=== PATIENT | male | born 1950 | race Caucasian/White ===

== ENCOUNTER 2017-03-07 20:05 | Inpatient (IN) | payer MEDICARE, MEDICAID ==
[~2017-03-07] VITALS: Ht 167.6 cm; Wt 90.7 kg
[~2017-03-07 20:05] MED LIST: AC325T PO; ALBU8.5H2 IH; ASP81TEC PO; BETH25TA PO; CEPH500C PO; CIPR500S2 PO; CLPD75T PO; CPR500T PO; EZET10TA5 PO; FENO145T2 PO; FLAXSEED PO; FLT11013 IH; FLUN7INH IH; FLUO20CA25 PO; HYDR-3583 PO; IBP800T PO; INSU100C4 SQ; ISM60TCR PO; LORA10TA7 PO; LORA1TAB PO; MAGN100T3 PO; MAGN250T12 PO; MTP25TSR PO; MULT-608 PO; NF-ESOM40C PO; NTR.4SL SL; ONDAN4ODT PO; ONDN4T PO; OXAP600T2 PO; OXYC-309 PO; OXYC1TAB87 PO; PGLT30T PO; PHEN200C PO; PHN100C PO; RAMI10CA PO; SIMV80TA3 PO; SULF1TAB38 PO; TML.25OP OU; TMSL.4C PO; ZOLP10TA5 PO; oxycodone PO
[2017-03-07] MEDS ORDERED: fentaNYL INJECTION 100 MCG/2 ML AMP IVP STA (20:15)
[2017-03-07 20:28] LABS: BASOPHILS % (AUTO) 0 % (0-10); EOSINOPHILS # (AUTO) 0.1 10^3/uL (0.0-0.3); EOSINOPHILS % (AUTO) 1 % (0-10); LYMPHOCYTES # (AUTO) 2.8 X 10^3 (1.0-4.0); LYMPHOCYTES % (AUTO) 28 % (12-44); MEAN CORPUSCULAR HEMOGLOBIN 30 PG (25-34); MEAN CORPUSCULAR HGB CONC 36 G/DL (32-36); MEAN CORPUSCULAR VOLUME 83 FL (80-99); MONOCYTES # (AUTO) 0.9 X 10^3 (0.0-1.0); MONOCYTES % (AUTO) 9 % (0-12); NEUTROPHILS # (AUTO) 6.1 X 10^3 (1.8-7.8); NEUTROPHILS % (AUTO) 62 % (42-75); PLATELET COUNT 331 10^3/uL (130-400); RED BLOOD COUNT 4.72 10^6/uL (4.35-5.85); RED CELL DISTRIBUTION WIDTH 13.7 % (10.0-14.5); WHITE BLOOD COUNT 9.8 10^3/uL (4.3-11.0)
[2017-03-07 20:31] LABS: INR 1.1 (0.8-1.4); PROTHROMBIN TIME PATIENT 14.1 SEC (12.2-14.7)
[2017-03-07 20:43] LABS: ALANINE AMINOTRANSFERASE 22 U/L (0-55); ALBUMIN 4.2 G/DL (3.2-4.5); ANION GAP 11 MMOL/L (5-14); ASPARTATE AMINO TRANSFERASE 35 U/L (5-34); BILIRUBIN,TOTAL 0.5 MG/DL (0.1-1.0); BLOOD UREA NITROGEN 13 MG/DL (7-18); BUN/CREATININE RATIO 15; CALCIUM 9.1 MG/DL (8.5-10.1); CARBON DIOXIDE 23 MMOL/L (21-32); CHLORIDE 97 MMOL/L (98-107); CREATININE SERUM 0.87 MG/DL (0.60-1.30); GFR ESTIMATED > 60; GLUCOSE 125 MG/DL (70-105); MAGNESIUM 1.8 MG/DL (1.8-2.4); SODIUM 131 MMOL/L (135-145); TOTAL PROTEIN 6.7 G/DL (6.4-8.2)
[2017-03-07] MEDS ORDERED: OLAN2.5T19 PO (20:46)
[2017-03-07] MEDS ORDERED: GABA-486 PO (20:46)
[2017-03-07] MEDS ORDERED: TEMA15CA PO (20:46)
[2017-03-07] MEDS ORDERED: EZET10TA5 PO (20:46)
[2017-03-07 20:51] LABS: TROPONIN I < 0.30 NG/ML (<0.30)
[2017-03-07] MEDS ORDERED: morphine INJ 10 MG/ML 1ML (SYR OR VIAL) IVP STA (21:00)
--- NOTE | 2017-03-07 21:01 | Diagnostic Imaging Report ---
INDICATION: Left-sided pain post fall TECHNIQUE: Three views of the left shoulder. CORRELATION STUDY: None FINDINGS: The glenohumeral and acromioclavicular alignment are maintained and unremarkable. There is no evidence for acute fracture or dislocation. Visualized soft tissues are unremarkable. IMPRESSION: 1. Negative for acute bony abnormality about the shoulder. Dictated by: Dictated on workstation # [id number]
--- NOTE | 2017-03-07 21:06 | Diagnostic Imaging Report ---
INDICATION: Left hip pain post fall. TECHNIQUE: AP pelvis, 9:01 p.m. CORRELATION UMBERTO None. FINDINGS: There is an impacted, angulated, left proximal femur fracture. Fractures at the lateral aspect of the femoral neck approaching the intertrochanteric region. Coxa vera alignment of approximately 90 degrees is present. Impaction at the major fracture line. Right hip is maintained. The remainder of the pelvis is intact. IMPRESSION: Impacted angulated proximal left femur fracture. Dictated by: Dictated on workstation # [id number]
--- NOTE | 2017-03-07 21:08 | Diagnostic Imaging Report ---
INDICATION: Fall with left-sided pain, hip fracture. TECHNIQUE: Single view chest, 9:00 p.m. CORRELATION STUDY: 12/23/2010. FINDINGS: Poststernotomy and coronary artery bypass changes. A long coronary artery stent is over the superior left heart border. Heart size and mediastinum are enlarged and mildly prominent. Vasculature is within normal limits. There is what appears to be likely senescent type change about the lung parenchyma, without evidence for infiltrate, effusion or pneumothorax. No displaced fracture. IMPRESSION: Poststernotomy changes. Negative for acute abnormality. Dictated by: Dictated on workstation # [id number]
--- NOTE | 2017-03-07 21:09 | Diagnostic Imaging Report ---
INDICATION: Pain post fall. TECHNIQUE: AP and lateral views left femur 9:03 PM. CORRELATION STUDY: None FINDINGS: There is impacted and angulated fracture at the left femoral neck/intertrochanteric portion of the proximal femur. Coxa vera alignment with approximately 90 degrees angulation. Impaction present. More distally, the remainder of the femur intact. Knee with mild degenerative changes, otherwise maintained. IMPRESSION: 1. Impacted angulated proximal left femur fracture. Dictated by: Dictated on workstation # [id number]
--- NOTE | 2017-03-07 22:08 | Diagnostic Imaging Report ---
PROCEDURE: CT left lower extremity without contrast. TECHNIQUE: Multiple contiguous axial images were obtained through the left lower extremity without the use of intravenous contrast. Sagittal and coronal reformations were then performed. INDICATION: Fall, hip fracture. FINDINGS: There is a comminuted fracture at the proximal left femur. Fracture is at the mid to distal aspect of the femoral neck extending into the intertrochanteric portion. This involves the greater and lesser trochanters. There is a moderate impaction. Moderate angulation of approximately 90 degrees is present. There is superior subluxation of the femoral shaft. The femoral head acetabular relationship is maintained. The pelvis is intact. There is some edema around the fracture lines. Urinary bladder appears to be mildly distended. Penile prosthesis is present. IMPRESSION: Comminuted impacted angulated proximal left femur fracture at the level of the femoral neck and intertrochanteric portion. Dictated by: Dictated on workstation # [id number]
[2017-03-07 22:12] VITALS: BP 137/75
[2017-03-07] MEDS ORDERED: LORazepam INJ 2 MG/ML (ATIVAN) VIAL IV PRN (22:45)
[2017-03-07] MEDS ORDERED: CATHETER FLUSH 10 ML SYR IV PRN (22:45)
[2017-03-07] MEDS ORDERED: morphine INJ 10 MG/ML 1ML (SYR OR VIAL) IV PRN (22:45)
[2017-03-07] MEDS: D5 1/2 NS 1000 ML IV SOLUTION 1,000 ML IV SCH (22:50)
[2017-03-08 00:28] VITALS: BP 132/70
[2017-03-08] MEDS: fentaNYL INJECTION 100 MCG/2 ML AMP IVP PRN ×9 (00:45→20:11)
[2017-03-08] MEDS: inSUlin (REGULAR) HUMAN 1 UNIT/0.01 ML (CHARGE PER UNIT) SC SCH ×4 (02:16→18:10)
--- NOTE | 2017-03-08 02:45 | ED Hip Pain/Injury ---
General Chief Complaint: Hip/Pelvic Problems Stated Complaint: L HIP FRACTURE; SEIZURE DISORDER; CAD Nursing Triage Note: LEFT HIP PAIN S/P FALL FROM STANDING POSITION AFTER SEIZURE. APPROX. 1900 Source: patient, old records History of Present Illness Time seen by provider: 20:15 Initial Comments PT ARRIVES [facility]IA [facility] FROM HOME PT HAS KNOWN SEIZURE DISORDER, AND STATES HE WAS ON HIS WAY [place] AND HAD A SEIZURE AND INJURED LEFT HIP DENIES HITTING HIS HEAD--WAS WITNESSED BY A FRIEND ALSO STATES LEFT SHOULDER IS SORE, BUT "DOESN'T REALLY HURT" EMS GAVE 150 MCG FENTANYL PRIOR TO ARRIVAL NO HEAD PAIN NO NECK OR BACK PAIN NO PARESTHESIAS OR MOTOR DEFICITS NO CHEST PAIN OR SHORTNESS OF BREATH OR PALPITATIONS NO NAUSEA/VOMITING NO RECENT ILLNESS Other PCP: LEORA HERMOSILLO [employer] INSTALLER: MERCEDES ADAMS Allergies and Home Medications Allergies Coded Allergies: codeine (Unverified Allergy, Unknown, 03/07/17) diazepam (Unverified Allergy, Unknown, 03/07/17) doxycycline (Unverified Allergy, Unknown, RASH, 03/07/17) phenobarbital (Unverified Allergy, Unknown, 03/07/17) RELAXES ME TOO MUCH piperacillin (Unverified Allergy, Unknown, RASH, 03/07/17) terazosin (Unverified Allergy, Unknown, 03/07/17) CHEST PAIN Home Medications Acetaminophen 325 Mg Tablet, 325-650 MG PO Q6H PRN, (Reported) Albuterol 8.5 Gm Hfa.aer.ad, 8.5 GM IH Q4H PRN, (Reported) 2 PUFFS Aspirin 81 Mg Tabec, 81 MG PO DAILY, (Reported) Bethanechol Chloride 25 Mg Tablet, 25 MG PO QID, (Reported) Clopidogrel 75 Mg Tablet, 1 EACH PO DAILY, (Reported) Esomeprazole Mag Trihydrate 40 Mg Capsule.dr, 40 MG PO DAILY, (Reported) Ezetimibe 10 Mg Tablet, 10 MG PO HS, (Reported) Ezetimibe 10 Mg Tablet, 1 TAB PO UD, #30 (Reported) Fenofibrate,Micronized 145 Mg Tablet, 1 EACH PO AT SUPPER, (Reported) Flunisolide 7 Gm Inh, 0 IH BID, (Reported) 2 PUFFS Fluoxetine Hcl 20 Mg Capsule, 40 MG PO WITH SUPPER, (Reported) Gabapentin 100 Mg Capsule, 1 CAP PO UD, #30 (Reported) Loratadine 10 Mg Tablet, 10 MG PO HS, (Reported) Lorazepam 1 Mg Tablet, 1 EACH PO BID, (Reported) Magnesium Oxide 250 Mg Tablet, 1 EACH PO TIDWM, (Reported) Multivitamins 1 Tab Tablet, 1 TAB PO DAILY, (Reported) Nitroglycerin 0.4 Mg Subl, 0.4 MG SL NEEDED, (Reported) Olanzapine 2.5 Mg Tablet, 1 TAB PO UD, #30 (Reported) Phenytoin Sodium 100 Mg Cap, 200 MG PO DAILY, (Reported) Phenytoin Sodium 100 Mg Cap, 100 MG PO HS, (Reported) Pioglitazone Hcl 30 Mg Tab, 30 MG PO DAILY, (Reported) Ramipril 10 Mg Capsule, 10 MG PO NOON, (Reported) Simvastatin 80 Mg Tablet, 40 MG PO HS, (Reported) Tamsulosin Hcl 0.4 Mg Cap, 0.4 MG PO DAILY@1630, (Reported) Temazepam 15 Mg Capsule, 1 CAP PO UD, #30 (Reported) Timolol 15 Ml Drops, 1 DROP OU DAILY, (Reported) Constitutional: no symptoms reported EENTM: no symptoms reported Respiratory: no symptoms reported Cardiovascular: no symptoms reported Gastrointestinal: no symptoms reported Genitourinary: no symptoms reported Musculoskeletal: see HPI, No back pain, joint pain (LEFT HIP, LEFT SHOULDER), No neck pain Skin: no symptoms reported Psychiatric/Neurological: See HPI, Denies Headache, Denies Numbness, Denies Paresthesia, Seizure, Denies Tingling Past Gflinkj-Ogwnkg-Kdvcld Hx Patient Social History Alcohol Use: Denies Use Recreational Drug Use: No Smoking Status: Current Everyday Smoker (1 PPD) Type Used: Cigarettes 2nd Hand Smoke Exposure: Yes Recent Foreign Travel: No Contact w/Someone Who Travel: No Recent Infectious Disease Expo: No Immunizations Up To Date Date of Pneumonia Vaccine: Aug 08, 2010 Date of Influenza Vaccine: Aug 08, 2012 Seasonal Allergies Seasonal Allergies: No Surgeries HX Surgeries: Yes (CABG 1999; TOTAL OF 16 STENTS--LAST ONE IN 2011, PER PT ON 02/25/17. LITHOTRIPSY; LEFT CARPAL TUNNEL AND MULTIPLE LEFT TRIGGER FINGER RELEASES 2012--DR. CLAYTON; ) Surgeries: Appendectomy, Gallbladder, Orthopedic, Penile Implant, Renal, Transurethral Resection Respiratory Hx Respiratory Disorders: Yes Respiratory Disorders: COPD Cardiovascular Hx Cardiac Disorders: Yes (CABG IN 2000; 16 CARDIAC STENTS) Cardiac Disorders: Coronary Artery Disease, High Cholesterol, Hypertension Neurological Hx Neurological Disorders: Yes Neurological Disorders: Headaches /Migraines, Seizure Disorder Reproductive System Hx Reproductive Disorders: Yes (ED--PENILE IMPLANT) Sexually Transmitted Disease: No Genitourinary Hx Genitourinary Disorders: Yes (ED; URINARY FREQUENCY) Genitourinary Disorders: Benign Prostatic Hyperpl, Kidney Stones Gastrointestinal Hx Gastrointestinal Disorders: Yes Gastrointestinal Disorders: Gastroesophageal Reflux, Ulcer Musculoskeletal Hx Musculoskeletal Disorders: Yes (MUSCLE WEAKNESS) Musculoskeletal Disorders: Arthritis Endocrine Hx Endocrine Disorders: Yes Endocrine Disorders: Diabetes, Non-Insulin dep HEENT HX ENT Disorders: Yes ([place] Palsy) HEENT Disorders: Cataract, Glaucoma Cancer Hx Cancer: No Psychosocial Hx Psychiatric Problems: Yes Behavioral Health Disorders: Anxiety, Bipolar, Depression Integumentary HX Skin/Integumentary Disorder: No Blood Transfusions Hx Blood Disorders: Yes Physical Exam Vital Signs Vital Sign - Last 12Hours 03/07/17 20:14 Temp 98.2 Pulse 78 Resp 20 B/P (MAP) 150/83 Pulse Ox 96 O2 Delivery Nasal Cannula O2 Flow Rate 2.00 Capillary Refill : Less Than 3 Seconds General Appearance: No Apparent Distress, WD/WN HEENT: Other (NO EXTERNAL EVIDENCE OF TRAUMA TO HEAD) Neck: Full Range of Motion, Normal Inspection, Non Tender, Supple Cardiovascular: Regular Rate, Rhythm, No Edema, No JVD, No Murmur, Normal Peripheral Pulses Respiratory: Normal Breath Sounds, No Accessory Muscle Use, No Respiratory Distress Peripheral Pulses: 1+ Dorsalis Pedis (R), 1+ Left Dors-Pedis (L), 1+ Radial Pulses (R), 1+ Radial Pulses (L) Gastrointestinal: Normal Bowel Sounds, No Organomegaly, No Pulsatile Mass, Non Tender, Soft Back: No CVA Tenderness, No Vertebral Tenderness Extremity: Normal Capillary Refill, No Calf Tenderness, No Pedal Edema, Other ( LEFT HIP TENDERNESS WITH SHORTNENING AND EXTERNAL ROTOATION OF LEFT LEG. MILD LEFT SHOULDER TENDERNESS WITHOUT DEFORMITY AND FULL ROM OF LEFT ARM. 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 Norm as Tested Skin: Normal Color, Warm/Dry Progress/Results/Core Measures Results/Orders Lab Results Laboratory Tests Test 03/07/17 20:05 Range/Units White Blood Count 9.8 4.3-11.0 10^3/uL Red Blood Count 4.72 4.35-5.85 10^6/uL Hemoglobin 14.0 13.3-17.7 G/DL Hematocrit 39 L 40-54 % Mean Corpuscular Volume 83 80-99 FL Mean Corpuscular Hemoglobin 30 25-34 PG Mean Corpuscular Hemoglobin Concent 36 32-36 G/DL Red Cell Distribution Width 13.7 10.0-14.5 % Platelet Count 331 130-400 10^3/uL Mean Platelet Volume 8.0 7.4-10.4 FL Neutrophils (%) (Auto) 62 42-75 % Lymphocytes (%) (Auto) 28 12-44 % Monocytes (%) (Auto) 9 0-12 % Eosinophils (%) (Auto) 1 0-10 % Basophils (%) (Auto) 0 0-10 % Neutrophils # (Auto) 6.1 1.8-7.8 X 10^3 Lymphocytes # (Auto) 2.8 1.0-4.0 X 10^3 Monocytes # (Auto) 0.9 0.0-1.0 X 10^3 Eosinophils # (Auto) 0.1 0.0-0.3 10^3/uL Basophils # (Auto) 0.0 0.0-0.1 10^3/uL Prothrombin Time 14.1 12.2-14.7 SEC INR Comment 1.1 0.8-1.4 Activated Partial Thromboplast Time 32 24-35 SEC Sodium Level 131 L 135-145 MMOL/L Potassium Level 4.0 3.6-5.0 MMOL/L Chloride Level 97 L 98-107 MMOL/L Carbon Dioxide Level 23 21-32 MMOL/L Anion Gap 11 5-14 MMOL/L Blood Urea Nitrogen 13 7-18 MG/DL Creatinine 0.87 0.60-1.30 MG/DL Estimat Glomerular Filtration Rate > 60 BUN/Creatinine Ratio 15 Glucose Level 125 H 70-105 MG/DL Calcium Level 9.1 8.5-10.1 MG/DL Magnesium Level 1.8 1.8-2.4 MG/DL Total Bilirubin 0.5 0.1-1.0 MG/DL Aspartate Amino Transf (AST/SGOT) 35 H 5-34 U/L Alanine Aminotransferase (ALT/SGPT) 22 0-55 U/L Alkaline Phosphatase 61 40-136 U/L Troponin I < 0.30 <0.30 NG/ML Total Protein 6.7 6.4-8.2 G/DL Albumin 4.2 3.2-4.5 G/DL Phenytoin (Dilantin) Level 11.8 10.0-20.0 UG/ML My Orders Orders - LAURITA MOORE DO Fentanyl Injection (Sublimaze Injection (03/07/17 20:15) Chest 1 View, Ap/Pa Only (03/07/17 20:20) Femur, Left, 2 Views (03/07/17 20:20) Pelvis (03/07/17 20:20) Hip, Left, 2 Views (03/07/17 20:20) Shoulder, Left, 3 Views (03/07/17 20:20) Saline Lock/Iv-Start (03/07/17 20:20) Cbc With Automated Diff (03/07/17 20:20) Comprehensive Metabolic Panel (03/07/17 20:20) Magnesium (03/07/17 20:20) Protime With Inr (03/07/17 20:20) Partial Thromboplastin Time (03/07/17 20:20) Troponin I (03/07/17 20:20) Vital Signs/I&O Vital Sign - Last 12Hours 03/07/17 20:14 Temp 98.2 Pulse 78 Resp 20 B/P (MAP) 150/83 Pulse Ox 96 O2 Delivery Nasal Cannula O2 Flow Rate 2.00 Blood Pressure Mean: 90 Point of Care Testing Finger Stick Blood Glucose: 194 Progress Note : Progress Note NO DETERIORATION IN PT'S CONDITION DURING ER STAY Diagnostic Imaging Comments XRAYS LEFT SHOULDER--NO ACUTE PROCESS XRAYS LEFT HIP, FEMUR AND PELVIS--FX LEFT FEMORAL NECK /INTERTROCHANTERIC AREA CXR--NO ACUTE PROCESS ALL PER RADIOLOGIST REPORTS Reviewed: Reviewed by Me Departure Communication Progress Notes 2099--SPOKE WITH DR. MCCRARY, SURGEON PASTEURIZER. ACCEPTS PT FOR ADMIT--PLAN IS TO TAKE PT TO SURGERY SOMETIME TOMORROW 2107--SPOKE WITH DR. ESCOTO FOR MEDICAL MANAGEMENT 2109--ATTEMPTING TO CONTACT DR. VARGAS FOR CARDIOLOGY CONSULT--MESSAGE LEFT ON CELL 2124--SPOKE WITH DR. VARGAS, INFORMED OF CONSULT. 2130--DR. MATUTE CALLED. DR. MCCRARY HAS CONTACTED HIM AND HE WILL BE TAKING PT TO SURGERY TOMORROW AFTERNOON. WANTS CT OF HIP DONE TONIGHT. Impression Impression: Primary Impression: Closed left hip fracture Additional Impressions: Seizure disorder CAD WITH CABG AND MULTIPLE STENTS NIDDM Disposition: ADMITTED INPATIENT Condition: Stable Decision to Admit Reason: Admit from ER (Trauma) Decision to Admit/Date: Mar 07, 2017 Time/Decision to Admit Time: 21:00 Departure-Patient Inst. Referrals: SARY GUPTA MD (PCP) Primary Care Physician LAURITA MOORE DO March 08, 2017 02:45
[2017-03-08 03:32] VITALS: BP 126/76
[2017-03-08 05:32] LABS: BASOPHILS % (AUTO) 0 % (0-10); EOSINOPHILS % (AUTO) 0 % (0-10); LYMPHOCYTES # (AUTO) 1.5 X 10^3 (1.0-4.0); LYMPHOCYTES % (AUTO) 14 % (12-44); MEAN CORPUSCULAR HEMOGLOBIN 29 PG (25-34); MEAN CORPUSCULAR HGB CONC 35 G/DL (32-36); MEAN CORPUSCULAR VOLUME 83 FL (80-99); MEAN PLATELET VOLUME 7.8 FL (7.4-10.4); MONOCYTES # (AUTO) 1.1 X 10^3 (0.0-1.0); MONOCYTES % (AUTO) 11 % (0-12); NEUTROPHILS % (AUTO) 75 % (42-75); PLATELET COUNT 298 10^3/uL (130-400); RED BLOOD COUNT 4.74 10^6/uL (4.35-5.85); RED CELL DISTRIBUTION WIDTH 13.8 % (10.0-14.5); WHITE BLOOD COUNT 10.7 10^3/uL (4.3-11.0)
[2017-03-08 05:51] LABS: ALANINE AMINOTRANSFERASE 271 U/L (0-55); ALBUMIN 3.8 G/DL (3.2-4.5); ANION GAP 9 MMOL/L (5-14); ASPARTATE AMINO TRANSFERASE 712 U/L (5-34); BILIRUBIN,TOTAL 1.7 MG/DL (0.1-1.0); BLOOD UREA NITROGEN 10 MG/DL (7-18); BUN/CREATININE RATIO 12; CALCIUM 8.4 MG/DL (8.5-10.1); CARBON DIOXIDE 23 MMOL/L (21-32); CHLORIDE 97 MMOL/L (98-107); CREATININE SERUM 0.81 MG/DL (0.60-1.30); GFR ESTIMATED > 60; GLUCOSE 181 MG/DL (70-105); SODIUM 129 MMOL/L (135-145); TOTAL PROTEIN 6.1 G/DL (6.4-8.2)
[2017-03-08] MEDS: CATHETER FLUSH 10 ML SYR IV SCH ×3 (06:08→21:22)
[2017-03-08] MEDS: D5 1/2 NS 1000 ML IV SOLUTION 1,000 ML IV SCH ×2 (07:13→16:17)
--- NOTE | 2017-03-08 08:25 | Diagnostic Imaging Report ---
2 views of the left hip. INDICATION: Injury. FINDINGS: There is an impacted angulated intertrochanteric fracture. Coxa vara alignment is seen. No subluxation or dislocation of the hip joint. IMPRESSION: Displaced and angulated intertrochanteric fracture. Dictated by: Dictated on workstation # [id number]
--- NOTE | 2017-03-08 08:50 | Consultation-Cardiology ---
HPI-Cardiology Cardiology Consultation Date of Consultation 03/08/17 Date of Admission Indication: coronary artery disease HPI 66 years old gentleman with extensive cardiac history, had history of CABG, multiple interventions in the past, hypertension and hyperlipidemia in addition to tobaccoism. Patient was getting out of a chair where he had unsteady gait and fell and injured himself. He denied any syncope, denied any seizure activity, denied any chest pain or shortness of breath. Still having pain on his side from the fall. I was called for preoperative cardiac evaluation Home Medications & Allergies Allergies: Coded Allergies: codeine (Unverified Allergy, Unknown, 03/07/17) diazepam (Unverified Allergy, Unknown, 03/07/17) doxycycline (Unverified Allergy, Unknown, RASH, 03/07/17) phenobarbital (Unverified Allergy, Unknown, 03/07/17) RELAXES ME TOO MUCH piperacillin (Unverified Allergy, Unknown, RASH, 03/07/17) terazosin (Unverified Allergy, Unknown, 03/07/17) CHEST PAIN Home Medication List Reviewed: Yes BLA-Leemom-Muxval Hx Patient Social History Marital Status: Employed/Student: retired Alcohol Use: Denies Use Recreational Drug Use: No Smoking Status: Current Everyday Smoker (1 PPD) Type Used: Cigarettes 2nd Hand Smoke Exposure: Yes Recent Foreign Travel: No Recent Infectious Disease Expo: No Recent Hopitalizations: No Physical Abuse Screen: No Sexual Abuse: No Immunizations Up To Date Date of Pneumonia Vaccine: Nov 08, 2016 Date of Influenza Vaccine: Aug 08, 2012 Past Medical History past medical history as discussed below Family Medical History Family Medical Hx noncontributory to his current condition Constitutional: see HPI, malaise, weakness EENTM: no symptoms reported, see HPI Respiratory: no symptoms reported, see HPI Cardiovascular: no symptoms reported, see HPI Gastrointestinal: no symptoms reported, see HPI Genitourinary: no symptoms reported, see HPI Musculoskeletal: see HPI, back pain, joint pain, other (left leg and hip pain) Skin: no symptoms reported, see HPI Psychiatric/Neurological: No Symptoms Reported, See HPI Reviewed Test Results Reviewed Test Results Lab Laboratory Tests Test 03/07/17 20:05 03/08/17 02:04 03/08/17 05:20 Range/Units White Blood Count 9.8 10.7 4.3-11.0 10^3/uL Red Blood Count 4.72 4.74 4.35-5.85 10^6/uL Hemoglobin 14.0 13.9 13.3-17.7 G/DL Hematocrit 39 L 39 L 40-54 % Mean Corpuscular Volume 83 83 80-99 FL Mean Corpuscular Hemoglobin 30 29 25-34 PG Mean Corpuscular Hemoglobin Concent 36 35 32-36 G/DL Red Cell Distribution Width 13.7 13.8 10.0-14.5 % Platelet Count 331 298 130-400 10^3/uL Mean Platelet Volume 8.0 7.8 7.4-10.4 FL Neutrophils (%) (Auto) 62 75 42-75 % Lymphocytes (%) (Auto) 28 14 12-44 % Monocytes (%) (Auto) 9 11 0-12 % Eosinophils (%) (Auto) 1 0 0-10 % Basophils (%) (Auto) 0 0 0-10 % Neutrophils # (Auto) 6.1 8.0 H 1.8-7.8 X 10^3 Lymphocytes # (Auto) 2.8 1.5 1.0-4.0 X 10^3 Monocytes # (Auto) 0.9 1.1 H 0.0-1.0 X 10^3 Eosinophils # (Auto) 0.1 0.0 0.0-0.3 10^3/uL Basophils # (Auto) 0.0 0.0 0.0-0.1 10^3/uL Prothrombin Time 14.1 12.2-14.7 SEC INR Comment 1.1 0.8-1.4 Activated Partial Thromboplast Time 32 24-35 SEC Sodium Level 131 L 129 L 135-145 MMOL/L Potassium Level 4.0 4.0 3.6-5.0 MMOL/L Chloride Level 97 L 97 L 98-107 MMOL/L Carbon Dioxide Level 23 23 21-32 MMOL/L Anion Gap 11 9 5-14 MMOL/L Blood Urea Nitrogen 13 10 7-18 MG/DL Creatinine 0.87 0.81 0.60-1.30 MG/DL Estimat Glomerular Filtration Rate > 60 > 60 BUN/Creatinine Ratio 15 12 Glucose Level 125 H 181 H 70-105 MG/DL Calcium Level 9.1 8.4 L 8.5-10.1 MG/DL Magnesium Level 1.8 1.8-2.4 MG/DL Total Bilirubin 0.5 1.7 H 0.1-1.0 MG/DL Aspartate Amino Transf (AST/SGOT) 35 H 712 H 5-34 U/L Alanine Aminotransferase (ALT/SGPT) 22 271 H 0-55 U/L Alkaline Phosphatase 61 111 40-136 U/L Troponin I < 0.30 <0.30 NG/ML Total Protein 6.7 6.1 L 6.4-8.2 G/DL Albumin 4.2 3.8 3.2-4.5 G/DL Phenytoin (Dilantin) Level 11.8 10.0-20.0 UG/ML Glucometer 194 H 70-110 MG/DL Physical Exam Vital Signs Vital Sign - Last 12Hours 03/07/17 20:14 Temp 98.2 Pulse 78 Resp 20 B/P (MAP) 150/83 Pulse Ox 96 O2 Delivery Nasal Cannula O2 Flow Rate 2.00 Capillary Refill : Less Than 3 SecondsLess Than 3 Seconds General Appearance: WD/WN, Mild Distress Eyes: Bilateral Eye EOMI, Bilateral Eye Normal Inspection, Bilateral Eye PERRL HEENT: PERRL/EOMI, TMs Normal, Normal ENT Inspection, Pharynx Normal Neck: Full Range of Motion, Normal Inspection, Non Tender, Supple, Carotid Bruit Respiratory: Chest Non Tender, Lungs Clear, Normal Breath Sounds, No Accessory Muscle Use, No Respiratory Distress Cardiovascular: Regular Rate, Rhythm, No Edema, No Gallop, No JVD, Normal Peripheral Pulses, Systolic Murmur Gastrointestinal: Normal Bowel Sounds, No Organomegaly, No Pulsatile Mass, Non Tender, Soft Back: Normal Inspection, No CVA Tenderness, No Vertebral Tenderness Extremity: Normal Capillary Refill, Normal Inspection, Normal Range of Motion, Non Tender, No Calf Tenderness, No Pedal Edema Neurologic/Psychiatric: Alert, Oriented x3, No Motor/Sensory Deficits, Normal Mood/Affect Skin: Normal Color, Warm/Dry Lymphatic: No Adenopathy A/P-Cardiology Admission Diagnosis coronary artery disease Hypertension Hyperlipidemia Femur fracture Assessment/Plan Coronary artery disease, history of CABG, multiple interventions, patient is reporting having a total of 16 stents in the past, no chest pain was reported at this time, I will evaluate 12-lead EKG. Continue to monitor. Hypertension, restart home medication monitor blood pressure Hyperlipidemia Left femur fracture, managed by Dr. Aleman Seizure disorder. Maintained on Dilantin. Preoperative cardiac evaluation, I will evaluate 12-leads EKG, monitor. Patient is considered at intermediate to high risk for perioperative cardiovascular complications, decision regarding the surgery, risks versus benefit is deferred to the surgeon. Clinical Quality Measures DVT/VTE Risk/Contraindication: Risk Factor Score Per Nursin RFS Level Per Nursing on Admit: 4+=Very High MANE VARGAS MD March 08, 2017 08:50
[2017-03-08 09:00] VITALS: BP 137/87
[2017-03-08] MEDS ORDERED: PHENYTOIN 100 MG/2 ML IV SCH (09:00)
[2017-03-08] MEDS ORDERED: NS IV SCH (09:23)
[2017-03-08] MEDS ORDERED: PHENYTOIN IV SCH (09:23)
[2017-03-08] MEDS ORDERED: LACTATED RINGERS 1,000 ML IV PRN (09:42)
[2017-03-08] MEDS ORDERED: TIMO5DRO5 OU (10:20)
[2017-03-08] MEDS ORDERED: IBUP-30 PO (10:20)
[2017-03-08] MEDS ORDERED: ISM60TCR PO (10:20)
[2017-03-08] MEDS ORDERED: SIMV40TA4 PO (10:20)
[2017-03-08] MEDS ORDERED: FLT11013 INH (10:20)
[2017-03-08] MEDS ORDERED: ONDANSETRON 4 MG/2 ML (SDV) Z0FRAN ONE ×2 (11:02→11:34)
[2017-03-08] MEDS ORDERED: LACTATED RINGERS 1,000 ML IV ONE (11:34)
[2017-03-08] MEDS ORDERED: LIDOCAINE PF 2% 10 ML (XYLOCAINE) AMP ONE (11:34)
[2017-03-08] MEDS ORDERED: fentaNYL INJECTION 100 MCG/2 ML AMP ONE ×2 (11:34→14:47)
[2017-03-08] MEDS ORDERED: proPOfol 200 MG/20 ML (DIPRIVAN) VIAL IV ONE (11:34)
[2017-03-08] MEDS ORDERED: ROCURONIUM 50 MG/5 ML (ZEMURON) VIAL IV ONE (11:34)
[2017-03-08] MEDS ORDERED: SUCCINYLCHOLINE INJ 100 MG/5 ML SYR ONE (11:34)
[2017-03-08] MEDS ORDERED: MIDAZOLAM 2 MG/2 ML (VERSED) VIAL ONE (11:35)
[2017-03-08] MEDS ORDERED: ceFAZolin 2 GM/50 ML NS 50 ML IV NR (11:55)
--- NOTE | 2017-03-08 11:57 | History & Physicial ---
History of Present Illness History of Present Illness Reason for visit/HPI 66 yr old WM with a displaced intertrochanteric hip fracture after he fell while getting up from a chair yesterday. He has no history of hip pathology. he does have seizure disorder. he was DEMOND by cardiology as he does have a significant health history including CABG. He understands the need and also the risk of surgical stabilization. Date of Admission Mar 07, 2017 at 21:00 I consulted on this patient on 03/08/17 11:[address] Allan Maloney DO Admitting Physician Shahram Mccallum MD Consult Allergies and Home Medications Allergies Coded Allergies: codeine (Unverified Allergy, Unknown, 03/07/17) diazepam (Unverified Allergy, Unknown, 03/07/17) doxycycline (Unverified Allergy, Unknown, RASH, 03/07/17) phenobarbital (Unverified Allergy, Unknown, 03/07/17) RELAXES ME TOO MUCH piperacillin (Unverified Allergy, Unknown, RASH, 03/07/17) terazosin (Unverified Allergy, Unknown, 03/07/17) CHEST PAIN Home Medications Albuterol 8.5 Gm Hfa.aer.ad, 2 PUFF IH Q4H PRN for SHORTNESS OF BREATH, ( Reported) Aspirin 81 Mg Tabec, 81 MG PO DAILY, (Reported) Bethanechol Chloride 25 Mg Tablet, 25 MG PO QID, (Reported) Clopidogrel 75 Mg Tablet, 75 MG PO DAILY, (Reported) Esomeprazole Mag Trihydrate 40 Mg Capsule.dr, 40 MG PO DAILY, (Reported) Ezetimibe 10 Mg Tablet, 10 MG PO HS, (Reported) Fenofibrate,Micronized 145 Mg Tablet, 145 MG PO 1700, (Reported) Fluoxetine Hcl 20 Mg Capsule, 40 MG PO DAILY, (Reported) TAKES 2 (20MG) CAPSULES Fluticasone Propionate 1 Ea Aero, 1 PUFF INH BID, (Reported) Gabapentin 100 Mg Capsule, 100 MG PO HS, (Reported) Ibuprofen 200 Mg Tablet, 400 MG PO DAILY, (Reported) TAKES 2 (200MG) TABLETS Isosorbide Mononitrate 60 Mg Tab, 60 MG PO BID, (Reported) Loratadine 10 Mg Tablet, 10 MG PO HS, (Reported) Lorazepam 1 Mg Tablet, 1 MG PO BID, (Reported) Magnesium Oxide 250 Mg Tablet, 250 MG PO TID, (Reported) Multivitamins 1 Tab Tablet, 1 TAB PO DAILY, (Reported) Nitroglycerin 0.4 Mg Subl, 0.4 MG SL UD PRN for CHEST PAIN, (Reported) Olanzapine 2.5 Mg Tablet, 2.5 MG PO HS, (Reported) Phenytoin Sodium 100 Mg Cap, 200 MG PO BID, (Reported) Pioglitazone Hcl 30 Mg Tab, 30 MG PO DAILY, (Reported) Ramipril 10 Mg Capsule, 10 MG PO 1200, (Reported) Simvastatin 40 Mg Tablet, 40 MG PO HS, (Reported) Tamsulosin Hcl 0.4 Mg Cap, 0.4 MG PO 1730, (Reported) Temazepam 15 Mg Capsule, 15 MG PO HS, (Reported) Timolol Maleate 5 Ml Drops, 1 DROP OU BID, (Reported) Past Mxzgvfo-Ethemh-Bbqxmt Hx Patient Social History Marrital Status: Employed/Student: retired Alcohol Use: Denies Use Recreational Drug Use: No Smoking Status: Current Everyday Smoker (1 PPD) Type Used: Cigarettes 2nd Hand Smoke Exposure: Yes Physical Abuse Screen: No Sexual Abuse: No Recent Foreign Travel: No Contact w/other who traveled: No Recent Hopitalizations: No Recent Infectious Disease Expo: No Immunizations Up To Date Date of Pneumonia Vaccine: Nov 08, 2016 Date of Influenza Vaccine: Aug 08, 2012 Seasonal Allergies Seasonal Allergies: No Surgeries HX Surgeries: Yes Surgeries: Appendectomy, Gallbladder, Orthopedic, Penile Implant, Renal, Transurethral Resection Respiratory Hx Respiratory Disorders: Yes Cardiovascular Hx Cardiovascular Disorders: Yes (CABG IN 1999; 16 CARDIAC STENTS) Cardiac Disorders: Coronary Artery Disease, High Cholesterol, Hypertension Neurological Hx Neurological Disorders: Yes Neurological Disorders: Headaches /Migraines, Seizure Disorder Reproductive System Hx Reproductive Disorders: Yes (ED--PENILE IMPLANT) Sexually Transmitted Disease: No HIV/AIDS: No Genitourinary Hx Genitourinary Disorders: Yes (ED; URINARY FREQUENCY) Genitourinary Disorders: Benign Prostatic Hyperpl, Kidney Stones Gastrointestinal Hx Gastrointestinal Disorders: Yes Gastrointestinal Disorders: Gastroesophageal Reflux, Ulcer Musculoskeletal Hx Musculoskeletal Disorders: Yes (MUSCLE WEAKNESS) Musculoskeletal Disorders: Arthritis Endocrine Hx Endocrine Disorders: Yes Endocrine Disorders: Diabetes, Non-Insulin dep HEENT HX ENT Disorders: Yes ([place] Palsy) HEENT Disorders: Cataract, Glaucoma Loss of Vision: Denies Hearing Impairment: Hard of Hearing Cancer Hx Cancer: No Psychosocial Hx Psychiatric Problems: Yes Behavioral Health Disorders: Anxiety, Bipolar, Depression Integumentary HX Skin/Integumentary Disorder: No Blood Transfusions Hx Blood Disorders: Yes Adverse Reaction to a Blood Tr: No Constitutional: no symptoms reported Physical Exam Vital Signs Vital Sign - Last 12Hours 03/07/17 20:14 Temp 98.2 Pulse 78 Resp 20 B/P (MAP) 150/83 Pulse Ox 96 O2 Delivery Nasal Cannula O2 Flow Rate 2.00 Capillary Refill : Less Than 3 SecondsLess Than 3 Seconds Extremity: Other (LLE short and externally rotated, 5/5 dorsiflexion, SILT all dermatomes, 2/4 DP, PT) Assessment/Plan Admission Diagnosis ASSESSMENT: L hip intertrochanteric hip fracture PLAN: L hip intramedullary nailing plan for WBAT LLE post op post op DVT prophylaxis Clinical Quality Measures DVT/VTE Risk/Contraindication: Risk Factor Score Per Nursin RFS Level Per Nursing on Admit: 4+=Very High ALLAN MALONEY DO March 08, 2017 11:57
--- NOTE | 2017-03-08 11:57 | Progress Note-Pre Operative ---
Pre-Operative Progress Note H&P Reviewed The H&P was reviewed, patient examined and no changes noted. Date H&P Reviewed: March 08, 2017 Time H&P Reviewed: 11:57 Pre-Operative Diagnosis: displaced hip fracture ALLAN MATUTE DO March 08, 2017 11:57
[2017-03-08 12:00] VITALS: BP 137/87
[2017-03-08] MEDS ORDERED: morphine INJ 10 MG/ML 1ML (SYR OR VIAL) ONE (13:02)
[2017-03-08] MEDS ORDERED: SEVOFLURANE (ULTANE) 15 ML INHAL SOLN ONE ×2 (13:29→13:51)
[2017-03-08] MEDS ORDERED: BUP/EPI 0.5% 1:200,000 (SENSORCAINE) 30 ML VIAL ONE (13:51)
--- NOTE | 2017-03-08 14:21 | Diagnostic Imaging Report ---
Intraoperative views of the left hip. INDICATION: Left hip pinning. FINDINGS: There is interlocked intramedullary fixation with nail through the femoral neck associated with good reduction of the previously seen displaced intertrochanteric fracture on presentation. Fluoroscopy time utilized is 2 minutes and 52 seconds. IMPRESSION: Open reduction internal fixation of left femoral neck fracture in good alignment. Dictated by: Dictated on workstation # [id number]
[2017-03-08] MEDS ORDERED: morphine INJ 4 MG/ML 1 ML (VIAL/SYRINGE) ONE (14:54)
[2017-03-08] MEDS ORDERED: morphine INJ 4 MG/ML 1 ML (VIAL/SYRINGE) IVP PRN (14:58)
--- NOTE | 2017-03-08 15:31 | OPERATIVE REPORT ---
DATE OF SERVICE: 03/08/2017 SURGEON: Con Maloney DO EMBOSSER OPERATOR: ROLAND Aguilar This is a medically necessary procedure. Assistance is necessary for retraction of vital neurovascular structures, without assistance, the procedure would not be possible. PREOPERATIVE DIAGNOSIS: Displaced intratrochanteric left femur fracture. COMPLICATIONS: None. SPECIMENS SENT: None. ESTIMATED BLOOD LOSS: Minimal. ANESTHESIA: General endotracheal intubated anesthesia with local anesthetic. HISTORY OF PRESENT ILLNESS: The patient is a very pleasant 66-year-old gentleman who has a history of multiple seizures. He does take medications for this. Yesterday, he was standing up from a chair, felt a pop and fell to the floor. Denies syncope. He had severe hip pain that led him to the ER where imaging demonstrated a displaced basicervical/intertrochanteric hip fracture. CT scan did confirm this fracture orientation and therefore I concluded that an intramedullary nail would be the most prudent stabilization device. He understood the risks and benefits. Please note the patient did have significant medical history, including CABG, he was cleared by cardiology, another factor that led to my decision to do the nail versus a hemiarthroplasty was then nail is significantly quicker with less blood loss. OPERATION: The patient was identified by name on wristband in the preoperative holding area. His operative site was signed, consent was signed, SCDs were placed, antibiotics were started. He was taken to the operating room theater, placed under general endotracheal tube anesthesia and placed on the fracture table in the supine position. All bony prominences were well padded. His unaffected right lower extremity was flexed at the hip, externally rotates, so as to be out of the way. The ipsilateral left lower extremity was placed in traction, internal rotated, and we manipulated this lower extremity until the fracture was reduced on AP and lateral x-ray. At this point, we prepped and draped the patient in the usual sterile fashion. A formal timeout was conducted. At this point, I made an incision just proximal to the greater trochanter on the left side. I advanced a wire to the piriformis fossa and into the femur. I then reamed the lateral cortex. I then obtained a bald tipped reaming tanvir and I passed this ball tipped tanvir through the fracture site, down to just above the supracondylar line. I measure the appropriate length of my nail and at this point, I reamed up to an 11.5 in diameter. I then chose the nail, placed it on the dentist private practice and carefully packed it longitudinally down the femur until it was seated in the appropriate position. I then, with the aiming device, made an incision over the lateral thigh and passed another guidewire through the medial and lateral cortex of the femur to an area just short of subchondral bone in the femoral head. I obsessed the AP lateral x-ray and the trajectory was appropriate. I measured the length of the helical blade and then obtained this blade. I reamed the lateral cortex and I seated the helical blade into the proximal femur. At this point, I compressed across the fracture site. I did achieve good compression with a very good reduction. I then removed the aiming arm off of the nail and turned my attention to the distal lock. I did place a static lock and I did this using perfect algaaciq fluoroscopy technique. Once the screw was in place, final imaging demonstrated appropriate position of all hardware. I at this point I irrigated the wounds and I closed them in my usual layered fashion and closed the skin with dominic. I applied dressings and took the patient to the supine position. He tolerated the procedure well. The plan at this time is to admit the patient to the hospital where he will be given appropriate medical care by the medicine team. He will be weightbear as tolerated. He will have DVT prophylaxis per medicine. Job ID: [id number] DocumentID: [id number] Dictated Date: 03/08/2017 13:56:36 Tree Climber Date: 03/08/2017 15:30:17 Dictated By: CON MALONEY DO
[2017-03-08 16:27] VITALS: BP 143/74
[2017-03-08] MEDS ORDERED: NITROGLYCERIN SUBLINGUAL 0.4 MG TAB (NITROSTAT) SL PRN (17:45)
[2017-03-08] MEDS ORDERED: BISACODYL 5 MG (DULCOLAX) TABLET PO PRN (17:45)
[2017-03-08] MEDS ORDERED: RT-ALBUTEROL SULF 2.5 MG/3 ML PRE-MIX VIAL IH PRN (18:00)
[2017-03-08] MEDS: ceFAZolin 2 GM/50 ML NS 50 ML IV SCH (18:11)
[2017-03-08] MEDS: ISOSORBIDE MONONITRATE 60 MG (IMDUR) TAB PO SCH (18:12)
[2017-03-08] MEDS: BETHANECHOL 25 MG (URECHOLINE) TAB PO SCH ×2 (18:12→21:22)
[2017-03-08] MEDS: ALFUZOSIN HCL 10 MG TAB (UROXATRAL) PO SCH (18:12)
[2017-03-08] MEDS ORDERED: ONDANSETRON 4 MG/2 ML (SDV) Z0FRAN IVP PRN (19:45)
[2017-03-08 20:20] VITALS: BP 124/73
[2017-03-08] MEDS: OLANZapine 2.5 MG (ZyPREXA) TAB PO SCH (21:20)
[2017-03-08] MEDS: eZETimibe 10 MG (ZETIA) TABLET PO SCH (21:20)
[2017-03-08] MEDS: LORATADINE (CLARITIN) 10 MG TAB PO SCH (21:20)
[2017-03-08] MEDS: PHENYTOIN 100 MG (DILANTIN) CAP PO SCH (21:20)
[2017-03-08] MEDS: TEMAZEPAM 15 MG (RESTORIL) CAP PO SCH (21:20)
[2017-03-08] MEDS: GABAPENTIN 100 MG (NEURONTIN) CAP PO SCH (21:20)
[2017-03-08] MEDS: SIMvastatin 40 MG (ZOCOR) TAB PO SCH (21:20)
[2017-03-08] MEDS: LORazepam 1 MG (ATIVAN) TAB PO SCH (21:20)
[2017-03-08] MEDS: TIMOLOL MALEATE 0.5% 5 ML (TIMOPTIC) BTL OU SCH (21:23)
[2017-03-08] MEDS: RT-FLUTICASONE 110 MCG (FLOVENT) PER PUFF INH SCH (21:23)
[2017-03-09] VITALS: BP 103/58
[2017-03-09] MEDS: inSUlin (REGULAR) HUMAN 1 UNIT/0.01 ML (CHARGE PER UNIT) SC SCH ×2 (00:11→06:23)
[2017-03-09] MEDS: ceFAZolin 2 GM/50 ML NS 50 ML IV SCH ×3 (02:46→18:28)
[2017-03-09] MEDS: fentaNYL INJECTION 100 MCG/2 ML AMP IVP PRN ×4 (02:50→21:38)
[2017-03-09 04:00] VITALS: BP 100/62
[2017-03-09] MEDS: ISOSORBIDE MONONITRATE 60 MG (IMDUR) TAB PO SCH ×2 (06:00→17:15)
[2017-03-09] MEDS: BETHANECHOL 25 MG (URECHOLINE) TAB PO SCH ×4 (06:00→20:44)
[2017-03-09] MEDS: PANTOPRAZOLE 40 MG (PROTONIX) TAB PO SCH (06:00)
[2017-03-09] MEDS: CATHETER FLUSH 10 ML SYR IV SCH ×3 (06:01→20:45)
[2017-03-09 06:03] LABS: MEAN PLATELET VOLUME 8.4 FL (7.4-10.4); RED BLOOD COUNT 3.48 10^6/uL (4.35-5.85); RED CELL DISTRIBUTION WIDTH 13.5 % (10.0-14.5)
--- NOTE | 2017-03-09 06:18 | Progress Note (SOAP) ---
Subjective Subjective/Events-last exam Feels ok, pain controlled, no concerns Objective Exam Vital Signs Date Time Temp Pulse Resp B/P (MAP) Pulse Ox O2 Delivery O2 Flow Rate FiO2 03/09/17 04:00 97.5 92 20 100/62 96 Nasal Cannula 2.00 03/09/17 00:00 96.6 88 16 103/58 98 Nasal Cannula 2.00 03/08/17 21:24 96 3.00 03/08/17 20:20 96.4 94 20 124/73 95 Nasal Cannula 2.00 03/08/17 20:00 3.00 03/08/17 16:27 96.6 91 20 143/74 96 Nasal Cannula 2.00 03/08/17 12:00 97.1 82 20 137/87 97 Nasal Cannula 2.00 03/08/17 10:03 2.50 03/08/17 09:00 97.1 82 20 137/87 97 Nasal Cannula 2.00 I & O 03/09/17 07:00 Intake Total 820 ml Output Total 2220 ml Balance -1400 ml Capillary Refill : Less Than 3 SecondsLess Than 3 Seconds General Appearance: No Apparent Distress Respiratory: No Accessory Muscle Use, No Respiratory Distress Cardiovascular: Regular Rate, Rhythm, Normal Peripheral Pulses Gastrointestinal: soft Extremity: Non Tender, No Calf Tenderness, Swelling, Other (Dressing dry, good motor) Results Lab Laboratory Tests 03/08/17 15:04: Glucometer 170H 03/08/17 18:09: Glucometer 195H 03/09/17 00:10: Glucometer 198H 03/09/17 05:30: White Blood Count 9.0, Red Blood Count 3.48L, Hemoglobin 10.3#L, Hematocrit 29L , Mean Corpuscular Volume 85, Mean Corpuscular Hemoglobin 30, Mean Corpuscular Hemoglobin Concent 35, Red Cell Distribution Width 13.5, Platelet Count 271, Mean Platelet Volume 8.4 Assessment/Plan Assessment/Plan Assess & Plan/Chief Complaint Left Base femoral neck/IT fracture Plan: up with PT today Clinical Quality Measures DVT/VTE Risk/Contraindication: Risk Factor Score Per Nursin RFS Level Per Nursing on Admit: 4+=Very High ASHTYN RICHARDSON MD March 09, 2017 6:18 am
[2017-03-09 06:20] LABS: ALANINE AMINOTRANSFERASE 259 U/L (0-55); ALBUMIN 3.4 G/DL (3.2-4.5); ANION GAP 10 MMOL/L (5-14); ASPARTATE AMINO TRANSFERASE 288 U/L (5-34); BILIRUBIN,TOTAL 0.8 MG/DL (0.1-1.0); BLOOD UREA NITROGEN 10 MG/DL (7-18); BUN/CREATININE RATIO 9; CALCIUM 8.1 MG/DL (8.5-10.1); CARBON DIOXIDE 22 MMOL/L (21-32); CHLORIDE 97 MMOL/L (98-107); CREATININE SERUM 1.09 MG/DL (0.60-1.30); GFR ESTIMATED > 60; GLUCOSE 154 MG/DL (70-105); POTASSIUM 4.1 MMOL/L (3.6-5.0); SODIUM 129 MMOL/L (135-145); TOTAL PROTEIN 5.3 G/DL (6.4-8.2)
[2017-03-09 08:00] VITALS: BP 110/59
--- NOTE | 2017-03-09 08:33 | Cardiology Progress Note ---
Subjective Subjective/Events-last exam Patient in bed, complaining of left leg pain, denies any CP or dyspnea. Review of Systems General: No Night Sweats, No Fatigue, No Malaise HEENT: No Visual Changes, No Dysphasia, No Sore Throat Pulmonary: No Dyspnea, No Cough Cardiovascular: No: Chest Pain, Orthopnea, Palpitations Gastrointestinal: No: Abdominal Pain, Nausea, Vomiting Genitourinary: No Dysuria, No Frequency Musculoskeletal: leg pain (left hip/leg), No: back pain, neck pain Neurological: Weakness, No: Change in speech, Confusion, Numbness Objective-Cardiology Exam Last Set of Vital Signs Vital Signs 03/09/17 04:00 Temp 97.5 Pulse 92 Resp 20 B/P (MAP) 100/62 Pulse Ox 96 O2 Delivery Nasal Cannula O2 Flow Rate 2.00 Capillary Refill : Less Than 3 SecondsLess Than 3 Seconds I&O Intake and Output 03/09/17 00:00 Intake Total 520 ml Output Total 2370 ml Balance -1850 ml Intake Oral 420 ml IV Total 100 ml Output Urine Total 1470 ml Estimated Blood Loss 600 ml Other 300 ml General: Alert, Oriented X3, Cooperative HEENT: Atraumatic, PERRLA Neck: Supple, No JVD, No Thyromegaly Lungs: Clear to Auscultation, Normal Air Movement Heart: Regular Rate, Normal S1, Normal S2, No Murmurs Abdomen: Normal Bowel Sounds, Soft, No Tenderness, No Hepatosplenomegaly, No Masses Extremities: No Clubbing, No Cyanosis, No Edema, Normal Pulses, No Tenderness/ Swelling Skin: No Rashes, No Breakdown, No Significant Lesion Neuro: Normal Gait, Normal Speech, Strength at 5/5 X4 Ext, Normal Tone, Sensation Intact Psych/Mental Status: Mental Status NL, Mood NL Results Lab Laboratory Tests 03/09/17 05:30 A/P-Cardiology Admission Diagnosis coronary artery disease Hypertension Hyperlipidemia Femur fracture Assessment/Plan Coronary artery disease, history of CABG, multiple interventions, patient is reporting having a total of 16 stents in the past, no chest pain was reported at this time,follows with Dr. Oconnor. I will try to obtain a copy for further review. Hypertension, controlled. Continue to monitor BP/HR Hyperlipidemia-continue to monitor. Left femur fracture, managed by Dr. Aleman Seizure disorder. Maintained on Dilantin. Clinical Quality Measures DVT/VTE Risk/Contraindication: Risk Factor Score Per Nursin RFS Level Per Nursing on Admit: 4+=Very High JATIN MARTÍNEZ March 09, 2017 08:33
--- NOTE | 2017-03-09 09:18 | Physical Therapy Evaluation ---
PT Evaluation-General Medical Diagnosis Admission Date Mar 07, 2017 at 21:00 Medical Diagnosis: L intertrochanteric fx Onset Date: April 06, 2017 Therapy Diagnosis Therapy Diagnosis: weakness; abn gait Height/Weight Height (Feet): 5 Height (Inches): 6.00 Weight (Pounds): 200 Weight (Ounces): 0.0 Precautions Precautions/Isolations: Fall Prevention, Standard Precautions Weight Bear Status Weight Bearing Restriction: Weight Bearing/Tolerated Location Restriction: L LE Referral Physician: Nils Jauregui Reason for Referral: Evaluation/Treatment Medical History Pertinent Medical History: CABG, DM, GERD Additional Medical History anxiety, bipolar Current History Had a seizure as he was standing up; fell and sustained above noted fracture Reviewed History: Yes Social History Home: Single Level Current Living Status: Spouse Entry Into Home: Ramp Prior/Core FIM Prior Level of Function Functional [place] Measure 0=Not Assessed/NA 4=Minimal Assistance 1=Total Assistance 5=Supervision or Setup 2=Maximal Assistance 6=Modified [place] 3=Moderate Assistance 7=Complete [place] Bed Mobility: 7 Transfers (B,C,W/C) (FIM): 7 Gait: 7 Pt is indep at [facility]. Still drives PT Evaluation-Current Subjective Agreeable to get out of bed. Pain Numeric Pain Scale: 9 Location: Left Location Body Site: Hip Pain Description: Ache, Dull Pt/Family Goals "I don't want to go to a 'home'". Objective Patient Orientation: Person, Place, Time, Situation Problem Solving: Fair Attachments: Oxygen (in situ post treatment) ROM/Strength ROM Lower Extremities WFL Strenght Lower Extremities Right LE grossly 5/5; L LE grossly 3/5 and primarily limited by pain. Integumentary/Posture Integumentary intact Bowel Incontinence: No Bladder Incontinence: No Posture normal and symmetrical Neuromuscular (Tone, Coordination, Reflexes) WFL Sensory Vision: Functional Hearing: Impaired ([place]AND) Hand Dominance: Right Sensation Right Lower Extremit: Intact Sensation Left Lower Extremity: Intact Transfers Functional [place] Measure 0=Not Assessed/NA 4=Minimal Assistance 1=Total Assistance 5=Supervision or Setup 2=Maximal Assistance 6=Modified [place] 3=Moderate Assistance 7=Complete [place] Transfers (B, C, W/C) (FIM): 3 Rollin Supine to/from Sit: 3 Sit to/from Stand: 4 Pt took 4-5 steps with FWW to transfer bed to chair; controlled descent with min assit. Gait Mode of Locomotion: Walk Anticipated Mode of Locomotion: Walk Gait Assistive Device: FWW Balance Sitting Static: Good Sitting Dynamic: Good Standing Static: Fair Standing Dynamic: Fair Treatment Sat EOB and worked on deep breathing activity and upright posture; transfer bed to chair with min assist. Pt up in chair post treatment to order breakfast. Assessment/Needs Post fall with sustained fracture that has been repaired. He will benefit from skilleed PT intervention to work on functional transfers and gait progression to allow him to return home as before. Co morbidities that may impact treatment: seizures, anxiety, CABG; Affected body systems: pain, LE weakness; impaired functional transfers/gait; presents as a changing characteristic due to recent surgery and fracture. Eval of moderate complexity. Rehab Potential: Good PT Fdc Goals Fdc Goals PT Fdc Goals Time Frame: March 12, 2017 Transfers (B,C,W/C) (FIM): 4 Gait (FIM): 2 Gait Assistive Device: FWW PT Plan Problem List Problem List: Activity Tolerance, Functional Strength, Safety, Balance, Gait, Transfer, Bed Mobility Treatment/Plan Treatment Plan: Continue Plan of Care Treatment Plan: Bed Mobility, Education, Functional Activity Daniel, Functional Strength, Gait, Safety, Therapeutic Exercise, Transfers Treatment Duration: March 12, 2017 # of days/week 5-6 Visits Per Week: 11 Pt/Family Agrees w/Plan: Yes Safety Risks/Education Patient Education: Transfer Techniques, Reviewed Precautions, Safety Issues Teaching Recipient: Patient Teaching Methods: Demonstration, Discussion Response to Teaching: Reinforcement Needed Time/GCodes Time In: 840 Time Out: 907 Total Billed Treatment Time: 27 Total Billed Treatment visit EVM 15 FA 12 KARAN GAYLE PT March 09, 2017 09:18
[2017-03-09] MEDS: TIMOLOL MALEATE 0.5% 5 ML (TIMOPTIC) BTL OU SCH ×2 (09:22→20:46)
[2017-03-09] MEDS: PHENYTOIN 100 MG (DILANTIN) CAP PO SCH ×2 (09:22→20:44)
[2017-03-09] MEDS: CLOPIDOGREL 75 MG (PLAVIX) TABLET PO SCH (09:23)
[2017-03-09] MEDS: PIOGLITAZONE 30MG (ACTOS) TAB PO SCH (09:23)
[2017-03-09] MEDS: ASPIRIN E.C. 81 MG (ECOTRIN) TAB PO SCH (09:23)
[2017-03-09] MEDS: LORazepam 1 MG (ATIVAN) TAB PO SCH ×2 (09:23→20:44)
[2017-03-09] MEDS: IBUPROFEN TABLET 200 MG TAB PO SCH (09:23)
[2017-03-09] MEDS: FLUoxetine HCL 20 MG (PROzac) CAP PO SCH (09:23)
[2017-03-09] MEDS ORDERED: LACTULOSE SYRUP 10GM/15ML (ENULOSE) 30ML UDC PO PRN (10:00)
[2017-03-09] MEDS ORDERED: RT-ALBUTEROL/IPRATROPIUM 3 ML (DUONEB) VIAL INH SCH (10:00)
--- NOTE | 2017-03-09 10:05 | Consultation-Hospitalist ---
HPI History of Present Illness: HPI/Chief Complaint CC: Medical management for s/p hip fracture repair POD # 1 HPI: This is a 66-year-old white male patient of Dr. Murdock of [place] that suffered a seizure which she has chronic epilepsy and resulted in a fall and resultant hip fracture that was repaired in an uncomplicated manner yesterday. He is doing well has some very mild postop anemia but denied any type of seizure activity and has yet to urinate since the Ulloa catheter has just been discontinued. Overall his pain is moderate to severe in nature I did patient financial counselor him on smoking cessation because he continues to smoke even though he has had bypass surgery in 16 stents placed. At this current time patient is wheezing on exam I do ordered nebulizer treatments and I review all of his home medication labs and vital signs. He has not had a bowel movement so I have started a bowel movement regimen. Source: patient Exam Limitations: no limitations Date Seen 03/09/17 Attending Physician Shahram Aleman Robert R MD Referring Physician Date of Admission Mar 07, 2017 at 21:00 Home Medications & Allergies Home Medications Reviewed patient Home Medication Reconciliation Form Allergies Allergies Coded Allergies codeine (Unverified Allergy, Unknown, 03/07/17) diazepam (Unverified Allergy, Unknown, 03/07/17) doxycycline (Unverified Allergy, Unknown, RASH, 03/07/17) phenobarbital (Unverified Allergy, Unknown, 03/07/17) RELAXES ME TOO MUCH piperacillin (Unverified Allergy, Unknown, RASH, PT HAS RECEIVED CEFAZOLIN IN THE PAST W/O ISSUE, 03/08/17) terazosin (Unverified Allergy, Unknown, 03/07/17) CHEST PAIN Past Qerrgms-Kruipj-Vhkdjz Hx Patient Social History Marrital Status: Employed/Student: retired Alcohol Use: Denies Use Recreational Drug Use: No Smoking Status: Current Everyday Smoker (1 PPD) Type Used: Cigarettes 2nd Hand Smoke Exposure: Yes Physical Abuse Screen: No Sexual Abuse: No Recent Foreign Travel: No Contact w/other who traveled: No Recent Hopitalizations: No Recent Infectious Disease Expo: No Immunizations Up To Date Date of Pneumonia Vaccine: Nov 08, 2016 Date of Influenza Vaccine: Aug 08, 2012 Seasonal Allergies Seasonal Allergies: No Surgeries HX Surgeries: Yes Surgeries: Appendectomy, Gallbladder, Orthopedic, Penile Implant, Renal, Transurethral Resection Respiratory Hx Respiratory Disorders: Yes Respiratory Disorders: COPD Cardiovascular Hx Cardiovascular Disorders: Yes (CABG IN 1999; 16 CARDIAC STENTS) Cardiac Disorders: Coronary Artery Disease, High Cholesterol, Hypertension Neurological Hx Neurological Disorders: Yes Neurological Disorders: Headaches /Migraines, Seizure Disorder Reproductive System Hx Reproductive Disorders: Yes (ED--PENILE IMPLANT) Sexually Transmitted Disease: No HIV/AIDS: No Genitourinary Hx Genitourinary Disorders: Yes (ED; URINARY FREQUENCY) Genitourinary Disorders: Benign Prostatic Hyperpl, Kidney Stones Gastrointestinal Hx Gastrointestinal Disorders: Yes Gastrointestinal Disorders: Gastroesophageal Reflux, Ulcer Musculoskeletal Hx Musculoskeletal Disorders: Yes (MUSCLE WEAKNESS) Musculoskeletal Disorders: Arthritis Endocrine Hx Endocrine Disorders: Yes Endocrine Disorders: Diabetes, Non-Insulin dep HEENT HX ENT Disorders: Yes (Revere Palsy) HEENT Disorders: Cataract, Glaucoma Loss of Vision: Denies Hearing Impairment: Hard of Hearing Cancer Hx Cancer: No Psychosocial Hx Psychiatric Problems: Yes Behavioral Health Disorders: Anxiety, Bipolar, Depression Integumentary HX Skin/Integumentary Disorder: No Blood Transfusions Hx Blood Disorders: Yes Adverse Reaction to a Blood Tr: No Review of Systems Constitutional: see HPI, weakness EENTM: no symptoms reported Respiratory: short of breath, wheezing Cardiovascular: no symptoms reported Gastrointestinal: no symptoms reported Genitourinary: decreased output Musculoskeletal: joint pain Skin: no symptoms reported Psychiatric/Neurological: No Symptoms Reported All Other Systems Reviewed Negative Unless Noted: Yes Physical Exam Physical Exam Vital Signs Vital Sign - Last 12Hours 03/07/17 20:14 Temp 98.2 Pulse 78 Resp 20 B/P (MAP) 150/83 Pulse Ox 96 O2 Delivery Nasal Cannula O2 Flow Rate 2.00 Capillary Refill : Less Than 3 SecondsLess Than 3 Seconds General Appearance: No Apparent Distress, WD/WN, Chronically ill, Obese Eyes: Bilateral Eye Normal Inspection, Bilateral Eye PERRL HEENT: PERRL/EOMI, Normal ENT Inspection, Pharynx Normal Neck: Full Range of Motion, Normal Inspection, Non Tender, Supple, Carotid Bruit Respiratory: Chest Non Tender, No Accessory Muscle Use, No Respiratory Distress , Decreased Breath Sounds, Wheezing Cardiovascular: Regular Rate, Rhythm, No Edema, No Gallop, No JVD, No Murmur, Normal Peripheral Pulses Gastrointestinal: Normal Bowel Sounds, No Organomegaly, No Pulsatile Mass, Non Tender, Soft Back: Normal Inspection, No CVA Tenderness, No Vertebral Tenderness Extremity: Normal Capillary Refill, Normal Inspection, Normal Range of Motion, Non Tender, No Calf Tenderness, No Pedal Edema Neurologic/Psychiatric: Alert, Oriented x3, No Motor/Sensory Deficits, Normal Mood/Affect Skin: Normal Color, Warm/Dry Lymphatic: No Adenopathy Results Results/Procedures Lab Laboratory Tests 03/07/17 20:05 03/08/17 05:20 03/09/17 05:30 Assessment/Plan Admission Diagnosis Assessment: Hip fracture following fall after a seizure Severe coronary artery disease previous bypass surgery 16 stents placed in the past Current smoker COPD Acute wheezing on exam today ordered nebulizer treatments Mild postop anemia History of BPH just discontinued catheter so will monitor for urinary retention Assessment and Plan Plan: Monitor labs Smoking cessation needed nebulizers Monitor blood pressure Appreciate cardiology evaluation due to the extensiveness of the coronary artery disease Clinical Quality Measures DVT/VTE Risk/Contraindication: Risk Factor Score Per Nursin RFS Level Per Nursing on Admit: 4+=Very High CARLOS ESCOTO DO March 09, 2017 10:05
[2017-03-09] MEDS: SENNA W/DOCUSATE (SENOKOT S) TABLET PO SCH ×2 (10:31→20:44)
[2017-03-09] MEDS: oxyCODONE/APAP 7.5-325 MG (PERCOCET 7.5) TABLET PO PRN ×3 (10:47→19:26)
[2017-03-09] MEDS: RT-ALBUTEROL/IPRATROPIUM 3 ML (DUONEB) VIAL INH SCH ×3 (10:47→18:58)
[2017-03-09] MEDS: RT-FLUTICASONE 110 MCG (FLOVENT) PER PUFF INH SCH ×2 (10:49→19:05)
--- NOTE | 2017-03-09 11:20 | Occupational Therapy Eval ---
OT Evaluation-General/PLF Medical Diagnosis Admission Date Mar 07, 2017 at 21:00 Medical Diagnosis: L intertrochanteric fx Onset Date: April 06, 2017 Therapy Diagnosis Therapy Diagnosis: Weakness, decreased ADL skills Height/Weight Height (Feet): 5 Height (Inches): 6.00 Weight (Pounds): 200 Weight (Ounces): 0.0 Precautions Precautions/Isolations: Fall Prevention, Standard Precautions Safety Interventions: None Weight Bear Status Weight Bearing Restriction: Weight Bearing/Tolerated Location Restriction: [place] MANDEL Referral Physician: Nils Jauregui Referral Reason: Activity Tolerance, Self Care, Evaluation/Treatment, Strengthening/ROM Medical History Pertinent Medical History: Arthritis, CABG, DM, GERD, HTN Additional Medical History Bipolar, seizure disorder Current History Pt. fell at home getting out of chair. Friend was there at the time. Reviewed History: Yes Social History Home: Single Level Entry Into Home: Ramp ADL-Prior Level of Function ADL PLOF Comments Pt. states that he receives 5 hours of skilled caregiving per day, 7 days per week. Friend in room and confirms this. He states that they do his laundry, clean his house, do his shopping, and help him bathe and dress. DME/Equipment: Bath Chair, Bedside Commode, Tub/Shower DME/Equipment Comments Pt. has a walker and wheelchair. Drive Self: Yes (Drives "a little." But states that he hasn't since his "medication is messed up.") OT Current Status Subjective Pt. reports 10/10 pain while up in chair, in left hip. Nursing notified. Appearance Pt. is up in chair. Friend is in the room. Pt. keeps his eyes closed during treatment. Continually states, "it hurts!" Agrees to get back into bed. Mental Status/Objective Patient Orientation: Unable to Assess Current Hand Dominance: Right Upper Extremity ROM Pt. demonstrates approximately 80 degrees bilateral shoulder flexion. States that he has arthritis. Upper Extremity Coordination Unable to participate due to pain in coordination testing. Will determine needs at later time. Upper Extremity Strength Pt. demonstrates approximately 2+/5 proximal strength, and 3/5 distally. ADL-Treatment Functional [place] Measure 0=Not Assessed/NA 4=Minimal Assistance 1=Total Assistance 5=Supervision or Setup 2=Maximal Assistance 6=Modified [place] 3=Moderate Assistance 7=Complete IndependenceIRFPAI Quality Coding Scale 6 Independent with activity with or without an assistive device 5 Patient requires set up or clean up by helper. Patient completes activity by themselves 4 Supervision or touching assist (CGA). [place] provide cues , steadying assist 3 The helper provides less than half the effort to complete the activity 2 The helper provides more than half the effort to complete the activity 1 Dependent. The helper does all the effort to complete an activity 7 Patient refused to complete or attempt activity 9 The patient did not perform the activity before the current illness or injury 88 Not attempted due to Medical conditions or safety concerns Lower Body Dressing (FIM): 2 (Pt. is unable to reach bilateral feet to doff or don socks. Is able to hold feet up though for OT to do this.) Transfers (B, C, W/C) (FIM): 3 (Pt. is able to stand up out of chair with min assist needed. Requires increased time and cues, as he is scared to stand. Is able to start taking steps but states that he is hurting too much, and bends knees. OT gets him to bed. Required mod assist to lay back down.) Other Treatments Pt. reporting significant pain during treatment this date. Has difficulty attending to tasks, as he states that he is in so much pain. All needs are met back in bed. Education OT Patient Education: Correct positioning, Modified ADL techniques, Progress toward Goal/Update tx plan, Purpose of tx/functional activities, Reviewed precautions, Rehab process, Transfer techniques Teaching Recipient: Patient, Friend Teaching Methods: Demonstration, Discussion Response to Teaching: Verbalize Understanding, Return Demonstration OT Short Term Goals Short Term Goals Time Frame: March 16, 2017 Eating(FIM): 5 Grooming(FIM): 5 Bathing(FIM): 4 Upper Body Dressing(FIM): 4 Lower Body Dressing(FIM): 4 Toileting(FIM): 4 Transfers (B,C,W/C) (FIM): 5 Toilet/Commode Transfer(FIM): 5 Shower Transfer(FIM): 4 Additional Short Term Goals: 1-Demonstrate ADL Tasks, 2-Verbalize Understanding , 3-ImproveStrength/Daniel 1=Demonstrate adherence to instructed precautions during ADL tasks. 2=Patient will verbalize/demonstrate understanding of assistive devices/ modifications for ADL. 3=Patient will improve strength/tolerance for activity to enable patient to perform ADL's. OT Assisted Goals Assisted Goals Time Frame: March 23, 2017 Eating (FIM): 6 Grooming(FIM): 6 Bathing(FIM): 5 Upper Body Dressing(FIM): 5 Lower Body Dressing(FIM): 5 Toileting(FIM): 5 Transfers (B,C,W/C) (FIM): 6 Toilet/Commode Transfer(FIM): 6 Shower Transfer(FIM): 5 Additional Goals: 1-Demonstrate ADL Tasks, 2-Verbalize Understanding, 3- ImproveStrength/Daniel 1=Demonstrate adherence to instructed precautions during ADL tasks. 2=Patient will verbalize/demonstrate understanding of assistive devices/ modifications for ADL. 3=Patient will improve strength/tolerance for activity to enable patient to perform ADL's. OT Education/Plan Problem List/Assessment Assessment: Decreased Activ Tolerance, Decreased UE Strength, Dependent Transfers, Impaired Bed Mobility, Impaired Funct Balance, Impaired I ADL's, Impaired Self-Care Skills, Restricted Funct UE ROM Discharge Recommendations Plan/Recommendations: Continue POC Therapy D/C Recommendations: Acute Rehab Equpiment Recommendations-D/C: Hip Kit Barriers to Progress Pain management Target Placement Pt. would benefit from acute rehab placement. Treatment Plan/Plan of Care Treatment,Training & Education: Yes Patient would benefit from OT for education, treatment and training to promote independence in ADL's, mobility, safety and/or upper extremity function for ADL' s. Plan of Care: ADL Retraining, Caregiver Training, Functional Mobility, UE Funct Exercise/Act Treatment Duration: March 23, 2017 Visits Per Week: 5-6 Agreement: Yes Rehab Potential: Fair Time/GCodes Start Time: 10:00 Stop Time: 10:25 Total Time Billed (hr/min): 25 Billed Treatment Time 1, EVhigh x 10minutes, FA x 15minutes TONIA VERA OT March 09, 2017 11:20
[2017-03-09] MEDS: inSUlin ASPART (NovoLOG) 1 UNIT/0.01 ML (CHARGE PER UNIT) SC SCH ×3 (11:29→20:45)
--- NOTE | 2017-03-09 12:00 | Anesthesia-General Post-Op ---
General Patient Condition Mental Status/LOC: Same as Preop Cardiovascular: Satisfactory Nausea/Vomiting: Absent Respiratory: Satisfactory Pain: Controlled Complications: Absent Post Op Complications Complications None Follow Up Care/Instructions Patient Instructions None needed. Anesthesia/Patient Condition Patient Condition Patient is doing well, no complaints, stable vital signs, no apparent adverse anesthesia problems. No complications reported per nursing. ANGELINE SIMPSON CRNA March 09, 2017 12:00
[2017-03-09] MEDS: RAMIPRIL 5 MG (ALTACE) CAP PO SCH (12:36)
--- NOTE | 2017-03-09 13:35 | Physical Therapy Daily Note ---
PT Daily Note-Current Subjective Patient agrees to PT. Pain Numeric Pain Scale: 5-Moderate Pain Location: Left Location Body Site: Hip Pain Description: Acute Mental Status Patient Orientation: Person, Time, Situation Attachments: Oxygen Transfers Functional [place] Measure 0=Not Assessed/NA 4=Minimal Assistance 1=Total Assistance 5=Supervision or Setup 2=Maximal Assistance 6=Modified [place] 3=Moderate Assistance 7=Complete IndependenceIRFPAI Quality Coding Scale 6 Independent with activity with or without an assistive device 5 Patient requires set up or clean up by helper. Patient completes activity by themselves 4 Supervision or touching assist (CGA). [place] provide cues , steadying assist 3 The helper provides less than half the effort to complete the activity 2 The helper provides more than half the effort to complete the activity 1 Dependent. The helper does all the effort to complete an activity 7 Patient refused to complete or attempt activity 9 The patient did not perform the activity before the current illness or injury 88 Not attempted due to Medical conditions or safety concerns Transfers (B, C, W/C) (FIM): 4 Scootin Rollin Supine to/from Sit: 4 Sit to/from Stand: 5 SBA with sit to stand transfer to FWW Weight Bearing Weight Bearing Restriction: Weight Bearing/Tolerated Location Restriction: L LE Gait Training Gait (FIM): 1 Distance (FIM): 1=up to 49 ft Distance: 5' Gait Level of Assist: 4 Gait Persons Needed: 1 Gait Assistive Device: FWW antalgic Exercises Supine Ex: Ankle pumps, Heel Slides, Straight leg raise Supine Reps: 10 Seated Therapy Exercises: Long arc quads Seated Reps: 10 Assessment Patient progressing with treatment plan. PT to increase activity as tolerated by patient. PT Short Term Goals Short Term Goals Transfers (B,C,W/C) (FIM): 5 PT Lehr Attendant Goals Lehr Attendant Goals PT Senior Living Goals Time Frame: March 12, 2017 Transfers (B,C,W/C) (FIM): 4 Gait (FIM): 2 Gait Assistive Device: FWW PT Plan Treatment/Plan Treatment Plan: Continue Plan of Care Treatment Plan: Bed Mobility, Education, Functional Activity Daniel, Functional Strength, Gait, Safety, Therapeutic Exercise, Transfers Treatment Duration: March 12, 2017 Visits Per Week: 11 Time/GCodes Time In: 1300 Time Out: 1323 Total Billed Treatment Time: 23 Total Billed Treatment 1 visit FA 15 min EX 8 min PAT,MINERVA PT March 09, 2017 13:35
[2017-03-09 15:30] VITALS: BP 101/55
--- NOTE | 2017-03-09 15:36 | Cardiology Progress Note ---
Subjective Subjective/Events-last exam patient is in bed, feeling better, still having pain in his hip. Review of Systems General: No Chills, No Night Sweats, No Fatigue, No Malaise, No Appetite, No Other HEENT: No Head Aches, No Visual Changes, No Eye Pain, No Ear Pain, No Dysphasia , No Sinus Congestion, No Post Nasal Drip, No Sore Throat, No Other Pulmonary: No Dyspnea, No Cough, No Pleuritic Chest Pain, No Other Cardiovascular: No: Chest Pain, Edema, Lt Headedness, Orthopnea, Other, Palpitations, Paroxysmal Noc. Dyspnea Objective-Cardiology Exam Last Set of Vital Signs Vital Signs 03/09/17 03/09/17 08:00 14:52 Temp 97.6 Pulse 99 Resp 20 B/P (MAP) 110/59 Pulse Ox 96 O2 Delivery Nasal Cannula O2 Flow Rate 3.00 Capillary Refill : Less Than 3 SecondsLess Than 3 Seconds I&O Intake and Output 03/09/17 00:00 Intake Total 520 ml Output Total 2370 ml Balance -1850 ml Intake Oral 420 ml IV Total 100 ml Output Urine Total 1470 ml Estimated Blood Loss 600 ml Other 300 ml General: Alert, Oriented X3, Cooperative HEENT: Atraumatic, PERRLA Neck: Supple, No JVD, No Thyromegaly Lungs: Clear to Auscultation, Normal Air Movement Heart: Regular Rate, Normal S1, Normal S2, No Murmurs Abdomen: Normal Bowel Sounds, Soft, No Tenderness, No Hepatosplenomegaly, No Masses Extremities: No Clubbing, No Cyanosis, No Edema, Normal Pulses, No Tenderness/ Swelling Skin: No Rashes, No Breakdown, No Significant Lesion Neuro: Normal Gait, Normal Speech, Strength at 5/5 X4 Ext, Normal Tone, Sensation Intact Psych/Mental Status: Mental Status NL, Mood NL Results Lab Laboratory Tests 03/09/17 05:30 A/P-Cardiology Admission Diagnosis coronary artery disease Hypertension Hyperlipidemia Femur fracture Assessment/Plan Left femur fracture, status post surgical repair surgery done on March 08, [address] Maloney, recovering slowly. Coronary artery disease, history of CABG, multiple interventions, patient is reporting having a total of 16 stents in the past, no chest pain was reported at this time,follows with Dr. Oconnor. I still did not receive the records. Hypertension, controlled. Continue to monitor BP/HR Hyperlipidemia-continue to monitor. Seizure disorder. Maintained on Dilantin. Clinical Quality Measures DVT/VTE Risk/Contraindication: Risk Factor Score Per Nursin RFS Level Per Nursing on Admit: 4+=Very High MANE VARGAS MD March 09, 2017 15:36
[2017-03-09] MEDS: ALFUZOSIN HCL 10 MG TAB (UROXATRAL) PO SCH (17:19)
[2017-03-09] MEDS: TEMAZEPAM 15 MG (RESTORIL) CAP PO SCH (20:44)
[2017-03-09] MEDS: OLANZapine 2.5 MG (ZyPREXA) TAB PO SCH (20:44)
[2017-03-09] MEDS: SIMvastatin 40 MG (ZOCOR) TAB PO SCH (20:44)
[2017-03-09] MEDS: GABAPENTIN 100 MG (NEURONTIN) CAP PO SCH (20:44)
[2017-03-09] MEDS: LORATADINE (CLARITIN) 10 MG TAB PO SCH (20:45)
[2017-03-09] MEDS: eZETimibe 10 MG (ZETIA) TABLET PO SCH (20:45)
[2017-03-10] VITALS: BP 100/58
[2017-03-10] MEDS: oxyCODONE/APAP 7.5-325 MG (PERCOCET 7.5) TABLET PO PRN ×5 (01:32→19:59)
[2017-03-10] MEDS: fentaNYL INJECTION 100 MCG/2 ML AMP IVP PRN (04:25)
[2017-03-10] MEDS: inSUlin ASPART (NovoLOG) 1 UNIT/0.01 ML (CHARGE PER UNIT) SC SCH ×4 (05:55→21:34)
[2017-03-10] MEDS: ISOSORBIDE MONONITRATE 60 MG (IMDUR) TAB PO SCH ×2 (06:02→17:10)
[2017-03-10] MEDS: PANTOPRAZOLE 40 MG (PROTONIX) TAB PO SCH (06:03)
[2017-03-10] MEDS: BETHANECHOL 25 MG (URECHOLINE) TAB PO SCH ×4 (06:03→21:33)
[2017-03-10] MEDS: CATHETER FLUSH 10 ML SYR IV SCH ×3 (06:25→21:34)
[2017-03-10 06:43] LABS: MEAN PLATELET VOLUME 8.2 FL (7.4-10.4); RED BLOOD COUNT 3.06 10^6/uL (4.35-5.85); RED CELL DISTRIBUTION WIDTH 13.4 % (10.0-14.5); WHITE BLOOD COUNT 8.4 10^3/uL (4.3-11.0)
[2017-03-10 07:02] LABS: ALANINE AMINOTRANSFERASE 109 U/L (0-55); ALBUMIN 3.5 G/DL (3.2-4.5); ANION GAP 11 MMOL/L (5-14); ASPARTATE AMINO TRANSFERASE 76 U/L (5-34); BILIRUBIN,TOTAL 0.8 MG/DL (0.1-1.0); BLOOD UREA NITROGEN 13 MG/DL (7-18); BUN/CREATININE RATIO 15; CALCIUM 8.5 MG/DL (8.5-10.1); CARBON DIOXIDE 22 MMOL/L (21-32); CHLORIDE 96 MMOL/L (98-107); CREATININE SERUM 0.88 MG/DL (0.60-1.30); GFR ESTIMATED > 60; GLUCOSE 180 MG/DL (70-105); POTASSIUM 3.9 MMOL/L (3.6-5.0); SODIUM 129 MMOL/L (135-145); TOTAL PROTEIN 5.7 G/DL (6.4-8.2)
[2017-03-10] MEDS: RT-ALBUTEROL/IPRATROPIUM 3 ML (DUONEB) VIAL INH SCH ×4 (07:49→18:32)
[2017-03-10] MEDS: RT-FLUTICASONE 110 MCG (FLOVENT) PER PUFF INH SCH ×2 (07:49→18:32)
[2017-03-10] MEDS ORDERED: LIDOCAINE UROJET 2% GEL 10 ML PKG ONE (08:07)
[2017-03-10 08:28] VITALS: BP 115/44
--- NOTE | 2017-03-10 08:48 | Progress Note-Post Operative ---
Post-Operative Progess Note Surgeon (s)/Career Technical Supervisor (s) Surgeon ALBERT KNOTT MD Career Technical Supervisor: n/a Pre-Operative Diagnosis URINE RTENTION Post-Operative Diagnosis SAME Post-Op Procedure Note Date of Procedure: March 10, 2017 Name of Procedure Performed: CYSTOSCOPY Description of the Procedure: PER DICTATION Findings of the Procedure SAME Anesthesia Type LOCAL Estimated blood loss (mL): N/A Specimen(s) collected/removed N/A ALBERT KNOTT MD March 10, 2017 8:48 am
[2017-03-10] MEDS ORDERED: BISACODYL 10 MG SUPP (DULCOLAX) PR NR (09:45)
[2017-03-10] MEDS: ASPIRIN E.C. 81 MG (ECOTRIN) TAB PO SCH (09:46)
[2017-03-10] MEDS: IBUPROFEN TABLET 200 MG TAB PO SCH (09:46)
[2017-03-10] MEDS: PIOGLITAZONE 30MG (ACTOS) TAB PO SCH (09:47)
[2017-03-10] MEDS: FLUoxetine HCL 20 MG (PROzac) CAP PO SCH (09:47)
[2017-03-10] MEDS: LORazepam 1 MG (ATIVAN) TAB PO SCH ×2 (09:47→21:34)
[2017-03-10] MEDS: SENNA W/DOCUSATE (SENOKOT S) TABLET PO SCH ×2 (09:47→21:32)
[2017-03-10] MEDS: CLOPIDOGREL 75 MG (PLAVIX) TABLET PO SCH (09:47)
[2017-03-10] MEDS: TIMOLOL MALEATE 0.5% 5 ML (TIMOPTIC) BTL OU SCH ×2 (09:47→21:34)
[2017-03-10] MEDS: PHENYTOIN 100 MG (DILANTIN) CAP PO SCH ×2 (09:47→21:32)
--- NOTE | 2017-03-10 09:52 | OPERATIVE REPORT ---
DATE OF SERVICE: 03/10/2017 PREOPERATIVE DIAGNOSIS: Urinary retention. POSTOPERATIVE DIAGNOSIS: Urinary retention. OPERATION PERFORMED: Cystoscopy. SURGEON: Dr. Jamey Knott ANESTHESIA: Local. COMPLICATIONS: None. PROCEDURE: With the patient supine in his bed, the genitalia were prepped and draped in the usual sterile fashion. The urethra was infiltrated with lidocaine jelly. Penile clamp was applied; this was then removed and a flexible cystoscope was introduced under vision. Anterior urethra was normal. The prostate was well resected. The bladder neck was opened. The bladder revealed some trabeculations, no foreign body, bladder tumor or stone visualized. Ureteric orifices normal in shape, size, configuration with clear efflux. Cystoscopy was confirmed in antegrade fashion and the cystoscope was removed. The patient tolerated the procedure and anesthesia. He remained in his bed in stable condition. Physical examination revealed a circumcised phallus with adequate meatus and penile implant in good place, testes down the scrotum. Rectal exam hardly any prostate felt. PLAN: Since he is tolerating the Urecholine for quite a while we will increase it to 50 mg q.i.d. We will keep him on the Flomax. If he is unable to void, we will reinsert the catheter, leave it for 24 hours or so and try voiding again. Job ID: [id number] DocumentID: [id number] Dictated Date: 03/10/2017 08:48:20 Manager Business Continuity Date: 03/10/2017 09:52:12 Dictated By: JAMEY KNOTT MD
--- NOTE | 2017-03-10 10:14 | CONSULTATION REPORT ---
DATE OF SERVICE: 03/10/2017 ATTENDING PHYSICIAN: Dr. Hartman and Dr. Aleman. SUMMARY: The patient is a 66-year-old white man known to me from before who underwent left hip surgery for fracture and then had urinary retention postoperatively. After removing the Ulloa catheter he had to be catheterized twice as he was not able to void. The patient denies similar episodes at home; however, he is on Flomax and Bethanechol 25 mg 4 times a day. He tolerated it well. He previously had a TURP. He could not remember if it was me or Dr. Gastelum who did that. PHYSICAL EXAMINATION: Deferred for the cystoscopy. IMPRESSION: Urinary retention, obstruction versus neurogenic versus both. PLAN: Flexible cystoscopy at bedside this morning and manage accordingly. Job ID: [id number] DocumentID: [id number] Dictated Date: 03/10/2017 08:15:35 Wool Carder Date: 03/10/2017 10:13:06 Dictated By: ALBERT KNOTT MD
--- NOTE | 2017-03-10 10:36 | Progress Note-Hospitalist ---
Progress Note HPI/CC on Admission CC: Medical management for s/p hip fracture repair POD # 1 HPI: This is a 66-year-old white male patient of Dr. Murdock of [place] that suffered a seizure which she has chronic epilepsy and resulted in a fall and resultant hip fracture that was repaired in an uncomplicated manner yesterday. He is doing well has some very mild postop anemia but denied any type of seizure activity and has yet to urinate since the Ulloa catheter has just been discontinued. Overall his pain is moderate to severe in nature I did cancer genetic counselor him on smoking cessation because he continues to smoke even though he has had bypass surgery in 16 stents placed. At this current time patient is wheezing on exam I do ordered nebulizer treatments and I review all of his home medication labs and vital signs. He has not had a bowel movement so I have started a bowel movement regimen. Progress Notes/Assess & Plan Date Seen 03/10/17 Admission Dx/Process Assessment: Hip fracture following fall after a seizure Severe coronary artery disease previous bypass surgery 16 stents placed in the past Current smoker COPD Acute wheezing on exam today ordered nebulizer treatments Mild postop anemia History of BPH just discontinued catheter so will monitor for urinary retention Diagonsis/Assessment & Plan Chart Review: Max fever of 99.5 BP stable at 115/44 I spoke to [facility] Dr. Couch yesterday in depth Pt is having urinary retention consulted so I consulted Dr. Pena WBC 8.4 Hgb 9.1 Na+ 129 on fluid restriction Glucose 180 Patient Interview: Pt admits to having some bladder issues and that Dr. Pena saw the pt. Physical exam stable. Lungs sound better today. Pt has been receiving breathing treatments. Pt has been flatulent but has not had any BMs Pt's is concerned about his fluid restriction. Dr. Escoto discussed that the pt is on fluid restriction because of his Na+ level No fever, vital signs stable, pleasant, chronically ill, appears older than stated age, at bedside Regular rate and rhythm, clear to auscultation bilaterally but diminished breath sounds in the bases no wheezing noted that is resolved No edema Laboratory Tests 03/10/17 06:10 Assessment: Hip fracture following fall after a seizure POD # 2 Severe coronary artery disease previous bypass surgery 16 stents placed in the past Cardiology following Current smoker COPD Acute wheezing on exam yesterday ordered nebulizer treatments which has improved lung exam Mild postop anemia History of BPH and now has urinary retention since DC cath so consulted Urology Post-op constipation 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 Escoto. CARLOS ESCOTO DO March 10, 2017 10:36
--- NOTE | 2017-03-10 10:57 | Occupational Ther Daily Note ---
OT Current Status-Daily Note Subjective Pt in bed, agrees to treatment. Pt reports pain in left LE. Mental Status/Objective Functional Baxter Measure 0=Not Assessed/NA 4=Minimal Assistance 1=Total Assistance 5=Supervision or Setup 2=Maximal Assistance 6=Modified Baxter 3=Moderate Assistance 7=Complete Baxter ADL-Treatment Pt supine to sit with assist for left LE. Pt moves slowly and requires increased time for mobility. Pt instructed in use of adaptive equipment for LE dressing. Pt donned socks with minimal assistance using sock aid. Doffed socks with verbal cues using dressing stick. Pt sit to stand with minimal assistance and cues for hand placement. Sidesteps to HOB with increased time, assist for walker use. Pt sit to supine with moderate assistance. Pt in bed with needs met after session, visitors present. OT Short Term Goals Short Term Goals Time Frame: March 16, 2017 Eating(FIM): 5 Grooming(FIM): 5 Bathing(FIM): 4 Upper Body Dressing(FIM): 4 Lower Body Dressing(FIM): 4 Toileting(FIM): 4 Transfers (B,C,W/C) (FIM): 5 Toilet/Commode Transfer(FIM): 5 Shower Transfer(FIM): 4 Additional Short Term Goals: 1-Demonstrate ADL Tasks, 2-Verbalize Understanding , 3-ImproveStrength/Daniel 1=Demonstrate adherence to instructed precautions during ADL tasks. 2=Patient will verbalize/demonstrate understanding of assistive devices/ modifications for ADL. 3=Patient will improve strength/tolerance for activity to enable patient to perform ADL's. OT Long-Term Goals Ventilating Engineer Goals Time Frame: March 23, 2017 Eating (FIM): 6 Grooming(FIM): 6 Bathing(FIM): 5 Upper Body Dressing(FIM): 5 Lower Body Dressing(FIM): 5 Toileting(FIM): 5 Transfers (B,C,W/C) (FIM): 6 Toilet/Commode Transfer(FIM): 6 Shower Transfer(FIM): 5 Additional Goals: 1-Demonstrate ADL Tasks, 2-Verbalize Understanding, 3- ImproveStrength/Daniel 1=Demonstrate adherence to instructed precautions during ADL tasks. 2=Patient will verbalize/demonstrate understanding of assistive devices/ modifications for ADL. 3=Patient will improve strength/tolerance for activity to enable patient to perform ADL's. OT Education/Plan Discharge Recommendations Plan/Recommendations: Continue POC Treatment Plan/Plan of Care Patient would benefit from OT for education, treatment and training to promote independence in ADL's, mobility, safety and/or upper extremity function for ADL' s. Plan of Care: ADL Retraining, Caregiver Training, Functional Mobility, UE Funct Exercise/Act Treatment Duration: March 23, 2017 Visits Per Week: 5-6 Agreement: Yes Rehab Potential: Fair Time/GCodes Start Time: 10:17 Stop Time: 10:37 Total Time Billed (hr/min): 20 Billed Treatment Time 1 visit, ADL(20minutes) LAINE JOHANSEN OT March 10, 2017 10:57
--- NOTE | 2017-03-10 11:11 | Cardiology Progress Note ---
Subjective Subjective/Events-last exam Patient in bed. No new complaints, continues to complain of left leg pain. Denies any CP or dyspnea. Review of Systems General: No Night Sweats, No Fatigue, No Malaise HEENT: No Visual Changes, No Dysphasia, No Sore Throat Pulmonary: No Dyspnea, No Cough, No Pleuritic Chest Pain Cardiovascular: No: Chest Pain, Edema, Palpitations, Paroxysmal Noc. Dyspnea Gastrointestinal: No: Abdominal Pain, Constipation, Diarrhea, Nausea, Vomiting Genitourinary: No Dysuria, No Frequency Musculoskeletal: leg pain (left leg), No: back pain, neck pain Neurological: No: Change in speech, Confusion, Numbness, Weakness Objective-Cardiology Exam Last Set of Vital Signs Vital Signs 03/10/17 03/10/17 08:28 10:51 Temp 99.1 Pulse 107 Resp 20 B/P (MAP) 115/44 Pulse Ox 95 O2 Delivery Nasal Cannula O2 Flow Rate 2.00 Capillary Refill : Less Than 3 SecondsLess Than 3 Seconds I&O Intake and Output 03/09/17 23:59 Intake Total 1200 ml Output Total 850 ml Balance 350 ml Intake Oral 1200 ml Output Urine Total 850 ml General: Alert, Oriented X3, Cooperative HEENT: Atraumatic, PERRLA Neck: Supple, No JVD, No Thyromegaly Lungs: Clear to Auscultation, Normal Air Movement Heart: Regular Rate, Normal S1, Normal S2, No Murmurs Abdomen: Normal Bowel Sounds, Soft, No Tenderness, No Hepatosplenomegaly, No Masses Extremities: No Clubbing, No Cyanosis, No Edema, Normal Pulses, No Tenderness/ Swelling Skin: No Rashes, No Breakdown, No Significant Lesion Neuro: Normal Gait, Normal Speech, Strength at 5/5 X4 Ext, Normal Tone, Sensation Intact Psych/Mental Status: Mental Status NL, Mood NL Results Lab Laboratory Tests 03/10/17 06:10 A/P-Cardiology Admission Diagnosis coronary artery disease Hypertension Hyperlipidemia Femur fracture Assessment/Plan Left femur fracture, status post surgical repair surgery done on March 08, [address] Maloney, recovering slowly. Coronary artery disease, history of CABG, multiple interventions, patient is reporting having a total of 16 stents in the past, no chest pain was reported at this time,follows with Dr. Oconnor. Will continue to monitor. Hypertension, controlled. Continue to monitor BP/HR Hyperlipidemia-continue to monitor. Seizure disorder. Maintained on Dilantin. Clinical Quality Measures DVT/VTE Risk/Contraindication: Risk Factor Score Per Nursin RFS Level Per Nursing on Admit: 4+=Very High JATIN MARTÍNEZ March 10, 2017 11:11
--- NOTE | 2017-03-10 11:43 | Physical Therapy Daily Note ---
PT Daily Note-Current Subjective Pt. in bed and states "you are the 3rd person here today to walk me and such". This LEARNING DESIGN SPECIALIST then confirmed that pt. had had OT only this morning. Pt. agrees then to PT RX and states that he just had a suppository and after on his feet becomes very anxious and says he needs to "poop" Pain Numeric Pain Scale: 9 (9.5 per pt.) Location: Left Location Body Site: Hip Pain Description: Throbbing Appearance groggy, poor control, thrashing about a little while sitting EOB, unsafe movements and attempts to stand without FWW etc. it was noted that dressing to left hip is saturated with blood. this was reported to nursing Mental Status Patient Orientation: Person Transfers Functional [place] Measure 0=Not Assessed/NA 4=Minimal Assistance 1=Total Assistance 5=Supervision or Setup 2=Maximal Assistance 6=Modified [place] 3=Moderate Assistance 7=Complete IndependenceIRFPAI Quality Coding Scale 6 Independent with activity with or without an assistive device 5 Patient requires set up or clean up by helper. Patient completes activity by themselves 4 Supervision or touching assist (CGA). [place] provide cues , steadying assist 3 The helper provides less than half the effort to complete the activity 2 The helper provides more than half the effort to complete the activity 1 Dependent. The helper does all the effort to complete an activity 7 Patient refused to complete or attempt activity 9 The patient did not perform the activity before the current illness or injury 88 Not attempted due to Medical conditions or safety concerns Transfers (B, C, W/C) (FIM): 2 Scootin Rollin Supine to/from Sit: 3 Sit to/from Stand: 2 Bed to/from Chair: 2 much difficulty maintaining sitting. Max assist 1-2 bed to BSC and BSC to bed. Pt. nearly collapsing a couple times when attempting to wt bear on LLE. Pt. with difficulty comprehending wt bearing onto UEs to lessen wt bearing on LLE Weight Bearing Weight Bearing Restriction: Weight Bearing/Tolerated Gait Training Gait (FIM): 1 Distance (FIM): 1=up to 49 ft (5ftx2) Gait Level of Assist: 2 Gait Persons Needed: 2 Gait Assistive Device: FWW see description above Exercises Supine Ex: Ankle pumps, Quad Set, Rolling, Glut sets, Heel Slides (ssist), Short Arc Quads (ssist), Scooting (ssist), Straight leg raise (ssist), Hip abd/ add (ssist) Treatments medium BM on BSC,max assist to clean etc Assessment Current Status: Fair Progress max assist for all mobility PT Short Term Goals Short Term Goals Transfers (B,C,W/C) (FIM): 5 PT Fiberglasser Goals Skilled Nursing Goals PT Fiberglasser Goals Time Frame: March 12, 2017 Transfers (B,C,W/C) (FIM): 4 Gait (FIM): 2 Gait Assistive Device: FWW PT Plan Treatment/Plan Treatment Plan: Continue Plan of Care Treatment Plan: Bed Mobility, Education, Functional Activity Daniel, Functional Strength, Gait, Safety, Therapeutic Exercise, Transfers Treatment Duration: March 12, 2017 Visits Per Week: 11 Safety Risks/Education Patient Education: Gait Training, Transfer Techniques Teaching Recipient: Patient Teaching Methods: Demonstration, Discussion Response to Teaching: Verbalize Understanding, Unable to Return Demonstration, Unable to Comprehend, Reinforcement Needed Time/GCodes Time In: 1100 Time Out: 1130 Total Billed Treatment Time: 30 Total Billed Treatment 1,FA20m,EX10m G Codes Necessary: TOM Morton LEARNING DESIGN SPECIALIST March 10, 2017 11:43
[2017-03-10] MEDS: RAMIPRIL 5 MG (ALTACE) CAP PO SCH (11:46)
--- NOTE | 2017-03-10 14:59 | Physical Therapy Daily Note ---
PT Daily Note-Current Subjective Pt. states he still feel so miserable and has had this dizzy feeling for quite some time and uncoordinated movement "because of all the pills they have me on" . After rx c/o pain in left hip at "12/10" Pain Numeric Pain Scale: 10-Worst Possible Pain (12) Location: Left Location Body Site: Hip Pain Description: Heavy Mental Status Patient Orientation: Person, Place, Situation Attachments: Ulloa Catheter Transfers Functional Nolan Measure 0=Not Assessed/NA 4=Minimal Assistance 1=Total Assistance 5=Supervision or Setup 2=Maximal Assistance 6=Modified Nolan 3=Moderate Assistance 7=Complete IndependenceIRFPAI Quality Coding Scale 6 Independent with activity with or without an assistive device 5 Patient requires set up or clean up by helper. Patient completes activity by themselves 4 Supervision or touching assist (CGA). [place] provide cues , steadying assist 3 The helper provides less than half the effort to complete the activity 2 The helper provides more than half the effort to complete the activity 1 Dependent. The helper does all the effort to complete an activity 7 Patient refused to complete or attempt activity 9 The patient did not perform the activity before the current illness or injury 88 Not attempted due to Medical conditions or safety concerns min to mod assist sup to sit and sit to stand , very retropulsive and thrashes backwards several times Gait Training Gait Assistive Device: FWW 5ft sideways x 2 along bedside as pts. coordination and balance very unpredictable Exercises Supine Ex: Ankle pumps, Quad Set, Rolling, Glut sets, Heel Slides, Scooting, Hip abd/add Supine Reps: 12 Assessment Current Status: Fair Progress pain limits pts participation this PM, balance and coordination influence mobility PT Short Term Goals Short Term Goals Transfers (B,C,W/C) (FIM): 5 PT Jail Goals Jail Goals PT Jail Goals Time Frame: March 12, 2017 Transfers (B,C,W/C) (FIM): 4 Gait (FIM): 2 Gait Assistive Device: FWW PT Plan Treatment/Plan Treatment Plan: Continue Plan of Care Treatment Plan: Bed Mobility, Education, Functional Activity Danile, Functional Strength, Gait, Safety, Therapeutic Exercise, Transfers Treatment Duration: March 12, 2017 Visits Per Week: 11 Safety Risks/Education Patient Education: Gait Training, Transfer Techniques Teaching Recipient: Patient Time/GCodes Time In: 1435 Time Out: 1505 Total Billed Treatment Time: 30 Total Billed Treatment 1,FA15,EX15 G Codes Necessary: TOM Morton MANAGER ROOM March 10, 2017 14:59
[2017-03-10 16:10] VITALS: BP 103/56
[2017-03-10] MEDS: ALFUZOSIN HCL 10 MG TAB (UROXATRAL) PO SCH (17:11)
[2017-03-10] MEDS: SIMvastatin 40 MG (ZOCOR) TAB PO SCH (21:32)
[2017-03-10] MEDS: LORATADINE (CLARITIN) 10 MG TAB PO SCH (21:32)
[2017-03-10] MEDS: OLANZapine 2.5 MG (ZyPREXA) TAB PO SCH (21:32)
[2017-03-10] MEDS: GABAPENTIN 100 MG (NEURONTIN) CAP PO SCH (21:32)
[2017-03-10] MEDS: TEMAZEPAM 15 MG (RESTORIL) CAP PO SCH (21:32)
[2017-03-10] MEDS: eZETimibe 10 MG (ZETIA) TABLET PO SCH (21:34)
[2017-03-11] VITALS: BP 114/63
--- NOTE | 2017-03-11 | Progress Note (SOAP) ---
Subjective Subjective/Events-last exam Mr Dalton is POD #2 s/p left hip TFN, laying in bed this Am with c/o left hip pain , at bedside. They state he is being evaluated for IPR. He denies CP or SOB. He is being followed by Dr Hartman and Dr Goodman. Review of Systems General: No Chills, No Night Sweats HEENT: No Head Aches, No Visual Changes Pulmonary: No Dyspnea, No Cough Cardiovascular: No: Chest Pain, Palpitations Gastrointestinal: No: Nausea, Vomiting Musculoskeletal: leg pain Neurological: No: Numbness, Weakness Objective Exam Vital Signs Date Time Temp Pulse Resp B/P (MAP) Pulse Ox O2 Delivery O2 Flow Rate FiO2 03/10/17 18:32 97 03/10/17 16:10 98.4 95 22 103/56 96 Room Air 03/10/17 14:16 93 03/10/17 10:51 95 03/10/17 08:28 99.1 107 20 115/44 95 Nasal Cannula 2.00 03/10/17 07:50 94 03/10/17 00:00 99.5 100 20 100/58 98 Nasal Cannula 2.00 I & O 03/10/17 07:00 Intake Total 900 ml Output Total 1450 ml Balance -550 ml Capillary Refill : Less Than 3 SecondsLess Than 3 Seconds General Appearance: No Apparent Distress, WD/WN Neck: Normal Inspection Respiratory: No Accessory Muscle Use, No Respiratory Distress Cardiovascular: Normal Peripheral Pulses Peripheral Pulses: 2+ Dorsalis Pedis (R), 2+ Left Dors-Pedis (L) Gastrointestinal: non tender, soft Extremity: Normal Capillary Refill, Non Tender, No Calf Tenderness, No Pedal Edema Neurologic/Psychiatric: Alert, Oriented x3 Skin: Normal Color Results Lab Laboratory Tests 03/10/17 05:54: Glucometer 190H 03/10/17 06:10: White Blood Count 8.4, Red Blood Count 3.06L, Hemoglobin 9.1L, Hematocrit 25L, Mean Corpuscular Volume 83, Mean Corpuscular Hemoglobin 30, Mean Corpuscular Hemoglobin Concent 36, Red Cell Distribution Width 13.4, Platelet Count 261, Mean Platelet Volume 8.2, Sodium Level 129L, Potassium Level 3.9, Chloride Level 96L, Carbon Dioxide Level 22, Anion Gap 11, Blood Urea Nitrogen 13, Creatinine 0.88, Estimat Glomerular Filtration Rate > 60, BUN/Creatinine Ratio 15, Glucose Level 180H, Calcium Level 8.5, Total Bilirubin 0.8, Aspartate Amino Transf (AST/SGOT) 76H, Alanine Aminotransferase (ALT/SGPT) 109H, Alkaline Phosphatase 123, Total Protein 5.7L, Albumin 3.5 03/10/17 10:47: Glucometer 214H 03/10/17 16:11: Glucometer 176H 03/10/17 20:40: Glucometer 227H Microbiology 03/08/17 MRSA Screen - Final, Complete MRSA not isolated Assessment/Plan Assessment/Plan Assess & Plan/Chief Complaint POD #2 s/p left TFN Plan: OOB as tolerated calf scd, on aspirin and plavix follow up with Dr Maloney in 2 weeks Clinical Quality Measures DVT/VTE Risk/Contraindication: Risk Factor Score Per Nursin RFS Level Per Nursing on Admit: 4+=Very High JESE ROQUE March 10, 2017 23:59
[2017-03-11] MEDS: oxyCODONE/APAP 7.5-325 MG (PERCOCET 7.5) TABLET PO PRN (00:43)
[2017-03-11 04:48] LABS: BASOPHILS % (AUTO) 0 % (0-10); EOSINOPHILS # (AUTO) 0.1 10^3/uL (0.0-0.3); EOSINOPHILS % (AUTO) 1 % (0-10); LYMPHOCYTES # (AUTO) 1.6 X 10^3 (1.0-4.0); LYMPHOCYTES % (AUTO) 17 % (12-44); MEAN CORPUSCULAR HEMOGLOBIN 30 PG (25-34); MEAN CORPUSCULAR HGB CONC 36 G/DL (32-36); MEAN CORPUSCULAR VOLUME 83 FL (80-99); MEAN PLATELET VOLUME 8.3 FL (7.4-10.4); MONOCYTES # (AUTO) 1.4 X 10^3 (0.0-1.0); MONOCYTES % (AUTO) 15 % (0-12); NEUTROPHILS # (AUTO) 6.2 X 10^3 (1.8-7.8); NEUTROPHILS % (AUTO) 66 % (42-75); PLATELET COUNT 333 10^3/uL (130-400); RED BLOOD COUNT 2.96 10^6/uL (4.35-5.85); RED CELL DISTRIBUTION WIDTH 13.2 % (10.0-14.5); WHITE BLOOD COUNT 9.4 10^3/uL (4.3-11.0)
[2017-03-11] MEDS ORDERED: oxyCODONE/APAP 10/325MG (PERCOCET 10) TABLET PO PRN (05:00)
--- NOTE | 2017-03-11 05:00 | Progress Note (SOAP) ---
Subjective Subjective/Events-last exam POD #3, s/p Left TFN Complains of pain at this time No acute distress Review of Systems Pulmonary: No Cough Cardiovascular: No: Chest Pain Genitourinary: Retention Musculoskeletal: leg pain Neurological: No: Weakness Objective Exam Vital Signs Date Time Temp Pulse Resp B/P (MAP) Pulse Ox O2 Delivery O2 Flow Rate FiO2 03/11/17 00:00 99.8 104 20 114/63 92 Room Air 03/10/17 18:32 97 03/10/17 16:10 98.4 95 22 103/56 96 Room Air 03/10/17 14:16 93 03/10/17 10:51 95 03/10/17 08:28 99.1 107 20 115/44 95 Nasal Cannula 2.00 03/10/17 07:50 94 I & O 03/11/17 07:00 Intake Total 1040 ml Output Total 1950 ml Balance -910 ml Capillary Refill : Less Than 3 SecondsLess Than 3 Seconds General Appearance: No Apparent Distress, WD/WN Gastrointestinal: non tender, soft Extremity: Normal Capillary Refill, No Calf Tenderness Neurologic/Psychiatric: Alert, Oriented x3, No Motor/Sensory Deficits, Normal Mood/Affect, metalizing machine operator automatic II-XII Norm as Tested Skin: Other (Dressing CDI) Results Lab Laboratory Tests 03/10/17 05:54: Glucometer 190H 03/10/17 06:10: White Blood Count 8.4, Red Blood Count 3.06L, Hemoglobin 9.1L, Hematocrit 25L, Mean Corpuscular Volume 83, Mean Corpuscular Hemoglobin 30, Mean Corpuscular Hemoglobin Concent 36, Red Cell Distribution Width 13.4, Platelet Count 261, Mean Platelet Volume 8.2, Sodium Level 129L, Potassium Level 3.9, Chloride Level 96L, Carbon Dioxide Level 22, Anion Gap 11, Blood Urea Nitrogen 13, Creatinine 0.88, Estimat Glomerular Filtration Rate > 60, BUN/Creatinine Ratio 15, Glucose Level 180H, Calcium Level 8.5, Total Bilirubin 0.8, Aspartate Amino Transf (AST/SGOT) 76H, Alanine Aminotransferase (ALT/SGPT) 109H, Alkaline Phosphatase 123, Total Protein 5.7L, Albumin 3.5 03/10/17 10:47: Glucometer 214H 03/10/17 16:11: Glucometer 176H 03/10/17 20:40: Glucometer 227H 03/11/17 04:35: Microbiology 03/08/17 MRSA Screen - Final, Complete MRSA not isolated Assessment/Plan Assessment/Plan Assess & Plan/Chief Complaint Left femur fracture, s/p left TFN Urinary retention Plan for transfer to Inpatient Rehab today Clinical Quality Measures DVT/VTE Risk/Contraindication: Risk Factor Score Per Nursin RFS Level Per Nursing on Admit: 4+=Very High DENITA SAUCEDO March 11, 2017 05:00
[2017-03-11 05:14] LABS: ALANINE AMINOTRANSFERASE 66 U/L (0-55); ALBUMIN 3.5 G/DL (3.2-4.5); ANION GAP 11 MMOL/L (5-14); ASPARTATE AMINO TRANSFERASE 31 U/L (5-34); BILIRUBIN,TOTAL 0.6 MG/DL (0.1-1.0); BLOOD UREA NITROGEN 11 MG/DL (7-18); BUN/CREATININE RATIO 14; CALCIUM 8.6 MG/DL (8.5-10.1); CARBON DIOXIDE 21 MMOL/L (21-32); CHLORIDE 99 MMOL/L (98-107); CREATININE SERUM 0.81 MG/DL (0.60-1.30); GFR ESTIMATED > 60; GLUCOSE 211 MG/DL (70-105); POTASSIUM 3.8 MMOL/L (3.6-5.0); SODIUM 131 MMOL/L (135-145); TOTAL PROTEIN 5.8 G/DL (6.4-8.2)
[2017-03-11] MEDS: ISOSORBIDE MONONITRATE 60 MG (IMDUR) TAB PO SCH (06:16)
[2017-03-11] MEDS: PANTOPRAZOLE 40 MG (PROTONIX) TAB PO SCH (06:16)
[2017-03-11] MEDS: inSUlin ASPART (NovoLOG) 1 UNIT/0.01 ML (CHARGE PER UNIT) SC SCH (06:16)
[2017-03-11] MEDS: BETHANECHOL 25 MG (URECHOLINE) TAB PO SCH (06:16)
[2017-03-11] MEDS: CATHETER FLUSH 10 ML SYR IV SCH (06:17)
[2017-03-11] MEDS ORDERED: ENOXAPARIN 30 MG/0.3 ML (LOVENOX) SYR SC SCH (07:00)
[2017-03-11] MEDS: RT-ALBUTEROL/IPRATROPIUM 3 ML (DUONEB) VIAL INH SCH (07:29)
[2017-03-11 08:00] VITALS: BP 102/55
[2017-03-11] MEDS: PIOGLITAZONE 30MG (ACTOS) TAB PO SCH (08:42)
[2017-03-11] MEDS: SENNA W/DOCUSATE (SENOKOT S) TABLET PO SCH (08:43)
[2017-03-11] MEDS: PHENYTOIN 100 MG (DILANTIN) CAP PO SCH (08:43)
[2017-03-11] MEDS: ASPIRIN E.C. 81 MG (ECOTRIN) TAB PO SCH (08:43)
[2017-03-11] MEDS: CLOPIDOGREL 75 MG (PLAVIX) TABLET PO SCH (08:43)
[2017-03-11] MEDS: IBUPROFEN TABLET 200 MG TAB PO SCH (08:43)
[2017-03-11] MEDS: FLUoxetine HCL 20 MG (PROzac) CAP PO SCH (08:43)
[2017-03-11] MEDS: LORazepam 1 MG (ATIVAN) TAB PO SCH (08:43)
[2017-03-11] MEDS: TIMOLOL MALEATE 0.5% 5 ML (TIMOPTIC) BTL OU SCH (08:46)
[2017-03-11] MEDS ORDERED: OXYC-465 PO (08:59)
[2017-03-11] MEDS ORDERED: ALFU10TA11 PO (08:59)
[2017-03-11] MEDS ORDERED: IPRA3AMP INH (08:59)
[2017-03-11] MEDS ORDERED: ENOX30DI4 SC (08:59)
[2017-03-11] MEDS ORDERED: BETH25TA PO (08:59)
[2017-03-11] MEDS ORDERED: LACT20SO2 PO (08:59)
[2017-03-11] MEDS ORDERED: INSU100V16 SC (08:59)
[2017-03-11] MEDS ORDERED: RT-ALBUTEROL/IPRATROPIUM 3 ML (DUONEB) VIAL ONE (10:36)
[2017-03-12] MEDS ORDERED: TAMS0.4C98 PO (10:23)
[2017-03-12] MEDS ORDERED: BETH25TA PO (10:23)
== END 2017-03-11 09:43 | DRG 481 ==
LOC: EDUNIT# 20:05 → ER 20:07 → 4TH 21:00
PROVIDERS: ADMIT Orthopaedic Surgery; ATTEND Orthopaedic Surgery
PROC: 0QS706Z Reposition Left Upper Femur with Intramedullary Internal Fixation Device, Open Approach (ICD-10-PCS; principal; 2017-03-08 12:01)
PROC: 0TJB8ZZ Inspection of Bladder, Via Natural or Artificial Opening Endoscopic (ICD-10-PCS; 2017-03-10)
DX: S72.142A Displaced intertrochanteric fracture of left femur, initial encounter for closed fracture (principal); M25.512 Pain in left shoulder; E87.1 Hypo-osmolality and hyponatremia; I25.10 Atherosclerotic heart disease of native coronary artery without angina pectoris; J44.9 Chronic obstructive pulmonary disease, unspecified; I10 Essential (primary) hypertension; E78.00 Pure hypercholesterolemia, unspecified; G40.909 Epilepsy, unspecified, not intractable, without status epilepticus; E11.9 Type 2 diabetes mellitus without complications; G43.909 Migraine, unspecified, not intractable, without status migrainosus; M19.91 Primary osteoarthritis, unspecified site; H40.9 Unspecified glaucoma; F41.9 Anxiety disorder, unspecified; G51.0 Bell's palsy; F31.9 Bipolar disorder, unspecified; K21.9 Gastro-esophageal reflux disease without esophagitis; R35.0 Frequency of micturition; F17.210 Nicotine dependence, cigarettes, uncomplicated; N52.9 Male erectile dysfunction, unspecified; D64.9 Anemia, unspecified; N40.1 Benign prostatic hyperplasia with lower urinary tract symptoms; R33.8 Other retention of urine; K59.00 Constipation, unspecified; Z95.1 Presence of aortocoronary bypass graft; Z95.5 Presence of coronary angioplasty implant and graft; Z87.11 Personal history of peptic ulcer disease; Z96.0 Presence of urogenital implants; W18.39XA Other fall on same level, initial encounter; Y92.099 Unspecified place in other non-institutional residence as the place of occurrence of the external cause; Y99.8 Other external cause status
CPT/HCPCS: 36415; 71010; 72170; 73030; 73502; 73552; 73700; 80053; 80185; 82962; 83735; 84484; 85025; 85027; 85610; 85730; 87081; 93005; 94640; 94664; 94760; 96374; 96375

== ENCOUNTER 2017-03-11 09:34 | Inpatient (IN) | payer MEDICARE, MEDICAID ==
[~2017-03-11] VITALS: Ht 167.6 cm; Wt 87.5 kg
[~2017-03-11 09:34] MED LIST changes: +ALFU10TA11 PO; +ENOX30DI4 SC; +FLT11013 INH; +GABA-486 PO; +IBUP-30 PO; +INSU100V16 SC; +IPRA3AMP INH; +LACT20SO2 PO; +OLAN2.5T19 PO; +OXYC-465 PO; +SIMV40TA4 PO; +TEMA15CA PO; +TIMO5DRO5 OU
--- NOTE | 2017-03-11 11:06 | Physical Therapy Evaluation ---
PT Evaluation-General Medical Diagnosis Admission Date March 11, 2017 at 09:51 Medical Diagnosis: left intertrochanteric fx; post repair Onset Date: Mar 07, 2017 Therapy Diagnosis Therapy Diagnosis: weakness; abn gait Height/Weight Height (Feet): 5 Height (Inches): 6.00 Weight (Pounds): 200 Weight (Ounces): 0.0 Precautions Precautions/Isolations: Standard Precautions Weight Bear Status Weight Bearing Restriction: Weight Bearing/Tolerated Location Restriction: L LE Referral Physician: Ovidio Reason for Referral: Evaluation/Treatment Medical History Pertinent Medical History: Arthritis, CABG, DM, GERD, HTN Additional Medical History Bipolar and seizure disorder Current History Pt was standing up and apparently had a seizure and fell sustaining above noted fracture. Post repair. Reviewed History: Yes Social History Home: Single Level Current Living Status: Alone Entry Into Home: Ramp Pt has a caregiver 36 hrs/wk Prior/Core FIM Prior Level of Function Functional [place] Measure 0=Not Assessed/NA 4=Minimal Assistance 1=Total Assistance 5=Supervision or Setup 2=Maximal Assistance 6=Modified [place] 3=Moderate Assistance 7=Complete [place] Bed Mobility: 7 Transfers (B,C,W/C) (FIM): 7 Gait: 6 (cane at times) PT Evaluation-Current Subjective Pt agreeable to PT. Reports he feels like he can just get up and walk but can't Pain Numeric Pain Scale: 8 Location: Left Location Body Site: Hip Pain Description: Stabbing Pt/Family Goals Return home as before. He reports he would like to leave by next Wednesday (March 19 ) Objective Patient Orientation: Person, Place, Time, Situation Problem Solving: Fair ROM/Strength ROM Lower Extremities wFL Strenght Lower Extremities Right LE is grossly 5/5; left LE is hip flexion 2/5, quads 3/5, hamstrings 3/5, DF 4/5, abduction 2/5 Integumentary/Posture Integumentary Intact Bowel Incontinence: No Bladder Incontinence: Ulloa Cath Posture Able to attain neutral but tends to lean to the right in standing. Neuromuscular (Tone, Coordination, Reflexes) Decreased functional coordination left LE wtih intentional movemeht. Sensory Vision: Wears Glasses Hearing: Functional Hand Dominance: Right Sensation Right Lower Extremit: Intact Sensation Left Lower Extremity: Intact Transfers Functional [place] Measure 0=Not Assessed/NA 4=Minimal Assistance 1=Total Assistance 5=Supervision or Setup 2=Maximal Assistance 6=Modified [place] 3=Moderate Assistance 7=Complete IndependenceIRFPAI Quality Coding Scale 6 Independent with activity with or without an assistive device 5 Patient requires set up or clean up by helper. Patient completes activity by themselves 4 Supervision or touching assist (CGA). Mary D provide cues , steadying assist 3 The helper provides less than half the effort to complete the activity 2 The helper provides more than half the effort to complete the activity 1 Dependent. The helper does all the effort to complete an activity 7 Patient refused to complete or attempt activity 9 The patient did not perform the activity before the current illness or injury 88 Not attempted due to Medical conditions or safety concerns Transfers (B, C, W/C) (FIM): 2 Scootin Roll Left to Right (QC): 3 Supine to/from Sit: 2 Sit to/from Stand: 3 Sit to Lying (QC): 3 Lying to Sitting/Side of Bed(Q: 2 (assist with both legs and trunk) Sit to Stand (QC): 3 (mod assist and cues to sequence) Chair/[id number]-[id number] Xfer(QC): 2 (max assist dance style) Car Transfer (QC): 88 Gait Does the Patient Walk?: Yes Mode of Locomotion: Walk Anticipated Mode of Locomotion: Walk Gait (FIM): 2 Distance (FIM): 1=up to 49 ft Walk 10 feet (QC): 88 (unable) Walk 50 ft with 2 Turns(QC): 88 Walk 150 ft (QC): 88 Walking 10ft/uneven surface-QC: 88 Distance: 5' in // bars Gait Level of Assist: 4 (assist to advance left LE and cues to sequence) Comments/Gait Description Uncoordinated movement of left LE with taking a step and needs cues to sequence and weight shift. Wheelchair Training Does the Pt Use a Wheelchair?: No Stairs Stairs (FIM): 0 (unable to attempt) 1 Step (curb) (QC): 88 4 Steps (QC): 88 12 Steps (QC): 88 Balance Sitting Static: Good Sitting Dynamic: Fair Standing Static: Fair Standing Dynamic: Fair Picking up an Object (QC): 88 Treatment gait in // bars 5' x 3 reps with min assist to advance left LE; assist to weight shift and skilled cues to sequence. Supine B LE ther ex x 10 AP, QS, HS, SAQ, hip abduct with min assist on the left for all exercises; exercises performed to enhance functional strength for transfers and gait. Assessment/Needs Post fall with intertrochanteric fracture that has been repaired. He is significantly limited in his ability to transfer or mobilize with noted L LE weakness. He has good potential to make functional gains and with skilled intervention should progress well. Rehab Potential: Good PT Short Term Goals Short Term Goals Time Frame: March 18, 2017 Transfers (B,C,W/C) (FIM): 4 Gait (FIM): 4 Distance (FIM): 3=150 ft Gait Assistive Device: FWW PT Salesperson Corsets Goals Skilled Nursing Goals PT Skilled Nursing Goals Time Frame: March 26, 2017 Transfers (B,C,W/C) (FIM): 7 Sit to Lying (QC): 6 Lying-Sitting on Side/Bed(QC): 6 Sit to Stand (QC): 6 Roll Left to Right (QC): 6 Chair/[id number] Xfer(QC): 6 Car Transfer (QC): 6 Does the Patient Walk: Yes Gait (FIM): 6 Gait distance (FIM): 3=150 ft Walk 10 feet (QC): 6 Walk 10ft-Uneven Surface(QC): 6 Walk 50ft with 2 Turns (QC): 6 Walk 150 ft (QC): 6 Gait Assistive Device: FWW Does the Pt use WC or Scooter?: No Stairs (FIM): 5 # of Steps: 8 1 Step (curb) (QC): 6 4 Steps (QC): 6 12 Steps (QC): 88 Picking up an Object (QC): 88 PT Plan Problem List Problem List: Activity Tolerance, Functional Strength, Safety, Balance, Gait, Transfer, Bed Mobility Treatment/Plan Treatment Plan: Continue Plan of Care Treatment Plan: Bed Mobility, Education, Functional Activity Daniel, Functional Strength, Group Therapy, Gait, Safety, Therapeutic Exercise, Transfers Treatment Duration: March 26, 2017 # of days/week 5-6 Visits Per Week: 10-15 Pt/Family Agrees w/Plan: Yes Safety Risks/Education Patient Education: Transfer Techniques, Safety Issues Teaching Recipient: Patient Teaching Methods: Demonstration, Discussion Discharge Recommendations Therapy D/C Recommendations: Physical Therapy Home Care Time/GCodes Time In: 930 Time Out: 1045 Total Billed Treatment Time: 75 Total Billed Treatment visit EVM 20 FA 55 KARAN GAYLE PT March 11, 2017 11:06
--- NOTE | 2017-03-11 11:14 | ST Cognitive Linguistic Eval ---
Speech Evaluation-General Medical Diagnosis Interochanteric Hip Fracture Onset Date: Mar 07, 2017 Therapy Diagnosis Therapy Diagnosis: Baseline Cognitive Impairment Referral Referring Physician: Dr. Corey Smith Reason for Referral: Evaluation/Treatment Cognitive Evaluation Medical History Pertinent Medical History: Arthritis, CABG, CAD, DM, GERD, HTN, Smoking Seizure disorder Reviewed History: Yes Speech PLF-Current Status Prior Level of Function The patient stated he was currently at his baseline cognitive function. Due to questionable confusion, the patient's accuracy was discussed with present family member (patient's cousin). Per cousin, the patient is currently functioning as he was prior to hospitalization with the exception of "a little shorter temperment, a short fuse." Subjective The patient was recently admitted to [facility] following repair of a intertrochanteric hip fracture. The patient greeted the clinician appropriately and was agreeable to participation in the cognitive evaluation. The patient's cousin was present at bedside. Language Eval: Auditory Comprehends Simple Yes/No Ques: Functional Indent/Objects Multiple [place]: Functional Ident/Pics in Multiple [place]: Functional Follows 1-Step Commands: Functional (With repetition for increased accuracy.) Follows Complex Directions: Moderate (Frequent repetition required.) Follows General Conversations: Mild (Redirection was required for continued topic maintenance.) Language Eval: Verbal Language Completes Spontaneous Greeting: Functional Produces Auto, Serial Info: Functional Imitates Simple Words/Phrases: Mild Word Finding: Functional Requests Basic Needs: Functional States Basic Personal Info: Functional Expresses Complex Ideas: Moderate Cognitive Patient Orientation The patient was oriented to date, location, date of , and name. The patient required mild verbal cueing for accuracy with month and year. Objective Cognitive Domain Attention: Moderate (Frequent redirection was required for continued topic maintenance.) Memory: Moderate Problem Solving: Moderate Objective Oral Motor/Speech Production The patient demonstrates a right facial droop secondary to a past medical history significant for [place] Palsy (per cousin). Mildly imprecise articulation was noted, as well as, hypernasality. The patient remained 100% intelligible in known and unknown contexts. Impression The patient demonstrated mild to moderate cognitive impairments, however, the cognitive impairments appear longstanding and were present at baseline (per patient, chart review, and cousin). Limited, if any, cognitive improvement would be achieved with skilled speech therapy throughout his inpatient rehabilitation stay. If patient's cognitive worsens, please reconsult speech pathology for skilled treatment. Communication/Social Cognition Comprehension: 3 Expression: 4 Social Interaction: 4 Problem Solvin Memory: 3 Speech Patient Assess Expression of Ideas/Wants: Exhibits (3) Understanding V[place]al Content: Sometimes Understands(2) Brief Interview-Mental Status: Yes Repetition of Three Words: Three (3) Temporal Orientation: Year: Missed by more than 5 yrs (0) Temporal Orientation: Month: Accurate within 5 days(2) Temporal Orientation: Day: Correct (1) (f) Recall : Wear to say "Sock": No, could not recall (0) Recall : Color: Yes, no cue required (2) Recall : Bed: No, could not recall (0) Speech-Plan Treatment Plan Speech Therapy Treatment Plan: Discontinue ST Evaluation, only. Please reconsult speech pathology if cognitive worsens throughout rehabilitation stay. Rehab Potential: Guarded Safety Risks/Education Teaching Recipient: Patient, Family Teaching Methods: Discussion Response to Teaching: Verbalize Understanding, Reinforcement Needed Education Topics Provided: Results, Recommendations, Plan of Care Time Speech Therapy Time In: 10:45 Speech Therapy Time Out: 11:00 Total Billed Time: 15 Billed Treatment Time 1, SHERIDAN GUARDADO March 11, 2017 11:14
[2017-03-11 11:19] VITALS: BP 144/65
--- NOTE | 2017-03-11 11:25 | Progress Note-Urology ---
Progress Note-Urology Progress Notes/Assess & Plan Progress/Assessment & Plan UNABLE TO VOID YESTERDAY, LARA BACK IN 1,200CC, TOLERATED INCREASE URECHOLINE, PLAN TOV TOMORROW Final Diagnosis URINE RETENTION WITH NEUROGENIC BLADDER ALBERT KNOTT MD March 11, 2017 11:25 am
--- NOTE | 2017-03-11 11:51 | History & Physical-Hospitalist ---
HPI History of Present Illness: HPI/Chief Complaint CC: Left Hip Fracture recovery in need of in-pt rehab HPI: This is 66yoWM who presents with left hip fracture repair and in need of recovery. He has a hx of seizure disorder and CAD. Patient Interview: Physical exam stable Pt was in PT during visit. Pt was verbal but did not seem concerned with discussing his care. he is more interested in talking to the nurses around him. Pt rates his pain as 10/10 which does not seem possible since it so many days out of repair No seizures reported Reviewed all meds and continued for inpatient rehabilitation Scribed by Sarah Montana under the direct supervision of Dr. Escoto. Source: patient Date Seen 03/11/17 Attending Physician Christian Nolan MD PCP Shahram Mccallum MD Referring Physician Date of Admission March 11, 2017 at 09:51 Home Medications & Allergies Home Medications Reviewed patient Home Medication Reconciliation Form Allergies Allergies Coded Allergies diazepam (Unverified Allergy, Unknown, 03/07/17) doxycycline (Unverified Allergy, Unknown, RASH, 03/07/17) phenobarbital (Unverified Allergy, Unknown, 03/07/17) RELAXES ME TOO MUCH piperacillin (Unverified Allergy, Unknown, RASH, PT HAS RECEIVED CEFAZOLIN IN THE PAST W/O ISSUE, 03/08/17) terazosin (Unverified Allergy, Unknown, 03/07/17) CHEST PAIN Past Yuresnx-Txdvyv-Tnxvwe Hx Patient Social History Marrital Status: Employed/Student: unemployed Type Used: Cigarettes 2nd Hand Smoke Exposure: Yes Recent Foreign Travel: No Contact w/other who traveled: No Recent Hopitalizations: No Immunizations Up To Date Date of Pneumonia Vaccine: Nov 08, 2016 Date of Influenza Vaccine: Aug 08, 2012 Seasonal Allergies Seasonal Allergies: No Surgeries HX Surgeries: Yes Surgeries: Appendectomy, Gallbladder, Orthopedic, Penile Implant, Renal, Transurethral Resection Respiratory Hx Respiratory Disorders: Yes Respiratory Disorders: COPD Cardiovascular Hx Cardiovascular Disorders: Yes (CABG IN 1999; 16 CARDIAC STENTS) Cardiac Disorders: Coronary Artery Disease, High Cholesterol, Hypertension Neurological Hx Neurological Disorders: Yes Neurological Disorders: Headaches /Migraines, Seizure Disorder Reproductive System Hx Reproductive Disorders: Yes (ED--PENILE IMPLANT) Sexually Transmitted Disease: No HIV/AIDS: No Genitourinary Hx Genitourinary Disorders: Yes (ED; URINARY FREQUENCY) Genitourinary Disorders: Benign Prostatic Hyperpl, Kidney Stones Gastrointestinal Hx Gastrointestinal Disorders: Yes Gastrointestinal Disorders: Gastroesophageal Reflux, Ulcer Musculoskeletal Hx Musculoskeletal Disorders: Yes (MUSCLE WEAKNESS) Musculoskeletal Disorders: Arthritis Endocrine Hx Endocrine Disorders: Yes Endocrine Disorders: Diabetes, Non-Insulin dep HEENT HX ENT Disorders: Yes ([place] Palsy) HEENT Disorders: Cataract, Glaucoma Loss of Vision: Denies Hearing Impairment: Hard of Hearing Cancer Hx Cancer: No Psychosocial Hx Psychiatric Problems: Yes Behavioral Health Disorders: Anxiety, Bipolar, Depression Integumentary HX Skin/Integumentary Disorder: No Blood Transfusions Hx Blood Disorders: Yes Adverse Reaction to a Blood Tr: No Review of Systems Constitutional: see HPI EENTM: no symptoms reported Respiratory: no symptoms reported Cardiovascular: no symptoms reported Gastrointestinal: no symptoms reported Genitourinary: decreased output, dysuria, frequency, hematuria, hesitancy Musculoskeletal: no symptoms reported Skin: no symptoms reported Psychiatric/Neurological: No Symptoms Reported All Other Systems Reviewed Negative Unless Noted: Yes Physical Exam Physical Exam Vital Signs Vital Sign - Last 12Hours 03/11/17 11:19 Temp 99.4 Pulse 92 Resp 20 B/P (MAP) 144/65 Pulse Ox 96 O2 Delivery Room Air Capillary Refill : General Appearance: No Apparent Distress, WD/WN, Chronically ill, Obese Eyes: Bilateral Eye Normal Inspection, Bilateral Eye PERRL HEENT: PERRL/EOMI, Normal ENT Inspection, Pharynx Normal Neck: Full Range of Motion, Normal Inspection, Non Tender, Supple, Carotid Bruit Respiratory: Chest Non Tender, Lungs Clear, No Accessory Muscle Use, No Respiratory Distress, Decreased Breath Sounds Cardiovascular: Regular Rate, Rhythm, No Edema, No Gallop, No JVD, No Murmur, Normal Peripheral Pulses Gastrointestinal: Normal Bowel Sounds, No Organomegaly, No Pulsatile Mass, Non Tender, Soft Back: Normal Inspection, No CVA Tenderness, No Vertebral Tenderness Extremity: Normal Capillary Refill, Normal Inspection, Normal Range of Motion, Non Tender, No Calf Tenderness, No Pedal Edema Neurologic/Psychiatric: Alert, Oriented x3, No Motor/Sensory Deficits, Normal Mood/Affect Skin: Normal Color, Warm/Dry Lymphatic: No Adenopathy Assessment/Plan Admission Diagnosis Assessment: Status post left hip fracture repair in need of inpatient rehabilitation Severe urinary retention acute on chronic requiring Ulloa catheter administration and urology consultation Postop anemia mild did not require transfusion Severe COPD Current smoker Severe and end-stage coronary artery disease Hypertension Vascular dementia Assessment and Plan Plan: Continue PT In-pt rehab Seizure precautions but on all home meds Monitor urinary retention CARLOS ESCOTO DO March 11, 2017 11:51
--- NOTE | 2017-03-11 12:41 | Occupational Therapy Eval ---
OT Evaluation-General/PLF Medical Diagnosis Admission Date March 11, 2017 at 09:51 Medical Diagnosis: Interochanteric Hip Fracture Onset Date: Mar 07, 2017 Therapy Diagnosis Therapy Diagnosis: decreased self care skills Height/Weight Height (Feet): 5 Height (Inches): 6.00 Weight (Pounds): 200 Weight (Ounces): 0.0 Referral Physician: Ovidio Medical History Pertinent Medical History: Arthritis, CABG, CAD, DM, GERD, HTN, Smoking Additional Medical History Bipolar, seizure disorder Reviewed History: Yes Social History Home: Single Level Entry Into Home: Ramp ADL-Prior Level of Function ADL PLOF Comments Pt lives alone, states he has caregivers 36 hours/week. Pt states he is normally able to dress himself, but has assist if needed. Pt has assist for bathing to wash back and hair. Caregivers do the cooking and housework. DME/Equipment: Bath Chair, Grab Bars, Tub/Shower, Toilet/Riser OT Current Status Subjective Pt in bed, agrees to therapy. Pt reports 8/10 pain in left LE. Mental Status/Objective Patient Orientation: Person, Place Attachments: Ulloa Catheter Current Glasses/Contacts: Yes Dentures/Partials: Yes Hand Dominance: Right Upper Extremity Strength Fair ADL-Treatment ADL-Current Pt supine to sit with assist for left LE and trunk; cues for technique. Pt completed sponge bath while seated EOB. Pt able to wash bilateral UE, chest, abdomen, serina area, and bilateral upper legs. Assist required for other areas. Don pullover shirt with CGA for sitting balance during task. Pt requires maximal assistance to don shorts. Stood with mod assist for balance during pant hike using FWW for balance. Pt is unable to reach feet to don socks, total assist required for task completion. Pt combed hair with set up. Pt requires increased time for ADLs and occasional cues for task completion. Pt returned to supine with assist for bilateral LE. Pt able to scoot up in bed with assistance. Pt in bed with needs met and friend present after session. Functional [place] Measure 0=Not Assessed/NA 4=Minimal Assistance 1=Total Assistance 5=Supervision or Setup 2=Maximal Assistance 6=Modified [place] 3=Moderate Assistance 7=Complete IndependenceIRFPAI Quality Coding Scale 6 Independent with activity with or without an assistive device 5 Patient requires set up or clean up by helper. Patient completes activity by themselves 4 Supervision or touching assist (CGA). [place] provide cues , steadying assist 3 The helper provides less than half the effort to complete the activity 2 The helper provides more than half the effort to complete the activity 1 Dependent. The helper does all the effort to complete an activity 7 Patient refused to complete or attempt activity 9 The patient did not perform the activity before the current illness or injury 88 Not attempted due to Medical conditions or safety concerns Grooming (FIM): 5 Bathing (FIM): 3 Bathing Location: L Arm, R Arm, L Upper Leg, R Upper Leg, Chest, Abdomen, Perineal Area Shower/Bathe Self (QC): 3 Upper Body Dressing (FIM): 4 Upper Body Dressing (QC): 4 Lower Body Dressing (FIM): 2 Lower Body Dressing (QC): 2 On/Off Footwear (QC): 1 Education OT Patient Education: Rehab process Teaching Recipient: Patient Teaching Methods: Discussion Response to Teaching: Verbalize Understanding, Reinforcement Needed OT Short Term Goals Short Term Goals Time Frame: March 18, 2017 Bathing(FIM): 4 Lower Body Dressing(FIM): 3 Toileting(FIM): 3 Toilet/Commode Transfer(FIM): 4 1=Demonstrate adherence to instructed precautions during ADL tasks. 2=Patient will verbalize/demonstrate understanding of assistive devices/ modifications for ADL. 3=Patient will improve strength/tolerance for activity to enable patient to perform ADL's. OT Body Design Checker Goals Nursing Home Goals Time Frame: April 01, 2017 Eating (FIM): 6 Eating (QC): 6 Groomin Oral Hygiene (QC): 6 Bathing(FIM): 5 Shower/Bathe Self (QC): 4 Upper Body Dressing(FIM): 5 Upper Body Dressing (QC): 4 Lower Body Dressing(FIM): 5 Lower Body Dressing (QC): 4 On/Off Footwear (QC): 5 Toileting(FIM): 6 Toileting Hygiene (QC): 6 Toilet/Commode Transfer(FIM): 6 Toilet/Commode Transfer (QC): 6 Shower Transfer(FIM): 5 Additional Goals: 1-Demonstrate ADL Tasks, 2-Verbalize Understanding, 3- ImproveStrength/Daniel 1=Demonstrate adherence to instructed precautions during ADL tasks. 2=Patient will verbalize/demonstrate understanding of assistive devices/ modifications for ADL. 3=Patient will improve strength/tolerance for activity to enable patient to perform ADL's. Goals established to maximize level of independence and allow safe return home. OT Education/Plan Problem List/Assessment Assessment: Decreased Activ Tolerance, Decreased UE Strength, Dependent Transfers, Impaired Self-Care Skills Pt to benefit from skilled OT intervention for ADL training, transfers, strengthening, adaptive equipment training, and home safety education to increase level of independence and allow safe return home. Discharge Recommendations Plan/Recommendations: Continue POC Treatment Plan/Plan of Care Treatment,Training & Education: Yes Patient would benefit from OT for education, treatment and training to promote independence in ADL's, mobility, safety and/or upper extremity function for ADL' s. Plan of Care: ADL Retraining, Functional Mobility, Group Exercise/Act as Ind, UE Funct Exercise/Act Treatment Duration: April 01, 2017 # of days/week 5-6 Visits Per Week: 10-12 Minutes/Day (M-F): 60-90 Minutes/Day (Sat/Meredith): PRN Agreement: Yes Rehab Potential: Fair Time/GCodes Start Time: 11:00 Stop Time: 12:00 Total Time Billed (hr/min): 60 Billed Treatment Time 1 visit, EVM(15minutes), ADLx3(45minutes) LAINE JOHANSEN OT March 11, 2017 12:41
--- NOTE | 2017-03-11 14:27 | Occupational Ther Daily Note ---
OT Current Status-Daily Note Subjective Pt in bed, agrees to treatment. Pt reports pain in left LE, requests pain pill; RN notified Mental Status/Objective Functional [place] Measure 0=Not Assessed/NA 4=Minimal Assistance 1=Total Assistance 5=Supervision or Setup 2=Maximal Assistance 6=Modified [place] 3=Moderate Assistance 7=Complete [place] ADL-Treatment Pt supine to sit with mod assist, cues for technique. Pt sit to stand with moderate assistance. Transfer to w/c using FWW. Pt has difficulty sequencing walker use for transfer, requires multiple cues for technique and safety. Pt requests to shave. To restroom via w/c. Pt shaved while seated at sink after set up. Pt rinsed mouth while seated at sink. Reviewed use of adaptive equipment for LE dressing. Pt doffed socks with SBA using dressing stick. Donned socks with SBA and increased time using sock aid. Pt returned to bed, resting with needs met and friend present after session. Functional [place] Measure 0=Not Assessed/NA 4=Minimal Assistance 1=Total Assistance 5=Supervision or Setup 2=Maximal Assistance 6=Modified [place] 3=Moderate Assistance 7=Complete IndependenceIRFPAI Quality Coding Scale 6 Independent with activity with or without an assistive device 5 Patient requires set up or clean up by helper. Patient completes activity by themselves 4 Supervision or touching assist (CGA). [place] provide cues , steadying assist 3 The helper provides less than half the effort to complete the activity 2 The helper provides more than half the effort to complete the activity 1 Dependent. The helper does all the effort to complete an activity 7 Patient refused to complete or attempt activity 9 The patient did not perform the activity before the current illness or injury 88 Not attempted due to Medical conditions or safety concerns Grooming (FIM): 5 Oral Hygiene (QC): 5 Education OT Patient Education: Modified ADL techniques Teaching Recipient: Patient Teaching Methods: Demonstration, Discussion Response to Teaching: Verbalize Understanding, Reinforcement Needed OT Short Term Goals Short Term Goals Time Frame: March 18, 2017 Bathing(FIM): 4 Lower Body Dressing(FIM): 3 Toileting(FIM): 3 Toilet/Commode Transfer(FIM): 4 1=Demonstrate adherence to instructed precautions during ADL tasks. 2=Patient will verbalize/demonstrate understanding of assistive devices/ modifications for ADL. 3=Patient will improve strength/tolerance for activity to enable patient to perform ADL's. OT Jail Goals It Account Manager Goals Time Frame: April 01, 2017 Eating (FIM): 6 Eating (QC): 6 Groomin Oral Hygiene (QC): 6 Bathing(FIM): 5 Shower/Bathe Self (QC): 4 Upper Body Dressing(FIM): 5 Upper Body Dressing (QC): 4 Lower Body Dressing(FIM): 5 Lower Body Dressing (QC): 4 On/Off Footwear (QC): 5 Toileting(FIM): 6 Toileting Hygiene (QC): 6 Toilet/Commode Transfer(FIM): 6 Toilet/Commode Transfer (QC): 6 Shower Transfer(FIM): 5 Additional Goals: 1-Demonstrate ADL Tasks, 2-Verbalize Understanding, 3- ImproveStrength/Daniel 1=Demonstrate adherence to instructed precautions during ADL tasks. 2=Patient will verbalize/demonstrate understanding of assistive devices/ modifications for ADL. 3=Patient will improve strength/tolerance for activity to enable patient to perform ADL's. OT Education/Plan Problem List/Assessment Pt to benefit from skilled OT intervention for ADL training, transfers, strengthening, adaptive equipment training, and home safety education to increase level of independence and allow safe return home. Discharge Recommendations Plan/Recommendations: Continue POC Treatment Plan/Plan of Care Patient would benefit from OT for education, treatment and training to promote independence in ADL's, mobility, safety and/or upper extremity function for ADL' s. Plan of Care: ADL Retraining, Functional Mobility, Group Exercise/Act as Ind, UE Funct Exercise/Act Treatment Duration: April 01, 2017 Visits Per Week: 10-12 Minutes/Day (M-F): 60-90 Minutes/Day (Sat/Meredith): PRN Agreement: Yes Rehab Potential: Fair Time/GCodes Start Time: 13:30 Stop Time: 14:00 Total Time Billed (hr/min): 30 Billed Treatment Time 1 visit, ADLx2(30minutes) LAINE JOHANSEN OT March 11, 2017 14:27
[2017-03-11] MEDS ORDERED: RT-ALBUTEROL SULF 2.5 MG/3 ML PRE-MIX VIAL IH PRN (14:30)
[2017-03-11] MEDS ORDERED: NITROGLYCERIN SUBLINGUAL 0.4 MG TAB (NITROSTAT) SL PRN (14:30)
[2017-03-11] MEDS ORDERED: LACTULOSE SYRUP 10GM/15ML (ENULOSE) 30ML UDC PO PRN (14:30)
[2017-03-11] MEDS ORDERED: LORazepam INJ 2 MG/ML (ATIVAN) VIAL IV PRN (14:30)
[2017-03-11] MEDS ORDERED: ONDANSETRON 4 MG/2 ML (SDV) Z0FRAN IVP PRN (14:30)
[2017-03-11] MEDS: RT-ALBUTEROL/IPRATROPIUM 3 ML (DUONEB) VIAL INH SCH ×2 (14:48→19:14)
--- NOTE | 2017-03-11 14:57 | Physical Therapy Daily Note ---
PT Daily Note-Current Subjective "I'm tired, I've been up and down all day." Agrees to bed exercises. Transfers Functional [place] Measure 0=Not Assessed/NA 4=Minimal Assistance 1=Total Assistance 5=Supervision or Setup 2=Maximal Assistance 6=Modified [place] 3=Moderate Assistance 7=Complete IndependenceIRFPAI Quality Coding Scale 6 Independent with activity with or without an assistive device 5 Patient requires set up or clean up by helper. Patient completes activity by themselves 4 Supervision or touching assist (CGA). [place] provide cues , steadying assist 3 The helper provides less than half the effort to complete the activity 2 The helper provides more than half the effort to complete the activity 1 Dependent. The helper does all the effort to complete an activity 7 Patient refused to complete or attempt activity 9 The patient did not perform the activity before the current illness or injury 88 Not attempted due to Medical conditions or safety concerns Exercises Supine Ex: Bridging, Ankle pumps, Quad Set, Glut sets, Heel Slides, Short Arc Quads, Straight leg raise (mod assist left), Hip abd/add Supine Reps: 15 (min assist on the left for all exercises except SLR) Treatments Ther ex completed to promote ability to move legs for bed mobility and functional transfers. Assessment Pt tolerated well. Improved ability to complete LE ther ex this visit. PT Short Term Goals Short Term Goals Time Frame: March 18, 2017 Transfers (B,C,W/C) (FIM): 4 Gait (FIM): 4 Distance (FIM): 3=150 ft Gait Assistive Device: FWW PT Advisory Services Associate Goals Advisory Services Associate Goals PT Long-Term Goals Time Frame: March 26, 2017 Transfers (B,C,W/C) (FIM): 7 Sit to Lying (QC): 6 Lying-Sitting on Side/Bed(QC): 6 Sit to Stand (QC): 6 Roll Left to Right (QC): 6 Chair/Fje-dp-Zacva Xfer(QC): 6 Car Transfer (QC): 6 Does the Patient Walk: Yes Gait (FIM): 6 Gait distance (FIM): 3=150 ft Walk 10 feet (QC): 6 Walk 10ft-Uneven Surface(QC): 6 Walk 50ft with 2 Turns (QC): 6 Walk 150 ft (QC): 6 Gait Assistive Device: FWW Does the Pt use WC or Scooter?: No Stairs (FIM): 5 # of Steps: 8 1 Step (curb) (QC): 6 4 Steps (QC): 6 12 Steps (QC): 88 Picking up an Object (QC): 88 PT Plan Problem List Problem List: Activity Tolerance, Functional Strength, Safety, Gait, Transfer, Bed Mobility Treatment/Plan Treatment Plan: Continue Plan of Care Treatment Plan: Bed Mobility, Education, Functional Activity Daniel, Functional Strength, Group Therapy, Gait, Safety, Therapeutic Exercise, Transfers Treatment Duration: March 26, 2017 Visits Per Week: 10-15 Time/GCodes Time In: 1405 Time Out: 1420 Total Billed Treatment Time: 15 Total Billed Treatment visit EX 15 KARAN GAYLE PT March 11, 2017 14:57
[2017-03-11] MEDS: inSUlin ASPART (NovoLOG) 1 UNIT/0.01 ML (CHARGE PER UNIT) SC SCH ×2 (17:20→20:52)
[2017-03-11] MEDS: ALFUZOSIN HCL 10 MG TAB (UROXATRAL) PO SCH (17:33)
[2017-03-11] MEDS: ISOSORBIDE MONONITRATE 60 MG (IMDUR) TAB PO SCH (17:33)
[2017-03-11] MEDS: BETHANECHOL 25 MG (URECHOLINE) TAB PO SCH ×2 (17:34→20:53)
[2017-03-11] MEDS: oxyCODONE/APAP 10/325MG (PERCOCET 10) TABLET PO PRN (17:34)
[2017-03-11] MEDS: ENOXAPARIN 30 MG/0.3 ML (LOVENOX) SYR SC SCH (17:42)
[2017-03-11 18:19] VITALS: BP 111/68
[2017-03-11] MEDS: RT-FLUTICASONE 110 MCG (FLOVENT) PER PUFF INH SCH (19:14)
[2017-03-11] MEDS: GABAPENTIN 100 MG (NEURONTIN) CAP PO SCH (20:52)
[2017-03-11] MEDS: TEMAZEPAM 15 MG (RESTORIL) CAP PO SCH (20:52)
[2017-03-11] MEDS: PHENYTOIN 100 MG (DILANTIN) CAP PO SCH (20:52)
[2017-03-11] MEDS: SIMvastatin 40 MG (ZOCOR) TAB PO SCH (20:52)
[2017-03-11] MEDS: eZETimibe 10 MG (ZETIA) TABLET PO SCH (20:53)
[2017-03-11] MEDS: LORATADINE (CLARITIN) 10 MG TAB PO SCH (20:53)
[2017-03-11] MEDS: LORazepam 1 MG (ATIVAN) TAB PO SCH (20:53)
[2017-03-11] MEDS: OLANZapine 2.5 MG (ZyPREXA) TAB PO SCH (20:53)
[2017-03-11] MEDS: SENNA W/DOCUSATE (SENOKOT S) TABLET PO SCH (20:53)
[2017-03-11] MEDS: TIMOLOL MALEATE 0.5% 5 ML (TIMOPTIC) BTL OU SCH (21:00)
[2017-03-12 05:00] VITALS: BP 136/74
[2017-03-12] MEDS: CATHETER FLUSH 10 ML SYR IV PRN (05:09)
[2017-03-12] MEDS: oxyCODONE/APAP 10/325MG (PERCOCET 10) TABLET PO PRN ×4 (05:09→23:19)
[2017-03-12] MEDS: inSUlin ASPART (NovoLOG) 1 UNIT/0.01 ML (CHARGE PER UNIT) SC SCH ×4 (06:07→20:16)
[2017-03-12] MEDS: PANTOPRAZOLE 40 MG (PROTONIX) TAB PO SCH (06:07)
[2017-03-12] MEDS: BETHANECHOL 25 MG (URECHOLINE) TAB PO SCH ×4 (06:07→20:18)
[2017-03-12] MEDS: ISOSORBIDE MONONITRATE 60 MG (IMDUR) TAB PO SCH ×2 (06:08→17:04)
[2017-03-12] MEDS: ENOXAPARIN 30 MG/0.3 ML (LOVENOX) SYR SC SCH ×2 (06:09→17:05)
[2017-03-12] MEDS: RT-ALBUTEROL/IPRATROPIUM 3 ML (DUONEB) VIAL INH SCH ×4 (06:47→18:32)
[2017-03-12] MEDS: RT-FLUTICASONE 110 MCG (FLOVENT) PER PUFF INH SCH ×2 (06:48→18:33)
[2017-03-12] MEDS: NICOTINE 21 MG (NICODERM) PATCH TD SCH (08:56)
[2017-03-12] MEDS: LORazepam 1 MG (ATIVAN) TAB PO SCH ×2 (08:57→20:18)
[2017-03-12] MEDS: FLUoxetine HCL 20 MG (PROzac) CAP PO SCH (08:57)
[2017-03-12] MEDS: CLOPIDOGREL 75 MG (PLAVIX) TABLET PO SCH (08:58)
[2017-03-12] MEDS: ASPIRIN E.C. 81 MG (ECOTRIN) TAB PO SCH (08:58)
[2017-03-12] MEDS: PHENYTOIN 100 MG (DILANTIN) CAP PO SCH ×2 (08:58→20:18)
[2017-03-12] MEDS: IBUPROFEN TABLET 200 MG TAB PO SCH (08:58)
[2017-03-12] MEDS: PIOGLITAZONE 30MG (ACTOS) TAB PO SCH (08:58)
[2017-03-12] MEDS: NICOTINE PATCH REMOVAL TP SCH (08:59)
[2017-03-12] MEDS: SENNA W/DOCUSATE (SENOKOT S) TABLET PO SCH ×2 (08:59→20:17)
--- NOTE | 2017-03-12 09:44 | Physical Therapy Daily Note ---
PT Daily Note-Current Subjective Pt. agrees to Rx but states he has had pain and did not sleep well last night. rates pain at "20/10" Pain Numeric Pain Scale: 10-Worst Possible Pain Location: Left Location Body Site: Hip Pain Description: Ache Mental Status Patient Orientation: Person, Place, Situation Transfers Functional [place] Measure 0=Not Assessed/NA 4=Minimal Assistance 1=Total Assistance 5=Supervision or Setup 2=Maximal Assistance 6=Modified [place] 3=Moderate Assistance 7=Complete IndependenceIRFPAI Quality Coding Scale 6 Independent with activity with or without an assistive device 5 Patient requires set up or clean up by helper. Patient completes activity by themselves 4 Supervision or touching assist (CGA). [place] provide cues , steadying assist 3 The helper provides less than half the effort to complete the activity 2 The helper provides more than half the effort to complete the activity 1 Dependent. The helper does all the effort to complete an activity 7 Patient refused to complete or attempt activity 9 The patient did not perform the activity before the current illness or injury 88 Not attempted due to Medical conditions or safety concerns Transfers (B, C, W/C) (FIM): 3 Scootin Rollin Supine to/from Sit: 3 Sit to/from Stand: 4 Bed to/from Chair: 4 Weight Bearing Weight Bearing Restriction: Weight Bearing/Tolerated Gait Training Does the Patient Walk?: Yes Gait (FIM): 1 Distance (FIM): 1=up to 49 ft (8ftx4) Gait Level of Assist: 3 Gait Persons Needed: 1 Gait Assistive Device: FWW needs cues to wt bear on hands and abduct left LE Exercises Supine Ex: Ankle pumps, Quad Set, Rolling, Glut sets, Heel Slides, Short Arc Quads, Scooting, Straight leg raise (assist), Hip abd/add Supine Reps: 12 Seated Therapy Exercises: Sit to stand, Long arc quads Seated Reps: 10 Assessment Current Status: Good Progress increased functional mob and gait skills PT Short Term Goals Short Term Goals Time Frame: March 18, 2017 Transfers (B,C,W/C) (FIM): 4 Gait (FIM): 4 Distance (FIM): 3=150 ft Gait Assistive Device: FWW PT Care Home Goals Care Home Goals PT Care Home Goals Time Frame: March 26, 2017 Transfers (B,C,W/C) (FIM): 7 Sit to Lying (QC): 6 Lying-Sitting on Side/Bed(QC): 6 Sit to Stand (QC): 6 Roll Left to Right (QC): 6 Chair/Egx-ga-Iidwk Xfer(QC): 6 Car Transfer (QC): 6 Does the Patient Walk: Yes Gait (FIM): 6 Gait distance (FIM): 3=150 ft Walk 10 feet (QC): 6 Walk 10ft-Uneven Surface(QC): 6 Walk 50ft with 2 Turns (QC): 6 Walk 150 ft (QC): 6 Gait Assistive Device: FWW Does the Pt use WC or Scooter?: No Stairs (FIM): 5 # of Steps: 8 1 Step (curb) (QC): 6 4 Steps (QC): 6 12 Steps (QC): 88 Picking up an Object (QC): 88 PT Plan Treatment/Plan Treatment Plan: Continue Plan of Care Treatment Plan: Bed Mobility, Education, Functional Activity Daniel, Functional Strength, Group Therapy, Gait, Safety, Therapeutic Exercise, Transfers Treatment Duration: March 26, 2017 Visits Per Week: 10-15 Safety Risks/Education Patient Education: Gait Training, Transfer Techniques Teaching Recipient: Patient Teaching Methods: Demonstration, Discussion Response to Teaching: Verbalize Understanding, Return Demonstration, Reinforcement Needed Time/GCodes Time In: 810 Time Out: 900 Total Billed Treatment Time: 50 Total Billed Treatment 1,GT30,EX20 G Codes Necessary: TOM Morton INDUSTRIAL ROOFER HELPER March 12, 2017 09:44
--- NOTE | 2017-03-12 09:46 | Progress Note-Urology ---
Progress Note-Urology Progress Notes/Assess & Plan Progress/Assessment & Plan TOV TODAY Final Diagnosis URINE RETENTION ALBERT KNOTT MD March 12, 2017 9:46 am
[2017-03-12] MEDS ORDERED: BETH25TA PO (10:23)
[2017-03-12] MEDS ORDERED: TAMS0.4C98 PO (10:23)
--- NOTE | 2017-03-12 11:10 | Occupational Ther Daily Note ---
OT Current Status-Daily Note Subjective Pt lying in bed with visitors present. Pt agreed to therapy. Stated that the pain meds he had taken took away his pain. Mental Status/Objective Patient Orientation: Person, Place, Time, Situation Functional [place] Measure 0=Not Assessed/NA 4=Minimal Assistance 1=Total Assistance 5=Supervision or Setup 2=Maximal Assistance 6=Modified [place] 3=Moderate Assistance 7=Complete [place] Attachments: [place] Catheter, IV ADL-Treatment Min A to go from supine to sitting, assist with L LE. Mod A for stand pivot transfer with FWW from EOB to w/c. Min A to transfer from w/c to shower using shower bench and grabbars. Pt able to bathe self after set up and mod A to stand and cleanse buttocks. Pt did not attempt to bathe L LE at this time. Pt was able to dry self without assistance. After set up, pt was able to don/doff shirt by self. Using dressing stick pt doffed socks then using sock aide donned socks with min A. CGA in standing for balance while pt doffed pants. Pt used dressing stick with min A to don pants then min A in standing to hike pants over L hip. Pt sat at sink and complete oral care with oral swab due to no teeth and combed own hair. Pt then transferred from w/c to bed with min A and was able to swing B LE's into bed without assistance. Pt tends to vocalize loudly when completing ADLs. After therapy, pt lying in bed with call light/ phone in reach. Dressing changed while lying in bed. All needs met in room. Functional [place] Measure 0=Not Assessed/NA 4=Minimal Assistance 1=Total Assistance 5=Supervision or Setup 2=Maximal Assistance 6=Modified [place] 3=Moderate Assistance 7=Complete IndependenceIRFPAI Quality Coding Scale 6 Independent with activity with or without an assistive device 5 Patient requires set up or clean up by helper. Patient completes activity by themselves 4 Supervision or touching assist (CGA). [place] provide cues , steadying assist 3 The helper provides less than half the effort to complete the activity 2 The helper provides more than half the effort to complete the activity 1 Dependent. The helper does all the effort to complete an activity 7 Patient refused to complete or attempt activity 9 The patient did not perform the activity before the current illness or injury 88 Not attempted due to Medical conditions or safety concerns Grooming (FIM): 6 Oral Hygiene (QC): 6 Bathing (FIM): 3 Bathing Location: L Arm, R Arm, L Upper Leg, R Upper Leg, R Lower Leg ( including foot), Chest, Abdomen, Perineal Area Shower/Bathe Self (QC): 3 Upper Body (FIM): 5 Upper Body Dressing (QC): 5 Lower Body Dressing (FIM): 4 Lower Body Dressing (QC): 3 On/Off Footwear (QC): 3 Transfers (B, C, W/C) (FIM): 3 Shower Transfer(FIM): 4 OT Short Term Goals Short Term Goals Time Frame: March 18, 2017 Bathing(FIM): 4 Lower Body Dressing(FIM): 3 Toileting(FIM): 3 Transfers (B,C,W/C) (FIM): 4 Toilet/Commode Transfer(FIM): 4 1=Demonstrate adherence to instructed precautions during ADL tasks. 2=Patient will verbalize/demonstrate understanding of assistive devices/ modifications for ADL. 3=Patient will improve strength/tolerance for activity to enable patient to perform ADL's. OT Talent Analyst Goals Talent Analyst Goals Time Frame: April 01, 2017 Eating (FIM): 5 Eating (QC): 6 Groomin Oral Hygiene (QC): 6 Bathing(FIM): 5 Shower/Bathe Self (QC): 4 Upper Body Dressing(FIM): 5 Upper Body Dressing (QC): 4 Lower Body Dressing(FIM): 5 Lower Body Dressing (QC): 4 On/Off Footwear (QC): 5 Toileting(FIM): 4 Toileting Hygiene (QC): 6 Toilet/Commode Transfer(FIM): 6 Toilet/Commode Transfer (QC): 6 Shower Transfer(FIM): 5 Comprehension(FIM): 5 Expression (FIM): 5 Social Interaction(FIM): 4 Problem Solving(FIM): 4 Additional Goals: 1-Demonstrate ADL Tasks, 2-Verbalize Understanding, 3- ImproveStrength/Daniel 1=Demonstrate adherence to instructed precautions during ADL tasks. 2=Patient will verbalize/demonstrate understanding of assistive devices/ modifications for ADL. 3=Patient will improve strength/tolerance for activity to enable patient to perform ADL's. OT Education/Plan Problem List/Assessment Pt to benefit from skilled OT intervention for ADL training, transfers, strengthening, adaptive equipment training, and home safety education to increase level of independence and allow safe return home. Discharge Recommendations Plan/Recommendations: Continue POC Treatment Plan/Plan of Care Patient would benefit from OT for education, treatment and training to promote independence in ADL's, mobility, safety and/or upper extremity function for ADL' s. Plan of Care: ADL Retraining, Functional Mobility, Group Exercise/Act as Ind, UE Funct Exercise/Act Treatment Duration: April 01, 2017 Visits Per Week: 10-12 Minutes/Day (M-F): 60-90 Minutes/Day (Sat/[place]): PRN Agreement: Yes Rehab Potential: Good Time/GCodes Start Time: 09:30 Stop Time: 11:00 Total Time Billed (hr/min): 90 Billed Treatment Time 1 visit-ADL 6 (90 min) KARAN BILLS March 12, 2017 11:10
--- NOTE | 2017-03-12 11:33 | Physical Therapy Daily Note ---
PT Daily Note-Current Subjective Pt. states he is feeling a little better, ready to get up for a walk and lunch Pain Numeric Pain Scale: 0-No Pain Transfers Functional [place] Measure 0=Not Assessed/NA 4=Minimal Assistance 1=Total Assistance 5=Supervision or Setup 2=Maximal Assistance 6=Modified [place] 3=Moderate Assistance 7=Complete IndependenceIRFPAI Quality Coding Scale 6 Independent with activity with or without an assistive device 5 Patient requires set up or clean up by helper. Patient completes activity by themselves 4 Supervision or touching assist (CGA). [place] provide cues , steadying assist 3 The helper provides less than half the effort to complete the activity 2 The helper provides more than half the effort to complete the activity 1 Dependent. The helper does all the effort to complete an activity 7 Patient refused to complete or attempt activity 9 The patient did not perform the activity before the current illness or injury 88 Not attempted due to Medical conditions or safety concerns sup to sit min to CGA with HOB up slightly Weight Bearing Weight Bearing Restriction: Weight Bearing/Tolerated Gait Training Does the Patient Walk?: Yes Gait Assistive Device: FWW 25-30ftx3 Exercises Supine Ex: Ankle pumps, Quad Set, Heel Slides, Short Arc Quads, Straight leg raise (with assist), Hip abd/add Seated Therapy Exercises: Ankle pumps, Long arc quads Seated Reps: 10 Treatments up in recliner after Rx, call patel at hand Assessment Current Status: Good Progress progressing well, less c/o pain PT Short Term Goals Short Term Goals Time Frame: March 18, 2017 Transfers (B,C,W/C) (FIM): 4 Gait (FIM): 4 Distance (FIM): 3=150 ft Gait Assistive Device: FWW PT Aquaculture And Fisheries Professor Goals Alf Goals PT Aquaculture And Fisheries Professor Goals Time Frame: March 26, 2017 Transfers (B,C,W/C) (FIM): 7 Sit to Lying (QC): 6 Lying-Sitting on Side/Bed(QC): 6 Sit to Stand (QC): 6 Rollin Roll Left to Right (QC): 6 Chair/Tyq-aq-Avpzc Xfer(QC): 6 Car Transfer (QC): 6 Does the Patient Walk: Yes Gait (FIM): 6 Gait distance (FIM): 3=150 ft Walk 10 feet (QC): 6 Walk 10ft-Uneven Surface(QC): 6 Walk 50ft with 2 Turns (QC): 6 Walk 150 ft (QC): 6 Gait Assistive Device: FWW Does the Pt use WC or Scooter?: No Stairs (FIM): 5 # of Steps: 8 1 Step (curb) (QC): 6 4 Steps (QC): 6 12 Steps (QC): 88 Picking up an Object (QC): 88 PT Plan Treatment/Plan Treatment Plan: Bed Mobility, Education, Functional Activity Daniel, Functional Strength, Group Therapy, Gait, Safety, Therapeutic Exercise, Transfers Treatment Duration: March 26, 2017 Visits Per Week: 10-15 Safety Risks/Education Patient Education: Gait Training, Transfer Techniques Teaching Recipient: Patient Teaching Methods: Demonstration, Discussion Response to Teaching: Verbalize Understanding, Return Demonstration, Reinforcement Needed Time/GCodes Time In: 1100 Time Out: 1145 Total Billed Treatment Time: 45 Total Billed Treatment 1,GT20m,FA10m,EX15m G Codes Necessary: TOM Morton ROLL WEIGHER March 12, 2017 11:33
[2017-03-12] MEDS: RAMIPRIL 5 MG (ALTACE) CAP PO SCH (12:12)
[2017-03-12] MEDS: TIMOLOL MALEATE 0.5% 5 ML (TIMOPTIC) BTL OU SCH ×2 (16:41→20:17)
[2017-03-12] MEDS: ALFUZOSIN HCL 10 MG TAB (UROXATRAL) PO SCH (17:04)
[2017-03-12 18:56] VITALS: BP 122/64
--- NOTE | 2017-03-12 19:35 | PM&R Post Admission Assessment ---
Post Admission Physician Asses The preadmission screen agrees with the post admission assessment that the patient is a good candidate for inpatient rehabilitation. The patient will have a comprehensive program of inpatient rehabilitation with a goal of maximizing level of functional independence prior to discharge home with [family]. The patient will have PT/OT ninety minutes per day, each discipline, five days a week for gait strengthening, conditioning, balance, ADLs , any patient/family/caregiver training necessary. Speech therapy to do cognitive assessment and treat as indicted. Rehabilitation nursing to assist with bowel, bladder, skin, wound care, medication administration, pain management. Echo Technologist to assist with discharge planning, community reentry. SCD's for DVT prophylaxis. He appears to be well motivated to participate in three hours of therapy a day. He should be able to tolerate three hours of therapy a day from a medical standpoint. He should benefit from the three hours of therapy a day. He has a reasonable discharge plan, reasonable discharge rehabilitation goals and a supportive family. He has various comorbidities that need to be closely monitored with medications and treatments adjusted on a daily basis as needed. These include: DVT prophylaxis Seizures GERD Coronary Artery D Barriers to discharge for this patient who had been independent prior to this are for him to be modified independent to supervision for ADLs and mobility skills prior to discharge home with family, so as to lessen the burden of the caregivers. Risks for this patient include: 1. Fall 2. Fracture 3. DVT 4. Pulmonary embolism 5. Wound infection 6. Skin breakdown 7. Contractures 8. Poorly controlled pain 9. Urinary retention 10. UTI 11. Respiratory infection 12. Aspiration 13. Angina Estimated Length of Stay: 14 days Prognosis: Rehab prognosis appears good for goal of discharge home with family modified independent to supervision for ADLs and mobility skills. RON KINNEY MD March 12, 2017 19:34
[2017-03-12] MEDS: LORATADINE (CLARITIN) 10 MG TAB PO SCH (20:17)
[2017-03-12] MEDS: SIMvastatin 40 MG (ZOCOR) TAB PO SCH (20:17)
[2017-03-12] MEDS: OLANZapine 2.5 MG (ZyPREXA) TAB PO SCH (20:18)
[2017-03-12] MEDS: TEMAZEPAM 15 MG (RESTORIL) CAP PO SCH (20:18)
[2017-03-12] MEDS: eZETimibe 10 MG (ZETIA) TABLET PO SCH (20:18)
[2017-03-12] MEDS: GABAPENTIN 100 MG (NEURONTIN) CAP PO SCH (20:18)
[2017-03-13] MEDS: oxyCODONE/APAP 10/325MG (PERCOCET 10) TABLET PO PRN ×5 (03:03→21:47)
[2017-03-13 05:00] VITALS: BP 135/76
[2017-03-13] MEDS: BETHANECHOL 25 MG (URECHOLINE) TAB PO SCH ×4 (06:00→20:31)
[2017-03-13] MEDS: PANTOPRAZOLE 40 MG (PROTONIX) TAB PO SCH (06:00)
[2017-03-13] MEDS: inSUlin ASPART (NovoLOG) 1 UNIT/0.01 ML (CHARGE PER UNIT) SC SCH ×4 (06:00→20:32)
[2017-03-13] MEDS: ISOSORBIDE MONONITRATE 60 MG (IMDUR) TAB PO SCH ×2 (06:00→16:38)
[2017-03-13] MEDS: ENOXAPARIN 30 MG/0.3 ML (LOVENOX) SYR SC SCH ×2 (06:01→18:02)
[2017-03-13] MEDS: RT-FLUTICASONE 110 MCG (FLOVENT) PER PUFF INH SCH ×2 (06:58→19:29)
[2017-03-13] MEDS: RT-ALBUTEROL/IPRATROPIUM 3 ML (DUONEB) VIAL INH SCH ×4 (06:58→19:29)
[2017-03-13] MEDS: ASPIRIN E.C. 81 MG (ECOTRIN) TAB PO SCH (08:07)
[2017-03-13] MEDS: NICOTINE 21 MG (NICODERM) PATCH TD SCH (08:07)
[2017-03-13] MEDS: NICOTINE PATCH REMOVAL TP SCH (08:07)
[2017-03-13] MEDS: PIOGLITAZONE 30MG (ACTOS) TAB PO SCH (08:08)
[2017-03-13] MEDS: PHENYTOIN 100 MG (DILANTIN) CAP PO SCH ×2 (08:08→20:31)
[2017-03-13] MEDS: FLUoxetine HCL 20 MG (PROzac) CAP PO SCH (08:08)
[2017-03-13] MEDS: LORazepam 1 MG (ATIVAN) TAB PO SCH ×2 (08:08→20:31)
[2017-03-13] MEDS: CLOPIDOGREL 75 MG (PLAVIX) TABLET PO SCH (08:08)
[2017-03-13] MEDS: IBUPROFEN TABLET 200 MG TAB PO SCH (08:09)
[2017-03-13] MEDS: SENNA W/DOCUSATE (SENOKOT S) TABLET PO SCH ×2 (08:09→20:31)
[2017-03-13] MEDS: TIMOLOL MALEATE 0.5% 5 ML (TIMOPTIC) BTL OU SCH ×2 (08:12→20:31)
[2017-03-13] MEDS: RAMIPRIL 5 MG (ALTACE) CAP PO SCH (11:23)
--- NOTE | 2017-03-13 12:13 | Physical Therapy Daily Note ---
PT Daily Note-Current Subjective Pt. states he is feeling better and is agreeable to get up for gait and ther ex Pain Numeric Pain Scale: 3 Location: Left Location Body Site: Hip Pain Description: Ache Mental Status Patient Orientation: Person, Place, Time, Situation Transfers Functional [place] Measure 0=Not Assessed/NA 4=Minimal Assistance 1=Total Assistance 5=Supervision or Setup 2=Maximal Assistance 6=Modified [place] 3=Moderate Assistance 7=Complete IndependenceIRFPAI Quality Coding Scale 6 Independent with activity with or without an assistive device 5 Patient requires set up or clean up by helper. Patient completes activity by themselves 4 Supervision or touching assist (CGA). [place] provide cues , steadying assist 3 The helper provides less than half the effort to complete the activity 2 The helper provides more than half the effort to complete the activity 1 Dependent. The helper does all the effort to complete an activity 7 Patient refused to complete or attempt activity 9 The patient did not perform the activity before the current illness or injury 88 Not attempted due to Medical conditions or safety concerns Transfers (B, C, W/C) (FIM): 4 Scootin Rollin Supine to/from Sit: 4 Sit to/from Stand: 4 Bed to/from Chair: 4 much time concentrating on sup to sit with bed flat using rails. Pt. stating he could not but did this with step by step skilled verbal instruction Weight Bearing Weight Bearing Restriction: Weight Bearing/Tolerated Location Restriction: L LE Gait Training Does the Patient Walk?: Yes Gait (FIM): 3 Distance (FIM): 3=150 ft (x2) Gait Level of Assist: 4 Gait Persons Needed: 1 Gait Assistive Device: FWW gait from room to commons area with shoes on this date demonstrating better balance and foot/leg control Exercises Supine Ex: Ankle pumps, Quad Set, Rolling, Glut sets, Heel Slides, Short Arc Quads, Scooting, Straight leg raise, Hip abd/add Supine Reps: 15 Assessment Current Status: Good Progress gait improved, TRFs improved, increased indep and funct mob PT Short Term Goals Short Term Goals Time Frame: March 18, 2017 Transfers (B,C,W/C) (FIM): 4 Gait (FIM): 4 Distance (FIM): 3=150 ft Gait Assistive Device: FWW PT Laborer Electroplating Goals Laborer Electroplating Goals PT Laborer Electroplating Goals Time Frame: March 26, 2017 Transfers (B,C,W/C) (FIM): 7 Sit to Lying (QC): 6 Lying-Sitting on Side/Bed(QC): 6 Sit to Stand (QC): 6 Rollin Roll Left to Right (QC): 6 Chair/Lmp-rj-Vswtv Xfer(QC): 6 Car Transfer (QC): 6 Does the Patient Walk: Yes Gait (FIM): 6 Gait distance (FIM): 3=150 ft Walk 10 feet (QC): 6 Walk 10ft-Uneven Surface(QC): 6 Walk 50ft with 2 Turns (QC): 6 Walk 150 ft (QC): 6 Gait Assistive Device: FWW Does the Pt use WC or Scooter?: No Stairs (FIM): 5 # of Steps: 8 1 Step (curb) (QC): 6 4 Steps (QC): 6 12 Steps (QC): 88 Picking up an Object (QC): 88 PT Plan Treatment/Plan Treatment Plan: Continue Plan of Care Treatment Plan: Bed Mobility, Education, Functional Activity Daniel, Functional Strength, Group Therapy, Gait, Safety, Therapeutic Exercise, Transfers Treatment Duration: March 26, 2017 Visits Per Week: 10-15 Safety Risks/Education Patient Education: Gait Training, Transfer Techniques, Correct Positioning, Safety Issues Teaching Recipient: Patient Teaching Methods: Demonstration, Discussion Response to Teaching: Verbalize Understanding, Return Demonstration, Reinforcement Needed Time/GCodes Time In: 900 Time Out: 920 Total Billed Treatment Time: 20 Total Billed Treatment 1,FA20m G Codes Necessary: TOM Morton PROTOTYPE ENGINEER March 13, 2017 12:13
[2017-03-13] MEDS: ALFUZOSIN HCL 10 MG TAB (UROXATRAL) PO SCH (16:39)
[2017-03-13 18:00] VITALS: BP 110/64
[2017-03-13] MEDS: GABAPENTIN 100 MG (NEURONTIN) CAP PO SCH (20:31)
[2017-03-13] MEDS: eZETimibe 10 MG (ZETIA) TABLET PO SCH (20:31)
[2017-03-13] MEDS: LORATADINE (CLARITIN) 10 MG TAB PO SCH (20:31)
[2017-03-13] MEDS: SIMvastatin 40 MG (ZOCOR) TAB PO SCH (20:31)
[2017-03-13] MEDS: OLANZapine 2.5 MG (ZyPREXA) TAB PO SCH (20:31)
[2017-03-13] MEDS: TEMAZEPAM 15 MG (RESTORIL) CAP PO SCH (20:31)
[2017-03-14] MEDS: oxyCODONE/APAP 10/325MG (PERCOCET 10) TABLET PO PRN ×4 (06:13→20:15)
[2017-03-14] MEDS: BETHANECHOL 25 MG (URECHOLINE) TAB PO SCH ×4 (06:13→20:15)
[2017-03-14] MEDS: ISOSORBIDE MONONITRATE 60 MG (IMDUR) TAB PO SCH ×2 (06:13→17:00)
[2017-03-14] MEDS: PANTOPRAZOLE 40 MG (PROTONIX) TAB PO SCH (06:13)
[2017-03-14] MEDS: inSUlin ASPART (NovoLOG) 1 UNIT/0.01 ML (CHARGE PER UNIT) SC SCH ×5 (06:14→21:37)
[2017-03-14] MEDS: ENOXAPARIN 30 MG/0.3 ML (LOVENOX) SYR SC SCH ×2 (06:23→20:17)
[2017-03-14 06:28] VITALS: BP 153/72
[2017-03-14] MEDS: RT-ALBUTEROL/IPRATROPIUM 3 ML (DUONEB) VIAL INH SCH ×4 (07:23→18:50)
[2017-03-14] MEDS: RT-FLUTICASONE 110 MCG (FLOVENT) PER PUFF INH SCH ×2 (07:24→18:51)
[2017-03-14] MEDS: NICOTINE 21 MG (NICODERM) PATCH TD SCH (07:35)
[2017-03-14] MEDS: NICOTINE PATCH REMOVAL TP SCH (07:35)
[2017-03-14] MEDS: TIMOLOL MALEATE 0.5% 5 ML (TIMOPTIC) BTL OU SCH ×2 (07:35→20:17)
[2017-03-14] MEDS: ASPIRIN E.C. 81 MG (ECOTRIN) TAB PO SCH (07:36)
[2017-03-14] MEDS: SENNA W/DOCUSATE (SENOKOT S) TABLET PO SCH ×2 (07:36→20:15)
[2017-03-14] MEDS: IBUPROFEN TABLET 200 MG TAB PO SCH (07:36)
[2017-03-14] MEDS: FLUoxetine HCL 20 MG (PROzac) CAP PO SCH (07:36)
[2017-03-14] MEDS: PIOGLITAZONE 30MG (ACTOS) TAB PO SCH (07:36)
[2017-03-14] MEDS: LORazepam 1 MG (ATIVAN) TAB PO SCH ×2 (07:36→20:15)
[2017-03-14] MEDS: PHENYTOIN 100 MG (DILANTIN) CAP PO SCH ×2 (07:36→20:15)
[2017-03-14] MEDS: CLOPIDOGREL 75 MG (PLAVIX) TABLET PO SCH (07:38)
[2017-03-14] MEDS: RAMIPRIL 5 MG (ALTACE) CAP PO SCH (11:23)
[2017-03-14] MEDS: ALFUZOSIN HCL 10 MG TAB (UROXATRAL) PO SCH (17:00)
[2017-03-14 17:40] VITALS: BP 111/68
[2017-03-14] MEDS: LORATADINE (CLARITIN) 10 MG TAB PO SCH (20:15)
[2017-03-14] MEDS: TEMAZEPAM 15 MG (RESTORIL) CAP PO SCH (20:15)
[2017-03-14] MEDS: OLANZapine 2.5 MG (ZyPREXA) TAB PO SCH (20:15)
[2017-03-14] MEDS: SIMvastatin 40 MG (ZOCOR) TAB PO SCH (20:15)
[2017-03-14] MEDS: GABAPENTIN 100 MG (NEURONTIN) CAP PO SCH (20:15)
[2017-03-14] MEDS: eZETimibe 10 MG (ZETIA) TABLET PO SCH (20:15)
[2017-03-15] MEDS: oxyCODONE/APAP 10/325MG (PERCOCET 10) TABLET PO PRN ×4 (04:33→21:06)
[2017-03-15 05:05] VITALS: BP_SYST 125; BP_SYST 153; BP_DIAS 72; BP_DIAS 83
[2017-03-15] MEDS: ISOSORBIDE MONONITRATE 60 MG (IMDUR) TAB PO SCH ×2 (05:33→16:46)
[2017-03-15] MEDS: BETHANECHOL 25 MG (URECHOLINE) TAB PO SCH ×4 (05:33→20:58)
[2017-03-15] MEDS: PANTOPRAZOLE 40 MG (PROTONIX) TAB PO SCH (05:33)
[2017-03-15] MEDS: inSUlin ASPART (NovoLOG) 1 UNIT/0.01 ML (CHARGE PER UNIT) SC SCH ×4 (05:34→20:58)
[2017-03-15] MEDS: ENOXAPARIN 30 MG/0.3 ML (LOVENOX) SYR SC SCH ×2 (06:07→17:41)
[2017-03-15] MEDS: RT-ALBUTEROL/IPRATROPIUM 3 ML (DUONEB) VIAL INH SCH ×4 (07:15→20:01)
[2017-03-15] MEDS: RT-FLUTICASONE 110 MCG (FLOVENT) PER PUFF INH SCH ×2 (07:15→20:01)
[2017-03-15] MEDS: CLOPIDOGREL 75 MG (PLAVIX) TABLET PO SCH (07:28)
[2017-03-15] MEDS: NICOTINE 21 MG (NICODERM) PATCH TD SCH (07:28)
[2017-03-15] MEDS: TIMOLOL MALEATE 0.5% 5 ML (TIMOPTIC) BTL OU SCH ×2 (07:28→20:56)
[2017-03-15] MEDS: NICOTINE PATCH REMOVAL TP SCH (07:28)
[2017-03-15] MEDS: LORazepam 1 MG (ATIVAN) TAB PO SCH ×2 (07:28→20:58)
[2017-03-15] MEDS: SENNA W/DOCUSATE (SENOKOT S) TABLET PO SCH ×2 (07:29→20:58)
[2017-03-15] MEDS: PIOGLITAZONE 30MG (ACTOS) TAB PO SCH (07:29)
[2017-03-15] MEDS: PHENYTOIN 100 MG (DILANTIN) CAP PO SCH ×2 (07:29→20:58)
[2017-03-15] MEDS: FLUoxetine HCL 20 MG (PROzac) CAP PO SCH (07:29)
[2017-03-15] MEDS: IBUPROFEN TABLET 200 MG TAB PO SCH (07:29)
[2017-03-15] MEDS: ASPIRIN E.C. 81 MG (ECOTRIN) TAB PO SCH (07:29)
--- NOTE | 2017-03-15 08:59 | Physical Therapy Daily Note ---
PT Daily Note-Current Subjective Pt. agrees to rx but c/o he has pain in his left hip at 9/10 and "wants a shot for it" but also states he is ready to go home Pain Numeric Pain Scale: 9 Location: Left Location Body Site: Hip Pain Description: Pressure Mental Status Patient Orientation: Normal For Age Transfers Functional [place] Measure 0=Not Assessed/NA 4=Minimal Assistance 1=Total Assistance 5=Supervision or Setup 2=Maximal Assistance 6=Modified [place] 3=Moderate Assistance 7=Complete IndependenceIRFPAI Quality Coding Scale 6 Independent with activity with or without an assistive device 5 Patient requires set up or clean up by helper. Patient completes activity by themselves 4 Supervision or touching assist (CGA). [place] provide cues , steadying assist 3 The helper provides less than half the effort to complete the activity 2 The helper provides more than half the effort to complete the activity 1 Dependent. The helper does all the effort to complete an activity 7 Patient refused to complete or attempt activity 9 The patient did not perform the activity before the current illness or injury 88 Not attempted due to Medical conditions or safety concerns Transfers (B, C, W/C) (FIM): 5 Scootin Rollin Supine to/from Sit: 5 Sit to/from Stand: 5 Gait Training Does the Patient Walk?: Yes Gait (FIM): 4 Distance (FIM): 3=150 ft (150,75x2) Gait Level of Assist: 4 Gait Persons Needed: 1 Gait Assistive Device: FWW skilled verbal instruction for more equal step length and sequence Exercises Seated Therapy Exercises: Ankle pumps, Sit to stand, Long arc quads, Hip abd/ add Seated Reps: 15 NuStep Minutes: 10 NuStep Workload: 2 Assessment Current Status: Good Progress more alert, increased indep PT Short Term Goals Short Term Goals Time Frame: March 18, 2017 Transfers (B,C,W/C) (FIM): 4 Gait (FIM): 4 Distance (FIM): 3=150 ft Gait Assistive Device: FWW PT Account Consultant Goals Shelter Goals PT Shelter Goals Time Frame: March 26, 2017 Transfers (B,C,W/C) (FIM): 7 Sit to Lying (QC): 6 Lying-Sitting on Side/Bed(QC): 6 Sit to Stand (QC): 6 Rollin Roll Left to Right (QC): 6 Chair/Sdf-ec-Yujgq Xfer(QC): 6 Car Transfer (QC): 6 Does the Patient Walk: Yes Gait (FIM): 6 Gait distance (FIM): 3=150 ft Walk 10 feet (QC): 6 Walk 10ft-Uneven Surface(QC): 6 Walk 50ft with 2 Turns (QC): 6 Walk 150 ft (QC): 6 Gait Assistive Device: FWW Does the Pt use WC or Scooter?: No Stairs (FIM): 5 # of Steps: 8 1 Step (curb) (QC): 6 4 Steps (QC): 6 12 Steps (QC): 88 Picking up an Object (QC): 88 PT Plan Treatment/Plan Treatment Plan: Continue Plan of Care Treatment Plan: Bed Mobility, Education, Functional Activity Daniel, Functional Strength, Group Therapy, Gait, Safety, Therapeutic Exercise, Transfers Treatment Duration: March 26, 2017 Visits Per Week: 10-15 Safety Risks/Education Patient Education: Gait Training, Transfer Techniques, Correct Positioning, Safety Issues Teaching Recipient: Patient Teaching Methods: Demonstration, Discussion Response to Teaching: Verbalize Understanding, Return Demonstration, Reinforcement Needed Time/GCodes Time In: 805 Time Out: 905 Total Billed Treatment Time: 60 Total Billed Treatment 1,GT30,EX30 G Codes Necessary: No TOM CASTILLO USABILITY SPECIALIST March 15, 2017 08:59
--- NOTE | 2017-03-15 10:07 | Occupational Ther Daily Note ---
OT Current Status-Daily Note Subjective Pt alert, sitting in recliner. Pt agreed to therapy. No c/o pain. Mental Status/Objective Patient Orientation: Person, Place, Time, Situation Functional [place] Measure 0=Not Assessed/NA 4=Minimal Assistance 1=Total Assistance 5=Supervision or Setup 2=Maximal Assistance 6=Modified [place] 3=Moderate Assistance 7=Complete [place] Attachments: IV ADL-Treatment Pt used FWW with SBA to retrieve clothing out of closet. Pt took 1 step backwards then LOB and caught himself. Pt then transported clothing from closet to bathroom. Transferred to shower using shower bench, FWW and grabbars with CGA. Using shower bench, grabbar and hand held shower pt is able to complete bathing by self, when standing to cleanse required SBA. Pt then sat in w/c to complete dressing. Pt used AE for lower body dressing, with SBA. While pt hiked pants up 1x LOB. Pt was able to complete grooming sitting at sink. Pt then transferred into bed with min A for LE's. Pt required CGA for stand pivot transfer. Min A to lay down in bed assisting LE into bed. After therapy, pt lying in bed with call light/phone in room. All needs met in room. Functional [place] Measure 0=Not Assessed/NA 4=Minimal Assistance 1=Total Assistance 5=Supervision or Setup 2=Maximal Assistance 6=Modified [place] 3=Moderate Assistance 7=Complete IndependenceIRFPAI Quality Coding Scale 6 Independent with activity with or without an assistive device 5 Patient requires set up or clean up by helper. Patient completes activity by themselves 4 Supervision or touching assist (CGA). [place] provide cues , steadying assist 3 The helper provides less than half the effort to complete the activity 2 The helper provides more than half the effort to complete the activity 1 Dependent. The helper does all the effort to complete an activity 7 Patient refused to complete or attempt activity 9 The patient did not perform the activity before the current illness or injury 88 Not attempted due to Medical conditions or safety concerns Grooming (FIM): 6 Bathing (FIM): 4 Upper Body (FIM): 5 Lower Body Dressing (FIM): 4 Transfers (B, C, W/C) (FIM): 4 Shower Transfer(FIM): 5 OT Short Term Goals Short Term Goals Time Frame: March 18, 2017 Bathing(FIM): 4 Lower Body Dressing(FIM): 3 Toileting(FIM): 3 Transfers (B,C,W/C) (FIM): 4 Toilet/Commode Transfer(FIM): 4 1=Demonstrate adherence to instructed precautions during ADL tasks. 2=Patient will verbalize/demonstrate understanding of assistive devices/ modifications for ADL. 3=Patient will improve strength/tolerance for activity to enable patient to perform ADL's. OT Store Group Manager Goals Group Home Goals Time Frame: April 01, 2017 Eating (FIM): 5 Eating (QC): 6 Groomin Oral Hygiene (QC): 6 Bathing(FIM): 5 Shower/Bathe Self (QC): 4 Upper Body Dressing(FIM): 5 Upper Body Dressing (QC): 4 Lower Body Dressing(FIM): 5 Lower Body Dressing (QC): 4 On/Off Footwear (QC): 5 Toileting(FIM): 4 Toileting Hygiene (QC): 6 Toilet/Commode Transfer(FIM): 6 Toilet/Commode Transfer (QC): 6 Shower Transfer(FIM): 5 Comprehension(FIM): 5 Expression (FIM): 5 Social Interaction(FIM): 4 Problem Solving(FIM): 4 Additional Goals: 1-Demonstrate ADL Tasks, 2-Verbalize Understanding, 3- ImproveStrength/Daniel 1=Demonstrate adherence to instructed precautions during ADL tasks. 2=Patient will verbalize/demonstrate understanding of assistive devices/ modifications for ADL. 3=Patient will improve strength/tolerance for activity to enable patient to perform ADL's. OT Education/Plan Problem List/Assessment Pt to benefit from skilled OT intervention for ADL training, transfers, strengthening, adaptive equipment training, and home safety education to increase level of independence and allow safe return home. Discharge Recommendations Plan/Recommendations: Continue POC Treatment Plan/Plan of Care Patient would benefit from OT for education, treatment and training to promote independence in ADL's, mobility, safety and/or upper extremity function for ADL' s. Plan of Care: ADL Retraining, Functional Mobility, Group Exercise/Act as Ind, UE Funct Exercise/Act Treatment Duration: April 01, 2017 Visits Per Week: 10-12 Minutes/Day (M-F): 60-90 Minutes/Day (Sat/Meredith): PRN Agreement: Yes Rehab Potential: Good Time/GCodes Start Time: 09:00 Stop Time: 10:00 Total Time Billed (hr/min): 60 Billed Treatment Time 1 visit- ADL 4 (60 min) KARAN BILLS March 15, 2017 10:07
--- NOTE | 2017-03-15 11:31 | Occupational Ther Daily Note ---
OT Current Status-Daily Note Subjective Pt alert, lying in bed. Nrsg present in room. Pt agreed to therapy. No c/o pain at this time. Mental Status/Objective Patient Orientation: Person, Place, Time, Situation Functional [place] Measure 0=Not Assessed/NA 4=Minimal Assistance 1=Total Assistance 5=Supervision or Setup 2=Maximal Assistance 6=Modified [place] 3=Moderate Assistance 7=Complete [place] Attachments: IV ADL-Treatment Functional [place] Measure 0=Not Assessed/NA 4=Minimal Assistance 1=Total Assistance 5=Supervision or Setup 2=Maximal Assistance 6=Modified [place] 3=Moderate Assistance 7=Complete IndependenceIRFPAI Quality Coding Scale 6 Independent with activity with or without an assistive device 5 Patient requires set up or clean up by helper. Patient completes activity by themselves 4 Supervision or touching assist (CGA). [place] provide cues , steadying assist 3 The helper provides less than half the effort to complete the activity 2 The helper provides more than half the effort to complete the activity 1 Dependent. The helper does all the effort to complete an activity 7 Patient refused to complete or attempt activity 9 The patient did not perform the activity before the current illness or injury 88 Not attempted due to Medical conditions or safety concerns Eating (FIM): 6 Eating (QC): 6 Tub Transfer(FIM): 4 Other Treatment Pt was able to go from supine to sitting EOB with HOB elevated by self. Pt stand pivot transfer with CGA for safety. Pt maneuvered w/c out of room to large shower room by self. Pt was educated on tub transfer bench due to having tub/shower at home and only a tub seat with back at home. Pt demonstrated understanding of transfer by completing with CGA for safety. Pt stated that he has 2 grabbars in his tub/shower at home. Pt then was transported back to room via w/c to work on feeding skills. Pt was able to set own self up, opening packages/containers and using regular utensils to feed self. After therapy, pt sitting in w/c eating lunch with call light/phone in reach. All needs met in room. Education OT Patient Education: Transfer techniques, Use of adapted equipment Teaching Recipient: Patient Teaching Methods: Demonstration, Discussion Response to Teaching: Verbalize Understanding, Return Demonstration OT Short Term Goals Short Term Goals Time Frame: March 18, 2017 Bathing(FIM): 4 Lower Body Dressing(FIM): 3 Toileting(FIM): 3 Transfers (B,C,W/C) (FIM): 4 Toilet/Commode Transfer(FIM): 4 1=Demonstrate adherence to instructed precautions during ADL tasks. 2=Patient will verbalize/demonstrate understanding of assistive devices/ modifications for ADL. 3=Patient will improve strength/tolerance for activity to enable patient to perform ADL's. OT Detention Goals Investigation Lieutenant Goals Time Frame: April 01, 2017 Eating (FIM): 5 Eating (QC): 6 Groomin Oral Hygiene (QC): 6 Bathing(FIM): 5 Shower/Bathe Self (QC): 4 Upper Body Dressing(FIM): 5 Upper Body Dressing (QC): 4 Lower Body Dressing(FIM): 5 Lower Body Dressing (QC): 4 On/Off Footwear (QC): 5 Toileting(FIM): 4 Toileting Hygiene (QC): 6 Toilet/Commode Transfer(FIM): 6 Toilet/Commode Transfer (QC): 6 Shower Transfer(FIM): 5 Comprehension(FIM): 5 Expression (FIM): 5 Social Interaction(FIM): 4 Problem Solving(FIM): 4 Additional Goals: 1-Demonstrate ADL Tasks, 2-Verbalize Understanding, 3- ImproveStrength/Daniel 1=Demonstrate adherence to instructed precautions during ADL tasks. 2=Patient will verbalize/demonstrate understanding of assistive devices/ modifications for ADL. 3=Patient will improve strength/tolerance for activity to enable patient to perform ADL's. OT Education/Plan Problem List/Assessment Pt to benefit from skilled OT intervention for ADL training, transfers, strengthening, adaptive equipment training, and home safety education to increase level of independence and allow safe return home. Discharge Recommendations Plan/Recommendations: Continue POC Treatment Plan/Plan of Care Patient would benefit from OT for education, treatment and training to promote independence in ADL's, mobility, safety and/or upper extremity function for ADL' s. Plan of Care: ADL Retraining, Functional Mobility, Group Exercise/Act as Ind, UE Funct Exercise/Act Treatment Duration: April 01, 2017 Visits Per Week: 10-12 Minutes/Day (M-F): 60-90 Minutes/Day (Sat/Meredith): PRN Agreement: Yes Rehab Potential: Good Time/GCodes Start Time: 11:00 Stop Time: 11:30 Total Time Billed (hr/min): 30 Billed Treatment Time 1 visit-FA 2 (30 min) KARAN BILLS March 15, 2017 11:31
[2017-03-15] MEDS: RAMIPRIL 5 MG (ALTACE) CAP PO SCH (12:25)
--- NOTE | 2017-03-15 13:36 | Physical Therapy Daily Note ---
PT Daily Note-Current Subjective Pt. relieved of 1400cc urine per nurse. Pt. now c/o he is very fatigued, but will exercise. Pain Numeric Pain Scale: 0-No Pain Mental Status Patient Orientation: Normal For Age Transfers Functional [place] Measure 0=Not Assessed/NA 4=Minimal Assistance 1=Total Assistance 5=Supervision or Setup 2=Maximal Assistance 6=Modified [place] 3=Moderate Assistance 7=Complete IndependenceIRFPAI Quality Coding Scale 6 Independent with activity with or without an assistive device 5 Patient requires set up or clean up by helper. Patient completes activity by themselves 4 Supervision or touching assist (CGA). [place] provide cues , steadying assist 3 The helper provides less than half the effort to complete the activity 2 The helper provides more than half the effort to complete the activity 1 Dependent. The helper does all the effort to complete an activity 7 Patient refused to complete or attempt activity 9 The patient did not perform the activity before the current illness or injury 88 Not attempted due to Medical conditions or safety concerns sup to sit to sup all Mod I Exercises Supine Ex: Bridging, Ankle pumps, Quad Set, Rolling, Glut sets, Heel Slides, Short Arc Quads, Scooting, Straight leg raise, Hip abd/add Supine Reps: 20 Seated Therapy Exercises: Ankle pumps, Long arc quads, Hip abd/add Seated Reps: 10 Assessment Current Status: Good Progress fatigued this PM PT Short Term Goals Short Term Goals Time Frame: March 18, 2017 Transfers (B,C,W/C) (FIM): 4 Gait (FIM): 4 Distance (FIM): 3=150 ft Gait Assistive Device: FWW PT Long-Term Goals Product Sales Engineer Goals PT Product Sales Engineer Goals Time Frame: March 26, 2017 Transfers (B,C,W/C) (FIM): 7 Sit to Lying (QC): 6 Lying-Sitting on Side/Bed(QC): 6 Sit to Stand (QC): 6 Rollin Roll Left to Right (QC): 6 Chair/Igr-dx-Noojs Xfer(QC): 6 Car Transfer (QC): 6 Does the Patient Walk: Yes Gait (FIM): 6 Gait distance (FIM): 3=150 ft Walk 10 feet (QC): 6 Walk 10ft-Uneven Surface(QC): 6 Walk 50ft with 2 Turns (QC): 6 Walk 150 ft (QC): 6 Gait Assistive Device: FWW Does the Pt use WC or Scooter?: No Stairs (FIM): 5 # of Steps: 8 1 Step (curb) (QC): 6 4 Steps (QC): 6 12 Steps (QC): 88 Picking up an Object (QC): 88 PT Plan Treatment/Plan Treatment Plan: Continue Plan of Care Treatment Plan: Bed Mobility, Education, Functional Activity Daniel, Functional Strength, Group Therapy, Gait, Safety, Therapeutic Exercise, Transfers Treatment Duration: March 26, 2017 Visits Per Week: 10-15 Safety Risks/Education Patient Education: Transfer Techniques (rolling, scooting up in bed) Time/GCodes Time In: 1300 Time Out: 1330 Total Billed Treatment Time: 30 Total Billed Treatment 1,FA10,EX20 G Codes Necessary: TOM Morton JOB PLACEMENT SPECIALIST March 15, 2017 13:36
[2017-03-15] MEDS: ALFUZOSIN HCL 10 MG TAB (UROXATRAL) PO SCH (17:41)
[2017-03-15 18:00] VITALS: BP 101/61
[2017-03-15] MEDS: eZETimibe 10 MG (ZETIA) TABLET PO SCH (20:57)
[2017-03-15] MEDS: GABAPENTIN 100 MG (NEURONTIN) CAP PO SCH (20:57)
[2017-03-15] MEDS: LORATADINE (CLARITIN) 10 MG TAB PO SCH (20:57)
[2017-03-15] MEDS: OLANZapine 2.5 MG (ZyPREXA) TAB PO SCH (20:57)
[2017-03-15] MEDS: TEMAZEPAM 15 MG (RESTORIL) CAP PO SCH (20:58)
[2017-03-15] MEDS: SIMvastatin 40 MG (ZOCOR) TAB PO SCH (20:58)
--- NOTE | 2017-03-15 21:55 | Individualized Plan of Care ---
Individualized Plan of Care Rehab Nursing IPOC Order Admission Date March 11, 2017 at 09:51 Current Orders Orders Patient Visit (03/15/17 ) Gait Training, Ea 15 Min (03/15/17 ) Exercise Therap, Ea 15 Min (03/15/17 ) Functional Activities, Ea 15 (03/15/17 ) Toilet every (bladder): (hrs): 2 hours while awake prn PT IPOC Problem List: Activity Tolerance, Functional Strength, Safety, Gait, Transfer, Bed Mobility Treatment Plan: Continue Plan of Care Bed Mobility, Education, Functional Activity Daniel, Functional Strength, Group Therapy, Gait, Safety, Therapeutic Exercise, Transfers Treatment Duration: March 26, 2017 Visits Per Week: 10-15 Minutes/Day (M-F): 60-90 Minutes/Day (Sat/Meredith): prn OT IPOC Problems: Decreased Activ Tolerance, Decreased UE Strength, Dependent Transfers , Impaired Self-Care Skills OT Problems Pt to benefit from skilled OT intervention for ADL training, transfers, strengthening, adaptive equipment training, and home safety education to increase level of independence and allow safe return home. Plan of Care: ADL Retraining, Functional Mobility, Group Exercise/Act as Ind, UE Funct Exercise/Act Treatment Duration: April 01, 2017 Visits Per Week: 10-12 Minutes/Day (M-F): 60-90 Minutes/Day (Sat/Meredith): PRN ST IPOC Speech Therapy Treatment Plan: Discontinue ST Physician IPOC Medical Issues being managed closely and that require the 24 hour availability of a physician:DM anemia Brief Synthesis of Preadmission Screen, Post-Admission Evaluation, and Therapy Evaluations:66 yo male s/p hip frx repair s/p fall with hx of seizures AND dm WHO HAD BEEN mODIFIED iNDEPENDENT PRIOR TO THIS Medical Prognosis: GOOD Anticipated Length of Stay: 04-01-17 Rehab Goals mODIDIED iNDEPENDENT TO SUPERVISION FOR ADLSand mobility skills Anticipated discharge destinat: Home with family and [facility] RON KINNEY MD March 15, 2017 21:55
[2017-03-16] MEDS: BETHANECHOL 25 MG (URECHOLINE) TAB PO SCH ×4 (06:51→20:41)
[2017-03-16] MEDS: PANTOPRAZOLE 40 MG (PROTONIX) TAB PO SCH (06:51)
[2017-03-16] MEDS: ISOSORBIDE MONONITRATE 60 MG (IMDUR) TAB PO SCH ×2 (06:51→16:39)
[2017-03-16] MEDS: ENOXAPARIN 30 MG/0.3 ML (LOVENOX) SYR SC SCH ×2 (06:51→18:25)
[2017-03-16] MEDS: inSUlin ASPART (NovoLOG) 1 UNIT/0.01 ML (CHARGE PER UNIT) SC SCH ×4 (06:54→20:43)
[2017-03-16 07:00] VITALS: BP 145/73
[2017-03-16] MEDS: RT-FLUTICASONE 110 MCG (FLOVENT) PER PUFF INH SCH ×2 (07:38→19:10)
[2017-03-16] MEDS: RT-ALBUTEROL/IPRATROPIUM 3 ML (DUONEB) VIAL INH SCH ×4 (07:38→19:10)
[2017-03-16] MEDS: ASPIRIN E.C. 81 MG (ECOTRIN) TAB PO SCH (08:31)
[2017-03-16] MEDS: CLOPIDOGREL 75 MG (PLAVIX) TABLET PO SCH (08:31)
[2017-03-16] MEDS: FLUoxetine HCL 20 MG (PROzac) CAP PO SCH (08:31)
[2017-03-16] MEDS: SENNA W/DOCUSATE (SENOKOT S) TABLET PO SCH ×2 (08:31→20:44)
[2017-03-16] MEDS: PHENYTOIN 100 MG (DILANTIN) CAP PO SCH ×2 (08:31→20:40)
[2017-03-16] MEDS: IBUPROFEN TABLET 200 MG TAB PO SCH (08:32)
[2017-03-16] MEDS: PIOGLITAZONE 30MG (ACTOS) TAB PO SCH (08:32)
[2017-03-16] MEDS: LORazepam 1 MG (ATIVAN) TAB PO SCH ×2 (08:32→20:43)
[2017-03-16] MEDS: oxyCODONE/APAP 10/325MG (PERCOCET 10) TABLET PO PRN ×2 (08:32→12:46)
[2017-03-16] MEDS: TIMOLOL MALEATE 0.5% 5 ML (TIMOPTIC) BTL OU SCH ×2 (09:00→20:40)
[2017-03-16] MEDS: NICOTINE PATCH REMOVAL TP SCH (11:00)
--- NOTE | 2017-03-16 11:03 | Occupational Ther Daily Note ---
OT Current Status-Daily Note Subjective Pt alert, sitting in recliner. Pt agreed to therapy. No c/o pain. Pt stated that he needs to get out of here because his help is quitting and his brother is trying to take his lawnmower. Mental Status/Objective Patient Orientation: Person, Place, Time, Situation Functional [place] Measure 0=Not Assessed/NA 4=Minimal Assistance 1=Total Assistance 5=Supervision or Setup 2=Maximal Assistance 6=Modified [place] 3=Moderate Assistance 7=Complete [place] Attachments: IV ADL-Treatment Pt declined to complete any bathing or dressing today, stating that he has done much to get dirty. Pt did ambulate to laundry room with CGA using FWW. Pt required cues to walk with feet apart for balance and stability. Pt demonstrates slight LOB throughout treatment. Standing in front of washer with FWW, pt was able to reach in and pull out clean clothes and place in dryer ( JENSEN held dryer door open). Pt requires CGA to min A for sit to stand and transfers for safety. Min A for maneuvering LE into bed. After therapy, pt lying in bed with call light/phone in reach. All needs met in room. Functional [place] Measure 0=Not Assessed/NA 4=Minimal Assistance 1=Total Assistance 5=Supervision or Setup 2=Maximal Assistance 6=Modified [place] 3=Moderate Assistance 7=Complete IndependenceIRFPAI Quality Coding Scale 6 Independent with activity with or without an assistive device 5 Patient requires set up or clean up by helper. Patient completes activity by themselves 4 Supervision or touching assist (CGA). [place] provide cues , steadying assist 3 The helper provides less than half the effort to complete the activity 2 The helper provides more than half the effort to complete the activity 1 Dependent. The helper does all the effort to complete an activity 7 Patient refused to complete or attempt activity 9 The patient did not perform the activity before the current illness or injury 88 Not attempted due to Medical conditions or safety concerns Other Treatment Pt ambulated with CGA to therapy gym. Completed UE dowel tanvir exercises with 2# wt attached. Pt then completed resistive grasp exercises 30x's. Arm bike duration 15 min at 15 whitehead resistance to increase strength and endurance for daily functional tasks. Pt was able to actively attend and reach out to choose preferred items against gravity. OT Short Term Goals Short Term Goals Time Frame: March 18, 2017 Bathing(FIM): 4 Lower Body Dressing(FIM): 3 Toileting(FIM): 3 Transfers (B,C,W/C) (FIM): 4 Toilet/Commode Transfer(FIM): 4 1=Demonstrate adherence to instructed precautions during ADL tasks. 2=Patient will verbalize/demonstrate understanding of assistive devices/ modifications for ADL. 3=Patient will improve strength/tolerance for activity to enable patient to perform ADL's. OT Spool Fixer Goals Nursing Home Goals Time Frame: April 01, 2017 Eating (FIM): 5 Eating (QC): 6 Groomin Oral Hygiene (QC): 6 Bathing(FIM): 5 Shower/Bathe Self (QC): 4 Upper Body Dressing(FIM): 5 Upper Body Dressing (QC): 4 Lower Body Dressing(FIM): 5 Lower Body Dressing (QC): 4 On/Off Footwear (QC): 5 Toileting(FIM): 4 Toileting Hygiene (QC): 6 Toilet/Commode Transfer(FIM): 6 Toilet/Commode Transfer (QC): 6 Shower Transfer(FIM): 5 Comprehension(FIM): 5 Expression (FIM): 5 Social Interaction(FIM): 4 Problem Solving(FIM): 4 Additional Goals: 1-Demonstrate ADL Tasks, 2-Verbalize Understanding, 3- ImproveStrength/Daniel 1=Demonstrate adherence to instructed precautions during ADL tasks. 2=Patient will verbalize/demonstrate understanding of assistive devices/ modifications for ADL. 3=Patient will improve strength/tolerance for activity to enable patient to perform ADL's. OT Education/Plan Problem List/Assessment Pt to benefit from skilled OT intervention for ADL training, transfers, strengthening, adaptive equipment training, and home safety education to increase level of independence and allow safe return home. Discharge Recommendations Plan/Recommendations: Continue POC Treatment Plan/Plan of Care Patient would benefit from OT for education, treatment and training to promote independence in ADL's, mobility, safety and/or upper extremity function for ADL' s. Plan of Care: ADL Retraining, Functional Mobility, Group Exercise/Act as Ind, UE Funct Exercise/Act Treatment Duration: April 01, 2017 Visits Per Week: 10-12 Minutes/Day (M-F): 60-90 Minutes/Day (Sat/Meredith): PRN Agreement: Yes Rehab Potential: Good Time/GCodes Start Time: 09:30 Stop Time: 11:00 Total Time Billed (hr/min): 90 Billed Treatment Time 1 visit-FA 3 (45 min) EX 3 (45 min) KARAN BILLS March 16, 2017 11:03
[2017-03-16] MEDS: NICOTINE 21 MG (NICODERM) PATCH TD SCH (11:22)
[2017-03-16] MEDS: RAMIPRIL 5 MG (ALTACE) CAP PO SCH (11:23)
--- NOTE | 2017-03-16 11:28 | Physical Therapy Daily Note ---
PT Daily Note-Current Subjective Pt supine in bed upon arrival. Pt reports pain of 10/10 in L hip today. Nurse gives morning meds. at start of tx. Pt agrees to PT. Pain Numeric Pain Scale: 10-Worst Possible Pain Location: Left Location Body Site: Hip Pain Description: Stabbing, Sharp Mental Status Patient Orientation: Person, Place, Situation Transfers Functional [place] Measure 0=Not Assessed/NA 4=Minimal Assistance 1=Total Assistance 5=Supervision or Setup 2=Maximal Assistance 6=Modified [place] 3=Moderate Assistance 7=Complete IndependenceIRFPAI Quality Coding Scale 6 Independent with activity with or without an assistive device 5 Patient requires set up or clean up by helper. Patient completes activity by themselves 4 Supervision or touching assist (CGA). [place] provide cues , steadying assist 3 The helper provides less than half the effort to complete the activity 2 The helper provides more than half the effort to complete the activity 1 Dependent. The helper does all the effort to complete an activity 7 Patient refused to complete or attempt activity 9 The patient did not perform the activity before the current illness or injury 88 Not attempted due to Medical conditions or safety concerns Transfers (B, C, W/C) (FIM): 4 Scootin Roll Left to Right (QC): 4 Supine to/from Sit: 4 Sit to/from Stand: 4 Sit to Stand (QC): 4 Chair/Ukr-ds-Ghpfy Xfer(QC): 4 Bed to/from Chair: 4 Weight Bearing Weight Bearing Restriction: Full Weight Bearing Location Restriction: LE Bilateral Gait Training Does the Patient Walk?: Yes Distance (FIM): 3=150 ft Distance: 200' Walk 10 feet (QC): 4 Walk 50 ft with 2 Turns(QC): 4 Walk 150 ft (QC): 4 Gait Level of Assist: 4 Gait Persons Needed: 1 Gait Assistive Device: FWW Pt 's amish is slow but steady, with no LOB. Pt walks with antalgic gait pattern due to pain in L hip. Exercises Seated Therapy Exercises: Ankle pumps, Long arc quads, Hip flexion, Kicking activity Seated Reps: 15 NuStep Minutes: 10 NuStep Workload: 2 Treatments Pt transfers from supine to EOB at Min A and then EOB to standing at CGA using FWW. Pt ambulates using FWW at CGA. Pt uses NuStep and completes Seated EX to increase strength and endurance. Pt then walks in Therapy Commons before returning to room to rest in recliner. Pt transfers to recliner at [facility]. Pt is left with all needs met at end of tx. Assessment Current Status: Fair Progress Pt reports tightness on L side which gets better during tx. Pt pain is the same at end of tx. Pt is wanting to visit with Legal Technician about Home Health for after discharge. PT Short Term Goals Short Term Goals Time Frame: March 18, 2017 Transfers (B,C,W/C) (FIM): 4 Gait (FIM): 4 Distance (FIM): 3=150 ft Gait Assistive Device: FWW PT Longterm Goals Longterm Goals PT Longterm Goals Time Frame: March 26, 2017 Transfers (B,C,W/C) (FIM): 7 Sit to Lying (QC): 6 Lying-Sitting on Side/Bed(QC): 6 Sit to Stand (QC): 6 Rollin Roll Left to Right (QC): 6 Chair/Kvb-cp-Hneza Xfer(QC): 6 Car Transfer (QC): 6 Does the Patient Walk: Yes Gait (FIM): 6 Gait distance (FIM): 3=150 ft Walk 10 feet (QC): 6 Walk 10ft-Uneven Surface(QC): 6 Walk 50ft with 2 Turns (QC): 6 Walk 150 ft (QC): 6 Gait Assistive Device: FWW Does the Pt use WC or Scooter?: No Stairs (FIM): 5 # of Steps: 8 1 Step (curb) (QC): 6 4 Steps (QC): 6 12 Steps (QC): 88 Picking up an Object (QC): 88 PT Plan Problem List Problem List: Activity Tolerance, Functional Strength, Safety, Balance, Gait, Transfer, Bed Mobility Treatment/Plan Treatment Plan: Continue Plan of Care Treatment Plan: Bed Mobility, Education, Functional Activity Daniel, Functional Strength, Group Therapy, Gait, Safety, Therapeutic Exercise, Transfers Treatment Duration: March 26, 2017 Visits Per Week: 10-15 Minutes/Day (M-F): 60-90 Minutes/Day (Sat/Meredith): prn Safety Risks/Education Patient Education: Gait Training, Transfer Techniques, Correct Positioning, Safety Issues Teaching Recipient: Patient Teaching Methods: Discussion Response to Teaching: Verbalize Understanding Time/GCodes Time In: 815 Time Out: 915 Total Billed Treatment Time: 60 Total Billed Treatment visit, GT (15m), FA (15m) & EX X2 (30m) RASHMI OLIVER CARBON FURNACE OPERATOR HELPER March 16, 2017 11:28
--- NOTE | 2017-03-16 13:37 | Physical Therapy Daily Note ---
PT Daily Note-Current Subjective Pt laying supine in bed upon arrival. Pt reports pain in L hip of 8/10. Pt agrees to PT. Pain Numeric Pain Scale: 8 Location: Left Location Body Site: Hip Pain Description: Ache, Tightness Mental Status Patient Orientation: Person, Place, Situation Transfers Functional [place] Measure 0=Not Assessed/NA 4=Minimal Assistance 1=Total Assistance 5=Supervision or Setup 2=Maximal Assistance 6=Modified [place] 3=Moderate Assistance 7=Complete IndependenceIRFPAI Quality Coding Scale 6 Independent with activity with or without an assistive device 5 Patient requires set up or clean up by helper. Patient completes activity by themselves 4 Supervision or touching assist (CGA). [place] provide cues , steadying assist 3 The helper provides less than half the effort to complete the activity 2 The helper provides more than half the effort to complete the activity 1 Dependent. The helper does all the effort to complete an activity 7 Patient refused to complete or attempt activity 9 The patient did not perform the activity before the current illness or injury 88 Not attempted due to Medical conditions or safety concerns Scootin Rollin Roll Left to Right (QC): 4 Supine to/from Sit: 4 Sit to/from Stand: 4 Sit to Lying (QC): 4 Sit to Stand (QC): 4 Chair/Wke-ut-Cdcua Xfer(QC): 4 Bed to/from Chair: 4 Weight Bearing Weight Bearing Restriction: Full Weight Bearing Location Restriction: LE Bilateral Gait Training Does the Patient Walk?: Yes Distance (FIM): 3=150 ft Distance: 300' Walk 10 feet (QC): 4 Walk 50 ft with 2 Turns(QC): 4 Walk 150 ft (QC): 4 Gait Level of Assist: 4 Gait Persons Needed: 1 Gait Assistive Device: FWW Pt's amish is slow but steady. Pt walks with antalgic gait pattern. Treatments Pt transferred from Supine to EOB at [facility] then EOB to Standing using FWW at [facility]. Pt ambulated in Therapy Commons and took rest break before ambulating to Laundry Room on Therapy Unit to steel pickler laundry before returning to room to rest. Pt transferred from Standing to EOB at [facility] then EOB to Supine at A. Pt was able to lock RLE under LLE and lifted it himself into bed. Pt was left with all needs met at end of tx. Assessment Current Status: Fair Progress Pt continues to have pain during tx and doesn't improve during tx. Pt fatigues easier this afternoon. PT Short Term Goals Short Term Goals Time Frame: March 18, 2017 Transfers (B,C,W/C) (FIM): 4 Gait (FIM): 4 Distance (FIM): 3=150 ft Gait Assistive Device: FWW PT Meeting/Event Planner Goals Meeting/Event Planner Goals PT Meeting/Event Planner Goals Time Frame: March 26, 2017 Transfers (B,C,W/C) (FIM): 7 Sit to Lying (QC): 6 Lying-Sitting on Side/Bed(QC): 6 Sit to Stand (QC): 6 Rollin Roll Left to Right (QC): 6 Chair/Vvx-qo-Wmkdd Xfer(QC): 6 Car Transfer (QC): 6 Does the Patient Walk: Yes Gait (FIM): 6 Gait distance (FIM): 3=150 ft Walk 10 feet (QC): 6 Walk 10ft-Uneven Surface(QC): 6 Walk 50ft with 2 Turns (QC): 6 Walk 150 ft (QC): 6 Gait Assistive Device: FWW Does the Pt use WC or Scooter?: No Stairs (FIM): 5 # of Steps: 8 1 Step (curb) (QC): 6 4 Steps (QC): 6 12 Steps (QC): 88 Picking up an Object (QC): 88 PT Plan Problem List Problem List: Activity Tolerance, Functional Strength, Safety, Balance, Gait, Transfer Treatment/Plan Treatment Plan: Continue Plan of Care Treatment Plan: Bed Mobility, Education, Functional Activity Daniel, Functional Strength, Group Therapy, Gait, Safety, Therapeutic Exercise, Transfers Treatment Duration: March 26, 2017 Visits Per Week: 10-15 Minutes/Day (M-F): 60-90 Minutes/Day (Sat/Meredith): prn Safety Risks/Education Patient Education: Gait Training, Transfer Techniques, Correct Positioning, Safety Issues Teaching Recipient: Patient Teaching Methods: Discussion Response to Teaching: Verbalize Understanding Time/GCodes Time In: 1250 Time Out: 1320 Total Billed Treatment Time: 30 Total Billed Treatment visit, GT (20m) & FA (10m) RASHMI OLIVER PTA March 16, 2017 13:37
[2017-03-16 15:04] LABS: ALANINE AMINOTRANSFERASE 44 U/L (0-55); ALBUMIN 3.9 G/DL (3.2-4.5); ANION GAP 11 MMOL/L (5-14); ASPARTATE AMINO TRANSFERASE 36 U/L (5-34); BILIRUBIN,TOTAL 0.7 MG/DL (0.1-1.0); BLOOD UREA NITROGEN 19 MG/DL (7-18); BUN/CREATININE RATIO 18; CALCIUM 9.6 MG/DL (8.5-10.1); CARBON DIOXIDE 25 MMOL/L (21-32); CHLORIDE 104 MMOL/L (98-107); CREATININE SERUM 1.03 MG/DL (0.60-1.30); GFR ESTIMATED > 60; GLUCOSE 151 MG/DL (70-105); POTASSIUM 4.3 MMOL/L (3.6-5.0); SODIUM 140 MMOL/L (135-145); TOTAL PROTEIN 6.7 G/DL (6.4-8.2)
[2017-03-16] MEDS: CATHETER FLUSH 10 ML SYR IV PRN (15:54)
[2017-03-16] MEDS: ALFUZOSIN HCL 10 MG TAB (UROXATRAL) PO SCH (16:39)
[2017-03-16 19:14] VITALS: BP 110/58
[2017-03-16] MEDS: TEMAZEPAM 15 MG (RESTORIL) CAP PO SCH (20:40)
[2017-03-16] MEDS: OLANZapine 2.5 MG (ZyPREXA) TAB PO SCH (20:40)
[2017-03-16] MEDS: GABAPENTIN 100 MG (NEURONTIN) CAP PO SCH (20:41)
[2017-03-16] MEDS: LORATADINE (CLARITIN) 10 MG TAB PO SCH (20:41)
[2017-03-16] MEDS: eZETimibe 10 MG (ZETIA) TABLET PO SCH (20:41)
[2017-03-16] MEDS: SIMvastatin 40 MG (ZOCOR) TAB PO SCH (20:43)
[2017-03-17] MEDS: oxyCODONE/APAP 10/325MG (PERCOCET 10) TABLET PO PRN ×4 (02:36→20:58)
[2017-03-17] MEDS: inSUlin ASPART (NovoLOG) 1 UNIT/0.01 ML (CHARGE PER UNIT) SC SCH ×4 (05:11→20:55)
[2017-03-17 05:21] VITALS: BP 129/71
[2017-03-17] MEDS: ISOSORBIDE MONONITRATE 60 MG (IMDUR) TAB PO SCH ×2 (06:06→16:42)
[2017-03-17] MEDS: PANTOPRAZOLE 40 MG (PROTONIX) TAB PO SCH (06:06)
[2017-03-17] MEDS: ENOXAPARIN 30 MG/0.3 ML (LOVENOX) SYR SC SCH ×2 (06:06→18:48)
[2017-03-17] MEDS: CATHETER FLUSH 10 ML SYR IV PRN (06:07)
--- NOTE | 2017-03-17 07:43 | Progress Note-Urology ---
Progress Note-Urology Progress Notes/Assess & Plan Progress/Assessment & Plan VOIDED SOME THIS AM PLAN CHECK BLADDER SCAN PVR Final Diagnosis URINE RETENTION ALBERT KNOTT MD March 17, 2017 7:43 am
[2017-03-17] MEDS: RT-ALBUTEROL/IPRATROPIUM 3 ML (DUONEB) VIAL INH SCH ×4 (07:44→19:21)
[2017-03-17] MEDS: RT-FLUTICASONE 110 MCG (FLOVENT) PER PUFF INH SCH ×2 (07:50→19:21)
[2017-03-17] MEDS: PIOGLITAZONE 30MG (ACTOS) TAB PO SCH (08:33)
[2017-03-17] MEDS: CLOPIDOGREL 75 MG (PLAVIX) TABLET PO SCH (08:33)
[2017-03-17] MEDS: ASPIRIN E.C. 81 MG (ECOTRIN) TAB PO SCH (08:33)
[2017-03-17] MEDS: LORazepam 1 MG (ATIVAN) TAB PO SCH ×2 (08:33→20:54)
[2017-03-17] MEDS: FLUoxetine HCL 20 MG (PROzac) CAP PO SCH (08:34)
[2017-03-17] MEDS: IBUPROFEN TABLET 200 MG TAB PO SCH (08:35)
[2017-03-17] MEDS: PHENYTOIN 100 MG (DILANTIN) CAP PO SCH ×2 (08:35→20:54)
[2017-03-17] MEDS: SENNA W/DOCUSATE (SENOKOT S) TABLET PO SCH ×2 (08:36→20:55)
[2017-03-17] MEDS: NICOTINE 21 MG (NICODERM) PATCH TD SCH (09:27)
[2017-03-17] MEDS: NICOTINE PATCH REMOVAL TP SCH (09:27)
[2017-03-17] MEDS: TIMOLOL MALEATE 0.5% 5 ML (TIMOPTIC) BTL OU SCH ×2 (09:29→20:53)
[2017-03-17] MEDS: BETHANECHOL 25 MG (URECHOLINE) TAB PO SCH ×4 (09:31→20:54)
[2017-03-17] MEDS: RAMIPRIL 5 MG (ALTACE) CAP PO SCH (11:57)
--- NOTE | 2017-03-17 13:00 | Occupational Ther Daily Note ---
OT Current Status-Daily Note Subjective Pt alert, sitting in recliner. Pt agreed to therapy. No c/o pain, hip feeling stiff. Mental Status/Objective Patient Orientation: Person, Place, Time, Situation Functional [place] Measure 0=Not Assessed/NA 4=Minimal Assistance 1=Total Assistance 5=Supervision or Setup 2=Maximal Assistance 6=Modified [place] 3=Moderate Assistance 7=Complete [place] Attachments: IV ADL-Treatment Pt ambulated into bathroom with CGA and transferred into shower using FWW, grabbars and shower bench with SBA. Using shower bench, hand held shower and grabbars pt is able to complete bathing with SBA. After set up, pt was able to complete dressing with SBA. Close SBA when pt stands to hike pants over hips for safety, decreased balance. Pt utilizes AE for donning/doffing lower body clothing. Pt is able to complete stand pivot transfer from w/c to bed by self. Functional [place] Measure 0=Not Assessed/NA 4=Minimal Assistance 1=Total Assistance 5=Supervision or Setup 2=Maximal Assistance 6=Modified [place] 3=Moderate Assistance 7=Complete IndependenceIRFPAI Quality Coding Scale 6 Independent with activity with or without an assistive device 5 Patient requires set up or clean up by helper. Patient completes activity by themselves 4 Supervision or touching assist (CGA). [place] provide cues , steadying assist 3 The helper provides less than half the effort to complete the activity 2 The helper provides more than half the effort to complete the activity 1 Dependent. The helper does all the effort to complete an activity 7 Patient refused to complete or attempt activity 9 The patient did not perform the activity before the current illness or injury 88 Not attempted due to Medical conditions or safety concerns Eating (FIM): 6 Eating (QC): 6 Grooming (FIM): 6 Oral Hygiene (QC): 6 Bathing (FIM): 5 Bathing Location: L Arm, R Arm, L Upper Leg, R Upper Leg, L Lower Leg ( including foot), R Lower Leg (including foot), Chest, Abdomen, Buttocks, Perineal Area Shower/Bathe Self (QC): 5 Upper Body (FIM): 5 Upper Body Dressing (QC): 5 Lower Body Dressing (FIM): 5 Lower Body Dressing (QC): 4 On/Off Footwear (QC): 5 Transfers (B, C, W/C) (FIM): 5 Shower Transfer(FIM): 5 Other Treatment Pt ambulated to therapy gym with CGA for safety with FWW. Pt's R LE tends to give out. Pt then completed arm bike duration 15 min at 15 [place]head resistance with 2 breaks to increase strength and activity tolerance for daily functional tasks. After therapy, pt lying in bed with call light/phone in reach. All needs met in room. OT Short Term Goals Short Term Goals Time Frame: March 18, 2017 Bathing(FIM): 4 Lower Body Dressing(FIM): 3 Toileting(FIM): 3 Transfers (B,C,W/C) (FIM): 4 Toilet/Commode Transfer(FIM): 4 1=Demonstrate adherence to instructed precautions during ADL tasks. 2=Patient will verbalize/demonstrate understanding of assistive devices/ modifications for ADL. 3=Patient will improve strength/tolerance for activity to enable patient to perform ADL's. OT Skilled Nursing Goals Fire Protection Inspector Goals Time Frame: April 01, 2017 Eating (FIM): 5 Eating (QC): 6 Groomin Oral Hygiene (QC): 6 Bathing(FIM): 5 Shower/Bathe Self (QC): 4 Upper Body Dressing(FIM): 5 Upper Body Dressing (QC): 4 Lower Body Dressing(FIM): 5 Lower Body Dressing (QC): 4 On/Off Footwear (QC): 5 Toileting(FIM): 4 Toileting Hygiene (QC): 6 Toilet/Commode Transfer(FIM): 6 Toilet/Commode Transfer (QC): 6 Shower Transfer(FIM): 5 Comprehension(FIM): 5 Expression (FIM): 5 Social Interaction(FIM): 4 Problem Solving(FIM): 4 Additional Goals: 1-Demonstrate ADL Tasks, 2-Verbalize Understanding, 3- ImproveStrength/Daniel 1=Demonstrate adherence to instructed precautions during ADL tasks. 2=Patient will verbalize/demonstrate understanding of assistive devices/ modifications for ADL. 3=Patient will improve strength/tolerance for activity to enable patient to perform ADL's. OT Education/Plan Problem List/Assessment Pt to benefit from skilled OT intervention for ADL training, transfers, strengthening, adaptive equipment training, and home safety education to increase level of independence and allow safe return home. Discharge Recommendations Plan/Recommendations: Continue POC Treatment Plan/Plan of Care Patient would benefit from OT for education, treatment and training to promote independence in ADL's, mobility, safety and/or upper extremity function for ADL' s. Plan of Care: ADL Retraining, Functional Mobility, Group Exercise/Act as Ind, UE Funct Exercise/Act Treatment Duration: April 01, 2017 Visits Per Week: 10-12 Minutes/Day (M-F): 60-90 Minutes/Day (Sat/Meredith): PRN Agreement: Yes Rehab Potential: Good Time/GCodes Start Time: 09:30 Stop Time: 11:00 Total Time Billed (hr/min): 90 Billed Treatment Time 1 visit-EX 2 (30 min) ADL 4 (60 min) KARAN BILLS March 17, 2017 13:00
--- NOTE | 2017-03-17 14:23 | Physical Therapy Daily Note ---
PT Daily Note-Current Subjective Pt laying Supine in bed upon arrival. Pt reports still having pain at 8/10 in L hip and radiates down L thigh. Pt agrees to PT to help work on strength and workout tightness on LLE. Pain Numeric Pain Scale: 8 Location: Left Location Body Site: Hip Pain Description: Ache, Tightness Mental Status Patient Orientation: Person, Place, Situation Transfers Functional [place] Measure 0=Not Assessed/NA 4=Minimal Assistance 1=Total Assistance 5=Supervision or Setup 2=Maximal Assistance 6=Modified [place] 3=Moderate Assistance 7=Complete IndependenceIRFPAI Quality Coding Scale 6 Independent with activity with or without an assistive device 5 Patient requires set up or clean up by helper. Patient completes activity by themselves 4 Supervision or touching assist (CGA). [place] provide cues , steadying assist 3 The helper provides less than half the effort to complete the activity 2 The helper provides more than half the effort to complete the activity 1 Dependent. The helper does all the effort to complete an activity 7 Patient refused to complete or attempt activity 9 The patient did not perform the activity before the current illness or injury 88 Not attempted due to Medical conditions or safety concerns Scootin Rollin Roll Left to Right (QC): 5 Supine to/from Sit: 4 Sit to/from Stand: 4 Sit to Lying (QC): 4 Sit to Stand (QC): 4 Weight Bearing Weight Bearing Restriction: Full Weight Bearing Location Restriction: LE Bilateral Gait Training Does the Patient Walk?: Yes Distance (FIM): 3=150 ft Distance: 250' Walk 10 feet (QC): 4 Walk 50 ft with 2 Turns(QC): 4 Walk 150 ft (QC): 4 Gait Level of Assist: 4 Gait Persons Needed: 1 Gait Assistive Device: FWW Pt walks with slow and tight LLE. Pt walks with slight antalgic gait pattern. Wheelchair Training Does the Pt Use a Wheelchair?: No Exercises Seated Therapy Exercises: Ankle pumps, Long arc quads, Hip flexion, Kicking activity Seated Reps: 15 NuStep Minutes: 14 NuStep Workload: 2 Treatments Pt transfers at CGA-Min A using FWW. Pt ambulates using FWW at [facility] in Therapy Commons. Pt uses NuStep and Seated Ex to increase strength and activity tolerance in aid with balance and endurance during upright tasks. Pt returns to room to rest in bed at end of tx with all needs met. Assessment Current Status: Fair Progress Pt continues to fatigues and need rest breaks. Pt needs reminders to stay on task while talking with PT. PT Short Term Goals Short Term Goals Time Frame: March 18, 2017 Transfers (B,C,W/C) (FIM): 4 Gait (FIM): 4 Distance (FIM): 3=150 ft Gait Assistive Device: FWW PT Care Home Goals Care Home Goals PT Care Home Goals Time Frame: March 26, 2017 Transfers (B,C,W/C) (FIM): 7 Sit to Lying (QC): 6 Lying-Sitting on Side/Bed(QC): 6 Sit to Stand (QC): 6 Rollin Roll Left to Right (QC): 6 Chair/Hfh-hn-Rdiuw Xfer(QC): 6 Car Transfer (QC): 6 Does the Patient Walk: Yes Gait (FIM): 6 Gait distance (FIM): 3=150 ft Walk 10 feet (QC): 6 Walk 10ft-Uneven Surface(QC): 6 Walk 50ft with 2 Turns (QC): 6 Walk 150 ft (QC): 6 Gait Assistive Device: FWW Does the Pt use WC or Scooter?: No Stairs (FIM): 5 # of Steps: 8 1 Step (curb) (QC): 6 4 Steps (QC): 6 12 Steps (QC): 88 Picking up an Object (QC): 88 PT Plan Problem List Problem List: Activity Tolerance, Functional Strength, Balance, Gait, Transfer Treatment/Plan Treatment Plan: Continue Plan of Care Treatment Plan: Bed Mobility, Education, Functional Activity Daniel, Functional Strength, Group Therapy, Gait, Safety, Therapeutic Exercise, Transfers Treatment Duration: March 26, 2017 Visits Per Week: 10-15 Minutes/Day (M-F): 60-90 Minutes/Day (Sat/Meredith): prn Safety Risks/Education Patient Education: Gait Training, Transfer Techniques, Correct Positioning, Safety Issues Teaching Recipient: Patient Teaching Methods: Discussion Response to Teaching: Verbalize Understanding Time/GCodes Time In: 810 Time Out: 910 Total Billed Treatment Time: 60 Total Billed Treatment visit, GT X 2 (30m) , EX (15m) & FA (15m) RASHMI OLIVER EVENT PLANNER March 17, 2017 14:23
--- NOTE | 2017-03-17 15:48 | Physical Therapy Daily Note ---
PT Daily Note-Current Subjective Pt is laying Supine in bed upon arrival. Pt agrees to PT. Pain Numeric Pain Scale: 8 Location: Left Location Body Site: Hip Pain Description: Ache, Tightness Mental Status Patient Orientation: Person, Place, Situation Transfers Functional [place] Measure 0=Not Assessed/NA 4=Minimal Assistance 1=Total Assistance 5=Supervision or Setup 2=Maximal Assistance 6=Modified [place] 3=Moderate Assistance 7=Complete IndependenceIRFPAI Quality Coding Scale 6 Independent with activity with or without an assistive device 5 Patient requires set up or clean up by helper. Patient completes activity by themselves 4 Supervision or touching assist ([facility]). [place] provide cues , steadying assist 3 The helper provides less than half the effort to complete the activity 2 The helper provides more than half the effort to complete the activity 1 Dependent. The helper does all the effort to complete an activity 7 Patient refused to complete or attempt activity 9 The patient did not perform the activity before the current illness or injury 88 Not attempted due to Medical conditions or safety concerns Scootin Rollin Roll Left to Right (QC): 5 Supine to/from Sit: 4 Sit to/from Stand: 4 Sit to Lying (QC): 4 Sit to Stand (QC): 4 Weight Bearing Weight Bearing Restriction: Full Weight Bearing Location Restriction: LE Bilateral Gait Training Does the Patient Walk?: Yes Distance (FIM): 3=150 ft Distance: 300' Walk 10 feet (QC): 4 Walk 50 ft with 2 Turns(QC): 4 Walk 150 ft (QC): 4 Gait Level of Assist: 4 Gait Persons Needed: 1 Gait Assistive Device: FWW Pt walks with slow and antalgic gait pattern. Wheelchair Training Does the Pt Use a Wheelchair?: No Treatments Pt transfers using FWW at [facility]. PT assists pt getting socks and shoes on before ambulating for tx. Pt ambulates in Therapy Commons using FWW at [facility]. Pt returns to room and rests at EOB to work on Word Search puzzles. Pt is left with all needs met at end of tx. Assessment Current Status: Fair Progress Pt has improved activity tolerance. Pt still needs rest break during ambulation. PT Short Term Goals Short Term Goals Time Frame: March 18, 2017 Transfers (B,C,W/C) (FIM): 4 Gait (FIM): 4 Distance (FIM): 3=150 ft Gait Assistive Device: FWW PT Automobile Mechanic Motor Goals Residential Goals PT Automobile Mechanic Motor Goals Time Frame: March 26, 2017 Transfers (B,C,W/C) (FIM): 7 Sit to Lying (QC): 6 Lying-Sitting on Side/Bed(QC): 6 Sit to Stand (QC): 6 Rollin Roll Left to Right (QC): 6 Chair/Dja-ru-Dmoyx Xfer(QC): 6 Car Transfer (QC): 6 Does the Patient Walk: Yes Gait (FIM): 6 Gait distance (FIM): 3=150 ft Walk 10 feet (QC): 6 Walk 10ft-Uneven Surface(QC): 6 Walk 50ft with 2 Turns (QC): 6 Walk 150 ft (QC): 6 Gait Assistive Device: FWW Does the Pt use WC or Scooter?: No Stairs (FIM): 5 # of Steps: 8 1 Step (curb) (QC): 6 4 Steps (QC): 6 12 Steps (QC): 88 Picking up an Object (QC): 88 PT Plan Problem List Problem List: Activity Tolerance, Functional Strength, Safety, Balance, Gait, Transfer Treatment/Plan Treatment Plan: Continue Plan of Care Treatment Plan: Bed Mobility, Education, Functional Activity Daniel, Functional Strength, Group Therapy, Gait, Safety, Therapeutic Exercise, Transfers Treatment Duration: March 26, 2017 Visits Per Week: 10-15 Minutes/Day (M-F): 60-90 Minutes/Day (Sat/Meredith): prn Safety Risks/Education Patient Education: Gait Training, Transfer Techniques, Correct Positioning, Safety Issues Teaching Recipient: Patient Teaching Methods: Discussion Response to Teaching: Verbalize Understanding Time/GCodes Time In: 1300 Time Out: 1330 Total Billed Treatment Time: 30 Total Billed Treatment visit, GT (20m) & FA (10m) RASHMI OLIVER PTA March 17, 2017 15:48
[2017-03-17] MEDS: ALFUZOSIN HCL 10 MG TAB (UROXATRAL) PO SCH (17:45)
[2017-03-17 18:55] VITALS: BP 113/51
[2017-03-17] MEDS: SIMvastatin 40 MG (ZOCOR) TAB PO SCH (20:54)
[2017-03-17] MEDS: GABAPENTIN 100 MG (NEURONTIN) CAP PO SCH (20:54)
[2017-03-17] MEDS: OLANZapine 2.5 MG (ZyPREXA) TAB PO SCH (20:54)
[2017-03-17] MEDS: TEMAZEPAM 15 MG (RESTORIL) CAP PO SCH (20:54)
[2017-03-17] MEDS: LORATADINE (CLARITIN) 10 MG TAB PO SCH (20:54)
[2017-03-17] MEDS: eZETimibe 10 MG (ZETIA) TABLET PO SCH (20:54)
[2017-03-18] MEDS: oxyCODONE/APAP 10/325MG (PERCOCET 10) TABLET PO PRN ×5 (01:55→21:05)
[2017-03-18 05:00] VITALS: BP 120/71
[2017-03-18] MEDS: BETHANECHOL 25 MG (URECHOLINE) TAB PO SCH ×4 (06:47→21:03)
[2017-03-18] MEDS: PANTOPRAZOLE 40 MG (PROTONIX) TAB PO SCH (06:47)
[2017-03-18] MEDS: ISOSORBIDE MONONITRATE 60 MG (IMDUR) TAB PO SCH ×2 (06:47→17:00)
[2017-03-18] MEDS: ENOXAPARIN 30 MG/0.3 ML (LOVENOX) SYR SC SCH ×2 (06:47→18:36)
[2017-03-18] MEDS: RT-ALBUTEROL/IPRATROPIUM 3 ML (DUONEB) VIAL INH SCH ×3 (07:11→21:57)
[2017-03-18] MEDS: RT-FLUTICASONE 110 MCG (FLOVENT) PER PUFF INH SCH ×2 (07:11→21:57)
[2017-03-18] MEDS: inSUlin ASPART (NovoLOG) 1 UNIT/0.01 ML (CHARGE PER UNIT) SC SCH ×4 (07:39→21:05)
--- NOTE | 2017-03-18 09:02 | Physical Therapy Daily Note ---
PT Daily Note-Current Subjective Patient is asleep and easily wakes to participate with PT. Pain Numeric Pain Scale: 5-Moderate Pain Location: Left Location Body Site: Hip Pain Description: Ache Mental Status Patient Orientation: Normal For Age Transfers Functional [place] Measure 0=Not Assessed/NA 4=Minimal Assistance 1=Total Assistance 5=Supervision or Setup 2=Maximal Assistance 6=Modified [place] 3=Moderate Assistance 7=Complete IndependenceIRFPAI Quality Coding Scale 6 Independent with activity with or without an assistive device 5 Patient requires set up or clean up by helper. Patient completes activity by themselves 4 Supervision or touching assist (CGA). [place] provide cues , steadying assist 3 The helper provides less than half the effort to complete the activity 2 The helper provides more than half the effort to complete the activity 1 Dependent. The helper does all the effort to complete an activity 7 Patient refused to complete or attempt activity 9 The patient did not perform the activity before the current illness or injury 88 Not attempted due to Medical conditions or safety concerns Transfers (B, C, W/C) (FIM): 5 Scootin Rollin Roll Left to Right (QC): 5 Supine to/from Sit: 6 Sit to/from Stand: 5 Sit to Lying (QC): 5 Sit to Stand (QC): 5 Chair/Vya-wr-Gujhl Xfer(QC): 5 Bed to/from Chair: 5 Car Transfer (QC): 5 Weight Bearing Weight Bearing Restriction: Weight Bearing/Tolerated Location Restriction: L LE Gait Training Does the Patient Walk?: Yes Gait (FIM): 4 Distance (FIM): 3=150 ft Distance: 300' x 2; 200' x 2 Walk 10 feet (QC): 4 Walk 50 ft with 2 Turns(QC): 4 Walk 150 ft (QC): 4 Walking 10ft/uneven surface-QC: 4 Gait Level of Assist: 4 Gait Persons Needed: 1 Gait Assistive Device: FWW antalgic with multiple episodes of left knee "buckling" requiring CGA for safety with gait belt Exercises Supine Ex: Ankle pumps, Quad Set, Heel Slides, Hip abd/add Supine Reps: 20 Seated Therapy Exercises: Ankle pumps, Long arc quads Seated Reps: 20 Standing: Hip Abduction, Hamstring curls, Heel/toe raises, Marching, Mini squats Standing Reps: 20 x 2 sets Assessment Patient progressing with treatment plan. Patient c/o of left LE pain and a "shifting" sensation in thigh. PT consulted physician and RN resulting in an x- ray of left hip. PT Short Term Goals Short Term Goals Time Frame: March 18, 2017 Transfers (B,C,W/C) (FIM): 4 (met 03/18/17) Gait (FIM): 4 (met 03/18/17) Distance (FIM): 3=150 ft Gait Assistive Device: FWW PT Senior Living Goals Editor In Chief Goals PT Editor In Chief Goals Time Frame: March 26, 2017 Transfers (B,C,W/C) (FIM): 7 Sit to Lying (QC): 6 Lying-Sitting on Side/Bed(QC): 6 Sit to Stand (QC): 6 Rollin Roll Left to Right (QC): 6 Chair/Qfp-qn-Divqi Xfer(QC): 6 Car Transfer (QC): 6 Does the Patient Walk: Yes Gait (FIM): 6 Gait distance (FIM): 3=150 ft Walk 10 feet (QC): 6 Walk 10ft-Uneven Surface(QC): 6 Walk 50ft with 2 Turns (QC): 6 Walk 150 ft (QC): 6 Gait Assistive Device: FWW Does the Pt use WC or Scooter?: No Stairs (FIM): 5 # of Steps: 8 1 Step (curb) (QC): 6 4 Steps (QC): 6 12 Steps (QC): 88 Picking up an Object (QC): 88 PT Plan Treatment/Plan Treatment Plan: Continue Plan of Care Treatment Plan: Bed Mobility, Education, Functional Activity Daniel, Functional Strength, Group Therapy, Gait, Safety, Therapeutic Exercise, Transfers Treatment Duration: March 26, 2017 Visits Per Week: 10-15 Minutes/Day (M-F): 60-90 Minutes/Day (Sat/Meredith): prn Time/GCodes Time In: 800 Time Out: 900 Total Billed Treatment Time: 60 Total Billed Treatment 1 visit GT x 2 30 min EX x 2 30 min MINERVA STEWART PT March 18, 2017 09:02
[2017-03-18] MEDS: PIOGLITAZONE 30MG (ACTOS) TAB PO SCH (09:26)
[2017-03-18] MEDS: SENNA W/DOCUSATE (SENOKOT S) TABLET PO SCH ×2 (09:26→21:03)
[2017-03-18] MEDS: IBUPROFEN TABLET 200 MG TAB PO SCH (09:27)
[2017-03-18] MEDS: FLUoxetine HCL 20 MG (PROzac) CAP PO SCH (09:27)
[2017-03-18] MEDS: PHENYTOIN 100 MG (DILANTIN) CAP PO SCH ×2 (09:27→21:03)
[2017-03-18] MEDS: ASPIRIN E.C. 81 MG (ECOTRIN) TAB PO SCH (09:27)
[2017-03-18] MEDS: CLOPIDOGREL 75 MG (PLAVIX) TABLET PO SCH (09:27)
[2017-03-18] MEDS: LORazepam 1 MG (ATIVAN) TAB PO SCH ×2 (09:27→21:03)
[2017-03-18] MEDS: NICOTINE PATCH REMOVAL TP SCH (09:34)
[2017-03-18] MEDS: NICOTINE 21 MG (NICODERM) PATCH TD SCH (09:34)
[2017-03-18] MEDS: TIMOLOL MALEATE 0.5% 5 ML (TIMOPTIC) BTL OU SCH ×2 (09:35→21:10)
--- NOTE | 2017-03-18 10:21 | Occupational Ther Daily Note ---
OT Current Status-Daily Note Subjective Pt alert, sitting in recliner. Pt agreed to therapy. Pt c/o pain in L hip and thigh, nrsg stated he was due for next pain meds in 1 1/2 hrs. Pt completed therapy in room. Mental Status/Objective Patient Orientation: Person, Place, Time, Situation Functional [place] Measure 0=Not Assessed/NA 4=Minimal Assistance 1=Total Assistance 5=Supervision or Setup 2=Maximal Assistance 6=Modified [place] 3=Moderate Assistance 7=Complete [place] Attachments: IV ADL-Treatment Functional [place] Measure 0=Not Assessed/NA 4=Minimal Assistance 1=Total Assistance 5=Supervision or Setup 2=Maximal Assistance 6=Modified [place] 3=Moderate Assistance 7=Complete IndependenceIRFPAI Quality Coding Scale 6 Independent with activity with or without an assistive device 5 Patient requires set up or clean up by helper. Patient completes activity by themselves 4 Supervision or touching assist (CGA). [place] provide cues , steadying assist 3 The helper provides less than half the effort to complete the activity 2 The helper provides more than half the effort to complete the activity 1 Dependent. The helper does all the effort to complete an activity 7 Patient refused to complete or attempt activity 9 The patient did not perform the activity before the current illness or injury 88 Not attempted due to Medical conditions or safety concerns Other Treatment Pt completed UE exercises with medium resistance theraband and 3 # wt's, 3 sets 10 reps each. Pt then completed resistive fine motor exercises with resistive clothespins and resistive pegs. Exercises completed to increase strength and activity tolerance for daily functional tasks. Pt was educated on appropriate body form with exercises and completing breathing to coincide with exercising. Pt was able to go from sit to stand and ambulate to w/c with SBA using FWW. After therapy, pt in care of x-ray techs. OT Short Term Goals Short Term Goals Time Frame: March 18, 2017 Bathing(FIM): 4 Lower Body Dressing(FIM): 3 Toileting(FIM): 3 Transfers (B,C,W/C) (FIM): 4 (met 03/18/17) Toilet/Commode Transfer(FIM): 4 1=Demonstrate adherence to instructed precautions during ADL tasks. 2=Patient will verbalize/demonstrate understanding of assistive devices/ modifications for ADL. 3=Patient will improve strength/tolerance for activity to enable patient to perform ADL's. OT Detention Goals Technical Solutions Consultant Goals Time Frame: April 01, 2017 Eating (FIM): 5 Eating (QC): 6 Groomin Oral Hygiene (QC): 6 Bathing(FIM): 5 Shower/Bathe Self (QC): 4 Upper Body Dressing(FIM): 5 Upper Body Dressing (QC): 4 Lower Body Dressing(FIM): 5 Lower Body Dressing (QC): 4 On/Off Footwear (QC): 5 Toileting(FIM): 4 Toileting Hygiene (QC): 6 Toilet/Commode Transfer(FIM): 6 Toilet/Commode Transfer (QC): 6 Shower Transfer(FIM): 5 Comprehension(FIM): 5 Expression (FIM): 5 Social Interaction(FIM): 4 Problem Solving(FIM): 4 Additional Goals: 1-Demonstrate ADL Tasks, 2-Verbalize Understanding, 3- ImproveStrength/Daniel 1=Demonstrate adherence to instructed precautions during ADL tasks. 2=Patient will verbalize/demonstrate understanding of assistive devices/ modifications for ADL. 3=Patient will improve strength/tolerance for activity to enable patient to perform ADL's. OT Education/Plan Problem List/Assessment Pt to benefit from skilled OT intervention for ADL training, transfers, strengthening, adaptive equipment training, and home safety education to increase level of independence and allow safe return home. Discharge Recommendations Plan/Recommendations: Continue POC Treatment Plan/Plan of Care Patient would benefit from OT for education, treatment and training to promote independence in ADL's, mobility, safety and/or upper extremity function for ADL' s. Plan of Care: ADL Retraining, Functional Mobility, Group Exercise/Act as Ind, UE Funct Exercise/Act Treatment Duration: April 01, 2017 Visits Per Week: 10-12 Minutes/Day (M-F): 60-90 Minutes/Day (Sat/Meredith): PRN Agreement: Yes Rehab Potential: Good Time/GCodes Start Time: 09:00 Stop Time: 10:00 Total Time Billed (hr/min): 60 Billed Treatment Time 1 visit-EX 4 (60 min) KARAN BILLS March 18, 2017 10:21
--- NOTE | 2017-03-18 10:33 | Diagnostic Imaging Report ---
EXAMINATION: Two views of the left hip. INDICATION: Increased left hip pain. FINDINGS: Comparison is made with intraoperative views dated 03/08/2017 with no definite change in the intertrochanteric fracture internal fixation hardware seen. There is interval displacement of the lesser trochanter. There is question of slight decreased angulation between the femoral neck and the femoral shaft. The joint demonstrates normal alignment with no subluxation or dislocation. No new fracture is seen. IMPRESSION: Intertrochanteric fracture status post internal fixation with an intramedullary tanvir and locking screw through the femoral neck. There is interval medial displacement of the lesser trochanter and question of slight decreased angle between the femoral neck and femoral shaft. Orthopedic evaluation is recommended. Dictated by: Dictated on workstation # [id number]
--- NOTE | 2017-03-18 11:43 | Progress Note-Hospitalist ---
Progress Note HPI/CC on Admission CC: Left Hip Fracture recovery in need of in-pt rehab HPI: This is 66yoWM who presents with left hip fracture repair and in need of recovery. He has a hx of seizure disorder and CAD. Patient Interview: Physical exam stable Pt was in PT during visit. Pt was verbal but did not seem concerned with discussing his care. he is more interested in talking to the nurses around him. Pt rates his pain as 10/10 which does not seem possible since it so many days out of repair No seizures reported Reviewed all meds and continued for inpatient rehabilitation Scribed by Sarah Montana under the direct supervision of Dr. Hartman. Progress Notes/Assess & Plan Date Seen 03/18/17 Admission Dx/Process Assessment: Status post left hip fracture repair in need of inpatient rehabilitation Severe urinary retention acute on chronic requiring [place] catheter administration and urology consultation Postop anemia mild did not require transfusion Severe COPD Current smoker Severe and end-stage coronary artery disease Hypertension Vascular dementia Diagonsis/Assessment & Plan Chart Review: No fever Vitals stable Blood sugars satisfactory express clerk: Pt complained about hip popping so pt had an X-ray performed. Pt has been okay otherwise. Orthopedic Surgery will be informed about recent X-ray. Patient Interview: Pt is still experiencing hip pain. Pt confirms receiving breathing treatments. Pt seems agitated with the frequency of the treatments and would like to have less of them. Physical exam stable. Pt confirms having BMs No fever, vital signs stable, pleasant, oriented 3, chronically debilitated Regular rate rhythm, clear to auscultation bilaterally diminished in the bases No edema Assessment: Status post hip fracture sustained in fall after seizure Chronic seizure disorder none since admission Severe coronary artery disease status post 16 stents total Chronic COPD with smoking status active Neurogenic bladder managed by urology likely will need suprapubic catheter Status post severe constipation resolution Plan: Continue PT In-pt rehab Seizure precautions but on all home meds Monitor urinary retention Reduce breathing treatments to BID Scribed by Sarah Montana under the direct supervision of Dr. Hartman. CARLOS HARTMAN DO March 18, 2017 11:43
[2017-03-18] MEDS: RAMIPRIL 5 MG (ALTACE) CAP PO SCH (11:48)
--- NOTE | 2017-03-18 15:23 | Therapy Group Daily Note ---
Therapy Daily Group Note Exercises LE Seated Exercise, Sit to/from Stand, UE Exercise Other/Notes Pt ambulated to OT/PT group with CGA using FWW, one LOB. Group consisted of introductions, socialization, group discussions and working together, 'Family Feud" style activity, UE/LE seated exercises and inspirational words for other pt's. Pt contributed to discussions, had pertinent answers to questions. Pt was able to completed seat LE/UE exercises and fine motor skills, tolerated well. Pt ambulated with CGA using FWW to room. After therapy, lying in bed with call light/phone in reach. All needs met in room. Start Time: 13:00 Stop Time: 14:15 Total Billed Treatment Time: 75 Total Billed Treatment 1-GRP KARAN BILLS March 18, 2017 15:23
[2017-03-18] MEDS: ALFUZOSIN HCL 10 MG TAB (UROXATRAL) PO SCH (17:00)
[2017-03-18 17:52] VITALS: BP 108/71
[2017-03-18] MEDS: OLANZapine 2.5 MG (ZyPREXA) TAB PO SCH (21:03)
[2017-03-18] MEDS: SIMvastatin 40 MG (ZOCOR) TAB PO SCH (21:03)
[2017-03-18] MEDS: eZETimibe 10 MG (ZETIA) TABLET PO SCH (21:03)
[2017-03-18] MEDS: TEMAZEPAM 15 MG (RESTORIL) CAP PO SCH (21:03)
[2017-03-18] MEDS: LORATADINE (CLARITIN) 10 MG TAB PO SCH (21:03)
[2017-03-18] MEDS: GABAPENTIN 100 MG (NEURONTIN) CAP PO SCH (21:03)
[2017-03-19 05:00] VITALS: BP 130/66
[2017-03-19] MEDS: inSUlin ASPART (NovoLOG) 1 UNIT/0.01 ML (CHARGE PER UNIT) SC SCH ×4 (06:03→21:05)
[2017-03-19] MEDS: BETHANECHOL 25 MG (URECHOLINE) TAB PO SCH ×4 (06:07→21:05)
[2017-03-19] MEDS: ISOSORBIDE MONONITRATE 60 MG (IMDUR) TAB PO SCH ×2 (06:07→16:58)
[2017-03-19] MEDS: PANTOPRAZOLE 40 MG (PROTONIX) TAB PO SCH (06:07)
[2017-03-19] MEDS: ENOXAPARIN 30 MG/0.3 ML (LOVENOX) SYR SC SCH ×2 (06:07→18:06)
[2017-03-19 07:23] LABS: ALANINE AMINOTRANSFERASE 32 U/L (0-55); ALBUMIN 3.6 G/DL (3.2-4.5); ANION GAP 10 MMOL/L (5-14); ASPARTATE AMINO TRANSFERASE 23 U/L (5-34); BILIRUBIN,TOTAL 0.5 MG/DL (0.1-1.0); BLOOD UREA NITROGEN 16 MG/DL (7-18); BUN/CREATININE RATIO 21; CALCIUM 9.1 MG/DL (8.5-10.1); CARBON DIOXIDE 24 MMOL/L (21-32); CHLORIDE 105 MMOL/L (98-107); CREATININE SERUM 0.78 MG/DL (0.60-1.30); GFR ESTIMATED > 60; GLUCOSE 157 MG/DL (70-105); POTASSIUM 3.7 MMOL/L (3.6-5.0); SODIUM 139 MMOL/L (135-145); TOTAL PROTEIN 6.2 G/DL (6.4-8.2)
[2017-03-19] MEDS: RT-FLUTICASONE 110 MCG (FLOVENT) PER PUFF INH SCH ×2 (07:56→20:04)
[2017-03-19] MEDS: RT-ALBUTEROL/IPRATROPIUM 3 ML (DUONEB) VIAL INH SCH ×2 (07:56→20:04)
[2017-03-19] MEDS: ASPIRIN E.C. 81 MG (ECOTRIN) TAB PO SCH (08:31)
[2017-03-19] MEDS: SENNA W/DOCUSATE (SENOKOT S) TABLET PO SCH ×2 (08:31→21:04)
[2017-03-19] MEDS: CLOPIDOGREL 75 MG (PLAVIX) TABLET PO SCH (08:31)
[2017-03-19] MEDS: IBUPROFEN TABLET 200 MG TAB PO SCH (08:31)
[2017-03-19] MEDS: FLUoxetine HCL 20 MG (PROzac) CAP PO SCH (08:31)
[2017-03-19] MEDS: PIOGLITAZONE 30MG (ACTOS) TAB PO SCH (08:31)
[2017-03-19] MEDS: PHENYTOIN 100 MG (DILANTIN) CAP PO SCH ×2 (08:31→21:05)
[2017-03-19] MEDS: NICOTINE 21 MG (NICODERM) PATCH TD SCH (08:32)
[2017-03-19] MEDS: LORazepam 1 MG (ATIVAN) TAB PO SCH ×2 (08:32→21:05)
[2017-03-19] MEDS: NICOTINE PATCH REMOVAL TP SCH (08:32)
[2017-03-19] MEDS: oxyCODONE/APAP 10/325MG (PERCOCET 10) TABLET PO PRN ×3 (08:35→21:05)
[2017-03-19] MEDS: TIMOLOL MALEATE 0.5% 5 ML (TIMOPTIC) BTL OU SCH ×2 (08:36→21:08)
--- NOTE | 2017-03-19 09:53 | Occupational Ther Daily Note ---
OT Current Status-Daily Note Subjective Pt alert, lying in bed. Pt agreed to therapy. Pt stated that they are changing times on his pain meds and he is happy about it. Mental Status/Objective Patient Orientation: Person, Place, Time, Situation Functional [place] Measure 0=Not Assessed/NA 4=Minimal Assistance 1=Total Assistance 5=Supervision or Setup 2=Maximal Assistance 6=Modified [place] 3=Moderate Assistance 7=Complete [place] ADL-Treatment Functional [place] Measure 0=Not Assessed/NA 4=Minimal Assistance 1=Total Assistance 5=Supervision or Setup 2=Maximal Assistance 6=Modified [place] 3=Moderate Assistance 7=Complete IndependenceIRFPAI Quality Coding Scale 6 Independent with activity with or without an assistive device 5 Patient requires set up or clean up by helper. Patient completes activity by themselves 4 Supervision or touching assist (CGA). [place] provide cues , steadying assist 3 The helper provides less than half the effort to complete the activity 2 The helper provides more than half the effort to complete the activity 1 Dependent. The helper does all the effort to complete an activity 7 Patient refused to complete or attempt activity 9 The patient did not perform the activity before the current illness or injury 88 Not attempted due to Medical conditions or safety concerns Grooming (FIM): 6 (Sitting at sink in w/c, pt is able to complete grooming skills.) Bathing (FIM): 5 (Using shower bench, hand held shower and grabbars pt is able to complete bathing with SBA when standing to cleanse buttocks.) Bathing Location: L Arm, R Arm, L Upper Leg, R Upper Leg, L Lower Leg ( including foot), R Lower Leg (including foot), Chest, Abdomen, Buttocks, Perineal Area Upper Body (FIM): 5 (Pt is able to complete upper body dressing after setup.) Lower Body Dressing (FIM): 5 (Using AE, pt is able to complete lower body dressing with SBA when hiking pants over hips for safety, decreased balance.) Toileting (FIM): 5 (SBA when standing to manipulate clothing, cleanses by self. ) Transfers (B, C, W/C) (FIM): 5 (SBA using FWW.) Toilet/Commode Transfer (FIM): 5 (SBA using grabbars and BSC) Shower Transfer(FIM): 5 (Using FWW, shower bench and grabbars pt is able to complete with SBA.) Pt is able to complete ADLs with supervision. Pt has demonstrated LOB with completing standing dynamic tasks. After therapy, pt lying in bed with call light/phone in reach. All needs met in room. OT Short Term Goals Short Term Goals Time Frame: March 18, 2017 Bathing(FIM): 4 Lower Body Dressing(FIM): 3 Toileting(FIM): 3 Transfers (B,C,W/C) (FIM): 4 (met 03/18/17) Toilet/Commode Transfer(FIM): 4 1=Demonstrate adherence to instructed precautions during ADL tasks. 2=Patient will verbalize/demonstrate understanding of assistive devices/ modifications for ADL. 3=Patient will improve strength/tolerance for activity to enable patient to perform ADL's. OT Air Analyst Goals Air Analyst Goals Time Frame: April 01, 2017 Eating (FIM): 5 Eating (QC): 6 Groomin Oral Hygiene (QC): 6 Bathing(FIM): 5 Shower/Bathe Self (QC): 4 Upper Body Dressing(FIM): 5 Upper Body Dressing (QC): 4 Lower Body Dressing(FIM): 5 Lower Body Dressing (QC): 4 On/Off Footwear (QC): 5 Toileting(FIM): 4 Toileting Hygiene (QC): 6 Toilet/Commode Transfer(FIM): 6 Toilet/Commode Transfer (QC): 6 Shower Transfer(FIM): 5 Comprehension(FIM): 5 Expression (FIM): 5 Social Interaction(FIM): 4 Problem Solving(FIM): 4 Additional Goals: 1-Demonstrate ADL Tasks, 2-Verbalize Understanding, 3- ImproveStrength/Daniel 1=Demonstrate adherence to instructed precautions during ADL tasks. 2=Patient will verbalize/demonstrate understanding of assistive devices/ modifications for ADL. 3=Patient will improve strength/tolerance for activity to enable patient to perform ADL's. OT Education/Plan Problem List/Assessment Pt to benefit from skilled OT intervention for ADL training, transfers, strengthening, adaptive equipment training, and home safety education to increase level of independence and allow safe return home. Discharge Recommendations Plan/Recommendations: Continue POC Treatment Plan/Plan of Care Patient would benefit from OT for education, treatment and training to promote independence in ADL's, mobility, safety and/or upper extremity function for ADL' s. Plan of Care: ADL Retraining, Functional Mobility, Group Exercise/Act as Ind, UE Funct Exercise/Act Treatment Duration: April 01, 2017 Visits Per Week: 10-12 Minutes/Day (M-F): 60-90 Minutes/Day (Sat/Meredith): PRN Agreement: Yes Rehab Potential: Good Time/GCodes Start Time: 08:50 Stop Time: 09:50 Total Time Billed (hr/min): 60 Billed Treatment Time 1 visit-ADL 4 (60 min) KARAN BILLS March 19, 2017 09:53
--- NOTE | 2017-03-19 11:03 | Physical Therapy Daily Note ---
PT Daily Note-Current Subjective Agreeable to PT. Reports he feels he will be ready for discharge next week. Pain Numeric Pain Scale: 8 Location: Left Location Body Site: Hip Pain Description: Ache Comment: took pain meds prior to therapy Mental Status Patient Orientation: Person, Place, Time, Situation Transfers Functional [place] Measure 0=Not Assessed/NA 4=Minimal Assistance 1=Total Assistance 5=Supervision or Setup 2=Maximal Assistance 6=Modified [place] 3=Moderate Assistance 7=Complete IndependenceIRFPAI Quality Coding Scale 6 Independent with activity with or without an assistive device 5 Patient requires set up or clean up by helper. Patient completes activity by themselves 4 Supervision or touching assist (CGA). [place] provide cues , steadying assist 3 The helper provides less than half the effort to complete the activity 2 The helper provides more than half the effort to complete the activity 1 Dependent. The helper does all the effort to complete an activity 7 Patient refused to complete or attempt activity 9 The patient did not perform the activity before the current illness or injury 88 Not attempted due to Medical conditions or safety concerns Transfers (B, C, W/C) (FIM): 5 Supine to/from Sit: 5 Sit to/from Stand: 5 Practiced sit to from stand transfers 2 sets of 5. Toilet transfer with SBA. Weight Bearing Weight Bearing Restriction: Weight Bearing/Tolerated Location Restriction: L LE Gait Training Does the Patient Walk?: Yes Gait (FIM): 4 (CGA at times. SBA at times. ) Distance (FIM): 3=150 ft Distance: 200 ft, 150 ft x 2 Gait Assistive Device: FWW Slightly unsteady gait and requires CGA at times for safety. no michael LOB episodes. Stair Training Stair Training: Handrails/: 2 handrails Stairs (FIM): 2 #of Steps: 8 Stairs: Pattern: Step to Level of Assist: 4 (CGA) Skilled cues and education on sequencing on stairs. Exercises NuStep Minutes: 15 (to promote LE strength and functional activity tolerance for improved indep level of transfers and gait.) Assessment Current Status: Good Progress Pt is making functional progress towards goals. PT Short Term Goals Short Term Goals Time Frame: March 18, 2017 Transfers (B,C,W/C) (FIM): 4 (met 03/18/17) Gait (FIM): 4 (met 03/18/17) Distance (FIM): 3=150 ft Gait Assistive Device: FWW PT Residential Goals Residential Goals PT Residential Goals Time Frame: March 26, 2017 Transfers (B,C,W/C) (FIM): 7 Sit to Lying (QC): 6 Lying-Sitting on Side/Bed(QC): 6 Sit to Stand (QC): 6 Rollin Roll Left to Right (QC): 6 Chair/Noi-nw-Bttvg Xfer(QC): 6 Car Transfer (QC): 6 Does the Patient Walk: Yes Gait (FIM): 6 Gait distance (FIM): 3=150 ft Walk 10 feet (QC): 6 Walk 10ft-Uneven Surface(QC): 6 Walk 50ft with 2 Turns (QC): 6 Walk 150 ft (QC): 6 Gait Assistive Device: FWW Does the Pt use WC or Scooter?: No Stairs (FIM): 5 # of Steps: 8 1 Step (curb) (QC): 6 4 Steps (QC): 6 12 Steps (QC): 88 Picking up an Object (QC): 88 PT Plan Problem List Problem List: Activity Tolerance, Functional Strength, Safety, Balance, Gait, Transfer, Bed Mobility Treatment/Plan Treatment Plan: Continue Plan of Care Treatment Plan: Bed Mobility, Education, Functional Activity Daniel, Functional Strength, Group Therapy, Gait, Safety, Therapeutic Exercise, Transfers Treatment Duration: March 26, 2017 Visits Per Week: 10-15 Minutes/Day (M-F): 60-90 Minutes/Day (Sat/Meredith): prn Safety Risks/Education Patient Education: Steps Teaching Recipient: Patient Teaching Methods: Demonstration, Discussion Response to Teaching: Reinforcement Needed Discharge Recommendations Therapy D/C Recommendations: Physical Therapy Home Care Time/GCodes Time In: 1000 Time Out: 1100 Total Billed Treatment Time: 60 Total Billed Treatment visit GT 40 EX 20 KARAN GAYLE PT March 19, 2017 11:03
[2017-03-19] MEDS: RAMIPRIL 5 MG (ALTACE) CAP PO SCH (11:48)
--- NOTE | 2017-03-19 13:42 | PM & R (SOAP) Progress Note ---
Subjective Subjective/Events-last exam Patient was seen in his room this AM Patient c/o breakthrough pain Discussed with RN Will increase dose of Oxycodone-see orders Patient SBA for transfers Appreciate DR boo note Review of Systems Musculoskeletal: leg pain Objective Exam Last Set of Vital Signs Vital Signs Date Time Temp Pulse Resp B/P (MAP) Pulse Ox O2 Delivery O2 Flow Rate FiO2 03/19/17 07:56 92 03/19/17 05:00 98.4 85 20 130/66 03/18/17 05:00 Room Air Capillary Refill : Less Than 3 Seconds I&O Intake and Output 03/19/17 00:00 Intake Total 1410 ml Output Total 1450 ml Balance -40 ml Intake Oral 1410 ml Output Urine Total 1450 ml Bladder Scan Volume Amount 576 ml 536 ml 248 ml 288 ml 450 ml General: Alert, Oriented X3, Cooperative, No Acute Distress HEENT: Atraumatic, PERRLA, EOMI, Mucous Memb Moist/[place] Neck: Supple, No JVD Lungs: Clear to Auscultation Heart: Regular Rate Abdomen: Normal Bowel Sounds, Soft, No Tenderness Extremities: Other (trace edema left ankle Hip dressing in place) Neuro: Other (strength limited left leg s/p frx) Results Lab Laboratory Tests 03/16/17 14:25: Sodium Level 140, Potassium Level 4.3, Chloride Level 104, Carbon Dioxide Level 25, Anion Gap 11, Blood Urea Nitrogen 19H, Creatinine 1.03, Estimat Glomerular Filtration Rate > 60, BUN/Creatinine Ratio 18, Glucose Level 151H, Calcium Level 9.6, Total Bilirubin 0.7, Aspartate Amino Transf (AST/SGOT) 36H, Alanine Aminotransferase (ALT/SGPT) 44, Alkaline Phosphatase 185H, Total Protein 6.7, Albumin 3.9 03/16/17 15:57: Glucometer 163H 03/16/17 20:41: Glucometer 189H 03/17/17 05:03: Glucometer 179H 03/17/17 10:47: Glucometer 171H 03/17/17 15:59: Glucometer 145H 03/17/17 20:50: Glucometer 154H 03/18/17 06:35: Glucometer 176H 03/18/17 11:10: Glucometer 181H 03/18/17 16:28: Glucometer 184H 03/18/17 20:45: Glucometer 148H 03/19/17 05:43: Glucometer 161H 03/19/17 05:44: Sodium Level 139, Potassium Level 3.7, Chloride Level 105, Carbon Dioxide Level 24, Anion Gap 10, Blood Urea Nitrogen 16, Creatinine 0.78, Estimat Glomerular Filtration Rate > 60, BUN/Creatinine Ratio 21, Glucose Level 157H, Calcium Level 9.1, Total Bilirubin 0.5, Aspartate Amino Transf (AST/SGOT) 23, Alanine Aminotransferase (ALT/SGPT) 32, Alkaline Phosphatase 162H, Total Protein 6.2L, Albumin 3.6 03/19/17 11:06: Glucometer 154H Assessment/Plan Assessment s/p left hip repair COPD Tobaccoism HTN Vascular dementia Plan Continue PT/OT/Pain management See orders F/U with DR Hartman et al RON HERNANDEZ MD March 19, 2017 13:42
--- NOTE | 2017-03-19 14:04 | Therapy Group Daily Note ---
Therapy Daily Group Note Other/Notes Pt. attended group PT OT lunch session. Pt. ambulated to/from with FWW SBA to CGA. This pt. was very social and initiated much conversation mostly about family history and local legends and rogelio. This greatly interested almost every person at the lunch group and created lots of fun, laughs and involvement. 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 Pt. required SBA to room and then got on toilet. call button at hand Start Time: 12:00 Stop Time: 13:15 Total Billed Treatment Time: 75 Total Billed Treatment 1,GRP TOM CASTILLO CLERICAL SECRETARY March 19, 2017 14:04
[2017-03-19] MEDS: ALFUZOSIN HCL 10 MG TAB (UROXATRAL) PO SCH (16:58)
[2017-03-19 18:25] VITALS: BP 124/69
[2017-03-19] MEDS: LORATADINE (CLARITIN) 10 MG TAB PO SCH (21:04)
[2017-03-19] MEDS: OLANZapine 2.5 MG (ZyPREXA) TAB PO SCH (21:04)
[2017-03-19] MEDS: GABAPENTIN 100 MG (NEURONTIN) CAP PO SCH (21:04)
[2017-03-19] MEDS: eZETimibe 10 MG (ZETIA) TABLET PO SCH (21:04)
[2017-03-19] MEDS: TEMAZEPAM 15 MG (RESTORIL) CAP PO SCH (21:05)
[2017-03-19] MEDS: SIMvastatin 40 MG (ZOCOR) TAB PO SCH (21:05)
[2017-03-20] MEDS: oxyCODONE/APAP 10/325MG (PERCOCET 10) TABLET PO PRN ×3 (04:41→21:12)
[2017-03-20 06:00] VITALS: BP 125/72
[2017-03-20] MEDS: ENOXAPARIN 30 MG/0.3 ML (LOVENOX) SYR SC SCH ×2 (06:05→18:58)
[2017-03-20] MEDS: PANTOPRAZOLE 40 MG (PROTONIX) TAB PO SCH (06:05)
[2017-03-20] MEDS: inSUlin ASPART (NovoLOG) 1 UNIT/0.01 ML (CHARGE PER UNIT) SC SCH ×4 (06:05→20:49)
[2017-03-20] MEDS: ISOSORBIDE MONONITRATE 60 MG (IMDUR) TAB PO SCH ×2 (06:05→17:03)
[2017-03-20] MEDS: BETHANECHOL 25 MG (URECHOLINE) TAB PO SCH ×4 (06:05→21:04)
[2017-03-20] MEDS: RT-ALBUTEROL/IPRATROPIUM 3 ML (DUONEB) VIAL INH SCH ×2 (08:01→19:20)
[2017-03-20] MEDS: RT-FLUTICASONE 110 MCG (FLOVENT) PER PUFF INH SCH ×2 (08:08→19:20)
[2017-03-20] MEDS: FLUoxetine HCL 20 MG (PROzac) CAP PO SCH (08:23)
[2017-03-20] MEDS: PHENYTOIN 100 MG (DILANTIN) CAP PO SCH ×2 (08:23→21:04)
[2017-03-20] MEDS: IBUPROFEN TABLET 200 MG TAB PO SCH (08:23)
[2017-03-20] MEDS: SENNA W/DOCUSATE (SENOKOT S) TABLET PO SCH ×2 (08:23→21:04)
[2017-03-20] MEDS: NICOTINE 21 MG (NICODERM) PATCH TD SCH (08:23)
[2017-03-20] MEDS: PIOGLITAZONE 30MG (ACTOS) TAB PO SCH (08:23)
[2017-03-20] MEDS: LORazepam 1 MG (ATIVAN) TAB PO SCH ×2 (08:24→21:04)
[2017-03-20] MEDS: ASPIRIN E.C. 81 MG (ECOTRIN) TAB PO SCH (08:24)
[2017-03-20] MEDS: CLOPIDOGREL 75 MG (PLAVIX) TABLET PO SCH (08:24)
[2017-03-20] MEDS: NICOTINE PATCH REMOVAL TP SCH (08:24)
[2017-03-20] MEDS: TIMOLOL MALEATE 0.5% 5 ML (TIMOPTIC) BTL OU SCH ×2 (08:49→21:02)
--- NOTE | 2017-03-20 09:25 | Physical Therapy Daily Note ---
PT Daily Note-Current Subjective Pt laying Supine in bed upon arrival. Pt reports being in pain and didn't sleep well. Nurse had already given pain med. Pt reports med. was starting to help decrease pain. Pt agreed to PT. Pain Numeric Pain Scale: 8 Location: Left Location Body Site: Hip Pain Description: Ache Mental Status Patient Orientation: Person, Place, Time, Situation Transfers Functional [place] Measure 0=Not Assessed/NA 4=Minimal Assistance 1=Total Assistance 5=Supervision or Setup 2=Maximal Assistance 6=Modified [place] 3=Moderate Assistance 7=Complete IndependenceIRFPAI Quality Coding Scale 6 Independent with activity with or without an assistive device 5 Patient requires set up or clean up by helper. Patient completes activity by themselves 4 Supervision or touching assist (CGA). [place] provide cues , steadying assist 3 The helper provides less than half the effort to complete the activity 2 The helper provides more than half the effort to complete the activity 1 Dependent. The helper does all the effort to complete an activity 7 Patient refused to complete or attempt activity 9 The patient did not perform the activity before the current illness or injury 88 Not attempted due to Medical conditions or safety concerns Exercises Supine Ex: Ankle pumps, Quad Set, Glut sets, Heel Slides, Straight leg raise, Hip abd/add Supine Reps: 15 Treatments Pt completed Supine Ex in bed with several short rest breaks. Pt and PT went over pt ed. items and pt advised PT what equipment has been helpful and would like to get before discharging next week. Pt wants sock aid and indicated easier to get on toilet with riser than w/o one. Pt is left with all needs met at end of tx. Assessment Current Status: Fair Progress Pt reports not feeling as well due to pain and fatigue from not sleeping well the night before. Pt has improved with strength and activity tolerance although pt reports pain not improving. PT Short Term Goals Short Term Goals Time Frame: March 18, 2017 Transfers (B,C,W/C) (FIM): 4 (met 03/18/17) Gait (FIM): 4 (met 03/18/17) Distance (FIM): 3=150 ft Gait Assistive Device: FWW PT Drier And Evaporator Operator Goals Mcfp Goals PT Mcfp Goals Time Frame: March 26, 2017 Transfers (B,C,W/C) (FIM): 7 Sit to Lying (QC): 6 Lying-Sitting on Side/Bed(QC): 6 Sit to Stand (QC): 6 Rollin Roll Left to Right (QC): 6 Chair/Kkg-ma-Zzhlu Xfer(QC): 6 Car Transfer (QC): 6 Does the Patient Walk: Yes Gait (FIM): 6 Gait distance (FIM): 3=150 ft Walk 10 feet (QC): 6 Walk 10ft-Uneven Surface(QC): 6 Walk 50ft with 2 Turns (QC): 6 Walk 150 ft (QC): 6 Gait Assistive Device: FWW Does the Pt use WC or Scooter?: No Stairs (FIM): 5 # of Steps: 8 1 Step (curb) (QC): 6 4 Steps (QC): 6 12 Steps (QC): 88 Picking up an Object (QC): 88 PT Plan Problem List Problem List: Activity Tolerance, Functional Strength, Safety, Balance, Gait, Transfer Treatment/Plan Treatment Plan: Continue Plan of Care Treatment Plan: Bed Mobility, Education, Functional Activity Daniel, Functional Strength, Group Therapy, Gait, Safety, Therapeutic Exercise, Transfers Treatment Duration: March 26, 2017 Visits Per Week: 10-15 Minutes/Day (M-F): 60-90 Minutes/Day (Sat/Meredith): prn Safety Risks/Education Patient Education: Transfer Techniques, Correct Positioning, Safety Issues Teaching Recipient: Patient Teaching Methods: Discussion Response to Teaching: Verbalize Understanding Time/GCodes Time In: 810 Time Out: 835 Total Billed Treatment Time: 25 Total Billed Treatment visit, EX (15m) & FA (10m) RASHMI OLIVER PTA March 20, 2017 09:25
[2017-03-20] MEDS: RAMIPRIL 5 MG (ALTACE) CAP PO SCH (11:38)
[2017-03-20] MEDS: ALFUZOSIN HCL 10 MG TAB (UROXATRAL) PO SCH (17:03)
[2017-03-20 19:01] VITALS: BP 103/61
[2017-03-20] MEDS: GABAPENTIN 100 MG (NEURONTIN) CAP PO SCH (21:04)
[2017-03-20] MEDS: eZETimibe 10 MG (ZETIA) TABLET PO SCH (21:04)
[2017-03-20] MEDS: TEMAZEPAM 15 MG (RESTORIL) CAP PO SCH (21:04)
[2017-03-20] MEDS: OLANZapine 2.5 MG (ZyPREXA) TAB PO SCH (21:04)
[2017-03-20] MEDS: LORATADINE (CLARITIN) 10 MG TAB PO SCH (21:04)
[2017-03-20] MEDS: SIMvastatin 40 MG (ZOCOR) TAB PO SCH (21:07)
--- NOTE | 2017-03-20 21:27 | PM & R (SOAP) Progress Note ---
Subjective Subjective/Events-last exam Patient was seen in his room this AM Patient SBA for transfers Pain control improved with adjustment of med yesterday Objective Exam Last Set of Vital Signs Vital Signs Date Time Temp Pulse Resp B/P (MAP) Pulse Ox O2 Delivery O2 Flow Rate FiO2 03/20/17 19:26 94 03/20/17 06:00 97.5 77 18 125/72 03/18/17 05:00 Room Air Capillary Refill : Less Than 3 Seconds I&O Intake and Output 03/20/17 00:00 Intake Total 1810 ml Output Total 1400 ml Balance 410 ml Intake Oral 1810 ml Output Urine Total 1400 ml Bladder Scan Volume Amount 720 ml 233 ml 485 ml # Voids 1 # Bowel Movements 2 General: Alert, Oriented X3, Cooperative, No Acute Distress HEENT: Atraumatic, PERRLA, EOMI, Mucous Memb Moist/[place] Neck: Supple, No JVD Lungs: Clear to Auscultation Heart: Regular Rate Abdomen: Normal Bowel Sounds, Soft, No Tenderness Extremities: Other (trace edema left ankle Hip dressing in place) Neuro: Other (strength limited left leg s/p frx) Results Lab Laboratory Tests 03/18/17 06:35: Glucometer 176H 03/18/17 11:10: Glucometer 181H 03/18/17 16:28: Glucometer 184H 03/18/17 20:45: Glucometer 148H 03/19/17 05:43: Glucometer 161H 03/19/17 05:44: Sodium Level 139, Potassium Level 3.7, Chloride Level 105, Carbon Dioxide Level 24, Anion Gap 10, Blood Urea Nitrogen 16, Creatinine 0.78, Estimat Glomerular Filtration Rate > 60, BUN/Creatinine Ratio 21, Glucose Level 157H, Calcium Level 9.1, Total Bilirubin 0.5, Aspartate Amino Transf (AST/SGOT) 23, Alanine Aminotransferase (ALT/SGPT) 32, Alkaline Phosphatase 162H, Total Protein 6.2L, Albumin 3.6 03/19/17 11:06: Glucometer 154H 03/19/17 15:45: Glucometer 125H 03/19/17 20:45: Glucometer 171H 03/20/17 05:23: Glucometer 140H 03/20/17 11:06: Glucometer 162H 03/20/17 16:13: Glucometer 123H 03/20/17 20:33: Glucometer 158H Assessment/Plan Assessment s/p left hip repair COPD Tobaccoism HTN Vascular dementia Plan Continue PT/OT/Pain management F/U with ortho and DR Hartman et al PRN Team Conference this coming week on 03/24/17 RON KINNEY MD March 20, 2017 21:27
[2017-03-21 05:49] VITALS: BP 146/78
[2017-03-21] MEDS: inSUlin ASPART (NovoLOG) 1 UNIT/0.01 ML (CHARGE PER UNIT) SC SCH ×4 (07:05→22:07)
[2017-03-21] MEDS: ENOXAPARIN 30 MG/0.3 ML (LOVENOX) SYR SC SCH ×2 (07:06→17:18)
[2017-03-21] MEDS: oxyCODONE/APAP 10/325MG (PERCOCET 10) TABLET PO PRN ×3 (07:06→21:21)
[2017-03-21] MEDS: BETHANECHOL 25 MG (URECHOLINE) TAB PO SCH ×4 (07:06→20:58)
[2017-03-21] MEDS: PANTOPRAZOLE 40 MG (PROTONIX) TAB PO SCH (07:06)
[2017-03-21] MEDS: ISOSORBIDE MONONITRATE 60 MG (IMDUR) TAB PO SCH ×2 (07:06→17:18)
[2017-03-21] MEDS: RT-ALBUTEROL/IPRATROPIUM 3 ML (DUONEB) VIAL INH SCH ×2 (07:45→19:56)
[2017-03-21] MEDS: RT-FLUTICASONE 110 MCG (FLOVENT) PER PUFF INH SCH ×2 (07:45→19:57)
[2017-03-21] MEDS: LORazepam 1 MG (ATIVAN) TAB PO SCH ×2 (08:07→20:58)
[2017-03-21] MEDS: PHENYTOIN 100 MG (DILANTIN) CAP PO SCH ×2 (08:07→20:58)
[2017-03-21] MEDS: FLUoxetine HCL 20 MG (PROzac) CAP PO SCH (08:07)
[2017-03-21] MEDS: NICOTINE PATCH REMOVAL TP SCH (08:07)
[2017-03-21] MEDS: IBUPROFEN TABLET 200 MG TAB PO SCH (08:07)
[2017-03-21] MEDS: NICOTINE 21 MG (NICODERM) PATCH TD SCH (08:07)
[2017-03-21] MEDS: PIOGLITAZONE 30MG (ACTOS) TAB PO SCH (08:07)
[2017-03-21] MEDS: ASPIRIN E.C. 81 MG (ECOTRIN) TAB PO SCH (08:08)
[2017-03-21] MEDS: SENNA W/DOCUSATE (SENOKOT S) TABLET PO SCH ×2 (08:08→20:58)
[2017-03-21] MEDS: CLOPIDOGREL 75 MG (PLAVIX) TABLET PO SCH (08:08)
[2017-03-21] MEDS: TIMOLOL MALEATE 0.5% 5 ML (TIMOPTIC) BTL OU SCH ×2 (08:08→21:02)
[2017-03-21] MEDS: RAMIPRIL 5 MG (ALTACE) CAP PO SCH (12:16)
[2017-03-21] MEDS: ALFUZOSIN HCL 10 MG TAB (UROXATRAL) PO SCH (17:18)
[2017-03-21 18:23] VITALS: BP 111/67
[2017-03-21] MEDS: LORATADINE (CLARITIN) 10 MG TAB PO SCH (20:58)
[2017-03-21] MEDS: TEMAZEPAM 15 MG (RESTORIL) CAP PO SCH (20:58)
[2017-03-21] MEDS: eZETimibe 10 MG (ZETIA) TABLET PO SCH (20:58)
[2017-03-21] MEDS: OLANZapine 2.5 MG (ZyPREXA) TAB PO SCH (20:58)
[2017-03-21] MEDS: SIMvastatin 40 MG (ZOCOR) TAB PO SCH (20:58)
[2017-03-21] MEDS: GABAPENTIN 100 MG (NEURONTIN) CAP PO SCH (20:58)
[2017-03-22 05:39] VITALS: BP 128/64
[2017-03-22] MEDS: inSUlin ASPART (NovoLOG) 1 UNIT/0.01 ML (CHARGE PER UNIT) SC SCH ×4 (06:29→21:16)
[2017-03-22] MEDS: ISOSORBIDE MONONITRATE 60 MG (IMDUR) TAB PO SCH ×2 (06:32→17:10)
[2017-03-22] MEDS: BETHANECHOL 25 MG (URECHOLINE) TAB PO SCH ×4 (06:32→20:46)
[2017-03-22] MEDS: ENOXAPARIN 30 MG/0.3 ML (LOVENOX) SYR SC SCH ×2 (06:33→17:09)
[2017-03-22] MEDS: PANTOPRAZOLE 40 MG (PROTONIX) TAB PO SCH (06:33)
[2017-03-22] MEDS: oxyCODONE/APAP 10/325MG (PERCOCET 10) TABLET PO PRN ×4 (06:33→21:17)
[2017-03-22] MEDS: RT-ALBUTEROL/IPRATROPIUM 3 ML (DUONEB) VIAL INH SCH ×2 (06:54→19:13)
[2017-03-22] MEDS: RT-FLUTICASONE 110 MCG (FLOVENT) PER PUFF INH SCH ×2 (06:55→19:13)
[2017-03-22] MEDS: PIOGLITAZONE 30MG (ACTOS) TAB PO SCH (07:39)
[2017-03-22] MEDS: FLUoxetine HCL 20 MG (PROzac) CAP PO SCH (07:40)
[2017-03-22] MEDS: PHENYTOIN 100 MG (DILANTIN) CAP PO SCH ×2 (07:40→20:46)
[2017-03-22] MEDS: IBUPROFEN TABLET 200 MG TAB PO SCH (07:40)
[2017-03-22] MEDS: SENNA W/DOCUSATE (SENOKOT S) TABLET PO SCH ×2 (07:40→20:46)
[2017-03-22] MEDS: ASPIRIN E.C. 81 MG (ECOTRIN) TAB PO SCH (07:40)
[2017-03-22] MEDS: CLOPIDOGREL 75 MG (PLAVIX) TABLET PO SCH (07:40)
[2017-03-22] MEDS: LORazepam 1 MG (ATIVAN) TAB PO SCH ×2 (07:40→20:43)
[2017-03-22] MEDS: NICOTINE 21 MG (NICODERM) PATCH TD SCH (07:44)
[2017-03-22] MEDS: NICOTINE PATCH REMOVAL TP SCH (07:45)
[2017-03-22] MEDS: TIMOLOL MALEATE 0.5% 5 ML (TIMOPTIC) BTL OU SCH ×2 (07:45→20:43)
--- NOTE | 2017-03-22 09:21 | Occupational Ther Daily Note ---
OT Current Status-Daily Note Subjective Pt alert, lying in bed. Pt agreed to therapy. No c/o pain at this time. Mental Status/Objective Patient Orientation: Person, Place, Time, Situation Functional [place] Measure 0=Not Assessed/NA 4=Minimal Assistance 1=Total Assistance 5=Supervision or Setup 2=Maximal Assistance 6=Modified [place] 3=Moderate Assistance 7=Complete [place] Attachments: IV ADL-Treatment Pt agreed to take sponge bathe sitting EOB. Pt was able to go from supine to sitting EOB with mod I, using bedrails. Using AE pt was able to complete bathing. Pt requires SBA when standing to cleanse self and hike pants over hips , 1x LOB. Pt able to don/doff socks and shoes with AE. Pt maneuvered w/c into bathroom and completed grooming sitting at sink. Functional [place] Measure 0=Not Assessed/NA 4=Minimal Assistance 1=Total Assistance 5=Supervision or Setup 2=Maximal Assistance 6=Modified [place] 3=Moderate Assistance 7=Complete IndependenceIRFPAI Quality Coding Scale 6 Independent with activity with or without an assistive device 5 Patient requires set up or clean up by helper. Patient completes activity by themselves 4 Supervision or touching assist (CGA). [place] provide cues , steadying assist 3 The helper provides less than half the effort to complete the activity 2 The helper provides more than half the effort to complete the activity 1 Dependent. The helper does all the effort to complete an activity 7 Patient refused to complete or attempt activity 9 The patient did not perform the activity before the current illness or injury 88 Not attempted due to Medical conditions or safety concerns Grooming (FIM): 6 Oral Hygiene (QC): 6 Bathing (FIM): 5 Shower/Bathe Self (QC): 4 Upper Body (FIM): 5 Upper Body Dressing (QC): 5 Lower Body Dressing (FIM): 4 Lower Body Dressing (QC): 4 On/Off Footwear (QC): 6 Transfers (B, C, W/C) (FIM): 5 Other Treatment Pt maneuvered w/c to therapy gym. Arm bike completed duration 15 min at 20 [place] resistance without breaks to increase strength and activity tolerance for daily functional tasks. Pt then maneuvered w/c to large bathroom to work on transferring with tub transfer bench and tub bench. Pt was able to use grabbars to step R foot into tub then sit down on tub transfer bench and tub bench with CGA. Pt worked on UE strengthening and endurance with w/c mobility throughout hospital by maneuvering around corners and table then up long ramp. Pt tolerated well. After therapy, pt sitting in w/c and sitting in [facility] commons area completing word searches. All needs met in room. OT Short Term Goals Short Term Goals Time Frame: March 18, 2017 Bathing(FIM): 4 Lower Body Dressing(FIM): 3 Toileting(FIM): 3 Transfers (B,C,W/C) (FIM): 4 (met 03/18/17) Toilet/Commode Transfer(FIM): 4 1=Demonstrate adherence to instructed precautions during ADL tasks. 2=Patient will verbalize/demonstrate understanding of assistive devices/ modifications for ADL. 3=Patient will improve strength/tolerance for activity to enable patient to perform ADL's. OT Bed Manager Goals Mcfp Goals Time Frame: April 01, 2017 Eating (FIM): 5 Eating (QC): 6 Groomin Oral Hygiene (QC): 6 Bathing(FIM): 5 Shower/Bathe Self (QC): 4 Upper Body Dressing(FIM): 5 Upper Body Dressing (QC): 4 Lower Body Dressing(FIM): 5 Lower Body Dressing (QC): 4 On/Off Footwear (QC): 5 Toileting(FIM): 4 Toileting Hygiene (QC): 6 Toilet/Commode Transfer(FIM): 6 Toilet/Commode Transfer (QC): 6 Shower Transfer(FIM): 5 Comprehension(FIM): 5 Expression (FIM): 5 Social Interaction(FIM): 4 Problem Solving(FIM): 4 Additional Goals: 1-Demonstrate ADL Tasks, 2-Verbalize Understanding, 3- ImproveStrength/Daniel 1=Demonstrate adherence to instructed precautions during ADL tasks. 2=Patient will verbalize/demonstrate understanding of assistive devices/ modifications for ADL. 3=Patient will improve strength/tolerance for activity to enable patient to perform ADL's. OT Education/Plan Problem List/Assessment Pt to benefit from skilled OT intervention for ADL training, transfers, strengthening, adaptive equipment training, and home safety education to increase level of independence and allow safe return home. Discharge Recommendations Plan/Recommendations: Continue POC Treatment Plan/Plan of Care Patient would benefit from OT for education, treatment and training to promote independence in ADL's, mobility, safety and/or upper extremity function for ADL' s. Plan of Care: ADL Retraining, Functional Mobility, Group Exercise/Act as Ind, UE Funct Exercise/Act Treatment Duration: April 01, 2017 Visits Per Week: 10-12 Minutes/Day (M-F): 60-90 Minutes/Day (Sat/Meredith): PRN Agreement: Yes Rehab Potential: Good Time/GCodes Start Time: 08:30 Stop Time: 10:00 Total Time Billed (hr/min): 90 Billed Treatment Time 1 visit-ADL 3 (15 min) FA 2 (30 min) EX 1 (15 min) KARAN BILLS March 22, 2017 09:21
--- NOTE | 2017-03-22 10:42 | Progress Note-Urology ---
Progress Note-Urology Progress Notes/Assess & Plan Progress/Assessment & Plan still needing isc every shift with about 700-800cc. discussed with him options with pros and cons of each from best to least good 1. Teach him and /or family member ISC 2. SP tube 3. [place] He will think and discuss ith family and let us know Final Diagnosis Urine Retention ALBERT KNOTT MD March 22, 2017 10:42 am
[2017-03-22] MEDS: RAMIPRIL 5 MG (ALTACE) CAP PO SCH (11:20)
--- NOTE | 2017-03-22 11:53 | Physical Therapy Daily Note ---
PT Daily Note-Current Subjective Pt. in bed and states he has pain at 9/10 and cant walk at this time. Pt. requested pain meds , nurse gave them but pain only subsided to 8/10 level. Pt. c/o his pain in is mostly in his left knee and he doesnt understand this. Pt. states he has begun to realize that going home may be more difficult than he thought and he would consider another plan if he goes home and it does not work out. Pain Numeric Pain Scale: 9 Location: Left Location Body Site: Hip Pain Description: Ache Mental Status Patient Orientation: Normal For Age Transfers Functional [place] Measure 0=Not Assessed/NA 4=Minimal Assistance 1=Total Assistance 5=Supervision or Setup 2=Maximal Assistance 6=Modified [place] 3=Moderate Assistance 7=Complete IndependenceIRFPAI Quality Coding Scale 6 Independent with activity with or without an assistive device 5 Patient requires set up or clean up by helper. Patient completes activity by themselves 4 Supervision or touching assist (CGA). [place] provide cues , steadying assist 3 The helper provides less than half the effort to complete the activity 2 The helper provides more than half the effort to complete the activity 1 Dependent. The helper does all the effort to complete an activity 7 Patient refused to complete or attempt activity 9 The patient did not perform the activity before the current illness or injury 88 Not attempted due to Medical conditions or safety concerns Transfers (B, C, W/C) (FIM): 6 Scootin Rollin Supine to/from Sit: 6 Sit to/from Stand: 6 pt. declined walking but did scoot up in bed x3 indep as well as in out bed sup to sit x3 also indep Gait Training side stepping only left and right at bedside with c/o that left knee pain increases Exercises Supine Ex: Ankle pumps, Quad Set, Rolling, Glut sets, Heel Slides, Short Arc Quads, Scooting, Straight leg raise (right only), Hip abd/add Supine Reps: 15 Seated Therapy Exercises: Ankle pumps, Sit to stand, Long arc quads Seated Reps: 8 Assessment Current Status: Good Progress pain level limits participation this date PT Short Term Goals Short Term Goals Time Frame: March 18, 2017 Transfers (B,C,W/C) (FIM): 4 (met 03/18/17) Gait (FIM): 4 (met 03/18/17) Distance (FIM): 3=150 ft Gait Assistive Device: FWW PT Chcf Goals Clinical Study Manager Goals PT Clinical Study Manager Goals Time Frame: March 26, 2017 Transfers (B,C,W/C) (FIM): 7 Sit to Lying (QC): 6 Lying-Sitting on Side/Bed(QC): 6 Sit to Stand (QC): 6 Rollin Roll Left to Right (QC): 6 Chair/Tft-eh-Dtpsc Xfer(QC): 6 Car Transfer (QC): 6 Does the Patient Walk: Yes Gait (FIM): 6 Gait distance (FIM): 3=150 ft Walk 10 feet (QC): 6 Walk 10ft-Uneven Surface(QC): 6 Walk 50ft with 2 Turns (QC): 6 Walk 150 ft (QC): 6 Gait Assistive Device: FWW Does the Pt use WC or Scooter?: No Stairs (FIM): 5 # of Steps: 8 1 Step (curb) (QC): 6 4 Steps (QC): 6 12 Steps (QC): 88 Picking up an Object (QC): 88 PT Plan Treatment/Plan Treatment Plan: Continue Plan of Care Treatment Plan: Bed Mobility, Education, Functional Activity Daniel, Functional Strength, Group Therapy, Gait, Safety, Therapeutic Exercise, Transfers Treatment Duration: March 26, 2017 Visits Per Week: 10-15 Minutes/Day (M-F): 60-90 Minutes/Day (Sat/Meredith): prn Safety Risks/Education Patient Education: Transfer Techniques Teaching Recipient: Patient Teaching Methods: Demonstration, Discussion Response to Teaching: Verbalize Understanding, Return Demonstration, Reinforcement Needed much discussion RE: DC and options if he does not manage well at home Time/GCodes Time In: 1100 Time Out: 1200 Total Billed Treatment Time: 60 Total Billed Treatment 1,EX35m,FA25m G Codes Necessary: No TOM CASTILLO BULK SUGAR HANDLER March 22, 2017 11:53
--- NOTE | 2017-03-22 15:13 | Physical Therapy Daily Note ---
PT Daily Note-Current Subjective Pt. agrees to Rx and is ready to get back home. Pain Numeric Pain Scale: 3 Mental Status Patient Orientation: Normal For Age Transfers Functional [place] Measure 0=Not Assessed/NA 4=Minimal Assistance 1=Total Assistance 5=Supervision or Setup 2=Maximal Assistance 6=Modified [place] 3=Moderate Assistance 7=Complete IndependenceIRFPAI Quality Coding Scale 6 Independent with activity with or without an assistive device 5 Patient requires set up or clean up by helper. Patient completes activity by themselves 4 Supervision or touching assist (CGA). [place] provide cues , steadying assist 3 The helper provides less than half the effort to complete the activity 2 The helper provides more than half the effort to complete the activity 1 Dependent. The helper does all the effort to complete an activity 7 Patient refused to complete or attempt activity 9 The patient did not perform the activity before the current illness or injury 88 Not attempted due to Medical conditions or safety concerns all bed and chair TRFs SBA , pt. needed cues and education this date RE: using arms on chair to lower and raise, states "oh yeah, I forget that sometimes" Gait Training Does the Patient Walk?: Yes Gait (FIM): 5 Distance (FIM): 3=150 ft (x3) Gait Level of Assist: 5 Gait Persons Needed: 1 Gait Assistive Device: FWW 2 episodes of RLE giving suddenly with pt. recovering indep, "not sure what happened" Stair Training Stair Training: Handrails/: 2 handrails Stairs (FIM): 2 #of Steps: 4 Stairs: Pattern: Step to Level of Assist: 4 Exercises Supine Ex: Ankle pumps, Quad Set, Heel Slides, Hip abd/add Supine Reps: 15 Assessment Current Status: Good Progress PT Short Term Goals Short Term Goals Time Frame: March 18, 2017 Transfers (B,C,W/C) (FIM): 4 (met 03/18/17) Gait (FIM): 4 (met 03/18/17) Distance (FIM): 3=150 ft Gait Assistive Device: FWW PT Fdc Goals Medieval English Literature Professor Goals PT Fdc Goals Time Frame: March 26, 2017 Transfers (B,C,W/C) (FIM): 7 Sit to Lying (QC): 6 Lying-Sitting on Side/Bed(QC): 6 Sit to Stand (QC): 6 Rollin Roll Left to Right (QC): 6 Chair/Erl-cb-Uowcc Xfer(QC): 6 Car Transfer (QC): 6 Does the Patient Walk: Yes Gait (FIM): 6 Gait distance (FIM): 3=150 ft Walk 10 feet (QC): 6 Walk 10ft-Uneven Surface(QC): 6 Walk 50ft with 2 Turns (QC): 6 Walk 150 ft (QC): 6 Gait Assistive Device: FWW Does the Pt use WC or Scooter?: No Stairs (FIM): 5 # of Steps: 8 1 Step (curb) (QC): 6 4 Steps (QC): 6 12 Steps (QC): 88 Picking up an Object (QC): 88 PT Plan Treatment/Plan Treatment Plan: Continue Plan of Care Treatment Plan: Bed Mobility, Education, Functional Activity Daniel, Functional Strength, Group Therapy, Gait, Safety, Therapeutic Exercise, Transfers Treatment Duration: March 26, 2017 Visits Per Week: 10-15 Minutes/Day (M-F): 60-90 Minutes/Day (Sat/Meredith): prn Safety Risks/Education Patient Education: Gait Training, Transfer Techniques, Steps Teaching Recipient: Patient Teaching Methods: Demonstration, Discussion Response to Teaching: Verbalize Understanding, Return Demonstration, Reinforcement Needed Time/GCodes Time In: 1440 Time Out: 1510 Total Billed Treatment Time: 30 Total Billed Treatment 1,FA15m,GT15m G Codes Necessary: TOM Morton INTEL RECRUITER March 22, 2017 15:13
[2017-03-22] MEDS: ALFUZOSIN HCL 10 MG TAB (UROXATRAL) PO SCH (17:09)
[2017-03-22 18:03] VITALS: BP 111/63
--- NOTE | 2017-03-22 19:53 | PM & R (SOAP) Progress Note ---
Subjective Subjective/Events-last exam Patient was seen in his room this evening Still with Urinary retention ICP being utilized Appreciate Dr Lynch note -He is managing.Patient requests further change in pain meds See orders.Patient SBA for transfers and gait with walker Objective Exam Last Set of Vital Signs Vital Signs Date Time Temp Pulse Resp B/P (MAP) Pulse Ox O2 Delivery O2 Flow Rate FiO2 03/22/17 19:19 95 03/22/17 18:03 97.7 70 16 111/63 03/18/17 05:00 Room Air Capillary Refill : Less Than 3 Seconds I&O Intake and Output 03/22/17 00:00 Intake Total 2210 ml Output Total 3100 ml Balance -890 ml Intake Oral 2210 ml Output Urine Total 3100 ml Bladder Scan Volume Amount 700 ml 396 ml 580 ml # Voids 3 # Bowel Movements 1 General: Alert, Oriented X3, Cooperative, No Acute Distress HEENT: Atraumatic, PERRLA, EOMI, Mucous Memb Moist/[place] Neck: Supple, No JVD Lungs: Clear to Auscultation Heart: Regular Rate Abdomen: Normal Bowel Sounds, Soft, No Tenderness Extremities: Other (trace edema left ankle Hip dressing in place) Neuro: Other (strength limited left leg s/p frx) Results Lab Laboratory Tests 03/19/17 20:45: Glucometer 171H 03/20/17 05:23: Glucometer 140H 03/20/17 11:06: Glucometer 162H 03/20/17 16:13: Glucometer 123H 03/20/17 20:33: Glucometer 158H 03/21/17 06:54: Glucometer 159H 03/21/17 11:12: Glucometer 268H 03/21/17 15:58: Glucometer 163H 03/21/17 21:20: Glucometer 121H 03/22/17 06:18: Glucometer 152H 03/22/17 11:13: Glucometer 146H 03/22/17 16:49: Glucometer 105 Assessment/Plan Assessment s/p left hip repair COPD Tobaccoism HTN Vascular dementia Urinary retention Plan Continue PT/OT/Pain management F/U with ortho,DR Pena and DR Hartman et al PRN Team Conference this coming week on 03/24/17-with possible discharge that day Add low dose tramadol see orders RON KINNEY MD March 22, 2017 19:53
[2017-03-22] MEDS: OLANZapine 2.5 MG (ZyPREXA) TAB PO SCH (20:44)
[2017-03-22] MEDS: SIMvastatin 40 MG (ZOCOR) TAB PO SCH (20:44)
[2017-03-22] MEDS: GABAPENTIN 100 MG (NEURONTIN) CAP PO SCH (20:44)
[2017-03-22] MEDS: LORATADINE (CLARITIN) 10 MG TAB PO SCH (20:44)
[2017-03-22] MEDS: eZETimibe 10 MG (ZETIA) TABLET PO SCH (20:46)
[2017-03-22] MEDS: TEMAZEPAM 15 MG (RESTORIL) CAP PO SCH (20:46)
[2017-03-22] MEDS: CATHETER FLUSH 10 ML SYR IV PRN (20:50)
[2017-03-23] MEDS: oxyCODONE/APAP 10/325MG (PERCOCET 10) TABLET PO PRN ×5 (03:49→22:17)
[2017-03-23 05:07] VITALS: BP 104/61
[2017-03-23] MEDS: inSUlin ASPART (NovoLOG) 1 UNIT/0.01 ML (CHARGE PER UNIT) SC SCH ×4 (06:00→20:41)
[2017-03-23] MEDS: ISOSORBIDE MONONITRATE 60 MG (IMDUR) TAB PO SCH ×2 (06:08→16:39)
[2017-03-23] MEDS: PANTOPRAZOLE 40 MG (PROTONIX) TAB PO SCH (06:08)
[2017-03-23] MEDS: ENOXAPARIN 30 MG/0.3 ML (LOVENOX) SYR SC SCH ×2 (06:09→18:12)
[2017-03-23] MEDS: BETHANECHOL 25 MG (URECHOLINE) TAB PO SCH ×4 (06:09→20:39)
[2017-03-23] MEDS: RT-ALBUTEROL/IPRATROPIUM 3 ML (DUONEB) VIAL INH SCH ×2 (07:53→18:27)
[2017-03-23] MEDS: RT-FLUTICASONE 110 MCG (FLOVENT) PER PUFF INH SCH ×2 (07:53→18:27)
[2017-03-23] MEDS: LORazepam 1 MG (ATIVAN) TAB PO SCH ×2 (08:08→20:39)
[2017-03-23] MEDS: IBUPROFEN TABLET 200 MG TAB PO SCH (08:08)
[2017-03-23] MEDS: PIOGLITAZONE 30MG (ACTOS) TAB PO SCH (08:08)
[2017-03-23] MEDS: CLOPIDOGREL 75 MG (PLAVIX) TABLET PO SCH (08:08)
[2017-03-23] MEDS: PHENYTOIN 100 MG (DILANTIN) CAP PO SCH ×2 (08:08→20:39)
[2017-03-23] MEDS: FLUoxetine HCL 20 MG (PROzac) CAP PO SCH (08:08)
[2017-03-23] MEDS: SENNA W/DOCUSATE (SENOKOT S) TABLET PO SCH ×2 (08:08→20:39)
[2017-03-23] MEDS: ASPIRIN E.C. 81 MG (ECOTRIN) TAB PO SCH (08:08)
[2017-03-23] MEDS: NICOTINE 21 MG (NICODERM) PATCH TD SCH (08:10)
[2017-03-23] MEDS: NICOTINE PATCH REMOVAL TP SCH (08:11)
[2017-03-23] MEDS: TIMOLOL MALEATE 0.5% 5 ML (TIMOPTIC) BTL OU SCH ×2 (08:15→20:41)
--- NOTE | 2017-03-23 08:55 | Occupational Ther Daily Note ---
OT Current Status-Daily Note Subjective Pt alert, lying in bed. Nrsg present in room. Pt agreed to therapy. No c/o pain. Mental Status/Objective Patient Orientation: Person, Place, Time, Situation Functional [place] Measure 0=Not Assessed/NA 4=Minimal Assistance 1=Total Assistance 5=Supervision or Setup 2=Maximal Assistance 6=Modified [place] 3=Moderate Assistance 7=Complete [place] Attachments: IV ADL-Treatment Functional [place] Measure 0=Not Assessed/NA 4=Minimal Assistance 1=Total Assistance 5=Supervision or Setup 2=Maximal Assistance 6=Modified [place] 3=Moderate Assistance 7=Complete IndependenceIRFPAI Quality Coding Scale 6 Independent with activity with or without an assistive device 5 Patient requires set up or clean up by helper. Patient completes activity by themselves 4 Supervision or touching assist (CGA). [place] provide cues , steadying assist 3 The helper provides less than half the effort to complete the activity 2 The helper provides more than half the effort to complete the activity 1 Dependent. The helper does all the effort to complete an activity 7 Patient refused to complete or attempt activity 9 The patient did not perform the activity before the current illness or injury 88 Not attempted due to Medical conditions or safety concerns Eating (FIM): 6 ([employer]. Pt is able to open containers/packages and use regular utensils to feed self.) Eating (QC): 6 ([place]. Pt is able to open containers/packages and use regular utensils to feed self.) Grooming (FIM): 6 (Sitting at sink, pt is able to complete grooming by self.) Oral Hygiene (QC): 6 (Sitting at sink, pt is able to complete oral care by self.) Bathing (FIM): 6 (Safety concerns. Using shower bench, grabbars, hand held shower and long handle sponge pt is able to to complete own bathing. ) Bathing Location: L Arm, R Arm, L Upper Leg, R Upper Leg, L Lower Leg ( including foot), R Lower Leg (including foot), Chest, Abdomen, Buttocks, Perineal Area Shower/Bathe Self (QC): 6 (Safety concerns. Using shower bench, grabbars, hand held shower and long handle sponge pt is able to to complete own bathing. ) Upper Body (FIM): 6 (Pt retrieved clothes with FWW then transported them to bathroom. Pt able to don/doff clothing by self.) Upper Body Dressing (QC): 6 (Pt retrieved clothes with FWW then transported them to bathroom. Pt able to don/doff clothing by self.) Lower Body Dressing (FIM): 6 (Pt retrieved clothes with FWW then transported them to bathroom. Pt able to don/doff clothing by self using AE to adhere to precautions. Safety concerns.) Lower Body Dressing (QC): 6 (Pt retrieved clothes with FWW then transported them to bathroom. Pt able to don/doff clothing by self using AE to adhere to precautions. Safety concerns.) On/Off Footwear (QC): 6 (Using AE pt is able to complete.) Toileting (FIM): 6 (Using BSC, pt is able to manipulate clothing and cleanse self.) Toileting Hygiene (QC): 6 (Using BSC, pt is able to manipulate clothing and cleanse self.) Transfers (B, C, W/C) (FIM): 6 (Using FWW, pt is able to complete stand pivot transfer. Safety concerns.) Toilet/Commode Transfer (FIM): 6 (Using BSC, pt is able to complete transfer.) Toilet Transfer (QC): 6 (Using BSC, pt is able to complete.) Shower Transfer(FIM): 6 (Using FWW, shower bench and grabbars pt is able to complete.) Safety concerns due to pt's inability to catch self when LOB occurs. Pt has demonstrated understanding of safety during transfers and uses them. After therapy, pt lying in bed with call light/phone in reach. All needs met in room. OT Short Term Goals Short Term Goals Time Frame: March 18, 2017 Bathing(FIM): 4 Lower Body Dressing(FIM): 3 Toileting(FIM): 3 Transfers (B,C,W/C) (FIM): 4 (met 03/18/17) Toilet/Commode Transfer(FIM): 4 1=Demonstrate adherence to instructed precautions during ADL tasks. 2=Patient will verbalize/demonstrate understanding of assistive devices/ modifications for ADL. 3=Patient will improve strength/tolerance for activity to enable patient to perform ADL's. OT Secondary School Teacher Librarian Goals Secondary School Teacher Librarian Goals Time Frame: April 01, 2017 Eating (FIM): 5 (met-03/23/2017) Eating (QC): 6 (03/23/2017) Groomin (03/23/2017) Oral Hygiene (QC): 6 (03/23/2017) Bathing(FIM): 5 (03/23/2017) Shower/Bathe Self (QC): 4 (03/23/2017) Upper Body Dressing(FIM): 5 (03/23/2017) Upper Body Dressing (QC): 4 (03/23/2017) Lower Body Dressing(FIM): 5 (03/23/2017) Lower Body Dressing (QC): 4 (03/23/2017) On/Off Footwear (QC): 5 (03/23/2017) Toileting(FIM): 4 (03/23/2017) Toileting Hygiene (QC): 6 (03/23/2017) Toilet/Commode Transfer(FIM): 6 (03/23/2017) Toilet/Commode Transfer (QC): 6 (met03/23/2017) Shower Transfer(FIM): 5 (03/23/2017) Comprehension(FIM): 5 (03/23/2017) Expression (FIM): 5 (03/23/2017) Social Interaction(FIM): 4 (03/23/2017) Problem Solving(FIM): 4 (03/23/2017) Additional Goals: 1-Demonstrate ADL Tasks, 2-Verbalize Understanding, 3- ImproveStrength/Daniel 1=Demonstrate adherence to instructed precautions during ADL tasks. 2=Patient will verbalize/demonstrate understanding of assistive devices/ modifications for ADL. 3=Patient will improve strength/tolerance for activity to enable patient to perform ADL's. OT Education/Plan Problem List/Assessment Pt to benefit from skilled OT intervention for ADL training, transfers, strengthening, adaptive equipment training, and home safety education to increase level of independence and allow safe return home. Discharge Recommendations Plan/Recommendations: Continue POC Treatment Plan/Plan of Care Patient would benefit from OT for education, treatment and training to promote independence in ADL's, mobility, safety and/or upper extremity function for ADL' s. Plan of Care: ADL Retraining, Functional Mobility, Group Exercise/Act as Ind, UE Funct Exercise/Act Treatment Duration: April 01, 2017 Visits Per Week: 10-12 Minutes/Day (M-F): 60-90 Minutes/Day (Sat/Meredith): PRN Agreement: Yes Rehab Potential: Good Time/GCodes Start Time: 08:15 Stop Time: 09:15 Total Time Billed (hr/min): 60 Billed Treatment Time 1 visit-ADL 4 (60 min) KARAN BILLS March 23, 2017 08:55
--- NOTE | 2017-03-23 09:06 | PM & R (SOAP) Progress Note ---
Subjective Subjective/Events-last exam Patient was seen in his room this AM Patient sba for transfers Pain control better with adjustment in meds Objective Exam Last Set of Vital Signs Vital Signs Date Time Temp Pulse Resp B/P (MAP) Pulse Ox O2 Delivery O2 Flow Rate FiO2 03/23/17 07:54 96 03/23/17 05:07 97.4 67 16 104/61 03/18/17 05:00 Room Air Capillary Refill : Less Than 3 Seconds I&O Intake and Output 03/23/17 00:00 Intake Total 800 ml Output Total 1000 ml Balance -200 ml Intake Oral 800 ml Output Urine Total 1000 ml Bladder Scan Volume Amount 373 ml 776 ml 776 ml 111 ml 273 ml # Bowel Movements 1 General: Alert, Oriented X3, Cooperative, No Acute Distress HEENT: Atraumatic, PERRLA, EOMI, Mucous Memb Moist/[place] Neck: Supple, No JVD Lungs: Clear to Auscultation Heart: Regular Rate Abdomen: Normal Bowel Sounds, Soft, No Tenderness Extremities: Other (trace edema left ankle Hip dressing in place) Neuro: Other (strength limited left leg s/p frx) Results Lab Laboratory Tests 03/20/17 11:06: Glucometer 162H 03/20/17 16:13: Glucometer 123H 03/20/17 20:33: Glucometer 158H 03/21/17 06:54: Glucometer 159H 03/21/17 11:12: Glucometer 268H 03/21/17 15:58: Glucometer 163H 03/21/17 21:20: Glucometer 121H 03/22/17 06:18: Glucometer 152H 03/22/17 11:13: Glucometer 146H 03/22/17 16:49: Glucometer 105 03/22/17 21:15: Glucometer 176H 03/23/17 04:09: Glucometer 137H Assessment/Plan Assessment s/p left hip repair COPD Tobaccoism HTN Vascular dementia Urinary retention being managed with ICP Plan Continue PT/OT/Pain management F/U with ortho,DR Pena and DR Hartman et al PRN Added low dose tramadol see orders Team Conference tomorrow with possible discharge that same day as well Will f/u with SW re details RON KINNEY MD March 23, 2017 09:05
--- NOTE | 2017-03-23 10:55 | Progress Note-Hospitalist ---
Subjective HPI/CC On Admission CC: Left Hip Fracture recovery in need of in-pt rehab HPI: This is 66yoWM who presents with left hip fracture repair and in need of recovery. He has a hx of seizure disorder and CAD. Patient Interview: Physical exam stable Pt was in PT during visit. Pt was verbal but did not seem concerned with discussing his care. he is more interested in talking to the nurses around him. Pt rates his pain as 10/10 which does not seem possible since it so many days out of repair No seizures reported Reviewed all meds and continued for inpatient rehabilitation Scribed by Sarah [place] under the direct supervision of Dr. Hartman. Date Seen 03/23/17 Subjective/Events-last exam Mr. Dalton reports improved pain levels. He is doing well with physical therapy from his standpoint in hopes to be discharged tomorrow. He is still unable to void without straight catheterization. He denies any pressure or pelvic discomfort. He reports previous problems with urinary retention with past hospitalizations and as a distant past history of transurethral resection of prostate. Exam findings per Dr. Pena are most compatible with neurogenic bladder and not obstruction. Objective Exam Vital Signs Vital Sign - Last 12Hours 03/17/17 05:21 Temp 98.9 Pulse 82 Resp 16 B/P (MAP) 129/71 Pulse Ox 95 O2 Delivery Room Air Capillary Refill : Less Than 3 Seconds General Appearance: No Apparent Distress Respiratory: Chest Non Tender, Lungs Clear, Normal Breath Sounds, No Accessory Muscle Use, No Respiratory Distress Cardiovascular: Regular Rate, Rhythm, No Edema, No Gallop, No JVD, No Murmur Gastrointestinal: Normal Bowel Sounds, No Organomegaly, No Pulsatile Mass, Non Tender, Soft Assessment/Plan Assessment and Plan Assess & Plan/Chief Complaint 1. Status post left hip replacement for intertrochanteric fracture with good progress. 2. Apparent neurogenic bladder with secondary urinary retention requiring straight catheterization. Discussed the fact that the patient would either have to be taught to straight catheter himself at home which she prefers or discharge the [place] catheter. Nursing staff will begin training the patient. Patient prefers this option and believes that he will be able to comply. Neck continue to follow with Dr. Pena. Will DC antihistamine and continue nasal steroid for seasonal allergies just in case it is having a negative impact. Thus that narcotics may be having a negative impact as well discussing the importance of deccreasing use. 3. History of reported seizure disorder no seizures during this hospital stay will repeat Dilantin level before discharge. 4. Reported history of coronary artery disease clinically stable no evidence for bleeding on current antiplatelet therapy. GIANFRANCO HERNANDEZ MD March 23, 2017 10:55
[2017-03-23] MEDS: RAMIPRIL 5 MG (ALTACE) CAP PO SCH (11:08)
--- NOTE | 2017-03-23 11:42 | Occupational Ther Daily Note ---
OT Current Status-Daily Note Subjective Pt alert, lying in bed. Pt agreed to therapy. No c/o pain at this time. Mental Status/Objective Patient Orientation: Person, Place, Time, Situation Functional [place] Measure 0=Not Assessed/NA 4=Minimal Assistance 1=Total Assistance 5=Supervision or Setup 2=Maximal Assistance 6=Modified [place] 3=Moderate Assistance 7=Complete [place] Attachments: IV ADL-Treatment Functional [place] Measure 0=Not Assessed/NA 4=Minimal Assistance 1=Total Assistance 5=Supervision or Setup 2=Maximal Assistance 6=Modified [place] 3=Moderate Assistance 7=Complete IndependenceIRFPAI Quality Coding Scale 6 Independent with activity with or without an assistive device 5 Patient requires set up or clean up by helper. Patient completes activity by themselves 4 Supervision or touching assist (CGA). [place] provide cues , steadying assist 3 The helper provides less than half the effort to complete the activity 2 The helper provides more than half the effort to complete the activity 1 Dependent. The helper does all the effort to complete an activity 7 Patient refused to complete or attempt activity 9 The patient did not perform the activity before the current illness or injury 88 Not attempted due to Medical conditions or safety concerns Other Treatment Bed mobility mod I using bed rails. Pt able to don/doff shoes using AE to adhere to precautions. Pt then ambulated to therapy gym with SBA using FWW. Pt 's L LE will buckle so close SBA is needed for safety. Arm bike completed duration 15 min at 25 [place]head resistance without breaks to increase strength and activity tolerance for daily functional tasks. Pt ambulated back to room. After therapy, pt lying in bed with nrsg present to complete bladder scan. Call light/phone in reach. All needs met in room. OT Short Term Goals Short Term Goals Time Frame: March 18, 2017 Bathing(FIM): 4 Lower Body Dressing(FIM): 3 Toileting(FIM): 3 Transfers (B,C,W/C) (FIM): 4 (met 03/18/17) Toilet/Commode Transfer(FIM): 4 1=Demonstrate adherence to instructed precautions during ADL tasks. 2=Patient will verbalize/demonstrate understanding of assistive devices/ modifications for ADL. 3=Patient will improve strength/tolerance for activity to enable patient to perform ADL's. OT Assisted Goals Assisted Goals Time Frame: April 01, 2017 Eating (FIM): 5 (met-03/23/2017) Eating (QC): 6 (03/23/2017) Groomin (03/23/2017) Oral Hygiene (QC): 6 (03/23/2017) Bathing(FIM): 5 (03/23/2017) Shower/Bathe Self (QC): 4 (03/23/2017) Upper Body Dressing(FIM): 5 (03/23/2017) Upper Body Dressing (QC): 4 (03/23/2017) Lower Body Dressing(FIM): 5 (03/23/2017) Lower Body Dressing (QC): 4 (03/23/2017) On/Off Footwear (QC): 5 (03/23/2017) Toileting(FIM): 4 (03/23/2017) Toileting Hygiene (QC): 6 (03/23/2017) Toilet/Commode Transfer(FIM): 6 (03/23/2017) Toilet/Commode Transfer (QC): 6 (met03/23/2017) Shower Transfer(FIM): 5 (03/23/2017) Comprehension(FIM): 5 (03/23/2017) Expression (FIM): 5 (03/23/2017) Social Interaction(FIM): 4 (03/23/2017) Problem Solving(FIM): 4 (03/23/2017) Additional Goals: 1-Demonstrate ADL Tasks, 2-Verbalize Understanding, 3- ImproveStrength/Daniel 1=Demonstrate adherence to instructed precautions during ADL tasks. 2=Patient will verbalize/demonstrate understanding of assistive devices/ modifications for ADL. 3=Patient will improve strength/tolerance for activity to enable patient to perform ADL's. OT Education/Plan Problem List/Assessment Pt to benefit from skilled OT intervention for ADL training, transfers, strengthening, adaptive equipment training, and home safety education to increase level of independence and allow safe return home. Discharge Recommendations Plan/Recommendations: Continue POC Treatment Plan/Plan of Care Patient would benefit from OT for education, treatment and training to promote independence in ADL's, mobility, safety and/or upper extremity function for ADL' s. Plan of Care: ADL Retraining, Functional Mobility, Group Exercise/Act as Ind, UE Funct Exercise/Act Treatment Duration: April 01, 2017 Visits Per Week: 10-12 Minutes/Day (M-F): 60-90 Minutes/Day (Sat/Meredith): PRN Agreement: Yes Rehab Potential: Good Time/GCodes Start Time: 11:30 Stop Time: 12:00 Total Time Billed (hr/min): 30 Billed Treatment Time 1 visit-FA 1 (15 min) EX 1 (15 min) KARAN BILLS March 23, 2017 11:42
--- NOTE | 2017-03-23 12:06 | Physical Therapy Daily Note ---
PT Daily Note-Current Subjective Pt laying Supine in bed upon arrival. Pt is visiting with Dr Hammond upon arrival. Pt agrees to PT. Pain Numeric Pain Scale: 6 Location: Left Location Body Site: Hip Pain Description: Ache Mental Status Patient Orientation: Person, Place, Situation Transfers Functional [place] Measure 0=Not Assessed/NA 4=Minimal Assistance 1=Total Assistance 5=Supervision or Setup 2=Maximal Assistance 6=Modified [place] 3=Moderate Assistance 7=Complete IndependenceIRFPAI Quality Coding Scale 6 Independent with activity with or without an assistive device 5 Patient requires set up or clean up by helper. Patient completes activity by themselves 4 Supervision or touching assist (CGA). [place] provide cues , steadying assist 3 The helper provides less than half the effort to complete the activity 2 The helper provides more than half the effort to complete the activity 1 Dependent. The helper does all the effort to complete an activity 7 Patient refused to complete or attempt activity 9 The patient did not perform the activity before the current illness or injury 88 Not attempted due to Medical conditions or safety concerns Scootin Rollin Roll Left to Right (QC): 5 Supine to/from Sit: 5 Sit to/from Stand: 5 Sit to Lying (QC): 5 Sit to Stand (QC): 5 Weight Bearing Weight Bearing Restriction: Full Weight Bearing Location Restriction: LE Bilateral Gait Training Does the Patient Walk?: Yes Distance (FIM): 3=150 ft Distance: 175' Walk 10 feet (QC): 5 Walk 50 ft with 2 Turns(QC): 5 Walk 150 ft (QC): 5 Gait Level of Assist: 5 Gait Persons Needed: 1 Gait Assistive Device: FWW Pt walks with slow and steady amish but stiff. Pt has no LOB. Pt fatigues easy. Wheelchair Training Does the Pt Use a Wheelchair?: No Exercises Seated Therapy Exercises: Ankle pumps, Long arc quads, Hip flexion, Kicking activity Seated Reps: 15 Treatments Pt was visiting with Dr Hammond upon arrival. Pt, Dr & PT visited about bladder /catheter needs for going home as well as discharging tomorrow and what pt might need. Pt transferred from Supine to EOB to Standing using FWW at A. Pt ambulated in Therapy Commons using FWW at SBA. Pt completed Seated Ex in chair in Therapy Gym. Pt returned to room to rest and talk to pt regarding any needs for discharge planned tomorrow. Pt is left at EOB with all needs met at end of tx. Assessment Current Status: Fair Progress Pt fatigues easy and still has weakness especially in LLE due to dx. PT Short Term Goals Short Term Goals Time Frame: March 18, 2017 Transfers (B,C,W/C) (FIM): 4 (met 03/18/17) Gait (FIM): 4 (met 03/18/17) Distance (FIM): 3=150 ft Gait Assistive Device: FWW PT Cardiovascular Disease Specialist Goals Cardiovascular Disease Specialist Goals PT Cardiovascular Disease Specialist Goals Time Frame: March 26, 2017 Transfers (B,C,W/C) (FIM): 7 Sit to Lying (QC): 6 Lying-Sitting on Side/Bed(QC): 6 Sit to Stand (QC): 6 Rollin Roll Left to Right (QC): 6 Chair/Chs-dz-Hpxcw Xfer(QC): 6 Car Transfer (QC): 6 Does the Patient Walk: Yes Gait (FIM): 6 Gait distance (FIM): 3=150 ft Walk 10 feet (QC): 6 Walk 10ft-Uneven Surface(QC): 6 Walk 50ft with 2 Turns (QC): 6 Walk 150 ft (QC): 6 Gait Assistive Device: FWW Does the Pt use WC or Scooter?: No Stairs (FIM): 5 # of Steps: 8 1 Step (curb) (QC): 6 4 Steps (QC): 6 12 Steps (QC): 88 Picking up an Object (QC): 88 PT Plan Problem List Problem List: Activity Tolerance, Functional Strength, Safety, Balance, Gait Treatment/Plan Treatment Plan: Continue Plan of Care Treatment Plan: Bed Mobility, Education, Functional Activity Daniel, Functional Strength, Group Therapy, Gait, Safety, Therapeutic Exercise, Transfers Treatment Duration: March 26, 2017 Visits Per Week: 10-15 Minutes/Day (M-F): 60-90 Minutes/Day (Sat/Meredith): prn Safety Risks/Education Patient Education: Gait Training, Correct Positioning, Disease Process, Safety Issues Teaching Recipient: Patient Teaching Methods: Discussion Response to Teaching: Verbalize Understanding Time/GCodes Time In: 1000 Time Out: 1100 Total Billed Treatment Time: 60 Total Billed Treatment visit, EX (15m), FA X2 (30m) & GT (15m) RASHMI OLIVER PTA March 23, 2017 12:06
--- NOTE | 2017-03-23 16:06 | Physical Therapy Daily Note ---
PT Daily Note-Current Subjective Pt is laying Supine in bed upon arrival. Pt agrees to PT. Mental Status Patient Orientation: Person, Place, Situation Transfers Functional [place] Measure 0=Not Assessed/NA 4=Minimal Assistance 1=Total Assistance 5=Supervision or Setup 2=Maximal Assistance 6=Modified [place] 3=Moderate Assistance 7=Complete IndependenceIRFPAI Quality Coding Scale 6 Independent with activity with or without an assistive device 5 Patient requires set up or clean up by helper. Patient completes activity by themselves 4 Supervision or touching assist (CGA). [place] provide cues , steadying assist 3 The helper provides less than half the effort to complete the activity 2 The helper provides more than half the effort to complete the activity 1 Dependent. The helper does all the effort to complete an activity 7 Patient refused to complete or attempt activity 9 The patient did not perform the activity before the current illness or injury 88 Not attempted due to Medical conditions or safety concerns Treatments PT and pt discussed items such as Adaptative Equipment pt would need at home for discharge, HEP for pt and pain management to assist with pain control. PT also discussed with Equal Opportunity Counselor to make sure pt's discharge needs would be ready for tomorrow. Assessment Current Status: Fair Progress Pt is ready for discharge tomorrow and had no additional questions for PT. PT Short Term Goals Short Term Goals Time Frame: March 18, 2017 Transfers (B,C,W/C) (FIM): 4 (met 03/18/17) Gait (FIM): 4 (met 03/18/17) Distance (FIM): 3=150 ft Gait Assistive Device: FWW PT Shelter Goals Shelter Goals PT Coater Operator Goals Time Frame: March 26, 2017 Transfers (B,C,W/C) (FIM): 7 Sit to Lying (QC): 6 Lying-Sitting on Side/Bed(QC): 6 Sit to Stand (QC): 6 Rollin Roll Left to Right (QC): 6 Chair/Naw-we-Rcpzw Xfer(QC): 6 Car Transfer (QC): 6 Does the Patient Walk: Yes Gait (FIM): 6 Gait distance (FIM): 3=150 ft Walk 10 feet (QC): 6 Walk 10ft-Uneven Surface(QC): 6 Walk 50ft with 2 Turns (QC): 6 Walk 150 ft (QC): 6 Gait Assistive Device: FWW Does the Pt use WC or Scooter?: No Stairs (FIM): 5 # of Steps: 8 1 Step (curb) (QC): 6 4 Steps (QC): 6 12 Steps (QC): 88 Picking up an Object (QC): 88 PT Plan Problem List Problem List: Activity Tolerance, Functional Strength, Gait Treatment/Plan Treatment Plan: Continue Plan of Care Treatment Plan: Bed Mobility, Education, Functional Activity Daniel, Functional Strength, Group Therapy, Gait, Safety, Therapeutic Exercise, Transfers Treatment Duration: March 26, 2017 Visits Per Week: 10-15 Minutes/Day (M-F): 60-90 Minutes/Day (Sat/[place]eredith): prn Safety Risks/Education Patient Education: Transfer Techniques, Reviewed Use of Ice, Correct Positioning, Safety Issues Teaching Recipient: Patient Teaching Methods: Discussion Response to Teaching: Verbalize Understanding Time/GCodes Time In: 1400 Time Out: 1430 Total Billed Treatment Time: 30 Total Billed Treatment visit, FA X2 (30m) RASHMI OLIVER PTA March 23, 2017 16:06
[2017-03-23] MEDS: ALFUZOSIN HCL 10 MG TAB (UROXATRAL) PO SCH (16:39)
[2017-03-23 18:34] VITALS: BP 114/62
[2017-03-23] MEDS: TEMAZEPAM 15 MG (RESTORIL) CAP PO SCH (20:38)
[2017-03-23] MEDS: GABAPENTIN 100 MG (NEURONTIN) CAP PO SCH (20:38)
[2017-03-23] MEDS: SIMvastatin 40 MG (ZOCOR) TAB PO SCH (20:38)
[2017-03-23] MEDS: OLANZapine 2.5 MG (ZyPREXA) TAB PO SCH (20:39)
[2017-03-23] MEDS: eZETimibe 10 MG (ZETIA) TABLET PO SCH (20:39)
[2017-03-24] MEDS: inSUlin ASPART (NovoLOG) 1 UNIT/0.01 ML (CHARGE PER UNIT) SC SCH (05:23)
[2017-03-24 05:24] VITALS: BP_SYST 127; BP_SYST 159; BP_DIAS 69; BP_DIAS 86
[2017-03-24] MEDS: PANTOPRAZOLE 40 MG (PROTONIX) TAB PO SCH (05:56)
[2017-03-24] MEDS: oxyCODONE/APAP 10/325MG (PERCOCET 10) TABLET PO PRN (05:56)
[2017-03-24] MEDS: BETHANECHOL 25 MG (URECHOLINE) TAB PO SCH (05:57)
[2017-03-24] MEDS: ISOSORBIDE MONONITRATE 60 MG (IMDUR) TAB PO SCH (06:00)
[2017-03-24] MEDS: ENOXAPARIN 30 MG/0.3 ML (LOVENOX) SYR SC SCH (06:00)
[2017-03-24] MEDS: RT-ALBUTEROL/IPRATROPIUM 3 ML (DUONEB) VIAL INH SCH (07:50)
[2017-03-24] MEDS: RT-FLUTICASONE 110 MCG (FLOVENT) PER PUFF INH SCH (07:50)
[2017-03-24] MEDS ORDERED: OXYC-465 PO (08:33)
[2017-03-24] MEDS ORDERED: NCT14P TD (08:33)
[2017-03-24] MEDS ORDERED: SENN-20 PO (08:33)
[2017-03-24] MEDS ORDERED: LORA1TAB PO (08:33)
--- NOTE | 2017-03-24 08:36 | PM & R (SOAP) Progress Note ---
Subjective Subjective/Events-last exam Patient was seen in his room this AM Discussed case with PRIYA Alcantar d/jamari Current labs and therapy notes reviewed,Current meds reviewed. RX for Pain med and nicotine patch and lorazepam provided Objective Exam Last Set of Vital Signs Vital Signs Date Time Temp Pulse Resp B/P (MAP) Pulse Ox O2 Delivery O2 Flow Rate FiO2 03/24/17 07:50 94 03/24/17 05:24 97.2 75 16 159/86 03/18/17 05:00 Room Air Capillary Refill : Less Than 3 Seconds I&O Intake and Output 03/24/17 00:00 Intake Total 1780 ml Output Total 2100 ml Balance -320 ml Intake Oral 1780 ml Output Urine Total 2100 ml Bladder Scan Volume Amount 662 ml 999 ml 459 ml 238 ml 560 ml General: Alert, Oriented X3, Cooperative, No Acute Distress HEENT: Atraumatic, PERRLA, EOMI, Mucous Memb Moist/[place] Neck: Supple, No JVD Lungs: Clear to Auscultation Heart: Regular Rate Abdomen: Normal Bowel Sounds, Soft, No Tenderness Extremities: Other (trace edema left ankle Hip dressing in place) Neuro: Other (strength limited left leg s/p frx) Results Lab Laboratory Tests 03/21/17 11:12: Glucometer 268H 03/21/17 15:58: Glucometer 163H 03/21/17 21:20: Glucometer 121H 03/22/17 06:18: Glucometer 152H 03/22/17 11:13: Glucometer 146H 03/22/17 16:49: Glucometer 105 03/22/17 21:15: Glucometer 176H 03/23/17 04:09: Glucometer 137H 03/23/17 11:11: Glucometer 138H 03/23/17 16:18: Glucometer 120H 03/23/17 20:41: Glucometer 126H 03/24/17 04:46: Glucometer 143H Assessment/Plan Assessment s/p left hip repair COPD Tobaccoism HTN Vascular dementia Urinary retention being managed with ICP Plan Discharge today to home with [facility] Family and patient has been instructed in ICP F/U with PCP DR Manning and Dr Pena and Orthopedics See orders RON KINNEY MD March 24, 2017 08:36
[2017-03-24] MEDS ORDERED: NICOTINE 14 MG (NICODERM) PATCH TD SCH (09:00)
[2017-03-24] MEDS: NICOTINE PATCH REMOVAL TP SCH (09:06)
[2017-03-24] MEDS: SENNA W/DOCUSATE (SENOKOT S) TABLET PO SCH (09:06)
--- NOTE | 2017-03-24 09:07 | Therapy Team Discharge Summary ---
Therapy Discharge Summary Discharge Recommendations Date of Discharge Therapy D/C Recommendations: Physical Therapy Home Care Occupational Therapy Pt admitted to ARU following left hip fracture. On admission pt required max assist for LE dressing, mod assist for bathing, and min assist for UE dressing. Skilled OT intervention focused on ADL training, transfers, strengthening, adaptive equipment training, and safety education. Pt made good progress with therapy and by discharge is completing ADLs and transfers with modified independence. Pt has met all OT LTG. Pt to discharge home this date. D/C ARU OT at this time. PT Mcc Goals Mcc Goals PT Filling Station Laborer Goals Time Frame: March 26, 2017 Transfers (B,C,W/C) (FIM): 7 Roll Left to Right (QC): 6 Sit to Lying (QC): 6 Lying-Sitting on Side/Bed(QC): 6 Sit to Stand (QC): 6 Chair/Pzu-bq-Vlkly Xfer(QC): 6 Car Transfer (QC): 6 Does the Patient Walk: Yes Gait (FIM): 6 Gait distance (FIM): 3=150 ft Walk 10 feet (QC): 6 Walk 10ft-Uneven Surface(QC): 6 Walk 50ft with 2 Turns (QC): 6 Walk 150 ft (QC): 6 Gait Assistive Device: FWW Does the Pt use WC or Scooter?: No Stairs (FIM): 5 # of Steps: 8 1 Step (curb) (QC): 6 4 Steps (QC): 6 12 Steps (QC): 88 Picking up an Object (QC): 88 OT Mcc Goals Mcc Goals Time Frame: April 01, 2017 Eating (FIM): 5 (met-03/23/2017) Eating (QC): 6 (met-03/23/2017) Oral Hygiene (QC): 6 (met-03/23/2017) Grooming(FIM): 6 (met-03/23/2017) Bathing(FIM): 5 (met-03/23/2017) Shower/Bathe Self (QC): 4 (met-03/23/2017) Upper Body Dressing(FIM): 5 (met-03/23/2017) Upper Body Dressing (QC): 4 (met-03/23/2017) Lower Body Dressing(FIM): 5 (met-03/23/2017) Lower Body Dressing (QC): 4 (met-03/23/2017) On/Off Footwear (QC): 5 (03/23/2017) Toileting(FIM): 4 (03/23/2017) Toileting Hygiene (QC): 6 (03/23/2017) Toilet/Commode Transfer(FIM): 6 (03/23/2017) Toilet/Commode Transfer (QC): 6 (03/23/2017) Shower Transfer(FIM): 5 (03/23/2017) Comprehension(FIM): 5 (03/23/2017) Expression (FIM): 5 (03/23/2017) Social Interaction(FIM): 4 (03/23/2017) Problem Solving(FIM): 4 (03/23/2017) Additional Goals: 1-Demonstrate ADL Tasks, 2-Verbalize Understanding, 3- ImproveStrength/Daniel 1=Demonstrate adherence to instructed precautions during ADL tasks. 2=Patient will verbalize/demonstrate understanding of assistive devices/ modifications for ADL. 3=Patient will improve strength/tolerance for activity to enable patient to perform ADL's. Speech Mcc Goals Filling Station Laborer Goals Comprehension: 5 (03/23/2017) Expression: 5 (03/23/2017) Social Interaction: 4 (03/23/2017) Problem Solvin (03/23/2017) LAINE JOHANSEN OT March 24, 2017 09:07
[2017-03-24] MEDS: LORazepam 1 MG (ATIVAN) TAB PO SCH (09:13)
[2017-03-24] MEDS: FLUoxetine HCL 20 MG (PROzac) CAP PO SCH (09:13)
[2017-03-24] MEDS: CLOPIDOGREL 75 MG (PLAVIX) TABLET PO SCH (09:13)
[2017-03-24] MEDS: IBUPROFEN TABLET 200 MG TAB PO SCH (09:13)
[2017-03-24] MEDS: ASPIRIN E.C. 81 MG (ECOTRIN) TAB PO SCH (09:13)
[2017-03-24] MEDS: PIOGLITAZONE 30MG (ACTOS) TAB PO SCH (09:13)
[2017-03-24] MEDS: PHENYTOIN 100 MG (DILANTIN) CAP PO SCH (09:14)
[2017-03-24] MEDS: TIMOLOL MALEATE 0.5% 5 ML (TIMOPTIC) BTL OU SCH (09:14)
--- NOTE | 2017-03-24 09:45 | Progress Note-Urology ---
Progress Note-Urology Progress Notes/Assess & Plan Progress/Assessment & Plan patient voices,to me yesterday his decision and willingness to do ISC. Nurses to start teaching yesterday Final Diagnosis urine retention ALBERT KNOTT MD March 24, 2017 9:45 am
--- NOTE | 2017-03-24 10:11 | Therapy Team Discharge Summary ---
Therapy Discharge Summary Discharge Recommendations Date of Discharge Therapy D/C Recommendations: Physical Therapy Home Care Physical Therapy This patient has been seen by skilled PT post fall sustaining a left hip fracture. Upon admission, he required max assist with transfers and his gait FIM was a 2; he was unable to attempt stairs at evaluation. Treatment consisted of bed mobility training, transfer training, functional gait progression and functional strengthening/activity tolerance. He did make good progress and at sd, he was mod indep with transfers, SBA with gait and able to go up/down 4 steps with CGA. He did not fully meet PT goals and is to discharge home with follow up [facility] PT. PT Sorter Packer Goals Penitentiary Goals PT Sorter Packer Goals Time Frame: March 26, 2017 Transfers (B,C,W/C) (FIM): 7 (unmet, scored a 6) Roll Left to Right (QC): 6 Sit to Lying (QC): 6 Lying-Sitting on Side/Bed(QC): 6 Sit to Stand (QC): 6 Chair/Ypt-hm-Jxmgl Xfer(QC): 6 Car Transfer (QC): 6 Does the Patient Walk: Yes Gait (FIM): 6 (unmet, scored a 5) Gait distance (FIM): 3=150 ft Walk 10 feet (QC): 6 Walk 10ft-Uneven Surface(QC): 6 Walk 50ft with 2 Turns (QC): 6 Walk 150 ft (QC): 6 Gait Assistive Device: FWW Does the Pt use WC or Scooter?: No Stairs (FIM): 5 (unmet scored a 2) # of Steps: 8 1 Step (curb) (QC): 6 4 Steps (QC): 6 12 Steps (QC): 88 Picking up an Object (QC): 88 OT Sorter Packer Goals Penitentiary Goals Time Frame: April 01, 2017 Eating (FIM): 5 (met-03/23/2017) Eating (QC): 6 (met-03/23/2017) Oral Hygiene (QC): 6 (met-03/23/2017) Grooming(FIM): 6 (met-03/23/2017) Bathing(FIM): 5 (met-03/23/2017) Shower/Bathe Self (QC): 4 (met-03/23/2017) Upper Body Dressing(FIM): 5 (met-03/23/2017) Upper Body Dressing (QC): 4 (met-03/23/2017) Lower Body Dressing(FIM): 5 (03/23/2017) Lower Body Dressing (QC): 4 (03/23/2017) On/Off Footwear (QC): 5 (03/23/2017) Toileting(FIM): 4 (03/23/2017) Toileting Hygiene (QC): 6 (03/23/2017) Toilet/Commode Transfer(FIM): 6 (03/23/2017) Toilet/Commode Transfer (QC): 6 (03/23/2017) Shower Transfer(FIM): 5 (03/23/2017) Comprehension(FIM): 5 (03/23/2017) Expression (FIM): 5 (03/23/2017) Social Interaction(FIM): 4 (03/23/2017) Problem Solving(FIM): 4 (03/23/2017) Additional Goals: 1-Demonstrate ADL Tasks, 2-Verbalize Understanding, 3- ImproveStrength/Daniel 1=Demonstrate adherence to instructed precautions during ADL tasks. 2=Patient will verbalize/demonstrate understanding of assistive devices/ modifications for ADL. 3=Patient will improve strength/tolerance for activity to enable patient to perform ADL's. Speech Penitentiary Goals Penitentiary Goals Comprehension: 5 (03/23/2017) Expression: 5 (03/23/2017) Social Interaction: 4 (03/23/2017) Problem Solvin (03/23/2017) KARAN GAYLE PT March 24, 2017 10:11
== END 2017-03-24 10:10 | disposition home health service (06) | DRG 561 ==
LOC: ENPENDDIS 03-24 11:00
PROVIDERS: ADMIT Internal Medicine; ATTEND Physical Medicine & Rehabilitation
DX: S72.142D Displaced intertrochanteric fracture of left femur, subsequent encounter for closed fracture with routine healing (principal); N40.1 Benign prostatic hyperplasia with lower urinary tract symptoms; N31.9 Neuromuscular dysfunction of bladder, unspecified; R33.9 Retention of urine, unspecified; G40.909 Epilepsy, unspecified, not intractable, without status epilepticus; I25.10 Atherosclerotic heart disease of native coronary artery without angina pectoris; F17.210 Nicotine dependence, cigarettes, uncomplicated; J44.9 Chronic obstructive pulmonary disease, unspecified; I10 Essential (primary) hypertension; E11.9 Type 2 diabetes mellitus without complications; F01.50 Vascular dementia, unspecified severity, without behavioral disturbance, psychotic disturbance, mood disturbance, and anxiety; Z95.1 Presence of aortocoronary bypass graft; Z95.5 Presence of coronary angioplasty implant and graft
CPT/HCPCS: 36415; 73502; 80053; 82962; 94640; 94760

== ENCOUNTER 2017-07-23 05:14 | Inpatient (IN) | payer MEDICARE, MEDICAID ==
[~2017-07-23] VITALS: Ht 167.6 cm; Wt 71.7 kg
[~2017-07-23 05:14] MED LIST changes: +CIPR-225 PO; +ESOM10SU PO; +FLUO40CA12 PO; +FLUT16SP22 NS; +IBUP-1779 PO; +MAGN250T35 PO; +MULT1CAP27 PO; +NICO-587 TD; +NYST1000 PO; -OLAN2.5T19 PO; +OLAN2.5T27 PO; +OXYC10TA85 PO; +PANT40TA2 PO; +POLY17PO6 PO; +SENN-20 PO; +SENN8.6T68 PO; +TAMS0.4C98 PO; +TIMO5DRO27 OU; +TRAZ-28 PO
[2017-07-23 06:20] VITALS: BP 108/59
--- OUTSIDE RECORDS SUMMARY | 2017-07-23 06:37 | XMS REPORT | Clinical Summary ---
Author Author [facility] Organization [facility] Address Unknown Phone Unavailable Care Team Providers Care Director Of Manufacturing Name Role Phone PCP Unavailable Source Comments Some departments are not documenting in the electronic medical record. If you do not see the information that you expected, contact Release of Information in the Health Information Management department at [phone] for further assistance in locating additional records.[facility] Allergies Active Allergy Reactions Severity Noted Date Comments Penicillins HIVES High 04/09/2008 Diazepam ANAPHYLAXIS, SEE COMMENTS High 07/15/2005 Allergy recorded in SMS: Valium~Reactions: STOPS BREATHING Terazosin UNKNOWN 04/09/2008 Pt states he has allergy, but can't recall reaction. Current Medications Prescription Sig. Disp. Refills Start End Date Status Date aspirin 81 mg chew tablet Take 1 Tab by mouth Every Active Morning. zolpidem (AMBIEN) 10 mg Take 1 Tab by mouth At Active tablet Bedtime Daily. bethanechol (URECHOLINE) Take 1 Tab by mouth Four Active 25 mg tablet Times Daily. clopidogrel (PLAVIX) 75 Take 1 Tab by mouth Every Active mg Tab Morning. tamsulosin (FLOMAX) 0.4 Take 1 Cap by mouth daily Active mg capsule with dinner. fluoxetine (PROZAC) 20 mg Take 1 Tab by mouth Active tablet daily. loratadine (CLARITIN) 10 Take 1 Tab by mouth Every Active mg tablet Morning. vitamins, multiple Cap Take 1 Cap by mouth Active Daily. simvastatin (ZOCOR) 80 mg Take 40 mg by mouth at Active tablet bedtime daily. fenofibrate Take 1 Tab by mouth Active nanocrystallized (TRICOR) Daily. 145 mg tablet ezetimibe (ZETIA) 10 mg Take 1 Tab by mouth At Active tablet Bedtime Daily. ramipril (ALTACE) 10 mg Take 1 Cap by mouth Active capsule Daily. NITROQUICK 0.4 mg tablet Take 1 Tab by mouth Every Active 5 Min as needed for Chest Pain. albuterol (PROVENTIL; Inhale 2 Puffs by mouth Active VENTOLIN) 90 As Needed. mcg/Actuation inhaler timolol (BETIMOL) 0.5 % Apply 1 Drop to both eyes Active ophthalmic solution Twice Daily. use in affected eye(s) isosorbide mononitrate SR Take 60 mg by mouth Twice Active (IMDUR) 60 mg tablet Daily. OLANZapine (ZYPREXA) 2.5 Take 2.5 mg by mouth at Active mg tablet bedtime daily. Magnesium 250 mg Tab Take 1 Tab by mouth three Active times daily. pioglitazone (ACTOS) 30 Take 30 mg by mouth every Active mg tablet morning. phenytoin SR (DILANTIN) Take 100 mg by mouth at Active 100 mg capsule bedtime daily. esomeprazole DR(+) Take 40 mg by mouth every Active (NEXIUM) 40 mg capsule morning. LORazepam (ATIVAN) 1 mg Take 1 mg by mouth every Active tablet morning. naproxen (NAPROSYN) 250 Take 250 mg by mouth Active mg tablet every morning. fluticasone (FLOVENT HFA) Inhale 1 Puff by mouth Active 110 mcg/actuation inhaler twice daily. 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 (L) URS w/ Laser Lithotripsy -- 07/14/2103; Dr. Santizo -- pending. L ast Assessment & Plan: (L) Ureteroscopy w/ Laser Lithotripsy -- 07/14/2013; Dr. Santizo Possible risks & complications of surgery including but not limited to bleeding, infection, allergic reactions, heart and blood pressure problems, ureteral injury, inability to fragment stone, residual stone fragments, need for further procedures, stent irritation, injury to contiguous structures, and anesthesia complications including, but not limited to deep venous thrombosis, heart attack, stroke, pulmonary embolism, respiratory arrest, and . Pt demonstrates an understanding & wishes to proceed. Surgical consent signed in clinic today. Hold ASA, anticoagulants, blood thinners, NSAIDs, fish oil, & herbal supplements, etc. x 1 wk prior to surgery, unless otherwise directed. Pre-op abx, Levaquin 500 mg IV, on-call to OR day of surgery. Labs: reviewed in O2 EMR. Imaging: [facility] PACS. Consults: Cardiology: Walter Oconnor MD ([place], [place]) -- Scanned to Cardiology Referral in EMR. Pulmonary: -- pending All questions answered to his satisfaction. Family History Medical History Relation Name Comments Cancer Brother Diabetes Mother Relation Name Status Comments Brother Mother Social History Tobacco Use Types Packs/Day Years Used Date Former Smoker Cigarettes 2 30 Quit: 03/23/1994 Smokeless Tobacco: Never Used Alcohol Use Drinks/Week oz/Week Comments No Sex Assigned at Date Recorded Not on file Last Filed Vital Signs Vital Sign Reading Time Taken Blood Pressure 134/76 07/31/2013 2:04 PM CDT Pulse 70 07/31/2013 2:04 PM CDT Temperature 36.9 C (98.4 F) 07/13/2013 2:30 PM CDT Respiratory Rate - - Oxygen Saturation 95% 07/13/2013 2:30 PM CDT Inhaled Oxygen - - Concentration Weight 88 kg (194 lb) 04/07/2016 1:25 PM CDT Height 167.6 cm (5' 6") 04/07/2016 1:25 PM CDT Body Mass Index 31.31 04/07/2016 1:25 PM CDT Plan of Treatment Health Maintenance Due Date Last Done Comments HEPATITIS C SCREENING 1949 PHYSICAL (COMPREHENSIVE) 1956 EXAM PERTUSSIS VACCINE 1960 TETANUS VACCINE 1966 COLORECTAL CANCER 1999 SCREENING SHINGLES VACCINE 2009 ABDOMINAL AORTIC ANEURYSM 2014 SCREENING PREVNAR/PNEUMOVAX (#1) 2014 INFLUENZA VACCINE 07/09/2017 Results Not on filefrom Last 3 Months
[2017-07-23] MEDS: NS IV 1000 ML 1,000 ML IV SCH ×2 (07:44→23:30)
[2017-07-23] MEDS: fentaNYL INJECTION 100 MCG/2 ML AMP IVP PRN ×3 (07:44→19:30)
[2017-07-23 08:00] VITALS: BP 101/61
[2017-07-23] MEDS ORDERED: RAMI10CA PO (09:14)
[2017-07-23] MEDS ORDERED: FENO145T20 PO (09:14)
[2017-07-23] MEDS ORDERED: PHEN100C11 PO (09:14)
[2017-07-23] MEDS ORDERED: RANI150T11 PO (09:14)
[2017-07-23] MEDS ORDERED: CLOP75TA28 PO (09:14)
[2017-07-23] MEDS ORDERED: PIOG30TA26 PO (09:14)
[2017-07-23] MEDS ORDERED: TEMA7.5C PO (09:14)
[2017-07-23] MEDS ORDERED: FLUO20CA25 PO (09:14)
[2017-07-23] MEDS ORDERED: EZET10TA27 PO (09:14)
[2017-07-23] MEDS ORDERED: OXYC-465 PO (09:14)
[2017-07-23] MEDS ORDERED: ASPI-983 PO (09:14)
[2017-07-23] MEDS ORDERED: NITR0.4T39 SL (09:14)
[2017-07-23] MEDS ORDERED: GABA-488 PO (09:14)
[2017-07-23] MEDS ORDERED: OXYC20TA54 PO (09:14)
[2017-07-23] MEDS ORDERED: RT-ALBUINH INH (11:34)
--- NOTE | 2017-07-23 11:35 | History & Physical-Hospitalist ---
HPI History of Present Illness: HPI/Chief Complaint CC: Right hip fracture HPI: This is a 66 yoWM pt known to me from previous hospitalization after left hip fracture repair. He fell this morning and began to have right hip pain so brought to [facility] ER and questionable fracture on CT scan. body engineer: Surgery is waiting on CT images SW Review: Surgery risks were discussed with the pt and he claims to understand Patient Interview: Pt denies pain if he is not moving. Pt states he has right hip pain Pt states he was not at a nursing facility, he was at home Physical exam stable Pt denies having O2 at home. Pt states that he is still smoking and he states that he has tried to quit with no avail Pain meds discussed Plan: Palliative care consult? Scribed by Sarah Montana under the direct supervision of Dr. Escoto. Source: patient, RN/MD Exam Limitations: clinical condition Date Seen 07/23/17 Time Seen by Provider: 11:00 Attending Physician Kelly Escoto Pankaj K MD Referring Physician Date of Admission Jul 23, 2017 at 06:25 Home Medications & Allergies Home Medications Reviewed patient Home Medication Reconciliation Form Allergies Allergies Coded Allergies Penicillins (Verified Allergy, Unknown, 04/22/17) diazepam (Unverified Allergy, Unknown, 03/07/17) doxycycline (Unverified Allergy, Unknown, RASH, 03/07/17) phenobarbital (Unverified Allergy, Unknown, 03/07/17) RELAXES ME TOO MUCH piperacillin (Unverified Allergy, Unknown, RASH, PT HAS RECEIVED CEFAZOLIN IN THE PAST W/O ISSUE, 03/08/17) sulfamethoxazole (Verified Allergy, Unknown, 04/22/17) terazosin (Unverified Allergy, Unknown, 03/07/17) CHEST PAIN Past Nvrgozm-Czstwp-Aogtlx Hx Patient Social History Marrital Status: Employed/Student: retired Smoking Status: Current Everyday Smoker Type Used: Cigarettes 2nd Hand Smoke Exposure: Yes Recent Foreign Travel: No Contact w/other who traveled: No Recent Hopitalizations: Yes Recent Infectious Disease Expo: No Immunizations Up To Date Date of Pneumonia Vaccine: Nov 08, 2016 Date of Influenza Vaccine: Aug 08, 2012 Seasonal Allergies Seasonal Allergies: No Surgeries Yes Appendectomy, Gallbladder, Orthopedic, Penile Implant, Renal, Transurethral Resection Respiratory Yes COPD Currently Using CPAP: No Currently Using BIPAP: No Cardiovascular Yes (CABG IN 1999; 16 CARDIAC STENTS) Coronary Artery Disease, High Cholesterol, Hypertension Neurological Yes Headaches /Migraines, Seizure Disorder Reproductive System Hx Reproductive Disorders: Yes (ED--PENILE IMPLANT) Sexually Transmitted Disease: No HIV/AIDS: No Genitourinary Yes Benign Prostatic Hyperpl, Kidney Stones Gastrointestinal Yes Gastroesophageal Reflux, Ulcer Musculoskeletal No Arthritis Endocrine History of Endocrine Disorders: Yes Endocrine Disorders: Diabetes, Non-Insulin dep HEENT History of HEENT Disorders: Yes HEENT Disorders: Cataract, Glaucoma Loss of Vision: Denies Hearing Impairment: Hard of Hearing Cancer No Psychosocial History of Psychiatric Problem: Yes Behavioral Health Disorders: Anxiety, Bipolar, Depression Integumentary History of Skin or Integumenta: No Blood Transfusions History of Blood Disorders: No Adverse Reaction to a Blood Tr: No Family Medical History Family Hx: Patient reports no known family medical history. Review of Systems Constitutional: see HPI, dizziness EENTM: no symptoms reported Respiratory: no symptoms reported Cardiovascular: no symptoms reported Gastrointestinal: no symptoms reported Genitourinary: no symptoms reported Musculoskeletal: joint pain Psychiatric/Neurological: No Symptoms Reported All Other Systems Reviewed Negative Unless Noted: Yes Physical Exam Physical Exam Vital Signs Vital Sign - Last 12Hours 07/23/17 06:20 Temp 97.8 Pulse 100 Resp 18 B/P (MAP) 108/59 Pulse Ox 96 O2 Delivery Room Air Capillary Refill : General Appearance: No Apparent Distress, WD/WN, Chronically ill, Other ( extreme end-stage status appearance) Eyes: Bilateral Eye Normal Inspection, Bilateral Eye PERRL HEENT: PERRL/EOMI, Normal ENT Inspection, Pharynx Normal Neck: Full Range of Motion, Normal Inspection, Non Tender, Supple, Carotid Bruit Respiratory: Chest Non Tender, Lungs Clear, No Accessory Muscle Use, No Respiratory Distress, Decreased Breath Sounds Cardiovascular: Regular Rate, Rhythm, No Edema, No Gallop, No JVD, No Murmur, Normal Peripheral Pulses Gastrointestinal: Normal Bowel Sounds, No Organomegaly, No Pulsatile Mass, Non Tender, Soft Back: Normal Inspection, No CVA Tenderness, No Vertebral Tenderness Extremity: Normal Capillary Refill, Normal Inspection, Normal Range of Motion ( except right leg due to pain), Non Tender, No Calf Tenderness, No Pedal Edema Neurologic/Psychiatric: Alert, Oriented x3, No Motor/Sensory Deficits, Depressed Affect, Other (poor recall not recognize me) Skin: Normal Color, Warm/Dry Lymphatic: No Adenopathy Assessment/Plan Admission Diagnosis Assessment: Suspicion for right hip fracture after fall this morning at home h/o resistant UTI with severe urinary retention requiring Ulloa catheter indwelling placement in the past Chronic anemia usual 8.5 hgb 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 Peña Reconcile all home meds Pain control Very poor prognosis Palliative care consult KELLY ESCOTO DO Jul 23, 2017 11:35
[2017-07-23] MEDS: RT-ALBUTEROL/IPRATROPIUM 3 ML (DUONEB) VIAL INH SCH ×3 (11:38→20:54)
[2017-07-23 12:00] VITALS: BP 130/69
[2017-07-23] MEDS ORDERED: TEMAZEPAM 7.5 MG CAP (RESTORIL) PO PRN (12:00)
[2017-07-23] MEDS ORDERED: NITROGLYCERIN 0.4 MG SL TABS BTL 25'S SL PRN (12:00)
[2017-07-23] MEDS ORDERED: RT-ALBUTEROL HFA (VENTOLIN) PER PUFF IH PRN (12:00)
--- NOTE | 2017-07-23 12:27 | Consultation-Cardiology ---
HPI-Cardiology Cardiology Consultation: Date of Consultation 07/23/17 Time Seen by Provider: 08:30 Date of Admission Attending Physician Kelly Hartman DO Admitting Physician Claus Couch MD Consulting Physician CODY HOPPER MD, MA. FACP, FACC, FSCAI, CCDS Physician requesting consult: Dr Hartman HPI: Chief Complaint: Reason for consultation: Preop cardiac eval HPI: 66 yo man admitted with R hip fracture after he lost balance at home and fell. Denies loss of consciousness. Does not report any recent cp or palp or shortness of breath. Lives at home by self. Activity is limited on account of back and hip pain. Received help for activities of daily life from home care providers Review of Systems-Cardiology Review of Systems Constitutional: malaise, tiredness, No weight loss Eyes: No vision change Ears/Nose/Throat: No ear discharge, No nasal drainage, No recent hearing loss Respiratory: As described under HPI Cardiovascular: As described under HPI Gastrointestinal: No constipation, No diarrhea, No difficulty swallowing, No vomiting Genitourinary: No hematuria, No urine frequency changes Musculoskeletal: back pain (chronic), joint pain (chronic) Skin: No rash, No ulcerations Psychiatric/Neurological: No seizure, No focal weakness, No syncope Hematologic: No bleeding abnormalities All Other Systems Reviewed Negative Unless Noted: Yes KZA-Yqilvt-Kkkibl Hx Patient Social History Marrital Status: Employed/Student: retired Smoking Status: Current Everyday Smoker Type Used: Cigarettes 2nd Hand Smoke Exposure: Yes Recent Foreign Travel: No Recent Infectious Disease Expo: No Immunizations Up To Date Date of Pneumonia Vaccine: Nov 08, 2016 Date of Influenza Vaccine: Aug 08, 2012 Past Medical History PMH As described under Assessment. Family Medical History Family Medical History: He does not report fam h/o early CAD Family History: Patient reports no known family medical history. Allergies and Home Medications Allergies Coded Allergies: Penicillins (Verified Allergy, Unknown, 04/22/17) diazepam (Unverified Allergy, Unknown, 03/07/17) doxycycline (Unverified Allergy, Unknown, RASH, 03/07/17) phenobarbital (Unverified Allergy, Unknown, 03/07/17) RELAXES ME TOO MUCH piperacillin (Unverified Allergy, Unknown, RASH, PT HAS RECEIVED CEFAZOLIN IN THE PAST W/O ISSUE, 03/08/17) sulfamethoxazole (Verified Allergy, Unknown, 04/22/17) terazosin (Unverified Allergy, Unknown, 03/07/17) CHEST PAIN Home Medications Albuterol Sulfate 1 Puff Puff, 2 PUFF INH Q4H PRN for SHORTNESS OF BREATH, ( Reported) Aspirin 81 Mg Tablet.dr, 81 MG PO DAILY, (Reported) Bethanechol Chloride 25 Mg Tablet, 25 MG PO QID, (Reported) Clopidogrel Bisulfate 75 Mg Tablet, 75 MG PO DAILY, (Reported) Ezetimibe 10 Mg Tablet, 10 MG PO HS, (Reported) Fenofibrate Nanocrystallized 145 Mg Tablet, 145 MG PO DAILY, (Reported) Fluoxetine HCl 20 Mg Capsule, 40 MG PO DAILY, (Reported) TAKES 2 (20MG) CAPSULES Fluticasone Propionate 1 Ea Aero, 1 PUFF INH BID, (Reported) Fluticasone Propionate 16 Gm [place].susp, 2 SPRAYS NS DAILY, (Reported) Gabapentin 300 Mg Capsule, 300 MG PO HS, (Reported) Isosorbide Mononitrate 60 Mg Tab, 60 MG PO BID, (Reported) Lorazepam 1 Mg Tablet, 1 MG PO BID, (Reported) Multivitamin 1 Each Capsule, 1 CAP PO DAILY, (Reported) Nitroglycerin 0.4 Mg Tab.subl, 0.4 MG SL UD PRN for CHEST PAIN, (Reported) Olanzapine 2.5 Mg Tablet, 2.5 MG PO HS, (Reported) Oxycodone HCl 20 Mg Tab.er.12h, 20 MG PO BID, (Reported) Oxycodone HCl/Acetaminophen 1 Each Tablet, 1 TAB PO Q4H PRN for BREAKTHROUGH PAIN, (Reported) Phenytoin Sodium Extended 100 Mg Capsule, 200 MG PO BID, (Reported) TAKES 2 (100MG) CAPSULES Pioglitazone HCl 30 Mg Tablet, 30 MG PO DAILY, (Reported) Ramipril 10 Mg Capsule, 10 MG PO DAILY, (Reported) Ranitidine HCl 150 Mg Tablet, 150 MG PO HS, (Reported) Simvastatin 40 Mg Tablet, 40 MG PO 1800, (Reported) Tamsulosin HCl 0.4 Mg Cap, 0.4 MG PO HS, (Reported) Temazepam 7.5 Mg Capsule, 7.5 MG PO HS PRN for INSOMNIA, (Reported) Timolol 5 Ml Drops, 1 DROP OU BID, (Reported) 0.5% Trazodone HCl 50 Mg Tablet, 50 MG PO HS, (Reported) Physical Exam-Cardiology Physical Exam Vital Signs/I&O Vital Sign - Last 12Hours 07/23/17 07/23/17 06:20 08:00 Temp 97.8 98.9 Pulse 100 100 Resp 18 12 B/P (MAP) 108/59 101/61 Pulse Ox 96 93 O2 Delivery Room Air Room Air Capillary Refill : Constitutional: AAO x 3, well-developed, well-nourished HEENT: PERRL, other (edentulous jaws), EOMI Neck: carotid pulses are 2 + bilaterally, with good upstrokes Respiratory: No accessory muscle use, other (good bilat air entry) Cardiovascular: regular rate-rhythm, S1 and S2, systolic murmur (faint STEVE at cardiac base) Gastrointestinal: No tender, soft, No guarding, No rebound, audible bowel sounds Extremities: No clubbing, No cyanosis, No significant edema Neurologic/Psychiatric: grossly intact (power appears symmetric on both sides. We did not attempt any motion at the hip joints) Skin: No rash on exposed areas, No ulcerations on exposed areas ECG Impression ECG Comment ECG on 07/23/17: NSR, no evidence of acute ischemia A/P-Cardiology Assessment/Admission Diagnosis CAD: H/o CABG in 2004 at [facility] with several stents post CABG most recently in 2011 per pt report (he reports [address]) Dr. Oconnor is his primary material manager LVEF 55-60% and mild MR on echo of 07/23/17 HLP - statin tx HTN COPD Tobaccoism - chronic DM II Joint and back pain Non-syncopal falls [place]' Palsy Discussion and Recomendations * Cardiac risk for noncardiac surgery is estimated to be intermediate. I discussed his cardiac risk with him. He understands and wishes to proceed * We advised him to quit smoking * Continue aspirin, if ok with the surgical service * Monitor labs CODY HOPPER MD FACP [facility] CCDS Jul 23, 2017 12:27
--- NOTE | 2017-07-23 13:13 | Diagnostic Imaging Report ---
PROCEDURE: CT right lower extremity without contrast. TECHNIQUE: Axially acquired CT was obtained through the right lower extremity without intravenous contrast. Coronal and sagittal reformations were also performed. INDICATION: Fall. Right hip pain. FINDINGS: There is an acute fracture with no significant displacement seen through the posterior aspect of the greater trochanter. The fracture line does not the appear to extend through the femoral neck itself. There is the no fracture in the acetabulum. No subluxation or dislocation. Mild degenerative change at the SI joint is seen on the right side. Note is made of penile prosthesis in place. IMPRESSION: There is a fracture through the posterior aspect of the greater trochanter, with minimal extension into the femoral neck. There is no evidence of a complete fracture through the intertrochanteric line or the femoral neck. MRI evaluation can help further in assessment of the exact extension of the fracture. Report faxed to [facility] for delivery to floor at 1:10 p.m. 07/23/2017/cb Dictated by: Dictated on workstation # [id number]
[2017-07-23] MEDS: BETHANECHOL 25 MG (URECHOLINE) TAB PO SCH ×3 (13:29→20:33)
[2017-07-23] MEDS ORDERED: RT-ALBUTEROL SULF 2.5 MG/3 ML PRE-MIX VIAL IH PRN (13:30)
[2017-07-23] MEDS: oxyCODONE/APAP 10/325MG (PERCOCET 10) TABLET PO PRN ×2 (13:30→17:43)
[2017-07-23 16:00] VITALS: BP 119/65
--- NOTE | 2017-07-23 16:52 | Occ Therapy Progress Note ---
Therapy Progress Note 1605 OT orders received per protocol for recent change in care level. Nursing recommending holding OT evaluation until decisions are made regarding management of hip fx. Pt will be NPO after midnight in case he goes to surgery tomorrow. ALMA DELIA LOVE OT Jul 23, 2017 16:52
[2017-07-23] MEDS: ALFUZOSIN HCL 10 MG TAB (UROXATRAL) PO SCH (17:43)
[2017-07-23] MEDS: SIMvastatin 40 MG (ZOCOR) TAB PO SCH (17:43)
[2017-07-23 20:20] VITALS: BP 119/74
[2017-07-23] MEDS: TIMOLOL MALEATE 0.5% 5 ML (TIMOPTIC) BTL OU SCH (20:30)
[2017-07-23] MEDS: PHENYTOIN 100 MG (DILANTIN) CAP PO SCH (20:31)
[2017-07-23] MEDS: OLANZapine 2.5 MG (ZyPREXA) TAB PO SCH (20:31)
[2017-07-23] MEDS: LORazepam 1 MG (ATIVAN) TAB PO SCH (20:31)
[2017-07-23] MEDS: GABAPENTIN 300 MG (NEURONTIN) CAP PO SCH (20:31)
[2017-07-23] MEDS: traZODone 50 MG (DESYREL) TAB PO SCH (20:32)
[2017-07-23] MEDS: ISOSORBIDE MONONITRATE 60 MG (IMDUR) TAB PO SCH (20:33)
[2017-07-23] MEDS: eZETimibe 10 MG (ZETIA) TABLET PO SCH (20:33)
[2017-07-23] MEDS: FAMOTIDINE 20 MG (PEPCID) TABLET PO SCH (20:33)
[2017-07-23] MEDS: oxyCODONE ER 20 MG (OxyCONTIN CR) TAB PO SCH (20:33)
[2017-07-23] MEDS: RT-FLUTICASONE 110 MCG (FLOVENT) PER PUFF INH SCH (20:54)
[2017-07-23] MEDS ORDERED: OXYCODONE HCL 20 MG PO SCH (21:00)
[2017-07-23] MEDS ORDERED: NON-FORMULARY MEDICATION 1 EA EA (Tamsulosin HCl (Flomax) 0.4 MG) PO SCH (21:00)
[2017-07-23] MEDS ORDERED: raNItidine (ZANTAC) 150 MG TAB NON-FORMULARY PO SCH (21:00)
[2017-07-23] MEDS ORDERED: TIMOLOL OU SCH (21:00)
[2017-07-24] VITALS: BP 128/59
[2017-07-24 04:00] VITALS: BP 135/73
[2017-07-24 06:03] LABS: BASOPHILS % (AUTO) 0 % (0-10); EOSINOPHILS % (AUTO) 1 % (0-10); LYMPHOCYTES # (AUTO) 1.6 X 10^3 (1.0-4.0); LYMPHOCYTES % (AUTO) 22 % (12-44); MEAN CORPUSCULAR HEMOGLOBIN 25 PG (25-34); MEAN CORPUSCULAR HGB CONC 31 G/DL (32-36); MEAN CORPUSCULAR VOLUME 80 FL (80-99); MEAN PLATELET VOLUME 7.5 FL (7.4-10.4); MONOCYTES # (AUTO) 0.7 X 10^3 (0.0-1.0); MONOCYTES % (AUTO) 9 % (0-12); NEUTROPHILS # (AUTO) 5.1 X 10^3 (1.8-7.8); NEUTROPHILS % (AUTO) 68 % (42-75); PLATELET COUNT 630 10^3/uL (130-400); RED CELL DISTRIBUTION WIDTH 16.3 % (10.0-14.5); WHITE BLOOD COUNT 7.5 10^3/uL (4.3-11.0)
[2017-07-24 06:25] LABS: ALANINE AMINOTRANSFERASE 24 U/L (0-55); ALBUMIN 2.8 GM/DL (3.2-4.5); ANION GAP 8 MMOL/L (5-14); ASPARTATE AMINO TRANSFERASE 33 U/L (5-34); BILIRUBIN,TOTAL 0.2 MG/DL (0.1-1.0); BLOOD UREA NITROGEN 10 MG/DL (7-18); BUN/CREATININE RATIO 16; CALCIUM 8.6 MG/DL (8.5-10.1); CARBON DIOXIDE 24 MMOL/L (21-32); CHLORIDE 104 MMOL/L (98-107); CREATININE SERUM 0.64 MG/DL (0.60-1.30); GFR ESTIMATED > 60; GLUCOSE 169 MG/DL (70-105); POTASSIUM 3.9 MMOL/L (3.6-5.0); SODIUM 136 MMOL/L (135-145); TOTAL PROTEIN 5.9 GM/DL (6.4-8.2)
[2017-07-24] MEDS: MULTIVIT W/MINERALS TAB (THERAGRAN M) PO SCH (06:25)
[2017-07-24] MEDS: LORazepam 1 MG (ATIVAN) TAB PO SCH ×2 (07:28→20:15)
[2017-07-24] MEDS: NON-FORMULARY MEDICATION 1 EA EA (Fenofibrate Nanocrystallized (Fenofibrate) 145 MG) PO SCH (07:28)
[2017-07-24] MEDS: PIOGLITAZONE 30MG (ACTOS) TAB PO SCH (07:28)
[2017-07-24] MEDS: RAMIPRIL 5 MG (ALTACE) CAP PO SCH (07:28)
[2017-07-24] MEDS: oxyCODONE ER 20 MG (OxyCONTIN CR) TAB PO SCH ×2 (07:29→20:15)
[2017-07-24] MEDS: BETHANECHOL 25 MG (URECHOLINE) TAB PO SCH ×4 (07:29→20:15)
[2017-07-24] MEDS: PHENYTOIN 100 MG (DILANTIN) CAP PO SCH ×2 (07:29→20:15)
[2017-07-24] MEDS: ISOSORBIDE MONONITRATE 60 MG (IMDUR) TAB PO SCH ×2 (07:29→20:16)
[2017-07-24] MEDS: FLUoxetine HCL 20 MG (PROzac) CAP PO SCH (07:29)
[2017-07-24 08:00] VITALS: BP 127/72
[2017-07-24] MEDS: RT-ALBUTEROL/IPRATROPIUM 3 ML (DUONEB) VIAL INH SCH ×3 (08:05→19:48)
[2017-07-24] MEDS: RT-FLUTICASONE 110 MCG (FLOVENT) PER PUFF INH SCH ×2 (08:05→19:48)
[2017-07-24] MEDS: fentaNYL INJECTION 100 MCG/2 ML AMP IVP PRN ×2 (08:36→22:36)
[2017-07-24] MEDS: TIMOLOL MALEATE 0.5% 5 ML (TIMOPTIC) BTL OU SCH ×2 (08:36→20:15)
[2017-07-24] MEDS: FLUTICASONE NASAL SPRAY (FLONASE) 16 GM BTL NS SCH (08:36)
[2017-07-24] MEDS ORDERED: NON-FORMULARY MEDICATION 1 EA EA (Ramipril 10 MG) PO SCH (09:00)
[2017-07-24] MEDS ORDERED: MULTIVITAMIN PO SCH (09:00)
--- NOTE | 2017-07-24 11:13 | Progress Note-Hospitalist ---
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 He was admitted here in February after falling at home and fracturing his left hip. Following his acute hospital stay he went to the inpatient rehabilitation facility and was sufficiently immobilized. He then was discharged to his home and did reasonably well for a period of time. His family member present in the room states that he then suffered a fall at home and went to a [place] assisted for additional physical therapy. He then returned home on July 07 seemed to be doing satisfactorily and walking with a walker. He suffered another fall on the date of admission and was found to have a nondisplaced fracture in the area of the greater trochanter. He reports that he was able to land his back and straight leg lift but then had to have help 2 drop the leg back to the bed and only with great pain. Physical exam: The patient is comfortable and alert in bed. Lungs are clear to auscultation. CV is regular without murmur. Abdomen is soft to palpation. A Ulloa catheter is in place. Impression: Nondisplaced fracture left hip. 2.previous history fracture right hip. 3.gait disturbance. Plan: Await further assessment from orthopedics. It is not clear whether he will require operative fixation. Labs Laboratory Tests 07/24/17 05:45 ABBE ESPITIA MD Jul 24, 2017 11:13
[2017-07-24] MEDS: NS IV 1000 ML 1,000 ML IV SCH ×2 (11:24→13:06)
[2017-07-24 12:00] VITALS: BP_SYST 123; BP_SYST 129; BP_DIAS 75; BP_DIAS 79
--- NOTE | 2017-07-24 12:45 | Consultation ---
History of Present Illness History of Present Illness Patient Consulted On(heena/time) 07/24/17 12:36 Time Seen by Provider: 12:40 History of Present Illness CC: Right hip fracture HPI: This is a 66 yo pt that was previously hospitalized after left hip fracture ORIF. He fell yesterday morning and began to have right hip pain so brought to [facility] ER and subsequently [facility] [place] with a questionable fracture on CT scan. Pt denies pain unless he is moving. Pt states he has right hip pain with ROM and ambulation. Pt states he was at home when hell fell. Stable on exam. Patient is a current smoker. Pain management discussed. Treatment plan discussed. Allergies and Home Medications Allergies Coded Allergies: Penicillins (Verified Allergy, Unknown, 04/22/17) diazepam (Unverified Allergy, Unknown, 03/07/17) doxycycline (Unverified Allergy, Unknown, RASH, 03/07/17) phenobarbital (Unverified Allergy, Unknown, 03/07/17) RELAXES ME TOO MUCH piperacillin (Unverified Allergy, Unknown, RASH, PT HAS RECEIVED CEFAZOLIN IN THE PAST W/O ISSUE, 03/08/17) sulfamethoxazole (Verified Allergy, Unknown, 04/22/17) terazosin (Unverified Allergy, Unknown, 03/07/17) CHEST PAIN Home Medications Albuterol Sulfate 1 Puff Puff, 2 PUFF INH Q4H PRN for SHORTNESS OF BREATH, ( Reported) Aspirin 81 Mg Tablet.dr, 81 MG PO DAILY, (Reported) Bethanechol Chloride 25 Mg Tablet, 25 MG PO QID, (Reported) Clopidogrel Bisulfate 75 Mg Tablet, 75 MG PO DAILY, (Reported) Ezetimibe 10 Mg Tablet, 10 MG PO HS, (Reported) Fenofibrate Nanocrystallized 145 Mg Tablet, 145 MG PO DAILY, (Reported) Fluoxetine HCl 20 Mg Capsule, 40 MG PO DAILY, (Reported) TAKES 2 (20MG) CAPSULES Fluticasone Propionate 1 Ea Aero, 1 PUFF INH BID, (Reported) Fluticasone Propionate 16 Gm [place].susp, 2 SPRAYS NS DAILY, (Reported) Gabapentin 300 Mg Capsule, 300 MG PO HS, (Reported) Isosorbide Mononitrate 60 Mg Tab, 60 MG PO BID, (Reported) Lorazepam 1 Mg Tablet, 1 MG PO BID, (Reported) Multivitamin 1 Each Capsule, 1 CAP PO DAILY, (Reported) Nitroglycerin 0.4 Mg Tab.subl, 0.4 MG SL UD PRN for CHEST PAIN, (Reported) Olanzapine 2.5 Mg Tablet, 2.5 MG PO HS, (Reported) Oxycodone HCl 20 Mg Tab.er.12h, 20 MG PO BID, (Reported) Oxycodone HCl/Acetaminophen 1 Each Tablet, 1 TAB PO Q4H PRN for BREAKTHROUGH PAIN, (Reported) Phenytoin Sodium Extended 100 Mg Capsule, 200 MG PO BID, (Reported) TAKES 2 (100MG) CAPSULES Pioglitazone HCl 30 Mg Tablet, 30 MG PO DAILY, (Reported) Ramipril 10 Mg Capsule, 10 MG PO DAILY, (Reported) Ranitidine HCl 150 Mg Tablet, 150 MG PO HS, (Reported) Simvastatin 40 Mg Tablet, 40 MG PO 1800, (Reported) Tamsulosin HCl 0.4 Mg Cap, 0.4 MG PO HS, (Reported) Temazepam 7.5 Mg Capsule, 7.5 MG PO HS PRN for INSOMNIA, (Reported) Timolol 5 Ml Drops, 1 DROP OU BID, (Reported) 0.5% Trazodone HCl 50 Mg Tablet, 50 MG PO HS, (Reported) Past Crfmcmy-[id number]-Bvbbzg Hx Patient Social History Alcohol Use: Denies Use Recreational Drug Use: No Smoking Status: Current Everyday Smoker Type Used: Cigarettes 2nd Hand Smoke Exposure: Yes Recent Foreign Travel: No Contact w/Someone Who Travel: No Recent Infectious Disease Expo: No Recent Hopitalizations: Yes Immunizations Up To Date Date of Pneumonia Vaccine: Nov 08, 2016 Date of Influenza Vaccine: Aug 08, 2012 Seasonal Allergies Seasonal Allergies: No Surgeries History of Surgeries: Yes Surgeries: Appendectomy, Gallbladder, Orthopedic, Penile Implant, Renal, Transurethral Resection Respiratory History of Respiratory Disorde: Yes Respiratory Disorders: Asthma, COPD, Emphysema Currently Using CPAP: No Currently Using BIPAP: No Cardiovascular History of Cardiac Disorders: Yes (CABG IN 1999; 16 CARDIAC STENTS) Cardiac Disorders: Coronary Artery Disease, High Cholesterol, Hypertension Neurological History of Neurological Disord: Yes Neurological Disorders: Headaches /Migraines, Seizure Disorder Reproductive System Hx Reproductive Disorders: Yes (ED--PENILE IMPLANT) Sexually Transmitted Disease: No HIV/AIDS: No Genitourinary History of Genitourinary Disor: Yes Genitourinary Disorders: Benign Prostatic Hyperpl, Kidney Stones Gastrointestinal History of Gastrointestinal Di: Yes Gastrointestinal Disorders: Gastroesophageal Reflux, Ulcer Musculoskeletal History of Musculoskeletal Dis: Yes Musculoskeletal Disorders: Arthritis Endocrine History of Endocrine Disorders: Yes Endocrine Disorders: Diabetes, Non-Insulin dep HEENT History of HEENT Disorders: Yes HEENT Disorders: Cataract, Glaucoma Loss of Vision: Denies Hearing Impairment: Hard of Hearing Cancer History of Cancer: No Psychosocial History of Psychiatric Problem: Yes Behavioral Health Disorders: Anxiety, Bipolar, Depression Integumentary History of Skin or Integumenta: No Blood Transfusions History of Blood Disorders: No Adverse Reaction to a Blood Tr: No Family Medical History Family Medial History: Patient reports no known family medical history. Review of Systems-General All Other Systems Reviewed Negative Unless Noted: Yes Physical Exam-General Problems Physical Exam Vital Signs Vital Sign - Last 12Hours 07/23/17 06:20 Temp 97.8 Pulse 100 Resp 18 B/P (MAP) 108/59 Pulse Ox 96 O2 Delivery Room Air Capillary Refill : Less Than 3 Seconds Assessment/Plan Assessment/Plan Admission Diagnosis/Plan Dx: Acute right hip greater trochanter fracture with no displacement through the posterior aspect. Plan: Patient is a poor surgical candidate, but this is a non-surgical fracture. We will treat conservatively. Tx with walker and touchdown weight bearing or wheel chair. Follow in office with repeat x-rays in 2 weeks. Clinical Quality Measures DVT/VTE Risk/Contraindication: Risk Factor Score Per Nursin RFS Level Per Nursing on Admit: 4+=Very High DONNA FOOTE APRN Jul 24, 2017 12:45
[2017-07-24] MEDS: oxyCODONE/APAP 10/325MG (PERCOCET 10) TABLET PO PRN ×2 (13:09→16:49)
[2017-07-24 16:13] VITALS: BP 120/72
--- NOTE | 2017-07-24 16:26 | Progress Note-Cardiology ---
Cardiology SOAP Progress Note Subjective: No cp or palp or syncope or shortness of breath Objective: I&O/Vital Signs Vital Sign - Last 12Hours 07/24/17 07/24/17 07/24/17 07/24/17 08:00 08:05 08:39 12:00 Temp 98.2 98.4 Pulse 92 87 Resp 24 24 B/P (MAP) 127/72 129/75 Pulse Ox 97 97 96 98 O2 Delivery Room Air Room Air Room Air Room Air O2 Flow Rate 07/24/17 14:58 Pulse Ox 96 O2 Delivery Room Air Intake and Output 07/25/17 00:00 Intake Total 1820 ml Output Total 500 ml Balance 1320 ml Weight (Pounds): 157 Weight (Ounces): 15.4 Weight (Calculated Kilograms): 71.995732 Constitutional: AAO x 3, well-developed, well-nourished Respiratory: No accessory muscle use, other (good bilat air entry) Cardiovascular: regular rate-rhythm, S1 and S2, systolic murmur (faint STEVE at cardiac base) Gastrointestional: No tender, soft, No guarding, No rebound, audible bowel sounds Extremities: No clubbing, No cyanosis, No significant edema Neurologic/Psychiatric: grossly intact (power appears symmetric on both sides. We did not attempt any motion at the hip joints) Skin: No rash on exposed areas, No ulcerations on exposed areas Results/Procedures: Labs Laboratory Tests 07/24/17 05:45: White Blood Count 7.5, Red Blood Count 3.00L, Hemoglobin 7.4L, Hematocrit 24L, Mean Corpuscular Volume 80, Mean Corpuscular Hemoglobin 25, Mean Corpuscular Hemoglobin Concent 31L, Red Cell Distribution Width 16.3H, Platelet Count 630H, Mean Platelet Volume 7.5, Neutrophils (%) (Auto) 68, Lymphocytes (%) (Auto) 22, Monocytes (%) (Auto) 9, Eosinophils (%) (Auto) 1, Basophils (%) (Auto) 0, Neutrophils # (Auto) 5.1, Lymphocytes # (Auto) 1.6, Monocytes # (Auto) 0.7, Eosinophils # (Auto) 0.0, Basophils # (Auto) 0.0, Sodium Level 136, Potassium Level 3.9, Chloride Level 104, Carbon Dioxide Level 24, Anion Gap 8, Blood Urea Nitrogen 10, Creatinine 0.64, Estimat Glomerular Filtration Rate > 60, BUN/ Creatinine Ratio 16, Glucose Level 169H, Calcium Level 8.6, Total Bilirubin 0.2 , Aspartate Amino Transf (AST/SGOT) 33, Alanine Aminotransferase (ALT/SGPT) 24, Alkaline Phosphatase 249H, Total Protein 5.9L, Albumin 2.8L Laboratory Tests 07/24/17 05:45 A/P: Assessment: CAD: H/o CABG in 2004 at [facility] with several stents post CABG most recently in 2011 per pt report (he reports 17 st[address]) 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
[2017-07-24] MEDS ORDERED: ASPIRIN 81 MG CHEW (CHILDREN'S ASA) PO NR (16:42)
[2017-07-24] MEDS: SIMvastatin 40 MG (ZOCOR) TAB PO SCH (16:48)
[2017-07-24] MEDS: ALFUZOSIN HCL 10 MG TAB (UROXATRAL) PO SCH (16:49)
[2017-07-24 19:25] VITALS: BP 104/64
[2017-07-24] MEDS: FAMOTIDINE 20 MG (PEPCID) TABLET PO SCH (20:15)
[2017-07-24] MEDS: GABAPENTIN 300 MG (NEURONTIN) CAP PO SCH (20:15)
[2017-07-24] MEDS: OLANZapine 2.5 MG (ZyPREXA) TAB PO SCH (20:15)
[2017-07-24] MEDS: eZETimibe 10 MG (ZETIA) TABLET PO SCH (20:15)
[2017-07-24] MEDS: traZODone 50 MG (DESYREL) TAB PO SCH (20:15)
[2017-07-25] VITALS: BP 135/68
[2017-07-25] MEDS: NS IV 1000 ML 1,000 ML IV SCH ×2 (03:55→18:10)
[2017-07-25 04:00] VITALS: BP 135/68
[2017-07-25] MEDS: MULTIVIT W/MINERALS TAB (THERAGRAN M) PO SCH (06:20)
[2017-07-25] MEDS: fentaNYL INJECTION 100 MCG/2 ML AMP IVP PRN ×4 (06:20→22:19)
[2017-07-25] MEDS: RT-ALBUTEROL/IPRATROPIUM 3 ML (DUONEB) VIAL INH SCH ×3 (07:38→19:58)
[2017-07-25] MEDS: RT-FLUTICASONE 110 MCG (FLOVENT) PER PUFF INH SCH ×2 (07:42→19:58)
[2017-07-25] MEDS: PIOGLITAZONE 30MG (ACTOS) TAB PO SCH (07:48)
[2017-07-25] MEDS: RAMIPRIL 5 MG (ALTACE) CAP PO SCH (07:48)
[2017-07-25] MEDS: PHENYTOIN 100 MG (DILANTIN) CAP PO SCH ×2 (07:49→22:14)
[2017-07-25] MEDS: LORazepam 1 MG (ATIVAN) TAB PO SCH ×2 (07:49→22:14)
[2017-07-25] MEDS: oxyCODONE/APAP 10/325MG (PERCOCET 10) TABLET PO PRN ×3 (07:49→17:25)
[2017-07-25] MEDS: oxyCODONE ER 20 MG (OxyCONTIN CR) TAB PO SCH ×2 (07:49→22:14)
[2017-07-25] MEDS: ISOSORBIDE MONONITRATE 60 MG (IMDUR) TAB PO SCH ×2 (07:49→22:14)
[2017-07-25] MEDS: BETHANECHOL 25 MG (URECHOLINE) TAB PO SCH ×4 (07:49→22:13)
[2017-07-25] MEDS: ASPIRIN 81 MG CHEW (CHILDREN'S ASA) PO SCH (07:49)
[2017-07-25] MEDS: FLUTICASONE NASAL SPRAY (FLONASE) 16 GM BTL NS SCH (07:50)
[2017-07-25] MEDS: NON-FORMULARY MEDICATION 1 EA EA (Fenofibrate Nanocrystallized (Fenofibrate) 145 MG) PO SCH (07:50)
[2017-07-25] MEDS: FLUoxetine HCL 20 MG (PROzac) CAP PO SCH (07:50)
[2017-07-25] MEDS: TIMOLOL MALEATE 0.5% 5 ML (TIMOPTIC) BTL OU SCH ×2 (07:50→22:13)
[2017-07-25 08:00] VITALS: BP 88/48
--- NOTE | 2017-07-25 13:32 | Progress Note-Hospitalist ---
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 He believes he was told that there was no fracture and no need for surgery. The ortho consult details fracture at the greater trochanter but no surgical repair required. Future plans are detailed in the consult. The patient reports that he has considerable pain still. Physical exam: Lungs are clear to auscultation. CV is regular without murmur. Extremities show no external rotation or deformity. Impression: Nondisplaced fracture right greater trochanter. 2.fracture left hip earlier this year requiring operative repair. 3.gait instability. Plan: Social service consult for placement in a.m. Labs Laboratory Tests 07/24/17 05:45 ABBE ESPITIA MD Jul 25, 2017 13:32
[2017-07-25 16:00] VITALS: BP 126/67
--- NOTE | 2017-07-25 16:14 | Progress Note-Cardiology ---
Cardiology SOAP Progress Note Subjective: No new symptoms. Resting comfortably Objective: I&O/Vital Signs Vital Sign - Last 12Hours 07/25/17 07/25/17 07/25/17 07/25/17 07:38 08:00 08:12 15:02 Temp 99.1 Pulse 91 Resp 20 B/P (MAP) 88/48 Pulse Ox 92 95 92 O2 Delivery Room Air Room Air Room Air Room Air Intake and Output 07/26/17 00:00 Intake Total 760 ml Output Total 550 ml Balance 210 ml Weight (Pounds): 157 Weight (Ounces): 15.4 Weight (Calculated Kilograms): 71.156261 Constitutional: AAO x 3, well-developed, well-nourished Respiratory: No accessory muscle use, other (good bilat air entry) Cardiovascular: regular rate-rhythm, S1 and S2, systolic murmur (faint STEVE at cardiac base) Gastrointestional: No tender, soft, No guarding, No rebound, audible bowel sounds Extremities: No clubbing, No cyanosis, No significant edema Neurologic/Psychiatric: grossly intact (power appears symmetric on both sides. 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
[2017-07-25] MEDS: SIMvastatin 40 MG (ZOCOR) TAB PO SCH (17:25)
[2017-07-25] MEDS: ALFUZOSIN HCL 10 MG TAB (UROXATRAL) PO SCH (17:25)
[2017-07-25] MEDS: GABAPENTIN 300 MG (NEURONTIN) CAP PO SCH (22:13)
[2017-07-25] MEDS: FAMOTIDINE 20 MG (PEPCID) TABLET PO SCH (22:13)
[2017-07-25] MEDS: traZODone 50 MG (DESYREL) TAB PO SCH (22:13)
[2017-07-25] MEDS: eZETimibe 10 MG (ZETIA) TABLET PO SCH (22:14)
[2017-07-25] MEDS: OLANZapine 2.5 MG (ZyPREXA) TAB PO SCH (22:14)
[2017-07-26 00:53] VITALS: BP 117/66
[2017-07-26] MEDS: MULTIVIT W/MINERALS TAB (THERAGRAN M) PO SCH (06:35)
[2017-07-26] MEDS: RT-ALBUTEROL/IPRATROPIUM 3 ML (DUONEB) VIAL INH SCH (07:30)
[2017-07-26] MEDS: RT-FLUTICASONE 110 MCG (FLOVENT) PER PUFF INH SCH (07:32)
[2017-07-26] MEDS: NS IV 1000 ML 1,000 ML IV SCH (07:45)
[2017-07-26] MEDS: ASPIRIN 81 MG CHEW (CHILDREN'S ASA) PO SCH (07:46)
[2017-07-26] MEDS: PIOGLITAZONE 30MG (ACTOS) TAB PO SCH (07:46)
[2017-07-26] MEDS: oxyCODONE/APAP 10/325MG (PERCOCET 10) TABLET PO PRN ×2 (07:46→14:00)
[2017-07-26] MEDS: FLUoxetine HCL 20 MG (PROzac) CAP PO SCH (07:46)
[2017-07-26] MEDS: LORazepam 1 MG (ATIVAN) TAB PO SCH (07:46)
[2017-07-26] MEDS: RAMIPRIL 5 MG (ALTACE) CAP PO SCH (07:46)
[2017-07-26] MEDS: ISOSORBIDE MONONITRATE 60 MG (IMDUR) TAB PO SCH (07:47)
[2017-07-26] MEDS: oxyCODONE ER 20 MG (OxyCONTIN CR) TAB PO SCH (07:47)
[2017-07-26] MEDS: PHENYTOIN 100 MG (DILANTIN) CAP PO SCH (07:47)
[2017-07-26] MEDS: FLUTICASONE NASAL SPRAY (FLONASE) 16 GM BTL NS SCH (07:48)
[2017-07-26] MEDS: TIMOLOL MALEATE 0.5% 5 ML (TIMOPTIC) BTL OU SCH (07:48)
[2017-07-26] MEDS: BETHANECHOL 25 MG (URECHOLINE) TAB PO SCH ×2 (07:48→14:00)
[2017-07-26 07:59] VITALS: BP 134/76
[2017-07-26] MEDS: fentaNYL INJECTION 100 MCG/2 ML AMP IVP PRN (08:16)
[2017-07-26] MEDS ORDERED: fentaNYL INJECTION 100 MCG/2 ML AMP IVP PRN (09:00)
[2017-07-26] MEDS ORDERED: fentaNYL PATCH 50 MCG (DURAGESIC) TD SCH (09:00)
[2017-07-26] MEDS ORDERED: IRON SUCROSE INJECTION 200 MG in NS (IVPB) 100 ML IV SCH (09:00)
--- NOTE | 2017-07-26 09:12 | Cardiology Progress Note ---
Subjective Date Seen by Provider: Jul 26, 2017 Time Seen by Provider: 09:06 Subjective/Events-last exam patient is laying down in bed, lethargic, still having pain in his leg, received pain medicine and feeling drowsy. Denied any chest pain or shortness of breath. Review of Systems General: No Chills, No Night Sweats, Fatigue, Malaise, No Appetite, No Other HEENT: No Head Aches, No Visual Changes, No Eye Pain, No Ear Pain, No Dysphasia , No Sinus Congestion, No Post Nasal Drip, No Sore Throat, No Other Pulmonary: No Dyspnea, No Cough, No Pleuritic Chest Pain, No Other Cardiovascular: No: Chest Pain, Palpitations, Orthopnea, Paroxysmal Noc. Dyspnea, Edema, Lt Headedness, Other Objective-Cardiology Exam Last Set of Vital Signs Vital Signs 07/26/17 07:59 Temp 97.8 Pulse 99 Resp 24 B/P (MAP) 134/76 Pulse Ox 96 O2 Delivery Room Air Capillary Refill : Less Than 3 Seconds General: Alert, Oriented X3, Cooperative, Moderate Distress HEENT: Atraumatic, PERRLA Neck: Supple, No JVD, No Thyromegaly Lungs: Clear to Auscultation, Normal Air Movement Heart: Regular Rate, Normal S1, Normal S2, No Murmurs Abdomen: Normal Bowel Sounds, Soft, No Tenderness, No Hepatosplenomegaly, No Masses Extremities: No Clubbing, No Cyanosis, No Edema, Normal Pulses, No Tenderness/ Swelling Skin: No Rashes, No Breakdown, No Significant Lesion Neuro: Normal Speech, Sensation Intact Psych/Mental Status: Mental Status NL, Mood NL A/P-Cardiology Admission Diagnosis Femur fracture Coronary artery disease Hypertension Hyperlipidemia Assessment/Plan Femur fracture, fracture line of the posterior aspect of the greater trochanter , orthopnea consult with, managed by primary care physician Anemia, significant drop in H&H. Followed and managed by primary care physician , repeat CBC today. 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 LVEF 55-60% and mild MR on echo of 07/23/17, continue to monitor. Hyperlipidemia, maintained on statin. Continue to monitor lipids Hypertension, continue on current medication monitor blood pressure Tobaccoism, educated on smoking cessation. COPD, managed by primary care physician Diabetes mellitus, followed and managed by primary care physician Clinical Quality Measures DVT/VTE Risk/Contraindication: Risk Factor Score Per Nursin RFS Level Per Nursing on Admit: 4+=Very High MANE VARGAS MD Jul 26, 2017 09:12
--- NOTE | 2017-07-26 09:19 | Progress Note-Hospitalist ---
Progress Note HPI/CC on Admission CC: Right hip fracture HPI: This is a 66 yoWM pt known to me from previous hospitalization after left hip fracture repair. He fell this morning and began to have right hip pain so brought to [facility] ER and questionable fracture on CT scan. 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 Pt states he has right hip pain Pt states he was not at a nursing facility, he was at home Physical exam stable Pt denies having O2 at home. Pt states that he is still smoking and he states that he has tried to quit with no avail Pain meds discussed Plan: Palliative care consult? Scribed by Sarah Montana under the direct supervision of Dr. Escoto. 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 Peña Reconcile all home meds Pain control Very poor prognosis Palliative care consult CARLOS ESCOTO DO Jul 26, 2017 09:19
[2017-07-26 09:28] LABS: MEAN PLATELET VOLUME 7.6 FL (7.4-10.4); RED BLOOD COUNT 3.16 10^6/uL (4.35-5.85); RED CELL DISTRIBUTION WIDTH 15.9 % (10.0-14.5)
[2017-07-26] MEDS ORDERED: LACTULOSE SYRUP 10GM/15ML (ENULOSE) 30ML UDC PO SCH (09:30)
[2017-07-26] MEDS ORDERED: SENNA W/DOCUSATE (SENOKOT S) TABLET PO SCH (09:30)
[2017-07-26] MEDS ORDERED: OXYC-465 PO (09:46)
[2017-07-26] MEDS ORDERED: FERR-74 PO (09:46)
[2017-07-26] MEDS ORDERED: OXYC20TA54 PO (09:46)
[2017-07-26] MEDS ORDERED: FENT1PAT9 TD (09:46)
[2017-07-26] MEDS ORDERED: SENN-20 PO (09:47)
[2017-07-26] MEDS ORDERED: LACT20SO2 PO (09:47)
[2017-07-26 09:49] LABS: ALANINE AMINOTRANSFERASE 33 U/L (0-55); ALBUMIN 2.9 GM/DL (3.2-4.5); ANION GAP 8 MMOL/L (5-14); ASPARTATE AMINO TRANSFERASE 56 U/L (5-34); BILIRUBIN,TOTAL 0.3 MG/DL (0.1-1.0); BLOOD UREA NITROGEN 7 MG/DL (7-18); BUN/CREATININE RATIO 11; CALCIUM 8.6 MG/DL (8.5-10.1); CARBON DIOXIDE 24 MMOL/L (21-32); CHLORIDE 103 MMOL/L (98-107); CREATININE SERUM 0.61 MG/DL (0.60-1.30); GFR ESTIMATED > 60; GLUCOSE 182 MG/DL (70-105); SODIUM 135 MMOL/L (135-145); TOTAL PROTEIN 5.9 GM/DL (6.4-8.2)
--- NOTE | 2017-07-26 09:50 | Discharge Summary-Hospitalist ---
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 Severe CAD 26 prior stents Cardiology consulted COPD with continued smoking Chronic pain on chronic narcotics Acute on chronic constipation Hyperlipidemia Seizure disorder Hip fracture left 03/24 Severe debility required senior living placement and overall decline noted and likely will be a Hospice candidate Polyarthralgia Falls Thrombocytosis c/w multiple med issues and chronic inflammation Discharge Diagnosis Assessment: Right hip pain without fracture on CT scan managed conservatively by Dr Peña h/o resistant UTI with severe urinary retention requiring Ulloa catheter indwelling placement in the past Chronic anemia usual 8.5 hgb DC with 7.7 placed on iron supp along with 1 Venofer infusion 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 Severe CAD 26 prior stents Cardiology consulted COPD with continued smoking Chronic pain on chronic narcotics Acute on chronic constipation Hyperlipidemia Seizure disorder Hip fracture left 03/24 Severe debility required senior living placement and overall decline noted and likely will be a Hospice candidate Polyarthralgia Falls Thrombocytosis c/w multiple med issues and chronic inflammation Discharge Summary Discharge Physical Examination Allergies: Coded Allergies: Penicillins (Verified Allergy, Unknown, 04/22/17) diazepam (Unverified Allergy, Unknown, 03/07/17) doxycycline (Unverified Allergy, Unknown, RASH, 03/07/17) phenobarbital (Unverified Allergy, Unknown, 03/07/17) RELAXES ME TOO MUCH piperacillin (Unverified Allergy, Unknown, RASH, PT HAS RECEIVED CEFAZOLIN IN THE PAST W/O ISSUE, 03/08/17) sulfamethoxazole (Verified Allergy, Unknown, 04/22/17) terazosin (Unverified Allergy, Unknown, 03/07/17) CHEST PAIN Vitals & I&Os Vital Signs Date Time Temp Pulse Resp B/P (MAP) Pulse Ox O2 Delivery O2 Flow Rate FiO2 07/26/17 14:15 88 22 128/88 96 Room Air 07/26/17 07:59 97.8 07/24/17 12:00 Hospital Course Hospital course: Patient had an uneventful hospital course he was admitted for presumed right hip fracture after a fall at home after he was discharged from the nursing facility. CT scan was unreliable there was obtained sore repeat one was obtained by Dr. Peña which resulted in no evidence of a hip fracture that resulted in a surgical plan. Overall his prognosis was is so extremely poor he was deemed a hospice candidate 2 admissions ago and he was managed on IV pain medications switched to fentanyl patch along with oxycodone because of chronic narcotic dependency. Smoking cessation was counseled and he refused to go back to a nursing facility he had 24 7 nursing care at home along with his and he was deemed stable for discharge after iron infusion and oral supplement of iron was given due to hemoglobin is 7.7 with his usual hemoglobin of 8.5. Overall his prognosis was extremely poor but unable to modify any factors to improve that and he was discharged to home at his request. Labs (last 24 hrs) Pending Labs Discharge Home Medications: Active Scripts Active Senna-Time S Tablet (Sennosides/Docusate Sodium) 1 Each Tablet 1 Ea PO BID Lactulose 20 Gm/30 Ml Solution 10 Gm PO BID Ferrous Sulfate 325 Mg Tablet 325 Mg PO DAILY Fentanyl Patch 50 MCG (Fentanyl) 1 Each Patch.td72 50 Mcg TD Q72H Oxycontin (Oxycodone HCl) 20 Mg Tab.er.12h 20 Mg PO BID Oxycodone-Acetaminophen 10-325 (Oxycodone HCl/Acetaminophen) 1 Each Tablet 1 Tab PO Q4H PRN Reported Proair Hfa (Albuterol Sulfate) 1 Puff Puff 2 Puff INH Q4H PRN Fenofibrate (Fenofibrate Nanocrystallized) 145 Mg Tablet 145 Mg PO DAILY Ranitidine HCl 150 Mg Tablet 150 Mg PO HS Pioglitazone HCl 30 Mg Tablet 30 Mg PO DAILY Ramipril 10 Mg Capsule 10 Mg PO DAILY Nitroglycerin 0.4 Mg Tab.subl 0.4 Mg SL UD PRN Ezetimibe 10 Mg Tablet 10 Mg PO HS Clopidogrel (Clopidogrel Bisulfate) 75 Mg Tablet 75 Mg PO DAILY Phenytoin Sodium Extended 100 Mg Capsule 200 Mg PO BID TAKES 2 (100MG) CAPSULES Fluoxetine HCl 20 Mg Capsule 40 Mg PO DAILY TAKES 2 (20MG) CAPSULES Gabapentin 300 Mg Capsule 300 Mg PO HS Temazepam 7.5 Mg Capsule 7.5 Mg PO HS PRN Aspirin EC (Aspirin) 81 Mg Tablet.dr 81 Mg PO DAILY Trazodone HCl 50 Mg Tablet 50 Mg PO HS Lorazepam 1 Mg Tablet 1 Mg PO BID Fluticasone Propionate 16 Gm [place].susp 2 Sprays NS DAILY Betimol (Timolol) 5 Ml Drops 1 Drop OU BID 0.5% Multivitamins (Multivitamin) 1 Each Capsule 1 Cap PO DAILY Bethanechol Chloride 25 Mg Tablet 25 Mg PO QID Flomax (Tamsulosin HCl) 0.4 Mg Cap 0.4 Mg PO HS Simvastatin 40 Mg Tablet 40 Mg PO 1800 Flovent Hfa 110 mcg (Fluticasone Propionate) 1 Ea Aero 1 Puff INH BID Isosorbide Mononitrate ER (Isosorbide Mononitrate) 60 Mg Tab 60 Mg PO BID Olanzapine 2.5 Mg Tablet 2.5 Mg PO HS Instructions to patient/family Please see electronic discharge instructions given to patient. Clinical Quality Measures DVT/VTE Risk/Contraindication: Risk Factor Score Per Nursin RFS Level Per Nursing on Admit: 4+=Very High CARLOS ESCOTO DO Jul 26, 2017 09:50
--- NOTE | 2017-07-26 09:52 | D/C HH Face to Face Order ---
D/C Face to Face Orders Instructions for Patient Patient Instructions/FollowUp: Maintain plan for f/u with Dr Couch Physician to follow Patient: Dr Couch Discharge Diet for Home: ADA Diet, Cardiac Diet Patient Problems: Right hip pain from fall but no fracture that required surgery COPD Smoker End stage CAD Patient Data-Allergies,Ht & Wt Patient Allergies: Coded Allergies: Penicillins (Verified Allergy, Unknown, 04/22/17) diazepam (Unverified Allergy, Unknown, 03/07/17) doxycycline (Unverified Allergy, Unknown, RASH, 03/07/17) phenobarbital (Unverified Allergy, Unknown, 03/07/17) RELAXES ME TOO MUCH piperacillin (Unverified Allergy, Unknown, RASH, PT HAS RECEIVED CEFAZOLIN IN THE PAST W/O ISSUE, 03/08/17) sulfamethoxazole (Verified Allergy, Unknown, 04/22/17) terazosin (Unverified Allergy, Unknown, 03/07/17) CHEST PAIN Height (Feet): 5 Height (Inches): 6.00 Weight (Pounds): 157 Weight (Ounces): 15.4 Home Health Need/Face to Face Date of Face to Face: Jul 26, 2017 Clinical Findings: Generalized weakness and fatigue, Muscle weakness, Non or partial weight bearing, Pain with ambulation, Unsteady gait I have seen Pt [id number]: Yes Discharged To: Home Diagnosis/Conditions: Right hip pain Severe debility chronic anemia usual hgb 8.0 Problems/Diagnosis/Condition: Patient is Homebound due to: Stella fall risk due to instabilty, Pain w/ ambulation, Shortness of breath/distress Homebound Status Due to the above stated illness, injury or surgical procedure (medical condition or diagnosis) and associated clinical findings, the patient is homebound because of his/her inability to leave home except with aid of a supportive device and/or person AND leaving the home requires a considerable and taxing effort or is medically contraindicated. Pt req the following assistanc: Walker Home Health Infusion Therapy Line Type: Peripheral IV Site Location: Hand Certify Stmt I certify that this patient is under my care and that I, a nurse practitioner or a physician; a golf player assistant working with me, had a face to face encounter that - meets the physician face to face encounter requirements with this patient as dated. CARLOS ESCOTO DO Jul 26, 2017 09:52
--- NOTE | 2017-07-26 10:02 | Physical Therapy Evaluation ---
PT Evaluation-General Medical Diagnosis Admission Date Jul 23, 2017 at 06:25 Medical Diagnosis: possible right hip fracture Onset Date: Jul 23, 2017 Therapy Diagnosis Therapy Diagnosis: weakness/debility Height/Weight Height (Feet): 5 Height (Inches): 6.00 Weight (Pounds): 157 Weight (Ounces): 15.4 Precautions Precautions/Isolations: Seizure, Fall Prevention, Standard Precautions Weight Bear Status Weight Bearing Restriction: Weight Bearing/Tolerated Location Restriction: R LE TTWB Referral Physician: Ruben Reason for Referral: Evaluation/Treatment Medical History Pertinent Medical History: Arthritis, CABG, CAD, DM, GERD, HTN, Smoking Additional Medical History multiple hospital admits Current History s/p fall at home with caregivers patient is w/c with minimal ambulation PLOF Reviewed History: Yes Social History Home: Single Level Current Living Status: Other Family Entry Into Home: Ramp Prior/Core FIM Prior Level of Function Functional [place] Measure 0=Not Assessed/NA 4=Minimal Assistance 1=Total Assistance 5=Supervision or Setup 2=Maximal Assistance 6=Modified [place] 3=Moderate Assistance 7=Complete [place] Bed Mobility: 3 Transfers (B,C,W/C) (FIM): 3 Gait: 1 Locomotion: 1 Wheelchair Mobility: 1 per family, patient able to take 2-3 steps PT Evaluation-Current Subjective Patient initially declined PT, however, after much encouragement, patient agrees. Family present. Dr. Hartman in to assess patient and states his right hip is not fractured, only bruised. Pain Numeric Pain Scale: 10-Worst Possible Pain Location: Right Location Body Site: Hip Pain Description: Ache, Acute Objective Patient Orientation: Person, Time, Situation Problem Solving: Fair Attachments: [place] Catheter, IV ROM/Strength ROM Lower Extremities bilateral LE WNL; increase c/o pain with right hip ROM Strenght Lower Extremities left knee flexion/extension 3-/5; hip flexion NT; ankle dorsi/plantarflexion 3-/ 5 right LE (patient would not allow to test.) Integumentary/Posture Integumentary refer to nursing notes Bowel Incontinence: Yes Bladder Incontinence: [place] Cath Posture limited with erect posture in sit and stand Neuromuscular (Tone, Coordination, Reflexes) severely diminished coordination due to inactivity PLOF Sensory Vision: Functional Hearing: Impaired Sensation Right Lower Extremit: Intact Sensation Left Lower Extremity: Intact Transfers Functional [place] Measure 0=Not Assessed/NA 4=Minimal Assistance 1=Total Assistance 5=Supervision or Setup 2=Maximal Assistance 6=Modified [place] 3=Moderate Assistance 7=Complete [place] Transfers (B, C, W/C) (FIM): 1 Scootin Rollin Supine to/from Sit: 1 Sit to/from Stand: 1 Patient unable to assist with sit to stand due to weakness and debility PLOF Gait Mode of Locomotion: Wheelchair Anticipated Mode of Locomotion: Wheelchair Balance Sitting Static: Fair Sitting Dynamic: Fair Standing Static: Poor Standing Dynamic: Poor Assessment/Needs 66 y.o. male, will benefit from skilled PT to address functional strength and mobility to improve current LOF and to safely return to home at maximum LOF with caregivers 31/05. Rehab Potential: Poor PT Short Term Goals Short Term Goals Time Frame: Jul 30, 2017 Transfers (B,C,W/C) (FIM): 2 Gait (FIM): 1 Distance (FIM): 1=up to 49 ft Gait Distance Comment: 5' Gait Level of Assist: 2 Gait Assistive Device: FWW PT Plan Problem List Problem List: Activity Tolerance, Functional Strength, Safety, Balance, Gait, Transfer, Bed Mobility, ROM Treatment/Plan Treatment Plan: Continue Plan of Care Treatment Plan: Bed Mobility, Education, Functional Activity Daniel, Functional Strength, Gait, Safety, Therapeutic Exercise, Transfers Treatment Duration: Jul 30, 2017 Frequency: 5 times per week Estimated Hrs Per Day: .25 hour per day Patient and/or Family Agrees t: Yes Safety Risks/Education Patient Education: Safety Issues Time/GCodes Time In: 855 Time Out: 915 Total Billed Treatment Time: 20 [facility] Codes Necessary: MINERVA Ashley PT Jul 26, 2017 10:02
[2017-07-26 14:15] VITALS: BP 128/88
[2017-07-26] MEDS ORDERED: POLYETHYLENE GLYCOL 17 GM (MIRALAX) PACK PO SCH (21:00)
[2017-07-26] MEDS ORDERED: FENOFIBRATE 134 MG (LOFIBRA) CAPSULE PO SCH (21:00)
[2017-07-29] MEDS ORDERED: FENTANYL PATCH REMOVAL TP SCH (08:59)
== END 2017-07-26 14:15 | disposition home health service (06) | DRG 556 ==
LOC: 4TH 06:25
PROVIDERS: ADMIT Internal Medicine; ATTEND Internal Medicine
DX: M25.551 Pain in right hip (principal); D64.9 Anemia, unspecified; J44.9 Chronic obstructive pulmonary disease, unspecified; I25.10 Atherosclerotic heart disease of native coronary artery without angina pectoris; E11.9 Type 2 diabetes mellitus without complications; E78.5 Hyperlipidemia, unspecified; I10 Essential (primary) hypertension; G40.909 Epilepsy, unspecified, not intractable, without status epilepticus; Z66 Do not resuscitate; K59.00 Constipation, unspecified; M25.50 Pain in unspecified joint; D47.3 Essential (hemorrhagic) thrombocythemia; K21.9 Gastro-esophageal reflux disease without esophagitis; I34.0 Nonrheumatic mitral (valve) insufficiency; N40.0 Benign prostatic hyperplasia without lower urinary tract symptoms; F17.210 Nicotine dependence, cigarettes, uncomplicated; Z95.1 Presence of aortocoronary bypass graft; Z95.5 Presence of coronary angioplasty implant and graft; W19.XXXA Unspecified fall, initial encounter; Y92.009 Unspecified place in unspecified non-institutional (private) residence as the place of occurrence of the external cause
CPT/HCPCS: 36415; 73700; 80053; 83540; 85025; 85027; 93005; 93306; 94640; 94760

== ENCOUNTER 2019-01-29 12:41 | Emergency (ER) | payer MEDICARE, MEDICAID ==
[~2019-01-29] VITALS: Ht 165.1 cm; Wt 72.6 kg
[~2019-01-29 12:41] MED LIST changes: +ASPI-983 PO; +CLOP75TA28 PO; +EZET10TA27 PO; +FENO145T37 PO; +FENT1PAT9 TD; +FERR325T18 PO; +GABA-488 PO; -IPRA3AMP INH; +IPRA3AMP31 INH; +NITR0.4T39 SL; +OXYC20TA54 PO; +PHEN100C11 PO; +PIOG30TA71 PO; +RAMI10CA69 PO; +RANI150T11 PO; +RT-ALBUINH INH; +TEMA7.5C PO; +TRAZ-189 PO; -TRAZ-28 PO
[2019-01-29] MEDS ORDERED: KETOROLAC 30 MG/ML VIAL IVP STA (12:54)
--- NOTE | 2019-01-29 12:54 | ED Chest Pain ---
General Stated Complaint: CHEST PAIN History of Present Illness Date Seen by Provider: Jan 29, 2019 Time Seen by Provider: 12:45 Initial Comments 68-year-old male presents of left lateral chest wall pain. Pain started prior to arrival. Started when he was pushing his easy chair. Pain is worse with movement. Does not have any nausea, vomiting, shortness of breath. Patient tried 3 nitroglycerin with no relief. He was given 100 of fentanyl by EMS in route. Allergies and Home Medications Allergies Coded Allergies: Penicillins (Verified Allergy, Unknown, 04/22/17) diazepam (Unverified Allergy, Unknown, 03/07/17) doxycycline (Unverified Allergy, Unknown, RASH, 03/07/17) phenobarbital (Unverified Allergy, Unknown, 03/07/17) RELAXES ME TOO MUCH piperacillin (Unverified Allergy, Unknown, RASH, PT HAS RECEIVED CEFAZOLIN IN THE PAST W/O ISSUE, 03/08/17) sulfamethoxazole (Verified Allergy, Unknown, 04/22/17) terazosin (Unverified Allergy, Unknown, 03/07/17) CHEST PAIN Home Medications Albuterol Sulfate 1 Puff Puff, 2 PUFF INH Q4H PRN for SHORTNESS OF BREATH, ( Reported) Aspirin 81 Mg Tablet.dr, 81 MG PO DAILY, (Reported) Bethanechol Chloride 25 Mg Tablet, 25 MG PO QID, (Reported) Clopidogrel Bisulfate 75 Mg Tablet, 75 MG PO DAILY, (Reported) Ezetimibe 10 Mg Tablet, 10 MG PO HS, (Reported) Fenofibrate Nanocrystallized 145 Mg Tablet, 145 MG PO DAILY, (Reported) Fentanyl 1 Each Patch.td72, 50 MCG TD Q72H Prescribed by: CARLOS ESCOTO on 07/26/17945 Ferrous Sulfate 325 Mg Tablet, 325 MG PO DAILY Prescribed by: CARLOS ESCOTO on 07/26/17 09 Fluoxetine HCl 20 Mg Capsule, 40 MG PO DAILY, (Reported) TAKES 2 (20MG) CAPSULES Fluticasone Propionate 1 Ea Aero, 1 PUFF INH BID, (Reported) Fluticasone Propionate 16 Gm [place].susp, 2 SPRAYS NS DAILY, (Reported) Gabapentin 300 Mg Capsule, 300 MG PO HS, (Reported) Isosorbide Mononitrate 60 Mg Tab, 60 MG PO BID, (Reported) Lactulose 20 Gm/30 Ml Solution, 10 GM PO BID Prescribed by: CARLOS ESCOTO on 07/26/17 0947 Lorazepam 1 Mg Tablet, 1 MG PO BID, (Reported) Multivitamin 1 Each Capsule, 1 CAP PO DAILY, (Reported) Nitroglycerin 0.4 Mg Tab.subl, 0.4 MG SL UD PRN for CHEST PAIN, (Reported) Olanzapine 2.5 Mg Tablet, 2.5 MG PO HS, (Reported) Oxycodone HCl 20 Mg Tab.er.12h, 20 MG PO BID Prescribed by: CARLOS ESCOTO on 07/26/17 0946 Oxycodone HCl/Acetaminophen 1 Each Tablet, 1 TAB PO Q4H PRN for BREAKTHROUGH PAIN Prescribed by: CARLOS ESCOTO on 07/26/17 0946 Phenytoin Sodium Extended 100 Mg Capsule, 200 MG PO BID, (Reported) TAKES 2 (100MG) CAPSULES Pioglitazone HCl 30 Mg Tablet, 30 MG PO DAILY, (Reported) Ramipril 10 Mg Capsule, 10 MG PO DAILY, (Reported) Ranitidine HCl 150 Mg Tablet, 150 MG PO HS, (Reported) Sennosides/Docusate Sodium 1 Each Tablet, 1 EA PO BID Prescribed by: CARLOS ESCOTO on 07/26/17 0947 Simvastatin 40 Mg Tablet, 40 MG PO 1800, (Reported) Tamsulosin HCl 0.4 Mg Cap, 0.4 MG PO HS, (Reported) Temazepam 7.5 Mg Capsule, 7.5 MG PO HS PRN for INSOMNIA, (Reported) Timolol 5 Ml Drops, 1 DROP OU BID, (Reported) 0.5% Trazodone HCl 50 Mg Tablet, 50 MG PO HS, (Reported) Patient Home Medication List Home Medication List Reviewed: Yes Review of Systems Review of Systems Constitutional: No chills, No fever EENTM: No Symptoms Reported Respiratory: Denies Cough, Denies Shortness of Air Cardiovascular: See HPI, Chest Pain Gastrointestinal: No Symptoms Reported Genitourinary: No Symptoms Reported Musculoskeletal: see HPI Skin: no symptoms reported Past Lcumzlb-Saxkrn-Rtfuyc Hx Past Med/Social Hx: Reviewed Nursing Past Med/Soc Hx Patient Social History Type Used: Cigarettes 2nd Hand Smoke Exposure: Yes Recent Foreign Travel: No (N) Contact w/Someone Who Travel: No (N) Recent Hopitalizations: Yes Immunizations Up To Date Date of Pneumonia Vaccine: Nov 08, 2016 Date of Influenza Vaccine: Aug 08, 2012 Seasonal Allergies Seasonal Allergies: No Past Medical History Surgeries: Yes Appendectomy, Gallbladder, Orthopedic, Penile Implant, Renal, Transurethral Resection Respiratory: Yes Asthma, COPD, Emphysema Currently Using CPAP: No Currently Using BIPAP: No Cardiac: Yes (CABG IN 1999; 16 CARDIAC STENTS) Coronary Artery Disease, High Cholesterol, Hypertension Neurological: Yes Headaches /Migraines, Seizure Disorder Reproductive Disorders: Yes (ED--PENILE IMPLANT) Sexually Transmitted Disease: No HIV/AIDS: No Genitourinary: Yes Benign Prostatic Hyperpl, Kidney Stones Gastrointestinal: Yes Gastroesophageal Reflux, Ulcer Musculoskeletal: Yes Arthritis Endocrine: Yes Diabetes, Non-Insulin dep HEENT: Yes Cataract, Glaucoma Loss of Vision: Denies Hearing Impairment: Hard of Hearing Cancer: No Psychosocial: Yes Anxiety, Bipolar, Depression Integumentary: No Blood Disorders: No Adverse Reaction/Blood Tranf: No Family Medical History Patient reports no known family medical history. Physical Exam Vital Signs Vital Signs - First Documented 01/29/19 12:45 Temp 98.5 Pulse 66 Resp 16 B/P (MAP) 115/85 (95) Pulse Ox 98 O2 Delivery Nasal Cannula Capillary Refill : Height, Weight, BMI Height: 5'6.00" Weight: 157lbs. 15.4oz. 71.160366tv; 25.5 BMI Method:Stated General Appearance: No Apparent Distress HEENT: PERRL/EOMI Neck: Full Range of Motion, Normal Inspection Respiratory: Lungs Clear, Normal Breath Sounds, Other (Mild tenderness to palpation and with movement to left lateral chest wall) Cardiovascular: Regular Rate, Rhythm, Normal Peripheral Pulses Gastrointestinal: Non Tender, Soft Extremity: Normal Capillary Refill Neurologic/Psychiatric: Alert, Oriented x3 Skin: Normal Color, Warm/Dry, Other (Mild abrasions and scratches on his left arm from "bedbugs") Progress/Results/Core Measures Results/Orders Lab Results Laboratory Tests Test 01/29/19 13:00 Range/Units White Blood Count 11.5 H 4.3-11.0 10^3/uL Red Blood Count 4.21 L 4.35-5.85 10^6/uL Hemoglobin 11.4 L 13.3-17.7 G/DL Hematocrit 35 L 40-54 % Mean Corpuscular Volume 83 80-99 FL Mean Corpuscular Hemoglobin 27 25-34 PG Mean Corpuscular Hemoglobin Concent 33 32-36 G/DL Red Cell Distribution Width 15.7 H 10.0-14.5 % Platelet Count 444 H 130-400 10^3/uL Mean Platelet Volume 8.0 7.4-10.4 FL Neutrophils (%) (Auto) 69 42-75 % Lymphocytes (%) (Auto) 20 12-44 % Monocytes (%) (Auto) 9 0-12 % Eosinophils (%) (Auto) 1 0-10 % Basophils (%) (Auto) 0 0-10 % Neutrophils # (Auto) 7.9 H 1.8-7.8 X 10^3 Lymphocytes # (Auto) 2.3 1.0-4.0 X 10^3 Monocytes # (Auto) 1.0 0.0-1.0 X 10^3 Eosinophils # (Auto) 0.1 0.0-0.3 10^3/uL Basophils # (Auto) 0.0 0.0-0.1 10^3/uL Sodium Level 131 L 135-145 MMOL/L Potassium Level 4.3 3.6-5.0 MMOL/L Chloride Level 94 L 98-107 MMOL/L Carbon Dioxide Level 21 21-32 MMOL/L Anion Gap 16 H 5-14 MMOL/L Blood Urea Nitrogen 14 7-18 MG/DL Creatinine 0.69 0.60-1.30 MG/DL Estimat Glomerular Filtration Rate > 60 BUN/Creatinine Ratio 20 Glucose Level 139 H 70-105 MG/DL Calcium Level 9.1 8.5-10.1 MG/DL Corrected Calcium 9.2 8.5-10.1 MG/DL Total Bilirubin 0.3 0.1-1.0 MG/DL Aspartate Amino Transf (AST/SGOT) 15 5-34 U/L Alanine Aminotransferase (ALT/SGPT) 10 0-55 U/L Alkaline Phosphatase 72 40-136 U/L Troponin T 37 H <=15 NG/L Total Protein 7.1 6.4-8.2 GM/DL Albumin 3.9 3.2-4.5 GM/DL Micro Results Microbiology 01/29/19 Influenza Types A,B Antigen (MAURI) - Final, Complete My Orders Orders - SYL THEODORE DO Cbc With Automated Diff (01/29/19 12:48) Comprehensive Metabolic Panel (01/29/19 12:48) Influenza A And B Antigens (01/29/19 12:48) Troponin T (01/29/19 12:48) Ekg Tracing (01/29/19 12:48) Chest Pa/Lat (2 View) (01/29/19 12:48) Ketorolac Injection (Toradol Injection) (01/29/19 12:54) Heparin Injection (Heparin Injection) (01/29/19 14:15) Fentanyl Injection (Sublimaze Injection (01/29/19 14:15) Medications Given in ED Current Medications Medications Dose Ordered Sig/Brenna Route Start Time Stop Time Status Last Admin Dose Admin Fentanyl Citrate 50 mcg ONCE ONCE IVP 01/29/19 14:15 01/29/19 14:16 DC 01/29/19 14:17 50 MCG Heparin Sodium (Porcine) 4,000 units ONCE ONCE IV 01/29/19 14:15 01/29/19 14:16 DC 01/29/19 14:16 4,000 UNITS Vital Signs/I&O 01/29/19 12:45 Temp 98.5 Pulse 66 Resp 16 B/P (MAP) 115/85 (95) Pulse Ox 98 O2 Delivery Nasal Cannula Progress Progress Note : Progress Note All then discussed with hospitalist at [facility]. They would like the patient to be transferred ER to ER. Called and discussed with Dr. Garcia who accepts patient. Patient to be transferred in stable condition by EMS. Initial ECG Impression Date: Jan 29, 2019 Initial ECG Impression Time: 12:48 Initial ECG Rate: 80 Initial ECG Rhythm: Normal Sinus, PAC Initial ECG Impression: Nonspecific Changes Departure Impression Primary Impression: Chest pain Qualified Codes: R07.9 - Chest pain, unspecified Additional Impression: Elevated troponin Disposition: 02 XFER SHT-TRM HOSP Condition: Stable Transfer Time Spoke to Accepting Phy: 14:25 Transfer Facility: [facility] Method of Transfer: EMS Departure-Patient Inst. Referrals: LOUANN COREY MD (PCP/Family) Primary Care Physician Patient Instructions: Chest Pain (DC) SYL THEODORE DO Jan 29, 2019 12:54
[2019-01-29 13:24] LABS: BASOPHILS % (AUTO) 0 % (0-10); EOSINOPHILS % (AUTO) 1 % (0-10); HEMATOCRIT 35 % (40-54); HEMOGLOBIN 11.4 G/DL (13.3-17.7); LYMPHOCYTES % (AUTO) 20 % (12-44); MEAN CORPUSCULAR HEMOGLOBIN 27 PG (25-34); MEAN CORPUSCULAR HGB CONC 33 G/DL (32-36); MEAN CORPUSCULAR VOLUME 83 FL (80-99); MONOCYTES % (AUTO) 9 % (0-12); NEUTROPHILS % (AUTO) 69 % (42-75); PLATELET COUNT 444 10^3/uL (130-400); RED CELL DISTRIBUTION WIDTH 15.7 % (10.0-14.5); WHITE BLOOD COUNT 11.5 10^3/uL (4.3-11.0)
[2019-01-29 13:25] LABS: EOSINOPHILS # (AUTO) 0.1 10^3/uL (0.0-0.3); LYMPHOCYTES # (AUTO) 2.3 X 10^3 (1.0-4.0); NEUTROPHILS # (AUTO) 7.9 X 10^3 (1.8-7.8)
[2019-01-29 13:54] LABS: BILIRUBIN,TOTAL 0.3 MG/DL (0.1-1.0); BUN/CREATININE RATIO 20; CALCIUM 9.1 MG/DL (8.5-10.1); CARBON DIOXIDE 21 MMOL/L (21-32); CHLORIDE 94 MMOL/L (98-107); CREATININE SERUM 0.69 MG/DL (0.60-1.30); GFR ESTIMATED > 60; GLUCOSE 139 MG/DL (70-105); POTASSIUM 4.3 MMOL/L (3.6-5.0); SODIUM 131 MMOL/L (135-145)
[2019-01-29 13:55] LABS: ALANINE AMINOTRANSFERASE 10 U/L (0-55); ALBUMIN 3.9 GM/DL (3.2-4.5); ALKALINE PHOSPHATASE 72 U/L (40-136); TOTAL PROTEIN 7.1 GM/DL (6.4-8.2)
--- NOTE | 2019-01-29 14:01 | Diagnostic Imaging Report ---
Indication: Chest pain 02/08/2017 Findings: Frontal and lateral views of the chest demonstrate stable cardiac enlargement. Lungs are clear. There is no pneumothorax. Sternal wires midline. Osseous structures stable. Impression: Stable cardiac enlargement without pulmonary edema or infiltrate. Dictated by: Dictated on workstation # [id number]
[2019-01-29] MEDS ORDERED: fentaNYL INJECTION 100 MCG/2 ML AMP IVP ONE ×2 (14:15→17:15)
--- NOTE | 2019-01-29 14:42 | NUR ---
[facility] unavailable for transport at this time, [facility] called for transfer request. They will call back if they have a crew available.
[2019-01-29] MEDS ORDERED: ASPIRIN 81 MG CHEW (CHILDREN'S ASA) PO ONE (14:45)
--- NOTE | 2019-01-29 15:00 | NUR ---
[facility] called for transfer request, they do not have a crew available.
--- NOTE | 2019-01-29 16:30 | NUR ---
Received call from [facility] that they would accept the transfer to [facility]. Called [facility] dispatch with information at this time.
[2019-01-29 17:15] VITALS: BP 130/47
== END 2019-01-29 17:15 | disposition short-term general hospital (02) ==
LOC: EDUNIT# 12:41 → ER FS 12:42
DX: R07.89 Other chest pain (principal); R79.89 Other specified abnormal findings of blood chemistry; J43.9 Emphysema, unspecified; I25.10 Atherosclerotic heart disease of native coronary artery without angina pectoris; E78.00 Pure hypercholesterolemia, unspecified; I10 Essential (primary) hypertension; G43.909 Migraine, unspecified, not intractable, without status migrainosus; K21.9 Gastro-esophageal reflux disease without esophagitis; G40.909 Epilepsy, unspecified, not intractable, without status epilepticus; E11.9 Type 2 diabetes mellitus without complications; F41.9 Anxiety disorder, unspecified; F31.9 Bipolar disorder, unspecified; Z95.1 Presence of aortocoronary bypass graft; Z87.448 Personal history of other diseases of urinary system; Z87.442 Personal history of urinary calculi; Z87.19 Personal history of other diseases of the digestive system; Z95.5 Presence of coronary angioplasty implant and graft; Z88.0 Allergy status to penicillin; Z88.1 Allergy status to other antibiotic agents; Z88.8 Allergy status to other drugs, medicaments and biological substances; Z88.2 Allergy status to sulfonamides; Z79.51 Long term (current) use of inhaled steroids; Z79.02 Long term (current) use of antithrombotics/antiplatelets; Z79.82 Long term (current) use of aspirin; Z77.22 Contact with and (suspected) exposure to environmental tobacco smoke (acute) (chronic); Z90.49 Acquired absence of other specified parts of digestive tract; Z98.890 Other specified postprocedural states; Z96.0 Presence of urogenital implants; Z90.79 Acquired absence of other genital organ(s)
CPT/HCPCS: 36415; 71046; 80053; 84484; 85025; 87804; 93005; 96374; 96375; 96376

== ENCOUNTER 2019-06-05 17:53 | Emergency (ER) | payer MEDICARE, MEDICAID ==
[~2019-06-05] VITALS: Ht 165.1 cm; Wt 73.0 kg
[~2019-06-05 17:53] MED LIST changes: -EZET10TA27 PO; +EZET10TA49 PO; -TRAZ-189 PO; +TRAZ-222 PO
--- NOTE | 2019-06-05 18:13 | ED Lower Extremity ---
General Chief Complaint: Trauma-Non Activation Stated Complaint: PT FELL AT HOME Nursing Triage Note: Patient reports he fell out of his recliner about 1735. Patient c/o L hip pain. Patient reports he was reaching for a purse and started to slide out of the chair. patient denies hitting head or other injury Nursing Sepsis Screen: No Definite Risk Source: patient, EMS, RN notes reviewed Exam Limitations: no limitations History of Present Illness Date Seen by Provider: Jun 05, 2019 Time Seen by Provider: 18:07 Initial Comments Patient presents c/ c/o left hip pain p/ falling out of a recliner this afternoon just [employer]. States he didn't hit his head. Initially denied any other injuries but then later began to c/o some neck and buttock pain. States he was reaching for something and caused him to slid out of his chair. Onset: just prior to arrival Severity: moderate (8/10) Pain/Injury Location: left hip Method of Injury: fell Modifying Factors: Worse With Movement; Improves With Rest Allergies and Home Medications Allergies Coded Allergies: Penicillins (Verified Allergy, Unknown, 04/22/17) diazepam (Unverified Allergy, Unknown, 03/07/17) doxycycline (Unverified Allergy, Unknown, RASH, 03/07/17) phenobarbital (Unverified Allergy, Unknown, 03/07/17) RELAXES ME TOO MUCH piperacillin (Unverified Allergy, Unknown, RASH, PT HAS RECEIVED CEFAZOLIN IN THE PAST W/O ISSUE, 03/08/17) sulfamethoxazole (Verified Allergy, Unknown, 04/22/17) terazosin (Unverified Allergy, Unknown, 03/07/17) CHEST PAIN Home Medications Albuterol Sulfate 1 Puff Puff, 2 PUFF INH Q4H PRN for SHORTNESS OF BREATH, (Reported) Aspirin 81 Mg Tablet.dr, 81 MG PO DAILY, (Reported) Bethanechol Chloride 25 Mg Tablet, 25 MG PO QID, (Reported) Clopidogrel Bisulfate 75 Mg Tablet, 75 MG PO DAILY, (Reported) Ezetimibe 10 Mg Tablet, 10 MG PO HS, (Reported) Fenofibrate Nanocrystallized 145 Mg Tablet, 145 MG PO DAILY, (Reported) Fentanyl 1 Each Patch.td72, 50 MCG TD Q72H Prescribed by: CARLOS ESCOTO on 07/26/17 0946 Ferrous Sulfate 325 Mg Tablet, 325 MG PO DAILY Prescribed by: CARLOS ESCOTO on 07/26/17945 Fluoxetine HCl 20 Mg Capsule, 40 MG PO DAILY, (Reported) TAKES 2 (20MG) CAPSULES Fluticasone Propionate 1 Ea Aero, 1 PUFF INH BID, (Reported) Fluticasone Propionate 16 Gm [place].susp, 2 SPRAYS NS DAILY, (Reported) Gabapentin 300 Mg Capsule, 300 MG PO HS, (Reported) Isosorbide Mononitrate 60 Mg Tab, 60 MG PO BID, (Reported) Lactulose 20 Gm/30 Ml Solution, 10 GM PO BID Prescribed by: CARLOS ESCOTO on 07/26/17946 Lorazepam 1 Mg Tablet, 1 MG PO BID, (Reported) Multivitamin 1 Each Capsule, 1 CAP PO DAILY, (Reported) Nitroglycerin 0.4 Mg Tab.subl, 0.4 MG SL UD PRN for CHEST PAIN, (Reported) Olanzapine 2.5 Mg Tablet, 2.5 MG PO HS, (Reported) Oxycodone HCl 20 Mg Tab.er.12h, 20 MG PO BID Prescribed by: CARLOS ESCOTO on 07/26/17945 Oxycodone HCl/Acetaminophen 1 Each Tablet, 1 TAB PO Q4H PRN for BREAKTHROUGH PAIN Prescribed by: CARLOS ESCOTO on 07/26/17945 Phenytoin Sodium Extended 100 Mg Capsule, 200 MG PO BID, (Reported) TAKES 2 (100MG) CAPSULES Pioglitazone HCl 30 Mg Tablet, 30 MG PO DAILY, (Reported) Ramipril 10 Mg Capsule, 10 MG PO DAILY, (Reported) Ranitidine HCl 150 Mg Tablet, 150 MG PO HS, (Reported) Sennosides/Docusate Sodium 1 Each Tablet, 1 EA PO BID Prescribed by: CARLOS ESCOTO on 07/26/17946 Simvastatin 40 Mg Tablet, 40 MG PO 1800, (Reported) Tamsulosin HCl 0.4 Mg Cap, 0.4 MG PO HS, (Reported) Temazepam 7.5 Mg Capsule, 7.5 MG PO HS PRN for INSOMNIA, (Reported) Timolol 5 Ml Drops, 1 DROP OU BID, (Reported) 0.5% Trazodone HCl 50 Mg Tablet, 50 MG PO HS, (Reported) Patient Home Medication List Home Medication List Reviewed: Yes Review of Systems Constitutional: see HPI Musculoskeletal: see HPI, other (neck, buttock, and left hip pain.) All Other Systems Reviewed Negative Unless Noted: Yes (Negative excepted noted.) Past Ouusrpe-Rpijeg-Fattie Hx Patient Social History Alcohol Use: Denies Use Recreational Drug Use: No Type Used: Cigarettes 2nd Hand Smoke Exposure: Yes Recent Foreign Travel: No Contact w/Someone Who Travel: No Recent Infectious Disease Expo: No Recent Hopitalizations: No Immunizations Up To Date Date of Pneumonia Vaccine: Nov 08, 2016 Date of Influenza Vaccine: Aug 08, 2012 Seasonal Allergies Seasonal Allergies: No Past Medical History Surgeries: Yes Appendectomy, Cardiac, CABG, Coronary Stent, Gallbladder, Orthopedic, Penile Implant, Renal, Transurethral Resection Respiratory: Yes Asthma, COPD, Emphysema Currently Using CPAP: No Currently Using BIPAP: No Cardiac: Yes (CABG [place] 1999; 16 CARDIAC STENTS) Coronary Artery Disease, High Cholesterol, Hypertension Neurological: Yes Headaches /Migraines, Seizure Disorder Reproductive Disorders: Yes (ED--PENILE IMPLANT) Sexually Transmitted Disease: No HIV/AIDS: No Genitourinary: Yes Benign Prostatic Hyperpl, Kidney Stones Gastrointestinal: Yes Gastroesophageal Reflux, Ulcer Musculoskeletal: Yes Arthritis Endocrine: Yes Diabetes, Non-Insulin dep HEENT: Yes Cataract, Glaucoma Loss of Vision: Denies Hearing Impairment: Hard of Hearing Cancer: No Psychosocial: Yes Anxiety, Bipolar, Depression Integumentary: No Blood Disorders: No Adverse Reaction/Blood Tranf: No Family Medical History Patient reports no known family medical history. Physical Exam Vital Signs Vital Signs - First Documented 06/05/19 17:59 Temp 99.2 Pulse 84 Resp 18 B/P (MAP) 125/68 (87) Pulse Ox 95 O2 Delivery Nasal Cannula O2 Flow Rate 2.00 Capillary Refill : Less Than 3 Seconds Height, Weight, BMI Height: 5'5.00" Weight: 160lbs. 15.4oz. [id number]; 25.5 BMI Method:Estimated General Appearance: WD/WN, no apparent distress HEENT: normal ENT inspection Neck: tender lateral (mild B/L) Cardiovascular: regular rate, rhythm Respiratory: no respiratory distress Back: no vertebral tenderness Hips: left hip limited range of motion, left hip pain Neurologic/Psychiatric: no motor/sensory deficits, alert, normal mood/affect, oriented x 3 Skin: warm/dry Progress/Results/Core Measures Results/Orders My Orders Orders - CHICHI CARDENAS DO Pelvis With Left Hip 2-3 View (06/05/19 18:03) Ct Head/Cervical Spine Wo (06/05/19 18:13) Ketorolac Injection (Toradol Injection) (06/05/19 19:00) Dexamethasone Injection (Decadron Inject (06/05/19 19:00) Ketorolac Injection (Toradol Injection) (06/05/19 19:20) Dexamethasone Injection (Decadron Inject (06/05/19 19:20) Medications Given in ED Current Medications Medications Dose Ordered Sig/Brenna Route Start Time Stop Time Status Last Admin Dose Admin Dexamethasone Sodium Phosphate 10 mg ONCE ONCE IV 06/05/19 19:00 06/05/19 19:39 DC 06/05/19 19:31 10 MG Ketorolac Tromethamine 15 mg ONCE ONCE IVP 06/05/19 19:00 06/05/19 19:39 DC 06/05/19 19:30 15 MG Ketorolac Tromethamine 15 mg STK-MED ONCE .ROUTE 06/05/19 19:20 06/05/19 19:27 DC 06/05/19 19:31 15 MG Vital Signs/I&O 06/05/19 06/05/19 17:59 19:38 Temp 99.2 Pulse 84 81 Resp 18 16 B/P (MAP) 125/68 (87) 126/62 (83) Pulse Ox 95 95 O2 Delivery Nasal Cannula Room Air O2 Flow Rate 2.00 Blood Pressure Mean: 87 Diagnostic Imaging Diagonstic Imaging: Xray, CT Plain Films/CT/US/NM/MRI: c-spine (nothing acute), pelvis (negative), hip (left-negative), head (nothing acute) Departure Impression Primary Impression: Fall Additional Impressions: Contusion of left hip Contusion, buttock Sprain of neck/back Disposition: 01 HOME, SELF-CARE Condition: Stable Departure-Patient Inst. Decision time for Depature: 19:03 Referrals: LOUANN COREY MD (PCP/Family) Primary Care Physician Patient Instructions: Neck Sprain (DC), Contusion (DC) Add. Discharge Instructions: CONTINUE ALL YOUR CURRENT MEDS. ICE THE AREAS OF INJURY FOR THE NEXT 48 HOURS. FOLLOW UP WITH YOUR PCP IF ANY FURTHER PROBLEMS. All discharge instructions reviewed with patient and/or family. Voiced understanding. CHICHI CARDENAS DO Jun 05, 2019 18:13
--- NOTE | 2019-06-05 18:31 | Diagnostic Imaging Report ---
INDICATION: Fall from chair. Left hip pain. FINDINGS: 3 views. Gamma nail fixation of old healed intertrochanteric fracture is noted. No evidence of hardware complication. No finding to indicate acute fractures. Femoral heads are in normal articulation bilaterally. Bony pelvis is intact. IMPRESSION: Finding consistent with bilateral healed femoral fractures with no acute abnormalities demonstrated. Dictated by: Dictated on workstation # [id number]
--- NOTE | 2019-06-05 18:54 | Diagnostic Imaging Report ---
PROCEDURE: CT head and CT cervical spine without contrast. TECHNIQUE: Multiple contiguous axial images were obtained through the brain and cervical spine without the use of intravenous contrast. Sagittal and coronal reformations through the cervical spine were then performed. Auto Exposure Controls were utilized during the CT exam to meet ALARA standards for radiation dose reduction. INDICATION: Fall, neck pain, patient is on blood thinners. COMPARISON: No priors. FINDINGS: Head: There is no intracranial hemorrhage and there is no acute extra-axial fluid collection. Some mild prominence of subarachnoid CSF spaces along the frontal convexities, likely a mild degree of atrophy. No michael hydrocephalus. No sulcal effacement. No focal or generalized cerebral edema. There is no evidence for an elevation of the intracerebral pressures. No calvarial fracture deformity or hemo-sinus identified. There is membrane thickening in the left maxillary. CT cervical spine: Some chronic-appearing stature loss at C7 with well-corticated sclerotic endplates. No acute endplate irregularity. No dislocation. There are degenerative changes to the discs, endplates, facets, and uncovertebral joints throughout the cervical spine. No evidence for paravertebral hemorrhage. There are vascular calcifications on an atherosclerotic basis in the left greater than right carotids. The thoracic inlet and visualized pulmonary apices were nonacute. IMPRESSION: 1. CT head: Some mild atrophic changes but no hemorrhage, fracture, or acute-appearing abnormality. 2. CT cervical spine: Degenerative changes with no acute-appearing fracture. Chronic old stature loss to the lower cervical spine, most notably at C7 noted. Dictated by: Dictated on workstation # [id number]
[2019-06-05] MEDS ORDERED: DEXAMETHASONE 10 MG/ML (DECADRON) 1 ML VIAL IV ONE (19:00)
[2019-06-05] MEDS ORDERED: KETOROLAC 30 MG/ML VIAL IVP ONE (19:00)
[2019-06-05] MEDS ORDERED: DEXAMETHASONE 10 MG/ML (DECADRON) 1 ML VIAL ONE (19:20)
[2019-06-05] MEDS ORDERED: KETOROLAC 15 MG/ML VIAL ONE (19:20)
[2019-06-05 19:38] VITALS: BP 126/62
== END 2019-06-05 19:39 | disposition home or self-care (01) ==
LOC: EDUNIT# 17:53 → ER FS 17:54
DX: S13.9XXA Sprain of joints and ligaments of unspecified parts of neck, initial encounter (principal); S33.5XXA Sprain of ligaments of lumbar spine, initial encounter; S70.02XA Contusion of left hip, initial encounter; S30.0XXA Contusion of lower back and pelvis, initial encounter; I10 Essential (primary) hypertension; E11.9 Type 2 diabetes mellitus without complications; F41.9 Anxiety disorder, unspecified; F31.9 Bipolar disorder, unspecified; I25.10 Atherosclerotic heart disease of native coronary artery without angina pectoris; J43.9 Emphysema, unspecified; G43.909 Migraine, unspecified, not intractable, without status migrainosus; G40.909 Epilepsy, unspecified, not intractable, without status epilepticus; E78.00 Pure hypercholesterolemia, unspecified; K21.9 Gastro-esophageal reflux disease without esophagitis; Z95.1 Presence of aortocoronary bypass graft; Z95.5 Presence of coronary angioplasty implant and graft; Z79.82 Long term (current) use of aspirin; Z79.02 Long term (current) use of antithrombotics/antiplatelets; Z79.51 Long term (current) use of inhaled steroids; Z88.1 Allergy status to other antibiotic agents; Z88.2 Allergy status to sulfonamides; Z88.8 Allergy status to other drugs, medicaments and biological substances; Z88.0 Allergy status to penicillin; Z87.442 Personal history of urinary calculi; W07.XXXA Fall from chair, initial encounter; Y92.009 Unspecified place in unspecified non-institutional (private) residence as the place of occurrence of the external cause
CPT/HCPCS: 70450; 72125; 73502

== ENCOUNTER → 2019-06-08 | Outpatient (CLI) | payer MEDICARE, MEDICAID ==
[2019-06-08 09:24] LABS: BACTERIA,URINE FEW /HPF; BILIRUBIN,URINE NEGATIVE (NEGATIVE); CLARITY,URINE CLEAR; COLOR,URINE YELLOW; GLUCOSE, URINE (UA) NEGATIVE (NEGATIVE); KETONES,URINE NEGATIVE (NEGATIVE); LEUKOCYTE ESTERASE ,URINE TRACE (NEGATIVE); NITRITE,URINE NEGATIVE (NEGATIVE); PROTEIN,URINE NEGATIVE (NEGATIVE); UROBILINOGEN,URINE 0.2 MG/DL (NORMAL)
[2019-06-08 09:36] LABS: BUN/CREATININE RATIO 21; CARBON DIOXIDE 24 MMOL/L (21-32); CHLORIDE 96 MMOL/L (98-107); GFR ESTIMATED > 60; POTASSIUM 4.3 MMOL/L (3.6-5.0); SODIUM 135 MMOL/L (135-145)
[2019-06-08 09:37] LABS: CALCIUM 9.3 MG/DL (8.5-10.1); GLUCOSE 147 MG/DL (70-105)
== END ==
LOC: LAB FS 08:50
PROVIDERS: ATTEND Urology
DX: N40.1 Benign prostatic hyperplasia with lower urinary tract symptoms (principal)
CPT/HCPCS: 36415; 80048; 81000; 84153; 87088

== ENCOUNTER → 2019-12-18 | Outpatient (CLI) | payer MEDICARE, MEDICAID ==
[~2019-12-18] MED LIST changes: -ALFU10TA11 PO; +ALFU10TA12 PO; +EZET10TA17 PO; +FLUO20CA45 PO; +SIMV40TA25 PO; -SIMV40TA4 PO; -TAMS0.4C98 PO; -TRAZ-222 PO; +TRZ50T PO
[2019-12-18 14:02] LABS: CLARITY,URINE CLOUDY; COLOR,URINE YELLOW; GLUCOSE, URINE (UA) NEGATIVE (NEGATIVE); PROTEIN,URINE NEGATIVE (NEGATIVE)
[2019-12-18 14:03] LABS: BACTERIA,URINE MODERATE /HPF; BILIRUBIN,URINE NEGATIVE (NEGATIVE); KETONES,URINE NEGATIVE (NEGATIVE); LEUKOCYTE ESTERASE ,URINE 3+ (NEGATIVE); NITRITE,URINE NEGATIVE (NEGATIVE); RBC,URINE RARE /HPF; SQUAMOUS EPITHELIAL CELL,UR RARE /HPF; WBC,URINE >100 /HPF
[2019-12-18 14:06] LABS: BUN/CREATININE RATIO 24; CARBON DIOXIDE 24 MMOL/L (21-32); CHLORIDE 93 MMOL/L (98-107); CREATININE SERUM 0.72 MG/DL (0.60-1.30); GFR ESTIMATED > 60; POTASSIUM 4.1 MMOL/L (3.6-5.0); SODIUM 132 MMOL/L (135-145)
[2019-12-18 14:07] LABS: ALANINE AMINOTRANSFERASE 7 U/L (0-55); ALKALINE PHOSPHATASE 70 U/L (40-136); BILIRUBIN,TOTAL 0.3 MG/DL (0.1-1.0); CALCIUM 9.3 MG/DL (8.5-10.1); GLUCOSE 103 MG/DL (70-105); TOTAL PROTEIN 7.1 GM/DL (6.4-8.2)
== END ==
LOC: IHC 12:30
PROVIDERS: ATTEND Family Medicine
DX: Z01.89 Encounter for other specified special examinations (principal); Z79.899 Other long term (current) drug therapy
CPT/HCPCS: 36415; 80053; 80185; 81000; 83735; 87088

== ENCOUNTER 2020-01-26 19:24 | Emergency (ER) | payer MEDICARE, MEDICAID ==
[~2020-01-26] VITALS: Ht 167.7 cm; Wt 80.0 kg
[~2020-01-26 19:24] MED LIST changes: +FENO145T26 PO; -FENO145T37 PO; -FLUO20CA45 PO; +FLUO20CA46 PO
--- NOTE | 2020-01-26 20:01 | ED Neurological Problem ---
General Chief Complaint: Neurological Problems Stated Complaint: SEIZURE Nursing Triage Note: pt states he had a seizure at home, remembers entire seizure, states "full blown" initially but slowed down afterwards to hand tremors Nursing Sepsis Screen: No Definite Risk History of Present Illness Date Seen by Provider: Jan 26, 2020 Time Seen by Provider: 19:30 Initial Comments Patient is here a seizure evidently was fairly protracted he was conscious during at which he describes at that cell usually is was taken to her recliner by his caregiver. His nose she's had more seizures lately was at one time on for Dilantin a day and has been back down to 3 because his levels were high don't know what his last level was or exactly when it was spent a long time since he had any evaluation beyond what he has now has had significant cardiac history is not felt ill lately and has not noted any saying different than his day to day Severity: moderate Associated Symptoms: confusion; No loss of consciousness; seizures, trouble walking, weakness Allergies and Home Medications Allergies Coded Allergies: Penicillins (Verified Allergy, Unknown, 04/22/17) diazepam (Unverified Allergy, Unknown, 03/07/17) doxycycline (Unverified Allergy, Unknown, RASH, 03/07/17) phenobarbital (Unverified Allergy, Unknown, 03/07/17) RELAXES ME TOO MUCH piperacillin (Unverified Allergy, Unknown, RASH, PT HAS RECEIVED CEFAZOLIN IN THE PAST W/O ISSUE, 03/08/17) sulfamethoxazole (Verified Allergy, Unknown, 04/22/17) terazosin (Unverified Allergy, Unknown, 03/07/17) CHEST PAIN Home Medications Albuterol Sulfate 1 Puff Puff, 2 PUFF INH Q4H PRN for SHORTNESS OF BREATH, (Reported) Aspirin 81 Mg Tablet.dr, 81 MG PO DAILY, (Reported) Bethanechol Chloride 25 Mg Tablet, 25 MG PO QID, (Reported) Clopidogrel Bisulfate 75 Mg Tablet, 75 MG PO DAILY, (Reported) Ezetimibe 10 Mg Tablet, 10 MG PO HS, (Reported) Fenofibrate Nanocrystallized 145 Mg Tablet, 145 MG PO DAILY, (Reported) Fentanyl 1 Each Patch.td72, 50 MCG TD Q72H Prescribed by: CARLOS ESCOTO on 07/26/17 0946 Ferrous Sulfate 325 Mg Tablet, 325 MG PO DAILY Prescribed by: CARLOS ESCOTO on 07/26/17945 Fluoxetine HCl 20 Mg Capsule, 40 MG PO DAILY, (Reported) TAKES 2 (20MG) CAPSULES Fluticasone Propionate 1 Ea Aero, 1 PUFF INH BID, (Reported) Fluticasone Propionate 16 Gm [place].susp, 2 SPRAYS NS DAILY, (Reported) Gabapentin 300 Mg Capsule, 300 MG PO HS, (Reported) Isosorbide Mononitrate 60 Mg Tab, 60 MG PO BID, (Reported) Lactulose 20 Gm/30 Ml Solution, 10 GM PO BID Prescribed by: CARLOS ESCOTO on 07/26/17946 Lorazepam 1 Mg Tablet, 1 MG PO BID, (Reported) Multivitamin 1 Each Capsule, 1 CAP PO DAILY, (Reported) Nitroglycerin 0.4 Mg Tab.subl, 0.4 MG SL UD PRN for CHEST PAIN, (Reported) Olanzapine 2.5 Mg Tablet, 2.5 MG PO HS, (Reported) Oxycodone HCl 20 Mg Tab.er.12h, 20 MG PO BID Prescribed by: CARLOS ESCOTO on 07/26/17945 Oxycodone HCl/Acetaminophen 1 Each Tablet, 1 TAB PO Q4H PRN for BREAKTHROUGH PAIN Prescribed by: CARLOS ESCOTO on 07/26/17945 Phenytoin Sodium Extended 100 Mg Capsule, 200 MG PO BID, (Reported) TAKES 2 (100MG) CAPSULES Pioglitazone HCl 30 Mg Tablet, 30 MG PO DAILY, (Reported) Ramipril 10 Mg Capsule, 10 MG PO DAILY, (Reported) Ranitidine HCl 150 Mg Tablet, 150 MG PO HS, (Reported) Sennosides/Docusate Sodium 1 Each Tablet, 1 EA PO BID Prescribed by: CARLOS ESCOTO on 07/26/17946 Simvastatin 40 Mg Tablet, 40 MG PO 1800, (Reported) Tamsulosin HCl 0.4 Mg Cap, 0.4 MG PO HS, (Reported) Temazepam 7.5 Mg Capsule, 7.5 MG PO HS PRN for INSOMNIA, (Reported) Timolol 5 Ml Drops, 1 DROP OU BID, (Reported) 0.5% Trazodone HCl 50 Mg Tablet, 50 MG PO HS, (Reported) Patient Home Medication List Home Medication List Reviewed: Yes Review of Systems Review of Systems Constitutional: No chills, No fever, No malaise Eyes: Denies Blurred Vision, Denies Vision Changes Ears, Nose, Mouth, Throat: denies nose discharge, denies throat swelling Respiratory: No cough, No short of breath, No wheezing Cardiovascular: No chest pain, No edema, No palpitations Gastrointestinal: No abdominal pain, No constipation, No nausea, No vomiting Genitourinary: No dysuria, No frequency, No incontinence Musculoskeletal: No joint swelling, No muscle stiffness Skin: No lesions, No rash Psychiatric/Neurological: Denies Headache, Denies Numbness, Denies Tingling Past Ieyrmkw-Xvtqkp-Xchgfs Hx Past Med/Social Hx: Reviewed Nursing Past Med/Soc Hx Patient Social History Alcohol Use: Denies Use Recreational Drug Use: No Smoking Status: Current Everyday Smoker Type Used: Cigarettes 2nd Hand Smoke Exposure: Yes Recent Foreign Travel: No Contact w/Someone Who Travel: No Recent Infectious Disease Expo: No Recent Hopitalizations: No Physical Abuse: No Sexual Abuse: No Mistreated: No Fear: No Immunizations Up To Date Date of Pneumonia Vaccine: Nov 08, 2016 Date of Influenza Vaccine: Aug 08, 2012 Seasonal Allergies Seasonal Allergies: No Past Medical History Surgeries: Yes Appendectomy, Cardiac, CABG, Coronary Stent, Gallbladder, Orthopedic, Penile Im plant, Renal, Transurethral Resection Respiratory: Yes Asthma, COPD, Emphysema Currently Using CPAP: No Currently Using BIPAP: No Cardiac: Yes (CABG IN 1999; 16 CARDIAC STENTS) Coronary Artery Disease, High Cholesterol, Hypertension Neurological: Yes Headaches /Migraines, Seizure Disorder Reproductive Disorders: Yes (ED--PENILE IMPLANT) Sexually Transmitted Disease: No HIV/AIDS: No Genitourinary: Yes Benign Prostatic Hyperpl, Kidney Stones Gastrointestinal: Yes Gastroesophageal Reflux, Ulcer Musculoskeletal: Yes Arthritis Endocrine: Yes Diabetes, Non-Insulin dep HEENT: Yes Cataract, Glaucoma Loss of Vision: Denies Hearing Impairment: Hard of Hearing Cancer: No Psychosocial: Yes Anxiety, Bipolar, Depression Integumentary: No Blood Disorders: No Adverse Reaction/Blood Tranf: No Family Medical History Patient reports no known family medical history. Physical Exam Vital Signs Vital Signs - First Documented 01/26/20 19:34 Temp 36.3 Pulse 71 Resp 18 B/P (MAP) 132/65 (87) Pulse Ox 97 O2 Delivery Room Air Capillary Refill : Less Than 3 Seconds Height, Weight, BMI Height: 5'5.00" Weight: 160lbs. 15.4oz. 73.536985rt; 28.00 BMI Method:Estimated General Appearance: WD/WN, no apparent distress HEENT: PERRL/EOMI, TMs normal, pharynx normal, other (ectropion noted in both eyes) Neck: supple, normal inspection Respiratory: lungs clear, normal breath sounds Cardiovascular: regular rate, rhythm, other (soft S1 and S2) Gastrointestinal: non tender, no organomegaly Extremities: normal range of motion, no pedal edema Neurologic/Psychiatric: no motor/sensory deficits, normal mood/affect, oriented x 3, other (back to baseline although he states he does have mild confusion as opposed to his usual state) Progress/Results/Core Measures Results/Orders Lab Results Laboratory Tests Test 01/26/20 20:20 01/26/20 20:27 Range/Units Urine Color YELLOW Urine Clarity CLEAR Urine pH 7.0 5-9 Urine Specific Omro <=1.005 1.016-1.022 Urine Protein NEGATIVE NEGATIVE Urine Glucose (UA) NEGATIVE NEGATIVE Urine Ketones NEGATIVE NEGATIVE Urine Nitrite NEGATIVE NEGATIVE Urine Bilirubin NEGATIVE NEGATIVE Urine Urobilinogen 0.2 < = 1.0 MG/DL Urine Leukocyte Esterase TRACE H NEGATIVE Urine RBC (Auto) NEGATIVE NEGATIVE Urine RBC NONE /HPF Urine WBC 5-10 H /HPF Urine Squamous Epithelial Cells NONE /HPF Urine Crystals NONE /LPF Urine Bacteria MODERATE H /HPF Urine Casts NONE /LPF Urine Mucus NONE /LPF Urine Culture Indicated YES White Blood Count 7.3 4.3-11.0 10^3/uL Red Blood Count 4.12 L 4.35-5.85 10^6/uL Hemoglobin 11.3 L 13.3-17.7 G/DL Hematocrit 34 L 40-54 % Mean Corpuscular Volume 83 80-99 FL Mean Corpuscular Hemoglobin 27 25-34 PG Mean Corpuscular Hemoglobin Concent 33 32-36 G/DL Red Cell Distribution Width 16.1 H 10.0-14.5 % Platelet Count 359 130-400 10^3/uL Mean Platelet Volume 7.7 7.4-10.4 FL Neutrophils (%) (Auto) 64 42-75 % Lymphocytes (%) (Auto) 26 12-44 % Monocytes (%) (Auto) 1 0-12 % Eosinophils (%) (Auto) 0 0-10 % Basophils (%) (Auto) 0 0-10 % Neutrophils # (Auto) 4.7 1.8-7.8 X 10^3 Lymphocytes # (Auto) 1.9 1.0-4.0 X 10^3 Monocytes # (Auto) 0.6 0.0-1.0 X 10^3 Eosinophils # (Auto) 0.1 0.0-0.3 10^3/uL Basophils # (Auto) 0.0 0.0-0.1 10^3/uL Sodium Level 129 L 135-145 MMOL/L Potassium Level 4.3 3.6-5.0 MMOL/L Chloride Level 95 L 98-107 MMOL/L Carbon Dioxide Level 21 21-32 MMOL/L Anion Gap 13 5-14 MMOL/L Blood Urea Nitrogen 13 7-18 MG/DL Creatinine 0.65 0.60-1.30 MG/DL Estimat Glomerular Filtration Rate > 60 BUN/Creatinine Ratio 20 Glucose Level 95 70-105 MG/DL Calcium Level 9.1 8.5-10.1 MG/DL Corrected Calcium 9.1 8.5-10.1 MG/DL Total Bilirubin 0.3 0.1-1.0 MG/DL Aspartate Amino Transf (AST/SGOT) 12 5-34 U/L Alanine Aminotransferase (ALT/SGPT) 6 0-55 U/L Alkaline Phosphatase 64 40-136 U/L Total Protein 6.9 6.4-8.2 GM/DL Albumin 4.0 3.2-4.5 GM/DL My Orders Orders - ISABELLA DEAL JR, MD Cbc With Automated Diff (01/26/20 19:56) Comprehensive Metabolic Panel (01/26/20 19:56) Dilantin (Phenytoin) (01/26/20 19:56) Creatine Kinase (01/26/20 19:56) Urinalysis (01/26/20 19:56) Urine Culture (01/26/20 20:20) Vital Signs/I&O 01/26/20 19:34 Temp 36.3 Pulse 71 Resp 18 B/P (MAP) 132/65 (87) Pulse Ox 97 O2 Delivery Room Air Blood Pressure Mean: 87 Progress Progress Note : Time: 22:00 Progress Note Discussed with Dr. Hammond about potentially admitting for hyponatremia on the seizure I do feel like this is somewhat of borderline discussion for admission at this time concerned about the Gabe Rhodes at the hospital and would rather work this jaxon as an outpatient if possible discusses with the patient he does have caregivers coming in regularly will go to fluid restriction for Dilantin a day 200 twice a day recheck with his physician on Wednesday Keflex for his UTI follow-up here if any problems whatsoever. Departure Impression Primary Impression: Hyponatremia Additional Impression: Urinary tract infection, acute Disposition: HOME, SELF-CARE Condition: Stable Departure-Patient Inst. Referrals: LOUANN COREY MD (PCP/Family) Primary Care Physician Patient Instructions: Hyponatremia, Urinary Tract Infection, Adult (DC) Scripts Cephalexin (Keflex) 500 Mg Capsule 500 MG PO QID, #40 CAP Prov: ISABELLA DEAL JR, MD 01/26/20 ISABELLA DEAL JR, MD Jan 26, 2020 20:01
[2020-01-26 20:43] LABS: HEMATOCRIT 34 % (40-54); HEMOGLOBIN 11.3 G/DL (13.3-17.7); MEAN CORPUSCULAR HEMOGLOBIN 27 PG (25-34); WHITE BLOOD COUNT 7.3 10^3/uL (4.3-11.0)
[2020-01-26 20:44] LABS: BASOPHILS % (AUTO) 0 % (0-10); EOSINOPHILS # (AUTO) 0.1 10^3/uL (0.0-0.3); EOSINOPHILS % (AUTO) 0 % (0-10); LYMPHOCYTES # (AUTO) 1.9 X 10^3 (1.0-4.0); LYMPHOCYTES % (AUTO) 26 % (12-44); MEAN CORPUSCULAR HGB CONC 33 G/DL (32-36); MEAN CORPUSCULAR VOLUME 83 FL (80-99); MEAN PLATELET VOLUME 7.7 FL (7.4-10.4); MONOCYTES # (AUTO) 0.6 X 10^3 (0.0-1.0); MONOCYTES % (AUTO) 1 % (0-12); NEUTROPHILS # (AUTO) 4.7 X 10^3 (1.8-7.8); NEUTROPHILS % (AUTO) 64 % (42-75); PLATELET COUNT 359 10^3/uL (130-400); RED CELL DISTRIBUTION WIDTH 16.1 % (10.0-14.5)
[2020-01-26 21:11] LABS: BUN/CREATININE RATIO 20; CARBON DIOXIDE 21 MMOL/L (21-32); CHLORIDE 95 MMOL/L (98-107); CREATININE SERUM 0.65 MG/DL (0.60-1.30); GFR ESTIMATED > 60; POTASSIUM 4.3 MMOL/L (3.6-5.0); SODIUM 129 MMOL/L (135-145)
[2020-01-26 21:12] LABS: ALANINE AMINOTRANSFERASE 6 U/L (0-55); ALKALINE PHOSPHATASE 64 U/L (40-136); BILIRUBIN,TOTAL 0.3 MG/DL (0.1-1.0); CALCIUM 9.1 MG/DL (8.5-10.1); GLUCOSE 95 MG/DL (70-105); TOTAL PROTEIN 6.9 GM/DL (6.4-8.2)
[2020-01-26 21:16] LABS: BILIRUBIN,URINE NEGATIVE (NEGATIVE); CLARITY,URINE CLEAR; COLOR,URINE YELLOW; GLUCOSE, URINE (UA) NEGATIVE (NEGATIVE); KETONES,URINE NEGATIVE (NEGATIVE); LEUKOCYTE ESTERASE ,URINE TRACE (NEGATIVE); NITRITE,URINE NEGATIVE (NEGATIVE); PROTEIN,URINE NEGATIVE (NEGATIVE)
[2020-01-26 21:17] LABS: BACTERIA,URINE MODERATE /HPF
--- NOTE | 2020-01-26 21:45 | NUR ---
caregiver called update given on pt status
--- NOTE | 2020-01-26 22:00 | NUR ---
sister called update given, she will come out to visit pt.
[2020-01-26] MEDS ORDERED: CEPH-507 PO (22:02)
[2020-01-26] MEDS ORDERED: CEPHALEXIN 250 MG (KEFLEX) CAP PO ONE (22:15)
[2020-01-26 22:16] VITALS: BP 123/55
[2020-01-27 15:03] LABS: CREATINE KINASE 24 U/L (30-200)
== END 2020-01-26 22:16 | disposition home or self-care (01) ==
LOC: EDUNIT# 19:24 → ER FS 19:25
DX: E87.1 Hypo-osmolality and hyponatremia (principal); N39.0 Urinary tract infection, site not specified; J43.9 Emphysema, unspecified; J45.909 Unspecified asthma, uncomplicated; I10 Essential (primary) hypertension; E78.00 Pure hypercholesterolemia, unspecified; I25.10 Atherosclerotic heart disease of native coronary artery without angina pectoris; G40.909 Epilepsy, unspecified, not intractable, without status epilepticus; G43.909 Migraine, unspecified, not intractable, without status migrainosus; K21.9 Gastro-esophageal reflux disease without esophagitis; E11.9 Type 2 diabetes mellitus without complications; F41.9 Anxiety disorder, unspecified; F31.9 Bipolar disorder, unspecified; F17.210 Nicotine dependence, cigarettes, uncomplicated; Z79.02 Long term (current) use of antithrombotics/antiplatelets; Z88.0 Allergy status to penicillin; Z88.8 Allergy status to other drugs, medicaments and biological substances; Z88.1 Allergy status to other antibiotic agents; Z88.2 Allergy status to sulfonamides; Z95.1 Presence of aortocoronary bypass graft
CPT/HCPCS: 36415; 80053; 80185; 81000; 82550; 85025; 87088; 99283

== ENCOUNTER 2020-02-16 11:23 | Emergency (ER) | payer MEDICARE, MEDICAID ==
[~2020-02-16] VITALS: Ht 157 cm; Wt 77.0 kg
[~2020-02-16 11:23] MED LIST changes: +CEPH-507 PO
--- OUTSIDE RECORDS SUMMARY | 2020-02-16 11:35 | XMS REPORT | Clinical Summary ---
Author Author [facility] Organization [facility] Address Unknown Phone Unavailable Care Team Providers Care Housing Counselor Name Role Phone Tiesha Werner MD Unavailable Unavailable Kentrell Santizo MD Unavailable Doug Maravilla PA-C Unavailable Shahram Mccallum MD PCP Unavailable Ivon Hancock RN Unavailable Unavailable Chip Bowers MD Unavailable Unavailable Source Comments Some departments are not documenting in the electronic medical record. If you d o not see the information that you expected, contact Release of Information in [facility] Health Information Management department at [phone] for further assistan ce in locating additional records.[facility] Allergies Comments Active Allergy Reactions Severity Noted Date Penicillins HIVES High 04/09/2008 Pt states he has allergy, but can't recall reaction. Terazosin UNKNOWN 04/09/2008 Allergy recorded in SMS: Valium~Reactions: STOPS BREATHING Diazepam ANAPHYLAXIS, High 07/15/2005 SEE COMMENTS Medications End Date Status Medication Sig Dispensed Refills Start Date Active aspirin 81 mg chew tablet Take 1 Tab by 0 mouth Every Morning. Active zolpidem (AMBIEN) 10 mg Take 1 Tab by 0 tablet mouth At Bedtime Daily. Active bethanechol (URECHOLINE) Take 1 Tab by 0 25 mg tablet mouth Four Times Daily. Active clopidogrel (PLAVIX) 75 Take 1 Tab by 0 mg Tab mouth Every Morning. Active tamsulosin (FLOMAX) 0.4 Take 1 Cap by 0 mg capsule mouth daily with dinner. Active fluoxetine (PROZAC) 20 mg Take 1 Tab by 0 tablet mouth daily. Active loratadine (CLARITIN) 10 Take 1 Tab by 0 mg tablet mouth Every Morning. Active vitamins, multiple Cap Take 1 Cap by 0 mouth Daily. Active simvastatin (ZOCOR) 80 mg Take 40 mg by 0 tablet mouth at bedtime daily. Active fenofibrate Take 1 Tab by 0 nanocrystallized (TRICOR) mouth Daily. 145 mg tablet Active ezetimibe (ZETIA) 10 mg Take 1 Tab by 0 tablet mouth At Bedtime Daily. Active ramipril (ALTACE) 10 mg Take 1 Cap by 0 capsule mouth Daily. Active NITROQUICK 0.4 mg tablet Take 1 Tab by 0 mouth Every 5 Min as needed for Chest Pain. Active albuterol (PROVENTIL; Inhale 2 0 VENTOLIN) 90 Puffs by mcg/Actuation inhaler mouth As Needed. Active timolol (BETIMOL) 0.5 % Apply 1 Drop 0 ophthalmic solution to both eyes Twice Daily. use in affected eye(s) Active isosorbide mononitrate SR Take 60 mg by 0 (IMDUR) 60 mg tablet mouth Twice Daily. Active OLANZapine (ZYPREXA) 2.5 Take 2.5 mg 0 mg tablet by mouth at bedtime daily. Active Magnesium 250 mg Tab Take 1 Tab by 0 mouth three times daily. Active pioglitazone (ACTOS) 30 Take 30 mg by 0 mg tablet mouth every morning. Active phenytoin SR (DILANTIN) Take 100 mg 0 100 mg capsule by mouth at bedtime daily. Active esomeprazole DR(+) Take 40 mg by 0 (NEXIUM) 40 mg capsule mouth every morning. Active LORazepam (ATIVAN) 1 mg Take 1 mg by 0 tablet mouth every morning. Active naproxen (NAPROSYN) 250 Take 250 mg 0 mg tablet by mouth every morning. Active fluticasone (FLOVENT HFA) Inhale 1 Puff 0 110 mcg/actuation inhaler by mouth twice daily. 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 Santizo -- pending. L ast Assessment & Plan: (L) Ureteroscopy w/ Laser Lithotrips y -- 07/14/2013; Dr. Santizo Possible risks & complications of valero rgery including but not limited to bleeding, infection, allergic reactions , heart and blood pressure problems, ureteral injury, inability to fragment stone, residual stone fragments, need for further procedures, stent irri tation, injury to contiguous structures, and anesthesia complication s including, but not limited to deep venous thrombosis, heart attack, stroke , pulmonary embolism, respiratory arrest, and . Pt demonstrates an understanding & wishes to proceed. Surgical consent signed in clinic to day. Hold ASA, anticoagulants, blood thin ners, NSAIDs, fish oil, & herbal supplements, etc. x 1 wk prior to surge ry, unless otherwise directed. Pre-op abx, Levaquin 500 mg IV, on-c all to OR day of surgery. Labs: reviewed in [facility] EMR. Imaging: [facility] P[facility]. Consults: Cardiology: Walter Oconnor MD ([place], [place]) -- Scanned to Cardiology Referral in EMR. Pulmonary: -- pending All questions answered to his satisf action. Family History Medical History Relation Name Comments Cancer Brother Diabetes Mother Relation Name Status Comments Brother Mother Social History Date Tobacco Use Types Packs/Day Years Used Quit: 03/23/1994 Former Smoker Cigarettes 2 30 Smokeless Tobacco: Never Used Drinks/Week oz/Week Comments Alcohol Use No Sex Assigned at Date Recorded Not on file Industry Job Start Date Occupation Not on file Not on file Not on file Travel End Travel History Travel Start No recent travel history available. Last Filed Vital Signs Reading Time Taken Comments Vital Sign 134/76 07/31/2013 2:04 PM CDT Blood Pressure 70 07/31/2013 2:04 PM CDT Pulse 36.9 C (98.4 F) 07/13/2013 2:30 PM CDT Temperature - - Respiratory Rate 95% 07/13/2013 2:30 PM CDT Oxygen Saturation - - Inhaled Oxygen Concentration 88 kg (194 lb) 04/07/2016 1:25 PM CDT Weight 167.6 cm (5' 6") 04/07/2016 1:25 PM CDT Height 31.31 04/07/2016 1:25 PM CDT Body Mass Index Plan of Treatment Health Maintenance Due Date Last Done Comments HEPATITIS C SCREENING 1950 MEDICARE ANNUAL WELLNESS 1950 VISIT DTAP/TDAP VACCINES (1 - 1960 Tdap) PHYSICAL (COMPREHENSIVE) 1967 EXAM COLORECTAL CANCER 1999 SCREENING SHINGLES RECOMBINANT 1999 VACCINE (1 of 2) ABDOMINAL AORTIC ANEURYSM 2014 SCREENING PNEUMONIA (PCV13/PPSV23) 2014 VACCINES (1 of 2 - PCV13) INFLUENZA VACCINE 06/08/2020 Results Not on filefrom Last 3 Months Insurance Type Payer Benefit Subscriber ID Effective Phone Address Plan / Dates Group Medicare MEDICARE MEDICARE xxxxxxxxxx 2000- PART A AND Present B Medicaid UHC MEDICAID [place] UHC xxxxxxxxxxx 2012- [facility] Present PLAN [phone] 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
--- OUTSIDE RECORDS SUMMARY | 2020-02-16 11:36 | XMS REPORT ---
Author Author Oliverio COREY Organization [facility] Address [address] [place] [address] Care Team Providers Care Dispatcher Clerk Name Role Phone LOUANN COREY Unavailable PROBLEMS Type Condition ICD9-CM Code COR37-WQ Code Onset Dates Condition S tatus SNOMED Code Problem Type 2 diabetes mellitus E11.9 Activ e 88177542 Problem Neurogenic bladder N31.9 Active 3 52007174 Problem Seizures R56.9 Active 75186925 Problem Hypertension I10 Active 5874025 3 Problem Bipolar disorder F31.9 Active 137 66171 Problem Hyperlipemia E78.5 Active 7404216 4 Problem Chronic obstructive airway disease J44.9 Active 38154590 Problem Coronary artery disease I25.10 Active 01515695 ALLERGIES Substance Reaction Event Type Date Status Penicillin G Potassium Unknown Drug Allergy Dec, Activ e Doxycycline Hyclate Unknown Drug Allergy Dec, Active Codeine-Guaifenesin Unknown Drug Allergy Dec, Active Terazosin HCl Unknown Drug Allergy Dec, Active Septra Unknown Drug Allergy Dec, Active Piperacillin Sod-Tazobactam So Unknown Drug Allergy Dec, Active Phenobarbital Sodium Unknown Drug Allergy Dec, Active Valium Unknown Drug Allergy Dec, Active ENCOUNTERS Encounter Location Date Diagnosis [facility] [address] [facility] [id number] [place] [address] Dec, [facility] [address] [place] [address] Dec, Itching L29.9 ; Bilious vomiting with na usea R11.14 ; Hypertension I10 ; Neurogenic bladder N31.9 ; Bipolar disorder F31.9 ; Hyperlipemia E78.5 ; Type 2 diabetes mellitus E11.9 and Coronary artery disease I25.10 IMMUNIZATIONS No Known Immunizations SOCIAL HISTORY Never Assessed REASON FOR VISIT F/U PLAN OF CARE Activity Details Follow Up 3 Months Reason:prn with fas ting labs VITAL SIGNS Height 5ft 2in in 2018-12-22 Weight 170lb lbs 2018-12-22 BMI 31.09 kg/m2 2018-12-22 Blood pressure systolic 136 mmHg 2018-12-22 Blood pressure diastolic 70 mmHg 2018-12-22 MEDICATIONS Medication Instructions Dosage Frequency Start Date End Date Duration S tatus Tricor 145 MG Orally Once a day 1 tablet with food 24h Active Zyprexa 2.5 MG Orally Once a day 1 tablet 24h Active Urecholine 25 MG Orally Three times a day 1 tablet after meals 8h 30 day(s) Active Zantac 150 MG Orally Once a day 1 tablet at bedtime 24h 30 day(s) Active Albuterol Sulfate HFA 108 (90 Base) MCG/ACT Inhalation every 6 hrs 2 puffs as needed 6h Active Restoril 7.5 MG Orally Once a day 1 capsule at bedtime as needed 24h Active Bagdad 5-325 MG Orally every 6 hrs 1 tablet as needed 6h Active Magnesium 250 MG Orally Once a day 1 tablet with a meal 24h 30 day(s) Active Nitrostat 0.4 MG as directed Act humberto Plavix 75 MG Orally Once a day 1 tablet 24h Active Zofran ODT Active Nicoderm CQ 21 MG/24HR Transdermal Once a day 1 patch to skin 24h 30 day(s) Active Isosorbide Mononitrate ER 60 MG Orally Once a day 1 tablet in the mor mariana 24h 30 day(s) Active Altace 5 MG Orally Once a day 1 capsule 24h Active Ondansetron 4 MG Orally every 4-6 hours as needed 1 table t on the tongue and allow to dissolve as needed Dec, 30 day(s) Active Trazodone HCl 50 MG Orally Once a day 1 tablet at bedtime as needed 24h Active Flovent HFA 110 MCG/ACT Inhalation Twice a day 1 puff 12h Active Multivitamin - as directed Activ e OxyContin 20 MG Orally every 12 hrs 1 tablet 12h Active Neurontin 300 MG Orally Once a day 1 capsule 24h 30 day(s) Active Zetia 10 MG Orally Once a day 1 tablet 24h A ctive Claritin 10 MG Orally Once a day 1 tablet 24h 30 day (s) Active Dilantin 100 MG Orally Three times a day 1 capsule 8h 30 day(s) Active Ativan 1 MG Orally Once a day 1 tablet at bedtime as needed 24h Active PredniSONE 10 MG Orally Once a day 1 tablet 24h 14 Dec, 2018 6 days Active Flomax 0.4 MG Orally Once a day 1 capsule 24h Active Zocor 40 MG Orally Once a day 1 tablet in the evening 24h 30 day(s) Active Prozac 20 MG Orally Once a day 1 capsule 24h 30 day( s) Active MiraLax - as directed Active Actos 30 MG Orally Once a day 1 tablet 24h A ctive RESULTS No Results PROCEDURES Procedure Date Ordered Result Body Site [facility] VISIT NEW PATIENT Dec 22, 2018 INSTRUCTIONS MEDICATIONS ADMINISTERED No Known Medications MEDICAL (GENERAL) HISTORY Type Description Date Medical History Hypertension Medical History Seizures Medical History Neurogenic bladder Medical History Bipolar disorder Medical History Hyperlipemia Medical History Tubular adenoma Medical History Bradycardia Medical History Osteoarthritis Medical History Type 2 diabetes mellitus Medical History Coronary artery disease Medical History Chronic obstructive airway disease Medical History Depression (emotion) Surgical History Colonoscopy Surgical History Hernia Repair Surgical History Hip Repair Surgical History appendectomy Hospitalization History surgeries Hospitalization History COPD
--- OUTSIDE RECORDS SUMMARY | 2020-02-16 11:36 | XMS REPORT ---
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 Role Phone LOUANN COREY Unavailable PROBLEMS Type Condition ICD9-CM Code [id number] Code Onset Dates Condition S tatus SNOMED Code Problem Hypertrophy of prostate with out urinary obstruction and other lower urinary tract symptoms (LUTS) N40.0 Active 007402828 Problem Osteoarthritis of right knee M17.11 Oct, 201 2 Active 886218472 Problem Unspecified glaucoma(365.9) H40.9 Ac tive 84870767 Problem Cigarette nicotine dependence, uncomplicated F1 7.210 Aug, Active 248979769 Problem Acute cystitis without hematuria N30.00 Apr, Active 48553129 Problem Essential hypertension I10 Active 06932767 Problem Stable angina I20.8 Dec, Active 233 873539 Problem Hyperlipidemia E78.5 Nov, Active 55 574734 Problem Back pain M54.9 Oct, Active 4821323 05 Problem Major depression F32.9 Dec, Active 089801080 Problem Hyponatremia E87.1 Apr, Active 8962 7008 Problem CAD (coronary artery disease) I25.10 Apr, 13 Active 77953721 Problem COPD (chronic obstructive pulmonary disease) J4 4.9 Apr, Active 61549394 Problem Tubular adenoma D36.9 Jan, Active 1 7614215 Problem Right lateral epicondylitis M77.11 May, Active 307584242673568 Problem Renal stone N20.0 Oct, Active 89200 007 Problem Type 2 diabetes mellitus wit h other specified complication, without long-term current use of insulin E11.69 Active 59193033 Problem Umbilical hernia without mention of obstruction or hanna grene K42.9 May, Active 108823283 Problem Bipolar 1 disorder, depressed F31.9 Active 54071987 Problem Status post colonoscopy Z98.890 05 Jan, 2014 Act humberto 728531511616 Problem LFT elevation R94.5 06 Oct, 2012 Active 672 45961 Problem Seizure disorder G40.909 18 Apr, 2013 Active 621400339 Problem Carpal tunnel syndrome G56.00 23 Nov, 2012 Acti ve 25592112 Problem Gastroesophageal reflux disease without esophagitis K21.9 Active 760567211 Problem Neurogenic bladder N31.9 Active 3 69252164 ALLERGIES No Information ENCOUNTERS Encounter Location Date Diagnosis [address] [place] [address] 13 Feb, [address] [place] [address] Nov, [address] [place] [address] 15 Nov, 2019 Encounter for Medicare [facility] wellness exam Z00.00 ; Hypertension I10 ; COPD (chronic obstructive pulmonary disease) J44.9 ; Type 2 diabetes mellitus with other specified complication, without long-term current use of insulin E11.69 and Hyperlipemia E78.5 [facility] [address] [id number] [place] [address] 14 Nov, [address] [place] [address] 09 Nov, 2019 [facility] [address] [id number] [place] [address] 07 Nov, 2019 Gastroesophageal reflux disease without esophagitis K21.9 [address] [place] [address] 07 Nov, [address] [place] [address] Oct, High risk medications (not a nticoagulants) long-term use Z79.899 [address] [place] [address] Oct, [address] [place] [address] Oct, High risk medications (not a nticoagulants) long-term use Z79.899 [address] [place] [address] Oct, [address] [place] [address] Oct, Hypertension I10 ; Type 2 di abetes mellitus with other specified complication, without long-term current use of insulin E11.69 ; Bipolar 1 disorder, depressed F31.9 and Neurogenic bladder N31.9 [address] [place] [address] Oct, [address] [place] [address] Sep, High risk medications (not a nticoagulants) long-term use Z79.899 [address] [place] [address] Sep, [address] [place] [address] Sep, High risk medications (not a nticoagulants) long-term use Z79.899 [address] [place] [address] Aug, [address] [place] [address] Aug, Encounter for immunization Z 23 ; Impacted cerumen of both ears H61.23 and Type 2 diabetes mellitus with other specified complication, without long-term current use of insulin E11.69 [address] [place] [address] Aug, COPD (chronic obstructive pu lmonary disease) J44.9 [employer] [address] [place] [address] [id number] 10 Aug COPD (chronic obstructive pulmonary disease) J44.9 and Muscle cramps R25.2 [address] [address] [place] [address] Aug, [facility] [address] [place] [address] Aug, [facility] [address] [id number] [place] [address] Jul, [address] [place] [address] 16 Jul, 2019 High risk medications (not a nticoagulants) long-term use Z79.899 [facility] [address] [place] [address] Jul, [address] [place] [address] Jul, Hypertension I10 [address] [place] [address] Jul, High risk medications (not a nticoagulants) long-term use Z79.899 ; Coronary artery disease I25.10 ; Hyperlipemia E78.5 ; Bipolar 1 disorder, depressed F31.9 ; Bipolar disorder F31.9 and Type 2 diabetes mellitus E11.9 [facility] [address] [place] [address] Jul, [address] [place] [address] 11 Jul, 2019 Seizure disorder G40.909 ; H igh risk medications (not anticoagulants) long-term use Z79.899 ; Type 2 diabetes mellitus with other specified complication, without long-term current use of insulin E11.69 ; Bipolar 1 disorder, depressed F31.9 and Chronic obstructive airway disease J44.[address] [place] [address] Jul, [facility] [address] [id number] [place] [address] Jun, [address] [place] [address] Jun, Rash R21 ; Bipolar 1 disorde r, depressed F31.9 ; Type 2 diabetes mellitus E11.9 ; Hypertension I10 ; Lesion of left shoulder M75.92 ; Bipolar disorder F31.9 ; Coronary artery disease I25.10 and Hyperlipemia E78.5 [facility] [address] [place] [address] May, Bipolar 1 disorder, depresse d F31.9 [facility] [address] [place] [address] May, [facility] [address] [place] [address] May, Rash R21 [facility] [address] [place] [address] May, [facility] [address] [place] [address] Apr, [facility] [address] [place] [address] Apr, Bipolar 1 disorder, depresse d F31.9 ; Rash R21 and Type 2 diabetes mellitus with other specified complication, without long-term current use of insulin E11.69 [facility] [address] [place] [address] Apr, [facility] [address] [place] [address] Apr, [facility] [address] [place] [address] March, [facility] [address] [place] [address] March, [facility] [address] [place] [address] March, [facility] [address] [place] [address] March, Cellulitis of other specifie d site L03.818 and Lesion of left shoulder M75.92 [facility] [address] [id number] [place] [address] March, [facility] [address] [place] [address] Feb, [facility] [address] [place] [address] Feb, [facility] [address] [place] [address] Feb, [facility] [address] [place] [address] Feb, [facility] [address] [place] [address] Feb, [facility] [address] [place] [address] Feb, Open wound of right upper ar m, subsequent encounter S41.101D ; CAD (coronary artery disease) 414.00 ; Hypertension I10 ; COPD (chronic obstructive pulmonary disease) J44.9 and CAD (coronary artery disease) I25.10 [facility] [address] [place] [address] Jan, Abrasion of arm, right S40.8 11A [facility] [address] [place] [address] Jan, [facility] [address] [id number] [place] [address] Jan, Bilious vomiting with nausea R11.14 [facility] [address] [place] [address] Jan, [facility] [address] [place] [address] Dec, [facility] [address] [id number] [place] [address] Dec, [facility] [address] [id number] [place] [address] 15 Dec, 2018 [facility] [address] [place] [address] 14 Dec, 2018 Itching L29.9 ; Bilious vomi ting with nausea R11.14 ; Hypertension I10 ; Neurogenic bladder N31.9 ; Bipolar disorder F31.9 ; Hyperlipemia E78.5 ; Type 2 diabetes mellitus E11.9 and Coronary artery disease I25.10 [place] [address] [id number] [place] [address] 06 Dec, 2018 [address] [place] [address] 04 Dec, 2018 Gastroesophageal reflux dise ase without esophagitis K21.9 [place] [address] [address] 17 Nov, 2018 [place] [address] [address] Oct, [place] [address] [address] Oct, [place] [address] [address] Sep, [place] [address] [address] Aug, IMMUNIZATIONS No Known Immunizations SOCIAL HISTORY Never Assessed REASON FOR VISIT Controlled Med Refill 02/01 PLAN OF CARE VITAL SIGNS MEDICATIONS Medication Instructions Dosage Frequency Start Date End Date Duration S tatus Ativan 1 MG Orally 2 times a day 1 tablet 12h 28 day s Active RESULTS No Results PROCEDURES No Known procedures INSTRUCTIONS MEDICATIONS ADMINISTERED No Known Medications MEDICAL (GENERAL) HISTORY Type Description Date Medical History Hypertension Medical History Seizures Medical History Neurogenic bladder Medical History Bipolar disorder Medical History Hyperlipemia Medical History Tubular adenoma Medical History Bradycardia Medical History Osteoarthritis Medical History Type 2 diabetes mellitus Medical History Coronary artery disease Medical History Chronic obstructive airway disease Medical History Depression (emotion) Medical History Gastro-esophageal reflux disease without esophagitis Surgical History Colonoscopy Surgical History Hernia Repair Surgical History Hip Repair Surgical History appendectomy Surgical History Stent Placement 01/2019 Hospitalization History surgeries Hospitalization History COPD Hospitalization History Stent Placement 01/2019
--- OUTSIDE RECORDS SUMMARY | 2020-02-16 11:36 | XMS REPORT ---
Author Author Oliverio DAI Organization [facility] Address [address] [place] [address] Care Team Providers Care Genetic Physician Name Role Phone ABIMAEL DAI Unavailable PROBLEMS Type Condition ICD9-CM Code COF92-AI Code Onset Dates Condition S tatus SNOMED Code Problem Unspecified glaucoma(365.9) H40.9 Ac tive 65878287 Problem Hypertrophy of prostate with out urinary obstruction and other lower urinary tract symptoms (LUTS) N40.0 Active 733798816 Problem Status post colonoscopy Z98.890 05 Jan, 2014 Act humberto 258785001424 Problem Osteoarthritis of right knee M17.11 Oct, 201 2 Active 440565410 Problem Tubular adenoma D36.9 Jan, Active 1 5994235 Problem Cigarette nicotine dependence, uncomplicated F1 7.210 Aug, Active 799563860 Problem Back pain M54.9 Oct, Active 1231039 05 Problem Essential hypertension I10 Active 99896399 Problem Hyponatremia E87.1 Apr, Active 8962 7008 Problem Hyperlipidemia E78.5 Nov, Active 55 269467 Problem COPD (chronic obstructive pulmonary disease) J4 4.9 Apr, Active 54906941 Problem Major depression F32.9 Dec, Active 054465547 Problem Acute cystitis without hematuria N30.00 Apr, Active 28525609 Problem CAD (coronary artery disease) I25.10 18 Apr, 20 13 Active 22008010 Problem Right lateral epicondylitis M77.11 May, Active [id number] Problem Renal stone N20.0 Oct, Active 43367 007 Problem Seizure disorder G40.909 Apr, Active 721481049 Problem Bipolar 1 disorder, depressed F31.9 Active 10018035 Problem LFT elevation R94.5 Oct, Active 672 66148 Problem Hypomagnesemia E83.42 Active 64189 5004 Problem Umbilical hernia without mention of obstruction or hanna grene K42.9 May, Active 433797650 Problem Stable angina I20.8 Dec, Active 233 884345 Problem Carpal tunnel syndrome G56.00 Nov, Acti ve 05503051 Problem Gastroesophageal reflux disease without esophagitis K21.9 Active 357579730 Problem Neurogenic bladder N31.9 Active 3 47770596 Problem Type 2 diabetes mellitus wit h other specified complication, without long-term current use of insulin E11.69 Active 83769907 ALLERGIES Substance Reaction Event Type Date Status Penicillin G Potassium Unknown Drug Allergy Jan, Activ e Doxycycline Hyclate Unknown Drug Allergy Jan, Active Codeine-Guaifenesin Unknown Drug Allergy Jan, Active Terazosin HCl Unknown Drug Allergy Jan, Active Septra Unknown Drug Allergy Jan, Active Piperacillin Sod-Tazobactam So Unknown Drug Allergy Jan, Active Phenobarbital Sodium Unknown Drug Allergy Jan, Active Valium Unknown Drug Allergy Jan, Active ENCOUNTERS Encounter Location Date Diagnosis [address] [id number] [place] [address] Feb, [address] [id number] [place] [address] Feb, [facility] [address] [facility] [id number] [address] [place] [address] Feb, [facility] [address] [facility] [id number] [place] [address] Jan, [address] [id number] [address] Jan, High risk medications (not a nticoagulants) long-term use Z79.899 ; Hypomagnesemia E83.42 ; Seizure disorder G40.909 ; Frequency of urination R35.0 ; Neurogenic bladder N31.9 ; Type 2 diabetes mellitus with other specified complication, without long-term current use of insulin E11.69 ; Gastroesophageal reflux disease without esophagitis K21.9 ; Hypertension I10 ; COPD (chronic obstructive pulmonary disease) J44.9 ; Bipolar 1 disorder, depressed F31.9 ; CAD (coronary artery disease) I25.10 ; Back pain M54.9 ; Hyponatremia E87.1 ; Major depression F32.9 ; Hyperlipidemia E78.5 ; Hypertrophy of prostate without urinary obstruction and other lower urinary tract symptoms (LUTS) N40.0 and Bilious vomiting with nausea R11.[address] [id number] [address] Jan, Seizure disorder G40.[address] [id number] [address] Jan, [address] [id number][place] [address] Jan, Gastroesophageal reflux dise ase without esophagitis K21.[address] 340 [id number] [address] Jan, [address] [id number] [address] Dec, [address] [id number], [place] [address] Dec, [address] [id number] [address] Dec, [address] [id number], [place] [address] Dec, [address] [id number][place] [address] Dec, [facility] [address] [facility] [id number] [address] [place] [address] Dec, [address] [id number], [place] [address] Dec, [address] [id number][place] [address] Dec, Seizure disorder G40.909 and Hypomagnesemia E83.[address] [id number] [place] [address] 10 Dec, 2019 Neurogenic bladder N31.9 and Frequency of urination R35.0 [facility] [address] [id number] [address] 05 Dec, 2019 Cigarette nicotine dependenc e, uncomplicated F17.[address] [id number], [place] [address] 28 Nov, 2019 Gastroesophageal reflux dise ase without esophagitis K21.9 [facility] [address] [id number], [place] [address] 15 Nov, [address] [id number][place] [address] 15 Nov, 2019 Encounter for Medicare annua l wellness exam Z00.00 ; Hypertension I10 ; COPD (chronic obstructive pulmonary disease) J44.9 ; Type 2 diabetes mellitus with other specified complication, without long-term current use of insulin E11.69 and Hyperlipemia E78.5 [place] [address] [facility] [id number] [place] [address] 14 Nov, [address] [id number][place] [address] Nov, [place] [address] [facility] [id number] [address] [place] [address] 07 Nov, 2019 Gastroesophageal reflux dise ase without esophagitis K21.[address] [id number], [place] [address] Nov, [address] [id number][place] [address] Oct, High risk medications (not a nticoagulants) long-term use Z79.899 [facility] [address] [id number], [place] [address] Oct, [address] [id number] [address] Oct, High risk medications (not a nticoagulants) long-term use Z79.[address] [id number] [place] [address] Oct, [address] [id number] [place] [address] Oct, Hypertension I10 ; Type 2 di abetes mellitus with other specified complication, without long-term current use of insulin E11.69 ; Bipolar 1 disorder, depressed F31.9 and Neurogenic bladder N31.[address] [id number] [place] [address] Oct, [address] 340 [id number][place] [address] Sep, High risk medications (not a nticoagulants) long-term use Z79.[address] [id number][place] [address] Sep, [address] [id number] [place] [address] Sep, High risk medications (not a nticoagulants) long-term use Z79.[address] [id number] [place] [address] Aug, [address] [id number] [place] [address] Aug, Encounter for immunization Z 23 ; Impacted cerumen of both ears H61.23 and Type 2 diabetes mellitus with other specified complication, without long-term current use of insulin E11.[address] 340 [id number] [place] [address] 15 Aug, 2019 COPD (chronic obstructive pu lmonary disease) J44.[address] [facility] [address] [place] [address] [id number] 10 Aug COPD (chronic obstructive pulmonary disease) J44.9 and Muscle cramps R25.2 [facility] [address] [id number] [place] [address] Aug, [address] [id number] [place] [address] Aug, [facility] [address] [facility] [id number] 100[place] [address] Jul, [address] [id number] [place] [address] 16 Jul, 2019 High risk medications (not a nticoagulants) long-term use Z79.[address] [id number], [place] [address] 13 Jul, [address] [id number], [place] [address] 13 Jul, 2019 Hypertension I10 [address] 340 [id number], [place] [address] Jul, High risk medications (not a nticoagulants) long-term use Z79.899 ; Coronary artery disease I25.10 ; Hyperlipemia E78.5 ; Bipolar 1 disorder, depressed F31.9 ; Bipolar disorder F31.9 and Type 2 diabetes mellitus E11.[address] [id number] [place] [address] 12 Jul, [address] [id number], [place] [address] Jul, Seizure disorder G40.909 ; H igh risk medications (not anticoagulants) long-term use Z79.899 ; Type 2 diabetes mellitus with other specified complication, without long-term current use of insulin E11.69 ; Bipolar 1 disorder, depressed F31.9 and Chronic obstructive airway disease J44.[address] [id number], [place] [address] 05 Jul, 2019 [facility] [address] [facility] [id number] 100[place] [address] Jun, [address] [id number] [place] [address] Jun, Rash R21 ; Bipolar 1 disorde r, depressed F31.9 ; Type 2 diabetes mellitus E11.9 ; Hypertension I10 ; Lesion of left shoulder M75.92 ; Bipolar disorder F31.9 ; Coronary artery disease I25.10 and Hyperlipemia E78.5 [facility] [address] [id number] [place] [address] May, Bipolar 1 disorder, depresse d F31.9 [facility] [address] [id number] [place] [address] May, [facility] [address] [id number] [place] [address] May, Rash R21 [facility] [address] [id number] [place] [address] May, [facility] [address] [id number] [place] [address] Apr, [facility] [address] [id number] [place] [address] Apr, Bipolar 1 disorder, depresse d F31.9 ; Rash R21 and Type 2 diabetes mellitus with other specified complication, without long-term current use of insulin E11.69 [facility] [address] [id number] [place] [address] Apr, [facility] [address] [id number] [place] [address] Apr, [facility] [address] [id number] [place] [address] March, [facility] [address] [id number] [place] [address] March, [facility] [address] [id number] [place] [address] March, [facility] [address] [id number] [address] March, Cellulitis of other specifie d site L03.818 and Lesion of left shoulder M75.92 [facility] [address] [facility] [id number] [address] [place] [address] March, [facility] [address] [id number] [place] [address] Feb, [facility] [address] [id number], [place] [address] Feb, [facility] [address] [id number], [place] [address] Feb, [facility] [address] [id number], [place] [address] Feb, [facility] [address] [id number] [place] [address] Feb, [facility] [address] [id number], [place] [address] Feb, Open wound of right upper ar m, subsequent encounter S41.101D ; CAD (coronary artery disease) 414.00 ; Hypertension I10 ; COPD (chronic obstructive pulmonary disease) J44.9 and CAD (coronary artery disease) I25.10 [facility] [address] [id number] [place] [address] Jan, Abrasion of arm, right S40.8 11A [facility] [address] [id number], [place] [address] Jan, [facility] [address] [facility] [id number] [address] [place] [address] Jan, Bilious vomiting with nausea R11.14 [facility] [address] [id number], [place] [address] Jan, [facility] [address] [id number] [address] Dec, [place] [address] [facility] [id number] [address] [place] [address] 22 Dec, 2018 [place] [address] [facility] [id number] [address] [place] [address] 15 Dec, [address] [id number], [place] [address] 14 Dec, 2018 Itching L29.9 ; Bilious vomi ting with nausea R11.14 ; Hypertension I10 ; Neurogenic bladder N31.9 ; Bipolar disorder F31.9 ; Hyperlipemia E78.5 ; Type 2 diabetes mellitus E11.9 and Coronary artery disease I25.10 [place] [address] [facility] [id number] [address] [place] [address] 06 Dec, [address] [id number], [place] [address] 04 Dec, 2018 Gastroesophageal reflux dise ase without esophagitis K21.9 [place] [address] [facility] [id number] [address] [place] [address] Nov, [place] [address] [facility] [id number] [address] [place] [address] Oct, [place] [address] [facility] [id number] [address] [place] [address] Oct, [place] [address] [facility] [id number] [address] [place] [address] Sep, [place] [address] [facility] [id number] [address] [place] [address] Aug, IMMUNIZATIONS No Known Immunizations SOCIAL HISTORY Never Assessed REASON FOR VISIT place on right elbow that won't stop bleeding. x1 week..alondra/ahmet, family doing dsg changes at home PLAN OF CARE Activity Details Follow Up if not improving with PCP or reg follow up Reason: VITAL SIGNS Height 62 in 2019-02-05 Weight 170 lbs 2019-02-05 Temperature 98.7 degrees Fahrenheit 2019-02-05 Heart Rate 90 bpm 2019-02-05 Respiratory Rate 20 2019-02-05 Oximetry 99 % 2019-02-05 BMI 31.09 kg/m2 2019-02-05 Blood pressure systolic 130 mmHg 2019-02-05 Blood pressure diastolic 70 mmHg 2019-02-05 MEDICATIONS Medication Instructions Dosage Frequency Start Date End Date Duration S kamille Trazodone HCl 50 MG Orally Once a day 1 tablet at bedtime as needed 24h Active Tricor 145 MG Orally Once a day 1 tablet with food 24h Active Dilantin 100 MG Orally Three times a day 1 capsule 8h 30 day(s) Active Zocor 40 MG Orally Once a day 1 tablet in the evening 24h 30 day(s) Active Albuterol Sulfate HFA 108 (90 Base) MCG/ACT Inhalation every 6 hrs 2 puffs as needed 6h Active PredniSONE 10 MG Orally Once a day 1 tablet 24h 14 Dec, 2018 6 days Active Neurontin 300 MG Orally Once a day 1 capsule 24h 30 day(s) Active Nicoderm CQ 21 MG/24HR Transdermal Once a day 1 patch to skin 24h 30 day(s) Active Isosorbide Mononitrate ER 60 MG Orally Once a day 1 tablet in the mor mariana 24h 30 day(s) Active Altace 5 MG Orally Once a day 1 capsule 24h Active Zofran ODT Active Zantac 150 MG Orally Once a day 1 tablet at bedtime 24h 30 day(s) Active Flovent HFA 110 MCG/ACT Inhalation Twice a day 1 puff 12h Active Plavix 75 MG Orally Once a day 1 tablet 24h Active Ativan 1 MG Orally 2 times a day 1 tablet 12h 28 day s Active Urecholine 25 MG Orally Three times a day 1 tablet after meals 8h 30 day(s) Active OxyContin 20 MG Orally 2 times a day 1 tablet 12h 27 Dec, 2018 28 days Active Claritin 10 MG Orally Once a day 1 tablet 24h 30 day (s) Active Magnesium 250 MG Orally Once a day 1 tablet with a meal 24h 30 day(s) Active [place] 5-325 MG Orally every 6 hrs 1 tablet as needed 6h Active Flomax 0.4 MG Orally Once a day 1 capsule 24h Active Ondansetron 4 MG Orally every 4-6 hours as needed 1 table t on the tongue and allow to dissolve as needed Dec, 30 day(s) Active Nitrostat 0.4 MG as directed Act humberto Actos 30 MG Orally Once a day 1 tablet 24h A ctive Restoril 7.5 MG Orally Once a day 1 capsule at bedtime as needed 24h Active Zyprexa 2.5 MG Orally Once a day 1 tablet 24h Active Prozac 20 MG Orally Once a day 1 capsule 24h 30 day( s) Active Multivitamin - as directed Activ e MiraLax - as directed Active Zetia 10 MG Orally Once a day 1 tablet 24h A ctive RESULTS No Results PROCEDURES No Known procedures [...]
--- OUTSIDE RECORDS SUMMARY | 2020-02-16 11:38 | XMS REPORT | Continuity of Care Document ---
Author Organization Unknown Address Unknown Phone Unavailable Allergies Active Description Code Type Severity Reaction Onset Reported/Identified Relationship to Patient Clinical Status Yes codeine [id number] Drug Allergy Unknown N/A 03/07/2017 Yes diazepam [id number] Drug Allergy Unknown N/A 03/07/2017 Yes doxycycline [id number] Drug Aller gy Unknown RASH 03/07/2017 Yes phenobarbital [id number] Erich g Allergy Unknown N/A 03/07/2017 Yes piperacillin [id number] Drug Allergy Unknown RASH 03/07/2017 Yes terazosin [id number] Drug Allergy Unknown N/A 03/07/2017 Yes piperacillin [id number] Drug Allergy Unknown RASH, PT HAS RE 03/08/2017 Yes codeine [id number] Drug Allergy Mild N/A 03/09/2017 Yes Penicillins [id number] Drug Aller gy Unknown N/A 04/22/2017 Yes sulfamethoxazole [id number] Drug Allergy Unknown N/A 04/22/2017 Medications There is no data. Problems Date Dx Coded Attending Type Code Diagnosis Diagnosed By 09/22/2012 Ot 250.00 MADHU B BRANDI WO COMPL, TYPE II OR UNSPEC TY 09/22/2012 Ot 272.4 HYPE RLIPIDEMIA NEC/NOS 09/22/2012 Ot 296.80 BIP OLAR DISORDER, UNSPECIFIED 09/22/2012 Ot 397.0 TRIC USPID VALVE DISEASE 09/22/2012 Ot 401.9 HYPE RTENSION NOS 09/22/2012 Ot 414.00 COR ON ATHEROSCLER NOS TYPE VESSEL, NATIV 09/22/2012 Ot 424.0 MITR AL VALVE DISORDER 09/22/2012 Ot 592.0 CALC ULUS OF KIDNEY 09/22/2012 Ot 600.00 HYP ERTROPHY (BENIGN) OF PROSTATE W/O URI 09/22/2012 Ot 780.39 OTH ER CONVULSIONS 09/22/[address] PAIN NOS 09/22/2012 Ot V45.81 AOR TOCORONARY BYPASS 09/22/2012 Ot V58.63 OMAR G- TERM(CURRENT)USE OF ANTIPLATELET/AN 09/22/2012 Ot V58.66 OMAR G-TERM (CURRENT) USE OF ASPIRIN 09/22/2012 Ot V58.69 OT MED,LT,CURRENT USE 03/09/2017 SARY MCCRARY DO, Ot E11.9 TYPE 2 DIABETES MELLITUS WITHOUT COMPLIC 03/09/2017 SARY MCCRARY DO Ot E78.00 PURE HYPERCHOLESTEROLEMIA, UNSPECIFIED 03/09/2017 SARY MCCRARY DO Ot F17.210 NICOTINE DEPENDENCE, CIGARETTES, UNCOMPL 03/09/2017 SARY MCCRARY DO Ot F31.9 BIPOLAR DISORDER, UNSPECIFIED 03/09/2017 SARY MCCRARY DO Ot F41.9 ANXIETY DISORDER, UNSPECIFIED 03/09/2017 SARY MCCRARY DO, Ot G40.909 EPILEPSY, UNSP, NOT INTRACTABLE, WITHOUT 03/09/2017 SARY MCCRARY DO, Ot G43.909 MIGRAINE, UNSP, NOT INTRACTABLE, WITHOUT 03/09/2017 SARY MCCRARY DO Ot G51.0 MENA'S PALSY 03/09/2017 SARY MCCRARY DO Ot H40.9 UNSPECIFIED GLAUCOMA 03/09/2017 SARY MCCRARY DO Ot I 10 ESSENTIAL (PRIMARY) HYPERTENSION 03/09/2017 SARY MCCRARY DO Ot I25.10 ATHSCL HEART DISEASE OF [place] CORONARY 03/09/2017 SARY MCCRARY DO, Ot J44.9 CHRONIC OBSTRUCTIVE PULMONARY DISEASE, U 03/09/2017 SARY MCCRARY DO Ot K21.9 GASTRO-ESOPHAGEAL REFLUX DISEASE WITHOUT 03/09/2017 SARY MCCRARY DO Ot M19.91 PRIMARY OSTEOARTHRITIS, UNSPECIFIED SITE 03/09/2017 SARY MCCRARY DO, Ot M25.512 PAIN IN LEFT SHOULDER 03/09/2017 SARY MCCRARY DO Ot N52.9 MALE ERECTILE DYSFUNCTION, UNSPECIFIED 03/09/2017 SARY MCCRARY DO Ot R35.0 FREQUENCY OF MICTURITION 03/09/2017 SARY MCCRARY DO Ot S72.142A DISPLACED INTERTROCHANTERIC FRACTURE OF 03/09/2017 SARY MCCRARY DO Ot W18.39XA OTHER FALL ON SAME LEVEL, INITIAL ENCOUN 03/09/2017 SARY MCCRARY DO Ot Y92.[address] IN [facility] NON-INSTITUTIONAL RESI 03/09/2017 SARY MCCRARY DO Ot Z87.11 PERSONAL HISTORY OF PEPTIC ULCER DISEASE 03/09/2017 SARY MCCRARY DO Ot Z95.1 PRESENCE OF AORTOCORONARY BYPASS GRAFT 03/09/2017 SARY MCCRARY DO Ot Z95.5 PRESENCE OF CORONARY ANGIOPLASTY IMPLANT 03/09/2017 SARY MCCRARY DO Ot Z96.0 PRESENCE OF UROGENITAL IMPLANTS 03/10/2017 SARY MCCRARY DO Ot E11.9 TYPE 2 DIABETES MELLITUS WITHOUT COMPLIC 03/10/2017 SARY MCCRARY DO Ot E78.00 PURE HYPERCHOLESTEROLEMIA, UNSPECIFIED 03/10/2017 HERMANN MCMILLAN, SARY Thrasher Ot F17.210 NICOTINE DEPENDENCE, CIGARETTES, UNCOMPL 03/10/2017 SARY MCCRARY DO Ot F31.9 BIPOLAR DISORDER, UNSPECIFIED 03/10/2017 HERMANN SARY MCMILLAN Ot F41.9 ANXIETY DISORDER, UNSPECIFIED 03/10/2017 SARY MCCRARY DO Ot G40.909 EPILEPSY, UNSP, NOT INTRACTABLE, WITHOUT 03/10/2017 HERMANN DOSARY Ot G43.909 MIGRAINE, UNSP, NOT INTRACTABLE, WITHOUT 03/10/2017 HERMANN SARY MCMILLAN Ot G51.0 MENA'S PALSY 03/10/2017 SARY MCCRARY DO Ot H40.9 UNSPECIFIED GLAUCOMA 03/10/2017 SARY MCCRARY DO Ot I 10 ESSENTIAL (PRIMARY) HYPERTENSION 03/10/2017 ASRY MCCRARY DO Ot I25.10 ATHSCL HEART DISEASE OF [place] CORONARY 03/10/2017 SARY MCCRARY DO Ot J44.9 CHRONIC OBSTRUCTIVE PULMONARY DISEASE, U 03/10/2017 SARY MCCRARY DO Ot K21.9 GASTRO-ESOPHAGEAL REFLUX DISEASE WITHOUT 03/10/2017 HERMANNSARY JEFFREY DO Ot M19.91 PRIMARY OSTEOARTHRITIS, UNSPECIFIED SITE 03/10/2017 SARY MCCRARY DO Ot M25.512 PAIN IN LEFT SHOULDER 03/10/2017 SARY MCCRARY DO Ot N52.9 MALE ERECTILE DYSFUNCTION, UNSPECIFIED 03/10/2017 SARY MCCRARY DO Ot R35.0 FREQUENCY OF MICTURITION 03/10/2017 SARY MCCRARY DO Ot S72.142A DISPLACED INTERTROCHANTERIC FRACTURE OF 03/10/2017 SARY MCCRARY DO Ot W18.39XA OTHER FALL ON SAME LEVEL, INITIAL ENCOUN 03/10/2017 HERMANNSARY JEFFREY DO Ot Y92.[address] IN OT NON-INSTITUTIONAL RESI 03/10/2017 SARY MCCRARY DO, Ot Z87.11 PERSONAL HISTORY OF PEPTIC ULCER DISEASE 03/10/2017 SARY MCCRARY DO Ot Z95.1 PRESENCE OF AORTOCORONARY BYPASS GRAFT 03/10/2017 SARY MCCRARY DO Ot Z95.5 PRESENCE OF CORONARY ANGIOPLASTY IMPLANT 03/10/2017 SARY MCCRARY DO Ot Z96.0 PRESENCE OF UROGENITAL IMPLANTS 03/10/2017 SARY MCCRARY DO Ot E11.9 TYPE 2 DIABETES MELLITUS WITHOUT COMPLIC 03/10/2017 SARY MCCRARY DO Ot E78.00 PURE HYPERCHOLESTEROLEMIA, UNSPECIFIED 03/10/2017 SARY MCCRARY DO Ot F17.210 NICOTINE DEPENDENCE, CIGARETTES, UNCOMPL 03/10/2017 SARY MCCRARY DO Ot F31.9 BIPOLAR DISORDER, UNSPECIFIED 03/10/2017 SARY MCCRARY DO Ot F41.9 ANXIETY DISORDER, UNSPECIFIED 03/10/2017 SARY MCCRARY DO Ot G40.909 EPILEPSY, UNSP, NOT INTRACTABLE, WITHOUT 03/10/2017 HERMANN SARY MCMILLAN Ot G43.909 MIGRAINE, UNSP, NOT INTRACTABLE, WITHOUT 03/10/2017 SARY MCCRARY DO Ot G51.0 MENA'S PALSY 03/10/2017 SARY MCCRARY DO Ot H40.9 UNSPECIFIED GLAUCOMA 03/10/2017 SARY MCCRARY DO Ot I 10 ESSENTIAL (PRIMARY) HYPERTENSION 03/10/2017 SARY MCCRARY DO Ot I25.10 ATHSCL HEART DISEASE OF [place] CORONARY 03/10/2017 SARY MCCRARY DO Ot J44.9 CHRONIC OBSTRUCTIVE PULMONARY DISEASE, U 03/10/2017 SARY MCCRARY DO Ot K21.9 GASTRO-ESOPHAGEAL REFLUX DISEASE WITHOUT 03/10/2017 SARY MCCRARY DO Ot M19.91 PRIMARY OSTEOARTHRITIS, UNSPECIFIED SITE 03/10/2017 SARY MCCRARY DO Ot M25.512 PAIN IN LEFT SHOULDER 03/10/2017 SARY MCCRARY DO Ot N52.9 MALE ERECTILE DYSFUNCTION, UNSPECIFIED 03/10/2017 SARY MCCRARY DO Ot R35.0 FREQUENCY OF MICTURITION 03/10/2017 SARY MCCRARY DO Ot S72.142A DISPLACED INTERTROCHANTERIC FRACTURE OF 03/10/2017 SARY MCCRARY DO Ot W18.39XA OTHER FALL ON SAME LEVEL, INITIAL ENCOUN 03/10/2017 SARY MCCRARY DO, Ot Y92.[address] IN OT NON-INSTITUTIONAL RESI 03/10/2017 SARY MCCRARY DO, Ot Z87.11 PERSONAL HISTORY OF PEPTIC ULCER DISEASE 03/10/2017 SARY MCCRARY DO Ot Z95.1 PRESENCE OF AORTOCORONARY BYPASS GRAFT 03/10/2017 SARY MCCRARY DO Ot Z95.5 PRESENCE OF CORONARY ANGIOPLASTY IMPLANT 03/10/2017 SARY MCCRARY DO, Ot Z96.0 PRESENCE OF UROGENITAL IMPLANTS 03/11/2017 SARY MCCRARY DO, Ot D64.9 ANEMIA, UNSPECIFIED 03/11/2017 SARY MCCRARY DO Ot E11.9 TYPE 2 DIABETES MELLITUS WITHOUT COMPLIC 03/11/2017 SARY MCCRARY DO Ot E78.00 PURE HYPERCHOLESTEROLEMIA, UNSPECIFIED 03/11/2017 SARY MCCRARY DO Ot E87.1 HYPO-OSMOLALITY AND HYPONATREMIA 03/11/2017 SARY MCCRARY DO Ot F17.210 NICOTINE DEPENDENCE, CIGARETTES, UNCOMPL 03/11/2017 SARY MCCRARY DO Ot F31.9 BIPOLAR DISORDER, UNSPECIFIED 03/11/2017 SARY MCCRARY DO Ot F41.9 ANXIETY DISORDER, UNSPECIFIED 03/11/2017 SARY MCCRARY DO Ot G40.909 EPILEPSY, UNSP, NOT INTRACTABLE, WITHOUT 03/11/2017 HERMANN SARY MCMILLAN Ot G43.909 MIGRAINE, UNSP, NOT INTRACTABLE, WITHOUT 03/11/2017 HERMANN SARY MCMILLAN Ot G51.0 MENA'S PALSY 03/11/2017 SARY MCCRARY DO Ot H40.9 UNSPECIFIED GLAUCOMA 03/11/2017 SARY MCCRARY DO Ot I 10 ESSENTIAL (PRIMARY) HYPERTENSION 03/11/2017 SARY MCCRARY DO Ot I25.10 ATHSCL HEART DISEASE OF [place] CORONARY 03/11/2017 SARY MCCRARY DO Ot J44.9 CHRONIC OBSTRUCTIVE PULMONARY DISEASE, U 03/11/2017 SARY MCCRARY DO Ot K21.9 GASTRO-ESOPHAGEAL REFLUX DISEASE WITHOUT 03/11/2017 SARY MCCRARY DO Ot K59.00 CONSTIPATION, UNSPECIFIED 03/11/2017 SARY MCCRARY DO Ot M19.91 PRIMARY OSTEOARTHRITIS, UNSPECIFIED SITE 03/11/2017 SARY MCCRARY DO Ot M25.512 PAIN IN LEFT SHOULDER 03/11/2017 SARY MCCRARY DO Ot N40.1 BENIGN PROSTATIC HYPERPLASIA WITH LOWER 03/11/2017 SARY MCCRARY DO Ot N52.9 MALE ERECTILE DYSFUNCTION, UNSPECIFIED 03/11/2017 SARY MCCRARY DO Ot R33.8 OTHER RETENTION OF URINE 03/11/2017 SARY MCCRARY DO Ot R35.0 FREQUENCY OF MICTURITION 03/11/2017 SARY MCCRARY DO Ot S72.142A DISPLACED INTERTROCHANTERIC FRACTURE OF 03/11/2017 SARY MCCRARY DO Ot W18.39XA OTHER FALL ON SAME LEVEL, INITIAL ENCOUN 03/11/2017 SARY MCCRARY DO Ot Y92.[address] IN OT NON-INSTITUTIONAL RESI 03/11/2017 HERMANN MCMILLAN SARY Thrasher Ot Y99.8 OTHER EXTERNAL CAUSE STATUS 03/11/2017 SARY MCCRARY DO Ot Z87.11 PERSONAL HISTORY OF PEPTIC ULCER DISEASE 03/11/2017 HERMANN MCMILLAN SARY Thrasher Ot Z95.1 PRESENCE OF AORTOCORONARY BYPASS GRAFT 03/11/2017 HERMANN MCMILLAN SARY Thrasher Ot Z95.5 PRESENCE OF CORONARY ANGIOPLASTY IMPLANT 03/11/2017 HERMANN MCMILLAN SARY Thrasher Ot Z96.0 PRESENCE OF UROGENITAL IMPLANTS 03/24/2017 RON KINNEY MD Ot E11.9 TYPE 2 DIABETES MELLITUS WITHOUT COMPLIC 03/24/2017 RON KINNEY MD Ot F01.5 0 VASCULAR DEMENTIA WITHOUT BEHAVIORAL DIS 03/24/2017 RON KINNEY MD, Ot F17.2 10 NICOTINE DEPENDENCE, CIGARETTES, UNCOMPL 03/24/2017 RON KINNEY MD Ot G40.9 09 EPILEPSY, UNSP, NOT INTRACTABLE, WITHOUT 03/24/2017 RON KINNEY MD Ot I10 ESSENTIAL (PRIMARY) HYPERTENSION 03/24/2017 RON KINNEY MD, Ot I25.1 0 ATHSCL HEART DISEASE OF [place] CORONARY 03/24/2017 RON KINNEY MD, Ot J44.9 CHRONIC OBSTRUCTIVE PULMONARY DISEASE, U 03/24/2017 KINNEY MD, RON E Ot N31.9 NEUROMUSCULAR DYSFUNCTION OF [place], UN 03/24/2017 RON KINNEY MD Ot N40.1 BENIGN PROSTATIC HYPERPLASIA WITH LOWER 03/24/2017 RON KINNEY MD Ot R33.9 RETENTION OF URINE, UNSPECIFIED 03/24/2017 RON KINNEY MD Ot S72.142D DISPL INTERTROCH FX L FEMUR, SUBS FOR CL 03/24/2017 RON KINNEY MD Ot Z95.1 PRESENCE OF AORTOCORONARY BYPASS GRAFT 03/24/2017 RON KINNEY MD Ot Z95.5 PRESENCE OF CORONARY ANGIOPLASTY IMPLANT 04/07/2017 Ot 592.0 CALC ULUS OF KIDNEY 04/07/2017 Ot V72.84 EXA M PRE- OPERATIVE NOS 04/07/2017 Ot V74.8 SCRE EN-BACTERIAL DIS NEC 04/07/2017 Ot 250.00 MADHU B BRANDI WO COMPL, TYPE II OR UNSPEC TY 04/07/2017 Ot 354.0 CARP AL TUNNEL SYNDROME 04/07/2017 Ot 354.2 ULNA R NERVE LESION 04/07/2017 Ot 401.9 HYPE RTENSION NOS 04/07/2017 Ot 727.03 TRI GGER FINGER 04/07/2017 Ot 780.39 OTH ER CONVULSIONS 04/07/2017 Ot V45.81 AOR TOCORONARY BYPASS 04/07/2017 Ot V58.69 OTH MED,LT,CURRENT USE 04/07/2017 Ot 354.0 CARP AL TUNNEL SYNDROME 04/07/2017 Ot 727.03 TRI GGER FINGER 04/07/2017 Ot V72.84 EXA M PRE- OPERATIVE NOS 04/07/2017 Ot V74.8 SCRE EN-BACTERIAL DIS NEC 04/23/2017 Ot 592.0 CALC ULUS OF KIDNEY 04/23/2017 Ot V72.84 EXA M PRE- OPERATIVE NOS 04/23/2017 Ot V74.8 SCRE EN-BACTERIAL DIS NEC 04/23/2017 Ot 250.00 MADHU B BRANDI WO COMPL, TYPE II OR UNSPEC TY 04/23/2017 Ot 354.0 CARP AL TUNNEL SYNDROME 04/23/2017 Ot 354.2 ULNA R NERVE LESION 04/23/2017 Ot 401.9 HYPE RTENSION NOS 04/23/2017 Ot 727.03 TRI GGER FINGER 04/23/2017 Ot 780.39 OTH ER CONVULSIONS 04/23/2017 Ot V45.81 AOR TOCORONARY BYPASS 04/23/2017 Ot V58.69 OTH MED,LT,CURRENT USE 04/23/2017 Ot 354.0 CARP AL TUNNEL SYNDROME 04/23/2017 Ot 727.03 TRI GGER FINGER 04/23/2017 Ot V72.84 EXA M PRE- OPERATIVE NOS 04/23/2017 Ot V74.8 SCRE EN-BACTERIAL DIS NEC 04/26/2017 CARLOS ESCOTO DO Ot D47.3 ESSENTIAL (HEMORRHAGIC) THROMBOCYTHEMIA 04/26/2017 MATT ESCOTO DOI Ot E11.9 TYPE 2 DIABETES MELLITUS WITHOUT COMPLIC 04/26/2017 JEVON MCMILLAN CARLOS Ot E22.2 SYNDROME OF INAPPROPRIATE SECRETION OF A 04/26/2017 MATT ESCOTO DOI Ot E78.00 PURE HYPERCHOLESTEROLEMIA, UNSPECIFIED 04/26/2017 JEVON MCMILLAN CARLOS Ot F17.21 0 NICOTINE DEPENDENCE, CIGARETTES, UNCOMPL 04/26/2017 JEVON MCMILLAN CARLOS Ot F31.9 BIPOLAR DISORDER, UNSPECIFIED 04/26/2017 MATT ESCOTO DOI Ot F41.9 ANXIETY DISORDER, UNSPECIFIED 04/26/2017 JEVON MCMILLAN CARLOS Ot G40.90 9 EPILEPSY, UNSP, NOT INTRACTABLE, WITHOUT 04/26/2017 JEVON MCMILLAN CARLOS Ot G51.0 MENA'S PALSY 04/26/2017 JEVON MCMILLAN CARLOS Ot H40.9 UNSPECIFIED GLAUCOMA 04/26/2017 JEVON MCMILLAN CARLOS Ot I10 ESSENTIAL (PRIMARY) HYPERTENSION 04/26/2017 JEVON MCMILLAN CARLOS Ot I25.10 ATHSCL HEART DISEASE OF [place] CORONARY 04/26/2017 JEVON MCMILLAN CARLOS Ot J44.9 CHRONIC OBSTRUCTIVE PULMONARY DISEASE, U 04/26/2017 JEVON MCMILLAN CARLOS Ot K21.9 GASTRO-ESOPHAGEAL REFLUX DISEASE WITHOUT 04/26/2017 JEVON MCMILLAN CARLOS Ot K59.09 OTHER CONSTIPATION 04/26/2017 JEVON MCMILLAN CARLOS Ot M19.91 PRIMARY OSTEOARTHRITIS, UNSPECIFIED SITE 04/26/2017 JEVON MCMILLAN CARLOS Ot M25.56 1 PAIN IN RIGHT KNEE 04/26/2017 JEVON MCMILLAN CARLOS Ot M54.6 PAIN IN THORACIC SPINE 04/26/2017 MATT ESCOTO DOI Ot M62.81 MUSCLE WEAKNESS (GENERALIZED) 04/26/2017 ESCOTO DO, CARLOS Ot N31.9 NEUROMUSCULAR DYSFUNCTION OF [place], UN 04/26/2017 JEVON MCMILLAN CARLOS Ot N39.0 URINARY TRACT INFECTION, SITE NOT SPECIF 04/26/2017 JEVON MCMILLAN CARLOS Ot R33.9 RETENTION OF URINE, UNSPECIFIED 04/26/2017 JEVON MCMILLAN CARLOS Ot Z79.84 STEAM TURBINE OPERATOR (CURRENT) USE OF ORAL HYPOGLYC 04/26/2017 JEVON MCMILLAN CARLOS Ot Z79.89 1 FCI (CURRENT) USE OF OPIATE ANALGE 04/26/2017 JEVON MCMILLAN CARLOS Ot Z91.81 HISTORY OF FALLING 04/26/2017 JEVON MCMILLAN CARLOS Ot Z95.1 PRESENCE OF AORTOCORONARY BYPASS GRAFT 04/26/2017 JEVON MCMILLAN CARLOS Ot Z95.5 PRESENCE OF CORONARY ANGIOPLASTY IMPLANT 04/26/2017 JEVON MCMILLAN CARLOS Ot D47.3 ESSENTIAL (HEMORRHAGIC) THROMBOCYTHEMIA 04/26/2017 JEVON MCMILLAN CARLOS Ot E11.9 TYPE 2 DIABETES MELLITUS WITHOUT COMPLIC 04/26/2017 JEVON MCMILLAN CARLOS Ot E22.2 SYNDROME OF INAPPROPRIATE SECRETION OF A 04/26/2017 JEOVN MCMILLAN CARLOS Ot E78.00 PURE HYPERCHOLESTEROLEMIA, UNSPECIFIED 04/26/2017 JEVON MCMILLAN CARLOS Ot F17.21 0 NICOTINE DEPENDENCE, CIGARETTES, UNCOMPL 04/26/2017 JEVON MCMILLAN CARLOS Ot F31.9 BIPOLAR DISORDER, UNSPECIFIED 04/26/2017 JEVON MCMILLAN CARLOS Ot F41.9 ANXIETY DISORDER, UNSPECIFIED 04/26/2017 JEVON MCMILLAN CARLOS Ot G40.90 9 EPILEPSY, UNSP, NOT INTRACTABLE, WITHOUT 04/26/2017 JEVON MCMILLAN CARLOS Ot G51.0 MENA'S PALSY 04/26/2017 JEVON MCMILLAN CARLOS Ot H40.9 UNSPECIFIED GLAUCOMA 04/26/2017 JEVON MCMILLAN CARLOS Ot I10 ESSENTIAL (PRIMARY) HYPERTENSION 04/26/2017 JEVON MCMILLAN CARLOS Ot I25.10 ATHSCL HEART DISEASE OF [place] CORONARY 04/26/2017 JEVON MCMILLAN CARLOS Ot J44.9 CHRONIC OBSTRUCTIVE PULMONARY DISEASE, U 04/26/2017 JEVON MCMILLAN CARLOS Ot K21.9 GASTRO-ESOPHAGEAL REFLUX DISEASE WITHOUT 04/26/2017 JEVON MCMILLAN CARLOS Ot K59.09 OTHER CONSTIPATION 04/26/2017 JEVON MCMILLAN CARLOS Ot M19.91 PRIMARY OSTEOARTHRITIS, UNSPECIFIED SITE 04/26/2017 JEVON MCMILLAN CARLOS Ot M25.56 1 PAIN IN RIGHT KNEE 04/26/2017 JEVON MCMILLAN CARLOS Ot M54.6 PAIN IN THORACIC SPINE 04/26/2017 JEVON MCMILLAN CARLOS Ot M62.81 MUSCLE WEAKNESS (GENERALIZED) 04/26/2017 JEVON MCMILLAN CARLOS Ot N31.9 NEUROMUSCULAR DYSFUNCTION OF [place]ADDER, UN 04/26/2017 JEVON MCMILLAN CARLOS Ot N39.0 URINARY TRACT INFECTION, SITE NOT SPECIF 04/26/2017 JEVON MCMILLAN CARLOS Ot R33.9 RETENTION OF URINE, UNSPECIFIED 04/26/2017 JEVON MCMILLAN CARLOS Ot Z79.84 STEAM TURBINE OPERATOR (CURRENT) USE OF ORAL HYPOGLYC 04/26/2017 JEVON MCMILLAN CARLOS Ot Z79.89 1 STEAM TURBINE OPERATOR (CURRENT) USE OF OPIATE ANALGE 04/26/2017 JEVON MCMILLAN CARLOS Ot Z91.81 HISTORY OF FALLING 04/26/2017 JEVON MCMILLAN CARLOS Ot Z95.1 PRESENCE OF AORTOCORONARY BYPASS GRAFT 04/26/2017 JEVON MCMILLAN CARLOS Ot Z95.5 PRESENCE OF CORONARY ANGIOPLASTY IMPLANT 04/26/2017 JEVON MCMILLAN CARLOS Ot D47.3 ESSENTIAL (HEMORRHAGIC) THROMBOCYTHEMIA 04/26/2017 JEVON MCMILLAN CARLOS Ot E11.9 TYPE 2 DIABETES MELLITUS WITHOUT COMPLIC 04/26/2017 JEVON MCMILLAN CARLOS Ot E22.2 SYNDROME OF INAPPROPRIATE SECRETION OF A 04/26/2017 JEVON MCMILLAN CARLOS Ot E78.00 PURE HYPERCHOLESTEROLEMIA, UNSPECIFIED 04/26/2017 JEVON MCMILLAN CARLOS Ot F17.21 0 NICOTINE DEPENDENCE, CIGARETTES, UNCOMPL 04/26/2017 JEVON MCMILLAN CARLOS Ot F31.9 BIPOLAR DISORDER, UNSPECIFIED 04/26/2017 JEVON MCMILLAN CARLOS Ot F41.9 ANXIETY DISORDER, UNSPECIFIED 04/26/2017 JEVON MCMILLAN CARLOS Ot G40.90 9 EPILEPSY, UNSP, NOT INTRACTABLE, WITHOUT 04/26/2017 JEVON MCMILLAN CARLOS Ot G51.0 MENA'S PALSY 04/26/2017 JEVON MCMILLAN CARLOS Ot H40.9 UNSPECIFIED GLAUCOMA 04/26/2017 JEVON MCMILLAN CARLOS Ot I10 ESSENTIAL (PRIMARY) HYPERTENSION 04/26/2017 CARLOS ESCOTO DO Ot I25.10 ATHSCL HEART DISEASE OF [place] CORONARY 04/26/2017 CARLOS ESCOTO DO Ot J44.9 CHRONIC OBSTRUCTIVE PULMONARY DISEASE, U 04/26/2017 CARLOS ESCOTO DO Ot K21.9 GASTRO-ESOPHAGEAL REFLUX DISEASE WITHOUT 04/26/2017 CARLOS ESCOTO DO Ot K59.09 OTHER CONSTIPATION 04/26/2017 CARLOS ESCOTO DO Ot M19.91 PRIMARY OSTEOARTHRITIS, UNSPECIFIED SITE 04/26/2017 CARLOS ESCOTO DO Ot M25.56 1 PAIN IN RIGHT KNEE 04/26/2017 CARLOS ESCOTO DO Ot M54.6 PAIN IN THORACIC SPINE 04/26/2017 CARLOS ESCOTO DO Ot M62.81 MUSCLE WEAKNESS (GENERALIZED) 04/26/2017 CARLOS ESCOTO DO Ot N31.9 NEUROMUSCULAR DYSFUNCTION OF BLADDER, UN 04/26/2017 CARLOS ESCOTO DO Ot N39.0 URINARY TRACT INFECTION, SITE NOT SPECIF 04/26/2017 CARLOS ESCOTO DO Ot R33.9 RETENTION OF URINE, UNSPECIFIED 04/26/2017 CARLOS ESCOTO DO Ot Z79.84 FCI (CURRENT) USE OF ORAL HYPOGLYC 04/26/2017 CARLOS ESCOTO DO Ot Z79.89 1 FCI (CURRENT) USE OF OPIATE ANALGE 04/26/2017 CARLOS ESCOTO DO Ot Z91.81 HISTORY OF FALLING 04/26/2017 CARLOS ESCOTO DO Ot Z95.1 PRESENCE OF AORTOCORONARY BYPASS GRAFT 04/26/2017 CARLOS ESCOTO DO Ot Z95.5 PRESENCE OF CORONARY ANGIOPLASTY IMPLANT 07/23/2017 Ot 592.0 CALC ULUS OF KIDNEY 07/23/2017 Ot V72.84 EXA M PRE- OPERATIVE NOS 07/23/2017 Ot V74.8 SCRE EN-BACTERIAL DIS NEC 07/23/2017 Ot 250.00 MADHU B BRANDI WO COMPL, TYPE II OR UNSPEC TY 07/23/2017 Ot 354.0 CARP AL TUNNEL SYNDROME 07/23/2017 Ot 354.2 ULNA R NERVE LESION 07/23/2017 Ot 401.9 HYPE RTENSION NOS 07/23/2017 Ot 727.03 TRI GGER FINGER 07/23/2017 Ot 780.39 OTH ER CONVULSIONS 07/23/2017 Ot V45.81 AOR TOCORONARY BYPASS 07/23/2017 Ot V58.69 OTH MED,LT,CURRENT USE 07/23/2017 Ot 354.0 CARP AL TUNNEL SYNDROME 07/23/2017 Ot 727.03 TRI GGER FINGER 07/23/2017 Ot V72.84 EXA M PRE- OPERATIVE NOS 07/23/2017 Ot V74.8 SCRE EN-BACTERIAL DIS NEC 07/26/2017 CARLOS ESCOTO DO Ot D47.3 ESSENTIAL (HEMORRHAGIC) THROMBOCYTHEMIA 07/26/2017 CARLOS ESCOTO DO Ot D64.9 ANEMIA, UNSPECIFIED 07/26/2017 CARLOS ESCOTO DO Ot E11.9 TYPE 2 DIABETES MELLITUS WITHOUT COMPLIC 07/26/2017 CARLOS ESCOTO DO Ot E78.5 HYPERLIPIDEMIA, UNSPECIFIED 07/26/2017 CARLOS ESCOTO DO Ot F17.21 0 NICOTINE DEPENDENCE, CIGARETTES, UNCOMPL 07/26/2017 CARLOS ESCOTO DO Ot G40.90 9 EPILEPSY, UNSP, NOT INTRACTABLE, WITHOUT 07/26/2017 CARLOS ESCOTO DO Ot I10 ESSENTIAL (PRIMARY) HYPERTENSION 07/26/2017 CARLOS ESCOTO DO Ot I25.10 ATHSCL HEART DISEASE OF [place] CORONARY 07/26/2017 CARLOS ESCOTO DO Ot I34.0 NONRHEUMATIC MITRAL (VALVE) INSUFFICIENC 07/26/2017 CARLOS ESCOTO DO Ot J44.9 CHRONIC OBSTRUCTIVE PULMONARY DISEASE, U 07/26/2017 CARLOS ESCOTO DO Ot K21.9 GASTRO-ESOPHAGEAL REFLUX DISEASE WITHOUT 07/26/2017 CARLOS ESCOTO DO Ot K59.00 CONSTIPATION, UNSPECIFIED 07/26/2017 CARLOS ESCOTO DO Ot M25.50 PAIN IN UNSPECIFIED JOINT 07/26/2017 CARLOS ESCOTO DO Ot M25.55 1 PAIN IN RIGHT HIP 07/26/2017 CARLOS ESCOTO DO Ot N40.0 BENIGN PROSTATIC HYPERPLASIA WITHOUT LOW 07/26/2017 CARLOS ESCOTO DO Ot S72.11 4A NONDISP FX OF GREATER TROCHANTER OF [place] 07/26/2017 CARLOS ESCOTO DO Ot W19.XX XA UNSPECIFIED FALL, INITIAL ENCOUNTER 07/26/2017 CARLOS ESCOTO DO Ot Y92.[address] IN [facility] NON-INSTITUT (PRIVATE 07/26/2017 JEVON MCMILLAN CARLOS Ot Z66 DO NOT RESUSCITATE 07/26/2017 MATT ESCOTO DOI Ot Z95.1 PRESENCE OF AORTOCORONARY BYPASS GRAFT 07/26/2017 MATT ESCOTO DOI Ot Z95.5 PRESENCE OF CORONARY ANGIOPLASTY IMPLANT 01/29/2019 THEODORE DO, SYL L Ot E11.9 TYPE 2 DIABETES MELLITUS WITHOUT COMPLIC 01/29/2019 THEODORE DO, SYL L Ot E78.0 0 PURE HYPERCHOLESTEROLEMIA, UNSPECIFIED 01/29/2019 THEODORE DO, SYL L Ot F31.9 BIPOLAR DISORDER, UNSPECIFIED 01/29/2019 THEODORE DO, SYL L Ot F41.9 ANXIETY DISORDER, UNSPECIFIED 01/29/2019 THEODORE DO, SYL L Ot G40.9 09 EPILEPSY, UNSP, NOT INTRACTABLE, WITHOUT 01/29/2019 THEODORE DO, SYL L Ot G43.9 09 MIGRAINE, UNSP, NOT INTRACTABLE, WITHOUT 01/29/2019 THEODORE DO, SYL L Ot I10 ESSENTIAL (PRIMARY) HYPERTENSION 01/29/2019 THEODORE DO, SYL L Ot I25.1 0 ATHSCL HEART DISEASE OF [place] CORONARY 01/29/2019 THEODORE DO, SYL L Ot J43.9 EMPHYSEMA, UNSPECIFIED 01/29/2019 THEODORE DO, SYL L Ot K21.9 GASTRO-ESOPHAGEAL REFLUX DISEASE WITHOUT 01/29/2019 THEODORE DO, SYL L Ot R07.8 9 OTHER CHEST PAIN 01/29/2019 THEODORE DO, SYL L Ot R79.8 9 OTHER SPECIFIED ABNORMAL FINDINGS OF BLO 01/29/2019 THEODORE DO, SYL L Ot Z77.2 2 CNTCT W AND EXPSR TO ENVIRON TOBACCO SMO 01/29/2019 THEODORE DO, SYL L Ot Z79.0 2 [facility] (CURRENT) USE OF ANTITHROMBOTI 01/29/2019 THEODORE DO, SYL L Ot Z79.5 1 [facility] (CURRENT) USE OF INHALED STERO 01/29/2019 THEODORE DO, SYL L Ot 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 01/29/2019 THEODORE DO, SYL L Ot Z87.1 9 PERSONAL HISTORY OF OTHER DISEASES OF TH 01/29/2019 THEODORE DO, SYL L Ot Z87.4 42 PERSONAL HISTORY OF URINARY CALCULI 01/29/2019 THEODORE DO, SYL L Ot Z87.4 48 PERSONAL HISTORY OF OTHER DISEASES OF UR 01/29/2019 THEODORE DO, SYL L Ot Z88.0 ALLERGY STATUS TO PENICILLIN 01/29/2019 THEODORE DO, SYL L Ot Z88.1 ALLERGY STATUS TO OTHER ANTIBIOTIC AGENT 01/29/2019 THEODORE DO, SYL L Ot Z88.2 ALLERGY STATUS TO SULFONAMIDES STATUS 01/29/2019 THEODORE DO, SYL L Ot Z88.8 ALLERGY STATUS TO OTH DRUG/MEDS/BIOL SUB 01/29/2019 THEODORE DO, SYL L Ot Z90.4 9 ACQUIRED ABSENCE OF OTHER SPECIFIED PART 01/29/2019 THEODORE DO, SYL L Ot Z90.7 9 ACQUIRED ABSENCE OF OTHER GENITAL ORGAN( 01/29/2019 THEODORE DO, SYL L Ot Z95.1 PRESENCE OF AORTOCORONARY BYPASS GRAFT 01/29/2019 THEODORE DO, SYL L Ot Z95.5 PRESENCE OF CORONARY ANGIOPLASTY IMPLANT 01/29/2019 THEODORE DO, SYL L Ot Z96.0 PRESENCE OF UROGENITAL IMPLANTS 01/29/2019 THEODORE DO, SYL L Ot Z98.8 90 OTHER SPECIFIED POSTPROCEDURAL STATES 01/31/2019 THEODORE DO, SYL L Ot E11.9 TYPE 2 DIABETES MELLITUS WITHOUT COMPLIC 01/31/2019 THEODORE DO, SYL L Ot E78.0 0 PURE HYPERCHOLESTEROLEMIA, UNSPECIFIED 01/31/2019 THEODORE DO, SYL L Ot F31.9 BIPOLAR DISORDER, UNSPECIFIED 01/31/2019 THEODORE DO, SYL L Ot F41.9 ANXIETY DISORDER, UNSPECIFIED 01/31/2019 THEODORE DO, SYL L Ot G40.9 09 EPILEPSY, UNSP, NOT INTRACTABLE, WITHOUT 01/31/2019 THEODORE DO, SYL L Ot G43.9 09 MIGRAINE, UNSP, NOT INTRACTABLE, WITHOUT 01/31/2019 THEODORE DO, SYL L Ot I10 ESSENTIAL (PRIMARY) HYPERTENSION 01/31/2019 THEODORE DO, SYL L Ot I25.1 0 ATHSCL HEART DISEASE OF [place] CORONARY 01/31/2019 THEODORE DO, SYL L Ot J43.9 EMPHYSEMA, UNSPECIFIED 01/31/2019 THEODORE DO, SYL L Ot K21.9 GASTRO-ESOPHAGEAL REFLUX DISEASE WITHOUT 01/31/2019 THEODORE DO, SYL L Ot R07.8 9 OTHER CHEST PAIN 01/31/2019 THEODORE DO, SYL L Ot R79.8 9 OTHER SPECIFIED ABNORMAL FINDINGS OF BLO 01/31/2019 THEODORE DO, SYL L Ot Z77.2 2 CNTCT W AND EXPSR TO ENVIRON TOBACCO SMO 01/31/2019 THEODORE DO, SYL L Ot Z79.0 2 [facility] (CURRENT) USE OF ANTITHROMBOTI 01/31/2019 THEODORE DO, SYL L Ot Z79.5 1 [facility] (CURRENT) USE OF INHALED STERO 01/31/2019 THEODORE DO, SYL L Ot 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 01/31/2019 THEODORE DO, SYL L Ot Z87.1 9 PERSONAL HISTORY OF OTHER DISEASES OF TH 01/31/2019 THEODORE DO, SYL L Ot Z87.4 42 PERSONAL HISTORY OF URINARY CALCULI 01/31/2019 THEODORE DO, SYL L Ot Z87.4 48 PERSONAL HISTORY OF OTHER DISEASES OF UR 01/31/2019 THEODORE DO, SYL L Ot Z88.0 ALLERGY STATUS TO PENICILLIN 01/31/2019 THEODORE DO, SYL L Ot Z88.1 ALLERGY STATUS TO OTHER ANTIBIOTIC AGENT 01/31/2019 THEODORE DO, SYL L Ot Z88.2 ALLERGY STATUS TO SULFONAMIDES STATUS 01/31/2019 THEODORE DO, SYL L Ot Z88.8 ALLERGY STATUS TO OTH DRUG/MEDS/BIOL SUB 01/31/2019 THEODORE DO, SYL L Ot Z90.4 9 ACQUIRED ABSENCE OF OTHER SPECIFIED PART 01/31/2019 THEODORE DO, SYL L Ot Z90.7 9 ACQUIRED ABSENCE OF OTHER GENITAL ORGAN( 01/31/2019 THEODORE DO, SYL L Ot Z95.1 PRESENCE OF AORTOCORONARY BYPASS GRAFT 01/31/2019 THEODORE DO, SYL L Ot Z95.5 PRESENCE OF CORONARY ANGIOPLASTY IMPLANT 01/31/2019 THEODORE DO, SYL L Ot Z96.0 PRESENCE OF UROGENITAL IMPLANTS 01/31/2019 THEODORE DO, SYL L Ot Z98.8 90 OTHER SPECIFIED POSTPROCEDURAL STATES 06/05/2019 CHICHI CARDENAS DO Ot E11.9 TYPE 2 DIABETES MELLITUS WITHOUT COMPLIC 06/05/2019 CHICHI CARDENAS DO, Ot E78.00 PURE HYPERCHOLESTEROLEMIA, UNSPECIFIED 06/05/2019 CHICHI CARDENAS DO, Ot F31.9 BIPOLAR DISORDER, UNSPECIFIED 06/05/2019 CHICHI CARDENAS DO, Ot F41.9 ANXIETY DISORDER, UNSPECIFIED 06/05/2019 CHICHI CARDENAS DO, Ot G40.909 EPILEPSY, UNSP, NOT INTRACTABLE, WITHOUT 06/05/2019 CHICHI CARDENAS DO, Ot G43.909 MIGRAINE, UNSP, NOT INTRACTABLE, WITHOUT 06/05/2019 CHICHI CARDENAS DO, Ot I1 0 ESSENTIAL (PRIMARY) HYPERTENSION 06/05/2019 CHICHI CARDENAS DO, Ot I25.10 ATHSCL HEART DISEASE OF [place] CORONARY 06/05/2019 CHICHI CARDENAS DO, Ot J43.9 EMPHYSEMA, UNSPECIFIED 06/05/2019 CHICHI CARDENAS DO, Ot K21.9 GASTRO-ESOPHAGEAL REFLUX DISEASE WITHOUT 06/05/2019 CHICHI CARDENAS DO, Ot M54.2 CERVICALGIA 06/05/2019 CHICHI CARDENAS DO, Ot S13.9XXA SPRAIN OF JOINTS AND LIGAMENTS OF UNSP P 06/05/2019 CHICHI CARDENAS DO, Ot S30.0XXA CONTUSION OF LOWER BACK AND PELVIS, INIT 06/05/2019 CHICHI CARDENAS DO, Ot S33.5XXA SPRAIN OF LIGAMENTS OF LUMBAR SPINE, INI 06/05/2019 CHICHI CARDENAS DO, Ot S70.02XA CONTUSION OF LEFT HIP, INITIAL ENCOUNTER 06/05/2019 CHICHI CARDENAS DO, Ot W07.XXXA FALL FROM CHAIR, INITIAL ENCOUNTER 06/05/2019 CHICHI CARDENAS DO, Ot Y92.[address] [facility] NON-INSTITUT (PRIVATE 06/05/2019 CHICHI CARDENAS DO, Ot Z79.02 STEAM TURBINE OPERATOR (CURRENT) USE OF ANTITHROMBOTI 06/05/2019 CHICHI CAREDNAS DO, Ot Z79.51 STEAM TURBINE OPERATOR (CURRENT) USE OF INHALED STERO 06/05/2019 CHICHI CARDENAS DO, Ot Z79.82 [facility] (CURRENT) USE OF ASPIRIN 06/05/2019 CHICHI CARDENAS DO, Ot Z87.442 PERSONAL HISTORY OF URINARY CALCULI 06/05/2019 CHICHI CARDENAS DO, Ot Z88.0 ALLERGY STATUS TO PENICILLIN 06/05/2019 CHICHI CARDENAS DO, Ot Z88.1 ALLERGY STATUS TO OTHER ANTIBIOTIC AGENT 06/05/2019 CHICHI CARDENAS DO, Ot Z88.2 ALLERGY STATUS TO SULFONAMIDES STATUS 06/05/2019 CHICHI CARDENAS DO, Ot Z88.8 ALLERGY STATUS TO OTH DRUG/MEDS/BIOL SUB 06/05/2019 CHICHI CARDENAS DO, Ot Z95.1 PRESENCE OF AORTOCORONARY BYPASS GRAFT 06/05/2019 CHICHI CARDENAS DO, Ot Z95.5 PRESENCE OF CORONARY ANGIOPLASTY IMPLANT 06/07/2019 CHICHI CARDENAS DO, Ot E11.9 TYPE 2 DIABETES MELLITUS WITHOUT COMPLIC 06/07/2019 CHICHI CARDENAS DO, Ot E78.00 PURE HYPERCHOLESTEROLEMIA, UNSPECIFIED 06/07/2019 CHICHI CARDENAS DO, Ot F31.9 BIPOLAR DISORDER, UNSPECIFIED 06/07/2019 CHICHI CARDENAS DO, Ot F41.9 ANXIETY DISORDER, UNSPECIFIED 06/07/2019 CHICHI CARDENAS DO, Ot G40.909 EPILEPSY, UNSP, NOT INTRACTABLE, WITHOUT 06/07/2019 CHICHI CARDENAS DO, Ot G43.909 MIGRAINE, UNSP, NOT INTRACTABLE, WITHOUT 06/07/2019 CHICHI CARDENAS DO, Ot I1 0 ESSENTIAL (PRIMARY) HYPERTENSION 06/07/2019 CHICHI CARDENAS DO, Ot I25.10 ATHSCL HEART DISEASE OF [place] CORONARY 06/07/2019 CHICHI CARDENAS DO, Ot J43.9 EMPHYSEMA, UNSPECIFIED 06/07/2019 CHICHI CARDENAS DO, Ot K21.9 GASTRO-ESOPHAGEAL REFLUX DISEASE WITHOUT 06/07/2019 CHICHI CARDENAS DO, Ot M54.2 CERVICALGIA 06/07/2019 CHICHI CARDENAS DO, Ot S13.9XXA SPRAIN OF JOINTS AND LIGAMENTS OF UNSP P 06/07/2019 CHICHI CARDENAS DO, Ot S30.0XXA CONTUSION OF LOWER BACK AND PELVIS, INIT 06/07/2019 CHICHI CARDENAS DO, Ot S33.5XXA SPRAIN OF LIGAMENTS OF LUMBAR SPINE, INI 06/07/2019 CHICHI CARDENAS DO, Ot S70.02XA CONTUSION OF LEFT HIP, INITIAL ENCOUNTER 06/07/2019 CHICHI CARDENAS DO, Ot W07.XXXA FALL FROM CHAIR, INITIAL ENCOUNTER 06/07/2019 CHICHI CARDENAS DO, Ot Y92.[address] [facility] [address] IN [facility] NON-INSTITUT (PRIVATE 06/07/2019 CHICHI CARDENAS DO, Ot Z79.02 STEAM TURBINE OPERATOR (CURRENT) USE OF ANTITHROMBOTI 06/07/2019 CHICHI CARDENAS DO, Ot Z79.51 [facility] (CURRENT) USE OF INHALED STERO 06/07/2019 CHICHI CARDENAS DO, Ot Z79.82 STEAM TURBINE OPERATOR (CURRENT) USE OF ASPIRIN 06/07/2019 CHICHI CARDENAS DO, Ot Z87.442 PERSONAL HISTORY OF URINARY CALCULI 06/07/2019 CHICHI CARDENAS DO, Ot Z88.0 ALLERGY STATUS TO PENICILLIN 06/07/2019 CHICHI CARDENAS DO, Ot Z88.1 ALLERGY STATUS TO OTHER ANTIBIOTIC AGENT 06/07/2019 CHICHI CARDENAS DO, Ot Z88.2 ALLERGY STATUS TO SULFONAMIDES STATUS 06/07/2019 CHICHI CARDENAS DO Ot Z88.8 ALLERGY STATUS TO OTH DRUG/MEDS/BIOL SUB 06/07/2019 CHICHI CARDENAS DO Ot Z95.1 PRESENCE OF AORTOCORONARY BYPASS GRAFT 06/07/2019 CHICHI CARDENAS DO Ot Z95.5 PRESENCE OF CORONARY ANGIOPLASTY IMPLANT 06/12/2019 ALBERT KNOTT MD Ot N40.1 BENIGN PROSTATIC HYPERPLASIA WITH LOWER 12/18/2019 ALBERT KNOTT MD Ot N40.1 BENIGN PROSTATIC HYPERPLASIA WITH LOWER 12/18/2019 ALBERT KNOTT MD Ot N40.1 BENIGN PROSTATIC HYPERPLASIA WITH LOWER 12/19/2019 LOUANN COREY MD Ot Z01.89 ENCOUNTER FOR OTHER SPECIFIED SPECIAL EX 12/19/2019 LOUANN COREY MD Ot Z79.899 OTHER [facility] (CURRENT) DRUG THERAPY 12/20/2019 ALBERT KNOTT MD Ot N40.1 BENIGN PROSTATIC HYPERPLASIA WITH LOWER 12/20/2019 LOUANN COREY MD Ot Z01.89 ENCOUNTER FOR OTHER SPECIFIED SPECIAL EX 12/20/2019 LOUANN COREY MD Ot Z79.899 OTHER [facility] (CURRENT) DRUG THERAPY 12/24/2019 LOUANN COREY MD Ot Z01.89 ENCOUNTER FOR OTHER SPECIFIED SPECIAL EX 12/24/2019 LOUANN COREY MD Ot Z79.899 OTHER STEAM TURBINE OPERATOR (CURRENT) DRUG THERAPY 01/26/2020 ALBERT KNOTT MD Ot N40.1 BENIGN PROSTATIC HYPERPLASIA WITH LOWER 01/26/2020 LOUANN COREY MD Ot Z01.89 ENCOUNTER FOR OTHER SPECIFIED SPECIAL EX 01/26/2020 LOUANN COREY MD Ot Z79.899 OTHER [facility] (CURRENT) DRUG THERAPY 01/26/2020 ALBERT KNOTT MD Ot N40.1 BENIGN PROSTATIC HYPERPLASIA WITH LOWER 01/26/2020 LOUANN COREY MD Ot Z01.89 ENCOUNTER FOR OTHER SPECIFIED SPECIAL EX 01/26/2020 LOUANN COREY MD Ot Z79.899 OTHER [facility] (CURRENT) DRUG THERAPY 01/26/2020 ALBERT KNOTT MD Ot N40.1 BENIGN PROSTATIC HYPERPLASIA WITH LOWER 01/26/2020 LOUANN COREY MD Ot Z01.89 ENCOUNTER FOR OTHER SPECIFIED SPECIAL EX 01/26/2020 LOUANN COREY MD Ot Z79.899 OTHER STEAM TURBINE OPERATOR (CURRENT) DRUG THERAPY 01/31/2020 ISABELLA DEAL MD Ot E11.9 TYPE 2 DIABETES MELLITUS WITHOUT COMPLIC 01/31/2020 ISABELLA DEAL MD Ot E78.00 PURE HYPERCHOLESTEROLEMIA, UNSPECIFIED 01/31/2020 ISABELLA DEAL MD Ot E87.1 HYPO-OSMOLALITY AND HYPONATREMIA 01/31/2020 ISABELLA DEAL MD Ot F17.210 NICOTINE DEPENDENCE, CIGARETTES, UNCOMPL 01/31/2020 ISABELLA DEAL MD Ot F31.9 BIPOLAR DISORDER, UNSPECIFIED 01/31/2020 ISABELLA DEAL MD Ot F41.9 ANXIETY DISORDER, UNSPECIFIED 01/31/2020 ISABELLA DEAL MD Ot G40.909 EPILEPSY, UNSP, NOT INTRACTABLE, WITHOUT 01/31/2020 ISABELLA DEAL MD Ot G43.909 MIGRAINE, UNSP, NOT INTRACTABLE, WITHOUT 01/31/2020 ISABELLA DEAL MD Ot I1 0 ESSENTIAL (PRIMARY) HYPERTENSION 01/31/2020 ISABELLA DEAL MD Ot I25.10 ATHSCL HEART DISEASE OF [place] CORONARY 01/31/2020 ISABELLA DEAL MD Ot J43.9 EMPHYSEMA, UNSPECIFIED 01/31/2020 ISABELLA DEAL MD Ot J45.909 UNSPECIFIED ASTHMA, UNCOMPLICATED 01/31/2020 ISABELLA DEAL MD Ot K21.9 GASTRO-ESOPHAGEAL REFLUX DISEASE WITHOUT 01/31/2020 ISABELLA DEAL MD, Ot N39.0 URINARY TRACT INFECTION, SITE NOT SPECIF 01/31/2020 ISABELLA DEAL MD, Ot R56.9 UNSPECIFIED CONVULSIONS 01/31/2020 ISABELLA DEAL MD, Ot Z79.02 [facility] (CURRENT) USE OF ANTITHROMBOTI 01/31/2020 ISABELLA DEAL MD, Ot Z88.0 ALLERGY STATUS TO PENICILLIN 01/31/2020 ISABELLA DEAL MD, Ot Z88.1 ALLERGY STATUS TO OTHER ANTIBIOTIC AGENT 01/31/2020 ISABELLA DEAL MD, Ot Z88.2 ALLERGY STATUS TO SULFONAMIDES STATUS 01/31/2020 ISABELLA DEAL MD, Ot Z88.8 ALLERGY STATUS TO OTH DRUG/MEDS/BIOL SUB 01/31/2020 ISABELLA DEAL MD, Ot Z95.1 PRESENCE OF AORTOCORONARY BYPASS GRAFT Procedures Code Description Performed By Per tad On [id number] RE POSITION LEFT UPPER FEMUR WITH INTRAME 03/08/2017 [id number] IN SPECTION OF BLADDER, ENDO 03/10/2017 Results Test Result Range Complete blood count (CBC) with automate d white blood cell (WBC) differential - 03/07/17 20:05 Blood leukocytes automated count (number/volume) 9.8 10*3/uL 4.3-11.0 Blood erythrocytes automated count (number/volume) 4.72 10*6/uL 4.35-5.85 Venous blood hemoglobin measurement (mass/volume) 14.0 g/dL 13.3-17.7 Blood hematocrit (volume fraction) 39 % 40-54 Automated erythrocyte mean corpuscular volume 83 [ foz_us] 80-99 Automated erythrocyte mean corpuscular h emoglobin (mass per erythrocyte) 30 pg 25-34 Automated erythrocyte mean corpuscular h emoglobin concentration measurement (mass/volume) 36 g/dL 32-36 Automated erythrocyte distribution width ratio 13. 7 % 10.0- 14.5 Automated blood platelet count (count/volume) 331 10*3/uL 130-400 Automated blood platelet mean volume measurement 8.0 [foz_us] 7.4-10.4 Automated blood neutrophils/100 leukocytes 62 % 42-75 Automated blood lymphocytes/100 leukocytes 28 % 12-44 Blood monocytes/100 leukocytes 9 % 0-12 Automated blood eosinophils/100 leukocytes 1 % 0-10 Automated blood basophils/100 leukocytes 0 % 0-10 Blood neutrophils automated count (number/volume) 6.1 10*3 1.8-7.8 Blood lymphocytes automated count (number/volume) 2.8 10*3 1.0-4.0 Blood monocytes automated count (number/volume) 0. 9 10*3 0.0-1.0 Automated eosinophil count 0.1 10*3/uL 0 .0-0.3 Automated blood basophil count (count/volume) 0.0 10*3/uL 0.0-0.1 PT panel in platelet poor plasma by coag ulation assay - 03/07/17 20:05 Prothrombin time (PT) in platelet poor plasma by coagu lation assay 14.1 s 12.2-14.7 INR in platelet poor plasma or blood by coagulation as say 1.1 0.8-1.4 Activated partial thromboplastin time (a PTT) in platelet poor plasma bycoagulation assay - 03/07/17 20:05 Activated partial thromboplastin time (a PTT) in platelet poor plasma bycoagulation assay 32 s 24-35 Comprehensive metabolic panel - 03/07/17 20:05 Serum or plasma sodium measurement (moles/volume) 131 mmol/L 135-145 Serum or plasma potassium measurement (moles/volume) 4.0 mmol/L 3.6-5.0 Serum or plasma chloride measurement (moles/volume) 97 mmol/L 98-107 Carbon dioxide 23 mmol/L 21-32 Serum or plasma anion gap determination (moles/volume) 11 mmol/L 5-14 Serum or plasma urea nitrogen measurement (mass/volume ) 13 mg/dL 7-18 Serum or plasma creatinine measurement (mass/volume) 0.87 mg/dL 0.60-1.30 Serum or plasma urea nitrogen/creatinine mass ratio 15 NRG Serum or plasma creatinine measurement w ith calculation of estimated glomerular filtration rate > NRG Serum or plasma glucose measurement (mass/volume) 125 mg/dL 70-105 Serum or plasma calcium measurement (mass/volume) 9.1 mg/dL 8.5-10.1 Serum or plasma total bilirubin measurement (mass/volu me) 0.5 mg/dL 0.1-1.0 Serum or plasma alkaline phosphatase delmi surement (enzymatic activity/volume) 61 U/L 40-136 Serum or plasma aspartate aminotransfera se measurement (enzymatic activity/volume) 35 U/L 5-34 Serum or plasma alanine aminotransferase measurement (enzymatic activity/volume) 22 U/L 0-55 Serum or plasma protein measurement (mass/volume) 6.7 g/dL 6.4-8.2 Serum or plasma albumin measurement (mass/volume) 4.2 g/dL 3.2-4.5 Magnesium - 03/07/17 20:05 Magnesium 1.8 mg/dL 1.8-2.4 Serum or plasma troponin i.cardiac measu rement (mass/volume) - 03/07/17 20:05 Serum or plasma troponin i.cardiac measurement (mass/v olume) < ng/mL <0.30 Serum or plasma phenytoin measurement (m ass/volume) - 03/07/17 20:05 Serum or plasma phenytoin measurement (mass/volume) 11.8 ug/mL 10.0-20.0 Capillary blood glucose measurement by g lucometer (mass/volume) - 03/08/17 02:04 Capillary blood glucose measurement by glucometer (mas s/volume) 194 mg/dL 70-110 Methicillin resistant Staphylococcus aur eus (MRSA) screening culture - 03/08/17 02:20 Methicillin resistant Staphylococcus aureus (MRSA) scr eening culture NEG NRG Complete blood count (CBC) with automate d white blood cell (WBC) differential - 03/08/17 05:20 Blood leukocytes automated count (number/volume) 10.7 10*3/uL 4.3-11.0 Blood erythrocytes automated count (number/volume) 4.74 10*6/uL 4.35-5.85 Venous blood hemoglobin measurement (mass/volume) 13.9 g/dL 13.3-17.7 Blood hematocrit (volume fraction) 39 % 40-54 Automated erythrocyte mean corpuscular volume 83 [ foz_us] 80-99 Automated erythrocyte mean corpuscular h emoglobin (mass per erythrocyte) 29 pg 25-34 Automated erythrocyte mean corpuscular h emoglobin concentration measurement (mass/volume) 35 g/dL 32-36 Automated erythrocyte distribution width ratio 13. 8 % 10.0- 14.5 Automated blood platelet count (count/volume) 298 10*3/uL 130-400 Automated blood platelet mean volume measurement 7.8 [foz_us] 7.4-10.4 Automated blood neutrophils/100 leukocytes 75 % 42-75 Automated blood lymphocytes/100 leukocytes 14 % 12-44 Blood monocytes/100 leukocytes 11 % 0-12 Automated blood eosinophils/100 leukocytes 0 % 0-10 Automated blood basophils/100 leukocytes 0 % 0-10 Blood neutrophils automated count (number/volume) 8.0 10*3 1.8-7.8 Blood lymphocytes automated count (number/volume) 1.5 10*3 1.0-4.0 Blood monocytes automated count (number/volume) 1. 1 10*3 0.0-1.0 Automated eosinophil count 0.0 10*3/uL 0 .0-0.3 Automated blood basophil count (count/volume) 0.0 10*3/uL 0.0-0.1 Comprehensive metabolic panel - 03/08/17 05:20 Serum or plasma sodium measurement (moles/volume) 129 mmol/L 135-145 Serum or plasma potassium measurement (moles/volume) 4.0 mmol/L 3.6-5.0 Serum or plasma chloride measurement (moles/volume) 97 mmol/L 98-107 Carbon dioxide 23 mmol/L 21-32 Serum or plasma anion gap determination (moles/volume) 9 mmol/L 5-14 Serum or plasma urea nitrogen measurement (mass/volume ) 10 mg/dL 7-18 Serum or plasma creatinine measurement (mass/volume) 0.81 mg/dL 0.60-1.30 Serum or plasma urea nitrogen/creatinine mass ratio 12 NRG Serum or plasma creatinine measurement w ith calculation of estimated glomerular filtration rate > NRG Serum or plasma glucose measurement (mass/volume) 181 mg/dL 70-105 Serum or plasma calcium measurement (mass/volume) 8.4 mg/dL 8.5-10.1 Serum or plasma total bilirubin measurement (mass/volu me) 1.7 mg/dL 0.1-1.0 Serum or plasma alkaline phosphatase delmi surement (enzymatic activity/volume) 111 U/L 40-136 Serum or plasma aspartate aminotransfera se measurement (enzymatic activity/volume) 712 U/L 5-34 Serum or plasma alanine aminotransferase measurement (enzymatic activity/volume) 271 U/L 0-55 Serum or plasma protein measurement (mass/volume) 6.1 g/dL 6.4-8.2 Serum or plasma albumin measurement (mass/volume) 3.8 g/dL 3.2-4.5 Capillary blood glucose measurement by g lucometer (mass/volume) - 03/08/17 15:04 Capillary blood glucose measurement by glucometer (mas s/volume) 170 mg/dL 70-110 Capillary blood glucose measurement by g lucometer (mass/volume) - 03/08/17 18:09 Capillary blood glucose measurement by glucometer (mas s/volume) 195 mg/dL 70-110 Capillary blood glucose measurement by g lucometer (mass/volume) - 03/09/17 00:10 Capillary blood glucose measurement by glucometer (mas s/volume) 198 mg/dL 70-110 Automated blood complete blood count (he mogram) panel - 03/09/17 05:30 Blood leukocytes automated count (number/volume) 9.0 10*3/uL 4.3-11.0 Blood erythrocytes automated count (number/volume) 3.48 10*6/uL 4.35-5.85 Venous blood hemoglobin measurement (mass/volume) 10.3 g/dL 13.3-17.7 Blood hematocrit (volume fraction) 29 % 40-54 Automated erythrocyte mean corpuscular volume 85 [ foz_us] 80-99 Automated erythrocyte mean corpuscular h emoglobin (mass per erythrocyte) 30 pg 25-34 Automated erythrocyte mean corpuscular h emoglobin concentration measurement (mass/volume) 35 g/dL 32-36 Automated erythrocyte distribution width ratio 13. 5 % 10.0- 14.5 Automated blood platelet count (count/volume) 271 10*3/uL 130-400 Automated blood platelet mean volume measurement 8.4 [foz_us] 7.4-10.4 Comprehensive metabolic panel - 03/09/17 05:30 Serum or plasma sodium measurement (moles/volume) 129 mmol/L 135-145 Serum or plasma potassium measurement (moles/volume) 4.1 mmol/L 3.6-5.0 Serum or plasma chloride measurement (moles/volume) 97 mmol/L 98-107 Carbon dioxide 22 mmol/L 21-32 Serum or plasma anion gap determination (moles/volume) 10 mmol/L 5-14 Serum or plasma urea nitrogen measurement (mass/volume ) 10 mg/dL 7-18 Serum or plasma creatinine measurement (mass/volume) 1.09 mg/dL 0.60-1.30 Serum or plasma urea nitrogen/creatinine mass ratio 9 NRG Serum or plasma creatinine measurement w ith calculation of estimated glomerular filtration rate > NRG Serum or plasma glucose measurement (mass/volume) 154 mg/dL 70-105 Serum or plasma calcium measurement (mass/volume) 8.1 mg/dL 8.5-10.1 Serum or plasma total bilirubin measurement (mass/volu me) 0.8 mg/dL 0.1-1.0 Serum or plasma alkaline phosphatase delmi surement (enzymatic activity/volume) 134 U/L 40-136 Serum or plasma aspartate aminotransfera se measurement (enzymatic activity/volume) 288 U/L 5-34 Serum or plasma alanine aminotransferase measurement (enzymatic activity/volume) 259 U/L 0-55 Serum or plasma protein measurement (mass/volume) 5.3 g/dL 6.4-8.2 Serum or plasma albumin measurement (mass/volume) 3.4 g/dL 3.2-4.5 Capillary blood glucose measurement by g lucometer (mass/volume) - 03/09/17 11:10 Capillary blood glucose measurement by glucometer (mas s/volume) 195 mg/dL 70-110 Capillary blood glucose measurement by g lucometer (mass/volume) - 03/09/17 16:15 Capillary blood glucose measurement by glucometer (mas s/volume) 148 mg/dL 70-110 Capillary blood glucose measurement by g lucometer (mass/volume) - 03/09/17 20:30 Capillary blood glucose measurement by glucometer (mas s/volume) 193 mg/dL 70-110 Capillary blood glucose measurement by g lucometer (mass/volume) - 03/10/17 05:54 Capillary blood glucose measurement by glucometer (mas s/volume) 190 mg/dL 70-110 Automated blood complete blood count (he mogram) panel - 03/10/17 06:10 Blood leukocytes automated count (number/volume) 8.4 10*3/uL 4.3-11.0 Blood erythrocytes automated count (number/volume) 3.06 10*6/uL 4.35-5.85 Venous blood hemoglobin measurement (mass/volume) 9.1 g/dL 13.3-17.7 Blood hematocrit (volume fraction) 25 % 40-54 Automated erythrocyte mean corpuscular volume 83 [ foz_us] 80-99 Automated erythrocyte mean corpuscular h emoglobin (mass per erythrocyte) 30 pg 25-34 Automated erythrocyte mean corpuscular h emoglobin concentration measurement (mass/volume) 36 g/dL 32-36 Automated erythrocyte distribution width ratio 13. 4 % 10.0- 14.5 Automated blood platelet count (count/volume) 261 10*3/uL 130-400 Automated blood platelet mean volume measurement 8.2 [foz_us] 7.4-10.4 Comprehensive metabolic panel - 03/10/17 06:10 Serum or plasma sodium measurement (moles/volume) 129 mmol/L 135-145 Serum or plasma potassium measurement (moles/volume) 3.9 mmol/L 3.6-5.0 Serum or plasma chloride measurement (moles/volume) 96 mmol/L 98-107 Carbon dioxide 22 mmol/L 21-32 Serum or plasma anion gap determination (moles/volume) 11 mmol/L 5-14 Serum or plasma urea nitrogen measurement (mass/volume ) 13 mg/dL 7-18 Serum or plasma creatinine measurement (mass/volume) 0.88 mg/dL 0.60-1.30 Serum or plasma urea nitrogen/creatinine mass ratio 15 NRG Serum or plasma creatinine measurement w ith calculation of estimated glomerular filtration rate > NRG Serum or plasma glucose measurement (mass/volume) 180 mg/dL 70-105 Serum or plasma calcium measurement (mass/volume) 8.5 mg/dL 8.5-10.1 Serum or plasma total bilirubin measurement (mass/volu me) 0.8 mg/dL 0.1-1.0 Serum or plasma alkaline phosphatase delmi surement (enzymatic activity/volume) 123 U/L 40-136 Serum or plasma aspartate aminotransfera se measurement (enzymatic activity/volume) 76 U/L 5-34 Serum or plasma alanine aminotransferase measurement (enzymatic activity/volume) 109 U/L 0-55 Serum or plasma protein measurement (mass/volume) 5.7 g/dL 6.4-8.2 Serum or plasma albumin measurement (mass/volume) 3.5 g/dL 3.2-4.5 Capillary blood glucose measurement by g lucometer (mass/volume) - 03/10/17 10:47 Capillary blood glucose measurement by glucometer (mas s/volume) 214 mg/dL 70-110 Capillary blood glucose measurement by g lucometer (mass/volume) - 03/10/17 16:11 Capillary blood glucose measurement by glucometer (mas s/volume) 176 mg/dL 70-110 Capillary blood glucose measurement by g lucometer (mass/volume) - 03/10/17 20:40 Capillary blood glucose measurement by glucometer (mas s/volume) 227 mg/dL 70-110 Complete blood count (CBC) with automate d white blood cell (WBC) differential - 03/11/17 04:35 Blood leukocytes automated count (number/volume) 9.4 10*3/uL 4.3-11.0 Blood erythrocytes automated count (number/volume) 2.96 10*6/uL 4.35-5.85 Venous blood hemoglobin measurement (mass/volume) 8.8 g/dL 13.3-17.7 Blood hematocrit (volume fraction) 25 % 40-54 Automated erythrocyte mean corpuscular volume 83 [ foz_us] 80-99 Automated erythrocyte mean corpuscular h emoglobin (mass per erythrocyte) 30 pg 25-34 Automated erythrocyte mean corpuscular h emoglobin concentration measurement (mass/volume) 36 g/dL 32-36 Automated erythrocyte distribution width ratio 13. 2 % 10.0- 14.5 Automated blood platelet count (count/volume) 333 10*3/uL 130-400 Automated blood platelet mean volume measurement 8.3 [foz_us] 7.4-10.4 Automated blood neutrophils/100 leukocytes 66 % 42-75 Automated blood lymphocytes/100 leukocytes 17 % 12-44 Blood monocytes/100 leukocytes 15 % 0-12 Automated blood eosinophils/100 leukocytes 1 % 0-10 Automated blood basophils/100 leukocytes 0 % 0-10 Blood neutrophils automated count (number/volume) 6.2 10*3 1.8-7.8 Blood lymphocytes automated count (number/volume) 1.6 10*3 1.0-4.0 Blood monocytes automated count (number/volume) 1. 4 10*3 0.0-1.0 Automated eosinophil count 0.1 10*3/uL 0 .0-0.3 Automated blood basophil count (count/volume) 0.0 10*3/uL 0.0-0.1 Comprehensive metabolic panel - 03/11/17 04:35 Serum or plasma sodium measurement (moles/volume) 131 mmol/L 135-145 Serum or plasma potassium measurement (moles/volume) 3.8 mmol/L 3.6-5.0 Serum or plasma chloride measurement (moles/volume) 99 mmol/L 98-107 Carbon dioxide 21 mmol/L 21-32 Serum or plasma anion gap determination (moles/volume) 11 mmol/L 5-14 Serum or plasma urea nitrogen measurement (mass/volume ) 11 mg/dL 7-18 Serum or plasma creatinine measurement (mass/volume) 0.81 mg/dL 0.60-1.30 Serum or plasma urea nitrogen/creatinine mass ratio 14 NRG Serum or plasma creatinine measurement w ith calculation of estimated glomerular filtration rate > NRG Serum or plasma glucose measurement (mass/volume) 211 mg/dL 70-105 Serum or plasma calcium measurement (mass/volume) 8.6 mg/dL 8.5-10.1 Serum or plasma total bilirubin measurement (mass/volu me) 0.6 mg/dL 0.1-1.0 Serum or plasma alkaline phosphatase delmi surement (enzymatic activity/volume) 126 U/L 40-136 Serum or plasma aspartate aminotransfera se measurement (enzymatic activity/volume) 31 U/L 5-34 Serum or plasma alanine aminotransferase measurement (enzymatic activity/volume) 66 U/L 0-55 Serum or plasma protein measurement (mass/volume) 5.8 g/dL 6.4-8.2 Serum or plasma albumin measurement (mass/volume) 3.5 g/dL 3.2-4.5 Capillary blood glucose measurement by g lucometer (mass/volume) - 03/11/17 11:04 Capillary blood glucose measurement by glucometer (mas s/volume) 209 mg/dL 70-110 Capillary blood glucose measurement by g lucometer (mass/volume) - 03/11/17 16:00 Capillary blood glucose measurement by glucometer (mas s/volume) 208 mg/dL 70-110 Capillary blood glucose measurement by g lucometer (mass/volume) - 03/11/17 20:20 Capillary blood glucose measurement by glucometer (mas s/volume) 254 mg/dL 70-110 Capillary blood glucose measurement by g lucometer (mass/volume) - 03/12/17 02:21 Capillary blood glucose measurement by glucometer (mas s/volume) 195 mg/dL 70-110 Capillary blood glucose measurement by g lucometer (mass/volume) - 03/12/17 06:02 Capillary blood glucose measurement by glucometer (mas s/volume) 215 mg/dL 70-110 Capillary blood glucose measurement by g lucometer (mass/volume) - 03/12/17 11:03 Capillary blood glucose measurement by glucometer (mas s/volume) 218 mg/dL 70-110 Capillary blood glucose measurement by g lucometer (mass/volume) - 03/12/17 16:06 Capillary blood glucose measurement by glucometer (mas s/volume) 187 mg/dL 70-110 Capillary blood glucose measurement by g lucometer (mass/volume) - 03/12/17 20:15 Capillary blood glucose measurement by glucometer (mas s/volume) 171 mg/dL 70-110 Capillary blood glucose measurement by g lucometer (mass/volume) - 03/13/17 05:54 Capillary blood glucose measurement by glucometer (mas s/volume) 246 mg/dL 70-110 Capillary blood glucose measurement by g lucometer (mass/volume) - 03/13/17 10:43 Capillary blood glucose measurement by glucometer (mas s/volume) 193 mg/dL 70-110 Capillary blood glucose measurement by g lucometer (mass/volume) - 03/13/17 15:58 Capillary blood glucose measurement by glucometer (mas s/volume) 174 mg/dL 70-110 Capillary blood glucose measurement by g lucometer (mass/volume) - 03/13/17 20:12 Capillary blood glucose measurement by glucometer (mas s/volume) 217 mg/dL 70-110 Capillary blood glucose measurement by g lucometer (mass/volume) - 03/14/17 06:08 Capillary blood glucose measurement by glucometer (mas s/volume) 270 mg/dL 70-110 Capillary blood glucose measurement by g lucometer (mass/volume) - 03/14/17 11:27 Capillary blood glucose measurement by glucometer (mas s/volume) 259 mg/dL 70-110 Capillary blood glucose measurement by g lucometer (mass/volume) - 03/14/17 16:07 Capillary blood glucose measurement by glucometer (mas s/volume) 198 mg/dL 70-110 Capillary blood glucose measurement by g lucometer (mass/volume) - 03/14/17 21:29 Capillary blood glucose measurement by glucometer (mas s/volume) 183 mg/dL 70-110 Capillary blood glucose measurement by g lucometer (mass/volume) - 03/15/17 05:18 Capillary blood glucose measurement by glucometer (mas s/volume) 239 mg/dL 70-110 Capillary blood glucose measurement by g lucometer (mass/volume) - 03/15/17 10:54 Capillary blood glucose measurement by glucometer (mas s/volume) 180 mg/dL 70-110 Capillary blood glucose measurement by g lucometer (mass/volume) - 03/15/17 16:07 Capillary blood glucose measurement by glucometer (mas s/volume) 183 mg/dL 70-110 Capillary blood glucose measurement by g lucometer (mass/volume) - 03/15/17 20:49 Capillary blood glucose measurement by glucometer (mas s/volume) 187 mg/dL 70-110 Capillary blood glucose measurement by g lucometer (mass/volume) - 03/16/17 06:49 Capillary blood glucose measurement by glucometer (mas s/volume) 213 mg/dL 70-110 Capillary blood glucose measurement by g lucometer (mass/volume) - 03/16/17 11:03 Capillary blood glucose measurement by glucometer (mas s/volume) 165 mg/dL 70-110 Comprehensive metabolic panel - 03/16/17 14:25 Serum or plasma sodium measurement (moles/volume) 140 mmol/L 135-145 Serum or plasma potassium measurement (moles/volume) 4.3 mmol/L 3.6-5.0 Serum or plasma chloride measurement (moles/volume) 104 mmol/L 98-107 Carbon dioxide 25 mmol/L 21-32 Serum or plasma anion gap determination (moles/volume) 11 mmol/L 5-14 Serum or plasma urea nitrogen measurement (mass/volume ) 19 mg/dL 7-18 Serum or plasma creatinine measurement (mass/volume) 1.03 mg/dL 0.60-1.30 Serum or plasma urea nitrogen/creatinine mass ratio 18 NRG Serum or plasma creatinine measurement w ith calculation of estimated glomerular filtration rate > NRG Serum or plasma glucose measurement (mass/volume) 151 mg/dL 70-105 Serum or plasma calcium measurement (mass/volume) 9.6 mg/dL 8.5-10.1 Serum or plasma total bilirubin measurement (mass/volu me) 0.7 mg/dL 0.1-1.0 Serum or plasma alkaline phosphatase delmi surement (enzymatic activity/volume) 185 U/L 40-136 Serum or plasma aspartate aminotransfera se measurement (enzymatic activity/volume) 36 U/L 5-34 Serum or plasma alanine aminotransferase measurement (enzymatic activity/volume) 44 U/L 0-55 Serum or plasma protein measurement (mass/volume) 6.7 g/dL 6.4-8.2 Serum or plasma albumin measurement (mass/volume) 3.9 g/dL 3.2-4.5 Capillary blood glucose measurement by g lucometer (mass/volume) - 03/16/17 15:57 Capillary blood glucose measurement by glucometer (mas s/volume) 163 mg/dL 70-110 Capillary blood glucose measurement by g lucometer (mass/volume) - 03/16/17 20:41 Capillary blood glucose measurement by glucometer (mas s/volume) 189 mg/dL 70-110 Capillary blood glucose measurement by g lucometer (mass/volume) - 03/17/17 05:03 Capillary blood glucose measurement by glucometer (mas s/volume) 179 mg/dL 70-110 Capillary blood glucose measurement by g lucometer (mass/volume) - 03/17/17 10:47 Capillary blood glucose measurement by glucometer (mas s/volume) 171 mg/dL 70-110 Capillary blood glucose measurement by g lucometer (mass/volume) - 03/17/17 15:59 Capillary blood glucose measurement by glucometer (mas s/volume) 145 mg/dL 70-110 Capillary blood glucose measurement by g lucometer (mass/volume) - 03/17/17 20:50 Capillary blood glucose measurement by glucometer (mas s/volume) 154 mg/dL 70-110 Capillary blood glucose measurement by g lucometer (mass/volume) - 03/18/17 06:35 Capillary blood glucose measurement by glucometer (mas s/volume) 176 mg/dL 70-110 Capillary blood glucose measurement by g lucometer (mass/volume) - 03/18/17 11:10 Capillary blood glucose measurement by glucometer (mas s/volume) 181 mg/dL 70-110 Capillary blood glucose measurement by g lucometer (mass/volume) - 03/18/17 16:28 Capillary blood glucose measurement by glucometer (mas s/volume) 184 mg/dL 70-110 Capillary blood glucose measurement by g lucometer (mass/volume) - 03/18/17 20:45 Capillary blood glucose measurement by glucometer (mas s/volume) 148 mg/dL 70-110 Capillary blood glucose measurement by g lucometer (mass/volume) - 03/19/17 05:43 Capillary blood glucose measurement by glucometer (mas s/volume) 161 mg/dL 70-110 Comprehensive metabolic panel - 03/19/17 05:44 Serum or plasma sodium measurement (moles/volume) 139 mmol/L 135-145 Serum or plasma potassium measurement (moles/volume) 3.7 mmol/L 3.6-5.0 Serum or plasma chloride measurement (moles/volume) 105 mmol/L 98-107 Carbon dioxide 24 mmol/L 21-32 Serum or plasma anion gap determination (moles/volume) 10 mmol/L 5-14 Serum or plasma urea nitrogen measurement (mass/volume ) 16 mg/dL 7-18 Serum or plasma creatinine measurement (mass/volume) 0.78 mg/dL 0.60-1.30 Serum or plasma urea nitrogen/creatinine mass ratio 21 NRG Serum or plasma creatinine measurement w ith calculation of estimated glomerular filtration rate > NRG Serum or plasma glucose measurement (mass/volume) 157 mg/dL 70-105 Serum or plasma calcium measurement (mass/volume) 9.1 mg/dL 8.5-10.1 Serum or plasma total bilirubin measurement (mass/volu me) 0.5 mg/dL 0.1-1.0 Serum or plasma alkaline phosphatase delmi surement (enzymatic activity/volume) 162 U/L 40-136 Serum or plasma aspartate aminotransfera se measurement (enzymatic activity/volume) 23 U/L 5-34 Serum or plasma alanine aminotransferase measurement (enzymatic activity/volume) 32 U/L 0-55 Serum or plasma protein measurement (mass/volume) 6.2 g/dL 6.4-8.2 Serum or plasma albumin measurement (mass/volume) 3.6 g/dL 3.2-4.5 Capillary blood glucose measurement by g lucometer (mass/volume) - 03/19/17 11:06 Capillary blood glucose measurement by glucometer (mas s/volume) 154 mg/dL 70-110 Capillary blood glucose measurement by g lucometer (mass/volume) - 03/19/17 15:45 Capillary blood glucose measurement by glucometer (mas s/volume) 125 mg/dL 70-110 Capillary blood glucose measurement by g lucometer (mass/volume) - 03/19/17 20:45 Capillary blood glucose measurement by glucometer (mas s/volume) 171 mg/dL 70-110 Capillary blood glucose measurement by g lucometer (mass/volume) - 03/20/17 05:23 Capillary blood glucose measurement by glucometer (mas s/volume) 140 mg/dL 70-110 Capillary blood glucose measurement by g lucometer (mass/volume) - 03/20/17 11:06 Capillary blood glucose measurement by glucometer (mas s/volume) 162 mg/dL 70-110 Capillary blood glucose measurement by g lucometer (mass/volume) - 03/20/17 16:13 Capillary blood glucose measurement by glucometer (mas s/volume) 123 mg/dL 70-110 Capillary blood glucose measurement by g lucometer (mass/volume) - 03/20/17 20:33 Capillary blood glucose measurement by glucometer (mas s/volume) 158 mg/dL 70-110 Capillary blood glucose measurement by g lucometer (mass/volume) - 03/21/17 06:54 Capillary blood glucose measurement by glucometer (mas s/volume) 159 mg/dL 70-110 Capillary blood glucose measurement by g lucometer (mass/volume) - 03/21/17 11:12 Capillary blood glucose measurement by glucometer (mas s/volume) 268 mg/dL 70-110 Capillary blood glucose measurement by g lucometer (mass/volume) - 03/21/17 15:58 Capillary blood glucose measurement by glucometer (mas s/volume) 163 mg/dL 70-110 Capillary blood glucose measurement by g lucometer (mass/volume) - 03/22/17 11:13 Capillary blood glucose measurement by glucometer (mas s/volume) 146 mg/dL 70-110 Capillary blood glucose measurement by g lucometer (mass/volume) - 03/22/17 16:49 Capillary blood glucose measurement by glucometer (mas s/volume) 105 mg/dL 70-110 Capillary blood glucose measurement by g lucometer (mass/volume) - 03/22/17 21:15 Capillary blood glucose measurement by glucometer (mas s/volume) 176 mg/dL 70-110 Capillary blood glucose measurement by g lucometer (mass/volume) - 03/23/17 04:09 Capillary blood glucose measurement by glucometer (mas s/volume) 137 mg/dL 70-110 Capillary blood glucose measurement by g lucometer (mass/volume) - 03/23/17 11:11 Capillary blood glucose measurement by glucometer (mas s/volume) 138 mg/dL 70-110 Capillary blood glucose measurement by g lucometer (mass/volume) - 03/23/17 16:18 Capillary blood glucose measurement by glucometer (mas s/volume) 120 mg/dL 70-110 Capillary blood glucose measurement by g lucometer (mass/volume) - 03/23/17 20:41 Capillary blood glucose measurement by glucometer (mas s/volume) 126 mg/dL 70-110 Capillary blood glucose measurement by g lucometer (mass/volume) - 03/24/17 04:46 Capillary blood glucose measurement by glucometer (mas s/volume) 143 mg/dL 70-110 Complete blood count (CBC) with automate d white blood cell (WBC) differential - 04/22/17 15:20 Blood leukocytes automated count (number/volume) 8.3 10*3/uL 4.3-11.0 Blood erythrocytes automated count (number/volume) 5.35 10*6/uL 4.35-5.85 Venous blood hemoglobin measurement (mass/volume) 15.0 g/dL 13.3-17.7 Blood hematocrit (volume fraction) 44 % 40-54 Automated erythrocyte mean corpuscular volume 83 [ foz_us] 80-99 Automated erythrocyte mean corpuscular h emoglobin (mass per erythrocyte) 28 pg 25-34 Automated erythrocyte mean corpuscular h emoglobin concentration measurement (mass/volume) 34 g/dL 32-36 Automated erythrocyte distribution width ratio 14. 0 % 10.0- 14.5 Automated blood platelet count (count/volume) 478 10*3/uL 130-400 Automated blood platelet mean volume measurement 7.7 [foz_us] 7.4-10.4 Automated blood neutrophils/100 leukocytes 71 % 42-75 Automated blood lymphocytes/100 leukocytes 16 % 12-44 Blood monocytes/100 leukocytes 13 % 0-12 Automated blood eosinophils/100 leukocytes 0 % 0-10 Automated blood basophils/100 leukocytes 0 % 0-10 Blood neutrophils automated count (number/volume) 5.9 10*3 1.8-7.8 Blood lymphocytes automated count (number/volume) 1.3 10*3 1.0-4.0 Blood monocytes automated count (number/volume) 1. 1 10*3 0.0-1.0 Automated eosinophil count 0.0 10*3/uL 0 .0-0.3 Automated blood basophil count (count/volume) 0.0 10*3/uL 0.0-0.1 Blood lactic acid measurement (moles/vol ume) - 04/22/17 15:20 Blood lactic acid measurement (moles/volume) 0.75 mmol/L 0.50-2.00 Comprehensive metabolic panel - 04/22/17 15:20 Serum or plasma sodium measurement (moles/volume) 132 mmol/L 135-145 Serum or plasma potassium measurement (moles/volume) 4.2 mmol/L 3.6-5.0 Serum or plasma chloride measurement (moles/volume) 96 mmol/L 98-107 Carbon dioxide 23 mmol/L 21-32 Serum or plasma anion gap determination (moles/volume) 13 mmol/L 5-14 Serum or plasma urea nitrogen measurement (mass/volume ) 15 mg/dL 7-18 Serum or plasma creatinine measurement (mass/volume) 0.82 mg/dL 0.60-1.30 Serum or plasma urea nitrogen/creatinine mass ratio 18 0-20 Serum or plasma creatinine measurement w ith calculation of estimated glomerular filtration rate > NRG Serum or plasma glucose measurement (mass/volume) 172 mg/dL 70-105 Serum or plasma calcium measurement (mass/volume) 9.7 mg/dL 8.5-10.1 Serum or plasma total bilirubin measurement (mass/volu me) 0.5 mg/dL 0.1-1.0 Serum or plasma alkaline phosphatase delmi surement (enzymatic activity/volume) 138 U/L 40-136 Serum or plasma aspartate aminotransfera se measurement (enzymatic activity/volume) 35 U/L 5-34 Serum or plasma alanine aminotransferase measurement (enzymatic activity/volume) 26 U/L 0-55 Serum or plasma protein measurement (mass/volume) 6.5 g/dL 6.4-8.2 Serum or plasma albumin measurement (mass/volume) 3.5 g/dL 3.2-4.5 Serum or plasma troponin i.cardiac measu rement (mass/volume) - 04/22/17 15:20 Serum or plasma troponin i.cardiac measurement (mass/v olume) < ng/mL <0.30 Serum or plasma lithium measurement (mol es/volume) - 04/22/17 15:20 BNP level 105.6 pg/mL <100.0 Bacterial blood culture - 04/22/17 15:20 Bacterial blood culture NG NRG Bacterial blood culture - 04/22/17 15:33 Bacterial blood culture NG NRG Complete urinalysis with reflex to cultu re - 04/22/17 16:30 Urine color determination YELLOW NRG Urine clarity determination VERY CLOUDY NRG Urine pH measurement by test strip 6 5-9 Specific gravity of urine by test strip 1.015 1.016-1.022 Urine protein assay by test strip, semi-quantitative 3+ NEGATIVE Urine glucose detection by automated test strip NE GATIVE NEGATIVE Erythrocytes detection in urine sediment by light micr oscopy 4+ NEGATIVE Urine ketones detection by automated test strip NE GATIVE NEGATIVE Urine nitrite detection by test strip NEGATIVE NEGATIVE Urine total bilirubin detection by test strip NEGA TIVE NEGATIVE Urine urobilinogen measurement by automated test strip (mass/volume) 1 mg/dL NORMAL Urine leukocyte esterase detection by dipstick 3+ NEGATIVE Automated urine sediment erythrocyte cou nt by microscopy (number/high power field) NONE NRG Automated urine sediment leukocyte count by microscopy (number/high power field) TNTC NRG Bacteria detection in urine sediment by light microsco py FEW NRG Crystals detection in urine sediment by light microsco py NONE NRG Casts detection in urine sediment by light microscopy NONE NRG Mucus detection in urine sediment by light microscopy NEGATIVE NRG Complete urinalysis with reflex to culture YES NRG Bacterial urine culture - 04/22/17 16:30 Bacterial urine culture NG NRG Complete blood count (CBC) with automate d white blood cell (WBC) differential - 04/23/17 06:34 Blood leukocytes automated count (number/volume) 9.8 10*3/uL 4.3-11.0 Blood erythrocytes automated count (number/volume) 3.57 10*6/uL 4.35-5.85 Venous blood hemoglobin measurement (mass/volume) 10.1 g/dL 13.3-17.7 Blood hematocrit (volume fraction) 30 % 40-54 Automated erythrocyte mean corpuscular volume 85 [ foz_us] 80-99 Automated erythrocyte mean corpuscular h emoglobin (mass per erythrocyte) 28 pg 25-34 Automated erythrocyte mean corpuscular h emoglobin concentration measurement (mass/volume) 33 g/dL 32-36 Automated erythrocyte distribution width ratio 13. 7 % 10.0- 14.5 Automated blood platelet count (count/volume) 622 10*3/uL 130-400 Automated blood platelet mean volume measurement 7.8 [foz_us] 7.4-10.4 Automated blood neutrophils/100 leukocytes 76 % 42-75 Automated blood lymphocytes/100 leukocytes 13 % 12-44 Blood monocytes/100 leukocytes 11 % 0-12 Automated blood eosinophils/100 leukocytes 0 % 0-10 Automated blood basophils/100 leukocytes 0 % 0-10 Blood neutrophils automated count (number/volume) 7.4 10*3 1.8-7.8 Blood lymphocytes automated count (number/volume) 1.2 10*3 1.0-4.0 Blood monocytes automated count (number/volume) 1. 1 10*3 0.0-1.0 Automated eosinophil count 0.0 10*3/uL 0 .0-0.3 Automated blood basophil count (count/volume) 0.0 10*3/uL 0.0-0.1 Comprehensive metabolic panel - 04/23/17 06:34 Serum or plasma sodium measurement (moles/volume) 136 mmol/L 135-145 Serum or plasma potassium measurement (moles/volume) 4.3 mmol/L 3.6-5.0 Serum or plasma chloride measurement (moles/volume) 102 mmol/L 98-107 Carbon dioxide 23 mmol/L 21-32 Serum or plasma anion gap determination (moles/volume) 11 mmol/L 5-14 Serum or plasma urea nitrogen measurement (mass/volume ) 16 mg/dL 7-18 Serum or plasma creatinine measurement (mass/volume) 0.74 mg/dL 0.60-1.30 Serum or plasma urea nitrogen/creatinine mass ratio 22 0-20 Serum or plasma creatinine measurement w ith calculation of estimated glomerular filtration rate > NRG Serum or plasma glucose measurement (mass/volume) 237 mg/dL 70-105 Serum or plasma calcium measurement (mass/volume) 9.3 mg/dL 8.5-10.1 Serum or plasma total bilirubin measurement (mass/volu me) 0.3 mg/dL 0.1-1.0 Serum or plasma alkaline phosphatase delmi surement (enzymatic activity/volume) 118 U/L 40-136 Serum or plasma aspartate aminotransfera se measurement (enzymatic activity/volume) 30 U/L 5-34 Serum or plasma alanine aminotransferase measurement (enzymatic activity/volume) 23 U/L 0-55 Serum or plasma protein measurement (mass/volume) 6.6 g/dL 6.4-8.2 Serum or plasma albumin measurement (mass/volume) 3.0 g/dL 3.2-4.5 Capillary blood glucose measurement by g lucometer (mass/volume) - 04/23/17 11:18 Capillary blood glucose measurement by glucometer (mas s/volume) 284 mg/dL 70-110 Capillary blood glucose measurement by g lucometer (mass/volume) - 04/23/17 16:54 Capillary blood glucose measurement by glucometer (mas s/volume) 134 mg/dL 70-110 Capillary blood glucose measurement by g lucometer (mass/volume) - 04/23/17 20:38 Capillary blood glucose measurement by glucometer (mas s/volume) 224 mg/dL 70-110 Complete blood count (CBC) with automate d white blood cell (WBC) differential - 04/24/17 04:38 Blood leukocytes automated count (number/volume) 9.7 10*3/uL 4.3-11.0 Blood erythrocytes automated count (number/volume) 3.35 10*6/uL 4.35-5.85 Venous blood hemoglobin measurement (mass/volume) 9.3 g/dL 13.3-17.7 Blood hematocrit (volume fraction) 29 % 40-54 Automated erythrocyte mean corpuscular volume 85 [ foz_us] 80-99 Automated erythrocyte mean corpuscular h emoglobin (mass per erythrocyte) 28 pg 25-34 Automated erythrocyte mean corpuscular h emoglobin concentration measurement (mass/volume) 33 g/dL 32-36 Automated erythrocyte distribution width ratio 13. 5 % 10.0- 14.5 Automated blood platelet count (count/volume) 550 10*3/uL 130-400 Automated blood platelet mean volume measurement 7.9 [foz_us] 7.4-10.4 Automated blood neutrophils/100 leukocytes 77 % 42-75 Automated blood lymphocytes/100 leukocytes 12 % 12-44 Blood monocytes/100 leukocytes 11 % 0-12 Automated blood eosinophils/100 leukocytes 1 % 0-10 Automated blood basophils/100 leukocytes 0 % 0-10 Blood neutrophils automated count (number/volume) 7.5 10*3 1.8-7.8 Blood lymphocytes automated count (number/volume) 1.1 10*3 1.0-4.0 Blood monocytes automated count (number/volume) 1. 0 10*3 0.0-1.0 Automated eosinophil count 0.1 10*3/uL 0 .0-0.3 Automated blood basophil count (count/volume) 0.0 10*3/uL 0.0-0.1 Comprehensive metabolic panel - 04/24/17 04:38 Serum or plasma sodium measurement (moles/volume) 136 mmol/L 135-145 Serum or plasma potassium measurement (moles/volume) 4.0 mmol/L 3.6-5.0 Serum or plasma chloride measurement (moles/volume) 104 mmol/L 98-107 Carbon dioxide 21 mmol/L 21-32 Serum or plasma anion gap determination (moles/volume) 11 mmol/L 5-14 Serum or plasma urea nitrogen measurement (mass/volume ) 14 mg/dL 7-18 Serum or plasma creatinine measurement (mass/volume) 0.71 mg/dL 0.60-1.30 Serum or plasma urea nitrogen/creatinine mass ratio 20 0-20 Serum or plasma creatinine measurement w ith calculation of estimated glomerular filtration rate > NRG Serum or plasma glucose measurement (mass/volume) 192 mg/dL 70-105 Serum or plasma calcium measurement (mass/volume) 8.7 mg/dL 8.5-10.1 Serum or plasma total bilirubin measurement (mass/volu me) 0.4 mg/dL 0.1-1.0 Serum or plasma alkaline phosphatase delmi surement (enzymatic activity/volume) 129 U/L 40-136 Serum or plasma aspartate aminotransfera se measurement (enzymatic activity/volume) 34 U/L 5-34 Serum or plasma alanine aminotransferase measurement (enzymatic activity/volume) 26 U/L 0-55 Serum or plasma protein measurement (mass/volume) 5.9 g/dL 6.4-8.2 Serum or plasma albumin measurement (mass/volume) 2.9 g/dL 3.2-4.5 Capillary blood glucose measurement by g lucometer (mass/volume) - 04/24/17 11:16 Capillary blood glucose measurement by glucometer (mas s/volume) 286 mg/dL 70-110 Vancomycin trough - 04/24/17 14:12 Vancomycin trough 12.2 ug/mL 10.0-20.0 Capillary blood glucose measurement by g lucometer (mass/volume) - 04/24/17 16:24 Capillary blood glucose measurement by glucometer (mas s/volume) 159 mg/dL 70-110 Capillary blood glucose measurement by g lucometer (mass/volume) - 04/24/17 20:36 Capillary blood glucose measurement by glucometer (mas s/volume) 269 mg/dL 70-110 Complete blood count (CBC) with automate d white blood cell (WBC) differential - 04/25/17 04:30 Blood leukocytes automated count (number/volume) 9.1 10*3/uL 4.3-11.0 Blood erythrocytes automated count (number/volume) 3.22 10*6/uL 4.35-5.85 Venous blood hemoglobin measurement (mass/volume) 9.2 g/dL 13.3-17.7 Blood hematocrit (volume fraction) 27 % 40-54 Automated erythrocyte mean corpuscular volume 85 [ foz_us] 80-99 Automated erythrocyte mean corpuscular h emoglobin (mass per erythrocyte) 29 pg 25-34 Automated erythrocyte mean corpuscular h emoglobin concentration measurement (mass/volume) 34 g/dL 32-36 Automated erythrocyte distribution width ratio 13. 5 % 10.0- 14.5 Automated blood platelet count (count/volume) 564 10*3/uL 130-400 Automated blood platelet mean volume measurement 7.8 [foz_us] 7.4-10.4 Automated blood neutrophils/100 leukocytes 71 % 42-75 Automated blood lymphocytes/100 leukocytes 17 % 12-44 Blood monocytes/100 leukocytes 12 % 0-12 Automated blood eosinophils/100 leukocytes 1 % 0-10 Automated blood basophils/100 leukocytes 0 % 0-10 Blood neutrophils automated count (number/volume) 6.4 10*3 1.8-7.8 Blood lymphocytes automated count (number/volume) 1.6 10*3 1.0-4.0 Blood monocytes automated count (number/volume) 1. 1 10*3 0.0-1.0 Automated eosinophil count 0.1 10*3/uL 0 .0-0.3 Automated blood basophil count (count/volume) 0.0 10*3/uL 0.0-0.1 Comprehensive metabolic panel - 04/25/17 04:30 Serum or plasma sodium measurement (moles/volume) 136 mmol/L 135-145 Serum or plasma potassium measurement (moles/volume) 4.0 mmol/L 3.6-5.0 Serum or plasma chloride measurement (moles/volume) 103 mmol/L 98-107 Carbon dioxide 22 mmol/L 21-32 Serum or plasma anion gap determination (moles/volume) 11 mmol/L 5-14 Serum or plasma urea nitrogen measurement (mass/volume ) 10 mg/dL 7-18 Serum or plasma creatinine measurement (mass/volume) 0.74 mg/dL 0.60-1.30 Serum or plasma urea nitrogen/creatinine mass ratio 14 0-20 Serum or plasma creatinine measurement w ith calculation of estimated glomerular filtration rate > NRG Serum or plasma glucose measurement (mass/volume) 180 mg/dL 70-105 Serum or plasma calcium measurement (mass/volume) 8.9 mg/dL 8.5-10.1 Serum or plasma total bilirubin measurement (mass/volu me) 0.3 mg/dL 0.1-1.0 Serum or plasma alkaline phosphatase delmi surement (enzymatic activity/volume) 127 U/L 40-136 Serum or plasma aspartate aminotransfera se measurement (enzymatic activity/volume) 24 U/L 5-34 Serum or plasma alanine aminotransferase measurement (enzymatic activity/volume) 20 U/L 0-55 Serum or plasma protein measurement (mass/volume) 6.1 g/dL 6.4-8.2 Serum or plasma albumin measurement (mass/volume) 2.8 g/dL 3.2-4.5 Capillary blood glucose measurement by g lucometer (mass/volume) - 04/25/17 11:15 Capillary blood glucose measurement by glucometer (mas s/volume) 258 mg/dL 70-110 Capillary blood glucose measurement by g lucometer (mass/volume) - 04/25/17 16:16 Capillary blood glucose measurement by glucometer (mas s/volume) 242 mg/dL 70-110 Capillary blood glucose measurement by g lucometer (mass/volume) - 04/25/17 20:32 Capillary blood glucose measurement by glucometer (mas s/volume) 134 mg/dL 70-110 Complete blood count (CBC) with automate d white blood cell (WBC) differential - 04/26/17 04:21 Blood leukocytes automated count (number/volume) 9.2 10*3/uL 4.3-11.0 Blood erythrocytes automated count (number/volume) 3.43 10*6/uL 4.35-5.85 Venous blood hemoglobin measurement (mass/volume) 9.7 g/dL 13.3-17.7 Blood hematocrit (volume fraction) 29 % 40-54 Automated erythrocyte mean corpuscular volume 85 [ foz_us] 80-99 Automated erythrocyte mean corpuscular h emoglobin (mass per erythrocyte) 28 pg 25-34 Automated erythrocyte mean corpuscular h emoglobin concentration measurement (mass/volume) 33 g/dL 32-36 Automated erythrocyte distribution width ratio 13. 5 % 10.0- 14.5 Automated blood platelet count (count/volume) 606 10*3/uL 130-400 Automated blood platelet mean volume measurement 8.0 [foz_us] 7.4-10.4 Automated blood neutrophils/100 leukocytes 73 % 42-75 Automated blood lymphocytes/100 leukocytes 15 % 12-44 Blood monocytes/100 leukocytes 12 % 0-12 Automated blood eosinophils/100 leukocytes 1 % 0-10 Automated blood basophils/100 leukocytes 0 % 0-10 Blood neutrophils automated count (number/volume) 6.7 10*3 1.8-7.8 Blood lymphocytes automated count (number/volume) 1.4 10*3 1.0-4.0 Blood monocytes automated count (number/volume) 1. 1 10*3 0.0-1.0 Automated eosinophil count 0.1 10*3/uL 0 .0-0.3 Automated blood basophil count (count/volume) 0.0 10*3/uL 0.0-0.1 Comprehensive metabolic panel - 04/26/17 04:21 Serum or plasma sodium measurement (moles/volume) 138 mmol/L 135-145 Serum or plasma potassium measurement (moles/volume) 3.7 mmol/L 3.6-5.0 Serum or plasma chloride measurement (moles/volume) 103 mmol/L 98-107 Carbon dioxide 24 mmol/L 21-32 Serum or plasma anion gap determination (moles/volume) 11 mmol/L 5-14 Serum or plasma urea nitrogen measurement (mass/volume ) 9 mg/dL 7-18 Serum or plasma creatinine measurement (mass/volume) 0.79 mg/dL 0.60-1.30 Serum or plasma urea nitrogen/creatinine mass ratio 11 0-20 Serum or plasma creatinine measurement w ith calculation of estimated glomerular filtration rate > NRG Serum or plasma glucose measurement (mass/volume) 237 mg/dL 70-105 Serum or plasma calcium measurement (mass/volume) 8.8 mg/dL 8.5-10.1 Serum or plasma total bilirubin measurement (mass/volu me) 0.3 mg/dL 0.1-1.0 Serum or plasma alkaline phosphatase delmi surement (enzymatic activity/volume) 133 U/L 40-136 Serum or plasma aspartate aminotransfera se measurement (enzymatic activity/volume) 18 U/L 5-34 Serum or plasma alanine aminotransferase measurement (enzymatic activity/volume) 21 U/L 0-55 Serum or plasma protein measurement (mass/volume) 6.1 g/dL 6.4-8.2 Serum or plasma albumin measurement (mass/volume) 2.9 g/dL 3.2-4.5 Capillary blood glucose measurement by g lucometer (mass/volume) - 04/26/17 10:50 Capillary blood glucose measurement by glucometer (mas s/volume) 234 mg/dL 70-110 Complete blood count (CBC) with automate d white blood cell (WBC) differential - 07/24/17 05:45 Blood leukocytes automated count (number/volume) 7.5 10*3/uL 4.3-11.0 Blood erythrocytes automated count (number/volume) 3.00 10*6/uL 4.35-5.85 Venous blood hemoglobin measurement (mass/volume) 7.4 g/dL 13.3-17.7 Blood hematocrit (volume fraction) 24 % 40-54 Automated erythrocyte mean corpuscular volume 80 [ foz_us] 80-99 Automated erythrocyte mean corpuscular h emoglobin (mass per erythrocyte) 25 pg 25-34 Automated erythrocyte mean corpuscular h emoglobin concentration measurement (mass/volume) 31 g/dL 32-36 Automated erythrocyte distribution width ratio 16. 3 % 10.0- 14.5 Automated blood platelet count (count/volume) 630 10*3/uL 130-400 Automated blood platelet mean volume measurement 7.5 [foz_us] 7.4-10.4 Automated blood neutrophils/100 leukocytes 68 % 42-75 Automated blood lymphocytes/100 leukocytes 22 % 12-44 Blood monocytes/100 leukocytes 9 % 0-12 Automated blood eosinophils/100 leukocytes 1 % 0-10 Automated blood basophils/100 leukocytes 0 % 0-10 Blood neutrophils automated count (number/volume) 5.1 10*3 1.8-7.8 Blood lymphocytes automated count (number/volume) 1.6 10*3 1.0-4.0 Blood monocytes automated count (number/volume) 0. 7 10*3 0.0-1.0 Automated eosinophil count 0.0 10*3/uL 0 .0-0.3 Automated blood basophil count (count/volume) 0.0 10*3/uL 0.0-0.1 Comprehensive metabolic panel - 07/24/17 05:45 Serum or plasma sodium measurement (moles/volume) 136 mmol/L 135-145 Serum or plasma potassium measurement (moles/volume) 3.9 mmol/L 3.6-5.0 Serum or plasma chloride measurement (moles/volume) 104 mmol/L 98-107 Carbon dioxide 24 mmol/L 21-32 Serum or plasma anion gap determination (moles/volume) 8 mmol/L 5-14 Serum or plasma urea nitrogen measurement (mass/volume ) 10 mg/dL 7-18 Serum or plasma creatinine measurement (mass/volume) 0.64 mg/dL 0.60-1.30 Serum or plasma urea nitrogen/creatinine mass ratio 16 NRG Serum or plasma creatinine measurement w ith calculation of estimated glomerular filtration rate > NRG Serum or plasma glucose measurement (mass/volume) 169 mg/dL 70-105 Serum or plasma calcium measurement (mass/volume) 8.6 mg/dL 8.5-10.1 Serum or plasma total bilirubin measurement (mass/volu me) 0.2 mg/dL 0.1-1.0 Serum or plasma alkaline phosphatase delmi surement (enzymatic activity/volume) 249 U/L 40-136 Serum or plasma aspartate aminotransfera se measurement (enzymatic activity/volume) 33 U/L 5-34 Serum or plasma alanine aminotransferase measurement (enzymatic activity/volume) 24 U/L 0-55 Serum or plasma protein measurement (mass/volume) 5.9 g/dL 6.4-8.2 Serum or plasma albumin measurement (mass/volume) 2.8 g/dL 3.2-4.5 Automated blood complete blood count (he mogram) panel - 07/26/17 09:15 Blood leukocytes automated count (number/volume) 8.0 10*3/uL 4.3-11.0 Blood erythrocytes automated count (number/volume) 3.16 10*6/uL 4.35-5.85 Venous blood hemoglobin measurement (mass/volume) 7.7 g/dL 13.3-17.7 Blood hematocrit (volume fraction) 25 % 40-54 Automated erythrocyte mean corpuscular volume 79 [ foz_us] 80-99 Automated erythrocyte mean corpuscular h emoglobin (mass per erythrocyte) 24 pg 25-34 Automated erythrocyte mean corpuscular h emoglobin concentration measurement (mass/volume) 31 g/dL 32-36 Automated erythrocyte distribution width ratio 15. 9 % 10.0- 14.5 Automated blood platelet count (count/volume) 613 10*3/uL 130-400 Automated blood platelet mean volume measurement 7.6 [foz_us] 7.4-10.4 Comprehensive metabolic panel - 07/26/17 09:15 Serum or plasma sodium measurement (moles/volume) 135 mmol/L 135-145 Serum or plasma potassium measurement (moles/volume) 4.0 mmol/L 3.6-5.0 Serum or plasma chloride measurement (moles/volume) 103 mmol/L 98-107 Carbon dioxide 24 mmol/L 21-32 Serum or plasma anion gap determination (moles/volume) 8 mmol/L 5-14 Serum or plasma urea nitrogen measurement (mass/volume ) 7 mg/dL 7-18 Serum or plasma creatinine measurement (mass/volume) 0.61 mg/dL 0.60-1.30 Serum or plasma urea nitrogen/creatinine mass ratio 11 NRG Serum or plasma creatinine measurement w ith calculation of estimated glomerular filtration rate > NRG Serum or plasma glucose measurement (mass/volume) 182 mg/dL 70-105 Serum or plasma calcium measurement (mass/volume) 8.6 mg/dL 8.5-10.1 Serum or plasma total bilirubin measurement (mass/volu me) 0.3 mg/dL 0.1-1.0 Serum or plasma alkaline phosphatase delmi surement (enzymatic activity/volume) 217 U/L 40-136 Serum or plasma aspartate aminotransfera se measurement (enzymatic activity/volume) 56 U/L 5-34 Serum or plasma alanine aminotransferase measurement (enzymatic activity/volume) 33 U/L 0-55 Serum or plasma protein measurement (mass/volume) 5.9 g/dL 6.4-8.2 Serum or plasma albumin measurement (mass/volume) 2.9 g/dL 3.2-4.5 IRON TEST - 07/26/17 09:15 Serum or plasma iron measurement (mass/volume) 23 % 40-180 Complete blood count (CBC) with automate d white blood cell (WBC) differential - 01/29/19 13:00 Blood leukocytes automated count (number/volume) 11.5 10*3/uL 4.3-11.0 Blood erythrocytes automated count (number/volume) 4.21 10*6/uL 4.35-5.85 Venous blood hemoglobin measurement (mass/volume) 11.4 g/dL 13.3-17.7 Blood hematocrit (volume fraction) 35 % 40-54 Automated erythrocyte mean corpuscular volume 83 [ foz_us] 80-99 Automated erythrocyte mean corpuscular h emoglobin (mass per erythrocyte) 27 pg 25-34 Automated erythrocyte mean corpuscular h emoglobin concentration measurement (mass/volume) 33 g/dL 32-36 Automated erythrocyte distribution width ratio 15. 7 % 10.0- 14.5 Automated blood platelet count (count/volume) 444 10*3/uL 130-400 Automated blood platelet mean volume measurement 8.0 [foz_us] 7.4-10.4 Automated blood neutrophils/100 leukocytes 69 % 42-75 Automated blood lymphocytes/100 leukocytes 20 % 12-44 Blood monocytes/100 leukocytes 9 % 0-12 Automated blood eosinophils/100 leukocytes 1 % 0-10 Automated blood basophils/100 leukocytes 0 % 0-10 Blood neutrophils automated count (number/volume) 7.9 10*3 1.8-7.8 Blood lymphocytes automated count (number/volume) 2.3 10*3 1.0-4.0 Blood monocytes automated count (number/volume) 1. 0 10*3 0.0-1.0 Automated eosinophil count 0.1 10*3/uL 0 .0-0.3 Automated blood basophil count (count/volume) 0.0 10*3/uL 0.0-0.1 Influenza virus A and B antigen detectio n - 01/29/19 13:00 FLU RESULT NEGATIVE FOR INFLUENZA A AND B ANTIGENS BY IA [facility] Comprehensive metabolic panel - 01/29/19 13:00 Serum or plasma sodium measurement (moles/volume) 131 mmol/L 135-145 Serum or plasma potassium measurement (moles/volume) 4.3 mmol/L 3.6-5.0 Serum or plasma chloride measurement (moles/volume) 94 mmol/L 98-107 Carbon dioxide 21 mmol/L 21-32 Serum or plasma anion gap determination (moles/volume) 16 mmol/L 5-14 Serum or plasma urea nitrogen measurement (mass/volume ) 14 mg/dL 7-18 Serum or plasma creatinine measurement (mass/volume) 0.69 mg/dL 0.60-1.30 Serum or plasma urea nitrogen/creatinine mass ratio 20 NRG Serum or plasma creatinine measurement w ith calculation of estimated glomerular filtration rate > NRG Serum or plasma glucose measurement (mass/volume) 139 mg/dL 70-105 Serum or plasma calcium measurement (mass/volume) 9.1 mg/dL 8.5-10.1 Serum or plasma total bilirubin measurement (mass/volu me) 0.3 mg/dL 0.1-1.0 Serum or plasma alkaline phosphatase delmi surement (enzymatic activity/volume) 72 U/L 40-136 Serum or plasma aspartate aminotransfera se measurement (enzymatic activity/volume) 15 U/L 5-34 Serum or plasma alanine aminotransferase measurement (enzymatic activity/volume) 10 U/L 0-55 Serum or plasma protein measurement (mass/volume) 7.1 g/dL 6.4-8.2 Serum or plasma albumin measurement (mass/volume) 3.9 g/dL 3.2-4.5 CALCIUM CORRECTED 9.2 mg/dL 8.5-10.1 TROPONIN T - 01/29/19 13:00 TROPONIN T 37 % <=15 Complete urinalysis with reflex to cultu re - 06/08/19 08:50 Urine color determination YELLOW NRG Urine clarity determination CLEAR NR G Urine pH measurement by test strip 7.0 5-9 Specific gravity of urine by test strip < 1.016-1.022 Urine protein assay by test strip, semi-quantitative NEGATIVE NEGATIVE Urine glucose detection by automated test strip NE GATIVE NEGATIVE Erythrocytes detection in urine sediment by light micr oscopy NEGATIVE NEGATIVE Urine ketones detection by automated test strip NE GATIVE NEGATIVE Urine nitrite detection by test strip NEGATIVE NEGATIVE Urine total bilirubin detection by test strip NEGA TIVE NEGATIVE Urine urobilinogen measurement by automated test strip (mass/volume) 0.2 mg/dL NORMAL Urine leukocyte esterase detection by dipstick TRA CE NEGATIVE Automated urine sediment erythrocyte cou nt by microscopy (number/high power field) NONE NRG Automated urine sediment leukocyte count by microscopy (number/high power field) [HPF] NRG Bacteria detection in urine sediment by light microsco py FEW NRG Crystals detection in urine sediment by light microsco py NONE NRG Casts detection in urine sediment by light microscopy NONE NRG Mucus detection in urine sediment by light microscopy NEGATIVE NRG Complete urinalysis with reflex to culture YES NRG Bacterial urine culture - 06/08/19 08:50 Bacterial urine culture [id number] NRG COLONY COUNT >100,000/ML NRG FTX;REPORTABLE UNKNOWN CLINICAL SIGNIFICANCE NRG FREE TEXT ENTRY 2 NO SUSCEPTIBILITY PERFORMED NRG Whole blood basic metabolic panel - 11/26 09:07 Serum or plasma sodium measurement (moles/volume) 135 mmol/L 135-145 Serum or plasma potassium measurement (moles/volume) 4.3 mmol/L 3.6-5.0 Serum or plasma chloride measurement (moles/volume) 96 mmol/L 98-107 Carbon dioxide 24 mmol/L 21-32 Serum or plasma anion gap determination (moles/volume) 15 mmol/L 5-14 Serum or plasma urea nitrogen measurement (mass/volume ) 15 mg/dL 7-18 Serum or plasma creatinine measurement (mass/volume) 0.70 mg/dL 0.60-1.30 Serum or plasma urea nitrogen/creatinine mass ratio 21 NRG Serum or plasma creatinine measurement w ith calculation of estimated glomerular filtration rate > NRG Serum or plasma glucose measurement (mass/volume) 147 mg/dL 70-105 Serum or plasma calcium measurement (mass/volume) 9.3 mg/dL 8.5-10.1 Prostate specific ag [mass/volume] in se rum or plasma - 06/08/19 09:07 PSA EQUIMOLAR (AMELIA) 1.20 % 0.00-4.0 0 PATIENT ID APPROVAL TIQ DOCUMENTATION - 07/19/19 11:00 COMMENT NRG CONTACT LOAUNN COREY MD NRG TESTS AFFECTED MICROALBUMIN NRG LIPID PANEL - 10/18/19 09:12 CHOLESTEROL, TOTAL 123 mg/dL <200 HDL CHOLESTEROL 58 mg/dL >40 TRIGLYCERIDES 66 mg/dL <150 LDL-CHOLESTEROL 50 mg/dL (calc) NRG CHOL/HDLC RATIO 2.1 (calc) <5.0 NON HDL CHOLESTEROL 65 mg/dL (calc) <130 CMP - 10/18/19 09:12 GLUCOSE 136 mg/dL 65-99 UREA NITROGEN (BUN) 15 mg/dL 7-25 CREATININE 0.74 mg/dL 0.70-1.18 eGFR NON-AFR. [place] 93 mL/min/1.73m2 > OR = 60 eGFR 108 mL/min/1.73m2 > OR = 60 BUN/CREATININE RATIO NOT APPLICABLE (calc) 6-22 SODIUM 133 mmol/L 135-146 POTASSIUM 4.5 mmol/L 3.5-5.3 CHLORIDE 102 mmol/L 98-110 CARBON DIOXIDE 23 mmol/L 20-32 CALCIUM 8.9 mg/dL 8.6-10.3 PROTEIN, TOTAL 6.5 g/dL 6.1-8.1 ALBUMIN 3.9 g/dL 3.6-5.1 GLOBULIN 2.6 g/dL (calc) 1.9-3.7 ALBUMIN/GLOBULIN RATIO 1.5 (calc) 1.0-2. 5 BILIRUBIN, TOTAL 0.3 mg/dL 0.2-1.2 ALKALINE PHOSPHATASE 105 U/L 40-115 AST 10 U/L 10-35 ALT 12 U/L 9-46 CBC w/MANUAL DIFF - 10/18/19 09:12 WHITE BLOOD CELL COUNT 8.9 Thousand/uL 3 .8-10.8 RED BLOOD CELL COUNT 4.28 Million/uL 4.2 0-5.80 HEMOGLOBIN 11.8 g/dL 13.2-17.1 HEMATOCRIT 34.4 % 38.5-50.0 MCV 80.4 fL 80.0-100.0 MCH 27.6 pg 27.0-33.0 MCHC 34.3 g/dL 32.0-36.0 RDW 14.3 % 11.0-15.0 PLATELET COUNT 428 Thousand/uL 140-400 MPV 8.3 fL 7.5-12.5 ABSOLUTE NEUTROPHILS 6230 cells/uL 1500- 7800 ABSOLUTE MONOCYTES 712 cells/uL 200-950 ABSOLUTE EOSINOPHILS 0 cells/uL 15-500 ABSOLUTE BASOPHILS 89 cells/uL 0-200 NEUTROPHILS 70.0 % NRG LYMPHOCYTES 21.0 % NRG MONOCYTES 8.0 % NRG EOSINOPHILS 0 % NRG BASOPHILS 1.0 % NRG ABSOLUTE LYMPHOCYTES 1869 cells/uL 850-3 900 PLATELET ESTIMATION INCREASED ADEQUATE COMMENT(S) NRG Complete urinalysis with reflex to cultu re - 12/18/19 12:00 Urine color determination YELLOW NRG Urine clarity determination CLOUDY NR G Urine pH measurement by test strip 7.0 5-9 Specific gravity of urine by test strip 1.010 1.016-1.022 Urine protein assay by test strip, semi-quantitative NEGATIVE NEGATIVE Urine glucose detection by automated test strip NE GATIVE NEGATIVE Erythrocytes detection in urine sediment by light micr oscopy TRACE NEGATIVE Urine ketones detection by automated test strip NE GATIVE NEGATIVE Urine nitrite detection by test strip NEGATIVE NEGATIVE Urine total bilirubin detection by test strip NEGA TIVE NEGATIVE Urine urobilinogen measurement by automated test strip (mass/volume) 0.2 mg/dL < = 1.0 Urine leukocyte esterase detection by dipstick 3+ NEGATIVE Automated urine sediment erythrocyte cou nt by microscopy (number/high power field) RARE NRG Automated urine sediment leukocyte count by microscopy (number/high power field) > [HPF] NRG Bacteria detection in urine sediment by light microsco py MODERATE NRG Squamous epithelial cells detection in u rine sediment by light microscopy RARE NRG Crystals detection in urine sediment by light microsco py NONE NRG Casts detection in urine sediment by light microscopy NONE NRG Mucus detection in urine sediment by light microscopy NONE NRG Complete urinalysis with reflex to culture YES NRG Comprehensive metabolic panel - 12/18/19 12:00 Serum or plasma sodium measurement (moles/volume) 132 mmol/L 135-145 Serum or plasma potassium measurement (moles/volume) 4.1 mmol/L 3.6-5.0 Serum or plasma chloride measurement (moles/volume) 93 mmol/L 98-107 Carbon dioxide 24 mmol/L 21-32 Serum or plasma anion gap determination (moles/volume) 15 mmol/L 5-14 Serum or plasma urea nitrogen measurement (mass/volume ) 17 mg/dL 7-18 Serum or plasma creatinine measurement (mass/volume) 0.72 mg/dL 0.60-1.30 Serum or plasma urea nitrogen/creatinine mass ratio 24 NRG Serum or plasma creatinine measurement w ith calculation of estimated glomerular filtration rate > NRG Serum or plasma glucose measurement (mass/volume) 103 mg/dL 70-105 Serum or plasma calcium measurement (mass/volume) 9.3 mg/dL 8.5-10.1 Serum or plasma total bilirubin measurement (mass/volu me) 0.3 mg/dL 0.1-1.0 Serum or plasma alkaline phosphatase delmi surement (enzymatic activity/volume) 70 U/L 40-136 Serum or plasma aspartate aminotransfera se measurement (enzymatic activity/volume) 14 U/L 5-34 Serum or plasma alanine aminotransferase measurement (enzymatic activity/volume) 7 U/L 0-55 Serum or plasma protein measurement (mass/volume) 7.1 g/dL 6.4-8.2 Serum or plasma albumin measurement (mass/volume) 4.0 g/dL 3.2-4.5 CALCIUM CORRECTED 9.3 mg/dL 8.5-10.1 Magnesium - 12/18/19 12:00 Magnesium 1.7 mg/dL 1.6-2.4 DILANTIN (PHENYTOIN) - 12/18/19 12:00 DILANTIN PHEN 32.5 % 10.0-20.0 Bacterial urine culture - 12/18/19 12:00 Bacterial urine culture [id number] NRG COLONY COUNT >100,000/ML NRG FTX;REPORTABLE SEE COMMENT NRG Complete urinalysis with reflex to cultu re - 01/26/20 20:20 Urine color determination YELLOW NRG Urine clarity determination CLEAR NR G Urine pH measurement by test strip 7.0 5-9 Specific gravity of urine by test strip <= 1.016-1.022 Urine protein assay by test strip, semi-quantitative NEGATIVE NEGATIVE Urine glucose detection by automated test strip NE GATIVE NEGATIVE Erythrocytes detection in urine sediment by light micr oscopy NEGATIVE NEGATIVE Urine ketones detection by automated test strip NE GATIVE NEGATIVE Urine nitrite detection by test strip NEGATIVE NEGATIVE Urine total bilirubin detection by test strip NEGA TIVE NEGATIVE Urine urobilinogen measurement by automated test strip (mass/volume) 0.2 mg/dL < = 1.0 Urine leukocyte esterase detection by dipstick TRA CE NEGATIVE Automated urine sediment erythrocyte cou nt by microscopy (number/high power field) NONE NRG Automated urine sediment leukocyte count by microscopy (number/high power field) [HPF] NRG Bacteria detection in urine sediment by light microsco py MODERATE NRG Squamous epithelial cells detection in u rine sediment by light microscopy NONE NRG Crystals detection in urine sediment by light microsco py NONE NRG Casts detection in urine sediment by light microscopy NONE NRG Mucus detection in urine sediment by light microscopy NONE NRG Complete urinalysis with reflex to culture YES NRG Bacterial urine culture - 01/26/20 20:20 Bacterial urine culture [id number] NRG COLONY COUNT >100,000/ML NRG SUSCEPTIBILITY NOT CORYNEBACTERIUM UREALYTICUM NRG MRSA SCREEN SEE COMMENT [facility] Complete blood count (CBC) with automate d white blood cell (WBC) differential - 01/26/20 20:27 Blood leukocytes automated count (number/volume) 7.3 10*3/uL 4.3-11.0 Blood erythrocytes automated count (number/volume) 4.12 10*6/uL 4.35-5.85 Venous blood hemoglobin measurement (mass/volume) 11.3 g/dL 13.3-17.7 Blood hematocrit (volume fraction) 34 % 40-54 Automated erythrocyte mean corpuscular volume 83 [ foz_us] 80-99 Automated erythrocyte mean corpuscular h emoglobin (mass per erythrocyte) 27 pg 25-34 Automated erythrocyte mean corpuscular h emoglobin concentration measurement (mass/volume) 33 g/dL 32-36 Automated erythrocyte distribution width ratio 16. 1 % 10.0- 14.5 Automated blood platelet count (count/volume) 359 10*3/uL 130-400 Automated blood platelet mean volume measurement 7.7 [foz_us] 7.4-10.4 Automated blood neutrophils/100 leukocytes 64 % 42-75 Automated blood lymphocytes/100 leukocytes 26 % 12-44 Blood monocytes/100 leukocytes 1 % 0-12 Automated blood eosinophils/100 leukocytes 0 % 0-10 Automated blood basophils/100 leukocytes 0 % 0-10 Blood neutrophils automated count (number/volume) 4.7 10*3 1.8-7.8 Blood lymphocytes automated count (number/volume) 1.9 10*3 1.0-4.0 Blood monocytes automated count (number/volume) 0. 6 10*3 0.0-1.0 Automated eosinophil count 0.1 10*3/uL 0 .0-0.3 Automated blood basophil count (count/volume) 0.0 10*3/uL 0.0-0.1 Comprehensive metabolic panel - 01/26/20 20:27 Serum or plasma sodium measurement (moles/volume) 129 mmol/L 135-145 Serum or plasma potassium measurement (moles/volume) 4.3 mmol/L 3.6-5.0 Serum or plasma chloride measurement (moles/volume) 95 mmol/L 98-107 Carbon dioxide 21 mmol/L 21-32 Serum or plasma anion gap determination (moles/volume) 13 mmol/L 5-14 Serum or plasma urea nitrogen measurement (mass/volume ) 13 mg/dL 7-18 Serum or plasma creatinine measurement (mass/volume) 0.65 mg/dL 0.60-1.30 Serum or plasma urea nitrogen/creatinine mass ratio 20 NRG Serum or plasma creatinine measurement w ith calculation of estimated glomerular filtration rate > NRG Serum or plasma glucose measurement (mass/volume) 95 mg/dL 70-105 Serum or plasma calcium measurement (mass/volume) 9.1 mg/dL 8.5-10.1 Serum or plasma total bilirubin measurement (mass/volu me) 0.3 mg/dL 0.1-1.0 Serum or plasma alkaline phosphatase delmi surement (enzymatic activity/volume) 64 U/L 40-136 Serum or plasma aspartate aminotransfera se measurement (enzymatic activity/volume) 12 U/L 5-34 Serum or plasma alanine aminotransferase measurement (enzymatic activity/volume) 6 U/L 0-55 Serum or plasma protein measurement (mass/volume) 6.9 g/dL 6.4-8.2 Serum or plasma albumin measurement (mass/volume) 4.0 g/dL 3.2-4.5 CALCIUM CORRECTED 9.1 mg/dL 8.5-10.1 Serum or plasma creatine kinase measurem ent (enzymatic activity/volume) - 01/26/20 20:27 Serum or plasma creatine kinase measurem ent (enzymatic activity/volume) 24 U/L 30-200 DILANTIN (PHENYTOIN) - 01/26/20 20:27 DILANTIN PHEN 15.5 % 10.0-20.0 Encounters ACCT No. Visit Date/Time Discharge Status Pt. Type Provider Facility Loc./Unit Complaint [id number] 10/18/2019 10:45:00 10/18/2019 23:59: 59 CLS Outpatient [facility] [id number] 10/18/2019 10:45:00 Document Registration [id number] 07/19/2019 10:15:00 Document Registration [id number] 01/26/2020 19:25:00 22:16:00 DIS Outpatient SAY TINSLEY, ISABELLA [facility] ER FS SEIZURE [id number] 12/18/2019 12:30:00 23:59:59 CLS Outpatient LOUANN COREY MD [facility] IHC CMP UA [id number] 06/08/2019 08:50:00 23:59:59 CLS Outpatient NIKOS TINSLEY, ALBERT Alvarez [facility] LAB FS N40.1 [id number] 06/05/2019 17:54:00 19:39:00 DIS Emergency CHICHI CARDENAS DO [facility] ER FS PT FELL AT HOME [id number] 01/29/2019 12:42:00 019 17:15:00 DIS Emergency EWELINA SYL Palak [facility] ER FS CHEST PAIN [id number] 07/23/2017 06:25:00 017 14:15:00 DIS Inpatient JEVON MCMILLAN CARLOS [facility] 4TH HIP FRACTURE [id number] 04/22/2017 14:30:00 017 14:40:00 DIS Inpatient CARLOS ESCOTO DO, V [facility] 4TH HYPONATREMIA COMPLICATE D UTI [id number] 03/11/2017 09:51:00 017 10:10:00 DIS Inpatient GREGORIA TINSLEY, RON Paulson [facility] IRF DISPLACED INTERTROCHANT RON FX LEFT FEMUR [id number] 03/07/2017 21:00:00 017 09:43:00 DIS Inpatient SARY MCCRARY DO F [facility] 4TH L HIP FRACTURE; SEIZUR E DISORDER; CAD [id number] 01/12/2013 10:45:00 Document Registration [id number] 12/28/2012 12:32:00 Document Registration [id number] 09/21/2012 12:42:00 Document Registration [id number] 09/15/2012 11:36:00 Document Registration
--- NOTE | 2020-02-16 11:57 | ED GU-Male ---
General Stated Complaint: HEMATURIA History of Present Illness Date Seen by Provider: Feb 16, 2020 Time Seen by Provider: 11:52 Initial Comments Patient presenting to emergency department for evaluation of hematuria that was first noted this morning. He has urologic history that sounds as if he has a neurogenic bladder as he is able to urinate some during the day but he self catheterizes every evening. He says yesterday he had more difficulty getting a sample as he inserted his catheter and got some urine but then it stopped and then he inserted more deeply and felt some discomfort but then was able to get more urine out. He noted dark red blood when he urinated today but no clots. Looking at his medication list appears that he is on Plavix. He was unsure why he is on Plavix. He denies any abdominal pain back pain fevers chills nausea vomiting. He is in no obvious distress with normal vital signs. Allergies and Home Medications Allergies Coded Allergies: Penicillins (Verified Allergy, Unknown, 04/22/17) diazepam (Unverified Allergy, Unknown, 03/07/17) doxycycline (Unverified Allergy, Unknown, RASH, 03/07/17) phenobarbital (Unverified Allergy, Unknown, 03/07/17) RELAXES ME TOO MUCH piperacillin (Unverified Allergy, Unknown, RASH, PT HAS RECEIVED CEFAZOLIN IN THE PAST W/O ISSUE, 03/08/17) sulfamethoxazole (Verified Allergy, Unknown, 04/22/17) terazosin (Unverified Allergy, Unknown, 03/07/17) CHEST PAIN Home Medications Albuterol Sulfate 1 Puff Puff, 2 PUFF INH Q4H PRN for SHORTNESS OF BREATH, (Reported) Aspirin 81 Mg Tablet.dr, 81 MG PO DAILY, (Reported) Bethanechol Chloride 25 Mg Tablet, 25 MG PO QID, (Reported) Cephalexin 500 Mg Capsule, 500 MG PO QID Prescribed by: ISABELLA DEAL on 01/26/202201 Clopidogrel Bisulfate 75 Mg Tablet, 75 MG PO DAILY, (Reported) Ezetimibe 10 Mg Tablet, 10 MG PO HS, (Reported) Fenofibrate Nanocrystallized 145 Mg Tablet, 145 MG PO DAILY, (Reported) Fentanyl 1 Each Patch.td72, 50 MCG TD Q72H Prescribed by: CARLOS ESCOTO on 07/26/17 0946 Ferrous Sulfate 325 Mg Tablet, 325 MG PO DAILY Prescribed by: CARLOS ESCOTO on 07/26/17945 Fluoxetine HCl 20 Mg Capsule, 40 MG PO DAILY, (Reported) TAKES 2 (20MG) CAPSULES Fluticasone Propionate 1 Ea Aero, 1 PUFF INH BID, (Reported) Fluticasone Propionate 16 Gm [place].susp, 2 SPRAYS NS DAILY, (Reported) Gabapentin 300 Mg Capsule, 300 MG PO HS, (Reported) Isosorbide Mononitrate 60 Mg Tab, 60 MG PO BID, (Reported) Lactulose 20 Gm/30 Ml Solution, 10 GM PO BID Prescribed by: CARLOS ESCOTO on 07/26/17946 Lorazepam 1 Mg Tablet, 1 MG PO BID, (Reported) Multivitamin 1 Each Capsule, 1 CAP PO DAILY, (Reported) Nitroglycerin 0.4 Mg Tab.subl, 0.4 MG SL UD PRN for CHEST PAIN, (Reported) Olanzapine 2.5 Mg Tablet, 2.5 MG PO HS, (Reported) Oxycodone HCl 20 Mg Tab.er.12h, 20 MG PO BID Prescribed by: CARLOS ESCOTO on 07/26/17945 Oxycodone HCl/Acetaminophen 1 Each Tablet, 1 TAB PO Q4H PRN for BREAKTHROUGH PAIN Prescribed by: CARLOS ESCOTO on 07/26/17945 Phenytoin Sodium Extended 100 Mg Capsule, 200 MG PO BID, (Reported) TAKES 2 (100MG) CAPSULES Pioglitazone HCl 30 Mg Tablet, 30 MG PO DAILY, (Reported) Ramipril 10 Mg Capsule, 10 MG PO DAILY, (Reported) Ranitidine HCl 150 Mg Tablet, 150 MG PO HS, (Reported) Sennosides/Docusate Sodium 1 Each Tablet, 1 EA PO BID Prescribed by: CARLOS ESCOTO on 07/26/17946 Simvastatin 40 Mg Tablet, 40 MG PO 1800, (Reported) Tamsulosin HCl 0.4 Mg Cap, 0.4 MG PO HS, (Reported) Temazepam 7.5 Mg Capsule, 7.5 MG PO HS PRN for INSOMNIA, (Reported) Timolol 5 Ml Drops, 1 DROP OU BID, (Reported) 0.5% Trazodone HCl 50 Mg Tablet, 50 MG PO HS, (Reported) Patient Home Medication List Home Medication List Reviewed: Yes Review of Systems Review of Systems Constitutional: no symptoms reported EENTM: no symptoms reported Respiratory: no symptoms reported Cardiovascular: no symptoms reported Gastrointestinal: no symptoms reported Genitourinary: hematuria Musculoskeletal: no symptoms reported Skin: no symptoms reported All Other Systemes Reviewed Negative Unless Noted: Yes Past [id number]-[id number] Hx Patient Social History Type Used: Cigarettes 2nd Hand Smoke Exposure: Yes Recent Foreign Travel: Yes Recent Hopitalizations: No Immunizations Up To Date Date of Pneumonia Vaccine: Nov 08, 2016 Date of Influenza Vaccine: Aug 08, 2012 Seasonal Allergies Seasonal Allergies: No Past Medical History Surgeries: Yes Appendectomy, Cardiac, CABG, Coronary Stent, Gallbladder, Orthopedic, Penile Implant, Renal, Transurethral Resection Respiratory: Yes Asthma, COPD, Emphysema Currently Using CPAP: No Currently Using BIPAP: No Cardiac: Yes (CABG [place] 1999; 16 CARDIAC STENTS) Coronary Artery Disease, High Cholesterol, Hypertension Neurological: Yes Headaches /Migraines, Seizure Disorder Reproductive Disorders: Yes (ED--PENILE IMPLANT) Sexually Transmitted Disease: No HIV/AIDS: No Genitourinary: Yes Benign Prostatic Hyperpl, Kidney Stones Gastrointestinal: Yes Gastroesophageal Reflux, Ulcer Musculoskeletal: Yes Arthritis Endocrine: Yes Diabetes, Non-Insulin dep HEENT: Yes Cataract, Glaucoma Loss of Vision: Denies Hearing Impairment: Hard of Hearing Cancer: No Psychosocial: Yes Anxiety, Bipolar, Depression Integumentary: No Blood Disorders: No Adverse Reaction/Blood Tranf: No Family Medical History Patient reports no known family medical history. Physical Exam Vital Signs Vital Signs - First Documented 02/16/20 12:00 Pulse 79 Resp 20 B/P (MAP) 134/67 (89) Pulse Ox 97 O2 Delivery Room Air Capillary Refill : Height, Weight, BMI Height: 5'5.00" Weight: 160lbs. 15.4oz. 73.500930yd; 28.00 BMI Method:Estimated General Appearance: no apparent distress Cardiovascular: regular rate, rhythm Respiratory: no respiratory distress Gastrointestinal: non tender Male: other (penile implant. BRB after sanchez insertion) Neurologic/Psychiatric: alert, oriented x 3 Progress/Results/Core Measures Suspected Sepsis SIRS Temperature: Pulse: Respiratory Rate: Laboratory Tests 02/16/20 11:45: White Blood Count 13.0H Blood Pressure / Mean: Laboratory Tests 02/16/20 11:45: Creatinine 0.68, INR Comment 1.1, Platelet Count 382, Total Bilirubin 0.3 Results/Orders Lab Results Laboratory Tests Test 02/16/20 11:45 02/16/20 12:51 Range/Units White Blood Count 13.0 H 4.3-11.0 10^3/uL Red Blood Count 4.04 L 4.35-5.85 10^6/uL Hemoglobin 11.3 L 13.3-17.7 G/DL Hematocrit 33 L 40-54 % Mean Corpuscular Volume 83 80-99 FL Mean Corpuscular Hemoglobin 28 25-34 PG Mean Corpuscular Hemoglobin Concent 34 32-36 G/DL Red Cell Distribution Width 15.9 H 10.0-14.5 % Platelet Count 382 130-400 10^3/uL Mean Platelet Volume 7.9 7.4-10.4 FL Neutrophils (%) (Auto) 82 H 42-75 % Lymphocytes (%) (Auto) 10 L 12-44 % Monocytes (%) (Auto) 7 0-12 % Eosinophils (%) (Auto) 0 0-10 % Basophils (%) (Auto) 0 0-10 % Neutrophils # (Auto) 10.7 H 1.8-7.8 X 10^3 Lymphocytes # (Auto) 1.3 1.0-4.0 X 10^3 Monocytes # (Auto) 0.9 0.0-1.0 X 10^3 Eosinophils # (Auto) 0.0 0.0-0.3 10^3/uL Basophils # (Auto) 0.0 0.0-0.1 10^3/uL Prothrombin Time 14.8 H 12.2-14.7 SEC INR Comment 1.1 0.8-1.4 Activated Partial Thromboplast Time 41 H 24-35 SEC Sodium Level 129 L 135-145 MMOL/L Potassium Level 4.5 3.6-5.0 MMOL/L Chloride Level 96 L 98-107 MMOL/L Carbon Dioxide Level 22 21-32 MMOL/L Anion Gap 11 5-14 MMOL/L Blood Urea Nitrogen 17 7-18 MG/DL Creatinine 0.68 0.60-1.30 MG/DL Estimat Glomerular Filtration Rate > 60 BUN/Creatinine Ratio 25 Glucose Level 123 H 70-105 MG/DL Calcium Level 8.8 8.5-10.1 MG/DL Corrected Calcium 8.9 8.5-10.1 MG/DL Total Bilirubin 0.3 0.1-1.0 MG/DL Aspartate Amino Transf (AST/SGOT) 14 5-34 U/L Alanine Aminotransferase (ALT/SGPT) 7 0-55 U/L Alkaline Phosphatase 59 40-136 U/L Total Protein 6.4 6.4-8.2 GM/DL Albumin 3.9 3.2-4.5 GM/DL My Orders Orders - SIRIA PAIGE DO Cbc With Automated Diff (02/16/20 11:39) Comprehensive Metabolic Panel (02/16/20 11:39) Partial Thromboplastin Time (02/16/20 11:39) Protime With Inr (02/16/20 11:39) Ua Culture If Indicated (02/16/20 11:39) Vital Signs/I&O 02/16/20 12:00 Pulse 79 Resp 20 B/P (MAP) 134/67 (89) Pulse Ox 97 O2 Delivery Room Air Capillary Refill : Progress Note : Progress Note Three-way catheter inserted and we will start by irrigating 3 L of saline and see if it clears and then I will try and speak to his urologist Dr. Pena. Urine completely cleared and he has no further hematuria after bladder irrigation. I was able to get a hold of Dr. Pena and told him about his presentation and workup and labs and he recommended leaving the Sanchez catheter in today and then tomorrow afternoon if he still has no hematuria patient can remove the Sanchez catheter himself. I told patient these instructions and Dr. Baum also recomm ended he hold his Plavix tomorrow as he already took his plavix today. I told patient to leave the catheter in if he sees hematuria tomorrow and to hold his Plavix until his urine is completely clear and to leave the catheter in until he is cleared as well. I told him if he cannot figure out how to remove the Sanchez catheter despite her instructions he would need to return to the emergency department or be had worsening pain fevers or other concerns to return to the emergency department. Patient aware and agreeable with plan for discharge and verbalized understanding of the need for short-term follow-up and strict ED return precautions discussed as above. Departure Impression Primary Impression: Hematuria Qualified Codes: R31.0 - Gross hematuria Disposition: 01 HOME, SELF-CARE Condition: Stable Departure-Patient Inst. Referrals: LOUANN COREY MD (PCP/Family) Primary Care Physician Patient Instructions: Blood in the Urine (Hematuria), Adult (DC) Add. Discharge Instructions: Take sanchez cat out tomorrow if urine stays clear. If still bloody leave it in. Hold your plavix until your urine is no longer bloody. Do not take it tomorrow for sure. Follow with Dr. Pena, call his clinic for follow up. SIRIA PAIGE DO Feb 16, 2020 11:57
[2020-02-16 11:58] LABS: BASOPHILS % (AUTO) 0 % (0-10); EOSINOPHILS % (AUTO) 0 % (0-10); HEMATOCRIT 33 % (40-54); HEMOGLOBIN 11.3 G/DL (13.3-17.7); LYMPHOCYTES # (AUTO) 1.3 X 10^3 (1.0-4.0); LYMPHOCYTES % (AUTO) 10 % (12-44); MEAN CORPUSCULAR HEMOGLOBIN 28 PG (25-34); MEAN CORPUSCULAR HGB CONC 34 G/DL (32-36); MEAN CORPUSCULAR VOLUME 83 FL (80-99); MEAN PLATELET VOLUME 7.9 FL (7.4-10.4); MONOCYTES # (AUTO) 0.9 X 10^3 (0.0-1.0); MONOCYTES % (AUTO) 7 % (0-12); NEUTROPHILS # (AUTO) 10.7 X 10^3 (1.8-7.8); NEUTROPHILS % (AUTO) 82 % (42-75); PLATELET COUNT 382 10^3/uL (130-400); RED CELL DISTRIBUTION WIDTH 15.9 % (10.0-14.5)
[2020-02-16 12:11] LABS: INR 1.1 (0.8-1.4); PROTHROMBIN TIME PATIENT 14.8 SEC (12.2-14.7)
[2020-02-16 12:12] LABS: ALANINE AMINOTRANSFERASE 7 U/L (0-55); ALBUMIN 3.9 GM/DL (3.2-4.5); ALKALINE PHOSPHATASE 59 U/L (40-136); BILIRUBIN,TOTAL 0.3 MG/DL (0.1-1.0); BUN/CREATININE RATIO 25; CALCIUM 8.8 MG/DL (8.5-10.1); CARBON DIOXIDE 22 MMOL/L (21-32); CHLORIDE 96 MMOL/L (98-107); CREATININE SERUM 0.68 MG/DL (0.60-1.30); GFR ESTIMATED > 60; GLUCOSE 123 MG/DL (70-105); POTASSIUM 4.5 MMOL/L (3.6-5.0); SODIUM 129 MMOL/L (135-145); TOTAL PROTEIN 6.4 GM/DL (6.4-8.2)
[2020-02-16 13:01] LABS: GLUCOSE, URINE (UA) NEGATIVE (NEGATIVE); PH,URINE 6.5 (5-9); PROTEIN,URINE 2+ (NEGATIVE)
[2020-02-16 13:02] LABS: BILIRUBIN,URINE NEGATIVE (NEGATIVE); CLARITY,URINE CLOUDY; COLOR,URINE RED; KETONES,URINE NEGATIVE (NEGATIVE); LEUKOCYTE ESTERASE ,URINE 2+ (NEGATIVE); NITRITE,URINE NEGATIVE (NEGATIVE); RBC,URINE >100 /HPF; WBC,URINE 25-50 /HPF
[2020-02-16 13:03] LABS: BACTERIA,URINE TRACE /HPF
[2020-02-16] MEDS ORDERED: CEPH-507 PO (13:08)
[2020-02-16 13:14] VITALS: BP 122/76
== END 2020-02-16 13:14 | disposition home or self-care (01) ==
LOC: EDUNIT# 11:23 → ER FS 11:29
DX: R31.9 Hematuria, unspecified (principal); J43.9 Emphysema, unspecified; I10 Essential (primary) hypertension; E11.9 Type 2 diabetes mellitus without complications; I25.10 Atherosclerotic heart disease of native coronary artery without angina pectoris; E78.00 Pure hypercholesterolemia, unspecified; G40.909 Epilepsy, unspecified, not intractable, without status epilepticus; K21.9 Gastro-esophageal reflux disease without esophagitis; F41.9 Anxiety disorder, unspecified; F31.9 Bipolar disorder, unspecified; Z95.5 Presence of coronary angioplasty implant and graft; Z95.1 Presence of aortocoronary bypass graft; Z88.0 Allergy status to penicillin; Z88.1 Allergy status to other antibiotic agents; Z88.2 Allergy status to sulfonamides; Z79.82 Long term (current) use of aspirin; Z79.02 Long term (current) use of antithrombotics/antiplatelets; Z79.51 Long term (current) use of inhaled steroids; Z77.22 Contact with and (suspected) exposure to environmental tobacco smoke (acute) (chronic)
CPT/HCPCS: 36415; 51702; 80053; 81000; 85025; 85610; 85730; 87088

== ENCOUNTER 2020-02-17 09:04 | Emergency (ER) | payer MEDICARE, MEDICAID ==
[~2020-02-17] VITALS: Ht 157.4 cm; Wt 77.0 kg
[2020-02-17] MEDS ORDERED: NS IV 500 ML 500 ML IV ONE (09:11)
[2020-02-17] MEDS ORDERED: fentaNYL INJECTION 100 MCG/2 ML AMP IVP ONE (09:15)
--- NOTE | 2020-02-17 09:26 | ED Fall/Injury ---
General Stated Complaint: FALL Source: patient, EMS Exam Limitations: no limitations History of Present Illness Date Seen by Provider: Feb 17, 2020 Time Seen by Provider: 09:08 Initial Comments Patient arrives by EMS from home with chief complaint that about an hour prior to arrival he was getting up from bed and trying to bend over to drain his urine bag when he lost his balance and fell forward striking his right shoulder and right hip. He denies loss of consciousness. He denies striking his head. He denies use of blood thinners. He had Ull[place] catheter placed yesterday secondary to some urinary retention and bleeding after a prostate biopsy. He is complaining of pain in his low right back and right hip about a 9 out of 10. He has not taken anything or was given anything en route. He has no prior history of fracture. He said it took about an hour to crawl from the bedroom to get his life alert dependent. He does use Plavix. Allergies and Home Medications Allergies Coded Allergies: Penicillins (Verified Allergy, Unknown, 04/22/17) diazepam (Unverified Allergy, Unknown, 03/07/17) doxycycline (Unverified Allergy, Unknown, RASH, 03/07/17) phenobarbital (Unverified Allergy, Unknown, 03/07/17) RELAXES ME TOO MUCH piperacillin (Unverified Allergy, Unknown, RASH, PT HAS RECEIVED CEFAZOLIN IN THE PAST W/O ISSUE, 03/08/17) sulfamethoxazole (Verified Allergy, Unknown, 04/22/17) terazosin (Unverified Allergy, Unknown, 03/07/17) CHEST PAIN Home Medications Albuterol Sulfate 1 Puff Puff, 2 PUFF INH Q4H PRN for SHORTNESS OF BREATH, (Reported) Aspirin 81 Mg Tablet.dr, 81 MG PO DAILY, (Reported) Bethanechol Chloride 25 Mg Tablet, 25 MG PO QID, (Reported) Cephalexin 500 Mg Capsule, 500 MG PO QID Prescribed by: ISABELLA DEAL on 01/26/202201 Cephalexin 500 Mg Capsule, 500 MG PO BID Prescribed by: SIRIA PAIGE on 02/16/20 1308 Clopidogrel Bisulfate 75 Mg Tablet, 75 MG PO DAILY, (Reported) Ezetimibe 10 Mg Tablet, 10 MG PO HS, (Reported) Fenofibrate Nanocrystallized 145 Mg Tablet, 145 MG PO DAILY, (Reported) Fentanyl 1 Each Patch.td72, 50 MCG TD Q72H Prescribed by: CARLOS ESCOTO on 07/26/17945 Ferrous Sulfate 325 Mg Tablet, 325 MG PO DAILY Prescribed by: CARLOS ESCOTO on 07/26/17945 Fluoxetine HCl 20 Mg Capsule, 40 MG PO DAILY, (Reported) TAKES 2 (20MG) CAPSULES Fluticasone Propionate 1 Ea Aero, 1 PUFF INH BID, (Reported) Fluticasone Propionate 16 Gm [place].susp, 2 SPRAYS NS DAILY, (Reported) Gabapentin 300 Mg Capsule, 300 MG PO HS, (Reported) Isosorbide Mononitrate 60 Mg Tab, 60 MG PO BID, (Reported) Lactulose 20 Gm/30 Ml Solution, 10 GM PO BID Prescribed by: CARLOS ESCOTO on 07/26/17946 Lorazepam 1 Mg Tablet, 1 MG PO BID, (Reported) Multivitamin 1 Each Capsule, 1 CAP PO DAILY, (Reported) Nitroglycerin 0.4 Mg Tab.subl, 0.4 MG SL UD PRN for CHEST PAIN, (Reported) Olanzapine 2.5 Mg Tablet, 2.5 MG PO HS, (Reported) Oxycodone HCl 20 Mg Tab.er.12h, 20 MG PO BID Prescribed by: CARLOS ESCOTO on 07/26/17945 Oxycodone HCl/Acetaminophen 1 Each Tablet, 1 TAB PO Q4H PRN for BREAKTHROUGH PAIN Prescribed by: CARLOS ESCOTO on 07/26/17945 Phenytoin Sodium Extended 100 Mg Capsule, 200 MG PO BID, (Reported) TAKES 2 (100MG) CAPSULES Pioglitazone HCl 30 Mg Tablet, 30 MG PO DAILY, (Reported) Ramipril 10 Mg Capsule, 10 MG PO DAILY, (Reported) Ranitidine HCl 150 Mg Tablet, 150 MG PO HS, (Reported) Sennosides/Docusate Sodium 1 Each Tablet, 1 EA PO BID Prescribed by: CARLOS ESCOTO on 07/26/17946 Simvastatin 40 Mg Tablet, 40 MG PO 1800, (Reported) Tamsulosin HCl 0.4 Mg Cap, 0.4 MG PO HS, (Reported) Temazepam 7.5 Mg Capsule, 7.5 MG PO HS PRN for INSOMNIA, (Reported) Timolol 5 Ml Drops, 1 DROP OU BID, (Reported) 0.5% Trazodone HCl 50 Mg Tablet, 50 MG PO HS, (Reported) Patient Home Medication List Home Medication List Reviewed: Yes Review of Systems Review of Systems Constitutional: No chills, No fever Eyes: Denies Blindness, Denies Drainage Ears, Nose, Mouth, Throat: denies ear pain, denies ear discharge Respiratory: No cough, No short of breath Cardiovascular: No chest pain, No edema Gastrointestinal: No abdominal pain, No constipation, No diarrhea, No nausea Genitourinary: see HPI; No discharge, No dysuria Musculoskeletal: see HPI, back pain, joint pain Skin: see HPI All Other Systems Reviewed Negative Unless Noted: Yes Past Jfqjyul-Cnbjug-Xweuvf Hx Patient Social History Alcohol Use: Denies Use Recreational Drug Use: No Smoking Status: Current Everyday Smoker Type Used: Cigarettes 2nd Hand Smoke Exposure: Yes Recent Hopitalizations: No Immunizations Up To Date Date of Pneumonia Vaccine: Nov 08, 2016 Date of Influenza Vaccine: Aug 08, 2012 Seasonal Allergies Seasonal Allergies: No Past Medical History Surgeries: Yes Appendectomy, Cardiac, CABG, Coronary Stent, Gallbladder, Orthopedic, Penile Implant, Renal, Transurethral Resection Respiratory: Yes Asthma, COPD, Emphysema Currently Using CPAP: No Currently Using BIPAP: No Cardiac: Yes (CABG IN 1999; 16 CARDIAC STENTS) Coronary Artery Disease, High Cholesterol, Hypertension Neurological: Yes Headaches /Migraines, Seizure Disorder Reproductive Disorders: Yes (ED--PENILE IMPLANT) Sexually Transmitted Disease: No HIV/AIDS: No Genitourinary: Yes Benign Prostatic Hyperpl, Kidney Stones Gastrointestinal: Yes Gastroesophageal Reflux, Ulcer Musculoskeletal: Yes Arthritis Endocrine: Yes Diabetes, Non-Insulin dep HEENT: Yes Cataract, Glaucoma Loss of Vision: Denies Hearing Impairment: Hard of Hearing Cancer: No Psychosocial: Yes Anxiety, Bipolar, Depression Integumentary: No Blood Disorders: No Adverse Reaction/Blood Tranf: No Family Medical History Patient reports no known family medical history. Physical Exam Vital Signs Vital Signs - First Documented Capillary Refill : Height, Weight, BMI Height: 5'5.00" Weight: 160lbs. 15.4oz. [id number]; 31.00 BMI Method:Estimated General Appearance: WD/WN, mild distress HEENT: PERRL/EOMI, TMs normal; No pharynx normal (oropharynx is dry); other (and atraumatic head) Neck: non-tender, full range of motion, supple, normal inspection Cardiovascular: normal peripheral pulses, regular rate, rhythm Respiratory: lungs clear, normal breath sounds, no respiratory distress, no accessory muscle use Peripheral Pulses: 2+ Radial Pulses (R), 2+ Radial Pulses (L) Gastrointestinal: normal bowel sounds, non tender, soft Back: normal inspection, vertebral tenderness (lumbar spine midline and right paravertebral tenderness to palpation) Extremities: normal inspection, no pedal edema, no calf tenderness, normal capillary refill, other (tenderness over the head of the right hip laterally as well as some tenderness over her lumbar spine midline and right side.) Neurologic/Psychiatric: no motor/sensory deficits, alert, normal mood/affect, oriented x 3 Skin: normal color, warm/dry, other (minor superficial abrasion approximately 1 x 3 cm over the right bicep) Tanesha Coma Score Best Eye Response: (4) Open Spontaneously Best Verbal Response: (5) Oriented Best Motor Response: (6) Obeys Commands [place] Total: 15 Progress/Results/Core Measures Results/Orders Lab Results Laboratory Tests Test 02/17/20 09:15 Range/Units White Blood Count 8.9 4.3-11.0 10^3/uL Red Blood Count 4.33 L 4.35-5.85 10^6/uL Hemoglobin 11.9 L 13.3-17.7 G/DL Hematocrit 35 L 40-54 % Mean Corpuscular Volume 82 80-99 FL Mean Corpuscular Hemoglobin 27 25-34 PG Mean Corpuscular Hemoglobin Concent 34 32-36 G/DL Red Cell Distribution Width 15.6 H 10.0-14.5 % Platelet Count 371 130-400 10^3/uL Mean Platelet Volume 7.7 7.4-10.4 FL Neutrophils (%) (Auto) 81 H 42-75 % Lymphocytes (%) (Auto) 11 L 12-44 % Monocytes (%) (Auto) 7 0-12 % Eosinophils (%) (Auto) 1 0-10 % Basophils (%) (Auto) 0 0-10 % Neutrophils # (Auto) 7.2 1.8-7.8 X 10^3 Lymphocytes # (Auto) 1.0 1.0-4.0 X 10^3 Monocytes # (Auto) 0.6 0.0-1.0 X 10^3 Eosinophils # (Auto) 0.1 0.0-0.3 10^3/uL Basophils # (Auto) 0.0 0.0-0.1 10^3/uL Sodium Level 132 L 135-145 MMOL/L Potassium Level 4.4 3.6-5.0 MMOL/L Chloride Level 96 L 98-107 MMOL/L Carbon Dioxide Level 25 21-32 MMOL/L Anion Gap 11 5-14 MMOL/L Blood Urea Nitrogen 18 7-18 MG/DL Creatinine 0.76 0.60-1.30 MG/DL Estimat Glomerular Filtration Rate > 60 BUN/Creatinine Ratio 24 Glucose Level 182 H 70-105 MG/DL Calcium Level 9.3 8.5-10.1 MG/DL Corrected Calcium 9.3 8.5-10.1 MG/DL Total Bilirubin 0.2 0.1-1.0 MG/DL Aspartate Amino Transf (AST/SGOT) 12 5-34 U/L Alanine Aminotransferase (ALT/SGPT) 7 0-55 U/L Alkaline Phosphatase 60 40-136 U/L Total Protein 6.7 6.4-8.2 GM/DL Albumin 4.0 3.2-4.5 GM/DL My Orders Orders - LOTUS FREIRE Ct Head/Cervical Spine Wo (02/17/20 09:11) Ct Thoracic/Lumbar Spine Wo (02/17/20 09:11) Chest 1 View Ap/Pa Only (02/17/20 09:11) Knee 3 View Right (02/17/20 09:11) Pelvis With Right Hip 2-3 View (02/17/20 09:11) Cbc With Automated Diff (02/17/20 09:11) Comprehensive Metabolic Panel (02/17/20 09:11) Creatine Kinase (02/17/20 09:11) Ed Iv/Invasive Line Start (02/17/20 09:11) Ns Iv 500 Ml (Sodium Chloride 0.9%) (02/17/20 09:11) Fentanyl Injection (Sublimaze Injection (02/17/20 09:15) Ketorolac Injection (Toradol Injection) (02/17/20 10:00) Ketorolac Injection (Toradol Injection) (02/17/20 09:55) Oxycodone/Apap 5/325mg Tablet (Percocet (02/17/20 11:00) Medications Given in ED Current Medications Medications Dose Ordered Sig/Brenna Route Start Time Stop Time Status Last Admin Dose Admin Fentanyl Citrate 50 mcg ONCE ONCE IVP 02/17/20 09:15 02/17/20 09:16 DC 02/17/20 09:25 50 MCG Ketorolac Tromethamine 30 mg ONCE ONCE IVP 02/17/20 10:00 02/17/20 10:01 DC 02/17/20 10:05 30 MG Oxycodone/ Acetaminophen 2 tab ONCE ONCE PO 02/17/20 11:00 02/17/20 11:01 DC 02/17/20 11:01 2 TAB Sodium Chloride 500 ml @ 0 mls/hr Q0M ONCE IV 02/17/20 09:11 02/17/20 09:16 DC 02/17/20 09:25 999 MLS/HR Vital Signs/I&O 02/17/20 02/17/20 09:05 09:05 Temp 36.6 36.6 Pulse 78 78 Resp 16 16 B/P (MAP) 131/68 (89) 131/68 (89) Pulse Ox 97 97 O2 Delivery Room Air Room Air Progress Progress Note #1: Time: 09:26 Progress Note Plan to image head and neck as well as thoracolumbar spine with CT. Chest x-ray, pelvis and right hip x-ray. Right knee x-ray. Fentanyl 50 g for pain. Labs and urinalysis. CPK. Progress Note #2: Time: 09:58 Progress Note Patient's urine culture from yesterday shows no growth. He is already on Keflex coverage so we discontinued the urinalysis today. Progress Note #3: Time: 11:12 Progress Note Patient does not feel significant pain control from the fentanyl and Toradol. He is on oxycodone and OxyContin as well as gabapentin. He has not taken his morning meds today. Give him 2x 5 mg tablets of Percocet. Diagnostic Imaging Diagonstic Imaging: CT (without IV contrast) Plain Films/CT/US/NM/MRI: c-spine, head Comments NAME: JONATHON TINSLEY MED REC#: [id number] PT STATUS: REG ER : 1950 PHYSICIAN: LOTUS FREIRE MD ADMIT DATE: 02/17/20/ER FS Draft Date of Exam:02/17/20 CT HEAD/CERVICAL SPINE WO PROCEDURE: CT head and CT cervical spine without contrast. TECHNIQUE: Multiple contiguous axial images were obtained through the brain and cervical spine without the use of intravenous contrast. Sagittal and coronal reformations through the cervical spine were then performed. Auto Exposure Controls were utilized during the CT exam to meet ALARA standards for radiation dose reduction. INDICATION: Fall. Disorientation. CORRELATION made with the prior study from June 05, 2019. FINDINGS: The CT of the head demonstrates age-related global volume loss. There are no CT findings of an acute intracranial abnormality. There is no evidence of intracranial hemorrhage. There is no mass effect or shift. There is no hydrocephalus. No abnormal extra-axial fluid collection Garcia and white matter differentiation appear maintained. There is no abnormal low density evident within the basal ganglia within the prashant. The posterior fossa demonstrates no acute process. The mastoid air cells are clear. There is minimal mucosal thickening in the left maxillary sinus and within the anterior ethmoids. Orbital contents unremarkable. There is no calvarial fracture. The cervical spine demonstrates background features of cervical degenerative disc disease and facet arthropathy. There is straightening of the cervical lordosis. Alignment is within normal limits. There is normal alignment of the craniocervical junction. There are normal relationships of the lateral masses of C1 and C2. Facets normally aligned. There is no facet joint or disc space widening. There are multilevel endplate changes most advanced at C3-C4 and C7-T1 with some chronic wedging of the C7 vertebral body. No acute cervical spine fracture is demonstrated. 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 By CT imaging there are no findings to suggest high-grade central canal stenosis. Most advanced canal stenosis appears [id number] at C3-C4. There is however moderate foraminal stenosis bilaterally at C3-C4 and C4-C5 due to facet arthropathy and uncovertebral spurring. Lung apices demonstrate centrilobular emphysema. Soft tissues of the neck demonstrate carotid calcifications. IMPRESSION: 1. Age-related global volume loss without CT evidence of an acute intracranial abnormality. 2. Background features of cervical degenerative disc disease and facet arthropathy without CT findings of an acute cervical spine fracture or traumatic malalignment. 3. Pulmonary emphysema. 4. Atherosclerosis. Dictated on workstation # [id number] Dict: 02/17/20 1116 Trans: 02/17/20 1125 [facility] [id number] Interpreted by: TERRA GAONA MD Electronically signed by: Reviewed: Reviewed by Tx Diagonstic Imaging: Xray Plain Films/CT/US/NM/MRI: chest (1v) Comments NAME: JONATHON TINSLEY [facility] REC#: [id number] PT STATUS: REG ER : 1950 PHYSICIAN: LOTUS FREIRE MD ADMIT DATE: 02/17/20/ER FS Draft Date of Exam:02/17/20 CHEST 1 VIEW AP/PA ONLY INDICATION: Fall with chest pain. COMPARISON: 01/29/2019. DISCUSSION: Single portable supine view of the chest was obtained. Stable normal heart size. Median sternotomy is stable. No new consolidation, pleural fluid, or pneumothorax. Mild interstitial thickening appears chronic, likely due to chronic lung disease. No osseous abnormality. IMPRESSION: 1. Stable negative chest. Dictated on workstation # [id number] Dict: 02/17/20 1100 Trans: 02/17/20 1104 [id number] Interpreted by: SIRIA SONI MD Electronically signed by: Reviewed: Reviewed by Tx Diagonstic Imaging: Xray Plain Films/CT/US/NM/MRI: pelvis, hip (r) Comments [facility] [place] NAME: JONATHON TINSLEY [facility] REC#: [id number] PT STATUS: REG ER : 1950 PHYSICIAN: LOTUS FREIRE MD ADMIT DATE: 02/17/20/ER FS Draft Date of Exam:02/17/20 PELVIS WITH RIGHT HIP 2-3 VIEW INDICATION: Fall with right hip pain. COMPARISON: 06/05/2019. DISCUSSION: AP view of the pelvis and two views of the right hip were obtained. Previous postoperative changes of the bilateral hips with additional penile implant is again noted. No hardware complications. No acute fracture or dislocation. Soft tissues are unremarkable. IMPRESSION: 1. Stable chronic changes of the pelvis. No acute fracture. Dictated on workstation # [id number] Dict: 02/17/20 1101 Trans: 02/17/20 1105 [place] [id number] Interpreted by: SIRIA SONI MD Electronically signed by: Reviewed: Reviewed by Tx Diagonstic Imaging: Xray Plain Films/CT/US/NM/MRI: knee (r) Comments [facility] [place] NAME: JONATHON TINSLEY [facility] REC#: [id number] PT STATUS: REG ER : 1950 PHYSICIAN: LOTUS FREIRE MD ADMIT DATE: 02/17/20/ER FS Draft Date of Exam:02/17/20 KNEE 3 VIEW RIGHT Right knee series. INDICATION: Knee pain. Fall. FINDINGS: The bones appear of low bone mineral density. This limits sensitivity of examination. There are, however no findings of cortical disruption to suggest an acute fracture. Lateral positioning is limited but no large joint effusion is evident. There are multiple surgical clips within the the medial soft tissues likely relating to prior vein harvest. IMPRESSION: 1. Normal knee alignment. Low bone mineral density without evidence of acute fracture. No findings to suggest large joint effusion. Dictated on workstation # [id number] Dict: 02/17/20 1100 Trans: 02/17/20 1107 [id number] Interpreted by: TERRA GAONA MD Electronically signed by: Reviewed: Reviewed by Tx Diagonstic Imaging: CT Plain Films/CT/US/NM/MRI: other (thoracolumbar spine) Comments [facility] [place] NAME: JONATHON TINSLEY [facility] REC#: [id number] PT STATUS: REG ER : 1950 PHYSICIAN: LOTUS FREIRE MD ADMIT DATE: 02/17/20/ER FS Draft Date of Exam:02/17/20 CT THORACIC/LUMBAR SPINE WO PROCEDURE: CT thoracic and lumbar spine without contrast. TECHNIQUE: Multiple contiguous axial images were obtained through the thoracic and lumbar spine without the use of intravenous contrast. Sagittal and coronal reformations were then performed. All CT scans use one or more of the following dose optimizing techniques: automated exposure control, MA and/or KvP adjustment based on a patient size and exam type, or iterative reconstruction. INDICATION: Fall. FINDINGS: Alignment of the thoracic and lumbar spine appear within normal limits. There are mild multilevel degenerative endplate changes present throughout the thoracic and lumbar spine. There is chronic appearing inferior endplate irregularity of L1. There are no CT findings to suggest an acute thoracic or lumbar fracture. The facets are normally aligned. There is no pars defect. There are no findings of facet joint or disc space widening. There is no suspicious marrow replacing lesion. By CT imaging, there are no findings to suggest high-grade thoracic or lumbar canal stenosis. There is mild lower lumbar facet arthropathy. There appears to be mild narrowing of the neural foramen bilaterally at L5-S1. Paraspinal soft tissues are unremarkable. There are advanced atherosclerotic calcifications present within the aorta. There is no retroperitoneal adenopathy. The kidneys appear nonobstructed. The lungs demonstrate background features of centrilobular emphysema. The patient is status post prior sternotomy. There has been previous coronary artery bypass grafting. The visualized posterior ribs demonstrate no evidence of fracture. IMPRESSION: 1. Mild background degenerative endplate changes and lower lumbar facet arthropathy. Alignment of the thoracic and lumbar spine appears appropriate without CT findings of an acute fracture or a suspicious marrow replacing lesion. There is no facet joint or disc space widening. There are no CT findings to suggest high-grade thoracic or lumbar canal stenosis. Dictated on workstation # [id number] Dict: 02/17/20 1119 Trans: 02/17/20 1140 [facility] [id number] Interpreted by: TERRA GAONA MD Electronically signed by: Reviewed: Reviewed by Me Departure Impression Primary Impression: Fall from bed, initial encounter Additional Impressions: Acute right hip pain Acute low back pain Qualified Codes: M54.5 - Low back pain Abrasion Disposition: 01 HOME, SELF-CARE Condition: Stable Departure-Patient Inst. Decision time for Depature: 11:46 Referrals: LOUANN COREY MD (PCP/Family) Primary Care Physician Patient Instructions: Hip Pain in Older People, Low Back Pain (DC) Add. Discharge Instructions: Use heating pads, Tylenol and ibuprofen as necessary. Use your breakthrough pain medicines in addition to your chronic pain medicines that you have not taken yet today when you get home. Plan to follow up with your primary care doctor if you're having uncontrolled pain or difficulty getting around and you suspect that physical therapy might be of benefit. Wearing a back brace can be helpful in the short-term for chronic back pain. Topical creams such as icy hot or Biofreeze are also recommended. LOTUS FREIRE J Feb 17, 2020 09:26
[2020-02-17 09:28] LABS: BASOPHILS % (AUTO) 0 % (0-10); EOSINOPHILS % (AUTO) 1 % (0-10); HEMATOCRIT 35 % (40-54); HEMOGLOBIN 11.9 G/DL (13.3-17.7); LYMPHOCYTES % (AUTO) 11 % (12-44); MEAN CORPUSCULAR HEMOGLOBIN 27 PG (25-34); MEAN CORPUSCULAR HGB CONC 34 G/DL (32-36); MEAN CORPUSCULAR VOLUME 82 FL (80-99); MEAN PLATELET VOLUME 7.7 FL (7.4-10.4); MONOCYTES % (AUTO) 7 % (0-12); NEUTROPHILS % (AUTO) 81 % (42-75); PLATELET COUNT 371 10^3/uL (130-400); RED CELL DISTRIBUTION WIDTH 15.6 % (10.0-14.5); WHITE BLOOD COUNT 8.9 10^3/uL (4.3-11.0)
[2020-02-17 09:29] LABS: EOSINOPHILS # (AUTO) 0.1 10^3/uL (0.0-0.3); MONOCYTES # (AUTO) 0.6 X 10^3 (0.0-1.0); NEUTROPHILS # (AUTO) 7.2 X 10^3 (1.8-7.8)
[2020-02-17 09:48] LABS: ALKALINE PHOSPHATASE 60 U/L (40-136); BILIRUBIN,TOTAL 0.2 MG/DL (0.1-1.0); BUN/CREATININE RATIO 24; CALCIUM 9.3 MG/DL (8.5-10.1); CARBON DIOXIDE 25 MMOL/L (21-32); CHLORIDE 96 MMOL/L (98-107); CREATININE SERUM 0.76 MG/DL (0.60-1.30); GFR ESTIMATED > 60; GLUCOSE 182 MG/DL (70-105); POTASSIUM 4.4 MMOL/L (3.6-5.0); SODIUM 132 MMOL/L (135-145)
[2020-02-17 09:49] LABS: ALANINE AMINOTRANSFERASE 7 U/L (0-55); TOTAL PROTEIN 6.7 GM/DL (6.4-8.2)
[2020-02-17] MEDS ORDERED: KETOROLAC 30 MG/ML VIAL ONE (09:55)
[2020-02-17] MEDS ORDERED: KETOROLAC 30 MG/ML VIAL IVP ONE (10:00)
[2020-02-17] MEDS ORDERED: oxyCODONE/APAP 5/325MG (PERCOCET 5) TABLET PO ONE (11:00)
--- NOTE | 2020-02-17 11:05 | Diagnostic Imaging Report ---
INDICATION: Fall with chest pain. COMPARISON: 01/29/2019. DISCUSSION: Single portable supine view of the chest was obtained. Stable normal heart size. Median sternotomy is stable. No new consolidation, pleural fluid, or pneumothorax. Mild interstitial thickening appears chronic, likely due to chronic lung disease. No osseous abnormality. IMPRESSION: 1. Stable negative chest. Dictated by: Dictated on workstation # [id number]
--- NOTE | 2020-02-17 11:06 | Diagnostic Imaging Report ---
INDICATION: Fall with right hip pain. COMPARISON: 06/05/2019. DISCUSSION: AP view of the pelvis and two views of the right hip were obtained. Previous postoperative changes of the bilateral hips with additional penile implant is again noted. No hardware complications. No acute fracture or dislocation. Soft tissues are unremarkable. IMPRESSION: 1. Stable chronic changes of the pelvis. No acute fracture. Dictated by: Dictated on workstation # [id number]
--- NOTE | 2020-02-17 11:07 | Diagnostic Imaging Report ---
Right knee series. INDICATION: Knee pain. Fall. FINDINGS: The bones appear of low bone mineral density. This limits sensitivity of examination. There are, however no findings of cortical disruption to suggest an acute fracture. Lateral positioning is limited but no large joint effusion is evident. There are multiple surgical clips within the the medial soft tissues likely relating to prior vein harvest. IMPRESSION: 1. Normal knee alignment. Low bone mineral density without evidence of acute fracture. No findings to suggest large joint effusion. Dictated by: Dictated on workstation # [id number]
--- NOTE | 2020-02-17 11:27 | Diagnostic Imaging Report ---
PROCEDURE: CT head and CT cervical spine without contrast. TECHNIQUE: Multiple contiguous axial images were obtained through the brain and cervical spine without the use of intravenous contrast. Sagittal and coronal reformations through the cervical spine were then performed. Auto Exposure Controls were utilized during the CT exam to meet ALARA standards for radiation dose reduction. INDICATION: Fall. Disorientation. CORRELATION made with the prior study from June 05, 2019. FINDINGS: The CT of the head demonstrates age-related global volume loss. There are no CT findings of an acute intracranial abnormality. There is no evidence of intracranial hemorrhage. There is no mass effect or shift. There is no hydrocephalus. No abnormal extra-axial fluid collection Garcia and white matter differentiation appear maintained. There is no abnormal low density evident within the basal ganglia within the prashant. The posterior fossa demonstrates no acute process. The mastoid air cells are clear. There is minimal mucosal thickening in the left maxillary sinus and within the anterior ethmoids. Orbital contents unremarkable. There is no calvarial fracture. The cervical spine demonstrates background features of cervical degenerative disc disease and facet arthropathy. There is straightening of the cervical lordosis. Alignment is within normal limits. There is normal alignment of the craniocervical junction. There are normal relationships of the lateral masses of C1 and C2. Facets normally aligned. There is no facet joint or disc space widening. There are multilevel endplate changes most advanced at C3-C4 and C7-T1 with some chronic wedging of the C7 vertebral body. No acute cervical spine fracture is demonstrated. 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 By CT imaging there are no findings to suggest high-grade central canal stenosis. Most advanced canal stenosis appears [id number] at C3-C4. There is however moderate foraminal stenosis bilaterally at C3-C4 and C4-C5 due to facet arthropathy and uncovertebral spurring. Lung apices demonstrate centrilobular emphysema. Soft tissues of the neck demonstrate carotid calcifications. IMPRESSION: 1. Age-related global volume loss without CT evidence of an acute intracranial abnormality. 2. Background features of cervical degenerative disc disease and facet arthropathy without CT findings of an acute cervical spine fracture or traumatic malalignment. 3. Pulmonary emphysema. 4. Atherosclerosis. Dictated by: Dictated on workstation # [id number]
--- NOTE | 2020-02-17 11:41 | Diagnostic Imaging Report ---
PROCEDURE: CT thoracic and lumbar spine without contrast. TECHNIQUE: Multiple contiguous axial images were obtained through the thoracic and lumbar spine without the use of intravenous contrast. Sagittal and coronal reformations were then performed. All CT scans use one or more of the following dose optimizing techniques: automated exposure control, MA and/or KvP adjustment based on a patient size and exam type, or iterative reconstruction. INDICATION: Fall. FINDINGS: Alignment of the thoracic and lumbar spine appear within normal limits. There are mild multilevel degenerative endplate changes present throughout the thoracic and lumbar spine. There is chronic appearing inferior endplate irregularity of L1. There are no CT findings to suggest an acute thoracic or lumbar fracture. The facets are normally aligned. There is no pars defect. There are no findings of facet joint or disc space widening. There is no suspicious marrow replacing lesion. By CT imaging, there are no findings to suggest high-grade thoracic or lumbar canal stenosis. There is mild lower lumbar facet arthropathy. There appears to be mild narrowing of the neural foramen bilaterally at L5-S1. Paraspinal soft tissues are unremarkable. There are advanced atherosclerotic calcifications present within the aorta. There is no retroperitoneal adenopathy. The kidneys appear nonobstructed. The lungs demonstrate background features of centrilobular emphysema. The patient is status post prior sternotomy. There has been previous coronary artery bypass grafting. The visualized posterior ribs demonstrate no evidence of fracture. IMPRESSION: 1. Mild background degenerative endplate changes and lower lumbar facet arthropathy. Alignment of the thoracic and lumbar spine appears appropriate without CT findings of an acute fracture or a suspicious marrow replacing lesion. There is no facet joint or disc space widening. There are no CT findings to suggest high-grade thoracic or lumbar canal stenosis. Dictated by: Dictated on workstation # [id number]
[2020-02-17 12:05] VITALS: BP 116/54
[2020-02-17 16:50] LABS: CREATINE KINASE 30 U/L (30-200)
== END 2020-02-17 12:05 | disposition home or self-care (01) ==
LOC: EDUNIT# 09:04 → ER FS 09:05
DX: M25.551 Pain in right hip (principal); M54.5 Low back pain; S40.811A Abrasion of right upper arm, initial encounter; R33.9 Retention of urine, unspecified; F17.210 Nicotine dependence, cigarettes, uncomplicated; I25.10 Atherosclerotic heart disease of native coronary artery without angina pectoris; E78.00 Pure hypercholesterolemia, unspecified; I10 Essential (primary) hypertension; G40.909 Epilepsy, unspecified, not intractable, without status epilepticus; N40.1 Benign prostatic hyperplasia with lower urinary tract symptoms; K21.9 Gastro-esophageal reflux disease without esophagitis; E11.9 Type 2 diabetes mellitus without complications; M19.91 Primary osteoarthritis, unspecified site; F41.9 Anxiety disorder, unspecified; F31.9 Bipolar disorder, unspecified; W06.XXXA Fall from bed, initial encounter; Z88.0 Allergy status to penicillin; Z88.8 Allergy status to other drugs, medicaments and biological substances; Z88.2 Allergy status to sulfonamides; Z79.02 Long term (current) use of antithrombotics/antiplatelets; Z79.82 Long term (current) use of aspirin; Z79.899 Other long term (current) drug therapy; Z95.1 Presence of aortocoronary bypass graft; Z95.5 Presence of coronary angioplasty implant and graft
CPT/HCPCS: 36415; 70450; 71045; 72125; 72128; 72131; 73502; 73562; 80053; 82550; 85025

== ENCOUNTER 2020-03-24 13:24 | Inpatient (IN) | payer MEDICARE, MEDICAID ==
[~2020-03-24] VITALS: Ht 175.3 cm; Wt 74.2 kg
[~2020-03-24 13:24] MED LIST changes: +NALOXONE 0.4 MG/ML 1 ML (NARCAN) VIAL ONE
[2020-03-24] MEDS ORDERED: NS IV 500 ML 500 ML IV STA (13:30)
[2020-03-24] MEDS ORDERED: NALOXONE 0.4 MG/ML 1 ML (NARCAN) VIAL IV ONE (13:30)
--- OUTSIDE RECORDS SUMMARY | 2020-03-24 13:33 | XMS REPORT | Clinical Summary ---
Author Author [facility] Organization [facility] Address Unknown Phone Unavailable Care Team Providers Care Academic Affairs Director Name Role Phone Tiesha Werner MD Unavailable Unavailable Kentrell Santizo MD Unavailable Doug Maravilla PA-C Unavailable Shahram Mccallum MD PCP Unavailable Ivon Hancock RN Unavailable Unavailable Chip Bowers MD Unavailable Unavailable Source Comments Some departments are not documenting in the electronic medical record. If you d o not see the information that you expected, contact Release of Information in [facility] Information Management department at [phone] for further assistan ce in locating additional records.[facility] Allergies Comments Active Allergy Reactions Severity Noted [...] [facility] PACS. Consults: Cardiology: Walter Oconnor MD ([place], [place]) -- Scanned to Cardiology Referral in [...] Health Maintenance Due Date Last Done Comments MEDICARE ANNUAL WELLNESS 1950 VISIT DTAP/TDAP VACCINES (1 - 1967 Tdap) HEPATITIS C SCREENING 1967 PHYSICAL (COMPREHENSIVE) 1967 EXAM COLORECTAL CANCER 1999 SCREENING SHINGLES RECOMBINANT 1999 VACCINE (1 of 2) ABDOMINAL AORTIC ANEURYSM 2014 SCREENING PNEUMONIA (PPSV23) 2014 VACCINE (1 of 1 - PPSV23) INFLUENZA VACCINE 08/08/2020 Results Not on filefrom Last 3 Months Insurance Type Payer Benefit Subscriber ID Effective Phone Address Plan / Dates Group Medicare MEDICARE MEDICARE xxxxxxxxxx 2000- PART A AND Present B Medicaid UHC MEDICAID [place] UHC xxxxxxxxxxx 2012- [facility] [place] [phone] 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
--- OUTSIDE RECORDS SUMMARY | 2020-03-24 13:35 | XMS REPORT | Clinical Summary ---
Author Author [facility], [place], [place], [place], [facility] Organization [facility] [place], [place], [place], [facility] Address Unknown Phone Unavailable Care Team Providers Care Environmental Scientists Name Role Phone Claus Couch MD PCP Allergies Comments Active Allergy Reactions Severity Noted Date Codeine Unknown 09/02/2012 Doxycycline Rash 09/02/2012 Penicillins Hives High 04/09/2008 "relaxes me too much" Phenobarbital Weakness 09/02/2012 Breaks out Piperacillin-Tazobactam Hives, Rash 09/02/2012 Sulfamethoxazole-Trimetho Nausea and 07/04/2015 prim Vomiting Chest heaviness, chest pain Terazosin Other (See 09/02/2012 Comments) "stops breathing, no pulse" Unresponsiveness "stops breathing, no pulse" "stops breathing, no pulse" Unresponsiveness Diazepam Other (See 09/02/2012 Comments) Medications End Date Status Medication Sig Dispensed Refills Start Date Active pioglitazone (ACTOS) 30 Take 30 mg by 0 mg Oral tablet mouth daily with breakfast. Active bethanechol (URECHOLINE) Take 25 mg by 0 25 mg Oral tablet mouth 4 times daily. Active clopidogrel (PLAVIX) 75 Take 75 mg by 0 mg Oral Tab mouth daily. Active tamsulosin (FLOMAX) 0.4 Take 0.4 mg 0 mg Oral capsule by mouth daily with supper. Active FLUoxetine (PROZAC) 20 mg Take 40 mg by 0 Oral tablet mouth daily. Active loratadine (CLARITIN) 10 Take 10 mg by 0 mg Oral tablet mouth daily. Active magnesium oxide 250 mg Take 250 mg 0 Oral Tab by mouth 3 times daily with meals. Active phenytoin (DILANTIN) 200 Take 200 mg 0 mg Oral Cap by mouth 2 times daily. Active esomeprazole (NEXIUM) 20 Take 20 mg by 0 mg Oral CpDR mouth daily before breakfast. Active multivitamin (DAILY-DAVID) Take 1 Tab by 0 Oral tablet mouth daily after lunch. Active fenofibrate Take 145 mg 0 nanocrystallized (TRICOR) by mouth 145 mg Oral tablet daily. Active ezetimibe (ZETIA) 10 mg Take 10 mg by 0 Oral tablet mouth daily at bedtime. Active simvastatin (ZOCOR) 40 mg Take 40 mg by 0 Oral tablet mouth daily at bedtime. Active fluticasone (FLOVENT HFA) Take 1 Puff 12 Gram 1 110 mcg/actuation by inhalation 2 Inhalation Aero 2 times daily. Active albuterol (PROAIR HFA) 90 Take 2 Puffs 6.7 Gram 1 mcg/Actuation Inhalation by inhalation 2 HFAA inhaler every 4 hours as needed for Shortness of Breath or Wheezing. Active OLANZapine (ZYPREXA) 2.5 Take 2.5 mg 0 mg tablet by mouth daily at bedtime. Active LORazepam (ATIVAN) 1 mg Take 1 mg by 0 tablet mouth every 12 hours. Active traZODone (DESYREL) 50 mg Take 50 mg by 0 tablet mouth daily at bedtime. Active nitroglycerin (NITROSTAT) Place 0.4 mg 0 0.4 mg Tablet, Sublingual under tongue every 5 minutes as needed for Chest Pain. Active prochlorperazine maleate Take 10 mg by 0 (COMPAZINE) 10 mg tablet mouth every 6 hours as needed for Nausea/Emesis . Active belladonna Insert 1 10 0 alkaloids-opium (B&O 15A) Suppository Suppository 7 16.2-30 mg Suppository by rectum every 6 hours as needed (bladder spasms). Max Daily Amount: 4 Suppositories Active ramipril (ALTACE) 5 mg Take 1 30 Capsule 0 capsule Capsule (5 7 mg) by mouth daily with lunch. Active oxyCODONE-acetaminophen Take 1 Tablet 40 Tablet 0 (PERCOCET) 10-325 mg by mouth 8 Tablet every 6 hours as needed for Pain, Severe. Max Daily Amount: 4 Tablets Active aspirin (ECOTRIN EC) 81 Take 1 Tablet 30 Tablet 0 mg Tablet, Delayed (81 mg) by 9 Release (E.C.) mouth daily. Active gabapentin (NEURONTIN) Take 300 mg 0 300 mg capsule by mouth daily. Active Problems Problem Noted Date Epilepsy 07/05/2018 Type 2 diabetes mellitus with ophthalmic complication , with long-term 07/04/2018 current use of insulin Tobacco dependence 06/20/2018 Bursitis of right elbow 01/24/2018 COPD (chronic obstructive pulmonary disease) 015 Coronary artery disease involving [place] coronary art len of [place] heart 09/02/2012 without angina pectoris Peripheral arterial disease 09/02/2012 Dyspnea, chronic 09/02/2012 Essential hypertension Hyperlipidemia with target LDL less modesto n 70 Depression Resolved Problems Problem Noted Date Resolved Date Acute cystitis without hematuria (POA) 01/31/2019 02/24/2019 Abnormal cardiovascular stress test 01/30/2019 Chest pain 01/29/2019 02/24/2019 Closed fracture of head of right femur 07/04/2018 02/24/2019 Elevated troponin 07/04/2018 02/24/2019 Greater trochanter fracture 09/04/2017 02/24/2019 Acute blood loss anemia 2017 02/24/2019 Hematuria 2017 05/15/2019 COPD with acute exacerbation 09/02/2012 5 Chest pain, chronic 09/02/2012 05/15/2019 Leg edema, left 09/02/2012 02/24/2019 Gross hematuria 05/15/2019 Hemorrhagic cystitis 05/15/2019 Encounters Care Team Description Date Type Specialty Walter Oconnor MD Coronary artery disease involving [place] coronary artery of [place] heart without angina pectoris (Primary Dx); Hyperlipidemia with target LDL less than 70; Essential hypertension; Tobacco dependence 02/15/2020 Video Visit Cardiology 02/08/2020 Travel from Last 3 Months Immunizations Name Administration Dates Next Due Influenza Vaccine 08/20/2017 Pneumococcal 13-valent 06/02/2012 Conjugate Vaccine Family History Medical History Relation Name Comments Hypertension Father Stroke Father Heart Failure Mother Hypertension Mother Relation Name Status Comments Father Mother Social History Date Tobacco Use Types Packs/Day Years Used Current Every Day Smoker 2 4 Smokeless Tobacco: Never Used Tobacco Cessation: Ready to Quit: No; Co unseling Given: Yes Comments: stopped for 10 to 15 years and restarted Drinks/Week oz/Week Comments Alcohol Use No Sex Assigned at Date Recorded Not on file Industry Job Start Date Occupation Not on file Not on file Not on file Travel End Travel History Travel Start No recent travel history available. Last Filed Vital Signs Reading Time Taken Comments Vital Sign 152/84 02/15/2020 10:52 AM CDT Blood Pressure 72 02/15/2020 10:52 AM CDT Pulse 36.5 C (97.7 F) 02/01/2019 12:09 PM CDT Temperature 18 02/15/2020 10:52 AM CDT Respiratory Rate 96% 05/15/2019 9:24 AM CDT Oxygen Saturation - - Inhaled Oxygen Concentration 75.8 kg (167 lb) 02/24/2019 10:48 AM CDT Weight 167.6 cm (5' 6") 02/15/2020 10:52 AM CDT Height 26.95 02/24/2019 10:48 AM CDT Body Mass Index Plan of Treatment Health Maintenance Due Date Last Done Comments DIABETES ANNUAL FOOT EXAM 1967 DIABETES ANNUAL RETINAL 1967 EXAM DIABETES MICROALBUMIN 1967 ANNUAL SCREEN COLORECTAL SCREENING 1999 ZOSTER VACCINE (1 of 2) 1999 PNEUMOCOCCAL VACCINE 65+ 2014 06/02/2012 YEARS (2 of 2 - PPSV23) DIABETES HBA1C Q 6 MONTHS 08/02/2019 01/30/2019 LDL CHOLESTEROL ANNUAL 01/31/2020 01/30/2019 INFLUENZA VACCINE Completed 09/05/2019, 018, 09/23/2018, Additional history exists Implants Device Identifier Shelf Expiration Date Model / Serial / L ot Implanted Type Area Manufactur er 209.875 / / Screw Gen 7.3x75mm Thrd 32mm Screw Right: Hip SYNTHES 209.875 - [id number] [employer]AT[employer] Implanted: Qty: 1 on 07/05/2018 by Zachary Verduzco, DO at [facility] JOIN 209.890 / / Screw Gen 7.3x90mm Thrd 32mm Screw Right: Hip SYNTHES 209.890 - [id number] [employer] Implanted: Qty: 1 on 07/05/2018 by Zachary Verduzco, DO at [facility] 209.880 / / Screw Gen 7.3x80mm Screw Right: Hip SYNTHES Implanted: Qty: 1 on 07/05/2018 by [employer] Zachary Verduzco, DO at [facility] 01/14/2020 / / [id number] Promus Premier 2.5mm X 8mm Stent [employer] Om-01/31/2019 INC Implanted: 01/31/2019 by Walter Oconnor MD (Quantity not on file) 12/27/2019 / / [id number] Promus Premier Circ 3.5mm X Stent [employer] 32mm-01/31/2019 INC Implanted: 01/31/2019 by Walter Oconnor MD (Quantity not on file) Results Not on filefrom Last 3 Months Insurance Type Payer Benefit Subscriber ID Effective Phone Address Plan / Dates Group Medicaid Managed Care [facility] [id number] 2017 STATE -Present HEALTH PLAN [facility] 1 Oliverio Dalton Personal/F Self 1950 [address] ([address]) [place] [address] 1 Advance Directives For more information, please contact: [phone] 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
--- OUTSIDE RECORDS SUMMARY | 2020-03-24 13:35 | XMS REPORT | Encounter Summary ---
Author Author [facility] [place], [place], [place], [facility] Organization [facility] [place], [place], [place], [facility] Address Unknown Phone Unavailable Care Team Providers Care Pile Header Name Role Phone Claus Couch MD PCP Encounter Details Care Team Description Date Type Department 02/08/2020 Travel Social History Date Tobacco Use Types Packs/Day Years Used Current Every Day Smoker 2 4 Smokeless Tobacco: Never Used Comments: stopped for 10 to 15 years and restarted Drinks/Week oz/Week Comments Alcohol Use No Sex Assigned at Date Recorded Not on file Industry Job Start Date Occupation Not on file Not on file Not on file Travel End Travel History Travel Start No recent travel history available. Date Recorded COVID-19 Exposure Response 02/08/2020 10:59 AM CDT In the last month, have you been in contact with Shaina ble to assess someone who was confirmed or suspected to have Coronavirus / COVID-19? documented as of this encounter Plan of Treatment Not on filedocumented as of this encounter Visit Diagnoses Not on filedocumented in this encounter
--- OUTSIDE RECORDS SUMMARY | 2020-03-24 13:35 | XMS REPORT | Encounter Summary ---
Author Author [facility] [place], [place], [facility] Organization [facility] [place], [place], [place] Address Unknown Phone Unavailable Care Team Providers Care Soap Boiler Name Role Phone Claus Couch MD PCP Reason for Visit * Reason Comments Follow Up Encounter Details Care Team Description Date Type Department Walter Oconnor MD [address] [place] [id number] Coronary artery disease involving [place] coronary artery of [place] heart without angina pectoris (Primary Dx); Hyperlipidemia with target LDL less than 70; Essential hypertension; Tobacco dependence 02/15/2020 Video Visit [facility] [place] [address] [place] [id number] Social History Date Tobacco Use Types Packs/Day [...] / COVID-19? documented as of this encounter Last Filed Vital Signs Reading Time Taken Comments Vital Sign 152/84 02/15/2020 10:52 AM CDT Blood Pressure 72 02/15/2020 10:52 AM CDT Pulse - - Temperature 18 02/15/2020 10:52 AM CDT Respiratory Rate - - Oxygen Saturation - - Inhaled Oxygen Concentration - - Weight 167.6 cm (5' 6") 02/15/2020 10:52 AM CDT Height - - Body Mass Index documented in this encounter Progress Notes * Walter Oconnor MD - 02/15/2020 10:59 AM CDT HISTORY OF PRESENT ILLNESS Oliverio Dalton, a 69 y.o. male. Subjective HPI This encounter was completed via two-way synchronous audio and video communicati on. Patient expressed understanding that using technology outside of "[facility]" has higher potential to introduce privacy risks: Yes Patient's identity confirmed yes Patient gave verbal consent to have these services billed to their insurance and expressed understanding that co-insurance and deductible may apply - yes Patient has a hx of CAD/HTN/HLD/PVD- denies cardiac complaints. REVIEW OF SYSTEMS Review of Systems Constitutional: Negative for activity change, fatigue and fever. HENT: Negative for congestion and trouble swallowing. Eyes: Positive for visual disturbance. Respiratory: Negative for apnea, cough, chest tightness, shortness of breath and wheezing. Cardiovascular: Negative for chest pain, palpitations and leg swelling. Gastrointestinal: Negative for abdominal pain, blood in stool, constipation, michael rrhea, nausea and vomiting. Genitourinary: Negative for dysuria, frequency, hematuria and urgency. Musculoskeletal: Positive for gait problem. Negative for back pain and joint swe lling. Skin: Negative for color change, pallor and rash. Neurological: Negative for dizziness, syncope, facial asymmetry, speech difficul ty, weakness, light-headedness and headaches. Hematological: Does not bruise/bleed easily. Psychiatric/Behavioral: Negative for behavioral problems, confusion and suicidal ideas. Objective Physical Exam Physical Exam: BP (!) 152/84 (BP Location: Left arm, Patient Position (BP): Sitting, BP Cuff Si ze: Large Adult) | Pulse 72 | Resp 18 | Ht 5' 6" (1.676 m) | BMI 26.95 kg/m General: appears well nourished, not in acute distress HEENT: normal sclera, EOMI, mucus membranes moist, neck midline Cardio: No increased JVD Pulmonary: No increase work of breathing. No stridor. Ext: No visible edema Psych: Normal mood and affect, good judgment and insight Lab Results Component Value Date/Time WBC 6.7 01/30/2019 01:10 AM HEMOGLOBIN 10.7 (L) 02/01/2019 12:22 AM POC HEMOGLOBIN 12.2 (L) 09/02/2012 04:41 PM HEMATOCRIT 34.7 (L) 02/01/2019 12:22 AM POC HEMATOCRIT 36.0 (L) 09/02/2012 04:41 PM PLATELETS 277 01/30/2019 01:10 AM MCV 86.1 01/30/2019 01:10 AM CHOLESTEROL 121 01/30/2019 03:26 AM HDL 42 01/30/2019 03:26 AM LDL CALCULATED 46 01/30/2019 03:26 AM TRIGLYCERIDE 163 (H) 01/30/2019 03:26 AM ALT 51 (H) 01/30/2019 01:10 AM AST 219 (H) 01/30/2019 01:10 AM SODIUM 136 02/01/2019 12:22 AM POTASSIUM 4.4 02/01/2019 12:22 AM POC POTASSIUM 4.8 09/02/2012 04:41 PM CHLORIDE 101 02/01/2019 12:22 AM CO2 24 02/01/2019 12:22 AM CREATININE 0.85 02/01/2019 12:22 AM BUN 18 02/01/2019 12:22 AM TSH 1.06 01/30/2019 01:10 AM INR 1.2 01/30/2019 01:10 AM GLUCOSE 112 (H) 02/01/2019 12:22 AM HEMOGLOBIN A1C 6.1 (H) 01/30/2019 01:10 AM The ASCVD Risk score (Cromwell GEE Jr., et al., 2013) failed to calculate for the fol lowing reasons: The valid total cholesterol range is 130 to 320 mg/dL Assessment ASSESSMENT and PLAN: Encounter Diagnoses Name Primary? Coronary artery disease involving [place] coronary artery of [place] heart wit hout angina pectoris Yes Hyperlipidemia with target LDL less than 70 Essential hypertension Tobacco dependence No orders of the defined types were placed in this encounter. DISCUSSION: 1. Same meds; no refills needed 2. Lab per primary 3. No non invasive studies needed at this time 11 minutes [id number] with over 50% spent on counseling and coordinating their care on diagnosis, effects of medication, diagnostic testing, and treatment int erventions Start Time:1122 End Time:1133 He denies any questions. He voiced understanding and agreement with the treatme nt plan. He understands the importance of taking his medications and keeping al l follow-up appointments. All questions were answered. [id number] gary l be provided to patient upon check-out. TOBACCO COUNSELING He was counseled to discontinue tobacco use. Body mass index is 26.95 kg/m. Data Unavailable Walter Oconnor MD documented in this encounter Plan of Treatment Not on filedocumented as of this encounter Visit Diagnoses Diagnosis Coronary artery disease involving nativ e coronary artery of [place] heart without angina pectoris - Primary Hyperlipidemia with target LDL less modesto n 70 Other and unspecified hyperlipidemia Essential hypertension Unspecified essential hypertension Tobacco dependence Tobacco use disorder documented in this encounter
--- OUTSIDE RECORDS SUMMARY | 2020-03-24 13:35 | XMS REPORT | Encounter Summary ---
Author Author [facility] [place], [place], [facility] Organization [facility] Zhanna Anderson, Jose Cruz, [facility] Address Unknown Phone Unavailable Care Team Providers Care Aircraft Quality Control Inspector Name Role Phone Claus Couch MD PCP Reason for Visit * Reason Comments Follow Up No cardiac symptoms or new issues per patient. Encounter Details Care Team Description Date Type Department Osiris Ibarra, COUNSELOR/ART THERAPIST 100 [facility] [address] [place] [id number] Coronary artery disease involving [place] coronary artery of [place] heart with angina pectoris (Primary Dx); Essential hypertension; Hyperlipidemia with target LDL less than 70; Type 2 diabetes mellitus with complication, without long-term current use of insulin; Other emphysema; Tobacco dependence 05/15/2019 Office Visit [address] [place] [address] [place] [address] Social History Date Tobacco Use Types Packs/Day [...] Travel Start No recent travel history available. documented as of this encounter Last Filed Vital Signs Reading Time Taken Comments Vital Sign 124/60 05/15/2019 9:24 AM CDT Blood Pressure 88 05/15/2019 9:24 AM CDT Pulse - - Temperature - - Respiratory Rate 96% 05/15/2019 9:24 AM CDT Oxygen Saturation - - Inhaled Oxygen Concentration - - Weight 167.6 cm (5' 6") 05/15/2019 9:24 AM CDT Height - - Body Mass Index documented in this encounter Progress Notes * Walter Oconnor MD - 05/15/2019 10:18 AM CDT agree * Osiris Ibarra FNP - 05/15/2019 9:21 AM CDT ROUTINE CARDIOLOGY VISIT Patient Name: Oliverio Dalton Visit Date: 05/15/19 Age/Sex: 68 y.o. male : 1950 Referring provider: Walter Oconnor MD Reason for consult: Chief Complaint Patient presents with Follow Up No cardiac symptoms or new issues per patient. HISTORY OF PRESENT ILLNESS Mr. Dalton is a 68-year-old gentleman here today for a cardiovascular follow-up. He last saw Dr. Ocnonor in June 2018 for CAD s/p PCI 01/2019, HTN, HDL, COPD, checo otine addiction and epilepsy. He is here today with family. He denies any ches t pain, pressure, heaviness or tightness. He does have shortness of breath that is unchanged since his last visit. Activity level is chronically decreased due to arthritic pains and discomforts. Uses a walker and wheelchair to get around. Denies any falls. Chronic lower extremity edema by the end of the day that d oes improve with elevation and medications. Denies any orthopnea or PND. Gener ally does not sleep well due to arthritic pains. He continues to smoke 1 pack o f cigarettes daily but reports he is going to try to quit as he cannot afford hi s cigarettes. Reports he only has 2 packs left and will try patches at that donis e. He takes his medications daily as ordered and does try to follow a heart [facility] diabetic diet [facility] 01/2019 SUMMARY: 1. Multi vessel coronary artery disease with multiple site chronic total occlus ions of the LAD as described above. There are severe serial lesions in the mid left circumflex and severe in-stent re-stenosis in the second obtuse marginal br anch of the left circumflex. The right coronary artery is non dominant and supp lies a right to left collateral to the apical LAD. 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 3. Patent saphenous vein graft to second diagonal branch of LAD. 4. Left internal mammary artery angiography revealing this vessel was not used for bypass graft. 5. Regional wall motion abnormalities of the left ventricle with estimated ejec tion fraction of 45%. 6. Successful although complex percutaneous vascularization of severe multi sit e disease in the left circumflex vessel using combined approach of pre dilatatio n and drug-eluting stent placement in the mid left circumflex as well as pre dil atation and drug-eluting stent placement for severe in-stent re-stenosis in the second obtuse marginal branch with good angiographic results. 7. Successful percutaneous closure of right femoral artery access site. ECHO 03/2019 IMPRESSION: 1. Left ventricular hypertrophy with diastolic dysfunction. 2. Preserved LV systolic function with overall ejection fraction estimated to be 60%. A small focal area of apical wall hypokinesis cannot be excluded. 3. Mild mitral regurgitation with left atrial enlargement. 4. Aortic valve sclerosis with mild aortic insufficiency. There is no signifi cant aortic stenosis. 5. Trivial to mild pulmonic insufficiency. Current Outpatient Medications on File Prior to Visit Medication Sig Dispense Refill aspirin (ECOTRIN EC) 81 mg Tablet, Delayed Release (E.C.) Take 1 Tablet (81 mg) by mouth daily. 30 Tablet 0 oxyCODONE-acetaminophen (PERCOCET) 10-325 mg Tablet Take 1 Tablet by mouth e very 6 hours as needed for Pain, Severe. Max Daily Amount: 4 Tablets 40 Tablet 0 belladonna alkaloids-opium (B&O 15A) 16.2-30 mg Suppository Insert 1 Suppository by rectum every 6 hours as needed (bladder spasms). Max Daily Amount: 4 Suppositories 10 Suppository 0 ramipril (ALTACE) 5 mg capsule Take 1 Capsule (5 mg) by mouth daily with regla ch. 30 Capsule 0 OLANZapine (ZYPREXA) 2.5 mg tablet Take 2.5 mg by mouth daily at bedtime. LORazepam (ATIVAN) 1 mg tablet Take 1 mg by mouth every 12 hours. traZODone (DESYREL) 50 mg tablet Take 50 mg by mouth daily at bedtime. nitroglycerin (NITROSTAT) 0.4 mg Tablet, Sublingual Place 0.4 mg under tongu e every 5 minutes as needed for Chest Pain. prochlorperazine maleate (COMPAZINE) 10 mg tablet Take 10 mg by mouth every 6 hours as needed for Nausea/Emesis. fluticasone (FLOVENT HFA) 110 mcg/actuation Inhalation Aero Take 1 Puff by i nhalation 2 times daily. 12 Gram 1 albuterol (PROAIR HFA) 90 mcg/Actuation Inhalation HFAA inhaler Take 2 Puffs by inhalation every 4 hours as needed for Shortness of Breath or Wheezing. 6.7 Gram 1 pioglitazone (ACTOS) 30 mg Oral tablet Take 30 mg by mouth daily with breakf ast. bethanechol (URECHOLINE) 25 mg Oral tablet Take 25 mg by mouth 4 times daily . clopidogrel (PLAVIX) 75 mg Oral Tab Take 75 mg by mouth daily. tamsulosin (FLOMAX) 0.4 mg Oral capsule Take 0.4 mg by mouth daily with supp er. FLUoxetine (PROZAC) 20 mg Oral tablet Take 40 mg by mouth daily. loratadine (CLARITIN) 10 mg Oral tablet Take 10 mg by mouth daily. magnesium oxide 250 mg Oral Tab Take 250 mg by mouth 3 times daily with meal s. phenytoin (DILANTIN) 200 mg Oral Cap Take 200 mg by mouth 2 times daily. esomeprazole (NEXIUM) 20 mg Oral CpDR Take 20 mg by mouth daily before break fast. multivitamin (DAILY-DAVID) Oral tablet Take 1 Tab by mouth daily after lunch. fenofibrate nanocrystallized (TRICOR) 145 mg Oral tablet Take 145 mg by mout h daily. ezetimibe (ZETIA) 10 mg Oral tablet Take 10 mg by mouth daily at bedtime. metoprolol succinate ER 24 hour (TOPROL-XL) 25 mg Oral tablet Take 12.5 mg b y mouth daily. simvastatin (ZOCOR) 40 mg Oral tablet Take 40 mg by mouth daily at bedtime. No current facility-administered medications on file prior to visit. PMHx The following portions of the patient's history were reviewed and updated as francis ropriate: Vitals, allergies, current medications, past medical history, problem list and social history. REVIEW OF SYSTEMS Review of Systems Constitutional: Negative for activity change, appetite change and fatigue. HENT: Negative for nosebleeds. Respiratory: Positive for cough (productive in am generally) and shortness of br eath (chronic, no changes). 1 pack cig daily Cardiovascular: Negative for chest pain, palpitations and leg swelling. Gastrointestinal: Negative for blood in stool. Musculoskeletal: Positive for arthralgias, back pain and gait problem (uses walk er and wheelchair routinely). Negative for myalgias. Neurological: Negative for seizures and light-headedness. Hematological: Bruises/bleeds easily. Psychiatric/Behavioral: Negative for sleep disturbance (does not sleep good at n ight, denies orthopnea/PND wears oxygen at 2L/NC). PHYSICAL EXAM BP 124/60 | Pulse 88 | Ht 5' 6" (1.676 m) | SpO2 96% | BMI 26.95 kg/m Physical Exam Constitutional: He is oriented to person, place, and time. Vital signs are anish l. He appears well-developed and well-nourished. HENT: Head: Normocephalic and atraumatic. Neck: No JVD present. Carotid bruit is not present. Cardiovascular: Normal rate and regular rhythm. Exam reveals no distant heart so unds. No murmur heard. Pulses: Radial pulses are 2+ on the right side, and 2+ on the left side. Posterior tibial pulses are 2+ on the right side, and 2+ on the left side. Pulmonary/Chest: Effort normal. He has no decreased breath sounds. He has no whe ezes. He has no rhonchi. He has no rales. Abdominal: Normal appearance. He exhibits no distension (soft). There is no tend erness. Musculoskeletal: He exhibits no edema. Right ankle: He exhibits no swelling. Left ankle: He exhibits no swelling. Neurological: He is alert and oriented to person, place, and time. In wheelchair, did not observe walking today Skin: Skin is warm and dry. Psychiatric: He has a normal mood and affect. His speech is normal and behavior is normal. Vitals reviewed. CARDIOVASCULAR TESTING EJECTION FRACTION Date Value Ref Range Status 03/27/2019 60 50 - 65 % Final I have reviewed his prior cardiovascular testing, labs and studies as pertinent to this visit and reviewed these findings with him. The ASCVD Risk score (Brandeelauren FLYNN Jr., et al., 2013) failed to calculate for the fol lowing reasons: The valid total cholesterol range is 130 to 320 mg/dL ASSESSMENT and PLAN: Encounter Diagnoses Name Primary? Coronary artery disease involving [place] coronary artery of [place] heart wit h angina pectoris Yes Essential hypertension Hyperlipidemia with target LDL less than 70 Type 2 diabetes mellitus with complication, without long-term current use of insulin Other emphysema Tobacco dependence No orders of the defined types were placed in this encounter. DISCUSSION 1. Diet recommendations: low sodium diet less than 2000 mg daily. AHA/DASH/ADA diet discussed. 2. Lab per PCP 3. No changes in medications at this time 4. Recommend routine follow-up as scheduled with PCP or sooner if indicated. He denies any questions. He voiced understanding and agreement with the treatme nt plan. He understands the importance of taking his medications and keeping al l follow-up appointments. All questions were answered. Exgbz-Ootrs-Iummrnx gary pierre be provided to patient upon check-out. TOBACCO COUNSELING He was counseled to discontinue tobacco use. Return in about 9 months (around 02/14/2020), or if symptoms worsen or fail to imp rove, for Dr. Oconnor or sooner if indicated. REBECCA Palmer NOTE: Portions of the above were dictated and transcribed using [employer] dictation. Although every attempt is made for accuracy, occasionally errors are made. Overt mistakes are usually fixed, but small typos may be missed. Plea se disregard these - please inform me of any overtly incorrect portions, and I w ill correct documented in this encounter Miscellaneous Notes * Patient Instructions - Osiris Ibarra FNP - 05/15/2019 9:55 AM CDT Oliverio Dalton Please monitor and record blood pressure (BP) and heart rate (HR) daily - altern ating times of day between morning, afternoon, and evening. Call if BP consisten tly greater than 140 (top number) and/or 90 (bottom number). Also monitor BP and HR if you have any signs or symptoms such as dizziness, weakness, "different" f eeling - take your blood pressure and record and write the symptoms you were fee ling at that time. Please send me a copy of your blood pressure readings in 2-4 weeks for review. The goal for diabetes is less than 130 on the top and 85 on the bottom. This is a good goal for everyone. Bring your blood pressure readings to your doctor appointments, so they can be r eviewed. Call me if you have any questions. No changes in medications at this time Oliverio Dalton 1950 Date/Time BP HR documented in this encounter Plan of Treatment Not on filedocumented as of this encounter Visit Diagnoses Diagnosis Coronary artery disease involving nativ e coronary artery of [place] heart with angina pectoris - Primary Essential hypertension Unspecified essential hypertension Hyperlipidemia with target LDL less modesto n 70 Other and unspecified hyperlipidemia Type 2 diabetes mellitus with complicat ion, without long-term current use of insulin Other emphysema Tobacco dependence Tobacco use disorder documented in this encounter
--- OUTSIDE RECORDS SUMMARY | 2020-03-24 13:35 | XMS REPORT | Encounter Summary ---
Author Author [facility] [place], [place], [place] Organization [facility] Amos Go, Zhanna, Jose Cruz, [place] Address Unknown Phone Unavailable Care Team Providers Care Systems Support Engineer Name Role Phone Claus Couch MD PCP Reason for Visit * Reason Comments Results Encounter Details Care Team Description Date Type Department Walter Oconnor MD [address] [facility] [address] [place] [phone] Results 03/28/2019 Telephone [facility] [place] [address] [facility] [address] [place] [phone] [...] history available. documented as of this encounter Miscellaneous Notes * Telephone Encounter - Beverley Marsh RN - 03/28/2019 11:49 AM CDT Spoke with patient and advised of echo results, patient voiced understanding and was appreciative of call. Denies further questions or concerns, return number galen may and encouraged to call should any arise. Voiced understanding. * Telephone Encounter - Beverley Marsh RN - 03/28/2019 11:48 AM CDT ----- Message from Walter Oconnor MD sent at 03/28/2019 11:02 AM CDT ----- Cont the same documented in this encounter Plan of Treatment Not on filedocumented as of this encounter Visit Diagnoses Not on filedocumented in this encounter
--- OUTSIDE RECORDS SUMMARY | 2020-03-24 13:36 | XMS REPORT | Encounter Summary ---
Author Author [facility], [place], [place], [facility] Organization [facility] Amos Go, [place], Jose Cruz, [facility] Address Unknown Phone Unavailable Care Team Providers Care Sole Buffer Name Role Phone Claus Couch MD PCP Reason for Visit * Reason Comments Chest Pain * Auth/Cert Referred By Contact Referred To Contact Status Reason Specialty Diagnoses / Procedures [facility] 3 Medical Surgical [address] [place] [address] [place] [id number] Multi Specialty Encounter Details Care Team Description Date Type Department Stanford Brown MD [address] [place] [address] [place] [address] Ernie Caruso MD [address] [place] [address] [place] [address] Althea Gilliland DO [address] [place] [address] [place] [address] Chest pain 01/29/2019 Emergency [facility] in 3rd - Floor Medical Surgical 02/01/[address] [place] [address] [place] [address] Social History Date Tobacco Use Types [...] Signs Reading Time Taken Comments Vital Sign 116/58 02/01/2019 12:09 PM CDT Blood Pressure 66 02/01/2019 12:09 PM CDT Pulse 36.5 C (97.7 F) 02/01/2019 12:09 PM CDT Temperature 20 02/01/2019 12:09 PM CDT Respiratory Rate 99% 02/01/2019 12:09 PM CDT Oxygen Saturation - - Inhaled Oxygen Concentration 73.9 kg (162 lb 14.7 oz) 02/01/2019 3:40 AM CDT Weight 165.1 cm (5' 5") 01/30/2019 12:53 AM CDT Height 27.11 01/30/2019 12:53 AM CDT Body Mass Index documented in this encounter Discharge Summaries * Althea Gilliland DO - 02/01/2019 9:08 AM CDT Physician Discharge Summary Patient: Oliverio Tinsley / 68 y.o. / male : 1950 Admit date: 01/29/2019 Admitting Diagnoses: chest pain possible ACS, UTI Discharge Diagnoses: chest pain d/t unstable angina and CAD, UTI Attending Physician: Hospitalist Consults: cardiology. 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 Hospital Course: Patient was admitted to [facility] d/t his CAD risk and elevated sens itive troponin. His troponin delta remained flat but his stress test was signifi cantly abnormal. He went for cardiac cath at which time he received 2 stents to his LCx/OM. He has been chest pain free since that time. He was found to have > 100 WBC's in his urine. His culture grew multiple organisms. Discharge date: 02/01/2019 Discharging Physician: Althea Gilliland DO Discharge Exam: BP 137/62 (BP Location: Left arm, Patient Position (BP): Supine) | Pulse 76 | Temp 98.3 F (36.8 C) (Oral) | Resp 20 | Ht 5' 5" (1.651 m) | Wt 73.9 kg ( 162 lb 14.7 oz) | SpO2 99% | BMI 27.11 kg/m Lungs: clear to auscultation bilaterally, normal respiratory effort Heart: normal rate, regular rhythm, normal S1, S2, no murmurs, rubs, clicks or g allops Abdomen: Soft, non-tender. Bowel sounds normal. No masses, no organomegaly. Discharge Condition: stable. Disposition: home. MEDICATIONS Prior to admission: Prescriptions Prior to Admission Medication Sig Dispense Refill Last Dose oxyCODONE-acetaminophen (PERCOCET) 10-325 mg Tablet Take 1 Tablet by mouth e very 6 hours as needed for Pain, Severe. Max Daily Amount: 4 Tablets 40 Tablet 0 01/29/2019 at Unknown time ramipril (ALTACE) 5 mg capsule Take 1 Capsule (5 mg) by mouth daily with regla ch. 30 Capsule 0 01/29/2019 at Unknown time OLANZapine (ZYPREXA) 2.5 mg tablet Take 2.5 mg by mouth daily at bedtime. 01/29/2019 at Unknown time traZODone (DESYREL) 50 mg tablet Take 50 mg by mouth daily at bedtime. 01/07 at Unknown time nitroglycerin (NITROSTAT) 0.4 mg Tablet, Sublingual Place 0.4 mg under tongu e every 5 minutes as needed for Chest Pain. Past Month at Unknown time fluticasone (FLOVENT HFA) 110 mcg/actuation Inhalation Aero Take 1 Puff by i nhalation 2 times daily. 12 Gram 1 01/29/2019 at Unknown time albuterol (PROAIR HFA) 90 mcg/Actuation Inhalation HFAA inhaler Take 2 Puffs by inhalation every 4 hours as needed for Shortness of Breath or Wheezing. 6.7 Gram 1 01/29/2019 at Unknown time bethanechol (URECHOLINE) 25 mg Oral tablet Take 25 mg by mouth 4 times daily . 01/29/2019 at Unknown time clopidogrel (PLAVIX) 75 mg Oral Tab Take 75 mg by mouth daily. 01/29/2019 at Unknown time tamsulosin (FLOMAX) 0.4 mg Oral capsule Take 0.4 mg by mouth daily with supp er. 01/29/2019 at Unknown time FLUoxetine (PROZAC) 20 mg Oral tablet Take 40 mg by mouth daily. 01/30/20 19 at Unknown time magnesium oxide 250 mg Oral Tab Take 250 mg by mouth 3 times daily with meal s. 01/29/2019 at Unknown time esomeprazole (NEXIUM) 20 mg Oral CpDR Take 20 mg by mouth daily before break fast. 01/29/2019 at Unknown time multivitamin (DAILY-DAVID) Oral tablet Take 1 Tab by mouth daily after lunch. 01/29/2019 at Unknown time fenofibrate nanocrystallized (TRICOR) 145 mg Oral tablet Take 145 mg by mout h daily. 01/29/2019 at Unknown time ezetimibe (ZETIA) 10 mg Oral tablet Take 10 mg by mouth daily at bedtime. 01/29/2019 at Unknown time metoprolol succinate ER 24 hour (TOPROL-XL) 25 mg Oral tablet Take 12.5 mg b y mouth daily. 01/29/2019 at Unknown time simvastatin (ZOCOR) 40 mg Oral tablet Take 40 mg by mouth daily at bedtime. 01/29/2019 at Unknown time belladonna alkaloids-opium (B&O 15A) 16.2-30 mg Suppository Insert 1 Suppository by rectum every 6 hours as needed (bladder spasms). Max Daily Amount: 4 Suppositories 10 Suppository 0 Unknown at Unknown time LORazepam (ATIVAN) 1 mg tablet Take 1 mg by mouth every 12 hours. 8 at Unknown time prochlorperazine maleate (COMPAZINE) 10 mg tablet Take 10 mg by mouth every 6 hours as needed for Nausea/Emesis. 07/04/2018 at Unknown time pioglitazone (ACTOS) 30 mg Oral tablet Take 30 mg by mouth daily with breakf ast. 07/04/2018 at Unknown time loratadine (CLARITIN) 10 mg Oral tablet Take 10 mg by mouth daily. 2017 at Unknown time phenytoin (DILANTIN) 200 mg Oral Cap Take 200 mg by mouth 2 times daily. 07/04/2018 at Unknown time Discharge medications and new prescriptions: Medication List START taking these medications aspirin 81 mg Tablet, Delayed Release (E.C.) Commonly known as: ECOTRIN EC Take 1 Tablet (81 mg) by mouth daily. Signed by: Althea Gilliland DO Quantity: 30 Tablet Refills: 0 cefdinir 300 mg capsule Commonly known as: OMNICEF Take 1 Capsule (300 mg) by mouth every 12 hours for 7 days. Signed by: Althea Gilliland DO Quantity: 14 Capsule Refills: 0 CONTINUE taking these medications albuterol sulfate 90 mcg/Actuation inhaler Commonly known as: PROAIR HFA Take 2 Puffs by inhalation every 4 hours as needed for Shortness of Breath or Wh eezing. Signed by: Junior Duque DO Quantity: 6.7 Gram Refills: 1 belladonna alkaloids-opium 16.2-30 mg Suppository Commonly known as: B&O 15A Insert 1 Suppository by rectum every 6 hours as needed (bladder spasms). Max Consuelo ly Amount: 4 Suppositories Signed by: Yoshi Abraham MD Quantity: 10 Suppository Refills: 0 bethanechol 25 mg tablet Commonly known as: URECHOLINE Take 25 mg by mouth 4 times daily. Refills: 0 CLARITIN 10 mg tablet Take 10 mg by mouth daily. Refills: 0 Generic drug: loratadine clopidogrel 75 mg Tablet Commonly known as: PLAVIX Take 75 mg by mouth daily. Refills: 0 esomeprazole 20 mg Capsule, Delayed Release(E.C.) Commonly known as: NexIUM Take 20 mg by mouth daily before breakfast. Refills: 0 ezetimibe 10 mg tablet Commonly known as: ZETIA Take 10 mg by mouth daily at bedtime. Refills: 0 fenofibrate nanocrystallized 145 mg tablet Commonly known as: TRICOR Take 145 mg by mouth daily. Refills: 0 FLOMAX 0.4 mg capsule Take 0.4 mg by mouth daily with supper. Refills: 0 Generic drug: tamsulosin FLUoxetine 20 mg tablet Commonly known as: PROzac Take 40 mg by mouth daily. Refills: 0 fluticasone 110 mcg/actuation HFA Aerosol Inhaler Commonly known as: FLOVENT HFA Take 1 Puff by inhalation 2 times daily. Signed by: Junior Duque DO Quantity: 12 Gram Refills: 1 LORazepam 1 mg tablet Commonly known as: ATIVAN Take 1 mg by mouth every 12 hours. Refills: 0 magnesium oxide 250 mg magnesium Tablet Take 250 mg by mouth 3 times daily with meals. Refills: 0 metoprolol succinate 25 mg Extended Release 24 hour tablet Commonly known as: TOPROL XL Take 12.5 mg by mouth daily. Refills: 0 multivitamin tablet Commonly known as: DAILY-DAVID Take 1 Tab by mouth daily after lunch. Refills: 0 nitroglycerin 0.4 mg Tablet, Sublingual Commonly known as: NITROSTAT Place 0.4 mg under tongue every 5 minutes as needed for Chest Pain. Refills: 0 OLANZapine 2.5 mg tablet Commonly known as: ZyPREXA Take 2.5 mg by mouth daily at bedtime. Refills: 0 oxyCODONE-acetaminophen 10-325 mg Tablet Commonly known as: PERCOCET Take 1 Tablet by mouth every 6 hours as needed for Pain, Severe. Max Daily Amoun t: 4 Tablets Signed by: Blayne Foss MD Quantity: 40 Tablet Refills: 0 phenytoin 200 mg Capsule Commonly known as: DILANTIN Take 200 mg by mouth 2 times daily. Refills: 0 pioglitazone 30 mg tablet Commonly known as: ACTOS Take 30 mg by mouth daily with breakfast. Refills: 0 prochlorperazine maleate 10 mg tablet Commonly known as: COMPAZINE Take 10 mg by mouth every 6 hours as needed for Nausea/Emesis. Refills: 0 ramipril 5 mg capsule Commonly known as: ALTACE Take 1 Capsule (5 mg) by mouth daily with lunch. Signed by: Yoshi Abraham MD Quantity: 30 Capsule Refills: 0 simvastatin 40 mg tablet Commonly known as: ZOCOR Take 40 mg by mouth daily at bedtime. Refills: 0 traZODone 50 mg tablet Commonly known as: DESYREL Take 50 mg by mouth daily at bedtime. Refills: 0 Where to Get Your Medications These medications were sent to [facility] [address] [place] [address], [place] - [address] [facility] [address] [facility] [address] aspirin 81 mg Tablet, Delayed Release (E.C.) cefdinir 300 mg capsule Patient instructions: Activity: activity as tolerated. Diet: Cardiac Diet. Follow-up with Claus Couch MD in one week. Follow up with Dr. Oconnor's office in 2-4 weeks w/nurse practitioner [facility], WE CAN NOT REFILL PRESCRIPTIONS OR PRESCRIBE NEW MED ICATIONS AFTER DISCHARGE. PLEASE CONTACT ONE OF YOUR OUTPATIENT PHYSICIANS IF Y OU NEED MEDICATION IN THE FUTURE. This discharge took > 30 minutes. Signed: Althea Gilliland DO 02/01/2019, 9:08 AM Cc: Claus Couch MD documented in this encounter Discharge Instructions * Instructions* Althea Gilliland DO - 02/01/2019 Activity: activity as tolerated. Diet: Cardiac Diet. Follow-up with Claus Couch MD in one week. Follow up with Dr. Oconnor's office in 2-4 weeks w/nurse practitioner [facility], WE CAN NOT REFILL PRESCRIPTIONS OR PRESCRIBE NEW MED ICATIONS AFTER DISCHARGE. PLEASE CONTACT ONE OF YOUR OUTPATIENT PHYSICIANS IF Y OU NEED MEDICATION IN THE FUTURE. * Attachments The following attachments cannot be sent through Care Everywhere.* cefdinir (Faroese) * Chest Pain (Faroese) documented in this encounter Medications at Time of Discharge Start Date End Date Medication Sig Dispensed Refills 02/01/2019 aspirin (ECOTRIN EC) 81 Take 1 Tablet 30 Tablet 0 mg Tablet, Delayed (81 mg) by Release (E.C.) mouth daily. 07/20/2018 oxyCODONE-acetaminophen Take 1 Tablet 40 Tablet 0 (PERCOCET) 10-325 mg by mouth Tablet every 6 hours as needed for Pain, Severe. Max Daily Amount: 4 Tablets 09/06/2017 belladonna Insert 1 10 0 alkaloids-opium (B&O 15A) Suppository Suppository 16.2-30 mg Suppository by rectum every 6 hours as needed (bladder spasms). Max Daily Amount: 4 Suppositories 09/06/2017 ramipril (ALTACE) 5 mg Take 1 30 Capsule 0 capsule Capsule (5 mg) by mouth daily with lunch. OLANZapine (ZYPREXA) 2.5 Take 2.5 mg 0 mg tablet by mouth daily at bedtime. LORazepam (ATIVAN) 1 mg Take 1 mg by 0 tablet mouth every 12 hours. traZODone (DESYREL) 50 mg Take 50 mg by 0 tablet mouth daily at bedtime. prochlorperazine maleate Take 10 mg by 0 (COMPAZINE) 10 mg tablet mouth every 6 hours as needed for Nausea/Emesis . pioglitazone (ACTOS) 30 Take 30 mg by 0 mg Oral tablet mouth daily with breakfast. bethanechol (URECHOLINE) Take 25 mg by 0 25 mg Oral tablet mouth 4 times daily. clopidogrel (PLAVIX) 75 Take 75 mg by 0 mg Oral Tab mouth daily. tamsulosin (FLOMAX) 0.4 Take 0.4 mg 0 mg Oral capsule by mouth daily with supper. FLUoxetine (PROZAC) 20 mg Take 40 mg by 0 Oral tablet mouth daily. loratadine (CLARITIN) 10 Take 10 mg by 0 mg Oral tablet mouth daily. magnesium oxide 250 mg Take 250 mg 0 Oral Tab by mouth 3 times daily with meals. phenytoin (DILANTIN) 200 Take 200 mg 0 mg Oral Cap by mouth 2 times daily. esomeprazole (NEXIUM) 20 Take 20 mg by 0 mg Oral CpDR mouth daily before breakfast. multivitamin (DAILY-DAVID) Take 1 Tab by 0 Oral tablet mouth daily after lunch. fenofibrate Take 145 mg 0 nanocrystallized (TRICOR) by mouth 145 mg Oral tablet daily. ezetimibe (ZETIA) 10 mg Take 10 mg by 0 Oral tablet mouth daily at bedtime. simvastatin (ZOCOR) 40 mg Take 40 mg by 0 Oral tablet mouth daily at bedtime. nitroglycerin (NITROSTAT) Place 0.4 mg 0 0.4 mg Tablet, Sublingual under tongue every 5 minutes as needed for Chest Pain. 2012 fluticasone (FLOVENT HFA) Take 1 Puff 12 Gram 1 110 mcg/actuation by inhalation Inhalation Aero 2 times daily. 2012 albuterol (PROAIR HFA) 90 Take 2 Puffs 6.7 Gram 1 mcg/Actuation Inhalation by inhalation HFAA inhaler every 4 hours as needed for Shortness of Breath or Wheezing. 02/01/2019 02/08/2019 cefdinir (OMNICEF) 300 mg Take 1 14 Capsule 0 capsule Capsule (300 mg) by mouth every 12 hours for 7 days. documented as of this encounter Progress Notes * Ade Kwon RN - 02/01/2019 2:49 PM CDT Patient Alert and oriented x4. VSS and afebrile. IV removed and pressure dressin g applied; patient tolerated well. Discharge instructions and medication educati on provided to patient and patient verbalizes understanding. Discharge papers an d message from medicare signed. Medications sent to [facility] in [facility] to be p icked up by patient. Patient wheeled down to ride with all belongings. * Dai Sarmiento RN - 02/01/2019 2:20 PM CDT Pt discharged home with family. Discharge instructions and education provided. Prescriptions called to [facility] in [place], [place] * Walter Oconnor MD - 02/01/2019 8:47 AM CDT SUBJECTIVE: Mr. Tinsley feels improved. Mr. Tinsley does not have cardiac sounding chest pain. Karena Tinsley does not have shortness of breath. Overall, his cardiac status has sign ificantly improved. OBJECTIVE: Blood pressure 137/62, pulse 76, temperature 98.3 F (36.8 C), temperature so urce Oral, resp. rate 20, height 5' 5" (1.651 m), weight 73.9 kg (162 lb 14.7 oz ), SpO2 99 %. Intake/Output Summary (Last 24 hours) at 02/01/19 0847 Last data filed at 02/01/19 0100 Gross per 24 hour Intake 240 ml Output 1950 ml Net -1710 ml General appearance: alert, in no distress Lungs: clear to auscultation bilaterally, normal respiratory effort Heart: normal rate, regular rhythm, normal S1, S2, no murmurs, rubs, clicks or g allops Extremities: extremities normal, atraumatic, no cyanosis or edema, groin site ok Neurologic: Grossly normal TEST RESULTS: Telemetry: SR CBC: Lab Results Component Value Date/Time WBC 6.7 01/30/2019 01:10 AM RBC 4.24 (L) 01/30/2019 01:10 AM HGB 10.7 (L) 02/01/2019 12:22 AM HCT 34.7 (L) 02/01/2019 12:22 AM PLT 277 01/30/2019 01:10 AM BMP: Lab Results Component Value Date/Time NA 136 02/01/2019 12:22 AM K 4.4 02/01/2019 12:22 AM CL 101 02/01/2019 12:22 AM CO2 24 02/01/2019 12:22 AM CA 8.8 02/01/2019 12:22 AM BUN 18 02/01/2019 12:22 AM CREAT 0.85 02/01/2019 12:22 AM GLUCOSE 112 (H) 02/01/2019 12:22 AM ANIONGAP 11 02/01/2019 12:22 AM LFTS: Lab Results Component Value Date/Time TOTALPROTEIN 6.8 01/30/2019 01:10 AM ALBUMIN 3.8 (L) 01/30/2019 01:10 AM BILITOTAL 0.3 01/30/2019 01:10 AM ALKPHOS 138 (H) 01/30/2019 01:10 AM AST 219 (H) 01/30/2019 01:10 AM ALT 51 (H) 01/30/2019 01:10 AM Coagulation: Lab Results Component Value Date/Time PT 15.3 (H) 01/30/2019 01:10 AM INR 1.2 01/30/2019 01:10 AM APTT 32.9 09/02/2012 03:25 PM Cardiac markers: Lab Results Component Value Date/Time CKMB 2.1 2012 04:23 AM TROPONIN I <0.06 2012 04:23 AM I personally have or will review the following today: labs, radiologic tests, as available. 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 Continue risk factor modification. Ok to discharge Plavix [employer] return 2-4 weeks Walter Oconnor MD 02/01/2019 8:47 AM * Althea Gilliland DO - 01/31/2019 1:18 PM CDT Admit Date: 01/29/2019 Subjective: CC: chest pain Patient is w/o complaints. He has had no further chest pain. Medications and orders reviewed. Objective: Patient Vitals for the past 8 hrs: BP Temp Temp src Pulse Resp SpO2 01/31/19 1145 (!) 141/66 - - 73 18 - 01/31/19 1046 128/74 98.6 F (37 C) Oral 72 18 99 % Intake/Output Summary (Last 24 hours) at 01/31/19 1318 Last data filed at 01/31/19 1144 Gross per 24 hour Intake 790 ml Output 1120 ml Net -330 ml BP (!) 141/66 (BP Location: Left arm, Patient Position (BP): Supine) | Pulse 73 | Temp 98.6 F (37 C) (Oral) | Resp 18 | Ht 5' 5" (1.651 m) | Wt 74.8 kg (165 lb) | SpO2 99% | BMI 27.46 kg/m POC GLUCOSE Date Value Ref Range Status 01/31/2019 147 (H) 74 - 99 mg/dL Final 01/31/2019 96 74 - 99 mg/dL Final 01/30/2019 75 74 - 99 mg/dL Final General appearance: alert, in no distress Head: atraumatic, Normocephalic, without obvious abnormality Eyes: sclera clear Throat: mucous membranes moist Lungs: clear to auscultation bilaterally, normal respiratory effort Heart: normal rate, regular rhythm, normal S1, S2, no murmurs, rubs, clicks or g allops Abdomen: Soft, non-tender. Bowel sounds normal. No masses, no organomegaly. Extremities: extremities normal, atraumatic, no cyanosis or edema Neurologic: Grossly normal DATA Review Results for orders placed or performed during the hospital encounter of 01/29/19 (from the past 24 hour(s)) URINALYSIS WITH REFLEX CULTURE Result Value Ref Range COLOR UA Yellow Pale to dark yellow CLARITY UA Slightly Cloudy (A) Clear SPECIFIC GRAVITY UA 1.008 1.003 - 1.035 PH UA 6.0 5.0 - 8.0 LEUKOCYTE ESTERASE UA 3+ (A) Negative NITRITE UA Positive (A) Negative PROTEIN UA Negative Negative GLUCOSE UA Negative Negative KETONES UA Trace (A) Negative UROBILINOGEN UA <2.0 <2.0 mg/dL BILIRUBIN UA Negative Negative BLOOD UA 2+ (A) Negative WBC UA >100 (A) 0 - 2 /hpf RBC UA 6-10 (A) 0 - 2 /hpf BACTERIA UA 2+ (A) Negative /hpf EPITHELIAL CELLS, URINE 0-5 0 - 5 /hpf HYALINE CAST 0-2 None Seen, 0-2 /lpf AMORPHOUS CRYSTAL Present (A) Absent WBC CLUMPS Present (A) Absent URINE CULTURE Result Value Ref Range CULTURE Culture in progress POC GLUCOSE Result Value Ref Range POC GLUCOSE 207 (H) 74 - 99 mg/dL OPTICAL GLASS ETCHER NAME Mary Braga POC GLUCOSE Result Value Ref Range POC GLUCOSE 75 74 - 99 mg/dL OPTICAL GLASS ETCHER NAME ranjana espinoza POC GLUCOSE Result Value Ref Range POC GLUCOSE 96 74 - 99 mg/dL OPTICAL GLASS ETCHER NAME Fransisca Jerez CL LT HEART CATHETERIZATION Result Value Ref Range EJECTION FRACTION 45 50 - 65 % POC GLUCOSE Result Value Ref Range POC GLUCOSE 147 (H) 74 - 99 mg/dL OPTICAL GLASS ETCHER NAME Mary Braga Assessment: Principal Problem: Chest pain Active Problems: Coronary artery disease involving alutiiq coronary 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 RN at bedside upon arrival. G mckenna site checked, no oozing, no hematoma. * Althea Gilliland DO - 01/30/2019 1:27 PM CDT Admit Date: 01/29/2019 Subjective: CC: chest pain Chart reviewed and patient examined. Check out received from Dr. Leonard. Patient has not had any further chest pain. Medications and orders reviewed. Objective: Patient Vitals for the past 8 hrs: BP Pulse Resp SpO2 01/30/19 1025 (!) 143/64 95 - 99 % 01/30/19 1024 (!) 140/61 97 - 98 % 01/30/19 1023 138/68 - - 100 % 01/30/19 1022 132/68 98 - 99 % 01/30/19 1021 (!) 157/67 98 - 100 % 01/30/19 0953 (!) 164/85 87 - 98 % 01/30/19 0745 (!) 148/72 89 18 99 % Intake/Output Summary (Last 24 hours) at 01/30/19 1328 Last data filed at 01/30/19 0727 Gross per 24 hour Intake 0 ml Output 650 ml Net -650 ml BP (!) 143/64 | Pulse 95 | Temp 98 F (36.7 C) (Oral) | Resp 18 | Ht 5' 5 " (1.651 m) | Wt 79.1 kg (174 lb 6.4 oz) | SpO2 99% | BMI 29.02 kg/m POC GLUCOSE Date Value Ref Range Status 01/30/2019 133 (H) 74 - 99 mg/dL Final 01/30/2019 124 (H) 74 - 99 mg/dL Final 07/09/2018 172 (H) 74 - 99 mg/dL Final General appearance: alert, in no distress Head: atraumatic, Normocephalic, without obvious abnormality Eyes: sclera clear Throat: mucous membranes moist Lungs: clear to auscultation bilaterally, normal respiratory effort Heart: normal rate, regular rhythm, normal S1, S2, no murmurs, rubs, clicks or g allops Abdomen: Soft, non-tender. Bowel sounds normal. No masses, no organomegaly. Extremities: extremities normal, atraumatic, no cyanosis or edema Neurologic: Grossly normal DATA Review Results for orders placed or performed during the hospital encounter of 01/29/19 (from the past 24 hour(s)) TROPONIN 2 HR, 5TH GEN Result Value Ref Range TROPONIN T, 2 HR 5TH GEN 38 (H) <=15 ng/L HEMOGLOBIN A1C Result Value Ref Range HEMOGLOBIN A1C 6.1 (H) 4.8 - 5.9 % EST. AVG GLUCOSE, A1C 128 mg/dL TSH Result Value Ref Range TSH 1.06 0.27 - 4.20 uIU/mL CBC WITH DIFFERENTIAL Result Value Ref Range WBC 6.7 4.0 - 11.0 K/uL RBC 4.24 (L) 4.70 - 6.00 M/uL HEMOGLOBIN 11.3 (L) 13.5 - 18.0 g/dL HEMATOCRIT 36.5 (L) 42.0 - 52.0 % MCV 86.1 78.0 - 100.0 fL MCH 26.7 (L) 27.0 - 34.0 pg MCHC 31.0 31.0 - 37.0 g/dL RDW 15.7 (H) 12.0 - 15.0 % RDW-STDEV 48.9 (H) 37.1 - 48.7 fL PLATELETS 277 150 - 450 K/uL MPV 8.2 (L) 9.3 - 12.4 fL NEUTROPHILS 61 31 - 76 % LYMPHOCYTES 27 24 - 44 % MONOCYTES 10 2 - 11 % EOSINOPHILS 2 0 - 6 % BASOPHILS 0 0 - 2 % IMMATURE GRANULOCYTES 1 0 - 2 % NEUTROPHIL ABSOLUTE 4.05 1.80 - 7.70 K/uL LYMPHOCYTE ABSOLUTE 1.81 1.00 - 4.80 K/uL MONOCYTE ABSOLUTE 0.64 0.10 - 1.30 K/uL EOSINOPHIL ABSOLUTE 0.13 0.00 - 0.70 K/uL BASOPHILS ABSOLUTE 0.01 0.00 - 0.20 K/uL IMMATURE GRANULOCYTES ABSOLUTE 0.04 0.00 - 0.10 K/uL PROTIME-INR Result Value Ref Range PROTIME 15.3 (H) 11.8 - 14.6 Seconds INR 1.2 0.9 - 1.2 COMPREHENSIVE METABOLIC PANEL Result Value Ref Range SODIUM 135 (L) 136 - 145 mmol/L POTASSIUM 4.4 3.5 - 5.1 mmol/L CHLORIDE 100 98 - 107 mmol/L CO2 22 22 - 29 mmol/L CALCIUM 9.0 8.8 - 10.2 mg/dL BUN 19 8 - 23 mg/dL CREATININE 0.90 0.67 - 1.17 mg/dL GLUCOSE 135 (H) 74 - 99 mg/dL TOTAL PROTEIN 6.8 6.4 - 8.3 g/dL ALBUMIN 3.8 (L) 4.0 - 4.9 g/dL BILIRUBIN TOTAL 0.3 <=1.2 mg/dL ALKALINE PHOSPHATASE 138 (H) 40 - 129 U/L AST 219 (H) 0 - 40 U/L ALT 51 (H) 0 - 41 U/L GFR >60 >=60 mL/min/1.73 sq meter GFR, >60 >=60 mL/min/1.73 sq meter ANION GAP 13 4 - 13 mmol/L TROPONIN 6 HR, 5TH GEN Result Value Ref Range TROPONIN T, 6 HR 5TH GEN 37 (H) <=15 ng/L POC GLUCOSE Result Value Ref Range POC GLUCOSE 124 (H) 74 - 99 mg/dL OPTICAL GLASS ETCHER NAME dora cardoso LIPID PANEL Result Value Ref Range CHOLESTEROL 121 <200 mg/dL TRIGLYCERIDE 163 (H) <150 mg/dL HDL 42 40 - 59 mg/dL LDL CALCULATED 46 <100 mg/dL NON-HDL CHOLESTEROL 79 <130 mg/dL POC GLUCOSE Result Value Ref Range POC GLUCOSE 133 (H) 74 - 99 mg/dL OPTICAL GLASS ETCHER NAME Mary Braga MYOCARD PERF IMAG SPECT MULT Result Value Ref Range EJECTION FRACTION 57 50 - 65 % Stress test: 1. Small reversible defect, anteroseptal wall towards apex. 2. Small fixed defect, apex. 3. Moderate to large reversible defect inferior wall with considerable improvement compared to prior imaging. 4. Normal left ventricle ejection fraction of 57%. Assessment: Principal Problem: Chest pain Active Problems: Coronary artery disease involving alutiiq coronary artery of alutiiq heart wi th angina pectoris COPD (chronic obstructive pulmonary disease) Type 2 diabetes mellitus Elevated troponin Epilepsy Plan: Consult cardiology Continue accu checks/SSI See orders * Shanti Hartman PA - 01/30/2019 1:09 PM CDT REMOTE ENDOCRINE/GLYCEMIC ROUNDING TEAM NOTE: Glucose accordion reviewed. Decrease Humalog correction to medium ac, hs and 02 00 to prevent hypoglycemia. ROLAND [facility] Endocrin[facility] * Justine Lucas, RN - 01/30/2019 11:00 AM CDT Pt's nausea returned. Dr. Santillan consulted, pt administered 4 mg of IV Zofran as o rdered by Dr. Santillan. * Justine Lucas, RN - 01/30/2019 10:00 AM CDT Pt nausea and dry heaving prior to pharm stress test. Administered 4 mg Zofran O DT. 1028 pt denies nausea post stress test. documented in this encounter H&P Notes * Ernie Caruso MD - 01/29/2019 11:21 PM CDT Hospitalist Admission History and Physical PATIENT: Oliverio Tinsley AGE: 68 y.o. CSN: [id number] : 1950 PCP: Claus Couch MD HPI: Oliverio Tinsley is a 68 y.o. White male a patient of Claus Couch MD with a past medical history significant for coronary artery disease/CABG, CHF, COPD, HLD, diabetes mellitus, hypertension, peripheral vascular disease, seizure diso rder who is being admitted through the emergency room with chief complaint of meredith bsternal pressure-like chest pain 8 out of 10 intensity nonradiating. Patient d enies fever, chills, shortness of breath, nausea, dizziness. Will proceed for a dmission with a primary diagnosis of a chest pain. Allergies: Allergies Allergen Reactions Penicillins Hives Codeine Unknown Doxycycline Rash Phenobarbital Weakness "relaxes me too much" Piperacillin-Tazobactam Hives and Rash Breaks out Sulfamethoxazole-Trimethoprim Nausea and Vomiting Terazosin Other (See Comments) Chest heaviness, chest pain Valium [Diazepam] Other (See Comments) "stops breathing, no pulse" Unresponsiveness "stops breathing, no pulse" "stops breathing, no pulse" Unresponsiveness PMHx: Past Medical History: Diagnosis Date Anxiety Arthritis CAD S/P percutaneous coronary angioplasty CHF (congestive heart failure) COPD (chronic obstructive pulmonary disease) Depression Epilepsy 07/05/2018 GERD (gastroesophageal reflux disease) Hyperlipidemia LDL goal < 70 Hypertension Peripheral vascular disease PSHx: Past Surgical History: Procedure Laterality Date HX APPENDECTOMY HX CHOLECYSTECTOMY HX CORONARY ARTERY BYPASS GRAFT HX HAMMER TOE REPAIR HX HERNIA INCISIONAL REPAIR HX HERNIA INGUINAL REPAIR HX HIP FRACTURE TX Right 07/05/2018 RIGHT TROCHANTERIC FIXATION NAILING performed by Zachary Verduzco DO at [facility] OR [facility] [place] CYSTOURETHROSCOPY N/A 09/04/2017 CYSTOSCOPY WITH CLOT EVACUATION BLADDER performed by Walter Tinsley MD at [facility] OR [place] UROLOGY SURGERY PROCEDURE UNLISTED N/A 09/04/2017 BLADDER BIOPSY performed by Walter Tinsley MD at [facility] MAIN OR [place] UROLOGY SURGERY PROCEDURE UNLISTED Bilateral 09/04/2017 PYELOGRAM RETROGRADE BILATERAL performed by Walter Tinsley MD at [facility] N OR Home Medications: (Not in a hospital admission) Social Hx: Social History Substance Use Topics Smoking status: Current Every Day Smoker Packs/day: 2.00 Years: 4.00 Smokeless tobacco: Never Used Comment: stopped for 10 to 15 years and restarted Alcohol use No Family Hx: Family History Problem Relation Age of Onset Heart Failure Mother Hypertension Mother Hypertension Father Stroke Father Review of Systems Constitutional- no fever, sweats, night sweats, change in fatigue level EYE- no blurred vision, double vision ENT-, no difficulty swallowing, no symptoms of oral candidiasis Lungs- no complaint of respiratory distress, no wheezing CV- chest pain, no palpitation GI- no nausea, vomiting, diarrhea, no abdominal pain - no difficulty voiding, no flank pain MS- no significant edema 10 system review is otherwise negative except as discussed above. Physical: Vitals Patient Vitals for the past 8 hrs: BP Temp Temp src Pulse Resp SpO2 Height Weight 01/29/19 2300 126/60 - - (!) 59 20 98 % - - 01/29/19 2230 122/60 - - 61 18 97 % - - 01/29/19 2200 125/61 - - 65 21 98 % - - 01/29/19 2130 117/57 - - 68 19 97 % - - 01/29/19 2100 (!) 159/67 - - 66 16 98 % - - 01/29/192029 135/63 - - 60 17 99 % - - 01/29/191999 137/69 - - (!) 58 16 99 % - - 01/29/19 1930 129/63 - - (!) 59 17 99 % - - 01/29/19 1900 (!) 147/66 - - 60 16 100 % - - 01/29/19 1845 137/68 97.6 F (36.4 C) Oral - 18 100 % 5' 5" (1.651 m) 77.1 kg (170 lb) Physical Exam General appearance - alert, well appearing, and in no distress Mental status - alert, oriented to person, place, and time, normal mood. Eyes - pupils equal and reactive, extraocular eye movements intact, sclera anict ziola Neck - supple, no significant adenopathy. Chest - clear to auscultation, no wheezes, rales or rhonchi, symmetric air entry Heart - normal rate, regular rhythm, normal S1, S2, no murmur, rubs, clicks or gallops Abdomen - soft, nontender, nondistended. Extremities - peripheral pulses normal, no pedal edema, no clubbing or cyanosis Skin - normal coloration and turgor, no rashes, no suspicious skin lesions noted Data Review: Results for orders placed or performed during the hospital encounter of 01/29/19 (from the past 24 hour(s)) TROPONIN 2 HR, 5TH GEN Result Value Ref Range TROPONIN T, 2 HR 5TH GEN 38 (H) <=15 ng/L EKG: SINUS RHYTHM WITH 1ST DEGREE AV BLOCK. LEFT AXIS DEVIATION. LOW VOLTAGE QRS . XRAY: Xr Chest Pa Or Ap 1 Vw Result Date: 01/29/2019 Exam: XR CHEST PA OR AP 1 VW Date/Time of Exam: 01/29/2019 7:45 PM Reason for Jose dy: Chest Pain CLINICAL INDICATION: See Reason for Exam COMPARISON: Chest x-ray 2017 FINDINGS: The heart size is within normal limits Negative for consolidative infiltrate Negative for significant pulmonary vascular congestion Negative for significant pleural effusion Negative for pneumothorax Mediastinal, hilar contours within normal limits IMPRESSION: Negative for acute infiltrate Past records available through [facility] Case Reviewed with ER Provider, Dr. Brown Assessment: Principal Problem: Chest pain Active Problems: Coronary artery disease involving alutiiq coronary artery of alutiiq heart wi th angina pectoris COPD (chronic obstructive pulmonary disease) Type 2 diabetes mellitus Elevated troponin Epilepsy Plan: 1. Patient admitted with a primary diagnosis of chest pain. 2. Mild elevated cardiac enzymes, serial cardiac enzymes to follow. 3. Cardiac telemetry 4. Management 5. Stress test in a.m. 6. N.p.o. after midnight 7. Resume home medications 8. Sliding scale insulin 9. DVT prophylaxis The patient was seen by me on 01/29/19 at about 2300. Ernie Freedman MD, 01/29/2019 11:21 PM Claus Contreras MD [address] [place] [address] / [facility] [id number] documented in this encounter Procedure Notes * Walter Oconnor MD - 01/31/2019 10:07 AM CDT Indication for possible coronary stent is:acute coronary syndrome (e.g. acute my ocardial infarction, unstable angina), a history of significant obstructive athe rosclerotic disease, restenosis of a coronary artery previously treated with int racoronary stent or other revascularization procedure and chronic angina refract ory to optimal medical management. The objective evidence of ischemia is docume nted bystress testing with SPECT MPI. * Wlater Oconnor MD - 01/31/2019 10:06 AM CDT Brief Post-Procedure Note Patient: Oliverio Tinsley [id number] Pre-operative Diagnosis: CAD, [place] Post-operative Diagnosis: Same Procedure: LHC, cors, grafts, CONSTANTINE, PTCA/Stent x 2 LCx/OM, Angioseal Anesthesia: MAC / local Surgeons/Assistants: Walter Oconnor MD Findings: See report Specimens Removed: None Estimated Blood Loss: less than 100 Total Supervised Conscious Sedation Time: 60 min Complications: none Walter Oconnor MD 01/31/2019 10:06 AM documented in this encounter Consult Notes * Nuris Cheatham RN - 01/31/2019 3:30 PM CDT Associated Order(s): IP CONSULT TO CARDIAC REHAB Cardiac rehab consult and education session held with Mr Tinsley. Heart disease bhatti klet reviewed with and was given to Mr Tinsley for educational reference. We identi fied risk factors and discussed modifications. Mr Tinsley reports a history of CABG and now claims he has had 20 stents placed. He said he is compliant with his ca dications. He declined my offer of outpatient cardiac rehab at either the [place] or [place] locations. He said he would not have transportation to go that far from his home in [facility]. I encouraged him to be active and talked about exerc ising at home. He denied questions or needs at this time. Thank you for the refe rral. * Walter Oconnor MD - 01/30/2019 2:46 PM CDT CARDIOLOGY CONSULT NOTE Patient: Oliverio Tinsley 1950 [id number] Requesting Physician: Dr. Rios Primary Care Provider: Claus Couch MD Reason for Consultation: CAD, CP, abnormal stress test History: Oliverio Tinsley is a 68 y.o. male well known to me from prior evaluati ons. He has a long history of CAD, PVD, HTN, DL. He has not had an invasive eval uation in several years. He had a low risk stress test 01/23 in [facility]. Yester day he was sent here from the ER in [facility] with recurrent CP at rest. Troponin was minimally elevated but flat. Stress test today is abnormal with significant inferior and distal anterior ischemia. Past Medical History: Diagnosis Date Anxiety Arthritis CAD S/P percutaneous coronary angioplasty CHF (congestive heart failure) COPD (chronic obstructive pulmonary disease) Depression Epilepsy 07/05/2018 GERD (gastroesophageal reflux disease) Hyperlipidemia LDL goal < 70 Hypertension Peripheral vascular disease I've reviewed the home and current hospital medications. Prescriptions Prior to Admission Medication Sig Dispense Refill Last Dose oxyCODONE-acetaminophen (PERCOCET) 10-325 mg Tablet Take 1 Tablet by mouth e very 6 hours as needed for Pain, Severe. Max Daily Amount: 4 Tablets 40 Tablet 0 01/29/2019 at Unknown time ramipril (ALTACE) 5 mg capsule Take 1 Capsule (5 mg) by mouth daily with regla ch. 30 Capsule 0 01/29/2019 at Unknown time OLANZapine (ZYPREXA) 2.5 mg tablet Take 2.5 mg by mouth daily at bedtime. 01/29/2019 at Unknown time traZODone (DESYREL) 50 mg tablet Take 50 mg by mouth daily at bedtime. 01/07 at Unknown time nitroglycerin (NITROSTAT) 0.4 mg Tablet, Sublingual Place 0.4 mg under tongu e every 5 minutes as needed for Chest Pain. Past Month at Unknown time fluticasone (FLOVENT HFA) 110 mcg/actuation Inhalation Aero Take 1 Puff by i nhalation 2 times daily. 12 Gram 1 01/29/2019 at Unknown time albuterol (PROAIR HFA) 90 mcg/Actuation Inhalation HFAA inhaler Take 2 Puffs by inhalation every 4 hours as needed for Shortness of Breath or Wheezing. 6.7 Gram 1 01/29/2019 at Unknown time bethanechol (URECHOLINE) 25 mg Oral tablet Take 25 mg by mouth 4 times daily . 01/29/2019 at Unknown time clopidogrel (PLAVIX) 75 mg Oral Tab Take 75 mg by mouth daily. 01/29/2019 at Unknown time tamsulosin (FLOMAX) 0.4 mg Oral capsule Take 0.4 mg by mouth daily with supp er. 01/29/2019 at Unknown time FLUoxetine (PROZAC) 20 mg Oral tablet Take 40 mg by mouth daily. 01/30/20 19 at Unknown time magnesium oxide 250 mg Oral Tab Take 250 mg by mouth 3 times daily with meal s. 01/29/2019 at Unknown time esomeprazole (NEXIUM) 20 mg Oral CpDR Take 20 mg by mouth daily before break fast. 01/29/2019 at Unknown time multivitamin (DAILY-DAVID) Oral tablet Take 1 Tab by mouth daily after lunch. 01/29/2019 at Unknown time fenofibrate nanocrystallized (TRICOR) 145 mg Oral tablet Take 145 mg by mout h daily. 01/29/2019 at Unknown time ezetimibe (ZETIA) 10 mg Oral tablet Take 10 mg by mouth daily at bedtime. 01/29/2019 at Unknown time metoprolol succinate ER 24 hour (TOPROL-XL) 25 mg Oral tablet Take 12.5 mg b y mouth daily. 01/29/2019 at Unknown time simvastatin (ZOCOR) 40 mg Oral tablet Take 40 mg by mouth daily at bedtime. 01/29/2019 at Unknown time belladonna alkaloids-opium (B&O 15A) 16.2-30 mg Suppository Insert 1 Suppository by rectum every 6 hours as needed (bladder spasms). Max Daily Amount: 4 Suppositories 10 Suppository 0 Unknown at Unknown time LORazepam (ATIVAN) 1 mg tablet Take 1 mg by mouth every 12 hours. 8 at Unknown time prochlorperazine maleate (COMPAZINE) 10 mg tablet Take 10 mg by mouth every 6 hours as needed for Nausea/Emesis. 07/04/2018 at Unknown time pioglitazone (ACTOS) 30 mg Oral tablet Take 30 mg by mouth daily with breakf ast. 07/04/2018 at Unknown time loratadine (CLARITIN) 10 mg Oral tablet Take 10 mg by mouth daily. 2017 at Unknown time phenytoin (DILANTIN) 200 mg Oral Cap Take 200 mg by mouth 2 times daily. 07/04/2018 at Unknown time Allergies Allergen Reactions Penicillins Hives Codeine Unknown Doxycycline Rash Phenobarbital Weakness "relaxes me too much" Piperacillin-Tazobactam Hives and Rash Breaks out Sulfamethoxazole-Trimethoprim Nausea and Vomiting Terazosin Other (See Comments) Chest heaviness, chest pain Valium [Diazepam] Other (See Comments) "stops breathing, no pulse" Unresponsiveness "stops breathing, no pulse" "stops breathing, no pulse" Unresponsiveness Family History Problem Relation Age of Onset Heart Failure Mother Hypertension Mother Hypertension Father Stroke Father Social History Social History Marital status: Spouse name: N/A Number of children: N/A Years of education: N/A Occupational History Not on file. Social History Main Topics Smoking status: Current Every Day Smoker Packs/day: 2.00 Years: 4.00 Smokeless tobacco: Never Used Comment: stopped for 10 to 15 years and restarted Alcohol use No Drug use: No Sexual activity: No Other Topics Concern Service No Blood Transfusions Yes Caffeine Concern No Occupational Exposure No Hobby Hazards No Sleep Concern No Stress Concern Yes Weight Concern Yes Special Diet Yes Back Care No Exercise No Bike Helmet No Seat Belt Yes Self-Exams No Social History Narrative Lives alone with his dog. 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 Does not drive REVIEW OF SYSTEMS: Review of Systems - History obtained from chart review and the patient General ROS: negative for weight changes, fever positive for - fatigue Psychological ROS: positive for - depression Allergy and Immunology ROS: negative for itchy eyes, nasal congestion, sneezing, lymphadenopathy Hematological and Lymphatic ROS: negative for swollen glands or abnormal bleedin g Endocrine ROS: negative for polyuria/polydipsia or new changes in weight Respiratory ROS: positive for - cough, dyspnea on exertion and shortness of jess th negative for - hemoptysis or sputum changes Cardiovascular ROS: positive for - chest pain, dyspnea on exertion and shortness of breath negative for - palpitations or syncope Gastrointestinal ROS: negative for reflux, abdominal pain, change in bowel habit s, or black or bloody stools Genito-Urinary ROS: negative for dysuria, trouble voiding, or hematuria Musculoskeletal ROS: negative for back pain, neck pain or joint pain or swelling Neurological ROS: negative for TIA or stroke symptoms Other systems negative PHYSICAL EXAM: BP (!) 143/64 | Pulse 95 | Temp 98 F (36.7 C) (Oral) | Resp 18 | Ht 5' 5 " (1.651 m) | Wt 79.1 kg (174 lb 6.4 oz) | SpO2 99% | BMI 29.02 kg/m General appearance: alert, in no distress, appears older than stated age Head: Normocephalic, without obvious abnormality Ears: normal external ear canals AU Throat: Lips, mucosa (moist), and tongue normal. Teeth and gums normal Neck: no carotid bruit and no JVD Lungs: diminished breath sounds diffuse, normal respiratory effort Heart: normal rate and regular rhythm, S1 and S2 normal, distant tones Abdomen: Soft, non-tender. Bowel sounds normal. No masses, no organomegaly. Extremities: extremities normal, atraumatic, no cyanosis or edema, no edema, red ness or tenderness in the calves or thighs, normal strength, normal tone Pulses: 2+ and symmetric Skin: Skin color, texture, turgor normal. No rashes or lesions Neurologic: Grossly normal LAB: I have reviewed the available labs. Results for orders placed or performed during the hospital encounter of 01/29/19 (from the past 24 hour(s)) TROPONIN 2 HR, 5TH GEN Result Value Ref Range TROPONIN T, 2 HR 5TH GEN 38 (H) <=15 ng/L HEMOGLOBIN A1C Result Value Ref Range HEMOGLOBIN A1C 6.1 (H) 4.8 - 5.9 % EST. AVG GLUCOSE, A1C 128 mg/dL TSH Result Value Ref Range TSH 1.06 0.27 - 4.20 uIU/mL CBC WITH DIFFERENTIAL Result Value Ref Range WBC 6.7 4.0 - 11.0 K/uL RBC 4.24 (L) 4.70 - 6.00 M/uL HEMOGLOBIN 11.3 (L) 13.5 - 18.0 g/dL HEMATOCRIT 36.5 (L) 42.0 - 52.0 % MCV 86.1 78.0 - 100.0 fL MCH 26.7 (L) 27.0 - 34.0 pg MCHC 31.0 31.0 - 37.0 g/dL RDW 15.7 (H) 12.0 - 15.0 % RDW-STDEV 48.9 (H) 37.1 - 48.7 fL PLATELETS 277 150 - 450 K/uL MPV 8.2 (L) 9.3 - 12.4 fL NEUTROPHILS 61 31 - 76 % LYMPHOCYTES 27 24 - 44 % MONOCYTES 10 2 - 11 % EOSINOPHILS 2 0 - 6 % BASOPHILS 0 0 - 2 % IMMATURE GRANULOCYTES 1 0 - 2 % NEUTROPHIL ABSOLUTE 4.05 1.80 - 7.70 K/uL LYMPHOCYTE ABSOLUTE 1.81 1.00 - 4.80 K/uL MONOCYTE ABSOLUTE 0.64 0.10 - 1.30 K/uL EOSINOPHIL ABSOLUTE 0.13 0.00 - 0.70 K/uL BASOPHILS ABSOLUTE 0.01 0.00 - 0.20 K/uL IMMATURE GRANULOCYTES ABSOLUTE 0.04 0.00 - 0.10 K/uL PROTIME-INR Result Value Ref Range PROTIME 15.3 (H) 11.8 - 14.6 Seconds INR 1.2 0.9 - 1.2 COMPREHENSIVE METABOLIC PANEL Result Value Ref Range SODIUM 135 (L) 136 - 145 mmol/L POTASSIUM 4.4 3.5 - 5.1 mmol/L CHLORIDE 100 98 - 107 mmol/L CO2 22 22 - 29 mmol/L CALCIUM 9.0 8.8 - 10.2 mg/dL BUN 19 8 - 23 mg/dL CREATININE 0.90 0.67 - 1.17 mg/dL GLUCOSE 135 (H) 74 - 99 mg/dL TOTAL PROTEIN 6.8 6.4 - 8.3 g/dL ALBUMIN 3.8 (L) 4.0 - 4.9 g/dL BILIRUBIN TOTAL 0.3 <=1.2 mg/dL ALKALINE PHOSPHATASE 138 (H) 40 - 129 U/L AST 219 (H) 0 - 40 U/L ALT 51 (H) 0 - 41 U/L GFR >60 >=60 mL/min/1.73 sq meter GFR, >60 >=60 mL/min/1.73 sq meter ANION GAP 13 4 - 13 mmol/L TROPONIN 6 HR, 5TH GEN Result Value Ref Range TROPONIN T, 6 HR 5TH GEN 37 (H) <=15 ng/L POC GLUCOSE Result Value Ref Range POC GLUCOSE 124 (H) 74 - 99 mg/dL OPTICAL GLASS ETCHER NAME dora cardoso LIPID PANEL Result Value Ref Range CHOLESTEROL 121 <200 mg/dL TRIGLYCERIDE 163 (H) <150 mg/dL HDL 42 40 - 59 mg/dL LDL CALCULATED 46 <100 mg/dL NON-HDL CHOLESTEROL 79 <130 mg/dL POC GLUCOSE Result Value Ref Range POC GLUCOSE 133 (H) 74 - 99 mg/dL OPTICAL GLASS ETCHER NAME Mary Braga MYOCARD PERF IMAG SPECT MULT Result Value Ref Range EJECTION FRACTION 57 50 - 65 % POC GLUCOSE Result Value Ref Range POC GLUCOSE 143 (H) 74 - 99 mg/dL OPTICAL GLASS ETCHER NAME cecil feng EKG: SR, 1st degree AV block, LAD, NST changes CHEST X-RAY: Results for orders placed or performed during the hospital encounter of 01/29/19 XR CHEST PA OR AP 1 VW Narrative Exam: XR CHEST PA OR AP 1 VW Date/Time of Exam: 01/29/2019 7:45 PM Reason for Study: Chest Pain CLINICAL INDICATION: See Reason for Exam COMPARISON: Chest x-ray 2017 FINDINGS: The heart size is within normal limits Negative for consolidative infiltrate Negative for significant pulmonary vascular congestion Negative for significant pleural effusion Negative for pneumothorax Mediastinal, hilar contours within normal limits Impression IMPRESSION: Negative for acute infiltrate Results for orders placed or performed during the hospital encounter of 09/02/12 XR CHEST PA AND LATERAL Narrative PA and lateral chest x-ray with two views after chest pain shortness of breath 61-year-old male. Findings: CABG with cardiac enlargement with coronary artery stent suggesting LAD stent graft and circumflex with chronic changes lungs without pneumonia pneumothorax or failure. No segmental atelectasis or pleural effusion. Cholecystectomy clips. No comparison studies are available at this time. No displaced rib fractures. Impression Impression: No acute thoracic disease. Coronary artery stents. CABG. Contact number for further clinical information, imaging correlation/consultation, comments, follow-up information or questions, ([facility] , [place], [place]): OFFICE: [phone] / personal office voice mailbox. OFFICE reading station: [phone]. Additional / secondary back up #s: [address] [facility] reading room, and [phone], or [phone]. [facility] page band ripsaw operator for paging system use: [phone]. IMPRESSIONS: Principal Problem: Chest pain Active Problems: COPD (chronic obstructive pulmonary disease) Abnormal cardiovascular stress test Coronary artery disease involving alutiiq coronary artery of alutiiq heart with angina pectoris Type 2 diabetes mellitus Elevated troponin Epilepsy RECOMMENDATIONS: The stress test is clearly abnormal and he has known CAD and sxs c/w angina desp ite meds. I have rec cardiac cath and intervention if appropriate. The procedure, risks and benefits were reviewed with him. He is familiar due to his history and agrees to proceed. NPO after MN Walter Oconnor MD 01/30/2019 2:46 PM documented in this encounter ED Notes * Mario Alberto Mireles - 01/30/2019 12:50 AM CDT Pt transported to room 3009 via ed stretcher with no injury noted. 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 Pt transported on two liters of O2 per N/C. Pt transported with famil y member and family had personal belongings. Pt arrived to room with nursing sta ff awaiting pt arrival at bedside. Pt transferred to hospital bed with nursing s taff. Pt settled into hospital bed with call light placed in reach. Nursing staf f at bedside currently taking vitals. * Maura Butler RN - 01/29/2019 11:55 PM CDT Tele box #[id number] called to telemetry * Maura Bulter RN - 01/29/2019 11:28 PM CDT Report called to PRIYA Olea. * Maura Butler RN - 01/29/2019 6:42 PM CDT Pt arrived via EMS from [facility] with chief complaint of chest pain onset this morning. Pt has a heart history with 17 stents. Pt c/o chest pain on set 1130 this morning with pain radiating to left arm rated 9/10. Pt was given A SA and 4000 units of Heparin at [facility]. Patent 20G IV to Right arm . Pt states he only wears oxygen at home at night. Pt was given 50mcg of Fentany l before leaving [facility] and 50 mcg of Fentanyl in route to [facility]. Pt currently rates pain 8/10. Denies shortness of breath. EMS Vital signs 113/60, heart rate 60, oxygen saturation 99% on 2L nasal cannula . Pt to room, gown on, monitor applied. Call light within reach. Will continue to monitor. EKG done. * Dora Crum RN - 01/29/2019 6:38 PM CDT Bed: ED 17 Expected date: Expected time: Means of arrival: Comments: Chest Pain Luigi Ruggiero * Stanford Brown MD - 01/29/2019 6:38 PM CDT HISTORY OF PRESENT ILLNESS Oliverio Tinsley, a 68 y.o. male presents to the ED with a Chief Complaint of Ch est Pain Subjective H&P PERFORMED AT: 1926 68 Y.O. MALE PRESENTS TO THE ED FROM [place] C/OSHARP, SUBSTERNAL CHEST PAIN, THAT RADIATES DOWN HIS LEFT ARM, WHICH BEGAN SUDDENLY 1130. THE PT WAS GIVEN A, 50 MCG FENTANYL, AND 4000 UNITS OF HEPARIN. PT REPORTS THAT HE HAD NO MODIFIC ATION WITH 3 NITROGLYCERIN. THE PT DENIES SOB, LEG SWELLING, PALPITATIONS, CHIL LS, CONGESTION, FEVER, AND ANY OTHER ACUTE ASSOCIATED MEDICAL SYMPTOMS AT THIS T PRAVEEN. THE PT DENIES RECEIVING FLUIDS AT [place]. PT PLACED ON 2 LITERS NC. ALLERGIES: PENICILLINS, CODEINE, DOXYXYCLINE, PHENOBARBITAL, PIPERACILLINTAZOBAC LOPEZ, VALIUM, SULFAMETHOXAZOLETRIMETHOPRIM, AND TERAZOSIN. PMHx: CAD, COPD, HLD, CHF, GERD, ANXIETY, AND EPILEPSY. PSHx: APPY, CHOLECYSTECTOMY, HEART STENT x17, CABG x4, HERNIORRHAPHY, AND UROLOG Y SURGERY. SHx: CURRENT SMOKER, 2 PPD. NO ALCOHOL USE. History provided by: The patient and medical records rollway worker used: No Arrived by: Private vehicle Arrived from: An outside facility REVIEW OF SYSTEMS Review of Systems Constitutional: Negative. Negative for chills, fatigue and fever. HENT: Negative. Negative for congestion, rhinorrhea, sinus pain, sinus pressure and sore throat. Eyes: Negative. Negative for visual disturbance. Respiratory: Negative. Negative for cough and shortness of breath. Cardiovascular: Positive for chest pain. Gastrointestinal: Negative. Negative for abdominal pain, diarrhea, nausea and v omiting. Endocrine: Negative. Genitourinary: Negative. Negative for dysuria. Musculoskeletal: Negative. Negative for myalgias. Skin: Negative. Negative for rash. Neurological: Negative. Negative for dizziness, light-headedness and headaches. Hematological: Negative. Psychiatric/Behavioral: Negative. PAST MEDICAL HISTORY REVIEWED MEDICAL: Patient has a past medical history of Anxiety; Arthritis; CAD S/P percutaneous coronary angioplasty; CHF (congestive heart failure); COPD (chronic obstructive pulmonary disease); Depression; Epilepsy (07/05/2018); GERD (gastroesophageal ref lux disease); Hyperlipidemia LDL goal < 70; Hypertension; and Peripheral vascular disease. SURGICAL: Patient has a past surgical history that includes hx appendectomy; hx cholecyst ectomy; hx coronary artery bypass graft; hx ptca; hx hernia incisional repair; h x hernia inguinal repair; hx hammer toe repair; pr urology surgery procedure unl isted (N/A, 09/04/2017); pr cystourethroscopy (N/A, 09/04/2017); pr urology surg len procedure unlisted (Bilateral, 09/04/2017); and hx hip fracture tx (Right, ). FAMILY: Patient's family history includes Heart Failure in his mother; Hypertension in h is father and mother; Stroke in his father. SOCIAL: reports that he has been smoking. He has a 8.00 pack-year smoking history. He has never used smokeless tobacco. He reports that he does not drink alcohol, use drugs, or engage in sexual activity. No history on file. Social History Other Topics Concern Service No Blood Transfusions Yes Caffeine Concern No Occupational Exposure No Hobby Hazards No Sleep Concern No Stress Concern Yes Weight Concern Yes Special Diet Yes Back Care No Exercise No Bike Helmet No Seat Belt Yes Self-Exams No PROBLEM LIST: Patient has Chest pain, chronic; Coronary artery disease involving alutiiq shah ry artery of alutiiq heart with angina pectoris; Peripheral arterial disease; Leg edema, left; Dyspnea, chronic; COPD (chronic obstructive pulmonary disease); Hy pertension; Hyperlipidemia with target LDL less than 70; Depression; Acute blood loss anemia; Hematuria; Greater trochanter fracture; Gross hematuria; Hemorrhag ic cystitis; Bursitis of right elbow; Tobacco dependence; Type 2 diabetes [facility]; Closed fracture of head of right femur; Elevated troponin; Epilepsy; Chest p ain; Abnormal cardiovascular stress test; and Acute cystitis without hematuria ( POA) on his problem list. ALLERGIES Penicillins; Codeine; Doxycycline; Phenobarbital; Piperacillin-tazobactam; Sulfa methoxazole-trimethoprim; Terazosin; and Valium [diazepam] HOME MEDICATIONS Discharge Medication List as of 02/01/2019 1:54 PM START taking these medications Details aspirin (ECOTRIN EC) 81 mg Tablet, Delayed Release (E.C.) Take 1 Tablet (81 mg) by mouth daily., Disp-30 Tablet, R-0 cefdinir (OMNICEF) 300 mg capsule Take 1 Capsule (300 mg) by mouth every 12 hour s for 7 days., Disp-14 Capsule, R-0 CONTINUE these medications which have NOT CHANGED Details oxyCODONE-acetaminophen (PERCOCET) 10-325 mg Tablet Take 1 Tablet by mouth every 6 hours as needed for Pain, Severe. Max Daily Amount: 4 Tablets, Disp-40 Tablet , R-0 belladonna alkaloids-opium (B&O 15A) 16.2-30 mg Suppository Insert 1 Suppository by rectum every 6 hours as needed (bladder spasms). Max Daily Amount: 4 Suppositories, Disp-10 Suppository, R-0 ramipril (ALTACE) 5 mg capsule Take 1 Capsule (5 mg) by mouth daily with lunch., Disp-30 Capsule, R-0 OLANZapine (ZYPREXA) 2.5 mg tablet Take 2.5 mg by mouth daily at bedtime. LORazepam (ATIVAN) 1 mg tablet Take 1 mg by mouth every 12 hours. traZODone (DESYREL) 50 mg tablet Take 50 mg by mouth daily at bedtime. nitroglycerin (NITROSTAT) 0.4 mg Tablet, Sublingual Place 0.4 mg under tongue ev len 5 minutes as needed for Chest Pain. prochlorperazine maleate (COMPAZINE) 10 mg tablet Take 10 mg by mouth every 6 ho urs as needed for Nausea/Emesis. fluticasone (FLOVENT HFA) 110 mcg/actuation Inhalation Aero Take 1 Puff by inhal ation 2 times daily., Disp-12 Gram, R-1 albuterol (PROAIR HFA) 90 mcg/Actuation Inhalation HFAA inhaler Take 2 Puffs by inhalation every 4 hours as needed for Shortness of Breath or Wheezing., Disp-6. 7 Gram, R-1 pioglitazone (ACTOS) 30 mg Oral tablet Take 30 mg by mouth daily with breakfast. bethanechol (URECHOLINE) 25 mg Oral tablet Take 25 mg by mouth 4 times daily. clopidogrel (PLAVIX) 75 mg Oral Tab Take 75 mg by mouth daily. tamsulosin (FLOMAX) 0.4 mg Oral capsule Take 0.4 mg by mouth daily with supper. FLUoxetine (PROZAC) 20 mg Oral tablet Take 40 mg by mouth daily. loratadine (CLARITIN) 10 mg Oral tablet Take 10 mg by mouth daily. magnesium oxide 250 mg Oral Tab Take 250 mg by mouth 3 times daily with meals. phenytoin (DILANTIN) 200 mg Oral Cap Take 200 mg by mouth 2 times daily. esomeprazole (NEXIUM) 20 mg Oral CpDR Take 20 mg by mouth daily before breakfast . multivitamin (DAILY-DAVID) Oral tablet Take 1 Tab by mouth daily after lunch. fenofibrate nanocrystallized (TRICOR) 145 mg Oral tablet Take 145 mg by mouth da maribel. ezetimibe (ZETIA) 10 mg Oral tablet Take 10 mg by mouth daily at bedtime. metoprolol succinate ER 24 hour (TOPROL-XL) 25 mg Oral tablet Take 12.5 mg by mo uth daily. simvastatin (ZOCOR) 40 mg Oral tablet Take 40 mg by mouth daily at bedtime. Objective PHYSICAL EXAM INITIAL VS BP: 137/68 (01/29/191844), Heart Rate: 56 bpm (01/29/191844), Resp: 18 (1844), Pulse: 60 (01/29/19 1900), Temp: 97.6 F (36.4 C) (01/29/191844), Temp src: Oral (01/29/191844), SpO2: 100 % (01/29/191844), Height: 5' 5" (165. 1 cm) (01/29/191844), Weight: 77.1 kg (170 lb) (01/29/191844), BMI (Calculated ): 28.29 (01/29/191844) No LMP for male patient. Physical Exam Constitutional: He is oriented to person, place, and time. He appears well-devel oped and well-nourished. No distress. PT DOES NOT APPEAR TO BE IN ANY ACUTE DISTRESS. PT HAS NO SICKLY OR SEPTIC APPEA CONRAD. HENT: Head: Normocephalic and atraumatic. Nose: Nose normal. Eyes: Pupils are equal, round, and reactive to light. Conjunctivae and EOM are n ormal. Neck: Normal range of motion. Neck supple. No JVD present. Cardiovascular: Normal rate, regular rhythm, normal heart sounds and intact dist al pulses. Pulmonary/Chest: Effort normal and breath sounds normal. No respiratory distress . He has no wheezes. He has no rales. He exhibits no tenderness. RESPIRATIONS ARE EVEN AND UNLABORED IN ALL LUNG AJ. Abdominal: Soft. Bowel sounds are normal. He exhibits no distension. There is no tenderness. There is no guarding. Musculoskeletal: Normal range of motion. He exhibits no tenderness or deformity. Neurological: He is alert and oriented to person, place, and time. No cranial ne rve deficit or sensory deficit. He exhibits normal muscle tone. Coordination nor mal. Skin: Skin is warm and dry. Capillary refill takes less than 2 seconds. No rash noted. He is not diaphoretic. SKIN IS PINK, WARM, AND DRY. Psychiatric: He has a normal mood and affect. His behavior is normal. Nursing note and vitals reviewed. DIAGNOSTICS LAB: TROPONIN 2 HR, 5TH GEN - Abnormal Result Value TROPONIN T, 2 HR 5TH GEN 38 (*) POC GLUCOSE POC GLUCOSE POC GLUCOSE POC GLUCOSE RADIOLOGY: XR HIP 2 OR 3 VIEWS LT XR CHEST PA OR AP 1 VW XR CHEST PA OR AP 1 VW Radiologist Impression IMPRESSION: Negative for acute infiltrate EKG: FIRST ED EKG Signed and interpreted by the Emergency Physician. Time Performed: 1838 Time Interpreted: 1839 Rate: 60 BPM MI Interval: 230 ms QRS Duration: 74 ms QT/QTc: 414/414 ms Interpretation: SINUS RHYTHM WITH 1ST DEGREE AV BLOCK. LEFT AXIS DEVIATION. LOW VOLTAGE QRS. PROCEDURES Procedures MEDICAL DECISION MAKING AND PLAN OF CARE [facility] 1933: DISCUSSED PLAN TO OBTAIN 2 HOUR TROPONIN AND ANSWERED ALL QUESTIONS. DISCU SSED PLAN TO ADMIT THE PT OVERNIGHT FOR CARDIAC OBSERVATION THE PT HAD AN MASOOD VATED TROPONIN AND RISK FACTORS. THE PT VERBALIZES UNDERSTANDING AND AGREEMENT W ITH THE PLAN OF CARE. PT IS STABLE FOR ADMITTANCE. BP 147/66. HR 60 BPM. SPONTO2 : 100%. Medications Administered During the ED Stay from 01/29/2019 1838 to 01/30/2019 0 053 Date/Time Order Dose Route Action 01/29/2019 193 nitroglycerin (NITRO-BID) 2 % topical ointment 1 Inch 1 Inch T opical Applied 01/29/20192008 sodium chloride 0.9% bolus solution 500 mL 0 mL IV Stopped 01/29/20191938 sodium chloride 0.9% bolus solution 500 mL 500 mL IV New Bag 01/29/20192119 enoxaparin (LOVENOX) injection 80 mg 80 mg subCUT Given 01/29/20192042 phenytoin sodium (DILANTIN) extended release capsule 400 mg 40 0 mg Oral Given 01/29/20192329 LORazepam (ATIVAN) tablet 1 mg 1 mg Oral Not Given 01/29/20192314 phenytoin sodium (DILANTIN) extended release capsule 200 mg 20 0 mg Oral Not Given 01/29/20192314 simvastatin (ZOCOR) tablet 40 mg 40 mg Oral Not Given 01/29/20192314 OLANZapine (ZyPREXA) tablet 2.5 mg 2.5 mg Oral Not Given 01/29/20192314 fluticasone (FLOVENT HFA) 110 mcg/actuation inhaler 1 Puff 1 P uff Inhalation Not Given 01/29/20192314 ezetimibe (ZETIA) tablet 10 mg 10 mg Oral Not Given 01/29/20192314 traZODone (DESYREL) tablet 50 mg 50 mg Oral Not Given 01/29/20192314 insulin lispro (HumaLOG) variable dose injection subCUT [facility] eled Entry 2303: DISCUSSED PT'S CASE WITH DR. MORGAN LEONARD, HOSPITALIST. HE WILL ACCEPT E PT AT THIS TIME. Discharge Medication List as of 02/01/2019 1:54 PM START taking these medications Details aspirin (ECOTRIN EC) 81 mg Tablet, Delayed Release (E.C.) Take 1 Tablet (81 mg) by mouth daily., Disp-30 Tablet, R-0 cefdinir (OMNICEF) 300 mg capsule Take 1 Capsule (300 mg) by mouth every 12 hour s for 7 days., Disp-14 Capsule, R-0 CONTINUE these medications which have NOT CHANGED Details oxyCODONE-acetaminophen (PERCOCET) 10-325 mg Tablet Take 1 Tablet by mouth every 6 hours as needed for Pain, Severe. Max Daily Amount: 4 Tablets, Disp-40 Tablet , R-0 belladonna alkaloids-opium (B&O 15A) 16.2-30 mg Suppository Insert 1 Suppository by rectum every 6 hours as needed (bladder spasms). Max Daily Amount: 4 Suppositories, Disp-10 Suppository, R-0 ramipril (ALTACE) 5 mg capsule Take 1 Capsule (5 mg) by mouth daily with lunch., Disp-30 Capsule, R-0 OLANZapine (ZYPREXA) 2.5 mg tablet Take 2.5 mg by mouth daily at bedtime. LORazepam (ATIVAN) 1 mg tablet Take 1 mg by mouth every 12 hours. traZODone (DESYREL) 50 mg tablet Take 50 mg by mouth daily at bedtime. nitroglycerin (NITROSTAT) 0.4 mg Tablet, Sublingual Place 0.4 mg under tongue ev len 5 minutes as needed for Chest Pain. prochlorperazine maleate (COMPAZINE) 10 mg tablet Take 10 mg by mouth every 6 ho urs as needed for Nausea/Emesis. fluticasone (FLOVENT HFA) 110 mcg/actuation Inhalation Aero Take 1 Puff by inhal ation 2 times daily., Disp-12 Gram, R-1 albuterol (PROAIR HFA) 90 mcg/Actuation Inhalation HFAA inhaler Take 2 Puffs by inhalation every 4 hours as needed for Shortness of Breath or Wheezing., Disp-6. 7 Gram, R-1 pioglitazone (ACTOS) 30 mg Oral tablet Take 30 mg by mouth daily with breakfast. bethanechol (URECHOLINE) 25 mg Oral tablet Take 25 mg by mouth 4 times daily. clopidogrel (PLAVIX) 75 mg Oral Tab Take 75 mg by mouth daily. tamsulosin (FLOMAX) 0.4 mg Oral capsule Take 0.4 mg by mouth daily with supper. FLUoxetine (PROZAC) 20 mg Oral tablet Take 40 mg by mouth daily. loratadine (CLARITIN) 10 mg Oral tablet Take 10 mg by mouth daily. magnesium oxide 250 mg Oral Tab Take 250 mg by mouth 3 times daily with meals. phenytoin (DILANTIN) 200 mg Oral Cap Take 200 mg by mouth 2 times daily. esomeprazole (NEXIUM) 20 mg Oral CpDR Take 20 mg by mouth daily before breakfast . multivitamin (DAILY-DAVID) Oral tablet Take 1 Tab by mouth daily after lunch. fenofibrate nanocrystallized (TRICOR) 145 mg Oral tablet Take 145 mg by mouth da maribel. ezetimibe (ZETIA) 10 mg Oral tablet Take 10 mg by mouth daily at bedtime. metoprolol succinate ER 24 hour (TOPROL-XL) 25 mg Oral tablet Take 12.5 mg by mo uth daily. simvastatin (ZOCOR) 40 mg Oral tablet Take 40 mg by mouth daily at bedtime. LAST VS BP: 116/58 (02/01/19 1209), Heart Rate: 59 bpm (01/29/19 2300), Resp: 20 ( 1209), Pulse: 66 (02/01/19 1209), Temp: 97.7 F (36.5 C) (02/01/19 1209), Temp src: Oral (02/01/19 1209), SpO2: 99 % (02/01/19 1209) CLINICAL IMPRESSION Final diagnoses: [R07.9] Chest pain, unspecified type (Primary) [R74.8] Elevated troponin DISPOSITION, EDUCATION AND MEDICATION RECONCILIATION Medications reconciled. See after visit summary for patient education on discha rged patients. ED Disposition ED Disposition Condition User Date/Time Comment Admit Stable Stanford Brown MD Bryant Jan 29, 2019 11:03 PM ATTESTATION STATEMENTS By signing my name below, IEnma, attest that this documentation has been pr epared under the direction and in the presence of Stanford Brown MD. Electronically signed: Christiano Piper. ATTESTATIONS The scribe's documentation has been prepared under my direction and personally r eviewed by me in its entirety. I confirm that the note above accurately reflects all work, treatment, procedures, and medical decision making performed by me. A riri Brown MD documented in this encounter Miscellaneous Notes * Care Plan - Zachary Sumner RN - 02/01/2019 5:06 AM CDT Patient able to rest during the night. Patient had no complaints. IV is patent. VSS. Will continue to monitor the patient. * Care Plan - Dai Sarmiento RN - 01/31/2019 5:09 PM CDT Pt AO x 4 with VSS and afebrile. Pt had R groin HC today. Pressure dressing in place. No hematoma present. Family at bedside today. Pt free from falls/inju dianna this shift. Will continue to monitor. * Care Plan - Fransisca Jerez RN - 01/31/2019 5:05 AM CDT VSS, afebrile, no falls/injuries this shift. IVF infusing per eMar. Pt up to B SC this shift. Pt slept well throughout the noc. Pt NPO after MN for heart cat h later today, consent signed and in front of chart. Will continue to monitor. Call light in reach. * Care Plan - Cecil Feng RN - 01/30/2019 7:36 PM CDT Patient remains awake and alert this shift; cooperative with all therapy. Patien t to stress test today; Dr. Oconnor consult and expected cardiac cath tomorrow. Co nsent for cardiac cath signed. Fluids infusing at 30 mL/hour per eMAR. Patient r emains sinus rhythm at a controlled rate on tele. Patient remains on 2L NC. Valeri l signs stable; patient has no other c/o at this time. INTERDIS PW: CHEST PAIN Pathway Day 1 Discharge Planning: Patient/Delegate verbalizes the importance of risk fac tor modification for Heart Attack prevention, warning signs and symptoms of a He art Attack, activation of EMS, post-hospital discharge appointment with provider , and medication compliance. Not Met INTERDIS PW: HYPERGLYCEMIA, ADULT Pathway Day 1 Metabolic: Maintain glucose between 110-180 mg/dL when receiving subcutane ous insulin and between 110-160 mg/dL when receiving IV insulin. Not Met SERUM GLUCOSE GREATER THAN GOAL - 207 serum glucose Cardiovascular Achieve optimal cardiovascular function by discharge or maintain baseline fu nction Variance Discharge Planning Identify discharge needs upon admission and through discharge Variance Nutrition/Endocrine Achieve optimal nutrition and fluid status to meet metabolic needs throughou t hospitalization Variance Pain, Potential/Actual Verbalizes/displays acceptable comfort level or baseline comfort level Varia nce * Care Plan - Pamela Calero RN - 01/30/2019 5:12 PM CDT Problem: Discharge Planning Goal: Identify discharge needs upon admission and through discharge Initial Discharge Planning Assessment completed. Care Management visited with patient, and discussed Care Management role and dis charge planning. Prior to admission, patient's functional level was Assisted with In home Care . Prior to admission, patient resided at Home. Next of kin/contact verified as Hellen Veloz sister, contact number , Sister Ameena Rodriguez [phone] Couch. Patient's insurance verified as [employer] P[employer]/[facility] and [facility] lt Plan NILES Patient has prescription coverage: yes Preferred Pharmacy: [facility] Equipment in home of: Walker, wheelchair and shower chair. Discussed discharge goals and possible discharge needs. Transportation on discharge : The people at [facility] or possibly a sister Comments: Stated he has In Home services by ([facility]) out of [facility] they come daily for 9 hours cooking, house keeping and errands then a man comes from 2200 till 0400 for 7 days a week. Declined any need for HHC or Skilled Nadine sing. Patient has recent bedbug out break at home. His recliner and love seat we re destroyed. He was treated by family at home. Scabs noted on bilat arms and ch est. No live bed bugs seen. Care Management will continue to follow and assist as needed. Stacia Calero RN IP [employer]queezer Operator 1933 documented in this encounter Plan of Treatment Not on filedocumented as of this encounter Procedures Comments Procedure Name Priority Date/Time Associated Diag nosis TELEMETRY REPORT 02/05/2019 2:23 PM CDT TELEMETRY REPORT 02/02/2019 2:23 PM CDT XR HIP 2 OR 3 VIEWS LT Pending 02/01/2019 Discharge 12:38 PM CDT POC GLUCOSE Routine 02/01/2019 12:04 PM CDT POC GLUCOSE Routine 02/01/2019 8:41 AM CDT POC GLUCOSE Routine 02/01/2019 2:10 AM CDT HEMOGLOBIN AND HEMATOCRIT Routine 02/01/2019 12:22 AM CDT BASIC METABOLIC PANEL Routine 02/01/2019 12:22 AM CDT POC GLUCOSE Routine 01/31/2019 8:26 PM CDT POC GLUCOSE Routine 01/31/2019 5:47 PM CDT POC GLUCOSE Routine 01/31/2019 10:55 AM CDT MI ELECTROCARDIOGRAM, Routine 01/31/2019 COMPLETE 10:20 AM CDT CL LT HEART Routine 01/31/2019 CATHETERIZATION 9:56 AM CDT POC GLUCOSE Routine 01/31/2019 3:01 AM CDT POC GLUCOSE Routine 01/30/2019 9:20 PM CDT POC GLUCOSE Routine 01/30/2019 5:28 PM CDT URINALYSIS WITH REFLEX Stat 01/30/2019 CULTURE 3:10 PM CDT URINE CULTURE Routine 01/30/2019 3:10 PM CDT POC GLUCOSE Routine 01/30/2019 1:05 PM CDT NM MYOCARD PERF IMAG Stat 01/30/2019 SPECT MULT 12:22 PM CDT NM PHARMACOLOGICAL STRESS Stat 01/30/2019 TEST 10:29 AM CDT POC GLUCOSE Routine 01/30/2019 7:50 AM CDT LIPID PANEL Stat 01/30/2019 3:26 AM CDT POC GLUCOSE Routine 01/30/2019 1:33 AM CDT TROPONIN 6 HR, 5TH GEN Timed 01/30/2019 Study 1:10 AM CDT CBC WITH DIFFERENTIAL Stat 01/30/2019 1:10 AM CDT PROTIME-INR Stat 01/30/2019 1:10 AM CDT TSH Stat 01/30/2019 1:10 AM CDT HEMOGLOBIN A1C Stat 01/30/2019 1:10 AM CDT COMPREHENSIVE METABOLIC Stat 01/30/2019 PANEL 1:10 AM CDT XR CHEST PA OR AP 1 VW Stat 01/29/2019 7:45 PM CDT MI ELECTROCARDIOGRAM, Stat 01/29/2019 COMPLETE 7:30 PM CDT TROPONIN 2 HR, 5TH GEN Timed 01/29/2019 Study 7:25 PM CDT documented in this encounter Results * TELEMETRY REPORT (02/05/2019 2:23 PM CDT) Narrative Performed At This result has an attachment that is n ot available. * TELEMETRY REPORT (02/02/2019 2:23 PM CDT) Narrative Performed At This result has an attachment that is n ot available. * XR HIP 2 OR 3 VIEWS LT (02/01/2019 12:38 PM CDT) Specimen Impressions Performed At IMPRESSION: Postop changes both proximal femurs wi th longstem INTERFACE SYSTEM intramedullary nail with proximal dista l interlocking material left femur. Healing left intertrochanteric fracture . No acute osseous findings. Contact interpreting radiologist number for further physician/mid-level inquiry clinical in formation, imaging correlation/consultation, comments, fol low-up information or questions, ([place], [place]) : OFFICE: [phone] / personal offic e voice mailbox. OFFICE reading station: [phone]. Additional / secondary back up #s: [phone] (lead x-ray tech office). If you are a patient reading this on [facility] and have questions, please contact your medical provider. Narrative Performed At LEFT HIP X-RAY STUDY: INTERFACE SYSTEM XR HIP 2 OR 3 VIEWS LT HISTORY: 68 years Male with Chest pain, unspecified type; Elevated troponin; Coronary artery disease involving nativ e coronary artery of alutiiq heart with angina pectoris; Abnormal ca rdiovascular stress test FINDINGS: No acute fracture or dislocat ion. Intramedullary tanvir left femur with angl ed interlocking medullary lag screw. Distal interlocking cortical scr ew. Healing or healed left intertrochanteri c fracture. Penile prosthesis. Triple cannulated countersunk medullary lag screws right proximal femur. Soft tissue calcification right lower q uadrant. Surgical clip right thigh medially. Bowel gas obscures sacrum, limiting constantine ging of the osseous structures of the sacrum and limiting visualizatio n of possible fractures or additional abnormalities. No acute osseous or acute soft tissue f indings. Procedure Note Interface, [facility] Incoming Radiology Results - 02/01/2019 1:11 PM CDT LEFT HIP X-RAY STUDY: XR HIP 2 OR 3 VIEWS LT HISTORY: 68 years Male with Chest pain, unspecified type; Elevated troponin; Coronary artery disease involving alutiiq coronary artery of alutiiq heart with angina pectoris; Abnormal cardiovascular stress test FINDINGS: No acute fracture or dislocation. Intramedullary tanvir left femur with angled interlocking medullary lag screw. Distal interlocking cortical screw. Healing or healed left intertrochanteric fracture. Penile prosthesis. Triple cannulated countersunk medullary lag screws right proximal femur. Soft tissue calcification right lower quadrant. Surgical clip right thigh medially. Bowel gas obscures sacrum, limiting imaging of the osseous structures of the sacrum and limiting visualization of possible fractures or additional abnormalities. No acute osseous or acute soft tissue findings. IMPRESSION: Postop changes both proximal femurs with longstem intramedullary nail with proximal distal interlocking material left femur. Healing left intertrochanteric fracture. No acute osseous findings. Contact interpreting radiologist number for further physician/mid-level inquiry clinical information, imaging correlation/consultation, comments, follow-up information or questions, ([place], [place]): OFFICE: [phone] / personal office voice mailbox. OFFICE reading station: [phone]. Additional / secondary back up #s: [phone] (lead x-ray tech office). If you are a patient reading this on [facility] and have questions, please contact your medical provider. Performing Organization Address [facility] Number INTERFACE SYSTEM INTERFACE SYSTEM Refer to clinic/hospital department * POC GLUCOSE (02/01/2019 12:04 PM CDT) POC GLUCOSE 153 (H) 74 - 99 mg/dL [facility] [place] [employer] NAME Anni Bourgeois [facility] [place] Specimen Whole blood sample (specimen) Performing Organization Address [facility] CLIA # [id number] [place] [address] - [place] [address] [facility] CLIA # [id number] [place], [place] [address] - [place] 100 [facility] D[facility] * POC GLUCOSE (02/01/2019 8:41 AM CDT) POC GLUCOSE 161 (H) 74 - 99 mg/dL [facility] [place] [employer] NAME Anni Bourgeois [facility] [place] Specimen Whole blood sample (specimen) Performing Organization Address [facility] CLIA # [id number] [place] [address] - [place] 100 [facility] CLIA # [id number] [place], [place] [address] - [place] 100 [facility] * POC GLUCOSE (02/01/2019 2:10 AM CDT) POC GLUCOSE 172 (H) 74 - 99 mg/dL [facility] - [place] OPTICAL GLASS ETCHER NAME ranjana espinoza [facility] [place] Specimen Whole blood sample (specimen) Performing Organization Address [facility] CLIA # [id number] [place] [address] - [place] 100 [facility] CLIA # [id number] [place], [place] [address] - [place] 100 [facility] * BASIC METABOLIC PANEL (02/01/2019 12:22 AM CDT) SODIUM 136 136 - 145 mmol/L [facility] - [place] POTASSIUM 4.4 3.5 - 5.1 mmol/L [facility] [place] CHLORIDE 101 98 - 107 mmol/L [facility] - [place] CO2 24 22 - 29 mmol/L [facility] [place] CALCIUM 8.8 8.8 - 10.2 mg/dL [facility] - [place] BUN 18 8 - 23 mg/dL [facility] [place] CREATININE 0.85 0.67 - 1.17 mg/dL [facility] - [place] GLUCOSE 112 (H) 74 - 99 mg/dL [facility] - [place] GFR >60 >=60 mL/min/1.73 sq [facility] Comment: meter LABORATORY eGFR has not been validated SERVICES - for use in the elderly (> 70 [place] years of age), women, patients with serious co-morbid conditions, or persons with extremes of body size or muscle mass and should also be interpreted with caution in patients with acute kidney failure, dialysis dependent patients, patients reporting exceptional dietary intake (e.g. vegetarian diet, high protein diets, creatine supplementation), and patients with severe liver disease. Based on National Kidney Disease Education Program If patient is , please refer to the GFR result. GFR, >60 >=60 mL/min/1.73 sq [facility] KOSOVAN [facility] LABORATORY SERVICES - [place] ANION GAP 11 4 - 13 mmol/L [facility] - [place] Specimen Blood Performing Organization Address City/State/[facility] Ph one Number [facility] LAB[facility] SERVICES CLIA # [id number] [place] [address] - [place] 100 [facility] LABORATORY SERVICES CLIA # [id number] [place] [address] - [place] 100 [facility] * HEMOGLOBIN AND HEMATOCRIT (02/01/2019 12:22 AM CDT) HEMOGLOBIN 10.7 (L) 13.5 - 18.0 g/dL [facility] - [place] HEMATOCRIT 34.7 (L) 42.0 - 52.0 % [facility] - [place] Specimen Blood Performing Organization Address [facility] [place] one [facility] LABORATORY SERVICES CLIA # [id number] [place] [address] - [place] 100 [facility] LABORATORY SERVICES CLIA # [id number] [place], [place] [address] - [place] [address] [facility] [facility] [address] * POC GLUCOSE (01/31/2019 8:26 PM CDT) POC GLUCOSE 154 (H) 74 - 99 mg/dL [facility] - [place] OPTICAL GLASS ETCHER NAME Zachary Sumner [facility] - [place] Specimen Whole blood sample (specimen) Performing Organization Address [facility] [place] one [facility] LABORATORY SERVICES CLIA # [id number] [place] [address] - [place] 100 [facility] LABORATORY SERVICES CLIA # [id number] [place], [place] [address] - [place] 100 [facility] * POC GLUCOSE (01/31/2019 5:47 PM CDT) POC GLUCOSE 114 (H) 74 - 99 mg/dL [facility] - [place] OPTICAL GLASS ETCHER NAME Mary Braga [facility] SERVICES - [place] Specimen Whole blood sample (specimen) Performing Organization Address [facility] [place] one [facility] LABORATORY SERVICES CLIA # [id number] [place] [address] - [place] 100 [facility] LABORATORY SERVICES CLIA # [id number] [place], [place] [address] - [place] 100 [facility] * POC GLUCOSE (01/31/2019 10:55 AM CDT) POC GLUCOSE 147 (H) 74 - 99 mg/dL [facility] - [place] OPTICAL GLASS ETCHER NAME Mary Braga [facility] - [place] Specimen Whole blood sample (specimen) Performing Organization Address [facility] [place] one [facility] LABORATORY SERVICES CLIA # [id number] [place] [address] - [place] 100 [facility] LABORATORY SERVICES CLIA # [id number] [place], [place] [address] - [address] * EKG 12-LEAD (01/31/2019 10:20 AM CDT) Specimen Narrative Performed At Stationary ECG Study INTERFACE SYSTEM [address] [address] Test Date: 01/31/2019 11:01 AM Pat Name: OLIVERIO TINSLEY Department: 30 Room: [address] [place] [address] Gender: Male River Guide: [id number] : 1950 Requested By: Order Number: [id number] Reading MD: Juan Manuel Richey MD Severity: Abnormal ECG Measurements Intervals [place] Rate: 66 P: 32 MI: 212 QRS: -35 QRSD: 84 T: 80 QT: 420 QTc: 440 Interpretive Statements S inus rhythm with 1st degree AV block Left axis deviation Low voltage QRS Nonspecific T wave abnormality Abnormal ECG Electronically Signed On 01-31-2019 23:1 5:11 EDT by Juan Manuel Richey MD Procedure Note Interface, [facility] Incoming Radiology Results - 01/31/2019 10:15 PM CDT Stationary ECG Study [address] [address] Test Date: 01/31/2019 11:01 AM Pat Name: OLIVERIO TINSLEY Department: 30 Room: [address] [place] [address] Gender: Male River Guide: [id number] : 1950 Requested By: Order Number: [id number] Reading MD: Juan Manuel Richey MD Severity: Abnormal ECG Measurements Intervals [place] Rate: 66 P: 32 MI: 212 QRS: -35 QRSD: 84 T: 80 QT: 420 QTc: 440 Interpretive Statements Sinus rhythm with 1st degree AV block Left axis deviation Low voltage QRS Nonspecific T wave abnormality Abnormal ECG Electronically Signed On 01-31-2019 23:15:11 EDT by Juan Manuel Richey MD Performing Organization Address City/State/Zipcode Ph one Number INTERFACE SYSTEM INTERFACE SYSTEM Refer to clinic/hospital department * CL LT HEART CATHETERIZATION (01/31/2019 9:56 AM CDT) EJECTION 45 50 - 65 % [facility] CADIOLOGY Specimen Narrative Performed At [facility] CARDIAC CATHETERIZATION REPORT CADIOLOGY DATE OF THE PROCEDURE: 01/31/19 CLINICAL HISTORY: A 68-year-old white male with known coronary artery disease including prior surgical and pe rcutaneous vascularization procedures. The patient was admitted to the hospital with symptoms suggestive of accelerated/unstable winston na. A stress test was positive for ischemia. PROCEDURE: 1. Left heart catheterization. 2. Selective coronary arteriography. 3. Saphenous vein graft angiography. 4. Left internal mammary artery arter iography. 5. Left ventriculography. 6. Percutaneous vascularization of se ricardo in-stent re-stenosis in second obtuse marginal branch of left circumfl ex. 7. Percutaneous vascularization of lo ng severe disease in the mid left circumflex. 8. Percutaneous closure of right femo ral artery access site. ACCESS SITE: Right femoral artery. APPROACH: Percutaneous. SHEATH: 6-Tunisian. HEMODYNAMICS: Please see attached michael gram. There was no systolic gradient across the aortic valve. Lef t ventricular end diastolic pressure was normal. CORONARY ANGIOGRAPHY: LEFT CORONARY: The left main was winston ographically normal. Left anterior descending artery was totally occluded in the proximal segment just after a moderate size first diagonal branch b ut before the first septal branch. The left circumflex had mild proximal d isease. There was a very tiny first obtuse marginal branch. After t hat there was an eccentric 70% followed by 80% serial lesions in the m id left circumflex. Then, there was a moderate size second obtuse nika nal branch that appeared to have a stent in the proximal segment with 90% in-stent re-stenosis. The circumflex was dominant with a moderate size PDA branch off the distal circumflex that appeared to be angiogra phically normal. RIGHT CORONARY ARTERY: The non domina nt right coronary artery was small but angiographically normal. The vess el did supply a right to left collateral from an RV marginal branch t o the apical LAD. SAPHENOUS VEIN GRAFT ANGIOGRAPHY: The superior graft marker was first cannulated and found to represent a tot ally occluded vein graft. The inferior graft marker was then cannulat ed and found to represent a patent vein graft to the second diagonal branc h of the LAD. This graft did have stents in place with no significant in- stent re-stenosis. The anastomosis was normal. The alutiiq vessel after g raft anastomosis was normal. There was retrograde filling back into the mi d LAD and into a fairly large septal branch. The LAD was then again totally occluded in the mid/distal segment. LEFT INTERNAL MAMMARY ARTERY AORTOGRAPH Y: The left internal mammary artery was then cannulated and found to be widely patent but not used as a bypass graft. LEFT VENTRICULOGRAM: Left ventriculog lokesh performed in the REYES projection revealed mild anterolateral and diaphragmatic wall hypokinesis with a focal area of apical akinesis. The LV score is 6, ejection fraction 45%. There is no significant mitral regurgitation. PERCUTANEOUS VASCULARIZATION: At the conclusion of the procedure we elected to proceed on with percutaneous vascularization of severe multi site disease and the dominant left circ umflex appeared to be responsible for the finding of inferior wall ischem ia. After an IV heparin bolus a 6-Tunisian JL -4 guiding catheter was selected and advanced over a J-Tip wire back int o the ascending aorta. The guide was then intubated to the origin of the left main. A 0.014 ChoICE Extra Support guidewire was then selected and advanced into the guide down the left circumflex and across the mid dise ase with mild difficulty. The wire was then advanced fairly easily and manny prisingly through the subtotal in-stent disease in the second obtuse m arginal branch. A second 0.014 ChoICE PT Support wire w as then selected and advanced into the guide, down the circumflex across t he mid disease and out into the PDA branch. PTCA was then performed inside the benjie re in-stent disease in the second obtuse marginal branch with a 2.5 mm Em erge balloon. Repeat inflations at high pressure were performed. There a ppeared to be full balloon expansion but severe lesion recoil with haziness at the ostium of the vessel. Therefore, we felt the need to proceed on with secondary stenting. Before that, the mid circumflex was pre dilated with a 3.0 x 30 mm Emerge balloon. We had some difficulty advan cing the balloon past the origin of the second OM branch because there appe ared to be some stent struts extending into the lumen of the mid cir cumflex. After pre dilatation was performed a 2.5 x 8 mm Promus drug-elut ing stent was selected and advanced over the wire in the second OM branch. Unfortunately, we were unable to advance a stent into the origin of the second OM branch. We initially felt this was because the wire was poss ibly under a stent strut. Therefore, we withdrew the wire from th e second OM branch and re advanced it back into the second OM branch. De spite multiple repositionings of the wire, the stent would not advance. Th erefore, the stent was removed intact. Additional PTCA was performed with a 2.5 mm Emerge balloon. We then directed attention back to the mid circumflex. A 3.5 x 32 mm Promus drug-eluting stent was then selected and advanced over the guidewire in the true circumfl ex. Unfortunately, this stent would not advance past the struts protr uding out into the lumen of the mid left circumflex. Therefore, additiona l pre dilatations were first performed with a 3.5 mm Emerge balloon followed by a 3.5 mm Quantum balloon at high pressure. Ultimately, we were able to successfully advance the 3.5 mm x 32 mm Promus stent into the mid left circumflex where the stent was deployed at nominal and t hen maximum pressure. Under fluoroscopy there was complete stent ex pansion. Of note, this stent did place the first and second obtuse nika nal branches in stent senior living. Repeat angiography following that showed a mejia y good angiographic result in this mid segment with no residual stenosis, brisk FARSHAD 3 flow and no dissection. The diagonal branches rem ained patent. Unfortunately, there remained severe disease at the origin o f the second OM branch due to severe lesion recoil. Therefore, we o pted to withdraw the PT support wire from the distal circumflex back into th e mid left circumflex and advance the wire through the side struts of the long Promus stent that was just placed. The wire was then advanced th rough the stent at the origin of the second OM branch, again with ease. Th is wire was advanced out into the distal portion of the second OM branch. Then, a new 2 mm Emerge balloon was selected and advanced back into the origin of the second OM branch where high pressure inflations were per formed. As a last ditch attempt we again selected the 2.5 mm x 8 mm Promus stent and this time with significant difficulty the stent did ev entually advance through the side struts of the stent in the mid circumfl ex into the second OM branch where it was deployed at maximum and then hig h pressure. Repeat angiography following that showed excellent angiogr aphic results and no residual stenosis in the OM branch with brisk TI IA 3 flow and no dissection. There appeared to be some slight plaque prola pse or a strut prolapse into the true circumflex but no change in flow a nd no significant obstruction. PERCUTANEOUS ACCESS SITE CLOSURE: At the conclusion of the procedure the right femoral artery access site was cl osed percutaneously with an Angio-Seal device. This resulted in g ood hemostasis. PROCEDURAL COMPLICATIONS: None. ESTIMATED BLOOD LOSS: Approximately 1 00 ml. SUMMARY: 1. Multi vessel coronary artery disea se with multiple site chronic total occlusions of the LAD as described abov e. There are severe serial lesions in the mid left circumflex and severe i n-stent re-stenosis in the second obtuse marginal branch of the left circ umflex. The right coronary artery is non dominant and supplies a right to left collateral to the apical LAD. 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 3. Patent saphenous vein graft to sec ond diagonal branch of LAD. 4. Left internal mammary artery angio graphy revealing this vessel was not used for bypass graft. 5. Regional wall motion abnormalities of the left ventricle with estimated ejection fraction of 45%. 6. Successful although complex percut aneous vascularization of severe multi site disease in the left circumfl ex vessel using combined approach of pre dilatation and drug-eluting sten t placement in the mid left circumflex as well as pre dilatation an d drug-eluting stent placement for severe in-stent re-stenosis in the seco nd obtuse marginal branch with good angiographic results. 7. Successful percutaneous closure of right femoral artery access site. WC/grb - Transcribed in Epic - Procedure Note Walter Oconnor MD - 02/01/2019 10:36 AM CDT CARDIAC CATHETERIZATION REPORT DATE OF THE PROCEDURE: 01/31/19 CLINICAL HISTORY: A 68-year-old white male with known coronary artery disease including prior surgical and percutaneous vascularization procedures. The patient was admitted to the hospital with symptoms suggestive of accelerated/unstable angina. A stress test was positive for ischemia. PROCEDURE: 1. Left heart catheterization. 2. Selective coronary arteriography. 3. Saphenous vein graft angiography. 4. Left internal mammary artery arterio graphy. 5. Left ventriculography. 6. Percutaneous vascularization of benjie re in-stent re-stenosis in second obtuse marginal branch of left circumflex. 7. Percutaneous vascularization of long severe disease in the mid left circumflex. 8. Percutaneous closure of right femora l artery access site. ACCESS SITE: Right femoral artery. APPROACH: Percutaneous. SHEATH: 6-Tunisian. HEMODYNAMICS: Please see attached diagram. There was no systolic gradient across the aortic valve. Left ventricular end diastolic pressure was normal. CORONARY ANGIOGRAPHY: LEFT CORONARY: The left main was angiographically normal. Left anterior descending artery was totally occluded in the proximal segment just after a moderate size first diagonal branch but before the first septal branch. The left circumflex had mild proximal disease. There was a very tiny first obtuse marginal branch. After that there was an eccentric 70% followed by 80% serial lesions in the mid left circumflex. Then, there was a moderate size second obtuse marginal branch that appeared to have a stent in the proximal segment with 90% in-stent re-stenosis. The circumflex was dominant with a moderate size PDA branch off the distal circumflex that appeared to be angiographically normal. RIGHT CORONARY ARTERY: The non dominant right coronary artery was small but angiographically normal. The vessel did supply a right to left collateral from an RV marginal branch to the apical LAD. SAPHENOUS VEIN GRAFT ANGIOGRAPHY: The superior graft marker was first cannulated and found to represent a totally occluded vein graft. The inferior graft marker was then cannulated and found to represent a patent vein graft to the second diagonal branch of the LAD. This graft did have stents in place with no significant in-stent re-stenosis. The anastomosis was normal. The alutiiq vessel after graft anastomosis was normal. There was retrograde filling back into the mid LAD and into a fairly large septal branch. The LAD was then again totally occluded in the mid/distal segment. LEFT INTERNAL MAMMARY ARTERY AORTOGRAPHY: The left internal mammary artery was then cannulated and found to be widely patent but not used as a bypass graft. LEFT VENTRICULOGRAM: Left ventriculography performed in the REYES projection revealed mild anterolateral and diaphragmatic wall hypokinesis with a focal area of apical akinesis. The LV score is 6, ejection fraction 45%. There is no significant mitral regurgitation. PERCUTANEOUS VASCULARIZATION: At the conclusion of the procedure we elected to proceed on with percutaneous vascularization of severe multi site disease and the dominant left circumflex appeared to be responsible for the finding of inferior wall ischemia. After an IV heparin bolus a 6-Tunisian JL-4 guiding catheter was selected and advanced over a J-Tip wire back into the ascending aorta. The guide was then intubated to the origin of the left main. A 0.014 ChoICE Extra Support guidewire was then selected and advanced into the guide down the left circumflex and across the mid disease with mild difficulty. The wire was then advanced fairly easily and surprisingly through the subtotal in-stent disease in the second obtuse marginal branch. A second 0.014 ChoICE PT Support wire was then selected and advanced into the guide, down the circumflex across the mid disease and out into the PDA branch. PTCA was then performed inside the severe in-stent disease in the second obtuse marginal branch with a 2.5 mm Emerge balloon. Repeat inflations at high pressure were performed. There appeared to be full balloon expansion but severe lesion recoil with haziness at the ostium of the vessel. Therefore, we felt the need to proceed on with secondary stenting. Before that, the mid circumflex was pre dilated with a 3.0 x 30 mm Emerge balloon. We had some difficulty advancing the balloon past the origin of the second OM branch because there appeared to be some stent struts extending into the lumen of the mid circumflex. After pre dilatation was performed a 2.5 x 8 mm Promus drug-eluting stent was selected and advanced over the wire in the second OM branch. Unfortunately, we were unable to advance a stent into the origin of the second OM branch. We initially felt this was because the wire was possibly under a stent strut. Therefore, we withdrew the wire from the second OM branch and re advanced it back into the second OM branch. Despite multiple repositionings of the wire, the stent would not advance. Therefore, the stent was removed intact. Additional PTCA was performed with a 2.5 mm Emerge balloon. We then directed attention back to the mid circumflex. A 3.5 x 32 mm Promus drug-eluting stent was then selected and advanced over the guidewire in the true circumflex. Unfortunately, this stent would not advance past the struts protruding out into the lumen of the mid left circumflex. Therefore, additional pre dilatations were first performed with a 3.5 mm Emerge balloon followed by a 3.5 mm Quantum balloon at high pressure. Ultimately, we were able to successfully advance the 3.5 mm x 32 mm Promus stent into the mid left circumflex where the stent was deployed at nominal and then maximum pressure. Under fluoroscopy there was complete stent expansion. Of note, this stent did place the first and second obtuse marginal branches in stent senior living. Repeat angiography following that showed a very good angiographic result in this mid segment with no residual stenosis, brisk FARSHAD 3 flow and no dissection. The diagonal branches remained patent. Unfortunately, there remained severe disease at the origin of the second OM branch due to severe lesion recoil. Therefore, we opted to withdraw the PT support wire from the distal circumflex back into the mid left circumflex and advance the wire through the side struts of the long Promus stent that was just placed. The wire was then advanced through the stent at the origin of the second OM branch, again with ease. This wire was advanced out into the distal portion of the second OM branch. Then, a new 2 mm Emerge balloon was selected and advanced back into the origin of the s econd OM branch where high pressure inflations were performed. As a last ditch attempt we again selected the 2.5 mm x 8 mm Promus stent and this time with significant difficulty the stent did eventually advance through the side struts of the stent in the mid circumflex into the second OM branch where it was deployed at maximum and then high pressure. Repeat angiography following that showed excellent angiographic results and no residual stenosis in the OM branch with brisk FARSHAD 3 flow and no dissection. There appeared to be some slight plaque prolapse or a strut prolapse into the true circumflex but no change in flow and no significant obstruction. PERCUTANEOUS ACCESS SITE CLOSURE: At the conclusion of the procedure the right femoral artery access site was closed percutaneously with an Angio-Seal device. This resulted in good hemostasis. PROCEDURAL COMPLICATIONS: None. ESTIMATED BLOOD LOSS: Approximately 100 ml. SUMMARY: 1. Multi vessel coronary artery disease with multiple site chronic total occlusions of the LAD as described above. There are severe serial lesions in the mid left circumflex and severe in-stent re-stenosis in the second obtuse marginal branch of the left circumflex. The right coronary artery is non dominant and supplies a right to left collateral to the apical LAD. 2 Chronic total occlusion of one of tw o vein grafts. 3. Patent saphenous vein graft to secon d diagonal branch of LAD. 4. Left internal mammary artery angiogr aphy revealing this vessel was not used for bypass graft. 5. Regional wall motion abnormalities o f the left ventricle with estimated ejection fraction of 45%. 6. Successful although complex percutan eous vascularization of severe multi site disease in the left circumflex vessel using combined approach of pre dilatation and drug-eluting stent placement in the mid left circumflex as well as pre dilatation and drug-eluting stent placement for severe in-stent re- stenosis in the second obtuse marginal branch with good angiographic results. 7. Successful percutaneous closure of r ight femoral artery access site. WC/grb - Transcribed in Epic - Performing Organization Address [facility] [place] one [facility] [place] CLIA # [id number] [place] [address] [address] * POC GLUCOSE (01/31/2019 3:01 AM CDT) POC GLUCOSE 96 74 - 99 mg/dL [facility] - [place] OPTICAL GLASS ETCHER NAME Fransisca Jerez [facility] - [place] Specimen Whole blood sample (specimen) Performing Organization Address [facility] LABORATORY SERVICES CLIA # [id number] [place] [address] - [place] 100 [facility] LABORATORY SERVICES CLIA # [id number] [place] [address] - [place] [address] * POC GLUCOSE (01/30/2019 9:20 PM CDT) POC GLUCOSE 75 74 - 99 mg/dL [facility] - [place] OPTICAL GLASS ETCHER NAME ranjana espinoza [facility] - [place] Specimen Whole blood sample (specimen) Performing Organization Address [facility] [place] one [facility] LABORATORY SERVICES CLIA # [id number] [place] [address] - [place] 100 [facility] LABORATORY SERVICES CLIA # [id number] [place], [place] [address] - [place] [address] * POC GLUCOSE (01/30/2019 5:28 PM CDT) POC GLUCOSE 207 (H) 74 - 99 mg/dL [facility] - [place] OPTICAL GLASS ETCHER NAME Mary Braga [facility] - [place] Specimen Whole blood sample (specimen) Performing Organization Address [facility] LABORATORY SERVICES CLIA # [id number] [place] [address] - [place] 100 [facility] LABORATORY SERVICES CLIA # [id number] [place], [place] [address] - [place] 100 [facility] * URINE CULTURE (01/30/2019 3:10 PM CDT) CULTURE Polymicrobial growth [facility] consistent with normal LABORATORY urethral radha and/or SERVICES - colonizing bacteria [place] Specimen Urine - Urine specimen obtained by clean catch procedure (specimen) Performing Organization Address City/State/Zipcode Ph one Number [facility] LABOR[facility]ORY SERVICES CLIA # [id number] [place] [address] - [place] 100 [facility] LABORATORY SERVICES CLIA # [id number] [place], [place] [address] - [place] 100 [facility] * URINALYSIS WITH REFLEX CULTURE (01/30/2019 3:10 PM CDT) COLOR UA Yellow Pale to dark yellow [facility] - [place] CLARITY UA Slightly Cloudy (A) Clear [facility] - [place] SPECIFIC 1.008 1.003 - 1.035 [facility] - [place] PH UA 6.0 5.0 - 8.0 [facility] - [place] LEUKOCYTE 3+ (A) Negative [facility] ESTERASE [facility] LAB[facility] SERVICES - [place] NITRITE UA Positive (A) Negative [facility] [place] PROTEIN UA Negative Negative [facility] [place] GLUCOSE UA Negative Negative [facility] - [place] KETONES UA Trace (A) Negative [facility] - [place] UROBILINOGEN UA <2.0 <2.0 mg/dL [facility] - [place] BILIRUBIN UA Negative Negative [facility] [place] BLOOD UA 2+ (A) Negative [facility] - [place] WBC UA >100 (A) 0 - 2 /hpf [facility] - [place] RBC UA 6-10 (A) 0 - 2 /hpf [facility] [place] BACTERIA UA 2+ (A) Negative /hpf [facility] - [place] EPITHELIAL 0-5 0 - 5 /hpf [facility] CELLS, URINE LABORATORY SERVICES - [place] HYALINE CAST 0-2 None Seen, 0-2 /lpf [facility] - [place] AMORPHOUS Present (A) Absent [facility] LABORATORY SERVICES - [place] WBC CLUMPS Present (A)Comment: Few Absent [facility] - [place] Specimen Urine - Urine specimen obtained by clean catch procedure (specimen) Narrative Performed At Based on results, a urine culture has been reflexed. [facility] - [place] Performing Organization Address [facility] Ph one Number [facility] LABORATORY SERVICES CLIA # [id number] [place] [address] - [place] 100 [facility] LABORATORY SERVICES CLIA # [id number] [place], [place] [address] - [place] 100 [facility] * POC GLUCOSE (01/30/2019 1:05 PM CDT) POC GLUCOSE 143 (H) 74 - 99 mg/dL [facility] - [place] OPTICAL GLASS ETCHER NAME cecil feng [facility] - [place] Specimen Whole blood sample (specimen) Performing Organization Address [facility] Ph one Number [facility] LABORATORY SERVICES CLIA # [id number] [place] [address] - [place] 100 [facility] LABORATORY SERVICES CLIA # [id number] [place], [place] [address] - [place] [address] [facility] * NM MYOCARD PERF IMAG SPECT MULT (01/30/2019 12:22 PM CDT) EJECTION 57 50 - 65 % INTERFACE FRACTION SYSTEM Specimen Impressions Performed At Impression: INTERFACE SYSTEM 1. Small reversible defect, anterosepta l wall towards apex. 2. Small fixed defect, apex. 3. Moderate to large reversible defect inferior wall with considerable improvement compared to prior imaging. 4. Normal left ventricle ejection fract ion of 57%. [facility] protocol normal values: Left ventricular ejection fraction: Males >= 50%. Females >=43%. Left ventricular volumes: Males EDV 119 ml, ESV 55 ml. Females EDV 91 ml, ESV 40 ml. Narrative Performed At Myocardial Scan, Stress and Rest, SPECT. INTERFAC E SYSTEM History: Chest pain, chronic, high prob of CAD; . Comparison: 09/15/2005. Stress protocol: Lexiscan. SPECT rest and stress perfusion images of the myocardium were obtained following the intravenous injection of 10 mCi and 30 mCi of technetium 99m sestamibi. Subsequent gated stress functional images of the left ventricle and myocardium acquired. Images show a previous fixed defect wit hin the anteroseptal wall near the apex is now completely reversible, LAD territory. Small fixed defect at the apex is unchanged. Additi onally, there is a moderate to large defect within the inferior wall w hich is most reversible, considerably improved from previous constantine ging. Normal physiologic distribution of activity throughout the remaining left ventricular myocardium. Left ventricular chamber size is normal . End diastolic volume is 115 ml. End systolic volume of 50 ml. Gat ed images show a normal left ventricular ejection fraction of 57%. S troke volume of 65 ml. TID ratio of 1.08 is normal. Wall motion within normal limits. Procedure Note Interface, [facility] Incoming Radiology Results - 01/30/2019 12:52 PM CDT Myocardial Scan, Stress and Rest, SPECT. History: Chest pain, chronic, high prob of CAD; . Comparison: 09/15/2005. Stress protocol: Lexiscan. SPECT rest and stress perfusion images of the myocardium were obtained following the intravenous injection of 10 mCi and 30 mCi of technetium 99m sestamibi. Subsequent gated stress f unctional images of the left ventricle and myocardium acquired. Images show a previous fixed defect within the anteroseptal wall near the apex is now completely reversible, LAD territory. Small fixed defect at the apex is unchanged. Additionally, there is a moderate to large defect within the inferior wall which is most reversible, considerably improved from previous imaging. Normal physiologic distribution of activity throughout the remaining left ventricular myocardium. Left ventricular chamber size is normal. End diastolic volume is 115 ml. End systolic volume of 50 ml. Gated images show a normal left ventricular ejection fraction of 57%. Stroke volume of 65 ml. TID ratio of 1.08 is normal. Wall motion within normal limits. Impression: 1. Small reversible defect, anteroseptal wall towards apex. 2. Small fixed defect, apex. 3. Moderate to large reversible defect i nferior wall with considerable improvement compared to prior imaging. 4. Normal left ventricle ejection fracti on of 57%. [facility] protocol normal values: Left ventricular ejection fraction: Males >= 50%. Females >=43%. Left ventricular volumes: Males EDV 119 ml, ESV 55 ml. Females EDV 91 ml, ESV 40 ml. Performing Organization Address [facility] one Number INTERFACE SYSTEM INTERFACE SYSTEM Refer to clinic/hospital department * NM PHARMACOLOGICAL STRESS TEST (01/30/2019 10:29 AM CDT) Specimen Narrative [facility]formed At [facility] Cardiology - [place] CADIOLOGY STRESS REPORT Name: Oliverio Tinsley : 1950 Sex: male Date: 01/30/2019 Referring Provider: Kyle Caruso MD 100 [facility] [place] [address] PCP: Claus Couch MD Exhibit Designer: NONE Ordering Physician: Carlita Caruso Family Physician: Claus Couch MD History/Indications: Chest Pain Intervention: Lexiscan 0.4mg IV over 10 seconds Baseline ECG: Abnormal: Normal sinus rh ythm with first-degree AV block and poor progression in a pattern where ant eroseptal infarct age cannot be ruled out Symptoms: Dyspnea, nausea and coughing ECG changes: None and no dysrhythmias e xcept for occasionally asymptomatic PVCs Baseline blood pressure: 164/85 Response to intervention: Normal Heart rate response: Normal Supervising Provider: Dr Corey Santillan Performing Organization Address [facility] [place] one Number [facility] CLIA # [id number] [place] [address] CADIOLOGY 100 [facility] * POC GLUCOSE (01/30/2019 7:50 AM CDT) POC GLUCOSE 133 (H) 74 - 99 mg/dL [facility] - [place] OPT[employer] GLASS ETCHER NAME Mary Braga [facility] [place] Specimen Whole blood sample (specimen) Performing Organization Address [facility] [place] one [facility] LABORATORY SERVICES CLIA # [id number] [place] [address] [facility] 100 [facility] LABORATORY SERVICES CLIA # [id number] [place] [address] - [address] * LIPID PANEL (01/30/2019 3:26 AM CDT) CHOLESTEROL 121 <200 mg/dL [facility] [place] TRIGLYCERIDE 163 (H) <150 mg/dL [facility] SERVICES - [place] HDL 42 40 - 59 mg/dL [facility] SERVICES - [place] LDL CALCULATED 46 <100 mg/dL [facility] - [place] NON-HDL 79 <130 mg/dL [facility] CHOLESTEROL LABORATORY SERVICES - [place] Specimen Blood Narrative Performed At TOTAL CHOLESTEROL mg/dL [facility] LABORATORY Desirable <200 SERVICES - [place] Borderline high 200-239 High >=240 TRIGLYCERIDES mg/dL Normal <150 Borderline high 150-199 High 200-499 Very high >=500 HDL CHOLESTEROL mg/dL Low <40 Normal 40-59 Desirable >=60 NON HDL CHOLESTEROL mg/dL Optimal <130 Near Optimal 130-159 Borderline High 160-189 Very High >=190 Calculated LDL mg/dL Optimal <100 Near Optimal 100-129 Borderline High 130-159 High 160-189 Very High >=190 ATPIII Guidelines Reference Ranges for Lipid Panels (NCEP/AMA) Performing Organization Address [facility] Ph one [facility] SERVICES CLIA # [id number] [place] [address] - [place] 100 [facility] SERVICES CLIA # [id number] [place], [place] [address] - [place] 100 [facility] * POC GLUCOSE (01/30/2019 1:33 AM CDT) POC GLUCOSE 124 (H) 74 - 99 mg/dL [facility] [place] OPT[employer] ETCHER NAME walker dora [facility] [place] Specimen Whole blood sample (specimen) Performing Organization Address [facility] Ph one [facility] CLIA # [id number] [place] [address] - [place] 100 [facility] [employer] SERVICES CLIA # [id number] [place], [place] [address] - [place] 100 [facility] * TROPONIN 6 HR, 5TH GEN (01/30/2019 1:10 AM CDT) TROPONIN T, 6 37 (H) <=15 ng/L [facility] HR 5TH GEN LABORATORY SERVICES - [place] Specimen Blood Narrative Performed At Troponin elevated. [facility] LABORATORY Unable to calculate delta. SERVICES - [place] Performing Organization Address City/State/Zipcode Ph one Number [facility] LABORATORY SERVICES CLIA # [id number] [place] [address] - [place] 100 [facility] LABORATORY SERVICES CLIA # [id number] [place] [address] - [place] 100 [facility] * COMPREHENSIVE METABOLIC PANEL (01/30/2019 1:10 AM CDT) SODIUM 135 (L) 136 - 145 mmol/L [facility] - [place] POTASSIUM 4.4 3.5 - 5.1 mmol/L [facility] SERVICES - [place] CHLORIDE 100 98 - 107 mmol/L [facility] SERVICES - [place] CO2 22 22 - 29 mmol/L [facility] SERVICES - [place] CALCIUM 9.0 8.8 - 10.2 mg/dL [facility] SERVICES - [place] BUN 19 8 - 23 mg/dL [facility] SERVICES - [place] CREATININE 0.90 0.67 - 1.17 mg/dL [facility] - [place] GLUCOSE 135 (H) 74 - 99 mg/dL [facility] - [place] TOTAL PROTEIN 6.8 6.4 - 8.3 g/dL [facility] LAB[facility]AT[facility] SERVICES - [place] ALBUMIN 3.8 (L) 4.0 - 4.9 g/dL [facility] - [place] BILIRUBIN TOTAL 0.3 <=1.2 mg/dL [facility] SERVICES - [place] ALKALINE 138 (H) 40 - 129 U/L [facility] LABORATORY SERVICES - [place] AST 219 (H) 0 - 40 U/L [facility] - [place] ALT 51 (H) 0 - 41 U/L [facility] - [place] GFR >60 >=60 mL/min/1.73 sq [facility] Comment: meter LABORATORY eGFR has not been validated SERVICES - for use in the elderly (> 70 [place] years of age), women, patients with serious co-morbid conditions, or persons with extremes of body size or muscle mass and should also be interpreted with caution in patients with acute kidney failure, dialysis dependent patients, patients reporting exceptional dietary intake (e.g. vegetarian diet, high protein diets, creatine supplementation), and patients with severe liver disease. Based on National Kidney Disease Education Program If patient is , please refer to the GFR result. GFR, >60 >=60 mL/min/1.73 sq [facility] LABORATORY SERVICES - [place] ANION GAP 13 4 - 13 mmol/L [facility] LAB[facility]ORY SERVICES - [place] Specimen Blood Performing Organization Address [facility] [place] one [facility] LABORATORY SERVICES CLIA # [id number] [place] [address] - [place] 100 [facility] LABORATORY SERVICES CLIA # [id number] [place] [address] [place] 100 [facility] * PROTIME-INR (01/30/2019 1:10 AM CDT) PROTIME 15.3 (H) 11.8 - 14.6 Seconds [facility] SERVICES - [place] INR 1.2 0.9 - 1.2 [facility] LAB[facility] SERVICES - [place] Specimen Blood Narrative Performed At Therapeutic range: 2.0 - 3.5 [facility] - [place] Performing Organization Address [facility] [place] one Number [facility] LABORATORY SERVICES CLIA # [id number] [place] [address] - [place] 100 [facility] LABORATORY SERVICES CLIA # [id number] [place] [address] - [place] 100 [facility] * CBC WITH DIFFERENTIAL (01/30/2019 1:10 AM CDT) WBC 6.7 4.0 - 11.0 K/uL [facility] - [place] RBC 4.24 (L) 4.70 - 6.00 M/uL [facility] SERVICES - [place] HEMOGLOBIN 11.3 (L) 13.5 - 18.0 g/dL [employer] LABORATORY SERVICES - [place] HEMATOCRIT 36.5 (L) 42.0 - 52.0 % [facility] LAB[facility]ATORY SERVICES - [place] MCV 86.1 78.0 - 100.0 fL [facility] SERVICES - [place] MCH 26.7 (L) 27.0 - 34.0 pg [facility] - [place] MCHC 31.0 31.0 - 37.0 g/dL [facility] - [place] RDW 15.7 (H) 12.0 - 15.0 % [facility] - [place] RDW-STDEV 48.9 (H) 37.1 - 48.7 fL [facility] - [place] PLATELETS 277 150 - 450 K/uL [facility] - [place] MPV 8.2 (L) 9.3 - 12.4 fL [facility] - [place] NEUTROPHILS 61 31 - 76 % [facility] [place] LYMPHOCYTES 27 24 - 44 % [facility] [place] MONOCYTES 10 2 - 11 % [facility] - [place] EOSINOPHILS 2 0 - 6 % [facility] [place] BASOPHILS 0 0 - 2 % [facility] - [place] IMMATURE 1 0 - 2 % [facility] GRANULOCYTES LAB[facility]ORY SERVICES - [place] NEUTROPHIL 4.05 1.80 - 7.70 K/uL [facility] ABSOLUTE LAB[facility] SERVICES - [place] LYMPHOCYTE 1.81 1.00 - 4.80 K/uL [facility] - [place] MONOCYTE 0.64 0.10 - 1.30 K/uL [facility]OLUTE [facility] - [place] EOSINOPHIL 0.13 0.00 - 0.70 K/uL [facility]OLUTE [facility] - [place] BASOPHILS 0.01 0.00 - 0.20 K/uL [facility] SERVICES - [place] IMMATURE 0.04 0.00 - 0.10 K/uL [facility] GRANULOCYTES LABORATORY ABSOLUTE SERVICES - [place] Specimen Blood Performing Organization Address City/[facility] Ph one Number [facility] LABORATORY SERVICES CLIA # [id number] [place] [address] - [place] 100 [facility] LABORATORY SERVICES CLIA # [id number] [place] [address] - [place] 100 [facility] * TSH (01/30/2019 1:10 AM CDT) TSH 1.06 0.27 - 4.20 uIU/mL [facility] LABORATORY SERVICES - [place] Specimen Blood Performing Organization Address City/[facility] Ph one Number [facility] LABORATORY SERVICES CLIA # [id number] [place] [address] - [place] 100 [facility] LABORATORY SERVICES CLIA # [id number] [place] [address] - [place] 100 [facility] * HEMOGLOBIN A1C (01/30/2019 1:10 AM CDT) HEMOGLOBIN A1C 6.1 (H) 4.8 - 5.9 % [facility] [place] EST. AVG 128 mg/dL [facility] GLUCOSE, A1C LABORATORY SERVICES - [place] Specimen Blood Narrative Performed At HGB A1C INTERPRETATION [facility] LABORATORY NORMAL: <5.7% SERVICES - [place] PRE-DIABETES: 5.7 - 6.4% DIABETES: 6.5% OR GREATER Performing Organization Address City/[facility] [place] one Number [facility] LABORATORY SERVICES CLIA # [id number] [place] [address] - [place] 100 [facility] [place] [facility] LAB[facility]ATORY SERVICES CLIA # [id number] [place] [address] - [place] 100 [facility] [place] * XR CHEST PA OR AP 1 VW (01/29/2019 7:45 PM CDT) Specimen Impressions Performed At IMPRESSION: INTERFACE SYSTEM Negative for acute infiltrate Narrative Performed At Exam: XR CHEST PA OR AP 1 VW INTERFACE SYSTEM Date/Time of Exam: 01/29/2019 7:45 PM Reason for Study: Chest Pain CLINICAL INDICATION: See Reason for Exam COMPARISON: Chest x-ray 2017 FINDINGS: The heart size is within normal limits Negative for consolidative infiltrate Negative for significant pulmonary vasc ular congestion Negative for significant pleural effusi on Negative for pneumothorax Mediastinal, hilar contours within norm al limits Procedure Note Interface, [facility] Incoming Radiology Results - 01/29/2019 8:16 PM CDT Exam: XR CHEST PA OR AP 1 VW Date/Time of Exam: 01/29/2019 7:45 PM Reason for Study: Chest Pain CLINICAL INDICATION: See Reason for Exam COMPARISON: Chest x-ray 2017 FINDINGS: The heart size is within normal limits Negative for consolidative infiltrate Negative for significant pulmonary vascular congestion Negative for significant pleural effusion Negative for pneumothorax Mediastinal, hilar contours within normal limits IMPRESSION: Negative for acute infiltrate Performing Organization Address City/State/[facility] Ph one Number INTERFACE SYSTEM INTERFACE SYSTEM Refer to clinic/hospital department * EKG 12-LEAD (01/29/2019 7:30 PM CDT) Specimen Narrative Performed At Stationary ECG Study INTERFACE SYSTEM [address] [address] Test Date: 01/29/2019 6:39 PM Pat Name: OLIVERIO TINSLEY Department: 30 Room: ED 17 ED 17 Gender: Male River Guide: JANET : 1950 Requested By: Order Number: [id number] Reading MD: Juan Manuel Richey MD Severity: Abnormal ECG Measurements Intervals Skipwith Rate: 60 P: 35 MI: 230 QRS: -32 QRSD: 74 T: 106 QT: 414 QTc: 414 Interpretive Statements S inus rhythm with 1st degree AV block Left axis deviation Low voltage QRS Nonspecific T wave abnormality Abnormal ECG Electronically Signed On 01-30-2019 7:39 :18 EDT by Juan Manuel Richey MD Procedure Note Interface, [facility] Incoming Radiology Results - 01/30/2019 6:39 AM CDT Stationary ECG Study [address] [address] Test Date: 01/29/2019 6:39 PM Pat Name: OLIVERIO TINSLEY Department: 30 Room: ED 17 ED 17 Gender: Male River Guide: JANET : 1950 Requested By: Order Number: [id number] Reading MD: Juan Manuel Richey MD Severity: Abnormal ECG Measurements Intervals [place] Rate: 60 P: 35 MI: 230 QRS: -32 QRSD: 74 T: 106 QT: 414 QTc: 414 Interpretive Statements Sinus rhythm with 1st degree AV block Left axis deviation Low voltage QRS Nonspecific T wave abnormality Abnormal ECG Electronically Signed On 01-30-2019 7:39:18 EDT by Juan Manuel Richey MD Performing Organization Address City/[facility] Ph one Number INTERFACE SYSTEM INTERFACE SYSTEM Refer to clinic/hospital department * TROPONIN 2 HR, 5TH GEN (01/29/2019 7:25 PM CDT) TROPONIN T, 2 38 (H) <=15 ng/L [facility] 5TH GEN LABORATORY SERVICES - [place] Specimen Blood Narrative Performed At Troponin elevated. [facility] LABORATORY Unable to calculate delta. 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 Abnormal cardiovascular stress test Other nonspecific abnormal cardiovascul ar system function study Coronary artery disease involving nativ e coronary artery of alutiiq heart without angina pectoris COPD (chronic obstructive pulmonary dis ease) Chronic airway obstruction, not elsewhe re classified Epilepsy Unspecified epilepsy without mention of intractable epilepsy 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, with long-term current use of insulin Acute cystitis without hematuria (POA) Acute cystitis documented in this encounter Administered Medications Action Date Dose Rate Site Medication Order MAR Action 02/01/2019 9:47 AM CDT 81 mg aspirin (ECOTRIN EC) tablet 81 mg Given 81 mg, Oral, DAILY, First dose on Wed01/31/19 at 1030, Until Discontinued, Routine, Post-Procedure (Invasive Cardiology) 81 mg Given 01/31/2019 11:15 AM CDT 02/01/2019 12:05 PM CDT 25 mg bethanechol (URECHOLINE) tablet 25 mg Given 25 mg, Oral, FOUR TIMES DAILY, First dose on Wed01/30/19 at 0600, Until Discontinued, Routine 25 mg Given 02/01/2019 5:56 AM CDT 25 mg Given 01/31/2019 8:20 PM CDT 02/01/2019 10:17 AM CDT 2,000 mg 100 mL/hr cefTRIAXone (ROCEPHIN) 2,000 mg in New Bag sodium chloride 0.9% 50 mL IVPB (MBP) 2,000 mg, IV, EVERY 24 HOURS (DAILY), First dose on Wed01/31/19 at 0900, Unti l Discontinued, Routine, Antibiotic Indication: Urinary Tract Infection(UTI ) / Infection 2,000 mg 100 mL/hr New Bag 01/31/2019 11:17 AM CDT 02/01/2019 9:47 AM CDT 10 mg cetirizine (ZyrTEC) tablet 10 mg Given 10 mg, Oral, DAILY, First dose on Wed01/30/19 at 0900, Until Discontinued, Routine 10 mg Given 01/31/2019 11:14 AM CDT 10 mg Given 01/30/2019 12:49 PM CDT 02/01/2019 9:46 AM CDT 75 mg clopidogrel (PLAVIX) tablet 75 mg Given 75 mg, Oral, DAILY, First dose on Wed01/30/19 at 0900, Until Discontinued, Routine 75 mg Given 01/31/2019 10:08 AM CDT 75 mg Given 01/30/2019 12:49 PM CDT 01/29/2019 9:20 PM CDT 80 mg Abdomen, Left Upper Quadrant enoxaparin (LOVENOX) injection 80 mg Given 80 mg (rounded from 77.1 mg = 1 mg/kg 77.1 kg), subCUT, ONE TIME ONLY, 1 dose , Bryant 01/29/19 at 2015, Routine, Indication: ACS/NSTEMI/STEMI 01/31/2019 8:22 PM CDT 10 mg ezetimibe (ZETIA) tablet 10 mg Given 10 mg, Oral, DAILY AT BEDTIME, First dose on Bryant 01/29/19 at 2315, Until Discontinued, Routine 10 mg Given 01/30/2019 10:01 PM CDT 02/01/2019 9:46 AM CDT 145 mg fenofibrate nanocrystallized (TRICOR) Given tablet 145 mg 145 mg, Oral, DAILY, First dose on Wed01/30/19 at 0900, Until Discontinued, Routine 145 mg Given 01/31/2019 11:13 AM CDT 145 mg Given 01/30/2019 12:49 PM CDT 02/01/2019 9:46 AM CDT 40 mg FLUoxetine (PROzac) capsule 40 mg Given 40 mg, Oral, DAILY, First dose on Wed01/30/19 at 0900, Until Discontinued, Routine 40 mg Given 01/31/2019 11:30 AM CDT 40 mg Given 01/30/2019 12:49 PM CDT 02/01/2019 12:07 PM CDT 1 Puff fluticasone furoate (ARNUITY) 100 Given mcg/actuation inhaler 1 Puff 1 Puff (100 mcg), Inhalation, DAILY RESPIRATORY, First dose on [facility] 01/30/19 at 0800, Until Discontinued, Routine 1 Puff Given 01/31/2019 11:20 AM CDT 1 Puff Given 01/30/2019 12:57 PM CDT 02/01/2019 12:01 PM CDT 5,000 Units Abdomina l Tissue heparin injection 5,000 Units Given 5,000 Units, subCUT, EVERY 8 HOURS, First dose on Wed01/30/19 at 2100, Unti l Discontinued, Routine 5,000 Units Abdomen, Left Upper Quadrant Given 02/01/2019 5:57 AM CDT 5,000 Units Abdomen, Left Lower Quadrant Given 01/31/2019 8:19 PM CDT 01/31/2019 11:20 AM CDT 1 Units Arm, Lef t Upper insulin lispro (HumaLOG) variable dose Given injection subCUT, THREE TIMES DAILY WITH MEALS, First dose on Wed01/30/19 at 0915, Unti l Discontinued, Routine 3 Units Abdomen, Right Lower Quadrant Given 01/30/2019 6:02 PM CDT insulin lispro (HumaLOG) variable dose injection subCUT, DAILY AT BEDTIME, First dose on Wed01/30/19 at 2100, Until Discontinued , Routine insulin lispro (HumaLOG) variable dose injection subCUT, DAILY 0200, First dose on Wed01/31/19 at 0200, Until Discontinued, Routine 01/31/2019 9:58 AM CDT 200 mL iopamidol (ISOVUE-300) 61 % injection Contrast 200 mL Given 200 mL, IV, INTRA-PROCEDURE ONCE, 1 dose, Starting Wed01/31/19 at 0832, Until Wed01/31/19 at 0958, Routine 01/31/2019 9:58 AM CDT 25 mL iopamidol (ISOVUE-300) 61 % injection Contrast 200 mL Given 200 mL, IV, INTRA-PROCEDURE ONCE, 1 dose, Starting Wed01/31/19 at 0958, Until Wed01/31/19 at 0958, Routine 02/01/2019 9:46 AM CDT 1 mg LORazepam (ATIVAN) tablet 1 mg Given 1 mg, Oral, TWO TIMES DAILY, First dose on Wed01/29/19 at 2330, Until Discontinued, Routine 1 mg Given 01/31/2019 8:22 PM CDT 1 mg Given 01/31/2019 11:14 AM CDT 02/01/2019 12:04 PM CDT 200 mg magnesium oxide (MAG-OX) tablet 200 mg Given 200 mg, Oral, THREE TIMES DAILY WITH MEALS, First dose on Wed01/30/19 at 0800, Until Discontinued, Routine 200 mg Given 02/01/2019 9:46 AM CDT 200 mg Given 01/31/2019 5:51 PM CDT 02/01/2019 9:47 AM CDT 12.5 mg metoprolol succinate (TOPROL XL) SR 24 Given hour tablet 12.5 mg 12.5 mg, Oral, DAILY, First dose on Wed01/30/19 at 0900, Until Discontinued, Routine 12.5 mg Given 01/31/2019 11:15 AM CDT 12.5 mg Given 01/30/2019 12:54 PM CDT 02/01/2019 12:04 PM CDT 1 Tablet multivitamin with folic acid 400 mcg Given tablet 1 Tablet 1 Tablet, Oral, DAILY AFTER LUNCH, Firs t dose on Wed01/30/19 at 1300, Until Discontinued, Routine 1 Tablet Given 01/31/2019 12:51 PM CDT 1 Tablet Given 01/30/2019 1:06 PM CDT 01/29/2019 7:38 PM CDT 1 Inch Chest, L eft nitroglycerin (NITRO-BID) 2 % topical Applied ointment 1 Inch 1 Inch, Topical, ONE TIME ONLY, 1 dose, Bryant 01/29/19 at 1945, Routine 01/31/2019 8:24 PM CDT 2.5 mg OLANZapine (ZyPREXA) tablet 2.5 mg Given 2.5 mg, Oral, DAILY AT BEDTIME, First dose on Wed01/29/19 at 2315, Until Discontinued, Routine 2.5 mg Given 01/30/2019 10:01 PM CDT 02/01/2019 10:16 AM CDT 4 mg ondansetron (ZOFRAN ODT) tablet 4 mg Given 4 mg, Oral, EVERY 6 HOURS PRN, Starting 01/29/19 at 2311, Until Wed02/01/19 at 1652, Nausea/Emesis, Routine 4 mg Given 01/31/2019 7:36 PM CDT 4 mg Given 01/31/2019 12:51 PM CDT 01/30/2019 10:57 AM CDT 4 mg ondansetron (ZOFRAN) 4 mg/2 mL injection Given 4 mg 4 mg, IV, ONE TIME ONLY, 1 dose, Wed01/30/19 at 1100, Routine 01/31/2019 9:09 PM CDT 1 Tablet oxyCODONE-acetaminophen (PERCOCET) Given 10-325 mg per tablet 1 Tablet 1 Tablet, Oral, EVERY 6 HOURS PRN, Starting Wed01/29/19 at 2311, Until Wed02/01/19 at 1652, Pain, Severe, Routine 02/01/2019 5:56 AM CDT 40 mg pantoprazole (PROTONIX) tablet 40 mg Given 40 mg, Oral, DAILY BEFORE BREAKFAST, First dose on Wed01/30/19 at 0600, Unti l Discontinued, Routine 02/01/2019 9:46 AM CDT 200 mg phenytoin sodium (DILANTIN) extended Given release capsule 200 mg 200 mg, Oral, TWO TIMES DAILY, First dose on Wed01/29/19 at 2315, Until Discontinued, Routine 200 mg Given 01/31/2019 8:23 PM CDT 200 mg Given 01/31/2019 11:14 AM CDT 01/29/2019 8:43 PM CDT 400 mg phenytoin sodium (DILANTIN) extended Given release capsule 400 mg 400 mg, Oral, ONE TIME ONLY, 1 dose, Meredith n 01/29/19 at 2015, Routine 02/01/2019 12:03 PM CDT 5 mg ramipril (ALTACE) capsule 5 mg Given 5 mg, Oral, DAILY WITH LUNCH, First dos e on Wed01/30/19 at 1200, Until Discontinued, Routine 5 mg Given 01/31/2019 11:16 AM CDT 5 mg Given 01/30/2019 12:56 PM CDT 01/30/2019 10:21 AM CDT 0.4 mg regadenoson (LEXISCAN) 0.4 mg/5 mL Given injection 0.4 mg, IV, INTRA-PROCEDURE ONCE, 1 dose, Starting Wed01/30/19 at 0814, Until Wed01/30/19 at 1021, Routine 01/31/2019 8:23 PM CDT 40 mg simvastatin (ZOCOR) tablet 40 mg Given 40 mg, Oral, DAILY AT BEDTIME, First dose on Wed01/29/19 at 2315, Until Discontinued, Routine 40 mg Given 01/30/2019 10:01 PM CDT 01/29/2019 7:39 PM CDT 500 mL 999 mL/hr sodium chloride 0.9% bolus solution 500 New Bag mL 500 mL, IV, ONE TIME ONLY, 1 dose, 01/29/19 at 1945, at 999 mL/hr, Administer over 30 Minutes, Routine 01/30/2019 5:51 PM CDT 30 mL/hr sodium chloride 0.9% infusion New Bag IV, at 30 mL/hr, PRE-PROCEDURE CONTINUOUS, Starting Wed01/30/19 at 1500, Until Wed02/01/19 at 1652, Routin e 01/31/2019 11:19 AM CDT 100 mL/hr sodium chloride 0.9% infusion New Bag IV, at 100 mL/hr, CONTINUOUS, Starting Wed01/31/19 at 1030, Until Wed01/31/19 at 1629, Routine, Post-Procedure (Invasive Cardiology) 01/30/2019 10:22 AM CDT 10 mL sodium chloride flush injection 10 mL Given 10 mL, IV, INTRA-PROCEDURE ONCE, 3 doses, Starting Wed01/30/19 at 0814, Until Wed01/30/19 at 1022, Routine 10 mL Given 01/30/2019 10:21 AM CDT 10 mL Given 01/30/2019 8:10 AM CDT 01/31/2019 5:51 PM CDT 0.4 mg tamsulosin (FLOMAX) SR 24 hour capsule Given 0.4 mg 0.4 mg, Oral, DAILY WITH SUPPER, First dose on Wed01/30/19 at 1700, Until Discontinued, Routine 0.4 mg Given 01/30/2019 5:50 PM CDT 01/31/2019 8:22 PM CDT 50 mg traZODone (DESYREL) tablet 50 mg Given 50 mg, Oral, DAILY AT BEDTIME, First dose on Wed01/29/19 at 2315, Until Discontinued, Routine 50 mg Given 01/30/2019 10:01 PM CDT documented in this encounter
--- OUTSIDE RECORDS SUMMARY | 2020-03-24 13:36 | XMS REPORT | Encounter Summary ---
Author Author [facility], [place], [place], [facility] Organization [facility] S[place] Anderson, [place], [facility] Address Unknown Phone Unavailable Care Team Providers Care Biological Aide Name Role Phone Claus Couch MD PCP Reason for Visit * Outpatient Services (Routine) Referred By Contact Referred To Contact Status Reason Specialty Diagnoses / Procedures Walter Oconnor MD [address] [place] [address] [address] [place] [address] [facility] [address] [place] [address] [place] [address] Closed [facility] CTS to Radiology Diagnoses Schedule Essential hypertension Coronary artery disease involving [place] coronary artery of [place] heart with angina pectoris P rocedures ECHO COMPLETE Encounter Details Care Team Description Date Type Department Walter Oconnor MD [address] [place] [address] [address] [place] [address] Canceled (Patient Requested) 03/20/2019 [facility] dical Encounter Building [address] [place] [address] Social History Date Tobacco Use Types [...] history available. documented as of this encounter Medications at Time of Discharge [...] needed for Shortness of Breath or Wheezing. documented as of this encounter Plan of Treatment Not on filedocumented as of this encounter Procedures Comments Procedure Name Priority Date/Time Associated Diag nosis ECHO COMPLETE Routine 03/27/2019 Essential hyper tension 11:20 AM CDT Coronary artery disease involving [place] coronary artery of [place] heart with angina pectoris documented in this encounter Results * ECHO COMPLETE (03/27/2019 11:20 AM CDT) EJECTION 60 50 - 65 % [facility] CADIOLOGY Specimen Impressions Performed At : [facility] 1. Left ventricular hypertrophy with diastolic dys function. CADIOLOGY 2. Preserved LV systolic function wi th overall ejection fraction estimated to be 60%. A small focal ar ea of apical wall hypokinesis cannot be excluded. 3. Mild mitral regurgitation with le ft atrial enlargement. 4. Aortic valve sclerosis with mild aortic insufficiency. There is no significant aortic stenosis. 5. Trivial to mild pulmonic insuffic iency. WC/grb - Transcribed in Epic - Narrative Performed At [facility] ECHOCARDIOGRAM REPORT: CADIOLOGY DATE OF ECHO: 03/27/19. REQUESTING: Dr. Oconnor CLINICAL HISTORY: A 68-year-old with coronary artery disease, hypertension and hyperlipidemia. TWO-DIMENSIONAL IMAGES: The study is technically adequate for review. On M-Mode assessment the left atrium is mo derately enlarged at 4.9 cm. There is mild left ventricular hypertrophy pr esent. LV chamber size is normal. LV systolic function appears to be pres erved. The overall ejection fraction is estimated to be normal at 6 0%. No severe regional wall motion abnormalities are identified. In some views there may be mild focal apical wall hypokinesis. The aortic v alve is mildly sclerotic. There is mild mitral annular calcification prese nt. Right heart valves appear anatomically normal. There is no serina cardial effusion. No intracardiac thrombi appreciated. The aortic root is normal in diameter at 3.6 cm. DOPPLER EXAMINATION: On color flow ex am there is mild mitral regurgitation, mild tricuspid regurgita tion and trivial to mild pulmonic insufficiency. The RV systolic pressu re cannot be accurately calculated. Flow velocities across the mitral valve do show E/A ratio reversal consistent with diastolic dysfunction. Flow velocities across the aortic valve are normal. Performing Organization Address City/State/Zipcode Ph one Number [facility] [place] # [id number] [place] Chao [phone] [place] [address] documented in this encounter Visit Diagnoses Not on filedocumented in this encounter
--- OUTSIDE RECORDS SUMMARY | 2020-03-24 13:36 | XMS REPORT | Encounter Summary ---
Author [facility] [place], [place], [facility] Organization [facility] Zhanna Anderson, Jose [place], [facility] Address Unknown Phone Unavailable Care Team Providers Care Dry Color Mixer Name Role Phone Claus Couch MD PCP Reason for Visit * Reason Comments Follow Up 2-4 wk post hospital denies cp sob edema , c/o sob with walking Encounter Details Care Team Description Date Type Department Kendall Mace APRN [address] [facility] [address] [place] [id number] Essential hypertension (Primary Dx); 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; Hyperlipidemia with target LDL less than 70; Tobacco dependence; Overweight (BMI 25.0-29.9); Hospital discharge follow-up 02/24/2019 Office Visit [facility] [place] [address] [facility] [address] [place] [id number] Social History Date Tobacco Use Types [...] Signs Reading Time Taken Comments Vital Sign 107/67 02/24/2019 10:48 AM CDT Blood Pressure 82 02/24/2019 10:48 AM CDT Pulse - - Temperature - - Respiratory Rate 97% 02/24/2019 10:48 AM CDT Oxygen Saturation - - Inhaled Oxygen Concentration 75.8 kg (167 lb) 02/24/2019 10:48 AM CDT Weight 167.6 cm (5' 6") 02/24/2019 10:48 AM CDT Height 26.95 02/24/2019 10:48 AM CDT Body Mass Index documented in this encounter Progress Notes * Walter Oconnor MD - 02/27/2019 12:04 PM CDT agree * Kendall Mace APRN - 02/24/2019 10:41 AM CDT Office Visit Patient Name: Oliverio Dalton : 1950 Age/Sex: 68 y.o. CSN: [id number] Visit Date: 02/24/19 Subjective: Oliverio Dalton is a 68 y.o. male who presents for Follow Up (2-4 wk po [facility] denies cp sob edema , c/o sob with walking) Primary Provider: Claus Couch MD Primary Casino Floorperson: Dr Oconnor The following statements must be viewed in reference to an outpatient office vis it situation and as presented on an electronic medical record. Although I revie wed the available and applicable records, I do not state that I reviewed all por tions of every entry into the medical record. I reviewed the portions of his nai ilable records that I believed were pertinent to his cardiac management, as appl icable and available. I believe that I reviewed pertinent information in regards to his cardiac situation, but I do not state unequivocally that I reviewed all information. HISTORY Patient denies any difficulty with his prescribed medications. Oliverio is a 68 yo male who presents to the clinic today for a hospital follow u p visit. He is sitting in a wheelchair and is accompanied by his sister who assi sts with providing information. He has known hypertension, hyperlipidemia, CAD, PAD, COPD and epilepsy. LAST HOSPITAL/OFFICE VISIT HISTORY: Oliverio was transferred to [facility] ED on 01/29/2019 from [facility] with complain ts of sharp, substernal chest pain that radiated down his left arm and started s uddenly at 1130. He received ASA, 50 mcg of Fentanyl and 4000 units of Heparin along with 3 NTG SL without relief of symptoms. He denied shortness of breath, leg swelling, palpitation, chills, congestion and fever. Cardiology was asked t o consult and Oliverio underwent stress test which showed significant inferior an d distal anterior ischemia. He was subsequently taken to the cardiac catheteriza tion suite with Dr Oconnor on 01/31/2019 and noted to have multi-vessel coronary ar alpa disease with multiple site chronic total occlusions of the LAD. He was fou nd to have several serial lesions in the mid left circumflex and severe in-stent re-stenosis in the second obtuse marginal branch of the left circumflex. The R CA was found to be non dominant and supplies a right to left collateral to the a pical LAD. He had chronic total occlusion of one of two vein grafts, a patent s aphenous vein graft to the second diagonal branch of the LAD. POWELL angiography was not used for bypass grafting. He had regional wall motion abnormalities of the LV with an estimated EF of 45%. Dr Oconnor was able to perform successful [facility] complex percutaneous vascularization of severe multi site disease in the le ft circumflex vessel using combined approach of pre dilatation and drug-eluting stent placement in the mid left circumflex as well as pre dilatation and drug-el uting stent placement for severe in-stent re-stenosis in the second obtuse nika nal branch with good angiographic results. Today Oliveroi reports that he has not had any further episodes of chest pain, pr essure or tightness. He denies dull chest ache and heaviness. He reports chronic mild shortness of breath and dyspnea on exertion and this is not any worse than usual. He denies PND and orthopnea. He does use a walker fo r ambulation and needs to have some assistance when walking due to frequent fall s. Oliverio denies dizziness, lightheadedness, denies near syncope and syncope. He does try to follow a heart healthy diet and is not very active but he does try t o stay busy. He reports that he is still smoking about one pack per day. He has been smoking off and on over the last 50 years. He has been battling bed bugs and recently had his home sprayed for them. The history is provided by the patient and a relative. No cable dispatcher w as used. Patient Active Problem List Diagnosis Date Noted Overweight (BMI 25.0-29.9) 02/24/2019 Priority: High Abnormal cardiovascular stress test 01/30/2019 Priority: Low Epilepsy 07/05/2018 Priority: Low Type 2 diabetes mellitus 07/04/2018 Priority: Low Tobacco dependence 06/20/2018 Priority: Low Bursitis of right elbow 01/24/2018 Priority: Low Gross hematuria Priority: Low Hemorrhagic cystitis Priority: Low Hematuria 2017 Priority: Low COPD (chronic obstructive pulmonary disease) 05/20/2015 Priority: Low Hypertension Priority: Low Hyperlipidemia with target LDL less than 70 Priority: Low Depression Priority: Low Chest pain, chronic 09/02/2012 Priority: Low Class: Acute Coronary artery disease involving hopland coronary artery of hopland heart wit h angina pectoris 09/02/2012 Priority: Low Class: Chronic Peripheral arterial disease 09/02/2012 Priority: Low Class: Chronic Dyspnea, chronic 09/02/2012 Priority: Low Class: Acute Current Outpatient Medications on File Prior to [...] facility-administered medications on file prior to visit. Allergies Allergen Reactions Penicillins Hives Codeine Unknown Doxycycline Rash Phenobarbital Weakness "relaxes me too much" Piperacillin-Tazobactam Hives and Rash Breaks out Sulfamethoxazole-Trimethoprim Nausea and Vomiting Terazosin Other (See Comments) Chest heaviness, chest pain Valium [Diazepam] Other (See Comments) "stops breathing, no pulse" Unresponsiveness "stops breathing, no pulse" "stops breathing, no pulse" Unresponsiveness ALLERGIES: Allergy list was reviewed with patient at the time of office visit a nd updated as necessary. MEDICATIONS; I reviewed the medication list with the patient and updated as needed based on i nformation provided to my nurse and to myself, by the patient (or their responsi ble constitution party where applicable). If there are inaccuracies, I am not aware of them at the time of this note. If made aware of any discrepancies, I will addend my note and update medication list. Patient's (and/or the responsible constitution party acting on their behalf) are responsible for maintaining an accurate list of current me dications, their doses and frequency of administration, as responsible participa nts in their healthcare. Past Medical History: Diagnosis Date Anxiety Arthritis CAD S/P percutaneous coronary angioplasty CHF (congestive heart failure) COPD (chronic obstructive pulmonary disease) Depression Epilepsy 07/05/2018 GERD (gastroesophageal reflux disease) Hyperlipidemia LDL goal < 70 Hypertension Peripheral vascular disease SUBJECTIVE Review of Systems Constitutional: Negative for activity change, appetite change, chills, diaphores is, fatigue, fever and unexpected weight change. HENT: Negative for hearing loss and nosebleeds. Eyes: Negative for visual disturbance. Respiratory: Negative for apnea, cough, choking, chest tightness, shortness of b reath and wheezing. Known COPD Cardiovascular: Negative for chest pain, palpitations and leg swelling. Known hypertension, hyperlipidemia, CAD, PAD Gastrointestinal: Negative for abdominal distention, abdominal pain, blood in st ool, constipation, diarrhea and nausea. Endocrine: Negative. Known diabetes Genitourinary: Negative. Musculoskeletal: Positive for back pain (chronic) and gait problem (uses walker- unsteady gait). Skin: Positive for wound (healing sores from bed bugs). Currently with sores in various stages of healing from beg bugs- house was sprayed two weeks ago Neurological: Negative for dizziness, syncope, speech difficulty, weakness and l ight-headedness. Hematological: Bruises/bleeds easily. Psychiatric/Behavioral: Negative for sleep disturbance. OBJECTIVE Objective Objective: BP 107/67 (BP Location: Left arm, Patient Position (BP): Sitting, BP Cuff Size: Adult) | Pulse 82 | Ht 5' 6" (1.676 m) | Wt 75.8 kg (167 lb) | SpO2 97% | B NV 26.95 kg/m BP Last Three Encounters 02/24/19 08/17/18 07/20/18 BP 107/67 137/77 132/76 Pulse 82 79 72 Temp -- 97 F (36.1 C) 96.7 F (35.9 C) Temp src -- Temporal Temporal SpO2 97 % -- -- Weight 75.8 kg (167 lb) 59 kg (130 lb) 59 kg (130 lb) Height 5' 6" (1.676 m) 5' 6" (1.676 m) 5' 6" (1.676 m Physical Exam Constitutional: He is oriented to person, place, and time. Vital signs are anish l. He appears well-developed and well-nourished. HENT: Head: Normocephalic and atraumatic. Eyes: Pupils are equal, round, and reactive to light. EOM are normal. Neck: Neck supple. No JVD present. Carotid bruit is not present. No thyromegaly present. Cardiovascular: Normal rate, regular rhythm, S1 normal, S2 normal, normal heart sounds and intact distal pulses. Exam reveals no gallop, no S3, no S4, no distan t heart sounds and no friction rub. No murmur heard. Pulses: Radial pulses are 2+ on the right side, and 2+ on the left side. Dorsalis pedis pulses are 2+ on the right side, and 2+ on the left side. Posterior tibial pulses are 2+ on the right side, and 2+ on the left side. Pulmonary/Chest: Effort normal and breath sounds normal. Abdominal: Soft. Normal appearance and bowel sounds are normal. Musculoskeletal: Normal range of motion. He exhibits no edema. Neurological: He is alert and oriented to person, place, and time. Skin: Skin is warm, dry and intact. Bed bug sores in various stages of healing noted Psychiatric: He has a normal mood and affect. His speech is normal and behavior is normal. Judgment and thought content normal. Cognition and memory are normal. Cardiac Catheterization: 01/31/2019 CARDIAC CATHETERIZATION REPORT DATE OF THE PROCEDURE: 01/31/19 CLINICAL HISTORY: A 68-year-old white male with known coronary artery disease i ncluding prior surgical and percutaneous vascularization procedures. The patien t was admitted to the hospital with symptoms suggestive of accelerated/unstable angina. A stress test was positive for ischemia. PROCEDURE: 1. Left heart catheterization. 2. Selective coronary arteriography. 3. Saphenous vein graft angiography. 4. Left internal mammary artery arteriography. 5. Left ventriculography. 6. Percutaneous vascularization of severe in-stent re-stenosis in second obtuse marginal branch of left circumflex. 7. Percutaneous vascularization of long severe disease in the mid left circumfl ex. 8. Percutaneous closure of right femoral artery access site. ACCESS SITE: Right femoral artery. APPROACH: Percutaneous. SHEATH: 6-Italian. HEMODYNAMICS: Please see attached diagram. There was no systolic gradient acro ss the aortic valve. Left ventricular end diastolic pressure was normal. CORONARY ANGIOGRAPHY: LEFT CORONARY: The left main was angiographically normal. Left anterior descen ding artery was totally occluded in the proximal segment just after a moderate s ize first diagonal branch but before the first septal branch. The left circumfl ex had mild proximal disease. There was a very tiny first obtuse marginal branc h. After that there was an eccentric 70% followed by 80% serial lesions in the mid left circumflex. Then, there was a moderate size second obtuse marginal bra nch that appeared to have a stent in the proximal segment with 90% in-stent re-s tenosis. The circumflex was dominant with a moderate size PDA branch off the di stal circumflex that appeared to be angiographically normal. RIGHT CORONARY ARTERY: The non dominant right coronary artery was small but ang iographically normal. The vessel did supply a right to left collateral from an RV marginal branch to the apical LAD. SAPHENOUS VEIN GRAFT ANGIOGRAPHY: The superior graft marker was first cannulate d and found to represent a totally occluded vein graft. The inferior graft jose er was then cannulated and found to represent a patent vein graft to the second diagonal branch of the LAD. This graft did have stents in place with no signifi cant in-stent re-stenosis. The anastomosis was normal. The hopland vessel after graft anastomosis was normal. There was retrograde filling back into the mid L AD and into a fairly large septal branch. The LAD was then again totally occlud ed in the mid/distal segment. LEFT INTERNAL MAMMARY ARTERY AORTOGRAPHY: The left internal mammary artery was then cannulated and found to be widely patent but not used as a bypass graft. LEFT VENTRICULOGRAM: Left ventriculography performed in the REYES projection reve aled mild anterolateral and diaphragmatic wall hypokinesis with a focal area of apical akinesis. The LV score is 6, ejection fraction 45%. There is no signifi cant mitral regurgitation. PERCUTANEOUS VASCULARIZATION: At the conclusion of the procedure we elected to proceed on with percutaneous vascularization of severe multi site disease and th e dominant left circumflex appeared to be responsible for the finding of inferio r wall ischemia. After an IV heparin bolus a 6-Italian JL-4 guiding catheter was selected and adva nced over a J-Tip wire back into the ascending aorta. The guide was then intuba roma to the origin of the left main. A 0.014 ChoICE Extra Support guidewire was then selected and advanced into the guide down the left circumflex and across th e mid disease with mild difficulty. The wire was then advanced fairly easily an d surprisingly through the subtotal in-stent disease in the second obtuse margin al branch. A second 0.014 ChoICE PT Support wire was then selected and advanced into the gu miller, down the circumflex across the mid disease and out into the PDA branch. PTCA was then performed inside the severe in-stent disease in the second obtuse marginal branch with a 2.5 mm Emerge balloon. Repeat inflations at high pressur e were performed. There appeared to be full balloon expansion but severe lesion recoil with haziness at the ostium of the vessel. Therefore, we felt the need to proceed on with secondary stenting. Before that, the mid circumflex was pre dilated with a 3.0 x 30 mm Emerge balloo n. We had some difficulty advancing the balloon past the origin of the second O M branch because there appeared to be some stent struts extending into the lumen of the mid circumflex. After pre dilatation was performed a 2.5 x 8 mm Promus drug-eluting stent was selected and advanced over the wire in the second OM bran ch. Unfortunately, we were unable to advance a stent into the origin of the sec ond OM branch. We initially felt this was [...] circumflex. Unfortunately, this stent would not advance p ast the struts protruding out into the lumen of the mid left circumflex. Theref ore, additional pre dilatations were first performed with a 3.5 mm Emerge balloo n followed by a 3.5 mm Quantum balloon at high pressure. Ultimately, we were ab le to successfully advance the 3.5 mm x 32 mm Promus stent into the mid left cir cumflex where the stent was deployed at nominal and then maximum pressure. Unde r fluoroscopy there was complete stent expansion. Of note, this stent did place the first and second obtuse marginal branches in stent senior living. Repeat angiograph y following that showed a very good angiographic result in this mid segment with no residual stenosis, brisk FARSHAD 3 flow and no dissection. The diagonal branch es remained patent. Unfortunately, there remained severe disease at the origin of the second OM branch due to severe lesion recoil. Therefore, we opted to wit hdraw the PT support wire from the distal circumflex back into the mid left circ umflex and advance the wire through the side struts of the long Promus stent modesto t was just placed. The wire was then advanced through the stent at the origin o f the second OM branch, again with ease. This wire was advanced out into the di stal portion of the second OM branch. Then, a new 2 mm Emerge balloon was selec roma and advanced back into the origin of the second OM branch where high pressur e inflations were performed. As a last ditch attempt we again selected the 2.5 mm x 8 mm Promus stent and this time with significant difficulty the stent did e ventually advance through the side struts of the stent in the mid circumflex int o the second OM branch where it was deployed at maximum and then high pressure. Repeat angiography following that showed excellent angiographic results and no residual stenosis in the OM branch with brisk FARSHAD 3 flow and no dissection. Th ere appeared to be some slight plaque prolapse [...] of right femoral artery access site. WC/grb EKG findings Results for orders placed or performed during the hospital encounter of 01/29/19 EKG 12-LEAD Narrative Stationary ECG Study [address] [address] Test Date: 01/31/2019 11:01 AM Pat Name: OLIVERIO DALTON Department: 30 Room: [facility] Gender: Male Flow Coordinator: [id number] : 1950 Requested By: Order Number: [id number] Reading MD: Juan Manuel Richey MD Severity: Abnormal ECG Measurements Intervals [place] Rate: 66 P: 32 DC: 212 QRS: -35 QRSD: 84 T: 80 QT: 420 QTc: 440 Interpretive Statements Sinus rhythm with 1st degree AV block Left axis deviation Low voltage QRS Nonspecific T wave abnormality Abnormal ECG Electronically Signed On 01-31-2019 23:15:11 EDT by Juan Manuel Richey MD HAS-BLED High Risk 3 Total Score 1 Hypertension Hx 1 Age 1 Labile PT Hx [id number] Moderate-High Risk 4 Total Score 1 Hypertension Hx 1 Vascular Disease Hx 1 Diabetes Hx 1 Age Lab Review Lab Results Component Value Date/Time WBC 6.7 [...] HEMOGLOBIN A1C 6.1 (H) 01/30/2019 01:10 AM Lab Results Component Value Date/Time BRAIN NATRIURETIC PEPTIDE 169 (H) 09/02/2012 03:25 PM Assessment: Oliverio was seen today for follow up. Diagnoses and all orders for this visit: Essential hypertension Coronary artery disease involving hopland coronary artery of hopland heart with an ari pectoris Hyperlipidemia with target LDL less than 70 Tobacco dependence Overweight (BMI 25.0-29.9) Hospital discharge follow-up Plan: It was a pleasure providing your medical services today and we trust that your e xpectations were met. Our goal is to achieve excellent rankings as we appreciate you, the patient. 1. HTN --continue Altace 2. CAD ---continue bASA, Clopidogrel --maintain an active lifestyle 3. Hyperlipidemia --continue Simvastatin, fenofibrate, Zetia ---maintain a heart healthy diet low fat/ low salt 4. Tobacco Abuse ---I recommend that you stop smoking for your overall health Follow up with Cardiology in March with Dr Oconnor as already scheduled Please assist patient and sister with changing his appointment for his Echo. TOBACCO COUNSELING He was counseled to discontinue tobacco use. Normal BMI Range: 18 & older: > or = 18.5 and < 25 Body mass index is 26.95 kg/m. Abnormal high BMI: Patient counseled on lifestyle modifications including weight loss and daily exercise. Return in about 1 month (around 03/24/2019), or if symptoms worsen or fail to imp rove. Kendall Mace APRN 02/24/2019 documented in this encounter Miscellaneous Notes * Patient Instructions - Kendall Mace APRN - 02/24/2019 11:08 AM CDT It was a pleasure providing your medical services today and we trust that your e xpectations were met. Our goal is to achieve excellent rankings as we appreciate you, the patient. 1. No change in medication today 2. Maintain a heart healthy diet low fat / low salt 3. Maintain activity as tolerated 4. I recommend that you stop smoking for your overall healthy 5. Follow up with Cardiology in March with Dr Oconnor as already scheduled 6. Please assist patient and sister with changing his appointment for his Echo. documented in this encounter Plan of Treatment Not on filedocumented as of this encounter Visit Diagnoses Diagnosis Essential hypertension - Primary Unspecified essential hypertension Coronary artery disease involving nativ e coronary artery of hopland heart with angina pectoris Hyperlipidemia with target LDL less modesto n 70 Other and unspecified hyperlipidemia Tobacco dependence Tobacco use disorder Overweight (BMI 25.0-29.9) Overweight Hospital discharge follow-up Other follow-up examination documented in this encounter
--- OUTSIDE RECORDS SUMMARY | 2020-03-24 13:36 | XMS REPORT | Encounter Summary ---
Author Author [facility], [place], [place], [place], [facility] Organization [facility], [place], [place], [facility] Address Unknown Phone Unavailable Care Team Providers Care Fryer Operator Name Role Phone Claus Couch MD PCP Reason for Visit * Reason Comments TRANSITION CARE MANAGEMENT Encounter Details Care Team Description Date Type Department Anais Delatorre RN TRANSITION CARE MANAGEMENT 02/03/2019 Patient [facility] re Outreach Management [address] [address] Social History Date Tobacco Use Types Packs/Day [...] history available. documented as of this encounter Progress Notes * Anais Delatorre RN - 02/03/2019 11:08 AM CDT Transition of Care Management: OUTBOUND CALL Name: Oliverio Dalton : 1950 DISCHARGE DATE:02/01/19 READMISSION RISK SCORE: HIGH READMISSION RISK 10 Total Score 3 COPD 4 Hip Fracture 3 Coronary Artery Disease REASON FOR THE ADMISSION: Chest Pain FACILITY TYPE: Inpatient FACILITY NAME: [facility] PCP: Claus Couch MD Performed by: Anais Delatorre RN on 02/03/2019. Spoke with: patient. CURRENT SYMPTOMS AND STATUS 1. Is patient feeling as well as they expected to feel at this point? yes 2. What problems has patient had since coming home? None 3. The following symptoms to report were discussed with patient: Chest pain, SO B, N/V/D, neck pain, jaw pain, shoulder pain, rapid/irregular heart beat, return of or worsening of the symptoms that brought you to the hospital. REVIEW DISCHARGE AND FOLLOW-UP PLAN 1. Follow-Up Appointment Scheduled: Yes FOR: February 06, PROVIDER: Dr. Couch . Appointment within 7 days Appointment within 7 days after discharge: Yes. . 2. Is there anything that will keep the patient from making it to this appointm ent? No 3. Was the patient set up with any home health, medical equipment, or other ser vices upon discharge? no Services patient is supposed to receive: Patient has home care serv ices through [facility]. @02/12 caregivers. What agency is delivering these services? [facility]. 4. Identify any tests patient feels have been recommended, but not yet completed : Not Applicable. 5. Did the patient decide to quit smoking in the hospital no. Does the patient h ave cessation resources yes SUPPORT/CAREGIVER ASSESSMENT 1. Patient's current living arrangement: lives alone. Has 31/05 caregiver servic es. 2. Who is currently acting as patient's caregiver since discharge? Self, caregi vers. 3. Is there anything patient is having difficulty with in terms of taking care of basic needs at home (ADL's)? Yes Caregivers assist as needed. . FALL RISK He has had no falls in the past year. Stressed importance of fall prevention and safety. Provided education FOOD INSECURITY SCREENING 1. Within the past 12 months have you worried whether your food would run out or did it run out before you were able to afford to buy more? No MEDICATION RECONCILIATION A. Reconcile medications patient is actually taking against the EMR List: Current and discharge medications reviewed and reconciled: Yes 1. Does the patient have a current updated list? yes 2. Was patient told to stop any existing medications or start any new ones? Ye s Medications reviewed with patient. Patient verbalized understanding of all dis charge medications and dosages. 3. Patient has access to the updated/new medications? yes 4. Patient/caregiver understands medication changes that were made during hospi talization or ED Visit? yes 5. Patient/caregiver understands medication purpose(s) and dosing? yes 6. Do discrepancies exist? No B. Overall Medication Adherence: The patient reports adherence to this regimen Requested patient/caregiver to bring actual medicine bottles for all medicines t patiy are taking to the follow up appointment. Educated patient on how to reach th eir provider or access appropriate medical assistance after hours or if office i s closed. Informed of Nurse configuration management administrator service and how to access. Do you have an email address? Yes In [facility] Would you like for me to email or mail you some information about your condition ? no EMMIs sent: no Materials sent via postal mail:No At this time, do you have any emotional or spiritual concerns? No Ambulatory Pastoral Care (REF [id number]) referral made:no Staff: The following issues/concerns will be escalated to the primary care provider: n one Referrals made secondary to concerns: none How much time did it take to make this call: 42 minutes, including call prep, ch art review, documentation, interventions, and follow up. documented in this encounter Plan of Treatment Not on filedocumented as of this encounter Visit Diagnoses Not on filedocumented in this encounter
--- OUTSIDE RECORDS SUMMARY | 2020-03-24 13:36 | XMS REPORT | Encounter Summary ---
Author Author [facility], [place], [place], [place], [facility] Organization [facility], [place], [place], [facility] Address Unknown Phone Unavailable Care Team Providers Care Steel Tier Name Role Phone Claus Couch MD PCP Reason for Referral * Outpatient Services (Routine) Referred By Contact Referred To Contact Status Reason Specialty Diagnoses / Procedures Walter Oconnor MD [address] [place] [address] [address] [place] [address] [facility] Cardiology [address] [address] Closed [facility] CTS to Radiology Diagnoses Schedule Essential hypertension 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 P rocedures ECHO COMPLETE Reason for Visit * Outpatient Services (Routine) Referred By Contact Referred To Contact Status Reason Specialty Diagnoses / Procedures Walter Oconnor MD [address] [place] [address] [address] [place] [address] [facility] Cardiology [address] [address] Closed [facility] CTS to Radiology Diagnoses Schedule Essential hypertension 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 P rocedures ECHO COMPLETE Encounter Details Care Team Description Date Type Department Walter Oconnor MD [address] [place] [address] [address] [place] [address] 03/27/2019 [facility] Cardiology Ga dical Encounter Building [place] Boateng [id number] Social History Date Tobacco Use Types Packs/Day [...] 11:20 AM CDT 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 Left ventricular hypertrophy with diastolic dys function. CADIOLOGY 2. Preserved LV systolic function wi overall ejection fraction estimated to be 60%. A small focal ar ea of apical wall hypokinesis cannot be excluded. 3. Mild mitral regurgitation with le ft atrial enlargement. 4. Aortic valve sclerosis with mild aortic insufficiency. There is no significant aortic stenosis. 5. Trivial to mild pulmonic insuffic iency. WC/grb - Transcribed in Epic - Narrative Performed At [facility] SIDDHARTH ECHOCARDIOGRAM REPORT: CADIOLOGY DATE OF ECHO: 03/27/19. [...] Performing Organization Address City/State/Zipcode Ph one Number [facility] [place] [facility] # [id number] [place] Chao [id number] CADIOLOGY 100 [facility] documented in this encounter Visit Diagnoses Diagnosis Essential hypertension Unspecified essential hypertension Coronary artery disease involving nativ e coronary artery of aniak heart with angina pectoris documented in this encounter
--- OUTSIDE RECORDS SUMMARY | 2020-03-24 13:37 | XMS REPORT | Encounter Summary ---
Author Author [facility], [place], [place], [facility] Organization [facility], [place], [place], [facility] Address Unknown Phone Unavailable Care Team Providers Care Sculpture Instructor Name Role Phone Claus Couch MD PCP Reason for Visit * Reason Comments Wound Check see note Encounter Details Care Team Description Date Type Department Blayne Foss MD 100 [facility] [address] [place] [address] Wound Check (see note) 07/19/2018 Telephone [facility] Team H [facility] Orthopedics 100 [facility] [address] [place] [address] Social History Date Tobacco Use Types Packs/Day Years Used Never Assessed Sex Assigned at Date Recorded Not on file Industry Job Start Date Occupation Not on file Not on file Not on file Travel End Travel History Travel Start No recent travel history available. documented as of this encounter Miscellaneous Notes * Telephone Encounter - Sandi oL - 07/19/2018 1:35 PM CDT PRIYA Baldwin w/HH called. Advised OT relayed msg to her that pt told her "his wound was draining so much that it wet the bed so he removed the Silverlon dressing b ut kept the brendon bandage on the wound site. Nicolasa is going to check the wound. PRIYA Baldwin returned call 07-19-18 stating the wound does not have excessive draina ge, appears to be healing well, no signs of infection present upon exam. Nicolasa re-dressed wound with silver foam covered in tegaderm as her facility does not s tock Silverlon. documented in this encounter Plan of Treatment Not on filedocumented as of this encounter Visit Diagnoses Not on filedocumented in this encounter
--- OUTSIDE RECORDS SUMMARY | 2020-03-24 13:37 | XMS REPORT | Encounter Summary ---
Author Author [facility] [place], [place], [place], [facility] Organization [facility] [place], [place], [place], [facility] Address Unknown Phone Unavailable Care Team Providers Care Wad Compressor Operator Adjuster Name Role Phone Claus Couch MD PCP Encounter Details Care Team Description Date Type Department Blayne Foss MD 100 [facility] [address] [place] [address] 07/20/2018 Orders Only [facility] Team H [facility] Orthopedics 100 [facility] [address] [place] [address] Social History Date Tobacco Use Types Packs/Day Years Used Never Assessed Sex Assigned at Date Recorded Not on file Industry Job Start Date Occupation Not on file Not on file Not on file Travel End Travel History Travel Start No recent travel history available. documented as of this encounter Plan of Treatment Not on filedocumented as of this encounter Visit Diagnoses Not on filedocumented in this encounter
--- OUTSIDE RECORDS SUMMARY | 2020-03-24 13:37 | XMS REPORT | Encounter Summary ---
Author [facility] [place], [place], [facility] Organization [facility] [place], [place], [place], [facility] Address Unknown Phone Unavailable Care Team Providers Care Community Director Name Role Phone Claus Couch MD PCP Reason for Visit * Reason Comments Fracture Follow Up Encounter Details Care Team Description Date Type Department Closed subcapital fracture o f femur, right, with routine healing, subsequent encounter (Primary Dx) 08/17/2018 Office Visit [facility] Team H [facility] Orthopedics [address] [address] Social History Date Tobacco Use Types [...] Signs Reading Time Taken Comments Vital Sign 137/77 08/17/2018 8:15 AM CDT Blood Pressure 79 08/17/2018 8:15 AM CDT Pulse 36.1 C (97 F) 08/17/2018 8:15 AM CDT Temperature - - Respiratory Rate - - Oxygen Saturation - - Inhaled Oxygen Concentration 59 kg (130 lb) 08/17/2018 8:15 AM CDT Weight 167.6 cm (5' 6") 08/17/2018 8:15 AM CDT Height 20.98 08/17/2018 8:15 AM CDT Body Mass Index documented in this encounter Progress Notes * Con Torres MD - 08/17/2018 8:17 AM CDT CLINIC FOLLOW UP PATIENT: Oliverio Dalton AGE: 67 y.o. : 1950 CSN: [id number] PCP: Claus Couch MD Subjective Subjective: No chief complaint on file. History of Present Illness: Oliverio is a 67 y.o. male who presents to the clin ic today for follow up of 6wk PO right subcap femur fx s/p CRPP. His pain level is a 4/10 today but says it goes up to a 10/10 frequently. Objective Objective: General appearance: alert, no distress Head: Normocephalic, without obvious abnormality, atraumatic Eyes: conjunctivae/corneas clear. Lungs: Normal respiratory effort Skin: Skin color, texture, turgor normal. No rashes or lesions Neurologic: Grossly normal Musculoskeletal: This patient is now 6 weeks status post right hip repair with 3 cannulated screws for a subcapital hip fracture. He has no pain he is feeling significantly better he is ambulating with the aid of physical therapy he is at home he lives by himself he is in a wheelchair today. On exam he is in acceptable range of motion his wound is well-healed he has no c fci swelling leg lengths are equal. Neurovascular exam is intact. Xr Hip 2 Or 3 Views Rt Result Date: 08/17/2018 AP x-rays of the pelvis and the lateral of the right hip show 3 cannulated screw s holding his subcapital fracture in acceptable position. Patient also has a tr ochanteric femoral nail from last year in his left hip which is also good positi on. Assessment Assessment and Plan Encounter Diagnoses Code Name Primary? S72.011D Closed subcapital fracture of femur, right, with routine healing, s ubsequent encounter Yes No orders of the defined types were placed in this encounter. Healing right subcapital hip fracture with 3 cannulated screws doing fairly well . Follow him up on as-needed basis he can weight-bear as tolerated. Return if symptoms worsen or fail to improve. Con Torres MD 08/17/2018 documented in this encounter Plan of Treatment Not on filedocumented as of this encounter Visit Diagnoses Diagnosis Closed subcapital fracture of femur, ri ght, with routine healing, subsequent encounter - Primary documented in this encounter
--- OUTSIDE RECORDS SUMMARY | 2020-03-24 13:37 | XMS REPORT | Encounter Summary ---
Author Author [facility], [place], [place], [facility] Organization [facility], [place], [place], [facility] Address Unknown Phone Unavailable Care Team Providers Care Mail Deliverer Name Role Phone Claus Couch MD PCP Reason for Visit * Reason Comments TRANSITION CARE MANAGEMENT Encounter Details Care Team Description Date Type Department Jeri Loco, HIRED HAND CARE MANAGEMENT 07/12/2018 Patient [facility] re Outreach Management [address] [address] Social History Date Tobacco Use Types Packs/Day Years Used Never Assessed Sex Assigned at Date Recorded Not on file Industry Job Start Date Occupation Not on file Not on file Not on file Travel End Travel History Travel Start No recent travel history available. documented as of this encounter Progress Notes * Jeri Loco, RN - 07/13/2018 1:25 PM CDT Transition of Care Management: OUTBOUND CALL Name: Oliverio Dalton : 1950 DISCHARGE DATE:07/09/18 READMISSION RISK SCORE: 10 HIGH READMISSION RISK 10 Total Score 3 COPD 4 Hip Fracture 3 Coronary Artery Disease REASON FOR THE ADMISSION: Closed Fracture of Head of R Femur FACILITY TYPE: Inpatient FACILITY NAME: [facility] PCP: Claus Couch MD Performed by: Nicolasa Loco RN on 07/13/2018. Spoke with: Caregiver from [address] CURRENT SYMPTOMS AND STATUS 1. Is patient feeling as well as they expected to feel at this point? no is st ill having a lot of pain - has gone through all his pain meds 2. What problems has patient had since coming home? Continues to have pain in R hip and caregiver reports that he has taken his last pain pill - discussed that they would need to contact Dr. Couch about a refill on pain meds 3. The following symptoms to report were discussed with patient: Changes in col or and temperature of R leg, redness, swelling or drainage from incision site, e levated temp of > 100.5 REVIEW DISCHARGE AND FOLLOW-UP PLAN 1. Follow-Up Appointment Scheduled: No Pt prefers to self schedule. Orthopedic F/U with Dr. Verduzco on 07/20 2. Is there anything that will keep the patient from making it to this appointm ent? Not applicable 3. Was the patient set up with any home health, medical equipment, or other ser vices upon discharge? yes Services patient is supposed to receive: long term. PT/OT What agency is delivering these services? [facility] 4. Identify any tests patient feels have been recommended, but not yet completed : None at this time. 5. Did the patient decide to quit smoking in the hospital no. Does the patient h ave cessation resources no no desire to quit SUPPORT/CAREGIVER ASSESSMENT 1. Patient's current living arrangement: lives alone with 24 hr caregivers 2. Who is currently acting as patient's caregiver since discharge? [facility] 3. Is there anything patient is having difficulty with in terms of taking care of basic needs at home (ADL's)? Yes requires assistance with bathing and dressin g. FALL RISK He has had a fall with injury in the past year. Stressed importance of fall prevention and safety. Provided education - uses whe elchair most of the time and does have a wheeled walker FOOD INSECURITY SCREENING 1. Within the past 12 months have you worried whether your food would run out or did it run out before you were able to afford to buy more? No MEDICATION RECONCILIATION A. Reconcile medications patient is actually taking against the EMR List: Current and discharge medications reviewed and reconciled: No: meds come in a pa ck from the pharmacy divided into morning, noon, supper, and bedtime - Meds have been reconciled by [facility] Nurse on admission 07/11/18. 1. Does the patient have a current updated list? yes 2. Was patient told to stop any existing medications or start any new ones? Ye s Oxycodone 7.5 mg and stop Ambien and Oxycodone 5 mg, and cont all other meds a s before 3. Patient has access to the updated/new medications? yes 4. Patient/caregiver understands medication changes that were made during hospi talization or ED Visit? yes 5. Patient/caregiver understands medication purpose(s) and dosing? yes 6. Do discrepancies exist? No B. Overall Medication Adherence: The patient/caregiver reports adherence to thi s regimen Requested patient/caregiver to bring actual medicine bottles for all medicines t hey are taking to the follow up appointment. Educated patient on how to reach th eir provider or access appropriate medical assistance after hours or if office i s closed. Informed of Nurse fashion consultant sales service and how to access. Do you have an email address? No Would you like for me to email or mail you some information about your condition ? no EMMIs sent: no Materials sent via postal mail:No At this time, do you have any emotional or spiritual concerns? No Ambulatory Pastoral Care (REF [id number]) referral made:no Staff: The following issues/concerns will be escalated to the primary care provider: Dylan esparza has used his 12 tabs of Oxycodone from his discharge and is requesting mo re - informed caregiver that they would need to contact PCP Referrals made secondary to concerns: none How much time did it take to make this call: 40 minutes, including call prep, ch art review, documentation, interventions, and follow up. MARC Dukes RN Technician Assistant II documented in this encounter Plan of Treatment Not on filedocumented as of this encounter Visit Diagnoses Not on filedocumented in this encounter
--- OUTSIDE RECORDS SUMMARY | 2020-03-24 13:37 | XMS REPORT | Encounter Summary ---
Author Author [facility], [place], [address] [address], [place], [facility] Organization [facility] [place], [address], [place], [facility] Address Unknown Phone Unavailable Care Team Providers Care Saddle And Harness Maker Name Role Phone Claus Couch MD PCP Encounter Details Care Team Description Date Type Department Zachary Verduzco, 100 [facility] Jerzy [address] [place] [address] 07/12/2018 Orders Only [facility] Team H [facility] Orthopedics 100 [facility] [address] [place] [address] Social History Date Tobacco Use [...]
--- OUTSIDE RECORDS SUMMARY | 2020-03-24 13:37 | XMS REPORT | Encounter Summary ---
Author Author [facility], [place], [place], [place], [place] Organization [facility], [place], [place], [place], [place] Address Unknown Phone Unavailable Care Team Providers Care Payroll And Benefits Analyst Name Role Phone Claus Couch MD PCP Encounter Details Care Team Description Date Type Department Blayne Foss MD 100 [facility] [address] [place] [address] Closed subcapital fracture of femur, rig ht, initial encounter 07/20/2018 [facility] Procedure Orthopedics [place] 100 [facility] [address] [place] [address] Social History Date Tobacco Use [...] Procedure Name Priority Date/Time Associated Diag nosis XR HIP 2 OR 3 VIEWS RT Routine 07/20/2018 Closed subcapital 12:08 PM CDT fracture of femur, right, initial encounter documented in this encounter Results * XR HIP 2 OR 3 VIEWS RT (07/20/2018 12:08 PM CDT) Specimen Narrative Performed At This result has an attachment that is n ot available. Xrays 2 views right hip today shows the right femoral neck fracture is healing well in good alignment s/p scre w fixation documented in this encounter Visit Diagnoses Diagnosis Closed subcapital fracture of femur, ri ght, initial encounter documented in this encounter
--- OUTSIDE RECORDS SUMMARY | 2020-03-24 13:37 | XMS REPORT | Encounter Summary ---
Author Author [facility], [place], [place], [place], [facility] Organization [facility] [place], [place], [place], [facility] Address Unknown Phone Unavailable Care Team Providers Care Safety Inspector Name Role Phone Claus Couch MD PCP Encounter Details Care Team Description Date Type Department Blayne Foss MD 100 [facility] [address] [place] [address] Closed subcapital fracture of femur, rig ht, initial encounter (Primary Dx) 07/19/2018 Orders Only [facility] Team H [facility] Orthopedics 100 [facility] [address] [place] [address] Social History Date Tobacco Use Types Packs/Day Years Used Never Assessed Sex Assigned at Date Recorded Not on file Industry Job Start Date Occupation Not on file Not on file Not on file Travel End Travel History Travel Start No recent travel history available. documented as of this encounter Plan of Treatment Not on filedocumented as of this encounter Results * XR HIP 2 [...] fracture of femur, ri ght, initial encounter - Primary documented in this encounter
--- OUTSIDE RECORDS SUMMARY | 2020-03-24 13:37 | XMS REPORT | Encounter Summary ---
Author Author [facility], [place], [place], [facility] Organization [facility] Zhanna Anderson, [place], [facility] Address Unknown Phone Unavailable Care Team Providers Care Crossword Puzzle Maker Name Role Phone Claus Couch MD PCP Reason for Visit * Reason Comments Post-op Visit po 2 wk R subcap femur fx s /p CRPP Encounter Details Care Team Description Date Type Department Pain of right hip joint (Farhana sigrid Dx) 07/20/2018 Office Visit [facility] [place] Team H [facility] Orthopedics [address] [address] Social History Date Tobacco Use [...] Signs Reading Time Taken Comments Vital Sign 132/76 07/20/2018 11:56 AM CDT Blood Pressure 72 07/20/2018 11:56 AM CDT Pulse 35.9 C (96.7 F) 07/20/2018 11:56 AM CDT Temperature - - Respiratory Rate - - Oxygen Saturation - - Inhaled Oxygen Concentration 59 kg (130 lb) 07/20/2018 11:56 AM CDT Weight 167.6 cm (5' 6") 07/20/2018 11:56 AM CDT Height 20.98 07/20/2018 11:56 AM CDT Body Mass Index documented in this encounter Progress Notes * Blayne Foss MD - 07/20/2018 12:18 PM CDT Subjective: The patient is 67 y.o. and is now 2 weeks post right CRPP hip. Pain is controlle d with current analgesics. Medication(s) being used: narcotic analgesics includ ing percocet. The patient denies fever, wound drainage, increasing redness, pus , increasing pain, increasing swelling. Post op problems reported: none He is a mbulating WBAT. Objective: General : alert, in no distress Gait: Antalgic. Sutures: Sutures out. Incision: healing well, no significant drainage, no dehiscence, no significant erythema Tenderness: none Flexion ROM: full range with pain Extension ROM: full range with pain Abduction ROM: full range with pain DVT Evaluation: No evidence of DVT seen on physical exam. Imaging Xrays 2 views right hip today shows the right femoral neck fracture is healing w ell in good alignment s/p screw fixation Assessment: Status post right hip screw fixation. Doing well postoperatively. Plan: Full weight bearing. Follow up: 4 weeks with xrays. documented in this encounter Plan of Treatment Not on filedocumented as of this encounter Visit Diagnoses Diagnosis Pain of right hip joint - Primary documented in this encounter
--- OUTSIDE RECORDS SUMMARY | 2020-03-24 13:37 | XMS REPORT | Encounter Summary ---
Author Author [facility], [place], [place], [place], [facility] Organization [facility] [place], [place], [place], [facility] Address Unknown Phone Unavailable Care Team Providers Care Tourist Agent Name Role Phone Claus Couch MD PCP Reason for Visit * Reason Comments TRANSITION CARE NOC TCM APT MANAGEMENT Encounter Details Care Team Description Date Type Department Nuris Markham 01/30/2019 Nurse Triage [facility] Nurse alterations tailor [address] [address] Social History Date Tobacco Use Types Packs/Day [...] encounter Miscellaneous Notes * Telephone Encounter - Nuris Markham - 01/30/2019 1:24 PM CDT Reason for Disposition Documentation only? Protocols used: RUPAL NOC P ANSWERING SERVICE documented in this encounter Plan of Treatment Not on filedocumented as of this encounter Visit Diagnoses Not on filedocumented in this encounter
--- OUTSIDE RECORDS SUMMARY | 2020-03-24 13:37 | XMS REPORT | Encounter Summary ---
Author Author [facility] [place], [place], [facility] Organization [facility] [place], [place], [place] Cruz, [facility] Address Unknown Phone Unavailable Care Team Providers Care Gun Barrel Finisher Name Role Phone Claus Couch MD PCP Encounter Details Care Team Description Date Type Department Con Torres MD [address] [facility] [address] [place] [address] Closed subcapital fracture of femur, rig ht, with routine healing, subsequent encounter 08/17/2018 Ancillary [facility] Imagin g Procedure Orthopedics [place] [address] [facility] [address] [place] [address] Social History Date Tobacco Use [...] HIP 2 OR 3 VIEWS RT Routine 08/17/2018 Closed subcapital 8:24 AM CDT fracture of femur, right, with routine healing, subsequent encounter documented in this encounter Results * XR HIP 2 OR 3 VIEWS RT (08/17/2018 8:24 AM CDT) Specimen Narrative Performed At [facility] x-rays of the pelvis and the lateral of the right hip show 3 cannulated CLINIC screws holding his subcapital fracture in acceptable position. Patient also has a trochanteric femoral nail fr om last year in his left hip which is also good position. Performing Organization Address City/State/Zipcode Ph one Number [facility] documented in this encounter Visit Diagnoses Diagnosis Closed subcapital fracture of femur, ri ght, with routine healing, subsequent encounter documented in this encounter
--- OUTSIDE RECORDS SUMMARY | 2020-03-24 13:37 | XMS REPORT | Encounter Summary ---
Author Author [facility] [place], [place], [place], [facility] Organization [facility], [place], [facility] Address Unknown Phone Unavailable Care Team Providers Care Dish Washer Name Role Phone Claus Couch MD PCP Encounter Details Care Team Description Date Type Department N/A 01/29/2019 [facility] [address] [place] [address] Social History Date Tobacco Use Types Packs/Day [...]
--- OUTSIDE RECORDS SUMMARY | 2020-03-24 13:37 | XMS REPORT | Encounter Summary ---
Author Author [facility], [place], [place], [facility] Organization [facility], [place], [place], [facility] Address Unknown Phone Unavailable Care Team Providers Care Sales And Distribution Clerk Name Role Phone Claus Couch MD PCP Encounter Details Care Team Description Date Type Department Con Torres MD [address] [facility] [address] [place] [address] Closed subcapital fracture of femur, rig ht, with routine healing, subsequent encounter (Primary Dx) 08/16/2018 Orders Only [facility] Orthop edics [place] [address] [facility] [address] [place] [address] Social History Date Tobacco Use [...]
--- OUTSIDE RECORDS SUMMARY | 2020-03-24 13:38 | XMS REPORT | Encounter Summary ---
Author Author [facility] Organization [facility] [place], Jose Cruz, [facility] Address Unknown Phone Unavailable Care Team Providers Care Intertype Operator Name Role Phone Claus Couch MD PCP Reason for Visit * Reason Comments Fall Hip Pain * Auth/Cert Referred By Contact Referred To Contact Status Reason Specialty Diagnoses / Procedures [facility] 3 Medical Surgical [address] [place] [address] Multi Specialty Diagnoses Femur fracture, right Femur fracture, right [S72.91XA] P rocedures FEMUR INTRAMEDULLARY NAILING Encounter Details Care Team Description Date Type Department Kentrell Go, [address] [place] [address] Adam Busch, DO [address] [place] [address] Bahman Davis (Do Not UseMD Kaz NO ADDRESS ON FILE Venu Silva MD [address] [place] [address] Ariana Galaviz MD [address] [place] [address] Closed fracture of head of right femur 07/04/2018 [facility] in 3rd - Encounter Floor Medical Surgi donvoan 07/09/2018 [address] [address] Social History Date Tobacco Use Types Packs/Day [...] Signs Reading Time Taken Comments Vital Sign 132/60 07/09/2018 1:01 PM CDT Blood Pressure 70 07/09/2018 1:01 PM CDT Pulse 37.1 C (98.7 F) 07/09/2018 1:01 PM CDT Temperature 20 07/09/2018 1:01 PM CDT Respiratory Rate 98% 07/09/2018 1:01 PM CDT Oxygen Saturation - - Inhaled Oxygen Concentration 94 kg (207 lb 4.8 oz) 07/09/2018 3:00 AM CDT Weight 167.6 cm (5' 6") 07/04/2018 8:07 PM CDT Height 33.46 07/04/2018 8:07 PM CDT Body Mass Index documented in this encounter Discharge Summaries * Ariana Galaviz MD - 07/09/2018 3:10 PM CDT Hospitalist Discharge Summary PATIENT: Oliverio Dalton AGE: 67 y.o. CSN: [id number] SEX: male Date of : 1950 Admit date: 07/04/2018 Reason for Hospitalization: Right femoral neck fracture s/p fall Discharge date: 07/09/2018 Discharge Dx Principal Problem: Closed fracture of head of right femur Active Problems: Coronary artery disease involving [place] coronary artery of [place] heart with angina pectoris COPD (chronic obstructive pulmonary disease) Hypertension Hyperlipidemia with target LDL less than 70 Tobacco dependence Diabetes Elevated troponin Epilepsy Significant procedures performed: none Xr Hip 2 Or 3 Views Rt Result Date: 07/05/2018 EXAMINATION: XR HIP 2 OR 3 VIEWS RT HISTORY: Male, 67 years old. Closed right hi p fracture; Elevated troponin Post OP Hip COMPARISON: Right hip radiographs 06/09 0911 hours FINDINGS: AP and crosstable lateral views of the right hip are performed. Postoperative changes of right subcapital femoral neck fracture perc utaneous pinning noted. Alignment is near-anatomic. Partially visualized is nail ed left proximal femoral fracture. Penile prosthesis noted. IMPRESSION: Postoperative changes of percutaneous pinning for right subcapital f emoral neck fracture. Xr Hip 2 Or 3 Views Rt Result Date: 07/05/2018 EXAMINATION: XR HIP 2 OR 3 VIEWS RT HISTORY: Male, 67 years old. Closed right hi p fracture; Elevated troponin Fracture COMPARISON: Right hip radiographs 018 0911 hours FINDINGS: Two intraoperative fluoroscopic views of the right hip are performed. There is ongoing percutaneous screw placement for a right subcapi henrik femoral neck fracture. Penile prosthesis is noted obscuring the femoral neck on one view. IMPRESSION: Intraoperative fluoroscopic images demonstrating percutaneous screw placement for right subcapital femoral neck fracture. Xr Hip 2 Or 3 Views Rt Result Date: 07/05/2018 AP pelvis and lateral radiographs of the right hip 07/05/2018 9:26 AM HISTORY: 67 years Male presents with closed hip fracture COMPARISON: Radiographs and CT one day previous. FINDINGS: The crosstable lateral is underpenetrated. The nondisp laced subcapital right femoral head fracture is not delineated on these radiogra phs. The pelvis is intact. There is no dislocation. Partial visualization of le ft hip hardware with healed left femoral neck fracture. IMPRESSION: Subcapital right femoral neck fractures not delineated on today's im aging Xr Fluoro Greater Than 1 Hour Result Date: 07/05/2018 Order information only. Exam was auto-finalized. Labs: CBC: Recent Labs 07/07/18 0400 07/08/18 0407 WBC 8.1 8.2 HGB 8.4* 8.6* HCT 25.7* 26.1* PLT 344 391 MCV 83.2 82.6 BMP: Recent Labs 07/07/18 0400 NA 136 K 4.1 CL 98 CO2 26 ANIONGAP 12 CA 8.6* GLUCOSE 162* BUN 10 CREAT 0.56* AccuCheks: Recent Labs 07/08/18 0734 07/08/18 1156 07/08/18 2101 07/09/18 0826 GLUCPOC 182* 164* 163* 172* Consults: orthopedic surgery Hospital Course: Oliverio Dalton is a 67 y.o., male who presented with right hip pain status post fall. Patient denied any other complains before and after the f all. Patients take Benzo and also sleep medications as home. Orthopedic was cons ulted and he underwent percutaneous pinning of the right nondisplaced femoral ne ck fracture. Patient did well status post surgery. PT was consulted and in pat ient rehab was recommended but patient insurance refused to approve inpatient re hab. assisted facility was then planned which was discussed with patient and his sister and both of them refused for patient to go to SNF. Patient pain is currently controlled with pain medication. I also discussed with patient an d sister to see if there would look into short term rehab since inpatient rehab was not an option but again patient insisted out would rather go home instead. Patient and sister stated that they have all the equipment that he needs at home and that patient has a 24 hours caregiver who patient pays. DVT prophylaxis discussed with orthopedic and stated that Plavix 75 mg daily gary l be enough for prophylaxis. Patient discharged in improved condition. Disposition: home Activity: as tolerated Diet: heart healthy Medication List START taking these medications oxyCODONE-acetaminophen 7.5-325 mg Tablet Commonly known as: PERCOCET Take 1 Tablet by mouth every 4 hours as needed for Pain, Moderate. Max Daily Darrick unt: 6 Tablets Signed by: Ariana Galaviz MD Quantity: 12 Tablet Refills: 0 Replaces: oxyCODONE-acetaminophen 5-325 mg tablet CONTINUE taking these medications albuterol sulfate 90 [...] hours. Refills: 0 magnesium oxide 250 mg Tablet Take 250 mg by mouth 3 [...] by mouth daily at bedtime. Refills: 0 phenytoin 200 mg Capsule Commonly [...] by mouth daily at bedtime. Refills: 0 STOP taking these medications AMBIEN 10 mg tablet Generic drug: zolpidem oxyCODONE-acetaminophen 5-325 mg tablet Commonly known as: PERCOCET Replaced by: oxyCODONE-acetaminophen 7.5-325 mg Tablet Where to Get Your Medications Information about where to get these medications is not yet available Ask your nurse or doctor about these medications oxyCODONE-acetaminophen 7.5-325 mg Tablet Discharge Condition: Improved Discharge review/exam- BP 132/60 (BP Location: Left arm, Patient Position (BP): Supine) | Pulse 70 | Temp 98.7 F (37.1 C) (Oral) | Resp 20 | Ht 5' 6" (1 .676 m) | Wt 94 kg (207 lb 4.8 oz) | SpO2 98% | BMI 33.46 kg/m General-NAD Lungs- CTABL Heart- NSR Follow up: with Claus Couch MD in 1 weeks Important notification concerning prescription medicine During your hospital stay, your care for by by physicians in the [facility] program. At the time of your discharge we will supply prescriptions for any m edications that are new or changed during your hospital stay. As Hospitalist our practice is restricted to patients in the hospital. As a result, we cannot refi ll medications after your discharge from the hospital. As a result, it is very i mportant that you contact your usual physician for any issues related to refill a medication or changing current medications. Also, at the time of discharge we will be giving you recommendations concerning followup care with your physician. Other patient instructions/education materials see separate discharge instructio n sheet. More than 30 minutes were spent in the care of this patient today; this may incl ude family conference, nursing conference and discussion with any consultants; o f this time significant time was also spent counseling the patient and/or family on the following: further management. The following statements must be viewed in reference to a hospital care situatio n and as presented on an electronic/paper medical record. Although I reviewed th e available and applicable records, I do not state that I reviewed all portions of every entry into the medical record. Signed: Ariana Galaviz MD 07/09/2018, 3:10 PM CC: documented in this encounter Discharge Instructions * Instructions* Ariana Galaviz MD - 07/08/2018 [facility] [place] tel- [phone] has been notified to follow up with Nurse assessment visits and home PT/OT visits. Take your medications as prescribed Follow up with PCP and orthopedic as scheduled * Attachments The following attachments cannot be sent through Care Everywhere.* Hip Fracture: Surgery: General Info (Honduran) * acetaminophen and oxycodone (Honduran) documented in this encounter Medications at Time of Discharge Start Date End Date Medication Sig Dispensed Refills 09/06/2017 belladonna Insert 1 10 0 alkaloids-opium [...] or Wheezing. documented as of this encounter Progress Notes * Viri Singh - 07/12/2018 11:12 AM CDT Unable to make PCP appointment within 7 days of discharge: Patient Prefers to s elf-schedule. I spoke to the pt regarding both his PCP appt with Dr. Iza alvarez f/u with Ortho from his hip surgery. He says he wants his sister to call fo r those appts because she'll be his transportation & need to make it convenient for her. * Nikky Tavares RN - 07/09/2018 5:25 PM CDT Discharge instructions/paperwork given to patient/sister. Sister is DPOA and si gned Important Message from Medicare paper and for discharge paperwork. Signed hard script for narcotic pain medication included with paperwork as well. All q uestions/concerns addressed during discharge instructions. Patient/sister deny any additional concerns at time of discharge. Patient left floor in wheelchair with belongings and paperwork with staff at 1720. Patient discharged home with home health and previous 24/7 care and left facility with sister via private veh icle. * Pamela Calero RN - 07/09/2018 4:13 PM CDT CM: [facility] [place] ([phone]) notified of discharge to home. Stacia Calero RN IP Care Management (ext:[phone]) * Frances Appiah RN - 07/08/2018 4:37 PM CDT [facility] CONSULT NOTE re [facility] orders entered for Skilled Nurse Visits and home PT/OT. Per [facility] choice done by Edson POWERSslot manager, I have processed the orders and info to [facility] [place], [place] to follow up at home. BUFFY POWERS [facility] liaison * Venu Silva MD - 07/08/2018 4:28 PM CDT Pt wanted to go to IP rehab and PT also advised it. Referral were send and his i nsurance denied it. Did peer to peer for approval for Inpatient rehab and spoke with Dr suárez, medical claims specialist from [facility]. Had discussion regarding his angie e and still has been denied by insurance. He will get approved for SNF but Pt an d family does not want to go to SNF. Wants to go home and had long discussion regarding this. SW/CM has been informed regarding outcome of peer to peer They are arranging Home health and possible discharge tomorrow if it has been ar ranged and family can take him. He has 24 hour support at home which he pays. * Alexandra Go RN - 07/08/2018 4:25 PM CDT [facility] liaison setting up [facility]. Notified Hellen, patient sister and she will be transport tomorrow home. Alexandra Go RN, BSN,CCM, Money [employer] [phone] (ext. [phone]) * Venu Silva MD - 07/08/2018 1:34 PM CDT Hospitalist Progress Note Subject: Feeling better. Pain over right hip has improved. Pain is more tolerabl e and able to move his hip better. Walked few feet today. No other complaints. N o other events as per Nursing staff. Physical Examination: Vitals: BP 124/58 | Pulse 76 | Temp 98.4 F (36.9 C) | Resp 18 | Ht 5' 6" (1.676 m) | Wt 66.3 kg (146 lb 3.2 oz) | SpO2 96% | BMI 23.60 kg/m General: In no acute distress Eyes: PERRLA, EOMI, no ictrus, no nystagmus HENT: NC/AT, mucous membrane moist, poor dentition Neck: supple, no JVD, no LAD, no mass Chest: moving bilateral and symmetrical CVS: normal S1 S2, no murmur Lung: coarse breath sound Abdomen: normal BS, non tender, soft, no HSM Neurologic: alert, oriented X3, no focal deficit, generalized weakness Extremities: Trace to 1+edema,clubbingpresent, no cyanosis Skin: no new rash Muscloskeletal: Right hip tenderness has improved, restricted ROM of hip LABS: Results for orders placed or performed during the hospital encounter of 07/04/18 (from the past 24 hour(s)) POC GLUCOSE Result Value Ref Range POC GLUCOSE 218 (H) 74 - 99 mg/dL MANAGER FITNESS NAME sara harris POC GLUCOSE Result Value Ref Range POC GLUCOSE 172 (H) 74 - 99 mg/dL MANAGER FITNESS NAME napoleon galvin CBC WITH DIFFERENTIAL Result Value Ref Range WBC 8.2 4.0 - 11.0 K/uL RBC 3.16 (L) 4.70 - 6.00 M/uL HEMOGLOBIN 8.6 (L) 13.5 - 18.0 g/dL HEMATOCRIT 26.1 (L) 42.0 - 52.0 % MCV 82.6 78.0 - 100.0 fL MCH 27.2 27.0 - 34.0 pg MCHC 33.0 31.0 - 37.0 g/dL RDW 14.3 12.0 - 15.0 % RDW-STDEV 42.4 37.1 - 48.7 fL PLATELETS 391 150 - 450 K/uL MPV 8.2 (L) 9.3 - 12.4 fL NEUTROPHILS 67 31 - 76 % LYMPHOCYTES 21 (L) 24 - 44 % MONOCYTES 10 2 - 11 % EOSINOPHILS 1 0 - 6 % BASOPHILS 0 0 - 2 % IMMATURE GRANULOCYTES 1 0 - 2 % NEUTROPHIL ABSOLUTE 5.51 1.80 - 7.70 K/uL LYMPHOCYTE ABSOLUTE 1.73 1.00 - 4.80 K/uL MONOCYTE ABSOLUTE 0.84 0.10 - 1.30 K/uL EOSINOPHIL ABSOLUTE 0.04 0.00 - 0.70 K/uL BASOPHILS ABSOLUTE 0.02 0.00 - 0.20 K/uL IMMATURE GRANULOCYTES ABSOLUTE 0.04 0.00 - 0.10 K/uL POC GLUCOSE Result Value Ref Range POC GLUCOSE 182 (H) 74 - 99 mg/dL MANAGER FITNESS NAME Flori Teresa POC GLUCOSE Result Value Ref Range POC GLUCOSE 164 (H) 74 - 99 mg/dL MANAGER FITNESS NAME Flori Teresa Telemetry: Personally reviewed. NSR Microbiology: Urine culture: no growth till date ASSESSMENT: Patient Active Problem List Diagnosis Code Chest pain, chronic R07.9 Coronary artery disease involving [place] coronary artery of [place] heart wit h angina pectoris I25.119 Peripheral arterial disease I73.9 Leg edema, left R60.0 Dyspnea, chronic R06.00 COPD (chronic obstructive pulmonary disease) J44.9 Hypertension I10 Hyperlipidemia with target LDL less than 70 E78.5 Depression F32.9 Acute blood loss anemia D62 Hematuria R31.9 Greater trochanter fracture S72.113A Gross hematuria R31.0 Hemorrhagic cystitis N30.91 Bursitis of right elbow M70.31 Tobacco dependence F17.200 Diabetes E11.9 Closed fracture of head of right femur S72.051A Elevated troponin R74.8 Epilepsy G40.909 Assessment and Plan: Closed fracture of head of right femur POA S/P ORIF PT/OT to continue as tolerated SW consulted for discharge planning. Referral send to inpatient rehab as per Pt' s choice If does not get approved for IP rehab then Pt and sister wants to go back home w [facility] home health. If does not get approval today then possible discharge tomorrow to home with home health Pain management with oral [facility] and IV morphine depending on pain level COPD Stable Oxygen supplement as needed Bronchodilator therapy as needed Supportive management CAD Stable Continue with medical management Hypertension Continue with present regime and monitor vitals closely Epilepsy Seizure precautions Continue with his home medications T2DM Resume his home medications Monitor blood sugar and cover with lispro as per sliding scale Nicotine dependence, active Smoking cessation counseling given. Nicotine patch if he agrees DVT and GI prophylaxis ordered. Rest of medical management will depend on clinical progression * Emmie Butler LCSW - 07/08/2018 11:19 AM CDT Spoke with patients sister Hellen to discuss discharge planning for today. Frances sarmiento asking about patient going to [facility]. Discussed patient s reluctance for placement. She states they are not willing to consider skilled care. Sister plans to speak with her brother. Patient has [employer] insurance and will need authorized. Met with patient in room to discuss referral to [facility]. Patient is ag reeable to sending a referral. He states if not accepted for rehab he will re turn home with [facility] for therapy and continue in home services. Referral sent to [facility]. Spoke with Cora. She will review and call back. Received message from Patti Peña with [employer] insurance ([place] medicaid pr ogram). Patti assists with setting up resources for patient. Called Patti @ [phone]. Message left on voice mail to return call. 2:02 Received call from February/[facility]. [employer] insurance has denied acute r ehab. Number for peer to peer if physician wants to appeal decision is . Pending . Notified Dr. Silva. 2:[address] Silva. He called number for peer to peer and left a message for return call. If patient is not approved will plan for home tomorrow with [facility] to continue therapy. Patient not agreeable to skilled. Called patients sister Winifred parra. Message left on voice mail. Emmie Butler, [phone] Stripping Shovel Operator/Care Managment * Emmie Butler LCSW - 07/07/2018 1:55 PM CDT Physician recommending short term skilled placement. Met with patient to discuss . Patient states he was previously in a facility and prefers to go home. He has in home services set up in the home through [address] Contacted patients sister/ DPOA. Message left to return call to discuss discharge planning needs. SW spoke with patients sister on admission and she refused placement for patient stating they will only be open to [facility] for therapy only. Physician planning to discharge patient tomorrow. 4:43 Received message from Hellen aguiar/POAntonio. Returned call ( [phone]) to up date on discharge. No answer will try again later. Emmie Butler, [phone] Stripping Shovel Operator/Care Management * Venu Silva MD - 07/07/2018 12:49 PM CDT Hospitalist Progress Note Subject: Feeling better as pain over right hip has slightly improved. No chest p ain or SOB. Appetite has been stable. No other events as per Nursing staff. Physical Examination: Vitals: BP 124/79 (BP Location: Left arm, Patient Position (BP): Supine) | Puls e 90 | Temp 98.7 F (37.1 C) (Oral) | Resp 18 | Ht 5' 6" (1.676 m) | Wt 6 6.8 kg (147 lb 3.2 oz) | SpO2 94% | BMI 23.76 kg/m General: In no acute distress Eyes: PERRLA, EOMI, no ictrus, no nystagmus HENT: NC/AT, mucous membrane moist, poor dentition Neck: supple, no JVD, no LAD, no mass Chest: moving bilateral and symmetrical CVS: normal S1 S2, no murmur Lung: coarse breath sound Abdomen: normal BS, non tender, soft, no HSM Neurologic: alert, oriented X3, no focal deficit, generalized weakness Extremities: Trace to 1+ edema, clubbing present, no cyanosis Skin: no new rash Muscloskeletal: Right hip tender barbara at surgical site, restricted ROM of hip LABS: Results for orders placed or performed during the hospital encounter of 07/04/18 (from the past 24 hour(s)) POC GLUCOSE Result Value Ref Range POC GLUCOSE 128 (H) 74 - 99 mg/dL MANAGER FITNESS NAME terry miles POC GLUCOSE Result Value Ref Range POC GLUCOSE 152 (H) 74 - 99 mg/dL MANAGER FITNESS NAME terry miles POC GLUCOSE Result Value Ref Range POC GLUCOSE 120 (H) 74 - 99 mg/dL MANAGER FITNESS NAME kristin clifton CBC WITH DIFFERENTIAL Result Value Ref Range WBC 8.1 4.0 - 11.0 K/uL RBC 3.09 (L) 4.70 - 6.00 M/uL HEMOGLOBIN 8.4 (L) 13.5 - 18.0 g/dL HEMATOCRIT 25.7 (L) 42.0 - 52.0 % MCV 83.2 78.0 - 100.0 fL MCH 27.2 27.0 - 34.0 pg MCHC 32.7 31.0 - 37.0 g/dL RDW 14.2 12.0 - 15.0 % RDW-STDEV 42.6 37.1 - 48.7 fL PLATELETS 344 150 - 450 K/uL MPV 7.9 (L) 9.3 - 12.4 fL NEUTROPHILS 69 31 - 76 % LYMPHOCYTES 19 (L) 24 - 44 % MONOCYTES 11 2 - 11 % EOSINOPHILS 1 0 - 6 % BASOPHILS 0 0 - 2 % IMMATURE GRANULOCYTES 1 0 - 2 % NEUTROPHIL ABSOLUTE 5.56 1.80 - 7.70 K/uL LYMPHOCYTE ABSOLUTE 1.51 1.00 - 4.80 K/uL MONOCYTE ABSOLUTE 0.89 0.10 - 1.30 K/uL EOSINOPHIL ABSOLUTE 0.04 0.00 - 0.70 K/uL BASOPHILS ABSOLUTE 0.01 0.00 - 0.20 K/uL IMMATURE GRANULOCYTES ABSOLUTE 0.04 0.00 - 0.10 K/uL BASIC METABOLIC PANEL Result Value Ref Range SODIUM 136 136 - 145 mmol/L POTASSIUM 4.1 3.5 - 5.1 mmol/L CHLORIDE 98 98 - 107 mmol/L CO2 26 22 - 29 mmol/L CALCIUM 8.6 (L) 8.8 - 10.2 mg/dL BUN 10 8 - 23 mg/dL CREATININE 0.56 (L) 0.67 - 1.17 mg/dL GLUCOSE 162 (H) 74 - 99 mg/dL GFR >60 >=60 mL/min/1.73 sq meter GFR, >60 >=60 mL/min/1.73 sq meter ANION GAP 12 4 - 13 mmol/L POC GLUCOSE Result Value Ref Range POC GLUCOSE 161 (H) 74 - 99 mg/dL MANAGER FITNESS NAME sara harris POC GLUCOSE Result Value Ref Range POC GLUCOSE 157 (H) 74 - 99 mg/dL MANAGER FITNESS NAME sara harris Telemetry: Personally reviewed. NSR Microbiology: Urine culture: no growth till date ASSESSMENT: Patient Active Problem List Diagnosis Code Chest pain, chronic R07.9 Coronary artery disease involving [place] coronary artery of [place] heart wit h angina pectoris I25.119 Peripheral arterial disease I73.9 Leg edema, left R60.0 Dyspnea, chronic R06.00 COPD (chronic obstructive pulmonary disease) J44.9 Hypertension I10 Hyperlipidemia with target LDL less than 70 E78.5 Depression F32.9 Acute blood loss anemia D62 Hematuria R31.9 Greater trochanter fracture S72.113A Gross hematuria R31.0 Hemorrhagic cystitis N30.91 Bursitis of right elbow M70.31 Tobacco dependence F17.200 Diabetes E11.9 Closed fracture of head of right femur S72.051A Elevated troponin R74.8 Epilepsy G40.909 Case discussed with: Dr Hansen, ortho Assessment and Plan: Closed fracture of head of right femur POA S/P ORIF DC antibiotics PT/OT to continue as tolerated SW consulted for discharge planning Pain management with oral [place] and IV morphine depending on pain level Discharge once has placement COPD Stable Oxygen supplement as needed Bronchodilator therapy as needed Supportive management CAD Stable Continue with medical management Hypertension Continue with present regime and monitor vitals closely Epilepsy Seizure precautions Continue with his home medications T2DM Resume his home medications Monitor blood sugar and cover with lispro as per sliding scale Nicotine dependence, active Smoking cessation counseling given. Nicotine patch if he agrees DVT and GI prophylaxis ordered. Rest of medical management will depend on clinical progression * Leeanna Kellogg PA - 07/07/2018 8:30 AM CDT ORTHOPEDIC ATTENDING PROGRESS NOTE PATIENT: Oliverio Dalton AGE: 67 y.o. : 1950 CSN: [id number] PCP: Claus Couch MD Admit Date: 07/04/2018 4:17 PM Admit Day: Hospital Day: 4 Date of Service: 07/07/2018 Admission Diagnosis: Femur fracture, right [S72.91XA] Subjective Subjective: Oliverio Dalton is a 67 y.o. male s/p 2 Days Post-Op Procedure(s): RIGHT TROCHANTERIC FIXATION NAILING, DAYA BED Pain: Moderate, slightly improved from yesterday Patient resting comfortably in bed. He was able to work with therapy yesterday a nd even take a couple steps. Objective Objective: Inpatient Scheduled Meds: ketorolac 15 mg ONCE sennosides-docusate sodium 1 Tablet BID cefTRIAXone 1,000 mg q 24 hour (daily) heparin 5,000 Units q 8 hour LORazepam 1 mg q 12 hour phenytoin 200 mg BID simvastatin 40 mg Daily BEDTIME ramipril 5 mg Daily LUNCH OLANZapine 2.5 mg Daily BEDTIME tamsulosin 0.4 mg Daily SUPPER metoprolol succinate 12.5 mg Daily ezetimibe 10 mg Daily BEDTIME fenofibrate nanocrystallized 145 mg Daily bethanechol 25 mg QID clopidogrel 75 mg Daily pantoprazole 40 mg AC Daily Breakfast FLUoxetine 40 mg Daily traZODone 50 mg Daily BEDTIME dextrose 5% See Admin Notes dextrose 12.5 Gram See Admin Notes dextrose 25 Gram See Admin Notes glucagon (human recombinant) 1 mg See Admin Notes naloxone 0.1 mg See Admin Notes insulin lispro TID Meals insulin lispro Daily BEDTIME Lab Results: Recent Labs 07/04/18 1748 07/05/18 0345 07/06/18 0217 07/07/18 0400 WBC 10.8 7.8 8.6 8.1 HGB 9.3* 10.6* 9.2* 8.4* PLT 386 446 382 344 , Recent Labs 07/06/18 0217 07/07/18 0400 NA 134* 136 K 4.1 4.1 CL 98 98 CO2 23 26 BUN 7* 10 GENERAL EXAM: Vitals: Blood pressure 113/58, pulse 92, temperature 99 F (37.2 C), tempera ture source Oral, resp. rate 18, height 5' 6" (1.676 m), weight 66.8 kg (147 lb 3.2 oz), SpO2 94 %. Temp Max: Temp (24hrs), Av.7 F (37.1 C), Min:98.3 F (36.8 C), Max:99 F (37.2 C) I & O: Intake/Output Summary (Last 24 hours) at 07/07/18 0830 Last data filed at 07/07/18 0822 Gross per 24 hour Intake 2006 ml Output 2825 ml Net -819 ml Date 07/07/18 0700 - 07/08/18 0659 Shift 9988-3175 8352-7466 0312-5326 24 Hour Total I N T A K E Shift Total O U T P U T Urine 275 275 Shift Total 275 275 General: NAD, A&O x 3 Respiratory: Normal Respiratory pattern, no distress Cardiac: RRR Musculoskeletal: Right hip incision covered with dressing and BRENDON clean, dry, an d intact. ROM limited due to pain, able to move foot up and down, and unable to SLR. NV intact. Assessment Assessment and Plan: Oliverio is a 67 y.o. male with right subcapital femur fracture s/p CRPP done 06/09 06/25, POD #2. 1. Doing well postoperatively. 2. DVT prophylaxsis with Plavix, taking [employer] 3. Weight Bearing Status: 50% PWB RLE 4. PT/OT for mobility, ROM, gait training and ADLs. Please advise home vs SNF vs Inpatient rehab. 5. Pain control with oxycodone, morphine, and Tylenol. 6. Follow up with [facility] in orthopedic clinic in 2 weeks for evaluation, x -rays, and staple removal. [facility] 07/07/2018 * Venu Silva MD - 07/06/2018 2:21 PM CDT Hospitalist Progress Note Subject: Feeling better. Pain over right hip has improved. No chest pain. No malinda rtness of breath than usual. No fever. NO other events as per Nursing staff. Physical Examination: Vitals: BP 130/62 | Pulse 77 | Temp 98.5 F (36.9 C) (Oral) | Resp 19 | H t 5' 6" (1.676 m) | Wt 67 kg (147 lb 11.2 oz) | SpO2 98% | BMI 23.84 kg/m General: In no acute distress Eyes: PERRLA, EOMI, no ictrus, no nystagmus HENT: NC/AT, mucous membrane moist, rest of ENT exam normal Neck: supple, no JVD, no LAD, no mass Chest: moving bilateral and symmetrical, normal on percussion and palpation CVS: normal S1 S2, no murmur Lung: coarse breath sound Abdomen: normal BS, non tender, soft, no HSM Neurologic: alert, oriented X3, no focal deficit in detail exam Extremities: Trace to 1+ edema, clubbing present, no cyanosis Skin: no new rash : ulloa cath in place, no hernia Muscloskeletal: Right hip tender barbara at surgical site, restricted ROM of hip LABS: Results for orders placed or performed during the hospital encounter of 07/04/18 (from the past 24 hour(s)) POC GLUCOSE Result Value Ref Range POC GLUCOSE 135 (H) 74 - 99 mg/dL MANAGER FITNESS NAME sara harris POC GLUCOSE Result Value Ref Range POC GLUCOSE 132 (H) 74 - 99 mg/dL MANAGER FITNESS NAME katlin amaya CBC WITH DIFFERENTIAL Result Value Ref Range WBC 8.6 4.0 - 11.0 K/uL RBC 3.38 (L) 4.70 - 6.00 M/uL HEMOGLOBIN 9.2 (L) 13.5 - 18.0 g/dL HEMATOCRIT 28.0 (L) 42.0 - 52.0 % MCV 82.8 78.0 - 100.0 fL MCH 27.2 27.0 - 34.0 pg MCHC 32.9 31.0 - 37.0 g/dL RDW 14.3 12.0 - 15.0 % RDW-STDEV 43.2 37.1 - 48.7 fL PLATELETS 382 150 - 450 K/uL MPV 7.8 (L) 9.3 - 12.4 fL NEUTROPHILS 76 31 - 76 % LYMPHOCYTES 14 (L) 24 - 44 % MONOCYTES 9 2 - 11 % EOSINOPHILS 0 0 - 6 % BASOPHILS 0 0 - 2 % IMMATURE GRANULOCYTES 1 0 - 2 % NEUTROPHIL ABSOLUTE 6.56 1.80 - 7.70 K/uL LYMPHOCYTE ABSOLUTE 1.23 1.00 - 4.80 K/uL MONOCYTE ABSOLUTE 0.74 0.10 - 1.30 K/uL EOSINOPHIL ABSOLUTE 0.02 0.00 - 0.70 K/uL BASOPHILS ABSOLUTE 0.01 0.00 - 0.20 K/uL IMMATURE GRANULOCYTES ABSOLUTE 0.05 0.00 - 0.10 K/uL BASIC METABOLIC PANEL Result Value Ref Range SODIUM 134 (L) 136 - 145 mmol/L POTASSIUM 4.1 3.5 - 5.1 mmol/L CHLORIDE 98 98 - 107 mmol/L CO2 23 22 - 29 mmol/L CALCIUM 8.6 (L) 8.8 - 10.2 mg/dL BUN 7 (L) 8 - 23 mg/dL CREATININE 0.54 (L) 0.67 - 1.17 mg/dL GLUCOSE 121 (H) 74 - 99 mg/dL GFR >60 >=60 mL/min/1.73 sq meter GFR, >60 >=60 mL/min/1.73 sq meter ANION GAP 13 4 - 13 mmol/L POC GLUCOSE Result Value Ref Range POC GLUCOSE 141 (H) 74 - 99 mg/dL MANAGER FITNESS NAME terry miles POC GLUCOSE Result Value Ref Range POC GLUCOSE 128 (H) 74 - 99 mg/dL MANAGER FITNESS NAME terry miles Telemetry: Personally reviewed. NSR Microbiology: Urine culture: no growth till date ASSESSMENT: Patient Active Problem List Diagnosis Code Chest pain, chronic R07.9 Coronary artery disease involving [place] coronary artery of [place] heart wit h angina pectoris I25.119 Peripheral arterial disease I73.9 Leg edema, left R60.0 Dyspnea, chronic R06.00 COPD (chronic obstructive pulmonary disease) J44.9 Hypertension I10 Hyperlipidemia with target LDL less than 70 E78.5 Depression F32.9 Acute blood loss anemia D62 Hematuria R31.9 Greater trochanter fracture S72.113A Gross hematuria R31.0 Hemorrhagic cystitis N30.91 Bursitis of right elbow M70.31 Tobacco dependence F17.200 Diabetes E11.9 Closed fracture of head of right femur S72.051A Elevated troponin R74.8 Epilepsy G40.909 Case discussed with: Dr Hansen, ortho Assessment and PLAN: Closed fracture of head of right femur POA S/P ORIF Continue with post op antibiotics PT/OT to start working and evaluating him SW consulted for discharge planning Pain management with oral [place] and IV morphine depending on pain level DC IV fluids DC Indwelling catheter COPD Stable Oxygen supplement as needed Bronchodilator therapy as needed Supportive management CAD Stable Continue with medical management Hypertension Continue with present regime and monitor vitals closely Epilepsy Seizure precautions Continue with his home medications T2DM Resume his home medications Monitor blood sugar and cover with lispro as per sliding scale Nicotine dependence, active Smoking cessation counseling given. Nicotine patch if he agrees DVT and GI prophylaxis ordered. Rest of medical management will depend on clinical progression * Leeanna Kellogg PA - 07/06/2018 8:09 AM CDT ORTHOPEDIC ATTENDING PROGRESS NOTE PATIENT: Oliverio Dalton AGE: 67 y.o. : 1950 CSN: [id number] PCP: Claus Couch MD Admit Date: 07/04/2018 4:17 PM Admit Day: Hospital Day: 3 Date of Service: 07/06/2018 Admission Diagnosis: Femur fracture, right [S72.91XA] Subjective Subjective: Oliverio Dalton is a 67 y.o. male s/p 1 Day Post-Op Procedure(s): RIGHT TROCHANTERIC FIXATION NAILING, DAYA BED Pain: Moderate, patient rates pain 10/10. Patient resting comfortably in bed with right heel elevated on pillow. He states he has asked for pain meds but has not received any. Objective Objective: Inpatient Scheduled Meds: ketorolac 15 mg ONCE sennosides-docusate sodium 1 Tablet BID cefTRIAXone 1,000 mg q 24 hour (daily) heparin 5,000 Units q 8 hour LORazepam 1 mg q 12 hour phenytoin 200 mg BID simvastatin 40 mg Daily BEDTIME ramipril 5 mg Daily LUNCH OLANZapine 2.5 mg Daily BEDTIME tamsulosin 0.4 mg Daily SUPPER metoprolol succinate 12.5 mg Daily ezetimibe 10 mg Daily BEDTIME fenofibrate nanocrystallized 145 mg Daily bethanechol 25 mg QID clopidogrel 75 mg Daily pantoprazole 40 mg AC Daily Breakfast FLUoxetine 40 mg Daily traZODone 50 mg Daily BEDTIME dextrose 5% See Admin Notes dextrose 12.5 Gram See Admin Notes dextrose 25 Gram See Admin Notes glucagon (human recombinant) 1 mg See Admin Notes naloxone 0.1 mg See Admin Notes insulin lispro TID Meals insulin lispro Daily BEDTIME Lab Results: Recent Labs 07/04/18 1748 07/05/18 0345 07/06/18 0217 WBC 10.8 7.8 8.6 HGB 9.3* 10.6* 9.2* PLT 386 446 382 , Recent Labs 07/05/18 0345 07/06/18 0217 NA 136 134* K 4.2 4.1 CL 101 98 CO2 23 23 BUN 10 7* GENERAL EXAM: Vitals: Blood pressure 133/66, pulse 93, temperature 98.2 F (36.8 C), resp. rate 19, height 5' 6" (1.676 m), weight 67 kg (147 lb 11.2 oz), SpO2 98 %. Temp Max: Temp (24hrs), Av.2 F (36.8 C), Min:98 F (36.7 C), Max:98.6 F (37 C) I & O: Intake/Output Summary (Last 24 hours) at 07/06/18 0809 Last data filed at 07/05/18 1800 Gross per 24 hour Intake 500 ml Output 2175 ml Net -1675 ml General: NAD, A&O x 3 Respiratory: Normal Respiratory pattern, no distress Cardiac: RRR Musculoskeletal: Right hip incision covered with dressing and BRENDON clean, dry, an d intact. BRENDON bandage appears too tight, loosened. ROM limited due to pain, able to move foot up and down, and unable to SLR. NV intact. Assessment Assessment and Plan: Oliverio is a 67 y.o. male with right subcapital femur fracture s/p CRPP done 06/09 06/25, POD #1. 1. Doing well postoperatively. 2. DVT prophylaxsis with Plavix, taking [employer] 3. Weight Bearing Status: 50% PWB RLE 4. PT/OT for mobility, ROM, gait training and ADLs. Please advise home vs SNF vs Inpatient rehab. 5. Pain control with oxycodone, morphine, and Tylenol. [facility] 07/06/2018 * Hector Wild, RN - 07/05/2018 6:26 PM CDT Pt had repair of L femur today. VSS. Patient is on 1L O2 by NC. Family at bedsid e. Pt drowsy since return from surgery but arouses to verbal stimuli, IV antibio tic per emar. Call light within reach. * Cherie Amaya RN - 07/05/2018 3:30 PM CDT Wound Care Consult: Pressure injury location: bilateral coccyx stage 1 Pressure injury shape/base:irregular/closed, red Periwound area/wound edges: non-blanching erythema/attached Measurement: 7x5x0 cm Tunneling/undermining: Drainage Appearance/amount:none Dressing placed:mepilex sacral, waffle overlay ordered All POA. Right heel with slow blanching noted, offloading boot ordered. Pt encouraged to turn. Family at bedside states pt has had bedsores before. Pt cachetic. D/w att ending RN and [employer]. [phone] * Hector Wild RN - 07/05/2018 2:37 PM CDT Pt received from PACU. Patient is on 2L NC. Patient placed on continuous pulse o x. O2 saturation 98%. VSS. Pt is drowsy but arouses easily to verbal stimuli. 2 of patients sisters at the bedside. Pedal pulses 2+ bilaterally. Bilateral lower extremities warm to touch. Right hip not able to visualize due to brendon wrap. No additional swelling noted. Ulloa patent and draining. Will continue to monitor p atient. * Bahman Davis MD - 07/05/2018 8:31 AM CDT Admit Date: 07/04/2018 Hospital LOS: 1 day Subjective: Patient With likely right hip fracture, CT right hip images at [place] showian ng "Cortical irregularity along the superior margin of the junction of the righ t femoral head and neck. Nondisplaced fracture cannot be excluded. Right hip abdullahi nt effusion, potentially representing hemarthrosis." He reports that pain persists in right hip despite analgesia. Denies pain outsi de of the hip. Plan for OR this morning. No chest pain or shortness of breath. He currently is n.p.o. No fevers reported. ROS as noted above Current Facility-Administered Medications Medication Dose Route Frequency Provider Last Rate Last Dose [COMPLETED] SODIUM CHLORIDE 0.9 % INJECTION SYRINGE (CABINET OVERRIDE) 10 mL at 07/05/18 0218 [COMPLETED] sodium chloride 0.9% bolus solution 1,000 mL 1,000 mL IV ONCE S Kentrell lorenzo, Stopped at 07/04/18 1759 [COMPLETED] sodium chloride 0.9% bolus solution 1,000 mL 1,000 mL IV ONCE D Adam epps DO 1,000 mL/hr at 07/04/18 1730 1,000 mL at 07/04/18 1730 LORazepam (ATIVAN) tablet 1 mg 1 mg Oral q 12 hour Omar Mcnulty DNP 1 mg at 07/05/18 08 phenytoin sodium (DILANTIN) extended release capsule 200 mg 200 mg Oral BID Omar Mcnulty DNP 200 mg at 07/05/18 0820 simvastatin (ZOCOR) tablet 40 mg 40 mg Oral Daily BEDTIME Omar Mcnulty D [employer] 40 mg at 07/04/18 224 ramipril (ALTACE) capsule 5 mg 5 mg Oral Daily LUNCH Omar Mcnulty DNP OLANZapine (ZyPREXA) tablet 2.5 mg 2.5 mg Oral Daily BEDTIME Omar Mcnulty DNP 2.5 mg at 07/04/182247 tamsulosin (FLOMAX) SR 24 hour capsule 0.4 mg 0.4 mg Oral Daily SUPPER Omar Garcia DNP 0.4 mg at 07/04/182246 albuterol sulfate 90 mcg/Actuation inhaler 2 Puff 2 Puff Inhalation Resp q 4 h PRN Omar Mcnulty DNP metoprolol succinate (TOPROL XL) SR 24 hour tablet 12.5 mg 12.5 mg Oral Consuelo ly Omar Mcnulty DNP 12.5 mg at 07/05/18 08 ezetimibe (ZETIA) tablet 10 mg 10 mg Oral Daily BEDTIME Omar Mcnulty DNP 10 mg at 07/04/18 224 fenofibrate nanocrystallized (TRICOR) tablet 145 mg 145 mg Oral Daily Omar Patel DNP bethanechol (URECHOLINE) tablet 25 mg 25 mg Oral QID Omar Mcnulty DNP 25 mg at 07/05/18 0822 clopidogrel (PLAVIX) tablet 75 mg 75 mg Oral Daily Omar Mcnulty DNP pantoprazole (PROTONIX) tablet 40 mg 40 mg Oral AC Daily Breakfast Omar Mcnulty DNP 40 mg at 07/05/18 0540 zolpidem (AMBIEN) tablet 10 mg 10 mg Oral HS PRN Omar Mcnulty DNP FLUoxetine (PROzac) capsule 40 mg 40 mg Oral Daily Omar Mcnulty DNP traZODone (DESYREL) tablet 50 mg 50 mg Oral Daily BEDTIME Omar Mcnulty D [employer] 50 mg at 07/05/18 0004 dextrose 5% infusion IV See Admin Notes Omar Mcnulty DNP dextrose 50% (D50) syringe 12.5 Gram 12.5 Gram IV See Admin Notes Omar Mcnulty DNP dextrose 50% (D50) syringe 25 Gram 25 Gram IV See Admin Notes Luann Mcnulty DNP glucagon HCl 1 mg injection 1 mg 1 mg IM See Admin Notes Omar Mcnulty DN P naloxone (NARCAN) 0.4 mg/mL injection 0.1 mg 0.1 mg IV See Admin Notes Omar Garcia DNP magnesium hydroxide (MILK OF MAGNESIA) oral suspension 30 mL 30 mL Oral Consuelo ly PRN Omar Mcnulty DNP ondansetron (ZOFRAN ODT) tablet 4 mg 4 mg Oral q 6 hour PRN Omar Mcnulty DNP ondansetron (ZOFRAN) 4 mg/2 mL injection 4 mg 4 mg IV q 6 hour PRN Omar Mcnulty DNP acetaminophen (TYLENOL) tablet 650 mg 650 mg Oral q 6 hour PRN Hossein Mcnulty DNP sodium chloride 0.9% infusion IV Continuous Omar Mcnulty DNP 75 mL/hr a t 07/04/18 2244 insulin lispro (HumaLOG) variable dose injection subCUT TID Meals Omar Mcnulty DNP insulin lispro (HumaLOG) variable dose injection subCUT Daily BEDTIME Mjg Omar hoff DNP oxyCODONE-acetaminophen (PERCOCET) 7.5-325 mg per tablet 1 Tablet 1 Tablet Oral q 4 hour PRN Omar Mcnulty DNP morphine 4 mg/mL injection 4 mg 4 mg IV q 2 hour PRN Adam Busch, DO 4 mg at 07/05/18 0815 [COMPLETED] SODIUM CHLORIDE 0.9 % INJECTION SYRINGE (CABINET OVERRIDE) 10 mL at 07/04/18 2019 [COMPLETED] SODIUM CHLORIDE 0.9 % INJECTION SYRINGE (CABINET OVERRIDE) 10 mL at 07/04/18 2242 Objective: Patient Vitals for the past 8 hrs: BP Temp Temp src Pulse Resp SpO2 07/05/18 0801 139/68 98.3 F (36.8 C) Oral 88 18 97 % 07/05/18 0401 109/57 98.2 F (36.8 C) Oral 80 16 94 % Intake/Output Summary (Last 24 hours) at 07/05/18 0831 Last data filed at 07/05/18 0630 Gross per 24 hour Intake 1429 ml Output 300 ml Net 1129 ml Hospital Encounter on 07/04/18 (from the past 24 hour(s)) EKG 12-LEAD Collection Time: 07/04/18 4:30 PM Narrative Stationary ECG Study [address] [address] Test Date: 07/04/2018 4:26 PM Pat Name: OLIVERIO DALTON Department: 30 Room: TRAUMA5 Gender: 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 CBC WITH DIFFERENTIAL Collection Time: 07/04/18 5:48 PM Result Value Ref Range WBC 10.8 4.0 - 11.0 K/uL RBC 3.42 (L) 4.70 - 6.00 M/uL HEMOGLOBIN 9.3 (L) 13.5 - 18.0 g/dL HEMATOCRIT 28.2 (L) 42.0 - 52.0 % MCV 82.5 78.0 - 100.0 fL MCH 27.2 27.0 - 34.0 pg MCHC 33.0 31.0 - 37.0 g/dL RDW 14.1 12.0 - 15.0 % RDW-STDEV 42.1 37.1 - 48.7 fL PLATELETS 386 150 - 450 K/uL MPV 7.8 (L) 9.3 - 12.4 fL NEUTROPHILS 73 31 - 76 % LYMPHOCYTES 16 (L) 24 - 44 % MONOCYTES 10 2 - 11 % EOSINOPHILS 0 0 - 6 % BASOPHILS 0 0 - 2 % IMMATURE GRANULOCYTES 1 0 - 2 % NEUTROPHIL ABSOLUTE 7.88 (H) 1.80 - 7.70 K/uL LYMPHOCYTE ABSOLUTE 1.71 1.00 - 4.80 K/uL MONOCYTE ABSOLUTE 1.13 0.10 - 1.30 K/uL EOSINOPHIL ABSOLUTE 0.03 0.00 - 0.70 K/uL BASOPHILS ABSOLUTE 0.01 0.00 - 0.20 K/uL IMMATURE GRANULOCYTES ABSOLUTE 0.07 0.00 - 0.10 K/uL BASIC METABOLIC PANEL Collection Time: 07/04/18 5:48 PM Result Value Ref Range SODIUM 132 (L) 136 - 145 mmol/L POTASSIUM 4.3 3.5 - 5.1 mmol/L CHLORIDE 97 (L) 98 - 107 mmol/L CO2 22 22 - 29 mmol/L CALCIUM 8.3 (L) 8.8 - 10.2 mg/dL BUN 13 8 - 23 mg/dL CREATININE 0.63 (L) 0.67 - 1.17 mg/dL GLUCOSE 133 (H) 74 - 99 mg/dL GFR >60 >=60 mL/min/1.73 sq meter GFR, >60 >=60 mL/min/1.73 sq meter ANION GAP 13 4 - 13 mmol/L TROPONIN 2 HR, 5TH GEN Collection Time: 07/04/18 9:25 PM Result Value Ref Range TROPONIN T, 2 HR 5TH GEN 37 (H) <=15 ng/L DELTA 2HR TROPONIN T 2 <4 Narrative Troponin elevated. Delta not changing. POC GLUCOSE Collection Time: 07/04/18 9:44 PM Result Value Ref Range POC GLUCOSE 162 (H) 74 - 99 mg/dL MANAGER FITNESS NAME katlin amaya TROPONIN 6 HR, 5TH GEN Collection Time: 07/04/18 10:57 PM Result Value Ref Range TROPONIN T, 6 HR 5TH GEN 40 (H) <=15 ng/L DELTA 6HR TROPONIN T 5 <12 Narrative Troponin elevated. Delta indeterminate. POC GLUCOSE Collection Time: 07/04/18 10:57 PM Result Value Ref Range POC GLUCOSE 136 (H) 74 - 99 mg/dL MANAGER FITNESS NAME shola batista CBC WITH DIFFERENTIAL Collection Time: 07/05/18 3:45 AM Result Value Ref Range WBC 7.8 4.0 - 11.0 K/uL RBC 3.89 (L) 4.70 - 6.00 M/uL HEMOGLOBIN 10.6 (L) 13.5 - 18.0 g/dL HEMATOCRIT 32.8 (L) 42.0 - 52.0 % MCV 84.3 78.0 - 100.0 fL MCH 27.2 27.0 - 34.0 pg MCHC 32.3 31.0 - 37.0 g/dL RDW 14.4 12.0 - 15.0 % RDW-STDEV 43.9 37.1 - 48.7 fL PLATELETS 446 150 - 450 K/uL MPV 7.8 (L) 9.3 - 12.4 fL NEUTROPHILS 68 31 - 76 % LYMPHOCYTES 19 (L) 24 - 44 % MONOCYTES 12 (H) 2 - 11 % EOSINOPHILS 0 0 - 6 % BASOPHILS 0 0 - 2 % IMMATURE GRANULOCYTES 1 0 - 2 % NEUTROPHIL ABSOLUTE 5.34 1.80 - 7.70 K/uL LYMPHOCYTE ABSOLUTE 1.45 1.00 - 4.80 K/uL MONOCYTE ABSOLUTE 0.94 0.10 - 1.30 K/uL EOSINOPHIL ABSOLUTE 0.03 0.00 - 0.70 K/uL BASOPHILS ABSOLUTE 0.02 0.00 - 0.20 K/uL IMMATURE GRANULOCYTES ABSOLUTE 0.04 0.00 - 0.10 K/uL BASIC METABOLIC PANEL Collection Time: 07/05/18 3:45 AM Result Value Ref Range SODIUM 136 136 - 145 mmol/L POTASSIUM 4.2 3.5 - 5.1 mmol/L CHLORIDE 101 98 - 107 mmol/L CO2 23 22 - 29 mmol/L CALCIUM 8.7 (L) 8.8 - 10.2 mg/dL BUN 10 8 - 23 mg/dL CREATININE 0.66 (L) 0.67 - 1.17 mg/dL GLUCOSE 142 (H) 74 - 99 mg/dL GFR >60 >=60 mL/min/1.73 sq meter GFR, >60 >=60 mL/min/1.73 sq meter ANION GAP 12 4 - 13 mmol/L POC GLUCOSE Collection Time: 07/05/18 7:27 AM Result Value Ref Range POC GLUCOSE 148 (H) 74 - 99 mg/dL MANAGER FITNESS NAME sara harris Physical Exam: Constitutional: See Vitals above. no acute distress. HEENT: No scleral icterus or conjunctival injection Cardiovascular:RRR without murmur, no edema Respiratory: no respiratory distress. Auscultation: CTAB Gastrointensitnal: Abdomen Soft, Non-tender, Non-distended Musculoskeletal: Right anterior hip with tenderness. No obvious leg shortening. Right DP pulses palpable Neurologic: No focal deficit noted Psychiatric: Alert and Oriented x 3. Normal judgement Assessment: Principal Problem: Closed fracture of head of right femur Active Problems: Coronary artery disease involving [place] coronary artery of [place] heart with angina pectoris COPD (chronic obstructive pulmonary disease) Hypertension Hyperlipidemia with target LDL less than 70 Tobacco dependence Diabetes Elevated troponin Epilepsy Plan: See orders. Principal Problem: Closed fracture of head of right femur -Appreciate orthopedics, Dr. Hansen. Plan OR today for repair Active Problems: Coronary artery disease involving [place] coronary artery of [place] heart with angina pectoris -Stable without acute concerns. Continue Plavix. -History of coronary artery bypass grafting he reports about 15 years ago. Has had multiple stents, most recently 4-5 years ago. -EKG with only mild T-wave abnormality. No chest pain. -High sens- Troponin delta negative, reassuring. COPD (chronic obstructive pulmonary disease) -Stable, not requiring oxygen at this time. He reports that he plans to quit sm oking tobacco. -As needed albuterol Hypertension -Blood pressure stable at this time. Continuing on low-dose metoprolol and rami pril Hyperlipidemia with target LDL less than 70 -Zocor Tobacco dependence -As needed nicotine patch. He reports that he plans to quit smoking. Diabetes -On sliding scale, blood sugar under reasonable control. Epilepsy -No recent seizure activity -Continue Dilantin DVT Prophylaxis: We will need to start Lovenox or heparin postoperative Code Status: FULL Disposition: Pending clinical course and operative repair of hip. Likely will r [facility] senior living facility placement. Signed: Bahman Davis MD 07/05/2018, 8:31 AM documented in this encounter H&P Notes * Omar McnultyNAYELY - 07/04/2018 5:31 PM CDT Hospitalist Admission History and Physical PATIENT: Oliverio Dalton AGE: 67 y.o. CSN: [id number] : 1950 PCP: Claus Couch MD HPI: Oliverio Dalton is a 67 y.o. White male a patient of Claus Couch MD who is being admitted through the emergency room with chief complaint of fall right hi p fx. Pt presented to [place] for right hip pain secondary to a fall. Pt sta mann he was reaching for something in the bathroom, and fell landing on his right side. He states he previously broke his left hip. He denies LOC, CP, SOB, nec k pain, or other acute injuries. Pt states he has low blood pressure which is n ormal for him. Pt had troponin of 43 before transferring to [facility] for Or tho consult. Pt again states no chest pain. Pt will be admitted for monitoring troponin and Ortho consult for hip fx. Allergies: Allergies Allergen Reactions Penicillins Hives Codeine [...] failure) COPD (chronic obstructive pulmonary disease) Depression GERD (gastroesophageal reflux disease) Hyperlipidemia LDL goal < 70 Hypertension Peripheral vascular disease PSHx: Past Surgical History: Procedure Laterality Date HX APPENDECTOMY HX CHOLECYSTECTOMY HX CORONARY ARTERY BYPASS GRAFT HX HAMMER TOE REPAIR HX HERNIA INCISIONAL REPAIR HX HERNIA INGUINAL REPAIR HX PTCA PA CYSTOURETHROSCOPY N/A 09/04/2017 CYSTOSCOPY WITH CLOT EVACUATION BLADDER performed by Walter Dalton MD at [facility] OR PA UROLOGY SURGERY PROCEDURE UNLISTED N/A 09/04/2017 BLADDER BIOPSY performed by Walter Dalton MD at [facility] OR PA UROLOGY SURGERY PROCEDURE UNLISTED Bilateral 09/04/2017 PYELOGRAM RETROGRADE BILATERAL performed by Walter Dalton MD at [facility] OR Home Medications: (Not in a hospital admission) Social Hx: Social History Substance Use Topics Smoking status: Never Smoker Smokeless tobacco: Never Used Alcohol use No Family Hx: Family History Problem Relation Age of Onset Heart Failure Mother Hypertension Mother Hypertension Father Stroke Father Review of Systems Constitutional- no fever, sweats, night sweats, change in fatigue level EYE- no blurred vision, double vision ENT-, no difficulty swallowing, no symptoms of oral candidiasis Lungs- no complaint of respiratory distress, no wheezing CV- no chest pain, palpitation GI- no nausea, vomiting, diarrhea, no abdominal pain - no difficulty voiding, no flank pain MS- no significant edema, right hip pain 10 system review is otherwise negative except as discussed above. Physical: Vitals Patient Vitals for the past 8 hrs: BP Temp Temp src Pulse Resp SpO2 Height Weight 07/04/18 1715 (!) 93/52 - - 80 16 98 % - - 07/04/18 1700 96/54 - - 79 19 97 % - - 07/04/18 1650 (!) 94/56 - - 81 23 98 % - - 07/04/18 1645 (!) 93/54 - - 78 17 95 % - - 07/04/18 1630 (!) 85/54 - - 81 14 96 % - - 07/04/18 1628 (!) 92/51 97.5 F (36.4 C) Oral - 16 96 % 6' (1.829 m) 63.5 kg (140 lb) 07/04/18 1625 (!) 92/51 - - 81 20 97 % - - Physical Exam General appearance - alert, well appearing, and in no distress Mental status - alert, oriented to person, place, and time, normal mood, behavio r, speech, dress, motor activity, and thought processes Eyes - pupils equal and reactive, extraocular eye movements intact, sclera anict zoila, chronic right droopy eye Neck - supple, no significant adenopathy Lymphatics - no palpable cervical lymphadenopathy Chest - clear to auscultation, no wheezes, rales or rhonchi, symmetric air entry Heart - normal rate, regular rhythm, normal S1, S2, no murmur, rubs, clicks or gallops Abdomen - soft, nontender, nondistended Neurological - neck supple without rigidity, cranial nerves II through XII intac t, motor and sensory grossly normal bilaterally, normal muscle tone, no tremors, strength 5/5 Extremities - peripheral pulses normal, no pedal edema, no clubbing or cyanosis Skin - normal coloration and turgor, no rashes, no suspicious skin lesions noted Data Review: No results found for this visit on 07/04/18 (from the past 24 hour(s)). EKG: ER provider reported no ST changes- EKG pending XRAY: No results found. Past records available through [facility] Case Reviewed with ER Provider, Dr. Go Assessment: Principal Problem: Closed fracture of head of right femur Active Problems: Coronary artery disease involving [place] coronary artery of [place] heart with angina pectoris COPD (chronic obstructive pulmonary disease) Hypertension Hyperlipidemia with target LDL less than 70 Tobacco dependence Diabetes Elevated troponin Plan: Right hip fracture Ortho consulted NPO after Midnight- possible repair tomorrow Pain control Labs pending Elevated troponin Baseline 43- 6 hr and 2hr pending Denies CP EKG reported as no changes EKG pending Telemetry Labs pending CAD/HLD/HTN Continue Plavix and other home meds COPD Continue home meds Oxygen as needed DM Hold actos SS correctional insulin QID Hyperglycemia pathway DVT px- SCD's for now Labs in am Resume home meds Omar Mcnulty DNP, 07/04/2018 5:34 PM CC. Claus Couch MD [address] [place] [phone] documented in this encounter Consult Notes * Zachary Hansen DO - 07/05/2018 11:03 AM CDT Associated Order(s): IP CONSULT TO ORTHOPEDIC SURGERY IN PATIENT H&P/CONSULT PATIENT: Oliverio Dalton AGE: 67 y.o. : 1950 CSN: [id number] PCP: Claus Couch MD Admit Date: 07/04/2018 4:17 PM Subjective: Closed fracture of head of right femur HISTORY OF PRESENT ILLNESS: Oliverio Dalton is a 67 y.o. male being seen today for a right nondisplaced femor al neck fracture that was seen on CT scan obtained at [place]. He states shruti t his right hip bothers him substantially and he recently fell on it. He states he is unable to bear weight on his right hip due to the pain. He states he was getting around without any assistive devices prior to the fall.. Allergies Allergen Reactions Penicillins Hives Codeine Unknown Doxycycline Rash Phenobarbital Weakness "relaxes me too much" Piperacillin-Tazobactam Hives and Rash Breaks out Sulfamethoxazole-Trimethoprim Nausea and Vomiting Terazosin Other (See Comments) Chest heaviness, chest pain Valium [Diazepam] Other (See Comments) "stops breathing, no pulse" Unresponsiveness "stops breathing, no pulse" "stops breathing, no pulse" Unresponsiveness Prescriptions Prior to Admission Medication Sig Dispense Refill Last Dose ramipril (ALTACE) 5 mg capsule Take 1 Capsule (5 mg) by mouth daily with regla ch. 30 Capsule 0 07/04/2018 at Unknown time OLANZapine (ZYPREXA) 2.5 mg tablet Take 2.5 mg by mouth daily at bedtime. 07/03/2018 at Unknown time LORazepam (ATIVAN) 1 mg tablet Take 1 mg by mouth every 12 hours. 8 at Unknown time traZODone (DESYREL) 50 mg tablet Take 50 mg by mouth daily at bedtime. 06/09 at Unknown time prochlorperazine maleate (COMPAZINE) 10 mg tablet Take 10 mg by mouth every 6 hours as needed for Nausea/Emesis. 07/04/2018 at Unknown time oxyCODONE-acetaminophen (PERCOCET) 5-325 mg tablet Take 1 Tab by mouth every 6 hours as needed for Pain, Moderate. 07/04/2018 at Unknown time fluticasone (FLOVENT HFA) 110 mcg/actuation Inhalation Aero Take 1 Puff by i nhalation 2 times daily. 12 Gram 1 07/04/2018 at Unknown time albuterol (PROAIR HFA) 90 mcg/Actuation Inhalation HFAA inhaler Take 2 Puffs by inhalation every 4 hours as needed for Shortness of Breath or Wheezing. 6.7 Gram 1 07/03/2018 at Unknown time zolpidem (AMBIEN) 10 mg Oral tablet Take 10 mg by mouth nightly as needed. 07/03/2018 at Unknown time pioglitazone (ACTOS) 30 mg Oral tablet Take 30 mg by mouth daily with breakf ast. 07/04/2018 at Unknown time bethanechol (URECHOLINE) 25 mg Oral tablet Take 25 mg by mouth 4 times daily . 07/04/2018 at Unknown time clopidogrel (PLAVIX) 75 mg Oral Tab Take 75 mg by mouth daily. 07/04/2018 at Unknown time tamsulosin (FLOMAX) 0.4 mg Oral capsule Take 0.4 mg by mouth daily with supp er. 07/03/2018 at Unknown time FLUoxetine (PROZAC) 20 mg Oral tablet Take 40 mg by mouth daily. 07/04/20 18 at Unknown time loratadine (CLARITIN) 10 mg Oral tablet Take 10 mg by mouth daily. 2017 at Unknown time magnesium oxide 250 mg Oral Tab Take 250 mg by mouth 3 times daily with meal s. 07/04/2018 at Unknown time phenytoin (DILANTIN) 200 mg Oral Cap Take 200 mg by mouth 2 times daily. 07/04/2018 at Unknown time esomeprazole (NEXIUM) 20 mg Oral CpDR Take 20 mg by mouth daily before break fast. 07/04/2018 at Unknown time multivitamin (DAILY-DAVID) Oral tablet Take 1 Tab by mouth daily after lunch. 07/04/2018 at Unknown time fenofibrate nanocrystallized (TRICOR) 145 mg Oral tablet Take 145 mg by mout h daily. 07/04/2018 at Unknown time ezetimibe (ZETIA) 10 mg Oral tablet Take 10 mg by mouth daily at bedtime. 07/03/2018 at Unknown time metoprolol succinate ER 24 hour (TOPROL-XL) 25 mg Oral tablet Take 12.5 mg b y mouth daily. 07/04/2018 at Unknown time simvastatin (ZOCOR) 40 mg Oral tablet Take 40 mg by mouth daily at bedtime. 07/03/2018 at Unknown time belladonna alkaloids-opium (B&O 15A) 16.2-30 mg Suppository Insert 1 Suppository by rectum every 6 hours as needed (bladder spasms). Max Daily Amount: 4 Suppositories 10 Suppository 0 > Month at Unknown time nitroglycerin (NITROSTAT) 0.4 mg Tablet, Sublingual Place 0.4 mg under tongu e every 5 minutes as needed for Chest Pain. Unknown at Unknown time Patient Active Problem List Diagnosis Code Chest pain, chronic R07.9 Coronary artery disease involving [place] coronary artery of [place] heart wit h angina pectoris I25.119 Peripheral arterial disease I73.9 Leg edema, left R60.0 Dyspnea, chronic R06.00 COPD (chronic obstructive pulmonary disease) J44.9 Hypertension I10 Hyperlipidemia with target LDL less than 70 E78.5 Depression F32.9 Acute blood loss anemia D62 Hematuria R31.9 Greater trochanter fracture S72.113A Gross hematuria R31.0 Hemorrhagic cystitis N30.91 Bursitis of right elbow M70.31 Tobacco dependence F17.200 Diabetes E11.9 Closed fracture of head of right femur S72.051A Elevated troponin R74.8 Epilepsy G40.909 Past Medical History: Diagnosis Date Anxiety Arthritis CAD S/P percutaneous coronary angioplasty CHF (congestive heart failure) COPD (chronic obstructive pulmonary disease) Depression Epilepsy 07/05/2018 GERD (gastroesophageal reflux disease) Hyperlipidemia LDL goal < 70 Hypertension Peripheral vascular disease Past Surgical History: Procedure Laterality Date HX APPENDECTOMY HX CHOLECYSTECTOMY HX CORONARY ARTERY BYPASS GRAFT HX HAMMER TOE REPAIR HX HERNIA INCISIONAL REPAIR HX HERNIA INGUINAL REPAIR HX PTCA PA CYSTOURETHROSCOPY N/A 09/04/2017 CYSTOSCOPY WITH CLOT EVACUATION BLADDER performed by Walter Dalton MD at [facility] OR PA UROLOGY SURGERY PROCEDURE UNLISTED N/A 09/04/2017 BLADDER BIOPSY performed by Walter Dalton MD at [facility] UROLOGY SURGERY PROCEDURE UNLISTED Bilateral 09/04/2017 PYELOGRAM RETROGRADE BILATERAL performed by Walter Dalton MD at [facility] OR Family History Problem Relation Age of Onset Heart Failure Mother Hypertension Mother Hypertension Father Stroke Father Social History Social History Marital status: Spouse name: N/A Number of children: N/A Years of education: N/A Occupational History Not Employed Social History Main Topics Smoking status: Current [...] Lives alone with his dog. 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 GI: Patient denies the presence of any abdominal pain, heartburn, constipation, or blood in stool. NEURO: Patient denies the presence of any heat or cold intolerance, or recent ch anges in motor or speech coordination Objective: Inpatient Scheduled Meds: clindamycin 900 mg Pre-Proc Once ketorolac 15 mg ONCE LORazepam 1 mg q 12 hour phenytoin 200 mg BID simvastatin 40 mg Daily BEDTIME ramipril 5 mg Daily LUNCH OLANZapine 2.5 mg Daily BEDTIME tamsulosin 0.4 mg Daily SUPPER metoprolol succinate 12.5 mg Daily ezetimibe 10 mg Daily BEDTIME fenofibrate nanocrystallized 145 mg Daily bethanechol 25 mg QID clopidogrel 75 mg Daily pantoprazole 40 mg AC Daily Breakfast FLUoxetine 40 mg Daily traZODone 50 mg Daily BEDTIME dextrose 5% See Admin Notes dextrose 12.5 Gram See Admin Notes dextrose 25 Gram See Admin Notes glucagon (human recombinant) 1 mg See Admin Notes naloxone 0.1 mg See Admin Notes insulin lispro TID Meals insulin lispro Daily BEDTIME Recent Labs 07/04/18 1748 07/05/18 0345 WBC 10.8 7.8 HGB 9.3* 10.6* PLT 386 446 , Recent Labs 07/04/18 1748 07/05/18 0345 NA 132* 136 K 4.3 4.2 CL 97* 101 CO2 22 23 BUN 13 10 GENERAL EXAM: Vitals: Blood pressure 123/59, pulse 82, temperature 98.5 F (36.9 C), tempe rature source Temporal, resp. rate 18, height 5' 6" (1.676 m), weight 67 kg (147 lb 11.2 oz), SpO2 97 %. Temp (24hrs), Av.2 F (36.8 C), Min:97.5 F (36.4 C), Max:98.5 F (36 .9 C) General: Alert and oriented to person place and events; polite and cooperative; in no acute distress and without respiratory distress. -- Age appropriate respon ses. HEENT: Normocephalic and atraumatic, Extraocular movements intact, OP has intact , moist mucous membranes NECK: Supple with functional range of motion, and without lymphadenopathy. CV: distal pulses are palpable and equal bilaterally. CHEST: equal rise and fall of chest wall with respirations that are non-labored. ABD: non-distended, non-tender MSK: RUE: Full ROM without pain, No Tenderness to palpation from shoulder to finger s. Intact sensation C5-T1, including M/U/R distribution Palpable Radial Pulse with good capillary refill. Motor intact in Deltoid, Biceps, Triceps, Wrist Flexion, Wrist Extension, and G rip LUE: Full ROM without pain, No Tenderness to palpation from shoulder to finger s. Intact sensation C5-T1, including M/U/R distribution Palpable Radial Pulse with good capillary refill. Motor intact in Deltoid, Biceps, Triceps, Wrist Flexion, Wrist Extension, and G rip RLE: On examination of his right hip he has pain with range of motion of the h ip. He has intact sensation L2 S1. There is no pain with palpation of the femu r or tibia and ankle. There is no significant swelling of the right lower extre mity. Intact sensation L2-S1 Intact Motor of Iliopsoas, Quadriceps, Hamstrings, Tibialis Anterior and Gastro c/Soleus. Palpable DP and PT Pulse with good capillary refill. Normal Skin turgor and coloration, no vascular symptoms. LLE: Full ROM of the Hip, Knee and Ankle without pain, No Tenderness to palpat ion Intact sensation L2-S1 Intact Motor of Iliopsoas, Quadriceps, Hamstrings, Tibialis Anterior and Gastro c/Soleus. Palpable DP and PT Pulse with good capillary refill. Normal Skin turgor and coloration, no vascular symptoms. Xr Hip 2 Or 3 Views Rt Result Date: 07/05/2018 AP pelvis and lateral radiographs of the right hip 07/05/2018 9:26 AM HISTORY: 67 years Male presents with closed hip fracture COMPARISON: Radiographs and CT one day previous. FINDINGS: The crosstable lateral is underpenetrated. The nondisp laced subcapital right femoral head fracture is not delineated on these radiogra phs. The pelvis is intact. There is no dislocation. Partial visualization of le ft hip hardware with healed left femoral neck fracture. IMPRESSION: Subcapital right femoral neck fractures not delineated on today's im aging Assessment and Plan: Principal Problem: Closed fracture of head of right femur Active Problems: Coronary artery disease involving [place] coronary artery of [place] heart with angina pectoris COPD (chronic obstructive pulmonary disease) Hypertension Hyperlipidemia with target LDL less than 70 Tobacco dependence Diabetes Elevated troponin Epilepsy 1. Nondisplaced femoral neck fracture: We will proceed with percutaneous fixat ion of the nondisplaced femoral neck fracture today. He is on Plavix and theref ore if it displaces in the meantime he will need to wait a couple days prior to proceeding with a hemiarthroplasty. Postoperatively he will be toe-touch weight bearing on the right lower extremity 2. DVT prophylaxsis with Plavix postop 3. Pain control with oral and IV narcotics with plan to transition to just oral narcotics prior to discharge. 4. NPO now 5. Physical therapy to start on POD #1 for mobility, ROM and gait training. 6. Weight Bearing Status: Toe-touch weightbearing right lower extremity postop Zachary Hansen DO Orthopaedic Trauma Surgeon 07/05/2018 documented in this encounter OR Notes * Operative Report - Zachary Hansen DO - 07/05/2018 1:32 PM CDT [facility] [place] [id number] NAME: OLIVERIO DALTON CSN: [id number] : 1950 ADMISSION DATE: 07/04/2018 OPERATIVE REPORT DATE: 07/05/2018 SURGEON: Zachary Hansen DO PREOPERATIVE DIAGNOSIS: Right nondisplaced femoral neck fracture. POSTOPERATIVE DIAGNOSIS: Right nondisplaced femoral neck fracture. PROCEDURE: Percutaneous pinning of right nondisplaced femoral neck fracture. PEOPLESOFT PROGRAMMER: None. INDICATION FOR PROCEDURE: Oliveroi is a 67-year-old man, who proceeded to fall o nto his right hip and sustained a nondisplaced femoral neck fracture that was se en on a CT. He subsequently was transferred from [place] to [place] for treat ment of his right femoral neck fracture. The risks and benefits of procedure we re discussed in great detail with him and we wished to proceed. He ultimately h ad some elevated troponin that were monitored closely, but he was still cleared for surgical intervention. DESCRIPTION OF PROCEDURE: Oliverio was met in the preop holding area where his r ight lower extremity was marked. H and P was reviewed. Consent was also review ed. He was taken back to the operating room and placed in supine position on th e operating table where general anesthesia was then obtained. Next, we proceede d to prep and drape his right hip in a sterile fashion. I obtained some C-arm f luoroscopy images to make sure that the femoral neck fracture did not displace i n the course of the last day and half. At that point, we then proceeded to prep and drape his hip in a sterile fashion. Time-out procedure was done. 900 mg o f clindamycin was administered. Next, we then made a small incision over the la teral aspect of the hip. I dissected through the subcutaneous tissue. I split the IT band. I then inserted a guidepin there to go up along the inferior femor al neck centered in the femoral neck on the lateral view. I inserted this guide pin and checked on AP and lateral views and was happy with this position. I mad e sure that the starting point was superior to the lesser trochanter. At that p oint, I then used the parallel guide to attempt to place 2 screws parallel to th is up in the proximal portion. Due to the angle of the inferior screw, I was no t able to accomplish this, and therefore, then I did freehand 2 more screws in t he superior head, 1 anterior and 1 posterior. Once we had this position, we the n measured them, drilled the outer cortex, and inserted screws. I used a 90 mm on the inferior screw, 80 mm on the superior, and 75 mm on the posterosuperior s crew. Once all this was complete, I irrigated out the hip, following fluoroscop y images to make sure that none of the screws penetrated the joint. I then clos ed the subcutaneous tissue with 2-0 Vicryl sutures followed by dominic. A steri le Silverlon dressing was then applied to the right hip. He was awakened from a nesthesia and transferred to PACU in stable condition. POSTOPERATIVE COURSE: He will be partial weightbearing on his right lower extre mity of about 50%. If he has increased pain with weightbearing on his right hip , then we will decrease him down to toe-touch weightbearing on the right lower e xtremity until he has resolution of his hip pain. At that point, then he can ad khan his weightbearing again. We will see him in clinic at 10-14 days postoper atively for wound evaluation and staple removal. We will obtain x-rays of his p devon and right hip to make sure that he has no displacement of the femoral neck fracture. I will then continue follow him closely every 4-6 weeks until he has complete healing of the right hip. He will go home back on his Plavix today an d continue this for his overall DVT prophylaxis. Zachary Hansen DO RS/medq VOICE JOB ID: [id number] DOCUMENT ID: [id number] cc: Zachary Hansen DO * Brief Op Note - Zachary Hansen DO - 07/05/2018 12:42 PM CDT Brief Postoperative Note Oliverio Cid Sha [id number] Pre-operative Diagnosis: Femur fracture, right Post-Op Diagnosis: Post-Op Diagnosis Codes: * Femur fracture, right [S72.91XA] Procedure(s) and Anesthesia Type: * RIGHT TROCHANTERIC FIXATION NAILING, DAYA BED - General Surgeon(s) and Role: * Zachary Hansen DO - Primary Additional CPT Codes: *No additional CPT codes listed in log* Procedure Start: 1200 Procedure End: 1230 Findings: See dictation Specimens: * No specimens in log * Implants: Implant Name Type Inv. Item Serial No. Shirt Folder Lot No. LRB No. Used Action SCREW ALEXA 7.3X75MM THRD 32MM 209.875 - [id number] Screw SCREW ALEXA 7.3X75MM THR D 32MM 209.875 [employer] Right 1 Implanted SCREW ALEXA 7.3X85MM THRD 32MM 209.885 - [id number] Screw SCREW ALEXA 7.3X85MM THR D 32MM 209.885 [employer] Right 1 Implanted Estimated Blood Loss: 100 mL Zachary Hansen DO documented in this encounter ED Notes * Danelle Robledo RN - 07/04/2018 6:39 PM CDT Report called to PRIYA Garcia. * Danelle Robledo RN - 07/04/2018 5:05 PM CDT Warm blankets provided for comfort. Patient updated family via phone. Patient de nies other needs at this time call light in reach. * Danelle Robledo RN - 07/04/2018 4:26 PM CDT Patient to ER via [facility] from [facility] for c/o left hip pain after fa lling in bathroom today. Patient is AAO x 4 on arrival to ER. Patient received F entanyl 100 mcg and Zofran 4 mg IV [employer] by [facility]. Patient changed into gown pl aced on cardiac and pulse ox monitor. EKG completed. Patient currently denies ch est pain. Patient oriented to room with call light in reach. * Love Maldonado RN - 07/04/2018 4:18 PM CDT Bed: T5 Expected date: 07/04/18 Expected time: 4:09 PM Means of arrival: [facility] IV Comments: [facility] Transfer * Kentrell Go DO - 07/04/2018 4:17 PM CDT HISTORY OF PRESENT ILLNESS Oliverio Dalton, a 67 y.o. male presents to the ED with a Chief Complaint of Fall and Hip Pain Subjective H&P PERFORMED AT: 1648 67 YO MALE PRESENTS TO ED VIA EMS FROM [facility] FOR LEFT HIP PAIN SEC ONDARY TO FALL. PT REPORTS HE FELL EARLIER THIS MORNING WHILE REACHING FOR SOMET ABBY IN THE BATHROOM, LANDING ON HIS LEFT SIDE. HE HAS PAIN IN HIS LEFT HIP SHRUTI T IS WORSE WITH MOVEMENT. HE DENIES LOC, OLIVIA, BACK PAIN, NECK PAIN, OR ANY OTHER ACUTE INJURIES. PT NOTES HE HAS HX OF HTN AND THAT HIS BLOOD PRESSURE USUALLY RU NS AROUND 116 SYSTOLIC. PMHX: CAD, COPD, PERIPHERAL VASCULAR DISEASE, HLD, CHF ALLERGIES: PENICILLINS, CODEINE, DOXYCYCLINE, PHENOBARBITAL, PIPERACILLIN-TAZOBA CTAM, SULFA, TERAZOSIN, VALIUM History provided by: The patient and a healthcare provider batch unloader used: No Arrived by: Private vehicle Arrived from: Home REVIEW OF SYSTEMS Review of Systems Constitutional: Negative for chills and fever. HENT: Negative for congestion and sore throat. Respiratory: Negative for cough and shortness of breath. Cardiovascular: Negative for chest pain, palpitations and leg swelling. Gastrointestinal: Negative for abdominal pain, diarrhea, nausea and vomiting. Genitourinary: Negative for dysuria and frequency. Musculoskeletal: Positive for arthralgias. Negative for back pain, myalgias and neck pain. LEFT HIP PAIN. Skin: Negative for rash. Neurological: Negative for dizziness, syncope and headaches. All other systems reviewed and are negative. PAST MEDICAL HISTORY REVIEWED MEDICAL: Patient has a past medical history of Anxiety; Arthritis; CAD S/P percutaneous coronary angioplasty; CHF (congestive heart failure); COPD (chronic obstructive pulmonary disease); Depression; GERD (gastroesophageal reflux disease); Hyperlip idemia LDL goal < 70; Hypertension; and Peripheral vascular disease. SURGICAL: Patient has a past surgical history that includes hx appendectomy; hx cholecyst ectomy; hx coronary artery bypass graft; hx ptca; hx hernia incisional repair; h x hernia inguinal repair; hx hammer toe repair; pr urology surgery procedure unl isted (N/A, 09/04/2017); pr cystourethroscopy (N/A, 09/04/2017); and pr urology surgery procedure unlisted (Bilateral, 09/04/2017). FAMILY: Patient's family history includes Heart Failure in his mother; Hypertension in h is father and mother; Stroke in his father. SOCIAL: reports that he has never smoked. He has never used smokeless tobacco. He repor ts that he does not drink alcohol, use [...] Chest pain, chronic; Coronary artery disease involving [place] artery of [place] heart with angina pectoris; Peripheral arterial disease; Leg edema, left; Dyspnea, chronic; COPD (chronic obstructive pulmonary disease); Hy pertension; Hyperlipidemia with target LDL less than 70; Depression; Acute blood loss anemia; Hematuria; Greater trochanter fracture; Gross hematuria; Hemorrhag ic cystitis; Bursitis of right elbow; Tobacco dependence; Diabetes; Closed fract ure of head of right femur; and Elevated troponin on his problem list. ALLERGIES Penicillins; Codeine; Doxycycline; Phenobarbital; Piperacillin-tazobactam; Sulfa methoxazole-trimethoprim; Terazosin; and Valium [diazepam] HOME MEDICATIONS Patient's Home Medications Current Home Medications ALBUTEROL (PROAIR HFA) 90 MCG/ACTUATION INHALATION HFAA INHALER [place] ALKALOIDS-OPIUM (B&O 15A) 16.2-30 MG SUPPOSITORY BETHANECHOL (URECHOLINE) 25 MG ORAL TABLET CLOPIDOGREL (PLAVIX) 75 MG ORAL TAB ESOMEPRAZOLE (NEXIUM) 20 MG ORAL CPDR EZETIMIBE (ZETIA) 10 MG ORAL TABLET FENOFIBRATE NANOCRYSTALLIZED (TRICOR) 145 MG ORAL TABLET FLUOXETINE (PROZAC) 20 MG ORAL TABLET FLUTICASONE (FLOVENT HFA) 110 MCG/ACTUATION INHALATION AERO LORATADINE (CLARITIN) 10 MG ORAL TABLET LORAZEPAM (ATIVAN) 1 MG TABLET MAGNESIUM OXIDE 250 MG ORAL TAB METOPROLOL SUCCINATE ER 24 HOUR (TOPROL-XL) 25 MG ORAL TABLET MULTIVITAMIN (DAILY-DAVID) ORAL TABLET NITROGLYCERIN (NITROSTAT) 0.4 MG TABLET, SUBLINGUAL OLANZAPINE (ZYPREXA) 2.5 MG TABLET OXYCODONE-ACETAMINOPHEN (PERCOCET) 5-325 MG TABLET PHENYTOIN (DILANTIN) 200 MG ORAL CAP PIOGLITAZONE (ACTOS) 30 MG ORAL TABLET PROCHLORPERAZINE MALEATE (COMPAZINE) 10 MG TABLET RAMIPRIL (ALTACE) 5 MG CAPSULE SIMVASTATIN (ZOCOR) 40 MG ORAL TABLET TAMSULOSIN (FLOMAX) 0.4 MG ORAL CAPSULE TRAZODONE (DESYREL) 50 MG TABLET ZOLPIDEM (AMBIEN) 10 MG ORAL TABLET Medications Modified during this Encounter Medications Discontinued during this Encounter Objective PHYSICAL EXAM INITIAL VS BP: (!) 92/51 (07/04/181624), Heart Rate: 81 bpm (07/04/181624), Resp: 20 (1624), Temp: 97.5 F (36.4 C) (07/04/181627), Temp src: Oral (07/04/181627), SpO2: 97 % (07/04/181624), Height: 6' (182.9 cm) (07/04/181627), Weigh t: 63.5 kg (140 lb) (07/04/181627), BMI (Calculated): 18.98 (07/04/181627) No LMP for male patient. Physical Exam Constitutional: He is oriented to person, place, and time. He appears well-devel oped and well-nourished. No distress. PT IS IN NAD. HENT: Head: Normocephalic and atraumatic. Mouth/Throat: Oropharynx is clear and moist. Eyes: Pupils are equal, round, and reactive to light. Conjunctivae and EOM are n ormal. Right eye exhibits no discharge. Left eye exhibits no discharge. PT HAS A DROOPY EYE ON THE RIGHT SIDE, WHICH HE REPORTS IS CHRONIC. Neck: Normal range of motion. Neck supple. Cardiovascular: Normal rate, regular rhythm, normal heart sounds and intact dist al pulses. Exam reveals no gallop and no friction rub. No murmur heard. REGULAR RATE AND RHYTHM. Pulmonary/Chest: Effort normal and breath sounds normal. No respiratory distress . He has no wheezes. He has no rales. LUNGS CLEAR. Abdominal: Soft. Bowel sounds are normal. He exhibits no distension. There is no tenderness. There is no rebound and no guarding. ABDOMEN SOFT AND NON TENDER. Musculoskeletal: He exhibits tenderness. He exhibits no edema or deformity. LEFT HIP TENDERNESS, WITH PAINFUL ROM. DISTAL PULSES INTACT. SENSATION INTACT. N EUROVASCULARLY INTACT. Lymphadenopathy: He has no cervical adenopathy. Neurological: He is alert and oriented to person, place, and time. Skin: Skin is warm and dry. Capillary refill takes less than 2 seconds. No rash noted. He is not diaphoretic. No erythema. No pallor. Psychiatric: His behavior is normal. Thought content normal. Nursing note and vitals reviewed. DIAGNOSTICS LAB: No data to display RADIOLOGY: No orders to display No orders to display EKG: PROCEDURES Procedures MEDICAL DECISION MAKING AND PLAN OF CARE DDX: FRACTURE, DISLOCATION, CONTUSION, SPRAIN, ETC. REVIEWED CHART, LABS, AND RADIOLOGY STUDIES FROM [facility]. MDM PT WAS SEEN AND EVALUATED AT [facility] AND HAD XRAYS THAT REVEALED LEF T HIP FX. 1700: PT HAS BEEN DOWNGRADED TO A LEVEL 3 TRAUMA. 1705: DISCUSSED CASE WITH OMAR MCNULTY, APC, WHO WILL ACCEPT ADMISSION OF PT ON BEHALF OF DR. BUSCH, HOSPITALIST. Medications Administered During the ED Stay from 07/04/2018 1617 to 07/04/2018 1 747 Date/Time Order Dose Route Action 07/04/2018 1659 sodium chloride 0.9% bolus solution 1,000 mL 1,000 mL IV New B ag 1719: DISCUSSED CASE WITH DR. HANSEN, [employer] TEACHER, WHO WILL ACCEPT ADMI SSION OF PT. 1735: OMAR MCNULTY IN ED TO SEE AND ADMIT. PT HAS NO C/O EXCEPT HIP PAIN. . New Prescriptions for this Encounter LAST VS BP: (!) 93/52 (07/04/181714), Heart Rate: 79 bpm (07/04/181714), Resp: 16 (1714), Temp: 97.5 F (36.4 C) (07/04/181627), Temp src: Oral (07/04/181627), SpO2: 98 % (07/04/181714) CLINICAL IMPRESSION Final diagnoses: [S72.001A] Closed right hip fracture (Primary) [R74.8] Elevated troponin DISPOSITION, EDUCATION AND MEDICATION RECONCILIATION Medications reconciled. See after visit summary for patient education on discha rged patients. ED Disposition ED Disposition Condition User Date/Time Comment Admit Kentrell Burroughs DO Mon Jul 04, 2018 4:[address] GO REVIEWED LABS, RADIOLOGY STUDIES, VITAL SIGNS, NURSING NOTES, AND DISC USSED WITH PT. I AGREE WITH NURSING NOTES UNLESS NOTED IN BODY OF THIS RECORD. ATTESTATION STATEMENTS By signing my name below, I, SARA, attest that this documentation has been prep ared under the direction and in the presence of Dr. AUSTEN GO DO. Electronically Signed: SARA Christiano BRADY. 07/04/2018 4:49 PM ATTESTATIONS The scribe's documentation has been prepared under my direction and personally r eviewed by me in its entirety. I confirm that the note above accurately reflects all work, treatment, procedures, and medical decision making performed by me. Mg Go DO Portions of this documentation may have been created by an [employer] software. Effort has been done to assure accuracy of card tender. Any obvi ous errors or omissions should be clarified with the author of the document. documented in this encounter Miscellaneous Notes * Care Plan - Le Lockhart Manager Planning - 07/09/2018 1:36 PM CDT Problem: Physical Mobility, Impaired Goal: Mobility goal: Improve ambulation by discharge 1. Pt will demonstrate ability to ambulate 50ft with step to gait while maintain ing weight bearing precautions with use of rolling walker, no greater than min A x1 to facilitate ability to ambulate to and from the bathroom with nursing staff and decrease risk for falls 2. Pt will demonstrate grossly 4+/5 throughout LLE to facilitate improved abilit y to maintain weight bearing precautions and decrease risk for falls. Outcome: Progressing [facility] Main: Acute: Acute Physical Therapy Treatment 07/09/2018 Room: [address] [place] [address] Name: Oliverio Dalton Age: 67 y.o. Date of : 1950 Insurance: Payor: [employer] / Plan: [employer] PPO MCR / Product Type: Medicare Capitation / Confirmed patient's identification of name and date of : on name band, by patient report Consent to treatment given by patient and nurse with results as follows: PT Treatment Minutes Therapy Start Time: 934 (07/09/18934) Therapy Stop Time: 1000 (07/09/18934) Total Timed Treatment (min): 25 (07/09/18934) Total Treatment Time (min): 25 (07/09/18934) Minute breakdown: Individual (07/08/18 1050) Subjective Information Provided by: patient. Pt reports mobility easier after WWR lowered Pain: Refer to Doc. Flowsheet for documented pain levels. R thigh, not rated Treatment: Functional Mobility: 7 = Ind, 6 = Mod Ind, 5 = Sup, 4 = Min assist, 3 = Mod assist, 2 = Max as sist, 1 = Total assist, 0 = N/A Level of Assist (see cedeno above) Bed Mobility: Lying down to sitting on EOB (supine<>sit) Comments: HOB elevated, R side of bed, increased time 5 Transfers: Bed to Chair (Including sit to/from stand) Comments: verbal cues for technique 5 Gait: Ambulation on level surfaces with rolling walker x 15 feet with supervis ion Comments/Deviations: Patient presents with decreased base of support, poor envi ronmental awareness, decreased amish, decreased step height, decreased step le ngth, absent heel strike, absent toe off, decreased stance time on R LE during g ait 5 Walking Distance: 15 (x2 to attmtpes) feet Stairs: NA Comments: Gait training x2 with seated rest between gait. WWR height adjusted, p t with improved WB compliance 2 (see cedeno below) 7= 201+ ft, 6= 151-200ft, 5= 101-150ft, 4= 51-100ft, 3= 31-50ft, 2= 11-30ft, 1= 1-10ft Patient required verbal instruction and education for use of equipment, for b ilateral UE push-up for sit to stand, for assistive device placement with regard s to feet/trunk, for proper techniques to maintain WB status, to increase knee f lexion during swing phase and for proper posture. Additional Treatment Balance Training/Exercise: Fair, improving to fair + with improved WWR fit Vitals: Patient on room air Assessment and Plan Patient is progressing towards care plan goals and does continue to require s killed PT. Skilled intervention today provided as is needed for pt to improve l evel of independence with functional tasks and progress toward achievement of go als established for Oliverio Dalton's individualized care. Pt demonstrates increased activity tolerance this treatment. Will continue with plan of care to progress toward previously established goa ls, unless discharged from the acute care facilty.. Focus for subsequent session: balance training, equipment training, function al transfer training, gait training, home safety instruction and strengthening e xercises. Discharge Recommendation Anticipated discharge disposition: Inpatient Rehabilitation Facility as carlos nt has the potential to make progress toward goals, to participate in one hour o f Physical Therapy, and is actively engaged in therapy Equipment needed at discharge: unknown at this time Precautions Patient precautions: DVT and fall precautions, IV Weight Bearin% PWB R LE Activity Order: No restriction to activity ordered Education/Training Provided Method: demonstration and verbal Provided to: patient Regarding Gait Training, Transfer Training, Discharge Plan, safety awareness Response to learning: will need further training in formal therapy sessions a nd verbalizes understanding Disposition Before treatment session: Patient found lying in bed. After treatment session: Patient left lying in bed with call light and phone within reach and RN present in room. Patient was none. Prior to PT session a thorough chart review was completed, including prior [facility] notes, as applicable. Further treatment notes and therapeutic goals can be found in Care Plan Notes . Thank you for this referral, Le Lockhart, Manager Planning X [phone] Electronically signed by eL Lockhart Manager Planning at 2017 1:36 PM CDT * Care Plan - Nikky Tavares RN - 07/08/2018 5:08 PM CDT Patient cleared for discharge per physician but waiting for placement. Possible discharge tomorrow. Patient has c/o pain to right hip rated 9/10 at time of as sessment. PRN pain medication administered several times this shift. Encourage d patient to take oral pain medication only but required IV medication for break through pain. Dressing to right lateral thigh dry and intact and BRENDON bandage re wrapped d/t loosening after therapy. Patient currently resting quietly in bed a t this time without any questions or concerns. Will continue to monitor. * Care Plan - Con Lopes, Conche Operator - 07/08/2018 1:04 PM CDT Problem: Self-Care Deficit Goal: Self care goal: Improve ability to perform self care activities by dischar ge Patient will complete stand pivot transfer to [facility] with supervision using FWW. Outcome: Progressing Goal: Self care goal: Improve ability to perform self care activities by dischar ge Patient will complete grooming activity while seated EOB with supervision. Outcome: Progressing Goal: Self care goal: Improve ability to perform self care activities by dischar ge Patient will improve gross B UE strength to 4-/5. Outcome: Progressing [facility] [address] [facility] [place] [address] Acute Occupational Therapy Treatment Session 07/08/2018 Room: [address] [place] [address] Confirmed patient's identification of name and date of : on name band, by patient report Time: 3948-6024 Reviewed prior therapy treatment notes, as applicable. Consent to treatment given by patient and nurse with results as follows: Patient precautions: DVT, fall precautions and oxygen precautions Weight Bearing: partial weight bearing 50% on R LE Other pertinent findings: IV Subjective Pain: Refer to Doc Flowsheet for documented pain levels. Pt stating pain in RLE this date. Pt stating he does not have a home health aide at this time. He states he has had one recently but not at this time. Objective Mobility: Pt performs bed mobility supine to sit with SBA for safety with balanc e. Pt performs sit to stand from EOB with Min A for stabilization and maintainin g PWB 50% on RLE. Pt performs functional mobility to ambulate to recliner approx imately 5 feet with Min A and RW for stabilization and maintaining PWB 50% on RL E. Pt performs stand to sit with Min A for slow controlled lowering. ADLs: Pt performs functional mobility to recliner and various transfers in prepa ration for toileting transfer and to increase overall functional ADL endurance. Pt receiving instruction in LB dressing AE as pt stating he has a sock aide and gear inspector at home. Exercise:BUE strengthening HEP with orange theraband. Patient performed 1 set/s of 15-20 repetitions of the following exercises to imp rove functional activities and functional ADL endurance. shoulder flexion shoulder extension shoulder horizontal abduction shoulder horizontal adduction elbow flexion elbow extension forward punches Exercises performed active with supervisionfor recall and proper execution. Impressions: Pt demonstrating increased independence with ADLs, transfers, functional mobilit y and BUE strengthening HEP. Pt was in good spirits and motivated for session. P t demonstrating increased functional activity tolerance this date. Pt presenting with decreased pain per pt report, thus increasing functional independence. Pt would benefit from continued skilled OT services for increasing overall function al independence and activity tolerance. Plan Plan for Subsequent Sessions: Continue with POC as written. Education: Method: demonstration and verbal Provided to: patient Regarding ADLs, transfers, functional mobility and BUE strengthening HEP. Response to learning: demonstrated understanding, will need further training in formal therapy sessions and verbalizes understanding Anticipated discharge disposition:Home with 24-hour assistance and home health o ccupational therapy Equipment recommended for discharge: to be determined Disposition at End of Treatment Session: nursing has been notified of patient's disposition and seated in chair with call light within reach Thank you, Nabeel JENSEN/Palak Electronically signed by Con Lopes, Conche Operator at 06/10 1:04 PM CDT * Care Plan - Mel Sutton, Manager Planning - 07/08/2018 11:53 AM CDT Problem: Physical Mobility, Impaired Goal: Mobility goal: Improve transfer ability by discharge 1. Pt will demonstrate ability to perform all bed mobility with supervision assi st to facilitate increased independence and return to PLOF. 2. Pt will demonstrate ability to perform supine-sit maintaining weight bearing precautions with CGAx1 for safety to facilitate improved functional mobility and safety with upright activities Outcome: Progressing Goal: Mobility goal: Improve ambulation by discharge 1. Pt will demonstrate ability to ambulate 50ft with step to gait while maintain ing weight bearing precautions with use of rolling walker, no greater than min A x1 to facilitate ability to ambulate to and from the bathroom with nursing staff and decrease risk for falls 2. Pt will demonstrate grossly 4+/5 throughout LLE to facilitate improved abilit y to maintain weight bearing precautions and decrease risk for falls. Outcome: Progressing [facility] [place] [facility] Main: Acute: Acute Physical Therapy Treatment 07/08/2018 Room: [address] [place] [address] Name: Oliverio Dalton Age: 67 y.o. Date of : 1950 Insurance: Payor: [employer] / Plan: [employer] [facility] [place] MCR / Product Type: Medicare Capitation / Confirmed patient's identification of name and date of : on name band, by patient report Consent to treatment given by patient and nurse with results as follows: PT Treatment Minutes Therapy Start Time: 1050 (07/08/18 1050) Therapy Stop Time: 1144 (07/08/18 1050) Total Timed Treatment (min): 54 (07/08/18 1050) Total Treatment Time (min): 54 (07/08/18 1050) Minute breakdown: Individual (07/08/18 1050) Subjective Information Provided by: patient. Patient notes some pain in his hip from sitting in the chair. Patient states he will do what it takes to get to rehab Pain: Refer to Doc. Flowsheet for documented pain levels. Treatment: Functional Mobility: 7 = Ind, 6 = Mod Ind, 5 = Sup, 4 = Min assist, 3 = Mod assist, 2 = Max as sist, 1 = Total assist, 0 = N/A Level of Assist (see cedeno above) Bed Mobility: Lying down to sitting on EOB (supine<>sit) Comments: sit to supine-for LEs 4 Transfers: Bed to Chair (Including sit to/from stand) Comments: pushes from chair arm rests 4 Gait: Ambulation on level surfaces with rolling walker x 15 feet with minimal assistance Comments/Deviations: Patient presents with flexed posture, decreased amish, d ecreased step height, decreased step length, absent heel strike, absent toe off, decreased stance time on R LE during gait 4 Walking Distance: 15 feet Stairs: Comments: 50% partial WB on R LE 2 (see cedeno below) 7= 201+ ft, 6= 151-200ft, 5= 101-150ft, 4= 51-100ft, 3= 31-50ft, 2= 11-30ft, 1= 1-10ft Patient required verbal instruction and education for use of equipment, for b ilateral UE push-up for sit to stand, for proper techniques to maintain WB statu s, for proper posture, to decrease reliance on assistive device, for energy cons ervation and to use safe techniques and posture during ADLS and functional trans fers. Additional Treatment Therapeutic exercises: Patient performed 1 set/s of 10 repetitions of the fol lowing exercises with minimal assistance to improve circulation, functional mobi lity, & strength: supine: ankle pumps, gluteal sets, heel slides, hip abduction and hip adduct ion sitting: ankle pumps, hip flexion, hip abduction, hip adduction and long arc quads Balance Training/Exercise: Good sitting, fair standing with RW Vitals: Patient on room air At Rest: HR: O2 Sat: % During/After: HR: activity O2 Sat: % Assessment and Plan Patient is progressing towards care plan goals and does continue to require s killed PT. Skilled intervention today provided as is needed for pt to improve l evel of independence with functional tasks and progress toward achievement of go als established for Oliverio Dalton's individualized care. Patient sitting in chair when therapist arrives. Patient agrees to therapy. P atient completes LE exercises in sitting with instructions for technique and slo w controlled lowering on LAQ. Patient completes transfers with min assist. Carlos wilhelm educated on gait training and WB status. Patient requires min assist for hermann nce and instructions to maintain WB. Patient completes LE exercises in supine. P atient left with call light in reach. At this time, due to patient's increased a ctivity tolerance, patient would benefit from therapy at an inpatient rehab befo re returning home. Will discuss with supervising therapist and change patient's discharge recomm nedation Focus for subsequent session: balance training, equipment training, function al transfer training, gait training and strengthening exercises. Discharge Recommendation Anticipated discharge disposition: Inpatient Rehabilitation Facility as carlos wilhelm has the potential to make progress toward goals, to participate in one hour o f Physical Therapy, and is actively engaged in therapy Equipment needed at discharge: to be evaluated for/provided by next level of care facility Precautions Patient precautions: DVT and fall precautions, IV Weight Bearing: PWB 50% RLE Education/Training Provided Method: demonstration and verbal Provided to: patient Regarding HEP/Therapeutic Exercises, PT Plan of care, Gait Training, Transfe r Training, Discharge Plan, safety awareness, pursed lip breathing and energy co nservation Response to learning: will need further training in formal therapy sessions Disposition Before treatment session: Patient found sitting in chair. After treatment session: Patient left lying in bed with call light within sue ch. Prior to PT session a thorough chart review was completed, including prior erapy notes, as applicable. Further treatment notes and therapeutic goals can be found in Care Plan Notes . Thank you for this referral, Mel Sutton, Manager Planning X [phone] * Care Plan - Winnie Hendricks RN - 07/08/2018 5:03 AM CDT INTERDIS PW: HIP FRACTURE/HIP REPLACEMENT-ADULT Pathway Pre-Op Hemodynamic: Temp less than 100.4F(38C) and greater than 96.8F(36C), HR le ss than 90/min, Resp less than 20/min, Systolic BP greater than 90 mmhg and less than 150 mmhg, WBC less than 12K and greater than 4K or bands less than 10%. Me t Neurovascular: Affected extremity pulse continues to be palpable/doppled a nd surrounding skin sensation intact. (No numbness, tingling, coolness, mottling ). Met Fluid Management: The patient will maintain proper hydration as evidence b y a urine output of a minimum of 240 ml/ 8 hours. Met INTERDIS PW: SKIN/PRESSURE INJURY PREVENTION Pathway Day 1 Skin Integrity/Integumentary: Interventions initiated to maintain intact s kin. Patient maintains intact skin with Giorgi Score maintained or improved. Met Nutrition Management: Patient/health care delegate understands importance of adequate protein and fluid intake. Met Bladder & Bowel Movement: Moisture management for incontinence initiated and maintained or patient is continent of urine/stool. Met Activity/Rehab: Patient/health care delegate understands repositioning/off loading techniques or patient moves independently. Met Maple Pathway: Adult and Obstetrics Day 1 Patient, family, or healthcare designee is participating in individual car e plan process Met Patient, family, or healthcare designee understands side effects of medica tions Met Infection Risk/Actual Infection Risk/Actual: Infection prevention, control, or resolution by disch arge Progressing Pain, Potential/Actual Verbalizes/displays acceptable comfort level or baseline comfort level Progr essing Safety/Fall Safety/Fall: Absence of fall, injury, harm during hospitalization Progressin g Patient resting comfortably. Denies needs, pain or discomfort. Call light in sue ch. Dressing to right hip remains dry and intact. * Therapy Evaluation - René Nicolas, Physical Therapist - 07/07/2018 9:05 AM CDT [facility] Main: Acute: For questions regarding this patient's status or care, please call [phone]. Acute Physical Therapy Evaluation 07/07/2018 Room: [address] [place] [address] Name: Oliverio Dalton Age: 67 y.o. Date of : 1950 Insurance: Payor: [employer] / Plan: [employer] [facility] MCR / Product Type: Medicare Capitation / Patient Class: Inpatient Confirmed patient's identification of name and date of : on name band, by patient report Consent to treatment given by patient and nurse with results as follows: Onset of illness/injury or date of surgery: 07/04/2018 PT Evaluation Time PT Evaluation Start Time: 09 (07/07/18 0900) PT Evaluation Stop Time: 09 (07/07/18 0900) PT Evaluation Total Minutes: 40 (07/07/18 0900) Physical Therapy Assessment Therapeutic Diagnosis: Oliverio Dalton is a 67 y.o. male referred for physica l therapy. Patient presents with balance deficits, decreased activity tolerance , decreased range of motion, decreased strength, gait disturbance, limited motiv ation, limited safety awareness, medical complexity, pain and risk for falls whi ch limits his independence with ADLs, transfers, functional mobility, and gait/a mbulation. PT provided increased time for education regarding rehabilitation pro cess and for educating pt in gait training, use of FWW, transfer technique, and cuing for 50% weight bearing status, and educating pt that if pain is provoked t oo much that he may reduce amount of pressure into leg. Pt has good response wit h pre ambulatory training with biofeedback for PT and pt with for weight shiftin g to ensure pt has no greater than 50% weight bearing. Pt demonstrates gross str ength deficits, is guarded, and requires constant verbal cuing for each process for 5 ft ambulation from bed to chair. Pt reports exacerbation of pain, but is d ecreased following seated rest break while positioning for comfort and nursing s taff notified of pt's reports of pain. PT informed nursing staff regarding clini donovan findings of recommendation for two person assist for ensuring weight bearing compliance and for improving patient safety. 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 Skilled Physical Therapy is recommended to address: ADL training, balance tra ining, equipment training, functional transfer training, gait training, home saf ety instruction, neuromuscular re-education, patient/family education, strengthe mariana exercises and ROM Rehabilitation Potential: Fair Participation level: Good See Care Plan for goals established during initial evaluation, to be met by mg snell from acute care facility. Mobility Precautions Patient precautions: DVT, fall precautions and 50% weight bearing precaution s Weight Bearing: PWB 50% per Dr. Hansen's note on 07/04 and per Valdez gibson on 07/07 Prior Level of Function Prior level of function: maximal assistance Patient does have a history of falls. Assist available at home: Pt has around the clock care per subjective repor t and chart review Home environment: 1-Story home, Ramped and Tub-Shower Pt reports he was able to walk around in his home, and walk to and from his sancho barboza, sometimes. Recommendations Discharge Recommendation: Unable to discern at this time, secondary to pt's d ecreased activity tolerance secondary to pain exacerbation. Pt does have good po tential for progression towards goals and is willing to participate despite anti cipation of pain exacerbation Equipment recommended at discharge: unknown at this time. At this time, patient requires additional training. Plan of Care Therapy Frequency: Will follow 6 times per week, daily Discussed PT plan of care with the patient, who is in agreement, and also wit h their RN Subjective Information Provided by: patient and medical chart Pain: Refer to Doc Flowsheet for documented pain levels. PT notified nursing regarding pain reports Patient/Family Goals Statement: Go home Comments: Pt reports the PLOF and previous function section, and states that he was not aware that he is only allowed to put 50% of his weight through his le g, and thinks he might have been putting more on it before. Pt reports increased pain with any movement, and that he has someone at home to help him all the donis e. Cognition Level of alertness: oriented Orientation: Person, Place, Date and Situation Ability to follow commands: Fair Ability to Learn: Fair Safety Awareness: fair and slowed processessing speed Objective Information Upper Extremity Function: Defer to OT Lower Extremity Function: Left: ROM: normal Strength: Grossly 4-/5 Right: ROM: mildly impaired secondary to pain provocation with movement Strength: moderately impaired for ankle, and knee/hip strength NT secondary t o pt's already exacerbated pain levels Neuro Status: Muscle Tone: normal Coordination: mildly impaired Sensation: normal Cranial nerve examination reveals R sided ptosis, facial droop on R, rightward d eviated tongue, but no apparent UE strength differences upon assessment. Babinski negative bilaterally Hoffmans negative bilaterally Clonus negative bilaterally Gait/Stairs Ambulation distance of 5 feet with rolling walker with moderate assistance x1 with increased verbal and tactile cues, as well as physical assistance for gonzalo gement of AD, and for ensuring weight bearing compliance, with pt markedly leani ng towards the L side, with pt ambulating with step to gait per PT instruction Vitals Pre Treat 123/64mmHg/////Post treat 132/68mmHg HR 80/88 BPM, and O2 >95% for all assessments Balance Sitting Static:independent Sitting Dynamic: independent Standing Static: supervision Standing Dynamic: minimal assistance for ensuring weight bearing precautions and for CGAx1 for safety Functional Mobility Rolling: supervision Scooting: supervision Supine to sit: minimal assistance for UE pull going to the R Sit to supine: did not perform Sit to stand: minimal assistance Bed to chair: moderate assistance Education Method: demonstration and verbal Provided to: patient Regarding weight bearing precautions, prevention of DVT, positional managemen t for pain, gait training for step to gait with pt able to teach back process, . Response to learning: needs reinforcement, will need further training in form al therapy sessions and verbalizes understanding Disposition Before treatment session: Patient found lying in bed. After treatment session: Patient left body alarm in place and sitting in mitchell r with call light and phone within reach Current Diagnoses Patient Active Problem List Diagnosis Code Chest pain, chronic R07.9 Coronary artery disease involving [place] coronary artery of [place] heart wit h angina pectoris I25.119 Peripheral arterial disease I73.9 Leg edema, left R60.0 Dyspnea, chronic R06.00 COPD (chronic obstructive pulmonary disease) J44.9 Hypertension I10 Hyperlipidemia with target LDL less than 70 E78.5 Depression F32.9 Acute blood loss anemia D62 Hematuria R31.9 Greater trochanter fracture S72.113A Gross hematuria R31.0 Hemorrhagic cystitis N30.91 Bursitis of right elbow M70.31 Tobacco dependence F17.200 Diabetes E11.9 Closed fracture of head of right femur S72.051A Elevated troponin R74.8 Epilepsy G40.909 Past Medical History has a past medical history of Anxiety; Arthritis; CAD S/P percutaneous coronary angioplasty; CHF (congestive heart failure); COPD (chronic obstructive pulmonar y disease); Depression; Epilepsy (07/05/2018); GERD (gastroesophageal reflux dise ase); Hyperlipidemia LDL goal < 70; Hypertension; and Peripheral vascular disease. Prior to PT session a thorough chart review was completed including prior PT notes as applicable. Further treatment notes and therapeutic goals can be found in Care Plan Notes . Thank you for this referral, René Nicolas Physical Therapist G-Codes: Initial Status: G8978 - Mobility current status: Mobility: Walking and moving around functional limitation, current status, at therapy outset and at reportin g intervals CL: At least 60% but less than 80% impaired, limited or restricted Goal Status: G8979 - Mobility goal status: Mobility: Walking and moving aroun d functional limitation, projected goal status, at therapy outset and at reporti ng intervals, and at discharge or to end reporting CJ: At least 20% but less shruti n 40% impaired, limited, or restricted * Care Plan - Kristin Clifton RN - 07/07/2018 4:09 AM CDT Patient R leg dressing dry and intact. PRN IV and PO pain medication given this shift. No fluids running. Patient on room air. Patient self cathed this shift, p atient self cath at home BID. VSS. Call light within reach, will continue to mon itor for changes. * Care Plan - Hector Wild RN - 07/06/2018 6:06 PM CDT Pt worked with PT/OT this shift. Pt sat in chair for some of shift. Patient was able to transfer with moderate assist back to bed. RA, VSS. Patient pain control led with PRN pain medication. No other complaints at this time. Call light withi n reach. Will continue to monitor. * Therapy Evaluation - Carina Keith, Occupational Therapist - 07/06/2018 7:42 AM CDT [facility] [address] [place] [id number] Occupational Therapy Evaluation Name:Oliverio Dalton Age: 67 y.o. : 1950 Eval Date: 07/06/2018 Diagnosis: The primary encounter diagnosis was Closed right hip fracture. A diag nosis of Elevated troponin was also pertinent to this visit. Patient location: [facility] Time: 1020 - 1052 (32 minutes) CHART REVIEW: Onset of illness/injury or date of surgery: 07/04/2018 Referring physician: Zachary Hansen DO Pertinent history of current problem: Pt admitted with R femoral neck fx after s ustaining a fall. Pt reports he was reaching for something in the bathroom when he fell landing on his R side. Pt with h/o L hip fx. Pt states he has low blood pressure which is normal for him. Pt had troponin levels of 43 before transferri to [facility] for Ortho consult. Pt denies SOB or CP. Pt underwent R hip pi nning on 07/05/18. Pertinent past medical history: has a past medical history of Anxiety; Arthriti s; CAD S/P percutaneous coronary angioplasty; CHF (congestive heart failure); CO PD (chronic obstructive pulmonary disease); Depression; Epilepsy (07/05/2018); GE RD (gastroesophageal reflux disease); Hyperlipidemia LDL goal < 70; Hypertension; and Peripheral vascular disease. Patient precautions: DVT, fall precautions and oxygen precautions Weight Bearing: partial weight bearing 50% on R LE Other pertinent findings:ulloa catheter, IV and 1 L O2 SUBJECTIVE: Subjective information provided by:chart review and the patient Patient comments: Pt reports he received therapy in [place] following his L hi p surgery. Pt reports he was able to walk 4-5 steps by himself using a walker pr ior to admission. Prior level of function: Pt requires assistance with ADLs and IADLs at baseline. Pt typically uses a w/c for mobility, but has a caregiver who assists him with ambulating with a walker. Assist available at home: lives alone - Pt has caretakers through [address] They come 9 hours during the day and 5-6 hours at night. They as sist with cooking, cleaning, bathing, dressing, and transferring as needed. Home environment:1-Story home DME already in home: wheelchair, walker, lift chair, shower chair, O2 at night Patient Goal Statement: Return home. Pain Rating: See Doc Flowsheet for details. OBJECTIVE: Level of alertness: lethargic Orientation: Oriented to Person, Place, Date and Situation Ability to Learn: Good Attention: Able to sustain Safety Awareness: Good STM:intact LTM: intact Vision: intact with lenses Hearing:intact UE Function: Hand dominance:right handed Left UE: ROM: within normal limits Strength: adequate ROM, decreased strength Right UE: ROM: within normal limits Strength: adequate ROM, decreased strength Sensation: Right:intact Left:intact Muscle Tone:Right normal Left normal Coordination:Right: intact Left :intact Functional Mobility: Sitting Balance: Good. Sits EOB independently. Standing Balance: Fair - Stand pivots with FWW and min A. Supine-sit:minimal assistance to lift trunk and maneuver R leg to EOB. Sit-stand: minimal assistance x 2 Bed-chair transfer: minimal assistance to stand pivot from bed to chair using FW W. Pt experienced 1 posterior LOB which was corrected with mod A using gait belt . Toilet Transfer: did not perform ADL: Feeding:did not perform Grooming: supervision to wash face while seated EOB. Bathing:did not perform UE Dressing:did not perform LE Dressing:total assistance Toileting:did not perform ASSESSMENT: Impressions: Pt admitted S/P R hip pinning after sustaining a R femoral fx. Pt i s now 50% PWB with R LE. Pt requires assistance with ADLs at baseline and report s he only ambulates 4-5 steps on a daily basis with assistance. Pt able to compl ete stand pivot transfer with min to mod A using FWW this date with one posterio r LOB noted. Pt would benefit from continued skilled OT services in the acute ca re setting to address difficulty with ADLs/bathroom safety, decreased upper extr emity strength/ROM limiting function, need for energy conservation instruction, self care deficits, mobility deficits and decreased activity tolerance. G-Codes: Initial Status: G8987 - Self care current status: Self care functional limtia tion, current status, at therapyepisode outset and at reporting intervals CL: At least 60% but less than 80% impaired, limited or restricted Goal Status: G8988 - Self care goal status: Self care functional limitation, projected goal status, at therapy episode outset, at reporting intervals, and at discharge or to end reporting CK: At least 40% but less than 60% impaired, limi roma or restricted Rehabilitation Potential: Fair PLAN: Therapy Frequency: Will follow 5 days per week. Interventions: ADL training, balance training, equipment training, functional t ransfer training, home safety instruction, patient/family education, strengtheni ng exercises and ROM Anticipated discharge disposition:Home with 24-hour assistance and home health o ccupational therapy - Pt is open to therapy options only. Equipment recommended for discharge: Pt has all recommended equipment. Goals: See Care Plan section of chart for goals OT plan of care discussed with:patient Patient's disposition at conclusion of evaluation:sitting in chair, call light a nd phone left within patient's reach, bed/body alarm placed on patient, nursing has been notified of patient's disposition Thank you for this referral, Carina Keith, Occupational Therapist * Care Plan - Hector Wild RN - 07/05/2018 6:28 PM CDT VSS. Free from fall and injury. IV antibiotics given per emar. Call light within reach. Will continue to monitor. * Care Plan - Vinny Marika Alvarez, CASE THERAPIST - 07/04/2018 8:56 PM CDT Problem: Discharge Planning Goal: Identify discharge needs upon admission and through discharge Discharge plan is Home with HH Initial Discharge Planning Assessment completed. call worker visited with patient and three sisters in ED room, and discussed C are Management role and discharge planning. Cultural needs identified/ language barriers: none Prior to admission, patient received moderate assistance at home. Pt receives as sistance with ADL's. 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 Has 9 hours during day and 5-6 hours dur ing night. Caretakers assist with cooking, cleaning, transfers as needed, and valero pervise bathing and dressing. Patient's regular day time arc and gas welder has been on m edical leave but will be returning soon and regularly helps patient to walk with walker. Patient normally wc bound with independent transfers. Next of kin/contact verified as Hellen Veloz, sister/DPOA . They can be r eached at [phone]. PCP verified as Dr. Claus Couch. Patient's insurance verified as [email or web address] and [employer] Patient does have prescription coverage. Preferred Pharmacy is [facility] pharmacy DME: Wheelchair, walker, lift chair, shower chair, o2 at night serviced through [address] DME Transportation will be provided by: Pt's sisters pending clinical course Comments/Discharge Needs: Spoke with pt's sisters regarding possible SNF/SB for rehab upon dc. Patient's sister/DPOA adamantly refuses. States patient broke hi p last March and was discharged to [facility] where he did not receive adequat e care and then to [facility] for three months. Pt is in pain and unab le to communicate at the time of this conversation but sister/DPOA refuses at th is time. States they will be open to HH therapy only. Care [facility] [employer] services contacted regarding admission- notified Ashtyn. Care Management will continue to follow and assist as needed. Marika Casillas LMSW phone: [phone] documented in this encounter Plan of Treatment Not on filedocumented as of this encounter Procedures Comments Procedure Name Priority Date/Time Associated Diag nosis TELEMETRY REPORT 07/13/2018 1:44 PM CDT TELEMETRY REPORT 07/13/2018 11:39 AM CDT POC GLUCOSE Routine 07/09/2018 8:26 AM CDT POC GLUCOSE Routine 07/08/2018 9:01 PM CDT POC GLUCOSE Routine 07/08/2018 11:56 AM CDT POC GLUCOSE Routine 07/08/2018 7:34 AM CDT CBC WITH DIFFERENTIAL Routine 07/08/2018 4:07 AM CDT POC GLUCOSE Routine 07/07/2018 9:17 PM CDT POC GLUCOSE Routine 07/07/2018 5:13 PM CDT POC GLUCOSE Routine 07/07/2018 12:35 PM CDT POC GLUCOSE Routine 07/07/2018 8:15 AM CDT CBC WITH DIFFERENTIAL Routine 07/07/2018 4:00 AM CDT BASIC METABOLIC PANEL Routine 07/07/2018 4:00 AM CDT POC GLUCOSE Routine 07/06/2018 10:05 PM CDT POC GLUCOSE Routine 07/06/2018 5:49 PM CDT POC GLUCOSE Routine 07/06/2018 1:12 PM CDT POC GLUCOSE Routine 07/06/2018 8:05 AM CDT CBC WITH DIFFERENTIAL Routine 07/06/2018 2:17 AM CDT BASIC METABOLIC PANEL Routine 07/06/2018 2:17 AM CDT POC GLUCOSE Routine 07/05/2018 8:57 PM CDT POC GLUCOSE Routine 07/05/2018 5:59 PM CDT XR HIP 2 OR 3 VIEWS RT Routine 07/05/2018 1:45 PM CDT URINALYSIS WITH REFLEX Stat 07/05/2018 CULTURE 1:28 PM CDT URINE CULTURE Routine 07/05/2018 1:28 PM CDT POC GLUCOSE Routine 07/05/2018 12:51 PM CDT XR FLUORO GREATER THAN 1 Routine 07/05/2018 HOUR 12:37 PM CDT XR HIP 2 OR 3 VIEWS RT Routine 07/05/2018 12:34 PM CDT HIP PINNING 07/05/2018 Femur fracture, rig ht 11:21 AM CDT XR HIP 2 OR 3 VIEWS RT Stat 07/05/2018 9:26 AM CDT POC GLUCOSE Routine 07/05/2018 7:27 AM CDT CBC WITH DIFFERENTIAL Routine 07/05/2018 3:45 AM CDT BASIC METABOLIC PANEL Routine 07/05/2018 3:45 AM CDT POC GLUCOSE Routine 07/04/2018 10:57 PM CDT TROPONIN 6 HR, 5TH GEN Timed 07/04/2018 Study 10:57 PM CDT POC GLUCOSE Routine 07/04/2018 9:44 PM CDT TROPONIN 2 HR, 5TH GEN Timed 07/04/2018 Study 9:25 PM CDT CBC WITH DIFFERENTIAL Stat 07/04/2018 5:48 PM CDT BASIC METABOLIC PANEL Stat 07/04/2018 5:48 PM CDT TROPONIN BASELINE, 5TH Stat 07/04/2018 GEN 4:59 PM CDT PA ELECTROCARDIOGRAM, Stat 07/04/2018 COMPLETE 4:30 PM CDT documented in this encounter Results * TELEMETRY REPORT (07/13/2018 1:44 PM CDT) Narrative Performed At This result has an attachment that is n ot available. * TELEMETRY REPORT (07/13/2018 11:39 AM CDT) Narrative Performed At This result has an attachment that is n ot available. * POC GLUCOSE (07/09/2018 8:26 AM CDT) POC GLUCOSE 172 (H) 74 - 99 mg/dL [facility] [place] MANAGER FITNESS NAME Flori Teresa [facility] [place] Specimen Whole blood sample (specimen) Performing Organization Address [facility] CLIA # [id number] [place] [address] - [place] [address] [facility] LAB[facility]ORY [facility] CLIA # [id number] [place], [place] [address] - [place] [address] * POC GLUCOSE (07/08/2018 9:01 PM CDT) POC GLUCOSE 163 (H) 74 - 99 mg/dL [employer] LABORATORY SERVICES - [place] MANAGER FITNESS NAME liu thorpe [facility] - [place] Specimen Whole blood sample (specimen) Performing Organization Address [facility] CLIA # [id number] [place] [address] - [place] 100 [facility] LABORATORY SERVICES CLIA # [id number] [place] [address] - [place] [address] [facility] [address] * POC GLUCOSE (07/08/2018 11:56 AM CDT) POC GLUCOSE 164 (H) 74 - 99 mg/dL [facility] [place] MANAGER FITNESS NAME Flori Teresa [facility] [place] Specimen Whole blood sample (specimen) Performing Organization Address City/State/Zipcode Ph one Number [facility] CLIA # [id number] [place] [phone] - [place] 100 [facility] LABORATORY SERVICES CLIA # [id number] [place] [address] - [place] 100 [facility] * POC GLUCOSE (07/08/2018 7:34 AM CDT) [facility] POC GLUCOSE 182 (H) 74 - 99 mg/dL [facility] [place] MANAGER FITNESS NAME Flori Teresa [facility] [place] Specimen Whole blood sample (specimen) Performing Organization Address City/State/Zipcode Ph one Number [facility] CLIA # [id number] [place] [address] - [place] 100 [facility] LABORATORY [facility] CLIA # [id number] [place] [address] - [place] 100 [facility] * CBC WITH DIFFERENTIAL (07/08/2018 4:07 AM CDT) [facility] WBC 8.2 4.0 - 11.0 K/uL [facility] [place] RBC 3.16 (L) 4.70 - 6.00 M/uL [facility] [place] HEMOGLOBIN 8.6 (L) 13.5 - 18.0 g/dL [facility] [place] HEMATOCRIT 26.1 (L) 42.0 - 52.0 % [facility] [place] MCV 82.6 78.0 - 100.0 fL [facility] [place] MCH 27.2 27.0 - 34.0 pg [facility] [place] MCHC 33.0 31.0 - 37.0 g/dL [facility] [place] RDW 14.3 12.0 - 15.0 % [facility] [place] RDW-STDEV 42.4 37.1 - 48.7 Critical access hospital LABORATORY [facility] [place] PLATELETS 391 150 - 450 K/uL [facility] [place] MPV 8.2 (L) 9.3 - 12.4 Critical access hospital LABORATORY SERVICES - [place] NEUTROPHILS 67 31 - 76 % [facility] [place] LYMPHOCYTES 21 (L) 24 - 44 % [facility] [place] MONOCYTES 10 2 - 11 % [facility] [place] EOSINOPHILS 1 0 - 6 % [facility] [place] BASOPHILS 0 0 - 2 % [facility] [place] IMMATURE 1 0 - 2 % [facility] [place] NEUTROPHIL 5.51 1.80 - 7.70 K/uL [facility] [place] LYMPHOCYTE 1.73 1.00 - 4.80 K/uL [facility] [place] MONOCYTE 0.84 0.10 - 1.30 K/uL [facility] [place] EOSINOPHIL 0.04 0.00 - 0.70 K/uL [facility] [place] BASOPHILS 0.02 0.00 - 0.20 K/uL [facility] [place] IMMATURE 0.04 0.00 - 0.10 K/uL [facility] ABS[facility] - [place] Specimen Blood Performing Organization Address [facility] one [facility] [employer] LABORATORY SERVICES CLIA # [id number] [place] [address] - [place] 100 [employer] LABORATORY SERVICES CLIA # [id number] [place] [address] - [place] 100 [employer] * POC GLUCOSE (07/07/2018 9:17 PM CDT) POC GLUCOSE 172 (H) 74 - 99 mg/dL [employer] LABORATORY SERVICES - [place] MANAGER FITNESS NAME napoleon galvin [employer] LABORATORY SERVICES - [place] Specimen Whole blood sample (specimen) Performing Organization Address [facility] Ph one Number [employer] LABORATORY SERVICES CLIA # [id number] [place] [address] - [place] [address] [employer] LABORATORY SERVICES CLIA # [id number] [place] [address] - [place] 100 [facility] [employer] * POC GLUCOSE (07/07/2018 5:13 PM CDT) POC GLUCOSE 218 (H) 74 - 99 mg/dL [employer] LABORATORY SERVICES - [place] MANAGER FITNESS NAME sara harris [employer] LABORATORY SERVICES - [place] Specimen Whole blood sample (specimen) Performing Organization Address [facility] Ph one Number [facility] CLIA # [id number] [place] [address] - [place] 100 [facility] LABORATORY SERVICES CLIA # [id number] [place] [address] - [place] 100 [facility] [employer] * POC GLUCOSE (07/07/2018 12:35 PM CDT) POC GLUCOSE 157 (H) 74 - 99 mg/dL [facility] - [place] MANAGER FITNESS NAME kimberly sara [facility] - [place] Specimen Whole blood sample (specimen) Performing Organization Address [facility] one [employer] [facility] CLIA # [id number] [place] [phone] - [place] 100 [facility] LABORATORY SERVICES CLIA # [id number] [place] [address] - [place] 100 [facility] * POC GLUCOSE (07/07/2018 8:15 AM CDT) POC GLUCOSE 161 (H) 74 - 99 mg/dL [facility] - [place] MANAGER FITNESS NAME sara harris [facility] - [place] Specimen Whole blood sample (specimen) Performing Organization Address [facility] one [employer] [facility] CLIA # [id number] [place] [address] - [place] 100 [facility] LABORATORY SERVICES CLIA # [id number] [place] [address] - [place] 100 [facility] [employer] * BASIC METABOLIC PANEL (07/07/2018 4:00 AM CDT) SODIUM 136 136 - 145 mmol/L [facility] [place] POTASSIUM 4.1 3.5 - 5.1 mmol/L [facility] [place] CHLORIDE 98 98 - 107 mmol/L [facility] [place] CO2 26 22 - 29 mmol/L [facility] [place] CALCIUM 8.6 (L) 8.8 - 10.2 mg/dL [facility] [place] BUN 10 8 - 23 mg/dL [facility] [place] CREATININE 0.56 (L) 0.67 - 1.17 mg/dL [facility] 162 (H) 74 - 99 mg/dL [facility] [place] GFR >60 >=60 mL/min/1.73 sq [facility] Comment: meter LABORATORY eGFR has not been [...] GFR result. GFR, >60 >=60 mL/min/1.73 sq [facility] [facility] - [facility] ANION GAP 12 4 - 13 mmol/L [facility] - [place] Specimen Blood Performing Organization Address City/State/[facility] Ph one Number [facility] LAB[facility] CLIA # [id number] [place] [address] - [place] 100 [facility] LABORATORY SERVICES CLIA # [id number] DONNA Chao [address] - [address] * CBC WITH DIFFERENTIAL (07/07/2018 4:00 AM CDT) WBC 8.1 4.0 - 11.0 K/uL [facility] - [facility] RBC 3.09 (L) 4.70 - 6.00 M/uL [facility] - [place] HEMOGLOBIN 8.4 (L) 13.5 - 18.0 g/dL [facility] - [place] HEMATOCRIT 25.7 (L) 42.0 - 52.0 % [facility] - [facility] MCV 83.2 78.0 - 100.0 fL [facility] - [place] MCH 27.2 27.0 - 34.0 pg [facility] - [place] MCHC 32.7 31.0 - 37.0 g/dL [facility] - [facility] RDW 14.2 12.0 - 15.0 % [facility] - [place] RDW-STDEV 42.6 37.1 - 48.7 Critical access hospital LABORATORY SERVICES - [place] PLATELETS 344 150 - 450 K/uL [facility] [place] MPV 7.9 (L) 9.3 - 12.4 fL [facility] [place] NEUTROPHILS 69 31 - 76 % [facility] - [place] LYMPHOCYTES 19 (L) 24 - 44 % [facility] - [place] MONOCYTES 11 2 - 11 % [facility] - [place] EOSINOPHILS 1 0 - 6 % [facility] - [place] BASOPHILS 0 0 - 2 % [facility] - [place] IMMATURE 1 0 - 2 % [facility] GRANULOCYTES LABORATORY SERVICES - [place] NEUTROPHIL 5.56 1.80 - 7.70 K/uL [facility] - [place] LYMPHOCYTE 1.51 1.00 - 4.80 K/uL [facility] - [place] MONOCYTE 0.89 0.10 - 1.30 K/uL [facility] ABSOLUTE LABORATORY SERVICES - [place] EOSINOPHIL 0.04 0.00 - 0.70 K/uL [facility] - [place] BASOPHILS 0.01 0.00 - 0.20 K/uL [facility] - [place] IMMATURE 0.04 0.00 - 0.10 K/uL [facility] GRANULOCYTES LABORATORY ABSOLUTE SERVICES - [place] Specimen Blood Performing Organization Address City/[facility] Ph one [facility] LABORATORY SERVICES CLIA # [id number] DON[place] Chao [address] - [place] 100 [facility] LABORATORY SERVICES CLIA # [id number] DONNA Chao [address] - [place] 100 [facility] * POC GLUCOSE (07/06/2018 10:05 PM CDT) POC GLUCOSE 120 (H) 74 - 99 mg/dL [facility] LABOR[facility] - [place] MANAGER FITNESS NAME kristin clifton [facility] LABORAT[facility] - [place] Specimen Whole blood sample (specimen) Performing Organization Address City/[facility] Ph one Number [facility] LABORATORY SERVICES CLIA # [id number] [place] Chao [phone] - [place] 100 [facility] LABORATORY SERVICES CLIA # [id number] DONNA Chao [address] - [place] 100 [facility] [employer] * POC GLUCOSE (07/06/2018 5:49 PM CDT) POC GLUCOSE 152 (H) 74 - 99 mg/dL [facility] LABORATORY SERVICES - [place] MANAGER FITNESS NAME terry miles [employer] LABORATORY SERVICES - [place] Specimen Whole blood sample (specimen) Performing Organization Address [facility] LABORATORY SERVICES CLIA # [id number] [place] [address] - [place] 100 [facility] LABORATORY SERVICES CLIA # [id number] [place], [place] [address] - [place] 100 [facility] [employer] * POC GLUCOSE (07/06/2018 1:12 PM CDT) POC GLUCOSE 128 (H) 74 - 99 mg/dL [facility] LABORAT[facility] SERVICES - [place] MANAGER FITNESS NAME terry miles [facility] - [place] Specimen Whole blood sample (specimen) Performing Organization Address [facility] LABORATORY SERVICES CLIA # [id number] [place] [address] - [place] 100 [facility] LABORATORY SERVICES CLIA # [id number] [place] [address] - [place] 100 [facility] [employer] * POC GLUCOSE (07/06/2018 8:05 AM CDT) POC GLUCOSE 141 (H) 74 - 99 mg/dL [facility] LABORATORY SERVICES - [place] MANAGER FITNESS NAME terry miles [facility] - [place] Specimen Whole blood sample (specimen) Performing Organization Address [facility] [employer] SERVICES CLIA # [id number] [place] [address] - [place] 100 [facility] LABORATORY SERVICES CLIA # [id number] [place] [address] - [place] 100 [facility] [employer] * BASIC METABOLIC PANEL (07/06/2018 2:17 AM CDT) SODIUM 134 (L) 136 - 145 mmol/L [facility] LABORATORY SERVICES - [place] POTASSIUM 4.1 3.5 - 5.1 mmol/L [facility] - [place] CHLORIDE 98 98 - 107 mmol/L [facility] - [place] CO2 23 22 - 29 mmol/L [facility] - [place] CALCIUM 8.6 (L) 8.8 - 10.2 mg/dL [facility] - [place] BUN 7 (L) 8 - 23 mg/dL [facility] - [place] CREATININE 0.54 (L) 0.67 - 1.17 mg/dL [facility] - [place] GLUCOSE 121 (H) 74 - 99 mg/dL [facility] - [place] GFR >60 >=60 mL/min/1.73 sq [facility] Comment: meter LABORATORY eGFR has not been [...] GFR result. GFR, >60 >=60 mL/min/1.73 sq [facility] FARO[facility] meter LABORATORY SERVICES - [place] ANION GAP 13 4 - 13 mmol/L [facility] LABORATORY SERVICES - [place] Specimen Blood Performing Organization Address City/State/Zipcode Ph one Number [facility] LABORATORY SERVICES CLIA # [id number] [place] [address] - [place] 100 [facility] CLIA # [id number] [place] [address] - [place] 100 [facility] * CBC WITH DIFFERENTIAL (07/06/2018 2:17 AM CDT) WBC 8.6 4.0 - 11.0 K/uL [facility] - [place] RBC 3.38 (L) 4.70 - 6.00 M/uL [facility] - [place] HEMOGLOBIN 9.2 (L) 13.5 - 18.0 g/dL [facility] - [place] HEMATOCRIT 28.0 (L) 42.0 - 52.0 % [facility] - [place] MCV 82.8 78.0 - 100.0 fL [facility] LABORATORY SERVICES - [place] MCH 27.2 27.0 - 34.0 pg [facility] - [place] MCHC 32.9 31.0 - 37.0 g/dL [facility] LABORATORY SERVICES - [place] RDW 14.3 12.0 - 15.0 % [facility] - [place] RDW-STDEV 43.2 37.1 - 48.7 fL [facility] LABORATORY SERVICES - [place] PLATELETS 382 150 - 450 K/uL [facility] LABORATORY SERVICES - [place] MPV 7.8 (L) 9.3 - 12.4 fL [facility] LABORATORY SERVICES - [place] NEUTROPHILS 76 31 - 76 % [facility] LABORATORY SERVICES - [place] LYMPHOCYTES 14 (L) 24 - 44 % [facility] LABORATORY SERVICES - [place] MONOCYTES 9 2 - 11 % [facility] - [place] EOSINOPHILS 0 0 - 6 % [facility] - [place] BASOPHILS 0 0 - 2 % [facility] - [place] IMMATURE 1 0 - 2 % [facility]AN[facility] LABORATORY SERVICES - [place] NEUTROPHIL 6.56 1.80 - 7.70 K/uL [facility] - [place] LYMPHOCYTE 1.23 1.00 - 4.80 K/uL [facility] ABSOLUTE LABORATORY SERVICES - [place] MONOCYTE 0.74 0.10 - 1.30 K/uL [facility] - [place] EOSINOPHIL 0.02 0.00 - 0.70 K/uL [facility] - [place] BASOPHILS 0.01 0.00 - 0.20 K/uL [facility] ABSOLUTE LABORATORY SERVICES - [place] IMMATURE 0.05 0.00 - 0.10 K/uL [employer] LABORATORY ABSOLUTE SERVICES - [place] Specimen Blood Performing Organization Address City/State/Zipcode Ph one Number [facility] LABORATORY SERVICES CLIA # [id number] DON[place] Chao [phone] - [place] 100 [facility] LABORATORY SERVICES CLIA # [id number] DONNA Chao [phone] - [place] 100 [facility] * POC GLUCOSE (07/05/2018 8:57 PM CDT) POC GLUCOSE 132 (H) 74 - 99 mg/dL [facility] LABORATORY SERVICES - [place] MANAGER FITNESS NAME katlin amaya [facility] LABORAT[facility] - [place] Specimen Whole blood sample (specimen) Performing Organization Address City/[facility] Ph one Raza [facility] LABORATORY SERVICES CLIA # [id number] [place] [address] - [place] 100 [facility] LABORATORY SERVICES CLIA # [id number] [place] [address] - [place] 100 [facility] [employer] * POC GLUCOSE (07/05/2018 5:59 PM CDT) POC GLUCOSE 135 (H) 74 - 99 mg/dL [employer] LABORATORY SERVICES - [place] MANAGER FITNESS NAME sara harris [facility] LABORATORY SERVICES - [place] Specimen Whole blood sample (specimen) Performing Organization Address [facility] one Raza [facility] LABORATORY SERVICES CLIA # [id number] [place] [address] - [place] 100 [facility] LABORATORY SERVICES CLIA # [id number] [place] [address] - [place] 100 [facility] [employer] * XR HIP 2 OR 3 VIEWS RT (07/05/2018 1:45 PM CDT) Specimen Impressions Performed At IMPRESSION: Postoperative changes of percutaneous pin mariana for right INTERFACE SYSTEM subcapital femoral neck fracture. Narrative Performed At EXAMINATION: XR HIP 2 OR 3 VIEWS RT INTERFACE SYSTEM HISTORY: Male, 67 years old. Closed rig ht hip fracture; Elevated troponin Post OP Hip COMPARISON: Right hip radiographs 2017 0911 hours FINDINGS: AP and crosstable lateral vie ws of the right hip are performed. Postoperative changes of rig ht subcapital femoral neck fracture percutaneous pinning noted. Al ignment is near-anatomic. Partially visualized is nailed left pro ximal femoral fracture. Penile prosthesis noted. Procedure Note Interface, Bong Sgf Incoming Radiology Results - 07/05/2018 3:20 PM CDT EXAMINATION: XR HIP 2 OR 3 VIEWS RT HISTORY: Male, 67 years old. Closed right hip fracture; Elevated troponin Post OP Hip COMPARISON: Right hip radiographs 07/05/2018 0911 hours FINDINGS: AP and crosstable lateral views of the right hip are performed. Postoperative changes of right subcapital femoral neck fracture percutaneous pinning noted. Alignment is near-anatomic. Partially visualized is nailed left proximal femoral fracture. Penile prosthesis noted. IMPRESSION: Postoperative changes of percutaneous pinning for right subcapital femoral neck fracture. Performing Organization Address [facility] one Number INTERFACE SYSTEM INTERFACE SYSTEM Refer to clinic/hospital department * URINE CULTURE (07/05/2018 1:28 PM CDT) CULTURE Polymicrobial growth [facility] consistent with normal LABORATORY urethral radha and/or SERVICES - colonizing bacteria [place] Specimen Urine - Urine, indwelling (Ulloa) catheter Performing Organization Address [facility] one Number [facility] LABORATORY SERVICES CLIA # [id number] [place] [address] - [place] 100 [facility] LABORATORY SERVICES CLIA # [id number] [place] [address] - [place] [address] [facility] [address] * URINALYSIS WITH REFLEX CULTURE (07/05/2018 1:28 PM CDT) COLOR UA Dark Yellow Pale to dark yellow [facility] - [place] CLARITY UA Turbid (A) Clear [facility] - [place] SPECIFIC 1.009 1.003 - 1.035 [facility] GRAVITY UA LABORATORY SERVICES - [place] PH UA 5.0 5.0 - 8.0 [facility] - [place] LEUKOCYTE 3+ (A) Negative [facility] ESTERASE UA LABORATORY SERVICES - [place] NITRITE UA Negative Negative [facility] - [place] PROTEIN UA Negative Negative [facility] - [place] GLUCOSE UA Negative Negative [facility] - [place] KETONES UA Negative Negative [facility] - [place] UROBILINOGEN UA 2.0 (A) <2.0 mg/dL [facility] - [place] BILIRUBIN UA Negative Negative [facility] - [place] BLOOD UA 1+ (A) Negative [facility] - [place] WBC UA >100 (A) 0 - 2 /hpf [facility] - [place] RBC UA 11-25 (A) 0 - 2 /hpf [facility] - [place] BACTERIA UA 2+ (A) Negative /hpf [facility] - [place] EPITHELIAL 0-5 0 - 5 /hpf [facility] CELLS, URINE LABORATORY SERVICES - [place] HYALINE CAST 6-10 (A) None Seen, 0-2 /lpf [facility] LABORATORY SERVICES - [place] AMORPHOUS Present (A)Comment: Present Absent [facility] LABORATORY SERVICES - [place] WBC CLUMPS Present (A)Comment: Many Absent [facility] LABORATORY SERVICES - [place] Specimen Urine - Urine, indwelling (U[place]) catheter Narrative Performed At Based on results, a urine culture has been reflexed. [facility] - [place] Performing Organization Address City/[facility] Ph one Number [facility] CLIA # [id number] [place] [address] - [place] 100 [facility] LABORATORY SERVICES CLIA # [id number] [place] [address] - [place] [address] [facility] [address] * POC GLUCOSE (07/05/2018 12:51 PM CDT) POC GLUCOSE 174 (H) 74 - 99 mg/dL [facility] - [place] MANAGER FITNESS NAME flynn pimentel [facility] [employer] SERVICES - [place] Specimen Whole blood sample (specimen) Performing Organization Address City/[facility] Ph one Number [facility] LABORATORY SERVICES CLIA # [id number] [place] [address] - [place] 100 [facility] LABORATORY SERVICES CLIA # [id number] [place] [address] - [place] [address] [facility] [address] * XR FLUORO GREATER THAN 1 HOUR (07/05/2018 12:37 PM CDT) Specimen Narrative Performed At Order information only. Exam was auto -finalized. * XR HIP 2 OR 3 VIEWS RT (07/05/2018 12:34 PM CDT) Specimen Impressions Performed At IMPRESSION: Intraoperative fluoroscopic images demons trating INTERFACE SYSTEM percutaneous screw placement for right subcapital femoral neck fracture. Narrative Performed At EXAMINATION: XR HIP 2 OR 3 VIEWS RT INTERFACE SYSTEM HISTORY: Male, 67 years old. Closed rig ht hip fracture; Elevated troponin Fracture COMPARISON: Right hip radiographs 2017 0911 hours FINDINGS: Two intraoperative fluoroscop ic views of the right hip are performed. There is ongoing percutaneou s screw placement for a right subcapital femoral neck fracture. Penil e prosthesis is noted obscuring the femoral neck on one view. Procedure Note Interface, Bong Sgf Incoming Radiology Results - 07/05/2018 3:20 PM CDT EXAMINATION: XR HIP 2 OR 3 VIEWS RT HISTORY: Male, 67 years old. Closed right hip fracture; Elevated troponin Fracture COMPARISON: Right hip radiographs 07/05/2018 0911 hours FINDINGS: Two intraoperative fluoroscopic views of the right hip are performed. There is ongoing percutaneous screw placement for a right subcapital femoral neck fracture. Penile prosthesis is noted obscuring the femoral neck on one view. IMPRESSION: Intraoperative fluoroscopic images demonstrating percutaneous screw placement for right subcapital femoral neck fracture. Performing Organization Address [facility] one Number INTERFACE SYSTEM INTERFACE SYSTEM Refer to clinic/hospital department * XR HIP 2 OR 3 VIEWS RT (07/05/2018 9:26 AM CDT) Specimen Impressions Performed At IMPRESSION: INTERFACE SYSTEM Subcapital right femoral neck fractures not delineated on today's imaging Narrative Performed At AP pelvis and lateral radiographs of the right hip 9:26 AM INTERFACE SYSTEM HISTORY: 67 years Male presents with cl osed hip fracture COMPARISON: Radiographs and CT one day previous. FINDINGS: The crosstable lateral is underpenetrat ed. The nondisplaced subcapital right femoral head fracture is not delineated on these radiographs. The pelvis is intact. Ther e is no dislocation. Partial visualization of left hip hardware with healed left femoral neck fracture. Procedure Note Sienna [facility] Incoming Radiology Results - 07/05/2018 9:47 AM CDT AP pelvis and lateral radiographs of the right hip 07/05/2018 9:26 AM HISTORY: 67 years Male presents with closed hip fracture COMPARISON: Radiographs and CT one day previous. FINDINGS: The crosstable lateral is underpenetrated. The nondisplaced subcapital right femoral head fracture is not delineated on these radiographs. The pelvis is intact. There is no dislocation. Partial visualization of left hip hardware with healed left femoral neck fracture. IMPRESSION: Subcapital right femoral neck fractures not delineated on today's imaging Performing Organization Address [facility] one Number INTERFACE SYSTEM INTERFACE SYSTEM Refer to clinic/hospital department * POC GLUCOSE (07/05/2018 7:27 AM CDT) POC GLUCOSE 148 (H) 74 - 99 mg/dL [employer] LABORATORY SERVICES - [place] MANAGER FITNESS NAME sara harris [facility] - [place] Specimen Whole blood sample (specimen) Performing Organization Address City/[facility] Ph one Number [facility] LABORATORY SERVICES CLIA # [id number] [place] [address] - [place] 100 [facility] CLIA # [id number] DONNA Chao [address] - [place] 100 [facility] * BASIC METABOLIC PANEL (07/05/2018 3:45 AM CDT) [facility] SODIUM 136 136 - 145 mmol/L [facility] - [place] POTASSIUM 4.2 3.5 - 5.1 mmol/L [facility] - [place] CHLORIDE 101 98 - 107 mmol/L [facility] - [place] CO2 23 22 - 29 mmol/L [facility] - [place] CALCIUM 8.7 (L) 8.8 - 10.2 mg/dL [facility] - [place] BUN 10 8 - 23 mg/dL [facility] - [place] CREATININE 0.66 (L) 0.67 - 1.17 mg/dL [facility] - [place] GLUCOSE 142 (H) 74 - 99 mg/dL [facility] - [place] GFR >60 >=60 mL/min/1.73 sq [facility] Comment: meter LABORATORY eGFR has not been [...] GFR result. GFR, >60 >=60 mL/min/1.73 sq [facility] FAROESE meter LABORATORY SERVICES - [place] ANION GAP 12 4 - 13 mmol/L [employer] LABORATORY SERVICES - [place] Specimen Blood Performing Organization Address City/[facility] Ph one Number [employer] LABORATORY SERVICES CLIA # [id number] [place] [address] - [place] 100 [facility] CLIA # [id number] DONNA Chao [address] - [place] [address] * CBC WITH DIFFERENTIAL (07/05/2018 3:45 AM CDT) [facility] WBC 7.8 4.0 - 11.0 K/uL [facility] - [place] RBC 3.89 (L) 4.70 - 6.00 M/uL [facility] - [place] HEMOGLOBIN 10.6 (L) 13.5 - 18.0 g/dL [facility] - [place] HEMATOCRIT 32.8 (L) 42.0 - 52.0 % [facility] - [place] MCV 84.3 78.0 - 100.0 fL [facility] - [place] MCH 27.2 27.0 - 34.0 pg [facility] - [place] MCHC 32.3 31.0 - 37.0 g/dL [facility] - [place] RDW 14.4 12.0 - 15.0 % [facility] - [place] RDW-STDEV 43.9 37.1 - 48.7 fL [facility] - [place] PLATELETS 446 150 - 450 K/uL [facility] - [place] MPV 7.8 (L) 9.3 - 12.4 fL [facility] - [place] NEUTROPHILS 68 31 - 76 % [facility] - [place] LYMPHOCYTES 19 (L) 24 - 44 % [facility] - [place] MONOCYTES 12 (H) 2 - 11 % [facility] - [place] EOSINOPHILS 0 0 - 6 % [facility] - [place] BASOPHILS 0 0 - 2 % [facility] - [place] IMMATURE 1 0 - 2 % [facility]AN[facility] LABORATORY SERVICES - [place] NEUTROPHIL 5.34 1.80 - 7.70 K/uL [facility] ABSOLUTE LABORATORY SERVICES - [place] LYMPHOCYTE 1.45 1.00 - 4.80 K/uL [facility] ABSOLUTE LAB[facility]ATORY SERVICES - [place] MONOCYTE 0.94 0.10 - 1.30 K/uL [facility] ABSOLUTE LAB[facility]ATORY SERVICES - [place] EOSINOPHIL 0.03 0.00 - 0.70 K/uL [facility] ABSOLUTE LAB[facility]ATORY SERVICES - [place] BASOPHILS 0.02 0.00 - 0.20 K/uL [facility] ABSOLUTE LABORATORY SERVICES - [place] IMMATURE 0.04 0.00 - 0.10 K/uL [facility] LABORATORY ABSOLUTE SERVICES - [place] Specimen Blood Performing Organization Address [facility] Ph one [facility] LABORATORY SERVICES CLIA # [id number] [place] [address] - [place] 100 [facility] LABORATORY SERVICES CLIA # [id number] [place], [place] [address] - [place] 100 [facility] * POC GLUCOSE (07/04/2018 10:57 PM CDT) POC GLUCOSE 136 (H) 74 - 99 mg/dL [facility] LABORATORY SERVICES - [place] MANAGER FITNESS NAME shola batista [facility] LABORATORY SERVICES - [place] Specimen Whole blood sample (specimen) Performing Organization Address [facility] one [facility] LABORATORY SERVICES CLIA # [id number] [place] [address] - [place] 100 [facility] LABORATORY SERVICES CLIA # [id number] [place] [address] - [place] 100 [facility] * TROPONIN 6 HR, 5TH GEN (07/04/2018 10:57 PM CDT) TROPONIN T, 6 40 (H) <=15 ng/L [facility] HR 5TH GEN LABORATORY SERVICES - [place] DELTA 6HR 5 <12 [facility] TROPONIN T LABORATORY SERVICES - [place] Specimen Blood Narrative Performed At Troponin elevated. [facility] LABORATORY [place] indeterminate. SERVICES - [place] Performing Organization Address [facility] one [facility] LABORATORY SERVICES CLIA # [id number] [place] [address] - [place] 100 [facility] LABORATORY SERVICES CLIA # [id number] [place] [address] - [place] 100 [facility] * POC GLUCOSE (07/04/2018 9:44 PM CDT) POC GLUCOSE 162 (H) 74 - 99 mg/dL [facility] LABORATORY SERVICES - [place] MANAGER FITNESS NAME katlin amaya [facility] LABORATORY SERVICES - [place] Specimen Whole blood sample (specimen) Performing Organization Address [facility] one [facility] LABORATORY SERVICES CLIA # [id number] [place] [address] - [place] 100 [facility] LABORATORY SERVICES CLIA # [id number] DONNA Chao [address] - [place] 100 [facility] * TROPONIN 2 HR, 5TH GEN (07/04/2018 9:25 PM CDT) TROPONIN T, 2 37 (H) <=15 ng/L [facility] HR 5TH GEN LABORATORY SERVICES - [place] DELTA 2HR 2 <4 [facility] TROPONIN T LABORATORY SERVICES - [place] Specimen Blood Narrative Performed At Troponin elevated. [facility] LABORATORY Delta not changing. SERVICES - [place] Performing Organization Address City/State/Zipcode Ph one Number [facility] LABORATORY SERVICES CLIA # [id number] [place] [phone] - [place] 100 [facility] LABORATORY SERVICES CLIA # [id number] DONNA Chao [address] - [place] 100 [facility] * BASIC METABOLIC PANEL (07/04/2018 5:48 PM CDT) SODIUM 132 (L) 136 - 145 mmol/L [facility] LABORATORY SERVICES - [place] POTASSIUM 4.3 3.5 - 5.1 mmol/L [facility] [facility] [place] CHLORIDE 97 (L) 98 - 107 mmol/L [facility] [place] CO2 22 22 - 29 mmol/L [facility] [place] CALCIUM 8.3 (L) 8.8 - 10.2 mg/dL [facility] [place] BUN 13 8 - 23 mg/dL [facility] [place] CREATININE 0.63 (L) 0.67 - 1.17 mg/dL [facility] [place] GLUCOSE 133 (H) 74 - 99 mg/dL [facility] [place] GFR >60 >=60 mL/min/1.73 sq [facility] Comment: meter LABORATORY eGFR has not been [...] GFR result. GFR, >60 >=60 mL/min/1.73 sq [facility] [place] ANION GAP 13 4 - 13 mmol/L [facility] [place] Specimen Blood Performing Organization Address City/State/Zipcode Ph one Number [facility] CLIA # [id number] DONNA Chao [id number] - [place] [address] [facility] CLIA # [id number] DONNA Chao [phone] - [place] [address] [facility] * CBC WITH DIFFERENTIAL (07/04/2018 5:48 PM CDT) WBC 10.8 4.0 - 11.0 K/uL [facility] [place] RBC 3.42 (L) 4.70 - 6.00 M/uL [facility] [place] HEMOGLOBIN 9.3 (L) 13.5 - 18.0 g/dL [facility] [place] HEMATOCRIT 28.2 (L) 42.0 - 52.0 % [facility] [place] MCV 82.5 78.0 - 100.0 fL [facility] [place] MCH 27.2 27.0 - 34.0 pg [facility] [place] MCHC 33.0 31.0 - 37.0 g/dL [facility] [place] RDW 14.1 12.0 - 15.0 % [facility] [place] RDW-STDEV 42.1 37.1 - 48.7 fL [employer] [facility] [place] PLATELETS 386 150 - 450 K/uL [facility] [place] MPV 7.8 (L) 9.3 - 12.4 fL [facility] [place] NEUTROPHILS 73 31 - 76 % [facility] [place] LYMPHOCYTES 16 (L) 24 - 44 % [facility] [place] MONOCYTES 10 2 - 11 % [facility] [place] EOSINOPHILS 0 0 - 6 % [facility] [place] BASOPHILS 0 0 - 2 % [facility] [place] IMMATURE 1 0 - 2 % [facility] [place] NEUTROPHIL 7.88 (H) 1.80 - 7.70 K/uL [facility] [place] LYMPHOCYTE 1.71 1.00 - 4.80 K/uL [facility] [place] MONOCYTE 1.13 0.10 - 1.30 K/uL [facility] [place] EOSINOPHIL 0.03 0.00 - 0.70 K/uL [facility] [place] BASOPHILS 0.01 0.00 - 0.20 K/uL [facility] [place] IMMATURE 0.07 0.00 - 0.10 K/uL [facility]AT[facility] ABSOLUTE SERVICES - [place] Specimen Blood Performing Organization Address City/[facility] Ph one [facility] LAB[facility] SERVICES CLIA # [id number] [place] [address] - [address] LABORATORY SERVICES CLIA # [id number] [place], [place] [address] - [address] * TROPONIN BASELINE, 5TH GEN (07/04/2018 4:59 PM CDT) TROPONIN T, 35 (H) <=15 ng/L [facility] LABORATORY GEN [facility] [place] Specimen Blood Narrative Performed At Troponin elevated. [facility] [place] Performing Organization Address City/[facility] Ph one [facility] LABORATORY SERVICES CLIA # [id number] [place] [address] - [address] LABORATORY SERVICES CLIA # [id number] [place], [place] [address] - [address] * EKG 12-LEAD (07/04/2018 4:30 PM CDT) Specimen Narrative Performed At Stationary ECG Study INTERFACE SYSTEM [address] [place] [address] Test Date: 07/04/2018 4:26 PM Pat Name: OLIVERIO DALTON Department: 30 Room: [place] [address] Gender: Male 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1950 Requested By: Order Number: [id number] Eliel MD: Noel Rob Severity: Abnormal ECG Measurements Intervals [place] Rate: 83 P: 38 PA: 222 QRS: 4 QRSD: 80 T: 88 QT: 376 QTc: 441 Interpretive Statements S inus rhythm with 1st degree AV block Low voltage QRS Nonspecific T wave abnormality Abnormal ECG Electronically Signed On 07-05-2018 9:00 :51 CDT by Noel Rob Procedure Note Interface, [facility] Incoming Radiology Results - 07/05/2018 9:00 AM CDT Stationary ECG Study [address] [address] Test Date: 07/04/2018 4:26 PM Pat Name: OLIVERIO DALTON Department: 30 Room: [place] [address] Gender: Male 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1950 Requested By: Order Number: [id number] Reading MD: Noel Rob Severity: Abnormal ECG Measurements Intervals [place] Rate: 83 P: 38 PA: 222 QRS: 4 QRSD: 80 T: 88 QT: 376 QTc: 441 Interpretive Statements Sinus rhythm with 1st degree AV block Low voltage QRS Nonspecific T wave abnormality Abnormal ECG Electronically Signed On 07-05-2018 9:00:51 CDT by Noel Rob Performing Organization Address City/State/Zipcode Ph one Number INTERFACE SYSTEM INTERFACE SYSTEM Refer to clinic/hospital department documented in this encounter Visit Diagnoses Diagnosis Closed fracture of head of right femur - Primary Other closed transcervical fracture of femur Closed right hip fracture Closed fracture of unspecified part of neck of femur Elevated troponin Other abnormal blood chemistry COPD (chronic obstructive pulmonary dis ease) Chronic airway obstruction, not elsewhe re classified Coronary artery disease involving nativ e coronary artery of [place] heart without angina pectoris Hyperlipidemia with target LDL less shrtui n 70 Other and unspecified hyperlipidemia Essential hypertension Unspecified essential hypertension Tobacco dependence Tobacco use disorder 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, with long-term current use of insulin Epilepsy Unspecified epilepsy without mention of intractable epilepsy documented in this encounter Administered Medications Action Date Dose Rate Site Medication Order MAR Action 07/05/2018 11:40 AM CDT 3 Puffs albuterol sulfate 90 mcg/Actuation Given inhaler 2 Puff 2 Puff, Inhalation, EVERY 4 HOURS PRN RESPIRATORY, Starting 07/04/18 at 1725, Until 07/09/18 at 1932, Shortness of Breath, Wheezing, Routine 07/09/2018 2:12 PM CDT 25 mg bethanechol (URECHOLINE) tablet 25 mg Given 25 mg, Oral, FOUR TIMES DAILY, First dose on Wed07/04/18 at 1800, Until Discontinued, Routine 25 mg Given 07/09/2018 9:49 AM CDT 25 mg Given 07/08/2018 8:41 PM CDT 07/06/2018 4:22 PM CDT 1,000 mg 100 mL/hr cefTRIAXone (ROCEPHIN) 1,000 mg in New Bag sodium chloride 0.9% 50 mL IVPB (MBP) 1,000 mg, IV, EVERY 24 HOURS (DAILY), First dose on Wed07/05/18 at 1630, Unti l Discontinued, Routine, Antibiotic Indication: Urinary Tract Infection(UTI ) / Infection 1,000 mg 100 mL/hr New Bag 07/05/2018 4:40 PM CDT 07/06/2018 5:18 AM CDT 600 mg 100 mL/hr clindamycin (CLEOCIN) 600 mg in dextrose New Bag 5% 50 mL IVPB 600 mg, IV, POST-PROCEDURE Q 8 HOURS, 2 doses, First dose on Wed07/05/18 at 1930, Last dose on Wed07/06/18 at 0330, Routine, Post-op - Floor, Antibiotic Indication: Surgical prophylaxis 600 mg 100 mL/hr New Bag 07/05/2018 8:32 PM CDT 07/09/2018 9:50 AM CDT 75 mg clopidogrel (PLAVIX) tablet 75 mg Given 75 mg, Oral, DAILY, First dose on Wed07/05/18 at 0900, Until Discontinued, Routine 75 mg Given 07/08/2018 9:11 AM CDT 75 mg Given 07/07/2018 10:05 AM CDT 07/08/2018 8:42 PM CDT 10 mg ezetimibe (ZETIA) tablet 10 mg Given 10 mg, Oral, DAILY AT BEDTIME, First dose on Wed07/04/18 at 2100, Until Discontinued, Routine 10 mg Given 07/07/2018 9:21 PM CDT 10 mg Given 07/06/2018 8:45 PM CDT 07/09/2018 9:49 AM CDT 145 mg fenofibrate nanocrystallized (TRICOR) Given tablet 145 mg 145 mg, Oral, DAILY, First dose on 8/28/18 at 0900, Until Discontinued, Routine 145 mg Given 07/08/2018 9:11 AM CDT 145 mg Given 07/07/2018 10:05 AM CDT 07/05/2018 1:33 PM CDT 25 mcg fentaNYL PF (SUBLIMAZE) 50 mcg/mL Given injection 25 mcg 25 mcg, IV, POST-PROCEDURE Q 3 MINUTES PRN, Starting 07/05/18 at 1049, Unti l e 07/05/18 at 1437, Pain, Mild, For pain scale 1-3, Routine, PACU 07/09/2018 9:50 AM CDT 40 mg FLUoxetine (PROzac) capsule 40 mg Given 40 mg, Oral, DAILY, First dose on Wed07/05/18 at 0900, Until Discontinued, Routine 40 mg Given 07/08/2018 9:11 AM CDT 40 mg Given 07/07/2018 10:05 AM CDT 07/09/2018 2:15 PM CDT 5,000 Units Abdomina l Tissue heparin injection 5,000 Units Given 5,000 Units, subCUT, EVERY 8 HOURS, First dose on Wed07/06/18 at 1300, Unti l Discontinued, Routine 5,000 Units Abdomen, Right Lower Quadrant Given 07/09/2018 5:44 AM CDT 5,000 Units Abdomen, Left Lower Quadrant Given 07/08/2018 8:42 PM CDT 07/07/2018 5:39 PM CDT 2 Units Abdomina l Tissue insulin lispro (HumaLOG) variable dose Given injection subCUT, THREE TIMES DAILY WITH MEALS, First dose on Wed07/05/18 at 0800, Unti l Discontinued, Routine 1 Units Abdomen, Left Lower Quadrant Given 07/07/2018 12:58 PM CDT 1 Units Abdomen, Left Lower Quadrant Given 07/07/2018 10:06 AM CDT 07/07/2018 9:22 PM CDT 1 Units Abdomina l Tissue insulin lispro (HumaLOG) variable dose Given injection subCUT, DAILY AT BEDTIME, First dose on Wed07/04/18 at 2100, Until Discontinued , Routine 07/05/2018 11:34 AM CDT lactated Ringers solution Continue IV, at 40 mL/hr, CONTINUOUS, Starting from Pre-Op 07/05/18 at 0945, Until Nancy 07/07/18 at 1251, Stat 40 mL/hr New Bag 07/05/2018 9:52 AM CDT 07/05/2018 3:37 PM CDT 125 mL/hr lactated Ringers solution New Bag IV, at 125 mL/hr, POST-PROCEDURE CONTINUOUS, Starting Wed07/05/18 at 1100, Until Nancy 07/07/18 at 1251, Routine, PACU 07/09/2018 9:49 AM CDT 1 mg LORazepam (ATIVAN) tablet 1 mg Given 1 mg, Oral, EVERY 12 HOURS, First dose on Wed07/04/18 at 2100, Until Discontinued, Routine 1 mg Given 07/08/2018 8:42 PM CDT 1 mg Given 07/08/2018 9:11 AM CDT 07/09/2018 9:50 AM CDT 12.5 mg metoprolol succinate (TOPROL XL) SR 24 Given hour tablet 12.5 mg 12.5 mg, Oral, DAILY, First dose on Wed07/05/18 at 0900, Until Discontinued, Routine 12.5 mg Given 07/08/2018 9:11 AM CDT 12.5 mg Given 07/07/2018 10:10 AM CDT 07/05/2018 8:15 AM CDT 4 mg morphine 4 mg/mL injection 4 mg Given 4 mg, IV, EVERY 2 HOURS PRN, Starting Wed07/04/18 at 1956, Until Wed07/05/18 at 0905, Pain (See admin instructions), Routine 4 mg Given 07/05/2018 5:39 AM CDT 4 mg Given 07/05/2018 2:17 AM CDT 07/08/2018 4:26 PM CDT 4 mg morphine 4 mg/mL injection 4 mg Given 4 mg, IV, EVERY 1 HOUR PRN, Starting 07/05/18 at 0915, Until 07/09/18 at 1932, Pain (See admin instructions), Routine 4 mg Given 07/08/2018 11:24 AM CDT 4 mg Given 07/07/2018 5:10 AM CDT nicotine (NICODERM CQ) 14 mg/24 hr transdermal patch 1 Patch 1 Patch, Transdermal, DAILY PRN, Starting Wed07/05/18 at 0834, Until 07/09/18 at 1932, nicotine withdrawal, Routine 07/08/2018 8:42 PM CDT 2.5 mg OLANZapine (ZyPREXA) tablet 2.5 mg Given 2.5 mg, Oral, DAILY AT BEDTIME, First dose on Wed07/04/18 at 2100, Until Discontinued, Routine 2.5 mg Given 07/07/2018 9:20 PM CDT 2.5 mg Given 07/06/2018 8:45 PM CDT 07/05/2018 11:34 AM CDT 4 mg ondansetron (ZOFRAN) 4 mg/2 mL injection Given 4 mg 4 mg, IV, EVERY 6 HOURS PRN, Starting Wed07/04/18 at 1726, Until 07/09/18 a t 1932, Nausea/Emesis, Routine 07/05/2018 12:53 PM CDT 4 mg ondansetron (ZOFRAN) 4 mg/2 mL injection Given 4 mg 4 mg, IV, POST-PROCEDURE ONCE PRN, 1 dose, Starting Wed07/05/18 at 1049, Until Wed07/05/18 at 1253, Nausea/Emesis, Routine, PACU 07/09/2018 2:16 PM CDT 1 Tablet oxyCODONE-acetaminophen (PERCOCET) Given 10-325 mg per tablet 1 Tablet 1 Tablet, Oral, EVERY 6 HOURS PRN, Starting 07/09/18 at 0742, Until 07/09/18 at 1932, Pain (See admin instructions), Routine 1 Tablet Given 07/09/2018 9:49 AM CDT 07/08/2018 11:38 PM CDT 1 Tablet oxyCODONE-acetaminophen (PERCOCET) Given 7.5-325 mg per tablet 1 Tablet 1 Tablet, Oral, EVERY 4 HOURS PRN, Starting Wed07/04/18 at 1730, Until 07/09/18 at 0742, Pain (See admin instructions), Routine 1 Tablet Given 07/08/2018 2:04 PM CDT 1 Tablet Given 07/08/2018 9:25 AM CDT 07/09/2018 5:44 AM CDT 40 mg pantoprazole (PROTONIX) tablet 40 mg Given 40 mg, Oral, DAILY BEFORE BREAKFAST, First dose on Wed07/05/18 at 0600, Unti l Discontinued, Routine 40 mg Given 07/08/2018 5:39 AM CDT 40 mg Given 07/07/2018 5:06 AM CDT 07/09/2018 9:49 AM CDT 200 mg phenytoin sodium (DILANTIN) extended Given release capsule 200 mg 200 mg, Oral, TWO TIMES DAILY, First dose on Wed07/04/18 at 2100, Until Discontinued, Routine 200 mg Given 07/08/2018 8:42 PM CDT 200 mg Given 07/08/2018 9:11 AM CDT promethazine (PHENERGAN) injection 6.25 mg 6.25 mg, IV, EVERY 6 HOURS PRN, Startin g Wed07/05/18 at 1304, Until 07/09/18 a t 1932, Nausea/Emesis, Routine, PACU 07/05/2018 1:02 PM CDT 6.25 mg promethazine (PHENERGAN) injection 6.25 Given mg 6.25 mg, IV, ONE TIME ONLY, 1 dose, Wed07/05/18 at 1300, Stat PROMETHAZINE 25 MG/ML INJECTION SOLUTIO N (CABINET OVERRIDE) 1 dose, Starting Wed07/05/18 at 1302, Until Wed07/05/18 at 1302, Jed OMNICELL: cabinet override, 07/09/2018 2:14 PM CDT 5 mg ramipril (ALTACE) capsule 5 mg Given 5 mg, Oral, DAILY WITH LUNCH, First dos e on Wed07/05/18 at 1200, Until Discontinued, Routine 5 mg Given 07/08/2018 1:37 PM CDT 5 mg Given 07/07/2018 12:56 PM CDT 07/08/2018 8:42 PM CDT 1 Tablet sennosides-docusate sodium (SENNA-S) Given 8.6-50 mg per tablet 1 Tablet 1 Tablet, Oral, TWO TIMES DAILY, First dose on Wed07/05/18 at 1445, Until Discontinued, Routine, Post-op - Floor 1 Tablet Given 07/07/2018 10:06 AM CDT 1 Tablet Given 07/06/2018 8:45 PM CDT 07/08/2018 8:42 PM CDT 40 mg simvastatin (ZOCOR) tablet 40 mg Given 40 mg, Oral, DAILY AT BEDTIME, First dose on Wed07/04/18 at 2100, Until Discontinued, Routine 40 mg Given 07/07/2018 9:20 PM CDT 40 mg Given 07/06/2018 8:45 PM CDT 07/04/2018 8:19 PM CDT 10 mL SODIUM CHLORIDE 0.9 % INJECTION SYRINGE Given (CABINET OVERRIDE) 1 dose, Starting Wed07/04/18 at 2014, Until Wed07/04/18 at 2019, Andre BARAHONALL: cabinet override, 07/04/2018 10:42 PM CDT 10 mL SODIUM CHLORIDE 0.9 % INJECTION SYRINGE Given (CABINET OVERRIDE) 1 dose, Starting Wed07/04/18 at 2236, Until Wed07/04/18 at 2242, Andre BARAHONALL: cabinet override, 07/05/2018 2:18 AM CDT 10 mL SODIUM CHLORIDE 0.9 % INJECTION SYRINGE Given (CABINET OVERRIDE) 1 dose, Starting Wed07/05/18 at 0216, Until Wed07/05/18 at 0218, Andre SOSA: cabinet override, 07/04/2018 4:59 PM CDT 1,000 mL 1000 mL/hr sodium chloride 0.9% bolus solution New Bag 1,000 mL 1,000 mL, IV, ONE TIME ONLY, 1 dose, Mo n 07/04/18 at 1645, at 1,000 mL/hr, Administer over 60 Minutes, Routine 07/04/2018 5:30 PM CDT 1,000 mL 1000 mL/hr sodium chloride 0.9% bolus solution Started by 1,000 mL Another 1,000 mL, IV, ONE TIME ONLY, 1 dose, [facility] 07/04/18 at 1730, at 1,000 mL/hr, Administer over 60 Minutes, Routine 07/04/2018 10:44 PM CDT 75 mL/hr sodium chloride 0.9% infusion New Bag IV, at 75 mL/hr, CONTINUOUS, Starting Wed07/04/18 at 1730, Until Wed07/06/18 at 1122, Routine 07/08/2018 4:27 PM CDT 0.4 mg tamsulosin (FLOMAX) SR 24 hour capsule Given 0.4 mg 0.4 mg, Oral, DAILY WITH SUPPER, First dose on Wed07/04/18 at 2000, Until Discontinued, Routine 0.4 mg Given 07/07/2018 4:23 PM CDT 0.4 mg Given 07/06/2018 4:54 PM CDT 07/08/2018 8:42 PM CDT 50 mg traZODone (DESYREL) tablet 50 mg Given 50 mg, Oral, DAILY AT BEDTIME, First dose on Wed07/04/18 at 2100, Until Discontinued, Routine 50 mg Given 07/07/2018 9:20 PM CDT 50 mg Given 07/06/2018 8:45 PM CDT 07/06/2018 11:31 PM CDT 10 mg zolpidem (AMBIEN) tablet 10 mg Given 10 mg, Oral, NIGHTLY PRN, Starting 07/04/18 at 1725, Until 07/09/18 at 1932, Insomnia, Routine documented in this encounter
--- NOTE | 2020-03-24 13:39 | ED General ---
General Chief Complaint: Altered Mental Status Source of Information: Patient, EMS, EMS Notes Reviewed, RN/MD, RN Notes Reviewed Exam Limitations: No Limitations History of Present Illness Date Seen by Provider: March 24, 2020 Time Seen by Provider: 13:35 Initial Comments This patient is a 69-year-old male that presents to the emergency department via EMS for lethargic issues and weakness. Patient has a long history of cardiac disease and diabetes. Patient was recently seen at [facility] for just checkup and they deny violation with an eye doctor. Patient does have 24-hour care at home doing to his cardiac issues. Patient is awake and speaking states that he just feels tired. Review patient's medical history and medication list shows the patient takes numerous medications including lorazepam and MS Contin 20 mg. We'll do medical evaluation treatment is needed. Glucose checked by EMS was 171. Timing/Duration: 1 Hour Severity: Moderate Associated Systoms: Malaise Allergies and Home Medications Allergies Coded Allergies: Penicillins (Verified Allergy, Unknown, 04/22/17) diazepam (Unverified Allergy, Unknown, 03/07/17) doxycycline (Unverified Allergy, Unknown, RASH, 03/07/17) phenobarbital (Unverified Allergy, Unknown, 03/07/17) RELAXES ME TOO MUCH piperacillin (Unverified Allergy, Unknown, RASH, PT HAS RECEIVED CEFAZOLIN IN THE PAST W/O ISSUE, 03/08/17) sulfamethoxazole (Verified Allergy, Unknown, 04/22/17) terazosin (Unverified Allergy, Unknown, 03/07/17) CHEST PAIN Home Medications Albuterol Sulfate 1 Puff Puff, 2 PUFF INH Q4H PRN for SHORTNESS OF BREATH, (Reported) Aspirin 81 Mg Tablet.dr, 81 MG PO DAILY, (Reported) Bethanechol Chloride 25 Mg Tablet, 25 MG PO QID, (Reported) Cephalexin 500 Mg Capsule, 500 MG PO QID Prescribed by: ISABELLA DEAL on 01/26/202201 Cephalexin 500 Mg Capsule, 500 MG PO BID Prescribed by: SIRIA PAIGE on 02/16/20 1308 Clopidogrel Bisulfate 75 Mg Tablet, 75 MG PO DAILY, (Reported) Ezetimibe 10 Mg Tablet, 10 MG PO HS, (Reported) Fenofibrate Nanocrystallized 145 Mg Tablet, 145 MG PO DAILY, (Reported) Fentanyl 1 Each Patch.td72, 50 MCG TD Q72H Prescribed by: CARLOS ESCOTO on 07/26/17945 Ferrous Sulfate 325 Mg Tablet, 325 MG PO DAILY Prescribed by: CARLOS ESCOTO on 07/26/17945 Fluoxetine HCl 20 Mg Capsule, 40 MG PO DAILY, (Reported) TAKES 2 (20MG) CAPSULES Fluticasone Propionate 1 Ea Aero, 1 PUFF INH BID, (Reported) Fluticasone Propionate 16 Gm [place].susp, 2 SPRAYS NS DAILY, (Reported) Gabapentin 300 Mg Capsule, 300 MG PO HS, (Reported) Isosorbide Mononitrate 60 Mg Tab, 60 MG PO BID, (Reported) Lactulose 20 Gm/30 Ml Solution, 10 GM PO BID Prescribed by: CARLOS ESCOTO on 07/26/17946 Lorazepam 1 Mg Tablet, 1 MG PO BID, (Reported) Multivitamin 1 Each Capsule, 1 CAP PO DAILY, (Reported) Nitroglycerin 0.4 Mg Tab.subl, 0.4 MG SL UD PRN for CHEST PAIN, (Reported) Olanzapine 2.5 Mg Tablet, 2.5 MG PO HS, (Reported) Oxycodone HCl 20 Mg Tab.er.12h, 20 MG PO BID Prescribed by: CARLOS ESCOTO on 07/26/17945 Oxycodone HCl/Acetaminophen 1 Each Tablet, 1 TAB PO Q4H PRN for BREAKTHROUGH PAIN Prescribed by: CARLOS ESCOTO on 07/26/17945 Phenytoin Sodium Extended 100 Mg Capsule, 200 MG PO BID, (Reported) TAKES 2 (100MG) CAPSULES Pioglitazone HCl 30 Mg Tablet, 30 MG PO DAILY, (Reported) Ramipril 10 Mg Capsule, 10 MG PO DAILY, (Reported) Ranitidine HCl 150 Mg Tablet, 150 MG PO HS, (Reported) Sennosides/Docusate Sodium 1 Each Tablet, 1 EA PO BID Prescribed by: CARLOS ESCOTO on 07/26/17946 Simvastatin 40 Mg Tablet, 40 MG PO 1800, (Reported) Tamsulosin HCl 0.4 Mg Cap, 0.4 MG PO HS, (Reported) Temazepam 7.5 Mg Capsule, 7.5 MG PO HS PRN for INSOMNIA, (Reported) Timolol 5 Ml Drops, 1 DROP OU BID, (Reported) 0.5% Trazodone HCl 50 Mg Tablet, 50 MG PO HS, (Reported) Patient Home Medication List Home Medication List Reviewed: Yes Review of Systems Review of Systems Constitutional: see HPI, malaise EENTM: No see HPI, No no symptoms reported, No ear discharge, No hearing loss, No ear pain, No blurred vision, No double vision, No eye pain, No tearing, No vision loss, No dental problems, No hoarseness, No mouth pain, No mouth swelling, No epistaxis, No nose congestion, No nose pain, No throat pain, No throat swelling, No other Respiratory: No no symptoms reported, No see HPI, No cough, No dyspnea on exertion, No hemoptysis, No orthopnea, No phlegm, No short of breath, No stridor, No wheezing, No other Cardiovascular: No no symptoms reported, No see HPI, No chest pain, No edema, No Hx of Intervention, No palpitations, No syncope, No vascular heart diseas, No other Gastrointestinal: No RUQ, No LUQ, No RLQ, No LLQ, No no symptoms reported, No see HPI, No abdominal pain, No constipation, No diarrhea, No dysphagia, No hematemesis, No heartburn, No jaundice, No loss of appetite, No melena, No nausea, No vomiting, No other Musculoskeletal: No no symptoms reported, No see HPI, No back pain, No gout, No joint pain, No joint swelling, No muscle pain, No muscle stiffness, No muscle cramps, No muscle twitching, No muscle weakness, No neck pain, No other Skin: No no symptoms reported, No see HPI, No change in color, No change in hair/nails, No dryness, No hx of skin cancer, No lesions, No lumps, No pruritus, No rash, No other Psychiatric/Neurological: Denies No Symptoms Reported; See HPI; Denies Anxiety, Denies Depressed, Denies Emotional Problems, Denies Headache, Denies Numbness, Denies Paresthesia, Denies Pre-Existing Deficit, Denies Seizure, Denies Tingling, Denies Tremors; Weakness; Denies Other All Other Systems Reviewed Negative Unless Noted: Yes Past Iwzjask-[id number]-Bwqhrd Hx Patient Social History Type Used: Cigarettes 2nd Hand Smoke Exposure: Yes Recent Hopitalizations: No Immunizations Up To Date Date of Pneumonia Vaccine: Nov 08, 2016 Date of Influenza Vaccine: Aug 08, 2012 Seasonal Allergies Seasonal Allergies: No Past Medical History Surgeries: Yes Appendectomy, Cardiac, CABG, Coronary Stent, Gallbladder, Orthopedic, Penile Implant, Renal, Transurethral Resection Respiratory: Yes Asthma, COPD, Emphysema Currently Using CPAP: No Currently Using BIPAP: No Cardiac: Yes (CABG IN 1999; 16 CARDIAC STENTS) Coronary Artery Disease, High Cholesterol, Hypertension Neurological: Yes Headaches /Migraines, Seizure Disorder Reproductive Disorders: Yes (ED--PENILE IMPLANT) Sexually Transmitted Disease: No HIV/AIDS: No Genitourinary: Yes Benign Prostatic Hyperpl, Kidney Stones Gastrointestinal: Yes Gastroesophageal Reflux, Ulcer Musculoskeletal: Yes Arthritis Endocrine: Yes Diabetes, Non-Insulin dep HEENT: Yes Cataract, Glaucoma Loss of Vision: Denies Hearing Impairment: Hard of Hearing Cancer: No Psychosocial: Yes Anxiety, Bipolar, Depression Integumentary: No Blood Disorders: No Adverse Reaction/Blood Tranf: No Family Medical History Patient reports no known family medical history. Physical Exam Vital Signs Vital Signs - First Documented 03/24/20 13:25 Temp 36.6 Pulse 63 Resp 16 B/P (MAP) 98/53 (68) Pulse Ox 94 Capillary Refill : Height, Weight, BMI Height: 5'5.00" Weight: 160lbs. 15.4oz. [id number]; 31.00 BMI Method:Estimated General Appearance: No Apparent Distress, WD/WN HEENT: PERRL/EOMI, TMs Normal, Normal ENT Inspection, Pharynx Normal Neck: Full Range of Motion, Normal Inspection, Non Tender, Supple, Carotid Bruit Respiratory: Chest Non Tender, Lungs Clear, Normal Breath Sounds, No Accessory Muscle Use, No Respiratory Distress Cardiovascular: Regular Rate, Rhythm, No Edema, No Gallop, No JVD, No Murmur, Normal Peripheral Pulses Gastrointestinal: Normal Bowel Sounds, No Organomegaly, No Pulsatile Mass, Non Tender, Soft Back: Normal Inspection, No CVA Tenderness, No Vertebral Tenderness Extremity: Normal Capillary Refill, Normal Inspection, Normal Range of Motion, Non Tender, No Calf Tenderness, No Pedal Edema Neurologic/Psychiatric: Alert, Oriented x3, No Motor/Sensory Deficits, Normal Mood/Affect Skin: Normal Color, Warm/Dry Focused Exam Lactate Level 03/24/20 13:30: Lactic Acid Level 0.84 Lactic Acid Level Laboratory Tests Test 03/24/20 13:30 Lactic Acid Level 0.84 MMOL/L (0.50-2.00) Progress/Results/Core Measures Suspected Sepsis SIRS Temperature: Pulse: Respiratory Rate: Laboratory Tests 03/24/20 13:30: White Blood Count 8.5 Blood Pressure / Mean: 03/24/20 13:30: Lactic Acid Level 0.84 Laboratory Tests 03/24/20 13:30: Creatinine 0.82, INR Comment 1.1, Platelet Count 366, Total Bilirubin 0.3 Results/Orders Lab Results Laboratory Tests Test 03/24/20 13:30 03/24/20 14:00 Range/Units White Blood Count 8.5 4.3-11.0 10^3/uL Red Blood Count 4.09 L 4.35-5.85 10^6/uL Hemoglobin 11.5 L 13.3-17.7 G/DL Hematocrit 33 L 40-54 % Mean Corpuscular Volume 81 80-99 FL Mean Corpuscular Hemoglobin 28 25-34 PG Mean Corpuscular Hemoglobin Concent 35 32-36 G/DL Red Cell Distribution Width 15.3 H 10.0-14.5 % Platelet Count 366 130-400 10^3/uL Mean Platelet Volume 7.0 L 7.4-10.4 FL Neutrophils (%) (Auto) 69 42-75 % Lymphocytes (%) (Auto) 22 12-44 % Monocytes (%) (Auto) 8 0-12 % Eosinophils (%) (Auto) 1 0-10 % Basophils (%) (Auto) 0 0-10 % Neutrophils # (Auto) 5.9 1.8-7.8 X 10^3 Lymphocytes # (Auto) 1.8 1.0-4.0 X 10^3 Monocytes # (Auto) 0.7 0.0-1.0 X 10^3 Eosinophils # (Auto) 0.1 0.0-0.3 10^3/uL Basophils # (Auto) 0.0 0.0-0.1 10^3/uL Prothrombin Time 15.1 H 12.2-14.7 SEC INR Comment 1.1 0.8-1.4 Sodium Level 130 L 135-145 MMOL/L Potassium Level 4.3 3.6-5.0 MMOL/L Chloride Level 93 L 98-107 MMOL/L Carbon Dioxide Level 23 21-32 MMOL/L Anion Gap 14 5-14 MMOL/L Blood Urea Nitrogen 22 H 7-18 MG/DL Creatinine 0.82 0.60-1.30 MG/DL Estimat Glomerular Filtration Rate > 60 BUN/Creatinine Ratio 27 Glucose Level 138 H 70-105 MG/DL Lactic Acid Level 0.84 0.50-2.00 MMOL/L Calcium Level 8.9 8.5-10.1 MG/DL Corrected Calcium 9.0 8.5-10.1 MG/DL Total Bilirubin 0.3 0.1-1.0 MG/DL Aspartate Amino Transf (AST/SGOT) 13 5-34 U/L Alanine Aminotransferase (ALT/SGPT) 8 0-55 U/L Alkaline Phosphatase 62 40-136 U/L Troponin I < 0.30 <0.30 NG/ML Total Protein 6.4 6.4-8.2 GM/DL Albumin 3.9 3.2-4.5 GM/DL Salicylates Level < 0.3 L 5.0-20.0 MG/DL Acetaminophen Level < 10 L 10-30 UG/ML Serum Alcohol < 10 <10 MG/DL Urine Color PALE YELLOW Urine Clarity SLT CLOUDY Urine pH 7.0 5-9 Urine Specific [place] 1.010 L 1.016-1.022 Urine Protein NEGATIVE NEGATIVE Urine Glucose (UA) NEGATIVE NEGATIVE Urine Ketones NEGATIVE NEGATIVE Urine Nitrite NEGATIVE NEGATIVE Urine Bilirubin NEGATIVE NEGATIVE Urine Urobilinogen 0.2 < = 1.0 MG/DL Urine Leukocyte Esterase 3+ H NEGATIVE Urine RBC (Auto) 1+ H NEGATIVE Urine RBC RARE /HPF Urine WBC 50-100 H /HPF Urine Squamous Epithelial Cells RARE /HPF Urine Crystals NONE /LPF Urine Bacteria TRACE /HPF Urine Casts NONE /LPF Urine Mucus NONE /LPF Urine Culture Indicated YES Urine Opiates Screen NEGATIVE NEGATIVE Urine Oxycodone Screen NEGATIVE NEGATIVE Urine Methadone Screen NEGATIVE NEGATIVE Urine Propoxyphene Screen NEGATIVE NEGATIVE Urine Barbiturates Screen POSITIVE H NEGATIVE Ur Tricyclic Antidepressants Screen NEGATIVE NEGATIVE Urine Phencyclidine Screen NEGATIVE NEGATIVE Urine Amphetamines Screen NEGATIVE NEGATIVE Urine Methamphetamines Screen NEGATIVE NEGATIVE Urine Benzodiazepines Screen POSITIVE H NEGATIVE Urine Cocaine Screen NEGATIVE NEGATIVE Urine Cannabinoids Screen NEGATIVE NEGATIVE My Orders Orders - ASHTYN GATES MD Acetaminophen (03/24/20 13:30) Ct Head Wo (03/24/20 13:30) Alcohol (03/24/20 13:30) Cbc With Automated Diff (03/24/20 13:30) Comprehensive Metabolic Panel (03/24/20 13:30) Drug Screen Stat (Urine) (03/24/20 13:30) Salicylate (03/24/20 13:30) Urinalysis (03/24/20 13:30) Troponin I Fs (03/24/20 13:30) Protime With Inr (03/24/20 13:30) Chest 1 View Ap/Pa Only (03/24/20 13:30) Ekg Tracing (03/24/20 13:30) Naloxone Injection (Narcan Injection) (03/24/20 13:30) Ns Iv 500 Ml (Sodium Chloride 0.9%) (03/24/20 13:30) Naloxone Injection (Narcan Injection) (03/24/20 13:23) Lactic Acid Analyzer (03/24/20 13:32) Urine Culture (03/24/20 14:00) Ceftriaxone For Iv Use (Rocephin For I (03/24/20 14:45) Medications Given in ED Current Medications Medications Dose Ordered Sig/Brenna Route Start Time Stop Time Status Last Admin Dose Admin Naloxone HCl 0.4 mg ONCE ONCE IV 03/24/20 13:30 03/24/20 13:32 DC 03/24/20 13:35 0.4 MG Vital Signs/I&O 03/24/20 13:25 Temp 36.6 Pulse 63 Resp 16 B/P (MAP) 98/53 (68) Pulse Ox 94 Capillary Refill : Progress Note : Time: 14:44 Progress Note I discussed at length with Dr. Escoto. [facility]. We discussed patient's labs and imaging. In mental status. She is accepted this patient for transfer to the hospital floor. Patient has received Rocephin in the emergency department. Dr. Escoto states that she will write any additional orders needed for admission. ECG Initial ECG Impression Date: March 24, 2020 Initial ECG Impression Time: 13:30 Initial ECG Rate: 63 Initial ECG Rhythm: Normal Sinus Initial ECG Intervals: WI Initial ECG Impression: Nonspecific Changes, Sinus Bradycardia Comment Initial EKG shows sinus rhythm with a prolonged WI interval with heart rate of 63. However on the set key driver does show the patient becomes bradycardic with a heart rate in the 40s. We will do medical evaluation treatment is needed. Departure Impression Primary Impression: Change in mental status Additional Impressions: UTI (urinary tract infection) Hyponatremia Bradycardia Disposition: 09 ADMITTED INPATIENT Condition: Stable Admissions Decision to Admit Reason: Admit from ER (General) Decision to Admit/Date: March 24, 2020 Time/Decision to Admit Time: 14:45 Transfer Transfer Reason: Exceeds level of care Time Spoke to Accepting Phy: 14:45 Transfer Progress Notes I discussed at length with Dr. Escoto. [facility]. We discussed patient's labs and imaging. In mental status. She is accepted this patient for transfer to the hospital floor. Patient has received Rocephin in the emergency department. Dr. Escoto states that she will write any additional orders needed for admission. Transfer Time: 14:45 Transfer Facility: [facility] Method of Transfer: EMS Departure-Patient Inst. Referrals: LOUANN COREY MD (PCP/Family) Primary Care Physician ASHTYN GATES MD March 24, 2020 13:39
--- OUTSIDE RECORDS SUMMARY | 2020-03-24 13:39 | XMS REPORT | Encounter Summary ---
Author Author [facility] [place], [place], 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 07/09/2018 oxyCODONE-acetaminophen Take 1 Tab by 0 (PERCOCET) 5-325 mg mouth every 6 tablet hours as needed for Pain, Moderate. 07/09/2018 zolpidem (AMBIEN) 10 mg Take 10 mg by 0 Oral tablet mouth nightly as needed. documented as of this encounter Plan of Treatment Not on filedocumented as of this encounter Visit Diagnoses Not on filedocumented in this encounter
--- OUTSIDE RECORDS SUMMARY | 2020-03-24 13:39 | XMS REPORT | Encounter Summary ---
Author Author [facility] [place], [place], [place] Organization [facility] [place], [place], [place] Address Unknown Phone Unavailable Care Team Providers Care Director Of Outreach Name Role Phone Claus Couch MD PCP Reason for Visit * Reason Comments Follow Up Encounter Details Care Team Description Date Type Department Karen Weiner DNP [address] [facility] [address] [place] [phone] Follow Up 02/14/2018 Telephone [facility] [place] [address] [facility] [address] [place] [phone] Social History Date Tobacco Use Types Packs/Day Years Used Never Assessed Sex Assigned at Date Recorded Not on file Industry Job Start Date Occupation Not on file Not on file Not on file Travel End Travel History Travel Start No recent travel history available. documented as of this encounter Miscellaneous Notes * Telephone Encounter - Lora Good RN - 02/14/2018 9:09 AM CDT Karen Weiner DNP 22 minutes ago (8:46 AM) You Walter Oconnor MD 3 days ago Is it OK for him to be off the Plavix for 5 days prior to surgery? BC (Routing comment) Walter Oconnor MD You 46 minutes ago (7:59 AM) yes (Routing comment) It is OK for patient to hold Plavix 5 days prior to surgery with Dr. Alberts I left message for Crystal to return my call.Lora Good RN I notified pt he was cleared for surgery and I faxed clearance to [phone].A yunior Good RN documented in this encounter Plan of Treatment Not on filedocumented as of this encounter Visit Diagnoses Not on filedocumented in this encounter
--- OUTSIDE RECORDS SUMMARY | 2020-03-24 13:39 | XMS REPORT | Encounter Summary ---
Author [facility] [place], [place], [facility] Organization [facility], [place], [place], [facility] Address Unknown Phone Unavailable Care Team Providers Care Synthetic Staple Extruder Name Role Phone Claus Couch MD PCP Reason for Visit * Auth/Cert Referred By Contact Referred To Contact Status Reason Specialty Diagnoses / Procedures [facility] 3 Medical Surgical [address] [place] [address] Multi Specialty Diagnoses Femur fracture, right Femur fracture, right [S72.91XA] P rocedures FEMUR INTRAMEDULLARY NAILING Encounter Details Care Team Description Date Type Department Chacho Echols MD [address] [place] [address] 07/05/2018 Anesthesia [facility] in Event Operating Room [address] [place] [address] Anesthesia Record Responsible Anesthesiologist Anesthesia Start Time Anesthesi a Stop Time Procedure Name Chacho Echols MD 07/05/18 1132 07/05/18 1307 RIGHT TROCHANTERIC FIXATION NAILING (Right Hip) Date Time Event Comment 1016 AN Equip Check Anesthesia equi pment and materials checked in accordance with local policy. 2017 1049 Intended Opioids 1106 1132 An Start 1134 An Start Data 1136 Pre-Induction Immediate pre-induc tion anesthetic assessment performed. Vital signs as noted on graphic. 1136 An Induction PT ID, MONITORING A PPLIED, PRE O2, ORAL ASSESSMENT, SMOOTH IV INDUCTION 1137 An Intubation AIRWAY ASSESSMENT,P RE O2 ,ASSESSMENT OF AIRWAY, SMOOTH IV INDUCTION,EASY MASK VENTILATION, INTUBATION AND VISUAL IZE CHORD, DENT IN TACT TO OR,BBS, ET SECURE, TAPE OU, ESOPH STETH OR NASAL TEMP PROBE, TAPE OU, ARMS OUT <90 DEGREES ON FOAM WITH TIE, OR TU CKED WITH FOAM, SOFT ROLL, HEAD IN NEUTRAL , SAFETY STRAP ON PT 1155 Anesthesia Ready 1241 An Extubation Emergence uneventfu l Awake, spontaneous respirations. Adequate muscle strength demonstrated Adequate tidal vo lume. Orapharynx suctioned. Extubated with positive pressure ventil ation. O2 mask 10 L, hob up 1242 an stop data 1242 Quick Note 1243 Quick Note O2 MASK AT 10 L , T RANSFER TO OPD OR PACU AWAKE AND ALERT, VSS, SPONTANIOUS RESP, VSS 1247 Quick Note Emesis in PACU X1 s uction 1252 Quick Note Blood Glucose 174 1307 An Stop 854 Follow-up 2018 Complete Meds Name Total propofol (DIPRIVAN) injection 100 mg rocuronium (ZEMURON) 10mg/mL injection 30 mg dexamethasone (DECADRON) 4 mg/mL 4 mg injection ondansetron (ZOFRAN) 4 mg/2 mL injection 4 mg 4 mg fentaNYL (SUBLIMAZE) PF 50mcg/mL 250 mcg injection ePHEDrine 50 mg/mL injection 30 mg phenylephrine 100 mcg/mL injection 250 mcg clindamycin (CLEOCIN) 900 mg in dextrose 900 mg 5% 50 mL IVPB albuterol sulfate 90 mcg/Actuation 3 Puff inhaler 2 Puff glycopyrrolate (ROBINUL) 0.2 mg/mL 0.2 mg injection neostigmine (BLOXIVERZ) 1 mg/mL 1 mg injection lactated Ringers solution 400 mL * Name Desflurane % Desflurane O2 N2O Inspired N2O O2 * No blood administrations on file. Removal Type Details Placement Pressure 07/04/18; 1951; Yes; 1; coccyx; Stage 1 07/04/181951 by Kumar Powell RN 07/07/181822 by Agustina Gamez RN Pressure 09/04/17; 0750; Yes; 1; Left:; coccyx; 09/04/17 0750 by Kumar Villalba Stage 2; 07/07/18; 1822 Isha Alvarez RN 07/07/18 1823 by Agustina Gamez, PRIYA Pressure 09/04/17; 0750; Yes; 2; midline; 09/04 0750 by Deejay, Injury gluteal; Stage 2; 07/07/18; 1823 Isha Alvarez RN 07/07/18 1823 by Agustina Gamez, PRIYA Pressure 09/04/17; 0750; Yes; 3; Right:; coccyx; 09/04/17 0750 by Deejay, Injury Stage 2; 07/07/18; 1823 Isha Alvarez RN 07/09/18 1643 by Nikky Tavares RN Peripheral Pre-Hospital Start: Yes; Orientation: 07/04/18 0000 by KRISHNA Robledo Left; Location: ; Device: Angiocath; PRIYA Mcclendon Gauge: 20 gauge; Needle Length: 1 in length; Insertion Attempts: 1; Patient Tolerance: tolerated well 07/05/18 1242 by Nuris Cruz CRNA Endotrache Type: ETT, Oral; Cuff Pressure: minimal 07/05/18 1137 by fred Tillman Airway leak technique, minimal occluding Percy Alvarez CRNA volume, cuff inflated; Size: 8; Site: mouth; Attempts: 1; FOV: I; cm: 20; Device: Straight Blade; Blade: 2; Secured: secured with tape; Verification: Auscultated bilateral breath sounds, Equal chest movement, Continuous waveform capnography 07/10/18 0532 by PROVIDER, DISCHARGE PAT IENT Incision 07/05/18; 1244; surgical incision; 1244 by Right Troy; hip; 07/10/18; 0532 PRIYA John 07/06/18 1755 by Buffy Brand, [employer] Indwelling 07/05/18; 1309; Indwelling double lumen 07/05/18 1309 by Amauri Urethral catheter; 16 Fr; inserted; 1; 07/06/18; PRIYA Rodriguez Catheter 1755 documented in this encounter Social History Date Tobacco Use Types Packs/Day Years Used Never Assessed Sex Assigned at Date Recorded Not on file Industry Job Start Date Occupation Not on file Not on file Not on file Travel End Travel History Travel Start No recent travel history available. documented as of this encounter OR Notes * Anesthesia Post-Op Follow-up Note - Junior Miramontes CRNA - 07/06/2018 8:55 AM CDT Post Anesthesia Evaluation Sign Out Vitals: BP 133/66 | Pulse 93 | Temp 36.8 C | Resp 19 | Ht 5' 6" (1.676 m) | Wt 67 kg (147 lb 11.2 oz) | SpO2 98% | BMI 23.84 kg/m Pain Rating: Pain Rating: Rest: 9 (07/06/18 0813) Pain Rating: Activity: 10 (07/06/18 0813) Nausea/Vomiting: no nausea and no vomiting Post-Op hydration: well hydrated Respiratory function: no respiratory symptoms Airway patency: normal Cardiovascular function: Normal - Regular rate and rhythm Mental status, LOC: 0=alert; keenly responsive Junior Miramontes CRNA 07/06/2018; 8:55 AM * Anesthesia Postprocedure Evaluation - Chacho Echols MD - 07/05/2018 2:16 PM CDT Post Anesthesia Evaluation Vitals: BP 125/58 | Pulse 91 | Temp 36.7 C (Temporal) | Resp 14 | Ht 5' 6 " (1.676 m) | Wt 67 kg (147 lb 11.2 oz) | SpO2 100% | BMI 23.84 kg/m Pain Rating: Pain Rating: Rest: 10 (07/05/18 1333) Pain Rating: Activity: 5 (07/05/18 0938) Multimodal analgesia pain management approach: No Nausea/Vomiting: no nausea and no vomiting Post-Op hydration: well hydrated Respiratory function: no respiratory symptoms Airway patency: normal Cardiovascular function: Normal - Regular rate and rhythm Mental status, LOC: 0=alert; keenly responsive Patient participated in evaluation: yes Unanticipated Events: no Chacho Echols MD * Anesthesia Handoff - Peryc Tillman CRNA - 07/05/2018 1:07 PM CDT Post-Anesthetic transfer of care report elements to appropriate post-anesthesia recovery environment completed in accordance with procedure. I completed my handoff to the receiving nurse during which we: 1. Identified the patient 2. Identified the responsible provider 3. Reviewed the pertinent medical history 4. Discussed the surgical course 5. Reviewed intra-op anesthesia management and issues during anesthesia 6. Set expectations for post-procedure period 7. Allowed opportunity for questions and acknowledgement of understanding. Vital Signs: BP: 197/98 (07/05/2018 12:48 PM) Pulse: 82 (07/05/2018 9:38 AM) Heart Rate: 93 bpm (07/05/2018 12:48 PM) Temp: 36.9 C (07/05/2018 9:38 AM) Resp: 18 (07/05/2018 9:38 AM) SpO2: 100 % (07/05/2018 12:48 PM) 1:07 PM Percy Tillman CRNA * Anesthesia Preprocedure Evaluation - Chacho Echols MD - 07/05/2018 10:50 AM CDT Relevant Problems (+) COPD (chronic obstructive pulmonary disease) (+) Coronary artery disease involving [place] coronary artery of [place] heart wit h angina pectoris (+) Diabetes (+) Dyspnea, chronic (+) Hypertension Anesthesia Evaluation Patient summary reviewed and Nursing notes reviewed Airway Mallampati: I TM distance: >3 FB Neck ROM: full Dental Comment: edentulous Pulmonary breath sounds clear to auscultation (+) COPD moderate, decreased breath sounds, (-) pneumonia, asthma, shortness of breath, recent URI, sleep apnea ROS comment: Smoker 2 ppd Home O2 qhs Cardiovascular Exercise tolerance: poor (+) hypertension, past PR, CAD, CABG/stent (CABG-"4" bypass grafts 1999 and "17 stents"), angina, CHF, MCDERMOTT (chronic ), (-) pacemaker, valvular problems/murmurs, dysrhythmias, orthopnea, PND ECG reviewed Rhythm: regular Rate: normal ROS comment: EKG 07/04/2018 Rate: 83 Sinus rhythm with 1st degree AV block Low voltage QRS Nonspecific T wave abnormality Abnormal ECG ECHO 01/21/2018 SUMMARY: Normal left ventricular systolic function. EF of 60 to 65% with no evidence of r egional wall motion abnormality with grade I diastolic dysfunction, elevated beatriz ling pressures. Mild mitral valve regurgitation. Mild left atrial enlargement. B icuspid aortic valve with aortic sclerosis, no evidence of stenosis. Trivial aor tic insufficiency. Mildly dilated aortic root. Normal right ventricular function . No evidence of pericardial disease. Neuro/Psych (+) seizures, psychiatric history (depression) (-) neuromuscular disease, TIA, CVA, headaches GI/Hepatic/Renal (+) GERD well controlled, (-) hiatal hernia, PUD, hepatitis, liver disease, renal disease, bowel prep Endo/Other (+) diabetes mellitus type 2, arthritis (-) hypothyroidism, hyperthyroidism, blood dyscrasia Abdominal - normal exam Anesthesia History No history of anesthetic complications, no history of difficult intubation, no h istory of malignant hyperthermia, no history of PONV and no pseudocholinesterase deficiency. Other findings: Results for OLIVERIO TINSLEY ( ) as of 07/05/2018 11 :00 07/05/2018 03:45 WBC: 7.8 RBC: 3.89 (L) HEMOGLOBIN: 10.6 (L) HEMATOCRIT: 32.8 (L) MCV: 84.3 MCH: 27.2 MCHC: 32.3 PLATELETS: 446 MPV: 7.8 (L) RDW: 14.4 RDW-STDEV: 43.9 NEUTROPHILS: 68 LYMPHOCYTES: 19 (L) MONOCYTES: 12 (H) EOSINOPHILS: 0 BASOPHILS: 0 IMMATURE GRANULOCYTES: 1 NEUTROPHIL ABSOLUTE: 5.34 LYMPHOCYTE ABSOLUTE: 1.45 MONOCYTE ABSOLUTE: 0.94 EOSINOPHIL ABSOLUTE: 0.03 BASOPHILS ABSOLUTE: 0.02 IMMATURE GRANULOCYTES ABSOLUTE: 0.04 SODIUM: 136 POTASSIUM: 4.2 CHLORIDE: 101 CO2: 23 CALCIUM: 8.7 (L) BUN: 10 CREATININE: 0.66 (L) GFR: >60 GFR, : >60 GLUCOSE: 142 (H) 07/05/2018 07:27 Anesthesia Plan ASA 4 General Intravenous induction Supraglottic airway maintenance NPO status > 8 hours Anesthetic plan and risks discussed with Patient. Plan discussed with Nurse Boatbuilder Supervisor. Post-op Pain Control Plan to use Per surgeon and IV or IM medication for post-op pain control. Plan for postoperative opioid use Smoking Compliance Patient did not smoke on day of surgery documented in this encounter Miscellaneous Notes * Addendum Note - Junior Miramontes CRNA - 07/06/2018 8:55 AM CDT Addendum created 07/06/18854 by Junior Miramontes CRNA Anesthesia Event edited, Sign clinical note documented in this encounter Plan of Treatment Not on filedocumented as of this encounter Visit Diagnoses Not on filedocumented in this encounter Administered Medications Action Date Dose Rate Site Medication Order MAR Action 07/05/2018 11:40 AM CDT 3 Puffs albuterol sulfate 90 mcg/Actuation Given inhaler 2 Puff 2 Puff, Inhalation, EVERY 4 HOURS PRN RESPIRATORY, Starting 07/04/18 at 1725, Until 07/09/18 at 1932, Shortness of Breath, Wheezing, Routine 07/05/2018 11:31 AM CDT 900 mg clindamycin (CLEOCIN) 900 mg in dextrose Given 5% 50 mL IVPB 900 mg, IV, PRE-PROCEDURE ONCE, 1 dose, Starting Wed07/05/18 at 1038, Until Wed07/05/18 at 1131, Routine, Pre-op, Antibiotic Indication: Surgical prophylaxis 07/05/2018 11:42 AM CDT 4 mg dexamethasone (DECADRON) injection Given INTRA-PROCEDURE PRN, Starting Wed07/05/18 at 1142, Until Wed07/05/18 at 1307, Routine, Anesthesia Intra-op 07/05/2018 12:23 PM CDT 10 mg ePHEDrine injection Given INTRA-PROCEDURE PRN, Starting Wed07/05/18 at 1142, Until Wed07/05/18 at 1307, Routine, Anesthesia Intra-op 10 mg Given 07/05/2018 11:50 AM CDT 10 mg Given 07/05/2018 11:42 AM CDT 07/05/2018 1:05 PM CDT 50 mcg fentaNYL PF (SUBLIMAZE) 50 mcg/mL Given injection INTRA-PROCEDURE PRN, Starting Wed07/05/18 at 1134, Until Wed07/05/18 at 1307, Pain (See admin instructions), Routine, Anesthesia Intra-op 50 mcg Given 07/05/2018 12:52 PM CDT 50 mcg Given 07/05/2018 12:43 PM CDT 07/05/2018 12:39 PM CDT 0.2 mg glycopyrrolate (ROBINUL) injection Given INTRA-PROCEDURE PRN, Starting Wed07/05/18 at 1239, Until Wed07/05/18 at 1307, Routine, Anesthesia Intra-op 07/05/2018 11:34 AM CDT lactated Ringers solution Continue IV, at 40 mL/hr, CONTINUOUS, Starting from Pre-Op 07/05/18 at 0945, Until Nancy 07/07/18 at 1251, Stat 40 mL/hr New Bag 07/05/2018 9:52 AM CDT 07/05/2018 12:39 PM CDT 1 mg neostigmine (BLOXIVERZ) 1 mg/mL Given injection INTRA-PROCEDURE PRN, Starting Wed07/05/18 at 1239, Until Wed07/05/18 at 1307, Routine, Anesthesia Intra-op 07/05/2018 11:34 AM CDT 4 mg ondansetron (ZOFRAN) 4 mg/2 mL injection Given 4 mg 4 mg, IV, EVERY 6 HOURS PRN, Starting 07/04/18 at 1726, Until 07/09/18 a t 1932, Nausea/Emesis, Routine 07/05/2018 12:23 PM CDT 100 mcg phenylephrine 1 mg/10 mL (100 mcg/mL) Given injection INTRA-PROCEDURE PRN, Starting Wed07/05/18 at 1150, Until Wed07/05/18 at 1307, Routine, Anesthesia Intra-op 50 mcg Given 07/05/2018 12:13 PM CDT 100 mcg Given 07/05/2018 11:50 AM CDT 07/05/2018 11:36 AM CDT 100 mg propofol (DIPRIVAN) injection Given INTRA-PROCEDURE PRN, Starting Wed07/05/18 at 1136, Until Wed07/05/18 at 1307, Anesthesia Intra-op 07/05/2018 11:36 AM CDT 30 mg rocuronium (ZEMURON) injection Given INTRA-PROCEDURE PRN, Starting Wed07/05/18 at 1136, Until Wed07/05/18 at 1307, Routine, Anesthesia Intra-op documented in this encounter
--- OUTSIDE RECORDS SUMMARY | 2020-03-24 13:39 | XMS REPORT | Encounter Summary ---
Author Author [facility] [place], [place], [facility] Organization [facility] [place], [place], [facility] Address Unknown Phone Unavailable Care Team Providers Care Video Game Engineer Name Role Phone Claus Couch MD PCP Reason for Visit * Reason Comments Fall Hip Pain * Auth/Cert Referred By Contact Referred To Contact Status Reason Specialty Diagnoses / Procedures [facility] 3 Medical Surgical [address] [facility] [place] [address] Multi Specialty Diagnoses Femur fracture, right Femur fracture, right [S72.91XA] P rocedures FEMUR INTRAMEDULLARY NAILING Encounter Details Care Team Description Date Type Department Zachary Hansen, DO [address] [address] [place] [address] RIGHT TROCHANTERIC FIXATION NAILING 07/05/2018 Surgery [facility] in Operating Room [address] [facility] [place] [address] Social History Date Tobacco Use [...] PM CDT Hospitalist Discharge Summary PATIENT: Oliverio Tinsley AGE: 67 y.o. CSN: [id number] SEX: male Date of : 1950 Admit date: 07/04/2018 Reason for Hospitalization: Right femoral neck fracture s/p fall Discharge date: 07/09/2018 Discharge Dx Principal Problem: Closed fracture of head of right femur Active Problems: Coronary artery disease involving alutiiq [...] 172* Consults: orthopedic surgery Hospital Course: Oliverio Tinsley is a 67 y.o., male who presented [...] insurance refused to approve inpatient re hab. nursing home facility was then planned which was discussed [...] as needed for Pain, Moderate. Max Daily [place] unt: 6 Tablets Signed by: Ariana Galaviz [...] care for by by physicians in the [facility] program. At the time of your discharge [...] * Instructions* Ariana Galaviz MD - 07/08/2018 [facility] of [place], [place] tel- [phone] has been notified to follow up with Nurse assessment visits and home PT/OT visits. Take your medications as prescribed Follow up with PCP and orthopedic as scheduled * Attachments The following attachments cannot be sent through Care Everywhere.* Hip Fracture: Surgery: General Info (Palestinian) * acetaminophen and oxycodone (Palestinian) documented in this encounter Medications at Time [...] both his PCP appt with Dr. Iza pena d a f/u with Ortho from his hip surgery. [...] discharged home with home health and previous 31/05 care and left facility with sister via private veh icle. * Pamela Calero RN - 07/09/2018 4:13 PM CDT CM: Natasha [facility] of [place] ([phone]) notified of discharge to home. Stacia Calero RN IP Care Management (ext:[phone]) * Frances Appiah RN - 07/08/2018 4:37 PM CDT HHC CONSULT NOTE re HHC orders entered for Skilled Nurse Visits and home PT/OT. Per [facility] choice done by Edson POWERSproducer assistant, I have processed the orders and info to [facility] of [place], [place] to follow up at home. BUFFY POWERS [facility] liaison * Venu Silva MD - 07/08/2018 4:28 PM CDT Pt wanted to go to IP rehab and PT also advised it. Referral were send and his i nsurance denied it. Did peer to peer for approval for Inpatient rehab and spoke with Dr suárez, medical collections from [facility]. Had discussion regarding his angie [...] Go RN - 07/08/2018 4:25 PM CDT [facility] liaison setting up [facility]. Notified Hellen, patient sister and she will be transport tomorrow home. Alexandra Go RN, BSN,CCM, Calculus Professor [phone] (ext. [phone]) * Venu Silva MD - 07/08/2018 1:34 [...] GLUCOSE 218 (H) 74 - 99 mg/dL [employer]IND [employer]ARM OPERATIONS MANAGER NAME sara harris POC GLUCOSE Result Value Ref Range POC GLUCOSE 172 (H) 74 - 99 mg/dL [employer]ARM OPERATIONS MANAGER NAME napoleon galvin CBC WITH DIFFERENTIAL Result [...] GLUCOSE 182 (H) 74 - 99 mg/dL [employer]IND [employer]ARM OPERATIONS MANAGER NAME Flori Teresa POC GLUCOSE Result Value Ref Range POC GLUCOSE 164 (H) 74 - 99 mg/dL [employer]ARM OPERATIONS MANAGER NAME Flori Teresa Telemetry: Personally reviewed. NSR Microbiology: Urine culture: no growth till date ASSESSMENT: Patient Active Problem List Diagnosis Code Chest pain, chronic R07.9 Coronary artery disease involving alutiiq coronary artery of alutiiq heart wit h angina pectoris I25.119 Peripheral [...] sister wants to go back home w [facility]. If does not get approval today then possible discharge tomorrow to home with home health Pain management with oral North English and IV morphine depending on pain level [...] Hellen to discuss discharge planning for today. Si torsten asking about patient going to [facility]. Discussed patient s reluctance for placement. She states they are not willing to consider skilled care. Sister plans to speak with her brother. Patient has [employer] insurance and will need authorized. Met with patient in room to discuss referral to [facility]. Patient is ag reeable to sending a referral. He states if not accepted for rehab he will re turn home with [facility] for therapy and continue in home services. Referral sent to [facility]. Spoke with Cora. She will review and call back. Received message from Patti Peña with [employer] insurance ([place] medicaid pr ogram). Patti assists with setting up resources for patient. Called Patti @ [phone]. Message left on voice mail to return call. 2:02 Received call from February/[facility]. [employer] insurance has denied acute r ehab. Number for peer to peer if physician wants to appeal decision is . Pending . Notified Dr. Silva. 2:[address] Silva. He called number for peer to peer and left a message for return call. If patient is not approved will plan for home tomorrow with [facility] to continue therapy. Patient not agreeable to skilled. Called patients sister Winifred hooverjanice. Message left on voice mail. Emmie Butler, [phone] Tinning Equipment Tender/Care Managment * Emmie Butler LCSW - 07/07/2018 1:55 PM CDT Physician recommending short term skilled placement. Met with patient to discuss . Patient states he was previously in a facility and prefers to go home. He has in home services set up in the home through [facility]. Contacted patients sister/ DPROSALES. Message left to return call to discuss discharge planning needs. SW spoke with patients sister on admission and she refused placement for patient stating they will only be open to [facility] for therapy only. Physician planning to discharge patient tomorrow. 4:43 Received message from Hellen aguiar/MARYAN. Returned call ( [phone]) to up date on discharge. No answer will try again later. Emmie Butler, [phone] Tinning Equipment Tender/Care Management * Venu Silva MD - 07/07/2018 [...] GLUCOSE 128 (H) 74 - 99 mg/dL W[employer] FARM OPERATIONS MANAGER NAME terry miles POC GLUCOSE Result Value Ref Range POC GLUCOSE 152 (H) 74 - 99 mg/dL [employer] OPERATIONS MANAGER NAME terry miles POC GLUCOSE Result Value Ref Range POC GLUCOSE 120 (H) 74 - 99 mg/dL [employer]ARM OPERATIONS MANAGER NAME kristin seals CBC WITH DIFFERENTIAL Result Value Ref Range [...] GLUCOSE 161 (H) 74 - 99 mg/dL [employer] OPERATIONS MANAGER NAME harrishopTo POC GLUCOSE Result Value Ref Range POC GLUCOSE 157 (H) 74 - 99 mg/dL [employer] FARM OPERATIONS MANAGER NAME kimberly sara Telemetry: Personally reviewed. NSR Microbiology: Urine culture: no growth till date ASSESSMENT: Patient Active Problem List Diagnosis Code Chest pain, chronic R07.9 Coronary artery disease involving alutiiq coronary artery of alutiiq heart wit h angina pectoris I25.119 Peripheral [...] for discharge planning Pain management with oral North English and IV morphine depending on pain level [...] CDT ORTHOPEDIC ATTENDING PROGRESS NOTE PATIENT: Oliverio Tinsley AGE: 67 y.o. : 1950 CSN: [id number] PCP: Claus Couch MD Admit Date: 07/04/2018 4:17 PM Admit Day: Hospital Day: 4 Date of Service: 07/07/2018 Admission Diagnosis: Femur fracture, right [S72.91XA] Subjective Subjective: Oliverio Tinsley is a 67 y.o. male s/p 2 [...] Date 07/07/18 0700 - 07/08/18 0659 Shift [id number] 24 Hour Total I N T A [...] postoperatively. 2. DVT prophylaxsis with Plavix, taking PILOT CAN ROUTER 3. Weight Bearing Status: 50% PWB RLE [...] no cyanosis Skin: no new rash : sanchez cath in place, no hernia Muscloskeletal: Right hip tender barbara at surgical site, restricted ROM of hip LABS: Results for orders placed or performed during the hospital encounter of 07/04/18 (from the past 24 hour(s)) POC GLUCOSE Result Value Ref Range POC GLUCOSE 135 (H) 74 - 99 mg/dL [employer]IND [employer]ARM OPERATIONS MANAGER NAME sara harris POC GLUCOSE Result Value Ref Range POC GLUCOSE 132 (H) 74 - 99 mg/dL [employer]IND FARM OPERATIONS MANAGER NAME katlin barrientos CBC WITH DIFFERENTIAL Result Value Ref Range [...] GLUCOSE 141 (H) 74 - 99 mg/dL WIND FARM OPERATIONS MANAGER NAME terry miles POC GLUCOSE Result Value Ref Range POC GLUCOSE 128 (H) 74 - 99 mg/dL W[employer] FARM OPERATIONS MANAGER NAME terry miles Telemetry: Personally reviewed. NSR Microbiology: Urine culture: no growth till date ASSESSMENT: Patient Active Problem List Diagnosis Code Chest pain, chronic R07.9 Coronary artery disease involving alutiiq coronary artery of alutiiq heart wit h angina pectoris I25.119 Peripheral [...] for discharge planning Pain management with oral North English and IV morphine depending on pain level [...] CDT ORTHOPEDIC ATTENDING PROGRESS NOTE PATIENT: Oliverio Tinsley AGE: 67 y.o. : 1950 CSN: [id number] PCP: Claus Couch MD Admit Date: 07/04/2018 4:17 PM Admit Day: Hospital Day: 3 Date of Service: 07/06/2018 Admission Diagnosis: Femur fracture, right [S72.91XA] Subjective Subjective: Oliverio Tinsley is a 67 y.o. male s/p 1 [...] Intake/Output Summary (Last 24 hours) at 07/06/18 08 Last data filed at 07/05/18 1800 Gross [...] postoperatively. 2. DVT prophylaxsis with Plavix, taking PILOT CAN ROUTER 3. Weight Bearing Status: 50% PWB RLE 4. PT/OT for mobility, ROM, gait training and ADLs. Please advise home vs SNF vs Inpatient rehab. 5. Pain control with oxycodone, morphine, and Tylenol. ROLAND [facility] 07/06/2018 * Hector Wild RN - 07/05/2018 6:26 PM CDT Pt had repair of L femur today. VSS. Patient is on 1L O2 by GA. Family at bedsid e. Pt drowsy since return from surgery but arouses to verbal stimuli, IV antibio tic per emar. Call light within reach. * Cherie Barrientos RN - 07/05/2018 3:30 PM CDT Wound [...] Pt cachetic. D/w att ending RN and CLOTH SHRINKING SUPERVISOR. [phone] * Hector Wild RN - 07/05/2018 [...] to brendon wrap. No additional swelling noted. Sanchez patent and draining. Will continue to monitor p atient. * Bahman Davis MD - 07/05/2018 8:31 AM CDT Admit Date: 07/04/2018 Hospital LOS: 1 day Subjective: Patient With likely right hip fracture, CT right hip images at [place] showi ng "Cortical irregularity along the superior margin [...] Omar Mcnulty DNP 1 mg at 07/05/18 0821 phenytoin sodium (DILANTIN) extended release capsule 200 mg 200 mg Oral BID Omar Mcnulty DNP 200 mg at 07/05/18 0820 simvastatin (ZOCOR) tablet 40 mg 40 mg Oral Daily BEDTIME Omar Mcnulty D [employer] DRIVER 40 mg at 07/04/18 2247 ramipril (ALTACE) capsule 5 mg 5 mg Oral Daily LUNCH Omar Mcnulty DNP OLANZapine (ZyPREXA) tablet 2.5 mg 2.5 mg Oral Daily BEDTIME Omar Mcnulty DNP 2.5 mg at 07/04/18 2248 tamsulosin (FLOMAX) SR 24 hour capsule 0.4 mg 0.4 mg Oral Daily SUPPER Omar Garcia DNP 0.4 mg at 07/04/18 2247 albuterol sulfate 90 mcg/Actuation inhaler 2 Puff 2 Puff Inhalation Resp q 4 h PRN Omar Mcnulty DNP metoprolol succinate (TOPROL XL) SR 24 hour tablet 12.5 mg 12.5 mg Oral Consuelo ly Omar Mcnulty DNP 12.5 mg at 07/05/18 0821 ezetimibe (ZETIA) tablet 10 mg 10 mg Oral Daily BEDTIME Omar Mcnulty DNP 10 mg at 07/04/18 2247 fenofibrate nanocrystallized (TRICOR) tablet 145 mg 145 [...] mg Oral Daily BEDTIME Omar Mcnulty D [employer] DRIVER 50 mg at 07/05/18 0004 dextrose 5% [...] (HumaLOG) variable dose injection subCUT Daily BEDTIME Omar Garcia DNP oxyCODONE-acetaminophen (PERCOCET) 7.5-325 mg per tablet 1 Tablet 1 Tablet Oral q 4 hour PRN Omar Mcnulty DNP morphine 4 mg/mL injection 4 mg 4 mg IV q 2 hour PRN Adam Busch DO 4 mg at 07/05/18 0815 [COMPLETED] [...] 07/04/18 4:30 PM Narrative Stationary ECG Study [address] [address] Test Date: 07/04/2018 4:26 PM Pat Name: OLIVERIO TINSLEY Department: 30 Room: [facility] Gender: Male Cotton Broker: RIVER : 1950 Requested By: Order Number: [id number] Reading MD: Severity: Abnormal ECG Measurements Intervals Reading Rate: 83 P: 38 NH: 222 QRS: 4 QRSD: 80 T: 88 [...] GLUCOSE 162 (H) 74 - 99 mg/dL W[employer] FARM OPERATIONS MANAGER NAME katlin barrientos TROPONIN 6 HR, 5TH GEN Collection Time: 07/04/18 10:57 PM Result Value Ref Range TROPONIN T, 6 HR 5TH GEN 40 (H) <=15 ng/L DELTA 6HR TROPONIN T 5 <12 Narrative Troponin elevated. Delta indeterminate. POC GLUCOSE Collection Time: 07/04/18 10:57 PM Result Value Ref Range POC GLUCOSE 136 (H) 74 - 99 mg/dL WIND FARM OPERATIONS MANAGER NAME shola batista CBC WITH DIFFERENTIAL Collection [...] GLUCOSE 148 (H) 74 - 99 mg/dL W[employer] FARM OPERATIONS MANAGER NAME sara harris Physical Exam: Constitutional: See [...] femur Active Problems: Coronary artery disease involving alutiiq coronary artery of alutiiq heart with angina pectoris COPD (chronic obstructive pulmonary disease) Hypertension Hyperlipidemia with target LDL less than 70 Tobacco dependence Diabetes Elevated troponin Epilepsy Plan: See orders. Principal Problem: Closed fracture of head of right femur -Appreciate orthopedics, Dr. Hansen. Plan OR today for repair Active Problems: Coronary artery disease involving alutiiq coronary artery of alutiiq heart with angina pectoris -Stable without acute [...] repair of hip. [facility]. Signed: Bahman Davis MD 07/05/2018, 8:31 AM documented in this encounter H&P Notes * Omar Mcnulty DNP - 07/04/2018 5:31 PM CDT Hospitalist Admission History and Physical PATIENT: Oliverio Tinsley AGE: 67 y.o. CSN: [id number] : 1950 PCP: Claus Couch MD HPI: Oliverio Tinsley is a 67 y.o. White male a patient of Claus Couch MD who is being admitted through the emergency room with chief complaint of fall right hi p fx. [facility] right hip pain secondary to a [...] had troponin of 43 before transferring to [facility] for Or tho consult. Pt again states [...] REPAIR HX HERNIA INGUINAL REPAIR HX PTCA [place] CYSTOURETHROSCOPY N/A 09/04/2017 CYSTOSCOPY WITH CLOT EVACUATION BLADDER performed by Walter Tinsley MD at [facility] UROLOGY SURGERY PROCEDURE UNLISTED N/A 09/04/2017 BLADDER BIOPSY performed by Walter Tinsley MD at [facility] UROLOGY SURGERY PROCEDURE UNLISTED Bilateral 09/04/2017 PYELOGRAM RETROGRADE BILATERAL performed by Walter Tinsley MD at [facility] N OR Home Medications: (Not in a [...] 96 % - - 07/04/18 1628 (!) 97.5 F (36.4 C) Oral - 16 96 % 6' (1.829 m) 63.5 kg (140 lb) 07/04/18 1625 (!) - - 81 20 97 % - [...] No results found. Past records available through [facility] Case Reviewed with ER Provider, Dr. Go Assessment: Principal Problem: Closed fracture of head of right femur Active Problems: Coronary artery disease involving alutiiq [...] 07/04/2018 5:34 PM CC. Claus Couch MD [address] [place] [id number] documented in this encounter Consult Notes * Zachary Hansen DO - 07/05/2018 11:03 AM CDT Associated Order(s): IP CONSULT TO ORTHOPEDIC SURGERY IN PATIENT H&P/CONSULT PATIENT: Oliverio Tinsley AGE: 67 y.o. : 1950 CSN: [id number] PCP: Claus Couch MD Admit Date: 07/04/2018 4:17 PM Subjective: Closed fracture of head of right femur HISTORY OF PRESENT ILLNESS: Oliverio Tinsley is a 67 y.o. male being seen today for a right nondisplaced femor al neck fracture that was seen on CT scan obtained at [place]. He states shruti t his right hip [...] pain, chronic R07.9 Coronary artery disease involving alutiiq coronary artery of alutiiq heart wit h angina pectoris I25.119 Peripheral [...] REPAIR HX HERNIA INGUINAL REPAIR HX PTCA [place] CYSTOURETHROSCOPY N/A 09/04/2017 CYSTOSCOPY WITH CLOT EVACUATION BLADDER performed by Walter Tinsley MD at [facility] OR [place] UROLOGY SURGERY PROCEDURE UNLISTED N/A 09/04/2017 BLADDER BIOPSY performed by Walter Tinsley MD at [facility] UROLOGY SURGERY PROCEDURE UNLISTED Bilateral 09/04/2017 PYELOGRAM RETROGRADE BILATERAL performed by Walter Tinsley MD at [facility] OR Family History Problem Relation Age of [...] Lives alone with his dog. 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 POSTOPERATIVE DIAGNOSIS: Right nondisplaced femoral neck fracture. PROCEDURE: Percutaneous pinning of right nondisplaced femoral neck fracture. LARRY OPERATOR: None. INDICATION FOR PROCEDURE: Oliverio is a 67-year-old man, who proceeded to fall o nto his right hip and sustained a nondisplaced femoral neck fracture that was se en on a CT. He subsequently was transferred from [place] to [place] for treat ment of his right femoral [...] [facility] We [...] Zachary Hansen DO RS/medq VOICE JOB ID: [id number] DOCUMENT ID: [id number] cc: Zachary Hansen DO * Brief Op Note - Zachary Hansen DO - 07/05/2018 12:42 PM CDT Brief Postoperative Note Oliverio Tinsley [id number] Pre-operative Diagnosis: Femur fracture, right Post-Op Diagnosis: [...] Implant Name Type Inv. Item Serial No. Supervisor Toy Assembly Lot No. LRB No. Used Action SCREW ALEXA 7.3X75MM THRD 32MM 209.875 - [id number] Screw SCREW ALEXA 7.3X75MM THR D 32MM 209.875 [employer] Right 1 Implanted SCREW ALEXA 7.3X85MM THRD 32MM 209.885 - [id number] Screw SCREW ALEXA 7.3X85MM THR D 32MM [...] 4:26 PM CDT Patient to ER via [facility] from [facility] for c/o left hip pain after fa lling in bathroom today. Patient is AAO x 4 on arrival to ER. Patient received F entanyl 100 mcg and Zofran 4 mg IV PILOT CAN ROUTER by [facility]. Patient changed into gown pl aced on cardiac and pulse ox monitor. EKG completed. Patient currently denies ch est pain. Patient oriented to room with call light in reach. * Love Maldonado RN - 07/04/2018 4:18 PM CDT Bed: T5 Expected date: 07/04/18 Expected time: 4:09 PM Means of arrival: [facility] IV Comments: [facility] Transfer * Kentrell Go DO - 07/04/2018 4:17 PM CDT HISTORY OF PRESENT ILLNESS Oliverio Tinsley, a 67 y.o. male presents to the ED with a Chief Complaint of Fall and Hip Pain Subjective H&P PERFORMED AT: 1648 67 YO MALE PRESENTS TO ED VIA EMS FROM [facility] FOR LEFT HIP PAIN SEC ONDARY TO [...] by: The patient and a healthcare provider belt picker used: No Arrived by: Private vehicle Arrived [...] Temp src: Oral (07/04/181627), SpO2: 97 % (07/04/18 1625), Height: 6' (182.9 cm) (07/04/181627), Weigh t: [...] REVIEWED CHART, LABS, AND RADIOLOGY STUDIES FROM [facility]. MDM PT WAS SEEN AND EVALUATED AT [facility] AND HAD XRAYS THAT REVEALED LEF T [...] ag 1719: DISCUSSED CASE WITH DR. HANSEN, IT GENERALIST, WHO WILL ACCEPT ADMI SSION OF PT. [...] User Date/Time Comment Admit Kentrell Burroughs DO WedJul 04, 2018 4:[address] GO REVIEWED LABS, RADIOLOGY STUDIES, VITAL SIGNS, NURSING NOTES, AND DISC USSED WITH PT. I AGREE WITH NURSING NOTES UNLESS NOTED IN BODY OF THIS RECORD. ATTESTATION STATEMENTS By signing my name below, I, SARA, attest that this documentation has been prep ared under the direction and in the presence of Dr. AUSTEN GO DO. Electronically Signed: Christiano ABREU. 07/04/2018 4:49 PM ATTESTATIONS The scribe's documentation has been prepared under my direction and personally r eviewed by me in its entirety. I confirm that the note above accurately reflects all work, treatment, procedures, and medical decision making performed by me. Mg Go DO Portions of this documentation may have been created by an artificial transcript ion software. Effort has been done to assure accuracy of transportation broker. Any obvi ous errors or omissions should be clarified with the author of the document. documented in this encounter Miscellaneous Notes * Care Plan - Le Lockhart, Sack Sorter - 07/09/2018 1:36 PM CDT Problem: Physical [...] precautions and decrease risk for falls. Outcome: [facility] Acute Therapy Services Main: Acute: Acute Physical Therapy Treatment 07/09/2018 Room: [address] [place] [address] Name: Oliverio Tinsley Age: 67 y.o. Date of : 1950 Insurance: Payor: Mad Mimi / Plan: [facility] MCR / Product Type: Medicare Capitation / Confirmed patient's identification of name and date of : on name band, by patient report Consent to treatment given by patient and nurse with results as follows: PT Treatment Minutes Therapy Start Time: 0935 (07/09/18934) Therapy Stop Time: 1000 (07/09/18934) Total [...] achievement of go als established for Oliverio Tinsley's individualized care. Pt demonstrates increased activity tolerance this treatment. Will continue with plan of care to progress toward previously established goa ls, unless discharged from the acute care facilty.. Focus for subsequent session: balance training, equipment training, function al transfer training, gait training, home safety instruction and strengthening e xercises. Discharge Recommendation Anticipated discharge disposition: Inpatient Rehabilitation Facility as eugenee nt has the potential to make progress [...] thorough chart review was completed, including prior era notes, as applicable. Further treatment notes and therapeutic goals can be found in Care Plan Notes . Thank you for this referral, Le Lockhart, Sack Sorter X [phone] Electronically signed by Le Lockhart, Sack Sorter at 2017 1:36 PM CDT * Care [...] monitor. * Care Plan - Con Lopes, Patient Appointment Coordinator - 07/08/2018 1:04 PM CDT Problem: Self-Care Deficit Goal: Self care goal: Improve ability to perform self care activities by dischar Patient will complete stand pivot transfer to [facility] with supervision using FWW. Outcome: Progressing Goal: Self care goal: Improve ability to perform self care activities by dischar Patient will complete grooming activity while seated EOB with supervision. Outcome: Progressing Goal: Self care goal: Improve ability to perform self care activities by dischar Patient will improve gross B UE strength to 4-/5. Outcome: Progressing [facility] -Therapy Services [address] [facility] [address] Acute Occupational Therapy Treatment Session 07/08/2018 Room: [address] [place] [address] Confirmed patient's identification of name and date of : on name band, by patient report Time: 1350-5155 Reviewed prior therapy treatment notes, as applicable. [...] stating he has a sock aide and steel rule die maker at home. Exercise:BUE strengthening HEP with orange [...] Nabeel JENSEN/Palak Electronically signed by Con Lopes, Patient Appointment Coordinator at 06/10 1:04 PM CDT * Care Plan - Mel Sutton Sack Sorter - 07/08/2018 11:53 AM CDT Problem: Physical [...] and decrease risk for falls. Outcome: Progressing [facility] Acute Therapy Services Main: Acute: Acute Physical Therapy Treatment 07/08/2018 Room: [address] [place] [address] Name: Oliverio Tinsley Age: 67 y.o. Date of : 1950 Insurance: Payor: PATRICK / Plan: PATRICK [facility] MCR / Product Type: Medicare Capitation [...] achievement of go als established for Oliverio Tinsley's individualized care. Patient sitting in chair when therapist arrives. Patient agrees to therapy. P atient completes LE exercises in sitting with instructions for technique and slo w controlled lowering on LAQ. Patient completes transfers with min assist. Carlos nt educated on gait training and WB status. [...] Thank you for this referral, Mel Sutton, Sack Sorter X [phone] * Care Plan - Winnie Hendricks RN [...] loading techniques or patient moves independently. Met Orient Pathway: Adult and Obstetrics Day 1 Patient, [...] Physical Therapist - 07/07/2018 9:05 AM CDT [facility] Acute Therapy Services Main: Acute: For questions regarding this patient's status or care, please call [phone]. Acute Physical Therapy Evaluation 07/07/2018 Room: [facility]/ Name: Oliverio Tinsley Age: 67 y.o. Date of : 1950 Insurance: Payor: Mad Mimi / Plan: [employer] PPO MCR / Product Type: Medicare Capitation / Patient Class: Inpatient Confirmed patient's identification of name and date of : on name band, by patient report Consent to treatment given by patient and nurse with results as follows: Onset of illness/injury or date of surgery: 07/04/2018 PT Evaluation Time PT Evaluation Start Time: 904 (07/07/18899) PT Evaluation Stop Time: 944 (07/07/18899) PT Evaluation Total Minutes: 40 (07/07/18899) Physical Therapy Assessment Therapeutic Diagnosis: Oliverio Tinsley is a 67 y.o. male referred for [...] during initial evaluation, to be met by d channing from acute care facility. 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 : 1950 Eval Date: 07/06/2018 Diagnosis: The primary encounter diagnosis was Closed right hip fracture. A diag nosis of Elevated troponin was also pertinent to this visit. Patient location: Time: 1020 - 1052 (32 minutes) CHART [...] had troponin levels of 43 before transferri ng to [facility] for Ortho consult. Pt denies SOB or [...] bearing 50% on R LE Other pertinent findings:sanchez catheter, IV and 1 L O2 SUBJECTIVE: Subjective information provided by:chart review and the patient Patient comments: Pt reports he received therapy in [place] following his L hi p surgery. Pt [...] lives alone - Pt has caretakers through [address] They come 9 hours during the [...] continue to monitor. * Care Plan - Marika Casillas MSW - 07/04/2018 8:56 PM CDT Problem: Discharge Planning Goal: Identify discharge needs upon admission and through discharge Discharge plan is Home with Initial Discharge Planning Assessment completed. chemical worker visited with patient and three sisters in ED room, and discussed C are Management role and discharge planning. Cultural needs identified/ language barriers: none Prior to admission, patient received moderate assistance at home. Pt receives as sistance with ADL's. Prior to admission, patient resided at home alone Patient has in home superintendent marine s through [employer] out of [facility]. Has 9 hours during day and 5-6 hours dur ing night. Caretakers assist with cooking, cleaning, transfers as needed, and valero pervise bathing and dressing. Patient's regular day time superintendent marine has been on m edical leave but will be returning soon and regularly helps patient to walk with walker. Patient normally wc bound with independent transfers. Next of kin/contact verified as Hellen Veloz, sister/DPOA . They can be r eached at [phone]. PCP verified as Dr. Claus Couch. Patient's insurance verified as [employer] and [employer] Patient does have prescription coverage. Preferred Pharmacy is [facility] pharmacy DME: Wheelchair, walker, lift chair, shower chair, o2 at night serviced through [address] DME Transportation will be provided by: Pt's sisters pending clinical course Comments/Discharge Needs: Spoke with pt's sisters regarding possible SNF/SB for rehab upon dc. Patient's sister/DPOA adamantly refuses. States patient broke hi p last March and was discharged to [facility] where he did not receive adequat e care and then to [facility] for three months. Pt is in pain and unab le to communicate at the time of this conversation but sister/DPOA refuses at th is time. States they will be open to HH therapy only. [address] Homemaking services contacted regarding admission- notified Ashtyn. Care Management will continue to follow and assist as needed. Marika Casillas LMSW phone: [phone] documented in this encounter Plan of Treatment [...] 5TH Stat 07/04/2018 GEN 4:59 PM CDT [place] ELECTROCARDIOGRAM, Stat 07/04/2018 COMPLETE 4:30 PM CDT [...] GLUCOSE 172 (H) 74 - 99 mg/dL [facility] - [place] [employer] OPERATIONS MANAGER NAME Flori Teresa [facility] - [place] Specimen Whole blood sample (specimen) Performing Organization Address [facility] LABORATORY SERVICES CLIA # [id number] [place] [address] - [place] 100 [facility] LABORATORY SERVICES CLIA # [id number] [place], [place] [address] - [place] [address] * POC GLUCOSE (07/08/2018 9:01 PM CDT) POC GLUCOSE 163 (H) 74 - 99 mg/dL [facility] - [place] W[employer] OPERATIONS MANAGER NAME liu thorpe [facility] - [place] Specimen Whole blood sample (specimen) Performing Organization Address [facility] LABORATORY SERVICES CLIA # [id number] [place] [address] - [place] 100 [facility] LABORATORY SERVICES CLIA # [id number] [place], [place] [address] - [place] [address] * POC GLUCOSE (07/08/2018 11:56 AM CDT) POC GLUCOSE 164 (H) 74 - 99 mg/dL [facility] - [place] W[employer] OPERATIONS MANAGER NAME Flori Teresa [facility] - [place] Specimen Whole blood sample (specimen) Performing Organization Address [facility] LABORATORY SERVICES CLIA # [id number] [place] [address] - [place] 100 [facility] LABORATORY SERVICES CLIA # [id number] [place], [place] [address] - [place] [address] * POC GLUCOSE (07/08/2018 7:34 AM CDT) POC GLUCOSE 182 (H) 74 - 99 mg/dL [facility] - [place] W[employer] OPERATIONS MANAGER NAME Flori Teresa [facility] - [place] Specimen Whole blood sample (specimen) Performing Organization Address [facility] LABORATORY SERVICES CLIA # [id number] [place] [address] - [place] 100 [facility] LABORATORY SERVICES CLIA # [id number] DONNA Chao [address] - [place] 100 [facility] * CBC WITH DIFFERENTIAL (07/08/2018 4:07 AM CDT) WBC 8.2 4.0 - 11.0 K/uL [facility] - [place] RBC 3.16 (L) 4.70 - 6.00 M/uL [facility] - [place] HEMOGLOBIN 8.6 (L) 13.5 - 18.0 g/dL [facility] - [place] HEMATOCRIT 26.1 (L) 42.0 - 52.0 % [facility] - [place] MCV 82.6 78.0 - 100.0 fL [facility] - [place] MCH 27.2 27.0 - 34.0 pg [facility] - [place] MCHC 33.0 31.0 - 37.0 g/dL [facility] - [place] RDW 14.3 12.0 - 15.0 % [facility] - [place] RDW-STDEV 42.4 37.1 - 48.7 fL [facility] - [place] PLATELETS 391 150 - 450 K/uL [facility] - [place] MPV 8.2 (L) 9.3 - 12.4 fL [facility] - [place] NEUTROPHILS 67 31 - 76 % [facility] - [place] LYMPHOCYTES 21 (L) 24 - 44 % [facility] - [place] MONOCYTES 10 2 - 11 % [facility] [place] EOSINOPHILS 1 0 - 6 % [facility] - [place] BASOPHILS 0 0 - 2 % [facility] [place] IMMATURE 1 0 - 2 % [facility] - [place] NEUTROPHIL 5.51 1.80 - 7.70 K/uL [facility] ABSOLUTE LABORATORY SERVICES - [place] LYMPHOCYTE 1.73 1.00 - 4.80 K/uL [facility] ABSOLUTE LABORATORY SERVICES - [place] MONOCYTE 0.84 0.10 - 1.30 K/uL [facility] - [place] EOSINOPHIL 0.04 0.00 - 0.70 K/uL [facility] - [place] BASOPHILS 0.02 0.00 - 0.20 K/uL [facility] ABSOLUTE LABORATORY SERVICES - [place] IMMATURE 0.04 0.00 - 0.10 K/uL [facility] GRANULOCYTES LABORATORY ABSOLUTE SERVICES - [place] Specimen Blood Performing Organization Address [facility] LABORATORY SERVICES CLIA # [id number] [place] [address] - [place] 100 [facility] LABORATORY SERVICES CLIA # [id number] [place], [place] [address] - [place] [address] * POC GLUCOSE (07/07/2018 9:17 PM CDT) POC GLUCOSE 172 (H) 74 - 99 mg/dL [facility] - [place] W[employer]PER[employer] MANAGER NAME napoleon galvin [facility] - [place] Specimen Whole blood sample (specimen) Performing Organization Address [facility] LABORATORY SERVICES CLIA # [id number] [place] [address] - [place] 100 [facility] LABORATORY SERVICES CLIA # [id number] [place], [place] [address] - [place] 100 [facility] * POC GLUCOSE (07/07/2018 5:13 PM CDT) POC GLUCOSE 218 (H) 74 - 99 mg/dL [facility] - [place] W[employer] OPERATIONS MANAGER NAME sara harris [facility] - [place] Specimen Whole blood sample (specimen) Performing Organization Address [facility] one Replaced by [facility] LABORATORY SERVICES CLIA # [id number] [place] [address] - [place] 100 [facility] LABORATORY SERVICES CLIA # [id number] [place], [place] [address] - [place] [address] * POC GLUCOSE (07/07/2018 12:35 PM CDT) POC GLUCOSE 157 (H) 74 - 99 mg/dL [facility] - [place] W[employer] OPERATIONS MANAGER NAME sara harris [facility] - [place] Specimen Whole blood sample (specimen) Performing Organization Address [facility] LABORATORY SERVICES CLIA # [id number] [place] [address] - [place] 100 [facility] LABORATORY SERVICES CLIA # [id number] [place] Chao [address] - [place] 100 [facility] * POC GLUCOSE (07/07/2018 8:15 AM CDT) POC GLUCOSE 161 (H) 74 - 99 mg/dL [facility]ATORY SERVICES - [place] W[employer] OPERATIONS MANAGER NAME sara harris [facility] - [place] Specimen Whole blood sample (specimen) Performing Organization Address City/State/Zipcode Ph one Raza [facility] LAB[facility]ATORY SERVICES CLIA # [id number] [place] [address] - [place] 100 [facility] LABORATORY SERVICES CLIA # [id number] [place] [address] - [place] 100 [facility] * BASIC METABOLIC PANEL (07/07/2018 4:00 AM CDT) SODIUM 136 136 - 145 mmol/L [facility] LABORATORY SERVICES - [place] POTASSIUM 4.1 3.5 - 5.1 mmol/L [facility]ORATORY SERVICES - [place] CHLORIDE 98 98 - 107 mmol/L [facility] LABORATORY SERVICES - [place] CO2 26 22 - 29 mmol/L [facility] LABORATORY SERVICES - [place] CALCIUM 8.6 (L) 8.8 - 10.2 mg/dL [facility] - [place] BUN 10 8 - 23 mg/dL [facility] - [place] CREATININE 0.56 (L) 0.67 - 1.17 mg/dL [facility] - [place] GLUCOSE 162 (H) 74 - 99 mg/dL [facility] LABORATORY SERVICES - [place] GFR >60 >=60 mL/min/1.73 sq [facility] Comment: meter LABORATORY eGFR has not been [...] GFR result. GFR, >60 >=60 mL/min/1.73 sq [facility] LABORATORY SERVICES - [place] ANION GAP 12 4 - 13 mmol/L [facility] - [place] Specimen Blood Performing Organization Address City/State/Zipcode Ph one Number [facility]ORY SERVICES CLIA # [id number] [place] [address] - [place] [address] [facility] CLIA # [id number] [place] Chao [address] - [place] [address] * CBC WITH DIFFERENTIAL (07/07/2018 4:00 AM CDT) WBC 8.1 4.0 - 11.0 K/uL [facility] - [place] RBC 3.09 (L) 4.70 - 6.00 M/uL [facility] - [place] HEMOGLOBIN 8.4 (L) 13.5 - 18.0 g/dL [facility] - [place] HEMATOCRIT 25.7 (L) 42.0 - 52.0 % [facility] - [place] MCV 83.2 78.0 - 100.0 fL [facility] - [place] MCH 27.2 27.0 - 34.0 pg [facility] - [place] MCHC 32.7 31.0 - 37.0 g/dL [facility] - [place] RDW 14.2 12.0 - 15.0 % [facility] - [place] RDW-STDEV 42.6 37.1 - 48.7 fL [facility] LAB[facility]ATORY SERVICES - [place] PLATELETS 344 150 - 450 K/uL [facility] - [place] MPV 7.9 (L) 9.3 - 12.4 fL [facility] - [place] NEUTROPHILS 69 31 [...] [place] NEUTROPHIL 5.56 1.80 - 7.70 K/uL [facility] ABSOLUTE LABORATORY SERVICES - [place] LYMPHOCYTE 1.51 1.00 - 4.80 K/uL [facility] ABSOLUTE LABORATORY SERVICES - [place] MONOCYTE 0.89 0.10 - 1.30 K/uL [facility] ABSOLUTE LABORATORY SERVICES - [place] EOSINOPHIL 0.04 0.00 - 0.70 K/uL [facility] ABSOLUTE LABORATORY SERVICES - [place] BASOPHILS 0.01 0.00 - 0.20 K/uL [facility] ABSOLUTE LABORATORY SERVICES - [place] IMMATURE 0.04 0.00 - 0.10 K/uL [facility] GRANULOCYTES LABORATORY ABSOLUTE SERVICES - [place] Specimen Blood Performing Organization Address [facility] one Replaced by [facility] LABORATORY SERVICES CLIA # [id number] [place] [address] - [place] 100 [facility] LABORATORY SERVICES CLIA # [id number] [place] [address] - [place] 100 [facility] * POC GLUCOSE (07/06/2018 10:05 PM CDT) POC GLUCOSE 120 (H) 74 - 99 mg/dL [facility]ORATORY SERVICES - [place] W[employer] OPERATIONS MANAGER NAME kristin seals [facility] - [place] Specimen Whole blood sample (specimen) Performing Organization Address [facility] one Replaced by [facility] LABORATORY SERVICES CLIA # [id number] [place] [address] - [place] 100 [facility] LABORATORY SERVICES CLIA # [id number] [place] [address] - [place] 100 [facility] * POC GLUCOSE (07/06/2018 5:49 PM CDT) POC GLUCOSE 152 (H) 74 - 99 mg/dL [facility]ATORY SERVICES - [place] W[employer]ARM OPERATIONS MANAGER NAME terry miles [facility] [place] Specimen Whole blood sample (specimen) Performing Organization Address [facility] one Replaced by [facility] LABORATORY SERVICES CLIA # [id number] [place] [address] - [place] 100 [facility] LABORATORY SERVICES CLIA # [id number] [place] Chao [address] - [place] 100 [facility] * POC GLUCOSE (07/06/2018 1:12 PM CDT) POC GLUCOSE 128 (H) 74 - 99 mg/dL [facility] [place] W[employer]ARM OPERATIONS MANAGER NAME terry miles [facility] [place] Specimen Whole blood sample (specimen) Performing Organization Address [facility] LABORATORY SERVICES CLIA # [id number] [place] [address] - [place] 100 [facility] LABORATORY SERVICES CLIA # [id number] [place] [address] - [place] 100 [facility] * POC GLUCOSE (07/06/2018 8:05 AM CDT) POC GLUCOSE 141 (H) 74 - 99 mg/dL [facility] - [place] W[employer]ARM OPERATIONS MANAGER NAME terry miles [facility] - [place] Specimen Whole blood sample (specimen) Performing Organization Address [facility] LABORATORY SERVICES CLIA # [id number] [place] [address] - [place] 100 [facility] LABORATORY SERVICES CLIA # [id number] DONNA Chao [address] - [place] 100 [facility] * BASIC METABOLIC PANEL (07/06/2018 2:17 AM CDT) SODIUM 134 (L) 136 - 145 mmol/L [facility]ORY [facility] - [place] POTASSIUM 4.1 3.5 - 5.1 mmol/L [facility]ORY SERVICES - [place] CHLORIDE 98 98 - 107 mmol/L [facility] - [place] CO2 23 22 - 29 mmol/L [facility] - [place] CALCIUM 8.6 (L) 8.8 - 10.2 mg/dL [facility]ORY SERVICES - [place] BUN 7 (L) 8 - 23 mg/dL [facility]ORY [facility] - [place] CREATININE 0.54 (L) 0.67 - 1.17 mg/dL [facility]ATORY SERVICES - [place] GLUCOSE 121 (H) 74 - 99 mg/dL [facility]ATORY SERVICES - [place] GFR >60 >=60 [...] result. GFR, >60 >=60 mL/min/1.73 sq [facility] - [place] ANION GAP 13 4 - 13 mmol/L [facility] Specimen Blood Performing Organization Address City/State/[facility] Cent[facility]ode Ph one Number [facility] LABORATORY SERVICES CLIA # [id number] [place] [address] - [facility] 100 [facility] LABORATORY SERVICES CLIA # [id number] DONNA Chao [address] - [facility] 100 [facility] * CBC WITH DIFFERENTIAL (07/06/2018 2:17 AM CDT) [facility] WBC 8.6 4.0 - 11.0 K/uL [facility] LABORATORY SERVICES - [place] RBC 3.38 (L) 4.70 - 6.00 M/uL [facility] LABORATORY SERVICES - [place] HEMOGLOBIN 9.2 (L) 13.5 - 18.0 g/dL [facility] HEMATOCRIT 28.0 (L) 42.0 - 52.0 % [facility] LAB[facility]ATORY SERVICES - [place] MCV 82.8 78.0 - 100.0 fL [facility] LABORATORY SERVICES - [place] MCH 27.2 27.0 - 34.0 pg [facility] LAB[facility]ATORY SERVICES - [place] MCHC 32.9 31.0 - 37.0 g/dL [facility] LABORATORY SERVICES - [place] RDW 14.3 12.0 - 15.0 % [facility] LAB[facility]ATORY SERVICES - [place] RDW-STDEV 43.2 37.1 - 48.7 fL [facility] LABORATORY SERVICES - [place] PLATELETS 382 150 - 450 K/uL [facility] LABORATORY SERVICES - [place] MPV 7.8 (L) 9.3 - 12.4 fL [facility] - [place] NEUTROPHILS 76 31 - 76 % [facility] - [place] LYMPHOCYTES 14 (L) 24 - 44 % [facility] - [place] MONOCYTES 9 2 - 11 % [facility] - [place] EOSINOPHILS 0 0 - 6 % [facility] - [place] BASOPHILS 0 0 - 2 % [facility] - [place] IMMATURE 1 0 - 2 % [facility] - [place] NEUTROPHIL 6.56 1.80 - 7.70 K/uL [facility] - [place] LYMPHOCYTE 1.23 1.00 - 4.80 K/uL [facility] - [place] MONOCYTE 0.74 0.10 - 1.30 K/uL [facility] ABSOLUTE LABORATORY SERVICES - [place] EOSINOPHIL 0.02 0.00 - 0.70 K/uL [facility] - [place] BASOPHILS 0.01 0.00 - 0.20 K/uL [facility] - [place] IMMATURE 0.05 0.00 - 0.10 K/uL [facility] LAB[facility] ABSOLUTE SERVICES - [place] Specimen Blood Performing Organization Address [facility] Ph one Replaced by [facility] LABORATORY SERVICES CLIA # [id number] [place] [address] - [place] 100 [facility] LABORATORY SERVICES CLIA # [id number] [place] [address] - [place] 100 [facility] * POC GLUCOSE (07/05/2018 8:57 PM CDT) POC GLUCOSE 132 (H) 74 - 99 mg/dL [facility] LABORATORY SERVICES - [place] W[employer]PERATIONS MANAGER NAME katlin barrientos [facility] LABORATORY SERVICES - [place] Specimen Whole blood sample (specimen) Performing Organization Address [facility] Ph one Number [facility] LABORATORY SERVICES CLIA # [id number] [place] [address] - [place] 100 [facility] LABORATORY SERVICES CLIA # [id number] [place], [place] [address] - [place] 100 [facility] * POC GLUCOSE (07/05/2018 5:59 PM CDT) POC GLUCOSE 135 (H) 74 - 99 mg/dL [facility] LABORATORY SERVICES - [place] W[employer] OPERATIONS MANAGER NAME sara harris [facility] LAB[facility]ATORY SERVICES - [place] Specimen Whole blood sample (specimen) Performing Organization Address [facility] Ph one Number [facility] LABORATORY SERVICES CLIA # [id number] [place] [address] - [place] 100 [facility] LABORATORY SERVICES CLIA # [id number] [place] [address] - [place] 100 [facility] * XR HIP 2 OR 3 VIEWS [...] subcapital femoral neck fracture. Performing Organization Address [facility] Centercode Ph one Number INTERFACE SYSTEM INTERFACE SYSTEM Refer to clinic/hospital department * URINE CULTURE (07/05/2018 1:28 PM CDT) CULTURE Polymicrobial growth [facility] consistent with normal LABORATORY urethral radha and/or SERVICES - colonizing bacteria [place] Specimen Urine - Urine, indwelling (Sanchez) catheter Performing Organization Address City/[facility]/Zipcode Ph one Number [facility] LABORATORY SERVICES CLIA # [id number] [place] [address] - [place] 100 [facility] LABORATORY SERVICES CLIA # [id number] [place] [address] - [place] 100 [facility] * URINALYSIS WITH REFLEX CULTURE (07/05/2018 1:28 PM CDT) COLOR UA Dark Yellow Pale to dark yellow [facility] - [place] CLARITY UA Turbid (A) Clear [facility] [place] SPECIFIC 1.009 1.003 - 1.035 [facility] - [place] PH UA 5.0 5.0 - 8.0 [facility] LABORATORY SERVICES - [place] LEUKOCYTE 3+ (A) Negative [facility] - [place] NITRITE UA Negative Negative [facility] [place] PROTEIN UA Negative Negative [facility] [place] GLUCOSE UA Negative Negative [facility] LAB[facility]ATORY SERVICES - [place] UA Negative Negative [facility] [place] UROBILINOGEN UA 2.0 (A) <2.0 mg/dL [facility] [place] BILIRUBIN UA Negative Negative [facility] [place] BLOOD UA 1+ (A) Negative [facility] [place] WBC UA >100 (A) 0 - 2 /hpf [facility] [place] RBC UA 11-25 (A) 0 - 2 /hpf [facility] [place] BACTERIA UA 2+ (A) Negative /hpf [facility] [place] EPITHELIAL 0-5 0 - 5 /hpf [facility] CELLS, URINE LABORATORY SERVICES - [place] HYALINE CAST 6-10 (A) None Seen, 0-2 /lpf [facility] [place] AMORPHOUS Present (A)Comment: Present Absent [facility] [place] WBC CLUMPS Present (A)Comment: Many Absent [facility] [place] Specimen Urine - Urine, indwelling (Sanchez) catheter Narrative Performed At Based on results, a urine culture has been reflexed. [facility] [place] Performing Organization Address City/State/Zipcode Ph one Number [facility] CLIA # [id number] DONNA Chao [phone] - [place] 100 [facility] LABORATORY SERVICES CLIA # [id number] DONNA Chao [phone] - [place] [facility] * POC GLUCOSE (07/05/2018 12:51 PM CDT) POC GLUCOSE 174 (H) 74 - 99 mg/dL [facility] - [place] [employer] MANAGER NAME flynn pimentel [facility] - [place] Specimen Whole blood sample (specimen) Performing Organization Address City/State/Zipcode Ph one Number [facility] CLIA # [id number] DON[place] Chao [phone] - [place] 100 [facility] LABORATORY SERVICES CLIA # [id number] DONNA Chao [phone] - [place] 100 [facility] * XR FLUORO GREATER THAN 1 HOUR [...] neck on one view. Procedure Note Interface, [facility] Incoming Radiology Results - 07/05/2018 3:20 PM [...] subcapital femoral neck fracture. Performing Organization Address City/State/Zipcode Ph one Number [...] healed left femoral neck fracture. Procedure Note Interface, [facility] Incoming Radiology Results - 07/05/2018 9:47 AM [...] delineated on today's imaging Performing Organization Address City/State/[facility] Ph one Number INTERFACE SYSTEM INTERFACE SYSTEM Refer to clinic/hospital department * POC GLUCOSE (07/05/2018 7:27 AM CDT) POC GLUCOSE 148 (H) 74 - 99 mg/dL [facility]AT[facility] - [place] [employer] MANAGER NAME sara harris [facility]ATORY SERVICES - [place] Specimen Whole blood sample (specimen) Performing Organization Address City/State/[facility] Ph one Number [facility] CLIA # [id number] [place] Chao [address] - [place] [address] [facility] [address] [facility] CLIA # [id number] DONNA Chao [phone] - [place] 100 [facility] * BASIC METABOLIC PANEL (07/05/2018 3:45 AM CDT) SODIUM 136 136 - 145 mmol/L [facility] - [place] POTASSIUM 4.2 3.5 - 5.1 mmol/L [facility] - [place] CHLORIDE 101 98 - 107 mmol/L [facility] - [place] CO2 23 22 - 29 mmol/L [facility] [place] CALCIUM 8.7 (L) 8.8 - 10.2 mg/dL [facility] [place] BUN 10 8 - 23 mg/dL [facility] [place] CREATININE 0.66 (L) 0.67 - 1.17 mg/dL [facility] [place] GLUCOSE 142 (H) 74 - 99 mg/dL [facility] [place] GFR >60 >=60 mL/min/1.73 sq [facility] Comment: meter LABORATORY eGFR has not been [...] GFR result. GFR, >60 >=60 mL/min/1.73 sq [facility] GABONESE meter LABORATORY SERVICES - [place] ANION GAP 12 4 - 13 mmol/L [facility] Spec[facility] Blood Performing Organization Address City/State/[facility] Ph one Number [facility] CLIA # [id number] DON[place] Chao [phone] - [place] 100 [facility] LABORATORY SERVICES CLIA # [id number] DONNA Chao 6 [phone] - [facility] 100 [facility] * CBC WITH DIFFERENTIAL (07/05/2018 3:45 AM CDT) WBC 7.8 4.0 - 11.0 K/uL [facility] - [place] RBC 3.89 (L) 4.70 - 6.00 M/uL [facility] - [place] HEMOGLOBIN 10.6 (L) 13.5 - 18.0 g/dL [facility] - [place] HEMATOCRIT 32.8 (L) 42.0 - 52.0 % [facility] [place] MCV 84.3 78.0 - 100.0 fL [facility] [place] MCH 27.2 27.0 - 34.0 pg [facility] - [place] MCHC 32.3 31.0 - 37.0 g/dL [facility] - [place] RDW 14.4 12.0 - 15.0 % [facility] - [place] RDW-STDEV 43.9 37.1 - 48.7 [facility] - [place] PLATELETS 446 150 - 450 K/uL [facility] - [place] MPV 7.8 (L) 9.3 - 12.4 [facility] - [place] NEUTROPHILS 68 31 - 76 % [facility] - [place] LYMPHOCYTES 19 (L) 24 - 44 % [facility] - [place] MONOCYTES 12 (H) 2 - 11 % [facility] - [place] EOSINOPHILS 0 0 - 6 % [facility] - [place] BASOPHILS 0 0 - 2 % [facility] - [place] IMMATURE 1 0 - 2 % [facility] GRANULOCYTES LABORATORY SERVICES - [place] NEUTROPHIL 5.34 1.80 - 7.70 K/uL [facility] ABSOLUTE LABORATORY SERVICES - [place] LYMPHOCYTE 1.45 1.00 - 4.80 K/uL [facility] ABSOLUTE LABORATORY SERVICES - [place] MONOCYTE 0.94 0.10 - 1.30 K/uL [facility] ABSOLUTE LABORATORY SERVICES - [place] EOSINOPHIL 0.03 0.00 - 0.70 K/uL [facility] ABSOLUTE LABORATORY SERVICES - [place] BASOPHILS 0.02 0.00 - 0.20 K/uL [facility] ABSOLUTE LABORATORY SERVICES - [place] IMMATURE 0.04 0.00 - 0.10 K/uL [facility] GRANULOCYTES LABORATORY ABSOLUTE SERVICES - [place] Specimen Blood Performing Organization Address City/State/Zipcode Ph one Number [facility] SERVICES CLIA # [id number] DON[place] Chao [phone] - [place] 100 [facility] LABORATORY SERVICES CLIA # [id number] DONNA Chao [phone] - [place] 100 [facility] * POC GLUCOSE (07/04/2018 10:57 PM CDT) POC GLUCOSE 136 (H) 74 - 99 mg/dL [facility] - [place] W[employer] MANAGER NAME shola batista [facility] - [place] Specimen Whole blood sample (specimen) Performing Organization Address [facility] LABORATORY SERVICES CLIA # [id number] [place] [address] - [place] 100 [facility] LABORATORY SERVICES CLIA # [id number] [place], [place] [address] - [place] 100 [facility] * TROPONIN 6 HR, 5TH GEN (07/04/2018 10:57 PM CDT) TROPONIN T, 6 40 (H) <=15 ng/L [facility] HR 5TH GEN [facility] - [place] DELTA 6HR 5 <12 [facility] TROPONIN T LABORATORY SERVICES - [place] Specimen Blood Narrative Performed At Troponin elevated. [facility] LABORATORY [place] indeterminate. SERVICES - [place] Performing Organization Address [facility] LABORATORY SERVICES CLIA # [id number] [place] [address] - [place] 100 [facility] LABORATORY SERVICES CLIA # [id number] [place], [place] [address] - [place] 100 [facility] * POC GLUCOSE (07/04/2018 9:44 PM CDT) POC GLUCOSE 162 (H) 74 - 99 mg/dL [facility] SERVICES - [place] W[employer]PER[employer] MANAGER NAME katlin barrientos [facility] - [place] Specimen Whole blood sample (specimen) Performing Organization Address [facility] LABORATORY SERVICES CLIA # [id number] [place] [address] - [place] 100 [facility] LABORATORY SERVICES CLIA # [id number] [place], [place] [address] - [place] 100 [facility] * TROPONIN 2 HR, 5TH GEN (07/04/2018 9:25 PM CDT) TROPONIN T, 2 37 (H) <=15 ng/L [facility] HR 5TH GEN [facility] - [place] DELTA 2HR 2 <4 [facility] TR[facility] [place] Specimen Blood Narrative Performed At Troponin elevated. [facility] LABORATORY [place] not changing. [place] - [place] Performing Organization Address [facility]/State/Zipcode Ph one Number [facility] LAB[facility]ORY SERVICES CLIA # [id number] DON[place] Chao [address] - [place] 100 [facility] LABORATORY SERVICES CLIA # [id number] [place] [address] - [place] 100 [facility] * BASIC METABOLIC PANEL (07/04/2018 5:48 PM CDT) [facility] SODIUM 132 (L) 136 - 145 mmol/L [facility] [place] POTASSIUM 4.3 3.5 - 5.1 mmol/L [facility] [place] CHLORIDE 97 (L) 98 - 107 mmol/L [facility] [place] CO2 22 22 - 29 mmol/L [facility] [place] CALCIUM 8.3 (L) 8.8 - 10.2 mg/dL [facility] [place] BUN 13 8 - 23 mg/dL [facility] [place] CREATININE 0.63 (L) 0.67 - 1.17 mg/dL [facility] [place] GLUCOSE 133 (H) 74 - 99 mg/dL [facility] LABORATORY [...] result. GFR, >60 >=60 mL/min/1.73 sq [facility] GABONESE meter LABORATORY SERVICES - [place] ANION GAP 13 4 - 13 mmol/L [facility] - [place] Specimen Blood Performing Organization Address City/State/[facility] Ph one Number [facility]ORY SERVICES CLIA # [id number] DON[place] Chao [phone] - [place] 100 [facility] LABORATORY SERVICES CLIA # [id number] DONNA Chao [address] - [place] [address] * CBC WITH DIFFERENTIAL (07/04/2018 5:48 PM CDT) [facility] WBC 10.8 4.0 - 11.0 K/uL [facility] [place] RBC 3.42 (L) 4.70 - 6.00 M/uL [facility] [place] HEMOGLOBIN 9.3 (L) 13.5 - 18.0 g/dL [facility] [place] HEMATOCRIT 28.2 (L) [...] [place] RDW-STDEV 42.1 37.1 - 48.7 fL [facility] - [place] PLATELETS 386 150 [...] [facility] GRANULOCYTES [facility] - [place] NEUTROPHIL 7.88 (H) 1.80 - 7.70 K/uL [facility] ABSOLUTE [facility] - [place] LYMPHOCYTE 1.71 1.00 - 4.80 K/uL [facility] ABSOLUTE [facility] - [place] MONOCYTE 1.13 0.10 - 1.30 K/uL [facility] ABSOLUTE [facility] - [place] EOSINOPHIL 0.03 0.00 - 0.70 K/uL [facility] ABSOLUTE [facility] - [place] BASOPHILS 0.01 0.00 - 0.20 K/uL [facility] ABSOLUTE [facility] - [place] IMMATURE 0.07 0.00 - 0.10 K/uL [facility] GRANULOCYTES LABORATORY ABSOLUTE SERVICES - [place] Specimen Blood Performing Organization Address City/State/Zipcode Ph one Number [facility] LAB[facility]ATORY SERVICES CLIA # [id number] [place] [address] - [place] 100 [facility] LABORATORY SERVICES CLIA # [id number] [place], [place] [address] - [facility] 100 [facility] * TROPONIN BASELINE, 5TH GEN (07/04/2018 4:59 PM CDT) TROPONIN T, 35 (H) <=15 ng/L [facility] BASELINE 5TH LABORATORY GEN SERVICES - [place] Specimen Blood Narrative Performed At Troponin elevated. [facility] - [place] Performing Organization Address City/[facility] Ph one Number [facility] LAB[facility]ATORY SERVICES CLIA # [id number] [place] [address] - [place] 100 [facility] LABORATORY SERVICES CLIA # [id number] [place], [place] [address] - [place] 100 [facility] * EKG 12-LEAD (07/04/2018 4:30 PM CDT) Specimen Narrative Performed At Stationary ECG Study INTERFACE SYSTEM [address] [address] Test Date: 07/04/2018 4:26 PM Pat Name: OLIVERIO TINSLEY Department: 30 Room: TRAUMA5 T5 Gender: Male Cotton 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: RIVER : 1950 Requested By: Order Number: [id number] Reading MD: Noel Rob Severity: Abnormal ECG Measurements Intervals Reading Rate: 83 P: 38 NH: 222 QRS: 4 QRSD: 80 T: 88 QT: 376 QTc: 441 Interpretive Statements S inus rhythm with 1st degree AV block Low voltage QRS Nonspecific T wave abnormality Abnormal ECG Electronically Signed On 07-05-2018 9:00 :51 CDT by Noel Rob Procedure Note Interface, [facility] Incoming Radiology Results - 07/05/2018 9:00 AM CDT Stationary ECG Study [address] [address] Test Date: 07/04/2018 4:26 PM Pat Name: OLIVERIO [place] Department: 30 Room: TRAUMA5 T5 Gender: Male Cotton Broker: RIVER : 1950 Requested By: Order Number: [id number] Reading MD: Noel Rob Severity: Abnormal ECG Measurements Intervals Reading Rate: 83 P: 38 NH: 222 QRS: 4 QRSD: 80 T: 88 QT: 376 QTc: 441 Interpretive Statements Sinus rhythm with 1st degree AV block Low voltage QRS Nonspecific T wave abnormality Abnormal ECG Electronically Signed On 07-05-2018 9:00:51 CDT by Noel Rob Performing Organization Address City/State/Zipcode Ph one Number INTERFACE SYSTEM INTERFACE SYSTEM Refer to clinic/hospital department documented in this encounter Visit Diagnoses Diagnosis Femur fracture, right Closed fracture of unspecified part of femur documented in this encounter Administered Medications Action Date Dose Rate Site Medication Order MAR Action 07/05/2018 11:40 AM CDT 3 Puffs albuterol sulfate 90 mcg/Actuation Given inhaler 2 Puff 2 Puff, Inhalation, EVERY 4 HOURS PRN RESPIRATORY, Starting Wed07/04/18 at 1725, Until 07/09/18 at 1932, Shortness of Breath, Wheezing, Routine 07/09/2018 2:12 PM CDT 25 mg bethanechol (URECHOLINE) tablet 25 mg Given 25 mg, Oral, FOUR TIMES DAILY, First dose on Wed07/04/18 at 1800, Until Discontinued, Routine 25 mg Given 07/09/2018 9:49 AM CDT 25 mg Given 07/08/2018 8:41 PM CDT 07/09/2018 9:50 AM CDT 75 [...] 145 mg, Oral, DAILY, First dose on Wed07/05/18 at 0900, Until Discontinued, Routine 145 mg Given 07/08/2018 9:11 AM CDT 145 mg Given 07/07/2018 10:05 AM CDT 07/09/2018 9:50 AM CDT 40 mg FLUoxetine [...] Wed07/04/18 at 2100, Until Discontinued , Routine 07/09/2018 9:49 AM CDT 1 mg LORazepam [...] 12.5 mg Given 07/07/2018 10:10 AM CDT 07/08/2018 4:26 PM CDT 4 [...] Until 07/09/18 a t 1932, Nausea/Emesis, Routine 07/09/2018 2:16 PM CDT 1 Tablet oxyCODONE-acetaminophen (PERCOCET) Given 10-325 mg per tablet 1 Tablet 1 Tablet, Oral, EVERY 6 HOURS PRN, Starting 07/09/18 at 0742, Until 07/09/18 at 1932, Pain (See admin instructions), Routine 1 Tablet Given 07/09/2018 9:49 AM CDT 07/09/2018 5:44 AM CDT 40 [...] 07/09/18 a t 1932, Nausea/Emesis, Routine, PACU 07/09/2018 2:14 PM CDT 5 mg ramipril [...] 40 mg Given 07/06/2018 8:45 PM CDT 07/08/2018 4:27 PM CDT 0.4 mg tamsulosin [...]
--- OUTSIDE RECORDS SUMMARY | 2020-03-24 13:39 | XMS REPORT | Encounter Summary ---
Author Author [facility] [place], [place], [facility] Organization [facility] [place], [place], [place], [facility] Address Unknown Phone Unavailable Care Team Providers Care Communications Consultant Name Role Phone Claus Couch MD PCP Reason for Referral * Outpatient Services (Routine) Referred By Contact Referred To Contact Status Reason Specialty Diagnoses / Procedures Walter Oconnor MD [address] [place] [address] 320/[address] [place] [phone] 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 P rocedures ECHO COMPLETE Reason for Visit * Reason Comments Follow Up Encounter Details Care Team Description Date Type Department Walter Oconnor MD [address] [place] [address] 320[address] [place] Ch[place] [phone] Essential hypertension (Primary Dx); Hyperlipidemia with target LDL less than 70; Other chest pain; Coronary artery disease involving chipewwa coronary artery of [place] heart with angina pectoris; Tobacco dependence 06/20/2018 Office Visit [address] [place] [address] Social History Date Tobacco Use Types Packs/Day Years Used Never Smoker Smokeless Tobacco: Never Used Drinks/Week oz/Week Comments Alcohol Use No Sex Assigned at Date Recorded Not on file Industry Job Start Date Occupation Not on file Not on file Not on file Travel End Travel History Travel Start No recent travel history available. documented as of this encounter Last Filed Vital Signs Reading Time Taken Comments Vital Sign 126/62 06/20/2018 10:44 AM CDT Blood Pressure 70 06/20/2018 10:44 AM CDT Pulse - - Temperature 18 06/20/2018 10:44 AM CDT Respiratory Rate - - Oxygen Saturation - - Inhaled Oxygen Concentration 63.5 kg (140 lb) 06/20/2018 10:44 AM CDT Weight 167.6 cm (5' 6") 06/20/2018 10:44 AM CDT Height 22.6 06/20/2018 10:44 AM CDT Body Mass Index documented in this encounter Progress Notes * Walter Oconnor MD - 06/20/2018 10:47 AM CDT HISTORY OF PRESENT ILLNESS Oliverio Dalton, a 67 y.o. male presents with a Chief Complaint of Follow Up Subjective HPI The medical record reflects the History of Present Illness as obtained by myself in discussion with the patient. The patient presents for follow-up of CAD/HTN/HLD. Since the last visit he has not had chest pain, shortness of breath or any other new cardiac symptoms. His medications and most recent lab have been reviewed. He had an echo and stress te st 01/23 for preop; they were ok. His only complaint is arthritis pain. The patient's past medical, social and family history have been reviewed. Current Outpatient Prescriptions on File Prior to Visit Medication Sig Dispense Refill belladonna alkaloids-opium (B&O 15A) 16.2-30 mg Suppository [...] every 6 hours as needed for Nausea/Emesis. oxyCODONE-acetaminophen (PERCOCET) 5-325 mg tablet Take 1 Tab by mouth every 6 hours as needed for Pain, Moderate. fluticasone (FLOVENT HFA) 110 mcg/actuation Inhalation Aero Take 1 Puff by i nhalation 2 times daily. 12 Gram 1 albuterol (PROAIR HFA) 90 mcg/Actuation Inhalation HFAA inhaler Take 2 Puffs by inhalation every 4 hours as needed for Shortness of Breath or Wheezing. 6.7 Gram 1 zolpidem (AMBIEN) 10 mg Oral tablet Take 10 mg by mouth nightly as needed. pioglitazone (ACTOS) 30 mg Oral tablet Take [...] facility-administered medications on file prior to visit. REVIEW OF SYSTEMS Review of Systems Constitutional: Negative for activity change, fatigue and fever. HENT: Negative for congestion and trouble swallowing. Eyes: Negative for visual disturbance. Respiratory: Negative for apnea, cough, chest tightness, shortness of breath and wheezing. Cardiovascular: Negative for chest pain, palpitations and leg swelling. Gastrointestinal: Negative for abdominal pain, blood in stool, constipation, michael rrhea, nausea and vomiting. Genitourinary: Negative for dysuria, frequency, hematuria and urgency. Musculoskeletal: Positive for arthralgias, back pain and gait problem. Negative for joint swelling. Skin: Negative for color change, pallor and rash. Neurological: Negative for dizziness, syncope, facial asymmetry, speech difficul ty, weakness, light-headedness and headaches. Hematological: Does not bruise/bleed easily. Psychiatric/Behavioral: Negative for behavioral problems, confusion and suicidal ideas. Objective PHYSICAL EXAM BP 126/62 (BP Location: Left arm, Patient Position (BP): Sitting, BP Cuff Size: Large Adult) | Pulse 70 | Resp 18 | Ht 5' 6" (1.676 m) | Wt 63.5 kg (140 lb) | BMI 22.60 kg/m Physical Exam Constitutional: He is oriented to person, place, and time. Vital signs are anish l. He appears well-developed and well-nourished. HENT: Head: Normocephalic and atraumatic. Right Ear: Hearing normal. Left Ear: Hearing normal. Nose: Nose normal. Mouth/Throat: Oropharynx is clear and moist and mucous membranes are normal. Eyes: Pupils are equal, round, and reactive to light. Neck: Normal range of motion. No hepatojugular reflux and no JVD present. Caroti d bruit is not present. No thyroid mass and no thyromegaly present. Cardiovascular: Normal rate, regular rhythm, S1 normal, S2 normal, intact distal pulses and normal pulses. PMI is not displaced. Exam reveals distant heart so unds. Exam reveals no gallop and no friction rub. Murmur heard. Systolic murmur is present with a grade of 1/6 Pulmonary/Chest: Effort normal. No respiratory distress. He has decreased breath sounds. He has no wheezes. He has no rhonchi. He has no rales. He exhibits no t enderness. Abdominal: Soft. Normal appearance and bowel sounds are normal. He exhibits no d istension. There is no tenderness. Musculoskeletal: Normal range of motion. He exhibits no edema or tenderness. Neurological: He is alert and oriented to person, place, and time. He has normal strength. No cranial nerve deficit. Skin: Skin is warm and dry. No rash noted. No erythema. Psychiatric: He has a normal mood and affect. Judgment normal. Procedures Assessment ASSESSMENT and PLAN: ICD-10-CM ICD-9-CM 1. Essential hypertension I10 401.9 ECHO COMPLETE 2. Hyperlipidemia with target LDL less than 70 E78.5 272.4 3. Other chest pain R07.89 786.59 4. 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 Tobacco dependence F17.200 305.1 Echo next visit Same meds Lab per primary 9 month return documented in this encounter Plan of Treatment Not on filedocumented as of this encounter Results * ECHO COMPLETE (03/27/2019 11:20 AM CDT) EJECTION 60 50 - 65 % [facility] FRACTION [place] CADIOLOGY Specimen Impressions Performed At : [facility] 1. Left ventricular hypertrophy with diastolic [...] Transcribed in Epic - Narrative Performed At [facility] ECHOCARDIOGRAM REPORT: CADIOLOGY DATE OF ECHO: [...] Performing Organization Address City/State/Zipcode Ph one Number [facility] SIDDHARTH MARTINEZ # [id number] [place] [address] CADIOLOGY 100 [facility] documented in this encounter Visit Diagnoses Diagnosis Essential hypertension - Primary Unspecified essential hypertension Hyperlipidemia with target LDL less modesto n 70 Other and unspecified hyperlipidemia Other chest pain Coronary artery disease involving nativ e coronary artery of chipewwa heart with angina pectoris Tobacco dependence Tobacco use disorder documented in this encounter
--- OUTSIDE RECORDS SUMMARY | 2020-03-24 13:39 | XMS REPORT | Encounter Summary ---
Author Author [facility], [place], [place], [place], [place] Organization [facility] [place], [place], [place] Address Unknown Phone Unavailable Care Team Providers Care Hydrometeorology Teacher Name Role Phone Claus Couch MD PCP Encounter Details Care Team Description Date Type Department Karen Weiner DNP 100 [facility] [address] [place] [phone] 02/14/2018 Chart Note [facility] [place] [address] [place] [address] Social History Date Tobacco Use Types Packs/Day Years Used Never Assessed Sex Assigned at Date Recorded Not on file Industry Job Start Date Occupation Not on file Not on file Not on file Travel End Travel History Travel Start No recent travel history available. documented as of this encounter Progress Notes * Karen Weiner DNP - 02/14/2018 8:46 AM CDT You Walter Oconnor MD 3 days ago Is it OK for him to be off the Plavix for 5 days prior to surgery? BC (Routing comment) Walter Oconnor MD You 46 minutes ago (7:59 AM) yes (Routing comment) It is OK for patient to hold Plavix 5 days prior to surgery with Dr. Alberts documented in this encounter Plan of Treatment Not on filedocumented as of this encounter Visit Diagnoses Not on filedocumented in this encounter
--- OUTSIDE RECORDS SUMMARY | 2020-03-24 13:40 | XMS REPORT | Encounter Summary ---
Author Author [facility] [place], [place], [facility] Organization [facility], [place], [place], [facility] Address Unknown Phone Unavailable Care Team Providers Care Aoc Airspace Control Officer Name Role Phone Claus Couch MD PCP Reason for Visit * Reason Comments Hospital F/U Declined Encounter Details Care Team Description Date Type Department Zachary Verduzco, 100 [facility] [address] [place] [phone] Hospital F/U Declined 09/07/2017 Telephone [facility] Clinic Team [facility] Orthopedics 100 [facility] [address] [place] [phone] Social History Date Tobacco Use Types Packs/Day Years Used Never Assessed Sex Assigned at Date Recorded Not on file Industry Job Start Date Occupation Not on file Not on file Not on file Travel End Travel History Travel Start No recent travel history available. documented as of this encounter Miscellaneous Notes * Telephone Encounter - Nadia Lin - 09/07/2017 11:09 AM CDT I called and spoke with the pt's family about scheduling a 2 week hospital follo w up. She declined stating the the pt sees [facility] and this is an old fx that the pt has been released from. She will have the pt follow up at [facility] if she deems necessary. I told her I understood and to call us if she needs anything from [facility]. documented in this encounter Plan of Treatment Not on filedocumented as of this encounter Visit Diagnoses Not on filedocumented in this encounter
--- OUTSIDE RECORDS SUMMARY | 2020-03-24 13:40 | XMS REPORT | Encounter Summary ---
Author Author [facility] [place], [place], [place], [facility] Organization [facility] [place], [place], [facility] Address Unknown Phone Unavailable Care Team Providers Care Stage Set Up Worker Name Role Phone Claus Couch MD PCP Encounter Details Care Team Description Date Type Department Provider, Abstract Spg 02/10/2018 Abstract [facility] Heart Care [place] 100 [facility] [address] [place] [phone] Social History Date Tobacco Use Types Packs/Day [...]
--- OUTSIDE RECORDS SUMMARY | 2020-03-24 13:40 | XMS REPORT | Encounter Summary ---
Author Author [facility] [place], [place], [place] Organization [facility], [place], [place], [place] Address Unknown Phone Unavailable Care Team Providers Care Assistant Education Director Name Role Phone Claus Couch MD PCP Reason for Visit * Reason Comments Follow Up Encounter Details Care Team Description Date Type Department Karen Weiner DNP 100 [facility] [address] [place] [phone] Follow Up 01/24/2018 Telephone [facility] [place] 100 [facility] [address] [place] [phone] [...] Telephone Encounter - Lora Good RN - 01/24/2018 2:11 PM CDT Karen Weiner DNP 45 minutes ago (1:24 PM) Received a message from Ana at Dr. Fry's office. He is the orthopedic s urgeon that we'll be doing the surgery on the patient's right elbow. Phone marek rivera [phone]. The patient most likely will be given general anesthesia he just may not be intubated. Please let patient know based on this that he will need a nuclear pharmacological stress test and I have ordered it on the fourth [facility] s miller. I called both Crystal at Dr Fry's office and pt to inform them that a nucle ar stress test will need done in order for pt to get cardiac clearance. They bot h verbalized understanding.Lora Good, RN documented in this encounter Plan of Treatment Not on filedocumented as of this encounter Visit Diagnoses Not on filedocumented in this encounter
--- OUTSIDE RECORDS SUMMARY | 2020-03-24 13:40 | XMS REPORT | Encounter Summary ---
Author Author [facility], [place], [place], [place] Organization [facility] [place], [place], [place] Address Unknown Phone Unavailable Care Team Providers Care Etl Software Engineer Name Role Phone Claus Couch MD PCP Reason for Visit * Reason Comments Follow Up Encounter Details Care Team Description Date Type Department Karen Weiner DNP 100 [facility] [address] [place] [phone] Follow Up 01/26/2018 Telephone [facility] [place] 100 [facility] [address] [place] [phone] [...] Telephone Encounter - Lora Good RN - 01/26/2018 9:56 AM CDT ----- Message from Karen Weiner DNP sent at 01/26/2018 4:46 AM CDT ----- Heart Function is normal/preserved (Normal EF). There are no significant valvul ar abnormalities that are inhibiting proper function of the heart, or hindering proper flow of blood in or out of the heart. Based on this recent ECHO patient should remain on the same medications and continue to keep all previously schedu led follow ups. Recommend ECHO be rechecked in one year. Please send copy to Dr. Couch I will ask my nurse to notify patient. I have left times of availability on her desk I will ask my nurse Lora to notify patient of these findings and recommendations. I will send letter with Echo results. I routed these results to PCP.Lora Good RN documented in this encounter Plan of Treatment Not on filedocumented as of this encounter Visit Diagnoses Not on filedocumented in this encounter
--- OUTSIDE RECORDS SUMMARY | 2020-03-24 13:40 | XMS REPORT | Encounter Summary ---
Author Author [facility], [place], [place], [place], [place] Organization [facility] [place], [place], [place], [place] Address Unknown Phone Unavailable Care Team Providers Care Traveling Missionary Name Role Phone Claus Couch MD PCP Encounter Details Care Team Description Date Type Department Karen Weiner DNP 100 [facility] [address] [place] [phone] 01/24/2018 Chart Note [facility] [place] 100 [facility] [address] [place] [address] Social History Date Tobacco Use Types Packs/Day Years Used Never Assessed Sex Assigned at Date Recorded Not on file Industry Job Start Date Occupation Not on file Not on file Not on file Travel End Travel History Travel Start No recent travel history available. documented as of this encounter Progress Notes * Karen Weiner DNP - 01/24/2018 1:24 PM CDT Received a message from Ana at Dr. Fry's office. He is the orthopedic s urgeon that we'll be doing the surgery on the patient's right elbow. [phone]. The patient most likely will be given general anesthesia he just may not be intubated. Please let patient know based on this that he will need a nuclear pharmacological stress test and I have ordered it on the [facility] miller. documented in this encounter Plan of Treatment Not on filedocumented as of this encounter Visit Diagnoses Not on filedocumented in this encounter
--- OUTSIDE RECORDS SUMMARY | 2020-03-24 13:40 | XMS REPORT | Encounter Summary ---
Author Author [facility] [place], [place], [employer] [place] Organization [facility], [place], [place], [employer] [place] Address Unknown Phone Unavailable Care Team Providers Care Customer Relations Advisor Name Role Phone Claus Couch MD PCP Reason for Visit * Reason Comments Follow Up Encounter Details Care Team Description Date Type Department Karen Weiner DNP 100 [facility] [address] [place] [phone] Follow Up 02/10/[address] [facility] [place] [address] [facility] [address] [place] [phone] [...] Telephone Encounter - Lora Good RN - 02/10/2018 9:43 AM CDT Karen Weiner DNP You 14 hours ago (6:58 PM) Please check with Dr. Alberts's office ([email or web address]) and make sure he got the la st OV note I sent that has the clearance at the bottom. Thank you, BC (Routing comment) Walter Oconnor MD Cupp, Brenda M, DNP 23 hours ago (10:18 AM) Low risk stress test but patient has known multi vessel CAD by remote cath and h as some LV dysfunction. He low-moderate risk for CV complications I called Dr Alberts's office and spoke to Ana, , and she stated she needs clarification. She stated the clearance note does not mention if pt ca n be off Plavix or 5 days before surgery.Lora Good RN documented in this encounter Plan of Treatment Not on filedocumented as of this encounter Visit Diagnoses Not on filedocumented in this encounter
--- OUTSIDE RECORDS SUMMARY | 2020-03-24 13:40 | XMS REPORT | Encounter Summary ---
Author Author [facility], [place], [place], [place], [facility] Organization [facility], [place], [place], [facility] Address Unknown Phone Unavailable Care Team Providers Care Career Center Director Name Role Phone Claus Couch MD PCP Reason for Referral * Outpatient Services (Routine) Referred By Contact Referred To Contact Status Reason Specialty Diagnoses / Procedures Karen Weiner DNP [address] [place] [address] [address] [place] [phone] Closed Diagnoses Coronary artery disease involving [place] coronary artery of [place] heart without angina pectoris Pre-op examination Peripheral arterial disease P rocedures ECHO COMPLETE Reason for Visit * Outpatient Services (Routine) Referred By Contact Referred To Contact Status Reason Specialty Diagnoses / Procedures Karen Weiner DNP [address] [place] [address] [address] [place] [phone] Closed Diagnoses Coronary artery disease involving [place] coronary artery of [place] heart without angina pectoris Pre-op examination Peripheral arterial disease P rocedures ECHO COMPLETE Encounter Details Care Team Description Date Type Department Karen Weiner DNP [address] [place] [address] [address] [place] [phone] 01/21/2018 [facility] Cardiology Sc dicwy Encounter Building [address] [place] [phone] Social History Date Tobacco [...] as needed. documented as of this encounter Progress Notes * Karen Weiner DNP - 01/26/2018 4:46 AM CDT Heart Function is normal/preserved (Normal EF). There [...] notify patient of these findings and recommendations. documented in this encounter Plan of Treatment Not on filedocumented as of this encounter Procedures Comments Procedure Name Priority Date/Time Associated Diag nosis ECHO COMPLETE Routine 01/21/2018 Coronary artery disease 1:11 PM CDT involving [place] coronary artery of [place] heart without angina pectoris Pre-op examination Peripheral arterial disease documented in this encounter Results * ECHO COMPLETE (01/21/2018 1:11 PM CDT) EJECTION 60 50 - [address] [facility] CADIOLOGY Specimen [facility]OCARDIO[facility]: CADIOLOGY DATE OF PROCEDURE: 01/21/2018. INDICATIONS FOR THE PROCEDURE: [place] ry artery disease, preoperative examination, peripheral vascular diseas e. TECHNICAL ASPECTS: Adequate. FINDINGS: M-MODE: The following are in centimeter s: Left ventricular end diastolic of 5.4, left ventricular end systolic o f 3.6, interventricular septal width of 1.1, left ventricular posterio r width of 1.2, aortic root is 3.5, left atrium of 4.9. 2D AND DOPPLER: Left ventricle: The left ventricle is o f normal size, normal appearance. Ejection fraction is preserved at 60 to 65% with no evidence of regional wall motion abnormality, grade I diasto lic dysfunction, and elevated filling pressures by E/e' of 26.08. Mitral valve: The mitral valve with no evidence of prolapse, no evidence of stenosis. Mild mitral valve regurgit ation. Left atrium: Left atrium is mildly dila roma. Aortic valve: Aortic valve appears to b e bicuspid in nature with evidence of mild aortic sclerosis, no evidence o f stenosis, and only trivial aortic insufficiency. Aortic root: The aortic root is mildly dilatated with no evidence of coarctation. Right ventricle: The right ventricle is of normal size, normal appearance, normal function. Tricuspid valve: The tricuspid valve is of normal appearance with evidence of mild tricuspid regurgitation, too sm all for estimations of pulmonary pressures. Right atrium: The right atrium is of no rmal size. Pericardium: No evidence of pericardial effusion. Inferior vena cava: Inferior vena cava appears of normal size. SUMMARY: Normal left ventricular systolic functi on. EF of 60 to 65% with no evidence of regional wall motion abnorm ality with grade I diastolic dysfunction, elevated filling pressures . Mild mitral valve regurgitation. Mild left atrial enlargement. Bicuspid aortic valve with aortic sclerosis, no evidence of stenosis. Trivial aortic insufficiency. Mildly dilated aortic root. Normal right ventricular f unction. No evidence of pericardial disease. KEVON/fortino - transcribed in [facility] Organization Address City/State/Zipcode Ph one Number [facility] [place] CLIA # [id number] [place] [id number] CADIOLOGY 100 [facility] [place] CLIA # [id number] [place] [phone] documented in this encounter Visit Diagnoses Diagnosis Coronary artery disease involving nativ e coronary artery of [place] heart without angina pectoris Pre-op examination Preoperative examination, unspecified Peripheral arterial disease Unspecified disorders of arteries and a rterioles documented in this encounter
--- OUTSIDE RECORDS SUMMARY | 2020-03-24 13:40 | XMS REPORT | Encounter Summary ---
Author Author [facility] [place], [place], [facility] Organization [facility] Zhanna Anderson, Jose Cruz, [facility] Address Unknown Phone Unavailable Care Team Providers Care Bar Gauger And Lubricator Tender Name Role Phone Claus Couch MD PCP Reason for Referral * Outpatient Services (Routine) Referred By Contact Referred To Contact Status Reason Specialty Diagnoses / Procedures Karen Weiner DNP 100 [facility] [address] [place] [id number] Closed Diagnoses Coronary artery disease involving [place] coronary artery of [place] heart without angina pectoris Pre-op examination Peripheral arterial disease P rocedures ECHO COMPLETE Reason for Visit * Reason Comments Follow Up needing clearance for surge ry on right elbow with Dr. Maloney at [address]. Denies any new cardiac symptoms . Encounter Details Care Team Description Date Type Department Karen Weiner DNP 100 [facility] [address] [place] [id number] Coronary artery disease involving [place] coronary artery of [place] heart without angina pectoris (Primary Dx); Pre-op examination; Peripheral arterial disease; Hyperlipidemia with target LDL less than 70; Bursitis of right elbow, unspecified bursa 01/21/2018 Office Visit [facility] [address] [place] [id number] [...] Signs Reading Time Taken Comments Vital Sign 100/50 01/21/2018 10:58 AM CDT Blood Pressure 71 01/21/2018 10:58 AM CDT Pulse - - Temperature - - Respiratory Rate 96% 01/21/2018 10:58 AM CDT RA Oxygen Saturation - - Inhaled Oxygen Concentration 69.9 kg (154 lb) 01/21/2018 10:58 AM CDT Weight 167.6 cm (5' 6") 01/21/2018 10:58 AM CDT Height 24.86 01/21/2018 10:58 AM CDT Body Mass Index documented in this encounter Progress Notes * Walter Oconnor MD - 01/25/2018 9:17 AM CDT agree * Karen Weiner DNP - 01/21/2018 11:34 AM CDT ROUTINE FOLLOW UP NOTE ([facility]) Primary Provider: Claus Couch MD Primary Ordnance Handler: Dr. Oconnor The following statements must be viewed [...] state unequivocally that I reviewed all information. Patient Name: Oliverio Daltno Visit Date: 01/21/18 Age/Sex: 67 y.o. male : 1950 Chief Complaint: Chief Complaint Patient presents with Follow Up needing clearance for surgery on right elbow with Dr. Maloney at [address] . Denies any new cardiac symptoms. HISTORY OF PRESENT ILLNESS HPI This is a 67 y.o. male is here today for surgical clearance. CV histo ry includes CAD, peripheral arterial disease and hyperlipidemia. Mr. Dalton has chronic bursitis that has been unsuccessfully drained and now it is recommended that he have an open surgery for removal of the bursitis sack. 1. Can he hold Plavix 5 days 2. Surgical Clearance SUBJECTIVE: No CV complaints LAST HOSPITAL/OFFICE VISIT HISTORY: Last OV note from 02/19/[address] Oconnor reviewed. REVIEW OF SYSTEMS Review of Systems Constitutional: Positive for fatigue. Negative for diaphoresis, fever and unexpe cted weight change. HENT: Negative for nosebleeds. Hearing loss Yes Eyes: Corrective lenses Yes Respiratory: Negative for apnea, cough ("once in awhile". Recently treated for exacerbation of his asthma), chest tightness, shortness of breath ("No more than usual" He states he doesn't breathe very deep routinely) and wheezing. Cardiovascular: Negative for chest pain, palpitations and leg swelling. Chest pressure? No Chest tightness? No Chest heaviness? No Fast heart beats? No Gastrointestinal: Negative for abdominal distention, abdominal pain and blood in stool. Endocrine: Negative for cold intolerance and heat intolerance. Genitourinary: Negative for hematuria. Musculoskeletal: Positive for back pain. Negative for arthralgias. Right elbow bursitis Skin: Negative for rash. Neurological: Negative for dizziness, syncope, weakness, light-headedness, numbn ess and headaches. Hematological: Bruises/bleeds easily. Psychiatric/Behavioral: Negative for agitation, confusion and sleep disturbance. The patient is not nervous/anxious. Depression? Yes, but no suicidal ideation Functional Capacity: Patient is not Impaired, but has limitations. He needs a walker to ambulate. He has [facility] and has "helpers" to assist him with ADL's. Luz augustin does live independently in own home. He has not driven since he broke his hip and leg last year. OBJECTIVE: PHYSICAL EXAM BP 100/50 (BP Location: Left arm, Patient Position (BP): Sitting, BP Cuff Size: Adult) | Pulse 71 | Ht 5' 6" (1.676 m) | Wt 69.9 kg (154 lb) | SpO2 96% Comm ent: RA | BMI 24.86 kg/m Physical Exam Constitutional: He is oriented to person, place, and time. He appears well-devel oped and well-nourished. HENT: No vertical ear creases. Hearting aides Yes in the right ear Eyes: EOM are normal. Corrective eyewear Yes Xanthelasma No Neck: No JVD present. No carotid bruit noted with auscultation (bilaterally) Cardiovascular: Normal rate, regular rhythm, S1 normal and S2 normal. Exam reve als no gallop, no distant heart sounds and no friction rub. No murmur (1/6 grade murmur) heard. Pulmonary/Chest: Effort normal and breath sounds normal. No respiratory distress . He has no wheezes. He has no rales. On room air. One PPD of cigarettes Abdominal: Musculoskeletal: Normal range of motion. He exhibits no edema. Right elbow bursitis with dressing Neurological: He is alert and oriented to person, place, and time. Skin: Skin is warm and dry. No rash noted. Psychiatric: He has a normal mood and affect. His behavior is normal. Thought co ntent normal. Nursing note and vitals reviewed. Estimated body mass index is 24.86 kg/m as calculated from the following: Height as of this encounter: 5' 6" (1.676 m). Weight as of this encounter: 69.9 kg (154 lb). The ASCVD Risk score (Brandeelauren FLYNN Jr., et al., 2013) failed to calculate for the fol lowing reasons: Cannot find a previous HDL lab Cannot find a previous total cholesterol lab HAS-BLED High Risk 3 Total Score 1 Hypertension Hx 1 Age 1 Anemia/Bleeding Predisposition/Major Bleeding Hx [id number] Moderate-High Risk 3 Total Score 1 Hypertension Hx 1 Vascular Disease Hx 1 Age BP 100/50 (BP Location: Left arm, Patient Position (BP): Sitting, BP Cuff Size: Adult) | Pulse 71 | Ht 5' 6" (1.676 m) | Wt 69.9 kg (154 lb) | SpO2 96% Comm ent: RA | BMI 24.86 kg/m . Last documented weight: Weight: 69.9 kg (154 lb) (01/21/18 1058) Patient states that he is compliant with medications. Does patient follow a special diet: No. Patient appears hemodynamically stable and free of overt evidence of CHF. In addition, he denies any subjective symptoms suggestive of angina. LABS: Lab Results Component Value Date/Time WBC 7.3 09/06/2017 05:41 AM HEMOGLOBIN 7.4 (L) 09/06/2017 05:41 AM POC HEMOGLOBIN 12.2 (L) 09/02/2012 04:41 PM HEMATOCRIT 24.0 (L) 09/06/2017 05:41 AM POC HEMATOCRIT 36.0 (L) 09/02/2012 04:41 PM PLATELETS 433 09/06/2017 05:41 AM MCV 86.3 09/06/2017 05:41 AM ALT 17 2017 07:53 PM AST 48 (H) 2017 07:53 PM SODIUM 136 09/06/2017 05:41 AM POTASSIUM 3.7 09/06/2017 05:41 AM POC POTASSIUM 4.8 09/02/2012 04:41 PM CHLORIDE 99 09/06/2017 05:41 AM CO2 23 09/06/2017 05:41 AM CREATININE 0.44 (L) 09/06/2017 05:41 AM BUN 4 (L) 09/06/2017 05:41 AM INR 1.4 (H) 09/04/2017 05:26 AM GLUCOSE 143 (H) 09/06/2017 05:41 AM Lab Results Component Value Date/Time BRAIN NATRIURETIC PEPTIDE 169 (H) 09/02/2012 03:25 PM ALLERGIES: Allergy list was reviewed with patient at the time of office visit a nd updated as necessary. Penicillins; Doxycycline; Phenobarbital; Piperacillin-tazobactam; Sulfamethoxazo le-trimethoprim; Terazosin; and Valium [diazepam] MEDICATIONS; I reviewed the medication list with the patient and updated as needed based on i nformation provided to my nurse and to myself, by the patient (or their responsi ble green party where applicable). If there are inaccuracies, I am not aware of them at the time of this note. If made aware of any discrepancies, I will addend my note and update medication list. Patient's (and/or the responsible green party acting on their behalf) are responsible for maintaining an accurate list of current me dications, their doses and frequency of administration, as responsible participa nts in their healthcare. Current Outpatient Prescriptions Medication Sig Dispense Refill ramipril (ALTACE) 5 mg capsule Take 1 Capsule (5 mg) by mouth daily with regla ch. 30 Capsule 0 OLANZapine (ZYPREXA) 2.5 mg tablet Take 2.5 mg by mouth daily at bedtime. LORazepam (ATIVAN) 1 mg tablet Take 1 mg by mouth every 12 hours. traZODone (DESYREL) 50 mg tablet Take 50 mg by mouth daily at bedtime. albuterol (PROAIR HFA) 90 mcg/Actuation Inhalation HFAA inhaler Take 2 Puffs by inhalation every 4 hours as needed for Shortness of Breath or Wheezing. 6.7 Gram 1 bethanechol (URECHOLINE) 25 mg Oral tablet Take 25 mg by mouth 4 times daily . clopidogrel (PLAVIX) 75 mg Oral Tab Take 75 mg by mouth daily. tamsulosin (FLOMAX) 0.4 mg Oral capsule Take 0.4 mg by mouth daily with supp er. FLUoxetine (PROZAC) 20 mg Oral tablet Take 40 mg by mouth daily. magnesium oxide 250 mg Oral Tab Take 250 mg by mouth 3 times daily with meal s. phenytoin (DILANTIN) 200 mg Oral Cap Take 200 mg by mouth 2 times daily. fenofibrate nanocrystallized (TRICOR) 145 mg Oral tablet Take 145 mg by mout h daily. ezetimibe (ZETIA) 10 mg Oral tablet Take 10 mg by mouth daily at bedtime. simvastatin (ZOCOR) 40 mg Oral tablet Take 40 mg by mouth daily at bedtime. belladonna alkaloids-opium (B&O 15A) 16.2-30 mg Suppository Insert 1 Suppository by rectum every 6 hours as needed (bladder spasms). Max Daily Amount: 4 Suppositories 10 Suppository 0 nitroglycerin (NITROSTAT) 0.4 mg Tablet, Sublingual Place [...] nhalation 2 times daily. 12 Gram 1 zolpidem (AMBIEN) 10 mg Oral tablet Take 10 mg by mouth nightly as needed. pioglitazone (ACTOS) 30 mg Oral tablet Take 30 mg by mouth daily with breakf ast. loratadine (CLARITIN) 10 mg Oral tablet Take 10 mg by mouth daily. esomeprazole (NEXIUM) 20 mg Oral CpDR Take 20 mg by mouth daily before break fast. multivitamin (DAILY-DAVID) Oral tablet Take 1 Tab by mouth daily after lunch. metoprolol succinate ER 24 hour (TOPROL-XL) 25 mg Oral tablet Take 12.5 mg b y mouth daily. No current facility-administered medications for this visit. ASSESSMENT: ASSESSMENT/DIAGNOSIS: 1. Coronary artery disease involving [place] coronary artery of [place] heart with out angina pectoris - RAMIPRIL 5 MG ONE DAILY - PLAVIX 75 MG ONE TAB DAILY - SIMVASTATIN 40 MG ONE TAB DAILY - METOPROLOL ER 12.5 MG ONE TAB DAILY - ECHO COMPLETE; Future 2. Pre-op examination - ECHO COMPLETE; Future - [facility]-Future and scheduled in [place] 3. Peripheral arterial disease 4. Hyperlipidemia with target LDL less than 70 - SIMVASTATIN 40 MG ONE TAB DAILY 5. Bursitis of right elbow - Proposed surgery by Dr. Yeung PLAN: PLAN OF CARE: 1. I have reviewed the patient's prior cardiovascular testing, labs and studies as pertinent to this visit and reviewed these findings with the patient. The franchesca martinez denies any questions. Reviewed last encounters in [facility] and available test s with patient today. 2. Ischemic workup 3. Accountable Care Organization documentation: BLOOD PRESSURE BP: 100/50 (01/21/18 1058) BP is normal defined as systolic reading < and = 119 and diastolic reading is < or = 79.. 4. Blood Pressure trends: BP Readings from Last 3 Encounters: 01/21/18 100/50 09/06/17 113/59 02/19/16 118/62 Wt Readings from Last 3 Encounters: 01/21/18 69.9 kg (154 lb) 09/05/17 68.4 kg (150 lb 12.7 oz) 02/19/16 89.4 kg (197 lb) 5. 6. PCP manages lipids 7. Current CV medications were reviewed and remain appropriate at this time. 8. Non cardiac issues were deferred to the trusting care of the Primary Care Pro vider and reinforcement made on how important follow up with their PCP is in rel ation to the patient's overall health and continuity of care. I will keep the P CP updated if changes are made from a CV perspective by me, or tests are generat ed based on my evaluation of the patient. 9. A copy of this office visit note is being sent to the primary care provider, Claus Couch MD (if they are not in our [facility] system) for their records. 10. An After Visit Summary was printed and given to the patient. The Patient and I reviewed his current medications, vital signs and current prob edwige list. We discussed modifications as needed. I reviewed the past medical his tory, family and social history. The current record reflects needed alterations and updates (if any) and was performed with the patient input (to the best of t he patient's knowledge). The problem list on record may not be all inclusive. I recommend the reader to review patient's record for needed information not in cluded in this note. I appreciate the privilege of participating in this patient's care. I am availa ble if I can be of any further assistance. Sincerely, Karen Weiner, NAYELY, RN-BC, ROTARY SCREEN PRINTING MACHINE OPERATOR, CERTIFIED ENERGY MANAGER-BC Advance Practice Registered Nurse [facility] Data Unavailable No future appointments. Medication List Accurate as of 01/21/18 11:35 AM. If you have any questions, ask your nurse or do ctor. CONTINUE taking these medications albuterol sulfate 90 mcg/Actuation inhaler Commonly known as: PROAIR HFA Take 2 Puffs by inhalation every 4 hours as needed for Shortness of Breath or Wh eezing. Signed by: Junior Duque DO Quantity: 6.7 Gram Refills: 1 AMBIEN 10 mg tablet Take 10 mg by mouth nightly as needed. Refills: 0 Generic drug: zolpidem belladonna alkaloids-opium 16.2-30 mg Suppository Commonly known [...] mouth daily at bedtime. Refills: 0 oxyCODONE-acetaminophen 5-325 mg tablet Commonly known as: PERCOCET Take 1 Tab by mouth every 6 hours as needed for Pain, Moderate. Refills: 0 phenytoin 200 mg Capsule Commonly [...] by mouth daily at bedtime. Refills: 0 ADDENDUM: REGARDING SURGERY: Nuclear myocardial perfusion imaging test from [facility] performed on Jan was reviewed. There is a small fixed defect in the inferior wall. Ot herwise normal myocardial scan with no reversible myocardial ischemia. This was performed due to patient's history of known coronary artery disease, hypertensio n, diabetes and being a preop evaluation. Per : Low risk stress test but patient has known multi vessel CAD by re mote cath and has some LV dysfunction. He low-moderate risk for CV complications documented in this encounter Plan of Treatment Not on filedocumented as of this encounter Results * ECHO COMPLETE (01/21/2018 1:11 PM CDT) EJECTION 60 50 - 65 percent [facility] [place] [facility] Specimen Narrative Performed At [facility] [place] TRANSTHORACIC ECHOCARDIOGRAM: CADIOLOGY DATE OF PROCEDURE: 01/21/2018. [...] of pericardial disease. KEVON/fortino - transcribed in Epic - [facility] Organization Address City/State/Zipcode Ph one Number [facility] CLIA # [id number] [place] [address] CADIOLOGY 100 [facility] [place] CLIA # [id number] [place] [address] CADIOLOGY 100 [facility] documented in this encounter Visit Diagnoses Diagnosis Coronary artery disease involving nativ e coronary artery of [place] heart without angina pectoris - Primary Pre-op examination Preoperative examination, unspecified Peripheral arterial disease Unspecified disorders of arteries and a rterioles Hyperlipidemia with target LDL less modesto n 70 Other and unspecified hyperlipidemia Bursitis of right elbow, unspecified bu rsa documented in this encounter
--- OUTSIDE RECORDS SUMMARY | 2020-03-24 13:40 | XMS REPORT | Encounter Summary ---
Author Author [facility] [place], [place], [place] Organization [facility] Zhanna Go, [place], [place] Address Unknown Phone Unavailable Care Team Providers Care Internist Medical Doctor Md Name Role Phone Claus Couch MD PCP Reason for Visit * Reason Comments Results [facility] stress test Encounter Details Care Team Description Date Type Department Karen Weiner DNP 100 [facility] [address] [place] [phone] Results ([facility] stress test) 02/08/2018 Chart Note [facility] [place] [address] [facility] [address] [place] [phone] Social History Date Tobacco Use Types Packs/Day Years Used Never Assessed Sex Assigned at Date Recorded Not on file Industry Job Start Date Occupation Not on file Not on file Not on file Travel End Travel History Travel Start No recent travel history available. documented as of this encounter Progress Notes * Walter Oconnor MD - 02/09/2018 10:17 AM CDT Low risk stress test but patient has known multi vessel CAD by remote cath and h as some LV dysfunction. He low-moderate risk for CV complications * Karen Weiner DNP - 02/08/2018 8:51 AM CDT Nuclear myocardial perfusion imaging test from [facility] performed on Jan was reviewed. There is a small fixed defect in the inferior wall. Ot herwise normal myocardial scan with no reversible myocardial ischemia. This was performed due to patient's history of known coronary artery disease, hypertensio n, diabetes and being a preop evaluation. I will confer with Dr. Oconnor regarding: Mr. Dalton has chronic bursitis that has been unsuccessfully drained and now it is recommended that he have an open surgery for removal of the bursitis sack. 1. Can he hold Plavix 5 days 2. Surgical Clearance documented in this encounter Plan of Treatment Not on filedocumented as of this encounter Visit Diagnoses Not on filedocumented in this encounter
--- OUTSIDE RECORDS SUMMARY | 2020-03-24 13:40 | XMS REPORT | Encounter Summary ---
Author Author [facility], [place], [place], [place], [place] Organization [facility] [place], [place], [place], [place] Address Unknown Phone Unavailable Care Team Providers Care Breast Splitter Name Role Phone Claus Couch MD PCP Encounter Details Care Team Description Date Type Department Karen Weiner, DNP 100 [facility] [address] [place] [phone] 01/26/2018 Chart Note [facility] [place] [address] [facility] [address] [place] [phone] Social History Date Tobacco Use Types Packs/Day Years Used Never Assessed Sex Assigned at Date Recorded Not on file Industry Job Start Date Occupation Not on file Not on file Not on file Travel End Travel History Travel Start No recent travel history available. documented as of this encounter Progress Notes * Lora Good, RN - 01/26/2018 2:28 PM CDT I spoke with centralized scheduling at [facility] and notified them PA done for Nuclear. They notified pt and caregiver of appointment date and donis e.Lora Good RN documented in this encounter Plan of Treatment Not on filedocumented as of this encounter Visit Diagnoses Not on filedocumented in this encounter
--- OUTSIDE RECORDS SUMMARY | 2020-03-24 13:40 | XMS REPORT | Encounter Summary ---
Author Author [facility], [place], [place], [place] Organization [facility] Zhanna Anderson, [place], [facility] Address Unknown Phone Unavailable Care Team Providers Care Coater Hand Name Role Phone Claus Couch MD PCP Reason for Visit * Reason Comments Follow Up Encounter Details Care Team Description Date Type Department Karen Weiner DNP 100 [facility] [address] [place] [id number] Follow Up 02/08/2018 Telephone [facility] [place] 100 [facility] [address] [place] [...] Telephone Encounter - Lora Good RN - 02/08/2018 10:30 AM CDT Karen Weiner DNP 1 hour ago (8:51 AM) Nuclear myocardial perfusion imaging test from [facility] performed on Jan was reviewed. There [...] hold Plavix 5 days 2. Surgical Clearance I gave update of above to pt and care provider and told them we would notify the m once clearance approval and approval to hold plavix Was received from Dr Natan Good, RN documented in this encounter Plan of Treatment Not on filedocumented as of this encounter Visit Diagnoses Not on filedocumented in this encounter
--- OUTSIDE RECORDS SUMMARY | 2020-03-24 13:41 | XMS REPORT | Encounter Summary ---
Author Author [facility] [place] [place] [place], [facility] Address Unknown Phone Unavailable Care Team Providers Care Fabrication Mig Welder Name Role Phone Claus Couch MD PCP Reason for Visit * Auth/Cert Referred By Contact Referred To Contact Status Reason Specialty Diagnoses / Procedures Jo 4 Intensive Care Unit [address] [facility] [place] [address] Critical Care Diagnoses Medicine Blood clot in bladder Hypotension anemia Hematuria Blood clot in bladder P rocedures CYSTOSCOPY Encounter Details Care Team Description Date Type Department Adrien Singh MD [address] [place] [address] [place] [address] Timo Jacques MD [address] [place] [address] [place] [address] Althea Gilliland DO [address] [facility] [place] [address] Yoshi Abraham MD [address] [place] [address] [place] [address] Acute blood loss anemia 2017 [facility] in 6th - Encounter Floor Surgical 09/06/[address] [place] [address] [place] [address] Social History Date Tobacco Use Types [...] Signs Reading Time Taken Comments Vital Sign 113/59 09/06/2017 12:58 PM CDT Blood Pressure 91 09/06/2017 12:58 PM CDT Pulse 36.7 C (98.1 F) 09/06/2017 12:58 PM CDT Temperature 18 09/06/2017 12:58 PM CDT Respiratory Rate 98% 09/06/2017 12:58 PM CDT Oxygen Saturation - - Inhaled Oxygen Concentration 68.4 kg (150 lb 12.7 oz) 09/05/2017 4:59 AM CDT Weight 165.1 cm (5' 5") 2017 3:00 PM CDT Height 25.09 2017 3:00 PM CDT Body Mass Index documented in this encounter Discharge Summaries * Yoshi Abraham MD - 09/06/2017 6:[address] [facility] Medical Discharge Summary Oliverio Tinsley 67 y.o. male 1950 CSN: [id number] Date of Admission: 2017 Date of Discharge: 09/06/2017 Discharging Physician: Yoshi Abraham MD PCP: Claus Couch MD LOS: 3 days Code Status at Discharge: Full Code Dispo: Home Labs and studies from this hospitalization needing follow up: H&H in 1 week Follow-up: You must follow up with Claus Couch MD in 1 week Urology f/u in 1 week Discharge Diagnoses and Relevant Hospital Course: Acute blood loss anemia Hematuria 2/2 UTI and hemorrhagic cystitis UTI cystitis Hypotension/shock Oliverio Tinsley is a 67 y.o. male who was admitted to [facility] on for acute blood anemia and hemorrhagic shock. Pt was initially admitted to the ICU and was started on levophed and IVF bolus. Pt noted to have hematuria and was being treated with Levaquin for UTI. His asa and plavix was held along with other BP medications. Urology was consulted and patient was started on CBI. Pt underwent cystoscopy and clot was removed and hematuria was considered due to UTI and hemorrhagic cystitis. Pt was weaned off from CBI and was given voiding trails which he tolerated. No further blood was noted. Pt was discharged on plavix and his asa was held. Pt was told to f/u with urology in 1-2 weeks. Pt wa s told to get H&H next week. He was also told to return if bleeding occurs again. Pts bp medication was also adjusted before discharge. He was also given prescription of levaquin for UTI even though urine cx was negative it was considered that patient had UTI. Culture could be negative cause of patient being on abx. Discharge medications and new prescriptions: Medication List START taking these medications belladonna alkaloids-opium 16.2-30 mg Suppository Commonly known as: B&O 15A Insert 1 Suppository by rectum every 6 hours as needed (bladder spasms). Max Consuelo ly Amount: 4 Suppositories Signed by: Yoshi Abraham MD Quantity: 10 Suppository Refills: 0 CHANGE how you take these medications ramipril 5 mg capsule Commonly known as: ALTACE What changed: medication strength how much to take Take 1 Capsule (5 mg) by mouth daily with lunch. Signed by: Yoshi Abraham MD Quantity: 30 Capsule Refills: 0 CONTINUE taking these medications albuterol sulfate 90 mcg/Actuation inhaler Commonly known as: PROAIR HFA Take 2 Puffs by inhalation every 4 hours as needed for Shortness of Breath or Wh eezing. Signed by: Junior Duque DO Quantity: 6.7 Gram Refills: 1 AMBIEN 10 mg tablet Take 10 mg by mouth nightly as needed. Refills: 0 Generic drug: zolpidem bethanechol 25 mg tablet Commonly known as: [...] Duque DO Quantity: 12 Gram Refills: 1 levoFLOXacin 500 mg tablet Commonly known as: LEVAQUIN Take 1 Tablet (500 mg) by mouth daily at bedtime for 7 days. Signed by: Yoshi Abraham MD Quantity: 6 Tablet Refills: 0 LORazepam 1 mg tablet Commonly known as: [...] hours as needed for Nausea/Emesis. Refills: 0 simvastatin 40 mg tablet Commonly known as: ZOCOR Take 40 mg by mouth daily at bedtime. Refills: 0 traZODone 50 mg tablet Commonly known as: DESYREL Take 50 mg by mouth daily at bedtime. Refills: 0 STOP taking these medications aspirin 81 mg Tablet Commonly known as: AMELIA isosorbide mononitrate 60 mg Extended Release 24 hour tablet Commonly known as: IMDUR Where to Get Your Medications Information about where to get these medications is not yet available Ask your nurse or doctor about these medications belladonna alkaloids-opium 16.2-30 mg Suppository levoFLOXacin 500 mg tablet Consultants: IP CONSULT TO CASE MANAGEMENT Procedures performed: Procedure(s) (LRB): CYSTOSCOPY WITH CLOT EVACUATION BLADDER (N/A) PYELOGRAM RETROGRADE BILATERAL (Bilateral) BLADDER BIOPSY (N/A) Discharge Lab Data: (Please note date of lab as some may have preceeded admissio n) Recent Labs 09/03/17 19509/04/17 0054 09/04/17 0449 09/04/17 0526 09/04/17 1202 09/04/17202609/05/17 0027 09/05/17 0404 09/05/17 1209 09/05/17 1851 09/06/17 0027 09/06/17 0541 WBC 9.4 -- 8.2 -- -- -- -- 7.7 -- -- -- 7.3 HGB 6.6* 7.9* 8.0* -- 7.9* 8.5* 8.2* 8.1* 8.1* 7.5* 7.3* 7.4* HCT 21.4* 25.0* 24.5* -- 24.7* 26.2* 25.7* 24.8* 25.8* 24.1* 23.1* 24.0* PLT 613* -- 428 -- -- -- -- 399 -- -- -- 433 NA 133* -- 137 -- -- -- -- 136 -- -- -- 136 K 4.5 -- 4.1 -- -- -- -- 3.9 -- -- -- 3.7 CL 101 -- 102 -- -- -- -- 102 -- -- -- 99 CO2 22 -- 22 -- -- -- -- 20* -- -- -- 23 BUN 14 -- 11 -- -- -- -- 8 -- -- -- 4* CREAT 0.52* -- 0.53* -- -- -- -- 0.47* -- -- -- 0.44 * GLUCOSE 171* -- 171* -- -- -- -- 125* -- -- -- 143* ALT 17 -- -- -- -- -- -- -- -- -- -- -- AST 48* -- -- -- -- -- -- -- -- -- -- -- INR 1.4* -- -- 1.4* -- -- -- -- -- -- -- -- Estimated Creatinine Clearance: 61.5 mL/min (by C-G formula based on SCr of 1 mg /dL). Please refer to hospital course above. Discharge Exam: BP 113/59 (BP Location: Left arm, Patient Position (BP): Supine) | Pulse 91 | Temp 98.1 F (36.7 C) (Oral) | Resp 18 | Ht 5' 5" (1.651 m) | Wt 68.4 kg ( 150 lb 12.7 oz) | SpO2 98% | BMI 25.09 kg/m Last documented weight: Weight: 68.4 kg (150 lb 12.7 oz) (09/05/17 0464) Physical Exam: General Alert, oriented, no acute distress Lungs clear to auscultation bilaterally Heart regular rate and rhythm, S1, S2 normal, no murmur, click, rub or gallop Abdomen soft, non-tender, without masses or organomegaly Extremities Normal, no edema Neuro alert, oriented x3, affect appropriate, no focal neurological deficits Discharge Condition: improved to baseline. Activity: activity as tolerated. Diet: DIET CLEAR LIQUID Wound Care: As directed Primary Emergency Contact: HELLEN VELOZ, Signed: Yoshi Abraham MD This discharge took greater than 30 minutes of time to prepare and over half of this time was spent in counseling and coordination of care documented in this encounter Medications at Time [...] needed for Shortness of Breath or Wheezing. 09/06/2017 09/13/2017 levoFLOXacin (LEVAQUIN) Take 1 Tablet 6 Tablet 0 500 mg tablet (500 mg) by mouth daily at bedtime for 7 days. 07/09/2018 oxyCODONE-acetaminophen Take 1 Tab by 0 (PERCOCET) 5-325 mg mouth every 6 tablet hours as needed for Pain, Moderate. 07/09/2018 zolpidem (AMBIEN) 10 mg Take 10 mg by 0 Oral tablet mouth nightly as needed. documented as of this encounter Progress Notes * Audrey Witt, PRIYA - 09/06/2017 3:09 PM CDT Cm notes: informed that pt is going home today. I talked with pt about going alessandro e, he states that his sister in law is coming to get him. I have called her: Ferny Tinsley [phone], and she is on her way here. She states that he has in h ome care from "[facility]" Has an aid that comes from 9 to 1 and then from 3- 9 and then comes back at 10 P.M. Til 4 A.M. Lauren states that she also stays with him when needed. She denies any home needs and has no concerns about him go ing home today. Audrey Witt child welfare director [phone] * Shahram Michel MD - 09/06/2017 2:05 PM CDT SUBJECTIVE: No new complaints. Urine clear. Vitals: BP 113/59 (BP Location: Left arm, Patient Position (BP): Supine) | Pulse 91 | Temp 98.1 F (36.7 C) (Oral) | Resp 18 | Ht 5' 5" (1.651 m) | Wt 68.4 kg ( 150 lb 12.7 oz) | SpO2 98% | BMI 25.09 kg/m Intake/Output Summary (Last 24 hours) at 09/06/17 1405 Last data filed at 09/06/17 1300 Gross per 24 hour Intake 1200 ml Output 3225 ml Net -202 ml OBJECTIVE: General Appearance: Resting comfortably and no apparent distress. Chest: Grossly clear, unlabored breathings. Heart: Perfial pulses symmetrical. Abdomen: Soft, non-tender, no CVAT. Extremities: No cyanosis or edema. Data Review: CBC: Lab Results Component Value Date/Time WBC 7.3 09/06/2017 05:41 AM HEMOGLOBIN 7.4 (L) 09/06/2017 05:41 AM POC HEMOGLOBIN 12.2 (L) 09/02/2012 04:41 PM HEMATOCRIT 24.0 (L) 09/06/2017 05:41 AM POC HEMATOCRIT 36.0 (L) 09/02/2012 04:41 PM PLATELETS 433 09/06/2017 05:41 AM MCV 86.3 09/06/2017 05:41 AM BMP: Lab Results Component Value Date/Time SODIUM 136 09/06/2017 05:41 AM POTASSIUM 3.7 09/06/2017 05:41 AM CHLORIDE 99 09/06/2017 05:41 AM CO2 23 09/06/2017 05:41 AM CALCIUM 8.1 (L) 09/06/2017 05:41 AM BUN 4 (L) 09/06/2017 05:41 AM CREATININE 0.44 (L) 09/06/2017 05:41 AM GLUCOSE 143 (H) 09/06/2017 05:41 AM ANION GAP 14 (H) 09/06/2017 05:41 AM ASSESSMENT/PLAN: Post clot evacuation due to anticoagulants and BPH and bilatera l retrogrades. Urine is clear. We will give him a voiding trial today. Resume hi s anticoagulants cautiously and at the lowest effective dose. Patient Active Problem List Diagnosis Code Chest pain, chronic R07.9 CAD (coronary artery disease) I25.10 Peripheral arterial disease I73.9 Leg edema, left R60.0 Dyspnea, chronic R06.00 COPD (chronic obstructive pulmonary disease) J44.9 Hypertension I10 Hyperlipidemia with target LDL less than 70 E78.5 Depression F32.9 Acute blood loss anemia D62 Hematuria R31.9 Greater trochanter fracture S72.113A Shahram Michel MD * Walter Tinsley MD - 09/05/2017 2:45 PM CDT He reports feeling much better. No further complaints of bladder spasms or lower abdominal discomfort. Vital signs stable. No further episodes of hypotension. Off pressors. Abdomen soft, nontender, nondistended. Ulloa catheter in place with clear/galindo color urine with very slow CBI. Extremities without edema. Hemoglobin 8.1. Serum creatinine 0.47 P OD #1 status post cystoscopy with clot evacuation and bilateral retrograde beltran lograms. Gross hematuria has resolved. Bladder spasms resolved following evacuation of la rge volume of old clot. Etiology of his episode remains unclear. No obvious sour ce identified yesterday. Bladder biopsies pending but will likely reveal only in flammation. The most likely scenario is urinary tract infection with hemorrhagic cystitis in the setting of Plavix. Recommend titrating his CBI to off as long as his urine stays clear. Should be okay to transfer floor. If his urine remains clear with CBI off, possible voiding trial in a.m. Indication for chronic anticoagulation should be reviewed. If necessary, he shou ld be able to restart any time. * Tammy Hernandez DNP - 09/05/2017 12:53 PM CDT Hospitalist Note: Assuming Medical Management Note date: 09/05/2017 ADMIT DATE 2017 Hospital LOS: 2 days Primary admission Dx- Acute blood loss anemia Chief Complaint- Acute blood loss anemia HPI- Oliverio Tinsley is a 67 y.o. male who was admitted on 09/03/17 for hematuria and syncope. Pt presented to [facility] after passing out at wound clini c. He reports hematuria and has been taking antibiotic for UTI. Pt was in shock with hemoglobin of 5.6 at OSH. Received fluid bolus and transferred to [facility] ICU for further care. He was transfused PRBC's. Levophed started for hyp otension. Urology consulted. 09/04/[address] Tinsley. Pt on continuous bladder irrigation, off vasopressors with stable H/H today. Ok to transfer to floor per typewriter assembler under hospitalist service. ROS - Constitutional- No fever EYE- no vision changes Lungs- no SOB, wheezing, cough CV- no chest pain, palpitation GI- no nausea, vomiting, diarrhea, no abdominal pain - bladder irrigation MS- no significant edema Remainder of 10 point review of system is negative as reviewed with the patient Prior to Admission Medications Prescriptions Last Dose Informant Patient Reported? Taking? FLUoxetine (PROZAC) 20 mg Oral tablet Yes No Sig: Take 40 mg by mouth daily. LORazepam (ATIVAN) 1 mg tablet Yes No Sig: Take 1 mg by mouth every 12 hours. OLANZapine (ZYPREXA) 2.5 mg tablet Yes No Sig: Take 2.5 mg by mouth daily at bedtime. albuterol (PROAIR HFA) 90 mcg/Actuation Inhalation HFAA inhaler No No Sig: Take 2 Puffs by inhalation every 4 hours as needed for Shortness of Breath or Wheezing. aspirin (AMELIA) 81 mg Oral Tab Yes No Sig: Take 81 mg by mouth daily with breakfast. bethanechol (URECHOLINE) 25 mg Oral tablet Yes No Sig: Take 25 mg by mouth 4 times daily. clopidogrel (PLAVIX) 75 mg Oral Tab Yes No Sig: Take 75 mg by mouth daily. esomeprazole (NEXIUM) 20 mg Oral CpDR Yes No Sig: Take 20 mg by mouth daily before breakfast. ezetimibe (ZETIA) 10 mg Oral tablet Yes No Sig: Take 10 mg by mouth daily at bedtime. fenofibrate nanocrystallized (TRICOR) 145 mg Oral tablet Yes No Sig: Take 145 mg by mouth daily. fluticasone (FLOVENT HFA) 110 mcg/actuation Inhalation Aero No No Sig: Take 1 Puff by inhalation 2 times daily. isosorbide mononitrate SR 24 hour (IMDUR) 60 mg Oral tablet Yes No Sig: Take 60 mg by mouth daily rn transfer. levofloxacin (LEVAQUIN) 500 mg Oral tablet No No Sig: Take 1 Tab by mouth daily at bedtime. loratadine (CLARITIN) 10 mg Oral tablet Yes No Sig: Take 10 mg by mouth daily. magnesium oxide 250 mg Oral Tab Yes No Sig: Take 250 mg by mouth 3 times daily with meals. metoprolol succinate ER 24 hour (TOPROL-XL) 25 mg Oral tablet Yes No Sig: Take 12.5 mg by mouth daily. multivitamin (DAILY-DAVID) Oral tablet Yes No Sig: Take 1 Tab by mouth daily after lunch. nitroglycerin (NITROSTAT) 0.4 mg Tablet, Sublingual Yes No Sig: Place 0.4 mg under tongue every 5 minutes as needed for Chest Pain. oxyCODONE-acetaminophen (PERCOCET) 5-325 mg tablet Yes No Sig: Take 1 Tab by mouth every 6 hours as needed for Pain, Moderate. phenytoin (DILANTIN) 200 mg Oral Cap Yes No Sig: Take 200 mg by mouth 2 times daily. pioglitazone (ACTOS) 30 mg Oral tablet Yes No Sig: Take 30 mg by mouth daily with breakfast. prochlorperazine maleate (COMPAZINE) 10 mg tablet Yes No Sig: Take 10 mg by mouth every 6 hours as needed for Nausea/Emesis. ramipril (ALTACE) 10 mg Oral capsule Yes No Sig: Take 10 mg by mouth daily with lunch. simvastatin (ZOCOR) 40 mg Oral tablet Yes No Sig: Take 40 mg by mouth daily at bedtime. tamsulosin (FLOMAX) 0.4 mg Oral capsule Yes No Sig: Take 0.4 mg by mouth daily with supper. traZODone (DESYREL) 50 mg tablet Yes No Sig: Take 50 mg by mouth daily at bedtime. zolpidem (AMBIEN) 10 mg Oral tablet Yes No Sig: Take 10 mg by mouth nightly as needed. Facility-Administered Medications: None Allergies Allergies Allergen Reactions Doxycycline Rash Phenobarbital Weakness "relaxes me too much" Piperacillin-Tazobactam Hives and Rash Breaks out Terazosin Other (See Comments) Chest heaviness, chest pain Valium [Diazepam] Other (See Comments) "stops breathing, no pulse" Unresponsiveness Past Medical History: Diagnosis Date Anxiety Arthritis [...] REPAIR HX HERNIA INGUINAL REPAIR HX PTCA Family History Problem Relation Age of Onset Heart Failure Mother Hypertension Mother Hypertension Father Stroke Father Social History Social History Marital status: Spouse name: N/A Number of children: N/A Years of education: N/A Occupational History Not Employed Social History Main Topics Smoking status: Never Smoker Smokeless tobacco: Never Used Alcohol use No Drug use: No Sexual activity: No Other Topics Concern Service No Blood Transfusions Yes Caffeine Concern No Occupational Exposure No Hobby Hazards No Sleep Concern No Stress Concern Yes Weight Concern Yes Special Diet Yes Back Care No Exercise No Bike Helmet No Seat Belt Yes Self-Exams No Social History Narrative Lives alone with his dog. Has daily chha Does not drive Objective BP 127/67 | Pulse 95 | Temp 97.9 F (36.6 C) (Oral) | Resp 17 | Ht 5' 5" (1.651 m) | Wt 68.4 kg (150 lb 12.7 oz) | SpO2 99% | BMI 25.09 kg/m Lab Results Component Value Date/Time NA 136 09/05/2017 04:04 AM K 3.9 09/05/2017 04:04 AM CL 102 09/05/2017 04:04 AM CO2 20 (L) 09/05/2017 04:04 AM CA 8.0 (L) 09/05/2017 04:04 AM BUN 8 09/05/2017 04:04 AM CREAT 0.47 (L) 09/05/2017 04:04 AM GLUCOSE 125 (H) 09/05/2017 04:04 AM ANIONGAP 14 (H) 09/05/2017 04:04 AM Lab Results Component Value Date/Time WBC 7.7 09/05/2017 04:04 AM HGB 8.1 (L) 09/05/2017 12:09 PM HGBPOC 12.2 (L) 09/02/2012 04:41 PM HCT 25.8 (L) 09/05/2017 12:09 PM HCTPOC 36.0 (L) 09/02/2012 04:41 PM PLT 399 09/05/2017 04:04 AM MCV 86.1 09/05/2017 04:04 AM Xr Fluoro Less Than 1 Hour Result Date: 09/04/2017 Order information only. Exam was auto-finalized. AccuCheks: Recent Labs 09/04/17 2356 09/05/17 0412 09/05/17 0819 09/05/17 1132 GLUCPOC 154* 129* 133* 162* Physical Exam Gen- Awake, alert, NAD HEENT- EOMI, no rhinorrhea, right IJ central line Heart- RRR Lung- CTA Abd- Soft, +BS, no TTP - bladder irrigation Ext- No edema, 2+ radial and pedal pulses. Neuro- CN 2-12 intact. Sensation intact. Skin- no rashes Impression Principle problem Acute blood loss anemia Current Active Hospital Problem List Active Hospital Problems Diagnosis Greater trochanter fracture Acute blood loss anemia Hematuria Resolved Hospital Problems Diagnosis Date Resolved Shock circulatory 09/05/2017 Discussion/Plan Acute blood loss anemia Hypotension 2 to anemia- resolved- off Vasopressors Transfused PRBC on admission Hgb 8.1 Pt was having hematuria Hematuria Urology consulted- Dr. Tinsley performed Cystoscopy Pt on continuous bladder irrigation Clear liquids Zofran prn for dry heaves Holding Plavix Continue Levaquin Urine cx shows no growht DVT px- SCD's Labs in am Some of home meds resumed- can be re-examined at discharge Tammy Hernandez DNP, 09/05/2017 12:53 PM Associated attestation - Althea Gilliland DO - 09/05/2017 2:57 PM CDT Chart reviewed. Patient seen and examined. Case d/w Tammy Coronado DNP. Agree wit h plan. Cystoscopy was unremarkable. * Timo Jacques MD - 09/05/2017 10:47 AM CDT Pulmonary/CC/Data Processing Auditor Progress Note Admit Date: 2017 24hr summary: The patient examined in ICU. Chart, labs, reviewed On levophed infusion Had some dry heaves earlier Objective: BP 127/67 | Pulse 95 | Temp 98.1 F (36.7 C) (Oral) | Resp 17 | Ht 5' 5" (1.651 m) | Wt 68.4 kg (150 lb 12.7 oz) | SpO2 99% | BMI 25.09 kg/m Temp (24hrs), Av.1 F (36.7 C), Min:97.8 F (36.6 C), Max:98.8 F (37 .1 C) Intake/Output Summary (Last 24 hours) at 09/05/17 1047 Last data filed at 09/05/17 0948 Gross per 24 hour Intake 3494.3 ml Output 2950 ml Net 544.3 ml Exam: HEENT: atraumatic, normocephalic, GRZEGORZ, conjunctivae pink, sclerae anicteric edentulous Neck: supple. No thyromegaly, RIJ central line Chest: is symmetrical, equal air entry, no wheezes or crackles. CVS: Regular rate and rhythm. Normal S1 and S2, no murmurs, gallops or rubs. Abdomen: soft, no tenderness or apparent masses. Extremities: no clubbing, cyanosis or edema. Neurological exam: as above Skin: no rash. Labs and radiology: CBC: Recent Labs 09/03/17 1508 09/03/17195209/04/17 0054 09/04/17 0449 09/04/17 1202 09/04/177 09/05/17 0027 09/05/17 0404 WBC 10.9 9.4 -- 8.2 -- -- -- 7.7 HGB 6.4* 6.6* 7.9* 8.0* 7.9* 8.5* 8.2* 8.1* HCT 20.6* 21.4* 25.0* 24.5* 24.7* 26.2* 25.7* 24.8* PLT 561* 613* -- 428 -- -- -- 399 MCV 83.4 84.6 -- 83.6 -- -- -- 86.1 BMP: Recent Labs 09/03/17 1508 09/03/17195209/04/17 0449 09/05/17 0404 GLUCOSE 214* 171* 171* 125* BUN 18 14 11 8 CREAT 0.61* 0.52* 0.53* 0.47* NA 135* 133* 137 136 K 4.7 4.5 4.1 3.9 CL 100 101 102 102 CO2 23 22 22 20* ANIONGAP 12 10 13 14* CA 8.1* 7.9* 8.4* 8.0* LFTs: Recent Labs 09/03/17 1508 09/03/171952 ALKPHOS 117 116 ALT 15 17 AST 20 48* BILITOTAL 0.3 0.3 ALBUMIN 2.9* 2.7* Coagulation: Recent Labs 09/03/17195209/04/17 0526 PT 16.8* 17.3* INR 1.4* 1.4* CIE: Lab Results Component Value Date/Time CKMB 2.1 2012 04:23 AM CKMB 2.0 09/02/2012 11:20 PM CKMB 2.8 09/02/2012 03:25 PM TROPONIN I <0.06 2012 04:23 AM TROPONIN I <0.06 09/02/2012 11:20 PM TROPONIN I <0.06 09/02/2012 03:25 PM ABGs: Recent Labs 09/03/17 1721 PHARTERIAL 7.40 [id number] 36 PO2ART 102 JBO8ACR 22 BASEEXCESS -2.4* Glucose: Recent Labs 09/04/17 1609 09/04/17 2003 09/04/17 2027 09/04/17 2356 09/05/17 0412 09/05/17 0819 GLUCPOC 142* 160* 165* 154* 129* 133* Urine culture negative so far chest X-ray reviewed: none today Prophylaxis: sequential compression devices proton pump inhibitor Medications, nutrition, physical therapy, eye care: reviewed Assessment: Patient Active Problem List Diagnosis Code CAD (coronary artery disease) I25.10 Peripheral arterial disease I73.9 Dyspnea, chronic R06.00 COPD (chronic obstructive pulmonary disease) J44.9 Hypertension I10 Hyperlipidemia with target LDL less than 70 E78.5 Depression F32.9 Acute blood loss anemia D62 Hematuria R31.9 Greater trochanter fracture S72.113A Plan: zofran prn Clear liquids He is on continuous bladder irrigation. Off vasopressors with stable H/H Will transfer to floor to hospitalist service. Discussed with them Selected home medications restarted. Rest can be assessed at the time of dischar ge Appreciate urology help About 30 min spent on evaluation and coordination of care Timo Jacques MD * David Bay MD - 09/05/2017 3:[address] [facility] Cross Cover Call Discussed with nurse by telephone. Ativan 1 mg intravenously was ordered for the management of an impending panic a ttack. David Bay MD, [facility] * Walter Tinsley MD - 09/04/2017 3:11 PM CDT Overall feeling well. Some bladder spasms last night and resolved. Vital signs stable and hypotension resolved. Abdomen soft, nontender and nondistended. Ulloa catheter in place with bloody ur ine without clots. Etiology of his gross hematuria remains unclear. He has a large amount of clot i n his bladder. I discussed the situation with him and his family again today. I recommend proceeding to the operating room for cystoscopy with clot evacuation and bilateral retrograde pyelograms later today. Details of the procedure discu ssed as well as risks and possible complications. * Nayely Lane RD - 09/04/2017 10:30 AM CDT Clinical Nutrition Diagnostic Initial Intervention Nutrition Assessment: Admitting Diagnosis/Age/Gender: Shock 67 y/o male PMH: Past Medical History: Diagnosis Date Anxiety Arthritis CAD S/P percutaneous coronary angioplasty CHF (congestive heart failure) COPD (chronic obstructive pulmonary disease) Depression GERD (gastroesophageal reflux disease) Hyperlipidemia LDL goal < 70 Hypertension Peripheral vascular disease Current Labs: Lab Results Component Value Date/Time NA 137 09/04/2017 04:49 AM K 4.1 09/04/2017 04:49 AM CL 102 09/04/2017 04:49 AM CO2 22 09/04/2017 04:49 AM CA 8.4 (L) 09/04/2017 04:49 AM BUN 11 09/04/2017 04:49 AM CREAT 0.53 (L) 09/04/2017 04:49 AM GLUCOSE 171 (H) 09/04/2017 04:49 AM TOTALPROTEIN 5.0 (L) 2017 07:53 PM ALBUMIN 2.7 (L) 2017 07:53 PM BILITOTAL 0.3 2017 07:53 PM ALKPHOS 116 2017 07:53 PM AST 48 (H) 2017 07:53 PM ALT 17 2017 07:53 PM ANIONGAP 13 09/04/2017 04:49 AM Intake/Output Summary (Last 24 hours) at 09/04/17 1030 Last data filed at 09/04/17 0729 Gross per 24 hour Intake 2529.2 ml Output 4000 ml Net -1470.8 ml Significant Meds: Current Facility-Administered Medications Ordered in Epic Medication Dose Route Frequency Provider Last Rate Last Dose levoFLOXacin (LEVAQUIN) 750 mg/150 mL in D5W IVPB 750 mg 750 mg IV q 24 karly r Timo Jacques MD 100 mL/hr at 09/04/17 0914 750 mg at 09/04/17 0914 naloxone (NARCAN) 0.4 mg/mL injection 0.1 mg 0.1 mg IV See Admin Notes Timo Epstein MD docusate sodium (COLACE) capsule 100 mg 100 mg Oral BID Timo Jacques MD 100 mg at 09/04/17 0903 magnesium hydroxide (MILK OF MAGNESIA) oral suspension 30 mL 30 mL Oral Consuelo ly PRN Timo Jacques MD sodium chloride 0.9% infusion IV Continuous Timo Jacques MD 30 mL/hr at 09/03/17 1716 pantoprazole (PROTONIX) injection 40 mg 40 mg IV Daily Timo Jacques MD 40 mg at 09/04/17 0903 sodium chloride 0.9 % flush injection 10 mL 10 mL IV q 12 hour PRN Kyung Jacques MD 10 mL at 09/04/17 0903 norepinephrine (LEVOPHED) 4 mg in dextrose 5% 250 mL infusion 0.05 mcg/kg/m in IV Titrate Timo Jacques MD 2.6 mL/hr at 09/04/17 1005 0.01 mcg/kg/min at 1005 morphine 4 mg/mL injection 2 mg 2 mg IV q 3 hour PRN Timo Jacques MD 2 mg at 09/04/17 0909 belladonna alkaloids-opium (B&O 15A) 16.2-30 mg rectal suppository 1 Suppository 1 Suppository Rectal q 6 hour PRN Walter Tinsley MD 1 Suppository at 09/04/17724 Anthropometrics: Height: 5' 5" (165.1 cm) (09/03/171499) Admit Weight: 70.3 kg (154 lb 15.7 oz) (09/03/171499) Current Weight: 70.3 k g (154 lb 15.7 oz) (09/03/171499) IBW 136# 61.8kg IBW% 114 % ABW BMI (Calculated): 25.79 (09/03/171499) Weight Changes Energy Kcals 1758 kcal ( 25 Kcals/kg ) Fluids 1758 ( 25 mL/Kg ) Protein 70-84 grams (1-1.2 gm/kg ) Current Giorgi Score Giorgi Score: 14 (09/04/17728) Last Bowel Movement: Bowel Sounds: All Quadrants: hypoactive (09/04/17728) Bowel Sounds: Bowel Sounds: All Quadrants: hypoactive (09/04/17728) Pressure Ulcer: Pressure Injury 09/04/17749 1 Left: coccyx Stage 2-Pressure In jury Wound Base: moist;pink (09/04/17749) Pressure Injury 09/04/17 0750 2 midline gluteal Stage 2-Pressure Injury Wound Ba se: moist;pink (09/04/17749) Pressure Injury 09/04/17 0750 3 Right: coccyx Stage 2-Pressure Injury Wound Base : moist;pink (09/04/17749) Current Diet RX: DIET NPO Strict % Intake Nutrition Diagnostic: Nutrition Dx: Inadequate protein energy intake Is related to no MNT order, increased needs for wound healing As evidenced by signs and symptoms of NPO Nutrition Prescription: Increase protein energy intake with start of MNT next 24 -48hr Nutrition Intervention: Chart and labs reviewed: BP alert received for Stage II pressure ulcer Midline Gluteal and Right Coccyx area, pt currently NPO for Cysto scopy r/t blood loss and clots, 2 units PRBC's given last 24 hr + 4 units FFP, D rips Levophed, Levaquin at this time, Labs Ca+ 8.4 (L), Glucose 171 (H), Albumi n 2.7 (L), AST 48 (H) pt reports he's hungry, plan advance diet as medically abl e next 24/48hr Nutrition Monitoring/ Evaluation: F/U 2-4 days to recheck med plan and MNT julia garland Pager #: [phone] * Timo Jacques MD - 09/04/2017 8:09 AM CDT Pulmonary/CC/Data Processing Auditor Progress Note Admit Date: 2017 24hr summary: The patient examined in ICU. Chart, labs, CXR reviewed On levophed infusion Cystoscopy planned later toda Objective: BP 129/62 | Pulse 90 | Temp 98.8 F (37.1 C) (Oral) | Resp 14 | Ht 5' 5" (1.651 m) | Wt 70.3 kg (154 lb 15.7 oz) | SpO2 98% | BMI 25.79 kg/m Temp (24hrs), Av F (36.7 C), Min:97.6 F (36.4 C), Max:99.1 F (37.3 C) Intake/Output Summary (Last 24 hours) at 09/04/17 0809 Last data filed at 09/04/17 0729 Gross per 24 hour Intake 2529.2 ml Output 4000 ml Net -1470.8 ml Exam: HEENT: atraumatic, normocephalic, GRZEGORZ, conjunctivae pink, sclerae anicteric Neck: supple. No thyromegaly, JVD or carotid bruits. Chest: is symmetrical, equal air entry, no wheezes or crackles. CVS: Regular rate and rhythm. Normal S1 and S2, no murmurs, gallops or rubs. Abdomen: soft, no tenderness or apparent masses. Extremities: no clubbing, cyanosis or edema. Neurological exam: as above Skin: no rash. Labs and radiology: CBC: Recent Labs 09/03/17 1508 09/03/17 1953 09/04/17 0054 09/04/17 0449 WBC 10.9 9.4 -- 8.2 HGB 6.4* 6.6* 7.9* 8.0* HCT 20.6* 21.4* 25.0* 24.5* PLT 561* 613* -- 428 MCV 83.4 84.6 -- 83.6 BMP: Recent Labs 09/03/17 1508 09/03/17195209/04/17 0449 GLUCOSE 214* 171* 171* BUN 18 14 11 CREAT 0.61* 0.52* 0.53* NA 135* 133* 137 K 4.7 4.5 4.1 CL 100 101 102 CO2 23 22 22 ANIONGAP 12 10 13 CA 8.1* 7.9* 8.4* LFTs: Recent Labs 09/03/17 1508 09/03/171952 ALKPHOS 117 116 ALT 15 17 AST 20 48* BILITOTAL 0.3 0.3 ALBUMIN 2.9* 2.7* Coagulation: Recent Labs 09/03/17195209/04/17 0526 PT 16.8* 17.3* INR 1.4* 1.4* CIE: Lab Results Component Value Date/Time CKMB 2.1 2012 04:23 AM CKMB 2.0 09/02/2012 11:20 PM CKMB 2.8 09/02/2012 03:25 PM TROPONIN I <0.06 2012 04:23 AM TROPONIN I <0.06 09/02/2012 11:20 PM TROPONIN I <0.06 09/02/2012 03:25 PM ABGs: Recent Labs 09/03/17 1721 PHARTERIAL 7.40 PII9OPL 36 PO2ART 102 KPV6KKK 22 BASEEXCESS -2.4* Glucose: Recent Labs 09/03/17195109/04/17 0742 GLUCPOC 181* 199* chest X-ray reviewed: none today Prophylaxis: sequential compression devices proton pump inhibitor Medications, nutrition, physical therapy, eye care: reviewed Assessment: Diagnosis Code CAD (coronary artery disease) I25.10 Peripheral arterial disease I73.9 Leg edema, left R60.0 Dyspnea, chronic R06.00 COPD (chronic obstructive pulmonary disease) J44.9 Hyperlipidemia with target LDL less than 70 E78.5 Depression F32.9 Shock circulatory R57.9 Acute blood loss anemia D62 Hematuria R31.9 Greater trochanter fracture S72.113A Plan: 1. NS bolus 2. Cystoscopy planned for this afternoon 3. Incidental finding of acute R greater trochanter fracture discussed with Dr Laxmi goff Family Communication: no family here yet Critical Care Time: 30 min Timo A. Ahmed, MD * Isha Villalba RN - 09/04/2017 7:50 AM CDT Three POA stage 2 pressure injuries to coccyx, see flow sheet for measurements. Bilateral heels intact, slow to raymundo, bordered mepilex placed. Orders entered into [facility]. Amara ext# [phone] * David Bay MD - 2017 9:31 PM CDT Discussed with nurse by telephone. Lab Results Component Value Date/Time WBC 9.4 2017 07:53 PM HGB 6.6 (LL) 2017 07:53 PM HGBPOC 12.2 (L) 09/02/2012 04:41 PM HCT 21.4 (L) 2017 07:53 PM HCTPOC 36.0 (L) 09/02/2012 04:41 PM PLT 613 (H) 2017 07:53 PM MCV 84.6 2017 07:53 PM He is still actively bleeding. Consent for blood is still in the chart. The patient has no known jewish prohibitions against blood transfusions. One unit of packed red blood cells was ordered. David Bay MD, [facility] [employer] 10:10 PM [facility] Cover Call Discussed with nurse by telephone. He has worsening abdominal pain and tendern ess and ongoing gross hematuria. The in house physician and urologist will be n otified. David Bay MD, [facility] [employer] documented in this encounter H&P Notes * Timo Jacques MD - 2017 3:41 PM CDT Chief Complaint: syncope, hemeturia History of Present Illness: Oliverio Tinsley is a 67 y.o. male with PMH CAD, HTN, COPD Home medications include plavix Presented to [facility] after passing out at wound clinic Has been having hemeturia Was being treated with out patient antibiotics for UTI Was in shock with hemoglobin of 5.6 at OSH INR was 1.2 Received fluid bolus Transferred to [facility] for further care Prior to Admission medications Medication Sig Start Date End Date Taking? Authorizing Provider OLANZapine (ZYPREXA) 2.5 mg tablet Take 2.5 mg by mouth daily at bedtime. Pro vider, Historical LORazepam (ATIVAN) 1 mg tablet Take 1 mg by mouth every 12 hours. Provider, H istorical traZODone (DESYREL) 50 mg tablet Take 50 mg by mouth daily at bedtime. Provid er, Historical nitroglycerin (NITROSTAT) 0.4 mg Tablet, Sublingual Place 0.4 mg under tongue ev len 5 minutes as needed for Chest Pain. Provider, Historical prochlorperazine maleate (COMPAZINE) 10 mg tablet Take 10 mg by mouth every 6 ho urs as needed for Nausea/Emesis. Provider, Historical oxyCODONE-acetaminophen (PERCOCET) 5-325 mg tablet Take 1 Tab by mouth every 6 h ours as needed for Pain, Moderate. Provider, Historical fluticasone (FLOVENT HFA) 110 mcg/actuation Inhalation Aero Take 1 Puff by inhal ation 2 times daily. 09/03/12 Junior Duque, DO levofloxacin (LEVAQUIN) 500 mg Oral tablet Take 1 Tab by mouth daily at bedtime. 09/03/12 Junior Duque, DO albuterol (PROAIR HFA) 90 mcg/Actuation Inhalation HFAA inhaler Take 2 Puffs by inhalation every 4 hours as needed for Shortness of Breath or Wheezing. 09/03/12 Junior Duque, DO aspirin (AMELIA) 81 mg Oral Tab Take 81 mg by mouth daily with breakfast. Pr ovider, Historical zolpidem (AMBIEN) 10 mg Oral tablet Take 10 mg by mouth nightly as needed. Provider, Historical pioglitazone (ACTOS) 30 mg Oral tablet Take 30 mg by mouth daily with breakfast. Provider, Historical bethanechol (URECHOLINE) 25 mg Oral tablet Take 25 mg by mouth 4 times daily. Provider, Historical clopidogrel (PLAVIX) 75 mg Oral Tab Take 75 mg by mouth daily. Provider, Hi storical tamsulosin (FLOMAX) 0.4 mg Oral capsule Take 0.4 mg by mouth daily with supper. Provider, Historical FLUoxetine (PROZAC) 20 mg Oral tablet Take 40 mg by mouth daily. Provider, Historical isosorbide mononitrate SR 24 hour (IMDUR) 60 mg Oral tablet Take 60 mg by mouth daily rn transfer. Provider, Historical loratadine (CLARITIN) 10 mg Oral tablet Take 10 mg by mouth daily. Provider , Historical magnesium oxide 250 mg Oral Tab Take 250 mg by mouth 3 times daily with meals. Provider, Historical phenytoin (DILANTIN) 200 mg Oral Cap Take 200 mg by mouth 2 times daily. Pr ovider, Historical esomeprazole (NEXIUM) 20 mg Oral CpDR Take 20 mg by mouth daily before breakfast . Provider, Historical multivitamin (DAILY-DAVID) Oral tablet Take 1 Tab by mouth daily after lunch. Provider, Historical fenofibrate nanocrystallized (TRICOR) 145 mg Oral tablet Take 145 mg by mouth da maribel. Provider, Historical ezetimibe (ZETIA) 10 mg Oral tablet Take 10 mg by mouth daily at bedtime. P ana laurader, Historical metoprolol succinate ER 24 hour (TOPROL-XL) 25 mg Oral tablet Take 12.5 mg by mo uth daily. Provider, Historical ramipril (ALTACE) 10 mg Oral capsule Take 10 mg by mouth daily with lunch. Provider, Historical simvastatin (ZOCOR) 40 mg Oral tablet Take 40 mg by mouth daily at bedtime. Provider, Historical Past Medical History: Past Medical History: Diagnosis Date Anxiety Arthritis CAD S/P percutaneous coronary angioplasty CHF (congestive heart failure) COPD (chronic obstructive pulmonary disease) Depression GERD (gastroesophageal reflux disease) Hyperlipidemia LDL goal < 70 Hypertension Peripheral vascular disease Surgical History: Past Surgical History: Procedure Laterality Date HX APPENDECTOMY HX CHOLECYSTECTOMY HX CORONARY ARTERY BYPASS GRAFT HX HAMMER TOE REPAIR HX HERNIA INCISIONAL REPAIR HX HERNIA INGUINAL REPAIR HX PTCA Social History: Social History Social History Marital status: Spouse name: N/A Number of children: N/A Years of education: N/A Occupational History Not Employed Social History Main Topics Smoking status: Never Smoker Smokeless tobacco: Not on file Alcohol use No Drug use: No Sexual activity: No Other Topics Concern Service No Blood Transfusions Yes Caffeine Concern No Occupational Exposure No Hobby Hazards No Sleep Concern No Stress Concern Yes Weight Concern Yes Special Diet Yes Back Care No Exercise No Bike Helmet No Seat Belt Yes Self-Exams No Social History Narrative Lives alone with his dog. Has daily chha Does not drive Family History: Family History Problem Relation Age of Onset Heart Failure Mother Hypertension Mother Hypertension Father Stroke Father Review of Systems: As per HPI and PMH Physical Exam: BP 102/54 | Pulse 95 | Temp 97.8 F (36.6 C) (Oral) | Resp 17 | Ht 5' 5" (1.651 m) | Wt 70.3 kg (154 lb 15.7 oz) | SpO2 100% | BMI 25.79 kg/m Weight: 70.3 kg (154 lb 15.7 oz) (09/03/17 1500) No intake or output data in the 24 hours ending 09/03/17 1541 HEENT: atraumatic, normocephalic, PERRL, conjunctivae pale, sclerae nonicteric edentulous Neck: supple. No thyromegaly, JVD or carotid bruits. Chest: is symmetrical, equal air entry, no wheezes or crackles. CVS: Regular rate and rhythm. Normal S1 and S2, no murmurs, gallops or rubs. Abdomen: soft, no tenderness or apparent masses. Extremities: no clubbing, cyanosis. Positive LE edema. Neurological exam: as above Skin is normal without suspicious lesions. Lab results: CBC: Recent Labs 09/03/17 1508 WBC 10.9 HGB 6.4* HCT 20.6* PLT 561* MCV 83.4 Lab Results Component Value Date/Time NA 135 (L) 2017 03:08 PM K 4.7 2017 03:08 PM CL 100 2017 03:08 PM CO2 23 2017 03:08 PM CA 8.1 (L) 2017 03:08 PM BUN 18 2017 03:08 PM CREAT 0.61 (L) 2017 03:08 PM GLUCOSE 214 (H) 2017 03:08 PM TOTALPROTEIN 5.5 (L) 2017 03:08 PM ALBUMIN 2.9 (L) 2017 03:08 PM BILITOTAL 0.3 2017 03:08 PM ALKPHOS 117 2017 03:08 PM AST 20 2017 03:08 PM ALT 15 2017 03:08 PM ANIONGAP 12 2017 03:08 PM Coagulation: No results for input(s): PT, INR, APTT in the last 72 hours. CIE: Lab Results Component Value Date/Time CKMB 2.1 2012 04:23 AM CKMB 2.0 09/02/2012 11:20 PM CKMB 2.8 09/02/2012 03:25 PM TROPONIN I <0.06 2012 04:23 AM TROPONIN I <0.06 09/02/2012 11:20 PM TROPONIN I <0.06 09/02/2012 03:25 PM ABGs: No results for input(s): PHARTERIAL, CZG2LPA, PO2ART, RHW5TDY, BASEEXCESS, SO2, PUNCSITE in the last 72 hours. Most recent radiology results: Out side EKG reviewed IMPRESSION & RECOMMENDATIONS: Patient Active Problem List Diagnosis Code CAD (coronary artery disease) I25.10 Peripheral arterial disease I73.9 Leg edema, left R60.0 Dyspnea, chronic R06.00 COPD (chronic obstructive pulmonary disease) J44.9 Hyperlipidemia with target LDL less than 70 E78.5 Depression F32.9 Shock circulatory R57.9 Acute blood loss anemia D62 Hematuria R31.9 decub ulcer rule out GI bleed PLAN NS bolus Transfuse PRBC Needs central line as on levophed through peripheral line GI and DVT prophylaxis Urine culture Stool hemoccult CT urogram Urology consult. discussed with Dr Tinsley Wound consult discussed with family. He is full code CC time 60 min excluding procedure Timo Jacques MD, [facility] documented in this encounter Consult Notes * Reggie Baumann DO - 09/04/2017 10:22 AM CDT ORTHOPAEDIC CONSULT CONSULTING PHYSICIAN: Reggie Baumann DO PRIMARY CARE PROVIDER: Shahram Mccallum MD (Inactive) NAME: Oliverio Tinsley : 1950 DATE: 09/04/2017 CHIEF COMPLAINT: Syncope at wound care clinic Date of Injury 09/03/17 HPI: Oliverio Tinsley is a 67 y.o. year old male Seen for evaluation of right hi p fracture. Pt has a h/o PMH CAD, HTN, COPD, and presented [facility] out at [facility] clinic. He did not fall. Hgb was 5.6, most recent is 8 .0. Still hypotensive on Levophed. He has been on Plavix and has recently been h aving large hematuria. He had a CT urography, which incidentally showed a greate r troch fracture. We are asked to evaluate. He is scheduled for cystoscopy today . He is not c/o hip pain currently. States that he fell a while ago, but is unsu re of the timeframe. States that he "chipped" the hip and has been allowed to be ar weight without difficulty. FAMILY HISTORY: Family History Problem Relation Age of Onset Heart Failure Mother Hypertension Mother Hypertension Father Stroke Father SURGICAL HISTORY: Past Surgical History: Procedure Laterality Date HX APPENDECTOMY HX CHOLECYSTECTOMY HX CORONARY ARTERY BYPASS GRAFT HX HAMMER TOE REPAIR HX HERNIA INCISIONAL REPAIR HX HERNIA INGUINAL REPAIR HX PTCA SOCIAL HISTORY: Social History Substance Use Topics Smoking status: Never Smoker Smokeless tobacco: Not on file Alcohol use No CURRENT MEDICATIONS: No current facility-administered medications on file prior to encounter. Current Outpatient Prescriptions on File Prior to Encounter Medication Sig Dispense Refill OLANZapine (ZYPREXA) 2.5 mg tablet Take 2.5 [...] nhalation 2 times daily. 12 Gram 1 levofloxacin (LEVAQUIN) 500 mg Oral tablet Take 1 Tab by mouth daily at bedt melvina. 6 Tab 0 albuterol (PROAIR HFA) 90 mcg/Actuation Inhalation HFAA inhaler Take 2 Puffs by inhalation every 4 hours as needed for Shortness of Breath or Wheezing. 6.7 Gram 1 aspirin (AMELIA) 81 mg Oral Tab Take 81 mg by mouth daily with breakfast. zolpidem (AMBIEN) 10 mg Oral tablet Take [...] tablet Take 40 mg by mouth daily. isosorbide mononitrate SR 24 hour (IMDUR) 60 mg Oral tablet Take 60 mg by mo uth daily rn transfer. loratadine (CLARITIN) 10 mg Oral tablet Take [...] Take 12.5 mg b y mouth daily. ramipril (ALTACE) 10 mg Oral capsule Take 10 mg by mouth daily with lunch. simvastatin (ZOCOR) 40 mg Oral tablet Take 40 mg by mouth daily at bedtime. ADVERSE REACTIONS: Allergies Allergen Reactions Doxycycline Rash Phenobarbital Weakness "relaxes me too much" Piperacillin-Tazobactam Hives and Rash Breaks out Terazosin Other (See Comments) Chest heaviness, chest pain Valium [Diazepam] Other (See Comments) "stops breathing, no pulse" Unresponsiveness REVIEW OF SYSTEMS: Pertinent items are noted in HPI. A comprehensive review of systems was negative. CONSTITUTIONAL: Negative. MUSCULOSKELETAL: No hip pain. No pain with weight bearing. No hip pain with ROM . No other bone/joint pain NEURO: Denies hx of stroke, seizure or neuropathy. ENDOCRINE: Denies hx of thyroid disease RESPIRATORY: Denies hx recent pneumonia CARDIOVASCULAR: Denies hx of heart murmur, dysrhythmia GASTROINTESTINAL: Denies hx of frequent heartburn. HEENT: Negative. SKIN: clear no rashes noted IMMUNOLOGICAL: denies recent acute or chronic infections PHYSICAL EXAMINATION: VITAL SIGNS: BP 115/55 | Pulse 93 | Temp 98.8 F (37.1 C) (Oral) | Resp 1 5 | Ht 5' 5" (1.651 m) | Wt 70.3 kg (154 lb 15.7 oz) | SpO2 100% | BMI 25.79 kg/m CONSTITUTIONAL: The patient is a normal appearing male in no apparent distress. Well developed. GENERAL: WNWD, of stated age and in no acute distress. HEENT: Normocephalic, atraumatic with normal facial symmetry. Pupils equal, ro und, extraocular muscles intact bilaterally. Mucosa pink and moist. NECK: No JVD. No goiter. Trachea midline. CARDIAC: Distal pulses intact. No cyanosis, clubbing or edema. CHEST: Regular rate. No accessory muscle usage. No retractions. On ventimask O2 . SKIN: Clear, warm and intact. No rashes. PSYCH: The patient is alert and oriented to person, place and time. Normal affe ct. NEURO: Cranial nerves II-XII grossly intact. Sensation grossly intact. EXTREMITIES: RLE no gross deformity, erythema, warmth, ecchymosis, swelling or e ffusion. No tenderness. No pain with active ROM of hip. Able to do straight leg raise. Sens grossly intact. CR <2s. DP 2/4. RADIOLOGY STUDIES: Ct Urography Result Date: 2017 CT UROGRAPHY HISTORY: Male, 67 years old. Hematuria TECHNIQUE: Computed tomog lokesh of the abdomen and pelvis was performed prior to and following the unevent ful administration of intravenous contrast according a urographic protocol with postcontrast images obtained during nephrographic and excretory phases of enhanc ement. Three dimensional postprocessing was performed by a radiologist on a [employer] 3D workstation. CONTRAST: IOPAMIDOL 61 % INTRAVENOUS SOLUTION Given:100 m L COMPARISON: Chest CTA 2012 Right Kidney: The right kidney measures 11.8 cm pole to pole. There is one renal artery and one renal vein. There are no foca l lesions. No calculi are seen. There is no hydronephrosis. The ureter is norm al. The urothelium appears normal. Left Kidney: The left kidney measures 12.6 c m pole to pole. There is one renal artery and one renal vein. There are no focal lesions. There is a 4 mm calculus in the lower pole (series 2, image 70). There is moderate hydronephrosis and an extrarenal pelvis. On delayed series, there i s filling of the extrarenal pelvis, however there is no opacification of the lef t ureter beyond the ureteropelvic junction. Bladder: The bladder contains a Fo shahida catheter. There are multiple large masses within the bladder measuring up to 7.6 cm in size. There is gas within the urinary bladder. NON-UROGRAPHIC FIND INGS: Mild right lower lobe atelectasis. No pleural or pericardial effusion. The liver appears normal. Mild intrahepatic biliary ductal dilatation, likely relat ed to postcholecystectomy state. Large and small bowel are normal in caliber. No free intraperitoneal fluid. There is a fat-containing left inguinal hernia. A p enile prosthesis is present. There is mild wedging of the L1 inferior endplate. There is an instrumented left proximal femoral fracture. There is a fracture of the right femur greater trochanter. IMPRESSION: 1. Moderate left hydroureteronephrosis extending to the left uretero pelvic junction with nonopacification of the left ureter. Differential considera tions include left ureteropelvic junction obstruction secondary to kink, hematom a or occult urothelial lesion. 2. Large bladder masses, likely hematomas, which could obscure a bladder neoplasm. Recommend repeating examination after resoluti on of acute hemorrhage. 3. Acute fracture of the right femur greater trochanter. Mild wedging of the L1 inferior endplate. 4. Penile prosthesis. 5. Small fat-co ntaining left inguinal hernia. PERTINENT LABORATORY FINDINGS: Results for orders placed or performed during the hospital encounter of 09/03/17 (from the past 24 hour(s)) CBC WITH DIFFERENTIAL Result Value Ref Range WBC 10.9 4.0 - 11.0 K/uL RBC 2.47 (L) 4.70 - 6.00 M/uL HEMOGLOBIN 6.4 (LL) 13.5 - 18.0 g/dL HEMATOCRIT 20.6 (L) 42.0 - 52.0 % MCV 83.4 78.0 - 100.0 fL MCH 25.9 (L) 27.0 - 34.0 pg MCHC 31.1 31.0 - 37.0 g/dL RDW 15.9 (H) 12.0 - 15.0 % RDW-STDEV 48.8 (H) 37.1 - 48.7 fL PLATELETS 561 (H) 150 - 450 K/uL MPV 8.1 (L) 9.3 - 12.4 fL NEUTROPHILS 77 (H) 31 - 76 % LYMPHOCYTES 16 (L) 24 - 44 % MONOCYTES 6 2 - 11 % EOSINOPHILS 0 0 - 6 % BASOPHILS 0 0 - 2 % IMMATURE GRANULOCYTES 1 0 - 2 % NEUTROPHIL ABSOLUTE 8.39 (H) 1.80 - 7.70 K/uL LYMPHOCYTE ABSOLUTE 1.76 1.00 - 4.80 K/uL MONOCYTE ABSOLUTE 0.62 0.10 - 1.30 K/uL EOSINOPHIL ABSOLUTE 0.03 0.00 - 0.70 K/uL BASOPHILS ABSOLUTE 0.01 0.00 - 0.20 K/uL IMMATURE GRANULOCYTES ABSOLUTE 0.09 0.00 - 0.10 K/uL COMPREHENSIVE METABOLIC PANEL Result Value Ref Range SODIUM 135 (L) 136 - 145 mmol/L POTASSIUM 4.7 3.5 - 5.1 mmol/L CHLORIDE 100 98 - 107 mmol/L CO2 23 22 - 29 mmol/L CALCIUM 8.1 (L) 8.8 - 10.2 mg/dL BUN 18 8 - 23 mg/dL CREATININE 0.61 (L) 0.67 - 1.17 mg/dL GLUCOSE 214 (H) 74 - 105 mg/dL TOTAL PROTEIN 5.5 (L) 6.4 - 8.3 g/dL ALBUMIN 2.9 (L) 4.0 - 4.9 g/dL BILIRUBIN TOTAL 0.3 <=1.2 mg/dL ALKALINE PHOSPHATASE 117 40 - 129 U/L AST 20 0 - 40 U/L ALT 15 0 - 41 U/L GFR >60 >=60 mL/min/1.73 sq meter GFR, >60 >=60 mL/min/1.73 sq meter ANION GAP 12 4 - 13 mmol/L LACTIC ACID Result Value Ref Range LACTIC ACID 1.1 0.7 - 2.1 mmol/L PREPARE RED BLOOD CELLS Result Value Ref Range COMPONENT TYPE X2295R17 COMPONENT IDENTIFICATION [id number] UNIT ABO A UNIT RH POS COMPONENT STATUS Transfused COMPONENT EXPIRATION DATE/TIME [id number] COMPONENT CODING SYSTEM 6200 TYPE AND SCREEN Result Value Ref Range ABO GROUP A RH (D) TYPE Positive ANTIBODY SCREEN Negative BLOOD GAS ARTERIAL Result Value Ref Range PH ARTERIAL 7.40 7.38 - 7.46 PCO2 ARTERIAL 36 32 - 46 mm Hg PO2 ARTERIAL 102 74 - 108 mm Hg HCO3 ARTERIAL 22 21 - 29 mmol/L BASE EXCESS ABG -2.4 (L) -2.0 - 2.0 mmol/L HEMOGLOBIN ABG 5.7 (LL) 13.5 - 18.0 g/dL O2 SAT EST ARTERIAL 99 (H) 92 - 98 % OXYGEN MODE Nasal Cannula LITER FLOW 2.0 L/min POC GLUCOSE Result Value Ref Range POC GLUCOSE 181 (H) 70 - 105 mg/dL JEWELRY DESIGNER NAME michael gannon CBC WITH DIFFERENTIAL Result Value Ref Range WBC 9.4 4.0 - 11.0 K/uL RBC 2.53 (L) 4.70 - 6.00 M/uL HEMOGLOBIN 6.6 (LL) 13.5 - 18.0 g/dL HEMATOCRIT 21.4 (L) 42.0 - 52.0 % MCV 84.6 78.0 - 100.0 fL MCH 26.1 (L) 27.0 - 34.0 pg MCHC 30.8 (L) 31.0 - 37.0 g/dL RDW 16.1 (H) 12.0 - 15.0 % RDW-STDEV 49.2 (H) 37.1 - 48.7 fL PLATELETS 613 (H) 150 - 450 K/uL MPV 8.2 (L) 9.3 - 12.4 fL NEUTROPHILS 64 31 - 76 % LYMPHOCYTES 26 24 - 44 % MONOCYTES 9 2 - 11 % EOSINOPHILS 1 0 - 6 % BASOPHILS 0 0 - 2 % IMMATURE GRANULOCYTES 1 0 - 2 % NEUTROPHIL ABSOLUTE 6.02 1.80 - 7.70 K/uL LYMPHOCYTE ABSOLUTE 2.43 1.00 - 4.80 K/uL MONOCYTE ABSOLUTE 0.82 0.10 - 1.30 K/uL EOSINOPHIL ABSOLUTE 0.06 0.00 - 0.70 K/uL BASOPHILS ABSOLUTE 0.01 0.00 - 0.20 K/uL IMMATURE GRANULOCYTES ABSOLUTE 0.06 0.00 - 0.10 K/uL PROTIME-INR Result Value Ref Range PROTIME 16.8 (H) 11.8 - 14.6 Seconds INR 1.4 (H) 0.9 - 1.2 COMPREHENSIVE METABOLIC PANEL Result Value Ref Range SODIUM 133 (L) 136 - 145 mmol/L POTASSIUM 4.5 3.5 - 5.1 mmol/L CHLORIDE 101 98 - 107 mmol/L CO2 22 22 - 29 mmol/L CALCIUM 7.9 (L) 8.8 - 10.2 mg/dL BUN 14 8 - 23 mg/dL CREATININE 0.52 (L) 0.67 - 1.17 mg/dL GLUCOSE 171 (H) 74 - 105 mg/dL TOTAL PROTEIN 5.0 (L) 6.4 - 8.3 g/dL ALBUMIN 2.7 (L) 4.0 - 4.9 g/dL BILIRUBIN TOTAL 0.3 <=1.2 mg/dL ALKALINE PHOSPHATASE 116 40 - 129 U/L AST 48 (H) 0 - 40 U/L ALT 17 0 - 41 U/L GFR >60 >=60 mL/min/1.73 sq meter GFR, >60 >=60 mL/min/1.73 sq meter ANION GAP 10 4 - 13 mmol/L PREPARE RED BLOOD CELLS Result Value Ref Range COMPONENT TYPE X6572S16 COMPONENT IDENTIFICATION [id number] UNIT ABO A UNIT RH POS COMPONENT STATUS Transfused COMPONENT EXPIRATION DATE/TIME COMPONENT CODING SYSTEM 4110 PREPARE FRESH FROZEN PLASMA Result Value Ref Range COMPONENT TYPE [id number] COMPONENT IDENTIFICATION [id number] UNIT ABO A UNIT RH POS COMPONENT STATUS Transfused COMPONENT EXPIRATION DATE/TIME COMPONENT CODING SYSTEM 6200 PREPARE FRESH FROZEN PLASMA Result Value Ref Range COMPONENT TYPE U1652R01 COMPONENT IDENTIFICATION [id number] UNIT ABO A UNIT RH POS COMPONENT STATUS Transfused COMPONENT EXPIRATION DATE/TIME COMPONENT CODING SYSTEM 1082 HEMOGLOBIN AND HEMATOCRIT Result Value Ref Range HEMOGLOBIN 7.9 (L) 13.5 - 18.0 g/dL HEMATOCRIT 25.0 (L) 42.0 - 52.0 % CBC WITH DIFFERENTIAL Result Value Ref Range WBC 8.2 4.0 - 11.0 K/uL RBC 2.93 (L) 4.70 - 6.00 M/uL HEMOGLOBIN 8.0 (L) 13.5 - 18.0 g/dL HEMATOCRIT 24.5 (L) 42.0 - 52.0 % MCV 83.6 78.0 - 100.0 fL MCH 27.3 27.0 - 34.0 pg MCHC 32.7 31.0 - 37.0 g/dL RDW 15.5 (H) 12.0 - 15.0 % RDW-STDEV 47.3 37.1 - 48.7 fL PLATELETS 428 150 - 450 K/uL MPV 7.9 (L) 9.3 - 12.4 fL NEUTROPHILS 71 31 - 76 % LYMPHOCYTES 18 (L) 24 - 44 % MONOCYTES 9 2 - 11 % EOSINOPHILS 1 0 - 6 % BASOPHILS 0 0 - 2 % IMMATURE GRANULOCYTES 1 0 - 2 % NEUTROPHIL ABSOLUTE 5.85 1.80 - 7.70 K/uL LYMPHOCYTE ABSOLUTE 1.49 1.00 - 4.80 K/uL MONOCYTE ABSOLUTE 0.73 0.10 - 1.30 K/uL EOSINOPHIL ABSOLUTE 0.07 0.00 - 0.70 K/uL BASOPHILS ABSOLUTE 0.02 0.00 - 0.20 K/uL IMMATURE GRANULOCYTES ABSOLUTE 0.05 0.00 - 0.10 K/uL BASIC METABOLIC PANEL Result Value Ref Range SODIUM 137 136 - 145 mmol/L POTASSIUM 4.1 3.5 - 5.1 mmol/L CHLORIDE 102 98 - 107 mmol/L CO2 22 22 - 29 mmol/L CALCIUM 8.4 (L) 8.8 - 10.2 mg/dL BUN 11 8 - 23 mg/dL CREATININE 0.53 (L) 0.67 - 1.17 mg/dL GLUCOSE 171 (H) 74 - 105 mg/dL GFR >60 >=60 mL/min/1.73 sq meter GFR, >60 >=60 mL/min/1.73 sq meter ANION GAP 13 4 - 13 mmol/L PROTIME-INR Result Value Ref Range PROTIME 17.3 (H) 11.8 - 14.6 Seconds INR 1.4 (H) 0.9 - 1.2 POC GLUCOSE Result Value Ref Range POC GLUCOSE 199 (H) 70 - 105 mg/dL JEWELRY DESIGNER NAME luiza cook URINALYSIS WITH REFLEX CULTURE Result Value Ref Range COLOR UA Red (A) Pale to dark yellow CLARITY UA Cloudy (A) Clear SPECIFIC GRAVITY UA 1.020 1.003 - 1.035 PH UA 8.0 5.0 - 8.0 LEUKOCYTE ESTERASE UA 1+ (A) Negative NITRITE UA Negative Negative PROTEIN UA 2+ (A) Negative GLUCOSE UA Negative Negative KETONES UA Negative Negative, Invalid Result UROBILINOGEN UA 0.2 <2.0 mg/dL BILIRUBIN UA Negative Negative BLOOD UA 3+ (A) Negative WBC UA >100 (A) 0 - 2 /hpf RBC UA >100 (A) 0 - 2 /hpf BACTERIA UA 2+ (A) Negative /hpf IMPRESSION: Right hip greater trochanter fracture, subacute No hip pain with WB/ambulation Old left hip fracture s/p intremedullary hip screw PLAN: Nonop treatment Continue WBAT Continue PT as tolerated Reggie Baumann DO * Walter Tinsley MD - 2017 9:43 PM CDT [facility] [place] [address] NAME: OLIVERIO TINSLEY CSN: [id number] : 1950 PHYSICIAN: Pawan Tinsley MD ADMISSION DATE: 2017 CONSULTATION DATE: 2017 REFERRING PHYSICIAN: Timo Jacques MD, [facility] CHIEF COMPLAINT: Gross hematuria. HISTORY OF PRESENT ILLNESS: Mr. Tinsley is a 67-year-old gentleman who has a histo ry of brain injury and is a poor historian. However, he is alert and oriented, and he reports 4 days of gross hematuria. He is unable to find any other signif icant history. He has a history of chronic anticoagulation and was recently michael gnosed with a urinary tract infection. He has a sacral decubitus and [facility] where [facility]. He was noted to be in shock with a hemoglob in of 5.6, INR 1.2. He received a fluid bolus and was transferred to [facility]. He has been admitted to ICU for further evaluation. He denies any previous similar episodes. He denies any history of prostate canc er. He has a history of penile prosthesis. PAST MEDICAL HISTORY: Anxiety, arthritis, coronary artery disease, congestive h eart failure, COPD, depression, gastroesophageal reflux disease, hyperlipidemia, hypertension, and peripheral vascular disease. PREVIOUS SURGERIES: Include penile prosthesis, also appendectomy, cholecystecto my, coronary artery bypass grafting, hernia incision repair, and PTCA. SOCIAL HISTORY: He is . His sister assists in his medical care. No his tory of smoking at any point. No recreational drug use. He is retired. He talib es alone with his dog. He has a daily chha and does not drive. FAMILY HISTORY: Otherwise noncontributory. Please see Dr. Jacques's H and P from 2017. REVIEW OF SYSTEMS: Otherwise, noncontributory and please see the H and P and transfer evaluation no mann from [place]. PHYSICAL EXAMINATION: VITAL SIGNS: Blood pressure 102/54, pulse 95, temp 97.7, and respirations 17. Weight 70.3 kg. Height 5 feet 5 inches. GENERAL: He is alert and oriented to person, time, place, and circumstance. He seems somewhat confused when asking about his history. Otherwise, he cleared r apidly. HEENT: Ears, nose without masses, rashes, or lesions. Normal-appearing sclerae . Normal-appearing conjunctiva. Moist oral mucosa. Normal-appearing lips and gums. He is edentulous. NECK: Without cervical lymphadenopathy. Trachea is midline. CHEST: Without dullness to percussion. No use of accessory muscles for respira tion. No dullness to percussion. Normal-appearing skin about his abdomen, back , and extremities. ABDOMEN: Soft, nontender, nondistended. No suprapubic tenderness or distention . No ecchymosis or discoloration. No rebound or guarding. : Normal-appearing phallus with normal meatus and normal-appearing scrotum. Palpably normal testes, epididymis, and vas deferens bilaterally. There is a se mirigid penile prosthesis present in the penis. EXTREMITIES: Good range of motion in the upper extremities. Gait is not assess ed. PSYCH: He has appropriate mood and affect. SKIN: Normal-appearing skin of his abdomen, back, and extremities. Sacral decu bitus wound dressing is over his sacrum. RECTAL: Digital rectal exam completed. Normal-appearing perineum and anus with good sphincter tone. No rectal masses detected. Stool guaiac is not indicated . Seminal vesicles not palpable. Prostate is approximately 20 g roughly. Ortiz mejia, the fossa is generally flat. No induration or fluctuance. No bogginess or tenderness. : 16-Irish silastic Ulloa catheter with reddish colored urine that seems to b e draining well. LABORATORY STUDIES: Serum white count 10.9 thousand, hemoglobin is 6.4, platele ts 561,000, hematocrit 20.6, serum creatinine 0.61, protein 5.5, albumin 2.9, so dium 135. CT scan is reviewed. There is moderate pelviectasis and no evidence of ureterec tasis, a nonobstructing left renal stone, and a very large bladder with evidence of a mass consistent with hematoma versus neoplasm. OVERALL IMPRESSION: 1. Gross hematuria. 2. Hypotension and anemia. It appears it would be suspicious for blood loss sec ondary to gross hematuria and clot in his bladder. 3. Chronic anticoagulation, indications unclear. 4. Possible recent urinary tract infection. 5. Nonobstructing renal stone. 6. Hydronephrosis mentioned without hydroureter. This could possibly represent ureteropelvic junction obstruction. There is nonfilling in the proximal ureter, noted to be suspicious for possible neoplasm. However, there is no evidence of any filling defect or substantial mass effect within the ureter. 7. Coronary artery disease. 8. Dyspnea, chronic obstructive pulmonary disease, hypertension. 9. Erectile dysfunction managed with penile prosthesis. RECOMMENDATIONS: 1. He is currently in no distress and continues to have significant improved hyp otension and improved anemia following transfusion. 2. As long as urine is draining well, no alternative intervention should be unde rtaken. However, if he goes into clot retention overnight, he should have his F oley catheter replaced with a 24-Irish Ulloa, manually irrigate until clear if possible, and initiate slow CBI. 3. Recommend proceeding to the operating room for cystoscopy, clot evacuation, a nd bilateral retrograde pyelograms. This should also be helpful in identifying any potential etiologies. It is possible he could have had a hemorrhagic cystit is in the setting of chronic anticoagulation with Plavix, and this could have le d to his substantial hematuria. 4. We discussed the details of the procedure, as well as risks, possible complic ations, and alternatives. With a history of penile prosthesis, he has an increa sed risk of injury to his penile prosthesis and possible development of infection or erosion. 5. No intervention indicated for his renal calculus. Pawan Tinsley MD PRIMITIVO/medq VOICE JOB ID: [id number] DOCUMENT ID: [id number] cc: MD Pawan Doyle MD * Walter Tinsley MD - 2017 7:45 PM CDT Patient seen and examined. Chart and films reviewed. Full note dictated. Gross hematuria x 4 days with large volume clot retention.Etiology unclear. He i s on Plavix and has a UTI treated a few days ago. He has substantial anemia any hypotension. His Ulloa is draining well at this point and large volume of clot i n his bladder. Recommend proceeding to OR for cystoscopy, clot evacuation and bilateral retrogr barbara pyelograms in AM. Details of the planned procedure discussed as well as risk s, possible complications and alternatives. documented in this encounter OR Notes * Brief Op Note - Walter Tinsley MD - 09/04/2017 6:48 PM CDT Brief Postoperative Note Oliverio Cid Sha [id number] Pre-operative Diagnosis: Blood clot in bladder Post-Op Diagnosis: * No post-op diagnosis entered * Procedure(s) and Anesthesia Type: * CYSTOSCOPY WITH CLOT EVACUATION BLADDER - General * PYELOGRAM RETROGRADE BILATERAL - General Surgeon(s) and Role: * Walter Tinsley MD - Primary Additional CPT Codes: *No additional CPT codes listed in log* Procedure Start: 1699 Procedure End: 1811 Findings: 400+mL mature clot in his bladder. No definite source of bleeding miller ntified. Bilateral retrogrades without significant pathology identified. Bladde r biopsy taken. Specimens: ID Type Source Tests Collected by Time Destination A : BLADDER LORAINE Tissue Bladder PATHOLOGY Walter Tinsley MD 09/04/2017 18 24 Implants: * No implants in log * Estimated Blood Loss: No blood loss documented. Walter Tinsley MD * Operative Report - Walter Tinsley MD - 09/04/2017 6:43 PM CDT [facility] [place] [address] NAME: OLIVERIO TINSLEY CSN: [id number] : 1950 ADMISSION DATE: 2017 OPERATIVE REPORT DATE: 09/04/2017 SURGEON: Pawan Tinsley MD PREOPERATIVE DIAGNOSIS: Gross hematuria with clot retention. POSTOPERATIVE DIAGNOSIS: Gross hematuria with clot retention. OPERATIVE PROCEDURE: Cystourethroscopy with clot evacuation, bladder biopsy, an d bilateral retrograde pyelograms. ANESTHETIC: General. INDICATIONS FOR PROCEDURE: Mr. Tinsley is a gentleman who presented with gross hem aturia and clot retention. CT scan revealed large bladder full of material, nathan pect may be clot. After reviewing the options for management, he now presents f or clot evacuation, further evaluation, and bilateral retrograde pyelograms. De tails of procedure were discussed as well as risks, possible complications, and alternatives. DESCRIPTION OF PROCEDURE: After obtaining informed consent, he was [facility], placed on the operative table in supine position. After esta blishing adequate anesthesia, he was replaced in the dorsal lithotomy position. His perineum and genitalia were prepped and draped in the usual sterile fashion . Cystourethroscopy was undertaken. Normal-appearing distal and proximal ureth ra. Upon entering his prostatic urethra he had evidence of prostate that appear ed to be more wide open than usual with changes consistent with old prostate tra nsurethral resection. No definite evidence of bleeding. Upon entering his blad fatuma, it was completely obscured initially by a large volume of clot. With a com bination of the Ellik general office clerk and piston syringe and dogged effort, I was able to slowly but eventually successfully completely clear the bladder of all clots . There was approximately 400-500 mL of clot. Old dark gelatinous clot was miller ntified and retrieved. This took nearly an hour of our work on this portion zelda ne. At the conclusion, his bladder was completely cleared. The bladder was ins pected. Moderate trabeculation noted. No stones, tumors, foreign bodies, or di verticula noted. There was some erythema and slight bleeding at the bladder nec k, consistent with the location of the scope. Given the circumstances, I took 2 cold cup biopsies from the bladder floor and bladder neck area where the bleedi ng occurred with some inflammation. Electrocautery utilized with a Bugbee elect rode to provide hemostasis. At the conclusion of the procedure, there was excel lent hemostasis. A 24-Irish Ulloa catheter was placed and started with trickle of continuous bladder irrigation that is clear upon leaving the operating room. I used a 5-Irish open-tipped ureteral catheter and performed bilateral retrogra de pyelograms. On the right side, slightly lateral appearance to the distal ure ter and some distortion of the pelvis. However, the remainder of the ureter had an overall normal appearance and normal dermatotically appearing pelvis and donovan ices. The left side generally is normal with multiple areas of narrowing. Ortiz mejia, given the appearance, it appeared to be somewhat more torturous ureter and the narrowing with slight kinks at the areas of turns, with no filling defects. No masses appreciated. When the ureteral catheter was removed, the ureter drai tessy promptly and renal pelvis eventually drained fairly quickly as well. Given the circumstances, stenting was not indicated. SPECIMEN: Two bladder biopsies sent for routine analysis. COMPLICATIONS: None. ESTIMATED BLOOD LOSS: For the procedure none specifically, but old clot retriev ed and its between 400 and 500 mL. Pawan Tinsley MD PRIMITIVO/medq VOICE JOB ID: [id number] DOCUMENT ID: [id number] cc: Pawan Tinsley MD * Operative Report - Timo Jacques MD - 2017 5:06 PM CDT Oliverio Cid Sha 67 y.o. male [id number] PROCEDURE: Central Line Placement INDICATION: Shock/ Respiratory Failure DESCRIPTION OF PROCEDURE: The right side of the neck and chest was sterile prepa red and draped in the usual fashion. 1% lidocaine was used to anaesthesize skin and subcutaneous tissue. The patient was placed in the Trendelenburg position. T he real time ultrasound guidance was used to locate the right internal jugular v ein. It collapsed with the pressure of the probe. Under the real time ultrasound guidance the vein was cannulated. The guide wire was passed. After giving a small incision with the scalpel, the dilator was passed over the guide wire. Finally the triple lumen catheter was passed over the guide wire. Th e guide wire was removed. The free flow of the venous return was confirmed from all the ports which were flushed with normal saline. The triple lumen catheter w as sutured in place and covered with sterile dressing. The patient tolerated the procedure well, without any complications. Post procedure CXR will be checked. SURGEON: Timo Jacques MD 2017 5:06 PM documented in this encounter Miscellaneous Notes * Care Plan - Dilan Schaeffer, Community Education Specialist - 09/06/2017 11:15 AM CDT Problem: Physical Mobility, Impaired Goal: Mobility goal: Improve transfer ability by discharge Patient will transfer supine <> sit with modified independence. Outcome: Deactivate Date Met: 09/06/17 Goal: Mobility goal: Improve transfer ability by discharge Patient will transfer bed to/from chair with modified independence. Outcome: Progressing Goal: Mobility goal: Improve ambulation by discharge Patient will ambulate 150 feet on level surface, using rolling walker assistive device, with supervision so patient can navigate discharge environment. Outcome: Progressing [facility] Acute Therapy Services Main: Acute: For questions regarding this patient's status or care, please call [phone]. Acute Physical Therapy Treatment 09/06/2017 Room: [facility] Name: Oliverio Tinsley Age: 67 y.o. Date of : 1950 Insurance: Payor: [employer] / Plan: [employer] [facility] MCR / Product Type: Medicare Capitation / PT Treatment Minutes Therapy Start Time: 0839 (09/06/17838) Therapy Stop Time: 0902 (09/06/17838) Total Timed Treatment (min): 23 (09/06/17838) Total Treatment Time (min): 23 (09/06/17838) Confirmed patient's identification of name and date of : on name band, by patient report Consent to treatment given by patient and nurse with results as follows: Physical Therapy Assessment Patient is progressing towards care plan goals. Patients functional mobility continues to be limited by decreased activity tolerance, decreased strength, gait disturbance and risk for falls. Continue with plan of care as patient does require skilled PT to address fun ctional deficits. Plan for subsequent sessions includes functional transfer training and gait training Therapy Frequency: Will follow 6 times per week, daily Pt moves supine to sit with supervision, VCs for sequence. Pt gait trains with F WW, mod A for walker management, VCs for posture, walker proximity. Pt instructe d in safe sit < > stands from bed, WC, using UEs for support, also backing to seated surface prior to sitting. Pt left in WC for transport by nurse. Precautions Patient precautions: DVT and fall precautions Weight Bearing: no restriction Other pertinent findings: IV Recommendations Discharge Recommendation: Home with 24-hour assistance and home health physic al therapy pending medical course and based on patient's safety with His current level of functional mobility. Equipment recommended at discharge: rolling walker At this time, patient requires additional training. Subjective Information Provided by: patient. Cooperative, motivated. Pain: Refer to Doc Flowsheet for documented pain levels. Mobility Training Functional Mobility ( Therapeutic Activity 39926) Rolling: independent Scooting: independent Supine to sit: independent Sit to supine: did not perform Sit to stand: supervision Bed to chair: minimal assistance Gait Trainin 60 feet with rolling walker, with minimal assistance f or walker management. Patient required verbal cues for bilateral UE push-up for sit to stand, for a ssistive device placement with regards to feet/trunk, for proper posture and to use safe techniques and posture during ADLS and functional transfers. Balance/Safety: Therapeutic Activity 92456 : Safe sit < > stands/ UE support. Vitals: Patient on room air Education Method: demonstration and verbal Provided to: patient Regarding safe sit < > stands from various seats. Response to learning: will need further training in formal therapy sessions a nd verbalizes understanding Disposition Before treatment session: Patient found lying in bed. After treatment session: Patient left In WC for transport. Prior to PT session a thorough chart review was completed, including prior erapy notes, as applicable. Further treatment notes and therapeutic goals can be found in Care Plan Notes . Thank you for this referral, Dilan Schaeffer Community Education Specialist Problem: Impaired Motor Skills Goal: Motor skills goal: Improve motor skills by discharge Patient will display increased strength as evidenced by increased reps, resistan ce, or manual muscle test scores. Outcome: Progressing Electronically signed by Dilan Schaeffer, Community Education Specialist at 1 11:15 AM CDT * Care Plan - Kale Pinedo RN - 09/06/2017 3:33 AM CDT INTERDIS PW: SKIN/PRESSURE INJURY PREVENTION Pathway Day [...] loading techniques or patient moves independently. Met [facility] Pathway: Adult and Obstetrics Day 1 Patient, family, or healthcare designee is participating in individual car e plan process Met Patient, family, or healthcare designee understands side effects of medica tions Met Cardiovascular Achieve optimal cardiovascular function by discharge or maintain baseline fu nction Progressing Cognitive/Perceptual/Neuro Achieve optimal cognitive/perceptual/neurological function by discharge or m aintain baseline function Progressing Coping (Adult) Demonstrates effective coping mechanisms and psychosocial functioning throug hout hospitalization Progressing Discharge Planning Identify discharge needs upon admission and through discharge Progressing Gastrointestinal Achieve optimal gastrointestinal function by discharge or maintain baseline function Progressing Genitourinary/Renal Achieve optimal genitourinary and renal function by discharge or maintain ba seline function Progressing Impaired Motor Skills Motor skills goal: Improve motor skills by discharge Progressing Infection Risk/Actual Infection Risk/Actual: Infection prevention, control, or resolution by disch arge Progressing Musculoskeletal Achieve optimal musculoskeletal function by discharge or maintain baseline f unction Progressing Nutrition/Endocrine Achieve optimal nutrition and fluid status to meet metabolic needs throughou t hospitalization Progressing Pain, Potential/Actual Verbalizes/displays acceptable comfort level or baseline comfort level Progr essing Peripheral Neurovascular Achieve optimal peripheral neurovascular function by discharge or maintain b aseline function Progressing Physical Mobility, Impaired Mobility goal: Improve transfer ability by discharge Progressing Mobility goal: Improve transfer ability by discharge Progressing Mobility goal: Improve ambulation by discharge Progressing Respiratory Achieve optimal respiratory function by discharge and/or maintain baseline f unction Progressing Safety/Fall Safety/Fall: Absence of fall, injury, harm during hospitalization Omar aaron Skin Maintain skin integrity and/or promote wound healing by discharge Omar aaron * Therapy Evaluation - Allegra Barnard, Physical Therapist - 09/05/2017 10:26 AM CDT [facility] Acute Therapy Services Main: Acute: Acute Physical Therapy Evaluation 09/05/2017 (Evaluation CPT Code--44256) Room: [facility] Name: Oliverio Tinsley Age: 67 y.o. Date of : 1950 Insurance: Payor: MEDICARE / Plan: MEDICARE PART A AND B / Product Type: Medicare / Patient Class: Inpatient Confirmed patient's identification of name and date of : on name band, by patient report Consent to treatment given by patient and nurse with results as follows: Onset of illness/injury or date of surgery: 2017 PT Evaluation Time PT Evaluation Start Time: 1000 (09/05/17 1000) PT Evaluation Stop Time: 1025 (09/05/17 1000) PT Evaluation Total Minutes: 25 (09/05/17 1000) Subjective Information Provided by: patient. Pt pleasant and willing to participate stating he hasn' t been out of bed since admission. Pt states he usually sleeps in a recliner or couch and reported feeling better after evaluation completed. Patient/Family Goals Statement: Return home; doesn't want to go to a SNF/NH Prior level of function was modified independent with rolling walker assistiv e device. Patient has caregiver who is able to assist in home environment 24-hr s. Pt states he is rarely left alone. He has home health 7 days/week. Patient does have a history of falls. Home environment: [facility]Story home and Ramped. Pain: Refer to Doc Flowsheet for documented pain levels. Denies pain Objective Upper Extremity Function: Defer to OT. Lower Extremity Function: Left: ROM: WFL Strength: mildly decreased, 4/5 Right: ROM: WFL Strength: mildly decreased, 4/5 Muscle Tone: normal Coordination: mildly impaired Sensation: WNL Vitals: Patient on room air At Rest: HR: 92 bpm O2 Sat: 99% BP: 118/64 mmHg During/After: HR: 112 bpm activity O2 Sat: 99% BP: 139/73 mmHg [facility] PT Acute Care Functional Outcomes Tool 7 = Ind, 6 = Mod I, 5 = Sup, 4 = Min A, 3 = Mod A, 2 = Max A, 1 = Total A, 0 = N/A Level of Assist (see cedeno above) 1. Bed Mobility: Lying down to sitting on EOB Comments: Assist with trunk and HOB elevated 4 2. Transfers: Bed to Chair (Including sit to/from stand) Comments: cues for hand placement and pushing up from surface 5 3. Gait: Walking on Level Surfaces Comments/Deviations: rolling walker, shortened step length yefri and decreased eli p height, increased shakiness, CGA for safety, narrow ERNESTINA 4 4. Walking Distance: 50 feet Comments: increased fatigue Stair: 0 Comments: n/a 3 7= 201+ ft, 6= 151-200ft, 5= 101-150ft, 4= 51-100ft, 3= 31-50ft, 2= 11-30ft, 1= 1-10ft Patient required cues and education for use of equipment, for bilateral UE pu sh-up for sit to stand, to get COG over ERNESTINA, for assistive device placement with regards to feet/trunk, for proper posture and to use safe techniques and postur e during ADLS and functional transfers. Safety Awareness Patient is oriented to Person, Place and Situation and demonstrates Good abil ity to follow commands. Safety Awareness: good Balance Sitting :supervision Standing: minimal assistance / CGA using rolling walker Assessment Therapeutic Diagnosis: Oliverio Tinsley is a 67 y.o. male referred for physica l therapy. Patient presents with and would benefit from skilled physical therap y to address balance deficits, decreased activity tolerance, decreased strength, gait disturbance, history of frequent falls at home, medical complexity, pain a nd risk for falls. Rehabilitation Potential: Good Participation level: Good Pt admitted with blood clot in bladder s/p cystoscopy with clot evacuation . Pt presents with decreased activity tolerance and generalized weakness re quiring increased assistance for transfers and gait using rolling walker. Pt lana guzman has 24-hour care/assistance and home and very motivated to return as he h as had bad experiences at previous SNF. Pt would benefit from continued skilled PT services to improve overall activity tolerance and strength in order to maxim ize his independence and safety. Discharge Recommendation Anticipated discharge disposition: Home with 24-hour assistance and home heal th physical therapy Equipment needed at discharge: rolling walker Recommendations for referral to another service: onsite case manager/care coordinato r and occupational therapy Precautions Weight Bearing: no restriction Patient precautions: fall precautions Plan Of Care Therapy Frequency: Will follow 6 times per week, Daily Plan will include but is not limited to balance training, equipment training, functional transfer training, gait training, home safety instruction, patient/f amily education and strengthening exercises Discussed PT plan of care with the patient, who is in agreement, and also wit h their RN Education Method: verbal Provided to: patient Regarding: PT Plan of care. Response to learning: will need further training in formal therapy sessions a nd verbalizes understanding Disposition Before treatment session: Patient found: lying in bed. After treatment session: Patient left: seated in chair with call light within reach; chair alarm in place Current Diagnoses Patient Active Problem List Diagnosis Code Chest pain, chronic R07.9 CAD (coronary artery disease) I25.10 Peripheral arterial disease I73.9 Leg edema, left R60.0 Dyspnea, chronic R06.00 COPD (chronic obstructive pulmonary disease) J44.9 Hypertension I10 Hyperlipidemia with target LDL less than 70 E78.5 Depression F32.9 Acute blood loss anemia D62 Hematuria R31.9 Greater trochanter fracture S72.113A Past Medical History has a past medical history of Anxiety; Arthritis; CAD S/P percutaneous coronary angioplasty; CHF (congestive heart failure); COPD (chronic obstructive pulmonar y disease); Depression; GERD (gastroesophageal reflux disease); Hyperlipidemia L DL goal < 70; Hypertension; and Peripheral vascular disease. Prior to PT session a thorough chart review was completed including prior PT notes as applicable. Further treatment notes and therapeutic goals can be found in Care Plan Notes . Thank you for this referral, Allegra Barnard, Physical Therapist [phone] 4: 50 PM CDT * Care Plan - Michael Gannon RN - 09/05/2017 5:27 AM CDT Vitals continually monitored, pain controlled. Bladder irrigation continued and color achieved. * Care Plan - Emily Amaral RN - 09/04/2017 5:44 PM CDT Patient remains stable and progressing this shift. Family updated to patient sta tus. All questions answered. Bed alarm active. Call light in reach. * Care Plan - Alexandra Go RN - 09/04/2017 3:21 PM CDT Problem: Discharge Planning Goal: Identify discharge needs upon admission and through discharge Outcome: Progressing Initial Discharge Planning Assessment completed. Care Management visited with patient, and discussed Care Management role and dis charge planning. Prior to admission, patient's functional level was independent . Prior to admission, patient resided at home alone. Next of kin/contact verified as sister, Hellen Balderrama, contact number . PCP verified as Claus Couch, Urologist: Dr. Baum, Cardiology-Dr. Oocnnor. Patient's insurance verified as Medicare/[place] medicaid. Patient has prescription coverage: yes Equipment in home of: walker, wheelchair, cane. Discussed discharge goals and possible discharge needs. Transportation on discharge : one of his sisters. Comments: Plans to return home on discharge and resume [facility] in [place], [place]. Care Management will continue to follow and assist as needed. Alexandra Go RN, BSN,[facility], [place] [phone] (ext. [phone]) * Therapy Evaluation - Hayley Mandujano, Physical Therapist - 09/04/2017 9:05 AM CDT Per nurse patient is finally resting and had a bad night and morning. Pt is on h old at this time and will check back on 09/05. Recent right hip fracture found a nd will need ortho consult as well before PT is able to get patient out of bed. Hayley Mandujano, PT A M CDT * Care Plan - Michael Gannon RN - 09/04/2017 7:26 AM CDT Vitals continually monitored, paying close attention to BP. After an episode of potential "bladder spasm" causing the pt to be in excruciating pain, vitals stab ilized once second unit of RBC and 2 units of FP were administered. Pt to have p rocedure to clear out blood clots in bladder today. * Care Plan - Emily Amaral RN - 2017 6:24 PM CDT Patient remains stable and progressing this shift. Continued hematuria. 5L ns re ceived. [address] abd/pelvis with/without contrast. Family at bedside, updated to patient status. All questions answered. Bed alarm active. Call light in reach. documented in this encounter Plan of Treatment Not on filedocumented as of this encounter Procedures Comments Procedure Name Priority Date/Time Associated Diag nosis PROCEDURE PHOTOGRAPHS 09/24/2017 10:20 AM DIAL SCREW ASSEMBLER TELEMETRY REPORT 09/08/2017 3:12 PM CDT CBC WITH DIFFERENTIAL Routine 09/06/2017 5:41 AM CDT BASIC METABOLIC PANEL Routine 09/06/2017 5:41 AM CDT HEMOGLOBIN AND HEMATOCRIT Routine 09/06/2017 12:27 AM CDT HEMOGLOBIN AND HEMATOCRIT Routine 09/05/2017 6:51 PM CDT POC GLUCOSE Routine 09/05/2017 4:23 PM CDT HEMOGLOBIN AND HEMATOCRIT Routine 09/05/2017 12:09 PM CDT POC GLUCOSE Routine 09/05/2017 11:32 AM CDT POC GLUCOSE Routine 09/05/2017 8:19 AM CDT POC GLUCOSE Routine 09/05/2017 4:12 AM CDT CBC WITH DIFFERENTIAL Routine 09/05/2017 4:04 AM CDT BASIC METABOLIC PANEL Routine 09/05/2017 4:04 AM CDT HEMOGLOBIN AND HEMATOCRIT Routine 09/05/2017 12:27 AM CDT POC GLUCOSE Routine 09/04/2017 11:56 PM CDT POC GLUCOSE Routine 09/04/2017 8:27 PM CDT HEMOGLOBIN AND HEMATOCRIT Routine 09/04/2017 8:27 PM CDT POC GLUCOSE Routine 09/04/2017 8:03 PM CDT XR FLUORO LESS THAN 1 Routine 09/04/2017 HOUR 6:36 PM CDT PATHOLOGY Pathology 09/04/2017 Blood clot in b ladder 6:24 PM CDT BLADDER BIOPSY 09/04/2017 Blood clot in bladd er 4:26 PM CDT PYELOGRAM RETROGRADE 09/04/2017 Blood clot in bl adder 4:26 PM CDT CYSTOSCOPY 09/04/2017 Blood clot in bladd er 4:26 PM CDT POC GLUCOSE Routine 09/04/2017 4:09 PM CDT HEMOGLOBIN AND HEMATOCRIT Routine 09/04/2017 12:02 PM CDT POC GLUCOSE Routine 09/04/2017 12:00 PM CDT URINALYSIS WITH REFLEX Routine 09/04/2017 CULTURE 9:08 AM CDT URINE CULTURE Routine 09/04/2017 9:08 AM CDT POC GLUCOSE Routine 09/04/2017 7:42 AM CDT MA ELECTROCARDIOGRAM, Routine 09/04/2017 COMPLETE 7:25 AM CDT PROTIME-INR Stat 09/04/2017 5:26 AM CDT CBC WITH DIFFERENTIAL Routine 09/04/2017 4:49 AM CDT BASIC METABOLIC PANEL Routine 09/04/2017 4:49 AM CDT TRANSFUSE FROZEN PLASMA Stat 09/04/2017 1:58 AM CDT TRANSFUSE FROZEN PLASMA Stat 09/04/2017 1:28 AM CDT HEMOGLOBIN AND HEMATOCRIT Routine 09/04/2017 12:54 AM CDT PREPARE FRESH FROZEN Routine 2017 PLASMA 11:36 PM CDT PREPARE FRESH FROZEN Stat 2017 PLASMA 11:36 PM CDT PREPARE RED BLOOD CELLS Routine 2017 9:31 PM CDT CBC WITH DIFFERENTIAL Routine 2017 7:53 PM CDT PROTIME-INR Routine 2017 7:53 PM CDT COMPREHENSIVE METABOLIC Routine 2017 PANEL 7:53 PM CDT POC GLUCOSE Routine 2017 7:[address] UROGRAPHY Routine 2017 6:31 PM CDT BLOOD GAS ARTERIAL Routine 2017 5:21 PM CDT XR CHEST PA OR AP 1 VW Stat 2017 5:11 PM CDT TYPE AND SCREEN Routine 2017 4:34 PM CDT PREPARE RED BLOOD CELLS Routine 2017 4:19 PM CDT LACTIC ACID Stat 2017 3:08 PM CDT CBC WITH DIFFERENTIAL Routine 2017 3:08 PM CDT COMPREHENSIVE METABOLIC Routine 2017 PANEL 3:08 PM CDT documented in this encounter Results * TELEMETRY REPORT (09/08/2017 3:12 PM CDT) Narrative Performed At This result has an attachment that is n ot available. * BASIC METABOLIC PANEL (09/06/2017 5:41 AM CDT) SODIUM 136 136 - 145 mmol/L [facility] [place] POTASSIUM 3.7 3.5 - 5.1 mmol/L [facility] [place] CHLORIDE 99 98 - 107 mmol/L [facility] [place] CO2 23 22 - 29 mmol/L [facility] [place] CALCIUM 8.1 (L) 8.8 - 10.2 mg/dL [facility] [place] BUN 4 (L) 8 - 23 mg/dL [facility] [place] CREATININE 0.44 (L) 0.67 - 1.17 mg/dL [facility] [place] GLUCOSE 143 (H) 74 - 105 mg/dL [facility] [place] GFR [...] result. GFR, >60 >=60 mL/min/1.73 sq [facility] [place] ANION GAP 14 (H) 4 - 13 mmol/L [facility] [place] Specimen Blood Performing Organization Address City/State/Zipcode Ph one Number [facility] CLIA # [id number] [place] [phone] - [place] [address] [facility] CLIA # [id number] [place] [address] - [place] [address] [facility] * CBC WITH DIFFERENTIAL (09/06/2017 5:41 AM CDT) WBC 7.3 4.0 - 11.0 K/uL [facility] [place] RBC 2.78 (L) 4.70 - 6.00 M/uL [facility] [place] HEMOGLOBIN 7.4 (L) 13.5 - 18.0 g/dL [facility] [place] HEMATOCRIT 24.0 (L) 42.0 - 52.0 % [facility] [place] MCV 86.3 78.0 - 100.0 fL [facility] [place] MCH 26.6 (L) 27.0 - 34.0 pg [facility] [place] MCHC 30.8 (L) 31.0 - 37.0 g/dL [facility] [place] RDW 16.7 (H) 12.0 - 15.0 % [facility] [place] RDW-STDEV 52.2 (H) 37.1 - 48.7 fL [facility] [place] PLATELETS 433 150 - 450 K/uL [facility] [place] MPV 8.1 (L) 9.3 - 12.4 fL [facility] [place] NEUTROPHILS 71 31 - 76 % [facility] [place] LYMPHOCYTES 18 (L) 24 - 44 % [facility] [place] MONOCYTES 10 2 - 11 % [facility] [place] EOSINOPHILS 0 0 - 6 % [facility] [place] BASOPHILS 0 0 - 2 % [facility] [place] IMMATURE 1 0 - 2 % [facility] [place] NEUTROPHIL 5.16 1.80 - 7.70 K/uL [facility] [place] LYMPHOCYTE 1.30 1.00 - 4.80 K/uL [facility] [place] MONOCYTE 0.72 0.10 - 1.30 K/uL [facility] [place] EOSINOPHIL 0.02 0.00 - 0.70 K/uL [facility] [place] BASOPHILS 0.01 0.00 - 0.20 K/uL [facility] [place] IMMATURE 0.04 0.00 - 0.10 K/uL [facility] [place] Specimen Blood Performing Organization Address City/State/Zipcode Ph one Number [facility] CLIA # [id number] [place] [id number] - [place] [address] [facility] CLIA # [id number] [place] [address] - [place] [address] [facility] [employer] * HEMOGLOBIN AND HEMATOCRIT (09/06/2017 12:27 AM CDT) HEMOGLOBIN 7.3 (L) 13.5 - 18.0 g/dL [facility] [employer] [facility] [place] HEMATOCRIT 23.1 (L) 42.0 - 52.0 % [facility] [place] Specimen Blood Performing Organization Address [facility] LAB[facility]ATORY SERVICES CLIA # [id number] [place] [address] - [place] 100 [facility] CLIA # [id number] [place], [place] [address] - [place] [address] [facility] [employer] * HEMOGLOBIN AND HEMATOCRIT (09/05/2017 6:51 PM CDT) HEMOGLOBIN 7.5 (L) 13.5 - 18.0 g/dL [facility] [employer] [facility] - [place] HEMATOCRIT 24.1 (L) 42.0 - 52.0 % [facility] [employer] [facility] - [place] Specimen Blood Performing Organization Address [facility] [employer] [facility] CLIA # [id number] [place] [address] - [place] [address] [facility] SERVICES CLIA # [id number] [place], [place] [address] - [place] [address] [facility] [employer] * POC GLUCOSE (09/05/2017 4:23 PM CDT) Pathologist [facility] POC GLUCOSE 162 (H) 70 - 105 mg/dL [facility] [employer] [facility] [place] JEWELRY DESIGNER NAME beti douglas [facility] [employer] [facility] - [place] Specimen Whole blood sample (specimen) Performing Organization Address [facility] [employer] SERVICES CLIA # [id number] [place] [address] - [place] [address] [facility] SERVICES CLIA # [id number] [place], [place] [address] - [place] [address] [facility] [employer] * HEMOGLOBIN AND HEMATOCRIT (09/05/2017 12:09 PM CDT) HEMOGLOBIN 8.1 (L) 13.5 - 18.0 g/dL [facility] [place] HEMATOCRIT 25.8 (L) 42.0 - 52.0 % [facility] [place] Specimen Blood Performing Organization Address [facility] SERVICES CLIA # [id number] [place] [address] - [place] [address] [facility] SERVICES CLIA # [id number] [place], [place] [address] - [place] [address] * POC GLUCOSE (09/05/2017 11:32 AM CDT) POC GLUCOSE 162 (H) 70 - 105 mg/dL [facility] [place] JEWELRY DESIGNER NAME beti douglas [facility] [employer] [facility] - [place] Specimen Whole blood sample (specimen) Performing Organization Address [facility] [employer] SERVICES CLIA # [id number] [place] [address] - [place] [address] [facility] LAB[facility] SERVICES CLIA # [id number] [place], [place] [address] - [place] [address] [facility] * POC GLUCOSE (09/05/2017 8:19 AM CDT) POC GLUCOSE 133 (H) 70 - 105 mg/dL [facility] [place] JEWELRY DESIGNER NAME beti douglas [facility] [employer] [facility] [place] Specimen Whole blood sample (specimen) Performing Organization Address [facility] SERVICES CLIA # [id number] [place] [address] - [place] [address] [facility] SERVICES CLIA # [id number] [place], [place] [address] - [place] [address] * POC GLUCOSE (09/05/2017 4:12 AM CDT) POC GLUCOSE 129 (H) 70 - 105 mg/dL [facility] [place] JEWELRY DESIGNER NAME michael gannon [facility] [place] Specimen Whole blood sample (specimen) Performing Organization Address [facility] SERVICES CLIA # [id number] [place] [address] - [place] [address] [facility] SERVICES CLIA # [id number] [place] [address] - [place] [address] [facility] * BASIC METABOLIC PANEL (09/05/2017 4:04 AM CDT) [facility] SODIUM 136 136 - 145 mmol/L [facility] [place] POTASSIUM 3.9 3.5 - 5.1 mmol/L [facility] [place] CHLORIDE 102 98 - 107 mmol/L [facility] [place] CO2 20 (L) 22 - 29 mmol/L [facility] [place] CALCIUM 8.0 (L) 8.8 - 10.2 mg/dL [facility] [place] BUN 8 8 - 23 mg/dL [facility] [place] CREATININE 0.47 (L) 0.67 - 1.17 mg/dL [facility] [place] GLUCOSE 125 (H) 74 - 105 mg/dL [facility] [place] GFR >60 >=60 mL/min/1.73 sq [facility] Comment: meter LABORATORY eGFR has not [...] GFR result. GFR, >60 >=60 mL/min/1.73 sq [facility] [place] ANION GAP 14 (H) 4 - 13 mmol/L [facility] [place] Specimen Blood Performing Organization Address City/State/Zipcode Ph one Number [facility] CLIA # [id number] [place] [phone] - [place] 100 [facility] SERVICES CLIA # [id number] [place] [address] - [place] [address] [facility] * CBC WITH DIFFERENTIAL (09/05/2017 4:04 AM CDT) [facility] WBC 7.7 4.0 - 11.0 K/uL [facility] [place] RBC 2.88 (L) 4.70 - 6.00 M/uL [facility] [place] HEMOGLOBIN 8.1 (L) 13.5 - 18.0 g/dL [facility] [place] HEMATOCRIT 24.8 (L) 42.0 - 52.0 % [facility] [place] MCV 86.1 78.0 - 100.0 fL [facility] [place] MCH 28.1 27.0 - 34.0 pg [facility] [place] MCHC 32.7 31.0 - 37.0 g/dL [facility] [place] RDW 15.9 (H) 12.0 - 15.0 % [facility] [place] RDW-STDEV 49.7 (H) 37.1 - 48.7 fL [facility] [place] PLATELETS 399 150 - 450 K/uL [facility] [place] MPV 8.0 (L) 9.3 - 12.4 fL [facility] [place] NEUTROPHILS 71 31 - 76 % [facility] [place] LYMPHOCYTES 21 (L) 24 - 44 % [facility] [place] MONOCYTES 7 2 - 11 % [facility] [place] EOSINOPHILS 0 0 - 6 % [facility] [place] BASOPHILS 0 0 - 2 % [facility] [place] IMMATURE 1 0 - 2 % [facility] [place] NEUTROPHIL 5.48 1.80 - 7.70 K/uL [facility] [place] LYMPHOCYTE 1.60 1.00 - 4.80 K/uL [facility] [place] MONOCYTE 0.55 0.10 - 1.30 K/uL [facility] [place] EOSINOPHIL 0.02 0.00 - 0.70 K/uL [facility] [place] BASOPHILS 0.01 0.00 - 0.20 K/uL [facility] [place] IMMATURE 0.05 0.00 - 0.10 K/uL [facility] [place] Specimen Blood Performing Organization Address City/State/Zipcode Ph one Number [facility] CLIA # [id number] [place] [address] - [place] [address] [facility] LAB[facility] SERVICES CLIA # [id number] [place], [place] [address] - [place] [address] * HEMOGLOBIN AND HEMATOCRIT (09/05/2017 12:27 AM CDT) HEMOGLOBIN 8.2 (L) 13.5 - 18.0 g/dL [facility] [place] HEMATOCRIT 25.7 (L) 42.0 - 52.0 % [facility] - [place] Specimen Blood Performing Organization Address [facility] LABORATORY SERVICES CLIA # [id number] [place] [address] - [place] [address] [facility] LAB[facility]ORY SERVICES CLIA # [id number] [place], [place] [address] - [place] [address] [facility] [employer] * POC GLUCOSE (09/04/2017 11:56 PM CDT) POC GLUCOSE 154 (H) 70 - 105 mg/dL [facility] [place] JEWELRY DESIGNER NAME michael gannon [facility] [place] Specimen Whole blood sample (specimen) Performing Organization Address [facility] LABORATORY SERVICES CLIA # [id number] [place] [address] - [place] [address] [facility] LAB[facility]ORY SERVICES CLIA # [id number] [place], [place] [address] - [place] [address] [facility] [employer] * POC GLUCOSE (09/04/2017 8:27 PM CDT) POC GLUCOSE 165 (H) 70 - 105 mg/dL [facility] - [place] JEWELRY DESIGNER NAME michael gannon [facility] - [place] Specimen Whole blood sample (specimen) Performing Organization Address [facility] LABORATORY SERVICES CLIA # [id number] [place] [address] - [place] [address] [facility] LAB[facility]ORY SERVICES CLIA # [id number] [place], [place] [address] - [place] 100 [facility] * HEMOGLOBIN AND HEMATOCRIT (09/04/2017 8:27 PM CDT) HEMOGLOBIN 8.5 (L) 13.5 - 18.0 g/dL [facility] [place] HEMATOCRIT 26.2 (L) 42.0 - 52.0 % [facility] Specimen Blood Performing Organization Address [facility] CLIA # [id number] [place] [address] - [place] 100 [facility] LABORATORY SERVICES CLIA # [id number] [place], [place] [address] - [place] 100 [facility] * POC GLUCOSE (09/04/2017 8:03 PM CDT) POC GLUCOSE 160 (H) 70 - 105 mg/dL [facility] JEWELRY DESIGNER NAME jaime chou [facility] Specimen Whole blood sample (specimen) Performing Organization Address [facility] CLIA # [id number] [place] [address] - [place] 100 [facility] CLIA # [id number] [place], [place] [address] - [place] 100 [facility] * XR FLUORO LESS THAN 1 HOUR (09/04/2017 6:36 PM CDT) Specimen Narrative Performed At This result has an attachment that is n ot available. Order information only. Exam was auto -finalized. * PATHOLOGY (09/04/2017 6:24 PM CDT) CASE REPORT Surgical Pathology Report [facility] Case: [id number] [facility] Authorizing Provider: Walter Tinsley MD Collected: 09/04/2017 1824 Ordering Location: [facility] Received: 09/06/2017 0753 Operating Room Pathologist: Keshia Menendez MD Specimen: Bladder, BLADDER LORAINE FINAL DIAGNOSIS Bladder biopsy: [facility] Electronical ly 1. Negative for malignancy. LABORATORY signed by Shon, 2. Ulcerated mucosa with SERVICES - Keshia Vidal MD on reactive/regenerative atypia. [place] 017 at 3:47 3. Moderate chronic cystitis PM with vascular congestion and non-specific hemorrhage. CPT Code: 29124 OPERATIVE Cystoscopy with clot [facility] PROCEDURE evacuation bladder LABORATORY SERVICES - [place] CLINICAL Blood clot in bladder [facility] INFORMATION LABORATORY SERVICES - [place] GROSS The two erythematous light [facility] DES[facility] parsons mucosal biopsies each LABORATORY measures 0.4 cm. The specimen SERVICES - is wrapped and submitted in a [place] single cassette. SOP/na MICROSCOPIC The bladder biopsy is [facility] DESCRIPTION represented in multiple levels AGUSTO PONCE on six H&E stained slides. SERVICES - There is extensive ulceration [place] of the mucosa with re-epithelialization by reactive/regenerative cells. There is marked edema of the submucosa which is expanded by a moderate chronic inflammatory infiltrate composed mainly of lymphocytes. Vascular congestion and non-specific hemorrhage are identified. SOP/scs Specimen Tissue - Urinary bladder structure (body structure) Narrative Performed At This result has an attachment that is n ot available. Performing Organization Address [facility] Ph one [facility] LABORATORY SERVICES CLIA # [id number] [place] [address] - [place] 100 [facility] LABORATORY SERVICES CLIA # [id number] [place], [place] [address] - [address] * POC GLUCOSE (09/04/2017 4:09 PM CDT) POC GLUCOSE 142 (H) 70 - 105 mg/dL [facility] [employer] SERVICES - [place] JEWELRY DESIGNER NAME luiza cook [facility] LABORATORY SERVICES - [place] Specimen Whole blood sample (specimen) Performing Organization Address City/[facility] Ph one [facility] [employer] SERVICES CLIA # [id number] [place] [address] - [place] 100 [facility] LABORATORY SERVICES CLIA # [id number] [place], [place] [address] - [address] * HEMOGLOBIN AND HEMATOCRIT (09/04/2017 12:02 PM CDT) HEMOGLOBIN 7.9 (L) 13.5 - 18.0 g/dL [facility] [employer] SERVICES - [place] HEMATOCRIT 24.7 (L) 42.0 - 52.0 % [facility] LABORATORY SERVICES - [place] Specimen Blood Performing Organization Address [facility] Ph one Number [facility] LABORATORY SERVICES CLIA # [id number] [place] [address] - [place] 100 [facility] LABORATORY SERVICES CLIA # [id number] [place], [place] [address] - [place] [address] * POC GLUCOSE (09/04/2017 12:00 PM CDT) POC GLUCOSE 176 (H) 70 - 105 mg/dL [facility] LABORATORY SERVICES - [place] JEWELRY DESIGNER NAME luiaz cook [facility] LABORATORY SERVICES - [place] Specimen Whole blood sample (specimen) Performing Organization Address [facility] one Number [facility] LABORATORY SERVICES CLIA # [id number] [place] [address] - [place] 100 [facility] LABORATORY SERVICES CLIA # [id number] [place] [address] - [place] 100 [facility] * URINE CULTURE (09/04/2017 9:08 AM CDT) CULTURE No growth [facility] LABORATORY SERVICES - [place] Specimen Urine - Urine, indwelling ([place]) catheter Performing Organization Address [facility] one Number [facility] LABORATORY SERVICES CLIA # [id number] [place] [address] - [place] 100 [facility] LABORATORY SERVICES CLIA # [id number] [place] [address] - [place] 100 [facility] * URINALYSIS WITH REFLEX CULTURE (09/04/2017 9:08 AM CDT) COLOR UA Red (A) Pale to dark yellow [facility] - [place] CLARITY UA Cloudy (A) Clear [facility] LABORATORY SERVICES - [place] SPECIFIC 1.020 1.003 - 1.035 [facility] LABORATORY SERVICES - [place] PH UA 8.0 5.0 - 8.0 [facility] LABORATORY SERVICES - [place] LEUKOCYTE 1+ (A) Negative [facility] LABORATORY SERVICES - [place] NITRITE UA Negative Negative [facility] LABORATORY SERVICES - [place] PROTEIN UA 2+ (A) Negative [facility] - [place] GLUCOSE UA Negative Negative [facility] LABORATORY SERVICES - [place] KETONES UA Negative Negative, Invalid [facility] Result LABORATORY SERVICES - [place] UROBILINOGEN UA 0.2 <2.0 mg/dL [facility] LABORATORY SERVICES - [place] BILIRUBIN UA Negative Negative [facility] LABORATORY SERVICES - [place] BLOOD UA 3+ (A) Negative [facility] LABORATORY SERVICES - [place] WBC UA >100 (A) 0 - 2 /hpf [facility] LABORATORY SERVICES - [place] RBC UA >100 (A) 0 - 2 /hpf [facility] LABORATORY SERVICES - [place] BACTERIA UA 2+ (A) Negative /hpf [facility] LABORATORY SERVICES - [place] Specimen Urine - Urine, indwelling ([place]) catheter Narrative Performed At Based on results, a urine culture has been reflexed. [facility] LABORATORY SERVICES - [place] Performing Organization Address [facility] CLIA # [id number] [place] [address] - [address] CLIA # [id number] [place] [address] - [address] * POC GLUCOSE (09/04/2017 7:42 AM CDT) POC GLUCOSE 199 (H) 70 - 105 mg/dL [facility] [employer] [facility] - [place] JEWELRY DESIGNER NAME luiza cook [facility] LABORATORY SERVICES - [place] Specimen Whole blood sample (specimen) Performing Organization Address [facility] one [facility] [employer] [facility] CLIA # [id number] [place] [address] - [address] LABORATORY SERVICES CLIA # [id number] [place] [address] - [address] * EKG 12-LEAD (09/04/2017 7:25 AM CDT) Specimen Narrative Performed At Stationary ECG Study INTERFACE SYSTEM [address] [place] [address] Test Date: 09/04/2017 7:52 AM Pat Name: OLIVERIO TINSLEY Department: 30 Room: [address] [place] [address] Gender: Male Benefits Consulting Analyst: [id number] : 1950 Requested By: Order Number: [id number] Reading MD: Juan Manuel Richey MD Severity: Abnormal ECG Measurements Intervals [place] Rate: 89 P: 48 MA: 218 QRS: 28 QRSD: 84 T: 73 QT: 364 QTc: 442 Interpretive Statements S inus rhythm with 1st degree AV block Low voltage QRS Nonspecific T wave abnormality Abnormal ECG Electronically Signed On 09-05-2017 21: 44:48 CDT by Juan Manuel Richey MD Procedure Note Interface, [facility] Incoming Radiology Results - 09/05/2017 9:44 PM CDT Stationary ECG Study [address] [place] [address] Test Date: 09/04/2017 7:52 AM Pat Name: OLIVERIO TINSLEY Department: 30 Room: [address] [place] [address] Gender: Male Benefits Consulting Analyst: [id number] : 1950 Requested By: Order Number: [id number] Reading MD: Juan Manuel Richey MD Severity: Abnormal ECG Measurements Intervals [place] Rate: 89 P: 48 MA: 218 QRS: 28 QRSD: 84 T: 73 QT: 364 QTc: 442 Interpretive Statements Sinus rhythm with 1st degree AV block Low voltage QRS Nonspecific T wave abnormality Abnormal ECG Electronically Signed On 09-05-2017 21:44:48 CDT by Juan Manuel Richey MD Performing Organization Address [facility] Ph one Number INTERFACE SYSTEM INTERFACE SYSTEM Refer to clinic/hospital department * PROTIME-INR (09/04/2017 5:26 AM CDT) Pathologist [facility] PROTIME 17.3 (H) 11.8 - 14.6 Seconds [facility] LABORATORY [facility] - [place] INR 1.4 (H) 0.9 - 1.2 [facility] LABORATORY SERVICES - [place] Specimen Blood Narrative Performed At Therapeutic range: 2.0 - 3.5 [facility] LABORATORY [facility] - [place] Performing Organization Address City/[facility] one Number [facility] LABORATORY SERVICES CLIA # [id number] [place] [address] - [address] LABORATORY SERVICES CLIA # [id number] [place] [address] - [address] * BASIC METABOLIC PANEL (09/04/2017 4:49 AM CDT) SODIUM 137 136 - 145 mmol/L [facility] - [place] POTASSIUM 4.1 3.5 - 5.1 mmol/L [facility] - [place] CHLORIDE 102 98 - 107 mmol/L [facility] - [place] CO2 22 22 - 29 mmol/L [facility] - [place] CALCIUM 8.4 (L) 8.8 - 10.2 mg/dL [facility] - [place] BUN 11 8 - 23 mg/dL [facility] - [place] CREATININE 0.53 (L) 0.67 - 1.17 mg/dL [facility] - [place] GLUCOSE 171 (H) 74 - 105 mg/dL [facility] - [place] GFR [...] result. GFR, >60 >=60 mL/min/1.73 sq [facility] meter LABORATORY SERVICES - [place] ANION GAP 13 4 - 13 mmol/L [facility] - [place] Specimen Blood Performing Organization Address City/State/Zipcode Ph one Number [facility] LABORATORY SERVICES CLIA # [id number] [place] [address] - [place] [address] [employer] LABORATORY SERVICES CLIA # [id number] [place] [address] - [place] 100 [facility] * CBC WITH DIFFERENTIAL (09/04/2017 4:49 AM CDT) WBC 8.2 4.0 - 11.0 K/uL [facility] - [place] RBC 2.93 (L) 4.70 - 6.00 M/uL [facility] - [place] HEMOGLOBIN 8.0 (L) 13.5 - 18.0 g/dL [facility] - [place] HEMATOCRIT 24.5 (L) 42.0 - 52.0 % [facility] LABORATORY SERVICES - [place] MCV 83.6 78.0 - 100.0 fL [facility] LABORATORY SERVICES - [place] MCH 27.3 27.0 - 34.0 pg [facility] LABORATORY SERVICES - [place] MCHC 32.7 31.0 - 37.0 g/dL [facility] LABORATORY SERVICES - [place] RDW 15.5 (H) 12.0 - 15.0 % [facility] LABORATORY SERVICES - [place] RDW-STDEV 47.3 37.1 - 48.7 fL [facility] LABORATORY SERVICES - [place] PLATELETS 428 150 - 450 K/uL [facility] LABORATORY SERVICES - [place] MPV 7.9 (L) 9.3 - 12.4 fL [facility] LABORATORY SERVICES - [place] NEUTROPHILS 71 31 - 76 % [facility] - [place] LYMPHOCYTES 18 (L) 24 - 44 % [facility] - [place] MONOCYTES 9 2 - 11 % [facility] - [place] EOSINOPHILS 1 0 - 6 % [facility] - [place] BASOPHILS 0 0 - 2 % [facility] - [place] IMMATURE 1 0 - 2 % [facility] GRANULOCY[facility] LABORATORY SERVICES - [place] NEUTROPHIL 5.85 1.80 - 7.70 K/uL [facility] LABORATORY SERVICES - [place] LYMPHOCYTE 1.49 1.00 - 4.80 K/uL [facility] LABORATORY SERVICES - [place] MONOCYTE 0.73 0.10 - 1.30 K/uL [facility] LAB[facility] SERVICES - [place] EOSINOPHIL 0.07 0.00 - 0.70 K/uL [facility] LABORATORY SERVICES - [place] BASOPHILS 0.02 0.00 - 0.20 K/uL [facility] LABORATORY SERVICES - [place] IMMATURE 0.05 0.00 - 0.10 K/uL [facility] LABORATORY ABSOLUTE SERVICES - [place] Specimen Blood Performing Organization Address City/State/Zipcode Ph one Number [facility] LABORATORY SERVICES CLIA # [id number] [place] [address] - [place] 100 [facility] LABORATORY SERVICES CLIA # [id number] [place] [address] - [place] 100 [facility] * HEMOGLOBIN AND HEMATOCRIT (09/04/2017 12:54 AM CDT) HEMOGLOBIN 7.9 (L) 13.5 - 18.0 g/dL [facility] - [place] HEMATOCRIT 25.0 (L) 42.0 - 52.0 % [facility] - [place] Specimen Blood Performing Organization Address City/[facility] one Number [facility] LABORATORY SERVICES CLIA # [id number] [place] [address] - [place] 100 [facility] LABORATORY SERVICES CLIA # [id number] [place], [place] [address] - [place] [address] * PREPARE FRESH FROZEN PLASMA (2017 11:36 PM CDT) COMPONENT TYPE [id number] [facility] -- [place] COMPONENT [id number] [employer] LABORATORY SERVICES -- [place] UNIT ABO A [employer] LABORATORY SERVICES -- [place] UNIT RH POS [employer] LABORATORY SERVICES -- [place] COMPONENT Transfused [facility] LABORATORY SERVICES -- [place] COMPONENT [id number] [facility]ATION LABORATORY DATE/TIME SERVICES -- [place] COMPONENT [id number] [employer] SYSTEM LABORATORY SERVICES -- [place] Specimen Performing Organization Address [facility] [employer] LABORATORY SERVICES CLIA # [id number] [place] [address] -- [place] 100 [facility] LABORATORY SERVICES CLIA # [id number] [place], [place] [address] -- [place] [address] * PREPARE FRESH FROZEN PLASMA (2017 11:36 PM CDT) COMPONENT TYPE [id number] [employer] LABORATORY SERVICES -- [place] COMPONENT [id number] [employer] LABORATORY SERVICES -- [place] UNIT ABO A [facility] -- [place] UNIT RH POS [facility] SERVICES -- [place] COMPONENT Transfused [facility] LABORATORY SERVICES -- [place] COMPONENT [id number] [facility]PIRATION LABORATORY DATE/TIME SERVICES -- [place] COMPONENT [employer] [employer] SYSTEM LABORATORY SERVICES -- [place] Specimen Other, specify Performing Organization Address City/[facility]/Zipcode Ph one Number [facility] LABORATORY SERVICES CLIA # [id number] [place] [address] -- [place] 100 [facility] LABORATORY SERVICES CLIA # [id number] [place], [place] [address] -- [place] [address] * PREPARE RED BLOOD CELLS (2017 9:31 PM CDT) COMPONENT TYPE [id number] [facility] LABORATORY SERVICES -- [place] COMPONENT [id number] [facility] IDENTIFICATION LABORATORY SERVICES -- [place] UNIT ABO A [facility] LABORATORY SERVICES -- [place] UNIT RH POS [facility] -- [place] COMPONENT Transfused [facility] STATUS LABORATORY SERVICES -- [place] COMPONENT [id number] [facility] EXPIRATION LABORATORY DATE/TIME SERVICES -- [place] COMPONENT 6200 [facility] CODING SYSTEM LABORATORY SERVICES -- [place] Specimen Other, specify Performing Organization Address City/State/Zipcode Ph one Number [facility] LABORATORY SERVICES CLIA # [id number] [place] [address] -- [place] 100 [facility] LABORATORY SERVICES CLIA # [id number] [place], [place] [address] -- [place] 100 [facility] * COMPREHENSIVE METABOLIC PANEL (2017 7:53 PM CDT) SODIUM 133 (L) 136 - 145 mmol/L [facility] LABORATORY SERVICES - [place] POTASSIUM 4.5 3.5 - 5.1 mmol/L [facility] LABORATORY SERVICES - [place] CHLORIDE 101 98 - 107 mmol/L [facility] LABORATORY SERVICES - [place] CO2 22 22 - 29 mmol/L [facility] LABORATORY SERVICES - [place] CALCIUM 7.9 (L) 8.8 - 10.2 mg/dL [facility] LABORATORY SERVICES - [place] BUN 14 8 - 23 mg/dL [facility] LABORATORY SERVICES - [place] CREATININE 0.52 (L) 0.67 - 1.17 mg/dL [facility] LABORATORY SERVICES - [place] GLUCOSE 171 (H) 74 - 105 mg/dL [facility] LABORATORY SERVICES - [place] TOTAL PROTEIN 5.0 (L) 6.4 - 8.3 g/dL [facility] LABORATORY SERVICES - [place] ALBUMIN 2.7 (L) 4.0 - 4.9 g/dL [employer] LABORATORY SERVICES - [place] BILIRUBIN TOTAL 0.3 <=1.2 mg/dL [facility] - [place] ALKALINE 116 40 - 129 U/L [facility] PHOSPHATASE LABORATORY SERVICES - [place] AST 48 (H) 0 - 40 U/L [facility] - [place] ALT 17 0 - 41 U/L [employer] LABORATORY SERVICES - [place] GFR >60 >=60 mL/min/1.73 sq [facility] Comment: meter LABORATORY eGFR has not [...] GFR result. GFR, >60 >=60 mL/min/1.73 sq [facility] [employer] [employer] meter LABORATORY SERVICES - [place] ANION GAP 10 4 - 13 mmol/L [employer] LABORATORY SERVICES - [place] Specimen Blood Performing Organization Address [facility] Ph one [facility] LABORATORY SERVICES CLIA # [id number] [place] [address] - [place] 100 [facility] LABORATORY SERVICES CLIA # [id number] [place] [address] - [place] 100 [facility] * PROTIME-INR (2017 7:53 PM CDT) PROTIME 16.8 (H) 11.8 - 14.6 Seconds [employer] LABORATORY SERVICES - [place] INR 1.4 (H) 0.9 - 1.2 [employer] LABORATORY SERVICES - [place] Specimen Blood Narrative Performed At Therapeutic range: 2.0 - 3.5 [facility] LABORATORY SERVICES - [place] Performing Organization Address City/[facility] Ph one Number [employer] LABORATORY SERVICES CLIA # [id number] [place] [address] - [place] 100 [facility] LABORATORY SERVICES CLIA # [id number] [place] [address] - [place] [address] * CBC WITH DIFFERENTIAL (2017 7:53 PM CDT) WBC 9.4 4.0 - 11.0 K/uL [facility] - [place] RBC 2.53 (L) 4.70 - 6.00 M/uL [facility] - [place] HEMOGLOBIN 6.6 (LL) 13.5 - 18.0 g/dL [facility] - [place] HEMATOCRIT 21.4 (L) 42.0 - 52.0 % [facility] - [place] MCV 84.6 78.0 - 100.0 fL [facility] - [place] MCH 26.1 (L) 27.0 - 34.0 pg [facility] - [place] MCHC 30.8 (L) 31.0 - 37.0 g/dL [employer] LABORATORY SERVICES - [place] RDW 16.1 (H) 12.0 - 15.0 % [facility] - [place] RDW-STDEV 49.2 (H) 37.1 - 48.7 fL [employer] LABORATORY SERVICES - [place] PLATELETS 613 (H) 150 - 450 K/uL [facility] - [place] MPV 8.2 (L) 9.3 - 12.4 fL [facility] - [place] NEUTROPHILS 64 31 - 76 % [facility] - [place] LYMPHOCYTES 26 24 - 44 % [facility] - [place] MONOCYTES 9 2 - 11 % [facility] - [place] EOSINOPHILS 1 0 - 6 % [facility] - [place] BASOPHILS 0 0 - 2 % [facility] - [place] IMMATURE 1 0 - 2 % [facility] GRANULOCYTES LABORATORY SERVICES - [place] NEUTROPHIL 6.02 1.80 - 7.70 K/uL [facility]OLUTE LABORATORY SERVICES - [place] LYMPHOCYTE 2.43 1.00 - 4.80 K/uL [facility] LAB[facility]AT[facility] SERVICES - [place] MONOCYTE 0.82 0.10 - 1.30 K/uL [facility] LAB[facility]AT[facility] SERVICES - [place] EOSINOPHIL 0.06 0.00 - 0.70 K/uL [facility] LAB[facility]AT[facility] SERVICES - [place] BASOPHILS 0.01 0.00 - 0.20 K/uL [facility] LAB[facility]AT[facility] SERVICES - [place] IMMATURE 0.06 0.00 - 0.10 K/uL [facility] [employer]AN[employer] LABORATORY ABSOLUTE SERVICES - [place] Specimen Blood Performing Organization Address [facility] Ph one [place] [facility] LABORATORY SERVICES CLIA # [id number] [place] [address] - [place] 100 [facility] LABORATORY SERVICES CLIA # [id number] [place], [place] [address] - [place] 100 [facility] * POC GLUCOSE (2017 7:52 PM CDT) POC GLUCOSE 181 (H) 70 - 105 mg/dL [facility] LABORATORY SERVICES - [place] JEWELRY DESIGNER NAME michael gannon [facility] LAB[place]ATORY SERVICES - [place] Specimen Whole blood sample (specimen) Performing Organization Address [facility] one [place] [facility] LABORATORY SERVICES CLIA # [id number] [place] [address] - [place] 100 [facility] LABORATORY SERVICES CLIA # [id number] [place], [place] [address] - [place] 100 [facility] * CT UROGRAPHY (2017 6:31 PM CDT) Specimen Impressions Performed At IMPRESSION: INTERFACE SYSTEM 1. Moderate left hydroureteronephrosis extending to the left ureteropelvic junction with nonopacific ation of the left ureter. Differential considerations include lef t ureteropelvic junction obstruction secondary to kink, hematoma or occult urothelial lesion. 2. Large bladder masses, likely hematom as, which could obscure a bladder neoplasm. Recommend repeating e xamination after resolution of acute hemorrhage. 3. Acute fracture of the right femur gr eater trochanter. Mild wedging of the L1 inferior endplate. 4. Penile prosthesis. 5. Small fat-containing left inguinal h ernia. Narrative Performed At CT UROGRAPHY INTERFACE SYSTEM HISTORY: Male, 67 years old. Hematuria TECHNIQUE: Computed tomography of the a bdomen and pelvis was performed prior to and following the uneventful a dministration of intravenous contrast according a urographic protoco l with postcontrast images obtained during nephrographic and excre tory phases of enhancement. Three dimensional postprocessing was pe rformed by a radiologist on a dedicated 3D workstation. CONTRAST: IOPAMIDOL 61 % INTRAVENOUS SO LUTION Given:100 mL COMPARISON: Chest CTA 2012 Right Kidney: The right kidney measures 11.8 cm pole to pole. There is one renal artery and one renal vein. Th ere are no focal lesions. No calculi are seen. There is no hydrone phrosis. The ureter is normal. The urothelium appears normal. Left Kidney: The left kidney measures 12.6 cm pole to pole. There is one renal artery and one renal vein. Th ere are no focal lesions. There is a 4 mm calculus in the lower p ole (series 2, image 70). There is moderate hydronephrosis and an extra renal pelvis. On delayed series, there is filling of the extrare nal pelvis, however there is no opacification of the left ureter beyond the ureteropelvic junction. Bladder: The bladder contains a Ulloa c atheter. There are multiple large masses within the bladder measuri ng up to 7.6 cm in size. There is gas within the urinary bladder. NON-UROGRAPHIC FINDINGS: Mild right lower lobe atelectasis. No p leural or pericardial effusion. The liver appears normal. Mild intrahep atic biliary ductal dilatation, likely related to postcholecystectomy s whitt. Large and small bowel are normal in caliber. No free intraperiton eal fluid. There is a fat-containing left inguinal hernia. A penile prosthesis is present. There is mild wedging of the L1 inferio r endplate. There is an instrumented left proximal femoral frac ture. There is a fracture of the right femur greater trochanter. Procedure Note Interface, Bong Sgf Incoming Radiology Results - 2017 6:[address] UROGRAPHY HISTORY: Male, 67 years old. Hematuria TECHNIQUE: Computed tomography of the abdomen and pelvis was performed prior to and following the uneventful administration of intravenous contrast according a urographic protocol with postcontrast images obtained during nephrographic and excretory phases of enhancement. Three dimensional postprocessing was performed by a radiologist on a dedicated 3D workstation. CONTRAST: IOPAMIDOL 61 % INTRAVENOUS SOLUTION Given:100 mL COMPARISON: Chest CTA 2012 Right Kidney: The right kidney measures 11.8 cm pole to pole. There is one renal artery and one renal vein. There are no focal lesions. No calculi are seen. There is no hydronephrosis. The ureter is normal. The urothelium appears normal. Left Kidney: The left kidney measures 12.6 cm pole to pole. There is one renal artery and one renal vein. There are no focal lesions. There is a 4 mm calculus in the lower pole (series 2, image 70). There is moderate hydronephrosis and an extrarenal pelvis. On delayed series, there is filling of the extrarenal pelvis, however there is no opacification of the left ureter beyond the ureteropelvic junction. Bladder: The bladder contains a Ulloa catheter. There are multiple large masses within the bladder measuring up to 7.6 cm in size. There is gas within the urinary bladder. NON-UROGRAPHIC FINDINGS: Mild right lower lobe atelectasis. No pleural or pericardial effusion. The liver appears normal. Mild intrahepatic biliary ductal dilatation, likely related to postcholecystectomy state. Large and small bowel are normal in caliber. No free intraperitoneal fluid. There is a fat-containing left inguinal hernia. A penile prosthesis is present. There is mild wedging of the L1 inferior endplate. There is an instrumented left proximal femoral fracture. There is a fracture of the right femur greater trochanter. IMPRESSION: 1. Moderate left hydroureteronephrosis e xtending to the left ureteropelvic junction with nonopacification of the left ureter. Differential considerations include left ureteropelvic junction obstruction secondary to kink, hematoma or occult urothelial lesion. 2. Large bladder masses, likely hematoma s, which could obscure a bladder neoplasm. Recommend repeating examination after resolution of acute hemorrhage. 3. Acute fracture of the right femur gre ater trochanter. Mild wedging of the L1 inferior endplate. 4. Penile prosthesis. 5. Small fat-containing left inguinal he rnia. Performing Organization Address City/State/Zipcode Ph one Number INTERFACE SYSTEM INTERFACE SYSTEM Refer to clinic/hospital department * BLOOD GAS ARTERIAL (2017 5:21 PM CDT) PH ARTERIAL 7.40 7.38 - 7.46 [facility] [place] PCO2 ARTERIAL 36 32 - 46 mm Hg [facility] [place] PO2 ARTERIAL 102 74 - 108 mm Hg [facility] [place] HCO3 ARTERIAL 22 21 - 29 mmol/L [facility] [place] BASE EXCESS ABG -2.4 (L) -2.0 - 2.0 mmol/L [facility] [place] HEMOGLOBIN ABG 5.7 (LL) 13.5 - 18.0 g/dL [facility] [place] O2 SAT EST 99 (H) 92 - 98 % [facility] ARTERIAL [facility] [place] OXYGEN MODE Nasal Cannula [facility] [place] LITER FLOW 2.0 L/min [facility] [place] Specimen Blood, arterial Performing Organization Address [facility] one Number [facility] CLIA # [id number] [place] [address] - [place] 100 [facility] LAB[facility]ORY SERVICES CLIA # [id number] [place] [address] - [place] 100 [facility] * XR CHEST PA OR AP (2017 5:11 PM CDT) Specimen Impressions Performed At Impression: INTERFACE SYSTEM 1. Satisfactory placement of right IJ c entral venous catheter. Narrative Performed At Chest, single view. Comparison 09/02/2012. INTERFACE SYSTEM History: Line Placement Findings: Right IJ central venous yen ter with tip present mid SVC. Suboptimal inspiration. No evident pneu mothorax. Low lung volume bilaterally. Heart size is stable. Procedure Note [place] [facility] [place] Radiology Results - 2017 5:31 PM CDT Chest, single view. Comparison 09/02/2012. History: Line Placement Findings: Right IJ central venous catheter with tip present mid SVC. Suboptimal inspiration. No evident pneumothorax. Low lung volume bilaterally. Heart size is stable. Impression: 1. Satisfactory placement of right IJ ce ntral venous catheter. Performing Organization Address [facility] one Number INTERFACE SYSTEM INTERFACE SYSTEM Refer to clinic/hospital department * TYPE AND SCREEN (2017 4:34 PM CDT) ABO GROUP A [facility] [place] RH (D) TYPE Positive [facility] [place] ANTIBODY SCREEN Negative [facility] [place] Specimen Blood Performing Organization Address [facility] one Number [facility] CLIA # [id number] [place] [address] -- [place] 100 [facility] LAB[facility]ORY SERVICES CLIA # [id number] [place], [place] [address] -- [place] 100 [facility] * PREPARE RED BLOOD CELLS (2017 4:19 PM CDT) COMPONENT TYPE [id number] [facility] [place] COMPONENT [id number] [facility] IDENTIFICATION [facility] [place] UNIT ABO A [facility] [place] UNIT RH POS [facility] [place] COMPONENT Transfused [facility] STATUS LAB[facility] -- [place] COMPONENT [id number] [facility] EXPIRATION LABORATORY DATE/TIME SERVICES -- [place] COMPONENT [id number] [facility] [employer] [facility] -- [place] Specimen Other, specify Performing Organization Address City/State/[facility] one Number [facility] CLIA # [id number] [place] [address] -- [place] 100 [facility] LAB[facility]ORY SERVICES CLIA # [id number] [place] [address] -- [place] 100 [facility] * LACTIC ACID (2017 3:08 PM CDT) LACTIC ACID 1.1 0.7 - 2.1 mmol/L [facility] [place] Specimen Blood Performing Organization Address [facility] Ph one Number [facility] CLIA # [id number] [place] [address] - [place] 100 [facility]ORY SERVICES CLIA # [id number] [place] [address] - [place] 100 [facility] * COMPREHENSIVE METABOLIC PANEL (2017 3:08 PM CDT) SODIUM 135 (L) 136 - 145 mmol/L [facility] [place] POTASSIUM 4.7 3.5 - 5.1 mmol/L [facility] [place] CHLORIDE 100 98 - 107 mmol/L [facility] [place] CO2 23 22 - 29 mmol/L [facility] [place] CALCIUM 8.1 (L) 8.8 - 10.2 mg/dL [facility] [place] BUN 18 8 - 23 mg/dL [facility] [place] CREATININE 0.61 (L) 0.67 - 1.17 mg/dL [facility] [place] GLUCOSE 214 (H) 74 - 105 mg/dL [facility] [place] TOTAL PROTEIN 5.5 (L) 6.4 - 8.3 g/dL [facility] [place] ALBUMIN 2.9 (L) 4.0 - 4.9 g/dL [facility] [place] BILIRUBIN TOTAL 0.3 <=1.2 mg/dL [facility] [place] ALKALINE 117 40 - 129 U/L [facility] [place] AST 20 0 - 40 U/L [facility] [place] ALT 15 0 - 41 U/L [facility] [place] GFR >60 [...] result. GFR, >60 >=60 mL/min/1.73 sq [facility] [place] ANION GAP 12 4 - 13 mmol/L [facility] [place] Specimen Blood Performing Organization Address City/State/Zipcode Ph one Number [facility] CLIA # [id number] [place] [address] - [place] [address] [facility] CLIA # [id number] [place] [address] - [place] 100 [facility] * CBC WITH DIFFERENTIAL (2017 3:08 PM CDT) WBC 10.9 4.0 - 11.0 K/uL [facility] [place] RBC 2.47 (L) 4.70 - 6.00 M/uL [facility] [place] HEMOGLOBIN 6.4 (LL) 13.5 - 18.0 g/dL [facility] [place] HEMATOCRIT 20.6 (L) 42.0 - 52.0 % [facility] [place] MCV 83.4 78.0 - 100.0 fL [facility] [place] MCH 25.9 (L) 27.0 - 34.0 pg [facility] [place] MCHC 31.1 31.0 - 37.0 g/dL [facility] [place] RDW 15.9 (H) 12.0 - 15.0 % [facility] [place] RDW-STDEV 48.8 (H) 37.1 - 48.7 fL [facility] [place] PLATELETS 561 (H) 150 - 450 K/uL [facility] [place] MPV 8.1 (L) 9.3 - 12.4 fL [facility] [place] NEUTROPHILS 77 (H) 31 - 76 % [facility] [place] LYMPHOCYTES 16 (L) 24 - 44 % [facility] [place] MONOCYTES 6 2 - 11 % [facility] [place] EOSINOPHILS 0 0 - 6 % [facility] [place] BASOPHILS 0 0 - 2 % [facility] [place] IMMATURE 1 0 - 2 % [facility] [place] NEUTROPHIL 8.39 (H) 1.80 - 7.70 K/uL [facility] [place] LYMPHOCYTE 1.76 1.00 - 4.80 K/uL [facility] [place] MONOCYTE 0.62 0.10 - 1.30 K/uL [facility] [place] EOSINOPHIL 0.03 0.00 - 0.70 K/uL [facility] [place] BASOPHILS 0.01 0.00 - 0.20 K/uL [facility] [place] IMMATURE 0.09 0.00 - 0.10 K/uL [facility] ABSOLUTE [facility] - [place] Specimen Blood Performing Organization Address City/State/Zipcode Ph one Number [facility] CLIA # [id number] [place] [address] - [place] [facility] CLIA # [id number] [place] [address] - [place] 100 Natasha Boggs documented in this encounter Visit Diagnoses Diagnosis Acute blood loss anemia - Primary Acute posthemorrhagic anemia Blood clot in bladder Hemorrhage into bladder wall Hematuria, unspecified type Greater trochanter fracture Closed fracture of unspecified trochant zoila section of femur Gross hematuria Hemorrhagic cystitis Cystitis, unspecified documented in this encounter Administered Medications Action Date Dose Rate Site Medication Order MAR Action 09/05/2017 9:14 PM CDT 20 mg atorvastatin (LIPITOR) tablet 20 mg Given 20 mg, Oral, DAILY AT BEDTIME, First dose on 09/05/17 at 2100, Until Discontinued, Routine 09/04/2017 7:25 AM CDT 1 Suppository belladonna alkaloids-opium (B&O 15A) Given 16.2-30 mg rectal suppository 1 Suppository 1 Suppository, Rectal, EVERY 6 HOURS PRN, Starting Wed09/03/17 at 2252, Until Wed09/06/17 at 2038, bladder spasms, Routine 09/06/2017 3:22 PM CDT 25 mg bethanechol (URECHOLINE) tablet 25 mg Given 25 mg, Oral, FOUR TIMES DAILY, First dose on 09/05/17 at 1300, Until Discontinued, Routine 25 mg Given 09/06/2017 8:09 AM CDT 25 mg Given 09/05/2017 9:14 PM CDT 09/06/2017 8:08 AM CDT 10 mg cetirizine (ZyrTEC) tablet 10 mg Given 10 mg, Oral, DAILY, First dose on Wed09/05/17 at 1145, Until Discontinued, Routine 10 mg Given 09/05/2017 12:08 PM CDT 09/06/2017 8:09 AM CDT 100 mg docusate sodium (COLACE) capsule 100 mg Given 100 mg, Oral, TWO TIMES DAILY, First dose on Wed09/03/17 at 2100, Until Discontinued, Routine 100 mg Given 09/05/2017 9:14 PM CDT 100 mg Given 09/05/2017 8:18 AM CDT 09/05/2017 9:14 PM CDT 10 mg ezetimibe (ZETIA) tablet 10 mg Given 10 mg, Oral, DAILY AT BEDTIME, First dose on 09/05/17 at 2100, Until Discontinued, Routine 09/06/2017 8:08 AM CDT 145 mg fenofibrate nanocrystallized (TRICOR) Given tablet 145 mg 145 mg, Oral, DAILY, First dose on 09/05/17 at 1145, Until Discontinued, Routine 145 mg Given 09/05/2017 12:07 PM CDT 2017 6:15 PM CDT 100 mL iopamidol (ISOVUE-300) 61 % injection Contrast 500 mL Given 500 mL, IV, INTRA-PROCEDURE ONCE, 1 dose, Starting Wed09/03/17 at 1735, Until Wed09/03/17 at 1815, Routine 09/06/2017 5:25 AM CDT 60 mg isosorbide mononitrate (IMDUR) SR 24 Given hour tablet 60 mg 60 mg, Oral, DAILY EARLY, First dose on 09/05/17 at 1145, Until Discontinued, Routine 60 mg Given 09/05/2017 12:07 PM CDT 09/06/2017 8:08 AM CDT 750 mg 100 mL/hr levoFLOXacin (LEVAQUIN) 750 mg/150 mL in New Bag D5W IVPB 750 mg 750 mg, IV, EVERY 24 HOURS, First dose on 09/04/17 at 0845, Until Discontinued, Routine, Antibiotic Indication: Urinary Tract Infection(UTI ) / Infection 750 mg 100 mL/hr New Bag 09/05/2017 8:17 AM CDT 750 mg 100 mL/hr New Bag 09/04/2017 9:14 AM CDT 09/05/2017 3:34 AM CDT 1 mg LORazepam (ATIVAN) 2 mg/mL injection 1 Given mg 1 mg, IV, ONE TIME ONLY, 1 dose, 09/05/17 at 0330, Routine 09/06/2017 1:44 PM CDT 1 mg LORazepam (ATIVAN) tablet 1 mg Given 1 mg, Oral, EVERY 12 HOURS, First dose on 09/05/17 at 1145, Until Discontinued, Routine 1 mg Given 09/05/2017 10:58 PM CDT 1 mg Given 09/05/2017 11:41 AM CDT 09/06/2017 1:45 PM CDT 30 mL magnesium hydroxide (MILK OF MAGNESIA) Given oral suspension 30 mL 30 mL, Oral, DAILY PRN, Starting Wed09/03/17 at 1617, Until Wed09/06/17 at 2038, Constipation, Routine 09/06/2017 3:22 PM CDT 400 mg magnesium oxide (MAG-OX) tablet 400 mg Given 400 mg, Oral, THREE TIMES DAILY WITH MEALS, First dose on Wed09/05/17 at 1200, Until Discontinued, Routine 400 mg Given 09/06/2017 8:08 AM CDT 400 mg Given 09/05/2017 4:36 PM CDT 09/06/2017 8:09 AM CDT 12.5 mg metoprolol succinate (TOPROL XL) SR 24 Given hour tablet 12.5 mg 12.5 mg, Oral, DAILY, First dose on Wed09/05/17 at 1145, Until Discontinued, Routine 12.5 mg Given 09/05/2017 12:08 PM CDT 2017 5:14 PM CDT 2 mg morphine 4 mg/mL injection 2 mg Given 2 mg, IV, ONE TIME ONLY, 1 dose, Wed09/03/17 at 1700, Stat 09/06/2017 8:10 AM CDT 2 mg morphine 4 mg/mL injection 2 mg Given 2 mg, IV, EVERY 3 HOURS PRN, Starting Wed09/03/17 at 1916, Until Mon 7 at 2037, Pain (See admin instructions), Routine 2 mg Given 09/06/2017 5:25 AM CDT 2 mg Given 09/06/2017 2:15 AM CDT naloxone (NARCAN) 0.4 mg/mL injection 0.1 mg 0.1 mg, IV, SEE ADMIN INSTRUCTIONS, Starting Wed09/03/17 at 1617, Until Mo n 09/06/17 at 2037, Routine 09/04/2017 10:05 AM CDT 0.01 mcg/kg/min 2.6 mL/hr norepinephrine (LEVOPHED) 4 mg in Rate Change dextrose 5% 250 mL infusion 0.05 mcg/kg/min 70.3 kg (13.1813 mL/hr, rounded to 13.2 mL/hr), IV, at 13.2 mL/hr, TITRATE, Starting Wed09/03/17 at 1700, Until Meredith n 09/05/17 at 1127, Should this infusion be titrated? Yes, Is this a CABG patient? No, Titration Dose Increment? 0.05 mcg/kg/min, Titration Interval? 10 minutes, Goal Type? SBP Goal, MAP Goal, SBP Goal? Greater than 90, MAP Goal? Greater than 65, First Provider Notification? 1 mcg/kg/min, Second Provider Notification? 2 mcg/kg/min 0.03 mcg/kg/min 7.9 mL/hr Rate Change 2017 9:39 PM CDT 0.02 mcg/kg/min 5.3 mL/hr Rate Change 2017 6:48 PM CDT 09/04/2017 6:24 PM CDT 4 mg ondansetron (ZOFRAN) 4 mg/2 mL injection Given 4 mg 4 mg, IV, POST-PROCEDURE ONCE PRN, 1 dose, Starting 09/04/17 at 1726, Until 09/04/17 at 1824, Nausea/Emesis, Routine, PACU ondansetron (ZOFRAN) 4 mg/2 mL injectio n 4 mg 4 mg, IV, EVERY 6 HOURS PRN, Starting 09/05/17 at 1052, Until Mon 7 at 2038, Nausea/Emesis, Routine 09/06/2017 8:08 AM CDT 40 mg pantoprazole (PROTONIX) injection 40 mg Given 40 mg, IV, DAILY, First dose on 09/04/17 at 0900, Until Discontinued, Routine 40 mg Given 09/05/2017 8:18 AM CDT 40 mg Given 09/04/2017 9:03 AM CDT 09/06/2017 8:08 AM CDT 200 mg phenytoin sodium (DILANTIN) extended Given release capsule 200 mg 200 mg, Oral, TWO TIMES DAILY, First dose on 09/05/17 at 1145, Until Discontinued, Routine 200 mg Given 09/05/2017 9:14 PM CDT 200 mg Given 09/05/2017 12:08 PM CDT 09/04/2017 6:37 PM CDT 6.25 mg promethazine (PHENERGAN) injection 6.25 Given mg 6.25 mg, IV, ONE TIME ONLY, 1 dose, 09/04/17 at 1845, Stat PROMETHAZINE 25 MG/ML INJECTION SOLUTIO N (CABINET OVERRIDE) 1 dose, Starting 09/04/17 at 1830, Until 09/04/17 at 1837, Mitchel SOSA: cabinet override, 09/05/2017 4:13 AM CDT 10 mL sodium chloride 0.9 % flush injection 10 Given mL 10 mL, IV, EVERY 12 HOURS PRN, Starting Wed09/03/17 at 1623, Until Wed 7 at 2037, Other (See Comment), as needed , Routine 10 mL Given 09/05/2017 3:35 AM CDT 10 mL Given 09/05/2017 12:31 AM CDT 09/04/2017 9:08 AM CDT 1,000 mL 2000 mL/hr sodium chloride 0.9% bolus solution New Bag 1,000 mL 1,000 mL, IV, ONE TIME ONLY, 1 dose, Sa t 09/04/17 at 0845, at 2,000 mL/hr, Administer over 30 Minutes, Routine 2017 5:53 PM CDT 100 mL 6000 mL/hr sodium chloride 0.9% bolus solution 100 New Bag mL 100 mL, IV, ONE TIME ONLY, 1 dose, Wed09/03/17 at 1745, at 6,000 mL/hr, Administer over 1 Minutes, Routine 09/04/2017 6:33 PM CDT 30 mL/hr sodium chloride 0.9% infusion New Bag IV, at 30 mL/hr, CONTINUOUS, Starting Wed09/03/17 at 1630, Until Wed 7 at 2037, Routine 30 mL/hr New Bag 2017 5:16 PM CDT 09/05/2017 5:00 PM CDT 0.4 mg tamsulosin (FLOMAX) SR 24 hour capsule Given 0.4 mg 0.4 mg, Oral, DAILY WITH SUPPER, First dose on 09/05/17 at 1700, Until Discontinued, Routine 09/06/2017 1:45 PM CDT 1 Tablet therapeutic multivitamin (THERA TAB) Given tablet 1 Tablet 1 Tablet, Oral, DAILY AFTER LUNCH, Firs t dose on 09/05/17 at 1300, Until Discontinued, Routine 1 Tablet Given 09/05/2017 12:08 PM CDT 09/05/2017 10:58 PM CDT 5 mg zolpidem (AMBIEN) tablet 5 mg Given 5 mg, Oral, NIGHTLY PRN, Starting Wed09/05/17 at 1137, Until Wed09/06/17 at 2037, Insomnia, Routine documented in this encounter
--- OUTSIDE RECORDS SUMMARY | 2020-03-24 13:42 | XMS REPORT | Encounter Summary ---
Author Author [facility] [place], [place], [facility] Organization [facility] [place], Jose Cruz, [facility] Address Unknown Phone Unavailable Care Team Providers Care French Binder Name Role Phone Shahram Mccallum MD PCP Reason for Visit * Reason Comments Follow Up Encounter Details Care Team Description Date Type Department Walter Oconnor MD 100 [facility] [address] [place] [phone] COPD (chronic obstructive pulmonary dise ase) (Primary Dx); Coronary artery disease involving [place] coronary artery without angina pectoris; Peripheral arterial disease; Essential hypertension; Hyperlipidemia LDL goal < 70; Depression; Dyspnea 05/20/2015 Office Visit [facility] [address] [place] [phone] Social History Date Tobacco Use Types Packs/Day Years Used Never Smoker Drinks/Week oz/Week Comments Alcohol Use No Sex Assigned at Date Recorded Not on file Industry Job Start Date Occupation Not on file Not on file Not on file Travel End Travel History Travel Start No recent travel history available. documented as of this encounter Last Filed Vital Signs Reading Time Taken Comments Vital Sign 112/60 05/20/2015 9:18 AM CDT Blood Pressure 80 05/20/2015 9:18 AM CDT regular Pulse - - Temperature 18 05/20/2015 9:18 AM CDT Respiratory Rate - - Oxygen Saturation - - Inhaled Oxygen Concentration 86.6 kg (191 lb) 05/20/2015 9:18 AM CDT Weight 167.6 cm (5' 6") 05/20/2015 9:18 AM CDT Height 30.83 05/20/2015 9:18 AM CDT Body Mass Index documented in this encounter Progress Notes * Walter Oconnor MD - 05/20/2015 9:31 AM CDT HISTORY OF PRESENT ILLNESS Oliverio Dalton, a 64 y.o. male. Subjective HPI The medical record reflects the History of Present Illness as obtained by myself in discussion with the patient. The patient presents for follow-up of coronary artery disease. Since the last vi sit he has not had chest pain; he is chronically short of breath. He denies any other new cardiac symptoms. His medications and most recent lab have been revi ewed. He is scheduled for repeat lab work 06/22. He is under a lot of stress righ t now due to his best friend being critically ill. The patient's past medical, social and family history have been reviewed. 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 loratadine (CLARITIN) 10 mg Oral tablet Take 10 mg by mouth daily. phenytoin (DILANTIN) 200 mg Oral Cap Take 200 mg by mouth 2 times daily. fenofibrate nanocrystallized (TRICOR) 145 mg Oral tablet Take 145 mg by mout h daily. ezetimibe (ZETIA) 10 mg Oral tablet Take 10 mg by mouth daily at bedtime. ramipril (ALTACE) 10 mg Oral capsule Take 10 mg by mouth daily with lunch. simvastatin (ZOCOR) 40 mg Oral tablet Take 40 mg by mouth daily at bedtime. fluticasone (FLOVENT HFA) 110 mcg/actuation Inhalation Aero [...] 81 mg by mouth daily with breakfast. magnesium oxide 250 mg Oral Tab Take 250 mg by mouth 3 times daily with meal s. esomeprazole (NEXIUM) 20 mg Oral CpDR Take 20 mg by mouth daily before break fast. multivitamin (DAILY-DAVID) Oral tablet Take 1 Tab by mouth daily after lunch. metoprolol succinate ER 24 hour (TOPROL-XL) 25 mg Oral tablet Take 12.5 mg b y mouth daily. No current facility-administered medications on file prior to visit. REVIEW OF SYSTEMS Review of Systems Constitutional: Negative for fever, activity change and fatigue. HENT: Negative for congestion and trouble swallowing. Eyes: Negative for visual disturbance. Respiratory: Negative for apnea, cough, chest tightness, shortness of breath and wheezing. Cardiovascular: Negative for chest pain, palpitations and leg swelling. Gastrointestinal: Negative for nausea, vomiting, abdominal pain, diarrhea, const ipation and blood in stool. Genitourinary: Negative for dysuria, urgency, frequency and hematuria. Musculoskeletal: Positive for arthralgias and gait problem. Negative for back pa in and joint swelling. Skin: Negative for color change, pallor and rash. Neurological: Negative for dizziness, syncope, facial asymmetry, speech difficul ty, weakness, light-headedness and headaches. Hematological: Does not bruise/bleed easily. Psychiatric/Behavioral: Negative for suicidal ideas, behavioral problems and con fusion. Objective PHYSICAL EXAM BP 112/60 mmHg | Pulse 80 | Resp 18 | Ht 5' 6" (1.676 m) | Wt 191 lb (86.637 kg) | BMI 30.84 kg/m2 Physical Exam Constitutional: He is oriented to [...] and no friction rub. No murmur heard. Pulmonary/Chest: Effort normal. No respiratory distress. He [...] has normal strength. No cranial nerve deficit. Gait abnormal. cane Skin: Skin is warm and dry. No rash noted. No erythema. Psychiatric: He has a normal mood and affect. Judgment normal. Assessment ASSESSMENT and PLAN: ICD-9-CM ICD-10-CM 1. COPD (chronic obstructive pulmonary disease) 496 J44.9 2. Coronary artery disease involving [place] coronary artery without angina pecto ris 414.01 I25.10 3. Peripheral arterial disease 443.9 I73.9 4. Essential hypertension 401.9 I10 5. Hyperlipidemia LDL goal < 70 272.4 E78.5 6. Depression 311 F32.9 7. Dyspnea 786.09 R06.00 Same meds Lab reviewed No refills needed 9 month return documented in this encounter Plan of Treatment Not on filedocumented as of this encounter Visit Diagnoses Diagnosis COPD (chronic obstructive pulmonary dis ease) - Primary Chronic airway obstruction, not elsewhe re classified Coronary artery disease involving nativ e coronary artery without angina pectoris Peripheral arterial disease Unspecified disorders of arteries and a rterioles Essential hypertension Unspecified essential hypertension Hyperlipidemia LDL goal < 70 Other and unspecified hyperlipidemia Depression Depressive disorder, not elsewhere clas sified Dyspnea Other dyspnea and respiratory abnormali ty documented in this encounter
--- OUTSIDE RECORDS SUMMARY | 2020-03-24 13:42 | XMS REPORT | Encounter Summary ---
Author Author [facility], [place], [place], [place], [facility] Organization [facility], [place], [place], [place], [facility] Address Unknown Phone Unavailable Care Team Providers Care Kitchen Chef Name Role Phone Shahram Mccallum MD PCP Reason for Visit * Reason Comments Medication Review Encounter Details Care Team Description Date Type Department Kaushik Marsh RN Medication Review 01/02/2013 Telephone [facility]-Medical [facility] [address] [facility] [place] [phone] Social History Date Tobacco Use Types Packs/Day Years Used Never Assessed Sex Assigned at Date Recorded Not on file Industry Job Start Date Occupation Not on file Not on file Not on file Travel End Travel History Travel Start No recent travel history available. 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
--- OUTSIDE RECORDS SUMMARY | 2020-03-24 13:42 | XMS REPORT | Encounter Summary ---
Author Author [facility] [place], [place], [place], [facility] Organization [facility] [place], [place], [facility] Address Unknown Phone Unavailable Care Team Providers Care Ambulatory Care Coordinator Name Role Phone Shahram Mccallum MD PCP Encounter Details Care Team Description Date Type Department Provider, Abstract Spg 09/15/2012 Abstract [facility] Care-Medical Bldg [address] [facility] [place] [id number] Social History Date Tobacco Use Types Packs/Day [...]
--- OUTSIDE RECORDS SUMMARY | 2020-03-24 13:42 | XMS REPORT | Encounter Summary ---
Author Author [facility], [place], Jose Cruz, [facility] Organization [facility] [place], Jose Cruz, Mary D Shayne Address Unknown Phone Unavailable Care Team Providers Care Family Readiness Support Assistant Name Role Phone Shahram Mccallum MD PCP Reason for Visit * Reason Comments Follow Up Encounter Details Care Team Description Date Type Department Walter Oconnor MD 100 [facility] [address] [place] [phone] Peripheral arterial disease (Primary Dx) ; Other emphysema; Coronary artery disease involving [place] coronary artery of [place] heart without angina pectoris; Hyperlipidemia with target LDL less than 70; Essential hypertension 02/19/2016 Office Visit [facility] [address] [place] [phone] [...] Signs Reading Time Taken Comments Vital Sign 118/62 02/19/2016 10:19 AM CDT Blood Pressure 60 02/19/2016 10:19 AM CDT Pulse - - Temperature 20 02/19/2016 10:19 AM CDT Respiratory Rate - - Oxygen Saturation - - Inhaled Oxygen Concentration 89.4 kg (197 lb) 02/19/2016 10:19 AM CDT Weight 167.6 cm (5' 6") 02/19/2016 10:19 AM CDT Height 31.8 02/19/2016 10:19 AM CDT Body Mass Index documented in this encounter Progress Notes * Walter Oconnor MD - 02/19/2016 10:23 AM CDT HISTORY OF PRESENT ILLNESS Oliverio Dalton, a 65 y.o. male presents with a Chief Complaint of Follow Up Subjective HPI The medical record reflects the History of Present Illness as obtained by myself in discussion with the patient. The patient presents for follow-up of PAD/CAD/HTN/HLD/Chronic chest pain. Since the last visit he has had noncardiac chest pain; he has mild chronic shortness of breath that is unchanged. He denies any other new cardiac symptoms. His medi cations and most recent lab have been reviewed. Lab is done in [facility]. Edilberto ortiz on to [facility] and reviewed them. The lipids are managed by his primary. The patient's past medical, social and family history have been reviewed. Current Outpatient Prescriptions on File Prior to Visit Medication Sig Dispense Refill OLANZapine (ZYPREXA) 2.5 mg tablet Take 2.5 mg by mouth daily at bedtime. LORazepam (ATIVAN) 1 mg tablet Take 1 mg by mouth every 12 hours. traZODone (DESYREL) 50 mg tablet Take 50 mg by mouth daily at bedtime. 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 loratadine (CLARITIN) 10 mg Oral tablet Take [...] 40 mg by mouth daily at bedtime. nitroglycerin (NITROSTAT) 0.4 mg Tablet, Sublingual Place 0.4 mg under tongu e every 5 minutes as needed for Chest Pain. No current facility-administered medications on file prior [...] urgency, frequency and hematuria. Musculoskeletal: Positive for back pain and gait problem. Negative for joint swe lling and arthralgias. Skin: Negative for color change, pallor and rash. Neurological: Negative for dizziness, syncope, facial asymmetry, speech difficul ty, weakness, light-headedness and headaches. Hematological: Does not bruise/bleed easily. Psychiatric/Behavioral: Negative for suicidal ideas, behavioral problems and con fusion. Objective PHYSICAL EXAM BP 118/62 mmHg | Pulse 60 | Resp 20 | Ht 5' 6" (1.676 m) | Wt 89.359 kg (197 lb) | BMI 31.81 kg/m2 Physical Exam Constitutional: He is oriented [...] Assessment ASSESSMENT and PLAN: ICD-9-CM ICD-10-CM 1. Peripheral arterial disease 443.9 I73.9 2. Other emphysema 492.8 J43.8 3. Coronary artery disease involving [place] coronary artery of [place] heart with out angina pectoris 414.01 I25.10 4. Hyperlipidemia with target LDL less than 70 272.4 E78.5 5. Essential hypertension 401.9 I10 Same meds Lab per primary Echo in [place] Discuss alternative lipid treatment; he will discuss with his primary at the nex t visit 1 year return for now pending echo result documented in this encounter Plan of Treatment Not on filedocumented as of this encounter Visit Diagnoses Diagnosis Peripheral arterial disease - Primary Unspecified disorders of arteries and a rterioles Other emphysema Coronary artery disease involving nativ e coronary artery of [place] heart without angina pectoris Hyperlipidemia with target LDL less modesto n 70 Other and unspecified hyperlipidemia Essential hypertension Unspecified essential hypertension documented in this encounter
--- OUTSIDE RECORDS SUMMARY | 2020-03-24 13:42 | XMS REPORT | Encounter Summary ---
Author Author [facility], [place], [place], [facility] Organization [facility], [place], [place] Shayne Address Unknown Phone Unavailable Care Team Providers Care Medical Practice Assistant Name Role Phone Shahram Mccallum MD PCP Encounter Details Care Team Description Date Type Department Ambulance, [place] 2017 [facility] León ramsay Encounter 100 [place] [phone] Social History Date Tobacco Use Types Packs/Day [...] tablet hours as needed for Pain, Moderate. 2012 09/06/2017 levofloxacin (LEVAQUIN) Take 1 Tab by 6 Tab 0 500 mg Oral tablet mouth daily at bedtime. 09/06/2017 aspirin (AMELIA) 81 mg Take 81 mg by 0 Oral Tab mouth daily with breakfast. 07/09/2018 zolpidem (AMBIEN) 10 mg Take 10 mg by 0 Oral tablet mouth nightly as needed. 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 09/06/2017 ramipril (ALTACE) 10 mg Take 10 mg by 0 Oral capsule mouth daily with lunch. documented as of this encounter Plan of Treatment Not on filedocumented as of this encounter Visit Diagnoses Not on filedocumented in this encounter
--- OUTSIDE RECORDS SUMMARY | 2020-03-24 13:42 | XMS REPORT | Encounter Summary ---
Author Author [facility] [place], [facility] Organization [facility] [place], Jose Cruz, [facility][Note 3] Address Unknown Phone Unavailable Care Team Providers Care Apron Operator Name Role Phone Claus Couch MD PCP Reason for Visit * Auth/Cert Referred By Contact Referred To Contact Status Reason Specialty Diagnoses / Procedures Jo 4 Intensive Care Unit 100 [facility] [place] [address] Critical Care Diagnoses Medicine Blood clot in bladder Hypotension anemia Hematuria Blood clot in bladder P rocedures CYSTOSCOPY Encounter Details Care Team Description Date Type Department Seth Jane, PRODUCTION WEIGHER 100 [facility] [place] [address] Chu Mascorro, DO 100 [facility] [place] [address] 09/04/2017 Anesthesia [facility] in Event Operating Room 100 [place] [address] Anesthesia Record Responsible Anesthesiologist Anesthesia Start Time Anesthesi a Stop Time Procedure Name Seth Jane, PRODUCTION WEIGHER 09/04/17 1636 09/04/17 1828 CYSTOSCOPY WITH CLOT EVACUATION BLADDER (N/A Bladder) Date Time Event Comment 1452 Quick Note Fentanyl 100 mcg IV 1636 AN Equip Check Anesthesia equipmen t and materials checked in accordance with local policy. 1636 An Start 1636 An Start Data 1636 Pre-Induction Immediate pre-induc tion anesthetic assessment performed. Vital signs as noted on graphic. 1640 An Induction 1641 An LMA 1649 Anesthesia Ready 182 Supraglottic Spontaneous respira tions. LMA discontinued without difficulty. Oropharynx Removed suctioned as indicated. 182 an stop data 1828 An Stop 1407 Follow-up 2017 Complete Meds Name Total EPINEPHrine (ADRENALIN) 1mg/mL 0.02 mg injection ondansetron (ZOFRAN) 4mg/2 mL 4 mg injection dexamethasone (DECADRON) 4 mg/mL 4 mg injection * Name Sevoflurane % Sevoflurane O2 N2O Inspired N2O O2 * No blood administrations on file. Removal Type Details Placement 09/06/17 162 by Anais Pearson RN Peripheral Pre-Hospital Start: No; Orientation: 1 0000 by KRISHNA Amaral Left; Location: Arm; Device: Angiocath; PRIYA Diaz Gauge: 18 gauge; Insertion Attempts: 1 09/06/17 162 by Anais Pearson RN Peripheral Pre-Hospital Start: No; Orientation: 1 0000 by KRISHNA Amaral Right; Location: Arm; Device: Angiocath ; PRIYA Diaz Gauge: 18 gauge; Insertion Attempts: 1; Patient Tolerance: tolerated well 09/06/17 162 by Anais Pearson RN CVC-Triple Present on Admission: No; Orientation: 09/03/17 1657 by Justo Amaral Right:; Location: subclavian vein; Amparo abel RN Insertion Attempts: 1; Patient Tolerance: tolerated well 07/07/18 182 by Agustina Gamez RN Pressure 09/04/17; 0750; Yes; 1; Left:; coccyx; 09/04/17 0750 by Deejay, Kumar Stage 2; 07/07/18; 182 Isha Alvarez RN 07/07/18 182 by Agustina Gamez RN Pressure 09/04/17; 0750; Yes; 2; midline; 09/04 0750 by Deejay, Kumar gluteal; Stage 2; 07/07/18; 182 Isha Alvarez RN 07/07/18 1823 by Agustina Gamez RN Pressure 09/04/17; 0750; Yes; 3; Right:; coccyx; 09/04/17 0750 by Deejay, Injury Stage 2; 07/07/18; 1823 Isha Alvarez RN 09/04/17 1821 by Seth Jane CRNA Supraglott Type: LMA; Confirmation: satisfactory 09/04/17 1622 by volodymyr Jane Airway chest rise, SAO2, end tidal CO2 Seth Holliday CRNA 09/04/17 1821 by Seth Jane CRNA Supraglott Mask Donald: mask ventilation not 7 1641 by volodymyr Jane Airway attempted; Size: 5; Attempts: 1; Tim Holliday CRNA Confirmation: satisfactory chest rise, SAO2, end tidal CO2 09/06/17 0900 by Rosina Durán, PRIYA Retired 09/04/17; 1740; No; Indwelling triple 09/04/17 1740 by Aaron Urethral lumen catheter; 100% silicone; 24 Fr; PRIYA Lujan Catheter inserted; 1; 30; 09/06/17; 0900 documented in this encounter Social History Date Tobacco Use Types Packs/Day Years Used Never Assessed Sex Assigned at Date Recorded Not on file Industry Job Start Date Occupation Not on file Not on file Not on file Travel End Travel History Travel Start No recent travel history available. documented as of this encounter OR Notes * Anesthesia Post-Op Follow-up Note - Kishan Ro MD - 09/05/2017 2:08 PM CDT Anesthesia Post - Op Evaluation: Vitals: 09/05/17 1300 BP: 114/57 Pulse: Resp: 19 Temp: SpO2: 99% Respiratory Function: normal Cardiac Function: stable Mental Status: awake and alert; oriented to person, place, and time Pain: controlled Nausea/ Vomiting: none Post Procedure Hydration:adequate No anesthesia complications noted. Satisfactory post anesthesia course. Kishan Ro MD * Anesthesia Postprocedure Evaluation - Chu Mascorro DO - 09/04/2017 8:51 PM CDT Post Anesthesia Evaluation Vitals: BP 124/58 | Pulse 85 | Temp 36.6 C (Oral) | Resp 16 | Ht 5' 5" (1 .651 m) | Wt 70.3 kg (154 lb 15.7 oz) | SpO2 97% | BMI 25.79 kg/m Pain Rating: Pain Rating: Rest: 0 (09/04/17 1600) Pain Rating: Activity: 0 (09/04/17 1600) Post op pt reports minimal pain. Awake and alert answering questions appropriate ly in OR bed. Nausea/Vomiting: no nausea and no vomiting Post-Op hydration: well hydrated Respiratory function: no respiratory symptoms Airway patency: normal Cardiovascular function: Normal - Regular rate and rhythm Mental status, LOC: 0=alert; keenly responsive Patient participated in evaluation: yes Unanticipated Events: no Chu Mascorro DO * Anesthesia Preprocedure Evaluation - Kishan Ro MD - 2017 9:33 PM CDT Relevant Problems (+) CAD (coronary artery disease) (+) COPD (chronic obstructive pulmonary disease) (+) Dyspnea, chronic (+) Hypertension Anesthesia Evaluation Patient summary reviewed Airway Mallampati: III TM distance: >3 FB Neck ROM: limited Dental (+) upper dentures and lower dentures Pulmonary - normal exam breath sounds clear to auscultation (+) COPD moderate, shortness of breath, (-) rhonchi Cardiovascular Exercise tolerance: poor (+) hypertension, past AK, CAD, CABG/stent (4 vessel bypass. 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 Anesthesia Plan ASA 4 General (Consented for General with LMA Multiple drug allergies/sensitivities) Intravenous induction Supraglottic airway maintenance NPO status > 8 hours Anesthetic plan and risks discussed with Patient. Plan discussed with Nurse Cloud Infrastructure Architect. Post-op Pain Control Plan to use IV or IM medication and Per surgeon for post-op pain control. Plan for postoperative opioid use Smoking Compliance Patient did not smoke on day of surgery Discussed potential complications, as well as those of worsening TMJ and injury to teeth/gums/lips. The patient was in agreement. documented in this encounter Miscellaneous Notes * Addendum Note - Seth Jane CRNA - 09/07/2017 10:03 AM CDT Addendum created 09/07/17 1003 by Seth Jane CRNA Anesthesia Event edited * Addendum Note - Kishan Ro MD - 09/05/2017 2:08 PM CDT Addendum created 09/05/17 1408 by Kishan Ro MD Anesthesia Event edited, Sign clinical note documented in this encounter Plan of Treatment Not on filedocumented as of this encounter Visit Diagnoses Not on filedocumented in this encounter Administered Medications Action Date Dose Rate Site Medication Order MAR Action 09/04/2017 6:14 PM CDT 4 mg dexamethasone (DECADRON) injection Given INTRA-PROCEDURE PRN, Starting 09/04/17 at 1814, Until 09/04/17 at 2051, Routine, Anesthesia Intra-op 09/04/2017 5:15 PM CDT 0.01 mg EPINEPHrine (ADRENALINE) 1 mg/mL (1 mL) Given injection INTRA-PROCEDURE PRN, Starting 09/04/17 at 1656, Until 09/04/17 at 2051, Routine, Anesthesia Intra-op 0.01 mg Given 09/04/2017 4:56 PM CDT 09/04/2017 6:14 PM CDT 4 mg ondansetron (ZOFRAN) 4 mg/2 mL injection Given INTRA-PROCEDURE PRN, Starting 09/04/17 at 1814, Until 09/04/17 at 2051, Nausea/Emesis, Routine, Anesthesi a Intra-op documented in this encounter
--- OUTSIDE RECORDS SUMMARY | 2020-03-24 13:42 | XMS REPORT | Encounter Summary ---
Author Author [facility], [place], [place], [place], [facility] Organization [facility] [place], [place], [place], [facility] Address Unknown Phone Unavailable Care Team Providers Care Benzol Still Operator Name Role Phone Shahram Mccallum MD PCP Reason for Visit * Reason Comments Surgical Clearance Encounter Details Care Team Description Date Type Department Kaushik Marsh RN Surgical Clearance 01/03/[address] [facility] Heart Care-Medical Bl [address] [facility] [place] [phone] Social History Date Tobacco Use Types Packs/Day Years Used Never Assessed Sex Assigned at Date Recorded Not on file Industry Job Start Date Occupation Not on file Not on file Not on file Travel End Travel History Travel Start No recent travel history available. documented as of this encounter Miscellaneous Notes * Telephone Encounter - Kaushik Kan RN - 01/03/2013 3:03 PM [employer] Spoke with Ning from [facility] about MR. Dalton's surgical clearance she st ated she never received the fax. I told her I had faxed it yesterday and again t yessica. She went and checked her fax machine and found both copies. [employer] * Telephone Encounter - Kaushik Kan RN - 01/03/2013 3:03 PM [employer] Message copied by KAUSHIK KAN on WedJan 03, 2013 3:03 PM ------ Message from: JULIENNE WAGNER Created: WedJan 03, 2013 12:57 PM Contact: Dr AndersonHlbbzum-[phone] fax [phone] Was given a verbal yesterday for Cardiac Clearance but needs it in writing today please. Pt is scheduled for surgery and they need it in writing before she calls the pt. Thanks! [employer] documented in this encounter Plan of Treatment Not on filedocumented as of this encounter Visit Diagnoses Not on filedocumented in this encounter
--- OUTSIDE RECORDS SUMMARY | 2020-03-24 13:42 | XMS REPORT | Encounter Summary ---
Author Author [facility], [place], [place], [place], [facility] Organization [facility] [place], [place], [place], [facility] Address Unknown Phone Unavailable Care Team Providers Care Ux Architect Name Role Phone Shahram Mccallum MD PCP Reason for Visit * Reason Comments Medication Review Encounter Details Care Team Description Date Type Department Kaushik Marsh RN Medication Review 01/02/2013 Telephone [facility] Heart Care-Medical Bl [address] [facility] [place] [phone] Social History Date Tobacco Use Types Packs/Day Years Used Never Assessed Sex Assigned at Date Recorded Not on file Industry Job Start Date Occupation Not on file Not on file Not on file Travel End Travel History Travel Start No recent travel history available. documented as of this encounter Miscellaneous Notes * Telephone Encounter - Kaushik Kan RN - 01/02/2013 10:24 AM [facility] Ning at [address] called to ask if Mr. Dalton needed to hold his plavix bef ore his surgery. I instructed her that he would need to hold it 3 days prior to surgery. [facility] * Telephone Encounter - Kaushik Kan RN - 01/02/2013 10:24 AM [facility] [employer] Message copied by KAUSHIK KAN on WedJan 02, 2013 10:24 AM ------ Message from: ANTONIETA RAPHAEL Created: WedJan 02, 2013 8:30 AM Contact: ning/ [phone] Pt having carpal tunnel surgery Wednesday needs to know if he is to be off his Plavix if so for how long. RAN[facility] documented in this encounter Plan of Treatment Not on filedocumented as of this encounter Visit Diagnoses Not on filedocumented in this encounter
--- OUTSIDE RECORDS SUMMARY | 2020-03-24 13:42 | XMS REPORT | Encounter Summary ---
Author Author [facility] [place], [place], [facility] Organization [facility] [place], [place], [facility] Address Unknown Phone Unavailable Care Team Providers Care Restaurant Bartender Name Role Phone Shahram Mccallum MD PCP Encounter Details Care Team Description Date Type Department Walter Oconnor MD [address] [facility] [phone] [place] [phone] 12/28/2012 Abstract [facility] Heart Care-Medical Bldg [address] [facility] [place] [phone] Social History Date Tobacco Use Types Packs/Day [...]
--- OUTSIDE RECORDS SUMMARY | 2020-03-24 13:42 | XMS REPORT | Encounter Summary ---
Author Author [facility] [place], Jose Cruz, [facility] Satellite Organization [facility] [place], Jose Cruz, [place] Address Unknown Phone Unavailable Care Team Providers Care Business Services Vice President Name Role Phone Claus Couch MD PCP Reason for Visit * Auth/Cert Referred By Contact Referred To Contact Status Reason Specialty Diagnoses / Procedures Jo 4 Intensive Care Unit [address] [place] [address] Critical Care Diagnoses Medicine Blood clot in bladder Hypotension anemia Hematuria Blood clot in bladder P rocedures CYSTOSCOPY Encounter Details Care Team Description Date Type Department Walter Tinsley MD 100 [facility] [address] [place] [address] CYSTOSCOPY WITH CLOT EVACUATION BLADDER 09/04/2017 Surgery [facility] in Operating Room [address] [place] [address] Social History Date Tobacco Use Types [...] Abraham MD - 09/06/2017 6:33 PM CDT [facility] Medical Discharge Summary Oliverio Tinsley 67 y.o. male 1950 CSN: [id number] Date of Admission: 2017 Date of Discharge: [...] 67 y.o. male who was admitted to [facility] on for acute blood anemia and hemorrhagic [...] may have preceeded admissio n) Recent Labs 09/03/17195209/04/17 0054 09/04/17 0449 09/04/17 0526 09/04/17 1202 [...] 68.4 kg (150 lb 12.7 oz) (09/05/17 0459) Physical Exam: General Alert, oriented, no acute [...] As directed Primary Emergency Contact: HELLEN VELOZ, [place] Signed: Yoshi Abraham MD This discharge took [...] him. I have called her: Ferny Tinsley [phone], and she is on her way here. [...] him go ing home today. Audrey Witt senior media planner [phone] * Shahram Michel MD - 09/06/2017 2:05 [...] Intake 1200 ml Output 3225 ml Net -2025 ml OBJECTIVE: General Appearance: Resting comfortably and [...] for hematuria and syncope. Pt presented to [facility] after passing out at wound clini c. He reports hematuria and has been taking antibiotic for UTI. Pt was in shock with hemoglobin of 5.6 at OSH. Received fluid bolus and transferred to [facility] ICU for further care. He was transfused PRBC's. Levophed started for hyp otension. Urology consulted. 09/04/[address] Tinsley. Pt on continuous bladder irrigation, off vasopressors with stable H/H today. Ok to transfer to floor per vacuum drum drier operator under hospitalist service. ROS - Constitutional- No [...] Sig: Take 60 mg by mouth daily armature winder repairer. levofloxacin (LEVAQUIN) 500 mg Oral tablet No [...] Lives alone with his dog. Has daily quick technician Does not drive Objective BP 127/67 | [...] Jacques MD - 09/05/2017 10:47 AM CDT Pulmonary/CC/Apartment Maintenance Technician Progress Note Admit Date: 2017 24hr summary: [...] 1508 09/03/17195209/04/17 0054 09/04/17 0449 09/04/17 1202 09/04/17202609/05/17 0027 09/05/17 0404 WBC 10.9 9.4 -- 8.2 -- -- -- 7.7 HGB 6.4* 6.6* 7.9* 8.0* 7.9* 8.5* 8.2* 8.1* HCT 20.6* 21.4* 25.0* 24.5* 24.7* 26.2* 25.7* 24.8* PLT 561* 613* -- 428 -- -- -- 399 MCV 83.4 84.6 -- 83.6 -- -- -- 86.1 BMP: Recent Labs 09/03/17 1508 09/03/17195209/04/179 09/05/17 0404 GLUCOSE 214* 171* 171* 125* [...] ALBUMIN 2.9* 2.7* Coagulation: Recent Labs 09/03/17195209/04/17 05 PT 16.8* 17.3* INR 1.4* 1.4* CIE: Lab Results Component Value Date/Time CKMB 2.1 2012 04:23 AM CKMB 2.0 09/02/2012 11:20 PM CKMB 2.8 09/02/2012 03:25 PM TROPONIN I <0.06 2012 04:23 AM TROPONIN I <0.06 09/02/2012 11:20 PM TROPONIN I <0.06 09/02/2012 03:25 PM ABGs: Recent Labs 09/03/17 1721 PHARTERIAL 7.40 RXC2GRG 36 PO2ART 102 ZZY2HMO 22 BASEEXCESS -2.4* Glucose: Recent Labs 09/04/17 [...] Bay MD - 09/05/2017 3:44 AM CDT [employer] Cross Cover Call Discussed with nurse by telephone. Ativan 1 mg intravenously was ordered for the management of an impending panic a ttack. David Bay MD, [facility] [employer] * Walter Tinsley MD - 09/04/2017 3:11 [...] well as risks and possible complications. * DomingoNayely, RD - 09/04/2017 10:30 AM CDT Clinical [...] 750 mg 750 mg IV q 24 Timo Dexter MD 100 mL/hr at 09/04/17 0914 750 [...] PRN Walter Tinsley MD 1 Suppository at 09/04/17 0725 Anthropometrics: Height: 5' 5" (165.1 cm) (09/03/17 1500) Admit Weight: 70.3 kg (154 lb 15.7 oz) (09/03/17 1500) Current Weight: 70.3 k g (154 lb 15.7 oz) (09/03/17 1500) IBW 136# 61.8kg IBW% 114 % ABW [...] jury Wound Base: moist;pink (09/04/17749) Pressure Injury 09/04/17749 2 midline gluteal Stage 2-Pressure Injury Wound Ba se: moist;pink (09/04/17749) Pressure Injury 09/04/17749 3 Right: coccyx Stage 2-Pressure Injury Wound [...] to recheck med plan and MNT julia ance Pager #: [phone] * Timo Jacques MD - 09/04/2017 8:09 AM CDT Pulmonary/CC/Apartment Maintenance Technician Progress Note Admit Date: 2017 24hr summary: [...] Intake/Output Summary (Last 24 hours) at 09/04/17 08 Last data filed at 09/04/17 0729 Gross [...] Labs 09/03/17 1508 09/03/17195209/04/17 0054 09/04/17 0449 WBC 10.9 9.4 -- 8.2 HGB 6.4* 6.6* 7.9* 8.0* HCT 20.6* 21.4* 25.0* 24.5* PLT 561* 613* -- 428 MCV 83.4 84.6 -- 83.6 BMP: Recent Labs 09/03/17 1508 09/03/17195209/04/179 GLUCOSE 214* 171* 171* BUN 18 14 [...] ABGs: Recent Labs 09/03/17 1721 PHARTERIAL 7.40 CIQ8GEP 36 PO2ART 102 EYR4EZT 22 BASEEXCESS -2.4* Glucose: Recent Labs 09/03/17195109/04/17 [...] yet Critical Care Time: 30 min Timo Jacques MD * Isha Villalba RN - 09/04/2017 7:50 AM CDT Three POA stage 2 pressure injuries to coccyx, see flow sheet for measurements. Bilateral heels intact, slow to raymundo, bordered mepilex placed. Orders entered into [facility]. [facility] ext# [phone] * David Bay MD - [...] the chart. The patient has no known islam prohibitions against blood transfusions. One unit of packed red blood cells was ordered. David Bay MD, [facility] [employer] 10:10 PM [facility] Cross Cover Call Discussed with nurse by telephone. He has worsening abdominal pain and tendern ess and ongoing gross hematuria. The in house physician and urologist will be n otified. David aBy MD, [facility] documented in this encounter H&P Notes * Timo Jacques MD - 2017 3:41 PM CDT Chief Complaint: syncope, hemeturia History of Present Illness: Oliverio Tinsley is a 67 y.o. male with PMH CAD, HTN, COPD Home medications include plavix Presented to [facility] after passing out at wound clinic Has been having hemeturia Was being treated with out patient antibiotics for UTI Was in shock with hemoglobin of 5.6 at OSH INR was 1.2 Received fluid bolus Transferred to [facility] for further care Prior to [...] tablet Take 60 mg by mouth daily armature winder repairer. Provider, Historical loratadine (CLARITIN) 10 mg Oral [...] Lives alone with his dog. Has daily quick technician Does not drive Family History: Family History [...] PM ABGs: No results for input(s): PHARTERIAL, QWR5XXJ, PO2ART, FNF8XEC, BASEEXCESS, SO2, PUNCSITE in the last 72 [...] 60 min excluding procedure Timo Jacques MD, FCCP documented in this encounter Consult Notes * [...] PMH CAD, HTN, COPD, [facility] at [facility] clinic. He did [...] Take 60 mg by mo uth daily armature winder repairer. loratadine (CLARITIN) 10 mg Oral tablet Take [...] was performed by a radiologist on a [employer] 3D workstation. CONTRAST: IOPAMIDOL 61 % INTRAVENOUS [...] CELLS Result Value Ref Range COMPONENT TYPE Y4234K96 COMPONENT IDENTIFICATION [id number] UNIT ABO A UNIT RH POS COMPONENT STATUS Transfused COMPONENT EXPIRATION DATE/TIME [id number] COMPONENT CODING SYSTEM 6200 TYPE AND SCREEN [...] GLUCOSE 181 (H) 70 - 105 mg/dL PREMIUM NOTE INTEREST CALCULATOR CLERK NAME michael gannon CBC WITH DIFFERENTIAL Result [...] CELLS Result Value Ref Range COMPONENT TYPE I8987C99 COMPONENT IDENTIFICATION [id number] UNIT ABO A UNIT RH POS COMPONENT STATUS Transfused COMPONENT EXPIRATION DATE/TIME COMPONENT CODING SYSTEM 6200 PREPARE FRESH FROZEN PLASMA Result Value Ref Range COMPONENT TYPE S1564T90 COMPONENT IDENTIFICATION [id number] UNIT ABO A UNIT RH POS COMPONENT STATUS Transfused COMPONENT EXPIRATION DATE/TIME COMPONENT CODING SYSTEM 6200 PREPARE FRESH FROZEN PLASMA Result Value Ref Range COMPONENT TYPE A1375W43 COMPONENT IDENTIFICATION [id number] UNIT ABO A UNIT RH POS COMPONENT STATUS Transfused COMPONENT EXPIRATION DATE/TIME COMPONENT CODING SYSTEM 6200 HEMOGLOBIN AND HEMATOCRIT Result Value Ref Range [...] GLUCOSE 199 (H) 70 - 105 mg/dL PREMIUM NOTE INTEREST CALCULATOR CLERK NAME luiza cook URINALYSIS WITH REFLEX CULTURE [...] Tinsley MD - 2017 9:43 PM CDT [facility] [place] [address] NAME: OLIVERIO TINSLEY CSN: [id number] : 1950 PHYSICIAN: Pawan Tinsley MD ADMISSION DATE: 2017 CONSULTATION DATE: 2017 REFERRING PHYSICIAN: Timo Jacques MD, [facility] CHIEF COMPLAINT: Gross hematuria. HISTORY OF [...] a fluid bolus and was transferred to [facility]. He has been admitted to ICU [...] with his dog. He has a daily quick technician and does not drive. FAMILY HISTORY: Otherwise noncontributory. Please see Dr. Jacques's H and P from 2017. REVIEW OF SYSTEMS: Otherwise, noncontributory and please see the H and P and transfer evaluation no mann from [place]. PHYSICAL EXAMINATION: VITAL SIGNS: Blood pressure 102/54, [...] or fluctuance. No bogginess or tenderness. : 16-Beninese silastic Ulloa catheter with reddish colored urine [...] his F oley catheter replaced with a 24-Beninese Ulloa, manually irrigate until clear if possible, [...] No intervention indicated for his renal calculus. MD PRIMITIVO Doyle/sharmila VOICE JOB ID: [id number] DOCUMENT ID: [id number] cc: MD Pawan Doyle MD * Walter [...] 6:48 PM CDT Brief Postoperative Note Oliverio Tinsley [id number] Pre-operative Diagnosis: Blood clot in bladder Post-Op Diagnosis: * No post-op diagnosis entered * Procedure(s) and Anesthesia Type: * CYSTOSCOPY WITH CLOT EVACUATION BLADDER - General * PYELOGRAM RETROGRADE BILATERAL - General Surgeon(s) and Role: * Walter Tinsley MD - Primary Additional CPT Codes: *No additional CPT codes listed in log* Procedure Start: 1700 Procedure End: 1811 Findings: 400+mL mature clot [...] Tinsley MD - 09/04/2017 6:43 PM CDT [facility] [place] [address] NAME: OLIVERIO TINSLEY CSN: [id number] : 1950 ADMISSION DATE: 2017 OPERATIVE REPORT [...] obtaining informed consent, he was brought to [facility] operating room, placed on the operative [...] With a com bination of the Ellik chief of planning and piston syringe and dogged effort, I [...] procedure, there was excel lent hemostasis. A 24-Beninese Ulloa catheter was placed and started with trickle of continuous bladder irrigation that is clear upon leaving the operating room. I used a 5-Beninese open-tipped ureteral catheter and performed bilateral retrogra [...] Pawan Tinsley MD PRIMITIVO/medq VOICE JOB ID: [id number] DOCUMENT ID: [id number] cc: Pawan Tinsley MD * Operative Report - Timo Jacques MD - 2017 5:06 PM CDT Oliverio Cid Sha 67 y.o. male [id number] PROCEDURE: Central Line Placement INDICATION: Shock/ Respiratory [...] Notes * Care Plan - Dilan Schaeffer, Patient Access Coordinator - 09/06/2017 11:15 AM CDT Problem: Physical [...] patient can navigate discharge environment. Outcome: Progressing [facility] Acute Therapy Services Main: Acute: For questions regarding this patient's status or care, please call [phone]. Acute Physical Therapy Treatment 09/06/2017 Room: [address] [place] [address] Name: Oliverio Tinsley Age: 67 y.o. Date of : 1950 Insurance: Payor: [employer] / Plan: [employer] / Product Type: Medicare Capitation / PT Treatment Minutes Therapy Start Time: 0839 (09/06/17 0839) Therapy Stop Time: 0902 (09/06/17 0839) Total Timed Treatment (min): 23 (09/06/17 0839) Total Treatment Time (min): 23 (09/06/17 0839) Confirmed patient's identification of name and date [...] Mobility Training Functional Mobility ( Therapeutic Activity 14407) Rolling: independent Scooting: independent Supine to sit: [...] ADLS and functional transfers. Balance/Safety: Therapeutic Activity 48571 : Safe sit < > stands/ UE [...] thorough chart review was completed, including prior [facility] notes, as applicable. Further treatment notes and therapeutic goals can be found in Care Plan Notes . Thank you for this referral, Dilan Schaeffer Patient Access Coordinator Problem: Impaired Motor Skills Goal: Motor skills goal: Improve motor skills by discharge Patient will display increased strength as evidenced by increased reps, resistan ce, or manual muscle test scores. Outcome: Progressing Electronically signed by Dilan Schaeffer, Patient Access Coordinator at 1 11:15 AM CDT * Care [...] loading techniques or patient moves independently. Met [place] Pathway: Adult and Obstetrics Day 1 Patient, [...] Absence of fall, injury, harm during hospitalization Progressemma aaron Skin Maintain skin integrity and/or promote wound healing by discharge Omar araon * Therapy Evaluation - Allegra Barnard, Physical Therapist - 09/05/2017 10:26 AM CDT [facility] Therapy Services Main: Acute: Acute Physical Therapy Evaluation 09/05/2017 (Evaluation CPT Code--09554) Room: [facility]/ Name: Oliverio Tinsley Age: 67 y.o. [...] activity O2 Sat: 99% BP: 139/73 mmHg [facility] PT Acute Care Functional Outcomes Tool 7 [...] walker Recommendations for referral to another service: outsole caser/care coordinato r and occupational therapy Precautions Weight [...] Next of kin/contact verified as sister, Hellen Baldrerama, contact number . PCP verified as Claus Couch, Urologist: Dr. Baum, Cardiology-Dr. Oconnor. Patient's insurance verified as Medicare/VA medicaid. Patient has prescription coverage: yes Equipment in home of: walker, wheelchair, cane. Discussed discharge goals and possible discharge needs. Transportation on discharge : one of his sisters. Comments: Plans to return home on discharge and resume [facility] in [place], [place]. Care Management will continue to follow and assist as needed. Alexandra Go RN, BSN,CCM, Airport Manager [phone] (ext. [phone]) * Therapy Evaluation - Hayley Mandujano, Physical [...] Diag nosis PROCEDURE PHOTOGRAPHS 09/24/2017 10:20 AM DELINQUENT ACCOUNT CLERK TELEMETRY REPORT 09/08/2017 3:12 PM CDT CBC [...] POC GLUCOSE Routine 09/04/2017 7:42 AM CDT [place] ELECTROCARDIOGRAM, Routine 09/04/2017 COMPLETE 7:25 AM CDT [...] - 1.17 mg/dL [facility] GLUCOSE 143 (H) 74 - 105 mg/dL [facility] LABOR[facility]ORY [facility] - [place] GFR >60 >=60 mL/min/1.73 sq [facility] Comment: meter LABORATORY eGFR has not [...] GFR result. GFR, >60 >=60 mL/min/1.73 sq [facility] IRAQI meter LABORATORY SERVICES - [place] ANION GAP 14 (H) 4 - 13 mmol/L [facility]ORATORY SERVICES - [place] Specimen Blood Performing Organization Address City/State/Zipcode Ph one Number [facility] LABORATORY SERVICES CLIA # [id number] [place] [phone] - [facility] 100 [facility] LABORATORY SERVICES CLIA # [id number] [place] [phone] - [facility] [address] [place] [address] * CBC WITH DIFFERENTIAL (09/06/2017 5:41 AM CDT) [facility] WBC 7.3 4.0 - 11.0 K/uL [facility]ORY [facility] - [facility] RBC 2.78 (L) 4.70 - 6.00 M/uL [facility] LABORATORY SERVICES - [place] HEMOGLOBIN 7.4 (L) 13.5 - 18.0 g/dL [facility] LABORATORY SERVICES - [place] HEMATOCRIT 24.0 (L) 42.0 - 52.0 % [facility] MCV 86.3 78.0 - 100.0 fL [facility] [place] MCH 26.6 (L) 27.0 - 34.0 pg [facility] LABORATORY SERVICES - [place] MCHC 30.8 (L) 31.0 - 37.0 g/dL [facility] LABORATORY SERVICES - [place] RDW 16.7 (H) 12.0 - 15.0 % [facility] [place] RDW-STDEV 52.2 (H) 37.1 - 48.7 fL [facility] - [place] PLATELETS 433 150 - 450 K/uL [facility] - [place] MPV 8.1 (L) 9.3 - 12.4 fL [facility] [place] NEUTROPHILS 71 31 [...] [place] LYMPHOCYTE 1.30 1.00 - 4.80 K/uL [facility] ABSOLUTE LABORATORY SERVICES - [place] MONOCYTE 0.72 0.10 - 1.30 K/uL [facility]UTE [facility] - [place] EOSINOPHIL 0.02 0.00 - 0.70 K/uL [facility] [place] BASOPHILS 0.01 0.00 - 0.20 K/uL [facility] [place] IMMATURE 0.04 0.00 - 0.10 K/uL [facility] GRANUL[facility] ABSOLUTE SERVICES - [place] Specimen Blood Performing Organization Address City/[facility] Ph one [facility] LABORATORY SERVICES CLIA # [id number] [place] [address] - [place] 100 [facility] LABORATORY SERVICES CLIA # [id number] [place] [phone] - [place] 100 [facility] * HEMOGLOBIN AND HEMATOCRIT (09/06/2017 12:27 AM CDT) HEMOGLOBIN 7.3 (L) 13.5 - 18.0 g/dL [facility] LABORATORY SERVICES - [place] HEMATOCRIT 23.1 (L) 42.0 - 52.0 % [facility] LABORATORY SERVICES - [place] Specimen Blood Performing Organization Address City/State/[facility] Ph one Number [employer] LABORATORY SERVICES CLIA # [id number] [place] [address] - [place] 100 [facility] LABORATORY SERVICES CLIA # [id number] [place], [place] [address] - [place] 100 [facility] * HEMOGLOBIN AND HEMATOCRIT (09/05/2017 6:51 PM CDT) [facility] HEMOGLOBIN 7.5 (L) 13.5 - 18.0 g/dL [facility] [place] HEMATOCRIT 24.1 (L) 42.0 - 52.0 % [facility] LABORATORY SERVICES - [place] Specimen Blood Performing Organization Address [facility] one [facility] [employer] [employer] SERVICES CLIA # [id number] [place] [address] - [place] 100 [facility] [place] [employer] SERVICES CLIA # [id number] [place], [place] [address] - [place] 100 [facility] * POC GLUCOSE (09/05/2017 4:23 PM CDT) [facility] POC GLUCOSE 162 (H) 70 - 105 mg/dL [facility] [employer] [employer] [facility] [place] PREMIUM NOTE INTEREST CALCULATOR CLERK NAME beti douglas [facility] [place] [employer] [facility] [place] Specimen Whole blood sample (specimen) Performing Organization Address [facility] [place] [employer] [facility] CLIA # [id number] [place] [address] - [place] 100 [facility] [employer] [employer] SERVICES CLIA # [id number] [place], [place] [address] - [place] 100 [facility] * HEMOGLOBIN AND HEMATOCRIT (09/05/2017 12:09 PM CDT) [facility] HEMOGLOBIN 8.1 (L) 13.5 - 18.0 g/dL [facility] LABORATORY [facility] [place] HEMATOCRIT 25.8 (L) 42.0 - 52.0 % [facility] [employer] [employer] [facility] [place] Specimen Blood Performing Organization Address [facility] one [facility] [employer] [employer] SERVICES CLIA # [id number] [place] [address] - [place] 100 [facility] LABORATORY SERVICES CLIA # [id number] [place], [place] [address] - [place] 100 [facility] * POC GLUCOSE (09/05/2017 11:32 AM CDT) POC GLUCOSE 162 (H) 70 - 105 mg/dL [facility]ORATORY SERVICES - [place] PREMIUM NOTE INTEREST CALCULATOR CLERK NAME beti douglas [facility] LAB[facility]ATORY SERVICES - [place] Specimen Whole blood sample (specimen) Performing Organization Address [facility] LABORATORY SERVICES CLIA # [id number] [place] [address] - [place] 100 [facility] LABORATORY SERVICES CLIA # [id number] [place], [place] [address] - [place] 100 [facility] [employer] * POC GLUCOSE (09/05/2017 8:19 AM CDT) Pathologist [facility] POC GLUCOSE 133 (H) 70 - 105 mg/dL [facility] LABORATORY SERVICES - [place] PREMIUM NOTE INTEREST CALCULATOR CLERK NAME beti douglas [facility] LABORATORY SERVICES - [place] Specimen Whole blood sample (specimen) Performing Organization Address [facility] LABORATORY SERVICES CLIA # [id number] [place] [address] - [place] 100 [facility] LABORATORY SERVICES CLIA # [id number] [place], [place] [address] - [place] 100 [facility] * POC GLUCOSE (09/05/2017 4:12 AM CDT) Pathologist [facility] POC GLUCOSE 129 (H) 70 - 105 mg/dL [facility] LABORATORY SERVICES - [place] PREMIUM NOTE INTEREST CALCULATOR CLERK NAME michael gannon [facility] LABORATORY SERVICES - [place] Specimen Whole blood sample (specimen) Performing Organization Address [facility] LABORATORY SERVICES CLIA # [id number] [place] [address] - [place] 100 [facility] LABORATORY SERVICES CLIA # [id number] [place], [place] [address] - [place] 100 [facility] [employer] * BASIC METABOLIC PANEL (09/05/2017 4:04 AM CDT) Pathologist [facility] SODIUM 136 136 - 145 mmol/L [facility]ATORY SERVICES - [place] POTASSIUM 3.9 3.5 - 5.1 mmol/L [facility] LABORATORY SERVICES - [place] CHLORIDE 102 98 - 107 mmol/L [facility]ATORY SERVICES - [place] CO2 20 (L) 22 - 29 mmol/L [facility]ATORY SERVICES - [place] CALCIUM 8.0 (L) 8.8 - 10.2 mg/dL [facility] [place] BUN 8 8 - 23 mg/dL [facility] [place] CREATININE 0.47 (L) 0.67 - 1.17 mg/dL [facility] [place] GLUCOSE 125 (H) 74 - 105 mg/dL [facility] LABORATORY SERVICES - [place] GFR >60 >=60 mL/min/1.73 sq [facility] Comment: meter LABORATORY eGFR has not [...] GFR result. GFR, >60 >=60 mL/min/1.73 sq [facility] [place] meter LABORATORY SERVICES - [place] ANION GAP 14 (H) 4 - 13 mmol/L [facility] Specimen Blood Performing Organization Address City/State/[facility] Ph one Number [facility] LABORATORY SERVICES CLIA # [id number] [place] [address] - [place] 100 [facility] LABORATORY SERVICES CLIA # [id number] [place] [address] - [facility] 100 [facility] * CBC WITH DIFFERENTIAL (09/05/2017 4:04 AM CDT) WBC 7.7 4.0 - 11.0 K/uL [facility] LABORATORY SERVICES - [place] RBC 2.88 (L) 4.70 - 6.00 M/uL [facility] LABORATORY SERVICES - [place] HEMOGLOBIN 8.1 (L) 13.5 - 18.0 g/dL [facility] LABORATORY SERVICES - [place] HEMATOCRIT 24.8 (L) 42.0 - 52.0 % [facility] [place] MCV 86.1 78.0 - 100.0 fL [facility] - [place] MCH 28.1 27.0 - 34.0 pg [facility] LAB[facility]ATORY SERVICES - [place] MCHC 32.7 31.0 - 37.0 g/dL [facility] [facility] LAB[facility]ATORY [facility] - [place] RDW 15.9 (H) 12.0 - 15.0 % [facility] LABORATORY SERVICES - [place] RDW-STDEV 49.7 (H) 37.1 - 48.7 fL [facility]OR[facility]ORY SERVICES - [place] PLATELETS 399 150 - 450 K/uL [facility] LABORATORY SERVICES - [place] MPV 8.0 (L) 9.3 - 12.4 fL [facility] LABORATORY SERVICES - [place] NEUTROPHILS 71 [...] [facility] LABORATORY SERVICES - [place] NEUTROPHIL 5.48 [...] [place] IMMATURE 0.05 0.00 - 0.10 K/uL [facility] GRANUL[facility]YTES LABORATORY ABSOLUTE SERVICES - [place] Specimen Blood Performing Organization Address City/State/Zipcode Ph one Number [facility] LABORATORY SERVICES CLIA # [id number] [place] [address] - [place] 100 [facility] LABORATORY SERVICES CLIA # [id number] DON[place] Chao [address] - [place] 100 [facility] * HEMOGLOBIN AND HEMATOCRIT (09/05/2017 12:27 AM CDT) HEMOGLOBIN 8.2 (L) 13.5 - 18.0 g/dL [facility] - [place] HEMATOCRIT 25.7 (L) 42.0 - 52.0 % [facility] - [place] Specimen Blood Performing Organization Address [facility] LABORATORY SERVICES CLIA # [id number] [place] [address] - [place] 100 [facility] LABORATORY SERVICES CLIA # [id number] [place], [place] [address] - [place] [address] [facility] [address] * POC GLUCOSE (09/04/2017 11:56 PM CDT) POC GLUCOSE 154 (H) 70 - 105 mg/dL [facility] LABORATORY SERVICES - [place] PREMIUM NOTE INTEREST CALCULATOR CLERK NAME michael gannon [facility]ATORY SERVICES - [place] Specimen Whole blood sample (specimen) Performing Organization Address [facility] [employer] SERVICES CLIA # [id number] [place] [address] - [place] 100 [facility] LABORATORY SERVICES CLIA # [id number] [place], [place] [address] - [place] 100 [facility] * POC GLUCOSE (09/04/2017 8:27 PM CDT) POC GLUCOSE 165 (H) 70 - 105 mg/dL [facility] LABORATORY SERVICES - [place] PREMIUM NOTE INTEREST CALCULATOR CLERK NAME michael gannon [facility] [employer] SERVICES - [place] Specimen Whole blood sample (specimen) Performing Organization Address [facility] LABORATORY SERVICES CLIA # [id number] [place] [address] - [place] 100 [facility] LABORATORY SERVICES CLIA # [id number] [place], [place] [address] - [place] [address] [facility] [address] * HEMOGLOBIN AND HEMATOCRIT (09/04/2017 8:27 PM CDT) HEMOGLOBIN 8.5 (L) 13.5 - 18.0 g/dL [facility] SERVICES - [place] HEMATOCRIT 26.2 (L) 42.0 - 52.0 % [facility]ORY SERVICES - [place] Specimen Blood Performing Organization Address [facility] LABORATORY SERVICES CLIA # [id number] [place] [address] - [place] 100 [facility] LABORATORY SERVICES CLIA # [id number] DONNA Chao [address] - [place] 100 [facility] * POC GLUCOSE (09/04/2017 8:03 PM CDT) POC GLUCOSE 160 (H) 70 - 105 mg/dL [facility] LABORATORY SERVICES - [place] PREMIUM NOTE INTEREST CALCULATOR CLERK NAME jaime chou [facility] LAB[facility]ATORY SERVICES - [place] Specimen Whole blood sample (specimen) Performing Organization Address City/State/Zipcode Ph one Number [facility] LABORATORY SERVICES CLIA # [id number] [place] [address] - [place] 100 [facility] LABORATORY SERVICES CLIA # [id number] DONNA Chao [address] - [facility] 100 [facility] * XR FLUORO LESS THAN 1 HOUR (09/04/2017 6:36 PM CDT) Specimen Narrative Performed At This result has an attachment that is n ot available. Order information only. Exam was auto -finalized. * PATHOLOGY (09/04/2017 6:24 PM CDT) CASE REPORT Surgical Pathology Report [facility] Case: [id number] SERVICES - [place] Authorizing Provider: Walter Tinsley MD Collected: 09/04/2017 1824 Ordering Location: [facility] Received: 09/06/2017 0753 Operating Room Pathologist: Keshia Menendez MD Specimen: Bladder, BLADDER LORAINE FINAL DIAGNOSIS Bladder biopsy: [facility] Electronical ly 1. Negative for malignancy. LABORATORY signed by Shon, 2. Ulcerated mucosa with SERVICES - Keshia Vidal MD on reactive/regenerative atypia. [place] 017 at 3:47 3. Moderate chronic cystitis PM with vascular congestion and non-specific hemorrhage. CPT Code: 06490 OPERATIVE Cystoscopy with clot [facility] PROCEDURE evacuation bladder LABORATORY SERVICES - [place] CLINICAL Blood clot in bladder [facility] LABORATORY SERVICES - [place] GROSS The two erythematous light [facility] DESCRIPTION parsons mucosal biopsies each LABORATORY measures 0.4 cm. The specimen SERVICES - is wrapped and submitted in a [place] single cassette. SOP/na MICROSCOPIC The bladder biopsy is [facility] DESCRIPTION represented in multiple levels LABORA TORY on six H&E stained slides. SERVICES - [...] is n ot available. Performing Organization Address [facility] LABORATORY SERVICES CLIA # [id number] [place] [address] - [place] 100 [facility] LABORATORY SERVICES CLIA # [id number] [place], [place] [address] - [place] 100 [facility] [employer] * POC GLUCOSE (09/04/2017 4:09 PM CDT) POC GLUCOSE 142 (H) 70 - 105 mg/dL [facility] [employer] SERVICES - [place] PREMIUM NOTE INTEREST CALCULATOR CLERK NAME luiza cook [facility] [employer] [facility] - [place] [facility] Specimen Whole blood sample (specimen) Performing Organization Address [facility] [employer] [facility] CLIA # [id number] [place] [address] - [place] 100 [facility] LABORATORY SERVICES CLIA # [id number] [place], [place] [address] - [place] 100 [facility] [employer] * HEMOGLOBIN AND HEMATOCRIT (09/04/2017 12:02 PM CDT) HEMOGLOBIN 7.9 (L) 13.5 - 18.0 g/dL [facility] [employer] [facility] HEMATOCRIT 24.7 (L) 42.0 - 52.0 % [facility] [employer] SERVICES - [place] Specimen Blood Performing Organization Address [facility] [employer] [facility] CLIA # [id number] [place] [address] - [place] 100 [facility] LABORATORY SERVICES CLIA # [id number] [place], [place] [address] - [place] 100 [facility] [employer] * POC GLUCOSE (09/04/2017 12:00 PM CDT) POC GLUCOSE 176 (H) 70 - 105 mg/dL [facility] [employer] SERVICES - [place] PREMIUM NOTE INTEREST CALCULATOR CLERK NAME luiza cook [facility] LABORATORY SERVICES - [place] Specimen Whole blood sample (specimen) Performing Organization Address City/State/Zipcode Ph one Number [facility] LABORATORY SERVICES CLIA # [id number] [place] [address] - [place] 100 [facility] LABORATORY SERVICES CLIA # [id number] [place] Chao [address] - [place] 100 [facility] * URINE CULTURE (09/04/2017 9:08 AM CDT) CULTURE No growth [facility] LABORATORY SERVICES - [place] Specimen Urine - Urine, indwelling ([place]) catheter Performing Organization Address City/[facility] Ph one Number [facility] LABORATORY SERVICES CLIA # [id number] [place] [address] - [place] 100 [facility] LABORATORY SERVICES CLIA # [id number] [place] Chao 6 [address] - [place] 100 [facility] * URINALYSIS WITH REFLEX CULTURE (09/04/2017 9:08 AM CDT) COLOR UA Red (A) Pale to dark yellow [facility]ORY SERVICES - [place] CLARITY UA Cloudy (A) Clear [facility] LABORATORY SERVICES - [place] SPECIFIC 1.020 1.003 - 1.035 [facility] GRAVITY UA LABORATORY SERVICES - [place] PH UA 8.0 5.0 - 8.0 [facility] LABORATORY SERVICES - [place] LEUKOCYTE 1+ (A) Negative [facility] - [place] NITRITE UA Negative Negative [facility] LABORATORY SERVICES - [place] PROTEIN UA 2+ (A) Negative [facility] LABORATORY SERVICES - [place] GLUCOSE UA Negative Negative [facility] LABORATORY SERVICES - [place] KETONES UA Negative Negative, Invalid [facility] Result LABORATORY SERVICES - [place] UROBILINOGEN UA 0.2 <2.0 mg/dL [facility] LABORATORY SERVICES - [place] BILIRUBIN UA Negative Negative [facility] LABORATORY SERVICES - [place] BLOOD UA 3+ (A) Negative [facility] LABORATORY SERVICES - [place] WBC UA >100 (A) 0 - 2 /hpf [facility] - [place] RBC UA >100 (A) 0 - 2 /hpf [facility] LABORATORY SERVICES - [place] BACTERIA UA 2+ (A) Negative /hpf [facility] LABORATORY SERVICES - [place] Specimen Urine - Urine, indwelling ([place]) catheter Narrative Performed At Based on results, a urine culture has been reflexed. [facility]ATORY SERVICES - [place] Performing Organization Address [facility] LABORATORY SERVICES CLIA # [id number] [place] [address] - [place] 100 [facility] LABORATORY SERVICES CLIA # [id number] [place] [address] - [address] * POC GLUCOSE (09/04/2017 7:42 AM CDT) POC GLUCOSE 199 (H) 70 - 105 mg/dL [facility] LABORATORY SERVICES - [place] PREMIUM NOTE INTEREST CALCULATOR CLERK NAME luiza cook [facility] LABORATORY SERVICES - [place] Specimen Whole blood sample (specimen) Performing Organization Address [facility] one Number [facility] [employer] [facility] CLIA # [id number] [place] [address] - [place] 100 [facility] LABORATORY SERVICES CLIA # [id number] [place] [address] - [place] 100 [facility] * EKG 12-LEAD (09/04/2017 7:25 AM CDT) Specimen Narrative Performed At Stationary ECG Study INTERFACE SYSTEM [address] [address] Test Date: 09/04/2017 7:52 AM Pat Name: OLIVERIO TINSLEY Department: 30 Room: [address] [place] [address] Gender: Male Composition Tile Layer: [id number] : 1950 Requested By: Order Number: [id number] Reading MD: Juan Manuel Richey MD Severity: Abnormal ECG Measurements Intervals [place] Rate: 89 P: 48 AK: 218 QRS: 28 QRSD: 84 T: 73 QT: 364 QTc: 442 Interpretive Statements S inus rhythm with 1st degree AV block Low voltage QRS Nonspecific T wave abnormality Abnormal ECG Electronically Signed On 09-05-2017 21: 44:48 CDT by Juan Manuel Richey MD Procedure Note Interface, [facility] Incoming Radiology Results - 09/05/2017 9:44 PM CDT Stationary ECG Study [address] [address] Test Date: 09/04/2017 7:52 AM Pat Name: OLIVERIO TINSLEY Department: 30 Room: [facility] 01 Gender: Male Composition Tile Layer: [id number] : 1950 Requested By: Order Number: [id number] Reading MD: Juan Manuel Richey MD Severity: Abnormal ECG Measurements Intervals [place] Rate: 89 P: 48 AK: 218 QRS: 28 QRSD: 84 T: 73 QT: 364 QTc: 442 Interpretive Statements Sinus rhythm with 1st degree AV block Low voltage QRS Nonspecific T wave abnormality Abnormal ECG Electronically Signed On 09-05-2017 21:44:48 CDT by Juan Manuel Richey MD Performing Organization Address City/State/Zipcode Ph one Number INTERFACE SYSTEM INTERFACE SYSTEM Refer to clinic/hospital department * PROTIME-INR (09/04/2017 5:26 AM CDT) PROTIME 17.3 (H) 11.8 - 14.6 Seconds [facility] LABORATORY SERVICES - [place] INR 1.4 (H) 0.9 - 1.2 [facility] - [place] Specimen Blood Narrative Performed At Therapeutic range: 2.0 - 3.5 [facility] - [place] Performing Organization Address City/[facility] Ph one Number [facility] LABORATORY SERVICES CLIA # [id number] [place] [address] - [place] [address] [facility] CLIA # [id number] [place] Chao [address] - [place] [address] * BASIC METABOLIC PANEL (09/04/2017 4:49 AM CDT) SODIUM 137 136 - 145 mmol/L [facility] LABORATORY SERVICES - [place] POTASSIUM 4.1 3.5 - 5.1 mmol/L [facility] LABORATORY SERVICES - [place] CHLORIDE 102 98 - 107 mmol/L [facility] LAB[facility]ATORY SERVICES - [place] CO2 22 22 - 29 mmol/L [facility] LAB[facility]AT[facility] SERVICES - [place] CALCIUM 8.4 (L) 8.8 - 10.2 mg/dL [facility] LABORATORY SERVICES - [place] BUN 11 8 - 23 mg/dL [facility] - [place] CREATININE 0.53 (L) 0.67 - 1.17 mg/dL [facility] SERVICES - [place] GLUCOSE 171 (H) 74 - 105 mg/dL [facility] LABORATORY SERVICES - [place] GFR >60 >=60 mL/min/1.73 sq [facility] Comment: meter LABORATORY eGFR has not [...] GFR result. GFR, >60 >=60 mL/min/1.73 sq [facility] IRAQI meter LABORATORY SERVICES - [place] ANION GAP 13 4 - 13 mmol/L [facility] LABORATORY SERVICES - [place] Specimen Blood Performing Organization Address City/State/Zipcode Ph one Number [facility] LABORATORY SERVICES CLIA # [id number] [place] [address] - [place] 100 [facility] LABORATORY SERVICES CLIA # [id number] DON[place] Chao [address] - [place] 100 [facility] * CBC WITH DIFFERENTIAL (09/04/2017 4:49 AM CDT) [facility] WBC 8.2 4.0 - 11.0 K/uL [facility] LAB[facility]ATORY SERVICES - [facility] RBC 2.93 (L) 4.70 - 6.00 M/uL [facility] LABORATORY SERVICES - [place] HEMOGLOBIN 8.0 (L) 13.5 - 18.0 g/dL [facility] LABORATORY SERVICES - [place] HEMATOCRIT 24.5 (L) 42.0 - 52.0 % [facility] LABORATORY SERVICES - [place] MCV 83.6 78.0 - 100.0 fL [facility] LABORATORY SERVICES - [place] MCH 27.3 27.0 - 34.0 pg [facility] LABORATORY SERVICES - [place] MCHC 32.7 31.0 - 37.0 g/dL [facility] LABORATORY SERVICES - [place] RDW 15.5 (H) 12.0 - 15.0 % [facility] LAB[facility]ATORY SERVICES - [place] RDW-STDEV 47.3 37.1 - 48.7 fL [facility] - [place] PLATELETS 428 150 - 450 K/uL [facility] LABORATORY SERVICES - [place] MPV 7.9 (L) 9.3 - 12.4 fL [facility] LABORATORY SERVICES - [place] NEUTROPHILS 71 31 - 76 % [facility] LABORATORY SERVICES - [place] LYMPHOCYTES 18 (L) 24 - 44 % [facility] LABORATORY SERVICES - [place] MONOCYTES 9 2 - 11 % [facility] - [place] EOSINOPHILS 1 0 - 6 % [facility] - [place] BASOPHILS 0 0 - 2 % [facility] - [place] IMMATURE 1 0 - 2 % [facility] LABORATORY SERVICES - [place] NEUTROPHIL 5.85 1.80 - 7.70 K/uL [facility] ABSOLUTE LABORATORY SERVICES - [place] LYMPHOCYTE 1.49 1.00 - 4.80 K/uL [facility] ABSOLUTE LABORATORY SERVICES - [place] MONOCYTE 0.73 0.10 - 1.30 K/uL [facility] ABSOLUTE LABORATORY SERVICES - [place] EOSINOPHIL 0.07 0.00 - 0.70 K/uL [facility] ABSOLUTE LABORATORY SERVICES - [place] BASOPHILS 0.02 0.00 - 0.20 K/uL [facility] ABSOLUTE LABORATORY SERVICES - [place] IMMATURE 0.05 0.00 - 0.10 K/uL [facility] GRANULOCYTES LABORATORY ABSOLUTE SERVICES - [place] Specimen Blood Performing Organization Address City/State/[facility] Ph one Number [facility] LABORATORY SERVICES CLIA # [id number] [place] [address] - [place] 100 [facility] LABORATORY SERVICES CLIA # [id number] DON[place] Chao 6 [address] - [place] [address] [place] [address] * HEMOGLOBIN AND HEMATOCRIT (09/04/2017 12:54 AM CDT) [facility] HEMOGLOBIN 7.9 (L) 13.5 - 18.0 g/dL [facility] LABORATORY SERVICES - [place] HEMATOCRIT 25.0 (L) 42.0 - 52.0 % [facility] LABORATORY SERVICES - [place] Specimen Blood Performing Organization Address City/State/[facility] Ph one Number [facility] LABORATORY SERVICES CLIA # [id number] [place] [address] - [place] 100 [facility] LABORATORY SERVICES CLIA # [id number] DON[place] Chao [address] - [place] [address] [facility] [address] * PREPARE FRESH FROZEN PLASMA (2017 11:36 PM CDT) COMPONENT TYPE [id number] [facility] LABORATORY SERVICES -- [place] COMPONENT [id number] [facility] IDENTIFICATION LABORATORY SERVICES -- [place] UNIT ABO A [facility] -- [place] UNIT RH POS [facility] -- [place] COMPONENT Transfused [facility]US LABORATORY SERVICES -- [place] COMPONENT [id number] [facility] EXPIRATION LABORATORY DATE/TIME SERVICES -- [place] COMPONENT [id number] [employer] LABORATORY SERVICES -- [place] Specimen Performing Organization Address City/State/[facility] Ph one Number [facility] LABORATORY SERVICES CLIA # [id number] [place] [address] -- [place] 100 [facility] LABORATORY SERVICES CLIA # [id number] [place], [place] [address] -- [place] [address] * PREPARE FRESH FROZEN PLASMA (2017 11:36 PM CDT) COMPONENT TYPE [id number] [facility] LABORATORY SERVICES -- [place] COMPONENT [id number] [facility] IDENTIFICATION LABORATORY SERVICES -- [place] UNIT ABO A [facility] LABORATORY SERVICES -- [place] UNIT RH POS [facility] LABORATORY SERVICES -- [place] COMPONENT Transfused [facility] STATUS LABORATORY SERVICES -- [place] COMPONENT [id number] [facility] EXPIRATION LABORATORY DATE/TIME SERVICES -- [place] COMPONENT [address] [employer] LABORATORY SERVICES -- [place] Specimen Other, specify Performing Organization Address City/State/[facility] Ph one Number [facility] LABORATORY SERVICES CLIA # [id number] [place] [address] -- [place] 100 [facility] LABORATORY SERVICES CLIA # [id number] [place], [place] [address] -- [place] [address] * PREPARE RED BLOOD CELLS (2017 9:31 PM CDT) COMPONENT TYPE [id number] [facility] LABORATORY SERVICES -- [place] COMPONENT [id number] [facility] IDENTIFICATION LABORATORY SERVICES -- [place] UNIT ABO A [facility] SERVICES -- [place] UNIT RH POS [facility] LABORATORY SERVICES -- [place] COMPONENT Transfused [facility] STATUS LABORATORY SERVICES -- [place] COMPONENT [id number] [facility] EXPIRATION LABORATORY DATE/TIME SERVICES -- [place] COMPONENT 6199 [facility] [employer] SYSTEM LABORATORY SERVICES -- [place] Specimen Other, specify Performing Organization Address City/State/Zipcode Ph one Number [facility] LABORATORY SERVICES CLIA # [id number] [place] [address] -- [place] 100 [facility] LABORATORY SERVICES CLIA # [id number] [place] [address] -- [place] 100 [facility] * COMPREHENSIVE METABOLIC PANEL (2017 7:53 PM CDT) [facility] Signature SODIUM 133 (L) 136 - 145 mmol/L [facility] LABORATORY SERVICES - [place] POTASSIUM 4.5 3.5 - 5.1 mmol/L [facility] LABORATORY SERVICES - [place] CHLORIDE 101 98 - 107 mmol/L [facility] LABORATORY SERVICES - [place] CO2 22 22 - 29 mmol/L [facility] LABORATORY SERVICES - [place] CALCIUM 7.9 (L) 8.8 - 10.2 mg/dL [facility] LABORATORY SERVICES - [place] BUN 14 8 - 23 mg/dL [facility] LABORATORY SERVICES - [place] CREATININE 0.52 (L) 0.67 - 1.17 mg/dL [facility] - [place] GLUCOSE 171 (H) 74 - 105 mg/dL [facility] LABORATORY SERVICES - [place] TOTAL PROTEIN 5.0 (L) 6.4 - 8.3 g/dL [facility] LABORATORY SERVICES - [place] ALBUMIN 2.7 (L) 4.0 - 4.9 g/dL [facility] LABORATORY SERVICES - [place] BILIRUBIN TOTAL 0.3 <=1.2 mg/dL [facility] LABORATORY SERVICES - [place] ALKALINE 116 40 - 129 U/L [facility] PHOSPHATASE LABORATORY SERVICES - [place] AST 48 (H) 0 - 40 U/L [facility] LABORATORY SERVICES - [place] ALT 17 0 - 41 U/L [facility] - [place] GFR >60 >=60 mL/min/1.73 sq [facility] Comment: meter LABORATORY eGFR has not [...] GFR result. GFR, >60 >=60 mL/min/1.[address] [facility] LABORATORY SERVICES - [place] ANION GAP 10 4 - 13 mmol/L [facility] LABORATORY SERVICES - [place] Specimen Blood Performing Organization Address [facility] LABORATORY SERVICES CLIA # [id number] [place] [address] - [place] 100 [facility] LABORATORY SERVICES CLIA # [id number] [place], [place] [address] - [facility] 100 [facility] [employer] * PROTIME-INR (2017 7:53 PM CDT) PROTIME 16.8 (H) 11.8 - 14.6 Seconds [facility] LABORATORY SERVICES - [place] INR 1.4 (H) 0.9 - 1.2 [facility] LABORATORY SERVICES - [place] Specimen Blood Narrative Performed At Therapeutic range: 2.0 - 3.5 [facility] LABORATORY SERVICES - [place] Performing Organization Address [facility] LABORATORY SERVICES CLIA # [id number] [place] [address] - [place] 100 [facility] LABORATORY SERVICES CLIA # [id number] [place], [place] [address] - [place] 100 [facility] [employer] * CBC WITH DIFFERENTIAL (2017 7:53 PM CDT) WBC 9.4 4.0 - 11.0 K/uL [facility] LABORATORY SERVICES - [place] RBC 2.53 (L) 4.70 - 6.00 M/uL [facility] LABORATORY SERVICES - [place] HEMOGLOBIN 6.6 (LL) 13.5 - 18.0 g/dL [facility] LABORATORY SERVICES - [place] HEMATOCRIT 21.4 (L) 42.0 - 52.0 % [facility] LABORATORY SERVICES - [place] MCV 84.6 78.0 - 100.0 fL [facility] LABORATORY SERVICES - [place] MCH 26.1 (L) 27.0 - 34.0 pg [facility] - [place] MCHC 30.8 (L) 31.0 - 37.0 g/dL [facility] - [place] RDW 16.1 (H) 12.0 - 15.0 % [facility] - [place] RDW-STDEV 49.2 (H) 37.1 - 48.7 fL [facility] LABORATORY SERVICES - [place] PLATELETS 613 (H) 150 - 450 K/uL [facility] LABORATORY SERVICES - [place] MPV 8.2 (L) 9.3 - 12.4 fL [facility] LABORATORY SERVICES - [place] NEUTROPHILS 64 31 [...] [place] IMMATURE 0.06 0.00 - 0.10 K/uL [facility] LABORATORY ABSOLUTE SERVICES - [place] Specimen Blood Performing Organization Address City/State/Zipcode Ph one Number [facility] LABORATORY SERVICES CLIA # [id number] [place] [address] - [place] 100 [facility] LABORATORY SERVICES CLIA # [id number] DONNA Chao 6 [address] - [place] 100 [facility] * POC GLUCOSE (2017 7:52 PM CDT) POC GLUCOSE 181 (H) 70 - 105 mg/dL [facility] LABORATORY SERVICES - [place] PREMIUM NOTE INTEREST CALCULATOR CLERK NAME michael gannon [facility] LABORATORY SERVICES - [place] Specimen Whole blood sample (specimen) Performing Organization Address City/State/Zipcode Ph one Number [facility] CLIA # [id number] [place] [phone] - [place] 100 [facility] CLIA # [id number] DON[place] Chao [phone] - [place] 100 [facility] * CT UROGRAPHY (2017 6:31 PM [...] left inguinal he rnia. Performing Organization Address [facility] Ph one Number INTERFACE SYSTEM INTERFACE SYSTEM Refer to clinic/hospital department * BLOOD GAS ARTERIAL (2017 5:21 PM CDT) PH ARTERIAL 7.40 7.38 - 7.46 [facility] [place] PCO2 ARTERIAL 36 32 - 46 mm Hg [facility] [place] PO2 ARTERIAL 102 74 - 108 mm Hg [facility] [place] HCO3 ARTERIAL 22 21 - 29 mmol/L [facility] [place] BASE EXCESS ABG -2.4 (L) -2.0 - 2.0 mmol/L [facility] [place] HEMOGLOBIN ABG 5.7 (LL) 13.5 - 18.0 g/dL [facility] [place] O2 SAT EST 99 (H) 92 - 98 % [facility] [place] OXYGEN MODE Nasal Cannula [facility] [place] LITER FLOW 2.0 L/min [facility] - [place] Specimen Blood, arterial Performing Organization Address City/[facility] Ph one Number [facility] CLIA # [id number] [place] Chao [phone] - [place] 100 [facility] LABORATORY SERVICES CLIA # [id number] [place], [place] [address] - [place] [address] * XR CHEST PA OR AP (2017 [...] stable. Procedure Note Interface, [facility] Sgf Incoming Radiology Results - 2017 5:31 PM CDT Chest, single view. Comparison 09/02/2012. History: Line Placement Findings: Right IJ central venous catheter with tip present mid SVC. Suboptimal inspiration. No evident pneumothorax. Low lung volume bilaterally. Heart size is stable. Impression: 1. Satisfactory placement of right IJ ce ntral venous catheter. Performing Organization Address City/[facility] one Number INTERFACE SYSTEM INTERFACE SYSTEM Refer to clinic/hospital department * TYPE AND SCREEN (2017 4:34 PM CDT) ABO GROUP A [facility] [place] RH (D) TYPE Positive [facility] [place] ANTIBODY SCREEN Negative [facility] [place] Specimen Blood Performing Organization Address [facility] Ph one Number [facility] CLIA # [id number] [place] [address] -- [place] [address] [facility] [address] [facility] CLIA # [id number] [place], [place] [address] -- [place] [address] * PREPARE RED BLOOD CELLS (2017 4:19 PM CDT) COMPONENT TYPE [id number] [facility] [place] COMPONENT [id number] [facility]ENT[facility] [place] UNIT ABO A [facility] [place] UNIT RH POS [facility] [place] COMPONENT Transfused [facility] -- [place] COMPONENT [phone] [facility] DATE/TIME SERVICES -- [place] COMPONENT [phone] [facility] [employer] [facility] -- [place] Specimen Other, specify Performing Organization Address [facility] Ph one Number [facility] CLIA # [id number] [place] [phone] -- [place] 100 [facility]ORY SERVICES CLIA # [id number] [place] [address] -- [place] 100 [facility] * LACTIC ACID (2017 3:08 PM CDT) LACTIC ACID 1.1 0.7 - 2.1 mmol/L [facility] - [place] Specimen Blood Performing Organization Address [facility] one Number [facility] CLIA # [id number] [place]ao [phone] - [place] 100 [facility] LAB[facility]ATORY SERVICES CLIA # [id number] [place] [address] - [place] 100 [facility] * COMPREHENSIVE METABOLIC PANEL (2017 3:08 PM CDT) SODIUM 135 (L) 136 - 145 mmol/L [facility] - [place] POTASSIUM 4.7 3.5 - 5.1 mmol/L [facility] - [place] CHLORIDE 100 98 - 107 mmol/L [facility] [place] CO2 23 22 - 29 mmol/L [facility] [place] CALCIUM 8.1 (L) 8.8 - 10.2 mg/dL [facility] [place] BUN 18 8 - 23 mg/dL [facility] [place] CREATININE 0.61 (L) 0.67 - 1.17 mg/dL [facility] [place] GLUCOSE 214 (H) 74 - 105 mg/dL [facility] [place] TOTAL PROTEIN 5.5 (L) 6.4 - 8.3 g/dL [facility] [place] ALBUMIN 2.9 (L) 4.0 - 4.9 g/dL [facility] [place] BILIRUBIN TOTAL 0.3 <=1.2 mg/dL [facility] - [place] ALKALINE 117 40 - 129 U/L [facility] PHOSPHATASE LABORATORY SERVICES - [place] AST 20 0 - 40 U/L [facility] [place] ALT 15 0 - 41 U/L [facility] [place] GFR >60 >=60 [...] GFR result. GFR, >60 >=60 mL/min/1.73 sq [facility] IRAQI meter LABORATORY SERVICES - [place] ANION GAP 12 4 - 13 mmol/L [facility] Spec[facility] Blood Performing Organization Address City/State/Zipcode Ph one Number [facility] CLIA # [id number] [place]ao [phone] - [place] 100 [facility] LAB[facility]ATORY SERVICES CLIA # [id number] DONNA Chao [phone] - [facility] 100 [facility] * CBC WITH DIFFERENTIAL (2017 3:08 PM CDT) [facility] WBC 10.9 4.0 - 11.0 K/uL [facility] RBC 2.47 (L) 4.70 - 6.00 M/uL [facility] - [place] HEMOGLOBIN 6.4 (LL) 13.5 - 18.0 g/dL [facility] - [place] HEMATOCRIT 20.6 (L) 42.0 - 52.0 % [facility] [place] MCV 83.4 78.0 - 100.0 fL [facility] [place] MCH 25.9 (L) 27.0 - 34.0 pg [facility] - [place] MCHC 31.1 31.0 - 37.0 g/dL [facility] - [place] RDW 15.9 (H) 12.0 - 15.0 % [facility] [place] RDW-STDEV 48.8 (H) 37.1 - 48.7 fL [facility] - [place] PLATELETS 561 (H) 150 - 450 K/uL [facility] - [place] MPV 8.1 (L) 9.3 - 12.4 fL [facility] - [place] NEUTROPHILS 77 (H) 31 - 76 % [facility] [place] LYMPHOCYTES 16 (L) 24 - 44 % [facility] - [place] MONOCYTES 6 2 - 11 % [facility] [place] EOSINOPHILS 0 0 - 6 % [facility] [place] BASOPHILS 0 0 - 2 % [facility] [place] IMMATURE 1 0 - 2 % [facility] - [place] NEUTROPHIL 8.39 (H) 1.80 - 7.70 K/uL [facility]AT[facility] - [place] LYMPHOCYTE 1.76 1.00 - 4.80 K/uL [facility]OLUTE LAB[facility] - [place] MONOCYTE 0.62 0.10 - 1.30 K/uL [facility] [place] EOSINOPHIL 0.03 0.00 - 0.70 K/uL [facility] [place] BASOPHILS 0.01 0.00 - 0.20 K/uL [facility] [place] IMMATURE 0.09 0.00 - 0.10 K/uL [facility] GRANUL[facility] ABSOLUTE [facility] - [place] Specimen Blood Performing Organization Address City/State/Zipcode Ph one Number [facility] CLIA # [id number] [place] [address] - [place] 100 [facility] LABORATORY SERVICES CLIA # [id number] [place] [address] - [place] 100 [facility] [employer] documented in this encounter Visit Diagnoses Diagnosis Blood clot in bladder Hemorrhage into bladder wall documented in this encounter Administered Medications Action [...] 145 mg Given 09/05/2017 12:07 PM CDT 09/04/2017 6:23 PM CDT 50 mL Operativ e Site iopamidol (ISOVUE-300) 61 % injection Given INTRA-PROCEDURE PRN, Starting 09/04/17 at 1823, Until 09/04/17 at 1824, Routine, Intra-op 09/06/2017 5:25 AM CDT 60 mg isosorbide [...] mL/hr New Bag 09/04/2017 9:14 AM CDT 09/06/2017 1:44 PM CDT 1 mg LORazepam [...] Starting Wed09/03/17 at 1617, Until Wed09/06/17 at 2037, Constipation, Routine 09/06/2017 3:22 PM CDT 400 mg magnesium oxide (MAG-OX) tablet 400 mg Given 400 mg, Oral, THREE TIMES DAILY WITH MEALS, First dose on 09/05/17 at 1200, Until Discontinued, Routine 400 mg Given 09/06/2017 8:08 AM CDT 400 mg Given 09/05/2017 4:36 PM CDT 09/06/2017 8:09 AM CDT 12.5 mg metoprolol succinate (TOPROL XL) SR 24 Given hour tablet 12.5 mg 12.5 mg, Oral, DAILY, First dose on 09/05/17 at 1145, Until Discontinued, Routine 12.5 mg Given 09/05/2017 12:08 PM CDT 09/06/2017 8:10 AM CDT 2 mg morphine 4 mg/mL injection 2 mg Given 2 mg, IV, EVERY 3 HOURS PRN, Starting Wed09/03/17 at 1916, Until Wed 7 at 2037, Pain (See admin instructions), Routine 2 mg Given 09/06/2017 5:25 AM CDT 2 mg Given 09/06/2017 2:15 AM CDT naloxone (NARCAN) 0.4 mg/mL injection 0.1 mg 0.1 mg, IV, SEE ADMIN INSTRUCTIONS, Starting Wed09/03/17 at 1617, Until Mo n 09/06/17 at 2037, Routine ondansetron (ZOFRAN) 4 mg/2 mL injectio n 4 mg 4 mg, IV, EVERY 6 HOURS PRN, Starting 09/05/17 at 1052, Until Wed 7 at 2037, Nausea/Emesis, Routine 09/06/2017 8:08 AM CDT 40 [...] 200 mg Given 09/05/2017 12:08 PM CDT 09/05/2017 4:13 AM CDT 10 mL sodium chloride 0.9 % flush injection 10 Given mL 10 mL, IV, EVERY 12 HOURS PRN, Starting Wed09/03/17 at 1623, Until Mon 7 at 2037, Other (See Comment), as needed , Routine 10 mL Given 09/05/2017 3:35 AM CDT 10 mL Given 09/05/2017 12:31 AM CDT 09/04/2017 5:42 PM CDT 3,000 mL Operativ e Site sodium chloride 0.9 % irrigation Given solution INTRA-PROCEDURE PRN, Starting 09/04/17 at 1742, Until 09/04/17 at 1824 09/04/2017 6:33 PM CDT 30 mL/hr sodium chloride 0.9% infusion New Bag IV, at 30 mL/hr, CONTINUOUS, Starting Wed09/03/17 at 1630, Until Mon 7 at 2037, Routine 30 mL/hr New [...] Given 5 mg, Oral, NIGHTLY PRN, Starting 09/05/17 at 1137, Until 09/06/17 at 2037, Insomnia, Routine documented in this encounter
--- OUTSIDE RECORDS SUMMARY | 2020-03-24 13:43 | XMS REPORT | Encounter Summary ---
Author Author [facility] [place], [place], [place], [facility] Organization [facility] [place], [place], [place], [facility] Address Unknown Phone Unavailable Care Team Providers Care Carbider Name Role Phone Claus Couch MD PCP Encounter Details Care Team Description Date Type Department Walter Oconnor MD 100 [facility] [address] [place] [id number] Coronary atherosclerosis of grand [place] tribes coron [place] artery (Primary Dx) 02/05/2011 Outpatient [facility] Conversion Historical [address] [facility] [place] [address] Social History Date Tobacco Use Types Packs/Day Years Used Never Assessed Sex Assigned at Date Recorded Not on file Industry Job Start Date Occupation Not on file Not on file Not on file Travel End Travel History Travel Start No recent travel history available. documented as of this encounter Plan of Treatment Not on filedocumented as of this encounter Visit Diagnoses Diagnosis Coronary atherosclerosis of grand ronde tribes thom nary artery - Primary documented in this encounter
--- OUTSIDE RECORDS SUMMARY | 2020-03-24 13:43 | XMS REPORT | Encounter Summary ---
Author Author [facility] [place], [place], [facility] Organization [facility] [place], [place], [facility] Address Unknown Phone Unavailable Care Team Providers Care Airport Traffic Controller Name Role Phone Claus Couch MD PCP Encounter Details Care Team Description Date Type Department Walter Oconnor MD 100 [facility] [address] [place] [phone] CORON ATHEROSCL [place] CORON VESSEL (Farhana sigrid Dx) 10/21/2004 Inpatient [facility] CORONARY CARE UNIT [address] [facility] [place] [phone] Social History Date Tobacco Use Types Packs/Day [...] encounter Visit Diagnoses Diagnosis Coronary atherosclerosis of poarch thom nary artery - Primary documented in this encounter
--- OUTSIDE RECORDS SUMMARY | 2020-03-24 13:43 | XMS REPORT | Encounter Summary ---
Author Author [facility] Am[place] Go [place], [place], [facility][Note 3] Organization [facility] [place] GoSanjan[place], [place], [facility][Note 3] Address Unknown Phone Unavailable Care Team Providers Care Clinical Abstractor Name Role Phone Shahram Mccallum MD PCP Reason for Visit * Reason Comments Erroneous encounter-disregard Encounter Details Care Team Description Date Type Department Walter Oconnor MD 100 [facility] [address] [place] [phone] Erroneous encounter-disregard 07/06/[address] [facility] Heart Care-Medical Bldg [address] [facility] [place] [phone] Social History Date Tobacco [...]
--- OUTSIDE RECORDS SUMMARY | 2020-03-24 13:43 | XMS REPORT | Encounter Summary ---
Author Author [facility], [place], [place], [place], [facility] Organization [facility] [place], [place], [place], [facility] Address Unknown Phone Unavailable Care Team Providers Care Jute Bag Cutting Machine Operator Name Role Phone Claus Couch MD PCP Encounter Details Care Team Description Date Type Department Walter Oconnor MD 100 [facility] [address] [place] [phone] CORON ATHEROSCL [place] CORON VESSEL (Farhana sigrid Dx) 08/27/2004 Inpatient [facility] [place] [facility] 7E Historical MEDICAL CARDIAC [address] [place] [phone] Social History Date Tobacco [...] encounter Visit Diagnoses Diagnosis Coronary atherosclerosis of aniak thom nary artery - Primary documented in this encounter
--- OUTSIDE RECORDS SUMMARY | 2020-03-24 13:43 | XMS REPORT | Encounter Summary ---
Author Author [facility], [place], [place], [facility] Organization [facility] PageZ[place] Go, [place], [facility] Address Unknown Phone Unavailable Care Team Providers Care Cardroom Manager Name Role Phone Claus Couch MD PCP Encounter Details Care Team Description Date Type Department Corey Santillan MD 100 [facility] [address] [place] [phone] Nonspecific abnormal electrocardiogram ( ECG) (EKG) (Primary Dx); Cor athrscl-uns vessel 02/05/2011 Outpatient [facility] Conversion Historical [address] [facility] [place] [phone] Social History Date Tobacco Use Types Packs/Day Years Used Never Assessed Sex Assigned at Date Recorded Not on file Industry Job Start Date Occupation Not on file Not on file Not on file Travel End Travel History Travel Start No recent travel history available. documented as of this encounter Plan of Treatment Not on filedocumented as of this encounter Visit Diagnoses Diagnosis Nonspecific abnormal electrocardiogram (ECG) (EKG) - Primary Coronary atherosclerosis of unspecified type of vessel, ass[place]ibo[place] and [place] tribes or graft documented in this encounter
--- OUTSIDE RECORDS SUMMARY | 2020-03-24 13:43 | XMS REPORT | Encounter Summary ---
Author Author [facility], [place], [place], [facility] Organization [facility] [place], [place], [facility] Address Unknown Phone Unavailable Care Team Providers Care Security Lead Name Role Phone Claus Couch MD PCP Encounter Details Care Team Description Date Type Department Walter Oconnor MD [address] [place] [address] [address] [place] [phone] Corey Santillan MD [address] [place] [address] [address] [place] [phone] Other Chest Pain (Primary Dx) 03/01/[address] [facility]E Historical MEDICAL CARDIAC [address] [facility] [place] [phone] Social History Date Tobacco [...] as of this encounter Visit Diagnoses Diagnosis Other chest pain - Primary documented in this encounter
--- OUTSIDE RECORDS SUMMARY | 2020-03-24 13:43 | XMS REPORT | Encounter Summary ---
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 documented as of this encounter Plan of Treatment Not on filedocumented as of this encounter Visit Diagnoses Diagnosis First degree atrioventricular block - P rimary Congenital malposition of heart and car diac apex documented in this encounter
--- OUTSIDE RECORDS SUMMARY | 2020-03-24 13:43 | XMS REPORT | Encounter Summary ---
Author Author [facility] [place], [place], [facility] Organization [facility] Amos Go, [place], [place], [facility] Address Unknown Phone Unavailable Care Team Providers Care Trial Manager Name Role Phone Shahram Mccallum MD PCP Reason for Visit * Reason Comments Chest Pain Shortness of Breath * Auth/Cert Referred By Contact Referred To Contact Status Reason Specialty Diagnoses / Procedures [facility] [address] [place] [address] Encounter Details Care Team Description Date Type Department Cooper Ge DO NO ADDRESS ON FILE Junior Duque, [address] [place] [address] COPD with acute exacerbation 09/02/2012 [facility] in - Encounter Medical Surgical D [address] [place] [address] [place] [address] Social History Date Tobacco Use Types Packs/Day [...] Signs Reading Time Taken Comments Vital Sign 124/68 2012 12:00 PM CDT Blood Pressure 68 2012 12:00 PM CDT Pulse 36 C (96.8 F) 2012 12:00 PM CDT Temperature 18 2012 12:00 PM CDT Respiratory Rate 94% 2012 12:00 PM CDT Oxygen Saturation - - Inhaled Oxygen Concentration 97.8 kg (215 lb 9.6 oz) 09/02/2012 9:00 PM CDT Weight 167.6 cm (5' 6") 09/02/2012 9:00 PM CDT Height 34.8 09/02/2012 9:00 PM CDT Body Mass Index documented in this encounter Discharge Summaries * Junior Duque MD - 2012 1:37 PM CDT Physician Discharge Summary PATIENT: Oliverio Dalton / 62 y.o. / male : 1950 ADMIT DATE: 09/02/2012 DISCHARGE DATE: 2012 SERVICE: Hospitalist ADMITTING DIAGNOSES: 1. Chest Pain 2. Right Lower Extremity Swelling 3. Weakness 4. Acute COPD Exacerbation 5. CAD DISCHARGE DIAGNOSES: 1. Acute COPD Exacerbation 2. General Debility 3. CAD 4. HTN 5. OA 6. Chronic Venous Insufficiency 7. Peripheral Vascular Disease HOSPITAL COURSE: This 62 yo male was admitted with a presentation of intermitten t epigastric fullness and dyspnea that had been occuring for 2 weeks prior to ad mission. On the day of admission, the patient was walking into his usual health clinic and started having Left chest pain that lasted until he had oxygen applie d in the ambulance on the way to the Emergency Dept. In the ED, the patient manifested stable vital signs, no hypoxemia, and a negati ve EKG for ischemic findings. Subsequent cardiac rule out was negative and his c linical presentation did not give us concern for further ischemic workup acutely . The patient underwent CTA of chest without evidence of PE. He further had a R DV T scan due to his persistent swelling in that leg and it was negative for DVT. Upon restarting the patient's usual COPD inhalers, he started to feel better and at discharge felt he was breathing better and able to be up without problems. He was having slight recurrences of his index symptoms at discharge. Notably, the patient had self-discontinued his respiratory inhalers about 2 months before is admission. CONSULTS: none. PROCEDURES (SIGNIFICANT): CTA chest, US RLE DISCHARGING PHYSICIAN: Junior Duque MD EXAMINATION AT DISCHARGE: BP 124/68 | Pulse 68 | Temp(Src) 96.8 F (36 C) (Oral) | Resp 18 | Ht 5' 6" ( 1.676 m) | Wt 215 lb 9.6 oz (97.796 kg) | BMI 34.80 kg/m2 | SpO2 94% General appearance: alert, in no distress Head: atraumatic, Normocephalic, without obvious abnormality Eyes: conjunctivae/corneas clear. PERRL, EOM's intact. Throat: Lips, mucosa (moist), and tongue normal. Teeth and gums normal Neck: supple, symmetrical, trachea midline, no adenopathy, no carotid bruit and no JVD Lungs: clear to auscultation bilaterally, diminished breath sounds diffuse, norm al respiratory effort Heart: normal rate, regular rhythm, normal S1, S2, no murmurs, rubs, clicks or g allops, systolic murmur 2/6 at 2nd left intercostal space Abdomen: Soft, non-tender. Bowel sounds normal. No masses, no organomegaly. Extremities: extremities normal, atraumatic, no cyanosis or edema, normal streng th, normal tone Skin: Skin color, texture, turgor normal. No rashes or lesions Neurologic: Grossly normal Musculoskeletal: no joint tenderness, deformity or swelling CONDITION AT DISCHARGE: stable. DISPOSITION: home. MEDICATIONS PRIOR TO ADMISSION: Prescriptions prior to admission Medication Sig Dispense Refill aspirin (AMELIA) 81 mg Oral Tab Take [...] Take 60 mg by mo uth daily systems security consultant. loratadine (CLARITIN) 10 mg Oral tablet Take [...] 40 mg by mouth daily at bedtime. DISCONTD: flaxseed Oil 1,000 mg Oral Cap Take 1,000 mg by mouth 3 times jono y with meals. DISCONTD: diclofenac sodium (VOLTAREN) 50 mg Oral TbEC Take 50 mg by mouth 2 times daily with meals. Breakfast and Dinner DISCONTD: fluticasone (FLOVENT HFA) 110 mcg/actuation Inhalation Aero Take 1 Puff by inhalation 2 times daily. DISCONTD: albuterol (PROAIR HFA) 90 mcg/Actuation Inhalation HFAA inhaler Ta ke 2 Puffs by inhalation 2 times daily as needed. DISCONTD: isosorbide mononitrate SR 24 hour (IMDUR) 60 mg Oral tablet Take 6 0 mg by mouth every 12 hours. DISCHARGE MEDICATION LIST: Current Discharge Medication List START taking these medications Details levofloxacin (LEVAQUIN) 500 mg Oral tablet Take 1 Tab by mouth daily at bedtime. Qty: 6 Tab, Refills: 0 CONTINUE these medications which have CHANGED Details fluticasone (FLOVENT HFA) 110 mcg/actuation Inhalation Aero Take 1 Puff by inhal ation 2 times daily. Qty: 12 Gram, Refills: 1 albuterol (PROAIR HFA) 90 mcg/Actuation Inhalation HFAA inhaler Take 2 Puffs by inhalation every 4 hours as needed for Shortness of Breath or Wheezing. Qty: 6.7 Gram, Refills: 1 CONTINUE these medications which have NOT CHANGED Details aspirin (AMELIA) 81 mg Oral Tab Take [...] tablet Take 60 mg by mouth daily systems security consultant. loratadine (CLARITIN) 10 mg Oral tablet Take [...] Take 12.5 mg by mo uth daily. ramipril (ALTACE) 10 mg Oral capsule Take 10 mg by mouth daily with lunch. simvastatin (ZOCOR) 40 mg Oral tablet Take 40 mg by mouth daily at bedtime. STOP taking these medications flaxseed Oil 1,000 mg Oral Cap Comments: Reason for Stopping: diclofenac sodium (VOLTAREN) 50 mg Oral TbEC Comments: Reason for Stopping: PATIENT DISCHARGE INSTRUCTIONS: Activity: activity as tolerated. Diet: Low fat, Low cholesterol and Low sodium. Wound Care: na . FOLLOW-UP with Shahram Mccallum MD in 2 week(s). INSPECTOR BALANCE TRUING FOLLOW UP: DR. Oconnor as scheduled in September. This discharge took greater than 30 minutes with discussion of plan, instruction s, and coordination of care. Signed: Junior Duque MD 2012, 1:37 PM Cc: Shahram Mccallum MD documented in this encounter Discharge Instructions * Instructions* Junior Duque MD - 2012 You should call for an appointment with your PCP in 2 weeks. Your activity should be as tolerated Your diet should be as tolerated with general restrictions for low sodium, lo w fat Call your PCP, or return to the Emergency Room if you are not improving or yo ur illness starts to worsen. Please take a list of all your medications to your next physician visit. Keep your appointment with Dr Oconnor as scheduled in September Chronic Obstructive Pulmonary Disease (COPD) Your physician has diagnosed you as having chronic obstructive pulmonary disease (COPD). This is a process in which the air flow is restricted from leaving the lungs. It is also an end stage process of previous damage with the most common c ause being smoking. It is essentially irreversible and treatment is mainly suppo rtive. The lungs can never return to normal, but there are measures you can take which will improve them and make you feel better. HOME CARE INSTRUCTIONS If you smoke, STOP SMOKING. The carbon monoxide build-up in the blood robs yo u of your already short oxygen supply. If antibiotics were prescribed, take as directed. Avoid antihistamines and cough syrups. (They dry your system up and slow down the elimination of secretions. This decreases respiratory capacity and may lead to infections.) Drink 8 large glasses of fluids per day. (This loosens secretions.) Use humidifiers in home and at bedside if they do not make breathing difficul t. Receive all protective vaccines your caregiver suggests, especially pneumococ donovan and influenza. Use home oxygen as suggested once started. CALL YOUR CAREGIVER OR THIS LOCATION IF: Sputum becomes purulent (infected looking). An oral temperature that lasts 2 or more days above 102 F (38.9 C) or as your caregiver suggests, and is not controlled by medication. Breathing is more labored or exercise tolerance is decreasing. seek immediate medical care if: You have rapid heart rate, agitation, confusion or stupor (family members may ne ed to observe this), or tremors. ExitCare Patient Information 2006 [employer]. documented in this encounter Medications at Time of Discharge Start Date End Date Medication Sig Dispensed Refills pioglitazone (ACTOS) 30 Take 30 mg by [...] 0 Oral tablet mouth daily at bedtime. 2012 fluticasone (FLOVENT HFA) Take 1 Puff 12 Gram 1 110 mcg/actuation by inhalation Inhalation Aero 2 times daily. 2012 albuterol (PROAIR HFA) 90 Take 2 Puffs 6.7 Gram 1 mcg/Actuation Inhalation by inhalation HFAA inhaler every 4 hours as needed for Shortness of Breath or Wheezing. 2012 09/06/2017 levofloxacin (LEVAQUIN) Take 1 Tab [...] (IMDUR) 60 mg mouth daily Oral tablet systems security consultant. 09/06/2017 ramipril (ALTACE) 10 mg Take 10 mg by 0 Oral capsule mouth daily with lunch. documented as of this encounter Progress Notes * Sgf Scanning, [facility] - 10/25/2012 8:09 AM RINK RAT Electronically signed by [facility] Transcriptions Incoming at 2 8:09 AM RINK RAT * Omaira Merino, Physical Therapist - 2012 12:37 PM CDT Physical Therapy [facility]--PT [place] Ph. Ph. For questions regarding this patient's status or care, please call [phone]. Acute Physical Th erapy Evaluation Prior to session completed thorough chart review. Discussed plan of care with Carmen garcia. Reviewed prior therapy treatment notes, if applicable. Evaluation CPT Code 71633 Assessment: Patient seen for physical therapy evaluation as requested by physician. Patient modified independent for all functional transfers and mobility with use of WWR. Patient participated in gait training 700 feet with WWR and guidance only within the halls. Discussed treatment options at this time of skilled therapy vs ambu latory aid services. Both agreed that ambulatory aide services would benefit th e patient more vs skilled therapy. Therapeutic diagnosis: Decreased activity tolerance Rehabilitation Potential: Good Plan Therapy Frequency: Will follow 1 time/s per day, 6 times per week. Plan of care: Gait training, Transfer training and Home safety instruction Recommended/planned discharge disposition:Home with assistance. Equipment already in home: cane Equipment needed at discharge: unknown at this time. Recommendations for referral to another service: manager social work and case manag ement/account executive healthcare PT plan of care discussed with patient, who is in agreement. Chart Review Name: Oliverio Dalton Age: 62 y.o. : 1950 ROOM: [place] [address] Insurance: Payor: MEDICARE Plan: MEDICARE PART A AND B Product Type: Medica re Physician: No ref. provider found Evaluation Date: 2012 Diagnosis: Diagnoses of Chest pain, Other dyspnea and respiratory abnormality , COPD (chronic obstructive pulmonary disease), Non compliance with medical alexis tment, Leg pain, Leg swelling, and SOB (shortness of breath) were pertinent to t his visit. History of Primary Problem: COPD Past Medical History: has a past medical history of CAD S/P percutaneous coron rolando angioplasty; Hypertension; COPD (chronic obstructive pulmonary disease); Per ipheral vascular disease; Depression; Anxiety; Hyperlipidemia LDL goal < 70; Arthritis; CHF (congestive heart failure); and GERD (gastroesophageal reflux disease). Patient precautions: Fall Risk, Weight Bearing: No restriction Other pertinent findings: IV Confirmed patient's identification of name and date of on name band. and b y patient report. Subjective Patient and Nurse consented to evaluation. Subjective information: provided by patient and provided by nurse Pain: Refer to Doc Flowsheet for documented pain levels. 12/18 Patient/Family Goals Statement: To return home as independent as possible. Prior level of function: Modified independent within the home. Does have home health services throughout the week. Falls: It is unknown whether patient has a history of falls. Assist available at home: Home health. Home environment: One story home. 3 steps to enter house without rails available. 0 steps inside house Objective Level of alertness: alert Orientation: Person, Place, Date and Situation Ability to Learn: Good Safety Awareness: Good Ability to follow commands: Good Upper Extremity Function: Left UE: Strength/ROM: adequate ROM, adequate strength Right UE: Strength/ROM: adequate ROM, adequate strength Lower Extremity Function: Left LE: Strength/ROM: adequate ROM, adequate strength Right LE: Strength/ROM: adequate ROM, adequate strength Muscle Tone: normal Coordination: WNL Sensation: WNL Functional Mobility: Rolling: Modified independent ] Scooting: Modified independent Supine to sit: Modified independent Sit to supine: Modified independent Sit to stand: Modified independent Bed to chair: Modified independent Gait: Gait Trainin feet with rolling walker Level of assistance: Supervision Deviations noted: widened base of support, kept arms/walker extended Balance: Sitting Static: Good Sitting Dynamic: Good Standing Static: Good Standing Dynamic: Good = Vitals: Patient on room air Education Verbal Instructions has been provided to patient regarding Physical therapy p brianna of care, transferring services to ambulatory aide, and increasing safety whi le in the hospital. Patient verbalized understanding. Disposition: Patient left lying in bed with Call light and phone left within pa gabrielant's reach Assessment: See top of this note. Plan: See top of this note. Further treatment notes and short term goals can be found in Care Plan Notes. Thank you for this referral, Omaira Merino, MPT * Alexandra Go RN - 2012 11:03 AM CDT Patient plans to return home with home health services thru [facility]. He has a cane he uses prn. Off oxygen checking sats. Patient doesn't have home oxygen so assessing for an y need. Will follow. documented in this encounter H&P Notes * Junior Duque MD - 09/02/2012 6:52 PM CDT ADMISSION NOTE [facility]IST[facility] Junior Duque MD 09/02/2012 6:52 PM Subjective: Patient is a 61 y.o. male presents with shortness of breath and chest pain as their chief complaint. HISTORY OF PRESENT ILLNESS: This 61 yo male with a hx sig for CAD s/p CABG and multiple stents with diabetes , PAD, COPD presents with the above complaint. He states this has been ongoing for approximately 2 months and has been to so ma ms doctors he doesn't have enough fingers to count them. The patient sx of RLE swelling and pain intermittently over the last month or tw o. He has started having symptoms of shortness of breath, midepigastric heaviness a ccompanied by clamminess and increased sob. He states that his analysis intern has taken his pulse and it is often in the 40's wit h these episodes. He feels these "chest" sx have been ongoing at least 3 weeks. The patient has had intermittent OLIVIA, dizziness, and weakness. His weakness has b een progressive over the last several weeks. The patient came from [facility] today after going to see a LUMP ROOM SUPERVISOR for his problems . He didn't even make it to the front end java developer to check in without having chest pain in left chest. Patient Active Problem List Diagnoses Date Noted COPD with acute exacerbation 09/02/2012 Priority: High Class: Acute Peripheral arterial disease 09/02/2012 Priority: High Class: Chronic Leg edema, left 09/02/2012 Priority: High Class: Acute Dyspnea 09/02/2012 Priority: High Class: Acute Chest pain 09/02/2012 Class: Acute CAD (coronary artery disease) 09/02/2012 Class: Chronic Past Medical History Diagnosis Date CAD S/P percutaneous coronary angioplasty Hypertension COPD (chronic obstructive pulmonary disease) Peripheral vascular disease Depression Anxiety Hyperlipidemia LDL goal < 70 Arthritis CHF (congestive heart failure) GERD (gastroesophageal reflux disease) Past Surgical History Procedure Date Hx appendectomy Hx cholecystectomy Hx coronary artery bypass graft Hx ptca Hx hernia incisional repair Hx hernia inguinal repair Hx hammer toe repair History Substance Use Topics Smoking status: Never Smoker Smokeless tobacco: Not on file Alcohol Use: No Family History Problem Relation Age of Onset Heart Failure Mother Hypertension Mother Hypertension Father Stroke Father No current facility-administered medications on file prior to encounter. No current outpatient prescriptions on file prior to encounter. Allergies Allergen Reactions Codeine Unknown Doxycycline Rash Phenobarbital Weakness "relaxes me too much" Piperacillin-Tazobactam Hives and Rash Breaks out Terazosin Other (See Comments) Chest heaviness, chest pain Valium (Diazepam) Other (See Comments) "stops breathing, no pulse" Unresponsiveness REVIEW OF SYSTEMS: Pertinent items are noted in HPI. A comprehensive review of systems was negative except for: Genitourinary: positi ve for dysuria, hesitancy, hematuria and states that two days ago he could not p ee so had a straight cath with 800ml out. He had bloody urine then and again yes terday. His urination today has been adequate amount with no evidence of blood. Musculoskeletal: positive for muscle weakness Neurological: positive for headaches, coordination problems, gait problems and w eakness Behvioral/Psych: positive for anxiety and depression Objective: Results for orders placed during the hospital encounter of 09/02/12 (from the [facility] 24 hour(s)) CBC WITH DIFFERENTIAL Component Value Range WBC 6.7 4.0-11.0 K/uL RBC 4.52 (*) 4.70-6.00 M/uL HEMOGLOBIN 13.3 (*) 13.5-18.0 g/dL HEMATOCRIT 38.0 (*) 42.0-52.0 % MCV 84.1 78.0-100.0 fL MCH 29.4 27.0-34.0 pg MCHC 35.0 31.0-37.0 g/dL RDW 14.5 12.0-15.0 % RDW-STDEV 43.8 37.1-48.7 fL PLATELETS 264 150-450 K/uL MPV 8.4 (*) 9.3-12.4 fL NEUTROPHILS 63 31-76 % LYMPHOCYTES 26 24-44 % MONOCYTES 8 2-11 % EOSINOPHILS 2 0-6 % BASOPHILS 0 0-2 % NEUTROPHIL ABSOLUTE 4.26 1.80-7.70 K/uL LYMPHOCYTE ABSOLUTE 1.77 1.00-4.80 K/uL MONOCYTE ABSOLUTE 0.55 0.10-1.30 K/uL EOSINOPHIL ABSOLUTE 0.14 0.00-0.70 K/uL BASOPHILS ABSOLUTE 0.01 0.00-0.20 K/uL IMMATURE GRANULOCYTES 0 <=2 % IMMATURE GRANULOCYTES ABSOLUTE 0.02 <=8.00 K/uL COMPREHENSIVE METABOLIC PANEL Component Value Range SODIUM 135 (*) 136-145 mmol/L POTASSIUM 4.8 3.5-5.1 mmol/L CHLORIDE 104 98-111 mmol/L CO2 23 22-31 mmol/L CALCIUM 9.0 8.3-10.3 mg/dL BUN 25 (*) 7-21 mg/dL CREATININE 1.15 0.61-1.24 mg/dL GLUCOSE 206 (*) 70-105 mg/dL TOTAL PROTEIN 7.1 5.6-8.0 g/dL ALBUMIN 4.4 3.3-4.8 g/dL BILIRUBIN TOTAL 0.3 0.2-1.3 mg/dL ALKALINE PHOSPHATASE 40 38-126 U/L AST 25 15-46 U/L ALT 19 11-66 U/L GFR 64 >=60 mL/min/1.73 sq meter GFR, 78 >=60 mL/min/1.73 sq meter CARDIAC ENZYMES Component Value Range TROPONIN I <0.06 0.00-0.40 ng/mL CKMB 2.8 0.6-6.3 ng/mL PROTIME-INR Component Value Range PROTIME 14.1 11.8-14.6 Seconds INR 1.1 0.9-1.2 PTT Component Value Range PTT 32.9 25.0-35.0 seconds BRAIN NATRIURETIC PEPTIDE, BNP OR PROBNP Component Value Range BRAIN NATRIURETIC PEPTIDE 169 (*) 0-100 pg/mL PHENYTOIN LEVEL, TOTAL Component Value Range PHENYTOIN TOTAL 25.3 (*) 10.0-20.0 ug/mL D-DIMER Component Value Range D-DIMER QUANT 0.36 0.00-0.46 ug/mL FEU POC, BLOOD GASES Component Value Range PH BLOOD POC 7.38 7.38-7.46 PCO2 POC 41 32-46 mm Hg POC PO2 79 74-108 mm Hg HCO3 (CALC) POC 24 21-29 mmol/L POC HEMOGLOBIN 12.2 (*) 13.5-18.0 g/dL BASE EXCESS POC -1 -2-2 mmol/L POC O2 SAT 95 92-98 % TOTAL CO2 POC 25 22-31 mmol/L POC SODIUM 137 136-145 meq/L POC POTASSIUM 4.8 3.5-5.1 meq/L POC HEMATOCRIT 36.0 (*) 37.0-47.0 % POC IONIZED CALCIUM 1.25 1.12-1.30 mg/dL POC GLUCOSE 258 (*) 65-99 mg/dL SPECIMEN SOURCE, GASES ART COMMENT, GASES POC Right Cj's Test Passed ECG: Sinus rhythm and poor R wave progression, reviewed myself RADIOLOGY: CXR- was negative for infiltrate, effusion, pneumothorax, or wide med iastinum, obvious cardiomegaly, flattened diaphragms- reviewed myself PHYSICAL EXAMINATION: BP 138/100 | Pulse 66 | Resp 20 | Ht 5' 8" (1.727 m) | Wt 218 lb (98.884 kg) | B NM 33.15 kg/m2 | SpO2 99% General appearance: alert, in no distress, cooperative Head: atraumatic, Normocephalic, without obvious abnormality Eyes: conjunctivae/corneas clear. PERRL, EOM's intact. Throat: Lips, mucosa (moist), and tongue normal. Teeth and gums normal Neck: supple, symmetrical, trachea midline, no adenopathy, thyroid: not enlarged , symmetric, no tenderness/mass/nodules, no carotid bruit and no JVD Lungs: clear to auscultation bilaterally, diminished breath sounds R base, anish l respiratory effort, rales R base Heart: normal rate and regular rhythm, systolic murmur 2/6 at 2nd left intercost al space Abdomen: Soft, non-tender. Bowel sounds normal. No masses, no organomegaly. Extremities: extremities normal, atraumatic, no cyanosis or edema, no edema, red ness or tenderness in the calves or thighs, strength and movt appropriate, anish l rom for developmental age. Distal pulse with 1+ bilateral dorsalis pedis, less er so with bilateral posterior sites. Skin: Skin color, texture, turgor normal. No rashes or lesions Neurologic: Grossly normal Musculoskeletal: no joint tenderness, deformity or swelling Assessment: Impression/Discussion: 61 y.o. presents with sob and cp with a prolonged period of dyspnea. Sx all occur at rest as he is sedentary most of the time. Has starte d to note extensive sx intensity over past few weeks with exertion. Complex of RLE swelling and cp syndrome with dyspnea concerning for acute VTE-> PE/DVT. COPD most probable No evidence on exam of CHF Certainly cardiac ischemia needs to be considered, but with his extensive hx, ad v disease, and sx complex, I am less likely to think of this has a primary cardi ac manifestation. Principal Problem: *COPD with acute exacerbation Active Problems: Peripheral arterial disease Leg edema, left Dyspnea Chest pain CAD (coronary artery disease) PLAN AND RECOMMENDATIONS: Admit disposition: admitted to the hospital Rationale for admission with details and management plans discussed with eugene ent. Invoke Pathway/Protocol: COPD exacerbation, serial r/o for cardiac event. Procedures: CTA chest with RLE DVT scan. Will initiate lovenox at 1mg/kg pres ently and change later if possible. Consultations: consider cardiology Discharge Planning: anticipate 3-5 days, Tentative disposition will most lik kelvin be SNF Follow clinical course to determine management changes as necessary. documented in this encounter Procedure Notes * Sgf Scanning, [facility] - 09/06/2012 8:47 PM CDT Associated Order(s): EKG 12-LEAD Electronically signed by Interface, [facility] [place] Sgf Transcriptions Incoming at 2 8:47 PM CDT * Sgf Scanning, [facility] - 09/05/2012 9:07 AM CDT Associated Order(s): TELEMETRY REPORT Electronically signed by Interface, [facility] [place] Sgf Transcriptions Incoming at 2 9:07 AM CDT documented in this encounter ED Notes * Cooper Ge DO - 09/02/2012 3:28 PM CDT HISTORY OF PRESENT ILLNESS Oliverio Dalton, a 61 y.o. male presents to the ED with a Chief Complaint of Ches t Pain and Shortness of Breath HPI Comments: THIS NOTE IS PREPARED BY EVELYN WALKER ACTING A SCRIBE FOR Leonides GE DO. H&P PERFORMED AT: 1530 PT IS A POOR HISTORIAN. PT IS A 61 Y/O MALE C/O CP AND SOB. NOTES NAUSEA. PCP DR MCCALLUM. PT HAS APPT WI TH DR ISSA NEXT MONTH. PT DENIES CP CURRENTLY. PT'S LAST HEART CATH WAS 3 YEARS AGO, DONE IN [place]. PT HAD STENTS PUT IN AND HAS HX OF 4 BYPASS'S. PT QUIT [facility] 20 YEARS AGO. PT HAS HX OF BLOOD CLOTS IN HEART. PT IS ON ASA AND PLAVIX. P T NOTES HIS O2 IS HELPING HIS SOB. PT HAS HX OF HIATAL HERNIA AND REFLUX. PT USE S HIS INHALER EVERYDAY. PT NOTES HIS CP IS WORSE WHEN STANDING. PT GETS MED REFI LLS AT [facility]. CAREGIVER STATES HE IS MORE CONFUSED THAN NORMAL AND TH AT HIS HEARTRATE DROPS INTO THE 40'S WHEN HE IS HAVING THE CHEST PAIN. HIS METOP ROLOL WAS JUST CHANGED 2 DAYS AGO TO 12.5 MG DAILY. HIS CAREGIVER ALSO FEELS HE SHOULD BE ON HOME OXYGEN FOR HIS SHORTNESS OF BREATH. PER RELATIVE- PT HAS HAD SOB, LEG EDEMA IN RIGHT LEG Patient is a 61 y.o. male presenting with chest pain. The history is provided by the patient, medical records, the EMS personnel and a caregiver. No language in terpreter was used. Chest Pain The chest pain began more than 1 month ago. Chest pain occurs intermittently. T he chest pain is gradually worsening. Associated with: UNKNOWN. The pain is curr ently at 1/10. The severity of the pain is moderate. The quality of the pain is described as heavy. The pain does not radiate. Exacerbated by: STANDING OR SITTI NG. Primary symptoms include a fever, shortness of breath and nausea. Pertinent negatives for primary symptoms include no cough and no vomiting. Pertinent negatives for associated symptoms include no diaphoresis. He tried not griselda for the symptoms. His past medical history is significant for COPD. Procedure history is negative for stress thallium. Risk factor(s) for DVT/PE do not include hemoptysis. Risk factor(s) for ischemic heart disease include male gender. REVIEW OF SYSTEMS Review of Systems Constitutional: Positive for fever. Negative for chills and diaphoresis. HENT: Negative for neck pain and neck stiffness. Eyes: Negative. Respiratory: Positive for shortness of breath. Negative for cough. Cardiovascular: Positive for chest pain. Gastrointestinal: Positive for nausea. Negative for vomiting and diarrhea. Genitourinary: Negative for dysuria and frequency. Musculoskeletal: Negative for back pain. Skin: Negative for rash. Neurological: Negative for headaches. Psychiatric/Behavioral: Negative for confusion and agitation. All other systems reviewed and are negative. PAST MEDICAL HISTORY REVIEWED No past medical history on file. No past surgical history on file. No family history on file. Social History Other Topics Concern Not on file History Social History Main Topics Smoking status: Not on file Smokeless tobacco: Not on file Alcohol Use: Not on file Drug Use: Not on file Sexually Active: Not on file There are no active problems to display for this patient. ALLERGIES Codeine; Doxycycline; Phenobarbital; Piperacillin-tazobactam; Terazosin; and Flores ium HOME MEDICATIONS Patient's Home Medications New Prescriptions for this Encounter Current Home Medications ALBUTEROL (PROAIR HFA) 90 MCG/ACTUATION INHALATION HFAA INHALER Take 2 Puffs by inhalation 2 times daily as needed. ASPIRIN (AMELIA) 81 MG ORAL TAB Take 81 mg by mouth daily with breakfast. BETHANECHOL (URECHOLINE) 25 MG ORAL TABLET Take 25 mg by mouth 4 times daily . CLOPIDOGREL (PLAVIX) 75 MG ORAL TAB Take 75 mg by mouth daily. DICLOFENAC SODIUM (VOLTAREN) 50 MG ORAL TBEC Take 50 mg by mouth 2 times conor ly with meals. Breakfast and Dinner ESOMEPRAZOLE (NEXIUM) 20 MG ORAL CPDR Take 20 mg by mouth daily before break fast. EZETIMIBE (ZETIA) 10 MG ORAL TABLET Take 10 mg by mouth daily at bedtime. FENOFIBRATE NANOCRYSTALLIZED (TRICOR) 145 MG ORAL TABLET Take 145 mg by mout h daily. FLAXSEED OIL 1,000 MG ORAL CAP Take 1,000 mg by mouth 3 times daily with delmi ls. FLUOXETINE (PROZAC) 20 MG ORAL TABLET Take 40 mg by mouth daily. FLUTICASONE (FLOVENT HFA) 110 MCG/ACTUATION INHALATION AERO Take 1 Puff by i nhalation 2 times daily. 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 LORATADINE (CLARITIN) 10 MG ORAL TABLET Take 10 mg by mouth daily. MAGNESIUM OXIDE 250 MG ORAL TAB Take 250 mg by mouth 3 times daily with meal s. METOPROLOL SUCCINATE ER 24 HOUR (TOPROL-XL) 25 MG ORAL TABLET Take 12.5 mg b y mouth daily. MULTIVITAMIN (DAILY-DAVID) ORAL TABLET Take 1 Tab by mouth daily after lunch. PHENYTOIN (DILANTIN) 200 MG ORAL CAP Take 200 mg by mouth 2 times daily. PIOGLITAZONE (ACTOS) 30 MG ORAL TABLET Take 30 mg by mouth daily with breakf ast. RAMIPRIL (ALTACE) 10 MG ORAL CAPSULE Take 10 mg by mouth daily with lunch. TAMSULOSIN (FLOMAX) 0.4 MG ORAL CAPSULE Take 0.4 mg by mouth daily with supp er. ZOLPIDEM (AMBIEN) 10 MG ORAL TABLET Take 10 mg by mouth nightly as needed. Medications Modified during this Encounter Medications Discontinued during this Encounter PHYSICAL EXAM Initial Vitals BP -- Pulse -- Resp -- Temp -- Temp src -- SpO2 -- Physical Exam Nursing note and vitals reviewed. Constitutional: He is oriented to person, place, and time. He appears well-devel oped and well-nourished. HENT: Head: Normocephalic and atraumatic. Mouth/Throat: Oropharynx is clear and moist. Eyes: EOM are normal. Pupils are equal, round, and reactive to light. Neck: Normal range of motion. Neck supple. Cardiovascular: Normal rate, regular rhythm and normal heart sounds. Exam revea ls no gallop and no friction rub. No murmur heard. Pulmonary/Chest: Effort normal and breath sounds normal. He has no wheezes. He h as no rales. Abdominal: Soft. There is no tenderness. OBESE Musculoskeletal: Normal range of motion. Neurological: He is alert and oriented to person, place, and time. Skin: Skin is warm and dry. Psychiatric: He has a normal mood and affect. His behavior is normal. DIAGNOSTICS LAB: Results for orders placed during the hospital encounter of 09/02/12 (from the [facility] 24 hour(s)) CBC WITH DIFFERENTIAL Component Value Range WBC 6.7 4.0-11.0 K/uL RBC 4.52 (*) 4.70-6.00 M/uL HEMOGLOBIN 13.3 (*) 13.5-18.0 g/dL HEMATOCRIT 38.0 (*) 42.0-52.0 % MCV 84.1 78.0-100.0 fL MCH 29.4 27.0-34.0 pg MCHC 35.0 31.0-37.0 g/dL RDW 14.5 12.0-15.0 % RDW-STDEV 43.8 37.1-48.7 fL PLATELETS 264 150-450 K/uL MPV 8.4 (*) 9.3-12.4 fL NEUTROPHILS 63 31-76 % LYMPHOCYTES 26 24-44 % MONOCYTES 8 2-11 % EOSINOPHILS 2 0-6 % BASOPHILS 0 0-2 % NEUTROPHIL ABSOLUTE 4.26 1.80-7.70 K/uL LYMPHOCYTE ABSOLUTE 1.77 1.00-4.80 K/uL MONOCYTE ABSOLUTE 0.55 0.10-1.30 K/uL EOSINOPHIL ABSOLUTE 0.14 0.00-0.70 K/uL BASOPHILS ABSOLUTE 0.01 0.00-0.20 K/uL IMMATURE GRANULOCYTES 0 <=2 % IMMATURE GRANULOCYTES ABSOLUTE 0.02 <=8.00 K/uL COMPREHENSIVE METABOLIC PANEL Component Value Range SODIUM 135 (*) 136-145 mmol/L POTASSIUM 4.8 3.5-5.1 mmol/L CHLORIDE 104 98-111 mmol/L CO2 23 22-31 mmol/L CALCIUM 9.0 8.3-10.3 mg/dL BUN 25 (*) 7-21 mg/dL CREATININE 1.15 0.61-1.24 mg/dL GLUCOSE 206 (*) 70-105 mg/dL TOTAL PROTEIN 7.1 5.6-8.0 g/dL ALBUMIN 4.4 3.3-4.8 g/dL BILIRUBIN TOTAL 0.3 0.2-1.3 mg/dL ALKALINE PHOSPHATASE 40 38-126 U/L AST 25 15-46 U/L ALT 19 11-66 U/L GFR 64 >=60 mL/min/1.73 sq meter GFR, 78 >=60 mL/min/1.73 sq meter CARDIAC ENZYMES Component Value Range TROPONIN I <0.06 0.00-0.40 ng/mL CKMB 2.8 0.6-6.3 ng/mL PROTIME-INR Component Value Range PROTIME 14.1 11.8-14.6 Seconds INR 1.1 0.9-1.2 PTT Component Value Range PTT 32.9 25.0-35.0 seconds BRAIN NATRIURETIC PEPTIDE, BNP OR PROBNP Component Value Range BRAIN NATRIURETIC PEPTIDE 169 (*) 0-100 pg/mL PHENYTOIN LEVEL, TOTAL Component Value Range PHENYTOIN TOTAL 25.3 (*) 10.0-20.0 ug/mL D-DIMER Component Value Range D-DIMER QUANT 0.36 0.00-0.46 ug/mL FEU POC, BLOOD GASES Component Value Range PH BLOOD POC 7.38 7.38-7.46 PCO2 POC 41 32-46 mm Hg POC PO2 79 74-108 mm Hg HCO3 (CALC) POC 24 21-29 mmol/L POC HEMOGLOBIN 12.2 (*) 13.5-18.0 g/dL BASE EXCESS POC -1 -2-2 mmol/L POC O2 SAT 95 92-98 % TOTAL CO2 POC 25 22-31 mmol/L POC SODIUM 137 136-145 meq/L POC POTASSIUM 4.8 3.5-5.1 meq/L POC HEMATOCRIT 36.0 (*) 37.0-47.0 % POC IONIZED CALCIUM 1.25 1.12-1.30 mg/dL POC GLUCOSE 258 (*) 65-99 mg/dL SPECIMEN SOURCE, GASES ART COMMENT, GASES POC Right Cj's Test Passed RADIOLOGY: XR CHEST PA AND LATERAL Radiologist Impression: Impression: No acute thoracic disease. Coronary artery stents. CABG. Contact number for further clinical information, imaging correlation/consultation, comments, follow-up information or questions, ([place], [place]): OFFICE: [phone] / personal office voice mailbox. OFFICE reading station: [phone]. Additional / secondary back up #s: [address] [facility] reading room, and [phone], or [phone]. [facility] page travelift operator for [employer] system use: [phone]. CT HEAD WO CONTRAST (Results Pending) EKG: FIRST ED EKG Signed and interpreted by the Emergency Physician. Time Performed: 1512 Time Interpreted: 1600 Rate: 66 BPM Interpretation: NSR, LOW VOLTAGE QRS, Q WAVES IN LEAD 3, T WAVE INVERSION IN AVL WITH DIFFUSE T WAVE FLATTENING PROCEDURES Procedures REEVALUATION 1700. Discussed labs, likely diagnosis, treatment plan, admission for cardiac ru le out and treatment of COPD. Discussed need to be compliant with medical treatm ents as he has not re-filled his inhalers for 2 months. Caregiver is pressing th at he needs home O2, however when the O2 is turned off, his O2 sats remain above 94%. He denies any chest pain currently. MEDICAL DECISION MAKING AND PLAN OF CARE . New Prescriptions for this Encounter Last vitals BP 138/100 | Pulse 66 | Resp 20 | SpO2 99% Coding Medications Administered During the ED Stay from 09/02/2012 1502 to 09/02/2012 1 739 Date/Time Order Dose Route Action 09/02/2012 1625 ipratropium-albuterol (DUONEB) 0.5 mg-3 mg(2.5 mg base)/3 mL in halation solution 3 mL 3 mL Inhalation Given CLINICAL IMPRESSION Encounter Diagnoses Name Primary? Chest pain Other dyspnea and respiratory abnormality COPD (chronic obstructive pulmonary disease) Non compliance with medical treatment CASE DISCUSSED Dr Duque at 1720 for admission. PATIENT COUNSELING Diagnostics reviewed and questions answered. Diagnosis, treatment options and p brianna of care discussed with understanding verbalized. DISPOSITION, EDUCATION AND MEDICATION RECONCILIATION Medications reconciled. See after visit summary for patient education on discha rged patients. The scribe's documentation has been prepared under my direction and personally r eviewed by me in its entirety. I confirm that the note above accurately reflects all work, treatment, procedures, and medical decision making performed by me. documented in this encounter Miscellaneous Notes * Scanned Form - Sgf Scanning, [facility] - 09/06/2012 7:50 PM CDT Electronically signed by Interface, [facility] [place] Sgf Transcriptions Incoming at 2 7:50 PM CDT * Scanned Form - Sgf Scanning, [facility] - 09/05/2012 9:07 AM CDT Electronically signed by Interface, [facility] [place] Sgf Transcriptions Incoming at 2 9:07 AM CDT * Scanned Form - Sgf Scanning, [facility] - 09/05/2012 9:07 AM CDT Electronically signed by Interface, [facility] [place] Sgf Transcriptions Incoming at 2 9:07 AM CDT * Patient Instructions - Sgf Scanning, Him - 09/05/2012 9:07 AM CDT Electronically signed by Interface, [facility] [place] Sgf Transcriptions Incoming at 2 9:07 AM CDT * Scanned Form - Sgf Scanning, Him - 2012 8:29 PM CDT Electronically signed by Interface, [facility] [place] Sgf Transcriptions Incoming at 2 8:29 PM CDT * Care Plan - Alexandra Go RN - 2012 11:01 AM CDT Problem: General Plan of Care (Adult, Obstetrics) Goal: Identify Discharge Needs Provide a safe discharge plan and seamless transition from hospital to [facility] of care. Outcome: Progressing See top case assembler progress notes documented in this encounter Plan of Treatment Not on filedocumented as of this encounter Procedures Comments Procedure Name Priority Date/Time Associated Diag nosis TX ELECTROCARDIOGRAM, Stat 09/06/2012 COMPLETE 8:47 PM CDT TELEMETRY REPORT 09/05/2012 9:07 AM CDT POC GLUCOSE Routine 2012 12:14 PM CDT US VENOUS DOPPLER LEG Stat 2012 Leg pain RIGHT 9:40 AM CDT Leg swelling Chest pain SOB (shortness of breath) CTA CHEST W WO CONTRAST Stat 2012 8:43 AM CDT POC GLUCOSE Routine 2012 6:41 AM CDT CARDIAC ENZYMES Routine 2012 4:23 AM CDT CBC WITH DIFFERENTIAL Routine 2012 4:23 AM CDT BASIC METABOLIC PANEL Routine 2012 4:23 AM CDT CARDIAC ENZYMES Routine 09/02/2012 11:20 PM CDT POC GLUCOSE Routine 09/02/2012 8:[address] HEAD WO CONTRAST Stat 09/02/2012 5:50 PM CDT POC, BLOOD GASES Stat 09/02/2012 4:41 PM CDT XR CHEST PA AND LATERAL 2 Stat 09/02/2012 VW 4:04 PM CDT CARDIAC ENZYMES Stat 09/02/2012 3:25 PM CDT CBC WITH DIFFERENTIAL Stat 09/02/2012 3:25 PM CDT PTT Add on 09/02/2012 3:25 PM CDT PROTIME-INR Add on 09/02/2012 3:25 PM CDT D-DIMER Stat 09/02/2012 3:25 PM CDT BRAIN NATRIURETIC Add on 09/02/2012 PEPTIDE, BNP OR PROBNP 3:25 PM CDT PHENYTOIN LEVEL, TOTAL Add on 09/02/2012 3:25 PM CDT COMPREHENSIVE METABOLIC Stat 09/02/2012 PANEL 3:25 PM CDT documented in this encounter Results * EKG 12-LEAD (09/06/2012 8:47 PM CDT) Narrative Performed At This result has an attachment that is n ot available. Transcriptions 09/06/2012 8:47 PM CDT * TELEMETRY REPORT (09/05/2012 9:07 AM CDT) Narrative Performed At This result has an attachment that is n ot available. Transcriptions 09/05/2012 9:07 AM CDT * POC GLUCOSE (2012 12:14 PM CDT) POC GLUCOSE 135 (H) 65 - 99 mg/dL [facility] [place] Specimen Capillary blood specimen (specimen) Performing Organization Address City/State/Zipcode Ph one Number [facility] CLIA # [id number] [place] [phone] - [place] 100 [facility] LABORATORY SERVICES CLIA # [id number] [place], [place] [address] - [place] [address] [facility] * US VENOUS DOPPLER LEG RIGHT (2012 9:40 AM CDT) Specimen Narrative Performed At [facility] Prior Exam: - Flow 1. Phasic, spontaneous w/response 2. Flow present w/augmentation 3. Continuous flow 4. No flow visualized 5. Unable to visualize vein 6. Reduced flow Image A. Compressible lumen B. Non compressible lumen C. Partially compressible lumen D. Unable to visualize vein Reflex (+) or (-) + = Present - = Absent Right Flow Image Reflux Deep Venous System External Iliac Commo n Femoral 1 A - Deep Femoral 1 A - Superficial Femoral 1 A - Popliteal 1 A - Anterior Tibial 2 A - Posterior Tibial 2 A - Peroneal 2 A - Superficial Venous System Proximal Saph enous H H H Distal Saphenous 2 A - Left Flow Image Reflux Deep Venous System External Iliac Commo n Femoral 1 A - Deep Femoral Superficial Femoral Popliteal Anterior Tibial Posterior Tibial Peroneal Superficial Venous System Proximal Saph enous Distal Saphenous Impression: Right: There is no evidence of deep o r superficial venous thrombosis. Left: There is no evidence of deep v enous thrombosis to the common femoral vein. Tech: RT Machine: 12-T Disc: 181 Image Quality: Good Fair Poor Reason: - Procedure Note Christoph Field MD - 09/04/2012 9:27 AM CDT [] [place] [] [facility] [] [place] [] [place] [] [place] [] [place] Prior Exam: - Flow 1. Phasic, spontaneous w/response 2. Flow present w/augmentation 3. Continuous flow 4. No flow visualized 5. Unable to visualize vein 6. Reduced flow Image A. Compressible lumen B. Non compressible lumen C. Partially compressible lumen D. Unable to visualize vein Reflex (+) or (-) + = Present - = Absent Right Flow Image Reflux Deep Venous System External Iliac Common Femoral 1 A - Deep Femoral 1 A - Superficial Femoral 1 A - Popliteal 1 A - Anterior Tibial 2 A - Posterior Tibial 2 A - Peroneal 2 A - Superficial Venous System Proximal Saphenous H H H Distal Saphenous 2 A - Left Flow Image Reflux Deep Venous System External Iliac Common Femoral 1 A - Deep Femoral Superficial Femoral Popliteal Anterior Tibial Posterior Tibial Peroneal Superficial Venous System Proximal Saphenous Distal Saphenous Impression: Right: There is no evidence of deep or superficial venous thrombosis. Left: There is no evidence of deep venous thrombosis to the common femoral vein. Tech: RT Machine: 12-T Disc: 181 Image Quality: [x] Good [] Fair [] Poor Reason: - * CTA CHEST W WO CONTRAST (2012 8:43 AM CDT) Specimen Impressions Performed At Impression: INTERFACE SYSTEM 1. No visualized large or central pulmo nary emboli, with limitation in evaluation of distal branches as discus sed. 2. No evidence of thoracic aortic aneur ysm or dissection. 3. Coronary artery calcification with e vidence of CABG surgery. 4. Cholecystectomy and 1.3 cm diameter nonobstructing left renal calculus. . Narrative Performed At CTA chest. INTERFACE SYSTEM History: Other - Please see comments . Dyspnea. Comparison: None available. Spiral images were obtained through the pulmonary arteries and aorta during intravenous injection of 86 mL o f Isovue 370. Subsequent spiral images obtained from the lung ap ices to the upper abdomen. The data was processed in the axial plane w ith coronal and three-dimensional maximum intensity pro jection images. Pulmonary arteries are suboptimally opa cified, with no visualized large or central pulmonary emboli. Ev aluation of distal segmental and subsegmental branches is limited. . A ortic atherosclerotic changes with ectasia. No aneurysm or evidence of dissection. Coronary artery calcification, with evidence of CABG valero rgery. Normal pericardium. No lymphadenopathy. No significant pulm onary parenchymal abnormalities. No significant pleural f luid collections. Evidence of cholecystectomy. 1.3 cm nonobstructin g calculus in the left renal pelvis. Normal osseous structures for a ge. . Procedure Note Interface, [facility] [place] Sgf Incoming Radiology Results - 2012 9:14 AM CDT CTA chest. History: Other - Please see comments . Dyspnea. Comparison: None available. Spiral images were obtained through the pulmonary arteries and aorta during intravenous injection of 86 mL of Isovue 370. Subsequent spiral images obtained from the lung apices to the upper abdomen. The data was processed in the axial plane with coronal and three-dimensional maximum intensity projection images. Pulmonary arteries are suboptimally opacified, with no visualized large or central pulmonary emboli. Evaluation of distal segmental and subsegmental branches is limited. . Aortic atherosclerotic changes with ectasia. No aneurysm or evidence of dissection. Coronary artery calcification, with evidence of CABG surgery. Normal pericardium. No lymphadenopathy. No significant pulmonary parenchymal abnormalities. No significant pleural fluid collections. Evidence of cholecystectomy. 1.3 cm nonobstructing calculus in the left renal pelvis. Normal osseous structures for age. . IMPRESSION Impression: 1. No visualized large or central pulmon [place] emboli, with limitation in evaluation of distal branches as discussed. 2. No evidence of thoracic aortic aneury sm or dissection. 3. Coronary artery calcification with ev idence of CABG surgery. 4. Cholecystectomy and 1.3 cm diameter n onobstructing left renal calculus. . Performing Organization Address [facility] one Number INTERFACE SYSTEM INTERFACE SYSTEM Refer to clinic/hospital department * POC GLUCOSE (2012 6:41 AM CDT) POC GLUCOSE 142 (H) 65 - 99 mg/dL [facility] [place] Specimen Capillary blood specimen (specimen) Performing Organization Address City/[facility] [place] Ph one Number [facility]ORY SERVICES CLIA # [id number] [place] [address] - [place] 100 [facility] LABORATORY SERVICES CLIA # [id number] [place] [address] - [place] [address] [facility] * BASIC METABOLIC PANEL (2012 4:23 AM CDT) SODIUM 137 136 - 145 mmol/L [facility] [place] POTASSIUM 4.6 3.5 - 5.1 mmol/L [facility] [place] CHLORIDE 105 98 - 111 mmol/L [facility] [place] CO2 26 22 - 31 mmol/L [facility] [place] CALCIUM 9.0 8.3 - 10.3 mg/dL [facility] - [place] BUN 20 7 - 21 mg/dL [facility] [place] CREATININE 0.98 0.61 - 1.24 mg/dL [facility] [place] GLUCOSE 138 (H) 70 - 105 mg/dL [facility] [place] GFR 77 >=60 mL/min/1.73 sq [facility] [place] GFR, 94 >=60 mL/min/1.73 sq [facility] - [place] Specimen Blood specimen (specimen) Narrative Performed At eGFR has not been validated for use in the elderly (> 70 years of age), [facility] women, patients with serious co-morbid conditions, or persons with extremes of SERVICES - [place] body size or muscle mass and should als o be interpreted with caution in patients with acute kidney failure, dialysis dep endant patients, patients reporting exceptional dietary intake (e.g. vegeta staci diet, high protein diets, creatine supplementation), and patients with sev ere liver disease. Based on National Kidney Disease Educat ion Program Performing Organization Address City/State/[facility] Ph one Number [facility] CLIA # [id number] [place] [phone] - [place] 100 [facility] LABORATORY SERVICES CLIA # [id number] [place] [phone] - [place] [address] [facility] * CBC WITH DIFFERENTIAL (2012 4:23 AM CDT) WBC 5.9 4.0 - 11.0 K/uL [facility] [place] RBC 4.40 (L) 4.70 - 6.00 M/uL [facility] [place] HEMOGLOBIN 12.9 (L) 13.5 - 18.0 g/dL [facility] HEM[facility]IT 37.1 (L) 42.0 - 52.0 % [facility] [place] MCV 84.3 78.0 - 100.0 fL [facility] [place] MCH 29.3 27.0 - 34.0 pg [facility] [place] MCHC 34.8 31.0 - 37.0 g/dL [facility] [place] RDW 14.5 12.0 - 15.0 % [facility] [place] RDW-STDEV 43.7 37.1 - 48.7 fL [facility] [place] 211 150 - 450 K/uL [facility] [place] MPV 8.6 (L) 9.3 - 12.4 fL [facility] [place] NEUTROPHILS 65 31 - 76 % [facility] [place] LYMPHOCYTES 24 24 - 44 % [facility] [place] MONOCYTES 8 2 - 11 % [facility] [place] EOSINOPHILS 2 0 - 6 % [facility] [place] BASOPHILS 0 0 - 2 % [facility] [place] NEUTROPHIL 3.82 1.80 - 7.70 K/uL [facility] [place] LYMPHOCYTE 1.43 1.00 - 4.80 K/uL [facility] [place] MONOCYTE 0.49 0.10 - 1.30 K/uL [facility] [place] EOSINOPHIL 0.11 0.00 - 0.70 K/uL [facility] [place] BASOPHILS 0.01 0.00 - 0.20 K/uL [facility] [place] IMMATURE 0 <=2 % [facility] - [place] IMMATURE 0.01 <=8.00 K/uL [facility] ABSOL[facility] - [place] Specimen Blood specimen (specimen) Performing Organization Address City/[facility] [place] [facility] Ph one [facility] SERVICES CLIA # [id number] [place] [address] - [place] 100 [facility] LABORATORY SERVICES CLIA # [id number] [place], [place] [address] - [place] [address] [facility] * CARDIAC ENZYMES (2012 4:23 AM CDT) TROPONIN I <0.06 0.00 - 0.40 ng/mL [facility] [place] CKMB 2.1 0.6 - 6.3 ng/mL [facility] [place] Specimen Blood specimen (specimen) Performing Organization Address City/[facility] [place] [place] Ph one Number [employer] LABORATORY SERVICES CLIA # [id number] [place] [address] - [place] 100 [facility] LABORATORY SERVICES CLIA # [id number] [place], [place] [address] - [place] 2817 [facility] * CARDIAC ENZYMES (09/02/2012 11:20 PM CDT) Pathologist [facility] TROPONIN I <0.06 0.00 - 0.40 ng/mL [facility] [place] CKMB 2.0 0.6 - 6.3 ng/mL [facility] [place] Specimen Blood specimen (specimen) Performing Organization Address [facility] [place] LAB[facility]ATORY [facility] CLIA # [id number] [place] [address] - [place] 100 [facility] LABORATORY SERVICES CLIA # [id number] [place], [place] [address] - [place] 2817 [facility] * POC GLUCOSE (09/02/2012 8:53 PM CDT) Pathologist [facility] POC GLUCOSE 194 (H) 65 - 99 mg/dL [facility] [place] Specimen Capillary blood specimen (specimen) Performing Organization Address [facility] LABORATORY SERVICES CLIA # [id number] [place] [address] - [place] 100 [facility] LABORATORY SERVICES CLIA # [id number] [place], [place] [address] - [place] 2817 [facility] * CT HEAD WO CONTRAST (09/02/2012 5:50 PM CDT) Specimen Narrative Performed At History: Confusion. [facility] CT head without contrast: No comparison studies. No evidence of acute intracranial hemorrhage, mass effect, o r midline shift. No visualized edema or loss of parsons matter/white massimo er differentiation. Mild generalized involutional changes, prima rily involving the frontal lobes. Ventricles within normal limit s of size. Cavum septum pellucida, normal variant. Normal donovan varium. Small retention cyst or polyp anteriorly in the left frontal si nus. Hypoplastic mastoid air cells bilaterally. Conclusion: No evidence of an acute int racranial process, with chronic findings as described above. Procedure Note [facility] Incoming Radiology Results - 09/02/2012 5:55 PM CDT History: Confusion. CT head without contrast: No comparison studies. No evidence of acute intracranial hemorrhage, mass effect, or midline shift. No visualized edema or loss of parsons matter/white matter differentiation. Mild generalized involutional changes, primarily involving the frontal lobes. Ventricles within normal limits of size. Cavum septum pellucida, normal variant. Normal calvarium. Small retention cyst or polyp anteriorly in the left frontal sinus. Hypoplastic mastoid air cells bilaterally. Conclusion: No evidence of an acute intracranial process, with chronic findings as described above. Performing Organization Address [facility] [place] [place] Ph one Number INTERFACE SYSTEM INTERFACE SYSTEM Refer to clinic/hospital department * POC, BLOOD GASES (09/02/2012 4:41 PM CDT) PH BLOOD POC 7.38 7.38 - 7.46 [facility] [place] PCO2 POC 41 32 - 46 mm Hg [facility] [place] POC PO2 79 74 - 108 mm Hg [facility] [place] HCO3 (CALC) POC 24 21 - 29 mmol/L [facility] [place] POC HEMOGLOBIN 12.2 (L) 13.5 - 18.0 g/dL [facility] [place] BASE EXCESS POC -1 -2 - 2 mmol/L [facility] [place] POC O2 SAT 95 92 - 98 % [facility] [place] TOTAL CO2 POC 25 22 - 31 mmol/L [facility] [place] POC SODIUM 137 136 - 145 meq/L [facility] [place] POC POTASSIUM 4.8 3.5 - 5.1 meq/L [facility] [place] POC HEMATOCRIT 36.0 (L) 37.0 - 47.0 % [facility] [place] POC IONIZED 1.25 1.12 - 1.30 mg/dL [facility] [place] POC GLUCOSE 258 (H) 65 - 99 mg/dL [facility] [place] SPECIMEN ART [facility] - [place] COMMENT, GASES Right Cj's Test Passed [facility] - [place] Specimen Blood specimen (specimen) Narrative Performed At References ranges displayed is for Blood Gas Arterial [facility] [place] Performing Organization Address [facility] [place] [place] Ph one Number [facility] LABORATORY SERVICES CLIA # [id number] [place] [address] - [place] 100 [facility] CLIA # [id number] [place] [address] - [address] [place] * XR CHEST PA AND LATERAL (09/02/2012 4:04 PM CDT) Specimen Impressions Performed At Impression: No acute thoracic disease. Coronary art len stents. CABG. INTERFACE SYSTEM Contact number for further clinical inf ormation, imaging correlation/consultation, comments, fol low-up information or questions, ([place], [place] ): OFFICE: [phone] / personal offic e voice mailbox. OFFICE reading station: [phone]. Additional / secondary back up #s: [address] [facility] reading room, and , or [phone]. [facility] page travelift operator for [employer] use: [phone]. Narrative Performed At PA and lateral chest x-ray with two views after chest pain shortness INTERFACE SYSTEM of breath 61-year-old male. Findings: CABG with cardiac enlargement with coronary artery stent suggesting LAD stent graft and circumfl ex with chronic changes lungs without pneumonia pneumothorax or failu re. No segmental atelectasis or pleural effusion. Cholecystectomy clips. No comparison studies are available at this time. No displaced rib fractures. Procedure Note Interface, [facility] Incoming Radiology Results - 09/02/2012 4:12 PM CDT PA and lateral chest x-ray with two views after chest pain shortness of breath 61-year-old male. Findings: CABG with cardiac enlargement with coronary artery stent suggesting LAD stent graft and circumflex with chronic changes lungs without pneumonia pneumothorax or failure. No segmental atelectasis or pleural effusion. Cholecystectomy clips. No comparison studies are available at this time. No displaced rib fractures. IMPRESSION Impression: No acute thoracic disease. Coronary artery stents. CABG. Contact number for further clinical information, imaging correlation/consultation, comments, follow-up information or questions, ([place], [place]): OFFICE: [phone] / personal office voice mailbox. OFFICE reading station: [phone]. Additional / secondary back up #s: [address] [facility] reading room, and [phone], or [phone]. [facility] page travelift operator for paging system use: [phone]. Performing Organization Address City/State/Zipcode Ph one Number INTERFACE SYSTEM INTERFACE SYSTEM Refer to clinic/hospital department * D-DIMER (09/02/2012 3:25 PM CDT) D-DIMER QUANT 0.36 0.00 - 0.46 ug/mL [facility] LABORATORY SERVICES - [place] Specimen Blood specimen (specimen) Narrative Performed At [facility] may lead to an underestimation of the d-Dimer level. [facility] [place] Performing Organization Address [facility] [place] LABORATORY SERVICES CLIA # [id number] [place] [address] - [place] 100 [facility] LABORATORY SERVICES CLIA # [id number] [place], [place] [address] - [place] 2817 [facility] * PHENYTOIN LEVEL, TOTAL (09/02/2012 3:25 PM CDT) [facility] PHENYTOIN TOTAL 25.3 (H) 10.0 - 20.0 ug/mL [facility] [place] Specimen Blood specimen (specimen) Performing Organization Address [facility] LABORATORY SERVICES CLIA # [id number] [place] [address] - [place] 100 [facility] LABORATORY SERVICES CLIA # [id number] [place], [place] [address] - [place] 2817 [facility] * BRAIN NATRIURETIC PEPTIDE, BNP OR PROBNP (09/02/2012 3:25 PM CDT) [facility] BRAIN 169 (H) 0 - 100 pg/mL [facility]AT[facility] PEPTIDE [facility] - [place] Specimen Blood specimen (specimen) Performing Organization Address [facility] Number [facility] LABORATORY SERVICES CLIA # [id number] [place] [address] - [place] 100 [facility] LABORATORY SERVICES CLIA # [id number] [place], [place] [address] - [place] 2817 [facility] * PTT (09/02/2012 3:25 PM CDT) Pathologist [facility] PTT 32.9 25.0 - 35.0 seconds [facility] [place] Specimen Blood specimen (specimen) Narrative Performed At PTT Therapeutic range 68 - 103 sec [facility] [place] Performing Organization Address [facility] LABORATORY SERVICES CLIA # [id number] [place] [address] - [place] 100 [facility] LABORATORY SERVICES CLIA # [id number] [place], [place] [address] - [place] 2817 [facility] * PROTIME-INR (09/02/2012 3:25 PM CDT) PROTIME 14.1 11.8 - 14.6 Seconds [facility] [place] INR 1.1 0.9 - 1.2 [facility] [place] Specimen Blood specimen (specimen) Narrative Performed At Therapeutic range: 2.0 - 3.5 [facility] [place] Performing Organization Address [facility] [place] LABORATORY SERVICES CLIA # [id number] [place] [address] - [place] 100 [facility] LABORATORY SERVICES CLIA # [id number] [place], [place] [address] - [place] 2817 [facility] * CARDIAC ENZYMES (09/02/2012 3:25 PM CDT) Pathologist [facility] TROPONIN I <0.06 0.00 - 0.40 ng/mL [facility] [place] CKMB 2.8 0.6 - 6.3 ng/mL [facility] [place] Specimen Blood specimen (specimen) Performing Organization Address [facility] [place] Number [facility] LABORATORY SERVICES CLIA # [id number] [place] [address] - [place] 100 [facility] LABORATORY SERVICES CLIA # [id number] [place], [place] [address] - [place] 2817 [facility] * COMPREHENSIVE METABOLIC PANEL (09/02/2012 3:25 PM CDT) SODIUM 135 (L) 136 - 145 mmol/L [facility] [place] POTASSIUM 4.8 3.5 - 5.1 mmol/L [facility] [place] CHLORIDE 104 98 - 111 mmol/L [facility] [place] CO2 23 22 - 31 mmol/L [facility] LABORATORY SERVICES - [place] CALCIUM 9.0 8.3 - 10.3 mg/dL [facility] [place] BUN 25 (H) 7 - 21 mg/dL [facility] [place] CREATININE 1.15 0.61 - 1.24 mg/dL [facility] [place] GLUCOSE 206 (H) 70 - 105 mg/dL [facility] - [place] TOTAL PROTEIN 7.1 5.6 - 8.0 g/dL [facility] - [place] ALBUMIN 4.4 3.3 - 4.8 g/dL [facility] - [place] BILIRUBIN TOTAL 0.3 0.2 - 1.3 mg/dL [facility] [place] ALKALINE 40 38 - 126 U/L [employer] [facility]OSPHAT[facility] LAB[facility]ATORY [facility] - [place] AST 25 15 - 46 U/L [facility] [place] ALT 19 11 - 66 U/L [facility] [place] GFR 64 >=60 mL/min/1.73 sq [facility] [place] GFR, 78 >=60 mL/min/1.73 sq [facility] - [place] Specimen Blood specimen (specimen) Narrative Performed At eGFR has not been validated for use in the elderly (> 70 years of age), [facility] women, patients with serious co-morbid conditions, or persons with extremes of SERVICES - [place] body size or muscle mass and should als o be interpreted with caution in patients with acute kidney failure, dialysis dep endant patients, patients reporting exceptional dietary intake (e.g. vegeta staci diet, high protein diets, creatine supplementation), and patients with sev ere liver disease. Based on National Kidney Disease Educat ion Program Performing Organization Address City/State/[facility] Ph one Number [facility]OR[facility] SERVICES CLIA # [id number] [place] [address] - [place] 100 [facility] LABORATORY SERVICES CLIA # [id number] [place] [address] - [place] 2817 [facility] * CBC WITH DIFFERENTIAL (09/02/2012 3:25 PM CDT) WBC 6.7 4.0 - 11.0 K/uL [facility] [place] RBC 4.52 (L) 4.70 - 6.00 M/uL [facility] [place] HEMOGLOBIN 13.3 (L) 13.5 - 18.0 g/dL [facility] [place] HEMATOCRIT 38.0 (L) 42.0 - 52.0 % [facility] [place] MCV 84.1 78.0 - 100.0 fL [facility] - [place] MCH 29.4 27.0 - 34.0 pg [facility] [place] MCHC 35.0 31.0 - 37.0 g/dL [facility] - [place] RDW 14.5 12.0 - 15.0 % [facility] [place] RDW-STDEV 43.8 37.1 - 48.7 fL [facility] - [place] PLATELETS 264 150 - 450 K/uL [facility] [place] MPV 8.4 (L) 9.3 - 12.4 fL [facility] - [place] NEUTROPHILS 63 31 - 76 % [facility] [place] LYMPHOCYTES 26 24 - 44 % [facility] [place] MONOCYTES 8 2 - 11 % [facility] [place] EOSINOPHILS 2 0 - 6 % [facility] [place] BASOPHILS 0 0 - 2 % [facility] [place] NEUTROPHIL 4.26 1.80 - 7.70 K/uL [facility] - [place] LYMPHOCYTE 1.77 1.00 - 4.80 K/uL [facility] [place] MONOCYTE 0.55 0.10 - 1.30 K/uL [facility] [place] EOSINOPHIL 0.14 0.00 - 0.70 K/uL [facility] [place] BASOPHILS 0.01 0.00 - 0.20 K/uL [facility] [place] IMMATURE 0 <=2 % [facility] - [place] IMMATURE 0.02 <=8.00 K/uL [facility]AT[facility] ABSOLUTE SERVICES - [place] Specimen Blood specimen (specimen) Performing Organization Address City/State/Zipcode Ph one Number [facility]ORATORY SERVICES CLIA # [id number] [place] [address] - [place] 100 [facility] LABORATORY SERVICES CLIA # [id number] [place] [address] - [place] 5[address] [facility] documented in this encounter Visit Diagnoses Diagnosis COPD with acute exacerbation - Primary Obstructive chronic bronchitis with exa cerbation Chest pain, chronic Chest pain, unspecified Other dyspnea and respiratory abnormali ty COPD (chronic obstructive pulmonary dis ease) Chronic airway obstruction, not elsewhe re classified Non compliance with medical treatment Personal history of noncompliance with medical treatment, presenting hazards to health Leg pain Pain in limb Leg swelling Swelling of limb SOB (shortness of breath) Shortness of breath 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 Peripheral arterial disease Unspecified disorders of arteries and a rterioles Dyspnea, chronic Other dyspnea and respiratory abnormali ty documented in this encounter Administered Medications Action Date Dose Rate Site Medication Order MAR Action 2012 9:04 AM CDT 81 mg aspirin (AMELIA CHEWABLE) chew tablet 81 Given mg 81 mg, Oral, DAILY WITH BREAKFAST, Firs t dose on 09/03/12 at 0800, Until Discontinued, Routine 2012 1:02 PM CDT 25 mg bethanechol (URECHOLINE) tablet 25 mg Given 25 mg, Oral, FOUR TIMES DAILY, First dose on Wed09/02/12 at 2230, Until Discontinued, Routine 25 mg Given 2012 9:02 AM CDT 25 mg Given 09/02/2012 11:35 PM CDT 2012 9:03 AM CDT 10 mg cetirizine (ZYRTEC) tablet 10 mg Given 10 mg, Oral, DAILY, First dose on 09/03/12 at 0900, Until Discontinued, Routine 2012 9:03 AM CDT 75 mg clopidogrel (PLAVIX) tablet 75 mg Given 75 mg, Oral, DAILY, First dose on Wed09/03/12 at 0900, Until Discontinued, Routine 2012 9:02 AM CDT 100 mg docusate sodium (COLACE) capsule 100 mg Given 100 mg, Oral, TWO TIMES DAILY, First dose on Wed09/02/12 at 2230, Until Discontinued, Routine 100 mg Given 09/02/2012 11:35 PM CDT 09/02/2012 10:17 PM CDT 100 mg Abdomen, Right Lower Quadrant enoxaparin (LOVENOX) injection 100 mg Given 100 mg (1 mg/kg 98.9 kg), subCUT, EVERY 12 HOURS, First dose on Wed09/02/12 at 2015, Until Discontinued, Routine 2012 9:03 AM CDT 100 mg Abdomina l Tissue enoxaparin (LOVENOX) injection 100 mg Given 100 mg (1 mg/kg 100 kg Order-specific weight), subCUT, EVERY 12 HOURS, First dose on Wed09/03/12 at 0900, Until Discontinued, Routine 09/02/2012 11:34 PM CDT 10 mg ezetimibe (ZETIA) tablet 10 mg Given 10 mg, Oral, DAILY AT BEDTIME, First dose on Wed09/02/12 at 2230, Until Discontinued, Routine 2012 9:03 AM CDT 160 mg fenofibrate tablet 160 mg Given 160 mg, Oral, DAILY, First dose on Wed09/03/12 at 0900, Until Discontinued, Routine 2012 9:03 AM CDT 40 mg FLUoxetine (PROZAC) capsule 40 mg Given 40 mg, Oral, DAILY, First dose on Wed09/03/12 at 0900, Until Discontinued, Routine 2012 9:03 AM CDT 1 Puff fluticasone (FLOVENT HFA) 110 Given mcg/actuation inhaler 1 Puff 1 Puff, Inhalation, TWICE DAILY RESPIRATORY, First dose on Wed09/02/12 at 2230, Until Discontinued, Routine 1 Puff Given 09/02/2012 11:35 PM CDT 2012 1:02 AM CDT 1 Tablet HYDROcodone-acetaminophen (NORCO) 5-325 Given mg per tablet 1 Tab 1 Tablet, Oral, EVERY 4 HOURS PRN, Starting 09/03/12 at 0054, Until Sa t 09/03/12 at 1716, Pain, Moderate, Routine 2012 8:25 AM CDT 86 mL iopamidol (ISOVUE 370) 76 % injection Given 100 mL 100 mL, IV, INTRA-PROCEDURE ONCE, 1 dose, Starting 09/03/12 at 0854, Until 09/03/12 at 0825, Routine 09/02/2012 4:24 PM CDT 3 mL ipratropium-albuterol (DUONEB) 0.5 mg-3 Given mg(2.5 mg base)/3 mL inhalation solutio n 3 mL 3 mL, Inhalation, ONE TIME ONLY RESPIRATORY, 1 dose, Wed09/02/12 at 1615, Routine 2012 7:46 AM CDT 3 mL ipratropium-albuterol (DUONEB) 0.5 mg-3 Given mg(2.5 mg base)/3 mL inhalation solutio n 3 mL 3 mL, Inhalation, EVERY 6 HOURS RESPIRATORY, First dose on 09/03/12 at 0100, Until Discontinued, Routine 3 mL Given 2012 1:19 AM CDT 2012 6:27 AM CDT 60 mg isosorbide mononitrate SR 24 hour Given (IMDUR) tablet 60 mg 60 mg, Oral, DAILY EARLY, First dose on Wed09/03/12 at 0600, Until Discontinued, Routine 09/02/2012 11:34 PM CDT 500 mg levofloxacin (LEVAQUIN) tablet 500 mg Given 500 mg, Oral, DAILY AT BEDTIME, First dose on Wed09/02/12 at 2300, Until Discontinued, Routine 2012 1:02 PM CDT 200 mg magnesium oxide (MAG-OX) tablet 200 mg Given 200 mg, Oral, THREE TIMES DAILY WITH MEALS, First dose on Wed09/03/12 at 0800, Until Discontinued, Routine 200 mg Given 2012 9:02 AM CDT 2012 2:40 AM CDT 3 mg morphine 4 mg/mL injection 3 mg Given 3 mg, IV, EVERY 3 HOURS PRN, Starting Wed09/03/12 at 0218, Until Wed 2 at 1716, for severe pain, Routine 2012 1:02 PM CDT 1 Tablet multivitamin (DAILY-DAVID) tablet 1 Tab Given 1 Tablet, Oral, DAILY AFTER LUNCH, Firs t dose on Wed09/03/12 at 1300, Until Discontinued, Routine 2012 8:49 AM CDT 4 mg ondansetron (ZOFRAN) 4 mg/2 mL injection Given 4 mg 4 mg, IV, EVERY 5 MINUTES PRN, 2 doses, Starting Wed09/02/12 at 2220, Until Sa t 09/03/12 at 1716, Nausea/Emesis, Routin e 2012 9:02 AM CDT 40 mg pantoprazole (PROTONIX) tablet 40 mg Given 40 mg, Oral, DAILY BEFORE BREAKFAST, First dose on 09/03/12 at 0730, Until Discontinued, Routine 2012 9:02 AM CDT 200 mg phenytoin sodium extended release Given (DILANTIN) capsule 200 mg 200 mg, Oral, TWO TIMES DAILY, First dose on Wed09/02/12 at 2230, Until Discontinued, Routine 200 mg Given 09/02/2012 11:34 PM CDT 2012 1:03 PM CDT 10 mg ramipril (ALTACE) capsule 10 mg Given 10 mg, Oral, DAILY WITH LUNCH, First dose on 09/03/12 at 1200, Until Discontinued, Routine 2012 6:00 AM CDT 30 mL/hr sodium chloride 0.45 % infusion Rate Verify IV, at 30 mL/hr, CONTINUOUS, Starting Wed09/02/12 at 2230, Until Sat 2 at 1119, Routine 30 mL/hr New Bag 09/02/2012 11:35 PM CDT 2012 8:21 AM CDT 10 mL sodium chloride 0.9 % flush injection 10 Given mL 10 mL, IV, ONE TIME ONLY, 1 dose, 09/03/12 at 0900, Routine 09/02/2012 11:31 PM CDT 3 mL sodium chloride 0.9 % flush injection 3 Given mL 3 mL, IV, TWO TIMES DAILY, First dose o n Wed09/02/12 at 2230, Until Discontinued, Routine 2012 12:32 AM CDT 10 mg zolpidem (AMBIEN) tablet 10 mg Given 10 mg, Oral, NIGHTLY PRN, Starting Wed09/02/12 at 2220, Until 09/03/12 at 1716, Insomnia, Routine documented in this encounter
--- OUTSIDE RECORDS SUMMARY | 2020-03-24 13:43 | XMS REPORT | Encounter Summary ---
Author Author [facility], [place], [place], [place], [facility] Organization [facility] [place], [place], [place], [facility] Address Unknown Phone Unavailable Care Team Providers Care Mail Handlers Supervisor Name Role Phone Claus Couch MD PCP Encounter Details Care Team Description Date Type Department Walter Oconnor MD 100 [facility] [address] [place] [id number] CORON ATHEROSCL [place] CORON VESSEL (Farhana sigrid Dx) 01/15/2004 Inpatient [facility]E Historical MEDICAL CARDIAC [...] encounter Visit Diagnoses Diagnosis Coronary atherosclerosis of [place] thom nary artery - Primary documented in this encounter
--- OUTSIDE RECORDS SUMMARY | 2020-03-24 13:43 | XMS REPORT | Encounter Summary ---
Author Author [facility] [place], [place], [place], [facility] Organization [facility] [place], [place], [facility] Address Unknown Phone Unavailable Care Team Providers Care Quality Improvement Coordinator (Rn) Name Role Phone Claus Couch MD PCP Encounter Details Care Team Description Date Type Department Patel, Ran Cid DO Pre-operative respiratory examination (P rimary Dx); Cor athrscl-uns vessel 02/05/2011 Outpatient [place] Conversion Historical [address] [place] [id number] Social History Date Tobacco Use Types Packs/Day Years Used Never Assessed Sex Assigned at Date Recorded Not on file Industry Job Start Date Occupation Not on file Not on file Not on file Travel End Travel History Travel Start No recent travel history available. documented as of this encounter Plan of Treatment Not on filedocumented as of this encounter Visit Diagnoses Diagnosis Pre-operative respiratory examination - Primary Coronary atherosclerosis of unspecified type of vessel, [place] or graft documented in this encounter
--- OUTSIDE RECORDS SUMMARY | 2020-03-24 13:43 | XMS REPORT | Encounter Summary ---
Author Author [facility], [place], [place], [place], [facility] Organization [facility] [place], [place], [place], [facility] Address Unknown Phone Unavailable Care Team Providers Care Apartment Maintenance Technician Name Role Phone Claus Couch MD PCP Encounter Details Care Team Description Date Type Department Walter Oconnor MD 100 [facility] [address] [place] [id number] Coronary atherosclerosis of [place] coron [place] artery (Primary Dx); DM w/o complication type II 09/08/2010 Outpatient [place] Conversion Historical [address] [facility] [place] [id number] Social History Date Tobacco Use Types Packs/Day [...] encounter Visit Diagnoses Diagnosis Coronary atherosclerosis of [place] thom nary artery - Primary Type II or unspecified type diabetes me llitus without mention of complication, not stated as uncontrolled documented in this encounter
--- OUTSIDE RECORDS SUMMARY | 2020-03-24 13:43 | XMS REPORT | Encounter Summary ---
Author [facility] [place], [place], [facility] Organization [facility] Zhanna Anderson, [place], [facility] Address Unknown Phone Unavailable Care Team Providers Care Transit Planning Director Name Role Phone Claus Couch MD PCP Encounter Details Care Team Description Date Type Department Walter Oconnor MD 100 [facility] [address] [place] [phone] Coronary Atherosclerosis of [place] Coron rolando Artery (Primary Dx) 10/05/2006 Inpatient [facility]W Historical CARDIAC TELEMETRY 100 [facility] [place] [phone] Social History Date Tobacco Use Types [...] encounter Visit Diagnoses Diagnosis Coronary atherosclerosis of [place] thom nary artery - Primary documented in this encounter
--- OUTSIDE RECORDS SUMMARY | 2020-03-24 13:43 | XMS REPORT | Encounter Summary ---
Author Author [facility], [place], [place], [facility] Organization [facility] [place], [facility] Address Unknown Phone Unavailable Care Team Providers Care Animal Rides Manager Name Role Phone Claus Couch MD PCP Encounter Details Care Team Description Date Type Department Walter Oconnor MD 100 [facility] [address] [place] [phone] CORON ATHEROSCL VEIN BYPASS GRFT (Primar y Dx) 10/06/2005 Inpatient [facility] 7E Historical MEDICAL CARDIAC [address] [facility] [place] [phone] Social History Date [...] encounter Visit Diagnoses Diagnosis 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
--- OUTSIDE RECORDS SUMMARY | 2020-03-24 13:43 | XMS REPORT | Encounter Summary ---
Author Author [facility] [place], [place], [place], [facility] Organization [facility] [place], [place], [facility] Address Unknown Phone Unavailable Care Team Providers Care Director Of Cloud Services Name Role Phone Claus Couch MD PCP Encounter Details Care Team Description Date Type Department Jese Tinajero MD NO ADDRESS ON FILE Coronary atherosclerosis of [place] coron rolando artery (Primary Dx); Other and unspecified angina pectoris 02/06/2011 Outpatient [facility] [address] [place] [address] Social History Date Tobacco Use Types Packs/Day [...] encounter Visit Diagnoses Diagnosis Coronary atherosclerosis of [place] thom nary artery - Primary Other and unspecified angina pectoris documented in this encounter
--- OUTSIDE RECORDS SUMMARY | 2020-03-24 13:43 | XMS REPORT | Encounter Summary ---
Author Author [facility], [place], [place], [place], [facility] Organization [facility] [place], [place], [place], [facility] Address Unknown Phone Unavailable Care Team Providers Care Banking Paralegal Name Role Phone Claus Couch MD PCP Encounter Details Care Team Description Date Type Department Corey Santillan MD 100 [facility] [address] [place] [phone] Walter Oconnor MD 100 [facility] [address] [place] [phone] SUBENDO FIRST EPISODE CARE (Primary Dx) 04/30/2005 Inpatient [facility] 7E Historical MEDICAL CARDIAC [address] [facility] [place] [phone] Social History [...] as of this encounter Visit Diagnoses Diagnosis Acute myocardial infarction, subendocar dial infarction, initial episode of care - Primary documented in this encounter
--- OUTSIDE RECORDS SUMMARY | 2020-03-24 13:43 | XMS REPORT | Encounter Summary ---
Author Author [facility], [place], [place], [place], [facility] Organization [facility] [place], [place], [place], [facility] Address Unknown Phone Unavailable Care Team Providers Care Cableway Operator Name Role Phone Claus Couch MD PCP Encounter Details Care Team Description Date Type Department Walter Oconnor MD 100 [facility] [address] [place] [phone] Shahram Wiggins MD [address] [facility] [address] [place], [place] [address] CORON ATHEROSCL [place] CORON VESSEL (Farhana sigrid Dx) 09/14/2005 Inpatient [facility] 7E Historical MEDICAL CARDIAC [address] [place] [phone] Social History Date Tobacco Use Types Packs/Day [...] encounter Visit Diagnoses Diagnosis Coronary atherosclerosis of [place] thom nary artery - Primary documented in this encounter
--- OUTSIDE RECORDS SUMMARY | 2020-03-24 13:43 | XMS REPORT | Encounter Summary ---
Author Author [facility], [place], [facility] Organization [facility] Zhanna Go, [place], [facility] Address Unknown Phone Unavailable Care Team Providers Care Bankruptcy Processor Name Role Phone Claus Couch MD PCP Encounter Details Care Team Description Date Type Department Walter Oconnor MD 100 [facility] [address] [place] [phone] Coronary atherosclerosis of [place] coron rolando artery (Primary Dx) 02/05/2011 Inpatient [facility] 7E Historical MEDICAL CARDIAC 2727 [facility] [place] [phone] Social History Date [...] encounter Visit Diagnoses Diagnosis Coronary atherosclerosis of [place] thom nary artery - Primary documented in this encounter
--- OUTSIDE RECORDS SUMMARY | 2020-03-24 13:43 | XMS REPORT | Encounter Summary ---
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
--- OUTSIDE RECORDS SUMMARY | 2020-03-24 13:43 | XMS REPORT | Encounter Summary ---
Author Author [facility] [place], [place], [place], [place] Organization [facility] [place], [place], [place], [place] Address Unknown Phone Unavailable Care Team Providers Care Civil Engineering Technician Name Role Phone Claus Couch MD PCP Encounter Details Care Team Description Date Type Department Walter Oconnor MD 100 [facility] [address] [place] [phone] Coronary atherosclerosis of [place] coron rolando artery (Primary Dx) 02/05/2011 Outpatient [facility] Conversion Historical [address] [facility] [place] [address] Social History Date Tobacco Use Types Packs/Day [...] encounter Visit Diagnoses Diagnosis Coronary atherosclerosis of [place] thom nary artery - Primary documented in this encounter
--- OUTSIDE RECORDS SUMMARY | 2020-03-24 13:44 | XMS REPORT | Encounter Summary ---
Author Author [facility] Organization [facility] Address Unknown Phone Unavailable Care Team Providers Care Operations Recruiter Name Role Phone Claus Couch MD PCP Encounter Details Care Team Description Date Type Department Claus Couch MD [address] [place] [address] 11/17/2018 [facility] [address] [place] [address] Social History Date Tobacco Use Types Packs/Day Years Used Quit: 03/08/1995 Current Every Day Smoker Cigarettes 2 40 Smokeless Tobacco: Never Used Comments: Restarted smoking cigarettes 1 pack every two weeks since 05/2013. Drinks/Week oz/Week Comments Alcohol Use No Sex Assigned at Date Recorded Not on file Industry Job Start Date Occupation Not on file Not on file Not on file Travel End Travel History Travel Start No recent travel history available. documented as of this encounter Plan of Treatment Not on filedocumented as of this encounter Visit Diagnoses Not on filedocumented in this encounter Additional Health Concerns Assessment Noted Time A Hypertension Plan of Care has been documented for jeremias krueger patient 02/12/2017 12:54 PM CDT A Depression follow-up plan has been documented for jeremias krueger patient 03/14/2018 11:52 AM CDT documented as of this encounter
--- OUTSIDE RECORDS SUMMARY | 2020-03-24 13:44 | XMS REPORT | Encounter Summary ---
Author Author [facility], [place], [facility] Organization [facility] Zhanna [place], [place], [facility] Address Unknown Phone Unavailable Care Team Providers Care Labels Molder Name Role Phone Claus Couch MD PCP Encounter Details Care Team Description Date Type Department Walter Oconnor MD 100 [facility] [address] [place] [phone] ESOPHAGEAL REFLUX (Primary Dx) 03/21/2003 Inpatient [facility] [place] [facility] 7E Historical MEDICAL CARDIAC [address] [facility] [place] [phone] Social History Date [...] as of this encounter Visit Diagnoses Diagnosis Esophageal reflux - Primary documented in this encounter
--- OUTSIDE RECORDS SUMMARY | 2020-03-24 13:44 | XMS REPORT | Encounter Summary ---
Author Author [facility], [place], [place], [facility] Organization [facility], [place], [facility] Address Unknown Phone Unavailable Care Team Providers Care Porter Luggage Name Role Phone Claus Couch MD PCP Encounter Details Care Team Description Date Type Department Walter Oconnor MD 100 [facility] [address] [place] [phone] CORON ATHEROSCL VEIN BYPASS GRFT (Primar y Dx) 04/10/[address] [facility] 7E Historical MEDICAL CARDIAC 27[address] [facility] [place] [phone] Social History [...]
--- OUTSIDE RECORDS SUMMARY | 2020-03-24 13:44 | XMS REPORT | Encounter Summary ---
Author Author [facility] Organization [facility] Address Unknown Phone Unavailable Care Team Providers Care Turret Press Operator Name Role Phone Claus Couch MD PCP Encounter Details Care Team Description Date Type Department Claus Couch MD [address] [place] [phone] 11/24/2018 [facility] rvices Encounter [address] [phone] Social History Date Tobacco Use Types Packs/Day [...] Date End Date Medication Sig Dispensed Refills 11/17/2018 nicotine (NICODERM CQ) 21 APPLY 1 PATCH 30 Patch 3 mg/24 hr patch TO SKIN DIRECTED EVERY 24 HOURS. 11/04/2018 Magnesium 250 mg Tablet Take 1 Tablet 60 Tablet 5 by mouth every 12 hours. 11/03/2018 temazepam (RESTORIL) 7.5 TAKE 1 30 Capsule 2 mg capsule CAPSULE BY MOUTH NIGHTLY NEEDED FOR INSOMNIA 11/03/2018 LORazepam (ATIVAN) 1 mg TAKE ONE 60 Tablet 2 tablet TABLET BY MOUTH TWICE DAILY 11/03/2018 THERAPY M 9 mg iron-400 TAKE 1 TABLET 30 Tablet mcg Tablet BY MOUTH ONCE DAILY 11/03/2018 raNITIdine (ZANTAC) 150 TAKE 1 TABLET 30 Tablet mg tablet BY MOUTH NIGHTLY AT BEDTIME. 11/03/2018 ramipril (ALTACE) 5 mg TAKE 1 30 Capsule capsule CAPSULE BY MOUTH DAILY 11/03/2018 clopidogrel (PLAVIX) 75 TAKE 1 TABLET 30 Tablet mg Tablet BY MOUTH ONCE DAILY 11/03/2018 pioglitazone (ACTOS) 30 TAKE 1 TABLET 30 Tablet mg tablet BY MOUTH ONCE DAILY 11/03/2018 ezetimibe (ZETIA) 10 mg TAKE 1 TABLET 30 Tablet tablet BY MOUTH DAILY AT BEDTIME. 11/03/2018 fenofibrate TAKE 1 TABLET 30 Tablet nanocrystallized (TRICOR) BY MOUTH ONCE 145 mg tablet DAILY WITH SUPPER 11/03/2018 OLANZapine (ZyPREXA) 2.5 TAKE 1 TABLET 30 Tablet mg tablet BY MOUTH NIGHTLY AT BEDTIME 11/03/2018 tamsulosin (FLOMAX) 0.4 TAKE 1 30 Capsule mg capsule CAPSULE BY MOUTH DAILY 30 MINUTES AFTER SUPPER 11/03/2018 traZODone (DESYREL) 50 mg TAKE 1 TABLET 30 Tablet tablet BY MOUTH NIGHTLY AT BEDTIME 11/03/2018 simvastatin (ZOCOR) 40 mg TAKE ONE 30 Tablet tablet TABLET (40MG) BY MOUTH EVERY DAY IN THE EVENING 11/03/2018 bethanechol (URECHOLINE) TAKE 1 TABLET 120 Tablet 25 mg tablet (25 MG) BY MOUTH 4 TIMES DAILY. 11/03/2018 phenytoin sodium TAKE 2 120 Capsule (DILANTIN) 100 mg CAPSULES (200 extended release capsule MG) BY MOUTH 2 TIMES DAILY. 11/03/2018 FLUoxetine (PROzac) 20 mg TAKE 2 30 Capsule capsule CAPSULES (40 MG) BY MOUTH DAILY 10/11/2018 ondansetron (ZOFRAN ODT) DISSOLVE 1 30 Tablet 0 4 mg Tablet, Rapid TABLET (4 MG) Dissolve ON TOP OF TONGUE EVERY 8 HOURS NEEDED FOR NAUSEA/VOMITI NG. 04/27/2018 multivitamin (DAILY-DAVID) Take 1 Tablet 30 Tablet 5 tablet by mouth daily with lunch. 04/27/2018 nitroglycerin (NITROSTAT) DISSOLVE 1 25 Tablet 0.4 mg Tablet, Sublingual TABLET UNDER TONGUE EVERY 5 MINUTES NEEDED FOR CHEST KULDEEP N. DO NOT EXCEED 3 DOSES.. 04/27/2018 nystatin (NYSTOP) 100,000 Apply to 60 Gram unit/gram powder affected area 2 times daily. 03/10/2018 HYDROcodone-acetaminophen Take 1-2 60 Tablet 0 (NORCO) 5-325 mg tablet Tablets by mouth every 4 hours as needed for Pain. Max Daily Amount: 12 Tablets 01/05/2018 albuterol HFA 90 mcg Take 2 Puffs 8.5 Gram 11 inhaler by inhalation every 4 hours as needed for Shortness of Br eath.. 08/04/2017 sennosides-docusate [The details 30 Tablet 5 sodium (SENOKOT-S) 8.6-50 of the mg tablet medication are not available because there are pending changes by a home health clinician.] 07/21/2017 gabapentin (NEURONTIN) Take 1 30 Capsule 5 300 mg capsule Capsule (300 mg) by mouth daily at bedtime. 03/25/2017 isosorbide mononitrate TAKE ONE 60 Tablet 5 (IMDUR) 60 mg Extended TABLET BY Release 24 hour tablet MOUTH 2 TIMES A DAY 03/01/2017 loratadine (CLARITIN) 10 Take 1 Tab by 30 Tablet 5 mg tablet mouth daily. 09/04/2016 fluticasone (FLOVENT HFA) Take 1 Puff 12 Gram 5 110 mcg/actuation HFA by inhalation Aerosol Inhaler 2 times daily.. 03/08/2015 polyethylene glycol 3350 Take 1 SCOOP 527 Gram 0 (MIRALAX) 17 gram/dose (17 Gram) by Powder mouth daily Dissolve in 8 ounces of fluid and drink entire liquid. 08/30/2012 blood sugar diagnostic In the am & 1 Package 0 (ACCU-CHEK ACTIVE TEST) pm prn Misc Strp 12/29/2007 BETIMOL 0.5 % OP Drop Administer 1 0 Drop in both eyes 2 times daily. 11/03/2018 12/06/2018 oxyCODONE (OxyCONTIN) 20 TAKE 1 TABLET 60 Tablet 0 mg Controlled Release 12 BY MOUTH hour crush resistant EVERY 12 tablet HOURS MAX OF 2 TABLETS PER DAY documented as of this encounter Plan of Treatment Not on filedocumented as of this encounter Procedures Comments Procedure Name Priority Date/Time Associated Diag nosis XR HAND 3+ VW RIGHT Routine 11/24/2018 Hand pain, right 10:42 AM DRYING TUMBLER OPERATOR documented in this encounter Results * XR HAND 3+ VW RIGHT (11/24/2018 10:42 AM DRYING TUMBLER OPERATOR) Specimen Impressions Performed At Impression: INTERFACE SYSTEM 1. Osteoporosis. 2. Old healed fracture deformity of the distal fourth and fifth metacarpals. 3. Healed fracture of the base of the f ifth metacarpal. 4. No acute fracture or dislocation. Narrative Performed At Right hand, three views. INTERFACE SYSTEM History: Pain. Comparison: 03/26/2015 The soft tissues are normal. Bones are osteoporotic. Other old healed fractures of the distal fourth and fift h metacarpals with volar angulation and foreshortening. Previous ly demonstrated nondisplaced fracture of the base of the fifth metac arpal has completely healed. Joint spaces are fairly well-preserved. No evidence of acute fracture, dislocation or other signific ant skeletal abnormality. Procedure Note Bong El Incoming Radiology Results - 11/24/2018 11:34 AM DRYING TUMBLER OPERATOR Right hand, three views. History: Pain. Comparison: 03/26/2015 The soft tissues are normal. Bones are osteoporotic. Other old healed fractures of the distal fourth and fifth metacarpals with volar angulation and foreshortening. Previously demonstrated nondisplaced fracture of the base of the fifth metacarpal has completely healed. Joint spaces are fairly well-preserved. No evidence of acute fracture, dislocation or other significant skeletal abnormality. Impression: 1. Osteoporosis. 2. Old healed fracture deformity of the distal fourth and fifth metacarpals. 3. Healed fracture of the base of the fi fth metacarpal. 4. No acute fracture or dislocation. Performing Organization Address City/State/Zipcode Ph one Number INTERFACE SYSTEM INTERFACE SYSTEM Refer to clinic/hospital department documented in this encounter Visit Diagnoses Diagnosis Hand pain, right Pain in limb documented in this encounter Additional Health Concerns Assessment Noted Time A Hypertension Plan of Care has been documented for t he patient 02/12/2017 12:54 PM CDT A Depression follow-up plan has been documented for t he patient 03/14/2018 11:52 AM CDT documented as of this encounter
--- OUTSIDE RECORDS SUMMARY | 2020-03-24 13:44 | XMS REPORT | Encounter Summary ---
Author Author [facility] [place], [facility] Organization [facility] Zhanna Go, [place], [facility] Address Unknown Phone Unavailable Care Team Providers Care Radar Engineer Name Role Phone Claus Couch MD PCP Encounter Details Care Team Description Date Type Department Walter Oconnor MD 100 [facility] [address] [place] [phone] Coronary atherosclerosis of [place] coron [place]lando artery (Primary Dx) 05/04/2000 Inpatient [facility] 7E Historical MEDICAL CARDIAC [address] [facility] [place] [phone] Social History [...] encounter Visit Diagnoses Diagnosis Coronary atherosclerosis of [place] thom nary artery - Primary documented in this encounter
--- OUTSIDE RECORDS SUMMARY | 2020-03-24 13:44 | XMS REPORT | Encounter Summary ---
Author Author [facility] Address Unknown Phone Unavailable Care Team Providers Care Hydrodynamics Professor Name Role Phone Claus Couch MD PCP Reason for Visit * Reason Comments Medication Refill Encounter Details Care Team Description Date Type Department Claus Couch MD [address] [place] [address] 12/07/2018 Refill [facility] Primar y Care [place] [address] [place] [address] Social History Date Tobacco Use [...]
--- OUTSIDE RECORDS SUMMARY | 2020-03-24 13:44 | XMS REPORT | Encounter Summary ---
Author Author [facility] Organization [facility] Address Unknown Phone Unavailable Care Team Providers Care Jde Developer Name Role Phone Claus Couch MD PCP Reason for Visit * Reason Comments Medication Refill Encounter Details Care Team Description Date Type Department Claus Couch MD [address] [place] [address] 11/17/2018 Refill [facility] Primar y Care [place] [address] [place] [address] Social History Date Tobacco Use [...]
--- OUTSIDE RECORDS SUMMARY | 2020-03-24 13:44 | XMS REPORT | Encounter Summary ---
Author Author [facility] [place], [facility] Organization [facility] [place], [place], [facility] Address Unknown Phone Unavailable Care Team Providers Care Etl Informatica Developer Name Role Phone Claus Couch MD PCP Encounter Details Care Team Description Date Type Department Walter Oconnor MD 100 [facility] [address] [place] [phone] AFTERCARE REVENUE RESEARCH ANALYST ANTICOAG USE (Primar y Dx) 04/18/2003 Inpatient [facility] [place] [phone] Social History Date Tobacco Use Types Packs/Day Years Used Never Assessed Sex Assigned at Date Recorded Not on file Industry Job Start Date Occupation Not on file Not on file Not on file Travel End Travel History Travel Start No recent travel history available. documented as of this encounter Plan of Treatment Not on filedocumented as of this encounter Visit Diagnoses Diagnosis half-way (current) use of anticoagulan ts - Primary Long-term (current) use of anticoagulan ts documented in this encounter
--- OUTSIDE RECORDS SUMMARY | 2020-03-24 13:44 | XMS REPORT | Encounter Summary ---
Author Author [facility] Organization [facility] Address Unknown Phone Unavailable Care Team Providers Care Product Lead Name Role Phone Claus Couch MD PCP Reason for Visit * Reason Comments Medication Refill Encounter Details Care Team Description Date Type Department Claus Couch MD [address] [place] [address] 11/04/2018 Refill [facility] Primar y Care [place] [address] [place] [address] Social History Date Tobacco Use [...]
--- OUTSIDE RECORDS SUMMARY | 2020-03-24 13:44 | XMS REPORT | Clinical Summary ---
Author Author [facility] Organization [facility] Address Unknown Phone Unavailable Care Team Providers Care Research Instrumentation Technician Name Role Phone Claus Couch MD PCP Allergies Comments Active Allergy Reactions Severity Noted Date Codeine Unknown Doxycycline Rash 04/26/2012 Penicillins Hives High 04/09/2008 "relaxes me too much" "relaxes me too much" Phenobarbital Weakness 09/02/2012 Breaks out Breaks out Piperacillin-Tazobactam Hives, Rash 09/02/2012 Sulfamethoxazole-Trimetho Nausea and 07/04/2015 prim Vomiting Pt states he has allergy, but can't recall reaction. Pt states he has allergy, but can't recall reaction. Chest heaviness, chest pain Chest heaviness, chest pain Terazosin Other (See 04/09/2008 Comments), Unknown Allergy recorded in SMS: Valium~Reactions: STOPS BREATHING "stops breathing, no pulse" Unresponsiveness "stops breathing, no pulse" "stops breathing, no pulse" Unresponsiveness "stops breathing, no pulse" Unresponsiveness "stops breathing, no pulse" Diazepam Other (See High 07/15/2005 Comments), Anaphylaxis Medications End Date Status Medication Sig Dispensed Refills Start Date Active BETIMOL 0.5 % OP Drop Administer 1 0 12/29/19 0 Drop in both 8 eyes 2 times daily. Active blood sugar diagnostic In the am & 1 Package 0 (ACCU-CHEK ACTIVE TEST) pm prn 2 Misc Strp Active polyethylene glycol 3350 Take 1 SCOOP 527 Gram 0 (MIRALAX) 17 gram/dose (17 Gram) by 5 Powder mouth daily Dissolve in 8 ounces of fluid and drink entire liquid. Active fluticasone (FLOVENT HFA) Take 1 Puff 12 Gram 5 110 mcg/actuation HFA by inhalation 6 Aerosol Inhaler 2 times daily.. Active loratadine (CLARITIN) 10 Take 1 Tab by 30 Tablet 5 mg tablet mouth daily. 7 Active isosorbide mononitrate TAKE ONE 60 Tablet 5 (IMDUR) 60 mg Extended TABLET BY 7 Release 24 hour tablet MOUTH 2 TIMES A DAY Active gabapentin (NEURONTIN) Take 1 30 Capsule 300 mg capsule Capsule (300 7 mg) by mouth daily at bedtime. Active sennosides-docusate [The details 30 Tablet 08/04 sodium (SENOKOT-S) 8.6-50 of the 7 mg tablet medication are not available because there are pending changes by a home health clinician.] Additional Information Patient taking differently: 1 Tablet Oral DAILY PRN, Constipation, Reason: Other (Comments) (diarrhea if takes daily), Informant: Caregiver, Reported on 04/02/2018 5:59 AM Active albuterol HFA 90 mcg Take 2 Puffs 8.5 Gram 12/10 inhaler by inhalation 8 every 4 hours as needed for Shortness of Br eath.. Active HYDROcodone-acetaminophen Take 1-2 60 Tablet 0 (NORCO) 5-325 mg tablet Tablets by 8 mouth every 4 hours as needed for Pain. Max Daily Amount: 12 Tablets Active multivitamin (DAILY-DAVID) Take 1 Tablet 30 Tablet tablet by mouth 8 daily with lunch. Active nitroglycerin (NITROSTAT) DISSOLVE 1 25 Tablet 04/09 0.4 mg Tablet, Sublingual TABLET UNDER 8 TONGUE EVERY 5 MINUTES NEEDED FOR CHEST KULDEEP N. DO NOT EXCEED 3 DOSES.. Active nystatin (NYSTOP) 100,000 Apply to 60 Gram 04/09 unit/gram powder affected area 8 2 times daily. Active ondansetron (ZOFRAN ODT) DISSOLVE 1 30 Tablet 0 1 4 mg Tablet, Rapid TABLET (4 MG) 8 Dissolve ON TOP OF TONGUE EVERY 8 HOURS NEEDED FOR NAUSEA/VOMITI NG. Active temazepam (RESTORIL) 7.5 TAKE 1 30 Capsule 2 1 mg capsule CAPSULE BY 8 MOUTH NIGHTLY NEEDED FOR INSOMNIA Active LORazepam (ATIVAN) 1 mg TAKE ONE 60 Tablet 2 tablet TABLET BY 8 MOUTH TWICE DAILY Active THERAPY M 9 mg iron-400 TAKE 1 TABLET 30 Tablet mcg Tablet BY MOUTH ONCE 8 DAILY Active raNITIdine (ZANTAC) 150 TAKE 1 TABLET 30 Tablet mg tablet BY MOUTH 8 NIGHTLY AT BEDTIME. Active ramipril (ALTACE) 5 mg TAKE 1 30 Capsule 01 capsule CAPSULE BY 8 MOUTH DAILY Active clopidogrel (PLAVIX) 75 TAKE 1 TABLET 30 Tablet mg Tablet BY MOUTH ONCE 8 DAILY Active pioglitazone (ACTOS) 30 TAKE 1 TABLET 30 Tablet mg tablet BY MOUTH ONCE 8 DAILY Active ezetimibe (ZETIA) 10 mg TAKE 1 TABLET 30 Tablet tablet BY MOUTH 8 DAILY AT BEDTIME. Active fenofibrate TAKE 1 TABLET 30 Tablet nanocrystallized (TRICOR) BY MOUTH ONCE 8 145 mg tablet DAILY WITH SUPPER Active OLANZapine (ZyPREXA) 2.5 TAKE 1 TABLET 30 Tablet 11/03 mg tablet BY MOUTH 8 NIGHTLY AT BEDTIME Active tamsulosin (FLOMAX) 0.4 TAKE 1 30 Capsule mg capsule CAPSULE BY 8 MOUTH DAILY 30 MINUTES AFTER SUPPER Active traZODone (DESYREL) 50 mg TAKE 1 TABLET 30 Tablet 10/09 tablet BY MOUTH 8 NIGHTLY AT BEDTIME Active simvastatin (ZOCOR) 40 mg TAKE ONE 30 Tablet 10/09 tablet TABLET (40MG) 8 BY MOUTH EVERY DAY IN THE EVENING Active bethanechol (URECHOLINE) TAKE 1 TABLET 120 Tablet 11/03 25 mg tablet (25 MG) BY 8 MOUTH 4 TIMES DAILY. Active phenytoin sodium TAKE 2 120 Capsule (DILANTIN) 100 mg CAPSULES (200 8 extended release capsule MG) BY MOUTH 2 TIMES DAILY. Active FLUoxetine (PROzac) 20 mg TAKE 2 30 Capsule 10/09 capsule CAPSULES (40 8 MG) BY MOUTH DAILY Active Magnesium 250 mg Tablet Take 1 Tablet 60 Tablet 5 by mouth 8 every 12 hours. Active nicotine (NICODERM CQ) 21 APPLY 1 PATCH 30 Patch 3 mg/24 hr patch TO SKIN 9 DIRECTED EVERY 24 HOURS. Active oxyCODONE (OxyCONTIN) 20 Take 1 Tablet 56 Tablet 0 mg Controlled Release 12 (20 mg) by 9 hour crush resistant mouth every tablet 12 hours. Max Daily Amount: 40 mg Status Hospital, Clinic, or Ordered Dose Route Frequency Start End Date Other Facility Date Administered Medication Active betamethasone acetate & 12 mg Intra-arTICu ONE TIME ONLY 06/30/20 [facility] (CELESTONE 17 SOLUSPAN) 6 mg/mL injection 12 mgIndications: Rotator cuff tear arthropathy of both shoulders Active betamethasone acetate & 12 mg Intra-arTICu ONE TIME ONLY 06/30/20 sod phos (CELESTONE 17 SOLUSPAN) 6 mg/mL injection 12 mgIndications: Rotator cuff tear arthropathy of both shoulders Active betamethasone acetate & 6 mg Intra-arTICu ONE TIME ONLY 09/29/20 sod phos (CELESTONE 17 SOLUSPAN) 6 mg/mL injection 6 mgIndications: Olecranon bursitis, left elbow Active betamethasone acetate & 12 mg Intra-arTICu ONE TIME ONLY 10/20/20 sod phos (CELESTONE 17 SOLUSPAN) 6 mg/mL injection 12 mgIndications: Olecranon bursitis, right elbow Active betamethasone acetate & 6 mg Intra-arTICu ONE TIME ONLY 10/20/20 sod phos (CELESTONE 17 SOLUSPAN) 6 mg/mL injection 6 mgIndications: Olecranon bursitis, right elbow Active betamethasone acetate & 12 mg Intra-arTICu ONE TIME ONLY 11/30/19 sod phos (CELESTONE 18 SOLUSPAN) 6 mg/mL injection 12 mgIndications: Primary osteoarthritis of left knee Active betamethasone acetate & 12 mg Intra-arTICu ONE TIME ONLY 11/30/19 sod phos (CELESTONE 18 SOLUSPAN) 6 mg/mL injection 12 mgIndications: Primary osteoarthritis of right knee Active betamethasone acetate & 12 mg Intra-arTICu ONE TIME ONLY 04/28/20 sod phos (CELESTONE 18 SOLUSPAN) 6 mg/mL injection 12 mgIndications: Complete tear of right rotator cuff, Right rotator cuff tendonitis Active betamethasone acetate & 9 mg Intra-arTICu ONE TIME ONLY 05/18/20 sod phos (CELESTONE 18 SOLUSPAN) 6 mg/mL injection 9 mgIndications: Right lateral epicondylitis Active betamethasone acetate & 12 mg Intra-arTICu ONE TIME ONLY 05/25/20 sod phos (CELESTONE 18 SOLUSPAN) 6 mg/mL injection 12 mgIndications: Primary osteoarthritis of left knee Active Problems Problem Noted Date Closed fracture of right hip 07/04/2018 Acute MN, subendocardial 07/04/2018 Fall from standing 07/04/2018 Anemia, chronic disease 07/04/2018 Right lateral epicondylitis 05/18/2018 Stable angina 01/05/2018 Major depression 01/05/2018 Hyponatremia 04/17/2017 Oral thrush 04/17/2017 Left hip pain 04/16/2017 Hyponatremia 04/16/2017 Frequent falls 04/16/2017 Acute cystitis without hematuria 04/16/2017 Closed displaced fracture of middle phalanx of right little finger 07/02/2016 Cigarette dependence 08/26/2015 Ulcers of both lower legs, limited to breakdown of sk in 07/15/2015 Status post right inguinal hernia repair 03/14/2015 Status post colonoscopy 01/10/2014 Diabetes mellitus 04/25/2013 CAD (coronary artery disease) 04/25/2013 COPD (chronic obstructive pulmonary disease) 013 Seizure disorder 04/25/2013 Depression 04/25/2013 Suicidal behavior 04/25/2013 Carpal tunnel syndrome 11/30/2012 Osteoarthritis of right knee 10/24/2012 LFT elevation 10/13/2012 Renal stone 10/12/2012 Back pain 10/12/2012 Bradycardia 09/05/2012 Status post laparoscopic appendectomy 05/28/2012 Umbilical hernia without mention of obstruction or ga ngrene 05/28/2012 Tubular adenoma 02/05/2009 Hyperlipidemia 11/12/2008 Essential hypertension Seizure Hypertrophy of prostate without urinary obstruction and other lower urinary tract symptoms (LUTS) Neurogenic bladder Unspecified glaucoma(365.9) Bipolar disorder Pressure ulcer of coccygeal region, sta ge 3 Decubitus ulcer of left buttock, stage 3 Decubitus ulcer of right buttock, stage 3 Resolved Problems Problem Noted Date Resolved Date Fracture of phalanx of finger 06/10/2016 07/01/20 16 Right inguinal hernia 03/04/2015 07/01/2016 Ulnar nerve entrapment at wrist 11/30/20122012 Renal stone 10/12/2012 05/16/2013 Abdominal pain, suprapubic 09/05/2012 10/28/2014 Urinary retention 09/05/2012 05/16/2013 Tendonitis of foot 07/14/2012 05/16/2013 Acute appendicitis 05/28/2012 09/05/2012 MRSA (methicillin resistant staph aureus) culture positive 09/12/2010 07/01/2016 Cellulitis 09/10/2010 09/05/2012 Personal history of colonic polyps 02/06/200907/2013 Coronary atherosclerosis of unspecified type of vesse l, [place] or graft 05/16/2013 Chronic airway obstruction, not elsewhere classified 05/16/2013 Immunizations Name Administration Dates Next Due Dexamethasone Sodium 01/27/2012 Phosphate 4 Mg/mL Injection Influenza Vaccine 08/12/2012, 01/30/2009, Influenza Vaccine High 09/23/2018, 08/13/2017, Dose 65+ Yrs IM Influenza Vaccine Split 08/26/2015, 10/25/2014, 3+ Yrs IM Influenza Vaccine Split 12/28/2013, 08/10/2012 3+ Yrs PF IM Ketorolac 30 Mg/ml 09/01/2011 Injection Methylprednisolone 01/27/2012 Acetate 80 Mg/mL Injection Pneumococcal 13-valent 08/26/2015, 06/02/2012 Conjugate Vaccine Pneumococcal 11/27/2016 Polysaccharide Vaccine 23-Valent IM Pneumococcal Vaccine 08/29/2006 TDAP Vaccine > 7 YO IM 11/30/2015 Family History Medical History Relation Name Comments Lung Cancer Brother Seizures Brother Healthy Daughter Healthy Daughter Healthy Daughter Other Father "brain anuerysm" Asthma Mother Diabetes Mother Other Mother Blood pressure Respiratory Disease Mother Asthma Sister Diabetes Sister Heart Disease Sister Other Sister Blood pressure Respiratory Disease Sister Heart Disease Son Han Healthy Son Healthy Son Healthy Son Healthy Son Relation Name Status Comments Brother Brother Alive Brother Alive Daughter Alive Daughter Alive Daughter Alive Father Mother Sister Alive Sister Alive Sister Alive Son Han Alive Son Alive Son Alive Son Alive Son Alive Social History Date Tobacco Use Types Packs/Day Years Used Quit: 03/08/1995 Current Every Day Smoker Cigarettes 2 40 Smokeless Tobacco: Never Used Tobacco Cessation: Ready to Quit: No Comments: Restarted smoking cigarettes 1 pack every two weeks since 05/2013. Drinks/Week oz/Week Comments Alcohol Use No Sex Assigned at Date Recorded Not on file Industry Job Start Date Occupation Not on file Not on file Not on file Travel End Travel History Travel Start No recent travel history available. Last Filed Vital Signs Reading Time Taken Comments Vital Sign 102/62 11/24/2018 10:17 AM [employer] Blood Pressure 92 08/30/2018 11:15 AM CDT Pulse 36.6 C (97.8 F) 11/24/2018 10:17 AM LEADITE HEATER Temperature 18 08/30/2018 11:15 AM CDT Respiratory Rate 97% 08/24/2018 3:35 PM CDT Oxygen Saturation - - Inhaled Oxygen Concentration 65.3 kg (144 lb) 11/24/2018 10:17 AM LEADITE HEATER Weight 167.6 cm (5' 6") 11/24/2018 10:17 AM LEADITE HEATER Height 23.24 11/24/2018 10:17 AM LEADITE HEATER Body Mass Index Plan of Treatment Health Maintenance Due Date Last Done Comments ZOSTER VACCINE (1 of 2) 1999 DIABETES MICROALBUMIN 01/05/2019 01/05/2018, 04/0 05/2017, 08/15/2012, ANNUAL SCREEN Additional history exists DIABETES ANNUAL FOOT EXAM 03/14/2019 03/14/2018, 03/14/2018, 02/12/2017, Additional history exists DIABETES HBA1C Q 6 MONTHS 03/23/2019 09/23/2018, 06/22/2018, 01/05/2018, Additional history exists DIABETES ANNUAL RETINAL 03/29/2019 03/29/2018 EXAM INFLUENZA VACCINE 06/08/2019 09/23/2018, 017, 08/13/2017, Additional history exists LDL CHOLESTEROL ANNUAL 09/23/2019 09/23/2018, , 09/24/2017, Additional history exists COLORECTAL SCREENING 12/28/2023 12/28/2013, 02/01, 02/22/2008, Additional history exists PNEUMOCOCCAL VACCINE 65+ Completed 11/27/2016, 1 , 06/02/2012 YEARS Implants Device Identifier Shelf Expiration Date Model / Serial / L ot Implanted Type Area Manufactur er 09/08/2019 [id number] / / [id number] Mesh 3d Max Med Rt [id number] - Mesh Right: Inguinal CR BARD- [id number] [email or web address] Implanted: Qty: 1 on 03/08/2015 by Mary Zhou MD at [facility] Results Not on filefrom Last 3 Months Insurance Type Payer Benefit Subscriber ID Effective Phone Address Plan / Dates Group Medicare Managed Care MC GENERIC [place] MC GENERIC [id number] 2016-P C[place]ENTRY resent [facility] Medicare Managed Care [place]TRA [place] ADVANTRA [id number] 2016-P [phone] [address] resent [address] [place] [address] Medicaid Managed [facility] [id number] 2013- [facility] Present HEALTH PLAN [facility] RX Medicare Part D RX AETNA RX MEDD [id number] Effective [phone] AETNA PDP for all AND [place] dates PLANS RX Medicare Part D RX AETNA RX MEDD [id number] Effective [phone] AETNA PDP for all AND [place] dates PLANS [phone] Oliverio Dalton Personal/F Self [address] amily (Home) [place] [id number] Oliverio Dalton Personal/F Self [address] [place] (Home) [place] [phone] Oliverio Dalton Personal/F Self 1950 [address] am[place] (Home) [place] [phone] Advance Directives For more information, please contact: [phone] 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 Explanation Type Date Recorded Advance Directive POA Advance Directive 10/22/2009 1:10 PM POA Advance Directive POA Advance Directive 07/13/2012 2:33 PM POA Advance Directive 09/15/2010 11:20 AM POA Advance Directive POA Advance Directive 04/02/2017 10:05 AM POA Advance Directive 04/02/2017 10:05 AM POA Advance Directive 02/08/2013 3:18 PM Living Will Date Inactivated Comments Code Status Date Activated 04/21/2017 2:11 PM Full Code 04/19/2017 1:49 PM 04/19/2017 1:48 PM Full Code 04/16/2017 12:30 PM 11/27/2016 3:04 PM Full Code 11/26/2016 3:35 PM 03/09/2015 2:05 AM Full Code 03/08/2015 9:46 AM 12/28/2013 1:50 PM Full Code 12/28/2013 7:55 AM
--- OUTSIDE RECORDS SUMMARY | 2020-03-24 13:44 | XMS REPORT | Encounter Summary ---
Author Author [facility], [place], [place], [place], [facility] Organization [facility] [place], [place], [place], [facility] Address Unknown Phone Unavailable Care Team Providers Care Agricultural Education Instructor Name Role Phone Claus Couch MD PCP Encounter Details Care Team Description Date Type Department Ulices Castrejon MD [address] [place] [phone] Walter Oconnor MD [address] [facility] [address] [place] [phone] Coronary atherosclerosis of [place] coron rolando artery (Primary Dx) 06/02/2000 Inpatient [facility] ELIDA LARRY [address] Historical CARDIAC SURGERY [facility] [place] [phone] Social History Date Tobacco Use Types Packs/Day [...] encounter Visit Diagnoses Diagnosis Coronary atherosclerosis of [place] thom nary artery - Primary documented in this encounter
--- OUTSIDE RECORDS SUMMARY | 2020-03-24 13:44 | XMS REPORT | Encounter Summary ---
Author Author [facility] Organization [facility] Address Unknown Phone Unavailable Care Team Providers Care Campus Monitor Name Role Phone Claus Couch MD PCP Encounter Details Care Team Description Date Type Department Claus Couch MD [address] [place] [address] Ftsc, Outpt Lab 11/24/2018 [facility] Outpatient Encounter Laboratory [address] [address] Social History Date Tobacco Use [...] Procedure Name Priority Date/Time Associated Diag nosis URIC ACID Routine 11/24/2018 Hand pain, righ t 10:37 AM NURSE ADVISOR documented in this encounter Results * URIC ACID (11/24/2018 10:37 AM NURSE ADVISOR) URIC ACID 3.6 3.4 - 7.0 mg/dL [facility] [employer] [facility] [place] Specimen Blood Performing Organization Address City/State/[facility] Ph one Number [facility] CLIA# [id number] [place], [place] [address] - [place] [address] documented in this encounter Visit Diagnoses Diagnosis [...]
--- OUTSIDE RECORDS SUMMARY | 2020-03-24 13:44 | XMS REPORT | Encounter Summary ---
Author Author [facility] Organization [facility] Address Unknown Phone Unavailable Care Team Providers Care Elementary Classroom Teacher Name Role Phone Claus Couch MD PCP Reason for Visit * Reason Comments Medication Refill Encounter Details Care Team Description Date Type Department Claus Couch MD [address] [place] [address] 12/06/2018 Refill [facility] Primar y Care [place] [address] [place] [address] Social History Date Tobacco Use [...]
--- OUTSIDE RECORDS SUMMARY | 2020-03-24 13:44 | XMS REPORT | Encounter Summary ---
[facility] [place] [place], [facility] Organization [facility] [place], [place], [facility] Address Unknown Phone Unavailable Care Team Providers Care Shop Service Technician Name Role Phone Claus Couch MD PCP Encounter Details Care Team Description Date Type Department Walter Oconnro MD [address] [facility] [address] [place] [phone] Other chest pain (Primary Dx) 05/02/2001 Inpatient [facility] ELIDA LARRY [address] Historical MEDICAL CARDIAC [address] [facility] [place] [phone] Social History Date Tobacco [...]
--- OUTSIDE RECORDS SUMMARY | 2020-03-24 13:44 | XMS REPORT | Encounter Summary ---
Author Author [facility] Organization [facility] Address Unknown Phone Unavailable Care Team Providers Care Saxophone Teacher Name Role Phone Claus Couch MD PCP Reason for Visit * Reason Comments Medication Refill Encounter Details Care Team Description Date Type Department Claus Couch MD [address] [place] [address] 11/03/2018 Refill [facility] Primar y Care [place] [address] [place] [address] Social History Date Tobacco Use [...]
--- OUTSIDE RECORDS SUMMARY | 2020-03-24 13:44 | XMS REPORT | Encounter Summary ---
Author Author [facility] Organization [facility] Address Unknown Phone Unavailable Care Team Providers Care Channeler Runner Name Role Phone Claus Couch MD PCP Reason for Visit * Reason Comments Finger Injury right middle finger and 3rd and 4th finger and into hand pain no known injury Encounter Details Care Team Description Date Type Department Claus Couhc MD [address] [place] [address] Hand pain, right (Primary Dx); Seizure; Bipolar affective disorder, remission status unspecified; Stable angina 11/24/2018 Office Visit [facility] [address] [place] [address] Social History Date Tobacco Use [...] Comments Vital Sign 102/62 11/24/2018 10:17 AM CHANGE BOOTH ATTENDANT Blood Pressure - - Pulse 36.6 C (97.8 F) 11/24/2018 10:17 AM CHANGE BOOTH ATTENDANT Temperature - - Respiratory Rate - - Oxygen Saturation - - Inhaled Oxygen Concentration 65.3 kg (144 lb) 11/24/2018 10:17 AM CHANGE BOOTH ATTENDANT Weight 167.6 cm (5' 6") 11/24/2018 10:17 AM CHANGE BOOTH ATTENDANT Height 23.24 11/24/2018 10:17 AM CHANGE BOOTH ATTENDANT Body Mass Index documented in this encounter Progress Notes * Claus Couch MD - 11/25/2018 11:47 AM CHANGE BOOTH ATTENDANT Oliverio Dalton is a 68 y.o. male History of Present Illness HPI Chief Complaint Patient presents with Finger Injury right middle finger and 3rd and 4th finger and into hand pain no known injury Patient states this is been going on for the last 2-3 days patient does have a h istory of fracture on the fifth finger but now he is getting to the point where he cannot bend the middle finger without significant amount of pain and difficul ties Review of Systems Review of Systems Constitutional: Negative for activity change, appetite change, chills, fatigue a nd fever. HENT: Negative for congestion, facial swelling, hearing loss, rhinorrhea and sne ezing. Eyes: Negative for discharge and itching. Respiratory: Negative for apnea, choking and chest tightness. Cardiovascular: Negative for chest pain and leg swelling. Gastrointestinal: Negative for abdominal distention, abdominal pain, diarrhea an d vomiting. Genitourinary: Negative for difficulty urinating, flank pain and hematuria. Musculoskeletal: Positive for joint swelling. Negative for back pain. Skin: Negative for color change. Neurological: Negative for dizziness, syncope, facial asymmetry and numbness. Psychiatric/Behavioral: Negative for agitation and behavioral problems. Physical Exam Blood pressure 102/62, temperature 97.8 F (36.6 C), temperature source Tymp anic, height 5' 6" (1.676 m), weight 65.3 kg (144 lb). Physical Exam Constitutional: He appears well-developed and well-nourished. HENT: Head: Normocephalic and atraumatic. Eyes: Pupils are equal, round, and reactive to light. Conjunctivae and EOM are n ormal. Neck: Normal range of motion. Neck supple. Cardiovascular: Normal rate, regular rhythm and normal heart sounds. Pulmonary/Chest: Effort normal and breath sounds normal. Abdominal: Soft. Bowel sounds are normal. Musculoskeletal: Right hand: He exhibits decreased range of motion, tenderness and swelling. Hands: Skin: Skin is warm and dry. ASSESSMENT: Encounter Diagnoses Name Primary? Hand pain, right Yes Seizure Bipolar affective disorder, remission status unspecified Stable angina PLAN: Orders Placed This Encounter XR HAND 3+ VW RIGHT URIC ACID methylPREDNISolone acetate (DEPO-Medrol) injection 80 mg dexamethasone (DECADRON) injection 4 mg Trial of steroids will get an x-ray today GE BOOTH ATTENDANT documented in this encounter Plan of Treatment Not on filedocumented as of this encounter Results * XR HAND 3+ VW RIGHT (11/24/2018 10:42 AM CHANGE BOOTH ATTENDANT) Specimen Impressions Performed At Impression: INTERFACE SYSTEM [...] other signific ant skeletal abnormality. Procedure Note Sienna, Bong Aguilera Incoming Radiology Results - 11/24/2018 11:34 AM CHANGE BOOTH ATTENDANT Right hand, three views. History: Pain. Comparison: [...] INTERFACE SYSTEM Refer to clinic/hospital department * URIC ACID (11/24/2018 10:37 AM CHANGE BOOTH ATTENDANT) URIC ACID 3.6 3.4 - 7.0 mg/dL [facility] [place] Specimen Blood Performing Organization Address City/State/Zipcode Ph one Number [facility] CLIA# [id number] [place] [address] - [place] [address] [facility] documented in this encounter Visit Diagnoses Diagnosis Hand pain, right - Primary Pain in limb Seizure Other convulsions Bipolar affective disorder, remission s tatus unspecified Stable angina Other and unspecified angina pectoris documented in this encounter Administered Medications Action Date Dose Rate Site Medication Order MAR Action 11/24/2018 10:34 AM CHANGE BOOTH ATTENDANT 4 mg Right Up per Outer Quadrant dexamethasone (DECADRON) injection 4 mg Given 4 mg, IM, ONE TIME ONLY, 1 dose, Nancy 11/24/18 at 1030, Routine 11/24/2018 10:35 AM CHANGE BOOTH ATTENDANT 80 mg Right Up per Outer Quadrant methylPREDNISolone acetate (DEPO-Medrol) Given injection 80 mg 80 mg, IM, ONE TIME ONLY, 1 dose, Nancy 11/24/18 at 1030, Routine documented in this encounter Additional Health Concerns Assessment Noted Time A Hypertension Plan of Care has been documented for jeremias krueger patient 02/12/2017 12:54 PM CDT A Depression follow-up plan has been documented for jeremias krueger patient 03/14/2018 11:52 AM CDT documented as of this encounter
--- OUTSIDE RECORDS SUMMARY | 2020-03-24 13:45 | XMS REPORT | Encounter Summary ---
Author Author [facility] Organization [facility] Address Unknown Phone Unavailable Care Team Providers Care Regional Retail Sales Manager Name Role Phone Claus Couch MD PCP Reason for Visit * Reason Comments Medication Refill Encounter Details Care Team Description Date Type Department Claus Couch MD [address] [place] [address] 10/11/2018 Refill [facility] Primar y Care [place] [address] [place] [address] Social History Date Tobacco Use [...]
--- OUTSIDE RECORDS SUMMARY | 2020-03-24 13:45 | XMS REPORT | Encounter Summary ---
Author Author [facility] Organization [facility] Address Unknown Phone Unavailable Care Team Providers Care Javascript Ui Developer Name Role Phone Claus Couch MD PCP Reason for Visit * Reason Comments Medication Refill Encounter Details Care Team Description Date Type Department Claus Couch MD [address] [place] [address] 10/28/2018 Refill [facility] Primar y Care [place] [address] [place] [address] Social History Date Tobacco Use [...]
--- OUTSIDE RECORDS SUMMARY | 2020-03-24 13:45 | XMS REPORT | Encounter Summary ---
Author Author [facility] Organization [facility] Address Unknown Phone Unavailable Care Team Providers Care Arcade Attendant Name Role Phone Claus Couch MD PCP Reason for Visit * Reason Comments Medication Refill Encounter Details Care Team Description Date Type Department Claus Couch MD [address] [place] [address] 10/28/2018 Refill [facility] Primar y Care [place] [address] [place] [address] Social History Date Tobacco Use [...]
--- OUTSIDE RECORDS SUMMARY | 2020-03-24 13:45 | XMS REPORT | Encounter Summary ---
Author Author [facility] Organization [facility] Address Unknown Phone Unavailable Care Team Providers Care Lyric Writer Name Role Phone Claus Couch MD PCP Reason for Visit * Auth/Cert Referred By Contact Referred To Contact Status Reason Specialty Diagnoses / Procedures [facility] [place] [id number] [place] [address] Home Health Encounter Details Care Team Description Date Type Department Odell Casillas, Physical Therapist PT - DISCIPLINE DISCHARGE 09/06/2018 [facility] [address] [place] [address] Social History Date Tobacco Use Types Packs/Day [...] AM CDT documented as of this encounter Home Health Visit - Care Plan Visit Type - PT - DISCIPLINE DISCHARGE Discipline - Physical Therapy Status Goals Interventions Problem Descriptio Start Date n Active - 1 problem intervention scheduled/documented in this visit Home Safety Home 07/12/2018 Disciplines: safety Physical Therapy Active - 1 problem intervention scheduled/documented in this visit PT Establish or Upgrade Home 07/12/2018 Home Program exercise Disciplines: program Physical Therapy Active - 1 problem intervention scheduled/documented in this visit PT Gait Training Gait 07/12/2018 Disciplines: evaluation Physical Therapy and training in appropriat e use of assistive devices. Variance Visit Notes Intervention Associated Status Problem/Go al Patient's has full awareness when there is potential environmental hazards and was instructed to continue to monitor for fall reduction,avoid leaning/reaching forward. Instruct home safety Problem: Completed Description: Home Instruct Patient and Safety Caregiver as needed in home and fall safety precautions through the Fall Prevention Program. Patient is now able to recall his HEP in supine and standing with walker support.Patient performed exercises:hip abduction,heel slides,SLR,quad,ham and gluteal sets.Standing exercises with walker support:Heel raises,partial squats,hip abduction,hip flexion,hip extension and forward leg kick x20 reps. PT establish or upgrade Problem: Completed home program PT Description: Establish Home exercise program for or Upgrade Ability to perform HEP, Home Increase in strength and Program endurance. Patient is now Mod indep with his walker ambulation at household distance,SBA/supervision to ambulate outdoor,to exit home. Pt gait training Problem: Completed Description: PT Gait Evaluate and instruct Training Patient and Caregiver in safe gait training on all surfaces including step training as needed in home or to exit home, full weight bearing and using walker. documented in this encounter
--- OUTSIDE RECORDS SUMMARY | 2020-03-24 13:45 | XMS REPORT | Encounter Summary ---
Author Author [facility] Organization [facility] Address Unknown Phone Unavailable Care Team Providers Care Supervisor Agency Appointments Name Role Phone Claus Couch MD PCP Reason for Visit * Reason Comments Medication Refill Encounter Details Care Team Description Date Type Department Claus Couch MD [address] [place] [address] 08/26/2018 Refill [facility] Primar y Care [place] [address] [place] [address] Social History Date Tobacco Use [...]
--- OUTSIDE RECORDS SUMMARY | 2020-03-24 13:45 | XMS REPORT | Encounter Summary ---
Author Author [facility] Organization [facility] Address Unknown Phone Unavailable Care Team Providers Care Supervisor Soldering Name Role Phone Claus Couch MD PCP Encounter Details Care Team Description Date Type Department Claus Couch MD [address] [place] [address] F[facility], Outpt Lab 09/23/2018 [facility] Outpatient Encounter Laboratory [address] [address] Social History Date Tobacco Use [...] Date End Date Medication Sig Dispensed Refills 04/27/2018 multivitamin (DAILY-DAVID) Take 1 Tablet 30 [...] Drop in both eyes 2 times daily. 09/23/2018 10/28/2018 nicotine (NICODERM CQ) 21 Apply 1 Patch 30 Patch 0 mg/24 hr patch to skin as directed every 24 hours. 09/07/2018 10/11/2018 ondansetron (ZOFRAN ODT) DISSOLVE 1 30 Tablet 0 4 mg Tablet, Rapid TABLET (4 MG) Dissolve ON TOP OF TONGUE EVERY 8 HOURS NEEDED FOR NAUSEA/VOMITI NG. 09/07/2018 10/06/2018 oxyCODONE (OxyCONTIN) 20 Take 1 Tablet 60 Tablet 0 mg Controlled Release 12 (20 mg) by hour crush resistant mouth every tablet 12 hours. Max Daily Amount: 40 mg 08/11/2018 11/02/2018 temazepam (RESTORIL) 7.5 Take 1 30 Capsule 2 mg capsule Capsule (7.5 mg) by mouth nightly as needed for Insomnia. 08/11/2018 11/02/2018 LORazepam (ATIVAN) 1 mg Take 1 Tablet 60 Tablet 2 tablet (1 mg) by mouth 2 times daily. 04/29/2018 11/03/2018 simvastatin (ZOCOR) 40 mg TAKE ONE 90 Tablet 1 tablet TABLET (40MG) BY MOUTH EVERY DAY IN THE EVENING 04/29/2018 11/03/2018 bethanechol (URECHOLINE) Take 1 Tablet 120 Tablet 3 25 mg tablet (25 mg) by mouth 4 times daily. 04/27/2018 11/03/2018 ezetimibe (ZETIA) 10 mg Take 1 Tab by 30 Tablet 5 tablet mouth daily at bedtime. 04/27/2018 11/04/2018 Magnesium 250 mg Tablet Take 1 Tablet 60 Tablet 5 by mouth every 12 hours. 04/27/2018 11/03/2018 phenytoin sodium Take 2 120 Capsule 2 (DILANTIN) 100 mg Capsules (200 extended release capsule mg) by mouth 2 times daily. 03/30/2018 11/03/2018 OLANZapine (ZyPREXA) 2.5 Take 1 Tablet 30 Tablet 5 mg tablet (2.5 mg) by mouth daily at bedtime. 03/30/2018 11/03/2018 ramipril (ALTACE) 5 mg Take 1 30 Capsule 5 capsule Capsule (5 mg) by mouth daily. 03/30/2018 11/03/2018 FLUoxetine (PROzac) 20 mg Take 2 180 Capsule 1 capsule Capsules (40 mg) by mouth daily. 03/14/2018 11/03/2018 raNITIdine (ZANTAC) 150 Take 1 Tablet 60 Tablet 5 mg tablet (150 mg) by mouth 2 times daily. 01/19/2018 11/03/2018 traZODone (DESYREL) 50 mg Take 1 Tab by 30 Tablet 5 tablet mouth daily at bedtime. 01/18/2018 11/03/2018 pioglitazone (ACTOS) 30 Take 1 Tab by 90 Tablet 1 mg tablet mouth daily. 11/24/2017 11/03/2018 clopidogrel (PLAVIX) 75 Take 1 Tab by 30 Tablet 5 mg Tablet mouth daily. 12/22/2017 11/03/2018 fenofibrate Take 1 Tablet 30 Tablet 11 nanocrystallized (TRICOR) (145 mg) by 145 mg tablet mouth daily WITH SUPPER 12/22/2017 11/03/2018 tamsulosin (FLOMAX) 0.4 Take 1 30 Capsule 11 mg capsule Capsule (0.4 mg) by mouth daily 30 MINUTES AFTER SUPPER. documented as of this encounter Plan of Treatment Order Schedule Name Type Priority Associated Diag noses Added to HDF configuration to grandgiacomo bethea will have ORD item [id number] populate with time. for 1 Occurrences starting 09/23/2018 until 09/23/2018 MICROALBUMIN/CREATININE Lab Stat Type 2 diabetes mellitus RATIO, RANDOM UR with diabetic neuropathy, without long-term current use of insulin documented as of this encounter Procedures Comments Procedure Name Priority Date/Time Associated Diag nosis CBC WITH DIFFERENTIAL Stat 09/23/2018 Type 2 d iabetes mellitus 7:41 AM BROADCAST CHECKER with diabetic neuropathy, without long-term current use of insulin HEMOGLOBIN A1C Stat 09/23/2018 Type 2 diabetes mellitus 7:41 AM BROADCAST CHECKER with diabetic neuropathy, without long-term current use of insulin LIPID PANEL Stat 09/23/2018 Type 2 diabetes mellitus 7:41 AM BROADCAST CHECKER with diabetic neuropathy, without long-term current use of insulin COMPREHENSIVE METABOLIC Stat 09/23/2018 Type 2 diabetes mellitus PANEL 7:41 AM BROADCAST CHECKER with diabetic neuro wesley, without long-term current use of insulin documented in this encounter Results * HEMOGLOBIN A1C (09/23/2018 7:41 AM BROADCAST CHECKER) HEMOGLOBIN A1C 5.7 4.8 - 5.9 % [facility] [place] EST. AVG 117 mg/dL [facility] A[facility] - [place] Specimen Blood Narrative Performed At HGB A1C INTERPRETATION [facility] NORMAL: <5.7% SERVICES [place] PRE-DIABETES: 5.7 - 6.4% [place] DIABETES: 6.5% OR GREATER Performing Organization Address City/State/Zipcode Ph one Number [facility] CLIA# [id number] [place] [address] [place] [address] [facility] * COMPREHENSIVE METABOLIC PANEL (09/23/2018 7:41 AM BROADCAST CHECKER) SODIUM 138 136 - 145 mmol/L [facility] [place] POTASSIUM 4.2 3.5 - 5.1 mmol/L [facility] [place] CHLORIDE 101 98 - 107 mmol/L [facility] [place] CO2 23 22 - 29 mmol/L [facility] [place] CALCIUM 9.2 8.8 - 10.2 mg/dL [facility] [place] BUN 14 8 - 23 mg/dL [facility] [place] CREATININE 0.53 (L) 0.67 - 1.17 mg/dL [facility] [place] GLUCOSE 165 (H) 74 - 99 mg/dL [facility] [place] TOTAL PROTEIN 6.9 6.6 - 8.7 g/dL [facility] [place] ALBUMIN 3.7 3.5 - 5.2 g/dL [facility] [place] BILIRUBIN TOTAL <0.1 <=1.2 mg/dL [facility] [place] ALKALINE 87 40 - 129 U/L [facility] PHOSPHATASE [facility] [place] AST 16 <=41 U/L [facility] [place] ALT 12 10 - 50 U/L [facility] [place] GFR >60 >=60 mL/min/1.73 sq [facility] Comment: meter LABORATORY eGFR has not been validated [facility] for use in the elderly (> 70 [place] years of age), women, patients with serious [...] result. GFR, >60 >=60 mL/min/1.73 sq [facility] [place] meter [facility] - [place] ANION GAP 14 4 - 20 mmol/L [facility] [place] Specimen Blood Performing Organization Address City/State/[facility] Ph one Number [facility] CLIA# [id number] [place] [address] - [place] [facility] * LIPID PANEL (09/23/2018 7:41 AM BROADCAST CHECKER) CHOLESTEROL 122 <200 mg/dL [facility] [place] TRIGLYCERIDE 51 <150 mg/dL [facility] [place] HDL 58 40 - 59 mg/dL [facility] [place] LDL CALCULATED 54 <100 mg/dL [facility] [place] NON-HDL 64 <130 mg/dL [facility] CHOLESTEROL [facility] - [place] Specimen Blood Narrative Performed At TOTAL CHOLESTEROL mg/dL [facility] Desirable <200 SERVICES - [facility] Borderline high 200-239 [place] High >=240 TRIGLYCERIDES mg/dL Normal <150 Borderline [...] for Lipid Panels (NCEP/AMA) Performing Organization Address City/State/Zipcode Ph one Number [facility] CLIA# [id number] [place] [address] - [place] [address] [place] [address] BLVD * CBC WITH DIFFERENTIAL (09/23/2018 7:41 AM BROADCAST CHECKER) WBC 11.2 (H) 3.6 - 11.1 K/uL [facility] [place] RBC 4.09 (L) 4.49 - 5.52 M/uL [facility] [place] HEMOGLOBIN 10.8 (L) 13.3 - 16.5 g/dL [facility] [place] HEMATOCRIT 33.2 (L) 40.7 - 48.9 % [facility] [place] MCV 81.2 (L) 82.7 - 97.1 fL [facility] [place] MCH 26.4 (L) 27.1 - 32.3 pg [facility] [place] MCHC 32.5 31.3 - 34.9 g/dL [facility] [place] RDW 14.6 11.5 - 14.7 % [facility] [place] RDW-STDEV 42.8 37.2 - 47.6 fL [facility] [place] PLATELETS 402 (H) 136 - 352 K/uL [facility] [place] MPV 7.9 (L) 8.6 - 11.8 fL [facility] [place] NEUTROPHILS 75 (H) 44 - 74 % [facility] [place] LYMPHOCYTES 16 16 - 44 % [facility] [place] MONOCYTES 8 4 - 11 % [facility] [place] EOSINOPHILS 1 0 - 6 % [facility] [place] BASOPHILS 0 0 - 1 % [facility] [place] IMMATURE 0 0 - 1 % [facility] GRANULOCY[facility] [place] NEUTROPHIL 8.41 (H) 1.54 - 7.18 K/uL [facility]UTE [facility] [place] LYMPHOCYTE 1.75 0.69 - 3.61 K/uL [facility] [place] MONOCYTE 0.92 0.19 - 0.95 K/uL [facility] [place] EOSINOPHIL 0.07 0.00 - 0.44 K/uL [facility] [place] BASOPHILS 0.02 0.00 - 0.10 K/uL [facility] [place] IMMATURE 0.05 0.00 - 0.09 K/uL [facility] GRANULOCYTES [facility] ABSOLUTE [facility] - [place] Specimen Blood Performing Organization Address City/State/Zipcode Ph one Number [facility] CLIA# [id number] [place] [address] - [place] [address] [place] [address] documented in this encounter Visit Diagnoses Diagnosis Type 2 diabetes mellitus with diabetic neuropathy, without long-term current use of insulin documented in this encounter Additional Health Concerns Assessment Noted Time A Hypertension Plan of Care has been documented for jeremias krueger patient 02/12/2017 12:54 PM CDT A Depression follow-up plan has been documented for jeremias krueger patient 03/14/2018 11:52 AM CDT documented as of this encounter
--- OUTSIDE RECORDS SUMMARY | 2020-03-24 13:45 | XMS REPORT | Encounter Summary ---
Author Author [facility] Organization [facility] Address Unknown Phone Unavailable Care Team Providers Care Rotary Adjuster Name Role Phone Claus Couch MD PCP Encounter Details Care Team Description Date Type Department Claus Couch MD [address] [place] [address] 10/25/2018 Abstract [facility] [address] [place] [address] Social History Date Tobacco Use [...]
--- OUTSIDE RECORDS SUMMARY | 2020-03-24 13:45 | XMS REPORT | Encounter Summary ---
Author Author [facility] Organization [facility] Address Unknown Phone Unavailable Care Team Providers Care Bass Singer Name Role Phone Claus Couch MD PCP Reason for Visit * Reason Comments Weakness * Auth/Cert Referred By Contact Referred To Contact Status Reason Specialty Diagnoses / Procedures [facility] [place] [id number] [place] [address] [facility] Encounter Details Care Team Description Date Type Department Walter Arroyo, Physical Therapist PT - HOME VISIT 08/30/2018 [facility] [address] [place] [address] Social History Date Tobacco Use [...] Signs Reading Time Taken Comments Vital Sign 112/65 08/30/2018 11:15 AM CDT Blood Pressure 92 08/30/2018 11:15 AM CDT Pulse - - Temperature 18 08/30/2018 11:15 AM CDT Respiratory Rate - - Oxygen Saturation - - Inhaled Oxygen Concentration - - Weight - - Height - - Body Mass Index documented in this encounter Plan of Treatment [...] Care Plan Visit Type - PT - HOME VISIT Discipline - Physical Therapy Status Goals Interventions [...] Visit Notes Intervention Associated Status Problem/Go al Floors clear of clutter and all paths have wide berth. Instruct home safety Problem: Scheduled Description: Home Instruct Patient and Safety Caregiver as needed in home and fall safety precautions through the Fall Prevention Program. Seated on recliner , hip ABD/ADD , SLR, HS, Glut sets, and Quad sets all 20 reps with cues for slow controlled movement. Sit to stands x 5 from recliner SBA Seated bilat rows 20reps with red therapy tubing. Seated bilat punches with red t tube x 15 Standing heel raises x 20 PT establish or upgrade Problem: Scheduled home program PT Description: Establish Home exercise program for or Upgrade Ability to perform HEP, Home Increase in strength and Program endurance. Patient gait training done with 2 WW. SBA for cues to stay closer to walker and not use UE as much for weight bearing. Distance 490ft. Pt gait training Problem: Scheduled Description: PT Gait Evaluate and instruct Training Patient and Caregiver in safe gait training on all surfaces including step training as needed in home or to exit home, full weight bearing and using walker. documented in this encounter Home Health Visit - Actions and Narratives AROM to RROM UE and LE therapeutic exer cise Gait training with 2ww . Patient appears to be gaining strength and endurance with 4- to 4/5 LE strength. His gait distance was 490ft. today SBA to Mod I documented in this encounter
--- OUTSIDE RECORDS SUMMARY | 2020-03-24 13:45 | XMS REPORT | Encounter Summary ---
Author Author [facility] Organization [facility] Address Unknown Phone Unavailable Care Team Providers Care Cooker Casing Name Role Phone Claus Couch MD PCP Reason for Visit * Reason Comments Medication Refill Encounter Details Care Team Description Date Type Department Cluas Couch MD [address] [place] [address] 09/07/2018 Refill [facility] [place] [address] [place] [address] Social History Date Tobacco Use [...]
--- OUTSIDE RECORDS SUMMARY | 2020-03-24 13:45 | XMS REPORT | Encounter Summary ---
Author Author [facility] Organization [facility] Address Unknown Phone Unavailable Care Team Providers Care Order Administrator Name Role Phone Claus Couch MD PCP Encounter Details Care Team Description Date Type Department Shahram Dyson, Physical Therapist CASE COMMUNICATION 09/26/2018 Home [facility] [address] [place] [address] Social History Date Tobacco Use [...]
--- OUTSIDE RECORDS SUMMARY | 2020-03-24 13:45 | XMS REPORT | Encounter Summary ---
Author Author [facility] Organization [facility] Address Unknown Phone Unavailable Care Team Providers Care Well Drill Operator Rotary Drill Name Role Phone Claus Couch MD PCP Reason for Visit * Auth/Cert Referred By Contact Referred To Contact Status Reason Specialty Diagnoses / Procedures [facility] [address] [place] [address] Home Health Encounter Details Care Team Description Date Type Department Odell Casillas, Physical Therapist PT - HOME VISIT 09/01/2018 [facility] [address] [place] [address] Social History Date Tobacco Use [...] Visit Notes Intervention Associated Status Problem/Go al Instruct home safety Problem: Completed Description: Home Instruct Patient and Safety Caregiver as needed in home and fall safety precautions through the Fall Prevention Program. Patient performed supine exercises:hip abduction,heel slides,SLR,quad,ham and gluteal sets.Standing exercises with kitchen counter support:Heel raises,partial squats,hip abduction,hip flexion,hip extension and forward leg kick x20 reps. PT establish or upgrade Problem: Completed home program PT Description: Establish Home exercise program for or Upgrade Ability to perform HEP, Home Increase in strength and Program endurance. Patient is Mod indep with his walker at household/functional distance and SBA/CGA on unlevel surfaces or to exit home. Pt gait training Problem: Completed Description: PT Gait Evaluate and instruct Training Patient and Caregiver in safe gait training on all surfaces including step training as needed in home or to exit home, full weight bearing and using walker. documented in this encounter Home Health Visit - Actions and Narratives Patient demonstrates potential for cont inued gains towards a greater level of functional independence and will benefit from cont inued Physical Therapy Services to address deficit areas impacting his function. documented in this encounter
--- OUTSIDE RECORDS SUMMARY | 2020-03-24 13:45 | XMS REPORT | Encounter Summary ---
Author Author [facility] Organization [facility] Address Unknown Phone Unavailable Care Team Providers Care Optimization Manager Name Role Phone Claus Couch MD PCP Reason for Visit * Reason Comments Medication Refill Encounter Details Care Team Description Date Type Department Claus Couch MD [address] [place] [address] 11/02/2018 Refill [facility] [place] [address] [place] [address] Social History Date Tobacco Use [...]
--- OUTSIDE RECORDS SUMMARY | 2020-03-24 13:45 | XMS REPORT | Encounter Summary ---
Author Author [facility] Organization [facility] Address Unknown Phone Unavailable Care Team Providers Care Social Service Worker Name Role Phone Claus Couch MD PCP Reason for Visit * Reason Comments Medication Refill Encounter Details Care Team Description Date Type Department Claus Couch MD [address] [place] [address] 11/03/2018 Refill [facility] [place] [address] [place] [address] Social History Date Tobacco Use [...]
--- OUTSIDE RECORDS SUMMARY | 2020-03-24 13:45 | XMS REPORT | Encounter Summary ---
Author Author [facility] Organization [facility] Address Unknown Phone Unavailable Care Team Providers Care Dividing Machine Operator Name Role Phone Claus Couch MD PCP Reason for Visit * Auth/Cert Referred By Contact Referred To Contact Status Reason Specialty Diagnoses / Procedures [facility] [place] [id number] [place] [address] Home Health Encounter Details Care Team Description Date Type Department Marissa Pitts RN SN - OASIS DISCHARGE 09/07/2018 [facility] [address] [place] [address] Social History Date Tobacco Use [...] Visit - Care Plan Visit Type - SN - OASIS DISCHARGE Discipline - Usp Status Goals Interventions Problem Descriptio Start Date n Resolved on 09/07/2018 problem intervention scheduled/documented in this visit Depression Depression 07/11/2018 Disciplines: Usp Resolved on 09/07/2018 - problem interventions scheduled/documented in this visit Home Safety Home 07/11/2018 Disciplines: safety Usp Resolved on 09/07/2018 problem intervention scheduled/documented in this visit Knowledge deficit on Infection 07/11/2018 preventing infection with prevention therapies . Disciplines: Usp Resolved on 09/07/2018 problem intervention scheduled/documented in this visit Nutritional concerns Nutritiona 07/11/2018 Disciplines: l intake Usp concerns Resolved on 09/07/2018 problem intervention scheduled/documented in this visit Physical Discomfort Alteration 07/11/2018 Disciplines: in comfort Usp Resolved on 09/07/2018 problem intervention scheduled/documented in this visit Pulse Oximetry Skilled 07/11/2018 Disciplines: assessment Usp and monitoring of O2 saturation s. Resolved on 09/07/2018 problem intervention scheduled/documented in this visit Skilled Observation and Skilled 07/11/2018 Assessment nursing Disciplines: observatio Usp n and assessment . Resolved on 09/07/2018 problem intervention scheduled/documented in this visit Teaching and Training Skilled 07/11/2018 Disciplines: nursing Usp teaching and training. Variance Visit Notes Intervention Associated Status Problem/Go al Assess Depression Problem: Scheduled Description: Depression Assess for signs and symptoms of depression. Report worsening symptoms to MD, evaluate need for social service referral. HH Abuse/Neglect Problem: Scheduled Description: Home Initiate abuse/neglect Safety reporting mechanism per agency policy and regulatory requirements. Instruct home safety Problem: Scheduled Description: Home Instruct on safe use of Safety equipment, transfer techniques, and home modifications. Skilled assessment risk Problem: Scheduled for injury Home Description: Safety Assess patient's sensory perception, ability for ambulation and movement, disorientation or changes in mentation. Assess the home environment for potential hazards. Monitor ongoing for changes to patient Fall Risk Assessment. Skilled assessment risk Problem: Scheduled for infection Knowledge Description: deficit on Assess for s/s of preventing infection. Assess Patient infection for knowledge related to with infection prevention, how therapies to recognize s/s of infection, and when to notify HH and/or physician. Skilled assessment Problem: Scheduled nutrition Nutritiona Description: l concerns Assess patient's current nutritional status, factors that affect the patient's ability to purchase and prepare meals, current eating practices, and current knowledge of intake requirements. Skilled assessment pain Problem: Scheduled Description: Physical Assess and document: the Discomfort cause, location, intensity, quality, frequency and duration of pain; alleviating and aggravating factors; current medication regimen and treatments; effects of pain on patient's sleep, appetite, physical or emotional energy, concentration, personal relationships, emotions, or ability or desire to perform physical activity. Assess patient's pain utilizing an appropriate pain scale for age and cognition. Evaluate the effectiveness of the current pain treatment regimen and notify physician for the need for changes in the plan of care. Sn to obtain pulse ox Problem: Scheduled reading Pulse Description: Oximetry Monitor and record O2 saturation when at rest. Evaluate the effectiveness of current therapy, and notify physician of the need for modifications to the treatment plan. Skilled observation and Problem: Scheduled assessment Skilled Description: Observatio Skilled observation and n and assessment due to recent Assessment hospitalization, alteration in patient's medical condition, alteration in patient's plan of treatment, recent surgery and recent injury. Teaching and training as Problem: Scheduled specified Teaching Description: and SN to visit for teaching Training and training related to CHF, COPD, diabetes, signs and symptoms of infection, infection prevention, dietary restrictions, mobility restrictions, home safety, medications and possible complications and prevention of complications. documented in this encounter
--- OUTSIDE RECORDS SUMMARY | 2020-03-24 13:45 | XMS REPORT | Encounter Summary ---
Author Author [facility] Organization [facility] Address Unknown Phone Unavailable Care Team Providers Care Recycling Assistant Name Role Phone Claus Couch MD PCP Encounter Details Care Team Description Date Type Department Claus Couch MD [address] [place] [address] 09/23/2018 [facility] Encounter [address] [address] Social History Date Tobacco Use [...] Name Priority Date/Time Associated Diag nosis XR RIBS UNILATERAL RIGHT Routine 09/23/2018 Rib p ain on right side W PA CHEST 9:05 AM BLUEPRINT CLERK documented in this encounter Results * XR RIBS UNILATERAL RIGHT W PA CHEST (09/23/2018 9:05 AM BLUEPRINT CLERK) Specimen Impressions Performed At Impression: No evidence for right rib fracture . INT ERFACE SYSTEM Narrative Performed At 3 VIEWS RIGHT RIBS and PA chest INTERFACE SYSTEM History: See Diagnosis Rib pain on righ t side Comparison: 07/04/2018 Findings: Old deformity right upper rib s. No acute fracture or dislocation noted. Median sternotomy.. No effusions or infiltrates . No pneumothorax . Procedure Note Interface, [facility] Incoming Radiology Results - 09/23/2018 10:07 AM BLUEPRINT CLERK 3 VIEWS RIGHT RIBS and PA chest History: See Diagnosis Rib pain on right side Comparison: 07/04/2018 Findings: Old deformity right upper ribs. No acute fracture or dislocation noted. Median sternotomy.. No effusions or infiltrates . No pneumothorax . Impression: No evidence for right rib fracture . Performing Organization Address City/State/Zipcode Ph one Number INTERFACE SYSTEM INTERFACE SYSTEM Refer to clinic/hospital department documented in this encounter Visit Diagnoses Diagnosis Rib pain on right side Chest pain, unspecified documented in this encounter Additional Health Concerns Assessment Noted Time A Hypertension Plan of Care has been documented for t he patient 02/12/2017 12:54 PM CDT A Depression follow-up plan has been documented for t he patient 03/14/2018 11:52 AM CDT documented as of this encounter
--- OUTSIDE RECORDS SUMMARY | 2020-03-24 13:45 | XMS REPORT | Encounter Summary ---
Author Author [facility] Organization [facility] Address Unknown Phone Unavailable Care Team Providers Care Quarter Section Ironer Name Role Phone Claus Couch MD PCP Reason for Visit * Reason Comments Medication Refill Encounter Details Care Team Description Date Type Department Claus Couch MD [address] [place] [address] 10/06/2018 Refill [facility] [place] [address] [place] [address] Social History Date Tobacco Use [...]
--- OUTSIDE RECORDS SUMMARY | 2020-03-24 13:45 | XMS REPORT | Encounter Summary ---
Author Author [facility] Organization [facility] Address Unknown Phone Unavailable Care Team Providers Care Seafood Harvester Name Role Phone Claus Couch MD PCP Reason for Visit * Reason Comments Medication Refill Encounter Details Care Team Description Date Type Department Claus Couch MD [address] [place] [address] 08/26/2018 Refill [facility] [place] [address] [place] [address] Social History Date Tobacco Use [...]
--- OUTSIDE RECORDS SUMMARY | 2020-03-24 13:45 | XMS REPORT | Encounter Summary ---
Author Author [facility] Organization [facility] Address Unknown Phone Unavailable Care Team Providers Care Chenille Machine Operator Name Role Phone Claus Couch MD PCP Reason for Referral * Home Health (Routine) Referred By Contact Referred To Contact Status Reason Specialty Diagnoses / Procedures Claus Couch MD [address] [place] [address] [facility] Health [facility] [address] [place] [address] Closed Home Health Diagnoses Gait abnormality Reason for Visit * Reason Comments E&M Of Chronic Disease(s) 3 months,labs needs a comp lete physical done Side Pain right side pain Encounter Details Care Team Description Date Type Department Claus Couch MD [address] [place] [address] Rib pain on right side (Primary Dx); Seizure; Bipolar affective disorder, remission status unspecified; Stable angina; Moderate episode of recurrent major depressive disorder; Essential hypertension; Mixed hyperlipidemia; Type 2 diabetes mellitus with diabetic neuropathy, without long-term current use of insulin; Continuous dependence on cigarette smoking; Gait abnormality 09/23/2018 Office Visit [facility] [address] [place] [address] Social History Date Tobacco Use [...] Signs Reading Time Taken Comments Vital Sign 120/78 09/23/2018 8:26 AM MANAGER DATA Blood Pressure - - Pulse 36.6 C (97.8 F) 09/23/2018 8:26 AM MANAGER DATA Temperature - - Respiratory Rate - - Oxygen Saturation - - Inhaled Oxygen Concentration 65.3 kg (144 lb) 09/23/2018 8:26 AM MANAGER DATA Weight 167.6 cm (5' 6") 09/23/2018 8:26 AM MANAGER DATA Height 23.24 09/23/2018 8:26 AM MANAGER DATA Body Mass Index documented in this encounter Patient Instructions * Patient Instructions* Claus Couch MD - 09/23/2018 8:36 AM MANAGER DATA Hospital Encounter on 09/23/18 (from the past 168 hour(s)) CBC WITH DIFFERENTIAL Collection Time: 09/23/18 7:41 AM Result Value Ref Range WBC 11.2 (H) 3.6 - 11.1 K/uL RBC 4.09 (L) 4.49 - 5.52 M/uL HEMOGLOBIN 10.8 (L) 13.3 - 16.5 g/dL HEMATOCRIT 33.2 (L) 40.7 - 48.9 % MCV 81.2 (L) 82.7 - 97.1 fL MCH 26.4 (L) 27.1 - 32.3 pg MCHC 32.5 31.3 - 34.9 g/dL RDW 14.6 11.5 - 14.7 % RDW-STDEV 42.8 37.2 - 47.6 fL PLATELETS 402 (H) 136 - 352 K/uL MPV 7.9 (L) 8.6 - 11.8 fL NEUTROPHILS 75 (H) 44 - 74 % LYMPHOCYTES 16 16 - 44 % MONOCYTES 8 4 - 11 % EOSINOPHILS 1 0 - 6 % BASOPHILS 0 0 - 1 % IMMATURE GRANULOCYTES 0 0 - 1 % NEUTROPHIL ABSOLUTE 8.41 (H) 1.54 - 7.18 K/uL LYMPHOCYTE ABSOLUTE 1.75 0.69 - 3.61 K/uL MONOCYTE ABSOLUTE 0.92 0.19 - 0.95 K/uL EOSINOPHIL ABSOLUTE 0.07 0.00 - 0.44 K/uL BASOPHILS ABSOLUTE 0.02 0.00 - 0.10 K/uL IMMATURE GRANULOCYTES ABSOLUTE 0.05 0.00 - 0.09 K/uL LIPID PANEL Collection Time: 09/23/18 7:41 AM Result Value Ref Range CHOLESTEROL 122 <200 mg/dL TRIGLYCERIDE 51 <150 mg/dL HDL 58 40 - 59 mg/dL LDL CALCULATED 54 <100 mg/dL NON-HDL CHOLESTEROL 64 <130 mg/dL Narrative TOTAL CHOLESTEROL mg/dL Desirable <200 Borderline high 200-239 High >=240 TRIGLYCERIDES mg/dL [...] Guidelines Reference Ranges for Lipid Panels (NCEP/AMA) COMPREHENSIVE METABOLIC PANEL Collection Time: 09/23/18 7:41 AM Result Value Ref Range SODIUM 138 136 - 145 mmol/L POTASSIUM 4.2 3.5 - 5.1 mmol/L CHLORIDE 101 98 - 107 mmol/L CO2 23 22 - 29 mmol/L CALCIUM 9.2 8.8 - 10.2 mg/dL BUN 14 8 - 23 mg/dL CREATININE 0.53 (L) 0.67 - 1.17 mg/dL GLUCOSE 165 (H) 74 - 99 mg/dL TOTAL PROTEIN 6.9 6.6 - 8.7 g/dL ALBUMIN 3.7 3.5 - 5.2 g/dL BILIRUBIN TOTAL <0.1 <=1.2 mg/dL ALKALINE PHOSPHATASE 87 40 - 129 U/L AST 16 <=41 U/L ALT 12 10 - 50 U/L GFR >60 >=60 mL/min/1.73 sq meter GFR, >60 >=60 mL/min/1.73 sq meter ANION GAP 14 4 - 20 mmol/L HEMOGLOBIN A1C Collection Time: 09/23/18 7:41 AM Result Value Ref Range HEMOGLOBIN A1C 5.7 4.8 - 5.9 % EST. AVG GLUCOSE, A1C 117 mg/dL Narrative HGB A1C INTERPRETATION NORMAL: <5.7% PRE-DIABETES: 5.7 - 6.4% DIABETES: 6.5% OR GREATER *Note: Due to a large number of results and/or encounters for the requested time period, some results have not been displayed. A complete set of results can be found in Results Review. GER DATA documented in this encounter Progress Notes * Claus Couch MD - 09/23/2018 8:41 AM MANAGER DATA Oliverio Dalton is a 68 y.o. male comes in today for a follow up on hyperlipide michi, hypertension and diabetes taking medications as instructed, no medication s miller effects noted, no TIAs, no chest pain on exertion, no dyspnea on exertion, n o swelling of anklesno polyuria or polydipsia, no numbness, tingling or pain in extremities has LDL goal is under 70 denies any other difficulties overall feels good has been having pain in the right ribs no fall Has been havign balance issues as well . I have reviewed the patient's medical family and surgical history in detail and updated the computerized patient record. ROS neg except for the above mentioned Physical Exam: BP 120/78 | Temp 97.8 F (36.6 C) (Tympanic) | Ht 5' 6" (1.676 m) | Wt 65. 3 kg (144 lb) | BMI 23.24 kg/m General appearance: alert, in no distress Lungs: clear to auscultation bilaterally, normal respiratory effort Heart: normal rate, regular rhythm, normal S1, S2, no murmurs, rubs, clicks or g allops Abdomen: Soft, non-tender. Bowel sounds normal. No masses, no organomegaly. Extremities: extremities normal, atraumatic, no cyanosis or edema, intact distal pulses, moves all extremities equally, no edema, redness or tenderness in the c rios or thighs, normal strength, normal tone Tenderness over the sixth rib on the right side Lab Results Component Value Date/Time SODIUM 138 09/23/2018 07:41 AM POTASSIUM 4.2 09/23/2018 07:41 AM CHLORIDE 101 09/23/2018 07:41 AM CO2 23 09/23/2018 07:41 AM CALCIUM 9.2 09/23/2018 07:41 AM BUN 14 09/23/2018 07:41 AM CREATININE 0.53 (L) 09/23/2018 07:41 AM GLUCOSE 165 (H) 09/23/2018 07:41 AM TOTAL PROTEIN 6.9 09/23/2018 07:41 AM ALBUMIN 3.7 09/23/2018 07:41 AM BILIRUBIN TOTAL <0.1 09/23/2018 07:41 AM ALKALINE PHOSPHATASE 87 09/23/2018 07:41 AM AST 16 09/23/2018 07:41 AM ALT 12 09/23/2018 07:41 AM ANION GAP 14 09/23/2018 07:41 AM BUN/CREAT RATIO 19.8 12/02/2012 09:43 PM CHOLESTEROL 122 09/23/2018 07:41 AM HDL 58 09/23/2018 07:41 AM LDL CALCULATED 54 09/23/2018 07:41 AM LDL CHOLESTEROL, DIRECT 125 12/10/2011 09:05 AM TRIGLYCERIDE 51 09/23/2018 07:41 AM HEMOGLOBIN A1C 5.7 09/23/2018 07:41 AM TSH 1.69 10/01/2006 05:40 AM ASSESSMENT: Encounter Diagnoses Name Primary? Rib pain on right side Yes Seizure Bipolar affective disorder, remission status unspecified Stable angina Moderate episode of recurrent major depressive disorder Essential hypertension Mixed hyperlipidemia Type 2 diabetes mellitus with diabetic neuropathy, without long-term current use of insulin Continuous dependence on cigarette smoking Gait abnormality PLAN: Orders Placed This Encounter XR RIBS UNILATERAL RIGHT W PA CHEST INFLUENZA VACCINE HIGH DOSE 65+ YRS IM CBC WITH DIFFERENTIAL (4 MONTHS X 1) LIPID PANEL (4 MONTHS X 1) CMP (4 MONTHS X 1) HEMOGOLBIN A1C (4 MONTHS X1) MICROALBUMIN/CREATININE RATIO, RANDOM UR (4 MONTHS X 1) *AMB REFERRAL TO HOME HEALTH PA MCKINNEY nicotine (NICODERM CQ) 21 mg/24 hr patch follow up in 3 months the following changes to treatment plan are made: Lab today with his difficultie s with balance and gait instability we will have him see home health physical th jose enrique reviewed medications and side effects in detail cardiovascular risk and specific lipid/LDL goals reviewed. GER DATA documented in this encounter Plan of Treatment Order Schedule Name Type Priority Associated Diag noses Ordered: 09/23/2018 AMB REFERRAL TO HOME CARE Outpatient Routine Gait abnormality Referral documented as of this encounter Results * XR RIBS UNILATERAL RIGHT W PA CHEST (09/23/2018 9:05 AM MANAGER DATA) Specimen Impressions Performed At Impression: No evidence [...] . No pneumothorax . Procedure Note Interface, [facility] Incoming Radiology Results - 09/23/2018 10:07 AM MANAGER DATA 3 VIEWS RIGHT RIBS and PA chest [...] Diagnoses Diagnosis Rib pain on right side - Primary Chest pain, unspecified Seizure Other convulsions Bipolar affective disorder, remission s tatus unspecified Stable angina Other and unspecified angina pectoris Moderate episode of recurrent major dep ressive disorder Essential hypertension Unspecified essential hypertension Mixed hyperlipidemia Type 2 diabetes mellitus with diabetic neuropathy, without long-term current use of insulin Continuous dependence on cigarette smok ing Gait abnormality Abnormality of gait documented in this encounter Additional Health Concerns Assessment Noted Time A Hypertension Plan of Care has been documented for jeremias krueger patient 02/12/2017 12:54 PM CDT A Depression follow-up plan has been documented for jeremias krueger patient 03/14/2018 11:52 AM CDT documented as of this encounter
--- OUTSIDE RECORDS SUMMARY | 2020-03-24 13:46 | XMS REPORT | Encounter Summary ---
Author Author [facility] Organization [facility] Address Unknown Phone Unavailable Care Team Providers Care Yoga Instructor Name Role Phone Claus Couch MD PCP Reason for Visit * Auth/Cert Referred By Contact Referred To Contact Status Reason Specialty Diagnoses / Procedures [facility] [place] [place] [address] Home Health Encounter Details Care Team Description Date Type Department Odell Casillas, Physical Therapist PT - HOME VISIT 08/09/2018 [facility] [address] [place] [address] Social History Date Tobacco Use [...] Prevention Program. Patient performed supine exercises:hip abduction,heel slides,bridging,SLR,quad,ham and gluteal sets.Standing exercises with kitchen counter support:Heel raises,partial squats,hip abduction,hip flexion,hip extension and forward leg kick x20 reps. PT establish or upgrade Problem: Completed home program PT Description: Establish Home exercise program for or Upgrade Ability to perform HEP, Home Increase in strength and Program endurance. Gait training to normalize gait pattern,training in correct sequencing of gait with AD to increase safety,weight shift during mobility and gait training w/emphasis on stride length.Patient amb x100' with SBA on level surfaces at household distance. Pt gait training Problem: Completed Description: PT [...]
--- OUTSIDE RECORDS SUMMARY | 2020-03-24 13:46 | XMS REPORT | Encounter Summary ---
Author Author [facility] Organization [facility] Address Unknown Phone Unavailable Care Team Providers Care Process Validation Engineer Name Role Phone Claus Couch MD PCP Reason for Visit * Auth/Cert Referred By Contact Referred To Contact Status Reason Specialty Diagnoses / Procedures [facility] [place] [id number] [place] [address] Home Health Encounter Details Care Team Description Date Type Department Odell Casillas, Physical Therapist PT - HOME VISIT 08/04/2018 [facility] [address] [place] [address] Social History Date Tobacco Use [...] abduction,hip flexion,hip extension and forward leg kick x15 reps. PT establish or upgrade Problem: Completed home program PT Description: Establish Home exercise program for or Upgrade Ability to perform HEP, Home Increase in strength and Program endurance. Patient is able to ambulate approximately 60-80' with FWW and CGA to SBA with step through gait pattern at household distance and VC for safety during turning. Pt gait training Problem: Completed Description: PT [...]
--- OUTSIDE RECORDS SUMMARY | 2020-03-24 13:46 | XMS REPORT | Encounter Summary ---
Author Author [facility] Organization [facility] Address Unknown Phone Unavailable Care Team Providers Care Value Stream Coach Name Role Phone Claus Couch MD PCP Reason for Visit * Reason Comments Medication Refill Encounter Details Care Team Description Date Type Department Claus Couch MD [address] [place] [address] 08/12/2018 Refill [facility] Primar y Care [place] [address] [place] [address] Social History Date Tobacco Use [...]
--- OUTSIDE RECORDS SUMMARY | 2020-03-24 13:46 | XMS REPORT | Encounter Summary ---
Author Author [facility] Organization [facility] Address Unknown Phone Unavailable Care Team Providers Care Hand Packer Name Role Phone Claus Couch MD PCP Reason for Visit * Auth/Cert Referred By Contact Referred To Contact Status Reason Specialty Diagnoses / Procedures [facility] [place] [address] [place] [address] Home Health Encounter Details Care Team Description Date Type Department Mel Miranda RN SN - HOME VISIT 07/29/2018 Home Care Visit [facility] [address] [place] [address] Social History Date Tobacco Use [...] Signs Reading Time Taken Comments Vital Sign 108/50 07/29/2018 10:53 AM CDT Blood Pressure 88 07/29/2018 10:53 AM CDT Pulse 36.9 C (98.4 F) 07/29/2018 10:53 AM CDT Temperature 18 07/29/2018 10:53 AM CDT Respiratory Rate 98% 07/29/2018 10:53 AM CDT Oxygen Saturation - - Inhaled [...] Care Plan Visit Type - SN - HOME VISIT Discipline - Long-Term Status Goals Interventions Problem Descriptio Start Date n Active - 1 problem intervention scheduled/documented in this visit Depression Depression 07/11/2018 Disciplines: Long-Term Active - 3 problem interventions scheduled/documented in this visit Home Safety Home 07/11/2018 Disciplines: safety Long-Term Active - 1 problem intervention scheduled/documented in this visit Knowledge deficit on Infection 07/11/2018 preventing infection with prevention therapies . Disciplines: Long-Term Active - 1 problem intervention scheduled/documented in this visit Medications Management 07/11/2018 Disciplines: of home Long-Term medication s Active - 1 problem intervention scheduled/documented in this visit Nutritional concerns Nutritiona 07/11/2018 Disciplines: l intake Long-Term concerns Active - 1 problem intervention scheduled/documented in this visit Physical Discomfort Alteration 07/11/2018 Disciplines: in comfort Long-Term Active - 1 problem intervention scheduled/documented in this visit Pulse Oximetry Skilled 07/11/2018 Disciplines: assessment Long-Term and monitoring of O2 saturation s. Active - 1 problem intervention scheduled/documented in this visit Skilled Observation and Skilled 07/11/2018 Assessment nursing Disciplines: observatio Long-Term n and assessment . Active - 1 problem intervention scheduled/documented in this visit Teaching and Training Skilled 07/11/2018 Disciplines: nursing Long-Term teaching and training. Variance Visit Notes Intervention Associated Status Problem/Go al Patient scored a [address] Couch notified. And patient aware of dr being notified. Assess Depression Problem: Completed Description: Depression Assess for signs and symptoms of depression. Report worsening symptoms to MD, evaluate need for social service referral. HH Abuse/Neglect Problem: Completed Description: Home Initiate abuse/neglect Safety reporting mechanism per agency policy and regulatory requirements. Instruct home safety Problem: Completed Description: Home Instruct on safe use of Safety equipment, transfer techniques, and home modifications. Skilled assessment risk Problem: Completed for injury Home Description: Safety Assess patient's sensory perception, ability for ambulation and movement, disorientation or changes in mentation. Assess the home environment for potential hazards. Monitor ongoing for changes to patient Fall Risk Assessment. Skilled assessment risk Problem: Completed for infection Knowledge Description: deficit on Assess for s/s of preventing infection. Assess Patient infection for knowledge related to with infection prevention, how therapies to recognize s/s of infection, and when to notify HH and/or physician. Patient reports no medication changes and reports Eugenie the RN at [address] manages medications. Skilled assessment Problem: Completed medications Medication Description: s Perform medication reconciliation. Review and identify any unnecessary therapeutic duplication. Assess patient/caregiver ability to manage medications. Assess patient/caregiver knowledge of drug allergies, dose/route/frequency, new or changed medications, classification, reason for taking, effectiveness, drug interactions, food interactions, side effects/adverse reactions, contraindications, duplicative therapy, lab tests required, and ability to use pill box and/or medication list. Assess ability to obtain medications (access/financial). Evaluate the effectiveness of the current treatment regimen and notify physician for the need for changes in the plan of care. Skilled assessment Problem: Completed nutrition Nutritiona Description: l concerns Assess patient's current nutritional status, factors that affect the patient's ability to purchase and prepare meals, current eating practices, and current knowledge of intake requirements. Skilled assessment pain Problem: Completed Description: Physical Assess and document: the Discomfort [...] care. Sn to obtain pulse ox Problem: Completed reading Pulse Description: Oximetry Monitor and record O2 saturation when at rest. Evaluate the effectiveness of current therapy, and notify physician of the need for modifications to the treatment plan. Skilled observation and Problem: Completed assessment Skilled Description: Observatio Skilled observation and n and assessment due to recent Assessment hospitalization, alteration in patient's medical condition, alteration in patient's plan of treatment, recent surgery and recent injury. Education provided on infection prevention and signs of infection and who and when to notify. Patient verbalizes understanding. Teaching and training as Problem: Completed specified Teaching Description: and SN to visit for teaching Training and training related to CHF, COPD, diabetes, signs and symptoms of infection, infection prevention, dietary restrictions, mobility restrictions, home safety, medications and possible complications and prevention of complications. documented in this encounter Home Health Visit - Actions and Narratives Called and left VM for Dr. Iza bill patient's depression screening. Patient is currently taking Prozac 40 mg daily. documented in this encounter
--- OUTSIDE RECORDS SUMMARY | 2020-03-24 13:46 | XMS REPORT | Encounter Summary ---
Author Author [facility] Address Unknown Phone Unavailable Care Team Providers Care Patient Service Technician Pst Name Role Phone Claus Couch MD PCP Reason for Visit * Auth/Cert Referred By Contact Referred To Contact Status Reason Specialty Diagnoses / Procedures [facility] Health [address] [place] [address] Home Health Encounter Details Care Team Description Date Type Department Marissa Pitts RN SN - HOME VISIT 08/08/2018 Home Care Visit [facility]alt [facility] [address] [place] [address] Social History Date Tobacco Use [...] Signs Reading Time Taken Comments Vital Sign - - Blood Pressure 62 08/08/2018 2:05 PM CDT Pulse - - Temperature 20 08/08/2018 2:05 PM CDT Respiratory Rate 94% 08/08/2018 2:05 PM CDT Oxygen Saturation - - Inhaled [...] - SN - HOME VISIT Discipline - Group Home Status Goals Interventions Problem Descriptio Start Date n Active - 1 problem intervention scheduled/documented in this visit Depression Depression 07/11/2018 Disciplines: Group Home Active - 3 problem interventions scheduled/documented in this visit Home Safety Home 07/11/2018 Disciplines: safety Group Home Active - 1 problem intervention scheduled/documented in this visit Knowledge deficit on Infection 07/11/2018 preventing infection with prevention therapies . Disciplines: Group Home Active - 1 problem intervention scheduled/documented in this visit Medications Management 07/11/2018 Disciplines: of home Group Home medication s Active - 1 problem intervention scheduled/documented in this visit Nutritional concerns Nutritiona 07/11/2018 Disciplines: l intake Group Home concerns Active - 1 problem intervention scheduled/documented in this visit Physical Discomfort Alteration 07/11/2018 Disciplines: in comfort Group Home Active - 1 problem intervention scheduled/documented in this visit Pulse Oximetry Skilled 07/11/2018 Disciplines: assessment Group Home and monitoring of O2 saturation s. Active - 1 problem intervention scheduled/documented in this visit Skilled Observation and Skilled 07/11/2018 Assessment nursing Disciplines: observatio Group Home n and assessment . Active - 1 problem intervention scheduled/documented in this visit Teaching and Training Skilled 07/11/2018 Disciplines: nursing Group Home teaching and training. Variance Visit Notes Intervention Associated Status Problem/Go al Assess Depression Problem: Scheduled Description: Depression Assess for signs and symptoms of depression. Report worsening symptoms to MD, evaluate need for social service referral. Instruct home safety Problem: Completed Description: Home Instruct on safe use of Safety equipment, transfer techniques, and home modifications. Skilled assessment risk Problem: Completed for injury Home Description: Safety Assess patient's sensory perception, ability for ambulation and movement, disorientation or changes in mentation. Assess the home environment for potential hazards. Monitor ongoing for changes to patient Fall Risk Assessment. HH Abuse/Neglect Problem: Scheduled Description: Home Initiate abuse/neglect Safety reporting mechanism per agency policy and regulatory requirements. Skilled assessment risk Problem: Completed for infection Knowledge Description: deficit on Assess for s/s of preventing infection. Assess Patient infection for knowledge related to with infection prevention, how therapies to recognize s/s of infection, and when to notify HH and/or physician. Skilled assessment Problem: Completed medications Medication Description: [...] recent injury. Teaching and training as Problem: Completed specified Teaching Description: and SN to visit for teaching Training and training related to CHF, COPD, diabetes, signs and symptoms of infection, infection prevention, dietary restrictions, mobility restrictions, home safety, medications and possible complications and prevention of complications. documented in this encounter
--- OUTSIDE RECORDS SUMMARY | 2020-03-24 13:46 | XMS REPORT | Encounter Summary ---
Author Author [facility] Organization [facility] Address Unknown Phone Unavailable Care Team Providers Care Pot Fluxer Name Role Phone Claus Couch MD PCP Reason for Visit * Reason Comments Medication Refill Encounter Details Care Team Description Date Type Department Claus Couch MD [address] [place] [address] 08/12/2018 Refill [facility] Primar y Care [place] [address] [place] [address] Social History Date Tobacco Use [...]
--- OUTSIDE RECORDS SUMMARY | 2020-03-24 13:46 | XMS REPORT | Encounter Summary ---
Author Author [facility] Organization [facility] Address Unknown Phone Unavailable Care Team Providers Care Neckties Painter Name Role Phone Claus Couch MD PCP Reason for Visit * Auth/Cert Referred By Contact Referred To Contact Status Reason Specialty Diagnoses / Procedures [facility] [place] [address] [place] [address] Home Health Encounter Details Care Team Description Date Type Department Walter Arroyo Physical Therapist PT - HOME VISIT 08/23/2018 [facility] [address] [place] [address] Social History Date Tobacco Use [...] Signs Reading Time Taken Comments Vital Sign 115/60 08/23/2018 11:17 AM CDT Blood Pressure 87 08/23/2018 11:17 AM CDT Pulse - - Temperature 18 08/23/2018 11:17 AM CDT Respiratory Rate 98% 08/23/2018 11:17 AM CDT Oxygen Saturation - - Inhaled [...] Visit Notes Intervention Associated Status Problem/Go al Education on not smoking with oxygen use. Patient has O2 off and goes to seperate room to smoke. Instruct home safety Problem: Scheduled Description: Home Instruct Patient and Safety Caregiver as needed in home and fall safety precautions through the Fall Prevention Program. Supine glut sets, hip ABD/ADD, and Aps x 20 2 sets SLR x 20 reps each . Sit to stands x 10 SBA to CGA. LAQs x 20 in sitting Ham pulls with yellow T band sitting.each leg x 20 . Sitting hip ABD with yellow T band x 20' Seated bilateral punches and rows with red T tube x 20 each. PT establish or upgrade Problem: Scheduled home program PT Description: Establish Home exercise program for or Upgrade Ability to perform HEP, Home Increase in strength and Program endurance. Gait 140 ft. x 2 stopping due to SOB and weakness. worked on proper walker placement and backing to sit keeping walker close Pt gait training Problem: Scheduled Description: PT Gait Evaluate and instruct Training Patient and Caregiver in safe gait training on all surfaces including step training as needed in home or to exit home, full weight bearing and using walker. documented in this encounter Home Health Visit - Actions and Narratives Seated and standing AROM and RROM UE an d LE exercise for strength Education on oxygen safety Gait training 2x 140 ft. Oxygen saturations stayed high even whe n he was winded and short of breath. He was very motivated to do his exercise. documented in this encounter
--- OUTSIDE RECORDS SUMMARY | 2020-03-24 13:46 | XMS REPORT | Encounter Summary ---
Author Author [facility] Organization [facility] Address Unknown Phone Unavailable Care Team Providers Care Access Lead Name Role Phone Claus Couch MD PCP Reason for Visit * Auth/Cert Referred By Contact Referred To Contact Status Reason Specialty Diagnoses / Procedures [facility] [place] [address] [place] [address] Home Health Encounter Details Care Team Description Date Type Department Harley Holland, Occupational Therapist OT - DISCIPLINE DISCHARGE 08/04/2018 [facility] [address] [place] [address] Social History Date Tobacco Use [...] Signs Reading Time Taken Comments Vital Sign 112/66 08/04/2018 11:27 AM CDT Blood Pressure - - Pulse - - Temperature - - Respiratory Rate - - Oxygen Saturation - - Inhaled Oxygen Concentration - - Weight - - Height - - Body Mass Index documented in this encounter Plan of Treatment Not on filedocumented as of this encounter Visit Diagnoses Not on filedocumented in this encounter Additional Health Concerns Assessment Noted Time A Hypertension Plan of Care has been documented for t pati patient 02/12/2017 12:54 PM CDT A Depression follow-up plan has been documented for t pati patient 03/14/2018 11:52 AM CDT documented as of this encounter Home Health Visit - Care Plan Visit Type - OT - DISCIPLINE DISCHARGE Discipline - Occupational Therapy Status Goals Interventions Problem Descriptio Start Date n Active - 1 problem intervention scheduled/documented in this visit OT Evaluation Evaluation 07/12/2018 Disciplines: of the Occupational Therapy home environmen t to determine OT needs related to physical and psychosoci al testing, identifica tion of accessibil ity and safety concerns. Establish plan of care, rehabilita tion goals and potential, and recommenda tions for home modificati Active - 1 problem intervention scheduled/documented in this visit OT IADL/ADL Training IADL/ADL 07/12/2018 Disciplines: training Occupational Therapy Variance Visit Notes Intervention Associated Status Problem/Go al Patient's activity tolerance have improved sufficiently for patient to safely complete toileting/toilet transfers with walker without physical assistance. However, patient did fall recently and continues to be a high fall risk due to limited dynamic standing balance. Therefore, patient does not appear capable meeting OT goals involving completion of toileting/toilet transfer without supervision. Patient's caregiver acknowledged that patient's overall level of function appears similar to prior level and acknowledged that caregivers plan to provide necessary level of assistance and supervision. No further OT treatment indicated at this time. DC from OT. OT evaluation Problem: Completed Description: OT Occupational therapy for Evaluation evaluation of the patient's condition. Treat as indicated related to occupational therapy and rehabilitation potential. Patient completed [id number] from wheelchair and ambulated with walker from living room to bathroom, urinated while standing, and ambulated back to wheelchair with SBA. After resting, patient completed 2x5 reps of [id number] with walker. OT reviewed HEP recommendations, encouraging patient to walk with walker and caregiver supervision every 2 hours during daytime. Patient declined further exercise, reporting that he needs o rest before HH PT arrives. OT IADL/ADL training Problem: Completed Description: OT Occupational Therapist to IADL/ADL visit for assessment, Training planning, teaching/training, and evaluation of the POC related to patient's ability to perform IADLs/ADLs due to weakness. documented in this encounter
--- OUTSIDE RECORDS SUMMARY | 2020-03-24 13:46 | XMS REPORT | Encounter Summary ---
Author Author [facility] Organization [facility] Address Unknown Phone Unavailable Care Team Providers Care Sustainability Consultant Name Role Phone Claus Couch MD PCP Reason for Visit * Reason Comments Medication Refill Encounter Details Care Team Description Date Type Department Claus Couch MD [address] [place] [address] 08/11/2018 Refill [facility] Primar y Care [place] [address] [place] [address] Social History Date Tobacco Use [...]
--- OUTSIDE RECORDS SUMMARY | 2020-03-24 13:46 | XMS REPORT | Encounter Summary ---
Author Author [facility] Organization [facility] Address Unknown Phone Unavailable Care Team Providers Care Fluorescent Lamp Replacer Name Role Phone Claus Couch MD PCP Reason for Visit * Reason Comments Medication Refill Encounter Details Care Team Description Date Type Department Claus Couch MD [address] [place] [address] 08/10/2018 Refill [facility] Primar y Care [place] [address] [place] [address] Social History Date Tobacco Use [...]
--- OUTSIDE RECORDS SUMMARY | 2020-03-24 13:46 | XMS REPORT | Encounter Summary ---
Author Author [facility] Organization [facility] Address Unknown Phone Unavailable Care Team Providers Care Forest Ecologist Name Role Phone Claus Couch MD PCP Reason for Visit * Auth/Cert Referred By Contact Referred To Contact Status Reason Specialty Diagnoses / Procedures [facility] [address] [place] [address] Home Health Encounter Details Care Team Description Date Type Department Odell Casillas, Physical Therapist PT - HOME VISIT 08[facility]16[facility] [address] [place] [address] Social History Date Tobacco Use [...] endurance. Patient is able to ambulate approximately 120' with FWW and CGA to SBA with [...]
--- OUTSIDE RECORDS SUMMARY | 2020-03-24 13:46 | XMS REPORT | Encounter Summary ---
Author Author [facility] Organization [facility] Address Unknown Phone Unavailable Care Team Providers Care Rubber Goods Tester Name Role Phone Claus Couch MD PCP Reason for Visit * Auth/Cert Referred By Contact Referred To Contact Status Reason Specialty Diagnoses / Procedures [facility] [place] [id number] [place] [address] Home Health Encounter Details Care Team Description Date Type Department Marissa Pitts RN SN - DISCIPLINE DISCHARGE 08/24/2018 Home Care Visit [facility] [address] [place] [address] Social History Date Tobacco Use [...] Signs Reading Time Taken Comments Vital Sign 118/60 08/24/2018 3:35 PM CDT Blood Pressure 80 08/24/2018 3:35 PM CDT Pulse - - Temperature 20 08/24/2018 3:35 PM CDT Respiratory Rate 97% 08/24/2018 3:35 PM [...] Care Plan Visit Type - SN - DISCIPLINE DISCHARGE Discipline - Senior Living Status Goals Interventions Problem Descriptio Start Date n Active - 1 problem intervention scheduled/documented in this visit Depression Depression 07/11/2018 Disciplines: Senior Living Active - 3 problem interventions scheduled/documented in this visit Home Safety Home 07/11/2018 Disciplines: safety Senior Living Active - 1 problem intervention scheduled/documented in this visit Knowledge deficit on Infection 07/11/2018 preventing infection with prevention therapies . Disciplines: Senior Living Active - 1 problem intervention scheduled/documented in this visit Nutritional concerns Nutritiona 07/11/2018 Disciplines: l intake Senior Living concerns Active - 1 problem intervention scheduled/documented in this visit Physical Discomfort Alteration 07/11/2018 Disciplines: in comfort Senior Living Active - 1 problem intervention scheduled/documented in this visit Pulse Oximetry Skilled 07/11/2018 Disciplines: assessment Senior Living and monitoring of O2 saturation s. Active - 1 problem intervention scheduled/documented in this visit Skilled Observation and Skilled 07/11/2018 Assessment nursing Disciplines: observatio Senior Living n and assessment . Active - 1 problem intervention scheduled/documented in this visit Teaching and Training Skilled 07/11/2018 Disciplines: nursing Senior Living teaching and training. Variance Visit Notes Intervention Associated Status Problem/Go al Assess Depression Problem: Completed Description: Depression Assess [...] HH and/or physician. Skilled assessment Problem: Completed nutrition Nutritiona Description: [...]
--- OUTSIDE RECORDS SUMMARY | 2020-03-24 13:46 | XMS REPORT | Encounter Summary ---
Author Author [facility] Organization [facility] Address Unknown Phone Unavailable Care Team Providers Care Plumbing Assembler Installer Name Role Phone Claus Couch MD PCP Reason for Visit * Auth/Cert Referred By Contact Referred To Contact Status Reason Specialty Diagnoses / Procedures [facility] [id number] [place] [address] Home Health Encounter Details Care Team Description Date Type Department Marissa Pitts RN SN - HOME VISIT 08/02/2018 Home Care Visit [facility] [address] [place] [address] Social History Date Tobacco Use [...] Comments Vital Sign - - Blood Pressure 80 08/02/2018 10:00 AM CDT Pulse - - Temperature 20 08/02/2018 10:00 AM CDT Respiratory Rate 96% 08/02/2018 10:00 AM CDT Oxygen Saturation - - Inhaled [...] - SN - HOME VISIT Discipline - Chcf Status Goals Interventions Problem Descriptio Start Date n Active - 1 problem intervention scheduled/documented in this visit Depression Depression 07/11/2018 Disciplines: Chcf Active - 3 problem interventions scheduled/documented in this visit Home Safety Home 07/11/2018 Disciplines: safety [facility] Active - 1 problem intervention scheduled/documented in this visit Knowledge deficit on Infection 07/11/2018 preventing infection with prevention therapies . Disciplines: [facility] Active - 1 problem intervention scheduled/documented in this visit Medications Management 07/11/2018 Disciplines: of home [facility] medication s Active - 1 problem intervention scheduled/documented in this visit Nutritional concerns Nutritiona 07/11/2018 Disciplines: l intake [facility] concerns Active - 1 problem intervention scheduled/documented in this visit Physical Discomfort Alteration 07/11/2018 Disciplines: in comfort [facility] Active - 1 problem intervention scheduled/documented in this visit Pulse Oximetry Skilled 07/11/2018 Disciplines: assessment [facility] and monitoring of O2 saturation s. Active - 1 problem intervention scheduled/documented in this visit Skilled Observation and Skilled 07/11/2018 Assessment nursing Disciplines: observatio Chcf n and assessment . Active - 1 problem intervention scheduled/documented in this visit Teaching and Training Skilled 07/11/2018 Disciplines: nursing Chcf teaching and training. Variance Visit Notes Intervention [...]
--- OUTSIDE RECORDS SUMMARY | 2020-03-24 13:46 | XMS REPORT | Encounter Summary ---
Author Author [facility] Organization [facility] Address Unknown Phone Unavailable Care Team Providers Care Filler Sifter Machine Name Role Phone Claus Couch MD PCP Reason for Visit * Auth/Cert Referred By Contact Referred To Contact Status Reason Specialty Diagnoses / Procedures [facility] [id number] [place] [address] Home Health Encounter Details Care Team Description Date Type Department Odell Casillas, Physical Therapist PT - HOME VISIT 08/02/2018 Home Care Visit [facility] [address] [place] [address] Social History Date Tobacco Use [...] in strength and Program endurance. Gait training with walker and VC to normalize gait pattern and correct sequencing to increase safety,weight shift during mobility with emphasis on stride length,step width,posture,turning and increase ERNESTINA for balance,patient amb x80' with SBA. Pt gait training Problem: Completed Description: PT [...]
--- OUTSIDE RECORDS SUMMARY | 2020-03-24 13:46 | XMS REPORT | Encounter Summary ---
Author Author [facility] Organization [facility] Address Unknown Phone Unavailable Care Team Providers Care Stove Mechanic Name Role Phone Claus Couch MD PCP Reason for Visit * Auth/Cert Referred By Contact Referred To Contact Status Reason Specialty Diagnoses / Procedures [facility] [id number] [place] [address] Home Health Encounter Details Care Team Description Date Type Department Odell Casillas, Physical Therapist PT - HOME VISIT 08/25/2018 [facility] [address] [place] [address] Social History Date Tobacco Use [...] Notes Intervention Associated Status Problem/Go al Patient was instructed to continue with his right hip precautions and avoid bending down. Instruct home safety Problem: Completed Description: Home [...] Increase in strength and Program endurance. Patient continue to ambulate x150' with FWW and CGA to SBA with [...]
--- OUTSIDE RECORDS SUMMARY | 2020-03-24 13:46 | XMS REPORT | Encounter Summary ---
Author Author [facility] Organization [facility] Address Unknown Phone Unavailable Care Team Providers Care Jewel Bearing Maker Name Role Phone Claus Couch MD PCP Reason for Visit * Reason Comments Medication Refill Encounter Details Care Team Description Date Type Department Claus Couch MD [address] [place] [address] 08/09/2018 Refill [facility] Primar y Care Batchelor [address] [place] [address] Social History Date Tobacco Use [...]
--- OUTSIDE RECORDS SUMMARY | 2020-03-24 13:46 | XMS REPORT | Encounter Summary ---
Author Author [facility] Organization [facility] Address Unknown Phone Unavailable Care Team Providers Care Workers Compensation Claims Assistant Name Role Phone Claus Couch MD PCP Reason for Visit * Auth/Cert Referred By Contact Referred To Contact Status Reason Specialty Diagnoses / Procedures [facility] [id number] [place] [address] Home Health Encounter Details Care Team Description Date Type Department Karishma Ge, General Office Worker OT - HOME VISIT 08/01/2018 Home Care Visit [facility] [address] [place] [address] Social History Date Tobacco Use [...] Signs Reading Time Taken Comments Vital Sign 110/60 08/01/2018 1:25 PM CDT Blood Pressure 83 08/01/2018 1:25 PM CDT Pulse - - Temperature - - Respiratory Rate 98% 08/01/2018 1:25 PM CDT Oxygen Saturation - - Inhaled [...] Care Plan Visit Type - OT - HOME VISIT Discipline - Occupational Therapy Status Goals Interventions Problem Descriptio Start Date n Active - 1 problem intervention scheduled/documented in this visit OT IADL/ADL Training IADL/ADL 07/12/2018 Disciplines: training Occupational Therapy Variance Visit Notes Intervention Associated Status Problem/Go al Patient seated in recliner on arrival. ARISTEO obtained answers for Post Fall Assessment from patient. Patient performed sit to stand from chair to 2WW with CGA and stood x2 minutes, shifting weight. Patient transferred back into chair. Patient performed 5x15 reps seated UE theraband exercises. Patient requested to be finished this date to rest. Patient left seated in recliner with caregiver present. Patient demonstrated increased pain upon standing on R knee. RENTAL CLERK noted swelling in R knee, patient's caregiver reported patient getting injection for inflammation. Patient unable to perform added standing or ambulation this date due to pain in R knee from fall. OT IADL/ADL training Problem: Completed Description: OT Occupational Therapist to IADL/ADL visit for assessment, Training planning, teaching/training, and evaluation of the POC related to patient's ability to perform IADLs/ADLs due to weakness. documented in this encounter Home Health Visit - Actions and Narratives Patient and caregiver report patient fa lling this morning and going to the ER for xrays. Xrays showed no new fractures and patient was given injection in R knee to reduce inflammation. documented in this encounter
--- OUTSIDE RECORDS SUMMARY | 2020-03-24 13:46 | XMS REPORT | Encounter Summary ---
Author Author [facility] Address Unknown Phone Unavailable Care Team Providers Care Landfill Grader Name Role Phone Claus Couch MD PCP Reason for Visit * Reason Comments Hip Pain right hip pain after fallin g while trying to get his pants on. Reports falling on hardwood floor. Knee Pain right knee pain from fall Encounter Details Care Team Description Date Type Department Deirdre Go MD [address] [place] [address] Fall from standing, initial encounter (P rimary Dx); Right hip pain; Acute pain of right knee 08/01/2018 Emergency [facility] Emergency Department [address] [address] Social History Date Tobacco [...] Signs Reading Time Taken Comments Vital Sign 101/73 08/01/2018 11:39 AM CDT Blood Pressure - - Pulse 36.3 C (97.4 F) 08/01/2018 11:39 AM CDT Temperature 18 08/01/2018 11:39 AM CDT Respiratory Rate 97% 08/01/2018 11:39 AM CDT Oxygen Saturation - - Inhaled Oxygen Concentration - - Weight - - Height - - Body Mass Index documented in this encounter Discharge Instructions * Instructions* Deirdre Go MD - 08/01/2018 No change to medications. This is the second time I have seen you in 1 month due to a fall and the prior time you broke your right hip. I recommend that you live in a [place] [facility] [place], as even with care attendants, you continue to have injuries and limitations and you need more assistance. No fractures this time. See your provider later this week in follow up. documented in this encounter Medications at Time [...] Drop in both eyes 2 times daily. 07/25/2018 08/26/2018 oxyCODONE (OxyCONTIN) 20 TAKE 1 TABLET 20 Tablet 0 mg Controlled Release 12 BY MOUTH hour crush resistant EVERY 12 tablet HOURS 07/13/2018 08/12/2018 ondansetron (ZOFRAN ODT) DISSOLVE 1 30 Tablet 0 4 mg Tablet, Rapid TABLET ON Dissolve TONGUE EVERY 8 HOURS NEEDED FOR NAUSEA/EMESIS 04/29/2018 11/03/2018 simvastatin (ZOCOR) 40 mg TAKE ONE 90 Tablet 1 tablet TABLET (40MG) BY MOUTH EVERY DAY IN THE EVENING 04/29/2018 11/03/2018 bethanechol (URECHOLINE) Take 1 Tablet 120 Tablet 3 25 mg tablet (25 mg) by mouth 4 times daily. 04/27/2018 11/03/2018 ezetimibe (ZETIA) 10 mg Take 1 Tab by 30 Tablet 5 tablet mouth daily at bedtime. 04/27/2018 08/10/2018 LORazepam (ATIVAN) 1 mg Take 1 Tablet 60 Tablet 2 tablet (1 mg) by mouth 2 times daily. 04/27/2018 11/04/2018 Magnesium 250 mg Tablet Take 1 Tablet 60 Tablet 5 by mouth every 12 hours. 04/27/2018 11/03/2018 phenytoin sodium Take 2 120 Capsule 2 (DILANTIN) 100 mg Capsules (200 extended release capsule mg) by mouth 2 times daily. 04/27/2018 08/10/2018 temazepam (RESTORIL) 7.5 Take 1 30 Capsule 2 mg capsule Capsule (7.5 mg) by mouth nightly as needed for Insomnia. 03/30/2018 11/03/2018 OLANZapine (ZyPREXA) 2.5 Take 1 [...] AFTER SUPPER. documented as of this encounter ED Notes * Deirdre Go MD - 08/01/2018 11:13 AM CDT HISTORY OF PRESENT ILLNESS Oliverio Dalton, a 67 y.o. male presents to the ED with a Chief Complaint of Hi p Pain and Knee Pain Subjective The pt was seen by this provider on 07/04/18 with a fxd rt hip. He had it repaire d and has returned home with a ocular care aide. The pt tried to put his pants on, and lost his balance falling and landing on his rt hip and knee. He is here via EMS with complaints of pain. REVIEW OF SYSTEMS Review of Systems Musculoskeletal: Positive for arthralgias and gait problem. Neurological: Negative for seizures, weakness and numbness. All other systems reviewed and are negative. PAST MEDICAL HISTORY REVIEWED MEDICAL: Patient has a past medical history of Anxiety; Asthma; Cataract; Chronic ischem ic heart disease, unspecified; Contusion, back (08/16/03); COPD (chronic obstruct humberto pulmonary disease); Coronary artery disease; Diabetes; Glaucoma; Hip fractur e, left; Seizure disorder; Unspecified disease of respiratory system; Unspecifie d disorder of lipoid metabolism; Unspecified essential hypertension; and Wrist s prain (08/10). SURGICAL: Patient has a past surgical history that includes hx surgical other (05/2001); h x cataract removal (2000); hx surgical other (2001); hx surgical other (1999); h x surgical other (11/2001); hx turp (08/2003); hx surgical other (04/12); hx surgi donovan other (09/12); hx surgical other (08/14); psa (09/13); hx surgical other (); pr colonoscopy flx dx w/collj spec when pfrmd (02/01/2009); hx hernia repair (1988); hx lap cholecystectomy (05/17/07); hx coronary artery bypass graft; hx h eart catheterization (04/10); pr lap,appendectomy (05/28/2012); pr repair umbilica l colleen,5+y/o,reduc (05/28/2012); pr colonoscopy flx dx w/collj spec when pfrmd (); hx hernia inguinal repair (Right, 03/08/2015); and hx hip surgery (Left , 03/07/2017). FAMILY: Patient's family history includes Asthma in his mother and sister; Diabetes in h is mother and sister; Healthy in his daughter, daughter, daughter, son, son, son , and son; Heart Disease in his sister and son; Lung Cancer in his brother; Othe r in his father, mother, and sister; Respiratory Disease in his mother and siste r; Seizures in his brother. SOCIAL: reports that he has been smoking Cigarettes. He has a 80.00 pack-year smoking history. He has never used smokeless tobacco. He reports that he currently engag es in sexual activity and has had female partners. He reports that he does not d rink alcohol or use drugs. No history on file. Social History Other Topics Concern Not on file PROBLEM LIST: Patient has Renal stone; Essential hypertension; Seizure; Hypertrophy of prostat e without urinary obstruction and other lower urinary tract symptoms (LUTS); Magdalena rogenic bladder; Unspecified glaucoma(365.9); Bipolar disorder; Hyperlipidemia; Tubular adenoma; Status post laparoscopic appendectomy; Umbilical hernia without mention of obstruction or gangrene; Bradycardia; Back pain; LFT elevation; Oste oarthritis of right knee; Carpal tunnel syndrome; Diabetes mellitus; CAD (shah ry artery disease); COPD (chronic obstructive pulmonary disease); Seizure disord er; Depression; Suicidal behavior; Status post colonoscopy; Status post right in guinal hernia repair; Ulcers of both lower legs, limited to breakdown of skin; C igarette dependence; Closed displaced fracture of middle phalanx of right little finger; Left hip pain; Hyponatremia; Frequent falls; Acute cystitis without hem aturia; Hyponatremia; Oral thrush; Pressure ulcer of coccygeal region, stage 3; Decubitus ulcer of left buttock, stage 3; Decubitus ulcer of right buttock, stag e 3; Stable angina; Major depression; Right lateral epicondylitis; Closed fractu re of right hip; Acute WA, subendocardial; Fall from standing; and Anemia, chron ic disease on his problem list. ALLERGIES Penicillins; Codeine; Doxycycline; Phenobarbital; Piperacillin-tazobactam; Septr a [sulfamethoxazole-trimethoprim]; Terazosin; and Valium [diazepam] HOME MEDICATIONS Patient's Home Medications Current Home Medications ALBUTEROL HFA 90 MCG INHALER BETHANECHOL (URECHOLINE) 25 MG TABLET BETIMOL 0.5 % OP DROP BLOOD SUGAR DIAGNOSTIC (ACCU-CHEK ACTIVE TEST) MISC STRP CLOPIDOGREL (PLAVIX) 75 MG TABLET EZETIMIBE (ZETIA) 10 MG TABLET FENOFIBRATE NANOCRYSTALLIZED (TRICOR) 145 MG TABLET FLUOXETINE (PROZAC) 20 MG CAPSULE FLUTICASONE (FLOVENT HFA) 110 MCG/ACTUATION HFA AEROSOL INHALER GABAPENTIN (NEURONTIN) 300 MG CAPSULE HYDROCODONE-ACETAMINOPHEN (NORCO) 5-325 MG TABLET ISOSORBIDE MONONITRATE (IMDUR) 60 MG EXTENDED RELEASE 24 HOUR TABLET LORATADINE (CLARITIN) 10 MG TABLET LORAZEPAM (ATIVAN) 1 MG TABLET MAGNESIUM 250 MG TABLET MULTIVITAMIN (DAILY-DAVID) TABLET NITROGLYCERIN (NITROSTAT) 0.4 MG TABLET, SUBLINGUAL NYSTATIN (NYSTOP) 100,000 UNIT/GRAM POWDER OLANZAPINE (ZYPREXA) 2.5 MG TABLET ONDANSETRON (ZOFRAN ODT) 4 MG TABLET, RAPID DISSOLVE OXYCODONE (OXYCONTIN) 20 MG CONTROLLED RELEASE 12 HOUR CRUSH RESISTANT TABLET PHENYTOIN SODIUM (DILANTIN) 100 MG EXTENDED RELEASE CAPSULE PIOGLITAZONE (ACTOS) 30 MG TABLET POLYETHYLENE GLYCOL 3350 (MIRALAX) 17 GRAM/DOSE POWDER RAMIPRIL (ALTACE) 5 MG CAPSULE RANITIDINE (ZANTAC) 150 MG TABLET SENNOSIDES-DOCUSATE SODIUM (SENOKOT-S) 8.6-50 MG TABLET SIMVASTATIN (ZOCOR) 40 MG TABLET TAMSULOSIN (FLOMAX) 0.4 MG CAPSULE TEMAZEPAM (RESTORIL) 7.5 MG CAPSULE TRAZODONE (DESYREL) 50 MG TABLET Medications Modified during this Encounter Medications Discontinued during this Encounter Objective PHYSICAL EXAM INITIAL VS BP: 101/73 (08/01/18 1139), Heart Rate: 83 bpm (08/01/18 1139), Resp: 18 ( 1139), Temp: 97.4 F (36.3 C) (08/01/18 1139), Temp src: Temporal ( 8 1139), SpO2: 97 % (08/01/18 1139), Height: (not recorded), Weight: (not record ed), BMI (Calculated): (not recorded) No LMP for male patient. Physical Exam Constitutional: He appears well-developed and well-nourished. He appears distres sed. Pt appears in pain and does not want to move his rt hip or leg HENT: Head: Atraumatic. Mouth/Throat: Oropharynx is clear and moist. Eyes: EOM are normal. Neck: Neck supple. Cardiovascular: Normal rate, regular rhythm and intact distal pulses. Murmur heard. Pulmonary/Chest: Effort normal and breath sounds normal. Abdominal: Soft. Bowel sounds are normal. Musculoskeletal: He exhibits tenderness. He exhibits no edema. To the rt greater trochanter and rt knee. The pt splints with exam. Nothing america sly appears nml. The rt leg is ap 1.5 inches longer than the lft, pt reports thi s is chronic after a lft hip fx repair. Neurological: He is alert. Skin: Skin is warm. Capillary refill takes less than 2 seconds. He is not diapho retic. Rt hip incision has healed well with no evidence of infection Psychiatric: He has a normal mood and affect. Nursing note and vitals reviewed. DIAGNOSTICS LAB: No data to display RADIOLOGY: XR KNEE 3 VW RIGHT ED Interpretation Prelim, no acute fractures XR PELVIS 1 OR 2 VW XR KNEE 3 VW RIGHT ED Interpretation Prelim, no acute fractures XR PELVIS 1 OR 2 VW Radiologist Impression IMPRESSION: No new acute osseous abnormality EKG: PROCEDURES Procedures MEDICAL DECISION MAKING AND PLAN OF CARE MDM I have reviewed previous: notes and labs I have reviewed current: imaging I have reviewed nursing notes related to past medical history, social history, a nd review of systems and agree, unless otherwise noted. Medications Administered During the ED Stay from 08/01/2018 1113 to 08/01/2018 1 214 Date/Time Order Dose Route Action 08/01/2018 1129 ketorolac (TORADOL) injection 30 mg 30 mg IM Given . New Prescriptions for this Encounter LAST VS BP: 101/73 (08/01/18 113), Heart Rate: 83 bpm (08/01/181138), Resp: 18 ( 113), Temp: 97.4 F (36.3 C) (08/01/18 113), Temp src: Temporal ( 8 113), SpO2: 97 % (08/01/181138) CLINICAL IMPRESSION Final diagnoses: [W19.XXXA] Fall from standing, initial encounter (Primary) [M25.551] Right hip pain [M25.561] Acute pain of right knee DISPOSITION, EDUCATION AND MEDICATION RECONCILIATION Medications reconciled. See after visit summary for patient education on discha rged patients. ED Disposition ED Disposition Condition User Date/Time Comment Discharge Stable Deirdre Go MD WedAug 01, 2018 12:11 PM ATTESTATION STATEMENTS documented in this encounter Plan of Treatment Not on filedocumented as of this encounter Procedures Comments Procedure Name Priority Date/Time Associated Diag nosis XR KNEE 3 VW RIGHT Stat 08/01/2018 11:49 AM CDT XR PELVIS 1 OR 2 VW Stat 08/01/2018 11:49 AM CDT documented in this encounter Results * XR KNEE 3 VW RIGHT (08/01/2018 11:49 AM CDT) Specimen Impressions Performed At IMPRESSION: Osteopenia. Minimal edema Hoffa's fat pad. Minimal edema INTERFACE SYSTEM medial soft tissues. No acute osseous o r acute soft tissue findings. Patellofemoral joint and medial and lat eral compartmental cartilage loss, symmetric. No fracture or dislocation. No signific ant interval change since the prior study 2017. Contact interpreting radiologist number for further physician/mid-level inquiry clinical in formation, imaging correlation/consultation, comments, fol low-up information or questions, ([place], [place]) : OFFICE: [phone] / personal offic e voice mailbox. OFFICE reading station: [phone]. Additional / secondary back up #s: [phone] (lead x-ray tech office). If you are a patient reading this on [email or web address] and have questions, please contact your medical provider. Narrative Performed At RIGHT KNEE X-RAY STUDY: XR KNEE 3 VW RIGHT INTERFACE SYSTEM HISTORY: 67 years Male with f all, pain. TECHNIQUE: VIEWS RIGHT KNEE : 3 FINDINGS: No acute fracture or dislocat ion. Osteopenia/osteoporosis. Postop changes soft tissues medially. Mild patellofemoral joint narrowing. Minimal edema Hoffa's fat pad. No lipohemarthrosis. No acute osseous o r acute soft tissue findings. Minimal medial soft tissue subcutaneous edema. Procedure Note Sienna, Bong Aoaldair Incoming Radiology Results - 08/01/2018 12:28 PM CDT RIGHT KNEE X-RAY STUDY: XR KNEE 3 VW RIGHT HISTORY: 67 years Male with fall, pain. TECHNIQUE: VIEWS RIGHT KNEE : 3 FINDINGS: No acute fracture or dislocation. Osteopenia/osteoporosis. Postop changes soft tissues medially. Mild patellofemoral joint narrowing. Minimal edema Hoffa's fat pad. No lipohemarthrosis. No acute osseous or acute soft tissue findings. Minimal medial soft tissue subcutaneous edema. IMPRESSION: Osteopenia. Minimal edema Hoffa's fat pad. Minimal edema medial soft tissues. No acute osseous or acute soft tissue findings. Patellofemoral joint and medial and lateral compartmental cartilage loss, symmetric. No fracture or dislocation. No significant interval change since the prior study 2017. Contact interpreting radiologist number for further physician/mid-level inquiry clinical information, imaging correlation/consultation, comments, follow-up information or questions, ([facility], [place], [place]): OFFICE: [phone] / personal office voice mailbox. OFFICE reading station: [phone]. Additional / secondary back up #s: [phone] (lead x-ray tech office). If you are a patient reading this on [facility] and have questions, please contact your medical provider. Performing Organization Address City/State/Zipcode Ph one Number INTERFACE SYSTEM INTERFACE SYSTEM Refer to clinic/hospital department * XR PELVIS 1 OR 2 VW (08/01/2018 11:49 AM CDT) Specimen Impressions Performed At IMPRESSION: INTERFACE SYSTEM No new acute osseous abnormality Narrative Performed At AP pelvis 08/01/2018 11:49 AM INTERFACE SYSTEM HISTORY: 67 years Male presents with fa ll, pain COMPARISON: 10/11/2012, 11/30/2017, 2017 FINDINGS: Left gamma nail and right hip pins are now in position. The tip of the left intramedullary now was not seen. T here is healed left intertrochanteric fracture. No new frac ture or dislocation there degenerative changes in the sacroiliac joints. Soft tissues are unchanged. There are surgical clips in the right lower abdomen. Procedure Note Bong El Incoming Radiology Results - 08/01/2018 11:58 AM CDT AP pelvis 08/01/2018 11:49 AM HISTORY: 67 years Male presents with fall, pain COMPARISON: 10/11/2012, 11/30/2017, 07/04/2018 FINDINGS: Left gamma nail and right hip pins are now in position. The tip of the left intramedullary now was not seen. There is healed left intertrochanteric fracture. No new fracture or dislocation there degenerative changes in the sacroiliac joints. Soft tissues are unchanged. There are surgical clips in the right lower abdomen. IMPRESSION: No new acute osseous abnormality Performing Organization Address City/State/Zipcode Ph one Number INTERFACE SYSTEM INTERFACE SYSTEM Refer to clinic/hospital department documented in this encounter Visit Diagnoses Diagnosis Fall from standing, initial encounter - Primary Right hip pain Pain in joint, pelvic region and thigh Acute pain of right knee documented in this encounter Administered Medications Action Date Dose Rate Site Medication Order MAR Action 08/01/2018 11:29 AM CDT 30 mg Arm, Rig ht Upper ketorolac (TORADOL) injection 30 mg Given 30 mg, IM, ONE TIME ONLY, 1 dose, 08/01/18 at 1130, Stat documented in this encounter Additional Health Concerns Assessment Noted Time A Hypertension Plan of Care has been documented for jeremias krueger patient 02/12/2017 12:54 PM CDT A Depression follow-up plan has been documented for jeremias krueger patient 03/14/2018 11:52 AM CDT documented as of this encounter
--- OUTSIDE RECORDS SUMMARY | 2020-03-24 13:46 | XMS REPORT | Encounter Summary ---
Author Author [facility] Organization [facility] Address Unknown Phone Unavailable Care Team Providers Care Fire Ranger Name Role Phone Claus Couch MD PCP Reason for Visit * Auth/Cert Referred By Contact Referred To Contact Status Reason Specialty Diagnoses / Procedures [facility] [place] [address] [place] [address] Home Health Encounter Details Care Team Description Date Type Department Odell Casillas, Physical Therapist PT - REASSESSMENT 08/11/[facility] [address] [place] [address] Social History Date Tobacco Use [...] Care Plan Visit Type - PT - REASSESSMENT Discipline - Physical Therapy Status Goals Interventions [...] Visit Notes Intervention Associated Status Problem/Go al . Instruct home safety Problem: Completed Description: Home [...] with emphasis on stride length,step width,posture,turning and ERNESTINA for balance.Patient amb x80' and SBA. Pt gait training Problem: Completed Description: PT Gait Evaluate and instruct Training Patient and Caregiver in safe gait training on all surfaces including step training as needed in home or to exit home, full weight bearing and using walker. documented in this encounter Home Health Visit - Actions and Narratives Patient continue to requires skilled HH PT services to facilitate [place] with all functional mobility,increase functional activity t olerance and improve balance in order to enhance patient's quality of life by improving ability to safely return to prior level of function,decrease level of assistance from caregivers and perform gait and transfers w/increased safety. documented in this encounter
--- OUTSIDE RECORDS SUMMARY | 2020-03-24 13:46 | XMS REPORT | Encounter Summary ---
Author Author [facility] Organization [facility] Address Unknown Phone Unavailable Care Team Providers Care Public Accountant Name Role Phone Claus Couch MD PCP Reason for Visit * Auth/Cert Referred By Contact Referred To Contact Status Reason Specialty Diagnoses / Procedures [facility] [place] [address] [place] [address] Home Health Encounter Details Care Team Description Date Type Department Odell Casillas, Physical Therapist PT - HOME VISIT 08/18/[address] [facility] [address] [place] [address] Social History Date Tobacco Use [...]
--- OUTSIDE RECORDS SUMMARY | 2020-03-24 13:47 | XMS REPORT | Encounter Summary ---
Author Author [facility] Organization [facility] Address Unknown Phone Unavailable Care Team Providers Care Presser And Shaper Knitted Goods Name Role Phone Claus Couch MD PCP Encounter Details Care Team Description Date Type Department Claus Couch MD [address] [place] [address] 07/25/2018 Abstract [facility] [place] [address] [place] [address] Social History Date Tobacco Use [...]
--- OUTSIDE RECORDS SUMMARY | 2020-03-24 13:47 | XMS REPORT | Encounter Summary ---
Author Author [facility] Organization [facility] Address Unknown Phone Unavailable Care Team Providers Care Environmental Health Technologist Name Role Phone Claus Couch MD PCP Reason for Visit * Auth/Cert Referred By Contact Referred To Contact Status Reason Specialty Diagnoses / Procedures [facility] [place] [place] [address] Home Health Encounter Details Care Team Description Date Type Department Odell Casillas Physical Therapist PT - INITIAL DISCIPLINE VISIT 07/12/2018 [facility] [address] [place] [address] Social History Date Tobacco Use [...] Care Plan Visit Type - PT - INITIAL DISCIPLINE V ISIT Discipline - Physical Therapy Status Goals Interventions Problem Descriptio Start Date n Active - 1 problem intervention scheduled/documented in this visit Home Safety 07/12/2018 Disciplines: Physical Therapy Active - 1 problem intervention scheduled/documented in this visit PT Establish or Upgrade 07/12/2018 Home Program Disciplines: Physical Therapy Active - 1 problem intervention scheduled/documented in this visit PT Evaluation 07/12/2018 Disciplines: Physical Therapy Active - 1 problem intervention scheduled/documented in this visit PT Gait Training 07/12/2018 Disciplines: Physical Therapy Variance Visit Notes Intervention Associated Status Problem/Go al Patient was instructed about maintaining his balance with support during ADL's,with AD in walking activities and all exercises must be performed close to his recliner or use countertop or next to someone.Only perform those exercises as instructed by the Therapist.If instructions are not clearly understood,wait for clarification by therapist before attempting to perform. Instruct home safety Problem: Completed Home Safety Patient performed supine exercises:SAQ,hip abduction,heel slides,quad,ham and gluteal sets.Standing exercises with kitchen counter support:Heel raises,partial squats,hip abduction,hip flexion,hip extension and forward leg kick x10 reps. PT establish or upgrade Problem: Completed home program PT Establish or Upgrade Home Program PT evaluation Problem: Completed PT Evaluation Patient is able to ambulate approximately 40' with FWW and CGA to SBA with step through gait pattern at household distance and VC for safety during turning. Pt gait training Problem: Completed PT Gait Training documented in this encounter Home Health Visit - Actions and Narratives Patient requires skilled HHPT services to facilitate [place] with all functional mobility,increase functional activity t olerance and improve balance in order to enhance patient's quality of life by improving ability to safely return to prior level of function,decrease level of assistance from caregivers and perform gait and transfers w/increased safety. documented in this encounter
--- OUTSIDE RECORDS SUMMARY | 2020-03-24 13:47 | XMS REPORT | Encounter Summary ---
Author Author [facility] Organization [facility] Address Unknown Phone Unavailable Care Team Providers Care Gasoline Attendant Name Role Phone Claus Couch MD PCP Reason for Visit * Auth/Cert Referred By Contact Referred To Contact Status Reason Specialty Diagnoses / Procedures [facility] Home Health [id number] [place] [address] Home Health Encounter Details Care Team Description Date Type Department Karen Up (Student), Outpatient Scheduler PT - HOME VISIT 07/27/2018 [facility] [address] [place] [address] Social History Date Tobacco Use [...] Signs Reading Time Taken Comments Vital Sign 104/58 07/27/2018 10:39 AM CDT Blood Pressure 74 07/27/2018 10:39 AM CDT Pulse - - Temperature - - Respiratory Rate 96% 07/27/2018 10:39 AM CDT Oxygen Saturation - - Inhaled [...] Visit Notes Intervention Associated Status Problem/Go al Not walking without a caregiver present. Instruct home safety Problem: Completed Description: Home Instruct Patient and Safety Caregiver as needed in home and fall safety precautions through the Fall Prevention Program. Standing exercises with walker - heel raises, marching, hip abduction, and mini squats x15 BLE PT establish or upgrade Problem: Completed home program PT Description: Establish Home exercise program for or Upgrade Ability to perform HEP, Home Increase in strength and Program endurance. AMb in the home with FWW. One instance of LOB (unsteady) was able to correct without assistance. CGA for safety. amb 200ft x2 Pt gait training Problem: Completed Description: PT Gait Evaluate and instruct Training Patient and Caregiver in safe gait training on all surfaces including step training as needed in home or to exit home, full weight bearing and using walker. documented in this encounter Home Health Visit - Actions and Narratives Completed toileting today. SBA. Patient was able to tolerate standing at the sick while washing his hands for a short period of time. Goals : "I am going to stand here one of these days to shave my face." documented in this encounter
--- OUTSIDE RECORDS SUMMARY | 2020-03-24 13:47 | XMS REPORT | Encounter Summary ---
Author Author [facility] Organization [facility] Address Unknown Phone Unavailable Care Team Providers Care Metal Machinist Name Role Phone Claus Couch MD PCP Reason for Visit * Auth/Cert Referred By Contact Referred To Contact Status Reason Specialty Diagnoses / Procedures [facility] Home Health [address] [place] [address] Home Health Encounter Details Care Team Description Date Type Department Marissa Pitts RN SN - HOME VISIT 07/13/2018 Home Care Visit [facility] [address] [place] [address] Social History Date Tobacco Use [...] Comments Vital Sign - - Blood Pressure 68 07/13/2018 1:45 PM CDT Pulse - - Temperature 20 07/13/2018 1:45 PM CDT Respiratory Rate 97% 07/13/2018 1:45 PM CDT Oxygen Saturation - - Inhaled [...] - SN - HOME VISIT Discipline - Shelter Status Goals Interventions Problem Descriptio Start Date n Active - 1 problem intervention scheduled/documented in this visit Depression Depression 07/11/2018 Disciplines: Shelter Active - 3 problem interventions scheduled/documented in this visit Home Safety Home 07/11/2018 Disciplines: safety Shelter Active - 2 problem interventions scheduled/documented in this visit Knowledge deficit on Infection 07/11/2018 preventing infection with prevention therapies . Disciplines: Shelter Active - 2 problem interventions scheduled/documented in this visit Nutritional concerns Nutritiona 07/11/2018 Disciplines: l intake Shelter concerns Active - 1 problem intervention scheduled/documented in this visit Physical Discomfort Alteration 07/11/2018 Disciplines: in comfort Shelter Active - 1 problem intervention scheduled/documented in this visit Pulse Oximetry Skilled 07/11/2018 Disciplines: assessment Shelter and monitoring of O2 saturation s. Active - 1 problem intervention scheduled/documented in this visit Skilled Observation and Skilled 07/11/2018 Assessment nursing Disciplines: observatio Shelter n and assessment . Active - 1 problem intervention scheduled/documented in this visit Teaching and Training Skilled 07/11/2018 Disciplines: nursing Shelter teaching and training. Variance Visit Notes Intervention [...] and when to notify HH and/or physician. Instruct infection Problem: Completed prevention Knowledge Description: deficit on Instruct Patient in preventing strategies to prevent infection infection:frequent/proper with hand-washing techniques, therapies Standard precautions, avoid crowds and persons with known infections, staying current with immunizations, s/s of infection, use of incentive spirometer, use of antibiotics and encourage adequate diet and fluid intake. Skilled assessment Problem: Completed nutrition Nutritiona Description: l concerns Assess patient's current nutritional status, factors that affect the patient's ability to purchase and prepare meals, current eating practices, and current knowledge of intake requirements. Teach nutrition Problem: Completed Description: Nutritiona Assist with meal planning l concerns and instruct on nutritional requirements. Instruct / reinforce ordered diet: low salt and diabetic. Instruct on how to keep a daily log of intake of food, carbohydrates, weekly weight, and incidence of changes in diet. Skilled assessment pain Problem: Completed Description: Physical [...] Home Health Visit - Actions and Narratives Pt. aware of ortho appointment and that dressing is to be left on until that appointment for staple removal. documented in this encounter
--- OUTSIDE RECORDS SUMMARY | 2020-03-24 13:47 | XMS REPORT | Encounter Summary ---
Author Author [facility] Organization [facility] Address Unknown Phone Unavailable Care Team Providers Care Seismograph Supervisor Name Role Phone Claus Couch MD PCP Encounter Details Care Team Description Date Type Department Claus Couch MD [address] [place] [address] 07/21/2018 [facility] [address] [place] [address] Social History Date Tobacco Use [...]
--- OUTSIDE RECORDS SUMMARY | 2020-03-24 13:47 | XMS REPORT | Encounter Summary ---
Author Author [facility] Organization [facility] Address Unknown Phone Unavailable Care Team Providers Care Iron Miner Name Role Phone Claus Couch MD PCP Reason for Visit * Auth/Cert Referred By Contact Referred To Contact Status Reason Specialty Diagnoses / Procedures [facility] [address] [place] [address] Home Health Encounter Details Care Team Description Date Type Department Karishma Ge, Pelletizer Operator OT - HOME VISIT 07/26/2018 [facility] [address] [place] [address] Social History Date Tobacco Use [...] Signs Reading Time Taken Comments Vital Sign 135/70 07/26/2018 2:05 PM CDT Blood Pressure 77 07/26/2018 2:05 PM CDT Pulse - - Temperature - - Respiratory Rate 98% 07/26/2018 2:05 PM CDT Oxygen Saturation - - [...] Intervention Associated Status Problem/Go al Patient seated on recliner on arrival. Patient performed sit to stand to 2WW and ambulated to bathroom, urinated while standing, performed hand washing while standing, and transferred into and out of shower with tub transfer bench. Patient ambulated to bedroom, transferred to supine in bed, performed 4x15 reps LE exercises while supine, and patient performed side to side x3 reps. Patient transferred to EOB and ambulated to and transferred into recliner. Patient instructed to continue walking for 5 minutes ever 2 hours throughout the day and performed x40 sit to stands--patient verbalied understanding. Patient left seated on recliner with caregiver present. Patient's activity tolerance appears to be increasing slowly, but patient demonstrated poor activity tolerance this date due to signficant pain. Patient performed all ambulation and standing activities and required CGA due to poor standing balance. Patient demonstrated signicant increase in pain and discomfort during all activities and ambulation this visit. OT IADL/ADL training Problem: Completed Description: OT Occupational Therapist to IADL/ADL visit for assessment, Training planning, teaching/training, and evaluation of the POC related to patient's ability to perform IADLs/ADLs due to weakness. documented in this encounter Home Health Visit - Actions and Narratives Patient's caregiver reported patient's pain was probably due to pain medication wearing off-- patient was due for another pain pill a n hour from when ARISTEO saw patient. documented in this encounter
--- OUTSIDE RECORDS SUMMARY | 2020-03-24 13:47 | XMS REPORT | Encounter Summary ---
Author Author [facility] Organization [facility] Address Unknown Phone Unavailable Care Team Providers Care Computer Assistant Name Role Phone Claus Couch MD PCP Reason for Visit * Reason Comments Medication Refill Encounter Details Care Team Description Date Type Department Claus Couch MD [address] [place] [address] 07/25/2018 Refill [facility] Primar y Care [place] [address] [place] [address] Social History Date Tobacco Use [...]
--- OUTSIDE RECORDS SUMMARY | 2020-03-24 13:47 | XMS REPORT | Encounter Summary ---
Author Author [facility] Address Unknown Phone Unavailable Care Team Providers Care Human Resource Internship Name Role Phone Claus Couch MD PCP Reason for Visit * Auth/Cert Referred By Contact Referred To Contact Status Reason Specialty Diagnoses / Procedures [facility] Health [address] [place] [address] Home Health Encounter Details Care Team Description Date Type Department Harley Holland, Occupational Therapist OT - INITIAL DISCIPLINE VISIT 07/12/2018 [facility] [address] [place] [address] Social History Date Tobacco Use [...] Signs Reading Time Taken Comments Vital Sign 138/74 07/12/2018 9:30 AM CDT Blood Pressure - - Pulse [...] Care Plan Visit Type - OT - INITIAL DISCIPLINE V ISIT Discipline - Occupational Therapy Status Goals Interventions [...] Notes Intervention Associated Status Problem/Go al Patient is a 67 yo male that has returned home S/P ORIF of R femur. Patient lives alone in a one-story home with ramp to enter. Home has clear pathways. Bathroom has tub transfer bench in tub/shower and 3-in-1 commode over toilet. Patient has a lift chair, wheelchair, rolling walker, rollator, and second 3-in-1 commode in living room. Prior to R femur fracture, patient ambulated throughout home with rolling walker but did require physical assistance with bathing/dressing routine. Patient has a hired caregiver for approx 16 hours/day. Caregiver assists with all household and community IADLs. Patient is alert/oriented. Attention/memory are WFL. BUE ROM is WFL. BUE strength is 3/5. Static/dynamic standing balance is poor. Activity tolerance is poor, requiring wheelchair to return to living room after ambulating to bathroom with walker. Patient requires physical assistance with toileting, bathing, and dressing. Patient requires SBA to complete chair and toilet transfers with rolling walker. Patient has not attempted tub transfer since return home. Patient demonstrated a significant level of debility, leading to increased need for physical assistance and supervision during ADL routine and transfers. OT treatment may help to restore function and compensate for limitation but rehab potential is limited by history of dependence on caregiver assistance. OT evaluation Problem: Completed Description: OT Occupational therapy for Evaluation evaluation of the patient's condition. Treat as indicated related to occupational therapy and rehabilitation potential. OT provided HEP education, instructing patient to ambulated with walker with caregiver supervision for 5 minuted every 2 hours during daytime. Patient demonstrated understanding. OT IADL/ADL training Problem: Completed Description: OT Occupational Therapist to IADL/ADL visit for assessment, Training planning, teaching/training, and evaluation of the POC related to patient's ability to perform IADLs/ADLs due to weakness. documented in this encounter
--- OUTSIDE RECORDS SUMMARY | 2020-03-24 13:47 | XMS REPORT | Encounter Summary ---
Author Author [facility] Organization [facility] Address Unknown Phone Unavailable Care Team Providers Care Light Industrial Name Role Phone Claus Couch MD PCP Reason for Visit * Auth/Cert Referred By Contact Referred To Contact Status Reason Specialty Diagnoses / Procedures [facility] [id number] [place] [address] Home Health Encounter Details Care Team Description Date Type Department Karen Up (Student), Asp Web Developer PT - MISSED VISIT WITH TRAVEL 07/20/2018 [facility] [place] [address] [place] [address] Social History Date Tobacco Use [...] Care Plan Visit Type - PT - MISSED VISIT Discipline - Physical Therapy Status Goals [...] Status Problem/Go al Instruct home safety Problem: Scheduled Description: Home Instruct Patient and Safety Caregiver as needed in home and fall safety precautions through the Fall Prevention Program. PT establish or upgrade Problem: Scheduled home program PT Description: Establish Home exercise program for or Upgrade Ability to perform HEP, Home Increase in strength and Program endurance. Pt gait training Problem: Scheduled Description: PT Gait Evaluate and instruct Training Patient and Caregiver in safe gait training on all surfaces including step training as needed in home or to exit home, full weight bearing and using walker. documented in this encounter
--- OUTSIDE RECORDS SUMMARY | 2020-03-24 13:47 | XMS REPORT | Encounter Summary ---
Author Author [facility] Organization [facility] Address Unknown Phone Unavailable Care Team Providers Care Medical Administrative Assistant Name Role Phone Claus Couch MD PCP Reason for Visit * Reason Comments Medication Refill Encounter Details Care Team Description Date Type Department Claus Couch MD [address] [place] [address] 07/12/2018 Refill [facility] Primar y Care [place] [address] [place] [address] Social History Date Tobacco Use [...]
--- OUTSIDE RECORDS SUMMARY | 2020-03-24 13:47 | XMS REPORT | Encounter Summary ---
Author Author [facility] Organization [facility] Address Unknown Phone Unavailable Care Team Providers Care Manpower Development Advisor Name Role Phone Claus Couch MD PCP Encounter Details Care Team Description Date Type Department Claus Couch MD [address] [place] [address] 07/27/2018 Abstract [facility] [address] [place] [address] Social History Date Tobacco Use [...]
--- OUTSIDE RECORDS SUMMARY | 2020-03-24 13:47 | XMS REPORT | Encounter Summary ---
Author Author [facility] Organization [facility] Address Unknown Phone Unavailable Care Team Providers Care Business Administration Instructor Name Role Phone Claus Couch MD PCP Reason for Visit * Auth/Cert Referred By Contact Referred To Contact Status Reason Specialty Diagnoses / Procedures [facility] Health [address] [place] [address] Home Health Encounter Details Care Team Description Date Type Department Karishma Ge, Splitting Machine Operator OT - HOME VISIT 07/18/2018 [facility] [address] [place] [address] Social History Date Tobacco Use [...] Signs Reading Time Taken Comments Vital Sign 140/65 07/18/2018 10:36 AM CDT Blood Pressure 71 07/18/2018 10:36 AM CDT Pulse - - Temperature - - Respiratory Rate 96% 07/18/2018 10:36 AM CDT Oxygen Saturation - - Inhaled [...] Associated Status Problem/Go al Patient seated in lift chair on arrival. Patient performed x5 reps sit to stands with SBA-CGA. Patient ambulated throughout home with 2WW x approximately 60 feet and transferred onto closed commode in bedroom. Patient rested at commode x3 minutes and performed sit to stand with MIN A. Patient ambulated x 40 feet and transferred back into lift chair. Patient instructed to perform x40 sit to stands everyday and x5 minutes walking every hour-- patient and caregiver verbalized understanding. Patient left seated in lift chair to eat breakfast wtih PT on his way. Patient demonstrated increased activity tolerance this visit, but still remains poor and patient is unable to ambulate moderate distances safely without supervision. Patient reported increased pain this visit, but ambulated well with CGA and no LOB. Patient's RN called at beginning of visit due to patient concern about incision site dressing. Patient continues to rely on caregivers for most tasks throughout the day. OT IADL/ADL training Problem: Completed Description: OT Occupational Therapist to IADL/ADL visit for assessment, Training planning, teaching/training, and evaluation of the POC related to patient's ability to perform IADLs/ADLs due to weakness. documented in this encounter Home Health Visit - Actions and Narratives Patient reported he woke up and his inc ision site dressing and surrounding was wet-- MANAGER SUPPLY called patient's RN Pao and informed her and she said she would be there as soon as she could to check it over. Patient reported his sister is st ill trying to get patient a Dr. cosme to obtain more pain medication. documented in this encounter
--- OUTSIDE RECORDS SUMMARY | 2020-03-24 13:47 | XMS REPORT | Encounter Summary ---
Author Author [facility] Organization [facility] Address Unknown Phone Unavailable Care Team Providers Care Registered Nurse Fetal Name Role Phone Claus Couch MD PCP Reason for Visit * Auth/Cert Referred By Contact Referred To Contact Status Reason Specialty Diagnoses / Procedures [facility] Home Health [address] [place] [address] Home Health Encounter Details Care Team Description Date Type Department Marissa Ptits RN SN - HOME VISIT 07/25/2018 [facility] [address] [place] [address] Social History Date Tobacco Use [...] - SN - HOME VISIT Discipline - Mcc Status Goals Interventions Problem Descriptio Start Date n Active - 1 problem intervention scheduled/documented in this visit Depression Depression 07/11/2018 Disciplines: Mcc Active - 3 problem interventions scheduled/documented in this visit Home Safety Home 07/11/2018 Disciplines: safety Mcc Active - 2 problem interventions scheduled/documented in this visit Knowledge deficit on Infection 07/11/2018 preventing infection with prevention therapies . Disciplines: Mcc Active - 1 problem intervention scheduled/documented in this visit Nutritional concerns Nutritiona 07/11/2018 Disciplines: l intake Mcc concerns Active - 1 problem intervention scheduled/documented in this visit Physical Discomfort Alteration 07/11/2018 Disciplines: in comfort Mcc Active - 1 problem intervention scheduled/documented in this visit Pulse Oximetry Skilled 07/11/2018 Disciplines: assessment Mcc and monitoring of O2 saturation s. Active - 1 problem intervention scheduled/documented in this visit Skilled Observation and Skilled 07/11/2018 Assessment nursing Disciplines: observatio Mcc n and assessment . Active - 1 problem intervention scheduled/documented in this visit Teaching and Training Skilled 07/11/2018 Disciplines: nursing Mcc teaching and training. Variance Visit Notes Intervention [...]
--- OUTSIDE RECORDS SUMMARY | 2020-03-24 13:47 | XMS REPORT | Encounter Summary ---
Author Author [facility] Address Unknown Phone Unavailable Care Team Providers Care Platform Worker Name Role Phone Claus Couch MD PCP Reason for Visit * Auth/Cert Referred By Contact Referred To Contact Status Reason Specialty Diagnoses / Procedures [facility] [address] [place] [address] Home Health Encounter Details Care Team Description Date Type Department Karishma Ge, Regional Commercial Sales Manager OT - HOME VISIT 07/27/2018 [facility] [address] [place] [address] Social History Date Tobacco Use [...] Signs Reading Time Taken Comments Vital Sign 115/70 07/27/2018 2:45 PM CDT Blood Pressure 83 07/27/2018 2:45 PM CDT Pulse - - Temperature - - Respiratory Rate 98% 07/27/2018 2:45 PM CDT Oxygen Saturation - - Inhaled [...] Patient seated on recliner on arrival. Patient dons shoes with MIN A. Patient performed sit to stand from recliner to 2WW with 2 attempts and MIN A. Patient's caregiver gave patient pain medication. Patient ambulated and performed static standing x 5.5 minutes. Patient transferred back into recliner and performed 7x10 reps UE theraband exercises. Patient requested to be finished this date due to pain. Patient left seated in recliner with caregiver present. Patient demonstrated fair activity tolerance this date, ambulating and standing for 5.5 minutes without rest break. Patient unable to perform additional ambulation, standing, or transfers due to signficant increase in pain this visit. Patient tolerated all UE exercises well. Patient reported highest pain at 9/10 following ambulation/standing. OT IADL/ADL training Problem: Completed Description: OT Occupational Therapist to IADL/ADL visit for assessment, Training planning, teaching/training, and evaluation of the POC related to patient's ability to perform IADLs/ADLs due to weakness. documented in this encounter Home Health Visit - Actions and Narratives Patient reported he was feeling increas ed fatigue and pain due to having PT earlier this date. documented in this encounter
--- OUTSIDE RECORDS SUMMARY | 2020-03-24 13:47 | XMS REPORT | Encounter Summary ---
Author Author [facility] Organization [facility] Address Unknown Phone Unavailable Care Team Providers Care Machine Helper Name Role Phone Claus Couch MD PCP Reason for Visit * Auth/Cert Referred By Contact Referred To Contact Status Reason Specialty Diagnoses / Procedures [facility] [place] [address] [place] [address] Home Health Encounter Details Care Team Description Date Type Department Odell Casillas, Physical Therapist PT - HOME VISIT 07/14/2018 [facility] [address] [place] [address] Social History Date Tobacco Use [...] intervention scheduled/documented in this visit PT Evaluation Evaluation 07/12/2018 Disciplines: of the Physical Therapy patient's condition, plans related to physical therapy, and rehabilita tion potential. Evaluation of the home environmen t to eliminate structural barriers and to improve safety & increase functional independen ce. Active - 1 problem intervention scheduled/documented in this visit PT Gait Training Gait 07/12/2018 Disciplines: evaluation Physical Therapy and training in appropriat e use of assistive devices. Variance Visit Notes Intervention Associated Status Problem/Go al Instruct home safety Problem: Completed Description: Home Instruct Patient and Safety Caregiver as needed in home and fall safety precautions through the Fall Prevention Program. Patient performed supine(recliner) exercises:SAQ,hip abduction,heel slides,SLR,quad,ham and gluteal sets.Standing exercises with kitchen counter support:Heel raises,partial squats,hip abduction,hip flexion,hip extension and forward leg kick x10 reps. PT establish or upgrade Problem: Completed home program PT Description: Establish Home exercise program for or Upgrade Ability to perform HEP, Home Increase in strength and Program endurance. PT evaluation Problem: Completed Description: PT Physical therapy to visit Evaluation for evaluation of the patient's condition, home environment to eliminate structural barriers and to improve safety, increase functional independence through the use of ramps, adaptive wheelchair, bathroom aides, etc.. Treat as indicated related to physical therapy, and rehabilitation potential. Patient is able to ambulate approximately 60' with FWW and CGA to SBA with [...]
--- OUTSIDE RECORDS SUMMARY | 2020-03-24 13:47 | XMS REPORT | Encounter Summary ---
Author Author [facility] Organization [facility] Address Unknown Phone Unavailable Care Team Providers Care Mid Teacher Name Role Phone Claus Couch MD PCP Encounter Details Care Team Description Date Type Department Claus Couch MD [address] [place] [address] 07/15/2018 [facility] [address] [place] [address] Social History Date Tobacco Use [...]
--- OUTSIDE RECORDS SUMMARY | 2020-03-24 13:47 | XMS REPORT | Encounter Summary ---
Author Author [facility] Organization [facility] Address Unknown Phone Unavailable Care Team Providers Care Placer Miner Name Role Phone Claus Couch MD PCP Reason for Visit * Auth/Cert Referred By Contact Referred To Contact Status Reason Specialty Diagnoses / Procedures [facility] [place] [address] [place] [address] Home Health Encounter Details Care Team Description Date Type Department Odell Casillas, Physical Therapist PT - HOME VISIT 07/25/[facility] [address] [place] [address] Social History Date Tobacco Use [...] Notes Intervention Associated Status Problem/Go al Patient's home was assessed for environmental hazards and he has full awareness when there is potential hazards and was instructed to continue to monitor for fall reduction. Instruct home safety Problem: Completed Description: Home Instruct Patient and Safety Caregiver as needed in home and fall safety precautions through the Fall Prevention Program. Patient performed supine exercises:SAQ,hip abduction,heel slides,bridging,SLR,quad,ham and gluteal sets.Standing exercises with [...] width,posture,turning and increase ERNESTINA for balance,patient amb x90' with SBA. Pt gait training Problem: Completed [...]
--- OUTSIDE RECORDS SUMMARY | 2020-03-24 13:47 | XMS REPORT | Encounter Summary ---
Author Author [facility] Organization [facility] Address Unknown Phone Unavailable Care Team Providers Care Ore Crusher Name Role Phone Claus Couch MD PCP Encounter Details Care Team Description Date Type Department Claus Couch MD [address] [place] [address] 07/21/2018 Abstract [facility] Prim[facility] y Care [place] [address] [place] [address] Social History Date Tobacco Use [...]
--- OUTSIDE RECORDS SUMMARY | 2020-03-24 13:47 | XMS REPORT | Encounter Summary ---
Author Author [facility] Organization [facility] Address Unknown Phone Unavailable Care Team Providers Care Broomcorn Sorter Name Role Phone Claus Couch MD PCP Reason for Visit * Auth/Cert Referred By Contact Referred To Contact Status Reason Specialty Diagnoses / Procedures [facility] [place] [address] [place] [address] Home Health Encounter Details Care Team Description Date Type Department Karishma Ge, Rehabilitation Counsellor OT - HOME VISIT 07/15/2018 Home Care Visit [facility] [address] [place] [address] Social History Date Tobacco Use [...] Signs Reading Time Taken Comments Vital Sign 130/70 07/15/2018 1:49 AM CDT Blood Pressure 82 07/15/2018 1:49 AM CDT Pulse - - Temperature - - Respiratory Rate 98% 07/15/2018 1:49 AM CDT Oxygen Saturation - - Inhaled [...] on arrival. Patient performed sit to stand from recliner to 2WW with MIN A and ambulated x approximately 50 feet to kitchen and back to bedroom with CGA. Patient transferred to EOB. Patient experienced bladder incontinence while ambulating and required a change of clothes. Patient unable to bend past 90 due to hip precautions. ARISTEO doffed patient's shoes and socks with MAX A. Patient performed sit to stand and pulled shorts down to knees and sat to kick them to the floor for ARISTEO to pull around feet. DIRECTOR INVESTMENT BANKING donned patiens brief and shorts to his knees and patient performed sit to stand to 2WW to finish donning brief and pants with CGA. Patient ambulated back to recliner in living room and transferred into it. Patient requested to be finished due to significant pain. Patient left seated on recliner with caregiver present. Patient demonstarted poor activity tolerance while ambulating, showing visible fatigue and pain. Patient is unable to doff/don LE clothing while standing without assistance due to increased LOB and hip precautions. Patient's pain interfered with all ambulation, sit to stands, and activites this visit-- patient reported he is out of pain medication and has to see his DrKarlos before they will prescribe more. OT IADL/ADL training Problem: Completed Description: OT Occupational Therapist to IADL/ADL visit for assessment, Training planning, teaching/training, and evaluation of the POC related to patient's ability to perform IADLs/ADLs due to weakness. documented in this encounter Home Health Visit - Actions and Narratives Patient reported he is out of pain medi cation and his sister has been trying to make an appointment for him yesterday and today with no alice k. Patient's caregiver reported patient has an appointment on 07/20/18 and will be leaving at 9:45am. documented in this encounter
--- OUTSIDE RECORDS SUMMARY | 2020-03-24 13:47 | XMS REPORT | Encounter Summary ---
Author Author [facility] Organization [facility] Address Unknown Phone Unavailable Care Team Providers Care Cushion Assembler Name Role Phone Claus Couch MD PCP Reason for Visit * Auth/Cert Referred By Contact Referred To Contact Status Reason Specialty Diagnoses / Procedures [facility] [place] [place] [address] Home Health Encounter Details Care Team Description Date Type Department Odell Casillas, Physical Therapist PT - HOME VISIT 07/18/2018 [facility] [address] [place] [address] Social History Date Tobacco Use [...] Home Program exercise Disciplines: program Physical Therapy Resolved on 07/18/2018 - 1 problem intervention scheduled/documented in this [...] must be performed close to his recliner and next to someone.Only perform those exercises as instructed by the Therapist.If instructions are not clearly understood,wait for clarification by therapist before attempting to perform. Instruct home safety Problem: Completed Description: Home Instruct Patient and Safety Caregiver as needed in home and fall safety precautions through the Fall Prevention Program. Patient performed supine exercises to RLE:SAQ,hip abduction,heel slides,quad,ham and gluteal sets.Standing exercises with walker support:Heel [...] related to physical therapy, and rehabilitation potential. Gait training with walker and VC to normalize gait pattern and correct sequencing to increase safety,weight shift during mobility with emphasis on stride length,step width,posture,turning and increase ERNESTINA for balance,patient amb x40' with SBA. Pt gait training Problem: Completed [...]
--- OUTSIDE RECORDS SUMMARY | 2020-03-24 13:47 | XMS REPORT | Encounter Summary ---
Author Author [facility] Organization [facility] Address Unknown Phone Unavailable Care Team Providers Care Director Of Operations Home Health Name Role Phone Claus oCuch MD PCP Reason for Visit * Auth/Cert Referred By Contact Referred To Contact Status Reason Specialty Diagnoses / Procedures [facility] [place] [address] [place] [address] Home Health Encounter Details Care Team Description Date Type Department Marissa Pitts RN SN - HOME VISIT 07/18/2018 Home Care Visit [facility] [address] [place] [address] Social History Date Tobacco Use [...] Vital Sign - - Blood Pressure 62 07/18/2018 1:15 PM CDT Pulse - - Temperature 16 07/18/2018 1:15 PM CDT Respiratory Rate 96% 07/18/2018 1:15 PM CDT Oxygen Saturation - - Inhaled [...] - SN - HOME VISIT Discipline - Long Term Status Goals Interventions Problem Descriptio Start Date n Active - 1 problem intervention scheduled/documented in this visit Depression Depression 07/11/2018 Disciplines: Long Term Active - 3 problem interventions scheduled/documented in this visit Home Safety Home 07/11/2018 Disciplines: safety Long Term Active - 1 problem intervention scheduled/documented in this visit Knowledge deficit on Infection 07/11/2018 preventing infection with prevention therapies . Disciplines: Long Term Active - 2 problem interventions scheduled/documented in this visit Nutritional concerns Nutritiona 07/11/2018 Disciplines: l intake Long Term concerns Active - 1 problem intervention scheduled/documented in this visit Physical Discomfort Alteration 07/11/2018 Disciplines: in comfort Long Term Active - 1 problem intervention scheduled/documented in this visit Pulse Oximetry Skilled 07/11/2018 Disciplines: assessment Long Term and monitoring of O2 saturation s. Active - 1 problem intervention scheduled/documented in this visit Skilled Observation and Skilled 07/11/2018 Assessment nursing Disciplines: observatio Long Term n and assessment . Active - 1 problem intervention scheduled/documented in this visit Teaching and Training Skilled 07/11/2018 Disciplines: nursing Long Term teaching and training. Variance Visit Notes Intervention [...] and regulatory requirements. Skilled assessment risk Problem: Scheduled for infection [...] practices, and current knowledge of intake requirements. Teaching provided regarding diet for wound healing-encouraged pt. to increase protein and vitamin C in diet with sources cited. Teach nutrition Problem: Completed Description: Nutritiona Assist [...] Health Visit - Actions and Narratives Called to pt. home as JENSEN reported pt. states his dressing has been wet. Notified surgeon's office and order recieved to remove Silverlon dressing to observe and report wound status. Dressing removed and noted a slightly firm area running below entire suture line which appears fluid filled. No redness or maceration of actual incisin line. Attempted to gently express fluid as wound cleansed with alcohol and noted one staple leaki ng a small amunt of clear fluid. Silver foam and Tegaderm dressing applied. documented in this encounter
--- OUTSIDE RECORDS SUMMARY | 2020-03-24 13:47 | XMS REPORT | Encounter Summary ---
Author Author [facility] Organization [facility] Address Unknown Phone Unavailable Care Team Providers Care Physician Gynecologist Name Role Phone Claus Couch MD PCP Reason for Visit * Auth/Cert Referred By Contact Referred To Contact Status Reason Specialty Diagnoses / Procedures [facility] [place] [address] [place] [address] Home Health Encounter Details Care Team Description Date Type Department Karishma Ge, Human Service Worker OT - HOME VISIT 07/22/2018 [facility] [address] [place] [address] Social History Date Tobacco Use [...] Signs Reading Time Taken Comments Vital Sign 140/70 07/22/2018 10:20 AM CDT Blood Pressure 83 07/22/2018 10:20 AM CDT Pulse - - Temperature - - Respiratory Rate 97% 07/22/2018 10:20 AM CDT Oxygen Saturation - - Inhaled [...] in lift chair on arrival. Patient performed sit to stand from chair to 2WW with SBA, ambulated to bathroom with CGA, performed x5 reps sit to stands from raised toilet with arm rests, and performed transfer in/out of shower with CGA/verbal cues using tub transfer bench. Patient ambulated to bedroom and transferred to EOB with SBA, performed bed mobility to supine, and performed 4x10 reps LE supine exercises. Patient performed bed mobility to EOB, performed sit to stand, ambulated x 70 feet with 2WW and CGA, and performed x5 reps sit to stands from living room chair. Patient left seated in chair with phone in reach and no requests. Patient demonstrated increased activity tolerance this date with decreased fatigue during ambulationg throughout home. Patient tolerated increased task demand with added shower transfers and LE exercises this visit. Patient continues to report high levels of pain in LLE and B knees, but ambulated stead maribel without visible sign of significant pain. Patient continues to demonstrate decreased balance, strength, endurance, and safety awareness throughout visit. OT IADL/ADL training Problem: Completed Description: OT Occupational Therapist to IADL/ADL visit for assessment, Training planning, teaching/training, and evaluation of the POC related to patient's ability to perform IADLs/ADLs due to weakness. documented in this encounter
--- OUTSIDE RECORDS SUMMARY | 2020-03-24 13:48 | XMS REPORT | Encounter Summary ---
Author Author [facility] Organization [facility] Address Unknown Phone Unavailable Care Team Providers Care Rice Drier Name Role Phone Claus Couch MD PCP Reason for Visit * Reason Comments Medication Refill Encounter Details Care Team Description Date Type Department Claus Couch MD [address] [place] [address] 06/13/2018 Refill [facility] Prim[facility] [place] [address] [place] [address] Social History Date Tobacco Use [...]
--- OUTSIDE RECORDS SUMMARY | 2020-03-24 13:48 | XMS REPORT | Encounter Summary ---
Author Author [facility] Organization [facility] Address Unknown Phone Unavailable Care Team Providers Care Undercover Cop Name Role Phone Claus Couch MD PCP Reason for Visit * Reason Comments Knee Pain Lt Knee Pain-Celestone Inj Encounter Details Care Team Description Date Type Department Jona Doran APRN [address] [place] [address] Primary osteoarthritis of left knee (Farhana sigrid Dx) 05/25/2018 Office Visit [facility] [place] [address] [place] [address] Social History Date Tobacco Use [...] as of this encounter Progress Notes * Jona Doran APRN - 05/25/2018 11:04 AM CDT After informed consent was provided, the patient was placed sitting upright on t he exam table. The anterior aspect of the left knee was prepped with Betadine a nd alcohol. A 22-gauge needle was inserted into the knee and 4 cc of 0.25 Cass ine and 2 cc/12 mg of Celestone. The needle was withdrawn and the puncture site sealed with a Band-Aid. The patient tolerated the procedure well. documented in this encounter Plan of Treatment Not on filedocumented as of this encounter Visit Diagnoses Diagnosis Primary osteoarthritis of left knee - P rimary Primary localized osteoarthrosis, lower leg documented in this encounter Additional Health Concerns Assessment Noted Time A Hypertension Plan of Care has been documented for jeremias krueger patient 02/12/2017 12:54 PM CDT A Depression follow-up plan has been documented for jeremias krueger patient 03/14/2018 11:52 AM CDT documented as of this encounter
--- OUTSIDE RECORDS SUMMARY | 2020-03-24 13:48 | XMS REPORT | Encounter Summary ---
Author Author [facility] Organization [facility] Address Unknown Phone Unavailable Care Team Providers Care Proof Technician Name Role Phone Claus Couch MD PCP Reason for Visit * Reason Comments E&M Of Chronic Disease(s) 3 months,labs Smoking Cessation needing something to help q uit smoking patches don't work Encounter Details Care Team Description Date Type Department Claus Couch MD [address] [place] [address] Seizure (Primary Dx); Stable angina; Essential hypertension; Mixed hyperlipidemia; Type 2 diabetes mellitus with diabetic neuropathy, without long-term current use of insulin 06/22/2018 Office Visit [facility] [address] [place] [address] Social History Date Tobacco Use [...] Signs Reading Time Taken Comments Vital Sign 118/72 06/22/2018 8:29 AM CDT Blood Pressure - - Pulse 36.6 C (97.8 F) 06/22/2018 8:29 AM CDT Temperature - - Respiratory Rate - - Oxygen Saturation - - Inhaled Oxygen Concentration 63 kg (139 lb) 06/22/2018 8:29 AM CDT Weight 167.6 cm (5' 6") 06/22/2018 8:29 AM CDT Height 22.44 06/22/2018 8:29 AM CDT Body Mass Index documented in this encounter Patient Instructions * Patient Instructions* Claus Couch MD - 06/22/2018 8:42 AM CDT Hospital Encounter on 06/22/18 (from the past 168 hour(s)) CBC WITH DIFFERENTIAL Collection Time: 06/22/18 7:38 AM Result Value Ref Range WBC 11.9 (H) 3.6 - 11.1 K/uL RBC 4.10 (L) 4.49 - 5.52 M/uL HEMOGLOBIN 11.1 (L) 13.3 - 16.5 g/dL HEMATOCRIT 33.8 (L) 40.7 - 48.9 % MCV 82.4 (L) 82.7 - 97.1 fL MCH 27.1 27.1 - 32.3 pg MCHC 32.8 31.3 - 34.9 g/dL RDW 14.4 11.5 - 14.7 % RDW-STDEV 43.4 37.2 - 47.6 fL PLATELETS 484 (H) 136 - 352 K/uL MPV 7.7 (L) 8.6 - 11.8 fL NEUTROPHILS 77 (H) 44 - 74 % LYMPHOCYTES 15 (L) 16 - 44 % MONOCYTES 8 4 - 11 % EOSINOPHILS 0 0 - 6 % BASOPHILS 0 0 - 1 % IMMATURE GRANULOCYTES 0 0 - 1 % NEUTROPHIL ABSOLUTE 9.14 (H) 1.54 - 7.18 K/uL LYMPHOCYTE ABSOLUTE 1.73 0.69 - 3.61 K/uL MONOCYTE ABSOLUTE 0.95 0.19 - 0.95 K/uL EOSINOPHIL ABSOLUTE 0.03 0.00 - 0.44 K/uL BASOPHILS ABSOLUTE 0.02 0.00 - 0.10 K/uL IMMATURE GRANULOCYTES ABSOLUTE 0.05 0.00 - 0.09 K/uL LIPID PANEL Collection Time: 06/22/18 7:38 AM Result Value Ref Range CHOLESTEROL 121 <200 mg/dL TRIGLYCERIDE 82 <150 mg/dL HDL 51 40 - 59 mg/dL LDL CALCULATED 54 <100 mg/dL NON-HDL CHOLESTEROL 70 <130 mg/dL Narrative TOTAL CHOLESTEROL mg/dL Desirable [...] Panels (NCEP/AMA) COMPREHENSIVE METABOLIC PANEL Collection Time: 06/22/18 7:38 AM Result Value Ref Range SODIUM 134 (L) 136 - 145 mmol/L POTASSIUM 4.4 3.5 - 5.1 mmol/L CHLORIDE 96 (L) 98 - 107 mmol/L CO2 25 22 - 29 mmol/L CALCIUM 9.4 8.8 - 10.2 mg/dL BUN 12 8 - 23 mg/dL CREATININE 0.66 (L) 0.67 - 1.17 mg/dL GLUCOSE 185 (H) 74 - 99 mg/dL TOTAL PROTEIN 7.1 6.6 - 8.7 g/dL ALBUMIN 3.7 3.5 - 5.2 g/dL BILIRUBIN TOTAL 0.2 <=1.2 mg/dL ALKALINE PHOSPHATASE 93 40 - 129 U/L AST 17 <=41 U/L ALT 10 10 - 50 U/L GFR >60 >=60 mL/min/1.73 sq meter GFR, >60 >=60 mL/min/1.73 sq meter ANION GAP 13 4 - 20 mmol/L HEMOGLOBIN A1C Collection Time: 06/22/18 7:38 AM Result Value Ref Range HEMOGLOBIN A1C 6.3 (H) 4.8 - 5.9 % EST. AVG GLUCOSE, A1C 134 mg/dL Narrative HGB A1C INTERPRETATION NORMAL: <5.7% PRE-DIABETES: 5.7 - 6.4% DIABETES: 6.5% OR GREATER *Note: Due to a large number of results and/or encounters for the requested time period, some results have not been displayed. A complete set of results can be found in Results Review. documented in this encounter Progress Notes * Claus Couch MD - 06/22/2018 8:04 AM CDT Oliverio Dalton is a 67 y.o. male comes in today for a [...] denies any other difficulties overall feels good . I have reviewed the patient's medical family and surgical history in detail and updated the computerized patient record. ROS neg except for the above mentioned OBJECTIVE: Physical Exam: BP 118/72 | Temp 97.8 F (36.6 C) (Tympanic) | Ht 5' 6" (1.676 m) | Wt 63 kg (139 lb) | BMI 22.44 kg/m General appearance: alert, in no distress [...] rios or thighs, normal strength, normal tone Lab Results Component Value Date/Time SODIUM 134 (L) 06/22/2018 07:38 AM POTASSIUM 4.4 06/22/2018 07:38 AM CHLORIDE 96 (L) 06/22/2018 07:38 AM CO2 25 06/22/2018 07:38 AM CALCIUM 9.4 06/22/2018 07:38 AM BUN 12 06/22/2018 07:38 AM CREATININE 0.66 (L) 06/22/2018 07:38 AM GLUCOSE 185 (H) 06/22/2018 07:38 AM TOTAL PROTEIN 7.1 06/22/2018 07:38 AM ALBUMIN 3.7 06/22/2018 07:38 AM BILIRUBIN TOTAL 0.2 06/22/2018 07:38 AM ALKALINE PHOSPHATASE 93 06/22/2018 07:38 AM AST 17 06/22/2018 07:38 AM ALT 10 06/22/2018 07:38 AM ANION GAP 13 06/22/2018 07:38 AM BUN/CREAT RATIO 19.8 12/02/2012 09:43 PM CHOLESTEROL 121 06/22/2018 07:38 AM HDL 51 06/22/2018 07:38 AM LDL CALCULATED 54 06/22/2018 07:38 AM LDL CHOLESTEROL, DIRECT 125 12/10/2011 09:05 AM TRIGLYCERIDE 82 06/22/2018 07:38 AM HEMOGLOBIN A1C 6.3 (H) 06/22/2018 07:38 AM TSH 1.69 10/01/2006 05:40 AM ASSESSMENT: Encounter Diagnoses Name Primary? Seizure Yes Stable angina Essential hypertension Mixed hyperlipidemia Type 2 diabetes mellitus with diabetic neuropathy, without long-term current use of insulin PLAN: Orders Placed This Encounter CBC WITH DIFFERENTIAL (3 MONTHS X 1) LIPID PANEL (3 MONTHS X 1) CMP (3 MONTHS X 1) HEMOGLOBIN A1C (3 MONTHS X 1) MICROALBUMIN/CREATININE RATIO, RANDOM UR (3 MONTHS X 1) follow up in 3 months current treatment plan is effective, no change in therapy reviewed medications and side effects in detail test results reviewed with patient and repeat labs ordered prior to next appoint ment reviewed diet, exercise and weight control cardiovascular risk and specific lipid/LDL goals reviewed. documented in this encounter Plan of Treatment Order Schedule Name Type Priority Associated Diag noses Expected: 09/20/2018, Expires: 9 MICROALBUMIN/CREATININE Lab Stat Type 2 diabetes mellitus RATIO, RANDOM UR with diabetic neuropathy, without long-term current use of insulin documented as of this encounter Results * HEMOGLOBIN A1C (09/23/2018 7:41 AM GETTERER) HEMOGLOBIN A1C 5.7 4.8 - 5.9 % [facility] [place] EST. AVG 117 mg/dL [facility] GLUCOSE, A1C LABORATORY SERVICES - [place] Specimen Blood Narrative Performed At B A1C INTERPRETATION [facility] NORMAL: <5.7% SERVICES - [place] PRE-DIABETES: 5.7 - 6.4% [place] DIABETES: 6.5% OR GREATER Performing Organization Address City/State/Zipcode Ph one Number [facility] CLIA# [id number] [place] [address] [place] [address] [place] [address] * COMPREHENSIVE METABOLIC PANEL (09/23/2018 7:41 AM GETTERER) [facility] SODIUM 138 136 - 145 mmol/L [facility] [place] POTASSIUM 4.2 3.5 - 5.1 mmol/L [facility] [place] CHLORIDE 101 98 - 107 mmol/L [facility] [place] CO2 23 22 - 29 mmol/L [facility] [place] CALCIUM 9.2 8.8 - 10.2 mg/dL [facility] - [facility] [place] BUN 14 8 - 23 mg/dL [facility] LABORAT[facility] SERVICES - [facility] [place] CREATININE 0.53 (L) 0.67 - 1.17 mg/dL [facility] [place] GLUCOSE 165 (H) 74 - 99 mg/dL [facility] - [facility] [place] TOTAL PROTEIN 6.9 6.6 - 8.7 g/dL [facility] [place] ALBUMIN 3.7 3.5 - 5.2 g/dL [facility] [place] BILIRUBIN TOTAL <0.1 <=1.2 mg/dL [facility] [place] ALKALINE 87 40 - 129 U/L [facility] PHOSPHATASE [facility] [place] AST 16 <=41 U/L [facility] - [facility] [place] ALT 12 10 - 50 U/L [facility] [place] GFR >60 >=60 mL/min/1.73 sq [facility] Comment: meter LABORATORY eGFR has not been validated [facility] for use in the elderly (> [...] result. GFR, >60 >=60 mL/min/1.73 sq [facility] URUG[facility]AYAN meter [facility]ATORY SERVICES - [place] ANION GAP 14 4 - 20 mmol/L [facility] [place] Specimen Blood Performing Organization Address City/State/Zipcode Ph one Number [facility] CLIA# [id number] [place] [address] - [place] [address] * LIPID PANEL (09/23/2018 7:41 AM GETTERER) CHOLESTEROL 122 <200 mg/dL [facility] [place] TRIGLYCERIDE 51 <150 mg/dL [facility] HDL 58 40 - 59 mg/dL [facility] - [place] LDL CALCULATED 54 <100 mg/dL [facility] - [place] NON-HDL 64 <130 mg/dL [facility] CHOLESTEROL [facility]ORY [facility] - [place] Specimen Blood Narrative Performed At TOTAL CHOLESTEROL mg/dL [facility] Desirable <200 SERVICES - [facility] [...] for Lipid Panels (NCEP/AMA) Performing Organization Address City/State/[facility] Ph one Number [facility] CLIA# [id number] [place] [address] - [place] [address] * CBC WITH DIFFERENTIAL (09/23/2018 7:41 AM GETTERER) WBC 11.2 (H) 3.6 - 11.1 K/uL [facility] [place] RBC 4.09 (L) 4.49 - 5.52 M/uL [facility] [place] HEMOGLOBIN 10.8 (L) 13.3 - 16.5 g/dL [facility] - [place] HEMATOCRIT 33.2 (L) 40.7 - 48.9 % [facility] [place] MCV 81.2 (L) 82.7 - 97.1 fL [facility] [place] MCH 26.4 (L) 27.1 - 32.3 pg [facility] [place] MCHC 32.5 31.3 - 34.9 g/dL [facility] [place] RDW 14.6 11.5 - 14.7 % [facility] [place] RDW-STDEV 42.8 37.2 - 47.6 fL [facility] [place] PLATELETS 402 (H) 136 - 352 K/uL [facility] [place] MPV 7.9 (L) 8.6 - [...] Performing Organization Address City/State/Zipcode Ph one Number [facility] CLIA# [id number] [place] [address] [place] [address] [place], [place] [address]VD documented in this encounter Visit Diagnoses Diagnosis Seizure - Primary Other convulsions Stable angina Other and unspecified angina pectoris Essential hypertension Unspecified essential hypertension Mixed hyperlipidemia [...]
--- OUTSIDE RECORDS SUMMARY | 2020-03-24 13:48 | XMS REPORT | Encounter Summary ---
Author Author [facility] Organization [facility] Address Unknown Phone Unavailable Care Team Providers Care Dough Catcher Name Role Phone Claus Couch MD PCP Reason for Visit * Reason Comments Medication Refill Encounter Details Care Team Description Date Type Department Claus Couch MD [address] [place] [address] 07/04/2018 Refill [facility] [place] [address] [place] [address] Social History Date Tobacco Use [...]
--- OUTSIDE RECORDS SUMMARY | 2020-03-24 13:48 | XMS REPORT | Encounter Summary ---
Author Author [facility] Organization [facility] Address Unknown Phone Unavailable Care Team Providers Care Home Health Care Social Worker Name Role Phone Claus Couch MD PCP Reason for Visit * Auth/Cert Referred By Contact Referred To Contact Status Reason Specialty Diagnoses / Procedures [facility] [place] [address] [place] [address] Home Health Encounter Details Care Team Description Date Type Department Sofia Bass RN CASE COMMUNICATION 07/11/2018 [facility] [address] [place] [address] Social History Date Tobacco Use [...]
--- OUTSIDE RECORDS SUMMARY | 2020-03-24 13:48 | XMS REPORT | Encounter Summary ---
Author Author [facility] Organization [facility] Address Unknown Phone Unavailable Care Team Providers Care Cat Breeder Name Role Phone Claus Couch MD PCP Encounter Details Care Team Description Date Type Department Claus Couch MD [address] [place] [address] 07/02/2018 Abstract [facility] Prim[facility] [place] [address] [place] [address] Social History Date Tobacco Use [...]
--- OUTSIDE RECORDS SUMMARY | 2020-03-24 13:48 | XMS REPORT | Encounter Summary ---
Author Author [facility] Organization [facility] Address Unknown Phone Unavailable Care Team Providers Care Chief Clerk Shelter Name Role Phone Claus Couch MD PCP Encounter Details Care Team Description Date Type Department Claus Couch MD [address] [place] [address] 06/16/2018 Abstract [facility] Prim[facility] Care [place] [address] [place] [address] Social History Date Tobacco Use [...]
--- OUTSIDE RECORDS SUMMARY | 2020-03-24 13:48 | XMS REPORT | Encounter Summary ---
Author Author [facility] Address Unknown Phone Unavailable Care Team Providers Care Parts Control Clerk Name Role Phone Claus Couch MD PCP Reason for Visit * Auth/Cert Referred By Contact Referred To Contact Status Reason Specialty Diagnoses / Procedures [facility] [place] [address] [place] [address] Home Health Encounter Details Care Team Description Date Type Department Sofia Bass RN SN - [facility] START OF CARE 07/11/2018 [facility] [address] [place] [address] Social History Date Tobacco Use [...] Signs Reading Time Taken Comments Vital Sign 138/62 07/11/2018 2:20 PM CDT Blood Pressure 72 07/11/2018 2:20 PM CDT Pulse 36.7 C (98 F) 07/11/2018 2:20 PM CDT Temperature - - Respiratory Rate 95% 07/11/2018 2:20 PM CDT Oxygen Saturation - - Inhaled [...] Plan Visit Type - SN - OASIS START OF CARE Discipline - Alf Status Goals Interventions Problem Descriptio Start Date n Active - 1 problem intervention scheduled/documented in this visit Depression Depression 07/11/2018 Disciplines: Alf Active - 3 problem interventions scheduled/documented in this visit Home Safety Home 07/11/2018 Disciplines: safety Alf Active - 1 problem intervention scheduled/documented in this visit Knowledge deficit on Infection 07/11/2018 preventing infection with prevention therapies . Disciplines: Alf Active - 1 problem intervention scheduled/documented in this visit Medications Management 07/11/2018 Disciplines: of home Alf medication s Active - 1 problem intervention scheduled/documented in this visit Nutritional concerns Nutritiona 07/11/2018 Disciplines: l intake Alf concerns Active - 1 problem intervention scheduled/documented in this visit Physical Discomfort Alteration 07/11/2018 Disciplines: in comfort Alf Active - 1 problem intervention scheduled/documented in this visit Pulse Oximetry Skilled 07/11/2018 Disciplines: assessment Alf and monitoring of O2 saturation s. Active - 1 problem intervention scheduled/documented in this visit Skilled Observation and Skilled 07/11/2018 Assessment nursing Disciplines: observatio Alf n and assessment . Active - 1 problem intervention scheduled/documented in this visit Teaching and Training Skilled 07/11/2018 Disciplines: nursing Alf teaching and training. Variance Visit Notes Intervention [...] and when to notify HH and/or physician. Medications reconciled with hospital discharge list and pt home medications completed. No discrepancies found. Caregiver able to administer all medications without complications. Caregiver able to reorder medications without complications. High Risk Medication teaching completed on alprazolam, oxycodone with patient . All medications check for expiration, no concerns noted. Severe Medication Interactions, chart audit completed and severe medication interactions cleared by physician. Skilled assessment Problem: Completed medications Medication [...] Home Health Visit - Actions and Narratives plavix 75mg am ramipril 5mg am pioglitazone 30 am thera multivitamin am fenofibrate 145 supper simvastatin 40 evening tamsulosin 0.4 supper ranitadine 150 hs olanzapine 2.5 hs temazepam 7.5 hs trazadone 50 hs ezetimibe 10 hs phenytoin 100 bid lorazepam1 bid magnesium 250 q 12 bethanecol 254 times daily oxycodone 20mg er take 1 q 12hrs senexon-s tabn1 tab daily ferrous sulfate 1 gra stool softner 100mg documented in this encounter
--- OUTSIDE RECORDS SUMMARY | 2020-03-24 13:48 | XMS REPORT | Encounter Summary ---
Author Author [facility] Organization [facility] Address Unknown Phone Unavailable Care Team Providers Care Configuration Management Analyst Name Role Phone Claus Couch MD PCP Encounter Details Care Team Description Date Type Department Claus Couch MD [address] [place] [address] [place], Outpt Lab 06/22/2018 [facility] Outpatient Encounter Laboratory [address] [address] Social History Date Tobacco Use [...] Package 0 (ACCU-CHEK ACTIVE TEST) pm prn [facility] 12/29/2007 BETIMOL 0.5 % OP Drop Administer 1 0 Drop in both eyes 2 times daily. 06/13/2018 07/12/2018 ondansetron (ZOFRAN ODT) DISSOLVE 1 30 Tablet 0 4 mg Tablet, Rapid TABLET ON Dissolve TONGUE EVERY 8 HOURS NEEDED FOR NAUSEA/EMESIS 06/08/2018 07/04/2018 oxyCODONE (OxyCONTIN) 20 Take 1 Tablet 60 Tablet 0 mg Controlled Release 12 (20 mg) by hour crush resistant mouth every tablet 12 hours. 04/29/2018 11/03/2018 simvastatin (ZOCOR) 40 mg TAKE [...] Associated Diag nosis CBC WITH DIFFERENTIAL Stat 06/22/2018 Type 2 d iabetes mellitus 7:38 AM CDT with diabetic neuropathy, without long-term current use of insulin HEMOGLOBIN A1C Stat 06/22/2018 Type 2 diabetes mellitus 7:38 AM CDT with diabetic neuropathy, without long-term current use of insulin LIPID PANEL Stat 06/22/2018 Type 2 diabetes mellitus 7:38 AM CDT with diabetic neuropathy, without long-term current use of insulin COMPREHENSIVE METABOLIC Stat 06/22/2018 Type 2 diabetes mellitus PANEL 7:38 AM CDT with diabetic neuro wesley, without long-term current use of insulin documented in this encounter Results * HEMOGLOBIN A1C (06/22/2018 7:38 AM CDT) HEMOGLOBIN A1C 6.3 (H) 4.8 - 5.9 % [facility] [place] EST. AVG 134 mg/dL [facility] GLUCOSE, A1C LAB[facility]ATORY SERVICES - [place] Specimen Blood Narrative Performed At HGB A1C INTERPRETATION [facility] LAB[facility]AT[facility] NORMAL: <5.7% SERVICES - [place] PRE-DIABETES: 5.7 - 6.4% [place] DIABETES: 6.5% OR GREATER Performing Organization Address City/State/Zipcode Ph one Number [facility] CLIA# [id number] [place] [address] [place] [address] [facility] * COMPREHENSIVE METABOLIC PANEL (06/22/2018 7:38 AM CDT) SODIUM 134 (L) 136 - 145 mmol/L [facility] [place] POTASSIUM 4.4 3.5 - 5.1 mmol/L [facility] [place] CHLORIDE 96 (L) 98 - 107 mmol/L [facility] [place] CO2 25 22 - 29 mmol/L [facility] [place] CALCIUM 9.4 8.8 - 10.2 mg/dL [facility] [place] BUN 12 8 - 23 mg/dL [facility]ATORY SERVICES - [facility] [place] CREATININE 0.66 (L) 0.67 - 1.17 mg/dL [facility] [place] GLUCOSE 185 (H) 74 - 99 mg/dL [facility] [place] TOTAL PROTEIN 7.1 6.6 - 8.7 g/dL [facility] [place] ALBUMIN 3.7 3.5 - 5.2 g/dL [facility] [place] BILIRUBIN TOTAL 0.2 <=1.2 mg/dL [facility] [place] ALKALINE 93 40 - 129 U/L [facility] PHOSPHATASE [facility]ORY SERVICES - [place] AST 17 <=41 U/L [facility] [place] ALT 10 10 - 50 U/L [facility] [place] GFR >60 >=60 mL/min/1.73 sq [facility] Comment: meter LABORATORY eGFR has not been validated [facility] for use in the elderly (> 70 [...] result. GFR, >60 >=60 mL/min/1.73 sq [facility] [place]AN meter [facility]ATORY SERVICES - [place] ANION GAP 13 4 - 20 mmol/L [facility] - [place] Specimen Blood Performing Organization Address City/State/[facility] Ph one Number [facility] CLIA# [id number] [place] [address] [place] [address] [facility] * LIPID PANEL (06/22/2018 7:38 AM CDT) CHOLESTEROL 121 <200 mg/dL [facility] [place] TRIGLYCERIDE 82 <150 mg/dL [facility] [place] HDL 51 40 - 59 mg/dL [facility] [place] LDL CALCULATED 54 <100 mg/dL [facility] [place] NON-HDL 70 <130 mg/dL [facility] CHOLESTEROL LAB[facility]ATORY SERVICES - [place] Specimen Blood Narrative Performed At TOTAL CHOLESTEROL mg/dL [facility] Desirable <200 SERVICES - [place] Borderline high 200-239 [place] High >=240 TRIGLYCERIDES [...] for Lipid Panels (NCEP/AMA) Performing Organization Address City/State/[facility] Ph one Number [facility] CLIA# [id number] [place] [address] - [place] [address] * CBC WITH DIFFERENTIAL (06/22/2018 7:38 AM CDT) WBC 11.9 (H) 3.6 - 11.1 K/uL [facility] [place] RBC 4.10 (L) 4.49 - 5.52 M/uL [facility] [place] HEMOGLOBIN 11.1 (L) 13.3 - 16.5 g/dL [facility] [place] HEMATOCRIT 33.8 (L) 40.7 - 48.9 % [facility] [place] MCV 82.4 (L) 82.7 - 97.1 fL [facility] [place] MCH 27.1 27.1 - 32.3 pg [facility] [place] MCHC 32.8 31.3 - 34.9 g/dL [facility] [place] RDW 14.4 11.5 - 14.7 % [facility] [place] RDW-STDEV 43.4 37.2 - 47.6 fL [facility] [place] PLATELETS 484 (H) 136 - 352 K/uL [facility] [place] MPV 7.7 (L) 8.6 - 11.8 fL [facility] [place] NEUTROPHILS 77 (H) 44 - 74 % [facility] [place] LYMPHOCYTES 15 (L) 16 - 44 % [facility] [place] MONOCYTES 8 4 - 11 % [facility] [place] EOSINOPHILS 0 0 - 6 % [facility] [place] BASOPHILS 0 0 - 1 % [facility] [place] IMMATURE 0 0 - 1 % [facility] GRANULOCYTES [facility] - [place] NEUTROPHIL 9.14 (H) 1.54 - 7.18 K/uL [facility] ABSOLUTE LABORATORY SERVICES - [place] LYMPHOCYTE 1.73 0.69 - 3.61 K/uL [facility] ABSOLUTE [facility] - [place] MONOCYTE 0.95 0.19 - 0.95 K/uL [facility] ABSOLUTE [facility] - [place] EOSINOPHIL 0.03 0.00 - 0.44 K/uL [facility] ABSOLUTE [facility] - [place] BASOPHILS 0.02 0.00 - 0.10 K/uL [facility] ABSOLUTE LABORATORY SERVICES - [place] IMMATURE 0.05 0.00 - 0.09 K/uL [facility] GRANULOCYTES LABORATORY ABSOLUTE SERVICES - [place] Specimen Blood Performing Organization Address City/State/Zipcode Ph one Number [facility] CLIA# [id number] [place] [address] [place] [address] [place] [address] BLVD documented in this encounter Visit Diagnoses [...]
--- OUTSIDE RECORDS SUMMARY | 2020-03-24 13:48 | XMS REPORT | Encounter Summary ---
Author Author [facility] Organization [facility] Address Unknown Phone Unavailable Care Team Providers Care Dry Roaster Name Role Phone Claus Couch MD PCP Reason for Visit * Reason Comments Medication Refill Encounter Details Care Team Description Date Type Department Claus Couch MD [address] [place] [address] 06/08/2018 Refill [facility] Primar y Care [place] [address] [place] [address] Social History Date Tobacco Use [...]
--- OUTSIDE RECORDS SUMMARY | 2020-03-24 13:48 | XMS REPORT | Encounter Summary ---
Author Author [facility] Organization [facility] Address Unknown Phone Unavailable Care Team Providers Care Clerk Guide Name Role Phone Claus Couch MD PCP Reason for Visit * Reason Comments Joint Or Tendon Injection Celestone Inj Knee Pain RIght knee Encounter Details Care Team Description Date Type Department Jona Doran, JONNATHAN [address] [place] [address] Primary osteoarthritis of right knee (Pr imary Dx) 06/08/2018 Office Visit [facility] [place] [address] [place] [address] Social History Date Tobacco Use [...] Progress Notes * Jona Doran APRN - 06/08/2018 10:11 AM CDT After informed consent was provided, the patient was placed sitting upright on t he exam table. The anterior aspect of the right knee was prepped with Betadine and alcohol. A 22-gauge needle was inserted into the knee and 4 cc of 0.25 Zeke dejon and 2 cc/12 mg of Celestone. The needle was withdrawn and the puncture sit e sealed with a Band-Aid. The patient tolerated the procedure well. documented in this encounter Plan of Treatment Not on filedocumented as of this encounter Visit Diagnoses Diagnosis Primary osteoarthritis of right knee - Primary Primary localized osteoarthrosis, lower leg documented in this encounter Additional Health Concerns Assessment Noted Time A Hypertension Plan of Care has been documented for jeremias krueger patient 02/12/2017 12:54 PM CDT A Depression follow-up plan has been documented for jeremias krueger patient 03/14/2018 11:52 AM CDT documented as of this encounter
--- OUTSIDE RECORDS SUMMARY | 2020-03-24 13:48 | XMS REPORT | Encounter Summary ---
Author Author [facility] Organization [facility] Address Unknown Phone Unavailable Care Team Providers Care Wash Barrel Leader Name Role Phone Claus Couch MD PCP Encounter Details Care Team Description Date Type Department Neyda Redmond MD [address] [place] [id number] 05/26/2018 Abstract [facility] Primar y Care [place] [address] [place] [address] Social History Date Tobacco Use [...]
--- OUTSIDE RECORDS SUMMARY | 2020-03-24 13:48 | XMS REPORT | Encounter Summary ---
Author Author [facility] Organization [facility] Address Unknown Phone Unavailable Care Team Providers Care [employer] Processor Name Role Phone Claus Couch MD PCP Reason for Visit * Reason Comments Fall Pt fell and his right shou lder, hip, and knee are sore. Reports he was up going to the restroom while Home Hea lth was at this home and he tripped and fell. * Auth/Cert Referred By Contact Referred To Contact Status Reason Specialty Diagnoses / Procedures [facility] Emergency [address] [place] [address] Emergency Medicine Encounter Details Care Team Description Date Type Department Deirdre Go MD [address] [place] [address] Closed fracture of right hip, initial en counter (Primary Dx); Acute SD, subendocardial; Fall from standing, initial encounter; Hyponatremia; Anemia, chronic disease 07/04/2018 Emergency [facility] Emergency Department [address] [address] Social History Date Tobacco Use [...] Signs Reading Time Taken Comments Vital Sign 113/63 07/04/2018 3:13 PM CDT Blood Pressure 88 07/04/2018 2:45 PM CDT Pulse 36.4 C (97.5 F) 07/04/2018 3:13 PM CDT Temperature 17 07/04/2018 3:13 PM CDT Respiratory Rate 100% 07/04/2018 3:13 PM CDT Oxygen Saturation - - Inhaled Oxygen Concentration 61.7 kg (136 lb) 07/04/2018 11:42 AM CDT Weight - - Height 21.95 06/22/2018 8:29 AM CDT Body Mass Index documented in this encounter Medications at Time [...] Drop in both eyes 2 times daily. 07/04/2018 07/25/2018 oxyCODONE (OxyCONTIN) 20 TAKE 1 TABLET 20 Tablet 0 mg Controlled Release 12 BY MOUTH hour crush resistant EVERY 12 tablet HOURS 06/13/2018 07/12/2018 ondansetron (ZOFRAN ODT) DISSOLVE 1 [...] AFTER SUPPER. documented as of this encounter Procedure Notes * David Ferrer MD - 07/05/2018 10:08 AM CDT Associated Order(s): EKG 12-LEAD [address] [place] [address] Patient Name: OLIVERIO DALTON CSN: [id number] : 1950 Provider: David Bernard M.D. Admitted: 07/04/2018 ELECTROCARDIOGRAM DATE OF SERVICE: 07/04/2018 07/04/2018 at 1411. The rhythm is regular, sinus in origin with a rate of 84 beat s per minute. CT interval is prolonged. Limb leads show low voltage. T waves are flattened across the lateral limb and chest leads. Minimal R waves are seen in V2 and V3. Compared with previous tracing dated May 22 2018, there are no jolie or differences. CT interval is longer on the current tracing. DIAGNOSIS: 1) Sinu s rhythm, rate 84 beats per minute. 2) 1st degree AV block. 3) Low voltage limb leads. 4) Slow R wave progression, septal chest leads, possibly due to lead plac ement. 5) Nonspecific T wave flattening. Dictated by: David Bernard M.D./MEDQ D: [id number] V: [id number] cc: Destiny Guillen documented in this encounter ED Notes * Trinh Hinojosa RN - 07/04/2018 3:24 PM CDT [facility] and report given by Dr. Go to flight crew. * Aly Nance RN - 07/04/2018 2:34 PM CDT [facility] has been contacted a stand by helicopter. [facility] being pl aced on stand by. ER will call back as soon as has an accepting hospital. * Deirdre Go MD - 07/04/2018 11:37 AM CDT HISTORY OF PRESENT ILLNESS Oliverio Dalton, a 67 y.o. male presents to the ED with a Chief Complaint of Fa ll Subjective The pt receives home health due to his numerous issues. He had his home health n zay present this am, he had taken all his extensive meds which are sedating, an d when going to the bathroom had a witnessed fall as he tripped over the rug. He landed on his rt hip and the nurse called EMS. No head injury nor neck pain. In itially he had some rt shoulder discomfort, but that resolved at the time of pre sentation. He was sign somnolent due to his numerous medications, and has come a round and been awnery since. His sister reports he is in his normal mental basel ine health. The pt complains only of rt hip pain, no chest pain or SOZ. REVIEW OF SYSTEMS Review of Systems Constitutional: Negative for activity change, appetite change, chills, diaphores is, fatigue and fever. HENT: Negative. Eyes: Negative. Respiratory: Negative. Cardiovascular: Negative. Gastrointestinal: Negative. Endocrine: Negative. Genitourinary: Negative. Musculoskeletal: Positive for arthralgias and gait problem. Skin: Negative. Neurological: Positive for weakness. Negative for dizziness, seizures, syncope, numbness and headaches. Hematological: Negative. Psychiatric/Behavioral: Negative. PAST [...] Closed fractu re of right hip; Acute SD, subendocardial; Fall from standing; and Anemia, chron [...] Encounter Objective PHYSICAL EXAM INITIAL VS BP: 97/52 (07/04/18 1142), Heart Rate: 78 bpm (07/04/18 1142), Resp: 18 ( 8 1142), Temp: 97.8 F (36.6 C) (07/04/18 1142), Temp src: Temporal (07/04/18 1142), SpO2: 97 % (07/04/18 1142), Height: (not recorded), Weight: 61.7 kg (136 lb) (07/04/18 1142), BMI (Calculated): (not recorded) No LMP for male patient. Physical Exam Constitutional: He appears well-developed and well-nourished. No distress. Somewhat dirty and unbathed HENT: Head: Normocephalic and atraumatic. Right Ear: External ear normal. Left Ear: External ear normal. Slightly dry oromucosa Eyes: Pupils are equal, round, and reactive to light. EOM are normal. Neck: Normal range of motion. Neck supple. No JVD present. Cardiovascular: Normal rate, regular rhythm and intact distal pulses. Murmur heard. Pulmonary/Chest: Effort normal and breath sounds normal. Abdominal: Soft. Bowel sounds are normal. There is no tenderness. Musculoskeletal: He exhibits tenderness. He exhibits no edema or deformity. To the rt pelvis with pressure and palpation, as well as the rt superior hip. Li mited exam with rt internal and external hip rotation. Lymphadenopathy: He has no cervical adenopathy. Neurological: He is alert. Baseline per sister Skin: Skin is warm. He is not diaphoretic. Psychiatric: He has a normal mood and affect. Nursing note and vitals reviewed. DIAGNOSTICS LAB: CBC WITH DIFFERENTIAL - Abnormal Result Value WBC 12.2 (*) RBC 3.91 (*) HEMOGLOBIN 10.8 (*) HEMATOCRIT 31.6 (*) MCV 80.8 (*) MCH 27.6 MCHC 34.2 RDW 13.9 RDW-STDEV 41.0 PLATELETS 467 (*) MPV 7.8 (*) NEUTROPHILS 80 (*) LYMPHOCYTES 12 (*) MONOCYTES 8 EOSINOPHILS 0 BASOPHILS 0 IMMATURE GRANULOCYTES 1 NEUTROPHIL ABSOLUTE 9.74 (*) LYMPHOCYTE ABSOLUTE 1.41 MONOCYTE ABSOLUTE 0.96 (*) EOSINOPHIL ABSOLUTE 0.02 BASOPHILS ABSOLUTE 0.03 IMMATURE GRANULOCYTES ABSOLUTE 0.07 PROTIME-INR - Abnormal PROTIME 12.6 (*) INR 1.2 (*) PTT - Abnormal PTT 37.9 (*) COMPREHENSIVE METABOLIC PANEL - Abnormal SODIUM 125 (*) POTASSIUM 4.1 CHLORIDE 89 (*) CO2 24 CALCIUM 8.9 BUN 13 CREATININE 0.65 (*) GLUCOSE 170 (*) TOTAL PROTEIN 6.5 (*) ALBUMIN 3.4 (*) BILIRUBIN TOTAL 0.3 ALKALINE PHOSPHATASE 90 AST 19 ALT 13 GFR >60 GFR, >60 ANION GAP 12 TROPONIN BASELINE, 5TH GEN - Abnormal TROPONIN T, BASELINE 5TH GEN 43 (*) URINALYSIS WITH REFLEX MICROSCOPIC RADIOLOGY: XR CHEST PA OR AP [address] HIP WO CONTRAST RIGHT XR HIP 2 OR 3 VIEWS RT XR CHEST PA OR AP 1 VW Radiologist Impression Impression: 1. Linear atelectasis right midlung. CT HIP WO CONTRAST RIGHT Radiologist Impression IMPRESSION: Cortical irregularity along the superior margin of the junction of the right femoral head and neck. Nondisplaced fracture cannot be excluded. Right hip joint effusion, potentially representing hemarthrosis XR HIP 2 OR 3 VIEWS RT Radiologist Impression IMPRESSION: Mild cortical irregularity at the base of the lateral right femoral head, given history of fall, this may represent a nondisplaced subcapital fracture EKG: PROCEDURES Procedures MEDICAL DECISION MAKING AND PLAN OF CARE ED Course as of Jul 04 1454 Mon Jul 04, [address] Go, Natasha Chao ER physician, no change in care rec and he gladly accepted the pt to the ER for evaluation for admission. He is going t o the ER first due to his fall and protocol. [KS] 1453 EKG was NSR with 1st AV block and rate 84. Poor anteroseptal R wave progres moira with nonspecific flat T waves [KS] ED Course User Index [KS] Deirdre Go MD [facility] Summary Statement: Pt has no chest pain. He had taken his plavix and isosorbide dinitrate this am. Lab and EKG wsa done pre operatively for the hip fx, and the troponin was noted incidentally. He was given MS for hip pain and ASA and O2. I have reviewed current: labs, ECG and imaging I have reviewed nursing notes related to past medical history, social history, a nd review of systems and agree, unless otherwise noted. Medications Administered During the ED Stay from 07/04/2018 1137 to 07/04/2018 1 454 Date/Time Order Dose Route Action 07/04/2018 1418 ASPIRIN 81 MG CHEWABLE TABLET (CABINET OVERRIDE) 324 mg Given 07/04/2018 1444 morphine 4 mg/mL injection 2 mg 2 mg IV Push 07/04/2018 1445 sodium chloride 0.9% infusion IV New Bag . New Prescriptions for this Encounter LAST VS BP: 118/55 (07/04/181428), Heart Rate: 85 bpm (07/04/181428), Resp: 17 (1428), Temp: 98 F (36.7 C) (07/04/181428), Temp src: Temporal (07/04/181428), SpO2: 95 % (07/04/18 1429) CLINICAL IMPRESSION Final diagnoses: [S72.001A] Closed fracture of right hip, initial encounter (Primary) [I21.4] Acute SD, subendocardial [W19.XXXA] Fall from standing, initial encounter [E87.1] Hyponatremia [D63.8] Anemia, chronic disease DISPOSITION, EDUCATION AND MEDICATION RECONCILIATION Medications reconciled. See after visit summary for patient education on discha rged patients. ED Disposition ED Disposition Condition User Date/Time Comment Transfer Serious Deirdre Go MD Mon Jul 04, 2018 2:52 PM ATTESTATION STATEMENTS documented in this encounter Plan of Treatment Not on filedocumented as of this encounter Procedures Comments Procedure Name Priority Date/Time Associated Diag nosis EKG 12-LEAD Stat 07/05/2018 1:56 PM CDT OXYGEN, NASAL CANNULA Stat 07/04/2018 2:49 PM CDT XR CHEST PA OR AP 1 VW Stat 07/04/2018 1:38 PM CDT TROPONIN BASELINE, 5TH Stat 07/04/2018 GEN 1:29 PM CDT CBC WITH DIFFERENTIAL Stat 07/04/2018 1:29 PM CDT PTT Stat 07/04/2018 1:29 PM CDT PROTIME-INR Stat 07/04/2018 1:29 PM CDT COMPREHENSIVE METABOLIC Stat 07/04/2018 PANEL 1:[address] HIP WO CONTRAST RIGHT Stat 07/04/2018 12:49 PM CDT XR HIP 2 OR 3 VIEWS RT Stat 07/04/2018 12:09 PM CDT documented in this encounter Results * EKG 12-LEAD (07/05/2018 1:56 PM CDT) Narrative Performed At This result has an attachment that is n ot available. Procedure Note David Bernard MD - 07/05/2018 10:08 AM CDT [facility] [place] [address] [facility]. [place] [address] Patient Name: OLIVERIO DALTON CSN: [id number] : 1950 Provider: David Bernard M.D. Admitted: 07/04/2018 ELECTROCARDIOGRAM DATE OF SERVICE: 07/04/2018 07/04/2018 at 1411. The rhythm is regular , sinus in origin with a rate of [address] interval is prolonged. Limb leads show low voltage. T waves are flattened across the lateral limb and chest leads. Minimal R waves are seen in V2 and V3. Compared with previous tracing dated May 22 2018, there are no major differences. CT interval is longer on the current tracing. DIAGNOSIS: 1) Sinus rhythm, rate 84 beats per minute. 2) 1st degree AV block. 3) Low voltage limb leads. 4) Slow R wave progression, septal chest leads, possibly due to lead placement. 5) Nonspecific T wave flattening. Dictated by: David Bernard M.D./MEDQ D: [id number] V: [id number] cc: Destiny Guillen * XR CHEST PA OR AP 1 VW (07/04/2018 1:38 PM CDT) Specimen Impressions Performed At Impression: INTERFACE SYSTEM 1. Linear atelectasis right midlung. Narrative Performed At Chest, single view. Comparison 05/22/2018. INTERFACE SYSTEM History: Trauma See Reason for Exam Findings: Linear atelectasis right midl cyndi. No effusions. No infiltrations. Heart size is within normal limits. Med deshaun sternotomy. Procedure Note Interface, [facility] Incoming Radiology Results - 07/04/2018 1:43 PM CDT Chest, single view. Comparison 05/22/2018. History: Trauma See Reason for Exam Findings: Linear atelectasis right midlung. No effusions. No infiltrations. Heart size is within normal limits. Median sternotomy. Impression: 1. Linear atelectasis right midlung. Performing Organization Address City/State/Zipcode Ph one Number INTERFACE SYSTEM INTERFACE SYSTEM Refer to clinic/hospital department * TROPONIN BASELINE, 5TH GEN (07/04/2018 1:29 PM CDT) TROPONIN T, 43 (H) <=15 ng/L [facility] BASELINE 5TH LABORATORY GEN SERVICES - [place] Specimen Blood Narrative Performed At Troponin elevated. [facility] [place] Performing Organization Address City/State/Zipcode Ph one Number [facility] CLIA# [id number] [place], [place] [address] [place] [address] [facility] * COMPREHENSIVE METABOLIC PANEL (07/04/2018 1:29 PM CDT) SODIUM 125 (L) 136 - 145 mmol/L [facility] [place] POTASSIUM 4.1 3.5 - 5.1 mmol/L [facility] [place] CHLORIDE 89 (L) 98 - 107 mmol/L [facility] [place] CO2 24 22 - 29 mmol/L [facility] [place] CALCIUM 8.9 8.8 - 10.2 mg/dL [facility] [place] BUN 13 8 - 23 mg/dL [facility] SERVICES - [facility] [place] CREATININE 0.65 (L) 0.67 - 1.17 mg/dL [facility] [place] GLUCOSE 170 (H) 74 - 99 mg/dL [facility] SERVICES - [facility] [place] TOTAL PROTEIN 6.5 (L) 6.6 - 8.7 g/dL [facility] [place] ALBUMIN 3.4 (L) 3.5 - 5.2 g/dL [facility] [place] BILIRUBIN TOTAL 0.3 <=1.2 mg/dL [facility] [place] ALKALINE 90 40 - 129 U/L [facility] PHOSPHATASE [facility]ATORY SERVICES - [place] AST 19 <=41 U/L [facility] [place] ALT 13 10 - 50 U/L [facility] [place] GFR >60 >=60 mL/min/1.73 sq [facility] Comment: meter LABORATORY eGFR has not been validated SERVICES [facility] for use in the elderly (> 70 [...] [facility] LABORATORY SERVICES - [place] ANION GAP 12 4 - 20 mmol/L [facility] - [place] Specimen Blood Performing Organization Address [facility] one [facility]ORY [facility] CLIA# [id number] [place] [address] [place] [address] [place] [address] * PTT (07/04/2018 1:29 PM CDT) PTT 37.9 (H) 23.0 - 31.0 seconds [facility] - [place] Specimen Blood Performing Organization Address [facility] one [facility] LABORATORY SERVICES CLIA# [id number] [place] [address] [facility] [address] [place] [address] * PROTIME-INR (07/04/2018 1:29 PM CDT) PROTIME 12.6 (H) 9.6 - 11.1 Seconds [facility] [place] INR 1.2 (L) 2.0 - 3.0 [facility] - [place] Specimen Blood Performing Organization Address [facility] one [facility] LABORATORY [facility] CLIA# [id number] [place] [address] - [facility] [place] [address] [place] [address] * CBC WITH DIFFERENTIAL (07/04/2018 1:29 PM CDT) WBC 12.2 (H) 3.6 - 11.1 K/uL [facility] [place] RBC 3.91 (L) 4.49 - 5.52 M/uL [facility] - [place] HEMOGLOBIN 10.8 (L) 13.3 - 16.5 g/dL [facility] [place] HEMATOCRIT 31.6 (L) 40.7 - 48.9 % [facility] [place] MCV 80.8 (L) 82.7 - 97.1 fL [facility] [place] MCH 27.6 27.1 - 32.3 pg [facility] [place] MCHC 34.2 31.3 - 34.9 g/dL [facility] [place] RDW 13.9 11.5 - 14.7 % [facility] [place] RDW-STDEV 41.0 37.2 - 47.6 fL [facility] - [place] PLATELETS 467 (H) 136 - 352 K/uL [facility] [place] MPV 7.8 (L) 8.6 - 11.8 fL [facility] - [place] NEUTROPHILS 80 (H) 44 - 74 % [facility] [place] LYMPHOCYTES 12 (L) 16 - 44 % [facility] [place] MONOCYTES 8 4 - 11 % [facility] [place] EOSINOPHILS 0 0 - 6 % [facility] [place] BASOPHILS 0 0 - 1 % [facility] [place] IMMATURE 1 0 - 1 % [facility] GRANULOCYTES [facility] [place] NEUTROPHIL 9.74 (H) 1.54 - 7.18 K/uL [facility] [place] LYMPHOCYTE 1.41 0.69 - 3.61 K/uL [facility] [place] MONOCYTE 0.96 (H) 0.19 - 0.95 K/uL [facility] [place] EOSINOPHIL 0.02 0.00 - 0.44 K/uL [facility] [place] BASOPHILS 0.03 0.00 - 0.10 K/uL [facility] [place] IMMATURE 0.07 0.00 - 0.09 K/uL [facility] GRANULOCYTES [facility]AT[facility] ABSOLUTE [facility] - [place] Specimen Blood Performing Organization Address City/State/[facility] Ph one Number [facility] CLIA# [id number] [place] [address] - [place] [address] [place] [address] * CT HIP WO CONTRAST RIGHT (07/04/2018 12:49 PM CDT) Specimen Impressions Performed At IMPRESSION: INTERFACE SYSTEM Cortical irregularity along the superio r margin of the junction of the right femoral head and neck. Nondisplac ed fracture cannot be excluded. Right hip joint effusion, potentially r epresenting hemarthrosis Narrative Performed At Exam: CT HIP WO CONTRAST RIGHT INTERFACE SYSTEM Date/Time of Exam: 07/04/2018 12:49 PM Reason for Study: Hip trauma, fx known or suspected, xray insufficient; CLINICAL INDICATION: See Reason for Exam TECHNIQUE: Axial scans without IV contrast COMPARISON: X-ray from July 04, 2018 FINDINGS: Focal cortical irregularity along the s uperior aspect of the femur, at the junction of the femoral head and ne ck, is demonstrated, and a nondisplaced subcapital fracture cannot be entirely excluded There is a moderate right hip joint eff usion, which could represent hemarthrosis Right hip arthritis appears mild to mod erate Vacuum phenomenon is demonstrated at th e right sacroiliac joint, consistent with chronic degenerative ch betzaida Procedure Note Interface, [facility] Incoming Radiology Results - 07/04/2018 1:05 PM CDT Exam: CT HIP WO CONTRAST RIGHT Date/Time of Exam: 07/04/2018 12:49 PM Reason for Study: Hip trauma, fx known or suspected, xray insufficient; CLINICAL INDICATION: See Reason for Exam TECHNIQUE: Axial scans without IV contrast COMPARISON: X-ray from July 04, 2018 FINDINGS: Focal cortical irregularity along the superior aspect of the femur, at the junction of the femoral head and neck, is demonstrated, and a nondisplaced subcapital fracture cannot be entirely excluded There is a moderate right hip joint effusion, which could represent hemarthrosis Right hip arthritis appears mild to moderate Vacuum phenomenon is demonstrated at the right sacroiliac joint, consistent with chronic degenerative change IMPRESSION: Cortical irregularity along the superior margin of the junction of the right femoral head and neck. Nondisplaced fracture cannot be excluded. Right hip joint effusion, potentially representing hemarthrosis Performing Organization Address City/State/Zipcode Ph one Number INTERFACE SYSTEM INTERFACE SYSTEM Refer to clinic/hospital department * XR HIP 2 OR 3 VIEWS RT (07/04/2018 12:09 PM CDT) Specimen Impressions Performed At IMPRESSION: INTERFACE SYSTEM Mild cortical irregularity at the base of the lateral right femoral head, given history of fall, this may r epresent a nondisplaced subcapital fracture Narrative Performed At AP pelvis, AP and lateral radiographs of the right hi p 07/04/2018 12:09 INTERFACE SYSTEM PM HISTORY: 67 years Male presents with fa ll COMPARISON: 11/30/2017 FINDINGS: There is now mild cortical regularity a t the base of the lateral right femoral head. Partial visualization o f the left gamma nail. There is mild arthrosis of both hips. Incidental note of a penile implant. There are surgical clips in the right l ower abdomen. Procedure Note Interface, [facility] Incoming Radiology Results - 07/04/2018 12:16 PM CDT AP pelvis, AP and lateral radiographs of the right hip 07/04/2018 12:09 PM HISTORY: 67 years Male presents with fall COMPARISON: 11/30/2017 FINDINGS: There is now mild cortical regularity at the base of the lateral right femoral head. Partial visualization of the left gamma nail. There is mild arthrosis of both hips. Incidental note of a penile implant. There are surgical clips in the right lower abdomen. IMPRESSION: Mild cortical irregularity at the base of the lateral right femoral head, given history of fall, this may represent a nondisplaced subcapital fracture Performing Organization Address City/State/Zipcode Ph one Number INTERFACE SYSTEM INTERFACE SYSTEM Refer to clinic/hospital department documented in this encounter Visit Diagnoses Diagnosis Closed fracture of right hip, initial e ncounter - Primary Acute SD, subendocardial Acute myocardial infarction, subendocar dial infarction, episode of care unspecified Fall from standing, initial encounter Hyponatremia Hyposmolality and/or hyponatremia Anemia, chronic disease Anemia of other chronic disease documented in this encounter Administered Medications Action Date Dose Rate Site Medication Order MAR Action 07/04/2018 2:18 PM CDT 324 mg ASPIRIN 81 MG CHEWABLE TABLET (CABINET Given OVERRIDE) 1 dose, Starting Wed07/04/18 at 1416, Until Wed07/04/18 at 1418, Null OMNICELL: cabinet override, 07/04/2018 2:44 PM CDT 2 mg morphine 4 mg/mL injection 2 mg Push 2 mg, IV, ONE TIME ONLY, 1 dose, Wed07/04/18 at 1445, Stat 07/04/2018 2:45 PM CDT 150 mL/hr sodium chloride 0.9% infusion New Bag IV, at 150 mL/hr, CONTINUOUS, Starting Wed07/04/18 at 1445, Until Wed07/04/18 at 1752, Stat documented in this encounter Additional Health Concerns Assessment Noted Time A Hypertension Plan of Care has been documented for t he patient 02/12/2017 12:54 PM CDT A Depression follow-up plan has been documented for t he patient 03/14/2018 11:52 AM CDT documented as of this encounter
--- OUTSIDE RECORDS SUMMARY | 2020-03-24 13:49 | XMS REPORT | Encounter Summary ---
Author Author [facility] Organization [facility] Address Unknown Phone Unavailable Care Team Providers Care Newscast Director Name Role Phone Claus Couch MD PCP Encounter Details Care Team Description Date Type Department Claus Couch MD [address] [place] [address] 05/10/2018 Abstract [facility] Primar y Care [place] [address] [place] [address] Social History Date Tobacco Use [...]
--- OUTSIDE RECORDS SUMMARY | 2020-03-24 13:49 | XMS REPORT | Encounter Summary ---
Author Author [facility] Organization [facility] Address Unknown Phone Unavailable Care Team Providers Care Lead Consultant Name Role Phone Claus Couch MD PCP Reason for Visit * Reason Comments general weakness Saw Dr Tavarez on wednesday and was diagnosed with a UTI. Has gotten weaker since that time and is using assistance to transfer. Cough Has had increased coughing in the last two days and states his chest hurts when he coughs * Auth/Cert Referred By Contact Referred To Contact Status Reason Specialty Diagnoses / Procedures [facility] Emergency [address] [place] [address] Emergency Medicine Encounter Details Care Team Description Date Type Department Niko Antonio MD [address] [place] [id number] Acute cystitis without hematuria (Primar y Dx) 05/22/2018 Emergency [facility] Emergency Department [address] [phone] Social History Date Tobacco Use [...] Signs Reading Time Taken Comments Vital Sign 103/66 05/22/2018 7:00 PM CDT Blood Pressure 86 05/22/2018 6:00 PM CDT Pulse 36.7 C (98.1 F) 05/22/2018 6:00 PM CDT Temperature 22 05/22/2018 7:00 PM CDT Respiratory Rate 93% 05/22/2018 6:00 PM CDT Oxygen Saturation - - Inhaled Oxygen Concentration - - Weight - - Height - - Body Mass Index documented in this encounter Discharge Instructions * Attachments The following attachments cannot be sent through Care Everywhere.* UTI (Urinary Tract Infection): Male (Hungarian) documented in this encounter Medications at Time [...] Drop in both eyes 2 times daily. 05/22/2018 05/29/2018 nitrofurantoin (MACROBID) Take 1 14 Capsule 0 100 mg capsule Capsule (100 mg) by mouth 2 times daily for 7 days. 05/13/2018 06/08/2018 oxyCODONE (OxyCONTIN) 20 Take 1 Tablet 60 [...] capsule Capsules (40 mg) by mouth daily. 03/28/2018 06/13/2018 ondansetron (ZOFRAN ODT) Place 1 30 Tablet 2 4 mg Tablet, Rapid Tablet (4 mg) Dissolve under tongue every 8 hours as needed for Nausea/Emesis . 03/14/2018 11/03/2018 raNITIdine (ZANTAC) 150 Take 1 [...] Procedure Notes * David Ferrer MD - 05/23/2018 10:50 AM CDT Associated Order(s): EKG 12 LEAD UNIT PERFORMED [address] [place] [address] Patient Name: OLIVERIO DALTON CSN: [id number] : 1950 Provider: David Bernard M.D. Admitted: 05/22/2018 ELECTROCARDIOGRAM DATE OF SERVICE: 05/22/2018 05/22/2018 at 1819. The rhythm is regular, sinus in origin with a rate of 89 beat s per minute. Limb leads show low voltage. NY interval is borderline prolonged. Minimal R waves are seen in V2. T waves are flattened across the limb leads and lateral chest leads. Compared with previous tracing dated 2017, QT interval is not prolonged currently. R waves are slightly better seen in V2 prev iously. DIAGNOSIS: 1) Sinus rhythm, rate 89 beats per minute. 2) Low voltage cox b leads. 3) Nonspecific T wave flattening. 4) Borderline prolonged NY interval. 5) Abnormal R wave progression, septal chest leads, possibly due to lead placeme nt. Septal wall myocardial infarct of undetermined age cannot be completely rule d out. Dictated by: David Bernard M.D./MEDQ D: [id number] V: [id number] cc: NIKO Couch M.D. documented in this encounter ED Notes * Niko Antonio MD - 05/22/2018 5:06 PM CDT HISTORY OF PRESENT ILLNESS Oliverio Dalton, a 67 y.o. male presents to the ED with a Chief Complaint of ge neral weakness and Cough Subjective Saw dr tavarez Wednesday for weakness and uti Started on cipro Worsened over the weekend Now coughing, hurts to take deep breaths History provided by: The patient and a caregiver Arrived by: Private vehicle Arrived from: Home general weakness Associated symptoms: chest pain (with deep breaths), cough, dysuria, nausea and urgency Associated symptoms: no abdominal pain and no vomiting Cough Associated symptoms: chest pain (with deep breaths) and chills REVIEW OF SYSTEMS Review of Systems Constitutional: Positive for activity change, appetite change, chills and fatigu e. HENT: Positive for congestion. Respiratory: Positive for cough. Cardiovascular: Positive for chest pain (with deep breaths). Negative for leg sw elling. Gastrointestinal: Positive for nausea. Negative for abdominal pain and vomiting. Genitourinary: Positive for difficulty urinating, dysuria and urgency. Neurological: Positive for weakness (generalized, no focal). PAST MEDICAL HISTORY REVIEWED MEDICAL: Patient has [...] stag e 3; Stable angina; Major depression; and Right lateral epicondylitis on his pro blem list. ALLERGIES Penicillins; Codeine; Doxycycline; Phenobarbital; Piperacillin-tazobactam; Septr a [sulfamethoxazole-trimethoprim]; Terazosin; and Valium [diazepam] HOME MEDICATIONS Discharge Medication List as of 05/22/2018 9:46 PM START taking these medications Details nitrofurantoin (MACROBID) 100 mg capsule Take 1 Capsule (100 mg) by mouth 2 time s daily for 7 days., Disp-14 Capsule, R-None CONTINUE these medications which have NOT CHANGED Details oxyCODONE (OxyCONTIN) 20 mg Controlled Release 12 hour crush resistant tablet Ta ke 1 Tablet (20 mg) by mouth every 12 hours., Disp-60 Tablet, R-0 simvastatin (ZOCOR) 40 mg tablet TAKE ONE TABLET (40MG) BY MOUTH EVERY DAY IN TH E EVENING, Disp-90 Tablet, R-1 bethanechol (URECHOLINE) 25 mg tablet Take 1 Tablet (25 mg) by mouth 4 times conor ly., Disp-120 Tablet, R-3 ezetimibe (ZETIA) 10 mg tablet Take 1 Tab by mouth daily at bedtime., Disp-30 Ta blet, R-5 LORazepam (ATIVAN) 1 mg tablet Take 1 Tablet (1 mg) by mouth 2 times daily., Dis p-60 Tablet, R-2 Magnesium 250 mg Tablet Take 1 Tablet by mouth every 12 hours., Disp-60 Tablet, R-5 multivitamin (DAILY-DAVID) tablet Take 1 Tablet by mouth daily with lunch., Disp- 30 Tablet, R-5 nystatin (NYSTOP) 100,000 unit/gram powder Apply to affected area 2 times daily. , Disp-60 Gram, R-PRN phenytoin sodium (DILANTIN) 100 mg extended release capsule Take 2 Capsules (200 mg) by mouth 2 times daily., Disp-120 Capsule, R-2 temazepam (RESTORIL) 7.5 mg capsule Take 1 Capsule (7.5 mg) by mouth nightly as needed for Insomnia., Disp-30 Capsule, R-2 OLANZapine (ZyPREXA) 2.5 mg tablet Take 1 Tablet (2.5 mg) by mouth daily at bedt melvina., Disp-30 Tablet, R-5 ramipril (ALTACE) 5 mg capsule Take 1 Capsule (5 mg) by mouth daily., Disp-30 Ca psule, R-5 FLUoxetine (PROzac) 20 mg capsule Take 2 Capsules (40 mg) by mouth daily., Disp- 180 Capsule, R-1 ondansetron (ZOFRAN ODT) 4 mg Tablet, Rapid Dissolve Place 1 Tablet (4 mg) under tongue every 8 hours as needed for Nausea/Emesis., Disp-30 Tablet, R-2 raNITIdine (ZANTAC) 150 mg tablet Take 1 Tablet (150 mg) by mouth 2 times daily. , Disp-60 Tablet, R-5 traZODone (DESYREL) 50 mg tablet Take 1 Tab by mouth daily at bedtime., Disp-30 Tablet, R-5 pioglitazone (ACTOS) 30 mg tablet Take 1 Tab by mouth daily., Disp-90 Tablet, R- 1 albuterol HFA 90 mcg inhaler Take 2 Puffs by inhalation every 4 hours as needed for Shortness of Br eath.., Disp-8.5 Gram, R-11 clopidogrel (PLAVIX) 75 mg Tablet Take 1 Tab by mouth daily., Disp-30 Tablet, R- 5 fenofibrate nanocrystallized (TRICOR) 145 mg tablet Take 1 Tablet (145 mg) by mo uth daily WITH SUPPER, Disp-30 Tablet, R-11 tamsulosin (FLOMAX) 0.4 mg capsule Take 1 Capsule (0.4 mg) by mouth daily 30 MIN UTES AFTER SUPPER., Disp-30 Capsule, R-11 fluticasone (FLOVENT HFA) 110 mcg/actuation HFA Aerosol Inhaler Take 1 Puff by i nhalation 2 times daily.., Disp-12 Gram, R-5 polyethylene glycol 3350 (MIRALAX) 17 gram/dose Powder Take 1 SCOOP (17 Gram) by mouth daily Dissolve in 8 ounces of fluid and drink entire liquid., Disp-527 Gr am, R-0 blood sugar diagnostic (ACCU-CHEK ACTIVE TEST) Misc Strp In the am & pm prn, Disp-1 Package, R-0 BETIMOL 0.5 % OP Drop Administer 1 Drop in both eyes 2 times daily. nitroglycerin (NITROSTAT) 0.4 mg Tablet, Sublingual DISSOLVE 1 TABLET UNDER TONG UE EVERY 5 MINUTES NEEDED FOR CHEST KULDEEP N. DO NOT EXCEED 3 DOSES.., Disp-25 T ablet, R-PRN HYDROcodone-acetaminophen (NORCO) 5-325 mg tablet Take 1-2 Tablets by mouth ever y 4 hours as needed for Pain. Max Daily Amount: 12 TabletsPe discharge list from [facility]: Marquise fontenotyDisp-60 Tablet, R-0 sennosides-docusate sodium (SENOKOT-S) 8.6-50 mg tablet Take 1 Tablet by mouth d aily., Disp-30 Tablet, R-5 gabapentin (NEURONTIN) 300 mg capsule Take 1 Capsule (300 mg) by mouth daily at bedtime., Disp-30 Capsule, R-5 isosorbide mononitrate (IMDUR) 60 mg Extended Release 24 hour tablet TAKE ONE TA BLET BY MOUTH 2 TIMES A DAY, Disp-60 Tablet, R-5 loratadine (CLARITIN) 10 mg tablet Take 1 Tab by mouth daily., Disp-30 Tablet, R -5 Objective PHYSICAL EXAM INITIAL VS BP: 118/81 (05/22/18 1800), Heart Rate: 86 bpm (05/22/18 1800), Resp: 18 ( 1800), Temp: 98.1 F (36.7 C) (05/22/18 1800), Temp src: Oral (05/22/18 00), SpO2: 93 % (07/15/18 1800), Height: (not recorded), Weight: (not recorded), BMI (Calculated): (not recorded) No LMP for male patient. Physical Exam Constitutional: He is oriented to person, place, and time. Vital signs are anish l. He appears cachectic. He has a sickly appearance. Chronically ill HENT: Head: Normocephalic and atraumatic. Neck: Normal range of motion. Neck supple. Cardiovascular: Normal rate and regular rhythm. Murmur heard. Pulmonary/Chest: Tachypnea noted. He has decreased breath sounds. He has wheezes . He has rales. Musculoskeletal: Normal range of motion. Neurological: He is alert and oriented to person, place, and time. Skin: Skin is warm. Capillary refill takes less than 2 seconds. Psychiatric: He has a normal mood and affect. His behavior is normal. DIAGNOSTICS LAB: CBC WITH DIFFERENTIAL - Abnormal Result Value WBC 11.8 (*) RBC 4.13 (*) HEMOGLOBIN 11.4 (*) HEMATOCRIT 33.8 (*) MCV 81.8 (*) MCH 27.6 MCHC 33.7 RDW 14.3 RDW-STDEV 42.3 PLATELETS 417 (*) MPV 7.6 (*) NEUTROPHILS 71 LYMPHOCYTES 18 MONOCYTES 9 EOSINOPHILS 1 BASOPHILS 0 IMMATURE GRANULOCYTES 1 NEUTROPHIL ABSOLUTE 8.46 (*) LYMPHOCYTE ABSOLUTE 2.11 MONOCYTE ABSOLUTE 1.11 (*) EOSINOPHIL ABSOLUTE 0.06 BASOPHILS ABSOLUTE 0.02 IMMATURE GRANULOCYTES ABSOLUTE 0.08 COMPREHENSIVE METABOLIC PANEL - Abnormal SODIUM 136 POTASSIUM 4.1 CHLORIDE 101 CO2 27 CALCIUM 9.4 BUN 12 CREATININE 0.66 (*) GLUCOSE 141 (*) TOTAL PROTEIN 6.8 ALBUMIN 3.8 BILIRUBIN TOTAL 0.2 ALKALINE PHOSPHATASE 89 AST 17 ALT 12 GFR >60 GFR, >60 ANION GAP 8 URINALYSIS WITH REFLEX CULTURE - Abnormal COLOR UA Colorless (*) CLARITY UA Cloudy (*) SPECIFIC GRAVITY UA 1.003 PH UA 7.0 LEUKOCYTE ESTERASE UA 3+ (*) NITRITE UA Negative PROTEIN UA Negative GLUCOSE UA Negative KETONES UA Negative UROBILINOGEN UA <2.0 BILIRUBIN UA Negative BLOOD UA Trace (*) WBC UA >100 (*) RBC UA 11-25 (*) BACTERIA UA Negative EPITHELIAL CELLS, URINE 0-5 TRANSITIONAL EPI 0-2 AMORPHOUS CRYSTAL Present (*) WBC CLUMPS Present (*) TROPONIN - Normal TROPONIN T <0.01 BLOOD CULTURE BLOOD CULTURE URINE CULTURE RADIOLOGY: XR CHEST PA OR AP 1 VW Radiologist Impression IMPRESSION: Negative for acute infiltrate Given the reported significant smoking history, chest CT is recommended at some clinically appropriate point in time. If patient meets criteria, this could be performed using low-dose lung cancer screening CT protocol on an elective, outpatient basis Comment: Low-dose lung cancer CT screening is recommended for patients between the ages of 55 and 77, asymptomatic for signs or symptoms of lung cancer, smoking history of at least 30 pack-years, and who is a current smoker or has quit smoking within the last 15 years. EKG: PROCEDURES Procedures MEDICAL DECISION MAKING AND PLAN OF CARE Patient transitioned to Dr. Antonio at 1900 for further care. Patient labs noted to have continued UTI but otherwise labs appeared well. On my initial exam, patient no longer had wheezing, tachypnea, or rales but did have decreased breath sounds. Patient was given an RX for Macrobid as UTI treatment (given allergies and known prelim UCx results from previous assessment in clinic) and encouraged to transi tion antibiotics for appropriate coverage of organism. Return precautions provided prior to discharge. MDM Medications Administered During the ED Stay from 05/22/2018 1706 to 05/23/2018 0 223 Date/Time Order Dose Route Action 05/22/2018 1836 ketorolac (TORADOL) injection 15 mg 15 mg IV Given 05/22/2018 1830 cefTRIAXone (ROCEPHIN) 1,000 mg in sodium chloride 0.9% 50 mL IVPB 0 mg IV Stopped 05/22/2018 1800 cefTRIAXone (ROCEPHIN) 1,000 mg in sodium chloride 0.9% 50 mL IVPB 1,000 mg IV New Bag 05/22/2018 183 albuterol (PROVENTIL,VENTOLIN) 2.5 mg /3 mL (0.083 %) inhalati on solution 2.5 mg 2.5 mg Inhalation Given 05/22/2018 1934 sodium chloride 0.9% bolus solution 500 mL 0 mL IV Stopped 05/22/2018 183 sodium chloride 0.9% bolus solution 500 mL 500 mL IV New Bag 05/22/2018 1948 acetaminophen (TYLENOL) tablet 975 mg 975 mg Oral Given Discharge Medication List as of 05/22/2018 9:46 PM START taking these medications Details nitrofurantoin (MACROBID) 100 mg capsule Take 1 Capsule (100 mg) by mouth 2 time s daily for 7 days., Disp-14 Capsule, R-None CONTINUE these medications which have NOT CHANGED Details oxyCODONE (OxyCONTIN) 20 mg Controlled Release 12 hour crush resistant tablet Ta ke 1 Tablet (20 mg) by mouth every 12 hours., Disp-60 Tablet, R-0 simvastatin (ZOCOR) 40 mg tablet TAKE ONE TABLET (40MG) BY MOUTH EVERY DAY IN TH E EVENING, Disp-90 Tablet, R-1 bethanechol (URECHOLINE) 25 mg tablet Take 1 Tablet (25 mg) by mouth 4 times conor ly., Disp-120 Tablet, R-3 ezetimibe (ZETIA) 10 mg tablet Take 1 Tab by mouth daily at bedtime., Disp-30 Ta blet, R-5 LORazepam (ATIVAN) 1 mg tablet Take 1 Tablet (1 mg) by mouth 2 times daily., Dis p-60 Tablet, R-2 Magnesium 250 mg Tablet Take 1 Tablet by mouth every 12 hours., Disp-60 Tablet, R-5 multivitamin (DAILY-DAVID) tablet Take 1 Tablet by mouth daily with lunch., Disp- 30 Tablet, R-5 nystatin (NYSTOP) 100,000 unit/gram powder Apply to affected area 2 times daily. , Disp-60 Gram, R-PRN phenytoin sodium (DILANTIN) 100 mg extended release capsule Take 2 Capsules (200 mg) by mouth 2 times daily., Disp-120 Capsule, R-2 temazepam (RESTORIL) 7.5 mg capsule Take 1 Capsule (7.5 mg) by mouth nightly as needed for Insomnia., Disp-30 Capsule, R-2 OLANZapine (ZyPREXA) 2.5 mg tablet Take 1 Tablet (2.5 mg) by mouth daily at bedt melvina., Disp-30 Tablet, R-5 ramipril (ALTACE) 5 mg capsule Take 1 Capsule (5 mg) by mouth daily., Disp-30 Ca psule, R-5 FLUoxetine (PROzac) 20 mg capsule Take 2 Capsules (40 mg) by mouth daily., Disp- 180 Capsule, R-1 ondansetron (ZOFRAN ODT) 4 mg Tablet, Rapid Dissolve Place 1 Tablet (4 mg) under tongue every 8 hours as needed for Nausea/Emesis., Disp-30 Tablet, R-2 raNITIdine (ZANTAC) 150 mg tablet Take 1 Tablet (150 mg) by mouth 2 times daily. , Disp-60 Tablet, R-5 traZODone (DESYREL) 50 mg tablet Take 1 Tab by mouth daily at bedtime., Disp-30 Tablet, R-5 pioglitazone (ACTOS) 30 mg tablet Take 1 Tab by mouth daily., Disp-90 Tablet, R- 1 albuterol HFA 90 mcg inhaler Take 2 Puffs by inhalation every 4 hours as needed for Shortness of Br eath.., Disp-8.5 Gram, R-11 clopidogrel (PLAVIX) 75 mg Tablet Take 1 Tab by mouth daily., Disp-30 Tablet, R- 5 fenofibrate nanocrystallized (TRICOR) 145 mg tablet Take 1 Tablet (145 mg) by mo uth daily WITH SUPPER, Disp-30 Tablet, R-11 tamsulosin (FLOMAX) 0.4 mg capsule Take 1 Capsule (0.4 mg) by mouth daily 30 MIN UTES AFTER SUPPER., Disp-30 Capsule, R-11 fluticasone (FLOVENT HFA) 110 mcg/actuation HFA Aerosol Inhaler Take 1 Puff by i nhalation 2 times daily.., Disp-12 Gram, R-5 polyethylene glycol 3350 (MIRALAX) 17 gram/dose Powder Take 1 SCOOP (17 Gram) by mouth daily Dissolve in 8 ounces of fluid and drink entire liquid., Disp-527 Gr am, R-0 blood sugar diagnostic (ACCU-CHEK ACTIVE TEST) Misc Strp In the am & pm prn, Disp-1 Package, R-0 BETIMOL 0.5 % OP Drop Administer 1 Drop in both eyes 2 times daily. nitroglycerin (NITROSTAT) 0.4 mg Tablet, Sublingual DISSOLVE 1 TABLET UNDER TONG UE EVERY 5 MINUTES NEEDED FOR CHEST KULDEEP N. DO NOT EXCEED 3 DOSES.., Disp-25 T ablet, R-PRN HYDROcodone-acetaminophen (NORCO) 5-325 mg tablet Take 1-2 Tablets by mouth ever y 4 hours as needed for Pain. Max Daily Amount: 12 TabletsPe discharge list from [facility]: Michell fontenot-60 Tablet, R-0 sennosides-docusate sodium (SENOKOT-S) 8.6-50 mg tablet Take 1 Tablet by mouth d aily., Disp-30 Tablet, R-5 gabapentin (NEURONTIN) 300 mg capsule Take 1 Capsule (300 mg) by mouth daily at bedtime., Disp-30 Capsule, R-5 isosorbide mononitrate (IMDUR) 60 mg Extended Release 24 hour tablet TAKE ONE TA BLET BY MOUTH 2 TIMES A DAY, Disp-60 Tablet, R-5 loratadine (CLARITIN) 10 mg tablet Take 1 Tab by mouth daily., Disp-30 Tablet, R -5 LAST VS BP: 111/54 (05/22/182223), Heart Rate: 69 bpm (05/22/182223), Resp: 16 (2223), Temp: 97.9 F (36.6 C) (05/22/182223), Temp src: Oral (05/22/18), SpO2: 96 % (05/22/182223) CLINICAL IMPRESSION Final diagnoses: [N30.00] Acute cystitis without hematuria (Primary) DISPOSITION, EDUCATION AND MEDICATION RECONCILIATION Medications reconciled. See after visit summary for patient education on discha rged patients. ED Disposition ED Disposition Condition User Date/Time Comment Discharge Stable Niko Antonio MD Sun May 22, 2018 9:17 PM documented in this encounter Plan of Treatment Not on filedocumented as of this encounter Procedures Comments Procedure Name Priority Date/Time Associated Diag nosis EKG 12 LEAD UNIT Stat 05/31/2018 PERFORMED 1:09 PM CDT URINALYSIS WITH REFLEX Stat 05/22/2018 CULTURE 8:05 PM CDT URINE CULTURE Stat 05/22/2018 8:05 PM CDT BLOOD CULTURE Stat 05/22/2018 6:54 PM CDT CBC WITH DIFFERENTIAL Stat 05/22/2018 6:32 PM CDT BLOOD CULTURE Stat 05/22/2018 6:32 PM CDT TROPONIN Stat 05/22/2018 6:32 PM CDT COMPREHENSIVE METABOLIC Stat 05/22/2018 PANEL 6:32 PM CDT XR CHEST PA OR AP 1 VW Stat 05/22/2018 6:15 PM CDT documented in this encounter Results * EKG 12 LEAD UNIT PERFORMED (05/31/2018 1:09 PM CDT) Narrative Performed At This result has an attachment that is n ot available. Procedure Note David Bernard MD - 05/23/2018 10:50 AM CDT [address] [place] [address] Patient Name: OLIVERIO DALTON CSN: [id number] : 1950 Provider: David Bernard M.D. Admitted: 05/22/2018 ELECTROCARDIOGRAM DATE OF SERVICE: 05/22/2018 05/22/2018 at 1819. The rhythm is regular , sinus in origin with a rate of 89 beats per minute. Limb leads show low voltage. NY interval is borderline prolonged. Minimal R waves are seen in V2. T waves are flattened across the limb leads and lateral chest leads. Compared with previous tracing dated 2017, QT interval is not prolonged currently. R waves are slightly better seen in V2 previously. DIAGNOSIS: 1) Sinus rhythm, rate 89 beats per minute. 2) Low voltage limb leads. 3) Nonspecific T wave flattening. 4) Borderline prolonged NY interval. 5) Abnormal R wave progression, septal chest leads, possibly due to lead placement. Septal wall myocardial infarct of undetermined age cannot be completely ruled out. Dictated by: David Bernard M.D./MEDQ D: [id number] V: [id number] cc: NIKO Couch M.D. * URINE CULTURE (05/22/2018 8:05 PM CDT) CULTURE No growth [facility] Specimen Urine - Urine specimen obtained by clean catch procedure (specimen) Narrative Performed At REFERENCE LAB ACC #: [id number] [facility] Performing Organization Address City/State/Zipcode Ph one Number [facility] CLIA # [id number] [place] [address] [phone] [facility] [facility] CLIA # [id number] [place] [address] [facility] [address] [place] [address] * URINALYSIS WITH REFLEX CULTURE (05/22/2018 8:05 PM CDT) COLOR UA Colorless (A) Pale to dark yellow [facility] [place] CLARITY UA Cloudy (A) Clear [facility] [place] SPECIFIC 1.003 1.003 - 1.035 [facility] GRAVITY [facility] LABORATORY SERVICES - [place] PH UA 7.0 5.0 - 8.0 [facility] [place] LEUKOCYTE 3+ (A) Negative [facility] ESTERASE [facility] LABORATORY SERVICES - [place] NITRITE UA Negative Negative [facility] [place] PROTEIN UA Negative Negative [facility] [place] GLUCOSE UA Negative Negative [facility] [place] KETONES UA Negative Negative [facility] SERVICES - [facility] [place] UROBILINOGEN UA <2.0 <2.0 mg/dL [facility] [place] BILIRUBIN UA Negative Negative [facility] SERVICES - [facility] [place] BLOOD UA Trace (A) Negative [facility] Comment: LABORATORY For patients with [facility] 'trace' results, vane [place] ordering a culture and sensitivity if clinically indicated. WBC UA >100 (A) 0 - 2 /hpf [facility] [place] RBC UA 11-25 (A) 0 - 2 /hpf [facility] [place] BACTERIA UA Negative Negative /hpf [facility] [place] EPITHELIAL 0-5 0 - 5 /hpf [facility] CELLS, URINE LABORATORY SERVICES - [place] TRANSITIONAL 0-2 0 - 2 /hpf [facility] EPI [facility]ATORY SERVICES - [place] AMORPHOUS Present (A)Comment: 1+ Absent [facility] CRYSTAL LABORATORY SERVICES - [place] WBC CLUMPS Present (A)Comment: 0-5/lpf Absent [facility] - [place] Specimen Urine - Urine specimen obtained by clean catch procedure (specimen) Narrative Performed At Based on results, a urine culture has been reflexed. [facility] [place] Performing Organization Address City/State/[facility] Ph one Number [facility] CLIA# [id number] GAB [place] [phone] - [place] [address] [place] [address] * BLOOD CULTURE (05/22/2018 6:54 PM CDT) CULTURE No growth at 5 days [facility] Specimen Blood Narrative Performed At Specimen processed with suboptimal blood volume colle cted. [facility] REFERENCE LAB ACC #: [id number] [facility] Performing Organization Address City/State/Zipcode Ph one Number [facility] CLIA # [id number] [place] [address] [phone] [facility] 100 [facility] LAB[facility]ATORY CLIA # [id number] [place] [address] [facility] [address] [facility] * BLOOD CULTURE (05/22/2018 6:32 PM CDT) CULTURE No growth at 5 days [facility] Specimen Blood - Peripheral Narrative Performed At REFERENCE LAB ACC #: [id number] [facility] Performing Organization Address City/[facility] one Number [facility] CLIA # [id number] [place] [address] [facility] 100 [facility] CLIA # [id number] [place] [address] [facility] [address] [facility] * TROPONIN (05/22/2018 6:32 PM CDT) TROPONIN T <0.01 <0.01 ng/mL [facility] - [place] Specimen Blood Performing Organization Address City/[facility] one Number [facility] Senior Living SERVICES CLIA# [id number] [place] [place] [phone] - [place] [address] [place] [address] * COMPREHENSIVE METABOLIC PANEL (05/22/2018 6:32 PM CDT) SODIUM 136 136 - 145 mmol/L [facility] [facility] - [place] POTASSIUM 4.1 3.5 - 5.1 mmol/L [facility] - [facility] CHLORIDE 101 98 - 107 mmol/L [facility] - [place] CO2 27 22 - 29 mmol/L [facility] LABORATORY SERVICES - [facility] CALCIUM 9.4 8.8 - 10.2 mg/dL [facility] LABORATORY SERVICES - [facility] BUN 12 8 - 23 mg/dL [facility] LABORATORY SERVICES - [place] CREATININE 0.66 (L) 0.67 - 1.17 mg/dL [facility] LABORATORY SERVICES - [facility] GLUCOSE 141 (H) 74 - 99 mg/dL [facility] LABORATORY SERVICES - [facility] TOTAL PROTEIN 6.8 6.6 - 8.7 g/dL [facility] LABORATORY SERVICES - [place] ALBUMIN 3.8 3.5 - 5.2 g/dL [facility] LABORATORY SERVICES - [facility] BILIRUBIN TOTAL 0.2 <=1.2 mg/dL [facility]ORY SERVICES - [place] ALKALINE 89 40 - 129 U/L [facility] PHOSPHATASE LABORATORY SERVICES - [place] AST 17 <=41 U/L [facility] - [place] ALT 12 10 - 50 U/L [facility] - [place] GFR >60 >=60 mL/min/1.73 sq [facility] Comment: meter LABORATORY eGFR has not been validated [facility] for use in the elderly (> [...] result. GFR, >60 >=60 mL/min/1.73 sq [facility]ENINESE meter LABORATORY SERVICES - [place] ANION GAP 8 4 - 20 mmol/L [facility] LABORATORY SERVICES - [facility] Specimen Blood Performing Organization Address City/State/[facility] Cent[facility] Ph one Number [facility] LAB[facility]ORY SERVICES CLIA# [id number] [place] [address] - [place] [address] [facility] [facility] * CBC WITH DIFFERENTIAL (05/22/2018 6:32 PM CDT) WBC 11.8 (H) 3.6 - 11.1 K/uL [facility] - [place] RBC 4.13 (L) 4.49 - 5.52 M/uL [facility] - [place] HEMOGLOBIN 11.4 (L) 13.3 - 16.5 g/dL [facility] - [place] HEMATOCRIT 33.8 (L) 40.7 - 48.9 % [facility] [place] MCV 81.8 (L) 82.7 - 97.1 fL [facility] - [place] MCH 27.6 27.1 - 32.3 pg [facility] - [place] MCHC 33.7 31.3 - 34.9 g/dL [facility] - [place] RDW 14.3 11.5 - 14.7 % [facility] - [place] RDW-STDEV 42.3 37.2 - 47.6 fL [facility] - [place] PLATELETS 417 (H) 136 - 352 K/uL [facility] - [place] MPV 7.6 (L) 8.6 - 11.8 fL [facility] - [place] NEUTROPHILS 71 44 - 74 % [facility] - [place] LYMPHOCYTES 18 16 - 44 % [facility] [place] MONOCYTES 9 4 - 11 % [facility] [place] EOSINOPHILS 1 0 - 6 % [facility] - [place] BASOPHILS 0 0 - 1 % [facility] [place] IMMATURE 1 0 - 1 % [facility] GRANULOCYTES LAB[facility]ATORY SERVICES - [place] NEUTROPHIL 8.46 (H) 1.54 - 7.18 K/uL [facility] ABSOLUTE LAB[facility]AT[facility] - [place] LYMPHOCYTE 2.11 0.69 - 3.61 K/uL [facility]UTE [facility] - [place] MONOCYTE 1.11 (H) 0.19 - 0.95 K/uL [facility]UTE [facility] - [place] EOSINOPHIL 0.06 0.00 - 0.44 K/uL [facility] - [place] BASOPHILS 0.02 0.00 - 0.10 K/uL [facility]UTE [facility] - [place] IMMATURE 0.08 0.00 - 0.09 K/uL [facility] GRANULOCYTES LABORATORY ABSOLUTE SERVICES - [place] Specimen Blood Performing Organization Address City/State/Zipcode Ph one Number [facility] LABORATORY SERVICES CLIA# [id number] [place] [address] - [place] [address] * XR CHEST PA OR AP 1 VW (05/22/2018 6:15 PM CDT) Specimen Impressions Performed At IMPRESSION: INTERFACE SYSTEM Negative for acute infiltrate Given the reported significant smoking history, chest CT is recommended at some clinically appropri ate point in time. If patient meets criteria, this could be performed using low-dose lung cancer screening CT protocol on an elective, o utpatient basis Comment: Low-dose lung cancer CT screening is re commended for patients between the ages of 55 and 77, asymptomatic for signs or symptoms of lung cancer, smoking history of at least 30 pack-years, and who is a current smoker or has quit smoking with in the last 15 years. Narrative Performed At Exam: XR CHEST PA OR AP 1 VW INTERFACE SYSTEM Date/Time of Exam: 05/22/2018 6:15 PM Reason For Exam: Chronic Cough. COMPARISON: Chest x-ray October 26, 2017 FINDINGS: Single view The heart size is normal Negative for consolidative infiltrate Negative for significant pulmonary vasc ular congestion Negative for significant pleural effusi on Negative for pneumothorax Mediastinal, hilar contours within norm al limits Procedure Note Interface, [facility] Incoming Radiology Results - 05/22/2018 6:23 PM CDT Exam: XR CHEST PA OR AP 1 VW Date/Time of Exam: 05/22/2018 6:15 PM Reason For Exam: Chronic Cough. COMPARISON: Chest x-ray October 26, 2017 FINDINGS: Single view The heart size is normal Negative for consolidative infiltrate Negative for significant pulmonary vascular congestion Negative for significant pleural effusion Negative for pneumothorax Mediastinal, hilar contours within normal limits IMPRESSION: Negative for acute infiltrate Given the reported significant smoking history, chest CT is recommended at some clinically appropriate point in time. If patient meets criteria, this could be performed using low-dose lung cancer screening CT protocol on an elective, outpatient basis Comment: Low-dose lung cancer CT screening is recommended for patients between the ages of 55 and 77, asymptomatic for signs or symptoms of lung cancer, smoking history of at least 30 pack-years, and who is a current smoker or has quit smoking within the last 15 years. Performing Organization Address City/State/Zipcode Ph one Number INTERFACE SYSTEM INTERFACE SYSTEM Refer to clinic/hospital department documented in this encounter Visit Diagnoses Diagnosis Acute cystitis without hematuria - Prim rolando Acute cystitis documented in this encounter Administered Medications Action Date Dose Rate Site Medication Order MAR Action 05/22/2018 7:48 PM CDT 975 mg acetaminophen (TYLENOL) tablet 975 mg Given 975 mg, Oral, ONE TIME ONLY, 1 dose, Meredith n 05/22/18 at 1945, Routine 05/22/2018 6:39 PM CDT 2.5 mg albuterol (PROVENTIL,VENTOLIN) 2.5 mg /3 Given mL (0.083 %) inhalation solution 2.5 mg 2.5 mg, Inhalation, ONE TIME ONLY RESPIRATORY, 1 dose, 05/22/18 at 1800, Routine 05/22/2018 6:00 PM CDT 1,000 mg 100 mL/hr cefTRIAXone (ROCEPHIN) 1,000 mg in New Bag sodium chloride 0.9% 50 mL IVPB 1,000 mg, IV, ONE TIME ONLY, 1 dose, Meredith n 05/22/18 at 1800, Routine, Antibiotic Indication: Urinary Tract Infection(UTI ) / Infection 05/22/2018 6:36 PM CDT 15 mg ketorolac (TORADOL) injection 15 mg Given 15 mg, IV, ONE TIME ONLY, 1 dose, 05/22/18 at 1800, Stat 05/22/2018 6:37 PM CDT 500 mL 500 mL/hr sodium chloride 0.9% bolus solution 500 New Bag mL 500 mL, IV, ONE TIME ONLY, 1 dose, 05/22/18 at 1800, at 500 mL/hr, Administer over 60 Minutes, Stat sodium chloride flush injection 10 mL 10 mL, IV, SEE ADMIN INSTRUCTIONS, Starting [place] 05/22/18 at 1753, Until 05/23/18 at 0003, Routine documented in this encounter Additional Health Concerns Assessment Noted Time A Hypertension Plan of Care has been documented for t he patient 02/12/2017 12:54 PM CDT A Depression follow-up plan has been documented for t he patient 03/14/2018 11:52 AM CDT documented as of this encounter
--- OUTSIDE RECORDS SUMMARY | 2020-03-24 13:49 | XMS REPORT | Encounter Summary ---
Author Author [facility] Organization [facility] Address Unknown Phone Unavailable Care Team Providers Care Wire Sawyer Name Role Phone Claus Couch MD PCP Reason for Visit * Reason Comments Discharge Encounter Details Care Team Description Date Type Department Claus Couch MD [address] [place] [address] Discharge 05/04/2018 Telephone [facility] Primar y Care [place] [address] [place] [address] Social History Date Tobacco Use [...] encounter Miscellaneous Notes * Telephone Encounter - Maciej Perez - 05/04/2018 10:29 AM CDT Pao POWERS with called stating they are going to GEE Duron from due to him getting pill packs at [facility]. documented in this encounter Plan of Treatment [...]
--- OUTSIDE RECORDS SUMMARY | 2020-03-24 13:49 | XMS REPORT | Encounter Summary ---
Author Author [facility] Organization [facility] Address Unknown Phone Unavailable Care Team Providers Care Librarian Specialist Name Role Phone Claus Couch MD PCP Reason for Visit * Auth/Cert Referred By Contact Referred To Contact Status Reason Specialty Diagnoses / Procedures [facility] [place] [id number] [place] [address] Home Health Encounter Details Care Team Description Date Type Department Marissa Pitts RN SN - OASIS DISCHARGE 05/04/2018 [facility] [address] [place] [address] Social History Date Tobacco Use [...] - SN - OASIS DISCHARGE Discipline - Group Home Status Goals Interventions Problem Descriptio Start Date n Resolved on 05/04/2018 - 1 problem intervention scheduled/documented in this visit Medications Management 09/08/2017 Disciplines: of home Group Home medication s Resolved on 05/04/2018 - problem intervention scheduled/documented in this visit Physical Discomfort Alteration 09/08/2017 Disciplines: in comfort Group Home Resolved on 05/04/2018 - 1 problem intervention scheduled/documented in this visit Skilled Observation and Skilled 09/08/2017 Assessment nursing Disciplines: observatio Group Home n and assessment . Variance Visit Notes Intervention Associated Status Problem/Go al Medication box Problem: Scheduled Description: Medication SN to fill medication box s every Wednesday. SN to instruct Caregiver and monitor for proper administration. Skilled assessment pain Problem: Scheduled Description: Physical [...] changes in the plan of care. Skilled observation and Problem: Scheduled assessment general Skilled assessment Observatio Description: n and SN to perform general Assessment assessment to include vital signs and temperature. General assessment of systems: pulmonary, cardiovascular, neurologic, gastrointestinal, endocrine, musculoskeletal, renal/urinary, integumentary and report any abnormalities or concerns to the physician. documented in this encounter
--- OUTSIDE RECORDS SUMMARY | 2020-03-24 13:49 | XMS REPORT | Encounter Summary ---
Author Author [facility] Organization [facility] Address Unknown Phone Unavailable Care Team Providers Care Fur Vault Attendant Name Role Phone Claus Couch MD PCP Reason for Visit * Reason Comments Urinary Frequency 4-5 days. hospitalized rece nty for severe UTI. Taken to niki Altered mental status Encounter Details Care Team Description Date Type Department Jada Fernandez MD NO ADDRESS ON FILE Acute cystitis without hematuria (Primar y Dx) 05/20/2018 Office Visit [facility] Primar y Care [address] [id number] Social History Date Tobacco Use Types Packs/Day Years Used Quit: 03/08/1995 Current Every Day Smoker Cigarettes 2 40 Smokeless Tobacco: Never Used Tobacco Cessation: Ready to Quit: Yes Comments: Restarted smoking cigarettes 1 pack every [...] Reading Time Taken Comments Vital Sign 118/60 05/20/2018 11:19 AM CDT Blood Pressure - - Pulse 36.7 C (98 F) 05/20/2018 11:19 AM CDT Temperature - - Respiratory Rate - - Oxygen Saturation - - Inhaled Oxygen Concentration 68 kg (150 lb) 05/20/2018 11:19 AM CDT Weight 167.6 cm (5' 6") 05/20/2018 11:19 AM CDT Height 24.21 05/20/2018 11:19 AM CDT Body Mass Index documented in this encounter Progress Notes * Jada Fernandez MD - 05/22/2018 10:47 AM CDT SUBJECTIVE: Oliverio Dalton is a 67 y.o. male who complains of urinary frequenc y, urgency and dysuria x 2 days, without flank pain, fever, chills, or abnormal vaginal discharge or bleeding. Past Medical History: Diagnosis Date Anxiety Asthma Cataract Chronic ischemic heart disease, unspecified Contusion, back 08/16/03 Fall COPD (chronic obstructive pulmonary disease) Coronary artery disease Diabetes Glaucoma Hip fracture, left Seizure disorder last seizure 2010 Unspecified disease of respiratory system Unspecified disorder of lipoid metabolism Unspecified essential hypertension Wrist sprain 08/10 Rt. Past Surgical History: Procedure Laterality Date HX CATARACT REMOVAL 2000 HX CORONARY ARTERY BYPASS GRAFT HX HEART CATHETERIZATION 04/10 With angioplasty, 2 stents HX HERNIA INGUINAL REPAIR Right 03/08/2015 HERNIA INGUINAL REPAIR performed by Beulah Zhou MD at [facility] OR HX HERNIA REPAIR 1988 And age 4 HX HIP SURGERY Left 03/07/2017 HX LAP CHOLECYSTECTOMY 05/17/07 HX SURGICAL OTHER 05/2001 4 bypass HX SURGICAL OTHER 2001 Eyelids shortened HX SURGICAL OTHER 1999 Toenails removed HX SURGICAL OTHER 11/2001 PEA with IOL, OU HX SURGICAL OTHER 04/12 Heart stent HX SURGICAL OTHER 09/12 Stents X5 HX SURGICAL OTHER 08/14 Stents HX SURGICAL OTHER 07/11 Colonoscopy HX TURP 08/2003 LA COLONOSCOPY FLX DX W/COLLJ SPEC WHEN PFRMD 02/01/2009 COLONOSCOPY performed by BEULAH ZHOU at [facility] OR LA COLONOSCOPY FLX DX W/COLLJ SPEC WHEN PFRMD 12/28/2013 COLONOSCOPY performed by Beulah Zhou MD at [facility] OR LA LAP,APPENDECTOMY 05/28/2012 APPENDECTOMY LAPAROSCOPIC performed by Beulah Zhou MD at [facility] OR LA REPAIR UMBILICAL JOSE,5+Y/O,REDUC 05/28/2012 HERNIA UMBILICAL REPAIR performed by Beulah Zhou MD at [facility] OR PSA 09/13 OBJECTIVE: Appears well, in no apparent distress. Vital signs are normal. The a bdomen is soft without tenderness, guarding, mass, rebound or organomegaly. No C VA tenderness or inguinal adenopathy noted. Urine dipstick shows positive for WB C's. Micro exam: Lab Results Component Value Date/Time PHUA 6.5 05/20/2018 10:28 AM SGUR 1.004 05/20/2018 10:28 AM URINELEUKOC 3+ (A) 05/20/2018 10:28 AM NITRITEUA Negative 05/20/2018 10:28 AM KETONEURINE Negative 05/20/2018 10:28 AM PROTEINUA 2+ (A) 05/20/2018 10:28 AM GLUUA Negative 05/20/2018 10:28 AM BLOODUA 1+ (A) 05/20/2018 10:28 AM Lab Results Component Value Date/Time NA 134 (L) 01/05/2018 02:25 PM K 4.1 01/05/2018 02:25 PM CL 94 (L) 01/05/2018 02:25 PM CO2 25 01/05/2018 02:25 PM CA 9.3 01/05/2018 02:25 PM BUN 14 01/05/2018 02:25 PM CREAT 0.62 (L) 01/05/2018 02:25 PM GLUCOSE 207 (H) 01/05/2018 02:25 PM TOTALPROTEIN 7.0 01/05/2018 02:25 PM ALBUMIN 4.0 01/05/2018 02:25 PM BILITOTAL 0.2 01/05/2018 02:25 PM ALKPHOS 100 01/05/2018 02:25 PM AST 15 01/05/2018 02:25 PM ALT 10 01/05/2018 02:25 PM ANIONGAP 15 01/05/2018 02:25 PM BCRATIO 19.8 12/02/2012 09:43 PM . ASSESSMENT: UTI uncomplicated without evidence of pyelonephritis PLAN: Treatment per orders - also push fluids, may use Pyridium OTC prn. Call or return to clinic prn if these symptoms worsen or fail to improve as anticipated. documented in this encounter Plan of Treatment Not on filedocumented as of this encounter Visit Diagnoses Diagnosis Acute cystitis without hematuria - Prim rolando Acute cystitis documented in this encounter Additional Health Concerns Assessment Noted Time A Hypertension Plan of Care has been documented for t pati patient 02/12/2017 12:54 PM CDT A Depression follow-up plan has been documented for jeremias krueger patient 03/14/2018 11:52 AM CDT documented as of this encounter
--- OUTSIDE RECORDS SUMMARY | 2020-03-24 13:49 | XMS REPORT | Encounter Summary ---
Author Author [facility] Organization [facility] Address Unknown Phone Unavailable Care Team Providers Care Adjunct Instructor Of Women'S Studies Name Role Phone Claus Couch MD PCP Encounter Details Care Team Description Date Type Department Claus Couch MD [address] [place] [address] 05/06/2018 Abstract [facility] Primar y Care [place] [address] [place] [address] Social History Date Tobacco Use [...]
--- OUTSIDE RECORDS SUMMARY | 2020-03-24 13:49 | XMS REPORT | Encounter Summary ---
Author Author [facility] Organization [facility] Address Unknown Phone Unavailable Care Team Providers Care Quality Compliance Coordinator Name Role Phone Claus Couch MD PCP Reason for Visit * Reason Comments Medication Refill Encounter Details Care Team Description Date Type Department Claus Couch MD [address] [place] [address] 04/26/2018 Refill [facility] Primar y Care [place] [address] [place] [address] Social History Date Tobacco Use [...]
--- OUTSIDE RECORDS SUMMARY | 2020-03-24 13:49 | XMS REPORT | Encounter Summary ---
Author Author [facility] Organization [facility] Address Unknown Phone Unavailable Care Team Providers Care Monogram Operator Name Role Phone Claus Couch MD PCP Reason for Visit * Reason Comments Medication Refill Encounter Details Care Team Description Date Type Department Claus Couch MD [address] [place] [address] 05/13/2018 Refill [facility] Primar y Care [place] [address] [place] [address] Social History Date Tobacco Use [...]
--- OUTSIDE RECORDS SUMMARY | 2020-03-24 13:49 | XMS REPORT | Encounter Summary ---
Author Author [facility] Organization [facility] Address Unknown Phone Unavailable Care Team Providers Care Sanforizer Name Role Phone Claus Couch MD PCP Reason for Visit * Reason Comments Elbow Pain Rt Elbow Pain-Celestone Inj Encounter Details Care Team Description Date Type Department Jona Doran, BODY FITTER [address] [place] [address] Right lateral epicondylitis (Primary Dx) 05/18/2018 Office Visit [facility] [address] [address] Social History Date Tobacco Use Types [...] Comments Vital Sign - - Blood Pressure - - Pulse - - Temperature - - Respiratory Rate - - Oxygen Saturation - - Inhaled Oxygen Concentration 68 kg (150 lb) 05/18/2018 11:04 AM CDT Weight 167.6 cm (5' 6") 05/18/2018 11:04 AM CDT Height 24.21 05/18/2018 11:04 AM CDT Body Mass Index documented in this encounter Progress Notes * Jona Doran, JONNATHAN - 05/18/2018 12:56 PM CDT Right lateral elbow pain no new injury He has had no radiating pain no neck problems He points to the lateral epicondyle Pain is reproduced with palpation of the lateral epicondyle and extension of the right wrist does reproduce his lateral epicondyle pain no swelling warmth eryth lian or ecchymosis Assessment right lateral epicondylitis Plan the right lateral epicondyle injected sterile technique and tolerated well aerosolized ethyl chloride used prior 9 mg of Celestone 1.5 cc quarter percent M arcaine sterile technique observed tolerated well we will plan to recheck him ba ck as needed documented in this encounter Plan of Treatment Not on filedocumented as of this encounter Visit Diagnoses Diagnosis Right lateral epicondylitis - Primary Lateral epicondylitis of elbow documented in this encounter Additional Health Concerns Assessment Noted Time A Hypertension Plan of Care has been documented for t he patient 02/12/2017 12:54 PM CDT A Depression follow-up plan has been documented for t he patient 03/14/2018 11:52 AM CDT documented as of this encounter
--- OUTSIDE RECORDS SUMMARY | 2020-03-24 13:49 | XMS REPORT | Encounter Summary ---
Author Author [facility] Organization [facility] Address Unknown Phone Unavailable Care Team Providers Care Research Neuropsychologist Name Role Phone Claus Couch MD PCP Encounter Details Care Team Description Date Type Department Jada Fernandez MD NO ADDRESS ON FILE Ftsc, Outpt Lab 05/20/2018 [facility] Outpatient Encounter Laboratory [address] [address] Social History Date Tobacco Use [...] Drop in both eyes 2 times daily. 05/13/2018 06/08/2018 oxyCODONE (OxyCONTIN) 20 Take 1 [...] Procedure Name Priority Date/Time Associated Diag nosis URINALYSIS WITH REFLEX Routine 05/20/2018 Urinary frequency CULTURE 10:28 AM CDT URINE CULTURE Routine 05/20/2018 Urinary frequen cy 10:28 AM CDT documented in this encounter Results * URINE CULTURE (05/20/2018 10:28 AM CDT) CULTURE Streptococcus group B (A) [facility] Comment: LABORATORY >= 100,000 cfu/mL [facility] Streptococcus group B Beta-Strep from lower UTI recommended empiric therapies: Penicillin or Ampicillin. Alternatively: Nitrofurantoin. Beta Streptococcus groups A, B, C, and G are predictably susceptible to ampicillin, penicillin, and cefazolin, but may be resistant to erythromycin and/or clindamycin. Specimen Urine Narrative Performed At REFERENCE LAB ACC #: [id number] [facility] LABORATOR Y [facility] Performing Organization Address City/State/Zipcode Ph one Number [facility] CLIA # [id number] DONNA Chao [id number] [facility] [address] [facility] LABORATORY CLIA # [id number] DON[place] hCao [address] [place] [address] [place] [address] * URINALYSIS WITH REFLEX CULTURE (05/20/2018 10:28 AM CDT) COLOR UA Yellow Pale to dark yellow [facility]ORATORY SERVICES - [place] CLARITY UA Cloudy (A) Clear [facility] [place] SPECIFIC 1.004 1.003 - 1.035 [facility] GRAVITY [facility] LABORATORY SERVICES - [place] PH UA 6.5 5.0 - 8.0 [facility] - [place] LEUKOCYTE 3+ (A) Negative [facility] ESTERASE [facility] LAB[facility]ATORY [facility] - [place] NITRITE UA Negative Negative [facility] [place] PROTEIN UA 2+ (A) Negative [facility] [place] GLUCOSE UA Negative Negative [facility] [place] KETONES UA Negative Negative [facility] [place] UROBILINOGEN UA <2.0 <2.0 mg/dL [facility] [place] BILIRUBIN UA Negative Negative [facility] [place] BLOOD UA 1+ (A) Negative [facility] [place] WBC UA >100 (A) 0 - 2 /hpf [facility]ORATORY [facility] [place] RBC UA 11-25 (A) 0 - 2 /hpf [facility] LABORATORY SERVICES - [place] BACTERIA UA 4+ (A) Negative /hpf [facility] - [place] WBC CLUMPS Present (A)Comment: 10/lpf Absent [facility] [place]helle [place] Specimen Urine Narrative Performed At Based on results, a urine culture has been reflexed. [facility] [employer] [facility] [place] Performing Organization Address City/State/[facility] Ph one Number [facility] LABORATORY SERVICES CLIA# [id number] [place] [address] - [place] [address] [facility] documented in this encounter Visit Diagnoses Diagnosis Urinary frequency documented in this encounter Additional Health Concerns Assessment Noted Time A Hypertension Plan of Care has been documented for jeremias krueger patient 02/12/2017 12:54 PM CDT A Depression follow-up plan has been documented for jeremias krueger patient 03/14/2018 11:52 AM CDT documented as of this encounter
--- OUTSIDE RECORDS SUMMARY | 2020-03-24 13:49 | XMS REPORT | Encounter Summary ---
Author Author [facility] Organization [facility] Address Unknown Phone Unavailable Care Team Providers Care Teaching Pastor Name Role Phone Claus Couch MD PCP Reason for Visit * Reason Comments Shoulder Pain Rt Shoulder Pain/Ref Dr.Gug fairchild for Celestone Inj Encounter Details Care Team Description Date Type Department Jona Doran APRN [address] [place] [address] Complete tear of right rotator cuff (Farhana sigrid Dx); Right rotator cuff tendonitis 04/28/2018 Office Visit [facility] [address] [address] Social History Date Tobacco Use [...] Inhaled Oxygen Concentration 68 kg (150 lb) 04/28/2018 12:58 PM CDT Weight 167.6 cm (5' 6") 04/28/2018 12:58 PM CDT Height 24.21 04/28/2018 12:58 PM CDT Body Mass Index documented in this encounter Progress Notes * Jona Doran APRN - 04/28/2018 4:07 PM CDT Follow-up right shoulder pain recurrence is here for an injection no new injury He has known rotator cuff tear right upper extremity radiologically humeral head acromial articulation Using posterior sterile technique the right glenohumeral joint injected 12 mg of Celestone 2 cc quarter percent Marcaine tolerated well we will plan to recheck him back he would like right elbow and knee injections he is diabetic we will do one at a time documented in this encounter Plan of Treatment Not on filedocumented as of this encounter Visit Diagnoses Diagnosis Complete tear of right rotator cuff - P rimary Right rotator cuff tendonitis documented in this encounter Additional Health Concerns Assessment Noted Time A Hypertension Plan of Care has been documented for jeremias krueger patient 02/12/2017 12:54 PM CDT A Depression follow-up plan has been documented for jeremias krueger patient 03/14/2018 11:52 AM CDT documented as of this encounter
--- OUTSIDE RECORDS SUMMARY | 2020-03-24 13:49 | XMS REPORT | Encounter Summary ---
Author Author [facility] Organization [facility] Address Unknown Phone Unavailable Care Team Providers Care Automotive Tire Worker Name Role Phone Claus Couch MD PCP Reason for Visit * Auth/Cert Referred By Contact Referred To Contact Status Reason Specialty Diagnoses / Procedures [facility] [place] [address] [place] [address] Home Health Encounter Details Care Team Description Date Type Department Marissa Pitts RN SN - HOME VISIT 04/26/2018 Home Care Visit [facility] [address] [place] [address] Social History Date Tobacco Use [...] Reading Time Taken Comments Vital Sign 112/60 04/26/2018 3:50 PM CDT Blood Pressure 68 04/26/2018 3:50 PM CDT Pulse - - Temperature 16 04/26/2018 3:50 PM CDT Respiratory Rate 96% 04/26/2018 3:50 PM CDT Oxygen Saturation - - Inhaled [...] - SN - HOME VISIT Discipline - Assisted Status Goals Interventions Problem Descriptio Start Date n Active - 1 problem intervention scheduled/documented in this visit Medications Management 09/08/2017 Disciplines: of home Assisted medication s Active - 1 problem intervention scheduled/documented in this visit Nutritional concerns Nutritiona 09/08/2017 Disciplines: l intake Assisted concerns Active - 1 problem intervention scheduled/documented in this visit Physical Discomfort Alteration 09/08/2017 Disciplines: in comfort Assisted Active - 1 problem intervention scheduled/documented in this visit Pulse Oximetry Skilled 09/08/2017 Disciplines: assessment Assisted and monitoring of O2 saturation s. Active - 1 problem intervention scheduled/documented in this visit Skilled Observation and Skilled 09/08/2017 Assessment nursing Disciplines: observatio Assisted n and assessment . Variance Visit Notes Intervention Associated Status Problem/Go al Medication box Problem: Completed Description: Medication SN to fill medication box s every Wednesday. SN to instruct Caregiver and monitor for proper administration. Skilled assessment Problem: Completed nutrition Nutritiona Description: [...] Oximetry Monitor and record O2 saturation when sitting and at rest. Report satruations below 90. Evaluate the effectiveness of current therapy, and notify physician of the need for modifications to the treatment plan. Skilled observation and Problem: Completed assessment general Skilled assessment Observatio Description: n and SN to perform general Assessment assessment to include vital signs and temperature. General assessment of systems: pulmonary, cardiovascular, neurologic, gastrointestinal, endocrine, musculoskeletal, renal/urinary, integumentary and report any abnormalities or concerns to the physician. documented in this encounter Home Health Visit - Actions and Narratives Working with sister Baldev, Dr. Marina león's office, and [facility] to switch pt. to a pill pack system per sister's request. documented in this encounter
--- OUTSIDE RECORDS SUMMARY | 2020-03-24 13:49 | XMS REPORT | Encounter Summary ---
Author Author [facility] Organization [facility] Address Unknown Phone Unavailable Care Team Providers Care Circuit Manager Name Role Phone Claus Couch MD PCP Reason for Visit * Reason Comments Medication Refill Encounter Details Care Team Description Date Type Department Claus Couch MD [address] [place] [address] 04/29/2018 Refill [facility] Primar y Care [place] [address] [place] [address] Social History Date Tobacco Use [...]
--- OUTSIDE RECORDS SUMMARY | 2020-03-24 13:49 | XMS REPORT | Encounter Summary ---
Author Author [facility] Organization [facility] Address Unknown Phone Unavailable Care Team Providers Care Manager Manufacturing Name Role Phone Claus Couch MD PCP Encounter Details Care Team Description Date Type Department Jada Fernandez MD NO ADDRESS ON FILE Urinary frequency (Primary Dx) 05/20/2018 Orders Only [facility] Primar y Care [place] [address] [place] [address] Social History Date Tobacco Use [...] filedocumented as of this encounter Results * URINALYSIS WITH REFLEX CULTURE (05/20/2018 10:28 AM CDT) COLOR UA Yellow Pale to dark yellow [facility] [place] CLARITY UA Cloudy (A) Clear [facility] [place] SPECIFIC 1.004 1.003 - 1.035 [facility] [place] PH UA 6.5 5.0 - 8.0 [facility] [place] LEUKOCYTE 3+ (A) Negative [facility] [place] NITRITE UA Negative Negative [facility] [place] PROTEIN UA 2+ (A) Negative [facility] [place] GLUCOSE UA Negative Negative [facility] [place] KETONES UA Negative Negative [facility] [place] UROBILINOGEN UA <2.0 <2.0 mg/dL [facility] [place] BILIRUBIN UA Negative Negative [facility] [place] BLOOD UA 1+ (A) Negative [facility] [place] WBC UA >100 (A) 0 - 2 /hpf [facility] [place] RBC UA 11-25 (A) 0 - 2 /hpf [facility] [place] BACTERIA UA 4+ (A) Negative /hpf [facility] [place] WBC CLUMPS Present (A)Comment: 09-01/lpf Absent [facility] [place] Specimen Urine Narrative Performed At Based on results, a urine culture has been reflexed. [facility] [place] Performing Organization Address City/State/[facility] Ph one Number [facility] CLIA# [id number] [place] [address] - [place] [address] documented in this encounter Visit Diagnoses Diagnosis Urinary frequency - Primary documented in this encounter Additional Health Concerns Assessment Noted Time A Hypertension Plan of Care has been documented for jeremias krueger patient 02/12/2017 12:54 PM CDT A Depression follow-up plan has been documented for jeremias krueger patient 03/14/2018 11:52 AM CDT documented as of this encounter
--- OUTSIDE RECORDS SUMMARY | 2020-03-24 13:49 | XMS REPORT | Encounter Summary ---
Author Author [facility] Organization [facility] Address Unknown Phone Unavailable Care Team Providers Care Appliance Line Assembler Name Role Phone Claus Couch MD PCP Encounter Details Care Team Description Date Type Department Tej Carpenter, OD [address] [place], [place] [address] 04/28/2018 Orders Only [facility] Primar y Care [place] [address] [place] [address] Social History Date Tobacco Use [...] Procedure Name Priority Date/Time Associated Diag nosis HM DIABETES EYE EXAM Routine 03/29/2018 documented in this encounter Visit Diagnoses Not on filedocumented in this encounter Additional Health Concerns Assessment Noted Time A Hypertension Plan of Care has been documented for jeremias krueger patient 02/12/2017 12:54 PM CDT A Depression follow-up plan has been documented for jeremias kureger patient 03/14/2018 11:52 AM CDT documented as of this encounter
--- OUTSIDE RECORDS SUMMARY | 2020-03-24 13:50 | XMS REPORT | Encounter Summary ---
Author Author [facility] Address Unknown Phone Unavailable Care Team Providers Care Insurance Broker Name Role Phone Claus Couch MD PCP Reason for Visit * Auth/Cert Referred By Contact Referred To Contact Status Reason Specialty Diagnoses / Procedures [facility] [address] [place] [address] Home Health Encounter Details Care Team Description Date Type Department Marissa Pitts RN SN - HOME VISIT 04/12/2018 Home Care Visit [facility] [address] [place] [address] Social History Date Tobacco Use [...] Vital Sign - - Blood Pressure 68 04/12/2018 2:45 PM CDT Pulse - - Temperature 20 04/12/2018 2:45 PM CDT Respiratory Rate 96% 04/12/2018 2:45 PM CDT Oxygen Saturation - - [...] - SN - HOME VISIT Discipline - Prison Status Goals Interventions Problem Descriptio Start Date n Active - 2 problem interventions scheduled/documented in this visit Medications Management 09/08/2017 Disciplines: of home Prison medication s Active - 1 problem intervention scheduled/documented in this visit Nutritional concerns Nutritiona 09/08/2017 Disciplines: l intake Prison concerns Active - 1 problem intervention scheduled/documented in this visit Physical Discomfort Alteration 09/08/2017 Disciplines: in comfort Prison Active - 1 problem intervention scheduled/documented in this visit Skilled Observation and Skilled 09/08/2017 Assessment nursing Disciplines: observatio Prison n and assessment . Variance Visit Notes Intervention Associated Status Problem/Go al Medication box Problem: Completed Description: Medication SN to fill medication box s every Wednesday. SN to instruct Caregiver and monitor for proper administration. Skilled assessment Problem: Completed medications Medication Description: [...] plan of care. Skilled observation and Problem: Completed assessment general Skilled assessment Observatio Description: n and SN to perform general Assessment assessment to include vital signs and temperature. General assessment of systems: pulmonary, cardiovascular, neurologic, gastrointestinal, endocrine, musculoskeletal, renal/urinary, integumentary and report any abnormalities or concerns to the physician. documented in this encounter
--- OUTSIDE RECORDS SUMMARY | 2020-03-24 13:50 | XMS REPORT | Encounter Summary ---
Author Author [facility] Organization [facility] Address Unknown Phone Unavailable Care Team Providers Care Drafter Geological Name Role Phone Claus Couch MD PCP Reason for Visit * Reason Comments Medication Refill Encounter Details Care Team Description Date Type Department Claus Couch MD [address] [place] [address] 03/30/2018 Refill [facility] Primar y Care [place] [address] [place] [address] Social History Date Tobacco Use [...]
--- OUTSIDE RECORDS SUMMARY | 2020-03-24 13:50 | XMS REPORT | Encounter Summary ---
Author Author [facility] Organization [facility] Address Unknown Phone Unavailable Care Team Providers Care Engineering Technologist Name Role Phone Claus Couch MD PCP Reason for Visit * Reason Comments Medication Refill Encounter Details Care Team Description Date Type Department Claus Couch MD [address] [place] [address] 03/28/2018 Refill [facility] Primar y Care [place] [address] [place] [address] Social History Date Tobacco Use [...]
--- OUTSIDE RECORDS SUMMARY | 2020-03-24 13:50 | XMS REPORT | Encounter Summary ---
Author Author [facility] Organization [facility] Address Unknown Phone Unavailable Care Team Providers Care Network Designer Name Role Phone Claus Couch MD PCP Encounter Details Care Team Description Date Type Department Claus Couch MD [address] [place] [address] 04/20/2018 [facility] Encounter [address] [address] Social History Date Tobacco Use [...] Date End Date Medication Sig Dispensed Refills 03/10/2018 HYDROcodone-acetaminophen Take 1-2 60 Tablet 0 [...] Drop in both eyes 2 times daily. 04/13/2018 05/13/2018 oxyCODONE (OxyCONTIN) 20 Take 1 Tablet 60 Tablet 0 mg Controlled Release 12 (20 mg) by hour crush resistant mouth every tablet 12 hours. 03/30/2018 11/03/2018 OLANZapine (ZyPREXA) 2.5 Take 1 Tablet 30 Tablet 5 mg tablet (2.5 mg) by mouth daily at bedtime. 03/30/2018 11/03/2018 ramipril (ALTACE) 5 mg Take 1 30 Capsule 5 capsule Capsule (5 mg) by mouth daily. 03/30/2018 11/03/2018 FLUoxetine (PROzac) 20 mg Take 2 180 Capsule 1 capsule Capsules (40 mg) by mouth daily. 03/30/2018 04/26/2018 nystatin (NYSTOP) 100,000 Apply to 60 Gram 0 unit/gram powder affected area 2 times daily. 03/28/2018 06/13/2018 ondansetron (ZOFRAN ODT) Place 1 30 Tablet 2 4 mg Tablet, Rapid Tablet (4 mg) Dissolve under tongue every 8 hours as needed for Nausea/Emesis . 03/14/2018 11/03/2018 raNITIdine (ZANTAC) 150 Take 1 Tablet 60 Tablet 5 mg tablet (150 mg) by mouth 2 times daily. 02/23/2018 04/26/2018 phenytoin sodium Take 2 120 Capsule 2 (DILANTIN) 100 mg Capsules (200 extended release capsule mg) by mouth 2 times daily. 02/02/2018 04/26/2018 LORazepam (ATIVAN) 1 mg Take 1 Tablet 60 Tablet 2 tablet (1 mg) by mouth 2 times daily. 01/19/2018 11/03/2018 traZODone (DESYREL) 50 mg Take 1 Tab by 30 Tablet 5 tablet mouth daily at bedtime. 01/19/2018 04/29/2018 bethanechol (URECHOLINE) Take 1 Tablet 120 Tablet 3 25 mg tablet (25 mg) by mouth 4 times daily. 01/18/2018 11/03/2018 pioglitazone (ACTOS) 30 Take 1 Tab by 90 Tablet 1 mg tablet mouth daily. 01/10/2018 04/26/2018 temazepam (RESTORIL) 7.5 Take 1 30 Capsule 2 mg capsule Capsule (7.5 mg) by mouth nightly as needed for Insomnia. 10/20/2017 04/26/2018 ezetimibe (ZETIA) 10 mg Take 1 Tab by 30 Tablet 5 tablet mouth daily at bedtime. 11/24/2017 11/03/2018 clopidogrel (PLAVIX) 75 Take 1 Tab by 30 Tablet 5 mg Tablet mouth daily. 12/22/2017 11/03/2018 fenofibrate Take 1 Tablet 30 Tablet 11 nanocrystallized (TRICOR) (145 mg) by 145 mg tablet mouth daily WITH SUPPER 12/22/2017 11/03/2018 tamsulosin (FLOMAX) 0.4 Take 1 30 Capsule 11 mg capsule Capsule (0.4 mg) by mouth daily 30 MINUTES AFTER SUPPER. 11/09/2017 04/26/2018 Magnesium 250 mg Tablet Take 1 Tablet 0 by mouth every 12 hours. 10/20/2017 04/29/2018 simvastatin (ZOCOR) 40 mg TAKE ONE 90 Tablet 1 tablet TABLET (40MG) BY MOUTH EVERY DAY IN THE EVENING 07/15/2017 04/26/2018 nitroglycerin (NITROSTAT) DISSOLVE 1 25 Tablet 0.4 mg Tablet, Sublingual TABLET UNDER TONGUE EVERY 5 MINUTES NEEDED FOR CHEST KULDEEP N. DO NOT EXCEED 3 DOSES. 09/10/2010 04/26/2018 MULTIVITAMIN PO Take 1 Tab by 0 mouth daily with lunch. documented as of this encounter Plan of Treatment Not on filedocumented as of this encounter Procedures Comments Procedure Name Priority Date/Time Associated Diag nosis XR FOOT 3+ VW LEFT Routine 04/20/2018 Left foot p ain 3:32 PM CDT documented in this encounter Results * XR FOOT 3+ VW LEFT (04/20/2018 3:32 PM CDT) Specimen Impressions Performed At IMPRESSION: INTERFACE SYSTEM Negative for x-ray evidence to suggest osteomyelitis Narrative Performed At Exam: XR FOOT 3+ VW LEFT INTERFACE SYSTEM Date/Time of Exam: 04/20/2018 3:32 PM Reason For Exam: Left foot pain. COMPARISON: X-ray series November 19, 2016 FINDINGS: Three views There is generalized osseous deminerali zation, limiting visualization of the bone detail The previously demonstrated second digi t proximal phalanx fracture now appears healed No definite recent fracture is identifi ed. No definite orthopedic dislocation is i dentified. No definite retained radiopaque foreign body is identified. No abnormal periosteal reaction is appr eciated No focal lytic or blastic cortical bone destruction is shown Procedure Note Interface, Bong Aok Incoming Radiology Results - 04/20/2018 4:18 PM CDT Exam: XR FOOT 3+ VW LEFT Date/Time of Exam: 04/20/2018 3:32 PM Reason For Exam: Left foot pain. COMPARISON: X-ray series November 19, 2016 FINDINGS: Three views There is generalized osseous demineralization, limiting visualization of the bone detail The previously demonstrated second digit proximal phalanx fracture now appears healed No definite recent fracture is identified. No definite orthopedic dislocation is identified. No definite retained radiopaque foreign body is identified. No abnormal periosteal reaction is appreciated No focal lytic or blastic cortical bone destruction is shown IMPRESSION: Negative for x-ray evidence to suggest osteomyelitis Performing Organization Address City/State/Zipcode Ph one Number INTERFACE SYSTEM INTERFACE SYSTEM Refer to clinic/hospital department documented in this encounter Visit Diagnoses Diagnosis Left foot pain Pain in limb documented in this encounter Additional Health Concerns Assessment Noted Time A Hypertension Plan of Care has been documented for jeremias krueger patient 02/12/2017 12:54 PM CDT A Depression follow-up plan has been documented for jeremias krueger patient 03/14/2018 11:52 AM CDT documented as of this encounter
--- OUTSIDE RECORDS SUMMARY | 2020-03-24 13:50 | XMS REPORT | Encounter Summary ---
Author Author [facility] Organization [facility] Address Unknown Phone Unavailable Care Team Providers Care Multi Purpose Machine Operator Name Role Phone Claus Couch MD PCP Reason for Visit * Auth/Cert Referred By Contact Referred To Contact Status Reason Specialty Diagnoses / Procedures [facility] [place] [address] [place] [address] Home Health Encounter Details Care Team Description Date Type Department Marissa Pitts RN SN - HOME VISIT 03/14/2018 Home Care Visit [facility] [address] [place] [address] Social History Date Tobacco Use [...] Comments Vital Sign - - Blood Pressure 76 03/15/2018 5:55 AM CDT Pulse - - Temperature 20 03/15/2018 5:55 AM CDT Respiratory Rate - - Oxygen [...] - SN - HOME VISIT Discipline - Residential Status Goals Interventions Problem Descriptio Start Date n Active - 1 problem intervention scheduled/documented in this visit Home Safety Home 09/08/2017 Disciplines: safety Residential Active - 2 problem interventions scheduled/documented in this visit Medications Management 09/08/2017 Disciplines: of home Residential medication s Active - 1 problem intervention scheduled/documented in this visit Nutritional concerns Nutritiona 09/08/2017 Disciplines: l intake Residential concerns Active - 1 problem intervention scheduled/documented in this visit Physical Discomfort Alteration 09/08/2017 Disciplines: in comfort Residential Active - 1 problem intervention scheduled/documented in this visit Skilled Observation and Skilled 09/08/2017 Assessment nursing Disciplines: observatio Residential n and assessment . Variance Visit Notes Intervention Associated Status Problem/Go al Skilled assessment risk Problem: Completed for injury Home Description: Safety Assess patient's sensory perception, ability for ambulation and movement, disorientation or changes in mentation. Assess the home environment for potential hazards. Monitor ongoing for changes to patient Fall Risk Assessment. Medication box Problem: Completed Description: Medication SN [...]
--- OUTSIDE RECORDS SUMMARY | 2020-03-24 13:50 | XMS REPORT | Encounter Summary ---
Author Author [facility] Organization [facility] Address Unknown Phone Unavailable Care Team Providers Care Public Policy Mediator Name Role Phone Claus Couch MD PCP Reason for Visit * Auth/Cert Referred By Contact Referred To Contact Status Reason Specialty Diagnoses / Procedures [facility] Health [place] [address] [place] [address] Home Health Encounter Details Care Team Description Date Type Department Marissa Pitts RN SN - HOME VISIT 03/08/2018 Home Care Visit [facility] [address] [place] [address] Social History Date Tobacco Use [...] Reading Time Taken Comments Vital Sign 118/60 03/08/2018 11:15 AM CDT Blood Pressure 68 03/08/2018 11:15 AM CDT Pulse - - Temperature 22 03/08/2018 11:15 AM CDT Respiratory Rate 96% 03/08/2018 11:15 AM CDT Oxygen Saturation - - Inhaled [...] t pati patient 02/12/2017 12:54 PM CDT documented as of this encounter Home Health Visit - Care Plan Visit Type - SN - HOME VISIT Discipline - Senior Care Status Goals Interventions Problem Descriptio Start Date n Active - 2 problem interventions scheduled/documented in this visit Home Safety Home 09/08/2017 Disciplines: safety Senior Care Active - 1 problem intervention scheduled/documented in this visit Knowledge deficit on Infection 09/08/2017 preventing infection with prevention therapies . Disciplines: Senior Care Active - 2 problem interventions scheduled/documented in this visit Medications Management 09/08/2017 Disciplines: of home Senior Care medication s Active - 1 problem intervention scheduled/documented in this visit Nutritional concerns Nutritiona 09/08/2017 Disciplines: l intake Senior Care concerns Active - 1 problem intervention scheduled/documented in this visit Physical Discomfort Alteration 09/08/2017 Disciplines: in comfort Senior Care Active - 1 problem intervention scheduled/documented in this visit Pulse Oximetry Skilled 09/08/2017 Disciplines: assessment Senior Care and monitoring of O2 saturation s. Active - 1 problem intervention scheduled/documented in this visit Skilled Observation and Skilled 09/08/2017 Assessment nursing Disciplines: observatio Senior Care n and assessment . Variance Visit Notes [...] s/s of preventing infection. Assess Patient infection and Caregiver for with knowledge related to therapies infection prevention, how to recognize s/s of infection, and when to notify HH and/or physician. Medication box Problem: Completed Description: Medication SN [...]
--- OUTSIDE RECORDS SUMMARY | 2020-03-24 13:50 | XMS REPORT | Encounter Summary ---
Author Author [facility] Organization [facility] Address Unknown Phone Unavailable Care Team Providers Care Executive Producer Promos Name Role Phone Claus Couch MD PCP Reason for Visit * Reason Comments Medication Refill Encounter Details Care Team Description Date Type Department Claus Couch MD [address] [place] [address] 04/12/2018 Refill [facility] Primar y Care [place] [address] [place] [address] Social History Date Tobacco Use [...]
--- OUTSIDE RECORDS SUMMARY | 2020-03-24 13:50 | XMS REPORT | Encounter Summary ---
Author Author [facility] Organization [facility] Address Unknown Phone Unavailable Care Team Providers Care Hr Payroll Coordinator Name Role Phone Claus Couch MD PCP Reason for Visit * Reason Comments Medication Refill Encounter Details Care Team Description Date Type Department Claus Couch MD [address] [place] [address] 03/10/2018 Refill [facility] Primar y Care [place] [address] [place] [address] Social History Date Tobacco Use [...]
--- OUTSIDE RECORDS SUMMARY | 2020-03-24 13:50 | XMS REPORT | Encounter Summary ---
Author Author [facility] Organization [facility] Address Unknown Phone Unavailable Care Team Providers Care Bow Tacker Name Role Phone Claus Couch MD PCP Reason for Visit * Reason Comments Medication Refill Encounter Details Care Team Description Date Type Department Claus Cuoch MD [address] [place] [address] 03/18/2018 Refill [facility] Primar y Care [place] [address] [place] [address] Social History Date Tobacco Use [...]
--- OUTSIDE RECORDS SUMMARY | 2020-03-24 13:50 | XMS REPORT | Encounter Summary ---
Author Author [facility] Organization [facility] Address Unknown Phone Unavailable Care Team Providers Care Oyster Bed Worker Name Role Phone Claus Couch MD PCP Reason for Visit * Reason Comments Medication Refill Encounter Details Care Team Description Date Type Department Claus Couch MD [address] [place] [address] 03/28/2018 Refill [facility] Primar y Care [place] [address] [place] [address] Social History Date Tobacco Use [...]
--- OUTSIDE RECORDS SUMMARY | 2020-03-24 13:50 | XMS REPORT | Encounter Summary ---
Author Author [facility] Organization [facility] Address Unknown Phone Unavailable Care Team Providers Care Sod Cutter Name Role Phone Claus Couch MD PCP Encounter Details Care Team Description Date Type Department Claus Couch MD [address] [place] [address] 04/14/2018 Abstract [facility] Primar y Care [place] [address] [place] [address] Social History Date Tobacco Use [...]
--- OUTSIDE RECORDS SUMMARY | 2020-03-24 13:50 | XMS REPORT | Encounter Summary ---
Author Author [facility] Organization [facility] Address Unknown Phone Unavailable Care Team Providers Care Change Lead Name Role Phone Claus Couch MD PCP Reason for Referral * Eval and Treat (Routine) Referred By Contact Referred To Contact Status Reason Specialty Diagnoses / Procedures Claus Couch MD [address] [place] [address] Jona Doran, ENVIRONMENTAL MANAGER [address] [place] [address] Closed Orthopedic Diagnoses Surgery Acute pain of right shoulder Reason for Visit * Reason Comments Toe Pain Left Great Toe, Recent Toen ail Removal Shoulder Pain Right Shoulder Pain Encounter Details Care Team Description Date Type Department Claus Couch MD [address] [place] [address] Left foot pain (Primary Dx); Acute pain of right shoulder; Type 2 diabetes mellitus with diabetic neuropathy, without long-term current use of insulin 04/20/2018 Office Visit [facility] Primar Care [place] [address] [place] [address] Social History Date Tobacco Use [...] Reading Time Taken Comments Vital Sign 116/58 04/20/2018 3:07 PM CDT Blood Pressure - - Pulse - - Temperature - - Respiratory Rate - - Oxygen Saturation - - Inhaled Oxygen Concentration 68 kg (150 lb) 04/20/2018 3:07 PM CDT Weight 167.6 cm (5' 6") 04/20/2018 3:07 PM CDT Height 24.21 04/20/2018 3:07 PM CDT Body Mass Index documented in this encounter Progress Notes * Claus Couch MD - 04/21/2018 9:18 AM CDT Oliverio Dalton is a 67 y.o. male History of Present Illness Patient presents with: Toe Pain: Left Great Toe, Recent Toenail Removal patient had his toenail removed approximately 9 years ago has been having difficulties since that time in addit ion patient has broken the second toe as well as fractured the proximal part of his big toe all of this has been in the last 2 years Shoulder Pain: Right Shoulder Pain has been having pain in the right shoulder th is is been going on for some time patient does have a history of degenerative ch anges has not seen orthopedics in some time The history is provided by the patient. The medical record reflects the History of Present Illness as obtained by myself in discussion with the patient. Shoulder Pain Associated symptoms: no back pain, no fatigue and no fever Review of Systems Review of Systems Constitutional: [...] flank pain and hematuria. Musculoskeletal: Positive for gait problem and joint swelling. Negative for back pain. Skin: Negative for color change. Neurological: Negative for dizziness, syncope, facial asymmetry and numbness. Psychiatric/Behavioral: Negative for agitation and behavioral problems. Physical Exam Blood pressure 116/58, height 5' 6" (1.676 m), weight 68 kg (150 lb). Physical Exam Constitutional: He appears well-developed and well-nourished. HENT: Head: Normocephalic and atraumatic. Cardiovascular: Normal rate, regular rhythm, normal heart sounds and intact dist al pulses. Pulmonary/Chest: Effort normal and breath sounds normal. Abdominal: Soft. Bowel sounds are normal. Musculoskeletal: Right shoulder: He exhibits decreased range of motion and tenderness. Feet: ASSESSMENT: Encounter Diagnoses Name Primary? Left foot pain Yes Acute pain of right shoulder Type 2 diabetes mellitus with diabetic neuropathy, without long-term current use of insulin PLAN: Orders Placed This Encounter XR FOOT 3+ VW LEFT Solomon Doran We will have him see Solomon for possible injection in the shoulder X-ray of the foot today documented in this encounter Plan of Treatment Order Schedule Name Type Priority Associated Diag noses Ordered: 04/20/2018 AMB REFERRAL TO Outpatient Routine Acute pain of right ORTHOPEDIC SURGERY Referral shoulder documented as of this encounter Results * XR FOOT 3+ [...] encounter Visit Diagnoses Diagnosis Left foot pain - Primary Pain in limb Acute pain of right shoulder Type 2 diabetes mellitus with diabetic neuropathy, [...]
--- OUTSIDE RECORDS SUMMARY | 2020-03-24 13:50 | XMS REPORT | Encounter Summary ---
Author Author [facility] Organization [facility] Address Unknown Phone Unavailable Care Team Providers Care Felt Dyeing Machine Tender Name Role Phone Claus Couch MD PCP Reason for Visit * Reason Comments Medication Refill Encounter Details Care Team Description Date Type Department Claus Couch MD [address] [place] [address] 03/30/2018 Refill [facility] Primar y Care [place] [address] [place] [address] Social History Date Tobacco Use [...] encounter Miscellaneous Notes * Telephone Encounter - Ashtyn Thomas RN - 03/30/2018 2:56 PM CDT Per Nicolasa with [facility], the patient has a red, raised, macular rash to his scrotal, buttock, and thigh areas. Per Dr. Couch, nystatin powder. Rx s ent to [facility] pharmacy. documented in this encounter Plan of Treatment [...]
--- OUTSIDE RECORDS SUMMARY | 2020-03-24 13:50 | XMS REPORT | Encounter Summary ---
Author Author [facility] Organization [facility] Address Unknown Phone Unavailable Care Team Providers Care Splash Line Operator Name Role Phone Claus Couch MD PCP Encounter Details Care Team Description Date Type Department Claus Couch MD [address] [place] [address] 03/21/2018 Abstract [facility] Primar y Care [place] [address] [place] [address] Social History Date Tobacco Use [...]
--- OUTSIDE RECORDS SUMMARY | 2020-03-24 13:50 | XMS REPORT | Encounter Summary ---
Author Author [facility] Organization [facility] Address Unknown Phone Unavailable Care Team Providers Care Environmental Engineering Intern Name Role Phone Claus Couch MD PCP Reason for Visit * Auth/Cert Referred By Contact Referred To Contact Status Reason Specialty Diagnoses / Procedures [facility] [id number] [place] [address] Home Health Encounter Details Care Team Description Date Type Department Marissa Pitts RN SN - HOME VISIT 04/22/2018 Home Care Visit [facility] [address] [place] [address] Social History Date Tobacco Use [...] Vital Sign - - Blood Pressure 68 04/22/2018 3:00 PM CDT Pulse - - Temperature 20 04/22/2018 3:00 PM CDT Respiratory Rate 96% 04/22/2018 3:00 PM CDT Oxygen Saturation - - Inhaled [...] - SN - HOME VISIT Discipline - Snf Status Goals Interventions Problem Descriptio Start Date n Active - 2 problem interventions scheduled/documented in this visit Medications Management 09/08/2017 Disciplines: of home Snf medication s Active - 2 problem interventions scheduled/documented in this visit Nutritional concerns Nutritiona 09/08/2017 Disciplines: l intake Snf concerns Active - 1 problem intervention scheduled/documented in this visit Physical Discomfort Alteration 09/08/2017 Disciplines: in comfort Snf Active - 1 problem intervention scheduled/documented in this visit Pulse Oximetry Skilled 09/08/2017 Disciplines: assessment Snf and monitoring of O2 saturation s. Active - 1 problem intervention scheduled/documented in this visit Skilled Observation and Skilled 09/08/2017 Assessment nursing Disciplines: observatio Snf n and assessment . Variance Visit Notes [...] nutritional requirements. Instruct / reinforce ordered diet: Heart healthy. Skilled assessment pain Problem: Completed Description: Physical [...]
--- OUTSIDE RECORDS SUMMARY | 2020-03-24 13:50 | XMS REPORT | Encounter Summary ---
Author Author [facility] Organization [facility] Address Unknown Phone Unavailable Care Team Providers Care It Infrastructure Manager Name Role Phone Claus Couch MD PCP Reason for Visit * Auth/Cert Referred By Contact Referred To Contact Status Reason Specialty Diagnoses / Procedures [facility] [address] [place] [address] Home Health Encounter Details Care Team Description Date Type Department Marissa Pitts RN SN - HOME VISIT 03/29/2018 Home Care Visit [facility] [address] [place] [address] Social History Date Tobacco Use [...] Comments Vital Sign - - Blood Pressure 88 03/29/2018 2:30 PM CDT Pulse - - Temperature 20 03/29/2018 2:30 PM CDT Respiratory Rate 95% 03/29/2018 2:30 PM CDT Oxygen Saturation - - [...] - SN - HOME VISIT Discipline - Care Home Status Goals Interventions Problem Descriptio Start Date n Active - 2 problem interventions scheduled/documented in this visit Home Safety Home 09/08/2017 Disciplines: safety Care Home Active - 2 problem interventions scheduled/documented in this visit Knowledge deficit on Infection 09/08/2017 preventing infection with prevention therapies . Disciplines: Care Home Active - 1 problem intervention scheduled/documented in this visit Learning/Teaching Needs - Learning/t 09/08/2017 Pressure Ulcer eaching Disciplines: needs re: Care Home prevention and care of pressure ulcer Active - 2 problem interventions scheduled/documented in this visit Medications Management 09/08/2017 Disciplines: of home Care Home medication s Active - 1 problem intervention scheduled/documented in this visit Physical Discomfort Alteration 09/08/2017 Disciplines: in comfort Care Home Active - 1 problem intervention scheduled/documented in this visit Pulse Oximetry Skilled 09/08/2017 Disciplines: assessment Care Home and monitoring of O2 saturation s. Active - 1 problem intervention scheduled/documented in this visit Skilled Observation and Skilled 09/08/2017 Assessment nursing Disciplines: observatio Care Home n and assessment . Variance Visit [...] for changes to patient Fall Risk Assessment. Instruct infection Problem: Completed prevention Knowledge Description: deficit on Instruct Patient and preventing Caregiver in strategies infection to prevent with infection:Tenmile therapies precautions, avoid crowds and persons with known infections, staying current with immunizations, use of incentive spirometer, use of antibiotics, safe disposal of supplies, safe use and cleaning of equipment and encourage adequate diet and fluid intake. Skilled assessment risk Problem: Completed for infection Knowledge Description: deficit on Assess for s/s of preventing infection. Assess Patient infection and Caregiver for with knowledge related to therapies infection prevention, how to recognize s/s of infection, and when to notify HH and/or physician. Instruct prevention of Problem: Completed pressure ulcers Learning/T Description: eaching Teach patient/caregiver Needs - in methods to prevent Pressure pressure ulcers related Ulcer to mobility, positioning, hygiene, skin care. Teach characteristics of beginning stage (Stage 1). Instruct Patient and Caregiver in the use of pressure relieving devices/strategies: moisture barrier. Medication box Problem: Completed Description: Medication SN [...] in the plan of care. Skilled assessment pain Problem: Completed Description: Physical [...]
--- OUTSIDE RECORDS SUMMARY | 2020-03-24 13:50 | XMS REPORT | Encounter Summary ---
Author Author [facility] Organization [facility] Address Unknown Phone Unavailable Care Team Providers Care Ornamental Metal Erector Apprentice Name Role Phone Claus Couch MD PCP Reason for Visit * Reason Comments Medication Refill Encounter Details Care Team Description Date Type Department Claus Couch MD [address] [place] [address] 03/07/2018 Refill [facility] Primar y Care [place] [address] [place] [address] Social History Date Tobacco Use [...]
--- OUTSIDE RECORDS SUMMARY | 2020-03-24 13:50 | XMS REPORT | Encounter Summary ---
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 Role Phone Claus Couch MD PCP Reason for Visit * Reason Comments Durable Medical Equipment face to face for diabetic shoes with platform Encounter Details Care Team Description Date Type Department Claus Couch MD [address] [place] [address] Medicare annual wellness visit, subseque nt (Primary Dx); Seizure; Bipolar affective disorder, remission status unspecified; Type 2 diabetes mellitus with diabetic neuropathy, without long-term current use of insulin; Stable angina; Moderate episode of recurrent major depressive disorder; Essential hypertension; Mixed hyperlipidemia 03/14/2018 Office Visit [facility] [address] [place] [address] Social History Date Tobacco Use [...] Signs Reading Time Taken Comments Vital Sign 118/66 03/14/2018 9:49 AM CDT Blood Pressure - - Pulse - - Temperature - - Respiratory Rate - - Oxygen Saturation - - Inhaled Oxygen Concentration 69.4 kg (153 lb) 03/14/2018 9:49 AM CDT Weight 167.6 cm (5' 6") 03/14/2018 9:49 AM CDT Height 24.69 03/14/2018 9:49 AM CDT Body Mass Index documented in this encounter Progress Notes * Claus Couch MD - 03/14/2018 11:50 AM CDT MEDICARE ANNUAL WELLNESS Oliverio Dalton is a 67 y.o. male here today for his Durable Medical Equipment (face to face for diabetic shoes with platform) HEALTH RISK ASSESSMENT He has completed his Health Risk Assessment. I have reviewed this with the eugene ent. See scanned copy in chart. Areas of self-identified risk are addressed bel ow. In general, the patient feels they are in fair physical health. MEDICAL RECORD UPDATE Past Medical History: Diagnosis Date Anxiety Asthma [...] REPAIR performed by Beulah Zhou MD [place] [facility] [place]X HERNIA REPAIR 1988 And age [...] SURGICAL OTHER 07/11 Colonoscopy HX TURP 08/2003 CA COLONOSCOPY FLX DX W/COLLJ SPEC WHEN PFRMD 02/01/2009 COLONOSCOPY performed by BEULAH ZHOU at [facility] OR CA COLONOSCOPY FLX DX W/COLLJ SPEC WHEN PFRMD 12/28/2013 COLONOSCOPY performed by Beulah Zhou MD at [facility] [place] CA LAP,APPENDECTOMY 05/28/2012 APPENDECTOMY LAPAROSCOPIC performed by Beulah Zhou MD at [facility] [place] CA REPAIR UMBILICAL JOSE,5+Y/O,REDUC 05/28/2012 HERNIA UMBILICAL REPAIR performed by Beulah Zhou MD at [facility] [place] PSA 09/13 Family History Problem Relation Age of Onset Other Mother Blood pressure Diabetes Mother Respiratory Disease Mother Asthma Mother Other Sister Blood pressure Diabetes Sister Respiratory Disease Sister Heart Disease Sister Asthma Sister Lung Cancer Brother Seizures Brother Other Father "brain anuerysm" Healthy Daughter Heart Disease Son Healthy Daughter Healthy Daughter Healthy Son Healthy Son Healthy Son Healthy Son Current medications and allergies were reviewed and updated in computerized eugene ent record. [facility] [place] [facility] [place], [place] - [address] [id number] - [facility] [place], [place] - [address] [facility] [address] Care Providers: Patient Care Team: Claus Couch MD as PCP - General (Family Practice) No Patient Care Coordination Note on file. DEMENTIA SCREENING patient does not report concerns regarding cognitive or behavioral issues. Cogn itive ability was also observed and assessed throughout the exam and a MMS was n ot felt to be indicated. Mini-Mental Status Exam DEPRESSION SCREENING (QM) PHQ2: Positive: PHQ-2 score > 2 or PHQ-9 score > 9 PHQ-2 Total: 6 (03/14/18899) His antidepressant medication was reviewed EXAMINATION BP 118/66 | Ht 5' 6" (1.676 m) | Wt 69.4 kg (153 lb) | BMI 24.69 kg/m Blood Pressure BP Readings from Last 3 Encounters: 03/14/18 118/66 03/08/18 118/60 03/03/18 108/60 BMI POC Body mass index is 24.69 kg/m. Normal BMI range: 18 & older: > or = 18.5 and < 25 BMI within normal limits Visual Acuity Corrected: L 20/25 R 20/500 Nursing Visual Acuity Documentation: R Eye: (unable to read chard) (03/14/18899) L Eye: 20/25 (03/14/18899) Corrected or Uncorrected?: Corrected (03/14/18899) Hearing screen Degree of hearing loss: normal FUNCTIONAL ABILITY AND SAFETY Pain Assessment Are you having pain right now? Yes Rate your pain on a scale of 1 - 10: 7 Location of pain: everywhere Frequency of pain? persistent Character of pain? aching and stabbing Abuse screen/ and home safety evaluation Negative Fall Risk(QM) He has had two or more falls in the past year. Social Support/[place]: Patient resides with alone in independent living. Activities of Daily Living: Requires assistance with ambulation, bathing and hygiene, feeding, continence, g rooming, toileting and dressing Adult Nutritional Screen No nutritional concerns Tobacco Use(QM) reports that he has been smoking Cigarettes. He has a 80.00 pack-year smoking history. He has never used smokeless tobacco. He was counseled to discontinue tobacco use. Alcohol Use reports that he does not drink alcohol. Exercise/Other Exercise: three times a week END OF LIFE PLANNING Patient's End of life planning was discussed and questions answered. He has no advanced directive, not interested in further information. Current doc uments reviewed / provided as applicable. I have no objection to the patient's s tated End of Life planning. PREVENTIVE CARE GUIDELINES Written Screening Schedule for the next 5-10 years developed and provided to sebastian augustin. Preventive Care Recommendations for AVERAGE Risk Adult Males Recommended Measure Frequency Strength Annual Exam / Wellness Yearly Abdominal Aortic Aneurysm All males 65-75 with ANY smoking history B Lipid Screening All males >35 with additional cardiovascular risk factor / frequently suggested as every 5 years A Colon Cancer screening Colonoscopy every 10 years or Fecal Occult Blood testing yearly A Immunizations Influenza yearly Pneumococcal once after 65 Zostavax once after age 60 B Diabetes screening Screening recommended adults with BP >135/80 frequency is indeterminate B Blood Pressure screening Yearly A Health Maintenance Due Topic Date Due DIABETES ANNUAL RETINAL EXAM 1967 DIABETES ANNUAL FOOT EXAM 02/12/2018 ORDERS / REFERRALS / COUNSELING AND FOLLOW-UP Based upon these findings and review of any previous Wellness Visit recommendati ons the following treatment plan was recommended and discussed with the patient. No previously unaddressed health risks were detected. Recommended continuing cu rrent level of support, with repeat assessment in 1 year or sooner as needed. Orders Placed This Encounter CBC WITH DIFFERENTIAL (3 MONTHS X 1) LIPID PANEL (3 MONTHS X 1) CMP (3 MONTHS X 1) HEMOGLOBIN A1C (3 MONTHS X 1) MICROALBUMIN/CREATININE RATIO, RANDOM UR (3 MONTHS X 1) PHENYTOIN TOTAL metoclopramide HCl (REGLAN) 10 mg tablet raNITIdine (ZANTAC) 150 mg tablet diabetic shoes with inserts Education and counseling provided: Age appropriate based on today's review and evaluation Mr. Dalton voiced understanding and agreement with the treatment plan. He understa nds the importance of taking his medications and keeping follow-up appointments. All questions were answered. Fksko-Clixu-Upuhojp will be provided to patient upon check-out. ACUTE AND/OR CHRONIC ISSUES REQUIRING EVALUATION AND MANAGEMENT OUTSIDE THE [facility] VISIT Yes: Per E&M documentation: Oliverio Dalton is a 67 y.o. male [...] the above mentioned OBJECTIVE: Physical Exam: BP 118/66 | Ht 5' 6" (1.676 m) | Wt 69.4 kg (153 lb) | BMI 24.69 kg/m General appearance: alert, in no distress [...] rios or thighs, normal strength, normal tone Diabetic foot exam: Visual: no ulceration and callous balls bilateral Sensory:abnormal monofilament testing diffuse Pulses: normal bilaterally Lab Results Component Value Date/Time SODIUM 134 (L) 01/05/2018 02:25 PM POTASSIUM 4.1 01/05/2018 02:25 PM CHLORIDE 94 (L) 01/05/2018 02:25 PM CO2 25 01/05/2018 02:25 PM CALCIUM 9.3 01/05/2018 02:25 PM BUN 14 01/05/2018 02:25 PM CREATININE 0.62 (L) 01/05/2018 02:25 PM GLUCOSE 207 (H) 01/05/2018 02:25 PM TOTAL PROTEIN 7.0 01/05/2018 02:25 PM ALBUMIN 4.0 01/05/2018 02:25 PM BILIRUBIN TOTAL 0.2 01/05/2018 02:25 PM ALKALINE PHOSPHATASE 100 01/05/2018 02:25 PM AST 15 01/05/2018 02:25 PM ALT 10 01/05/2018 02:25 PM ANION GAP 15 01/05/2018 02:25 PM BUN/CREAT RATIO 19.8 12/02/2012 09:43 PM CHOLESTEROL 139 09/24/2017 08:56 AM HDL 49 09/24/2017 08:56 AM LDL CALCULATED 58 09/24/2017 08:56 AM LDL CHOLESTEROL, DIRECT 125 12/10/2011 09:05 AM TRIGLYCERIDE 159 (H) 09/24/2017 08:56 AM HEMOGLOBIN A1C 6.3 (H) 01/05/2018 02:25 PM TSH 1.69 10/01/2006 05:40 AM ASSESSMENT: Encounter Diagnoses Name Primary? Seizure Bipolar affective disorder, remission status unspecified Type 2 diabetes mellitus with diabetic neuropathy, without long-term current use of insulin Stable angina Moderate episode of recurrent major depressive disorder Essential hypertension Mixed hyperlipidemia PLAN: Orders Placed This Encounter CBC WITH DIFFERENTIAL (3 MONTHS X 1) LIPID PANEL (3 MONTHS X 1) CMP (3 MONTHS X 1) HEMOGLOBIN A1C (3 MONTHS X 1) MICROALBUMIN/CREATININE RATIO, RANDOM UR (3 MONTHS X 1) PHENYTOIN TOTAL metoclopramide HCl (REGLAN) 10 mg tablet raNITIdine (ZANTAC) 150 mg tablet diabetic shoes with inserts follow up in 3 months current treatment plan is effective, no change in therapy reviewed medications and side effects in detail test results reviewed with patient and repeat labs ordered prior to next appoint ment reviewed diet, exercise and weight control cardiovascular risk and specific lipid/LDL goals reviewed recommended sodium restriction. documented in this encounter Plan of Treatment Not on filedocumented as of this encounter Results * HEMOGLOBIN A1C (06/22/2018 7:38 AM CDT) HEMOGLOBIN A1C 6.3 (H) 4.8 - 5.9 % [facility] [place] EST. AVG 134 mg/dL [facility] GLUCOSE, A1C [facility] [place] Specimen Blood Narrative Performed At B A1C INTERPRETATION [facility] NORMAL: <5.7% [facility] PRE-DIABETES: 5.7 - 6.4% [place] DIABETES: 6.5% OR GREATER Performing Organization Address City/State/Zipcode Ph one Number [facility] CLIA# [id number] [place] [address] - [place] [address] [facility] * COMPREHENSIVE METABOLIC PANEL (06/22/2018 7:38 AM CDT) [facility] SODIUM 134 (L) 136 - 145 mmol/L [facility] [place] POTASSIUM 4.4 3.5 - 5.1 mmol/L [facility] [place] CHLORIDE 96 (L) 98 - 107 mmol/L [facility] CO2 25 22 - 29 mmol/L [facility] CALCIUM 9.4 8.8 - 10.2 mg/dL [facility] BUN 12 8 - 23 mg/dL [facility] [place] CREATININE 0.66 (L) 0.67 - 1.17 mg/dL [facility] [place] GLUCOSE 185 (H) 74 - 99 mg/dL [facility] [place] TOTAL PROTEIN 7.1 6.6 - 8.7 g/dL [facility] [place] ALBUMIN 3.7 3.5 - 5.2 g/dL [facility] [place] BILIRUBIN TOTAL 0.2 <=1.2 mg/dL [facility] [place] ALKALINE 93 40 - 129 U/L [facility] PHOSPHATASE [facility] [place] AST 17 <=41 U/L [facility] [place] ALT 10 10 - 50 U/L [facility] [place] GFR >60 >=60 mL/min/1.73 sq [facility] Comment: meter LABORATORY eGFR has not been validated [facility] for use in the elderly (> [...] result. GFR, >60 >=60 mL/min/1.73 sq [facility] [place] [facility] [place] ANION GAP 13 4 - 20 mmol/L [facility] [place] Specimen Blood Performing Organization Address [facility] [place] Ph one Raza [facility] CLIA# [id number] [place] [address] [address] [place] [address] [place] [address] BLVD * LIPID PANEL (06/22/2018 7:38 AM CDT) CHOLESTEROL 121 <200 mg/dL [facility] [place] TRIGLYCERIDE 82 <150 mg/dL [facility] [place] HDL 51 40 - 59 mg/dL [facility] [place] LDL CALCULATED 54 <100 mg/dL [facility] [place] NON-HDL 70 <130 mg/dL [facility] CHOLESTEROL [facility] [place] Specimen Blood Narrative Performed At TOTAL CHOLESTEROL mg/dL [facility] Desirable <200 SERVICES - [facility] Borderline high 200-239 [place] High >=240 TRIGLYCERIDES [...] for Lipid Panels (NCEP/AMA) Performing Organization Address City/[facility] Ph one Raza [facility] CLIA# [id number] [place] [address] [address] * CBC WITH DIFFERENTIAL (06/22/2018 7:38 AM CDT) WBC 11.9 (H) 3.6 - 11.1 K/uL [facility] [place] RBC 4.10 (L) 4.49 - 5.52 M/uL [facility] [place] HEMOGLOBIN 11.1 (L) 13.3 - 16.5 g/dL [facility] [place] HEMATOCRIT 33.8 (L) 40.7 - 48.9 % [facility] [place] MCV 82.4 (L) 82.7 - 97.1 fL [facility] [place] MCH 27.1 [...] NEUTROPHIL 9.14 (H) 1.54 - 7.18 K/uL [facility] [place] LYMPHOCYTE 1.73 0.69 - 3.61 K/uL [facility] [place] MONOCYTE 0.95 0.19 - 0.95 K/uL [facility] [place] EOSINOPHIL 0.03 0.00 - 0.44 K/uL [facility] [place] BASOPHILS 0.02 0.00 - 0.10 K/uL [facility] [place] IMMATURE 0.05 0.00 - 0.09 K/uL [facility] GRANULOCYTES [facility] [place] Specimen Blood Performing Organization Address City/State/Zipcode Ph one Number [facility] CLIA# [id number] [place] [address] [place] [address] [place] [address] BLVD documented in this encounter Visit Diagnoses Diagnosis Medicare annual wellness visit, subsequ ent - Primary Routine general medical examination at a health care facility Seizure Other convulsions Bipolar affective disorder, remission s tatus unspecified Type 2 diabetes mellitus with diabetic neuropathy, without long-term current use of insulin Stable angina Other and unspecified angina pectoris Moderate episode of recurrent major dep ressive disorder Essential hypertension Unspecified essential hypertension Mixed hyperlipidemia documented in this encounter Additional Health Concerns Assessment Noted Time A Hypertension Plan of Care has been documented for t pati patient 02/12/2017 12:54 PM CDT A Depression follow-up plan has been documented for jeremias krueger patient 03/14/2018 11:52 AM CDT documented as of this encounter
--- OUTSIDE RECORDS SUMMARY | 2020-03-24 13:51 | XMS REPORT | Encounter Summary ---
Author Author [facility] Organization [facility] Address Unknown Phone Unavailable Care Team Providers Care Machine Paint Mixer Name Role Phone Claus Couch MD PCP Reason for Referral * Outpatient Services (Routine) Referred By Contact Referred To Contact Status Reason Specialty Diagnoses / Procedures Karen Weiner DNP [address] [place], [place] [address]iPractice Group [facility] 201/056 [place]ao [phone] Closed Diagnoses Coronary artery disease involving [place] coronary artery of yurok heart without angina pectoris Essential hypertension Type 2 diabetes mellitus with diabetic neuropathy, without long-term current use of insulin Pre-op examination P rocedures NM PHARMACOLOGICAL STRESS TEST Reason for Visit * Outpatient Services (Routine) Referred By Contact Referred To Contact Status Reason Specialty Diagnoses / Procedures [facility] D[facility] [phone]/798 [place] [phone] Closed Diagnoses Coronary artery disease involving [place] coronary artery of [place] heart without angina pectoris Essential hypertension Type 2 diabetes mellitus with diabetic neuropathy, without long-term current use of insulin Pre-op examination P rocedures NM PHARMACOLOGICAL STRESS TEST Encounter Details Care Team Description Date Type Department Karen Weiner DNP [facility] 795/386 [place] [phone] 02/03/2018 [facility] F ort Encounter [facility] [address] [place] [phone] Social History Date Tobacco Use Types [...] Date End Date Medication Sig Dispensed Refills 01/05/2018 albuterol HFA 90 mcg Take 2 [...] Drop in both eyes 2 times daily. 02/02/2018 04/26/2018 LORazepam (ATIVAN) 1 mg Take 1 Tablet 60 Tablet 2 tablet (1 mg) by mouth 2 times daily. 01/19/2018 02/15/2018 ondansetron (ZOFRAN ODT) Place 1 30 Tablet 0 4 mg Tablet, Rapid Tablet (4 mg) Dissolve under tongue every 8 hours as needed for Nausea/Emesis . 01/19/2018 11/03/2018 traZODone (DESYREL) 50 mg Take 1 Tab by 30 Tablet 5 tablet mouth daily at bedtime. 01/19/2018 04/29/2018 bethanechol (URECHOLINE) Take 1 Tablet 120 Tablet 3 25 mg tablet (25 mg) by mouth 4 times daily. 01/19/2018 03/14/2018 raNITIdine (ZANTAC) 150 Take 1 Tablet 30 Tablet 5 mg tablet (150 mg) by mouth daily at bedtime. 01/18/2018 11/03/2018 pioglitazone (ACTOS) 30 Take 1 Tab by 90 Tablet 1 mg tablet mouth daily. 01/10/2018 04/26/2018 temazepam (RESTORIL) 7.5 Take 1 30 Capsule 2 mg capsule Capsule (7.5 mg) by mouth nightly as needed for Insomnia. 01/06/2018 02/22/2018 phenytoin sodium Take 2 120 Capsule 2 (DILANTIN) 100 mg Capsules (200 extended release capsule mg) by mouth 2 times daily. 01/05/2018 02/15/2018 oxyCODONE (OxyCONTIN) 20 Take 1 Tablet 60 Tablet 0 mg Controlled Release 12 (20 mg) by hour crush resistant mouth every tablet 12 hours. 10/05/2017 03/30/2018 OLANZapine (ZyPREXA) 2.5 Take 1 Tablet 30 Tablet 5 mg tablet (2.5 mg) by mouth daily at bedtime. 01/05/2018 03/30/2018 ramipril (ALTACE) 5 mg Take 1 30 Capsule 5 capsule Capsule (5 mg) by mouth daily. 01/05/2018 03/30/2018 FLUoxetine (PROzac) 20 mg TAKE 2 180 Capsule 1 capsule CAPSULES BY MOUTH EVERY DAY.. 10/20/2017 04/26/2018 ezetimibe (ZETIA) 10 mg Take [...] by mouth daily 30 MINUTES AFTER SUPPER. 11/24/2017 03/02/2018 clopidogrel (PLAVIX) 75 Take 1 Tab by 30 Tablet 5 mg Tablet mouth daily. 11/09/2017 04/26/2018 Magnesium 250 mg Tablet Take 1 Tablet 0 by mouth every 12 hours. 10/20/2017 04/29/2018 simvastatin (ZOCOR) 40 mg TAKE ONE 90 Tablet 1 tablet TABLET (40MG) BY MOUTH EVERY DAY IN THE EVENING 10/20/2017 03/02/2018 ezetimibe (ZETIA) 10 mg Take 1 Tab by 30 Tablet 5 tablet mouth daily at bedtime. 10/05/2017 03/02/2018 ramipril (ALTACE) 5 mg Take 1 30 Capsule 5 capsule Capsule (5 mg) by mouth daily. 10/05/2017 03/02/2018 OLANZapine (ZyPREXA) 2.5 Take 1 Tab by 30 Tablet 5 mg tablet mouth daily at bedtime. 07/15/2017 04/26/2018 nitroglycerin (NITROSTAT) DISSOLVE 1 25 Tablet 0.4 mg Tablet, Sublingual TABLET UNDER TONGUE EVERY 5 MINUTES NEEDED FOR CHEST KULDEEP N. DO NOT EXCEED 3 DOSES. 07/07/2017 03/14/2018 fluticasone (FLONASE) 50 Administer 2 16 Gram mcg/spray [place], Sprays in Suspension each nostril daily. 07/07/2017 03/02/2018 tamsulosin (FLOMAX) 0.4 TAKE ONE 30 Capsule 11 mg capsule CAPSULE BY MOUTH EVERY DAY 30 MINUTES AFTER SUPPER 07/07/2017 03/02/2018 fenofibrate Take 1 Tab by 30 Tablet 11 nanocrystallized (TRICOR) mouth daily 145 mg tablet with supper. 09/10/2010 04/26/2018 MULTIVITAMIN PO Take 1 Tab by 0 mouth daily with lunch. documented as of this encounter Progress Notes * Dewayne Null RN - 02/03/2018 9:16 AM CDT Patient received lexiscan with dr bernard at bedside. Patient felt short of air, chest pressure, and a "funny feeling" Resolved at end of test. Resting hr: 68 Resting b /p: 126/56 Target hr: 129 Max hr; 97 Max b/ p: 126/56 documented in this encounter Plan of Treatment Not on filedocumented as of this encounter Procedures Comments Procedure Name Priority Date/Time Associated Diag nosis NM PHARMACOLOGICAL STRESS Routine 02/03/2018 Fer nary artery disease TEST 9:13 AM CDT involving [place] co ronary artery of yurok heart without angina pectoris Essential hypertension Type 2 diabetes mellitus with diabetic neuropathy, without long-term current use of insulin Pre-op examination documented in this encounter Results * NM PHARMACOLOGICAL STRESS TEST (02/03/2018 9:13 AM CDT) Specimen Narrative Performed At [facility] LEXISCAN STRESS TEST: POCT Date of test: 02/03/2018 : 1950 The patient is a 67 beat old male prese nting today for Lexiscan stress test with Myoview cardiac imaging. The patient is having this test as part of evaluation in anticipation of surger y on his elbow. The patient denies any recent chest pain. He does have a h istory of coronary artery disease. The average of the last two lipid profi les in the electronic medical record shows a total cholesterol of 149 mg/dL, HDL cholesterol 57 mg/dL. The patient does smoke. Systolic blood pressure in the clinic on January 05, 2018 is 120 mmHg. The patient has the following medications listed in the electronic medical record: Ativa n, Zofran, Desyrel, Urecholine, Zantac, Actos, Restoril, Dilantin, Albu terol, OxyCONTIN, Altace, Prozac, Tri-cor, Flomax, Betamethasone, Plavix, magnesium, Zetia, Zocor, Zyprexa, Nitrostat, Flovent, Claritin, Imdur, Mi ralax, multivitamin and Betimol. Today, prior to Lexiscan injection, res ting heart rate is 72 beats per minute and resting blood pressure is 12 6/56 mmHg. Resting pretest EKG shows sinus rhythm, nonspecific T wave flattening in lateral limb and chest leads. Lexiscan was injected, fol lowed by Myoview imaging isotope. Heart rate increased after Lexiscan inj ection, reaching a maximum heart rate of 97 beats per minute. Blood pres sure decreased with a blood pressure of 107/52 mmHg at 5 minutes in to recovery phase. Heart rate at the end of recovery is 85 beats per min diamond with a blood pressure of 108/52 mmHg. The patient developed shortness o f breath immediately following Lexiscan injection, a weird feeling at 30 seconds into recovery. He noted pressure in his chest at 5.5 minutes in to recovery and after 7 minutes of recovery he also admitted to a headache . The weird feeling and shortness of breath had improved but persisted th rough recovery phase. Minimally sagging ST segments are seen in V6 duri ng recovery phase. Occasional premature ventricular contractions are identified during recovery phase. Abnormal ischemic type ST segment depre ssion of -1 mm or more is not identified on the tracings. SUMMARY: This 67 year old male patient is having Lexiscan stress test with Myoview cardiac imaging as part of evaluation i n anticipation of possible surgery on his elbow. Patient has a past medica l history of coronary artery disease and denies recent problems with chest pain. Today, resting heart rate is 72 beats p er minute and resting blood pressure is 126/56 mmHg. Resting pretest EKG shows sinus rhythm, nonspecific T wave changes. After Lexiscan injection, heart rate in creased to 97 beats per minute. Blood pressure decreased to 107/52 mmHg at 5 minutes into recovery. Heart rate at the end of recovery is 85 beats per minute with a blood pressure of 108/52 mmHg. The patient developed shortness of jess th, a weird feeling early in recovery phase, pressure in his chest t owards the end of recovery phase and a headache after ending the recover y phase monitoring. Symptoms of shortness of breath and the weird feeli ng had improved but persisted at the end of recovery. Occasional premature ventricular contra ctions are seen during recovery phase. EKG's are negative for abnormal ischemi c type ST segment depression of -1 mm or more. Results of Myoview imaging studies will be reported separately. Procedure Note David Bernard MD - 02/03/2018 10:33 AM CDT LEXISCAN STRESS TEST: Date of test: 02/03/2018 : 1950 The patient is a 67 beat old male presenting today for Lexiscan stress test with Myoview cardiac imaging. The patient is having this test as part of evaluation in anticipation of surgery on his elbow. The patient denies any recent chest pain. He does have a history of coronary artery disease. The average of the last two lipid profiles in the electronic medical record shows a total cholesterol of 149 mg/dL, HDL cholesterol 57 mg/dL. The patient does smoke. Systolic blood pressure in the clinic on January 05, 2018 is 120 mmHg. The patient has the following medications listed in the electronic medical record: Ativan, Zofran, Desyrel, Urecholine, Zantac, Actos, Restoril, Dilantin, Albuterol, OxyCONTIN, Altace, Prozac, Tri-cor, Flomax, Betamethasone, Plavix, magnesium, Zetia, Zocor, Zyprexa, Nitrostat, Flovent, Claritin, Imdur, Miralax, multivitamin and Betimol. Today, prior to Lexiscan injection, resting heart rate is 72 beats per minute and resting blood pressure is 126/56 mmHg. Resting pretest EKG shows sinus rhythm, nonspecific T wave flattening in lateral limb and chest leads. Lexiscan was injected, followed by Myoview imaging isotope. Heart rate increased after Lexiscan injection, reaching a maximum heart rate of 97 beats per minute. Blood pressure decreased with a blood pressure of 107/52 mmHg at 5 minutes into recovery phase. Heart rate at the end of recovery is 85 beats per minute with a blood pressure of 108/52 mmHg. The patient developed shortness of breath immed iately following Lexiscan injection, a weird feeling at 30 seconds into recovery. He noted pressure in his chest at 5.5 minutes into recovery and after 7 minutes of recovery he also admitted to a headache. The weird feeling and shortness of breath had improved but persisted through recovery phase. Minimally sagging ST segments are seen in V6 during recovery phase. Occasional premature ventricular contractions are identified during recovery phase. Abnormal ischemic type ST segment depression of -1 mm or more is not identified on the tracings. SUMMARY: This 67 year old male patient is having Lexiscan stress test with Myoview cardiac imaging as part of evaluation in anticipation of possible surgery on his elbow. Patient has a past medical history of coronary artery disease and denies recent problems with chest pain. Today, resting heart rate is 72 beats per minute and resting blood pressure is 126/56 mmHg. Resting pretest EKG shows sinus rhythm, nonspecific T wave changes. After Lexiscan injection, heart rate increased to 97 beats per minute. Blood pressure decreased to 107/52 mmHg at 5 minutes into recovery. Heart rate at the end of recovery is 85 beats per minute with a blood pressure of 108/52 mmHg. The patient developed shortness of breath, a weird feeling early in recovery phase, pressure in his chest towards the end of recovery phase and a headache after ending the recovery phase monitoring. Symptoms of shortness of breath and the weird feeling had improved but persisted at the end of recovery. Occasional premature ventricular contractions are seen during recovery phase. EKG's are negative for abnormal ischemic type ST segment depression of -1 mm or more. Results of Myoview imaging studies will be reported separately. Performing Organization Address City/State/Zipcode Ph one Number [facility] PO[place] #[id number] [place] [address] [place] [address] documented in this encounter Visit Diagnoses Diagnosis Coronary artery disease involving nativ e coronary artery of yurok heart without angina pectoris Essential hypertension Unspecified essential hypertension Type 2 diabetes mellitus with diabetic neuropathy, without long-term current use of insulin Pre-op examination Preoperative examination, unspecified documented in this encounter Administered Medications Action Date Dose Rate Site Medication Order MAR Action 02/03/2018 9:13 AM CDT 0.4 mg regadenoson (LEXISCAN) 0.4 mg/5 mL Given injection 0.4 mg, IV, INTRA-PROCEDURE ONCE, 1 dose, Starting Nancy 02/03/18 at 0810, Until Nancy 02/03/18 at 0913, Routine 02/03/2018 9:12 AM CDT 10 mL sodium chloride flush injection 10 mL Given 10 mL, IV, SEE ADMIN INSTRUCTIONS, Starting Nancy 02/03/18 at 0810, Until Wed02/04/18 at 0210, Routine documented in this encounter Additional Health Concerns Assessment Noted Time A Hypertension Plan of Care has been documented for t pati patient 02/12/2017 12:54 PM CDT documented as of this encounter
--- OUTSIDE RECORDS SUMMARY | 2020-03-24 13:51 | XMS REPORT | Encounter Summary ---
Author Author [facility] Organization [facility] Address Unknown Phone Unavailable Care Team Providers Care Security Tech Name Role Phone Claus Couch MD PCP Encounter Details Care Team Description Date Type Department Karen Weiner, DNP 100 [facility] [address] [place] [phone] 02/03/2018 [facility] F ort Encounter [facility] [address] [place] [address] Social History Date Tobacco Use Types [...] (FLONASE) 50 Administer 2 16 Gram mcg/spray [place], Sprays in Suspension each nostril daily. 07/07/2017 [...] Name Priority Date/Time Associated Diag nosis NM MYOCARD PERF IMAG Routine 02/03/2018 Coronary artery disease SPECT MULT 9:42 AM CDT involving [place] co ronary artery of [place] heart without angina pectoris Essential hypertension Type 2 diabetes mellitus with diabetic neuropathy, without long-term current use of insulin Pre-op examination documented in this encounter Results * NM MYOCARD PERF IMAG SPECT MULT (02/03/2018 9:42 AM CDT) Specimen Impressions Performed At Impression: INTERFACE SYSTEM 1. Small fixed defect, inferior wall. 2. Otherwise normal myocardial scan, SP ECT. No reversible myocardial ischemia demonstrated. 3. Mildly enlarged left ventricular dionicio mber with normal ejection fraction of 51%. [facility] protocol normal values: Left ventricular ejection fraction: Males >= 50%. Females >=43%. Left ventricular volumes: Males EDV 119 ml, ESV 55 ml. Females EDV 91 ml, ESV 40 ml. Narrative Performed At Myocardial Scan, Stress and Rest, SPECT. INTERFACE S YSTEM History: Coronary artery disease involv ing [place] coronary artery of [place] heart without angina pectoris, E ssential hypertension, Type 2 diabetes mellitus with diabetic neuropa thy, without long-term current use of insulin, Pre-op examination. Comparison: None available. Stress protocol: Lexiscan. SPECT rest and stress perfusion images of the myocardium were obtained following the intravenous injection of 13.6 mCi and 42.8 mCi of technetium 99m sestamibi. Subsequent ga roma stress functional images of the left ventricle and myocardium acqui red. Images show a small fixed defect within the inferior wall. There is a normal physiologic distribution of acti vity throughout the remaining left ventricular myocardium without oth er areas of significant reversibility or fixed defects. Left ventricular chamber size is mildly enlarged. End diastolic volume is 121 ml. End systolic volume of 59 ml. Gated images show a normal left ventricular ejection fracti on of 51%. Stroke volume of 62 ml. TID ratio unavailable. Procedure Note Interface, [facility] Incoming Radiology Results - 02/03/2018 10:27 AM CDT Myocardial Scan, Stress and Rest, SPECT. History: Coronary artery disease involving [place] coronary artery of [place] heart without angina pectoris, Essential hypertension, Type 2 diabetes mellitus with diabetic neuropathy, without long-term current use of insulin, Pre-op examination. Comparison: None available. Stress protocol: Lexiscan. SPECT rest and stress perfusion images of the myocardium were obtained following the intravenous injection of 13.6 mCi and 42.8 mCi of technetium 99m sestamibi. Subsequent gated stress functional images of the left ventricle and myocardium acquired. Images show a small fixed defect within the inferior wall. There is a normal physiologic distribution of activity throughout the remaining left ventricular myocardium without other areas of significant reversibility or fixed defects. Left ventricular chamber size is mildly enlarged. End diastolic volume is 121 ml. End systolic volume of 59 ml. Gated images show a normal left ventricular ejection fraction of 51%. Stroke volume of 62 ml. TID ratio unavailable. Impression: 1. Small fixed defect, inferior wall. 2. Otherwise normal myocardial scan, SPE CT. No reversible myocardial ischemia demonstrated. 3. Mildly enlarged left ventricular willie marisa with normal ejection fraction of 51%. [facility] protocol normal values: Left ventricular ejection fraction: Males >= 50%. Females >=43%. Left ventricular volumes: Males EDV 119 ml, ESV 55 ml. Females EDV 91 ml, ESV 40 ml. Performing Organization Address City/State/Zipcode Ph one Number INTERFACE SYSTEM INTERFACE SYSTEM Refer to clinic/hospital department documented in this encounter Visit Diagnoses Not on filedocumented in this encounter Additional Health Concerns Assessment Noted Time A Hypertension Plan of Care has been documented for t pati patient 02/12/2017 12:54 PM CDT documented as of this encounter
--- OUTSIDE RECORDS SUMMARY | 2020-03-24 13:51 | XMS REPORT | Encounter Summary ---
Author Author [facility] Organization [facility] Address Unknown Phone Unavailable Care Team Providers Care Warehouse Record Clerk Name Role Phone Claus Couch MD PCP Reason for Visit * Auth/Cert Referred By Contact Referred To Contact Status Reason Specialty Diagnoses / Procedures [facility] [address] [id number] [place] [address] Home Health Encounter Details Care Team Description Date Type Department Mel Miranda RN SN - HOME VISIT 02/25/2018 Home Care Visit [facility] [address] [place] [address] Social History Date Tobacco Use [...] Signs Reading Time Taken Comments Vital Sign 102/60 02/25/2018 1:26 PM CDT Blood Pressure 72 02/25/2018 1:26 PM CDT Pulse 36.2 C (97.2 F) 02/25/2018 1:26 PM CDT Temperature 18 02/25/2018 1:26 PM CDT Respiratory Rate 98% 02/25/2018 1:26 PM CDT Oxygen Saturation - - Inhaled [...] jeremias krueger patient 02/12/2017 12:54 PM CDT documented as of this encounter Home Health Visit - Care Plan Visit Type - SN - HOME VISIT Discipline - Mcc Status Goals Interventions Problem Descriptio Start Date n Active - 3 problem interventions scheduled/documented in this visit Medications Management 09/08/2017 Disciplines: of home Mcc medication s Active - 1 problem intervention scheduled/documented in this visit Physical Discomfort Alteration 09/08/2017 Disciplines: in comfort Mcc Active - 1 problem intervention scheduled/documented in this visit Pulse Oximetry Skilled 09/08/2017 Disciplines: assessment Mcc and monitoring of O2 saturation s. Active - 1 problem intervention scheduled/documented in this visit Skilled Observation and Skilled 09/08/2017 Assessment nursing Disciplines: observatio Mcc n and assessment . Variance Visit Notes Intervention Associated Status Problem/Go al Medication box Problem: Completed Description: Medication SN to fill medication box s every Wednesday. SN to instruct Caregiver and monitor for proper administration. Instruct medications Problem: Completed Description: Medication Instruct Caregiver in s medication administration, purpose, dosages, preparation, scheduling, side effects, food/drug interactions, and potential complications. Review medications each visit and update patient's copy of medication list as needed. Skilled assessment Problem: Completed medications Medication Description: [...] Home Health Visit - Actions and Narratives This RN received a phone call from care technician regarding patient's medications in the pill sales planner she verbalzies that she forgot to tell, Pao, the patient's primary nurse the orders she had received regarding patient's medication s before surgery. She asked that this Rn come look at pill planne. Patient's surgery is February h and he is suppose to stop taking plavix, multivitamins and other supplements 5 days before surgery . Patient is to stop taking oral diabetic medications 48 hours before surgery and is only to hav e his blood preesure pill and Dilantin the day of surgery. This RN looked through medication plann er and it appears the medications he is suppose to stop taking have already been removed. This RN took out all medications from the morning of surgery except his blood pressure pill and Dila ntin. Everything else was correct in medication sales planner. documented in this encounter
--- OUTSIDE RECORDS SUMMARY | 2020-03-24 13:51 | XMS REPORT | Encounter Summary ---
Author Author [facility] Organization [facility] Address Unknown Phone Unavailable Care Team Providers Care Certified Medicine Aide Name Role Phone Claus Couch MD PCP Reason for Visit * Auth/Cert Referred By Contact Referred To Contact Status Reason Specialty Diagnoses / Procedures [facility] Home Health [id number] [place] [address] Home Health Encounter Details Care Team Description Date Type Department Mel Miranda RN SN - OASIS RECERTIFICATION 03/02/2018 [facility] [address] [place] [address] Social History Date Tobacco Use [...] Signs Reading Time Taken Comments Vital Sign 100/54 03/02/2018 12:22 PM CDT Blood Pressure 68 03/02/2018 12:22 PM CDT Pulse 36.4 C (97.6 F) 03/02/2018 12:22 PM CDT Temperature 18 03/02/2018 12:22 PM CDT Respiratory Rate 95% 03/02/2018 12:22 PM CDT Oxygen Saturation - - Inhaled [...] t he patient 02/12/2017 12:54 PM CDT documented as of this encounter Home Health Visit - Care Plan Visit Type - SN - OASIS RECERT Discipline - Fdc Status Goals Interventions Problem Descriptio Start Date n Active - 2 problem interventions scheduled/documented in this visit Home Safety Home 09/08/2017 Disciplines: safety Fdc Active - 1 problem intervention scheduled/documented in this visit Learning/Teaching Needs - Learning/t 09/08/2017 Pressure Ulcer eaching Disciplines: needs re: Fdc prevention and care of pressure ulcer Active - 2 problem interventions scheduled/documented in this visit Medications Management 09/08/2017 Disciplines: of home Fdc medication s Active - 1 problem intervention scheduled/documented in this visit Physical Discomfort Alteration 09/08/2017 Disciplines: in comfort Fdc Active - 1 problem intervention scheduled/documented in this visit Pulse Oximetry Skilled 09/08/2017 Disciplines: assessment Fdc and monitoring of O2 saturation s. Active - 1 problem intervention scheduled/documented in this visit Skilled Observation and Skilled 09/08/2017 Assessment nursing Disciplines: observatio Fdc n and assessment . Variance Visit Notes Intervention Associated Status Problem/Go al Instructed patient on fire risks and oxygen safety Instruct home safety Problem: Completed Description: Home Instruct on safe use of Safety equipment, transfer techniques, and home modifications. Skilled assessment risk Problem: Completed for injury Home Description: Safety Assess patient's sensory perception, ability for ambulation and movement, disorientation or changes in mentation. Assess the home environment for potential hazards. Monitor ongoing for changes to patient Fall Risk Assessment. Instruct prevention of Problem: Completed pressure ulcers Learning/T Description: eaching Teach patient/caregiver Needs - in methods to prevent Pressure pressure ulcers related Ulcer to mobility, positioning, hygiene, skin care. Teach characteristics of beginning stage (Stage 1). Instruct Patient and Caregiver in the use of pressure relieving devices/strategies: moisture barrier. Medications reconciled with list and pt home medications completed.No discrepancies found (Pt able to take or Caregiver able to administer all medications without complications. Caregiver able to reorder medications without complications. High Risk Medication teaching completed on oxycodone with patient. All medications check for expiration no concerns noted Severe Medication Interactions concenrs noted and chart audit completed and severe medication interactions [...] for changes in the plan of care. Medication box Problem: Scheduled Description: Medication SN to fill medication box s every Wednesday. SN to instruct Caregiver and monitor for proper administration. Skilled assessment pain Problem: Completed Description: Physical [...] Home Health Visit - Actions and Narratives Oxygen safety teaching done including: Care must be taken when oxygen is used in the home to prevent fires. Oxygen causes flammable materials to ignite more easily and burn rapidly. Fires with oxygen present can quickly grow out of control. Do not smoke while wearing oxygen equipment. Do not allow others to smoke in your house. If you do smoke, turn your oxygen off for 10 minutes to allow high oxygen concentrations to leave you r hair and clothing, and then go outside in the open air to smoke. Do not use extension cords with concentrators. Store your back-up oxygen tanks in an upright position in a well-ventilated area. Jesse id fabrics that cause static and avoid petroleum products. Avoid cooking while wearing oxygen. Oxy gen teaching sheet given. Instructions given to patient and careg iver with verbalization of understanding. Oxygen Safety Observation Tank Storage in Rack or Lying on Side? Yes. "No Smoking" Sign Posted? Yes. Working Smoke Alarm? No., Intervention/ Education: given Fire Extinguisher Present? No., Interve ntion/Education: given Oxygen Flow Rate per Rx? Yes. Smoker Resides in Home? Yes., Intervent ion/Education: given Potential for Open Flame? Yes education given documented in this encounter
--- OUTSIDE RECORDS SUMMARY | 2020-03-24 13:51 | XMS REPORT | Encounter Summary ---
Author Author [facility] Organization [facility] Address Unknown Phone Unavailable Care Team Providers Care Novelty Printing Machine Operator Name Role Phone Claus Couch MD PCP Reason for Visit * Reason Comments Medication Refill Encounter Details Care Team Description Date Type Department Claus Couch MD [address] [place] [address] 02/15/2018 Refill [facility] Primar y Care [place] [address] [place] [address] Social History Date Tobacco Use [...]
--- OUTSIDE RECORDS SUMMARY | 2020-03-24 13:51 | XMS REPORT | Encounter Summary ---
Author Author [facility] Address Unknown Phone Unavailable Care Team Providers Care Safety Director Name Role Phone Claus Couch MD PCP Reason for Visit * Auth/Cert Referred By Contact Referred To Contact Status Reason Specialty Diagnoses / Procedures [facility] Home Health [place] [address] [place] [address] Home Health Encounter Details Care Team Description Date Type Department Marissa Pitts RN SN - HOME VISIT 02/22/2018 Home Care Visit [facility] Healt h [facility] [address] [place] [address] Social History Date Tobacco Use [...] Vital Sign - - Blood Pressure 80 02/22/2018 4:00 PM CDT Pulse - - Temperature 20 02/22/2018 4:00 PM CDT Respiratory Rate 96% 02/22/2018 4:00 PM CDT Oxygen Saturation - - Inhaled [...] - SN - HOME VISIT Discipline - Intermediate Status Goals Interventions Problem Descriptio Start Date n Active - 2 problem interventions scheduled/documented in this visit Home Safety Home 09/08/2017 Disciplines: safety Intermediate Active - 2 problem interventions scheduled/documented in this visit Knowledge deficit on Infection 09/08/2017 preventing infection with prevention therapies . Disciplines: Intermediate Active - 2 problem interventions scheduled/documented in this visit Medications Management 09/08/2017 Disciplines: of home Intermediate medication s Active - 2 problem interventions scheduled/documented in this visit Nutritional concerns Nutritiona 09/08/2017 Disciplines: l intake Intermediate concerns Active - 1 problem intervention scheduled/documented in this visit Physical Discomfort Alteration 09/08/2017 Disciplines: in comfort Intermediate Active - 1 problem intervention scheduled/documented in this visit Pulse Oximetry Skilled 09/08/2017 Disciplines: assessment Intermediate and monitoring of O2 saturation s. Active - 1 problem intervention scheduled/documented in this visit Skilled Observation and Skilled 09/08/2017 Assessment nursing Disciplines: observatio Intermediate n and assessment . Variance Visit Notes [...] Caregiver in strategies infection to prevent with infection:[place] therapies precautions, avoid crowds and persons with [...]
--- OUTSIDE RECORDS SUMMARY | 2020-03-24 13:51 | XMS REPORT | Encounter Summary ---
Author Author [facility] Organization [facility] Address Unknown Phone Unavailable Care Team Providers Care Head Loader Name Role Phone Clasu Couch MD PCP Reason for Visit * Reason Comments Medication Refill Encounter Details Care Team Description Date Type Department Claus Couch MD [address] [place] [address] 02/22/2018 Refill [facility] Primar y Care [place] [address] [place] [address] Social History Date Tobacco Use [...]
--- OUTSIDE RECORDS SUMMARY | 2020-03-24 13:51 | XMS REPORT | Encounter Summary ---
Author Author [facility] Organization [facility] Address Unknown Phone Unavailable Care Team Providers Care Furniture Mover Helper Name Role Phone Claus Couch MD PCP Reason for Visit * Auth/Cert Referred By Contact Referred To Contact Status Reason Specialty Diagnoses / Procedures [facility] Health [place] [address] [place] [address] Home Health Encounter Details Care Team Description Date Type Department Mel Miranda RN SN - HOME VISIT 03/03/2018 Home Care Visit [facility]alt [facility] [address] [place] [address] Social History Date Tobacco Use [...] Signs Reading Time Taken Comments Vital Sign 108/60 03/03/2018 1:09 PM CDT Blood Pressure 62 03/03/2018 1:09 PM CDT Pulse 36.6 C (97.9 F) 03/03/2018 1:09 PM CDT Temperature 18 03/03/2018 1:09 PM CDT Respiratory Rate 97% 03/03/2018 1:09 PM CDT Oxygen Saturation - - Inhaled [...] - SN - HOME VISIT Discipline - Correction Status Goals Interventions Problem Descriptio Start Date n Active - 2 problem interventions scheduled/documented in this visit Knowledge deficit on Infection 09/08/2017 preventing infection with prevention therapies . Disciplines: Correction Active - 3 problem interventions scheduled/documented in this visit Medications Management 09/08/2017 Disciplines: of home Correction medication s Active - 1 problem intervention scheduled/documented in this visit Physical Discomfort Alteration 09/08/2017 Disciplines: in comfort Correction Active - 1 problem intervention scheduled/documented in this visit Pulse Oximetry Skilled 09/08/2017 Disciplines: assessment Correction and monitoring of O2 saturation s. Active - 1 problem intervention scheduled/documented in this visit Skilled Observation and Skilled 09/08/2017 Assessment nursing Disciplines: observatio Correction n and assessment . Variance Visit Notes Intervention Associated Status Problem/Go al Instruct infection Problem: Completed prevention Knowledge Description: deficit on Instruct Patient and preventing Caregiver in strategies infection to prevent with infection:[place] therapies precautions, avoid crowds and persons with [...] and when to notify HH and/or physician. Filled new antibiotic in medication kit planner Medication box Problem: Completed Description: Medication SN to fill medication box s every Wednesday. SN to instruct Caregiver and monitor for proper administration. Instructed patient to finish full course of antibiotics. Instruct medications Problem: Completed Description: Medication Instruct [...]
--- OUTSIDE RECORDS SUMMARY | 2020-03-24 13:51 | XMS REPORT | Encounter Summary ---
Author Author [facility] Organization [facility] Address Unknown Phone Unavailable Care Team Providers Care Fox Farmer Name Role Phone Claus Couch MD PCP Reason for Visit * Reason Comments Constipation Encounter Details Care Team Description Date Type Department Claus Couch MD [address] [place] [address] Constipation 02/09/2018 Telephone [facility] Primar y Care [place] [address] [place] [address] Social History Date Tobacco Use [...] Miscellaneous Notes * Telephone Encounter - Nuris Miramontes - 02/09/2018 10:57 AM CDT Pao Pitts RN calls stating this patient is having a problem with consti pation. Family states DSS 1-2 times per day and [place] 3 times per week has bee n effective for him in the past and they would like an order for this for Jorge moralez Per Dr. Couch order given to Pao Pitts RN for DSS 1-2 times per da y and [place] 3 times weekly. documented in this encounter Plan of Treatment Not on filedocumented as of this encounter Visit Diagnoses Not on filedocumented in this encounter Additional Health Concerns Assessment Noted Time A Hypertension Plan of Care has been documented for t he patient 02/12/2017 12:54 PM CDT documented as of this encounter
--- OUTSIDE RECORDS SUMMARY | 2020-03-24 13:51 | XMS REPORT | Encounter Summary ---
Author Author [facility] Organization [facility] Address Unknown Phone Unavailable Care Team Providers Care Fishing Vessel Captain Name Role Phone Claus Couch MD PCP Encounter Details Care Team Description Date Type Department Karen Weiner, DNP [address] [facility] [address] [place] [address] 02/03/2018 [facility] F ort Encounter [facility] [address] [place] [address] Social History Date Tobacco Use [...] (FLONASE) 50 Administer 2 16 Gram mcg/spray [place], Sprays in Suspension each nostril daily. 07/07/2017 [...] disease SPECT MULT 9:42 AM CDT involving [place] co ronary artery of [place] heart without angina pectoris Essential hypertension Type [...] mber with normal ejection fraction of 51%. [facility] protocol normal values: Left ventricular ejection fraction: Males >= 50%. Females >=43%. Left ventricular volumes: Males EDV 119 ml, ESV 55 ml. Females EDV 91 ml, ESV 40 ml. Narrative Performed At Myocardial Scan, Stress and Rest, SPECT. INTERFACE S YSTEM History: Coronary artery disease involv ing [place] coronary artery of [place] heart without angina pectoris, E ssential hypertension, [...] ml. TID ratio unavailable. Procedure Note Interface, [facility] Incoming Radiology Results - 02/03/2018 10:27 AM CDT Myocardial Scan, Stress and Rest, SPECT. History: Coronary artery disease involving [place] coronary artery of [place] heart without angina pectoris, Essential hypertension, Type [...] marisa with normal ejection fraction of 51%. [facility] protocol normal values: Left ventricular ejection fraction: [...]
--- OUTSIDE RECORDS SUMMARY | 2020-03-24 13:51 | XMS REPORT | Encounter Summary ---
Author Author [facility] Organization [facility] Address Unknown Phone Unavailable Care Team Providers Care Radio Personality Name Role Phone Claus Couch MD PCP Reason for Visit * Reason Comments Medication Review Encounter Details Care Team Description Date Type Department Claus Couch MD [address] [place] [address] Medication Review 03/02/2018 Telephone [facility] Primar y Care [place] [address] [place] [address] Social History Date Tobacco Use [...] encounter Miscellaneous Notes * Telephone Encounter - Karine Jim - 03/02/2018 4:24 PM CDT Home health called request if the duplicate medications could be cleared up documented in this encounter Plan of Treatment Not on filedocumented as of this encounter Visit Diagnoses Not on filedocumented in this encounter Additional Health Concerns Assessment Noted Time A Hypertension Plan of Care has been documented for t he patient 02/12/2017 12:54 PM CDT documented as of this encounter
--- OUTSIDE RECORDS SUMMARY | 2020-03-24 13:51 | XMS REPORT | Encounter Summary ---
Author Author [facility] Organization [facility] Address Unknown Phone Unavailable Care Team Providers Care Hand Model Name Role Phone Claus Couch MD PCP Reason for Visit * Auth/Cert Referred By Contact Referred To Contact Status Reason Specialty Diagnoses / Procedures [facility] Home Health [address] [place] [address] Home Health Encounter Details Care Team Description Date Type Department Mel Miranda, RN CASE COMMUNICATION 03/02/2018 [facility] [address] [place] [address] Social History Date Tobacco Use [...]
--- OUTSIDE RECORDS SUMMARY | 2020-03-24 13:51 | XMS REPORT | Encounter Summary ---
Author [facility] Address Unknown Phone Unavailable Care Team Providers Care Deck Officer Name Role Phone Claus Couch MD PCP Reason for Visit * Auth/Cert Referred By Contact Referred To Contact Status Reason Specialty Diagnoses / Procedures [facility] Home Health [place] [address] [place] [address] Home Health Encounter Details Care Team Description Date Type Department Marissa Pitts RN SN - HOME VISIT 02/08/2018 Home Care Visit [facility]alt [facility] [address] [place] [address] Social History Date Tobacco Use [...] Vital Sign - - Blood Pressure 68 02/08/2018 3:15 PM CDT Pulse - - Temperature 20 02/08/2018 3:15 PM CDT Respiratory Rate 96% 02/08/2018 3:15 PM CDT Oxygen Saturation - - Inhaled [...] visit Home Safety Home 09/08/2017 Disciplines: safety Snf Active - 2 problem interventions scheduled/documented in this visit Knowledge deficit on Infection 09/08/2017 preventing infection with prevention therapies . Disciplines: Snf Active - 1 problem intervention scheduled/documented in this visit Learning/Teaching Needs - Learning/t 09/08/2017 Pressure Ulcer eaching Disciplines: needs re: Snf prevention and care of pressure ulcer Active - 2 problem interventions scheduled/documented in this visit Medications Management 09/08/2017 Disciplines: of home Snf medication s Active - 1 problem intervention [...] Caregiver in strategies infection to prevent with infection:[place] [facility] therapies precautions, avoid crowds and persons with [...]
--- OUTSIDE RECORDS SUMMARY | 2020-03-24 13:51 | XMS REPORT | Encounter Summary ---
Author Author [facility] Organization [facility] Address Unknown Phone Unavailable Care Team Providers Care Biofuels Processing Technician Name Role Phone Claus Couch MD PCP Encounter Details Care Team Description Date Type Department Claus Couch MD [address] [place] [address] 02/23/2018 Abstract [facility] Primar y Care [place] [address] [place] [address] Social History Date Tobacco Use [...]
--- OUTSIDE RECORDS SUMMARY | 2020-03-24 13:51 | XMS REPORT | Encounter Summary ---
Author [email or web address] Organization [email or web address] Address Unknown Phone Unavailable Care Team Providers Care Testing Analyst Name Role Phone Claus Couch MD PCP Reason for Visit * Auth/Cert Referred By Contact Referred To Contact Status Reason Specialty Diagnoses / Procedures [facility] Home Health [place] [address] [place] [address] Home Health Encounter Details Care Team Description Date Type Department Marissa Pitts RN SN - HOME VISIT 02/15/2018 Home Care Visit [facility] Healt h [facility] [address] [place] [address] Social History Date Tobacco Use [...] Comments Vital Sign - - Blood Pressure 60 02/15/2018 4:05 PM CDT Pulse - - Temperature 20 02/15/2018 4:05 PM CDT Respiratory Rate 95% 02/15/2018 4:05 PM CDT Oxygen Saturation - - Inhaled [...] - SN - HOME VISIT Discipline - Fdc Status Goals Interventions Problem Descriptio Start Date n Active - 2 problem interventions scheduled/documented in this visit Home Safety Home 09/08/2017 Disciplines: safety Fdc Active - 2 problem interventions scheduled/documented in this visit Knowledge deficit on Infection 09/08/2017 preventing infection with prevention therapies . Disciplines: Fdc Active - 1 problem intervention scheduled/documented in this visit Learning/Teaching Needs - Learning/t 09/08/2017 Pressure Ulcer eaching Disciplines: needs re: Fdc prevention and care of pressure ulcer Active - 2 problem interventions scheduled/documented in this visit Medications Management 09/08/2017 Disciplines: of home Fdc medication s Active - 2 problem interventions scheduled/documented in this visit Nutritional concerns Nutritiona 09/08/2017 Disciplines: l intake Fdc concerns Active - 1 problem intervention scheduled/documented [...] Caregiver in strategies infection to prevent with infection:[place] therapies precautions, avoid crowds and persons with [...] Home Health Visit - Actions and Narratives Orders recieved for ortho. procedure sc heduled for 4-24-18 for medication changes prior to procedure. documented in this encounter
--- OUTSIDE RECORDS SUMMARY | 2020-03-24 13:51 | XMS REPORT | Encounter Summary ---
Author Author [facility] Organization [facility] Address Unknown Phone Unavailable Care Team Providers Care Show Host Name Role Phone Claus Couch MD PCP Encounter Details Care Team Description Date Type Department Claus Couch MD [address] [place] [address] 02/25/2018 Abstract [facility] Primar y Care [place] [address] [place] [address] Social History Date Tobacco Use [...]
--- OUTSIDE RECORDS SUMMARY | 2020-03-24 13:52 | XMS REPORT | Encounter Summary ---
Author Author [facility] Organization [facility] Address Unknown Phone Unavailable Care Team Providers Care Manager Of Internal Name Role Phone Claus Couch MD PCP Reason for Visit * Reason Comments Medication Refill Encounter Details Care Team Description Date Type Department Claus Couch MD [address] [place] [address] 02/02/[address] [facility] Primar y Care [place] [address] [place] [address] Social History Date Tobacco Use [...]
--- OUTSIDE RECORDS SUMMARY | 2020-03-24 13:52 | XMS REPORT | Encounter Summary ---
Author Author [facility] Organization [facility] Address Unknown Phone Unavailable Care Team Providers Care Messenger Floorperson Name Role Phone Claus Couch MD PCP Reason for Visit * Reason Comments Medication Refill Encounter Details Care Team Description Date Type Department Claus Couch MD [address] [place] [address] 01/18/2018 Refill [facility] Primar y Care [place] [address] [place] [address] Social History Date [...]
--- OUTSIDE RECORDS SUMMARY | 2020-03-24 13:52 | XMS REPORT | Encounter Summary ---
Author Author [facility] Organization [facility] Address Unknown Phone Unavailable Care Team Providers Care Queen Producer Name Role Phone Claus Couch MD PCP Reason for Visit * Reason Comments Medication Refill Encounter Details Care Team Description Date Type Department Claus Couch MD [address] [place] [address] 01/08/2018 Refill [facility] Primar y Care [place] [address] [place] [address] Social History Date Tobacco Use [...]
--- OUTSIDE RECORDS SUMMARY | 2020-03-24 13:52 | XMS REPORT | Encounter Summary ---
Author Author [facility] Organization [facility] Address Unknown Phone Unavailable Care Team Providers Care Ornamental Brick Installer Name Role Phone Claus Couch MD PCP Reason for Visit * Reason Comments Medication Refill Encounter Details Care Team Description Date Type Department Claus Couch MD [address] [place] [address] 01/05/2018 Refill [facility] Primar y Care [place] [address] [place] [address] Social History Date Tobacco Use [...]
--- OUTSIDE RECORDS SUMMARY | 2020-03-24 13:52 | XMS REPORT | Encounter Summary ---
Author Author [facility] Organization [facility] Address Unknown Phone Unavailable Care Team Providers Care Music Theory Teacher Name Role Phone Claus Couch MD PCP Reason for Visit * Auth/Cert Referred By Contact Referred To Contact Status Reason Specialty Diagnoses / Procedures [facility] [id number] [place] [address] Home Health Encounter Details Care Team Description Date Type Department Marissa Pitts RN SN - HOME VISIT 01/31/2018 Home Care Visit [facility] [address] [place] [address] Social History Date Tobacco Use [...] Reading Time Taken Comments Vital Sign 112/60 01/31/2018 3:00 PM CDT Blood Pressure 68 01/31/2018 3:00 PM CDT Pulse - - Temperature 20 01/31/2018 3:00 PM CDT Respiratory Rate 96% 01/31/2018 3:00 PM CDT Oxygen Saturation - - [...] visit Home Safety Home 09/08/2017 Disciplines: safety Long-Term Active - 1 problem intervention scheduled/documented in this visit Learning/Teaching Needs - Learning/t 09/08/2017 Pressure Ulcer eaching Disciplines: needs re: Long-Term prevention and care of pressure ulcer Active - 2 problem interventions scheduled/documented in this visit Medications Management 09/08/2017 Disciplines: of home Long-Term medication s Active - 1 problem intervention scheduled/documented in this visit Nutritional concerns Nutritiona 09/08/2017 Disciplines: l intake Long-Term concerns Active - 1 problem intervention scheduled/documented in this visit Physical Discomfort Alteration 09/08/2017 Disciplines: in comfort Long-Term Active - 1 problem intervention scheduled/documented in this visit Pulse Oximetry Skilled 09/08/2017 Disciplines: assessment Long-Term and monitoring of O2 saturation s. Active - 1 problem intervention scheduled/documented in this visit Skilled Observation and Skilled 09/08/2017 Assessment nursing Disciplines: observatio Long-Term n and assessment . Variance Visit Notes [...] for changes to patient Fall Risk Assessment. Pt. reluctant to turn side to side. Further teaching provided regarding pressure points. Instruct prevention of Problem: Completed pressure ulcers [...] O2 saturation when sitting and at rest. Evaluate the effectiveness of current [...]
--- OUTSIDE RECORDS SUMMARY | 2020-03-24 13:52 | XMS REPORT | Encounter Summary ---
Author Author [facility] Organization [facility] Address Unknown Phone Unavailable Care Team Providers Care Veterinary Practice Manager Name Role Phone Claus Couch MD PCP Reason for Visit * Reason Comments Medication Refill Encounter Details Care Team Description Date Type Department Claus Couch MD [address] [place] [address] 01/06/2018 Refill [facility] Primar y Care [place] [address] [place] [address] Social History Date Tobacco Use [...]
--- OUTSIDE RECORDS SUMMARY | 2020-03-24 13:52 | XMS REPORT | Encounter Summary ---
Author Author [facility] Organization [facility] Address Unknown Phone Unavailable Care Team Providers Care Able Seaman Name Role Phone Claus Couch MD PCP Reason for Visit * Reason Comments Medication Refill Encounter Details Care Team Description Date Type Department Neyda Redmond MD [address] [place] [address] 01/05/2018 Refill [facility] Primar y Care [address] [address] Social History Date Tobacco Use [...]
--- OUTSIDE RECORDS SUMMARY | 2020-03-24 13:52 | XMS REPORT | Encounter Summary ---
Author Author [facility] Organization [facility] Address Unknown Phone Unavailable Care Team Providers Care Journey Lineman Name Role Phone Claus Couch MD PCP Encounter Details Care Team Description Date Type Department Claus Couch MD [address] [place] [address] 01/25/2018 Abstract [facility] Primar y Care [place] [address] [place] [address] Social History Date Tobacco Use [...]
--- OUTSIDE RECORDS SUMMARY | 2020-03-24 13:52 | XMS REPORT | Encounter Summary ---
Author Author [facility] Organization [facility] Address Unknown Phone Unavailable Care Team Providers Care Workday Manager Name Role Phone Claus Couch MD PCP Reason for Visit * Auth/Cert Referred By Contact Referred To Contact Status Reason Specialty Diagnoses / Procedures [facility] [place] [address] [place] [address] Home Health Encounter Details Care Team Description Date Type Department Marissa Pitts RN SN - HOME VISIT 01/18/2018 Home Care Visit [facility]alt [facility] [address] [place] [address] Social History Date Tobacco Use [...] Vital Sign - - Blood Pressure 80 01/18/2018 1:50 PM CDT Pulse - - Temperature 20 01/18/2018 1:50 PM CDT Respiratory Rate 96% 01/18/2018 1:50 PM CDT Oxygen Saturation - - Inhaled [...] - SN - HOME VISIT Discipline - [facility] Status Goals Interventions Problem Descriptio Start Date n Active - 2 problem interventions scheduled/documented in this visit Home Safety Home 09/08/2017 Disciplines: safety [facility] Active - 2 problem interventions scheduled/documented in this visit Knowledge deficit on Infection 09/08/2017 preventing infection with prevention therapies . Disciplines: [facility] Active - 1 problem intervention scheduled/documented in this visit Learning/Teaching Needs - Learning/t 09/08/2017 Pressure Ulcer eaching Disciplines: needs re: [facility] prevention and care of pressure ulcer Active - 2 problem interventions scheduled/documented in this visit Medications Management 09/08/2017 Disciplines: of home [facility] medication s Active - 2 problem interventions scheduled/documented in this visit Nutritional concerns Nutritiona 09/08/2017 Disciplines: l intake [facility] concerns Active - 1 problem intervention scheduled/documented in this visit Physical Discomfort Alteration 09/08/2017 Disciplines: in comfort [facility] Active - 1 problem intervention scheduled/documented in this visit Pulse Oximetry Skilled 09/08/2017 Disciplines: assessment [facility] and monitoring of O2 saturation s. Active - 1 problem intervention scheduled/documented in this visit Skilled Observation and Skilled 09/08/2017 Assessment nursing Disciplines: observatio [facility] n and assessment . Variance Visit Notes [...] Caregiver in strategies infection to prevent with infection:[place]ole therapies precautions, avoid crowds and persons with [...]
--- OUTSIDE RECORDS SUMMARY | 2020-03-24 13:52 | XMS REPORT | Encounter Summary ---
Author Author [facility] Organization [facility] Address Unknown Phone Unavailable Care Team Providers Care Estate Planning Counselor Name Role Phone Claus Couch MD PCP Encounter Details Care Team Description Date Type Department Karen Weiner, DNP [address] [facility] [phone] [place] [phone] 01/26/2018 Orders Only [facility] Primar y Care [place] [address] [place] [address] Social History Date Tobacco Use [...] Associated Diag nosis ECHO COMPLETE Routine 01/21/2018 documented in this encounter Results * ECHO COMPLETE (01/21/2018) Narrative Performed At This result has an attachment that is n ot available. Performing Organization Address City/State/Zipcode Ph one Number [facility] CLIA# [id number] [place], [place] [address] [address] [facility] documented in this encounter Visit Diagnoses Not on filedocumented in this encounter Additional Health Concerns Assessment Noted Time A Hypertension Plan of Care has been documented for t he patient 02/12/2017 12:54 PM CDT documented as of this encounter
--- OUTSIDE RECORDS SUMMARY | 2020-03-24 13:52 | XMS REPORT | Encounter Summary ---
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 Essential hypertension Type 2 diabetes mellitus with diabetic neuropathy, without long-term current use of insulin Pre-op examination P rocedures NM PHARMACOLOGICAL STRESS TEST * Outpatient Services (Routine) Referred By Contact Referred To Contact Status Reason Specialty Diagnoses / Procedures Karen Weiner DNP [address] [place] [address] [facility] [phone] [place] [phone] Closed Diagnoses 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 Essential hypertension Type 2 diabetes mellitus with diabetic neuropathy, without long-term current use of insulin Pre-op examination P rocedures NM MYOCARD PERF IMAG SPECT MULT Encounter Details Care Team Description Date Type Department Karen Weiner DNP [address] [place] [address] [phone] [place] [phone] 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 Small fixed defect, inferior wall. 2. Otherwise normal myocardial scan, SP ECT. No reversible myocardial ischemia demonstrated. 3. Mildly enlarged left ventricular dionicio mber with normal ejection fraction of 51%. [facility] protocol normal values: Left ventricular ejection fraction: Males >= 50%. Females >=43%. Left ventricular volumes: Males EDV 119 ml, ESV 55 ml. Females EDV 91 ml, ESV 40 ml. Narrative Performed At Myocardial Scan, Stress and Rest, SPECT. INTERFACE S TE History: Coronary artery disease involv ing grayling coronary artery of grayling heart without angina pectoris, E ssential hypertension, [...] ml. TID ratio unavailable. Procedure Note Interface, [facility] Incoming Radiology Results - 02/03/2018 10:27 AM CDT Myocardial Scan, Stress and Rest, SPECT. 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 [facility] protocol normal values: Left ventricular ejection fraction: Males >= 50%. Females >=43%. Left ventricular volumes: Males EDV 119 ml, ESV 55 ml. Females EDV 91 ml, ESV 40 ml. Performing Organization Address City/State/[facility] Ph one Number INTERFACE SYSTEM INTERFACE SYSTEM Refer to clinic/hospital department * NM PHARMACOLOGICAL STRESS TEST (02/03/2018 9:13 AM CDT) Specimen Narrative Performed At [facility] [place] STRESS TEST: POCT Date [...] Performing Organization Address City/State/Zipcode Ph one Number [facility] CLIA #[id number] [place] [address] [place] [address] documented in this encounter Visit Diagnoses Diagnosis Coronary artery disease involving nativ e coronary artery of grayling heart without angina pectoris - Primary Essential hypertension Unspecified essential hypertension Type 2 diabetes mellitus with diabetic neuropathy, without long-term current use of insulin Pre-op examination Preoperative examination, unspecified documented in this encounter Additional Health Concerns Assessment Noted Time A Hypertension Plan of Care has been documented for t pati patient 02/12/2017 12:54 PM CDT documented as of this encounter
--- OUTSIDE RECORDS SUMMARY | 2020-03-24 13:52 | XMS REPORT | Encounter Summary ---
Author Author [facility] Organization [facility] Address Unknown Phone Unavailable Care Team Providers Care Highway Patrol Officer Name Role Phone Claus Couch MD PCP Encounter Details Care Team Description Date Type Department Claus Couch MD [address] [place] [address] 01/14/2018 Abstract [facility] Primar y Care [place] [address] [place] [address] Social History Date Tobacco Use [...]
--- OUTSIDE RECORDS SUMMARY | 2020-03-24 13:52 | XMS REPORT | Encounter Summary ---
Author Author [facility] Organization [facility] Address Unknown Phone Unavailable Care Team Providers Care Outbound Sales Representative Name Role Phone Claus Couch MD PCP Reason for Visit * Reason Comments Medication Refill Encounter Details Care Team Description Date Type Department Claus Couch MD [address] [place] [address] 01/05/2018 Refill [facility] Primar y Care [place] [address] [place] [address] Social History Date Tobacco Use [...]
--- OUTSIDE RECORDS SUMMARY | 2020-03-24 13:52 | XMS REPORT | Encounter Summary ---
Author Author [facility] Organization [facility] Address Unknown Phone Unavailable Care Team Providers Care Wastewater Treatment Operator Name Role Phone Claus Couch MD PCP Reason for Visit * Reason Comments Medication Refill Encounter Details Care Team Description Date Type Department Claus Couch MD [address] [place] [address] 01/18/2018 Refill [facility] Primar y Care [place] [address] [place] [address] Social History Date Tobacco Use [...]
--- OUTSIDE RECORDS SUMMARY | 2020-03-24 13:52 | XMS REPORT | Encounter Summary ---
Author Author [facility] Organization [facility] Address Unknown Phone Unavailable Care Team Providers Care Cotton Broker Name Role Phone Claus Couch MD PCP Reason for Visit * Reason Comments Medication Refill Encounter Details Care Team Description Date Type Department Claus Couch MD [address] [place] [address] 01/19/2018 Refill [facility] Primar y Care [place] [address] [place] [address] Social History Date Tobacco Use [...]
--- OUTSIDE RECORDS SUMMARY | 2020-03-24 13:52 | XMS REPORT | Encounter Summary ---
Author Author [facility] Organization [facility] Address Unknown Phone Unavailable Care Team Providers Care Lamination Machine Operator Name Role Phone Claus Couch MD PCP Reason for Referral * Outpatient Services (Routine) Referred By Contact Referred To Contact Status Reason Specialty Diagnoses / Procedures Karen Weiner DNP [address] [place] [address] [phone] [place] [phone] Closed Diagnoses Coronary artery disease involving [place] coronary artery of [place] heart without angina pectoris Essential hypertension Type 2 diabetes mellitus with diabetic neuropathy, without long-term current use of insulin Pre-op examination P rocedures NM MYOCARD PERF IMAG SPECT MULT Reason for Visit * Outpatient Services (Routine) Referred By Contact Referred To Contact Status Reason Specialty Diagnoses / Procedures Karen Weiner DNP [address] [place] [address] Gift Card Combo [facility] [phone] [place] [phone] Closed Diagnoses Coronary artery disease involving [place] coronary artery of [place] heart without angina pectoris Essential hypertension Type 2 diabetes mellitus with diabetic neuropathy, without long-term current use of insulin Pre-op examination P rocedures NM MYOCARD PERF IMAG SPECT MULT Encounter Details Care Team Description Date Type Department Karen Weiner DNP [address] [place] [address] [phone] [place] [phone] 02/03/2018 [facility] F ort Encounter [facility] [address] [place] [address] Social History Date Tobacco Use Types [...] (FLONASE) 50 Administer 2 16 Gram mcg/spray [place], Sprays in Suspension each nostril daily. 07/07/2017 [...] disease SPECT MULT 9:42 AM CDT involving [place] co ronary artery of [place] heart without angina pectoris Essential hypertension Type [...] mber with normal ejection fraction of 51%. [facility] protocol normal values: Left ventricular ejection fraction: Males >= 50%. Females >=43%. Left ventricular volumes: Males EDV 119 ml, ESV 55 ml. Females EDV 91 ml, ESV 40 ml. Narrative Performed At Myocardial Scan, Stress and Rest, SPECT. INTERFACE S TE History: Coronary artery disease involv ing [place] coronary artery of [place] heart without angina pectoris, E ssential hypertension, [...] ml. TID ratio unavailable. Procedure Note Interface, [facility] Incoming Radiology Results - 02/03/2018 10:27 AM CDT Myocardial Scan, Stress and Rest, SPECT. History: Coronary artery disease involving [place] coronary artery of [place] heart without angina pectoris, Essential hypertension, Type [...] marisa with normal ejection fraction of 51%. [facility] protocol normal values: Left ventricular ejection fraction: Males >= 50%. Females >=43%. Left ventricular volumes: Males EDV 119 ml, ESV 55 ml. Females EDV 91 ml, ESV 40 ml. Performing Organization Address City/State/Zipcode Ph one Number INTERFACE SYSTEM INTERFACE SYSTEM Refer to clinic/hospital department documented in this encounter Visit Diagnoses Diagnosis Coronary artery disease involving nativ e coronary artery of [place] heart without angina pectoris Essential hypertension Unspecified [...]
[2020-03-24 13:53] LABS: HEMATOCRIT 33 % (40-54); HEMOGLOBIN 11.5 G/DL (13.3-17.7); MEAN CORPUSCULAR HEMOGLOBIN 28 PG (25-34); MEAN CORPUSCULAR HGB CONC 35 G/DL (32-36); MEAN CORPUSCULAR VOLUME 81 FL (80-99); PLATELET COUNT 366 10^3/uL (130-400); RED CELL DISTRIBUTION WIDTH 15.3 % (10.0-14.5); WHITE BLOOD COUNT 8.5 10^3/uL (4.3-11.0)
--- OUTSIDE RECORDS SUMMARY | 2020-03-24 13:53 | XMS REPORT | Encounter Summary ---
Author Author [facility] Organization [facility] Address Unknown Phone Unavailable Care Team Providers Care Chemical Operations And Training Name Role Phone Claus Couch MD PCP Reason for Visit * Auth/Cert Referred By Contact Referred To Contact Status Reason Specialty Diagnoses / Procedures [facility] Home Health [facility] [address] [place] [address] Home Health Encounter Details Care Team Description Date Type Department Marissa Pitts, RN CASE COMMUNICATION 01/04/2018 [facility] Visit [facility] [address] [place] [address] Social History Date Tobacco Use [...]
--- OUTSIDE RECORDS SUMMARY | 2020-03-24 13:53 | XMS REPORT | Encounter Summary ---
Author Author [facility] Organization [facility] Address Unknown Phone Unavailable Care Team Providers Care Pet Care Worker Name Role Phone Claus Couch MD PCP Encounter Details Care Team Description Date Type Department Claus Couch MD [address] [place] [address] [facility]2018 [facility] Outpatient Encounter Laboratory [address] [address] Social History Date Tobacco Use [...] Drop in both eyes 2 times daily. 01/05/2018 01/16/2018 metoclopramide HCl Take 1 Tablet 40 Tablet 0 (REGLAN) 10 mg tablet (10 mg) by mouth 4 times daily before meals and at bedtime for 10 days. 01/05/2018 01/18/2018 ondansetron (ZOFRAN ODT) Place 1 30 Tablet 0 4 mg Tablet, Rapid Tablet (4 mg) Dissolve under tongue every 8 hours as needed for Nausea/Emesis . 01/05/2018 02/15/2018 oxyCODONE (OxyCONTIN) 20 Take 1 [...] capsule Capsule (5 mg) by mouth daily. 07/21/2017 01/19/2018 FLUoxetine (PROzac) 20 mg TAKE 2 60 Capsule 5 capsule CAPSULES BY MOUTH EVERY DAY. 01/05/2018 03/30/2018 FLUoxetine (PROzac) 20 mg TAKE 2 180 Capsule 1 capsule CAPSULES BY MOUTH EVERY DAY.. 12/27/2017 02/02/2018 LORazepam (ATIVAN) 1 mg Take 1 Tablet 60 Tablet 2 tablet (1 mg) by mouth 2 times daily. 10/20/2017 04/26/2018 ezetimibe (ZETIA) 10 mg Take 1 Tab by 30 Tablet 5 tablet mouth daily at bedtime. 07/21/2017 01/18/2018 traZODone (DESYREL) 50 mg Take 1 Tab by 30 Tablet 5 tablet mouth daily at bedtime. 11/24/2017 11/03/2018 clopidogrel (PLAVIX) 75 Take 1 Tab by 30 Tablet 5 mg Tablet mouth daily. 12/22/2017 11/03/2018 fenofibrate Take 1 Tablet 30 Tablet 11 nanocrystallized (TRICOR) (145 mg) by 145 mg tablet mouth daily WITH SUPPER 12/22/2017 01/06/2018 phenytoin sodium Take 2 120 Capsule 2 (DILANTIN) 100 mg Capsules (200 extended release capsule mg) by mouth 2 times daily. 12/22/2017 01/19/2018 bethanechol (URECHOLINE) Take 1 Tablet 120 Tablet 3 25 mg tablet (25 mg) by mouth 4 times daily. 12/22/2017 11/03/2018 tamsulosin (FLOMAX) 0.4 Take 1 30 Capsule 11 mg capsule Capsule (0.4 mg) by mouth daily 30 MINUTES AFTER SUPPER. 12/22/2017 01/19/2018 raNITIdine (ZANTAC) 150 Take 1 Tablet 30 Tablet 5 mg tablet (150 mg) by mouth daily at bedtime. 11/24/2017 01/19/2018 bethanechol (URECHOLINE) TAKE ONE 120 Tablet 3 25 mg tablet TABLET BY MOUTH FOUR TIMES A DAY 11/24/2017 03/02/2018 clopidogrel (PLAVIX) 75 Take 1 [...] Tablet 5 tablet mouth daily at bedtime. 10/20/2017 02/02/2018 LORazepam (ATIVAN) 1 mg TAKE ONE 60 Tablet 2 tablet TABLET BY MOUTH 2 TIMES A DAY.. 10/05/2017 03/02/2018 ramipril (ALTACE) 5 mg Take 1 30 Capsule 5 capsule Capsule (5 mg) by mouth daily. 10/05/2017 03/02/2018 OLANZapine (ZyPREXA) 2.5 Take 1 Tab by 30 Tablet 5 mg tablet mouth daily at bedtime. 09/29/2017 01/06/2018 phenytoin sodium Take 2 120 Capsule 2 (DILANTIN) 100 mg Capsules (200 extended release capsule mg) by mouth 2 times daily. 09/24/2017 01/19/2018 raNITIdine (ZANTAC) 150 Take 1 Tablet 30 Tablet 5 mg tablet (150 mg) by mouth daily at bedtime. 07/21/2017 01/19/2018 traZODone (DESYREL) 50 mg Take 1 Tab by 30 Tablet 5 tablet mouth daily at bedtime.. 07/21/2017 01/08/2018 temazepam (RESTORIL) 7.5 Take 1 30 Capsule 2 mg capsule Capsule (7.5 mg) by mouth nightly as needed for Insomnia. 07/15/2017 04/26/2018 nitroglycerin (NITROSTAT) DISSOLVE 1 25 Tablet 0.4 mg Tablet, Sublingual TABLET UNDER TONGUE EVERY 5 MINUTES NEEDED FOR CHEST KULDEEP N. DO NOT EXCEED 3 DOSES. 07/07/2017 03/14/2018 fluticasone (FLONASE) 50 Administer 2 16 Gram mcg/spray [place], Sprays in Suspension each nostril daily. 07/07/2017 01/18/2018 pioglitazone (ACTOS) 30 Take 1 Tab by 90 Tablet 1 mg tablet mouth daily. 07/07/2017 03/02/2018 tamsulosin (FLOMAX) 0.4 TAKE [...] Associated Diag nosis URINALYSIS WITH REFLEX Routine 01/05/2018 Abdomin al pain, CULTURE 2:25 PM ASSAYER unspecified abdomin al location MICROALBUMIN/CREATININE Routine 01/05/2018 Type 2 diabetes mellitus RATIO, RANDOM UR 2:25 PM ASSAYER without complicatio n, without long-term current use of insulin CBC WITH DIFFERENTIAL Routine 01/05/2018 Abdomina l pain, 2:25 PM ASSAYER unspecified abdominal location LIPASE Routine 01/05/2018 Abdominal pain, 2:25 PM ASSAYER unspecified abdominal location HEMOGLOBIN A1C Routine 01/05/2018 Type 2 diabetes mellitus 2:25 PM ASSAYER without complication, without long-term current use of insulin AMYLASE Routine 01/05/2018 Abdominal pain, 2:25 PM ASSAYER unspecified abdominal location COMPREHENSIVE METABOLIC Routine 01/05/2018 Abdomi nal pain, PANEL 2:25 PM ASSAYER unspecified abdomin al location documented in this encounter Results * HEMOGLOBIN A1C (01/05/2018 2:25 PM ASSAYER) HEMOGLOBIN A1C 6.3 (H) 4.8 - 5.9 % [facility] - [place] EST. AVG 134 mg/dL [facility] GLUCOSE, A1C LABORATORY SERVICES - [place] Specimen Blood Performing Organization Address City[place]State[place] [place] one [place] [facility] CLIA# [id number] [place] [address] - [place] [address] [facility] * MICROALBUMIN/CREATININE RATIO, RANDOM UR (01/05/2018 2:25 PM ASSAYER) MICROALBUMIN, <1.2 No Reference Range [facility] URINE mg/dL LABORATORY SERVICES - [place] CREATININE, 25.2 (L) 40.0 - 278.0 mg/dL [facility] URINE Comment: LABORATORY Reference Range varies with [facility] fluid intake and diet. [place] Specimen Urine - Urine specimen obtained by clean catch procedure (specimen) Narrative Performed At Condition Microalbumin/Creat ratio [facility] LABORATORY S ERVICES - [place] Normal Males <17 [place] Normal Females <25 Microalbuminuria Males 17-299 Microalbuminuria Females 25-299 Overt proteinuria >=300 Unable to calculate urine microalbumin/ creatinine ratio because urine microalbumin result is outside of repor table range. Performing Organization Address [facility] CLIA# [id number] [place] [address] - [place] [address] [place] [address] * URINALYSIS WITH REFLEX CULTURE (01/05/2018 2:25 PM ASSAYER) COLOR UA Pale Yellow Pale to dark yellow [facility] [place] CLARITY UA Clear Clear [facility] [place] SPECIFIC 1.004 1.003 - 1.035 [facility] GRAVITY [facility] - [place] PH UA 6.5 5.0 - 8.0 [facility] [place] LEUKOCYTE Negative Negative [facility] ESTERASE [facility] - [place] NITRITE UA Negative Negative [facility] [place] PROTEIN UA Negative Negative [facility] [place] GLUCOSE UA Negative Negative [facility] [place] KETONES UA Negative Negative [facility] [place] UROBILINOGEN UA <2.0 <2.0 mg/dL [facility] [place] BILIRUBIN UA Negative Negative [facility] [place] BLOOD UA Negative Negative [facility] [place] WBC UA 0-2 0 - 2 /hpf [facility] [place] RBC UA 0-2 0 - 2 /hpf [facility] [place] BACTERIA UA Negative Negative /hpf [facility] [place] EPITHELIAL 0-5 0 - 5 /hpf [facility] CELLS, URINE LAB[facility]ATORY SERVICES - [place] Specimen Urine Performing Organization Address [facility] one [place] [facility] CLIA# [id number] [place] [address] - [place] [address] [place], [place] [address] * AMYLASE (01/05/2018 2:25 PM ASSAYER) AMYLASE 76 28 - 100 U/L [facility] [place] Specimen Blood Performing Organization Address [facility] CLIA# [id number] [place] [address] - [place] [address] [place] [address] * LIPASE (01/05/2018 2:25 PM ASSAYER) LIPASE 57 13 - 60 U/L [facility] - [place] Specimen Blood Performing Organization Address City/State/[facility] Ph one Number [facility] CLIA# [id number] [place] [address] - [place] [address] [facility] * COMPREHENSIVE METABOLIC PANEL (01/05/2018 2:25 PM ASSAYER) SODIUM 134 (L) 136 - 145 mmol/L [facility] [place] POTASSIUM 4.1 3.5 - 5.1 mmol/L [facility] [place] CHLORIDE 94 (L) 98 - 107 mmol/L [facility] [place] CO2 25 22 - 29 mmol/L [facility] [place] CALCIUM 9.3 8.8 - 10.2 mg/dL [facility] [place] BUN 14 8 - 23 mg/dL [facility] [place] CREATININE 0.62 (L) 0.67 - 1.17 mg/dL [facility] [place] GLUCOSE 207 (H) 70 - 100 mg/dL [facility] [place] TOTAL PROTEIN 7.0 6.6 - 8.7 g/dL [facility] [place] ALBUMIN 4.0 3.5 - 5.2 g/dL [facility] [place] BILIRUBIN TOTAL 0.2 <=1.2 mg/dL [facility] [place] ALKALINE 100 40 - 129 U/L [facility] PHOSPHATASE [facility] - [place] AST 15 <=41 U/L [facility] [place] ALT 10 10 - 50 U/L [facility] [place] GFR >60 >=60 mL/min/1.73 sq [facility] Comment: meter LABORATORY eGFR has not been validated [facility] for use in the elderly (> [...] GFR result. GFR, >60 >=60 mL/min/1.73 sq [facility] meter [facility] - [place] ANION GAP 15 4 - 20 mmol/L [facility] - [place] Specimen Blood Performing Organization Address City/State/Zipcode Ph one Number [facility] CLIA# [id number] [place] [address] - [place] [address] * CBC WITH DIFFERENTIAL (01/05/2018 2:25 PM ASSAYER) WBC 10.0 3.6 - 11.1 K/uL [facility] [place] RBC 4.72 4.49 - 5.52 M/uL [facility] [place] HEMOGLOBIN 11.9 (L) 13.3 - 16.5 g/dL [facility] - [place] HEMATOCRIT 36.3 (L) 40.7 - 48.9 % [facility] [place] MCV 76.9 (L) 82.7 - 97.1 fL [facility] [place] MCH 25.2 (L) 27.1 - 32.3 pg [facility] [place] MCHC 32.8 31.3 - 34.9 g/dL [facility] [place] RDW 16.9 (H) 11.5 - 14.7 % [facility] [place] RDW-STDEV 46.5 37.2 - 47.6 fL [facility] [place] PLATELETS 438 (H) 136 - 352 K/uL [facility] [place] MPV 8.0 (L) 8.6 - 11.8 fL [facility] - [place] NEUTROPHILS 69 44 - 74 % [facility] [place] LYMPHOCYTES 23 16 - 44 % [facility] [place] MONOCYTES 8 4 - 11 % [facility] [place] EOSINOPHILS 1 0 - 6 % [facility] [place] BASOPHILS 0 0 - 1 % [facility] [place] IMMATURE 0 0 - 1 % [facility] GRANULOCYTES [facility] - [place] NEUTROPHIL 6.83 1.54 - 7.18 K/uL [facility] ABSOLUTE [facility] [place] LYMPHOCYTE 2.25 0.69 - 3.61 K/uL [facility] ABSOLUTE [facility] [place] MONOCYTE 0.76 0.19 - 0.95 K/uL [facility]OLUTE [facility] [place] EOSINOPHIL 0.06 0.00 - 0.44 K/uL [facility] ABSOLUTE LABORATORY [facility] - [place] BASOPHILS 0.02 0.00 - 0.10 K/uL [facility] ABSOLUTE LABORATORY SERVICES - [place] IMMATURE 0.04 0.00 - 0.09 K/uL [facility] GRANULOCYTES LABORATORY ABSOLUTE SERVICES - [place] Specimen Blood Performing Organization Address City/State/Zipcode Ph one Number [facility] CLIA# [id number] [place] [address] - [place] [address] [place] [address] BLVD documented in this encounter Visit Diagnoses Diagnosis Abdominal pain, unspecified abdominal l ocation Type 2 diabetes mellitus without compli cation, without long-term current use of insulin documented in this encounter Additional Health Concerns Assessment Noted Time A Hypertension Plan of Care has been documented for t pati patient 02/12/2017 12:54 PM CDT documented as of this encounter
--- OUTSIDE RECORDS SUMMARY | 2020-03-24 13:53 | XMS REPORT | Encounter Summary ---
Author Author [facility] Organization [facility] Address Unknown Phone Unavailable Care Team Providers Care Windows Application Developer Name Role Phone Claus Couch MD PCP Reason for Visit * Auth/Cert Referred By Contact Referred To Contact Status Reason Specialty Diagnoses / Procedures [facility] [address] [id number] [place] [address] Home Health Encounter Details Care Team Description Date Type Department Sofia Bass RN SN - HOME VISIT 12/07/2017 Home Care Visit [facility] [address] [place] [address] Social History Date Tobacco Use [...] Signs Reading Time Taken Comments Vital Sign 122/68 12/07/2017 10:02 AM DERRICK BOAT OPERATOR Blood Pressure 90 12/07/2017 10:02 AM DERRICK BOAT OPERATOR Pulse 37.7 C (99.8 F) 12/07/2017 10:02 AM DERRICK BOAT OPERATOR Temperature 20 12/07/2017 10:02 AM DERRICK BOAT OPERATOR Respiratory Rate 98% 12/07/2017 10:02 AM DERRICK BOAT OPERATOR Oxygen Saturation - - Inhaled Oxygen Concentration [...] visit Medications Management 09/08/2017 Disciplines: of home Long Term medication s Active - 1 problem intervention scheduled/documented in this visit Physical Discomfort Alteration 09/08/2017 Disciplines: in comfort Long Term Active - 1 problem intervention scheduled/documented in this visit Pulse Oximetry Skilled 09/08/2017 Disciplines: assessment Long Term and monitoring of O2 saturation s. Active - 1 problem intervention scheduled/documented in this visit Skilled Observation and Skilled 09/08/2017 Assessment nursing Disciplines: observatio Long Term n and assessment . Variance Visit Notes [...] Home Health Visit - Actions and Narratives med office workforce planner filled x2 weeks documented in this encounter
--- OUTSIDE RECORDS SUMMARY | 2020-03-24 13:53 | XMS REPORT | Encounter Summary ---
Author Author [facility] Organization [facility] Address Unknown Phone Unavailable Care Team Providers Care Occupational Therapist Rehab Manager Name Role Phone Claus Couch MD PCP Encounter Details Care Team Description Date Type Department Claus Couch MD [address] [place] [address] 01/05/2018 [facility] Encounter [address] [address] Social History Date Tobacco Use [...] (FLONASE) 50 Administer 2 16 Gram mcg/spray [place], Sprays in Suspension each nostril daily. 07/07/2017 [...] Name Priority Date/Time Associated Diag nosis XR ABDOMEN ACUTE SERIES W Routine 01/05/2018 Abdo mary pain, CXR 2:26 PM LEAD ATG DEVELOPER unspecified abdomin al location documented in this encounter Results * XR ABDOMEN ACUTE SERIES W CXR (01/05/2018 2:26 PM LEAD ATG DEVELOPER) Specimen Impressions Performed At IMPRESSION: Nondilated gas containing colonic loops a nd INTERFACE SYSTEM fluid-containing small bowel loops with out evidence of obstruction. Narrative Performed At EXAMINATION: XR ABDOMEN ACUTE SERIES W CXR INTERFACE SYSTEM HISTORY: Male, 67 years old. Abdominal pain, unspecified abdominal location. COMPARISON: Chest radiographs 7 FINDINGS: Supine and upright AP views o f the abdomen and upright PA view of the chest are performed. Median sternotomy and coronary arterial bypass graft postoperative dionicio nges. No consolidation, pleural effusion or pneumothorax. Cardiac silho uette is normal in size. There are nondilated gas containing colonic l oops. Nondilated fluid-containing small bowel loops. No free intraperitoneal gas. Gas in the rectum. Calcifications in the re gion of the left kidney, inferior pole, possibly bowel contents. Surgical clips in the right hemiabdomen. Partially visualized pain on prosthesis and instrumented left proximal femoral fracture. Procedure Note Interface, [facility] [place] [facility] Incoming Radiology Results - 01/05/2018 2:32 PM LEAD ATG DEVELOPER EXAMINATION: XR ABDOMEN ACUTE SERIES W CXR HISTORY: Male, 67 years old. Abdominal pain, unspecified abdominal location. COMPARISON: Chest radiographs 10/26/2017 FINDINGS: Supine and upright AP views of the abdomen and upright PA view of the chest are performed. Median sternotomy and coronary arterial bypass graft postoperative changes. No consolidation, pleural effusion or pneumothorax. Cardiac silhouette is normal in size. There are nondilated gas containing colonic loops. Nondilated fluid-containing small bowel loops. No free intraperitoneal gas. Gas in the rectum. Calcifications in the region of the left kidney, inferior pole, possibly bowel contents. Surgical clips in the right hemiabdomen. Partially visualized pain on prosthesis and instrumented left proximal femoral fracture. IMPRESSION: Nondilated gas containing colonic loops and fluid-containing small bowel loops without evidence of obstruction. Performing Organization Address City/State/Zipcode Ph one Number INTERFACE SYSTEM INTERFACE SYSTEM Refer to clinic/hospital department documented in this encounter Visit Diagnoses Diagnosis Abdominal pain, unspecified abdominal l ocation documented in this encounter Additional Health Concerns Assessment Noted Time A Hypertension Plan of Care has been documented for t he patient 02/12/2017 12:54 PM CDT documented as of this encounter
--- OUTSIDE RECORDS SUMMARY | 2020-03-24 13:53 | XMS REPORT | Encounter Summary ---
Author Author [facility] Organization [facility] Address Unknown Phone Unavailable Care Team Providers Care Boatswain Mate Name Role Phone Claus Couch MD PCP Reason for Visit * Reason Comments Medication Refill Encounter Details Care Team Description Date Type Department Neyda Redmond MD [address] [place] [address] 12/23/2017 Refill [facility] [address] [address] Social History Date Tobacco Use [...]
--- OUTSIDE RECORDS SUMMARY | 2020-03-24 13:53 | XMS REPORT | Encounter Summary ---
Author Author [facility] Organization [facility] Address Unknown Phone Unavailable Care Team Providers Care Inflated Pad Buffer Name Role Phone Claus Couch MD PCP Encounter Details Care Team Description Date Type Department Jona Doran, MANAGER PHP [address] [place] [address] 11/30/2017 [facility] Se rv[facility] Encounter [place] [address] [place] [address] Social History Date Tobacco Use [...] Date End Date Medication Sig Dispensed Refills 08/04/2017 sennosides-docusate [The details 30 Tablet 5 [...] Drop in both eyes 2 times daily. 10/05/2017 03/30/2018 OLANZapine (ZyPREXA) 2.5 Take 1 Tablet 30 Tablet 5 mg tablet (2.5 mg) by mouth daily at bedtime. 07/21/2017 01/19/2018 FLUoxetine (PROzac) 20 mg TAKE 2 60 Capsule 5 capsule CAPSULES BY MOUTH EVERY DAY. 10/20/2017 04/26/2018 ezetimibe (ZETIA) 10 mg Take 1 Tab by 30 Tablet 5 tablet mouth daily at bedtime. 07/21/2017 01/18/2018 traZODone (DESYREL) 50 mg Take 1 Tab by 30 Tablet 5 tablet mouth daily at bedtime. 11/24/2017 11/03/2018 clopidogrel (PLAVIX) 75 Take 1 Tab by 30 Tablet 5 mg Tablet mouth daily. 11/24/2017 01/19/2018 bethanechol (URECHOLINE) TAKE ONE 120 Tablet 3 25 mg tablet TABLET BY MOUTH FOUR TIMES A DAY 11/24/2017 03/02/2018 clopidogrel (PLAVIX) 75 Take 1 Tab by 30 Tablet 5 mg Tablet mouth daily. 11/15/2017 12/21/2017 oxyCODONE (OxyCONTIN) 20 Take 1 Tablet 60 Tablet 0 mg Controlled Release 12 (20 mg) by hour crush resistant mouth every tablet 12 hours. 11/09/2017 04/26/2018 Magnesium 250 mg Tablet Take [...] by mouth nightly as needed for Insomnia. 07/21/2017 01/05/2018 FLUoxetine (PROzac) 20 mg TAKE 2 60 Capsule 5 capsule CAPSULES BY MOUTH EVERY DAY.. 07/15/2017 04/26/2018 nitroglycerin (NITROSTAT) DISSOLVE 1 25 Tablet 0.4 mg Tablet, Sublingual TABLET UNDER TONGUE EVERY 5 MINUTES NEEDED FOR CHEST KULDEEP N. DO NOT EXCEED 3 DOSES. 07/07/2017 03/14/2018 fluticasone (FLONASE) 50 Administer 2 16 Gram mcg/spray [place], Sprays in Suspension each nostril daily. 07/07/2017 01/18/2018 pioglitazone (ACTOS) 30 Take 1 Tab by 90 Tablet 1 mg tablet mouth daily. 07/07/2017 01/05/2018 PROAIR HFA 90 Take 2 Puffs 8.5 Gram 11 mcg/actuation inhaler by inhalation every 4 hours as needed for Shortness of Br eath. 07/07/2017 03/02/2018 tamsulosin (FLOMAX) 0.4 TAKE ONE [...] nosis XR HIP 2 OR 3 VIEWS LT Routine 11/30/2017 Leg paxton gth discrepancy 10:04 AM CROWN IRONER Left hip pain documented in this encounter Results * XR HIP 2 OR 3 VIEWS LT (11/30/2017 10:04 AM CROWN IRONER) Specimen Impressions Performed At Impression: Fraction of the base of the left femoral INTERFACE SYSTEM neck/intertrochanteric segment, interna lly fixed. Satisfactory alignment and position with interval he aling. Narrative Performed At Left hip, AP pelvis and lateral hip views. INTERFACE SYSTEM History: Leg length discrepancy. Leg pa in. Comparison: 07/23/2017, 04/16/2017. Fracture of the base of the left femora l neck/intertrochanteric segment internally fixed with long femo ral intramedullary tanvir and femoral neck screw. The alignment and p osition appears satisfactory. There is interval healing. Joint spac es preserved. No evidence of new fracture, dislocation or other sign ificant skeletal abnormality. Incidental, penile implant. Procedure Note [place], [facility] [place] Rad[place] Results - 11/30/2017 10:18 AM CROWN IRONER Left hip, AP pelvis and lateral hip views. History: Leg length discrepancy. Leg pain. Comparison: 07/23/2017, 04/16/2017. Fracture of the base of the left femoral neck/intertrochanteric segment internally fixed with long femoral intramedullary tanvir and femoral neck screw. The alignment and position appears satisfactory. There is interval healing. Joint spaces preserved. No evidence of new fracture, dislocation or other significant skeletal abnormality. Incidental, penile implant. Impression: Fraction of the base of the left femoral neck/intertrochanteric segment, internally fixed. Satisfactory alignment and position with interval healing. Performing Organization Address City/State/Zipcode Ph one Number INTERFACE SYSTEM INTERFACE SYSTEM Refer to clinic/hospital department documented in this encounter Visit Diagnoses Diagnosis Leg length discrepancy Unequal leg length (acquired) Left hip pain Pain in joint, pelvic region and thigh documented in this encounter Additional Health Concerns Assessment Noted Time A Hypertension Plan of Care has been documented for t pati patient 02/12/2017 12:54 PM CDT documented as of this encounter
--- OUTSIDE RECORDS SUMMARY | 2020-03-24 13:53 | XMS REPORT | Encounter Summary ---
Author Author [facility] Organization [facility] Address Unknown Phone Unavailable Care Team Providers Care Homicide Squad Captain Name Role Phone Claus Couch MD PCP Reason for Visit * Auth/Cert Referred By Contact Referred To Contact Status Reason Specialty Diagnoses / Procedures [facility] [id number] [place] [address] Home Health Encounter Details Care Team Description Date Type Department Marissa Pitts RN SN - OASIS RECERTIFICATION 01/04/2018 [facility] [address] [place] [address] Social History Date Tobacco Use [...] Signs Reading Time Taken Comments Vital Sign 138/80 01/04/2018 2:45 PM PRICER BAGGER Blood Pressure 76 01/04/2018 2:45 PM PRICER BAGGER Pulse - - Temperature 20 01/04/2018 2:45 PM PRICER BAGGER Respiratory Rate 96% 01/04/2018 2:45 PM PRICER BAGGER Oxygen Saturation - - Inhaled Oxygen Concentration [...] and care of pressure ulcer Active - 3 problem interventions scheduled/documented in this visit Medications Management 09/08/2017 Disciplines: of home Fdc medication s Active - 2 problem interventions scheduled/documented in this visit Nutritional concerns Nutritiona 09/08/2017 Disciplines: l intake Fdc concerns Active - 2 problem interventions scheduled/documented in this visit Physical Discomfort Alteration [...] Caregiver in strategies infection to prevent with infection:[place] therapies precautions, avoid crowds and persons with [...] for changes in the plan of care. HH Instruct Pain Relief Problem: Completed Techniques Physical Description: Discomfort Instruct Patient and Caregiver on medications and alternative strategies to relieve pain. Teach regarding medication usage, pain characteristics, exacerbating factors, and pain rating (before and after medication administration). Sn to obtain pulse ox Problem: Completed [...]
--- OUTSIDE RECORDS SUMMARY | 2020-03-24 13:53 | XMS REPORT | Encounter Summary ---
Author Author [facility] Organization [facility] Address Unknown Phone Unavailable Care Team Providers Care Forge Heater Name Role Phone Claus Couch MD PCP Reason for Visit * Reason Comments Medication Refill Encounter Details Care Team Description Date Type Department Claus Couch MD [address] [place] [address] 12/21/[address] [facility] [place] [address] [place] [address] Social History Date Tobacco Use [...]
--- OUTSIDE RECORDS SUMMARY | 2020-03-24 13:53 | XMS REPORT | Encounter Summary ---
Author Author [facility] Organization [facility] Address Unknown Phone Unavailable Care Team Providers Care Pill Coater Name Role Phone Claus Couch MD PCP Reason for Visit * Reason Comments Vomiting vomiting every day Encounter Details Care Team Description Date Type Department Claus Couch MD [address] [place] [address] Chronic bronchitis, unspecified chronic bronchitis type (Primary Dx); Stable angina; Moderate episode of recurrent major depressive disorder; Type 2 diabetes mellitus without complication, without long-term current use of insulin; Abdominal pain, unspecified abdominal location; Seizure disorder; Bipolar affective disorder, remission status unspecified 01/05/[address] [facility] [address] [place] [address] Social History Date Tobacco Use [...] Signs Reading Time Taken Comments Vital Sign 120/62 01/05/2018 1:57 PM INFORMATION SYSTEMS SECURITY DEVELOPER Blood Pressure - - Pulse 36.6 C (97.8 F) 01/05/2018 1:57 PM INFORMATION SYSTEMS SECURITY DEVELOPER Temperature - - Respiratory Rate - - Oxygen Saturation - - Inhaled Oxygen Concentration 66.7 kg (147 lb) 01/05/2018 1:57 PM INFORMATION SYSTEMS SECURITY DEVELOPER Weight 167.6 cm (5' 6") 01/05/2018 1:57 PM INFORMATION SYSTEMS SECURITY DEVELOPER Height 23.73 01/05/2018 1:57 PM INFORMATION SYSTEMS SECURITY DEVELOPER Body Mass Index documented in this encounter Progress Notes * Claus Couch MD - 01/06/2018 12:56 PM INFORMATION SYSTEMS SECURITY DEVELOPER Oliverio Dalton is a 67 y.o. male History of Present Illness HPI Chief Complaint Patient presents with Vomiting vomiting every day This has been for the last several week has been having increased pain in the st omach as well Review of Systems Review of Systems Constitutional: Negative for activity change, appetite change, chills, fatigue a nd fever. HENT: Negative for congestion, facial swelling, hearing loss, rhinorrhea and sne ezing. Eyes: Negative for discharge and itching. Respiratory: Negative for apnea, choking and chest tightness. Cardiovascular: Negative for chest pain and leg swelling. Gastrointestinal: Positive for abdominal pain and nausea. Negative for abdominal distention, diarrhea and vomiting. Genitourinary: Negative for difficulty urinating, flank pain and hematuria. Musculoskeletal: Negative for back pain. Skin: Negative for color change. Neurological: Negative for dizziness, syncope, facial asymmetry and numbness. Psychiatric/Behavioral: Negative for agitation and behavioral problems. Physical Exam Blood pressure 120/62, temperature 97.8 F (36.6 C), temperature source Tymp anic, height 5' 6" (1.676 m), weight 66.7 kg (147 lb). Physical Exam Constitutional: He appears well-developed and well-nourished. HENT: Head: Normocephalic and atraumatic. Cardiovascular: Normal rate, regular rhythm, normal heart sounds and intact dist al pulses. Pulmonary/Chest: Effort normal and breath sounds normal. Abdominal: Soft. Bowel sounds are normal. There is tenderness. ASSESSMENT: Encounter Diagnoses Name Primary? Stable angina Moderate episode of recurrent major depressive disorder Chronic bronchitis, unspecified chronic bronchitis type Yes Type 2 diabetes mellitus without complication, without long-term current use of insulin Abdominal pain, unspecified abdominal location Seizure disorder Bipolar affective disorder, remission status unspecified PLAN: Orders Placed This Encounter XR ABDOMEN ACUTE SERIES W CXR CBC WITH DIFFERENTIAL COMPREHENSIVE METABOLIC PANEL LIPASE AMYLASE URINALYSIS WITH REFLEX CULTURE MICROALBUMIN/CREATININE RATIO, RANDOM UR HEMOGLOBIN A1C (4 MONTHS X 1) ondansetron (ZOFRAN ODT) 4 mg Tablet, Rapid Dissolve albuterol HFA 90 mcg inhaler oxyCODONE (OxyCONTIN) 20 mg Controlled Release 12 hour crush resistant table t metoclopramide HCl (REGLAN) 10 mg tablet xr with ileus will get labs today continue to monitor the patient is on o2 at night and he will need to continue this as it has been h elping RMATION SYSTEMS SECURITY DEVELOPER documented in this encounter Plan of Treatment Not on filedocumented as of this encounter Results * XR ABDOMEN ACUTE SERIES W CXR (01/05/2018 2:26 PM INFORMATION SYSTEMS SECURITY DEVELOPER) Specimen Impressions Performed At IMPRESSION: Nondilated gas containing colonic loops a nd INTERFACE SYSTEM fluid-containing small bowel loops with out evidence of obstruction. Narrative Performed At EXAMINATION: XR ABDOMEN ACUTE SERIES W CXR INTERFACE SYSTEM HISTORY: Male, 67 years old. Abdominal pain, unspecified abdominal location. COMPARISON: Chest radiographs FINDINGS: Supine and upright AP views o [...] left proximal femoral fracture. Procedure Note Interface, [facility] Incoming Radiology Results - 01/05/2018 2:32 PM INFORMATION SYSTEMS SECURITY DEVELOPER EXAMINATION: XR ABDOMEN ACUTE SERIES W [...] without evidence of obstruction. Performing Organization Address [facility] INTERFACE SYSTEM INTERFACE SYSTEM Refer to clinic/hospital department * HEMOGLOBIN A1C (01/05/2018 2:25 PM INFORMATION SYSTEMS SECURITY DEVELOPER) Pathologist [facility] HEMOGLOBIN A1C 6.3 (H) 4.8 - 5.9 % [facility] [place] EST. AVG 134 mg/dL [facility] GLUCOSE, A1C [facility] [place] Specimen Blood Performing Organization Address [facility] CLIA# [id number] [place] [address] [address] * MICROALBUMIN/CREATININE RATIO, RANDOM UR (01/05/2018 2:25 PM INFORMATION SYSTEMS SECURITY DEVELOPER) [facility] MICROALBUMIN, <1.2 No Reference Range [facility] URINE mg/dL [facility] [place] CREATININE, 25.2 (L) 40.0 - 278.0 mg/dL [facility] URINE Comment: LABORATORY Reference Range varies with [facility] fluid intake and diet. FAYE Specimen Urine - Urine specimen obtained by clean catch procedure (specimen) Narrative Performed At [facility] Microalbumin/Creat ratio [facility] [place] Normal Males <17 [place] Normal Females <25 Microalbuminuria Males 17-299 Microalbuminuria Females 25-299 Overt proteinuria >=300 Unable to calculate urine microalbumin/ creatinine ratio because urine microalbumin result is outside of repor table range. Performing Organization Address [facility] CLIA# [id number] [place] [address] [address] * URINALYSIS WITH REFLEX CULTURE (01/05/2018 2:25 PM INFORMATION SYSTEMS SECURITY DEVELOPER) Pathologist [facility] COLOR UA Pale Yellow Pale to dark yellow [facility] CLARITY UA Clear Clear [facility] [place] SPECIFIC 1.004 1.003 - 1.035 [facility] GRAVITY UA [facility] - [place] PH UA 6.5 5.0 - 8.0 [facility] [...] [place] EPITHELIAL 0-5 0 - 5 /hpf [facility] CELLS, URINE [facility] - [place] Specimen Urine Performing Organization Address [facility] LABORATORY SERVICES CLIA# [id number] [place] [address] [address] * AMYLASE (01/05/2018 2:25 PM INFORMATION SYSTEMS SECURITY DEVELOPER) AMYLASE 76 28 - 100 U/L [facility] - [place] Specimen Blood Performing Organization Address [facility] LABORATORY SERVICES CLIA# [id number] [place] [address] [address] * LIPASE (01/05/2018 2:25 PM INFORMATION SYSTEMS SECURITY DEVELOPER) LIPASE 57 13 - 60 U/L [facility]ATORY [facility] - [place] Specimen Blood Performing Organization Address [facility] LABORATORY SERVICES CLIA# [id number] [place] [address] [address] * COMPREHENSIVE METABOLIC PANEL (01/05/2018 2:25 PM INFORMATION SYSTEMS SECURITY DEVELOPER) SODIUM 134 (L) 136 - 145 mmol/L [facility] [place] POTASSIUM 4.1 3.5 - 5.1 mmol/L [facility] [place] CHLORIDE 94 (L) 98 - 107 mmol/L [facility] [place] CO2 25 22 - 29 mmol/L [facility] [place] CALCIUM 9.3 8.8 - 10.2 mg/dL [facility] [place] BUN 14 8 - 23 mg/dL [facility] [place] CREATININE 0.62 (L) 0.67 - 1.17 mg/dL [facility] [place] GLUCOSE 207 (H) 70 - 100 mg/dL [facility] FAYE TOTAL PROTEIN 7.0 6.6 - 8.7 g/dL [facility] [place] ALBUMIN 4.0 3.5 - 5.2 g/dL [facility] [place] BILIRUBIN TOTAL 0.2 <=1.2 mg/dL [facility] [place] ALKALINE 100 40 - 129 U/L [facility] PHOSPHATASE [facility] [place] AST 15 <=41 U/L [facility] [place] ALT 10 10 - 50 U/L [facility] [place] GFR >60 >=60 mL/min/1.73 sq [facility] Comment: meter LABORATORY eGFR has not been validated [facility] for use in the elderly (> [...] result. GFR, >60 >=60 mL/min/1.73 sq [facility] SERBIAN meter [facility] - [place] ANION GAP 15 4 - 20 mmol/L [facility] LAB[facility]ATORY SERVICES - [facility] FAYE Specimen Blood Performing Organization Address City/State/Zipcode Ph one Number [facility] LABORATORY SERVICES CLIA# [id number] [place] [address] [place] [address] [facility] * CBC WITH DIFFERENTIAL (01/05/2018 2:25 PM INFORMATION SYSTEMS SECURITY DEVELOPER) WBC 10.0 3.6 - 11.1 K/uL [facility] - [place] RBC 4.72 4.49 - 5.52 M/uL [facility] [place] HEMOGLOBIN 11.9 (L) 13.3 - 16.5 g/dL [facility] [place] HEMATOCRIT 36.3 (L) 40.7 - 48.9 % [facility] [place] MCV 76.9 (L) 82.7 - 97.1 fL [facility] [place] MCH 25.2 (L) 27.1 - 32.3 pg [facility] [place] MCHC 32.8 31.3 - 34.9 g/dL [facility] [place] RDW 16.9 (H) 11.5 - 14.7 % [facility] [place] RDW-STDEV 46.5 37.2 - 47.6 fL [facility] [place] PLATELETS 438 (H) 136 - 352 K/uL [facility] [place] MPV 8.0 (L) 8.6 - 11.8 fL [facility] [place] NEUTROPHILS 69 [...] IMMATURE 0.04 0.00 - 0.09 K/uL [facility] GRANULOCYTES [facility] ABSOLUTE SERVICES - [place] Specimen Blood Performing Organization Address City/State/Zipcode Ph one Number [facility] LABORATORY SERVICES CLIA# [id number] [place] [address] - [place] [address] documented in this encounter Visit Diagnoses Diagnosis Chronic bronchitis, unspecified chronic bronchitis type - Primary Stable angina Other and unspecified angina pectoris Moderate episode of recurrent major dep ressive disorder Type 2 diabetes mellitus without compli cation, without long-term current use of insulin Abdominal pain, unspecified abdominal l ocation Seizure disorder Unspecified epilepsy without mention of intractable epilepsy Bipolar affective disorder, remission s tatus unspecified documented in this encounter Additional Health Concerns Assessment Noted Time A Hypertension Plan of Care has been documented for t pati patient 02/12/2017 12:54 PM CDT documented as of this encounter
--- OUTSIDE RECORDS SUMMARY | 2020-03-24 13:53 | XMS REPORT | Encounter Summary ---
Author Author [facility] Organization [facility] Address Unknown Phone Unavailable Care Team Providers Care Hairspring Vibrator Name Role Phone Claus Couch MD PCP Reason for Visit * Auth/Cert Referred By Contact Referred To Contact Status Reason Specialty Diagnoses / Procedures [facility] [place] [address] [place] [address] Home Health Encounter Details Care Team Description Date Type Department Karen Booker RN SN - HOME VISIT 12/21/2017 Home [facility] Visit [facility] [address] [place] [address] Social History Date Tobacco Use [...] Signs Reading Time Taken Comments Vital Sign 110/74 12/21/2017 1:45 PM TRUST MANAGER ASSISTANT Blood Pressure 72 12/21/2017 1:45 PM TRUST MANAGER ASSISTANT Pulse 36.8 C (98.3 F) 12/21/2017 1:45 PM TRUST MANAGER ASSISTANT Temperature 20 12/21/2017 1:45 PM TRUST MANAGER ASSISTANT Respiratory Rate 97% 12/21/2017 1:45 PM TRUST MANAGER ASSISTANT Oxygen Saturation - - Inhaled Oxygen Concentration [...] - SN - HOME VISIT Discipline - Penitentiary Status Goals Interventions Problem Descriptio Start Date n Active - 2 problem interventions scheduled/documented in this visit Home Safety Home 09/08/2017 Disciplines: safety Penitentiary Active - 2 problem interventions scheduled/documented in this visit Medications Management 09/08/2017 Disciplines: of home Penitentiary medication s Active - 2 problem interventions scheduled/documented in this visit Physical Discomfort Alteration 09/08/2017 Disciplines: in comfort Penitentiary Active - 1 problem intervention scheduled/documented in this visit Pulse Oximetry Skilled 09/08/2017 Disciplines: assessment Penitentiary and monitoring of O2 saturation s. Active - 1 problem intervention scheduled/documented in this visit Skilled Observation and Skilled 09/08/2017 Assessment nursing Disciplines: observatio Penitentiary n and assessment . Active - 1 problem intervention scheduled/documented in this visit Teach Diabetic Care Teaching 09/08/2017 Disciplines: and Penitentiary training related to diabetic care. Variance Visit Notes Intervention Associated Status Problem/Go [...] instruct Caregiver and monitor for proper administration. Medication reconciliation done with drs office med list and patients medications in the home. No discrepancies found. Skilled assessment Problem: Completed medications Medication Description: [...] any abnormalities or concerns to the physician. Patient reports that he doesn't check his blood sugars. He relies on the Hgb A1C tests. I asked if he had a glucose monitor in the home and he denies. Teach diabetes Problem: Completed Description: Teach SN to teach Diabetic patient/caregiver re: Care management of diabetes diet, skin care, foot care, signs and symptoms of hyper/hypoglycemia and management of hyper/hypoglycemia and when to notify HH, physician, or EMS. Evaluate the effectiveness of the current treatment regimen and notify physician for the need for changes in the plan of care. documented in this encounter
--- OUTSIDE RECORDS SUMMARY | 2020-03-24 13:53 | XMS REPORT | Encounter Summary ---
Author Author [facility] Organization [facility] Address Unknown Phone Unavailable Care Team Providers Care Manager Shop Name Role Phone Claus Couch MD PCP Reason for Referral * Consult, Test & Treat (Routine) Referred By Contact Referred To Contact Status Reason Specialty Diagnoses / Procedures Jona Doran, JONNATHAN [address] [place] [address] Blayne Alberts, DO [address] [address] Closed Orthopedic Diagnoses Surgery Olecranon bursitis, right elbow Reason for Visit * Reason Comments Elbow Pain Cont.Elbow Pain Hip Pain Lt Hip Pain (xray prior to appt) Encounter Details Care Team Description Date Type Department Jona Doran APRN [address] [place] [address] Olecranon bursitis, right elbow (Primary Dx); Primary osteoarthritis of left knee; Primary osteoarthritis of right knee 11/30/2017 Office Visit [facility] [address] [address] Social History Date Tobacco Use [...] Oxygen Saturation - - Inhaled Oxygen Concentration 68.9 kg (152 lb) 11/30/2017 10:30 AM SERVICE ORDER CLERK Weight 167.6 cm (5' 6") 11/30/2017 10:30 AM SERVICE ORDER CLERK Height 24.53 11/30/2017 10:30 AM SERVICE ORDER CLERK Body Mass Index documented in this encounter Progress Notes * Jona Doran, SUPERVISOR PATCHING - 11/30/2017 10:54 AM SERVICE ORDER CLERK This patient returns right elbow olecranon bursitis. I had aspirated his olecra non bursa right elbow and injected it with cortisone, October 20. He only had one cortisone injection. There were 2 separate occasions, both the end of Dece and on or about 15 November that the right olecranon bursa was aspirated. Aga in, no cortisone used at that time. He is been using olecranon pads. He's had a recurrence of fluctuance. Soreness right olecranon. No injury. Additionally, he is having bilateral knee pain today. No injury, bilateral knee s. He's had no surgery, bilateral knees. He is status post open reduction internal fixation basilar cervical fracture, le ft femur, long TFN. His procedure was in [place], [place], left hip around the middle of March 2017. I had seen him in consultation about one month postop for some hip pain. I was asked to see him during an inpatient hospitalization about one month postoperatively. It was noted at that time he had a little bit of v arus alignment of his hip. It was also noted that his left hip was incompletely healed of course at that time. He was to follow-up with his surgeon regarding the left hip. His left hip has improved over the last several months. I did gi ve him a heel lift to build up his left leg due to leg length discrepancy, left being shorter than right due to the loss of some length from varus alignment lef t hip. He is able to ambulate. He states primarily. He has problems now due t o bilateral knee pain. On examination, there is no warmth, no erythema, no effusion either knee. There is no laxity or instability. Overall deconditioned state. He has a recurrence of a fluctuant right olecranon bursa. I would estimate prob ably around 15 cc, maybe even a little bit more of fluid which is reaccumulated in his right olecranon bursa. There is no warmth, no erythema. Review of x-rays right elbow show osteopenic, probably osteoporotic changes. So me early degenerative changes, right elbow. No acute osseous abnormality. X-rays right hip show progressive healing of the basilar cervical femoral neck f racture left hip with retained hardware. The fracture has progressively healed since I last saw films. There remains a little bit of a lucency laterally. Cli nically, this seems insignificant. In addition to his history, which she's havi ng more knee pain with walking that he is hip pain. Assessment bilateral knee osteoarthritis. Status post left hip ORIF, long TFN f or basilar cervical fracture; varus alignment and slight leg shortening, left hi p sequela from fracture and surgery. Right elbow olecranon bursitis refractory to conservative treatment. Plan: the natural history of the problem was reviewed at length with the patien t and options in treatment were discussed. questions and concerns answered. I have recommended against recurrent aspiration. I think if we continue to aspi rate his right elbow. We run the risk of introducing infection. I've given him the option of continued nonsurgical management of this avoiding repetitive move ments, padding the elbow, keeping pressure off of the elbow and maybe in a coupl e of months aspirating and reinjecting cortisone, right elbow. This in addition to the option of surgical referral, which she is interested in. We will make s urgical referral for bursectomy, right elbow. Each knee is injected, sterile technique and tolerated well. 12 mg Celestone 4 cc quarter percent Marcaine. We will plan to recheck him back when necessary. I appreciate the help with th is patient. This note has been dictated by myself into and transcribed by the "[employer]" MD Lingo scription system. There sometimes are words misinterpreted and/or mispelled by this phonographic system. ICE ORDER CLERK documented in this encounter Plan of Treatment Order Schedule Name Type Priority Associated Diag noses Ordered: 11/30/2017 AMB REFERRAL TO Outpatient Routine Olecranon burs itis, right ORTHOPEDIC SURGERY Referral elbow documented as of this encounter Visit Diagnoses Diagnosis Olecranon bursitis, right elbow - Prima ry Primary osteoarthritis of left knee Primary localized osteoarthrosis, lower leg Primary osteoarthritis of right knee Primary localized osteoarthrosis, lower leg documented in this encounter Additional Health Concerns Assessment Noted Time A Hypertension Plan of Care has been documented for t he patient 02/12/2017 12:54 PM CDT documented as of this encounter
--- OUTSIDE RECORDS SUMMARY | 2020-03-24 13:53 | XMS REPORT | Encounter Summary ---
Author Author [facility] Organization [facility] Address Unknown Phone Unavailable Care Team Providers Care Culture Manager Name Role Phone Claus Couch MD PCP Encounter Details Care Team Description Date Type Department Claus Couch MD [address] [place] [address] 11/24/2017 Abstract [facility] Primar y Care [place] [address] [place] [address] Social History Date Tobacco [...]
--- OUTSIDE RECORDS SUMMARY | 2020-03-24 13:53 | XMS REPORT | Encounter Summary ---
Author Author [facility] Organization [facility] Address Unknown Phone Unavailable Care Team Providers Care Handle And Vent Machine Operator Name Role Phone Claus Couch MD PCP Encounter Details Care Team Description Date Type Department Jona Doran, EDGE BONDER [address] [place] [address] 11/30/2017 [facility] Imaging Se rvices Encounter [place] [address] [place] [address] Social History Date Tobacco Use [...] (FLONASE) 50 Administer 2 16 Gram mcg/spray Pollok, Sprays in Suspension each nostril daily. 07/07/2017 [...] Name Priority Date/Time Associated Diag nosis XR ELBOW 3+ VW RIGHT Routine 11/30/2017 Olecranon bursitis of 10:04 AM SOLID WASTE FACILITY OPERATOR right elbow documented in this encounter Results * XR ELBOW 3+ VW RIGHT (11/30/2017 10:04 AM SOLID WASTE FACILITY OPERATOR) Specimen Impressions Performed At Impression: Fluid-filled olecranon bursa. INTERFACE SYSTEM Narrative Performed At Right elbow, three views. INTERFACE SYSTEM History: Pain. Comparison: None available. The olecranon bursa is fluid-filled. No joint effusion. Joint spaces preserved. No evidence of acute fract ure, dislocation or other significant skeletal abnormality. Procedure Note Interface, [facility] Incoming Radiology Results - 11/30/2017 10:12 AM SOLID WASTE FACILITY OPERATOR Right elbow, three views. History: Pain. Comparison: None available. The olecranon bursa is fluid-filled. No joint effusion. Joint spaces preserved. No evidence of acute fracture, dislocation or other significant skeletal abnormality. Impression: Fluid-filled olecranon bursa. Performing Organization Address City/State/Zipcode Ph one Number INTERFACE SYSTEM INTERFACE SYSTEM Refer to clinic/hospital department documented in this encounter Visit Diagnoses Diagnosis Olecranon bursitis of right elbow Olecranon bursitis documented in this encounter Additional Health Concerns Assessment Noted Time A Hypertension Plan of Care has been documented for t pati patient 02/12/2017 12:54 PM CDT documented as of this encounter
--- OUTSIDE RECORDS SUMMARY | 2020-03-24 13:53 | XMS REPORT | Encounter Summary ---
Author Author [facility] Organization [facility] Address Unknown Phone Unavailable Care Team Providers Care Rn International Name Role Phone Claus Couch MD PCP Reason for Visit * Reason Comments Medication Refill Encounter Details Care Team Description Date Type Department Neyda Redmond MD [address] [place] [address] 12/22/2017 Refill [facility] Primar y Care [address] [address] Social History Date Tobacco Use [...]
[2020-03-24 13:54] LABS: BASOPHILS % (AUTO) 0 % (0-10); EOSINOPHILS # (AUTO) 0.1 10^3/uL (0.0-0.3); EOSINOPHILS % (AUTO) 1 % (0-10); LYMPHOCYTES # (AUTO) 1.8 X 10^3 (1.0-4.0); LYMPHOCYTES % (AUTO) 22 % (12-44); MONOCYTES # (AUTO) 0.7 X 10^3 (0.0-1.0); MONOCYTES % (AUTO) 8 % (0-12); NEUTROPHILS # (AUTO) 5.9 X 10^3 (1.8-7.8); NEUTROPHILS % (AUTO) 69 % (42-75)
--- OUTSIDE RECORDS SUMMARY | 2020-03-24 13:54 | XMS REPORT | Encounter Summary ---
Author Author [facility] Organization [facility] Address Unknown Phone Unavailable Care Team Providers Care Lead Maintenance Technician Name Role Phone Claus Couch MD PCP Encounter Details Care Team Description Date Type Department Claus Couch MD [address] [place] [address] 11/11/2017 Abstract [facility] Primar y Care [place] [address] [place] [address] Social History Date Tobacco Use [...]
--- OUTSIDE RECORDS SUMMARY | 2020-03-24 13:54 | XMS REPORT | Encounter Summary ---
Author Author [facility] Organization [facility] Address Unknown Phone Unavailable Care Team Providers Care Head Greenskeeper Name Role Phone Claus Couch MD PCP Reason for Visit * Reason Comments Medication Refill Encounter Details Care Team Description Date Type Department Claus Couch MD [address] [place] [address] 11/23/2017 Refill [facility] Primar y Care [place] [address] [place] [address] Social History Date Tobacco Use [...]
--- OUTSIDE RECORDS SUMMARY | 2020-03-24 13:54 | XMS REPORT | Encounter Summary ---
Author Author [facility] Organization [facility] Address Unknown Phone Unavailable Care Team Providers Care Wet Pour Mixer Name Role Phone Claus Couch MD PCP Reason for Visit * Reason Comments Medication Refill Encounter Details Care Team Description Date Type Department Claus Couch MD [address] [place] [address] 10/20/2017 Refill [facility] Primar y Care [place] [address] [place] [address] Social History Date Tobacco Use [...]
--- OUTSIDE RECORDS SUMMARY | 2020-03-24 13:54 | XMS REPORT | Encounter Summary ---
Author Author [facility] Organization [facility] Address Unknown Phone Unavailable Care Team Providers Care Corporate Safety Director Name Role Phone Claus Couch MD PCP Encounter Details Care Team Description Date Type Department Jona Doran APRN [address] [place] [address] Olecranon bursitis of right elbow (Prima ry Dx) 11/17/2017 Orders Only [facility] Orthop edics [address] [address] Social History Date Tobacco Use [...] Progress Notes * Jona Doran APRN - 11/17/2017 1:18 PM HEEL SEAT LASTER recurrence of fluctuant bursitis right elbow. plan xrays and recheck. hip films as well as he wanted to do this the other day. SEAT LASTER documented in this encounter Plan of Treatment Not on filedocumented as of this encounter Results * XR ELBOW 3+ VW RIGHT (11/30/2017 10:04 AM HEEL SEAT LASTER) Specimen Impressions Performed At Impression: Fluid-filled olecranon bursa. INTERFACE SYSTEM Narrative Performed At Right elbow, three views. INTERFACE SYSTEM History: Pain. Comparison: None available. The olecranon bursa is fluid-filled. No joint effusion. Joint spaces preserved. No evidence of acute fract ure, dislocation or other significant skeletal abnormality. Procedure Note [place] Incoming Radiology Results - 11/30/2017 10:12 AM HEEL SEAT LASTER Right elbow, three views. History: Pain. Comparison: None available. The olecranon bursa is fluid-filled. No joint effusion. Joint spaces preserved. No evidence of acute fracture, dislocation or other significant skeletal abnormality. Impression: Fluid-filled olecranon bursa. Performing Organization Address City/State/Zipcode Ph one Number INTERFACE SYSTEM INTERFACE SYSTEM Refer to clinic/hospital department documented in this encounter Visit Diagnoses Diagnosis Olecranon bursitis of right elbow - Farhana matta Olecranon bursitis documented in this encounter Additional Health Concerns Assessment Noted Time A Hypertension Plan of Care has been documented for t pati patient 02/12/2017 12:54 PM CDT documented as of this encounter
--- OUTSIDE RECORDS SUMMARY | 2020-03-24 13:54 | XMS REPORT | Encounter Summary ---
Author Author [facility] Organization [facility] Address Unknown Phone Unavailable Care Team Providers Care Tool Filer Hand Name Role Phone Claus Couch MD PCP Reason for Visit * Reason Comments Medication Refill Encounter Details Care Team Description Date Type Department Claus Couch MD [address] [place] [address] 11/15/2017 Refill [facility] Primar y Care [place] [address] [place] [address] Social History Date Tobacco Use [...]
--- OUTSIDE RECORDS SUMMARY | 2020-03-24 13:54 | XMS REPORT | Encounter Summary ---
Author Author [facility] Organization [facility] Address Unknown Phone Unavailable Care Team Providers Care Manganese Wheeler Name Role Phone Claus Couch MD PCP Reason for Visit * Auth/Cert Referred By Contact Referred To Contact Status Reason Specialty Diagnoses / Procedures [facility] [address] [place] [address] Home Health Encounter Details Care Team Description Date Type Department Marissa Pitts, RN CASE COMMUNICATION 11/06/2017 [facility] [address] [place] [address] Social History Date Tobacco Use [...]
--- OUTSIDE RECORDS SUMMARY | 2020-03-24 13:54 | XMS REPORT | Encounter Summary ---
Author Author [facility] Organization [facility] Address Unknown Phone Unavailable Care Team Providers Care Application Assistant Name Role Phone Claus Couch MD PCP Reason for Visit * Reason Comments Medication Refill Encounter Details Care Team Description Date Type Department Claus Couch MD [address] [place] [address] 10/20/2017 Refill [facility] Primar y Care [place] [address] [place] [address] Social History Date Tobacco Use [...]
--- OUTSIDE RECORDS SUMMARY | 2020-03-24 13:54 | XMS REPORT | Encounter Summary ---
Author Author [facility] Address Unknown Phone Unavailable Care Team Providers Care Pig Breeder Name Role Phone Claus Couch MD PCP Reason for Visit * Auth/Cert Referred By Contact Referred To Contact Status Reason Specialty Diagnoses / Procedures [facility] [place] [address] [place] [address] Home Health Encounter Details Care Team Description Date Type Department Marissa Pitts RN SN - HOME VISIT 10/29/2017 Home Care Visit [facility] Healt h [facility] [address] [place] [address] Social History Date Tobacco Use [...] Comments Vital Sign - - Blood Pressure 96 10/29/2017 11:10 AM CHINESE MEDICINE PRACTITIONER Pulse - - Temperature 20 10/29/2017 11:10 AM CHINESE MEDICINE PRACTITIONER Respiratory Rate 96% 10/29/2017 11:10 AM CHINESE MEDICINE PRACTITIONER Oxygen Saturation - - Inhaled Oxygen Concentration [...] - SN - HOME VISIT Discipline - Fpc Status Goals Interventions Problem Descriptio Start Date n Active - 1 problem intervention scheduled/documented in this visit Medications Management 09/08/2017 Disciplines: of home Fpc medication s Active - 1 problem intervention scheduled/documented in this visit Physical Discomfort Alteration 09/08/2017 Disciplines: in comfort Fpc Active - 1 problem intervention scheduled/documented in this visit Skilled Observation and Skilled 09/08/2017 Assessment nursing Disciplines: observatio Fpc n and assessment . Variance Visit Notes [...] Home Health Visit - Actions and Narratives Additional medications added to medicat ion telecommunications network planner due to unavailability of medications at previous nursing visit this week. documented in this encounter
--- OUTSIDE RECORDS SUMMARY | 2020-03-24 13:54 | XMS REPORT | Encounter Summary ---
Author Author [facility] Organization [facility] Address Unknown Phone Unavailable Care Team Providers Care Brass Wind Instrument Maker Name Role Phone Claus Couch MD PCP Reason for Visit * Reason Comments Follow Up F/U Elbow & Shoulder Pain Encounter Details Care Team Description Date Type Department Jona Doran, HYDROGEN CELL TENDER [address] [place] [address] Olecranon bursitis, right elbow (Primary Dx) 10/20/2017 Office Visit [facility] Orthop edics [address] [address] Social History Date Tobacco Use [...] Inhaled Oxygen Concentration 68.9 kg (152 lb) 10/20/2017 10:17 AM ICE BAG ASSEMBLER Weight 167.6 cm (5' 6") 10/20/2017 10:17 AM ICE BAG ASSEMBLER Height 24.53 10/20/2017 10:17 AM ICE BAG ASSEMBLER Body Mass Index documented in this encounter Progress Notes * Jona Doran, JONNATHAN - 10/20/2017 10:36 AM ICE BAG ASSEMBLER left elbow doing well right elbow now is swollen over the olecranon bursa. no injury. he would like it drained. on exam he has an obvious fluctuan olecranon bursitis with no warmth or erythema . good motion of his elbow, n-v intact intact A: right olecranon bursitis P: the natural history of the problem was reviewed at length with the patient a nd options in treatment were discussed. questions and concerns answered. the elbow aspirated 10 cc of heme, injected with 12 mg celestone and tolerated w ell. olecranon pads (set) given recheck prn at his request. keep pressure off of the elbow. BAG ASSEMBLER documented in this encounter Plan of Treatment Not on filedocumented as of this encounter Visit Diagnoses Diagnosis Olecranon bursitis, right elbow - Prima ry documented in this encounter Additional Health Concerns Assessment Noted Time A Hypertension Plan of Care has been documented for t he patient 02/12/2017 12:54 PM CDT documented as of this encounter
--- OUTSIDE RECORDS SUMMARY | 2020-03-24 13:54 | XMS REPORT | Encounter Summary ---
Author Author [facility] Organization [facility] Address Unknown Phone Unavailable Care Team Providers Care Software Testing Specialist Name Role Phone Claus Couch MD PCP Reason for Visit * Auth/Cert Referred By Contact Referred To Contact Status Reason Specialty Diagnoses / Procedures [facility] [place] [address] [place] [address] Home Health Encounter Details Care Team Description Date Type Department Marissa Pitts RN SN - HOME VISIT 11/23/2017 Home Care Visit [facility] Healt [facility] [address] [place] [address] Social History Date Tobacco Use [...] Comments Vital Sign - - Blood Pressure 90 11/23/2017 11:15 AM CORNER BLOCK CUTTER Pulse - - Temperature 20 11/23/2017 11:15 AM CORNER BLOCK CUTTER Respiratory Rate 97% 11/23/2017 11:15 AM CORNER BLOCK CUTTER Oxygen Saturation - - Inhaled Oxygen Concentration [...] visit Home Safety Home 09/08/2017 Disciplines: safety Group Home Active - 1 problem intervention scheduled/documented in this visit Knowledge deficit on Infection 09/08/2017 preventing infection with prevention therapies . Disciplines: Group Home Active - 1 problem intervention scheduled/documented in this visit Learning/Teaching Needs - Learning/t 09/08/2017 Pressure Ulcer eaching Disciplines: needs re: Group Home prevention and care of pressure ulcer Active - 2 problem interventions scheduled/documented in this visit Medications Management 09/08/2017 Disciplines: of home Group Home medication s Active - 1 problem intervention scheduled/documented in this visit Nutritional concerns Nutritiona 09/08/2017 Disciplines: l intake Group Home concerns Active - 1 problem intervention scheduled/documented in this visit Physical Discomfort Alteration 09/08/2017 Disciplines: in comfort Group Home Active - [...]
--- OUTSIDE RECORDS SUMMARY | 2020-03-24 13:54 | XMS REPORT | Encounter Summary ---
Author Author [facility] Organization [facility] Address Unknown Phone Unavailable Care Team Providers Care Sr. Manager Name Role Phone Claus Couch MD PCP Encounter Details Care Team Description Date Type Department Claus Couch MD [address] [place] [address] 11/11/2017 Abstract [facility] Primar y Care [place] [address] [place] [address] Social History Date Tobacco Use [...]
--- OUTSIDE RECORDS SUMMARY | 2020-03-24 13:54 | XMS REPORT | Encounter Summary ---
Author Author [facility] Organization [facility] Address Unknown Phone Unavailable Care Team Providers Care Director Of Business Systems Name Role Phone Claus Couch MD PCP Reason for Visit * Auth/Cert Referred By Contact Referred To Contact Status Reason Specialty Diagnoses / Procedures [facility] [place] [address] [place] [address] Home Health Encounter Details Care Team Description Date Type Department Janell Marie RN SN - HOME VISIT 10/26/2017 Home Care Visit [facility] Healt h [facility] [address] [place] [address] Social History Date Tobacco Use [...] Signs Reading Time Taken Comments Vital Sign 120/60 10/26/2017 2:00 PM LEG ASSEMBLER Blood Pressure 70 10/26/2017 2:00 PM LEG ASSEMBLER Pulse 36.4 C (97.6 F) 10/26/2017 2:00 PM LEG ASSEMBLER Temperature 24 10/26/2017 2:00 PM LEG ASSEMBLER Respiratory Rate 99% 10/26/2017 2:00 PM LEG ASSEMBLER Oxygen Saturation - - Inhaled Oxygen Concentration [...] visit Medications Management 09/08/2017 Disciplines: of home Chcf medication s Active - 1 problem intervention scheduled/documented in this visit Physical Discomfort Alteration 09/08/2017 Disciplines: in comfort [facility]cf Active - 1 problem intervention scheduled/documented in this visit Pulse Oximetry Skilled 09/08/2017 Disciplines: assessment Chcf and monitoring of O2 saturation s. Active - 1 problem intervention scheduled/documented in this visit Skilled Observation and Skilled 09/08/2017 Assessment nursing Disciplines: observatio Chcf n and assessment . Variance Visit Notes Intervention Associated Status Problem/Go al medication box filled per written list and computer list, Started on Zithromax 250 mg daily x 4 days, Seen in ER this am for bronchitis Medication box Problem: Completed Description: Medication SN to fill medication box s every Wednesday. SN to instruct Caregiver and monitor for proper administration. Medications reconcilation, Antibiotic not in home yet, Need refills on Ezetimibe and Lorazepam. Skilled assessment Problem: Completed medications Medication Description: [...] for changes in the plan of care. Patient asleep the entive SNV. Pain med placed daily in med mission planner, Skilled assessment pain Problem: Completed Description: Physical [...] for changes in the plan of care. 99% Sn to obtain pulse ox Problem: Completed reading Pulse Description: Oximetry Monitor and record O2 saturation when sitting and at rest. Evaluate the effectiveness of current therapy, and notify physician of the need for modifications to the treatment plan. Vital signs stable, no temperature, scattered expiratory wheezes to all lung flelds, instructed caregiver to make sure he gets all inhalers as ordered. voice understanding Skilled observation and Problem: Completed assessment general Skilled assessment Observatio Description: n and SN to perform general Assessment assessment to include vital signs and temperature. General assessment of systems: pulmonary, cardiovascular, neurologic, gastrointestinal, endocrine, musculoskeletal, renal/urinary, integumentary and report any abnormalities or concerns to the physician. documented in this encounter Home Health Visit - Actions and Narratives Patient seen in ER during night due to c/o chest pain, dx Bronchitis and started on Zithromax 250 mg daily x 4 days. Caregiver will picker and sorter load and unload today. patient asleep entire SNV. med mission planner filled x 2 weeks, Instruced caregiver on new antib iotic, bronchitis , signs to report and medical f/u . voices understanding. Update to Pao barry RN documented in this encounter
--- OUTSIDE RECORDS SUMMARY | 2020-03-24 13:54 | XMS REPORT | Encounter Summary ---
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 Name Role Phone Claus Couch MD PCP Reason for Visit * Reason Comments Chest Pain Shortness of Breath Encounter Details Care Team Description Date Type Department Anterior chest wall pain (Pr imary Dx); Acute bronchitis, unspecified organism 10/26/2017 Emergency [facility] Emergency Department [address] [id number] Social History Date Tobacco Use [...] Signs Reading Time Taken Comments Vital Sign 103/59 10/26/2017 3:20 AM [employer] Blood Pressure - - Pulse 36.7 C (98 F) 10/26/2017 3:20 AM [employer] Temperature 20 10/26/2017 3:20 AM [employer] Respiratory Rate 96% 10/26/2017 3:20 AM [employer] Oxygen Saturation - - Inhaled Oxygen Concentration 68.9 kg (152 lb) 10/26/2017 3:20 AM [employer] Weight - - Height 24.53 10/20/2017 10:17 AM [employer] Body Mass Index documented in this encounter Discharge Instructions * Attachments The following attachments cannot be sent through Care Everywhere.* Chest Pain: Musculoskeletal (Turkish) documented in this encounter Medications at Time [...] Tablet 5 tablet mouth daily at bedtime. 10/26/2017 10/30/2017 azithromycin (ZITHROMAX) Take 1 Tablet 4 Tablet 0 250 mg tablet (250 mg) by mouth daily for 4 days. 10/20/2017 11/15/2017 oxyCODONE (OxyCONTIN) 20 Take 1 Tablet 60 Tablet 0 mg Controlled Release 12 (20 mg) by hour crush resistant mouth every tablet 12 hours. 10/20/2017 04/29/2018 simvastatin (ZOCOR) 40 [...] N. DO NOT EXCEED 3 DOSES. 07/07/2017 11/23/2017 bethanechol (URECHOLINE) [The details 120 Tablet 3 25 mg tablet of the medication are not available because there are pending changes by a home health clinician.] 07/07/2017 03/14/2018 fluticasone (FLONASE) 50 Administer 2 16 Gram mcg/spray [place], Sprays in Suspension each nostril daily. 07/07/2017 [...] mouth daily 145 mg tablet with supper. 02/01/2017 11/23/2017 clopidogrel (PLAVIX) 75 Take 1 Tab by 30 Tablet 5 mg Tablet mouth daily. 09/10/2010 04/26/2018 MULTIVITAMIN PO Take 1 Tab by 0 mouth daily with lunch. documented as of this encounter Procedure Notes * David Ferrer MD - 10/27/2017 9:20 AM [employer] Associated Order(s): EKG 12 LEAD UNIT PERFORMED [address] [place] [address] Patient Name: OLIVERIO DALTON CSN: [id number] : 1950 Provider: David Bernard M.D. Admitted: 10/26/2017 ELECTROCARDIOGRAM DATE OF SERVICE: 10/26/2017 10/26/2017 at 0307. The rhythm is regular, sinus in origin with a rate of 98 geneva ts per minute. Slow R wave progression is seen across the anteroseptal chest meggan ds. Limb leads show low voltage. Compared with previous tracing dated September 032016, R waves are better seen in V2 and V3 previously. DIAGNOSIS: 1) Sinus rh ythm, rate 98 beats per minute. 2) Low voltage limb leads. 3) Slow R wave progre ssion, anteroseptal chest leads, possibly due to lead placement. Dictated by: David Bernard M.D./MEDQ D: [id number] V: [id number] cc: Claus Couch M.D. [employer] documented in this encounter ED Notes * Sybil Henry, JONNATHAN - 10/26/2017 3:06 AM [employer] HISTORY OF PRESENT ILLNESS Oliverio Dalton, a 67 y.o. male presents to the ED with a Chief Complaint of Ch est Pain and Shortness of Breath Subjective Chest pain 1h onset prior to arrival Pain with deep breaths Coughing the last few days REVIEW OF SYSTEMS Review of Systems Constitutional: Negative for chills and fever. HENT: Positive for congestion. Negative for rhinorrhea. Respiratory: Positive for cough and shortness of breath (chronic). Cardiovascular: Positive for chest pain. Gastrointestinal: Negative for abdominal pain, nausea and vomiting. PAST MEDICAL HISTORY REVIEWED MEDICAL: Patient has [...] (LUTS); Magdalena rogenic bladder; Unspecified glaucoma(365.9); Bipolar disorder, unspecified; Hyp erlipidemia; Tubular adenoma; Status post laparoscopic appendectomy; Umbilical h ernia without mention of obstruction or gangrene; Bradycardia; Back pain; LFT el evation; Osteoarthritis of right knee; Carpal tunnel syndrome; Diabetes mellitus ; CAD (coronary artery disease); COPD (chronic obstructive pulmonary disease); S eizure disorder; Depression; Suicidal behavior; Status post colonoscopy; Status post right inguinal hernia repair; Ulcers of both lower legs, limited to breakdo wn of skin; Cigarette dependence; Closed displaced fracture of middle phalanx of right little finger; Left hip pain; Hyponatremia; Frequent falls; Acute cystitis without hematuria; Hyponatremia; Oral thrush; Pressure ulcer of coccygeal roselyn on, stage 3; Decubitus ulcer of left buttock, stage 3; and Decubitus ulcer of ri ght buttock, stage 3 on his problem list. ALLERGIES Codeine; Doxycycline; Penicillins; Phenobarbital; Piperacillin-tazobactam; Septr a [sulfamethoxazole-trimethoprim]; Terazosin; and Valium [diazepam] HOME MEDICATIONS Discharge Medication List as of 10/26/2017 6:55 AM START taking these medications Details azithromycin (ZITHROMAX) 250 mg tablet Take 1 Tablet (250 mg) by mouth daily for 4 days., Disp-4 Tablet, R-0 CONTINUE these medications which have NOT CHANGED Details oxyCODONE (OxyCONTIN) 20 mg Controlled Release 12 hour crush resistant tablet Ta ke 1 Tablet (20 mg) by mouth every 12 hours., Disp-60 Tablet, R-0 simvastatin (ZOCOR) 40 mg tablet TAKE ONE TABLET (40MG) BY MOUTH EVERY DAY IN E EVENING, Disp-90 Tablet, R-1 ezetimibe (ZETIA) 10 mg tablet Take 1 Tab by mouth daily at bedtime., Disp-30 Ta blet, R-5 LORazepam (ATIVAN) 1 mg tablet TAKE ONE TABLET BY MOUTH 2 TIMES A DAY.., Disp-60 Tablet, R-2 ramipril (ALTACE) 5 mg capsule Take 1 Capsule (5 mg) by mouth daily., Disp-30 Ca psule, R-5 OLANZapine (ZyPREXA) 2.5 mg tablet Take 1 Tab by mouth daily at bedtime., Disp-3 0 Tablet, R-5 phenytoin sodium (DILANTIN) 100 mg extended release capsule Take 2 Capsules (200 mg) by mouth 2 times daily., Disp-120 Capsule, R-2 raNITIdine (ZANTAC) 150 mg tablet Take 1 Tablet (150 mg) by mouth daily at bedti me., Disp-30 Tablet, R-5 oxyCODONE-acetaminophen (PERCOCET) 10-325 mg Tablet TAKE 2 TABLETS EVERY 4 HOURS NEEDED FOR BREAKTHRU PAIN., Disp-30 Tablet, R-0 sennosides-docusate sodium (SENOKOT-S) 8.6-50 mg tablet Take 1 Tablet by mouth d aily., Disp-30 Tablet, R-5 traZODone (DESYREL) 50 mg tablet Take 1 Tab by mouth daily at bedtime.., Disp-30 Tablet, R-5 temazepam (RESTORIL) 7.5 mg capsule Take 1 Capsule (7.5 mg) by mouth nightly as needed for Insomnia., Disp-30 Capsule, R-2 gabapentin (NEURONTIN) 300 mg capsule Take 1 Capsule (300 mg) by mouth daily at bedtime., Disp-30 Capsule, R-5 FLUoxetine (PROzac) 20 mg capsule TAKE 2 CAPSULES BY MOUTH EVERY DAY.., Disp-60 Capsule, R-5 nitroglycerin (NITROSTAT) 0.4 mg Tablet, Sublingual DISSOLVE 1 TABLET UNDER TONG UE EVERY 5 MINUTES NEEDED FOR CHEST KULDEEP N. DO NOT EXCEED 3 DOSES., Disp-25 Ta blet, R-PRN bethanechol (URECHOLINE) 25 mg tablet TAKE ONE TABLET BY MOUTH FOUR TIMES A DAY, Disp-120 Tablet, R-3 fluticasone (FLONASE) 50 mcg/spray [place], Suspension Administer 2 Sprays in each nostril daily., Disp-16 Gram, R-PRN pioglitazone (ACTOS) 30 mg tablet Take 1 Tab by mouth daily., Disp-90 Tablet, R- 1 PROAIR HFA 90 mcg/actuation inhaler Take 2 Puffs by inhalation every 4 hours as needed for Shortness of Br eath., Disp-8.5 Gram, R-11 tamsulosin (FLOMAX) 0.4 mg capsule TAKE ONE CAPSULE BY MOUTH EVERY DAY 30 MINUTE S AFTER SUPPER, Disp-30 Capsule, R-11 fenofibrate nanocrystallized (TRICOR) 145 mg tablet Take 1 Tab by mouth daily wi th supper., Disp-30 Tablet, R-11 isosorbide mononitrate (IMDUR) 60 mg Extended Release 24 hour tablet TAKE ONE TA BLET BY MOUTH 2 TIMES A DAY, Disp-60 Tablet, R-5 loratadine (CLARITIN) 10 mg tablet Take 1 Tab by mouth daily., Disp-30 Tablet, R -5 clopidogrel (PLAVIX) 75 mg Tablet Take 1 Tab by mouth daily., Disp-30 Tablet, R- 5 fluticasone (FLOVENT HFA) 110 mcg/actuation HFA Aerosol [...] am & pm prn, Disp-1 Package, R-0 MULTIVITAMIN PO Take 1 Tab by mouth daily with lunch. BETIMOL 0.5 % OP Drop Administer 1 Drop in both eyes 2 times daily. Objective PHYSICAL EXAM INITIAL VS BP: 103/59 (10/26/17319), Heart Rate: 98 bpm (10/26/17319), Resp: 20 (319), Temp: 98 F (36.7 C) (10/26/17319), Temp src: Temporal (10/26/17319), SpO2: 96 % (10/26/17319), Height: (not recorded), Weight: 68.9 kg (152 lb) (10/26/17319), BMI (Calculated): (not recorded) No LMP for male patient. Physical Exam Constitutional: He is oriented to person, place, and time. He appears well-devel oped and well-nourished. HENT: Mouth/Throat: Oropharynx is clear and moist. Cardiovascular: Normal rate and regular rhythm. Pulmonary/Chest: Effort normal and breath sounds normal. He exhibits tenderness. Abdominal: Soft. There is no tenderness. Neurological: He is alert and oriented to person, place, and time. Skin: There is pallor. DIAGNOSTICS LAB: CBC WITH DIFFERENTIAL - Abnormal Result Value RBC 4.32 (*) HEMOGLOBIN 10.7 (*) HEMATOCRIT 32.9 (*) MCV 76.2 (*) MCH 24.8 (*) RDW 14.8 (*) PLATELETS 511 (*) MPV 8.1 (*) NEUTROPHIL ABSOLUTE 7.20 (*) MONOCYTE ABSOLUTE 0.96 (*) WBC 10.4 MCHC 32.5 RDW-STDEV 41.2 NEUTROPHILS 69 LYMPHOCYTES 20 MONOCYTES 9 EOSINOPHILS 1 BASOPHILS 0 IMMATURE GRANULOCYTES 0 LYMPHOCYTE ABSOLUTE 2.05 EOSINOPHIL ABSOLUTE 0.10 BASOPHILS ABSOLUTE 0.03 IMMATURE GRANULOCYTES ABSOLUTE 0.02 COMPREHENSIVE METABOLIC PANEL - Abnormal SODIUM 135 (*) CHLORIDE 96 (*) CREATININE 0.56 (*) GLUCOSE 150 (*) ALBUMIN 3.4 (*) POTASSIUM 4.4 CO2 25 CALCIUM 9.0 BUN 19 TOTAL PROTEIN 6.6 BILIRUBIN TOTAL 0.2 ALKALINE PHOSPHATASE 100 AST 19 ALT 13 GFR >60 GFR, >60 ANION GAP 14 TROPONIN - Abnormal TROPONIN T 0.01 (*) TROPONIN - Abnormal TROPONIN T 0.01 (*) RADIOLOGY: XR CHEST PA OR AP Radiologist Impression Impression: 1. Bibasilar atelectasis. EKG: NSR, no changes 98 PROCEDURES Procedures MEDICAL DECISION MAKING AND PLAN OF CARE cwp likely from URI Labs, ekg and cxr reviewed With copd hx will give dec/depo here and cover with zctk ED Course MDM Medications Administered During the ED Stay from 10/26/2017 0306 to 10/27/2017 0 254 Date/Time Order Dose Route Action 10/26/2017316 LORazepam (ATIVAN) 2 mg/mL injection 0.5 mg 0.5 mg IV Given 10/26/2017316 ketorolac (TORADOL) injection 15 mg 15 mg IV Given 10/26/2017316 sodium chloride 0.9 % flush injection 10 mL 10 mL IV Given 10/26/2017 0659 dexamethasone (DECADRON) injection 4 mg 4 mg IM Given 10/26/201759 methylPREDNISolone acetate (DEPO-Medrol) 40 mg/mL injection 40 mg 40 mg IM Given 10/26/2017 0657 azithromycin (ZITHROMAX) tablet 500 mg 500 mg Oral Given Discharge Medication List as of 10/26/2017 6:55 AM START taking these medications Details azithromycin (ZITHROMAX) 250 mg tablet Take 1 Tablet (250 mg) by mouth daily for 4 days., Disp-4 Tablet, R-0 CONTINUE these medications which have NOT CHANGED Details oxyCODONE (OxyCONTIN) 20 mg Controlled Release 12 hour crush resistant tablet Ta ke 1 Tablet (20 mg) by mouth every 12 hours., Disp-60 Tablet, R-0 simvastatin (ZOCOR) 40 mg tablet TAKE ONE TABLET (40MG) BY MOUTH EVERY DAY IN TH E EVENING, Disp-90 Tablet, R-1 ezetimibe (ZETIA) 10 mg tablet Take 1 Tab by mouth daily at bedtime., Disp-30 Ta blet, R-5 LORazepam (ATIVAN) 1 mg tablet TAKE ONE TABLET BY MOUTH 2 TIMES A DAY.., Disp-60 Tablet, R-2 ramipril (ALTACE) 5 mg capsule Take 1 Capsule (5 mg) by mouth daily., Disp-30 Ca psule, R-5 OLANZapine (ZyPREXA) 2.5 mg tablet Take 1 Tab by mouth daily at bedtime., Disp-3 0 Tablet, R-5 phenytoin sodium (DILANTIN) 100 mg extended release capsule Take 2 Capsules (200 mg) by mouth 2 times daily., Disp-120 Capsule, R-2 raNITIdine (ZANTAC) 150 mg tablet Take 1 Tablet (150 mg) by mouth daily at bedti me., Disp-30 Tablet, R-5 oxyCODONE-acetaminophen (PERCOCET) 10-325 mg Tablet TAKE 2 TABLETS EVERY 4 HOURS NEEDED FOR BREAKTHRU PAIN., Disp-30 Tablet, R-0 sennosides-docusate sodium (SENOKOT-S) 8.6-50 mg tablet Take 1 Tablet by mouth d aily., Disp-30 Tablet, R-5 traZODone (DESYREL) 50 mg tablet Take 1 Tab by mouth daily at bedtime.., Disp-30 Tablet, R-5 temazepam (RESTORIL) 7.5 mg capsule Take 1 Capsule (7.5 mg) by mouth nightly as needed for Insomnia., Disp-30 Capsule, R-2 gabapentin (NEURONTIN) 300 mg capsule Take 1 Capsule (300 mg) by mouth daily at bedtime., Disp-30 Capsule, R-5 FLUoxetine (PROzac) 20 mg capsule TAKE 2 CAPSULES BY MOUTH EVERY DAY.., Disp-60 Capsule, R-5 nitroglycerin (NITROSTAT) 0.4 mg Tablet, Sublingual DISSOLVE 1 TABLET UNDER TONG UE EVERY 5 MINUTES NEEDED FOR CHEST KULDEEP N. DO NOT EXCEED 3 DOSES., Disp-25 Ta blet, R-PRN bethanechol (URECHOLINE) 25 mg tablet TAKE ONE TABLET BY MOUTH FOUR TIMES A DAY, Disp-120 Tablet, R-3 fluticasone (FLONASE) 50 mcg/spray [place], Suspension Administer 2 Sprays in each nostril daily., Disp-16 Gram, R-PRN pioglitazone (ACTOS) 30 mg tablet Take 1 Tab by mouth daily., Disp-90 Tablet, R- 1 PROAIR HFA 90 mcg/actuation inhaler Take 2 Puffs by inhalation every 4 hours as needed for Shortness of Br eath., Disp-8.5 Gram, R-11 tamsulosin (FLOMAX) 0.4 mg capsule TAKE ONE CAPSULE BY MOUTH EVERY DAY 30 MINUTE S AFTER SUPPER, Disp-30 Capsule, R-11 fenofibrate nanocrystallized (TRICOR) 145 mg tablet Take 1 Tab by mouth daily supper., Disp-30 Tablet, R-11 isosorbide mononitrate (IMDUR) 60 mg Extended Release 24 hour tablet TAKE ONE TA BLET BY MOUTH 2 TIMES A DAY, Disp-60 Tablet, R-5 loratadine (CLARITIN) 10 mg tablet Take 1 Tab by mouth daily., Disp-30 Tablet, R -5 clopidogrel (PLAVIX) 75 mg Tablet Take 1 Tab by mouth daily., Disp-30 Tablet, R- 5 fluticasone (FLOVENT HFA) 110 mcg/actuation HFA Aerosol [...] am & pm prn, Disp-1 Package, R-0 MULTIVITAMIN PO Take 1 Tab by mouth daily with lunch. BETIMOL 0.5 % OP Drop Administer 1 Drop in both eyes 2 times daily. LAST VS BP: 103/59 (10/26/17 0320), Heart Rate: 98 bpm (10/26/17319), Resp: 20 (319), Temp: 98 F (36.7 C) (10/26/17319), Temp src: Temporal (10/26/17319), SpO2: 96 % (10/26/17319) CLINICAL IMPRESSION Final diagnoses: [R07.89] Anterior chest wall pain (Primary) [J20.9] Acute bronchitis, unspecified organism DISPOSITION, EDUCATION AND MEDICATION RECONCILIATION Medications reconciled. See after visit summary for patient education on discha rged patients. ED Disposition ED Disposition Condition User Date/Time Comment Discharge Sybil Caldwell APRN Tue Oct 26, 2017 6:49 AM ATTESTATION STATEMENTS [employer] documented in this encounter Plan of Treatment Not on filedocumented as of this encounter Procedures Comments Procedure Name Priority Date/Time Associated Diag nosis EKG 12 LEAD UNIT Stat 10/27/2017 PERFORMED 9:20 AM [employer] TROPONIN Stat 10/26/2017 6:00 AM [employer] XR CHEST PA OR AP 1 VW Stat 10/26/2017 3:21 AM [employer] CBC WITH DIFFERENTIAL Stat 10/26/2017 3:13 AM [employer] TROPONIN Stat 10/26/2017 3:13 AM [employer] COMPREHENSIVE METABOLIC Stat 10/26/2017 PANEL 3:13 AM [employer] documented in this encounter Results * EKG 12 LEAD UNIT PERFORMED (10/27/2017 9:20 AM [employer]) Narrative Performed At This result has an attachment that is n ot available. Procedure Note David Bernard MD - 10/27/2017 9:20 AM [employer] [address] [place] [address] Patient Name: OLIVERIO DALTON CSN: [id number] : 1950 Provider: David Bernard M.D. Admitted: 10/26/2017 ELECTROCARDIOGRAM DATE OF SERVICE: 10/26/2017 10/26/2017 at 0307. The rhythm is regula r, sinus in origin with a rate of 98 beats per minute. Slow R wave progression is seen across the anteroseptal chest leads. Limb leads show low voltage. Compared with previous tracing dated 2017, R waves are better seen in V2 and V3 previously. DIAGNOSIS: 1) Sinus rhythm, rate 98 beats per minute. 2) Low voltage limb leads. 3) Slow R wave progression, anteroseptal chest leads, possibly due to lead placement. Dictated by: David Bernard M.D./MEDQ D: [id number] V: [id number] cc: Claus Couch M.D. * TROPONIN (10/26/2017 6:00 AM [employer]) TROPONIN T 0.01 (H) <0.01 ng/mL [facility] - [facility] Specimen Blood Performing Organization Address [facility] Ph one Number [facility] CLIA# [id number] [place] [address] [address] * XR CHEST PA OR AP (10/26/2017 3:21 AM [employer]) Specimen Impressions Performed At Impression: INTERFACE SYSTEM 1. Bibasilar atelectasis. Narrative Performed At Chest, single view. Comparison 2017. INTERFACE SYSTEM History: Chest Pain Findings: Suboptimal inspiration. Bibas ilar atelectasis. No effusions. Heart size is within normal limits. Med deshaun sternotomy. Procedure Note Interface, [facility] Aok Incoming Radiology Results - 10/26/2017 6:45 AM [employer] Chest, single view. Comparison 2017. History: Chest Pain Findings: Suboptimal inspiration. Bibasilar atelectasis. No effusions. Heart size is within normal limits. Median sternotomy. Impression: 1. Bibasilar atelectasis. Performing Organization Address [facility] Ph one Number INTERFACE SYSTEM INTERFACE SYSTEM Refer to clinic/hospital department * TROPONIN (10/26/2017 3:13 AM [employer]) TROPONIN T 0.01 (H) <0.01 ng/mL [facility] [place] Specimen Blood Performing Organization Address [facility] Ph one Number [facility] CLIA# [id number] [place] [address] [address] [address] * COMPREHENSIVE METABOLIC PANEL (10/26/2017 3:13 AM [employer]) SODIUM 135 (L) 136 - 145 mmol/L [facility] [place] POTASSIUM 4.4 3.5 - 5.1 mmol/L [facility] [place] CHLORIDE 96 (L) 98 - 107 mmol/L [facility] [place] CO2 25 22 - 29 mmol/L [facility] [place] CALCIUM 9.0 8.8 - 10.2 mg/dL [facility] [place] BUN 19 8 - 23 mg/dL [facility] [place] CREATININE 0.56 (L) 0.67 - 1.17 mg/dL [facility] [place] GLUCOSE 150 (H) 70 - 100 mg/dL [facility] TOTAL PROTEIN 6.6 6.6 - 8.7 g/dL [facility] [place] ALBUMIN 3.4 (L) 3.5 - 5.2 g/dL [facility] [place] BILIRUBIN TOTAL 0.2 <=1.2 mg/dL [facility] [place] ALKALINE 100 40 - 129 U/L [facility] PHOSPHATASE [facility] - [facility] AST 19 <=41 U/L [facility] [place] ALT 13 10 - 50 U/L [facility] GFR >60 >=60 mL/min/1.73 sq [facility] Comment: meter LABORATORY eGFR has not been validated [facility] for use in the elderly (> 70 [...] result. GFR, >60 >=60 mL/min/1.73 sq [facility] meter [facility] - [place] ANION GAP 14 4 - 20 mmol/L [facility] [place] Specimen Blood Performing Organization Address City/State/Zipcode Ph one Number [facility] CLIA# [id number] [place] [address] [place] [address] [place] [address] * CBC WITH DIFFERENTIAL (10/26/2017 3:13 AM [employer]) WBC 10.4 3.6 - 11.1 K/uL [facility] [place] RBC 4.32 (L) 4.49 - 5.52 M/uL [facility] [place] HEMOGLOBIN 10.7 (L) 13.3 - 16.5 g/dL [facility] [place] HEMATOCRIT 32.9 (L) 40.7 - 48.9 % [facility] [place] MCV 76.2 (L) 82.7 - 97.1 fL [facility] [place] MCH 24.8 (L) 27.1 - 32.3 pg [facility] [place] MCHC 32.5 31.3 - 34.9 g/dL [facility] [place] RDW 14.8 (H) 11.5 - 14.7 % [facility] [place] RDW-STDEV 41.2 37.2 - 47.6 [facility] [place] PLATELETS 511 (H) 136 - 352 K/uL [facility] [place] MPV 8.1 (L) 8.6 - 11.8 [facility] [place] NEUTROPHILS 69 44 - 74 % [facility] [place] LYMPHOCYTES 20 16 - 44 % [facility] [place] MONOCYTES 9 4 - 11 % [facility] [place] EOSINOPHILS 1 0 - 6 % [facility] [place] BASOPHILS 0 0 - 1 % [facility] [place] IMMATURE 0 0 - 1 % [facility] GRANULOCYTES [facility] [place] NEUTROPHIL 7.20 (H) 1.54 - 7.18 K/uL [facility] ABSOLUTE [facility] [place] LYMPHOCYTE 2.05 0.69 - 3.61 K/uL [facility] [place] MONOCYTE 0.96 (H) 0.19 - 0.95 K/uL [facility] [place] EOSINOPHIL 0.10 0.00 - 0.44 K/uL [facility] [place] BASOPHILS 0.03 0.00 - 0.10 K/uL [facility] [place] IMMATURE 0.02 0.00 - 0.09 K/uL [facility] GRANULOCYTES [facility] ABSOLUTE [facility] - [place] Specimen Blood Performing Organization Address City/State/[facility] Ph one Number [facility] CLIA# [id number] [place] [address] [place] [address] [place] [address] documented in this encounter Visit Diagnoses Diagnosis Anterior chest wall pain - Primary Painful respiration Acute bronchitis, unspecified organism documented in this encounter Administered Medications Action Date Dose Rate Site Medication Order MAR Action 10/26/2017 6:57 AM [employer] 500 mg azithromycin (ZITHROMAX) tablet 500 mg Given 500 mg, Oral, ONE TIME ONLY, 1 dose, Tu e 10/26/17 at 0700, Routine, Antibiotic Indication: Upper Respiratory Tract / ENT Infection 10/26/2017 6:59 AM [employer] 4 mg Buttock, Left dexamethasone (DECADRON) injection 4 mg Given 4 mg, IM, ONE TIME ONLY, 1 dose, Wed10/26/17 at 0700, Stat 10/26/2017 3:17 AM [employer] 15 mg ketorolac (TORADOL) injection 15 mg Given 15 mg, IV, ONE TIME ONLY, 1 dose, 10/26/17 at 0315, Stat 10/26/2017 3:17 AM [employer] 0.5 mg LORazepam (ATIVAN) 2 mg/mL injection 0.5 Given mg 0.5 mg, IV, ONE TIME ONLY, 1 dose, 10/26/17 at 0315, Routine 10/26/2017 6:59 AM [employer] 40 mg Buttock, Left methylPREDNISolone acetate (DEPO-Medrol) Given 40 mg/mL injection 40 mg 40 mg, IM, ONE TIME ONLY, 1 dose, Wed10/26/17 at 0700, Stat 10/26/2017 3:17 AM [employer] 10 mL sodium chloride 0.9 % flush injection 10 Given mL 10 mL, IV, SEE ADMIN INSTRUCTIONS, Starting Wed10/26/17 at 0316, Until 10/26/17 at 0959, Routine documented in this encounter Additional Health Concerns Assessment Noted Time A Hypertension Plan of Care has been documented for t pati patient 02/12/2017 12:54 PM CDT documented as of this encounter
--- OUTSIDE RECORDS SUMMARY | 2020-03-24 13:54 | XMS REPORT | Encounter Summary ---
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 [address] [place] [address] Olecranon bursitis of right elbow (Prima ry Dx) 11/15/2017 Office Visit [facility] [place] [address] [place] [address] Social History Date Tobacco Use [...] Inhaled Oxygen Concentration 68.9 kg (152 lb) 11/15/2017 1: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 he states the left is doing well. He's not had any new injury to the right elbow. on examination, fluctuance, right olecranon bursa. No warmth, no erythema. His integument. Neurovascular status is intact. Using sterile technique. 19 cc of heme aspirated from the right olecranon bursa tolerated well. He's given a set of elbow pads will plan to recheck him back when necessary he'll call if symptoms ersist keep pressure off of the elbow. Ice H BLEACHING SUPERVISOR documented in this encounter Plan of Treatment Not on filedocumented as of this encounter Visit Diagnoses Diagnosis Olecranon bursitis of right elbow - Farhana matta Olecranon bursitis documented in this encounter Additional Health Concerns Assessment Noted Time A Hypertension Plan of Care has been documented for t pati patient 02/12/2017 12:54 PM CDT documented as of this encounter
--- OUTSIDE RECORDS SUMMARY | 2020-03-24 13:54 | XMS REPORT | Encounter Summary ---
Author Author [facility] Organization [facility] Address Unknown Phone Unavailable Care Team Providers Care Director Of Medical Education Name Role Phone Claus Couch MD PCP Reason for Visit * Auth/Cert Referred By Contact Referred To Contact Status Reason Specialty Diagnoses / Procedures [facility] [place] [id number] [place] [address] Home Health Encounter Details Care Team Description Date Type Department Marissa Pitts RN SN - OASIS RECERTIFICATION 11/06/2017 [facility] [address] [place] [address] Social History Date Tobacco Use [...] - SN - OASIS RECERT Discipline - [facility] Status Goals Interventions Problem Descriptio Start Date n Active - 2 problem interventions scheduled/documented in this visit Medications Management 09/08/2017 Disciplines: of home [facility] medication s Active - 1 problem intervention scheduled/documented in this visit Physical Discomfort Alteration 09/08/2017 Disciplines: in comfort [facility] Active - 1 problem intervention scheduled/documented in this visit Skilled Observation and Skilled 09/08/2017 Assessment nursing Disciplines: observatio [facility] n and assessment . Variance Visit Notes Intervention Associated Status Problem/Go al Skilled assessment Problem: Completed medications Medication Description: [...]
--- OUTSIDE RECORDS SUMMARY | 2020-03-24 13:54 | XMS REPORT | Encounter Summary ---
Author Author [facility] Organization [facility] Address Unknown Phone Unavailable Care Team Providers Care Supervisor Files Name Role Phone Claus Couch MD PCP Reason for Visit * Reason Comments Follow Up F/U Elbow Pain Encounter Details Care Team Description Date Type Department Jona Doran, JONNATHAN [address] [place] [address] Leg length discrepancy (Primary Dx); Left hip pain; Olecranon bursitis of right elbow 11/04/[address] [facility] [address] [address] Social History Date Tobacco Use [...] Inhaled Oxygen Concentration 68.9 kg (152 lb) 11/04/2017 12:59 PM OXYACETYLENE BURNER Weight 167.6 cm (5' 6") 11/04/2017 12:59 PM OXYACETYLENE BURNER Height 24.53 11/04/2017 12:59 PM OXYACETYLENE BURNER Body Mass Index documented in this encounter Progress Notes * Jona Doran APRN - 11/04/2017 4:38 PM OXYACETYLENE BURNER Follow-up right elbow swelling. I had drained olecranon bursa and injected it with cortisone. The other day it seems to come back. He would like it drained in No new injury. On examination, fluctuance, right olecranon. Mild tenderness, no warmth, no len thema. Integument neurovascular status is intact. The olecranon bursa is drained, 7 cc of heme, no pus. He tolerated this well. Continue to pad the elbow. We'll plan to recheck back when necessary right elbo w. He also complains of soreness left hip. He is status post ORIF left hip fracture in [place], [place] approximately 7 mon ths ago. It was noted during an emergency room visit in April. The fracture was incompletely healed and there was slight varus alignment of the basal cervical fracture. He was scheduled for follow-ups. His surgeon in [place]. He complain s of this today. The first time in the office since I saw him postop. In April. He's had no new injuries. He also states he's had a leg length discrepancy, left shorter than the right. On exam, left hip. There is no soreness with internal/external rotation today. He does have some limited motion is integument neurovascular status is intact. There is no swelling. He does have about an inch or so of shortening, maybe a little bit more left lower extremity versus the right. He's given a heel lift f or this today. I've instructed him if he has persistent soreness in the left hip. I like to ge t an x-ray of the left hip. He did not want x-ray today. We'll plan to recheck him back when necessary CETYLENE BURNER documented in this encounter Plan of Treatment Not on filedocumented as of this encounter Results * XR HIP 2 OR 3 VIEWS LT (11/30/2017 10:04 AM OXYACETYLENE BURNER) Specimen Impressions Performed At Impression: Fraction of [...] abnormality. Incidental, penile implant. Procedure Note Interface, [facility] Incoming Radiology Results - 11/30/2017 10:18 AM OXYACETYLENE BURNER Left hip, AP pelvis and lateral hip [...] encounter Visit Diagnoses Diagnosis Leg length discrepancy - Primary Unequal leg length (acquired) Left hip pain Pain in joint, pelvic region and thigh Olecranon bursitis of right elbow Olecranon bursitis documented in this encounter Additional Health Concerns Assessment Noted Time A Hypertension Plan of Care has been documented for t pati patient 02/12/2017 12:54 PM CDT documented as of this encounter
--- OUTSIDE RECORDS SUMMARY | 2020-03-24 13:54 | XMS REPORT | Encounter Summary ---
Author Author [facility] Organization [facility] Address Unknown Phone Unavailable Care Team Providers Care Intranet Developer Name Role Phone Claus Couch MD PCP Reason for Visit * Reason Comments Medication Refill Encounter Details Care Team Description Date Type Department Claus Couch MD [address] [place] [address] 10/20/2017 Refill [facility] [place] [address] [place] [address] Social History Date Tobacco Use [...]
--- OUTSIDE RECORDS SUMMARY | 2020-03-24 13:54 | XMS REPORT | Encounter Summary ---
Author Author [facility] Organization [facility] Address Unknown Phone Unavailable Care Team Providers Care Cost Clerk Name Role Phone Claus Couch MD PCP Reason for Visit * Auth/Cert Referred By Contact Referred To Contact Status Reason Specialty Diagnoses / Procedures [facility] [place] [id number] [place] [address] Home Health Encounter Details Care Team Description Date Type Department Marissa Pitts RN SN - HOME VISIT 11/09/2017 Home Care Visit [facility] [address] [place] [address] Social History Date Tobacco Use [...] Vital Sign - - Blood Pressure 88 11/09/2017 1:30 PM SUPERVISOR FELTING Pulse - - Temperature 22 11/09/2017 1:30 PM SUPERVISOR FELTING Respiratory Rate 96% 11/09/2017 1:30 PM SUPERVISOR FELTING Oxygen Saturation - - Inhaled Oxygen Concentration [...] and care of pressure ulcer Active - 1 problem intervention scheduled/documented in [...] Notes Intervention Associated Status Problem/Go al Instruct prevention of Problem: Completed pressure ulcers [...]
--- OUTSIDE RECORDS SUMMARY | 2020-03-24 13:54 | XMS REPORT | Encounter Summary ---
Author [facility] Address Unknown Phone Unavailable Care Team Providers Care Marble Installation Helper Name Role Phone Claus Couch MD PCP Reason for Visit * Auth/Cert Referred By Contact Referred To Contact Status Reason Specialty Diagnoses / Procedures [facility] [place] [id number] [place] [address] Home Health Encounter Details Care Team Description Date Type Department Marissa Pitts RN SN - HOME VISIT 10/19/2017 Home Care Visit [facility] [address] [place] [address] Social History Date Tobacco Use [...] Vital Sign - - Blood Pressure 90 10/19/2017 1:15 PM LINUX DEVOPS ENGINEER Pulse - - Temperature 20 10/19/2017 1:15 PM LINUX DEVOPS ENGINEER Respiratory Rate 95% 10/19/2017 1:15 PM LINUX DEVOPS ENGINEER Oxygen Saturation - - Inhaled Oxygen Concentration [...] - SN - HOME VISIT Discipline - Alf Status Goals Interventions Problem Descriptio Start Date n Resolved on 10/19/2017 - 1 problem intervention scheduled/documented in this visit Decubitus Care Decubitus 09/08/2017 Disciplines: care Alf Active - 2 problem interventions scheduled/documented in this visit Home Safety Home 09/08/2017 Disciplines: safety Alf Active - 2 problem interventions scheduled/documented in this visit Knowledge deficit on Infection 09/08/2017 preventing infection with prevention therapies . Disciplines: Alf Active - 1 problem intervention scheduled/documented in this visit Learning/Teaching Needs - Learning/t 09/08/2017 Pressure Ulcer eaching Disciplines: needs re: Alf prevention and care of pressure ulcer Active - 2 problem interventions scheduled/documented in this visit Medications Management 09/08/2017 Disciplines: of home Alf medication s Active - 1 problem intervention scheduled/documented in this visit Physical Discomfort Alteration 09/08/2017 Disciplines: in comfort Alf Active - 1 problem intervention scheduled/documented in this visit Pulse Oximetry Skilled 09/08/2017 Disciplines: assessment Alf and monitoring of O2 saturation s. Active - 1 problem intervention scheduled/documented in this visit Skilled Observation and Skilled 09/08/2017 Assessment nursing Disciplines: observatio Alf n and assessment . Variance Visit Notes Intervention Associated Status Problem/Go al Skilled assessment wound Problem: Completed Description: Decubitus Assess and document wound Care location, size of visible granulation tissue or epithelialization, necrotic tissue, s/s of infection. Assess and document exudate volume, color, consistency, and odor. Instruct home safety Problem: Completed Description: Home [...] Caregiver in strategies infection to prevent with infection:[place] therapies precautions, avoid crowds and persons with [...]
--- OUTSIDE RECORDS SUMMARY | 2020-03-24 13:55 | XMS REPORT | Encounter Summary ---
Author Author [facility] Organization [facility] Address Unknown Phone Unavailable Care Team Providers Care Polymer Specialist Name Role Phone Claus Couch MD PCP Encounter Details Care Team Description Date Type Department Mary Zhou MD NO ADDRESS ON FILE 09/27/2017 Hospital [facility] Encounter [facility] [address] [place] [address] Social History Date Tobacco Use [...] Signs Reading Time Taken Comments Vital Sign 96/46 09/27/2017 1:00 PM STITCH BONDING MACHINE OPERATOR Blood Pressure 84 09/27/2017 1:00 PM STITCH BONDING MACHINE OPERATOR Pulse 36.4 C (97.6 F) 09/27/2017 1:00 PM STITCH BONDING MACHINE OPERATOR Temperature 20 09/27/2017 1:00 PM STITCH BONDING MACHINE OPERATOR Respiratory Rate - - Oxygen Saturation - - Inhaled Oxygen Concentration 65.2 kg (143 lb 12.8 oz) 09/27/2017 1:00 PM STITCH BONDING MACHINE OPERATOR Weight 167.6 cm (5' 6") 09/27/2017 1:00 PM STITCH BONDING MACHINE OPERATOR Height 23.21 09/27/2017 1:00 PM STITCH BONDING MACHINE OPERATOR Body Mass Index documented in this encounter [...] Drop in both eyes 2 times daily. 07/21/2017 01/19/2018 FLUoxetine (PROzac) 20 mg TAKE 2 60 Capsule 5 capsule CAPSULES BY MOUTH EVERY DAY. 07/21/2017 01/18/2018 traZODone (DESYREL) 50 mg Take 1 Tab by 30 Tablet 5 tablet mouth daily at bedtime. 09/24/2017 10/20/2017 oxyCODONE (OxyCONTIN) 20 Take 1 Tablet 60 Tablet 0 mg Controlled Release 12 (20 mg) by hour crush resistant mouth every tablet 12 hours. 09/24/2017 01/19/2018 raNITIdine (ZANTAC) 150 Take 1 Tablet 30 Tablet 5 mg tablet (150 mg) by mouth daily at bedtime. 09/09/2017 10/05/2017 ramipril (ALTACE) 5 mg Take 1 30 Capsule 0 capsule Capsule (5 mg) by mouth daily. 07/21/2017 01/19/2018 traZODone (DESYREL) 50 mg Take 1 Tab by 30 Tablet 5 tablet mouth daily at bedtime.. 07/21/2017 01/08/2018 temazepam (RESTORIL) 7.5 Take 1 30 Capsule 2 mg capsule Capsule (7.5 mg) by mouth nightly as needed for Insomnia. 07/21/2017 10/20/2017 LORazepam (ATIVAN) 1 mg TAKE ONE 60 Tablet 2 tablet TABLET BY MOUTH 2 TIMES A DAY.. 07/21/2017 01/05/2018 FLUoxetine (PROzac) 20 mg TAKE [...] (FLONASE) 50 Administer 2 16 Gram mcg/spray [place], Sprays in Suspension each nostril daily. 07/07/2017 [...] mouth daily 145 mg tablet with supper. 04/09/2017 10/20/2017 simvastatin (ZOCOR) 40 mg TAKE ONE 90 Tablet 1 tablet TABLET (40MG) BY MOUTH EVERY DAY IN THE EVENING 02/01/2017 11/23/2017 clopidogrel (PLAVIX) 75 Take 1 Tab by 30 Tablet 5 mg Tablet mouth daily. 12/29/2016 10/20/2017 ezetimibe (ZETIA) 10 mg Take 1 Tab by 30 Tablet 5 tablet mouth daily at bedtime. 12/14/2016 10/05/2017 OLANZapine (ZyPREXA) 2.5 Take 1 Tab by 30 Tablet 5 mg tablet mouth daily at bedtime. 09/10/2010 04/26/2018 MULTIVITAMIN PO Take 1 Tab by 0 mouth daily with lunch. documented as of this encounter Progress Notes * Mary Zhou MD - 09/28/2017 5:28 PM STITCH BONDING MACHINE OPERATOR Subjective: Patient no new complaints. Current Outpatient Prescriptions Medication Sig Dispense Refill oxyCODONE (OxyCONTIN) 20 mg Controlled Release 12 hour crush resistant table t Take 1 Tablet (20 mg) by mouth every 12 hours. 60 Tablet 0 raNITIdine (ZANTAC) 150 mg tablet Take 1 Tablet (150 mg) by mouth daily at b edtime. 30 Tablet 5 oxyCODONE-acetaminophen (PERCOCET) 10-325 mg Tablet TAKE 2 TABLETS EVERY 4 H OURS NEEDED FOR BREAKTHRU PAIN. 30 Tablet 0 ramipril (ALTACE) 5 mg capsule Take 1 Capsule (5 mg) by mouth daily. 30 Caps ule 0 sennosides-docusate sodium (SENOKOT-S) 8.6-50 mg tablet Take 1 Tablet by henrik th daily. 30 Tablet 5 traZODone (DESYREL) 50 mg tablet Take 1 Tab by mouth daily at bedtime.. 30 T ablet 5 temazepam (RESTORIL) 7.5 mg capsule Take 1 Capsule (7.5 mg) by mouth nightly as needed for Insomnia. 30 Capsule 2 LORazepam (ATIVAN) 1 mg tablet TAKE ONE TABLET BY MOUTH 2 TIMES A DAY.. 60 T ablet 2 FLUoxetine (PROzac) 20 mg capsule TAKE 2 CAPSULES BY MOUTH EVERY DAY.. 60 Ca psule 5 nitroglycerin (NITROSTAT) 0.4 mg Tablet, Sublingual DISSOLVE 1 TABLET UNDER TONGUE EVERY 5 MINUTES NEEDED FOR CHEST KULDEEP N. DO NOT EXCEED 3 DOSES. 25 Tabl et PRN bethanechol (URECHOLINE) 25 mg tablet TAKE ONE TABLET BY MOUTH FOUR TIMES A DAY 120 Tablet 3 fluticasone (FLONASE) 50 mcg/spray [place], Suspension Administer 2 Sprays in each nostril daily. 16 Gram PRN pioglitazone (ACTOS) 30 mg tablet Take 1 Tab by mouth daily. 90 Tablet 1 PROAIR HFA 90 mcg/actuation inhaler Take 2 Puffs by inhalation every 4 hours as needed for Shortness of Br eath. 8.5 Gram 11 tamsulosin (FLOMAX) 0.4 mg capsule TAKE ONE CAPSULE BY MOUTH EVERY DAY 30 SC NUTES AFTER SUPPER 30 Capsule 11 fenofibrate nanocrystallized (TRICOR) 145 mg tablet Take 1 Tab by mouth jono y with supper. 30 Tablet 11 simvastatin (ZOCOR) 40 mg tablet TAKE ONE TABLET (40MG) BY MOUTH EVERY DAY I N THE EVENING 90 Tablet 1 phenytoin sodium (DILANTIN EXTENDED) 100 mg extended release capsule Take 20 0 mg by mouth 2 times daily . clopidogrel (PLAVIX) 75 mg Tablet Take 1 Tab by mouth daily. 30 Tablet 5 ezetimibe (ZETIA) 10 mg tablet Take 1 Tab by mouth daily at bedtime. 30 Tabl et 5 OLANZapine (ZyPREXA) 2.5 mg tablet Take 1 Tab by mouth daily at bedtime. 30 Tablet 5 fluticasone (FLOVENT HFA) 110 mcg/actuation HFA Aerosol Inhaler Take 1 Puff by inhalation 2 times daily.. 12 Gram 5 polyethylene glycol 3350 (MIRALAX) 17 gram/dose Powder Take 1 SCOOP (17 Gram ) by mouth daily Dissolve in 8 ounces of fluid and drink entire liquid. 527 Gram 0 blood sugar diagnostic (ACCU-CHEK ACTIVE TEST) Misc Strp In the am & pm prn 1 Package 0 MULTIVITAMIN PO Take 1 Tab by mouth daily with lunch. BETIMOL 0.5 % OP Drop Administer 1 Drop in both eyes 2 times daily. gabapentin (NEURONTIN) 300 mg capsule Take 1 Capsule (300 mg) by mouth daily at bedtime. (Patient not taking: Reported on 09/21/2017) 30 Capsule 5 isosorbide mononitrate (IMDUR) 60 mg Extended Release 24 hour tablet TAKE ON E TABLET BY MOUTH 2 TIMES A DAY (Patient not taking: No sig reported) 60 Tablet 5 loratadine (CLARITIN) 10 mg tablet Take 1 Tab by mouth daily. (Patient not t aking: No sig reported) 30 Tablet 5 Current Facility-Administered Medications Medication Dose Route Frequency Provider Last Rate Last Dose betamethasone acetate & sod phos (CELESTONE SOLUSPAN) 6 mg/mL injection 12 mg 12 mg Intra-arTICular ONCE Jona Doran APRN betamethasone acetate & sod phos (CELESTONE SOLUSPAN) 6 mg/mL injection 12 mg 12 mg Intra-arTICular ONCE Jona Doran APRN Facility-Administered Medications Ordered in Other Encounters Medication Dose Route Frequency Provider Last Rate Last Dose sodium chloride 0.9% infusion IV Continuous Macy Vaughn NP 250 mL/hr at 09/03/17 1245 sodium chloride 0.9 % flush injection 3 mL 3 mL IV See Admin Notes Macy Vaughn NP 3 mL at 09/03/17 1130 Objective: BP 96/46 (BP Location: Left arm, Patient Position (BP): Sitting) | Pulse 84 | Temp 97.6 F (36.4 C) (Tympanic) | Resp 20 | Ht 5' 6" (1.676 m) | Wt 65.2 kg (143 lb 12.8 oz) | BMI 23.21 kg/m General appearance: alert, in no distress Skin: both buttock ulcers closed. Hospital Encounter on 09/24/17 (from the past 336 hour(s)) CBC WITH DIFFERENTIAL Collection Time: 09/24/17 8:56 AM Result Value Ref Range WBC 10.8 3.6 - 11.1 K/uL RBC 3.98 (L) 4.49 - 5.52 M/uL HEMOGLOBIN 10.4 (L) 13.3 - 16.5 g/dL HEMATOCRIT 32.6 (L) 40.7 - 48.9 % MCV 81.9 (L) 82.7 - 97.1 fL MCH 26.1 (L) 27.1 - 32.3 pg MCHC 31.9 31.3 - 34.9 g/dL RDW 16.9 (H) 11.5 - 14.7 % RDW-STDEV 50.0 (H) 37.2 - 47.6 fL PLATELETS 621 (H) 136 - 352 K/uL MPV 7.8 (L) 8.6 - 11.8 fL NEUTROPHILS 78 (H) 44 - 74 % LYMPHOCYTES 13 (L) 16 - 44 % MONOCYTES 7 4 - 11 % EOSINOPHILS 1 0 - 6 % BASOPHILS 0 0 - 1 % IMMATURE GRANULOCYTES 1 0 - 1 % NEUTROPHIL ABSOLUTE 8.41 (H) 1.54 - 7.18 K/uL LYMPHOCYTE ABSOLUTE 1.42 0.69 - 3.61 K/uL MONOCYTE ABSOLUTE 0.80 0.19 - 0.95 K/uL EOSINOPHIL ABSOLUTE 0.07 0.00 - 0.44 K/uL BASOPHILS ABSOLUTE 0.03 0.00 - 0.10 K/uL IMMATURE GRANULOCYTES ABSOLUTE 0.05 0.00 - 0.09 K/uL COMPREHENSIVE METABOLIC PANEL Collection Time: 09/24/17 8:56 AM Result Value Ref Range SODIUM 134 (L) 136 - 145 mmol/L POTASSIUM 4.4 3.5 - 5.1 mmol/L CHLORIDE 95 (L) 98 - 107 mmol/L CO2 24 22 - 29 mmol/L CALCIUM 9.4 8.8 - 10.2 mg/dL BUN 13 8 - 23 mg/dL CREATININE 0.56 (L) 0.67 - 1.17 mg/dL GLUCOSE 228 (H) 70 - 100 mg/dL TOTAL PROTEIN 6.9 6.6 - 8.7 g/dL ALBUMIN 3.6 3.5 - 5.2 g/dL BILIRUBIN TOTAL 0.2 <=1.2 mg/dL ALKALINE PHOSPHATASE 131 (H) 40 - 129 U/L AST 18 <=41 U/L ALT 11 10 - 50 U/L GFR >60 >=60 mL/min/1.73 sq meter GFR, >60 >=60 mL/min/1.73 sq meter ANION GAP 15 4 - 20 mmol/L LIPID PANEL Collection Time: 09/24/17 8:56 AM Result Value Ref Range CHOLESTEROL 139 <200 mg/dL TRIGLYCERIDE 159 (H) <150 mg/dL HDL 49 40 - 59 mg/dL LDL CALCULATED 58 <100 mg/dL NON-HDL CHOLESTEROL 90 <130 mg/dL Narrative TOTAL CHOLESTEROL mg/dL Desirable [...] Guidelines Reference Ranges for Lipid Panels (NCEP/AMA) HEMOGLOBIN A1C Collection Time: 09/24/17 8:56 AM Result Value Ref Range HEMOGLOBIN A1C 5.0 4.8 - 5.9 % EST. AVG GLUCOSE, A1C 97 mg/dL *Note: Due to a large number of results and/or encounters for the requested time period, some results have not been displayed. A complete set of results can be found in Results Review. Assessment: Bilateral buttock ulcers both healed. Plan: No orders of the defined types were placed in this encounter. Wound management discussed with Wound Care nurse, see detailed note. Instruction provided by Wound Care Nurse Staff. Follow up appointment given. CH BONDING MACHINE OPERATOR * Sheela Valentine, RN - 09/27/2017 1:10 PM STITCH BONDING MACHINE OPERATOR WOUND CARE TREATMENT NOTE [id number] Patient Name: Oliverio Dalton : 1950 Visit # 4 Date: 09/27/2017 Charges Time In: 1315 Time Out: 1345 Total Time:15 min Medical Diagnosis: Patient Active Problem List Diagnosis Code Renal stone N20.0 Essential hypertension I10 Seizure R56.9 Hypertrophy of prostate without urinary obstruction and other lower urinary tract symptoms (LUTS) N40.0 Neurogenic bladder N31.9 Unspecified glaucoma(365.9) H40.9 Bipolar disorder, unspecified F31.9 Hyperlipidemia E78.5 Tubular adenoma D36.9 Status post laparoscopic appendectomy Z90.49 Umbilical hernia without mention of obstruction or gangrene K42.9 Bradycardia R00.1 Back pain M54.9 LFT elevation R79.89 Osteoarthritis of right knee M17.11 Carpal tunnel syndrome G56.00 Diabetes mellitus E11.9 CAD (coronary artery disease) I25.10 COPD (chronic obstructive pulmonary disease) J44.9 Seizure disorder G40.909 Depression F32.9 Suicidal behavior R46.89 Status post colonoscopy Z98.890 Status post right inguinal hernia repair Z98.890, Z87.19 Ulcers of both lower legs, limited to breakdown of skin L97.911, L97.921 Cigarette dependence F17.210 Closed displaced fracture of middle phalanx of right little finger S62.626A Left hip pain M25.552 Hyponatremia E87.1 Frequent falls R29.6 Acute cystitis without hematuria N30.00 Hyponatremia E87.1 Oral thrush B37.0 Pressure ulcer of coccygeal region, stage 3 L89.153 Decubitus ulcer of left buttock, stage 3 L89.323 Decubitus ulcer of right buttock, stage 3 L89.313 Treatment Diagnosis: stage 3 pressure ulcer coccyx, and right and left buttock Subjective Family member thinks areas are healed. She reports that she took patient for a doctor appointment yesterday and he was miserable because she forgot to take his waffle cushion. She reports he sits on it everywhere he goes. Problem List diabetes Alteration in skin integrity Alternation in comfort Fall Risk Objective See Doc Flow Sheets for wound measurements and information. Exam reveals not skin breakdown on coccyx or bilateral gluteal folds. Skin is re d but dry and closed. He is using Waffle cushion and has air mattress on his ho spital bed. Caregiver states he has improved bladder control, "making it to the bathroom" and no problems with bowel control. He wears knit boxer shorts. She states he has Charan Antifungal at home. Dr Zhou in to examine. Plan: Discharge from outpatient wound clinic, continue factory expert use of cushion and reposition ing, and apply Charan Antifungal Barrier Cream at least twice daily. Right Pulse Right Edema Left Pulse Left Edema Assessment Short Term / Fpc goals met Education Reviewed home plan with Patient and caregiver, verbalize understanding Plan Home program Comments: Discharge from outpatient wound clinic, all wounds closed and resurfa apolinar. Contact Information [facility] [address] [place] [phone] Phone - Please leave a message CH BONDING MACHINE OPERATOR documented in this encounter Plan of Treatment Not on filedocumented as of this encounter Visit Diagnoses Not on filedocumented in this encounter Additional Health Concerns Assessment Noted Time A Hypertension Plan of Care has been documented for t pati patient 02/12/2017 12:54 PM CDT documented as of this encounter
--- OUTSIDE RECORDS SUMMARY | 2020-03-24 13:55 | XMS REPORT | Encounter Summary ---
Author Author [facility] Organization [facility] Address Unknown Phone Unavailable Care Team Providers Care Paper Twister Tender Name Role Phone Claus Couch MD PCP Reason for Visit * Auth/Cert Referred By Contact Referred To Contact Status Reason Specialty Diagnoses / Procedures [facility] [address] [place] [address] Home Health Encounter Details Care Team Description Date Type Department Armida Bryson MSW CASE COMMUNICATION 10/11/2017 [facility] [address] [place] [address] Social History Date Tobacco Use [...]
--- OUTSIDE RECORDS SUMMARY | 2020-03-24 13:55 | XMS REPORT | Encounter Summary ---
Author Author [facility] Organization [facility] Address Unknown Phone Unavailable Care Team Providers Care Operations Label Clerk Name Role Phone Claus Couch MD PCP Reason for Visit * Reason Comments Medication Refill Encounter Details Care Team Description Date Type Department Claus Couch MD [address] [place] [address] 10/05/2017 Refill [facility] [place] [address] [place] [address] Social History Date Tobacco Use [...]
--- OUTSIDE RECORDS SUMMARY | 2020-03-24 13:55 | XMS REPORT | Encounter Summary ---
Author Author [facility] Organization [facility] Address Unknown Phone Unavailable Care Team Providers Care Wrapper Leaf Inspector Name Role Phone Claus Couch MD PCP Reason for Visit * Auth/Cert Referred By Contact Referred To Contact Status Reason Specialty Diagnoses / Procedures [facility] Home Health [place] [id number] [place] [address] Home Health Encounter Details Care Team Description Date Type Department Armida Bryson MSW CASE COMMUNICATION 10/06/2017 [facility] [address] [place] [address] Social History Date Tobacco Use [...]
--- OUTSIDE RECORDS SUMMARY | 2020-03-24 13:55 | XMS REPORT | Encounter Summary ---
Author Author [facility] Organization [facility] Address Unknown Phone Unavailable Care Team Providers Care Butter Melter Name Role Phone Claus Couch MD PCP Reason for Visit * Auth/Cert Referred By Contact Referred To Contact Status Reason Specialty Diagnoses / Procedures [facility] [place] [address] [place] [address] Home Health Encounter Details Care Team Description Date Type Department Marissa Pitts RN SN - HOME VISIT 09/21/2017 Home Care Visit [facility] [address] [place] [address] Social History Date Tobacco Use [...] Signs Reading Time Taken Comments Vital Sign 128/76 09/21/2017 11:30 AM ROOF PLUMBER Blood Pressure 62 09/21/2017 11:30 AM ROOF PLUMBER Pulse - - Temperature 20 09/21/2017 11:30 AM ROOF PLUMBER Respiratory Rate 97% 09/21/2017 11:30 AM ROOF PLUMBER Oxygen Saturation - - Inhaled Oxygen Concentration [...] visit [facility] 09/08/2017 Disciplines: care Senior Care Active - 2 problem interventions scheduled/documented in this visit Home Safety Home 09/08/2017 Disciplines: safety Senior Care Active - 1 problem intervention scheduled/documented in this visit Learning/Teaching Needs - Learning/t 09/08/2017 Pressure Ulcer eaching Disciplines: needs re: Senior Care prevention and care of pressure ulcer Active [...] instruct Caregiver and monitor for proper administration. .Reconciled home medications with hospital discharge medication orders. Pt. is taking medication as prescribed with no discrepancies or medication related problems indicated. Skilled assessment Problem: Completed medications Medication Description: [...]
--- OUTSIDE RECORDS SUMMARY | 2020-03-24 13:55 | XMS REPORT | Encounter Summary ---
Author Author [facility] Organization [facility] Address Unknown Phone Unavailable Care Team Providers Care Md Senior Research Scientist Name Role Phone Claus Couch MD PCP Reason for Visit * Auth/Cert Referred By Contact Referred To Contact Status Reason Specialty Diagnoses / Procedures [facility] Home Health [place] [address] [place] [address] Home Health Encounter Details Care Team Description Date Type Department Armida Bryson MSW CASE COMMUNICATION 10/08/2017 [facility] [address] [place] [address] Social History Date Tobacco Use [...]
--- OUTSIDE RECORDS SUMMARY | 2020-03-24 13:55 | XMS REPORT | Encounter Summary ---
Author Author [facility] Organization [facility] Address Unknown Phone Unavailable Care Team Providers Care Tie Cutter Name Role Phone Claus Couch MD PCP Reason for Visit * Reason Comments Medication Refill Encounter Details Care Team Description Date Type Department Claus Couch MD [address] [place] [address] 09/29/2017 Refill [facility] [place] [address] [place] [address] Social History Date Tobacco Use [...]
--- OUTSIDE RECORDS SUMMARY | 2020-03-24 13:55 | XMS REPORT | Encounter Summary ---
Author Author [facility] Organization [facility] Address Unknown Phone Unavailable Care Team Providers Care Senior Associate Name Role Phone Claus Couch MD PCP Reason for Visit * Reason Comments Medication Refill Encounter Details Care Team Description Date Type Department Jada Fernandez MD NO ADDRESS ON FILE 10/05/2017 Refill [facility] [address] [id number] Social History Date Tobacco Use Types Packs/Day [...]
--- OUTSIDE RECORDS SUMMARY | 2020-03-24 13:55 | XMS REPORT | Encounter Summary ---
Author Author [facility] Organization [facility] Address Unknown Phone Unavailable Care Team Providers Care Insulation Worker Interior Surface Name Role Phone Claus Couch MD PCP Reason for Visit * Reason Comments Medication Refill Encounter Details Care Team Description Date Type Department Claus Couch MD [address] [place] [address] 09/09/2017 Refill [facility] [place] [address] [place] [address] Social History Date Tobacco Use [...]
--- OUTSIDE RECORDS SUMMARY | 2020-03-24 13:55 | XMS REPORT | Encounter Summary ---
Author Author [facility] Organization [facility] Address Unknown Phone Unavailable Care Team Providers Care Salary And Wage Administrator Name Role Phone Claus Couch MD PCP Reason for Visit * Auth/Cert Referred By Contact Referred To Contact Status Reason Specialty Diagnoses / Procedures [facility] Health [address] [place] [address] Home Health Encounter Details Care Team Description Date Type Department Marissa Pitts RN SN - HOME VISIT 10/05/2017 Home Care Visit [facility] [address] [place] [address] Social History Date Tobacco Use [...] Signs Reading Time Taken Comments Vital Sign 100/60 10/05/2017 2:15 PM CLINICAL NURSING ASSISTANT Blood Pressure 96 10/05/2017 2:15 PM CLINICAL NURSING ASSISTANT Pulse - - Temperature 20 10/05/2017 2:15 PM CLINICAL NURSING ASSISTANT Respiratory Rate 97% 10/05/2017 2:15 PM CLINICAL NURSING ASSISTANT Oxygen Saturation - - Inhaled Oxygen [...] - SN - HOME VISIT Discipline - Jail Status Goals Interventions Problem Descriptio Start Date n Active - 1 problem intervention scheduled/documented in this visit [facility] 09/08/2017 Disciplines: care Jail Active - 2 problem interventions scheduled/documented in this visit Home Safety Home 09/08/2017 Disciplines: safety Jail Active - 2 problem interventions scheduled/documented in this visit Knowledge deficit on Infection 09/08/2017 preventing infection with prevention therapies . Disciplines: Jail Active - 1 problem intervention scheduled/documented in this visit Learning/Teaching Needs - Learning/t 09/08/2017 Pressure Ulcer eaching Disciplines: needs re: Jail prevention and care of pressure ulcer Active - 2 problem interventions scheduled/documented in this visit Medications Management 09/08/2017 Disciplines: of home Jail medication s Active - 2 problem interventions scheduled/documented in this visit Nutritional concerns Nutritiona 09/08/2017 Disciplines: l intake Jail concerns Active - 1 problem intervention scheduled/documented in this visit Physical Discomfort Alteration 09/08/2017 Disciplines: in comfort Jail Active - 1 problem intervention scheduled/documented in this visit Pulse Oximetry Skilled 09/08/2017 Disciplines: assessment Jail and monitoring of O2 saturation s. Active - 1 problem intervention scheduled/documented in this visit Skilled Observation and Skilled 09/08/2017 Assessment nursing Disciplines: observatio Jail n and assessment . Variance Visit Notes [...] Caregiver in strategies infection to prevent with infection:Emeigh therapies precautions, avoid crowds and persons with [...] use of pressure relieving devices/strategies: moisture barrier. Filled medication shutdown planner for two weeks with could Thorne observing/assisting. Fadumo states she thought there might have been a medication missing from pt. med box the day after Thanksgiving and reports that she was at her son's for Thanksgiving. States she plans to monitor medication box and to lock up narcotic bottles. Pain med bottle handed to Fadumo. Medication box Problem: Completed Description: Medication SN [...]
--- OUTSIDE RECORDS SUMMARY | 2020-03-24 13:55 | XMS REPORT | Encounter Summary ---
Author Author [facility] Organization [facility] Address Unknown Phone Unavailable Care Team Providers Care Account Development Associate Name Role Phone Claus Couch MD PCP Reason for Visit * Auth/Cert Referred By Contact Referred To Contact Status Reason Specialty Diagnoses / Procedures [facility] [place] [id number] [place] [address] Home Health Encounter Details Care Team Description Date Type Department Marissa Pitts RN SN - HOME VISIT 10/06/2017 Home Care Visit [facility] [address] [place] [address] Social History Date Tobacco Use [...] Vital Sign - - Blood Pressure 96 10/06/2017 1:40 PM HISTOLOGY AIDE Pulse - - Temperature 20 10/06/2017 1:40 PM HISTOLOGY AIDE Respiratory Rate 97% 10/06/2017 1:40 PM HISTOLOGY AIDE Oxygen Saturation - - Inhaled Oxygen Concentration [...] - SN - HOME VISIT Discipline - Mcfp Status Goals Interventions Problem Descriptio Start Date n Active - 1 problem intervention scheduled/documented in this visit Decubitus Care Decubitus 09/08/2017 Disciplines: care Mcfp Active - 1 problem intervention scheduled/documented in this visit Medications Management 09/08/2017 Disciplines: of home Mcfp medication s Active - 1 problem intervention scheduled/documented in this visit Physical Discomfort Alteration 09/08/2017 Disciplines: in comfort Mcfp Active - 1 problem intervention scheduled/documented in this visit Skilled Observation and Skilled 09/08/2017 Assessment nursing Disciplines: observatio Mcfp n and assessment . Variance Visit Notes Intervention Associated Status Problem/Go al Skilled assessment wound Problem: Scheduled Description: Decubitus Assess and document wound Care location, size of visible granulation tissue or epithelialization, necrotic tissue, s/s of infection. Assess and document exudate volume, color, consistency, and odor. Medication box Problem: Scheduled Description: Medication SN [...] Actions and Narratives Called to pt. home by Fadumo (cousin), who states that she checked pill box last night, and all of the oxycontin this nurse placed in med box are not there. Noted pt. condition appears generally unchanged from his baseline. Notified [facility] school child care attendant, Sheela Amaya, of med discrepancy. Nofitied Dr. Couch's office. Notified pharmaci st. Notified law enforcement and officer Ruy responded. Notified THOMAS Monroy per direction of Sheela Nelson, for safety plan to be initiated. documented in this encounter
--- OUTSIDE RECORDS SUMMARY | 2020-03-24 13:55 | XMS REPORT | Encounter Summary ---
Author Author [facility] Organization [facility] Address Unknown Phone Unavailable Care Team Providers Care Camp Advisor Name Role Phone Claus Couch MD PCP Reason for Referral * Eval and Treat (Routine) Referred By Contact Referred To Contact Status Reason Specialty Diagnoses / Procedures Claus Couch MD [address] [place] [address] Jona Doran, SENIOR FINANCIAL CONSULTANT [address] [place] [address] Closed Orthopedic Diagnoses Surgery Elbow pain, left Reason for Visit * Reason Comments Follow Up 6wk Elbow Swelling Encounter Details Care Team Description Date Type Department Claus Couch MD [address] [place] [address] Hemorrhagic cystitis (Primary Dx); Chronic bronchitis, unspecified chronic bronchitis type; Seizure disorder; Essential hypertension; Elbow pain, left; Type 2 diabetes mellitus without complication, without long-term current use of insulin 09/24/2017 Office Visit [facility] [place] [address] [place] [address] Social History Date Tobacco [...] Signs Reading Time Taken Comments Vital Sign 90/58 09/24/2017 9:24 AM HEEL SEAM RUBBER Blood Pressure - - Pulse - - Temperature - - Respiratory Rate - - Oxygen Saturation - - Inhaled Oxygen Concentration 68.9 kg (152 lb) 09/24/2017 9:24 AM HEEL SEAM RUBBER Weight 167.6 cm (5' 6") 09/24/2017 9:24 AM HEEL SEAM RUBBER Height 24.53 09/24/2017 9:24 AM HEEL SEAM RUBBER Body Mass Index documented in this encounter Progress Notes * Claus Couch MD - 09/24/2017 12:21 PM HEEL SEAM RUBBER Oliverio Dalton is a 67 y.o. male Subjective HPI Oliverio Dalton is a 67 y.o. male [...] ROS neg except for the above mentioned Has been doing better since bening in the hospital in [place] urination has been ok no more blood changes discussed with the patient Lab Results Component Value Date/Time SODIUM 134 (L) 09/24/2017 08:56 AM POTASSIUM 4.4 09/24/2017 08:56 AM CHLORIDE 95 (L) 09/24/2017 08:56 AM CO2 24 09/24/2017 08:56 AM CALCIUM 9.4 09/24/2017 08:56 AM BUN 13 09/24/2017 08:56 AM CREATININE 0.56 (L) 09/24/2017 08:56 AM GLUCOSE 228 (H) 09/24/2017 08:56 AM TOTAL PROTEIN 6.9 09/24/2017 08:56 AM ALBUMIN 3.6 09/24/2017 08:56 AM BILIRUBIN TOTAL 0.2 09/24/2017 08:56 AM ALKALINE PHOSPHATASE 131 (H) 09/24/2017 08:56 AM AST 18 09/24/2017 08:56 AM ALT 11 09/24/2017 08:56 AM ANION GAP 15 09/24/2017 08:56 AM BUN/CREAT RATIO 19.8 12/02/2012 09:43 PM CHOLESTEROL 139 09/24/2017 08:56 AM HDL 49 09/24/2017 08:56 AM LDL CALCULATED 58 09/24/2017 08:56 AM LDL CHOLESTEROL, DIRECT 125 12/10/2011 09:05 AM TRIGLYCERIDE 159 (H) 09/24/2017 08:56 AM HEMOGLOBIN A1C 5.0 09/24/2017 08:56 AM TSH 1.69 10/01/2006 05:40 AM Review of Systems Constitutional: Positive for activity change, appetite change and fatigue. Negat humberto for chills and fever. HENT: Negative for congestion, facial swelling, [...] Psychiatric/Behavioral: Negative for agitation and behavioral problems. Objective Physical Exam BP (!) 90/58 | Ht 5' 6" (1.676 m) | Wt 68.9 kg (152 lb) | BMI 24.53 kg/m Physical Exam Constitutional: He appears well-developed and well-nourished. HENT: Head: Normocephalic and atraumatic. Cardiovascular: Normal rate, regular rhythm, normal heart sounds and intact dist al pulses. Pulmonary/Chest: Effort normal and breath sounds normal. Abdominal: Soft. Bowel sounds are normal. Musculoskeletal: Left elbow: He exhibits swelling. Arms: ASSESSMENT: Encounter Diagnoses Name Primary? Hemorrhagic cystitis Yes Chronic bronchitis, unspecified chronic bronchitis type Seizure disorder Essential hypertension Elbow pain, left Type 2 diabetes mellitus without complication, without long-term current use of insulin PLAN: Orders Placed This Encounter XR ELBOW 3+ VW LEFT URINALYSIS WITH REFLEX CULTURE URINALYSIS WITH REFLEX CULTURE MICROALBUMIN/CREATININE RATIO, RANDOM UR Espinoza, Miguel oxyCODONE (OxyCONTIN) 20 mg Controlled Release 12 hour crush resistant table t raNITIdine (ZANTAC) 150 mg tablet follow up in 3 months 30 minutes spent with the patient during this vist 50 % of the time is spent in counseling and review the following changes to treatment plan are made: restart on the oxycodone will have him see miguel for the elbow reviewed medications and side effects in detail test results reviewed with patient and repeat labs ordered prior to next appoint ment reviewed diet, exercise and weight control cardiovascular risk and specific lipid/LDL goals reviewed. SEAM RUBBER documented in this encounter Plan of Treatment Order Schedule Name Type Priority Associated Diag noses Ordered: 09/24/2017 AMB REFERRAL TO Outpatient Routine Elbow pain, le ft ORTHOPEDIC SURGERY Referral documented as of this encounter Visit Diagnoses Diagnosis Hemorrhagic cystitis - Primary Cystitis, unspecified Chronic bronchitis, unspecified chronic bronchitis type Seizure disorder Unspecified epilepsy without mention of intractable epilepsy Essential hypertension Unspecified essential hypertension Elbow pain, left Pain in joint, upper arm Type 2 diabetes mellitus without compli cation, without long-term current use of insulin documented in this encounter Additional Health Concerns Assessment Noted Time A Hypertension Plan of Care has been documented for t pati patient 02/12/2017 12:54 PM CDT documented as of this encounter
--- OUTSIDE RECORDS SUMMARY | 2020-03-24 13:55 | XMS REPORT | Encounter Summary ---
Author Author [facility] Organization [facility] Address Unknown Phone Unavailable Care Team Providers Care Dancing Master Name Role Phone Claus Couch MD PCP Reason for Visit * Reason Comments Elbow Pain Lt Elbow Pain (xray prior to appt) Follow Up F/U Bilat Shoulder Pain * Eval and Treat (Routine) Referred By Contact Referred To Contact Status Reason Specialty Diagnoses / Procedures Claus Couch MD [address] [place] [address] Jona Doran, DRILL DOCTOR [address] [place] [address] Closed Orthopedic Diagnoses Surgery Elbow pain, left Encounter Details Care Team Description Date Type Department Jona Doran DRILL DOCTOR [address] [place] [phone] Olecranon bursitis, left elbow (Primary Dx) 09/29/2017 Office Visit [facility] [place] [facility] [place] [address] [place] [address] Social History Date Tobacco [...] Inhaled Oxygen Concentration 68.9 kg (152 lb) 09/29/2017 10:00 AM AGRICULTURAL EQUIPMENT DESIGN ENGINEER Weight 167.6 cm (5' 6") 09/29/2017 10:00 AM AGRICULTURAL EQUIPMENT DESIGN ENGINEER Height 24.53 09/29/2017 10:00 AM AGRICULTURAL EQUIPMENT DESIGN ENGINEER Body Mass Index documented in this encounter Progress Notes * Jona Doran APRN - 09/29/2017 10:42 AM AGRICULTURAL EQUIPMENT DESIGN ENGINEER Evaluation problem left elbow swelling over the olecranon bursa. Atraumatic. He's had this for some time. He states that he rests his elbow on the armrest i n his easy chair. He denies any injury to the left elbow. No other complaints today. On exam, he has fluctuance olecranon bursa left elbow. No joint effusion. Good motion of the left elbow. No warmth, no erythema, no ecchymosis. X-rays left elbow. No acute osseous abnormality. Assessment left elbow olecranon bursitis. Plan the natural history of the problem was reviewed at length with the patient and options in treatment were discussed. questions and concerns answered. Using sterile technique, 4 cc of old heme aspirated from the left olecranon burs a indicating a hemorrhagic bursitis, left olecranon. I injected 1 cc of Celesto ne or 6 mg sterile technique intra-articular and tolerated well. He is fitted f or olecranon pads (2) or a pair. Will recheck in 3 weeks if he is doing well in 3 weeks. They'll call and cancel. We'll see him sooner when necessary. He un derstands he needs to keep pressure off of the elbow or the problem will persist CULTURAL EQUIPMENT DESIGN ENGINEER documented in this encounter Plan of Treatment Not on filedocumented as of this encounter Visit Diagnoses Diagnosis Olecranon bursitis, left elbow - Primar y documented in this encounter Additional Health Concerns Assessment Noted Time A Hypertension Plan of Care has been documented for t he patient 02/12/2017 12:54 PM CDT documented as of this encounter
--- OUTSIDE RECORDS SUMMARY | 2020-03-24 13:55 | XMS REPORT | Encounter Summary ---
Author Author [facility] Organization [facility] Address Unknown Phone Unavailable Care Team Providers Care Structurer Name Role Phone Claus Couch MD PCP Encounter Details Care Team Description Date Type Department Jona Doran, DIRECTOR OF ANALYTICAL DEVELOPMENT [address] [place] [address] Left elbow pain (Primary Dx) 09/28/2017 Orders Only [facility]op [facility] [address] [address] Social History Date Tobacco Use [...] encounter Results * XR ELBOW 3+ VW LEFT (09/29/2017 9:47 AM PRINTED CIRCUIT BOARDS INSPECTOR) Specimen Narrative Performed At History: Pain. INTERFACE SYSTEM Three-view left elbow: No comparison st udies. Focal soft tissue swelling over the olecranon which may r epresent olecranon bursitis. Small olecranon spur. No evidence of ac jamul fracture, dislocation, or elbow joint effusion. CONCLUSION: 1. Soft tissue swelling over the olecra non with small olecranon spur, suggesting olecranon bursitis. 2. No acute osseous pathology or joint effusion. Procedure Note Interface, [facility] Incoming Radiology Results - 09/29/2017 9:55 AM PRINTED CIRCUIT BOARDS INSPECTOR History: Pain. Three-view left elbow: No comparison studies. Focal soft tissue swelling over the olecranon which may represent olecranon bursitis. Small olecranon spur. No evidence of acute fracture, dislocation, or elbow joint effusion. CONCLUSION: 1. Soft tissue swelling over the olecran on with small olecranon spur, suggesting olecranon bursitis. 2. No acute osseous pathology or joint e ffusion. Performing Organization Address City/State/Zipcode Ph one Number INTERFACE SYSTEM INTERFACE SYSTEM Refer to clinic/hospital department documented in this encounter Visit Diagnoses Diagnosis Left elbow pain - Primary Pain in joint, upper arm documented in this encounter Additional Health Concerns Assessment Noted Time A Hypertension Plan of Care has been documented for jeremias krueger patient 02/12/2017 12:54 PM CDT documented as of this encounter
--- OUTSIDE RECORDS SUMMARY | 2020-03-24 13:55 | XMS REPORT | Encounter Summary ---
Author Author [facility] Organization [facility] Address Unknown Phone Unavailable Care Team Providers Care Biotechnologist Name Role Phone Claus Couch MD PCP Encounter Details Care Team Description Date Type Department Claus Couch MD [address] [place] [address] F[facility], Outpt Lab 09/24/2017 [facility] Outpatient Encounter Laboratory [address] [address] Social History Date Tobacco Use [...] (FLONASE) 50 Administer 2 16 Gram mcg/spray [place], Sprays in Suspension each nostril daily. 07/07/2017 [...] Date/Time Associated Diag nosis CBC WITH DIFFERENTIAL Routine 09/24/2017 Type 2 d iabetes mellitus 8:56 AM MARKET INTELLIGENCE CONSULTANT with diabetic neuropathy, without long-term current use of insulin HEMOGLOBIN A1C Routine 09/24/2017 Type 2 diabetes mellitus 8:56 AM MARKET INTELLIGENCE CONSULTANT with diabetic neuropathy, without long-term current use of insulin LIPID PANEL Routine 09/24/2017 Type 2 diabetes mellitus 8:56 AM MARKET INTELLIGENCE CONSULTANT with diabetic neuropathy, without long-term current use of insulin COMPREHENSIVE METABOLIC Routine 09/24/2017 Type 2 diabetes mellitus PANEL 8:56 AM MARKET INTELLIGENCE CONSULTANT with diabetic neuro wesley, without long-term current use of insulin documented in this encounter Results * HEMOGLOBIN A1C (09/24/2017 8:56 AM MARKET INTELLIGENCE CONSULTANT) HEMOGLOBIN A1C 5.0 4.8 - 5.9 % [facility] [place] EST. AVG 97 mg/dL [facility] GLUCOSE, A1C [facility] - [place] Specimen Blood Performing Organization Address [facility] Ph one Number [facility] CLIA# [id number] [place] [address] - [place] [address] [place] [address] * LIPID PANEL (09/24/2017 8:56 AM MARKET INTELLIGENCE CONSULTANT) CHOLESTEROL 139 <200 mg/dL [facility] [place] TRIGLYCERIDE 159 (H) <150 mg/dL [facility] [place] HDL 49 40 - 59 mg/dL [facility] [place] LDL CALCULATED 58 <100 mg/dL [facility] [place] NON-HDL 90 <130 mg/dL [facility] CHOLESTEROL [facility] [place] Specimen Blood Narrative Performed At TOTAL CHOLESTEROL mg/dL [facility] Desirable <200 SERVICES - [facility] Borderline high 200-239 [place]AY[place] High [...] for Lipid Panels (NCEP/AMA) Performing Organization Address [facility] Ph one Number [facility] CLIA# [id number] [place] [address] - [place] [address] [facility] * COMPREHENSIVE METABOLIC PANEL (09/24/2017 8:56 AM MARKET INTELLIGENCE CONSULTANT) [facility] SODIUM 134 (L) 136 - 145 mmol/L [facility] [place] POTASSIUM 4.4 3.5 - 5.1 mmol/L [facility] [place] CHLORIDE 95 (L) 98 - 107 mmol/L [facility] [place] CO2 24 22 - 29 mmol/L [facility] [place] CALCIUM 9.4 8.8 - 10.2 mg/dL [facility] [place] BUN 13 8 - 23 mg/dL [facility] [place] CREATININE 0.56 (L) 0.67 - 1.17 mg/dL [facility] [place] GLUCOSE 228 (H) 70 - 100 mg/dL [facility] [place] TOTAL PROTEIN 6.9 6.6 - 8.7 g/dL [facility] [place] ALBUMIN 3.6 3.5 - 5.2 g/dL [facility] [place] BILIRUBIN TOTAL 0.2 <=1.2 mg/dL [facility] [place] ALKALINE 131 (H) 40 - 129 U/L [facility] PHOSPHATASE [facility] [place] AST 18 <=41 U/L [facility] [place] ALT 11 10 - 50 U/L [facility] [place] GFR >60 >=60 mL/min/1.73 sq [facility] Comment: meter LABORATORY eGFR has not been validated [facility] for use in the elderly (> [...] result. GFR, >60 >=60 mL/min/1.73 sq [facility] [place] meter [facility] - [place] ANION GAP 15 4 - 20 mmol/L [facility] [place] Specimen Blood Performing Organization Address City/State/[facility] Ph one Number [facility] CLIA# [id number] [place], [place] [address] - [place] [address] [facility] * CBC WITH DIFFERENTIAL (09/24/2017 8:56 AM MARKET INTELLIGENCE CONSULTANT) WBC 10.8 3.6 - 11.1 K/uL [facility] [place] RBC 3.98 (L) 4.49 - 5.52 M/uL [facility] [place] HEMOGLOBIN 10.4 (L) 13.3 - 16.5 g/dL [facility] [place] HEMATOCRIT 32.6 (L) 40.7 - 48.9 % [facility] [place] MCV 81.9 (L) 82.7 - 97.1 fL [facility] [place] MCH 26.1 (L) 27.1 - 32.3 pg [facility] [place] MCHC 31.9 31.3 - 34.9 g/dL [facility] [place] RDW 16.9 (H) 11.5 - 14.7 % [facility] [place] RDW-STDEV 50.0 (H) 37.2 - 47.6 fL [facility] [place] PLATELETS 621 (H) 136 - 352 K/uL [facility] [place] MPV 7.8 (L) 8.6 - 11.8 fL [facility] [place] NEUTROPHILS 78 (H) 44 - 74 % [facility] [place] LYMPHOCYTES 13 (L) 16 - 44 % [facility] [place] MONOCYTES 7 4 - 11 % [facility] [place] EOSINOPHILS 1 0 - 6 % [facility] [place] BASOPHILS 0 0 - 1 % [facility] [place] IMMATURE 1 0 - 1 % [facility] GRANULOCYTES [facility] [place] NEUTROPHIL 8.41 (H) 1.54 - 7.18 K/uL [facility] ABSOLUTE [facility] [place] LYMPHOCYTE 1.42 0.69 - 3.61 K/uL [facility]UTE [facility] [place] MONOCYTE 0.80 0.19 - 0.95 K/uL [facility]UTE [facility] [place] EOSINOPHIL 0.07 0.00 - 0.44 K/uL [facility] [place] BASOPHILS 0.03 0.00 - 0.10 K/uL [facility] [place] IMMATURE 0.05 0.00 - 0.09 K/uL [facility] GRANULOCYTES [facility]AT[facility] ABSOLUTE [facility] - [place] Specimen Blood Performing Organization Address City/State/Zipcode Ph one Number [facility] CLIA# [id number] [place] [address] - [place] [facility] documented in this encounter Visit Diagnoses Diagnosis Type 2 diabetes mellitus with diabetic neuropathy, without long-term current use of insulin documented in this encounter Additional Health Concerns Assessment Noted Time A Hypertension Plan of Care has been documented for t pati patient 02/12/2017 12:54 PM CDT documented as of this encounter
--- OUTSIDE RECORDS SUMMARY | 2020-03-24 13:55 | XMS REPORT | Encounter Summary ---
Author Author [facility] Organization [facility] Address Unknown Phone Unavailable Care Team Providers Care Zoning Assistant Name Role Phone Claus Couch MD PCP Encounter Details Care Team Description Date Type Department Jona Doran, BLASTING CLAY MINER [address] [place] [address] 09/29/2017 [facility] Imaging Se rvices Encounter [place] [address] [place] [address] Social History Date Tobacco Use [...] Tablet 5 tablet mouth daily at bedtime. 09/29/2017 01/06/2018 phenytoin sodium Take 2 120 Capsule 2 (DILANTIN) 100 mg Capsules (200 extended release capsule mg) by mouth 2 times daily. 09/24/2017 10/20/2017 oxyCODONE (OxyCONTIN) 20 Take 1 [...] (FLONASE) 50 Administer 2 16 Gram mcg/spray [place], Sprays in Suspension each nostril daily. 07/07/2017 [...] Associated Diag nosis XR ELBOW 3+ VW LEFT Routine 09/29/2017 Left elbow pain 9:47 AM CYBER SYSTEMS ENGINEER documented in this encounter Results * XR ELBOW 3+ VW LEFT (09/29/2017 9:47 AM CYBER SYSTEMS ENGINEER) Specimen Narrative Performed At History: Pain. INTERFACE SYSTEM Three-view left elbow: No comparison st udies. Focal soft tissue swelling over the olecranon which may r epresent olecranon bursitis. Small olecranon spur. No evidence of ac diamond fracture, dislocation, or elbow joint effusion. CONCLUSION: 1. Soft tissue swelling over the olecra non with small olecranon spur, suggesting olecranon bursitis. 2. No acute osseous pathology or joint effusion. Procedure Note Interface, [facility] [place] [facility] Incoming Radiology Results - 09/29/2017 9:55 AM CYBER SYSTEMS ENGINEER History: Pain. Three-view left elbow: No comparison [...] encounter Visit Diagnoses Diagnosis Left elbow pain Pain in joint, upper arm documented in this encounter Additional Health Concerns Assessment Noted Time A Hypertension Plan of Care has been documented for t pati patient 02/12/2017 12:54 PM CDT documented as of this encounter
--- OUTSIDE RECORDS SUMMARY | 2020-03-24 13:56 | XMS REPORT | Encounter Summary ---
Author Author [facility] Organization [facility] Address Unknown Phone Unavailable Care Team Providers Care Wheel Grinder Name Role Phone Claus Couch MD PCP Reason for Visit * Auth/Cert Referred By Contact Referred To Contact Status Reason Specialty Diagnoses / Procedures [facility] [place] [place] [address] Home Health Encounter Details Care Team Description Date Type Department Marissa Pitts RN SN - OASIS TRANSFER W/DC 09/06/2017 [facility] [address] [place] [address] Social History Date Tobacco Use [...] Plan Visit Type - SN - OASIS TRANS W/DC Discipline - Longterm Status Goals Interventions Problem Descriptio Start Date n Resolved on 09/06/2017 - 1 problem intervention scheduled/documented in this visit Physical Discomfort Alteration 07/09/2017 Disciplines: in comfort Longterm Resolved on 09/06/2017 - 1 problem intervention scheduled/documented in this visit Skilled Observation and Skilled 07/09/2017 Assessment nursing Disciplines: observatio Longterm n and assessment . Variance Visit Notes Intervention Associated Status Problem/Go al Skilled assessment pain Problem: Scheduled Description: Physical [...] neurologic, gastrointestinal, endocrine, musculoskeletal, renal/urinary, integumentary and psychosocial/psychiatric/ mental and report any abnormalities or concerns to the physician. documented in this encounter
--- OUTSIDE RECORDS SUMMARY | 2020-03-24 13:56 | XMS REPORT | Encounter Summary ---
Author Author [facility] Organization [facility] Address Unknown Phone Unavailable Care Team Providers Care Instructional Manager Name Role Phone Claus Couch MD PCP Reason for Visit * Auth/Cert Referred By Contact Referred To Contact Status Reason Specialty Diagnoses / Procedures [facility] [address] [place] [address] Home Health Encounter Details Care Team Description Date Type Department Marissa Pitts RN SN - HOME VISIT 08/30/2017 Home Care Visit [facility] [address] [place] [address] Social History Date Tobacco Use Types Packs/Day Years Used Quit: 03/08/1995 Current Every Day Smoker Cigarettes 1 40 Smokeless Tobacco: Never Used Comments: Restarted [...] Signs Reading Time Taken Comments Vital Sign 104/60 08/30/2017 9:15 AM CDT Blood Pressure 96 08/30/2017 9:15 AM CDT Pulse - - Temperature 20 08/30/2017 9:15 AM CDT Respiratory Rate 95% 08/30/2017 9:15 AM CDT Oxygen Saturation - - Inhaled [...] 1 problem intervention scheduled/documented in this visit Patient Goals Record 07/09/2017 Disciplines: patient Prison identified goals. Evaluate progress toward acheivemen t of patient goals, including the measurable outcomes identified by the RADIOLOGICAL [employer]ENSE OFFICER agency. Active - 4 problem interventions scheduled/documented in this visit Wound Management Presence 07/16/2017 Disciplines: of Prison Stage[I], [II], [III], [IV] pressure ulcer Active - 2 problem interventions scheduled/documented in this visit Home Safety Home 07/09/2017 Disciplines: safety Prison Active - 2 problem interventions scheduled/documented in this visit Knowledge deficit on Infection 07/09/2017 preventing infection with prevention therapies . Disciplines: Prison Active - 2 problem interventions scheduled/documented in this visit Nutritional concerns Nutritiona 07/09/2017 Disciplines: l intake Prison concerns Active - 1 problem intervention scheduled/documented in this visit Physical Discomfort Alteration 07/09/2017 Disciplines: in comfort Prison Active - 1 problem intervention scheduled/documented in this visit Pulse Oximetry Skilled 07/09/2017 Disciplines: assessment Prison and monitoring of O2 saturation s. Active - 1 problem intervention scheduled/documented in this visit Skilled Observation and Skilled 07/09/2017 Assessment nursing Disciplines: observatio Prison n and assessment . Variance Visit Notes Intervention Associated Status Problem/Go al PATIENT GOALS Problem: Completed Description: Patient Evaluate patient progress Goals towards acheivement of patient identified goal(s). Pt. refuses air mattress. Sitting in wheelchair chain smoking. Further teaching provided. Instruct positioning Problem: Completed Description: Wound Instruct Patient and Management Caregiver in proper positioning strategies: Side lying and change every two hours. Instruct wound care Problem: Completed Description: Wound Instruct in wound care Management protocol, aseptic technique, proper disposal of soiled dressings. Instruct of stages and characteristics of wound healing, signs and symptoms of wound infection. Skilled assessment wound Problem: Completed Description: Wound Assess and document wound Management location, size of visible granulation tissue or epithelialization, necrotic tissue, s/s of infection. Assess and document exudate volume, color, consistency, and odor. Evaluate the effectiveness of the current treatment regimen and notify physician for the need for changes in the plan of care. Wound care Problem: Completed Description: HH Wound Wound care to buttocks Management wound to be performed by SN or caregiver. Wound care to consist of remove old dressing, cleanse with, aseptic cleanser on 4 x 4 gauze and pat dry. Apply Mepilex AG cut to fit. Cover with Mepilex border. May apply Tegaderm if needed to secure dressing. Instruct home safety Problem: Completed Description: Home [...] Caregiver in strategies infection to prevent with infection:frequent/proper therapies hand-washing techniques, Standard precautions, avoid crowds and persons with known infections, staying current with immunizations, s/s of infection and encourage adequate diet and fluid intake. [...] practices, and current knowledge of intake requirements. Progress: Eating high fat, high sodium diet. Further teaching provided regarding balanced diet and nutrition for wound healing. Teach nutrition Problem: Completed Description: Nutritiona Assist with meal planning l concerns and instruct on nutritional requirements. Instruct / reinforce ordered diet: diabetic and heart healthy. Skilled assessment pain Problem: Completed Description: [...]
--- OUTSIDE RECORDS SUMMARY | 2020-03-24 13:56 | XMS REPORT | Encounter Summary ---
Author [facility] Address Unknown Phone Unavailable Care Team Providers Care B2B Outside Sales Representative Name Role Phone Claus Couch MD PCP Reason for Visit * Auth/Cert Referred By Contact Referred To Contact Status Reason Specialty Diagnoses / Procedures [facility] [address] [place] [address] Home Health Encounter Details Care Team Description Date Type Department Marissa Pitts RN SN - [facility] START OF CARE 09/08/2017 [facility] [address] [place] [address] Social History Date Tobacco Use [...] Vital Sign - - Blood Pressure 90 09/08/2017 12:15 PM CDT Pulse - - Temperature 20 09/08/2017 12:15 PM CDT Respiratory Rate 96% 09/08/2017 12:15 PM CDT Oxygen Saturation - - Inhaled [...] - [place] START OF CARE Discipline - Shelter Status Goals Interventions Problem Descriptio Start Date n Active - 2 problem interventions scheduled/documented in this visit Decubitus Care 09/08/2017 Disciplines: Shelter Active - 1 problem intervention scheduled/documented in this visit Home Safety 09/08/2017 Disciplines: Shelter Active - 1 problem intervention scheduled/documented in this visit Knowledge deficit on 09/08/2017 preventing infection with therapies Disciplines: Shelter Active - 2 problem interventions scheduled/documented in this visit Medications 09/08/2017 Disciplines: Shelter Active - 1 problem intervention scheduled/documented in this visit Physical Discomfort 09/08/2017 Disciplines: Shelter Active - 1 problem intervention scheduled/documented in this visit Pulse Oximetry 09/08/2017 Disciplines: Shelter Active - 1 problem intervention scheduled/documented in this visit Skilled Observation and 09/08/2017 Assessment Disciplines: Shelter Variance Visit Notes Intervention Associated Status Problem/Go al Decubitus care Problem: Completed Decubitus Care Skilled assessment wound Problem: Completed Decubitus Care Skilled assessment risk Problem: Completed for injury Home Safety Skilled assessment risk Problem: Completed for infection Knowledge deficit on preventing infection with therapies Medication box Problem: Completed Medication s .Reconciled home medications with hospital discharge medication orders. Pt. is taking medication as prescribed with no discrepancies or medication related problems indicated. Skilled assessment Problem: Completed medications Medication s Skilled assessment pain Problem: Completed Physical Discomfort Sn to obtain pulse ox Problem: Completed reading Pulse Oximetry Skilled observation and Problem: Completed assessment general Skilled assessment Observatio n and Assessment documented in this encounter
--- OUTSIDE RECORDS SUMMARY | 2020-03-24 13:56 | XMS REPORT | Encounter Summary ---
Author Author [facility] Organization [facility] Address Unknown Phone Unavailable Care Team Providers Care Cognos Developer Name Role Phone Claus Couch MD PCP Encounter Details Care Team Description Date Type Department Claus Couch MD [address] [place] [address] 09/09/2017 Abstract [facility] Primar y Care [place] [address] [place] [address] Social History Date Tobacco Use [...]
--- OUTSIDE RECORDS SUMMARY | 2020-03-24 13:56 | XMS REPORT | Encounter Summary ---
Author Author [facility] Organization [facility] Address Unknown Phone Unavailable Care Team Providers Care Cosmetician Apprentice Name Role Phone Claus Couch MD PCP Reason for Visit * Reason Comments syncope Patient to wound care this morning for sacral wounds, passed out, reported blood pressure 60s systolic, diaphoreti c, by wound care nurse. Patient recently diagnosed with UTI, taking ant ibiotics. Caregiver reports patient has been passing "alot" of blood in his urine. Encounter Details Care Team Description Date Type Department Chronic blood loss anemia (P rimary Dx); Hypovolemic shock; Gross hematuria 2017 Emergency [facility] [address] [id number] Social History Date Tobacco [...] Signs Reading Time Taken Comments Vital Sign 109/55 2017 2:03 PM CDT Blood Pressure 85 2017 11:45 AM CDT Pulse 36.3 C (97.4 F) 2017 2:03 PM CDT Temperature 12 2017 2:03 PM CDT Respiratory Rate 100% 2017 2:03 PM CDT Oxygen Saturation - - Inhaled Oxygen Concentration 66.7 kg (147 lb) 2017 11:16 AM CDT Weight - - Height 23.73 09/01/2017 2:37 PM CDT Body Mass Index documented in [...] Tablet 5 tablet mouth daily at bedtime. 09/01/2017 09/06/2017 ciprofloxacin HCl (CIPRO) Take 1 Tablet 10 Tablet 0 250 mg tablet (250 mg) by mouth 2 times daily for 5 days. 08/23/2017 09/24/2017 oxyCODONE (OxyCONTIN) 20 [The details 60 Tablet 0 mg Controlled Release 12 of the hour crush resistant medication tablet are not available because there are pending changes by a home health clinician.] 08/13/2017 09/09/2017 oxyCODONE-acetaminophen TAKE 2 30 Tablet 0 (PERCOCET) 10-325 mg TABLETS EVERY Tablet 4 HOURS NEEDED FOR BREAKTHRU PAIN. 08/04/2017 09/24/2017 raNITIdine (ZANTAC) 150 [The details 30 Tablet 5 mg tablet of the medication are not available because there are pending changes by a home health clinician.] 07/21/2017 01/19/2018 traZODone (DESYREL) 50 mg Take [...] (FLONASE) 50 Administer 2 16 Gram mcg/spray Stewart, Sprays in Suspension each nostril daily. 07/07/2017 [...] Procedure Notes * David Ferrer MD - 09/06/2017 10:14 AM CDT Associated Order(s): EKG 12-LEAD [address] [place] [address] Patient Name: OLIVERIO TINSLEY CSN: [id number] : 1950 Provider: David Bernard M.D. Admitted: 2017 ELECTROCARDIOGRAM DATE OF SERVICE: 2017 2017 at 1146. The rhythm is regular, sinus in origin with a rate of 88 geneva ts per minute. NM interval is borderline prolonged. Limb leads show low voltage. T waves are flattened and the QT interval is prolonged for the rate. Compared w ith previous tracing dated April 16 2017, R waves are better seen in septal ches t leads currently. T waves are more prominent previously and QT interval is not prolonged on the previous tracing. DIAGNOSIS: 1) Sinus rhythm, rate 88 beats per minute. 2) Borderline prolonged NM interval . 3) Nonspecific T wave flattening. 4) Prolonged QT interval for rate, possibly due to drug effect and/or electroly te-metabolic abnormality. Dictated by: David Bernard M.D./MEDQ D: [id number] V: [id number] cc: Claus Couch M.D. documented in this encounter ED Notes * Carmella Odell RN - 2017 2:09 PM CDT Flight crew here and present at bedside. * Carmella Odell RN - 2017 2:03 PM CDT Blood transfusion stopped at this time, vital signs are stable. * Haris Rosario RN - 2017 1:36 PM CDT Blood transfusion ordered wide open to gravity per Alisha DE SANTIAGO. VS obtained, blood verified w Carmella POWERS at the bedside and started per publicity writer and Carmella POWERS. W arm blankets provided. Blood transfusion is emergent. * Carmella Odell RN - 2017 1:35 PM CDT Emergent blood transfusion started at this time, blood verified by PRIYA Carballo and this publicity writer. Blood infusing wide open via gravity per Alisha Vaughn APRN. [facility] ETA 26 minutes, family at bedside updated. * Carmella Odell RN - 2017 1:18 PM CDT [email or web address] [facility] called for transport, ETA 40 minutes, will call when helicopter h as lifted. * Carmella Odell RN - 2017 11:30 AM CDT Blood pressure taken manually, 60/30. Alisha Vaughn APRN notified, normal saline i nfusion started using pressure bag. * Carmella Odell RN - 2017 11:16 AM CDT Patient arrived to ER 1, brought in by wound care nurse. Stated patient became p oorly responsive in wound care clinic, systolic blood pressure 60 per wound care nurse. Patient not responding to verbal or tactile stimuli. * Macy Vaughn NP - 2017 11:09 AM CDT HISTORY OF PRESENT ILLNESS Oliverio Tinsley, a 67 y.o. male presents to the ED with a Chief Complaint of sy ncope Subjective Patient presents with: syncope: Patient to wound care this morning for sacral wounds, passed out, repor roma blood pressure 60s systolic, diaphoretic, by wound care nurse. Patient marlinen melany diagnosed with UTI, taking antibiotics since 09/01. Was anemic at the time o f that visit, treated with IVF. Friend states that he had been having hematuria for a day or two before that and has "peeing blood" since. Review of the urine c ulture final result show no growth. The friend is not aware of fever or chills, no vomiting or complaint of abdominal pain. Pt has plavix on his med list. Famil y unsure if he is taking the medication REVIEW OF SYSTEMS Review of Systems Unable to perform ROS: Acuity of condition PAST MEDICAL HISTORY REVIEWED MEDICAL: Patient has [...] has a past surgical history that includes surgical other (05/2001); rakel ract removal (2000); surgical other (2001); surgical other (1999); surgical othe r (11/2001); turp (08/2003); surgical other (04/12); surgical other (09/12); surgi donovan other (08/14); psa (09/13); surgical other (07/11); colonoscopy flx dx w/katharine j spec when pfrmd (02/01/2009); hernia repair (1988); lap cholecystectomy ( 7); coronary artery bypass graft; heart catheterization (04/10); lap,appendectomy (05/28/2012); repair umbilical colleen,5+y/o,reduc (05/28/2012); colonoscopy flx dx w/collj spec when pfrmd (12/28/2013); hernia inguinal repair (Right, 03/08/2015); a nd hip surgery (Left, 03/07/2017). FAMILY: Patient's family history includes Asthma [...] HOME MEDICATIONS Discharge Medication List as of 2017 1:37 PM CONTINUE these medications which have NOT CHANGED Details ciprofloxacin HCl (CIPRO) 250 mg tablet Take 1 Tablet (250 mg) by mouth 2 times daily for 5 days., Disp-10 Tablet, R-0 oxyCODONE (OxyCONTIN) 20 mg Controlled Release 12 hour crush resistant tablet Ta ke 1 Tablet (20 mg) by mouth every 12 hours., Disp-60 Tablet, R-0 oxyCODONE-acetaminophen (PERCOCET) 10-325 mg Tablet TAKE 2 TABLETS EVERY 4 HOURS NEEDED FOR BREAKTHRU PAIN., Disp-30 Tablet, R-0 sennosides-docusate sodium (SENOKOT-S) 8.6-50 mg tablet Take 1 Tablet by mouth d aily., Disp-30 Tablet, R-5 raNITIdine (ZANTAC) 150 mg tablet Take 1 Tablet (150 mg) by mouth daily at bedti me., Disp-30 Tablet, R-5 naproxen sodium (ALEVE) 220 mg Tablet Take 440 mg by mouth daily. ferrous sulfate 325 mg (65 mg iron) tablet Take 325 mg by mouth daily. traZODone (DESYREL) 50 mg tablet Take 1 Tab by mouth daily at bedtime.., Disp-30 Tablet, R-5 temazepam (RESTORIL) 7.5 mg capsule Take 1 Capsule (7.5 mg) by mouth nightly as needed for Insomnia., Disp-30 Capsule, R-2 LORazepam (ATIVAN) 1 mg tablet TAKE ONE TABLET BY MOUTH 2 TIMES A DAY.., Disp-60 Tablet, R-2 gabapentin (NEURONTIN) 300 mg capsule Take [...] Disp-120 Tablet, R-3 fluticasone (FLONASE) 50 mcg/spray Stewart, Suspension Administer 2 Sprays in each nostril daily., Disp-16 Gram, R-PRN pioglitazone (ACTOS) 30 mg tablet Take 1 Tab by mouth daily., Disp-90 Tablet, R- 1 PROAIR HFA 90 mcg/actuation inhaler Take 2 Puffs by inhalation every 4 hours as needed for Shortness of Br eath., Disp-8.5 Gram, R-11 ramipril (ALTACE) 10 mg capsule Take 1 Cap by mouth daily., Disp-90 Capsule, R-3 tamsulosin (FLOMAX) 0.4 mg capsule TAKE ONE CAPSULE BY MOUTH EVERY DAY 30 MINUTE S AFTER SUPPER, Disp-30 Capsule, R-11 fenofibrate nanocrystallized (TRICOR) 145 mg tablet Take 1 Tab by mouth daily wi supper., Disp-30 Tablet, R-11 simvastatin (ZOCOR) 40 mg tablet TAKE ONE TABLET (40MG) BY MOUTH EVERY DAY IN E EVENING, Disp-90 Tablet, R-1 isosorbide mononitrate (IMDUR) 60 mg Extended Release 24 hour tablet TAKE ONE TA BLET BY MOUTH 2 TIMES A DAY, Disp-60 Tablet, R-5 loratadine (CLARITIN) 10 mg tablet Take 1 Tab by mouth daily., Disp-30 Tablet, R -5 phenytoin sodium (DILANTIN EXTENDED) 100 mg extended release capsule Take 200 mg by mouth 2 times daily . clopidogrel (PLAVIX) 75 mg Tablet Take 1 Tab by mouth daily., Disp-30 Tablet, R- 5 ezetimibe (ZETIA) 10 mg tablet Take 1 Tab by mouth daily at bedtime., Disp-30 Ta blet, R-5 OLANZapine (ZyPREXA) 2.5 mg tablet Take 1 Tab by mouth daily at bedtime., Disp-3 0 Tablet, R-5 fluticasone (FLOVENT HFA) 110 mcg/actuation HFA Aerosol [...] am & pm prn, Disp-1 Package, R-0 ASPIRIN EC 81 mg Oral TbEC Take 81 mg by mouth daily. MULTIVITAMIN PO Take 1 Tab by mouth daily with lunch. BETIMOL 0.5 % OP Drop Administer 1 Drop in both eyes 2 times daily. STOP taking these medications fluconazole (DIFLUCAN) 200 mg tablet Comments: Reason for Stopping: Objective PHYSICAL EXAM INITIAL VS BP: (!) 150/97 (09/03/171115), Heart Rate: 96 bpm (09/03/171115), Resp: 22 (1115), Temp: 97.7 F (36.5 C) (09/03/171115), Temp src: Axillary (1115), SpO2: 99 % (09/03/171115), Height: (not recorded), Weight: 66.7 kg (147 lb) (09/03/171115), BMI (Calculated): (not recorded) No LMP for male eugene ent. Physical Exam Constitutional: He appears lethargic. Ill appearing male, skin pale and cool, arouses to tactile stimulation, does not speak HENT: Head: Atraumatic. Mouth/Throat: Mucous membranes are dry. Eyes: Conjunctivae are normal. Neck: No JVD present. Cardiovascular: Regular rhythm and normal heart sounds. Tachycardia present. Pulmonary/Chest: Effort normal. He has no wheezes. He has no rales. Abdominal: Soft. Bowel sounds are normal. There is no tenderness. Neurological: He appears lethargic. GCS eye subscore is 2. GCS verbal subscore i s 4. GCS motor subscore is 6. Skin: Cool, pale extremities DIAGNOSTICS LAB: CBC WITH DIFFERENTIAL - Abnormal Result Value WBC 13.9 (*) RBC 2.35 (*) HEMOGLOBIN 5.8 (*) HEMATOCRIT 18.7 (*) MCV 79.6 (*) MCH 24.7 (*) MCHC 31.0 (*) RDW 16.1 (*) PLATELETS 764 (*) MPV 8.4 (*) NEUTROPHIL ABSOLUTE 9.20 (*) MONOCYTE ABSOLUTE 1.06 (*) RDW-STDEV 46.4 NEUTROPHILS 66 LYMPHOCYTES 25 MONOCYTES 8 EOSINOPHILS 1 BASOPHILS 0 IMMATURE GRANULOCYTES 1 LYMPHOCYTE ABSOLUTE 3.41 EOSINOPHIL ABSOLUTE 0.11 BASOPHILS ABSOLUTE 0.02 IMMATURE GRANULOCYTES ABSOLUTE 0.07 PROTIME-INR - Abnormal PROTIME 12.7 (*) INR 1.2 (*) PTT - Abnormal PTT 30.6 (*) COMPREHENSIVE METABOLIC PANEL - Abnormal SODIUM 129 (*) CHLORIDE 91 (*) CO2 21 (*) CALCIUM 8.4 (*) GLUCOSE 265 (*) TOTAL PROTEIN 5.8 (*) ALBUMIN 3.0 (*) POTASSIUM 4.5 BUN 19 CREATININE 0.70 BILIRUBIN TOTAL <0.1 ALKALINE PHOSPHATASE 119 AST 19 ALT 18 GFR >60 GFR, >60 ANION GAP 17 TROPONIN - Abnormal TROPONIN T 0.03 (*) URINALYSIS WITH REFLEX CULTURE - Abnormal COLOR UA Bloody (*) CLARITY UA Bloody (*) LEUKOCYTE ESTERASE UA 3+ (*) NITRITE UA Positive (*) PROTEIN UA 3+ (*) GLUCOSE UA Trace (*) KETONES UA 1+ (*) BLOOD UA 3+ (*) WBC UA 51-100 (*) RBC UA >100 (*) SPECIFIC GRAVITY UA 1.020 PH UA 7.0 UROBILINOGEN UA <2.0 BILIRUBIN UA Negative EPITHELIAL CELLS, URINE 0-5 LACTIC ACID - Normal LACTIC ACID 1.3 TYPE AND SCREEN ABO GROUP A RH (D) TYPE Positive ANTIBODY SCREEN Negative VERIFICATION BLOOD GROUP ABO GROUP A RH (D) TYPE Positive RADIOLOGY: XR CHEST PA OR AP Radiologist Impression EKG: PROCEDURES Procedures MEDICAL DECISION MAKING AND PLAN OF CARE ED Course Value Comment By Time HEMOGLOBIN: (!!) 5.8 (Reviewed) Macy Vaughn NP 09/03 1157 HEMATOCRIT: (!!) 18.7 Will type and cross and give blood. BP now 90s with IVF an d levophed Macy Vaughn NP 09/03 1158 Pt with michael blood from [facility]. Discussed with Dr Galvan, will need to be trans ferred where urology is available. He does not feel pt can be cared for at [facility] due to high risk. Family request [facility] in [place]. Call placed to [facility] call Macy Vaugnh NP 09/[address] Singh, hospitalist from [facility]. Accepting pt for transfer to ICU bed. Macy Vaughn NP 09/03 1306 [facility] Pt with continued output of michael blood from [facility] catheter. Will transfer by he licoptor. BP remained in the 90s systolic during stay in ED. Did become more res ponsive after unit of blood given. Medications Administered During the ED Stay from 2017 1109 to 09/09/2017 0 507 Date/Time Order Dose Route Action 2017 1200 sodium chloride 0.9% bolus solution 1,000 mL 0 mL IV Stopped 2017 1130 sodium chloride 0.9% bolus solution 1,000 mL 1,000 mL IV New B ag 2017 1245 sodium chloride 0.9% bolus solution 2,001 mL 0 mL/kg IV Stoppe d 2017 1215 sodium chloride 0.9% bolus solution 2,001 mL 2,001 mL IV New B ag 2017 1418 norepinephrine (LEVOPHED) 4 mg in dextrose 5% 250 mL infusion 0 mcg/kg/min IV Stopped 2017 1145 norepinephrine (LEVOPHED) 4 mg in dextrose 5% 250 mL infusion 0.02 mcg/kg/min IV New Bag 2017 1200 NOREPINEPHRINE BITARTRATE 1 MG/ML INTRAVENOUS SOLUTION (CABINE T OVERRIDE) Canceled Entry 2017 1200 DEXTROSE 5 % IN WATER (D5W) INTRAVENOUS SOLUTION (CABINET OVER RIDE) Canceled Entry 2017 1330 SODIUM CHLORIDE 0.9 % INTRAVENOUS SOLUTION (CABINET OVERRIDE) Canceled Entry 2017 1245 sodium chloride 0.9% infusion IV New Bag 2017 1130 sodium chloride 0.9 % flush injection 3 mL 3 mL IV Push 2017 1120 sodium chloride 0.9 % flush injection 3 mL 3 mL IV Push Discharge Medication List as of 2017 1:37 PM CONTINUE these medications which have NOT CHANGED Details ciprofloxacin HCl (CIPRO) 250 mg tablet Take 1 Tablet (250 mg) by mouth 2 times daily for 5 days., Disp-10 Tablet, R-0 oxyCODONE (OxyCONTIN) 20 mg Controlled Release 12 hour crush resistant tablet Ta ke 1 Tablet (20 mg) by mouth every 12 hours., Disp-60 Tablet, R-0 oxyCODONE-acetaminophen (PERCOCET) 10-325 mg Tablet TAKE 2 TABLETS EVERY 4 HOURS NEEDED FOR BREAKTHRU PAIN., Disp-30 Tablet, R-0 sennosides-docusate sodium (SENOKOT-S) 8.6-50 mg tablet Take 1 Tablet by mouth d aily., Disp-30 Tablet, R-5 raNITIdine (ZANTAC) 150 mg tablet Take 1 Tablet (150 mg) by mouth daily at bedti me., Disp-30 Tablet, R-5 naproxen sodium (ALEVE) 220 mg Tablet Take 440 mg by mouth daily. ferrous sulfate 325 mg (65 mg iron) tablet Take 325 mg by mouth daily. traZODone (DESYREL) 50 mg tablet Take 1 Tab by mouth daily at bedtime.., Disp-30 Tablet, R-5 temazepam (RESTORIL) 7.5 mg capsule Take 1 Capsule (7.5 mg) by mouth nightly as needed for Insomnia., Disp-30 Capsule, R-2 LORazepam (ATIVAN) 1 mg tablet TAKE ONE TABLET BY MOUTH 2 TIMES A DAY.., Disp-60 Tablet, R-2 gabapentin (NEURONTIN) 300 mg capsule Take [...] Disp-120 Tablet, R-3 fluticasone (FLONASE) 50 mcg/spray Stewart, Suspension Administer 2 Sprays in each nostril daily., Disp-16 Gram, R-PRN pioglitazone (ACTOS) 30 mg tablet Take 1 Tab by mouth daily., Disp-90 Tablet, R- 1 PROAIR HFA 90 mcg/actuation inhaler Take 2 Puffs by inhalation every 4 hours as needed for Shortness of Br eath., Disp-8.5 Gram, R-11 ramipril (ALTACE) 10 mg capsule Take 1 Cap by mouth daily., Disp-90 Capsule, R-3 tamsulosin (FLOMAX) 0.4 mg capsule TAKE ONE CAPSULE BY MOUTH EVERY DAY 30 MINUTE S AFTER SUPPER, Disp-30 Capsule, R-11 fenofibrate nanocrystallized (TRICOR) 145 mg tablet Take 1 Tab by mouth daily wi supper., Disp-30 Tablet, R-11 simvastatin (ZOCOR) 40 mg tablet TAKE ONE TABLET (40MG) BY MOUTH EVERY DAY IN E EVENING, Disp-90 Tablet, R-1 isosorbide mononitrate (IMDUR) 60 mg Extended Release 24 hour tablet TAKE ONE TA BLET BY MOUTH 2 TIMES A DAY, Disp-60 Tablet, R-5 loratadine (CLARITIN) 10 mg tablet Take 1 Tab by mouth daily., Disp-30 Tablet, R -5 phenytoin sodium (DILANTIN EXTENDED) 100 mg extended release capsule Take 200 mg by mouth 2 times daily . clopidogrel (PLAVIX) 75 mg Tablet Take 1 Tab by mouth daily., Disp-30 Tablet, R- 5 ezetimibe (ZETIA) 10 mg tablet Take 1 Tab by mouth daily at bedtime., Disp-30 Ta blet, R-5 OLANZapine (ZyPREXA) 2.5 mg tablet Take 1 Tab by mouth daily at bedtime., Disp-3 0 Tablet, R-5 fluticasone (FLOVENT HFA) 110 mcg/actuation HFA Aerosol [...] am & pm prn, Disp-1 Package, R-0 ASPIRIN EC 81 mg Oral TbEC Take 81 mg by mouth daily. MULTIVITAMIN PO Take 1 Tab by mouth daily with lunch. BETIMOL 0.5 % OP Drop Administer 1 Drop in both eyes 2 times daily. STOP taking these medications fluconazole (DIFLUCAN) 200 mg tablet Comments: Reason for Stopping: LAST VS BP: 109/55 (09/03/17 1403), Heart Rate: 86 bpm (09/03/17 1403), Resp: 12 ( 1403), Temp: 97.4 F (36.3 C) (09/03/17 1403), Temp src: Axillary ( 7 1403), SpO2: 100 % (09/03/17 1403) CLINICAL IMPRESSION Final diagnoses: [R57.1] Hypovolemic shock [R31.0] Gross hematuria DISPOSITION, EDUCATION AND MEDICATION RECONCILIATION Medications reconciled. See after visit summary for patient education on discha rged patients. ED Disposition ED Disposition Condition User Date/Time Comment Transfer Serious Macy Vaughn NP WedSep 03, 2017 12:50 PM ATTESTATION STATEMENTS documented in this encounter Plan of Treatment Not on filedocumented as of this encounter Procedures Comments Procedure Name Priority Date/Time Associated Diag nosis TELEMETRY REPORT 09/06/2017 3:07 PM CDT EKG 12-LEAD Stat 09/06/2017 2:45 PM CDT XR CHEST PA OR AP 1 VW Stat 2017 12:33 PM CDT URINALYSIS WITH REFLEX Stat 2017 CULTURE 12:09 PM CDT URINE CULTURE Routine 2017 12:09 PM CDT PREPARE RED BLOOD CELLS Stat 2017 11:55 AM CDT TYPE AND SCREEN Stat 2017 11:54 AM CDT VERIFICATION BLOOD GROUP Stat 2017 Chron ic blood loss anemia 11:43 AM CDT LACTIC ACID Stat 2017 11:43 AM CDT CBC WITH DIFFERENTIAL Stat 2017 11:43 AM CDT BLOOD CULTURE Stat 2017 11:43 AM CDT PTT Stat 2017 11:43 AM CDT PROTIME-INR Stat 2017 11:43 AM CDT TROPONIN Stat 2017 11:43 AM CDT COMPREHENSIVE METABOLIC Stat 2017 PANEL 11:43 AM CDT POC GLUCOSE Stat 2017 11:14 AM CDT documented in this encounter Results * TELEMETRY REPORT (09/06/2017 3:07 PM CDT) Narrative Performed At This result has an attachment that is n ot available. * EKG 12-LEAD (09/06/2017 2:45 PM CDT) Narrative Performed At This result has an attachment that is n ot available. Procedure Note David Bernard MD - 09/06/2017 10:14 AM CDT [address] [place] [address] Patient Name: OLIVERIO TINSLEY CSN: [id number] : 1950 Provider: David Bernard M.D. Admitted: 2017 ELECTROCARDIOGRAM DATE OF SERVICE: 2017 2017 at 1146. The rhythm is regula r, sinus in origin with a rate of 88 beats per minute. NM interval is borderline prolonged. Limb leads show low voltage. T waves are flattened and the QT interval is prolonged for the rate. Compared with previous tracing dated April 16 2017, R waves are better seen in septal chest leads currently. T waves are more prominent previously and QT interval is not prolonged on the previous tracing. DIAGNOSIS: 1) Sinus rhythm, rate 88 beats per minute. 2) Borderline prolonged NM interval . 3) Nonspecific T wave flattening. 4) Prolonged QT interval for rate, possibly due to drug effect and/or electrolyte-metabolic abnormality. Dictated by: David Bernard M.D./[place] D: [id number] V: [id number] cc: Claus Couch M.D. * XR CHEST PA OR AP (2017 12:33 PM CDT) Specimen Narrative Performed At History: Altered mental status. INTERFACE SYSTEM AP portable chest: Comparison 11/26/2016 . Hypoventilation accentuating bronchovascular markings. No evidence o f pneumonia, acute congestive failure, significant pleural fluid katharine ection, or atelectasis. Stable evidence of CABG surgery. Stable aortic atherosclerotic changes. CONCLUSION: Hypoventilation with no oth er evidence of acute cardiopulmonary disease or significant interval change. Procedure Note Interface, Bong Aok Incoming Radiology Results - 2017 12:38 PM CDT History: Altered mental status. AP portable chest: Comparison 11/26/2016. Hypoventilation accentuating bronchovascular markings. No evidence of pneumonia, acute congestive failure, significant pleural fluid collection, or atelectasis. Stable evidence of CABG surgery. Stable aortic atherosclerotic changes. CONCLUSION: Hypoventilation with no other evidence of acute cardiopulmonary disease or significant interval change. Performing Organization Address City/State/[facility] one Number INTERFACE SYSTEM INTERFACE SYSTEM Refer to clinic/hospital department * URINE CULTURE (2017 12:09 PM CDT) Specimen Urine - Urine specimen obtained by clean catch procedure (specimen) Narrative Performed At [facility] See scanned report, performed by Zhanna Kaur. DEVANG MCKINNEY Performing Organization Address City/[facility] Ph one Number [facility] CLIA# [id number] [place] [address] - [place] [address] [place] [address] * URINALYSIS WITH REFLEX CULTURE (2017 12:09 PM CDT) COLOR UA Bloody (A) Pale to dark yellow [facility] - [place] CLARITY UA Bloody (A) Clear [facility] - [place] SPECIFIC 1.020 1.003 - 1.035 [facility] - [place] PH UA 7.0 5.0 - 8.0 [facility] - [place] LEUKOCYTE 3+ (A) Negative [facility] ESTERASE [facility] - [place] NITRITE UA Positive (A) Negative [facility] - [place] PROTEIN UA 3+ (A) Negative [facility] - [place] GLUCOSE UA Trace (A) Negative [facility] - [place] KETONES UA 1+ (A) Negative [facility] - [place] UROBILINOGEN UA <2.0 <2.0 mg/dL [facility] - [place] BILIRUBIN UA Negative Negative [facility] - [facility] [place] BLOOD UA 3+ (A) Negative [facility] - [facility] WBC UA 51-100 (A) 0 - 2 /hpf [facility] - [facility] RBC UA >100 (A) 0 - 2 /hpf [facility] [place] EPITHELIAL 0-5 0 - 5 /hpf [facility] CELLS, URINE LABORATORY [facility] - [place] Specimen Urine - Urine specimen obtained by clean catch procedure (specimen) Narrative Performed At Based on results, a urine culture has been reflexed. [facility] - [place] Performing Organization Address [facility] one Number [facility] CLIA# [id number] [place], [place] [address] - [address] * PREPARE RED BLOOD CELLS (2017 11:55 AM CDT) COMPONENT TYPE [id number] [facility]- [place] COMPONENT [id number] [facility] IDENTIFICATION [facility]- [facility] UNIT ABO A [facility] UNIT RH POS [facility]- [place] COMPONENT Transfused [facility] STATUS LAB[facility] SERVICES- [place] COMPONENT [id number] [facility] EXPIRATION LABORATORY DATE/TIME SERVICES- [place] COMPONENT [id number] [facility] CODING SYSTEM LAB[facility]ATORY SERVICES-[facility] Specimen Other, specify Performing Organization Address City/[facility] Ph one Number [facility] CLIA# [id number] [place] [address] SERVICES-[address] * TYPE AND SCREEN (2017 11:54 AM CDT) ABO GROUP A [facility]- [place] RH (D) TYPE Positive [facility] [place] ANTIBODY SCREEN Negative [facility] Specimen Blood Performing Organization Address City/[facility] one Number [facility] CLIA# [id number] [place] [address] SERVICES-[address] * VERIFICATION BLOOD GROUP (2017 11:43 AM CDT) Pathologist [facility] ABO GROUP A [facility] SERVICES-[facility] RH (D) TYPE Positive [facility] SERVICES- [facility] Specimen Blood Performing Organization Address [facility] one Number [facility] CLIA# [id number] [place] [address] SERVICES-[address] * BLOOD CULTURE (2017 11:43 AM CDT) Specimen Blood - Peripheral Narrative Performed At [facility] See scanned report, performed by Zhanna Kaur. DEVANG ROMERO - [place] Performing Organization Address [facility] one Number [facility] SERVICES CLIA# [id number] [place] [address] - [address] * LACTIC ACID (2017 11:43 AM CDT) Pathologist [facility] LACTIC ACID 1.3 0.5 - 2.2 mmol/L [facility] SERVICES - [place] Specimen Blood Performing Organization Address [facility] one Number [facility] CLIA# [id number] [place] [address] [phone] - [address] * TROPONIN (2017 11:43 AM CDT) Pathologist [facility] TROPONIN T 0.03 (H) <0.01 ng/mL [facility] SERVICES - [place] Specimen Blood Performing Organization Address [facility] one Number [facility] SERVICES CLIA# [id number] [place] [address] - [address] * COMPREHENSIVE METABOLIC PANEL (2017 11:43 AM CDT) Pathologist [facility] SODIUM 129 (L) 136 - 145 mmol/L [facility] SERVICES - [place] POTASSIUM 4.5 3.5 - 5.1 mmol/L [facility] SERVICES - [facility] CHLORIDE 91 (L) 98 - 107 mmol/L [facility] - [place] CO2 21 (L) 22 - 29 mmol/L [facility] - [facility] CALCIUM 8.4 (L) 8.8 - 10.2 mg/dL [facility] - [place] BUN 19 8 - 23 mg/dL [facility] CREATININE 0.70 0.67 - 1.17 mg/dL [facility] - [place] GLUCOSE 265 (H) 70 - 100 mg/dL [facility] TOTAL PROTEIN 5.8 (L) 6.6 - 8.7 g/dL [facility] - [place] ALBUMIN 3.0 (L) 3.5 - 5.2 g/dL [facility] - [place] BILIRUBIN TOTAL <0.1 <=1.2 mg/dL [facility] - [place] ALKALINE 119 40 - 129 U/L [facility] PHOSPHATASE [facility]ORATORY SERVICES - [place] AST 19 <=41 U/L [facility] - [place] ALT 18 10 - 50 U/L [facility] - [place] GFR >60 >=60 mL/min/1.73 sq [facility] Comment: meter LABORATORY eGFR has not been validated [facility] for use in the elderly (> 70 [...] result. GFR, >60 >=60 mL/min/1.73 sq [facility] LABORATORY SERVICES - [place] ANION GAP 17 4 - 20 mmol/L [facility] - [place] Specimen Blood Performing Organization Address City/[facility] Ph one Number [facility] CLIA# [id number] [place] [address] - [place] [address] [facility] * PTT (2017 11:43 AM CDT) PTT 30.6 (H) 23.0 - 30.0 seconds [facility] SERVICES - [place] Specimen Blood Performing Organization Address City/[facility] Ph one Number [facility] SERVICES CLIA# [id number] [place] [address] - [place] [address] [place] [address] * PROTIME-INR (2017 11:43 AM CDT) PROTIME 12.7 (H) 9.6 - 11.0 Seconds [facility] SERVICES - [place] INR 1.2 (L) 2.0 - 3.0 [facility] SERVICES - [place] Specimen Blood Performing Organization Address City/State/[facility] one Number [facility] CLIA# [id number] [place] [address] - [place] 401 [facility] * CBC WITH DIFFERENTIAL (2017 11:43 AM CDT) WBC 13.9 (H) 3.6 - 11.1 K/uL [facility] SERVICES - [place] RBC 2.35 (L) 4.49 - 5.52 M/uL [facility] SERVICES - [place] HEMOGLOBIN 5.8 (LL) 13.3 - 16.5 g/dL [facility] Comment: LABORATORY Critical results called to SERVICES - [place] Aviles in ER by OLEG DOUGLAS on 2017 at 11:54 AM Results read back. HEMATOCRIT 18.7 (LL) 40.7 - 48.9 % [facility] - [place] MCV 79.6 (L) 82.7 - 97.1 fL [facility] SERVICES - [place] MCH 24.7 (L) 27.1 - 32.3 pg [facility] SERVICES - [place] MCHC 31.0 (L) 31.3 - 34.9 g/dL [facility] SERVICES - [place] RDW 16.1 (H) 11.5 - 14.7 % [facility] SERVICES - [place] RDW-STDEV 46.4 37.2 - 47.6 fL [facility] SERVICES - [place] PLATELETS 764 (H) 136 - 352 K/uL [facility] SERVICES - [place] MPV 8.4 (L) 8.6 - 11.8 fL [facility] SERVICES - [place] NEUTROPHILS 66 44 - 74 % [facility] SERVICES - [place] LYMPHOCYTES 25 16 - 44 % [facility] SERVICES - [place] MONOCYTES 8 4 - 11 % [facility] SERVICES - [facility] EOSINOPHILS 1 0 - 6 % [facility] - [place] BASOPHILS 0 0 - 1 % [facility] - [place] IMMATURE 1 0 - 1 % [facility] - [place] NEUTROPHIL 9.20 (H) 1.54 - 7.18 K/uL [facility] - [place] LYMPHOCYTE 3.41 0.69 - 3.61 K/uL [facility] - [place] MONOCYTE 1.06 (H) 0.19 - 0.95 K/uL [facility] - [place] EOSINOPHIL 0.11 0.00 - 0.44 K/uL [facility] - [place] BASOPHILS 0.02 0.00 - 0.10 K/uL [facility] - [place] IMMATURE 0.07 0.00 - 0.09 K/uL [facility]ULOC[facility] ABSOLUTE SERVICES - [place] Specimen Blood Performing Organization Address [facility] Ph one Number [facility] SERVICES CLIA# [id number] [place] [address] - [place] [address] * POC GLUCOSE (2017 11:14 AM CDT) Pathologist [facility] POC GLUCOSE 260 (H) 70 - 100 mg/dL [facility] SERVICES - [place] GARMENT MENDER NAME Nuris Sharma [facility] SERVICES - [place] Specimen Whole blood sample (specimen) Performing Organization Address City/[facility] Ph one Number [facility] SERVICES CLIA# [id number] [place] [address] - [address] documented in this encounter Visit Diagnoses Diagnosis 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02 mcg/kg/min 5 mL/hr Arm, Lef t norepinephrine (LEVOPHED) 4 mg in New Bag dextrose 5% 250 mL infusion 0.02 mcg/kg/min 66.7 kg (5.0025 mL/hr, rounded to 5 mL/hr), IV, at 5 mL/hr, TITRATE, Starting 09/03/17 at 1145, Until Fr i 09/03/17 at 1618, Should this infusion be titrated? Yes, Is this a CABG patient? No, Titration Dose Increment? 0.05 mcg/kg/min, Titration Interval? 10 minutes, Goal Type? SBP Goal, MAP Goal, SBP Goal? Greater than 90, MAP Goal? Greater than 65, First Provider Notification? 1 mcg/kg/min, Second Provider Notification? 2 mcg/kg/min SODIUM CHLORIDE 0.9 % INTRAVENOUS SOLUTION (CABINET OVERRIDE) 1 dose, Starting Wed09/03/17 at 1202, Until Wed09/03/17 at 1245, Chai SOSA: cabinet override, 2017 11:30 AM CDT 1,000 mL 2000 mL/hr Arm, Lef t sodium chloride 0.9% bolus solution New Bag 1,000 mL 1,000 mL, IV, ONE TIME ONLY, 1 dose, Fr i 09/03/17 at 1130, at 2,000 mL/hr, Administer over 30 Minutes, Routine 2017 12:15 PM CDT 2,001 mL 2001 mL/hr sodium chloride 0.9% bolus solution New Bag 2,001 mL 2,001 mL (30 mL/kg 66.7 kg), IV, ONE TIME ONLY, 1 dose, Fr i 09/03/17 at 1145, at 4,002 mL/hr, Administer over 30 Minutes, Routine documented in this encounter Additional Health Concerns Assessment Noted Time A Hypertension Plan of Care has been documented for t pati patient 02/12/2017 12:54 PM CDT documented as of this encounter
--- OUTSIDE RECORDS SUMMARY | 2020-03-24 13:56 | XMS REPORT | Encounter Summary ---
Author Author [facility] Organization [facility] Address Unknown Phone Unavailable Care Team Providers Care Canvas Cutter Hand Name Role Phone Claus Couch MD PCP Reason for Visit * Reason Comments Medication Refill Encounter Details Care Team Description Date Type Department Claus Couch MD [address] [place] [address] 09/09/2017 Refill [facility] Prim[facility] y Care [place] [address] [place] [address] Social History Date Tobacco [...]
--- OUTSIDE RECORDS SUMMARY | 2020-03-24 13:56 | XMS REPORT | Encounter Summary ---
Author Author [facility] Organization [facility] Address Unknown Phone Unavailable Care Team Providers Care Laminator [employer] Name Role Phone Claus Couch MD PCP Reason for Visit * Auth/Cert Referred By Contact Referred To Contact Status Reason Specialty Diagnoses / Procedures [facility] Health [facility] [address] [place] [address] Home Health Encounter Details Care Team Description Date Type Department Marissa Pitts, RN CASE COMMUNICATION 09/08/2017 [facility] [address] [place] [address] Social History Date Tobacco Use [...]
--- OUTSIDE RECORDS SUMMARY | 2020-03-24 13:56 | XMS REPORT | Encounter Summary ---
Author Author [facility] Organization [facility] Address Unknown Phone Unavailable Care Team Providers Care Universal Worker Assisted Living Name Role Phone Claus Couch MD PCP Reason for Visit * Auth/Cert Referred By Contact Referred To Contact Status Reason Specialty Diagnoses / Procedures [facility] [place] [id number] [place] [address] Home Health Encounter Details Care Team Description Date Type Department Shahram Dyson Physical Therapist PT - REASSESSMENT 08/24/2017 [facility] [address] [place] [address] Social History Date Tobacco [...] Signs Reading Time Taken Comments Vital Sign 124/70 08/25/2017 9:03 AM CDT Blood Pressure 95 08/25/2017 9:03 AM CDT Pulse - - Temperature - [...] Problem Descriptio Start Date n Resolved on 08/24/2017 - 1 problem intervention scheduled/documented in this visit Home Safety Home 07/13/2017 Disciplines: safety Physical Therapy Active - 1 problem intervention scheduled/documented in this visit PT Establish or Upgrade Home 07/13/2017 Home Program exercise Disciplines: program Physical Therapy Active - 1 problem intervention scheduled/documented in this visit PT Gait Training Gait 07/13/2017 Disciplines: evaluation Physical Therapy and training in appropriat e use of assistive devices. Active - 1 problem intervention scheduled/documented in this visit PT Transfer Training Transfer 07/28/2017 Disciplines: Training Physical Therapy Variance Visit Notes Intervention Associated Status Problem/Go al Pt demos mod (I) transfers and appropriate use of the 2WW. Pt has caregiver supervision/assist as needed. Instruct home safety Problem: Completed Description: Home Instruct patient and Safety caregiver as needed in home and fall safety precautions through the Fall Prevention Program. Pt sits for (B) knee raises, LAQ ex x 10 reps each. Pt reclines for (B) SLR, hip abd/add, heel slides x 10 reps each. Pt stands for (B) heel raises, mini-squats, hip abd and marches x 10 reps each. PT establish or upgrade Problem: Completed home program PT Description: Establish Home exercise program for or Upgrade generalized LE Home strengthening. Program Pt amb nearly 150 ft x 2 using the 2WW and supervision of therapist. Pt demos slow, steady gait on level surface. Pt gait training Problem: Completed Description: PT Gait Evaluate and instruct Training patient and caregiver in safe gait training on all surfaces including step/ramp training as needed in home or to exit home, full wt-bearing and using a 2WW. Pt demos mod (I) sit to stand transfer to/fm the lift chair recliner in omly slight elevation of the chair. Pt successfully completes three transfers. PT transfer training Problem: Completed Description: PT Evaluate and instruct Transfer patient/caregiver in safe Training transfer training using appropriate body mechanics, full weight bearing, and necessary equipment. documented in this encounter Home Health Visit - Actions and Narratives Pt says he is walking frequently w/care services manager assist using the 2WW. documented in this encounter
--- OUTSIDE RECORDS SUMMARY | 2020-03-24 13:56 | XMS REPORT | Encounter Summary ---
Author Author [facility] Organization [facility] Address Unknown Phone Unavailable Care Team Providers Care Material Control Clerk Name Role Phone Claus Couch MD PCP Reason for Visit * Reason Comments Urinary Pain Patient has presented to ER with cc blood in his urine and pain when he voids for the last 2 days. He states t he he just does not feel well. Pt states that he feels weak this afternoo n and he almost fell this afternoon. PT reports a cough for a long time. Encounter Details Care Team Description Date Type Department Gio Rodgers MD NO ADDRESS ON FILE Acute cystitis with hematuria (Primary D x) 09/01/2017 Emergency [facility] Emergency Department [address] [address] Social History Date Tobacco [...] Signs Reading Time Taken Comments Vital Sign 96/80 09/01/2017 2:37 PM CDT Blood Pressure - - Pulse 36.8 C (98.2 F) 09/01/2017 2:37 PM CDT Temperature 20 09/01/2017 2:37 PM CDT Respiratory Rate 98% 09/01/2017 2:37 PM CDT Oxygen Saturation - - Inhaled Oxygen Concentration - - Weight 167.6 cm (5' 6") 09/01/2017 2:37 PM CDT Height - - Body Mass Index documented in this encounter Discharge Instructions * Instructions* Gio Rodgers MD - 09/01/2017 Please . Read the provided handouts . Consider cranberry juice for the duration of your antibiotic therapy . Start your medication today . Follow up with your PCP if not improved * Attachments The following attachments cannot be sent through Care Everywhere.* UTI (URINARY TRACT INFECTION): MALE (POLISH) documented in this encounter Medications at Time [...] pending changes by a home health clinician.] 08/19/2017 09/02/2017 fluconazole (DIFLUCAN) Take 1 Tablet 14 Tablet 0 200 mg tablet (200 mg) by mouth daily for 14 days. 08/13/2017 09/09/2017 oxyCODONE-acetaminophen TAKE 2 30 Tablet [...] (FLONASE) 50 Administer 2 16 Gram mcg/spray Kamas, Sprays in Suspension each nostril daily. 07/07/2017 [...] with lunch. documented as of this encounter ED Notes * Gio Rodgers MD - 09/01/2017 2:28 PM CDT HISTORY OF PRESENT ILLNESS Oliverio Dalton, a 66 y.o. male presents to the ED with a Chief Complaint of Ur inary Pain Subjective HPI REVIEW OF SYSTEMS Review of Systems Constitutional: Negative for activity change, appetite change, chills and fever. HENT: Negative for congestion, ear pain, rhinorrhea, sinus pressure, sneezing, s ore throat and trouble swallowing. Respiratory: Negative for cough, shortness of breath and wheezing. Cardiovascular: Negative for chest pain. Gastrointestinal: Negative for abdominal pain, constipation, diarrhea, nausea an d vomiting. Genitourinary: Positive for difficulty urinating, dysuria and hematuria. Negativ e for discharge, flank pain, penile pain and testicular pain. PAST MEDICAL HISTORY REVIEWED MEDICAL: Patient has [...] HOME MEDICATIONS Discharge Medication List as of 09/01/2017 4:29 PM START taking these medications Details ciprofloxacin HCl (CIPRO) 250 mg tablet Take 1 Tablet (250 mg) by mouth 2 times daily for 5 days., Disp-10 Tablet, R-0 CONTINUE these medications which have NOT CHANGED Details LORazepam (ATIVAN) 1 mg tablet TAKE ONE TABLET BY MOUTH 2 TIMES A DAY.., Disp-60 Tablet, R-2 gabapentin (NEURONTIN) 300 mg capsule Take 1 Capsule (300 mg) by mouth daily at bedtime., Disp-30 Capsule, R-5 ramipril (ALTACE) 10 mg capsule Take 1 Cap by mouth daily., Disp-90 Capsule, R-3 tamsulosin (FLOMAX) 0.4 mg capsule TAKE ONE CAPSULE BY MOUTH EVERY DAY 30 MINUTE S AFTER SUPPER, Disp-30 Capsule, R-11 phenytoin sodium (DILANTIN EXTENDED) 100 mg extended release capsule Take 200 mg by mouth 2 times daily . OLANZapine (ZyPREXA) 2.5 mg tablet Take 1 Tab by mouth daily at bedtime., Disp-3 0 Tablet, R-5 oxyCODONE (OxyCONTIN) 20 mg Controlled Release 12 hour crush resistant tablet Ta ke 1 Tablet (20 mg) by mouth every 12 hours., Disp-60 Tablet, R-0 fluconazole (DIFLUCAN) 200 mg tablet Take 1 Tablet (200 mg) by mouth daily for 1 4 days., Disp-14 Tablet, R-0 oxyCODONE-acetaminophen (PERCOCET) 10-325 mg Tablet [...] as needed for Insomnia., Disp-30 Capsule, R-2 FLUoxetine (PROzac) 20 mg capsule TAKE 2 [...] Disp-120 Tablet, R-3 fluticasone (FLONASE) 50 mcg/spray Kamas, Suspension Administer 2 Sprays in each nostril daily., Disp-16 Gram, R-PRN pioglitazone (ACTOS) 30 mg tablet Take 1 Tab by mouth daily., Disp-90 Tablet, R- 1 PROAIR HFA 90 mcg/actuation inhaler Take 2 Puffs by inhalation every 4 hours as needed for Shortness of Br eath., Disp-8.5 Gram, R-11 fenofibrate nanocrystallized (TRICOR) 145 mg tablet Take 1 Tab by mouth daily wi th supper., Disp-30 Tablet, R-11 simvastatin (ZOCOR) 40 mg tablet TAKE ONE TABLET (40MG) BY MOUTH EVERY DAY IN TH E EVENING, Disp-90 Tablet, R-1 isosorbide mononitrate [...] daily at bedtime., Disp-30 Ta blet, R-5 fluticasone (FLOVENT HFA) 110 mcg/actuation HFA [...] daily. Objective PHYSICAL EXAM INITIAL VS BP: 96/80 (09/01/17 1437), Heart Rate: 87 bpm (09/01/17 1437), Resp: 20 ( 7 1437), Temp: 98.2 F (36.8 C) (09/01/17 1437), Temp src: Oral (09/01/17 143 7), SpO2: 98 % (09/01/17 1437), Height: 5' 6" (167.6 cm) (09/01/17 1437), Weight : (not recorded), BMI (Calculated): (not recorded) No LMP for male patient. Physical Exam Constitutional: He is oriented to person, place, and time. He appears well-devel oped and well-nourished. No distress. Eyes: Conjunctivae and EOM are normal. Pupils are equal, round, and reactive to light. Right eye exhibits no discharge. Left eye exhibits no discharge. No scler al icterus. Cardiovascular: Normal rate, regular rhythm and normal heart sounds. No murmur heard. Pulmonary/Chest: Effort normal and breath sounds normal. No respiratory distress . He has no wheezes. Abdominal: Soft. Bowel sounds are normal. There is no tenderness. There is no re bound, no guarding and no CVA tenderness. No suprapubic tenderness Musculoskeletal: He exhibits no edema. Neurological: He is alert and oriented to person, place, and time. No cranial ne rve deficit. Skin: He is not diaphoretic. Psychiatric: He has a normal mood and affect. His behavior is normal. Judgment a nd thought content normal. Nursing note and vitals reviewed. DIAGNOSTICS LAB: Labs this ED Encounter URINALYSIS WITH REFLEX CULTURE - Abnormal Result Value COLOR UA Bloody (*) CLARITY UA Bloody (*) LEUKOCYTE ESTERASE UA 2+ (*) NITRITE UA Positive (*) PROTEIN UA 3+ (*) GLUCOSE UA Trace (*) KETONES UA 1+ (*) BLOOD UA 3+ (*) WBC UA 6-10 (*) RBC UA >100 (*) BACTERIA UA 1+ (*) SPECIFIC GRAVITY UA 1.015 PH UA 7.5 UROBILINOGEN UA <2.0 BILIRUBIN UA Negative Narrative: Based on results, a urine culture has been reflexed. CBC WITH DIFFERENTIAL - Abnormal WBC 11.8 (*) RBC 3.07 (*) HEMOGLOBIN 7.6 (*) HEMATOCRIT 24.3 (*) MCV 79.2 (*) MCH 24.8 (*) RDW 15.9 (*) PLATELETS 734 (*) MPV 8.2 (*) NEUTROPHIL ABSOLUTE 8.19 (*) MONOCYTE ABSOLUTE 1.03 (*) MCHC 31.3 RDW-STDEV 45.9 NEUTROPHILS 69 LYMPHOCYTES 21 MONOCYTES 9 EOSINOPHILS 0 BASOPHILS 0 IMMATURE GRANULOCYTES 0 LYMPHOCYTE ABSOLUTE 2.48 EOSINOPHIL ABSOLUTE 0.05 BASOPHILS ABSOLUTE 0.02 IMMATURE GRANULOCYTES ABSOLUTE 0.04 COMPREHENSIVE METABOLIC PANEL - Abnormal SODIUM 131 (*) CHLORIDE 92 (*) CALCIUM 8.6 (*) CREATININE 0.60 (*) GLUCOSE 223 (*) TOTAL PROTEIN 6.0 (*) ALBUMIN 3.0 (*) ALKALINE PHOSPHATASE 170 (*) AST 88 (*) POTASSIUM 4.5 CO2 23 BUN 17 BILIRUBIN TOTAL <0.1 ALT 36 GFR >60 GFR, >60 ANION GAP 16 URINE CULTURE RADIOLOGY: No orders to display EKG: PROCEDURES Procedures MEDICAL DECISION MAKING AND PLAN OF CARE ED Course MDM I have reviewed previous: notes I have reviewed current: labs Labs: UTI per urine I have reviewed nursing notes related to past medical history, social history, a nd review of systems and agree, unless otherwise noted. Clinical Course: Bolus 500 ml NL UTI per urine cipro x 5 days F/u w/ pcp if not improved Medications Administered During the ED Stay from 09/01/2017 1428 to 09/01/2017 1 657 Date/Time Order Dose Route Action 09/01/2017 1512 sodium chloride 0.9 % flush injection 3 mL 3 mL IV Given 09/01/2017 1634 sodium chloride 0.9% bolus solution 500 mL 0 mL IV Stopped 09/01/2017 1604 sodium chloride 0.9% bolus solution 500 mL 500 mL IV New Bag Discharge Medication List as of 09/01/2017 4:29 PM START taking these medications Details ciprofloxacin HCl (CIPRO) 250 mg tablet Take 1 Tablet (250 mg) by mouth 2 times daily for 5 days., Disp-10 Tablet, R-0 CONTINUE these medications which have NOT CHANGED Details LORazepam (ATIVAN) 1 mg tablet TAKE ONE TABLET BY MOUTH 2 TIMES A DAY.., Disp-60 Tablet, R-2 gabapentin (NEURONTIN) 300 mg capsule Take 1 Capsule (300 mg) by mouth daily at bedtime., Disp-30 Capsule, R-5 ramipril (ALTACE) 10 mg capsule Take 1 Cap by mouth daily., Disp-90 Capsule, R-3 tamsulosin (FLOMAX) 0.4 mg capsule TAKE ONE CAPSULE BY MOUTH EVERY DAY 30 MINUTE S AFTER SUPPER, Disp-30 Capsule, R-11 phenytoin sodium (DILANTIN EXTENDED) 100 mg extended release capsule Take 200 mg by mouth 2 times daily . OLANZapine (ZyPREXA) 2.5 mg tablet Take 1 Tab by mouth daily at bedtime., Disp-3 0 Tablet, R-5 oxyCODONE (OxyCONTIN) 20 mg Controlled Release 12 hour crush resistant tablet Ta ke 1 Tablet (20 mg) by mouth every 12 hours., Disp-60 Tablet, R-0 fluconazole (DIFLUCAN) 200 mg tablet Take 1 Tablet (200 mg) by mouth daily for 1 4 days., Disp-14 Tablet, R-0 oxyCODONE-acetaminophen (PERCOCET) 10-325 mg Tablet [...] as needed for Insomnia., Disp-30 Capsule, R-2 FLUoxetine (PROzac) 20 mg capsule TAKE 2 [...] Disp-120 Tablet, R-3 fluticasone (FLONASE) 50 mcg/spray Kamas, Suspension Administer 2 Sprays in each nostril daily., Disp-16 Gram, R-PRN pioglitazone (ACTOS) 30 mg tablet Take 1 Tab by mouth daily., Disp-90 Tablet, R- 1 PROAIR HFA 90 mcg/actuation inhaler Take 2 Puffs by inhalation every 4 hours as needed for Shortness of Br eath., Disp-8.5 Gram, R-11 fenofibrate nanocrystallized (TRICOR) 145 mg tablet Take 1 Tab by mouth daily wi th supper., Disp-30 Tablet, R-11 simvastatin (ZOCOR) 40 [...] daily at bedtime., Disp-30 Ta blet, R-5 fluticasone (FLOVENT HFA) 110 mcg/actuation HFA [...] eyes 2 times daily. LAST VS BP: 96/80 (09/01/17 1437), Heart Rate: 87 bpm (09/01/17 1437), Resp: 20 ( 7 1437), Temp: 98.2 F (36.8 C) (09/01/17 1437), Temp src: Oral (09/01/17 143 7), SpO2: 98 % (09/01/17 1437) CLINICAL IMPRESSION Final diagnoses: [N30.01] Acute cystitis with hematuria (Primary) DISPOSITION, EDUCATION AND MEDICATION RECONCILIATION Medications reconciled. See after visit summary for patient education on discha rged patients. ED Disposition ED Disposition Condition User Date/Time Comment Discharge Stable Gio Rodgers MD WedSep 01, 2017 4:11 PM ATTESTATION STATEMENTS documented in this encounter Plan of Treatment Not on filedocumented as of this encounter Procedures Comments Procedure Name Priority Date/Time Associated Diag nosis URINALYSIS WITH REFLEX Stat 09/01/2017 CULTURE 3:47 PM CDT URINE CULTURE Routine 09/01/2017 3:47 PM CDT CBC WITH DIFFERENTIAL Stat 09/01/2017 3:10 PM CDT COMPREHENSIVE METABOLIC Stat 09/01/2017 PANEL 3:10 PM CDT documented in this encounter Results * URINE CULTURE (09/01/2017 3:47 PM CDT) Specimen Urine - Urine specimen obtained by clean catch procedure (specimen) Narrative Performed At [facility] See scanned report, performed by Zhanna Kaur. [facility] [place] Performing Organization Address City/State/Zipcode Ph one Number [facility] CLIA# [id number] [place] [address] - [place] [address] [facility] * URINALYSIS WITH REFLEX CULTURE (09/01/2017 3:47 PM CDT) COLOR UA Bloody (A) Pale to dark yellow [facility] [place] CLARITY UA Bloody (A) Clear [facility] [place] SPECIFIC 1.015 1.003 - 1.035 [facility] GRAVITY UA [facility] - [place] PH UA 7.5 5.0 - 8.0 [facility] [place] LEUKOCYTE 2+ (A) Negative [facility] ESTERASE UA [facility] [place] NITRITE UA Positive (A) Negative [facility] [place] PROTEIN UA 3+ (A) Negative [facility] [place] GLUCOSE UA Trace (A) Negative [facility] [place] KETONES UA 1+ (A) Negative [facility] [place] UROBILINOGEN UA <2.0 <2.0 mg/dL [facility] [place] BILIRUBIN UA Negative Negative [facility] [place] BLOOD UA 3+ (A) Negative [facility] [place] WBC UA 6-10 (A) 0 - 2 /hpf [facility] [place] RBC UA >100 (A) 0 - 2 /hpf [facility] [place] BACTERIA UA 1+ (A) Negative /hpf [facility] [place] Specimen Urine - Urine specimen obtained by clean catch procedure (specimen) Narrative Performed At Based on results, a urine culture has been reflexed. [facility] [place] Performing Organization Address City/State/Zipcode Ph one Number [facility] CLIA# [id number] [place] [address] - [place] [address] [facility] * COMPREHENSIVE METABOLIC PANEL (09/01/2017 3:10 PM CDT) SODIUM 131 (L) 136 - 145 mmol/L [facility] [place] POTASSIUM 4.5 3.5 - 5.1 mmol/L [facility] [place] CHLORIDE 92 (L) 98 - 107 mmol/L [facility] [place] CO2 23 22 - 29 mmol/L [facility] [place] CALCIUM 8.6 (L) 8.8 - 10.2 mg/dL [facility] [place] BUN 17 8 - 23 mg/dL [facility] [place] CREATININE 0.60 (L) 0.67 - 1.17 mg/dL [facility] [place] GLUCOSE 223 (H) 70 - 100 mg/dL [facility] [place] TOTAL PROTEIN 6.0 (L) 6.6 - 8.7 g/dL [facility] [place] ALBUMIN 3.0 (L) 3.5 - 5.2 g/dL [facility] [place] BILIRUBIN TOTAL <0.1 <=1.2 mg/dL [facility] [place] ALKALINE 170 (H) 40 - 129 U/L [facility] PHOSPHATASE [facility] [place] AST 88 (H) <=41 U/L [facility] [place] ALT 36 10 - 50 U/L [facility] [place] GFR >60 >=60 mL/min/1.73 sq [facility] Comment: meter LABORATORY eGFR has not been validated SERVICES [facility] for use in the elderly (> [...] result. GFR, >60 >=60 mL/min/1.73 sq [facility] [place] ANION GAP 16 4 - 20 mmol/L [facility] [place] Specimen Blood Performing Organization Address City/State/[facility] Ph one Number [facility] CLIA# [id number] [place] [address] - [place] [address] [facility] * CBC WITH DIFFERENTIAL (09/01/2017 3:10 PM CDT) WBC 11.8 (H) 3.6 - 11.1 K/uL [facility] [place] RBC 3.07 (L) 4.49 - 5.52 M/uL [facility] [place] HEMOGLOBIN 7.6 (L) 13.3 - 16.5 g/dL [facility] [place] HEMATOCRIT 24.3 (L) 40.7 - 48.9 % [facility] [place] MCV 79.2 (L) 82.7 - 97.1 fL [facility] [place] MCH 24.8 (L) 27.1 - 32.3 pg [facility] [place] MCHC 31.3 31.3 - 34.9 g/dL [facility] [place] RDW 15.9 (H) 11.5 - 14.7 % [facility] [place] RDW-STDEV 45.9 37.2 - 47.6 fL [facility] [place] PLATELETS 734 (H) 136 - 352 K/uL [facility] [place] MPV 8.2 (L) 8.6 - 11.8 fL [facility] [place] NEUTROPHILS 69 44 - 74 % [facility] [place] LYMPHOCYTES 21 16 - 44 % [facility] [place] MONOCYTES 9 4 - 11 % [facility] [place] EOSINOPHILS 0 0 - 6 % [facility] [place] BASOPHILS 0 0 - 1 % [facility] [place] IMMATURE 0 0 - 1 % [facility] [place] NEUTROPHIL 8.19 (H) 1.54 - 7.18 K/uL [facility] [place] LYMPHOCYTE 2.48 0.69 - 3.61 K/uL [facility] [place] MONOCYTE 1.03 (H) 0.19 - 0.95 K/uL [facility] [place] EOSINOPHIL 0.05 0.00 - 0.44 K/uL [facility] [place] BASOPHILS 0.02 0.00 - 0.10 K/uL [facility] [place] IMMATURE 0.04 0.00 - 0.09 K/uL [facility] GRANULOCYTES [facility] - [place] Specimen Blood Performing Organization Address City/State/Zipcode Ph one Number [facility] CLIA# [id number] [place] [address] - [place] [address] [facility] documented in this encounter Visit Diagnoses Diagnosis Acute cystitis with hematuria - Primary Acute cystitis documented in this encounter Administered Medications Action Date Dose Rate Site Medication Order MAR Action 09/01/2017 3:12 PM CDT 3 mL sodium chloride 0.9 % flush injection 3 Given mL 3 mL, IV, ONE TIME ONLY, 1 dose, 09/01/17 at 1515, Routine 09/01/2017 4:04 PM CDT 500 mL 1000 mL/hr sodium chloride 0.9% bolus solution 500 New Bag mL 500 mL, IV, ONE TIME ONLY, 1 dose, 09/01/17 at 1600, at 1,000 mL/hr, Administer over 30 Minutes, Routine documented in this encounter Additional Health Concerns Assessment Noted Time A Hypertension Plan of Care has been documented for t pati patient 02/12/2017 12:54 PM CDT documented as of this encounter
--- OUTSIDE RECORDS SUMMARY | 2020-03-24 13:56 | XMS REPORT | Encounter Summary ---
Author Author [facility] Organization [facility] Address Unknown Phone Unavailable Care Team Providers Care Center Maker Hand Name Role Phone Claus Couch MD PCP Encounter Details Care Team Description Date Type Department Claus Couch MD [address] [place] [address] 09/08/2017 Abstract [facility] Primar y Care [place] [address] [place] [address] Social History Date Tobacco Use [...]
--- OUTSIDE RECORDS SUMMARY | 2020-03-24 13:56 | XMS REPORT | Encounter Summary ---
Author Author [facility] Organization [facility] Address Unknown Phone Unavailable Care Team Providers Care Atmospheric Physicist Name Role Phone Claus Couch MD PCP Encounter Details Care Team Description Date Type Department Mary Zhou MD NO ADDRESS ON FILE 08/31/2017 Abstract [facility] Primar y Care [place] [address] [place] [address] Social History Date Tobacco Use [...]
--- OUTSIDE RECORDS SUMMARY | 2020-03-24 13:56 | XMS REPORT | Encounter Summary ---
Author [facility] Organization [facility] Address Unknown Phone Unavailable Care Team Providers Care Hemmer Automatic Name Role Phone Claus Couch MD PCP Reason for Visit * Auth/Cert Referred By Contact Referred To Contact Status Reason Specialty Diagnoses / Procedures [facility] [place] [address] [place] [address] Home Health Encounter Details Care Team Description Date Type Department Shahram Dyson Physical Therapist PT - DISCIPLINE DISCHARGE 08/27/2017 [facility] [address] [place] [address] Social History Date Tobacco Use [...] Reading Time Taken Comments Vital Sign 118/66 08/27/2017 10:30 AM CDT Blood Pressure 96 08/27/2017 10:30 AM CDT Pulse - - Temperature - [...] Problem Descriptio Start Date n Resolved on 08/27/2017 - 1 problem intervention scheduled/documented in this visit PT Establish or Upgrade Home 07/13/2017 Home Program exercise Disciplines: program Physical Therapy Resolved on 08/27/2017 - problem intervention scheduled/documented in this visit PT Gait Training Gait 07/13/2017 Disciplines: evaluation Physical Therapy and training in appropriat e use of assistive devices. Resolved on 08/27/2017 - problem intervention scheduled/documented in this visit PT Transfer Training Transfer 07/28/2017 Disciplines: Training Physical Therapy Variance Visit Notes Intervention Associated Status Problem/Go al Pt demos (I) w/the HEP routine for (B) LE's: pt sits for (B) knee raises, LAQ ex x 10 reps each; pt stands for (B) heel raises, mini-squats, hip abd and marches x 10 reps each. Pt is moderately SOA at the completion of the routine and needs several minutes to recover from fatigue/SOA. PT establish or upgrade Problem: Completed home program PT Description: Establish Home exercise program for or Upgrade generalized LE Home strengthening. Program Pt amb 140 ft x 1, 70 ft x 1 using 2WW and supervision of therapist. Pt's gait is steady and pace of gait is normal. Pt would require CGA for amb on community surfaces. Pt gait training Problem: Completed Description: PT Gait Evaluate and instruct Training patient and caregiver in safe gait training on all surfaces including step/ramp training as needed in home or to exit home, full wt-bearing and using a 2WW. Pt demos successful sit to stand transfer to/fm w/c w/o any assist from therapist. Pt needs only supervision for safe transfers. PT transfer training Problem: Completed Description: PT Evaluate and instruct Transfer patient/caregiver in safe Training transfer training using appropriate body mechanics, full weight bearing, and necessary equipment. documented in this encounter Home Health Visit - Actions and Narratives Pt says he is getting a new bed to help prevent pressure on his buttocks/open wounds. Pt says he will continue the HEP and walking stacy alva w/caregiver assist after D/C from HH PT. documented in this encounter
--- OUTSIDE RECORDS SUMMARY | 2020-03-24 13:57 | XMS REPORT | Encounter Summary ---
Author Author [facility] [place] Phone Unavailable Care Team Providers Care Telephone Interviewer Name Role Phone Claus Couch MD PCP Reason for Visit * Auth/Cert Referred By Contact Referred To Contact Status Reason Specialty Diagnoses / Procedures [facility] [place] [address] [place] [address] Home Health Encounter Details Care Team Description Date Type Department Shahram Dyson Physical Therapist PT - HOME VISIT 08/19/2017 [facility] [address] [place] [address] Social History Date Tobacco Use [...] Signs Reading Time Taken Comments Vital Sign 118/78 08/19/2017 10:09 AM CDT Blood Pressure 84 08/19/2017 10:09 AM CDT Pulse - - Temperature - [...] Notes Intervention Associated Status Problem/Go al Pt is WBAT on the (R) LE; pt demos fair balance and coord when amb w/2WW; pt needs only supervision for safe amb on level surface w/2WW. Instruct home safety Problem: Completed Description: Home Instruct patient and Safety caregiver as needed in home and fall safety precautions through the Fall Prevention Program. Pt sits for (B) knee raises, LAQ ex x 10 reps each. Pt reclines for (B) SLR, knees to chest and hip abd/add ex x 10 reps each. Pt stands w/2WW for (B) marches x 10 and mini-squats, x 5 reps each. PT establish or upgrade Problem: Completed home program PT Description: Establish Home exercise program for or Upgrade generalized LE Home strengthening. Program Pt amb 75 ft x 1 using 2WW on level surface. Pt demos fair balance and coord and had one miscue where he stumbled backwards and needed min asst to keep his balance. Pt gait training Problem: Completed Description: PT Gait Evaluate and instruct Training patient and caregiver in safe gait training on all surfaces including step/ramp training as needed in home or to exit home, full wt-bearing and using a 2WW. Pt needs mod assist of 1 to get up from the recliner; pt is able to transfer w/min assist to/fm the bed due to it being higher than the recliner. PT transfer training Problem: Completed Description: PT Evaluate and instruct Transfer patient/caregiver in safe Training transfer training using appropriate body mechanics, full weight bearing, and necessary equipment. documented in this encounter Home Health Visit - Actions and Narratives Pt says he is doing much better; pt has a 'isidro appt this afternoon. documented in this encounter
--- OUTSIDE RECORDS SUMMARY | 2020-03-24 13:57 | XMS REPORT | Encounter Summary ---
Author Author [facility] Organization [facility] Address Unknown Phone Unavailable Care Team Providers Care Finishing And Shipping Supervisor Name Role Phone Claus Couch MD PCP Encounter Details Care Team Description Date Type Department Mary Zhou MD NO ADDRESS ON FILE 08/24/2017 Hospital [facility] ort Encounter [facility] [address] [place] [address] Social History Date Tobacco Use [...] Signs Reading Time Taken Comments Vital Sign 84/51 08/24/2017 2:33 PM CDT Blood Pressure 94 08/24/2017 2:33 PM CDT Pulse 36.4 C (97.5 F) 08/24/2017 2:33 PM CDT Temperature 20 08/24/2017 2:33 PM CDT Respiratory Rate - - Oxygen Saturation - - Inhaled Oxygen Concentration 67 kg (147 lb 12.8 oz) 08/24/2017 2:33 PM CDT Weight 167.6 cm (5' 6") 08/24/2017 2:33 PM CDT Height 23.86 08/24/2017 2:33 PM CDT Body Mass Index documented in [...] Tablet 5 tablet mouth daily at bedtime. 08/23/2017 08/25/2017 ondansetron (ZOFRAN ODT) Place 1 8 Tablet 1 4 mg Tablet, Rapid Tablet (4 mg) Dissolve under tongue every 6 hours as needed for Nausea/Emesis . 08/23/2017 09/24/2017 oxyCODONE (OxyCONTIN) 20 [The details [...] (FLONASE) 50 Administer 2 16 Gram mcg/spray [place], Sprays in Suspension each nostril daily. 07/07/2017 [...] as of this encounter Progress Notes * Nuris Sharma RN - 08/24/2017 3:25 PM CDT WOUND CARE TREATMENT NOTE [id number] Patient Name: Oliverio Dalton : 1950 Visit # 3 Date: 08/24/2017 Charges Time In: 1430 Time Out: 1500 Total Time: 30 minutes Medical Diagnosis: Patient Active Problem List Diagnosis Code Renal stone N20.0 Essential hypertension I10 Seizure R56.9 Hypertrophy of prostate without urinary obstruction and other lower urinary tract symptoms (LUTS) N40.0 Neurogenic bladder N31.9 Unspecified glaucoma H40.9 Bipolar disorder, unspecified F31.9 Hyperlipidemia E78.5 Tubular adenoma D36.9 Status post laparoscopic appendectomy Z90.49 Umbilical hernia without mention of obstruction or gangrene K42.9 Bradycardia R00.1 Back pain M54.9 LFT elevation R94.5 Osteoarthritis of right knee M17.11 Carpal tunnel [...] L89.313 Treatment Diagnosis: stage 3 pressure ulcer of coccyx, stage 3 pressure ulcer of left upper buttock, stage 3 pressure ulcer of right upper buttock Subjective still having pain in coccyx region. Reports eating well for breakfast and dinne r but having protein shake for lunch. Trying to sleep and lay in bed more and tu rning side to side, continues to use waffle cushion in chair. Caregiver reports dressings have been staying on for 24 hours and they are changing dressings jono chahal. Problem List diabetes inadequate pressure relief nutrition wound(s) Alteration in skin integrity Alternation in comfort Excessive drainage Potential for/or infection Fall Risk Objective See Doc Flow Sheets for wound measurements and information. Patient presents wit h wounds not dressed today. Wounds cleansed with wound cleanser, wound beds note d to be pale pink with slough in bases. 2.5% lidocaine/prilocaine cream applied. Dr zhou here to evaluate and plan of care discussed, after reevaluation of wou nds the left and right gluteal wounds are reclassified as left and right buttock pressure ulcer stage 3. wound debrided by dr. zhou with 3mm curette. Dressed w ith mepilex ex ag to wound bed and cover with mepilex ag and secured with medipo re tape. Wound treatment and progress reviewed and the wounds have not responded to advanced wound care dressings, debridements, chair cushion, positioning and protein supplements over a [address] Zhou recommends and is writing prescription for low air loss mattress for treatment of pressure ulcers that hav e not responded to the above treatments. Coccyx pressure ulcer is 1x1x0.3cm, rig ht buttock pressure ulcer is 0.2x0.5x0.2, left buttock pressure ulcer is 0.5x1.2 x0.3 cm. Right Pulse Right Edema Left Pulse Left Edema none none Assessment Short Term Goals:not progressing Education Instructed on plan of care and understanding verbalized. Plan Daily dressing changes: cleanse with soap and water or wound cleanser, apply max orb ex ag to wound beds and cover with mepilex ag, secure with medipore tape Continue to use waffle cushion when sitting up Continue to increase time in bed and turning side to side. Low air loss air mattress to bed Return to clinic in [address] Colon in dr. arceo absence. Wednesday at 11:00 Comments: Contact Information [facility] [address] [place] [id number] Phone - Please leave a message * Mary Zhou MD - 08/24/2017 3:12 PM CDT Subjective: Patient no new complaints. Patient has developed current non healing stage III decubitus ulcers due to being bedridden in current bed. Patient likely not able to turn frequently to prevent pressure ulcers. Low air loss mattress will be r equired due to patient having developed 3 stage III decubitus ulcers, limited mo bility, compromised circulation, and requires frequent changes in body position. Current Outpatient Prescriptions Medication Sig Dispense Refill ondansetron (ZOFRAN ODT) 4 mg Tablet, Rapid Dissolve Place 1 Tablet (4 mg) u nder tongue every 6 hours as needed for Nausea/Emesis. 8 Tablet 1 oxyCODONE (OxyCONTIN) 20 mg Controlled Release 12 hour crush resistant table t Take 1 Tablet (20 mg) by mouth every 12 hours. 60 Tablet 0 fluconazole (DIFLUCAN) 200 mg tablet Take 1 Tablet (200 mg) by mouth daily f or 14 days. 14 Tablet 0 oxyCODONE-acetaminophen (PERCOCET) 10-325 mg Tablet TAKE 2 TABLETS EVERY 4 H OURS NEEDED FOR BREAKTHRU PAIN. 30 Tablet 0 sennosides-docusate sodium (SENOKOT-S) 8.6-50 mg tablet Take 1 Tablet by henrik th daily. 30 Tablet 5 raNITIdine (ZANTAC) 150 mg tablet Take 1 Tablet (150 mg) by mouth daily at b edtime. 30 Tablet 5 naproxen sodium (ALEVE) 220 mg Tablet Take 440 mg by mouth daily. fentaNYL (DURAGESIC) 50 mcg/hr patch Apply 1 Patch to skin as directed every third day. ferrous sulfate 325 mg (65 mg iron) [...] TIMES A DAY.. 60 T ablet 2 gabapentin (NEURONTIN) 300 mg capsule Take 1 Capsule (300 mg) by mouth daily at bedtime. 30 Capsule 5 FLUoxetine (PROzac) 20 mg capsule TAKE 2 [...] 120 Tablet 3 fluticasone (FLONASE) 50 mcg/spray [place], Suspension Administer 2 Sprays in each nostril daily. 16 Gram PRN pioglitazone (ACTOS) 30 mg tablet Take 1 Tab by mouth daily. 90 Tablet 1 PROAIR HFA 90 mcg/actuation inhaler Take 2 Puffs by inhalation every 4 hours as needed for Shortness of Br eath. 8.5 Gram 11 ramipril (ALTACE) 10 mg capsule Take 1 Cap by mouth daily. 90 Capsule 3 tamsulosin (FLOMAX) 0.4 mg capsule TAKE ONE CAPSULE BY MOUTH EVERY DAY 30 OH NUTES AFTER SUPPER 30 Capsule 11 fenofibrate nanocrystallized (TRICOR) 145 mg tablet Take 1 Tab by mouth jono y with supper. 30 Tablet 11 simvastatin (ZOCOR) 40 mg tablet TAKE ONE TABLET (40MG) BY MOUTH EVERY DAY I N THE EVENING 90 Tablet 1 isosorbide mononitrate (IMDUR) 60 mg Extended Release 24 hour tablet TAKE ON E TABLET BY MOUTH 2 TIMES A DAY (Patient taking differently: daily) 60 Tablet 5 loratadine (CLARITIN) 10 mg tablet Take 1 Tab by mouth daily. (Patient not t aking: No sig reported) 30 Tablet 5 phenytoin sodium (DILANTIN EXTENDED) 100 mg extended [...] am & pm prn 1 Package 0 ASPIRIN EC 81 mg Oral TbEC Take 81 mg by mouth daily. MULTIVITAMIN PO Take 1 Tab by mouth daily with lunch. BETIMOL 0.5 % OP Drop Administer 1 Drop in both eyes 2 times daily. Current Facility-Administered Medications Medication Dose Route Frequency Provider Last Rate Last Dose betamethasone acetate & sod phos (CELESTONE SOLUSPAN) 6 mg/mL injection 12 mg 12 mg Intra-arTICular ONCE Jona Doran APRN betamethasone acetate & sod phos (CELESTONE SOLUSPAN) 6 mg/mL injection 12 mg 12 mg Intra-arTICular ONCE Jona Doran APRN Objective: BP (!) 84/51 | Pulse 94 | Temp 97.5 F (36.4 C) (Tympanic) | Resp 20 | Ht 5' 6" (1.676 m) | Wt 67 kg (147 lb 12.8 oz) | BMI 23.86 kg/m General appearance: alert, in no distress Skin: coccygeal ulcer larger with slough; right buttock ulcer smaller and left b uttock ulcer larger both with slough. Surrounding skin pink. Hospital Encounter on 08/13/17 (from the past 336 hour(s)) XR KNEE 3 VW RIGHT Collection Time: 08/13/17 3:00 PM Narrative AP, oblique and lateral radiographs of the right knee 08/13/2017 3:00 PM HISTORY: 66 years Male presents with right knee pain COMPARISON: July 23, 2017, October 19, 2012 FINDINGS: There is no fracture or dislocation. There is mild tricompartment arthrosis. There are vascular clips in the medial leg. The extensor mechanism is intact. There is no joint effusion. Impression IMPRESSION: Mild tricompartment arthrosis *Note: Due to a large number of results and/or encounters for the requested time period, some results have not been displayed. A complete set of results can be found in Results Review. Assessment: Stage 3 decubitus ulcer. Patient will need a low air loss mattress due to the u lcers and his underlying medical condition. Plan: No orders of the defined types were placed in this encounter. Wound management discussed with Wound Care nurse, see detailed note. Instruction provided by Wound Care Nurse Staff. Follow up appointment given. Ulcer base was agitated with curette to remove biofilm or slough. Patient raheel rated procedure well. documented in this encounter Plan of Treatment Not on filedocumented as of this encounter Visit Diagnoses Not on filedocumented in this encounter Additional Health Concerns Assessment Noted Time A Hypertension Plan of Care has been documented for t he patient 02/12/2017 12:54 PM CDT documented as of this encounter
--- OUTSIDE RECORDS SUMMARY | 2020-03-24 13:57 | XMS REPORT | Encounter Summary ---
Author Author [facility] Organization [facility] Address Unknown Phone Unavailable Care Team Providers Care Ironer Hand Name Role Phone Claus Couch MD PCP Reason for Visit * Auth/Cert Referred By Contact Referred To Contact Status Reason Specialty Diagnoses / Procedures [facility] [place] [id number] [place] [address] Home Health Encounter Details Care Team Description Date Type Department Shahram Dyson Physical Therapist PT - MISSED VISIT NO TRAVEL 08/12/2017 [facility] [address] [place] [address] Social History Date Tobacco Use [...] home safety Problem: Scheduled Description: Home Instruct patient and Safety caregiver as needed in home and fall safety precautions through the Fall Prevention Program. PT establish or upgrade Problem: Scheduled home program PT Description: Establish Home exercise program for or Upgrade generalized LE Home strengthening. Program Pt gait training Problem: Scheduled Description: PT Gait Evaluate and instruct Training patient and caregiver in safe gait training on all surfaces including step/ramp training as needed in home or to exit home, full wt-bearing and using a 2WW. PT transfer training Problem: Scheduled Description: PT Evaluate and instruct Transfer patient/caregiver in safe Training transfer training using appropriate body mechanics, full weight bearing, and necessary equipment. documented in this encounter
--- OUTSIDE RECORDS SUMMARY | 2020-03-24 13:57 | XMS REPORT | Encounter Summary ---
Author Author [facility] Organization [facility] Address Unknown Phone Unavailable Care Team Providers Care Neurology Stroke Physician Name Role Phone Claus Couch MD PCP Reason for Visit * Reason Comments Medication Refill pt has gotten percocet 08/[address] Peña, duragesi [address] Hartman and he is not due for his oxycontin for a weekk. per Dr. Couch, CANCEL the scripts he just gave patient for ox ycontin and percocet. Encounter Details Care Team Description Date Type Department Claus Couch MD [address] [place] [address] 08/13/2017 Refill [facility] [place] [address] [place] [address] Social History Date Tobacco Use [...]
--- OUTSIDE RECORDS SUMMARY | 2020-03-24 13:57 | XMS REPORT | Encounter Summary ---
Author Author [facility] Organization [facility] Address Unknown Phone Unavailable Care Team Providers Care Hydro Plant Site Manager Name Role Phone Claus Couch MD PCP Encounter Details Care Team Description Date Type Department Claus Couch MD [address] [place] [address] 08/13/2017 [facility] rvices Encounter [address] [address] Social History Date Tobacco Use [...] Tablet 5 tablet mouth daily at bedtime. 08/13/2017 08/23/2017 oxyCODONE (OxyCONTIN) 20 Take 1 Tablet 60 Tablet 0 mg Controlled Release 12 (20 mg) by hour crush resistant mouth every tablet 12 hours. 08/13/2017 09/09/2017 oxyCODONE-acetaminophen TAKE 2 30 Tablet [...] (FLONASE) 50 Administer 2 16 Gram mcg/spray [place], Sprays in Suspension each nostril daily. 07/07/2017 [...] mouth daily 145 mg tablet with supper. 05/18/2017 08/23/2017 ondansetron (ZOFRAN ODT) Place 1 8 Tablet 1 4 mg Tablet, Rapid Tablet (4 mg) Dissolve under tongue every 6 hours as needed for Nausea/Emesis . 04/09/2017 10/20/2017 simvastatin (ZOCOR) 40 mg TAKE [...] Diag nosis XR KNEE 3 VW RIGHT Routine 08/13/2017 Acute pain of right knee 3:00 PM CDT documented in this encounter Results * XR KNEE 3 VW RIGHT (08/13/2017 3:00 PM CDT) Specimen Impressions Performed At IMPRESSION: INTERFACE SYSTEM Mild tricompartment arthrosis Narrative Performed At AP, oblique and lateral radiographs of the right knee 08/13/2017 3:00 INTERFACE SYSTEM PM HISTORY: 66 years Male presents with ri ght knee pain COMPARISON: July 23, 2017, 2011 FINDINGS: There is no fracture or dislocation. There is mild tricompartment arthrosis. There are vascular clips i n the medial leg. The extensor mechanism is intact. There is no join t effusion. Procedure Note Interface, [facility] Incoming Radiology Results - 08/13/2017 3:10 PM CDT AP, oblique and lateral radiographs of the right knee 08/13/2017 3:00 PM HISTORY: 66 years Male presents with right knee pain COMPARISON: July 23, 2017, October 19, 2012 FINDINGS: There is no fracture or dislocation. There is mild tricompartment arthrosis. There are vascular clips in the medial leg. The extensor mechanism is intact. There is no joint effusion. IMPRESSION IMPRESSION: Mild tricompartment arthrosis Performing Organization Address City/State/Zipcode Ph one Number INTERFACE SYSTEM INTERFACE SYSTEM Refer to clinic/hospital department documented in this encounter Visit Diagnoses Diagnosis Acute pain of right knee documented in this encounter Additional Health Concerns Assessment Noted Time A Hypertension Plan of Care has been documented for t pati patient 02/12/2017 12:54 PM CDT documented as of this encounter
--- OUTSIDE RECORDS SUMMARY | 2020-03-24 13:57 | XMS REPORT | Encounter Summary ---
Author Author [facility] Organization [facility] Address Unknown Phone Unavailable Care Team Providers Care Pharmacist Technician Name Role Phone Claus Couch MD PCP Encounter Details Care Team Description Date Type Department Mary Zhou MD NO ADDRESS ON FILE 08/19/2017 Hospital [facility] ort Encounter [facility] [address] [place] [address] Social History Date Tobacco Use [...] Signs Reading Time Taken Comments Vital Sign 112/58 08/19/2017 1:30 PM CDT Blood Pressure 97 08/19/2017 1:30 PM CDT Pulse 36.1 C (97 F) 08/19/2017 1:30 PM CDT Temperature 20 08/19/2017 1:30 PM CDT Respiratory Rate - - Oxygen Saturation - - Inhaled Oxygen Concentration 67.7 kg (149 lb 3.2 oz) 08/19/2017 1:30 PM CDT Weight 167.6 cm (5' 6") 08/19/2017 1:30 PM CDT Height 24.08 08/19/2017 1:30 PM CDT Body Mass Index documented in [...] Tablet 5 tablet mouth daily at bedtime. 08/19/2017 09/02/2017 fluconazole (DIFLUCAN) Take 1 Tablet 14 Tablet 0 200 mg tablet (200 mg) by mouth daily for 14 days. 08/13/2017 08/23/2017 oxyCODONE (OxyCONTIN) 20 Take 1 [...] (FLONASE) 50 Administer 2 16 Gram mcg/spray [place], Sprays in Suspension each nostril daily. 07/07/2017 [...] Progress Notes * Mary Zhou MD - 08/21/2017 3:41 PM CDT Subjective: Patient no new complaints. Current Outpatient Prescriptions Medication Sig Dispense Refill fluconazole (DIFLUCAN) 200 mg tablet Take 1 Tablet (200 mg) by mouth daily f or 14 days. 14 Tablet 0 oxyCODONE (OxyCONTIN) 20 mg Controlled Release 12 hour crush resistant table t Take 1 Tablet (20 mg) by mouth every 12 hours. 60 Tablet 0 oxyCODONE-acetaminophen (PERCOCET) 10-325 mg Tablet [...] 120 Tablet 3 fluticasone (FLONASE) 50 mcg/spray [place], Suspension Administer 2 Sprays in each nostril [...] ONE CAPSULE BY MOUTH EVERY DAY 30 MO NUTES AFTER SUPPER 30 Capsule 11 fenofibrate [...] (Patient taking differently: daily) 60 Tablet 5 phenytoin sodium (DILANTIN EXTENDED) 100 [...] Drop in both eyes 2 times daily. loratadine (CLARITIN) 10 mg tablet Take 1 [...] Intra-arTICular ONCE Jona Doran APRN Objective: BP 112/58 (BP Location: Left arm, Patient Position (BP): Sitting) | Pulse 97 | Temp 97 F (36.1 C) (Tympanic) | Resp 20 | Ht 5' 6" (1.676 m) | Wt 67.7 kg (149 lb 3.2 oz) | BMI 24.08 kg/m General appearance: alert, in no distress Skin: three obvious ulcerations, one on coccyx, and one on each side of the top gluteal skin. Some slough noted. Hospital Encounter on 08/13/17 (from the past [...] be found in Results Review. Assessment: Stage III decubitus ulcer, no obvious infection. Plan: No orders of the defined types were placed in this encounter. Wound management discussed with Wound Care nurse, see detailed note. Instruction provided by Wound Care Nurse Staff. Follow up appointment given. Ulcer base was agitated with curette to remove biofilm or slough. Patient vani erated procedure well. * Nuris Sharma RN - 08/19/2017 1:30 PM CDT WOUND CARE TREATMENT NOTE [id number] Patient Name: Oliverio Dalton : 1950 Visit # 2 Date: 08/19/17 Charges Time In: 1330 Time Out: 1400 Total Time: 30 minutes Medical Diagnosis: Patient [...] ulcer of coccygeal region, stage 3 L89.153 Treatment Diagnosis: shallow stage 3 pressure ulcer coccyx, shallow moisture/fri ction related ulceration right medial gluteal fold, moisture/friction related ir ritation left medial gluteal fold Subjective reports coccyx gluteal area is sore and painful Problem List diabetes wound(s) Alteration in skin integrity Alternation in comfort Potential for/or infection Fall Risk Objective See Doc Flow Sheets for wound measurements and information.Gluteal/coccyx/scaral area is reddened and moist. Patient reports they have a hard time keeping dress ing on. They had used woody antifungal cream to area when dressings were off unti l they ran out of it. Areas cleansed with soap and water, 2.5% lidocaine/priloca ine cream applied to areas. Dr. zhou here to evaluate and plan of care discusse d, ulcerations debrided by dr. zhou with #3 curette. Dressed with light packing of maxorb ex ag covered with mepilex ag and secured with medipore tape. Right Pulse Right Edema Left Pulse Left Edema Assessment Short Term Goals:progressing, previous open area at top of coccyx/loser sacral a sue is closed. Education Instructed on plan of care and understanding verbalized Plan Dressing changes every 3 days, cleanse with soap and water, maxorb ex ag lightly packed in ulcerations, cover with 1 piece of mepilex ag, secure with medipore t ape, if dressing comes off may replace once a day. If unable to keep dresssings on use triad twice a day to ulcerations. (or may us e woody antifungal barrier cream) Try to increase time laying on sides, do not slouch down in recliner, off load p ressure, continue to use waffle cushion in chairs. Comments: Return to wound clinic in 1 week WednesdayAugust 24 at 1 Contact Information [facility] [address] [place] [address] Phone - Please leave a message documented in this encounter Plan of Treatment Not on filedocumented as of this encounter Visit Diagnoses Not on filedocumented in this encounter Additional Health Concerns Assessment Noted Time A Hypertension Plan of Care has been documented for t pati patient 02/12/2017 12:54 PM CDT documented as of this encounter
--- OUTSIDE RECORDS SUMMARY | 2020-03-24 13:57 | XMS REPORT | Encounter Summary ---
Author Author [facility] Organization [facility] Address Unknown Phone Unavailable Care Team Providers Care Paradichlorobenzene Machine Operator Name Role Phone Claus Couch MD PCP Reason for Visit * Auth/Cert Referred By Contact Referred To Contact Status Reason Specialty Diagnoses / Procedures [facility] Health [id number] [place] [address] Home Health Encounter Details Care Team Description Date Type Department Marissa Pitts RN SN - HOME VISIT 08/16/2017 Home Care Visit [facility] [address] [place] [address] Social History Date Tobacco Use [...] Signs Reading Time Taken Comments Vital Sign 90/56 08/16/2017 2:30 PM CDT Blood Pressure - - Pulse - - Temperature 20 08/16/2017 2:30 PM CDT Respiratory Rate 95% 08/16/2017 2:30 PM CDT Oxygen Saturation - - [...] 1 problem intervention scheduled/documented in this visit Wound Management Presence 07/16/2017 Disciplines: of Snf Stage[I], [II], [III], [IV] pressure ulcer Active - 1 problem intervention scheduled/documented in this visit Learning/Teaching Needs - Learning/t 07/16/2017 Pressure Ulcer eaching Disciplines: needs re: Snf prevention and care of pressure ulcer Active - 1 problem intervention scheduled/documented in this visit Medications Management 07/09/2017 Disciplines: of home Snf medication s Active - 1 problem intervention scheduled/documented in this visit Physical Discomfort Alteration 07/09/2017 Disciplines: in comfort Snf Active - 1 problem intervention scheduled/documented in this visit Pulse Oximetry Skilled 07/09/2017 Disciplines: assessment Snf and monitoring of O2 saturation s. Active - 1 problem intervention scheduled/documented in this visit Skilled Observation and Skilled 07/09/2017 Assessment nursing Disciplines: observatio Snf n and assessment . Variance Visit Notes Intervention Associated Status Problem/Go al Skilled assessment wound Problem: Completed Description: Wound Assess and document wound Management location, size of visible granulation tissue or epithelialization, necrotic tissue, s/s of infection. Assess and document exudate volume, color, consistency, and odor. Evaluate the effectiveness of the current treatment regimen and notify physician for the need for changes in the plan of care. Instruct prevention of Problem: Completed pressure ulcers Learning/T Description: eaching Teach patient/caregiver Needs - in methods to prevent Pressure pressure ulcers related Ulcer to mobility, positioning, hygiene, skin care. Teach characteristics of beginning stage (Stage 1). Instruct Patient and Caregiver in the use of pressure relieving devices/strategies: moisture barrier. .Reconciled home medications with hospital discharge medication [...]
--- OUTSIDE RECORDS SUMMARY | 2020-03-24 13:57 | XMS REPORT | Encounter Summary ---
Author Author [facility] Organization [facility] Address Unknown Phone Unavailable Care Team Providers Care Discharging Machine Operator Name Role Phone Claus Couch MD PCP Reason for Visit * Reason Comments Medication Refill Encounter Details Care Team Description Date Type Department Claus Couch MD [address] [place] [address] 08/23/2017 Refill [facility] Prim[facility] y Care [place] [address] [place] [address] Social History Date Tobacco Use [...]
--- OUTSIDE RECORDS SUMMARY | 2020-03-24 13:57 | XMS REPORT | Encounter Summary ---
Author Author [facility] Organization [facility] Address Unknown Phone Unavailable Care Team Providers Care Leather Sponger Name Role Phone Claus Couch MD PCP Reason for Visit * Auth/Cert Referred By Contact Referred To Contact Status Reason Specialty Diagnoses / Procedures [facility] [address] [place] [address] Home Health Encounter Details Care Team Description Date Type Department Shahram Dyson Physical Therapist PT - MISSED VISIT NO TRAVEL 08/20/2017 [facility] [address] [place] [address] Social History Date Tobacco Use [...]
--- OUTSIDE RECORDS SUMMARY | 2020-03-24 13:57 | XMS REPORT | Encounter Summary ---
Author Author [facility] Organization [facility] Address Unknown Phone Unavailable Care Team Providers Care Ornament Setter Name Role Phone Claus Couch MD PCP Reason for Visit * Auth/Cert Referred By Contact Referred To Contact Status Reason Specialty Diagnoses / Procedures [facility] [address] [place] [address] Home Health Encounter Details Care Team Description Date Type Department Shahram Dyson Physical Therapist PT - MISSED VISIT NO TRAVEL 08/05/2017 [facility] [address] [place] [address] Social History Date Tobacco Use [...]
--- OUTSIDE RECORDS SUMMARY | 2020-03-24 13:57 | XMS REPORT | Encounter Summary ---
Author Author [facility] Organization [facility] Address Unknown Phone Unavailable Care Team Providers Care Washer Operator Name Role Phone Claus Couch MD PCP Reason for Visit * Reason Comments Medication Refill Encounter Details Care Team Description Date Type Department Claus Couch MD [address] [place] [address] 08/23/2017 Refill [facility] Primar y Care [place] [address] [place] [address] Social History Date [...]
--- OUTSIDE RECORDS SUMMARY | 2020-03-24 13:57 | XMS REPORT | Encounter Summary ---
Author Author [facility] Organization [facility] Address Unknown Phone Unavailable Care Team Providers Care Websphere Portal Developer Name Role Phone Claus Couch MD PCP Reason for Visit * Reason Comments Follow Up 1 month fu Knee Pain knee cap on the right side pain X 2 weeks Encounter Details Care Team Description Date Type Department Claus Couch MD [address] [place] [address] Acute pain of right knee (Primary Dx); Impacted cerumen of left ear; Seizure; Bipolar disorder, unspecified; Type 2 diabetes mellitus with diabetic neuropathy, without long-term current use of insulin 08/13/2017 Office Visit [facility] [address] [place] [address] Social History Date Tobacco Use Types Packs/Day Years Used Quit: 03/08/1995 Current Every Day Smoker Cigarettes 1 40 Smokeless Tobacco: Never Used Tobacco Cessation: [...] Signs Reading Time Taken Comments Vital Sign 130/72 08/13/2017 2:04 PM CDT Blood Pressure - - Pulse 36.3 C (97.3 F) 08/13/2017 2:04 PM CDT Temperature - - Respiratory Rate - - Oxygen Saturation - - Inhaled Oxygen Concentration 68.9 kg (152 lb) 08/13/2017 2:04 PM CDT Weight 167.6 cm (5' 6") 08/13/2017 2:04 PM CDT Height 24.53 08/13/2017 2:04 PM CDT Body Mass Index documented in this encounter Progress Notes * Claus Couch MD - 08/16/2017 8:11 AM CDT Oliverio Dalton is a 66 y.o. male History of Present Illness Oliverio Dalton is a 66 y.o. male presents with: Follow Up: 1 month fu has been doing a little better still with pain in the hips Knee Pain: knee cap on the right side pain X 2 weeks denies any falls Knee Pain Pertinent negatives include no chest pain and no abdominal pain. Review of Systems Review of Systems Constitutional: Positive for activity change. Negative for appetite change, chil ls, fatigue and fever. HENT: Negative for congestion, facial swelling, hearing loss, rhinorrhea and sne ezing. Eyes: Negative for discharge and itching. Respiratory: Negative for apnea, choking and chest tightness. Cardiovascular: Negative for chest pain and leg swelling. Gastrointestinal: Negative for abdominal distention, abdominal pain, diarrhea an d vomiting. Genitourinary: Negative for difficulty urinating, flank pain and hematuria. Musculoskeletal: Positive for joint swelling and myalgias. Negative for back darinel n. Skin: Negative for color change. Neurological: Negative for dizziness, syncope, facial asymmetry and numbness. Psychiatric/Behavioral: Negative for agitation and behavioral problems. Physical Exam Blood pressure 130/72, temperature 97.3 F (36.3 C), temperature source Tymp anic, height 5' 6" (1.676 m), weight 68.9 kg (152 lb). Physical Exam Constitutional: He appears well-developed and well-nourished. HENT: Head: Normocephalic and atraumatic. Right Ear: External ear normal. No foreign bodies. No middle ear effusion. Left Ear: External ear normal. A foreign body is present. Nose: Nose normal. Mouth/Throat: Oropharynx is clear and moist. Eyes: Conjunctivae and EOM are normal. Pupils are equal, round, and reactive to light. Neck: Normal range of motion. Neck supple. Cardiovascular: Normal rate, regular rhythm, normal heart sounds and intact dist al pulses. Pulmonary/Chest: Effort normal and breath sounds normal. Abdominal: Soft. Bowel sounds are normal. Musculoskeletal: Right knee: He exhibits decreased range of motion. Tenderness found. BLOOD PRESSURE BP Readings from Last 3 Encounters: 08/13/17 130/72 08/05/17 100/56 07/30/17 98/84 BMI PLAN OF CARE Normal BMI ranges: 18-64 yrs: > or = 18.5 and < 25 65 yrs and older: > or = 23 and < 30 Body mass index is 24.53 kg/m. BMI within normal limits ASSESSMENT: Encounter Diagnoses Name Primary? Acute pain of right knee Yes Impacted cerumen of left ear Seizure Bipolar disorder, unspecified Type 2 diabetes mellitus with diabetic neuropathy, without long-term current use of insulin PLAN: Orders Placed This Encounter XR KNEE 3 VW RIGHT INFLUENZA VACCINE HIGH DOSE 65+ YRS IM CBC with DIFFERENTIAL (FAVORITES) CMP (FAVORITES) LIPID PANEL (FAVORITES) MICROALBUMIN/CREATININE RATIO, RANDOM UR (FAVORITES) HEMOGLOBIN A1C (FAVORITES) [address] - [place] REMOVE CERUMEN EARWAX oxyCODONE (OxyCONTIN) 20 mg Controlled Release 12 hour crush resistant table t oxyCODONE-acetaminophen (PERCOCET) 10-325 mg Tablet Cerumen Removal Procedure Note: Subjective: Patient presents with hearing loss of left ear. Ear examination: Inspection of left ear: debris in canal Irrigation of left ear was performed using tap water. A was used for flushing . After the procedure, examination of the canal(s) left ear revealed: no wax noted. Assessment: Acute cerumen impaction, left ear resolved Plan: as above documented in this encounter Plan of Treatment Not on filedocumented as of this encounter Results * HEMOGLOBIN A1C (09/24/2017 8:56 AM BOTTLE WASHING MACHINE OPERATOR) HEMOGLOBIN A1C 5.0 4.8 - 5.9 % [facility] [place] EST. AVG 97 mg/dL [facility] GLUCOSE, A1C [facility] [place] Specimen Blood Performing Organization Address City/State/Zipcode Ph one Number [facility] CLIA# [id number] [place], [place] [address] - [facility] [address] [place] [address] * LIPID PANEL (09/24/2017 8:56 AM BOTTLE WASHING MACHINE OPERATOR) CHOLESTEROL 139 <200 mg/dL [facility] [place] TRIGLYCERIDE 159 (H) <150 mg/dL [facility] [place] HDL 49 40 - 59 mg/dL [facility] [place] LDL CALCULATED 58 <100 mg/dL [facility] [place] NON-HDL 90 <130 mg/dL [facility] CHOLESTEROL [facility] [place] Specimen Blood Narrative Performed At TOTAL CHOLESTEROL mg/dL [facility] Desirable <200 [facility] - [facility] Borderline high 200-239 [place] High >=240 [...] Performing Organization Address City/State/Zipcode Ph one Number [facility] CLIA# [id number] [place] [address] [facility] [address] [place] [address] * COMPREHENSIVE METABOLIC PANEL (09/24/2017 8:56 AM BOTTLE WASHING MACHINE OPERATOR) SODIUM 134 (L) 136 - 145 mmol/L [facility] [place] POTASSIUM 4.4 3.5 - 5.1 mmol/L [facility] [place] CHLORIDE 95 (L) 98 - 107 mmol/L [facility] [place] CO2 24 22 - 29 mmol/L [facility] CALCIUM 9.4 8.8 - 10.2 mg/dL [facility] [place] BUN 13 8 - 23 mg/dL [facility] [place] CREATININE 0.56 (L) 0.67 - 1.17 mg/dL [facility] [place] GLUCOSE 228 (H) 70 - 100 mg/dL [facility] TOTAL PROTEIN 6.9 6.6 - 8.7 g/dL [facility] ALBUMIN 3.6 3.5 - 5.2 g/dL [facility] [place] BILIRUBIN TOTAL 0.2 <=1.2 mg/dL [facility] [place] ALKALINE 131 (H) 40 - 129 U/L [facility] PHOSPHATASE [facility] [place] AST 18 <=41 U/L [facility] ALT 11 10 - 50 U/L [facility] GFR >60 >=60 mL/min/1.73 sq [facility] Comment: meter LABORATORY eGFR has not been validated [facility] for use in the elderly [...] result. GFR, >60 >=60 mL/min/1.73 sq [facility] [place] meter [facility] - [place] ANION GAP 15 4 - 20 mmol/L [facility] Specimen Blood Performing Organization Address City/State/[facility] Ph one Number [facility] CLIA# [id number] [place] [address] [place] [address] [facility] * CBC WITH DIFFERENTIAL (09/24/2017 8:56 AM BOTTLE WASHING MACHINE OPERATOR) WBC 10.8 3.6 - 11.1 K/uL [facility] [place] RBC 3.98 (L) 4.49 - 5.52 M/uL [facility] [place] HEMOGLOBIN 10.4 (L) 13.3 - 16.5 g/dL [facility] [place] HEMATOCRIT 32.6 (L) 40.7 - 48.9 % [facility] [place] MCV 81.9 (L) 82.7 - 97.1 fL [facility] [place] MCH 26.1 (L) 27.1 - 32.3 pg [facility] [place] MCHC 31.9 31.3 - 34.9 g/dL [facility] [place] RDW 16.9 (H) 11.5 - 14.7 % [facility] [place] RDW-STDEV 50.0 (H) 37.2 - 47.6 fL [facility] [place] PLATELETS 621 (H) 136 - 352 K/uL [facility] [place] MPV 7.8 (L) 8.6 - 11.8 fL [facility] [place] NEUTROPHILS 78 [...] K/uL [facility] ABSOLUTE [facility] [place] BASOPHILS 0.03 0.00 - 0.10 K/uL [facility] [place] IMMATURE 0.05 0.00 - 0.09 K/uL [facility] GRANULOCYTES [facility]OL[facility] [place] Specimen Blood Performing Organization Address City/State/[facility] Centerc[facility] Ph one Number [facility] CLIA# [id number] [place] [address] [place] [address] [place] [address] * XR KNEE 3 VW RIGHT (08/13/2017 3:00 PM CDT) Specimen Impressions Performed At IMPRESSION: INTERFACE SYSTEM Mild tricompartment arthrosis Narrative Performed At AP, oblique and lateral radiographs of the right knee 08/13/2017 3:00 INTERFACE SYSTEM PM HISTORY: 66 years Male presents with ri ght knee pain COMPARISON: July 23, 2017, Frank river[facility] 2011 FINDINGS: There is no fracture or dislocation. There is mild tricompartment arthrosis. There are vascular clips i n the medial leg. The extensor mechanism is intact. There is no join t effusion. Procedure Note Interface, Bong Aok Incoming Radiology Results - 08/13/2017 3:10 [...] Diagnoses Diagnosis Acute pain of right knee - Primary Impacted cerumen of left ear Impacted cerumen Seizure Other convulsions Bipolar disorder, unspecified Type 2 diabetes mellitus with diabetic neuropathy, without long-term current use of insulin documented in this encounter Additional Health Concerns Assessment Noted Time A Hypertension Plan of Care has been documented for t pati patient 02/12/2017 12:54 PM CDT documented as of this encounter
--- OUTSIDE RECORDS SUMMARY | 2020-03-24 13:57 | XMS REPORT | Encounter Summary ---
Author Author [facility] Organization [facility] Address Unknown Phone Unavailable Care Team Providers Care Covering Machine Operator Helper Name Role Phone Claus Couch MD PCP Encounter Details Care Team Description Date Type Department Mary Zhou MD NO ADDRESS ON FILE 08/19/2017 Orders Only [facility] [address] [address] Social History Date Tobacco Use [...]
--- OUTSIDE RECORDS SUMMARY | 2020-03-24 13:57 | XMS REPORT | Encounter Summary ---
Author Author [facility] Organization [facility] Address Unknown Phone Unavailable Care Team Providers Care Silk Spooler Name Role Phone Claus Couch MD PCP Reason for Visit * Auth/Cert Referred By Contact Referred To Contact Status Reason Specialty Diagnoses / Procedures [facility] Health [place] [address] [place] [address] Home Health Encounter Details Care Team Description Date Type Department Marissa Pitts RN SN - HOME VISIT 08/23/2017 Home Care Visit [facility] [address] [place] [address] Social History Date Tobacco Use [...] Signs Reading Time Taken Comments Vital Sign 122/60 08/23/2017 10:30 AM CDT Blood Pressure 100 08/23/2017 10:30 AM CDT Pulse - - Temperature 20 08/23/2017 10:30 AM CDT Respiratory Rate 94% 08/23/2017 10:30 AM CDT Oxygen Saturation - - Inhaled [...] - SN - HOME VISIT Discipline - Detention Status Goals Interventions Problem Descriptio Start Date n Active - 1 problem intervention scheduled/documented in this visit Patient Goals Record 07/09/2017 Disciplines: patient Detention identified goals. Evaluate progress toward acheivemen t of patient goals, including the measurable outcomes identified by the [facility] agency. Active - 2 problem interventions scheduled/documented in this visit Wound Management Presence 07/16/2017 Disciplines: of Detention Stage[I], [II], [III], [IV] pressure ulcer Active - 1 problem intervention scheduled/documented in this visit Physical Discomfort Alteration 07/09/2017 Disciplines: in comfort Detention Active - 1 problem intervention scheduled/documented in this visit Skilled Observation and Skilled 07/09/2017 Assessment nursing Disciplines: observatio Detention n and assessment . Variance Visit Notes Intervention Associated Status Problem/Go al PATIENT GOALS Problem: Completed Description: Patient Evaluate patient progress Goals towards acheivement of patient identified goal(s). Instruct positioning Problem: Completed Description: Wound Instruct Patient and Management Caregiver in proper positioning strategies: Side lying and change every two hours. Skilled assessment wound Problem: Completed Description: Wound [...] Home Health Visit - Actions and Narratives Caregivers report that pt. will not sta y on side and is constantly in same position, despite their efforts to reposition pt. documented in this encounter
--- OUTSIDE RECORDS SUMMARY | 2020-03-24 13:57 | XMS REPORT | Encounter Summary ---
Author Author [facility] Organization [facility] Address Unknown Phone Unavailable Care Team Providers Care Machine Bunch Maker Name Role Phone Claus Couch MD PCP Reason for Visit * Auth/Cert Referred By Contact Referred To Contact Status Reason Specialty Diagnoses / Procedures [facility] [place] [place] [address] Home Health Encounter Details Care Team Description Date Type Department Shahram Dyson Physical Therapist PT - MISSED VISIT NO TRAVEL 08/10/2017 [facility] [address] [place] [address] Social History Date Tobacco Use [...]
[2020-03-24 13:58] LABS: INR 1.1 (0.8-1.4); PROTHROMBIN TIME PATIENT 15.1 SEC (12.2-14.7)
--- OUTSIDE RECORDS SUMMARY | 2020-03-24 13:58 | XMS REPORT | Encounter Summary ---
Author Author [facility] Organization [facility] Address Unknown Phone Unavailable Care Team Providers Care Alum Plant Supervisor Name Role Phone Claus Couch MD PCP Reason for Visit * Reason Comments Hip Pain Reports that he missed the bed when he was turned to sit down. No obvious injury noted. Encounter Details Care Team Description Date Type Department Closed displaced fracture of greater trochanter of right femur, initial encounter (Primary Dx); Acute cystitis without hematuria; Urinary retention 07/23/2017 Emergency [facility] Emergency Department [address] [id number] Social History Date Tobacco Use Types Packs/Day [...] Signs Reading Time Taken Comments Vital Sign 110/49 07/23/2017 5:07 AM CDT Blood Pressure - - Pulse 36.7 C (98 F) 07/23/2017 5:07 AM CDT Temperature 16 07/23/2017 5:07 AM CDT Respiratory Rate 97% 07/23/2017 5:07 AM CDT Oxygen Saturation - - Inhaled Oxygen Concentration 68.9 kg (152 lb) 07/23/2017 3:34 AM CDT Weight 167.6 cm (5' 6") 07/23/2017 3:34 AM CDT Height 24.53 07/23/2017 3:34 AM CDT Body Mass Index documented in this encounter Medications at Time of Discharge Start Date End Date Medication Sig Dispensed Refills 07/21/2017 gabapentin (NEURONTIN) Take 1 30 Capsule [...] 5 tablet mouth daily at bedtime. 07/21/2017 01/19/2018 traZODone (DESYREL) 50 mg Take 1 Tab by 30 Tablet 5 tablet mouth daily at bedtime.. 07/21/2017 01/08/2018 temazepam (RESTORIL) 7.5 Take 1 30 Capsule 2 mg capsule Capsule (7.5 mg) by mouth nightly as needed for Insomnia. 07/21/2017 08/13/2017 oxyCODONE-acetaminophen TAKE 2 30 Tablet 0 (PERCOCET) 10-325 mg TABLETS EVERY Tablet 4 HOURS NEEDED FOR BREAKTHRU PAIN. 07/21/2017 08/13/2017 oxyCODONE (OxyCONTIN) 20 Take 1 Tablet 60 Tablet 0 mg Controlled Release 12 (20 mg) by hour crush resistant mouth every tablet 12 hours. 07/21/2017 10/20/2017 LORazepam (ATIVAN) 1 mg TAKE [...] (FLONASE) 50 Administer 2 16 Gram mcg/spray [place], Sprays in Suspension each nostril daily. 07/07/2017 [...] as of this encounter ED Notes * Kristina Keller RN - 07/23/2017 5:27 AM CDT [facility] EMS crew here. Report to [facility]. [facility] released. * Kristina Keller RN - 07/23/2017 5:08 AM CDT Consent for transfer has been signed. Waiting on EMS to arrive to transport pt to [facility]. * Kristina Keller RN - 07/23/2017 4:52 AM CDT Pt snoring at this time. Respirations even & unlabored. * Kristina Keller RN - 07/23/2017 4:41 AM CDT Attempted, with 2 staff, to get pt up to attempt to walk with instructions from JONNATHAN. Pt immediately pushing against staff & refuses to attempt to stand. * Kristina Keller RN - 07/23/2017 4:19 AM CDT Pt's female friend to desk to report that pt is stating that the pain medicine d idn't deaden his hip. * Kristina Keller RN - 07/23/2017 3:50 AM CDT Sybil DE SANTIAGO to room to visit with pt concerning xray/CT results. * Kristina Keller RN - 07/23/2017 3:32 AM CDT Pt to ER 5 from xray at this time. No obvious shortening or rotation of the rt lower extremity. DNV's intact. * Kristina Keller RN - 07/23/2017 3:13 AM CDT Pt taken directly to xray on arrival to the ER. * Sybil Henry APRN - 07/23/2017 3:12 AM CDT HISTORY OF PRESENT ILLNESS Oliverio Dalton, a 66 y.o. male presents to the ED with a Chief Complaint of Hi p Pain Subjective HPI Comments: Was transferring to bed Went to sit on bed and fell to floor, landing on right hip Fell to the floor, pain right hip since Was unable to stand Called ems Pain right hip, no other injuries or complaints Did not hit head no loc History provided by: The patient Arrived by: EMS Arrived from: Home REVIEW OF SYSTEMS Review of Systems Constitutional: Negative for chills and fever. Respiratory: Negative for cough and shortness of breath. Cardiovascular: Negative for chest pain. Gastrointestinal: Negative for abdominal pain, diarrhea, nausea and vomiting. Genitourinary: Positive for difficulty urinating. Negative for dysuria. Musculoskeletal: Negative for back pain, neck pain and neck stiffness. PAST MEDICAL HISTORY REVIEWED MEDICAL: Patient has [...] has been smoking Cigarettes. He has a 40.00 pack-year smoking history. He has never used smokeless tobacco. He reports that he currently engag es in sexual activity and has had female partners. He reports that he does not d rink alcohol or use illicit drugs. No history on file. Social History Other Topics Concern Not on file PROBLEM LIST: Patient has Renal stone; Essential hypertension; Seizure; Hypertrophy of prostat e without urinary obstruction and other lower urinary tract symptoms (LUTS); Magdalena rogenic bladder; Unspecified glaucoma; Bipolar disorder, unspecified; Hyperlipid emia; Tubular adenoma; Status post laparoscopic appendectomy; Umbilical hernia w ithout mention of obstruction or gangrene; Bradycardia; Back pain; LFT elevation ; Osteoarthritis of right knee; Carpal tunnel syndrome; Diabetes mellitus; CAD ( coronary artery disease); COPD (chronic obstructive pulmonary disease); Seizure disorder; Depression; Suicidal behavior; Status post colonoscopy; Status post ri ght inguinal hernia repair; Ulcers of both lower legs, limited to breakdown of s kin; Cigarette dependence; Closed displaced fracture of middle phalanx of right little finger; Left hip pain; Hyponatremia; Frequent falls; Acute cystitis witho ut hematuria; Hyponatremia; Oral thrush; and Pressure ulcer of coccygeal region, stage 3 on his problem list. ALLERGIES Codeine; Doxycycline; Penicillins; Phenobarbital; Piperacillin-tazobactam; Septr a [sulfamethoxazole-trimethoprim]; Terazosin; and Valium [diazepam] HOME MEDICATIONS Patient's Home Medications Current Home Medications ASPIRIN EC 81 MG ORAL TBEC BETHANECHOL (URECHOLINE) 25 MG TABLET BETIMOL 0.5 % OP DROP BLOOD SUGAR DIAGNOSTIC (ACCU-CHEK ACTIVE TEST) MISC STRP CLOPIDOGREL (PLAVIX) 75 MG TABLET ESOMEPRAZOLE MAGNESIUM (NEXIUM) 10 MG SUSPENSION DELAYED RELEASE EZETIMIBE (ZETIA) 10 MG TABLET FENOFIBRATE NANOCRYSTALLIZED (TRICOR) 145 MG TABLET FLUOXETINE (PROZAC) 20 MG CAPSULE FLUTICASONE (FLONASE) 50 MCG/SPRAY SPRAY, SUSPENSION FLUTICASONE (FLOVENT HFA) 110 MCG/ACTUATION HFA AEROSOL INHALER GABAPENTIN (NEURONTIN) 300 MG CAPSULE GLIMEPIRIDE (AMARYL) 2 MG TABLET IBUPROFEN (MOTRIN) 200 MG TABLET ISOSORBIDE MONONITRATE (IMDUR) 60 MG EXTENDED RELEASE 24 HOUR TABLET LORATADINE (CLARITIN) 10 MG TABLET LORAZEPAM (ATIVAN) 1 MG TABLET MAGNESIUM OXIDE 250 MG ORAL TAB MULTIVITAMIN PO NICOTINE TRANSDERMAL NITROGLYCERIN (NITROSTAT) 0.4 MG TABLET, SUBLINGUAL OLANZAPINE (ZYPREXA) 2.5 MG TABLET OXYCODONE (OXYCONTIN) 20 MG CONTROLLED RELEASE 12 HOUR CRUSH RESISTANT TABLET OXYCODONE-ACETAMINOPHEN (PERCOCET) 10-325 MG TABLET PANTOPRAZOLE (PROTONIX) 40 MG TABLET, DELAYED RELEASE (E.C.) PHENYTOIN SODIUM (DILANTIN EXTENDED) 100 MG EXTENDED RELEASE CAPSULE PIOGLITAZONE (ACTOS) 30 MG TABLET POLYETHYLENE GLYCOL 3350 (MIRALAX) 17 GRAM/DOSE POWDER PROAIR HFA 90 MCG/ACTUATION INHALER RAMIPRIL (ALTACE) 10 MG CAPSULE SENNOSIDES ORAL SIMVASTATIN (ZOCOR) 40 MG TABLET TAMSULOSIN (FLOMAX) 0.4 MG CAPSULE TEMAZEPAM (RESTORIL) 7.5 MG CAPSULE TRAZODONE (DESYREL) 50 MG TABLET Medications Modified during this Encounter Medications Discontinued during this Encounter Objective PHYSICAL EXAM INITIAL VS BP: 121/61 (07/23/17 0334), Heart Rate: 99 bpm (07/23/17333), Resp: 16 (333), Temp: 98.5 F (36.9 C) (07/23/17333), Temp src: Temporal (333), SpO2: 96 % (07/23/17333), Height: 5' 6" (167.6 cm) (07/23/17333), W eight: 68.9 kg (152 lb) (07/23/17333), BMI (Calculated): 24.55 (07/23/17333) No LMP for male patient. Physical Exam Constitutional: He is oriented to person, place, and time. He appears well-devel oped and well-nourished. HENT: Head: Normocephalic and atraumatic. Nose: Nose normal. Mouth/Throat: Oropharynx is clear and moist. Eyes: Pupils are equal, round, and reactive to light. Neck: Normal range of motion. Neck supple. Cardiovascular: Normal rate, regular rhythm and intact distal pulses. Murmur heard. Pulmonary/Chest: Effort normal and breath sounds normal. No respiratory distress . Abdominal: Soft. Bowel sounds are normal. There is no tenderness. Musculoskeletal: He exhibits tenderness. He exhibits no edema. Right hip: He exhibits decreased range of motion, decreased strength and alejandra ny tenderness. He exhibits no swelling and no deformity. Right knee: He exhibits decreased range of motion. No tenderness found. Right ankle: Normal. Legs: Intolerant of internal and external rotation Lymphadenopathy: He has no cervical adenopathy. Neurological: He is alert and oriented to person, place, and time. Skin: Skin is warm and dry. Psychiatric: He has a normal mood and affect. His behavior is normal. DIAGNOSTICS LAB: Labs this ED Encounter CBC WITH DIFFERENTIAL - Abnormal Result Value RBC 3.30 (*) HEMOGLOBIN 8.2 (*) HEMATOCRIT 26.5 (*) MCV 80.3 (*) MCH 24.8 (*) MCHC 30.9 (*) RDW 16.9 (*) RDW-STDEV 49.1 (*) PLATELETS 645 (*) MPV 8.1 (*) NEUTROPHIL ABSOLUTE 7.20 (*) WBC 10.6 NEUTROPHILS 68 LYMPHOCYTES 23 MONOCYTES 8 EOSINOPHILS 1 BASOPHILS 0 IMMATURE GRANULOCYTES 1 LYMPHOCYTE ABSOLUTE 2.39 MONOCYTE ABSOLUTE 0.85 EOSINOPHIL ABSOLUTE 0.08 BASOPHILS ABSOLUTE 0.02 IMMATURE GRANULOCYTES ABSOLUTE 0.09 COMPREHENSIVE METABOLIC PANEL - Abnormal SODIUM 135 (*) CHLORIDE 96 (*) CREATININE 0.54 (*) GLUCOSE 167 (*) ALBUMIN 3.1 (*) ALKALINE PHOSPHATASE 140 (*) POTASSIUM 4.7 CO2 23 CALCIUM 9.2 BUN 16 TOTAL PROTEIN 6.8 BILIRUBIN TOTAL 0.2 AST 21 ALT 19 GFR >60 GFR, >60 ANION GAP 16 URINALYSIS WITH REFLEX CULTURE - Abnormal CLARITY UA Cloudy (*) LEUKOCYTE ESTERASE UA 3+ (*) PROTEIN UA Trace (*) WBC UA >100 (*) RBC UA 11-25 (*) WBC CLUMPS Present (*) COLOR UA Yellow SPECIFIC GRAVITY UA 1.007 PH UA 6.5 NITRITE UA Negative GLUCOSE UA Negative KETONES UA Negative UROBILINOGEN UA <2.0 BILIRUBIN UA Negative BLOOD UA Negative BACTERIA UA Negative EPITHELIAL CELLS, URINE 0-5 Narrative: Based on results, a urine culture has been reflexed. URINE CULTURE RADIOLOGY: XR HIP 2 OR 3 VIEWS RT (Results Pending) greater trochanter irregularity, no clear fracture XR FEMUR 2 VW RIGHT (Results Pending) nad, pending radiologist review CT HIP WO CONTRAST RIGHT (Results Pending) Per vrad IMPRESSION: 1. Acute right greater trochanteric fracture. 2. Severe bladder distention is incidentally noted. EKG: PROCEDURES Procedures MEDICAL DECISION MAKING AND PLAN OF CARE With the limited fracture pt should be able bear weight with pain mgmt Cannot tolerate ROM or weight bearing, concern for occult fx Unable to do MRI due to penile implant and hip Discussed with Dr Maloney, pts ortho on first hip Initially rec outpt eval today, pt would not tolerate this, do not feel I can d/c him home without orthopedic surgery eval first He rec transfer pt down for evaluation by on-call ortho Dr Hartman, accepting Did discuss code status with pt, pt is a DNR Pt does have urinary retention ( > 1000cc in bladder when catheter placed) and UTI, rocephin given for this Pain mgmt in ed MDM ED Course Medications Administered During the ED Stay from 07/23/2017 0312 to 07/23/2017 0 512 Date/Time Order Dose Route Action 07/23/2017 040 morphine 4 mg/mL injection 2 mg 2 mg IV Given 07/23/2017 040 ondansetron (ZOFRAN) 4 mg/2 mL injection 4 mg 4 mg IV Given 07/23/2017 0432 morphine 4 mg/mL injection 2 mg 2 mg IV Push . New Prescriptions for this Encounter LAST VS BP: 110/49 (07/23/17506), Heart Rate: 96 bpm (07/23/17506), Resp: 16 (506), Temp: 98 F (36.7 C) (07/23/17506), Temp src: Oral (07/23/17506 ), SpO2: 97 % (07/23/17506) CLINICAL IMPRESSION Final diagnoses: [S72.111A] Closed displaced fracture of greater trochanter of right femur, initi al encounter (Primary) [N30.00] Acute cystitis without hematuria [R33.9] Urinary retention DISPOSITION, EDUCATION AND MEDICATION RECONCILIATION Medications reconciled. See after visit summary for patient education on discha rged patients. ATTESTATION STATEMENTS documented in this encounter Plan of Treatment Not on filedocumented as of this encounter Procedures Comments Procedure Name Priority Date/Time Associated Diag nosis URINALYSIS WITH REFLEX Stat 07/23/2017 CULTURE 3:57 AM CDT URINE CULTURE Routine 07/23/2017 3:[address] HIP WO CONTRAST RIGHT Stat 07/23/2017 3:34 AM CDT CBC WITH DIFFERENTIAL Stat 07/23/2017 3:30 AM CDT COMPREHENSIVE METABOLIC Stat 07/23/2017 PANEL 3:30 AM CDT XR FEMUR 2 VW RIGHT Stat 07/23/2017 3:23 AM CDT XR HIP 2 OR 3 VIEWS RT Stat 07/23/2017 3:23 AM CDT documented in this encounter Results * URINE CULTURE (07/23/2017 3:57 AM CDT) Specimen Urine - Urine specimen obtained by clean catch procedure (specimen) Narrative Performed At [facility] See scanned report, performed by Zhanna Kaur. DEVANG ROMERO - [place] Performing Organization Address City/State/Zipcode Ph one Number [facility] CLIA# [id number] [place] [address] - [address] * URINALYSIS WITH REFLEX CULTURE (07/23/2017 3:57 AM CDT) COLOR UA Yellow Pale to dark yellow [facility] [place] CLARITY UA Cloudy (A) Clear [facility] - [facility] [place] SPECIFIC 1.007 1.003 - 1.035 [facility] GRAVITY UA LABORATORY SERVICES - [place] PH UA 6.5 5.0 - 8.0 [facility] - [facility] [place] LEUKOCYTE 3+ (A) Negative [facility] ESTERASE UA LABORATORY SERVICES - [facility] [place] NITRITE UA Negative Negative [facility] - [place] PROTEIN UA Trace (A) Negative [facility] Comment: LABORATORY For patients with [facility] - [facility] 'trace' results, vane [place] ordering a culture and sensitivity if clinically indicated. GLUCOSE UA Negative Negative [facility] - [place] KETONES UA Negative Negative [facility] - [facility] [place] UROBILINOGEN UA <2.0 <2.0 mg/dL [facility] - [place] BILIRUBIN UA Negative Negative [facility] [place] BLOOD UA Negative Negative [facility] - [facility] [place] WBC UA >100 (A) 0 - 2 /hpf [facility] [place] RBC UA 11-25 (A) 0 - 2 /hpf [facility] [place] BACTERIA UA Negative Negative /hpf [facility] - [place] EPITHELIAL 0-5 0 - 5 /hpf [facility] CELLS, URINE LABORATORY SERVICES - [facility] [place] WBC CLUMPS Present (A)Comment: 1025/lpf Absent [facility] - [facility] [place] Specimen Urine - Urine specimen obtained by clean catch procedure (specimen) Narrative Performed At Based on results, a urine culture has been reflexed. [facility] - [place] Performing Organization Address City/[facility] [place] [facility] Ph one Number [facility] CLIA# [id number] [place] [address] - [facility] [place] [address] [place] [address] * CT HIP WO CONTRAST RIGHT (07/23/2017 3:34 AM CDT) Specimen Impressions Performed At IMPRESSION: INTERFACE SYSTEM Acute nondisplaced fracture of the supe rior aspect greater trochanter which is probably related to an avulsio n injury from the piriformis. Note: This is difficult to visualize on plain films. Preliminary report given by [facility]. Narrative Performed At Procedure: CT HIP WO CONTRAST RIGHT INTERFACE SYST EM History: Injury,Fall Comparison: Plain films of the right hi p and pelvis dated 23 July 2017. Technique: Thin slice axial CT of the r ight hip. No contrast. Sagittal and coronal reformatted images were als o obtained and reviewed. Findings: BONES: There is an acute nondisplaced fracture involving the superior aspect of the greater trochanter which could be associated with an avulsion injury of the attaching pirifo rmis muscle. No other fracture. No dislocation. JOINT SPACES: The hip joint space is we ll maintained. SOFT TISSUES: Penile prosthesis is part ially visualized. Marked distention of the urinary bladder. Mode rate atheromatous disease. Mild subcutaneous edema about the right hip. Procedure Note Interface, [facility] Incoming Radiology Results - 07/23/2017 7:08 AM CDT Procedure: CT HIP WO CONTRAST RIGHT History: Injury,Fall Comparison: Plain films of the right hip and pelvis dated 23 July 2017. Technique: Thin slice axial CT of the right hip. No contrast. Sagittal and coronal reformatted images were also obtained and reviewed. Findings: BONES: There is an acute nondisplaced fracture involving the superior aspect of the greater trochanter which could be associated with an avulsion injury of the attaching piriformis muscle. No other fracture. No dislocation. JOINT SPACES: The hip joint space is well maintained. SOFT TISSUES: Penile prosthesis is partially visualized. Marked distention of the urinary bladder. Moderate atheromatous disease. Mild subcutaneous edema about the right hip. IMPRESSION IMPRESSION: Acute nondisplaced fracture of the superior aspect greater trochanter which is probably related to an avulsion injury from the piriformis. Note: This is difficult to visualize on plain films. Preliminary report given by [facility]. Performing Organization Address City/State/Zipcode Ph one Number INTERFACE SYSTEM INTERFACE SYSTEM Refer to clinic/hospital department * COMPREHENSIVE METABOLIC PANEL (07/23/2017 3:30 AM CDT) [facility] Signature SODIUM 135 (L) 136 - 145 mmol/L [facility] [place] POTASSIUM 4.7 3.5 - 5.1 mmol/L [facility] - [facility] [place] CHLORIDE 96 (L) 98 - 107 mmol/L [facility] - [place] CO2 23 22 - 29 mmol/L [facility] - [facility] [place] CALCIUM 9.2 8.8 - 10.2 mg/dL [facility] [place] BUN 16 8 - 23 mg/dL [facility] [place] CREATININE 0.54 (L) 0.67 - 1.17 mg/dL [facility] - [facility] [place] GLUCOSE 167 (H) 70 - 100 mg/dL [facility] - [facility] [place] TOTAL PROTEIN 6.8 6.6 - 8.7 g/dL [facility] - [place] ALBUMIN 3.1 (L) 3.5 - 5.2 g/dL [facility] [place] BILIRUBIN TOTAL 0.2 <=1.2 mg/dL [facility] - [facility] ALKALINE 140 (H) 40 - 129 U/L [facility] PHOSPHATASE LABORATORY SERVICES - [facility] [place] AST 21 <=41 U/L [facility] - [facility] ALT 19 10 - 50 U/L [facility] - [facility] [place] GFR >60 >=60 mL/min/1.73 sq [facility] Comment: meter LABORATORY eGFR has not been validated [facility] for use in the elderly [...] result. GFR, >60 >=60 mL/min/1.73 sq [facility] [place] meter LAB[facility]ATORY SERVICES - [facility] [place] ANION GAP 16 4 - 20 mmol/L [facility] - [facility] Specimen Blood Performing Organization Address City/State/[place] [facility] Centerc[facility]n Ph one Number [facility] CLIA# [id number] [place] [address] - [place] [address] [facility] * CBC WITH DIFFERENTIAL (07/23/2017 3:30 AM CDT) WBC 10.6 3.6 - 11.1 K/uL [facility] [place] RBC 3.30 (L) 4.49 - 5.52 M/uL [facility] [place] HEMOGLOBIN 8.2 (L) 13.3 - 16.5 g/dL [facility] [place] HEMATOCRIT 26.5 (L) 40.7 - 48.9 % [facility] [place] MCV 80.3 (L) 82.7 - 97.1 fL [facility] [place] MCH 24.8 (L) 27.1 - 32.3 pg [facility] [place] MCHC 30.9 (L) 31.3 - 34.9 g/dL [facility] [place] RDW 16.9 (H) 11.5 - 14.7 % [facility] [place] RDW-STDEV 49.1 (H) 37.2 - 47.6 fL [facility] [place] PLATELETS 645 (H) 136 - 352 K/uL [facility] [place] MPV 8.1 (L) 8.6 - 11.8 fL [facility] [place] NEUTROPHILS 68 44 - 74 % [facility] [...] K/uL [facility] [place] LYMPHOCYTE 2.39 0.69 - 3.61 K/uL [facility] [place] MONOCYTE 0.85 0.19 - 0.95 K/uL [facility] [place] EOSINOPHIL 0.08 0.00 - 0.44 K/uL [facility] [place] BASOPHILS 0.02 0.00 - 0.10 K/uL [facility] [place] IMMATURE 0.09 0.00 - 0.09 K/uL [facility] GRANULOCYTES [facility] ABSOLUTE [facility] - [place] Specimen Blood Performing Organization Address City/State/Zipcode Ph one Number [facility] CLIA# [id number] [place], [place] [address] - [place] [address] * XR FEMUR 2 VW RIGHT (07/23/2017 3:23 AM CDT) Specimen Impressions Performed At IMPRESSION: INTERFACE SYSTEM Subtle nondisplaced avulsion fracture o f the superior aspect greater trochanter. Narrative Performed At 2 VIEWS RIGHT FEMUR INTERFACE SYSTEM History: Pain Comparison: Plain films of the right hi p and CT of the right hip performed the same day. FINDINGS: BONES: Subtle avulsion fracture superio r aspect greater trochanter which is better seen on CT scan. No oth er fracture. No dislocation. JOINT SPACES: The hip joint space is we ll maintained. The knee joint space also appears well maintained. SOFT TISSUES: Multiple surgical clips a re seen along the medial aspect of the thigh related to vein graft harv est. Penile prosthesis. Procedure Note [place]ong [place] Incoming Radiology Results - 07/23/2017 8:07 AM CDT 2 VIEWS RIGHT FEMUR History: Pain Comparison: Plain films of the right hip and CT of the right hip performed the same day. FINDINGS: BONES: Subtle avulsion fracture superior aspect greater trochanter which is better seen on CT scan. No other fracture. No dislocation. JOINT SPACES: The hip joint space is well maintained. The knee joint space also appears well maintained. SOFT TISSUES: Multiple surgical clips are seen along the medial aspect of the thigh related to vein graft harvest. Penile prosthesis. IMPRESSION IMPRESSION: Subtle nondisplaced avulsion fracture of the superior aspect greater trochanter. Performing Organization Address City/State/[place] [facility] Cent[facility] Ph one Number INTERFACE SYSTEM INTERFACE SYSTEM Refer to clinic/hospital department * XR HIP 2 OR 3 VIEWS RT (07/23/2017 3:23 AM CDT) Specimen Impressions Performed At IMPRESSION: INTERFACE SYSTEM Subtle nondisplaced avulsion fracture i nvolving the superior aspect of the greater trochanter. Narrative Performed At AP VIEW PELVIS AND FROG LEG VIEW RIGHT HIP INTERFACE SYSTEM History: Fall Comparison: CT of the right hip perform ed the same day. FINDINGS: BONES: Very difficult to visualize frac ture involving the superior aspect right greater trochanter. This i s better appreciated on CT scan. Again noted is surgical fixation of intertrochanteric fracture of the left hip. No other fracture. No dislocation. HIP JOINT SPACES: Well maintained. SACROILIAC JOINT SPACES: Well maintaine d. PUBIC SYMPHYSIS: Well maintained. SOFT TISSUES: Penile prosthesis. Surgic al clips are seen within the right groin and proximal thigh. Surgica l clips are also present within the right lower quadrant of the abdomen . Procedure Note Interface, [facility] Incoming Radiology Results - 07/23/2017 8:06 AM CDT AP VIEW PELVIS AND FROG LEG VIEW RIGHT HIP History: Fall Comparison: CT of the right hip performed the same day. FINDINGS: BONES: Very difficult to visualize fracture involving the superior aspect right greater trochanter. This is better appreciated on CT scan. Again noted is surgical fixation of intertrochanteric fracture of the left hip. No other fracture. No dislocation. HIP JOINT SPACES: Well maintained. SACROILIAC JOINT SPACES: Well maintained. PUBIC SYMPHYSIS: Well maintained. SOFT TISSUES: Penile prosthesis. Surgical clips are seen within the right groin and proximal thigh. Surgical clips are also present within the right lower quadrant of the abdomen. IMPRESSION IMPRESSION: Subtle nondisplaced avulsion fracture involving the superior aspect of the greater trochanter. Performing Organization Address City/State/[facility] one Number INTERFACE SYSTEM INTERFACE SYSTEM Refer to clinic/hospital department documented in this encounter Visit Diagnoses Diagnosis Closed displaced fracture of greater tr ochanter of right femur, initial encounter - Primary Acute cystitis without hematuria Acute cystitis Urinary retention Retention of urine, unspecified documented in this encounter Administered Medications Action Date Dose Rate Site Medication Order MAR Action 07/23/2017 5:17 AM CDT 1,000 mg 100 mL/hr cefTRIAXone (ROCEPHIN) 1,000 mg in New Bag sodium chloride 0.9% 50 mL IVPB 1,000 mg, IV, ONE TIME ONLY, 1 dose, Fr i 07/23/17 at 0515, Routine, Antibiotic Indication: Urinary Tract Infection(UTI ) / Infection 07/23/2017 5:15 AM CDT 50 mcg fentaNYL PF (SUBLIMAZE) 50 mcg/mL Push injection 50 mcg 50 mcg, IV, ONE TIME ONLY, 1 dose, 07/23/17 at 0500, Stat 07/23/2017 4:03 AM CDT 2 mg morphine 4 mg/mL injection 2 mg Given 2 mg, IV, ONE TIME ONLY, 1 dose, 07/23/17 at 0400, Routine 07/23/2017 4:32 AM CDT 2 mg morphine 4 mg/mL injection 2 mg Push 2 mg, IV, ONE TIME ONLY, 1 dose, 07/23/17 at 0445, Routine 07/23/2017 4:03 AM CDT 4 mg ondansetron (ZOFRAN) 4 mg/2 mL injection Given 4 mg 4 mg, IV, ONE TIME ONLY, 1 dose, Wed07/23/17 at 0400, Routine documented in this encounter Additional Health Concerns Assessment Noted Time A Hypertension Plan of Care has been documented for t he patient 02/12/2017 12:54 PM CDT documented as of this encounter
--- OUTSIDE RECORDS SUMMARY | 2020-03-24 13:58 | XMS REPORT | Encounter Summary ---
Author Author [facility] Organization [facility] Address Unknown Phone Unavailable Care Team Providers Care Signals Intelligence Superintendent Name Role Phone Claus Couch MD PCP Reason for Visit * Auth/Cert Referred By Contact Referred To Contact Status Reason Specialty Diagnoses / Procedures [facility] [place] [address] [place] [address] Home Health Encounter Details Care Team Description Date Type Department Marissa Pitts RN SN - OASIS TRANSFER W/OUT DC 07/26/2017 [facility] [address] [place] [address] Social History Date Tobacco Use [...] Visit Type - SN - OASIS TRANS W/OUT DC Discipline - Senior Care Status Goals Interventions Problem Descriptio Start Date n Active - 1 problem intervention scheduled/documented in this visit Physical Discomfort Alteration 07/09/2017 Disciplines: in comfort Senior Care Active - 1 problem intervention scheduled/documented in this visit Skilled Observation and Skilled 07/09/2017 Assessment nursing Disciplines: observatio Senior Care n [...]
--- OUTSIDE RECORDS SUMMARY | 2020-03-24 13:58 | XMS REPORT | Encounter Summary ---
Author Author [facility] Organization [facility] Address Unknown Phone Unavailable Care Team Providers Care Sales Associate Key Holder Name Role Phone Claus Couch MD PCP Reason for Visit * Auth/Cert Referred By Contact Referred To Contact Status Reason Specialty Diagnoses / Procedures [facility] Health [place] [place] [address] Home Health Encounter Details Care Team Description Date Type Department Shahram Dyson Physical Therapist PT - REASSESSMENT 07/28/2017 [facility] [address] [place] [address] Social History Date Tobacco Use [...] Intervention Associated Status Problem/Go al Pt is not safe to be left alone and is not to bear any wt on the (R) LE. Pt is now a two person transfer from bed to w/c, recliner, commode, etc. Instruct home safety Problem: Completed Description: Home Instruct patient and Safety caregiver as needed in home and fall safety precautions through the Fall Prevention Program. Pt sits for (B) knee raises, LAQ ex x 10 reps eeach. Pt reclines for (B) SLR, heel slides, hip abd/add ex x 10 reps each. Pt demos greater ROM and strength in the (R) LE vs the (L). PT establish or upgrade Problem: Completed home program PT Description: Establish Home exercise program for or Upgrade generalized LE Home strengthening. Program Pt is NWB on the (R) LE; pt has not walked since falling and sustaining a fx to the (R) hip Pt gait training Problem: Completed Description: PT Gait Evaluate and instruct Training patient and caregiver in safe gait training on all surfaces including step/ramp training as needed in home or to exit home, full wt-bearing and using a 2WW. Pt is a two person transfer to/fm bed, recliner, w/c, etc. Pt had transferred to the recliner from bed prior to therapist arrival for rx; pt declines attempting sit to stand transfer for therapist. Advised caregivers to change pt's position every 2-3 hours from bed to chair and vice versa. PT transfer training Problem: Completed Description: PT Evaluate and instruct Transfer patient/caregiver in safe Training transfer training using appropriate body mechanics, full weight bearing, and necessary equipment. documented in this encounter Home Health Visit - Actions and Narratives Pt needs assist/reminders to do HEP rou stalin, written instructions provided. Pt needs assist of two for transfers. P t is able to roll to either side to relieve pressure and is able to do chair push-ups to relieve pr essure from the buttocks. Pt fell in his home on 07/23/17 and sust ained a displaced fx of the (R) greater trochanter. Pt says he is not to put any wt on the (R) LE. documented in this encounter
--- OUTSIDE RECORDS SUMMARY | 2020-03-24 13:58 | XMS REPORT | Encounter Summary ---
Author Author [facility] Organization [facility] Address Unknown Phone Unavailable Care Team Providers Care Spider Assembler Name Role Phone Claus Couch MD PCP Reason for Visit * Reason Comments Medication Refill Encounter Details Care Team Description Date Type Department Claus Couch MD [address] [place] [address] 07/21/2017 Refill [facility] Primar y Care [place] [address] [place] [address] Social History Date Tobacco Use [...]
--- OUTSIDE RECORDS SUMMARY | 2020-03-24 13:58 | XMS REPORT | Encounter Summary ---
Author Author [facility] Organization [facility] Address Unknown Phone Unavailable Care Team Providers Care Nuclear Plant Construction Worker Name Role Phone Claus Couch MD PCP Reason for Visit * Auth/Cert Referred By Contact Referred To Contact Status Reason Specialty Diagnoses / Procedures [facility] [place] [place] [address] Home Health Encounter Details Care Team Description Date Type Department Karen Up (Student), Reinforcing Metal Worker PT - MISSED VISIT NO TRAVEL 07/19/2017 [facility] [address] [place] [address] Social History Date Tobacco Use [...] home, full wt-bearing and using a 2WW. documented in this encounter
--- OUTSIDE RECORDS SUMMARY | 2020-03-24 13:58 | XMS REPORT | Encounter Summary ---
Author Author [facility] Organization [facility] Address Unknown Phone Unavailable Care Team Providers Care Warehouse General Laborer Name Role Phone Claus Couch MD PCP Reason for Visit * Auth/Cert Referred By Contact Referred To Contact Status Reason Specialty Diagnoses / Procedures [facility] Home Health [place] [address] [place] [address] Home Health Encounter Details Care Team Description Date Type Department Marissa Pitts RN SN - HOME VISIT 07/28/2017 [facility] [address] [place] [address] Social History Date Tobacco Use [...] Vital Sign - - Blood Pressure 76 07/28/2017 2:40 PM CDT Pulse - - Temperature 20 07/28/2017 2:40 PM CDT Respiratory Rate 95% 07/28/2017 2:40 PM CDT Oxygen Saturation - - Inhaled [...] SN - HOME VISIT Discipline - Senior Living Status Goals Interventions Problem Descriptio Start Date n Active - 1 problem intervention scheduled/documented in this visit HH Wound Management Presence 07/16/2017 Disciplines: of Senior Living Stage[I], [II], [III], [IV] pressure ulcer Active - 2 problem interventions scheduled/documented in this visit Home Safety Home 07/09/2017 Disciplines: safety Senior Living Active - 1 problem intervention scheduled/documented in this visit Learning/Teaching Needs - Learning/t 07/16/2017 Pressure Ulcer eaching Disciplines: needs re: Senior Living prevention and care of pressure ulcer Active - 2 problem interventions scheduled/documented in this visit Nutritional concerns Nutritiona 07/09/2017 Disciplines: l intake Senior Living concerns Active - 1 problem intervention scheduled/documented in this visit Physical Discomfort Alteration 07/09/2017 Disciplines: in comfort Senior Living Active - 1 problem intervention scheduled/documented in this visit Pulse Oximetry Skilled 07/09/2017 Disciplines: assessment Senior Living and monitoring of O2 saturation s. Active - 1 problem intervention scheduled/documented in this visit Skilled Observation and Skilled 07/09/2017 Assessment nursing Disciplines: observatio Senior Living n and assessment . Variance Visit Notes Intervention Associated Status Problem/Go al Instruct positioning Problem: Completed Description: HH Wound Instruct Patient and Management Caregiver in proper positioning strategies: Side lying and change every two hours. Instruct home safety Problem: Completed Description: Home [...] use of pressure relieving devices/strategies: moisture barrier. Skilled assessment Problem: Completed nutrition Nutritiona Description: [...] Home Health Visit - Actions and Narratives Teaching to pt/caregivers regarding pos itioning in hospital bed and massage of pressure points. Verbalized understanding. documented in this encounter
--- OUTSIDE RECORDS SUMMARY | 2020-03-24 13:58 | XMS REPORT | Encounter Summary ---
Author Author [facility] Organization [facility] Address Unknown Phone Unavailable Care Team Providers Care Account Support Rep Name Role Phone Claus Couch MD PCP Reason for Visit * Reason Comments Medication Refill Encounter Details Care Team Description Date Type Department Claus Couch MD [address] [place] [address] 07/30/2017 Refill [facility] Primar y Care [place] [address] [place] [address] Social History Date Tobacco Use [...]
--- OUTSIDE RECORDS SUMMARY | 2020-03-24 13:58 | XMS REPORT | Encounter Summary ---
Author Author [facility] Organization [facility] Address Unknown Phone Unavailable Care Team Providers Care Electronic Prepress Technician Name Role Phone Claus Couch MD PCP Reason for Visit * Auth/Cert Referred By Contact Referred To Contact Status Reason Specialty Diagnoses / Procedures [facility] Health [place] [address] [place] [address] Home Health Encounter Details Care Team Description Date Type Department Shahram Dyson Physical Therapist PT - MISSED VISIT NO TRAVEL 07/21/2017 Home Care [facility] [address] [place] [address] Social History Date Tobacco Use [...]
--- OUTSIDE RECORDS SUMMARY | 2020-03-24 13:58 | XMS REPORT | Encounter Summary ---
Author Author [facility] Organization [facility] Address Unknown Phone Unavailable Care Team Providers Care Loss Prevention Detective Name Role Phone Claus Couch MD PCP Encounter Details Care Team Description Date Type Department Claus Couch MD [address] [place] [address] 08/05/2017 Abstract [facility] Primar y Care [place] [address] [place] [address] Social History Date Tobacco Use [...]
--- OUTSIDE RECORDS SUMMARY | 2020-03-24 13:58 | XMS REPORT | Encounter Summary ---
Author Author [facility] Organization [facility] Address Unknown Phone Unavailable Care Team Providers Care Used Car Make Ready Mechanic Name Role Phone Claus Couch MD PCP Reason for Visit * Auth/Cert Referred By Contact Referred To Contact Status Reason Specialty Diagnoses / Procedures [facility] [place] [address] [place] [address] Home Health Encounter Details Care Team Description Date Type Department Marissa Pitts RN SN - OASIS RESUMPTION OF CARE 07/27/2017 [facility] [address] [place] [address] Social History Date Tobacco [...] Oxygen Saturation - - Inhaled Oxygen Concentration 71.2 kg (157 lb) 07/27/2017 1:36 PM CDT Weight - - Height 25.34 07/23/2017 3:34 AM CDT Body Mass Index [...] Plan Visit Type - SN - OASIS JOCE Discipline - Group Home Status Goals Interventions Problem Descriptio Start Date n Active - 1 problem intervention scheduled/documented in this visit HH Wound Management Presence 07/16/2017 Disciplines: of Group Home Stage[I], [II], [III], [IV] pressure ulcer Active - 1 problem intervention scheduled/documented in this visit Home Safety Home 07/09/2017 Disciplines: safety Group Home Active - 1 problem intervention scheduled/documented in this visit Learning/Teaching Needs - Learning/t 07/16/2017 Pressure Ulcer eaching Disciplines: needs re: Group Home prevention and care of pressure ulcer Active - 1 problem intervention scheduled/documented in this visit Medications Management 07/09/2017 Disciplines: of home Group Home medication s Active - 1 problem intervention scheduled/documented in this visit Physical Discomfort Alteration 07/09/2017 Disciplines: in comfort Group Home Active - 1 problem intervention scheduled/documented in this visit Pulse Oximetry Skilled 07/09/2017 Disciplines: assessment Group Home and monitoring of O2 saturation s. Active - 1 problem intervention scheduled/documented in this visit Skilled Observation and Skilled 07/09/2017 Assessment nursing Disciplines: observatio Group Home n [...] in the plan of care. Skilled assessment risk Problem: Completed for injury [...] use of pressure relieving devices/strategies: moisture barrier. Reconciled home medications with hospital discharge medication orders. Pt. is taking medications as prescribed with no discrepancie or medication related problems identified. Skilled assessment Problem: Completed medications Medication Description: [...] Home Health Visit - Actions and Narratives MD notified of drug interactions. documented in this encounter
--- OUTSIDE RECORDS SUMMARY | 2020-03-24 13:58 | XMS REPORT | Encounter Summary ---
Author Author [facility] Organization [facility] Address Unknown Phone Unavailable Care Team Providers Care Health Concierge Name Role Phone Claus Couch MD PCP Encounter Details Care Team Description Date Type Department Claus Couch MD [address] [place] [address] 07/29/2017 Abstract [facility] Primar y Care [place] [address] [place] [address] Social History Date Tobacco Use [...]
--- OUTSIDE RECORDS SUMMARY | 2020-03-24 13:58 | XMS REPORT | Encounter Summary ---
Author Author [facility] Organization [facility] Address Unknown Phone Unavailable Care Team Providers Care Obstetrician/Gynecologist Name Role Phone Claus Couch MD PCP Reason for Visit * Auth/Cert Referred By Contact Referred To Contact Status Reason Specialty Diagnoses / Procedures [facility] [place] [address] [place] [address] Home Health Encounter Details Care Team Description Date Type Department Shahram Dyson Physical Therapist PT - HOME VISIT 07/30/2017 [facility] [address] [place] [address] Social History Date Tobacco Use [...] Signs Reading Time Taken Comments Vital Sign 98/84 07/30/2017 10:15 AM CDT Blood Pressure - - Pulse [...] Associated Status Problem/Go al Pt is not able to maintain NWB status on the (R) LE and requires significant assist for safe transfers. Pt has hospital bed, w/c, 2WW. Caregivers vary pt's location frequently throughout the day from the bed, recliner and w/c. Instruct home safety Problem: Completed Description: Home Instruct patient and Safety caregiver as needed in home and fall safety precautions through the Fall Prevention Program. Pt supine for (B) SLR, knees to chest, hip abd/add ex x 10 reps each. Pt sits bedside for (B) knee raises, LAQ ex x 10 reps each. Pt stands w/support of 2WW for (R) hip flex, abd and ham curls x 10 reps each. PT establish or upgrade Problem: Completed home program PT Description: Establish Home exercise program for or Upgrade generalized LE Home strengthening. Program Pt amb 5 ft x 1 using 2WW on level surface; pt puts more than TT WB on the (R) LE and this is not acceptable. Instructed pt's caregiver to transfer pt into the w/c and wheeel the pt to/fm the bed to/fm the recliner. They verbalized understanding of same. Pt gait training Problem: Completed Description: PT Gait Evaluate and instruct Training patient and caregiver in safe gait training on all surfaces including step/ramp training as needed in home or to exit home, full wt-bearing and using a 2WW. Pt requires min/mod asst ( approx 40# of lift) for successful sit to stand transfer from the bed. Pt able to stand w/no wt on the (R) LE. Pt able to go from stand to sit w/CGA of 1. Pt performs sit to stand transfer to/fm the w/c to the reclinerd w/min assist of 1. PT transfer training Problem: Completed Description: PT Evaluate and instruct Transfer patient/caregiver in safe Training transfer training using appropriate body mechanics, full weight bearing, and necessary equipment. documented in this encounter Home Health Visit - Actions and Narratives Pt reports he has more pain in the (R) hip at night; pain level during the day is tolerable. Pt's caregiver says pt was in obvious severe pain last night. Caregiver says pt has been walking 5-8 ft from the bed to the recliner; when aske d if pt can maintain NWB status, the caregiver said the pt was putting "some wt on the (R) LE." Ad vised caregiver that pt was to put no weight on the (R) LE. documented in this encounter
--- OUTSIDE RECORDS SUMMARY | 2020-03-24 13:58 | XMS REPORT | Encounter Summary ---
Author Author [facility] Organization [facility] Address Unknown Phone Unavailable Care Team Providers Care Installation Drafter Name Role Phone Claus Couch MD PCP Reason for Visit * Reason Comments Medication Refill Encounter Details Care Team Description Date Type Department Claus Couch MD [address] [place] [address] 08/04/2017 Refill [facility] Primar y Care [place] [address] [place] [address] Social History Date Tobacco Use [...]
--- OUTSIDE RECORDS SUMMARY | 2020-03-24 13:58 | XMS REPORT | Encounter Summary ---
Author Author [facility] Organization [facility] Address Unknown Phone Unavailable Care Team Providers Care Top Trimmer Name Role Phone Claus Couch MD PCP Reason for Visit * Auth/Cert Referred By Contact Referred To Contact Status Reason Specialty Diagnoses / Procedures [facility] Home Health [place] [address] [place] [address] Home Health Encounter Details Care Team Description Date Type Department Marissa Pitts RN SN - HOME VISIT 08/05/2017 [facility] [address] [place] [address] Social History Date Tobacco Use [...] Signs Reading Time Taken Comments Vital Sign 100/56 08/05/2017 4:05 PM CDT Blood Pressure 68 08/05/2017 4:05 PM CDT Pulse - - Temperature 20 08/05/2017 4:05 PM CDT Respiratory Rate 95% 08/05/2017 4:05 PM CDT Oxygen Saturation - - [...] - SN - HOME VISIT Discipline - Halfway Status Goals Interventions Problem Descriptio Start Date n Active - 2 problem interventions scheduled/documented in this visit HH Wound Management Presence 07/16/2017 Disciplines: of [place]way Stage[I], [II], [III], [IV] pressure ulcer Active - 1 problem intervention scheduled/documented in this visit Home Safety Home 07/09/2017 Disciplines: safety Halfway Active - 1 problem intervention scheduled/documented in this visit Learning/Teaching Needs - Learning/t 07/16/2017 Pressure Ulcer eaching Disciplines: needs re: Halfway prevention and care of pressure ulcer Active - 1 problem intervention scheduled/documented in this visit Physical Discomfort Alteration 07/09/2017 Disciplines: in comfort Halfway Active - 1 problem intervention scheduled/documented in this visit Skilled Observation and Skilled 07/09/2017 Assessment nursing Disciplines: observatio Halfway n and assessment . Variance Visit Notes Intervention Associated Status Problem/Go al Instruct wound care Problem: Completed Description: HH Wound Instruct in wound care Management protocol, aseptic technique, proper disposal of soiled dressings. Instruct of stages and characteristics of wound healing, signs and symptoms of wound infection. Wound care Problem: Completed Description: Wound Wound care to buttocks Management wound to be performed by SN or caregiver. Wound care to consist of remove old dressing, cleanse with, aseptic cleanser on 4 x 4 gauze and pat dry. Apply Mepilex AG cut to fit. Cover with Mepilex border. May apply Tegaderm if needed to secure dressing. Skilled assessment risk Problem: Completed for injury [...] pressure relieving devices/strategies: moisture barrier. Skilled assessment pain Problem: Completed Description: Physical [...]
--- OUTSIDE RECORDS SUMMARY | 2020-03-24 13:58 | XMS REPORT | Encounter Summary ---
Author Author [facility] Organization [facility] Address Unknown Phone Unavailable Care Team Providers Care Automobile Radiator Mechanic Name Role Phone Claus Couch MD PCP Reason for Visit * Auth/Cert Referred By Contact Referred To Contact Status Reason Specialty Diagnoses / Procedures [facility] [place] [place] [address] Home Health Encounter Details Care Team Description Date Type Department Shahram Dyson Physical Therapist PT - MISSED VISIT NO TRAVEL 08/03/2017 [facility] [address] [place] [address] Social History Date Tobacco Use [...]
--- OUTSIDE RECORDS SUMMARY | 2020-03-24 13:58 | XMS REPORT | Encounter Summary ---
Author Author [facility] Organization [facility] Address Unknown Phone Unavailable Care Team Providers Care High Voltage Electrician Name Role Phone Claus Couch MD PCP Encounter Details Care Team Description Date Type Department Claus Couch MD [address] [place] [address] 07/21/2017 Abstract [facility] Primar y Care [place] [address] [place] [address] Social History Date Tobacco Use [...]
--- OUTSIDE RECORDS SUMMARY | 2020-03-24 13:59 | XMS REPORT | Encounter Summary ---
Author Author [facility] Organization [facility] Address Unknown Phone Unavailable Care Team Providers Care Sweet Goods Machine Operator Name Role Phone Claus Couch MD PCP Reason for Visit * Reason Comments Medication Refill Encounter Details Care Team Description Date Type Department Neyda Redmond MD [address] [place] [address] 07/07/2017 Refill [facility] Prim[facility] [address] [address] Social History Date Tobacco Use [...]
--- OUTSIDE RECORDS SUMMARY | 2020-03-24 13:59 | XMS REPORT | Encounter Summary ---
Author Author [facility] Organization [facility] Address Unknown Phone Unavailable Care Team Providers Care Career Information Specialist Name Role Phone Claus Couch MD PCP Reason for Visit * Reason Comments Medication Refill Encounter Details Care Team Description Date Type Department Claus Couch MD [address] [place] [address] 07/05/2017 Refill [facility] Care [place] [address] [place] [address] Social History Date Tobacco Use [...]
--- OUTSIDE RECORDS SUMMARY | 2020-03-24 13:59 | XMS REPORT | Encounter Summary ---
Author Author [facility] Organization [facility] Address Unknown Phone Unavailable Care Team Providers Care Contact Center Team Lead Name Role Phone Claus Couch MD PCP Reason for Visit * Auth/Cert Referred By Contact Referred To Contact Status Reason Specialty Diagnoses / Procedures [facility] [place] [id number] [place] [address] Home Health Encounter Details Care Team Description Date Type Department Shahram Dyson Physical Therapist PT - INITIAL DISCIPLINE VISIT 07/13/2017 [facility] [address] [place] [address] Social History Date Tobacco Use [...] Reading Time Taken Comments Vital Sign 126/62 07/13/2017 10:05 AM CDT Blood Pressure - - Pulse [...] exercise Disciplines: program Physical Therapy Resolved on 07/13/2017 - 1 problem intervention scheduled/documented in this visit PT Evaluation Evaluation 07/13/2017 Disciplines: of the Physical Therapy patient's condition, [...] Visit Notes Intervention Associated Status Problem/Go al Pt's home has pathways that accommodate the use of the 2WW. Pt has a lift chair, a bedside commode that pt keeps near the lift chair for quick transfers, if needed. Pt also has a manual w/c that he uses for long distance mobility. Instruct home safety Problem: Completed Description: Home Instruct { PATIENT Safety CAREGIVER: 916845} as needed in home and fall safety precautions through the Fall Prevention Program. Pt sits for (B) knee raises, LAQ ex x 10 reps each. Pt performs 3 sit to stand transfers up from the lift chair w/o use of the lift feature. Pt needs supervision for safe transfers and amb. PT establish or upgrade Problem: Completed home program PT Description: Establish Home exercise program for or Upgrade { level of Home GOALS:528044} { SPECIFY Program DISEASE/PROBLEM GOALS:391085}. PT evaluation Problem: Completed Description: PT Physical therapy to visit Evaluation for evaluation of the patient's condition, home environment to eliminate structural barriers and to improve safety, increase functional independence through the use of ramps, adaptive wheelchair, bathroom aides, etc.. Treat as indicated related to physical therapy, and rehabilitation potential. Pt amb 40 ft x 1 using 2WW; the walker is very old and it appears that the wheels have been changed from the originals. Pt needs CGA for balance; pt is able to direct/control the 2WW (I). Pt/caregiver instructed to amb 5 times a day together for a distance of 40 ft using the 2WW. Both verbalize understanding of same. Pt gait training Problem: Completed Description: PT Gait Evaluate and instruct {HH Training PATIENT CAREGIVER:536744}in safe gait training on all surfaces including step training as needed in home or to exit home, full weight bearing and using . documented in this encounter Home Health Visit - Actions and Narratives Pt has paid caregiver each day for sign ificant portions of the day. PT will instruct pt and caregiver in a gait and exercise routin e for pt to complete on a daily basis as tolerated. Pt says he spent three months [facility] for [facility]. Pt says he did very little rehab and complains of being heavily medicate d during that time. Pt says he returns to Dr Couch on to work on organizing/reducing his medicines. Pt also c/o pain in his chest today and says that he took 2 nitro tabs to relieve pain. documented in this encounter
--- OUTSIDE RECORDS SUMMARY | 2020-03-24 13:59 | XMS REPORT | Encounter Summary ---
Author Author [facility] Organization [facility] Address Unknown Phone Unavailable Care Team Providers Care Supervisor Pigment Making Name Role Phone Claus Couch MD PCP Reason for Visit * Reason Comments Medication Refill Encounter Details Care Team Description Date Type Department Claus Couch MD [address] [place] [address] 06/29/2017 Refill [facility] Prim[facility] [place] [address] [place] [address] Social History Date Tobacco Use [...]
--- OUTSIDE RECORDS SUMMARY | 2020-03-24 13:59 | XMS REPORT | Encounter Summary ---
Author Author [facility] Organization [facility] Address Unknown Phone Unavailable Care Team Providers Care Sr. Payroll Manager Name Role Phone Claus Couch MD PCP Reason for Visit * Reason Comments Medication Refill Encounter Details Care Team Description Date Type Department Claus Couch MD [address] [place] [address] 06/25/2017 Refill [facility] [place] [address] [place] [address] Social History Date Tobacco Use [...]
--- OUTSIDE RECORDS SUMMARY | 2020-03-24 13:59 | XMS REPORT | Encounter Summary ---
Author Author [facility] Organization [facility] Address Unknown Phone Unavailable Care Team Providers Care Information Security Engineer Name Role Phone Claus Couch MD PCP Reason for Visit * Reason Comments Medication Refill Encounter Details Care Team Description Date Type Department Claus Couch MD [address] [place] [address] 07/01/2017 Refill [facility] Prim[facility] Care [place] [address] [place] [address] Social History Date Tobacco [...]
--- OUTSIDE RECORDS SUMMARY | 2020-03-24 13:59 | XMS REPORT | Encounter Summary ---
Author Author [facility] Organization [facility] Address Unknown Phone Unavailable Care Team Providers Care Foot Setter Name Role Phone Claus Couch MD PCP Encounter Details Care Team Description Date Type Department Claus Couch MD [address] [place] [address] 06/17/2017 Abstract [facility] Primar [facility] Care [place] [address] [place] [address] Social History Date Tobacco Use [...]
--- OUTSIDE RECORDS SUMMARY | 2020-03-24 13:59 | XMS REPORT | Encounter Summary ---
Author Author [facility] Organization [facility] Address Unknown Phone Unavailable Care Team Providers Care Sas Programmer Remote Name Role Phone Claus Couch MD PCP Encounter Details Care Team Description Date Type Department Claus Couch MD [address] [place] [address] 07/06/2017 Abstract [facility] Prim[facility] Care [place] [address] [place] [address] Social History Date Tobacco Use [...]
--- OUTSIDE RECORDS SUMMARY | 2020-03-24 13:59 | XMS REPORT | Encounter Summary ---
Author Author [facility] Organization [facility] Address Unknown Phone Unavailable Care Team Providers Care Pony Roll Finisher Name Role Phone Claus Couch MD PCP Encounter Details Care Team Description Date Type Department Claus Couch MD [address] [place] [address] 07/15/2017 Abstract [facility] Primar y Care [place] [address] [place] [address] Social History Date Tobacco Use [...]
--- OUTSIDE RECORDS SUMMARY | 2020-03-24 13:59 | XMS REPORT | Encounter Summary ---
Author Author [facility] Organization [facility] Address Unknown Phone Unavailable Care Team Providers Care Stringed Instrument Repairer Name Role Phone Claus Couch MD PCP Reason for Referral * Eval and Treat (Routine) Referred By Contact Referred To Contact Status Reason Specialty Diagnoses / Procedures Mary Zhou MD NO ADDRESS ON FILE Closed Wound Care Diagnoses Pressure ulcer of coccygeal region, stage 3 Encounter Details Care Team Description Date Type Department Mary Zhou MD NO ADDRESS ON FILE 07/19/2017 [facility] Encounter [facility] [address] [place] [address] Social History Date Tobacco Use [...] Signs Reading Time Taken Comments Vital Sign 89/56 07/19/2017 11:21 AM CDT Blood Pressure 96 07/19/2017 11:21 AM CDT Pulse 36.2 C (97.2 F) 07/19/2017 11:21 AM CDT Temperature - - Respiratory Rate - - Oxygen Saturation - - Inhaled Oxygen Concentration 69.4 kg (153 lb) 07/19/2017 11:21 AM CDT Weight 167.6 cm (5' 6") 07/19/2017 11:21 AM CDT Height 24.69 07/19/2017 11:21 AM CDT Body Mass Index documented in this encounter Medications at Time of Discharge Start Date End Date Medication Sig Dispensed Refills 03/25/2017 isosorbide mononitrate TAKE ONE 60 Tablet [...] Drop in both eyes 2 times daily. 07/15/2017 04/26/2018 nitroglycerin (NITROSTAT) DISSOLVE 1 25 [...] (FLONASE) 50 Administer 2 16 Gram mcg/spray [place], Sprays in Suspension each nostril daily. 07/07/2017 [...] mouth daily 145 mg tablet with supper. 07/05/2017 07/21/2017 oxyCODONE-acetaminophen TAKE 2 30 Tablet 0 (PERCOCET) 10-325 mg TABLETS EVERY Tablet 4 HOURS NEEDED FOR BREAKTHRU PAIN Fax to [facility] [phone]. 07/01/2017 07/21/2017 temazepam (RESTORIL) 7.5 Take 1 30 Capsule 5 mg capsule Capsule (7.5 mg) by mouth nightly as needed for Insomnia Fax to [facility] [phone]. 06/29/2017 07/21/2017 oxyCODONE (OxyCONTIN) 20 Take 1 Tablet 60 Tablet 0 mg Controlled Release 12 (20 mg) by hour crush resistant mouth every tablet 12 hours Fax to [facility] [phone]. 06/29/2017 07/21/2017 LORazepam (ATIVAN) 1 mg TAKE ONE 60 Tablet 5 tablet TABLET BY MOUTH 2 TIMES A DAY. Fax to [facility] [phone]. 05/18/2017 08/23/2017 ondansetron (ZOFRAN ODT) Place 1 8 Tablet 1 4 mg Tablet, Rapid Tablet (4 mg) Dissolve under tongue every 6 hours as needed for Nausea/Emesis . 04/09/2017 10/20/2017 simvastatin (ZOCOR) 40 mg TAKE ONE 90 Tablet 1 tablet TABLET (40MG) BY MOUTH EVERY DAY IN THE EVENING 03/25/2017 07/21/2017 FLUoxetine (PROzac) 20 mg TAKE 2 60 Capsule 5 capsule CAPSULES BY MOUTH EVERY DAY. 02/12/2017 07/21/2017 gabapentin (NEURONTIN) Take 1 30 Capsule 3 100 mg capsule Capsule (100 mg) by mouth daily at bedtime. 02/01/2017 11/23/2017 clopidogrel (PLAVIX) 75 Take 1 Tab by 30 Tablet 5 mg Tablet mouth daily. 12/29/2016 10/20/2017 ezetimibe (ZETIA) 10 mg Take 1 Tab by 30 Tablet 5 tablet mouth daily at bedtime. 12/14/2016 10/05/2017 OLANZapine (ZyPREXA) 2.5 Take 1 Tab by 30 Tablet 5 mg tablet mouth daily at bedtime. 03/02/2016 07/21/2017 traZODone (DESYREL) 50 mg Take 1 Tab by 30 Tablet 3 tablet mouth daily at bedtime.. 09/10/2010 04/26/2018 MULTIVITAMIN PO Take 1 Tab by 0 mouth daily with lunch. documented as of this encounter Progress Notes * Mary Zhou MD - 07/20/2017 2:04 PM CDT Subjective: Oliverio Dalton is an 66 y.o. male who presents for evaluation of coccygeal pre ssure ulcers. Patient currently [facility]. Patient bed ridden. Had developed "diaper rash" and now has coccygeal ulcers on coccyx and both alex es of gluteal cleft. Past Medical History: Diagnosis Date Anxiety Asthma Cataract Chronic ischemic heart disease, unspecified Contusion, back 08/16/03 Fall COPD (chronic obstructive pulmonary disease) Coronary artery disease Diabetes Glaucoma Seizure disorder last seizure 2010 Unspecified disease of respiratory system Unspecified disorder of lipoid metabolism Unspecified essential hypertension Wrist sprain 08/10 Rt. Past Surgical History: Procedure Laterality Date HX CATARACT REMOVAL 2000 HX CORONARY ARTERY BYPASS GRAFT HX HEART CATHETERIZATION 04/10 With angioplasty, 2 stents HX HERNIA INGUINAL REPAIR Right 03/08/2015 HERNIA INGUINAL REPAIR performed by Mary Zhou MD at [facility] OR HX HERNIA REPAIR 1988 And age [...] SURGICAL OTHER 07/11 Colonoscopy HX TURP 08/2003 CO COLONOSCOPY FLX DX W/COLLJ SPEC WHEN PFRMD 02/01/2009 COLONOSCOPY performed by MARY ZHOU at [facility] OR CO COLONOSCOPY FLX DX W/COLLJ SPEC WHEN PFRMD 12/28/2013 COLONOSCOPY performed by Mary Zhou MD at [facility] OR CO LAP,APPENDECTOMY 05/28/2012 APPENDECTOMY LAPAROSCOPIC performed by Mary Zhou MD at [facility] OR CO REPAIR UMBILICAL JOSE,5+Y/O,REDUC 05/28/2012 HERNIA UMBILICAL REPAIR performed by Mary Zhou MD at [facility] OR PSA 09/13 Family History Problem Relation Age of Onset Other Mother Blood pressure Diabetes Mother Respiratory Disease Mother Asthma Mother Other Sister Blood pressure Diabetes Sister Respiratory Disease Sister Heart Disease Sister Asthma Sister Lung Cancer Brother Seizures Brother Other Father "brain anuerysm" Healthy Daughter Heart Disease Son Healthy Daughter Healthy Daughter Healthy Son Healthy Son Healthy Son Healthy Son Current Outpatient Prescriptions Medication Sig Dispense Refill nitroglycerin (NITROSTAT) 0.4 mg Tablet, Sublingual DISSOLVE 1 TABLET UNDER TONGUE EVERY 5 MINUTES NEEDED FOR CHEST KULDEEP N. DO NOT EXCEED 3 DOSES. 25 Tabl et PRN bethanechol (URECHOLINE) 25 mg tablet TAKE ONE TABLET BY MOUTH FOUR TIMES A DAY 120 Tablet 3 fluticasone (FLONASE) 50 mcg/spray [place], Suspension Administer 2 Sprays in each nostril [...] ONE CAPSULE BY MOUTH EVERY DAY 30 NV NUTES AFTER SUPPER 30 Capsule 11 fenofibrate nanocrystallized (TRICOR) 145 mg tablet Take 1 Tab by mouth jono y with supper. 30 Tablet 11 glimepiride (AMARYL) 2 mg tablet Take 1 Tablet (2 mg) by mouth daily with br eakfast. 30 Tablet 11 oxyCODONE-acetaminophen (PERCOCET) 10-325 mg Tablet TAKE 2 TABLETS EVERY 4 H OURS NEEDED FOR BREAKTHRU PAIN Fax to [facility] [phone]. 30 Tablet 0 temazepam (RESTORIL) 7.5 mg capsule Take 1 Capsule (7.5 mg) by mouth nightly as needed for Insomnia Fax to [facility] [phone]. 30 Capsule 5 oxyCODONE (OxyCONTIN) 20 mg Controlled Release 12 hour crush resistant table t Take 1 Tablet (20 mg) by mouth every 12 hours Fax to [facility] [phone]. 78 Tablet 0 LORazepam (ATIVAN) 1 mg tablet TAKE ONE TABLET BY MOUTH 2 TIMES A DAY. Fax to [facility] [phone]. 60 Tablet 5 simvastatin (ZOCOR) 40 mg tablet TAKE ONE TABLET (40MG) BY MOUTH EVERY DAY I N THE EVENING 90 Tablet 1 NICOTINE TRANSDERMAL Apply 14 mg to skin as directed daily. SENNOSIDES ORAL Take 1 Tablet by mouth 2 times daily. esomeprazole Magnesium (NexIUM) 10 mg suspension delayed release Take 40 mg by mouth daily. ibuprofen (MOTRIN) 200 mg tablet Take 400 mg by mouth daily. FLUoxetine (PROzac) 20 mg capsule TAKE 2 CAPSULES BY MOUTH EVERY DAY. 60 Cap j carlos 5 isosorbide mononitrate (IMDUR) 60 mg Extended Release 24 hour tablet TAKE ON E TABLET BY MOUTH 2 TIMES A DAY 60 Tablet 5 loratadine (CLARITIN) 10 mg tablet Take 1 Tab by mouth daily. 30 Tablet 5 phenytoin sodium (DILANTIN EXTENDED) 100 mg extended release capsule Take 20 0 mg by mouth 2 times daily . gabapentin (NEURONTIN) 100 mg capsule Take 1 Capsule (100 mg) by mouth daily at bedtime. 30 Capsule 3 pantoprazole (PROTONIX) 40 mg Tablet, Delayed Release (E.C.) Take 1 Tablet ( 40 mg) by mouth daily. 30 Tablet 5 clopidogrel (PLAVIX) 75 mg Tablet Take 1 [...] inhalation 2 times daily.. 12 Gram 5 traZODone (DESYREL) 50 mg tablet Take 1 Tab by mouth daily at bedtime.. 30 T ablet 3 polyethylene glycol 3350 (MIRALAX) 17 gram/dose Powder Take 1 SCOOP (17 Gram ) by mouth daily Dissolve in 8 ounces of fluid and drink entire liquid. 527 Gram 0 blood sugar diagnostic (ACCU-CHEK ACTIVE TEST) Misc Strp In the am & pm prn 1 Package 0 magnesium oxide 250 mg Oral Tab Take 1 Tab by mouth 3 times daily. ASPIRIN EC 81 mg Oral TbEC Take [...] 12 mg Intra-arTICular ONCE Jona Doran APRN Allergies Allergen Reactions Codeine Unknown Doxycycline Rash Penicillins Hives Phenobarbital Weakness "relaxes me too much" Piperacillin-Tazobactam Hives and Rash Breaks out Septra [Sulfamethoxazole-Trimethoprim] Nausea and Vomiting Terazosin Other (See Comments) Chest heaviness, chest pain Valium [Diazepam] Other (See Comments) "stops breathing, no pulse" Unresponsiveness "stops breathing, no pulse" Social History Social History Marital status: Spouse name: N/A Number of children: N/A Years of education: N/A Occupational History Disabled Social History Main Topics Smoking status: Current Every Day Smoker Packs/day: 1.00 Years: 40.00 Types: Cigarettes Last attempt to quit: 03/08/1995 Smokeless tobacco: Never Used Comment: Restarted smoking cigarettes 1 pack every two weeks since 05/2013. Alcohol use No Drug use: No Sexual activity: Yes Partners: Female Other Topics Concern Not on file Social History Narrative Review of Systems Pertinent positives noted in HPI. Remaining ROS negative and noncontributory. Objective: BP (!) 89/56 (BP Location: Right arm, Patient Position (BP): Sitting) | Pulse 9 6 | Temp 97.2 F (36.2 C) (Tympanic) | Ht 5' 6" (1.676 m) | Wt 69.4 kg (153 lb) | BMI 24.69 kg/m2 General: alert, in no distress, appears older than stated age Skin: Coccyx area with stage 3 ulcer with slight amount of slough. Stage 2 ulc ers on both side of gluteal cleft. Surrounding skin pink. Eyes: negative Mouth: MMM no lesions Lymph Nodes: deferred Lungs: normal respiratory effort Heart: irregularly irregular rhythm Abdomen: Soft, non-tender. Bowel sounds normal. No masses, no organomegaly. CVA: absent Genitourinary: defer exam Extremities: extremities normal, atraumatic, no cyanosis or edema Neurologic: negative Psychiatric: non focal No results found. However, due to the size of the patient record, not all encoun ters were searched. Please check Results Review for a complete set of results. Assessment: Stage 3 coccygeal ulcer with slough. Will need slight debridement. Plan: 1. Wound management discussed with Wound Care nurse, see detailed note. 2. Instruction provided by Wound Care Nurse Staff. Follow up appointment given. 3. Orders Placed This Encounter AMB REFERRAL TO WOUND CLINIC NON-EXCISIONAL DEBRIDEMENT PROCEDURE: Pre-Operative Diagnosis: Stage 3 coccygeal ulcer Procedure: Non excisional debridement Wound Type : Ulcer Pressure/decubitus Wound Size (LxWxD): see nursing note Wound Location/Location of Debridement: coccyx Type of Debridement: Non-Excisional Type of instrument(s) used: Curette Deepest level of tissue debrided: Skin, full thickness Nature of tissue removed:Slough Appearance of Wound after Debridement:Fresh bleeding tissue Dressing: Wound management discussed with Wound Care nurse, see detailed note. Follow-Up: change the dressing as instructed Procedure was discussed with patient. Time Out was held and information jacinta siddiqui Evaluation of wound of interest was performed. There was no evidence of inf ection. The devitalized and/or non-viable tissues were sharply excised using cu rette. Debridement included excision of the following tissue layers: skin, subc utaneous tissues. Sharp debridement was performed back to viable tissues. Agit ation of the viable tissues for aided wound healing was also performed. Once co mpleted to satisfaction, the wound was evaluated and noted to have improved viab ility. The patient was noted to tolerate the procedure well and could return f or further staged debridement. * Sheela Valentine RN - 07/19/2017 11:00 AM CDT WOUND CARE TREATMENT NOTE [id number] Patient Name: Oliverio Dalton : 1950 Visit # 1 Date: 07/19/2017 Charges Time In: 1100 Time Out:1130 Total Time: 30 min Medical Diagnosis: Patient Active Problem List [...] hematuria N30.00 Hyponatremia E87.1 Oral thrush B37.0 Treatment Diagnosis: shallow stage 3 pressure ulcer coccyx, shallow moisture/fri ction related ulceration right medial gluteal fold, moisture/friction related ir ritation left medial gluteal fold Subjective Bottom hurts. states patient was wearing diaper during recent stay in [facility] home and she thinks that is what caused his problem. He has also been weak and sitting more. Problem List wound(s) Alteration in skin integrity Alternation in comfort Potential for/or infection Fall Risk Objective See Doc Flow Sheets for wound measurements and information. Coccyx shallow stage 3 measures 1cm x 0.3cm x 0.2cm yellow based. Right medial gluteal fold pink based shallow linear crater moisture/friction related, left me dial gluteal fold light amount irritation that appears to be resolving. Noted t o have moist stool around serina rectal area. Serina care given, wounds cleansed. Applied 2.5% Lidocaine/Prilocaine cream to coccyx ulcer. Dr Zhou in to examine , used #3 curette for light debridement of yellow slough over coccyx. Plan: Mep ilex Ag to coccyx and right medial gluteal wounds secured with Medipore tape to change prn loose, soiled, for showering etc. Use Adhesive release spray to tod ve tape. Charan Antifungal Moisture Barrier to irritated areas on buttocks that do no require dressings ( nurse reports he has supply at home) Waffle cushion f or all sitting (recliner, kitchen chair, car, etc), rotate from sitting to recli mariana on side every 2-3 hours during the day. Sleep in bed on sides during night . Right Pulse Right Edema Left Pulse Left Edema Assessment Short Term Goals: Pressure reduction to promote healing Free of infection Clean, granulating wound beds with decrease in size LTG: All wounds will close Education Demonstrated dressing change, adhesive release spray,and topical barrier applica tion, to significant other and caregiver. Demonstrated how to check for proper inflation of cushion to caregiver and signi ficant other Discussed importance of off loading pressure from coccyx Discussed cause of skin breakdown Encouraged increasing protein intake (states already taking a protein shake juanita g with eating his meals) Verbalize understanding of above Plan Dressing changes Home program Comments: Follow-up outpatient wound clinic July 27@ 1000 Report called and note faxed to [facility] Contact Information [facility] [address] [place] [address] Phone - Please leave a message documented in this encounter Plan of Treatment Order Schedule Name Type Priority Associated Diag noses Ordered: 07/19/2017 AMB REFERRAL TO WOUND Outpatient Routine Pressure ulcer of CLINIC Referral coccygeal region, s tage 3 documented as of this encounter Visit Diagnoses Diagnosis Pressure ulcer of coccygeal region, sta ge 3 - Primary Pressure ulcer, lower back documented in this encounter Additional Health Concerns Assessment Noted Time A Hypertension Plan of Care has been documented for t pati patient 02/12/2017 12:54 PM CDT documented as of this encounter
--- OUTSIDE RECORDS SUMMARY | 2020-03-24 13:59 | XMS REPORT | Encounter Summary ---
Author Author [facility] Organization [facility] Address Unknown Phone Unavailable Care Team Providers Care Lock Fitter Name Role Phone Claus Couch MD PCP Encounter Details Care Team Description Date Type Department Jona Doran, SCALE TECHNICIAN [address] [place] [address] 06/30/2017 [facility] Se rvices Encounter [place] [address] [place] [address] Social History Date Tobacco Use [...] Package 0 (ACCU-CHEK ACTIVE TEST) pm prn [facility] 12/29/2007 BETIMOL 0.5 % OP Drop Administer 1 0 Drop in both eyes 2 times daily. 06/29/2017 07/21/2017 oxyCODONE (OxyCONTIN) 20 Take 1 Tablet 60 Tablet 0 mg Controlled Release 12 (20 mg) by hour crush resistant mouth every tablet 12 hours Fax to [employer] [phone]. 06/29/2017 07/21/2017 LORazepam (ATIVAN) 1 mg TAKE ONE 60 Tablet 5 tablet TABLET BY MOUTH 2 TIMES A DAY. Fax to [employer] [phone]. 06/25/2017 07/05/2017 oxyCODONE-acetaminophen TAKE 2 30 Tablet 0 (PERCOCET) 10-325 mg TABLETS EVERY Tablet 4 HOURS NEEDED FOR BREAKTHRU PAIN Fax to [employer] [phone]. 05/20/2017 07/01/2017 temazepam (RESTORIL) 15 Take 1 30 Capsule 5 mg capsule Capsule (15 mg) by mouth nightly as needed for Insomnia Fax to [employer] [phone]. 05/18/2017 08/23/2017 ondansetron (ZOFRAN ODT) Place 1 [...] 5 mg tablet mouth daily at bedtime. 10/19/2016 07/07/2017 ramipril (ALTACE) 10 mg Take 1 Cap by 90 Capsule 1 capsule mouth daily. 10/02/2016 07/07/2017 bethanechol (URECHOLINE) TAKE ONE 120 Tablet 5 25 mg tablet TABLET BY MOUTH FOUR TIMES A DAY 10/02/2016 07/07/2017 pioglitazone (ACTOS) 30 Take 1 Tab by 90 Tablet 1 mg tablet mouth daily. 09/25/2016 07/07/2017 tamsulosin (FLOMAX) 0.4 TAKE ONE 30 Capsule 5 mg capsule CAPSULE BY MOUTH EVERY DAY 30 MINUTES AFTER SUPPER 09/16/2016 07/07/2017 fenofibrate Take 1 Tab by 30 Tablet 5 nanocrystallized (TRICOR) mouth daily 145 mg tablet with supper. 03/02/2016 07/21/2017 traZODone (DESYREL) 50 mg Take 1 Tab by 30 Tablet 3 tablet mouth daily at bedtime.. 11/27/2015 07/15/2017 NITROSTAT 0.4 mg Tablet, DISSOLVE 1 25 Tablet 0 Sublingual TABLET UNDER TONGUE EVERY 5 MINUTES NEEDED FOR CHEST PAIN. DO NOT EXCEED 3 DOSES. 10/07/2015 07/07/2017 fluticasone (FLONASE) 50 Administer 2 16 Gram 5 mcg/spray [place], Sprays in Suspension each nostril daily.. 08/16/2015 07/07/2017 PROAIR HFA 90 Take 2 Puffs 8.5 Gram 5 mcg/actuation inhaler by inhalation every 4 hours as needed for Shortness of Breath. 09/10/2010 04/26/2018 MULTIVITAMIN PO Take 1 Tab by 0 mouth daily with lunch. documented as of this encounter Plan of Treatment Not on filedocumented as of this encounter Procedures Comments Procedure Name Priority Date/Time Associated Diag nosis XR SHOULDER 2+ VW BILAT Routine 06/30/2017 Right shoulder pain, 10:18 AM CDT unspecified chronicity documented in this encounter Results * XR SHOULDER 2+ VW BILAT (06/30/2017 10:18 AM CDT) Specimen Impressions Performed At IMPRESSION: INTERFACE SYSTEM No acute osseous abnormality bilateral shoulders. Narrative Performed At Three views of the bilateral shoulders. INTERFACE SY STEM History: Right shoulder pain, unspecifi ed chronicity Comparison: None. FINDINGS: BONES: No acute fracture or dislocation . Diffuse osteopenia. JOINT SPACES: Mild bilateral acromiocla vicular arthropathy. The bilateral glenohumeral joint spaces are well-maintained. SOFT TISSUES: Unremarkable. Procedure Note Interface, [facility] [place] [facility] [place]coming Radiology Results - 06/30/2017 11:16 AM CDT Three views of the bilateral shoulders. History: Right shoulder pain, unspecified chronicity Comparison: None. FINDINGS: BONES: No acute fracture or dislocation. Diffuse osteopenia. JOINT SPACES: Mild bilateral acromioclavicular arthropathy. The bilateral glenohumeral joint spaces are well-maintained. SOFT TISSUES: Unremarkable. IMPRESSION IMPRESSION: No acute osseous abnormality bilateral shoulders. Performing Organization Address City/State/Zipcode Ph one Number INTERFACE SYSTEM INTERFACE SYSTEM Refer to clinic/hospital department documented in this encounter Visit Diagnoses Diagnosis Right shoulder pain, unspecified chroni city documented in this encounter Additional Health Concerns Assessment Noted Time A Hypertension Plan of Care has been documented for t pati patient 02/12/2017 12:54 PM CDT documented as of this encounter
--- OUTSIDE RECORDS SUMMARY | 2020-03-24 13:59 | XMS REPORT | Encounter Summary ---
Author Author [facility] Organization [facility] Address Unknown Phone Unavailable Care Team Providers Care Evp Name Role Phone Claus Couch MD PCP Reason for Visit * Reason Comments Medication Refill Encounter Details Care Team Description Date Type Department Claus Couch MD [address] [place] [address] 07/07/2017 Refill [facility] Primar y Care [place] [address] [place] [address] Social History Date Tobacco Use [...]
--- OUTSIDE RECORDS SUMMARY | 2020-03-24 13:59 | XMS REPORT | Encounter Summary ---
Author Author [facility] Organization [facility] Address Unknown Phone Unavailable Care Team Providers Care Ecology Teacher Name Role Phone Claus Couch MD PCP Reason for Visit * Auth/Cert Referred By Contact Referred To Contact Status Reason Specialty Diagnoses / Procedures [facility] Home Health [place] [address] [place] [address] Home Health Encounter Details Care Team Description Date Type Department Marissa Pitts RN SN - OASIS START OF CARE 07/09/[address] [facility] [address] [place] [address] Social History Date Tobacco Use [...] Reading Time Taken Comments Vital Sign 124/70 07/09/2017 4:00 PM CDT Blood Pressure 80 07/09/2017 4:00 PM CDT Pulse - - Temperature 20 07/09/2017 4:00 PM CDT Respiratory Rate 97% 07/09/2017 4:00 PM CDT Oxygen Saturation - - [...] - OASIS START OF CARE Discipline - Long Term Status Goals Interventions Problem Descriptio Start Date n Active - 2 problem interventions scheduled/documented in this visit Continuum of Care 07/09/2017 Disciplines: Long Term Active - 1 problem intervention scheduled/documented in this visit Home Safety 07/09/2017 Disciplines: Long Term Active - 1 problem intervention scheduled/documented in this visit Medications 07/09/2017 Disciplines: Long Term Active - 1 problem intervention scheduled/documented in this visit Physical Discomfort 07/09/2017 Disciplines: Long Term Active - 1 problem intervention scheduled/documented in this visit Pulse Oximetry 07/09/2017 Disciplines: Long Term Active - 1 problem intervention scheduled/documented in this visit Skilled Observation and 07/09/2017 Assessment Disciplines: Long Term Variance Visit Notes Intervention Associated Status Problem/Go al Discipline Referral Problem: Completed Continuum of Care Review Medical Problem: Completed Appointments Continuum of Care Skilled assessment risk Problem: Completed for injury Home Safety Reconciled home medications with facility discharge medication orders. Pt. is taking medications as prescribed with no discrepancies or medicatiton related problems indicated. Skilled assessment Problem: Completed medications Medication s Skilled assessment pain Problem: Completed Physical Discomfort Sn to obtain pulse ox Problem: Completed reading Pulse Oximetry Skilled observation and Problem: Completed assessment general Skilled assessment Observatio n and Assessment documented in this encounter Home Health Visit - Actions and Narratives Timed Up and Go (TUG) Test Directions: Wearing their regular footw ear, patient starts with back against the chair, arms resting on the arm rests and walking aid nearby . When clinician says "Go," patient should rise from the armed chair, stand on both feet, walk f orward 10 feet, turn around, return to the chair and sit down again. Timing should be started at the word "Go" and stopped when patient's buttocks touch the seat upon returning to the chair. The patien t may walk through the test once before being timed in order to become familiar with the test. Seconds to Complete: unable to complete Walking aid used? Unable to arise from chair safely without assistance Older adults (age 65+) who took 13.5 se conds or longer to perform the TUG were classified as fallers, with an overall correct predic tion rate of 90%. documented in this encounter
--- OUTSIDE RECORDS SUMMARY | 2020-03-24 13:59 | XMS REPORT | Encounter Summary ---
Author Author [facility] Organization [facility] Address Unknown Phone Unavailable Care Team Providers Care Director Biology Name Role Phone Claus Couch MD PCP Reason for Visit * Reason Comments Medication Refill Encounter Details Care Team Description Date Type Department Claus Couch MD [address] [place] [address] 07/15/2017 Refill [facility] Primar y Care [place] [address] [place] [address] Social History Date Tobacco Use [...]
--- OUTSIDE RECORDS SUMMARY | 2020-03-24 13:59 | XMS REPORT | Encounter Summary ---
Author Author [facility] Organization [facility] Address Unknown Phone Unavailable Care Team Providers Care Pastry Artist Name Role Phone Claus Couch MD PCP Encounter Details Care Team Description Date Type Department Claus Couch MD [address] [place] [address] 07/15/2017 Abstract [facility] Primar y Care [place] [address] [place] [address] Social History Date Tobacco Use [...]
--- OUTSIDE RECORDS SUMMARY | 2020-03-24 13:59 | XMS REPORT | Encounter Summary ---
Author Author [facility] Organization [facility] Address Unknown Phone Unavailable Care Team Providers Care Cigar Head Pegger Name Role Phone Claus Couch MD PCP Reason for Visit * Auth/Cert Referred By Contact Referred To Contact Status Reason Specialty Diagnoses / Procedures [facility] [address] [place] [address] Home Health Encounter Details Care Team Description Date Type Department Karen Up (Student), Pre Billing Clinician PT - HOME VISIT 07/15/2017 [facility] [address] [place] [address] Social History Date Tobacco Use [...] Notes Intervention Associated Status Problem/Go al Pt uses FWW today with w/c for safety. Patient uses lift chair Instruct home safety Problem: Completed Description: Home Instruct patient and Safety caregiver as needed in home and fall safety precautions through the Fall Prevention Program. Sit <> stand x5 from lift chair with the lift chair feature not used. PT establish or upgrade Problem: Completed home program PT Description: Establish Home exercise program for or Upgrade generalized LE Home strengthening. Program Patient completes amb with FWW. Older walker. Patient reports he may need a new one soon. Patient completes 40 ft of amb. Family/caregiver reports he appears to be doing better today. Pt gait training Problem: Completed Description: PT Gait Evaluate and instruct Training patient and caregiver in safe gait training on all surfaces including step/ramp training as needed in home or to exit home, full wt-bearing and using a 2WW. documented in this encounter Home Health Visit - Actions and Narratives Pt has a bed sore on buttocks. Complain s of knee pain with amb. C/o having trouble sleeping. c/o tremors in extremities documented in this encounter
--- OUTSIDE RECORDS SUMMARY | 2020-03-24 13:59 | XMS REPORT | Encounter Summary ---
Author Author [facility] Organization [facility] Address Unknown Phone Unavailable Care Team Providers Care Hydrogeology Professor Name Role Phone Claus Couch MD PCP Reason for Visit * Reason Comments Follow [facility] follow up Encounter Details Care Team Description Date Type Department Claus Couch MD [address] [place] [address] Pressure ulcer of contiguous region invo lving back, right buttock, and right hip, stage 2 (Primary Dx); Seizure disorder; Bipolar disorder, unspecified; Mixed hyperlipidemia 07/15/2017 Office Visit [facility] Primar y Care [place] [address] [place] [address] Social History Date Tobacco Use [...] Reading Time Taken Comments Vital Sign 102/62 07/15/2017 2:24 PM CDT Blood Pressure - - Pulse 36.1 C (97 F) 07/15/2017 2:24 PM CDT Temperature - - Respiratory Rate - - Oxygen Saturation - - Inhaled Oxygen Concentration 55.3 kg (122 lb) 07/15/2017 2:24 PM CDT Weight 167.6 cm (5' 6") 07/15/2017 2:24 PM CDT Height 19.69 07/15/2017 2:24 PM CDT Body Mass Index documented in this encounter Progress Notes * Claus Couch MD - 07/20/2017 8:38 AM CDT Oliverio Dalton is a 66 y.o. male History of Present Illness HPI Chief Complaint Patient presents with Follow Up dcd from [facility] and needs follow up has been doing a litlle better still working with Physical Therapy at home Now with ulcer on the buttocks for th elast two weeks Still with some trouble sleeping Review of Systems Review of Systems Constitutional: [...] pain and hematuria. Musculoskeletal: Positive for gait problem. Negative for back pain. Skin: Positive for wound. Negative for color change. Neurological: Negative for dizziness, syncope, facial asymmetry and numbness. Psychiatric/Behavioral: Negative for agitation and behavioral problems. Physical Exam Blood pressure 102/62, temperature 97 F (36.1 C), temperature source Tympan ic, height 5' 6" (1.676 m), weight 55.3 kg (122 lb). Physical Exam Constitutional: He appears well-developed and well-nourished. HENT: Head: Normocephalic and atraumatic. Cardiovascular: Normal rate, regular rhythm, normal heart sounds and intact dist al pulses. Pulmonary/Chest: Effort normal and breath sounds normal. Abdominal: Soft. Bowel sounds are normal. Genitourinary: ASSESSMENT: Encounter Diagnoses Name Primary? Pressure ulcer of contiguous region involving back, right buttock, and right hip, stage 2 Yes Seizure disorder Bipolar disorder, unspecified Mixed hyperlipidemia PLAN: Will start on wound care will need to follow up in 3 weeks documented in this encounter Plan of Treatment Not on filedocumented as of this encounter Visit Diagnoses Diagnosis Pressure ulcer of contiguous region inv olving back, right buttock, and right hip, stage 2 - Primary Seizure disorder Unspecified epilepsy without mention of intractable epilepsy Bipolar disorder, unspecified Mixed hyperlipidemia documented in this encounter Additional Health Concerns Assessment Noted Time A Hypertension Plan of Care has been documented for t pati patient 02/12/2017 12:54 PM CDT documented as of this encounter
--- OUTSIDE RECORDS SUMMARY | 2020-03-24 13:59 | XMS REPORT | Encounter Summary ---
Author Author [facility] Organization [facility] Address Unknown Phone Unavailable Care Team Providers Care Flight Test Mechanic Name Role Phone Claus Couch MD PCP Reason for Visit * Auth/Cert Referred By Contact Referred To Contact Status Reason Specialty Diagnoses / Procedures [facility] Home Health [id number] [place] [address] Home Health Encounter Details Care Team Description Date Type Department Marissa Pitts RN SN - HOME VISIT 07/16/2017 [facility] [address] [place] [address] Social History Date Tobacco Use [...] Vital Sign - - Blood Pressure 68 07/16/2017 2:45 PM CDT Pulse - - Temperature 20 07/16/2017 2:45 PM CDT Respiratory Rate 96% 07/16/2017 2:45 PM CDT Oxygen Saturation - - [...] - SN - HOME VISIT Discipline - Nursing Home Status Goals Interventions Problem Descriptio Start Date n Active - 1 problem intervention scheduled/documented in this visit Continuum of Care Monitor/ed 07/09/2017 Disciplines: ucate/rein Nursing Home force medical appointmen t compliance . Identify and facilitate appropriat e discipline referrals. Active - 4 problem interventions scheduled/documented in this visit Wound Management 07/16/2017 Disciplines: Nursing Home Active - 1 problem intervention scheduled/documented in this visit Home Safety Home 07/09/2017 Disciplines: safety Nursing Home Active - 1 problem intervention scheduled/documented in this visit Medications Management 07/09/2017 Disciplines: of home Nursing Home medication s Active - 1 problem intervention scheduled/documented in this visit Physical Discomfort Alteration 07/09/2017 Disciplines: in comfort Nursing Home Active - 1 problem intervention scheduled/documented in this visit Pulse Oximetry Skilled 07/09/2017 Disciplines: assessment Nursing Home and monitoring of O2 saturation s. Active - 1 problem intervention scheduled/documented in this visit Skilled Observation and Skilled 07/09/2017 Assessment nursing Disciplines: observatio Nursing Home n and assessment . Variance Visit Notes Intervention Associated Status Problem/Go al Review Medical Problem: Completed Appointments Description: Continuum Review medical of Care appointments with patient and caregiver. Reinforce importance of compliance with scheduled appointments. Instruct positioning Problem: Completed Wound Management Instruct wound care Problem: Completed Wound Management Skilled assessment wound Problem: Completed Wound Management Wound care Problem: Completed Wound Management Skilled assessment risk Problem: Completed for injury Home Description: Safety Assess patient's sensory perception, ability for ambulation and movement, disorientation or changes in mentation. Assess the home environment for potential hazards. Monitor ongoing for changes to patient Fall Risk Assessment. Viewed pt. medications. Pt is taking mediations as prescribed. Skilled assessment Problem: Completed medications Medication Description: [...] Home Health Visit - Actions and Narratives Notified Dr. Fraser ([employer]) of pt. vane carlin of discomfort buttock wounds. Orders received and wound care provided. Pt. reports increa sed comfort. Caregiver instructed and returned demonstration. States she can perform care daily if ne eded. documented in this encounter
--- OUTSIDE RECORDS SUMMARY | 2020-03-24 13:59 | XMS REPORT | Encounter Summary ---
Author Author [facility] Organization [facility] Address Unknown Phone Unavailable Care Team Providers Care Fisher Swordfish Name Role Phone Claus Couch MD PCP Reason for Visit * Auth/Cert Referred By Contact Referred To Contact Status Reason Specialty Diagnoses / Procedures [facility] Home Health [facility] [address] [place] [address] Home Health Encounter Details Care Team Description Date Type Department Marissa Pitts RN CASE COMMUNICATION 07/09/2017 [facility] [address] [place] [address] Social History Date Tobacco Use [...]
--- OUTSIDE RECORDS SUMMARY | 2020-03-24 13:59 | XMS REPORT | Encounter Summary ---
Author Author [facility] Organization [facility] Address Unknown Phone Unavailable Care Team Providers Care Inside Wirer Name Role Phone Claus Couch MD PCP Encounter Details Care Team Description Date Type Department Jona Doran, PAN SHAKER [address] [place] [phone] Right shoulder pain, unspecified chronic ity (Primary Dx) 06/29/2017 Orders Only [facility] [address] [address] Social History Date Tobacco Use [...] of this encounter Visit Diagnoses Diagnosis Right shoulder pain, unspecified chroni city - Primary documented in this encounter Additional Health Concerns Assessment Noted Time A Hypertension Plan of Care has been documented for t pati patient 02/12/2017 12:54 PM CDT documented as of this encounter
--- OUTSIDE RECORDS SUMMARY | 2020-03-24 13:59 | XMS REPORT | Encounter Summary ---
Author Author [facility] Organization [facility] Address Unknown Phone Unavailable Care Team Providers Care Spanish Interpreter Name Role Phone Claus Couch MD PCP Reason for Visit * Reason Comments Follow Up [facility] Encounter Details Care Team Description Date Type Department Claus Couch MD [address] [place] [address] Pressure ulcer of coccygeal region, stag e 3; Type 2 diabetes mellitus with diabetic neuropathy, without long-term current use of insulin; Chronic bronchitis, unspecified chronic bronchitis type; Seizure disorder 06/29/2017 [facility] Primar y Care Visit [place] [address] [place] [address] Social History Date Tobacco Use [...] as of this encounter Progress Notes * Claus Couch MD - 07/27/2017 7:29 AM CDT Oliverio Dalton is a 66 y.o. male Resident [facility] History of Present Illness HPI the patient denies any problems at present has been slowly improving Review of Sytems Review of Systems Constitutional: Negative for activity [...] for agitation and behavioral problems. Physical Exam Vitals Reviewed per nursing at [facility] Physical Exam Constitutional: He appears well-developed and well-nourished. HENT: Head: Normocephalic and atraumatic. Cardiovascular: Normal rate, regular rhythm, normal heart sounds and intact dist al pulses. Pulmonary/Chest: Effort normal and breath sounds normal. Abdominal: Soft. Bowel sounds are normal. ASSESSMENT: Encounter Diagnoses Name Primary? Pressure ulcer of coccygeal region, stage 3 Type 2 diabetes mellitus with diabetic neuropathy, without long-term current use of insulin Chronic bronchitis, unspecified chronic bronchitis type Seizure disorder PLAN: No new changes will continue to monitor Anticipate dc to home in the next week documented in this encounter Plan of Treatment Not on filedocumented as of this encounter Visit Diagnoses Diagnosis Pressure ulcer of coccygeal region, sta ge 3 Pressure ulcer, lower back Type 2 diabetes mellitus with diabetic neuropathy, without long-term current use of insulin Chronic bronchitis, unspecified chronic bronchitis type Seizure disorder Unspecified epilepsy without mention of intractable epilepsy documented in this encounter Additional Health Concerns Assessment Noted Time A Hypertension Plan of Care has been documented for t pati patient 02/12/2017 12:54 PM CDT documented as of this encounter
--- OUTSIDE RECORDS SUMMARY | 2020-03-24 13:59 | XMS REPORT | Encounter Summary ---
Author Author [facility] Organization [facility] Address Unknown Phone Unavailable Care Team Providers Care Manufacturing Engineer Assembly Name Role Phone Claus Couch MD PCP Reason for Referral * Eval and Treat (Routine) Referred By Contact Referred To Contact Status Reason Specialty Diagnoses / Procedures Claus Couch MD [address] [place] [address] [facility] [address] [place] [address] Closed [facility] Diagnoses Tear of right rotator cuff, unspecified tear extent Encounter Details Care Team Description Date Type Department Claus Couch MD [address] [place] [address] Tear of right rotator cuff, unspecified tear extent (Primary Dx) 07/05/2017 Orders Only [facility] Primar y Care [place] [address] [place] [address] Social History Date Tobacco Use [...] Name Type Priority Associated Diag noses Ordered: 07/05/2017 AMB REFERRAL TO HOME CARE Outpatient Routine Tear of right rotator Referral cuff, unspecified tear extent documented as of this encounter Visit Diagnoses Diagnosis Tear of right rotator cuff, unspecified tear extent - Primary documented in this encounter Additional Health Concerns Assessment Noted Time A Hypertension Plan of Care has been documented for t pati patient 02/12/2017 12:54 PM CDT documented as of this encounter
--- OUTSIDE RECORDS SUMMARY | 2020-03-24 13:59 | XMS REPORT | Encounter Summary ---
Author Author [facility] Organization [facility] Address Unknown Phone Unavailable Care Team Providers Care Blasting Clay Miner Name Role Phone Claus Couch MD PCP Reason for Visit * Reason Comments Shoulder Pain Bilat Shoulder Pain Encounter Details Care Team Description Date Type Department Jona Doran, JONNATHAN [address] [place] [address] Rotator cuff tear arthropathy of both ouldradha (Primary Dx) 06/30/2017 Office Visit [facility] Orthop edics [address] [address] Social History Date Tobacco Use [...] Oxygen Saturation - - Inhaled Oxygen Concentration 85.3 kg (188 lb) 06/30/2017 10:25 AM CDT Weight 167.6 cm (5' 6") 06/30/2017 10:25 AM CDT Height 30.34 06/30/2017 10:25 AM CDT Body Mass Index documented in this encounter Progress Notes * Jona Doran, JONNATHAN - 06/30/2017 11:11 AM CDT yefri shoulder pain. no injury. the shelter had called and wondered about mckay dubon injections. he agrees with injections. he is a rather poor historian. he gives no history of specific injury or surger y either shoulder. on exam he has some chronic LOM and weakness yefri shoulders. deconditioned state . no warmth erythema ecchymosis or joint effusion. he has functional motion with limitation. no focal neuro deficit. no radiating or neck pain xrays yefri shoulders are highly suggestive of chronic RC tears yefri with humeral a cromial articulation. and early RC arthropathy. no acute bony injury radiologically A: yefri RC tears, RC arthropathy P: the natural history of the problem was reviewed at length with the patient a nd options in treatment were discussed. questions and concerns answered. each shoulder injection subacromial with intention of effecting tendon and glenh umeral joint obviously with him having massive cuff tears 12 mg of celestone and 0.25% marcaine used both shoulders sterile technique post erior approach and tolerated well. 2cc of 02.5% marcaine also used each shoulde r same injection recheck in three mos repeat injections. documented in this encounter Plan of Treatment Not on filedocumented as of this encounter Visit Diagnoses Diagnosis Rotator cuff tear arthropathy of both mckay humphreys - Primary Traumatic arthropathy, shoulder region documented in this encounter Additional Health Concerns Assessment Noted Time A Hypertension Plan of Care has been documented for t pati patient 02/12/2017 12:54 PM CDT documented as of this encounter
--- OUTSIDE RECORDS SUMMARY | 2020-03-24 14:00 | XMS REPORT | Encounter Summary ---
Author Author [facility] Organization [facility] Address Unknown Phone Unavailable Care Team Providers Care Coffee Host Name Role Phone Claus Couch MD PCP Encounter Details Care Team Description Date Type Department Claus Couch MD [address] [place] [address] [facility], Lab Schedule 05/19/2017 [facility] Encounter Laboratory Services [address] [address] Social History Date Tobacco Use [...] Drop in both eyes 2 times daily. 05/18/2017 05/25/2017 ciprofloxacin HCl (CIPRO) Take 1 Tablet 14 Tablet 0 500 mg tablet (500 mg) by mouth 2 times daily for 7 days For urine infection. 05/18/2017 08/23/2017 ondansetron (ZOFRAN ODT) Place 1 8 Tablet 1 4 mg Tablet, Rapid Tablet (4 mg) Dissolve under tongue every 6 hours as needed for Nausea/Emesis . 05/17/2017 05/20/2017 oxyCODONE (OxyCONTIN) 20 Take 1 Tablet 60 Tablet 0 mg Controlled Release 12 (20 mg) by hour crush resistant mouth every tablet 12 hours Fax into [facility] [place] [phone]. 05/14/2017 05/20/2017 oxyCODONE-acetaminophen TAKE 2 30 Tablet 0 (PERCOCET) 10-325 mg TABLETS EVERY Tablet 4 HOURS NEEDED FOR BREAKTHRU PAIN. 04/21/2017 05/20/2017 LORazepam (ATIVAN) 1 mg TAKE ONE 60 Tablet 3 tablet TABLET BY MOUTH 2 TIMES A DAY.. 04/21/2017 05/20/2017 temazepam (RESTORIL) 15 Take 1 30 Capsule 5 mg capsule Capsule (15 mg) by mouth nightly as needed for Insomnia. 04/09/2017 10/20/2017 simvastatin (ZOCOR) 40 mg TAKE [...] 50 Administer 2 16 Gram 5 mcg/spray [place], Sprays in Suspension each nostril daily.. 08/16/2015 [...] Procedure Name Priority Date/Time Associated Diag nosis C. DIFFICILE DETECTION Routine 05/19/2017 Intesti nal infection due 1:00 PM CDT to enterotoxigenic E. coli documented in this encounter Results * CLOSTRIDIUM DIFFICILE TOXIN (05/19/2017 1:00 PM CDT) TOXIGENIC C Not Detected Not Detected [facility] - [place] Specimen Stool - Stool specimen (specimen) Narrative Performed At This assay is used to detect Toxigenic Clostridium difficile target(B gene) DNA [facility] sequences in unformed stool specimens. If toxigenic C. difficile is not [facility] detected, but clinical suspicion is hig h please consult ID for consultation and FAYE potential repeat testing. This test s hould not be used as a test of cure. 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
--- OUTSIDE RECORDS SUMMARY | 2020-03-24 14:00 | XMS REPORT | Encounter Summary ---
Author Author [facility] Organization [facility] Address Unknown Phone Unavailable Care Team Providers Care Roof Truss Detailer Name Role Phone Claus Couch MD PCP Reason for Visit * Reason Comments Nausea Vomiting Urinary Pain dark colored urine Fatigue Encounter Details Care Team Description Date Type Department Jada Fernandez MD NO ADDRESS ON FILE Dehydration (Primary Dx) 05/18/2017 Office Visit [facility] Primar y [facility] [address] [place] [address] Social History Date Tobacco Use [...] Reading Time Taken Comments Vital Sign 108/60 05/18/2017 2:50 PM CDT Blood Pressure - - Pulse 36.5 C (97.7 F) 05/18/2017 2:50 PM CDT Temperature - - Respiratory Rate - - Oxygen Saturation - - Inhaled Oxygen Concentration 81.6 kg (180 lb) 05/18/2017 2:50 PM CDT Weight 167.6 cm (5' 6") 05/18/2017 2:50 PM CDT Height 29.05 05/18/2017 2:50 PM CDT Body Mass Index documented in this encounter Progress Notes * Kaye Fernandez MD - 05/19/2017 4:47 PM CDT not seen, sent to ED documented in this encounter Plan of Treatment Not on filedocumented as of this encounter Visit Diagnoses Diagnosis Dehydration - Primary documented in this encounter Additional Health Concerns Assessment Noted Time A Hypertension Plan of Care has been documented for t he patient 02/12/2017 12:54 PM CDT documented as of this encounter
--- OUTSIDE RECORDS SUMMARY | 2020-03-24 14:00 | XMS REPORT | Encounter Summary ---
Author Author [facility] Organization [facility] Address Unknown Phone Unavailable Care Team Providers Care Utility Bill Collector Name Role Phone Claus Couch MD PCP Encounter Details Care Team Description Date Type Department Claus Couch MD [address] [place] [address] Bipolar disorder; Type 2 diabetes mellitus with diabetic neuropathy; Epilepsy without status epilepticus, not intractable 06/02/2017 [facility] [place] [address] [place] [address] Social History Date Tobacco Use [...] Associated Diag nosis CBC WITH DIFFERENTIAL Routine 06/02/2017 Type 2 d iabetes mellitus 6:15 AM CDT with diabetic neuropathy Bipolar disorder Epilepsy without status epilepticus, not intractable HEMOGLOBIN A1C Routine 06/02/2017 Type 2 diabetes mellitus 6:15 AM CDT with diabetic neuropathy Bipolar disorder Epilepsy without status epilepticus, not intractable PHENYTOIN LEVEL, FREE Routine 06/02/2017 Type 2 d iabetes mellitus 6:15 AM CDT with diabetic neuropathy Bipolar disorder Epilepsy without status epilepticus, not intractable COMPREHENSIVE METABOLIC Routine 06/02/2017 Type 2 diabetes mellitus PANEL 6:15 AM CDT with diabetic neuro wesley Bipolar disorder Epilepsy without status epilepticus, not intractable documented in this encounter Results * PHENYTOIN LEVEL, FREE (06/02/2017 6:15 AM CDT) PHENYTOIN FREE 2.2 (H) 1.0 - 2.0 mcg/mL [facility] Comment: LABORATORIES - Test Performed by: [facility] - [address] [address] Specimen Blood Performing Organization Address City/[facility] Ph one Number [facility] [phone] - [facility] LABORATORIES - [facility] * HEMOGLOBIN A1C (06/02/2017 6:15 AM CDT) HEMOGLOBIN A1C 7.3 (H) 4.8 - 5.9 % [facility] [place] EST. AVG 163 mg/dL [facility] GLUCOSE, A1C LABORATORY SERVICES - [place] Specimen Blood Performing Organization Address [facility] Ph one Number [facility] CLIA# [id number] [place] [address] [place] [address] [place] [address] * COMPREHENSIVE METABOLIC PANEL (06/02/2017 6:15 AM CDT) SODIUM 135 (L) 136 - 145 mmol/L [facility] [place] POTASSIUM 4.2 3.5 - 5.1 mmol/L [facility] [place] CHLORIDE 96 (L) 98 - 107 mmol/L [facility] [place] CO2 25 22 - 29 mmol/L [facility] [place] CALCIUM 9.0 8.8 - 10.2 mg/dL [facility] [place] BUN 14 8 - 23 mg/dL [facility] [place] CREATININE 0.57 (L) 0.67 - 1.17 mg/dL [facility] - [place] GLUCOSE 231 (H) 70 - 100 mg/dL [facility] [place] TOTAL PROTEIN 6.5 (L) 6.6 - 8.7 g/dL [facility] - [place] ALBUMIN 2.7 (L) 3.5 - 5.2 g/dL [facility] [place] BILIRUBIN TOTAL 0.3 <=1.2 mg/dL [facility] SERVICES - [facility] ALKALINE 157 (H) 40 - 129 U/L [facility] PHOSPHATASE LABORATORY SERVICES - [place] AST 26 <=41 U/L [facility] [place] ALT 16 10 - 50 U/L [facility] - [facility] FAY[facility] GFR >60 >=60 mL/min/1.73 sq [facility] Comment: meter LABORATORY eGFR has not been validated [facility] for use in the elderly (> 70 [...] result. GFR, >60 >=60 mL/min/1.73 sq [facility] meter LABORATORY SERVICES - [place] ANION GAP 14 4 - 20 mmol/L [facility] [place] Specimen Blood Performing Organization Address City/State/[facility] Ph one Number [facility] CLIA# [id number] [place] [address] [place] [address] [place] [address] * CBC WITH DIFFERENTIAL (06/02/2017 6:15 AM CDT) WBC 8.5 3.6 - 11.1 K/uL [facility] - [place] RBC 3.35 (L) 4.49 - 5.52 M/uL [facility] [place] HEMOGLOBIN 8.3 (L) 13.3 - 16.5 g/dL [facility] [place] HEMATOCRIT 25.9 (L) 40.7 - 48.9 % [facility] - [place] MCV 77.3 (L) 82.7 - 97.1 fL [facility] [place] MCH 24.8 (L) 27.1 - 32.3 pg [facility] - [place] MCHC 32.0 31.3 - 34.9 g/dL [facility] [place] RDW 14.5 11.5 - 14.7 % [facility] [place] RDW-STDEV 41.2 37.2 - 47.6 fL [facility] [place] PLATELETS 665 (H) 136 - 352 K/uL [facility] [...] GRANULOCYTES LAB[facility]ATORY [facility] - [place] NEUTROPHIL 5.87 1.54 - 7.18 K/uL [facility] ABS[facility]UTE [facility] [place] LYMPHOCYTE 1.71 0.69 - 3.61 K/uL [facility] [place] MONOCYTE 0.80 0.19 - 0.95 K/uL [facility] [place] EOSINOPHIL 0.04 0.00 - 0.44 K/uL [facility] [place] BASOPHILS 0.02 0.00 - 0.10 K/uL [facility] [place] IMMATURE 0.06 0.00 - 0.09 K/uL [facility] GRANULOCYTES [facility] ABSOLUTE [facility] - [place] Specimen Blood Performing Organization Address City/State/Zipcode Ph one Number [facility] CLIA# [id number] [place] [address] - [place] [address] [place] [address]VD documented in this encounter Visit Diagnoses Diagnosis Bipolar disorder Bipolar disorder, unspecified Type 2 diabetes mellitus with diabetic neuropathy Type II or unspecified type diabetes me llitus with neurological manifestations, not stated as uncontrolled Epilepsy without status epilepticus, no t intractable Unspecified epilepsy without mention of intractable epilepsy documented in this encounter Additional Health Concerns Assessment Noted Time A Hypertension Plan of Care has been documented for t he patient 02/12/2017 12:54 PM CDT documented as of this encounter
--- OUTSIDE RECORDS SUMMARY | 2020-03-24 14:00 | XMS REPORT | Encounter Summary ---
Author Author [facility] Organization [facility] Address Unknown Phone Unavailable Care Team Providers Care Rn Ambulatory Name Role Phone Claus Couch MD PCP Reason for Visit * Reason Comments Medication Refill Encounter Details Care Team Description Date Type Department Claus Couch MD [address] [place] [address] 06/14/2017 Refill [facility] Primar y Care [place] [address] [place] [address] Social History Date [...]
--- OUTSIDE RECORDS SUMMARY | 2020-03-24 14:00 | XMS REPORT | Encounter Summary ---
Author Author [facility] Organization [facility] Address Unknown Phone Unavailable Care Team Providers Care Cashier Clerk Name Role Phone Claus Couch MD PCP Encounter Details Care Team Description Date Type Department Junior Beal MD [address] [place] [id number] [facility], Lab Schedule 06/13/2017 [facility] Encounter Laboratory Services [address] [address] Social History Date Tobacco Use [...] Drop in both eyes 2 times daily. 06/02/2017 06/14/2017 oxyCODONE-acetaminophen TAKE 2 30 Tablet 0 (PERCOCET) 10-325 mg TABLETS EVERY Tablet 4 HOURS NEEDED FOR BREAKTHRU PAIN Fax to [facility] [phone]. 05/20/2017 06/15/2017 oxyCODONE (OxyCONTIN) 20 Take 1 Tablet 60 Tablet 0 mg Controlled Release 12 (20 mg) by hour crush resistant mouth every tablet 12 hours Fax to [facility] [phone]. 05/20/2017 06/29/2017 LORazepam (ATIVAN) 1 mg TAKE ONE 60 Tablet 3 tablet TABLET BY MOUTH 2 TIMES A DAY. Fax to [facility] [phone]. 05/20/2017 07/01/2017 temazepam (RESTORIL) 15 Take 1 30 Capsule 5 mg capsule Capsule (15 mg) by mouth nightly as needed for Insomnia Fax to [facility] [phone]. 05/18/2017 08/23/2017 ondansetron (ZOFRAN ODT) Place 1 [...] 50 Administer 2 16 Gram 5 mcg/spray [place], Sprays in Suspension each nostril daily.. 08/16/2015 [...] Associated Diag nosis URINALYSIS WITH REFLEX Routine 06/13/2017 Neuroge checo dysfunction of CULTURE 2:20 AM CDT the urinary bladder Enlarged prostate with urinary obstruction documented in this encounter Results * URINALYSIS WITH REFLEX CULTURE (06/13/2017 2:20 AM CDT) COLOR UA Yellow Pale to dark yellow [facility] [place] CLARITY UA Cloudy (A) Clear [facility] [place] SPECIFIC 1.012 1.003 - 1.035 [facility] GRAVITY [facility] [place] PH UA 8.0 5.0 - 8.0 [facility] [place] LEUKOCYTE Negative Negative [facility] ESTERASE [facility] [place] NITRITE UA Negative Negative [facility] [place] PROTEIN UA Negative Negative [facility] [place] GLUCOSE UA 1+ (A) Negative [facility] [place] KETONES UA Negative Negative [facility] [place] UROBILINOGEN UA <2.0 <2.0 mg/dL [facility] [place] BILIRUBIN UA Negative Negative [facility] [place] BLOOD UA Negative Negative [facility] [place] WBC UA 3-5 (A) 0 - 2 /hpf [facility] [place] RBC UA 0-2 0 - 2 /hpf [facility] [place] BACTERIA UA Negative Negative /hpf [facility] [place] TRIPLE PHOS Present (A)Comment: 1+ Absent [facility] [place] AMORPHOUS Present (A)Comment: 3+ Absent [facility]STAL [facility] [place] Specimen Urine - Urine specimen obtained by clean catch procedure (specimen) Performing Organization Address City/State/Zipcode Ph one Number [facility] CLIA# [id number] [place] [address] [place] [address] [place] [address] documented in this encounter Visit Diagnoses Diagnosis Neurogenic dysfunction of the urinary b ladder - Primary Neurogenic bladder, NOS Enlarged prostate with urinary obstruct ion Hypertrophy of prostate with urinary ob struction and other lower urinary tract symptoms (LUTS) documented in this encounter Additional Health Concerns Assessment Noted Time A Hypertension Plan of Care has been documented for t pati patient 02/12/2017 12:54 PM CDT documented as of this encounter
--- OUTSIDE RECORDS SUMMARY | 2020-03-24 14:00 | XMS REPORT | Encounter Summary ---
Author Author [facility] Organization [facility] Address Unknown Phone Unavailable Care Team Providers Care Silo Worker Name Role Phone Claus Couch MD PCP Reason for Visit * Reason Comments Medication Refill Encounter Details Care Team Description Date Type Department Claus Couch MD [address] [place] [address] 06/01/2017 Refill [facility] Primar y [facility] [place] [address] [place] [address] Social History Date Tobacco Use [...]
--- OUTSIDE RECORDS SUMMARY | 2020-03-24 14:00 | XMS REPORT | Encounter Summary ---
Author Author [facility] Organization [facility] Address Unknown Phone Unavailable Care Team Providers Care Insurance Appraiser Name Role Phone Claus Couch MD PCP Encounter Details Care Team Description Date Type Department Claus Couch MD [address] [place] [address] 06/14/2017 Abstract [facility] Primar y Care [place] [address] [place] [address] Social History Date [...]
--- OUTSIDE RECORDS SUMMARY | 2020-03-24 14:00 | XMS REPORT | Encounter Summary ---
Author Author [facility] Organization [facility] Address Unknown Phone Unavailable Care Team Providers Care Strategic Account Executive Name Role Phone Claus Couch MD PCP Reason for Visit * Reason Comments Medication Refill Encounter Details Care Team Description Date Type Department Claus Couch MD [address] [place] [address] 06/02/2017 Refill [facility] Primar y [facility] [place] [address] [place] [address] Social History Date Tobacco Use [...]
--- OUTSIDE RECORDS SUMMARY | 2020-03-24 14:00 | XMS REPORT | Encounter Summary ---
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 States his urine is dark and thinks he is dehydrated * Auth/Cert Referred By Contact Referred To Contact Status Reason Specialty Diagnoses / Procedures [facility] Emergency [address] [place] [address] Emergency Medicine Encounter Details Care Team Description Date Type Department Zeke Abarca MD [address] [place] [address] Cystitis without hematuria (Primary Dx); Nausea; Dry heaves 05/18/[address] [facility] Emergency Department [address] [address] Social History Date Tobacco Use [...] Signs Reading Time Taken Comments Vital Sign 134/109 05/18/2017 3:28 PM CDT Blood Pressure - - Pulse 36.6 C (97.9 F) 05/18/2017 3:28 PM CDT Temperature 20 05/18/2017 3:28 PM CDT Respiratory Rate 98% 05/18/2017 3:28 PM CDT Oxygen Saturation - - Inhaled Oxygen Concentration 85.3 kg (188 lb) 05/18/2017 3:28 PM CDT Weight 167.6 cm (5' 6") 05/18/2017 3:28 PM CDT Height 30.34 05/18/2017 3:28 PM CDT Body Mass Index documented in this encounter Discharge Instructions * Instructions* Zeke Abarca MD - 05/18/2017 Take the full course of antibiotics and check with clinic if not improving or mackenzie ving more problems I will have the clinic check and see about adding the neck to his MRI when he ge ts that done. THANK YOU FOR CHOOSING [facility]! Our goal is to provide you with the highest level of care and service. Your feed back about the positive experience and opportunities for us to better serve you is important to us. Patients will be randomly selected for a short phone survey. We sincerely hope you take a few moments to answer these regarding your recent visit. Thank you in advance for your participation as we continually strive to improve our customers experience! Follow-up with a physician of your choice as needed. [facility]) is available Wednesday through Wed 7:00am to 7:00pm. [facility] is available Wednesday 10:00am to 7:00pm and Wednesday 8:00am to 5:00pm. [facility] is available Wednesday through Wednesday from 8:00am to 5:00 pm. [facility] is available seven days a week from 7:00am to 7:00pm . You can reach any of the locations by dialing [phone] or [phone]. Thank you for choosing [facility] for your health care needs. * Attachments The following attachments cannot be sent through Care Everywhere.* NAUSEA AND VOMITING (MAORI) * UTI (URINARY TRACT INFECTION): MALE (MAORI) documented in this encounter Medications at Time [...] mouth every tablet 12 hours Fax into [place] [facility] department [phone]. 05/14/2017 05/20/2017 oxyCODONE-acetaminophen TAKE 2 30 Tablet [...] 50 Administer 2 16 Gram 5 mcg/spray Howe, Sprays in Suspension each nostril daily.. 08/16/2015 07/07/2017 PROAIR HFA 90 Take 2 Puffs 8.5 Gram 5 mcg/actuation inhaler by inhalation every 4 hours as needed for Shortness of Breath. 09/10/2010 04/26/2018 MULTIVITAMIN PO Take 1 Tab by 0 mouth daily with lunch. documented as of this encounter ED Notes * Kristina Keller RN - 05/19/2017 10:08 AM CDT Message given to Dr. Couch's office staff concerning pt's sisters request that pt have MRI of the neck. * Kristina Keller RN - 05/18/2017 4:50 PM CDT Sister to desk asking if we are going to check a "urinary tract infection" on pt . Reports that pt is suppose to be catherized every [place] the [place] [facility] but that, per sister this is not being done. Have contacted [facility] staff & reports that pt is to self-cath prn, but refuses to do this. Staff cath'd pt 2 days ago with 300 cc of urine just prior to lunch. Staff also reports that pt has had no vomiting that they were made aware of. * Kristina Keller RN - 05/18/2017 4:07 PM CDT Less than 1 minute after giving fentanyl, pt states that it is working that he h ad feeling back in his face. Pt reports that he was suppose to have had an MRI of his shoulder today but that he got scared and didn't go do the test. * Zeke Abarca MD - 05/18/2017 3:02 PM CDT HISTORY OF PRESENT ILLNESS Oliverio Dalton, a 66 y.o. male presents to the ED with a Chief Complaint of Na usea Subjective HPI Comments: He has chronic pain to right shoulder and neck as well as general muscles and joints. He complains that he has had nausea and dry heaves for 2-3 d ays but the [place] [facility] reports that he never told them about it. His sister is upset that the NH is not cathing him every day as they are suppose d to do. The NH reports he is to do it himself but they did it yesterday for him . History provided by: The patient and a relative asl interpreter used: No Arrived by: Private vehicle Arrived from: An outside facility Nausea Severity: Mild Duration: 3 days Timing: Sporadic Able to tolerate: Solids and liquids Progression: Unchanged Chronicity: Recurrent Recent urination: Normal Relieved by: None tried Worsened by: Nothing tried Associated symptoms: arthralgias (chronic), headaches and myalgias (chronic) Associated symptoms: no abdominal pain, no chills, no cough, no diarrhea, no fev er, no sore throat and no URI Risk factors: sick contacts (in a [place] [facility]) REVIEW OF SYSTEMS Review of Systems Constitutional: Negative for chills and fever. HENT: Negative for sore throat and trouble swallowing. Respiratory: Negative for cough. Gastrointestinal: Positive for nausea. Negative for abdominal pain, diarrhea and vomiting (has had dry heaves per pt). Genitourinary: Positive for difficulty urinating (chronic). Negative for dysuria . Musculoskeletal: Positive for arthralgias (chronic), myalgias (chronic) and neck pain (chronic on right side). Skin: Negative for pallor. Neurological: Positive for headaches. Psychiatric/Behavioral: The patient is not nervous/anxious. PAST MEDICAL HISTORY REVIEWED MEDICAL: Patient has a past medical history of Anxiety; Asthma; Cataract; Chronic ischem ic heart disease, unspecified; Contusion, back (08/16/03); COPD (chronic obstruct humberto pulmonary disease); Coronary artery disease; Diabetes; Glaucoma; Seizure dis order; Unspecified disease of respiratory system; Unspecified disorder of lipoid metabolism; Unspecified essential hypertension; and Wrist sprain (08/10). SURGICAL: Patient has a past surgical [...] lower urinary tract symptoms (LUTS); Magdalena rogenic bladder, NOS; Unspecified glaucoma; Bipolar disorder, unspecified; Hyper lipidemia; Tubular adenoma; Status post laparoscopic appendectomy; Umbilical her jorge without mention of obstruction or gangrene; Bradycardia; Back pain; LFT elev ation; Osteoarthritis of right knee; Carpal tunnel syndrome; Diabetes mellitus; CAD (coronary artery disease); COPD (chronic obstructive pulmonary disease); Sei zure disorder; Depression; Suicidal behavior; Status post colonoscopy; Status po st right inguinal hernia repair; Ulcers of both lower legs, limited to breakdown of skin; Cigarette dependence; Closed displaced fracture of middle phalanx of r ight little finger; Left hip pain; Hyponatremia; Frequent falls; Acute cystitis without hematuria; Hyponatremia; and Oral thrush on his problem list. ALLERGIES Codeine; Doxycycline; Penicillins; Phenobarbital; Piperacillin-tazobactam; Septr a [sulfamethoxazole-trimethoprim]; Terazosin; and Valium [diazepam] HOME MEDICATIONS Discharge Medication List as of 05/18/2017 7:04 PM START taking these medications Details ciprofloxacin HCl (CIPRO) 500 mg tablet Take 1 Tablet (500 mg) by mouth 2 times daily for 7 days For urine infection., Disp-14 Tablet, R-0 ondansetron (ZOFRAN ODT) 4 mg Tablet, Rapid Dissolve Place 1 Tablet (4 mg) under tongue every 6 hours as needed for Nausea/Emesis., Disp-8 Tablet, R-1 CONTINUE these medications which have NOT CHANGED Details oxyCODONE (OxyCONTIN) 20 mg Controlled Release 12 hour crush resistant tablet Ta ke 1 Tablet (20 mg) by mouth every 12 hours Fax into [place] emergency department [phone]., Dis p-60 Tablet, R-0 oxyCODONE-acetaminophen (PERCOCET) 10-325 mg Tablet TAKE 2 TABLETS EVERY 4 HOURS NEEDED FOR BREAKTHRU PAIN.Generic For:*PERCOCET 10-325MG patient is a reside nt at [facility], can we get a written rx please? Thank you! 05/10/2017 N O T I C E PRESCRIPTION PREVIOUSLY AUTHORIZED BY DOCTOR:DAJUAN JEFFREY CARLOS ([id number] )Disp-30 Tablet, R-0 LORazepam (ATIVAN) 1 mg tablet TAKE ONE TABLET BY MOUTH 2 TIMES A DAY.., Disp-60 Tablet, R-3 temazepam (RESTORIL) 15 mg capsule Take 1 Capsule (15 mg) by mouth nightly as ne eded for Insomnia., Disp-30 Capsule, R-5 simvastatin (ZOCOR) 40 mg tablet TAKE ONE TABLET (40MG) BY MOUTH EVERY DAY IN E EVENING, Disp-90 Tablet, R-1 NICOTINE TRANSDERMAL Apply 14 mg to skin as directed daily. SENNOSIDES ORAL Take 1 Tablet by mouth 2 times daily. esomeprazole Magnesium (NexIUM) 10 mg suspension delayed release Take 40 mg by m outh daily. ibuprofen (MOTRIN) 200 mg tablet Take 400 mg by mouth daily. FLUoxetine (PROzac) 20 mg capsule TAKE 2 CAPSULES BY MOUTH EVERY DAY., Disp-60 C apsule, R-5 isosorbide mononitrate (IMDUR) 60 mg Extended [...] Capsule (100 mg) by mouth daily at bedtime., Disp-30 Capsule, R-3 pantoprazole (PROTONIX) 40 mg Tablet, Delayed Release (E.C.) Take 1 Tablet (40 m g) by mouth daily., Disp-30 Tablet, R-5 clopidogrel (PLAVIX) 75 mg Tablet Take 1 Tab by mouth daily., Disp-30 Tablet, R- 5 ezetimibe (ZETIA) 10 mg tablet Take 1 Tab by mouth daily at bedtime., Disp-30 Ta blet, R-5 OLANZapine (ZyPREXA) 2.5 mg tablet Take 1 Tab by mouth daily at bedtime., Disp-3 0 Tablet, R-5 ramipril (ALTACE) 10 mg capsule Take 1 Cap by mouth daily., Disp-90 Capsule, R-1 bethanechol (URECHOLINE) 25 mg tablet TAKE ONE TABLET BY MOUTH FOUR TIMES A DAY, Disp-120 Tablet, R-5 pioglitazone (ACTOS) 30 mg tablet Take 1 Tab by mouth daily., Disp-90 Tablet, R- 1 tamsulosin (FLOMAX) 0.4 mg capsule TAKE ONE CAPSULE BY MOUTH EVERY DAY 30 MINUTE S AFTER SUPPER, Disp-30 Capsule, R-5 fenofibrate nanocrystallized (TRICOR) 145 mg tablet Take 1 Tab by mouth daily wi th supper., Disp-30 Tablet, R-5 fluticasone (FLOVENT HFA) 110 mcg/actuation HFA Aerosol Inhaler Take 1 Puff by i nhalation 2 times daily.., Disp-12 Gram, R-5 traZODone (DESYREL) 50 mg tablet Take 1 Tab by mouth daily at bedtime.., Disp-30 Tablet, R-3 NITROSTAT 0.4 mg Tablet, Sublingual DISSOLVE 1 TABLET UNDER TONGUE EVERY 5 MINUT ES NEEDED FOR CHEST PAIN. DO NOT EXCEED 3 DOSES., Disp-25 Tablet, R-PRN fluticasone (FLONASE) 50 mcg/spray Howe, Suspension Administer 2 Sprays in each nostril daily.., Disp-16 Gram, R-5 PROAIR HFA 90 mcg/actuation inhaler Take 2 Puffs by inhalation every 4 hours as needed for Shortness of Breath., Disp-8.5 Gram, R-5 polyethylene glycol 3350 (MIRALAX) 17 gram/dose Powder Take 1 SCOOP (17 Gram) by mouth daily Dissolve in 8 ounces of fluid and drink entire liquid., Disp-527 Gr am, R-0 blood sugar diagnostic (ACCU-CHEK ACTIVE TEST) Misc Strp In the am & pm prn, Disp-1 Package, R-0 magnesium oxide 250 mg Oral Tab Take 1 Tab by mouth 3 times daily. ASPIRIN EC 81 mg Oral TbEC Take 81 mg by mouth daily. MULTIVITAMIN PO Take 1 Tab by mouth daily with lunch. BETIMOL 0.5 % OP Drop Administer 1 Drop in both eyes 2 times daily. Objective PHYSICAL EXAM INITIAL VS BP: (!) 134/109 (05/18/171527), Heart Rate: 100 bpm (05/18/171527), Resp: 20 ( 05/18/171527), Temp: 97.9 F (36.6 C) (05/18/171527), Temp src: Oral (05/18), SpO2: 98 % (05/18/171527), Height: 5' 6" (167.6 cm) (05/18/171527), Weight: 85.3 kg (188 lb) (05/18/171527), BMI (Calculated): 30.36 (05/18/17 152 8) No LMP for male patient. Physical Exam Constitutional: He is oriented to person, place, and time. He appears well-devel oped and well-nourished. No distress. HENT: Head: Normocephalic and atraumatic. Mouth/Throat: Oropharynx is clear and moist. Neck: Trachea normal. Muscular tenderness present. No spinous process tenderness present. No tracheal deviation present. Cardiovascular: Normal rate, regular rhythm and intact distal pulses. Pulmonary/Chest: Effort normal and breath sounds normal. No stridor. No respirat ory distress. He has no wheezes. He has no rales. Abdominal: Soft. Bowel sounds are normal. He exhibits no distension. There is no tenderness. Musculoskeletal: Normal range of motion. Neurological: He is alert and oriented to person, place, and time. Skin: Skin is warm and dry. He is not diaphoretic. Nursing note and vitals reviewed. DIAGNOSTICS LAB: Labs this ED Encounter CBC WITH DIFFERENTIAL - Abnormal Result Value WBC 12.7 (*) RBC 3.88 (*) HEMOGLOBIN 10.1 (*) HEMATOCRIT 31.3 (*) MCV 80.7 (*) MCH 26.0 (*) PLATELETS 713 (*) MPV 8.2 (*) NEUTROPHILS 75 (*) LYMPHOCYTES 14 (*) NEUTROPHIL ABSOLUTE 9.51 (*) MONOCYTE ABSOLUTE 1.19 (*) MCHC 32.3 RDW 14.6 RDW-STDEV 42.7 MONOCYTES 9 EOSINOPHILS 1 BASOPHILS 0 IMMATURE GRANULOCYTES 1 LYMPHOCYTE ABSOLUTE 1.82 EOSINOPHIL ABSOLUTE 0.06 BASOPHILS ABSOLUTE 0.02 IMMATURE GRANULOCYTES ABSOLUTE 0.08 COMPREHENSIVE METABOLIC PANEL - Abnormal SODIUM 134 (*) CHLORIDE 93 (*) GLUCOSE 223 (*) ALBUMIN 3.0 (*) ALKALINE PHOSPHATASE 295 (*) POTASSIUM 4.3 CO2 23 CALCIUM 9.4 BUN 23 CREATININE 0.81 TOTAL PROTEIN 7.4 BILIRUBIN TOTAL 0.4 AST 28 ALT 22 GFR >60 GFR, >60 ANION GAP 18 URINALYSIS WITH REFLEX CULTURE - Abnormal LEUKOCYTE ESTERASE UA 1+ (*) PROTEIN UA Trace (*) KETONES UA Trace (*) UROBILINOGEN UA 2.0 (*) WBC UA 11-25 (*) BACTERIA UA 1+ (*) COLOR UA Yellow CLARITY UA Clear SPECIFIC GRAVITY UA 1.014 PH UA 6.0 NITRITE UA Negative GLUCOSE UA Negative BILIRUBIN UA Negative BLOOD UA Negative RBC UA 0-2 EPITHELIAL CELLS, URINE 0-5 HYALINE CAST 0-2 Narrative: Based on results, a urine culture has been reflexed. LIPASE - Normal LIPASE 29 URINE CULTURE RADIOLOGY: No orders to display EKG: PROCEDURES Procedures MEDICAL DECISION MAKING AND PLAN OF CARE MDM I have reviewed current: labs Labs: Mild elevation of WBC to 12.7, down from almost 16 that he was at 3 weeks ago. Chemistry stable with no acute significant abnormality and lipase ne gative. Urine with 1 + bacteria and a few WBC so will cover for UTI I have reviewed nursing notes related to past medical history, social history, a nd review of systems and agree, unless otherwise noted. Clinical Course: Check labs and urine. Give IVF with fentanyl and zofran Pt improved after medicines With mild urine infection showing on tests will cover with levaquin based on his last urine culture here he should be sensitive to that. His sister asked if the neck could be added on for his outpatient MRI and I advi sed her I would check with the dayshift staff to have hem check with Dr. Couch and Dr. Maloney at [address] about adding that. ED Course Medications Administered During the ED Stay from 05/18/2017 1502 to 05/18/2017 2 037 Date/Time Order Dose Route Action 05/18/2017 1547 ondansetron (ZOFRAN) 4 mg/2 mL injection 4 mg 4 mg IV Given 05/18/2017 1604 fentaNYL PF (SUBLIMAZE) 50 mcg/mL injection 50 mcg 50 mcg IV P ush 05/18/2017 1603 sodium chloride 0.9 % flush injection 3 mL 3 mL IV Push 05/18/2017 1845 sodium chloride 0.9 % flush injection 10 mL 10 mL IV Given 05/18/2017 1845 sodium chloride 0.9% bolus solution 1,000 mL 0 mL IV Stopped 05/18/2017 1730 sodium chloride 0.9% bolus solution 1,000 mL 1,000 mL IV New B ag 05/18/2017 1944 levoFLOXacin (LEVAQUIN) 500 mg/100 mL in D5W IVPB 500 mg 0 mg IV Stopped 05/18/2017 1844 levoFLOXacin (LEVAQUIN) 500 mg/100 mL in D5W IVPB 500 mg 500 m g IV New Bag 05/18/2017 1846 fentaNYL PF (SUBLIMAZE) 50 mcg/mL injection 50 mcg 50 mcg IV G iven 05/18/2017 1847 ondansetron (ZOFRAN) 4 mg/2 mL injection 4 mg 4 mg IV Given Discharge Medication List as of 05/18/2017 7:04 PM START taking these medications Details ciprofloxacin HCl (CIPRO) 500 mg tablet Take 1 Tablet (500 mg) by mouth 2 times daily for 7 days For urine infection., Disp-14 Tablet, R-0 ondansetron (ZOFRAN ODT) 4 mg Tablet, Rapid Dissolve Place 1 Tablet (4 mg) under tongue every 6 hours as needed for Nausea/Emesis., Disp-8 Tablet, R-1 CONTINUE these medications which have NOT CHANGED Details oxyCODONE (OxyCONTIN) 20 mg Controlled Release 12 hour crush resistant tablet Ta ke 1 Tablet (20 mg) by mouth every 12 hours Fax into [place] emergency department [phone]., Dis p-60 Tablet, R-0 oxyCODONE-acetaminophen (PERCOCET) 10-325 mg Tablet TAKE 2 TABLETS EVERY 4 HOURS NEEDED FOR BREAKTHRU PAIN.Generic For:*PERCOCET 10-325MG patient is a reside nt at [facility], can we get a written rx please? Thank you! 05/10/2017 N O T I C E PRESCRIPTION PREVIOUSLY AUTHORIZED BY DOCTOR:CARLOS RATLIFF (620 )Disp-30 Tablet, R-0 LORazepam (ATIVAN) 1 mg tablet TAKE ONE TABLET BY MOUTH 2 TIMES A DAY.., Disp-60 Tablet, R-3 temazepam (RESTORIL) 15 mg capsule Take 1 Capsule (15 mg) by mouth nightly as ne eded for Insomnia., Disp-30 Capsule, R-5 simvastatin (ZOCOR) 40 mg tablet TAKE ONE TABLET (40MG) BY MOUTH EVERY DAY IN E EVENING, Disp-90 Tablet, R-1 NICOTINE TRANSDERMAL Apply 14 mg to skin as directed daily. SENNOSIDES ORAL Take 1 Tablet by mouth 2 times daily. esomeprazole Magnesium (NexIUM) 10 mg suspension delayed release Take 40 mg by m outh daily. ibuprofen (MOTRIN) 200 mg tablet Take 400 mg by mouth daily. FLUoxetine (PROzac) 20 mg capsule TAKE 2 CAPSULES BY MOUTH EVERY DAY., Disp-60 C apsule, R-5 isosorbide mononitrate (IMDUR) 60 mg Extended [...] Capsule (100 mg) by mouth daily at bedtime., Disp-30 Capsule, R-3 pantoprazole (PROTONIX) 40 mg Tablet, Delayed Release (E.C.) Take 1 Tablet (40 m g) by mouth daily., Disp-30 Tablet, R-5 clopidogrel (PLAVIX) 75 mg Tablet Take 1 Tab by mouth daily., Disp-30 Tablet, R- 5 ezetimibe (ZETIA) 10 mg tablet Take 1 Tab by mouth daily at bedtime., Disp-30 Ta blet, R-5 OLANZapine (ZyPREXA) 2.5 mg tablet Take 1 Tab by mouth daily at bedtime., Disp-3 0 Tablet, R-5 ramipril (ALTACE) 10 mg capsule Take 1 Cap by mouth daily., Disp-90 Capsule, R-1 bethanechol (URECHOLINE) 25 mg tablet TAKE ONE TABLET BY MOUTH FOUR TIMES A DAY, Disp-120 Tablet, R-5 pioglitazone (ACTOS) 30 mg tablet Take 1 Tab by mouth daily., Disp-90 Tablet, R- 1 tamsulosin (FLOMAX) 0.4 mg capsule TAKE ONE CAPSULE BY MOUTH EVERY DAY 30 MINUTE S AFTER SUPPER, Disp-30 Capsule, R-5 fenofibrate nanocrystallized (TRICOR) 145 mg tablet Take 1 Tab by mouth daily wi th supper., Disp-30 Tablet, R-5 fluticasone (FLOVENT HFA) 110 mcg/actuation HFA Aerosol Inhaler Take 1 Puff by i nhalation 2 times daily.., Disp-12 Gram, R-5 traZODone (DESYREL) 50 mg tablet Take 1 Tab by mouth daily at bedtime.., Disp-30 Tablet, R-3 NITROSTAT 0.4 mg Tablet, Sublingual DISSOLVE 1 TABLET UNDER TONGUE EVERY 5 MINUT ES NEEDED FOR CHEST PAIN. DO NOT EXCEED 3 DOSES., Disp-25 Tablet, R-PRN fluticasone (FLONASE) 50 mcg/spray Howe, Suspension Administer 2 Sprays in each nostril daily.., Disp-16 Gram, R-5 PROAIR HFA 90 mcg/actuation inhaler Take 2 Puffs by inhalation every 4 hours as needed for Shortness of Breath., Disp-8.5 Gram, R-5 polyethylene glycol 3350 (MIRALAX) 17 gram/dose Powder Take 1 SCOOP (17 Gram) by mouth daily Dissolve in 8 ounces of fluid and drink entire liquid., Disp-527 Gr am, R-0 blood sugar diagnostic (ACCU-CHEK ACTIVE TEST) Misc Strp In the am & pm prn, Disp-1 Package, R-0 magnesium oxide 250 mg Oral Tab Take 1 Tab by mouth 3 times daily. ASPIRIN EC 81 mg Oral TbEC Take 81 mg by mouth daily. MULTIVITAMIN PO Take 1 Tab by mouth daily with lunch. BETIMOL 0.5 % OP Drop Administer 1 Drop in both eyes 2 times daily. LAST VS BP: (!) 134/109 (05/18/171527), Heart Rate: 100 bpm (05/18/171527), Resp: 20 ( 05/18/171527), Temp: 97.9 F (36.6 C) (05/18/171527), Temp src: Oral (05/18), SpO2: 98 % (05/18/171527) CLINICAL IMPRESSION Final diagnoses: [N30.90] Cystitis without hematuria (Primary) [R11.0] Nausea [R11.10] Dry heaves DISPOSITION, EDUCATION AND MEDICATION RECONCILIATION Medications reconciled. See after visit summary for patient education on discha rged patients. ATTESTATION STATEMENTS documented in this encounter Plan of Treatment Not on filedocumented as of this encounter Procedures Comments Procedure Name Priority Date/Time Associated Diag nosis URINALYSIS WITH REFLEX Stat 05/18/2017 CULTURE 5:35 PM CDT URINE CULTURE Routine 05/18/2017 5:35 PM CDT CBC WITH DIFFERENTIAL Stat 05/18/2017 4:03 PM CDT LIPASE Stat 05/18/2017 4:03 PM CDT COMPREHENSIVE METABOLIC Stat 05/18/2017 PANEL 4:03 PM CDT documented in this encounter Results * URINE CULTURE (05/18/2017 5:35 PM CDT) Specimen Urine - Urine specimen obtained by clean catch procedure (specimen) Narrative Performed At [facility] See scanned report, performed by Zhanna Kaur. [facility] [place] Performing Organization Address City/State/Zipcode Ph one Number [facility] CLIA# [id number] [place] [address] - [place] [address] [place] [address] * URINALYSIS WITH REFLEX CULTURE (05/18/2017 5:35 PM CDT) COLOR UA Yellow Pale to dark yellow [facility] [place] CLARITY UA Clear Clear [facility] [place] SPECIFIC 1.014 1.003 - 1.035 [facility] GRAVITY [facility] [place] PH UA 6.0 5.0 - 8.0 [facility] [place] LEUKOCYTE 1+ (A) Negative [facility] ESTERASE [facility] [place] NITRITE UA Negative Negative [facility] [place] PROTEIN UA Trace (A) Negative [facility] Comment: LABORATORY For patients with SERVICES - [facility] 'trace' results, consider [facility] ordering a culture and sensitivity if clinically indicated. GLUCOSE UA Negative Negative [facility] [place] KETONES UA Trace (A) Negative [facility] [place] UROBILINOGEN UA 2.0 (A) <2.0 mg/dL [facility] [place] BILIRUBIN UA Negative Negative [facility] [place] BLOOD UA Negative Negative [facility] [place] WBC UA 11-25 (A) 0 - 2 /hpf [facility] [place] RBC UA 0-2 0 - 2 /hpf [facility] [place] BACTERIA UA 1+ (A) Negative /hpf [facility] [place] EPITHELIAL 0-5 0 - 5 /hpf [facility] CELLS, URINE [facility]ORY [facility] - [place] HYALINE CAST 0-2 None Seen, 0-2 /lpf [facility] [place] Specimen Urine - Urine specimen obtained by clean catch procedure (specimen) Narrative Performed At Based on results, a urine culture has been reflexed. [facility] [place] Performing Organization Address [facility] Ph one Number [facility] CLIA# [id number] [place] [address] - [address] * LIPASE (05/18/2017 4:03 PM CDT) LIPASE 29 13 - 60 U/L [facility] [place] Specimen Blood Performing Organization Address [facility] Ph one Number [facility] CLIA# [id number] [place] [address] [address] * COMPREHENSIVE METABOLIC PANEL (05/18/2017 4:03 PM CDT) SODIUM 134 (L) 136 - 145 mmol/L [facility] [place] POTASSIUM 4.3 3.5 - 5.1 mmol/L [facility] CHLORIDE 93 (L) 98 - 107 mmol/L [facility] [place] CO2 23 22 - 29 mmol/L [facility] [place] CALCIUM 9.4 8.8 - 10.2 mg/dL [facility] [place] BUN 23 8 - 23 mg/dL [facility] CREATININE 0.81 0.67 - 1.17 mg/dL [facility] [place] GLUCOSE 223 (H) 70 - 100 mg/dL [facility] TOTAL PROTEIN 7.4 6.6 - 8.7 g/dL [facility] [place] ALBUMIN 3.0 (L) 3.5 - 5.2 g/dL [facility] BILIRUBIN TOTAL 0.4 <=1.2 mg/dL [facility] ALKALINE 295 (H) 40 - 129 U/L [facility] [place] AST 28 <=41 U/L [facility] ALT 22 10 - 50 U/L [facility] GFR >60 >=60 mL/min/1.73 sq [facility] Comment: meter LABORATORY eGFR has not been validated [facility] for use in the elderly (> 70 [...] result. GFR, >60 >=60 mL/min/1.73 sq [facility] [place] [facility] [place] ANION GAP 18 4 - 20 mmol/L [facility] [place] Specimen Blood Performing Organization Address City/State/[facility] Ph one Number [facility] CLIA# [id number] [place] 667 01 - [place] [address] [facility] * CBC WITH DIFFERENTIAL (05/18/2017 4:03 PM CDT) WBC 12.7 (H) 3.6 - 11.1 K/uL [facility] [place] RBC 3.88 (L) 4.49 - 5.52 M/uL [facility] [place] HEMOGLOBIN 10.1 (L) 13.3 - 16.5 g/dL [facility] [place] HEMATOCRIT 31.3 (L) 40.7 - 48.9 % [facility] [place] MCV 80.7 (L) 82.7 - 97.1 fL [facility] [place] MCH 26.0 (L) 27.1 - 32.3 pg [facility] [place] MCHC 32.3 31.3 - 34.9 g/dL [facility] [place] RDW 14.6 11.5 - 14.7 % [facility] [place] RDW-STDEV 42.7 37.2 - 47.6 fL [facility] [place] PLATELETS 713 (H) 136 - 352 K/uL [facility] [place] MPV 8.2 (L) 8.6 - 11.8 fL [facility] [place] NEUTROPHILS 75 (H) 44 - 74 % [facility] [place] LYMPHOCYTES 14 (L) 16 - 44 % [facility] [place] MONOCYTES 9 4 - 11 % [facility] [place] EOSINOPHILS 1 0 - 6 % [facility] [place] BASOPHILS 0 0 - 1 % [facility] [place] IMMATURE 1 0 - 1 % [facility]UL[facility] [place] NEUTROPHIL 9.51 (H) 1.54 - 7.18 K/uL [facility] [place] LYMPHOCYTE 1.82 0.69 - 3.61 K/uL [facility] [place] MONOCYTE 1.19 (H) 0.19 - 0.95 K/uL [facility] [...] Ph one Number [facility] CLIA# [id number] [place] [address] documented in this encounter Visit Diagnoses Diagnosis Cystitis without hematuria - Primary Cystitis, unspecified Nausea Nausea alone Dry heaves Vomiting alone documented in this encounter Administered Medications Action Date Dose Rate Site Medication Order MAR Action 05/18/2017 4:04 PM CDT 50 mcg fentaNYL PF (SUBLIMAZE) 50 mcg/mL Push injection 50 mcg 50 mcg, IV, ONE TIME ONLY, 1 dose, 05/18/17 at 1600, Routine 05/18/2017 6:46 PM CDT 50 mcg fentaNYL PF (SUBLIMAZE) 50 mcg/mL Given injection 50 mcg 50 mcg, IV, ONE TIME ONLY, 1 dose, 05/18/17 at 1845, Routine 05/18/2017 6:44 PM CDT 500 mg 100 mL/hr levoFLOXacin (LEVAQUIN) 500 mg/100 mL in New Bag D5W IVPB 500 mg 500 mg, IV, ONE TIME ONLY, 1 dose, 05/18/17 at 1815, Routine, Antibiotic Indication: Urinary Tract Infection(UTI ) / Infection 05/18/2017 3:47 PM CDT 4 mg ondansetron (ZOFRAN) 4 mg/2 mL injection Given 4 mg 4 mg, IV, ONE TIME ONLY, 1 dose, Wed05/18/17 at 1545, Routine 05/18/2017 6:47 PM CDT 4 mg ondansetron (ZOFRAN) 4 mg/2 mL injection Given 4 mg 4 mg, IV, ONE TIME ONLY, 1 dose, Wed05/18/17 at 1845, Routine 05/18/2017 6:45 PM CDT 10 mL sodium chloride 0.9 % flush injection 10 Given mL 10 mL, IV, SEE ADMIN INSTRUCTIONS, Starting Wed05/18/17 at 1719, Until Wed05/18/17 at 2213, Routine 05/18/2017 4:03 PM CDT 3 mL sodium chloride 0.9 % flush injection 3 Push mL 3 mL, IV, ONE TIME ONLY, 1 dose, Wed05/18/17 at 1615, Routine 05/18/2017 5:30 PM CDT 1,000 mL 2000 mL/hr sodium chloride 0.9% bolus solution New Bag 1,000 mL 1,000 mL, IV, ONE TIME ONLY, 1 dose, Tu e 7/11/17 at 1730, at 2,000 mL/hr, Administer over 30 Minutes, Routine documented in this encounter Additional Health Concerns Assessment Noted Time A Hypertension Plan of Care has been documented for t pati patient 02/12/2017 12:54 PM CDT documented as of this encounter
--- OUTSIDE RECORDS SUMMARY | 2020-03-24 14:00 | XMS REPORT | Encounter Summary ---
Author Author [facility] Organization [facility] Address Unknown Phone Unavailable Care Team Providers Care Brand Development Manager Name Role Phone Claus Couch MD PCP Reason for Visit * Reason Comments Follow Up Encounter Details Care Team Description Date Type Department Claus Couch MD [address] [place] [address] Neurogenic bladder (Primary Dx); Seizure; Bipolar disorder, unspecified; Type 2 diabetes mellitus with diabetic neuropathy, without long-term current use of insulin; Chronic bronchitis, unspecified chronic bronchitis type; Cigarette dependence 06/01/2017 [facility] Primar y Care Visit [place] [address] [place] [address] Social History Date Tobacco Use [...] Progress Notes * Claus Couch MD - 06/02/2017 7:48 AM CDT Oliverio Dalton is a 66 y.o. male Resident [facility] History of Present Illness HPI the patient has been having increased pain has been taking the pain meds now wit h pain "lightning" thru the feet Review of Sytems Review of Systems Constitutional: [...] flank pain and hematuria. Musculoskeletal: Positive for arthralgias, gait problem and joint swelling. Nega tive for back pain. Skin: Negative for color change. Neurological: Negative for dizziness, syncope, facial asymmetry and numbness. Psychiatric/Behavioral: Negative for agitation and behavioral problems. Physical Exam Vitals Reviewed per nursing at long-term Physical Exam Constitutional: He appears well-developed and well-nourished. HENT: Head: Normocephalic and atraumatic. Cardiovascular: Normal rate, regular rhythm, normal heart sounds and intact dist al pulses. Pulmonary/Chest: Effort normal and breath sounds normal. Abdominal: Soft. Bowel sounds are normal. ASSESSMENT: Encounter Diagnoses Name Primary? Seizure Bipolar disorder, unspecified Type 2 diabetes mellitus with diabetic neuropathy, without long-term current use of insulin Chronic bronchitis, unspecified chronic bronchitis type Neurogenic bladder Yes Cigarette dependence PLAN: Increase gabapentin to 300 mg documented in this encounter Plan of Treatment Not on filedocumented as of this encounter Visit Diagnoses Diagnosis Neurogenic bladder - Primary Neurogenic bladder, NOS Seizure Other convulsions Bipolar disorder, unspecified Type 2 diabetes mellitus with diabetic neuropathy, without long-term current use of insulin Chronic bronchitis, unspecified chronic bronchitis type Cigarette dependence Tobacco use disorder documented in this encounter Additional Health Concerns Assessment Noted Time A Hypertension Plan of Care has been documented for t he patient 02/12/2017 12:54 PM CDT documented as of this encounter
--- OUTSIDE RECORDS SUMMARY | 2020-03-24 14:00 | XMS REPORT | Encounter Summary ---
Author Author [facility] Organization [facility] Address Unknown Phone Unavailable Care Team Providers Care Datapower Developer Name Role Phone Claus Couch MD PCP Reason for Visit * Reason Comments Medication Refill Encounter Details Care Team Description Date Type Department Claus Couch MD [address] [place] [address] 06/15/2017 Refill [facility] Primar y Care [place] [address] [place] [address] Social History Date Tobacco Use [...]
--- OUTSIDE RECORDS SUMMARY | 2020-03-24 14:00 | XMS REPORT | Encounter Summary ---
Author Author [facility] Organization [facility] Address Unknown Phone Unavailable Care Team Providers Care Diagnostic Technologist Name Role Phone Claus Couch MD PCP Encounter Details Care Team Description Date Type Department Claus Couch MD [address] [place] [address] Urinary tract infection 06/01/2017 Lab Requisition [facility] [place] [address] [place] [address] Social History Date Tobacco Use [...] Associated Diag nosis URINALYSIS WITH REFLEX Routine 06/01/2017 Urinary tract infection CULTURE 7:30 AM CDT documented in this encounter Results * URINALYSIS WITH REFLEX CULTURE (06/01/2017 7:30 AM CDT) COLOR UA Yellow Pale to dark yellow [facility] [place] CLARITY UA Clear Clear [facility] [place] SPECIFIC 1.014 1.003 - 1.035 [facility] GRAVITY [facility] [place] PH UA 6.0 5.0 - 8.0 [facility] [place] LEUKOCYTE Trace (A) Negative [facility] ESTERASE UA Comment: LABORATORY For patients with SERVICES - [facility] 'trace' results, consider FAYE ordering a culture and sensitivity if clinically indicated. NITRITE UA Negative Negative [facility] [place] PROTEIN UA Trace (A) Negative [facility] Comment: LABORATORY For patients with SERVICES - [facility] 'trace' results, consider FAYE ordering a culture and sensitivity if clinically indicated. GLUCOSE UA 1+ (A) Negative [facility] [place] KETONES UA Negative Negative [facility] [place] UROBILINOGEN UA <2.0 <2.0 mg/dL [facility] [place] BILIRUBIN UA Negative Negative [facility] [place] BLOOD UA Negative Negative [facility] [place] WBC UA 0-2 0 - 2 /hpf [facility] [place] EPITHELIAL 0-5 0 - 5 /hpf [facility] URINE [facility] [place] HYALINE CAST 0-2 None Seen, 0-2 /lpf [facility] [place] Specimen Urine - Urine specimen obtained by clean catch procedure (specimen) Performing Organization Address City/State/[place] Ph one Number [facility] CLIA# [id number] [place] [address] - [place] [address] [place] [address] documented in this encounter Visit Diagnoses Diagnosis Urinary tract infection Urinary tract infection, site not speci fied documented in this encounter Additional Health Concerns Assessment Noted Time A Hypertension Plan of Care has been documented for t pati patient 02/12/2017 12:54 PM CDT documented as of this encounter
--- OUTSIDE RECORDS SUMMARY | 2020-03-24 14:00 | XMS REPORT | Encounter Summary ---
Author Author [facility] Organization [facility] Address Unknown Phone Unavailable Care Team Providers Care Line Up Machine Operator Name Role Phone Claus Couch MD PCP Reason for Visit * Reason Comments Medication Refill Encounter Details Care Team Description Date Type Department Claus Couch MD [address] [place] [address] 05/20/2017 Refill [facility] Primar y Care [place] [address] [place] [address] Social History Date Tobacco Use [...]
--- OUTSIDE RECORDS SUMMARY | 2020-03-24 14:00 | XMS REPORT | Encounter Summary ---
Author Author [facility] Organization [facility] Address Unknown Phone Unavailable Care Team Providers Care Director Global Intelligence Name Role Phone Claus Couch MD PCP Reason for Visit * Auth/Cert Referred By Contact Referred To Contact Status Reason Specialty Diagnoses / Procedures [facility] [place] [address] [place] [address] Home Health Encounter Details Care Team Description Date Type Department Mel Miranda RN SN - NON OASIS DISCHARGE 05/21/2017 [facility] [address] [place] [address] Social History Date Tobacco Use [...] Care Plan Visit Type - SN - NON OASIS DISCHARGE Discipline - Long-Term Status Goals Interventions Problem Descriptio Start Date n Active - 1 problem intervention scheduled/documented in this visit Physical Discomfort Alteration 03/25/2017 Disciplines: in comfort Long-Term Active - 1 problem intervention scheduled/documented in this visit Pulse Oximetry Skilled 03/25/2017 Disciplines: assessment Long-Term and monitoring of O2 saturation s. Active - 1 problem intervention scheduled/documented in this visit Skilled Observation and Skilled 03/25/2017 Assessment nursing Disciplines: observatio Long-Term n and [...] Oximetry Monitor and record O2 saturation when sitting. Evaluate the effectiveness of current therapy, and notify physician of the need for modifications to the treatment plan. Skilled observation and Problem: Scheduled assessment general Skilled assessment Observatio Description: n and SN to perform general Assessment assessment to include vital signs and temperature. General assessment of systems: pulmonary, cardiovascular, neurologic, gastrointestinal, hematologic, musculoskeletal, renal/urinary and integumentary and report any abnormalities or concerns to the physician. documented in this encounter Home Health Visit - Actions and Narratives Patient is still in detention. documented in this encounter
--- OUTSIDE RECORDS SUMMARY | 2020-03-24 14:01 | XMS REPORT | Encounter Summary ---
Author Author [facility] Organization [facility] Address Unknown Phone Unavailable Care Team Providers Care Insurance Sales Supervisor Name Role Phone Claus Couch MD PCP Reason for Visit * Outpatient Services (Routine) Referred By Contact Referred To Contact Status Reason Specialty Diagnoses / Procedures Con Maloney Jr., DO [address] [address] [facility] [address] [place] [address] Closed Diagnoses Acute pain of right shoulder P rocedures MRI SHOULDER WO CONTRAST RIGHT Encounter Details Care Team Description Date Type Department Con Maloney Jr., DO [address] [address] Canceled (Other) 05/18/2017 [facility] F ort Encounter [facility] [address] [place] [address] Social History Date Tobacco Use [...] hours Fax into [facility] [place] [phone]. 05/14/2017 05/20/2017 oxyCODONE-acetaminophen TAKE 2 30 Tablet [...] 50 Administer 2 16 Gram 5 mcg/spray [place], Sprays in Suspension each nostril daily.. 08/16/2015 07/07/2017 PROAIR HFA 90 Take 2 Puffs 8.5 Gram 5 mcg/actuation inhaler by inhalation every 4 hours as needed for Shortness of Breath. 09/10/2010 04/26/2018 MULTIVITAMIN PO Take 1 Tab by 0 mouth daily with lunch. documented as of this encounter Plan of Treatment Not on filedocumented as of this encounter Visit Diagnoses Diagnosis Acute pain of right shoulder documented in this encounter Additional Health Concerns Assessment Noted Time A Hypertension Plan of Care has been documented for t pati patient 02/12/2017 12:54 PM CDT documented as of this encounter
--- OUTSIDE RECORDS SUMMARY | 2020-03-24 14:01 | XMS REPORT | Encounter Summary ---
Author Author [facility] Organization [facility] Address Unknown Phone Unavailable Care Team Providers Care Jewel Stripper Name Role Phone Claus Couch MD PCP Reason for Visit * Reason Comments Medication Refill Encounter Details Care Team Description Date Type Department Claus Couch MD [address] [place] [address] 05/12/2017 Refill [facility] Primar y Care [place] [address] [place] [address] Social History Date Tobacco Use [...]
--- OUTSIDE RECORDS SUMMARY | 2020-03-24 14:01 | XMS REPORT | Encounter Summary ---
Author Author [facility] Organization [facility] Address Unknown Phone Unavailable Care Team Providers Care Facilities Officer Name Role Phone Claus Couch MD PCP Encounter Details Care Team Description Date Type Department Claus Couch MD [address] [place] [address] 04/26/2017 Abstract [facility] Primar y Care [place] [address] [place] [address] Social History Date Tobacco Use [...]
--- OUTSIDE RECORDS SUMMARY | 2020-03-24 14:01 | XMS REPORT | Encounter Summary ---
Author Author [facility] Organization [facility] Address Unknown Phone Unavailable Care Team Providers Care Subassembly Supervisor Name Role Phone Claus Couch MD PCP Reason for Visit * Reason Comments Medication Refill Encounter Details Care Team Description Date Type Department Claus Couch MD [address] [place] [address] 05/07/2017 Refill [facility] Primar y Care [place] [address] [place] [address] Social History Date Tobacco Use [...]
--- OUTSIDE RECORDS SUMMARY | 2020-03-24 14:01 | XMS REPORT | Encounter Summary ---
Author Author [facility] Organization [facility] Address Unknown Phone Unavailable Care Team Providers Care Church Official Name Role Phone Claus Couch MD PCP Reason for Visit * Reason Comments Medication Refill Encounter Details Care Team Description Date Type Department Claus Couch MD [address] [place] [address] 05/10/2017 Refill [facility] Primar y Care [place] [address] [place] [address] Social History Date Tobacco Use [...]
--- OUTSIDE RECORDS SUMMARY | 2020-03-24 14:01 | XMS REPORT | Encounter Summary ---
Author Author [facility] Organization [facility] Address Unknown Phone Unavailable Care Team Providers Care Auto Refinisher Name Role Phone Claus Couch MD PCP Reason for Visit * Reason Comments Medication Refill Encounter Details Care Team Description Date Type Department Claus Couch MD [address] [place] [address] 05/14/2017 Refill [facility] Primar y Care [place] [address] [place] [address] Social History Date Tobacco Use [...]
--- OUTSIDE RECORDS SUMMARY | 2020-03-24 14:01 | XMS REPORT | Encounter Summary ---
Author Author [facility] Organization [facility] Address Unknown Phone Unavailable Care Team Providers Care Prosthetics Assistant Name Role Phone Claus Couch MD PCP Reason for Visit * Reason Comments Medication Refill Encounter Details Care Team Description Date Type Department Claus Couch MD [address] [place] [address] 05/17/2017 Refill [facility] Primar y Care [place] [address] [place] [address] Social History Date Tobacco Use [...]
--- OUTSIDE RECORDS SUMMARY | 2020-03-24 14:01 | XMS REPORT | Encounter Summary ---
Author Author [facility] Organization [facility] Address Unknown Phone Unavailable Care Team Providers Care Marketing Finance Manager Name Role Phone Claus Couch MD PCP Reason for Visit * Auth/Cert Referred By Contact Referred To Contact Status Reason Specialty Diagnoses / Procedures [facility] Emergency [address] [place] [address] Emergency Medicine Encounter Details Care Team Description Date Type Department Claus Couch MD [address] [place] [address] Acute cystitis without hematuria 04/19/2017 [facility] - Encounter [facility] 04/21/2017 [address] [place] [address] Social History Date Tobacco Use [...] Signs Reading Time Taken Comments Vital Sign 122/70 04/21/2017 7:07 AM CDT Blood Pressure 79 04/21/2017 9:23 AM CDT Pulse 37.2 C (99 F) 04/21/2017 7:07 AM CDT Temperature 20 04/21/2017 9:23 AM CDT Respiratory Rate 99% 04/21/2017 9:23 AM CDT Oxygen Saturation - - Inhaled Oxygen Concentration 82.3 kg (181 lb 6.4 oz) 04/19/2017 1:37 PM CDT Weight 167.6 cm (5' 6") 04/19/2017 1:37 PM CDT Height 29.28 04/19/2017 1:37 PM CDT Body Mass Index documented in this encounter Discharge Summaries * Odell Casillas Physical Therapist - 04/21/2017 10:16 AM CDT [facility] Inpatient Physical Therapy - Discharge Summary - Acute Care Oliverio Dalton Discharge Date: 04-21-17 Treatments Recieved: Transfer Training, Bed Mobility Training, Ther. Ex and Safety Discharged to: Assisted/Skilled Care Follow-Up Services Recommendations: Physical Therapy Recommend the following treatments continue: Strengthening, Balance Retraining, Gait and Safety Functional Skill Functional Level Comment Goal Met? Ambulation did not perform Pain with wt bearing,left LE movement no Transfers moderate assistance Sit to stand no Bed Mobility supervision Supine to sit yes Stairs N/A N/A n/a Home exercise plan was not given - will continue therapy at shelter or [facility] Odell Casillas Physical Therapist 1 0:24 AM CDT * Claus Couch MD - 04/21/2017 8:40 AM CDT [facility] Medical Discharge Summary Oliverio Dalton 66 y.o. male 1950 CSN: [id number] Date of Admission: 04/19/2017 Date of Discharge: 04/21/2017 Discharging Physician: Claus Couch MD PCP: Claus Couch MD LOS: 2 days Code Status at Discharge: Full Code Dispo: Assisted Labs and studies from this hospitalization needing follow up: CBC and Comprehensive Metabolic Panel (CMP) in 1 week Follow-up: You must follow up with Claus Couch MD in skilled nursing Discharge Diagnoses and Relevant Hospital Course: Active Hospital Problems Diagnosis Acute cystitis without hematuria Hyponatremia Frequent falls Left hip pain Seizure Resolved Hospital Problems Diagnosis Date Resolved No resolved problems to display. Oliverio Dalton is a 66 y.o. male who was admitted to [facility] on 04/19/20 17 and found to have a principle diagnosis of Uti with falls the patient with in creased weakness history of seizures but has been stable at present has been on levaquin will need placement secondary to weakness and falls for Physical Therap y and strenghtning. Discharge medications and new prescriptions: Medication List START taking these medications ciprofloxacin HCl 500 mg tablet Commonly known as: CIPRO Take 1 Tablet (500 mg) by mouth 2 times daily for 3 days. Signed by: Claus Couch Quantity: 6 Tablet Refills: 0 nystatin 100,000 unit/mL suspension Commonly known as: MYCOSTATIN Take 5 mL (500,000 Units) by mouth 4 times daily for 5 days. Signed by: Claus Couch Quantity: 100 mL Refills: 0 oxyCODONE 10 mg Controlled Release 12 hour crush resistant tablet Commonly known as: OxyCONTIN Take 1 Tablet (10 mg) by mouth every 12 hours. Max Daily Amount: 20 mg Signed by: Claus Couch Quantity: 60 Tablet Refills: 0 CHANGE how you take these medications oxyCODONE-acetaminophen 10-325 mg Tablet Commonly known as: PERCOCET What changed: - how much to take - when to take this - reasons to take this Take 2 Tablets by mouth every 4 hours as needed for Pain, Break-Through. Max Consuelo ly Amount: 12 Tablets Signed by: Claus Couch Quantity: 60 Tablet Refills: 0 CONTINUE taking these medications Aspirin EC 81 mg Tablet, Delayed Release (E.C.) Take 81 mg by mouth daily. Refills: 0 Generic drug: aspirin bethanechol 25 mg tablet Commonly known as: URECHOLINE TAKE ONE TABLET BY MOUTH FOUR TIMES A DAY Signed by: Neyda Redmond Quantity: 120 Tablet Refills: 5 BETIMOL 0.5 % solution Administer 1 Drop in both eyes 2 times daily. Refills: 0 Generic drug: timolol blood sugar diagnostic Strip Commonly known as: ACCU-CHEK ACTIVE TEST In the am & pm prn Signed by: Sybil Henry Quantity: 1 Package Refills: 0 clopidogrel 75 mg Tablet Commonly known as: PLAVIX Take 1 Tab by mouth daily. Signed by: Claus Couch Quantity: 30 Tablet Refills: 5 DILANTIN EXTENDED 100 mg extended release capsule Take 200 mg by mouth 2 times daily . Refills: 0 Generic drug: phenytoin sodium esomeprazole Magnesium 10 mg suspension delayed release Commonly known as: NexIUM Take 40 mg by mouth daily. Refills: 0 ezetimibe 10 mg tablet Commonly known as: ZETIA Take 1 Tab by mouth daily at bedtime. Signed by: Claus Couch Quantity: 30 Tablet Refills: 5 fenofibrate nanocrystallized 145 mg tablet Commonly known as: TRICOR Take 1 Tab by mouth daily with supper. Signed by: Claus Couch Quantity: 30 Tablet Refills: 5 FLUoxetine 20 mg capsule Commonly known as: PROzac TAKE 2 CAPSULES BY MOUTH EVERY DAY. Signed by: Claus Couch Quantity: 60 Capsule Refills: 5 * fluticasone 50 mcg/spray Carbon, Suspension Commonly known as: FLONASE Administer 2 Sprays in each nostril daily.. Signed by: Claus Couch Quantity: 16 Gram Refills: 5 * fluticasone 110 mcg/actuation HFA Aerosol Inhaler Commonly known as: FLOVENT HFA Take 1 Puff by inhalation 2 times daily.. Signed by: Claus Couch Quantity: 12 Gram Refills: 5 gabapentin 100 mg capsule Commonly known as: NEURONTIN Take 1 Capsule (100 mg) by mouth daily at bedtime. Signed by: Claus Couch Quantity: 30 Capsule Refills: 3 ibuprofen 200 mg tablet Commonly known as: MOTRIN Take 400 mg by mouth daily. Refills: 0 isosorbide mononitrate 60 mg Extended Release 24 hour tablet Commonly known as: IMDUR TAKE ONE TABLET BY MOUTH 2 TIMES A DAY Signed by: Claus Couch Quantity: 60 Tablet Refills: 5 loratadine 10 mg tablet Commonly known as: CLARITIN Take 1 Tab by mouth daily. Signed by: Claus Couch Quantity: 30 Tablet Refills: 5 LORazepam 1 mg tablet Commonly known as: ATIVAN TAKE ONE TABLET BY MOUTH 2 TIMES A DAY.. Signed by: Claus Couch Quantity: 60 Tablet Refills: 3 magnesium oxide 250 mg Tablet Take 1 Tab by mouth 3 times daily. Refills: 0 MULTIVITAMIN ORAL Take 1 Tab by mouth daily with lunch. Refills: 0 NICOTINE TRANSDERMAL Apply 14 mg to skin as directed daily. Refills: 0 NITROSTAT 0.4 mg Tablet, Sublingual DISSOLVE 1 TABLET UNDER TONGUE EVERY 5 MINUTES NEEDED FOR CHEST PAIN. DO NOT EXCEED 3 DOSES. Signed by: Claus Couch Quantity: 25 Tablet Refills: PRN Generic drug: nitroglycerin OLANZapine 2.5 mg tablet Commonly known as: ZyPREXA Take 1 Tab by mouth daily at bedtime. Signed by: Kaye Fernandez Quantity: 30 Tablet Refills: 5 pantoprazole 40 mg Tablet, Delayed Release (E.C.) Commonly known as: PROTONIX Take 1 Tablet (40 mg) by mouth daily. Signed by: Claus Couch Quantity: 30 Tablet Refills: 5 pioglitazone 30 mg tablet Commonly known as: ACTOS Take 1 Tab by mouth daily. Signed by: Neyda Redmond Quantity: 90 Tablet Refills: 1 polyethylene glycol 3350 17 gram/dose Powder Commonly known as: MIRALAX Take 1 SCOOP (17 Gram) by mouth daily Dissolve in 8 ounces of fluid and drink en tire liquid. Signed by: Mary Zhou Quantity: 527 Gram Refills: 0 PROAIR HFA 90 mcg/Actuation inhaler Take 2 Puffs by inhalation every 4 hours as needed for Shortness of Breath. Signed by: Claus Couch Quantity: 8.5 Gram Refills: 5 Generic drug: albuterol sulfate ramipril 10 mg capsule Commonly known as: ALTACE Take 1 Cap by mouth daily. Signed by: Claus Couch Quantity: 90 Capsule Refills: 1 SENNOSIDES ORAL Take 1 Tablet by mouth 2 times daily. Refills: 0 simvastatin 40 mg tablet Commonly known as: ZOCOR TAKE ONE TABLET (40MG) BY MOUTH EVERY DAY IN THE EVENING Signed by: Claus Couch Quantity: 90 Tablet Refills: 1 tamsulosin 0.4 mg capsule Commonly known as: FLOMAX TAKE ONE CAPSULE BY MOUTH EVERY DAY 30 MINUTES AFTER SUPPER Signed by: Claus Couch Quantity: 30 Capsule Refills: 5 temazepam 15 mg capsule Commonly known as: RESTORIL Take 1 Capsule (15 mg) by mouth nightly as needed for Insomnia. Signed by: Claus Couch Quantity: 30 Capsule Refills: 5 traZODone 50 mg tablet Commonly known as: DESYREL Take 1 Tab by mouth daily at bedtime.. Signed by: Claus Couch Quantity: 30 Tablet Refills: 3 * Notice: !!Potential duplicate medications found. Review [facility]. Where to Get Your Medications Information about where to get these medications is not yet available ! Ask your nurse or doctor about these medications ciprofloxacin HCl 500 mg tablet nystatin 100,000 unit/mL suspension oxyCODONE 10 mg Controlled Release 12 hour crush resistant tablet oxyCODONE-acetaminophen 10-325 mg Tablet Consultants: IP CONSULT TO NUTRITION SERVICES IP CONSULT TO CASE MANAGEMENT IP CONSULT TO ORTHOPEDIC SURGERY Procedures performed: 04/19 1010 EKG 12 lead Discharge Lab Data: (Please note date of lab as some may have preceeded admissio n) Recent Labs 04/19/17 1450 WBC 9.8 HGB 9.7* HCT 29.4* PLT 508* Estimated Creatinine Clearance: 72.2 mL/min (by C-G formula based on Cr of 0.8). Please refer to hospital course above. Discharge Exam: BP 122/70 (BP Location: Left arm, Patient Position (BP): Supine) | Pulse 80 | Te mp 99 F (37.2 C) (Tympanic) | Resp 20 | Ht 5' 6" (1.676 m) | Wt 82.3 kg (18 1 lb 6.4 oz) | SpO2 94% | BMI 29.28 kg/m2 Last documented weight: Weight: 82.3 kg (181 lb 6.4 oz) (04/19/17 1337) Physical Exam: General Alert, oriented, no acute distress Lungs clear to auscultation bilaterally Heart regular rate and rhythm, S1, S2 normal, no murmur, click, rub or gallop Abdomen soft, non-tender, without masses or organomegaly Extremities Normal, 1+ bilateral pedal edema Neuro alert, oriented x3, affect appropriate, no focal neurological deficits Skin Skin color, texture, turgor normal. No rashes or lesions Discharge Condition: improving. Activity: activity as tolerated. Diet: DIET DIABETIC Wound Care: None needed Primary Emergency Contact: HELLEN VELOZ, [place] Signed: Claus Couch MD This discharge took less than 30 minutes of time to prepare documented in this encounter Discharge Instructions * Instructions* Jona Doran, INSURANCE OFFICE SUPERVISOR - 04/21/2017 Maintain a non-to toe-touch weightbearing status, left lower extremity until he is seen by his surgeon in [place] for follow-up. He has slight apparent loss of correction with hardware retained, varus alignment. DISCHARGE DESTINATION: [facility] DISCHARGE SERVICES: Physical and occupational therapy FOLLOW-UP Follow up with Dr. Couch on skilled nursing rounds. PRESCRIPTIONS: Prescriptions given? Yes and Printed SIGNS AND SYMPTOMS TO REPORT Contact your health care provider if you experience any of the following symptom s: increase in pain or temperature greater than 101. ACTIVITY Your activity level is: increase activity as tolerated and no smoking. If you smoke you are advised to quit. Ask your health care provider for advice if you need assistance to stop smoking. Avoid second-hand smoke exposure and do not le t people smoke in your home. call if not improving. DIET Your diet is: Diabetic diet (specify calories / restrictions) WOUND CARE For your wound/incision: None needed MEDICATIONS Reminders: Please discard any old medication lists and update records with all of your medi cation(s) to your providers and retail pharmacies. Please become familiar with the use and dose of your prescription and over-the-c ounter medications, including those taken only as needed. Please bring a current medication list and/or your medications to your medical a ppointments. Carry your allergy and medication information with you at all times in the event of emergency situations ................................................................................ ...................................................... *THANK YOU FOR CHOOSING [facility] Our goal is to provide you with the highest level of care and service. Your fe edback about the positive experience and opportunities for us to better serve u is important to us. Patients will be randomly selected for either a phone or e-mail survey. * Phone surveys will be conducted by a non-[facility] employed attendant to patients of [facility] inpatient unit, surgery, emergency department, home health or convenient care. * E-mail surveys will be delivered to [facility] patients and outpatients. .Did you know you don't have to call your doctor's office to ask a question, get your test results, or request an appointment or prescription renewal? You can do all of that and more, 31/05, with [employer]. Send a secure message, pay a bill, check your health records - it's all there on your laptop, tablet, or phone, an ywhere you have Internet access. Learn more or sign up at [employer]. .. IMPORTANT EMERGENCY PHONE NUMBERS Poison Control [place] Crisis Hotline- Domestic Violence Suicide Prevention Lifeline * Attachments The following attachments cannot be sent through Care Everywhere.* DIABETES: FALL PREVENTION (YORUBA) * HIP PAIN (YORUBA) * UTI (URINARY TRACT INFECTION): MALE (YORUBA) documented in this encounter Medications at Time [...] Drop in both eyes 2 times daily. 04/21/2017 04/26/2017 nystatin (MYCOSTATIN) Take 5 mL 100 mL 0 100,000 unit/mL (500,000 suspension Units) by mouth 4 times daily for 5 days. 04/21/2017 04/24/2017 ciprofloxacin HCl (CIPRO) Take 1 Tablet 6 Tablet 0 500 mg tablet (500 mg) by mouth 2 times daily for 3 days. 04/21/2017 05/17/2017 oxyCODONE (OxyCONTIN) 10 Take 1 Tablet 60 Tablet 0 mg Controlled Release 12 (10 mg) by hour crush resistant mouth every tablet 12 hours. Max Daily Amount: 20 mg 04/21/2017 05/10/2017 oxyCODONE-acetaminophen Take 2 60 Tablet 0 (PERCOCET) 10-325 mg Tablets by Tablet mouth every 4 hours as needed for Pain, Break-Through . Max Daily Amount: 12 Tablets 04/09/2017 10/20/2017 simvastatin (ZOCOR) 40 mg TAKE [...] 50 Administer 2 16 Gram 5 mcg/spray Carbon, Sprays in Suspension each nostril daily.. 08/16/2015 07/07/2017 PROAIR HFA 90 Take 2 Puffs 8.5 Gram 5 mcg/actuation inhaler by inhalation every 4 hours as needed for Shortness of Breath. 09/10/2010 04/26/2018 MULTIVITAMIN PO Take 1 Tab by 0 mouth daily with lunch. documented as of this encounter Progress Notes * Jeri Garcia RN - 04/21/2017 12:00 PM CDT Pt dismissed to skilled nursing. * Odell Casillas, Physical Therapist - 04/20/2017 4:17 PM CDT PHYSICAL THERAPY TREATMENT NOTE Date of service: 04/20/2017 Time In:15:49 Time Out: 15:50 Total Time:0 Therapy Recommendation for DC Planning: [facility] Facility Charges - IN MINUTES: Therapeutic Exercise- 0, Therapeutic Activity - 0 PRECAUTIONS: fall precautions Equipment:: IV, Oxygen 0 Liters/min and Telemetry Weight Bearing: full weight bearing on right lower, left lower extremity/ies Subjective: Patient reports that he is too tired to do his exercises and has bee n up in chair since noon. Treatment 0 Education: Patient verbalized understanding with safety education Status After Treatment lying in bed with call light and phone within reach Plan Patient plan of care is ongoing * Odell Casillas, Physical Therapist - 04/20/2017 9:48 AM CDT PHYSICAL THERAPY TREATMENT NOTE Date of service: 04/20/2017 Time In: 9:05 Time Out:9:35 Total Time: 30 Therapy Recommendation for DC Planning: [facility] Facility Charges - IN MINUTES: Therapeutic Exercise- 18, Therapeutic Activity - 12 PRECAUTIONS: fall precautions Equipment:: IV, Oxygen 0 Liters/min and Telemetry Weight Bearing: weight bearing as tolerated on left lower extremity/ies Subjective: Patient reports that he continue to have left hip pain but it is bet ter Treatment Patient performed supine exercise:QS,HS,HAA,AP,Functional mobility-supine to sit with supervision,Min assist in sit to supine,Mod assist in sit to stand/pivot t ransfers. Education: Patient verbalized understanding, needs reinforcement and will need f urther training in formal therapy sessions with safety education Status After Treatment lying in bed with call light and phone within reach Plan Patient plan of care is progressing 1 0:42 AM CDT * Claus Couch MD - 04/20/2017 8:44 AM CDT Admit Date: 04/19/2017 12:56 PM Subjective: Oliverio Dalton is a 66 y.o. male admitted for Active Problems: Seizure Left hip pain Hyponatremia Frequent falls Acute cystitis without hematuria still with pain and difficulty walking Overall symptoms are unchanged. Objective: Patient Vitals for the past 8 hrs: BP Temp Temp src Pulse Resp SpO2 04/20/17 0738 (!) 146/73 98.5 F (36.9 C) Tympanic 92 16 95 % Intake/Output Summary (Last 24 hours) at 04/20/17 0844 Last data filed at 04/20/17 0600 Gross per 24 hour Intake 1660 ml Output 2600 ml Net -940 ml Physical Exam: BP (!) 146/73 | Pulse 92 | Temp 98.5 F (36.9 C) (Tympanic) | Resp 16 | Ht 5 ' 6" (1.676 m) | Wt 82.3 kg (181 lb 6.4 oz) | SpO2 95% | BMI 29.28 kg/m2 General appearance: alert, in no distress Lungs: [...] rios or thighs, normal strength, normal tone Data Review: Labs are reviewed and time marked in EPIC Assessment: Active Problems: Seizure Left hip pain Hyponatremia Frequent falls Acute cystitis without hematuria Plan: Continue current treatment plan and see orders for any additional changes. the patient is [facility]able for[facility] will work on dc planning * Pilar Singh RN - 04/19/2017 4:48 PM CDT POC glucose check completed, BS 164. * Odell Casillas, Physical Therapist - 04/19/2017 2:35 PM CDT PHYSICAL THERAPY TREATMENT NOTE Date of service: 04/19/2017 Time In: 13:10 Time Out: 13:40 Total Time: 30 Therapy Recommendation for DC Planning: [facility] Facility Charges - IN MINUTES: Therapeutic Exercise- 15, Therapeutic Activity - 15 PRECAUTIONS: fall precautions Equipment:: IV, Oxygen 0 Liters/min and Telemetry Weight Bearing: full weight bearing on right lower, left lower extremity/ies Subjective: Patient reports that his left leg pain is better but continue to hav e difficulty in moving Treatment Patient performed supine exercises:AP,HS,HAA x20 reps to LLE,Functional mobility training-Supine to sit with supervision and Min assist to BLE in sit to supine, Pt requires Moderate assist in sit to stand and pivot transfers,stood with walke r for few seconds with poor standing posture and balance. Education: Patient verbalized understanding, needs reinforcement and will need f urther training in formal therapy sessions with safety education Status After Treatment lying in bed with call light and phone within reach Plan Patient plan of care is progressing documented in this encounter Consult Notes * Jona Doran, INSURANCE OFFICE SUPERVISOR - 04/21/2017 8:37 AM CDT admitting diagnosis: left hip pain, s/p orif left hip,long T[place] HPI: fell about one month ago and was [place] he underw ent surgery for a fractured hip. he was there for about one week he states. .h sarah is confused about his history however he tries to seemingly describe a second injury, fall, in which [place] was [place] and was told about the " tanvir moving or had come down a little bit and was supposed to follow-up with his orthopedic su[place] he has been able to navigate around his house he states using a wheel chair and if the "rehab jaxon is there he uses a walker." he has been able to walk some ove r the last week or two which has been painful. he has not walked lately he stat es "cause to walk I have to put my shoes on, he describes since coming into the hospital." he has sustained a second fall about one week ago he states "or whenever i came into the hospital this time." he slipped on water on the floor. he states he f ell hard and landed on both hips, mostly the left. he has had increasing pain s rocco that time." the pain is in his left hip and down his left leg. he is having a lot of low ba ck pain as well. he has injuries and falls and has sustained injuries to his back before yrs ago. no recent back problems. On examination, this patient has slight shortening, left lower extremity. He mackenzie s limitation of motion, left hip with some reproduction of soreness, which is no t unexpected as this fracture is not completely healed and he has slight varus a lignment, probably since his surgery. I do not have films to compare, immediate postop films. Neurovascular status is intact left lower extremity and the left lower extremity is in satisfactory alignment. I've spoken with about my concerns regarding the fixation and varus a lignment. An incompletely healed fracture. He believes with this patient's low activity level that it is in satisfactory alignment for him. Assessment status post ORIF left basal cervical femoral fracture, with probably some loss of correction, varus alignment. Plan I've recommended. Non to toe touch weightbearing at the most. Until he se es his surgeon, which I understand is scheduled in the next couple of weeks. We 'll plan to recheck him back when necessary appreciate the consultation documented in this encounter Miscellaneous Notes * Addendum Note - Odell Casillas Physical Therapist - 05/06/2017 10:50 AM CDT Encounter addended by: Odell Casillas Physical Therapist on: 05/06/2017 10: 50 AM
Actions taken: Charge Capture section accepted 1 0:50 AM CDT * Care Plan - Viri Tipton RN - 04/21/2017 5:19 AM CDT Pt anxious about going to skilled nursing. Pt worried the skilled nursing will not get his meds right and will not bring him pain medicine. Musculoskeletal Achieve optimal musculoskeletal function by discharge or maintain baseline f unction Variance Pain, Potential/Actual Verbalizes/displays acceptable comfort level or baseline comfort level Varia nce * Care Plan - Jeri Garcia RN - 04/20/2017 6:53 PM CDT Possibly to skilled nursing tomorrow. * Care Plan - Viri Tipton RN - 04/20/2017 5:11 AM CDT [facility]: Adult and Obstetric (Swing Inpatient) Day 1 Patient, family, or healthcare designee is participating in individual car e plan process Met Patient, family, or healthcare designee understands side effects of medica tions Met Musculoskeletal Achieve optimal musculoskeletal function by discharge or maintain baseline f unction Variance * Care Plan - Pilar Singh RN - 04/19/2017 6:59 PM CDT Patient slept most of afternoon. Given oxycodone/tylenol 10-325 mg x2 tabs as or dered twice throughout shift. Worked with physical therapy x2. Resting quietly. Musculoskeletal Achieve optimal musculoskeletal function by discharge or maintain baseline f unction Variance Pain, Potential/Actual Verbalizes/displays acceptable comfort level or baseline comfort level Varia nce documented in this encounter Plan of Treatment Not on filedocumented as of this encounter Procedures Comments Procedure Name Priority Date/Time Associated Diag nosis POC GLUCOSE Routine 04/21/2017 10:47 AM CDT POC GLUCOSE Routine 04/21/2017 8:11 AM CDT POC GLUCOSE Routine 04/20/2017 8:30 PM CDT POC GLUCOSE Routine 04/20/2017 4:57 PM CDT POC GLUCOSE Routine 04/20/2017 11:45 AM CDT POC GLUCOSE Routine 04/20/2017 8:31 AM CDT POC GLUCOSE Routine 04/19/2017 8:52 PM CDT POC GLUCOSE Routine 04/19/2017 4:45 PM CDT CBC WITH DIFFERENTIAL Routine 04/19/2017 2:50 PM CDT documented in this encounter Results * POC GLUCOSE (04/21/2017 10:47 AM CDT) POC GLUCOSE 201 (H) 70 - 100 mg/dL [facility] ASSIGNMENT OFFICER NAME Sharon Granados [facility] Specimen Whole blood sample (specimen) Performing Organization Address [facility] [facility] Ph one [facility] [employer] [facility] CLIA# [id number] GAB JEFFERSON [address] * POC GLUCOSE (04/21/2017 8:11 AM CDT) POC GLUCOSE 214 (H) 70 - 100 mg/dL [facility] [place] ASSIGNMENT OFFICER NAME Jeri Garcia [facility] - [facility] Specimen Whole blood sample (specimen) Performing Organization Address [facility] Ph one [facility] [employer] [facility] CLIA# [id number] GAB JEFFERSON [address] * POC GLUCOSE (04/20/2017 8:30 PM CDT) POC GLUCOSE 218 (H) 70 - 100 mg/dL [facility] [place] ASSIGNMENT OFFICER NAME Viri Tipton [facility] [place] Specimen Whole blood sample (specimen) Performing Organization Address [facility] [employer] [facility] CLIA# [id number] GAB JEFFERSON [address] 01 - [address] * POC GLUCOSE (04/20/2017 4:57 PM CDT) POC GLUCOSE 154 (H) 70 - 100 mg/dL [facility] [place] ASSIGNMENT OFFICER NAME Jeri Garcia [facility] - [facility] Specimen Whole blood sample (specimen) Performing Organization Address [facility] Ph one [facility] CLIA# [id number] GAB JEFFERSON 667 - [facility] [place] [address] [place] [address] * POC GLUCOSE (04/20/2017 11:45 AM CDT) POC GLUCOSE 196 (H) 70 - 100 mg/dL [facility] [place] ASSIGNMENT OFFICER NAME Jeri Garcia [facility] - [facility] Specimen Whole blood sample (specimen) Performing Organization Address [facility] one [facility] CLIA# [id number] GAB JEFFERSON - [address] * POC GLUCOSE (04/20/2017 8:31 AM CDT) POC GLUCOSE 216 (H) 70 - 100 mg/dL [facility] [place] ASSIGNMENT OFFICER NAME Jeri Garcia [facility] [place] Specimen Whole blood sample (specimen) Performing Organization Address [facility] one [facility] CLIA# [id number] GAB JEFFERSON [facility] [phone] - [address] * POC GLUCOSE (04/19/2017 8:52 PM CDT) POC GLUCOSE 153 (H) 70 - 100 mg/dL [facility] [place] ASSIGNMENT OFFICER NAME Viri Tipton [facility] [place] Specimen Whole blood sample (specimen) Performing Organization Address [facility] one [facility] CLIA# [id number] GAB JEFFERSON [place] [phone] - [address] * POC GLUCOSE (04/19/2017 4:45 PM CDT) POC GLUCOSE 164 (H) 70 - 100 mg/dL [facility] [place] ASSIGNMENT OFFICER NAME Darwin Sharon [facility] [place] Specimen Whole blood sample (specimen) Performing Organization Address [facility] one [facility] CLIA# [id number] GAB JEFFERSON [address] - [address] * CBC WITH DIFFERENTIAL (04/19/2017 2:50 PM CDT) WBC 9.8 3.6 - 11.1 K/uL [facility] [place] RBC 3.41 (L) 4.49 - 5.52 M/uL [facility] [place] HEMOGLOBIN 9.7 (L) 13.3 - 16.5 g/dL [facility] [place] HEMATOCRIT 29.4 (L) 40.7 - 48.9 % [facility] [place] MCV 86.2 82.7 - 97.1 fL [facility] [place] MCH 28.4 27.1 - 32.3 pg [facility] [place] MCHC 33.0 31.3 - 34.9 g/dL [facility] [place] RDW 13.5 11.5 - 14.7 % [facility] [place] RDW-STDEV 42.5 37.2 - 47.6 fL [facility] [place] PLATELETS 508 (H) 136 - 352 K/uL [facility] [place] MPV 7.6 (L) 8.6 - 11.8 fL [facility] [place] NEUTROPHILS 73 44 - 74 % [facility] [place] LYMPHOCYTES 15 (L) 16 - 44 % [facility] [place] MONOCYTES 12 (H) 4 - 11 % [facility] [place] EOSINOPHILS 0 0 - 6 % [facility] [place] BASOPHILS 0 0 - 1 % [facility] [place] IMMATURE 1 0 - 1 % [facility] [place] NEUTROPHIL 7.15 1.54 - 7.18 K/uL [facility] [place] LYMPHOCYTE 1.42 0.69 - 3.61 K/uL [facility] [place] MONOCYTE 1.14 (H) 0.19 - 0.95 K/uL [facility] [place] EOSINOPHIL 0.04 0.00 - 0.44 K/uL [facility] [place] BASOPHILS 0.01 0.00 - 0.10 K/uL [facility] [place] IMMATURE 0.06 0.00 - 0.09 K/uL [facility] [place] Specimen Blood Performing Organization Address City/State/Zipcode Ph one Number [facility] CLIA# [id number] [place] [address] documented in this encounter Visit Diagnoses Diagnosis Acute cystitis without hematuria Acute cystitis Hyponatremia Hyposmolality and/or hyponatremia Frequent falls Personal history of fall Left hip pain Pain in joint, pelvic region and thigh Seizure Other convulsions documented in this encounter Administered Medications Action Date Dose Rate Site Medication Order MAR Action 04/21/2017 8:19 AM CDT 81 mg aspirin (ECOTRIN EC) tablet 81 mg Given 81 mg, Oral, DAILY, First dose (after last modification) on Wed04/20/17 at 0900, Until Discontinued, Routine, Previous Med: ASPIRIN EC 81 mg Oral TbE C - Orig Sig - Take 81 mg by mouth daily. , SNF/REHAB/SWING 81 mg Given 04/20/2017 8:56 AM CDT 04/21/2017 6:50 AM CDT 25 mg bethanechol (URECHOLINE) tablet 25 mg Given 25 mg, Oral, FOUR TIMES DAILY BEFORE MEALS AND AT BEDTIME, First dose (after last modification) on Wed04/19/17 at 1630, Until Discontinued, Routine, Previous Med: bethanechol (URECHOLINE) 25 mg tablet - Orig Sig - TAKE ONE TABLET BY MOUTH FOUR TIMES A DAY , SNF/REHAB/SWING 25 mg Given 04/20/2017 8:26 PM CDT 25 mg Given 04/20/2017 5:01 PM CDT 04/21/2017 9:13 AM CDT 0.5 mg budesonide (PULMICORT RESPULE) 0.5 mg/2 Given mL inhalation solution 0.5 mg 0.5 mg, Inhalation, TWICE DAILY RESPIRATORY, First dose (after last modification) on Wed04/19/17 at 2100, Until Discontinued, Routine, SNF/REHAB/SWING 0.5 mg Given 04/20/2017 8:38 PM CDT 0.5 mg Given 04/20/2017 9:31 AM CDT 04/21/2017 8:19 AM CDT 75 mg clopidogrel (PLAVIX) tablet 75 mg Given 75 mg, Oral, DAILY, First dose (after last modification) on Wed04/20/17 at 0900, Until Discontinued, Routine, Previous Med: clopidogrel (PLAVIX) 75 m g Tablet - Orig Sig - Take 1 Tab by mouth daily. , SNF/REHAB/SWING 75 mg Given 04/20/2017 11:35 AM CDT 04/20/2017 1:56 PM CDT 40 mg Abdomen, Left Lower Quadrant enoxaparin (LOVENOX) injection 40 mg Given 40 mg, subCUT, EVERY 24 HOURS, First dose (after last modification) on Wed04/20/17 at 1400, Until Discontinued, Routine, SNF/REHAB/SWING 04/20/2017 8:26 PM CDT 10 mg ezetimibe (ZETIA) tablet 10 mg Given 10 mg, Oral, DAILY, First dose (after last modification) on Wed04/19/17 at 2100, Until Discontinued, Routine, Previous Med: ezetimibe (ZETIA) 10 mg tablet - Orig Sig - Take 1 Tab by mouth daily at bedtime. , SNF/REHAB/SWING 10 mg Given 04/19/2017 8:41 PM CDT 04/20/2017 6:12 PM CDT 145 mg fenofibrate nanocrystallized (TRICOR) Given tablet 145 mg 145 mg, Oral, DAILY, First dose (after last modification) on Wed04/19/17 at 1800, Until Discontinued, Routine, Previous Med: fenofibrate nanocrystallized (TRICOR) 145 mg tablet - Orig Sig - Take 1 Tab by mouth daily with supper. , SNF/REHAB/SWING 145 mg Given 04/19/2017 6:05 PM CDT 04/20/2017 11:50 PM CDT 50 mcg fentaNYL PF (SUBLIMAZE) 50 mcg/mL Given injection 50 mcg 50 mcg, IV, EVERY 6 HOURS PRN, Starting Wed04/19/17 at 1348, Until Wed04/21/17 at 1411, Pain (See admin instructions), Routine, SNF/REHAB/SWING 04/21/2017 8:19 AM CDT 40 mg FLUoxetine (PROzac) capsule 40 mg Given 40 mg, Oral, DAILY, First dose (after last modification) on Wed04/20/17 at 0900, Until Discontinued, Routine, Previous Med: FLUoxetine (PROzac) 20 mg capsule - Orig Sig - TAKE 2 CAPSULES BY MOUTH EVERY DAY. , SNF/REHAB/SWING 40 mg Given 04/20/2017 8:56 AM CDT 04/20/2017 8:26 PM CDT 100 mg gabapentin (NEURONTIN) capsule 100 mg Given 100 mg, Oral, DAILY AT BEDTIME, First dose (after last modification) on Wed04/19/17 at 2100, Until Discontinued, Routine, Previous Med: gabapentin (NEURONTIN) 100 mg capsule - Orig Sig - Take 1 Capsule (100 mg) by mouth daily at bedtime. , SNF/REHAB/SWING 100 mg Given 04/19/2017 8:42 PM CDT 04/20/2017 11:36 AM CDT 400 mg ibuprofen (MOTRIN) tablet 400 mg Given 400 mg, Oral, DAILY, First dose (after last modification) on Wed04/20/17 at 1200, Until Discontinued, Routine, Previous Med: ibuprofen (MOTRIN) 200 mg tablet - Orig Sig - Take 400 mg by mout h daily. , SNF/REHAB/SWING 04/21/2017 8:12 AM CDT 2 Units Arm, Rig ht Upper insulin lispro (HumaLOG) 100 units/mL Given variable dose injection subCUT, THREE TIMES DAILY WITH MEALS, First dose (after last modification) on Wed04/19/17 at 1400, Until Discontinued , Routine, SNF/REHAB/SWING 1 Units Arm, Left Upper Given 04/20/2017 4:59 PM CDT 2 Units Arm, Right Upper Given 04/20/2017 11:47 AM CDT 04/20/2017 8:31 PM CDT 2 Units Arm, Lef t Upper insulin lispro (HumaLOG) 100 units/mL Given variable dose injection subCUT, DAILY AT BEDTIME, First dose (after last modification) on Wed 7 at 2100, Until Discontinued, Routine, SNF/REHAB/SWING 04/21/2017 8:18 AM CDT 60 mg isosorbide mononitrate (IMDUR) SR 24 Given hour tablet 60 mg 60 mg, Oral, TWO TIMES DAILY, First dos e (after last modification) on Wed 7 at 2100, Until Discontinued, Routine, Previous Med: isosorbide mononitrate (IMDUR) 60 mg Extended Release 24 hour tablet - Orig Sig - TAKE ONE TABLET BY MOUTH 2 TIMES A DAY , SNF/REHAB/SWING 60 mg Given 04/20/2017 8:26 PM CDT 60 mg Given 04/20/2017 8:59 AM CDT 04/20/2017 11:33 AM CDT 500 mg 100 mL/hr levoFLOXacin (LEVAQUIN) 500 mg/100 mL in New Bag D5W IVPB 500 mg 500 mg, IV, EVERY 24 HOURS, First dose (after last modification) on Wed 7 at 1000, Until Discontinued, Routine, SNF/REHAB/SWING, Antibiotic Indication: Urinary Tract Infection(UTI) / Infection 04/21/2017 8:18 AM CDT 10 mg loratadine (CLARITIN) tablet 10 mg Given 10 mg, Oral, DAILY, First dose (after last modification) on Wed04/19/17 at 1415, Until Discontinued, Routine, Previous Med: loratadine (CLARITIN) 10 mg tablet - Orig Sig - Take 1 Tab by mouth daily. , SNF/REHAB/SWING 10 mg Given 04/20/2017 8:56 AM CDT 10 mg Given 04/19/2017 3:12 PM CDT 04/21/2017 8:19 AM CDT 1 mg LORazepam (ATIVAN) tablet 1 mg Given 1 mg, Oral, TWO TIMES DAILY, First dose (after last modification) on Wed 7 at 2100, Until Discontinued, Routine, Previous Med: LORazepam (ATIVAN) 1 mg tablet - Orig Sig - TAKE ONE TABLET BY MOUTH 2 TIMES A DAY.. , SNF/REHAB/SWIN G 1 mg Given 04/20/2017 8:26 PM CDT 1 mg Given 04/20/2017 8:56 AM CDT 04/21/2017 8:18 AM CDT 400 mg magnesium oxide (MAG-OX) tablet 400 mg Given 400 mg, Oral, THREE TIMES DAILY, First dose (after last modification) on Wed04/19/17 at 1500, Until Discontinued, Routine, Previous Med: magnesium oxide 250 mg Oral Tab - Orig Sig - Take 1 Tab by mouth 3 times daily. , SNF/REHAB/SWING 400 mg Given 04/20/2017 8:26 PM CDT 400 mg Given 04/20/2017 2:58 PM CDT 04/21/2017 8:17 AM CDT 500,000 Units nystatin (MYCOSTATIN) 100,000 unit/mL Given suspension 500,000 Units 500,000 Units, Oral, FOUR TIMES DAILY, First dose (after last modification) on Wed04/19/17 at 1800, Until Discontinued , Routine, SNF/REHAB/SWING, Antibiotic Indication: Other: Enter in Comments, Antibiotic Indication: thrush 500,000 Units Given 04/20/2017 8:26 PM CDT 500,000 Units Given 04/20/2017 6:13 PM CDT 04/20/2017 8:26 PM CDT 2.5 mg OLANZapine (ZyPREXA) tablet 2.5 mg Given 2.5 mg, Oral, DAILY AT BEDTIME, First dose (after last modification) on Wed04/19/17 at 2100, Until Discontinued, Routine, Previous Med: OLANZapine (ZyPREXA) 2.5 mg tablet - Orig Sig - Take 1 Tab by mouth daily at bedtime. , SNF/REHAB/SWING 2.5 mg Given 04/19/2017 8:41 PM CDT 04/21/2017 8:17 AM CDT 10 mg oxyCODONE (OxyCONTIN) SR 12 hour crush Given resistant tablet 10 mg 10 mg, Oral, EVERY 12 HOURS (BlD), Firs t dose on Wed04/19/17 at 2100, Until Discontinued, Routine, SNF/REHAB/SWING 10 mg Given 04/20/2017 8:26 PM CDT 10 mg Given 04/20/2017 8:57 AM CDT 04/21/2017 3:44 AM CDT 1 Tablet oxyCODONE-acetaminophen (PERCOCET) Given 10-325 mg per tablet 1 Tablet 1 Tablet, Oral, EVERY 6 HOURS PRN, Starting Wed04/19/17 at 1348, Until Wed04/21/17 at 1411, Pain, Moderate, Pain, Severe, Routine, Previous Med: oxyCODONE-acetaminophen (PERCOCET) 10-325 mg Tablet - Orig Sig - Take 1 Tablet by mouth every 6 hours as needed for Pain, Severe. Max Daily Amount: 4 Tablets , SNF/REHAB/SWING 1 Tablet Given 04/20/2017 9:49 PM CDT 1 Tablet Given 04/20/2017 11:35 AM CDT 04/19/2017 5:26 PM CDT 2 Tablets oxyCODONE-acetaminophen (PERCOCET) Given 10-325 mg per tablet 2 Tablet 2 Tablet, Oral, EVERY 4 HOURS PRN, Starting Wed04/19/17 at 1348, Until Wed04/21/17 at 1411, Pain (See admin instructions), Pain, Severe, Routine, SNF/REHAB/SWING 04/21/2017 8:18 AM CDT 40 mg pantoprazole (PROTONIX) tablet 40 mg Given 40 mg, Oral, DAILY, First dose (after last modification) on Wed04/20/17 at 0900, Until Discontinued, Routine, Previous Med: esomeprazole Magnesium (NexIUM) 10 mg suspension delayed release - Orig Sig - Take 40 mg by mout h daily. , SNF/REHAB/SWING 40 mg Given 04/20/2017 8:57 AM CDT 04/21/2017 8:17 AM CDT 200 mg phenytoin sodium (DILANTIN) extended Given release capsule 200 mg 200 mg, Oral, TWO TIMES DAILY, First dose (after last modification) on Wed04/19/17 at 2100, Until Discontinued, Routine, Previous Med: phenytoin sodium (DILANTIN EXTENDED) 100 mg extended release capsule - Orig Sig - Take 100 m g by mouth see administration instruction s 2 tabs in the a.m. 2 tab in the p.m.. , SNF/REHAB/SWING 200 mg Given 04/20/2017 8:26 PM CDT 200 mg Given 04/20/2017 8:55 AM CDT 04/21/2017 8:18 AM CDT 30 mg pioglitazone (ACTOS) tablet 30 mg Given 30 mg, Oral, DAILY WITH BREAKFAST, Firs t dose (after last modification) on Wed04/20/17 at 0800, Until Discontinued, Routine, Previous Med: pioglitazone (ACTOS) 30 mg tablet - Orig Sig - Take 1 Tab by mouth daily. , SNF/REHAB/SWING 30 mg Given 04/20/2017 8:56 AM CDT 04/21/2017 8:18 AM CDT 10 mg ramipril (ALTACE) capsule 10 mg Given 10 mg, Oral, DAILY, First dose (after last modification) on Wed04/20/17 at 0900, Until Discontinued, Routine, Previous Med: ramipril (ALTACE) 10 mg capsule - Orig Sig - Take 1 Cap by mout h daily. , SNF/REHAB/SWING 10 mg Given 04/20/2017 8:55 AM CDT 04/20/2017 8:26 PM CDT 40 mg simvastatin (ZOCOR) tablet 40 mg Given 40 mg, Oral, DAILY AT BEDTIME, First dose (after last modification) on Wed04/19/17 at 2100, Until Discontinued, Routine, Previous Med: simvastatin (ZOCOR) 40 mg tablet - Orig Sig - TAKE ONE TABLET (40MG) BY MOUTH EVERY DAY IN THE EVENING , SNF/REHAB/SWING 40 mg Given 04/19/2017 8:42 PM CDT 04/20/2017 1:54 PM CDT 30 mL/hr sodium chloride 0.9% infusion New Bag IV, at 30 mL/hr, CONTINUOUS, Starting Wed04/19/17 at 1400, Until Wed04/21/17 at 1411, Routine, SNF/REHAB/SWING 30 mL/hr New Bag 04/19/2017 2:00 PM CDT 04/20/2017 6:12 PM CDT 0.4 mg tamsulosin (FLOMAX) SR 24 hour capsule Given 0.4 mg 0.4 mg, Oral, DAILY AFTER SUPPER, First dose (after last modification) on Wed04/19/17 at 1800, Until Discontinued, Routine, Previous Med: tamsulosin (FLOMAX) 0.4 mg capsule - Orig Sig - TAKE ONE CAPSULE BY MOUTH EVERY DAY 30 MINUTES AFTER SUPPER , SNF/REHAB/SWING 0.4 mg Given 04/19/2017 6:05 PM CDT 04/21/2017 9:00 AM CDT 1 Drop timolol (TIMOPTIC) 0.5 % ophthalmic Given solution 1 Drop 1 Drop, Both Eyes, TWO TIMES DAILY, First dose (after last modification) on Wed04/19/17 at 2100, Until Discontinued , Routine, Previous Med: BETIMOL 0.5 % OP Drop - Orig Sig - Administer 1 Drop in both eyes 2 times daily. , SNF/REHAB/SWING 1 Drop Given 04/20/2017 8:32 PM CDT 1 Drop Given 04/20/2017 9:00 AM CDT 04/20/2017 8:26 PM CDT 50 mg traZODone (DESYREL) tablet 50 mg Given 50 mg, Oral, DAILY AT BEDTIME, First dose (after last modification) on Wed04/19/17 at 2100, Until Discontinued, Routine, Previous Med: traZODone (DESYREL) 50 mg tablet - Orig Sig - Apolinar e 1 Tab by mouth daily at bedtime.. , SNF/REHAB/SWING 50 mg Given 04/19/2017 8:42 PM CDT documented in this encounter Additional Health Concerns Assessment Noted Time A Hypertension Plan of Care has been documented for t pati patient 02/12/2017 12:54 PM CDT documented as of this encounter
--- OUTSIDE RECORDS SUMMARY | 2020-03-24 14:01 | XMS REPORT | Encounter Summary ---
Author Author [facility] Organization [facility] Address Unknown Phone Unavailable Care Team Providers Care 4 H Youth Development Specialist Name Role Phone Claus Couch MD PCP Encounter Details Care Team Description Date Type Department Jada Fernandez MD NO ADDRESS ON FILE 04/30/2017 Abstract [facility] Primar y Care [place] [address] [place] [address] Social History Date Tobacco Use [...]
--- OUTSIDE RECORDS SUMMARY | 2020-03-24 14:01 | XMS REPORT | Encounter Summary ---
Author Author [facility] Organization [facility] Address Unknown Phone Unavailable Care Team Providers Care [employer] Name Role Phone Claus Couch MD PCP Encounter Details Care Team Description Date Type Department Claus Couch MD [address] [place] [address] 04/30/2017 Abstract [facility] Primar y Care [place] [address] [place] [address] Social History Date Tobacco Use [...]
--- OUTSIDE RECORDS SUMMARY | 2020-03-24 14:01 | XMS REPORT | Encounter Summary ---
Author Author [facility] Organization [facility] Address Unknown Phone Unavailable Care Team Providers Care Motorsports Technician Name Role Phone Claus Couch MD PCP Reason for Visit * Reason Comments Generalized Body Aches Hurts all over, pain in all joints. Just discharged from hospital yesterday to [place]. Anxiety Encounter Details Care Team Description Date Type Department Complicated UTI (urinary tra ct infection) (Primary Dx); Hyponatremia 04/22/2017 Emergency [facility] Emergency Department [address] [id number] Social History Date Tobacco Use Types Packs/Day [...] Signs Reading Time Taken Comments Vital Sign 102/58 04/22/2017 12:50 PM CDT Blood Pressure - - Pulse 35.4 C (95.7 F) 04/22/2017 12:50 PM CDT Temperature 20 04/22/2017 12:50 PM CDT Respiratory Rate 97% 04/22/2017 12:50 PM CDT Oxygen Saturation - - Inhaled Oxygen Concentration 81.6 kg (180 lb) 04/22/2017 11:37 AM CDT Weight 167.6 cm (5' 6") 04/22/2017 11:37 AM CDT Height 29.05 04/22/2017 11:37 AM CDT Body Mass Index documented in [...] Break-Through . Max Daily Amount: 12 Tablets 04/21/2017 05/20/2017 LORazepam (ATIVAN) 1 mg TAKE [...] ED Notes * Kristina Keller RN - 04/22/2017 1:36 PM CDT [facility] EMS staff here for transport. Report to [facility] EMT. * Kristina Keller RN - 04/22/2017 12:50 PM CDT Sleeping at this time. Respirations even & unlabored. Snoring softly. Arouses easily. * Kristina Keller RN - 04/22/2017 12:05 PM CDT Pt resting quietly on cart with no c/o at this time. Pt's sister, brian Macedo ntinues to request that pt be transferred to [facility] in [place]. * Kristina Keller RN - 04/22/2017 11:40 AM CDT PT brought to ER via [facility] from [facility]. Pt having increased pain & anxiety. Pt's sister requesting that pt not be brought to the ER but taken dir ectly to [facility] in [place]. Inquired of sister reason for wanting transferred. Pt reports that this is wher e his orthopedic provider is. Pt had hip fx on 03/07/17 that was repaired at [facility]. Pt had been hospitalized at [facility] for several days and was just discharged to [facility] yesterday. Pt very anxious, but able to report that he is hurting all over. Sister to room and aware of reason for not directly taking pt to [facility]. P t has PCP at [facility]. * Jeri Anderson APRN - 04/22/2017 11:28 AM CDT HISTORY OF PRESENT ILLNESS Oliverio Dalton, a 66 y.o. male presents to the ED with a Chief Complaint of Ge neralized Body Aches and Anxiety patient brought in via EMS from [facility]. Per EMS family requested trans rupal to [facility] but patient was in so much pain and concern unstable so broug ht to closest facility. Patient states was dc'd yesterday. C/o severe pain "all over". States worse to h ips. States has "laid in the intermediate for a full day nothing for pain and no t getting out of bed". Sister very upset and crying at bedside. Demanding transfer to [facility] immed iately. Denies new fever or chest pain. Appears more body aches and joint pain. denies visual changes. C/o general weakness that has worsened over last 24 hours. Per sister recent hx left hip fx repair from [facility] state but unable to tell provider specific surge on or date. States did go thought therapy and rehab and was doing better until fall last wee k- was noted UTI and hyponatremia post fall so kept at [facility] until yesterday whe n dc'd to [place]. Sister concern has just worsened. Subjective History provided by: The patient bus cleaner used: No Arrived by: Private vehicle Arrived from: Home Generalized Body Aches Presenting symptoms: fatigue, headache and myalgias Presenting symptoms: no cough, no diarrhea, no fever, no nausea, no rhinorrhea, no shortness of breath, no sore throat and no vomiting Severity: Severe Onset quality: Gradual Duration: 1 day Progression: Worsening Chronicity: Recurrent Worsened by: Nothing tried Associated symptoms: decreased appetite, decreased physical activity and neck st iffness Associated symptoms: no chills, no ear pain, no mental status change, no congest ion and no witnessed syncope Risk factors: being elderly, diabetes and heart disease Risk factors: no kidney disease, no liver disease, not and no sick cont acts Anxiety Associated symptoms: fatigue and headaches Associated symptoms: no appetite change REVIEW OF SYSTEMS Review of Systems Constitutional: Positive for activity change, decreased appetite and fatigue. Ne gative for appetite change, chills, diaphoresis, fever and unexpected weight dionicio nge. HENT: Negative for congestion, drooling, ear discharge, ear pain, rhinorrhea and sore throat. Respiratory: Negative. Negative for apnea, cough, choking, chest tightness and shortness of breath. Gastrointestinal: Negative. Negative for diarrhea, nausea and vomiting. Genitourinary: Negative. Musculoskeletal: Positive for arthralgias, back pain, gait problem, joint swelli ng, myalgias, neck pain and neck stiffness. Skin: Positive for wound. Neurological: Positive for weakness and headaches. Negative for dizziness, tremo rs, seizures, syncope, facial asymmetry, speech difficulty, light-headedness and numbness. PAST MEDICAL HISTORY REVIEWED MEDICAL: Patient has [...] SUGAR DIAGNOSTIC (ACCU-CHEK ACTIVE TEST) MISC STRP CIPROFLOXACIN HCL (CIPRO) 500 MG TABLET CLOPIDOGREL (PLAVIX) 75 MG TABLET ESOMEPRAZOLE MAGNESIUM (NEXIUM) 10 MG SUSPENSION DELAYED RELEASE EZETIMIBE (ZETIA) 10 MG TABLET FENOFIBRATE NANOCRYSTALLIZED (TRICOR) 145 MG TABLET FLUOXETINE (PROZAC) 20 MG CAPSULE FLUTICASONE (FLONASE) 50 MCG/SPRAY SPRAY, SUSPENSION FLUTICASONE (FLOVENT HFA) 110 MCG/ACTUATION HFA AEROSOL INHALER GABAPENTIN (NEURONTIN) 100 MG CAPSULE IBUPROFEN (MOTRIN) 200 MG TABLET ISOSORBIDE MONONITRATE (IMDUR) 60 MG EXTENDED RELEASE 24 HOUR TABLET LORATADINE (CLARITIN) 10 MG TABLET LORAZEPAM (ATIVAN) 1 MG TABLET MAGNESIUM OXIDE 250 MG ORAL TAB MULTIVITAMIN PO NICOTINE TRANSDERMAL NITROSTAT 0.4 MG TABLET, SUBLINGUAL NYSTATIN (MYCOSTATIN) 100,000 UNIT/ML SUSPENSION OLANZAPINE (ZYPREXA) 2.5 MG TABLET OXYCODONE (OXYCONTIN) 10 MG CONTROLLED RELEASE 12 HOUR CRUSH RESISTANT [...] TAMSULOSIN (FLOMAX) 0.4 MG CAPSULE TEMAZEPAM (RESTORIL) 15 MG CAPSULE TRAZODONE (DESYREL) 50 MG TABLET Medications Modified during this Encounter Medications Discontinued during this Encounter Objective PHYSICAL EXAM INITIAL VS BP: 139/70 (04/22/17 113), Heart Rate: 80 bpm (04/22/171136), Resp: 24 ( 113), Temp: 98.9 F (37.2 C) (04/22/17 113), Temp src: Tympanic ( 1137), SpO2: 94 % (04/22/17 1137), Height: 5' 6" (167.6 cm) (04/22/17 1137), W eight: 81.6 kg (180 lb) (04/22/17 113), BMI (Calculated): 29.07 (04/22/17 113) No LMP for male patient. Physical Exam Constitutional: He is oriented to person, place, and time. Vital signs are anish l. He appears well-developed and well-nourished. He is cooperative. Non-toxic a ppearance. He does not have a sickly appearance. He appears ill. No distress. Agitated. Appears uncomfortable. HENT: Head: Normocephalic and atraumatic. Nose: Nose normal. Mouth/Throat: Oropharynx is clear and moist and mucous membranes are normal. No oropharyngeal exudate. Cardiovascular: Normal rate, regular rhythm, normal heart sounds and normal puls es. Pulmonary/Chest: Effort normal and breath sounds normal. No accessory muscle usa ge. No respiratory distress. He has no decreased breath sounds. He has no wheeze s. He has no rhonchi. He has no rales. He exhibits no tenderness. Musculoskeletal: He exhibits edema and tenderness. He exhibits no deformity. Right knee: He exhibits swelling. He exhibits normal range of motion, no de formity, no laceration and no erythema. Tenderness found. Moderate swelling to right knee. Pain to multiple joints. No other swelling note d. Neurological: He is alert and oriented to person, place, and time. Skin: Skin is warm and dry. No rash noted. He is not diaphoretic. There is pallo r. Surgical wound clean and well approximated. No obvious infection. Multiple skin abrasions to lower extremities. Psychiatric: His speech is normal. Judgment normal. His mood appears anxious. He is agitated. Cognition and memory are normal. He exhibits a depressed mood. Anxious and upset. Appears related to pain. Nursing note and vitals reviewed. DIAGNOSTICS LAB: Labs this ED Encounter CBC WITH DIFFERENTIAL - Abnormal Result Value WBC 15.9 (*) RBC 4.15 (*) HEMOGLOBIN 11.6 (*) HEMATOCRIT 34.8 (*) PLATELETS 643 (*) MPV 7.8 (*) NEUTROPHILS 75 (*) LYMPHOCYTES 13 (*) NEUTROPHIL ABSOLUTE 11.96 (*) MONOCYTE ABSOLUTE 1.69 (*) IMMATURE GRANULOCYTES ABSOLUTE 0.12 (*) MCV 83.9 MCH 28.0 MCHC 33.3 RDW 13.4 RDW-STDEV 41.5 MONOCYTES 11 EOSINOPHILS 0 BASOPHILS 0 IMMATURE GRANULOCYTES 1 LYMPHOCYTE ABSOLUTE 2.11 EOSINOPHIL ABSOLUTE 0.03 BASOPHILS ABSOLUTE 0.03 COMPREHENSIVE METABOLIC PANEL - Abnormal SODIUM 128 (*) CHLORIDE 88 (*) GLUCOSE 201 (*) ALBUMIN 3.1 (*) ALKALINE PHOSPHATASE 144 (*) POTASSIUM 4.3 CO2 24 CALCIUM 9.2 BUN 14 CREATININE 0.70 TOTAL PROTEIN 7.3 BILIRUBIN TOTAL 0.4 AST 39 ALT 24 GFR >60 GFR, >60 ANION GAP 16 RADIOLOGY: No orders to display EKG: PROCEDURES Procedures MEDICAL DECISION MAKING AND PLAN OF CARE [facility] ED Course to room for eval. Family demanding transfer immediately to [facility]. Informed will need to make sure is medically stable before can transfer. Sister ok with basic labs and assessment. Refused any imaging or further eval. CBC with elevated WBC noted and hyponatremia on CMP. Platelets elevated. Offered again to do further eval including recheck UA from r ecent infection but sister request transfer aruna. This provider spoke with Dr. Couch to update. Ok to transfer. Spoke with hospitalist Dr. Hartman- updated on H&P. Dc yesterday for UTI and hyponatremia. With drop in NA and elevated WBC concern is ongoing. Will accept transfer and admit to medical. Will transfer via ALS. patient is stable at this time. Resting after pain intervention. Medications Administered During the ED Stay from 04/22/2017 1128 to 04/22/2017 1 306 Date/Time Order Dose Route Action 04/22/2017 1141 fentaNYL PF (SUBLIMAZE) 50 mcg/mL injection 50 mcg 50 mcg IV P ush 04/22/2017 1142 sodium chloride 0.9 % flush injection 3 mL 3 mL IV Push 04/22/2017 1155 LORazepam (ATIVAN) 2 mg/mL injection 0.5 mg 0.5 mg IV Push . New Prescriptions for this Encounter LAST VS BP: 102/58 (04/22/17 1250), Heart Rate: 76 bpm (04/22/17 1250), Resp: 20 ( 1250), Temp: (!) 95.7 F (35.4 C) (04/22/17 1250), Temp src: Tympanic ( 1250), SpO2: 97 % (04/22/17 1250) CLINICAL IMPRESSION Final diagnoses: [N39.0] Complicated UTI (urinary tract infection) (Primary) [E87.1] Hyponatremia DISPOSITION, EDUCATION AND MEDICATION RECONCILIATION Medications reconciled. See after visit summary for patient education on discha rged patients. ATTESTATION STATEMENTS documented in this encounter Plan of Treatment Not on filedocumented as of this encounter Procedures Comments Procedure Name Priority Date/Time Associated Diag nosis CBC WITH DIFFERENTIAL Stat 04/22/2017 11:43 AM CDT COMPREHENSIVE METABOLIC Stat 04/22/2017 PANEL 11:43 AM CDT documented in this encounter Results * COMPREHENSIVE METABOLIC PANEL (04/22/2017 11:43 AM CDT) SODIUM 128 (L) 136 - 145 mmol/L [facility] POTASSIUM 4.3 3.5 - 5.1 mmol/L [facility] [place] CHLORIDE 88 (L) 98 - 107 mmol/L [facility] CO2 24 22 - 29 mmol/L [facility] CALCIUM 9.2 8.8 - 10.2 mg/dL [facility] [place] BUN 14 8 - 23 mg/dL [facility] CREATININE 0.70 0.67 - 1.17 mg/dL [facility] [place] GLUCOSE 201 (H) 70 - 100 mg/dL [facility] [place] TOTAL PROTEIN 7.3 6.6 - 8.7 g/dL [facility] ALBUMIN 3.1 (L) 3.5 - 5.2 g/dL [facility] BILIRUBIN TOTAL 0.4 <=1.2 mg/dL [facility] ALKALINE 144 (H) 40 - 129 U/L [facility] [place] AST 39 <=41 U/L [facility] [place] [facility] ALT 24 10 - 50 U/L [facility] GFR >60 >=60 mL/min/1.73 sq [facility] Comment: meter LABORATORY eGFR has not been validated [facility] for use in the elderly (> [...] result. GFR, >60 >=60 mL/min/1.73 sq [facility] meter [facility] [place] ANION GAP 16 4 - 20 mmol/L [facility] [place] [facility] Specimen Blood Performing Organization Address City/State/Zipcode Ph one Number [facility] CLIA# [id number] [place], [place] [address] - [place] [address] [facility] [facility] * CBC WITH DIFFERENTIAL (04/22/2017 11:43 AM CDT) WBC 15.9 (H) 3.6 - 11.1 K/uL [facility] [place] RBC 4.15 (L) 4.49 - 5.52 M/uL [facility] [place] HEMOGLOBIN 11.6 (L) 13.3 - 16.5 g/dL [facility] [place] HEMATOCRIT 34.8 (L) 40.7 - 48.9 % [facility] [place] MCV 83.9 82.7 - 97.1 fL [facility] [place] MCH 28.0 27.1 - 32.3 pg [facility] [place] MCHC 33.3 31.3 - 34.9 g/dL [facility] [place] RDW 13.4 11.5 - 14.7 % [facility] [place] RDW-STDEV 41.5 37.2 - 47.6 fL [facility] [place] PLATELETS 643 (H) 136 - 352 K/uL [facility] [place] MPV 7.8 (L) 8.6 - 11.8 fL [facility] [place] NEUTROPHILS 75 (H) 44 - 74 % [facility] [place] LYMPHOCYTES 13 (L) 16 - 44 % [facility] [place] MONOCYTES 11 4 - 11 % [facility] [place] EOSINOPHILS 0 0 - 6 % [facility] [place] BASOPHILS 0 0 - 1 % [facility] [place] IMMATURE 1 0 - 1 % [facility] GRANUL[facility] [place] NEUTROPHIL 11.96 (H) 1.54 - 7.18 K/uL [facility] [place] LYMPHOCYTE 2.11 0.69 - 3.61 K/uL [facility] [place] MONOCYTE 1.69 (H) 0.19 - 0.95 K/uL [facility] [place] EOSINOPHIL 0.03 0.00 - 0.44 K/uL [facility] [place] BASOPHILS 0.03 0.00 - 0.10 K/uL [facility] ABSOLUTE [facility] [place] IMMATURE 0.12 (H) 0.00 - 0.09 K/uL [facility] GRANULOCYTES [facility]OLUTE [facility] [place] Specimen Blood Performing Organization Address City/State/Zipcode Ph one Number [facility] CLIA# [id number] [place] [address] - [place] [address] documented in this encounter Visit Diagnoses Diagnosis Complicated UTI (urinary tract infectio n) - Primary Urinary tract infection, site not speci fied Hyponatremia Hyposmolality and/or hyponatremia documented in this encounter Administered Medications Action Date Dose Rate Site Medication Order MAR Action 04/22/2017 11:41 AM CDT 50 mcg fentaNYL PF (SUBLIMAZE) 50 mcg/mL Push injection 50 mcg 50 mcg, IV, ONE TIME ONLY, 1 dose, Nancy 04/22/17 at 1145, Routine 04/22/2017 11:55 AM CDT 0.5 mg LORazepam (ATIVAN) 2 mg/mL injection 0.5 Push mg 0.5 mg, IV, ONE TIME ONLY, 1 dose, Nancy 04/22/17 at 1145, Routine 04/22/2017 11:42 AM CDT 3 mL sodium chloride 0.9 % flush injection 3 Push mL 3 mL, IV, ONE TIME ONLY, 1 dose, Nancy 04/22/17 at 1145, Routine documented in this encounter Additional Health Concerns Assessment Noted Time A Hypertension Plan of Care has been documented for t pati patient 02/12/2017 12:54 PM CDT documented as of this encounter
--- OUTSIDE RECORDS SUMMARY | 2020-03-24 14:01 | XMS REPORT | Encounter Summary ---
Author Author [facility] Organization [facility] Address Unknown Phone Unavailable Care Team Providers Care Business Objects Name Role Phone Claus Couch MD PCP Reason for Visit * Reason Comments Medication Refill Encounter Details Care Team Description Date Type Department Claus Couch MD [address] [place] [address] 04/21/2017 Refill [facility] Prim[facility] [place] [address] [place] [address] Social History Date Tobacco Use [...]
--- OUTSIDE RECORDS SUMMARY | 2020-03-24 14:02 | XMS REPORT | Encounter Summary ---
Author [facility] Organization [facility] Address Unknown Phone Unavailable Care Team Providers Care Economic Consultant Name Role Phone Claus Couch MD PCP Reason for Visit * Auth/Cert Referred By Contact Referred To Contact Status Reason Specialty Diagnoses / Procedures [facility] [place] [id number] [place] [address] Home Health Encounter Details Care Team Description Date Type Department Aly Colón, Physical Therapist PT - HOME VISIT 04/14/2017 [facility] [address] [place] [address] Social History Date Tobacco Use [...] Signs Reading Time Taken Comments Vital Sign 106/65 04/14/2017 9:11 AM CDT Blood Pressure 100 04/14/2017 9:11 AM CDT Pulse - - Temperature 18 04/14/2017 9:11 AM CDT Respiratory Rate - - Oxygen [...] this visit PT Establish or Upgrade Home 03/25/2017 Home Program exercise Disciplines: program Physical Therapy Active - 1 problem intervention scheduled/documented in this visit PT Gait Training Gait 03/25/2017 Disciplines: evaluation Physical Therapy and training in appropriat e use of assistive devices. Active - 1 problem intervention scheduled/documented in this visit PT Transfer Training Transfer 03/25/2017 Disciplines: Training Physical Therapy Variance Visit Notes Intervention Associated Status Problem/Go al Pt review HEP with demonstration. ther ex: AP, Hs Hip abd, Qs x 20 in sup, LAQ hamstring curls in sitting x 20 (B) LE's. Pt performance much better today min tech v/c's given this day and no complaint of increased pain with any activity. PT establish or upgrade Problem: Completed home program PT Description: Establish Home exercise program for or Upgrade weakness in LEs with goal Home of 4/5 left hip strength Program in order to transfer and gait slowly.. Pt amb x 60' no LOB improved stride no knee wobble no grimace with tstepping or audible disconfort and this time. Pt SBA with amb no usteady behaior/ 20% v/c for hand and ft placement. Pt gait training Problem: Completed Description: PT Gait Evaluate and instruct Training patient and caregivers in safe gait training on all surfaces including step training as needed in home or to exit home, full weight bearing and using rolling walker. Trfs sit to standing no LOB no hand or ft placement v/c's required today. Pt is mod (I0 form chair at this time/ PT transfer training Problem: Completed Description: PT Evaluate and instruct Transfer patient/caregiver in safe Training transfer training using appropriate body mechanics, full weight bearing, and necessary equipment. documented in this encounter Home Health Visit - Actions and Narratives Pt performed ther ex as per HEP at this time (I) in sup and sitting (B) LE's, Trfs sit to stand mod (I) with standing and sitting at this t melvina. Gt with FWW x 60' improved gt pattern at this time due to decreased pain per pt. Pt decreased activity this week due to increased pain. Pt notably better today with activity. documented in this encounter
--- OUTSIDE RECORDS SUMMARY | 2020-03-24 14:02 | XMS REPORT | Encounter Summary ---
Author Author [facility] Organization [facility] Address Unknown Phone Unavailable Care Team Providers Care Gun Numberer Name Role Phone Claus Couch MD PCP Reason for Visit * Auth/Cert Referred By Contact Referred To Contact Status Reason Specialty Diagnoses / Procedures [facility] [place] [id number] [place] [address] Home Health Encounter Details Care Team Description Date Type Department Marissa Pitts RN SN - HOME VISIT 04/15/2017 [facility] [address] [place] [address] Social History Date Tobacco [...] scheduled/documented in this visit Home Safety Home 03/25/2017 Disciplines: safety Alf Active - 1 problem intervention scheduled/documented in this visit Physical Discomfort Alteration 03/25/2017 Disciplines: in comfort Alf Active - 1 problem intervention scheduled/documented in this visit Pulse Oximetry Skilled 03/25/2017 Disciplines: assessment Alf and monitoring of O2 saturation s. Active - 1 problem intervention scheduled/documented in this visit Skilled Observation and Skilled 03/25/2017 Assessment nursing Disciplines: observatio Alf n and [...] to patient Fall Risk Assessment. Skilled assessment pain Problem: Completed Description: Physical [...]
--- OUTSIDE RECORDS SUMMARY | 2020-03-24 14:02 | XMS REPORT | Encounter Summary ---
Author Author [facility] Organization [facility] Address Unknown Phone Unavailable Care Team Providers Care Breaker Engineer Name Role Phone Claus Couch MD PCP Reason for Visit * Reason Comments Fall feel last night landed on l eft hip. left leg shorten * Auth/Cert Referred By Contact Referred To Contact Status Reason Specialty Diagnoses / Procedures [facility] Emergency [address] [place] [address] Emergency Medicine Encounter Details Care Team Description Date Type Department Claus Couch MD [address] [place] [address] Acute cystitis without hematuria 04/16/2017 [facility] - Encounter [facility] 04/19/2017 [address] [place] [address] Social History Date Tobacco Use [...] Signs Reading Time Taken Comments Vital Sign 104/63 04/19/2017 10:55 AM CDT Blood Pressure 79 04/19/2017 10:55 AM CDT Pulse 37.3 C (99.1 F) 04/19/2017 10:55 AM CDT Temperature 22 04/19/2017 10:55 AM CDT Respiratory Rate 95% 04/19/2017 10:55 AM CDT Oxygen Saturation - - Inhaled Oxygen Concentration 80.4 kg (177 lb 3 oz) 04/16/2017 11:54 AM CDT Weight 167.6 cm (5' 6") 04/16/2017 11:54 AM CDT Height 28.6 04/16/2017 11:54 AM CDT Body Mass Index documented in this encounter Discharge Summaries * Claus Couch MD - 04/19/2017 8:07 AM CDT Physician Discharge Summary Patient: Oliverio Tinsley / 66 y.o. / male : 1950 Admit date: 04/16/2017 Indication for Admission: fall with hyponatremia and seizure Admitting Diagnoses: same Attending Physician: Claus Couch MD Consults: none. Problem List: Principal Problem: Acute cystitis without hematuria Active Problems: Left hip pain Frequent falls Hyponatremia Oral thrush Treatments: IV hydration. Hospital Course: Oliverio Tinsley is a 66 y.o. male admitted from home secondary to fall the patient has been through orif a few weeks ago has been having incre ased difficulty at home and fell has been haivng severe pain is controlled some what with pain meds but is still needing fentanyl. Will change to swing bed to have him work with Physical Therapy as still a 2-3 p erson assist Admission Condition: mildly deteriorating. Discharge date: 04/19/2017 Discharging Physician: Claus Couch MD Discharge Exam: Physical Exam: BP 114/67 (BP Location: Left arm) | Pulse 89 | Temp 99.1 F (37.3 C) (Tympani c) | Resp 24 | Ht 5' 6" (1.676 m) | Wt 80.4 kg (177 lb 3 oz) | SpO2 94% | BMI 2 8.6 kg/m2 General appearance: alert, in no distress [...] rios or thighs, normal strength, normal tone Discharge Condition: stable. Discharge Diagnoses: as admitting Disposition: swing documented in this encounter Discharge Instructions * Instructions* Rosalinda Singh RN - 04/19/2017 Patient's level of care changed to [facility] for additional IV antibiotics and physica l therapy documented in this encounter Medications at Time [...] BY MOUTH EVERY DAY IN THE EVENING 04/09/2017 04/21/2017 oxyCODONE-acetaminophen Take 1 Tablet 60 Tablet 0 (PERCOCET) 10-325 mg by mouth Tablet every 6 hours as needed for Pain, Severe. Max Daily Amount: 4 Tablets 03/25/2017 07/21/2017 FLUoxetine (PROzac) 20 mg TAKE 2 60 Capsule 5 capsule CAPSULES BY MOUTH EVERY DAY. 02/22/2017 04/21/2017 temazepam (RESTORIL) 15 Take 1 30 Capsule 5 mg capsule Capsule (15 mg) by mouth nightly as needed for Insomnia. 02/12/2017 07/21/2017 gabapentin (NEURONTIN) Take 1 30 Capsule 3 100 mg capsule Capsule (100 mg) by mouth daily at bedtime. 02/01/2017 11/23/2017 clopidogrel (PLAVIX) 75 Take 1 Tab by 30 Tablet 5 mg Tablet mouth daily. 01/18/2017 04/21/2017 LORazepam (ATIVAN) 1 mg TAKE ONE 60 Tablet 3 tablet TABLET BY MOUTH 2 TIMES A DAY.. 12/29/2016 10/20/2017 ezetimibe (ZETIA) 10 mg Take [...] 50 Administer 2 16 Gram 5 mcg/spray [place], Sprays in Suspension each nostril daily.. 08/16/2015 07/07/2017 PROAIR HFA 90 Take 2 Puffs 8.5 Gram 5 mcg/actuation inhaler by inhalation every 4 hours as needed for Shortness of Breath. 09/10/2010 04/26/2018 MULTIVITAMIN PO Take 1 Tab by 0 mouth daily with lunch. documented as of this encounter Progress Notes * Odell Casillas, Physical Therapist - 04/19/2017 12:17 PM CDT PHYSICAL THERAPY TREATMENT NOTE Date of service: 04/19/2017 Time In: 9:30 Time Out: 9:45 Total Time: 15 Therapy Recommendation for DC Planning: Long Term Facility Charges - IN MINUTES: Therapeutic Exercise- 15 PRECAUTIONS: fall precautions Equipment:: IV, Oxygen 0 Liters/min and Telemetry Weight Bearing: full weight bearing on right lower, left lower extremity/ies Subjective: Patient reports that he continue to feel pain in movement to his lef t hip and leg Treatment Patient performed supine exercises:AP,HS,HAA x20 reps Education: Patient verbalized understanding, needs reinforcement and will need f urther training in formal therapy sessions with safety education Status After Treatment lying in bed with call light and phone within reach Plan Patient plan of care is progressing 1 2:22 PM CDT * Pilar Singh RN - 04/19/2017 11:25 AM CDT POC glucose taken. Result BS 229. Gave 3 Units of humalog per ordered sliding sc lynda. Result did not download in EPIC. Notified electrician supervisor and lab. * Jeri Garcia RN - 04/18/2017 5:10 PM CDT Pt tolerated supper well. Evening pills given to patient, pt stated "Did you ernesto ng the goodies in" patient was questioned about what he was talking about, patie nt laughing stated "You know what I mean those pain pills I ask for every four h ours" patient assured that pain medication was brought in. Pt stated "You know I want to you I'm going to get a contract and we are going to get ". This staff development manager attempted to change subject that Dr Couch would be looking at how much tylenol he was getting in twenty four hours and may have to change t he dosage of medication. Pt stated "Well I need my meds". * Aries Fraser MD - 04/18/2017 9:47 AM CDT Admit Date: 04/16/2017 Subjective: Patient has no new complaints. Reports pain not well controlled despite oxy ten and fentanyl in the last 3 hours. Reports pain is bad even at rest. Objective: Patient Vitals for the past 8 hrs: BP Temp Temp src Pulse Resp SpO2 04/18/17 0724 121/78 98.3 F (36.8 C) Tympanic 87 20 94 % 04/18/17 0646 - - - 78 18 - 04/18/17 0636 - - - 76 18 95 % 04/18/17 0441 124/74 98.5 F (36.9 C) Tympanic 91 18 94 % Intake/Output Summary (Last 24 hours) at 04/18/17 0947 Last data filed at 04/18/17 0929 Gross per 24 hour Intake 1650 ml Output 2190 ml Net -540 ml Recent Labs 04/16/17 0744 04/17/17 0600 04/18/17 0530 WBC 15.8* -- 11.3* HGB 12.5* -- 10.3* HCT 36.3* -- 30.5* PLT 766* -- 574* NA 123* 128* 132* K 4.4 4.3 4.3 CL 84* 91* 94* CO2 20* 22 23 BUN 10 7* 10 CREAT 0.83 0.76 0.80 GLUCOSE 230* 195* 209* ALT 10 -- 9* AST 13 -- 13 INR 1.2* -- -- Lungs: clear to auscultation bilaterally, normal respiratory effort Heart: regular rate and rhythm Abdomen: Soft, non-tender. Bowel sounds normal. No masses, no organomegaly. Extremities: extremities no cyanosis or edema, no edema, redness or tenderness i n the calves or thighs Assessment: Principal Problem: Acute cystitis without hematuria Active Problems: Left hip pain Frequent falls Hyponatremia Oral thrush Plan: See orders. UC still pending May need to repeat xray of hip; will ask Solomon to eval tomorrow from ortho standp oint. * Jeri Garcia, RN - 04/18/2017 7:30 AM CDT Pt wanting pain medication, it was explained to patient that he had just had a p ill at 0620. Pt getting mad stated "Just call my family I want to go home and di e". Pt holding lt leg stating "its killing me". Fentanyl 50 mcg iv given to eugene ent. 0810 pt wanting pain meds, it was again explained to patient that he just had pa in medications in the last hour. 0925 Dr Fraser here patient moaning aloud and moving back and forth in bed. It was explained to Dr Fraser and to patient That this staff development manager had not had a chance to pass morning meds including more pain medication and that it would be done aruna. Percocet 10/325mg two given to patient, patient attitude changed, pt now j oking with staff, telling staff how much he appreciates her and cares for her. 1030 patient resting quietly in bed. * Christi Dalton RN - 04/17/2017 12:42 PM CDT Patient needing to use commode. Incontinent of large amt of stool in brief. Ann sted to commode with difficulty of one person. No walker in the room. Called fo r help when he was done. Had him stand using a walker, with assist of 2 people and a 3rd person cleaning his bottom. Very unsteady and weak on his feet. Had to keep queing him to stand up tall. Tir es easily and wants to sit back down before cleaning completed. documented in this encounter H&P Notes * Self, Aries Montelongo MD - 04/17/2017 10:02 AM CDT Subjective: Patient is a 66 y[address] male of Dr Fernandez who was admitted yesterday afte r a fall at home. EMS was actiivated twice; pt refused transport first time, the n relented due to the intensity of his pain, which he rated as severe. He has noah serrato frequently of late; a few months ago fell and broke his left hip (same hip that he injured yesterday). He had an ORIF left hip and went back home. He has some help at home, but otherwise lives alone. PT has been involved recently, a long with home care nursing. Pt's focus during our interview is on pain control . He is getting fentanyl 50 mics and would rather have his home dose of oxycodon e, ten mg, which he states he has to take two of at times. His home med list do es not reflect that. Pt denies chest pain, dyspnea on exertion, and denies rece nt seizure. Patient Active Problem List Diagnosis Date Noted Hyponatremia 04/17/2017 Left hip pain 04/16/2017 Hyponatremia 04/16/2017 Frequent falls 04/16/2017 Acute cystitis without hematuria 04/16/2017 Closed displaced fracture of middle phalanx of right little finger 6 Cigarette dependence 08/26/2015 Ulcers of both lower legs, limited to breakdown of skin 07/15/2015 Status post right inguinal hernia repair 03/14/2015 Status post colonoscopy 01/10/2014 Diabetes mellitus 04/25/2013 CAD (coronary artery disease) 04/25/2013 COPD (chronic obstructive pulmonary disease) 04/25/2013 Seizure disorder 04/25/2013 Depression 04/25/2013 Suicidal behavior 04/25/2013 Carpal tunnel syndrome 11/30/2012 Osteoarthritis of right knee 10/24/2012 LFT elevation 10/13/2012 Renal stone 10/12/2012 Back pain 10/12/2012 Bradycardia 09/05/2012 Status post laparoscopic appendectomy 05/28/2012 Umbilical hernia without mention of obstruction or gangrene 05/28/2012 Tubular adenoma 02/05/2009 Hyperlipidemia 11/12/2008 Essential hypertension Seizure Hypertrophy of prostate without urinary obstruction and other lower urinary tract symptoms (LUTS) Neurogenic bladder, NOS Unspecified glaucoma Bipolar disorder, unspecified Past Medical History: Diagnosis Date Anxiety Asthma [...] 03/08/2015 HERNIA INGUINAL REPAIR performed by Mary Moore MD at [facility] [place] HX HERNIA REPAIR 1989 And age 4 HX LAP CHOLECYSTECTOMY 05/17/07 HX SURGICAL OTHER 05/2001 4 bypass HX SURGICAL OTHER 2001 Eyelids shortened HX SURGICAL OTHER 1999 Toenails removed HX SURGICAL OTHER 11/2001 PEA with IOL, OU HX SURGICAL OTHER 04/12 Heart stent HX SURGICAL OTHER 09/12 Stents X5 HX SURGICAL OTHER 08/14 Stents HX SURGICAL OTHER 07/11 Colonoscopy HX TURP 08/2003 UT COLONOSCOPY FLX DX W/COLLJ SPEC WHEN PFRMD 02/01/2009 COLONOSCOPY performed by MARY MOORE at [facility] OR UT COLONOSCOPY FLX DX W/COLLJ SPEC WHEN PFRMD 12/28/2013 COLONOSCOPY performed by Mary Moore MD at [facility] [place] UT LAP,APPENDECTOMY 05/28/2012 APPENDECTOMY LAPAROSCOPIC performed by Mary Moore MD at [facility] [place] UT REPAIR UMBILICAL COLLEEN,5+Y/O,REDUC 05/28/2012 HERNIA UMBILICAL REPAIR performed by Mary Moore MD at [facility] [place] PSA 09/13 Prescriptions Prior to Admission Medication Sig Dispense Refill Last Dose simvastatin (ZOCOR) 40 mg tablet TAKE ONE TABLET (40MG) BY MOUTH EVERY DAY I N THE EVENING 90 Tablet 1 04/15/2017 at Unknown time esomeprazole Magnesium (NexIUM) 10 mg suspension delayed release Take 40 mg by mouth daily. 04/15/2017 at Unknown time ibuprofen (MOTRIN) 200 mg tablet Take 400 mg by mouth daily. 04/15/2017 at U nknown time FLUoxetine (PROzac) 20 mg capsule TAKE 2 CAPSULES BY MOUTH EVERY DAY. 60 Cap j carlos 5 04/15/2017 at Unknown time isosorbide mononitrate (IMDUR) 60 mg Extended Release 24 hour tablet TAKE ON E TABLET BY MOUTH 2 TIMES A DAY 60 Tablet 5 04/15/2017 at Unknown time loratadine (CLARITIN) 10 mg tablet Take 1 Tab by mouth daily. 30 Tablet 5 04/15/2017 at Unknown time temazepam (RESTORIL) 15 mg capsule Take 1 Capsule (15 mg) by mouth nightly a s needed for Insomnia. 30 Capsule 5 04/15/2017 at Unknown time phenytoin sodium (DILANTIN EXTENDED) 100 mg extended release capsule Take 20 0 mg by mouth 2 times daily . 04/15/2017 at Unknown time gabapentin (NEURONTIN) 100 mg capsule Take 1 Capsule (100 mg) by mouth daily at bedtime. 30 Capsule 3 04/15/2017 at Unknown time pantoprazole (PROTONIX) 40 mg Tablet, Delayed Release (E.C.) Take 1 Tablet ( 40 mg) by mouth daily. 30 Tablet 5 04/15/2017 at Unknown time clopidogrel (PLAVIX) 75 mg Tablet Take 1 Tab by mouth daily. 30 Tablet 04/15 at Unknown time LORazepam (ATIVAN) 1 mg tablet TAKE ONE TABLET BY MOUTH 2 TIMES A DAY.. 60 T ablet 3 04/15/2017 at Unknown time ezetimibe (ZETIA) 10 mg tablet Take 1 Tab by mouth daily at bedtime. 30 Tabl et 5 04/15/2017 at Unknown time OLANZapine (ZyPREXA) 2.5 mg tablet Take 1 Tab by mouth daily at bedtime. 30 Tablet 5 04/15/2017 at Unknown time ramipril (ALTACE) 10 mg capsule Take 1 Cap by mouth daily. 90 Capsule 1 2016 at Unknown time bethanechol (URECHOLINE) 25 mg tablet TAKE ONE TABLET BY MOUTH FOUR TIMES A DAY 120 Tablet 5 04/15/2017 at Unknown time pioglitazone (ACTOS) 30 mg tablet Take 1 Tab by mouth daily. 90 Tablet 1 04/15 at Unknown time tamsulosin (FLOMAX) 0.4 mg capsule TAKE ONE CAPSULE BY MOUTH EVERY DAY 30 [place] NUTES AFTER SUPPER 30 Capsule 5 04/15/2017 at Unknown time fenofibrate nanocrystallized (TRICOR) 145 mg tablet Take 1 Tab by mouth jono y with supper. 30 Tablet 5 04/15/2017 at Unknown time fluticasone (FLOVENT HFA) 110 mcg/actuation HFA Aerosol Inhaler Take 1 Puff by inhalation 2 times daily.. 12 Gram 5 traZODone (DESYREL) 50 mg tablet Take 1 Tab by mouth daily at bedtime.. 30 T ablet 3 04/15/2017 at Unknown time PROAIR HFA 90 mcg/actuation inhaler Take 2 Puffs by inhalation every 4 hours as needed for Shortness of Breath. 8.5 Gram 5 magnesium oxide 250 mg Oral Tab Take 1 Tab by mouth 3 times daily. 7 at Unknown time ASPIRIN EC 81 mg Oral TbEC Take 81 mg by mouth daily. 04/15/2017 at Unknown time MULTIVITAMIN PO Take 1 Tab by mouth daily with lunch. 04/15/2017 at Unknown time BETIMOL 0.5 % OP Drop Administer 1 Drop in both eyes 2 times daily. 017 at Unknown time oxyCODONE-acetaminophen (PERCOCET) 10-325 mg Tablet Take 1 Tablet by mouth e very 6 hours as needed for Pain, Severe. Max Daily Amount: 4 Tablets 60 Tablet 0 Unknown at Unknown time NICOTINE TRANSDERMAL Apply 14 mg to skin as directed daily. Unknown at Unk nown time SENNOSIDES ORAL Take 1 Tablet by mouth 2 times daily. Unknown at Unknown t melvina [DISCONTINUED] albuterol HFA 90 mcg inhaler Take 2 Puffs by inhalation every 4 hours as needed for Shortness of Breath. Unknown at Unknown time NITROSTAT 0.4 mg Tablet, Sublingual DISSOLVE 1 TABLET UNDER TONGUE EVERY 5 M INUTES NEEDED FOR CHEST PAIN. DO NOT EXCEED 3 DOSES. 25 Tablet PRN Unknown at Unknown time fluticasone (FLONASE) 50 mcg/spray [place], Suspension Administer 2 Sprays in each nostril daily.. 16 Gram 5 12/07/2016 polyethylene glycol 3350 (MIRALAX) 17 gram/dose Powder Take 1 SCOOP (17 Gram ) by mouth daily Dissolve in 8 ounces of fluid and drink entire liquid. 527 Gram 0 Unknown at Unknown time blood sugar diagnostic (ACCU-CHEK ACTIVE TEST) Misc Strp In the am & pm prn 1 Package 0 Unknown at Unknown time Allergies Allergen Reactions Codeine Unknown Doxycycline Rash Penicillins Hives Phenobarbital Weakness "relaxes me too much" Piperacillin-Tazobactam Hives and Rash Breaks out Septra [Sulfamethoxazole-Trimethoprim] Nausea and Vomiting Terazosin Other (See Comments) Chest heaviness, chest pain Valium [Diazepam] Other (See Comments) "stops breathing, no pulse" Unresponsiveness "stops breathing, no pulse" Social History Substance Use Topics Smoking status: Current Every Day Smoker Packs/day: 1.00 Years: 40.00 Types: Cigarettes Last attempt to quit: 03/08/1995 Smokeless tobacco: Never Used Comment: Restarted smoking cigarettes 1 pack every two weeks since 05/2013. Alcohol use No Family History Problem Relation Age of Onset Other Mother Blood pressure Diabetes Mother Respiratory Disease Mother Asthma Mother Other Sister Blood pressure Diabetes Sister Respiratory Disease Sister Heart Disease Sister Asthma Sister Lung Cancer Brother Seizures Brother Other Father "brain anuerysm" Healthy Daughter Heart Disease Son Healthy Daughter Healthy Daughter Healthy Son Healthy Son Healthy Son Healthy Son Review of Systems Allergic/Immunologic: negative. Cardiovascular: negative for chest pain. Constitutional: positive for fatigue. Ears, nose, mouth, throat, and face: negative. Eyes: negative. Gastrointestinal: negative for diarrhea and vomiting. Genitourinary:negative. Hematologic/lymphatic: negative. Integument/breast: negative. Musculoskeletal:positive for arthralgias. Neurological: positive for weakness. Respiratory: negative for shortness of breath. Objective: Patient Vitals for the past 8 hrs: BP Temp Temp src Pulse Resp SpO2 04/17/17 0915 135/72 99 F (37.2 C) Tympanic 100 20 97 % 04/17/17 0705 - - - - 18 - 04/17/17 0655 - - - - 20 96 % 04/17/17 0323 125/77 99.7 F (37.6 C) Tympanic - 22 97 % Intake/Output Summary (Last 24 hours) at 04/17/17 1003 Last data filed at 04/17/17 0640 Gross per 24 hour Intake 3796.67 ml Output 3575 ml Net 221.67 ml BP 135/72 (BP Location: Left arm, Patient Position (BP): Supine) | Pulse 100 | T emp 99 F (37.2 C) (Tympanic) | Resp 20 | Ht 5' 6" (1.676 m) | Wt 80.4 kg (1 77 lb 3 oz) | SpO2 97% | BMI 28.6 kg/m2 General appearance: alert, in no distress Head: atraumatic, Normocephalic, without obvious abnormality Eyes: conjunctivae/corneas clear. PERRL, EOM's intact. Throat: Lips, mucosa (moist), and tongue normal. Teeth and gums normal Lungs: clear to auscultation bilaterally, normal respiratory effort Heart: normal rate and regular rhythm Abdomen: Soft, non-tender. Bowel sounds normal. No masses, no organomegaly. Extremities: extremities normal, atraumatic, no cyanosis or edema, no edema, red ness or tenderness in the calves or thighs, normal strength, normal tone Skin: Skin color, texture, turgor normal. No rashes or lesions Neurologic: Grossly normal Musculoskeletal: abnormal exam of left hip, very tender. Results for orders placed during the hospital encounter of 04/16/17 XR HIP 2 OR 3 VIEWS LT Narrative 2 /3 VIEWS LEFT HIP History: 66 years Male with fall, trauma, pain, recent surgery via [facility]. Findings: Penile prosthesis. Intramedullary tanvir left femur. Angled interlocking medullary lag screw proximally. Open reduction internal fixation comminuted left proximal femoral fracture with mild varus angulation, involving the lesser trochanter, extending to the superior greater trochanteric region and located above the level of the greater trochanter obliquely. Overlying soft tissue swelling. Distal interlocking intramedullary tanvir femoral screw. Soft tissue postop changes right thigh. No complete or significant osseous union proximal femoral fracture. No additional acute osseous or acute soft tissue findings. Surgical clips right hemipelvis soft tissues. Bowel gas over the sacrum. Comparison 10/11/2012, intervening postop changes proximal left femur, otherwise no change. Impression Impression: Fracture proximal left femur. This has been surgically fixated recently. Open reduction and internal fixation. No complete or significant osseous union in the fracture site. Mild varus angulation. No additional acute osseous or acute soft tissue findings. Intrepreting radiologist contact #: [phone]. Data Review: CBC: Lab Results Component Value Date/Time WBC 15.8 (H) 04/16/2017 07:44 AM RBC 4.39 (L) 04/16/2017 07:44 AM HGB 12.5 (L) 04/16/2017 07:44 AM HCT 36.3 (L) 04/16/2017 07:44 AM PLT 766 (H) 04/16/2017 07:44 AM BMP: Lab Results Component Value Date/Time GLUCOSE 195 (H) 04/17/2017 06:00 AM NA 128 (L) 04/17/2017 06:00 AM K 4.3 04/17/2017 06:00 AM CL 91 (L) 04/17/2017 06:00 AM CO2 22 04/17/2017 06:00 AM BUN 7 (L) 04/17/2017 06:00 AM CREAT 0.76 04/17/2017 06:00 AM CA 8.9 04/17/2017 06:00 AM Radiology review: Results for orders placed or performed during the hospital encounter of 11/26/16 XR CHEST PA OR AP Narrative Chest, AP portable History: Cough and Congestion. Comparison: 09/04/2016. Status post CABG. Heart size, pulmonary vascularity and mediastinum are normal. Trachea midline. Diana within normal limits. Lungs are clear. Skeletal structures are within normal limits for the patient's age. No significant interval change. Impression Impression: 1. Status post CABG. 2. No active cardiopulmonary disease. Results for orders placed or performed during the hospital encounter of 01/16/16 XR CHEST PA AND LATERAL Narrative Name: OLIVERIO TINSLEY AGE: 65 years EXAM: Chest PA and lateral 2 views INDICATION: 65-year-old male with exacerbation of COPD. COMPARISON: Prior chest performed October 17, 2014. FINDINGS: The patient has undergone previous sternotomy and CABG. Our lateral chest view demonstrates markers in place at the graft sites. There are multiple stents overlying the heart. In particular there appear to be several stents associated with the grafts thems elves. The pulmonary vascularity is within the upper range of normal. The lungs demonstrate diffuse mild to moderate chronic changes. There is no acute chest process or effusions. Impression IMPRESSION: PA and lateral chest demonstrate no acute process. Electronically Signed By: Faraz Anaya MD, Signed On: 01/16/2016 2:55 PM Results for orders placed or performed during the hospital encounter of 06/27/14 XR RIBS UNILATERAL LEFT W PA CHEST Narrative PA chest with left ribs HISTORY: Fall, pain PA chest with 4 views of the ribs are obtained. Exam is grossly suboptimal secondary to poor visualization of the ribs on rib films. The cardiac silhouette and pulmonary vascularity are normal. No infiltrates or masses are seen. There is no pneumothorax. The patient is status post median sternotomy for CABG. There is question of a left sixth rib fracture. No other fractures are seen. No bony masses are noted. Impression IMPRESSION: Suboptimal exam. Question left sixth rib fracture. Results for orders placed or performed during the hospital encounter of 12/09/13 XR RIBS UNILATERAL RIGHT W PA CHEST Narrative PA chest with left ribs History: Chest pain. COMPARISON: May 03, 2013 PA chest with 4 views of left ribs are obtained. Findings: The cardiac silhouette and pulmonary vascularity are normal. No infiltrates or masses seen. There is no evidence of pneumothorax. Rib films do not demonstrate any fractures or bony masses. The patient is status post median sternotomy for apparent CABG. There is a coronary artery stent in place. Impression Impression: Normal chest with ribs. *Note: Due to a large number of results and/or encounters for the requested time period, some results have not been displayed. A complete set of results can be found in Results Review. Assessment: Principal Problem: Acute cystitis without hematuria Active Problems: Left hip pain Frequent falls Hyponatremia Plan: All labs and xray are reviewed and discussed with pt on rounds this am Will go ahead with home dosing of oxycodone, one every four prn or two every six prn. PT to begin working with pt here. Work to correct low Na NS over time should be adequate Cystitis addressed with abx and cx pending. I will follow in Dr Gugnanis absence. See orders documented in this encounter Procedure Notes * David Ferrer MD - 04/19/2017 10:10 AM CDT Associated Order(s): EKG 12-LEAD [address] [place], [place] [address] Patient Name: OLIVERIO TINSLEY CSN: [id number] : 1950 Provider: David Bernard M.D. Admitted: 04/16/2017 ELECTROCARDIOGRAM DATE OF SERVICE: 04/16/2017 04/16/2017 at 0832. The rhythm is regular, sinus in origin with a rate of 96 beats per minute. Limb leads show low voltage. UT interval is prolonged. Compared wit h previous tracing dated November 26 2016, electrical axis has shifted to anish l currently. The rate is faster on the current tracing and UT interval is longer currently. DIAGNOSIS: 1) Sinus rhythm, rate 96 beats per minute. 2) 1st degree AV block. 3) Low voltage limb leads. Dictated by: David Bernard M.D./[employer] D: [id number] V: [id number] cc: Claus Couch M.D. documented in this encounter ED Notes * Macy Vaughn NP - 04/16/2017 7:26 AM CDT HISTORY OF PRESENT ILLNESS Oliverio Tinsley, a 66 y.o. male presents to the ED with a Chief Complaint of Fa ll Subjective HPI Comments: Pt brought in by EMS with left hip pain. States that he fell this morning, EMS called out but pt refused transport. A few hours later he called EM S again, this time agreeing to transport to ED for left hip pain. Pt states that he was trying to urinate this morning when he fell on the left hip. He admits t o frequent falls. He is currently using a wheelchair during the day. He has a hx of left hip fracture a few months ago requiring repair. He lives at home with t he assistance of a caregiver and is also getting PT at home. Caregiver states th at the home health nurse reported some penile discharge at her last visit. He de nies other injuries in today, there was no LOC. He has a seizure disorder, nancy s recent seizures. History provided by: The patient Arrived by: EMS Arrived from: Home Fall REVIEW OF SYSTEMS Review of Systems Constitutional: Negative for appetite change, chills and fever. HENT: Negative for congestion, sore throat and trouble swallowing. Eyes: Negative for visual disturbance. Respiratory: Positive for cough. Negative for shortness of breath and wheezing. Cardiovascular: Negative for chest pain, palpitations and leg swelling. Gastrointestinal: Negative for abdominal pain, nausea and vomiting. Genitourinary: Negative for dysuria and frequency. Musculoskeletal: Positive for arthralgias and myalgias. Skin: Negative for rash. Neurological: Negative for seizures, syncope, light-headedness and headaches. Hematological: Does not bruise/bleed easily. Psychiatric/Behavioral: Negative for sleep disturbance. PAST MEDICAL HISTORY REVIEWED MEDICAL: Patient has a past medical history of Anxiety; Asthma; Cataract; Chronic ischem ic heart disease, unspecified; Contusion, back (08/16/03); COPD (chronic obstruct humberto pulmonary disease); Coronary artery disease; Diabetes; Glaucoma; Seizure dis order; Unspecified disease of respiratory system; Unspecified disorder of lipoid metabolism; Unspecified essential hypertension; and Wrist sprain (08/10). He al so has no past medical history of Latex sensitivity; Obstructive sleep apnea (ad ult) (pediatric); Post-operative nausea and vomiting; or Unspecified adverse eff ect of anesthesia. SURGICAL: Patient has a past surgical history [...] flx dx w/collj spec when pfrmd (12/28/2013); and hernia inguinal repair (Right, 03/08/2015 ). FAMILY: Patient's family history includes Asthma in [...] finger; Left hip pain; Hyponatremia; Frequent falls; and Acute cysti tis without hematuria on his problem list. ALLERGIES Codeine; Doxycycline; Penicillins; Phenobarbital; Piperacillin-tazobactam; Septr a [sulfamethoxazole-trimethoprim]; Terazosin; and Valium [diazepam] HOME MEDICATIONS Patient's Home Medications Current Home Medications ALBUTEROL HFA 90 MCG INHALER ASPIRIN EC 81 MG ORAL TBEC BETHANECHOL [...] NICOTINE TRANSDERMAL NITROSTAT 0.4 MG TABLET, SUBLINGUAL OLANZAPINE (ZYPREXA) 2.5 MG TABLET OXYCODONE-ACETAMINOPHEN (PERCOCET) 10-325 MG TABLET PANTOPRAZOLE [...] Objective PHYSICAL EXAM INITIAL VS BP: (!) 161/82 (04/16/17740), Heart Rate: 97 bpm (04/16/17740), Resp: 20 (940), Temp: 98.4 F (36.9 C) (04/16/17740), Temp src: Oral (740), SpO2: 95 % (04/16/17740), Height: 5' 6" (167.6 cm) (04/16/17740), W eight: 90.7 kg (200 lb) (04/16/17 07), BMI (Calculated): 32.3 (04/16/17740) No LMP for male patient. Physical Exam Constitutional: He is oriented to person, place, and time. Chronically ill male who appears distressed HENT: Head: Atraumatic. Mouth/Throat: Mucous membranes are dry. Eyes: Conjunctivae are normal. Neck: Normal range of motion. No JVD present. Cardiovascular: Normal rate, regular rhythm and normal heart sounds. Pulmonary/Chest: Effort normal and breath sounds normal. Abdominal: Soft. Bowel sounds are normal. There is no tenderness. Obese abdomen Musculoskeletal: Left hip: He exhibits decreased range of motion, decreased strength and ten derness. Legs: Well healed surgical scars left thigh. Left leg shorter, smaller and slightly externally rotated compared to the right leg. Palpable DP pulse, warm to touch with no significant swelling Neurological: He is alert and oriented to person, place, and time. Skin: Skin is warm and dry. Multiple abrasions on the arms and hands, appear to be in various stages of heal ing, some with mild superficial surrounding erythema Psychiatric: Anxious affect DIAGNOSTICS LAB: Labs this ED Encounter CBC WITH DIFFERENTIAL - Abnormal Result Value WBC 15.8 (*) RBC 4.39 (*) HEMOGLOBIN 12.5 (*) HEMATOCRIT 36.3 (*) PLATELETS 766 (*) MPV 7.6 (*) NEUTROPHILS 76 (*) LYMPHOCYTES 12 (*) NEUTROPHIL ABSOLUTE 12.07 (*) MONOCYTE ABSOLUTE 1.52 (*) IMMATURE GRANULOCYTES ABSOLUTE 0.14 (*) MCV 82.7 MCH 28.5 MCHC 34.4 RDW 13.4 RDW-STDEV 40.6 MONOCYTES 10 EOSINOPHILS 1 BASOPHILS 0 IMMATURE GRANULOCYTES 1 LYMPHOCYTE ABSOLUTE 1.92 EOSINOPHIL ABSOLUTE 0.11 BASOPHILS ABSOLUTE 0.03 PROTIME-INR - Abnormal PROTIME 12.4 (*) INR 1.2 (*) COMPREHENSIVE METABOLIC PANEL - Abnormal SODIUM 123 (*) CHLORIDE 84 (*) CO2 20 (*) GLUCOSE 230 (*) ALKALINE PHOSPHATASE 158 (*) POTASSIUM 4.4 CALCIUM 9.3 BUN 10 CREATININE 0.83 TOTAL PROTEIN 7.6 ALBUMIN 3.7 BILIRUBIN TOTAL 0.4 AST 13 ALT 10 GFR >60 GFR, >60 ANION GAP 19 URINALYSIS WITH REFLEX CULTURE - Abnormal CLARITY UA Cloudy (*) LEUKOCYTE ESTERASE UA 3+ (*) PROTEIN UA Trace (*) WBC UA 51-100 (*) RBC UA 3-5 (*) BACTERIA UA 1+ (*) COLOR UA Yellow SPECIFIC GRAVITY UA 1.003 PH UA 6.0 NITRITE UA Negative GLUCOSE UA Negative KETONES UA Negative UROBILINOGEN UA <2.0 BILIRUBIN UA Negative BLOOD UA Negative EPITHELIAL CELLS, URINE 0-5 COMMENT, URINE Mucous: Few Narrative: Based on results, a urine culture has been reflexed. PHENYTOIN LEVEL, TOTAL - Normal PHENYTOIN TOTAL 16.2 BLOOD CULTURE BLOOD CULTURE URINE CULTURE RADIOLOGY: XR HIP 2 OR 3 VIEWS LT Radiologist Impression Impression: Fracture proximal left femur. This has been surgically fixated recently. Open reduction and internal fixation. No complete or significant osseous union in the fracture site. Mild varus angulation. No additional acute osseous or acute soft tissue findings. Intrepreting radiologist contact #: [phone]. EKG: SR without acute ST-T wave changes PROCEDURES Procedures MEDICAL DECISION MAKING AND PLAN OF CARE MDM No new fracture on xray, records requested from [facility] from recent hip surg len Treated in ED with fentanyl for pain and IVF Labs show hyponatremia and leukocytosis No obvious seizures in the ED. Dilantin level is therapeutic Discussed with Dr Couch. Will admit for IV antibiotics, hydration, and pain co ntrol. Recheck labs in am Levaquin given in ED Due to fall with soft tissue swelling in the hip, will hold lovenox and use SCD for DVT prevention ED Course Medications Administered During the ED Stay from 04/16/2017 0726 to 04/16/2017 1 030 Date/Time Order Dose Route Action 04/16/2017 0743 sodium chloride 0.9 % flush injection 10 mL 10 mL IV Given 04/16/2017 0743 fentaNYL PF (SUBLIMAZE) 50 mcg/mL injection 50 mcg 50 mcg IV G iven 04/16/2017 0816 fentaNYL PF (SUBLIMAZE) 50 mcg/mL injection 100 mcg 100 mcg IV Given 04/16/2017 0817 sodium chloride 0.9% bolus solution 1,000 mL 1,000 mL IV New B ag 04/16/2017 0816 ondansetron (ZOFRAN) 4 mg/2 mL injection 4 mg 4 mg IV Given . New Prescriptions for this Encounter LAST VS BP: 134/62 (04/16/17940), Heart Rate: 100 bpm (04/16/17940), Resp: 20 (04/16), Temp: 98.4 F (36.9 C) (04/16/17740), Temp src: Oral (04/16/17 0 741), SpO2: 95 % (04/16/17740) CLINICAL IMPRESSION Final diagnoses: [M25.552] Left hip pain (Primary) [R29.6] Frequent falls [E87.1] Hyponatremia [G40.909] Seizure disorder [N30.00] Acute cystitis without hematuria DISPOSITION, EDUCATION AND MEDICATION RECONCILIATION Medications reconciled. See after visit summary for patient education on discha rged patients. ATTESTATION STATEMENTS documented in this encounter Miscellaneous Notes * Therapy Evaluation - Odell Casillas, Physical Therapist - 04/19/2017 12:10 PM CDT Swing Bed Physical Therapy Evaluation Evaluation Date: 04/19/2017 Start Time:9:15 Stop Time: 9:30 Total Time: 15 Time in minutes: 31 Admit Date: 04/16/2017 Diagnosis: There are no admission michael gnoses documented for this encounter. Reason for therapy consult: muscle weakness requiring therapeutic strengthening program, difficulties with ambulation requiring gait training, a high risk for o r history of falls needing a safety assessment and decreased range of motion cox iting functional abilities Physician: Claus Couch MD History: Past Medical History Past Medical History: Diagnosis Date Anxiety Asthma Cataract Chronic ischemic heart disease, unspecified Contusion, back 08/16/03 Fall COPD (chronic obstructive pulmonary disease) Coronary artery disease Diabetes Glaucoma Seizure disorder last seizure 2010 Unspecified disease of respiratory system Unspecified disorder of lipoid metabolism Unspecified essential hypertension Wrist sprain 08/10 Rt. Weight Bearing: weight bearing as tolerated on left lower extremity/ies PRECAUTIONS: fall precautions and seizure precautions Equipment:: IV Oxygen 0 Liters/min Telemetry History:Medium Complexity Examination: Medium Complexity Clinical Presentation:Evolving with changing characteristics EVALUATION COMPLEXITY: Medium Complexitybased on patient's self-reporting, the rapist's objective findings and professional determinations. Subjective Information provided by: patient Patient lives alone Home Environment: 1-Story home Comment: Patient reports that he has help in the evening only Prior Level Of Function Bed Mobility Transfers modified independent modified independent Ambulation: Device Distance Level of assist Comments rolling walker Household. Modified [place] level surface only Wheelchair Stairs not applicable Not applicable Prior ADL Function WorkStatus modified independence: is retired Objective Cognition: Person, Place, Date and Situation Current Status: Bed Mobility Transfers moderate assistance:Due to left hip pain with spasm in movement. moderate assist ance:Due to left hip pain with spasm in leg movement. Ambulation: Device Distance Level of assist rolling walker 0 ' Contact Guard / Minimal Assistance Comments:patient declined to ambulate at this time due to "severe" left hip pain . Wheelchair Stairs not tested did not perform: Strength: Right LE Left LE General UE 4- 3- 4 Balance Static Sitting Dynamic Sitting Static Standing Dynamic Standing good fair poor poor Sensation: intact to light touch Goals SEE PLAN OF CARE FOR DOCUMENTATION OF GOALS TO BE COMPLETED DURING HOSPITAL STAY . 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 Patient would benefit from PT for functional transfer training gait training str engthening exercises ROM Recommended DC disposition: Home with home health Physical Therapy Status After Therapy Session lying in bed with call light and phone within reach Therapist's Signature: Odell Casillas Physical Therapist 1 2:14 PM CDT * Care Plan - Pilar Singh RN - 04/19/2017 10:22 AM CDT Patient status changed to swing bed. Patient is working with physical therapy. C omplains of pain frequently when awake. Administered two 10-325 oxycodone/acetam inophen tabs as ordered PRN. Rating pain 9/10 on 0-10 scale. Located in left hip and buttocks. Uses urinal in bed independent. Encouraged to reposition self mirtha quently. History of diabetes. Accuchecks AC/HS BS this AM 216. 2 Units of humalo g sliding scale given as ordered. Will continue to monitor. INTERDIS PW: HYPERGLYCEMIA, ADULT Pathway Day 3 Metabolic: Maintain glucose between 70-180 mg/dL when receiving subcutaneo us insulin and between 110-160 mg/dL when receiving IV insulin. Not Met SERUM GLUCOSE GREATER THAN GOAL INTERDIS PW: URINARY TRACT INFECTION, ADULT-ADMIT TO MED SURG Pathway Day 3 Activity: Patient able to tolerate activity appropriate for discharge loca tion or post acute services arranged Not Met GOAL NOT YET MET BUT PATIENT PROGRESSING TOWARD GOAL Pain, Potential/Actual Verbalizes/displays acceptable comfort level or baseline comfort level Varia nce * Discharge Planning Communication - Rosalinda Singh RN - 04/19/2017 9:17 AM CDT An order for inpatient admission was entered by NEVIN Bronson, on April 16 at 0951. The patient has [employer] M[employer] plan for his primary insurance [employer] and [employer] as the secondary provider. The patient has had a 3 day inpatient stay and qualifies for SWB with IV antibiotics and physical therapy. T his information was validated by Pao Dorado RN, Nursing Blanker Operator and myself . * Care Plan - Viri Tipton RN - 04/19/2017 5:27 AM CDT Pt continues to c/o pain in left hip rated at a 10. Pt has been taking 2 tablets of Percocet every 4 hours and has now reached the maximum limit of Tylenol allo wed. INTERDIS PW: HYPERGLYCEMIA, ADULT Pathway Day 3 Metabolic: Maintain glucose between 70-180 mg/dL when receiving subcutaneo us insulin and between 110-160 mg/dL when receiving IV insulin. Not Met Symptom Management: Patient blood sugars are maintained between 70 mg/dL a nd 180 mg/dL without reporting signs and symptoms of hyperglycemic or hypoglycem ic events. Not Met INTERDIS PW: URINARY TRACT INFECTION, ADULT-ADMIT TO MED SURG Pathway Day 3 Activity: Patient able to tolerate activity appropriate for discharge loca tion or post acute services arranged Not Met BASELINE ACTIVITY REQUIRES AN ASSISTIVE DEVICE Musculoskeletal Achieve optimal musculoskeletal function by discharge or maintain baseline f unction Variance Pain, Potential/Actual Verbalizes/displays acceptable comfort level or baseline comfort level Varia nce * Care Plan - Jeri Garcia RN - 04/18/2017 5:54 PM CDT Pt continues to take pain meds as he needs them. Tomorrow he will have physical therapy. Identify discharge needs upon admission and through discharge Progressing * Care Plan - Jeri Garcia RN - 04/17/2017 6:24 PM CDT Pt has had good day today, up to commode for bowel movement, did stand with walk er and staff x2. Achieve optimal genitourinary and renal function by discharge or maintain baseli ne function Variance * Therapy Evaluation - Odell Casillas Physical Therapist - 04/17/2017 11:16 AM CDT Acute Care Physical Therapy Evaluation Evaluation Date: 04/17/2017 Start Time: 10:45 Stop Time: 11:16 Total Time: 31 Time in minutes: 31 Admit Date: 04/16/2017 Diagnosis: There are no admission diagnoses documented fo r this encounter. Reason for therapy consult: muscle weakness requiring therapeutic strengthening program, difficulties with ambulation requiring gait training, a high risk for o r history of falls needing a safety assessment and decreased range of motion cox iting functional abilities Physician: Claus Couch MD History: Past Medical History: Diagnosis Date Anxiety Asthma Cataract Chronic ischemic heart disease, unspecified Contusion, back 08/16/03 Fall COPD (chronic obstructive pulmonary disease) Coronary artery disease Diabetes Glaucoma Seizure disorder last seizure 2010 Unspecified disease of respiratory system Unspecified disorder of lipoid metabolism Unspecified essential hypertension Wrist sprain 08/10 Rt. Weight Bearing: weight bearing as tolerated on left lower extremity/ies PRECAUTIONS: fall precautions and seizure precautions Equipment:: IV Oxygen 0 Liters/min Telemetry History:Medium Complexity Examination: Medium Complexity Clinical Presentation:Evolving with changing characteristics EVALUATION COMPLEXITY: Medium Complexity based on patient's self-reporting, ther apist's objective findings and professional determinations. Subjective Information provided by: patient Patient lives alone Home Environment: 1-Story home Comment: Patient reports that he has help in the evening only Prior Level Of Function Bed Mobility Transfers modified independent modified independent Ambulation: Device Distance Level of assist Comments rolling walker Household. Modified [place] level surface only Wheelchair Stairs not applicable Not applicable Prior ADL Function WorkStatus modified independence: is retired Objective Cognition: Person, Place, Date and Situation Current Status: Bed Mobility Transfers moderate assistance:Due to left hip pain with spasm in movement. moderate assist ance:Due to left hip pain with spasm in leg movement. Ambulation: Device Distance Level of assist rolling walker 0 ' Contact Guard / Minimal Assistance Comments:patient declined to ambulate at this time due to "severe" left hip pain . Wheelchair Stairs not tested did not perform: Strength: Right LE Left LE General UE 4- 3- 4 Balance Static Sitting Dynamic Sitting Static Standing Dynamic Standing good fair poor poor Sensation: intact to light touch Goals SEE PLAN OF CARE FOR DOCUMENTATION OF GOALS TO BE COMPLETED DURING HOSPITAL STAY . 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 Patient would benefit from PT for functional transfer training gait training str engthening exercises ROM Recommended DC disposition: Home with home health Physical Therapy Status After Therapy Session lying in bed with call light and phone within reach Therapist's Signature: Odell Casillas Physical Therapist 1 1:54 AM CDT * Care Plan - Viri Tipton RN - 04/17/2017 6:47 AM CDT Pt was praying to let him , states he cannot live like this anymore. Pt new[place] nues to have c/o pain in left hip. Pt receiving Fentanyl and [place] for pain. Pt sleeps for several hours after receiving pain med, but awakens and complains of pain again. INTERDIS PW: HYPERGLYCEMIA, ADULT Pathway Day 1 Metabolic: Maintain glucose between 70-180 mg/dL when receiving subcutaneo us insulin and between 110-160 mg/dL when receiving IV insulin. Not Met Genitourinary/Renal Achieve optimal genitourinary and renal function by discharge or maintain ba seline function Variance Musculoskeletal Achieve optimal musculoskeletal function by discharge or maintain baseline f unction Variance Pain, Potential/Actual Verbalizes/displays acceptable comfort level or baseline comfort level Varia nce * Care Plan - Rosalinda Singh RN - 04/16/2017 1:29 PM CDT Problem: Discharge Planning Goal: Identify discharge needs upon admission and through discharge Outcome: Progressing Discharge Planning Meeting Notes Patient Name: Oliverio Tinsley Admit Date: 04/16/2017 Possible DC Date: 04/19/2017 Prior Services: Home Health Care Agency used: [facility] Discharge Location: Home with support of family and friends Discharge Needs Ongoing Services: The patient lives in his home with care givers. While hospita liz, he is receiving IV fluids, IV antibiotics and IV medications for control of pain and nausea to treat acute cystitis. New Services Needed: Probable need from home health care assistance Therapy Needs: Physical therapy Services received from: [facility] Those in attendance: "Rosalinda Singh RN","Essie, [place]","Bob Salmeron MSPT"," Christi Dalton, PRIYA","PRE[facility], Mina Floyd [facility] Marketing, Althea Andrews, Pharmacist, Charles Best documented in this encounter Plan of Treatment Not on filedocumented as of this encounter Procedures Comments Procedure Name Priority Date/Time Associated Diag nosis EKG 12-LEAD Stat 04/20/2017 11:40 AM CDT POC GLUCOSE Routine 04/19/2017 11:25 AM CDT POC GLUCOSE Routine 04/19/2017 7:36 AM CDT POC GLUCOSE Routine 04/18/2017 8:33 PM CDT POC GLUCOSE Routine 04/18/2017 4:18 PM CDT POC GLUCOSE Routine 04/18/2017 11:44 AM CDT POC GLUCOSE Routine 04/18/2017 9:35 AM CDT CBC WITH DIFFERENTIAL Routine 04/18/2017 5:30 AM CDT COMPREHENSIVE METABOLIC Routine 04/18/2017 PANEL 5:30 AM CDT POC GLUCOSE Routine 04/17/2017 9:42 PM CDT POC GLUCOSE Routine 04/17/2017 5:18 PM CDT POC GLUCOSE Routine 04/17/2017 1:06 PM CDT BASIC METABOLIC PANEL Routine 04/17/2017 6:00 AM CDT POC GLUCOSE Routine 04/16/2017 9:32 PM CDT POC GLUCOSE Routine 04/16/2017 5:15 PM CDT POC GLUCOSE Routine 04/16/2017 1:20 PM CDT MRSA PCR RAPID SCREEN Stat 04/16/2017 11:35 AM CDT URINALYSIS WITH REFLEX Stat 04/16/2017 CULTURE 9:55 AM CDT URINE CULTURE Routine 04/16/2017 9:55 AM CDT BLOOD CULTURE Stat 04/16/2017 8:27 AM CDT BLOOD CULTURE Stat 04/16/2017 8:19 AM CDT XR HIP 2 OR 3 VIEWS LT Stat 04/16/2017 8:02 AM CDT PHENYTOIN LEVEL, TOTAL Stat 04/16/2017 7:45 AM CDT CBC WITH DIFFERENTIAL Stat 04/16/2017 7:44 AM CDT PROTIME-INR Stat 04/16/2017 7:44 AM CDT COMPREHENSIVE METABOLIC Stat 04/16/2017 PANEL 7:44 AM CDT documented in this encounter Results * EKG 12-LEAD (04/20/2017 11:40 AM CDT) Narrative Performed At This result has an attachment that is n ot available. Procedure Note David Bernard MD - 04/19/2017 10:10 AM CDT [address] [place], [place] [address] Patient Name: OLIVERIO TINSLEY CSN: [id number] : 1950 Provider: David Bernard M.D. Admitted: 04/16/2017 ELECTROCARDIOGRAM DATE OF SERVICE: 04/16/2017 04/16/2017 at 0832. The rhythm is regular, sinus in origin with a rate of 96 beats per minute. Limb leads show low voltage. UT interval is prolonged. Compared with previous tracing dated November 26 2016, electrical axis has shifted to normal currently. The rate is faster on the current tracing and UT interval is longer currently. DIAGNOSIS: 1) Sinus rhythm, rate 96 beats per minute. 2) 1st degree AV block. 3) Low voltage limb leads. Dictated by: David Bernard M.D./[employer] D: [id number] V: [id number] cc: Claus Couch M.D. * POC GLUCOSE (04/19/2017 11:25 AM CDT) POC GLUCOSE 229 (H) 70 - 100 mg/dL [facility] QUALITY PROCESS LEAD NAME Sharon Granados [facility] Specimen Whole blood sample (specimen) Performing Organization Address City/State/Zipcode Ph one Number [facility] CLIA# [id number] [place], [place] [address] [address] * POC GLUCOSE (04/19/2017 7:36 AM CDT) POC GLUCOSE 216 (H) 70 - 100 mg/dL [facility] [place] QUALITY PROCESS LEAD NAME Pilar Singh [facility] [place] Specimen Whole blood sample (specimen) Performing Organization Address [facility] one [facility] LABORAT[facility] CLIA# [id number] [place] [address] - [facility] [address]AY[address] [place] [address] * POC GLUCOSE (04/18/2017 8:33 PM CDT) POC GLUCOSE 225 (H) 70 - 100 mg/dL [facility] [place] QUALITY PROCESS LEAD NAME Viri Tipton [facility] [place] Specimen Whole blood sample (specimen) Performing Organization Address [facility] LABORAT[facility] CLIA# [id number] [place] [address] * POC GLUCOSE (04/18/2017 4:18 PM CDT) POC GLUCOSE 163 (H) 70 - 100 mg/dL [facility] SERVICES - [place] QUALITY PROCESS LEAD NAME Jeri Garcia Arias [facility] LABORATORY SERVICES - [place] Specimen Whole blood sample (specimen) Performing Organization Address [facility] [employer] [facility] CLIA# [id number] GAB JEFFERSON 667 - [facility] FAY[place] [address] [place] [address] * POC GLUCOSE (04/18/2017 11:44 AM CDT) POC GLUCOSE 204 (H) 70 - 100 mg/dL [facility] LABORATORY SERVICES - [place] QUALITY PROCESS LEAD NAME Radha Jeri Arias [facility] LABORATORY SERVICES - [place] Specimen Whole blood sample (specimen) Performing Organization Address [facility] one [facility] LABORATORY SERVICES CLIA# [id number] GAB JEFFERSON 66 - [place] [address] [place] [address] * POC GLUCOSE (04/18/2017 9:35 AM CDT) POC GLUCOSE 222 (H) 70 - 100 mg/dL [facility] LABORATORY SERVICES - [place] QUALITY PROCESS LEAD NAME Jeri Garcia Arias [facility] LABORATORY SERVICES - [place] Specimen Whole blood sample (specimen) Performing Organization Address City/State/Zipcode Ph one Number [facility] LABORATORY SERVICES CLIA# [id number] GAB JEFFERSON 667 01 - [place] [address] [facility] * COMPREHENSIVE METABOLIC PANEL (04/18/2017 5:30 AM CDT) SODIUM 132 (L) 136 - 145 mmol/L [facility] - [place] POTASSIUM 4.3 3.5 - 5.1 mmol/L [facility] - [place] CHLORIDE 94 (L) 98 - 107 mmol/L [facility] - [place] CO2 23 22 - 29 mmol/L [facility] - [place] CALCIUM 8.9 8.8 - 10.2 mg/dL [facility] - [place] BUN 10 8 - 23 mg/dL [facility] - [place] CREATININE 0.80 0.67 - 1.17 mg/dL [facility] - [place] GLUCOSE 209 (H) 70 - 100 mg/dL [facility] - [place] TOTAL PROTEIN 6.4 (L) 6.6 - 8.7 g/dL [facility] - [place] ALBUMIN 2.8 (L) 3.5 - 5.2 g/dL [facility] - [place] BILIRUBIN TOTAL 0.2 <=1.2 mg/dL [facility] - [place] ALKALINE 120 40 - 129 U/L [facility] PHOSPHATASE LABORATORY SERVICES - [place] AST 13 <=41 U/L [facility] - [place] ALT 9 (L) 10 - 50 U/L [facility] - [place] GFR >60 >=60 mL/min/1.73 sq [facility] Comment: meter LABORATORY eGFR has not been validated SERVICES [facility] for use in the elderly (> [...] result. GFR, >60 >=60 mL/min/1.73 sq [facility] meter LABORATORY SERVICES - [place] ANION GAP 15 4 - 20 mmol/L [facility] LABORATORY SERVICES - [place] Specimen Blood Performing Organization Address City/State/Zipcode Ph one Number [facility] LABORATORY SERVICES CLIA# [id number] GAB JEFFERSON 667 01 - [place] [facility] * CBC WITH DIFFERENTIAL (04/18/2017 5:30 AM CDT) WBC 11.3 (H) 3.6 - 11.1 K/uL [facility] LABORATORY SERVICES - [place] RBC 3.55 (L) 4.49 - 5.52 M/uL [facility] - [place] HEMOGLOBIN 10.3 (L) 13.3 - 16.5 g/dL [facility] LABORATORY SERVICES - [place] HEMATOCRIT 30.5 (L) 40.7 - 48.9 % [facility] LABORATORY SERVICES - [place] MCV 85.9 82.7 - 97.1 fL [facility] LABORATORY SERVICES - [place] MCH 29.0 27.1 - 32.3 pg [facility] LABORATORY SERVICES - [place] MCHC 33.8 31.3 - 34.9 g/dL [facility] LABORATORY SERVICES - [place] RDW 13.6 11.5 - 14.7 % [facility] LABORATORY SERVICES - [place] RDW-STDEV 43.1 37.2 - 47.6 fL [facility] LABORATORY SERVICES - [place] PLATELETS 574 (H) 136 - 352 K/uL [facility] LABORATORY SERVICES - [place] MPV 7.7 (L) 8.6 - 11.8 fL [facility] LABORATORY SERVICES - [place] NEUTROPHILS [...] [place] IMMATURE 1 0 - 1 % [facility] GRANULOCYTES LABORATORY SERVICES - [place] NEUTROPHIL 8.49 (H) 1.54 - 7.18 K/uL [facility]UTE LABORATORY SERVICES - [place] LYMPHOCYTE 1.41 0.69 - 3.61 K/uL [facility]AT[facility] SERVICES - [place] MONOCYTE 1.23 (H) 0.19 - 0.95 K/uL [facility] SERVICES - [place] EOSINOPHIL 0.07 0.00 - 0.44 K/uL [facility] SERVICES - [place] BASOPHILS 0.02 0.00 - 0.10 K/uL [facility] ABSOLUTE LABORATORY SERVICES - [place] IMMATURE 0.09 0.00 - 0.09 K/uL [facility] GRANULOCYTES LABORATORY ABSOLUTE SERVICES - [place] Specimen Blood Performing Organization Address [facility] one [facility] LABORATORY SERVICES CLIA# [id number] GAB JEFFERSON [phone] - [place] [address] [place] [address] * POC GLUCOSE (04/17/2017 9:42 PM CDT) POC GLUCOSE 206 (H) 70 - 100 mg/dL [facility] LABORATORY SERVICES - [place] QUALITY PROCESS LEAD NAME Ginny Ashton [facility] LABORATORY SERVICES - [place] Specimen Whole blood sample (specimen) Performing Organization Address [facility] LABORATORY [facility] CLIA# [id number] GAB JEFFERSON - [place] [address] [place] [address] * POC GLUCOSE (04/17/2017 5:18 PM CDT) POC GLUCOSE 181 (H) 70 - 100 mg/dL [facility] LABORATORY SERVICES - [place] QUALITY PROCESS LEAD NAME Jeri Garcia [facility] LABORATORY SERVICES - [place] Specimen Whole blood sample (specimen) Performing Organization Address [facility] LABORATORY [facility] CLIA# [id number] GAB JEFFERSON [phone] - [place] [address] [place] [address] * POC GLUCOSE (04/17/2017 1:06 PM CDT) POC GLUCOSE 277 (H) 70 - 100 mg/dL [facility] LABORATORY SERVICES - [place] QUALITY PROCESS LEAD NAME Jeri Garcia [facility] LABORATORY SERVICES - [place] Specimen Whole blood sample (specimen) Performing Organization Address [facility] one [facility] LABORATORY SERVICES CLIA# [id number] GAB JEFFERSON [facility] [phone] - [place] [address] [place] [address] * BASIC METABOLIC PANEL (04/17/2017 6:00 AM CDT) SODIUM 128 (L) 136 - 145 mmol/L [facility] LABORATORY SERVICES - [place] POTASSIUM 4.3 3.5 - 5.1 mmol/L [facility] LABORATORY SERVICES - [place] CHLORIDE 91 (L) 98 - 107 mmol/L [facility] LABORATORY SERVICES - [facility] F[facility] CO2 22 22 - 29 mmol/L [facility] LABORATORY SERVICES - [facility] [place] CALCIUM 8.9 8.8 - 10.2 mg/dL [facility] LABORATORY SERVICES - [facility] F[facility] BUN 7 (L) 8 - 23 mg/dL [facility] LABORATORY SERVICES - [facility] CREATININE 0.76 0.67 - 1.17 mg/dL [facility] LABORATORY SERVICES - [facility] GLUCOSE 195 (H) 70 - 100 mg/dL [facility] LABORATORY SERVICES - [facility] GFR >60 >=60 mL/min/1.73 sq [facility] Comment: meter LABORATORY eGFR has not been validated [facility] for use in the elderly (> 70 [...] result. GFR, >60 >=60 mL/min/1.73 sq [facility] meter LABORATORY SERVICES - [facility] FAY[place] ANION GAP 15 4 - 20 mmol/L [facility] LABORATORY SERVICES - [facility] Specimen Blood Performing Organization Address [facility] CLIA# [id number] [place] [address] * POC GLUCOSE (04/16/2017 9:32 PM CDT) POC GLUCOSE 180 (H) 70 - 100 mg/dL [facility] LABORATORY [facility] FAY[place] QUALITY PROCESS LEAD NAME Viri Tipton [facility] LABORATORY [facility] - [facility] Specimen Whole blood sample (specimen) Performing Organization Address [facility] one [facility] LABORATORY [facility] CLIA# [id number] [place] [address] * POC GLUCOSE (04/16/2017 5:15 PM CDT) POC GLUCOSE 162 (H) 70 - 100 mg/dL [facility] LABORATORY [facility] - [place] QUALITY PROCESS LEAD NAME Jeri Garcia [facility] SERVICES - [place] Specimen Whole blood sample (specimen) Performing Organization Address [facility] CLIA[facility] [id number] GAB JEFFERSON [address] * POC GLUCOSE (04/16/2017 1:20 PM CDT) [facility] POC GLUCOSE 207 (H) 70 - 100 mg/dL [facility] - [place] QUALITY PROCESS LEAD NAME Jeri Garcia [facility] SERVICES - [place] Specimen Whole blood sample (specimen) Performing Organization Address [facility] one [place] [facility] CLIA# [id number] GAB JEFFERSON [address] * MRSA PCR RAPID SCREEN (04/16/2017 11:35 AM CDT) [facility] MRSA PCR RESULT MRSA not detected MRSA not detected [facility] - [place] Specimen Lab findings surveillance (regime/therapy) - Nares Narrative Performed At This assay is used to detect Methicilli n-Resistant S. aureus (MRSA) colonization [facility] LABORATORY of the nares. PLEASE NOTE: This test has not been a pproved to monitor [facility] effectiveness of MRSA decolonization. Residual DNA ma y temporarily be present [place]AY[facility] after successful decolonization. This t est was performed using an FDA approved screening methodology. Performing Organization Address [facility] one [facility] SERVICES CLIA# [id number] GAB JEFFERSON [facility] [phone] * URINE CULTURE (04/16/2017 9:55 AM CDT) Specimen Urine - Urine, straight in/out catheter Narrative Performed At [facility] LABORATORY See scanned report, performed by Zhanna Kaur. DEVANG ROMERO - [place] Performing Organization Address [facility] CLIA# [id number] GAB JEFFERSON [address] 01 - [address] * URINALYSIS WITH REFLEX CULTURE (04/16/2017 9:55 AM CDT) Pathologist [facility] COLOR UA Yellow Pale to dark yellow [facility] LABORATORY SERVICES - [facility] FAY[place] CLARITY UA Cloudy (A) Clear [facility] LABORATORY SERVICES - [facility] F[place] SPECIFIC 1.003 1.003 - 1.035 [facility] GRAVITY UA LABORATORY SERVICES - [facility] PH UA 6.0 5.0 - 8.0 [facility] LABORATORY SERVICES - [facility] LEUKOCYTE 3+ (A) Negative [facility] ESTERASE UA LABORATORY SERVICES - [facility] NITRITE UA Negative Negative [facility] LABORATORY SERVICES - [facility] PROTEIN UA Trace (A) Negative [facility] Comment: LABORATORY For patients with [facility] 'trace' results, vane FAYE ordering a culture and sensitivity if clinically indicated. GLUCOSE UA Negative Negative [facility] LABORATORY SERVICES - [facility] KETONES UA Negative Negative [facility] LABORATORY SERVICES - [facility] UROBILINOGEN UA <2.0 <2.0 mg/dL [facility] LABORATORY SERVICES - [facility] BILIRUBIN UA Negative Negative [facility] LABORATORY SERVICES - [facility] BLOOD UA Negative Negative [facility] LABORATORY SERVICES - [facility] WBC UA 51-100 (A) 0 - 2 /hpf [facility] LABORATORY SERVICES - [facility] RBC UA 3-5 (A) 0 - 2 /hpf [facility] LABORATORY SERVICES - [facility] BACTERIA UA 1+ (A) Negative /hpf [facility] LABORATORY SERVICES - [facility] EPITHELIAL 0-5 0 - 5 /hpf [facility] CELLS, URINE LABORATORY SERVICES - [facility] COMMENT, URINE Mucous: Few [facility] LABORATORY [facility] - [facility] Specimen Urine - Urine, straight in/out catheter Narrative Performed At Based on results, a urine culture has been reflexed. [facility] LABORATORY [facility] - [place] Performing Organization Address [facility] Ph one Number [facility] LABORATORY SERVICES CLIA# [id number] [place] [address] - [address] * BLOOD CULTURE (04/16/2017 8:27 AM CDT) Specimen Blood - Arm, left Narrative Performed At [facility] LABORATORY See scanned report, performed by Zhanna Kaur. DEVANG ROMERO - [place] Performing Organization Address City/[facility]/Zipcode Ph one Number [facility] [employer] [facility] CLIA# [id number] [place] [address] - [address] * BLOOD CULTURE (04/16/2017 8:19 AM CDT) Specimen Blood - Peripheral Narrative Performed At [facility] See scanned report, performed by Zhanna Kaur. DEVANG Byrd [place] Performing Organization Address City/State/Zipcode Ph one Number [facility] LABORATORY SERVICES CLIA# [id number] GAB JEFFERSON 667 01 - [place] [address] [facility] * XR HIP 2 OR 3 VIEWS LT (04/16/2017 8:02 AM CDT) Specimen Impressions Performed At Impression: Fracture proximal left femur. This has be en surgically INTERFACE SYSTEM fixated recently. Open reduction and in ternal fixation. No complete or significant osseous union in the fractu re site. Mild varus angulation. No additional acute osseous or acute so ft tissue findings. Intrepreting radiologist contact #: [phone]. Narrative Performed At 2 /3 VIEWS LEFT HIP INTERFACE SYSTEM History: 66 years Male wit h fall, trauma, pain, recent surgery via [facility]. Findings: Penile prosthesis. Intramedul norm tanvir left femur. Angled interlocking medullary lag screw proxim ally. Open reduction internal fixation comminuted left proximal femor al fracture with mild varus angulation, involving the lesser trocha nter, extending to the superior greater trochanteric region and located above the level of the greater trochanter obliquely. Overlying soft ti ssue swelling. Distal interlocking intramedullary tanvir femoral screw. Soft tissue postop changes right thigh. No complete or sig nificant osseous union proximal femoral fracture. No additional acute o sseous or acute soft tissue findings. Surgical clips right hemipelv is soft tissues. Bowel gas over the sacrum. Comparison 10/11/2012, intervening posto p changes proximal left femur, otherwise no change. Procedure Note Interface, [facility] [place] [place] [facility] Incoming Radiology Results - 04/16/2017 8:56 AM CDT 2 /3 VIEWS LEFT HIP History: 66 years Male with fall, trauma, pain, recent surgery via [facility]. Findings: Penile prosthesis. Intramedullary tanvir left femur. Angled interlocking medullary lag screw proximally. Open reduction internal fixation comminuted left proximal femoral fracture with mild varus angulation, involving the lesser trochanter, extending to the superior greater trochanteric region and located above the level of the greater trochanter obliquely. Overlying soft tissue swelling. Distal interlocking intramedullary tanvir femoral screw. Soft tissue postop changes right thigh. No complete or significant osseous union proximal femoral fracture. No additional acute osseous or acute soft tissue findings. Surgical clips right hemipelvis soft tissues. Bowel gas over the sacrum. Comparison 10/11/2012, intervening postop changes proximal left femur, otherwise no change. IMPRESSION Impression: Fracture proximal left femur. This has been surgically fixated recently. Open reduction and internal fixation. No complete or significant osseous union in the fracture site. Mild varus angulation. No additional acute osseous or acute soft tissue findings. Intrepreting radiologist contact #: [phone]. Performing Organization Address City/[facility] one Number INTERFACE SYSTEM INTERFACE SYSTEM Refer to clinic/hospital department * PHENYTOIN LEVEL, TOTAL (04/16/2017 7:45 AM CDT) Pathologist [facility] PHENYTOIN TOTAL 16.2 10.0 - 20.0 ug/mL [facility] LABORATORY SERVICES - [place] Specimen Blood Performing Organization Address City/[facility] one Number [facility] LABORATORY SERVICES CLIA# [id number] [place] [address] - [place] [address] [place] [address] * COMPREHENSIVE METABOLIC PANEL (04/16/2017 7:44 AM CDT) Pathologist [facility] SODIUM 123 (L) 136 - 145 mmol/L [facility] LABORATORY SERVICES - [place] POTASSIUM 4.4 3.5 - 5.1 mmol/L [facility] LABORATORY SERVICES - [place] CHLORIDE 84 (L) 98 - 107 mmol/L [facility] LABORATORY SERVICES - [place] CO2 20 (L) 22 - 29 mmol/L [facility] - [facility] CALCIUM 9.3 8.8 - 10.2 mg/dL [facility] LABORATORY SERVICES - [facility] BUN 10 8 - 23 mg/dL [facility] LABORATORY SERVICES - [facility] CREATININE 0.83 0.67 - 1.17 mg/dL [facility] LABORATORY SERVICES - [facility] FAY[facility] GLUCOSE 230 (H) 70 - 100 mg/dL [facility] - [facility] TOTAL PROTEIN 7.6 6.6 - 8.7 g/dL [facility] LABORATORY SERVICES - [facility] ALBUMIN 3.7 3.5 - 5.2 g/dL [facility] - [facility] BILIRUBIN TOTAL 0.4 <=1.2 mg/dL [facility] SERVICES - [facility] ALKALINE 158 (H) 40 - 129 U/L [facility] PHOSPHATASE LABORATORY SERVICES - [place] AST 13 <=41 U/L [facility] LABORATORY SERVICES - [facility] ALT 10 10 - 50 U/L [facility] LABORATORY SERVICES - [facility] GFR >60 >=60 mL/min/1.73 sq [facility] Comment: meter LABORATORY eGFR has not been validated [facility] for use in the elderly (> 70 [...] result. GFR, >60 >=60 mL/min/1.73 sq [facility] meter LABORATORY SERVICES - [place] ANION GAP 19 4 - 20 mmol/L [facility] LABORATORY SERVICES - [facility] Specimen Blood Performing Organization Address City/State/[facility] Ph one Number [facility] LABORATORY SERVICES CLIA# [id number] [place] [address] - [place] [address] [facility] * PROTIME-INR (04/16/2017 7:44 AM CDT) PROTIME 12.4 (H) 9.6 - 11.0 Seconds [facility] LABORATORY SERVICES - [place] INR 1.2 (L) 2.0 - 3.0 [facility] LABORATORY SERVICES - [place] Specimen Blood Performing Organization Address City/State/Zipcode Ph one Number [facility] LABORATORY SERVICES CLIA# [id number] [place] [address] - [place] [address] [facility] * CBC WITH DIFFERENTIAL (04/16/2017 7:44 AM CDT) WBC 15.8 (H) 3.6 - 11.1 K/uL [facility] - [place] RBC 4.39 (L) 4.49 - 5.52 M/uL [facility] - [place] HEMOGLOBIN 12.5 (L) 13.3 - 16.5 g/dL [facility] - [place] HEMATOCRIT 36.3 (L) 40.7 - 48.9 % [facility] LAB[facility]ATORY SERVICES - [place] MCV 82.7 82.7 - 97.1 fL [facility] - [place] MCH 28.5 27.1 - 32.3 pg [facility] - [place] MCHC 34.4 31.3 - 34.9 g/dL [facility] LABORATORY SERVICES - [place] RDW 13.4 11.5 - 14.7 % [facility] - [place] RDW-STDEV 40.6 37.2 - 47.6 fL [facility] LABORATORY SERVICES - [place] PLATELETS 766 (H) 136 - 352 K/uL [facility] - [place] MPV 7.6 (L) 8.6 - 11.8 fL [facility] LABORATORY SERVICES - [place] NEUTROPHILS 76 (H) 44 - 74 % [facility] - [place] LYMPHOCYTES 12 (L) 16 - 44 % [facility] - [place] MONOCYTES 10 4 - 11 % [facility] - [place] EOSINOPHILS 1 0 - 6 % [facility] - [place] BASOPHILS 0 0 - 1 % [facility] - [place] IMMATURE 1 0 - 1 % [facility] GRANULOCYTES LABORATORY SERVICES - [place] NEUTROPHIL 12.07 (H) 1.54 - 7.18 K/uL [facility]UTE LABORATORY SERVICES - [place] LYMPHOCYTE 1.92 0.69 - 3.61 K/uL [facility] SERVICES - [place] MONOCYTE 1.52 (H) 0.19 - 0.95 K/uL [facility] SERVICES - [place] EOSINOPHIL 0.11 0.00 - 0.44 K/uL [facility] SERVICES - [place] BASOPHILS 0.03 0.00 - 0.10 K/uL [facility] ABSOLUTE LABORATORY SERVICES - [place] IMMATURE 0.14 (H) 0.00 - 0.09 K/uL [facility] GRANULOCYTES LABORATORY ABSOLUTE SERVICES - [place] Specimen Blood Performing Organization Address City/State[facility] Ph one Number [facility] LABORATORY SERVICES CLIA# [id number] GAB JEFFERSON [address] - [place] [address] [facility] documented in this encounter Visit Diagnoses Diagnosis Acute cystitis without hematuria - Prim rolando Acute cystitis Left hip pain Pain in joint, pelvic region and thigh Frequent falls Personal history of fall Hyponatremia Hyposmolality and/or hyponatremia Seizure disorder Unspecified epilepsy without mention of intractable epilepsy Oral thrush Candidiasis of mouth documented in this encounter Administered Medications Action Date Dose Rate Site Medication Order MAR Action 04/19/2017 9:48 AM CDT 81 mg aspirin (ECOTRIN EC) tablet 81 mg Given 81 mg, Oral, DAILY, First dose on Wed04/16/17 at 1230, Until Discontinued, Routine, Previous Med: ASPIRIN EC 81 mg Oral TbEC - Orig Sig - Take 81 mg by mouth daily. , 81 mg Given 04/18/2017 9:26 AM CDT 81 mg Given 04/17/2017 9:15 AM CDT 04/19/2017 11:27 AM CDT 25 mg bethanechol (URECHOLINE) tablet 25 mg Given 25 mg, Oral, FOUR TIMES DAILY BEFORE MEALS AND AT BEDTIME, First dose on Wed04/16/17 at 1230, Until Discontinued, Routine, Previous Med: bethanechol (URECHOLINE) 25 mg tablet - Orig Sig - TAKE ONE TABLET BY MOUTH FOUR TIMES A DAY , 25 mg Given 04/19/2017 7:37 AM CDT 25 mg Given 04/18/2017 8:36 PM CDT 04/19/2017 8:24 AM CDT 0.5 mg budesonide (PULMICORT RESPULE) 0.5 mg/2 Given mL inhalation solution 0.5 mg 0.5 mg, Inhalation, TWICE DAILY RESPIRATORY, First dose on Wed04/16/17 a t 1245, Until Discontinued, Routine 0.5 mg Given 04/18/2017 4:34 PM CDT 0.5 mg Given 04/18/2017 6:36 AM CDT 04/18/2017 11:57 AM CDT 10 mg cetirizine (ZyrTEC) tablet 10 mg Given 10 mg, Oral, ONE TIME ONLY, 1 dose, 04/18/17 at 1145, Routine 04/19/2017 9:48 AM CDT 75 mg clopidogrel (PLAVIX) tablet 75 mg Given 75 mg, Oral, DAILY, First dose on Wed04/16/17 at 1230, Until Discontinued, Routine, Previous Med: clopidogrel (PLAVIX) 75 mg Tablet - Orig Sig - Take 1 Tab by mouth daily. , 75 mg Given 04/18/2017 9:25 AM CDT 75 mg Given 04/17/2017 9:15 AM CDT 04/19/2017 11:27 AM CDT 40 mg Abdomina l Tissue enoxaparin (LOVENOX) injection 40 mg Given 40 mg, subCUT, EVERY 24 HOURS, First dose on Wed04/17/17 at 1200, Until Discontinued, Routine 40 mg Abdomen, Right Lower Quadrant Given 04/18/2017 11:48 AM CDT 40 mg Abdomen, Right Lower Quadrant Given 04/17/2017 12:57 PM CDT 04/18/2017 8:36 PM CDT 10 mg ezetimibe (ZETIA) tablet 10 mg Given 10 mg, Oral, DAILY, First dose on Wed04/16/17 at 2100, Until Discontinued, Routine, Previous Med: ezetimibe (ZETIA ) 10 mg tablet - Orig Sig - Take 1 Tab by mouth daily at bedtime. , 10 mg Given 04/17/2017 9:33 PM CDT 10 mg Given 04/16/2017 9:25 PM CDT 04/18/2017 5:15 PM CDT 145 mg fenofibrate nanocrystallized (TRICOR) Given tablet 145 mg 145 mg, Oral, DAILY, First dose on Wed04/16/17 at 1800, Until Discontinued, Routine, Previous Med: fenofibrate nanocrystallized (TRICOR) 145 mg tablet - Orig Sig - Take 1 Tab by mouth daily with supper. , 145 mg Given 04/17/2017 5:27 PM CDT 145 mg Given 04/16/2017 5:24 PM CDT 04/16/2017 8:16 AM CDT 100 mcg fentaNYL PF (SUBLIMAZE) 50 mcg/mL Given injection 100 mcg 100 mcg, IV, ONE TIME ONLY, 1 dose, 04/16/17 at 0815, Routine 04/16/2017 7:43 AM CDT 50 mcg fentaNYL PF (SUBLIMAZE) 50 mcg/mL Given injection 50 mcg 50 mcg, IV, ONE TIME ONLY, 1 dose, Wed04/16/17 at 0745, Routine 04/17/2017 8:24 AM CDT 50 mcg fentaNYL PF (SUBLIMAZE) 50 mcg/mL Given injection 50 mcg 50 mcg, IV, EVERY 4 HOURS PRN, Starting Wed04/16/17 at 1229, Until 04/17/17 a t 1128, Pain (See admin instructions), Routine 50 mcg Given 04/17/2017 3:59 AM CDT 50 mcg Given 04/17/2017 12:12 AM CDT 04/18/2017 8:08 AM CDT 50 mcg fentaNYL PF (SUBLIMAZE) 50 mcg/mL Given injection 50 mcg 50 mcg, IV, EVERY 6 HOURS PRN, Starting 04/17/17 at 1130, Until 04/19/17 at 1324, Pain (See admin instructions), Routine 04/19/2017 9:47 AM CDT 40 mg FLUoxetine (PROzac) capsule 40 mg Given 40 mg, Oral, DAILY, First dose on Wed04/16/17 at 1230, Until Discontinued, Routine, Previous Med: FLUoxetine (PROzac) 20 mg capsule - Orig Sig - PASHA E 2 CAPSULES BY MOUTH EVERY DAY. , 40 mg Given 04/18/2017 9:24 AM CDT 40 mg Given 04/17/2017 9:17 AM CDT 04/18/2017 8:36 PM CDT 100 mg gabapentin (NEURONTIN) capsule 100 mg Given 100 mg, Oral, DAILY AT BEDTIME, First dose on Wed04/16/17 at 2100, Until Discontinued, Routine, Previous Med: gabapentin (NEURONTIN) 100 mg capsule - Orig Sig - Take 1 Capsule (100 mg) by mouth daily at bedtime. , 100 mg Given 04/17/2017 9:32 PM CDT 100 mg Given 04/16/2017 9:23 PM CDT 04/19/2017 11:27 AM CDT 400 mg ibuprofen (MOTRIN) tablet 400 mg Given 400 mg, Oral, DAILY, First dose on Wed04/16/17 at 1230, Until Discontinued, Routine, Previous Med: ibuprofen (MOTRIN) 200 mg tablet - Orig Sig - Pasha e 400 mg by mouth daily. , 400 mg Given 04/18/2017 11:47 AM CDT 400 mg Given 04/17/2017 12:56 PM CDT 04/19/2017 11:27 AM CDT 3 Units Arm, Rig ht Upper insulin lispro (HumaLOG) 100 units/mL Given variable dose injection subCUT, THREE TIMES DAILY WITH MEALS, First dose on Wed04/16/17 at 1230, Until Discontinued, Routine 2 Units Arm, Left Upper Given 04/19/2017 7:37 AM CDT 1 Units Arm, Left Upper Given 04/18/2017 4:20 PM CDT 04/18/2017 8:34 PM CDT 2 Units Arm, Lef t Upper insulin lispro (HumaLOG) 100 units/mL Given variable dose injection subCUT, DAILY AT BEDTIME, First dose on Wed04/16/17 at 2100, Until Discontinued, Routine 1 Units Arm, Left Given 04/17/2017 9:43 PM CDT 1 Units Arm, Left Upper Given 04/16/2017 9:33 PM CDT 04/19/2017 9:49 AM CDT 60 mg isosorbide mononitrate (IMDUR) SR 24 Given hour tablet 60 mg 60 mg, Oral, TWO TIMES DAILY, First dos e on Wed04/16/17 at 1230, Until Discontinued, Routine, Previous Med: isosorbide mononitrate (IMDUR) 60 mg Extended Release 24 hour tablet - Orig Sig - TAKE ONE TABLET BY MOUTH 2 TIMES A DAY , 60 mg Given 04/18/2017 8:41 PM CDT 60 mg Given 04/18/2017 9:26 AM CDT 04/19/2017 9:51 AM CDT 500 mg 100 mL/hr levoFLOXacin (LEVAQUIN) 500 mg/100 mL in New Bag D5W IVPB 500 mg 500 mg, IV, EVERY 24 HOURS, First dose on Wed04/16/17 at 1000, Until Discontinued, Routine, Antibiotic Indication: Urinary Tract Infection(UTI ) / Infection 500 mg 100 mL/hr New Bag 04/18/2017 9:39 AM CDT 500 mg 100 mL/hr New Bag 04/17/2017 9:17 AM CDT 04/17/2017 9:15 AM CDT 10 mg loratadine (CLARITIN) tablet 10 mg Given 10 mg, Oral, DAILY, First dose on Wed04/16/17 at 1230, Until Discontinued, Routine, Previous Med: loratadine (CLARITIN) 10 mg tablet - Orig Sig - Take 1 Tab by mouth daily. , 10 mg Given 04/16/2017 1:26 PM CDT 04/19/2017 9:48 AM CDT 1 mg LORazepam (ATIVAN) tablet 1 mg Given 1 mg, Oral, TWO TIMES DAILY, First dose on Wed04/16/17 at 1230, Until Discontinued, Routine, Previous Med: LORazepam (ATIVAN) 1 mg tablet - Orig Sig - TAKE ONE TABLET BY MOUTH 2 TIMES A DAY.. , 1 mg Given 04/18/2017 8:37 PM CDT 1 mg Given 04/18/2017 9:26 AM CDT 04/19/2017 9:47 AM CDT 400 mg magnesium oxide (MAG-OX) tablet 400 mg Given 400 mg, Oral, THREE TIMES DAILY, First dose on Wed04/16/17 at 1500, Until Discontinued, Routine, Previous Med: magnesium oxide 250 mg Oral Tab - Orig Sig - Take 1 Tab by mouth 3 times daily . , 400 mg Given 04/18/2017 8:36 PM CDT 400 mg Given 04/18/2017 4:22 PM CDT 04/19/2017 12:07 PM CDT 500,000 Units nystatin (MYCOSTATIN) 100,000 unit/mL Given suspension 500,000 Units 500,000 Units, Oral, FOUR TIMES DAILY, First dose on Wed04/17/17 at 1300, Unti l Discontinued, Routine, Antibiotic Indication: Other: Enter in Comments, Antibiotic Indication: thrush 500,000 Units Given 04/19/2017 9:49 AM CDT 500,000 Units Given 04/18/2017 8:37 PM CDT 04/18/2017 8:36 PM CDT 2.5 mg OLANZapine (ZyPREXA) tablet 2.5 mg Given 2.5 mg, Oral, DAILY AT BEDTIME, First dose on Wed04/16/17 at 2100, Until Discontinued, Routine, Previous Med: OLANZapine (ZyPREXA) 2.5 mg tablet - Orig Sig - Take 1 Tab by mouth daily at bedtime. , 2.5 mg Given 04/17/2017 9:34 PM CDT 2.5 mg Given 04/16/2017 9:22 PM CDT 04/16/2017 8:16 AM CDT 4 mg ondansetron (ZOFRAN) 4 mg/2 mL injection Given 4 mg 4 mg, IV, ONE TIME ONLY, 1 dose, 04/16/17 at 0815, Routine 04/17/2017 9:35 PM CDT 4 mg ondansetron (ZOFRAN) 4 mg/2 mL injection Given 4 mg 4 mg, IV, EVERY 6 HOURS PRN, Starting Wed04/16/17 at 1229, Until Wed04/19/17 a t 1324, Nausea/Emesis, Routine 04/17/2017 3:24 AM CDT 1 Tablet oxyCODONE-acetaminophen (PERCOCET) Given 10-325 mg per tablet 1 Tablet 1 Tablet, Oral, EVERY 6 HOURS PRN, Starting Wed04/16/17 at 1229, Until Wed04/19/17 at 1324, Pain (See admin instructions), Routine 1 Tablet Given 04/16/2017 9:25 PM CDT 1 Tablet Given 04/16/2017 12:59 PM CDT 04/19/2017 4:57 AM CDT 1 Tablet oxyCODONE-acetaminophen (PERCOCET) Given 10-325 mg per tablet 1 Tablet 1 Tablet, Oral, EVERY 6 HOURS PRN, Starting 04/17/17 at 1132, Until Wed04/19/17 at 1324, Pain, Moderate, Pain, Severe, Routine, Previous Med: oxyCODONE-acetaminophen (PERCOCET) 10-325 mg Tablet - Orig Sig - Take 1 Tablet by mouth every 6 hours as needed for Pain, Severe. Max Daily Amount: 4 Tablets , 1 Tablet Given 04/18/2017 6:20 AM CDT 1 Tablet Given 04/17/2017 11:16 PM CDT 04/19/2017 9:46 AM CDT 2 Tablets oxyCODONE-acetaminophen (PERCOCET) Given 10-325 mg per tablet 2 Tablet 2 Tablet, Oral, EVERY 4 HOURS PRN, Starting 04/17/17 at 1133, Until Wed04/19/17 at 1324, Pain (See admin instructions), Pain, Severe, Routine 2 Tablets Given 04/19/2017 1:01 AM CDT 2 Tablets Given 04/18/2017 9:14 PM CDT 04/19/2017 9:47 AM CDT 40 mg pantoprazole (PROTONIX) tablet 40 mg Given 40 mg, Oral, DAILY, First dose on Wed04/16/17 at 1230, Until Discontinued, Routine, Previous Med: esomeprazole Magnesium (NexIUM) 10 mg suspension delayed release - Orig Sig - Take 40 mg by mouth daily. , 40 mg Given 04/18/2017 9:25 AM CDT 40 mg Given 04/17/2017 9:14 AM CDT 04/19/2017 9:50 AM CDT 200 mg phenytoin sodium (DILANTIN) extended Given release capsule 200 mg 200 mg, Oral, TWO TIMES DAILY, First dose on Wed04/16/17 at 1245, Until Discontinued, Routine, Previous Med: phenytoin sodium (DILANTIN EXTENDED) 10 0 mg extended release capsule - Orig Sig - Take 100 mg by mouth see administration instructions 2 tabs in the a.m. 2 tab i n the p.m.. , 200 mg Given 04/18/2017 8:36 PM CDT 200 mg Given 04/18/2017 9:26 AM CDT 04/19/2017 7:37 AM CDT 30 mg pioglitazone (ACTOS) tablet 30 mg Given 30 mg, Oral, DAILY WITH BREAKFAST, Firs t dose on Wed04/16/17 at 1230, Until Discontinued, Routine, Previous Med: pioglitazone (ACTOS) 30 mg tablet - Otto g Sig - Take 1 Tab by mouth daily. , 30 mg Given 04/18/2017 9:26 AM CDT 30 mg Given 04/17/2017 9:14 AM CDT 04/19/2017 9:50 AM CDT 10 mg ramipril (ALTACE) capsule 10 mg Given 10 mg, Oral, DAILY, First dose on Wed04/16/17 at 1230, Until Discontinued, Routine, Previous Med: ramipril (ALTACE ) 10 mg capsule - Orig Sig - Take 1 Cap b y mouth daily. , 10 mg Given 04/18/2017 9:24 AM CDT 10 mg Given 04/17/2017 9:15 AM CDT 04/18/2017 8:37 PM CDT 40 mg simvastatin (ZOCOR) tablet 40 mg Given 40 mg, Oral, DAILY AT BEDTIME, First dose on Wed04/16/17 at 2100, Until Discontinued, Routine, Previous Med: simvastatin (ZOCOR) 40 mg tablet - Orig Sig - TAKE ONE TABLET (40MG) BY MOUTH EVERY DAY IN THE EVENING , 40 mg Given 04/17/2017 9:34 PM CDT 40 mg Given 04/16/2017 9:22 PM CDT 04/18/2017 6:11 AM CDT 10 mL sodium chloride 0.9 % flush injection 10 Given mL 10 mL, IV, SEE ADMIN INSTRUCTIONS, Starting Wed04/16/17 at 0733, Until Wed04/19/17 at 1324, Routine 10 mL Given 04/17/2017 8:25 AM CDT 10 mL Given 04/17/2017 8:19 AM CDT 04/16/2017 8:17 AM CDT 1,000 mL 500 mL/hr sodium chloride 0.9% bolus solution New Bag 1,000 mL 1,000 mL, IV, ONE TIME ONLY, 1 dose, Fr i 04/16/17 at 0815, at 500 mL/hr, Administe r over 120 Minutes, Routine 04/18/2017 11:13 PM CDT 30 mL/hr sodium chloride 0.9% infusion Bag Switched IV, at 30 mL/hr, CONTINUOUS, Starting Wed04/16/17 at 1230, Until Wed04/19/17 a t 1324, Routine 30 mL/hr Bag Switched 04/17/2017 1:03 PM CDT 30 mL/hr Rate Change 04/17/2017 11:28 AM CDT 04/18/2017 5:16 PM CDT 0.4 mg tamsulosin (FLOMAX) SR 24 hour capsule Given 0.4 mg 0.4 mg, Oral, DAILY AFTER SUPPER, First dose on Wed04/16/17 at 1800, Until Discontinued, Routine, Previous Med: tamsulosin (FLOMAX) 0.4 mg capsule - Orig Sig - TAKE ONE CAPSULE BY MOUTH EVERY DAY 30 MINUTES AFTER SUPPER , 0.4 mg Given 04/17/2017 5:27 PM CDT 0.4 mg Given 04/16/2017 5:24 PM CDT 04/19/2017 9:57 AM CDT 1 Drop timolol (TIMOPTIC) 0.5 % ophthalmic Given solution 1 Drop 1 Drop, Both Eyes, TWO TIMES DAILY, First dose on Wed04/16/17 at 1230, Until Discontinued, Routine, Previous Med: BETIMOL 0.5 % OP Drop - Orig Sig - Administer 1 Drop in both eyes 2 times daily. , 1 Drop Given 04/18/2017 8:38 PM CDT 1 Drop Given 04/18/2017 9:00 AM CDT 04/18/2017 8:37 PM CDT 50 mg traZODone (DESYREL) tablet 50 mg Given 50 mg, Oral, DAILY AT BEDTIME, First dose on Wed04/16/17 at 2100, Until Discontinued, Routine, Previous Med: traZODone (DESYREL) 50 mg tablet - Orig Sig - Take 1 Tab by mouth daily at bedtime.. , 50 mg Given 04/17/2017 9:32 PM CDT 50 mg Given 04/16/2017 9:22 PM CDT documented in this encounter Additional Health Concerns Assessment Noted Time A Hypertension Plan of Care has been documented for t he patient 02/12/2017 12:54 PM CDT documented as of this encounter
--- OUTSIDE RECORDS SUMMARY | 2020-03-24 14:02 | XMS REPORT | Encounter Summary ---
Author Author [facility] Organization [facility] Address Unknown Phone Unavailable Care Team Providers Care Public Relations Supervisor Name Role Phone Claus Couch MD PCP Reason for Visit * Auth/Cert Referred By Contact Referred To Contact Status Reason Specialty Diagnoses / Procedures [facility] [id number] [place] [address] Home Health Encounter Details Care Team Description Date Type Department Mel Miranda RN SN - OASIS TRANSFER W/OUT DC 04/16/[facility] [address] [place] [address] Social History Date Tobacco Use [...] - OASIS TRANS W/OUT DC Discipline - Usp Status Goals Interventions Problem Descriptio Start Date n Active - 1 problem intervention scheduled/documented in this visit Physical Discomfort Alteration 03/25/2017 Disciplines: in comfort Usp Active - 1 problem intervention scheduled/documented in this visit Pulse Oximetry Skilled 03/25/2017 Disciplines: assessment Usp and monitoring of O2 saturation s. Active - 1 problem intervention scheduled/documented in this visit Skilled Observation and Skilled 03/25/2017 Assessment nursing Disciplines: observatio Usp n and assessment . Variance Visit Notes [...]
--- OUTSIDE RECORDS SUMMARY | 2020-03-24 14:02 | XMS REPORT | Encounter Summary ---
Author Author [facility] Organization [facility] Address Unknown Phone Unavailable Care Team Providers Care Caustic Room Attendant Name Role Phone Claus Couch MD PCP Reason for Visit * Auth/Cert Referred By Contact Referred To Contact Status Reason Specialty Diagnoses / Procedures [facility] [id number] [place] [address] Home Health Encounter Details Care Team Description Date Type Department Aly Colón, Physical Therapist PT - REASSESSMENT 04/08/2017 [facility] [address] [place] [address] Social History Date Tobacco Use [...] Signs Reading Time Taken Comments Vital Sign 125/70 04/08/2017 9:00 AM CDT Blood Pressure 94 04/08/2017 9:00 AM CDT Pulse - - Temperature 18 04/08/2017 9:00 AM CDT Respiratory Rate - - Oxygen [...] Notes Intervention Associated Status Problem/Go al Pt demonstrated HEP Hip flex and LAQ x 30 (I) , ther ex in sitting with t band orange hamstring curls hip abd, 20, sup ex: SLR, hip Abd, bridges, and Hs x 20, standing ext with (L) LE hip flex, abd, hamstring curls. heel raises. Pt V/C for eliane for safety with performance of ex decreaseing at this time but impulsive with tech. PT establish or upgrade Problem: Completed home program PT Description: Establish Home exercise program for or Upgrade weakness in LEs with goal Home of 4/5 left hip strength Program in order to transfer and gait slowly.. Pt received gt training today V/C for gt pattern improvment and safety with amb. Pt has increased distand of 200' wihout rest period decreasing knee wobble at this time (B) as pt fatigues. Pt gt trinaing to increase (I0 withi mobilty and return pt to PLOF Pt gait training Problem: Completed Description: PT Gait Evaluate and instruct Training patient and caregivers in safe gait training on all surfaces including step training as needed in home or to exit home, full weight bearing and using rolling walker. Pt sit to stand trfs x 3 all planes at this time Pt SBA-mod (I) with sit to standing all surfaces. Pt is impulsive at times and requres V/C to slow making him a continued fall risk but has improved since thie therapists 1st visit PT transfer training Problem: Completed Description: PT Evaluate and instruct Transfer patient/caregiver in safe Training transfer training using appropriate body mechanics, full weight bearing, and necessary equipment. documented in this encounter Home Health Visit - Actions and Narratives Pt received ther ex HEP with upgrades w ith AROM and PRE in sitting sup and standing (B) LE;s UE SL (L) at this time. Pt trfs sit too holli ding at this time mod (I0 to sup due to impulsive behavior. Pt amb with FWW 200' no LOB improving a ctivity vani decreased knee wobble and decrease SOB with activity. Pt reassessment today and is improving in strength (B) LE's, bal gt and trfs at this time. Pt to continiue progression with therapy. documented in this encounter
--- OUTSIDE RECORDS SUMMARY | 2020-03-24 14:02 | XMS REPORT | Encounter Summary ---
Author Author [facility] Organization [facility] Address Unknown Phone Unavailable Care Team Providers Care [employer] Supervisor Name Role Phone Claus Couch MD PCP Reason for Visit * Auth/Cert Referred By Contact Referred To Contact Status Reason Specialty Diagnoses / Procedures [facility] [id number] [place] [address] Home Health Encounter Details Care Team Description Date Type Department Aly Colón, Physical Therapist PT - HOME VISIT 04/09/2017 [facility] [address] [place] [address] Social History Date Tobacco Use [...] Signs Reading Time Taken Comments Vital Sign 140/82 04/09/2017 8:34 AM CDT Blood Pressure 76 04/09/2017 8:34 AM CDT Pulse - - Temperature 20 04/09/2017 8:34 AM CDT Respiratory Rate - - Oxygen [...] Notes Intervention Associated Status Problem/Go al Pt rec. ther ex in sup and sittinng this Rx secondary to increased pain in (B) knees. Pt ex performed: Hs, SLR's, hip Abd/dd, LAQ's, hamstring curls. x 30 reps (B) LE's decreased actviity secondary to (R) knee pain PT establish or upgrade Problem: Completed home program PT Description: Establish Home exercise program for or Upgrade weakness in LEs with goal Home of 4/5 left hip strength Program in order to transfer and gait slowly.. Gt with FWW x 2 bouts 150' each no rest. SBA no LOB unsteady at time with (L) knee wobble Improving activity to and stride with amish at this time. Pt gait training Problem: Completed Description: PT Gait Evaluate and instruct Training patient and caregivers in safe gait training on all surfaces including step training as needed in home or to exit home, full weight bearing and using rolling walker. sit to standing trfs mod (I) pain in (R) knee today limiting mobility and actviity. Pt continues to demonstrate mod (I0 with all trfs in home. Pt to attempt santiago next Rx to continue progression to (I) with mobility and decreased caregiver support. PT transfer training Problem: Completed Description: PT Evaluate and instruct Transfer patient/caregiver in safe Training transfer training using appropriate body mechanics, full weight bearing, and necessary equipment. documented in this encounter Home Health Visit - Actions and Narratives Pt recieved ther ex x 30 reps with decr eases in standinig ex today due to (R) knee pain. Pt sit to standing mod (I) all surface increased (R) knee pain today. Gt with FWW SBA 150' x 2 bouts no LOB unsteady at times with (L) knee wobble, but improvimg stride and amish at this time. Pt to increase trfs with ramp next visi t. Pt has increased (R) knee pain at this time possibly from increase activity and PRE's. Pt decrea sed ex with no PRE and standing ex today to decrease LE pain. documented in this encounter
--- OUTSIDE RECORDS SUMMARY | 2020-03-24 14:02 | XMS REPORT | Encounter Summary ---
Author Author [facility] Organization [facility] Address Unknown Phone Unavailable Care Team Providers Care [employer] Name Role Phone Claus Couch MD PCP Reason for Visit * Reason Comments Medication Refill Encounter Details Care Team Description Date Type Department Claus Couch MD [address] [place] [address] 04/09/2017 Refill [facility] [place] [address] [place] [address] Social History Date Tobacco Use [...]
--- OUTSIDE RECORDS SUMMARY | 2020-03-24 14:02 | XMS REPORT | Encounter Summary ---
Author Author [facility] Organization [facility] Address Unknown Phone Unavailable Care Team Providers Care Float Remover Name Role Phone Claus Couch MD PCP Reason for Visit * Auth/Cert Referred By Contact Referred To Contact Status Reason Specialty Diagnoses / Procedures [facility] [phone] [place] [address] Home Health Encounter Details Care Team Description Date Type Department Aly Colón, Physical Therapist PT - HOME VISIT 04/12/2017 [facility] [address] [place] [address] Social History Date Tobacco Use [...] Signs Reading Time Taken Comments Vital Sign 138/68 04/12/2017 10:08 AM CDT Blood Pressure 100 04/12/2017 10:08 AM CDT Pulse - - Temperature 18 04/12/2017 10:08 AM CDT Respiratory Rate - - Oxygen [...] Notes Intervention Associated Status Problem/Go al Pt did modified ex program due to pain in (L) hip today. LAQ 3 x 10 reps (B) LE's, Qs x 10, Gs x 10 PT establish or upgrade Problem: Completed home program PT Description: Establish Home exercise program for or Upgrade weakness in LEs with goal Home of 4/5 left hip strength Program in order to transfer and gait slowly.. Gt with FWW x 30' no LOB very tender with walking in the (L) LE in WB to and for kitchen to front room at this time decrease due to pain (L) hip today Pt gait training Problem: Completed Description: PT Gait Evaluate and instruct Training patient and caregivers in safe gait training on all surfaces including step training as needed in home or to exit home, full weight bearing and using rolling walker. Pt trfd to and from recliner and table chair. Pt demonstrated CGA at this time but exhibited alot of moaning with this actvity x 2 PT transfer training Problem: Completed Description: PT Evaluate and instruct Transfer patient/caregiver in safe Training transfer training using appropriate body mechanics, full weight bearing, and necessary equipment. documented in this encounter Home Health Visit - Actions and Narratives Pt recieved gt training, trf traning an d ther ex with modified program due to increased in (L) hip pain that started last evening laying i n bed. Pt reports no falls at this time. Pt reports: (Dr andres says it is OA) Pt rates pain 10/1 0 at this time. Pt instructed to go to ER if pain newton nues or schedule appt with physician today. Pt reports: (I need stronger pain med so I can walk an d do more things." Pt verbalized understanding to return to Physician for further evaluation if darinel n does not receed. documented in this encounter
--- OUTSIDE RECORDS SUMMARY | 2020-03-24 14:03 | XMS REPORT | Encounter Summary ---
Author Author [facility] Organization [facility] Address Unknown Phone Unavailable Care Team Providers Care Playground Monitor Name Role Phone Claus Couch MD PCP Reason for Visit * Auth/Cert Referred By Contact Referred To Contact Status Reason Specialty Diagnoses / Procedures [facility] Imaging Services [address] [place] [phone] Radiology Encounter Details Care Team Description Date Type Department Claus Couch MD [address] [place] [id number] 04/02/2017 [facility] Imaging Se rvices Encounter [address] [address] Social History Date Tobacco Use [...] Drop in both eyes 2 times daily. 03/25/2017 04/09/2017 oxyCODONE-acetaminophen Take 2 0 (PERCOCET) 10-325 mg Tablets by Tablet mouth every 4 hours as needed for Pain, Severe. 03/25/2017 04/16/2017 albuterol HFA 90 mcg Take 2 Puffs 0 inhaler by inhalation every 4 hours as needed for Shortness of Breath. 03/25/2017 07/21/2017 FLUoxetine (PROzac) 20 mg TAKE [...] mouth daily 145 mg tablet with supper. 09/16/2016 04/09/2017 simvastatin (ZOCOR) 40 mg TAKE ONE 90 Tablet 1 tablet TABLET (40MG) BY MOUTH EVERY DAY IN THE EVENING 03/02/2016 07/21/2017 traZODone (DESYREL) 50 mg Take 1 Tab by 30 Tablet 3 tablet mouth daily at bedtime.. 11/27/2015 07/15/2017 NITROSTAT 0.4 mg Tablet, DISSOLVE 1 25 Tablet 0 Sublingual TABLET UNDER TONGUE EVERY 5 MINUTES NEEDED FOR CHEST PAIN. DO NOT EXCEED 3 DOSES. 10/07/2015 07/07/2017 fluticasone (FLONASE) 50 Administer 2 16 Gram 5 mcg/spray [place], Sprays in Suspension each nostril daily.. 08/16/2015 [...] Name Priority Date/Time Associated Diag nosis XR LUMBAR SPINE 2 OR 3 VW Routine 04/02/2017 Back pain, unspecified 10:22 AM CDT back location, unspecified back pain laterality, unspecified chronicity documented in this encounter Results * XR LUMBAR SPINE 2 OR 3 VW (04/02/2017 10:22 AM CDT) Specimen Impressions Performed At IMPRESSION: INTERFACE SYSTEM Multilevel facet spondylosis. Narrative Performed At AP and lateral lumbar spine radiographs 04/02/2017 10: 22 AM INTERFACE SYSTEM INDICATION: 66 years Male presents with back pain COMPARISON: 03 January 2015 FINDINGS: There is stable appearance of the verte bral body heights. Multilevel facet arthropathy. The disc spaces are stable. There is no fracture or subluxation. The pedicles are inta ct. Sacroiliac joints are unchanged. Surgical clips in the righ t upper and right lower abdomen. Procedure Note Interface, Bong Aok Incoming Radiology Results - 04/02/2017 10:37 AM CDT AP and lateral lumbar spine radiographs 04/02/2017 10:22 AM INDICATION: 66 years Male presents with back pain COMPARISON: 03 January 2015 FINDINGS: There is stable appearance of the vertebral body heights. Multilevel facet arthropathy. The disc spaces are stable. There is no fracture or subluxation. The pedicles are intact. Sacroiliac joints are unchanged. Surgical clips in the right upper and right lower abdomen. IMPRESSION IMPRESSION: Multilevel facet spondylosis. Performing Organization Address City/State/Zipcode Ph one Number INTERFACE SYSTEM INTERFACE SYSTEM Refer to clinic/hospital department documented in this encounter Visit Diagnoses Diagnosis Back pain, unspecified back location, u nspecified back pain laterality, unspecified chronicity documented in this encounter Additional Health Concerns Assessment Noted Time A Hypertension Plan of Care has been documented for jeremias krueger patient 02/12/2017 12:54 PM CDT documented as of this encounter
--- OUTSIDE RECORDS SUMMARY | 2020-03-24 14:03 | XMS REPORT | Encounter Summary ---
Author Author [facility] Organization [facility] Address Unknown Phone Unavailable Care Team Providers Care Doula Name Role Phone Claus Couch MD PCP Reason for Visit * Auth/Cert Referred By Contact Referred To Contact Status Reason Specialty Diagnoses / Procedures [facility] [id number] [place] [address] Home Health Encounter Details Care Team Description Date Type Department Mel Miranda RN SN - HOME VISIT 04/01/2017 Home Care Visit [facility] [address] [place] [address] Social History Date Tobacco [...] Reading Time Taken Comments Vital Sign 138/62 04/01/2017 10:11 AM CDT Blood Pressure 90 04/01/2017 10:11 AM CDT Pulse 36.8 C (98.2 F) 04/01/2017 10:11 AM CDT Temperature 18 04/01/2017 10:11 AM CDT Respiratory Rate 95% 04/01/2017 10:11 AM CDT Oxygen Saturation - - Inhaled [...] 1 problem intervention scheduled/documented in this visit Catheter Care Monthly 03/25/2017 Disciplines: catheter Penitentiary changes. PRN irrigation . Active - 2 problem interventions scheduled/documented in this visit Home Safety Home 03/25/2017 Disciplines: safety Penitentiary Active - 1 problem intervention scheduled/documented in this visit Physical Discomfort Alteration 03/25/2017 Disciplines: in comfort Penitentiary Active - 1 problem intervention scheduled/documented in this visit Pulse Oximetry Skilled 03/25/2017 Disciplines: assessment Penitentiary and monitoring of O2 saturation s. Active - 1 problem intervention scheduled/documented in this visit Skilled Observation and Skilled 03/25/2017 Assessment nursing Disciplines: observatio Penitentiary n and assessment . Variance Visit Notes Intervention Associated Status Problem/Go al Catheter change Problem: Completed Description: Catheter Sn to teach Care patient/caregivers straight catheter education requiring straight cath every 6 hours. Instruct home safety Problem: Completed Description: [...] Health Visit - Actions and Narratives Patient verbalizes that he had a fall a nd landed on his but and now has back pain that radiates up to his shoulders. This RN called Dr. Keith schaeffer's office and received a call back for patient to have x-ray. Patient verbalizes he is using t he straight cath. Patient has company over and doesn't want to check residual volume at this time. Instructed patient on risk of infection if he doesn't straight cath. He verbalizes understand ing. documented in this encounter
--- OUTSIDE RECORDS SUMMARY | 2020-03-24 14:03 | XMS REPORT | Encounter Summary ---
Author Author [facility] Organization [facility] Address Unknown Phone Unavailable Care Team Providers Care Machining Technician Name Role Phone Claus Couch MD PCP Reason for Visit * Reason Comments Medication Problem Pt. called requesting mamta smith in dilantin Encounter Details Care Team Description Date Type Department Claus Couch MD [address] [place] [address] Medication Problem (Pt. called requestin g change in dilantin ) 03/02/2017 Telephone [facility] Primar y Care [place] [address] [place] [address] Social History Date Tobacco Use [...]
--- OUTSIDE RECORDS SUMMARY | 2020-03-24 14:03 | XMS REPORT | Encounter Summary ---
Author Author [facility] Organization [facility] Address Unknown Phone Unavailable Care Team Providers Care Risk Manager Name Role Phone Claus Couch MD PCP Reason for Visit * Auth/Cert Referred By Contact Referred To Contact Status Reason Specialty Diagnoses / Procedures [facility] [id number] [place] [address] Home Health Encounter Details Care Team Description Date Type Department Mel Miranda RN SN - OASIS START OF CARE 03/25/2017 Home Care Visit [facility] [address] [place] [address] Social History Date Tobacco Use [...] Signs Reading Time Taken Comments Vital Sign 124/62 03/25/2017 12:34 PM CDT Blood Pressure 80 03/25/2017 12:34 PM CDT Pulse 36.9 C (98.4 F) 03/25/2017 12:34 PM CDT Temperature 18 03/25/2017 12:34 PM CDT Respiratory Rate 97% 03/25/2017 12:34 PM CDT Oxygen Saturation - - Inhaled [...] - OASIS START OF CARE Discipline - Detention Status Goals Interventions Problem Descriptio Start Date n Active - 1 problem intervention scheduled/documented in this visit Catheter Care 03/25/2017 Disciplines: Detention Active - 2 problem interventions scheduled/documented in this visit Home Safety 03/25/2017 Disciplines: Detention Active - 2 problem interventions scheduled/documented in this visit Knowledge deficit on 03/25/2017 preventing infection with therapies Disciplines: Detention Active - 2 problem interventions scheduled/documented in this visit Medications 03/25/2017 Disciplines: Detention Active - 1 problem intervention scheduled/documented in this visit Physical Discomfort 03/25/2017 Disciplines: Detention Active - 1 problem intervention scheduled/documented in this visit Pulse Oximetry 03/25/2017 Disciplines: Detention Active - 1 problem intervention scheduled/documented in this visit Skilled Observation and 03/25/2017 Assessment Disciplines: Detention Variance Visit Notes Intervention Associated Status Problem/Go al See narrative Catheter change Problem: Completed Catheter Care Instruct home safety Problem: Completed Home Safety Skilled assessment risk Problem: Completed for injury Home Safety Instruct infection Problem: Completed prevention Knowledge deficit on preventing infection with therapies Skilled assessment risk Problem: Completed for infection Knowledge deficit on preventing infection with therapies Instruct medications Problem: Completed Medication s Medication reconciliation done with hospital discharge med list and patients medications in the home. No discrepancies found. Skilled assessment Problem: Completed medications Medication s Skilled assessment pain Problem: Completed Physical Discomfort Sn to obtain pulse ox Problem: Completed reading Pulse Oximetry Skilled observation and Problem: Completed assessment general Skilled assessment Observatio n and Assessment documented in this encounter Home Health Visit - Actions and Narratives Educated patient and caregiver on how t o use straight catheter and how to clean it. Instructed patient over infection prevention. eugene ent demonstrated catheter use. Patient is to use straight catheter ranulfo ry 6 hours due to having urinary retention while in the hospital. Patient verbalizes that he mackenzie sn't used the straight catheter since he has been home because he has been urinating on his ow n and he hadn't been while at the hospital. Instructed patient to urinate so that this nurse evelyn cerda assess his residual urine. Patient urinated 250 ml in urinal. This nurse walked patient throu gh how to use straight catheter. Patient demonstrated that he could use it. His residual was 1200 ml. Patient verbalizes that he didn't even feel like he had urine in his bladder. Instructed patien t to straight cath himself every 6 hours as ordered. Patient verbalizes that he will do so. documented in this encounter
--- OUTSIDE RECORDS SUMMARY | 2020-03-24 14:03 | XMS REPORT | Encounter Summary ---
Author Author [facility] Organization [facility] Address Unknown Phone Unavailable Care Team Providers Care Environmental Control Administrator Name Role Phone Claus Couch MD PCP Reason for Visit * Auth/Cert Referred By Contact Referred To Contact Status Reason Specialty Diagnoses / Procedures [facility] [id number] [place] [address] Home Health Encounter Details Care Team Description Date Type Department Walter Arroyo, Physical Therapist PT - MISSED VISIT NO TRAVEL 04/02/2017 [facility] [address] [place] [address] Social History Date Tobacco Use [...] Visit Notes Intervention Associated Status Problem/Go al PT establish or upgrade Problem: Scheduled home program PT Description: Establish Home exercise program for or Upgrade weakness in LEs with goal Home of 4/5 left hip strength Program in order to transfer and gait slowly.. Pt gait training Problem: Scheduled Description: PT Gait Evaluate and instruct Training patient and caregivers in safe gait training on all surfaces including step training as needed in home or to exit home, full weight bearing and using rolling walker. PT transfer training Problem: Scheduled Description: PT Evaluate and instruct Transfer patient/caregiver in safe Training transfer training using appropriate body mechanics, full weight bearing, and necessary equipment. documented in this encounter
--- OUTSIDE RECORDS SUMMARY | 2020-03-24 14:03 | XMS REPORT | Encounter Summary ---
Author Author [facility] Organization [facility] Address Unknown Phone Unavailable Care Team Providers Care Director Of Cardiac Cath Lab Name Role Phone Claus Couch MD PCP Reason for Referral * Eval and Treat (Routine) Referred By Contact Referred To Contact Status Reason Specialty Diagnoses / Procedures Claus Couch MD [address] [place] [address] [facility] [address] [place] [address] Closed Home Health Diagnoses Closed left hip fracture, initial encounter Encounter Details Care Team Description Date Type Department Claus Couch MD [address] [place] [address] Closed left hip fracture, initial encoun ter (Primary Dx) 03/24/2017 Orders Only [facility] Primar y Care [place] [address] [place] [address] Social History Date Tobacco Use [...] Name Type Priority Associated Diag noses Ordered: 03/24/2017 AMB REFERRAL TO HOME CARE Outpatient Routine Clos ed left hip fracture, Referral initial encounter documented as of this encounter Visit Diagnoses Diagnosis Closed left hip fracture, initial encou nter - Primary documented in this encounter Additional Health Concerns Assessment Noted Time A Hypertension Plan of Care has been documented for t pati patient 02/12/2017 12:54 PM CDT documented as of this encounter
--- OUTSIDE RECORDS SUMMARY | 2020-03-24 14:03 | XMS REPORT | Encounter Summary ---
Author Author [facility] Organization [facility] Address Unknown Phone Unavailable Care Team Providers Care Jockey Agent Name Role Phone Claus Couch MD PCP Reason for Visit * Auth/Cert Referred By Contact Referred To Contact Status Reason Specialty Diagnoses / Procedures [facility] Health [address] [place] [address] Home Health Encounter Details Care Team Description Date Type Department Mel Miranda, RN CASE COMMUNICATION 03/25/2017 [facility] [address] [place] [address] Social History Date Tobacco Use [...]
--- OUTSIDE RECORDS SUMMARY | 2020-03-24 14:03 | XMS REPORT | Encounter Summary ---
Author Author [facility] Organization [facility] Address Unknown Phone Unavailable Care Team Providers Care Azure Architect Name Role Phone Claus Couch MD PCP Reason for Visit * Auth/Cert Referred By Contact Referred To Contact Status Reason Specialty Diagnoses / Procedures [facility] [address] [place] [address] Home Health Encounter Details Care Team Description Date Type Department Aly Colón, Physical Therapist PT - HOME VISIT 04/06/2017 [facility] [address] [place] [address] Social History Date Tobacco Use [...] Signs Reading Time Taken Comments Vital Sign 145/78 04/06/2017 8:23 AM CDT Blood Pressure 90 04/06/2017 8:23 AM CDT Pulse - - Temperature 20 04/06/2017 8:23 AM CDT Respiratory Rate - - Oxygen [...] Notes Intervention Associated Status Problem/Go al Pt performed AROM in standing x 10 respt, hip abd, mini squats, heel raises, marching, sitting with orange t band x 10 reps 2 secp hamstring curls, hip abd, without t band LAQ, hip flex. Ther ex performed progressing at this time. Pt ex to increase abilty to ab and trfs without (A) of caregiver and decrease fall risk. PT establish or upgrade Problem: Completed home program PT Description: Establish Home exercise program for or Upgrade weakness in LEs with goal Home of 4/5 left hip strength Program in order to transfer and gait slowly.. Pt amb 150' no LOB improved stride and amish V/C 50% in turning safety with use of FWW, CGA at this time. mod SOB with activity. Pt smoking before Rx. Pt gait training Problem: Completed Description: PT Gait Evaluate and instruct Training patient and caregivers in safe gait training on all surfaces including step training as needed in home or to exit home, full weight bearing and using rolling walker. {t trfs sit to stand for kitchen chaic x 5 (I) at this time. Pt improved with lower surface trfs at th is time. . PT transfer training Problem: Completed Description: PT Evaluate and instruct Transfer patient/caregiver in safe Training transfer training using appropriate body mechanics, full weight bearing, and necessary equipment. documented in this encounter Home Health Visit - Actions and Narratives Pt received ther ex to increased (B) LE strength, increase safety with mobility, gt traingin to decrease (A) of staff with mobilty tnad increase safety with LOB, trfs to increase ability to get on and off all surfaces with safety and de crease cargiver support. Pt progressing with all activity. increased amb at this time education on smoking and decreased O2 with ex . documented in this encounter
--- OUTSIDE RECORDS SUMMARY | 2020-03-24 14:03 | XMS REPORT | Encounter Summary ---
Author Author [facility] Organization [facility] Address Unknown Phone Unavailable Care Team Providers Care Roll Forming Machine Set Up Operator Name Role Phone Claus Couch MD PCP Reason for Visit * Reason Comments Weakness * Auth/Cert Referred By Contact Referred To Contact Status Reason Specialty Diagnoses / Procedures [facility] [address] [place] [address] Home Health Encounter Details Care Team Description Date Type Department Walter Arroyo, Physical Therapist PT - INITIAL DISCIPLINE VISIT 03/25/2017 Home Care Visit [facility] [address] [place] [address] Social History Date Tobacco Use [...] Signs Reading Time Taken Comments Vital Sign 120/70 03/25/2017 10:00 AM CDT Blood Pressure 80 03/25/2017 10:00 AM CDT Pulse 36.4 C (97.6 F) 03/25/2017 10:00 AM CDT Temperature 18 03/25/2017 10:00 AM CDT Respiratory Rate 93% 03/25/2017 10:00 AM CDT Oxygen Saturation - - [...] Home Health Visit - Actions and Narratives Returned at 1335 to complete evaluatio n. Patient has L hip and knee weakness 3+/5 inhibiting gait and other ADLs. Gait is antalgic with tendency to lose his balance to the right requiring occassional Min A for loss of balance. He is Min A with toilet transfers, and shower transfer needing a tub bench to allow him to get out of the shower without having to stand completely on LLE. Patient was Mod I in the home with basi c ADLs excluding bathing and cooking prior to his recent fall. Eval initiated but patient stated he wa s undergoing a seizure which was evident by his slurred speech. His speech improved and then w orsened a couple of times with the patient quite aware of what was going on. Vitals were well wi thin norms and he had a caregiver and a friend with hime. The nurse agreed to come earlier and he carei d if it got worse he would use his alert button. He rates his pain as 10/10 and his caregiver has jus t returned from the pharmacy with his pain medication. He took two pills. I told him I would ret urn later so we could do a better functional evaluation when his seizure had abated and his pain was under control. documented in this encounter
--- OUTSIDE RECORDS SUMMARY | 2020-03-24 14:03 | XMS REPORT | Encounter Summary ---
Author Author [facility] Organization [employer] [facility] Address Unknown Phone Unavailable Care Team Providers Care Elevator Installer Name Role Phone Claus Couch MD PCP Reason for Visit * Auth/Cert Referred By Contact Referred To Contact Status Reason Specialty Diagnoses / Procedures [facility] [address] [place] [address] Home Health Encounter Details Care Team Description Date Type Department Aly Colón, Physical Therapist PT - HOME VISIT 03/31/2017 [facility] [address] [place] [address] Social History Date Tobacco Use [...] Signs Reading Time Taken Comments Vital Sign 148/70 03/31/2017 12:21 PM CDT Blood Pressure 68 03/31/2017 12:21 PM CDT Pulse - - Temperature 17 03/31/2017 12:21 PM CDT Respiratory Rate - - Oxygen [...] Associated Status Problem/Go al Pt demonstrated HEP with upgrades to increased (B) LE strength to increase ability for (I) mobility, and decrease fall risk. Pt edcuation on HEP 90% V/C on ex tech at this time AROM all planes (B) LE: Gs, Qs SAQ LAQ, SLR, Hip Abd/add, AP, hip flex in sitting, and sit to stand trfs x 5. PT establish or upgrade Problem: Completed home program PT Description: Establish Home exercise program for or Upgrade weakness in LEs with goal Home of 4/5 left hip strength Program in order to transfer and gait slowly.. Pt demonstrate gt with FWW x 50' to and carmelo bed rm to kitchen very unsteady 90% v/c with tech ft and hand placement in turn, slowing down to increase bal, (B) knee buckling today. min (A) with mobility. Pt gait training Problem: Completed Description: PT Gait Evaluate and instruct Training patient and caregivers in safe gait training on all surfaces including step training as needed in home or to exit home, full weight bearing and using rolling walker. sit to stand trfs performed form lift chair decreased height at this time x 5 50% v/c with ft and hand placement with use of FWW CGA at this time unsteady. PT transfer training Problem: Completed Description: PT Evaluate and instruct Transfer patient/caregiver in safe Training transfer training using appropriate body mechanics, full weight bearing, and necessary equipment. documented in this encounter Home Health Visit - Actions and Narratives Pt recieved ther ex (A) LE all planes x 20-30 reps V/C 90% at this time for ex and tech. Pt demostrated gt training with 90% v/c fo r safety knee buckling at time. Pt recieved trfs training at this time with 50% v/c's with ft and mackenzie nd placement and safety with standing CGA, Pt demonstrate vani to activity at this time. min carryover with HEP at this time. Pt education on its importance. Pt is a fall risk at this time due to impu lsive behavior. Pt is fall risk at this time. Pt is im pulsive and will need continued instruction with safety and performance of mobilty and HEP. documented in this encounter
--- OUTSIDE RECORDS SUMMARY | 2020-03-24 14:03 | XMS REPORT | Encounter Summary ---
Author Author [facility] Organization [facility] Address Unknown Phone Unavailable Care Team Providers Care Vice President Of Manufacturing Name Role Phone Claus Couch MD PCP Encounter Details Care Team Description Date Type Department Claus Couch MD [address] [place] [address] Seizure (Primary Dx) 03/02/2017 Orders Only [facility] Primar y Care [place] [address] [place] [address] Social History Date Tobacco Use [...] as of this encounter Progress Notes * Karine Jim - 03/02/2017 10:30 AM CDT dil documented in this encounter Plan of Treatment Not on filedocumented as of this encounter Results * PHENYTOIN LEVEL, TOTAL (03/02/2017 11:17 AM CDT) PHENYTOIN TOTAL 10.6 10.0 - 20.0 ug/mL [facility] [employer] [facility] Specimen Blood Performing Organization Address City/State/Zipcode Ph one Number [facility] CLIA# [id number] [place] [address] [place] [address] [place] [address] documented in this encounter Visit Diagnoses Diagnosis Seizure - Primary Other convulsions documented in this encounter Additional Health Concerns Assessment Noted Time A Hypertension Plan of Care has been documented for t pati patient 02/12/2017 12:54 PM CDT documented as of this encounter
--- OUTSIDE RECORDS SUMMARY | 2020-03-24 14:03 | XMS REPORT | Encounter Summary ---
Author Author [facility] Organization [facility] Address Unknown Phone Unavailable Care Team Providers Care Mat Man Name Role Phone Claus Couch MD PCP Reason for Visit * Reason Comments Medication Refill Encounter Details Care Team Description Date Type Department Claus Couch MD [address] [place] [address] 03/25/2017 Refill [facility] Primar y Care [place] [address] [place] [address] Social History Date Tobacco [...]
--- OUTSIDE RECORDS SUMMARY | 2020-03-24 14:03 | XMS REPORT | Encounter Summary ---
Author Author [facility] Organization [facility] Address Unknown Phone Unavailable Care Team Providers Care Military Pay Technician Name Role Phone Claus Couch MD PCP Encounter Details Care Team Description Date Type Department Claus Couch MD [address] [place] [address] [facility] Out[facility] 03/02/2017 [facility] Outpatient Encounter Laboratory [address] [address] Social History Date Tobacco Use [...] Date End Date Medication Sig Dispensed Refills 03/01/2017 loratadine (CLARITIN) 10 Take 1 Tab [...] Drop in both eyes 2 times daily. 02/22/2017 04/21/2017 temazepam (RESTORIL) 15 Take 1 [...] BY MOUTH EVERY DAY IN THE EVENING 09/07/2016 03/25/2017 isosorbide mononitrate TAKE ONE 60 Tablet 5 (IMDUR) 60 mg Extended TABLET BY Release 24 hour tablet MOUTH 2 TIMES A DAY 09/07/2016 03/25/2017 FLUoxetine (PROzac) 20 mg TAKE 2 60 Capsule 5 capsule CAPSULES BY MOUTH EVERY DAY. 03/02/2016 07/21/2017 traZODone (DESYREL) 50 mg Take 1 Tab by 30 Tablet 3 tablet mouth daily at bedtime.. 11/27/2015 07/15/2017 NITROSTAT 0.4 mg Tablet, DISSOLVE 1 25 Tablet 0 Sublingual TABLET UNDER TONGUE EVERY 5 MINUTES NEEDED FOR CHEST PAIN. DO NOT EXCEED 3 DOSES. 10/07/2015 07/07/2017 fluticasone (FLONASE) 50 Administer 2 16 Gram 5 mcg/spray [place], Sprays in Suspension each nostril daily.. 08/16/2015 [...] Procedure Name Priority Date/Time Associated Diag nosis PHENYTOIN LEVEL, TOTAL Routine 03/02/2017 Seizure 11:17 AM CDT documented in this encounter Results * PHENYTOIN LEVEL, TOTAL (03/02/2017 11:17 AM CDT) PHENYTOIN TOTAL 10.6 10.0 - 20.0 ug/mL [facility] [employer] [facility] Specimen Blood Performing Organization Address City/State/Zipcode Ph one Number [facility] CLIA# [id number] [place] [address] [place] [address] documented in this encounter Visit Diagnoses Diagnosis Seizure Other convulsions documented in this encounter Additional Health Concerns Assessment Noted Time A Hypertension Plan of Care has been documented for t he patient 02/12/2017 12:54 PM CDT documented as of this encounter
--- OUTSIDE RECORDS SUMMARY | 2020-03-24 14:03 | XMS REPORT | Encounter Summary ---
Author Author [facility] Organization [facility] Address Unknown Phone Unavailable Care Team Providers Care Marine Biologist Name Role Phone Claus Couch MD PCP Reason for Visit * Auth/Cert Referred By Contact Referred To Contact Status Reason Specialty Diagnoses / Procedures [facility] Home Health [id number] [place] [address] Home Health Encounter Details Care Team Description Date Type Department Aly Colón, Physical Therapist CASE COMMUNICATION 03/31/2017 [facility] [address] [place] [address] Social History Date Tobacco Use [...]
--- OUTSIDE RECORDS SUMMARY | 2020-03-24 14:03 | XMS REPORT | Encounter Summary ---
Author Author [facility] Organization [facility] Address Unknown Phone Unavailable Care Team Providers Care Director Drug Safety Name Role Phone Claus Couch MD PCP Reason for Visit * Reason Comments Medication Refill Encounter Details Care Team Description Date Type Department Claus Couch MD [address] [place] [address] 03/01/2017 Refill [facility] Primar y Care [place] [address] [place] [address] Social History Date Tobacco Use [...]
--- OUTSIDE RECORDS SUMMARY | 2020-03-24 14:03 | XMS REPORT | Encounter Summary ---
Author Author [facility] Organization [facility] Address Unknown Phone Unavailable Care Team Providers Care Manager Forms Name Role Phone Claus Couch MD PCP Encounter Details Care Team Description Date Type Department Claus Couch MD [address] [place] [address] Back pain, unspecified back location, un specified back pain laterality, unspecified chronicity (Primary Dx) 04/01/2017 Orders Only [facility] Primar y Care [place] [address] [place] [address] Social History Date Tobacco Use [...] as of this encounter Results * XR LUMBAR SPINE [...] u nspecified back pain laterality, unspecified chronicity - Primary documented in this encounter Additional Health Concerns Assessment Noted Time A Hypertension Plan of Care has been documented for jeremias krueger patient 02/12/2017 12:54 PM CDT documented as of this encounter
--- OUTSIDE RECORDS SUMMARY | 2020-03-24 14:03 | XMS REPORT | Encounter Summary ---
Author Author [facility] Organization [facility] Address Unknown Phone Unavailable Care Team Providers Care Planting Machine Operator Name Role Phone Claus Couch MD PCP Reason for Visit * Reason Comments Medication Refill Encounter Details Care Team Description Date Type Department Claus Couch MD [address] [place] [address] 03/04/2017 Refill [facility] Primar y Care [place] [address] [place] [address] Social History Date Tobacco Use [...]
--- OUTSIDE RECORDS SUMMARY | 2020-03-24 14:03 | XMS REPORT | Encounter Summary ---
Author Author [facility] Organization [facility] Address Unknown Phone Unavailable Care Team Providers Care Transit Survey Worker Name Role Phone Claus Couch MD PCP Reason for Visit * Auth/Cert Referred By Contact Referred To Contact Status Reason Specialty Diagnoses / Procedures [facility] Health [address] [place] [address] Home Health Encounter Details Care Team Description Date Type Department Janell Marie RN SN - HOME VISIT 04/08/2017 Home Care Visit [facility] [address] [place] [address] Social History Date Tobacco Use [...] Reading Time Taken Comments Vital Sign 110/60 04/08/2017 1:00 PM CDT Blood Pressure 88 04/08/2017 1:00 PM CDT Pulse 36.1 C (97 F) 04/08/2017 1:00 PM CDT Temperature 18 04/08/2017 1:00 PM CDT Respiratory Rate 98% 04/08/2017 1:00 PM CDT Oxygen Saturation - - Inhaled [...] - SN - HOME VISIT Discipline - Longterm Status Goals Interventions Problem Descriptio Start Date n Active - 1 problem intervention scheduled/documented in this visit Catheter Care Monthly 03/25/2017 Disciplines: catheter Longterm changes. PRN irrigation . Active - 1 problem intervention scheduled/documented in this visit Knowledge deficit on Infection 03/25/2017 preventing infection with prevention therapies . Disciplines: Longterm Active - 1 problem intervention scheduled/documented in this visit Physical Discomfort Alteration 03/25/2017 Disciplines: in comfort Longterm Active - 1 problem intervention scheduled/documented in this visit Pulse Oximetry Skilled 03/25/2017 Disciplines: assessment Longterm and monitoring of O2 saturation s. Active - 1 problem intervention scheduled/documented in this visit Skilled Observation and Skilled 03/25/2017 Assessment nursing Disciplines: observatio Longterm n and assessment . Variance Visit Notes Intervention Associated Status Problem/Go al Instructed on intermittent cath, purpose, adverse reactions if he does not perform, cleaning of cath and procedure. States he will comply with cath. Catheter change Problem: Completed Description: Catheter Sn to teach Care patient/caregivers straight catheter education requiring straight cath every 6 hours. instructed on methods to avoid infection and kidney damage with urinary retention and infection. voices understanding Instruct infection Problem: Completed prevention Knowledge Description: deficit on Instruct Patient and preventing Caregiver in strategies infection to prevent with infection:frequent/proper therapies hand-washing techniques, Standard precautions, avoid crowds and persons with known infections, staying current with immunizations, s/s of infection, use of incentive spirometer, use of antibiotics and encourage adequate diet and fluid intake. Skilled assessment pain Problem: Completed Description: Physical [...] for changes in the plan of care. 98% Sn to obtain pulse ox Problem: Completed reading Pulse Description: Oximetry Monitor and record O2 saturation when sitting. Evaluate the effectiveness of current therapy, and notify physician of the need for modifications to the treatment plan. VSS, lungs clear, Skilled observation and Problem: Completed assessment general Skilled assessment Observatio Description: n and SN to perform general Assessment assessment to include vital signs and temperature. General assessment of systems: pulmonary, cardiovascular, neurologic, gastrointestinal, hematologic, musculoskeletal, renal/urinary and integumentary and report any abnormalities or concerns to the physician. documented in this encounter Home Health Visit - Actions and Narratives patient states he has not been performi ng catheterization, "I have been voiding without problems". Instructed patient to self cath 1000 c c urine returned. instructed on hazard and adverse reactions of urinary retention, kidney damage, UT I, voices understanding documented in this encounter
--- OUTSIDE RECORDS SUMMARY | 2020-03-24 14:03 | XMS REPORT | Encounter Summary ---
Author Author [facility] Organization [facility] Address Unknown Phone Unavailable Care Team Providers Care Multiple Launch Rocket System Crewmember Name Role Phone Claus Couch MD PCP Reason for Visit * Auth/Cert Referred By Contact Referred To Contact Status Reason Specialty Diagnoses / Procedures [facility] Health [address] [place] [address] Home Health Encounter Details Care Team Description Date Type Department Mel Miranda RN SN - HOME VISIT 03/29/2017 Home Care Visit [facility]alt [facility] [address] [place] [address] Social History [...] Signs Reading Time Taken Comments Vital Sign 96/58 03/29/2017 4:08 PM CDT Blood Pressure 78 03/29/2017 4:08 PM CDT Pulse 36.7 C (98.1 F) 03/29/2017 4:08 PM CDT Temperature - - Respiratory Rate 97% 03/29/2017 4:08 PM CDT Oxygen Saturation - - Inhaled [...] in this visit Catheter Care 03/25/2017 Disciplines: Shelter Active - 1 problem intervention scheduled/documented in this visit Knowledge deficit on 03/25/2017 preventing infection with therapies Disciplines: Shelter Active - 1 problem intervention scheduled/documented in this visit Physical Discomfort 03/25/2017 Disciplines: Shelter Active - 1 problem intervention scheduled/documented in this visit Pulse Oximetry 03/25/2017 Disciplines: Shelter Active - 1 problem intervention scheduled/documented in this visit Skilled Observation and 03/25/2017 Assessment Disciplines: Shelter Variance Visit Notes Intervention Associated Status Problem/Go al Catheter change Problem: Completed Catheter Care Instruct infection Problem: Completed prevention Knowledge deficit on preventing infection with therapies Skilled assessment pain Problem: Completed Physical Discomfort Sn to obtain pulse ox Problem: Completed reading Pulse Oximetry Skilled observation and Problem: Completed assessment general Skilled assessment Observatio n and Assessment documented in this encounter Home Health Visit - Actions and Narratives Patient verbalizes that he has been uri nating on his own and has not been straight cathed in over 2 days. Discussed with patient that he mackenzie d said the same thing last week and he had a residual of 1200 cc's. Asked if patient would urinate an d then see what is left in his bladder. Patient is agreeable. He verbalzies that he had just urinated before this Rn got there. Patient straight cathed himself and 1000 cc's of urine came out. Discus sed with patient the negative outcomes of retaining the urine and not following dr's orders. Patient verbalizes that he will use the straight cath from now. documented in this encounter
--- OUTSIDE RECORDS SUMMARY | 2020-03-24 14:03 | XMS REPORT | Encounter Summary ---
Author Author [facility] Organization [facility] Address Unknown Phone Unavailable Care Team Providers Care Pencil Maker Name Role Phone Claus Couch MD PCP Reason for Visit * Reason Comments Results Encounter Details Care Team Description Date Type Department Claus Couch MD [address] [place] [address] Results 03/03/2017 Telephone [facility] Primar y Care [place] [address] [place] [address] Social History Date Tobacco Use [...] * Telephone Encounter - Karine Jim - 03/03/2017 8:51 AM CDT Pt. Contacted at [phone]. Pt. Informed increase in dilantin 200mg in the a. m and 100mg in the p.m. And repeat dilantin level in 1wk documented in this encounter Plan of Treatment Not on filedocumented as of this encounter Visit Diagnoses Not on filedocumented in this encounter Additional Health Concerns Assessment Noted Time A Hypertension Plan of Care has been documented for t pati patient 02/12/2017 12:54 PM CDT documented as of this encounter
--- OUTSIDE RECORDS SUMMARY | 2020-03-24 14:03 | XMS REPORT | Encounter Summary ---
Author Author [facility] Organization [employer] [facility] Address Unknown Phone Unavailable Care Team Providers Care Coating Technician Name Role Phone Claus Couch MD PCP Reason for Visit * Auth/Cert Referred By Contact Referred To Contact Status Reason Specialty Diagnoses / Procedures [facility] Health [place] [address] [place] [address] Home Health Encounter Details Care Team Description Date Type Department Aly Colón, Physical Therapist PT - HOME VISIT 03/29/[address] [facility] [address] [place] [address] Social History Date Tobacco Use [...] Signs Reading Time Taken Comments Vital Sign 140/78 03/29/2017 9:04 AM CDT Blood Pressure 86 03/29/2017 9:04 AM CDT Pulse - - Temperature 18 03/29/2017 9:04 AM CDT Respiratory Rate - - Oxygen [...] Intervention Associated Status Problem/Go al Pt demonstrated ther ex and HEP with instruction at this time: Ther ex performed: LAQ x 10, hip flex x 10, hip abd x 10, sit to stand x 5 form chair mod (I) education on ft and had placement 80% V/c's at this time. sup in recliner: Hs x 10, SLR x 10, hip abd x 10 (B) LE's AROM. Ther ex and HEP to increased (B) LE ant decrease fall risk at this time. PT establish or upgrade Problem: Completed home program PT Description: Establish Home exercise program for or Upgrade weakness in LEs with goal Home of 4/5 left hip strength Program in order to transfer and gait slowly.. Pt demonstrate amb x 80' no rest unsteady in turns at this time. Pt instruction on ft and hand placement at this time 50% at this time V/C's at this time. Pt using FWW at this time with mobility device for bal. Pt required CGA with increased fatigue and distancewith last 10' very unsteady. Pt is a fall risk at this time. Pt gait training Problem: Completed Description: PT Gait Evaluate and instruct Training patient and caregivers in safe gait training on all surfaces including step training as needed in home or to exit home, full weight bearing and using rolling walker. SIt to stand trfs form reciner and table chair at this time x 5 attemps 80% hand and ft placement at this time with V/C's to correct. PT transfer training Problem: Completed Description: PT Evaluate and instruct Transfer patient/caregiver in safe Training transfer training using appropriate body mechanics, full weight bearing, and necessary equipment. documented in this encounter Home Health Visit - Actions and Narratives Pt recieved ther ex and HEP instruction . Pt will require continued training at this time, AROM (B) LE's on sitting and sup. Pt amb with F WW to increase stabilty. Pt required ft and had placement at this time to increase safety. Pt V/cs to correct and required CGA with bal especially last 10' of amb. Trfs sit to standing x 5 from recl iner and table with V/c's for ft and hand placement to improve bal and safety. Pt will require contrinued instruction on trf, gt and ther ex safety at this time. documented in this encounter
--- OUTSIDE RECORDS SUMMARY | 2020-03-24 14:04 | XMS REPORT | Encounter Summary ---
Author Author [facility] Organization [facility] Address Unknown Phone Unavailable Care Team Providers Care Per Diem Physical Therapist Name Role Phone Claus Couch MD PCP Reason for Visit * Reason Comments Medication Refill Encounter Details Care Team Description Date Type Department Claus Couch MD [address] [place] [address] 02/12/2017 Refill [facility] Primar y Care [place] [address] [place] [address] Social History Date Tobacco Use [...]
--- OUTSIDE RECORDS SUMMARY | 2020-03-24 14:04 | XMS REPORT | Encounter Summary ---
Author Author [facility] Organization [facility] Address Unknown Phone Unavailable Care Team Providers Care Spray Technician Name Role Phone Claus Couch MD PCP Encounter Details Care Team Description Date Type Department Claus Couch MD [address] [place] [address] [facility] 02/22/2017 [facility] Outpatient Encounter Laboratory [address] [address] Social History Date Tobacco Use [...] Date End Date Medication Sig Dispensed Refills 09/04/2016 fluticasone (FLOVENT HFA) Take 1 Puff [...] 5 capsule CAPSULES BY MOUTH EVERY DAY. 09/07/2016 03/01/2017 loratadine (CLARITIN) 10 Take 1 Tab by 30 Tablet 5 mg tablet mouth daily. 03/02/2016 07/21/2017 traZODone (DESYREL) 50 mg Take 1 Tab by 30 Tablet 3 tablet mouth daily at bedtime.. 11/27/2015 07/15/2017 NITROSTAT 0.4 mg Tablet, DISSOLVE 1 25 Tablet 0 Sublingual TABLET UNDER TONGUE EVERY 5 MINUTES NEEDED FOR CHEST PAIN. DO NOT EXCEED 3 DOSES. 10/07/2015 07/07/2017 fluticasone (FLONASE) 50 Administer 2 16 Gram 5 mcg/spray [place], Sprays in Suspension each nostril daily.. 08/16/2015 [...] Associated Diag nosis PHENYTOIN LEVEL, TOTAL Routine 02/22/2017 Elevate d phenytoin level 7:57 AM CDT documented in this encounter Results * PHENYTOIN LEVEL, TOTAL (02/22/2017 7:57 AM CDT) PHENYTOIN TOTAL 15.9 10.0 - 20.0 ug/mL [facility] [employer] [facility] Specimen Blood Performing Organization Address City/State/Zipcode Ph one Number [facility] CLIA# [id number] [place], [place] [address] - [address] documented in this encounter Visit Diagnoses Diagnosis Elevated phenytoin level documented in this encounter Additional Health Concerns Assessment Noted Time A Hypertension Plan of Care has been documented for t pati patient 02/12/2017 12:54 PM CDT documented as of this encounter
--- OUTSIDE RECORDS SUMMARY | 2020-03-24 14:04 | XMS REPORT | Encounter Summary ---
Author Author [facility] Organization [facility] Address Unknown Phone Unavailable Care Team Providers Care Mechanical Tech Name Role Phone Claus Couch MD PCP Reason for Visit * Reason Comments Medication Refill Encounter Details Care Team Description Date Type Department Claus Couch MD [address] [place] [address] 12/15/2016 Refill [facility] Primar y Care [place] [address] [place] [address] Social History Date Tobacco Use [...]
--- OUTSIDE RECORDS SUMMARY | 2020-03-24 14:04 | XMS REPORT | Encounter Summary ---
Author Author [facility] Organization [facility] Address Unknown Phone Unavailable Care Team Providers Care Furniture Assembly Supervisor Name Role Phone Claus Couch MD PCP Encounter Details Care Team Description Date Type Department Claus Couch MD [address] [place] [address] Seizure (Primary Dx) 02/12/2017 Orders Only [facility] Primar y Care [place] [address] [place] [address] Social History Date Tobacco [...] Name Type Priority Associated Diag noses Expected: 02/12/2017, Expires: 8 PHENYTOIN LEVEL, TOTAL Lab Routine Seizure documented as of this encounter Visit Diagnoses Diagnosis Seizure - Primary Other convulsions documented in this encounter Additional Health Concerns Assessment Noted Time A Hypertension Plan of Care has been documented for t pati patient 02/12/2017 12:54 PM CDT documented as of this encounter
--- OUTSIDE RECORDS SUMMARY | 2020-03-24 14:04 | XMS REPORT | Encounter Summary ---
Author Author [facility] Organization [facility] Address Unknown Phone Unavailable Care Team Providers Care Seasonal Driver Name Role Phone Claus Couch MD PCP Reason for Visit * Reason Comments Medication Refill Encounter Details Care Team Description Date Type Department Claus Couch MD [address] [place] [address] 02/22/2017 Refill [facility] Primar y Care [place] [address] [place] [address] Social History Date Tobacco [...]
--- OUTSIDE RECORDS SUMMARY | 2020-03-24 14:04 | XMS REPORT | Encounter Summary ---
Author Author [facility] Organization [facility] Address Unknown Phone Unavailable Care Team Providers Care Winder Hand Name Role Phone Claus Couch MD PCP Reason for Visit * Reason Comments Annual Wellness Visit (Medicare) Encounter Details Care Team Description Date Type Department Claus Couch MD [address] [place] [address] Type 2 diabetes mellitus with diabetic n europathy, without long-term current use of insulin (Primary Dx); Seizure; Bipolar disorder, unspecified; Essential hypertension 02/12/2017 Office Visit [facility] [place] [address] [place] [address] Social History Date Tobacco Use [...] Signs Reading Time Taken Comments Vital Sign 128/78 02/12/2017 8:37 AM CDT Blood Pressure - - Pulse - - Temperature - - Respiratory Rate - - Oxygen Saturation - - Inhaled Oxygen Concentration 90.3 kg (199 lb) 02/12/2017 8:37 AM CDT Weight 167.6 cm (5' 6") 02/12/2017 8:37 AM CDT Height 32.12 02/12/2017 8:37 AM CDT Body Mass Index documented in this encounter Patient Instructions * Patient Instructions* Claus Couch MD - 02/12/2017 8:56 AM CDT Hospital Encounter on 02/12/17 (from the past 168 hour(s)) CBC WITH DIFFERENTIAL Collection Time: 02/12/17 7:58 AM Result Value Ref Range WBC 7.3 3.6 - 11.1 K/uL RBC 4.95 4.49 - 5.52 M/uL HEMOGLOBIN 14.5 13.3 - 16.5 g/dL HEMATOCRIT 41.9 40.7 - 48.9 % MCV 84.6 82.7 - 97.1 fL MCH 29.3 27.1 - 32.3 pg MCHC 34.6 31.3 - 34.9 g/dL RDW 13.7 11.5 - 14.7 % RDW-STDEV 42.5 37.2 - 47.6 fL PLATELETS 302 136 - 352 K/uL MPV 7.8 (L) 8.6 - 11.8 fL NEUTROPHILS 64 44 - 74 % LYMPHOCYTES 26 16 - 44 % MONOCYTES 8 4 - 11 % EOSINOPHILS 1 0 - 6 % BASOPHILS 0 0 - 1 % IMMATURE GRANULOCYTES 1 0 - 1 % NEUTROPHIL ABSOLUTE 4.66 1.54 - 7.18 K/uL LYMPHOCYTE ABSOLUTE 1.90 0.69 - 3.61 K/uL MONOCYTE ABSOLUTE 0.56 0.19 - 0.95 K/uL EOSINOPHIL ABSOLUTE 0.08 0.00 - 0.44 K/uL BASOPHILS ABSOLUTE 0.03 0.00 - 0.10 K/uL IMMATURE GRANULOCYTES ABSOLUTE 0.04 0.00 - 0.09 K/uL LIPID PANEL Collection Time: 02/12/17 7:58 AM Result Value Ref Range CHOLESTEROL 159 <200 mg/dL TRIGLYCERIDE 106 <150 mg/dL HDL 64 (H) 40 - 59 mg/dL LDL CALCULATED 74 <100 mg/dL NON-HDL CHOLESTEROL 95 <130 mg/dL Narrative TOTAL CHOLESTEROL mg/dL Desirable [...] Panels (NCEP/AMA) COMPREHENSIVE METABOLIC PANEL Collection Time: 02/12/17 7:58 AM Result Value Ref Range SODIUM 138 136 - 145 mmol/L POTASSIUM 4.3 3.5 - 5.1 mmol/L CHLORIDE 97 (L) 98 - 107 mmol/L CO2 26 22 - 29 mmol/L CALCIUM 9.4 8.8 - 10.2 mg/dL BUN 12 8 - 23 mg/dL CREATININE 0.89 0.67 - 1.17 mg/dL GLUCOSE 151 (H) 70 - 100 mg/dL TOTAL PROTEIN 7.2 6.6 - 8.7 g/dL ALBUMIN 4.5 3.5 - 5.2 g/dL BILIRUBIN TOTAL <0.1 <=1.2 mg/dL ALKALINE PHOSPHATASE 57 40 - 129 U/L AST 13 <=41 U/L ALT 13 10 - 50 U/L GFR >60 >=60 mL/min/1.73 sq meter GFR, >60 >=60 mL/min/1.73 sq meter ANION GAP 15 4 - 20 mmol/L HEMOGLOBIN A1C Collection Time: 02/12/17 7:58 AM Result Value Ref Range HEMOGLOBIN A1C 6.2 (H) 4.8 - 5.9 % EST. AVG GLUCOSE, A1C 131 mg/dL MICROALBUMIN/CREATININE RATIO, RANDOM UR Collection Time: 02/12/17 7:58 AM Result Value Ref Range MICROALBUMIN, URINE <1.2 No Reference Range mg/dL CREATININE, URINE 27.7 (L) 40.0 - 278.0 mg/dL Narrative Condition Microalbumin/Creat ratio Normal Males <17 Normal Females <25 Microalbuminuria Males 17-299 Microalbuminuria Females 25-299 Overt proteinuria >=300 Unable to calculate urine microalbumin/creatinine ratio due to below linear urin e microalbumin result. *Note: Due to a large number of results and/or encounters for the requested time period, some results have not been displayed. A complete set of results can be found in Results Review. documented in this encounter Progress Notes * Claus Couch MD - 02/12/2017 12:49 PM CDT MEDICARE ANNUAL WELLNESS Oliverio Dalton is a 66 y.o. male here today for his Annual Wellness Visit ([facility]) HEALTH RISK ASSESSMENT He has completed his Health Risk Assessment. I have reviewed this with the eugene ent. See scanned copy in chart. Areas of self-identified risk are addressed bel ow. In general, the patient feels they are in good physical health. MEDICAL RECORD UPDATE Past Medical [...] [facility] [place] HERNIA REPAIR 1989 And age 4 HX LAP CHOLECYSTECTOMY 05/17/07 HX SURGICAL OTHER 05/2001 4 bypass HX SURGICAL OTHER 2001 Eyelids shortened HX SURGICAL OTHER 1999 Toenails removed HX SURGICAL OTHER 11/2001 PEA with IOL, OU HX SURGICAL OTHER 04/12 Heart stent HX SURGICAL OTHER 09/12 Stents X5 HX SURGICAL OTHER 08/14 Stents HX SURGICAL OTHER 07/11 Colonoscopy HX TURP 08/2003 [place] COLONOSCOPY FLX DX W/COLLJ SPEC WHEN PFRMD 02/01/2009 COLONOSCOPY performed by BEULAH ZHOU at [facility] [place] COLONOSCOPY FLX DX W/COLLJ SPEC WHEN PFRMD 12/28/2013 COLONOSCOPY performed by Beulah Zhou MD at [facility] [place] LAP,APPENDECTOMY 05/28/2012 APPENDECTOMY LAPAROSCOPIC performed by Beulah Zhou MD at [facility] [place] REPAIR UMBILICAL JOSE,5+Y/O,REDUC 05/28/2012 HERNIA UMBILICAL REPAIR performed by Beulah Zhou MD at [facility] [place] PSA 09/13 Family History Problem Relation [...] and updated in computerized eugene ent record. [facility] [place], [place] - [address] [place] [address] Care Providers: Patient Care Team: Claus Couch [...] PHQ-9 score > 9 PHQ-2 Total: 6 (02/12/17 1200) His antidepressant medication was reviewed. EXAMINATION Visit Vitals BP 128/78 Ht 5' 6" (1.676 m) Wt 90.3 kg (199 lb) BMI 32.12 kg/m2 Blood Pressure POC BP Readings from Last 3 Encounters: 02/12/17 128/78 12/07/16 122/80 11/27/16 (!) 150/80 Known diagnosis of HTN. BMI POC Body mass index is 32.12 kg/(m^2). Normal BMI ranges: 18-64 yrs: 18.5 to 25 65 yrs and older: 23 to 30 Abnormal high BMI: patient counseled on lifestyle mod ifications including weight loss and daily exercise. Weight management options d iscussed. Visual Acuity Corrected: L 20/70 R 20/40 Nursing Visual Acuity Documentation: R Eye: 40 (02/12/17 1200) L Eye: 70 (02/12/17 1200) Corrected or Uncorrected?: Corrected (02/12/17 1200) Hearing screen Degree of hearing loss: mild FUNCTIONAL ABILITY AND SAFETY Pain Assessment Are you having pain right now? No Abuse screen/ and home safety evaluation Negative Fall Risk(QM) He has had two or more falls in the past year. Social Support/[place]: Patient resides with alone in independent living. Activities of Daily Living: Requires assistance with ambulation, bathing and hygiene, grooming and dressing Adult Nutritional Screen No nutritional concerns Tobacco Use(QM) reports that he has been smoking Cigarettes. He has a 40.00 pack-year smoking history. He has never used smokeless tobacco. He was counseled to discontinue tobacco use. Alcohol Use reports that he does not drink alcohol. Drug Use reports that he does not use illicit drugs. Exercise/Other Exercise: rarely END OF LIFE PLANNING Patient's End of [...] Maintenance Due Topic Date Due DIABETES ANNUAL FOOT EXAM 1968 DIABETES ANNUAL RETINAL EXAM 1968 DIABETES MICROALBUMIN ANNUAL SCREEN 08/15/2013 ORDERS / REFERRALS / COUNSELING AND FOLLOW-UP Based upon these findings and review of any previous Wellness Visit recommendati ons the following treatment plan was recommended and discussed with the patient. No previously unaddressed health risks were detected. Recommended continuing cu rrent level of support, with repeat assessment in 1 year or sooner as needed. Orders Placed This Encounter PHENYTOIN TOTAL CBC WITH DIFFERENTIAL (3 MONTHS X 1) LIPID PANEL (3 MONTHS X 1) CMP (3 MONTHS X 1) HEMOGLOBIN A1C (3 MONTHS X 1) PHENYTOIN TOTAL gabapentin (NEURONTIN) 100 mg capsule pantoprazole (PROTONIX) 40 mg Tablet, Delayed Release (E.C.) Education and counseling provided: Age appropriate based on today's review and evaluation Mr. Dalton voiced understanding and agreement with the treatment plan. He understa nds the importance of taking his medications and keeping follow-up appointments. All questions were answered. Dymsd-Pncii-Kjqescj will be provided to patient upon check-out. ACUTE AND/OR CHRONIC ISSUES REQUIRING EVALUATION AND MANAGEMENT OUTSIDE THE WELL NESS VISIT Yes: Per E&M documentation: Oliverio Dalton is a 66 y.o. male comes in today for a follow up on hyperlipide michi, hypertension, diabetes and seizures taking medications as instructed, no m edication side effects noted, no TIAs, no chest pain on exertion, no dyspnea on exertion, no swelling of anklesno polyuria or polydipsia, no numbness, tingling or pain in extremities has LDL goal is under 70 denies any other difficulties ov erall feels good . I have reviewed the patient's medical family and surgical history in detail and updated the computerized patient record. ROS neg except for the above mentioned OBJECTIVE: Physical Exam: Visit Vitals BP 128/78 Ht 5' 6" (1.676 m) Wt 90.3 kg (199 lb) BMI 32.12 kg/m2 General appearance: alert, in no distress [...] normal tone Diabetic foot exam: Visual: no ulceration, no callous formation and toenail onychomycosis Sensory:abnormal monofilament testing bilaterally Pulses: normal bilaterally Lab Results Component Value Date/Time SODIUM 138 02/12/2017 07:58 AM POTASSIUM 4.3 02/12/2017 07:58 AM CHLORIDE 97 (L) 02/12/2017 07:58 AM CO2 26 02/12/2017 07:58 AM CALCIUM 9.4 02/12/2017 07:58 AM BUN 12 02/12/2017 07:58 AM CREATININE 0.89 02/12/2017 07:58 AM GLUCOSE 151 (H) 02/12/2017 07:58 AM TOTAL PROTEIN 7.2 02/12/2017 07:58 AM ALBUMIN 4.5 02/12/2017 07:58 AM BILIRUBIN TOTAL <0.1 02/12/2017 07:58 AM ALKALINE PHOSPHATASE 57 02/12/2017 07:58 AM AST 13 02/12/2017 07:58 AM ALT 13 02/12/2017 07:58 AM ANION GAP 15 02/12/2017 07:58 AM BUN/CREAT RATIO 19.8 12/02/2012 09:43 PM CHOLESTEROL 159 02/12/2017 07:58 AM HDL 64 (H) 02/12/2017 07:58 AM LDL CALCULATED 74 02/12/2017 07:58 AM LDL CHOLESTEROL, DIRECT 125 12/10/2011 09:05 AM TRIGLYCERIDE 106 02/12/2017 07:58 AM HEMOGLOBIN A1C 6.2 (H) 02/12/2017 07:58 AM TSH 1.69 10/01/2006 05:40 AM ASSESSMENT: Encounter Diagnoses Name Primary? Type 2 diabetes mellitus with diabetic neuropathy, without long-term current use of insulin Yes Seizure Bipolar disorder, unspecified Essential hypertension PLAN: Orders Placed This Encounter PHENYTOIN TOTAL CBC WITH DIFFERENTIAL (3 MONTHS X 1) LIPID PANEL (3 MONTHS X 1) CMP (3 MONTHS X 1) HEMOGLOBIN A1C (3 MONTHS X 1) PHENYTOIN TOTAL gabapentin (NEURONTIN) 100 mg capsule pantoprazole (PROTONIX) 40 mg Tablet, Delayed Release (E.C.) follow up in 3 months current treatment plan is effective, no change in therapy reviewed medications and side effects in detail reviewed diet, exercise and weight control cardiovascular risk and specific lipid/LDL goals reviewed recommended sodium restriction. documented in this encounter Plan of Treatment Not on filedocumented as of this encounter Results * PHENYTOIN LEVEL, TOTAL (02/12/2017 7:58 AM CDT) PHENYTOIN TOTAL 23.5 (H) 10.0 - 20.0 ug/mL [facility] [place] Specimen Blood Performing Organization Address City/State/Zipcode Ph one Number [facility] CLIA# [id number] [place], [place] [address] [address] documented in this encounter Visit Diagnoses Diagnosis Type 2 diabetes mellitus with diabetic neuropathy, without long-term current use of insulin - Primary Seizure Other convulsions Bipolar disorder, unspecified Essential hypertension Unspecified essential hypertension documented in this encounter Additional Health Concerns Assessment Noted Time A Hypertension Plan of Care has been documented for t he patient 02/12/2017 12:54 PM CDT documented as of this encounter
--- OUTSIDE RECORDS SUMMARY | 2020-03-24 14:04 | XMS REPORT | Encounter Summary ---
Author Author [facility] Organization [facility] Address Unknown Phone Unavailable Care Team Providers Care Compressed Gases Tester Name Role Phone Claus Couch MD PCP Reason for Visit * Reason Comments Post Hospital Check dcd 1 week from hospital fr om seizure doing better Encounter Details Care Team Description Date Type Department Claus Couch MD [address] [place] [address] Seizure (Primary Dx) 12/07/2016 Office Visit [facility] Prim[facility] y Care [place] [address] [place] [address] Social History Date Tobacco Use [...] Signs Reading Time Taken Comments Vital Sign 122/80 12/07/2016 10:21 AM IT ACCOUNT MANAGER Blood Pressure - - Pulse 36.6 C (97.8 F) 12/07/2016 10:21 AM IT ACCOUNT MANAGER Temperature - - Respiratory Rate - - Oxygen Saturation - - Inhaled Oxygen Concentration 90.3 kg (199 lb) 12/07/2016 10:21 AM IT ACCOUNT MANAGER Weight 167.6 cm (5' 6") 12/07/2016 10:21 AM IT ACCOUNT MANAGER Height 32.12 12/07/2016 10:21 AM IT ACCOUNT MANAGER Body Mass Index documented in this encounter Progress Notes * Claus Couch MD - 12/07/2016 12:46 PM IT ACCOUNT MANAGER Oliverio Dalton is a 66 y.o. male History of Present Illness The history is provided by the patient. The medical record reflects the History of Present Illness as obtained by myself in discussion with the patient. Has been doing well has not had any seizures since changing the dose on the meds Review of Systems Review of Systems Constitutional: [...] and behavioral problems. Physical Exam Blood pressure 122/80, temperature 97.8 F (36.6 C), temperature source Tymp anic, height 5' 6" (1.676 m), weight 90.3 kg (199 lb). Physical Exam Constitutional: He appears well-developed and well-nourished. HENT: Head: Normocephalic and atraumatic. Right Ear: External ear normal. Left Ear: External ear normal. Nose: Nose normal. Mouth/Throat: Oropharynx is clear and moist. Eyes: Conjunctivae and EOM are normal. Pupils are equal, round, and reactive to light. Neck: Normal range of motion. Neck supple. Cardiovascular: Normal rate, regular rhythm, normal heart sounds and intact dist al pulses. Pulmonary/Chest: Effort normal and breath sounds normal. Abdominal: Soft. Bowel sounds are normal. ASSESSMENT: Encounter Diagnosis Name Primary? Seizure Yes PLAN: No hcanges follow up in january ACCOUNT MANAGER documented in this encounter Plan of Treatment Not on filedocumented as of this encounter Visit Diagnoses Diagnosis Seizure - Primary Other convulsions documented in this encounter
--- OUTSIDE RECORDS SUMMARY | 2020-03-24 14:04 | XMS REPORT | Encounter Summary ---
Author Author [facility] Organization [facility] Address Unknown Phone Unavailable Care Team Providers Care Nurse Healthcare Manager Name Role Phone Claus Couch MD PCP Reason for Visit * Reason Comments Medication Refill Encounter Details Care Team Description Date Type Department Claus Couch MD [address] [place] [address] 12/14/2016 Refill [facility] [place] [address] [place] [address] Social History Date Tobacco Use [...]
--- OUTSIDE RECORDS SUMMARY | 2020-03-24 14:04 | XMS REPORT | Encounter Summary ---
Author Author [facility] Organization [facility] Address Unknown Phone Unavailable Care Team Providers Care Asphalt Screed Operator Name Role Phone Claus Couch MD PCP Reason for Visit * Reason Comments Medication Refill Encounter Details Care Team Description Date Type Department Claus Couch MD [address] [place] [address] 01/18/2017 Refill [facility] [place] [address] [place] [address] Social History Date Tobacco Use [...]
--- OUTSIDE RECORDS SUMMARY | 2020-03-24 14:04 | XMS REPORT | Encounter Summary ---
Author Author [facility] Organization [facility] Address Unknown Phone Unavailable Care Team Providers Care Civil Celebrant Name Role Phone Claus Couch MD PCP Reason for Visit * Reason Comments Medication Refill Encounter Details Care Team Description Date Type Department Claus Couch MD [address] [place] [address] 01/04/2017 Refill [facility] [place] [address] [place] [address] Social History Date Tobacco [...]
--- OUTSIDE RECORDS SUMMARY | 2020-03-24 14:04 | XMS REPORT | Encounter Summary ---
Author Author [facility] Organization [facility] Address Unknown Phone Unavailable Care Team Providers Care Capital Campaign Fundraiser Name Role Phone Claus Couch MD PCP Encounter Details Care Team Description Date Type Department Claus Couch MD [address] [place] [address] Seizure (Primary Dx) 02/22/2017 Orders Only [facility] [place] [address] [place] [address] Social History Date Tobacco [...]
--- OUTSIDE RECORDS SUMMARY | 2020-03-24 14:04 | XMS REPORT | Encounter Summary ---
Author Author [facility] Organization [facility] Address Unknown Phone Unavailable Care Team Providers Care Manager Commission Name Role Phone Claus Couch MD PCP Reason for Visit * Reason Comments Medication Review Encounter Details Care Team Description Date Type Department Claus Couch MD [address] [place] [address] Medication Review 02/15/2017 Telephone [facility] Prim[facility] Care [place] [address] [place] [address] Social History Date Tobacco Use [...]
--- OUTSIDE RECORDS SUMMARY | 2020-03-24 14:04 | XMS REPORT | Encounter Summary ---
Author Author [facility] Organization [facility] Address Unknown Phone Unavailable Care Team Providers Care Line Service Attendant Name Role Phone Claus Couch MD PCP Reason for Visit * Reason Comments Medication Refill Encounter Details Care Team Description Date Type Department Claus Couch MD [address] [place] [address] 12/29/[address] [facility] [place] [address] [place] [address] Social History Date Tobacco Use [...]
--- OUTSIDE RECORDS SUMMARY | 2020-03-24 14:04 | XMS REPORT | Encounter Summary ---
Author Author [facility] Organization [facility] Address Unknown Phone Unavailable Care Team Providers Care Family And Consumer Science Professor Name Role Phone Claus Couch MD PCP Encounter Details Care Team Description Date Type Department Claus Couch MD [address] [place] [address] Elevated phenytoin level (Primary Dx) 02/15/2017 Orders Only [facility] [place] [address] [place] [address] Social History Date Tobacco Use [...] PHENYTOIN TOTAL 15.9 10.0 - 20.0 ug/mL [facility] [employer] [facility] Specimen Blood Performing Organization Address City/State/Zipcode Ph one Number [facility] CLIA# [id number] [place], [place] [address] - [address] documented in this encounter Visit Diagnoses Diagnosis Elevated phenytoin level - Primary documented in this encounter Additional Health Concerns Assessment Noted Time A Hypertension Plan of Care has been documented for t pati patient 02/12/2017 12:54 PM CDT documented as of this encounter
--- OUTSIDE RECORDS SUMMARY | 2020-03-24 14:04 | XMS REPORT | Encounter Summary ---
Author Author [facility] Organization [facility] Address Unknown Phone Unavailable Care Team Providers Care Building Construction Inspector Name Role Phone Claus Couch MD PCP Reason for Visit * Reason Comments Medication Refill Encounter Details Care Team Description Date Type Department Claus Couch MD [address] [place] [address] 02/08/2017 Refill [facility] Prim[facility] [place] [address] [place] [address] Social History Date Tobacco Use [...]
--- OUTSIDE RECORDS SUMMARY | 2020-03-24 14:04 | XMS REPORT | Encounter Summary ---
Author Author [facility] Organization [facility] Address Unknown Phone Unavailable Care Team Providers Care Solar Panel Installation Supervisor Name Role Phone Claus Couch MD PCP Encounter Details Care Team Description Date Type Department Claus Couch MD [address] [place] [address] [facility] 02/12/2017 [facility] Outpatient Encounter Laboratory [address] [address] Social History Date Tobacco Use [...] Drop in both eyes 2 times daily. 02/12/2017 07/21/2017 gabapentin (NEURONTIN) Take 1 30 [...] 5 mg tablet mouth daily at bedtime. 11/27/2016 02/15/2017 phenytoin sodium Take 1 60 Capsule 0 (DILANTIN) 200 mg Capsule Capsule (200 mg) by mouth 2 times daily. 10/19/2016 07/07/2017 ramipril (ALTACE) 10 mg Take [...] 30 Tablet 5 mg tablet mouth daily. 07/31/2016 02/22/2017 temazepam (RESTORIL) 15 Take 1 30 Capsule 5 mg capsule Capsule (15 mg) by mouth nightly as needed for Insomnia. 03/02/2016 07/21/2017 traZODone (DESYREL) 50 mg Take 1 Tab by 30 Tablet 3 tablet mouth daily at bedtime.. 11/27/2015 07/15/2017 NITROSTAT 0.4 mg Tablet, DISSOLVE 1 25 Tablet 0 Sublingual TABLET UNDER TONGUE EVERY 5 MINUTES NEEDED FOR CHEST PAIN. DO NOT EXCEED 3 DOSES. 10/07/2015 07/07/2017 fluticasone (FLONASE) 50 Administer 2 16 Gram 5 mcg/spray [place], Sprays in Suspension each nostril daily.. 08/16/2015 [...] Diag noses Added to HDF configuration to whit bethea will have ORD item 7061 populate with time. for 1 Occurrences starting 02/12/2017 until 02/12/2017 PHENYTOIN LEVEL, TOTAL Lab Routine Seizure documented as of this encounter Procedures Comments Procedure Name Priority Date/Time Associated Diag nosis MICROALBUMIN/CREATININE Stat 02/12/2017 Type 2 diabetes mellitus RATIO, RANDOM UR 7:58 AM CDT without complicatio n CBC WITH DIFFERENTIAL Stat 02/12/2017 Type 2 d iabetes mellitus 7:58 AM CDT without complication HEMOGLOBIN A1C Stat 02/12/2017 Type 2 diabetes mellitus 7:58 AM CDT without complication PHENYTOIN LEVEL, TOTAL Add on 02/12/2017 Seizure 7:58 AM CDT LIPID PANEL Stat 02/12/2017 Type 2 diabetes mellitus 7:58 AM CDT without complication COMPREHENSIVE METABOLIC Stat 02/12/2017 Type 2 diabetes mellitus PANEL 7:58 AM CDT without complicatio n documented in this encounter Results * PHENYTOIN LEVEL, TOTAL (02/12/2017 7:58 AM CDT) Pathologist [facility] PHENYTOIN TOTAL 23.5 (H) 10.0 - 20.0 ug/mL [facility]ATORY [facility] [place] Specimen Blood Performing Organization Address [facility] one [facility] LABORATORY [facility] CLIA# [id number] [place] [address] [address] * MICROALBUMIN/CREATININE RATIO, RANDOM UR (02/12/2017 7:58 AM CDT) [facility] MICROALBUMIN, <1.2 No Reference Range [facility] URINE mg/dL LABORATORY SERVICES - [place] CREATININE, 27.7 (L) 40.0 - 278.0 mg/dL [facility] URINE Comment: LABORATORY Reference Range varies with [facility] fluid intake and diet. FAYE Specimen Urine - Urine specimen obtained by clean catch procedure (specimen) Narrative Performed At [facility] Microalbumin/Creat ratio [facility] LABORATORY S ERVICES - [place] Normal Males <17 [place] Normal Females <25 Microalbuminuria Males 17-299 Microalbuminuria Females 25-299 Overt proteinuria >=300 Unable to calculate urine microalbumin/ creatinine ratio due to below linear urine microalbumin result. Performing Organization Address [facility] one [facility] .[employer] [facility] CLIA# [id number] [place] [address] [address] * HEMOGLOBIN A1C (02/12/2017 7:58 AM CDT) [facility] HEMOGLOBIN A1C 6.2 (H) 4.8 - 5.9 % [facility] LABORATORY [facility] - [place] EST. AVG 131 mg/dL [facility] GLUCOSE, A1C LABORATORY [facility] [place] Specimen Blood Performing Organization Address [facility] one [facility] LABORATORY [facility] CLIA# [id number] [place] [address] [place] [address] [facility] * COMPREHENSIVE METABOLIC PANEL (02/12/2017 7:58 AM CDT) [facility] SODIUM 138 136 - 145 mmol/L [facility] [place] POTASSIUM 4.3 3.5 - 5.1 mmol/L [facility] [place] CHLORIDE 97 (L) 98 - 107 mmol/L [facility] [place] CO2 26 22 - 29 mmol/L [facility] [place] CALCIUM 9.4 8.8 - 10.2 mg/dL [facility] [place] BUN 12 8 - 23 mg/dL [facility] [place] CREATININE 0.89 0.67 - 1.17 mg/dL [facility] [place] GLUCOSE 151 (H) 70 - 100 mg/dL [facility] [place] TOTAL PROTEIN 7.2 6.6 - 8.7 g/dL [facility] [place] ALBUMIN 4.5 3.5 - 5.2 g/dL [facility] [place] BILIRUBIN TOTAL <0.1 <=1.2 mg/dL [facility] [place] ALKALINE 57 40 - 129 U/L [facility] PHOSPHATASE [facility] [place] AST 13 <=41 U/L [facility] [place] ALT 13 10 - 50 U/L [facility] [place] GFR >60 >=60 mL/min/1.73 sq [facility] Comment: meter LABORATORY eGFR has not been validated [facility] for use in the elderly (> [...] result. GFR, >60 >=60 mL/min/1.73 sq [facility] meter [facility]AT[facility] - [place] ANION GAP 15 4 - 20 mmol/L [facility] - [place] Specimen Blood Performing Organization Address City/State/Zipcode Ph one Number [facility] SERVICES CLIA# [id number] [place] [address] [address] * LIPID PANEL (02/12/2017 7:58 AM CDT) CHOLESTEROL 159 <200 mg/dL [facility] LABORATORY [facility] [place] TRIGLYCERIDE 106 <150 mg/dL [facility] [place] HDL 64 (H) 40 - 59 mg/dL [facility] [place] LDL CALCULATED 74 <100 mg/dL [facility] [place] NON-HDL 95 <130 mg/dL [facility] CHOLESTEROL LAB[facility]ATORY [facility] - [place] Specimen Blood Narrative Performed At TOTAL CHOLESTEROL mg/dL [facility] LABORATORY Desirable <200 [facility] - [facility] Borderline high 200-239 FAY[facility] High >=240 [facility] CLIA# [id number] [place] [address] * CBC WITH DIFFERENTIAL (02/12/2017 7:58 AM CDT) WBC 7.3 3.6 - 11.1 K/uL [facility] [place] RBC 4.95 4.49 - 5.52 M/uL [facility] LABORATORY [facility] HEMOGLOBIN 14.5 13.3 - 16.5 g/dL [facility] LABORATORY [facility] [place] HEMATOCRIT 41.9 40.7 - 48.9 % [facility] [place] MCV 84.6 82.7 - 97.1 fL [facility] [place] MCH 29.3 27.1 - 32.3 pg [facility] [place] MCHC 34.6 31.3 - 34.9 g/dL [facility] [place] RDW 13.7 11.5 - 14.7 % [facility] [place] RDW-STDEV 42.5 37.2 - 47.6 fL [facility] [place] PLATELETS 302 136 - 352 K/uL [facility] [place] MPV 7.8 (L) 8.6 - 11.8 fL [facility] [place] NEUTROPHILS 64 44 - 74 % [facility] [place] LYMPHOCYTES 26 16 - 44 % [facility] [place] MONOCYTES 8 4 - 11 % [facility] [place] EOSINOPHILS 1 0 - 6 % [facility] [place] BASOPHILS 0 0 - 1 % [facility] [place] IMMATURE 1 0 - 1 % [facility] GRANULOCYTES [facility] [place] NEUTROPHIL 4.66 1.54 - 7.18 K/uL [facility] ABSOLUTE [facility] [place] LYMPHOCYTE 1.90 0.69 - 3.61 K/uL [facility]UTE [facility] [place] MONOCYTE 0.56 0.19 - 0.95 K/uL [facility]UTE [facility] [place] EOSINOPHIL 0.08 0.00 - 0.44 K/uL [facility]UTE [facility] [place] BASOPHILS 0.03 0.00 - 0.10 K/uL [facility]UTE [facility] [place] IMMATURE 0.04 0.00 - 0.09 K/uL [facility] GRANULOCYTES [facility] ABSOLUTE [facility] - [place] Specimen Blood Performing Organization Address City/State/Zipcode Ph one Number [facility] CLIA# [id number] [place] [address] [place] [address] [place], [place] [address]VD documented in this encounter Visit Diagnoses Diagnosis Type 2 diabetes mellitus without compli cation Seizure Other convulsions documented in this encounter Additional Health Concerns Assessment Noted Time A Hypertension Plan of Care has been documented for t pati patient 02/12/2017 12:54 PM CDT documented as of this encounter
--- OUTSIDE RECORDS SUMMARY | 2020-03-24 14:04 | XMS REPORT | Encounter Summary ---
Author Author [facility] Organization [facility] Address Unknown Phone Unavailable Care Team Providers Care Wind Energy Systems Installer Name Role Phone Claus Couch MD PCP Reason for Visit * Reason Comments Medication Refill Encounter Details Care Team Description Date Type Department Claus Couch MD [address] [place] [address] 02/01/2017 Refill [facility] Primar y Care [place] [address] [place] [address] Social History Date Tobacco Use [...]
--- OUTSIDE RECORDS SUMMARY | 2020-03-24 14:05 | XMS REPORT | Encounter Summary ---
Author Author [facility] Organization [facility] Address Unknown Phone Unavailable Care Team Providers Care Stock Handler Name Role Phone Claus Couch MD PCP Reason for Visit * Reason Comments Medication Refill Encounter Details Care Team Description Date Type Department Claus Couch MD [address] [place] [address] 09/16/2016 Refill [facility] Primar y Care [place] [address] [place] [address] Social History Date Tobacco Use [...]
--- OUTSIDE RECORDS SUMMARY | 2020-03-24 14:05 | XMS REPORT | Encounter Summary ---
Author Author [facility] Organization [facility] Address Unknown Phone Unavailable Care Team Providers Care Director Geothermal Operations Name Role Phone Claus Couch MD PCP Encounter Details Care Team Description Date Type Department Claus Couch MD [address] [place] [id number] 10/19/2016 [facility] Encounter [address] [address] Social History Date Tobacco Use [...] Drop in both eyes 2 times daily. 10/19/2016 07/07/2017 ramipril (ALTACE) 10 mg Take 1 Cap by 90 Capsule 1 capsule mouth daily. 10/19/2016 11/27/2016 phenytoin sodium Take 1 60 Capsule 2 (DILANTIN) 200 mg Capsule Capsule (200 mg) by mouth 2 times daily. 10/02/2016 07/07/2017 bethanechol (URECHOLINE) TAKE ONE [...] BY MOUTH EVERY DAY IN THE EVENING 09/09/2016 12/14/2016 LORazepam (ATIVAN) 1 mg TAKE ONE 60 Tablet 2 tablet TABLET BY MOUTH 2 TIMES A DAY.. 09/07/2016 03/25/2017 isosorbide mononitrate TAKE ONE 60 Tablet 5 (IMDUR) 60 mg Extended TABLET BY Release 24 hour tablet MOUTH 2 TIMES A DAY 09/07/2016 03/25/2017 FLUoxetine (PROzac) 20 mg TAKE 2 60 Capsule 5 capsule CAPSULES BY MOUTH EVERY DAY. 09/07/2016 03/01/2017 loratadine (CLARITIN) 10 Take 1 Tab by 30 Tablet 5 mg tablet mouth daily. 08/06/2016 02/01/2017 clopidogrel (PLAVIX) 75 Take 1 Tab by 30 Tablet 5 mg Tablet mouth daily. 07/31/2016 02/22/2017 temazepam (RESTORIL) 15 Take 1 30 Capsule 5 mg capsule Capsule (15 mg) by mouth nightly as needed for Insomnia. 07/15/2016 12/29/2016 ZETIA 10 mg tablet Take 1 Tab by 30 Tablet 5 mouth daily at bedtime. 06/15/2016 12/14/2016 OLANZapine (ZyPREXA) 2.5 Take 1 Tab by 30 Tablet 5 mg tablet mouth daily at bedtime. 03/02/2016 07/21/2017 traZODone (DESYREL) 50 mg Take 1 Tab by 30 Tablet 3 tablet mouth daily at bedtime.. 11/30/2015 11/27/2016 mupirocin (BACTROBAN) 2 % Apply to 15 Gram 0 OintmentIndications: affected area Cellulitis of finger of 2 times left hand daily. 11/27/2015 07/15/2017 NITROSTAT 0.4 mg Tablet, DISSOLVE 1 25 Tablet 0 Sublingual TABLET UNDER TONGUE EVERY 5 MINUTES NEEDED FOR CHEST PAIN. DO NOT EXCEED 3 DOSES. 10/07/2015 07/07/2017 fluticasone (FLONASE) 50 Administer 2 16 Gram 5 mcg/spray [place], Sprays in Suspension each nostril daily.. 08/16/2015 07/07/2017 PROAIR HFA 90 Take 2 Puffs 8.5 Gram 5 mcg/actuation inhaler by inhalation every 4 hours as needed for Shortness of Breath. 11/27/2016 naproxen sodium 220 mg Take 440 mg 0 Oral Cap by mouth daily . 09/10/2010 04/26/2018 MULTIVITAMIN PO Take 1 Tab by 0 mouth daily with lunch. documented as of this encounter Plan of Treatment Not on filedocumented as of this encounter Procedures Comments Procedure Name Priority Date/Time Associated Diag nosis XR FOOT 3+ VW LEFT Routine 10/19/2016 Closed frac ture of second 10:08 AM ROADABILITY MACHINE OPERATOR toe of left foot, with routine healing, subsequent encounter documented in this encounter Results * XR FOOT 3+ VW LEFT (10/19/2016 10:08 AM ROADABILITY MACHINE OPERATOR) Specimen Impressions Performed At FINDINGS/IMPRESSION: INTERFACE SYSTEM There is diffuse osseous demineralizati on. No change in the appearance of the meta physeal fracture at the second proximal phalanx. There is no dislocation. Stable deformity of the tuft of the fir st toe. Narrative Performed At [facility], oblique and lateral radiographs of the left foot 10/19/2016 10:08 INTERFACE SYSTEM AM HISTORY: 66 years Male presents with cl osed fracture of second toe of left foot, subsequent encounter COMPARISON: 10 October 2016 Procedure Note Interface, Bong Aok Incoming Radiology Results - 10/19/2016 11:46 AM ROADABILITY MACHINE OPERATOR [facility], oblique and lateral radiographs of the left foot 10/19/2016 10:08 AM HISTORY: 66 years Male presents with closed fracture of second toe of left foot, subsequent encounter COMPARISON: 10 October 2016 IMPRESSION FINDINGS/IMPRESSION: There is diffuse osseous demineralization. No change in the appearance of the metaphyseal fracture at the second proximal phalanx. There is no dislocation. Stable deformity of the tuft of the first toe. Performing Organization Address City/State/Zipcode Ph one Number INTERFACE SYSTEM INTERFACE SYSTEM Refer to clinic/hospital department documented in this encounter Visit Diagnoses Diagnosis Closed fracture of second toe of left f oot, with routine healing, subsequent encounter documented in this encounter
--- OUTSIDE RECORDS SUMMARY | 2020-03-24 14:05 | XMS REPORT | Encounter Summary ---
Author Author [facility] Organization [facility] Address Unknown Phone Unavailable Care Team Providers Care Factory Laborer Name Role Phone Claus Couch MD PCP Reason for Visit * Reason Comments Medication Refill Encounter Details Care Team Description Date Type Department Claus Couch MD [address] [place] [address] 09/25/2016 Refill [facility] Primar y Care [place] [address] [place] [address] Social History Date Tobacco Use [...]
--- OUTSIDE RECORDS SUMMARY | 2020-03-24 14:05 | XMS REPORT | Encounter Summary ---
Author Author [facility] Organization [facility] Address Unknown Phone Unavailable Care Team Providers Care Commercial Loan Underwriter Name Role Phone Claus Couch MD PCP Reason for Visit * Reason Comments Follow Up broken toe Encounter Details Care Team Description Date Type Department Claus Couch MD [address] [place] [address] Closed nondisplaced fracture of proximal phalanx of left great toe with routine healing, subsequent encounter (Primary Dx) 11/19/2016 Office Visit [facility] Primar y Care [place] [address] [place] [address] Social History Date Tobacco Use [...] Signs Reading Time Taken Comments Vital Sign 128/70 11/19/2016 9:46 AM HEAD OF HUMAN RESOURCES Blood Pressure - - Pulse - - Temperature - - Respiratory Rate - - Oxygen Saturation - - Inhaled Oxygen Concentration 60.5 kg (133 lb 6.4 oz) 11/19/2016 9:46 AM HEAD OF HUMAN RESOURCES Weight 167.6 cm (5' 6") 11/19/2016 9:46 AM HEAD OF HUMAN RESOURCES Height 21.53 11/19/2016 9:46 AM HEAD OF HUMAN RESOURCES Body Mass Index documented in this encounter Progress Notes * Claus Couch MD - 11/19/2016 3:27 PM HEAD OF HUMAN RESOURCES Oliverio Dalton is a 66 y.o. male History of Present Illness HPI Chief Complaint Patient presents with Follow Up broken toe has been doing better pain has improvied shortness of breath has been better as well Review of Systems Review of [...] gait problem. Negative for back pain. Skin: Negative for color change. Neurological: Negative for dizziness, syncope, facial asymmetry and numbness. Psychiatric/Behavioral: Negative for agitation and behavioral problems. Physical Exam Blood pressure 128/70, height 5' 6" (1.676 m), weight 60.5 kg (133 lb 6.4 oz). Physical Exam Constitutional: He appears well-developed and well-nourished. HENT: Head: Normocephalic and atraumatic. Cardiovascular: Normal rate, regular rhythm, normal heart sounds and intact dist al pulses. Pulmonary/Chest: Effort normal and breath sounds normal. Abdominal: Soft. Bowel sounds are normal. Musculoskeletal: Feet: ASSESSMENT: Encounter Diagnosis Name Primary? Closed nondisplaced fracture of proximal phalanx of left great toe with rout ine healing, subsequent encounter Yes PLAN: Orders Placed This Encounter XR FOOT 3+ VW LEFT Repeat xr continue to monitor OF HUMAN RESOURCES documented in this encounter Plan of Treatment Not on filedocumented as of this encounter Results * XR FOOT 3+ VW LEFT (11/19/2016 10:30 AM HEAD OF HUMAN RESOURCES) Specimen Impressions Performed At Impression: Partial healing transverse fracture proxi mal phalanx of INTERFACE SYSTEM the left second toe. Narrative Performed At Left foot, three views. INTERFACE SYSTEM History: Pain. Fracture. Comparison: 10/19/2016. Transverse fracture of the proximal met aphysis of the proximal phalanx of the second toe. Interval partial hea ling but fracture line still remains visible. Alignment and position ing is satisfactory. Mild arthritic changes of the interphalangea l joints. No evidence of new fracture, dislocation or other signific ant skeletal abnormality. Procedure Note Interface, [facility] Aok Incoming Radiology Results - 11/19/2016 11:22 AM HEAD OF HUMAN RESOURCES Left foot, three views. History: Pain. Fracture. Comparison: 10/19/2016. Transverse fracture of the proximal metaphysis of the proximal phalanx of the second toe. Interval partial healing but fracture line still remains visible. Alignment and positioning is satisfactory. Mild arthritic changes of the interphalangeal joints. No evidence of new fracture, dislocation or other significant skeletal abnormality. IMPRESSION Impression: Partial healing transverse fracture proximal phalanx of the left second toe. Performing Organization Address City/State/Zipcode Ph one Number INTERFACE SYSTEM INTERFACE SYSTEM Refer to clinic/hospital department documented in this encounter Visit Diagnoses Diagnosis Closed nondisplaced fracture of proxima l phalanx of left great toe with routine healing, subsequent encounter - Primary documented in this encounter
--- OUTSIDE RECORDS SUMMARY | 2020-03-24 14:05 | XMS REPORT | Encounter Summary ---
Author Author [facility] Organization [facility] Address Unknown Phone Unavailable Care Team Providers Care Data Reduction Technician Name Role Phone Claus Couch MD PCP Reason for Visit * Reason Comments Medication Refill Encounter Details Care Team Description Date Type Department Claus Cocuh MD [address] [place] [address] 09/04/2016 Refill [facility] Primar y Care [place] [address] [place] [address] Social History Date Tobacco Use [...]
--- OUTSIDE RECORDS SUMMARY | 2020-03-24 14:05 | XMS REPORT | Encounter Summary ---
Author Author [facility] Organization [facility] Address Unknown Phone Unavailable Care Team Providers Care Foster Care Worker Name Role Phone Claus Couch MD PCP Reason for Visit * Reason Comments Follow Up broken toe, Lt foot 2nd toe Encounter Details Care Team Description Date Type Department Claus Couch MD [address] [place] [address] Closed fracture of second toe of left fo ot, with routine healing, subsequent encounter (Primary Dx); Seizure disorder 10/19/2016 Office Visit [facility] Primar y Care [place] [address] [place] [address] Social History Date Tobacco Use [...] Reading Time Taken Comments Vital Sign 128/70 10/19/2016 9:18 AM TOOL FILER HAND Blood Pressure - - Pulse - - Temperature - - Respiratory Rate - - Oxygen Saturation - - Inhaled Oxygen Concentration 133.4 kg (294 lb) 10/19/2016 9:18 AM TOOL FILER HAND Weight 167.6 cm (5' 6") 10/19/2016 9:18 AM TOOL FILER HAND Height 47.45 10/19/2016 9:18 AM TOOL FILER HAND Body Mass Index documented in this encounter Progress Notes * Claus Couch MD - 10/19/2016 9:15 AM TOOL FILER HAND Oliverio Dalton is a 66 y.o. male History of Present Illness HPI Chief Complaint Patient presents with Follow Up broken toe, Lt foot 2nd toe hit foot on bed 2 weeks ago swelling is a little better but still with some darinel n Review of Systems Review of Systems Constitutional: [...] pain. Skin: Negative for color change. Neurological: Positive for seizures (on and off has been increasing in frequency ). Negative for dizziness, syncope, facial asymmetry and numbness. Psychiatric/Behavioral: Negative for agitation and behavioral problems. Physical Exam Blood pressure 128/70, height 5' 6" (1.676 m), weight 133.4 kg (294 lb). Physical Exam Constitutional: He appears well-developed and well-nourished. HENT: Head: Normocephalic and atraumatic. Cardiovascular: Normal rate, regular rhythm, normal heart sounds and intact dist al pulses. Pulmonary/Chest: Effort normal and breath sounds normal. Abdominal: Soft. Bowel sounds are normal. Musculoskeletal: Feet: ASSESSMENT: Encounter Diagnoses Name Primary? Closed fracture of second toe of left foot, with routine healing, subsequent encounter Yes Seizure disorder PLAN: Orders Placed This Encounter XR FOOT 3+ VW LEFT phenytoin sodium (DILANTIN) 200 mg Capsule Increase dilantin to 200 bid will repeat xr foot FILER HAND documented in this encounter Plan of Treatment Not on filedocumented as of this encounter Results * XR FOOT 3+ VW LEFT (10/19/2016 10:08 AM TOOL FILER HAND) Specimen Impressions Performed At FINDINGS/IMPRESSION: INTERFACE SYSTEM [...] Incoming Radiology Results - 10/19/2016 11:46 AM TOOL FILER HAND [facility], oblique and lateral radiographs of the [...] f oot, with routine healing, subsequent encounter - Primary Seizure disorder Unspecified epilepsy without mention of intractable epilepsy documented in this encounter
--- OUTSIDE RECORDS SUMMARY | 2020-03-24 14:05 | XMS REPORT | Encounter Summary ---
Author Author [facility] Organization [facility] Address Unknown Phone Unavailable Care Team Providers Care Solid Waste Technician Name Role Phone Claus Couch MD PCP Reason for Visit * Reason Comments Medication Refill Encounter Details Care Team Description Date Type Department Claus Couch MD [address] [place] [address] 09/09/2016 Refill [facility] Primar y Care [place] [address] [place] [address] Social History Date Tobacco Use [...]
--- OUTSIDE RECORDS SUMMARY | 2020-03-24 14:05 | XMS REPORT | Encounter Summary ---
Author Author [facility] Organization [facility] Address Unknown Phone Unavailable Care Team Providers Care Gifts Officer Name Role Phone Claus Couch MD PCP Reason for Visit * Reason Comments Medication Refill Encounter Details Care Team Description Date Type Department Claus Couch MD [address] [place] [address] 10/02/2016 Refill [facility] [place] [address] [place] [address] Social History Date Tobacco Use [...]
--- OUTSIDE RECORDS SUMMARY | 2020-03-24 14:05 | XMS REPORT | Encounter Summary ---
Author Author [facility] Organization [facility] Address Unknown Phone Unavailable Care Team Providers Care Wire Basket Maker Name Role Phone Claus Couch MD PCP Reason for Visit * Reason Comments Medication Refill Encounter Details Care Team Description Date Type Department Claus Couch MD [address] [place] [address] 09/04/2016 Refill [facility] Prim[facility] [place] [address] [place] [address] Social History Date Tobacco Use [...]
--- OUTSIDE RECORDS SUMMARY | 2020-03-24 14:05 | XMS REPORT | Encounter Summary ---
Author Author [facility] Organization [facility] Address Unknown Phone Unavailable Care Team Providers Care Regional Branch Manager Name Role Phone Claus Couch MD PCP Reason for Visit * Reason Comments Toe Pain Pt complains of pain in his 2nd and 3rd toe on his left foot. Pt reports that he stubbed his toes on something d uring the night last night. Encounter Details Care Team Description Date Type Department Jada Fernanedz MD NO ADDRESS ON FILE Toe hematoma, left, initial encounter (P rimary Dx); Closed displaced fracture of proximal phalanx of lesser toe of left foot, initial encounter 10/10/2016 Emergency [facility] Emergency Department [address] [address] Social History Date Tobacco Use [...] Signs Reading Time Taken Comments Vital Sign 143/76 10/10/2016 8:56 AM KILN TENDER Blood Pressure - - Pulse 34.3 C (93.7 F) 10/10/2016 8:56 AM KILN TENDER Temperature 18 10/10/2016 8:56 AM KILN TENDER Respiratory Rate 100% 10/10/2016 8:56 AM KILN TENDER Oxygen Saturation - - Inhaled Oxygen Concentration 133.4 kg (294 lb) 10/10/2016 8:56 AM KILN TENDER Weight 167.6 cm (5' 6") 10/10/2016 8:56 AM KILN TENDER Height 47.45 10/10/2016 8:56 AM KILN TENDER Body Mass Index documented in this encounter [...] Drop in both eyes 2 times daily. 10/10/2016 10/19/2016 oxyCODONE-acetaminophen Take 1 Tablet 30 Tablet 0 (PERCOCET) 5-325 mg by mouth tablet every 4 hours as needed for Pain, Moderate. Max Daily Amount: 6 Tablet 10/02/2016 07/07/2017 bethanechol (URECHOLINE) TAKE ONE 120 [...] tablet MOUTH 2 TIMES A DAY 09/07/2016 10/19/2016 phenytoin sodium TAKE 2 90 Capsule 5 (DILANTIN) 100 mg CAPSULES BY extended release capsule MOUTH EVERY MORNING AND ONE CAPSULE AT BEDTIME. 09/07/2016 03/25/2017 FLUoxetine (PROzac) 20 mg TAKE [...] 5 mg tablet mouth daily at bedtime. 04/27/2016 10/19/2016 ramipril (ALTACE) 10 mg Take 1 Cap by 90 Capsule 1 capsule mouth daily. 03/02/2016 07/21/2017 traZODone (DESYREL) 50 [...] 50 Administer 2 16 Gram 5 mcg/spray [place], Sprays in Suspension each nostril daily.. 08/16/2015 [...] as of this encounter ED Notes * Kaye Fernandez MD - 10/10/2016 8:28 AM KILN TENDER HISTORY OF PRESENT ILLNESS Oliverio [place], a 66 y.o. male presents to the ED with a Chief Complaint of To e Pain Subjective HPI Comments: Up in the dark in he night and stubbed L great and 2nd toe, pain a nd swelling this morning Toe Pain Associated symptoms: no fever and no neck pain REVIEW OF SYSTEMS Review of Systems Constitutional: Negative for activity change, appetite change, chills, fever and unexpected weight change. HENT: Negative for congestion. Eyes: Negative for visual disturbance. Respiratory: Negative for chest tightness and shortness of breath. Cardiovascular: Negative for chest pain. Gastrointestinal: Negative for abdominal pain. Genitourinary: Negative for difficulty urinating. Musculoskeletal: Positive for arthralgias and gait problem. Negative for neck pa in. Skin: Positive for color change and wound. PAST MEDICAL HISTORY REVIEWED MEDICAL: Patient has [...] pfrmd (02/01/2009); hernia repair (1988); lap cholecystectomy (); coronary artery bypass graft; heart catheterization (04/10); [...] LIST: Patient has Renal stone; Essential hypertension; Hypertrophy of prostate without urinary obstruction and other lower urinary tract symptoms (LUTS); Neurogenic b ladder, NOS; Unspecified glaucoma; Bipolar disorder, unspecified; Hyperlipidemia ; Tubular adenoma; Status post laparoscopic appendectomy; Umbilical hernia witho ut mention of obstruction or gangrene; Bradycardia; Back pain; LFT elevation; Os teoarthritis of right knee; Carpal tunnel syndrome; Diabetes mellitus; CAD (thom nary artery disease); COPD (chronic obstructive pulmonary disease); Seizure diso rder; Depression; Suicidal behavior; Status post colonoscopy; Status post right inguinal hernia repair; Ulcers of both lower legs, limited to breakdown of skin; Cigarette dependence; and Closed displaced fracture of middle phalanx of right little finger on his problem list. ALLERGIES Codeine; Doxycycline; Penicillins; Phenobarbital; Piperacillin-tazobactam; Septr a [sulfamethoxazole-trimethoprim]; Terazosin; and Valium [diazepam] HOME MEDICATIONS Patient's Home Medications Current Home Medications ALBUTEROL IN ASPIRIN EC 81 MG ORAL TBEC BETHANECHOL (URECHOLINE) 25 MG TABLET BETIMOL 0.5 % OP DROP BLOOD SUGAR DIAGNOSTIC (ACCU-CHEK ACTIVE TEST) MISC STRP CLOPIDOGREL (PLAVIX) 75 MG TABLET DEXTROMETHORPHAN-GUAIFENESIN (MUCINEX DM) 30-600 MG TABLET SUSTAINED RELEASE 12 HR ESOMEPRAZOLE (NEXIUM) 40 MG CAPSULE, DELAYED RELEASE(E.C.) FENOFIBRATE NANOCRYSTALLIZED (TRICOR) 145 MG TABLET FLUOXETINE (PROZAC) 20 MG CAPSULE FLUTICASONE (FLONASE) 50 MCG/SPRAY SPRAY, SUSPENSION FLUTICASONE (FLOVENT HFA) 110 MCG/ACTUATION HFA AEROSOL INHALER ISOSORBIDE MONONITRATE (IMDUR) 60 MG EXTENDED RELEASE 24 HOUR TABLET LORATADINE (CLARITIN) 10 MG TABLET LORAZEPAM (ATIVAN) 1 MG TABLET MAGNESIUM OXIDE 250 MG ORAL TAB MULTIVITAMIN PO MUPIROCIN (BACTROBAN) 2 % OINTMENT NAPROXEN SODIUM 220 MG ORAL CAP NITROSTAT 0.4 MG TABLET, SUBLINGUAL OLANZAPINE (ZYPREXA) 2.5 MG TABLET PHENYTOIN SODIUM (DILANTIN) 100 MG EXTENDED RELEASE CAPSULE PIOGLITAZONE (ACTOS) 30 MG TABLET POLYETHYLENE GLYCOL 3350 (MIRALAX) 17 GRAM/DOSE POWDER PROAIR HFA 90 MCG/ACTUATION INHALER RAMIPRIL (ALTACE) 10 MG CAPSULE SIMVASTATIN (ZOCOR) 40 MG TABLET TAMSULOSIN (FLOMAX) 0.4 MG CAPSULE TEMAZEPAM (RESTORIL) 15 MG CAPSULE TRAZODONE (DESYREL) 50 MG TABLET ZETIA 10 MG TABLET Medications Modified during this Encounter Medications Discontinued during this Encounter OXYCODONE-ACETAMINOPHEN (PERCOCET) 5-325 MG TABLET Objective PHYSICAL EXAM INITIAL VS BP: (!) 143/76 (10/10/16855), Heart Rate: 64 bpm (10/10/16855), Resp: 18 (855), Temp: (!) 93.7 F (34.3 C) (10/10/16855), Temp src: Oral (01/21), SpO2: 100 % (10/10/16855), Height: 5' 6" (167.6 cm) (10/10/16 085 6), Weight: 133.4 kg (294 lb) (10/10/16855), BMI (Calculated): 47.55 (10/10/16855) No LMP for male patient. Physical Exam Constitutional: He is oriented to person, place, and time. He appears well-devel oped and well-nourished. HENT: Head: Normocephalic and atraumatic. Right Ear: External ear normal. Left Ear: External ear normal. Mouth/Throat: Oropharynx is clear and moist. Eyes: Conjunctivae and EOM are normal. Pupils are equal, round, and reactive to light. Neck: Normal range of motion. Neck supple. Cardiovascular: Normal rate, regular rhythm, normal heart sounds and intact dist al pulses. Pulmonary/Chest: Effort normal and breath sounds normal. Abdominal: Soft. Bowel sounds are normal. Musculoskeletal: Normal range of motion. He exhibits tenderness (R great and 2nd toe, tender and discolored wit hematoma). Neurological: He is alert and oriented to person, place, and time. Skin: Skin is warm and dry. Nursing note and vitals reviewed. DIAGNOSTICS LAB: Labs this ED Encounter - No data to display RADIOLOGY: XR FOOT 3+ VW LEFT (Results Pending) L proximal 2nd toe fracture, displaced slighthard last shoe, rest, analgesia EKG: PROCEDURES Procedures MEDICAL DECISION MAKING AND PLAN OF CARE MDM ED Course . New Prescriptions for this Encounter OXYCODONE-ACETAMINOPHEN (PERCOCET) 5-325 MG TABLET Take 1 Tablet by mouth ev len 4 hours as needed for Pain, Moderate. Max Daily Amount: 6 Tablet LAST VS BP: (!) 143/76 (10/10/16855), Heart Rate: 64 bpm (10/10/16855), Resp: 18 (855), Temp: (!) 93.7 F (34.3 C) (10/10/16855), Temp src: Oral (01/21), SpO2: 100 % (10/10/16855) CLINICAL IMPRESSION Final diagnoses: [S90.122A] Toe hematoma, left, initial encounter (Primary) [S92.512A] Closed displaced fracture of proximal phalanx of lesser toe of left f oot, initial encounter DISPOSITION, EDUCATION AND MEDICATION RECONCILIATION Medications reconciled. See after visit summary for patient education on discha rged patients. ATTESTATION STATEMENTS Hard last shoe, rest, cold, analgesia, follow up with PCP 10 days TENDER documented in this encounter Plan of Treatment Not on filedocumented as of this encounter Procedures Comments Procedure Name Priority Date/Time Associated Diag nosis XR FOOT 3+ VW LEFT Stat 10/10/2016 9:29 AM KILN TENDER documented in this encounter Results * XR FOOT 3+ VW LEFT (10/10/2016 9:29 AM KILN TENDER) Specimen Narrative Performed At History: Injury. Pain. INTERFACE SYSTEM Three-view left foot: No comparison elva dies. Probable nondisplaced fracture involving the proximal metaphy sis of the second proximal phalanx. No other visualized acute frac tures or dislocations. Deformity of the tuft of the great toe which may be from an old injury. No significant arthritic change s. CONCLUSION: Probable nondisplaced fract ure of the proximal metaphysis of the second proximal phalanx. Procedure Note Interface, [facility] [place], [place] [facility] Incoming Radiology Results - 10/10/2016 9:49 AM KILN TENDER History: Injury. Pain. Three-view left foot: No comparison studies. Probable nondisplaced fracture involving the proximal metaphysis of the second proximal phalanx. No other visualized acute fractures or dislocations. Deformity of the tuft of the great toe which may be from an old injury. No significant arthritic changes. CONCLUSION: Probable nondisplaced fracture of the proximal metaphysis of the second proximal phalanx. Performing Organization Address City/State/Zipcode Ph one Number INTERFACE SYSTEM INTERFACE SYSTEM Refer to clinic/hospital department documented in this encounter Visit Diagnoses Diagnosis Toe hematoma, left, initial encounter - Primary Closed displaced fracture of proximal p halanx of lesser toe of left foot, initial encounter documented in this encounter
--- OUTSIDE RECORDS SUMMARY | 2020-03-24 14:05 | XMS REPORT | Encounter Summary ---
Author Author [facility] Organization [facility] Address Unknown Phone Unavailable Care Team Providers Care Animal Husbandman Name Role Phone Claus Couch MD PCP Encounter Details Care Team Description Date Type Department Claus Couch MD [address] [place] [id number] 11/19/2016 [facility] Encounter [address] [address] Social History Date Tobacco [...] 50 Administer 2 16 Gram 5 mcg/spray [place], Sprays in Suspension each nostril daily.. 08/16/2015 [...] nosis XR FOOT 3+ VW LEFT Routine 11/19/2016 Closed nond isplaced 10:30 AM TRIAL MGR fracture of proximal phalanx of left great toe with routine healing, subsequent encounter documented in this encounter Results * XR FOOT 3+ VW LEFT (11/19/2016 10:30 AM TRIAL MGR) Specimen Impressions Performed At Impression: Partial healing [...] signific ant skeletal abnormality. Procedure Note Interface, [place] [facility] Incoming Radiology Results - 11/19/2016 11:22 AM TRIAL MGR Left foot, three views. History: Pain. Fracture. [...] left second toe. Performing Organization Address City/State/Zipcode one Number INTERFACE SYSTEM INTERFACE SYSTEM Refer to clinic/hospital department documented in this encounter Visit Diagnoses Diagnosis Closed nondisplaced fracture of proxima l phalanx of left great toe with routine healing, subsequent encounter documented in this encounter
--- OUTSIDE RECORDS SUMMARY | 2020-03-24 14:05 | XMS REPORT | Encounter Summary ---
Author Author [facility] Organization [facility] Address Unknown Phone Unavailable Care Team Providers Care Stock Hanger Name Role Phone Claus Couch MD PCP Reason for Visit * Reason Comments Medication Refill Encounter Details Care Team Description Date Type Department Claus Couch MD [address] [place] [address] 10/19/2016 Refill [facility] Primar y Care [place] [address] [place] [address] Social History Date Tobacco Use [...]
--- OUTSIDE RECORDS SUMMARY | 2020-03-24 14:05 | XMS REPORT | Encounter Summary ---
Author Author [facility] Organization [facility] Address Unknown Phone Unavailable Care Team Providers Care Regional Production Manager Name Role Phone Claus Couch MD PCP Reason for Visit * Reason Comments Seizure * Auth/Cert Referred By Contact Referred To Contact Status Reason Specialty Diagnoses / Procedures [facility] Emergency [address] [place] [address] Emergency Medicine Encounter Details Care Team Description Date Type Department Claus Couch MD [address] [place] [address] Seizure 11/26/2016 Emergency [facility] Medical Surgical 11/27/2016 [address] [place] [address] Social History Date Tobacco Use [...] Signs Reading Time Taken Comments Vital Sign 150/80 11/27/2016 8:42 AM WIND [employer] ELECT[employer]ICAL ENGINEER Blood Pressure 73 11/27/2016 8:42 AM WIND [employer]URBINE ELECTRICAL ENGINEER Pulse 35.3 C (95.5 F) 11/27/2016 8:42 AM WIND [employer]URBINE ELECTRICAL ENGINEER Temperature 20 11/27/2016 8:42 AM WIND TURBINE ELECTRICAL ENGINEER Respiratory Rate 97% 11/27/2016 8:42 AM WIND TURBINE ELECTRICAL ENGINEER Oxygen Saturation - - Inhaled Oxygen Concentration 87 kg (191 lb 12.8 oz) 11/26/2016 4:14 PM WIND [employer]URBINE ELECTRICAL ENGINEER Weight 167.6 cm (5' 6") 11/26/2016 4:14 PM WIND [employer]URBINE ELECTRICAL ENGINEER Height 30.96 11/26/2016 4:14 PM WIND [employer]URB[employer] ELECTRICAL ENGINEER Body Mass Index documented in this encounter Discharge Summaries * Claus Couch MD - 11/27/2016 8:04 AM WIND TURBINE ELECTRICAL ENGINEER [facility] Medical Discharge Summary Oliverio Tinsley 66 y.o. male 1950 CSN: [id number] Date of Admission: 11/26/2016 Date of Discharge: 11/27/2016 Discharging Physician: Claus Couch MD PCP: Claus Couch MD LOS: 0 days Code Status at Discharge: Full Code Dispo: Home Labs and studies from this hospitalization needing follow up: CBC and dilantin level in 1 week Follow-up: You must follow up with Claus Couch MD in 1 week Discharge Diagnoses and Relevant Hospital Course: Active Hospital Problems Diagnosis Seizure Resolved Hospital Problems Diagnosis Date Resolved No resolved problems to display. Oliverio Tinsley is a 66 y.o. male who was admitted to [facility] on 11/26/19 17 and found to have a principle diagnosis of seizure has been controlled since . Discharge medications and new prescriptions: Medication List CONTINUE taking these medications Aspirin EC 81 [...] Claus Couch Quantity: 30 Tablet Refills: 5 esomeprazole 40 mg Capsule, Delayed Release(E.C.) Commonly known as: NexIUM Take 1 Cap by mouth daily before breakfast. Signed by: Claus Couch Quantity: 30 Capsule Refills: 5 fenofibrate nanocrystallized 145 mg tablet Commonly known as: TRICOR Take 1 Tab by mouth daily with supper. Signed by: Claus Couch Quantity: 30 Tablet Refills: 5 FLUoxetine 20 mg capsule Commonly known as: PROzac TAKE 2 CAPSULES BY MOUTH EVERY DAY. Signed by: Claus Couch Quantity: 60 Capsule Refills: 5 * fluticasone 50 mcg/spray [place], Suspension Commonly known as: FLONASE Administer 2 Sprays in each nostril daily.. Signed by: Claus Couch Quantity: 16 Gram Refills: 5 * fluticasone 110 mcg/actuation HFA Aerosol Inhaler Commonly known as: FLOVENT HFA Take 1 Puff by inhalation 2 times daily.. Signed by: Claus Couch Quantity: 12 Gram Refills: 5 isosorbide mononitrate 60 mg Extended Release 24 [...] by: Claus Couch Quantity: 60 Tablet Refills: 2 magnesium oxide 250 mg Tablet Take 1 Tab by mouth 3 times daily. Refills: 0 MULTIVITAMIN ORAL Take 1 Tab by mouth daily with lunch. Refills: 0 NITROSTAT 0.4 mg Tablet, Sublingual DISSOLVE 1 TABLET UNDER TONGUE EVERY 5 MINUTES NEEDED FOR CHEST PAIN. DO NOT EXCEED 3 DOSES. Signed by: Claus Couch Quantity: 25 Tablet Refills: PRN Generic drug: nitroglycerin OLANZapine 2.5 mg tablet Commonly known as: ZyPREXA Take 1 Tab by mouth daily at bedtime. Signed by: Gugnani, Claus K. Quantity: 30 Tablet Refills: 5 oxyCODONE-acetaminophen 5-325 mg tablet Commonly known as: PERCOCET Take 1 Tablet by mouth every 4 hours as needed for Pain, Moderate. Max Daily Darrick unt: 6 Tablet Signed by: Kaye Fernandez Quantity: 30 Tablet Refills: None phenytoin 200 mg Capsule Commonly known as: DILANTIN Take 1 Capsule (200 mg) by mouth 2 times daily. Signed by: Claus Couch Quantity: 60 Capsule Refills: 0 pioglitazone 30 mg tablet Commonly known as: ACTOS Take 1 Tab by mouth daily. Signed by: Neyda Redmond Quantity: 90 Tablet Refills: 1 polyethylene glycol 3350 17 gram/dose Powder Commonly known as: MIRALAX Take 1 SCOOP (17 Gram) by mouth daily Dissolve in 8 ounces of fluid and drink en tire liquid. Signed by: Mary Moore Quantity: 527 Gram Refills: 0 PROAIR HFA 90 mcg/Actuation inhaler Take 2 Puffs by inhalation every 4 hours as needed for Shortness of Breath. Signed by: Claus Couch Quantity: 8.5 Gram Refills: 5 Generic drug: albuterol sulfate ramipril 10 mg capsule Commonly known as: ALTACE Take 1 Cap by mouth daily. Signed by: Claus Couch Quantity: 90 Capsule Refills: 1 simvastatin 40 mg tablet Commonly known as: [...] Claus Couch Quantity: 30 Tablet Refills: 3 ZETIA 10 mg tablet Take 1 Tab by mouth daily at bedtime. Signed by: Claus Couch Quantity: 30 Tablet Refills: 5 Generic drug: ezetimibe * Notice: !!Potential duplicate medications found. Review medication list car efshellyy. STOP taking these medications mupirocin 2 % Ointment Commonly known as: BACTROBAN naproxen sodium 220 mg Capsule Where to Get Your Medications Information about where to get these medications is not yet available ! Ask your nurse or doctor about these medications phenytoin 200 mg Capsule Consultants: None Procedures performed: Discharge Lab Data: (Please note date of lab as some may have preceeded admissio n) Recent Labs 11/26/16 1110 WBC 10.8 HGB 14.5 HCT 42.1 PLT 417* NA 137 K 4.7 CL 97* CO2 23 BUN 13 CREAT 0.84 GLUCOSE 117* ALT 17 AST 23 TROPONIN <0.01 INR 1.1* Estimated Creatinine Clearance: 74.1 mL/min (by C-G formula based on Cr of 0.84) . Please refer to hospital course above. Discharge Exam: Visit Vitals BP 115/65 (BP Location: Left arm, Patient Position (BP): Supine) Pulse (!) 56 Temp (!) 96.2 F (35.7 C) (Tympanic) Resp 18 Ht 5' 6" (1.676 m) Wt 87 kg (191 lb 12.8 oz) SpO2 96% BMI 30.96 kg/m2 Last documented weight: Weight: 87 kg (191 lb 12.8 oz) (11/26/16 1614) Physical Exam: General Alert, oriented, no acute [...] lesions Discharge Condition: improving. Activity: activity as tolerated and activity as tolerated. Diet: DIET DIABETIC Wound Care: None needed Primary Emergency Contact: HELLEN VELOZ, Signed: Claus Couch MD This discharge took less than 30 minutes of time to prepare TURBINE ELECTRICAL ENGINEER documented in this encounter Discharge Instructions * Instructions* Christi Dalton RN - 11/27/2016 DISCHARGE DESTINATION: Home DISCHARGE SERVICES: None FOLLOW-UP Follow up with Dr Couch on December 04 @ 11:00am PRESCRIPTIONS: Prescriptions given? yes SIGNS AND SYMPTOMS TO REPORT Contact your health care provider if you experience any of the following symptom s: return of symptoms ACTIVITY Your activity level is: Activity as tolerated. If you smoke you are advised to quit. Ask your health care provider for advice if you need assistance to stop s moking. Avoid second-hand smoke exposure and do not let people smoke in your ho me. You may return to work/school Wednesday, November 30.. DIET Your diet is: diabetic diet WOUND CARE For your wound/incision: Monitor your skin daily for any breakdown. Practice go od foot care. MEDICATIONS Reminders: Please discard any old medication [...] situations ................................................................................ ...................................................... *THANK YOU FOR CHOOSING [facility] Our goal is to provide you with the highest level of care and service. Your fe edback about the positive experience and opportunities for us to better serve yo u is important to us. Patients will be randomly selected for either a phone or e-mail survey. * Phone surveys will be conducted by a non-[facility] employed attendant to patients of [facility] inpatient unit, surgery, emergency department, home health or convenient care. * E-mail surveys will be delivered to [facility] patients and outpatients. .Did you know you don't have to call your doctor's office to ask a question, get your test results, or request an appointment or prescription renewal? You can do all of that and more, 31/05, with [employer]. Send a secure message, pay a bill, check your health records - it's all there on your laptop, tablet, or phone, an ywhere you have Internet access. Learn more or sign up at [email or web address]. .. IMPORTANT EMERGENCY PHONE NUMBERS Poison Control [place] Crisis Hotline- Domestic Violence Suicide Prevention Lifeline * Attachments The following attachments cannot be sent through Care Everywhere.* SEIZURE ([place]) documented in this encounter Medications at Time [...] Drop in both eyes 2 times daily. 11/27/2016 02/15/2017 phenytoin sodium Take 1 60 [...] 50 Administer 2 16 Gram 5 mcg/spray [place], Sprays in Suspension each nostril daily.. 08/16/2015 07/07/2017 PROAIR HFA 90 Take 2 Puffs 8.5 Gram 5 mcg/actuation inhaler by inhalation every 4 hours as needed for Shortness of Breath. 09/10/2010 04/26/2018 MULTIVITAMIN PO Take 1 Tab by 0 mouth daily with lunch. documented as of this encounter H&P Notes * Claus Couch MD - 11/27/2016 8:00 AM WIND TURB[employer] ELECTRICAL ENGINEER Oliverio Tinsley is a 66 y.o. male Was admitted through the er secondary to sei zure the patient had been doing well however he took the wrong dose and seized h as been doing better since then No current facility-administered medications on file prior to encounter. Current Outpatient Prescriptions on File Prior to Encounter Medication Sig Dispense Refill ramipril (ALTACE) 10 mg capsule Take 1 Cap by mouth daily. 90 Capsule 1 phenytoin sodium (DILANTIN) 200 mg Capsule Take 1 Capsule (200 mg) by mouth 2 times daily. 60 Capsule 2 oxyCODONE-acetaminophen (PERCOCET) 5-325 mg tablet Take 1 Tablet by mouth ev len 4 hours as needed for Pain, Moderate. Max Daily Amount: 6 Tablet 30 Tablet N one bethanechol (URECHOLINE) 25 mg tablet TAKE ONE TABLET BY MOUTH FOUR TIMES A DAY 120 Tablet 5 pioglitazone (ACTOS) 30 mg tablet Take 1 Tab by mouth daily. 90 Tablet 1 tamsulosin (FLOMAX) 0.4 mg capsule TAKE ONE CAPSULE BY MOUTH EVERY DAY 30 [place] NUTES AFTER SUPPER 30 Capsule 5 fenofibrate nanocrystallized (TRICOR) 145 mg tablet Take 1 Tab by mouth jono y with supper. 30 Tablet 5 simvastatin (ZOCOR) 40 mg tablet TAKE ONE TABLET (40MG) BY MOUTH EVERY DAY I N THE EVENING 90 Tablet 1 LORazepam (ATIVAN) 1 mg tablet TAKE ONE TABLET BY MOUTH 2 TIMES A DAY.. 60 T ablet 2 isosorbide mononitrate (IMDUR) 60 mg Extended Release 24 hour tablet TAKE ON E TABLET BY MOUTH 2 TIMES A DAY 60 Tablet 5 FLUoxetine (PROzac) 20 mg capsule TAKE 2 CAPSULES BY MOUTH EVERY DAY. 60 Cap j carlos 5 loratadine (CLARITIN) 10 mg tablet Take 1 Tab by mouth daily. 30 Tablet 5 fluticasone (FLOVENT HFA) 110 mcg/actuation HFA Aerosol Inhaler Take 1 Puff by inhalation 2 times daily.. 12 Gram 5 clopidogrel (PLAVIX) 75 mg Tablet Take 1 Tab by mouth daily. 30 Tablet 5 temazepam (RESTORIL) 15 mg capsule Take 1 Capsule (15 mg) by mouth nightly a s needed for Insomnia. 30 Capsule 5 ZETIA 10 mg tablet Take 1 Tab by mouth daily at bedtime. 30 Tablet 5 esomeprazole (NexIUM) 40 mg Capsule, Delayed Release(E.C.) Take 1 Cap by henrik th daily before breakfast. 30 Capsule 5 OLANZapine (ZyPREXA) 2.5 mg tablet Take 1 Tab by mouth daily at bedtime. 30 Tablet 5 traZODone (DESYREL) 50 mg tablet Take 1 Tab by mouth daily at bedtime.. 30 T ablet 3 mupirocin (BACTROBAN) 2 % Ointment Apply to affected area 2 times daily. 15 Gram 0 NITROSTAT 0.4 mg Tablet, Sublingual DISSOLVE 1 TABLET UNDER TONGUE EVERY 5 M INUTES NEEDED FOR CHEST PAIN. DO NOT EXCEED 3 DOSES. 25 Tablet PRN fluticasone (FLONASE) 50 mcg/spray [place], Suspension Administer 2 Sprays in each nostril daily.. 16 Gram 5 PROAIR HFA 90 mcg/actuation inhaler Take 2 Puffs by inhalation every 4 hours as needed for Shortness of Breath. 8.5 Gram 5 polyethylene glycol 3350 (MIRALAX) 17 gram/dose Powder Take 1 SCOOP (17 Gram ) by mouth daily Dissolve in 8 ounces of fluid and drink entire liquid. 527 Gram 0 naproxen sodium 220 mg Oral Cap Take 440 mg by mouth daily . blood sugar diagnostic (ACCU-CHEK ACTIVE TEST) Misc [...] Drop in both eyes 2 times daily. Allergies: Codeine; Doxycycline; Penicillins; Phenobarbital; Piperacillin-tazoba ctam; Septra [sulfamethoxazole-trimethoprim]; Terazosin; and Valium [diazepam] Past Medical History Diagnosis Date Anxiety Asthma Cataract Chronic ischemic heart disease, unspecified Contusion, back 08/16/03 Fall COPD (chronic obstructive pulmonary disease) Coronary artery disease Diabetes Glaucoma Seizure disorder last seizure 2010 Unspecified disease of respiratory system Unspecified disorder of lipoid metabolism Unspecified essential hypertension Wrist sprain 08/10 Rt. Past Surgical History Procedure Laterality Date Hx surgical other 05/2001 4 bypass Hx cataract removal 2000 Hx surgical other 2001 Eyelids shortened Hx surgical other 1999 Toenails removed Hx surgical other 11/2001 PEA with IOL, OU Hx turp 08/2003 Hx surgical other 04/12 Heart stent Hx surgical other 09/12 Stents X5 Hx surgical other 08/14 Stents Psa 09/13 Hx surgical other 07/11 Colonoscopy Pr colonoscopy flx dx w/collj spec when pfrmd 02/01/2009 COLONOSCOPY performed by MARY MOORE at [facility] OR Hx hernia repair 1988 And age 4 Hx lap cholecystectomy 05/17/07 Hx coronary artery bypass graft Hx heart catheterization 04/10 With angioplasty, 2 stents Pr lap,appendectomy 05/28/2012 APPENDECTOMY LAPAROSCOPIC performed by Mary Moore MD at [facility] [place] Pr repair umbilical colleen,4+y/o,reduc 05/28/2012 HERNIA UMBILICAL REPAIR performed by Mary Moore MD at [facility] OR Pr colonoscopy flx dx w/collj spec when pfrmd 12/28/2013 COLONOSCOPY performed by aMry Moore MD at [facility] [place] Hx hernia inguinal repair Right 03/08/2015 HERNIA INGUINAL REPAIR performed by Mary Moore MD at [facility] OR Family History Problem Relation Age of Onset Other Mother Blood pressure Diabetes Mother Respiratory Disease Mother Asthma Mother Other Sister Blood pressure Diabetes Sister Respiratory Disease Sister Heart Disease Sister Asthma Sister Lung Cancer Brother Seizures Brother Other Father "brain anuerysm" Healthy Daughter Heart Disease Son Healthy Daughter Healthy Daughter Healthy Son Healthy Son Healthy Son Healthy Son Social History Substance Use Topics Smoking status: Current Every Day Smoker Packs/day: 1.00 Years: 40.00 Types: Cigarettes Last attempt to quit: 03/08/1995 Smokeless tobacco: Never Used Comment: Restarted smoking cigarettes 1 pack every two weeks since 05/2013. Alcohol use No Constitutional: denies fevers, chills, sweats, fatigue, malaise, anorexia, weigh t loss Eye: denies visual disturbance, discharge, pain Ear, Nose, Mouth, Throat: denies hearing loss, ear issues, nasal congestion, ne ck mass, oral issues, hoarse voice Respiratory: denies cough, dyspnea, stridor, wheeze Cardiovascular: denies chest pain, exertional chest pressure/discomfort, fatig ue, nausea, syncope, shortness of breath Gastrointestinal: denies abdominal pain, change in bowel habits, constipation, diarrhea, dsyphagia, reflux symptoms, vomiting Genitourinary: denies dysuria, frequency, incontinence, urgency Integementary, Breast: denies skin lesion(s), color change, lumps, masses, disch arge, tenderness Hematologic, Oncologic, Lymphatic: denies: bruising, bleeding, lymphadenopathy, petechiae Musculoskeletal: denies: myalgia, arthralgia, stiff joints, neck pain, back pain , muscle weakness Neurological: denies blurry or disturbed vision, gait problems, dizziness, diff iculty swallowing, muscle weakness, difficulty saying words, development appropr iate for age Behavior, Psychologic: denies aggressive or problematic behavior, anxiety, mood issues, substance use, learning difficulty, unusual fears Endocrine: denies sudden changes in mood, temperature intolerance, polyuria, jenniffer ydipsia, skin changes Allergy: denies hives, swelling of extremities, issues with food, episodic purit is, chronic rhinitis, recurrent cough, seasonal issues OBJECTIVE: Physical Exam: Visit Vitals BP 115/65 (BP Location: Left arm, Patient Position (BP): Supine) Pulse (!) 56 Temp (!) 96.2 F (35.7 C) (Tympanic) Resp 18 Ht 5' 6" (1.676 m) Wt 87 kg (191 lb 12.8 oz) SpO2 96% BMI 30.96 kg/m2 General appearance: alert, in no distress [...] normal tone Lab Results Component Value Date/Time WBC 10.8 11/26/2016 11:10 AM HEMOGLOBIN 14.5 11/26/2016 11:10 AM HEMATOCRIT 42.1 11/26/2016 11:10 AM PLATELETS 417 (H) 11/26/2016 11:10 AM MCV 87.8 11/26/2016 11:10 AM Lab Results Component Value Date/Time SODIUM 137 11/26/2016 11:10 AM POTASSIUM 4.7 11/26/2016 11:10 AM CHLORIDE 97 (L) 11/26/2016 11:10 AM CO2 23 11/26/2016 11:10 AM CALCIUM 9.1 11/26/2016 11:10 AM BUN 13 11/26/2016 11:10 AM CREATININE 0.84 11/26/2016 11:10 AM GLUCOSE 117 (H) 11/26/2016 11:10 AM TOTAL PROTEIN 6.8 11/26/2016 11:10 AM ALBUMIN 4.4 11/26/2016 11:10 AM BILIRUBIN TOTAL 0.4 11/26/2016 11:10 AM ALKALINE PHOSPHATASE 58 11/26/2016 11:10 AM AST 23 11/26/2016 11:10 AM ALT 17 11/26/2016 11:10 AM ANION GAP 17 11/26/2016 11:10 AM BUN/CREAT RATIO 19.8 12/02/2012 09:43 PM ASSESSMENT: Active Problems: Seizure PLAN: See orders the patient is able to ambulate well will dc home with follow up 1 week [employer]UR[employer] ELECTRICAL ENGINEER documented in this encounter Procedure Notes * David Ferrer MD - 11/27/2016 9:07 AM WIND TURBINE ELECTRICAL ENGINEER Associated Order(s): EKG 12-LEAD [address] [place], [place] [address] Patient Name: OLIVERIO TINSLEY CSN: [id number] : 1950 Provider: David Bernard M.D. Admitted: 11/26/2016 ELECTROCARDIOGRAM DATE OF SERVICE: 11/26/2016 11/26/2016 at 1129. The rhythm is regular, sinus in origin with a rate of 68 beat s per minute. There is left axis deviation. Complexes are of low voltage across the limb leads. Minimal R waves are noted through V3 across the chest. T waves a re flattened to inverted across the tracing. Compared with previous tracing date d September 04 2016, electrical axis has shifted further leftward currently. MADHU GNOSIS: 1) Sinus rhythm, rate 68 beats per minute. 2) Left axis deviation. 3) Lo w voltage limb lead. 4) Nonspecific T wave changes. 5) Possible old anterior wal l myocardial infarct. Dictated by: David Bernard M.D./MEDQ D: [id number] V: [id number] cc: Claus Couch M.D. TUR[employer] ELECTRICAL ENGINEER documented in this encounter ED Notes * Macy Vaughn NP - 11/26/2016 11:18 AM WIND TURBINE ELECTRICAL ENGINEER HISTORY OF PRESENT ILLNESS Oliverio Tinsley, a 66 y.o. male presents to the ED with a Chief Complaint of Se izure Subjective HPI Comments: Brought by EMS after he was found having a seizure by his caregive r. Pt has a hx of seizures, takes dilantin. He states that he is supposed to joaquín e 200mg twice daily. He is concerned that he has been taking only 100mg BID, pr obably since October when he had a refill on his meds and was told the bottle c ontained 200 mg capsules and so he has been taking only 1 tab BID. The bottle is labeled as 100mg capsules. 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 He states that he has had a cough, denies fever, abd pain, vomit ing or diarrhea. He is normally ambulatory with a walker and daily morning careg iver. History provided by: The patient Arrived by: EMS Arrived from: Home Seizure REVIEW OF SYSTEMS Review of Systems Constitutional: Negative for appetite change, chills, fatigue and fever. HENT: Negative for congestion, postnasal drip, sore throat and trouble swallowin g. Eyes: Negative for photophobia and visual disturbance. Respiratory: Positive for cough. Negative for shortness of breath and wheezing. Cardiovascular: Negative for chest pain and palpitations. Gastrointestinal: Negative for abdominal pain, nausea and vomiting. Genitourinary: Negative for decreased urine volume and dysuria. Musculoskeletal: Negative for arthralgias and myalgias. Skin: Negative for pallor and rash. Neurological: Positive for seizures, facial asymmetry, speech difficulty and hea daches. Hematological: Does not bruise/bleed easily. Psychiatric/Behavioral: Negative for confusion and sleep disturbance. PAST MEDICAL HISTORY REVIEWED MEDICAL: [...] TABLET OXYCODONE-ACETAMINOPHEN (PERCOCET) 5-325 MG TABLET PHENYTOIN SODIUM (DILANTIN) 200 MG CAPSULE PIOGLITAZONE (ACTOS) 30 MG TABLET POLYETHYLENE [...] Objective PHYSICAL EXAM INITIAL VS BP: (!) 149/107 (11/26/161117), Heart Rate: 71 bpm (11/26/161117), Resp: 22 (0 11/26/161117), Temp: 98.4 F (36.9 C) (11/26/161117), Temp src: Oral (1117), SpO2: 100 % (11/26/161117), Height: 5' 8" (172.7 cm) (11/26/161117), Weight: 77.1 kg (170 lb) (11/26/161117), BMI (Calculated): 25.85 (11/26/16) No LMP for male patient. Physical Exam Constitutional: He is oriented to person, place, and time. Chronically ill appearing male in no respiratory distress HENT: Mouth/Throat: Mucous membranes are dry. No posterior oropharyngeal erythema. Right facial droop Eyes: Conjunctivae and EOM are normal. Pupils are equal, round, and reactive to light. Neck: Normal range of motion. No JVD present. Cardiovascular: Normal rate, regular rhythm and normal heart sounds. Pulmonary/Chest: Effort normal. He has rales. Abdominal: Soft. Bowel sounds are normal. There is no tenderness. Musculoskeletal: Normal range of motion. He exhibits no edema. Lymphadenopathy: He has no cervical adenopathy. Neurological: He is alert and oriented to person, place, and time. Coordination abnormal. Right arm weaker than left, able to hold it up but shakes Skin: Skin is warm and dry. Psychiatric: He has a normal mood and affect. His behavior is normal. DIAGNOSTICS LAB: Labs this ED Encounter CBC WITH DIFFERENTIAL - Abnormal Result Value PLATELETS 417 (*) MPV 7.2 (*) WBC 10.8 RBC 4.79 HEMOGLOBIN 14.5 HEMATOCRIT 42.1 MCV 87.8 MCH 30.3 MCHC 34.5 RDW 13.8 NEUTROPHILS 65 LYMPHOCYTES 28 MONOCYTES 5 EOSINOPHILS 1 BASOPHILS 1 NEUTROPHIL ABSOLUTE 7.00 LYMPHOCYTE ABSOLUTE 3.09 MONOCYTE ABSOLUTE 0.57 EOSINOPHIL ABSOLUTE 0.12 BASOPHILS ABSOLUTE 0.05 PROTIME-INR - Abnormal PROTIME 11.8 (*) INR 1.1 (*) COMPREHENSIVE METABOLIC PANEL - Abnormal CHLORIDE 97 (*) GLUCOSE 117 (*) SODIUM 137 POTASSIUM 4.7 CO2 23 CALCIUM 9.1 BUN 13 CREATININE 0.84 TOTAL PROTEIN 6.8 ALBUMIN 4.4 BILIRUBIN TOTAL 0.4 ALKALINE PHOSPHATASE 58 AST 23 ALT 17 GFR >60 GFR, >60 ANION GAP 17 PHENYTOIN LEVEL, TOTAL - Abnormal PHENYTOIN TOTAL 6.0 (*) TROPONIN - Normal TROPONIN T <0.01 URINALYSIS WITH REFLEX CULTURE RADIOLOGY: XR CHEST PA OR AP Radiologist Impression Impression: 1. Status post CABG. 2. No active cardiopulmonary disease. CT HEAD WO CONTRAST (Results Pending) EKG: PROCEDURES Procedures MEDICAL DECISION MAKING AND PLAN OF CARE MDM Pt still having some seizure activity on arrival, noted by EMT but not seizing u kiran my exam Treated with ativan IV Speech is slurred with weakness on the right side, has some problems with this a t baseline but worse than normal, discussed with Dr Landrum, will check CT Pt has not been taking correct dose of dilantin. Plan overnight observation, resume correct dose of dilantin - given 100mg po in ED ED Course Medications Administered During the ED Stay from 11/26/2016 1118 to 11/26/2016 1 352 Date/Time Order Dose Route Action 11/26/2016 1132 sodium chloride 0.9 % flush injection 10 mL 10 mL IV Given 11/26/2016 1131 LORazepam (ATIVAN) 2 mg/mL injection 1 mg 1 mg IV Given . New Prescriptions for this Encounter LAST VS BP: (!) 149/107 (11/26/16 111), Heart Rate: 71 bpm (11/26/161117), Resp: 22 (0 11/26/161117), Temp: 98.4 F (36.9 C) (11/26/161117), Temp src: Oral (1117), SpO2: 100 % (11/26/161117) CLINICAL IMPRESSION Final diagnoses: [G40.909] Seizure disorder [R78.89] Subtherapeutic serum dilantin level [R56.9] Seizure (Primary) DISPOSITION, EDUCATION AND MEDICATION RECONCILIATION Medications reconciled. See after visit summary for patient education on discha rged patients. ATTESTATION STATEMENTS TURBINE ELECTRICAL ENGINEER documented in this encounter Miscellaneous Notes * Care Plan - Keshia Jacobs, PRIYA - 11/27/2016 6:53 AM WIND TURBINE ELECTRICAL ENGINEER Pt's. Speech is much clearer this morning. Pt. Is alert and oriented this a.m., very talkative, sitting on side of bed. Pt. Denies pain or dizziness. Pt. Sle pt at long intervals during the night. TURBINE ELECTRICAL ENGINEER documented in this encounter Plan of Treatment Not on filedocumented as of this encounter Procedures Comments Procedure Name Priority Date/Time Associated Diag nosis EKG 12-LEAD Stat 11/27/2016 10:45 AM WIND TURBINE ELECTRICAL ENGINEER POC GLUCOSE Routine 11/27/2016 6:37 AM WIND TURBINE ELECTRICAL ENGINEER POC GLUCOSE Routine 11/26/2016 11:22 PM WIND TURBINE ELECTRICAL ENGINEER POC GLUCOSE Routine 11/26/2016 5:03 PM WIND TURBINE ELECTRICAL ENGINEER CT HEAD WO CONTRAST Stat 11/26/2016 1:56 PM WIND TURBINE ELECTRICAL ENGINEER XR CHEST PA OR AP 1 VW Stat 11/26/2016 11:36 AM WIND TURBINE ELECTRICAL ENGINEER OXYGEN VIA DEVICE TO KEEP Stat 11/26/2016 O2 SAT ABOVE 11:20 AM WIND TURBINE ELECTRICAL ENGINEER PULSE OXIMETRY, Stat 11/26/2016 CONTINUOUS 11:20 AM WIND TURBINE ELECTRICAL ENGINEER CBC WITH DIFFERENTIAL Stat 11/26/2016 11:10 AM WIND TURBINE ELECTRICAL ENGINEER PROTIME-INR Stat 11/26/2016 11:10 AM WIND TURBINE ELECTRICAL ENGINEER TROPONIN Stat 11/26/2016 11:10 AM WIND TURBINE ELECTRICAL ENGINEER HEMOGLOBIN A1C Routine 11/26/2016 11:10 AM WIND TURBINE ELECTRICAL ENGINEER PHENYTOIN LEVEL, TOTAL Stat 11/26/2016 11:10 AM WIND TURBINE ELECTRICAL ENGINEER COMPREHENSIVE METABOLIC Stat 11/26/2016 PANEL 11:10 AM WIND TURBINE ELECTRICAL ENGINEER documented in this encounter Results * EKG 12-LEAD (11/27/2016 10:45 AM WIND TURBINE ELECTRICAL ENGINEER) Narrative Performed At This result has an attachment that is n ot available. Procedure Note David Bernard MD - 11/27/2016 9:07 AM WIND TURBINE ELECTRICAL ENGINEER [address] [place] [address] Patient Name: OLIVERIO TINSLEY CSN: [id number] : 1950 Provider: David Bernard M.D. Admitted: 11/26/2016 ELECTROCARDIOGRAM DATE OF SERVICE: 11/26/2016 11/26/2016 at 1129. The rhythm is regular , sinus in origin with a rate of 68 beats per minute. There is left axis deviation. Complexes are of low voltage across the limb leads. Minimal R waves are noted through V3 across the chest. T waves are flattened to inverted across the tracing. Compared with previous tracing dated September 04 2016, electrical axis has shifted further leftward currently. DIAGNOSIS: 1) Sinus rhythm, rate 68 beats per minute. 2) Left axis deviation. 3) Low voltage limb lead. 4) Nonspecific T wave changes. 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 Dictated by: David Bernard M.D./MEDQ D: [id number] V: [id number] cc: Claus Couch M.D. * POC GLUCOSE (11/27/2016 6:37 AM WIND TURBINE ELECTRICAL ENGINEER) POC GLUCOSE 140 (H) 70 - 100 mg/dL [facility] Specimen Whole blood sample (specimen) Performing Organization Address [facility] CLIA# [id number] [place] [address] - [address] * POC GLUCOSE (11/26/2016 11:22 PM WIND TURBINE ELECTRICAL ENGINEER) POC GLUCOSE 122 (H) 70 - 100 mg/dL [facility] [place] Specimen Whole blood sample (specimen) Performing Organization Address [facility] CLIA# [id number] [place] [address] [address] * POC GLUCOSE (11/26/2016 5:03 PM WIND TURBINE ELECTRICAL ENGINEER) POC GLUCOSE 104 (H) 70 - 100 mg/dL [facility] Specimen Whole blood sample (specimen) Performing Organization Address [facility] CLIA# [id number] [place] [address] [address] * CT HEAD WO CONTRAST (11/26/2016 1:56 PM WIND TURBINE ELECTRICAL ENGINEER) Specimen Impressions Performed At Impression: No evidence of acute intracranial abnorma lity. INTERFACE SYSTEM Narrative Performed At CT head, unenhanced. INTERFACE SYSTEM History: Seizure, Seizure disorder, Sub therapeutic serum dilantin level,Seizures. Comparison: 09/04/2016. Axial images were obtained from the bas e of the skull to the vertex. Image quality is satisfactory. Cerebral cortical sulci and ventricular size appropriate for age. Garcia white matter is distinct without sulci effacement. Brainstem and cerebellum within normal limits. Vascul ar calcification present. No evidence of acute infarction, hemorr teodora, mass, midline shift or extra axial fluid collection. No signif icant interval change. No extracranial soft tissue swelling. Calvarium is intact. Sinuses visualized are clear. Mastoids are wi thin normal limits. Orbits are normal for age. [facility] Incoming Radiology Results - 11/26/2016 2:09 PM WIND TURBINE ELECTRICAL [employer]INEER CT head, unenhanced. History: Seizure, Seizure disorder, Subtherapeutic serum dilantin level,Seizures. Comparison: 09/04/2016. Axial images were obtained from the base of the skull to the vertex. Image quality is satisfactory. Cerebral cortical sulci and ventricular size appropriate for age. Garcia white matter is distinct without sulci effacement. Brainstem and cerebellum within normal limits. Vascular calcification present. No evidence of acute infarction, hemorrhage, mass, midline shift or extra axial fluid collection. No significant interval change. No extracranial soft tissue swelling. Calvarium is intact. Sinuses visualized are clear. Mastoids are within normal limits. Orbits are normal for age. IMPRESSION Impression: No evidence of acute intracranial abnormality. Performing Organization Address [facility] one Number INTERFACE SYSTEM INTERFACE SYSTEM Refer to clinic/hospital department * XR CHEST PA OR AP (11/26/2016 11:36 AM WIND TURBINE ELECTRICAL ENGINEER) Specimen Impressions Performed At Impression: INTERFACE SYSTEM 1. Status post CABG. 2. No active cardiopulmonary disease. Narrative Performed At Chest, AP portable INTERFACE SYSTEM History: Cough and Congestion. Comparison: 09/04/2016. Status post CABG. Heart size, pulmonary vascularity and mediastinum are normal. Trachea midline. Diana within normal limits. Lungs are clear. Skeletal structures are within n ormal limits for the patient's age. No significant interval change. [facility] Note [facility] Incoming Radiology Results - 11/26/2016 11:47 AM WIND TURBINE ELECTRICAL ENGINEER Chest, AP portable History: Cough and Congestion. Comparison: 09/04/2016. Status post CABG. Heart size, pulmonary vascularity and mediastinum are normal. Trachea midline. Diana within normal limits. Lungs are clear. Skeletal structures are within normal limits for the patient's age. No significant interval change. IMPRESSION Impression: 1. Status post CABG. 2. No active cardiopulmonary disease. Performing Organization Address [facility] one Number INTERFACE SYSTEM INTERFACE SYSTEM Refer to clinic/hospital department * HEMOGLOBIN A1C (11/26/2016 11:10 AM WIND TURBINE ELECTRICAL ENGINEER) HEMOGLOBIN A1C 5.9 4.8 - 5.9 % [facility] [place] EST. AVG 123 mg/dL [facility] GLUCOSE, A1C LABORATORY SERVICES - [place] Specimen Blood Performing Organization Address [facility] one [facility] LABORATORY SERVICES CLIA# [id number] [place] [address] - [facility] [place] [address] [place] [address] * PHENYTOIN LEVEL, TOTAL (11/26/2016 11:10 AM WIND TURBINE ELECTRICAL ENGINEER) Pathologist [facility] PHENYTOIN TOTAL 6.0 (L) 10.0 - 20.0 ug/mL [facility] - [facility] [place] Specimen Blood Performing Organization Address [facility] one Number [facility] CLIA# [id number] [place] [address] [facility] [place] [address] [place] [address] * TROPONIN (11/26/2016 11:10 AM WIND TURBINE ELECTRICAL ENGINEER) Pathologist [facility] TROPONIN T <0.01 <0.01 ng/mL [facility] - [place] Specimen Blood Performing Organization Address [facility] LABORATORY SERVICES CLIA# [id number] [place] [address] * COMPREHENSIVE METABOLIC PANEL (11/26/2016 11:10 AM WIND TURBINE ELECTRICAL ENGINEER) [facility] SODIUM 137 136 - 145 mmol/L [facility] [place] POTASSIUM 4.7 3.5 - 5.1 mmol/L [facility] - [place] CHLORIDE 97 (L) 98 - 107 mmol/L [facility] [place] CO2 23 22 - 29 mmol/L [facility] [place] CALCIUM 9.1 8.8 - 10.2 mg/dL [facility] [place] BUN 13 8 - 23 mg/dL [facility] [place] CREATININE 0.84 0.67 - 1.17 mg/dL [facility] [place] GLUCOSE 117 (H) 70 - 100 mg/dL [facility] [place] TOTAL PROTEIN 6.8 6.6 - 8.7 g/dL [facility] [place] ALBUMIN 4.4 3.5 - 5.2 g/dL [facility] [place] BILIRUBIN TOTAL 0.4 <=1.2 mg/dL [facility] [place] ALKALINE 58 40 - 129 U/L [facility] [place] AST 23 <=41 U/L [facility] [place] ALT 17 10 - 50 U/L [facility] [place] GFR >60 >=60 mL/min/1.73 sq [facility] Comment: meter LABORATORY eGFR has not been validated [facility] for use in the elderly (> [...] result. GFR, >60 >=60 mL/min/1.73 sq [facility] meter [facility] - [place] ANION GAP 17 4 - 20 mmol/L [facility] - [place] Specimen Blood Performing Organization Address [facility] one Number [facility] CLIA# [id number] [place] [address] [place] [address] * PROTIME-INR (11/26/2016 11:10 AM WIND TURBINE ELECTRICAL ENGINEER) PROTIME 11.8 (H) 9.6 - 11.0 Seconds [facility] [place] INR 1.1 (L) 2.0 - 3.0 [facility] [place] Specimen Blood Performing Organization Address [facility] one Number [facility] CLIA# [id number] [place] [address] - [facility] [place] [address] [place] [address] * CBC WITH DIFFERENTIAL (11/26/2016 11:10 AM WIND TURBINE ELECTRICAL ENGINEER) WBC 10.8 2.9 - 11.0 K/uL [facility] [place] RBC 4.79 4.15 - 6.03 M/uL [facility] [place] HEMOGLOBIN 14.5 13.8 - 17.4 g/dL [facility] [place] HEMATOCRIT 42.1 38.6 - 54.6 % [facility] [place] MCV 87.8 82.4 - 103.2 fL [facility] [place] MCH 30.3 26.2 - 32.6 pg [facility] [place] MCHC 34.5 30.2 - 35.0 g/dL [facility] [place] RDW 13.8 11.5 - 13.9 % [facility] [place] PLATELETS 417 (H) 137 - 410 K/uL [facility] [place] MPV 7.2 (L) 7.4 - 11.9 fL [facility] [place] NEUTROPHILS 65 43 - 73 % [facility] [place] LYMPHOCYTES 28 19 - 47 % [facility] [place] MONOCYTES 5 3 - 9 % [facility] [place] EOSINOPHILS 1 0 - 6 % [facility] [place] BASOPHILS 1 0 - 1 % [facility] [place] NEUTROPHIL 7.00 1.30 - 7.60 K/uL [facility]UTE [facility] [place] LYMPHOCYTE 3.09 0.60 - 4.90 K/uL [facility] [place] MONOCYTE 0.57 0.10 - 0.90 K/uL [facility] [place] EOSINOPHIL 0.12 0.00 - 0.40 K/uL [facility] [place] BASOPHILS 0.05 0.00 - 0.10 K/uL [facility] [place] Specimen Blood Performing Organization Address City/State/Zipcode Ph one Number [facility] CLIA# [id number] [place] [address] - [place] [address] [place] [address] documented in this encounter Visit Diagnoses Diagnosis Seizure - Primary Other convulsions Seizure disorder Unspecified epilepsy without mention of intractable epilepsy Subtherapeutic serum dilantin level Other abnormal blood chemistry documented in this encounter Administered Medications Action Date Dose Rate Site Medication Order MAR Action 11/27/2016 6:34 AM WIND TURBINE ELECTRICAL ENGINEER 25 mg bethanechol (URECHOLINE) tablet 25 mg Given 25 mg, Oral, FOUR TIMES DAILY BEFORE MEALS AND AT BEDTIME, First dose on Nancy 11/26/16 at 1630, Until Discontinued, Routine, Previous Med: bethanechol (URECHOLINE) 25 mg tablet - Orig Sig - TAKE ONE TABLET BY MOUTH FOUR TIMES A DAY , 25 mg Given 11/26/2016 11:05 PM WIND TURBINE ELECTRICAL ENGINEER 25 mg Given 11/26/2016 5:04 PM WIND TURBINE ELECTRICAL ENGINEER 11/26/2016 5:04 PM WIND TURBINE ELECTRICAL ENGINEER 75 mg clopidogrel (PLAVIX) tablet 75 mg Given 75 mg, Oral, DAILY, First dose on Wed11/26/16 at 1615, Until Discontinued, Routine, Previous Med: clopidogrel (PLAVIX) 75 mg Tablet - Orig Sig - Take 1 Tab by mouth daily. , 11/26/2016 2:42 PM WIND TURBINE ELECTRICAL ENGINEER 40 mg Abdomina l Tissue enoxaparin (LOVENOX) injection 40 mg Given 40 mg, subCUT, EVERY 24 HOURS, First dose on Wed11/26/16 at 1500, Until Discontinued, Routine 11/27/2016 6:34 AM WIND TURBINE ELECTRICAL ENGINEER 40 mg esomeprazole (NexIUM) capsule 40 mg Given 40 mg, Oral, DAILY BEFORE BREAKFAST, First dose on Wed11/27/16 at 0630, Unti l Discontinued, Routine, Previous Med: esomeprazole (NexIUM) 40 mg Capsule, Delayed Release(E.C.) - Orig Sig - Take 1 Cap by mouth daily before breakfast. , 11/26/2016 11:06 PM WIND TURBINE ELECTRICAL ENGINEER 10 mg ezetimibe (ZETIA) tablet 10 mg Given 10 mg, Oral, DAILY AT BEDTIME, First dose on Wed11/26/16 at 2100, Until Discontinued, Routine, Previous Med: ZETIA 10 mg tablet - Orig Sig - Take 1 Tab by mouth daily at bedtime. , 11/26/2016 11:31 AM WIND TURBINE ELECTRICAL ENGINEER 1 mg LORazepam (ATIVAN) 2 mg/mL injection 1 Given mg 1 mg, IV, ONE TIME ONLY, 1 dose, Nancy 11/26/16 at 1130, Routine 11/26/2016 11:08 PM WIND TURBINE ELECTRICAL ENGINEER 1 mg LORazepam (ATIVAN) tablet 1 mg Given 1 mg, Oral, TWO TIMES DAILY, First dose on Wed11/26/16 at 2100, Until Discontinued, Routine, Previous Med: LORazepam (ATIVAN) 1 mg tablet - Orig Sig - TAKE ONE TABLET BY MOUTH 2 TIMES A DAY.. , 11/26/2016 11:08 PM WIND TURBINE ELECTRICAL ENGINEER 2.5 mg OLANZapine (ZyPREXA) tablet 2.5 mg Given 2.5 mg, Oral, DAILY AT BEDTIME, First dose on Wed11/26/16 at 2100, Until Discontinued, Routine, Previous Med: OLANZapine (ZyPREXA) 2.5 mg tablet - Orig Sig - Take 1 Tab by mouth daily at bedtime. , 11/26/2016 2:09 PM WIND TURBINE ELECTRICAL ENGINEER 100 mg phenytoin sodium (DILANTIN) extended Given release capsule 100 mg 100 mg, Oral, ONE TIME ONLY, 1 dose, 11/26/16 at 1345, Routine 11/26/2016 11:09 PM WIND TURBINE ELECTRICAL ENGINEER 200 mg phenytoin sodium (DILANTIN) extended Given release capsule 200 mg 200 mg, Oral, TWO TIMES DAILY, First dose on Wed11/26/16 at 2100, Until Discontinued, Routine, Previous Med: phenytoin sodium (DILANTIN) 200 mg Capsule - Orig Sig - Take 1 Capsule (20 0 mg) by mouth 2 times daily. , 11/27/2016 9:19 AM WIND TURBINE ELECTRICAL ENGINEER 0.5 mL Deltoid, Left Pneumococcal 23 vaccine PPSV (PNEUMOVAX Given 23) 25 mcg/0.5 mL vaccine injection 0.5 mL 0.5 mL, IM, ONE TIME ONLY, 1 dose, Wed11/27/16 at 0900, Routine 11/26/2016 5:04 PM WIND TURBINE ELECTRICAL ENGINEER 10 mg ramipril (ALTACE) capsule 10 mg Given 10 mg, Oral, DAILY, First dose on Wed11/26/16 at 1615, Until Discontinued, Routine, Previous Med: ramipril (ALTACE ) 10 mg capsule - Orig Sig - Take 1 Cap b y mouth daily. , 11/26/2016 11:09 PM WIND TURBINE ELECTRICAL ENGINEER 40 mg simvastatin (ZOCOR) tablet 40 mg Given 40 mg, Oral, DAILY AT BEDTIME, First dose on Wed11/26/16 at 2100, Until Discontinued, Routine, Previous Med: simvastatin (ZOCOR) 40 mg tablet - Orig Sig - TAKE ONE TABLET (40MG) BY MOUTH EVERY DAY IN THE EVENING , 11/26/2016 11:32 AM WIND TURBINE ELECTRICAL ENGINEER 10 mL sodium chloride 0.9 % flush injection 10 Given mL 10 mL, IV, SEE ADMIN INSTRUCTIONS, Starting Wed11/26/16 at 1119, Until Wed11/27/16 at 1504, Routine 11/26/2016 9:00 PM WIND TURBINE ELECTRICAL ENGINEER 1 Drop timolol (TIMOPTIC) 0.5 % ophthalmic Given solution 1 Drop 1 Drop, Both Eyes, TWO TIMES DAILY, First dose on Wed11/26/16 at 2100, Unti l Discontinued, Routine, Previous Med: BETIMOL 0.5 % OP Drop - Orig Sig - Administer 1 Drop in both eyes 2 times daily. , documented in this encounter
--- OUTSIDE RECORDS SUMMARY | 2020-03-24 14:06 | XMS REPORT | Encounter Summary ---
Author Author [facility] Organization [facility] Address Unknown Phone Unavailable Care Team Providers Care Humidifier Attendant Name Role Phone Claus Couch MD PCP Encounter Details Care Team Description Date Type Department Claus Couch MD [address] [place] [address] Serum potassium elevated (Primary Dx) 07/14/2016 Orders Only [facility] Primar y Care [place] [address] [place] [address] Social History Date Tobacco Use [...] as of this encounter Visit Diagnoses Diagnosis Serum potassium elevated - Primary Hyperpotassemia documented in this encounter
--- OUTSIDE RECORDS SUMMARY | 2020-03-24 14:06 | XMS REPORT | Encounter Summary ---
Author Author [facility] Organization [facility] Address Unknown Phone Unavailable Care Team Providers Care Editorial Project Manager Name Role Phone Claus Couch MD PCP Reason for Visit * Reason Comments Follow Up 6 months,labs Encounter Details Care Team Description Date Type Department Claus Couch MD [address] [place] [address] Type 2 diabetes mellitus without complic ation (Primary Dx); Seizure disorder; Needs flu shot; Chronic bronchitis, unspecified chronic bronchitis type 07/31/2016 Office Visit [facility] Primar y Care [place] [address] [place] [address] Social History Date Tobacco Use [...] Reading Time Taken Comments Vital Sign 120/70 07/31/2016 9:01 AM CDT Blood Pressure - - Pulse 36.4 C (97.5 F) 07/31/2016 9:01 AM CDT Temperature - - Respiratory Rate - - Oxygen Saturation - - Inhaled Oxygen Concentration 89.4 kg (197 lb) 07/31/2016 9:01 AM CDT Weight 167.6 cm (5' 6") 07/31/2016 9:01 AM CDT Height 31.8 07/31/2016 9:01 AM CDT Body Mass Index documented in this encounter Patient Instructions * Patient Instructions* Claus Couch MD - 07/31/2016 9:32 AM CDT Hospital Encounter on 07/31/16 (from the past 168 hour(s)) CBC WITH DIFFERENTIAL Collection Time: 07/31/16 8:24 AM Result Value Ref Range WBC 8.5 2.9-11.0 K/uL RBC 4.77 4.15-6.03 M/uL HEMOGLOBIN 14.4 13.8-17.4 g/dL HEMATOCRIT 41.1 38.6-54.6 % MCV 86.1 82.4-103.2 fL MCH 30.2 26.2-32.6 pg MCHC 35.1 (H) 30.2-35.0 g/dL RDW 13.9 11.5-13.9 % PLATELETS 351 137-410 K/uL MPV 7.3 (L) 7.4-11.9 fL NEUTROPHILS 67 43-73 % LYMPHOCYTES 25 19-47 % MONOCYTES 6 3-9 % EOSINOPHILS 2 0-6 % BASOPHILS 0 0-1 % NEUTROPHIL ABSOLUTE 5.70 1.30-7.60 K/uL LYMPHOCYTE ABSOLUTE 2.16 0.60-4.90 K/uL MONOCYTE ABSOLUTE 0.52 0.10-0.90 K/uL EOSINOPHIL ABSOLUTE 0.13 0.00-0.40 K/uL BASOPHILS ABSOLUTE 0.02 0.00-0.10 K/uL LIPID PANEL Collection Time: 07/31/16 8:24 AM Result Value Ref Range CHOLESTEROL 176 <200 mg/dL TRIGLYCERIDE 316 (H) <150 mg/dL HDL 47 40-59 mg/dL LDL CALCULATED 66 <100 mg/dL NON-HDL CHOLESTEROL 129 <130 mg/dL Narrative TOTAL CHOLESTEROL mg/dL Desirable [...] Panels (NCEP/AMA) COMPREHENSIVE METABOLIC PANEL Collection Time: 07/31/16 8:24 AM Result Value Ref Range SODIUM 133 (L) 136-145 mmol/L POTASSIUM 4.2 3.5-5.1 mmol/L CHLORIDE 94 (L) 98-107 mmol/L CO2 22 22-29 mmol/L CALCIUM 9.0 8.8-10.2 mg/dL BUN 15 8-23 mg/dL CREATININE 0.75 0.67-1.17 mg/dL GLUCOSE 149 (H) 70-100 mg/dL TOTAL PROTEIN 7.0 6.6-8.7 g/dL ALBUMIN 4.3 3.5-5.2 g/dL BILIRUBIN TOTAL 0.4 <=1.2 mg/dL ALKALINE PHOSPHATASE 52 40-129 U/L AST 16 <=41 U/L ALT 13 10-50 U/L GFR >60 >=60 mL/min/1.73 sq meter GFR, >60 >=60 mL/min/1.73 sq meter ANION GAP 17 4-20 mmol/L HEMOGLOBIN A1C Collection Time: 07/31/16 8:24 AM Result Value Ref Range HEMOGLOBIN A1C 6.1 (H) 4.8-5.9 % EST. AVG GLUCOSE, A1C 128 mg/dL *Note: Due to a large number of results and/or encounters for the requested time period, some results have not been displayed. A complete set of results can be found in Results Review. documented in this encounter Progress Notes * Claus Couch MD - 07/31/2016 12:53 PM CDT Oliverio Dalton is a 65 y.o. male comes in today for a [...] the above mentioned OBJECTIVE: Physical Exam: BP 120/70 mmHg | Temp(Src) 97.5 F (36.4 C) (Tympanic) | Ht 5' 6" (1.676 m) | Wt 89.359 kg (197 lb) | BMI 31.81 kg/m2 General appearance: alert, in no distress [...] tone Lab Results Component Value Date/Time SODIUM 133* 07/31/2016 08:24 AM POTASSIUM 4.2 07/31/2016 08:24 AM CHLORIDE 94* 07/31/2016 08:24 AM CO2 22 07/31/2016 08:24 AM CALCIUM 9.0 07/31/2016 08:24 AM BUN 15 07/31/2016 08:24 AM CREATININE 0.75 07/31/2016 08:24 AM GLUCOSE 149* 07/31/2016 08:24 AM TOTAL PROTEIN 7.0 07/31/2016 08:24 AM ALBUMIN 4.3 07/31/2016 08:24 AM BILIRUBIN TOTAL 0.4 07/31/2016 08:24 AM ALKALINE PHOSPHATASE 52 07/31/2016 08:24 AM AST 16 07/31/2016 08:24 AM ALT 13 07/31/2016 08:24 AM ANION GAP 17 07/31/2016 08:24 AM BUN/CREAT RATIO 19.8 12/02/2012 09:43 PM CHOLESTEROL 176 07/31/2016 08:24 AM HDL 47 07/31/2016 08:24 AM LDL CALCULATED 66 07/31/2016 08:24 AM LDL CHOLESTEROL, DIRECT 125 12/10/2011 09:05 AM TRIGLYCERIDE 316* 07/31/2016 08:24 AM HEMOGLOBIN A1C 6.1* 07/31/2016 08:24 AM TSH 1.69 10/01/2006 05:40 AM ASSESSMENT: Encounter Diagnoses Name Primary? Type 2 diabetes mellitus without complication Yes Seizure disorder Needs flu shot Chronic bronchitis, unspecified chronic bronchitis type PLAN: Orders Placed This Encounter INFLUENZA VACCINE HIGH DOSE 65+ YRS IM (ADULT) CBC WITH DIFFERENTIAL (6 MONTHS X 1) LIPID PANEL (6 MONTHS X 1) CMP (6 MONTHS X 1) HEMOGLOBIN A1C (6 MONTHS X 1) MICROALBUMIN/CREATININE RATIO, RANDOM UR (6 MONTHS X 1) temazepam (RESTORIL) 15 mg capsule follow up in 6 months current treatment plan is effective, no change in therapy reviewed medications and side effects in detail test results reviewed with patient and repeat labs ordered prior to next appoint ment reviewed diet, exercise and weight control cardiovascular risk and specific lipid/LDL goals reviewed. documented in this encounter Plan of Treatment Not on filedocumented as of this encounter Results * MICROALBUMIN/CREATININE RATIO, RANDOM UR (02/12/2017 7:58 AM CDT) MICROALBUMIN, <1.2 No Reference Range [facility] URINE mg/dL [facility] [place] CREATININE, 27.7 (L) 40.0 - 278.0 mg/dL [facility] URINE Comment: LABORATORY Reference Range varies with [facility] fluid intake and diet. [place] Specimen Urine - Urine specimen obtained by clean catch procedure (specimen) Narrative Performed At Condition Microalbumin/Creat ratio [facility] LABORATORY S ERVICES - [place] Normal Males <17 [place] Normal Females <25 Microalbuminuria Males 17-299 Microalbuminuria Females 25-299 Overt proteinuria >=300 Unable to calculate urine microalbumin/ creatinine ratio due to below linear urine microalbumin result. Performing Organization Address City/State/Zipcode Ph one Number [facility] LABORATORY SERVICES CLIA# [id number] [place] [address] [place] [address] [place] [address] * HEMOGLOBIN A1C (02/12/2017 7:58 AM CDT) HEMOGLOBIN A1C 6.2 (H) 4.8 - 5.9 % [facility] [place] EST. AVG 131 mg/dL [facility] GLUCOSE, A1C [facility] [place] Specimen Blood Performing Organization Address City/State/Zipcode Ph one Number [facility] LABORATORY SERVICES CLIA# [id number] [place] [address] - [place] [address] [facility] * COMPREHENSIVE METABOLIC PANEL (02/12/2017 7:58 AM CDT) [facility] SODIUM 138 136 - 145 mmol/L [...] meter LABORATORY eGFR has not been validated [facility] for use in the elderly (> [...] GFR result. GFR, >60 >=60 mL/min/1.73 sq [facility] [place] ANION GAP 15 4 - 20 mmol/L [facility] LABORATORY SERVICES - [place] Specimen Blood Performing Organization Address [facility] one Raza [facility]OR[facility]ORY SERVICES CLIA# [id number] [place] [address] [place] [address] [place] [address] BLVD * LIPID PANEL (02/12/2017 7:58 AM CDT) CHOLESTEROL 159 <200 mg/dL [facility] - [place] TRIGLYCERIDE 106 <150 mg/dL [facility] - [place] HDL 64 (H) 40 - 59 mg/dL [facility] [place] LDL CALCULATED 74 <100 mg/dL [facility] - [place] NON-HDL 95 <130 mg/dL [facility] CHOLESTEROL [facility] - [place] Specimen Blood Narrative Performed At TOTAL CHOLESTEROL mg/dL [facility] LABORATORY Desirable <200 SERVICES - [facility] Borderline high 200-239 [place] High >=240 [...] for Lipid Panels (NCEP/AMA) Performing Organization Address City/[facility] Ph one Raza [facility] LABORATORY [facility] CLIA# [id number] [place] [address] - [facility] [place] [address] [place] [address] BLVD * CBC WITH DIFFERENTIAL (02/12/2017 7:58 AM CDT) WBC 7.3 3.6 - 11.1 K/uL [facility] - [place] RBC 4.95 4.49 - 5.52 M/uL [facility] [place] HEMOGLOBIN 14.5 13.3 - 16.5 g/dL [facility] LABORATORY SERVICES - [facility] [place] HEMATOCRIT 41.9 40.7 - 48.9 % [facility] - [place] MCV 84.6 82.7 - 97.1 fL [facility] LABORATORY SERVICES - [facility] [place] MCH 29.3 27.1 - 32.3 pg [facility] [place] MCHC 34.6 31.3 - 34.9 g/dL [facility] [place] RDW 13.7 11.5 - 14.7 % [facility] [place] RDW-STDEV 42.5 37.2 - 47.6 fL [facility] [place] PLATELETS 302 136 - 352 K/uL [facility] [place] MPV 7.8 (L) 8.6 - 11.8 fL [facility] [place] NEUTROPHILS 64 [...] Ph one Number [facility] CLIA# [id number] [place] [address] [place] [address] [place] [address] documented in this encounter Visit Diagnoses Diagnosis Type 2 diabetes mellitus without compli cation - Primary Seizure disorder Unspecified epilepsy without mention of intractable epilepsy Needs flu shot Need for prophylactic vaccination and i noculation against influenza Chronic bronchitis, unspecified chronic bronchitis type documented in this encounter
--- OUTSIDE RECORDS SUMMARY | 2020-03-24 14:06 | XMS REPORT | Encounter Summary ---
Author Author [facility] Organization [facility] Address Unknown Phone Unavailable Care Team Providers Care Digital Sales Planner Name Role Phone Claus Couch MD PCP Encounter Details Care Team Description Date Type Department Junior Beal MD [address] [place] [address] Ftsc, Outpt Lab 07/14/2016 [facility] Outpatient Encounter Laboratory [address] [address] Social History Date Tobacco Use [...] Date End Date Medication Sig Dispensed Refills 03/08/2015 polyethylene glycol 3350 Take 1 SCOOP 527 Gram 0 (MIRALAX) 17 gram/dose (17 Gram) by Powder mouth daily Dissolve in 8 ounces of fluid and drink entire liquid. 08/30/2012 blood sugar diagnostic In the am & 1 Package 0 (ACCU-CHEK ACTIVE TEST) pm prn Misc Strp 12/29/2007 BETIMOL 0.5 % OP Drop Administer 1 0 Drop in both eyes 2 times daily. 06/15/2016 12/14/2016 OLANZapine (ZyPREXA) 2.5 Take 1 Tab by 30 Tablet 5 mg tablet mouth daily at bedtime. 06/15/2016 09/09/2016 LORazepam (ATIVAN) 1 mg TAKE ONE 60 Tablet 2 tablet TABLET BY MOUTH 2 TIMES A DAY.. 06/01/2016 10/02/2016 bethanechol (URECHOLINE) TAKE ONE 120 Tablet 3 25 mg tablet TABLET BY MOUTH FOUR TIMES A DAY 06/01/2016 07/30/2016 temazepam (RESTORIL) 15 Take 1 30 Capsule 2 mg capsule Capsule (15 mg) by mouth nightly as needed for Insomnia. 04/27/2016 10/19/2016 ramipril (ALTACE) 10 mg Take 1 Cap by 90 Capsule 1 capsule mouth daily. 04/07/2016 10/02/2016 pioglitazone (ACTOS) 30 Take 1 Tab by 90 Tablet 1 mg tablet mouth daily. 03/30/2016 09/25/2016 tamsulosin (FLOMAX) 0.4 TAKE ONE 30 Capsule 5 mg capsule CAPSULE BY MOUTH EVERY DAY 30 MINUTES AFTER SUPPER 03/23/2016 09/16/2016 simvastatin (ZOCOR) 40 mg TAKE ONE 90 Tablet 1 tablet TABLET (40MG) BY MOUTH EVERY DAY IN THE EVENING 03/23/2016 09/16/2016 fenofibrate Take 1 Tab by 30 Tablet 5 nanocrystallized (TRICOR) mouth daily 145 mg tablet with supper. 03/10/2016 09/04/2016 FLUoxetine (PROZAC) 20 mg TAKE 2 60 Capsule 5 capsule CAPSULES BY MOUTH EVERY DAY. 03/10/2016 09/04/2016 phenytoin sodium TAKE 2 90 Capsule 5 (DILANTIN) 100 mg CAPSULES BY extended release capsule MOUTH EVERY MORNING AND ONE CAPSULE AT BEDTIME. 03/05/2016 09/04/2016 isosorbide mononitrate TAKE ONE 60 Tablet 5 (IMDUR) 60 mg Extended TABLET BY Release 24 hour tablet MOUTH 2 TIMES A DAY 03/02/2016 07/21/2017 traZODone (DESYREL) 50 mg Take 1 Tab by 30 Tablet 3 tablet mouth daily at bedtime.. 02/24/2016 09/04/2016 loratadine (CLARITIN) 10 Take 1 Tab by 30 Tablet 5 mg tablet mouth daily. 02/03/2016 08/06/2016 clopidogrel (PLAVIX) 75 Take 1 Tab by 30 Tablet 5 mg Tablet mouth daily. 01/14/2016 07/15/2016 NEXIUM 40 mg Capsule, Take 1 Cap by 30 Capsule 5 Delayed Release(E.C.) mouth daily before breakfast. 01/06/2016 07/15/2016 ZETIA 10 mg tablet Take 1 Tab by 30 Tablet 5 mouth daily at bedtime. 11/30/2015 11/27/2016 mupirocin (BACTROBAN) 2 % Apply to 15 Gram 0 OintmentIndications: affected area Cellulitis of finger of 2 times left hand daily. 11/27/2015 07/15/2017 NITROSTAT 0.4 mg Tablet, DISSOLVE 1 25 Tablet 0 Sublingual TABLET UNDER TONGUE EVERY 5 MINUTES NEEDED FOR CHEST PAIN. DO NOT EXCEED 3 DOSES. 10/07/2015 07/07/2017 fluticasone (FLONASE) 50 Administer 2 16 Gram 5 mcg/spray [place], Sprays in Suspension each nostril daily.. 2015 10/10/2016 oxyCODONE-acetaminophen Take 1 Tablet 60 Tablet 0 (PERCOCET) 5-325 mg by mouth tablet every 4 hours as needed for Pain, Break-Through . Max Daily Amount: 6 Tablet 08/16/2015 09/04/2016 FLOVENT HFA 110 Take 1 Puff 12 Gram 5 mcg/actuation HFA Aerosol by inhalation Inhaler 2 times daily. 08/16/2015 07/07/2017 PROAIR HFA 90 Take 2 [...] Associated Diag nosis CBC WITH DIFFERENTIAL Routine 07/14/2016 Dizzines s 2:56 PM CDT HEMOGLOBIN A1C Routine 07/14/2016 Type 2 diabetes mellitus 2:56 PM CDT without complication COMPREHENSIVE METABOLIC Routine 07/14/2016 Dizzin ess PANEL 2:56 PM CDT documented in this encounter Results * HEMOGLOBIN A1C (07/14/2016 2:56 PM CDT) HEMOGLOBIN A1C 6.2 (H) 4.8 - 5.9 % [facility] [place] EST. AVG 131 mg/dL [facility] GLUCOSE, A1C LAB[facility]ATORY SERVICES - [place] Specimen Blood Performing Organization Address City/State/[facility] Ph one Number [facility]ORY SERVICES CLIA# [id number] [place] [address] [place] [address] [facility] * COMPREHENSIVE METABOLIC PANEL (07/14/2016 2:56 PM CDT) SODIUM 137 136 - 145 mmol/L [facility] [place] POTASSIUM 5.2 (H) 3.5 - 5.1 mmol/L [facility] [place] CHLORIDE 97 (L) 98 - 107 mmol/L [facility] [place] CO2 27 22 - 29 mmol/L [facility] [place] CALCIUM 9.3 8.8 - 10.2 mg/dL [facility] - [facility] [place] BUN 15 8 - 23 mg/dL [facility] [place] CREATININE 0.90 0.67 - 1.17 mg/dL [facility] [place] GLUCOSE 112 (H) 70 - 100 mg/dL [facility] [place] TOTAL PROTEIN 7.0 6.6 - 8.7 g/dL [facility] [place] ALBUMIN 4.2 3.5 - 5.2 g/dL [facility] [place] BILIRUBIN TOTAL 0.2 <=1.2 mg/dL [facility] [place] ALKALINE 56 40 - 129 U/L [facility] PHOSPHATASE [facility] [place] AST 17 <=41 U/L [facility] [place] ALT 15 10 - 50 U/L [facility] [place] GFR >60 >=60 mL/min/1.73 sq [facility] Comment: meter LABORATORY eGFR has not been validated [facility] for use in the elderly (> [...] result. GFR, >60 >=60 mL/min/1.73 sq [facility] meter [facility] [place] ANION GAP 13 4 - 20 mmol/L [facility] [place] Specimen Blood Performing Organization Address City/State/[facility] Ph one Number [facility] CLIA# [id number] [place] [address] - [place] [address] * CBC WITH DIFFERENTIAL (07/14/2016 2:56 PM CDT) WBC 8.2 2.9 - 11.0 K/uL [facility] [place] RBC 4.70 4.15 - 6.03 M/uL [facility] [place] HEMOGLOBIN 13.8 13.8 - 17.4 g/dL [facility] [place] HEMATOCRIT 41.0 38.6 - 54.6 % [facility] [place] MCV 87.3 82.4 - 103.2 fL [facility] [place] MCH 29.3 26.2 - 32.6 pg [facility] [place] MCHC 33.6 30.2 - 35.0 g/dL [facility] [place] RDW 14.1 (H) 11.5 - 13.9 % [facility] [place] PLATELETS 372 137 - 410 K/uL [facility] [place] MPV 7.6 7.4 - 11.9 fL [facility] [place] NEUTROPHILS 64 43 - 73 % [facility] [place] LYMPHOCYTES 29 19 - 47 % [facility] [place] MONOCYTES 6 3 - 9 % [facility] [place] EOSINOPHILS 2 0 - 6 % [facility] [place] BASOPHILS 0 0 - 1 % [facility] [place] NEUTROPHIL 5.21 1.30 - 7.60 K/uL [facility]UTE [facility] [place] LYMPHOCYTE 2.37 0.60 - 4.90 K/uL [facility] [place] MONOCYTE 0.46 0.10 - 0.90 K/uL [facility] [place] EOSINOPHIL 0.15 0.00 - 0.40 K/uL [facility] [place] BASOPHILS 0.02 0.00 - 0.10 K/uL [facility] [place] Specimen Blood Performing Organization Address City/State/Zipcode Ph one Number [facility] CLIA# [id number] [place] [address] [place] [address] [facility] documented in this encounter Visit Diagnoses Diagnosis Dizziness Dizziness and giddiness Type 2 diabetes mellitus without compli cation documented in this encounter
--- OUTSIDE RECORDS SUMMARY | 2020-03-24 14:06 | XMS REPORT | Encounter Summary ---
Author Author [facility] Organization [facility] Address Unknown Phone Unavailable Care Team Providers Care [employer] Senior Sergeant Name Role Phone Claus Couch MD PCP Reason for Referral * Outpatient Services (Routine) Referred By Contact Referred To Contact Status Reason Specialty Diagnoses / Procedures Junior Beal MD [address] [place] [address] Closed Diagnoses Near syncope P rocedures US CAROTID DOPPLER Reason for Visit * Outpatient Services (Routine) Referred By Contact Referred To Contact Status Reason Specialty Diagnoses / Procedures Junior Beal MD [address] [place] [address] Closed Diagnoses Near syncope P rocedures US CAROTID DOPPLER Encounter Details Care Team Description Date Type Department Junior Beal MD [address] [place] [address] 07/17/2016 [facility] En[facility] [address] [place] [address] Social History Date Tobacco Use [...] Drop in both eyes 2 times daily. 07/15/2016 12/29/2016 ZETIA 10 mg tablet Take [...] 30 Tablet 5 mg Tablet mouth daily. 11/30/2015 11/27/2016 mupirocin (BACTROBAN) 2 % Apply to 15 Gram 0 OintmentIndications: affected area Cellulitis of finger of 2 times left hand daily. 11/27/2015 07/15/2017 NITROSTAT 0.4 mg Tablet, DISSOLVE 1 25 Tablet 0 Sublingual TABLET UNDER TONGUE EVERY 5 MINUTES NEEDED FOR CHEST PAIN. DO NOT EXCEED 3 DOSES. 10/07/2015 07/07/2017 fluticasone (FLONASE) 50 Administer 2 16 Gram 5 mcg/spray [place], Sprays in Suspension each nostril daily.. 2015 [...] Procedure Name Priority Date/Time Associated Diag nosis US CAROTID DOPPLER Routine 07/17/2016 Near syncop e 10:19 AM CDT documented in this encounter Results * US CAROTID DOPPLER (07/17/2016 10:19 AM CDT) Specimen Impressions Performed At IMPRESSION: INTERFACE SYSTEM No significant stenosis in the carotid arteries as detailed above ( less than 50%). NASCET angiographic criteria used to de termine percent stenosis. Electronically Signed By: Erick harding MD, Signed On: 07/17/2016 11:12 AM Narrative Performed At RADIOLOGIC EXAM: BILATERAL CAROTID DUPLEX INTERFACE SYSTEM INDICATION: Near-syncope. Syncope with collapse. TIA. Initial in caliber.. Doppler Measurements (centimeters per s econd): RIGHT: Peak CCA-67, Peak ECA-86, Diastolic ICA -16, Peak ICA-57, ICA/CCA Ratio-less than 2 LEFT: Peak CCA-76, Peak ECA-87, Diastolic ICA -19, Peak ICA-65, ICA/CCA Ratio-less than 2 RIGHT CAROTID: There is mild plaque in the carotid bulb. No significant stenosis in the internal carotid, external carotid, or common carotid art len. LEFT CAROTID: There is mild plaque in t he carotid bulb. No significant stenosis in the internal carotid, external carotid, or common carotid art len. Antegrade flow in the vertebral arterie s. Procedure Note Interface, [facility] Incoming Radiology Results - 07/17/2016 11:16 AM CDT RADIOLOGIC EXAM: BILATERAL CAROTID DUPLEX INDICATION: Near-syncope. Syncope with collapse. TIA. Initial in caliber.. Doppler Measurements (centimeters per second): RIGHT: Peak CCA-67, Peak ECA-86, Diastolic ICA-16, Peak ICA-57, ICA/CCA Ratio-less than 2 LEFT: Peak CCA-76, Peak ECA-87, Diastolic ICA-19, Peak ICA-65, ICA/CCA Ratio-less than 2 RIGHT CAROTID: There is mild plaque in the carotid bulb. No significant stenosis in the internal carotid, external carotid, or common carotid artery. LEFT CAROTID: There is mild plaque in the carotid bulb. No significant stenosis in the internal carotid, external carotid, or common carotid artery. Antegrade flow in the vertebral arteries. IMPRESSION IMPRESSION: No significant stenosis in the carotid arteries as detailed above ( less than 50%). NASCET angiographic criteria used to determine percent stenosis. Electronically Signed By: Erick Smith MD, Signed On: 07/17/2016 11:12 AM Performing Organization Address City/State/Zipcode Ph one Number INTERFACE SYSTEM INTERFACE SYSTEM Refer to clinic/hospital department documented in this encounter Visit Diagnoses Diagnosis Near syncope Syncope and collapse documented in this encounter
--- OUTSIDE RECORDS SUMMARY | 2020-03-24 14:06 | XMS REPORT | Encounter Summary ---
Author Author [facility] Organization [facility] Address Unknown Phone Unavailable Care Team Providers Care Concrete Conveyor Operator Name Role Phone Claus Couch MD PCP Encounter Details Care Team Description Date Type Department Claus Couch MD [address] [place] [address] [facility] 07[facility]31[facility]2016 [facility] Outpatient Encounter Laboratory [address] [address] Social History Date Tobacco [...] Drop in both eyes 2 times daily. 07/31/2016 02/22/2017 temazepam (RESTORIL) 15 Take [...] TABLET BY MOUTH FOUR TIMES A DAY 04/27/2016 10/19/2016 ramipril (ALTACE) 10 mg Take [...] 50 Administer 2 16 Gram 5 mcg/spray [place], Sprays in Suspension each nostril daily.. 2015 [...] Associated Diag nosis CBC WITH DIFFERENTIAL Stat 07/31/2016 Type 2 d iabetes mellitus 8:24 AM CDT without complication HEMOGLOBIN A1C Stat 07/31/2016 Type 2 diabetes mellitus 8:24 AM CDT without complication LIPID PANEL Stat 07/31/2016 Type 2 diabetes mellitus 8:24 AM CDT without complication COMPREHENSIVE METABOLIC Stat 07/31/2016 Type 2 diabetes mellitus PANEL 8:24 AM CDT without complicatio n documented in this encounter Results * HEMOGLOBIN A1C (07/31/2016 8:24 AM CDT) HEMOGLOBIN A1C 6.1 (H) 4.8 - 5.9 % [facility] [place] EST. AVG 128 mg/dL [facility] GLUCOSE, A1C [facility] [place] Specimen Blood Performing Organization Address City/State/Zipcode Ph one Number [facility] CLIA# [id number] [place] [address] - [place] [address] [facility] * COMPREHENSIVE METABOLIC PANEL (07/31/2016 8:24 AM CDT) SODIUM 133 (L) 136 - 145 mmol/L [facility] [place] POTASSIUM 4.2 3.5 - 5.1 mmol/L [facility] [place] CHLORIDE 94 (L) 98 - 107 mmol/L [facility] [place] CO2 22 22 - 29 mmol/L [facility] [place] CALCIUM 9.0 8.8 - 10.2 mg/dL [facility] [place] BUN 15 8 - 23 mg/dL [facility] [place] CREATININE 0.75 0.67 - 1.17 mg/dL [facility] [place] GLUCOSE 149 (H) 70 - 100 mg/dL [facility] [place] TOTAL PROTEIN 7.0 6.6 - 8.7 g/dL [facility] [place] ALBUMIN 4.3 3.5 - 5.2 g/dL [facility] [place] BILIRUBIN TOTAL 0.4 <=1.2 mg/dL [facility] [place] ALKALINE 52 40 - 129 U/L [facility] [place] AST 16 <=41 U/L [facility] [place] ALT 13 10 - 50 U/L [facility] [place] GFR >60 >=60 mL/min/1.[address] [facility] Comment: meter LABORATORY eGFR has not been validated SERVICES [facility] for use in the elderly (> 70 [...] result. GFR, >60 >=60 mL/min/1.[address] [facility] [place] [facility] [place] ANION GAP 17 4 - 20 mmol/L [facility] - [place] Specimen Blood Performing Organization Address [facility] [place] [facility] CLIA# [id number] [place] [address] [address] * LIPID PANEL (07/31/2016 8:24 AM CDT) CHOLESTEROL 176 <200 mg/dL [facility] [place] TRIGLYCERIDE 316 (H) <150 mg/dL [facility] [place] HDL 47 40 - 59 mg/dL [facility] [place] LDL CALCULATED 66 <100 mg/dL [facility] [place] NON-HDL 129 <130 mg/dL [facility] CHOLESTEROL [facility] [place] Specimen Blood Narrative Performed At TOTAL CHOLESTEROL mg/dL [facility] LABORATORY Desirable <200 SERVICES - [facility] Borderline high 200-239 [place] High >=240 [...] for Lipid Panels (NCEP/AMA) Performing Organization Address [facility] [place] [facility] CLIA# [id number] [place], [place] [address] [address] * CBC WITH DIFFERENTIAL (07/31/2016 8:24 AM CDT) WBC 8.5 2.9 - 11.0 K/uL [facility] [place] RBC 4.77 4.15 - 6.03 M/uL [facility] [place] HEMOGLOBIN 14.4 13.8 - 17.4 g/dL [facility] [place] HEMATOCRIT 41.1 38.6 - 54.6 % [facility] [place] MCV 86.1 82.4 - 103.2 fL [facility] [place] MCH 30.2 26.2 - 32.6 pg [facility] [place] MCHC 35.1 (H) 30.2 - 35.0 g/dL [facility] [place] RDW 13.9 11.5 - 13.9 % [facility] [place] PLATELETS 351 137 - 410 K/uL [facility] [place] MPV 7.3 (L) 7.4 - 11.9 fL [facility] [place] NEUTROPHILS 67 43 - 73 % [facility] [place] LYMPHOCYTES 25 19 - 47 % [facility] [place] MONOCYTES 6 3 - 9 % [facility] [place] EOSINOPHILS 2 0 - 6 % [facility] [place] BASOPHILS 0 0 - 1 % [facility] [place] NEUTROPHIL 5.70 1.30 - 7.60 K/uL [facility] [place] LYMPHOCYTE 2.16 0.60 - 4.90 K/uL [facility] [place] MONOCYTE 0.52 0.10 - 0.90 K/uL [facility] [place] EOSINOPHIL 0.13 0.00 - 0.40 K/uL [facility] [place] BASOPHILS 0.02 0.00 - 0.10 K/uL [facility] [place] Specimen Blood Performing Organization Address City/State/Zipcode Ph one Number [facility] CLIA# [id number] [place] [address] [place] [address] [facility] documented in this encounter Visit Diagnoses Diagnosis Type 2 diabetes mellitus without compli cation documented in this encounter
--- OUTSIDE RECORDS SUMMARY | 2020-03-24 14:06 | XMS REPORT | Encounter Summary ---
Author Author [facility] Organization [facility] Address Unknown Phone Unavailable Care Team Providers Care Research Development Director Name Role Phone Claus Couch MD PCP Reason for Visit * Reason Comments Medication Refill Encounter Details Care Team Description Date Type Department Neyda Redmond MD [address] [place] [address] 07/15/2016 Refill [facility] [address] [address] Social History Date Tobacco Use [...]
--- OUTSIDE RECORDS SUMMARY | 2020-03-24 14:06 | XMS REPORT | Encounter Summary ---
Author Author [facility] Organization [facility] Address Unknown Phone Unavailable Care Team Providers Care Bet Taker Name Role Phone Claus Couch MD PCP Reason for Visit * Reason Comments Medication Refill Encounter Details Care Team Description Date Type Department Claus Couch MD [address] [place] [address] 07/30/2016 Refill [facility] [place] [address] [place] [address] Social History Date Tobacco Use [...]
--- OUTSIDE RECORDS SUMMARY | 2020-03-24 14:06 | XMS REPORT | Encounter Summary ---
Author Author [facility] Organization [facility] Address Unknown Phone Unavailable Care Team Providers Care Etl Database Developer Name Role Phone Claus Couch MD PCP Reason for Visit * Reason Comments Medication Refill Encounter Details Care Team Description Date Type Department Claus Couch MD [address] [place] [address] 07/15/2016 Refill [facility] [place] [address] [place] [address] Social History Date Tobacco Use [...]
--- OUTSIDE RECORDS SUMMARY | 2020-03-24 14:06 | XMS REPORT | Encounter Summary ---
Author Author [facility] Organization [facility] Address Unknown Phone Unavailable Care Team Providers Care A/C Tech Name Role Phone Claus Couch MD PCP Reason for Visit * Reason Comments Medication Refill Encounter Details Care Team Description Date Type Department Claus Couch MD [address] [place] [address] 08/06/2016 Refill [facility] [place] [address] [place] [address] Social History Date Tobacco Use [...]
--- OUTSIDE RECORDS SUMMARY | 2020-03-24 14:06 | XMS REPORT | Encounter Summary ---
Author Author [facility] Organization [facility] Address Unknown Phone Unavailable Care Team Providers Care Wire Communications Engineer Name Role Phone Claus Couch MD PCP Reason for Visit * Reason Comments Seizure stated he had a seizure thi s am around 10 but feels different then he normally does when he has one. Pt does report history of these. Encounter Details Care Team Description Date Type Department Seizure (Primary Dx); Atypical chest pain 09/04/2016 Emergency [facility] Emergency Department [address] [phone] Social History Date Tobacco Use Types Packs/Day [...] Signs Reading Time Taken Comments Vital Sign 127/63 09/04/2016 11:36 AM CDT Blood Pressure - - Pulse - - Temperature 18 09/04/2016 11:36 AM CDT Respiratory Rate 96% 09/04/2016 11:36 AM CDT Oxygen Saturation - - Inhaled Oxygen Concentration 89 kg (196 lb 3.4 oz) 09/04/2016 11:36 AM CDT Weight 170.2 cm (5' 7") 09/04/2016 11:36 AM CDT Height 30.73 09/04/2016 11:36 AM CDT Body Mass Index documented in this encounter Discharge Instructions * Attachments The following attachments cannot be sent through Care Everywhere.* SEIZURE (BULGARIAN) documented in this encounter Medications at Time [...] Drop in both eyes 2 times daily. 09/07/2016 03/25/2017 isosorbide mononitrate TAKE ONE 60 [...] 50 Administer 2 16 Gram 5 mcg/spray [place], Sprays in Suspension each nostril daily.. 2015 10/10/2016 oxyCODONE-acetaminophen Take 1 Tablet 60 Tablet 0 (PERCOCET) 5-325 mg by mouth tablet every 4 hours as needed for Pain, Break-Through . Max Daily Amount: 6 Tablet 08/16/2015 07/07/2017 PROAIR HFA 90 Take 2 [...] Procedure Notes * David Ferrer MD - 09/07/2016 9:49 AM CDT Associated Order(s): EKG 12-LEAD [address] [place] [id number] Patient Name: OLIVERIO DALTON CSN: [id number] : 1950 Provider: David Bernard M.D. Admitted: 09/04/2016 ELECTROCARDIOGRAM DATE OF SERVICE: 09/04/2016 09/04/2016 at 1323: The rhythm is regular, sinus in origin with a rate of 67 geneva ts per minute. Complexes are of low voltage. R wave transition is delayed across the chest. No old tracings are available for comparison. DIAGNOSIS: 1) Sinus rh ythm, rate 67 beats per minute. 2) Leftward axis. 3) Clockwise rotation of horiz ontal electrical axis. 4) Low voltage complexes. Dictated by: David Bernard M.D./MEDQ D: [id number] V: [id number] cc: Claus Couch M.D. documented in this encounter ED Notes * Macy Vaughn NP - 09/04/2016 12:07 PM CDT HISTORY OF PRESENT ILLNESS Oliverio Dalton, a 66 y.o. male presents to the ED with a Chief Complaint of Se izure Subjective HPI Comments: Pt with hx of seizure disorder, on dilantin with no seizures that he can recall over the last year. This morning woke up feeling as usual and at 8:57 began to have, what for him is, a typical seizure. He remains aware but mackenzie s difficulty speaking, face twitches and hands clench. He called his chronic care nurse who reported seeing those symptoms. The seizure lasted until 10:02 at which time he quit twitching and was able to speak more clearly. He is still not speaking normally. He has been compliant with medications, denies recent illness. Denies headache. 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 HENT: Negative for congestion, sinus pressure, sore throat and trouble swallowin g. Eyes: Negative for visual disturbance. Respiratory: Negative for cough, shortness of breath and wheezing. Has COPD with respirations at his baseline Cardiovascular: Negative for chest pain, palpitations and leg swelling. Gastrointestinal: Negative for nausea, vomiting and abdominal pain. Genitourinary: Negative for dysuria, decreased urine volume and difficulty urina ting. Musculoskeletal: Negative for myalgias and arthralgias. Skin: Negative for pallor and wound. Neurological: Positive for seizures, facial asymmetry and speech difficulty. Neg ative for syncope, light-headedness and headaches. Hematological: Does not bruise/bleed easily. Psychiatric/Behavioral: Negative for sleep disturbance. PAST MEDICAL HISTORY REVIEWED MEDICAL: Patient has a past medical history of Wrist sprain (08/10); Contusion, back (); Cataract; Unspecified disease of respiratory system; Glaucoma; Asthma; D iabetes; Seizure disorder; Unspecified disorder of lipoid metabolism; Coronary a rtery disease; Chronic ischemic heart disease, unspecified; Unspecified essentia l hypertension; COPD (chronic obstructive pulmonary disease); and Anxiety. He al so has no past medical history of Post-operative nausea and vomiting, Unspecifie d adverse effect of anesthesia, Latex sensitivity, or Obstructive sleep apnea (a dult) (pediatric). SURGICAL: Patient has past surgical history that includes surgical other (05/2001); catara ct removal (2000); surgical other (2001); surgical other (1999); surgical other (11/2001); turp (08/2003); surgical other (04/12); surgical other (09/12); surgica l other (08/14); psa (09/13); surgical other (07/11); colonoscopy flx dx w/collj spec when pfrmd (02/01/2009); hernia repair (1988); lap cholecystectomy (05/17/07) ; coronary artery bypass graft; heart catheterization (04/10); lap,appendectomy ( 05/28/2012); repair umbilical colleen,5+y/o,reduc (05/28/2012); colonoscopy flx dx w/ collj spec when pfrmd (12/28/2013); and hernia inguinal repair (Right, 03/08/2015). FAMILY: Patient's family history includes Asthma in [...] has been smoking Cigarettes. He has a 40 pack-year smoking his tory. He has never used smokeless tobacco. He reports that he currently engages in sexual activity and has had female partners. He reports that he does not drin k alcohol or use illicit drugs. No history [...] ALLERGIES Codeine; Doxycycline; Penicillins; Phenobarbital; Piperacillin-tazobactam; Septr a; Terazosin; and Valium HOME MEDICATIONS Patient's Home Medications Current Home [...] CAPSULE FLUTICASONE (FLONASE) 50 MCG/SPRAY SPRAY, SUSPENSION ISOSORBIDE MONONITRATE (IMDUR) 60 MG EXTENDED RELEASE 24 HOUR TABLET LORATADINE (CLARITIN) 10 MG TABLET LORAZEPAM (ATIVAN) 1 MG TABLET MAGNESIUM OXIDE 250 MG ORAL TAB MULTIVITAMIN PO MUPIROCIN (BACTROBAN) 2 % OINTMENT NAPROXEN SODIUM 220 MG ORAL CAP NITROSTAT 0.4 MG TABLET, SUBLINGUAL OLANZAPINE (ZYPREXA) 2.5 MG TABLET OXYCODONE-ACETAMINOPHEN (PERCOCET) 5-325 MG TABLET PHENYTOIN SODIUM (DILANTIN) 100 MG EXTENDED RELEASE CAPSULE PIOGLITAZONE (ACTOS) 30 MG TABLET POLYETHYLENE GLYCOL 3350 (MIRALAX) 17 GRAM/DOSE POWDER PROAIR HFA 90 MCG/ACTUATION INHALER RAMIPRIL (ALTACE) 10 MG CAPSULE SIMVASTATIN (ZOCOR) 40 MG TABLET TAMSULOSIN (FLOMAX) 0.4 MG CAPSULE TEMAZEPAM (RESTORIL) 15 MG CAPSULE TRAZODONE (DESYREL) 50 MG TABLET ZETIA 10 MG TABLET Medications Modified during this Encounter Modified Medication Previous Medication FLUTICASONE (FLOVENT HFA) 110 MCG/ACTUATION HFA AEROSOL INHALER FLOVENT HFA 110 mcg/actuation HFA Aerosol Inhaler Take 1 Puff by inhalation 2 times daily.. Take 1 Puff by inhalation 2 donis es daily. Medications Discontinued during this Encounter Objective PHYSICAL EXAM INITIAL VS BP: 127/63 mmHg (09/04/161135), Heart Rate: 63 bpm (09/04/161135), Resp: 18 (1 1135), Temp: (not recorded), Temp src: (not recorded), SpO2: 96 % (09/04), Height: 5' 7" (170.2 cm) (09/04/161135), Weight: 89 kg (196 lb 3.4 o z) (09/04/161135), BMI (Calculated): 30.79 (09/04/161135) No LMP for male eugene ent. Physical Exam Constitutional: He is oriented to person, place, and time. He appears well-devel oped and well-nourished. No distress. HENT: Head: Atraumatic. Mouth/Throat: Oropharynx is clear and moist. Right facial droop Eyes: Conjunctivae and EOM are normal. Pupils are equal, round, and reactive to light. Neck: Normal range of motion. No JVD present. No carotid bruit Cardiovascular: Normal rate, regular rhythm and normal heart sounds. Pulmonary/Chest: Effort normal. He has wheezes. He exhibits no tenderness. Abdominal: Soft. Bowel sounds are normal. There is no tenderness. Musculoskeletal: Normal range of motion. He exhibits no edema or tenderness. Lymphadenopathy: He has no cervical adenopathy. Neurological: He is alert and oriented to person, place, and time. He exhibits n ormal muscle tone. Coordination normal. Skin: Skin is warm and dry. No pallor. Psychiatric: He has a normal mood and affect. His behavior is normal. DIAGNOSTICS LAB: Labs this ED Encounter CBC WITH DIFFERENTIAL - Abnormal HEMOGLOBIN 13.6 (*) WBC 9.4 RBC 4.53 HEMATOCRIT 39.3 MCV 86.7 MCH 29.9 MCHC 34.5 RDW 13.9 PLATELETS 320 MPV 8.0 NEUTROPHILS 64 LYMPHOCYTES 28 MONOCYTES 6 EOSINOPHILS 1 BASOPHILS 0 NEUTROPHIL ABSOLUTE 6.04 LYMPHOCYTE ABSOLUTE 2.65 MONOCYTE ABSOLUTE 0.53 EOSINOPHIL ABSOLUTE 0.13 BASOPHILS ABSOLUTE 0.04 PROTIME-INR - Abnormal PROTIME 11.4 (*) INR 1.1 (*) COMPREHENSIVE METABOLIC PANEL - Abnormal SODIUM 135 (*) CHLORIDE 95 (*) GLUCOSE 131 (*) POTASSIUM 4.4 CO2 24 CALCIUM 8.9 BUN 16 CREATININE 0.83 TOTAL PROTEIN 6.7 ALBUMIN 4.1 BILIRUBIN TOTAL 0.4 ALKALINE PHOSPHATASE 58 AST 18 ALT 14 GFR >60 GFR, >60 ANION GAP 16 URINALYSIS WITH REFLEX CULTURE - Abnormal LEUKOCYTE ESTERASE UA Trace (*) WBC UA 3-5 (*) COLOR UA Pale Yellow CLARITY UA Clear SPECIFIC GRAVITY UA 1.004 PH UA 7.0 NITRITE UA Negative PROTEIN UA Negative GLUCOSE UA Negative KETONES UA Negative UROBILINOGEN UA <2.0 BILIRUBIN UA Negative BLOOD UA Negative RBC UA 0-2 BACTERIA UA Negative COMMENT, URINE Mucous: Few PTT - Normal PTT 28.6 TROPONIN - Normal TROPONIN T <0.01 PHENYTOIN LEVEL, TOTAL - Normal PHENYTOIN TOTAL 12.8 TROPONIN - Normal TROPONIN T <0.01 RADIOLOGY: CT HEAD WO CONTRAST Radiologist Impression IMPRESSION: No acute intracranial process. Electronically Signed By: Taras Coombs MD, Signed On: 09/04/2016 12:20 PM XR CHEST PA OR AP Radiologist Impression IMPRESSION: No acute cardiopulmonary process. Electronically Signed By: Taras Coombs MD, Signed On: 09/04/2016 12:20 PM EKG: NSR, prior ASMI, no acute EKG changes PROCEDURES Procedures MEDICAL DECISION MAKING AND PLAN OF CARE Discussed with Dr Couch: Labs unremarkable, observed in ED with no further seizures. Dilantin level is th erapeutic Speech was initially slurred, CT of head negative. No other focal neurologic def icits. The facial droop is chronic for this pt. Gradually improved to his baseli ne during stay in ED Pt had some brief, sharp, atypical chest pains in the left lateral chest, EKG an d troponin negative Not having increased cough or SOB with negative CXR, Ua also checked with no sig n of infection Home on current medications. Considered adding ativan, pt states that his prior reaction to valium was he quit breathing, will hold on this for now F/U with Dr Couch if he has any recurrent seizures, return to ED for any seizu re that does not resolve within 5 minutes REEVALUATION CASE DISCUSSED . New Prescriptions for this Encounter LAST VS BP: 127/63 mmHg (09/04/16 1136), Heart Rate: 63 bpm (09/04/16 1136), Resp: 18 (1 1136), Temp: (not recorded), Temp src: (not recorded), SpO2: 96 % (09/04 1136) CLINICAL IMPRESSION Final diagnoses: [R56.9] Seizure (Primary) [R07.89] Atypical chest pain CODING Coding DISPOSITION, EDUCATION AND MEDICATION RECONCILIATION Medications reconciled. See after visit summary for patient education on discha rged patients. ATTESTATION STATEMENTS documented in this encounter Plan of Treatment Not on filedocumented as of this encounter Procedures Comments Procedure Name Priority Date/Time Associated Diag nosis EKG 12-LEAD Stat 09/08/2016 9:51 AM CDT TROPONIN Stat 09/04/2016 1:30 PM CDT URINALYSIS WITH REFLEX Stat 09/04/2016 CULTURE 1:16 PM CDT XR CHEST PA OR AP 1 VW Stat 09/04/2016 11:[address] HEAD WO CONTRAST Stat 09/04/2016 11:49 AM CDT OXYGEN VIA DEVICE TO KEEP Stat 09/04/2016 O2 SAT ABOVE 11:34 AM CDT PULSE OXIMETRY, Stat 09/04/2016 CONTINUOUS 11:34 AM CDT CBC WITH DIFFERENTIAL Stat 09/04/2016 11:30 AM CDT PTT Stat 09/04/2016 11:30 AM CDT PROTIME-INR Stat 09/04/2016 11:30 AM CDT TROPONIN Stat 09/04/2016 11:30 AM CDT PHENYTOIN LEVEL, TOTAL Stat 09/04/2016 11:30 AM CDT COMPREHENSIVE METABOLIC Stat 09/04/2016 PANEL 11:30 AM CDT documented in this encounter Results * EKG 12-LEAD (09/08/2016 9:51 AM CDT) Narrative Performed At This result has an attachment that is n ot available. Transcriptions David Bernard MD - 09/07/2016 9:49 AM CDT [address] [place] [id number] Patient Name: OLIVERIO DALTON CSN: [id number] : 1950 Provider: David Bernard M.D. Admitted: 09/04/2016 ELECTROCARDIOGRAM DATE OF SERVICE: 09/04/2016 09/04/2016 at 1323: The rhythm is regula r, sinus in origin with a rate of 67 beats per minute. Complexes are of low voltage. R wave transition is delayed across the chest. No old tracings are available for comparison. DIAGNOSIS: 1) Sinus rhythm, rate 67 beats per minute. 2) Leftward axis. 3) Clockwise rotation of horizontal electrical axis. 4) Low voltage complexes. Dictated by: David Bernard M.D./PAVEL D: [id number] V: [id number] cc: Claus Couch M.D. * TROPONIN (09/04/2016 1:30 PM CDT) TROPONIN T <0.01 <0.01 ng/mL [facility] - [place] Specimen Blood Performing Organization Address [facility] Ph one Number [facility] CLIA# [id number] [place] [address] - [place] [address] [facility] * URINALYSIS WITH REFLEX CULTURE (09/04/2016 1:16 PM CDT) COLOR UA Pale Yellow Pale to dark yellow [facility] [place] CLARITY UA Clear Clear [facility] [place] SPECIFIC 1.004 1.003 - 1.035 [facility] GRAVITY UA LABORATORY SERVICES - [place] PH UA 7.0 5.0 - 8.0 [facility] [place] LEUKOCYTE Trace (A) Negative [facility] EST[facility] Comment: LABORATORY For patients with SERVICES - [facility] 'trace' results, vane [place] ordering a culture and sensitivity if clinically indicated. NITRITE UA Negative Negative [facility] [place] PROTEIN UA Negative Negative [facility] [place] GLUCOSE UA Negative Negative [facility] [place] KETONES UA Negative Negative [facility] [place] UROBILINOGEN UA <2.0 <2.0 mg/dL [facility] [place] BILIRUBIN UA Negative Negative [facility] [place] BLOOD UA Negative Negative [facility] [place] WBC UA 3-5 (A) 0 - 2 /hpf [facility] [place] RBC UA 0-2 0 - 2 /hpf [facility] [place] BACTERIA UA Negative Negative /hpf [facility] [place] COMMENT, URINE Mucous: Few [facility] - [place] Specimen Urine - Urine specimen obtained by clean catch procedure (specimen) Performing Organization Address City/[facility] Ph one Number [facility] CLIA# [id number] [place], [place] [address] - [place] [address] * XR CHEST PA OR AP (09/04/2016 11:56 AM CDT) Specimen Impressions Performed At IMPRESSION: INTERFACE SYSTEM No acute cardiopulmonary process. Electronically Signed By: Taras Coombs MD, Signed On: 09/04/2016 12:20 PM Narrative Performed At EXAM: Portable chest x-ray. INTERFACE SYSTEM REASON FOR EXAM: Seizures. FINDINGS: COMPARISON: 01/16/2016. The heart size and pulmonary vascularit y are within normal limits. No infiltrates, effusions, or pneumothoraces are identified. There ar e surgical changes of a median sternotomy and CABG. The osseous structures are unremarkable . Procedure Note [facility] Incoming Radiology Results - 09/04/2016 12:25 PM CDT EXAM: Portable chest x-ray. REASON FOR EXAM: Seizures. FINDINGS: COMPARISON: 01/16/2016. The heart size and pulmonary vascularity are within normal limits. No infiltrates, effusions, or pneumothoraces are identified. There are surgical changes of a median sternotomy and CABG. The osseous structures are unremarkable. IMPRESSION IMPRESSION: No acute cardiopulmonary process. Electronically Signed By: Taras Coombs MD, Signed On: 09/04/2016 12:20 PM Performing Organization Address [facility] one Number INTERFACE SYSTEM INTERFACE SYSTEM Refer to clinic/hospital department * CT HEAD WO CONTRAST (09/04/2016 11:49 AM CDT) Specimen Impressions Performed At IMPRESSION: INTERFACE SYSTEM No acute intracranial process. Electronically Signed By: Taras Coombs MD, Signed On: 09/04/2016 12:20 PM Narrative Performed At EXAM: CT of the head without contrast. INTERFACE SYS TEM REASON FOR EXAM: Seizure. Slurred speec h. DISCLAIMER: CT does reduction technique s were performed to achieve ALARA. COMPARISON: None. FINDINGS: No midline shift or mass-effect is iden tified. No mass lesion is seen. The basal cisterns are patent. No intra-axial or extra-axial fluid col lections are seen to suggest bleeding. The parsons-white interface is intact. The re is no CT evidence for an acute transcortical infarction. CT, however, is insensitive for acute ische michi/infarction. The ventricles and sulci are appropriat e for the patient's age. The calvarium is intact. The orbits and mastoid air cells are unremarkable. The paranasal sinuses are clear. Procedure Note Interface, [facility] Incoming Radiology Results - 09/04/2016 12:25 PM CDT EXAM: CT of the head without contrast. REASON FOR EXAM: Seizure. Slurred speech. DISCLAIMER: CT does reduction techniques were performed to achieve ALARA. COMPARISON: None. FINDINGS: No midline shift or mass-effect is identified. No mass lesion is seen. The basal cisterns are patent. No intra-axial or extra-axial fluid collections are seen to suggest bleeding. The parsons-white interface is intact. There is no CT evidence for an acute transcortical infarction. CT, however, is insensitive for acute ischemia/infarction. The ventricles and sulci are appropriate for the patient's age. The calvarium is intact. The orbits and mastoid air cells are unremarkable. The paranasal sinuses are clear. IMPRESSION IMPRESSION: No acute intracranial process. Electronically Signed By: Taras Coombs MD, Signed On: 09/04/2016 12:20 PM Performing Organization Address [facility] Number INTERFACE SYSTEM INTERFACE SYSTEM Refer to clinic/hospital department * PHENYTOIN LEVEL, TOTAL (09/04/2016 11:30 AM CDT) Pathologist [facility] PHENYTOIN TOTAL 12.8 10.0 - 20.0 ug/mL [facility] LAB[facility]ORY [facility] Specimen Blood Performing Organization Address [facility] one Number [facility] LABORATORY [facility] CLIA# [id number] [place], [place] [address] - [address] * TROPONIN (09/04/2016 11:30 AM CDT) [facility] TROPONIN T <0.01 <0.01 ng/mL [facility] LAB[facility]ATORY [facility] Specimen Blood Performing Organization Address [facility] one [facility] LABORATORY [facility] CLIA# [id number] [place], [place] [address] * COMPREHENSIVE METABOLIC PANEL (09/04/2016 11:30 AM CDT) [facility] SODIUM 135 (L) 136 - 145 mmol/L [facility] - [place] POTASSIUM 4.4 3.5 - 5.1 mmol/L [facility] - [place] CHLORIDE 95 (L) 98 - 107 mmol/L [facility] - [place] CO2 24 22 - 29 mmol/L [facility] - [place] CALCIUM 8.9 8.8 - 10.2 mg/dL [facility] - [place] BUN 16 8 - 23 mg/dL [facility] - [place] CREATININE 0.83 0.67 - 1.17 mg/dL [facility] - [place] GLUCOSE 131 (H) 70 - 100 mg/dL [facility] - [place] TOTAL PROTEIN 6.7 6.6 - 8.7 g/dL [facility] - [place] ALBUMIN 4.1 3.5 - 5.2 g/dL [facility] - [place] BILIRUBIN TOTAL 0.4 <=1.2 mg/dL [facility] LABORATORY SERVICES - [facility] [place] ALKALINE 58 40 - 129 U/L [facility] PHOSPHATASE LABORATORY SERVICES - [place] AST 18 <=41 U/L [facility] - [place] ALT 14 10 - 50 U/L [facility] - [place] GFR >60 >=60 mL/min/1.73 sq [facility] Comment: meter LABORATORY eGFR has not been validated [facility] for use in the elderly (> [...] result. GFR, >60 >=60 mL/min/1.73 sq [facility] LABORATORY SERVICES - [facility] [place] ANION GAP 16 4 - 20 mmol/L [facility] - [place] Specimen Blood Performing Organization Address City/State/Zipcode Ph one Number [facility] CLIA# [id number] [place] [address] - [place] [address] [facility] * PTT (09/04/2016 11:30 AM CDT) PTT 28.6 23.0 - 30.0 seconds [facility] [place] Specimen Blood Performing Organization Address [facility] Ph one Number [facility] CLIA# [id number] [place] [address] [place] [address] [place] [address] * PROTIME-INR (09/04/2016 11:30 AM CDT) PROTIME 11.4 (H) 9.6 - 11.0 Seconds [facility] - [place] INR 1.1 (L) 2.0 - 3.0 [facility] [place] Specimen Blood Performing Organization Address [facility] Ph one Number [facility] CLIA# [id number] [place] [address] - [place] [address] [place] [address] * CBC WITH DIFFERENTIAL (09/04/2016 11:30 AM CDT) WBC 9.4 2.9 - 11.0 K/uL [facility] [place] RBC 4.53 4.15 - 6.03 M/uL [facility] [place] HEMOGLOBIN 13.6 (L) 13.8 - 17.4 g/dL [facility] [place] HEMATOCRIT 39.3 38.6 - 54.6 % [facility] [place] MCV 86.7 82.4 - 103.2 fL [facility] [place] MCH 29.9 26.2 - 32.6 pg [facility] [place] MCHC 34.5 30.2 - 35.0 g/dL [facility] [place] RDW 13.9 11.5 - 13.9 % [facility] [place] PLATELETS 320 137 - 410 K/uL [facility] [place] MPV 8.0 7.4 - 11.9 fL [facility] [...] [facility] [place] NEUTROPHIL 6.04 1.30 - 7.60 K/uL [facility] [place] LYMPHOCYTE 2.65 0.60 - 4.90 K/uL [facility] [place] MONOCYTE 0.53 0.10 - 0.90 K/uL [facility] ABSOLUTE [facility]ORY [facility] - [place] EOSINOPHIL 0.13 0.00 - 0.40 K/uL [facility] ABSOLUTE [facility]ATORY [facility] - [place] BASOPHILS 0.04 0.00 - 0.10 K/uL [facility] [facility] [place] Specimen Blood Performing Organization Address City/State/Zipcode Ph one Number [facility] CLIA# [id number] [place] [address] - [place] [address] [place], [place] [address]VD documented in this encounter Visit Diagnoses Diagnosis Seizure - Primary Other convulsions Atypical chest pain Other chest pain documented in this encounter
--- OUTSIDE RECORDS SUMMARY | 2020-03-24 14:07 | XMS REPORT | Encounter Summary ---
Author Author [facility] Organization [facility] Address Unknown Phone Unavailable Care Team Providers Care Police Officer Name Role Phone Claus Couch MD PCP Encounter Details Care Team Description Date Type Department Jona Doran, CHEMICAL DEPENDENCY PROFESSIONAL [address] [place] [phone] 06/10/2016 Orders Only [facility] [address] [address] Social History Date Tobacco Use [...]
--- OUTSIDE RECORDS SUMMARY | 2020-03-24 14:07 | XMS REPORT | Encounter Summary ---
Author Author [facility] Organization [facility] Address Unknown Phone Unavailable Care Team Providers Care Geothermal Hvac Technician Name Role Phone Claus Couch MD PCP Reason for Referral * Outpatient Services (Routine) Referred By Contact Referred To Contact Status Reason Specialty Diagnoses / Procedures Junior Beal MD [address] [place] [address] Closed Diagnoses Near syncope P rocedures US CAROTID DOPPLER Reason for Visit * Reason Comments Dizziness Encounter Details Care Team Description Date Type Department Junior Beal MD [address] [place] [address] Type 2 diabetes mellitus without complic ation (Primary Dx); Dizziness; 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; Near syncope 07/14/2016 Office Visit [facility] [address] [place] [address] Social History Date Tobacco Use [...] Signs Reading Time Taken Comments Vital Sign 138/90 07/14/2016 2:36 PM CDT Blood Pressure - - Pulse 36.9 C (98.5 F) 07/14/2016 2:36 PM CDT Temperature - - Respiratory Rate - - Oxygen Saturation - - Inhaled Oxygen Concentration 90.7 kg (200 lb) 07/14/2016 2:36 PM CDT Weight 167.6 cm (5' 6") 07/14/2016 2:36 PM CDT Height 32.28 07/14/2016 2:36 PM CDT Body Mass Index documented in this encounter Progress Notes * Junior Beal MD - 07/14/2016 2:44 PM CDT HISTORY OF PRESENT ILLNESS Oliverio Dalton, a 65 y.o. male presents with a Chief Complaint of Dizziness Subjective HPI Intermittent but seem more severe than in past Reports normal hydration and eating with no visible blood loss REVIEW OF SYSTEMS Review of Systems Constitutional: Negative for activity change, appetite change and unexpected prem ght change. Respiratory: Negative for shortness of breath. Cardiovascular: Negative for chest pain. Gastrointestinal: Negative for diarrhea and constipation. Endocrine: Negative for cold intolerance, heat intolerance, polydipsia, polyphag ia and polyuria. Genitourinary: Negative for urgency and hematuria. Musculoskeletal: Negative for arthralgias. Neurological: Positive for dizziness. Negative for headaches. Hematological: Negative for adenopathy. Objective PHYSICAL EXAM BP 138/90 mmHg | Temp(Src) 98.5 F (36.9 C) | Ht 5' 6" (1.676 m) | Wt 90.719 kg (200 lb) | BMI 32.30 kg/m2 Physical Exam Constitutional: He appears well-developed and well-nourished. HENT: Head: Normocephalic and atraumatic. Mouth/Throat: No oropharyngeal exudate. Eyes: Pupils are equal, round, and reactive to light. Neck: Normal range of motion. No thyromegaly present. Cardiovascular: Normal rate and regular rhythm. Pulmonary/Chest: Effort normal and breath sounds normal. Abdominal: Soft. Bowel sounds are normal. Musculoskeletal: He exhibits no edema. Assessment ASSESSMENT and PLAN: ICD-10-CM ICD-9-CM 1. Type 2 diabetes mellitus without complication E11.9 250.00 HEMOGLOBIN A1C 2. Dizziness R42 780.4 CBC WITH DIFFERENTIAL COMPREHENSIVE METABOLIC PANEL 3. Coronary artery disease involving ak chin coronary artery of ak chin heart with out angina pectoris I25.10 414.01 4. Near syncope R55 780.2 US CAROTID DOPPLER Will evaluate for carotid occlusion and for anemia and worsening glycemic contro l If negative pt has had some symptomatic bradycardia and may benefit from holter/ event monitor documented in this encounter Plan of Treatment Not on filedocumented as of this encounter Results * US CAROTID DOPPLER [...] the vertebral arterie s. Procedure Note Interface, [facility] Incoming Radiology Results - 07/17/2016 11:16 [...] On: 07/17/2016 11:12 AM Performing Organization Address City/[facility] Ph one Number INTERFACE SYSTEM INTERFACE SYSTEM Refer to clinic/hospital department * HEMOGLOBIN A1C (07/14/2016 2:56 PM CDT) HEMOGLOBIN A1C 6.2 (H) 4.8 - 5.9 % [facility] [place] EST. AVG 131 mg/dL [facility] GLU[facility]SE, A1C [facility] - [place] Specimen Blood Performing Organization Address City/[facility] [place] [place] Ph one Number [facility] CLIA# [id number] [place] [address] - [place] [address] * COMPREHENSIVE METABOLIC PANEL (07/14/2016 2:56 PM CDT) SODIUM 137 136 - 145 mmol/L [facility] [place] POTASSIUM 5.2 (H) 3.5 - 5.1 mmol/L [facility] [place] CHLORIDE 97 (L) 98 - 107 mmol/L [facility] [place] CO2 27 22 - 29 mmol/L [facility] [place] CALCIUM 9.3 8.8 - 10.2 mg/dL [facility] [place] BUN 15 8 - 23 mg/dL [facility] [place] CREATININE 0.90 0.67 - 1.17 mg/dL [facility] [place] GLUCOSE 112 (H) 70 - 100 mg/dL [facility] F[facility] TOTAL PROTEIN 7.0 6.6 - 8.7 g/dL [facility] [place] ALBUMIN 4.2 3.5 - 5.2 g/dL [facility] [place] BILIRUBIN TOTAL 0.2 <=1.2 mg/dL [facility] [place] ALKALINE 56 40 - 129 U/L [facility] [place] AST 17 <=41 U/L [facility] [place] ALT 15 10 - 50 U/L [facility] [place] GFR >60 >=60 mL/min/1.73 sq [facility] Comment: meter LABORATORY eGFR has not been validated [facility] for use in the elderly [...] result. GFR, >60 >=60 mL/min/1.73 sq [facility] meter [facility] - [place] ANION GAP 13 4 - 20 mmol/L [facility] [place] Specimen Blood Performing Organization Address City/State/[facility] Ph one Number [facility] CLIA# [id number] [place] [address] - [place] [address] * CBC WITH DIFFERENTIAL (07/14/2016 2:56 PM CDT) [facility] WBC 8.2 2.9 - 11.0 K/uL [facility] [place] RBC 4.70 4.15 - 6.03 M/uL [facility] [place] HEMOGLOBIN 13.8 13.8 - 17.4 g/dL [facility] [...] - 11.9 fL [facility] [place] NEUTROPHILS 64 43 - 73 % [facility] [place] LYMPHOCYTES 29 19 - 47 % [facility] [...] [place] BASOPHILS 0.02 0.00 - 0.10 K/uL [facility] - [place] Specimen Blood Performing Organization Address City/State/[facility] Ph one Number [facility] CLIA# [id number] [place] [address] - [place] [address] [place] [address] BLVD documented in this encounter Visit Diagnoses Diagnosis Type 2 diabetes mellitus without compli cation - Primary Dizziness Dizziness and giddiness Coronary artery disease involving nativ e coronary artery of ak chin heart without angina pectoris Near syncope Syncope and collapse documented in this encounter
--- OUTSIDE RECORDS SUMMARY | 2020-03-24 14:07 | XMS REPORT | Encounter Summary ---
Author Author [facility] Organization [facility] Address Unknown Phone Unavailable Care Team Providers Care Scenic Artist Name Role Phone Claus Couch MD PCP Reason for Visit * Reason Comments Hand Injury Re-injured Rt. Finger- 07/01 Encounter Details Care Team Description Date Type Department Jose Bailey MD [address] [place] [address] Closed displaced fracture of middle phal anx of right little finger with routine healing, subsequent encounter (Primary Dx) 07/02/2016 Office Visit [facility]op ed[facility] [address] [address] Social History Date Tobacco Use [...] Reading Time Taken Comments Vital Sign 122/68 07/02/2016 9:16 AM CDT Blood Pressure - - Pulse - - Temperature - - Respiratory Rate - - Oxygen Saturation - - Inhaled Oxygen Concentration 90.7 kg (200 lb) 07/02/2016 9:16 AM CDT Weight 167.6 cm (5' 6") 07/02/2016 9:16 AM CDT Height 32.28 07/02/2016 9:16 AM CDT Body Mass Index documented in this encounter Progress Notes * Jose Bailey MD - 07/02/2016 9:59 AM CDT fell again yesterday reinjuring his right fifth finger. He a little bit incr eased pain. They luis taped the fifth to the fourth finger. He notes a little c atching when he flexes the finger. With a catch he has minimal pain. On exam there is no deformity of the finger. No swelling. He can flex and extend the fifth finger with a little catch when he starts to flex it down. Doesn't ap pear to be a trigger finger type catching. No skin changes are noted. He has nor mal sensation and good cap refill. Noel-rays taken today and compared to the x-rays on 06/24 showed no appreciable ch betzaida in alignment with minimal displacement. I told Mr. Dalton he may have move the fracture of its healing and minimally. The catching may be soft tissue or he could be developing a trigger finger. I'd abhishek mmend luis taping the fifth to the fourth finger for a couple of weeks for prot ection and comfort. Then start working on range of motion. If he continues to mackenzie ve catching in his finger or additional problems to return for recheck documented in this encounter Plan of Treatment Not on filedocumented as of this encounter Visit Diagnoses Diagnosis Closed displaced fracture of middle pha lanx of right little finger with routine healing, subsequent encounter - Primary documented in this encounter
--- OUTSIDE RECORDS SUMMARY | 2020-03-24 14:07 | XMS REPORT | Encounter Summary ---
Author Author [facility] Organization [facility] Address Unknown Phone Unavailable Care Team Providers Care Rock Crusher Operator Name Role Phone Claus Couch MD PCP Encounter Details Care Team Description Date Type Department Shahram Dyson, Physical Therapist CASE COMMUNICATION 07/02/2016 [facility] [address] [place] [address] Social History Date Tobacco Use [...]
--- OUTSIDE RECORDS SUMMARY | 2020-03-24 14:07 | XMS REPORT | Encounter Summary ---
Author Author [facility] Organization [facility] Address Unknown Phone Unavailable Care Team Providers Care Keno Writer Name Role Phone Claus Couch MD PCP Reason for Visit * Reason Comments Follow Up F/U Rt Finger Fx (xray prio r to appt) Encounter Details Care Team Description Date Type Department Jose Antonio MD [address] [place] [address] Closed nondisplaced fracture of middle p halanx of right little finger with routine healing, subsequent encounter (Primary Dx) 06/24/2016 Office Visit [facility] Orthop ed[facility] [address] [address] Social History Date Tobacco Use [...] Signs Reading Time Taken Comments Vital Sign 126/70 06/24/2016 10:30 AM CDT Blood Pressure - - Pulse - - Temperature - - Respiratory Rate - - Oxygen Saturation - - Inhaled Oxygen Concentration 86.2 kg (190 lb) 06/24/2016 10:30 AM CDT Weight 167.6 cm (5' 6") 06/24/2016 10:30 AM CDT Height 30.67 06/24/2016 10:30 AM CDT Body Mass Index documented in this encounter Progress Notes * Jose Antonio MD - 06/24/2016 10:39 AM CDT 37 days post right fifth middle phalanx fracture, finger he is pleased, no complaints or concerns. function improving, he has been luis taping on exam he has very good motion of the right fifth finger. no angulation or mal rotation. n-v intact xrays show very nice alignment, near complete healing of the fracture. A: as above, doing well P: activty as tolerated. he may wean from luis taping. recheck prn. as noted today dr antonio I have reviewed the above and examined the patient with Solomon and agree documented in this encounter Plan of Treatment Not on filedocumented as of this encounter Visit Diagnoses Diagnosis Closed nondisplaced fracture of middle phalanx of right little finger with routine healing, subsequent encounter - Primary documented in this encounter
--- OUTSIDE RECORDS SUMMARY | 2020-03-24 14:07 | XMS REPORT | Encounter Summary ---
Author Author [facility] Organization [facility] Address Unknown Phone Unavailable Care Team Providers Care Military Pay Clerk Name Role Phone Claus Couch MD PCP Reason for Visit * Reason Comments Medication Refill Encounter Details Care Team Description Date Type Department Claus Couch MD [address] [place] [address] 06/01/2016 Refill [facility] Prim[facility] y [facility] [place] [address] [place] [address] Social History Date Tobacco Use [...]
--- OUTSIDE RECORDS SUMMARY | 2020-03-24 14:07 | XMS REPORT | Encounter Summary ---
Author Author [facility] Organization [facility] Address Unknown Phone Unavailable Care Team Providers Care Clerical And Administrative Workers Name Role Phone Claus Couch MD PCP Reason for Visit * Auth/Cert Referred By Contact Referred To Contact Status Reason Specialty Diagnoses / Procedures [facility] [address] [place] [phone] Radiology Encounter Details Care Team Description Date Type Department Jona Doran, COMMERCIAL ACCOUNT EXECUTIVE [address] [place] [address] 06/24/2016 [facility] rvices Encounter [place] [address] [place] [address] Social History Date Tobacco Use [...] Package 0 (ACCU-CHEK ACTIVE TEST) pm prn [facility] 12/29/2007 BETIMOL 0.5 % OP Drop [...] 50 Administer 2 16 Gram 5 mcg/spray [place], Sprays in Suspension each nostril daily.. 2015 [...] Name Priority Date/Time Associated Diag nosis XR FINGER(S) RIGHT Routine 06/24/2016 Closed nond isplaced 10:25 AM CDT fracture of middle phalanx of right little finger with routine healing, subsequent encounter documented in this encounter Results * XR FINGER(S) RIGHT (06/24/2016 10:25 AM CDT) Specimen Impressions Performed At IMPRESSION: INTERFACE SYSTEM No significant change in the appearance of the fracture involving the proximal aspect of the middle phalanx of the fifth digit. Electronically Signed By: Kishan Kasper MD, Signed On: 06/24/2016 10:42 AM Narrative Performed At EXAM: 3 views right fifth digit INTERFACE SYSTEM CLINICAL INDICATION: Followup right fif th finger closed displaced fracture of the middle phalanx. Subsequent encounter. COMPARISON: Most recent dated 06/10/16 FINDINGS: No significant change in the obliquely oriented intra-articular fracture involving the proximal aspect of the middle phalanx of the fif th digit. No increasing displacement of the fracture fragment identified. Fracture line still visuali zed. No additional fractures identified. Procedure Note Interface, [facility] [place] [facility] Incoming Radiology Results - 06/24/2016 10:47 AM CDT EXAM: 3 views right fifth digit CLINICAL INDICATION: Followup right fifth finger closed displaced fracture of the middle phalanx. Subsequent encounter. COMPARISON: Most recent dated 06/10/16 FINDINGS: No significant change in the obliquely oriented intra-articular fracture involving the proximal aspect of the middle phalanx of the fifth digit. No increasing displacement of the fracture fragment identified. Fracture line still visualized. No additional fractures identified. IMPRESSION IMPRESSION: No significant change in the appearance of the fracture involving the proximal aspect of the middle phalanx of the fifth digit. Electronically Signed By: Kishan Kasper MD, Signed On: 06/24/2016 10:42 AM Performing Organization Address City/State/Zipcode Ph one Number INTERFACE SYSTEM INTERFACE SYSTEM Refer to clinic/hospital department documented in this encounter Visit Diagnoses Diagnosis Closed nondisplaced fracture of middle phalanx of right little finger with routine healing, subsequent encounter documented in this encounter
--- OUTSIDE RECORDS SUMMARY | 2020-03-24 14:07 | XMS REPORT | Encounter Summary ---
Author Author [facility] Organization [facility] Address Unknown Phone Unavailable Care Team Providers Care Coal Cutter Name Role Phone Claus Couch MD PCP Reason for Visit * Reason Comments Follow Up F/U Rt Finger Fx (xray cynthia or to appt) Encounter Details Care Team Description Date Type Department Jona Doran, PERSONAL SERVICE WORKERS [address] [place] [address] Closed nondisplaced fracture of middle p halanx of right little finger with routine healing, subsequent encounter (Primary Dx) 06/10/2016 Office Visit [facility] Orthop ed[facility] [place] [address] [place] [address] Social History Date Tobacco Use [...] Inhaled Oxygen Concentration 86.2 kg (190 lb) 06/10/2016 10:40 AM CDT Weight 167.6 cm (5' 6") 06/10/2016 10:40 AM CDT Height 30.67 06/10/2016 10:40 AM CDT Body Mass Index documented in this encounter Progress Notes * Jona Doran APRN - 06/10/2016 11:00 AM CDT 23 days post right fifth finger, middle phalanx fracture, He's been luis taping. No questions, concerns or complaints. On exam. No angulation, malrotation, just a little bit of limitation of extensi on. This is probably secondary to stiffness of the MCP. He certainly has good functional motion. His neurovascular status is intact. X-rays show unchanged in satisfactory alignment of the middle phalanx fracture, right fifth finger. Assessment middle phalanx fracture, right fifth finger. Plan continue luis taping. Avoid loading the, finger. We'll plan to recheck i n 2, weeks. New x-ray prior seems sooner when necessary documented in this encounter Plan of Treatment Not on filedocumented as of this encounter Results * XR FINGER(S) RIGHT [...] No additional fractures identified. Procedure Note Interface, [facility] [place] [facility] Incoming Radiology Results - 06/24/2016 10:47 [...] On: 06/24/2016 10:42 AM Performing Organization Address City/State[facility] INTERFACE SYSTEM INTERFACE SYSTEM Refer to clinic/hospital department documented in this encounter Visit Diagnoses Diagnosis Closed nondisplaced fracture of middle phalanx of right little finger with routine healing, subsequent encounter - Primary documented in this encounter
--- OUTSIDE RECORDS SUMMARY | 2020-03-24 14:07 | XMS REPORT | Encounter Summary ---
Author Author [facility] Organization [facility] Address Unknown Phone Unavailable Care Team Providers Care Insurance Underwriter Name Role Phone Claus Couch MD PCP Reason for Referral * Outpatient Services (Routine) Referred By Contact Referred To Contact Status Reason Specialty Diagnoses / Procedures Claus Couch MD [address] [place] [address] Closed Diagnoses Seizure disorder Falls frequently P rocedures MRI BRAIN WO CONTRAST Reason for Visit * Outpatient Services (Routine) Referred By Contact Referred To Contact Status Reason Specialty Diagnoses / Procedures Claus Couch MD [address] [place] [phone] Closed Diagnoses Seizure disorder Falls frequently P rocedures MRI BRAIN WO CONTRAST Encounter Details Care Team Description Date Type Department Claus Couch MD [address] [place] [address] 07/09/2016 [facility] Encounter [facility] [address] [place] [address] Social History Date Tobacco Use [...] 49 Administer 2 16 Gram 5 mcg/spray [place], Sprays in Suspension each nostril daily.. 2015 [...] Procedure Name Priority Date/Time Associated Diag nosis MRI BRAIN WO CONTRAST Routine 07/09/2016 Seizure disorder 10:06 AM CDT Falls frequently documented in this encounter Results * MRI BRAIN WO CONTRAST (07/09/2016 10:06 AM CDT) Specimen Impressions Performed At IMPRESSION: INTERFACE SYSTEM Unremarkable MRI of the head. No MRI fi ndings to explain the etiology of the patient's symptoms. Electronically Signed By: Kishan Kasper MD, Signed On: 07/09/2016 11:32 AM Narrative Performed At EXAM: MRI of the head without contrast INTERFACE SYS TEM CLINICAL INDICATION: Seizures. Epilepsy . Dizziness. Frequent falls. TECHNIQUE: Multiplanar and multisequenc e MR imaging was performed through the head without the use of gadolinium contrast. Seizure protocol w as utilized. COMPARISON: CT head 02/08/13 FINDINGS: The ventricles and sulci are prominent consistent with mild generalized parenchymal volume loss. There is no evidence of midline shift, mass or mass effect. Incidental note is made of a cavum sept um pellucidum and cavum vergae. The basal cisterns are patent. No MRI evidence of acute intracranial h emorrhage. No evidence of extra-axial fluid collec tion. No focal parenchymal susceptibility abn ormality identified on the gradient sequence to suggest point contusion/hemorrhage, hypertensive ence phalopathy or cerebral amyloid angiopathy. No restricted diffusion identified to s uggest acute/recent infarction. No discrete focal parenchymal signal ab normality identified. The visualized major intracranial vascu lar flow voids are maintained. The visualized globes and orbits are un remarkable. No significant mucosal thickening or ai r-fluid levels within the paranasal sinuses or mastoid air cells. The visualized midline structures inclu ding the craniocervical junction are unremarkable. Dedicated coronal T2 and FLAIR sequence s were performed through the mesial temporal lobes. The bilateral mesial temporal lobes are symmetric wit hout asymmetric volume loss or pathologic signal intensity identified. No MR evidence of mesial te mporal sclerosis. Procedure Note Interface, [facility] Incoming Radiology Results - 07/09/2016 11:36 AM CDT EXAM: MRI of the head without contrast CLINICAL INDICATION: Seizures. Epilepsy. Dizziness. Frequent falls. TECHNIQUE: Multiplanar and multisequence MR imaging was performed through the head without the use of gadolinium contrast. Seizure protocol was utilized. COMPARISON: CT head 02/08/13 FINDINGS: The ventricles and sulci are prominent consistent with mild generalized parenchymal volume loss. There is no evidence of midline shift, mass or mass effect. Incidental note is made of a cavum septum pellucidum and cavum vergae. The basal cisterns are patent. No MRI evidence of acute intracranial hemorrhage. No evidence of extra-axial fluid collection. No focal parenchymal susceptibility abnormality identified on the gradient sequence to suggest point contusion/hemorrhage, hypertensive encephalopathy or cerebral amyloid angiopathy. No restricted diffusion identified to suggest acute/recent infarction. No discrete focal parenchymal signal abnormality identified. The visualized major intracranial vascular flow voids are maintained. The visualized globes and orbits are unremarkable. No significant mucosal thickening or air-fluid levels within the paranasal sinuses or mastoid air cells. The visualized midline structures including the craniocervical junction are unremarkable. Dedicated coronal T2 and FLAIR sequences were performed through the mesial temporal lobes. The bilateral mesial temporal lobes are symmetric without asymmetric volume loss or pathologic signal intensity identified. No MR evidence of mesial temporal sclerosis. IMPRESSION IMPRESSION: Unremarkable MRI of the head. No MRI findings to explain the etiology of the patient's symptoms. Electronically Signed By: Kishan Kasper MD, Signed On: 07/09/2016 11:32 AM Performing Organization Address City/State/Zipcode Ph one Number INTERFACE SYSTEM INTERFACE SYSTEM Refer to clinic/hospital department documented in this encounter Visit Diagnoses Diagnosis Seizure disorder Unspecified epilepsy without mention of intractable epilepsy Falls frequently Personal history of fall documented in this encounter
--- OUTSIDE RECORDS SUMMARY | 2020-03-24 14:07 | XMS REPORT | Encounter Summary ---
Author Author [facility] Organization [facility] Address Unknown Phone Unavailable Care Team Providers Care Assistant Professor Of German Name Role Phone Claus Couch MD PCP Encounter Details Care Team Description Date Type Department Jona Doran, MEDICAL CERTIFICATION SPECIALIST [address] [place] [phone] 05/27/2016 Orders Only [facility] [address] [address] Social History Date Tobacco Use [...]
--- OUTSIDE RECORDS SUMMARY | 2020-03-24 14:07 | XMS REPORT | Encounter Summary ---
Author Author [facility] Organization [facility] Address Unknown Phone Unavailable Care Team Providers Care Surveyor Chain Helper Name Role Phone Claus Couch MD PCP Reason for Referral * Eval and Treat (Routine) Referred By Contact Referred To Contact Status Reason Specialty Diagnoses / Procedures Claus Couch MD [address] [place] [address] [facility] [address] [place] [address] Closed [facility] Diagnoses Syncope, unspecified syncope type * Outpatient Services (Routine) Referred By Contact Referred To Contact Status Reason Specialty Diagnoses / Procedures Claus Couch MD [address] [place] [phone] Closed Diagnoses Seizure disorder Falls frequently P rocedures MRI BRAIN WO CONTRAST Reason for Visit * Reason Comments Fall sudden loss of balance with falls, fell this am again especially happens when stands up from sitting to lying do wn and dizzy - Encounter Details Care Team Description Date Type Department Claus Couch MD [address] [place] [address] Seizure disorder (Primary Dx); Essential hypertension; Mixed hyperlipidemia; Falls frequently; Syncope, unspecified syncope type 07/01/2016 Office Visit [facility] [place] [address] [place] [address] Social History Date Tobacco Use Types Packs/Day [...] Signs Reading Time Taken Comments Vital Sign 132/64 07/01/2016 10:52 AM CDT Blood Pressure - - Pulse 35.8 C (96.4 F) 07/01/2016 10:52 AM CDT Temperature - - Respiratory Rate - - Oxygen Saturation - - Inhaled Oxygen Concentration 90.7 kg (200 lb) 07/01/2016 10:52 AM CDT Weight 167.6 cm (5' 6") 07/01/2016 10:52 AM CDT Height 32.28 07/01/2016 10:52 AM CDT Body Mass Index documented in this encounter Progress Notes * Claus Couch MD - 07/01/2016 12:39 PM CDT Oliverio Dalton is a 65 y.o. male History of Present Illness HPI Chief Complaint Patient presents with Fall sudden loss of balance with falls, fell this am again especially happens when stands up from sitting to lying down and dizzy - has been falling for the last several week has been getting worse Worse with standing and with walking Review of Sytems Review of Systems Constitutional: Negative for fever, chills, activity change, appetite change and fatigue. HENT: Negative for congestion, facial swelling, hearing loss, rhinorrhea and sne ezing. Eyes: Negative for discharge and itching. Respiratory: Negative for apnea, choking and chest tightness. Cardiovascular: Negative for chest pain and leg swelling. Gastrointestinal: Negative for vomiting, abdominal pain, diarrhea and abdominal distention. Genitourinary: Negative for hematuria, flank pain and difficulty urinating. Musculoskeletal: Negative for back pain. Skin: Negative for color change. Neurological: Negative for dizziness, syncope, facial asymmetry and numbness. Psychiatric/Behavioral: Negative for behavioral problems and agitation. Physical Exam BP 132/64 mmHg | Temp(Src) 96.4 F (35.8 C) (Tympanic) | Ht 5' 6" (1.676 m) | Wt 90.719 kg (200 lb) | BMI 32.30 kg/m2 Physical Exam Constitutional: He appears well-developed and well-nourished. HENT: Head: Normocephalic and atraumatic. Cardiovascular: Normal rate, regular rhythm, normal heart sounds and intact dist al pulses. Pulmonary/Chest: Effort normal and breath sounds normal. Abdominal: Soft. Bowel sounds are normal. Musculoskeletal: He exhibits no edema or tenderness. ASSESSMENT: Encounter Diagnoses Name Primary? Seizure disorder Yes Essential hypertension Mixed hyperlipidemia Falls frequently Syncope, unspecified syncope type PLAN: Orders Placed This Encounter MRI BRAIN WO CONTRAST *AMB REFERRAL TO HOME HEALTH [facility] the patient is home bound will get Physical Therapy at home to see if it helps i n addition will get mri secondary to falls and history of swizures documented in this encounter Plan of Treatment Order Schedule Name Type Priority Associated Diag noses Ordered: 07/01/2016 AMB REFERRAL TO HOME CARE Outpatient Routine Sync ope, unspecified Referral syncope type documented as of this encounter Results * MRI BRAIN WO [...] this encounter Visit Diagnoses Diagnosis Seizure disorder - Primary Unspecified epilepsy without mention of intractable epilepsy Essential hypertension Unspecified essential hypertension Mixed hyperlipidemia Falls frequently Personal history of fall Syncope, unspecified syncope type documented in this encounter
--- OUTSIDE RECORDS SUMMARY | 2020-03-24 14:07 | XMS REPORT | Encounter Summary ---
Author Author [facility] Organization [facility] Address Unknown Phone Unavailable Care Team Providers Care Director Of Coding Name Role Phone Claus Couch MD PCP Encounter Details Care Team Description Date Type Department Jose Bailey MD [address] [place] [phone] Finger injury, right, initial encounter (Primary Dx) 07/01/2016 Orders Only [facility] [address] [phone] Social History Date Tobacco Use Types Packs/Day [...] this encounter Results * XR FINGER(S) RIGHT (07/02/2016 9:08 AM CDT) Specimen Impressions Performed At IMPRESSION: No change in the alignment at the 5th digit middle phalanx fracture. INTERFACE SYSTEM Electronically Signed By: Cooper freed MD, Signed On: 07/02/2016 10:15 AM Narrative Performed At RADIOLOGIC EXAM: Right hand attention to 5th digit 3 views INTERFACE SYSTEM INDICATION: Right 5th digit middle phal anx fracture, followup evaluation to assess fracture healing COMPARISON: 06/24/2016 FINDINGS: No change in the alignment at the 5th digit middle phalanx fracture site, with the fracture still evident. No new fracture or dislo cation. Chronic deformities of the 4th and 5th metacarpals again evident. Procedure Note Interface, [facility] Incoming Radiology Results - 07/02/2016 10:19 AM CDT RADIOLOGIC EXAM: Right hand attention to 5th digit 3 views INDICATION: Right 5th digit middle phalanx fracture, followup evaluation to assess fracture healing COMPARISON: 06/24/2016 FINDINGS: No change in the alignment at the 5th digit middle phalanx fracture site, with the fracture still evident. No new fracture or dislocation. Chronic deformities of the 4th and 5th metacarpals again evident. IMPRESSION IMPRESSION: No change in the alignment at the 5th digit middle phalanx fracture. Electronically Signed By: Cooper Keller MD, Signed On: 07/02/2016 10:15 AM Performing Organization Address City/State/Zipcode Ph one Number INTERFACE SYSTEM INTERFACE SYSTEM Refer to clinic/hospital department documented in this encounter Visit Diagnoses Diagnosis Finger injury, right, initial encounter - Primary documented in this encounter
--- OUTSIDE RECORDS SUMMARY | 2020-03-24 14:07 | XMS REPORT | Encounter Summary ---
Author Author [facility] Organization [facility] Address Unknown Phone Unavailable Care Team Providers Care Rotary Driller Helper Name Role Phone Claus Couch MD PCP Reason for Visit * Auth/Cert Referred By Contact Referred To Contact Status Reason Specialty Diagnoses / Procedures [facility] [address] [place] [address] Radiology Encounter Details Care Team Description Date Type Department Jose Bailey MD [address] [place] [address] 06/10/2016 [facility] Encounter [place] [address] [place] [address] Social History Date Tobacco Use [...] Package 0 (ACCU-CHEK ACTIVE TEST) pm prn [facility] 12/29/2007 BETIMOL 0.5 % OP Drop Administer 1 0 Drop in both eyes 2 times daily. 06/01/2016 10/02/2016 bethanechol (URECHOLINE) TAKE ONE 120 Tablet 3 25 mg tablet TABLET BY MOUTH FOUR TIMES A DAY 06/01/2016 07/30/2016 temazepam (RESTORIL) 15 Take 1 30 Capsule 2 mg capsule Capsule (15 mg) by mouth nightly as needed for Insomnia. 05/12/2016 06/15/2016 LORazepam (ATIVAN) 1 mg TAKE ONE 60 Tablet 0 tablet TABLET BY MOUTH 2 TIMES A DAY.. 04/27/2016 10/19/2016 ramipril (ALTACE) 10 mg Take [...] 30 Tablet 5 mouth daily at bedtime. 12/16/2015 06/15/2016 OLANZapine (ZYPREXA) 2.5 Take 1 Tab by 30 Tablet 5 mg tablet mouth daily at bedtime. 11/30/2015 11/27/2016 mupirocin [...] 49 Administer 2 16 Gram 5 mcg/spray [place], Sprays in Suspension each nostril daily.. 2015 [...] Associated Diag nosis XR FINGER(S) RIGHT Routine 06/10/2016 Closed disp laced fracture 10:19 AM CDT of middle phalanx of right ring finger with routine healing, subsequent encounter documented in this encounter Results * XR FINGER(S) RIGHT (06/10/2016 10:19 AM CDT) Specimen Impressions Performed At IMPRESSION: Fracture through the proximal portion of the middle phalanx of the INTERFACE SYSTEM right fifth finger has not changed significantly in alignment or p osition. No new fractures. Electronically Signed By: Doug Robins MD, Signed On: 06/10/2016 10:37 AM Narrative Performed At EXAM: THREE-VIEW RIGHT fourth and fifth FINGERS INTE RFACE SYSTEM INDICATION: Indication, Follow up Right fifth finger Closed displaced fracture of middle phalanx of right ring finger with routine healing, subse quent encounter COMPARISON: 05/19/2016 and 05/27/2016 PROCEDURE: AP, oblique and lateral view s were obtained of the fourth and fifth fingers. FINDINGS: The fracture through the prox imal portion of the middle phalanx of the right fifth finger was unchanged in position and alignment. Fr acture alignment visible on the AP and lateral views. Procedure Note Interface, [facility] Incoming Radiology Results - 06/10/2016 10:41 AM CDT EXAM: THREE-VIEW RIGHT fourth and fifth FINGERS INDICATION: Indication, Follow up Right fifth finger Closed displaced fracture of middle phalanx of right ring finger with routine healing, subsequent encounter COMPARISON: 05/19/2016 and 05/27/2016 PROCEDURE: AP, oblique and lateral views were obtained of the fourth and fifth fingers. FINDINGS: The fracture through the proximal portion of the middle phalanx of the right fifth finger was unchanged in position and alignment. Fracture alignment visible on the AP and lateral views. IMPRESSION IMPRESSION: Fracture through the proximal portion of the middle phalanx of the right fifth finger has not changed significantly in alignment or position. No new fractures. Electronically Signed By: Doug Robins MD, Signed On: 06/10/2016 10:37 AM Performing Organization Address City/State/Zipcode Ph one Number INTERFACE SYSTEM INTERFACE SYSTEM Refer to clinic/hospital department documented in this encounter Visit Diagnoses Diagnosis Closed displaced fracture of middle pha lanx of right ring finger with routine healing, subsequent encounter documented in this encounter
--- OUTSIDE RECORDS SUMMARY | 2020-03-24 14:07 | XMS REPORT | Encounter Summary ---
Author Author [facility] Organization [facility] Address Unknown Phone Unavailable Care Team Providers Care Teamcenter Consultant Name Role Phone Claus Couch MD PCP Encounter Details Care Team Description Date Type Department Claus Couch MD [address] [place] [address] 06/19/2016 Abstract [facility] [place] [address] [place] [address] Social History Date Tobacco Use [...]
--- OUTSIDE RECORDS SUMMARY | 2020-03-24 14:07 | XMS REPORT | Encounter Summary ---
Author Author [facility] Organization [facility] Address Unknown Phone Unavailable Care Team Providers Care Stonecutter Hand Name Role Phone Claus Couch MD PCP Reason for Visit * Auth/Cert Referred By Contact Referred To Contact Status Reason Specialty Diagnoses / Procedures [facility] Imaging Services [address] [place] [address] Radiology Encounter Details Care Team Description Date Type Department Jose Bailey MD [address] [place] [address] 07/02/2016 [facility] En[facility] [place] [address] [place] [address] Social History Date Tobacco Use [...] Package 0 (ACCU-CHEK ACTIVE TEST) [facility] BETIMOL 0.5 % OP Drop [...] 49 Administer 2 16 Gram 5 mcg/spray [place], Sprays in Suspension each nostril daily.. 2015 [...] Associated Diag nosis XR FINGER(S) RIGHT Routine 07/02/2016 Finger inju ry, right, 9:08 AM CDT initial encounter documented in this encounter Results [...] 5th metacarpals again evident. Procedure Note Interface, [facility] Incoming Radiology Results - 07/02/2016 10:19 [...] Diagnoses Diagnosis Finger injury, right, initial encounter documented in this encounter
--- OUTSIDE RECORDS SUMMARY | 2020-03-24 14:07 | XMS REPORT | Encounter Summary ---
Author Author [facility] Organization [facility] Address Unknown Phone Unavailable Care Team Providers Care Pilates Instructor Name Role Phone Claus Couch MD PCP Reason for Visit * Reason Comments Medication Refill Encounter Details Care Team Description Date Type Department Claus Couch MD [address] [place] [address] 06/15/2016 Refill [facility] [place] [address] [place] [address] Social History Date Tobacco Use [...]
--- OUTSIDE RECORDS SUMMARY | 2020-03-24 14:08 | XMS REPORT | Encounter Summary ---
Author Author [facility] Organization [facility] Address Unknown Phone Unavailable Care Team Providers Care Hvac/R Service Technician Name Role Phone Claus Couch MD PCP Reason for Visit * Reason Comments Medication Refill Encounter Details Care Team Description Date Type Department Claus Couch MD [address] [place] [address] 05/12/2016 Refill [facility] [place] [address] [place] [address] Social History Date Tobacco Use [...]
--- OUTSIDE RECORDS SUMMARY | 2020-03-24 14:08 | XMS REPORT | Encounter Summary ---
Author Author [facility] Organization [facility] Address Unknown Phone Unavailable Care Team Providers Care Cnc Technician Name Role Phone Claus Couch MD PCP Reason for Visit * Reason Comments Medication Refill Encounter Details Care Team Description Date Type Department Claus Couch MD [address] [place] [address] 03/02/2016 Refill [facility] [place] [address] [place] [address] Social History Date Tobacco Use [...]
--- OUTSIDE RECORDS SUMMARY | 2020-03-24 14:08 | XMS REPORT | Encounter Summary ---
Author Author [facility] Organization [facility] Address Unknown Phone Unavailable Care Team Providers Care Clinical Social Worker Name Role Phone Claus Couch MD PCP Reason for Visit * Reason Comments Medication Refill Encounter Details Care Team Description Date Type Department Claus Couch MD [address] [place] [address] 04/07/2016 Refill [facility] [place] [address] [place] [address] Social History Date Tobacco Use [...]
--- OUTSIDE RECORDS SUMMARY | 2020-03-24 14:08 | XMS REPORT | Encounter Summary ---
Author Author [facility] Organization [facility] Address Unknown Phone Unavailable Care Team Providers Care Spray Gun Striper Name Role Phone Claus Couch MD PCP Reason for Visit * Reason Comments Medication Refill Encounter Details Care Team Description Date Type Department Claus Couch MD [address] [place] [address] 02/03/2016 Refill [facility] [place] [address] [place] [address] Social History Date Tobacco Use [...]
--- OUTSIDE RECORDS SUMMARY | 2020-03-24 14:08 | XMS REPORT | Encounter Summary ---
Author Author [facility] Organization [facility] Address Unknown Phone Unavailable Care Team Providers Care Electrocardiograph Operator Name Role Phone Claus Couch MD PCP Reason for Visit * Reason Comments Medication Refill Encounter Details Care Team Description Date Type Department Claus Couch MD [address] [place] [address] 02/24/2016 Refill [facility] [place] [address] [place] [address] Social History Date Tobacco Use [...]
--- OUTSIDE RECORDS SUMMARY | 2020-03-24 14:08 | XMS REPORT | Encounter Summary ---
Author Author [facility] Organization [facility] Address Unknown Phone Unavailable Care Team Providers Care Bat Lathe Operator Name Role Phone Claus Couch MD PCP Reason for Visit * Reason Comments Medication Refill Encounter Details Care Team Description Date Type Department Claus Couch MD [address] [place] [address] 03/23/2016 Refill [facility] [place] [address] [place] [address] Social History Date Tobacco Use [...]
--- OUTSIDE RECORDS SUMMARY | 2020-03-24 14:08 | XMS REPORT | Encounter Summary ---
Author Author [facility] Organization [facility] Address Unknown Phone Unavailable Care Team Providers Care Laundry Housekeeper Name Role Phone Claus Couch MD PCP Reason for Visit * Reason Comments Medication Refill Encounter Details Care Team Description Date Type Department Claus Couch MD [address] [place] [address] 03/05/2016 Refill [facility] Prim[facility] [place] [address] [place] [address] Social History Date Tobacco Use [...]
--- OUTSIDE RECORDS SUMMARY | 2020-03-24 14:08 | XMS REPORT | Encounter Summary ---
Author Author [facility] Organization [facility] Address Unknown Phone Unavailable Care Team Providers Care Linux Server Engineer Name Role Phone Claus Couch MD PCP Reason for Visit * Reason Comments Hand Injury Rt Finger Injury-Fell Encounter Details Care Team Description Date Type Department Jona Doran, CRIMINAL DEFENSE ATTORNEY [address] [place] [address] Closed nondisplaced fracture of middle p halanx of right little finger, initial encounter (Primary Dx) 05/19/2016 Office Visit [facility] Orthop edics [address] [address] Social History Date Tobacco Use [...] Inhaled Oxygen Concentration 86.2 kg (190 lb) 05/19/2016 3:55 PM CDT Weight 167.6 cm (5' 6") 05/19/2016 3:55 PM CDT Height 30.67 05/19/2016 3:55 PM CDT Body Mass Index documented in this encounter Progress Notes * Jona Doran, JONNATHAN - 05/19/2016 4:28 PM CDT This patient fell up against a wall and injured his right hand, hitting a table type of object. He presented in Dr. Mcmahon's office today. Dr. Mcmahon was propulsion systems engineer, Dr. Mcmahon refe rred him to our service. This is a consult from Dr. Mcmahon. He's had previous boxer fractures, fourth, and fifth right hand. He complains of pain, mostly in the middle phalanx region. Some of the proximal phalanx as well. On exam, superficial abrasion just below the nail radially, dorsum, right fifth finger. He has tenderness, mainly, middle phalanx on the proximal phalanx as we ll. He has ability to flex and extend at the IP PIP, and MCP. He has full exte nsion, satisfactory alignment. There is no definite angulation or malrotation. He sort of holds his hand in a funny rigid way, which makes his clinical evalua tion. Rather difficult, however, he has a normal cascade, when I finally get hi m to slowly make a fist. X-rays show marked osteopenic changes. A lucency noted in the middle phalanx fi fth digit, right hand, which is outbound sales representative of a non-to minimally displaced f racture of the middle phalanx fifth finger right hand. There is also lucency in the proximal phalanx. However, I think this is patchy. Osteopenic changes. Assessment fracture fifth finger, right hand, middle phalanx satisfactory alignm ent. Plan I've asked him to try to keep his hand in a functional position in slight f lexion, rather than the rigid, extension, in or near, spasm that he creates acti vely with his right wrist and hand. His caregiver is with him. I discussed bud dy taping. Daily, checking him for angulation, malrotation, gentle flexion-exte nsion avoiding bumping it or loading the, finger. We'll plan to recheck him in about 10 days. New x-ray prior seems sooner when necessary documented in this encounter Plan of Treatment Not on filedocumented as of this encounter Results * XR FINGER(S) RIGHT (05/27/2016 9:57 AM CDT) Specimen Impressions Performed At IMPRESSION: INTERFACE SYSTEM 1. Mild progressive fracture healing. 2. Chronic findings as above. Electronically Signed By: Elvin garzon MD, Signed On: 05/27/2016 10:11 AM Narrative Performed At STUDY: Right hand fifth digit INTERFACE SYSTEM INDICATION: Closed nondisplaced fractur e middle phalanx right little finger, and initial encounter. COMPARISON: 05/19/2016 TECHNIQUE: 3 views. FINDINGS: Fifth middle phalanx metadiap hyseal fracture is in similar alignment to the prior study. There does appear to be some periosteal new b one at the fracture site, however fracture line remains lucent. Chronic fracture deformities of the fou rth and fifth metacarpal are noted. There is osseous demineralization which decreases sensit ivity for acute osseous abnormality. There is diffuse interphalangeal joint space Procedure Note Interface, [facility] Incoming Radiology Results - 05/27/2016 10:15 AM CDT STUDY: Right hand fifth digit INDICATION: Closed nondisplaced fracture middle phalanx right little finger, and initial encounter. COMPARISON: 05/19/2016 TECHNIQUE: 3 views. FINDINGS: Fifth middle phalanx metadiaphyseal fracture is in similar alignment to the prior study. There does appear to be some periosteal new bone at the fracture site, however fracture line remains lucent. Chronic fracture deformities of the fourth and fifth metacarpal are noted. There is osseous demineralization which decreases sensitivity for acute osseous abnormality. There is diffuse interphalangeal joint space IMPRESSION IMPRESSION: 1. Mild progressive fracture healing. 2. Chronic findings as above. Electronically Signed By: Elvin Queen MD, Signed On: 05/27/2016 10:11 AM Performing Organization Address City/State/Zipcode Ph one Number INTERFACE SYSTEM INTERFACE SYSTEM Refer to clinic/hospital department documented in this encounter Visit Diagnoses Diagnosis Closed nondisplaced fracture of middle phalanx of right little finger, initial encounter - Primary documented in this encounter
--- OUTSIDE RECORDS SUMMARY | 2020-03-24 14:08 | XMS REPORT | Encounter Summary ---
Author Author [facility] Organization [facility] Address Unknown Phone Unavailable Care Team Providers Care Gandy Dancer Name Role Phone Claus Couch MD PCP Reason for Visit * Reason Comments Medication Refill Encounter Details Care Team Description Date Type Department Claus Couch MD [address] [place] [address] 03/10/2016 Refill [facility] Primar y Care [place] [address] [place] [address] Social History Date Tobacco [...]
--- OUTSIDE RECORDS SUMMARY | 2020-03-24 14:08 | XMS REPORT | Encounter Summary ---
Author Author [facility] Organization [facility] Address Unknown Phone Unavailable Care Team Providers Care Fisherman Helper Name Role Phone Claus Couch MD PCP Reason for Visit * Reason Comments Medication Refill Encounter Details Care Team Description Date Type Department Claus Couch MD [address] [place] [address] 03/30/2016 Refill [facility] Primar y Care [place] [address] [place] [address] Social History Date Tobacco Use [...]
--- OUTSIDE RECORDS SUMMARY | 2020-03-24 14:08 | XMS REPORT | Encounter Summary ---
Author Author [facility] Organization [facility] Address Unknown Phone Unavailable Care Team Providers Care Shipbuilding Draftsperson Name Role Phone Claus Couch MD PCP Reason for Visit * Reason Comments Results Encounter Details Care Team Description Date Type Department Walter Oconnor MD [address] [place] [address] 320[address] [place] [phone] Results 03/16/2016 Telephone [facility] [address] [place] [address] Social History Date Tobacco Use [...] Miscellaneous Notes * Telephone Encounter - Beverley Adkins RN - 03/16/2016 10:26 AM CDT Spoke with patient advised him of echo results, he was appreciative of call and voiced understanding. * Telephone Encounter - Beverley Adkins RN - 03/16/2016 10:25 AM CDT ----- Message from Walter Oconnor MD sent at 03/09/2016 10:28 AM CDT ----- Cont the same documented in this encounter Plan of Treatment Not on filedocumented as of this encounter Visit Diagnoses Not on filedocumented in this encounter
--- OUTSIDE RECORDS SUMMARY | 2020-03-24 14:08 | XMS REPORT | Encounter Summary ---
Author Author [facility] Organization [facility] Address Unknown Phone Unavailable Care Team Providers Care Supervisor Production Name Role Phone Claus Couch MD PCP Reason for Visit * Reason Comments Medication Refill Encounter Details Care Team Description Date Type Department Claus Couch MD [address] [place] [address] 02/10/2016 Refill [facility] Primar y Care [place] [address] [place] [address] Social History Date Tobacco Use [...]
--- OUTSIDE RECORDS SUMMARY | 2020-03-24 14:08 | XMS REPORT | Encounter Summary ---
Author Author [facility] Organization [facility] Address Unknown Phone Unavailable Care Team Providers Care Copy Lathe Tender Name Role Phone Claus Couch MD PCP Reason for Visit * Reason Comments Follow Up F/U Rt Finger Injury (xray prior to appt) Encounter Details Care Team Description Date Type Department Jose Bailey MD [address] [place] [address] Closed displaced fracture of middle phal anx of right ring finger with routine healing, subsequent encounter (Primary Dx) 05/27/2016 Office Visit [facility] Orthop [address] [address] Social History Date Tobacco Use [...] Inhaled Oxygen Concentration 86.2 kg (190 lb) 05/27/2016 10:07 AM CDT Weight 167.6 cm (5' 6") 05/27/2016 10:07 AM CDT Height 30.67 05/27/2016 10:07 AM CDT Body Mass Index documented in this encounter Progress Notes * Jose Bailey MD - 05/27/2016 10:35 AM CDT Mr. Dalton is a day since fracture is middle phalanx right fifth finger. He's been luis taping the fingers and having no problems. He's been moving the fifth fin kip without any problems. He thinks the pain is better. On exam he still has some pain over the middle phalanx with palpation. No obviou s deformity angular or rotational. He has a deformity his hand secondary to prev ious metacarpal fractures. He has normal sensation to his fingers and thumb with no skin changes X-ray shows continued good alignment of the minimally displaced middle phalanx f racture. Continue with luis taping. Followup in 2 weeks for recheck and repeat x-rays or sooner if he has problems. Luis taping for approximately 6 weeks total. documented in this encounter Plan of Treatment [...] the AP and lateral views. Procedure Note [facility] Incoming Radiology Results - 06/10/2016 10:41 AM [...] ring finger with routine healing, subsequent encounter - Primary documented in this encounter
--- OUTSIDE RECORDS SUMMARY | 2020-03-24 14:08 | XMS REPORT | Encounter Summary ---
Author Author [facility] Organization [facility] Address Unknown Phone Unavailable Care Team Providers Care Diamond Mounter Name Role Phone Claus Couch MD PCP Reason for Referral * Outpatient Services (Routine) Referred By Contact Referred To Contact Status Reason Specialty Diagnoses / Procedures Walter Oconnor MD [address] [facility] [address] [place] [address] [facility] Ultrasound [address] [place] [address] Closed Radiology Diagnoses Essential hypertension Coronary artery disease involving [place] coronary artery of [place] heart without angina pectoris P rocedures ECHO COMPLETE Reason for Visit * Outpatient Services (Routine) Referred By Contact Referred To Contact Status Reason Specialty Diagnoses / Procedures Walter Oconnor MD [address] [facility] 928[address]358 [place] [address] [facility] Ultrasound [address] [place] [address] Closed Radiology Diagnoses Essential hypertension Coronary artery disease involving [place] coronary artery of [place] heart without angina pectoris P rocedures ECHO COMPLETE Encounter Details Care Team Description Date Type Department Walter Oconnor MD [address] [facility] 320[address] [place] [phone] [facility]/02[facility] [place] [facility] [address] [facility] [place] [id number] Social History Date Tobacco Use Types Packs/Day [...] Drop in both eyes 2 times daily. 03/02/2016 07/21/2017 traZODone (DESYREL) 50 mg Take 1 Tab by 30 Tablet 3 tablet mouth daily at bedtime.. 02/24/2016 09/04/2016 loratadine (CLARITIN) 10 Take 1 Tab by 30 Tablet 5 mg tablet mouth daily. 02/17/2016 06/01/2016 temazepam (RESTORIL) 15 Take 1 30 Capsule 2 mg capsule Capsule (15 mg) by mouth nightly as needed for Insomnia. 02/10/2016 03/10/2016 FLUoxetine (PROZAC) 20 mg TAKE 2 60 Capsule 0 capsule CAPSULES BY MOUTH EVERY DAY. 02/03/2016 08/06/2016 clopidogrel (PLAVIX) 75 Take 1 Tab by 30 Tablet 5 mg Tablet mouth daily. 02/03/2016 06/01/2016 bethanechol (URECHOLINE) TAKE ONE 120 Tablet 3 25 mg tablet TABLET BY MOUTH FOUR TIMES A DAY 01/14/2016 07/15/2016 NEXIUM 40 mg Capsule, Take 1 Cap by 30 Capsule 5 Delayed Release(E.C.) mouth daily before breakfast. 01/14/2016 05/12/2016 LORazepam (ATIVAN) 1 mg TAKE ONE 60 Tablet 3 tablet TABLET BY MOUTH 2 TIMES A DAY.. 01/06/2016 07/15/2016 ZETIA 10 mg tablet Take 1 Tab by 30 Tablet 5 mouth daily at bedtime. 12/16/2015 06/15/2016 OLANZapine (ZYPREXA) 2.5 Take 1 Tab by 30 Tablet 5 mg tablet mouth daily at bedtime. 12/02/2015 03/30/2016 tamsulosin (FLOMAX) 0.4 TAKE ONE 30 Capsule 3 mg capsule CAPSULE BY MOUTH EVERY DAY 30 MINUTES AFTER SUPPER 11/30/2015 11/27/2016 mupirocin (BACTROBAN) 2 % Apply to 15 Gram 0 OintmentIndications: affected area Cellulitis of finger of 2 times left hand daily. 11/27/2015 07/15/2017 NITROSTAT 0.4 mg Tablet, DISSOLVE 1 25 Tablet 0 Sublingual TABLET UNDER TONGUE EVERY 5 MINUTES NEEDED FOR CHEST PAIN. DO NOT EXCEED 3 DOSES. 10/28/2015 04/27/2016 ramipril (ALTACE) 10 mg Take 1 Cap by 90 Capsule 1 capsule mouth daily. 10/14/2015 04/07/2016 pioglitazone (ACTOS) 30 Take 1 Tab by 90 Tablet 1 mg tablet mouth daily.. 10/07/2015 07/07/2017 fluticasone (FLONASE) 50 Administer 2 16 Gram 5 mcg/spray Bypro, Sprays in Suspension each nostril daily.. 09/23/2015 03/23/2016 simvastatin (ZOCOR) 40 mg TAKE ONE 90 Tablet 1 tablet TABLET (40MG) BY MOUTH EVERY DAY IN THE EVENING 09/23/2015 03/23/2016 fenofibrate Take 1 Tab by 30 Tablet 5 nanocrystallized (TRICOR) mouth daily 145 mg tablet with supper. 09/09/2015 03/05/2016 isosorbide mononitrate TAKE ONE 60 Tablet 5 (IMDUR) 60 mg Extended TABLET BY Release 24 hour tablet MOUTH 2 TIMES A DAY 09/09/2015 03/10/2016 phenytoin sodium TAKE 2 90 Capsule 5 (DILANTIN) 100 mg CAPSULES BY extended release capsule MOUTH EVERY MORNING AND ONE CAPSULE AT BEDTIME. 2015 10/10/2016 oxyCODONE-acetaminophen Take 1 Tablet 60 [...] Date/Time Associated Diag nosis ECHO COMPLETE Routine 03/02/2016 Essential hyper tension 11:14 AM CDT Coronary artery disease involving [place] coronary artery of [place] heart without angina pectoris documented in this encounter Results * ECHO COMPLETE (03/02/2016 11:14 AM CDT) Specimen Impressions Performed At : [facility] 1. Possibility of hypokinesis of the posterobasal s egment to the heart CLINIC cannot be completely ruled out. 2. Ejection fraction around 55-60%. 3. Very minimally dilated left atrium . 4. Insignificant mitral and tricuspid regurgitation. Narrative Performed At DATE OF REPORT: 03/02/2016 [facility] : [facility] CLINIC M mode echocardiogram reveals normal in ternal diameter and left ventricle in diastole and systole. Right ventri edin measures 2.27 cm. Septum and the posterior wall thickness normal. Aortic root measures 3.5 cm. The left atrium measures 4.2 cm. 2D echocardiogram done in multiple view s reveals fairly normal left ventricular contraction except for a mi ld hypokinesis of the posterobasal segment of the left ventricle cannot be completely ruled out. Ejection fraction could be around 55-60%. Mitr al, aortic and tricuspid leaflets are unremarkable. Right ventricular c ontraction normal. No pericardial effusion noted. Color flow and doppler study reveals in significant mitral and tricuspid regurgitation. Pulmonary artery systoli c pressure could be around 20 mmHg. Performing Organization Address City/State/Zipcode Ph one Number [facility] documented in this encounter Visit Diagnoses Diagnosis Essential hypertension Unspecified essential hypertension Coronary artery disease involving nat[place] coronary artery of [place] heart without angina pectoris documented in this encounter
--- OUTSIDE RECORDS SUMMARY | 2020-03-24 14:08 | XMS REPORT | Encounter Summary ---
Author Author [facility] Organization [facility] Address Unknown Phone Unavailable Care Team Providers Care Senior Pastor Name Role Phone Claus Couch MD PCP Encounter Details Care Team Description Date Type Department Claus Couch MD [address] [place] [address] 04/24/2016 [facility] Primar y Care [place] [address] [place] [address] Social History Date Tobacco Use [...]
--- OUTSIDE RECORDS SUMMARY | 2020-03-24 14:08 | XMS REPORT | Encounter Summary ---
Author Author [facility] Organization [facility] Address Unknown Phone Unavailable Care Team Providers Care Senior Linux Engineer Name Role Phone Claus Couch MD PCP Reason for Visit * Reason Comments Medication Refill Encounter Details Care Team Description Date Type Department Claus Couch MD [address] [place] [address] 02/17/2016 Refill [facility] Primar y Care [place] [address] [place] [address] Social History Date Tobacco Use [...]
--- OUTSIDE RECORDS SUMMARY | 2020-03-24 14:08 | XMS REPORT | Encounter Summary ---
Author Author [facility] Organization [facility] Address Unknown Phone Unavailable Care Team Providers Care Workforce Development Specialist Name Role Phone Claus Couch MD PCP Reason for Visit * Auth/Cert Referred By Contact Referred To Contact Status Reason Specialty Diagnoses / Procedures [facility] [address] [place] [phone] Radiology Encounter Details Care Team Description Date Type Department Jona Doran, SEARCH STRATEGIST [address] [place] [address] 05/27/2016 [facility] rvices Encounter [place] [address] [place] [address] Social History Date Tobacco Use [...] Package 0 (ACCU-CHEK ACTIVE TEST) pm prn [facility] 12/29/2007 BETIMOL 0.5 % OP Drop Administer 1 0 Drop in both eyes 2 times daily. 05/12/2016 06/15/2016 LORazepam (ATIVAN) 1 mg TAKE [...] by mouth nightly as needed for Insomnia. 02/03/2016 08/06/2016 clopidogrel (PLAVIX) 75 Take 1 [...] 50 Administer 2 16 Gram 5 mcg/spray [place], Sprays in Suspension each nostril daily.. 2015 [...] Associated Diag nosis XR FINGER(S) RIGHT Routine 05/27/2016 Closed nond isplaced 9:57 AM CDT fracture of middle phalanx of right little finger, initial encounter documented in this encounter Results [...] diffuse interphalangeal joint space Procedure Note Interface, [facility] Incoming Radiology Results - 05/27/2016 10:15 [...] phalanx of right little finger, initial encounter documented in this encounter
--- OUTSIDE RECORDS SUMMARY | 2020-03-24 14:08 | XMS REPORT | Encounter Summary ---
Author Author [facility] Organization [facility] Address Unknown Phone Unavailable Care Team Providers Care Office Machine Technician Name Role Phone Claus Couch MD PCP Reason for Visit * Reason Comments Medication Refill Encounter Details Care Team Description Date Type Department Claus Couch MD [address] [place] [address] 04/27/2016 Refill [facility] Primar y Care [place] [address] [place] [address] Social History Date Tobacco Use [...]
--- OUTSIDE RECORDS SUMMARY | 2020-03-24 14:08 | XMS REPORT | Encounter Summary ---
Author Author [facility] Organization [facility] Address Unknown Phone Unavailable Care Team Providers Care Marker Machine Name Role Phone Claus Couch MD PCP Reason for Referral * Outpatient Services (Routine) Referred By Contact Referred To Contact Status Reason Specialty Diagnoses / Procedures Walter Oconnor MD [address] [facility] 320[address] [place] [phone] [facility] Ultrasound [address] [place] [phone] Closed Radiology Diagnoses Essential hypertension Coronary artery disease involving [place] coronary artery of [place] heart without angina pectoris P rocedures ECHO COMPLETE Encounter Details Care Team Description Date Type Department Walter Oconnor MD [address] [facility] [address] [place] [phone] Essential hypertension (Primary Dx); Coronary artery disease involving [place] coronary artery of [place] heart without angina pectoris 02/19/2016 Orders Only [facility] [address] [place] [address] Social History Date Tobacco Use [...] of this encounter Results * ECHO COMPLETE (03/02/2016 [...] disease involving nativ e coronary artery of [place] heart without angina pectoris documented in this encounter
--- OUTSIDE RECORDS SUMMARY | 2020-03-24 14:08 | XMS REPORT | Encounter Summary ---
Author Author [facility] Organization [facility] Address Unknown Phone Unavailable Care Team Providers Care Photographer Lithographic Name Role Phone Claus Couch MD PCP Encounter Details Care Team Description Date Type Department Jona Doran, CIGAR MACHINE FEEDER [address] [place] [address] 05/19/2016 Hospital [facility] Imaging Se rvices Encounter [place] [address] [place] [address] Social History Date Tobacco Use [...] 49 Administer 2 16 Gram 5 mcg/spray [place], Sprays in Suspension each nostril daily.. 2015 [...] Associated Diag nosis XR FINGER(S) RIGHT Routine 05/19/2016 Finger inju ry, right, 3:49 PM CDT initial encounter documented in this encounter Results * XR FINGER(S) RIGHT (05/19/2016 3:49 PM CDT) Specimen Impressions Performed At IMPRESSION: Old boxer's fracture distal fifth metacar pal with volar angulation INTERFACE SYSTEM of the distal fracture fragment. Profound osteopenic changes a re noted with an oblique lucency in the middle phalanx is seen in the lateral view suggesting a subtle fr acture of indeterminate age. I would favor a more subacute fracture but correlate with history sug gested. No other acute fracture seen. Electronically Signed By: Oliverio rivera MD, Signed On: 05/19/2016 4:19 PM Narrative Performed At RADIOLOGIC EXAM: Right fifth finger, 5 views INTERFA CE SYSTEM INDICATIONS: Finger injury COMPARISON: 03/26/2015 FINDINGS: Marked osteopenic changes are seen with old fracture deformity consistent with an old healed boxer's fracture of the distal fifth me tacarpal with full are angulation of the distal fracture fragment. Interphalangeal joint degenerative lewis ges are seen with some deformity of the middle and proximal aspect of the middle phalanx best seen on the lateral view with a subtle lucency. Findings are compatible with a subtle fracture of indeterminate age though I suspect this may be most likely subacute in age. Followup could be utilized. Correlation with site of pain is recommended. Procedure Note Interface, [facility] Incoming Radiology Results - 05/19/2016 4:23 PM CDT RADIOLOGIC EXAM: Right fifth finger, 5 views INDICATIONS: Finger injury COMPARISON: 03/26/2015 FINDINGS: Marked osteopenic changes are seen with old fracture deformity consistent with an old healed boxer's fracture of the distal fifth metacarpal with full are angulation of the distal fracture fragment. Interphalangeal joint degenerative changes are seen with some deformity of the middle and proximal aspect of the middle phalanx best seen on the lateral view with a subtle lucency. Findings are compatible with a subtle fracture of indeterminate age though I suspect this may be most likely subacute in age. Followup could be utilized. Correlation with site of pain is recommended. IMPRESSION IMPRESSION: Old boxer's fracture distal fifth metacarpal with volar angulation of the distal fracture fragment. Profound osteopenic changes are noted with an oblique lucency in the middle phalanx is seen in the lateral view suggesting a subtle fracture of indeterminate age. I would favor a more subacute fracture but correlate with history suggested. No other acute fracture seen. Electronically Signed By: Oliverio Arreguin MD, Signed On: 05/19/2016 4:19 PM Performing Organization Address City/State/Zipcode Ph one Number INTERFACE SYSTEM INTERFACE SYSTEM Refer to clinic/hospital department documented in this encounter Visit Diagnoses Diagnosis Finger injury, right, initial encounter documented in this encounter
--- OUTSIDE RECORDS SUMMARY | 2020-03-24 14:08 | XMS REPORT | Encounter Summary ---
Author Author [facility] Organization [facility] Address Unknown Phone Unavailable Care Team Providers Care Wood Panel Inspector Name Role Phone Claus Couch MD PCP Encounter Details Care Team Description Date Type Department Claus Couch MD [address] [place] [address] 03/05/2016 Abstract [facility] Primar y Care [place] [address] [place] [address] Social History Date [...]
--- OUTSIDE RECORDS SUMMARY | 2020-03-24 14:08 | XMS REPORT | Encounter Summary ---
Author Author [facility] Organization [facility] Address Unknown Phone Unavailable Care Team Providers Care Line Maintenance Technician Name Role Phone Claus Couch MD PCP Encounter Details Care Team Description Date Type Department Solomon Doranory Jayda, PROJECT ARCHITECT [address] [place] [address] Finger injury, right, initial encounter (Primary Dx) 05/19/2016 Orders Only [facility] Orth[facility] [address] [address] Social History Date Tobacco Use [...] of pain is recommended. Procedure Note Interface, [facility] Incoming Radiology Results - 05/19/2016 4:23 [...]
--- OUTSIDE RECORDS SUMMARY | 2020-03-24 14:09 | XMS REPORT | Encounter Summary ---
Author Author [facility] Organization [facility] Address Unknown Phone Unavailable Care Team Providers Care School Health Aide Name Role Phone Claus Couch MD PCP Reason for Visit * Reason Comments Medication Refill Encounter Details Care Team Description Date Type Department Shahram Mccallum MD NO ADDRESS ON FILE 12/16/2015 Refill [facility] Primar [address] [id number] Social History Date Tobacco Use Types Packs/Day [...]
--- OUTSIDE RECORDS SUMMARY | 2020-03-24 14:09 | XMS REPORT | Encounter Summary ---
Author Author [facility] Organization [facility] Address Unknown Phone Unavailable Care Team Providers Care Cake Stripper Name Role Phone Claus Couch MD PCP Encounter Details Care Team Description Date Type Department 11/30/2015 Emergency [facility] Emergency Department [address] [address] Social History Date Tobacco Use [...] Drop in both eyes 2 times daily. 11/27/2015 07/15/2017 NITROSTAT 0.4 mg Tablet, DISSOLVE 1 25 Tablet 0 Sublingual TABLET UNDER TONGUE EVERY 5 MINUTES NEEDED FOR CHEST PAIN. DO NOT EXCEED 3 DOSES. 11/26/2015 02/17/2016 temazepam (RESTORIL) 15 Take 1 30 Capsule 2 mg capsule Capsule (15 mg) by mouth nightly as needed for Insomnia. 10/28/2015 04/27/2016 ramipril (ALTACE) 10 mg Take 1 Cap by 90 Capsule 1 capsule mouth daily. 10/14/2015 04/07/2016 pioglitazone (ACTOS) 30 Take 1 Tab by 90 Tablet 1 mg tablet mouth daily.. 10/07/2015 07/07/2017 fluticasone (FLONASE) 50 Administer 2 16 Gram 5 mcg/spray [place], Sprays in Suspension each nostril daily.. 09/23/2015 03/23/2016 simvastatin (ZOCOR) 40 mg TAKE ONE 90 Tablet 1 tablet TABLET (40MG) BY MOUTH EVERY DAY IN THE EVENING 09/23/2015 03/23/2016 fenofibrate Take 1 Tab by 30 Tablet 5 nanocrystallized (TRICOR) mouth daily 145 mg tablet with supper. 09/18/2015 01/14/2016 LORazepam (ATIVAN) 1 mg TAKE ONE 60 Tablet 3 tablet TABLET BY MOUTH 2 TIMES A DAY.. 09/09/2015 03/05/2016 isosorbide mononitrate TAKE ONE 60 [...] Break-Through . Max Daily Amount: 6 Tablet 08/19/2015 02/24/2016 loratadine (CLARITIN) 10 Take 1 Tab by 30 Tablet 5 mg tablet mouth daily. 08/16/2015 09/04/2016 FLOVENT HFA 110 Take 1 Puff 12 Gram 5 mcg/actuation HFA Aerosol by inhalation Inhaler 2 times daily. 08/16/2015 07/07/2017 PROAIR HFA 90 Take 2 Puffs 8.5 Gram 5 mcg/actuation inhaler by inhalation every 4 hours as needed for Shortness of Breath. 07/22/2015 01/14/2016 NEXIUM 40 mg Capsule, Take 1 Cap by 30 Capsule 5 Delayed Release(E.C.) mouth daily before breakfast. 07/16/2015 01/06/2016 ZETIA 10 mg tablet Take 1 Tab by 30 Tablet 5 mouth daily at bedtime. 07/04/2015 12/03/2015 cephALEXin (KEFLEX) 500 Take 1 28 Capsule 0 mg capsule Capsule (500 mg) by mouth 4 times daily for 7 days. 06/24/2015 12/16/2015 OLANZapine (ZYPREXA) 2.5 Take 1 Tab by 30 Tab 5 mg tablet mouth daily at bedtime. 06/10/2015 12/02/2015 bethanechol (URECHOLINE) TAKE ONE 120 Tab 2 25 mg tablet TABLET BY MOUTH FOUR TIMES A DAY 06/10/2015 12/09/2015 FLUoxetine (PROZAC) 20 mg TAKE 2 60 Cap 5 capsule CAPSULES BY MOUTH EVERY DAY. 06/10/2015 12/09/2015 clopidogrel (PLAVIX) 75 Take 1 Tab by 30 Tab 5 mg Tablet mouth daily. 06/03/2015 12/02/2015 tamsulosin (FLOMAX) 0.4 TAKE ONE 30 Cap 5 mg capsule CAPSULE BY MOUTH EVERY DAY 30 MINUTES AFTER SUPPER 06/03/2015 12/09/2015 traZODone (DESYREL) 50 mg Take 1 Tab by 30 Tab 5 tablet mouth daily at bedtime. 11/27/2016 naproxen sodium 220 mg Take 440 mg 0 Oral Cap by mouth daily . 09/10/2010 04/26/2018 MULTIVITAMIN PO Take 1 Tab by 0 mouth daily with lunch. documented as of this encounter Plan of Treatment Not on filedocumented as of this encounter Visit Diagnoses Not on filedocumented in this encounter
--- OUTSIDE RECORDS SUMMARY | 2020-03-24 14:09 | XMS REPORT | Encounter Summary ---
Author Author [facility] Organization [facility] Address Unknown Phone Unavailable Care Team Providers Care Lapping Machine Operator Name Role Phone Claus Couch MD PCP Reason for Visit * Reason Comments Medication Refill Encounter Details Care Team Description Date Type Department Shahram Mccallum MD NO ADDRESS ON FILE 12/02/2015 Refill [facility] Primar [address] [phone] Social History Date Tobacco Use Types Packs/Day [...]
--- OUTSIDE RECORDS SUMMARY | 2020-03-24 14:09 | XMS REPORT | Encounter Summary ---
Author Author [facility] Organization [facility] Address Unknown Phone Unavailable Care Team Providers Care Engineering Specialist Name Role Phone Claus Couch MD PCP Reason for Visit * Reason Comments Medication Refill Encounter Details Care Team Description Date Type Department Claus Couch MD [address] [place] [address] 01/14/2016 Refill [facility] Primar y Care [place] [address] [place] [address] Social History Date Tobacco Use [...]
--- OUTSIDE RECORDS SUMMARY | 2020-03-24 14:09 | XMS REPORT | Encounter Summary ---
Author Author [facility] Organization [facility] Address Unknown Phone Unavailable Care Team Providers Care Sweep Press Operator Name Role Phone Claus Couch MD PCP Reason for Visit * Reason Comments Medication Refill Encounter Details Care Team Description Date Type Department Neyda Redmond MD [address] [place] [address] 12/02/2015 Refill [facility] Primar y Care [address] [address] Social History Date Tobacco Use [...]
--- OUTSIDE RECORDS SUMMARY | 2020-03-24 14:09 | XMS REPORT | Encounter Summary ---
Author Author [facility] Organization [facility] Address Unknown Phone Unavailable Care Team Providers Care Strategic Planning Specialist Name Role Phone Claus Couch MD PCP Reason for Visit * Reason Comments Follow Up fu with labs Encounter Details Care Team Description Date Type Department Claus Couch MD [address] [place] [address] Type 2 diabetes mellitus without complic ation (Primary Dx); Mixed hyperlipidemia; Seizure disorder; Essential hypertension 01/29/[address] [facility] Primar y Care [place] [address] [place] [address] Social History Date Tobacco Use [...] Reading Time Taken Comments Vital Sign 120/60 01/29/2016 9:00 AM CDT Blood Pressure - - Pulse - - Temperature - - Respiratory Rate - - Oxygen Saturation - - Inhaled Oxygen Concentration 85.7 kg (189 lb) 01/29/2016 9:00 AM CDT Weight 167.6 cm (5' 6") 01/29/2016 9:00 AM CDT Height 30.51 01/29/2016 9:00 AM CDT Body Mass Index documented in this encounter Patient Instructions * Patient Instructions* Claus Couch MD - 01/29/2016 8:49 AM CDT Hospital Encounter on 01/29/16 (from the past 168 hour(s)) CBC WITH DIFFERENTIAL Collection Time: 01/29/16 8:32 AM Result Value Ref Range WBC 11.1 (H) 2.9-11.0 K/uL RBC 5.16 4.15-6.03 M/uL HEMOGLOBIN 15.2 13.8-17.4 g/dL HEMATOCRIT 44.1 38.6-54.6 % MCV 85.6 82.4-103.2 fL MCH 29.5 26.2-32.6 pg MCHC 34.5 30.2-35.0 g/dL RDW 13.7 11.5-13.9 % PLATELETS 350 137-410 K/uL MPV 7.1 (L) 7.4-11.9 fL NEUTROPHILS 69 43-73 % LYMPHOCYTES 23 19-47 % MONOCYTES 6 3-9 % EOSINOPHILS 2 0-6 % BASOPHILS 0 0-1 % NEUTROPHIL ABSOLUTE 7.67 (H) 1.30-7.60 K/uL LYMPHOCYTE ABSOLUTE 2.57 0.60-4.90 K/uL MONOCYTE ABSOLUTE 0.62 0.10-0.90 K/uL EOSINOPHIL ABSOLUTE 0.23 0.00-0.40 K/uL BASOPHILS ABSOLUTE 0.02 0.00-0.10 K/uL COMPREHENSIVE METABOLIC PANEL Collection Time: 01/29/16 8:32 AM Result Value Ref Range SODIUM 134 (L) 136-145 mmol/L POTASSIUM 4.0 3.5-5.1 mmol/L CHLORIDE 95 (L) 98-107 mmol/L CO2 26 22-29 mmol/L CALCIUM 9.4 8.8-10.2 mg/dL BUN 13 8-23 mg/dL CREATININE 0.82 0.67-1.17 mg/dL GLUCOSE 178 (H) 70-100 mg/dL TOTAL PROTEIN 7.0 6.6-8.7 g/dL ALBUMIN 4.4 3.5-5.2 g/dL BILIRUBIN TOTAL 0.3 <=1.2 mg/dL ALKALINE PHOSPHATASE 54 40-129 U/L AST 16 <=41 U/L ALT 15 10-50 U/L GFR >60 >=60 mL/min/1.73 sq meter GFR, >60 >=60 mL/min/1.73 sq meter ANION GAP 13 4-20 mmol/L HEMOGLOBIN A1C Collection Time: 01/29/16 8:32 AM Result Value Ref Range HEMOGLOBIN A1C 6.5 (H) 4.8-5.9 % EST. AVG GLUCOSE, A1C 140 mg/dL LIPID PANEL Collection Time: 01/29/16 8:32 AM Result Value Ref Range CHOLESTEROL 198 <200 mg/dL TRIGLYCERIDE 454 (H) <150 mg/dL HDL 49 40-59 mg/dL LDL CALCULATED <100 mg/dL NON-HDL CHOLESTEROL 149 (H) <130 mg/dL Narrative TOTAL CHOLESTEROL mg/dL Desirable <200 Borderline high 200-239 High >=240 TRIGLYCERIDES mg/dL Normal <150 Borderline high 150-199 High 200-499 Very high >=500 HDL CHOLESTEROL mg/dL Low <40 Normal 40-59 Desirable >=60 LDL CHOLESTEROL mg/dL Optimal <100 Low risk 100-129 Borderline high 130-159 High 160-189 Very high >=190 NON HDL CHOLESTEROL mg/dL Optimal <130 Near Optimal 130-159 Borderline High 160-189 High 190-219 Very high >=220 Based on AHA/NCEP Guidelines *Note: Due to a large number of results and/or encounters for the requested time period, some results have not been displayed. A complete set of results can be found in Results Review. documented in this encounter Progress Notes * Claus Couch MD - 01/29/2016 8:49 AM CDT Oliverio Dalton is a 65 y.o. [...] the above mentioned OBJECTIVE: Physical Exam: BP 120/60 mmHg | Ht 5' 6" (1.676 m) | Wt 85.73 kg (189 lb) | BMI 30.52 kg/m2 General appearance: alert, in no distress [...] Lab Results Component Value Date/Time SODIUM 133* 08/26/2015 08:48 AM POTASSIUM 4.0 08/26/2015 08:48 AM CHLORIDE 98 08/26/2015 08:48 AM CO2 27 08/26/2015 08:48 AM CALCIUM 9.3 08/26/2015 08:48 AM BUN 19 08/26/2015 08:48 AM CREATININE 0.88 08/26/2015 08:48 AM GLUCOSE 163* 08/26/2015 08:48 AM TOTAL PROTEIN 7.5 08/26/2015 08:48 AM ALBUMIN 4.0 08/26/2015 08:48 AM BILIRUBIN TOTAL 0.3 08/26/2015 08:48 AM ALKALINE PHOSPHATASE 80 08/26/2015 08:48 AM AST 17 08/26/2015 08:48 AM ALT 27 08/26/2015 08:48 AM ANION GAP 8 08/26/2015 08:48 AM BUN/CREAT RATIO 19.8 12/02/2012 09:43 PM CHOLESTEROL 148 08/26/2015 08:48 AM HDL 45 08/26/2015 08:48 AM LDL CALCULATED 52 08/26/2015 08:48 AM LDL CHOLESTEROL, DIRECT 125 12/10/2011 09:05 AM TRIGLYCERIDE 254* 08/26/2015 08:48 AM HEMOGLOBIN A1C 6.2* 08/26/2015 08:48 AM TSH 1.69 10/01/2006 05:40 AM ASSESSMENT: Encounter Diagnoses Name Primary? Type 2 diabetes mellitus without complication Yes Mixed hyperlipidemia PLAN: Orders Placed This Encounter CBC with DIFFERENTIAL ([facility]) CMP ([facility]) HEMOGLOBIN A1C ([facility]) LIPID PANEL ([facility]) follow up in 3 months current treatment [...] of this encounter Results * HEMOGLOBIN A1C (07/31/2016 8:24 AM CDT) HEMOGLOBIN A1C 6.1 (H) 4.8 - 5.9 % [facility] [place] EST. AVG 128 mg/dL [facility] GLUCOSE, A1C [facility] [place] Specimen Blood Performing Organization Address City/State/[facility] [place] Ph one Number [facility] CLIA# [id number] [place] [address] [place] [address] [facility] * COMPREHENSIVE METABOLIC PANEL (07/31/2016 8:24 AM CDT) SODIUM 133 (L) 136 - 145 mmol/L [facility] [place] POTASSIUM 4.2 3.5 - 5.1 mmol/L [facility] [place] CHLORIDE 94 (L) 98 - 107 mmol/L [facility] [place] CO2 22 22 - 29 mmol/L [facility] [...] meter LABORATORY eGFR has not been validated [facility] for use in the elderly [...] result. GFR, >60 >=60 mL/min/1.73 sq [facility] [place] ANION GAP 17 4 - 20 mmol/L [facility] [place] Specimen Blood Performing Organization Address [facility] [place] [facility] CLIA# [id number] [place] [address] [address] * LIPID PANEL (07/31/2016 8:24 AM CDT) CHOLESTEROL 176 <200 mg/dL [facility] [place] TRIGLYCERIDE 316 (H) <150 mg/dL [facility] - [place] HDL 47 40 - 59 mg/dL [facility] [place] LDL CALCULATED 66 <100 mg/dL [facility] [place] NON-HDL 129 <130 mg/dL [facility] CHOLESTEROL [facility] - [place] Specimen Blood Narrative Performed At TOTAL CHOLESTEROL mg/dL [facility] Desirable <200 SERVICES [facility] Borderline high 200-239 [place] High >=240 TRIGLYCERIDES mg/dL Normal <150 Borderline [...] for Lipid Panels (NCEP/AMA) Performing Organization Address [facility] [place] [facility] CLIA# [id number] [place] [address] [address] * CBC WITH DIFFERENTIAL (07/31/2016 8:24 AM CDT) WBC 8.5 2.9 - 11.0 K/uL [facility] [place] RBC 4.77 4.15 - 6.03 M/uL [facility] [place] HEMOGLOBIN 14.4 13.8 - 17.4 g/dL [facility] [place] HEMATOCRIT 41.1 [...] MPV 7.3 (L) 7.4 - 11.9 fL [facility] [place] NEUTROPHILS 67 [...] Ph one Number [facility] CLIA# [id number] [place] [address] [place] [address] [place] [address] * PHENYTOIN LEVEL, TOTAL (01/29/2016 8:32 AM CDT) PHENYTOIN TOTAL 11.2 10.0 - 20.0 ug/mL [facility] [place] Specimen Blood Performing Organization Address [facility] [place] [facility] CLIA# [id number] [place] [address] * LIPID PANEL (01/29/2016 8:32 AM CDT) CHOLESTEROL 198 <200 mg/dL [facility] [place] TRIGLYCERIDE 454 (H) <150 mg/dL [facility] [place] HDL 49 40 - 59 mg/dL [facility] [place] LDL CALCULATED Comment: Calculated LDL is not <100 mg/dL [facility] accurate when the Triglyceride LABORATORY value exceeds 400. SERVICES - [place] NON-HDL 149 (H) <130 mg/dL [facility] CHOLESTEROL [facility] - [place] Specimen Blood Narrative Performed At TOTAL CHOLESTEROL mg/dL [facility] Desirable <200 SERVICES - [facility] high 200-239 [place] High >=240 TRIGLYCERIDES mg/dL Normal <150 Borderline high 150-199 High 200-499 Very high >=500 HDL CHOLESTEROL mg/dL Low <40 Normal 40-59 Desirable >=60 LDL CHOLESTEROL mg/dL Optimal <100 Low risk 100-129 Borderline high 130-159 High 160-189 Very high >=190 NON HDL CHOLESTEROL mg/dL Optimal <130 Near Optimal 130-159 Borderline High 160-189 High 190-219 Very high >=220 Based on AHA/NCEP Guidelines Performing Organization Address [facility] one [facility] LABORATORY SERVICES CLIA# [id number] [place] [address] * HEMOGLOBIN A1C (01/29/2016 8:32 AM CDT) HEMOGLOBIN A1C 6.5 (H) 4.8 - 5.9 % [facility] [place] EST. AVG 140 mg/dL [facility] GLUCOSE, A1C [facility] - [place] Specimen Blood Performing Organization Address [facility] one [facility] LABORATORY SERVICES CLIA# [id number] [place] [address] * COMPREHENSIVE METABOLIC PANEL (01/29/2016 8:32 AM CDT) SODIUM 134 (L) 136 - 145 mmol/L [facility] - [facility] POTASSIUM 4.0 3.5 - 5.1 mmol/L [facility] [place] CHLORIDE 95 (L) 98 - 107 mmol/L [facility] [place] CO2 26 22 - 29 mmol/L [facility] CALCIUM 9.4 8.8 - 10.2 mg/dL [facility] - [facility] BUN 13 8 - 23 mg/dL [facility] CREATININE 0.82 0.67 - 1.17 mg/dL [facility] GLUCOSE 178 (H) 70 - 100 mg/dL [facility] [place] TOTAL PROTEIN 7.0 6.6 - 8.7 g/dL [facility] [place] ALBUMIN 4.4 3.5 - 5.2 g/dL [facility] - [facility] BILIRUBIN TOTAL 0.3 <=1.2 mg/dL [facility] ALKALINE 54 40 - 129 U/L [facility] PHOSPHATASE [facility] [place] AST 16 <=41 U/L [facility] [place] ALT 15 10 - 50 U/L [facility] [place] GFR >60 >=60 mL/min/1.73 sq [facility] Comment: meter LABORATORY eGFR has not been validated [facility] for use in the elderly [...] result. GFR, >60 >=60 mL/min/1.73 sq [facility] meter [facility] [place] ANION GAP 13 4 - 20 mmol/L [facility] [place] Specimen Blood Performing Organization Address City/State/[facility] Ph one Number [facility] CLIA# [id number] [place] [address] [place] [address] [place], [place] [address] * CBC WITH DIFFERENTIAL (01/29/2016 8:32 AM CDT) WBC 11.1 (H) 2.9 - 11.0 K/uL [facility] [place] RBC 5.16 4.15 - 6.03 M/uL [facility] [place] HEMOGLOBIN 15.2 13.8 - 17.4 g/dL [facility] [place] HEMATOCRIT 44.1 38.6 - 54.6 % [facility] [place] MCV 85.6 82.4 - 103.2 fL [facility] [place] MCH 29.5 26.2 - 32.6 pg [facility] [place] MCHC 34.5 30.2 - 35.0 g/dL [facility] [place] RDW 13.7 11.5 - 13.9 % [facility] [place] PLATELETS 350 137 - 410 K/uL [facility] [place] MPV 7.1 (L) 7.4 - 11.9 fL [facility] [place] NEUTROPHILS 69 43 - 73 % [facility] [place] LYMPHOCYTES 23 19 - 47 % [facility] [place] MONOCYTES 6 3 - 9 % [facility] [place] EOSINOPHILS 2 0 - 6 % [facility] [place] BASOPHILS 0 0 - 1 % [facility] [place] NEUTROPHIL 7.67 (H) 1.30 - 7.60 K/uL [facility] [place] LYMPHOCYTE 2.57 0.60 - 4.90 K/uL [facility] [place] MONOCYTE 0.62 0.10 - 0.90 K/uL [facility] [place] EOSINOPHIL 0.23 0.00 - 0.40 K/uL [facility] [place] BASOPHILS 0.02 0.00 - 0.10 K/uL [facility] [place] Specimen Blood Performing Organization Address City/State/Zipcode Ph one Number [facility] CLIA# [id number] [place] [address] [place] [address] [place] [address] BLVD documented in this encounter Visit Diagnoses Diagnosis Type 2 diabetes mellitus without compli cation - Primary Mixed hyperlipidemia Seizure disorder Unspecified epilepsy without mention of intractable epilepsy Essential hypertension Unspecified essential hypertension documented in this encounter
--- OUTSIDE RECORDS SUMMARY | 2020-03-24 14:09 | XMS REPORT | Encounter Summary ---
Author Author [facility] Address Unknown Phone Unavailable Care Team Providers Care Student Success Coach Name Role Phone Claus Couch MD PCP Encounter Details Care Team Description Date Type Department Claus Couch MD [address] [place] [address] 01/16/2016 [facility] rvices Encounter [address] [address] Social History Date Tobacco Use [...] Drop in both eyes 2 times daily. 01/16/2016 01/23/2016 levofloxacin (LEVAQUIN) Take 1 Tablet 7 Tablet 0 500 mg tablet (500 mg) by mouth daily for 7 days. 01/16/2016 01/28/2016 predniSONE (DELTASONE) 10 Take 6 pills 42 Tablet 0 mg tablet on days 1-2, 5 on days 3-4, 4 days 5-6 Take 3 pills on days 7 and 8 Take 2 pills on days 9 and 10 Take 1 pill on days 11 and 12. 01/14/2016 07/15/2016 NEXIUM 40 mg Capsule, Take [...] 5 mg tablet mouth daily at bedtime. 12/09/2015 02/10/2016 FLUoxetine (PROZAC) 20 mg TAKE 2 60 Capsule 1 capsule CAPSULES BY MOUTH EVERY DAY. 12/09/2015 02/03/2016 clopidogrel (PLAVIX) 75 Take 1 Tab by 30 Tablet 1 mg Tablet mouth daily. 12/09/2015 03/02/2016 traZODone (DESYREL) 50 mg Take 1 Tab by 30 Tablet 3 tablet mouth daily at bedtime. 12/02/2015 03/30/2016 tamsulosin (FLOMAX) 0.4 TAKE ONE 30 Capsule 3 mg capsule CAPSULE BY MOUTH EVERY DAY 30 MINUTES AFTER SUPPER 12/02/2015 02/03/2016 bethanechol (URECHOLINE) TAKE ONE 120 Tablet 1 25 mg tablet TABLET BY MOUTH FOUR TIMES A DAY 11/30/2015 11/27/2016 mupirocin (BACTROBAN) 2 % Apply [...] 50 Administer 2 16 Gram 5 mcg/spray [place], Sprays in Suspension each nostril daily.. 09/23/2015 [...] Name Priority Date/Time Associated Diag nosis XR CHEST PA AND LATERAL 2 Routine 01/16/2016 COPD with exacerbation VW 2:29 PM DESKTOP MANAGER documented in this encounter Results * XR CHEST PA AND LATERAL (01/16/2016 2:29 PM DESKTOP MANAGER) Specimen Impressions Performed At IMPRESSION: INTERFACE SYSTEM PA and lateral chest demonstrate no acu te process. Electronically Signed By: Faraz Anaya MD, Signed On: 01/16/2016 2:55 PM Narrative Performed At Name: [facility] AGE: 65 years INTERFACE SYSTE M EXAM: Chest PA and lateral 2 views INDICATION: 65-year-old male with exacerbation of C OPD. COMPARISON: Prior chest performed October 17, 2014 . FINDINGS: The patient has undergone previous ster notomy and CABG. Our lateral chest view demonstrates mar kers in place at the graft sites. There are multiple stents overlying the heart. In particular there appear to be severa l stents associated with the grafts themselves. The pulmonary vascularity is within the upper range of normal. The lungs demonstrate diffuse mild to m oderate chronic changes. There is no acute chest process or effu sions. Procedure Note Sienna, Bong Aok Incoming Radiology Results - 01/16/2016 3:01 PM DESKTOP MANAGER Name: JONATHON DALTON AGE: 65 years EXAM: Chest PA and lateral 2 views INDICATION: 65-year-old male with exacerbation of [place] PD. COMPARISON: Prior chest performed October 17, 2014. FINDINGS: The patient has undergone previous sternotomy and CABG. Our lateral chest view demonstrates markers in place at the graft sites. There are multiple stents overlying the heart. In particular there appear to be several stents associated with the grafts themselves. The pulmonary vascularity is within the upper range of normal. The lungs demonstrate diffuse mild to moderate chronic changes. There is no acute chest process or effusions. IMPRESSION IMPRESSION: PA and lateral chest demonstrate no acute process. Electronically Signed By: Faraz Anaya MD, Signed On: 01/16/2016 2:55 PM Performing Organization Address City/State/Zipcode Ph one Number INTERFACE SYSTEM INTERFACE SYSTEM Refer to clinic/hospital department documented in this encounter Visit Diagnoses Diagnosis COPD with exacerbation Obstructive chronic bronchitis with exa cerbation documented in this encounter
--- OUTSIDE RECORDS SUMMARY | 2020-03-24 14:09 | XMS REPORT | Encounter Summary ---
Author Author [facility] Organization [facility] Address Unknown Phone Unavailable Care Team Providers Care Director Software Name Role Phone Claus Couch MD PCP Reason for Visit * Reason Comments Medication Refill Encounter Details Care Team Description Date Type Department Neyda Redmond MD [address] [place] [address] 12/09/2015 Refill [facility] Primar y Care [address] [address] Social History Date Tobacco Use [...]
--- OUTSIDE RECORDS SUMMARY | 2020-03-24 14:09 | XMS REPORT | Encounter Summary ---
Author Author [facility] Organization [facility] Address Unknown Phone Unavailable Care Team Providers Care Ekg Technician Name Role Phone Claus Couch MD PCP Reason for Visit * Reason Comments Medication Refill Encounter Details Care Team Description Date Type Department Shahram Mccallum MD NO ADDRESS ON FILE 11/27/2015 Refill [facility] Primar [address] [phone] Social History Date Tobacco Use Types Packs/Day [...]
--- OUTSIDE RECORDS SUMMARY | 2020-03-24 14:09 | XMS REPORT | Encounter Summary ---
Author Author [facility] Organization [facility] Address Unknown Phone Unavailable Care Team Providers Care Salon/Spa Manager Name Role Phone Claus Couch MD PCP Reason for Visit * Reason Comments Medication Refill Encounter Details Care Team Description Date Type Department Claus Couch MD [address] [place] [address] 01/22/2016 Refill [facility] Prim[facility] y [facility] [place] [address] [place] [address] Social History Date Tobacco Use [...]
--- OUTSIDE RECORDS SUMMARY | 2020-03-24 14:09 | XMS REPORT | Encounter Summary ---
Author Author [facility] Organization [facility] Address Unknown Phone Unavailable Care Team Providers Care Wind Turbine Technician Name Role Phone Claus Couch MD PCP Reason for Visit * Reason Comments Hand Injury ring finger injury on left hand, swollen and black and blue hit it on something 11/29/15 went to for this a nd go tetnaus shot Encounter Details Care Team Description Date Type Department Claus Couch MD [address] [place] [address] Cellulitis of finger of left hand (Prima ry Dx) 12/03/2015 Office Visit [facility] Primar y Care [place] [address] [place] [address] Social History Date Tobacco Use [...] Reading Time Taken Comments Vital Sign 118/62 12/03/2015 9:43 AM MFG ASSOC Blood Pressure - - Pulse 36.2 C (97.1 F) 12/03/2015 9:43 AM M[facility] ASSOC Temperature - - Respiratory Rate - - Oxygen Saturation - - Inhaled Oxygen Concentration 88 kg (194 lb) 12/03/2015 9:43 AM M[facility] ASSOC Weight 167.6 cm (5' 6") 12/03/2015 9:43 AM [facility] Height 31.31 12/03/2015 9:43 AM [facility] ASSOC Body Mass Index documented in this encounter Progress Notes * Claus Couch MD - 12/05/2015 9:48 AM [facility] HISTORY OF PRESENT ILLNESS Oliverio Dalton, a 65 y.o. male presents with a Chief Complaint of Hand Injury Subjective HPI Chief Complaint Patient presents with Hand Injury ring finger injury on left hand, swollen and black and blue hit it on somethin g 11/29/15 went to for this and go tetnaus shot the patient was reaching for something and cut finger has been having pain and erythema since that time Was in the Urgent Care and did get tetanus shot the patient with history of multiple allergies REVIEW OF SYSTEMS Review of Systems Constitutional: [...] Psychiatric/Behavioral: Negative for behavioral problems and agitation. Objective PHYSICAL EXAM BP 118/62 mmHg | Temp(Src) 97.1 F (36.2 C) (Tympanic) | Ht 5' 6" (1.676 m) | Wt 87.998 kg (194 lb) | BMI 31.33 kg/m2 Physical Exam Constitutional: He appears well-developed and well-nourished. HENT: Head: Normocephalic and atraumatic. Cardiovascular: Normal rate, regular rhythm, normal heart sounds and intact dist al pulses. Pulmonary/Chest: Effort normal and breath sounds normal. Abdominal: Soft. Bowel sounds are normal. Musculoskeletal: Hands: Assessment ASSESSMENT and PLAN: ICD-9-CM ICD-10-CM 1. Cellulitis of finger of left hand 681.00 L03.012 Orders Placed This Encounter cephALEXin (KEFLEX) 500 mg capsule Start on keflex as he has tolerated it in the past follow up if no improvement ASSOC documented in this encounter Plan of Treatment Not on filedocumented as of this encounter Visit Diagnoses Diagnosis Cellulitis of finger of left hand - Farhana sigrid Cellulitis and abscess of finger, unspe cified documented in this encounter
--- OUTSIDE RECORDS SUMMARY | 2020-03-24 14:09 | XMS REPORT | Encounter Summary ---
Author Author [facility] Organization [facility] Address Unknown Phone Unavailable Care Team Providers Care Paper Bag Making Machinist Name Role Phone Claus Couch MD PCP Reason for Visit * Reason Comments Medication Refill Encounter Details Care Team Description Date Type Department Shahram Mccallum MD NO ADDRESS ON FILE 12/09/2015 Refill [facility] Primar [address] [phone] Social History Date Tobacco Use Types Packs/Day [...]
--- OUTSIDE RECORDS SUMMARY | 2020-03-24 14:09 | XMS REPORT | Encounter Summary ---
Author Author [facility] Organization [facility] Address Unknown Phone Unavailable Care Team Providers Care Stuffed Casing Tier Name Role Phone Claus Couch MD PCP Reason for Visit * Reason Comments Medication Refill Encounter Details Care Team Description Date Type Department Claus Couch MD [address] [place] [address] 01/06/2016 Refill [facility] Primar y Care [place] [address] [place] [address] Social History Date Tobacco Use [...]
--- OUTSIDE RECORDS SUMMARY | 2020-03-24 14:09 | XMS REPORT | Encounter Summary ---
Author Author [facility] Organization [facility] Address Unknown Phone Unavailable Care Team Providers Care Toe Stripper Name Role Phone Claus Couch MD PCP Reason for Visit * Reason Comments Medication Problem Encounter Details Care Team Description Date Type Department Claus Couch MD [address] [place] [address] Medication Problem 12/04/2015 Telephone [facility] Primar y Care [place] [address] [place] [address] Social History Date Tobacco [...] encounter Miscellaneous Notes * Telephone Encounter - Bridger Moon - 12/04/2015 3:22 PM GAUGE AND WEIGH MACHINE OPERATOR Pt called stating he didn't know if he had caught something or if it was the med but he is sick to stomach. Dr Couch notified and states its not the med. Pt n otified E AND WEIGH MACHINE OPERATOR documented in this encounter Plan of Treatment Not on filedocumented as of this encounter Visit Diagnoses Not on filedocumented in this encounter
--- OUTSIDE RECORDS SUMMARY | 2020-03-24 14:09 | XMS REPORT | Encounter Summary ---
Author Author [facility] Organization [facility] Address Unknown Phone Unavailable Care Team Providers Care Trolley Operator Name Role Phone Claus Couch MD PCP Reason for Visit * Reason Comments Cough x 10 days Wheezing Encounter Details Care Team Description Date Type Department Claus Couch MD [address] [place] [address] COPD with exacerbation (Primary Dx) 01/16/2016 Office Visit [facility] Primar y Care [place] [address] [place] [address] Social History Date Tobacco Use [...] Reading Time Taken Comments Vital Sign 124/70 01/16/2016 1:57 PM DROP WIRE BUILDER Blood Pressure - - Pulse 36.3 C (97.4 F) 01/16/2016 1:57 PM DROP WIRE BUILDER Temperature - - Respiratory Rate - - Oxygen Saturation - - Inhaled Oxygen Concentration 89.8 kg (198 lb) 01/16/2016 1:57 PM DROP WIRE BUILDER Weight 167.6 cm (5' 6") 01/16/2016 1:57 PM DROP WIRE BUILDER Height 31.96 01/16/2016 1:57 PM DROP WIRE BUILDER Body Mass Index documented in this encounter Progress Notes * Claus Couch MD - 01/16/2016 4:48 PM DROP WIRE BUILDER HISTORY OF PRESENT ILLNESS Oliverio Dalton, a 65 y.o. male presents with a Chief Complaint of Cough and Wh eezing Subjective The history is provided by the patient. The medical record reflects the History of Present Illness as obtained by myself in discussion with the patient. Cough This is a new problem. The current episode started in the past 7 days. The probl em has been unchanged. The problem occurs constantly. The cough is productive of sputum. Associated symptoms include nasal congestion, rhinorrhea, shortness of breath and wheezing. Pertinent negatives include no chest pain, chills or fever. The symptoms are aggravated by exercise. He has tried a beta-agonist inhaler for the symptoms. The treatment provided mild relief. There is no history of asthma, bronchiectasis, bronchitis, COPD, emphysema, environmental allergies or pneum onia. Wheezing Severity: Moderate Severity compared to prior episodes: Similar Onset quality: Sudden Relieved by: Nothing Worsened by: Nothing tried Ineffective treatments: None tried Associated symptoms: cough, rhinorrhea and shortness of breath Associated symptoms: no chest pain, no chest tightness, no fatigue and no fever REVIEW OF SYSTEMS Review of Systems Constitutional: Negative for fever, chills, activity change, appetite change and fatigue. HENT: Positive for rhinorrhea. Negative for congestion, facial swelling, hearing loss and sneezing. Eyes: Negative for discharge and itching. Respiratory: Positive for cough, shortness of breath and wheezing. Negative for apnea, choking and chest tightness. Cardiovascular: Negative for chest pain and leg swelling. Gastrointestinal: Negative for vomiting, abdominal pain, diarrhea and abdominal distention. Genitourinary: Negative for hematuria, flank pain and difficulty urinating. Musculoskeletal: Negative for back pain. Skin: Negative for color change. Allergic/Immunologic: Negative for environmental allergies. Neurological: Negative for dizziness, syncope, facial asymmetry and numbness. Psychiatric/Behavioral: Negative for behavioral problems and agitation. Objective PHYSICAL EXAM BP 124/70 mmHg | Temp(Src) 97.4 F (36.3 C) | Ht 5' 6" (1.676 m) | Wt 89.812 kg (198 lb) | BMI 31.97 kg/m2 Physical Exam Constitutional: He appears well-developed [...] sounds and intact dist al pulses. Pulmonary/Chest: He is in respiratory distress. He has decreased breath sounds. He has wheezes. Abdominal: Bowel sounds are normal. He exhibits no distension and no mass. There is no tenderness. There is no rebound and no guarding. Assessment ASSESSMENT and PLAN: ICD-9-CM ICD-10-CM 1. COPD with exacerbation 491.21 J44.1 XR CHEST PA AND LATERAL Orders Placed This Encounter XR CHEST PA AND LATERAL levofloxacin (LEVAQUIN) 500 mg tablet predniSONE (DELTASONE) 10 mg tablet Will get xr today start on the above WIRE BUILDER documented in this encounter Plan of Treatment Not on filedocumented as of this encounter Results * XR CHEST PA AND LATERAL (01/16/2016 2:29 PM DROP WIRE BUILDER) Specimen Impressions Performed At IMPRESSION: INTERFACE SYSTEM PA and lateral chest demonstrate no acu te process. Electronically Signed By: Faraz Anaya MD, Signed On: 01/16/2016 2:55 PM Narrative Performed At Name: [facility] AGE: 65 years INTERFACE SYSTE M [...] chest process or effu sions. Procedure Note Interface, Bong Aok Incoming Radiology Results - 01/16/2016 3:01 PM DROP WIRE BUILDER Name: OLIVERIO DALTON AGE: 65 years EXAM: Chest PA [...] encounter Visit Diagnoses Diagnosis COPD with exacerbation - Primary Obstructive chronic bronchitis with exa cerbation documented in this encounter
--- OUTSIDE RECORDS SUMMARY | 2020-03-24 14:09 | XMS REPORT | Encounter Summary ---
Author Author [facility] Organization [facility] Address Unknown Phone Unavailable Care Team Providers Care Psychic Reader Name Role Phone Claus Couch MD PCP Reason for Visit * Reason Comments Hand Injury left ring finger on 11/29/15 Encounter Details Care Team Description Date Type Department Macy Vaughn, [facility] [address] [place] [address] Finger pain, left (Primary Dx); Cellulitis of finger of left hand; Need for tetanus booster 11/30/2015 [facility] [address] [place] [address] Social History Date Tobacco Use [...] Signs Reading Time Taken Comments Vital Sign 144/64 11/30/2015 4:28 PM EXECUTIVE TEAM LEADER Blood Pressure - - Pulse 37.1 C (98.8 F) 11/30/2015 4:28 PM EXECUTIVE TEAM LEADER Temperature - - Respiratory Rate - - Oxygen Saturation - - Inhaled Oxygen Concentration 89.4 kg (197 lb) 11/30/2015 4:28 PM EXECUTIVE TEAM LEADER Weight 167.6 cm (5' 6") 11/30/2015 4:28 PM EXECUTIVE TEAM LEADER Height 31.8 11/30/2015 4:28 PM EXECUTIVE TEAM LEADER Body Mass Index documented in this encounter Patient Instructions * Patient Instructions* Macy Vaughn NP - 11/30/2015 5:06 PM EXECUTIVE TEAM LEADER Finger Fracture: Care Instructions Your Care Instructions Breaks in the bones of the finger usually heal well in about 3 to 4 weeks. The p ain and swelling from a broken finger can last for weeks. But it should steadily improve, starting a few days after you break it. It is very important that you wear and take care of the cast or splint exactly a s your doctor tells you to so that your finger heals properly and does not end u p crooked. Wearing a splint may interfere with your normal activities. Ask for h elp with daily tasks if you need it. You heal best when you take good care of yourself. Eat a variety of healthy food s, and don't smoke. Follow-up care is a cedeno part of your treatment and safety. Be sure to make and g o to all appointments, and call your doctor if you are having problems. It's als o a good idea to know your test results and keep a list of the medicines you joaquín e. How can you care for yourself at home? If your doctor put a splint on your finger, wear the splint exactly as direct ed. Do not remove it until your doctor says that you can. Keep your hand raised above the level of your heart as much as you can. This will help reduce swelling. Put ice or a cold pack on your finger for 10 to 20 minutes at a time. Try to do this every 1 to 2 hours for the next 3 days (when you are awake) or until the swelling goes down. Put a thin cloth between the ice and your skin. Keep the sp lint dry. Be safe with medicines. Take pain medicines exactly as directed. If the doctor gave you a prescription medicine for pain, take it as prescribe d. If you are not taking a prescription pain medicine, ask your doctor if you ca n take an [id number]-[id number] medicine. When should you call for help? Call 911 anytime you think you may need emergency care. For example, call if: Your finger is cool or pale or changes color. Call your doctor now or seek immediate medical care if: Your pain gets much worse. You have tingling, weakness, or numbness in your finger. You have signs of infection, such as: Increased pain, swelling, warmth, or redness. Red streaks leading from the area. Pus draining from the area. Swollen lymph nodes in your neck, armpits, or groin. A fever. Watch closely for changes in your health, and be sure to contact your doctor if: Your finger is not steadily improving. Where can you learn more? Go to http://www.[employer].net/patiented. Enter I742 in the search box to learn more about "Finger Fracture: Care Instruct ions." Current as of: March 29, 2015 Content Version: 107 [id number] [employer]. Care instructions adapted under license b y your healthcare professional. If you have questions about a medical condition or this instruction, always ask your healthcare professional. [employer], [facility] orated disclaims any warranty or liability for your use of this information. UTIVE TEAM LEADER documented in this encounter Progress Notes * Macy Vaughn NP - 11/30/2015 4:44 PM EXECUTIVE TEAM LEADER HISTORY OF PRESENT ILLNESS Oliverio Dalton, a 65 y.o. male presents with a Chief Complaint of Hand Injury Subjective HPI Presents with c/o pain and swelling in the left ring finger. Symptoms began 2 d ays ago when got up at 4 am to use the bathroom and then walked outside to turn off his basement light and jammed the finger on the concrete path when he bent d own to tack picker the cellar door. Associated symptoms include bruising. Pt denies other injuries. Symptoms are worsened by movement and improved by nothing. Perti nent history includes tetanus up to date. History Substance Use Topics Smoking status: Current Every Day Smoker -- 1.00 packs/day for 40 years Types: Cigarettes Last Attempt to Quit: 03/08/1995 Smokeless tobacco: Never Used Comment: Restarted smoking cigarettes 1 pack every two weeks since 05/2013. Alcohol Use: No Past Medical History Diagnosis Date Wrist sprain 08/10 Rt. Contusion, back 08/16/03 Fall Cataract Unspecified disease of respiratory system Glaucoma Asthma Diabetes Seizure disorder last seizure 2010 Unspecified disorder of lipoid metabolism Coronary artery disease Chronic ischemic heart disease, unspecified Unspecified essential hypertension COPD (chronic obstructive pulmonary disease) Anxiety .getlabs[24h REVIEW OF SYSTEMS Review of Systems Musculoskeletal: Positive for joint swelling and arthralgias. Skin: Positive for wound. All other systems reviewed and are negative. Objective PHYSICAL EXAM BP 144/64 mmHg | Temp(Src) 98.8 F (37.1 C) (Tympanic) | Ht 5' 6" (1.676 m) | Wt 89.359 kg (197 lb) | BMI 31.81 kg/m2 Physical Exam Constitutional: He is oriented to person, place, and time. He appears well-devel oped and well-nourished. No distress. HENT: Head: Atraumatic. Cardiovascular: Normal rate. Pulmonary/Chest: Effort normal. Musculoskeletal: Left hand: He exhibits decreased range of motion and tenderness. Hands: Area of erythema and induration over the dorsal distal left ring finger with sma ll superficial pustule Palmar surface is bruised The is not nail involvement or laceration Neurological: He is alert and oriented to person, place, and time. Skin: Skin is warm and dry. Psychiatric: He has a normal mood and affect. Assessment ASSESSMENT and PLAN: ICD-9-CM ICD-10-CM 1. Finger pain, left 729.5 M79.645 2. Cellulitis of finger of left hand 681.00 L03.012 mupirocin (BACTROBAN) 2 % Oi ntment 3. Need for tetanus booster V03.7 Z23 TDAP VACCINE >7 YO IM Finger splint applied TDAP given Pt has several antibiotic allergies and intolerances with long list of medicatio ns and chronic health problems. Wound appears very superficial at this point. Wi ll treat wound with local wound care (wash with mild soap and water, warm soaks) , topical bactroban and early f/u with Dr Couch for consideration of antibioti c if not improving. Finger splint applied Wound washed, antibiotic ointment and bandaid applied UTIVE TEAM LEADER documented in this encounter Plan of Treatment Not on filedocumented as of this encounter Visit Diagnoses Diagnosis Finger pain, left - Primary Pain in limb Cellulitis of finger of left hand Cellulitis and abscess of finger, unspe cified Need for tetanus booster Need for prophylactic vaccination with tetanus toxoid alone documented in this encounter
--- OUTSIDE RECORDS SUMMARY | 2020-03-24 14:09 | XMS REPORT | Encounter Summary ---
Author Author [facility] Organization [facility] Address Unknown Phone Unavailable Care Team Providers Care Transportation Maintenance Supervisor Name Role Phone Claus Couch MD PCP Encounter Details Care Team Description Date Type Department Claus Couch MD [address] [place] [address] Ftsc, Outpt Lab 01/29/2016 [facility] Outpatient Encounter Laboratory [address] [phone] Social History Date Tobacco Use [...] Drop in both eyes 2 times daily. 01/14/2016 07/15/2016 NEXIUM 40 mg Capsule, [...] 50 Administer 2 16 Gram 5 mcg/spray [place], Sprays in Suspension each nostril daily.. 09/23/2015 [...] Associated Diag nosis CBC WITH DIFFERENTIAL Routine 01/29/2016 Type 2 d iabetes mellitus 8:32 AM CDT without complication HEMOGLOBIN A1C Routine 01/29/2016 Type 2 diabetes mellitus 8:32 AM CDT without complication PHENYTOIN LEVEL, TOTAL Routine 01/29/2016 Seizure disorder 8:32 AM CDT LIPID PANEL Routine 01/29/2016 Mixed hyperlipi demia 8:32 AM CDT COMPREHENSIVE METABOLIC Routine 01/29/2016 Type 2 diabetes mellitus PANEL 8:32 AM CDT without complicatio n documented in this encounter Results * PHENYTOIN LEVEL, TOTAL (01/29/2016 8:32 AM CDT) PHENYTOIN TOTAL 11.2 10.0 - 20.0 ug/mL [facility] [place] Specimen Blood Performing Organization Address [facility] one [place] [facility] CLIA# [id number] [place] [address] [address] * LIPID PANEL (01/29/2016 8:32 AM CDT) Pathologist [facility] CHOLESTEROL 198 <200 mg/dL [facility] [place] TRIGLYCERIDE 454 (H) <150 mg/dL [facility] [place] HDL 49 40 - 59 mg/dL [facility] [place] LDL CALCULATED Comment: Calculated LDL is not <100 mg/dL [facility] accurate when the Triglyceride LABORATORY value exceeds 400. SERVICES - [place] NON-HDL 149 (H) <130 mg/dL [facility] CHOLESTEROL LABORATORY SERVICES - [place] Specimen Blood Narrative Performed At TOTAL CHOLESTEROL mg/dL [facility] Desirable <200 SERVICES [facility] high 200-239 [place] High >=240 TRIGLYCERIDES mg/dL [...] Based on AHA/NCEP Guidelines Performing Organization Address [facility] one Number [facility] CLIA# [id number] [place] [address] [address] * HEMOGLOBIN A1C (01/29/2016 8:32 AM CDT) HEMOGLOBIN A1C 6.5 (H) 4.8 - 5.9 % [facility] [place] EST. AVG 140 mg/dL [facility] GLUCOSE, A1C LAB[facility]ATORY [facility] - [place] Specimen Blood Performing Organization Address City/State/Zipcode Ph one Number [facility] CLIA# [id number] [place] [address] [place] [address] [facility] * COMPREHENSIVE METABOLIC PANEL (01/29/2016 8:32 AM CDT) [facility] Signature SODIUM 134 (L) 136 - 145 mmol/L [facility] [place] POTASSIUM 4.0 3.5 - 5.1 mmol/L [facility] [place] CHLORIDE 95 (L) 98 - 107 mmol/L [facility] [place] CO2 26 22 - 29 mmol/L [facility] [place] CALCIUM 9.4 8.8 - 10.2 mg/dL [facility] [place] BUN 13 8 - 23 mg/dL [facility] [place] CREATININE 0.82 0.67 - 1.17 mg/dL [facility] [place] GLUCOSE 178 (H) 70 - 100 mg/dL [facility] [place] TOTAL PROTEIN 7.0 6.6 - 8.7 g/dL [facility] [place] ALBUMIN 4.4 3.5 - 5.2 g/dL [facility] [place] BILIRUBIN TOTAL 0.3 <=1.2 mg/dL [facility] [place] ALKALINE 54 40 - 129 U/L [facility] PHOSPHATASE [facility] [place] AST 16 <=41 U/L [facility] [place] ALT 15 10 - 50 U/L [facility] [place] GFR >60 >=60 mL/min/1.73 sq [facility] Comment: meter LABORATORY eGFR has not been validated [facility] for use in the elderly (> [...] result. GFR, >60 >=60 mL/min/1.73 sq [facility] BRITISH meter [facility] [place] ANION GAP 13 4 - 20 mmol/L [facility] [place] Specimen Blood Performing Organization Address City/[facility] Ph one Number [facility] CLIA# [id number] [place] [address] - [place] [address] * CBC WITH DIFFERENTIAL (01/29/2016 8:32 AM [...] Ph one Number [facility] CLIA# [id number] [place], [place] [address] - [place] [address] [place] [address] documented in this encounter Visit Diagnoses Diagnosis Type 2 diabetes mellitus without compli cation Mixed hyperlipidemia Seizure disorder Unspecified epilepsy without mention of intractable epilepsy documented in this encounter
[2020-03-24 14:10] LABS: ALANINE AMINOTRANSFERASE 8 U/L (0-55); ALKALINE PHOSPHATASE 62 U/L (40-136); BILIRUBIN,TOTAL 0.3 MG/DL (0.1-1.0); BUN/CREATININE RATIO 27; CALCIUM 8.9 MG/DL (8.5-10.1); CARBON DIOXIDE 23 MMOL/L (21-32); CHLORIDE 93 MMOL/L (98-107); CREATININE SERUM 0.82 MG/DL (0.60-1.30); GFR ESTIMATED > 60; GLUCOSE 138 MG/DL (70-105); POTASSIUM 4.3 MMOL/L (3.6-5.0); SODIUM 130 MMOL/L (135-145)
--- NOTE | 2020-03-24 14:10 | Diagnostic Imaging Report ---
Indication: Coronary artery disease Comparison: 02/17/2020 Findings: Single view of the chest demonstrates stable cardiac enlargement with new central vascular congestion. There is no pneumothorax or effusion. Sternal wires midline. Osseous structures are age-appropriate. Impression: Cardiac enlargement, new central vascular congestion. Dictated by: Dictated on workstation # [id number]
--- OUTSIDE RECORDS SUMMARY | 2020-03-24 14:10 | XMS REPORT | Encounter Summary ---
Author Author [facility] Organization [facility] Address Unknown Phone Unavailable Care Team Providers Care Sales Representative Business Courses Name Role Phone Claus Couch MD PCP Reason for Visit * Reason Comments Medication Refill Encounter Details Care Team Description Date Type Department Shahram Mccallum MD NO ADDRESS ON FILE 09/09/[address] [facility] [address] [phone] Social History Date Tobacco Use Types Packs/Day [...]
--- OUTSIDE RECORDS SUMMARY | 2020-03-24 14:10 | XMS REPORT | Encounter Summary ---
Author Author [facility] Organization [facility] Address Unknown Phone Unavailable Care Team Providers Care Teacher Hearing Impaired Name Role Phone Claus Couch MD PCP Reason for Visit * Reason Comments Medication Refill Encounter Details Care Team Description Date Type Department Shahram Mccallum MD NO ADDRESS ON FILE 09/23/2015 [address] [facility] [address] [phone] Social History Date Tobacco Use [...]
--- OUTSIDE RECORDS SUMMARY | 2020-03-24 14:10 | XMS REPORT | Encounter Summary ---
Author Author [facility] Organization [facility] Address Unknown Phone Unavailable Care Team Providers Care Layup Worker Name Role Phone Claus Couch MD PCP Encounter Details Care Team Description Date Type Department Claus Couch MD [address] [place] [phone] 09/19/2015 [facility] Encounter [address] [phone] Social History Date Tobacco Use [...] Drop in both eyes 2 times daily. 09/18/2015 01/14/2016 LORazepam (ATIVAN) 1 mg TAKE [...] 30 Tablet 5 mg tablet mouth daily. 08/19/2015 11/26/2015 temazepam (RESTORIL) 15 Take 1 30 Capsule 2 mg capsule Capsule (15 mg) by mouth nightly as needed for Insomnia. 08/16/2015 09/04/2016 FLOVENT HFA 110 Take 1 [...] Tab 5 tablet mouth daily at bedtime. 03/25/2015 09/23/2015 simvastatin (ZOCOR) 40 mg TAKE ONE 90 Tab 1 tablet TABLET (40MG) BY MOUTH EVERY DAY IN THE EVENING 03/25/2015 09/23/2015 fenofibrate Take 1 Tab by 30 Tab 5 nanocrystallized (TRICOR) mouth daily 145 mg tablet with supper. 10/26/2014 10/28/2015 ramipril (ALTACE) 10 mg Take 1 Cap by 90 Cap 3 capsule mouth daily. 10/17/2014 11/27/2015 NITROSTAT 0.4 mg Tablet, Place 1 Tab 25 Tab 0 Sublingual under tongue every 5 minutes as needed for Chest Pain. 10/13/2014 10/14/2015 pioglitazone (ACTOS) 30 Take 1 Tab by 90 Tab 3 mg tablet mouth daily. 06/14/2014 10/07/2015 fluticasone (FLONASE) 50 Administer 2 16 Gram 5 mcg/spray [place], Sprays in Suspension each nostril daily. 11/27/2016 naproxen sodium 220 mg Take 440 mg 0 Oral Cap by mouth daily . 09/10/2010 04/26/2018 MULTIVITAMIN PO Take 1 Tab by 0 mouth daily with lunch. documented as of this encounter Plan of Treatment Not on filedocumented as of this encounter Procedures Comments Procedure Name Priority Date/Time Associated Diag nosis XR WRIST 3+ VW LEFT Routine 09/19/2015 Left wrist pain 11:27 AM DEBATE DIRECTOR documented in this encounter Results * XR WRIST 3+ VW LEFT (09/19/2015 11:27 AM DEBATE DIRECTOR) Specimen Impressions Performed At IMPRESSION: INTERFACE SYSTEM Left wrist negative for acute fracture. Electronically Signed By: Faraz Anaya MD, Signed On: 09/19/2015 12:33 PM Narrative Performed At EXAM: INTERFACE SYSTEM Unilateral left wrist 3 views INDICATION: Left wrist pain. COMPARISONS: Prior comparisons performed November 16, 2012 and 2015. FINDINGS: The left wrist appears intact without f racture or dislocation. The scaphoid and carpals appear intact without acute fracture. There are mild degenerative changes thr oughout the wrist. The overall appearance is unchanged. Procedure Note Interface, [facility] Incoming Radiology Results - 09/19/2015 12:37 PM DEBATE DIRECTOR EXAM: Unilateral left wrist 3 views INDICATION: Left wrist pain. COMPARISONS: Prior comparisons performed November 16, 2012 and 2015. FINDINGS: The left wrist appears intact without fracture or dislocation. The scaphoid and carpals appear intact without acute fracture. There are mild degenerative changes throughout the wrist. The overall appearance is unchanged. IMPRESSION IMPRESSION: Left wrist negative for acute fracture. Electronically Signed By: Faraz Anaya MD, Signed On: 09/19/2015 12:33 PM Performing Organization Address City/State/Zipcode one Number INTERFACE SYSTEM INTERFACE SYSTEM Refer to clinic/hospital department documented in this encounter Visit Diagnoses Diagnosis Left wrist pain Pain in joint, forearm documented in this encounter
--- OUTSIDE RECORDS SUMMARY | 2020-03-24 14:10 | XMS REPORT | Encounter Summary ---
Author Author [facility] Organization [facility] Address Unknown Phone Unavailable Care Team Providers Care Shoe Dyer Name Role Phone Claus Couch MD PCP Reason for Visit * Reason Comments Fall abrasion noted to R elbow a sue but no other complaints tripped and fell landing on his L wrist and L hand armani es hitting head or LOC Wrist Injury Left Hand Injury Left Encounter Details Care Team Description Date Type Department Jada Fernandez MD NO ADDRESS ON FILE Contusion of left wrist, initial encount er (Primary Dx); Fall, initial encounter 2015 Emergency [facility] Emergency Department [address] [phone] Social History Date Tobacco Use [...] Signs Reading Time Taken Comments Vital Sign 104/64 2015 8:58 PM CDT Blood Pressure - - Pulse 36.7 C (98 F) 2015 8:58 PM CDT Temperature 22 2015 8:58 PM CDT Respiratory Rate 97% 2015 8:58 PM CDT Oxygen Saturation - - Inhaled Oxygen Concentration 86.6 kg (191 lb) 2015 8:58 PM CDT Weight 182.9 cm (6') 2015 8:58 PM CDT Height 25.9 2015 8:58 PM CDT Body Mass Index documented in this encounter Discharge Instructions * Instructions* Haris Rosario, RN - 2015 Ice and elevate Wear splint as long as you are having pain, follow up with your primary care peter little if not better in a few days Return to the ER as needed Percocet for pain - take one tablet by mouth every 4 hours as needed for pain - may cause drowsiness * Attachments The following attachments cannot be sent through Care Everywhere.* FALL PREVENTION (COMORAN) * BRUISES (COMORAN) * ACETAMINOPHEN AND OXYCODONE (COMORAN) documented in this encounter Medications at Time [...] Drop in both eyes 2 times daily. 2015 10/10/2016 oxyCODONE-acetaminophen Take 1 Tablet 60 Tablet 0 (PERCOCET) 5-325 mg by mouth tablet every 4 hours as needed for Pain, Break-Through . Max Daily Amount: 6 Tablet 2015 09/19/2015 oxyCODONE-acetaminophen Take 1 Tablet 6 Tablet 0 (PERCOCET) 5-325 mg by mouth tablet every 4 hours as needed for Pain, Moderate. Max Daily Amount: 6 Tablet 2015 09/19/2015 oxyCODONE-acetaminophen Take 1 Tablet 60 Tablet 0 (PERCOCET) 5-325 mg by mouth tablet every 4 hours as needed for Pain, Moderate. Max Daily Amount: 6 Tablet 08/19/2015 02/24/2016 [...] 5 mg tablet mouth daily at bedtime. 06/14/2015 09/09/2015 phenytoin sodium TAKE 2 90 Cap 2 (DILANTIN) 100 mg CAPSULES BY extended release capsule MOUTH EVERY MORNING AND ONE CAPSULE AT BEDTIME. 06/10/2015 12/02/2015 bethanechol (URECHOLINE) TAKE ONE 120 [...] Tab 5 tablet mouth daily at bedtime. 05/13/2015 09/18/2015 LORazepam (ATIVAN) 1 mg TAKE ONE 60 Tab 3 tablet TABLET BY MOUTH 2 TIMES A DAY.. 03/25/2015 09/23/2015 simvastatin (ZOCOR) 40 mg TAKE [...] 90 Tab 3 mg tablet mouth daily. 08/24/2014 09/09/2015 isosorbide mononitrate TAKE ONE 60 Tab 11 (IMDUR) 60 mg Extended TABLET BY Release 24 hour tablet MOUTH 2 TIMES A DAY 06/14/2014 10/07/2015 fluticasone (FLONASE) 50 Administer 2 16 Gram 5 mcg/spray [place], Sprays in Suspension each nostril daily. 11/27/2016 naproxen sodium 220 mg Take 440 mg 0 Oral Cap by mouth daily . 09/10/2010 04/26/2018 MULTIVITAMIN PO Take 1 Tab by 0 mouth daily with lunch. documented as of this encounter ED Notes * Haris Rosario RN - 2015 10:13 PM CDT Ezequiel wrap and splint applied to L wrist/hand. * Kaye Fernandez MD - 2015 8:58 PM CDT HISTORY OF PRESENT ILLNESS Oliverio Dalton, a 65 y.o. male presents to the ED with a Chief Complaint of Fa ll; Wrist Injury; and Hand Injury Subjective HPI Comments: Here with fall this evening landing on extended L hand. Pain and t enderness L wrist, including at snuff box. Fall Pertinent negatives include no fever and no abdominal pain. Wrist Injury Pertinent negatives include no chest pain. Hand Injury Associated symptoms: no fever and no neck pain REVIEW OF SYSTEMS Review of Systems Constitutional: Negative for fever, chills, activity change, appetite change and unexpected weight change. HENT: Negative for congestion. Eyes: Negative for visual disturbance. Respiratory: Negative for chest tightness and shortness of breath. Cardiovascular: Negative for chest pain. Gastrointestinal: Negative for abdominal pain. Genitourinary: Negative for difficulty urinating. Musculoskeletal: Positive for arthralgias. Negative for neck pain. PAST MEDICAL HISTORY REVIEWED MEDICAL: Patient [...] LIST: Patient has Renal stone; Essential hypertension; BPH w/o Urinary Obs/LUTS; Neuro genic bladder, NOS; Unspecified Glaucoma; Bipolar Disorder, Unspecified; Hyperli pidemia; Tubular Adenoma; MRSA (methicillin resistant staph aureus) culture posi tive; Status post laparoscopic appendectomy; Umbilical hernia without mention of obstruction or gangrene; Bradycardia; Back pain; LFT elevation; Osteoarthritis of right knee; Carpal tunnel syndrome; Diabetes mellitus; CAD (coronary artery d isease); COPD (chronic obstructive pulmonary disease); Seizure disorder; Depress ion; Suicidal behavior; Status post colonoscopy; Right inguinal hernia; Status p ost right inguinal hernia repair; Ulcers of both lower legs, limited to breakdow n of skin; and Cigarette dependence on his problem list. ALLERGIES Codeine; Doxycycline; Penicillins; Phenobarbital; Piperacillin-tazobactam; Septr a; Terazosin; and Valium HOME MEDICATIONS Patient's Home Medications Current Home Medications ALBUTEROL IN ASPIRIN EC 81 MG ORAL TBEC BETHANECHOL (URECHOLINE) 25 MG TABLET BETIMOL 0.5 % OP DROP BLOOD SUGAR DIAGNOSTIC (ACCU-CHEK ACTIVE TEST) MISC STRP CLOPIDOGREL (PLAVIX) 75 MG TABLET FENOFIBRATE NANOCRYSTALLIZED (TRICOR) 145 MG TABLET FLOVENT HFA 110 MCG/ACTUATION HFA AEROSOL INHALER FLUOXETINE (PROZAC) 20 MG CAPSULE FLUTICASONE (FLONASE) 50 MCG/SPRAY SPRAY, SUSPENSION ISOSORBIDE MONONITRATE (IMDUR) 60 MG EXTENDED RELEASE 24 HOUR TABLET LORATADINE (CLARITIN) 10 MG TABLET LORAZEPAM (ATIVAN) 1 MG TABLET MAGNESIUM OXIDE 250 MG ORAL TAB MULTIVITAMIN PO NAPROXEN SODIUM 220 MG ORAL CAP NEXIUM 40 MG CAPSULE, DELAYED RELEASE(E.C.) NITROSTAT 0.4 MG TABLET, SUBLINGUAL OLANZAPINE (ZYPREXA) [...] Encounter Objective PHYSICAL EXAM INITIAL VS BP: 104/64 mmHg (09/03/152057), Heart Rate: 91 bpm (09/03/152057), Resp: 22 (1 2057), Temp: 98 F (36.7 C) (09/03/152057), Temp src: Oral (09/03/152057), SpO2: 97 % (09/03/152057), Height: 6' (182.9 cm) (09/03/152057), Weigh t: 86.637 kg (09/03/152057), BMI (Calculated): 25.96 (09/03/152057) No LMP for male patient. Physical Exam [...] Normal range of motion. He exhibits tenderness (L wrist exp at snuff box). Neurological: He is alert and oriented to person, place, and time. Skin: Skin is warm and dry. Nursing note and vitals reviewed. DIAGNOSTICS LAB: Labs this ED Encounter - No data to display RADIOLOGY: XR HAND 3+ VW LEFT Radiologist Impression STUDY:Left hand radiograph INDICATION: Pain COMPARISON: No comparison. TECHNIQUE: 3 views FINDINGS: No fracture, dislocation or acute osseous abnormality. No large joint effusion. Soft tissue grossly normal . IMPRESSION IMPRESSION: No acute abnormality. Electronically Signed By: Elvin Queen MD, Signed On: 2015 9:48 PM XR WRIST 3+ VW LEFT Radiologist Impression STUDY: Left wrist radiograph. INDICATION: Pain. COMPARISON: No comparison. TECHNIQUE: 4 views. FINDINGS: No fracture, dislocation or acute osseous abnormality. No large joint effusion. Soft tissue grossly normal . IMPRESSION IMPRESSION: No acute abnormality. Electronically Signed By: Elvin Queen MD, Signed On: 2015 9:47 PM EKG: PROCEDURES Procedures MEDICAL DECISION MAKING AND PLAN OF CARE REEVALUATION CASE DISCUSSED . New Prescriptions for this Encounter OXYCODONE-ACETAMINOPHEN (PERCOCET) 5-325 MG TABLET Take 1 Tablet by mouth ev len 4 hours as needed for Pain, Moderate. Max Daily Amount: 6 Tablet OXYCODONE-ACETAMINOPHEN (PERCOCET) 5-325 MG TABLET Take 1 Tablet by mouth ev len 4 hours as needed for Pain, Moderate. Max Daily Amount: 6 Tablet LAST VS BP: 104/64 mmHg (09/03/152057), Heart Rate: 91 bpm (09/03/152057), Resp: 22 (1 2057), Temp: 98 F (36.7 C) (09/03/152057), Temp src: Oral (09/03/152057), SpO2: 97 % (09/03/152057) CLINICAL IMPRESSION Final diagnoses: [S60.212A] Contusion of left wrist, initial encounter (Primary) [W19.XXXA] Fall, initial encounter CODING MDM Coding Reviewed: previous chart and vitals Reviewed previous: x-ray Interpretation: x-ray DISPOSITION, EDUCATION AND MEDICATION RECONCILIATION Medications reconciled. See after visit summary for patient education on discha rged patients. ATTESTATION STATEMENTS Splint, analgesia, rest, cold, follow up with PCP if symptoms worsen or persist * Haris Rosario RN - 2015 8:55 PM CDT Pt has ice pack upon arrival. Advised he would have to wait in waiting room but that x rays would be ordered. documented in this encounter Plan of Treatment Not on filedocumented as of this encounter Procedures Comments Procedure Name Priority Date/Time Associated Diag nosis XR HAND 3+ VW LEFT Stat 2015 9:39 PM CDT XR WRIST 3+ VW LEFT Stat 2015 9:39 PM CDT documented in this encounter Results * XR HAND 3+ VW LEFT (2015 9:39 PM CDT) Specimen Impressions Performed At IMPRESSION: No acute abnormality. INTERFACE SYSTEM Electronically Signed By: Elvin garzon MD, Signed On: 2015 9:48 PM Narrative Performed At STUDY:Left hand radiograph INTERFACE SYSTEM INDICATION: Pain COMPARISON: No comparison. TECHNIQUE: 3 views FINDINGS: No fracture, dislocation or acute osseo us abnormality. No large joint effusion. Soft tissue grossly normal . Procedure Note Interface, [facility] Incoming Radiology Results - 2015 9:52 PM CDT STUDY:Left hand radiograph INDICATION: Pain COMPARISON: No comparison. TECHNIQUE: 3 views FINDINGS: No fracture, dislocation or acute osseous abnormality. No large joint effusion. Soft tissue grossly normal . IMPRESSION IMPRESSION: No acute abnormality. Electronically Signed By: Elvin Queen MD, Signed On: 2015 9:48 PM Performing Organization Address [facility] one Number INTERFACE SYSTEM INTERFACE SYSTEM Refer to clinic/hospital department * XR WRIST 3+ VW LEFT (2015 9:39 PM CDT) Specimen Impressions Performed At IMPRESSION: No acute abnormality. INTERFACE SYSTEM Electronically Signed By: Elvin garzon MD, Signed On: 2015 9:47 PM Narrative Performed At STUDY: Left wrist radiograph. INTERFACE SYSTEM INDICATION: Pain. COMPARISON: No comparison. TECHNIQUE: 4 views. FINDINGS: No fracture, dislocation or a cute osseous abnormality. No large joint effusion. Soft tissue grossly normal . Procedure Note Interface, [facility] Incoming Radiology Results - 2015 9:51 PM CDT STUDY: Left wrist radiograph. INDICATION: Pain. COMPARISON: No comparison. TECHNIQUE: 4 views. FINDINGS: No fracture, dislocation or acute osseous abnormality. No large joint effusion. Soft tissue grossly normal . IMPRESSION IMPRESSION: No acute abnormality. Electronically Signed By: Elvin Queen MD, Signed On: 2015 9:47 PM Performing Organization Address [facility] Ph one Number INTERFACE SYSTEM INTERFACE SYSTEM Refer to clinic/hospital department documented in this encounter Visit Diagnoses Diagnosis Contusion of left wrist, initial encoun ter - Primary Fall, initial encounter documented in this encounter
--- OUTSIDE RECORDS SUMMARY | 2020-03-24 14:10 | XMS REPORT | Encounter Summary ---
Author Author [facility] Organization [facility] Address Unknown Phone Unavailable Care Team Providers Care Static Balancer Name Role Phone Claus Cocuh MD PCP Reason for Visit * Reason Comments Medication Refill Encounter Details Care Team Description Date Type Department Claus Couch MD [address] [place] [address] 11/26/2015 Refill [facility] Prim[facility] [place] [address] [place] [address] Social History Date Tobacco Use [...]
--- OUTSIDE RECORDS SUMMARY | 2020-03-24 14:10 | XMS REPORT | Encounter Summary ---
Author Author [facility] Address Unknown Phone Unavailable Care Team Providers Care Rotary Pump Operator Name Role Phone Claus Couch MD PCP Reason for Visit * Reason Comments Results est care Encounter Details Care Team Description Date Type Department Claus Couch MD [address] [place] [address] Type 2 diabetes mellitus without complic ation (Primary Dx); Chronic bronchitis, unspecified chronic bronchitis type; Seizure disorder; Essential hypertension; Mixed hyperlipidemia; Needs flu shot; Need for pneumococcal vaccination; Bipolar disorder, unspecified; Cigarette nicotine dependence, uncomplicated 08/26/2015 Office Visit [facility] [address] [place] [address] Social History Date Tobacco Use [...] Signs Reading Time Taken Comments Vital Sign 120/74 08/26/2015 9:22 AM CDT Blood Pressure - - Pulse - - Temperature - - Respiratory Rate - - Oxygen Saturation - - Inhaled Oxygen Concentration 86.6 kg (191 lb) 08/26/2015 9:22 AM CDT Weight 162.6 cm (5' 4") 08/26/2015 9:22 AM CDT Height 32.79 08/26/2015 9:22 AM CDT Body Mass Index documented in this encounter Patient Instructions * Patient Instructions* Claus Couch MD - 08/26/2015 9:39 AM CDT Hospital Encounter on 08/26/15 (from the past 168 hour(s)) COMPREHENSIVE METABOLIC PANEL Collection Time: 08/26/15 8:48 AM Result Value Ref Range SODIUM 133 (L) 134-145 mmol/L POTASSIUM 4.0 3.5-5.1 mmol/L CHLORIDE 98 98-107 mmol/L CO2 27 22-31 mmol/L CALCIUM 9.3 8.5-10.1 mg/dL BUN 19 7-20 mg/dL CREATININE 0.88 0.67-1.17 mg/dL GLUCOSE 163 (H) 70-100 mg/dL TOTAL PROTEIN 7.5 6.4-8.2 g/dL ALBUMIN 4.0 3.4-5.0 g/dL BILIRUBIN TOTAL 0.3 <=1.1 mg/dL ALKALINE PHOSPHATASE 80 46-116 U/L AST 17 10-40 U/L ALT 27 14-63 U/L GFR >60 >=60 mL/min/1.73 sq meter GFR, >60 >=60 mL/min/1.73 sq meter ANION GAP 8 4-20 mmol/L LIPID PANEL Collection Time: 08/26/15 8:48 AM Result Value Ref Range CHOLESTEROL 148 <200 mg/dL TRIGLYCERIDE 254 (H) <150 mg/dL HDL 45 40-59 mg/dL LDL CALCULATED 52 <100 mg/dL NON-HDL CHOLESTEROL 103 <130 mg/dL Narrative TOTAL CHOLESTEROL mg/dL Desirable [...] Very high >=220 Based on AHA/NCEP Guidelines HEMOGLOBIN A1C Collection Time: 08/26/15 8:48 AM Result Value Ref Range HEMOGLOBIN A1C 6.2 (H) 0.0-6.0 % EST. AVG GLUCOSE, A1C 131 mg/dL *Note: Due to a large number of results and/or encounters for the requested time period, some results have not been displayed. A complete set of results can be found in Results Review. Avoid pork if possible documented in this encounter Progress Notes * Claus Couch MD - 08/29/2015 9:19 AM CDT Oliverio Dalton is a 64 y.o. male comes in today for a follow up on hyperlipide michi and hypertension copd bipolar and history of seizures taking medications as instructed, no medication side effects noted, no TIAs, no chest pain on exertion , no dyspnea on exertion, no swelling of anklesno polyuria or polydipsia, no num bness, tingling or pain in extremities has LDL goal is under 70 denies any other difficulties overall feels good . I have reviewed the patient's medical family and surgical history in detail and updated the computerized patient record. ROS neg except for the above mentioned OBJECTIVE: Physical Exam: BP 120/74 mmHg | Ht 5' 4" (1.626 m) | Wt 191 lb (86.637 kg) | BMI 32.77 kg/m2 General appearance: alert, in no distress [...] Type 2 diabetes mellitus without complication Yes Chronic bronchitis, unspecified chronic bronchitis type Seizure disorder Essential hypertension Mixed hyperlipidemia Needs flu shot Need for pneumococcal vaccination Bipolar disorder, unspecified Cigarette nicotine dependence, uncomplicated PLAN: Orders Placed This Encounter flu PNEUMOCOCCAL 13-VALENT CONJUGATE VACCINE CBC WITH DIFFERENTIAL (3 MONTHS X 1) LIPID PANEL (3 MONTHS X 1) CMP (3 MONTHS X 1) HEMOGLOBIN A1C (3 MONTHS X 1) MICROALBUMIN/CREATININE RATIO, RANDOM UR (3 MONTHS X 1) PHENYTOIN TOTAL follow up in 3 months current treatment [...] as of this encounter Visit Diagnoses Diagnosis Type 2 diabetes mellitus without compli cation - Primary Chronic bronchitis, unspecified chronic bronchitis type Seizure disorder Unspecified epilepsy without mention of intractable epilepsy Essential hypertension Unspecified essential hypertension Mixed hyperlipidemia Needs flu shot Need for prophylactic vaccination and i noculation against influenza Need for pneumococcal vaccination Need for prophylactic vaccination again st streptococcus pneumoniae (pneumococcus) Bipolar disorder, unspecified Cigarette nicotine dependence, uncompli cated Tobacco use disorder documented in this encounter
--- OUTSIDE RECORDS SUMMARY | 2020-03-24 14:10 | XMS REPORT | Encounter Summary ---
Author Author [facility] Organization [facility] Address Unknown Phone Unavailable Care Team Providers Care Check Pilot Name Role Phone Claus Couch MD PCP Reason for Visit * Reason Comments Medication Refill Encounter Details Care Team Description Date Type Department Claus Couch MD [address] [place] [address] 09/18/2015 Refill [facility] [place] [address] [place] [address] Social History Date Tobacco Use [...]
--- OUTSIDE RECORDS SUMMARY | 2020-03-24 14:10 | XMS REPORT | Encounter Summary ---
Author Author [facility] Organization [facility] Address Unknown Phone Unavailable Care Team Providers Care Client Success Manager Name Role Phone Claus Couch MD PCP Reason for Visit * Reason Comments Medication Refill Encounter Details Care Team Description Date Type Department Shahram Mccallum MD NO ADDRESS ON FILE 08/16/2015 Refill [facility] [address] [address] Social History Date Tobacco Use [...]
--- OUTSIDE RECORDS SUMMARY | 2020-03-24 14:10 | XMS REPORT | Encounter Summary ---
Author [facility] Address Unknown Phone Unavailable Care Team Providers Care Executive Sales Manager Name Role Phone Claus Couch MD PCP Encounter Details Care Team Description Date Type Department Claus Couch MD [address] [place] [phone] 09/19/2015 [facility] Encounter [address] [address] Social History Date Tobacco Use [...] 50 Administer 2 16 Gram 5 mcg/spray [place], Sprays in Suspension each nostril daily. 11/27/2016 naproxen sodium 220 mg Take 440 mg 0 Oral Cap by mouth daily . 09/10/2010 04/26/2018 MULTIVITAMIN PO Take 1 Tab by 0 mouth daily with lunch. documented as of this encounter Plan of Treatment Not on filedocumented as of this encounter Procedures Comments Procedure Name Priority Date/Time Associated Diag nosis XR HAND 3+ VW LEFT Routine 09/19/2015 Left wrist pain 11:27 AM SENIOR IT ASSISTANT documented in this encounter Results * XR HAND 3+ VW LEFT (09/19/2015 11:27 AM SENIOR IT ASSISTANT) Specimen Impressions Performed At IMPRESSION: INTERFACE SYSTEM Unilateral left hand negative for acute fracture. Electronically Signed By: Faraz Anaya MD, Signed On: 09/19/2015 12:32 PM Narrative Performed At EXAM: INTERFACE SYSTEM Unilateral left hand 3 views. INDICATION: Left hand and wrist pain. COMPARISONS: Previous ultrasound performed November and 2015. Previous left hand films performed on O 2014. FINDINGS: The hand appears intact without acute f racture or dislocation. There is general degenerative changes t hroughout the hand including narrowing of the radiocarpal joint. The scaphoid appears intact. Procedure Note Interface, [facility] Incoming Radiology Results - 09/19/2015 12:36 PM SENIOR IT ASSISTANT EXAM: Unilateral left hand 3 views. INDICATION: Left hand and wrist pain. COMPARISONS: Previous ultrasound performed November 16, 2012 and 2015. Previous left hand films performed on 2015. FINDINGS: The hand appears intact without acute fracture or dislocation. There is general degenerative changes throughout the hand including narrowing of the radiocarpal joint. The scaphoid appears intact. IMPRESSION IMPRESSION: Unilateral left hand negative for acute fracture. Electronically Signed By: Faraz Anaya MD, Signed On: 09/19/2015 12:32 PM Performing Organization Address City/State/Zipcode Ph one Number INTERFACE SYSTEM INTERFACE SYSTEM Refer to clinic/hospital department documented in this encounter Visit Diagnoses Diagnosis Left wrist pain Pain in joint, forearm documented in this encounter
--- OUTSIDE RECORDS SUMMARY | 2020-03-24 14:10 | XMS REPORT | Encounter Summary ---
Author Author [facility] Organization [facility] Address Unknown Phone Unavailable Care Team Providers Care Financial Associate Name Role Phone Claus Couch MD PCP Reason for Visit * Reason Comments Medication Refill Encounter Details Care Team Description Date Type Department Claus Couch MD [address] [place] [address] 10/07/2015 Refill [facility] Prim[facility] [place] [address] [place] [address] Social History Date Tobacco Use [...]
--- OUTSIDE RECORDS SUMMARY | 2020-03-24 14:10 | XMS REPORT | Encounter Summary ---
Author Author [facility] Organization [facility] Address Unknown Phone Unavailable Care Team Providers Care Route Process Administrator Name Role Phone Claus Couch MD PCP Reason for Visit * Reason Comments Medication Refill Encounter Details Care Team Description Date Type Department Claus Couch MD [address] [place] [address] 2015 Refill [facility] [place] [address] [place] [address] Social History Date Tobacco [...]
--- OUTSIDE RECORDS SUMMARY | 2020-03-24 14:10 | XMS REPORT | Encounter Summary ---
Author Author [facility] Organization [facility] Address Unknown Phone Unavailable Care Team Providers Care Thread Cutter Tender Name Role Phone Claus Couch MD PCP Reason for Visit * Reason Comments Medication Refill Encounter Details Care Team Description Date Type Department Claus Couch MD [address] [place] [address] 10/14/2015 Refill [facility] [place] [address] [place] [address] Social History Date Tobacco Use [...]
--- OUTSIDE RECORDS SUMMARY | 2020-03-24 14:10 | XMS REPORT | Encounter Summary ---
Author Author [facility] Organization [facility] Address Unknown Phone Unavailable Care Team Providers Care Assistant Attorney General Name Role Phone Claus Couch MD PCP Encounter Details Care Team Description Date Type Department Claus Couch MD [address] [place] [address] [facility] Outpt Lab 08/26/2015 [facility] Encounter Laboratory [address] [address] Social History Date Tobacco Use [...] Drop in both eyes 2 times daily. 08/19/2015 02/24/2016 loratadine (CLARITIN) 10 Take 1 [...] 5 mg tablet mouth daily at bedtime. 06/20/2015 2015 oxyCODONE-acetaminophen Take 1 Tab by 60 Tab 0 (PERCOCET) 5-325 mg mouth every 4 tabletIndications: Low hours as back pain, unspecified, needed for with sciatica presence Pain, unspecified Break-Through . Max Daily Amount: 6 Tabs 06/14/2015 09/09/2015 phenytoin sodium TAKE 2 90 [...] 50 Administer 2 16 Gram 5 mcg/spray [place], Sprays in Suspension each nostril daily. 11/27/2016 naproxen sodium 220 mg Take 440 mg 0 Oral Cap by mouth daily . 09/10/2010 04/26/2018 MULTIVITAMIN PO Take 1 Tab by 0 mouth daily with lunch. documented as of this encounter Plan of Treatment Not on filedocumented as of this encounter Procedures Comments Procedure Name Priority Date/Time Associated Diag nosis HEMOGLOBIN A1C Stat 08/26/2015 Diabetes mellit us 8:48 AM CDT LIPID PANEL Stat 08/26/2015 Hyperlipidemia 8:48 AM CDT COMPREHENSIVE METABOLIC Stat 08/26/2015 Hyperl ipidemia PANEL 8:48 AM CDT documented in this encounter Results * HEMOGLOBIN A1C (08/26/2015 8:48 AM CDT) HEMOGLOBIN A1C 6.2 (H) 0.0 - 6.0 % [facility] [place] EST. AVG 131 mg/dL [facility] GLUCOSE, A1C LAB[facility]ATORY SERVICES - [place] Specimen Blood Performing Organization Address [facility] one [facility] CLIA# [id number] [place] [address] [address] * LIPID PANEL (08/26/2015 8:48 AM CDT) CHOLESTEROL 148 <200 mg/dL [facility] [place] TRIGLYCERIDE 254 (H) <150 mg/dL [facility] [place] HDL 45 40 - 59 mg/dL [facility] [place] LDL CALCULATED 52 <100 mg/dL [facility] [place] NON-HDL 103 <130 mg/dL [facility] CHOLESTEROL [facility] [place] Specimen Blood Narrative Performed At TOTAL CHOLESTEROL mg/dL [facility] LAB[facility] Desirable <200 SERVICES - [facility] Borderline high 200-239 [place] High >=240 TRIGLYCERIDES mg/dL Normal <150 Borderline high 150-199 High 200-499 Very high >=500 HDL CHOLESTEROL mg/dL Low <40 Normal 40-59 Desirable >=60 LDL CHOLESTEROL mg/dL Optimal <100 Low risk 100-129 Borderline high 130-159 High 160-189 Very high >=190 NON HDL CHOLESTEROL mg/dL Optimal <130 Near Optimal 130-159 Borderline High 160-189 High 190-219 Very high >=220 Based on AHA/NCEP Guidelines Performing Organization Address [facility] one [facility] LABORATORY SERVICES CLIA# [id number] [place] [address] [address] * COMPREHENSIVE METABOLIC PANEL (08/26/2015 8:48 AM CDT) SODIUM 133 (L) 134 - 145 mmol/L [facility] [place] POTASSIUM 4.0 3.5 - 5.1 mmol/L [facility] [place] CHLORIDE 98 98 - 107 mmol/L [facility] [place] CO2 27 22 - 31 mmol/L [facility] [place] CALCIUM 9.3 8.5 - 10.1 mg/dL [facility] [place] BUN 19 7 - 20 mg/dL [facility] [place] CREATININE 0.88 0.67 - 1.17 mg/dL [facility] [place] GLUCOSE 163 (H) 70 - 100 mg/dL [facility] [place] TOTAL PROTEIN 7.5 6.4 - 8.2 g/dL [facility] [place] ALBUMIN 4.0 3.4 - 5.0 g/dL [facility] [place] BILIRUBIN TOTAL 0.3 <=1.1 mg/dL [facility] [place] ALKALINE 80 46 - 116 U/L [facility] PHOSPHATASE [facility] [place] AST 17 10 - 40 U/L [facility] [place] ALT 27 14 - 63 U/L [facility] [place] GFR >60 >=60 mL/min/1.73 sq [facility] Comment: meter LABORATORY eGFR has not been validated [facility] for use in the elderly (> [...] result. GFR, >60 >=60 mL/min/1.73 sq [facility] [place] meter [facility] [place] ANION GAP 8 4 - 20 mmol/L [facility] [place] Specimen Blood Performing Organization Address City/State/Zipcode Ph one Number [facility] CLIA# [id number] [place] [address] [place] [address] [facility] documented in this encounter Visit Diagnoses Diagnosis Hyperlipidemia Other and unspecified hyperlipidemia Diabetes mellitus Type II or unspecified type diabetes me llitus without mention of complication, not stated as uncontrolled documented in this encounter
--- OUTSIDE RECORDS SUMMARY | 2020-03-24 14:10 | XMS REPORT | Encounter Summary ---
Author Author [facility] Organization [facility] Address Unknown Phone Unavailable Care Team Providers Care Process Helper Name Role Phone Claus Couch MD PCP Reason for Visit * Reason Comments Medication Refill Encounter Details Care Team Description Date Type Department Shahram Mccallum MD NO ADDRESS ON FILE 08/19/2015 Refill [facility] [address] [address] Social History Date Tobacco Use [...]
--- OUTSIDE RECORDS SUMMARY | 2020-03-24 14:10 | XMS REPORT | Encounter Summary ---
Author Author [facility] Organization [facility] Address Unknown Phone Unavailable Care Team Providers Care Distribution Operation Supervisor Name Role Phone Claus Couch MD PCP Reason for Visit * Reason Comments Leg Wound Encounter Details Care Team Description Date Type Department Mary Zhou MD NO ADDRESS ON FILE Ulcers of both lower legs, limited to br eakdown of skin (Primary Dx) 07/24/2015 Office Visit [facility] Surgery [address] [address] Social History Date Tobacco Use [...] Signs Reading Time Taken Comments Vital Sign 111/69 08/03/2015 2:22 PM CDT Blood Pressure 66 08/03/2015 2:22 PM CDT Pulse 36.3 C (97.3 F) 08/03/2015 2:22 PM CDT Temperature 20 08/03/2015 2:22 PM CDT Respiratory Rate - - Oxygen Saturation - - Inhaled Oxygen Concentration 87.7 kg (193 lb 6.4 oz) 08/03/2015 2:22 PM CDT Weight 167.6 cm (5' 6") 08/03/2015 2:22 PM CDT Height 31.22 08/03/2015 2:22 PM CDT Body Mass Index documented in this encounter Progress Notes * Mary Zhou MD - 08/03/2015 2:27 PM CDT Subjective: Patient no new complaints. Current Outpatient Prescriptions Medication Sig Dispense Refill NEXIUM 40 mg Capsule, Delayed Release(E.C.) Take 1 Cap by mouth daily before breakfast. 30 Capsule 5 ZETIA 10 mg tablet Take 1 Tab by mouth daily at bedtime. 30 Tablet 5 OLANZapine (ZYPREXA) 2.5 mg tablet Take 1 Tab by mouth daily at bedtime. 30 Tab 5 oxyCODONE-acetaminophen (PERCOCET) 5-325 mg tablet Take 1 Tab by mouth every 4 hours as needed for Pain, Break-Through. Max Daily Amount: 6 Tabs 60 Tab 0 phenytoin sodium (DILANTIN) 100 mg extended release capsule TAKE 2 CAPSULES BY MOUTH EVERY MORNING AND ONE CAPSULE AT BEDTIME. 90 Cap 2 bethanechol (URECHOLINE) 25 mg tablet TAKE ONE TABLET BY MOUTH FOUR TIMES A DAY 120 Tab 2 FLUoxetine (PROZAC) 20 mg capsule TAKE 2 CAPSULES BY MOUTH EVERY DAY. 60 Cap 5 clopidogrel (PLAVIX) 75 mg Tablet Take 1 Tab by mouth daily. 30 Tab 5 bethanechol (URECHOLINE) 25 mg tablet TAKE ONE TABLET BY MOUTH FOUR TIMES A DAY 120 Tab 2 tamsulosin (FLOMAX) 0.4 mg capsule TAKE ONE CAPSULE BY MOUTH EVERY DAY 30 HI NUTES AFTER SUPPER 30 Cap 5 traZODone (DESYREL) 50 mg tablet Take 1 Tab by mouth daily at bedtime. 30 Ta b 5 temazepam (RESTORIL) 15 mg capsule Take 1 Cap (15 mg) by mouth nightly as ne eded for Insomnia. 30 Cap 2 LORazepam (ATIVAN) 1 mg tablet TAKE ONE TABLET BY MOUTH 2 TIMES A DAY.. 60 T ab 3 simvastatin (ZOCOR) 40 mg tablet TAKE ONE TABLET (40MG) BY MOUTH EVERY DAY I N THE EVENING 90 Tab 1 fenofibrate nanocrystallized (TRICOR) 145 mg tablet Take 1 Tab by mouth jono y with supper. 30 Tab 5 polyethylene glycol 3350 (MIRALAX) 17 gram/dose Powder Take 1 SCOOP (17 Gram ) by mouth daily Dissolve in 8 ounces of fluid and drink entire liquid. 527 Gram 0 tiZANidine (ZANAFLEX) 4 mg Tablet Take 1 Tab (4 mg) by mouth every 8 hours a s needed for Spasm. 30 Tab 0 ezetimibe (ZETIA) 10 mg tablet Take 1 Tab by mouth daily at bedtime. 30 Tab 5 ramipril (ALTACE) 10 mg capsule Take 1 Cap by mouth daily. 90 Cap 3 NITROSTAT 0.4 mg Tablet, Sublingual Place 1 Tab under tongue every 5 minutes as needed for Chest Pain. 25 Tab PRN pioglitazone (ACTOS) 30 mg tablet Take 1 Tab by mouth daily. 90 Tab 3 prochlorperazine maleate (COMPAZINE) 10 mg tablet Take 10 mg by mouth every 6 hours as needed. FLUoxetine (PROZAC) 20 mg capsule Take 2 Caps by mouth daily. 60 Cap 5 loratadine (CLARITIN) 10 mg tablet Take 1 Tab by mouth daily. 30 Tab 11 isosorbide mononitrate (IMDUR) 60 mg Extended Release 24 hour tablet TAKE ON E TABLET BY MOUTH 2 TIMES A DAY 60 Tab 11 fluticasone (FLONASE) 50 mcg/spray [place], Suspension Administer 2 Sprays in each nostril daily. 16 Gram 5 fluticasone (FLOVENT HFA) 110 mcg/actuation Aerosol Take 1 Puff by inhalatio n 2 times daily. 12 Gram 5 albuterol (PROAIR HFA) 90 mcg/Actuation HFA Aerosol Inhaler HFA inhaler Take 2 Puffs by inhalation every 4 hours as needed for Shortness of Breath. 8.5 Gram 5 insulin glargine (LANTUS) 100 unit/mL Solution 40 units at bedtime 10 mL 11 naproxen sodium 220 mg Oral Cap Take by mouth daily. 2 tablets daily blood sugar diagnostic (ACCU-CHEK ACTIVE TEST) Misc Strp In the am & pm prn 1 Package 0 magnesium oxide 250 mg Oral Tab Take 1 Tab by mouth 3 times daily. ASPIRIN EC 81 mg Oral TbEC Take 81 mg by mouth daily. MULTIVITAMIN PO Take 1 Tab by mouth daily with lunch. ALBUTEROL IN Take 2 Puffs by inhalation every 6 hours as needed BETIMOL 0.5 % OP Drop Administer 1 Drop in both eyes 2 times daily. No current facility-administered medications for this visit. Objective: BP 111/69 mmHg | Pulse 66 | Temp(Src) 97.3 F (36.3 C) | Resp 20 | Ht 5' 6" ( 1.676 m) | Wt 193 lb 6.4 oz (87.726 kg) | BMI 31.23 kg/m2 General appearance: alert, in no distress Skin: leg ulcers clean and dry, nearly closed. No results found. However, due to the size of the patient record, not all encoun ters were searched. Please check Results Review for a complete set of results. Assessment: BLE skin ulcers nearly closed. Plan: Wound management discussed with Wound Care nurse, see detailed note. documented in this encounter Plan of Treatment Not on filedocumented as of this encounter Visit Diagnoses Diagnosis Ulcers of both lower legs, limited to b reakdown of skin - Primary documented in this encounter
--- OUTSIDE RECORDS SUMMARY | 2020-03-24 14:10 | XMS REPORT | Encounter Summary ---
Author Author [facility] Organization [facility] Address Unknown Phone Unavailable Care Team Providers Care Wool Sorter Name Role Phone Claus Couch MD PCP Reason for Visit * Reason Comments Arm pain X 2 weeks fall on sep 03, 015 and went to er and they said nothing broken but still having pain Encounter Details Care Team Description Date Type Department Claus Couch MD [address] [place] [address] Left wrist pain (Primary Dx) 09/19/2015 Office Visit [facility] [place] [address] [place] [address] Social History Date Tobacco [...] Signs Reading Time Taken Comments Vital Sign 140/60 09/19/2015 10:36 AM ADVANCED DEVELOPER Blood Pressure - - Pulse 36.2 C (97.1 F) 09/19/2015 10:36 AM ADVANCED DEVELOPER Temperature - - Respiratory Rate - - Oxygen Saturation - - Inhaled Oxygen Concentration 89.4 kg (197 lb) 09/19/2015 10:36 AM ADVANCED DEVELOPER Weight 167.6 cm (5' 6") 09/19/2015 10:36 AM ADVANCED DEVELOPER Height 31.8 09/19/2015 10:36 AM ADVANCED DEVELOPER Body Mass Index documented in this encounter Progress Notes * Claus Couch MD - 09/20/2015 2:09 PM ADVANCED DEVELOPER HISTORY OF PRESENT ILLNESS Oliverio Dalton, a 65 y.o. male. Subjective HPI the patient fell last week still with pain in the hand and the wrist has been we aring the splint some decreased range of motion as well REVIEW OF SYSTEMS Review of Systems Constitutional: [...] hematuria, flank pain and difficulty urinating. Musculoskeletal: Positive for arthralgias. Negative for back pain. Skin: Negative for color change. Neurological: Negative for dizziness, syncope, facial asymmetry and numbness. Psychiatric/Behavioral: Negative for behavioral problems and agitation. Objective PHYSICAL EXAM BP 140/60 mmHg | Temp(Src) 97.1 F (36.2 C) (Tympanic) | Ht 5' 6" (1.676 m) | Wt 197 lb (89.359 kg) | BMI 31.81 kg/m2 Physical Exam Constitutional: He appears well-developed and well-nourished. HENT: Head: Normocephalic and atraumatic. Cardiovascular: Normal rate, regular rhythm, normal heart sounds and intact dist al pulses. Pulmonary/Chest: Effort normal and breath sounds normal. Abdominal: Soft. Bowel sounds are normal. Musculoskeletal: Left wrist: He exhibits decreased range of motion. Left hand: He exhibits decreased range of motion. Decreased strength noted. Assessment ASSESSMENT and PLAN: ICD-9-CM ICD-10-CM 1. Left wrist pain 719.43 M25.532 XR HAND 3+ VW LEFT XR WRIST 3+ VW LEFT methylPREDNISolone Acetate (DEPO-MEDROL) injection 80 mg dexamethasone (DECADRON) injection 4 mg repeat xr today continue splint Orders Placed This Encounter XR HAND 3+ VW LEFT XR WRIST 3+ VW LEFT methylPREDNISolone Acetate (DEPO-MEDROL) injection 80 mg dexamethasone (DECADRON) injection 4 mg NCED DEVELOPER documented in this encounter Plan of Treatment Not on filedocumented as of this encounter Results * XR WRIST 3+ VW LEFT (09/19/2015 11:27 AM ADVANCED DEVELOPER) Specimen Impressions Performed At IMPRESSION: INTERFACE SYSTEM [...] overall appearance is unchanged. Procedure Note Interface, [facility] Incoming Radiology Results - 09/19/2015 12:37 PM ADVANCED DEVELOPER EXAM: Unilateral left wrist 3 views INDICATION: [...] 09/19/2015 12:33 PM Performing Organization Address City/State/Zipcode Ph one Number INTERFACE SYSTEM INTERFACE SYSTEM Refer to clinic/hospital department * XR HAND 3+ VW LEFT (09/19/2015 11:27 AM ADVANCED DEVELOPER) Specimen Impressions Performed At IMPRESSION: INTERFACE SYSTEM Unilateral left hand negative for acute fracture. Electronically Signed By: Faraz Anaya MD, Signed On: 09/19/2015 12:32 PM Narrative Performed At EXAM: INTERFACE SYSTEM Unilateral left hand 3 views. INDICATION: Left hand and wrist pain. COMPARISONS: Previous ultrasound performed November and 2015. Previous left hand films performed on [facility]2014. FINDINGS: The hand appears intact without acute f racture or dislocation. There is general degenerative changes t hroughout the hand including narrowing of the radiocarpal joint. The scaphoid appears intact. Procedure Note Interface, [facility] Incoming Radiology Results - 09/19/2015 12:36 PM ADVANCED DEVELOPER EXAM: Unilateral left hand 3 views. INDICATION: [...] encounter Visit Diagnoses Diagnosis Left wrist pain - Primary Pain in joint, forearm documented in this encounter Administered Medications Action Date Dose Rate Site Medication Order MAR Action 09/19/2015 10:54 AM ADVANCED DEVELOPER 4 mg Right Up per Outer Quadrant dexamethasone (DECADRON) injection 4 mg Given 4 mg, IM, ONE TIME ONLY, 1 dose, Nancy 09/19/15 at 1100, Routine 09/19/2015 10:54 AM ADVANCED DEVELOPER 80 mg Right Up per Outer Quadrant methylPREDNISolone Acetate (DEPO-MEDROL) Given injection 80 mg 80 mg, IM, ONE TIME ONLY, 1 dose, Nancy 09/19/15 at 1100, Routine documented in this encounter
--- OUTSIDE RECORDS SUMMARY | 2020-03-24 14:10 | XMS REPORT | Encounter Summary ---
Author Author [facility] Organization [facility] Address Unknown Phone Unavailable Care Team Providers Care Outdoor Adventure Leader Name Role Phone Claus Couch MD PCP Reason for Visit * Reason Comments Medication Refill Encounter Details Care Team Description Date Type Department Shahram Mccallum MD NO ADDRESS ON FILE 10/28/2015 Refill [facility] [address] [address] Social History Date Tobacco Use [...]
[2020-03-24 14:11] LABS: ALBUMIN 3.9 GM/DL (3.2-4.5); TOTAL PROTEIN 6.4 GM/DL (6.4-8.2)
--- OUTSIDE RECORDS SUMMARY | 2020-03-24 14:11 | XMS REPORT | Encounter Summary ---
Author Author [facility] Organization [facility] Address Unknown Phone Unavailable Care Team Providers Care Political Cartoonist Name Role Phone Shahram Mccallum MD PCP Unavailable Reason for Visit * Reason Comments Medication Refill Encounter Details Care Team Description Date Type Department Shahram Mccallum MD NO ADDRESS ON FILE 06/03/2015 Refill [facility] Primar y Care [address] [phone] Social History Date Tobacco Use Types Packs/Day [...]
--- OUTSIDE RECORDS SUMMARY | 2020-03-24 14:11 | XMS REPORT | Encounter Summary ---
Author Author [facility] Organization [facility] Address Unknown Phone Unavailable Care Team Providers Care Administrative Medical Director Name Role Phone Shahram Mccallum MD PCP Unavailable Reason for Visit * Reason Comments Medication Refill Encounter Details Care Team Description Date Type Department Shahram Mccallum MD NO ADDRESS ON FILE 07/16/2015 Refill [facility] Primar y Care [address] [phone] Social History Date Tobacco Use Types Packs/Day [...]
--- OUTSIDE RECORDS SUMMARY | 2020-03-24 14:11 | XMS REPORT | Encounter Summary ---
Author Author [facility] Organization [facility] Address Unknown Phone Unavailable Care Team Providers Care Solid Plasterer Name Role Phone Shahram Mccallum MD PCP Unavailable Reason for Visit * Reason Comments Leg Wound Encounter Details Care Team Description Date Type Department Beulah Zhou MD NO ADDRESS ON FILE Ulcers of both lower legs, limited to br eakdown of skin (Primary Dx) 07/08/2015 Office Visit [facility] Surgery [address] [address] Social History Date Tobacco Use [...] Signs Reading Time Taken Comments Vital Sign 123/65 07/15/2015 10:34 AM CDT Blood Pressure 72 07/15/2015 10:34 AM CDT Pulse 36.1 C (97 F) 07/15/2015 10:34 AM CDT Temperature - - Respiratory Rate - - Oxygen Saturation - - Inhaled Oxygen Concentration 87.1 kg (192 lb) 07/15/2015 10:34 AM CDT Weight 167.6 cm (5' 6") 07/15/2015 10:34 AM CDT Height 30.99 07/15/2015 10:34 AM CDT Body Mass Index documented in this encounter Progress Notes * Beulah Zhou MD - 07/15/2015 10:35 AM CDT Subjective: Patient has multiple medical issues and is well known to me. Recently fell, not due to syncope, and has multiple BLE abrasions. Topical treatment has improved these lesions. Past Medical History Diagnosis Date Wrist sprain 08/10 Rt. Contusion, back 08/16/03 Fall Cataract Unspecified disease of respiratory system Glaucoma Asthma Diabetes Seizure disorder last seizure 2010 Unspecified disorder of lipoid metabolism Coronary artery disease Chronic ischemic heart disease, unspecified Unspecified essential hypertension COPD (chronic obstructive pulmonary disease) Anxiety Past Surgical History Procedure Laterality Date Hx [...] spec when pfrmd 02/01/2009 COLONOSCOPY performed by BEULAH ZHOU at [facility] OR Hx hernia repair 1988 And age 4 Hx lap cholecystectomy 05/17/07 Hx coronary artery bypass graft Hx heart catheterization 04/10 With angioplasty, 2 stents Pr lap,appendectomy 05/28/2012 APPENDECTOMY LAPAROSCOPIC performed by Beulah Zhou MD at [facility] OR Pr repair umbilical colleen,4+y/o,reduc 05/28/2012 HERNIA UMBILICAL REPAIR performed by Beulah Zhou MD at [facility] OR Pr colonoscopy flx dx w/collj spec when pfrmd 12/28/2013 COLONOSCOPY performed by Beulah Zhou MD at [facility] OR Hx hernia inguinal repair Right 03/08/2015 HERNIA INGUINAL REPAIR performed by Beulah Zhou MD at [facility] OR Current Outpatient Prescriptions Medication Sig Dispense Refill OLANZapine (ZYPREXA) 2.5 mg tablet Take 1 [...] ONE CAPSULE BY MOUTH EVERY DAY 30 [place] NUTES AFTER SUPPER 30 Cap 5 traZODone [...] and drink entire liquid. 527 Gram 0 NEXIUM 40 mg Capsule, Delayed Release(E.C.) Take 1 Cap by mouth daily before breakfast. 30 Cap 5 tiZANidine (ZANAFLEX) 4 mg Tablet Take 1 [...] 60 Tab 11 fluticasone (FLONASE) 50 mcg/spray [place], Suspension Administer 2 Sprays in each nostril [...] No current facility-administered medications for this visit. Allergies Allergen Reactions Codeine Unknown Doxycycline Rash Penicillins Hives Phenobarbital Weakness "relaxes me too much" Piperacillin-Tazobactam Hives and Rash Breaks out Septra [Sulfamethoxazole-Trimethoprim] Nausea and Vomiting Terazosin Other (See Comments) Chest heaviness, chest pain Valium [Diazepam] Other (See Comments) "stops breathing, no pulse" Unresponsiveness "stops breathing, no pulse" Objective: BP 123/65 mmHg | Pulse 72 | Temp(Src) 97 F (36.1 C) | Ht 5' 6" (1.676 m) | W t 192 lb (87.091 kg) | BMI 31.00 kg/m2 General appearance: alert, in no distress Skin: multiple superficial abrasions, dry without slough or drainage. No results found. However, due to the size of the patient record, not all encoun ters were searched. Please check Results Review for a complete set of results. Assessment: Superficial abrasions, no evidence of infection. Plan: Wound management discussed with Wound Care nurse, see detailed note. documented in this encounter Plan of Treatment Not on filedocumented as of this encounter Visit Diagnoses Diagnosis Ulcers of both lower legs, limited to b reakdown of skin - Primary documented in this encounter
--- OUTSIDE RECORDS SUMMARY | 2020-03-24 14:11 | XMS REPORT | Encounter Summary ---
Author Author [facility] Organization [facility] Address Unknown Phone Unavailable Care Team Providers Care Hydrologic Engineer Name Role Phone Shahram Mccallum MD PCP Unavailable Reason for Visit * Reason Comments Medication Refill Encounter Details Care Team Description Date Type Department Shahram Mccallum MD NO ADDRESS ON FILE 05/13/2015 Refill [facility] Primar y Care [address] [phone] Social History Date Tobacco Use Types Packs/Day [...]
--- OUTSIDE RECORDS SUMMARY | 2020-03-24 14:11 | XMS REPORT | Encounter Summary ---
Author Author [facility] Organization [facility] Address Unknown Phone Unavailable Care Team Providers Care Cro Name Role Phone Shahram Mccallum MD PCP Unavailable Reason for Visit * Reason Comments Leg Wound fell last week, and has a w ound on right kovacs that is not healing, looks infected per patient Encounter Details Care Team Description Date Type Department Neyda Redmond MD [address] [place] [address] Infected wound, initial encounter (Prima ry Dx) 06/21/2015 Office Visit [facility] Primar y Care [place] [address] [place] [address] Social History Date Tobacco Use [...] Reading Time Taken Comments Vital Sign 100/54 06/21/2015 3:16 PM CDT Blood Pressure - - Pulse 36.6 C (97.9 F) 06/21/2015 3:16 PM CDT Temperature - - Respiratory Rate - - Oxygen Saturation - - Inhaled Oxygen Concentration 88.9 kg (196 lb) 06/21/2015 3:16 PM CDT Weight 167.6 cm (5' 6") 06/21/2015 3:16 PM CDT Height 31.64 06/21/2015 3:16 PM CDT Body Mass Index documented in this encounter Progress Notes * Neyda Redmond MD - 06/21/2015 3:24 PM CDT HISTORY OF PRESENT ILLNESS Oliverio Dalton, a 64 y.o. male. Subjective HPI A week ago left foot went in a hole and right foot slid forward and skinned his kovacs. Fell on buttocks. REVIEW OF SYSTEMS Review of Systems Constitutional: Negative for fever and chills. Objective PHYSICAL EXAM BP 100/54 mmHg | Temp(Src) 97.9 F (36.6 C) (Tympanic) | Ht 5' 6" (1.676 m) | Wt 196 lb (88.905 kg) | BMI 31.65 kg/m2 Physical Exam Constitutional: He appears well-developed and well-nourished. No distress. HENT: Head: Normocephalic and atraumatic. Skin: Abrasion on right kovacs with mild purulence and surrounding erythema Assessment ASSESSMENT and PLAN: ICD-9-CM ICD-10-CM 1. Infected wound, initial encounter 958.3 T79.8XXA Orders Placed This Encounter sulfamethoxazole-trimethoprim (BACTRIM DS) 800-160 mg tablet If edema not improving with antibiotic, doppler of right leg. documented in this encounter Plan of Treatment Not on filedocumented as of this encounter Visit Diagnoses Diagnosis Infected wound, initial encounter - Farhana matta documented in this encounter
--- OUTSIDE RECORDS SUMMARY | 2020-03-24 14:11 | XMS REPORT | Encounter Summary ---
Author Author [facility] Organization [facility] Address Unknown Phone Unavailable Care Team Providers Care Polystyrene Molding Machine Tender Name Role Phone Shahram Mccallum MD PCP Unavailable Reason for Visit * Reason Comments Medication Refill Encounter Details Care Team Description Date Type Department Shahram Mccallum MD NO ADDRESS ON FILE Low back pain, unspecified, with sciatic a presence unspecified (Primary Dx) 06/20/2015 Refill [facility] Primar y Care [address] [address] Social History Date Tobacco Use [...] as of this encounter Visit Diagnoses Diagnosis Low back pain, unspecified, with sciati ca presence unspecified - Primary documented in this encounter
--- OUTSIDE RECORDS SUMMARY | 2020-03-24 14:11 | XMS REPORT | Encounter Summary ---
Author Author [facility] Organization [facility] Address Unknown Phone Unavailable Care Team Providers Care Sex Worker Or Escort Name Role Phone Claus Couch MD PCP Encounter Details Care Team Description Date Type Department Mary Zhou MD NO ADDRESS ON FILE Janell Marie RN 07/24/2015 [facility] ort Encounter [facility] [address] [place] [address] Social History Date Tobacco Use [...] Reading Time Taken Comments Vital Sign 111/69 07/24/2015 10:21 AM CDT Blood Pressure 66 07/24/2015 10:21 AM CDT Pulse 36.3 C (97.3 F) 07/24/2015 10:21 AM CDT Temperature 20 07/24/2015 10:21 AM CDT Respiratory Rate - - Oxygen Saturation - - Inhaled Oxygen Concentration 87.7 kg (193 lb 6.4 oz) 07/24/2015 10:21 AM CDT Weight 167.6 cm (5' 6") 07/24/2015 10:21 AM CDT Height 31.22 07/24/2015 10:21 AM CDT Body Mass Index documented in [...] Drop in both eyes 2 times daily. 07/22/2015 01/14/2016 NEXIUM 40 mg Capsule, Take [...] Tab 5 mg Tablet mouth daily. 06/03/2015 08/26/2015 bethanechol (URECHOLINE) TAKE ONE 120 Tab 2 25 mg tablet TABLET BY MOUTH FOUR TIMES A DAY 06/03/2015 12/02/2015 tamsulosin (FLOMAX) 0.4 TAKE ONE 30 Cap 5 mg capsule CAPSULE BY MOUTH EVERY DAY 30 MINUTES AFTER SUPPER 06/03/2015 12/09/2015 traZODone (DESYREL) 50 mg Take 1 Tab by 30 Tab 5 tablet mouth daily at bedtime. 05/27/2015 08/19/2015 temazepam (RESTORIL) 15 Take 1 Cap 30 Cap 2 mg capsule (15 mg) by mouth nightly as needed for Insomnia. 05/13/2015 09/18/2015 LORazepam (ATIVAN) 1 mg TAKE ONE 60 Tab 3 tablet TABLET BY MOUTH 2 TIMES A DAY.. 03/25/2015 09/23/2015 simvastatin (ZOCOR) 40 mg TAKE ONE 90 Tab 1 tablet TABLET (40MG) BY MOUTH EVERY DAY IN THE EVENING 03/25/2015 09/23/2015 fenofibrate Take 1 Tab by 30 Tab 5 nanocrystallized (TRICOR) mouth daily 145 mg tablet with supper. 01/03/2015 08/26/2015 tiZANidine (ZANAFLEX) 4 Take 1 Tab (4 30 Tab 0 mg Tablet mg) by mouth every 8 hours as needed for Spasm. 12/06/2014 08/26/2015 ezetimibe (ZETIA) 10 mg Take 1 Tab by 30 Tab 5 tablet mouth daily at bedtime. 10/26/2014 10/28/2015 ramipril (ALTACE) 10 mg Take 1 Cap by 90 Cap 3 capsule mouth daily. 10/17/2014 11/27/2015 NITROSTAT 0.4 mg Tablet, Place 1 Tab 25 Tab 0 Sublingual under tongue every 5 minutes as needed for Chest Pain. 10/13/2014 10/14/2015 pioglitazone (ACTOS) 30 Take 1 Tab by 90 Tab 3 mg tablet mouth daily. 08/26/2015 prochlorperazine maleate Take 10 mg by 0 (COMPAZINE) 10 mg tablet mouth every 6 hours as needed. 10/05/2014 08/26/2015 FLUoxetine (PROZAC) 20 mg Take 2 Caps 60 Cap 5 capsule by mouth daily. 08/24/2014 08/19/2015 loratadine (CLARITIN) 10 Take 1 Tab by 30 Tab 11 mg tablet mouth daily. 08/24/2014 09/09/2015 isosorbide mononitrate TAKE ONE 60 Tab 11 (IMDUR) 60 mg Extended TABLET BY Release 24 hour tablet MOUTH 2 TIMES A DAY 06/14/2014 10/07/2015 fluticasone (FLONASE) 50 Administer 2 16 Gram 5 mcg/spray [place], Sprays in Suspension each nostril daily. 11/14/2013 08/16/2015 fluticasone (FLOVENT HFA) Take 1 Puff 12 Gram 5 110 mcg/actuation Aerosol by inhalation 2 times daily. 11/14/2013 08/16/2015 albuterol (PROAIR HFA) 90 Take 2 Puffs 8.5 Gram 5 mcg/Actuation HFA Aerosol by inhalation Inhaler HFA inhaler every 4 hours as needed for Shortness of Breath. 10/12/2013 08/26/2015 insulin glargine (LANTUS) 40 units at 10 mL 11 100 unit/mL bedtime SolutionIndications: Diabetes mellitus 11/27/2016 naproxen sodium 220 mg Take 440 mg 0 Oral Cap by mouth daily . 09/10/2010 04/26/2018 MULTIVITAMIN PO Take 1 Tab by 0 mouth daily with lunch. documented as of this encounter Progress Notes * Janell Marie RN - 07/24/2015 10:30 AM CDT WOUND CARE TREATMENT NOTE [id number] Patient Name: Oliverio Dalton : 1950 Visit # 3 Date: 07/24/2015 Charges Time In: 1030 Time Out: 1045 Total Time: 15 minutes Medical Diagnosis: Patient Active Problem List Diagnosis Code Renal stone 592.0 Unspecified essential hypertension 401.9 BPH w/o Urinary Obs/LUTS 600.00 Neurogenic bladder, NOS 596.54 Unspecified Glaucoma 365.9 Bipolar Disorder, Unspecified 296.80 Hyperlipidemia 272.4 Tubular Adenoma 229.9 MRSA (methicillin resistant staph aureus) culture positive V02.54 Status post laparoscopic appendectomy V45.89 Umbilical hernia without mention of obstruction or gangrene 553.1 Bradycardia 427.89 Back pain 724.5 LFT elevation 790.6 Osteoarthritis of right knee 715.96 Carpal tunnel syndrome 354.0 Diabetes mellitus 250.00 CAD (coronary artery disease) 414.00 COPD (chronic obstructive pulmonary disease) 496 Seizure disorder 345.90 Depression 311 Suicidal behavior 300.9 Status post colonoscopy V45. Right inguinal hernia 550.90 Status post right inguinal hernia repair V45.89 Ulcers of both lower legs, limited to breakdown of skin 707.10 Treatment Diagnosis: bilateral Le partial thickness ulcerations, edema, diabetes type 2 Subjective no problems, Problem List diabetes edema wound(s) Alteration in skin integrity Alternation in comfort Decreased knowledge of wound management Decreased knowledge of disease process Excessive drainage Potential for/or infection Fall Risk Objective See Doc Flow Sheets for wound measurements and information. Ulcerations with dry crusty bases that come off when cleaned. No signs of infect ion, edema controlled with Tubigrip DKarlos Zhou in to evaluate. inst to cleanse legs daily. Apply AWILDA to newly healed areas, continue to wear Tubigrip until kne e high compression stocking obtained. Right Pulse Right Edema Left Pulse Left Edema Assessment Short Term Goals:ulcers closed, goals met Education inst on discharge care and signs to report. Voices understanding. Plan Compression garments Patient and family education Comments: Discharge. Contact Information [facility] [address] [place] [address] Phone - Please leave a message documented in this encounter Plan of Treatment Not on filedocumented as of this encounter Visit Diagnoses Diagnosis Ulcers of both lower legs, limited to b reakdown of skin - Primary documented in this encounter
--- OUTSIDE RECORDS SUMMARY | 2020-03-24 14:11 | XMS REPORT | Encounter Summary ---
Author Author [facility] Organization [facility] Address Unknown Phone Unavailable Care Team Providers Care Keysmith Name Role Phone Shahram Mccallum MD PCP Unavailable Reason for Visit * Reason Comments Medication Reaction Encounter Details Care Team Description Date Type Department Neyda Redmond MD [address] [place] [address] Medication Reaction 06/24/2015 Telephone [facility] Primar y Care [place] [address] [place] [address] Social History Date Tobacco Use [...] encounter Miscellaneous Notes * Telephone Encounter - Rosalinda Bal - 06/24/2015 3:37 PM CDT Pharmacy request PA for Tem[facility] mg[phone] Approval given through 11/07/15. Confirmation number [id number]. * Telephone Encounter - Bridger Moon - 06/24/2015 1:24 PM CDT Pt called stating bactrim is making him vomit. Dr. Redmond notified and wanted pt to stop the med and start keflex 500mg bid for 4days documented in this encounter Plan of Treatment Not on filedocumented as of this encounter Visit Diagnoses Not on filedocumented in this encounter
--- OUTSIDE RECORDS SUMMARY | 2020-03-24 14:11 | XMS REPORT | Encounter Summary ---
Author Author [facility] Organization [facility] Address Unknown Phone Unavailable Care Team Providers Care Croze Machine Operator Name Role Phone Shahram Mccallum MD PCP Unavailable Reason for Visit * Reason Comments Medication Refill Encounter Details Care Team Description Date Type Department Shahram Mccallum MD NO ADDRESS ON FILE Low back pain, unspecified, with sciatic a presence unspecified (Primary Dx) 05/21/2015 Refill [facility] Primar y Care [place] [address] [place] [address] Social History Date Tobacco Use [...]
--- OUTSIDE RECORDS SUMMARY | 2020-03-24 14:11 | XMS REPORT | Encounter Summary ---
Author Author [facility] Organization [facility] Address Unknown Phone Unavailable Care Team Providers Care Electrical Controls Engineer Name Role Phone Shahram Mccallum MD PCP Unavailable Reason for Visit * Reason Comments Medication Refill Encounter Details Care Team Description Date Type Department Shahram Mccallum MD NO ADDRESS ON FILE 06/10/2015 Refill [facility] Primar y Care [address] [phone] Social History Date Tobacco Use Types Packs/Day [...]
--- OUTSIDE RECORDS SUMMARY | 2020-03-24 14:11 | XMS REPORT | Encounter Summary ---
Author Author [facility] Organization [facility] Address Unknown Phone Unavailable Care Team Providers Care Mounter Smoking Pipe Name Role Phone Shahram Mccallum MD PCP Unavailable Reason for Visit * Reason Comments Medication Refill Encounter Details Care Team Description Date Type Department Self, Aries Montelongo MD [address] [place] [address] 06/24/[address] [facility] Primar y Care [place] [address] [place] [address] Social History Date [...]
--- OUTSIDE RECORDS SUMMARY | 2020-03-24 14:11 | XMS REPORT | Encounter Summary ---
Author Author [facility] Organization [facility] Address Unknown Phone Unavailable Care Team Providers Care Healthcare Financial Analyst Name Role Phone Claus Couch MD PCP Reason for Visit * Reason Comments Medication Refill Encounter Details Care Team Description Date Type Department Self, Aries Montelongo MD [address] [place] [address] 07/22/2015 Refill [facility] Primar y Care [place] [address] [place] [address] Social History Date Tobacco Use [...]
--- OUTSIDE RECORDS SUMMARY | 2020-03-24 14:11 | XMS REPORT | Encounter Summary ---
Author Author [facility] Organization [facility] Address Unknown Phone Unavailable Care Team Providers Care Computational Linguist Name Role Phone Shahram Mccallum MD PCP Unavailable Reason for Visit * Reason Comments Medication Refill Encounter Details Care Team Description Date Type Department Jada Fernandez MD NO ADDRESS ON FILE 06/14/2015 Refill [facility] Primar y Care [address] [phone] Social History Date Tobacco Use Types Packs/Day [...]
--- OUTSIDE RECORDS SUMMARY | 2020-03-24 14:11 | XMS REPORT | Encounter Summary ---
Author Author [facility] Organization [facility] Address Unknown Phone Unavailable Care Team Providers Care Pharmacy Aide Name Role Phone Shahram Mccallum MD PCP Unavailable Reason for Visit * Reason Comments Medication Refill Encounter Details Care Team Description Date Type Department Shahram Mccallum MD NO ADDRESS ON FILE 05/27/2015 Refill [facility] Primar y Care [address] [phone] Social History Date Tobacco Use Types Packs/Day [...]
--- OUTSIDE RECORDS SUMMARY | 2020-03-24 14:11 | XMS REPORT | Encounter Summary ---
Author Author [facility] Organization [facility] Address Unknown Phone Unavailable Care Team Providers Care Torch Shearer Name Role Phone Shahram Mccallum MD PCP Unavailable Encounter Details Care Team Description Date Type Department Mary Zhou MD NO ADDRESS ON FILE Janell Marie RN 07/08/2015 [facility] ort Encounter [facility] [address] [place] [address] Social History Date Tobacco Use [...] Reading Time Taken Comments Vital Sign 123/65 07/08/2015 10:05 AM CDT Blood Pressure 72 07/08/2015 10:05 AM CDT Pulse 36.3 C (97.3 F) 07/08/2015 10:05 AM CDT Temperature - - Respiratory Rate - - Oxygen Saturation - - Inhaled Oxygen Concentration 87.1 kg (192 lb) 07/08/2015 10:05 AM CDT Weight 167.6 cm (5' 6") 07/08/2015 10:05 AM CDT Height 30.99 07/08/2015 10:05 AM CDT Body Mass Index documented in [...] Drop in both eyes 2 times daily. 07/04/2015 12/03/2015 cephALEXin (KEFLEX) 500 Take 1 [...] mouth daily 145 mg tablet with supper. 01/23/2015 07/22/2015 NEXIUM 40 mg Capsule, Take 1 Cap by 30 Cap 5 Delayed Release(E.C.) mouth daily before breakfast. 01/03/2015 08/26/2015 tiZANidine (ZANAFLEX) 4 Take 1 [...] 50 Administer 2 16 Gram 5 mcg/spray [place], Sprays in Suspension each nostril daily. 11/14/2013 [...] Progress Notes * Janell Marie RN - 07/08/2015 10:00 AM CDT WOUND CARE TREATMENT NOTE [id number] Patient Name: Oliverio Dalton : 1950 Visit # a dmitt Date: 07/08/2015 Charges Time In: 1000 Time Out: 1015 Total Time: 15 minutes Medical Diagnosis: Patient Active Problem List Diagnosis Code Renal stone 592.0 Unspecified essential hypertension 401.9 BPH w/o Urinary Obs/LUTS 600.00 Neurogenic bladder, NOS 596.54 Unspecified Glaucoma 365.9 Bipolar Disorder, Unspecified 296.80 Hyperlipidemia 272.4 Tubular Adenoma 229.9 MRSA (methicillin resistant staph aureus) culture positive V02.54 Status post laparoscopic appendectomy V45. Umbilical hernia without mention of obstruction or gangrene 553.1 Bradycardia 427.89 Back pain 724.5 LFT elevation 790.6 Osteoarthritis of right knee 715.96 Carpal tunnel syndrome 354.0 Diabetes mellitus 250.00 CAD (coronary artery disease) 414.00 COPD (chronic obstructive pulmonary disease) 496 Seizure disorder 345.90 Depression 311 Suicidal behavior 300.9 Status post colonoscopy V45.89 Right inguinal hernia 550.90 Status post right inguinal hernia repair V45.89 Treatment Diagnosis: Trauma wounds to bilateral anterior LE related to falls at home. Partial thickness ulcerations right and left LE. Subjective fell in yard and over boxes in past month and ulcers to legs are not healing. S sherrin DR Couch and referred to wound care. On Keflex po. Has been leaving ulcers open to air with AWILDA. States he has to watch to keep his dogs from licking his wounds. Problem List diabetes edema wound(s) Alteration in skin integrity Alternation in comfort Decreased knowledge of wound management Decreased knowledge of disease process Excessive drainage Potential for/or infection Fall Risk Objective See Doc Flow Sheets for wound measurements and information. Cleaned legs with soap and water, Dr Zhou in to evaluate and POC discussed, cov ered ulcers with mepilex ag, and tegaderm x 3, Tubigirp D applied for light comp ression. Mild erythema to periulcer areas. Right Pulse Right Edema Left Pulse Left Edema +2 +1 nonpitting +2 +1 nonpitting Assessment Short Term Goals:antibiotics to control infection, wound to promote healing, delmi surements to decrease in size, jail ulcers to close and infection resolved. Education Inst on POC, wound care in wound care clinic, elevate LE, limit salty foods, com plete antibiotics. Voices understanding. Plan Compression garments Dressing changes Patient and family education Comments: RTc 1 week. Has limited transportation and must come in when caregive r is available. Contact Information [facility] [address] [place] [phone] Phone - Please leave a message documented in this encounter Plan of Treatment Not on filedocumented as of this encounter Visit Diagnoses Not on filedocumented in this encounter
--- OUTSIDE RECORDS SUMMARY | 2020-03-24 14:11 | XMS REPORT | Encounter Summary ---
Author Author [facility] Organization [facility] Address Unknown Phone Unavailable Care Team Providers Care Logistics Center Manager Name Role Phone Shahram Mccallum MD PCP Unavailable Reason for Visit * Reason Comments Medication Refill Encounter Details Care Team Description Date Type Department Rosalinda Bal Medication Refill 04/23/2015 Telephone [facility] [address] [place] [address] Social History Date Tobacco Use [...] * Telephone Encounter - Rosalinda Bal - 04/23/2015 12:48 PM CDT Patient requested refill of Ocyxodone 5/325. Dr Mccallum denied. Will give patie nt #10 of Hydrocodone 5/325. Patient will picker and sorter load and unload script at [address] documented in this encounter Plan of Treatment Not on filedocumented as of this encounter Visit Diagnoses Not on filedocumented in this encounter
--- OUTSIDE RECORDS SUMMARY | 2020-03-24 14:11 | XMS REPORT | Encounter Summary ---
Author Author [facility] Organization [facility] Address Unknown Phone Unavailable Care Team Providers Care Market Research Intern Name Role Phone Shahram Mccallum MD PCP Unavailable Reason for Visit * Reason Comments Leg Wound Encounter Details Care Team Description Date Type Department Mary Zhou MD NO ADDRESS ON FILE Ulcers of both lower legs, limited to br eakdown of skin (Primary Dx) 07/17/2015 Office Visit [facility] Surgery [address] [phone] Social History Date Tobacco Use [...] Signs Reading Time Taken Comments Vital Sign 128/65 07/24/2015 11:25 AM CDT Blood Pressure 70 07/24/2015 11:25 AM CDT Pulse 36.5 C (97.7 F) 07/24/2015 11:25 AM CDT Temperature 20 07/24/2015 11:25 AM CDT Respiratory Rate - - Oxygen Saturation - - Inhaled Oxygen Concentration 87.1 kg (192 lb) 07/24/2015 11:25 AM CDT Weight 167.6 cm (5' 6") 07/24/2015 11:25 AM CDT Height 30.99 07/24/2015 11:25 AM CDT Body Mass Index documented in this encounter Progress Notes * Mary Zhou MD - 07/24/2015 11:26 AM CDT Subjective: Patient no new complaints. Current [...] ONE CAPSULE BY MOUTH EVERY DAY 30 TX NUTES AFTER SUPPER 30 Cap 5 traZODone [...] 60 Tab 11 fluticasone (FLONASE) 50 mcg/spray [place], Suspension Administer 2 Sprays in each nostril [...] facility-administered medications for this visit. Objective: BP 128/65 mmHg | Pulse 70 | Temp(Src) 97.7 F (36.5 C) | Resp 20 | Ht 5' 6" ( 1.676 m) | Wt 192 lb (87.091 kg) | BMI 31.00 kg/m2 General appearance: alert, in no distress Skin: skin ulcers dry and clean. No results found. However, due to the size of the patient record, not all encoun ters were searched. Please check Results Review for a complete set of results. Assessment: Bilateral LE abrasions, healing. Plan: Wound management discussed with Wound Care nurse, see detailed note. documented in this encounter Plan of Treatment Not on filedocumented as of this encounter Visit Diagnoses Diagnosis Ulcers of both lower legs, limited to b reakdown of skin - Primary documented in this encounter
--- OUTSIDE RECORDS SUMMARY | 2020-03-24 14:11 | XMS REPORT | Encounter Summary ---
Author Author [facility] Organization [facility] Address Unknown Phone Unavailable Care Team Providers Care Still Operator Batch Or Continuous Name Role Phone Shahram Mccallum MD PCP Unavailable Reason for Visit * Reason Comments Leg Swelling right- hot to touch Encounter Details Care Team Description Date Type Department Claus Couch MD [address] [place] [address] Ulcer of leg, chronic, right, with fat l joe exposed (Primary Dx) 07/04/2015 Office Visit [facility] Primar y Care [place] [address] [place] [address] Social History Date Tobacco Use [...] Signs Reading Time Taken Comments Vital Sign 130/64 07/04/2015 11:03 AM CDT Blood Pressure - - Pulse 36.4 C (97.6 F) 07/04/2015 11:03 AM CDT Temperature - - Respiratory Rate - - Oxygen Saturation - - Inhaled Oxygen Concentration 84.8 kg (187 lb) 07/04/2015 11:03 AM CDT Weight 167.6 cm (5' 6") 07/04/2015 11:03 AM CDT Height 30.18 07/04/2015 11:03 AM CDT Body Mass Index documented in this encounter Progress Notes * Claus Couch MD - 07/04/2015 12:31 PM CDT HISTORY OF PRESENT ILLNESS Oliverio Dalton, a 64 y.o. male. Subjective HPI Patient comes in today with complaints of wounds on his legs has been going on f or the last several weeks he first sought care for this on 813 he was started on Bactrim however the patient had an allergic reaction to it with nausea and vomi ting was then changed to doxycycline however doxycycline was actually not even p atient was asked to start on Keflex 500 mg twice a day per pharmacy patient stat es that the swelling has not gotten better the ulcers have continued and is almo st in one month without any healing REVIEW OF SYSTEMS Review of Systems Constitutional: [...] problems and agitation. Objective PHYSICAL EXAM BP 130/64 mmHg | Temp(Src) 97.6 F (36.4 C) (Tympanic) | Ht 5' 6" (1.676 m) | Wt 187 lb (84.823 kg) | BMI 30.20 kg/m2 Physical Exam Constitutional: He appears well-developed and well-nourished. HENT: Head: Normocephalic and atraumatic. Cardiovascular: Normal rate, regular rhythm, normal heart sounds and intact dist al pulses. Pulmonary/Chest: Effort normal and breath sounds normal. Abdominal: Soft. Bowel sounds are normal. Musculoskeletal: He exhibits edema. Skin: Lesion noted. There is erythema. Assessment ASSESSMENT and PLAN: ICD-9-CM ICD-10-CM 1. Ulcer of leg, chronic, right, with fat layer exposed 707.10 L97.912 We'll get the patient set up to see wound care as this is not healing we'll star t him on another round of Keflex documented in this encounter Plan of Treatment Not on filedocumented as of this encounter Visit Diagnoses Diagnosis Ulcer of leg, chronic, right, with fat layer exposed - Primary documented in this encounter
--- OUTSIDE RECORDS SUMMARY | 2020-03-24 14:11 | XMS REPORT | Encounter Summary ---
Author Author [facility] Organization [facility] Address Unknown Phone Unavailable Care Team Providers Care Coal Shooter Name Role Phone Shahram Mccallum MD PCP Unavailable Reason for Visit * Reason Comments Medication Refill Encounter Details Care Team Description Date Type Department Rosalinda Bal Low back pain, unspecified, with sciatic a presence unspecified (Primary Dx) 04/05/2015 Refill [facility] [address] [place] [phone] Social History Date Tobacco Use Types Packs/Day [...]
--- OUTSIDE RECORDS SUMMARY | 2020-03-24 14:11 | XMS REPORT | Encounter Summary ---
Author Author [facility] Organization [facility] Address Unknown Phone Unavailable Care Team Providers Care General Cargo Clerk Name Role Phone Shahram Mccallum MD PCP Unavailable Reason for Visit * Reason Comments Medication Refill Encounter Details Care Team Description Date Type Department Shahram Mccallum MD NO ADDRESS ON FILE Low back pain, unspecified, with sciatic a presence unspecified (Primary Dx) 04/30/2015 Refill [facility] Primar y Care [address] [address] Social History Date Tobacco Use [...]
--- OUTSIDE RECORDS SUMMARY | 2020-03-24 14:11 | XMS REPORT | Encounter Summary ---
Author Author [facility] Organization [facility] Address Unknown Phone Unavailable Care Team Providers Care Doctor Of Podiatry Name Role Phone Shahram Mccallum MD PCP Unavailable Encounter Details Care Team Description Date Type Department Mary Zhou MD NO ADDRESS ON FILE Janell Marie RN 07/17/2015 [facility] ort Encounter [facility] [address] [place] [address] Social History Date Tobacco Use [...] Reading Time Taken Comments Vital Sign 128/65 07/17/2015 10:10 AM CDT Blood Pressure 70 07/17/2015 10:10 AM CDT Pulse 36.5 C (97.7 F) 07/17/2015 10:10 AM CDT Temperature 20 07/17/2015 10:10 AM CDT Respiratory Rate - - Oxygen Saturation - - Inhaled Oxygen Concentration 87.1 kg (192 lb) 07/17/2015 10:10 AM CDT Weight 167.6 cm (5' 6") 07/17/2015 10:10 AM CDT Height 30.99 07/17/2015 10:10 AM CDT Body Mass Index documented in [...] Drop in both eyes 2 times daily. 07/16/2015 01/06/2016 ZETIA 10 mg tablet Take [...] 50 Administer 2 16 Gram 5 mcg/spray [place], Sprays in Suspension each nostril daily. 11/14/2013 [...] Progress Notes * Janell Marie RN - 07/17/2015 10:10 AM CDT WOUND CARE TREATMENT NOTE [id number] Patient Name: Oliverio Dalton : 1950 Visit # 2 Date: 07/17/2015 Charges Time In: 1010 Time Out:1025 Total Time: 15 minutes Medical Diagnosis: Patient [...] limited to breakdown of skin 707.10 Treatment Diagnosis:trauma wounds partial thickness to bilateral anterior LE rel ated to falls at home, Diabetes type 2, Subjective completed antibiotics, Tubigrip Too hot but kept it on. Problem List diabetes edema wound(s) Alteration in skin integrity Alternation in comfort Decreased knowledge of wound management Decreased knowledge of disease process Excessive drainage Potential for/or infection Fall Risk Objective See Doc Flow Sheets for wound measurements and information. Cleansed legs with soap and water and wound cleanser to ulcers, less drainage an d erythema to legs. Dr Zhou in to evaluate and POC discussed, will continue pre sent wound care due to improvement. Patient agreeable to wear Tubigirp to contro l edema and promote healing, RTC 1 week may shower. Right Pulse Right Edema Left Pulse Left Edema +2 Controlled with compression +2 Controlled with compression Assessment Short Term Goals:ulcers to remain free of infection, wound care weekly, measurem ents to decrease in size, goals met this week. Education Inst on methods to control edema, limit salty foods, Voices understanding Plan Compression garments Dressing changes Patient and family education Comments: RTC [address] [facility] [address] [place] [address] Phone - Please leave a message documented in this encounter Plan of Treatment Not on filedocumented as of this encounter Visit Diagnoses Diagnosis Ulcers of both lower legs, limited to b reakdown of skin - Primary documented in this encounter
[2020-03-24 14:12] LABS: ACETAMINOPHEN < 10 UG/ML (10-30); SALICYLATE < 0.3 MG/DL (5.0-20.0)
--- OUTSIDE RECORDS SUMMARY | 2020-03-24 14:12 | XMS REPORT | Encounter Summary ---
Author Author [facility] Organization [facility] Address Unknown Phone Unavailable Care Team Providers Care Grocery Supervisor Name Role Phone Shahram Mccallum MD PCP Unavailable Reason for Visit * Reason Comments Medication Refill Encounter Details Care Team Description Date Type Department Shahram Mccallum MD NO ADDRESS ON FILE 03/25/2015 Refill [facility] Primar y Care [address] [phone] Social History Date Tobacco Use Types Packs/Day [...]
--- OUTSIDE RECORDS SUMMARY | 2020-03-24 14:12 | XMS REPORT | Encounter Summary ---
Author Author [facility] Organization [facility] Address Unknown Phone Unavailable Care Team Providers Care Seo Manager Name Role Phone Shahram Mccallum MD PCP Unavailable Reason for Visit * Reason Comments Post-op Visit po hernia Encounter Details Care Team Description Date Type Department Mary Zhou MD NO ADDRESS ON FILE Status post right inguinal hernia repair (Primary Dx) 03/14/2015 Office Visit [address] [phone] Social History Date Tobacco Use [...] Reading Time Taken Comments Vital Sign 110/60 03/14/2015 1:21 PM CDT Blood Pressure - - Pulse 36.7 C (98 F) 03/14/2015 1:21 PM CDT Temperature - - Respiratory Rate - - Oxygen Saturation - - Inhaled Oxygen Concentration 85.7 kg (189 lb) 03/14/2015 1:21 PM CDT Weight 165.1 cm (5' 5") 03/14/2015 1:21 PM CDT Height 31.45 03/14/2015 1:21 PM CDT Body Mass Index documented in this encounter Progress Notes * Mary Zhou MD - 03/16/2015 12:08 PM CDT Subjective: Patient noted swelling and discoloration of right scrotum. Sore but having no d ifficulty with voiding or BM. Current Outpatient Prescriptions Medication Sig Dispense Refill phenytoin sodium extended release (DILANTIN) 100 mg capsule TAKE 2 CAPSULES BY MOUTH EVERY MORNING AND ONE CAPSULE AT BEDTIME. 90 Cap 2 zolpidem (AMBIEN) 10 mg tablet TAKE 1 TABLET BY MOUTH AT BEDTIME NEEDED.. 30 Tab 3 oxyCODONE-acetaminophen (PERCOCET) 5-325 mg tablet Take 1 Tab by mouth every 4 hours as needed for Pain, Break-Through. Max Daily Amount: 6 Tabs 60 Tab 0 polyethylene glycol 3350 (MIRALAX) 17 gram/dose Powder Take 1 SCOOP (17 Gram ) by mouth daily Dissolve in 8 ounces of fluid and drink entire liquid. 527 Gra m 0 NEXIUM 40 mg Capsule, Delayed Release(E.C.) Take 1 Cap by mouth daily before breakfast. 30 Cap 5 HYDROcodone-acetaminophen (NORCO) 5-325 mg tablet Take 1 Tab by mouth every 4 hours as needed for Pain may take one or two tabs every 4 hours as needed for pain.. Max Daily Amount: 6 Tabs 50 Tab 0 tiZANidine (ZANAFLEX) 4 mg Tablet Take 1 Tab (4 mg) by mouth every 8 hours a s needed for Spasm. 30 Tab 0 OLANZapine (ZYPREXA) 2.5 mg tablet Take 1 Tab by mouth daily at bedtime. 30 Tab 5 ezetimibe (ZETIA) 10 mg tablet Take 1 Tab by mouth daily at bedtime. 30 Tab 5 LORazepam (ATIVAN) 1 mg tablet TAKE ONE TABLET BY MOUTH 2 TIMES A DAY. 60 T ab 3 bethanechol (URECHOLINE) 25 mg tablet TAKE ONE TABLET BY MOUTH FOUR TIMES A DAY 120 Tab 5 traZODone (DESYREL) 50 mg tablet Take 1 Tab by mouth daily at bedtime. 30 T ab 5 clopidogrel (PLAVIX) 75 mg Tablet Take 1 Tab by mouth daily. 30 Tab 5 FLUoxetine (PROZAC) 20 mg tablet Take 2 Tabs by mouth daily. take 2 capsules daily 60 Tab 5 tamsulosin (FLOMAX) 0.4 mg Extended Release 24 hour capsule TAKE ONE CAPSULE BY MOUTH EVERY DAY 30 MINUTES AFTER SUPPER 30 Cap 5 ramipril (ALTACE) 10 mg capsule Take [...] Caps by mouth daily. 60 Cap 5 fenofibrate nanocrystallized (TRICOR) 145 mg tablet Take 1 Tab by mouth jono y with supper. 30 Tab 5 simvastatin (ZOCOR) 40 mg tablet TAKE ONE TABLET (40MG) BY MOUTH EVERY DAY I N THE EVENING 90 Tab 1 loratadine (CLARITIN) 10 mg tablet Take 1 Tab by mouth daily. 30 Tab 11 isosorbide mononitrate (IMDUR) 60 mg Extended Release 24 hour tablet TAKE ON E TABLET BY MOUTH 2 TIMES A DAY 60 Tab 11 fluticasone (FLONASE) 50 mcg/spray [place], Suspension Administer 2 Sprays in each nostril [...] Solution 40 units at bedtime 10 mL 1 1 naproxen sodium 220 mg Oral Cap Take [...] facility-administered medications for this visit. Objective: BP 110/60 | Temp(Src) 98 F (36.7 C) | Ht 5' 5" (1.651 m) | Wt 189 lb (85. 73 kg) | BMI 31.45 kg/m2 General appearance: alert, in no distress Abdomen: not distended, soft. Bowel tones present. Right inguinal area with ed lian, ecchymosis resolved. Results for orders placed during the hospital encounter of 03/08/15 (from the pa [facility] 336 hour(s)) MRSA PCR RAPID SCREEN Collection Time 03/08/15 6:55 AM Result Value Ref Range MRSA PCR RESULT MRSA not detected MRSA not detected Narrative: PLEASE NOTE: This test has not been approved to monitor effectiveness of MRSA decolonization. Residual DNA may temporarily be present after successful decolo nization. This test was performed using an FDA approved screening methodology. A POSITIVE result indicates the presence of MRSA target DNA. A NEGATIVE result indicates the absence of MRSA target DNA. An INVALID result indicates the presence or absence of MRSA target DNA could no t be determined. POC GLUCOSE Collection Time 03/08/15 7:28 AM Result Value Ref Range POC GLUCOSE 163 (*) 70-100 mg/dL PATHOLOGY Collection Time 03/08/15 9:09 AM Result Value Ref Range CASE REPORT Value: Surgical Pathology Report Case: [id number] Authorizing Provider: Mary Zhou MD Collected: 5 09:09 AM Ordering Location: [facility] Received: 5 03:26 PM Operating Room Pathologist: David Ferrer MD Specimen: Right inguinal hernia sac. FINAL DIAGNOSIS Value: This result contains rich text formatting which cannot be displayed here . OPERATIVE PROCEDURE Value: This result contains rich text formatting which cannot be displayed here . GROSS DESCRIPTION Value: This result contains rich text formatting which cannot be displayed here . MICROSCOPIC DESCRIPTION Value: This result contains rich text formatting which cannot be displayed here . EMBEDDED IMAGE Results for orders placed during the hospital encounter of 03/05/15 (from the [facility] 336 hour(s)) XR HAND 3+ VW RIGHT Collection Time 03/05/15 8:54 PM Narrative: EXAM: 3 views right hand CLINICAL INDICATION: Right hand pain COMPARISON: None. FINDINGS: The osseous structures are intact. Chronic healed fracture deformities of the di stal fourth and fifth metacarpals are noted. No acute fracture or dislocation identified. Impression: IMPRESSION: No acute fracture or dislocation identified. Chronic healed fracture deformities of the distal fourth and fifth metacarpal bones. Electronically Signed By: Kishan Kasper MD, Signed On: 03/06/2015 8:36 AM *Note: Due to a large number of results for the requested time period, some res ults have not been displayed. A complete set of results can be found in Results Review. Assessment: Status post right inguinal hernia repair, no complication. Plan: Staple removal. Follow up as needed. documented in this encounter Plan of Treatment Not on filedocumented as of this encounter Visit Diagnoses Diagnosis Status post right inguinal hernia repai r - Primary Other postprocedural status documented in this encounter
--- OUTSIDE RECORDS SUMMARY | 2020-03-24 14:12 | XMS REPORT | Encounter Summary ---
Author Author [facility] Organization [facility] Address Unknown Phone Unavailable Care Team Providers Care Paper Machine Operator Name Role Phone Shahram Mccallum MD PCP Unavailable Encounter Details Care Team Description Date Type Department Rosalinda Bal 03/26/2015 Orders Only [facility] [place] [address] [place] [phone] Social History Date Tobacco Use Types Packs/Day [...]
--- OUTSIDE RECORDS SUMMARY | 2020-03-24 14:12 | XMS REPORT | Encounter Summary ---
Author Author [facility] Organization [facility] Address Unknown Phone Unavailable Care Team Providers Care Mammalogist Name Role Phone Shahram Mccallum MD PCP Unavailable Encounter Details Care Team Description Date Type Department Mary Zhou MD NO ADDRESS ON FILE HERNIA INGUINAL REPAIR 03/08/[address] [facility] Operating Room [address] [place] [id number] Social History Date Tobacco Use Types [...] Signs Reading Time Taken Comments Vital Sign 137/45 03/08/2015 10:23 AM CDT Blood Pressure 68 03/08/2015 10:23 AM CDT Pulse 36.1 C (97 F) 03/08/2015 10:23 AM CDT Temperature 18 03/08/2015 10:23 AM CDT Respiratory Rate 97% 03/08/2015 10:14 AM CDT Oxygen Saturation - - Inhaled Oxygen Concentration 85.7 kg (189 lb) 03/08/2015 7:03 AM CDT Weight 165.1 cm (5' 5") 03/08/2015 7:03 AM CDT Height 31.45 03/08/2015 7:03 AM CDT Body Mass Index documented in this encounter Discharge Instructions * Instructions* Christi Doss - 03/08/2015 1. Call office, , for any questions. Office hours are 8 am to 5 pm Wednesday to , and 8 am to 12 noon on Wednesday. 2. Follow up with Dr. Zhou on ---MARCH 14 AT 1:30 PM 3. Keep incision dry until Wednesday afternoon. Then remove dressing and shower over incision with soap and water daily. 4. Apply small amount of antibiotic ointment (Triple or generic Neosporin) twic e daily. Leave open to air dry or cover with Band-Aids as needed. 5. May take MOM 30 ml at bedtime for constipation. 6. Resume aspirin and Plavix on Wednesday. 7. May take Tylenol 325 mg to 650 mg every 6 hours as needed for mild pain. Activity You may walk or take stairs No lifting anything heavier than 30 pounds for up t o 6 weeks. No pushing, pulling or straining. Diet There are no restrictions to your diet, however a high fiber, low fat diet is re commended. Start with a light diet or snack when first beginning to eat today. Avoid anyth ing spicy or greasy when first beginning to eat. Incision No sutures visible. The sutures are underneath the skin and are dissolvable. You r incision can get wet and you can shower. Wash and dry the area carefully. You may notice some bruising around the incision, which will slowly go away in 1 to 2 weeks. Any signs of infection such as drainage, redness, and pain should be re ported to may office. There will be some swelling at the incision site. You may use an ice pack to the incision area as needed for discomfort or swelling for t he first 24-48 hours but only use for 15-20 minutes at a time. The pain medication is to be taken as prescribed. Driving should be avoided whil e taking this pain medication. The pain medication can cause constipation which can be relieved with Milk of Magnesia. Office Visit: Signs and Symptoms to report Contact your health care provider if you experience any of the following symptom s: Any sign of infections such as drainage, redness, swelling, pain, chills, fever 101 or over, etc Please call your physician if you have any questions or problems. After clinic hours, please call 911 or come to the emergency room if you experie nce the above symptoms. GO TO THE EMERGENCY ROOM IF YOU HAVE ANY PROBLEMS PASSING URINE. * Attachments The following attachments cannot be sent through Care Everywhere.* HERNIA REPAIR : PRE-OP (BRAZILIAN) * SEDATION (BRAZILIAN) documented in this encounter Medications at Time [...] Drop in both eyes 2 times daily. 03/08/2015 04/05/2015 oxyCODONE-acetaminophen Take 1 Tab by 60 Tab 0 (PERCOCET) 5-325 mg mouth every 4 tabletIndications: Back hours as pain needed for Pain, Break-Through . Max Daily Amount: 6 Tabs 01/23/2015 07/22/2015 NEXIUM 40 mg Capsule, Take 1 Cap by 30 Cap 5 Delayed Release(E.C.) mouth daily before breakfast. 01/03/2015 04/23/2015 HYDROcodone-acetaminophen Take 1 Tab by 50 Tab 0 (NORCO) 5-325 mg tablet mouth every 4 hours as needed for Pain may take one or two tabs every 4 hours as needed for pain.. Max Daily Amount: 6 Tabs 01/03/2015 08/26/2015 tiZANidine (ZANAFLEX) 4 Take 1 Tab (4 30 Tab 0 mg Tablet mg) by mouth every 8 hours as needed for Spasm. 12/21/2014 06/24/2015 OLANZapine (ZYPREXA) 2.5 Take 1 Tab by 30 Tab 5 mg tablet mouth daily at bedtime. 12/13/2014 03/15/2015 phenytoin sodium extended TAKE 2 90 Cap 2 release (DILANTIN) 100 mg CAPSULES BY capsule MOUTH EVERY MORNING AND ONE CAPSULE AT BEDTIME. 12/06/2014 08/26/2015 ezetimibe (ZETIA) 10 mg Take 1 Tab by 30 Tab 5 tablet mouth daily at bedtime. 12/06/2014 05/13/2015 LORazepam (ATIVAN) 1 mg TAKE ONE 60 Tab 3 tablet TABLET BY MOUTH 2 TIMES A DAY. 12/06/2014 06/03/2015 bethanechol (URECHOLINE) TAKE ONE 120 Tab 5 25 mg tablet TABLET BY MOUTH FOUR TIMES A DAY 12/06/2014 06/03/2015 traZODone (DESYREL) 50 mg Take 1 Tab by 30 Tab 5 tabletIndications: mouth daily Depression at bedtime. 12/06/2014 03/15/2015 zolpidem (AMBIEN) 10 mg TAKE 1 TABLET 30 Tab 3 tablet BY MOUTH AT BEDTIME NEEDED. 12/06/2014 06/10/2015 clopidogrel (PLAVIX) 75 Take 1 Tab by 30 Tab 5 mg Tablet mouth daily. 12/06/2014 06/10/2015 FLUoxetine (PROZAC) 20 mg Take 2 Tabs 60 Tab 5 tablet by mouth daily. take 2 capsules daily 12/06/2014 06/03/2015 tamsulosin (FLOMAX) 0.4 TAKE ONE 30 Cap 5 mg Extended Release 24 CAPSULE BY hour capsule MOUTH EVERY DAY 30 MINUTES AFTER SUPPER 10/26/2014 10/28/2015 ramipril (ALTACE) 10 mg Take [...] 60 Cap 5 capsule by mouth daily. 09/22/2014 03/25/2015 fenofibrate Take 1 Tab by 30 Tab 5 nanocrystallized (TRICOR) mouth daily 145 mg tablet with supper. 09/07/2014 03/25/2015 simvastatin (ZOCOR) 40 mg TAKE ONE 90 Tab 1 tablet TABLET (40MG) BY MOUTH EVERY DAY IN THE EVENING 08/24/2014 08/19/2015 loratadine (CLARITIN) 10 Take 1 Tab by 30 Tab 11 mg tablet mouth daily. 08/24/2014 09/09/2015 isosorbide mononitrate TAKE ONE 60 Tab 11 (IMDUR) 60 mg Extended TABLET BY Release 24 hour tablet MOUTH 2 TIMES A DAY 06/14/2014 10/07/2015 fluticasone (FLONASE) 50 Administer 2 16 Gram 5 mcg/spray Ramsay, Sprays in Suspension each nostril daily. 11/14/2013 [...] as of this encounter H&P Notes * Mary Zhou MD - 03/08/2015 8:01 AM CDT Patient examined; history and physical reviewed and no changes noted. Will proc eed with right inguinal hernia repair with mesh. documented in this encounter OR Notes * Operative Report - Mary Zhou MD - 03/08/2015 10:12 AM CDT Herniorrhaphy Procedure Note Indications: The patient has a symptomatic right inguinal hernia. Pre-operative Diagnosis: right inguinal hernia Post-operative Diagnosis: right inguinal hernia Surgeon: Mary Zhou MD Assistants: none Anesthesia: Spinal anesthesia ASA Class: 3 Procedure Details The patient was seen in the Holding Room. The risks, benefits, complications, tr eatment options, and expected outcomes were discussed with the patient. The poss ibilities of reaction to medication, pain, infection, bleeding, heart attack, de ath, injury to internal organs, recurrence, testicular damage, infertility, or n eed for further surgery were discussed with the patient. The patient concurred w ith the proposed plan, giving informed consent. The site of surgery properly no roma/marked. The patient was taken to the operating theatre, identified as Vargas Dalton and the procedure verified as Inguinal Herniorrhaphy with Mesh. A Ti me Out was held and the above information confirmed. The patient was placed supine. After the patient was anesthetized, the right gr oin was prepped and draped in the standard fashion. Marcaine 0.5% was used to an esthetize the skin over the inguinal ligament and for ilioinguinal block. A low transverse incision was created in the right groin, carried down throught the subcutaneious tissues with cautery. The external oblique fascia was identif ied and incised parallel to its fibers. A direct hernia was identified. The her jorge sac was mobilized from the surrounding cord structures. The sac was opened a nd found to contain no abdominal contents. A high ligation was performed and th e sac was submitted to pathology. A piece of Bard 3D medium mesh was then place d in the retroperitoneal space behind the right rectus muscle. No sutures were placed. The external aponeurosis was closed with interrupted 0 Vicryl. The w ound was irrigated with sterile normal saline. Subcutaneous layer was closed wi th interrupted 2-0 Vicryl. Skin incision closed with skin dominic. Dry dressin gs complete the procedure. Findings: right direct hernia Estimated Blood Loss: Minimal Drains: none Specimens: right inguinal hernia sac Complications: None; patient tolerated the procedure well. Attending Attestation: I performed the procedure. Patient was transferred to PACU in stable condition. * Zohra-OP - Leila Coffman RN - 03/08/2015 10:00 AM CDT Triple antibiotic ointment 1 tube placed on sterile field. * Anesthesia Handoff - Candace Salcedo CRNA - 03/08/2015 9:45 AM CDT Post Anesthesia Evaluation Sign Out Vitals: BP 132/70 | Pulse 66 | Temp(Src) 97.4 F (36.3 C) (Temporal) | Re sp 18 | Ht 5' 5" (1.651 m) | Wt 189 lb (85.73 kg) | BMI 31.45 kg/m2 | SpO2 98% Pain Ratin Nausea/Vomiting: no nausea and no vomiting Post-Op hydration: well hydrated Respiratory function: no respiratory symptoms Airway patency: normal Cardiovascular function: Normal - Regular rate and rhythm Mental status, LOC: 0=alert; keenly responsive Candace Salcedo CRNA 03/08/2015; 9:45 AM * OR Anesthesia - Candace Salcedo CRNA - 03/08/2015 9:44 AM CDT Post Operative Anesthesia Note Patient: Oliverio Dalton Medical record: [id number] Post: HERNIA INGUINAL REPAIR Anesthesia Problems: No anesthesia problems/complications 03/08/2015, 9:44 AM Candace Salcedo CRNA * Zohra-OP - Leila Coffman RN - 03/08/2015 8:53 AM CDT Sensorcaine 0.5% 50 ml 2nd bottle placed on sterile field. * Zohra-OP - Leila Coffman RN - 03/08/2015 8:43 AM CDT Sensorcaine 0.5% 50 ml placed on sterile field. * OR Anesthesia - Candace Salcedo CRNA - 03/08/2015 8:41 AM CDT Subjective: 03/08/2015 , the patient was interviewed in the Pre-Op. Patient is a 64 y.o. Cauca vinnie male scheduled for Procedure(s): HERNIA INGUINAL REPAIR. Medical record [id number]. Patient Active Problem List Diagnosis Date Noted Right inguinal hernia 03/04/2015 Status post colonoscopy 01/10/2014 Diabetes mellitus 04/25/2013 CAD (coronary artery disease) 04/25/2013 COPD (chronic obstructive pulmonary disease) 04/25/2013 Seizure disorder 04/25/2013 Depression 04/25/2013 Suicidal behavior 04/25/2013 Carpal tunnel syndrome 11/30/2012 Osteoarthritis of right knee 10/24/2012 LFT elevation 10/13/2012 Renal stone 10/12/2012 Back pain 10/12/2012 Bradycardia 09/05/2012 Status post laparoscopic appendectomy 05/28/2012 Umbilical hernia without mention of obstruction or gangrene 05/28/2012 MRSA (methicillin resistant staph aureus) culture positive 09/12/2010 Tubular Adenoma 02/05/2009 Hyperlipidemia 11/12/2008 Unspecified essential hypertension BPH w/o Urinary Obs/LUTS Neurogenic bladder, NOS Unspecified Glaucoma Bipolar Disorder, Unspecified Past Medical History Diagnosis Date Wrist sprain [...] when pfrmd 02/01/2009 COLONOSCOPY performed by MARY ZHOU at [facility] OR Hx hernia repair 1988 And age 4 Hx lap cholecystectomy 05/17/07 Hx coronary artery bypass graft Hx heart catheterization 04/10 With angioplasty, 2 stents Pr lap,appendectomy 05/28/2012 APPENDECTOMY LAPAROSCOPIC performed by Mary Zhou MD [place] [facility] [place] Pr repair umbilical colleen,4+y/o,reduc 05/28/2012 HERNIA UMBILICAL REPAIR performed by Mary Zhou MD at [facility] [place] Pr colonoscopy flx dx w/collj spec when pfrmd 12/28/2013 COLONOSCOPY performed by Mary Zhou MD at [facility] [place] History Social History Marital Status: Spouse Name: N/A Number of Children: N/A Years of Education: N/A Occupational History Disabled Social History Main Topics Smoking status: Current Every Day Smoker -- 1.00 packs/day for 40 years Types: Cigarettes Last Attempt to Quit: 03/08/1995 Smokeless tobacco: Never Used Comment: Restarted smoking cigarettes 1 pack every two weeks since 05/2013. Alcohol Use: No Drug Use: No Sexual Activity: Partners: Female Other Topics Concern Not on file Social History Narrative No current facility-administered medications on file prior to encounter. Current Outpatient Prescriptions on File Prior to Encounter Medication Sig Dispense Refill NEXIUM 40 mg [...] mouth daily at bedtime. 30 Tab 5 phenytoin sodium extended release (DILANTIN) 100 mg capsule TAKE 2 CAPSULES BY MOUTH EVERY MORNING AND ONE CAPSULE AT BEDTIME. 90 Cap 2 ezetimibe (ZETIA) 10 mg tablet Take 1 [...] daily at bedtime. 30 T ab 5 zolpidem (AMBIEN) 10 mg tablet TAKE 1 TABLET BY MOUTH AT BEDTIME NEEDED. 30 Tab 3 clopidogrel (PLAVIX) 75 mg Tablet Take 1 Tab by mouth daily. 30 Tab 5 tamsulosin (FLOMAX) 0.4 mg Extended Release 24 hour capsule TAKE ONE CAPSULE BY MOUTH EVERY DAY 30 MINUTES AFTER SUPPER 30 Cap 5 ramipril (ALTACE) 10 mg capsule Take 1 Cap by mouth daily. 90 Cap 3 pioglitazone (ACTOS) 30 mg tablet Take 1 Tab by mouth daily. 90 Tab 3 FLUoxetine (PROZAC) 20 mg capsule Take 2 [...] 60 Tab 11 fluticasone (FLONASE) 50 mcg/spray Ramsay, Suspension Administer 2 Sprays in each nostril [...] units at bedtime 10 mL 1 1 ASPIRIN EC 81 mg Oral TbEC Take 81 mg by mouth daily. MULTIVITAMIN PO Take 1 Tab by mouth daily with lunch. BETIMOL 0.5 % OP Drop Administer 1 Drop in both eyes 2 times daily. oxyCODONE-acetaminophen (PERCOCET) 5-325 mg tablet Take 1 Tab by mouth every 6 hours as needed for Pain, Moderate. Max Daily Amount: 4 Tabs 30 Tab 0 FLUoxetine (PROZAC) 20 mg tablet Take 2 Tabs by mouth daily. take 2 capsules daily 60 Tab 5 NITROSTAT 0.4 mg Tablet, Sublingual Place 1 Tab under tongue every 5 minutes as needed for Chest Pain. 25 Tab PRN prochlorperazine maleate (COMPAZINE) 10 mg tablet Take 10 mg by mouth every 6 hours as needed. naproxen sodium 220 mg Oral Cap Take by mouth daily. 2 tablets daily blood sugar diagnostic (ACCU-CHEK ACTIVE TEST) Misc Strp In the am & pm prn 1 Package 0 magnesium oxide 250 mg Oral Tab Take 1 Tab by mouth 3 times daily. ALBUTEROL IN Take 2 Puffs by inhalation every 6 hours as needed Current facility-administered medications:lactated ringers solution, , IV, Cj Abelardo luna Wan-Lin, MD, Last Rate: 100 mL/hr at 03/08/15 0716; clindamycin ( CLEOCIN) IVPB 600 mg, 600 mg, IV, ONCE, Mary Zhou MD; ipratropium-albuter ol (DUONEB) 0.5 mg-3 mg(2.5 mg base)/3 mL inhalation solution 3 mL, 3 mL, Inhala tion, Resp Once, Mary Zhou MD Allergies Allergen Reactions Codeine Unknown Doxycycline Rash Phenobarbital Weakness "relaxes me too much" Piperacillin-Tazobactam Hives and Rash Breaks out Terazosin Other (See Comments) Chest heaviness, chest pain Valium [Diazepam] Other (See Comments) "stops breathing, no pulse" Unresponsiveness "stops breathing, no pulse" Anesthesia Concerns The patient had a CABG in 1999 and he says 15 cardiac stents since. The last st ent was 5 or 6 years ago. He is not having any chest pain. He is a 39 year smo ker and has bad lungs. He is to have an albuterol treatment before anesthesia. I talked to him about spinal with sedation. ASA Risk ASA 3 - Patient with moderate systemic disease with functional limitations Plan: Monitoring explained. Airway assessment was perfomed; a Mallampati score of II (soft palate, uvula, fauces visible) was given. The risks and benefits of the p roposed anesthetic have been discussed with patient. The patient/designee has a greed to Spinal with GETA as a backup. Anesthesia guideline orders initiated. documented in this encounter Plan of Treatment Not on filedocumented as of this encounter Procedures Comments Procedure Name Priority Date/Time Associated Diag nosis OXYGEN VIA DEVICE TO KEEP Routine 03/08/2015 O2 SAT ABOVE 9:46 AM CDT PATHOLOGY Routine 03/08/2015 9:09 AM CDT HERNIA INGUINAL REPAIR 03/08/2015 7:52 AM CDT POC GLUCOSE Stat 03/08/2015 7:28 AM CDT MRSA PCR RAPID SCREEN Stat 03/08/2015 6:55 AM CDT documented in this encounter Results * PATHOLOGY (03/08/2015 9:09 AM CDT) CASE REPORT Surgical Pathology Report [facility] Case: [id number] [facility] Authorizing Provider: Mary Zhou MD Collected: 03/08/2015 09:09 AM Ordering Location: [facility] Received: 03/08/2015 03:26 PM Operating Room Pathologist: David Ferrer MD Specimen: Right inguinal hernia sac. FINAL DIAGNOSIS Right inguinal hernia sac: [place] E lectronically Hernia sac tissues. PATHOLOGY signed by Joana, CPT Code: 59233 CONSULTANTKyung, ROLAND Pizano MD on ICD9 Code: 550.90 03/11/2015 at 11:47 AM Micro exam performed at [facility], [address] [place] [address]. [id number] OPERATIVE Inguinal hernia repair. [facility] PROCEDURE PATHOLOGY CONSULTANTROLAND Tracey GROSS The specimen is labeled right [facility] DESCRIPTION inguinal hernia sac. Received PATHOLO GY in formalin are two specimens. CONSULTANTROLAND Tracey The first is a piece of brown to yellow-red fatty tissue measuring 14.2x2.7x0.7 cm in greatest dimension. The second specimen is a pouch of membranous wrinkled parsons-pink to brown tissue measuring 5.9x4.5x1 cm. Membranous tissue varies in thickness. A client relations representative cross section of both specimens submitted in one cassette. Gross exam performed at [facility], [address] [place] [address]. [id number] MICROSCOPIC Sections reveal membranous [facility] DESCRIPTION fibrovascular connective PATHOLOGY tissue with lobulated fatty CONSULTANTROLAND Tracey tissue and additional sections of fat. Hemorrhage is focally seen in the fatty tissue. Surfaces of the membranous tissue are lined by a single flat layer of mesothelial cells. EMBEDDED IMAGE [facility] ROLAND WELCH Specimen Tissue Performing Organization Address City/[facility] Ph one Number [facility] CLIA# [id number] [place] [phone] ROLAND WELCH [address] [place] [address] PATHOLOGY CLIA# [id number] [place] [address] [phone]CH [address] [place] [address] * POC GLUCOSE (03/08/2015 7:28 AM CDT) POC GLUCOSE 163 (H) 70 - 100 mg/dL [facility] Specimen Blood, capillary Performing Organization Address City/[facility] Ph one Number [facility] CLIA# [id number] [place], [place] [address] [address] * MRSA PCR RAPID SCREEN (03/08/2015 6:55 AM CDT) MRSA PCR RESULT MRSA not detected MRSA not detected [facility] Specimen Other, specify - Nares Narrative Performed At PLEASE NOTE: This test has not been a pproved to monitor effectiveness of MRSA [facility] decolonization. Residual DNA may temporarily be pre sent after successful [facility] decolonization. This test was performed using an FDA approved [facility] methodology. A POSITIVE result indicates the presenc e of MRSA target DNA. A NEGATIVE result indicates the absence of MRSA target DNA. An INVALID result indicates the presenc e or absence of MRSA target DNA could not be determined. Performing Organization Address City/[facility] Ph one Number [facility] CLIA# [id number] [place], [place] [address] [address] documented in this encounter Visit Diagnoses Not on filedocumented in this encounter Administered Medications Action Date Dose Rate Site Medication Order MAR Action 03/08/2015 8:07 AM CDT 600 mg clindamycin (CLEOCIN) IVPB 600 mg New Bag 600 mg, IV, ONE TIME ONLY, 1 dose, Wed03/08/15 at 0700, Routine, Pre-op, Antibiotic Indication: Surgical prophylaxis 03/08/2015 7:55 AM CDT 3 mL ipratropium-albuterol (DUONEB) 0.5 mg-3 Given mg(2.5 mg base)/3 mL inhalation solutio n 3 mL 3 mL, Inhalation, ONE TIME ONLY RESPIRATORY, 1 dose, 03/08/15 at 0745 , Stat 03/08/2015 7:16 AM CDT 100 mL/hr lactated ringers solution New Bag IV, at 100 mL/hr, CONTINUOUS, Starting Wed03/08/15 at 0700, Until 03/09/15 at 0205, Routine, Pre-op 03/08/2015 11:03 AM CDT 1 Tablet oxyCODONE-acetaminophen (PERCOCET) Given 10-325 mg per tablet 1 Tab 1 Tablet, Oral, ONE TIME ONLY, 1 dose, Wed03/08/15 at 1100, Stat documented in this encounter
--- OUTSIDE RECORDS SUMMARY | 2020-03-24 14:12 | XMS REPORT | Encounter Summary ---
Author Author [facility] Organization [facility] Address Unknown Phone Unavailable Care Team Providers Care Cut And Cover Line Worker Name Role Phone Shahram Mccallum MD PCP Unavailable Reason for Visit * Reason Comments Medication Refill Encounter Details Care Team Description Date Type Department Jada Fernandez MD NO ADDRESS ON FILE 03/15/2015 Refill [facility] Prim[facility] y Care [place] [address] [place] [address] Social History Date Tobacco Use [...] encounter Miscellaneous Notes * Telephone Encounter - Allegra Peck - 03/15/2015 2:55 PM CDT LAST OVE WITH PCP 02/25/15. ROUTED TO ON-CALL PHYSICIAN FOR AUTHORIZATION. LAST REFILL 02/07/15. documented in this encounter Plan of Treatment Not on filedocumented as of this encounter Visit Diagnoses Not on filedocumented in this encounter
--- OUTSIDE RECORDS SUMMARY | 2020-03-24 14:12 | XMS REPORT | Encounter Summary ---
Author Author [facility] Organization [facility] Address Unknown Phone Unavailable Care Team Providers Care Import Specialist Name Role Phone Shahram Mccallum MD PCP Unavailable Reason for Visit * Reason Comments Hand Injury Encounter Details Care Team Description Date Type Department Jada Fernandez MD NO ADDRESS ON FILE Contusion of right hand, initial encount er (Primary Dx); Right wrist sprain, initial encounter 03/05/2015 Emergency [facility] Emergency Department [address] [phone] Social History Date Tobacco Use Types Packs/Day [...] Signs Reading Time Taken Comments Vital Sign 112/62 03/05/2015 8:35 PM CDT Blood Pressure - - Pulse 36.4 C (97.6 F) 03/05/2015 8:35 PM CDT Temperature 19 03/05/2015 8:35 PM CDT Respiratory Rate 95% 03/05/2015 8:35 PM CDT Oxygen Saturation - - Inhaled Oxygen Concentration 83.9 kg (185 lb) 03/05/2015 8:35 PM CDT Weight 170.2 cm (5' 7") 03/05/2015 8:35 PM CDT Height 28.98 03/05/2015 8:35 PM CDT Body Mass Index documented in this encounter Discharge Instructions * Instructions* Nayely Duff, RN - 03/05/2015 Splint for comfort Medication as ordered Follow up with primary dr if symptoms worsen * Attachments The following attachments cannot be sent through Care Everywhere.* WRIST SPRAIN (LIBYAN) * HYDROCODONE (ORAL) (LIBYAN) documented in this encounter Medications at Time [...] Break-Through . Max Daily Amount: 6 Tabs 03/05/2015 03/08/2015 HYDROcodone-acetaminophen Take 1 Tab by 6 Tab 0 (NORCO) 5-325 mg tablet mouth every 4 hours as needed for Pain, Moderate. Max Daily Amount: 6 Tabs 03/05/2015 03/08/2015 HYDROcodone-acetaminophen Take 1 Tab by 20 Tab 0 (NORCO) 5-325 mg tablet mouth every 4 hours as needed for Pain, Moderate. Max Daily Amount: 6 Tabs 02/25/2015 03/08/2015 oxyCODONE-acetaminophen Take 1 Tab by 30 Tab 0 (PERCOCET) 5-325 mg mouth every 6 tabletIndications: Back hours as pain needed for Pain, Moderate. Max Daily Amount: 4 Tabs 01/23/2015 07/22/2015 NEXIUM 40 mg Capsule, [...] 50 Administer 2 16 Gram 5 mcg/spray [employer], Sprays in Suspension each nostril daily. 11/14/2013 [...] ED Notes * Kaye Fernandez MD - 03/05/2015 8:47 PM CDT HISTORY OF PRESENT ILLNESS Oliverio Dalton, a 64 y.o. male presents to the ED with a Chief Complaint of [place] nd Injury Subjective HPI Comments: Stumbled over dog and hit dorsum R hand and wrist on a door. Pain, no swelling. Hand Injury Associated symptoms: no fever and [...] Negative for difficulty urinating. Musculoskeletal: Positive for myalgias and arthralgias. Negative for neck pain. PAST MEDICAL HISTORY REVIEWED MEDICAL: Patient has a past medical history of Wrist sprain (08/10); Contusion, back (); Cataract; Unspecified disease of respiratory system; Glaucoma; Asthma; D iabetes; Seizure disorder; Unspecified disorder of lipoid metabolism; Coronary a rtery disease; Chronic ischemic heart disease, unspecified; Unspecified essentia l hypertension; COPD (chronic obstructive pulmonary disease); and Anxiety. SURGICAL: Patient has past surgical history that [...] lap,appendectomy ( 05/28/2012); repair umbilical colleen,4+y/o,reduc (05/28/2012); and colonoscopy flx d x w/collj spec when pfrmd (12/28/2013). FAMILY: Patient's family history includes Asthma in [...] file PROBLEM LIST: Patient has Renal stone; Unspecified essential hypertension; BPH w/o Urinary Obs /LUTS; Neurogenic bladder, NOS; Unspecified Glaucoma; Bipolar Disorder, Unspecif ied; Hyperlipidemia; Tubular Adenoma; MRSA (methicillin resistant staph aureus) culture positive; Status post laparoscopic appendectomy; Umbilical hernia withou t mention of obstruction or gangrene; Bradycardia; Back pain; LFT elevation; Ost eoarthritis of right knee; Carpal tunnel syndrome; Diabetes mellitus; CAD (coron rolando artery disease); COPD (chronic obstructive pulmonary disease); Seizure disor fatuma; Depression; Suicidal behavior; Status post colonoscopy; and Right inguinal hernia on his problem list. ALLERGIES Codeine; Doxycycline; Phenobarbital; Piperacillin-tazobactam; Terazosin; and Flores ium HOME MEDICATIONS Patient's Home Medications Current Home Medications ALBUTEROL (PROAIR HFA) 90 MCG/ACTUATION HFA AEROSOL INHALER HFA INHALER ALBUTEROL IN ASPIRIN EC 81 MG ORAL TBEC BETHANECHOL (URECHOLINE) 25 MG TABLET BETIMOL 0.5 % OP DROP BLOOD SUGAR DIAGNOSTIC (ACCU-CHEK ACTIVE TEST) MISC STRP CLOPIDOGREL (PLAVIX) 75 MG TABLET EZETIMIBE (ZETIA) 10 MG TABLET FENOFIBRATE NANOCRYSTALLIZED (TRICOR) 145 MG TABLET FLUOXETINE (PROZAC) 20 MG CAPSULE FLUOXETINE (PROZAC) 20 MG TABLET FLUTICASONE (FLONASE) 50 MCG/SPRAY SPRAY, SUSPENSION FLUTICASONE (FLOVENT HFA) 110 MCG/ACTUATION AEROSOL HYDROCODONE-ACETAMINOPHEN (NORCO) 5-325 MG TABLET INSULIN GLARGINE (LANTUS) 100 UNIT/ML SOLUTION ISOSORBIDE MONONITRATE (IMDUR) 60 MG EXTENDED RELEASE 24 HOUR TABLET LORATADINE (CLARITIN) 10 MG TABLET LORAZEPAM (ATIVAN) 1 MG TABLET MAGNESIUM OXIDE 250 MG ORAL TAB MULTIVITAMIN PO NAPROXEN SODIUM 220 MG ORAL CAP NEXIUM 40 MG CAPSULE, DELAYED RELEASE(E.C.) NITROSTAT 0.4 MG TABLET, SUBLINGUAL OLANZAPINE (ZYPREXA) 2.5 MG TABLET OXYCODONE-ACETAMINOPHEN (PERCOCET) 5-325 MG TABLET PHENYTOIN SODIUM EXTENDED RELEASE (DILANTIN) 100 MG CAPSULE PIOGLITAZONE (ACTOS) 30 MG TABLET PROCHLORPERAZINE MALEATE (COMPAZINE) 10 MG TABLET RAMIPRIL (ALTACE) 10 MG CAPSULE SIMVASTATIN (ZOCOR) 40 MG TABLET TAMSULOSIN (FLOMAX) 0.4 MG EXTENDED RELEASE 24 HOUR CAPSULE TIZANIDINE (ZANAFLEX) 4 MG TABLET TRAZODONE (DESYREL) 50 MG TABLET ZOLPIDEM (AMBIEN) 10 MG TABLET Medications Modified during this Encounter Medications Discontinued during this Encounter Objective PHYSICAL EXAM INITIAL VS BP: 112/62 mmHg (03/05/152034), Heart Rate (Monitored): 75 bpm (03/05/152034), Resp: 19 (03/05/152034), Temp: 97.6 F (36.4 C) (03/05/152034), Temp src: Tympanic (03/05/152034), SpO2: 95 % (03/05/152034), Height: 5' 7" (170.2 cm) ( 03/05/152034), Weight: 83.915 kg (03/05/152034), BMI (Calculated): 29.04 (02/07) No LMP for male patient. Physical Exam [...] Normal range of motion. He exhibits tenderness (dorsum R hand a nd wrist). Neurological: He is alert and oriented to person, place, and time. Skin: Skin is warm and dry. Nursing note and vitals reviewed. DIAGNOSTICS LAB: RADIOLOGY: XR HAND 3+ VW RIGHT (Results Pending) neg for fracture or dislocation EKG: PROCEDURES Procedures MEDICAL DECISION MAKING AND PLAN OF CARE REEVALUATION CASE DISCUSSED . New Prescriptions for this Encounter HYDROCODONE-ACETAMINOPHEN (NORCO) 5-325 MG TABLET Take 1 Tab by mouth every 4 hours as needed for Pain, Moderate. Max Daily Amount: 6 Tabs HYDROCODONE-ACETAMINOPHEN (NORCO) 5-325 MG TABLET Take 1 Tab by mouth every 4 hours as needed for Pain, Moderate. Max Daily Amount: 6 Tabs LAST VS BP: 112/62 mmHg (03/05/152034), Heart Rate (Monitored): 75 bpm (03/05/152034), Resp: 19 (03/05/152034), Temp: 97.6 F (36.4 C) (03/05/152034), Temp src: Tympanic (03/05/152034), SpO2: 95 % (03/05/152034) CLINICAL IMPRESSION Final diagnoses: [923.20] Contusion of right hand, initial encounter (Primary) [842.00] Right wrist sprain, initial encounter CODING MDM Coding Reviewed: previous chart and vitals Reviewed previous: x-ray Interpretation: x-ray DISPOSITION, EDUCATION AND MEDICATION RECONCILIATION Medications reconciled. See after visit summary for patient education on discha rged patients. Splint, cold, analgesia, follow up with PCP if symptoms worsen or persist * Nayely Duff RN - 03/05/2015 8:38 PM CDT Pt states he struck hand on a door causing right hand and wrist pain. Pt able t o move all digits on right hand. documented in this encounter Plan of Treatment Not on filedocumented as of this encounter Procedures Comments Procedure Name Priority Date/Time Associated Diag nosis XR HAND 3+ VW RIGHT Stat 03/05/2015 8:54 PM CDT documented in this encounter Results * XR HAND 3+ VW RIGHT (03/05/2015 8:54 PM CDT) Specimen Impressions Performed At IMPRESSION: INTERFACE SYSTEM No acute fracture or dislocation identi fied. Chronic healed fracture deformities of the distal fourth and fifth metacarpal bones. Electronically Signed By: Kishan Kasper MD, Signed On: 03/06/2015 8:36 AM Narrative Performed At EXAM: 3 views right hand INTERFACE SYSTEM CLINICAL INDICATION: Right hand pain COMPARISON: None. FINDINGS: The osseous structures are intact. Surface Water Technician checo healed fracture deformities of the distal fourth and fifth metacarpals are noted. No acute fractur e or dislocation identified. Procedure Note Interface, [facility] [place] Results - 03/06/2015 10:36 AM CDT EXAM: 3 views right hand CLINICAL INDICATION: Right hand pain COMPARISON: None. FINDINGS: The osseous structures are intact. Chronic healed fracture deformities of the distal fourth and fifth metacarpals are noted. No acute fracture or dislocation identified. IMPRESSION IMPRESSION: No acute fracture or dislocation identified. Chronic healed fracture deformities of the distal fourth and fifth metacarpal bones. Electronically Signed By: Kishan Kasper MD, Signed On: 03/06/2015 8:36 AM Performing Organization Address City/State/Zipcode Ph one Number INTERFACE SYSTEM INTERFACE SYSTEM Refer to clinic/hospital department documented in this encounter Visit Diagnoses Diagnosis Contusion of right hand, initial encoun ter - Primary Right wrist sprain, initial encounter documented in this encounter
--- OUTSIDE RECORDS SUMMARY | 2020-03-24 14:12 | XMS REPORT | Encounter Summary ---
Author Author [facility] Organization [facility] Address Unknown Phone Unavailable Care Team Providers Care Tube Winder Name Role Phone Shahram Mccallum MD PCP Unavailable Reason for Visit * Reason Comments Medication Refill Encounter Details Care Team Description Date Type Department Shahram Mccallum MD NO ADDRESS ON FILE 03/15/2015 Refill [facility] Primar y Care [place] [address] [place] [phone] Social History Date Tobacco Use [...] Telephone Encounter - Allegra Peck - 03/15/2015 1:58 PM CDT LAST OVE WITH PCP 02/25/15. ROUTED TO ON-CALL PHYSICIAN FOR APPROVAL/DENIAL. documented in this encounter Plan of Treatment Not on filedocumented as of this encounter Visit Diagnoses Not on filedocumented in this encounter
--- OUTSIDE RECORDS SUMMARY | 2020-03-24 14:12 | XMS REPORT | Encounter Summary ---
Author Author [facility] Organization [facility] Address Unknown Phone Unavailable Care Team Providers Care Psychological Operations Specialist Name Role Phone Shahram Mccallum MD PCP Unavailable Reason for Visit * Reason Comments Medication Refill Encounter Details Care Team Description Date Type Department Shahram Mccallum MD NO ADDRESS ON FILE 03/25/2015 Refill [facility] Primar y Care [address] [phone] Social History Date Tobacco Use Types Packs/Day [...]
--- OUTSIDE RECORDS SUMMARY | 2020-03-24 14:12 | XMS REPORT | Encounter Summary ---
Author Author [facility] Organization [facility] Address Unknown Phone Unavailable Care Team Providers Care Display Associate Name Role Phone Shahram Mccallum MD PCP Unavailable Reason for Visit * Reason Comments Hand Injury Pt has presented to ER with cc of right hand pain - pt reports that he struck his right hand into a metal cabi net. Encounter Details Care Team Description Date Type Department Jada Fernandez MD NO ADDRESS ON FILE Closed fracture of 5th metacarpal, initi al encounter (Primary Dx) 03/26/2015 Emergency [facility] Emergency Department [address] [id number] Social History Date Tobacco Use Types Packs/Day [...] Signs Reading Time Taken Comments Vital Sign 114/70 03/26/2015 4:38 PM CDT Blood Pressure - - Pulse 35.8 C (96.4 F) 03/26/2015 4:38 PM CDT Temperature 18 03/26/2015 4:38 PM CDT Respiratory Rate 96% 03/26/2015 4:38 PM CDT Oxygen Saturation - - Inhaled Oxygen Concentration 83.9 kg (185 lb) 03/26/2015 4:38 PM CDT Weight 167.6 cm (5' 6") 03/26/2015 4:38 PM CDT Height 29.86 03/26/2015 4:38 PM CDT Body Mass Index documented in this encounter Discharge Instructions * Attachments The following attachments cannot be sent through Care Everywhere.* HAND FRACTURE (DANISH) documented in this encounter Medications at Time [...] Drop in both eyes 2 times daily. 03/26/2015 04/23/2015 HYDROcodone-acetaminophen Take 1 Tab by 30 Tab 0 (NORCO) 5-325 mg tablet mouth every 4 hours as needed for Pain, Moderate. Max Daily Amount: 6 Tabs 03/25/2015 09/23/2015 simvastatin (ZOCOR) 40 mg TAKE ONE 90 Tab 1 tablet TABLET (40MG) BY MOUTH EVERY DAY IN THE EVENING 03/25/2015 09/23/2015 fenofibrate Take 1 Tab by 30 Tab 5 nanocrystallized (TRICOR) mouth daily 145 mg tablet with supper. 03/25/2015 05/27/2015 temazepam (RESTORIL) 15 Take 1 Cap 30 Cap 1 mg capsule (15 mg) by mouth nightly as needed for Insomnia. 03/15/2015 06/14/2015 phenytoin sodium extended TAKE 2 90 Cap 2 release (DILANTIN) 100 mg CAPSULES BY capsule MOUTH EVERY MORNING AND ONE CAPSULE AT BEDTIME. 03/08/2015 04/05/2015 oxyCODONE-acetaminophen Take 1 Tab by [...] 5 mg tablet mouth daily at bedtime. 12/06/2014 08/26/2015 ezetimibe (ZETIA) 10 mg Take [...] tabletIndications: mouth daily Depression at bedtime. 12/06/2014 06/10/2015 clopidogrel (PLAVIX) 75 Take 1 [...] 50 Administer 2 16 Gram 5 mcg/spray [place], Sprays in Suspension each nostril daily. 11/14/2013 [...] as of this encounter ED Notes * Aly Nance RN - 03/26/2015 5:06 PM CDT 4" OCL splint placed on right hand and secured with brendon wrap. PT tolerated well . * Kaye Fernandez MD - 03/26/2015 4:40 PM CDT Associated Order(s): BASIC FRACTURE AND FRACTURE DISLOCATION TREATMENT HISTORY OF PRESENT ILLNESS Oilverio Dalton, a 64 y.o. male presents to the ED with a Chief Complaint of [place] nd Injury Subjective HPI Comments: Pt upset today "having a mental breakdown" according to daughter, flung his hand up against a metal cabinet hitting the side of the hand. Daughter states that he then would not speak, she called EMS who came to the house, stat es vitals were stable and by that time he was acting normally and he was told he should come to the the ED and have the hand checked out. He had a wrist support from a recent injury that he put on without significant imrpovement History provided by: The patient and a relative Arrived by: Private vehicle Arrived from: Home Hand Injury Location: Hand Time since incident: 1 hour Injury: yes Hand location: Dorsum of R hand Pain details: Quality: Sharp Radiates to: Does not radiate Severity: Moderate Onset quality: Sudden Progression: Unchanged Chronicity: New Dislocation: no Foreign body present: No foreign bodies Relieved by: Nothing Worsened by: Movement Ineffective treatments: Immobilization Associated symptoms: decreased range of motion Associated symptoms: no fatigue, no fever, no numbness and no tingling REVIEW OF SYSTEMS Review of Systems Constitutional: Negative for fever, chills and fatigue. Eyes: Negative for visual disturbance. Respiratory: Negative for shortness of breath. Gastrointestinal: Negative for nausea. Musculoskeletal: Positive for joint swelling and arthralgias. Skin: Negative for wound. Neurological: Negative for tremors, syncope, facial asymmetry, speech difficulty , weakness and light-headedness. Psychiatric/Behavioral: Positive for agitation. PAST MEDICAL HISTORY REVIEWED MEDICAL: Patient has [...] fatuma; Depression; Suicidal behavior; Status post colonoscopy; Right inguinal colleen ia; and Status post right inguinal hernia repair on his problem list. ALLERGIES Codeine; Doxycycline; Penicillins; Phenobarbital; Piperacillin-tazobactam; Teraz osin; and Valium HOME MEDICATIONS Patient's Home Medications [...] POLYETHYLENE GLYCOL 3350 (MIRALAX) 17 GRAM/DOSE POWDER PROCHLORPERAZINE MALEATE (COMPAZINE) 10 MG TABLET RAMIPRIL (ALTACE) 10 MG CAPSULE SIMVASTATIN (ZOCOR) 40 MG TABLET TAMSULOSIN (FLOMAX) 0.4 MG EXTENDED RELEASE 24 HOUR CAPSULE TEMAZEPAM (RESTORIL) 15 MG CAPSULE TIZANIDINE (ZANAFLEX) 4 MG TABLET TRAZODONE (DESYREL) 50 MG TABLET Medications Modified during this Encounter Medications Discontinued during this Encounter Objective PHYSICAL EXAM INITIAL VS BP: 114/70 mmHg (03/26/151637), Heart Rate (Monitored): 85 bpm (03/26/151637), Resp: 18 (03/26/151637), Temp: 96.4 F (35.8 C) (03/26/151637), Temp src: Tympanic (03/26/151637), SpO2: 96 % (03/26/151637), Height: 5' 6" (167.6 cm) ( 03/26/151637), Weight: 83.915 kg (03/26/151637), BMI (Calculated): 29.92 (03/08) No LMP for male patient. Physical Exam Constitutional: He is oriented to person, place, and time. Strong smell of ETOH. No acute distress HENT: Head: Atraumatic. Eyes: Conjunctivae are normal. Cardiovascular: Normal rate, regular rhythm and normal heart sounds. Pulmonary/Chest: Effort normal and breath sounds normal. Musculoskeletal: Hands: Neurological: He is alert and oriented to person, place, and time. Speech slightly slurred Skin: Skin is warm and dry. Psychiatric: He has a normal mood and affect. His behavior is normal. DIAGNOSTICS LAB: RADIOLOGY: XR HAND 3+ VW RIGHT Radiologist Impression EXAM: 3 views of the right hand INDICATIONS: Hand pain. FINDINGS: Comparison is with prior study from 03/05/2015. There is a nondisplaced acute fracture along the base of the fifth metacarpal. No definite intra-articular extension is identified. There are chronic fractures involving the fourth and fifth metacarpal necks. There is foreshortening of both the fourth and fifth metacarpal. IMPRESSION IMPRESSION: Acute nondisplaced fracture involving the proximal aspect of the fifth metacarpal. Intra-articular extension is not visualized, but cannot be excluded based on the location of the fracture. Electronically Signed By: Taras Coombs MD, Signed On: 03/26/2015 4:55 PM EKG: PROCEDURES Fracture and Fracture Dislocation Date/Time: 03/26/2015 4:58 PM Performed by: LANI BUSH Authorized by: LANI BUSH Consent: Consent obtained: Verbal Consent given by: Patient Risks discussed: Pain Alternatives discussed: No treatment and referral Injury: Injury location: Hand MEDICAL DECISION MAKING AND PLAN OF CARE REEVALUATION CASE DISCUSSED . New Prescriptions for this Encounter HYDROCODONE-ACETAMINOPHEN (NORCO) 5-325 MG TABLET Take 1 Tab by mouth every 4 hours as needed for Pain, Moderate. Max Daily Amount: 6 Tabs LAST VS BP: 114/70 mmHg (03/26/151637), Heart Rate (Monitored): 85 bpm (03/26/151637), Resp: 18 (03/26/151637), Temp: 96.4 F (35.8 C) (03/26/151637), Temp src: Tympanic (03/26/151637), SpO2: 96 % (03/26/151637) CLINICAL IMPRESSION Final diagnoses: [815.09] Closed fracture of 5th metacarpal, initial encounter (Primary) CODING Coding DISPOSITION, EDUCATION AND MEDICATION RECONCILIATION Medications reconciled. See after visit summary for patient education on discha rged patients. Splint, cold, analgesia, follow up with PCP re further disposition after swellin g diminished, elevation, rest documented in this encounter Plan of Treatment Not on filedocumented as of this encounter Procedures Comments Procedure Name Priority Date/Time Associated Diag nosis BASIC FRACTURE AND Routine 03/26/2015 FRACTURE DISLOCATION 5:04 PM CDT TREATMENT XR HAND 3+ VW RIGHT Stat 03/26/2015 4:45 PM CDT documented in this encounter Results * BASIC FRACTURE AND FRACTURE DISLOCATION TREATMENT (03/26/2015 5:04 PM CDT) Narrative Performed At Kaye Fernandez MD 03/26/2015 5:04 PM HISTORY OF PRESENT ILLNESS Oliverio Dalton, a 64 y.o. male presen ts to the ED with a Chief Complaint of Hand Injury Subjective HPI Comments: Pt upset today "having a mental breakdown" according to daughter, flung his hand u p against a metal cabinet hitting the side of the hand. Daughter states that he then would not speak, she called EMS who came to [facility], states vitals were stable and by that time he was act ing normally and he was told he should come to the the ED and h ave the hand checked out. He had a wrist support from a recent in jury that he put on without significant imrpovement History provided by: The patient and a relative Arrived by: Private vehicle Arrived from: Home Hand Injury Location: Hand Time since incident: 1 hour Injury: yes Hand location: Dorsum of R hand Pain details: Quality: Sharp Radiates to: Does not radiate Severity: Moderate Onset quality: Sudden Progression: Unchanged Chronicity: New Dislocation: no Foreign body present: No foreign bodi es Relieved by: Nothing Worsened by: Movement Ineffective treatments: Immobilizatio n Associated symptoms: decreased range of motion Associated symptoms: no fatigue, no fev er, no numbness and no tingling REVIEW OF SYSTEMS Review of Systems Constitutional: Negative for fever, chi lls and fatigue. Eyes: Negative for visual disturbance. Respiratory: Negative for shortness of breath. Gastrointestinal: Negative for nausea. Musculoskeletal: Positive for joint swe lling and arthralgias. Skin: Negative for wound. Neurological: Negative for tremors, syn cope, facial asymmetry, speech difficulty, weakness and light-h eadedness. Psychiatric/Behavioral: Positive for ag itation. PAST MEDICAL HISTORY REVIEWED MEDICAL: Patient has a past medical history of Wrist sprain (08/10); Contusion, back (08/16/03); Cataract; Un specified disease of respiratory system; Glaucoma; Asthma; D iabetes; Seizure disorder; Unspecified disorder of lipoid metaboli sm; Coronary artery disease; Chronic ischemic heart disease , unspecified; Unspecified essential hypertension; COPD (chronic o bstructive pulmonary disease); and Anxiety. He also has no p ast medical history of Post-operative nausea and vomiting, Uns pecified adverse effect of anesthesia, Latex sensitivity, or Obstr uctive sleep apnea (adult) (pediatric). SURGICAL: Patient has past surgical history modesto t includes surgical other (05/2001); cataract removal (2000); surg ical other (2001); surgical other (1999); surgical other ( 11/2001); turp (08/2003); surgical other (04/12); surgical other ( 09/12); surgical other (08/14); psa (09/13); surgical other (); colonoscopy flx dx w/collj spec when pfrmd (02/01/2009); he rnia repair (1988); lap cholecystectomy (05/17/07); coronary art len bypass graft; heart catheterization (04/10); lap,appendectom y (05/28/2012); repair umbilical colleen,5+y/o,reduc (05/28/2012); colonoscopy flx dx w/collj spec when pfrmd (12/28/2013); an d hernia inguinal repair (Right, 03/08/2015). FAMILY: Patient's family history includes Asthm a in his mother and sister; Diabetes in his mother and sist er; Healthy in his daughter, daughter, daughter, son, son, son, and son; Heart Disease in his sister and son; Lung Can cer in his brother; Other in his father, mother, and sister; Resp iratory Disease in his mother and sister; Seizures in his brot her. SOCIAL: reports that he has been smoking [employer]ig[employer] ttes. He has a 40 pack-year smoking history. He has never used smokeless tobacco. He reports that he currently engages in sexual activity and has had female partners. He reports that he does not drink alcohol or use illicit drugs. No history on file. Social History Other Topics Concern Not on file PROBLEM LIST: Patient has Renal stone; Unspecified es sential hypertension; BPH w/o Urinary Obs/LUTS; Neurogenic bladde r, NOS; Unspecified Glaucoma; Bipolar Disorder, Unspecified ; Hyperlipidemia; Tubular Adenoma; MRSA (methicillin resistant st aph aureus) culture positive; Status post laparoscopic appe ndectomy; Umbilical hernia without mention of obstruction or gangr td; Bradycardia; Back pain; LFT elevation; Osteoarthritis of right knee; Carpal tunnel syndrome; Diabetes mellitus; CAD (coron rolando artery disease); COPD (chronic obstructive pulmonary disease) ; Seizure disorder; Depression; Suicidal behavior; Status p ost colonoscopy; Right inguinal hernia; and Status post right inguinal hernia repair on his problem list. ALLERGIES Codeine; Doxycycline; Penicillins; Phen obarbital; Piperacillin-tazobactam; Terazosin; and Valium HOME MEDICATIONS Patient's Home Medications Current Home Medications ALBUTEROL (PROAIR HFA) 90 MCG/ACTUATION HFA AEROSOL INHALER HFA INHALER ALBUTEROL IN ASPIRIN EC 81 MG ORAL TBEC BETHANECHOL (URECHOLINE) 25 MG TABLET BETIMOL 0.5 % OP DROP BLOOD SUGAR DIAGNOSTIC (ACCU-CHEK ACTIV E TEST) MISC STRP CLOPIDOGREL (PLAVIX) 75 MG TABLET EZETIMIBE (ZETIA) 10 MG TABLET FENOFIBRATE NANOCRYSTALLIZED (TRICOR) 1 45 MG TABLET FLUOXETINE (PROZAC) 20 MG CAPSULE FLUOXETINE (PROZAC) 20 MG TABLET FLUTICASONE (FLONASE) 50 MCG/SPRAY SPRA Y, SUSPENSION FLUTICASONE (FLOVENT HFA) 110 MCG/ACTUA TION AEROSOL HYDROCODONE-ACETAMINOPHEN (NORCO) 5-325 MG TABLET INSULIN GLARGINE (LANTUS) 100 UNIT/ML S OLUTION ISOSORBIDE MONONITRATE (IMDUR) 60 MG EX TENDED RELEASE 24 HOUR TABLET LORATADINE (CLARITIN) 10 MG TABLET LORAZEPAM (ATIVAN) 1 MG TABLET MAGNESIUM OXIDE 250 MG ORAL TAB MULTIVITAMIN PO NAPROXEN SODIUM 220 MG ORAL CAP NEXIUM 40 MG CAPSULE, DELAYED RELEASE(E .C.) NITROSTAT 0.4 MG TABLET, SUBLINGUAL OLANZAPINE (ZYPREXA) 2.5 MG TABLET OXYCODONE-ACETAMINOPHEN (PERCOCET) 5-32 5 MG TABLET PHENYTOIN SODIUM EXTENDED RELEASE (DILA NTIN) 100 MG CAPSULE PIOGLITAZONE (ACTOS) 30 MG TABLET POLYETHYLENE GLYCOL 3350 (MIRALAX) 17 G MAY/DOSE POWDER PROCHLORPERAZINE MALEATE (COMPAZINE) 10 MG TABLET RAMIPRIL (ALTACE) 10 MG CAPSULE SIMVASTATIN (ZOCOR) 40 MG TABLET TAMSULOSIN (FLOMAX) 0.4 MG EXTENDED REL EASE 24 HOUR CAPSULE TEMAZEPAM (RESTORIL) 15 MG CAPSULE TIZANIDINE (ZANAFLEX) 4 MG TABLET TRAZODONE (DESYREL) 50 MG TABLET Medications Modified during this Encoun ter Medications Discontinued during this En counter Objective PHYSICAL EXAM INITIAL VS BP: 114/70 mmHg (03/26/15 1638), Heart Rate (Monitored): 85 bpm (03/26/15 1638), Resp: 18 (03/26/15 163 8), Temp: 96.4 F (35.8 C) (03/26/15 1638), Temp src: Tympani c (03/26/15 1638), SpO2: 96 % (03/26/15 1638), Height: 5' 6" (167.6 cm) (03/26/15 1638), Weight: 83.915 kg (03/26/15 1638), BMI (Calculated): 29.92 (03/26/15 1638) No LMP for male patient . Physical Exam Constitutional: He is oriented to perso n, place, and time. Strong smell of ETOH. No acute distress HENT: Head: Atraumatic. Eyes: Conjunctivae are normal. Cardiovascular: Normal rate, regular rh ythm and normal heart sounds. Pulmonary/Chest: Effort normal and jess th sounds normal. Musculoskeletal: Hands: Neurological: He is alert and oriented to person, place, and time. Speech slightly slurred Skin: Skin is warm and dry. Psychiatric: He has a normal mood and a ffect. His behavior is normal. DIAGNOSTICS LAB: RADIOLOGY: XR HAND 3+ VW RIGHT Radiologist Impression EXAM: 3 views of the right hand INDICATIONS: Hand pain. FINDINGS: Comparison is with prior stud y from 03/05/2015. There is a nondisplaced acute fracture along the base of the fifth metacarpal. No definite intra-articular extension is identified . There are chronic fractures involving the fourth and fifth metacarpal necks. There is foreshorteni ng of both the fourth and fifth metacarpal. IMPRESSION IMPRESSION: Acute nondisplaced fracture involving t he proximal aspect of the fifth metacarpal. Intra-articular extension is not visualized, but cannot be excluded based on the location of the fracture. Electronically Signed By: Taras Coombs MD, Signed On: 03/26/2015 4:55 PM EKG: PROCEDURES Fracture and Fracture Dislocation Date/Time: 03/26/2015 4:58 PM Performed by: LANI BUSH Authorized by: LANI BUSH Consent: Consent obtained: Verbal Consent given by: Patient Risks discussed: Pain Alternatives discussed: No treatmen t and referral Injury: Injury location: Hand MEDICAL DECISION MAKING AND PLAN OF CAR E REEVALUATION CASE DISCUSSED . New Prescriptions for this Encounter HYDROCODONE-ACETAMINOPHEN (NORCO) 5-325 MG TABLET Take 1 Tab by mouth every 4 hours as needed for Pa in, Moderate. Max Daily Amount: 6 Tabs LAST VS BP: 114/70 mmHg (03/26/15 1638), Heart Rate (Monitored): 85 bpm (03/26/15 1638), Resp: 18 (03/26/15 163 8), Temp: 96.4 F (35.8 C) (03/26/15 1638), Temp src: Tympani c (03/26/15 1638), SpO2: 96 % (03/26/15 1638) CLINICAL IMPRESSION Final diagnoses: [815.09] Closed fracture of 5th metacar pal, initial encounter (Primary) CODING Coding DISPOSITION, EDUCATION AND MEDICATION R ECONCILIATION Medications reconciled. See after vis it summary for patient education on discharged patients. Splint, cold, analgesia, follow up with PCP re further disposition after swelling diminished, elevation, rest * XR HAND 3+ VW RIGHT (03/26/2015 4:45 PM CDT) Specimen Impressions Performed At IMPRESSION: INTERFACE SYSTEM Acute nondisplaced fracture involving t he proximal aspect of the fifth metacarpal. Intra-articular extension is not visualized, but cannot be excluded based on the location of the fracture. Electronically Signed By: Taras Coombs MD, Signed On: 03/26/2015 4:55 PM Narrative Performed At EXAM: 3 views of the right hand INTERFACE SYSTEM INDICATIONS: Hand pain. FINDINGS: Comparison is with prior stud y from 03/05/2015. There is a nondisplaced acute fracture along the base of the fifth metacarpal. No definite intra-articular extension is identified . There are chronic fractures involving the fourth and fifth metacarpal necks. There is foreshorteni ng of both the fourth and fifth metacarpal. Procedure Note Interface, [facility] Incoming Radiology Results - 03/26/2015 4:59 PM CDT EXAM: 3 views of the right hand INDICATIONS: Hand pain. FINDINGS: Comparison is with prior study from 03/05/2015. There is a nondisplaced acute fracture along the base of the fifth metacarpal. No definite intra-articular extension is identified. There are chronic fractures involving the fourth and fifth metacarpal necks. There is foreshortening of both the fourth and fifth metacarpal. IMPRESSION IMPRESSION: Acute nondisplaced fracture involving the proximal aspect of the fifth metacarpal. Intra-articular extension is not visualized, but cannot be excluded based on the location of the fracture. Electronically Signed By: Taras Coombs MD, Signed On: 03/26/2015 4:55 PM Performing Organization Address City/State/Zipcode Ph one Number INTERFACE SYSTEM INTERFACE SYSTEM Refer to clinic/hospital department documented in this encounter Visit Diagnoses Diagnosis Closed fracture of 5th metacarpal, init ial encounter - Primary documented in this encounter
--- OUTSIDE RECORDS SUMMARY | 2020-03-24 14:12 | XMS REPORT | Encounter Summary ---
Author Author [facility] Organization [facility] Address Unknown Phone Unavailable Care Team Providers Care Fisher Purse Seine Name Role Phone Shahram Mccallum MD PCP Unavailable Reason for Visit * Reason Comments Post-op Visit hernia repair X 2 weeks Follow Up X 1 week ago; pt c/o contin ued incisional pain Encounter Details Care Team Description Date Type Department Mary Zhou MD NO ADDRESS ON FILE Status post right inguinal hernia repair (Primary Dx) 03/25/2015 Office Visit [address] [address] Social History Date Tobacco Use [...] Signs Reading Time Taken Comments Vital Sign 138/70 03/25/2015 3:52 PM CDT Blood Pressure - - Pulse 37.2 C (99 F) 03/25/2015 3:52 PM CDT Temperature - - Respiratory Rate - - Oxygen Saturation - - Inhaled Oxygen Concentration 85.7 kg (189 lb) 03/25/2015 3:52 PM CDT Weight 167.6 cm (5' 6") 03/25/2015 3:52 PM CDT Height 30.51 03/25/2015 3:52 PM CDT Body Mass Index documented in this encounter Progress Notes * Mary Zhou MD - 03/27/2015 5:38 PM CDT Subjective: Patient noted intermittent swelling of the right groin. With swelling, there is hardness and increased pain. Swelling usually more prominent when up and about. Current Outpatient Prescriptions Medication Sig Dispense Refill simvastatin (ZOCOR) 40 mg tablet TAKE ONE TABLET (40MG) BY MOUTH EVERY DAY I N THE EVENING 90 Tab 1 fenofibrate nanocrystallized (TRICOR) 145 mg tablet Take 1 Tab by mouth jono y with supper. 30 Tab 5 phenytoin sodium extended release (DILANTIN) 100 mg capsule TAKE 2 CAPSULES BY MOUTH EVERY MORNING AND ONE CAPSULE AT BEDTIME. 90 Cap 2 oxyCODONE-acetaminophen (PERCOCET) 5-325 mg tablet Take [...] Tab by mouth daily. 30 Tab 11 fluticasone (FLONASE) 50 mcg/spray Bullock, Suspension Administer 2 Sprays in each nostril [...] Drop in both eyes 2 times daily. HYDROcodone-acetaminophen (NORCO) 5-325 mg tablet Take 1 Tab by mouth every 4 hours as needed for Pain, Moderate. Max Daily Amount: 6 Tabs 30 Tab 0 temazepam (RESTORIL) 15 mg capsule Take 1 Cap (15 mg) by mouth nightly as ne eded for Insomnia. 30 Cap 1 isosorbide mononitrate (IMDUR) 60 mg Extended Release 24 hour tablet TAKE ON E TABLET BY MOUTH 2 TIMES A DAY 60 Tab 11 No current facility-administered medications for this visit. Objective: BP 138/70 | Temp(Src) 99 F (37.2 C) | Ht 5' 6" (1.676 m) | Wt 189 lb (85. 73 kg) | BMI 30.52 kg/m2 General appearance: alert, in no distress Abdomen: right inguinal area with edema and mild firmness. No erythema and no i nduration. Results for orders placed during the hospital encounter of 03/26/15 (from the [facility] 336 hour(s)) XR HAND 3+ VW RIGHT Collection Time 03/26/15 4:45 PM Narrative: EXAM: 3 views of the right hand INDICATIONS: Hand pain. FINDINGS: Comparison is with prior study from 03/05/2015. There is a nondisplaced acute fracture along the base of the fifth metacarpal. N o definite intra-articular extension is identified. There are chronic fractures involving t he fourth and fifth metacarpal necks. There is foreshortening of both the fourth and fifth metacarpa l. Impression: IMPRESSION: Acute nondisplaced fracture involving the proximal aspect of the fifth metacarpa l. Intra-articular extension is not visualized, but cannot be excluded based on the location of the fracture. Electronically Signed By: Taras Coombs MD, Signed On: 03/26/2015 4:55 PM BASIC FRACTURE AND FRACTURE DISLOCATION TREATMENT Collection Time 03/26/15 5:04 PM Narrative: Kaye Fernandez MD 03/26/2015 5:04 PM HISTORY [...] called EMS who came to the house, states vitals were stable and by that [...] Negative for tremors, syncope, facial asymmetry, speech difficulty, weakness and light-headedness. Psychiatric/Behavioral: Positive for agitation. PAST MEDICAL HISTORY REVIEWED MEDICAL: Patient has a past medical history of Wrist sprain (08/10); Contusion, back (08/16/03); Cataract; Unspecified disease of respiratory system; Glaucoma; Asthma; Diabetes; Seizure disorder; Unspecified disorder of lipoid metabolism; Coronary artery disease; Chronic ischemic heart disease, unspecified; Unspecified essential hypertension; COPD (chronic obstructive pulmonary disease); and Anxiety. He also has no past medical history of Post-operative nausea and vomiting, Unspecified adverse effect of anesthesia, Latex sensitivity, or Obstructive sleep apnea (adult) (pediatric). SURGICAL: Patient has past surgical history that includes surgical other (05/2001); cataract removal (2000); surgical other (2001); surgical other (1999); surgical other (11/2001); turp (08/2003); surgical other (04/12); surgical other (09/12); surgical other (08/14); psa (09/13); surgical other (07/11); colonoscopy flx dx w/collj spec when pfrmd (02/01/2009); hernia repair (1988); lap cholecystectomy (05/17/07); coronary artery bypass graft; heart catheterization (04/10); lap,appendectomy (05/28/2012); repair umbilical colleen,5+y/o,reduc (05/28/2012); colonoscopy flx dx w/collj spec when pfrmd (12/28/2013); and hernia inguinal repair (Right, 03/08/2015). FAMILY: Patient's family history includes Asthma in his mother and sister; Diabetes in his mother and sister; Healthy in his daughter, daughter, daughter, son, son, son, and son; Heart Disease in his sister and son; Lung Cancer in his brother; Other in his father, mother, and sister; Respiratory Disease in his mother and sister; Seizures in his brother. SOCIAL: reports that he has been smoking Cigarettes. He has a 40 pack-year smoking history. He has never used smokeless tobacco. He reports that he currently engages in sexual activity and has had female partners. He reports that he does not drink alcohol or use illicit drugs. No history on file. Social History Other Topics Concern Not on file PROBLEM LIST: Patient has Renal stone; Unspecified essential hypertension; BPH w/o Urinary Obs/LUTS; Neurogenic bladder, NOS; Unspecified Glaucoma; Bipolar Disorder, Unspecified; Hyperlipidemia; Tubular Adenoma; MRSA (methicillin resistant staph aureus) culture positive; Status post laparoscopic appendectomy; Umbilical hernia without mention of obstruction or gangrene; Bradycardia; Back pain; LFT elevation; Osteoarthritis of right knee; Carpal tunnel syndrome; Diabetes mellitus; CAD (coronary artery disease); COPD (chronic obstructive pulmonary disease); Seizure disorder; Depression; Suicidal behavior; Status post colonoscopy; Right inguinal hernia; and Status post right inguinal hernia repair on his problem list. ALLERGIES Codeine; Doxycycline; Penicillins; Phenobarbital; Piperacillin-tazobactam; Terazosin; and Valium HOME MEDICATIONS Patient's [...] EXAM INITIAL VS BP: 114/70 mmHg (03/26/15 163), Heart Rate (Monitored): 85 bpm (03/26/151637), Resp: 18 (03/26/151637), Temp: 96.4 F (35.8 C) (03/26/15 163), Temp src: Tympanic (03/26/151637), SpO2: 96 % (03/26/158), Height: 5' 6" (167.6 cm) (03/26/15 1638), Weight: 83.915 kg (03/26/15 1638), BMI (Calculated): 29.92 (03/26/151637) No LMP for male patient. Physical Exam [...] 85 bpm (03/26/15 1638), Resp: 18 (03/26/15 1638), Temp: 96.4 F (35.8 C) (03/26/15 1638), Temp src: Tympanic (03/26/15 1638), SpO2: 96 % (03/26/15 1638) CLINICAL IMPRESSION Final diagnoses: [815.09] Closed fracture of 5th metacarpal, initial encounter (Primary) CODING Coding DISPOSITION, EDUCATION AND MEDICATION RECONCILIATION Medications reconciled. See after visit summary for patient education on discharged patients. Splint, cold, analgesia, follow up with PCP re further disposition after swelling diminished, elevation, rest *Note: Due to a large number of results for the requested time period, some res ults have not been displayed. A complete set of results can be found in Results Review. Assessment: Status post right inguinal hernia repair with mesh, small seroma not infected. There is edema with dependency, no recurrence. Plan: Keep lower extremity elevated when supine. Recommend wearing support underwear when being more active. Follow up as needed. documented in this encounter Plan of Treatment Not on filedocumented as of this encounter Visit Diagnoses Diagnosis Status post right inguinal hernia repai r - Primary Other postprocedural status documented in this encounter
--- OUTSIDE RECORDS SUMMARY | 2020-03-24 14:12 | XMS REPORT | Encounter Summary ---
Author Author [facility] Organization [facility] Address Unknown Phone Unavailable Care Team Providers Care Cabinetmaker Apprentice Name Role Phone Shahram Mccallum MD PCP Unavailable Encounter Details Care Team Description Date Type Department Mary Zhou MD NO ADDRESS ON FILE 03/08/2015 [facility] F ort Encounter [facility] Pre Post Op [address] [place] [address] Social History Date Tobacco Use [...] through Care Everywhere.* HERNIA REPAIR : PRE-OP (KYRGYZ) * SEDATION (KYRGYZ) documented in this encounter Medications at Time [...] 50 Administer 2 16 Gram 5 mcg/spray Ruston, Sprays in Suspension each nostril daily. 11/14/2013 [...] Anesthesia Note Patient: Oliverio Dalton Medical record: [id number] Post: HERNIA INGUINAL REPAIR Anesthesia Problems: No anesthesia problems/complications 03/08/2015, 9:44 AM Candace Salcedo CRNA * Zohra-OP - Leila Coffman RN - 03/08/2015 8:53 AM CDT Sensorcaine 0.5% 50 ml 2nd bottle placed on sterile field. * Zohra-OP - Leila Coffman RN - 03/08/2015 8:43 AM CDT Sensorcaine 0.5% 50 ml placed on sterile field. * OR Anesthesia - Candace Slacedo CRNA - 03/08/2015 8:41 AM CDT Subjective: 03/08/2015 , the patient was interviewed in the Pre-Op. Patient is a 64 y.o. Cauca vinnie male scheduled for Procedure(s): HERNIA INGUINAL REPAIR. Medical record [id number]. Patient Active Problem List Diagnosis Date Noted [...] 02/01/2009 COLONOSCOPY performed by MARY ZHOU at [facility] OR Hx hernia repair 1988 And age 4 Hx lap cholecystectomy 05/17/07 Hx coronary artery bypass graft Hx heart catheterization 04/10 With angioplasty, 2 stents Pr lap,appendectomy 05/28/2012 APPENDECTOMY LAPAROSCOPIC performed by Mary Zhou MD at [facility] OR Pr repair umbilical colleen,5+y/o,reduc 05/28/2012 HERNIA UMBILICAL REPAIR performed by Mary Zhou MD at [facility] OR Pr colonoscopy flx dx w/collj spec when pfrmd 12/28/2013 COLONOSCOPY performed by Mary Zhou MD at [facility] OR History Social History Marital Status: Spouse [...] 60 Tab 11 fluticasone (FLONASE) 50 mcg/spray Ruston, Suspension Administer 2 Sprays in each nostril [...] facility-administered medications:lactated ringers solution, , IV, Cj nuousAbelardo Wan-Lin, MD, Last Rate: 100 mL/hr at [...] AM CDT) CASE REPORT Surgical Pathology Report [facility] Case: [id number] [facility] Authorizing Provider: Mary Zhou MD Collected: 03/08/2015 09:09 AM Ordering Location: [facility] Received: 03/08/2015 03:26 PM Operating Room Pathologist: David Ferrer MD Specimen: Right inguinal hernia sac. FINAL DIAGNOSIS Right inguinal hernia sac: [place] E lectronically Hernia sac tissues. PATHOLOGY signed by Joana, CPT Code: 39474 CONSULTANTROLAND Tracey MD on ICD9 Code: 550.90 03/11/2015 at 11:47 AM Micro exam performed at [facility], [address] [place] [address]. [address] OPERATIVE Inguinal hernia repair. [facility] CONSULTANTROLAND Tracey GROSS The specimen is labeled right [facility] DES[facility] inguinal hernia sac. Received PATHOLO GY in formalin are two specimens. CONSULTANTROLAND Tracey The first is a piece of brown to yellow-red fatty tissue measuring 14.2x2.7x0.7 cm in greatest dimension. The second specimen is a pouch of membranous wrinkled parsons-pink to brown tissue measuring 5.9x4.5x1 cm. Membranous tissue varies in thickness. A workforce services representative cross section of both specimens submitted in one cassette. Gross exam performed at [facility], [address] [place] [address]. [address] MICROSCOPIC Sections reveal membranous [facility] DES[facility] fibrovascular connective PATHOLOGY tissue with lobulated fatty CONSULTANTROLAND Tracey tissue and additional sections of fat. Hemorrhage is focally seen in the fatty tissue. Surfaces of the membranous tissue are lined by a single flat layer of mesothelial cells. EMBEDDED IMAGE [facility] ROLAND WELCH Specimen Tissue Performing Organization Address City/[facility] Ph one Number [facility] CLIA# [id number] [place] [address] CONSULTANTROLAND Tracey [address] [place] [address] PATHOLOGY CLIA# [id number] [place] [phone] ROLAND WELCH [address] [place] [address] * POC GLUCOSE (03/08/2015 7:28 AM CDT) POC GLUCOSE 163 (H) 70 - 100 mg/dL [facility] Specimen Blood, capillary Performing Organization Address [facility] Ph one Number [facility] CLIA# [id number] [place] [id number] [address] - [address] * MRSA PCR RAPID SCREEN (03/08/2015 6:55 AM CDT) MRSA PCR RESULT MRSA not detected MRSA not detected [facility] Specimen Other, specify - Nares Narrative Performed At PLEASE NOTE: This test has not been a pproved to monitor effectiveness of MRSA [facility] decolonization. Residual DNA may temporarily be pre sent after successful [facility] decolonization. This test was performed using an FDA approved [facility] methodology. A POSITIVE result indicates the presenc e of MRSA target DNA. A NEGATIVE result indicates the absence of MRSA target DNA. An INVALID result indicates the presenc e or absence of MRSA target DNA could not be determined. Performing Organization Address City/State[facility] Ph one Number [facility] CLIA# [id number] [place], [place] [address] - [address] documented in this encounter Visit Diagnoses Diagnosis Back pain - Primary Backache, unspecified Status post right inguinal hernia repai r Other postprocedural status documented in this encounter Administered Medications Action [...] Inhalation, ONE TIME ONLY RESPIRATORY, 1 dose, Wed03/08/15 at 0745 , Stat 03/08/2015 7:16 AM [...]
--- OUTSIDE RECORDS SUMMARY | 2020-03-24 14:13 | XMS REPORT | Encounter Summary ---
Author Author [facility] Organization [facility] Address Unknown Phone Unavailable Care Team Providers Care Middle [employer] Baseball Coach Name Role Phone Shahram Mccallum MD PCP Unavailable Reason for Visit * Reason Comments Fall fell and hurt back, happene d about a week or two ago, Encounter Details Care Team Description Date Type Department Claus Couch MD [address] [place] [address] Back pain (Primary Dx) 01/03/2015 Office Visit [facility] [place] [address] [place] [address] Social History Date Tobacco Use [...] Signs Reading Time Taken Comments Vital Sign 110/58 01/03/2015 10:31 AM ETIOLOGY TEACHER Blood Pressure - - Pulse 36.3 C (97.4 F) 01/03/2015 10:31 AM ETIOLOGY TEACHER Temperature - - Respiratory Rate - - Oxygen Saturation - - Inhaled Oxygen Concentration 83.9 kg (185 lb) 01/03/2015 10:31 AM ETIOLOGY TEACHER Weight 167.6 cm (5' 6") 01/03/2015 10:31 AM ETIOLOGY TEACHER Height 29.86 01/03/2015 10:31 AM ETIOLOGY TEACHER Body Mass Index documented in this encounter Progress Notes * Claus Couch MD - 01/03/2015 10:33 AM ETIOLOGY TEACHER HISTORY OF PRESENT ILLNESS Oliverio Dalton, a 64 y.o. male. Subjective The history is provided by the patient. The medical record reflects the History of Present Illness as obtained by myself in discussion with the patient. Fall The accident occurred more than 1 week ago. The fall occurred while walking. He fell from a height of 3 to 5 ft. He landed on grass. There was no blood loss. Th e point of impact was the left shoulder. The pain is present in the neck (back). The pain is at a severity of 10/10. The pain is severe. There was drug use invo lved in the accident. Pertinent negatives include no fever, no numbness, no abdo mary pain, no vomiting, no hematuria, no hearing loss, no loss of consciousness and no tingling. The symptoms are aggravated by ambulation, flexion, extension and heat. He has tried NSAIDs for the symptoms. The treatment provided mild reli ef. REVIEW OF SYSTEMS Review of Systems Constitutional: [...] for color change. Neurological: Negative for dizziness, tingling, loss of consciousness, syncope, facial asymmetry and numbness. Psychiatric/Behavioral: Negative for behavioral problems and agitation. Objective PHYSICAL EXAM BP 110/58 | Temp(Src) 97.4 F (36.3 C) (Tympanic) | Ht 5' 6" (1.676 m) | W t 185 lb (83.915 kg) | BMI 29.87 kg/m2 Physical Exam Constitutional: He appears well-developed and well-nourished. HENT: Head: Normocephalic and atraumatic. Cardiovascular: Normal rate, regular rhythm, normal heart sounds and intact dist al pulses. Pulmonary/Chest: Effort normal and breath sounds normal. Abdominal: Soft. Bowel sounds are normal. Assessment ASSESSMENT and PLAN: ICD-9-CM ICD-10-CM 1. Back pain 724.5 M54.9 XR THORACIC SPINE 3 VW XR LUMBAR SPINE 2 OR 3 VW Will get xray today Orders Placed This Encounter XR THORACIC SPINE 3 VW XR LUMBAR SPINE 2 OR 3 VW ibuprofen (MOTRIN) 800 mg tablet DISCONTD: cyclobenzaprine (FLEXERIL) 10 mg tablet Start on the above follow up if no improvement LOGY TEACHER documented in this encounter Plan of Treatment Not on filedocumented as of this encounter Results * XR LUMBAR SPINE 2 OR 3 VW (01/03/2015 11:14 AM ETIOLOGY TEACHER) Specimen Impressions Performed At IMPRESSION: Very slight anterior wedging of L1, chron icity or acuity INTERFACE SYSTEM indeterminate. If indicated, consider further evaluation with MRI. N o other lumbar vertebral compression deformities identified. Electronically Signed By: Cooper freed MD, Signed On: 01/03/2015 1:49 PM Narrative Performed At RADIOLOGIC EXAM: Lumbar spine AP and lateral, 3 views INTERFACE SYSTEM INDICATION: Low back pain FINDINGS: There is very slight anterior wedging of L1, which may be developmental. However, the possibility of a more recent L1 marcos moira fracture cannot be excluded entirely. There are no other lumbar vertebral compression deformitie s identified. Alignment throughout the lumbar spine is anatomic. Minor degenerative changes noted. Procedure Note Interface, [facility] Incoming Radiology Results - 01/03/2015 1:53 PM ETIOLOGY TEACHER RADIOLOGIC EXAM: Lumbar spine AP and lateral, 3 views INDICATION: Low back pain FINDINGS: There is very slight anterior wedging of L1, which may be developmental. However, the possibility of a more recent L1 compression fracture cannot be excluded entirely. There are no other lumbar vertebral compression deformities identified. Alignment throughout the lumbar spine is anatomic. Minor degenerative changes noted. IMPRESSION IMPRESSION: Very slight anterior wedging of L1, chronicity or acuity indeterminate. If indicated, consider further evaluation with MRI. No other lumbar vertebral compression deformities identified. Electronically Signed By: Cooper Keller MD, Signed On: 01/03/2015 1:49 PM Performing Organization Address City/State/Zipcode Ph one Number INTERFACE SYSTEM INTERFACE SYSTEM Refer to clinic/hospital department * XR THORACIC SPINE 3 VW (01/03/2015 11:14 AM ETIOLOGY TEACHER) Specimen Impressions Performed At IMPRESSION: INTERFACE SYSTEM No acute appearing osseous abnormalitie s identified. No significant change compared to previous. Electronically Signed By: Cooper freed MD, Signed On: 01/03/2015 1:44 PM Narrative Performed At RADIOLOGIC EXAM: Thoracic spine 3 views INTERFACE SY STEM INDICATION: Back pain COMPARISON: Thoracic spine exam from FINDINGS: Alignment is normal. No verte bral compression deformities or other acute osseous abnormalities identified. Mild degenerative changes n oted in the thoracic spine. Procedure Note Interface, [facility] Incoming Radiology Results - 01/03/2015 1:48 PM ETIOLOGY TEACHER RADIOLOGIC EXAM: Thoracic spine 3 views INDICATION: Back pain COMPARISON: Thoracic spine exam from 10/18/2009 FINDINGS: Alignment is normal. No vertebral compression deformities or other acute osseous abnormalities identified. Mild degenerative changes noted in the thoracic spine. IMPRESSION IMPRESSION: No acute appearing osseous abnormalities identified. No significant change compared to previous. Electronically Signed By: Cooper Keller MD, Signed On: 01/03/2015 1:44 PM Performing Organization Address City/State/Zipcode Ph one Number INTERFACE SYSTEM INTERFACE SYSTEM Refer to clinic/hospital department documented in this encounter Visit Diagnoses Diagnosis Back pain - Primary Backache, unspecified documented in this encounter
--- OUTSIDE RECORDS SUMMARY | 2020-03-24 14:13 | XMS REPORT | Encounter Summary ---
Author Author [facility] Organization [facility] Address Unknown Phone Unavailable Care Team Providers Care Second Steward Name Role Phone Shahram Mccallum MD PCP Unavailable Encounter Details Care Team Description Date Type Department Shahram Mccallum MD NO ADDRESS ON FILE 01/04/2015 Orders Only [facility] Primar y Care [place] [address] [place] [id number] Social History Date Tobacco Use Types Packs/Day [...]
--- OUTSIDE RECORDS SUMMARY | 2020-03-24 14:13 | XMS REPORT | Encounter Summary ---
Author Author [facility] Organization [facility] Address Unknown Phone Unavailable Care Team Providers Care Stamp Classifier Name Role Phone Shahram Mccallum MD PCP Unavailable Reason for Referral * Eval and Treat (Routine) Referred By Contact Referred To Contact Status Reason Specialty Diagnoses / Procedures Shahram Mccallum MD NO ADDRESS ON FILE Mary Zhou MD NO ADDRESS ON FILE Closed Surgery / Diagnoses General Surgery Right inguinal hernia Reason for Visit * Reason Comments COPD Groin Pain right Encounter Details Care Team Description Date Type Department Shahram Mccallum MD NO ADDRESS ON FILE Diabetes mellitus (Primary Dx); COPD (chronic obstructive pulmonary disease); Back pain; Unspecified essential hypertension; Hyperlipidemia; CAD (coronary artery disease); Right inguinal hernia 02/25/2015 Office Visit [address] [phone] Social History Date Tobacco Use Types Packs/Day [...] Signs Reading Time Taken Comments Vital Sign 124/80 02/25/2015 10:09 AM CDT Blood Pressure - - Pulse - - Temperature - - Respiratory Rate - - Oxygen Saturation - - Inhaled Oxygen Concentration 85.7 kg (189 lb) 02/25/2015 10:09 AM CDT Weight 167.6 cm (5' 6") 02/25/2015 10:09 AM CDT Height 30.51 02/25/2015 10:09 AM CDT Body Mass Index documented in this encounter Progress Notes * Shahram Mccallum MD - 02/25/2015 8:11 PM CDT Subjective: Oliverio Dalton is a 64 y.o. male. Patient Active Problem List Diagnosis Code Renal [...] Suicidal behavior 300.9 Status post colonoscopy V45.89 Current Outpatient Prescriptions on File Prior to Visit Medication Sig Dispense Refill NEXIUM 40 mg [...] Tab by mouth daily. 90 Tab 3 fenofibrate nanocrystallized (TRICOR) 145 mg tablet Take [...] 60 Tab 11 fluticasone (FLONASE) 50 mcg/spray [place], Suspension Administer 2 Sprays in each nostril [...] Take by mouth daily. 2 tablets daily magnesium oxide 250 mg Oral Tab Take 1 Tab by mouth 3 times daily. ASPIRIN EC 81 mg Oral TbEC Take 81 mg by mouth daily. MULTIVITAMIN PO Take 1 Tab by mouth daily with lunch. ALBUTEROL IN Take 2 Puffs by inhalation every 6 hours as needed BETIMOL 0.5 % OP Drop Administer 1 Drop in both eyes 2 times daily. [DISCONTINUED] oxyCODONE-acetaminophen (PERCOCET) 5-325 mg tablet Take 1 Tab by mouth every 6 hours as needed for Pain, Moderate. Max Daily Amount: 4 Tabs 30 Tab 0 HYDROcodone-acetaminophen (NORCO) 5-325 mg tablet Take 1 Tab by mouth every 4 hours as needed for Pain may take one or two tabs every 4 hours as needed for pain.. Max Daily Amount: 6 Tabs 50 Tab 0 prochlorperazine maleate (COMPAZINE) 10 mg tablet Take 10 mg by mouth every 6 hours as needed. FLUoxetine (PROZAC) 20 mg capsule Take 2 Caps by mouth daily. 60 Cap 5 blood sugar diagnostic (ACCU-CHEK ACTIVE TEST) Misc Strp In the am & pm prn 1 Package 0 No current facility-administered medications on file prior to visit. Lab Results Component Value Date/Time HGBA1C 6.4* 02/25/2015 8:38 AM HGBA1C 6.6* 10/11/2014 8:53 AM HGBA1C 6.6* 07/12/2014 11:43 AM MALBUR 32.2 08/15/2012 8:43 AM LDLCALC 58 02/25/2015 8:38 AM LDLDIRECT 125 12/10/2011 9:05 AM CREAT 0.78 02/25/2015 8:38 AM Lab Results Component Value Date/Time CHOLTOT 148 02/25/2015 8:38 AM CHOLTOT 125 10/11/2014 8:53 AM CHOLTOT 176 02/12/2014 8:27 AM HDL 67 02/25/2015 8:38 AM HDL 59 10/11/2014 8:53 AM HDL 49 02/12/2014 8:27 AM LDLCALC 58 02/25/2015 8:38 AM LDLCALC 43 10/11/2014 8:53 AM LDLCALC 85 02/12/2014 8:27 AM LDLDIRECT 125 12/10/2011 9:05 AM LDLDIRECT 123 08/04/2011 9:05 AM LDLDIRECT 125 04/02/2011 8:46 AM TRIGLYCERIDE 117 02/25/2015 8:38 AM TRIGLYCERIDE 114 10/11/2014 8:53 AM TRIGLYCERIDE 212 02/12/2014 8:27 AM ALT 17 02/25/2015 8:38 AM AST 14 02/25/2015 8:38 AM Lab Results Component Value Date/Time CREAT 0.78 02/25/2015 8:38 AM BUN 14 02/25/2015 8:38 AM NA 137 02/25/2015 8:38 AM K 4.3 02/25/2015 8:38 AM CL 102 02/25/2015 8:38 AM CO2 28 02/25/2015 8:38 AM GFR >60 02/25/2015 8:38 AM Lab Results Component Value Date/Time ALT 17 02/25/2015 8:38 AM AST 14 02/25/2015 8:38 AM ALKPHOS 77 02/25/2015 8:38 AM BILIDIRECT 0.1 12/13/2014 11:28 AM BILITOTAL 0.2 02/25/2015 8:38 AM Lab Results Component Value Date/Time INR 1.19* 02/06/2013 7:26 PM INR 1.12* 08/30/2012 1:20 PM INR 1.12* 08/09/2012 3:30 PM PT 12.6* 02/06/2013 7:26 PM PT 12.1* 08/30/2012 1:20 PM PT 12.1* 08/09/2012 3:30 PM HPI: Mr. Dalton complains of the following (by systems): Arthritis symptoms: diffuse arthralgias and barbara low back Chest Pain symptoms: none and shortness of breath COPD related symtoms: dyspnea, cough, wheezing and stable Depression like symptoms: depressed mood, difficulty concentrating, fatigue and much better/ stable. no suicide thoughts/ plans. Diabetes Type II complaints: medication compliance: compliant most of the time , diabetic diet compliance: noncompliant some of the time, home glucose monitori ng: is performed sporadically Hypertension related symtoms/issues: taking medications as instructed, no side effects of medications, no chest pain on exertion, no dyspnea on exertion, no ed lian No complications related to lipids or lipid therapy. Review of Systems: ROS Denies all of the following acutely changed: Headache Dizziness Chest pain Shortness of breath Bowel changes: he does c/o R inguinal fullness/ bulge that is at time painful. Bladder changes Pain in muscle or joints Exam/Objective: Normal Exam for Routine Visits: \\Blood pressure 124/80, height 5' 6" (1.676 m), weight 189 lb (85.73 kg). General appearance:chronic problems but clean bathed and more healthy appearing, active, alert, cooperative, social, normally nourished, and in no acute distres s Lungs: breath sounds equal, clear to auscultation bilaterally, no retractions, n o stridor, normal respiratory effort Heart: regular rate and rhythm, S1, S2 normal, no murmur, click, rub, gallop, or abnormal sounds. Abdomen: soft, non-tender. Bowel sounds normal. No masses, no organomegaly. Ac tive bowel sounds. Probable R ing hernia. Extremities: symmetrical non edematous. Assessment and Plan: ASSESSMENT: Encounter Diagnoses Name Primary? Diabetes mellitus Yes COPD (chronic obstructive pulmonary disease) Back pain Unspecified essential hypertension Hyperlipidemia CAD (coronary artery disease) Right inguinal hernia PLAN: Orders Placed This Encounter CMP (6 MONTHS X 1) LIPID PANEL (6 MONTHS X 1) HEMOGLOBIN A1C (6 MONTHS X 1) * Artur Zhou-Jaycee oxyCODONE-acetaminophen (PERCOCET) 5-325 mg tablet Appropriate medications prescribed (see detailed AVS). Appropriate patient instructions provided (see detailed AVS). Follow-up as I have indicated. Medications and options explained to include common side effects. Understanding of medications, course, diagnosis, and expectations were expressed by patient/g uardian. documented in this encounter Plan of Treatment Order Schedule Name Type Priority Associated Diag noses Ordered: 02/25/2015 AMB REFERRAL TO GENERAL Outpatient Routine Right inguinal hernia SURGERY Referral documented as of this encounter Results * HEMOGLOBIN A1C (08/26/2015 8:48 AM CDT) HEMOGLOBIN A1C 6.2 (H) 0.0 - 6.0 % [facility] LABORATORY [facility] [place] EST. AVG 131 mg/dL [facility] GLUCOSE, A1C [facility]ATORY [facility] [place] Specimen Blood Performing Organization Address City/State/[facility] Cent[facility] Ph one Number [facility] LABORATORY SERVICES CLIA# [id number] [place] [address] - [place] [address] [facility] * LIPID PANEL (08/26/2015 8:48 AM CDT) CHOLESTEROL 148 <200 mg/dL [facility]ATORY [facility] [place] TRIGLYCERIDE 254 (H) <150 mg/dL [facility] HDL 45 40 - 59 mg/dL [facility] [place] LDL CALCULATED 52 <100 mg/dL [facility] LABORATORY [facility] NON-HDL 103 <130 mg/dL [facility] CHOLESTEROL [facility] [place] Specimen Blood Narrative Performed At TOTAL CHOLESTEROL mg/dL [facility] Desirable <200 [facility] - [facility] Borderline high 200-239 FAYE High [...] Based on AHA/NCEP Guidelines Performing Organization Address City/State/Zipcode Ph one Number [facility] LABORATORY SERVICES CLIA# [id number] [place] [address] [place] [address] * COMPREHENSIVE METABOLIC PANEL (08/26/2015 8:48 AM CDT) SODIUM 133 (L) 134 - 145 mmol/L [facility] [place] POTASSIUM 4.0 3.5 - 5.1 mmol/L [facility] [place] CHLORIDE 98 98 - 107 mmol/L [facility] [place] CO2 27 22 - 31 mmol/L [facility] [place] CALCIUM 9.3 8.5 - 10.1 mg/dL [facility] [place] BUN 19 7 - 20 mg/dL [facility] [place] CREATININE 0.88 0.67 - 1.17 mg/dL [facility] [place] GLUCOSE 163 (H) 70 - 100 mg/dL [facility] [place] TOTAL PROTEIN 7.5 6.4 - 8.2 g/dL [facility] [place] ALBUMIN 4.0 3.4 - 5.0 g/dL [facility] [place] BILIRUBIN TOTAL 0.3 <=1.1 mg/dL [facility] [place] ALKALINE 80 46 - 116 U/L [facility] PHOSPHATASE [facility] [place] AST 17 10 - 40 U/L [facility] [place] ALT 27 14 - 63 U/L [facility] [place] GFR >60 >=60 mL/min/1.73 sq [facility] Comment: meter LABORATORY eGFR has not been validated SERVICES - [facility] for use in the elderly [...] GFR result. GFR, >60 >=60 mL/min/1.73 sq [facility] MOLDOVAN meter LAB[facility] [place] ANION GAP 8 4 - 20 mmol/L [facility] [place] Specimen Blood Performing Organization Address City/State/Zipcode Ph one Number [facility] LAB[facility]ATORY SERVICES CLIA# [id number] [place] [address] [place] [address] documented in this encounter Visit Diagnoses Diagnosis Diabetes mellitus - Primary Type II or unspecified type diabetes me llitus without mention of complication, not stated as uncontrolled COPD (chronic obstructive pulmonary dis ease) Chronic airway obstruction, not elsewhe re classified Back pain Backache, unspecified Unspecified essential hypertension Hyperlipidemia Other and unspecified hyperlipidemia CAD (coronary artery disease) Coronary atherosclerosis of unspecified type of vessel, [place] or graft Right inguinal hernia Inguinal hernia without mention of obst ruction or gangrene, unilateral or unspecified, (not specified as recurrent) documented in this encounter
--- OUTSIDE RECORDS SUMMARY | 2020-03-24 14:13 | XMS REPORT | Encounter Summary ---
Author Author [facility] Organization [facility] Address Unknown Phone Unavailable Care Team Providers Care Community Marketing Coordinator Name Role Phone Shahram Mccallum MD PCP Unavailable Reason for Visit * Reason Comments Surgical Consult inguinal hernia, referred yemi Mccallum * Eval and Treat (Routine) Referred By Contact Referred To Contact Status Reason Specialty Diagnoses / Procedures Shahram Mccallum MD NO ADDRESS ON FILE Beulah Zhou MD NO ADDRESS ON FILE Closed Surgery / Diagnoses General Surgery Right inguinal hernia Encounter Details Care Team Description Date Type Department Beulah Zhou MD NO ADDRESS ON FILE Right inguinal hernia (Primary Dx) 03/04/2015 History & [facility] Physical Surgery [address] [phone] Social History Date Tobacco [...] Reading Time Taken Comments Vital Sign 108/60 03/04/2015 1:12 PM CDT Blood Pressure - - Pulse - - Temperature - - Respiratory Rate - - Oxygen Saturation - - Inhaled Oxygen Concentration 85.7 kg (189 lb) 03/04/2015 1:12 PM CDT Weight 165.1 cm (5' 5") 03/04/2015 1:12 PM CDT Height 31.45 03/04/2015 1:12 PM CDT Body Mass Index documented in this encounter Progress Notes * Beulah Zhou MD - 03/06/2015 5:33 PM CDT Subjective: Oliverio Dalton is an 64 y.o. male who presents for evaluation of right inguina l hernia. Patient complaining of right inguinal bulge and pain. Denies consti pation. Denies difficulty with urination. Patient noticed pain worsening. Past Medical History Diagnosis Date Wrist sprain 08/10 Rt. Contusion, back 08/16/03 Fall Cataract Unspecified disease of respiratory system Glaucoma Asthma Diabetes Seizure disorder Unspecified disorder of lipoid metabolism Coronary artery [...] 02/01/2009 COLONOSCOPY performed by BEULAH ZHOU at [facility] OR Hx hernia repair 1988 And age 4 Hx lap cholecystectomy 05/17/07 Hx coronary artery bypass graft Hx heart catheterization 04/10 With angioplasty, 2 stents Pr lap,appendectomy 05/28/2012 APPENDECTOMY LAPAROSCOPIC performed by Beulah Zhou MD at [facility] OR Pr repair umbilical colleen,4+y/o,reduc 05/28/2012 HERNIA UMBILICAL REPAIR performed by Beulah Zhou MD at [facility] OR Pr colonoscopy flx dx w/collj spec when pfrmd 12/28/2013 COLONOSCOPY performed by Beulah Zhou MD at [facility] OR Family History Problem Relation Age of [...] Current Outpatient Prescriptions Medication Sig Dispense Refill oxyCODONE-acetaminophen (PERCOCET) 5-325 mg tablet Take 1 Tab by mouth every 6 hours as needed for Pain, Moderate. Max Daily Amount: 4 Tabs 30 Tab 0 NEXIUM 40 mg Capsule, Delayed Release(E.C.) [...] 60 Tab 11 fluticasone (FLONASE) 50 mcg/spray [place], Suspension Administer 2 Sprays in each nostril [...] Pain, Moderate. Max Daily Amount: 6 Tabs 6 Tab 0 HYDROcodone-acetaminophen (NORCO) 5-325 mg tablet Take 1 Tab by mouth every 4 hours as needed for Pain, Moderate. Max Daily Amount: 6 Tabs 20 Tab 0 No current facility-administered medications for this visit. Allergies Allergen Reactions Codeine Unknown Doxycycline Rash Phenobarbital Weakness "relaxes me too much" Piperacillin-Tazobactam Hives and Rash Breaks out Terazosin Other (See Comments) Chest heaviness, chest pain Valium [Diazepam] Other (See Comments) "stops breathing, no pulse" Unresponsiveness "stops breathing, no pulse" History Social History Marital Status: Spouse Name: [...] Remaining ROS negative and noncontributory. Objective: BP 108/60 | Ht 5' 5" (1.651 m) | Wt 189 lb (85.73 kg) | BMI 31.45 kg/m2 General: alert, in no distress Skin: Normal. Eyes: negative Mouth: MMM no lesions Lymph Nodes: deferred Lungs: normal respiratory effort Heart: regular rate and rhythm Abdomen: Not distended, soft. Bowel tones present. Right inguinal bulge, not r educible. CVA: absent Genitourinary: defer exam Extremities: extremities normal, atraumatic, no cyanosis or edema, normal stren gth, normal tone Neurologic: negative Psychiatric: non focal Results for orders placed during the hospital encounter of 03/05/15 (from the [facility] 336 hour(s)) XR HAND 3+ VW [...] Kasper MD, Signed On: 03/06/2015 8:36 AM Results for orders placed during the hospital encounter of 02/25/15 (from the [facility] 336 hour(s)) COMPREHENSIVE METABOLIC PANEL Collection Time 02/25/15 8:38 AM Result Value Ref Range SODIUM 137 134-145 mmol/L POTASSIUM 4.3 3.5-5.1 mmol/L CHLORIDE 102 98-107 mmol/L CO2 28 22-31 mmol/L CALCIUM 8.6 8.5-10.1 mg/dL BUN 14 7-20 mg/dL CREATININE 0.78 0.67-1.17 mg/dL GLUCOSE 95 70-100 mg/dL TOTAL PROTEIN 7.1 6.4-8.2 g/dL ALBUMIN 3.7 3.4-5.0 g/dL BILIRUBIN TOTAL 0.2 <=1.1 mg/dL [place] PHOSPHATASE 77 40-136 U/L AST 14 10-40 U/L ALT 17 14-63 U/L GFR >60 >=60 mL/min/1.73 sq meter GFR, >60 >=60 mL/min/1.73 sq meter ANION GAP 7 4-20 mmol/L LIPID PANEL Collection Time 02/25/15 8:38 AM Result Value Ref Range CHOLESTEROL 148 TRIGLYCERIDE 117 HDL 67 LDL CALCULATED 58 <=130 mg/dL NON-HDL CHOLESTEROL 81 Narrative: TOTAL CHOLESTEROL mg/dL Desirable <200 Borderline high 200-239 High >=240 TRIGLYCERIDES mg/dL Normal <150 Borderline high 150-199 High 200-499 Very high >=500 HDL CHOLESTEROL mg/dL Low <40 Normal 40-60 Desirable >60 LDL CHOLESTEROL mg/dL Optimal <100 Low risk 100-129 Borderline high 130-159 High 160-189 Very high >=190 NON HDL CHOLESTEROL mg/dL Desirable <130 Borderline high 130-159 High 160-189 Very high >=190 Based on AHA/NCEP Guidelines HEMOGLOBIN A1C Collection Time 02/25/15 8:38 AM Result Value Ref Range HEMOGLOBIN A1C 6.4 (*) 0.0-6.0 % EST. AVG GLUCOSE, A1C 137 *Note: Due to a large number of results for the requested time period, some res ults have not been displayed. A complete set of results can be found in Results Review. Assessment: Right inguinal hernia, not reducible and without clinical history of bowel obstr uction. Due to progressive symptoms, will proceed with surgical repair. Plan: 1. Discussed the risk of surgery including bleeding, infection, recurrence, and additional surgeries, and the risks of general anesthetic including NM, CVA, valero dden or even reaction to anesthetic medications. The patient understands t he risks, any and all questions were answered to the patient's satisfaction. 2. Right inguinal hernia repair with mesh on 03/08/2015. 3. Hold Plavix and aspirin for 5 days. documented in this encounter Plan of Treatment Order Schedule Name Type Priority Associated Diag noses Ordered: 02/25/2015 AMB REFERRAL TO GENERAL Outpatient Routine Right inguinal hernia SURGERY Referral documented as of this encounter Visit Diagnoses Diagnosis Right inguinal hernia - Primary Inguinal hernia without mention of obst ruction or gangrene, unilateral or unspecified, (not specified as recurrent) documented in this encounter
--- OUTSIDE RECORDS SUMMARY | 2020-03-24 14:13 | XMS REPORT | Encounter Summary ---
Author Author [facility] Organization [facility] Address Unknown Phone Unavailable Care Team Providers Care Drug And Alcohol Counsellor Name Role Phone Shahram Mccallum MD PCP Unavailable Reason for Visit * Reason Comments Medication Refill Encounter Details Care Team Description Date Type Department Shahram Mccallum MD NO ADDRESS ON FILE 12/21/2014 Refill [facility] Primar y Care [address] [phone] Social History Date Tobacco Use Types Packs/Day [...]
--- OUTSIDE RECORDS SUMMARY | 2020-03-24 14:13 | XMS REPORT | Encounter Summary ---
Author Author [facility] Organization [facility] Address Unknown Phone Unavailable Care Team Providers Care Correctional Food Service Supervisor Name Role Phone Shahram Mccallum MD PCP Unavailable Reason for Visit * Reason Comments Medication Refill Encounter Details Care Team Description Date Type Department Shahram Mccallum MD NO ADDRESS ON FILE 12/13/2014 Refill [facility] Primar y Care [address] [phone] Social History Date Tobacco Use Types Packs/Day [...]
--- OUTSIDE RECORDS SUMMARY | 2020-03-24 14:13 | XMS REPORT | Encounter Summary ---
Author Author [facility] Organization [facility] Address Unknown Phone Unavailable Care Team Providers Care Longwall Foreman Name Role Phone Shahram Mccallum MD PCP Unavailable Encounter Details Care Team Description Date Type Department Claus Couch MD [address] [place] [address] 01/03/2015 Hospital [facility] rvices Encounter [place] [address] [place] [address] Social History Date Tobacco Use [...] Date End Date Medication Sig Dispensed Refills 08/30/2012 blood sugar diagnostic In the am & 1 Package 0 (ACCU-CHEK ACTIVE TEST) pm prn Misc Strp 12/29/2007 BETIMOL 0.5 % OP Drop Administer 1 0 Drop in both eyes 2 times daily. 01/03/2015 01/13/2015 ibuprofen (MOTRIN) 800 mg Take 1 Tab 30 Tab 0 tablet (800 mg) by mouth every 8 hours as needed for Pain, Moderate. 01/03/2015 04/23/2015 HYDROcodone-acetaminophen Take 1 Tab by [...] hour tablet MOUTH 2 TIMES A DAY 06/26/2014 01/23/2015 NEXIUM 40 mg Capsule, Take 1 Cap by 30 Cap 6 Delayed Release(E.C.) mouth daily before breakfast. 06/14/2014 10/07/2015 fluticasone (FLONASE) 50 Administer 2 16 Gram 5 mcg/spray [place], Sprays in Suspension each nostril daily. 11/14/2013 [...] LUMBAR SPINE 2 OR 3 VW Routine 01/03/2015 Back pain 11:14 AM BREAD WRAPPING MACHINE FEEDER documented in this encounter Results * XR LUMBAR SPINE 2 OR 3 VW (01/03/2015 11:14 AM BREAD WRAPPING MACHINE FEEDER) Specimen Impressions Performed At IMPRESSION: Very slight [...] Minor degenerative changes noted. Procedure Note Interface, [facility] Incoming Radiology Results - 01/03/2015 1:53 PM BREAD WRAPPING MACHINE FEEDER RADIOLOGIC EXAM: Lumbar spine AP and lateral, [...] this encounter Visit Diagnoses Diagnosis Back pain Backache, unspecified documented in this encounter
--- OUTSIDE RECORDS SUMMARY | 2020-03-24 14:13 | XMS REPORT | Encounter Summary ---
Author Author [facility] Organization [facility] Address Unknown Phone Unavailable Care Team Providers Care Cylindrical Mixer Name Role Phone Shahram Mccallum MD PCP Unavailable Reason for Visit * Reason Comments Medication Refill Encounter Details Care Team Description Date Type Department Shahram Mccallum MD NO ADDRESS ON FILE 01/23/2015 Refill [facility] Primar y Care [address] [phone] Social History Date Tobacco Use Types Packs/Day [...]
--- OUTSIDE RECORDS SUMMARY | 2020-03-24 14:13 | XMS REPORT | Encounter Summary ---
Author Author [facility] Organization [facility] Address Unknown Phone Unavailable Care Team Providers Care Surgical Scrub Tech Name Role Phone Shahram Mccallum MD PCP Unavailable Reason for Visit * Reason Comments Medication Refill Encounter Details Care Team Description Date Type Department Claus Couch MD [address] [place] [address] 01/30/2015 Refill [facility] Primar y Care [place] [address] [place] [phone] Social History Date Tobacco Use [...]
--- OUTSIDE RECORDS SUMMARY | 2020-03-24 14:13 | XMS REPORT | Encounter Summary ---
Author Author [facility] Organization [facility] Address Unknown Phone Unavailable Care Team Providers Care Cloak Room Attendant Name Role Phone Shahram Mccallum MD PCP Unavailable Encounter Details Care Team Description Date Type Department Claus Couch MD [address] [place] [address] 01/03/2015 Hospital [facility] rvices Encounter [place] [address] [place] [address] Social History Date Tobacco Use [...] 50 Administer 2 16 Gram 5 mcg/spray [place], Sprays in Suspension each nostril daily. 11/14/2013 [...] Name Priority Date/Time Associated Diag nosis XR THORACIC SPINE 3 VW Routine 01/03/2015 Back pa in 11:14 AM MANAGER INTERNSHIP documented in this encounter Results * XR THORACIC SPINE 3 VW (01/03/2015 11:14 AM MANAGER INTERNSHIP) Specimen Impressions Performed At IMPRESSION: INTERFACE SYSTEM [...] in the thoracic spine. Procedure Note Interface, [facility] Incoming Radiology Results - 01/03/2015 1:48 PM MANAGER INTERNSHIP RADIOLOGIC EXAM: Thoracic spine 3 views INDICATION: [...]
--- OUTSIDE RECORDS SUMMARY | 2020-03-24 14:13 | XMS REPORT | Encounter Summary ---
Author Author [facility] Organization [facility] Address Unknown Phone Unavailable Care Team Providers Care Range Aid Name Role Phone Shahram Mccallum MD PCP Unavailable Reason for Visit * Reason Comments Medication Refill Encounter Details Care Team Description Date Type Department Rosalinda Bal Medication Refill 01/03/2015 Telephone [facility] [address] [place] [address] Social History Date Tobacco Use [...] * Telephone Encounter - Rosalinda Bal - 01/03/2015 10:28 AM HOT WALKER Patient request refill of Hydrocodone 5/325. Per DR Mccallum may refill. Patijung t handed script. WALKER documented in this encounter Plan of Treatment Not on filedocumented as of this encounter Visit Diagnoses Not on filedocumented in this encounter
--- OUTSIDE RECORDS SUMMARY | 2020-03-24 14:13 | XMS REPORT | Encounter Summary ---
Author Author [facility] Organization [facility] Address Unknown Phone Unavailable Care Team Providers Care Collection Advisor Name Role Phone Shahram Mccallum MD PCP Unavailable Encounter Details Care Team Description Date Type Department Shahram Mccallum MD NO ADDRESS ON FILE Ftsc, Outpt Lab 02/25/2015 [facility] Outpatient Encounter Laboratory [address] [address] Social History Date Tobacco Use [...] Drop in both eyes 2 times daily. 02/25/2015 03/08/2015 oxyCODONE-acetaminophen Take 1 Tab by [...] 50 Administer 2 16 Gram 5 mcg/spray Mineral, Sprays in Suspension each nostril daily. 11/14/2013 [...] Date/Time Associated Diag nosis HEMOGLOBIN A1C Stat 02/25/2015 Diabetes mellit us 8:38 AM CDT LIPID PANEL Stat 02/25/2015 Hyperlipidemia 8:38 AM CDT COMPREHENSIVE METABOLIC Stat 02/25/2015 Hyperl ipidemia PANEL 8:38 AM CDT documented in this encounter Results * HEMOGLOBIN A1C (02/25/2015 8:38 AM CDT) HEMOGLOBIN A1C 6.4 (H) 0.0 - 6.0 % [facility] [place] EST. AVG 137 mg/dL [facility] [place] Specimen Blood Performing Organization Address [facility] one [facility] LABORATORY SERVICES CLIA# [id number] [place] [address] [address] * LIPID PANEL (02/25/2015 8:38 AM CDT) CHOLESTEROL 148 mg/dL [facility] [place] TRIGLYCERIDE 117 mg/dL [facility] [place] HDL 67 mg/dL [facility] [place] LDL CALCULATED 58 <=130 mg/dL [facility] [place] NON-HDL 81 mg/dL [facility] CHOLESTEROL [facility] [place] Specimen Blood Narrative Performed At TOTAL CHOLESTEROL mg/dL [facility] Desirable <200 SERVICES - [facility] Borderline high 200-239 [place] High >=240 TRIGLYCERIDES mg/dL Normal <150 Borderline high 150-199 High 200-499 Very high >=500 HDL CHOLESTEROL mg/dL Low <40 Normal 40-60 Desirable >60 LDL CHOLESTEROL mg/dL Optimal <100 Low risk 100-129 Borderline high 130-159 High 160-189 Very high >=190 NON HDL CHOLESTEROL mg/dL Desirable <130 Borderline high 130-159 High 160-189 Very high >=190 Based on AHA/NCEP Guidelines Performing Organization Address [facility] one [facility] LABORATORY [facility] CLIA# [id number] [place] [address] [address] * COMPREHENSIVE METABOLIC PANEL (02/25/2015 8:38 AM CDT) SODIUM 137 134 - 145 mmol/L [facility] [place] POTASSIUM 4.3 3.5 - 5.1 mmol/L [facility] [place] CHLORIDE 102 98 - 107 mmol/L [facility] [place] CO2 28 22 - 31 mmol/L [facility] - [facility] FAYE CALCIUM 8.6 8.5 - 10.1 mg/dL [facility] [place] BUN 14 7 - 20 mg/dL [facility] [place] CREATININE 0.78 0.67 - 1.17 mg/dL [facility] [place] GLUCOSE 95 70 - 100 mg/dL [facility] - [facility] [place] TOTAL PROTEIN 7.1 6.4 - 8.2 g/dL [facility] - [facility] [place]AY[place] ALBUMIN 3.7 3.4 - 5.0 g/dL [facility] [place] BILIRUBIN TOTAL 0.2 <=1.1 mg/dL [facility] [place] ALKALINE 77 40 - 136 U/L [facility] PHOSPHATASE [facility] [place] AST 14 10 - 40 U/L [facility] [place] ALT 17 14 - 63 U/L [facility] [place] GFR >60 >=60 mL/min/1.73 sq [facility] Comment: meter LABORATORY eGFR has not been validated [facility] for use in the elderly (> [...] result. GFR, >60 >=60 mL/min/1.73 sq [facility] meter [facility] [place] ANION GAP 7 4 - 20 mmol/L [facility] [place] Specimen Blood Performing Organization Address City/State/Zipcode Ph one Number [facility] CLIA# [id number] [place] [address] [place] [address] documented in this encounter Visit Diagnoses Diagnosis Hyperlipidemia Other and unspecified hyperlipidemia Diabetes mellitus Type II or unspecified type diabetes me llitus without mention of complication, not stated as uncontrolled documented in this encounter
--- OUTSIDE RECORDS SUMMARY | 2020-03-24 14:13 | XMS REPORT | Encounter Summary ---
Author Author [facility] Organization [facility] Address Unknown Phone Unavailable Care Team Providers Care Sales Representative Jewelry Name Role Phone Shahram Mccallum MD PCP Unavailable Reason for Visit * Reason Comments Results Encounter Details Care Team Description Date Type Department Shahram Mccallum MD NO ADDRESS ON FILE Results 12/14/2014 Telephone [facility] [address] [place] [address] Social History Date Tobacco Use [...] * Telephone Encounter - Nuris Miramontes - 12/14/2014 4:01 PM ARNP Hepatic function lab test reported to pt documented in this encounter Plan of Treatment Not on filedocumented as of this encounter Visit Diagnoses Not on filedocumented in this encounter
--- OUTSIDE RECORDS SUMMARY | 2020-03-24 14:13 | XMS REPORT | Encounter Summary ---
Author Author [facility] Organization [facility] Address Unknown Phone Unavailable Care Team Providers Care Ornament Stapler Name Role Phone Shahram Mccallum MD PCP Unavailable Encounter Details Care Team Description Date Type Department Shahram Mccallum MD NO ADDRESS ON FILE Ftsc, Outpt Lab 12/13/2014 [facility] Outpatient Encounter Laboratory [address] [address] Social History Date Tobacco Use [...] Drop in both eyes 2 times daily. 12/13/2014 03/15/2015 phenytoin sodium extended TAKE 2 [...] mouth daily 145 mg tablet with supper. 09/14/2014 01/03/2015 oxyCODONE-acetaminophen Take 1-2 Tabs 50 Tab 0 (PERCOCET) 5-325 mg by mouth tabletIndications: Back every 6 hours pain as needed for Pain, Moderate. 09/07/2014 03/25/2015 simvastatin (ZOCOR) 40 mg TAKE ONE 90 Tab 1 tablet TABLET (40MG) BY MOUTH EVERY DAY IN THE EVENING 08/24/2014 08/19/2015 loratadine (CLARITIN) 10 Take 1 Tab by 30 Tab 11 mg tablet mouth daily. 08/24/2014 09/09/2015 isosorbide mononitrate TAKE ONE 60 Tab 11 (IMDUR) 60 mg Extended TABLET BY Release 24 hour tablet MOUTH 2 TIMES A DAY 06/26/2014 12/21/2014 OLANZapine (ZYPREXA) 2.5 Take 1 Tab by 30 Tab 5 mg tablet mouth daily at bedtime. 06/26/2014 01/23/2015 NEXIUM 40 mg Capsule, Take 1 Cap by 30 Cap 6 Delayed Release(E.C.) mouth daily before breakfast. 06/14/2014 10/07/2015 fluticasone (FLONASE) 50 Administer 2 16 Gram 5 mcg/spray [place], Sprays in Suspension each nostril daily. 11/14/2013 [...] 11 100 unit/mL bedtime SolutionIndications: Diabetes mellitus 01/03/2015 HYDROcodone-acetaminophen Take 1 Tab by 0 (NORCO) 5-325 mg Oral mouth every 4 tablet hours as needed for Pain. may take one or two tabs every 4 hours as needed for pain. 11/27/2016 naproxen sodium 220 mg Take 440 mg 0 Oral Cap by mouth daily . 10/24/2012 01/03/2015 ibuprofen (MOTRIN) 800 mg Take 1 Tab by 90 Tab 3 Oral tablet mouth 3 times daily with meals. 09/10/2010 04/26/2018 MULTIVITAMIN PO Take 1 Tab by 0 mouth daily with lunch. 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 documented in this encounter Results * HEPATIC FUNCTION PANEL (12/13/2014 11:28 AM PULLING UNIT OPERATOR) TOTAL PROTEIN 6.9 6.4 - 8.2 g/dL [facility] [place] ALBUMIN 3.7 3.4 - 5.0 g/dL [facility] [place] BILIRUBIN TOTAL 0.4 <=1.1 mg/dL [facility] [place] BILIRUBIN 0.1 <=0.3 mg/dL [facility] DIRECT [facility] [place] ALKALINE 94 40 - 136 U/L [facility] PHOSPHATASE [facility] [place] AST 16 10 - 40 U/L [facility] [place] ALT 30 25 - 70 U/L [facility] [place] Specimen Blood Performing Organization Address City/State/Zipcovt Ph one Number [facility] CLIA# [id number] [place] [address] [address] [place] [address] [place] [address] LABORATORY SERVICES CLIA# [id number] [place] [address] [place] [address] [place] [address] documented in this encounter Visit Diagnoses Diagnosis LFT elevation Other abnormal blood chemistry documented in this encounter
--- OUTSIDE RECORDS SUMMARY | 2020-03-24 14:13 | XMS REPORT | Encounter Summary ---
Author Author [facility] Organization [facility] Address Unknown Phone Unavailable Care Team Providers Care Controlled Atmospheric Furnace Brazer Name Role Phone Shahram Mccallum MD PCP Unavailable Reason for Visit * Reason Comments Medication Refill Encounter Details Care Team Description Date Type Department Claus Couch MD [address] [place] [address] 01/03/2015 Refill [facility] [place] [address] [place] [address] Social History Date Tobacco Use [...]
--- OUTSIDE RECORDS SUMMARY | 2020-03-24 14:13 | XMS REPORT | Encounter Summary ---
Author Author [facility] Organization [facility] Address Unknown Phone Unavailable Care Team Providers Care Taxi Truck Driver Name Role Phone Shahram Mccallum MD PCP Unavailable Reason for Visit * Reason Comments Medication Refill Encounter Details Care Team Description Date Type Department Rosalinda Bal Medication Refill 01/10/2015 Telephone [facility] [address] [place] [address] Social History Date Tobacco Use [...] * Telephone Encounter - Rosalinda Bal - 01/10/2015 11:24 AM CUFF MATCHER Patient states Hydrocodone 5/325 2 every 6 hours not controlling pain. Per Dr Nelson lucas Oxycodone 5/325 one every 6 prn #30. Patient will picker/puller at [address]. MATCHER documented in this encounter Plan of Treatment Not on filedocumented as of this encounter Visit Diagnoses Not on filedocumented in this encounter
--- OUTSIDE RECORDS SUMMARY | 2020-03-24 14:14 | XMS REPORT | Encounter Summary ---
Author Author [facility] Organization [facility] Address Unknown Phone Unavailable Care Team Providers Care Oracle Brm Developer Name Role Phone Shahram Mccallum MD PCP Unavailable Reason for Visit * Reason Comments Shortness of Breath Chest hurts when he takes i n a deep breath. Anxiety Vomiting Vomited 1 time today and pa in got worse. Chest Pain Pain is worse with palpatio n and c/o that he has pain even with staff moving his shirt off him. Encounter Details Care Team Description Date Type Department Kentrell Severino MD NO ADDRESS ON FILE Rib pain (Primary Dx); Vomiting 10/17/[address] [facility] Emergency Department [address] [id number] Social History Date Tobacco Use [...] Signs Reading Time Taken Comments Vital Sign 118/63 10/17/2014 11:31 AM INBOUND SALES REPRESENTATIVE Blood Pressure 71 10/17/2014 11:31 AM INBOUND SALES REPRESENTATIVE Pulse 36.9 C (98.4 F) 10/17/2014 11:05 AM INBOUND SALES REPRESENTATIVE Temperature 20 10/17/2014 11:31 AM INBOUND SALES REPRESENTATIVE Respiratory Rate 96% 10/17/2014 11:31 AM INBOUND SALES REPRESENTATIVE Oxygen Saturation - - Inhaled Oxygen Concentration 83.9 kg (185 lb) 10/17/2014 11:05 AM INBOUND SALES REPRESENTATIVE Weight 167.6 cm (5' 6") 10/17/2014 11:05 AM INBOUND SALES REPRESENTATIVE Height 29.86 10/17/2014 11:05 AM INBOUND SALES REPRESENTATIVE Body Mass Index documented in this encounter Discharge Instructions * Instructions* Kristina Keller, RN - 10/17/2014 percocet for rib pain and Zofran for nausea. Clear liquid diet until feeling better. If a significant change in condition occurs see Dr or return to ER. * Attachments The following attachments cannot be sent through Care Everywhere.* NAUSEA AND VOMITING (NEPALI) documented in this encounter Medications at Time of Discharge Start Date End Date Medication Sig Dispensed Refills 08/30/2012 blood sugar diagnostic In the am & 1 Package 0 (ACCU-CHEK ACTIVE TEST) pm prn Misc Strp 12/29/2007 BETIMOL 0.5 % OP Drop Administer 1 0 Drop in both eyes 2 times daily. 10/17/2014 11/27/2015 NITROSTAT 0.4 mg Tablet, Place 1 Tab 25 Tab 0 Sublingual under tongue every 5 minutes as needed for Chest Pain. 10/13/2014 10/14/2015 pioglitazone (ACTOS) 30 Take 1 Tab by 90 Tab 3 mg tablet mouth daily. 10/11/2014 12/06/2014 traZODone (DESYREL) 50 mg Take 1 Tab by 30 Tab 5 tabletIndications: mouth daily Depression at bedtime. 08/26/2015 prochlorperazine maleate Take 10 mg by 0 (COMPAZINE) 10 mg tablet mouth every 6 hours as needed. 10/05/2014 08/26/2015 FLUoxetine (PROZAC) 20 mg Take 2 Caps 60 Cap 5 capsule by mouth daily. 10/05/2014 11/05/2014 zolpidem (AMBIEN) 10 mg TAKE 1 TABLET 30 Tab 0 tablet BY MOUTH AT BEDTIME NEEDED. 09/22/2014 03/25/2015 fenofibrate Take 1 Tab by 30 Tab 5 nanocrystallized (TRICOR) mouth daily 145 mg tablet with supper. 09/14/2014 01/03/2015 oxyCODONE-acetaminophen Take 1-2 Tabs 50 Tab 0 (PERCOCET) 5-325 mg by mouth tabletIndications: Back every 6 hours pain as needed for Pain, Moderate. 09/10/2014 12/06/2014 LORazepam (ATIVAN) 1 mg TAKE ONE 60 Tab 3 tablet TABLET BY MOUTH 2 TIMES A DAY. 09/07/2014 03/25/2015 simvastatin (ZOCOR) 40 mg TAKE ONE 90 Tab 1 tablet TABLET (40MG) BY MOUTH EVERY DAY IN THE EVENING 08/24/2014 08/19/2015 loratadine (CLARITIN) 10 Take 1 Tab by 30 Tab 11 mg tablet mouth daily. 08/24/2014 09/09/2015 isosorbide mononitrate TAKE ONE 60 Tab 11 (IMDUR) 60 mg Extended TABLET BY Release 24 hour tablet MOUTH 2 TIMES A DAY 08/17/2014 12/13/2014 phenytoin sodium extended TAKE 2 90 Cap 3 release (DILANTIN) 100 mg CAPSULES BY capsule MOUTH EVERY MORNING AND ONE CAPSULE AT BEDTIME. 08/09/2014 12/06/2014 clopidogrel (PLAVIX) 75 Take 1 Tab by 30 Tab 5 mg Tablet mouth daily. 08/09/2014 12/06/2014 bethanechol (URECHOLINE) TAKE ONE 120 Tab 5 25 mg tablet TABLET BY MOUTH FOUR TIMES A DAY 07/13/2014 12/06/2014 ZETIA 10 mg tablet Take 1 Tab by 30 Tab 5 mouth daily at bedtime. 07/11/2014 12/06/2014 tamsulosin (FLOMAX) 0.4 TAKE ONE 30 Cap 5 mg Extended Release 24 CAPSULE BY hour capsule MOUTH EVERY DAY 30 MINUTES AFTER SUPPER 06/26/2014 12/21/2014 OLANZapine (ZYPREXA) 2.5 Take 1 Tab by 30 Tab 5 mg tablet mouth daily at bedtime. 06/26/2014 01/23/2015 NEXIUM 40 mg Capsule, Take 1 Cap by 30 Cap 6 Delayed Release(E.C.) mouth daily before breakfast. 06/14/2014 10/07/2015 fluticasone (FLONASE) 50 Administer 2 16 Gram 5 mcg/spray [place], Sprays in Suspension each nostril daily. 03/09/2014 10/26/2014 ramipril (ALTACE) 10 mg Take 1 Cap by 90 Cap 1 capsule mouth daily. 11/14/2013 08/16/2015 fluticasone (FLOVENT HFA) Take [...] tablet mouth 3 times daily with meals. 12/06/2014 FLUoxetine (PROZAC) 20 mg Take by 0 Oral tablet mouth daily. take 2 capsules daily 09/10/2010 04/26/2018 MULTIVITAMIN PO Take 1 Tab by 0 mouth daily with lunch. documented as of this encounter Procedure Notes * David Ferrer MD - 10/18/2014 9:11 AM INBOUND SALES REPRESENTATIVE Associated Order(s): EKG 12-LEAD [address] [place] [address] Patient Name: OLIVERIO DALTON CSN: [id number] : 1950 Provider: David Bernard M.D. Admitted: 10/17/2014 ELECTROCARDIOGRAM DATE OF SERVICE: 10/17/2014 10/17/2014 at 1057. The rhythm is regular, sinus in origin with a rate of 74 geneva ts per minute. MO interval is borderline prolonged. Limb leads show low voltage. Minimal R waves are noted through V4 across the chest and R wave transition is delayed. No old tracings are available for comparison. DIAGNOSIS: 1) Sinus rhyth m, rate 74 beats per minute. 2) Borderline prolonged MO interval. 3) Low voltage limb lead complexes. 4) Clockwise rotation of horizontal electrical axis. 5) Po ssible anteroseptal wall myocardial infarct of undetermined age. Dictated by: David Bernard M.D./MEDQ D: [id number] V: [id number] cc: MD Kentrell Thakkar M.D. UND SALES REPRESENTATIVE documented in this encounter ED Notes * Kentrell Severino MD - 10/17/2014 11:07 AM INBOUND SALES REPRESENTATIVE HISTORY OF PRESENT ILLNESS Oliverio Dalton, a 64 y.o. male presents to the ED with a Chief Complaint of Sh ortness of Breath, Anxiety, Vomiting and Chest Pain About a month ago fell and cracked a rib on left side with intermittant pain sin ce. This morning developed vomiting and diarrhea and after vomiting the left rah st pain is much worse. Now very anxious and also short of breath. No fever. No a bd pain The history is provided by the patient and a relative. The patient arrived by pr ivate vehicle. The patient arrived from home. Shortness of Breath This is a new problem. The problem occurs intermittently.The current episode sta rted 3 to 5 hours ago. The problem has not changed since onset.Associated sympto ms include cough, chest pain and vomiting. Pertinent negatives include no fever, no sputum production, no wheezing, no syncope and no abdominal pain. Associated symptoms comments: vomting and diarrhea today and lateral left chest pain is wo rse since vomiting. . He has tried nothing for the symptoms. Anxiety Additional symptoms of the illness do not include no appetite change or no abdom inal pain. Vomiting Associated symptoms include cough and diarrhea. Pertinent negatives include no a bdominal pain, no chills and no fever. Chest Pain Primary symptoms include shortness of breath, cough, nausea and vomiting. Pertin ent negatives for primary symptoms include no fever, no syncope, no wheezing and no abdominal pain. Pertinent negatives for associated symptoms include no diaphoresis. REVIEW OF SYSTEMS Review of Systems Constitutional: Negative for fever, chills, diaphoresis and appetite change. Respiratory: Positive for cough and shortness of breath. Negative for sputum pro duction, choking, chest tightness and wheezing. Cardiovascular: Positive for chest pain. Negative for syncope. Gastrointestinal: Positive for nausea, vomiting and diarrhea. Negative for abdom inal pain and constipation. PAST MEDICAL HISTORY REVIEWED MEDICAL Patient has a past medical history of Wrist sprain (08/10); Contusion, back (); Cataract; Unspecified disease of respiratory system; Glaucoma; Asthma; D iabetes; Seizure disorder; Unspecified disorder of lipoid metabolism; Coronary a rtery disease; Chronic ischemic heart disease, unspecified; Unspecified essentia l hypertension; COPD (chronic obstructive pulmonary disease); and Anxiety. SURGICAL Patient has past surgical history that includes surgical other (05/2001); catara ct removal (2000); surgical other (2001); surgical other (1999); surgical other (11/2001); turp (08/2003); surgical other (04/12); surgical other (09/12); surgica l other (08/14); psa (09/13); surgical other (07/11); colonoscopy,diagnostic (01/07); hernia repair (1988); lap cholecystectomy (05/17/07); coronary artery by pass graft; heart catheterization (04/10); lap,appendectomy (05/28/2012); repair u mbilical colleen,5+y/o,reduc (05/28/2012); and colonoscopy,diagnostic (12/28/2013). FAMILY Patient's family history includes Asthma in his mother and sister; Diabetes in h is mother and sister; Healthy in his daughter, daughter, daughter, son, son, son , and son; Heart Disease in his sister and son; Lung Cancer in his brother; Othe r in his father, mother, and sister; Respiratory Disease in his mother and siste r; Seizures in his brother. SOCIAL reports that he has been smoking Cigarettes. He has a 40 pack-year smoking his tory. He has never used smokeless tobacco. He reports that he currently engages in sexual activity. He reports that he does not drink alcohol or use illicit aron gs. PROBLEM LIST Patient has Renal stone; Unspecified essential hypertension; BPH w/o Urinary Obs /LUTS; Neurogenic bladder, NOS; Unspecified Glaucoma; Bipolar Disorder, Unspecif ied; Hyperlipidemia; Tubular Adenoma; MRSA (methicillin resistant staph aureus) culture positive; Status post laparoscopic appendectomy; Umbilical hernia withou t mention of obstruction or gangrene; Abdominal pain, suprapubic; Bradycardia; B ack pain; LFT elevation; Osteoarthritis of right knee; Carpal tunnel syndrome; D iabetes mellitus; CAD (coronary artery disease); COPD (chronic obstructive pulmo nary disease); Seizure disorder; Depression; Suicidal behavior; and Status post colonoscopy on his problem list. ALLERGIES Codeine; Doxycycline; Phenobarbital; Piperacillin-tazobactam; Terazosin; and Flores ium HOME MEDICATIONS Patient's Home Medications Current Home Medications AEROBID IN ALBUTEROL (PROAIR HFA) 90 MCG/ACTUATION HFA AEROSOL INHALER HFA INHALER ALBUTEROL IN ASPIRIN EC 81 MG ORAL TBEC BETHANECHOL (URECHOLINE) 25 MG TABLET BETIMOL 0.5 % OP DROP BLOOD SUGAR DIAGNOSTIC (ACCU-CHEK ACTIVE TEST) MISC STRP CLOPIDOGREL (PLAVIX) 75 MG TABLET FENOFIBRATE NANOCRYSTALLIZED (TRICOR) 145 MG TABLET FLUOXETINE (PROZAC) 20 MG CAPSULE FLUOXETINE (PROZAC) 20 MG ORAL TABLET FLUTICASONE (FLONASE) 50 MCG/SPRAY SPRAY, SUSPENSION FLUTICASONE (FLOVENT HFA) 110 MCG/ACTUATION AEROSOL HYDROCODONE-ACETAMINOPHEN (NORCO) 5-325 MG ORAL TABLET IBUPROFEN (MOTRIN) 800 MG ORAL TABLET INSULIN GLARGINE (LANTUS) 100 UNIT/ML SOLUTION ISOSORBIDE MONONITRATE (IMDUR) 60 MG EXTENDED RELEASE 24 HOUR TABLET LORATADINE (CLARITIN) 10 MG TABLET LORAZEPAM (ATIVAN) 1 MG TABLET MAGNESIUM OXIDE 250 MG ORAL TAB MULTIVITAMIN PO NAPROXEN SODIUM 220 MG ORAL CAP NEXIUM 40 MG CAPSULE, DELAYED RELEASE(E.C.) OLANZAPINE (ZYPREXA) 2.5 MG TABLET ONDANSETRON (ZOFRAN ODT) 4 MG TABLET, RAPID DISSOLVE OXYCODONE-ACETAMINOPHEN (PERCOCET) 5-325 MG TABLET PHENYTOIN SODIUM EXTENDED RELEASE (DILANTIN) 100 MG CAPSULE PIOGLITAZONE (ACTOS) 30 MG TABLET PROCHLORPERAZINE MALEATE (COMPAZINE) 10 MG TABLET RAMIPRIL (ALTACE) 10 MG CAPSULE SIMVASTATIN (ZOCOR) 40 MG TABLET TAMSULOSIN (FLOMAX) 0.4 MG EXTENDED RELEASE 24 HOUR CAPSULE TRAZODONE (DESYREL) 50 MG TABLET TYLENOL 325 MG ORAL TAB ZETIA 10 MG TABLET ZOLPIDEM (AMBIEN) 10 MG TABLET Medications Modified during this Encounter Modified Medication Previous Medication NITROSTAT 0.4 MG TABLET, SUBLINGUAL NITROSTAT 0.[address] 1 Tab under tongue every 5 minutes as needed for Chest Pain. Place 1 Tab under tongue every 5 minutes as needed for Chest Pain. Medications Discontinued during this Encounter PHYSICAL EXAM INITIAL VS BP: 111/62 mmHg (10/17/14 1105), Heart Rate (Monitored): 75 bpm (10/17/14 1105), Resp: 24 (10/17/14 1105), Temp: 98.4 F (36.9 C) (10/17/14 1105), Temp src: Oral (10/17/14 1105), SpO2: 97 % (10/17/14 1105), Height: 5' 6" (167.6 cm) (10/08 1105), Weight: 83.915 kg (10/17/14 1105), BMI (Calculated): 29.92 (10/17/14 1105) No LMP for male patient. Physical Exam Nursing note and vitals reviewed. Constitutional: He is oriented to person, place, and time. He appears well-devel oped and well-nourished. No distress. HENT: Head: Normocephalic and atraumatic. Right Ear: External ear normal. Left Ear: External ear normal. Eyes: Conjunctivae are normal. Pupils are equal, round, and reactive to light. R ight eye exhibits no discharge. Left eye exhibits no discharge. Neck: Normal range of motion. Neck supple. No JVD present. Cardiovascular: Normal rate, regular rhythm, normal heart sounds and intact dist al pulses. Pulmonary/Chest: Effort normal and breath sounds normal. No stridor. No respirat ory distress. He has no wheezes. He has no rales. He exhibits tenderness. Abdominal: Soft. Bowel sounds are normal. He exhibits no distension and no mass. There is no tenderness. Musculoskeletal: Normal range of motion. He exhibits no edema. Lymphadenopathy: He has no cervical adenopathy. Neurological: He is alert and oriented to person, place, and time. No cranial ne rve deficit. Skin: Skin is warm and dry. No rash noted. Psychiatric: He has a normal mood and affect. His behavior is normal. DIAGNOSTICS LAB: Results for orders placed during the hospital encounter of 10/17/14 (from the pa st 24 hour(s)) COMPREHENSIVE METABOLIC PANEL Result Value Range SODIUM 132 (*) 134-145 mmol/L POTASSIUM 4.5 3.5-5.1 mmol/L CHLORIDE 99 98-107 mmol/L CO2 25 22-31 mmol/L CALCIUM 8.5 8.5-10.1 mg/dL BUN 14 7-20 mg/dL CREATININE 0.81 0.67-1.17 mg/dL GLUCOSE 115 (*) 70-100 mg/dL TOTAL PROTEIN 6.9 6.4-8.2 g/dL ALBUMIN 3.6 3.4-5.0 g/dL BILIRUBIN TOTAL 0.4 <=1.1 mg/dL ALKALINE PHOSPHATASE 126 40-136 U/L AST 22 10-40 U/L ALT 43 25-70 U/L GFR >60 >=60 mL/min/1.73 sq meter GFR, >60 >=60 mL/min/1.73 sq meter ANION GAP 8 4-20 mmol/L TROPONIN Result Value Range TROPONIN I <0.04 <0.40 ng/mL MYOGLOBIN Result Value Range MYOGLOBIN 27 16-97 ng/mL CBC WITH DIFFERENTIAL Result Value Range WBC 11.5 (*) 3.0-10.4 K/uL RBC 4.69 4.15-5.75 M/uL HEMOGLOBIN 13.9 13.8-17.4 g/dL HEMATOCRIT 40.8 38.6-49.4 % MCV 86.9 79.0-100.0 fL MCH 29.6 28.0-34.0 pg MCHC 34.1 31.0-35.0 g/dL RDW 14.5 (*) 12.1-14.1 % PLATELETS 440 (*) 148-408 K/uL MPV 7.4 7.4-10.6 fL NEUTROPHILS 68 43-73 % LYMPHOCYTES 24 19-47 % MONOCYTES 5 3-9 % EOSINOPHILS 2 0-6 % BASOPHILS 0 0-1 % NEUTROPHIL ABSOLUTE 7.85 (*) 1.30-7.60 K/uL LYMPHOCYTE ABSOLUTE 2.77 0.60-4.90 K/uL MONOCYTE ABSOLUTE 0.58 0.10-0.90 K/uL EOSINOPHIL ABSOLUTE 0.25 0.00-0.40 K/uL BASOPHILS ABSOLUTE 0.03 0.00-0.10 K/uL RADIOLOGY: XR CHEST PA OR AP Radiologist Impression: IMPRESSION: No acute process Electronically Signed By: Erick Smith MD, Signed On: 10/17/2014 11:30 AM EKG: no acute changes noted PROCEDURES Procedures MEDICAL DECISION MAKING AND PLAN OF CARE REEVALUATION CASE DISCUSSED Medications Administered During the ED Stay from 10/17/2014 1045 to 10/17/2014 1 218 Date/Time Order Dose Route Action 10/17/2014 1129 ondansetron (ZOFRAN) 4 mg/2 mL injection 4 mg 4 mg IV Push 10/17/2014 1131 fentaNYL PF (SUBLIMAZE) 50 mcg/mL injection 50 mcg 50 mcg IV P ush 10/17/2014 1129 sodium chloride 0.9% bolus solution 500 mL 500 mL IV New Bag . New Prescriptions for this Encounter LAST VITALS BP: 118/63 mmHg (10/17/14 1131), Heart Rate (Monitored): 75 bpm (10/17/14 1105), Resp: 20 (10/17/14 1131), Temp: 98.4 F (36.9 C) (10/17/14 1105), Temp src: Oral (10/17/14 1105), SpO2: 96 % (10/17/14 1131) CLINICAL IMPRESSION Final diagnoses: Rib pain Vomiting CODING Coding DISPOSITION, EDUCATION AND MEDICATION RECONCILIATION Medications reconciled. See after visit summary for patient education on discha rged patients. CBC, CMP troponin and myoglobin, CXR, will give a fluid bolus and Zofran Fentany l for pain. Labs reassuring. Feeling better. OK to go home. Has percocet for rib pain and Zo irving for nausea. Clear liquid diet until feeling better. If a significant change in condition occurs see Dr or return to ER. UND SALES REPRESENTATIVE * Kristina Keller RN - 10/17/2014 11:05 AM INBOUND SALES REPRESENTATIVE Brought to ER by friend. Pt very anxious, holding chest & reporting that it hurts when ever staff touches chest &/or moves his shirt up. Noted that pt is holding his breath at times & encouraged to not do this. UND SALES REPRESENTATIVE documented in this encounter Plan of Treatment Not on filedocumented as of this encounter Procedures Comments Procedure Name Priority Date/Time Associated Diag nosis EKG 12-LEAD Stat 10/18/2014 11:33 AM INBOUND SALES REPRESENTATIVE TELEMETRY REPORT 10/18/2014 10:34 AM INBOUND SALES REPRESENTATIVE CBC WITH DIFFERENTIAL Stat 10/17/2014 11:23 AM INBOUND SALES REPRESENTATIVE TROPONIN Stat 10/17/2014 11:23 AM INBOUND SALES REPRESENTATIVE MYOGLOBIN Stat 10/17/2014 11:23 AM INBOUND SALES REPRESENTATIVE COMPREHENSIVE METABOLIC Stat 10/17/2014 PANEL 11:23 AM INBOUND SALES REPRESENTATIVE XR CHEST PA OR AP 1 VW Stat 10/17/2014 11:22 AM INBOUND SALES REPRESENTATIVE documented in this encounter Results * EKG 12-LEAD (10/18/2014 11:33 AM INBOUND SALES REPRESENTATIVE) Narrative Performed At This result has an attachment that is n ot available. Transcriptions David Bernard MD - 10/18/2014 9:11 AM INBOUND SALES REPRESENTATIVE [address] [place], [place] [address] Patient Name: OLIVERIO DALTON CSN: [id number] : 1950 Provider: David Bernard M.D. Admitted: 10/17/2014 ELECTROCARDIOGRAM DATE OF SERVICE: 10/17/2014 10/17/2014 at 1057. The rhythm is regula r, sinus in origin with a rate of 74 beats per minute. MO interval is borderline prolonged. Limb leads show low voltage. Minimal R waves are noted through V4 across the chest and R wave transition is delayed. No old tracings are available for comparison. DIAGNOSIS: 1) Sinus rhythm, rate 74 beats per minute. 2) Borderline prolonged MO interval. 3) Low voltage limb lead complexes. 4) Clockwise rotation of horizontal electrical axis. 5) Possible anteroseptal wall myocardial infarct of undetermined age. Dictated by: David Bernard M.D./MEDQ D: [id number] V: [id number] cc: MD Kentrell Thakkar M.D. * TELEMETRY REPORT (10/18/2014 10:34 AM INBOUND SALES REPRESENTATIVE) Narrative Performed At This result has an attachment that is n ot available. * CBC WITH DIFFERENTIAL (10/17/2014 11:23 AM INBOUND SALES REPRESENTATIVE) WBC 11.5 (H) 3.0 - 10.4 K/uL [facility] RBC 4.69 4.15 - 5.75 M/uL [facility] HEMOGLOBIN 13.9 13.8 - 17.4 g/dL [facility] HEMATOCRIT 40.8 38.6 - 49.4 % [facility] MCV 86.9 79.0 - 100.0 fL [facility] MCH 29.6 28.0 - 34.0 pg [facility] MCHC 34.1 31.0 - 35.0 g/dL [facility] [place] [facility] RDW 14.5 (H) 12.1 - 14.1 % [facility] PLATELETS 440 (H) 148 - 408 K/uL [facility] MPV 7.4 7.4 - 10.6 fL [facility] NEUTROPHILS 68 43 - 73 % [facility] LYMPHOCYTES 24 19 - 47 % [facility] MONOCYTES 5 3 - 9 % [facility] EOSINOPHILS 2 0 - 6 % [facility] BASOPHILS 0 0 - 1 % [facility] NEUTROPHIL 7.85 (H) 1.30 - 7.60 K/uL [facility] LYMPHOCYTE 2.77 0.60 - 4.90 K/uL [facility] MONOCYTE 0.58 0.10 - 0.90 K/uL [facility] EOSINOPHIL 0.25 0.00 - 0.40 K/uL [facility] BASOPHILS 0.03 0.00 - 0.10 K/uL [facility] Specimen Blood Performing Organization Address City/State/Zipcode Ph one Number [facility] CLIA# [id number] [place] [address] - [facility] [address] [place] [address] LABORATORY SERVICES CLIA# [id number] [place] [address] - [address] * MYOGLOBIN (10/17/2014 11:23 AM INBOUND SALES REPRESENTATIVE) Pathologist [facility] MYOGLOBIN 27 16 - 97 ng/mL [facility] - [facility] Specimen Blood Performing Organization Address [facility] one Number [facility] CLIA# [id number] [place] [address] - [facility] [address] [place] [address] LABORATORY SERVICES CLIA# [id number] [place] [address] - [address] * TROPONIN (10/17/2014 11:23 AM INBOUND SALES REPRESENTATIVE) Pathologist [facility] TROPONIN I <0.04 <0.40 ng/mL [facility] [place] Specimen Blood Performing Organization Address [facility] one Number [facility] CLIA# [id number] [place] [address] - [facility] [address] [place] [address] LABORATORY SERVICES CLIA# [id number] [place] [address] - [address] * COMPREHENSIVE METABOLIC PANEL (10/17/2014 11:23 AM INBOUND SALES REPRESENTATIVE) SODIUM 132 (L) 134 - 145 mmol/L [facility] POTASSIUM 4.5 3.5 - 5.1 mmol/L [facility] [place] CHLORIDE 99 98 - 107 mmol/L [facility] [place] CO2 25 22 - 31 mmol/L [facility] [place] CALCIUM 8.5 8.5 - 10.1 mg/dL [facility] BUN 14 7 - 20 mg/dL [facility] [place] CREATININE 0.81 0.67 - 1.17 mg/dL [facility] [place] GLUCOSE 115 (H) 70 - 100 mg/dL [facility] [place] TOTAL PROTEIN 6.9 6.4 - 8.2 g/dL [facility] ALBUMIN 3.6 3.4 - 5.0 g/dL [facility] [place] BILIRUBIN TOTAL 0.4 <=1.1 mg/dL [facility] ALKALINE 126 40 - 136 U/L [facility] PHOSPHATASE [facility] [place] AST 22 10 - 40 U/L [facility] [place] ALT 43 25 - 70 U/L [facility] GFR >60 >=60 mL/min/1.73 sq [facility] Comment: meter LABORATORY eGFR has not been validated [facility] for use in the elderly (> [...] result. GFR, >60 >=60 mL/min/1.73 sq [facility] [place] ANION GAP 8 4 - 20 mmol/L [facility] [place] Specimen Blood Performing Organization Address City/State/[facility] Ph one Number [facility] CLIA# [id number] [place], [place] [address] - [address] LABORATORY SERVICES CLIA# [id number] [place] [address] - [address] * XR CHEST PA OR AP (10/17/2014 11:22 AM INBOUND SALES REPRESENTATIVE) Specimen Impressions Performed At IMPRESSION: INTERFACE SYSTEM No acute process Electronically Signed By: Erick harding MD, Signed On: 10/17/2014 11:30 AM Narrative Performed At RADIOLOGIC EXAM: Portable chest. October.11 18 hour INTERFACE SYSTEM INDICATION: Shortness of breath. Diffic ulty breathing. FINDINGS: The heart size is normal. The pulmonary vascularity is normal. There is no pneumothorax or effusion. The lungs are clear. Mediasti nal contours are normal. Sternotomy noted. Exam rotated. Comparison to May 03, 2013 Procedure Note Interface, [facility] [place] Radiology Results - 10/17/2014 11:34 AM INBOUND SALES REPRESENTATIVE RADIOLOGIC EXAM: Portable chest. October.1118 hour INDICATION: Shortness of breath. Difficulty breathing. FINDINGS: The heart size is normal. The pulmonary vascularity is normal. There is no pneumothorax or effusion. The lungs are clear. Mediastinal contours are normal. Sternotomy noted. Exam rotated. Comparison to May 03, 2013 IMPRESSION IMPRESSION: No acute process Electronically Signed By: Erick Smith MD, Signed On: 10/17/2014 11:30 AM Performing Organization Address City/State/Zipcode one Number INTERFACE SYSTEM INTERFACE SYSTEM Refer to clinic/hospital department documented in this encounter Visit Diagnoses Diagnosis Rib pain - Primary Chest pain, unspecified Vomiting Vomiting alone documented in this encounter Administered Medications Action Date Dose Rate Site Medication Order MAR Action 10/17/2014 11:31 AM INBOUND SALES REPRESENTATIVE 50 mcg fentaNYL PF (SUBLIMAZE) 50 mcg/mL Push injection 50 mcg 50 mcg, IV, ONE TIME ONLY, 1 dose, 10/17/14 at 1115, Routine 10/17/2014 12:22 PM INBOUND SALES REPRESENTATIVE 50 mcg fentaNYL PF (SUBLIMAZE) 50 mcg/mL Given injection 50 mcg 50 mcg, IV, ONE TIME ONLY, 1 dose, 10/17/14 at 1230, Routine 10/17/2014 11:29 AM INBOUND SALES REPRESENTATIVE 4 mg ondansetron (ZOFRAN) 4 mg/2 mL injection Push 4 mg 4 mg, IV, ONE TIME ONLY, 1 dose, 10/17/14 at 1115, Routine 10/17/2014 11:29 AM INBOUND SALES REPRESENTATIVE 500 mL 1000 mL/hr sodium chloride 0.9% bolus solution 500 New Bag mL 500 mL, IV, ONE TIME ONLY, 1 dose, 10/17/14 at 1115, at 1,000 mL/hr, Administer over 30 Minutes, Routine documented in this encounter
--- OUTSIDE RECORDS SUMMARY | 2020-03-24 14:14 | XMS REPORT | Encounter Summary ---
Author Author [facility] Organization [facility] Address Unknown Phone Unavailable Care Team Providers Care District Manager Name Role Phone Shahram Mccallum MD PCP Unavailable Encounter Details Care Team Description Date Type Department Shahram Mccallum MD NO ADDRESS ON FILE Ftsc, Outpt Lab 10/25/2014 [facility] Outpatient Encounter Laboratory [address] [phone] Social History Date Tobacco Use [...] 50 Administer 2 16 Gram 5 mcg/spray [place], Sprays in Suspension each nostril daily. 03/09/2014 [...] Procedure Name Priority Date/Time Associated Diag nosis COMPREHENSIVE METABOLIC Stat 10/25/2014 LFT el evation PANEL 9:56 AM SOCIAL WORKER ASSISTANT documented in this encounter Results * COMPREHENSIVE METABOLIC PANEL (10/25/2014 9:56 AM SOCIAL WORKER ASSISTANT) SODIUM 135 134 - 145 mmol/L [facility]AT[facility] - [place] POTASSIUM 4.1 3.5 - 5.1 mmol/L [facility] Comment: LABORATORY Specimen hemolyzed, results SERVICES - [facility] may be falsely increased. [place] CHLORIDE 103 98 - 107 mmol/L [facility] LABORATORY SERVICES - [facility] [place] CO2 26 22 - 31 mmol/L [facility] - [place] CALCIUM 9.2 8.5 - 10.1 mg/dL [facility] [place] BUN 11 7 - 20 mg/dL [facility] [place] CREATININE 0.66 (L) 0.67 - 1.17 mg/dL [facility] [place] GLUCOSE 132 (H) 70 - 100 mg/dL [facility] [place] TOTAL PROTEIN 7.2 6.4 - 8.2 g/dL [facility] [place] ALBUMIN 3.7 3.4 - 5.0 g/dL [facility] [place] BILIRUBIN TOTAL 0.2 <=1.1 mg/dL [facility] LABORATORY SERVICES - [facility] F[facility] ALKALINE 109 40 - 136 U/L [facility] PHOSPHATASE LABORATORY SERVICES - [place] AST 20 10 - 40 U/L [facility] Comment: LABORATORY Specimen hemolyzed, results SERVICES - [place] may be falsely increased. [place] ALT 35 25 - 70 U/L [facility] LABORATORY SERVICES - [facility] F[place] GFR >60 >=60 mL/min/1.73 sq [facility] Comment: meter LABORATORY eGFR has not been validated SERVICES - [facility] for use in the elderly (> 70 [...] result. GFR, >60 >=60 mL/min/1.73 sq [facility] [place] meter LABORATORY SERVICES - [place] ANION GAP 6 4 - 20 mmol/L [facility] LABORATORY SERVICES - [facility] FAYE Specimen Blood Performing Organization Address City/State/Zipcode Ph one Number [facility] LABORATORY SERVICES CLIA# [id number] [place] [address] [address] [address] LABORATORY SERVICES CLIA# [id number] [place] [address] - [address] documented in this encounter Visit Diagnoses Diagnosis LFT elevation Other abnormal blood chemistry documented in this encounter
--- OUTSIDE RECORDS SUMMARY | 2020-03-24 14:14 | XMS REPORT | Encounter Summary ---
Author Author [facility] Organization [facility] Address Unknown Phone Unavailable Care Team Providers Care Marine Tower Operator Name Role Phone Shahram Mccallum MD PCP Unavailable Encounter Details Care Team Description Date Type Department Shahram Mccallum MD NO ADDRESS ON FILE Ftsc, Outpt Lab 10/11/2014 [facility] Outpatient Encounter Laboratory [address] [phone] Social History Date Tobacco Use [...] Drop in both eyes 2 times daily. 10/11/2014 12/06/2014 traZODone (DESYREL) 50 mg [...] 50 Administer 2 16 Gram 5 mcg/spray [place], Sprays in Suspension each nostril daily. 03/09/2014 [...] every 4 hours as needed for pain. 05/09/2013 10/13/2014 ACTOS 30 mg Oral tablet Take 1 Tab by 30 Tab 11 mouth daily. 05/09/2013 10/17/[address] 1 Tab 25 Tab 0 Sublingual Subl under tongue every 5 minutes as needed for Chest Pain. 11/27/2016 naproxen sodium 220 mg Take 440 [...] Date/Time Associated Diag nosis HEMOGLOBIN A1C Stat 10/11/2014 Diabetes mellit us 8:53 AM SYRUP MIXER LIPID PANEL Stat 10/11/2014 Hyperlipidemia 8:53 AM SYRUP MIXER COMPREHENSIVE METABOLIC Stat 10/11/2014 Hyperl ipidemia PANEL 8:53 AM SYRUP MIXER documented in this encounter Results * HEMOGLOBIN A1C (10/11/2014 8:53 AM SYRUP MIXER) HEMOGLOBIN A1C 6.6 (H) 0.0 - 6.0 % [facility] - [place] EST. AVG 143 mg/dL [facility] GLUCOSE, A1C LABORATORY SERVICES - [place] Specimen Blood Performing Organization Address [facility] one [facility] LABORATORY SERVICES CLIA# [id number] [place] [address] [address] LABORATORY SERVICES CLIA# [id number] [place] [address] - [address] * LIPID PANEL (10/11/2014 8:53 AM SYRUP MIXER) CHOLESTEROL 125 mg/dL [facility] - [place] TRIGLYCERIDE 114 mg/dL [facility] - [place] HDL 59 mg/dL [facility] - [place] LDL CALCULATED 43 <=130 mg/dL [facility] - [place] NON-HDL 66 mg/dL [facility] CHOLESTEROL LABORATORY SERVICES - [place] Specimen Blood Narrative Performed At TOTAL CHOLESTEROL mg/dL [facility] LABORATORY Desirable <200 SERVICES - [facility] Borderline high 200-239 [place] [...] Based on AHA/NCEP Guidelines Performing Organization Address City/[facility] [place] Ph one Number [facility] LAB[facility] SERVICES CLIA# [id number] [place], [place] [address] LABORATORY SERVICES CLIA# [id number] [place] [address] - [address] * COMPREHENSIVE METABOLIC PANEL (10/11/2014 8:53 AM SYRUP MIXER) SODIUM 135 134 - 145 mmol/L [facility] - [place] POTASSIUM 4.0 3.5 - 5.1 mmol/L [facility] - [place] CHLORIDE 100 98 - 107 mmol/L [facility] - [place] CO2 28 22 - 31 mmol/L [facility] - [place] CALCIUM 8.4 (L) 8.5 - 10.1 mg/dL [facility] - [place] BUN 12 7 - 20 mg/dL [facility] - [place] CREATININE 0.81 0.67 - 1.17 mg/dL [facility] - [place] GLUCOSE 158 (H) 70 - 100 mg/dL [facility] - [place] TOTAL PROTEIN 7.0 6.4 - 8.2 g/dL [facility] - [place] ALBUMIN 3.7 3.4 - 5.0 g/dL [facility] - [place] BILIRUBIN TOTAL 0.4 <=1.1 mg/dL [facility] - [place] ALKALINE 278 (H) 40 - 136 U/L [facility] PHOSPHATASE LABORATORY SERVICES - [place] AST 284 (H) 10 - 40 U/L [facility] - [place] ALT 194 (H) 25 - 70 U/L [facility] SERVICES - [facility] FAY[place] GFR >60 >=60 mL/min/1.73 sq [facility] Comment: meter LABORATORY eGFR has not been validated [facility] for use in the elderly [...] result. GFR, >60 >=60 mL/min/1.73 sq [facility] [place] meter LABORATORY SERVICES - [place] ANION GAP 7 4 - 20 mmol/L [facility] - [place] Specimen Blood Performing Organization Address City/State/Zip[place] Ph one Number [facility] CLIA# [id number] [place] [address] [address] [place] [address] [place] [address] LABORATORY SERVICES CLIA# [id number] [place] [address] - [facility] FAY[place] [address] documented in this encounter Visit Diagnoses Diagnosis Hyperlipidemia Other and unspecified hyperlipidemia Diabetes mellitus Type II or unspecified type diabetes me llitus without mention of complication, not stated as uncontrolled documented in this encounter
--- OUTSIDE RECORDS SUMMARY | 2020-03-24 14:14 | XMS REPORT | Encounter Summary ---
Author Author [facility] Organization [facility] Address Unknown Phone Unavailable Care Team Providers Care President Ceo & Founder Name Role Phone Shahram Mccallum MD PCP Unavailable Reason for Visit * Reason Comments Vomiting Encounter Details Care Team Description Date Type Department Shahram Mccallum MD NO ADDRESS ON FILE Vomiting 10/08/2014 Telephone [facility] [address] [place] [address] Social History Date Tobacco Use [...] * Telephone Encounter - Nuris Miramontes - 10/08/2014 12:56 PM UNDER SHERIFF C/o nausea, vomiting and diarrhea. New order for compazine 10 mg sig: one tab ev len 6 hours prn to [facility]. R SHERIFF documented in this encounter Plan of Treatment Not on filedocumented as of this encounter Visit Diagnoses Not on filedocumented in this encounter
--- OUTSIDE RECORDS SUMMARY | 2020-03-24 14:14 | XMS REPORT | Encounter Summary ---
Author Author [facility] Organization [facility] Address Unknown Phone Unavailable Care Team Providers Care Manager Of Application Development Name Role Phone Shahram Mccallum MD PCP Unavailable Reason for Visit * Reason Comments Medication Refill Encounter Details Care Team Description Date Type Department Shahram Mccallum MD NO ADDRESS ON FILE 10/13/2014 Refill [facility] Primar y Care [address] [phone] Social History Date Tobacco Use Types Packs/Day [...]
--- OUTSIDE RECORDS SUMMARY | 2020-03-24 14:14 | XMS REPORT | Encounter Summary ---
Author Author [facility] Organization [facility] Address Unknown Phone Unavailable Care Team Providers Care Sash Maker Name Role Phone Shahram Mccallum MD PCP Unavailable Reason for Visit * Reason Comments Medication Refill Encounter Details Care Team Description Date Type Department Shahram Mccallum MD NO ADDRESS ON FILE 10/05/2014 Refill [facility] Primar y Care [address] [phone] Social History Date Tobacco Use Types Packs/Day [...]
--- OUTSIDE RECORDS SUMMARY | 2020-03-24 14:14 | XMS REPORT | Encounter Summary ---
Author Author [facility] Organization [facility] Address Unknown Phone Unavailable Care Team Providers Care Engineering Director Name Role Phone Shahram Mccallum MD PCP Unavailable Reason for Visit * Reason Comments Medication Refill Encounter Details Care Team Description Date Type Department Shahram Mccallum MD NO ADDRESS ON FILE 10/05/2014 Refill [facility] Primar y Care [address] [phone] Social History Date Tobacco Use Types Packs/Day [...]
--- OUTSIDE RECORDS SUMMARY | 2020-03-24 14:14 | XMS REPORT | Encounter Summary ---
Author Author [facility] Organization [facility] Address Unknown Phone Unavailable Care Team Providers Care Veneer Sorter Name Role Phone Shahram Mccallum MD PCP Unavailable Encounter Details Care Team Description Date Type Department Shahram Mccallum MD NO ADDRESS ON FILE 11/22/2014 Abstract [facility] Primar y Care [place] [address] [place] [phone] Social History Date Tobacco Use Types Packs/Day [...]
--- OUTSIDE RECORDS SUMMARY | 2020-03-24 14:14 | XMS REPORT | Encounter Summary ---
Author Author [facility] Organization [facility] Address Unknown Phone Unavailable Care Team Providers Care Press Bucker Name Role Phone Shahram Mccallum MD PCP Unavailable Reason for Visit * Reason Comments Medication Refill Encounter Details Care Team Description Date Type Department Shahram Mccallum MD NO ADDRESS ON FILE 11/05/2014 Refill [facility] Primar y Care [address] [phone] Social History Date Tobacco Use Types Packs/Day [...]
--- OUTSIDE RECORDS SUMMARY | 2020-03-24 14:14 | XMS REPORT | Encounter Summary ---
Author Author [facility] Organization [facility] Address Unknown Phone Unavailable Care Team Providers Care Animal Care Attendant Name Role Phone Shahram Mccallum MD PCP Unavailable Reason for Visit * Reason Comments Medication Refill Encounter Details Care Team Description Date Type Department Neyda Redmond MD [address] [place] [phone] 10/26/2014 Refill [facility] Primar y Care [place] [address] [place] [address] Social History Date Tobacco Use [...]
--- OUTSIDE RECORDS SUMMARY | 2020-03-24 14:14 | XMS REPORT | Encounter Summary ---
Author Author [facility] Organization [facility] Address Unknown Phone Unavailable Care Team Providers Care Mail Technician Name Role Phone Shahram Mccallum MD PCP Unavailable Reason for Visit * Reason Comments Medication Refill Encounter Details Care Team Description Date Type Department Shahram Mccallum MD NO ADDRESS ON FILE Depression (Primary Dx) 12/06/2014 Refill [facility] Primar Care [place] [address] [place] [phone] Social History Date Tobacco Use Types Packs/Day [...] as of this encounter Visit Diagnoses Diagnosis Depression - Primary Depressive disorder, not elsewhere clas sified documented in this encounter
--- OUTSIDE RECORDS SUMMARY | 2020-03-24 14:14 | XMS REPORT | Encounter Summary ---
Author Author [facility] Organization [facility] Address Unknown Phone Unavailable Care Team Providers Care Bordereau Clerk Name Role Phone Shahram Mccallum MD PCP Unavailable Reason for Visit * Reason Comments Results elevated liver enzymes Encounter Details Care Team Description Date Type Department Shahram Mccallum MD NO ADDRESS ON FILE LFT elevation (Primary Dx); Hyperlipidemia; Diabetes mellitus; Need for prophylactic vaccination and inoculation against influenza 10/25/2014 Office Visit [facility] Primar [facility] [address] [place] [phone] Social History Date Tobacco Use [...] Signs Reading Time Taken Comments Vital Sign 112/68 10/25/2014 11:40 AM PELTS SKINNER Blood Pressure - - Pulse - - Temperature - - Respiratory Rate - - Oxygen Saturation - - Inhaled Oxygen Concentration 83.9 kg (185 lb) 10/25/2014 11:40 AM PELTS SKINNER Weight 154.9 cm (5' 1") 10/25/2014 11:40 AM PELTS SKINNER Height 34.96 10/25/2014 11:40 AM PELTS SKINNER Body Mass Index documented in this encounter Progress Notes * Shahram cMcallum MD - 10/25/2014 12:18 PM PELTS SKINNER Subjective: Oliverio Dalton is a 64 y.o. [...] without mention of obstruction or gangrene 553.1 Abdominal pain, suprapubic 789.09 Bradycardia 427.89 Back pain 724.5 LFT elevation 790.6 Osteoarthritis of right knee 715.96 Carpal tunnel syndrome 354.0 Diabetes mellitus 250.00 CAD (coronary artery disease) 414.00 COPD (chronic obstructive pulmonary disease) 496 Seizure disorder 345.90 Depression 311 Suicidal behavior 300.9 Status post colonoscopy V45.89 Current Outpatient Prescriptions on File Prior to Visit Medication Sig Dispense Refill NITROSTAT 0.4 mg Tablet, Sublingual Place 1 Tab under tongue every 5 minutes as needed for Chest Pain. 25 Tab PRN pioglitazone (ACTOS) 30 mg tablet Take 1 Tab by mouth daily. 90 Tab 3 traZODone (DESYREL) 50 mg tablet Take 1 Tab by mouth daily at bedtime. 30 T ab 5 prochlorperazine maleate (COMPAZINE) 10 mg tablet Take 10 mg by mouth every 6 hours as needed. FLUoxetine (PROZAC) 20 mg capsule Take 2 Caps by mouth daily. 60 Cap 5 zolpidem (AMBIEN) 10 mg tablet TAKE 1 TABLET BY MOUTH AT BEDTIME NEEDED. 30 Tab 0 fenofibrate nanocrystallized (TRICOR) 145 mg tablet Take 1 Tab by mouth jono y with supper. 30 Tab 5 oxyCODONE-acetaminophen (PERCOCET) 5-325 mg tablet Take 1-2 Tabs by mouth ev len 6 hours as needed for Pain, Moderate. 50 Tab 0 LORazepam (ATIVAN) 1 mg tablet TAKE ONE TABLET BY MOUTH 2 TIMES A DAY. 60 T ab 3 loratadine (CLARITIN) 10 mg tablet Take 1 Tab by mouth daily. 30 Tab 11 isosorbide mononitrate (IMDUR) 60 mg Extended Release 24 hour tablet TAKE ON E TABLET BY MOUTH 2 TIMES A DAY 60 Tab 11 phenytoin sodium extended release (DILANTIN) 100 mg capsule TAKE 2 CAPSULES BY MOUTH EVERY MORNING AND ONE CAPSULE AT BEDTIME. 90 Cap 3 clopidogrel (PLAVIX) 75 mg Tablet Take 1 Tab by mouth daily. 30 Tab 5 bethanechol (URECHOLINE) 25 mg tablet TAKE ONE TABLET BY MOUTH FOUR TIMES A DAY 120 Tab 5 ZETIA 10 mg tablet Take 1 Tab by mouth daily at bedtime. 30 Tab 5 tamsulosin (FLOMAX) 0.4 mg Extended Release 24 hour capsule TAKE ONE CAPSULE BY MOUTH EVERY DAY 30 MINUTES AFTER SUPPER 30 Cap 5 OLANZapine (ZYPREXA) 2.5 mg tablet Take 1 Tab by mouth daily at bedtime. 30 Tab 5 NEXIUM 40 mg Capsule, Delayed Release(E.C.) Take 1 Cap by mouth daily before breakfast. 30 Cap 6 fluticasone (FLONASE) 50 mcg/spray [place], Suspension Administer 2 Sprays in each nostril [...] Take by mouth daily. 2 tablets daily ibuprofen (MOTRIN) 800 mg Oral tablet Take 1 Tab by mouth 3 times daily with meals. 90 Tab 3 FLUoxetine (PROZAC) 20 mg Oral tablet Take by mouth daily. take 2 capsules daily blood sugar diagnostic (ACCU-CHEK ACTIVE TEST) [...] Drop in both eyes 2 times daily. simvastatin (ZOCOR) 40 mg tablet TAKE ONE TABLET (40MG) BY MOUTH EVERY DAY I N THE EVENING 90 Tab 1 HYDROcodone-acetaminophen (NORCO) 5-325 mg Oral tablet Take 1 Tab by mouth e very 4 hours as needed for Pain. may take one or two tabs every 4 hours as neede d for pain. ALBUTEROL IN Take 2 Puffs by inhalation every 6 hours as needed No current facility-administered medications on file prior to visit. Lab Results Component Value Date/Time CREAT 0.66* 10/25/2014 9:56 AM BUN 11 10/25/2014 9:56 AM NA 135 10/25/2014 9:56 AM K 4.1 10/25/2014 9:56 AM CL 103 10/25/2014 9:56 AM CO2 26 10/25/2014 9:56 AM GFR >60 10/25/2014 9:56 AM Lab Results Component Value Date/Time ALT 35 10/25/2014 9:56 AM AST 20 10/25/2014 9:56 AM ALKPHOS 109 10/25/2014 9:56 AM BILITOTAL 0.2 10/25/2014 9:56 AM HPI: Mr. Dalton complains of the following (by systems): Arthritis symptoms: diffuse arthralgias Diabetes Type II complaints: patient is asymptomatic, is compliant with meds a nd diet; glucose monitoring is usually in normal ranges Hypertension related symtoms/issues: taking medications as instructed, no side effects of medications, no chest pain on exertion, no dyspnea on exertion, no ed lian No complications related to lipids or lipid therapy. Off statin related to LFt increase. Review of Systems: ROS chronically has all of the following: Headache Dizziness Chest pain Shortness of breath Bowel changes Bladder changes Pain in muscle or joints Exam/Objective: Normal Exam for Routine Visits: \\Blood pressure 112/68, height 5' 1" (1.549 m), weight 185 lb (83.915 kg). General appearance:stable and sl more healthy appearing, active, alert, cooperat humberto, social, normally nourished, and in no acute distress Lungs: breath sounds equal, clear to auscultation bilaterally, no retractions, n o stridor, normal respiratory effort Heart: regular rate and rhythm, S1, S2 normal, no murmur, click, rub, gallop, or abnormal sounds. Abdomen: soft, non-tender. Bowel sounds normal. No masses, no organomegaly. Ac tive bowel sounds. Extremities: symmetrical non edematous. Assessment and Plan: ASSESSMENT: Encounter Diagnoses Name Primary? LFT elevation Yes Hyperlipidemia Diabetes mellitus Need for prophylactic vaccination and inoculation against influenza PLAN: Orders Placed This Encounter INFLUENZA VACCINE SPLIT 3+YEARS IM (ADULT) HEPATIC FUNCTION PANEL CMP (4 MONTHS X 1) LIPID PANEL (4 MONTHS X 1) HEMOGLOBIN A1C (4 MONTHS X 1) Re-start statin and jean marie LFT 6 weeks Appropriate medications prescribed (see detailed AVS). Appropriate patient instructions provided (see detailed AVS). Follow-up as I have indicated. Medications and options explained to include common side effects. Understanding of medications, course, diagnosis, and expectations were expressed by patient/g uardian. S SKINNER documented in this encounter Plan of Treatment Not on filedocumented as of this encounter Results * HEMOGLOBIN A1C (02/25/2015 8:38 AM CDT) HEMOGLOBIN A1C 6.4 (H) 0.0 - 6.0 % [facility] EST. AVG 137 mg/dL [facility] GLUCOSE, A1C LABORATORY SERVICES - [facility] Specimen Blood Performing Organization Address [facility] one Number [facility] CLIA# [id number] [place], [place] [address] - [facility] [address] * LIPID PANEL (02/25/2015 8:38 AM CDT) CHOLESTEROL 148 mg/dL [facility] TRIGLYCERIDE 117 mg/dL [facility] HDL 67 mg/dL [facility] LDL CALCULATED 58 <=130 mg/dL [facility] NON-HDL 81 mg/dL [facility] CHOLESTEROL [facility]ATORY [facility] Specimen Blood Narrative Performed At TOTAL CHOLESTEROL mg/dL [facility] Desirable <200 SERVICES - [facility] Borderline high 200-239 [place] High [...] Based on AHA/NCEP Guidelines Performing Organization Address [facility] Ph one Number [facility] CLIA# [id number] [place], [place] [address] [place] [address] [facility] * COMPREHENSIVE METABOLIC PANEL (02/25/2015 8:38 AM CDT) [facility] SODIUM 137 134 - 145 mmol/L [facility] [place] POTASSIUM 4.3 3.5 - 5.1 mmol/L [facility] [place] CHLORIDE 102 98 - 107 mmol/L [facility] [place] CO2 28 22 - 31 mmol/L [facility] [place] CALCIUM 8.6 8.5 - 10.1 mg/dL [facility] [place] BUN 14 7 - 20 mg/dL [facility] [place] CREATININE 0.78 0.67 - 1.17 mg/dL [facility] [place] GLUCOSE 95 70 - 100 mg/dL [facility] [place] TOTAL PROTEIN 7.1 6.4 - 8.2 g/dL [facility] [place] ALBUMIN 3.7 3.4 - 5.0 g/dL [facility] [place] BILIRUBIN TOTAL 0.2 <=1.1 mg/dL [facility] [place] ALKALINE 77 40 - 136 U/L [facility] PHOSPHATASE [facility] [place] AST 14 10 - 40 U/L [facility] [place] ALT 17 14 - 63 U/L [facility] [place] GFR >60 >=60 mL/min/1.73 sq [facility] Comment: meter LABORATORY eGFR has not been validated SERVICES [facility] for use in the elderly (> [...] result. GFR, >60 >=60 mL/min/1.73 sq [facility] [place] meter [facility] [place] ANION GAP 7 4 - 20 mmol/L [facility] [place] Specimen Blood Performing Organization Address City/State/Zipcode Ph one Number [facility] CLIA# [id number] [place] [address] - [address] * HEPATIC FUNCTION PANEL (12/13/2014 11:28 AM PELTS SKINNER) TOTAL PROTEIN 6.9 6.4 - 8.2 g/dL [facility] [place] ALBUMIN 3.7 3.4 - 5.0 g/dL [facility] [place] BILIRUBIN TOTAL 0.4 <=1.1 mg/dL [facility] [place] BILIRUBIN 0.1 <=0.3 mg/dL [facility] DIRECT [facility] - [place] ALKALINE 94 40 - 136 U/L [facility] PHOSPHATASE [facility]ORY [facility] - [place] AST 16 10 - 40 U/L [facility] [place] ALT 30 25 - 70 U/L [facility] [place] Specimen Blood Performing Organization Address City/State/[facility] Ph one Number [facility] CLIA# [id number] [place] [address] [address] LABORATORY SERVICES CLIA# [id number] [place] [address] - [address] documented in this encounter Visit Diagnoses Diagnosis LFT elevation - Primary Other abnormal blood chemistry Hyperlipidemia Other and unspecified hyperlipidemia Diabetes mellitus Type II or unspecified type diabetes me llitus without mention of complication, not stated as uncontrolled Need for prophylactic vaccination and i noculation against influenza documented in this encounter
--- OUTSIDE RECORDS SUMMARY | 2020-03-24 14:14 | XMS REPORT | Encounter Summary ---
Author Author [facility] Organization [facility] Address Unknown Phone Unavailable Care Team Providers Care Crane Ladle Person Name Role Phone Shahram Mccallum MD PCP Unavailable Reason for Visit * Reason Comments Medication Refill Encounter Details Care Team Description Date Type Department Shahram Mccallum MD NO ADDRESS ON FILE 10/17/2014 Refill [facility] Primar y Care [address] [phone] Social History Date Tobacco Use Types Packs/Day [...]
--- OUTSIDE RECORDS SUMMARY | 2020-03-24 14:14 | XMS REPORT | Encounter Summary ---
Author Author [facility] Organization [facility] Address Unknown Phone Unavailable Care Team Providers Care Transmission Operator Name Role Phone Shahram Mccallum MD PCP Unavailable Reason for Visit * Reason Comments Follow Up 3 month with lab results Encounter Details Care Team Description Date Type Department Shahram Mccallum MD NO ADDRESS ON FILE Diabetes mellitus (Primary Dx); COPD (chronic obstructive pulmonary disease); Unspecified essential hypertension; Hyperlipidemia; LFT elevation; CAD (coronary artery disease); Depression 10/11/2014 Office Visit [facility] Primar [address] [phone] Social History Date Tobacco Use Types Packs/Day [...] Signs Reading Time Taken Comments Vital Sign 110/50 10/11/2014 9:45 AM ELECTRONIC MASKING SYSTEM OPERATOR Blood Pressure 74 10/11/2014 9:45 AM ELECTRONIC MASKING SYSTEM OPERATOR Pulse - - Temperature - - Respiratory Rate - - Oxygen Saturation - - Inhaled Oxygen Concentration 83.9 kg (185 lb) 10/11/2014 9:45 AM ELECTRONIC MASKING SYSTEM OPERATOR Weight 154.9 cm (5' 1") 10/11/2014 9:45 AM ELECTRONIC MASKING SYSTEM OPERATOR Height 34.96 10/11/2014 9:45 AM ELECTRONIC MASKING SYSTEM OPERATOR Body Mass Index documented in this encounter Progress Notes * Shahram Mccallum MD - 10/11/2014 10:17 AM ELECTRONIC MASKING SYSTEM OPERATOR Subjective: Oliverio Dalton is a 64 y.o. [...] Prior to Visit Medication Sig Dispense Refill ondansetron (ZOFRAN ODT) 4 mg Tablet, Rapid Dissolve Place 1 Tab under tongu e every 8 hours as needed for Nausea/Emesis. 5 Tab 0 prochlorperazine maleate (COMPAZINE) 10 mg [...] TIMES A DAY. 60 T ab 3 simvastatin (ZOCOR) 40 [...] 30 Cap 6 fluticasone (FLONASE) 50 mcg/spray [place], Suspension Administer 2 Sprays in each nostril daily. 16 Gram 5 ramipril (ALTACE) 10 mg capsule Take 1 Cap by mouth daily. 90 Cap 1 fluticasone (FLOVENT HFA) 110 mcg/actuation Aerosol Take 1 Puff by inhalatio n 2 times daily. 12 Gram 5 albuterol (PROAIR HFA) 90 mcg/Actuation HFA Aerosol Inhaler HFA inhaler Take 2 Puffs by inhalation every 4 hours as needed for Shortness of Breath. 8.5 Gram 5 insulin glargine (LANTUS) 100 unit/mL Solution 40 units at bedtime 10 mL 1 1 HYDROcodone-acetaminophen (NORCO) 5-325 mg Oral tablet Take 1 Tab by mouth e very 4 hours as needed for Pain. may take one or two tabs every 4 hours as neede d for pain. ACTOS 30 mg Oral tablet Take 1 Tab by mouth daily. 30 Tab 11 NITROSTAT 0.[address] 1 Tab under tongue every 5 minutes as needed for Chest Pain. 25 Tab PRN naproxen sodium 220 mg Oral Cap Take [...] 1 Tab by mouth daily with lunch. AEROBID IN Take 2 Puffs by inhalation 3 times daily. ALBUTEROL IN Take 2 Puffs by inhalation every 6 hours as needed BETIMOL 0.5 % OP Drop Administer 1 Drop in both eyes 2 times daily. TYLENOL 325 mg Oral Tab Take 1-2 Tabs by mouth every 4 hours as needed for P ain. No current facility-administered medications on file prior to visit. Lab Results Component Value Date/Time HGBA1C 6.6* 10/11/2014 8:53 AM HGBA1C 6.6* 07/12/2014 11:43 AM HGBA1C 7.6* 02/12/2014 8:27 AM MALBUR 32.2 08/15/2012 8:43 AM LDLCALC 43 10/11/2014 8:53 AM LDLDIRECT 125 12/10/2011 9:05 AM CREAT 0.81 10/11/2014 8:53 AM Lab Results Component Value Date/Time CHOLTOT 125 10/11/2014 8:53 AM CHOLTOT 176 02/12/2014 8:27 AM CHOLTOT 210 10/12/2013 9:00 AM HDL 59 10/11/2014 8:53 AM HDL 49 02/12/2014 8:27 AM HDL 38 10/12/2013 9:00 AM LDLCALC 43 10/11/2014 8:53 AM LDLCALC 85 02/12/2014 8:27 AM LDLCALC Comment: Calculated LDL is not accurate when the Triglyceride value exc eeds 400. 10/12/2013 9:00 AM LDLDIRECT 125 12/10/2011 9:05 AM LDLDIRECT 123 08/04/2011 9:05 AM LDLDIRECT 125 04/02/2011 8:46 AM TRIGLYCERIDE 114 10/11/2014 8:53 AM TRIGLYCERIDE 212 02/12/2014 8:27 AM TRIGLYCERIDE 432 10/12/2013 9:00 AM ALT 194* 10/11/2014 8:53 AM AST 284* 10/11/2014 8:53 AM Lab Results Component Value Date/Time CREAT 0.81 10/11/2014 8:53 AM BUN 12 10/11/2014 8:53 AM NA 135 10/11/2014 8:53 AM K 4.0 10/11/2014 8:53 AM CL 100 10/11/2014 8:53 AM CO2 28 10/11/2014 8:53 AM GFR >60 10/11/2014 8:53 AM Lab Results Component Value Date/Time ALT 194* 10/11/2014 8:53 AM AST 284* 10/11/2014 8:53 AM ALKPHOS 278* 10/11/2014 8:53 AM BILITOTAL 0.4 10/11/2014 8:53 AM HPI: Mr. Dalton complains of the following (by systems): Arthritis symptoms: diffuse arthralgias Chest Pain symptoms: none Depression like symptoms: depressed mood, difficulty concentrating, fatigue, hop elessness, insomnia and recently exacerbated. Denies any suicidal ideation. Sa ys he learned a lot during [facility]. Diabetes Type II complaints: medication compliance: compliant [...] of Systems: ROS Denies all of the following: Headache Dizziness Chest pain Shortness of breath: has copd sxs with recent but now improved sob, cough. Bowel changes: recent diarrhea x 3 days but much better today. Took 1 dose of i modium Bladder changes Pain in muscle or joints Exam/Objective: Normal Exam for Routine Visits: \\Blood pressure 110/50, pulse 74, height 5' 1" ( 1.549 m), weight 185 lb (83.915 kg). General appearance:chronic disability but sl more than usual healthy appearing, active, alert, cooperative, social, normally nourished, and in no acute distress Lungs: breath sounds equal, clear to auscultation bilaterally, no retractions, n o stridor, normal respiratory effort Heart: regular rate and rhythm, S1, S2 normal, no murmur, click, rub, gallop, or abnormal sounds. Abdomen: soft, non- specific sl tender. Bowel sounds normal. No masses, no orga nomegaly. Active bowel sounds. Extremities: symmetrical non edematous. PSYCHE: mild tearful but seems understanding situation. Assessment and Plan: ASSESSMENT: Encounter Diagnoses Name Primary? Diabetes mellitus Yes COPD (chronic obstructive pulmonary disease) Unspecified essential hypertension Hyperlipidemia LFT elevation CAD (coronary artery disease) Depression PLAN: Orders Placed This Encounter CMP traZODone (DESYREL) 50 mg tablet Hold statins and jean marie LFT 2 weeks or sooner if sxs increase Will need w/u if lft not better If lft better will restart statin and again recl lfts Added trazodone but will also cont prozac Appropriate medications prescribed (see detailed AVS). Appropriate patient instructions provided (see detailed AVS). Follow-up as I have indicated. Medications and options explained to include common side effects. Understanding of medications, course, diagnosis, and expectations were expressed by patient/g uardian. TRONIC MASKING SYSTEM OPERATOR documented in this encounter Plan of Treatment Not on filedocumented as of this encounter Results * COMPREHENSIVE METABOLIC PANEL (10/25/2014 9:56 AM ELECTRONIC MASKING SYSTEM OPERATOR) SODIUM 135 134 - 145 mmol/L [facility] - [facility] POTASSIUM 4.1 3.5 - 5.1 mmol/L [facility] Comment: LABORATORY Specimen hemolyzed, results SERVICES - [place] may be falsely increased. [facility] CHLORIDE 103 98 - 107 mmol/L [facility] - [facility] F[facility] CO2 26 22 - 31 mmol/L [facility] CALCIUM 9.2 8.5 - 10.1 mg/dL [facility] - [facility] BUN 11 7 - 20 mg/dL [facility] CREATININE 0.66 (L) 0.67 - 1.17 mg/dL [facility] - [facility] GLUCOSE 132 (H) 70 - 100 mg/dL [facility] - [facility] F[facility] TOTAL PROTEIN 7.2 6.4 - 8.2 g/dL [facility] - [facility] ALBUMIN 3.7 3.4 - 5.0 g/dL [facility] BILIRUBIN TOTAL 0.2 <=1.1 mg/dL [facility] - [facility] ALKALINE 109 40 - 136 U/L [facility] PHOSPHATASE LABORATORY SERVICES - [facility] AST 20 10 - 40 U/L [facility] Comment: LABORATORY Specimen hemolyzed, results SERVICES - [place] may be falsely increased. [facility] ALT 35 25 - 70 U/L [facility] [place] GFR >60 >=60 mL/min/1.73 sq [facility] Comment: meter LABORATORY eGFR has not been validated [facility] for use in the elderly (> [...] >60 >=60 mL/min/1.73 sq [facility] [place] meter LABORATORY SERVICES - [place] ANION GAP 6 4 - 20 mmol/L [facility] [place] Specimen Blood Performing Organization Address City/State/[facility] Ph one Number [facility] CLIA# [id number] [place], [place] [address] [address] LABORATORY SERVICES CLIA# [id number] [place] [address] - [address] documented in this encounter Visit Diagnoses Diagnosis Diabetes mellitus - Primary Type II or unspecified type diabetes me llitus without mention of complication, not stated as uncontrolled COPD (chronic obstructive pulmonary dis ease) Chronic airway obstruction, not elsewhe re classified Unspecified essential hypertension Hyperlipidemia Other and unspecified hyperlipidemia LFT elevation Other abnormal blood chemistry CAD (coronary artery disease) Coronary atherosclerosis of unspecified type of vessel, [place] or graft Depression Depressive disorder, not elsewhere clas sified documented in this encounter
--- OUTSIDE RECORDS SUMMARY | 2020-03-24 14:15 | XMS REPORT | Encounter Summary ---
Author Author [facility] Organization [facility] Address Unknown Phone Unavailable Care Team Providers Care Flanging Roll Operator Name Role Phone Shahram Mccallum MD PCP Unavailable Reason for Visit * Reason Comments Medication Refill Encounter Details Care Team Description Date Type Department Shahram Mccallum MD NO ADDRESS ON FILE 09/07/2014 Refill [facility] Primar y Care [address] [phone] Social History Date Tobacco Use Types Packs/Day [...]
--- OUTSIDE RECORDS SUMMARY | 2020-03-24 14:15 | XMS REPORT | Encounter Summary ---
Author Author [facility] Organization [facility] Address Unknown Phone Unavailable Care Team Providers Care Cnc Mill Operator Name Role Phone Shahram Mccallum MD PCP Unavailable Reason for Visit * Reason Comments Medication Refill Encounter Details Care Team Description Date Type Department Shahram Mccallum MD NO ADDRESS ON FILE 09/22/2014 Refill [facility] Primar y Care [address] [phone] Social History Date Tobacco Use Types Packs/Day [...]
--- OUTSIDE RECORDS SUMMARY | 2020-03-24 14:15 | XMS REPORT | Encounter Summary ---
Author Author [facility] Organization [facility] Address Unknown Phone Unavailable Care Team Providers Care Director Of Clinical Applications Name Role Phone Shahram Mccallum MD PCP Unavailable Reason for Visit * Reason Comments Medication Refill Encounter Details Care Team Description Date Type Department Shahram Mccallum MD NO ADDRESS ON FILE 07/11/2014 Refill [facility] Primar y Care [address] [phone] Social History Date Tobacco Use Types Packs/Day [...]
--- OUTSIDE RECORDS SUMMARY | 2020-03-24 14:15 | XMS REPORT | Encounter Summary ---
Author Author [facility] Organization [facility] Address Unknown Phone Unavailable Care Team Providers Care Municipal Firefighter Name Role Phone Shahram Mccallum MD PCP Unavailable Reason for Visit * Reason Comments Medication Refill Encounter Details Care Team Description Date Type Department Shahram Mccallum MD NO ADDRESS ON FILE 09/10/2014 Refill [facility] Primar y Care [address] [phone] Social History Date Tobacco Use Types Packs/Day [...]
--- OUTSIDE RECORDS SUMMARY | 2020-03-24 14:15 | XMS REPORT | Encounter Summary ---
Author Author [facility] Organization [facility] Address Unknown Phone Unavailable Care Team Providers Care Freelance Photographer Name Role Phone Shahram Mccallum MD PCP Unavailable Reason for Visit * Reason Comments Medication Refill Encounter Details Care Team Description Date Type Department Self, Aries Montelongo MD [address] [place] [address] 06/26/2014 Refill [facility] Prim[facility] [place] [address] [place] [address] Social History Date Tobacco Use [...]
--- OUTSIDE RECORDS SUMMARY | 2020-03-24 14:15 | XMS REPORT | Encounter Summary ---
Author Author [facility] Organization [facility] Address Unknown Phone Unavailable Care Team Providers Care Appraisal Manager Name Role Phone Shahram Mccallum MD PCP Unavailable Reason for Visit * Reason Comments Medication Refill Encounter Details Care Team Description Date Type Department Shahram Mccallum MD NO ADDRESS ON FILE Back pain (Primary Dx) 05/04/2014 Refill [facility] Primar Care [address] [phone] Social History Date Tobacco Use Types Packs/Day Years Used Quit: 03/08/1995 Former Smoker Cigarettes 4 40 Smokeless Tobacco: Never Used Drinks/Week oz/Week Comments Alcohol Use No Sex Assigned at Date Recorded Not on file Industry Job Start Date Occupation Not on file Not on file Not on file Travel End Travel History Travel Start No recent travel history available. documented as of this encounter Plan of Treatment Not on filedocumented as of this encounter Visit Diagnoses Diagnosis Back pain - Primary Backache, unspecified documented in this encounter
--- OUTSIDE RECORDS SUMMARY | 2020-03-24 14:15 | XMS REPORT | Encounter Summary ---
Author Author [facility] Organization [facility] Address Unknown Phone Unavailable Care Team Providers Care Repairer Maintenance Building Name Role Phone Shahram Mccallum MD PCP Unavailable Reason for Visit * Reason Comments Medication Refill Encounter Details Care Team Description Date Type Department Shahram Mccallum MD NO ADDRESS ON FILE 06/11/2014 Refill [facility] Primar y Care [address] [phone] Social History Date Tobacco Use Types Packs/Day [...]
--- OUTSIDE RECORDS SUMMARY | 2020-03-24 14:15 | XMS REPORT | Encounter Summary ---
Author Author [facility] Organization [facility] Address Unknown Phone Unavailable Care Team Providers Care Neurobiologist Name Role Phone Shahram Mccallum MD PCP Unavailable Reason for Visit * Reason Comments Medication Refill Encounter Details Care Team Description Date Type Department Shahram Mccallum MD NO ADDRESS ON FILE 08/17/2014 Refill [facility] Primar y Care [address] [phone] Social History Date Tobacco Use Types Packs/Day [...]
--- OUTSIDE RECORDS SUMMARY | 2020-03-24 14:15 | XMS REPORT | Encounter Summary ---
Author Author [facility] Organization [facility] Address Unknown Phone Unavailable Care Team Providers Care Dining Chair Seat Cushion Trimmer Name Role Phone Shahram Mccallum MD PCP Unavailable Encounter Details Care Team Description Date Type Department Shahram Mccallum MD NO ADDRESS ON FILE Ftsc, Outpt Lab 07/12/2014 [facility] Outpatient Encounter Laboratory [address] [phone] Social History Date Tobacco Use [...] Drop in both eyes 2 times daily. 07/11/2014 12/06/2014 tamsulosin (FLOMAX) 0.4 TAKE ONE 30 Cap 5 mg Extended Release 24 CAPSULE BY hour capsule MOUTH EVERY DAY 30 MINUTES AFTER SUPPER 06/29/2014 08/24/2014 isosorbide mononitrate TAKE ONE 60 Tab 1 (IMDUR) 60 mg Extended TABLET BY Release 24 hour tablet MOUTH 2 TIMES A DAY 06/27/2014 09/14/2014 oxyCODONE-acetaminophen Take 1-2 Tabs 50 Tab 0 (PERCOCET) 5-325 mg by mouth tabletIndications: Back every 6 hours pain as needed for Pain, Moderate. 06/26/2014 12/21/2014 OLANZapine (ZYPREXA) 2.5 Take 1 Tab by 30 Tab 5 mg tablet mouth daily at bedtime. 06/26/2014 01/23/2015 NEXIUM 40 mg Capsule, Take 1 Cap by 30 Cap 6 Delayed Release(E.C.) mouth daily before breakfast. 06/14/2014 10/07/2015 fluticasone (FLONASE) 50 Administer 2 16 Gram 5 mcg/spray [place], Sprays in Suspension each nostril daily. 06/11/2014 10/05/2014 zolpidem (AMBIEN) 10 mg TAKE 1 TABLET 30 Tab 2 tablet BY MOUTH AT BEDTIME NEEDED. 04/14/2014 08/17/2014 phenytoin sodium extended TAKE 2 90 Cap 3 release (DILANTIN) 100 mg CAPSULES BY capsule MOUTH EVERY MORNING AND ONE CAPSULE AT BEDTIME. 04/14/2014 10/05/2014 FLUoxetine (PROZAC) 20 mg Take 2 Caps 60 Cap 5 capsule by mouth daily. 04/11/2014 08/09/2014 bethanechol (URECHOLINE) TAKE ONE 120 Tab 3 25 mg tablet TABLET BY MOUTH FOUR TIMES A DAY 04/11/2014 08/09/2014 clopidogrel (PLAVIX) 75 Take 1 Tab by 30 Tab 3 mg Tablet mouth daily. 03/30/2014 09/22/2014 fenofibrate Take 1 Tab by 30 Tab 5 nanocrystallized (TRICOR) mouth daily 145 mg tablet with supper. 03/12/2014 09/07/2014 simvastatin (ZOCOR) 40 mg TAKE ONE 90 Tab 1 tablet TABLET (40MG) BY MOUTH EVERY DAY IN THE EVENING 03/09/2014 10/26/2014 ramipril (ALTACE) 10 mg Take 1 Cap by 90 Cap 1 capsule mouth daily. 03/07/2014 08/24/2014 loratadine (CLARITIN) 10 Take 1 Tab by 30 Tab 5 mg tablet mouth daily. 01/12/2014 07/13/2014 ZETIA 10 mg tablet Take 1 Tab by 30 Tab 5 mouth daily at bedtime. 11/14/2013 08/16/2015 fluticasone (FLOVENT HFA) Take 1 [...] Date/Time Associated Diag nosis HEMOGLOBIN A1C Stat 07/12/2014 Diabetes mellit us 11:43 AM CDT BASIC METABOLIC PANEL Stat 07/12/2014 Diabetes mellitus 11:43 AM CDT documented in this encounter Results * BASIC METABOLIC PANEL (07/12/2014 11:43 AM CDT) SODIUM 137 134 - 145 mmol/L [facility] POTASSIUM 4.2 3.5 - 5.1 mmol/L [facility] CHLORIDE 103 98 - 107 mmol/L [facility] CO2 31 22 - 31 mmol/L [facility] CALCIUM 9.4 8.5 - 10.1 mg/dL [facility] [place] BUN 16 7 - 20 mg/dL [facility] [place] CREATININE 0.83 0.67 - 1.17 mg/dL [facility] [place] GLUCOSE 138 (H) 70 - 100 mg/dL [facility] [place] GFR >60 >=60 mL/min/1.73 sq [facility] Comment: meter LABORATORY eGFR has not been validated [facility] for use in the elderly [...] GFR, >60 >=60 mL/min/1.73 sq [facility] meter [facility] [place] ANION GAP 3 (L) 4 - 20 [facility] [place] Specimen Blood Performing Organization Address [facility] Ph one Number [facility] CLIA# [id number] [place] [address] [facility] CLIA# [id number] [place] [address] * HEMOGLOBIN A1C (07/12/2014 11:43 AM CDT) HEMOGLOBIN A1C 6.6 (H) 0.0 - 6.0 % [facility] [place] EST. AVG 143 mg/dL [facility] GLUCOSE, A1C [facility] [place] Specimen Blood Performing Organization Address [facility] Ph one Number [facility] CLIA# [id number] [place] [address] [facility] CLIA# [id number] [place] [address] documented in this encounter Visit Diagnoses Diagnosis Diabetes mellitus Type II or unspecified type diabetes me llitus without mention of complication, not stated as uncontrolled documented in this encounter
--- OUTSIDE RECORDS SUMMARY | 2020-03-24 14:15 | XMS REPORT | Encounter Summary ---
Author Author [facility] Organization [facility] Address Unknown Phone Unavailable Care Team Providers Care Fixed Income Manager Name Role Phone Shahram Mccallum MD PCP Unavailable Reason for Visit * Reason Comments Medication Refill Encounter Details Care Team Description Date Type Department Shahram Mccallum MD NO ADDRESS ON FILE 07/13/2014 Refill [facility] Primar y Care [address] [phone] Social History Date Tobacco Use Types Packs/Day [...]
--- OUTSIDE RECORDS SUMMARY | 2020-03-24 14:15 | XMS REPORT | Encounter Summary ---
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 Role Phone Shahram Mccallum MD PCP Unavailable Reason for Visit * Reason Comments Rib Pain fell and broke a rib and wa s to come back and didn't but still bothering him Encounter Details Care Team Description Date Type Department Shahram Mccallum MD NO ADDRESS ON FILE Rib pain on left side (Primary Dx); Diabetes mellitus; Hyperlipidemia 07/12/2014 Office Visit [facility] Primar y Care [address] [phone] Social History Date Tobacco Use Types Packs/Day [...] Signs Reading Time Taken Comments Vital Sign 128/60 07/12/2014 10:55 AM CDT Blood Pressure - - Pulse - - Temperature - - Respiratory Rate - - Oxygen Saturation - - Inhaled Oxygen Concentration 90.7 kg (200 lb) 07/12/2014 10:55 AM CDT Weight 154.9 cm (5' 1") 07/12/2014 10:55 AM CDT Height 37.79 07/12/2014 10:55 AM CDT Body Mass Index documented in this encounter Progress Notes * Shahram Mccallum MD - 07/12/2014 7:49 PM CDT Subjective: Oliverio Dalton is a 63 y.o. male. Patient Active Problem List Diagnosis [...] Prior to Visit Medication Sig Dispense Refill tamsulosin (FLOMAX) 0.4 mg Extended Release 24 hour capsule TAKE ONE CAPSULE BY MOUTH EVERY DAY 30 MINUTES AFTER SUPPER 30 Cap 5 LORazepam (ATIVAN) 1 mg tablet Take 1 Tab by mouth 2 times daily. 60 Tab 0 isosorbide mononitrate (IMDUR) 60 mg Extended Release 24 hour tablet TAKE ON E TABLET BY MOUTH 2 TIMES A DAY 60 Tab 1 oxyCODONE-acetaminophen (PERCOCET) 5-325 mg tablet Take 1-2 Tabs by mouth ev len 6 hours as needed for Pain, Moderate. 50 Tab 0 OLANZapine (ZYPREXA) 2.5 mg tablet Take 1 Tab by mouth daily at bedtime. 30 Tab 5 NEXIUM 40 mg Capsule, Delayed Release(E.C.) Take 1 Cap by mouth daily before breakfast. 30 Cap 6 fluticasone (FLONASE) 50 mcg/spray [place], Suspension Administer 2 Sprays in each nostril daily. 16 Gram 5 zolpidem (AMBIEN) 10 mg tablet TAKE 1 TABLET BY MOUTH AT BEDTIME NEEDED. 30 Tab 2 phenytoin sodium extended release (DILANTIN) 100 mg capsule TAKE 2 CAPSULES BY MOUTH EVERY MORNING AND ONE CAPSULE AT BEDTIME. 90 Cap 3 FLUoxetine (PROZAC) 20 mg capsule Take 2 Caps by mouth daily. 60 Cap 5 LORazepam (ATIVAN) 1 mg tablet TAKE ONE TABLET BY MOUTH 2 TIMES A DAY. 60 T ab 2 bethanechol (URECHOLINE) 25 mg tablet TAKE ONE TABLET BY MOUTH FOUR TIMES A DAY 120 Tab 3 clopidogrel (PLAVIX) 75 mg Tablet Take 1 Tab by mouth daily. 30 Tab 3 fenofibrate nanocrystallized (TRICOR) 145 mg tablet Take 1 Tab by mouth jono y with supper. 30 Tab 5 simvastatin (ZOCOR) 40 mg tablet TAKE ONE TABLET (40MG) BY MOUTH EVERY DAY I N THE EVENING 90 Tab 1 ramipril (ALTACE) 10 mg capsule Take 1 Cap by mouth daily. 90 Cap 1 loratadine (CLARITIN) 10 mg tablet Take 1 Tab by mouth daily. 30 Tab 5 ZETIA 10 mg tablet Take 1 Tab by mouth daily at bedtime. 30 Tab 5 fluticasone (FLOVENT HFA) 110 mcg/actuation Aerosol [...] Lab Results Component Value Date/Time HGBA1C 6.6* 07/12/2014 11:43 AM HGBA1C 7.6* 02/12/2014 8:27 AM HGBA1C 8.0* 10/12/2013 9:00 AM MALBUR 32.2 08/15/2012 8:43 AM LDLCALC 85 02/12/2014 8:27 AM LDLDIRECT 125 12/10/2011 9:05 AM CREAT 0.83 07/12/2014 11:43 AM Lab Results Component Value Date/Time CHOLTOT 176 02/12/2014 8:27 AM CHOLTOT 210 10/12/2013 9:00 AM CHOLTOT 137* 01/02/2013 9:50 AM HDL 49 02/12/2014 8:27 AM HDL 38 10/12/2013 9:00 AM HDL 48 01/02/2013 9:50 AM LDLCALC 85 02/12/2014 8:27 AM LDLCALC Comment: Calculated LDL is not accurate when the Triglyceride value exc eeds 400. 10/12/2013 9:00 AM LDLCALC 70 01/02/2013 9:50 AM LDLDIRECT 125 12/10/2011 9:05 AM LDLDIRECT 123 08/04/2011 9:05 AM LDLDIRECT 125 04/02/2011 8:46 AM TRIGLYCERIDE 212 02/12/2014 8:27 AM TRIGLYCERIDE 432 10/12/2013 9:00 AM TRIGLYCERIDE 95 01/02/2013 9:50 AM ALT 34 02/12/2014 8:27 AM AST 14 02/12/2014 8:27 AM Lab Results Component Value Date/Time CREAT 0.83 07/12/2014 11:43 AM BUN 16 07/12/2014 11:43 AM NA 137 07/12/2014 11:43 AM K 4.2 07/12/2014 11:43 AM CL 103 07/12/2014 11:43 AM CO2 31 07/12/2014 11:43 AM GFR >60 07/12/2014 11:43 AM Lab Results Component Value Date/Time ALT 34 02/12/2014 8:27 AM AST 14 02/12/2014 8:27 AM ALKPHOS 116 02/12/2014 8:27 AM BILITOTAL 0.3 02/12/2014 8:27 AM HPI: Mr. Dalton complains of the following (by systems): Arthritis symptoms: diffuse arthralgias and barbara cont to have pain L upper lat, p ost ribs. 2 week hx of having fallen and injured. Worse with motion and cough but overall better. Chest Pain symptoms: no cardiac pain. Diabetes Type II complaints: patient is asymptomatic, is compliant with meds a nd diet; glucose monitoring is usually in normal ranges No complications related to lipids or lipid therapy. Review of Systems: ROS Denies all of the following: Headache Dizziness Chest pain Shortness of breath Bowel changes Bladder changes Pain in muscle or joints Exam/Objective: Normal Exam for Routine Visits: \\Blood pressure 128/60, height 5' 1" (1.549 m), weight 200 lb (90.719 kg). General appearance:stable overall healthy appearing, active, alert, cooperative, social, normally nourished, and in no acute distress Lungs: breath sounds equal, clear to auscultation bilaterally, no retractions, n o stridor, normal respiratory effort Heart: regular rate and rhythm, S1, S2 normal, no murmur, click, rub, gallop, or abnormal sounds. Abdomen: soft, non-tender. Bowel sounds normal. No masses, no organomegaly. Ac tive bowel sounds. Extremities: symmetrical non edematous. RIBS: tender L upper ant / lat ribs. Assessment and Plan: ASSESSMENT: Encounter Diagnoses Name Primary? Rib pain on left side Yes Diabetes mellitus Hyperlipidemia PLAN: Orders Placed This Encounter CMP (3 MONTHS X 1) LIPID PANEL (3 MONTHS X 1) HEMOGLOBIN A1C (3 MONTHS X 1) Appropriate medications prescribed (see detailed AVS). Appropriate patient instructions provided (see detailed AVS). Follow-up as I have indicated. Medications and options explained to include common side effects. Understanding of medications, course, diagnosis, and expectations were expressed by patient/g uardian. documented in this encounter Plan of Treatment Not on filedocumented as of this encounter Results * HEMOGLOBIN A1C (10/11/2014 8:53 AM RESIDENTIAL SALES REPRESENTATIVE) HEMOGLOBIN A1C 6.6 (H) 0.0 - 6.0 % [facility] [place] EST. AVG 143 mg/dL [facility] GLUCOSE, A1C [facility] - [place] Specimen Blood Performing Organization Address [facility] Ph one Number [facility] CLIA# [id number] [place] [address] [address] LABORATORY SERVICES CLIA# [id number] [place] [address] - [address] * LIPID PANEL (10/11/2014 8:53 AM RESIDENTIAL SALES REPRESENTATIVE) CHOLESTEROL 125 mg/dL [facility] [place] TRIGLYCERIDE 114 mg/dL [facility] [place] HDL 59 mg/dL [facility] [place] LDL CALCULATED 43 <=130 mg/dL [facility] [place] NON-HDL 66 mg/dL [facility] CHOLESTEROL [facility] - [place] Specimen Blood Narrative Performed At TOTAL CHOLESTEROL mg/dL [facility] LABORATORY Desirable <200 SERVICES - [facility] Borderline high 200-239 [place] High >=240 [...] Based on AHA/NCEP Guidelines Performing Organization Address [facility] Ph one Number [facility] CLIA# [id number] [facility] [place] [address] [address] LABORATORY SERVICES CLIA# [id number] [place] [address] - [address] * COMPREHENSIVE METABOLIC PANEL (10/11/2014 8:53 AM RESIDENTIAL SALES REPRESENTATIVE) SODIUM 135 134 - 145 mmol/L [facility] [place] POTASSIUM 4.0 3.5 - 5.1 mmol/L [facility] [place] CHLORIDE 100 98 - 107 mmol/L [facility] [place] CO2 28 22 - 31 mmol/L [facility] [place] CALCIUM 8.4 (L) 8.5 - 10.1 mg/dL [facility] [place] BUN 12 7 - 20 mg/dL [facility] - [facility] [place] CREATININE 0.81 0.67 - 1.17 mg/dL [facility] - [facility] [place] GLUCOSE 158 (H) 70 - 100 mg/dL [facility] [place] TOTAL PROTEIN 7.0 6.4 - 8.2 g/dL [facility] [place] ALBUMIN 3.7 3.4 - 5.0 g/dL [facility] [place] BILIRUBIN TOTAL 0.4 <=1.1 mg/dL [facility] [place] ALKALINE 278 (H) 40 - 136 U/L [facility] PHOSPHATASE [facility] [place] AST 284 (H) 10 - 40 U/L [facility] [place] ALT 194 (H) 25 - 70 U/L [facility] - [facility] [place] GFR >60 >=60 mL/min/1.73 sq [facility] Comment: meter LABORATORY eGFR has not been validated [facility] for use in the elderly (> [...] result. GFR, >60 >=60 mL/min/1.73 sq [facility] meter [facility] [place] ANION GAP 7 4 - 20 mmol/L [facility] - [facility] [place] Specimen Blood Performing Organization Address City/State/Zipcode Ph one Number [facility] CLIA# [id number] [place] [address] [place] [address] LABORATORY SERVICES CLIA# [id number] [place] [address] - [address] documented in this encounter Visit Diagnoses Diagnosis Rib pain on left side - Primary Chest pain, unspecified Diabetes mellitus Type II or unspecified type diabetes me llitus without mention of complication, not stated as uncontrolled Hyperlipidemia Other and unspecified hyperlipidemia documented in this encounter
--- OUTSIDE RECORDS SUMMARY | 2020-03-24 14:15 | XMS REPORT | Encounter Summary ---
Author Author [facility] Organization [facility] Address Unknown Phone Unavailable Care Team Providers Care Pharmaceutical Sales Name Role Phone Shahram Mccallum MD PCP Unavailable Reason for Visit * Reason Comments Rib Pain axilla pain Encounter Details Care Team Description Date Type Department Zeke Abarca MD [address] [place] [address] Chest wall contusion, left, initial enco unter (Primary Dx); Left rib fracture, closed, initial encounter; Back pain 06/27/2014 Emergency [facility] [address] [phone] Social History Date Tobacco Use [...] Signs Reading Time Taken Comments Vital Sign 155/79 06/27/2014 9:25 PM CDT Blood Pressure 90 06/27/2014 9:25 PM CDT Pulse 36.9 C (98.4 F) 06/27/2014 9:25 PM CDT Temperature 26 06/27/2014 9:25 PM CDT Respiratory Rate 97% 06/27/2014 9:25 PM CDT Oxygen Saturation - - Inhaled Oxygen Concentration 90.7 kg (200 lb) 06/27/2014 9:25 PM CDT Weight 167.6 cm (5' 6") 06/27/2014 9:25 PM CDT Height 32.28 06/27/2014 9:25 PM CDT Body Mass Index documented in this encounter Discharge Instructions * Instructions* Zeke Abarca MD - 06/27/2014 Ice and rest to help with the pain. Ice 20 minutes every few hours as needed for pain and swelling Take deep breaths 10-15 every hour to help keep your lungs expanded so you do no t develop pneumonia from not taking deep breaths Check back with Dr. Mccallum about further pain control THANK YOU FOR CHOOSING [facility]! Our goal is to provide you with [...] continually strive to improve our customers experience! * Attachments The following attachments cannot be sent through Care Everywhere.* CHEST CONTUSION (EGYPTIAN) * RIB FRACTURE (EGYPTIAN) * CHEST PAIN: MUSCULOSKELETAL (EGYPTIAN) documented in this encounter Medications at Time of Discharge Start Date End Date Medication Sig Dispensed Refills 08/30/2012 blood sugar diagnostic In the am & 1 Package 0 (ACCU-CHEK ACTIVE TEST) pm prn Misc Strp 12/29/2007 BETIMOL 0.5 % OP Drop Administer 1 0 Drop in both eyes 2 times daily. 06/27/2014 06/28/2014 oxyCODONE-acetaminophen Take 1-2 Tabs 6 Tab 0 (PERCOCET) 5-325 mg by mouth tablet every 4 hours as needed for Pain, Severe for up to 1 day. 06/27/2014 09/14/2014 oxyCODONE-acetaminophen Take 1-2 Tabs 50 [...] 50 Administer 2 16 Gram 5 mcg/spray [place], Sprays in Suspension each nostril daily. 06/11/2014 10/05/2014 zolpidem (AMBIEN) 10 mg TAKE 1 TABLET 30 Tab 2 tablet BY MOUTH AT BEDTIME NEEDED. 05/07/2014 07/11/2014 LORazepam (ATIVAN) 1 mg Take 1 Tab by 7 Tab 0 tablet mouth see administratio n instructions. 1/2 tab mid day for next 14 days only 04/14/2014 08/17/2014 phenytoin sodium extended TAKE 2 [...] 30 Tab 5 mouth daily at bedtime. 01/03/2014 06/29/2014 isosorbide mononitrate SR TAKE ONE 60 Tab 5 24 hour (IMDUR) 60 mg TABLET BY tablet MOUTH 2 TIMES A DAY 11/14/2013 08/16/2015 fluticasone (FLOVENT HFA) Take 1 [...] every 4 hours as needed for pain. 07/11/2013 07/11/2014 FLOMAX 0.4 mg Oral TAKE ONE 30 Cap 11 capsule CAPSULE BY MOUTH EVERY DAY 30 MINUTES AFTER SUPPER 05/09/2013 10/13/2014 ACTOS 30 mg Oral tablet [...] as of this encounter ED Notes * Zeke Abarca MD - 06/27/2014 9:45 PM CDT HISTORY OF PRESENT ILLNESS Oliverio Dalton, a 63 y.o. male presents to the ED with a Chief Complaint of Ri b Pain HPI Comments: He tripped over TV on floor and has left chest wall pain. Rib Pain This is a new problem. The current episode started less than 1 hour ago. The pro blem occurs constantly. The problem has not changed since onset.Associated sympt oms include chest pain (left chest wall pain since fall). Pertinent negatives in clude no abdominal pain, no headaches and no shortness of breath. The symptoms a re aggravated by twisting and coughing. Nothing relieves the symptoms. He has tr ied nothing for the symptoms. The history is provided by the patient. The patient arrived by private vehicle. The patient arrived from home. REVIEW OF SYSTEMS Review of Systems Constitutional: Negative for fever and chills. HENT: Negative for neck pain and neck stiffness. Eyes: Negative for visual disturbance. Respiratory: Negative for shortness of breath. Cardiovascular: Positive for chest pain (left chest wall pain since fall). Gastrointestinal: Negative for abdominal pain. Musculoskeletal: Negative for joint swelling. Skin: Positive for wound (bruise to left chest wall). Neurological: Negative for weakness and headaches. Psychiatric/Behavioral: The patient is nervous/anxious. PAST MEDICAL HISTORY REVIEWED MEDICAL Patient has [...] is mother and sister; Healthy in his daughters and sons; Heart Disease in his si ster and son; Lung Cancer in his brother; Other in his father, mother, and siste r; Respiratory Disease in his mother and sister; and Seizures in his brother. SOCIAL reports that [...] Piperacillin-tazobactam; Terazosin; and Flores ium HOME MEDICATIONS Discharge Medication List as of 06/27/2014 10:47 PM CONTINUE these medications which have CHANGED Details !! oxyCODONE-acetaminophen (PERCOCET) 5-325 mg tablet Take 1-2 Tabs by mouth ranulfo ry 6 hours as needed for Pain, Moderate., Disp-50 Tab, R-0 !! oxyCODONE-acetaminophen (PERCOCET) 5-325 mg tablet Take 1-2 Tabs by mouth ranulfo ry 4 hours as needed for Pain, Severe for up to 1 day., Disp-6 Tab, R-None !! - Potential duplicate medications found. Please discuss with provider. CONTINUE these medications which have NOT CHANGED Details OLANZapine (ZYPREXA) 2.5 mg tablet Take 1 Tab by mouth daily at bedtime., Disp-3 0 Tab, R-5 NEXIUM 40 mg Capsule, Delayed Release(E.C.) Take 1 Cap by mouth daily before latosha akfast., Disp-30 Cap, R-6 fluticasone (FLONASE) 50 mcg/spray [place], Suspension Administer 2 Sprays in each nostril daily., Disp-16 Gram, R-5 zolpidem (AMBIEN) 10 mg tablet TAKE 1 TABLET BY MOUTH AT BEDTIME NEEDED., Dis p-30 Tab, R-2 phenytoin sodium extended release (DILANTIN) 100 mg capsule TAKE 2 CAPSULES BY M OUTH EVERY MORNING AND ONE CAPSULE AT BEDTIME., Disp-90 Cap, R-3 FLUoxetine (PROZAC) 20 mg capsule Take 2 Caps by mouth daily., Disp-60 Cap, R-5 !! LORazepam (ATIVAN) 1 mg tablet TAKE ONE TABLET BY MOUTH 2 TIMES A DAY., Disp- 60 Tab, R-2 bethanechol (URECHOLINE) 25 mg tablet TAKE ONE TABLET BY MOUTH FOUR TIMES A DAY, Disp-120 Tab, R-3 clopidogrel (PLAVIX) 75 mg Tablet Take 1 Tab by mouth daily., Disp-30 Tab, R-3 fenofibrate nanocrystallized (TRICOR) 145 mg tablet Take 1 Tab by mouth daily wi supper., Disp-30 Tab, R-5 simvastatin (ZOCOR) 40 mg tablet TAKE ONE TABLET (40MG) BY MOUTH EVERY DAY IN E EVENING, Disp-90 Tab, R-1 ramipril (ALTACE) 10 mg capsule Take 1 Cap by mouth daily., Disp-90 Cap, R-1 loratadine (CLARITIN) 10 mg tablet Take 1 Tab by mouth daily., Disp-30 Tab, R-5 ZETIA 10 mg tablet Take 1 Tab by mouth daily at bedtime., Disp-30 Tab, R-5 isosorbide mononitrate SR 24 hour (IMDUR) 60 mg tablet TAKE ONE TABLET BY MOUTH 2 TIMES A DAY, Disp-60 Tab, R-5 fluticasone (FLOVENT HFA) 110 mcg/actuation Aerosol Take 1 Puff by inhalation 2 times daily., Disp-12 Gram, R-5 albuterol (PROAIR HFA) 90 mcg/Actuation HFA Aerosol Inhaler HFA inhaler Take 2 P uffs by inhalation every 4 hours as needed for Shortness of Breath., Disp-8.5 Gr am, R-5 insulin glargine (LANTUS) 100 unit/mL Solution 40 units at bedtime, Disp-10 mL, R-11 FLOMAX 0.4 mg Oral capsule TAKE ONE CAPSULE BY MOUTH EVERY DAY 30 MINUTES AFTER SUPPER, Disp-30 Cap, R-11 naproxen sodium 220 mg Oral Cap Take by mouth daily. 2 tablets daily ibuprofen (MOTRIN) 800 mg Oral tablet Take 1 Tab by mouth 3 times daily with delmi ls., Disp-90 Tab, R-3 magnesium oxide 250 mg Oral Tab Take 1 Tab by mouth 3 times daily. ASPIRIN EC 81 mg Oral TbEC Take 81 mg by mouth daily. MULTIVITAMIN PO Take 1 Tab by mouth daily with lunch. AEROBID IN Take 2 Puffs by inhalation 3 times daily. BETIMOL 0.5 % OP Drop Administer 1 Drop in both eyes 2 times daily. TYLENOL 325 mg Oral Tab Take 1-2 Tabs by mouth every 4 hours as needed for Pain. !! LORazepam (ATIVAN) 1 mg tablet Take 1 Tab by mouth see administration instruc tions. 1/2 tab mid day for next 14 days only, Disp-7 Tab, R-0 HYDROcodone-acetaminophen (NORCO) 5-325 mg Oral tablet Take 1 Tab by mouth every 4 hours as needed for Pain. may take one or two tabs every 4 hours as needed for pain. ACTOS 30 mg Oral tablet Take 1 Tab by mouth daily., Disp-30 Tab, R-11 NITROSTAT 0.[address] 1 Tab under tongue every 5 minutes as nee ded for Chest Pain., Disp-25 Tab, R-PRN FLUoxetine (PROZAC) 20 mg Oral tablet Take by mouth daily. take 2 capsules jono y blood sugar diagnostic (ACCU-CHEK ACTIVE TEST) Misc Strp In the am & pm prn, Disp-1 Package, R-0 ALBUTEROL IN Take 2 Puffs by inhalation every 6 hours as needed !! - Potential duplicate medications found. Please discuss with provider. PHYSICAL EXAM INITIAL VS BP: 155/79 mmHg (06/27/142124), Heart Rate (Monitored): (not recorded), Resp: 2 6 (06/27/142124), Temp: 98.4 F (36.9 C) (06/27/142124), Temp src: (not rec orded), SpO2: 97 % (06/27/142124), Height: 5' 6" (167.6 cm) (06/27/142124), We ight: 90.719 kg (06/27/142124), BMI (Calculated): 32.35 (06/27/142124) No LMP for male patient. Physical Exam Nursing note and vitals reviewed. Constitutional: He appears well-developed and well-nourished. He is active and c ooperative. Non-toxic appearance. No distress. HENT: Head: Normocephalic and atraumatic. Mouth/Throat: Oropharynx is clear and moist. Cardiovascular: Normal rate, regular rhythm and intact distal pulses. Pulmonary/Chest: Effort normal and breath sounds normal. No respiratory distress . He has no decreased breath sounds. He has no wheezes. He has no rales. He exhi bits tenderness. Neurological: He is alert. Skin: Skin is warm and dry. He is not diaphoretic. DIAGNOSTICS LAB: RADIOLOGY: XR RIBS UNILATERAL LEFT W PA CHEST ED Interpretation: Possible 7th lateral rib fracture. No Pneumothorax EKG: PROCEDURES Procedures MEDICAL DECISION MAKING AND PLAN OF CARE Pain shots and check xray REEVALUATION Improved pain after shots. Possible 7th rib lateral fracture. No pneumothorax. Discharge on percocet and ice to chest wall and check back with pcp CASE DISCUSSED Medications Administered During the ED Stay from 06/27/20142120 to 06/27/2014 2 251 Date/Time Order Dose Route Action 06/27/20142204 fentaNYL PF (SUBLIMAZE) 50 mcg/mL injection 50 mcg 50 mcg IM G iven 06/27/20142208 ketorolac (TORADOL) injection 15 mg 15 mg IM Given 06/27/20142206 orphenadrine citrate (NORFLEX) 30 mg/mL injection 30 mg 30 mg IM Given Discharge Medication List as of 06/27/2014 10:47 PM CONTINUE these medications which have CHANGED Details !! oxyCODONE-acetaminophen (PERCOCET) 5-325 mg tablet Take 1-2 Tabs by mouth ranulfo ry 6 hours as needed for Pain, Moderate., Disp-50 Tab, R-0 !! oxyCODONE-acetaminophen (PERCOCET) 5-325 mg tablet Take 1-2 Tabs by mouth ranulfo ry 4 hours as needed for Pain, Severe for up to 1 day., Disp-6 Tab, R-None !! - Potential duplicate medications found. Please discuss with provider. CONTINUE these medications which have NOT CHANGED Details OLANZapine (ZYPREXA) 2.5 mg tablet Take 1 Tab by mouth daily at bedtime., Disp-3 0 Tab, R-5 NEXIUM 40 mg Capsule, Delayed Release(E.C.) Take 1 Cap by mouth daily before latosha akfast., Disp-30 Cap, R-6 fluticasone (FLONASE) 50 mcg/spray [place], Suspension Administer 2 Sprays in each nostril daily., Disp-16 Gram, R-5 zolpidem (AMBIEN) 10 mg tablet TAKE 1 TABLET BY MOUTH AT BEDTIME NEEDED., Dis p-30 Tab, R-2 phenytoin sodium extended release (DILANTIN) 100 mg capsule TAKE 2 CAPSULES BY M OUTH EVERY MORNING AND ONE CAPSULE AT BEDTIME., Disp-90 Cap, R-3 FLUoxetine (PROZAC) 20 mg capsule Take 2 Caps by mouth daily., Disp-60 Cap, R-5 !! LORazepam (ATIVAN) 1 mg tablet TAKE ONE TABLET BY MOUTH 2 TIMES A DAY., Disp- 60 Tab, R-2 bethanechol (URECHOLINE) 25 mg tablet TAKE ONE TABLET BY MOUTH FOUR TIMES A DAY, Disp-120 Tab, R-3 clopidogrel (PLAVIX) 75 mg Tablet Take 1 Tab by mouth daily., Disp-30 Tab, R-3 fenofibrate nanocrystallized (TRICOR) 145 mg tablet Take 1 Tab by mouth daily wi supper., Disp-30 Tab, R-5 simvastatin (ZOCOR) 40 mg tablet TAKE ONE TABLET (40MG) BY MOUTH EVERY DAY IN E EVENING, Disp-90 Tab, R-1 ramipril (ALTACE) 10 mg capsule Take 1 Cap by mouth daily., Disp-90 Cap, R-1 loratadine (CLARITIN) 10 mg tablet Take 1 Tab by mouth daily., Disp-30 Tab, R-5 ZETIA 10 mg tablet Take 1 Tab by mouth daily at bedtime., Disp-30 Tab, R-5 isosorbide mononitrate SR 24 hour (IMDUR) 60 mg tablet TAKE ONE TABLET BY MOUTH 2 TIMES A DAY, Disp-60 Tab, R-5 fluticasone (FLOVENT HFA) 110 mcg/actuation Aerosol Take 1 Puff by inhalation 2 times daily., Disp-12 Gram, R-5 albuterol (PROAIR HFA) 90 mcg/Actuation HFA Aerosol Inhaler HFA inhaler Take 2 P uffs by inhalation every 4 hours as needed for Shortness of Breath., Disp-8.5 Gr am, R-5 insulin glargine (LANTUS) 100 unit/mL Solution 40 units at bedtime, Disp-10 mL, R-11 FLOMAX 0.4 mg Oral capsule TAKE ONE CAPSULE BY MOUTH EVERY DAY 30 MINUTES AFTER SUPPER, Disp-30 Cap, R-11 naproxen sodium 220 mg Oral Cap Take by mouth daily. 2 tablets daily ibuprofen (MOTRIN) 800 mg Oral tablet Take 1 Tab by mouth 3 times daily with delmi ls., Disp-90 Tab, R-3 magnesium oxide 250 mg Oral Tab Take 1 Tab by mouth 3 times daily. ASPIRIN EC 81 mg Oral TbEC Take 81 mg by mouth daily. MULTIVITAMIN PO Take 1 Tab by mouth daily with lunch. AEROBID IN Take 2 Puffs by inhalation 3 times daily. BETIMOL 0.5 % OP Drop Administer 1 Drop in both eyes 2 times daily. TYLENOL 325 mg Oral Tab Take 1-2 Tabs by mouth every 4 hours as needed for Pain. !! LORazepam (ATIVAN) 1 mg tablet Take 1 Tab by mouth see administration instruc tions. 1/2 tab mid day for next 14 days only, Disp-7 Tab, R-0 HYDROcodone-acetaminophen (NORCO) 5-325 mg Oral tablet Take 1 Tab by mouth every 4 hours as needed for Pain. may take one or two tabs every 4 hours as needed for pain. ACTOS 30 mg Oral tablet Take 1 Tab by mouth daily., Disp-30 Tab, R-11 NITROSTAT 0.[address] 1 Tab under tongue every 5 minutes as nee ded for Chest Pain., Disp-25 Tab, R-PRN FLUoxetine (PROZAC) 20 mg Oral tablet Take by mouth daily. take 2 capsules jono y blood sugar diagnostic (ACCU-CHEK ACTIVE TEST) Misc Strp In the am & pm prn, Disp-1 Package, R-0 ALBUTEROL IN Take 2 Puffs by inhalation every 6 hours as needed !! - Potential duplicate medications found. Please discuss with provider. LAST VITALS BP: 155/79 mmHg (06/27/142124), Heart Rate (Monitored): (not recorded), Resp: 2 6 (06/27/142124), Temp: 98.4 F (36.9 C) (06/27/142124), Temp src: (not rec orded), SpO2: 97 % (06/27/142124) CLINICAL IMPRESSION Final diagnoses: Chest wall contusion, left, initial encounter Left rib fracture, closed, initial encounter CODING MDM Coding Reviewed: vitals, nursing note and previous chart Interpretation: x-ray and SP02 DISPOSITION, EDUCATION AND MEDICATION RECONCILIATION Medications reconciled. See after visit summary for patient education on discha rged patients. * Nayely Duff, RN - 06/27/2014 9:28 PM CDT Pt states he tripped over tv and fell causing left rib and axilla pain. Pt stat es pain is severe, no bruising noted. documented in this encounter Plan of Treatment Not on filedocumented as of this encounter Procedures Comments Procedure Name Priority Date/Time Associated Diag nosis XR RIBS UNILATERAL LEFT W Stat 06/27/2014 PA CHEST 9:51 PM CDT documented in this encounter Results * XR RIBS UNILATERAL LEFT W PA CHEST (06/27/2014 9:51 PM CDT) Specimen Impressions Performed At IMPRESSION: Suboptimal exam. Question left sixth rib fracture. INTERFACE SYSTEM Narrative Performed At PA chest with left ribs INTERFACE SYSTEM HISTORY: Fall, pain PA chest with 4 views of the ribs are o btained. Exam is grossly suboptimal secondary to poor visualizat ion of the ribs on rib films. The cardiac silhouette and pulmonary va scularity are normal. No infiltrates or masses are seen. There i s no pneumothorax. The patient is status post median sternotomy for CA BG. There is question of a left sixth rib fracture. No other fractures are seen. No bony masses are noted. Procedure Note Interface, [facility] [place] [facility] Incoming Radiology Results - 06/28/2014 9:26 AM CDT PA chest with left ribs HISTORY: Fall, [...] are seen. No bony masses are noted. IMPRESSION IMPRESSION: Suboptimal exam. Question left sixth rib fracture. Performing Organization Address City/State/Zipcode Ph one Number INTERFACE SYSTEM INTERFACE SYSTEM Refer to clinic/hospital department documented in this encounter Visit Diagnoses Diagnosis Chest wall contusion, left, initial enc ounter - Primary Left rib fracture, closed, initial enco unter Back pain Backache, unspecified documented in this encounter Administered Medications Action Date Dose Rate Site Medication Order MAR Action 06/27/2014 10:05 PM CDT 50 mcg Shoulder , Left fentaNYL PF (SUBLIMAZE) 50 mcg/mL Given injection 50 mcg 50 mcg, IM, ONE TIME ONLY, 1 dose, 06/27/14 at 2145, Routine 06/27/2014 10:09 PM CDT 15 mg Shoulder , Right ketorolac (TORADOL) injection 15 mg Given 15 mg, IM, ONE TIME ONLY, 1 dose, 06/27/14 at 2145, Routine 06/27/2014 10:07 PM CDT 30 mg Shoulder , Right orphenadrine citrate (NORFLEX) 30 mg/mL Given injection 30 mg 30 mg, IM, ONE TIME ONLY, 1 dose, Wed06/27/14 at 2145, Routine documented in this encounter
--- OUTSIDE RECORDS SUMMARY | 2020-03-24 14:15 | XMS REPORT | Encounter Summary ---
Author Author [facility] Organization [facility] Address Unknown Phone Unavailable Care Team Providers Care Integration Architect Name Role Phone Shahram Mccallum MD PCP Unavailable Reason for Visit * Reason Comments Medication Refill Encounter Details Care Team Description Date Type Department Nikky Woods Back pain (Primary Dx) 09/14/2014 Refill [facility] Primar y Care [place] [address] [place] [phone] Social History Date Tobacco Use Types Packs/Day [...]
--- OUTSIDE RECORDS SUMMARY | 2020-03-24 14:15 | XMS REPORT | Encounter Summary ---
Author Author [facility] Organization [facility] Address Unknown Phone Unavailable Care Team Providers Care Geomatics Professor Name Role Phone Shahram Mccallum MD PCP Unavailable Reason for Visit * Reason Comments Medication Refill Encounter Details Care Team Description Date Type Department Shahram Mccallum MD NO ADDRESS ON FILE 08/24/2014 Refill [facility] [place] Primar y Care [address] [phone] Social History Date Tobacco Use Types Packs/Day [...]
--- OUTSIDE RECORDS SUMMARY | 2020-03-24 14:15 | XMS REPORT | Encounter Summary ---
Author Author [facility] Organization [facility] Address Unknown Phone Unavailable Care Team Providers Care Pricing Analyst Name Role Phone Shahram Mccallum MD PCP Unavailable Reason for Visit * Reason Comments Medication Refill Encounter Details Care Team Description Date Type Department Shahram Mccallum MD NO ADDRESS ON FILE 08/09/2014 Refill [facility] Primar y Care [address] [phone] Social History Date Tobacco Use Types Packs/Day [...]
--- OUTSIDE RECORDS SUMMARY | 2020-03-24 14:15 | XMS REPORT | Encounter Summary ---
Author Author [facility] Organization [facility] Address Unknown Phone Unavailable Care Team Providers Care Sql Server Dba Developer Name Role Phone Shahram Mccallum MD PCP Unavailable Reason for Visit * Reason Comments Medication Refill Encounter Details Care Team Description Date Type Department Self, Aries Montelongo MD [address] [place] [address] 06/29/2014 Refill [facility] Primar y Care [place] [address] [place] [address] Social History Date Tobacco [...]
--- OUTSIDE RECORDS SUMMARY | 2020-03-24 14:15 | XMS REPORT | Encounter Summary ---
Author Author [facility] Organization [facility] Address Unknown Phone Unavailable Care Team Providers Care Fish Flipper Name Role Phone Shahram Mccallum MD PCP Unavailable Reason for Visit * Reason Comments Medication Refill Encounter Details Care Team Description Date Type Department Shahram Mccallum MD NO ADDRESS ON FILE 07/11/2014 Refill [facility] Primar y Care [address] [phone] Social History Date Tobacco Use Types Packs/Day [...]
--- OUTSIDE RECORDS SUMMARY | 2020-03-24 14:15 | XMS REPORT | Encounter Summary ---
Author Author [facility] Organization [facility] Address Unknown Phone Unavailable Care Team Providers Care Research Methodologist Name Role Phone Shahram Mccallum MD PCP Unavailable Reason for Visit * Reason Comments Medication Refill Encounter Details Care Team Description Date Type Department Shahram Mccallum MD NO ADDRESS ON FILE 06/26/2014 Refill [facility] Primar y Care [address] [phone] Social History Date Tobacco Use Types Packs/Day [...]
--- OUTSIDE RECORDS SUMMARY | 2020-03-24 14:15 | XMS REPORT | Encounter Summary ---
Author Author [facility] Organization [facility] Address Unknown Phone Unavailable Care Team Providers Care Wholesale Diamond Broker Name Role Phone Shahram Mccallum MD PCP Unavailable Reason for Visit * Reason Comments Anxiety Encounter Details Care Team Description Date Type Department Rosalinda Bal Anxiety 05/07/2014 Telephone [facility] Primar y Care [place] [address] [place] [address] Social History Date Tobacco Use [...] * Telephone Encounter - Rosalinda Bal - 05/07/2014 4:[address] Fajardo rec. Increasing Xanax for the next two week but patient is not on Nitesh ax he is on Lorazepam 1mg bid. Per Dr Mccallum patient may take 0.5mg at noon fo r next 14 days only. documented in this encounter Plan of Treatment Not on filedocumented as of this encounter Visit Diagnoses Not on filedocumented in this encounter
--- OUTSIDE RECORDS SUMMARY | 2020-03-24 14:15 | XMS REPORT | Encounter Summary ---
Author Author [facility] Organization [facility] Address Unknown Phone Unavailable Care Team Providers Care Grooving Machine Operator Name Role Phone Shahram Mccallum MD PCP Unavailable Reason for Visit * Reason Comments Medication Refill Encounter Details Care Team Description Date Type Department Shahram Mccallum MD NO ADDRESS ON FILE 06/14/2014 Refill [facility] Primar y Care [address] [phone] Social History Date Tobacco Use Types Packs/Day [...]
--- OUTSIDE RECORDS SUMMARY | 2020-03-24 14:15 | XMS REPORT | Encounter Summary ---
Author Author [facility] Organization [facility] Address Unknown Phone Unavailable Care Team Providers Care Machine Maintenance Servicer Name Role Phone Shahram Mccallum MD PCP Unavailable Reason for Visit * Reason Comments Follow Up 11 month Encounter Details Care Team Description Date Type Department Walter Oconnor MD [address] [facility] [address] [place] [phone] Bipolar disorder, unspecified (Primary D x); Unspecified essential hypertension; Hyperlipidemia; CAD (coronary artery disease); COPD (chronic obstructive pulmonary disease); Diabetes mellitus; Seizure disorder 05/21/2014 Office Visit [facility] [address] [place] [address] Social History Date Tobacco Use Types Packs/Day Years Used Quit: 03/08/1995 Current Every Day Smoker Cigarettes 1 40 Smokeless Tobacco: Never Used Tobacco Cessation: Ready to Quit: No; Co unseling Given: Yes Comments: Restarted smoking cigarettes 1 pack [...] Signs Reading Time Taken Comments Vital Sign 122/78 05/21/2014 2:06 PM CDT right arm Blood Pressure 68 05/21/2014 2:06 PM CDT regular Pulse - - Temperature - - Respiratory Rate - - Oxygen Saturation - - Inhaled Oxygen Concentration 87.5 kg (193 lb) 05/21/2014 2:06 PM CDT Weight 167.6 cm (5' 6") 05/21/2014 2:06 PM CDT Height 31.15 05/21/2014 2:06 PM CDT Body Mass Index documented in this encounter Progress Notes * Walter Oconnor MD - 05/21/2014 2:12 PM CDT HISTORY OF PRESENT ILLNESS Oliverio Dalton, a 63 y.o. male. HPI The patient presents for follow-up of coronary artery disease, DL, HTN. Since e last visit he has not had chest pain, shortness of breath or any other new ca rdiac symptoms. He has lost some weight and states he feels better than he has i n a long time. His medications and most recent lab have been reviewed. The patient's past medical, social and family history were reviewed. Current Outpatient Prescriptions on File Prior to Visit Medication Sig Dispense Refill LORazepam (ATIVAN) 1 mg tablet Take 1 Tab by mouth see administration instru ctions. 1/2 tab mid day for next 14 days only 7 Tab 0 oxyCODONE-acetaminophen (PERCOCET) 5-325 mg tablet Take 1-2 Tabs by mouth ev len 6 hours as needed for Pain, Moderate. 50 Tab 0 phenytoin sodium extended release (DILANTIN) 100 mg [...] Tab by mouth daily. 30 Tab 3 zolpidem (AMBIEN) 10 mg tablet TAKE 1 TABLET BY MOUTH AT BEDTIME NEEDED. LAST REFILLS PT MUST MAKE APPT 30 Tab 1 fenofibrate nanocrystallized (TRICOR) 145 mg [...] mouth daily at bedtime. 30 Tab 5 isosorbide mononitrate SR 24 hour (IMDUR) 60 mg tablet TAKE ONE TABLET BY MO UT 2 TIMES A DAY 60 Tab 5 NEXIUM 40 mg Capsule, Delayed Release(E.C.) Take 1 Cap by mouth daily before breakfast. 30 Cap 5 fluticasone (FLOVENT HFA) 110 mcg/actuation Aerosol [...] 4 hours as neede d for pain. FLOMAX 0.4 mg Oral capsule TAKE ONE CAPSULE BY MOUTH EVERY DAY [address] SUPPER 30 Cap 11 OLANZapine (ZYPREXA) 2.5 mg Oral tablet Take 1 Tab by mouth daily at bedtime . 30 Tab 11 ACTOS 30 mg Oral tablet Take 1 [...] Systems Constitutional: Positive for fatigue. Negative for activity change. HENT: Negative for congestion and facial swelling. Eyes: Negative for discharge. Respiratory: Positive for shortness of breath. Negative for apnea, cough, chest tightness and wheezing. Cardiovascular: Positive for palpitations. Negative for chest pain and leg swell ing. Gastrointestinal: Negative for nausea, vomiting, abdominal pain and diarrhea. Genitourinary: Negative for dysuria, urgency, frequency and hematuria. Musculoskeletal: Negative for back pain, arthralgias and gait problem. Skin: Negative for color change and pallor. Neurological: Positive for dizziness and headaches. Negative for syncope, facial asymmetry, speech difficulty, weakness and light-headedness. Hematological: Bruises/bleeds easily. Psychiatric/Behavioral: Negative for behavioral problems and confusion. PHYSICAL EXAM BP 122/78 | Pulse 68 | Ht 5' 6" (1.676 m) | Wt 193 lb (87.544 kg) | BMI 31.17 kg /m2 Physical Exam Constitutional: He is oriented to person, place, and time. He appears well-devel oped and well-nourished. HENT: Head: Normocephalic and atraumatic. Right Ear: Hearing normal. Left Ear: Hearing normal. Nose: Nose normal. Mouth/Throat: Oropharynx is clear and moist and mucous membranes are normal. Abn ormal dentition. Eyes: Pupils are equal, round, and reactive to light. Neck: No JVD present. Carotid bruit is not present. No thyromegaly present. Cardiovascular: Normal rate, regular rhythm and intact distal pulses. Exam reve als distant heart sounds. Exam reveals no gallop and no friction rub. Murmur heard. Systolic murmur is present with a grade of 1/6 Pulmonary/Chest: Effort normal. No respiratory distress. He has decreased breath sounds. He has no wheezes. He has no rhonchi. He has no rales. Abdominal: Soft. Normal appearance and bowel sounds are normal. There is no tend erness. Musculoskeletal: Normal range of motion. He exhibits no edema and no tenderness. Neurological: He is alert and oriented to person, place, and time. Skin: Skin is warm and dry. No rash noted. No erythema. Psychiatric: He has a normal mood and affect. His behavior is normal. Judgment n ormal. ASSESSMENT and PLAN: ICD-9-CM ICD-10-CM 1. Bipolar disorder, unspecified 296.80 F31.9 2. Unspecified essential hypertension 401.9 I10 3. Hyperlipidemia 272.4 E78.5 4. CAD (coronary artery disease) 414.00 I25.10 5. COPD (chronic obstructive pulmonary disease) 496 J44.9 6. Diabetes mellitus 250.00 E11.9 7. Seizure disorder 345.90 G40.909 Same meds Lab per primary No refills needed 9 month return documented in this encounter Plan of Treatment Not on filedocumented as of this encounter Visit Diagnoses Diagnosis Bipolar disorder, unspecified - Primary Unspecified essential hypertension Hyperlipidemia Other and unspecified hyperlipidemia CAD (coronary artery disease) Coronary atherosclerosis of unspecified type of vessel, wales or graft COPD (chronic obstructive pulmonary dis ease) Chronic airway obstruction, not elsewhe re classified Diabetes mellitus Type II or unspecified type diabetes me llitus without mention of complication, not stated as uncontrolled Seizure disorder Unspecified epilepsy without mention of intractable epilepsy documented in this encounter
--- OUTSIDE RECORDS SUMMARY | 2020-03-24 14:16 | XMS REPORT | Encounter Summary ---
Author Author [facility] Organization [facility] Address Unknown Phone Unavailable Care Team Providers Care Closet Organizer Name Role Phone Shahram Mccallum MD PCP Unavailable Reason for Visit * Reason Comments Follow Up Colon Encounter Details Care Team Description Date Type Department Mary Zhou MD NO ADDRESS ON FILE Status post colonoscopy (Primary Dx) 01/09/2014 Office Visit [address] [phone] Social History Date Tobacco Use [...] Signs Reading Time Taken Comments Vital Sign 123/60 01/09/2014 2:20 PM AUTO WRECKER Blood Pressure - - Pulse 36.2 C (97.1 F) 01/09/2014 2:20 PM AUTO WRECKER Temperature - - Respiratory Rate - - Oxygen Saturation - - Inhaled Oxygen Concentration 95.3 kg (210 lb) 01/09/2014 2:20 PM AUTO WRECKER Weight 167.6 cm (5' 6") 01/09/2014 2:20 PM AUTO WRECKER Height 33.89 01/09/2014 2:20 PM AUTO WRECKER Body Mass Index documented in this encounter Progress Notes * Mary Zhou MD - 01/10/2014 4:22 PM AUTO WRECKER Subjective: Patient no new complaints. Current Outpatient Prescriptions Medication Sig Dispense Refill isosorbide mononitrate SR 24 hour (IMDUR) 60 mg tablet TAKE ONE TABLET BY MO UTH 2 TIMES A DAY 60 Tab 5 [...] units at bedtime 10 mL 1 1 phenytoin sodium extended release (DILANTIN) 100 mg capsule TAKE 2 CAPSULES BY MOUTH EVERY MORNING AND ONE CAPSULE AT BEDTIME. 90 Cap 5 LORazepam (ATIVAN) 1 mg tablet TAKE ONE TABLET BY MOUTH 2 TIMES A DAY. 60 T ab 2 FLUoxetine (PROZAC) 20 mg capsule Take 2 Caps by mouth daily. 60 Cap 5 zolpidem (AMBIEN) 10 mg tablet TAKE 1 TABLET BY MOUTH AT BEDTIME NEEDED. 30 Tab 3 TRICOR 145 mg Oral tablet Take 1 Tab by mouth daily with supper. 30 Tab 5 HYDROcodone-acetaminophen (NORCO) 5-325 mg Oral tablet Take [...] daily at bedtime . 30 Tab 11 simvastatin (ZOCOR) 40 mg Oral tablet TAKE ONE TABLET (40MG) BY MOUTH EVERY DAY IN THE EVENING 60 Tab 6 ACTOS 30 mg Oral tablet Take 1 Tab by mouth daily. 30 Tab 11 NITROSTAT 0.[address] 1 Tab under tongue every 5 minutes as needed for Chest Pain. 25 Tab PRN ramipril (ALTACE) 10 mg Oral capsule Take 1 Cap by mouth daily. 30 Cap 11 clopidogrel (PLAVIX) 75 mg Oral Tab Take 1 Tab by mouth daily. 30 Tab 11 loratadine (CLARITIN) 10 mg Oral tablet Take 1 Tab by mouth daily. 30 Tab 11 naproxen sodium 220 mg Oral Cap Take by mouth daily. 2 tablets daily ezetimibe (ZETIA) 10 mg Oral tablet Take 1 Tab by mouth daily at bedtime. 3 0 Tab 11 bethanechol (URECHOLINE) 25 mg Oral tablet Take 1 Tab by mouth 4 times daily . 120 Tab 11 ondansetron (ZOFRAN) 4 mg Oral Tab Take 1 Tab by mouth every 6 hours as need ed for Nausea/Emesis. 15 Tab 0 ibuprofen (MOTRIN) 800 mg Oral tablet Take [...] 4 hours as needed for P ain. oxyCODONE-acetaminophen (PERCOCET) 5-325 mg tablet Take 1-2 Tabs by mouth ev len 6 hours as needed for Pain, Moderate. 50 Tab 0 No current facility-administered medications for this visit. Objective: BP 123/60 | Temp(Src) 97.1 F (36.2 C) (Temporal) | Ht 5' 6" (1.676 m) | Wt 2 10 lb (95.255 kg) | BMI 33.91 kg/m2 General appearance: alert, in no distress Abdomen: Soft, non-tender. Bowel sounds normal. No masses, no organomegaly. Results for orders placed during the hospital encounter of 12/27/13 (from the [facility] 336 hour(s)) POC GLUCOSE Collection Time 12/27/13 4:54 PM Result Value Range POC GLUCOSE 129 (*) 70-100 mg/dL PATHOLOGY Collection Time 12/28/13 8:19 AM Result Value Range CASE REPORT Value: Surgical Pathology Report Case: [id number] Authorizing Provider: Mayr Zhou MD Ordering Provider: Jimena Zhou MD Ordering Location: [facility] Collected: 12/28/2013 8:19 AM Operating Room Pathologist: Keaton Anne MD Received: 12/28/2013 2:54 PM Signed Out: 12/29/2013 8:41 PM (Final) Specimen: , Rectal polyps. FINAL DIAGNOSIS Value: Rectum, biopsies: 1. Hyperplastic polyp. 2. Mucosal lymphoid aggregates. CPT Code: 41598 ICD9 Code: 569.9, 569.89 OPERATIVE PROCEDURE Value: Colonoscopy. GROSS DESCRIPTION Value: The specimen is received in formalin and consists of three 0.2 to 0.5 cm parsons-echeverria soft tissue fragments entirely submitted. MICROSCOPIC DESCRIPTION Value: Microscopic examination shows fragments of colonic mucosa. Some tangenti al sectioning is present. Vague lymphoid aggregates are sometimes seen in the la tate propria. One fragment shows crypts with serrated luminal borders and decrea sed numbers of goblet cells. There is no adenomatous epithelium or malignancy. Assessment: Status post colonoscopy, no complication. No adenomatous polyps found. Plan: Repeat colonoscopy in 10 years. WRECKER documented in this encounter Plan of Treatment Not on filedocumented as of this encounter Visit Diagnoses Diagnosis Status post colonoscopy - Primary Other postprocedural status documented in this encounter
--- OUTSIDE RECORDS SUMMARY | 2020-03-24 14:16 | XMS REPORT | Encounter Summary ---
Author Author [facility] Organization [facility] Address Unknown Phone Unavailable Care Team Providers Care Prepleater Name Role Phone Shahram Mccallum MD PCP Unavailable Reason for Visit * Reason Comments Medication Refill Encounter Details Care Team Description Date Type Department Shahram Mccallum MD NO ADDRESS ON FILE 04/11/2014 Refill [facility] Prim[facility] y Care [address] [phone] Social History Date Tobacco Use Types Packs/Day [...]
--- OUTSIDE RECORDS SUMMARY | 2020-03-24 14:16 | XMS REPORT | Encounter Summary ---
Author Author [facility] Organization [facility] Address Unknown Phone Unavailable Care Team Providers Care Energy Conservation Specialist Name Role Phone Shahram Mccallum MD PCP Unavailable Reason for Visit * Reason Comments Medication Refill Encounter Details Care Team Description Date Type Department Shahram Mccallum MD NO ADDRESS ON FILE 01/12/[address] [facility] Primar y Care [address] [phone] Social History Date Tobacco Use Types Packs/Day [...]
--- OUTSIDE RECORDS SUMMARY | 2020-03-24 14:16 | XMS REPORT | Encounter Summary ---
Author Author [facility] Organization [facility] Address Unknown Phone Unavailable Care Team Providers Care Molded Grid And Parts Inspector Name Role Phone Shahram Mccallum MD PCP Unavailable Reason for Visit * Reason Comments Medication Refill Encounter Details Care Team Description Date Type Department Shahram Mccallum MD NO ADDRESS ON FILE 02/02/2014 Refill [facility] Primar y Care [address] [phone] Social History Date Tobacco Use Types Packs/Day [...]
--- OUTSIDE RECORDS SUMMARY | 2020-03-24 14:16 | XMS REPORT | Encounter Summary ---
Author Author [facility] Organization [facility] Address Unknown Phone Unavailable Care Team Providers Care Doubler Operator Name Role Phone Shahram Mccallum MD PCP Unavailable Reason for Visit * Reason Comments Medication Refill Encounter Details Care Team Description Date Type Department Shahram Mccallum MD NO ADDRESS ON FILE 03/09/2014 Refill [facility] Primar y Care [address] [phone] Social History Date Tobacco Use Types Packs/Day [...]
--- OUTSIDE RECORDS SUMMARY | 2020-03-24 14:16 | XMS REPORT | Encounter Summary ---
Author Author [facility] Organization [facility] Address Unknown Phone Unavailable Care Team Providers Care Instructional Assistant Name Role Phone Shahram Mccallum MD PCP Unavailable Reason for Visit * Reason Comments Medication Refill Encounter Details Care Team Description Date Type Department Shahram Mccallum MD NO ADDRESS ON FILE 03/30/2014 Refill [facility] Primar y Care [address] [phone] Social History Date Tobacco Use Types Packs/Day [...]
--- OUTSIDE RECORDS SUMMARY | 2020-03-24 14:16 | XMS REPORT | Encounter Summary ---
Author Author [facility] Organization [facility] Address Unknown Phone Unavailable Care Team Providers Care Weaver Tire Cord Name Role Phone Shahram Mccallum MD PCP Unavailable Reason for Visit * Reason Comments Medication Refill Encounter Details Care Team Description Date Type Department Shahram Mccallum MD NO ADDRESS ON FILE 01/12/2014 Refill [facility] Primar y Care [address] [phone] Social History Date Tobacco Use Types Packs/Day [...]
--- OUTSIDE RECORDS SUMMARY | 2020-03-24 14:16 | XMS REPORT | Encounter Summary ---
Author Author [facility] Organization [facility] Address Unknown Phone Unavailable Care Team Providers Care Gift Officer Name Role Phone Shahram Mccallum MD PCP Unavailable Reason for Visit * Reason Comments Medication Refill Encounter Details Care Team Description Date Type Department Shahram Mccallum MD NO ADDRESS ON FILE Back pain (Primary Dx) 01/09/2014 Refill [facility] Primar Care [address] [phone] Social History Date Tobacco Use Types Packs/Day [...]
--- OUTSIDE RECORDS SUMMARY | 2020-03-24 14:16 | XMS REPORT | Encounter Summary ---
Author Author [facility] Organization [facility] Address Unknown Phone Unavailable Care Team Providers Care Engineering Group Manager Name Role Phone Shahram Mccallum MD PCP Unavailable Reason for Visit * Reason Comments Medication Refill Encounter Details Care Team Description Date Type Department Shahram Mccallum MD NO ADDRESS ON FILE 01/11/2014 Refill [facility] Primar y Care [address] [phone] Social History Date Tobacco Use Types Packs/Day [...]
--- OUTSIDE RECORDS SUMMARY | 2020-03-24 14:16 | XMS REPORT | Encounter Summary ---
Author Author [facility] Organization [facility] Address Unknown Phone Unavailable Care Team Providers Care Custodian Name Role Phone Shahram Mccallum MD PCP Unavailable Reason for Visit * Reason Comments Medication Refill Encounter Details Care Team Description Date Type Department Shahram Mccallum MD NO ADDRESS ON FILE 01/03/[address] [facility] Primar y Care [address] [phone] Social History Date Tobacco Use Types Packs/Day [...]
--- OUTSIDE RECORDS SUMMARY | 2020-03-24 14:16 | XMS REPORT | Encounter Summary ---
Author Author [facility] Organization [facility] Address Unknown Phone Unavailable Care Team Providers Care Clark Driver Name Role Phone Shahram Mccallum MD PCP Unavailable Reason for Visit * Auth/Cert Referred By Contact Referred To Contact Status Reason Specialty Diagnoses / Procedures [facility] Med Surg [address] [place] [address] Closed Inpatient Diagnoses Screening colonoscopy Encounter Details Care Team Description Date Type Department Mary Moore MD NO ADDRESS ON FILE COLONOSCOPY 12/28/2013 Surgery [facility] Operating Room [address] [place] [address] Social History Date Tobacco Use [...] Reading Time Taken Comments Vital Sign 124/80 12/28/2013 9:04 AM DRIVER'S LICENSE REVIEWING OFFICER Blood Pressure 74 12/28/2013 9:04 AM DRIVER'S LICENSE REVIEWING OFFICER Pulse 36.1 C (96.9 F) 12/28/2013 9:04 AM DRIVER'S LICENSE REVIEWING OFFICER Temperature 16 12/28/2013 9:04 AM DRIVER'S LICENSE REVIEWING OFFICER Respiratory Rate 95% 12/28/2013 9:04 AM DRIVER'S LICENSE REVIEWING OFFICER Oxygen Saturation - - Inhaled Oxygen Concentration - - Weight 167.6 cm (5' 6") 12/27/2013 11:45 AM DRIVER'S LICENSE REVIEWING OFFICER Height - - Body Mass Index documented in this encounter Discharge Summaries * Mary Moore MD - 12/30/2013 10:49 AM DRIVER'S LICENSE REVIEWING OFFICER Physician Discharge Summary Patient: Oliverio Tinsley / 63 y.o. / male : 1950 Admit date: 12/27/2013 Indication for Admission: need for screening colonoscopy. Admitting Diagnoses: Screening colonoscopy Attending Physician: No att. providers found Consults: none. Problem List: Patient Active Problem List Diagnosis Code Renal [...] suprapubic 789.09 Bradycardia 427.89 Back pain 724.5 Urinary retention 788.20 LFT elevation 790.6 Osteoarthritis of right knee 715.96 Carpal tunnel syndrome 354.0 Diabetes mellitus 250.00 CAD (coronary artery disease) 414.00 COPD (chronic obstructive pulmonary disease) 496 Seizure disorder 345.90 Depression 311 Suicidal behavior 300.9 Encounter for screening colonoscopy V76.51 Treatments: procedures: colonoscopy. Significant Diagnostic Studies: Colonoscopy. Hospital Course: Uneventful and uncomplicated. Discharge date: 12/30/2013 Discharge Exam: BP 124/80 | Pulse 74 | Temp(Src) 96.9 F (36.1 C) (Tympanic) | Resp 16 | Ht 5 ' 6" (1.676 m) | SpO2 95% General appearance: alert, in no distress Abdomen: Soft, non-tender. Bowel sounds normal. No masses, no organomegaly. Discharge Condition: stable. Discharge Diagnoses: status post colonoscopy Disposition: home. MEDICATIONS Prior to admission: No prescriptions prior to admission Discharge medications and new prescriptions: Current Discharge Medication List CONTINUE taking these medications ACTOS 30 mg tablet Take 1 Tab by mouth daily. Provider: Shahram Mccallum Quantity: 30 Tab Refills: 11 Generic drug: pioglitazone AEROBID INHALATION Take 2 Puffs by inhalation 3 times daily. Refills: 0 albuterol 90 mcg/Actuation HFA inhaler Commonly known as: PROAIR HFA Take 2 Puffs by inhalation every 4 hours as needed for Shortness of Breath. Provider: Shahram Mccallum Quantity: 8.5 Gram Refills: 5 ALBUTEROL INHALATION Take 2 Puffs by inhalation every 6 hours as needed Refills: 0 Aspirin EC 81 mg Tbec Take 81 mg by mouth daily. Refills: 0 Generic drug: aspirin bethanechol 25 mg tablet Commonly known as: URECHOLINE Take 1 Tab by mouth 4 times daily. Provider: Shahram Mccallum Quantity: 120 Tab Refills: 11 BETIMOL 0.5 % solution Administer 1 Drop in both eyes 2 times daily. Refills: 0 Generic drug: timolol blood sugar diagnostic Strp Commonly known as: ACCU-CHEK ACTIVE TEST In the am & pm prn Provider: Sybil Henry Quantity: 1 Package Refills: 0 clopidogrel 75 mg Tab Commonly known as: PLAVIX Take 1 Tab by mouth daily. Provider: Shahram Mccallum Quantity: 30 Tab Refills: 11 esomeprazole 40 mg Cpdr Commonly known as: NexIUM Take 1 Cap by mouth daily before breakfast. Provider: Shahram Mccallum Quantity: 30 Cap Refills: 11 ezetimibe 10 mg tablet Commonly known as: ZETIA Take 1 Tab by mouth daily at bedtime. Provider: Shahram Mccallum Quantity: 30 Tab Refills: 11 FLOMAX 0.4 mg capsule TAKE ONE CAPSULE BY MOUTH EVERY DAY 30 MINUTES AFTER SUPPER Provider: Shahram Mccallum Quantity: 30 Cap Refills: 11 Generic drug: tamsulosin * FLUoxetine 20 mg capsule Commonly known as: PROZAC Take 2 Caps by mouth daily. Provider: Shahram Mccallum Quantity: 60 Cap Refills: 5 * FLUoxetine 20 mg tablet Commonly known as: PROZAC Take by mouth daily. take 2 capsules daily Refills: 0 fluticasone 110 mcg/actuation Aero Commonly known as: FLOVENT HFA Take 1 Puff by inhalation 2 times daily. Provider: Shahram Mccallum Quantity: 12 Gram Refills: 5 HYDROcodone-acetaminophen 5-325 mg tablet Commonly known as: NORCO Take 1 Tab by mouth every 4 hours as needed for Pain. may take one or two tabs e very 4 hours as needed for pain. Refills: 0 ibuprofen 800 mg tablet Commonly known as: MOTRIN Take 1 Tab by mouth 3 times daily with meals. Provider: Jose Bailey Quantity: 90 Tab Refills: 3 insulin glargine 100 unit/mL solution for injection Commonly known as: LANTUS 40 units at bedtime Provider: Shahram Mccallum Quantity: 10 mL Refills: 11 isosorbide mononitrate SR 24 hour 60 mg tablet Commonly known as: IMDUR Take 1 Tab by mouth 2 times daily. Provider: Shahram Mccallum Quantity: 60 Tab Refills: 11 loratadine 10 mg tablet Commonly known as: CLARITIN Take 1 Tab by mouth daily. Provider: Shahram Mccallum Quantity: 30 Tab Refills: 11 LORazepam 1 mg tablet Commonly known as: ATIVAN TAKE ONE TABLET BY MOUTH 2 TIMES A DAY. Provider: Shahram Mccallum Quantity: 60 Tab Refills: 2 magnesium oxide 250 mg Tab Take 1 Tab by mouth 3 times daily. Refills: 0 MULTIVITAMIN ORAL Take 1 Tab by mouth daily with lunch. Refills: 0 naproxen sodium 220 mg Cap Take by mouth daily. 2 tablets daily Refills: 0 NITROSTAT 0.[address] 1 Tab under tongue every 5 minutes as needed for Chest Pain. Provider: Shahram Mccallum Quantity: 25 Tab Refills: PRN Generic drug: nitroglycerin OLANZapine 2.5 mg tablet Commonly known as: ZyPREXA Take 1 Tab by mouth daily at bedtime. Provider: Shahram Mccallum Quantity: 30 Tab Refills: 11 ondansetron 4 mg Tab Commonly known as: ZOFRAN Take 1 Tab by mouth every 6 hours as needed for Nausea/Emesis. Provider: Shahram Mccallum Quantity: 15 Tab Refills: 0 oxyCODONE-acetaminophen 5-325 mg tablet Commonly known as: PERCOCET Take 1-2 Tabs by mouth every 6 hours as needed for Pain, Moderate. Provider: Claus Couch Quantity: 50 Tab Refills: 0 phenytoin sodium extended release 100 mg capsule Commonly known as: DILANTIN TAKE 2 CAPSULES BY MOUTH EVERY MORNING AND ONE CAPSULE AT BEDTIME. Provider: Shahram Mccallum Quantity: 90 Cap Refills: 5 ramipril 10 mg capsule Commonly known as: ALTACE Take 1 Cap by mouth daily. Provider: Shahram Mccallum Quantity: 30 Cap Refills: 11 simvastatin 40 mg tablet Commonly known as: ZOCOR TAKE ONE TABLET (40MG) BY MOUTH EVERY DAY IN THE EVENING Provider: Shahram Mccallum Quantity: 60 Tab Refills: 6 TRICOR 145 mg tablet Take 1 Tab by mouth daily with supper. Provider: Kaye Fernandez Quantity: 30 Tab Refills: 5 Generic drug: fenofibrate nanocrystallized TYLENOL 325 mg tablet Take 1-2 Tabs by mouth every 4 hours as needed for Pain. Refills: 0 Generic drug: acetaminophen zolpidem 10 mg tablet Commonly known as: AMBIEN TAKE 1 TABLET BY MOUTH AT BEDTIME NEEDED. Provider: Shahram Mccallum Quantity: 30 Tab Refills: 3 * Notice: !!Potential duplicate medications found. Review medication list car piter. Patient instructions: Activity: activity as tolerated. Diet: Regular Diet. Follow-up with Mary Moore MD in 7 day(s). Signed: Mary Moore MD 12/30/2013, 10:49 AM ER'S LICENSE REVIEWING OFFICER documented in this encounter Discharge Instructions * Instructions* Marissa Dorado RN - 12/28/2013 1. Call office, , for any questions. Office hours are 8 am to 5 pm Wednesday to , and 8 am to 12 noon on Wednesday. 2. Follow up with Dr. Moore in 7 days.Jan 04 at 1;30 3. Resume aspirin and Plavix on Wednesday. 4. May take Tylenol 325 mg to 650 mg every 6 hours as needed for mild pain. Colonoscopy Care After Surgery Please read the instructions outlined below and refer to this sheet in the next few weeks. These discharge instructions provide you with general information on caring for yourself after you leave the hospital. Your doctor may also give you specific instructions. While your treatment has been planned according to the mo st current medical practices available, unavoidable complications occasionally o ccur. If you have any problems or questions after discharge, please call your do ctor. ACTIVITY You may resume your regular activity, but move at a slower pace for the next 24 hours. Take frequent rest periods for the next 24 hours. Walking will help get rid of the air and reduce the bloated feeling in your a bdomen (belly). No driving for 24 hours (because of the anesthesia (medicine) used during the test). You may shower. Do not sign any important legal documents or operate any machinery for 24 karly rs (because of the anesthesia used during the test). NUTRITION Drink plenty of fluids. You may resume your normal diet as instructed by your doctor. Begin with a light meal and progress to your normal diet. Heavy or fried food s are harder to digest and may make you feel nauseated (sick to your stomach). Avoid alcoholic beverages for 24 hours or as instructed. MEDICATIONS You may resume your normal medications unless your doctor tells you otherwise . WHAT YOU CAN EXPECT TODAY Some feelings of bloating in the abdomen. Passage of more gas than usual. Spotting of blood in your stool or on the toilet paper. IF YOU HAD POLYPS REMOVED DURING THE COLONOSCOPY: No aspirin products for 7 days or as instructed. No alcohol for 7 days or as instructed. Eat a soft diet for the next 24 hours. FOLLOW-UP Your doctor will discuss the results of your test with you. CALL YOUR caregiver immediately if: There is more than a spotting of blood in your stool. There is abdominal distention (your abdomen is swollen). There is vomiting. You have a temperature over 101 F (38.3 C). There is abdominal pain or discomfort that is severe or gets worse throughout the day. ExitCare Patient Information 2006 [employer]. documented in this encounter Medications at Time of Discharge Start Date End Date Medication Sig Dispensed Refills 08/30/2012 blood sugar diagnostic In the am & 1 Package 0 (ACCU-CHEK ACTIVE TEST) pm prn Misc Strp 12/29/2007 BETIMOL 0.5 % OP Drop Administer 1 0 Drop in both eyes 2 times daily. 12/06/2013 01/09/2014 oxyCODONE-acetaminophen Take 1-2 Tabs 50 Tab 0 (PERCOCET) 5-325 mg by mouth tabletIndications: Back every 6 hours pain as needed for Pain, Moderate. 11/14/2013 08/16/2015 fluticasone (FLOVENT HFA) Take 1 [...] 11 100 unit/mL bedtime SolutionIndications: Diabetes mellitus 10/10/2013 04/14/2014 phenytoin sodium extended TAKE 2 90 Cap 5 release (DILANTIN) 100 mg CAPSULES BY capsule MOUTH EVERY MORNING AND ONE CAPSULE AT BEDTIME. 10/10/2013 01/12/2014 LORazepam (ATIVAN) 1 mg TAKE ONE 60 Tab 2 tablet TABLET BY MOUTH 2 TIMES A DAY. 10/03/2013 04/14/2014 FLUoxetine (PROZAC) 20 mg Take 2 Caps 60 Cap 5 capsule by mouth daily. 10/03/2013 02/02/2014 zolpidem (AMBIEN) 10 mg TAKE 1 TABLET 30 Tab 3 tablet BY MOUTH AT BEDTIME NEEDED. 08/22/2013 03/01/2014 TRICOR 145 mg Oral tablet Take 1 Tab by 30 Tab 5 mouth daily with supper. 01/03/2015 HYDROcodone-acetaminophen Take 1 Tab by 0 (NORCO) 5-325 mg Oral mouth every 4 tablet hours as needed for Pain. may take one or two tabs every 4 hours as needed for pain. 07/11/2013 07/11/2014 FLOMAX 0.4 mg Oral TAKE ONE 30 Cap 11 capsule CAPSULE BY MOUTH EVERY DAY 30 MINUTES AFTER SUPPER 06/22/2013 06/26/2014 OLANZapine (ZYPREXA) 2.5 Take 1 Tab by 30 Tab 11 mg Oral tablet mouth daily at bedtime. 05/09/2013 03/12/2014 simvastatin (ZOCOR) 40 mg TAKE ONE 60 Tab 6 Oral tablet TABLET (40MG) BY MOUTH EVERY DAY IN THE EVENING 05/09/2013 10/13/2014 ACTOS 30 mg Oral tablet Take 1 Tab by 30 Tab 11 mouth daily. 05/09/2013 10/17/[address] 1 Tab 25 Tab 0 Sublingual Subl under tongue every 5 minutes as needed for Chest Pain. 05/01/2013 03/09/2014 ramipril (ALTACE) 10 mg Take 1 Cap by 30 Cap 11 Oral capsule mouth daily. 03/21/2013 04/11/2014 clopidogrel (PLAVIX) 75 Take 1 Tab by 30 Tab 11 mg Oral Tab mouth daily. 02/28/2013 03/07/2014 loratadine (CLARITIN) 10 Take 1 Tab by 30 Tab 11 mg Oral tablet mouth daily. 11/27/2016 naproxen sodium 220 mg Take 440 mg 0 Oral Cap by mouth daily . 01/03/2013 01/12/2014 ezetimibe (ZETIA) 10 mg Take 1 Tab by 30 Tab 11 Oral tablet mouth daily at bedtime. 12/27/2012 01/11/2014 bethanechol (URECHOLINE) Take 1 Tab by 120 Tab 11 25 mg Oral tablet mouth 4 times daily. 12/27/2012 01/03/2014 isosorbide mononitrate SR Take 1 Tab by 60 Tab 11 24 hour (IMDUR) 60 mg mouth 2 times Oral tablet daily. 12/27/2012 01/03/2014 esomeprazole (NEXIUM) 40 Take 1 Cap by 30 Cap 11 mg Oral CpDR mouth daily before breakfast. 10/24/2012 01/03/2015 ibuprofen (MOTRIN) 800 mg Take 1 Tab by 90 Tab 3 Oral tablet mouth 3 times daily with meals. 12/06/2014 FLUoxetine (PROZAC) 20 mg Take by 0 Oral tablet mouth daily. take 2 capsules daily 09/10/2010 04/26/2018 MULTIVITAMIN PO Take 1 Tab by 0 mouth daily with lunch. documented as of this encounter H&P Notes * Mary Moore MD - 12/27/2013 4:54 PM DRIVER'S LICENSE REVIEWING OFFICER Subjective: Oliverio Tinsley is an 63 y.o. male who presents for repeat colonoscopy. Adeno matous polyp found in last colonoscopy, so due for repeat screening. Patient de nies abdominal pain, melena or hematochezia. Patient has seizure disorder and i s incapable of caring for himself to complete his bowel prep. Past Medical History Diagnosis Date Wrist sprain [...] 09/13 Hx surgical other 07/11 Colonoscopy Pr colonoscopy,diagnostic 02/01/2009 COLONOSCOPY performed by MARY MOORE at [facility] Hx hernia repair 1988 And age 4 Hx lap cholecystectomy 05/17/07 Hx coronary artery bypass graft Hx heart catheterization 04/10 With angioplasty, 2 stents Pr lap,appendectomy 05/28/2012 APPENDECTOMY LAPAROSCOPIC performed by Mary Moore MD at [facility] [place] Pr repair umbilical colleen,4+y/o,reduc 05/28/2012 HERNIA UMBILICAL REPAIR performed by Mary Moore MD at [facility] [place] Family History Problem Relation Age of [...] Refill oxyCODONE-acetaminophen (PERCOCET) 5-325 mg tablet Take 1-2 Tabs by mouth every 6 hours as needed for Pain, Moderate. 50 Tab 0 fluticasone (FLOVENT HFA) 110 mcg/actuation Aerosol Take 1 Puff by inhalat ion 2 times daily. 12 Gram 5 albuterol (PROAIR HFA) 90 mcg/Actuation HFA Aerosol Inhaler HFA inhaler Ta ke 2 Puffs by inhalation every 4 hours as needed for Shortness of Breath. 8.5 Gram 5 insulin glargine (LANTUS) 100 unit/mL Solution 40 units at bedtime 10 mL 11 phenytoin sodium extended release (DILANTIN) 100 mg capsule TAKE 2 CAPSULE S BY MOUTH EVERY MORNING AND ONE CAPSULE AT BEDTIME. 90 Cap 5 LORazepam (ATIVAN) 1 mg tablet TAKE ONE TABLET BY MOUTH 2 TIMES A DAY. 6 0 Tab 2 FLUoxetine (PROZAC) 20 mg capsule Take 2 Caps by mouth daily. 60 Cap 5 zolpidem (AMBIEN) 10 mg tablet TAKE 1 TABLET BY MOUTH AT BEDTIME NEEDED . 30 Tab 3 TRICOR 145 mg Oral tablet Take 1 Tab by mouth daily with supper. 30 Tab 5 HYDROcodone-acetaminophen (NORCO) 5-325 mg Oral tablet Take 1 Tab by mouth every 4 hours as needed for Pain. may take one or two tabs every 4 hours as nee ded for pain. FLOMAX 0.4 mg Oral capsule TAKE ONE CAPSULE BY MOUTH EVERY DAY 30 MINUTES AFTER SUPPER 30 Cap 11 OLANZapine (ZYPREXA) 2.5 mg Oral tablet Take 1 Tab by mouth daily at bedti me. 30 Tab 11 simvastatin (ZOCOR) 40 mg Oral tablet TAKE ONE TABLET (40MG) BY MOUTH EVER Y DAY IN THE EVENING 60 Tab 6 [...] Take 1 Tab by mouth daily. 30 Ta b 11 naproxen sodium 220 mg Oral Cap Take by mouth daily. 2 tablets daily ezetimibe (ZETIA) 10 mg Oral tablet Take 1 Tab by mouth daily at bedtime. 30 Tab 11 bethanechol (URECHOLINE) 25 mg Oral tablet Take 1 Tab by mouth 4 times conor ly. 120 Tab 11 isosorbide mononitrate SR 24 hour (IMDUR) 60 mg Oral tablet Take 1 Tab by mouth 2 times daily. 60 Tab 11 esomeprazole (NEXIUM) 40 mg Oral CpDR Take 1 Cap by mouth daily before latosha akfast. 30 Cap 11 ondansetron (ZOFRAN) 4 mg Oral Tab Take 1 Tab by mouth every 6 hours as ne eded for Nausea/Emesis. 15 Tab 0 ibuprofen (MOTRIN) 800 mg Oral tablet Take 1 Tab by mouth 3 times daily wi th meals. 90 Tab 3 FLUoxetine (PROZAC) 20 mg Oral tablet Take by mouth daily. take 2 capsule s daily blood sugar diagnostic (ACCU-CHEK ACTIVE TEST) [...] every 4 hours as needed for Pain. No current facility-administered medications for this visit. Allergies Allergen Reactions Codeine Unknown Doxycycline Rash Phenobarbital Weakness "relaxes me too much" Piperacillin-Tazobactam Hives and Rash Breaks out Terazosin Other (See Comments) Chest heaviness, chest pain Valium (Diazepam) Other (See Comments) "stops breathing, no pulse" History Social History Marital Status: Spouse Name: N/A Number of Children: N/A Years of Education: N/A Occupational History Disabled Social History Main Topics Smoking status: Former Smoker -- 4.00 packs/day for 40 years Types: Cigarettes Quit date: 03/08/1995 Smokeless tobacco: Never Used Alcohol Use: No Drug Use: No Sexually Active: Not Currently -- Female partner(s) Other Topics Concern Not on file Social History Narrative No narrative on file Review of Systems Pertinent positives noted in HPI. Remaining ROS negative and noncontributory. Objective: BP 132/74 | Temp(Src) 97.3 F (36.3 C) | Ht 5' 6" (1.676 m) | Wt 200 lb (90. 719 kg) | BMI 32.3 kg/m2 General: alert, in no distress Skin: Normal. Eyes: negative Mouth: MMM no lesions Lymph Nodes: Cervical, supraclavicular, and axillary nodes normal. Lungs: normal respiratory effort Heart: regular rate and rhythm Abdomen: Soft, non-tender. Bowel sounds normal. No masses, no organomegaly. CVA: absent Genitourinary: defer exam Extremities: extremities normal, atraumatic, no cyanosis or edema Neurologic: negative Psychiatric: non focal Results for orders placed during the hospital encounter of 12/09/13 (from the [facility] 336 hour(s)) XR RIBS UNILATERAL RIGHT W PA CHEST Collection Time 12/09/13 10:32 AM Narrative: PA chest with left ribs History: Chest [...] is a coronary artery stent in place. Impression: Impression: Normal chest with ribs. Assessment: Due for screening colonoscopy with history of adenomatous polyp. Will admit day before procedure for bowel prep. Plan: 1. Discussed the risk of colonoscopy including bleeding and perforation, and th e risks and reaction to anesthetic medications. The patient understands the risk s, any and all questions were answered to the patient's satisfaction. 2. Colonoscopy on 12/28/2013 under [facility]. 3. Admission on 12/27 for bowel prep. ER'S LICENSE REVIEWING OFFICER documented in this encounter Procedure Notes * David Ferrer MD - 12/28/2013 8:39 AM DRIVER'S LICENSE REVIEWING OFFICER Associated Order(s): EKG 12-LEAD [address] [place] [id number] Patient Name: OLIVERIO TINSLEY CSN: [id number] : 1950 Provider: David Bernard M.D. Admitted: 12/27/2013 ELECTROCARDIOGRAM DATE OF SERVICE: 12/27/2013 12/27/2013 at 1421. The rhythm is regular, sinus in origin with a rate of 62 beat s per minute. NM interval is prolonged. Electrical axis is leftward. T waves are flattened across the tracing. Minimal R waves are noted through V4 across the c hest. Compared with previous tracing dated May 03 2013, electrical axis has s hifted leftward currently. NM interval is longer on the current tracing. R waves are better seen in V4 previously. DIAGNOSIS: 1) Sinus rhythm, rate 62 beats per minute. 2) 1st degree AV block. 3) Leftward axis. 4) Nonspecific T wave flatten ing. 5) Slow R wave progression, anteroseptal chest leads, possibly due to lead placement. Anteroseptal wall myocardial infarct of undetermined age cannot be co mpletely ruled out. Dictated by: David Bernard M.D./MEDQ D: [id number] V: [id number] cc: MD Mary Thakkar M.D. ER'S LICENSE REVIEWING OFFICER documented in this encounter OR Notes * OR Anesthesia - Shahram Senior CRNA - 12/28/2013 10:10 AM DRIVER'S LICENSE REVIEWING OFFICER Post Anesthesia Evaluation Sign Out Vitals: BP 124/80 | Pulse 74 | Temp(Src) 96.9 F (36.1 C) (Tympanic) | Resp 16 | Ht 5' 6" (1.676 m) | SpO2 95% Pain Rating: Nausea/Vomiting: no nausea and no vomiting Post-Op hydration: well hydrated Respiratory function: no respiratory symptoms Airway patency: normal Cardiovascular function: Normal - Regular rate and rhythm Mental status, LOC: 0=alert; keenly responsive Eris Madden CRNA 12/28/2013; 10:10 AM ER'S LICENSE REVIEWING OFFICER * OR Anesthesia - Shahram Senior CRNA - 12/28/2013 8:35 AM DRIVER'S LICENSE REVIEWING OFFICER Patient in PACU. Respond ing verbally No nausea at this time vital signs stable ER'S LICENSE REVIEWING OFFICER * Operative Report - Mary Moore MD - 12/28/2013 8:31 AM DRIVER'S LICENSE REVIEWING OFFICER Colonoscopy Procedure Note Procedure: Colonoscopy --screening Pre-operative Diagnosis: screening for malignancy of colon and rectum, previous history of adenomatous polyp Post-operative Diagnosis: same, internal hemorrhoids, rectal polyps Indications: previous adenomatous polyp, screening for colon cancer Sedation: sedation per anesthesia Pre-Procedure Physical: Current Facility-Administered Medications Medication Dose Route Frequency Provider Last Rate Last Dose timolol (TIMOPTIC) 0.5 % ophthalmic solution 1 Drop 1 Drop Both Eyes BID Ho Mary renee MD acetaminophen (TYLENOL) tablet 650 mg 650 mg Oral q 4 hour PRN Daysi Moore MD ondansetron (ZOFRAN ODT) tablet 4 mg 4 mg Oral q 6 hour PRN Mary Moore MD 4 mg at 12/27/132104 bethanechol (URECHOLINE) tablet 25 mg 25 mg Oral QID Mary Moore MD 2 5 mg at 12/27/132057 isosorbide mononitrate SR 24 hour (IMDUR) tablet 60 mg 60 mg Oral BID Mary Moore MD 60 mg at 12/27/132058 esomeprazole (NEXIUM) capsule 40 mg 40 mg Oral AC Daily Breakfast Jimena Moore MD 40 mg at 12/27/131254 loratadine (CLARITIN) tablet 10 mg 10 mg Oral Daily Mary Moore MD 10 mg at 12/27/13 130 ramipril (ALTACE) capsule 10 mg 10 mg Oral Daily Mary Moore MD 10 mg at 12/27/131255 OLANZapine (ZYPREXA) tablet 2.5 mg 2.5 mg Oral Daily BEDTIME Mary Moore MD 2.5 mg at 12/27/132055 tamsulosin (FLOMAX) capsule 0.4 mg 0.4 mg Oral Daily Mary Moore MD 0 .4 mg at 12/27/131824 HYDROcodone-acetaminophen (NORCO) 5-325 mg per tablet 1 Tab 1 Tab Oral q 4 hour PRN Mary Moore MD FLUoxetine (PROZAC) capsule 40 mg 40 mg Oral Daily Mary Moore MD 40 mg at 12/27/13 130 phenytoin sodium extended release (DILANTIN) capsule 200 mg 200 mg Oral Conro ly Mary Moore MD 200 mg at 12/27/13 130 LORazepam (ATIVAN) tablet 1 mg 1 mg Oral BID Mary Moore MD 1 mg at 0 12/27/132056 fluticasone (FLOVENT HFA) 110 mcg/actuation inhaler 1 Puff 1 Puff Inhalatio n Resp BID Mary Moore MD albuterol 90 mcg/Actuation HFA inhaler 2 Puff 2 Puff Inhalation Resp q 4 h PRN Mary Moore MD oxyCODONE-acetaminophen (PERCOCET) 5-325 mg per tablet 1-2 Tab 1-2 Tab Oral q 6 hour PRN Mary Moore MD [COMPLETED] polyethylene glycol 3350 (MIRALAX) oral powder for solution 306 Gram 306 Gram Oral ONCE Mary Moore MD 306 Gram at 12/27/13 1317 [COMPLETED] bisacodyl delayed release (DULCOLAX) tablet 20 mg 20 mg Oral ON CE Mary Moore MD 20 mg at 12/27/13 1317 [COMPLETED] bisacodyl delayed release (DULCOLAX) tablet 10 mg 10 mg Oral ON CE Mary Moore MD 10 mg at 12/27/132104 phenytoin sodium extended release (DILANTIN) capsule 100 mg 100 mg Oral Conor ly BEDTIME Mary Moore MD 100 mg at 12/27/132057 nalOXone (NARCAN) 0.4 mg/mL injection 0.1 mg 0.1 mg IV See Admin Notes Mary Reilly MD lactated ringers solution IV Continuous Mary Moore MD 30 mL/hr at 1235 ondansetron (ZOFRAN) 4 mg/2 mL injection 4-8 mg 4-8 mg IV q 6 hour PRN Mary Reilly MD metoclopramide HCl (REGLAN) injection 10 mg 10 mg IV q 6 hour PRN Jimena Moore MD sodium chloride 0.9 % flush injection 3 mL 3 mL IV See Admin Notes Tiesha Moore MD [DISCONTINUED] ondansetron (ZOFRAN ODT) tablet 4 mg 4 mg Oral q 6 hour PRN Mary Moore MD Allergies: Codeine; Doxycycline; Phenobarbital; Piperacillin-tazobactam; Terazosin; and Flores ium BP 104/64 | Pulse 84 | Temp(Src) 97.3 F (36.3 C) (Tympanic) | Resp 22 | Ht 5 ' 6" (1.676 m) | SpO2 96% Airway: normal Heart: normal S1 and S2 Lungs: clear Abdomen: soft, nontender, normal bowel sounds Mental Status: awake and alert; oriented to person, place, and time Procedure Details Informed consent was obtained for the procedure, including monitored anesthesia care. Risks of perforation, hemorrhage, adverse drug reaction and aspiration we re discussed. The patient was placed in the left lateral decubitus position. Ba sed on the pre-procedure assessment, including review of the patient's medical h istory, medications, allergies, and review of systems, he had been deemed to be an appropriate candidate for monitored anesthesia care. A rectal examination was performed. The Olympus colonoscope was inserted into t he rectum and advanced under direct vision to the cecum, which was identified by the ileocecal valve. The quality of the colonic preparation was satisfactory. A careful inspection was made as the colonoscope was withdrawn, including a ret roflexed view of the rectum; findings and interventions are described below. Ap propriate photodocumentation was obtained. Findings: -hemorrhoids (internal), Small in size -polyp(s) - #1, 2 x 2 mm in size, Flat, the rectum, removed by cold biopsy and s ent for pathology Specimens: biopsies of polyps at rectum Complications: None; patient tolerated the procedure well. Impression: -See post-procedure diagnoses. Recommendations: -Await pathology., -Follow up with me. ER'S LICENSE REVIEWING OFFICER * OR Anesthesia - Shahram Senior CRNA - 12/28/2013 7:53 AM DRIVER'S LICENSE REVIEWING OFFICER Patient seen in OP> Chart reviewed and patient interviewed. Discussed general anesthesia with him and he agrees to proceed. ASA3 INCREASED RISK MAL2 ER'S LICENSE REVIEWING OFFICER documented in this encounter Plan of Treatment Not on filedocumented as of this encounter Procedures Comments Procedure Name Priority Date/Time Associated Diag nosis EKG 12-LEAD Routine 12/29/2013 1:39 PM DRIVER'S LICENSE REVIEWING OFFICER PATHOLOGY Routine 12/28/2013 8:19 AM DRIVER'S LICENSE REVIEWING OFFICER COLONOSCOPY 12/28/2013 7:40 AM DRIVER'S LICENSE REVIEWING OFFICER POC GLUCOSE Routine 12/27/2013 4:54 PM DRIVER'S LICENSE REVIEWING OFFICER CBC WITHOUT DIFFERENTIAL Routine 12/27/2013 1:40 PM DRIVER'S LICENSE REVIEWING OFFICER COMPREHENSIVE METABOLIC Routine 12/27/2013 PANEL 1:40 PM DRIVER'S LICENSE REVIEWING OFFICER POC GLUCOSE Routine 12/27/2013 12:01 PM DRIVER'S LICENSE REVIEWING OFFICER documented in this encounter Results * EKG 12-LEAD (12/29/2013 1:39 PM DRIVER'S LICENSE REVIEWING OFFICER) Narrative Performed At This result has an attachment that is n ot available. Transcriptions David Bernard MD - 12/28/2013 8:39 AM DRIVER'S LICENSE REVIEWING OFFICER [address] [place], [place] [address] Patient Name: OLIVERIO TINSLEY CSN: [id number] : 1950 Provider: David Bernard M.D. Admitted: 12/27/2013 ELECTROCARDIOGRAM DATE OF SERVICE: 12/27/2013 12/27/2013 at 1421. The rhythm is regular , sinus in origin with a rate of 62 beats per minute. NM interval is prolonged. Electrical axis is leftward. T waves are flattened across the tracing. Minimal R waves are noted through V4 across the chest. Compared with previous tracing dated May 03 2013, electrical axis has shifted leftward currently. NM interval is longer on the current tracing. R waves are better seen in V4 previously. DIAGNOSIS: 1) Sinus rhythm, rate 62 beats per minute. 2) 1st degree AV block. 3) Leftward axis. 4) Nonspecific T wave flattening. 5) Slow R wave progression, anteroseptal chest leads, possibly due to lead placement. Anteroseptal wall myocardial infarct of undetermined age cannot be completely ruled out. Dictated by: David Bernard M.D./MEDQ D: [id number] V: [id number] cc: MD Mary Thakkar M.D. * PATHOLOGY (12/28/2013 8:19 AM DRIVER'S LICENSE REVIEWING OFFICER) CASE REPORT Surgical Pathology Report [facility] Case: [id number] CONSULTANTS, ROLAND -------- Authorizing Provider: Mary Moore MD Ordering Provider: Mary Moore MD Ordering Location: [facility] Collected: 12/28/2013 8:19 AM Operating Room Pathologist: Keaton Anne MD Received: 12/28/2013 2:54 PM Signed Out: 12/29/2013 8:41 PM (Final) Specimen: , Rectal polyps. FINAL DIAGNOSIS Rectum, biopsies: [facility] Electronic ally 1. Hyperplastic polyp. PATHOLOGY signed by 2. Mucosal lymphoid CONSULTANTS, Phillip Moreno MD on 12/29/2013 CPT Code: 82387 at 8:41 PM ICD9 Code: 569.9, 569.89 OPERATIVE Colonoscopy. [facility] PROCEDURE PATHOLOGY CON[facility], ROLAND GROSS The specimen is received in [facility] DESCRIPTION formalin and consists of three PATHOL OGY 0.2 to 0.5 cm parsons-echeverria soft CONSULTANTROLAND Tracey tissue fragments entirely submitted. MICROSCOPIC Microscopic examination shows [facility] DESCRIPTION fragments of colonic mucosa. PATHOLOG Y Some tangential sectioning is CONSULTANTROLAND Tracey present. Vague lymphoid aggregates are sometimes seen in the lamina propria. One fragment shows crypts with serrated luminal borders and decreased numbers of goblet cells. There is no adenomatous epithelium or malignancy. Specimen Tissue specimen (specimen) Performing Organization Address [facility] Ph one Number [facility] CLIA# [id number] [place] [address] [facility] [address] [place] [address] PATHOLOGY CLIA# [id number] [place], [place] [address] [facility] [address] [place] [address] * POC GLUCOSE (12/27/2013 4:54 PM DRIVER'S LICENSE REVIEWING OFFICER) POC GLUCOSE 129 (H) 70 - 100 mg/dL [facility] [place] Specimen Capillary blood specimen (specimen) Performing Organization Address [facility] Ph one Number [facility] CLIA# [id number] [place], [place] [address] [address] LABORATORY SERVICES CLIA# [id number] [place] [address] - [place] [address] [facility] * COMPREHENSIVE METABOLIC PANEL (12/27/2013 1:40 PM DRIVER'S LICENSE REVIEWING OFFICER) [facility] SODIUM 138 134 - 145 mmol/L [facility] [place] POTASSIUM 4.0 3.5 - 5.1 mmol/L [facility] [place] CHLORIDE 104 98 - 107 mmol/L [facility] [place] CO2 26 22 - 31 mmol/L [facility] CALCIUM 8.8 8.5 - 10.1 mg/dL [facility] BUN 14 7 - 20 mg/dL [facility] CREATININE 0.70 0.67 - 1.17 mg/dL [facility] [place] GLUCOSE 201 (H) 70 - 100 mg/dL [facility] TOTAL PROTEIN 7.4 6.4 - 8.2 g/dL [facility] [place] ALBUMIN 3.7 3.4 - 5.0 g/dL [facility] BILIRUBIN TOTAL 0.2 <=1.1 mg/dL [facility] ALKALINE 108 40 - 136 U/L [facility] [place] AST 15 10 - 40 U/L [facility] [place] ALT 34 25 - 70 U/L [facility] [place] GFR >60 >=60 mL/min/1.73 sq [facility] Comment: meter LABORATORY eGFR has not been validated [facility] for use in the elderly (> 70 [...] result. GFR, >60 >=60 mL/min/1.73 sq [facility] Comment: meter LABORATORY eGFR has not been validated [facility] for use in the elderly (> [...] , please refer to the GFR result. Specimen Blood specimen (specimen) Performing Organization Address [facility] Ph one Number [facility] CLIA# [id number] [place] [address] [address] LABORATORY SERVICES CLIA# [id number] [place] [address] * CBC WITHOUT DIFFERENTIAL (12/27/2013 1:40 PM DRIVER'S LICENSE REVIEWING OFFICER) [facility] WBC 7.6 3.0 - 10.4 K/uL [facility] - [place] RBC 4.67 4.15 - 5.75 M/uL [facility] [place] HEMOGLOBIN 13.6 (L) 13.8 - 17.4 g/dL [facility] [place] HEMATOCRIT 39.6 38.6 - 49.4 % [facility] [place] MCV 84.8 79.0 - 100.0 fL [facility] [place] MCH 29.1 28.0 - 34.0 pg [facility] [place] MCHC 34.3 31.0 - 35.0 g/dL [facility] - [place] PLATELETS 338 148 - 408 K/uL [facility] [place] MPV 6.9 (L) 7.4 - 10.6 fL [facility] [place] RDW 14.4 (H) 12.1 - 14.1 % [facility] [place] Specimen Blood specimen (specimen) Performing Organization Address [facility] Ph one Number [facility] CLIA# [id number] [place] [address] - [place] [address] [place] [address] LABORATORY SERVICES CLIA# [id number] [place] [address] * POC GLUCOSE (12/27/2013 12:01 PM DRIVER'S LICENSE REVIEWING OFFICER) [facility] POC GLUCOSE 176 (H) 70 - 100 mg/dL [facility] [place] Specimen Capillary blood specimen (specimen) Performing Organization Address City/State/Zipcode Ph one Number [facility] CLIA# [id number] [place] [address] - [place] [address] [place] [address] LABORATORY SERVICES CLIA# [id number] [place] [address] - [address] documented in this encounter Visit Diagnoses Not on filedocumented in this encounter Administered Medications Action Date Dose Rate Site Medication Order MAR Action 12/28/2013 9:10 AM DRIVER'S LICENSE REVIEWING OFFICER 25 mg bethanechol (URECHOLINE) tablet 25 mg Given 25 mg, Oral, FOUR TIMES DAILY, First dose on Wed12/27/13 at 1300, Until Discontinued, Routine, Previous Med: bethanechol (URECHOLINE) 25 mg Oral tablet - Orig Sig - Take 1 Tab by mouth 4 times daily. , 25 mg Given 12/27/2013 8:58 PM DRIVER'S LICENSE REVIEWING OFFICER 25 mg Given 12/27/2013 6:23 PM DRIVER'S LICENSE REVIEWING OFFICER 12/27/2013 9:05 PM DRIVER'S LICENSE REVIEWING OFFICER 10 mg bisacodyl delayed release (DULCOLAX) Given tablet 10 mg 10 mg, Oral, ONE TIME ONLY, 1 dose, Wed12/27/13 at 2100, Routine 12/27/2013 1:17 PM DRIVER'S LICENSE REVIEWING OFFICER 20 mg bisacodyl delayed release (DULCOLAX) Given tablet 20 mg 20 mg, Oral, ONE TIME ONLY, 1 dose, Wed12/27/13 at 1200, Routine 12/28/2013 9:13 AM DRIVER'S LICENSE REVIEWING OFFICER 40 mg esomeprazole (NEXIUM) capsule 40 mg Given 40 mg, Oral, DAILY BEFORE BREAKFAST, First dose on Wed12/27/13 at 1200, Unti l Discontinued, Routine, Previous Med: esomeprazole (NEXIUM) 40 mg Oral CpDR - Orig Sig - Take 1 Cap by mouth daily before breakfast. , 40 mg Given 12/27/2013 12:55 PM DRIVER'S LICENSE REVIEWING OFFICER 12/28/2013 11:12 AM DRIVER'S LICENSE REVIEWING OFFICER 45 mcg Deltoid, Left flu vaccine ts 2012 (36 mos+)(PF) Given (FLUZONE,FLUARIX) 45 mcg/0.5 mL syringe 45 mcg 45 mcg (0.5 mL), IM, ONE TIME ONLY, 1 dose, [facility] 12/28/13 at 1030, Routine 12/28/2013 9:10 AM DRIVER'S LICENSE REVIEWING OFFICER 40 mg FLUoxetine (PROZAC) capsule 40 mg Given 40 mg, Oral, DAILY, First dose on Wed12/27/13 at 1130, Until Discontinued, Routine, Previous Med: FLUoxetine (PROZAC) 20 mg capsule - Orig Sig - Apolinar e 2 Caps by mouth daily., 40 mg Given 12/27/2013 1:03 PM DRIVER'S LICENSE REVIEWING OFFICER 12/28/2013 9:11 AM DRIVER'S LICENSE REVIEWING OFFICER 60 mg isosorbide mononitrate SR 24 hour Given (IMDUR) tablet 60 mg 60 mg, Oral, TWO TIMES DAILY, First dos e on Wed12/27/13 at 1200, Until Discontinued, Routine, Previous Med: isosorbide mononitrate SR 24 hour (IMDUR) 60 mg Oral tablet - Orig Sig - Take 1 Tab by mouth 2 times daily. , 60 mg Given 12/27/2013 8:59 PM DRIVER'S LICENSE REVIEWING OFFICER 60 mg Given 12/27/2013 12:55 PM DRIVER'S LICENSE REVIEWING OFFICER 12/27/2013 12:35 PM DRIVER'S LICENSE REVIEWING OFFICER 30 mL/hr lactated ringers solution New Bag IV, at 30 mL/hr, CONTINUOUS, Starting Wed12/27/13 at 1130, Until Wed12/28/13 at 1350, Routine 12/28/2013 9:10 AM DRIVER'S LICENSE REVIEWING OFFICER 10 mg loratadine (CLARITIN) tablet 10 mg Given 10 mg, Oral, DAILY, First dose on Wed12/27/13 at 1130, Until Discontinued, Routine, Previous Med: loratadine (CLARITIN) 10 mg Oral tablet - Orig Sig - Take 1 Tab by mouth daily. , 10 mg Given 12/27/2013 1:03 PM DRIVER'S LICENSE REVIEWING OFFICER 12/28/2013 9:12 AM DRIVER'S LICENSE REVIEWING OFFICER 1 mg LORazepam (ATIVAN) tablet 1 mg Given 1 mg, Oral, TWO TIMES DAILY, First dose on Wed12/27/13 at 1130, Until Discontinued, Routine, Previous Med: LORazepam (ATIVAN) 1 mg tablet - Orig Sig - TAKE ONE TABLET BY MOUTH 2 TIMES A DAY., 1 mg Given 12/27/2013 8:57 PM DRIVER'S LICENSE REVIEWING OFFICER 1 mg Given 12/27/2013 1:04 PM DRIVER'S LICENSE REVIEWING OFFICER 12/27/2013 8:56 PM DRIVER'S LICENSE REVIEWING OFFICER 2.5 mg OLANZapine (ZYPREXA) tablet 2.5 mg Given 2.5 mg, Oral, DAILY AT BEDTIME, First dose on Wed12/27/13 at 2100, Until Discontinued, Routine, Previous Med: OLANZapine (ZYPREXA) 2.5 mg Oral tablet - Orig Sig - Take 1 Tab by mouth daily at bedtime. , 12/27/2013 9:05 PM DRIVER'S LICENSE REVIEWING OFFICER 4 mg ondansetron (ZOFRAN ODT) tablet 4 mg Given 4 mg, Oral, EVERY 6 HOURS PRN, Starting Wed12/27/13 at 1119, Until Nancy 12/28/13 at 1350, Nausea/Emesis, Routine, Previous Med: ondansetron (ZOFRAN) 4 mg Oral Tab - Orig Sig - Take 1 Tab by mouth every 6 hours as needed for Nausea/Emesis. , 12/27/2013 8:58 PM DRIVER'S LICENSE REVIEWING OFFICER 100 mg phenytoin sodium extended release Given (DILANTIN) capsule 100 mg 100 mg, Oral, DAILY AT BEDTIME, First dose on Wed12/27/13 at 2100, Until Discontinued, Routine 12/28/2013 9:12 AM DRIVER'S LICENSE REVIEWING OFFICER 200 mg phenytoin sodium extended release Given (DILANTIN) capsule 200 mg 200 mg, Oral, DAILY, First dose on Wed12/27/13 at 1130, Until Discontinued, Routine, Previous Med: phenytoin sodium extended release (DILANTIN) 100 mg capsule - Orig Sig - TAKE 2 CAPSULES BY MOUTH EVERY MORNING AND ONE CAPSULE AT BEDTIME., 200 mg Given 12/27/2013 1:03 PM DRIVER'S LICENSE REVIEWING OFFICER 12/27/2013 1:17 PM DRIVER'S LICENSE REVIEWING OFFICER 306 Grams polyethylene glycol 3350 (MIRALAX) oral Given powder for solution 306 Gram 306 Gram, Oral, ONE TIME ONLY, 1 dose, Wed12/27/13 at 1300, Routine 12/27/2013 12:56 PM DRIVER'S LICENSE REVIEWING OFFICER 10 mg ramipril (ALTACE) capsule 10 mg Given 10 mg, Oral, DAILY, First dose on Wed12/27/13 at 1215, Until Discontinued, Routine, Previous Med: ramipril (ALTACE ) 10 mg Oral capsule - Orig Sig - Take 1 Cap by mouth daily. , 12/27/2013 6:25 PM DRIVER'S LICENSE REVIEWING OFFICER 0.4 mg tamsulosin (FLOMAX) capsule 0.4 mg Given 0.4 mg, Oral, DAILY, First dose on Wed12/27/13 at 1800, Until Discontinued, Routine, Previous Med: FLOMAX 0.4 mg Oral capsule - Orig Sig - TAKE ONE CAPSULE BY MOUTH EVERY DAY 30 MINUTES AFTER SUPPER, documented in this encounter
--- OUTSIDE RECORDS SUMMARY | 2020-03-24 14:16 | XMS REPORT | Encounter Summary ---
Author Author [facility] Organization [facility] Address Unknown Phone Unavailable Care Team Providers Care Teacher Counselor Name Role Phone Shahram Mccallum MD PCP Unavailable Reason for Visit * Reason Comments Medication Refill Encounter Details Care Team Description Date Type Department Shahram Mccallum MD NO ADDRESS ON FILE 04/14/2014 Refill [facility] [address] [phone] Social History Date Tobacco Use Types Packs/Day [...]
--- OUTSIDE RECORDS SUMMARY | 2020-03-24 14:16 | XMS REPORT | Encounter Summary ---
Author Author [facility] Organization [facility] Address Unknown Phone Unavailable Care Team Providers Care Pastor Name Role Phone Shahram Mccallum MD PCP Unavailable Reason for Visit * Reason Comments Medication Refill Encounter Details Care Team Description Date Type Department Shahram Mccallum MD NO ADDRESS ON FILE 03/12/2014 Refill [facility] Prim[facility] [address] [phone] Social History Date Tobacco Use Types Packs/Day [...]
--- OUTSIDE RECORDS SUMMARY | 2020-03-24 14:16 | XMS REPORT | Encounter Summary ---
Author Author [facility] Organization [facility] Address Unknown Phone Unavailable Care Team Providers Care Process Assistant Name Role Phone Shahram Mccallum MD PCP Unavailable Reason for Visit * Reason Comments Diabetes lab results Hypertension Cholesterol Problem Encounter Details Care Team Description Date Type Department Shahram Mccallum MD NO ADDRESS ON FILE Diabetes mellitus (Primary Dx); COPD (chronic obstructive pulmonary disease); LFT elevation; Hyperlipidemia; Unspecified essential hypertension; Hand pain, right; Knee pain, right; Toe pain, right 02/12/2014 Office Visit [facility]ar [address] [phone] Social History Date Tobacco Use Types Packs/Day [...] Reading Time Taken Comments Vital Sign 124/70 02/12/2014 9:02 AM CDT Blood Pressure 80 02/12/2014 9:02 AM CDT Pulse - - Temperature - - Respiratory Rate - - Oxygen Saturation - - Inhaled Oxygen Concentration 89.8 kg (198 lb) 02/12/2014 9:02 AM CDT Weight 165.1 cm (5' 5") 02/12/2014 9:02 AM CDT Height 32.95 02/12/2014 9:02 AM CDT Body Mass Index documented in this encounter Progress Notes * Shahram Mccallum MD - 02/12/2014 9:33 AM CDT Subjective: Oliverio Dalton is a 63 y.o. male. He is accompanied by nephew who is one of c aregilary. Patient Active Problem List Diagnosis Code Renal [...] behavior 300.9 Encounter for screening colonoscopy V76.51 Status post colonoscopy V45.89 Current Outpatient Prescriptions on File Prior to Visit Medication Sig Dispense Refill zolpidem (AMBIEN) 10 mg tablet TAKE 1 TABLET BY MOUTH AT BEDTIME NEEDED. LAST REFILLS PT MUST MAKE APPT 30 Tab 1 ZETIA 10 mg tablet Take 1 Tab by mouth daily at bedtime. 30 Tab 5 LORazepam (ATIVAN) 1 mg tablet TAKE ONE TABLET BY MOUTH 2 TIMES A DAY. 60 T ab 2 bethanechol (URECHOLINE) 25 mg tablet TAKE ONE TABLET BY MOUTH FOUR TIMES A DAY 120 Tab 2 oxyCODONE-acetaminophen (PERCOCET) 5-325 mg tablet Take 1-2 Tabs by mouth ev len 6 hours as needed for Pain, Moderate. 50 Tab 0 isosorbide mononitrate SR 24 hour (IMDUR) 60 [...] ONE CAPSULE AT BEDTIME. 90 Cap 5 FLUoxetine (PROZAC) 20 mg capsule Take 2 Caps by mouth daily. 60 Cap 5 TRICOR 145 mg Oral tablet Take 1 [...] visit. Lab Results Component Value Date/Time HGBA1C 7.6* 02/12/2014 8:27 AM HGBA1C 8.0* 10/12/2013 9:00 AM HGBA1C 7.1* 01/02/2013 9:50 AM MALBUR 32.2 08/15/2012 8:43 AM LDLCALC 85 02/12/2014 8:27 AM LDLDIRECT 125 12/10/2011 9:05 AM CREAT 0.85 02/12/2014 8:27 AM Lab Results Component Value Date/Time CHOLTOT [...] AM Lab Results Component Value Date/Time CREAT 0.85 02/12/2014 8:27 AM BUN 15 02/12/2014 8:27 AM NA 138 02/12/2014 8:27 AM K 4.2 02/12/2014 8:27 AM CL 102 02/12/2014 8:27 AM CO2 27 02/12/2014 8:27 AM GFR >60 02/12/2014 8:27 AM Lab Results Component Value Date/Time ALT 34 02/12/2014 8:27 AM AST 14 02/12/2014 8:27 AM ALKPHOS 116 02/12/2014 8:27 AM BILITOTAL 0.3 02/12/2014 8:27 AM Lab Results Component Value Date/Time INR 1.19* 02/06/2013 7:26 PM INR 1.12* 08/30/2012 1:20 PM INR 1.12* 08/09/2012 3:30 PM PT 12.6* 02/06/2013 7:26 PM PT 12.1* 08/30/2012 1:20 PM PT 12.1* 08/09/2012 3:30 PM HPI: Mr. Dalton complains of the following (by systems): Arthritis symptoms: diffuse arthralgias and barbara hand and knee pains. Bilat but L side is worse. Pain does limit some activity. No recent injury but hand is s/p remote fracture. Chest Pain symptoms: shortness of breath and occ non-specific chest pain. Not pr ogressive or predictable. COPD related symtoms: dyspnea, cough, wheezing, increased sputum and intermitten t Depression like symptoms: depressed mood, difficulty concentrating, fatigue, hop elessness, impaired memory, insomnia and overall better. Diabetes Type II complaints: medication compliance: noncompliant some of the t melvina, misses jimenez @ 3 x / week. He forgets HS dose and care givers are not the re to remind him at night., diabetic diet compliance: noncompliant some of the t melvina, home glucose monitoring: is performed sporadically Hypertension related symtoms/issues: taking medications as instructed, no side effects of medications, no chest pain on exertion, no dyspnea on exertion, no ed lian No complications related to lipids or lipid therapy. Review of Systems: MARA Has all of the following chronically and as above: Headache Dizziness Chest pain Shortness of breath Bowel changes Bladder changes Pain in muscle or joints Exam/Objective: Normal Exam for Routine Visits: \\Blood pressure 124/70, pulse 80, height 5' 5" ( 1.651 m), weight 198 lb (89.812 kg). General appearance:sl more healthy appearing, active, alert, cooperative, social , normally nourished, and in no acute distress Lungs: breath sounds equal, clear, diminished to auscultation bilaterally, no re tractions, no stridor, normal respiratory effort Heart: regular rate and rhythm, S1, S2 normal, no murmur, click, rub, gallop, or abnormal sounds. Abdomen: soft, non-tender. Bowel sounds normal. No masses, no organomegaly. Ac tive bowel sounds. Extremities: symmetrical non edematous. Tender knees, and palm R hand with thick ening tendon to 4th finger. No acute neuro changes. Assessment and Plan: ASSESSMENT: Encounter Diagnoses Name Primary? Diabetes mellitus Yes COPD (chronic obstructive pulmonary disease) LFT elevation Hyperlipidemia Unspecified essential hypertension Hand pain, right Knee pain, right Toe pain, right PLAN: Orders Placed This Encounter HEMOGLOBIN A1C (3 MONTHS X 1) BMP (3 MONTHS X 1) lantus to am dose since misses pm dose @ 3 days / week Overall diet better as evidenced with improved lipids so a1c increase probably p oor use of lantus. Stretch hands May need ortho opinion about knees No change in psyche meds Appropriate medications prescribed (see detailed AVS). Appropriate patient instructions provided (see detailed AVS). Follow-up as I have indicated. Medications and options explained to include common side effects. Understanding of medications, course, diagnosis, and expectations were expressed by patient/g uardian. documented in this encounter Plan of Treatment Not on filedocumented as of this encounter Results * BASIC METABOLIC PANEL (07/12/2014 11:43 AM CDT) [facility] Signature SODIUM 137 134 - 145 mmol/L [facility] [place] [facility] POTASSIUM 4.2 3.5 - 5.1 mmol/L [facility] CHLORIDE 103 98 - 107 mmol/L [facility] CO2 31 22 - 31 mmol/L [facility] CALCIUM 9.4 8.5 - 10.1 mg/dL [facility] [place] [facility] BUN 16 7 - 20 mg/dL [facility] [place] CREATININE 0.83 0.67 - 1.17 mg/dL [facility] [place] [facility] GLUCOSE 138 (H) 70 - 100 mg/dL [facility] [place] [facility] GFR >60 >=60 mL/min/1.[address] [facility] Comment: meter LABORATORY eGFR has not been validated [facility] - [facility] for use in the elderly (> [...] >60 >=60 mL/min/1.[address] [facility] VIET[place]ESE meter [facility] [place] ANION GAP 3 (L) 4 - [address] [facility] LABORATORY [facility] - [facility] FAYE Specimen Blood Performing Organization Address [facility] Ph one [facility] LABORATORY SERVICES CLIA# [id number] [place] [address] LABORATORY SERVICES CLIA# [id number] [place] [address] * HEMOGLOBIN A1C (07/12/2014 11:43 AM CDT) HEMOGLOBIN A1C 6.6 (H) 0.0 - 6.0 % [facility] [place] EST. AVG 143 mg/dL [facility] GLUCOSE, A1C LABORATORY SERVICES - [place] Specimen Blood Performing Organization Address [facility] one [facility] LABORATORY [facility] CLIA# [id number] [place] [address] LABORATORY SERVICES CLIA# [id number] [place] [address] documented in this encounter Visit Diagnoses Diagnosis Diabetes mellitus - Primary Type II or unspecified type diabetes me llitus without mention of complication, not stated as uncontrolled COPD (chronic obstructive pulmonary dis ease) Chronic airway obstruction, not elsewhe re classified LFT elevation Other abnormal blood chemistry Hyperlipidemia Other and unspecified hyperlipidemia Unspecified essential hypertension Hand pain, right Pain in limb Knee pain, right Pain in joint, lower leg Toe pain, right Pain in limb documented in this encounter
--- OUTSIDE RECORDS SUMMARY | 2020-03-24 14:16 | XMS REPORT | Encounter Summary ---
Author Author [facility] Organization [facility] Address Unknown Phone Unavailable Care Team Providers Care Drug Purchaser Name Role Phone Shahram Mccallum MD PCP Unavailable Reason for Visit * Reason Comments Medication Refill Encounter Details Care Team Description Date Type Department Shahram Mccallum MD NO ADDRESS ON FILE 03/07/2014 Refill [facility] Primar y Care [address] [phone] Social History Date Tobacco Use Types Packs/Day [...]
--- OUTSIDE RECORDS SUMMARY | 2020-03-24 14:16 | XMS REPORT | Encounter Summary ---
Author Author [facility] Organization [facility] Address Unknown Phone Unavailable Care Team Providers Care Dike Supervisor Name Role Phone Shahram Mccallum MD PCP Unavailable Encounter Details Care Team Description Date Type Department Shahram Mccallum MD NO ADDRESS ON FILE Ftsc, Outpt Lab 02/12/2014 [facility] Outpatient Encounter Laboratory [address] [phone] Social History Date Tobacco Use [...] Drop in both eyes 2 times daily. 02/02/2014 04/11/2014 zolpidem (AMBIEN) 10 mg TAKE 1 TABLET 30 Tab 1 tablet BY MOUTH AT BEDTIME NEEDED. LAST REFILLS PT MUST MAKE APPT 01/12/2014 07/13/2014 ZETIA 10 mg tablet Take 1 Tab by 30 Tab 5 mouth daily at bedtime. 01/12/2014 04/16/2014 LORazepam (ATIVAN) 1 mg TAKE ONE 60 Tab 2 tablet TABLET BY MOUTH 2 TIMES A DAY. 01/11/2014 04/11/2014 bethanechol (URECHOLINE) TAKE ONE 120 Tab 2 25 mg tablet TABLET BY MOUTH FOUR TIMES A DAY 01/09/2014 05/04/2014 oxyCODONE-acetaminophen Take 1-2 Tabs 50 Tab 0 (PERCOCET) 5-325 mg by mouth tabletIndications: Back every 6 hours pain as needed for Pain, Moderate. 01/03/2014 06/29/2014 isosorbide mononitrate SR TAKE ONE 60 Tab 5 24 hour (IMDUR) 60 mg TABLET BY tablet MOUTH 2 TIMES A DAY 01/03/2014 06/26/2014 NEXIUM 40 mg Capsule, Take 1 Cap by 30 Cap 5 Delayed Release(E.C.) mouth daily before breakfast. 11/14/2013 08/16/2015 fluticasone (FLOVENT HFA) Take 1 [...] EVERY MORNING AND ONE CAPSULE AT BEDTIME. 10/03/2013 04/14/2014 FLUoxetine (PROZAC) 20 mg Take 2 Caps 60 Cap 5 capsule by mouth daily. 08/22/2013 03/01/2014 TRICOR 145 mg Oral tablet [...] Date/Time Associated Diag nosis HEMOGLOBIN A1C Stat 02/12/2014 [facility] AM CDT LIPID PANEL Stat 02/12/2014 [facility] 8:27 AM CDT COMPREHENSIVE METABOLIC Stat 02/12/2014 Diabet es mellitus PANEL 8:27 AM CDT documented in this encounter Results * HEMOGLOBIN A1C (02/12/2014 8:27 AM CDT) HEMOGLOBIN A1C 7.6 (H) 0.0 - 6.0 % [facility] [place] EST. AVG 171 mg/dL [facility] GLUCOSE, A1C LABORATORY [facility] - [place] Specimen Blood specimen (specimen) Performing Organization Address City/State/Zipcode Ph one Number [facility] CLIA# [id number] [place] [address] [address] LABORATORY SERVICES CLIA# [id number] [place] [address] - [address] * LIPID PANEL (02/12/2014 8:27 AM CDT) CHOLESTEROL 176 mg/dL [facility] [place] TRIGLYCERIDE 212 mg/dL [facility] [place] HDL 49 mg/dL [facility] [place] LDL CALCULATED 85 <=130 mg/dL [facility] [place] Specimen Blood specimen (specimen) Narrative Performed At TOTAL CHOLESTEROL mg/dL [facility] LABORATORY Desirable <200 SERVICES - [facility] Borderline high 200-239 [place] High >=240 TRIGLYCERIDES mg/dL Normal <150 Borderline high 150-199 High 200-499 Very high >=500 HDL CHOLESTEROL mg/dL Low <40 Normal 40-60 Desirable >60 LDL CHOLESTEROL mg/dL Optimal <100 Low risk 100-129 Borderline high 130-159 High 160-189 Very high >=190 Based on AHA/NCEP Guidelines Performing Organization Address City/State/[facility] Ph one Number [facility] CLIA# [id number] [place] [address] [address] LABORATORY SERVICES CLIA# [id number] [place] [address] [address] * COMPREHENSIVE METABOLIC PANEL (02/12/2014 8:27 AM CDT) SODIUM 138 134 - 145 mmol/L [facility] [place] POTASSIUM 4.2 3.5 - 5.1 mmol/L [facility] [place] CHLORIDE 102 98 - 107 mmol/L [facility] [place] CO2 27 22 - 31 mmol/L [facility] [place] CALCIUM 9.0 8.5 - 10.1 mg/dL [facility] [place] BUN 15 7 - 20 mg/dL [facility] [place] CREATININE 0.85 0.67 - 1.17 mg/dL [facility] [place] GLUCOSE 194 (H) 70 - 100 mg/dL [facility] [place] TOTAL PROTEIN 7.6 6.4 - 8.2 g/dL [facility] [place] ALBUMIN 3.8 3.4 - 5.0 g/dL [facility] [place] BILIRUBIN TOTAL 0.3 <=1.1 mg/dL [facility] [place] ALKALINE 116 40 - 136 U/L [facility] PHOSPHATASE [facility] [place] AST 14 10 - 40 U/L [facility] [place] ALT 34 25 - 70 U/L [facility] [place] GFR >60 >=60 mL/min/1.73 sq [facility] Comment: meter LABORATORY eGFR has not been validated [facility] for use in the elderly [...] GFR result. GFR, >60 >=60 mL/min/1.73 sq [facility] [place] meter [facility] [place] Specimen Blood specimen (specimen) Performing Organization Address City/State/Zipcode Ph one Number [facility] CLIA# [id number] [place] [address] [place] [address] LABORATORY SERVICES CLIA# [id number] [place] [address] [address] documented in this encounter Visit Diagnoses Diagnosis Diabetes mellitus Type II or unspecified type diabetes me llitus without mention of complication, not stated as uncontrolled documented in this encounter
--- OUTSIDE RECORDS SUMMARY | 2020-03-24 14:16 | XMS REPORT | Encounter Summary ---
Author Author [facility] Organization [facility] Address Unknown Phone Unavailable Care Team Providers Care Hand Marker Name Role Phone Shahram Mccallum MD PCP Unavailable Reason for Visit * Reason Comments Medication Refill Encounter Details Care Team Description Date Type Department Shahram Mccallum MD NO ADDRESS ON FILE 04/16/2014 Refill [facility] Primar y Care [address] [phone] Social History Date Tobacco Use Types Packs/Day [...]
--- OUTSIDE RECORDS SUMMARY | 2020-03-24 14:16 | XMS REPORT | Encounter Summary ---
Author Author [facility] Organization [facility] Address Unknown Phone Unavailable Care Team Providers Care Collator Name Role Phone Shahram Mccallum MD PCP Unavailable Reason for Visit * Reason Comments Medication Refill Encounter Details Care Team Description Date Type Department Jada Fernandez MD NO ADDRESS ON FILE 03/01/2014 Refill [facility] Primar y Care [address] [phone] Social History Date Tobacco Use Types Packs/Day [...]
--- OUTSIDE RECORDS SUMMARY | 2020-03-24 14:17 | XMS REPORT | Encounter Summary ---
Author Author [facility] Organization [facility] Address Unknown Phone Unavailable Care Team Providers Care Archery Equipment Repairer Name Role Phone Shahram Mccallum MD PCP Unavailable Encounter Details Care Team Description Date Type Department Anais Ray RN SN - HOME VISIT 11/14/2013 [facility] [address] [place] [address] Social History Date Tobacco Use [...] Diagnoses Not on filedocumented in this encounter Home Health Visit - Care Plan Visit Type - SN - HOME VISIT Discipline - Fpc Status Goals Interventions Problem Descriptio Start Date n Active - 1 problem intervention scheduled/documented in this visit Failure to Comply With Behaviors 12/05/2012 Plan of Care of Disciplines: patient/ca Fpc regiver that do not follow the plan of care. Active - 2 problem interventions scheduled/documented in this visit Home Safety Home 12/05/2012 Disciplines: safety Fpc Active - 1 problem intervention scheduled/documented in this visit Medications Management 12/05/2012 Disciplines: of home Fpc medication s Active - 2 problem interventions scheduled/documented in this visit Medications Management 04/29/2013 Disciplines: of home Fpc medication s Active - 1 problem intervention scheduled/documented in this visit Pulse Oximetry Skilled 12/05/2012 Disciplines: assessment Fpc and monitoring of O2 saturation s. Active - 1 problem intervention scheduled/documented in this visit Skilled Observation and Skilled 12/05/2012 Assessment nursing Disciplines: observatio Fpc n and assessment . Variance Visit Notes Intervention Associated Status Problem/Go al Instruct treatment Problem: Completed regimen Failure to Description: Comply Instruct Patient on the With Plan prescribed treatment of Care regimen, risks/ negative implications related to not complying with physician's orders, and strategies to assist with compliance. Instruct home safety Problem: Completed Description: Home Instruct on safe use of Safety equipment, transfer techiniques, and home modifications. Skilled assessment risk Problem: Completed for injury Home Description: Safety Assess patient's sensory perception, ability for ambulation and movement, disorientation or changes in mentation. Assess the home environment for potential hazards. Monitor ongoing for changes to patient Fall Risk Assessment. Medication box Problem: Completed Description: Medication SN to fill medication box s every Wednesday. SN to instruct Patient and Caregiver and monitor for proper filling and administration. Instruct medications Problem: Completed Description: Medication Instruct Patient in s medication administration, purpose, dosages, preparation, scheduling, side effects, food/drug interactions, and potential complications. Review medications each visit and update patient's copy of medication list as needed. Assess and instruct nebulizer and/or inhaler technique, as applicable. Evaluate the effectiveness of the current treatment regimen and notify physician for the need for changes in the plan of care. Skilled assessment Problem: Completed medications Medication Description: [...] perform general Assessment assessment to include vital signs, and temperature; General assessment of systems: pulmonary, cardiovascular, endocrine and integumentary and report any abnormalities or concerns to the physician. documented in this encounter Home Health Visit - Actions and Narratives Med supply planner filled, gen assessment, pt safety instruction. assessed c/o foot pain. Denies injury with recent fall 11/13. documented in this encounter
--- OUTSIDE RECORDS SUMMARY | 2020-03-24 14:17 | XMS REPORT | Encounter Summary ---
Author Author [facility] Organization [facility] Address Unknown Phone Unavailable Care Team Providers Care Manager Disaster Recovery Name Role Phone Shahram Mccallum MD PCP Unavailable Reason for Visit * Reason Comments Medication Refill Encounter Details Care Team Description Date Type Department Shahram Mccallum MD NO ADDRESS ON FILE 11/14/2013 Refill [facility] Primar y Care [address] [phone] Social History Date Tobacco Use Types Packs/Day [...]
--- OUTSIDE RECORDS SUMMARY | 2020-03-24 14:17 | XMS REPORT | Encounter Summary ---
Author Author [facility] Organization [facility] Address Unknown Phone Unavailable Care Team Providers Care Environmental Issues Instructor Name Role Phone Shahram Mccallum MD PCP Unavailable Reason for Visit * Reason Comments Follow Up due repeat 5 year colonosco py Encounter Details Care Team Description Date Type Department Beulah Zhou MD NO ADDRESS ON FILE Tubular adenoma (Primary Dx); Special screening for malignant neoplasms, colon 12/21/2013 Office Visit [address] [phone] Social History Date Tobacco Use [...] Signs Reading Time Taken Comments Vital Sign 132/74 12/21/2013 2:29 PM BIO MEDICAL TECHNICIAN Blood Pressure - - Pulse 36.3 C (97.3 F) 12/21/2013 2:29 PM BIO MEDICAL TECHNICIAN Temperature - - Respiratory Rate - - Oxygen Saturation - - Inhaled Oxygen Concentration 90.7 kg (200 lb) 12/21/2013 2:29 PM BIO MEDICAL TECHNICIAN Weight 167.6 cm (5' 6") 12/21/2013 2:29 PM BIO MEDICAL TECHNICIAN Height 32.28 12/21/2013 2:29 PM BIO MEDICAL TECHNICIAN Body Mass Index documented in this encounter Progress Notes * Beulah Zhou MD - 12/22/2013 5:03 PM BIO MEDICAL TECHNICIAN Subjective: Oliverio Dalton is an 63 y.o. male who presents [...] Colonoscopy Pr colonoscopy,diagnostic 02/01/2009 COLONOSCOPY performed by BEULAH ZHOU at [facility] OR Hx hernia repair 1988 And age 4 Hx lap cholecystectomy 05/17/07 Hx coronary artery bypass graft Hx heart catheterization 04/10 With angioplasty, 2 stents Pr lap,appendectomy 05/28/2012 APPENDECTOMY LAPAROSCOPIC performed by Beulah Zhou MD at [facility] OR Pr repair umbilical colleen,4+y/o,reduc 05/28/2012 HERNIA UMBILICAL REPAIR performed by Beulah Zhou MD at [facility] OR Family History [...] 4 times daily . 120 Tab 11 isosorbide mononitrate SR 24 hour (IMDUR) 60 mg Oral tablet Take 1 Tab by mo uth 2 times daily. 60 Tab 11 esomeprazole (NEXIUM) 40 mg Oral CpDR Take 1 Cap by mouth daily before break fast. 30 Cap 11 ondansetron (ZOFRAN) 4 mg [...] for P ain. No current facility-administered medications for this visit. [...] the hospital encounter of 12/09/13 (from the [facility] 336 hour(s)) XR RIBS UNILATERAL RIGHT W [...] 3. Admission on 12/27 for bowel prep. MEDICAL TECHNICIAN documented in this encounter Plan of Treatment Not on filedocumented as of this encounter Visit Diagnoses Diagnosis Tubular adenoma - Primary Benign neoplasm of unspecified site Special screening for malignant neoplas ms, colon documented in this encounter
--- OUTSIDE RECORDS SUMMARY | 2020-03-24 14:17 | XMS REPORT | Encounter Summary ---
Author Author [facility] Organization [facility] Address Unknown Phone Unavailable Care Team Providers Care Top Lift Cutter Name Role Phone Shahram Mccallum MD PCP Unavailable Reason for Visit * Reason Comments Medication Refill Encounter Details Care Team Description Date Type Department Shahram Mccallum MD NO ADDRESS ON FILE Back pain (Primary Dx) 12/06/2013 Refill [facility] Primar Care [address] [phone] Social History Date Tobacco Use Types Packs/Day [...]
--- OUTSIDE RECORDS SUMMARY | 2020-03-24 14:17 | XMS REPORT | Encounter Summary ---
Author Author [facility] Organization [facility] Address Unknown Phone Unavailable Care Team Providers Care Lumber Sorter Machine Name Role Phone Shahram Mccallum MD PCP Unavailable Encounter Details Care Team Description Date Type Department Anais Ray RN SN - HOME VISIT 11/07/2013 [facility] [address] [place] [address] Social History Date Tobacco Use [...] 12/05/2012 Plan of Care of Disciplines: patient/ca Residential regiver that do not follow the plan of care. Active - 2 problem interventions scheduled/documented in this visit Home Safety Home 12/05/2012 Disciplines: safety Residential Active - 1 problem intervention scheduled/documented in this visit Medications Management 12/05/2012 Disciplines: of home Residential medication s Active - 2 problem interventions scheduled/documented in this visit Medications Management 04/29/2013 Disciplines: of home Residential medication s Active - 1 problem intervention scheduled/documented in this visit Pulse Oximetry Skilled 12/05/2012 Disciplines: assessment Residential and monitoring of O2 saturation s. Active - 2 problem interventions scheduled/documented in this visit Skilled Observation and Skilled 12/05/2012 Assessment nursing Disciplines: observatio Residential n and [...] plan. Skilled observation and Problem: Completed assessment for response Skilled to treatment Observatio Description: n and Skilled observation and Assessment assessment of patient's response to interventions and meds, change in treatment plan, and for s/s of complications. Skilled observation and Problem: Completed assessment general Skilled assessment Observatio Description: n and SN to perform general Assessment assessment to include vital signs, and temperature; General assessment of systems: pulmonary, cardiovascular, endocrine and integumentary and report any abnormalities or concerns to the physician. documented in this encounter Home Health Visit - Actions and Narratives med operations planner set up with instructions fo r filling operations planner with meds that are not available in home yet. Rx refills called in. General asse ssment. documented in this encounter
--- OUTSIDE RECORDS SUMMARY | 2020-03-24 14:17 | XMS REPORT | Encounter Summary ---
Author Author [facility] Organization [facility] Address Unknown Phone Unavailable Care Team Providers Care Labor Conciliator Name Role Phone Shahram Mccallum MD PCP Unavailable Reason for Visit * Reason Comments Jaw Pain right side of jaw by the lo wer ear lobe. Rib Pain right upper side by the axi llary area. Encounter Details Care Team Description Date Type Department Kentrell Severino MD NO ADDRESS ON FILE Fall (Primary Dx); Contusion of ribs 12/09/2013 Emergency [facility] Emergency Department [address] [id number] Social History Date Tobacco Use Types Packs/Day [...] Signs Reading Time Taken Comments Vital Sign 129/70 12/09/2013 10:18 AM AGRICULTURE INSPECTOR Blood Pressure 90 12/09/2013 10:18 AM AGRICULTURE INSPECTOR Pulse 36.2 C (97.2 F) 12/09/2013 10:18 AM AGRICULTURE INSPECTOR Temperature 16 12/09/2013 10:18 AM AGRICULTURE INSPECTOR Respiratory Rate 96% 12/09/2013 10:18 AM AGRICULTURE INSPECTOR Oxygen Saturation - - Inhaled Oxygen Concentration 90.7 kg (200 lb) 12/09/2013 10:18 AM AGRICULTURE INSPECTOR Weight 167.6 cm (5' 6") 12/09/2013 10:18 AM AGRICULTURE INSPECTOR Height 32.28 12/09/2013 10:18 AM AGRICULTURE INSPECTOR Body Mass Index documented in this encounter [...] as of this encounter ED Notes * Kentrell Severino MD - 12/09/2013 10:22 AM AGRICULTURE INSPECTOR HISTORY OF PRESENT ILLNESS Oliverio Dalton, a 63 y.o. male presents to the ED with a Chief Complaint of Ja w Pain and Rib Pain Was spreading salt on the ice on his porch and fell thru the railing onto the gr ound. No head injury. Complaint of pain in right chest wall, cut his thumb and b ruised his right jaw. Was able to get up on his own but came by EMS The history is provided by the patient. The patient arrived by EMS. The patien t arrived from home. Jaw Pain This is a new problem. The current episode started less than 1 hour ago. The pro blem occurs constantly. The problem has not changed since onset.Associated sympt oms include chest pain (hurts in upper right ribs from the fall.). Pertinent neg atives include no abdominal pain, no headaches and no shortness of breath. Nothi ng (as able to get up off the ground and walk. hurts in right upper chest and te nder area on right jaw) aggravates the symptoms. Nothing relieves the symptoms. He has tried nothing for the symptoms. Rib Pain Associated symptoms include chest pain (hurts in upper right ribs from the fall. ). Pertinent negatives include no abdominal pain, no headaches and no shortness of breath. REVIEW OF SYSTEMS Review of Systems Constitutional: Negative for fever and chills. Respiratory: Negative for chest tightness and shortness of breath. Cardiovascular: Positive for chest pain (hurts in upper right ribs from the fall .). Gastrointestinal: Negative for nausea, vomiting and abdominal pain. Neurological: Negative for headaches. PAST MEDICAL HISTORY REVIEWED MEDICAL Patient has [...] pass graft; heart catheterization (04/10); lap,appendectomy (05/28/2012); and repa ir umbilical colleen,4+y/o,reduc (05/28/2012). FAMILY Patient's family history includes Asthma in his mother and sister; Diabetes in h is mother and sister; Healthy in his daughters and sons; Heart Disease in his si ster and son; Lung Cancer in his brother; Other in his father, mother, and siste r; Respiratory Disease in his mother and sister; and Seizures in his brother. SOCIAL reports that he quit smoking about 18 years ago. His smoking use included Cigar ettes. He has a 160 pack-year smoking history. He has never used smokeless tobac co. He reports that he does not currently engage in sexual activity. He reports that he does not drink alcohol or use illicit drugs. PROBLEM LIST Patient has Renal stone; Unspecified essential hypertension; BPH w/o Urinary Obs /LUTS; Neurogenic bladder, NOS; Unspecified Glaucoma; Bipolar Disorder, Unspecif ied; Hyperlipidemia; Tubular Adenoma; MRSA (methicillin resistant staph aureus) culture positive; Status post laparoscopic appendectomy; Umbilical hernia withou t mention of obstruction or gangrene; Abdominal pain, suprapubic; Bradycardia; B ack pain; Urinary retention; LFT elevation; Osteoarthritis of right knee; Carpal tunnel syndrome; Diabetes mellitus; CAD (coronary artery disease); COPD (chronic obstructive pulmonary disease); Seizure disorder; Depression; and Suicidal beh avior on his problem list. ALLERGIES Codeine; Doxycycline; Phenobarbital; Piperacillin-tazobactam; Terazosin; and Flores ium HOME MEDICATIONS Patient's Home Medications Current Home Medications ACTOS 30 MG ORAL TABLET AEROBID IN ALBUTEROL (PROAIR HFA) 90 MCG/ACTUATION HFA AEROSOL INHALER HFA INHALER ALBUTEROL IN ASPIRIN EC 81 MG ORAL TBEC BETHANECHOL (URECHOLINE) 25 MG ORAL TABLET BETIMOL 0.5 % OP DROP BLOOD SUGAR DIAGNOSTIC (ACCU-CHEK ACTIVE TEST) MISC STRP CLOPIDOGREL (PLAVIX) 75 MG ORAL TAB ESOMEPRAZOLE (NEXIUM) 40 MG ORAL CPDR EZETIMIBE (ZETIA) 10 MG ORAL TABLET FLOMAX 0.4 MG ORAL CAPSULE FLUOXETINE (PROZAC) 20 MG CAPSULE FLUOXETINE (PROZAC) 20 MG ORAL TABLET FLUTICASONE (FLOVENT HFA) 110 MCG/ACTUATION AEROSOL HYDROCODONE-ACETAMINOPHEN (NORCO) 5-325 MG ORAL TABLET IBUPROFEN (MOTRIN) 800 MG ORAL TABLET INSULIN GLARGINE (LANTUS) 100 UNIT/ML SOLUTION ISOSORBIDE MONONITRATE SR 24 HOUR (IMDUR) 60 MG ORAL TABLET LORATADINE (CLARITIN) 10 MG ORAL TABLET LORAZEPAM (ATIVAN) 1 MG TABLET MAGNESIUM OXIDE 250 MG ORAL TAB MULTIVITAMIN PO NAPROXEN SODIUM 220 MG ORAL CAP NITROSTAT 0.4 MG SUBLINGUAL SUBL OLANZAPINE (ZYPREXA) 2.5 MG ORAL TABLET ONDANSETRON (ZOFRAN) 4 MG ORAL TAB OXYCODONE-ACETAMINOPHEN (PERCOCET) 5-325 MG TABLET PHENYTOIN SODIUM EXTENDED RELEASE (DILANTIN) 100 MG CAPSULE RAMIPRIL (ALTACE) 10 MG ORAL CAPSULE SIMVASTATIN (ZOCOR) 40 MG ORAL TABLET TRICOR 145 MG ORAL TABLET TYLENOL 325 MG ORAL TAB ZOLPIDEM (AMBIEN) 10 MG TABLET Medications Modified during this Encounter Medications Discontinued during this Encounter PHYSICAL EXAM INITIAL VS BP: 129/70 mmHg (12/09/13 101), Heart Rate (Monitored): (not recorded), Resp: 1 6 (12/09/13 101), Temp: 97.2 F (36.2 C) (12/09/13 1018), Temp src: Tympanic (12/09/13 1018), SpO2: 96 % (12/09/13 1018), Height: 5' 6" (167.6 cm) (12/09/13 1018), Weight: 90.719 kg (12/09/13 1018), BMI (Calculated): 32.35 (12/09/13 101 8) No LMP for male patient. Physical [...] range of motion. He exhibits no edema. Small skin tear to right thumb. No sutures needed has full motion Lymphadenopathy: He has no cervical adenopathy. Neurological: He is alert and oriented to person, place, and time. No cranial ne rve deficit. Skin: Skin is warm and dry. No rash noted. Psychiatric: He has a normal mood and affect. His behavior is normal. DIAGNOSTICS LAB: RADIOLOGY: XR RIBS UNILATERAL RIGHT W ROLAND CHEST ED Interpretation: No fracture EKG: PROCEDURES Procedures MEDICAL DECISION MAKING AND PLAN OF CARE REEVALUATION CASE DISCUSSED . New Prescriptions for this Encounter LAST VITALS BP: 129/70 mmHg (12/09/13 1018), Heart Rate (Monitored): (not recorded), Resp: 1 6 (12/09/13 1018), Temp: 97.2 F (36.2 C) (12/09/13 1018), Temp src: Tympanic (12/09/13 1018), SpO2: 96 % (12/09/13 1018) CLINICAL IMPRESSION Final diagnoses: Fall Contusion of ribs CODING Coding DISPOSITION, EDUCATION AND MEDICATION RECONCILIATION Medications reconciled. See after visit summary for patient education on discha rged patients. Will xray right ribs. bandaid dressing for thumb skin tear. Xrays reassuring. Ok to go home. CULTURE INSPECTOR documented in this encounter Plan of Treatment Not on filedocumented as of this encounter Procedures Comments Procedure Name Priority Date/Time Associated Diag nosis XR RIBS UNILATERAL RIGHT Stat 12/09/2013 W PA CHEST 10:32 AM AGRICULTURE INSPECTOR documented in this encounter Results * XR RIBS UNILATERAL RIGHT W PA CHEST (12/09/2013 10:32 AM AGRICULTURE INSPECTOR) Specimen Impressions Performed At Impression: Normal chest with ribs. INTERFACE SYST EM Narrative Performed At PA chest with left ribs INTERFACE SYSTEM History: Chest pain. COMPARISON: May 03, 2013 PA chest with 4 views of left ribs are obtained. Findings: The cardiac silhouette and pulmonary vascularity are normal. No infiltrates or masses seen . There is no evidence of pneumothorax. Rib films do not demons trate any fractures or bony masses. The patient is status post medi an sternotomy for apparent CABG. There is a coronary artery stent in place. Procedure Note Interface, [facility] [place] [facility] In[place] Radiology Results - 12/11/2013 10:01 AM AGRICULTURE INSPECTOR PA chest with left ribs History: Chest [...] is a coronary artery stent in place. IMPRESSION Impression: Normal chest with ribs. Performing Organization Address City/State/Zipcode Ph one Number INTERFACE SYSTEM INTERFACE SYSTEM Refer to clinic/hospital department documented in this encounter Visit Diagnoses Diagnosis Fall - Primary Unspecified fall Contusion of ribs Contusion of chest wall documented in this encounter
--- OUTSIDE RECORDS SUMMARY | 2020-03-24 14:17 | XMS REPORT | Encounter Summary ---
Author Author [facility] Organization [facility] Address Unknown Phone Unavailable Care Team Providers Care Circuit Court Clerk Name Role Phone Shahram Mccallum MD PCP Unavailable Reason for Visit * Auth/Cert Referred By Contact Referred To Contact Status Reason Specialty Diagnoses / Procedures [facility] [address] [place] [address] Closed Inpatient Diagnoses Screening colonoscopy Encounter Details Care Team Description Date Type Department Mary Moore MD NO ADDRESS ON FILE 12/27/2013 [facility] - Encounter [facility] 12/28/2013 [address] [place] [address] Social History Date Tobacco Use [...] Comments Vital Sign 124/80 12/28/2013 9:04 AM MERCHANDISE EXAMINER Blood Pressure 74 12/28/2013 9:04 AM MERCHANDISE EXAMINER Pulse 36.1 C (96.9 F) 12/28/2013 9:04 AM MERCHANDISE EXAMINER Temperature 16 12/28/2013 9:04 AM MERCHANDISE EXAMINER Respiratory Rate 95% 12/28/2013 9:04 AM MERCHANDISE EXAMINER Oxygen Saturation - - Inhaled Oxygen Concentration - - Weight 167.6 cm (5' 6") 12/27/2013 11:45 AM MERCHANDISE EXAMINER Height - - Body Mass Index documented in this encounter Discharge Summaries * Mary Moore MD - 12/30/2013 10:49 AM MERCHANDISE EXAMINER Physician Discharge Summary Patient: Oliverio Tinsley / [...] duplicate medications found. Review medication list car [facility]. Patient instructions: Activity: activity as tolerated. Diet: Regular Diet. Follow-up with Mary Moore MD in 7 day(s). Signed: Mary Moore MD 12/30/2013, 10:49 AM HANDISE EXAMINER documented in this encounter Discharge Instructions * [...] throughout the day. ExitCare Patient Information 2006 [employer]. documented in this encounter Medications at Time [...] Mary Moore MD - 12/27/2013 4:54 PM MERCHANDISE EXAMINER Subjective: Oliverio Tinsley is an 63 y.o. [...] 02/01/2009 COLONOSCOPY performed by MARY MOORE at [facility] OR Hx hernia repair 1988 And age 4 Hx lap cholecystectomy 05/17/07 Hx coronary artery bypass graft Hx heart catheterization 04/10 With angioplasty, 2 stents Pr lap,appendectomy 05/28/2012 APPENDECTOMY LAPAROSCOPIC performed by Mary Moore MD at [facility] OR Pr repair umbilical colleen,4+y/o,reduc 05/28/2012 HERNIA UMBILICAL REPAIR performed by Mary Moore MD at [facility] OR Family History Problem [...] the hospital encounter of 12/09/13 (from the [facility] 336 hour(s)) XR RIBS UNILATERAL [...] 3. Admission on 12/27 for bowel prep. HANDISE EXAMINER documented in this encounter Procedure Notes * David Ferrer MD - 12/28/2013 8:39 AM MERCHANDISE EXAMINER Associated Order(s): EKG 12-LEAD [address] [place] [address] Patient Name: OLIVERIO TINSLEY CSN: [id number] : 1950 Provider: David Bernard M.D. Admitted: 12/27/2013 ELECTROCARDIOGRAM DATE OF SERVICE: 12/27/2013 12/27/2013 at 1421. The rhythm is regular, sinus in origin with a rate of 62 beat s per minute. UT interval is prolonged. Electrical axis is leftward. T waves are flattened across the tracing. Minimal R waves are noted through V4 across the c hest. Compared with previous tracing dated May 03 2013, electrical axis has s hifted leftward currently. UT interval is longer on the current tracing. [...] out. Dictated by: David Bernard M.D./MEDQ D: [id number] V: [id number] cc: MD Mary Thakkar M.D. HANDISE EXAMINER documented in this encounter OR Notes * OR Anesthesia - Shahram Senior CRNA - 12/28/2013 10:10 AM MERCHANDISE EXAMINER Post Anesthesia Evaluation Sign Out Vitals: BP [...] responsive Eris Madden CRNA 12/28/2013; 10:10 AM HANDISE EXAMINER * OR Anesthesia - Shahram Senior CRNA - 12/28/2013 8:35 AM MERCHANDISE EXAMINER Patient in PACU. Respond ing verbally No nausea at this time vital signs stable HANDISE EXAMINER * Operative Report - Mary Moore MD - 12/28/2013 8:31 AM MERCHANDISE EXAMINER Colonoscopy Procedure Note Procedure: Colonoscopy --screening Pre-operative [...] 1 Drop 1 Drop Both Eyes BID Mary Whaley MD acetaminophen (TYLENOL) tablet 650 mg 650 [...] Mary Moore MD 10 mg at 12/27/13 125 OLANZapine (ZYPREXA) tablet 2.5 mg 2.5 mg [...] (DILANTIN) capsule 200 mg 200 mg Oral Conor ly Mary Moore MD 200 mg at [...] Recommendations: -Await pathology., -Follow up with me. HANDISE EXAMINER * OR Anesthesia - Shahram Senior CRNA - 12/28/2013 7:53 AM MERCHANDISE EXAMINER Patient seen in OP> Chart reviewed and patient interviewed. Discussed general anesthesia with him and he agrees to proceed. ASA3 INCREASED RISK MAL2 HANDISE EXAMINER documented in this encounter Plan of Treatment Not on filedocumented as of this encounter Procedures Comments Procedure Name Priority Date/Time Associated Diag nosis EKG 12-LEAD Routine 12/29/2013 1:39 PM MERCHANDISE EXAMINER PATHOLOGY Routine 12/28/2013 8:19 AM MERCHANDISE EXAMINER COLONOSCOPY 12/28/2013 7:40 AM MERCHANDISE EXAMINER POC GLUCOSE Routine 12/27/2013 4:54 PM MERCHANDISE EXAMINER CBC WITHOUT DIFFERENTIAL Routine 12/27/2013 1:40 PM MERCHANDISE EXAMINER COMPREHENSIVE METABOLIC Routine 12/27/2013 PANEL 1:40 PM MERCHANDISE EXAMINER POC GLUCOSE Routine 12/27/2013 12:01 PM MERCHANDISE EXAMINER documented in this encounter Results * EKG 12-LEAD (12/29/2013 1:39 PM MERCHANDISE EXAMINER) Narrative Performed At This result has an attachment that is n ot available. Transcriptions David Bernard MD - 12/28/2013 8:39 AM MERCHANDISE EXAMINER [address] [place], [place] [address] Patient Name: OLIVERIO TINSLEY CSN: [id number] : 1950 Provider: David Bernard M.D. Admitted: 12/27/2013 ELECTROCARDIOGRAM DATE OF SERVICE: 12/27/2013 12/27/2013 at 1421. The rhythm is regular , sinus in origin with a rate of 62 beats per minute. UT interval is prolonged. Electrical axis is leftward. T waves are flattened across the tracing. Minimal R waves are noted through V4 across the chest. Compared with previous tracing dated May 03 2013, electrical axis has shifted leftward currently. UT interval is longer on the current tracing. [...] completely ruled out. Dictated by: David Bernard M.D./GlassUpQ D: [id number] V: [id number] cc: MD Mary Thakkar M.D. * PATHOLOGY (12/28/2013 8:19 AM MERCHANDISE EXAMINER) CASE REPORT Surgical Pathology Report [facility] Case: [id number] CONSULTANTS, ROLAND -------- Authorizing Provider: Mary Moore MD Ordering Provider: Mary Moore MD Ordering Location: [facility] Collected: 12/28/2013 8:19 AM Operating Room Pathologist: Keaton Anne MD Received: 12/28/2013 2:54 PM Signed Out: 12/29/2013 8:41 PM (Final) Specimen: , Rectal polyps. FINAL DIAGNOSIS Rectum, biopsies: [facility]UR[facility] Electronic ally 1. Hyperplastic polyp. PATHOLOGY signed by 2. Mucosal lymphoid CONSULTANTS, Phillip Moreno MD on 12/29/2013 CPT Code: 18232 at 8:41 PM ICD9 Code: 569.9, 569.89 OPERATIVE Colonoscopy. [facility] PROCEDURE PATHOLOGY CONSULTANTS, ROLAND GROSS The specimen is received in HURON DESCRIPTION formalin and consists of three PATHOL OGY 0.2 to 0.5 cm parsons-echeverria soft CONSULTANTROLAND Tracey tissue fragments entirely submitted. MICROSCOPIC Microscopic examination shows HURON DESCRIPTION fragments of colonic mucosa. PATHOLOG Y Some tangential sectioning is ROLAND WELCH present. Vague lymphoid aggregates are sometimes seen in the lamina propria. One fragment shows crypts with serrated luminal borders and decreased numbers of goblet cells. There is no adenomatous epithelium or malignancy. Specimen Tissue specimen (specimen) Performing Organization Address [facility] Ph one Number [facility] CLIA# [id number] [place] [address] CONSULTANTSROLAND [address] [place] [address] PATHOLOGY CLIA# [id number] [place], [place] [address] CONSULTANTROLAND Tracey [address] [place] [address] * POC GLUCOSE (12/27/2013 4:54 PM MERCHANDISE EXAMINER) POC GLUCOSE 129 (H) 70 - 100 mg/dL [facility] Specimen Capillary blood specimen (specimen) Performing Organization Address [facility] Ph one Number [facility] CLIA# [id number] [place], [place] [address] [address] LABORATORY SERVICES CLIA# [id number] [place] [address] - [address] * COMPREHENSIVE METABOLIC PANEL (12/27/2013 1:40 PM MERCHANDISE EXAMINER) [facility] SODIUM 138 134 - 145 mmol/L [facility] POTASSIUM 4.0 3.5 - 5.1 mmol/L [facility] CHLORIDE 104 98 - 107 mmol/L [facility] CO2 26 22 - 31 mmol/L [facility] CALCIUM 8.8 8.5 - 10.1 mg/dL [facility] BUN 14 7 - 20 mg/dL [facility] CREATININE 0.70 0.67 - 1.17 mg/dL [facility] GLUCOSE 201 (H) 70 - 100 mg/dL [facility] TOTAL PROTEIN 7.4 6.4 - 8.2 g/dL [facility] ALBUMIN 3.7 3.4 - 5.0 g/dL [facility] BILIRUBIN TOTAL 0.2 <=1.1 mg/dL [facility] ALKALINE 108 40 - 136 U/L [facility] [place] AST 15 10 - 40 U/L [facility] ALT 34 25 - 70 U/L [facility] GFR >60 >=60 mL/min/1.73 sq [facility] Comment: meter LABORATORY eGFR has not been validated SERVICES [facility] for use in the elderly (> 70 [...] result. GFR, >60 >=60 mL/min/1.73 sq [facility] NIGERIEN Comment: meter LABORATORY eGFR has not been validated SERVICES [facility] for use in the elderly (> 70 [...] Specimen Blood specimen (specimen) Performing Organization Address City/[facility] Ph one Number [facility] CLIA# [id number] [place] [address] [address] LABORATORY SERVICES CLIA# [id number] [place] [address] * CBC WITHOUT DIFFERENTIAL (12/27/2013 1:40 PM MERCHANDISE EXAMINER) [facility] WBC 7.6 3.0 - 10.4 K/uL [facility] - [place]AY[place] RBC 4.67 4.15 - 5.75 M/uL [facility] - [place] HEMOGLOBIN 13.6 (L) 13.8 - 17.4 g/dL [facility] - [place] HEMATOCRIT 39.6 38.6 - 49.4 % [facility] - [place] MCV 84.8 79.0 - 100.0 fL [facility] - [place] MCH 29.1 28.0 - 34.0 pg [facility] - [place] MCHC 34.3 31.0 - 35.0 g/dL [facility] [place] PLATELETS 338 148 - 408 K/uL [facility] [place] MPV 6.9 (L) 7.4 - 10.6 fL [facility] [place] RDW 14.4 (H) 12.1 - 14.1 % [facility] [place] Specimen Blood specimen (specimen) Performing Organization Address [facility] Ph one Number [facility] CLIA# [id number] [place] [address] [address] LABORATORY SERVICES CLIA# [id number] [place] [address] * POC GLUCOSE (12/27/2013 12:01 PM MERCHANDISE EXAMINER) POC GLUCOSE 176 (H) 70 - 100 mg/dL [facility] [place] Specimen Capillary blood specimen (specimen) Performing Organization Address City/State/Zipcode Ph one Number [facility] CLIA# [id number] [place] [address] [address] LABORATORY SERVICES CLIA# [id number] [place] [address] - [address] documented in this encounter Visit Diagnoses Diagnosis Status post colonoscopy - Primary Other postprocedural status documented in this encounter Administered Medications Action Date Dose Rate Site Medication Order MAR Action 12/28/2013 9:10 AM MERCHANDISE EXAMINER 25 mg bethanechol (URECHOLINE) tablet 25 mg Given 25 mg, Oral, FOUR TIMES DAILY, First dose on Wed12/27/13 at 1300, Until Discontinued, Routine, Previous Med: bethanechol (URECHOLINE) 25 mg Oral tablet - Orig Sig - Take 1 Tab by mouth 4 times daily. , 25 mg Given 12/27/2013 8:58 PM MERCHANDISE EXAMINER 25 mg Given 12/27/2013 6:23 PM MERCHANDISE EXAMINER 12/27/2013 9:05 PM MERCHANDISE EXAMINER 10 mg bisacodyl delayed release (DULCOLAX) Given tablet 10 mg 10 mg, Oral, ONE TIME ONLY, 1 dose, Wed12/27/13 at 2100, Routine 12/27/2013 1:17 PM MERCHANDISE EXAMINER 20 mg bisacodyl delayed release (DULCOLAX) Given tablet 20 mg 20 mg, Oral, ONE TIME ONLY, 1 dose, Wed12/27/13 at 1200, Routine 12/28/2013 9:13 AM MERCHANDISE EXAMINER 40 mg esomeprazole (NEXIUM) capsule 40 mg Given 40 mg, Oral, DAILY BEFORE BREAKFAST, First dose on Wed12/27/13 at 1200, Unti l Discontinued, Routine, Previous Med: esomeprazole (NEXIUM) 40 mg Oral CpDR - Orig Sig - Take 1 Cap by mouth daily before breakfast. , 40 mg Given 12/27/2013 12:55 PM MERCHANDISE EXAMINER 12/28/2013 11:12 AM MERCHANDISE EXAMINER 45 mcg Deltoid, Left flu vaccine ts 2012 (36 mos+)(PF) Given (FLUZONE,FLUARIX) 45 mcg/0.5 mL syringe 45 mcg 45 mcg (0.5 mL), IM, ONE TIME ONLY, 1 dose, [facility] 12/28/13 at 1030, Routine 12/28/2013 9:10 AM MERCHANDISE EXAMINER 40 mg FLUoxetine (PROZAC) capsule 40 mg Given 40 mg, Oral, DAILY, First dose on Wed12/27/13 at 1130, Until Discontinued, Routine, Previous Med: FLUoxetine (PROZAC) 20 mg capsule - Orig Sig - Apolinar e 2 Caps by mouth daily., 40 mg Given 12/27/2013 1:03 PM MERCHANDISE EXAMINER 12/28/2013 9:11 AM MERCHANDISE EXAMINER 60 mg isosorbide mononitrate SR 24 hour Given (IMDUR) tablet 60 mg 60 mg, Oral, TWO TIMES DAILY, First dos e on Wed12/27/13 at 1200, Until Discontinued, Routine, Previous Med: isosorbide mononitrate SR 24 hour (IMDUR) 60 mg Oral tablet - Orig Sig - Take 1 Tab by mouth 2 times daily. , 60 mg Given 12/27/2013 8:59 PM MERCHANDISE EXAMINER 60 mg Given 12/27/2013 12:55 PM MERCHANDISE EXAMINER 12/27/2013 12:35 PM MERCHANDISE EXAMINER 30 mL/hr lactated ringers solution New Bag IV, at 30 mL/hr, CONTINUOUS, Starting Wed12/27/13 at 1130, Until Wed12/28/13 at 1350, Routine 12/28/2013 9:10 AM MERCHANDISE EXAMINER 10 mg loratadine (CLARITIN) tablet 10 mg Given 10 mg, Oral, DAILY, First dose on Wed12/27/13 at 1130, Until Discontinued, Routine, Previous Med: loratadine (CLARITIN) 10 mg Oral tablet - Orig Sig - Take 1 Tab by mouth daily. , 10 mg Given 12/27/2013 1:03 PM MERCHANDISE EXAMINER 12/28/2013 9:12 AM MERCHANDISE EXAMINER 1 mg LORazepam (ATIVAN) tablet 1 mg Given 1 mg, Oral, TWO TIMES DAILY, First dose on Wed12/27/13 at 1130, Until Discontinued, Routine, Previous Med: LORazepam (ATIVAN) 1 mg tablet - Orig Sig - TAKE ONE TABLET BY MOUTH 2 TIMES A DAY., 1 mg Given 12/27/2013 8:57 PM MERCHANDISE EXAMINER 1 mg Given 12/27/2013 1:04 PM MERCHANDISE EXAMINER 12/27/2013 8:56 PM MERCHANDISE EXAMINER 2.5 mg OLANZapine (ZYPREXA) tablet 2.5 mg Given 2.5 mg, Oral, DAILY AT BEDTIME, First dose on Wed12/27/13 at 2100, Until Discontinued, Routine, Previous Med: OLANZapine (ZYPREXA) 2.5 mg Oral tablet - Orig Sig - Take 1 Tab by mouth daily at bedtime. , 12/27/2013 9:05 PM MERCHANDISE EXAMINER 4 mg ondansetron (ZOFRAN ODT) tablet 4 mg Given 4 mg, Oral, EVERY 6 HOURS PRN, Starting Wed12/27/13 at 1119, Until Wed12/28/13 at 1350, Nausea/Emesis, Routine, Previous Med: ondansetron (ZOFRAN) 4 mg Oral Tab - Orig Sig - Take 1 Tab by mouth every 6 hours as needed for Nausea/Emesis. , 12/27/2013 8:58 PM MERCHANDISE EXAMINER 100 mg phenytoin sodium extended release Given (DILANTIN) capsule 100 mg 100 mg, Oral, DAILY AT BEDTIME, First dose on Wed12/27/13 at 2100, Until Discontinued, Routine 12/28/2013 9:12 AM MERCHANDISE EXAMINER 200 mg phenytoin sodium extended release Given (DILANTIN) capsule 200 mg 200 mg, Oral, DAILY, First dose on Wed12/27/13 at 1130, Until Discontinued, Routine, Previous Med: phenytoin sodium extended release (DILANTIN) 100 mg capsule - Orig Sig - TAKE 2 CAPSULES BY MOUTH EVERY MORNING AND ONE CAPSULE AT BEDTIME., 200 mg Given 12/27/2013 1:03 PM MERCHANDISE EXAMINER 12/27/2013 1:17 PM MERCHANDISE EXAMINER 306 Grams polyethylene glycol 3350 (MIRALAX) oral Given powder for solution 306 Gram 306 Gram, Oral, ONE TIME ONLY, 1 dose, Wed12/27/13 at 1300, Routine 12/27/2013 12:56 PM MERCHANDISE EXAMINER 10 mg ramipril (ALTACE) capsule 10 mg Given 10 mg, Oral, DAILY, First dose on Wed12/27/13 at 1215, Until Discontinued, Routine, Previous Med: ramipril (ALTACE ) 10 mg Oral capsule - Orig Sig - Take 1 Cap by mouth daily. , 12/27/2013 6:25 PM MERCHANDISE EXAMINER 0.4 mg tamsulosin (FLOMAX) capsule 0.4 mg Given 0.4 mg, Oral, DAILY, First dose on Wed12/27/13 at 1800, Until Discontinued, Routine, Previous Med: FLOMAX 0.4 mg Oral capsule - Orig Sig - TAKE ONE CAPSULE BY MOUTH EVERY DAY 30 MINUTES AFTER SUPPER, documented in this encounter
--- OUTSIDE RECORDS SUMMARY | 2020-03-24 14:17 | XMS REPORT | Encounter Summary ---
Author Author [facility] Organization [facility] Address Unknown Phone Unavailable Care Team Providers Care Customer Engagement Analyst Name Role Phone Shahram Mccallum MD PCP Unavailable Encounter Details Care Team Description Date Type Department Anais Ray RN SN - HOME VISIT 11/21/2013 [facility] [address] [place] [address] Social History Date Tobacco Use [...] 12/05/2012 Plan of Care of Disciplines: patient/ca Group Home regiver that do not follow the plan of care. Active - 2 problem interventions scheduled/documented in this visit Home Safety Home 12/05/2012 Disciplines: safety Group Home Active - 1 problem intervention scheduled/documented in this visit Medications Management 12/05/2012 Disciplines: of home Group Home medication s Active - 2 problem interventions scheduled/documented in this visit Medications Management 04/29/2013 Disciplines: of home Group Home medication s Active - 1 problem intervention scheduled/documented in this visit Pulse Oximetry Skilled 12/05/2012 Disciplines: assessment Group Home and monitoring of O2 saturation s. Active - 2 problem interventions scheduled/documented in this visit Skilled Observation and Skilled 12/05/2012 Assessment nursing Disciplines: observatio Group Home n [...] Home Health Visit - Actions and Narratives recommended ice to toe where pt jammed the toe with resultant bruising and mild redness/swelling and mod pain. documented in this encounter
--- OUTSIDE RECORDS SUMMARY | 2020-03-24 14:17 | XMS REPORT | Encounter Summary ---
Author Author [facility] Organization [facility] Address Unknown Phone Unavailable Care Team Providers Care Christmas Tree Grower Name Role Phone Shahram Mccallum MD PCP Unavailable Encounter Details Care Team Description Date Type Department Anais Ray RN SN - HOME VISIT 10/31/2013 [facility] [address] [place] [address] Social History Date Tobacco [...] - SN - HOME VISIT Discipline - Retirement Status Goals Interventions Problem Descriptio Start Date n Active - 1 problem intervention scheduled/documented in this visit Failure to Comply With Behaviors 12/05/2012 Plan of Care of Disciplines: patient/ca Retirement regiver that do not follow the plan of care. Active - 2 problem interventions scheduled/documented in this visit Home Safety Home 12/05/2012 Disciplines: safety Retirement Active - 1 problem intervention scheduled/documented in this visit Medications Management 12/05/2012 Disciplines: of home Retirement medication s Active - 2 problem interventions scheduled/documented in this visit Medications Management 04/29/2013 Disciplines: of home Retirement medication s Active - 1 problem intervention scheduled/documented in this visit Pulse Oximetry Skilled 12/05/2012 Disciplines: assessment Retirement and monitoring of O2 saturation s. Active - 2 problem interventions scheduled/documented in this visit Skilled Observation and Skilled 12/05/2012 Assessment nursing Disciplines: observatio Retirement n and assessment . Variance Visit Notes [...] Health Visit - Actions and Narratives med cyber policy and strategy planner set up for the week. pt den ies falls this week, decreased activity and using walker. documented in this encounter
--- OUTSIDE RECORDS SUMMARY | 2020-03-24 14:17 | XMS REPORT | Encounter Summary ---
Author Author [facility] Organization [facility] Address Unknown Phone Unavailable Care Team Providers Care Insulation Engineman Name Role Phone Shahram Mccallum MD PCP Unavailable Encounter Details Care Team Description Date Type Department Anais Ray RN SN - HOME VISIT 10/24/2013 [facility] [address] [place] [address] Social History Date Tobacco Use [...] 12/05/2012 Plan of Care of Disciplines: patient/ca Intermediate regiver that do not follow the plan of care. Active - 2 problem interventions scheduled/documented in this visit Home Safety Home 12/05/2012 Disciplines: safety Intermediate Active - 1 problem intervention scheduled/documented in this visit Medications Management 12/05/2012 Disciplines: of home Intermediate medication s Active - 2 problem interventions scheduled/documented in this visit Medications Management 04/29/2013 Disciplines: of home Intermediate medication s Active - 1 problem intervention scheduled/documented in this visit Pulse Oximetry Skilled 12/05/2012 Disciplines: assessment Intermediate and monitoring of O2 saturation s. Active - 2 problem interventions scheduled/documented in this visit Skilled Observation and Skilled 12/05/2012 Assessment nursing Disciplines: observatio Intermediate n and [...] Home Health Visit - Actions and Narratives Filled med digital sales planner. Communicated with jose a t on his week, blood glucose reading >300 after an episode where the pt had symptoms of hypoglycem ia and ate peanut butter. He also experienced an unassociated fall, going through his ki [employer] doorway. Instructed and encouraged pt to use the walker d/t increased falls reports. Pt tearful, sobbing. When asked, pt sta mann that he feels it's "all for nothing". Recent increased falls and physical decline, anxiety reg arding decreased in-home assist, and notices of service declination along with other recent gov ernmental cutbacks are weighing heavily on pt. He feels all he has will be taken from him and he wi ll be placed in a custodial. Pt very apologetic regarding his state and expression of his sorrow. documented in this encounter
--- OUTSIDE RECORDS SUMMARY | 2020-03-24 14:17 | XMS REPORT | Encounter Summary ---
Author Author [facility] Organization [facility] Address Unknown Phone Unavailable Care Team Providers Care Resident Care Supervisor Name Role Phone Shahram Mccallum MD PCP Unavailable Encounter Details Care Team Description Date Type Department Anais Ray RN SN - OASIS DISCHARGE 11/28/2013 [facility] [address] [place] [address] Social History Date Tobacco Use [...] - SN - OASIS DISCHARGE Discipline - Fci Status Goals Interventions Problem Descriptio Start Date n Resolved on 11/28/2013 - 1 problem intervention scheduled/documented in this visit Failure to Comply With Behaviors 12/05/2012 Plan of Care of Disciplines: patient/ca Fci regiver that do not follow the plan of care. Resolved on 11/28/2013 - 2 problem interventions scheduled/documented in this visit Home Safety Home 12/05/2012 Disciplines: safety Fci Resolved on 11/28/2013 - 1 problem intervention scheduled/documented in this visit Medications Management 12/05/2012 Disciplines: of home Fci medication s Resolved on 11/28/2013 - 2 problem interventions scheduled/documented in this visit Medications Management 04/29/2013 Disciplines: of home Fci medication s Resolved on 11/28/2013 - 1 problem intervention scheduled/documented in this visit Pulse Oximetry Skilled 12/05/2012 Disciplines: assessment Fci and monitoring of O2 saturation s. Resolved on 11/28/2013 - problem intervention scheduled/documented in this visit Skilled Observation and Skilled 12/05/2012 Assessment nursing Disciplines: observatio Fci n and assessment . Variance Visit Notes [...] for changes to patient Fall Risk Assessment. Visit on 11/28/2013 by Anais Ray RN [[id number]] at 11/28/2013 4:44:53 PM Pcg to assume this task now. Has med schedule and list. Medication box Problem: Completed Description: Medication SN [...]
--- OUTSIDE RECORDS SUMMARY | 2020-03-24 14:17 | XMS REPORT | Encounter Summary ---
Author Author [facility] Organization [facility] Address Unknown Phone Unavailable Care Team Providers Care Cable Reeler Name Role Phone Shaharm Mccallum MD PCP Unavailable Reason for Visit * Reason Comments Medication Refill Encounter Details Care Team Description Date Type Department Shahram Mccallum MD NO ADDRESS ON FILE Back pain (Primary Dx) 11/07/2013 Refill [facility] Prim[facility] Care [address] [phone] Social History Date Tobacco Use Types Packs/Day [...]
--- OUTSIDE RECORDS SUMMARY | 2020-03-24 14:18 | XMS REPORT | Encounter Summary ---
Author Author [facility] Organization [facility] Address Unknown Phone Unavailable Care Team Providers Care Automotive Salesperson Name Role Phone Shahram Mccallum MD PCP Unavailable Reason for Visit * Reason Comments Medication Refill Encounter Details Care Team Description Date Type Department Shahram Mccallum MD NO ADDRESS ON FILE 10/10/2013 Refill [facility] Primar y Care [address] [phone] Social History Date Tobacco Use Types Packs/Day [...]
--- OUTSIDE RECORDS SUMMARY | 2020-03-24 14:18 | XMS REPORT | Encounter Summary ---
Author Author [facility] Organization [facility] Address Unknown Phone Unavailable Care Team Providers Care Airport Utility Worker Name Role Phone Shahram Mccallum MD PCP Unavailable Reason for Visit * Reason Comments Medication Refill Encounter Details Care Team Description Date Type Department Shahram Mccallum MD NO ADDRESS ON FILE 09/05/2013 Refill [facility] Primar y Care [address] [phone] Social History Date Tobacco Use Types Packs/Day [...]
--- OUTSIDE RECORDS SUMMARY | 2020-03-24 14:18 | XMS REPORT | Encounter Summary ---
Author Author [facility] Organization [facility] Address Unknown Phone Unavailable Care Team Providers Care Yam Curer Name Role Phone Shahram Mccallum MD PCP Unavailable Encounter Details Care Team Description Date Type Department Anais Ray RN SN - HOME VISIT 09/12/[facility] [address] [place] [address] Social History Date Tobacco Use [...] Health Visit - Actions and Narratives Med production control planner filled, rx reorder called. Physician's office contacted for refills on po pain med (Percocet) and Lantus insulin. pt is compaining of pain in the right k nee has increased since fall over a week ago. Recommend cold pack alternate with heat since this is what feels best to pt. States this pain is not keeping him from walking. Also states since cool/da mp weather he has had more pain in this and in the wrists. States he has had increased angina with activity but this resolves whenever he takes his nitro tabs. Does not occur at rest but occasionally has difficulty with chest discomfort right after eating. States also he has had some trouble rec ently with swallowing. documented in this encounter
--- OUTSIDE RECORDS SUMMARY | 2020-03-24 14:18 | XMS REPORT | Encounter Summary ---
Author Author [facility] Organization [facility] Address Unknown Phone Unavailable Care Team Providers Care Security Door Installer Name Role Phone Shahram Mccallum MD PCP Unavailable Reason for Visit * Reason Comments Medication Refill Encounter Details Care Team Description Date Type Department Shahram Mccallum MD NO ADDRESS ON FILE 08/22/2013 Refill [facility] Primar y Care [address] [phone] Social History Date Tobacco Use Types Packs/Day [...]
--- OUTSIDE RECORDS SUMMARY | 2020-03-24 14:18 | XMS REPORT | Encounter Summary ---
Author Author [facility] Organization [facility] Address Unknown Phone Unavailable Care Team Providers Care Evp Sales Name Role Phone Shahram Mccallum MD PCP Unavailable Encounter Details Care Team Description Date Type Department Rosalinda Bal 10/12/2013 Orders Only [facility] Primar y Care [address] [address] [place] [phone] Social History Date Tobacco Use Types Packs/Day [...]
--- OUTSIDE RECORDS SUMMARY | 2020-03-24 14:18 | XMS REPORT | Encounter Summary ---
Author Author [facility] Organization [facility] Address Unknown Phone Unavailable Care Team Providers Care Mesh Worker Name Role Phone Shahram Mccallum MD PCP Unavailable Reason for Visit * Reason Comments Medication Refill Encounter Details Care Team Description Date Type Department Shahram Mccallum MD NO ADDRESS ON FILE 10/03/2013 Refill [facility] Primar y Care [address] [phone] Social History Date Tobacco Use Types Packs/Day [...]
--- OUTSIDE RECORDS SUMMARY | 2020-03-24 14:18 | XMS REPORT | Encounter Summary ---
Author Author [facility] Organization [facility] Address Unknown Phone Unavailable Care Team Providers Care Lean Process Deployment Consultant Name Role Phone Shahram Mccallum MD PCP Unavailable Encounter Details Care Team Description Date Type Department Anais Ray RN SN - HOME VISIT 09/05/2013 [facility] [address] [place] [address] Social History Date Tobacco [...] - SN - HOME VISIT Discipline - Half-Way Status Goals Interventions Problem Descriptio Start Date n Active - 1 problem intervention scheduled/documented in this visit Failure to Comply With Behaviors 12/05/2012 Plan of Care of Disciplines: patient/ca Half-Way regiver that do not follow the plan of care. Active - 2 problem interventions scheduled/documented in this visit Home Safety Home 12/05/2012 Disciplines: safety Half-Way Active - 1 problem intervention scheduled/documented in this visit Medications Management 12/05/2012 Disciplines: of home Half-Way medication s Active - 2 problem interventions scheduled/documented in this visit Medications Management 04/29/2013 Disciplines: of home Half-Way medication s Active - 1 problem intervention scheduled/documented in this visit Pulse Oximetry Skilled 12/05/2012 Disciplines: assessment Half-Way and monitoring of O2 saturation s. Active - 1 problem intervention scheduled/documented in this visit Skilled Observation and Skilled 12/05/2012 Assessment nursing Disciplines: observatio Half-Way n and assessment . Variance Visit Notes [...] Visit - Actions and Narratives Med production planner scheduler filled and rx med refills o rdered. pt teaching on medications and purposes. Safety teaching. pt reports a fall, small, sup erficial scratches on leg and a 2.5 cm bruise with a small scratch on lue. denies other injuries. Diet reviewed with pt. documented in this encounter
--- OUTSIDE RECORDS SUMMARY | 2020-03-24 14:18 | XMS REPORT | Encounter Summary ---
Author Author [facility] Organization [facility] Address Unknown Phone Unavailable Care Team Providers Care Pretzel Cooker Name Role Phone Shahram Mccallum MD PCP Unavailable Encounter Details Care Team Description Date Type Department Shahram Mccallum MD NO ADDRESS ON FILE 09/18/2013 Abstract [facility] Primar y Care [place] [address] [place] [phone] Social History Date Tobacco Use Types Packs/Day [...]
--- OUTSIDE RECORDS SUMMARY | 2020-03-24 14:18 | XMS REPORT | Encounter Summary ---
Author Author [facility] Organization [facility] Address Unknown Phone Unavailable Care Team Providers Care Lye Bath Operator Name Role Phone Shahram Mccallum MD PCP Unavailable Encounter Details Care Team Description Date Type Department Anais Ray RN SN - HOME VISIT 10/03/2013 [facility] [address] [place] [address] Social History Date Tobacco Use [...] 12/05/2012 Plan of Care of Disciplines: patient/ca Mcc regiver that do not follow the plan of care. Active - 2 problem interventions scheduled/documented in this visit Home Safety Home 12/05/2012 Disciplines: safety Mcc Active - 1 problem intervention scheduled/documented in this visit Medications Management 12/05/2012 Disciplines: of home Mcc medication s Active - 2 problem interventions scheduled/documented in this visit Medications Management 04/29/2013 Disciplines: of home Mcc medication s Active - 1 problem intervention scheduled/documented in this visit Pulse Oximetry Skilled 12/05/2012 Disciplines: assessment Mcc and monitoring of O2 saturation s. Active - 2 problem interventions scheduled/documented in this visit Skilled Observation and Skilled 12/05/2012 Assessment nursing Disciplines: observatio Mcc n and [...] need for modifications to the treatment plan. Visit on 10/03/2013 by Anais Ray RN [[id number]] at 10/03/2013 1:41:03 PM pt states he is doing the quad tightening exerrcise as instructed but that he has not noticed it doing any good. Encouraged pt to continue and not to expect visible results but that it will aid in strengthening the knees. Skilled observation and Problem: Completed assessment for [...] Home Health Visit - Actions and Narratives working through [facility] as opposed to [facility] ([facility]) for in home services. Med materials planner/production planner filled, RX refill orders pl aced. Meds kept in locked cabinet. General assessment, no new problems or concerns. ; ; ; documented in this encounter
--- OUTSIDE RECORDS SUMMARY | 2020-03-24 14:18 | XMS REPORT | Encounter Summary ---
Author Author [facility] Organization [facility] Address Unknown Phone Unavailable Care Team Providers Care Crane Helper Name Role Phone Shahram Mccallum MD PCP Unavailable Encounter Details Care Team Description Date Type Department Shahram Mccallum MD NO ADDRESS ON FILE Ftsc, Outpt Lab 10/12/2013 [facility] Outpatient Encounter Laboratory [address] [phone] Social History Date Tobacco [...] Drop in both eyes 2 times daily. 10/12/2013 11/07/2013 oxyCODONE-acetaminophen Take 1-2 Tabs 50 Tab 0 (PERCOCET) 5-325 mg by mouth tabletIndications: Back every 6 hours pain as needed for Pain, Moderate. 10/12/2013 08/26/2015 insulin glargine (LANTUS) 40 units [...] mg Oral tablet mouth daily at bedtime. 2012 11/14/2013 albuterol (PROAIR HFA) 90 Take by 0 mcg/Actuation Inhalation inhalation. HFAA inhaler Take 2 Puffs by inhalation every 4 hours as needed for Shortness of Breath or Wheezing. 05/09/2013 03/12/2014 simvastatin (ZOCOR) 40 mg TAKE [...] Date/Time Associated Diag nosis HEMOGLOBIN A1C Stat 10/12/2013 Type 2 diabetes mellitus 9:00 AM DAIRY TESTER LIPID PANEL Stat 10/12/2013 Hyperlipidemia 9:00 AM DAIRY TESTER COMPREHENSIVE METABOLIC Stat 10/12/2013 Hyperl ipidemia PANEL 9:00 AM DAIRY TESTER documented in this encounter Results * HEMOGLOBIN A1C (10/12/2013 9:00 AM DAIRY TESTER) HEMOGLOBIN A1C 8.0 (H) 0.0 - 6.0 % [facility] [place] EST. AVG 183 mg/dL [facility] GLUCOSE, A1C LAB[facility]ATORY [facility] - [place] Specimen Blood specimen (specimen) Performing Organization Address City/State/[facility] Ph one Number [facility] CLIA# [id number] [place], [place] [address] - [address] LABORATORY SERVICES CLIA# [id number] [place] [address] - [address] * LIPID PANEL (10/12/2013 9:00 AM DAIRY TESTER) CHOLESTEROL 210 mg/dL [facility] [place] TRIGLYCERIDE 432 mg/dL [facility] [place] HDL 38 mg/dL [facility] [place] LDL CALCULATED Comment: Calculated LDL is not <=130 mg/dL [facility] accurate when the Triglyceride LABORATORY value exceeds 400. [place] - [place] Specimen Blood specimen (specimen) Narrative Performed At TOTAL CHOLESTEROL mg/dL [facility] Desirable <200 SERVICES - [facility] Borderline high 200-239 [place] High >=240 TRIGLYCERIDES mg/dL Normal <150 Borderline high 150-199 High 200-499 Very high >=500 HDL CHOLESTEROL mg/dL Low <40 Normal 40-60 Desirable >60 LDL CHOLESTEROL mg/dL Optimal <100 Low risk 100-129 Borderline high 130-159 High 160-189 Very high >=190 Based on AHA/NCEP Guidelines Performing Organization Address City/State/Zipcode Ph one Number [facility] CLIA# [id number] [place] [address] [place] [address] [place] [address] LABORATORY SERVICES CLIA# [id number] [place] [address] [place] [address] * COMPREHENSIVE METABOLIC PANEL (10/12/2013 9:00 AM DAIRY TESTER) SODIUM 133 (L) 134 - 145 mmol/L [facility] [place] POTASSIUM 4.2 3.5 - 5.1 mmol/L [facility] [place] CHLORIDE 100 98 - 107 mmol/L [facility] [place] CO2 26 22 - 31 mmol/L [facility] [place] CALCIUM 9.1 8.5 - 10.1 mg/dL [facility] [place] BUN 26 (H) 7 - 20 mg/dL [facility] [place] CREATININE 0.78 0.67 - 1.17 mg/dL [facility] [place] GLUCOSE 244 (H) 70 - 100 mg/dL [facility] [place] TOTAL PROTEIN 7.5 6.4 - 8.2 g/dL [facility] [place] ALBUMIN 3.8 3.4 - 5.0 g/dL [facility] [place] BILIRUBIN TOTAL 0.4 <=1.1 mg/dL [facility] [place] ALKALINE 119 40 - 136 U/L [facility] PHOSPHATASE LAB[facility]ATORY [facility] - [place] AST 18 10 - 40 U/L [facility] [place] ALT 38 25 - 70 U/L [facility] [place] GFR 100 >=60 mL/min/1.73 sq [facility] Comment: meter LABORATORY eGFR has not been validated SERVICES - [facility] for use in the elderly (> 70 [place] years of age), women, patients with serious co-morbid conditions, or persons with extremes of body size or muscle mass and should also be interpreted with caution in patients with acute kidney failure, dialysis dependant patients, patients reporting exceptional dietary intake (e.g. vegetarian diet, high protein diets, creatine supplementation), and patients with severe liver disease. Based on National Kidney Disease Education Program GFR, 121 >=60 mL/min/1.73 sq [facility] [place] Comment: meter LABORATORY eGFR has not been validated SERVICES - [facility] for use in the elderly (> 70 [place] years of age), women, patients with serious co-morbid conditions, or persons with extremes of body size or muscle mass and should also be interpreted with caution in patients with acute kidney failure, dialysis dependant patients, patients reporting exceptional dietary intake (e.g. vegetarian diet, high protein diets, creatine supplementation), and patients with severe liver disease. Based on National Kidney Disease Education Program Specimen Blood specimen (specimen) Performing Organization Address City/State/[facility] Ph one Number [facility] CLIA# [id number] [place] [address] - [address] LABORATORY SERVICES CLIA# [id number] [place] [address] - [address] documented in this encounter Visit Diagnoses Diagnosis Hyperlipidemia Other and unspecified hyperlipidemia Type 2 diabetes mellitus Type II or unspecified type diabetes me llitus without mention of complication, not stated as uncontrolled documented in this encounter
--- OUTSIDE RECORDS SUMMARY | 2020-03-24 14:18 | XMS REPORT | Encounter Summary ---
Author Author [facility] Organization [facility] Address Unknown Phone Unavailable Care Team Providers Care Gang Sawyer Name Role Phone Shahram Mccallum MD PCP Unavailable Reason for Visit * Reason Comments Hyperlipidemia Fall fell c/o bilatera l hip pain Encounter Details Care Team Description Date Type Department Shahram Mccallum MD NO ADDRESS ON FILE Staghorn renal calculus (Primary Dx); Fracture of metacarpal; Back pain; Diabetes mellitus 10/12/2013 Office Visit [facility] [address] [phone] Social History Date Tobacco Use Types Packs/Day [...] Signs Reading Time Taken Comments Vital Sign 144/80 10/12/2013 1:32 PM GREASE MACHINE WORKER Blood Pressure - - Pulse - - Temperature - - Respiratory Rate - - Oxygen Saturation - - Inhaled Oxygen Concentration 93.4 kg (206 lb) 10/12/2013 1:32 PM GREASE MACHINE WORKER Weight 167.6 cm (5' 6") 10/12/2013 1:32 PM GREASE MACHINE WORKER Height 33.25 10/12/2013 1:32 PM GREASE MACHINE WORKER Body Mass Index documented in this encounter Progress Notes * Shahram Mccallum MD - 10/12/2013 8:17 PM GREASE MACHINE WORKER Subjective: Oliverio Dalton is a 63 y.o. [...] disorder 345.90 Depression 311 Suicidal behavior 300.9 Current Outpatient Prescriptions on File Prior to Visit Medication Sig Dispense Refill phenytoin sodium extended [...] daily at bedtime . 30 Tab 11 albuterol (PROAIR HFA) 90 mcg/Actuation Inhalation HFAA inhaler Take by inh alation. Take 2 Puffs by inhalation every 4 hours as needed for Shortness of Rekha ath or Wheezing. simvastatin (ZOCOR) 40 mg Oral tablet TAKE [...] 4 hours as needed for P ain. [DISCONTINUED] oxyCODONE-acetaminophen (PERCOCET) 5-325 mg tablet Take 1-2 T abs by mouth every 6 hours as needed for Pain, Moderate. 50 Tab 0 [DISCONTINUED] insulin glargine (LANTUS) 100 unit/mL Solution 30 units at be dtime 10 mL 11 No current facility-administered medications on file prior to visit. Lab Results Component Value Date/Time HGBA1C 8.0* 10/12/2013 9:00 AM HGBA1C 7.1* 01/02/2013 9:50 AM HGBA1C 6.8* 08/15/2012 8:40 AM MALBUR 32.2 08/15/2012 8:43 AM LDLCALC Comment: Calculated LDL is not accurate when the Triglyceride value exc eeds 400. 10/12/2013 9:00 AM LDLDIRECT 125 12/10/2011 9:05 AM CREAT 0.78 10/12/2013 9:00 AM Lab Results Component Value Date/Time CHOLTOT 210 10/12/2013 9:00 AM CHOLTOT 137* 01/02/2013 9:50 AM CHOLTOT 214* 08/15/2012 8:40 AM HDL 38 10/12/2013 9:00 AM HDL 48 01/02/2013 9:50 AM HDL 42 08/15/2012 8:40 AM LDLCALC Comment: Calculated LDL is not accurate when the Triglyceride value exc eeds 400. 10/12/2013 9:00 AM LDLCALC 70 01/02/2013 9:50 AM LDLCALC 103 08/15/2012 8:40 AM LDLDIRECT 125 12/10/2011 9:05 AM LDLDIRECT 123 08/04/2011 9:05 AM LDLDIRECT 125 04/02/2011 8:46 AM TRIGLYCERIDE 432 10/12/2013 9:00 AM TRIGLYCERIDE 95 01/02/2013 9:50 AM TRIGLYCERIDE 345* 08/15/2012 8:40 AM ALT 38 10/12/2013 9:00 AM AST 18 10/12/2013 9:00 AM Lab Results Component Value Date/Time CREAT 0.78 10/12/2013 9:00 AM BUN 26* 10/12/2013 9:00 AM NA 133* 10/12/2013 9:00 AM K 4.2 10/12/2013 9:00 AM CL 100 10/12/2013 9:00 AM CO2 26 10/12/2013 9:00 AM GFR 100 10/12/2013 9:00 AM Lab Results Component Value Date/Time ALT 38 10/12/2013 9:00 AM AST 18 10/12/2013 9:00 AM ALKPHOS 119 10/12/2013 9:00 AM BILITOTAL 0.4 10/12/2013 9:00 AM HPI: Mr. Dalton complains of the following (by systems): Arthritis symptoms: diffuse arthralgias and barbara pain low back and coccyx after f alling onto piece of wood. Some worse with motion and standing. Chest Pain symptoms: none and shortness of breath COPD related symtoms: dyspnea, cough, wheezing and stable Diabetes Type II complaints: medication compliance: compliant most of the time , diabetic diet compliance: noncompliant some of the time Hypertension related symtoms/issues: taking medications as instructed, no side effects of medications, no chest pain on exertion, no dyspnea on exertion, no ed lian No complications related to lipids or lipid therapy. EMotionally better than last several months. No suicide ideations. Review of Systems: MARA Has all of the following chronically: Headache Dizziness Chest pain Shortness of breath Bowel changes Bladder changes Pain in muscle or joints Exam/Objective: Normal Exam for Routine Visits: \\Blood pressure 144/80, height 5' 6" (1.676 m), weight 206 lb (93.441 kg). General appearance: chronic disabled appearing, active, alert, cooperative, soci al, normally nourished, and in no acute distress Lungs: breath sounds equal, clear but diminished to auscultation bilaterally, no retractions, no stridor, normal respiratory effort Heart: regular rate and rhythm, S1, S2 normal, no murmur, click, rub, gallop, or abnormal sounds. Abdomen: soft, non-tender. Bowel sounds normal. No masses, no organomegaly. Ac tive bowel sounds. Extremities: symmetrical non edematous. Assessment and Plan: ASSESSMENT: Encounter Diagnoses Name Primary? Staghorn renal calculus Yes Fracture of metacarpal Back pain Diabetes mellitus PLAN: Orders Placed This Encounter CMP (4 MONTHS X 1) LIPID PANEL (4 MONTHS X 1) HEMOGLOBIN A1C (4 MONTHS X 1) oxyCODONE-acetaminophen (PERCOCET) 5-325 mg tablet insulin glargine (LANTUS) 100 unit/mL Solution Appropriate medications prescribed (see detailed AVS). Appropriate patient instructions provided (see detailed AVS). Follow-up as I have indicated. Medications and options explained to include common side effects. Understanding of medications, course, diagnosis, and expectations were expressed by patient/g uardian. SE MACHINE WORKER documented in this encounter Plan of Treatment Not on filedocumented as of this encounter Results * HEMOGLOBIN A1C (02/12/2014 8:27 AM CDT) HEMOGLOBIN A1C 7.6 (H) 0.0 - 6.0 % [facility] - [place] EST. AVG 171 mg/dL [facility] GLUCOSE, A1C LABORATORY SERVICES - [place] Specimen Blood specimen (specimen) Performing Organization Address [facility] one [facility] LABORATORY SERVICES CLIA# [id number] [place] [address] [address] LABORATORY SERVICES CLIA# [id number] [place] [address] - [address] * LIPID PANEL (02/12/2014 8:27 AM CDT) CHOLESTEROL 176 mg/dL [facility] - [place] TRIGLYCERIDE 212 mg/dL [facility] [place] HDL 49 mg/dL [facility] - [place] LDL CALCULATED 85 <=130 mg/dL [facility] - [place] Specimen Blood specimen (specimen) Narrative Performed At TOTAL CHOLESTEROL mg/dL [facility] LAB[facility] Desirable <200 SERVICES - [facility] Borderline high 200-239 [place] High >=240 TRIG[place]ID[place] mg/dL Normal <150 Borderline high 150-199 High 200-499 Very high >=500 HDL CHOLESTEROL mg/dL Low <40 Normal 40-60 Desirable >60 LDL CHOLESTEROL mg/dL Optimal <100 Low risk 100-129 Borderline high 130-159 High 160-189 Very high >=190 Based on AHA/NCEP Guidelines Performing Organization Address [facility] one [facility] LABORATORY SERVICES CLIA# [id number] [place] [address] [address] LABORATORY SERVICES CLIA# [id number] [place] [address] - [address] * COMPREHENSIVE METABOLIC PANEL (02/12/2014 8:27 AM CDT) SODIUM 138 134 - 145 mmol/L [facility] - [place] POTASSIUM 4.2 3.5 - 5.1 mmol/L [facility] - [place] CHLORIDE 102 98 - 107 mmol/L [facility] [place] CO2 27 22 - 31 mmol/L [facility] SERVICES - [facility] FAYE CALCIUM 9.0 8.5 - 10.1 mg/dL [facility] - [place] BUN 15 7 - 20 mg/dL [facility] [place] CREATININE 0.85 0.67 - 1.17 mg/dL [facility] - [place] GLUCOSE 194 (H) 70 - 100 mg/dL [facility] [place] TOTAL PROTEIN 7.6 6.4 - 8.2 g/dL [facility] - [place] ALBUMIN 3.8 3.4 - 5.0 g/dL [facility] [place] BILIRUBIN TOTAL 0.3 <=1.1 mg/dL [facility] - [place] ALKALINE 116 40 - 136 U/L [facility] PHOSPHATASE LABORATORY SERVICES - [facility] FAYE AST 14 10 - 40 U/L [facility] - [place] ALT 34 25 - 70 U/L [facility] - [place] GFR >60 >=60 mL/min/1.73 sq [facility] Comment: meter LABORATORY eGFR has not been validated [facility] for use in the elderly (> 70 [...] GFR result. GFR, >60 >=60 mL/min/1.73 sq [facility] meter LABORATORY SERVICES - [place] Specimen Blood specimen (specimen) Performing Organization Address City/State[facility] Ph one Number [facility] CLIA# [id number] [place] [address] [address] LABORATORY SERVICES CLIA# [id number] [place] [address] - [address] documented in this encounter Visit Diagnoses Diagnosis Staghorn renal calculus - Primary Calculus of kidney Fracture of metacarpal Closed fracture of metacarpal bone(s), site unspecified Back pain Backache, unspecified Diabetes mellitus Type II or unspecified type diabetes me llitus without mention of complication, not stated as uncontrolled documented in this encounter
--- OUTSIDE RECORDS SUMMARY | 2020-03-24 14:18 | XMS REPORT | Encounter Summary ---
Author Author [facility] Organization [facility] Address Unknown Phone Unavailable Care Team Providers Care Tank Farm Attendant Name Role Phone Shahram Mccallum MD PCP Unavailable Reason for Visit * Reason Comments Medication Refill Encounter Details Care Team Description Date Type Department Shahram Mccallum MD NO ADDRESS ON FILE 10/10/2013 Refill [facility] Primar y Care [address] [phone] Social History Date Tobacco Use Types Packs/Day [...]
--- OUTSIDE RECORDS SUMMARY | 2020-03-24 14:18 | XMS REPORT | Encounter Summary ---
Author Author [facility] Organization [facility] Address Unknown Phone Unavailable Care Team Providers Care Postmaster Relief Name Role Phone Shahram Mccallum MD PCP Unavailable Encounter Details Care Team Description Date Type Department Anais Ray, RN CASE COMMUNICATION 09/28/2013 Home Care Visit [facility] [address] [place] [address] Social History Date Tobacco Use [...]
--- OUTSIDE RECORDS SUMMARY | 2020-03-24 14:18 | XMS REPORT | Encounter Summary ---
Author Author [facility] Organization [facility] Address Unknown Phone Unavailable Care Team Providers Care Installation Coordinator Name Role Phone Shahram Mccallum MD PCP Unavailable Encounter Details Care Team Description Date Type Department Anais Ray RN SN - OASIS RECERTIFICATION 09/26/2013 [facility] [address] [place] [address] Social History Date Tobacco Use [...] Signs Reading Time Taken Comments Vital Sign 106/76 09/26/2013 10:00 PM ADVANCED PRACTICE RN Blood Pressure - - Pulse - - Temperature 16 09/26/2013 10:00 PM ADVANCED PRACTICE RN Respiratory Rate - - Oxygen Saturation - - Inhaled Oxygen Concentration - - Weight - - Height - - Body Mass Index documented in this encounter Plan of Treatment Not on filedocumented as of this encounter Visit Diagnoses Not on filedocumented in this encounter Home Health Visit - Care Plan Visit Type - SN - OASIS RECERT Discipline - Alf Status Goals Interventions Problem Descriptio Start Date n Active - 1 problem intervention scheduled/documented in this visit Failure to Comply With Behaviors 12/05/2012 Plan of Care of Disciplines: patient/ca Alf regiver that do not follow the plan of care. Active - 2 problem interventions scheduled/documented in this visit Home Safety Home 12/05/2012 Disciplines: safety Alf Active - 1 problem intervention scheduled/documented in this visit Medications Management 12/05/2012 Disciplines: of home Alf medication s Active - 2 problem interventions scheduled/documented in this visit Medications Management 04/29/2013 Disciplines: of home Alf medication s Active - 1 problem intervention scheduled/documented in this visit Pulse Oximetry Skilled 12/05/2012 Disciplines: assessment Alf and monitoring of O2 saturation s. Active - 2 problem interventions scheduled/documented in this visit Skilled Observation and Skilled 12/05/2012 Assessment nursing Disciplines: observatio Alf n and [...] Safety equipment, transfer techiniques, and home modifications. Visit on 09/26/2013 by Anais Ray RN [[id number]] at 09/28/2013 8:38:01 AM pt has had several falls this month according to caregiver. pt states his knees give out and are weak. Safety teaching reiterated and instructed on exerrcise to strengthen quadriceps. pt performed return demonstration. Skilled assessment risk Problem: Completed for injury [...] and Assessment assessment of patient's response to changed medications, change in treatment plan, and for s/s [...] resting on the arm rests and walking ai d nearby. When clinician says "Go," patient should rise from the armed chair, stand on both feet, wa lk forward 10 feet, turn around, return to the chair and sit down again. Timing should be started at the word "Go" and stopped when patient's buttocks touch the seat upon returning to the chair. The p atient may walk through the test once before being timed in order to become familiar with the test. Walking aid used? No Older adults (age 65+) who took 13.5 se conds or longer to perform the TUG were classified as fallers, with an overall correct predic tion rate of 90%. 16 seconds pt rushes which might increase fall ris k. documented in this encounter
--- OUTSIDE RECORDS SUMMARY | 2020-03-24 14:18 | XMS REPORT | Encounter Summary ---
Author Author [facility] Organization [facility] Address Unknown Phone Unavailable Care Team Providers Care Mill Dresser Name Role Phone Shahram Mccallum MD PCP Unavailable Reason for Visit * Reason Comments Medication Refill Encounter Details Care Team Description Date Type Department Shahram Mccallum MD NO ADDRESS ON FILE 10/03/2013 Refill [facility] Primar y Care [address] [phone] Social History Date Tobacco Use Types Packs/Day [...]
--- OUTSIDE RECORDS SUMMARY | 2020-03-24 14:18 | XMS REPORT | Encounter Summary ---
Author Author [facility] Organization [facility] Address Unknown Phone Unavailable Care Team Providers Care Piece Goods Clerk Name Role Phone Shahram Mccallum MD PCP Unavailable Encounter Details Care Team Description Date Type Department Anais Ray RN SN - HOME VISIT 09/19/2013 [facility] [address] [place] [phone] Social History Date Tobacco Use [...] 12/05/2012 Plan of Care of Disciplines: patient/ca Assisted regiver that do not follow the plan of care. Active - 1 problem intervention scheduled/documented in this visit Home Safety Home 12/05/2012 Disciplines: safety Assisted Active - 1 problem intervention scheduled/documented in this visit Medications Management 12/05/2012 Disciplines: of home Assisted medication s Active - 2 problem interventions scheduled/documented in this visit Medications Management 04/29/2013 Disciplines: of home Assisted medication s Active - 1 problem intervention scheduled/documented in this visit Pulse Oximetry Skilled 12/05/2012 Disciplines: assessment Assisted and monitoring of O2 saturation s. Active - 3 problem interventions scheduled/documented in this visit Skilled Observation and Skilled 12/05/2012 Assessment nursing Disciplines: observatio Assisted n and [...] Safety equipment, transfer techiniques, and home modifications. Medication box Problem: Completed Description: Medication SN [...] any abnormalities or concerns to the physician. Skilled observation and Problem: Completed assessment Skilled Description: Observatio Skilled observation and n and assessment due to recent Assessment exacerbation of disease process. documented in this encounter Home Health Visit - Actions and Narratives Med landscape architect and planner filled. pt is not feeling w ell today. has cold sx, but lungs cta and afebrile. no le edema. no specific complaints or concer ns, other than pt states he is more readily fatigued and feels "rough". documented in this encounter
--- OUTSIDE RECORDS SUMMARY | 2020-03-24 14:18 | XMS REPORT | Encounter Summary ---
Author Author [facility] Organization [facility] Address Unknown Phone Unavailable Care Team Providers Care Cotton Gin Yard Supervisor Name Role Phone Shahram Mccallum MD PCP Unavailable Encounter Details Care Team Description Date Type Department Anais Ray RN SN - HOME VISIT 08/29/2013 [facility] [address] [place] [phone] Social History Date Tobacco Use [...] 12/05/2012 Plan of Care of Disciplines: patient/ca [facility] regiver that do not follow the plan of care. Active - 2 problem interventions scheduled/documented in this visit Home Safety Home 12/05/2012 Disciplines: safety [facility] Active - 1 problem intervention scheduled/documented in this visit Medications Management 12/05/2012 Disciplines: of home [facility] medication s Active - 2 problem interventions scheduled/documented in this visit Medications Management 04/29/2013 Disciplines: of home [facility] medication s Active - 1 problem intervention scheduled/documented in this visit Pulse Oximetry Skilled 12/05/2012 Disciplines: assessment [facility] and monitoring of O2 saturation s. Active - 1 problem intervention scheduled/documented in this visit Skilled Observation and Skilled 12/05/2012 Assessment nursing Disciplines: observatio [facility] [...] Health Visit - Actions and Narratives med tool planner filled and rx reordered as indicated. instructed on possible non- pharmacologic pain control methods to use along with po pa in meds. home safety and diet addressed. documented in this encounter
--- OUTSIDE RECORDS SUMMARY | 2020-03-24 14:18 | XMS REPORT | Encounter Summary ---
Author Author [facility] Organization [facility] Address Unknown Phone Unavailable Care Team Providers Care Electronic Engraver Name Role Phone Shahram Mccallum MD PCP Unavailable Encounter Details Care Team Description Date Type Department Anais Ray RN SN - HOME VISIT 10/17/2013 [facility] [address] [place] [phone] Social History Date Tobacco Use [...] 12/05/2012 Plan of Care of Disciplines: patient/ca Nursing Home regiver that do not follow the plan of care. Active - 1 problem intervention scheduled/documented in this visit Home Safety Home 12/05/2012 Disciplines: safety Nursing Home Active - 1 problem intervention scheduled/documented in this visit Medications Management 12/05/2012 Disciplines: of home Nursing Home medication s Active - 2 problem interventions scheduled/documented in this visit Medications Management 04/29/2013 Disciplines: of home Nursing Home medication s Active - 1 problem intervention scheduled/documented in this visit Pulse Oximetry Skilled 12/05/2012 Disciplines: assessment Nursing Home and monitoring of O2 saturation s. Active - 2 problem interventions scheduled/documented in this visit Skilled Observation and Skilled 12/05/2012 Assessment nursing Disciplines: observatio Nursing Home n [...] Home Health Visit - Actions and Narratives General assessment, safety/fall prevent ion teaching. Med business continuity planner filled and reordered Rx meds as indicated. Medication teaching pt reports a noninjury fall when he wal ked outside his back door and slipped on ice. documented in this encounter
--- OUTSIDE RECORDS SUMMARY | 2020-03-24 14:18 | XMS REPORT | Encounter Summary ---
Author Author [facility] Organization [facility] Address Unknown Phone Unavailable Care Team Providers Care Manager Business Process Name Role Phone Shahram Mccallum MD PCP Unavailable Encounter Details Care Team Description Date Type Department Karen Booker RN SN - HOME VISIT 10/10/2013 [facility] [address] [place] [phone] Social History Date Tobacco [...] Signs Reading Time Taken Comments Vital Sign 116/74 10/10/2013 10:00 PM LIGHT RAIL OPERATOR Blood Pressure - - Pulse 36.2 C (97.1 F) 10/10/2013 10:00 PM LIGHT RAIL OPERATOR Temperature 20 10/10/2013 10:00 PM LIGHT RAIL OPERATOR Respiratory Rate - - Oxygen Saturation [...] intervention scheduled/documented in this visit Medications Management 04/29/2013 [...]
--- OUTSIDE RECORDS SUMMARY | 2020-03-24 14:18 | XMS REPORT | Encounter Summary ---
Author Author [facility] Organization [facility] Address Unknown Phone Unavailable Care Team Providers Care Staffing Administrator Name Role Phone Shahram Mccallum MD PCP Unavailable Reason for Visit * Reason Comments Medication Refill Encounter Details Care Team Description Date Type Department Shahram Mccallum MD NO ADDRESS ON FILE Staghorn renal calculus (Primary Dx); Fracture of metacarpal 09/12/2013 Refill [facility] [address] [phone] Social History Date Tobacco Use [...] as of this encounter Visit Diagnoses Diagnosis Staghorn renal calculus - Primary Calculus of kidney Fracture of metacarpal Closed fracture of metacarpal bone(s), site unspecified documented in this encounter
[2020-03-24 14:19] LABS: AMPHETAMINE SCREEN, URINE NEGATIVE (NEGATIVE); BARBITURATE SCREEN URINE POSITIVE (NEGATIVE); BENZODIAZEPINES SCREEN URINE POSITIVE (NEGATIVE); CANNABINOID SCREEN, URINE NEGATIVE (NEGATIVE); COCAINE SCREEN URINE NEGATIVE (NEGATIVE); METHADONE STAT NEGATIVE (NEGATIVE); METHAMPHETAMINE SCREEN URINE S NEGATIVE (NEGATIVE); OPIATE SCREEN URINE NEGATIVE (NEGATIVE); OXYCODONE STAT NEGATIVE (NEGATIVE); PROPOXYPHENE STAT NEGATIVE (NEGATIVE); TRICYCLIC ANTIDEPRESSANTS SCRE NEGATIVE (NEGATIVE)
--- OUTSIDE RECORDS SUMMARY | 2020-03-24 14:19 | XMS REPORT | Encounter Summary ---
Author Author [facility] Organization [facility] Address Unknown Phone Unavailable Care Team Providers Care Cut File Clerk Name Role Phone Shahram Mccallum MD PCP Unavailable Encounter Details Care Team Description Date Type Department Karen Booker RN SN - HOME VISIT 07/11/2013 [facility] [address] [place] [address] Social History Date Tobacco Use [...] Reading Time Taken Comments Vital Sign 128/76 07/11/2013 10:00 PM CDT Blood Pressure - - Pulse 36.7 C (98 F) 07/11/2013 10:00 PM CDT Temperature 18 07/11/2013 10:00 PM CDT Respiratory Rate - - Oxygen [...] Home Health Visit - Actions and Narratives Physician not called about pain level a nieves 5 because he has not taken any pain med this morning. He is also having trouble with caregivers causing him anxiety and stress. Encouraged to take pain medication now. Patient is having surgery on t o remove kidney stones. They are hoping to do through a scope but may have to make an incision if the y are unable to get with scope. Patient is teary eyed and is worried that he will not survive the valero rgery. documented in this encounter
--- OUTSIDE RECORDS SUMMARY | 2020-03-24 14:19 | XMS REPORT | Encounter Summary ---
Author Author [facility] Organization [facility] Address Unknown Phone Unavailable Care Team Providers Care Sole Splitter Name Role Phone Shahram Mccallum MD PCP Unavailable Encounter Details Care Team Description Date Type Department Karen Booekr RN SN - HOME VISIT 06/13/2013 Home Care Visit [facility] [address] [place] [address] Social History Date Tobacco Use [...] Signs Reading Time Taken Comments Vital Sign 112/74 06/13/2013 10:00 PM CDT Blood Pressure - - Pulse 36.1 C (97 F) 06/13/2013 10:00 PM CDT Temperature 20 06/13/2013 10:00 PM CDT Respiratory Rate - - [...] and monitor for proper filling and administration. Sn to obtain pulse ox Problem: Completed [...] about pain level a nieves 5 because patient hasn't taken any pain medication today. documented in this encounter
--- OUTSIDE RECORDS SUMMARY | 2020-03-24 14:19 | XMS REPORT | Encounter Summary ---
Author Author [facility] Organization [facility] Address Unknown Phone Unavailable Care Team Providers Care Automatic Print Developer Name Role Phone Shahram Mccallum MD PCP Unavailable Encounter Details Care Team Description Date Type Department Shahram Mccallum MD NO ADDRESS ON FILE 07/27/2013 Abstract [facility] Primar y Care [place] [address] [place] [phone] Social History Date Tobacco Use Types Packs/Day [...]
--- OUTSIDE RECORDS SUMMARY | 2020-03-24 14:19 | XMS REPORT | Encounter Summary ---
Author Author [facility] Organization [facility] Address Unknown Phone Unavailable Care Team Providers Care Software Development Manager Name Role Phone Shahram Mccallum MD PCP Unavailable Encounter Details Care Team Description Date Type Department Shahram Mccallum MD NO ADDRESS ON FILE 06/27/2013 Abstract [facility] Primar y Care [place] [address] [place] [phone] Social History Date Tobacco Use Types Packs/Day [...]
--- OUTSIDE RECORDS SUMMARY | 2020-03-24 14:19 | XMS REPORT | Encounter Summary ---
Author Author [facility] Organization [facility] Address Unknown Phone Unavailable Care Team Providers Care Insurance Territory Manager Name Role Phone Shahram Mccallum MD PCP Unavailable Reason for Visit * Reason Comments Medication Refill Encounter Details Care Team Description Date Type Department Shahram Mccallum MD NO ADDRESS ON FILE 07/11/2013 Refill [facility] Primar y Care [address] [phone] Social History Date Tobacco Use Types Packs/Day [...]
--- OUTSIDE RECORDS SUMMARY | 2020-03-24 14:19 | XMS REPORT | Encounter Summary ---
Author Author [facility] Organization [facility] Address Unknown Phone Unavailable Care Team Providers Care Line Controller Name Role Phone Shahram Mccallum MD PCP Unavailable Reason for Visit * Reason Comments Medication Refill Encounter Details Care Team Description Date Type Department Shahram Mccallum MD NO ADDRESS ON FILE 06/06/2013 Refill [facility] Primar y Care [address] [phone] Social History Date Tobacco Use Types Packs/Day [...]
--- OUTSIDE RECORDS SUMMARY | 2020-03-24 14:19 | XMS REPORT | Encounter Summary ---
Author Author [facility] Organization [facility] Address Unknown Phone Unavailable Care Team Providers Care Software Project Lead Name Role Phone Shahram Mccallum MD PCP Unavailable Reason for Visit * Reason Comments Medication Refill Encounter Details Care Team Description Date Type Department Shahram Mccallum MD NO ADDRESS ON FILE 06/22/[address] [facility] Primar y Care [address] [phone] Social History Date Tobacco Use Types Packs/Day [...]
--- OUTSIDE RECORDS SUMMARY | 2020-03-24 14:19 | XMS REPORT | Encounter Summary ---
Author Author [facility] Organization [facility] Address Unknown Phone Unavailable Care Team Providers Care Ore Mixer Name Role Phone Shahram Mccallum MD PCP Unavailable Encounter Details Care Team Description Date Type Department Anais Ray RN SN - HOME VISIT 08/08/2013 [facility] [address] [place] [address] Social History Date Tobacco Use [...] visit Medications Management 12/05/2012 Disciplines: of home Fdc medication s Active - 1 problem intervention scheduled/documented in this visit Medications Management 04/29/2013 Disciplines: of home Fdc medication s Active - 1 problem intervention scheduled/documented in this visit Pulse Oximetry Skilled 12/05/2012 Disciplines: assessment Fdc and monitoring of O2 saturation s. Active - 1 problem intervention scheduled/documented in this visit Skilled Observation and Skilled 12/05/2012 Assessment nursing Disciplines: observatio Fdc n and assessment . Variance Visit Notes Intervention Associated Status Problem/Go al Medication box Problem: Completed Description: Medication SN to fill medication box s every Wednesday. SN to instruct Patient and Caregiver and monitor for proper filling and administration. Visit on 08/08/2013 by Anais Ray RN [[id number]] at 08/08/2013 1:38:15 PM instructed on potential risk for increased bleeding, s/sx to report to physician with use of plavix and Naproxen, asa. Instruct medications Problem: Completed Description: Medication Instruct [...] Home Health Visit - Actions and Narratives physician not called regarding pain abo ve 5 as pt is not consistent with pain medication use. counseled pt to use pain medications as prescribed and indicated. documented in this encounter
--- OUTSIDE RECORDS SUMMARY | 2020-03-24 14:19 | XMS REPORT | Encounter Summary ---
Author Author [facility] Organization [facility] Address Unknown Phone Unavailable Care Team Providers Care Food Beverage Manager Name Role Phone Shahram Mccallum MD PCP Unavailable Encounter Details Care Team Description Date Type Department Karen Booker RN SN - HOME VISIT 07/18/2013 [facility] [address] [place] [address] Social History Date Tobacco Use [...] Reading Time Taken Comments Vital Sign 126/70 07/18/2013 10:00 PM CDT Blood Pressure - - Pulse 36.6 C (97.8 F) 07/18/2013 10:00 PM CDT Temperature 20 07/18/2013 10:00 PM CDT Respiratory Rate - - [...] visit Medications Management 12/05/2012 Disciplines: of home Chcf medication s Active - 2 problem interventions scheduled/documented in this visit Medications Management 04/29/2013 Disciplines: of home Chcf medication s Active - 1 problem intervention scheduled/documented in this visit Pulse Oximetry Skilled 12/05/2012 Disciplines: assessment Chcf and monitoring of O2 saturation s. Active - 1 problem intervention scheduled/documented in this visit Skilled Observation and Skilled 12/05/2012 Assessment nursing Disciplines: observatio Chcf n and [...]
--- OUTSIDE RECORDS SUMMARY | 2020-03-24 14:19 | XMS REPORT | Encounter Summary ---
Author Author [facility] Organization [facility] Address Unknown Phone Unavailable Care Team Providers Care Toaster Operator Name Role Phone Shahram Mccallum MD PCP Unavailable Encounter Details Care Team Description Date Type Department Karen Booker RN SN - HOME VISIT 08/15/2013 [facility] [address] [place] [address] Social History Date Tobacco Use [...] Signs Reading Time Taken Comments Vital Sign 118/76 08/15/2013 10:00 PM CDT Blood Pressure - - Pulse 36.7 C (98 F) 08/15/2013 10:00 PM CDT Temperature 18 08/15/2013 10:00 PM CDT Respiratory Rate - - [...] visit Medications Management 12/05/2012 Disciplines: of home Long Term medication s Active - 1 problem intervention scheduled/documented in this visit Pulse Oximetry Skilled 12/05/2012 Disciplines: assessment Long Term and monitoring of O2 saturation s. Active - 1 problem intervention scheduled/documented in this visit Skilled Observation and Skilled 12/05/2012 Assessment nursing Disciplines: observatio Long Term n [...]
--- OUTSIDE RECORDS SUMMARY | 2020-03-24 14:19 | XMS REPORT | Encounter Summary ---
Author Author [facility] Organization [facility] Address Unknown Phone Unavailable Care Team Providers Care Wide Piece Goods Inspector Name Role Phone Shahram Mccallum MD PCP Unavailable Encounter Details Care Team Description Date Type Department Karen Booker RN SN - HOME VISIT 06/20/2013 [facility] [address] [place] [address] Social History Date Tobacco Use [...] Health Visit - Actions and Narratives Patient states that he hasn't took his blood sugar for "a long time". Explained importance of checking blood sugars on a regular basi s. He promises that he will do better about checking it. documented in this encounter
--- OUTSIDE RECORDS SUMMARY | 2020-03-24 14:19 | XMS REPORT | Encounter Summary ---
Author Author [facility] Organization [facility] Address Unknown Phone Unavailable Care Team Providers Care Film Maker Name Role Phone Shahram Mccallum MD PCP Unavailable Reason for Visit * Reason Comments Follow Up Surgical Clearance Encounter Details Care Team Description Date Type Department Walter Oconnor MD [address] [facility] [address] [place] [phone] Renal stone (Primary Dx); Back pain; Unspecified essential hypertension; Hyperlipidemia; CAD (coronary artery disease); COPD (chronic obstructive pulmonary disease); Seizure disorder; Diabetes mellitus 06/19/2013 Office Visit [facility] [address] [place] [address] Social History Date Tobacco Use [...] Signs Reading Time Taken Comments Vital Sign 116/60 06/19/2013 11:22 AM CDT Blood Pressure 74 06/19/2013 11:22 AM CDT Pulse - - Temperature 22 06/19/2013 11:22 AM CDT Respiratory Rate - - Oxygen Saturation - - Inhaled Oxygen Concentration 91.2 kg (201 lb) 06/19/2013 11:22 AM CDT Weight 167.6 cm (5' 6") 06/19/2013 11:22 AM CDT Height 32.44 06/19/2013 11:22 AM CDT Body Mass Index documented in this encounter Progress Notes * Walter Oconnor MD - 06/19/2013 11:23 AM CDT HISTORY OF PRESENT ILLNESS Oliverio Dalton, a 62 y.o. male. HPI The patient presents for follow-up of coronary artery disease. Since the last vi sit he has had rare non-exertional chest pain that is unchanged for the past se veral years. He denies shortness of breath or any other new cardiac symptoms. He is awaiting an elective urologic procedure for stones. His medications and most recent lab have been reviewed. The patient's past medical, social and family history were reviewed. Current Outpatient Prescriptions on File Prior to Visit Medication Sig Dispense Refill oxyCODONE-acetaminophen (PERCOCET) 5-325 mg Oral tablet Take 1-2 Tabs by henrik th every 6 hours as needed for Pain, Moderate. 0.5 tab every 6 hours as needed f or pain 50 Tab 0 AMBIEN 10 mg Oral tablet TAKE 1 TABLET BY MOUTH AT BEDTIME NEEDED. 30 Ta b 3 albuterol (PROAIR HFA) 90 mcg/Actuation Inhalation HFAA [...] Cap by mouth daily. 30 Cap 11 OLANZapine (ZYPREXA) 2.5 mg Oral tablet Take 2.5 mg by mouth daily at bedtim e. LORazepam (ATIVAN) 1 mg Oral tablet Take 1 Tab by mouth 2 times daily. 60 T ab 2 clopidogrel (PLAVIX) 75 mg Oral Tab Take 1 Tab by mouth daily. 30 Tab 11 insulin glargine (LANTUS) 100 unit/mL subCUT Soln 30 units at bedtime 10 mL 11 phenytoin sodium extended release (DILANTIN) 100 mg Oral capsule 200mg am 10 0mg pm 90 Cap 3 loratadine (CLARITIN) 10 mg Oral tablet Take [...] am & pm prn 1 Package 0 fenofibrate nanocrystallized (TRICOR) 145 mg Oral tablet Take 1 Tab by mouth daily with supper. 30 Tab 11 tamsulosin (FLOMAX) 0.4 mg Oral capsule Take 1 Cap by mouth daily. 30 min. A fter supper 30 Cap 11 magnesium oxide 250 mg Oral Tab Take [...] Review of Systems Constitutional: Negative for activity change and fatigue. HENT: Negative for congestion and facial swelling. Eyes: Negative for discharge. Respiratory: Positive for chest tightness. Negative for apnea, cough, shortness of breath and wheezing. Cardiovascular: Positive for chest pain. Negative for palpitations and leg swell ing. Gastrointestinal: Negative for nausea, vomiting, abdominal pain and diarrhea. Genitourinary: Positive for dysuria, urgency, hematuria and difficulty urinating . Negative for frequency. Musculoskeletal: Negative for back pain, arthralgias and gait problem. Skin: Negative for color change and pallor. Neurological: Negative for dizziness, syncope, facial asymmetry, speech difficul ty, weakness, light-headedness and headaches. Hematological: Does not bruise/bleed easily. Psychiatric/Behavioral: Negative for behavioral problems and confusion. PHYSICAL EXAM BP 116/60 | Pulse 74 | Resp 22 | Ht 5' 6" (1.676 m) | Wt 201 lb (91.173 kg) | BM I 32.46 kg/m2 Physical Exam Constitutional: He is oriented [...] normal. Judgment n ormal. ASSESSMENT and PLAN: (592.0) Renal stone (724.5) Back pain (401.9) Unspecified essential hypertension (272.4) Hyperlipidemia (414.00) CAD (coronary artery disease) (496) COPD (chronic obstructive pulmonary disease) (345.90) Seizure disorder (250.00) Diabetes mellitus He has known multi-vessel CAD with areas of chronic total occlusion and collater als. He is therefore always going to be at some increased cardiovascular risk wi th any surgery. However, he is on appropriate medical management and has no new symptoms. He understands his risk of [place] and arrythmia and wants to proceed with his surgery. Clearance letter sent Same meds 9 month return documented in this encounter Plan of Treatment Not on filedocumented as of this encounter Visit Diagnoses Diagnosis Renal stone - Primary Calculus of kidney Back pain Backache, unspecified Unspecified essential hypertension Hyperlipidemia Other and unspecified hyperlipidemia CAD (coronary artery disease) Coronary atherosclerosis of unspecified type of vessel, [place] or graft COPD (chronic obstructive pulmonary dis ease) Chronic airway obstruction, not elsewhe re classified Seizure disorder Unspecified epilepsy without mention of intractable epilepsy Diabetes mellitus Type II or unspecified type diabetes me llitus without mention of complication, not stated as uncontrolled documented in this encounter
--- OUTSIDE RECORDS SUMMARY | 2020-03-24 14:19 | XMS REPORT | Encounter Summary ---
Author Author [facility] Organization [facility] Address Unknown Phone Unavailable Care Team Providers Care Payroll And Benefits Manager Name Role Phone Shahram Mccallum MD PCP Unavailable Encounter Details Care Team Description Date Type Department Adwoa Lee RN SN - HOME VISIT 06/27/2013 [facility] [address] [place] [address] Social History Date Tobacco Use [...] Reading Time Taken Comments Vital Sign 120/60 06/27/2013 10:00 PM CDT Blood Pressure - - Pulse 36.8 C (98.3 F) 06/27/2013 10:00 PM CDT Temperature 18 06/27/2013 10:00 PM CDT Respiratory Rate - - [...] visit Home Safety Home 12/05/2012 Disciplines: safety Chcf Active - 1 problem [...] and monitor for proper filling and administration. Skilled observation and Problem: Completed assessment general Skilled assessment Observatio Description: n and SN to perform general Assessment assessment to include vital signs, and temperature; General assessment of systems: pulmonary, cardiovascular, endocrine and integumentary and report any abnormalities or concerns to the physician. documented in this encounter Home Health Visit - Actions and Narratives Teaching provided for safety to prevent falls, pt. expresses understanding. documented in this encounter
--- OUTSIDE RECORDS SUMMARY | 2020-03-24 14:19 | XMS REPORT | Encounter Summary ---
Author Author [facility] Organization [facility] Address Unknown Phone Unavailable Care Team Providers Care Air Conditioning Insulation Installer Name Role Phone Shahram Mccallum MD PCP Unavailable Encounter Details Care Team Description Date Type Department Anais Ray RN SN - HOME VISIT 08/22/2013 [facility] [address] [place] [address] Social History Date Tobacco Use [...] Reading Time Taken Comments Vital Sign 132/76 08/22/2013 2:00 PM CDT Blood Pressure - - Pulse 36 C (96.8 F) 08/22/2013 2:00 PM CDT Temperature 20 08/22/2013 2:00 PM CDT Respiratory Rate - - Oxygen [...] 12/05/2012 Plan of Care of Disciplines: patient/ca Senior Living regiver that do not follow the plan of care. Active - 2 problem interventions scheduled/documented in this visit Home Safety Home 12/05/2012 Disciplines: safety Senior Living Active - 1 problem intervention scheduled/documented in this visit Medications Management 12/05/2012 Disciplines: of home Senior Living medication s Active - 1 problem intervention scheduled/documented in this visit Medications Management 04/29/2013 Disciplines: of home Senior Living medication s Active - 1 problem intervention scheduled/documented in this visit Pulse Oximetry Skilled 12/05/2012 Disciplines: assessment Senior Living and monitoring of O2 saturation s. Active - 2 problem interventions scheduled/documented in this visit Skilled Observation and Skilled 12/05/2012 Assessment nursing Disciplines: observatio Senior Living n [...] monitor for proper filling and administration. Skilled assessment Problem: Completed medications Medication [...] Health Visit - Actions and Narratives med enterprise resource planner filled and medication refil ls ordered. Pt did not have enough of the OTC Magnesium to take tid, filled with available meds an d pt will get a new supply when he is able to afford it. Discussed with pt proper use of po pain meds and instructed on potential non- pharmacologic pain control measures. assessed glucometer b ut was unable to correct the problem. Machine shutting off prematurely and pt is unable to check f s. pt plans to take this in to see if it can be fixed or if he can get a new device. documented in this encounter
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
--- OUTSIDE RECORDS SUMMARY | 2020-03-24 14:19 | XMS REPORT | Encounter Summary ---
Author Author [facility] Organization [facility] Address Unknown Phone Unavailable Care Team Providers Care Girls Tennis Coach Name Role Phone Shahram Mccallum MD PCP Unavailable Encounter Details Care Team Description Date Type Department Christi Alvarez RN SN - HOME VISIT 07/07/2013 [facility] [address] [place] [address] Social History Date Tobacco Use [...] Visit Notes Intervention Associated Status Problem/Go al Visit on 07/07/2013 by Christi Alvarez RN [[id number]] at 07/08/2013 7:59:19 AM Patient was instructed on balance. With age, a combination of factors decreases balance. The nerve endings in our feet don't detect impulses as readily and the balance control centers in our brain and our ears operate more slowly. Age- related changes in vision and hearing, even when subtle, also contribute to the decline in balance. Patient was instructed on strategies that can significantly help decrease the risk of a fall such as: Good lighting throughout the home, especially in stairwells and hallways, Non-slip floors and rugs, Hand rails on stairs, nest to the toilet and in the shower and bathtub. Instruct home safety Problem: Completed Description: Home Instruct on safe use of Safety equipment, transfer techiniques, and home modifications. Skilled assessment risk Problem: Completed for injury Home Description: Safety Assess patient's sensory perception, ability for ambulation and movement, disorientation or changes in mentation. Assess the home environment for potential hazards. Monitor ongoing for changes to patient Fall Risk Assessment. Visit on 07/07/2013 by Christi Alvarez RN [[id number]] at 07/08/2013 7:59:19 AM Removed Multivitamin, Plavix, Naproxen and Aspirin from entire medication finished goods planner according to pre-op instructions. Provided explanation to patient reguarding what pain medications he may and may not take in the coming week. Medication box Problem: Completed Description: Medication SN [...]
--- OUTSIDE RECORDS SUMMARY | 2020-03-24 14:19 | XMS REPORT | Encounter Summary ---
Author Author [facility] Organization [facility] Address Unknown Phone Unavailable Care Team Providers Care Customer Services Coordinator Name Role Phone Shahram Mccallum MD PCP Unavailable Encounter Details Care Team Description Date Type Department Provider, Abstract Aok 06/20/[address] [facility] [address] [place] [phone] Social History Date Tobacco Use Types Packs/Day [...]
--- OUTSIDE RECORDS SUMMARY | 2020-03-24 14:19 | XMS REPORT | Encounter Summary ---
Author Author [facility] Organization [facility] Address Unknown Phone Unavailable Care Team Providers Care Women Specialist Name Role Phone Shahram Mccallum MD PCP Unavailable Reason for Visit * Reason Comments Medication Refill Encounter Details Care Team Description Date Type Department Shahram Mccallum MD NO ADDRESS ON FILE [place] renal calculus (Primary Dx); Fracture of metacarpal 08/17/2013 [facility] [address] [phone] Social History Date Tobacco Use [...]
--- OUTSIDE RECORDS SUMMARY | 2020-03-24 14:19 | XMS REPORT | Encounter Summary ---
Author Author [facility] Organization [facility] Address Unknown Phone Unavailable Care Team Providers Care Regional Transfer Liaison Name Role Phone Shahram Mccallum MD PCP Unavailable Reason for Visit * Reason Comments Medication Refill Encounter Details Care Team Description Date Type Department Shahram Mccallum MD NO ADDRESS ON FILE [place] renal calculus (Primary Dx); Fracture of metacarpal 06/13/2013 Refill [facility] [address] [phone] Social History Date Tobacco Use [...]
--- OUTSIDE RECORDS SUMMARY | 2020-03-24 14:19 | XMS REPORT | Encounter Summary ---
Author Author [facility] Organization [facility] Address Unknown Phone Unavailable Care Team Providers Care Blue Line Trimmer Name Role Phone Shahram Mccallum MD PCP Unavailable Encounter Details Care Team Description Date Type Department Karen Booker RN SN - OASIS RECERTIFICATION 08/01/2013 Home Care Visit [facility] [address] [place] [address] Social History Date Tobacco Use [...] Reading Time Taken Comments Vital Sign 122/68 08/01/2013 10:00 PM CDT Blood Pressure - - Pulse 36.4 C (97.6 F) 08/01/2013 10:00 PM CDT Temperature 18 08/01/2013 10:00 PM CDT Respiratory Rate - - Oxygen Saturation - - Inhaled Oxygen Concentration - - Weight 167.6 cm (5' 6") 08/01/2013 10:00 PM CDT Height - - Body Mass [...] visit Home Safety Home 12/05/2012 Disciplines: safety Fdc Active - 1 problem [...] Narratives Timed Up and Go (TUG) Test No Directions: Wearing their regular footw ear, patient [...] order to become familiar with the test. Older adults (age 65+) who took 13.5 se conds or longer to perform the TUG were classified as fallers, with an overall correct predic tion rate of 90%. Patient continues to need weekly medica tion production planner scheduler refills as he is unable to read and understand med list and medication bottles. He has a very limited reading ability and requires things to be read to him. He is unable to safely beatriz l med production planner scheduler and paid caregiver is not allowed to do per her agency's policy. Instructed on diabetic diet, daily foot inspection. Instructed on fall risk and fall precau tions. Instructed on high risk medications inc luding side effects and how and when to report problems. Instructed on signs and symptoms to rep ort and who to report to. documented in this encounter
--- OUTSIDE RECORDS SUMMARY | 2020-03-24 14:19 | XMS REPORT | Encounter Summary ---
Author Author [facility] Organization [facility] Address Unknown Phone Unavailable Care Team Providers Care Parts Facilitator Name Role Phone Shahram Mccallum MD PCP Unavailable Encounter Details Care Team Description Date Type Department Karen Booker RN SN - HOME VISIT 07/04/2013 Home Care Visit [facility] [address] [place] [address] Social History Date Tobacco Use [...] Visit - Actions and Narratives Patient is continuing to have trouble w ith knee pain. He has had it injected with minimal short term relief. He has appt later this week in [place] with orthopedic dr to see what else can be done. He is also preparing for kidney stone tod gagandeep next week. documented in this encounter
--- OUTSIDE RECORDS SUMMARY | 2020-03-24 14:19 | XMS REPORT | Encounter Summary ---
Author Author [facility] Organization [facility] Address Unknown Phone Unavailable Care Team Providers Care Matlab Developer Name Role Phone Shahram Mccallum MD PCP Unavailable Encounter Details Care Team Description Date Type Department Shahram Mccallum MD NO ADDRESS ON FILE 06/13/2013 Abstract [facility] Primar y Care [place] [address] [place] [phone] Social History Date Tobacco Use Types Packs/Day [...]
--- OUTSIDE RECORDS SUMMARY | 2020-03-24 14:19 | XMS REPORT | Encounter Summary ---
Author Author [facility] Organization [facility] Address Unknown Phone Unavailable Care Team Providers Care Envelope Sealer Name Role Phone Shahram Mccallum MD PCP Unavailable Reason for Visit * Reason Comments Needs Orders Written needs fpc for m ed admin. Encounter Details Care Team Description Date Type Department Judy Irvin RN Needs Orders Written (needs skilled nurs ing for director of graduate medical education.) 07/28/2013 Telephone [facility] Primar y [facility] [address] [place] [address] Social History Date Tobacco Use [...] encounter Miscellaneous Notes * Telephone Encounter - Judy Irvin RN - 07/28/2013 11:43 AM CDT This pt needs authorization ([id number]) to have fpc assessment on med management/svcs. Dx: pt can't read, has to have narcotics under lock and k ey, bi-polar, and depression. [facility] [phone]. [facility] will call back for this info with [address] Bustamante [phone] H ome care [phone] Per dr's in the clinic this pt's needs an office visit to discus s needs. documented in this encounter Plan of Treatment Not on filedocumented as of this encounter Visit Diagnoses Not on filedocumented in this encounter
--- OUTSIDE RECORDS SUMMARY | 2020-03-24 14:19 | XMS REPORT | Encounter Summary ---
Author Author [facility] Organization [facility] Address Unknown Phone Unavailable Care Team Providers Care Wallpaper Embosser Helper Name Role Phone Shahram Mccallum MD PCP Unavailable Encounter Details Care Team Description Date Type Department Karen Booker RN SN - HOME VISIT 07/25/2013 [facility] [address] [place] [address] Social History Date Tobacco Use [...] - SN - HOME VISIT Discipline - Custodial Status Goals Interventions Problem Descriptio Start Date n Active - 1 problem intervention scheduled/documented in this visit Medications Management 12/05/2012 Disciplines: of home Custodial medication s Active - 1 problem intervention scheduled/documented in this visit Medications Management 04/29/2013 Disciplines: of home Custodial medication s Active - 1 problem intervention scheduled/documented in this visit Pulse Oximetry Skilled 12/05/2012 Disciplines: assessment Custodial and monitoring of O2 saturation s. Active - 1 problem intervention scheduled/documented in this visit Skilled Observation and Skilled 12/05/2012 Assessment nursing Disciplines: observatio Custodial n and assessment . Variance Visit Notes [...]
[2020-03-24 14:20] LABS: BILIRUBIN,URINE NEGATIVE (NEGATIVE); CLARITY,URINE SLT CLOUDY; COLOR,URINE PALE YELLOW; GLUCOSE, URINE (UA) NEGATIVE (NEGATIVE); KETONES,URINE NEGATIVE (NEGATIVE); LEUKOCYTE ESTERASE ,URINE 3+ (NEGATIVE); NITRITE,URINE NEGATIVE (NEGATIVE); PROTEIN,URINE NEGATIVE (NEGATIVE)
--- OUTSIDE RECORDS SUMMARY | 2020-03-24 14:20 | XMS REPORT | Encounter Summary ---
Author Author [facility] Organization [facility] Address Unknown Phone Unavailable Care Team Providers Care Porter Baggage Name Role Phone Shahram Mccallum MD PCP Unavailable Reason for Visit * Auth/Cert Referred By Contact Referred To Contact Status Reason Specialty Diagnoses / Procedures [facility] [address] [place] [address] Closed Home Health Encounter Details Care Team Description Date Type Department Karen Booker RN SN - HOME VISIT 05/23/2013 Home Care Visit [facility] [address] [place] [address] Social History Date Tobacco Use [...] Signs Reading Time Taken Comments Vital Sign 124/78 05/23/2013 10:00 PM CDT Blood Pressure - - Pulse 36.6 C (97.8 F) 05/23/2013 10:00 PM CDT Temperature 20 05/23/2013 10:00 PM CDT Respiratory Rate - - [...] Medications Management 12/05/2012 Disciplines: of home Senior Care medication s Active - 1 problem intervention scheduled/documented in this visit Pulse Oximetry Skilled 12/05/2012 Disciplines: assessment Senior Care and monitoring of O2 saturation s. Active - 1 problem intervention scheduled/documented in this visit Skilled Observation and Skilled 12/05/2012 Assessment nursing Disciplines: observatio Senior Care n [...] treatment plan, and for s/s of complications. documented in this encounter
--- OUTSIDE RECORDS SUMMARY | 2020-03-24 14:20 | XMS REPORT | Encounter Summary ---
Author Author [facility] Organization [facility] Address Unknown Phone Unavailable Care Team Providers Care Rigging Supervisor Name Role Phone Shahram Mccallum MD PCP Unavailable Reason for Visit * Reason Comments Information Encounter Details Care Team Description Date Type Department Beverley Marsh RN Information 05/18/2013 Telephone [facility] [address] [place] [address] Social History Date Tobacco Use [...] Miscellaneous Notes * Telephone Encounter - Beverley Arizmendi RN - 05/18/2013 1:23 PM CDT Received a coumadin management recommendation form wanting Dr. Oconnor's advice. Mg Oconnor reviewed patients chart and states that to his knowledge patient is not on coumadin. And if he is we are not the prescribing physician. Called and info adrianna Robbins LPN of this information, she was very appreciative of information and states she will contact patient. Encouraged her to call me if I could be of any further assistance. Voiced understanding. documented in this encounter Plan of Treatment Not on filedocumented as of this encounter Visit Diagnoses Not on filedocumented in this encounter
--- OUTSIDE RECORDS SUMMARY | 2020-03-24 14:20 | XMS REPORT | Encounter Summary ---
Author Author [facility] Organization [facility] Address Unknown Phone Unavailable Care Team Providers Care Otolaryngologist Name Role Phone Shahram Mccallum MD PCP Unavailable Reason for Visit * Reason Comments Medication Question Surgery 06/02/[address] Percy plasencia advise patient about Plavix? Encounter Details Care Team Description Date Type Department Rosalinda Bal Medication Question (Surgery 06/02/13 gary Mccallum advise patient about Plavix?) 05/25/2013 Telephone [facility] Primar y Care [address] [phone] Social History Date Tobacco Use Types Packs/Day [...] * Telephone Encounter - Rosalinda Bal - 05/25/2013 12:[address] Mccallum stop Plavix one week prior to surgery. Will stop 05/26/13 for manny lamar 06/02/13 and resume after surgery. documented in this encounter Plan of Treatment Not on filedocumented as of this encounter Visit Diagnoses Not on filedocumented in this encounter
--- OUTSIDE RECORDS SUMMARY | 2020-03-24 14:20 | XMS REPORT | Encounter Summary ---
Author Author [facility] Organization [facility] Address Unknown Phone Unavailable Care Team Providers Care Manager Case Name Role Phone Shahram Mccallum MD PCP Unavailable Encounter Details Care Team Description Date Type Department Zeke Abarca MD [address] [place] [address] 05/03/2013 [facility] rvices Encounter [address] [address] Social History Date Tobacco [...] Drop in both eyes 2 times daily. 2012 11/14/2013 albuterol (PROAIR HFA) 90 Take by 0 mcg/Actuation Inhalation inhalation. HFAA inhaler Take 2 Puffs by inhalation every 4 hours as needed for Shortness of Breath or Wheezing. 05/01/2013 03/09/2014 ramipril (ALTACE) 10 mg Take 1 Cap by 30 Cap 11 Oral capsule mouth daily. 05/16/2013 OLANZapine (ZYPREXA) 2.5 Take 2.5 mg 0 mg Oral by mouth tabletIndications: daily at Fracture of metacarpal bedtime. base of right hand, closed 06/22/2013 OLANZapine (ZYPREXA) 2.5 Take 2.5 mg 0 mg Oral tablet by mouth daily at bedtime. 04/11/2013 07/11/2013 LORazepam (ATIVAN) 1 mg Take 1 Tab by 60 Tab 2 Oral tablet mouth 2 times daily. 03/21/2013 04/11/2014 clopidogrel (PLAVIX) 75 Take 1 Tab by 30 Tab 11 mg Oral Tab mouth daily. 03/14/2013 05/16/2013 oxyCODONE-acetaminophen Take 1-2 Tabs 100 Tab 0 (PERCOCET) 5-325 mg Oral by mouth tabletIndications: every 6 hours Staghorn renal calculus as needed for Pain, Moderate. 0.5 tab every 6 hours as needed for pain 03/14/2013 09/12/2013 insulin glargine (LANTUS) 30 units at 10 mL 11 100 unit/mL subCUT Soln bedtime 03/14/2013 07/11/2013 phenytoin sodium extended 200mg am 90 Cap 3 release (DILANTIN) 100 mg 100mg pm Oral capsule 02/28/2013 06/06/2013 zolpidem (AMBIEN) 10 mg Take 1 Tab by 30 Tab 2 Oral tablet mouth nightly as needed for Insomnia. 02/28/2013 03/07/2014 loratadine (CLARITIN) 10 Take 1 [...] mg Oral CpDR mouth daily before breakfast. 11/24/2012 05/16/2013 ondansetron (ZOFRAN ODT) Place 1 Tab 4 Tab 1 4 mg Oral TbDL under tongue every 8 hours as needed for Nausea/Emesis . 10/24/2012 01/03/2015 ibuprofen (MOTRIN) 800 mg Take 1 Tab by 90 Tab 3 Oral tablet mouth 3 times daily with meals. 12/06/2014 FLUoxetine (PROZAC) 20 mg Take by 0 Oral tablet mouth daily. take 2 capsules daily 05/09/2013 simvastatin (ZOCOR) 40 mg Take 40 mg by 0 Oral tablet mouth Daily LATE. 08/03/2012 08/22/2013 fenofibrate Take 1 Tab by 30 Tab 11 nanocrystallized (TRICOR) mouth daily 145 mg Oral tablet with supper. 07/12/2012 07/11/2013 tamsulosin (FLOMAX) 0.4 Take 1 Cap by 30 Cap 11 mg Oral capsule mouth daily. 30 min. After supper 05/03/2012 05/09/2013 pioglitazone (ACTOS) 30 Take 1 Tab by 30 Tab 11 mg Oral tablet mouth daily. 11/10/2011 05/09/2013 nitroglycerin (NITROSTAT) Place 1 Tab 25 Tab 0 0.4 mg Sublingual Subl under tongue every 5 minutes as needed for Chest Pain. 09/10/2010 04/26/2018 MULTIVITAMIN PO Take 1 Tab by 0 mouth daily with lunch. documented as of this encounter Plan of Treatment Not on filedocumented as of this encounter Procedures Comments Procedure Name Priority Date/Time Associated Diag nosis XR CHEST PA OR AP 1 VW Stat 05/03/2013 4:15 AM CDT documented in this encounter Results * XR CHEST PA OR AP (05/03/2013 4:15 AM CDT) Specimen Impressions Performed At Impression: No acute cardiopulmonary disease. INTE [facility] SYSTEM Narrative Performed At AP or PA chest INTERFACE SYSTEM Comparison: December 02 Clinical history: Chest pain. Findings: Exam is somewhat suboptimal secondary to clipping of the right CP angle. The cardiac silhouette and pulmonary vascularity are within normal limits. There are no in filtrates or masses seen. No evidence of pneumothorax. The patient i s status post median sternotomy. Procedure Note Interface, [facility] [place]coming Radiology Results - 05/03/2013 9:10 AM CDT AP or PA chest Comparison: December 02 Clinical history: Chest pain. Findings: Exam is somewhat suboptimal secondary to clipping of the right CP angle. The cardiac silhouette and pulmonary vascularity are within normal limits. There are no infiltrates or masses seen. No evidence of pneumothorax. The patient is status post median sternotomy. IMPRESSION Impression: No acute cardiopulmonary disease. Performing Organization Address [facility] Number INTERFACE SYSTEM INTERFACE SYSTEM Refer to clinic/hospital department documented in this encounter Visit Diagnoses Not on filedocumented in this encounter
--- OUTSIDE RECORDS SUMMARY | 2020-03-24 14:20 | XMS REPORT | Encounter Summary ---
Author Author [facility] Organization [facility] Address Unknown Phone Unavailable Care Team Providers Care Parking Lot Supervisor Name Role Phone Shahram Mccallum MD PCP Unavailable Reason for Visit * Reason Comments Information Encounter Details Care Team Description Date Type Department Kaushik Marsh RN Information 05/09/2013 Telephone [facility] [address] [place] [phone] Social History Date Tobacco Use Types Packs/Day [...] Telephone Encounter - Kaushik Kan RN - 05/09/2013 1:53 PM CDT Returned Mr. Dalton's phone call, states he is having surgery in [place] for k idney stones and that they will be sending Dr. Oconnor some paperwork. He says he just wanted to let me know. I thanked him for calling and said that I will be wa tching for the paperwork. Denies further questions or concerns at this time. * Telephone Encounter - Kaushik Kan RN - 05/09/2013 1:52 PM CDT Message copied by KAUSHIK KAN on WedMay 09, 2013 1:52 PM ------ Message from: JULIENNE WAGNER Created: WedMay 09, 2013 10:58 AM Contact: PT Pt has to have his stones out of his kidney but needs to know when to stop his blood thinner and aspirin. They have questions about the best way to do the surgery. [facility] pt DR. VICTOR IS THE ONE PERFORMING THE SURGERY. SURGERY IS SET TO BE ON 05/08 5. ------ documented in this encounter Plan of Treatment Not on filedocumented as of this encounter Visit Diagnoses Not on filedocumented in this encounter
--- OUTSIDE RECORDS SUMMARY | 2020-03-24 14:20 | XMS REPORT | Encounter Summary ---
Author Author [facility] Organization [facility] Address Unknown Phone Unavailable Care Team Providers Care Business Office Manager Name Role Phone Shahram Mccallum MD PCP Unavailable Reason for Visit * Reason Comments Medication Review Encounter Details Care Team Description Date Type Department Shahram Mccallum MD NO ADDRESS ON FILE Medication Review 05/26/2013 Telephone [facility] Primar y Care [place] [address] [place] [address] Social History Date Tobacco [...] * Telephone Encounter - Nuris Miramontes - 05/26/2013 1:58 PM CDT Mel pharmacist from Pharmacy dept calls stating this pt is schedule for u rology surgery on 06/02/13 and is requesting order from Dr. Mccallum to hold this pts plavix and ASA for [address] Mccallum and order given to Mel. documented in this encounter Plan of Treatment Not on filedocumented as of this encounter Visit Diagnoses Not on filedocumented in this encounter
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
--- OUTSIDE RECORDS SUMMARY | 2020-03-24 14:20 | XMS REPORT | Encounter Summary ---
Author Author [facility] Organization [facility] Address Unknown Phone Unavailable Care Team Providers Care Bumper And Painter Name Role Phone Shahram Mccallum MD PCP Unavailable Reason for Visit * Reason Comments Information Encounter Details Care Team Description Date Type Department Kaushik Marsh RN Information 05/31/2013 Telephone [facility] [address] [place] [address] Social History Date Tobacco Use [...] Telephone Encounter - Kaushik Kan RN - 05/31/2013 2:40 PM CDT Spoke with patient and advised him that he would need to be seen and evaluated b y Dr. Oconnor before he would be able to clear him for surgery since we haven't se en him in quite some time. Pt voiced understanding. I encouraged patient that I would move his appt up if I had any cancellations before his scheduled appt. He was apprecitative. Denies further questions or concerns at this time. * Telephone Encounter - Kaushik Kan RN - 05/31/2013 2:39 PM CDT Message copied by KAUSHIK KAN on WedMay 31, 2013 2:39 PM ------ Message from: NORBERT ZAPIEN Created: WedMay 31, 2013 12:00 PM Pt has kidney stones and is needing to have them removed by Dr Kentrell smith [phone]. Pt has appt 06-19-13 but is wondering if [facility] could clear him wit hout being seen or he we can move his appt up ------ documented in this encounter Plan of Treatment Not on filedocumented as of this encounter Visit Diagnoses Not on filedocumented in this encounter
--- OUTSIDE RECORDS SUMMARY | 2020-03-24 14:20 | XMS REPORT | Encounter Summary ---
Author Author [facility] Organization [facility] Address Unknown Phone Unavailable Care Team Providers Care Investigator Claims Name Role Phone Shahram Mccallum MD PCP Unavailable Reason for Visit * Reason Comments Medication Refill Encounter Details Care Team Description Date Type Department Shahram Mccallum MD NO ADDRESS ON FILE 05/09/2013 Refill [facility] Primar y Care [address] [phone] Social History Date Tobacco Use Types Packs/Day [...]
--- OUTSIDE RECORDS SUMMARY | 2020-03-24 14:20 | XMS REPORT | Encounter Summary ---
Author Author [facility] Organization [facility] Address Unknown Phone Unavailable Care Team Providers Care Audio/Visual Manager Name Role Phone Shahram Mccallum MD PCP Unavailable Reason for Visit * Auth/Cert Referred By Contact Referred To Contact Status Reason Specialty Diagnoses / Procedures [facility] [address] [place] [address] Closed Home Health Encounter Details Care Team Description Date Type Department Rahel Calvillo RN SN - HOME VISIT 06/02/2013 [facility] [address] [place] [address] Social History Date Tobacco Use [...] 12/05/2012 Disciplines: of home [facility] medication s Variance Visit Notes Intervention Associated Status Problem/Go al Medication box Problem: Scheduled Description: Medication SN to fill medication box s every Wednesday. SN to instruct Patient and Caregiver and monitor for proper filling and administration. documented in this encounter Home Health Visit - Actions and Narratives RN placed plavix, multivitamin, & aspir in in medplanner thru noon Tu. Pt will need to apple picking supervisor aleve and he states that he can take th at one from the bottle. RN ordered refill on plavix. Pt states that he will pick that up before Tu. documented in this encounter
--- OUTSIDE RECORDS SUMMARY | 2020-03-24 14:20 | XMS REPORT | Encounter Summary ---
Author Author [facility] Organization [facility] Address Unknown Phone Unavailable Care Team Providers Care Public Health Director Name Role Phone Shahram Mccallum MD PCP Unavailable Reason for Visit * Auth/Cert Referred By Contact Referred To Contact Status Reason Specialty Diagnoses / Procedures [facility] [address] [place] [address] Closed Home Health Encounter Details Care Team Description Date Type Department Karen Booker RN SN - HOME VISIT 05/09/2013 Home Care Visit [facility] [address] [place] [address] Social History Date Tobacco Use [...] Signs Reading Time Taken Comments Vital Sign 126/78 05/09/2013 10:00 PM CDT Blood Pressure - - Pulse 36.2 C (97.2 F) 05/09/2013 10:00 PM CDT Temperature 18 05/09/2013 10:00 PM CDT Respiratory Rate - - [...] 12/05/2012 Plan of Care of Disciplines: patient/ca Long-Term regiver that do not follow the plan of care. Active - 2 problem interventions scheduled/documented in this visit Home Safety Home 12/05/2012 Disciplines: safety Long-Term Active - 1 problem intervention scheduled/documented in this visit Medications Management 12/05/2012 Disciplines: of home Long-Term medication s Active - 1 problem intervention scheduled/documented in this visit Medications Management 04/29/2013 Disciplines: of home Long-Term medication s Active - 1 problem intervention scheduled/documented in this visit Pulse Oximetry Skilled 12/05/2012 Disciplines: assessment Long-Term and monitoring of O2 saturation s. Active - 1 problem intervention scheduled/documented in this visit Skilled Observation and Skilled 12/05/2012 Assessment nursing Disciplines: observatio Long-Term n and [...] for proper filling and administration. Visit on 05/09/2013 by Karen Booker RN [[id number]] at 05/10/2013 8:05:27 AM Discussed medication schedule and use of pain medications when needed. Instructed on new medication Zyprexa including purpose and side effects. Instruct medications Problem: Completed Description: Medication Instruct [...] Visit - Actions and Narratives Patient is to have surgery to remove ki dney stones but must be cleared by primary physician and radiation oncology therapist first. documented in this encounter
--- OUTSIDE RECORDS SUMMARY | 2020-03-24 14:20 | XMS REPORT | Encounter Summary ---
Author Author [facility] Organization [facility] Address Unknown Phone Unavailable Care Team Providers Care Manager Insurance Name Role Phone Shahram Mccallum MD PCP Unavailable Encounter Details Care Team Description Date Type Department Shahram Mccallum MD NO ADDRESS ON FILE [facility] [place] [address] [place] [address] Social History Date Tobacco Use [...] needed for Shortness of Breath or Wheezing. 05/16/2013 06/13/2013 oxyCODONE-acetaminophen Take 1-2 Tabs 100 Tab 0 (PERCOCET) 5-325 mg Oral by mouth tabletIndications: every 6 hours Staghorn renal calculus, as needed for Fracture of metacarpal Pain, Moderate. 0.5 tab every 6 hours as needed for pain 05/09/2013 03/12/2014 simvastatin (ZOCOR) 40 mg TAKE [...] 30 Cap 11 Oral capsule mouth daily. 06/22/2013 OLANZapine (ZYPREXA) 2.5 Take 2.5 mg 0 mg Oral tablet by mouth daily at bedtime. 04/11/2013 07/11/2013 LORazepam (ATIVAN) 1 mg Take 1 Tab by 60 Tab 2 Oral tablet mouth 2 times daily. 03/21/2013 04/11/2014 clopidogrel (PLAVIX) 75 Take 1 Tab by 30 Tab 11 mg Oral Tab mouth daily. 03/14/2013 09/12/2013 insulin glargine (LANTUS) 30 units [...] tablet mouth daily. take 2 capsules daily 08/03/2012 08/22/2013 fenofibrate Take 1 Tab by 30 Tab 11 nanocrystallized (TRICOR) mouth daily 145 mg Oral tablet with supper. 07/12/2012 07/11/2013 tamsulosin (FLOMAX) 0.4 Take 1 Cap by 30 Cap 11 mg Oral capsule mouth daily. 30 min. After supper 09/10/2010 04/26/2018 MULTIVITAMIN PO Take 1 Tab by 0 mouth daily with lunch. documented as of this encounter Plan of Treatment Not on filedocumented as of this encounter Procedures Comments Procedure Name Priority Date/Time Associated Diag nosis XR HAND 3+ VW RIGHT Routine 05/16/2013 Fracture o f metacarpal 9:42 AM CDT base of right hand, closed documented in this encounter Results * XR HAND 3+ VW RIGHT (05/16/2013 9:42 AM CDT) Specimen Impressions Performed At IMPRESSION: Angulated previous fractures necks of t he fourth and INTERFACE SYSTEM fifth metacarpals similar in alignment to 05/01/2013. Increase in bony demineralization may reflect disuse atr ophy or Sudeck's atrophy. Narrative Performed At Right hand series INTERFACE SYSTEM INDICATION: Hand pain Three views obtained compare with 2012. Previous impacted displaced fractures n ecks of the fourth and fifth the carpals again demonstrated. Spotty bony demineralization is increased. No acute appearing fracture or subluxation. No new fractures. Procedure Note Interface, [facility] Incoming Radiology Results - 05/16/2013 10:03 AM CDT Right hand series INDICATION: Hand pain Three views obtained compare with 05/01/2013. Previous impacted displaced fractures necks of the fourth and fifth the carpals again demonstrated. Spotty bony demineralization is increased. No acute appearing fracture or subluxation. No new fractures. IMPRESSION IMPRESSION: Angulated previous fractures necks of the fourth and fifth metacarpals similar in alignment to 05/01/2013. Increase in bony demineralization may reflect disuse atrophy or Sudeck's atrophy. Performing Organization Address City/State/Zipcode Ph one Number INTERFACE SYSTEM INTERFACE SYSTEM Refer to clinic/hospital department documented in this encounter Visit Diagnoses Diagnosis Fracture of metacarpal base of right mackenzie nd, closed Closed fracture of base of other metaca rpal bone(s) documented in this encounter
--- OUTSIDE RECORDS SUMMARY | 2020-03-24 14:20 | XMS REPORT | Encounter Summary ---
Author Author [facility] Organization [facility] Address Unknown Phone Unavailable Care Team Providers Care Fusing Machine Operator Name Role Phone Shahram Mccallum MD PCP Unavailable Reason for Visit * Reason Comments Information Patient reports pain pills missing, no one know where they went. Encounter Details Care Team Description Date Type Department Rosalinda Bal Information (Patient reports pain pills missing, no one know where they went.) 05/25/2013 Telephone [facility] [address] [place] [phone] Social History Date Tobacco Use Types Packs/Day [...] Telephone Encounter - Rosalinda Bal - 05/25/2013 3:21 PM CDT Per Karen police report being filled out. documented in this encounter Plan of Treatment Not on filedocumented as of this encounter Visit Diagnoses Not on filedocumented in this encounter
--- OUTSIDE RECORDS SUMMARY | 2020-03-24 14:20 | XMS REPORT | Encounter Summary ---
Author Author [facility] Organization [facility] Address Unknown Phone Unavailable Care Team Providers Care Music Director Name Role Phone Shahram Mccallum MD PCP Unavailable Reason for Visit * Reason Comments Information Encounter Details Care Team Description Date Type Department Kaushik Marsh RN Information 05/30/2013 Telephone [facility] [address] [place] [address] Social History Date Tobacco Use [...] Telephone Encounter - Kaushik Kan RN - 05/30/2013 1:48 PM CDT Spoke with Tory from Dr. Finney office. She states patient is scheduled for [facility] this Wednesday and is needing a surgical clearance. I informed her that Dr. Oconnor is out of the office until 06-05-13, and that the patient has an upcoming a ppt with Dr. Oconnor 06-12-13. Told her that Dr. Oconnor would need to see the patient before clearance could be determined. Voiced understanding, states they will po stpone surgery until clearance is obtained. * Telephone Encounter - Kaushik Kan RN - 05/30/2013 1:48 PM CDT Message copied by KAUSHIK KAN on WedMay 30, 2013 1:48 PM ------ Message from: CHARU LEMOS Created: Kle[place] May 30, 2013 1:26 PM Contact: TORY VICTOR [phone] WANTS SURG CLEAR FOR THIS Wednesday. ADVISED THAT PT HASN'T SEEN [facility] FOR [facility] & HAS AN APPT FOR 06/19/13 FOR SURG CLEAR. ADVISED THAT C WON'T GIVE SURG CLEAR W/O SEEING PT 1ST. SHE WOULD STILL LIKE YOU TO CALL HER THANK YOU ------ documented in this encounter Plan of Treatment Not on filedocumented as of this encounter Visit Diagnoses Not on filedocumented in this encounter
--- OUTSIDE RECORDS SUMMARY | 2020-03-24 14:20 | XMS REPORT | Encounter Summary ---
Author Author [facility] Organization [facility] Address Unknown Phone Unavailable Care Team Providers Care Soap Drier Tender Name Role Phone Shahram Mccallum MD PCP Unavailable Reason for Visit * Reason Comments Medication Refill Encounter Details Care Team Description Date Type Department Shahram Mccallum MD NO ADDRESS ON FILE 05/09/2013 Refill [facility] Prim[facility] Care [address] [phone] Social History Date Tobacco Use Types Packs/Day [...]
--- OUTSIDE RECORDS SUMMARY | 2020-03-24 14:20 | XMS REPORT | Encounter Summary ---
Author Author [facility] Organization [facility] Address Unknown Phone Unavailable Care Team Providers Care Regional Engineer Name Role Phone Shahram Mccallum MD PCP Unavailable Reason for Visit * Reason Comments Medication Question Encounter Details Care Team Description Date Type Department Walter Oconnor MD [address] [facility] [address] [place]ao [phone] Medication Question 05/22/2013 Telephone [facility] [address] [place] [address] Social History Date Tobacco Use [...] encounter Miscellaneous Notes * Telephone Encounter - Kim Naranjo LPN - 05/22/2013 3:57 PM CDT Wants to know how long can stop Plavix and ASA prior to surgery scheduled in [facility]? documented in this encounter Plan of Treatment Not on filedocumented as of this encounter Visit Diagnoses Not on filedocumented in this encounter
--- OUTSIDE RECORDS SUMMARY | 2020-03-24 14:20 | XMS REPORT | Encounter Summary ---
Author Author [facility] Organization [facility] Address Unknown Phone Unavailable Care Team Providers Care Carpenter Inspector Name Role Phone Shahram Mccallum MD PCP Unavailable Reason for Visit * Auth/Cert Referred By Contact Referred To Contact Status Reason Specialty Diagnoses / Procedures [facility] [address] [place] [address] Closed Home Health Encounter Details Care Team Description Date Type Department Karen Booker RN SN - HOME VISIT 05/16/2013 [facility] [address] [place] [address] Social History Date Tobacco Use [...] visit Home Safety Home 12/05/2012 Disciplines: safety Jail Active - 1 problem intervention scheduled/documented in this visit Medications Management 12/05/2012 Disciplines: of home Jail medication s Active - 1 problem intervention scheduled/documented in this visit Pulse Oximetry Skilled 12/05/2012 Disciplines: assessment Jail and monitoring of O2 saturation s. Active - 1 problem intervention scheduled/documented in this visit Skilled Observation and Skilled 12/05/2012 Assessment nursing Disciplines: observatio Jail n and [...] Health Visit - Actions and Narratives Patient teary eyed. Still upset about c aregiver quitting that he grew quite fond of. He is able to calm himself down and look to the futur e. documented in this encounter
--- OUTSIDE RECORDS SUMMARY | 2020-03-24 14:20 | XMS REPORT | Encounter Summary ---
Author Author [facility] Organization [facility] Address Unknown Phone Unavailable Care Team Providers Care Medical Instrument Cable Fabricator Name Role Phone Shahram Mccallum MD PCP Unavailable Encounter Details Care Team Description Date Type Department Adwoa Lee RN SN - OASIS RECERTIFICATION 05/30/2013 Home Care Visit [facility] [address] [place] [address] Social History Date Tobacco Use [...] Signs Reading Time Taken Comments Vital Sign 110/55 05/30/2013 11:00 PM CDT Blood Pressure - - Pulse 37 C (98.6 F) 05/30/2013 11:00 PM CDT Temperature 18 05/30/2013 11:00 PM CDT Respiratory Rate - - Oxygen Saturation - - Inhaled Oxygen Concentration - - Weight - - Height - - Body Mass Index documented in this encounter Plan of Treatment Not on filedocumented as of this encounter Visit Diagnoses Not on filedocumented in this encounter Home Health Visit - Care Plan Visit Type - SN - OASIS RECERT Discipline - Group Home Status Goals Interventions [...] Home and monitoring of O2 saturation s. Variance Visit Notes Intervention Associated Status Problem/Go [...] need for modifications to the treatment plan. documented in this encounter Home Health Visit - Actions and Narratives Teaching provided for safety to prevent falls, pt. is using a walker when walking. documented in this encounter
[2020-03-24 14:21] LABS: BACTERIA,URINE TRACE /HPF; RBC,URINE RARE /HPF; SQUAMOUS EPITHELIAL CELL,UR RARE /HPF; WBC,URINE 50-100 /HPF
--- OUTSIDE RECORDS SUMMARY | 2020-03-24 14:21 | XMS REPORT | Encounter Summary ---
Author Author [facility] Organization [facility] Address Unknown Phone Unavailable Care Team Providers Care Project Management Instructor Name Role Phone Shahram Mccallum MD PCP Unavailable Reason for Visit * Reason Comments Medication Refill Encounter Details Care Team Description Date Type Department Shahram Mccallum MD NO ADDRESS ON FILE 05/01/2013 Refill [facility] Primar y Care [address] [phone] Social History Date Tobacco Use Types Packs/Day [...]
--- OUTSIDE RECORDS SUMMARY | 2020-03-24 14:21 | XMS REPORT | Encounter Summary ---
Author Author [facility] Organization [facility] Address Unknown Phone Unavailable Care Team Providers Care Figurine Maker Name Role Phone Shahram Mccallum MD PCP Unavailable Encounter Details Care Team Description Date Type Department Shahram Mccallum MD NO ADDRESS ON FILE [facility] [place] [address] [place] [address] Social History Date Tobacco Use [...] nosis XR HAND 3+ VW RIGHT Routine 05/01/2013 Fracture, metacarpal 11:02 AM CDT documented in this encounter Results * XR HAND 3+ VW RIGHT (05/01/2013 11:02 AM CDT) Specimen Impressions Performed At IMPRESSION: No significant change in fourth and fifth metacarpal INTERFACE SYSTEM fractures. Narrative Performed At Right hand INTERFACE SYSTEM HISTORY: Fracture COMPARISON: April 17 Three views are obtained. Again seen are the angulated fractures of the fourth and fifth metacarpal. These do not appear signifi cantly change from prior exam. No other fractures are seen. There is m ild irregularity of the distal radius as may indicate a healed old rad ial fracture. Procedure Note Interface, [facility] Incoming Radiology Results - 05/01/2013 11:16 AM CDT Right hand HISTORY: Fracture COMPARISON: April 17 Three views are obtained. Again seen are the angulated fractures of the fourth and fifth metacarpal. These do not appear significantly change from prior exam. No other fractures are seen. There is mild irregularity of the distal radius as may indicate a healed old radial fracture. IMPRESSION IMPRESSION: No significant change in fourth and fifth metacarpal fractures. Performing Organization Address City/State/Zipcode one Number INTERFACE SYSTEM INTERFACE SYSTEM Refer to clinic/hospital department documented in this encounter Visit Diagnoses Diagnosis Fracture, metacarpal Closed fracture of metacarpal bone(s), site unspecified documented in this encounter
--- OUTSIDE RECORDS SUMMARY | 2020-03-24 14:21 | XMS REPORT | Encounter Summary ---
Author Author [facility] Organization [facility] Address Unknown Phone Unavailable Care Team Providers Care Manager Contract Name Role Phone Shahram Mccallum MD PCP Unavailable Reason for Visit * Auth/Cert Referred By Contact Referred To Contact Status Reason Specialty Diagnoses / Procedures [facility] [address] [place] [address] Closed Home Health Encounter Details Care Team Description Date Type Department Karen Booker RN SN - HOME VISIT 05/02/2013 [facility] [address] [place] [address] Social History Date Tobacco Use [...] visit Home Safety Home 12/05/2012 Disciplines: safety Care Home Active - 1 problem intervention scheduled/documented in this visit Medications Management 12/05/2012 Disciplines: of home Care Home medication s Active - 1 problem intervention scheduled/documented in this visit Medications Management 04/29/2013 Disciplines: of home Care Home medication s Active - 1 problem intervention scheduled/documented in this visit Pulse Oximetry Skilled 12/05/2012 Disciplines: assessment Care Home and monitoring of O2 saturation s. Active - 1 problem intervention scheduled/documented in this visit Skilled Observation and Skilled 12/05/2012 Assessment nursing Disciplines: observatio Care Home n [...] Visit - Actions and Narratives Patient is a lot happier at todays [employer]. Paid caregiver is doing deep cleaning today. They have a schedule in order to get his house rocky tessy up. He has new caregivers to help him. He seems to be very happy with them and there work. Patient does get teary eyed and talks a bout the sand cutter operator telling him that "if his heart gives out there is nothing they can do." Physician not called about pain level a nieves 5 because he had not taken pain pill this am. documented in this encounter
--- OUTSIDE RECORDS SUMMARY | 2020-03-24 14:21 | XMS REPORT | Encounter Summary ---
Author Author [facility] Organization [facility] Address Unknown Phone Unavailable Care Team Providers Care Manager Action Name Role Phone Shahram Mccallum MD PCP Unavailable Reason for Visit * Reason Comments Suicidal Reports that he wants to ki ll himself, but couldn't pull the trigger on the gun. Encounter Details Care Team Description Date Type Department Diabetes mellitus (Primary D x); CAD (coronary artery disease); COPD (chronic obstructive pulmonary disease); Seizure disorder; Depression; Suicidal behavior 04/24/2013 Emergency [facility] Emergency Department [address] [id number] Social History Date Tobacco Use Types Packs/Day [...] Signs Reading Time Taken Comments Vital Sign 138/84 04/24/2013 4:01 PM CDT Blood Pressure 80 04/24/2013 4:01 PM CDT Pulse 36.3 C (97.3 F) 04/24/2013 11:29 AM CDT Temperature 20 04/24/2013 11:29 AM CDT Respiratory Rate 98% 04/24/2013 4:01 PM CDT Oxygen Saturation - - Inhaled Oxygen Concentration 87.1 kg (192 lb) 04/24/2013 11:29 AM CDT Weight 167.6 cm (5' 6") 04/24/2013 11:29 AM CDT Height 30.99 04/24/2013 11:29 AM CDT Body Mass Index documented in [...] needed for Shortness of Breath or Wheezing. 04/11/2013 07/11/2013 LORazepam (ATIVAN) 1 mg Take [...] Tab 11 mg Oral tablet mouth daily. 04/26/2012 05/01/2013 ramipril (ALTACE) 10 mg Take 1 Cap by 30 Cap 11 Oral capsule mouth daily. 11/10/2011 05/09/2013 nitroglycerin (NITROSTAT) Place 1 Tab 25 Tab 0 0.4 mg Sublingual Subl under tongue every 5 minutes as needed for Chest Pain. 09/10/2010 04/26/2018 MULTIVITAMIN PO Take 1 Tab by 0 mouth daily with lunch. documented as of this encounter Procedure Notes * David Ferrer MD - 04/25/2013 9:44 AM CDT Associated Order(s): EKG 12-LEAD [address] [place], [place] [address] Patient Name: OLIVERIO TINSLEY CSN: [id number] : 1950 Provider: David Bernard M.D. Admitted: 04/24/2013 ELECTROCARDIOGRAM DATE OF SERVICE: 04/24/2013 04/24/2013 at 1204. The rhythm is regular, sinus in origin with a rate of 85 be ats per minute. Electrical axis is leftward. Limb leads show low voltage. T w aves are flattened to inverted in lateral limb leads. Compared with previous tr acing dated December 02 2012, there are no major differences. DIAGNOSIS: 1) S inus rhythm, rate 85 beats per minute. 2) Leftward axis. 3) Low voltage limb l matthieu. 4) Nonspecific T wave changes. Dictated by: David Bernard M.D./[employer] D: [id number] V: [id number] cc: Shahram Mccallum MD documented in this encounter ED Notes * Kristina Keller RN - 04/24/2013 3:54 PM CDT Waiting on transfer crew. * Kristina Keller RN - 04/24/2013 3:47 PM CDT Consent for transfer has been signed by pt. Pt agreeable to go to [facility] for fu rther care. Has been cooperative and states that he is feeling better and less like wanting to hurt himself. * Kristina Keller RN - 04/24/2013 3:25 PM CDT Pt's sister here at this time. * Kristina Keller RN - 04/24/2013 2:16 PM CDT Medication list & current labs have been faxed to [facility] at [phone]. * Kristina Keller RN - 04/24/2013 2:09 PM CDT Pt requesting "something to knock me out". * Kristina Keller RN - 04/24/2013 12:55 PM CDT Cup of coffee given to pt per pt request. Pt wanting to go home. Made aware th at we can't let him go home at this time. * Kristina Keller RN - 04/24/2013 12:45 PM CDT Continues to appear to be sleeping. Waiting on lab results. * Kristina Keller RN - 04/24/2013 11:50 AM CDT Officer Cruz gone at this time and pt appears to be sleeping. Room has been [facility]. * Kristina Keller RN - 04/24/2013 11:35 AM CDT Officer Cruz with [employer] here and in room with pt. Pt visiting with officer, more cheerful, but occasionally while start crying. * Katalina Carlisle APRN - 04/24/2013 11:25 AM CDT HISTORY OF PRESENT ILLNESS Oliverio Tinsley, a 62 y.o. male presents to the ED with a Chief Complaint of Meredith icidal Patient is a 62 y.o. male presenting with mental health disorder. The history is provided by the patient and the EMS personnel. Mental Health Disorder Symptom Based Primary symptoms comment: Suicidal ideation this morning. Caregiver recently qu it and this caused sadness. He called Dr Morenos. Here for medical evaluation for psyche inpatient treatment. Denies plan. Later tells nurse that he was go ing to shoot himself. . The current episode started today (Patient had called [facility] Fajardo and while on the phone, the gun that he was holding went off. Police were notified and came to the home. Transported to ED by EMS.). Additional symptoms of the illness do not include no abdominal pain. He admits t o suicidal ideas. He does have a plan (Plan was to shoot himself. Gun went off while talking to Dr Fajardo.) to commit suicide. He contemplates harming himself . He has not already injured self. He has not already injured another person. REVIEW OF SYSTEMS Review of Systems Constitutional: Negative for fever. HENT: Negative for congestion. Respiratory: Negative for cough and shortness of breath. Cardiovascular: Negative for chest pain. Gastrointestinal: Negative for abdominal pain. Genitourinary: Negative for dysuria and difficulty urinating. Psychiatric/Behavioral: Positive for suicidal ideas and behavioral problems. Neg ative for self-injury. The patient is nervous/anxious. All other systems reviewed and are negative. PAST MEDICAL HISTORY REVIEWED Past Medical History Diagnosis Date Wrist sprain [...] 02/01/2009 COLONOSCOPY performed by MARY MOORE at [facility] OR Hx hernia repair 1988 And age 4 Hx lap cholecystectomy 05/17/07 Hx coronary artery bypass graft Hx heart catheterization 04/10 With angioplasty, 2 stents Pr lap,appendectomy 05/28/2012 APPENDECTOMY LAPAROSCOPIC performed by Mary Moore MD at [facility] OR Pr repair umbilical colleen,4+y/o,reduc 05/28/2012 HERNIA UMBILICAL REPAIR performed by Mary Moore MD at [facility] OR Family History Problem Relation Age of Onset Other Mother Blood pressure Diabetes Mother Respiratory Disease Mother Asthma Mother Other Sister Blood pressure Diabetes Sister Respiratory Disease Sister Heart Disease Sister Asthma Sister Lung Cancer Brother Seizures Brother Other Father "brain anuerysm" Healthy Daughter Heart Disease Son Healthy Daughter Healthy Daughter Healthy Son Healthy Son Healthy Son Healthy Son Social History Other Topics Concern Not on file History Social History Main Topics Smoking status: Former Smoker -- 4.00 packs/day for 40 years Types: Cigarettes Quit date: 03/08/1995 Smokeless tobacco: Never Used Alcohol Use: No Drug Use: No Sexually Active: Not Currently -- Female partner(s) Patient Active Problem List Diagnosis Date Noted Diabetes mellitus 04/25/2013 CAD (coronary artery disease) 04/25/2013 COPD (chronic obstructive pulmonary disease) 04/25/2013 Seizure disorder 04/25/2013 Depression 04/25/2013 Suicidal behavior 04/25/2013 Carpal tunnel syndrome 11/30/2012 Ulnar nerve entrapment at wrist 11/30/2012 Osteoarthritis of right knee 10/24/2012 LFT elevation 10/13/2012 Renal stone 10/12/2012 Back pain 10/12/2012 Urinary retention 10/12/2012 Renal stone 10/12/2012 Abdominal pain, suprapubic 09/05/2012 Bradycardia 09/05/2012 Urinary retention 09/05/2012 Tendonitis of foot 07/14/2012 Status post laparoscopic appendectomy 05/28/2012 Umbilical hernia without mention of obstruction or gangrene 05/28/2012 MRSA (methicillin resistant staph aureus) culture positive 09/12/2010 Personal History of Colonic Polyps 02/06/2009 Tubular Adenoma 02/05/2009 Hyperlipidemia 11/12/2008 Cor athrscl-uns vessel Unspecified essential hypertension Other Convulsions Chronic airway obstruction, not elsewhere classified BPH w/o Urinary Obs/LUTS Neurogenic bladder, NOS Unspecified Glaucoma Bipolar Disorder, Unspecified ALLERGIES Codeine; Doxycycline; Phenobarbital; Piperacillin-tazobactam; Terazosin; and Flores ium HOME MEDICATIONS Discharge Medication List as of 04/24/2013 3:41 PM CONTINUE these medications which have NOT CHANGED Details LORazepam (ATIVAN) 1 mg Oral tablet Take 1 Tab by mouth 2 times daily., Disp-60 Tab, R-2 clopidogrel (PLAVIX) 75 mg Oral Tab Take 1 Tab by mouth daily., Disp-30 Tab, R-1 1 insulin glargine (LANTUS) 100 unit/mL subCUT Soln 30 units at bedtime, Disp-10 m L, R-11 phenytoin sodium extended release (DILANTIN) 100 mg Oral capsule 200mg am 100mg pm, Disp-90 Cap, R-3 zolpidem (AMBIEN) 10 mg Oral tablet Take 1 Tab by mouth nightly as needed for In somnia., Disp-30 Tab, R-2 loratadine (CLARITIN) 10 mg Oral tablet Take 1 Tab by mouth daily., Disp-30 Tab, R-11 naproxen sodium 220 mg Oral Cap Take by mouth daily. 2 tablets daily ezetimibe (ZETIA) 10 mg Oral tablet Take 1 Tab by mouth daily at bedtime., Disp- 30 Tab, R-11 bethanechol (URECHOLINE) 25 mg Oral tablet Take 1 Tab by mouth 4 times daily., D isp-120 Tab, R-11 isosorbide mononitrate SR 24 hour (IMDUR) 60 mg Oral tablet Take 1 Tab by mouth 2 times daily., Disp-60 Tab, R-11 esomeprazole (NEXIUM) 40 mg Oral CpDR Take 1 Cap by mouth daily before breakfast ., Disp-30 Cap, R-11 ibuprofen (MOTRIN) 800 mg Oral tablet Take 1 Tab by mouth 3 times daily with delmi ls., Disp-90 Tab, R-3 FLUoxetine (PROZAC) 20 mg Oral tablet Take by mouth daily. take 2 capsules jono y simvastatin (ZOCOR) 40 mg Oral tablet Take 40 mg by mouth Daily LATE. fenofibrate nanocrystallized (TRICOR) 145 mg Oral tablet Take 1 Tab by mouth conor ly with supper., Disp-30 Tab, R-11 tamsulosin (FLOMAX) 0.4 mg Oral capsule Take 1 Cap by mouth daily. 30 min. After supper, Disp-30 Cap, R-11 pioglitazone (ACTOS) 30 mg Oral tablet Take 1 Tab by mouth daily., Disp-30 Tab, R-11 ramipril (ALTACE) 10 mg Oral capsule Take 1 Cap by mouth daily., Disp-30 Cap, R- 11 magnesium oxide 250 mg Oral Tab Take 1 Tab by mouth 3 times daily. ASPIRIN EC 81 mg Oral TbEC Take 81 mg by mouth daily. MULTIVITAMIN PO Take 1 Tab by mouth daily with lunch. BETIMOL 0.5 % OP Drop Administer 1 Drop in both eyes 2 times daily. oxyCODONE-acetaminophen (PERCOCET) 5-325 mg Oral tablet Take 1-2 Tabs by mouth e very 6 hours as needed for Pain, Moderate. 0.5 tab every 6 hours as needed for p ain, Disp-100 Tab, R-0 ondansetron (ZOFRAN ODT) [address] 1 Tab under tongue every 8 hours a s needed for Nausea/Emesis., Disp-4 Tab, R-1 ondansetron (ZOFRAN) 4 mg Oral Tab Take 1 Tab by mouth every 6 hours as needed f or Nausea/Emesis., Disp-15 Tab, R-0 blood sugar diagnostic (ACCU-CHEK ACTIVE TEST) Misc Strp In the am & pm prn, Disp-1 Package, R-0 nitroglycerin (NITROSTAT) 0.[address] 1 Tab under tongue every 5 minutes as needed for Chest Pain., Disp-25 Tab, R-prn AEROBID IN Take 2 Puffs by inhalation 3 times daily. ALBUTEROL IN Take 2 Puffs by inhalation every 6 hours as needed TYLENOL 325 mg Oral Tab Take 1-2 Tabs by mouth every 4 hours as needed for Pain. PHYSICAL EXAM Initial Vitals BP -- Pulse -- Resp -- Temp -- Temp src -- SpO2 -- Physical Exam Nursing note and vitals reviewed. Constitutional: He is oriented to person, place, and time. No distress. HENT: Right Ear: Tympanic membrane normal. Left Ear: Tympanic membrane normal. Nose: Mucosal edema present. Mouth/Throat: Oropharynx is clear and moist and mucous membranes are normal. Eyes: Pupils are equal, round, and reactive to light. Neck: Neck supple. Cardiovascular: Regular rhythm and normal heart sounds. Pulmonary/Chest: Breath sounds normal. Abdominal: Soft. Bowel sounds are normal. He exhibits no distension. There is no tenderness. Musculoskeletal: Normal range of motion. He exhibits no edema. Splint and brendon wrap on the right wrist. Neurological: He is alert and oriented to person, place, and time. No cranial ne rve deficit. Coordination normal. Skin: Skin is warm and dry. Psychiatric: Tearful intermittently during the exam. DIAGNOSTICS LAB: Results for orders placed during the hospital encounter of 04/24/13 (from the pa st 24 hour(s)) ACETAMINOPHEN LEVEL Result Value Range ACETAMINOPHEN LEVEL 0.0 (*) 10 - 30 ug/ml SALICYLATE LEVEL Result Value Range SALICYLATE LEVEL 1.5 (*) 2.8 - 20 mg/dl ETHANOL LEVEL Result Value Range ETHANOL LESS THAN 10 <10 mg/dl CBC WITH DIFFERENTIAL Result Value Range WBC 6.28 3.0 - 10.4 x10E3 RBC 4.71 4.15 - 5.75 x10E6 HEMOGLOBIN 12.9 (*) 13.8 - 17.4 g/dL HEMATOCRIT 38.7 38.6 - 49.4 % MCV 82.2 79 - 100 fL MCH 27.4 (*) 28 - 34 pg MCHC 33.3 31 - 35 g/dL RDW 15.5 (*) 12.1 - 14.1 % PLATELETS 368 148 - 408 x10E3 MPV 6.7 (*) 7.4 - 10.6 fL NEUTROPHILS 74.3 (*) 43 - 73 % LYMPHOCYTES 19.2 19 - 47 % MONOCYTES 4.1 3 - 9 % EOSINOPHILS 2.4 0 - 6 % BASOPHILS 0.1 0 - 1.2 % NEUTROPHIL ABSOLUTE 4.67 1.3 - 7.6 x10E3 LYMPHOCYTE ABSOLUTE 1.20 0.6 - 4.9 x10E3 MONOCYTE ABSOLUTE 0.25 0.1 - 0.9 x10E3 EOSINOPHIL ABSOLUTE 0.15 0.0 - 0.2 x10E3 BASOPHILS ABSOLUTE 0.01 0 - 0.1 x10E3 COMPREHENSIVE METABOLIC PANEL Result Value Range GLUCOSE 174 (*) 70 - 100 mg/dl BUN 8.0 7 - 20 mg/dl CREATININE 0.71 0.67 - 1.17 mg/dl GFR 119 >60 ml/min SODIUM 137 134 - 145 mmol/L POTASSIUM 4.2 3.3 - 4.8 mmol/L CHLORIDE 102 98 - 107 mmol/L CO2 27.4 22 - 31 mmol/L ANION GAP 8 7 - 16 CALCIUM 9.1 8.5 - 10.1 mg/dl ALBUMIN 4.2 3.4 - 5.0 g/dl TOTAL PROTEIN 7.5 6.4 - 8.2 g/dl BILIRUBIN TOTAL 0.4 <1.1 mg/dl ALKALINE PHOSPHATASE 126 50 - 136 IU/L AST 21 10 - 40 IU/L ALT 39 25 - 70 IU/L PHENYTOIN LEVEL, TOTAL Result Value Range PHENYTOIN TOTAL 11.3 10 - 20 ug/ml URINALYSIS WITH REFLEX CULTURE Result Value Range GLUCOSE UA Negative Negative mg/dl BILIRUBIN UA Negative Negative KETONES UA Negative Negative mg/dl SPECIFIC GRAVITY UA 1.003 1.002 - 1.030 PH UA 7.0 PROTEIN UA Negative Negative mg/dl UROBILINOGEN UA <2.0 0.2 - 1.0 EU/dl NITRITE UA Negative Negative BLOOD UA Negative Negative LEUKOCYTE ESTERASE UA Negative Negative COLOR UA Light Yellow CLARITY UA Clear WBC UA 0-2 0 - 5 /HPF RBC UA 0-2 0 - 2 /HPF DRUG SCREEN, URINE Result Value Range AMPHETAMINE QUAL, URINE Negative BARBITURATE QUAL, URINE Negative BENZODIAZEPINE QUAL, URINE Negative COCAINE METAB QUAL URINE Negative CANNABINOIDS QUAL, URINE Negative METHADONE QUAL, URINE Negative OPIATE QUAL, URINE Negative PCP QUAL, URINE Negative RADIOLOGY: EKG: EKG shows no acute changes. PROCEDURES Procedures REEVALUATION MEDICAL DECISION MAKING AND PLAN OF CARE Discharge Medication List as of 04/24/2013 3:41 PM CONTINUE these medications which have NOT CHANGED Details LORazepam (ATIVAN) 1 mg Oral tablet Take 1 Tab by mouth 2 times daily., Disp-60 Tab, R-2 clopidogrel (PLAVIX) 75 mg Oral Tab Take 1 Tab by mouth daily., Disp-30 Tab, R-1 1 insulin glargine (LANTUS) 100 unit/mL subCUT Soln 30 units at bedtime, Disp-10 m L, R-11 phenytoin sodium extended release (DILANTIN) 100 mg Oral capsule 200mg am 100mg pm, Disp-90 Cap, R-3 zolpidem (AMBIEN) 10 mg Oral tablet Take 1 Tab by mouth nightly as needed for In somnia., Disp-30 Tab, R-2 loratadine (CLARITIN) 10 mg Oral tablet Take 1 Tab by mouth daily., Disp-30 Tab, R-11 naproxen sodium 220 mg Oral Cap Take by mouth daily. 2 tablets daily ezetimibe (ZETIA) 10 mg Oral tablet Take 1 Tab by mouth daily at bedtime., Disp- 30 Tab, R-11 bethanechol (URECHOLINE) 25 mg Oral tablet Take 1 Tab by mouth 4 times daily., D isp-120 Tab, R-11 isosorbide mononitrate SR 24 hour (IMDUR) 60 mg Oral tablet Take 1 Tab by mouth 2 times daily., Disp-60 Tab, R-11 esomeprazole (NEXIUM) 40 mg Oral CpDR Take 1 Cap by mouth daily before breakfast ., Disp-30 Cap, R-11 ibuprofen (MOTRIN) 800 mg Oral tablet Take 1 Tab by mouth 3 times daily with delmi ls., Disp-90 Tab, R-3 FLUoxetine (PROZAC) 20 mg Oral tablet Take by mouth daily. take 2 capsules jono y simvastatin (ZOCOR) 40 mg Oral tablet Take 40 mg by mouth Daily LATE. fenofibrate nanocrystallized (TRICOR) 145 mg Oral tablet Take 1 Tab by mouth conor ly with supper., Disp-30 Tab, R-11 tamsulosin (FLOMAX) 0.4 mg Oral capsule Take 1 Cap by mouth daily. 30 min. After supper, Disp-30 Cap, R-11 pioglitazone (ACTOS) 30 mg Oral tablet Take 1 Tab by mouth daily., Disp-30 Tab, R-11 ramipril (ALTACE) 10 mg Oral capsule Take 1 Cap by mouth daily., Disp-30 Cap, R- 11 magnesium oxide 250 mg Oral Tab Take 1 Tab by mouth 3 times daily. ASPIRIN EC 81 mg Oral TbEC Take 81 mg by mouth daily. MULTIVITAMIN PO Take 1 Tab by mouth daily with lunch. BETIMOL 0.5 % OP Drop Administer 1 Drop in both eyes 2 times daily. oxyCODONE-acetaminophen (PERCOCET) 5-325 mg Oral tablet Take 1-2 Tabs by mouth e very 6 hours as needed for Pain, Moderate. 0.5 tab every 6 hours as needed for p ain, Disp-100 Tab, R-0 ondansetron (ZOFRAN ODT) [address] 1 Tab under tongue every 8 hours a s needed for Nausea/Emesis., Disp-4 Tab, R-1 ondansetron (ZOFRAN) 4 mg Oral Tab Take 1 Tab by mouth every 6 hours as needed f or Nausea/Emesis., Disp-15 Tab, R-0 blood sugar diagnostic (ACCU-CHEK ACTIVE TEST) Misc Strp In the am & pm prn, Disp-1 Package, R-0 nitroglycerin (NITROSTAT) 0.[address] 1 Tab under tongue every 5 minutes as needed for Chest Pain., Disp-25 Tab, R-prn AEROBID IN Take 2 Puffs by inhalation 3 times daily. ALBUTEROL IN Take 2 Puffs by inhalation every 6 hours as needed TYLENOL 325 mg Oral Tab Take 1-2 Tabs by mouth every 4 hours as needed for Pain. Last vitals BP 138/84 | Pulse 80 | Temp(Src) 97.3 F (36.3 C) (Tympanic) | R barbara 20 | Ht 5' 6" (1.676 m) | Wt 87.091 kg | BMI 31 kg/m2 | SpO2 98% Coding Medications Administered During the ED Stay from 04/24/2013 1119 to 04/25/2013 0 735 Date/Time Order Dose Route Action 04/24/2013 7964 LORazepam (ATIVAN) tablet 1 mg 1 mg Oral Given CLINICAL IMPRESSION Final diagnoses: Diabetes mellitus CAD (coronary artery disease) COPD (chronic obstructive pulmonary disease) Seizure disorder Depression Suicidal behavior CASE DISCUSSED Dr Fajardo calls the ER about patient and his anticipated arrival. See copy of fax from Dr Fajardo. DISPOSITION, EDUCATION AND MEDICATION RECONCILIATION Medications reconciled. See after visit summary for patient education on discha rged patients. Visited with patient about inpatient treatment plan. Patient says he will sign in voluntarily. 1400: Dr Fajardo office notified. [facility] contacted. Request labs be fa xed over. 1427: C/O severe anxiety. Request something for anxiety. Ativan given. 1530: Jose Lorenzo accepts patient. Accepting physician is Dr Roman. * Kristina Keller RN - 04/24/2013 11:25 AM CDT Pt arrived to ER via [facility] from home. Pt had contacted local psychologist t o tell him goodtalha and that he was "done with it all." Pt admitted that he did have a loaded gun. Local police dept was contacted and found pt at home with lo aded gun. On arrival to the ER, pt alert & oriented, but very tearful. This pt very well known to the nurse, and states that he doesn't want to tell me why he did what he did because he didn't want this nurse to not like him any more. This flex o writer operator sat in chair by pt and held his hand while pt did admit that he is v len depressed over the loss of a former grand daughter in law a couple of weeks ago that he was very close to, then also his cream separator operator primary care nurse practitioner has quit and bobby smith doesn't have anyone that is taking care of him any more. Pt states that he hasn't slept since yesterday. * Kristina Keller RN - 04/24/2013 11:20 AM CDT NovN to room on pt arrival, by EMS. documented in this encounter Plan of Treatment Not on filedocumented as of this encounter Procedures Comments Procedure Name Priority Date/Time Associated Diag nosis EKG 12-LEAD Stat 04/25/2013 2:25 PM CDT URINALYSIS WITH REFLEX Stat 04/24/2013 CULTURE 1:14 PM CDT DRUG SCREEN, URINE Stat 04/24/2013 1:14 PM CDT CBC WITH DIFFERENTIAL Stat 04/24/2013 11:37 AM CDT PHENYTOIN LEVEL, TOTAL Stat 04/24/2013 11:37 AM CDT COMPREHENSIVE METABOLIC Stat 04/24/2013 PANEL 11:37 AM CDT ETHANOL LEVEL Stat 04/24/2013 11:32 AM CDT ACETAMINOPHEN LEVEL Stat 04/24/2013 11:32 AM CDT SALICYLATE LEVEL Stat 04/24/2013 11:32 AM CDT documented in this encounter Results * EKG 12-LEAD (04/25/2013 2:25 PM CDT) Narrative Performed At This result has an attachment that is n ot available. Transcriptions David Bernard MD - 04/25/2013 9:44 AM CDT [address] [place], [place] [address] Patient Name: OLIVERIO TINSLEY CSN: [id number] : 1950 Provider: David Bernard M.D. Admitted: 04/24/2013 ELECTROCARDIOGRAM DATE OF SERVICE: 04/24/2013 04/24/2013 at 1204. The rhythm is regul ar, sinus in origin with a rate of 85 beats per minute. Electrical axis is leftward. Limb leads show low voltage. T waves are flattened to inverted in lateral limb leads. Compared with previous tracing dated December 02 2012, there are no major differences. DIAGNOSIS: 1) Sinus rhythm, rate 85 beats per minute. 2) Leftward axis. 3) Low voltage limb leads. 4) Nonspecific T wave changes. Dictated by: David Bernard M.D./[employer] D: [id number] V: [id number] cc: Shahram Mccallum MD * DRUG SCREEN, URINE (04/24/2013 1:14 PM CDT) AMPHETAMINE Negative [facility] [place] BARBITURATE Negative [facility] [place] BENZODIAZEPINE Negative [facility], [facility] [place] COCAINE METAB Negative [facility] [place] CANNABINOIDS Negative [facility] [place] METHADONE QUAL, Negative [facility] [place] OPIATE QUAL, Negative [facility] [place] PCP QUAL, URINE Negative [facility] Comment: LABORATORY Chain of Custody Handling was [facility] - [facility] not performed on [facility] specimen. This screen will not meet medical-legal requirements. CUTOFF LIMITS Amphetamines 1000 ng/ml Barbiturates 200 ng/ml Benzodiazepines 200 ng/ml Cocaine metabolite 300 ng/ml Marijuana metabolites 50 ng/ml Methadone 300 ng/ml Opiates 2000 ng/ml PCP 25 ng/ml [facility] ACCT#[id number], ,,,, Specimen Urine, clean catch Performing Organization Address City/State/Zipcoms Ph one Number INTERFACE SYSTEM [facility] CLIA# [id number] [place] [address] - [address] * URINALYSIS WITH REFLEX CULTURE (04/24/2013 1:14 PM CDT) Pathologist [facility] GLUCOSE UA Negative Negative mg/dl [facility] [place] BILIRUBIN UA Negative Negative [facility] [place] KETONES UA Negative Negative mg/dl [facility] [place] SPECIFIC 1.003 1.002 - 1.030 [facility] GRAVITY UA [facility] [place] PH UA 7.0 [facility] [place] PROTEIN UA Negative Negative mg/dl [facility] [place] UROBILINOGEN UA <2.0 0.2 - 1.0 EU/dl [facility] [place] NITRITE UA Negative Negative [facility] [place] BLOOD UA Negative Negative [facility] [place] LEUKOCYTE Negative Negative [facility] ESTERASE [facility]A [facility] [place] COLOR UA Light Yellow [facility] [place] CLARITY UA Clear [facility] [place] WBC UA 0-2 0 - 5 /HPF [facility] [place] RBC UA 0-2Comment: GAB JUAN 0 - 2 /HPF [facility] ACCT#[id number], ,,,, LAB[facility]ATORY [facility] [place] Specimen Urine, clean catch Performing Organization Address [facility] Ph one Number INTERFACE SYSTEM [facility] CLIA# [id number] [place] [id number] [place] [address] * PHENYTOIN LEVEL, TOTAL (04/24/2013 11:37 AM CDT) Pathologist [facility] [place] PHENYTOIN TOTAL 11.3Comment: GAB JUAN 10 - 20 ug/ml [facility] [facility] ACCT#[id number], ,,,, LABORATORY SERVICES - [place] Specimen Blood specimen (specimen) Performing Organization Address [facility] one Number INTERFACE SYSTEM [facility] LABORATORY SERVICES CLIA# [id number] [place] [address] * COMPREHENSIVE METABOLIC PANEL (04/24/2013 11:37 AM CDT) Pathologist [facility] GLUCOSE 174 (H) 70 - 100 mg/dl [facility] LABORATORY SERVICES - [place] BUN 8.0 7 - 20 mg/dl [facility] LAB[facility]ATORY SERVICES - [place] CREATININE 0.71 0.67 - 1.17 mg/dl [facility] LABORATORY SERVICES - [place] GFR 119 >60 ml/min [facility] LABORATORY SERVICES - [facility] [place] SODIUM 137 134 - 145 mmol/L [facility] LABORATORY SERVICES - [place] POTASSIUM 4.2 3.3 - 4.8 mmol/L [facility] LABORATORY SERVICES - [facility] [place] CHLORIDE 102 98 - 107 mmol/L [facility] LABORATORY SERVICES - [place] CO2 27.4 22 - 31 mmol/L [facility] LABORATORY SERVICES - [facility] [place] ANION GAP 8 7 - 16 [facility] LABORATORY SERVICES - [facility] [place] CALCIUM 9.1 8.5 - 10.1 mg/dl [facility] LABORATORY SERVICES - [facility] [place] ALBUMIN 4.2 3.4 - 5.0 g/dl [facility] LABORATORY SERVICES - [facility] [place] TOTAL PROTEIN 7.5 6.4 - 8.2 g/dl [facility] LABORATORY SERVICES - [facility] [place] BILIRUBIN TOTAL 0.4 <1.1 mg/dl [facility] LABORATORY SERVICES - [facility] [place] ALKALINE 126 50 - 136 IU/L [facility] PHOSPHATASE LABORATORY SERVICES - [facility] [place] AST 21 10 - 40 IU/L [facility] LABORATORY SERVICES - [facility] [place] ALT 39Comment: MERCEDESGAB LYNN 25 - 70 IU/L [facility] ACCT#[id number], ,,,, LABORATORY SERVICES - [place] Specimen Blood specimen (specimen) Performing Organization Address City/State/Zipcode Ph one Number INTERFACE SYSTEM [facility] LABORATORY SERVICES CLIA# [id number] [place] [address] - [place] [address] [place] [address] * CBC WITH DIFFERENTIAL (04/24/2013 11:37 AM CDT) WBC 6.28 3.0 - 10.4 x10E3 [facility] LABORATORY SERVICES - [facility] [place] RBC 4.71 4.15 - 5.75 x10E6 [facility] LABORATORY SERVICES - [facility] [place] HEMOGLOBIN 12.9 (L) 13.8 - 17.4 g/dL [facility] LABORATORY SERVICES - [facility] [place] HEMATOCRIT 38.7 38.6 - 49.4 % [facility] LABORATORY SERVICES - [facility] [place] MCV 82.2 79 - 100 fL [facility] LABORATORY SERVICES - [facility] [place] MCH 27.4 (L) 28 - 34 pg [facility] LABORATORY SERVICES - [place] MCHC 33.3 31 - 35 g/dL [facility] LABORATORY SERVICES [facility] [place] RDW 15.5 (H) 12.1 - 14.1 % [facility] LABORATORY SERVICES - [facility] [place] PLATELETS 368 148 - 408 x10E3 [facility] LABORATORY SERVICES - [place] MPV 6.7 (L) 7.4 - 10.6 fL [facility] - [place] NEUTROPHILS 74.3 (H) 43 - 73 % [facility] - [place] LYMPHOCYTES 19.2 19 - 47 % [facility] - [place] MONOCYTES 4.1 3 - 9 % [facility] - [place] EOSINOPHILS 2.4 0 - 6 % [facility] - [place] BASOPHILS 0.1 0 - 1.2 % [facility] - [place] NEUTROPHIL 4.67 1.3 - 7.6 x10E3 [facility] - [place] LYMPHOCYTE 1.20 0.6 - 4.9 x10E3 [facility] - [place] MONOCYTE 0.25 0.1 - 0.9 x10E3 [facility] SERVICES - [place] EOSINOPHIL 0.15 0.0 - 0.2 x10E3 [facility] LAB[facility] - [place] BASOPHILS 0.01Comment: [facility] 0 - 0.1 x10E3 [facility] ACCT#[id number], ,,,, LABORATORY SERVICES - [place] Specimen Blood specimen (specimen) Performing Organization Address [facility] one Number INTERFACE SYSTEM [facility] LABORATORY SERVICES CLIA# [id number] [place] [address] [place] [address] [place] [address] * ETHANOL LEVEL (04/24/2013 11:32 AM CDT) ETHANOL LESS THAN 10 <10 mg/dl [facility] Comment: LABORATORY Chain of Custody Handling was SERVICES - [place] not performed on this [place] specimen. This test will not meet medical-legal requirements. [facility] ACCT#[id number], ,,,, Specimen Blood specimen (specimen) Performing Organization Address [facility] one Number INTERFACE SYSTEM [facility] LABORATORY SERVICES CLIA# [id number] [place] [address] [place] [address] [place] [address] * SALICYLATE LEVEL (04/24/2013 11:32 AM CDT) SALICYLATE 1.5 (L)Comment: 2.8 - 20 mg/dl [facility] L[facility] LAB[facility] ACCT#[id number], ,,,, SERVICES - [place] Specimen Blood specimen (specimen) Performing Organization Address [facility]/Zipcode Ph one Number INTERFACE SYSTEM [facility] LABORATORY SERVICES CLIA# [id number] [place] [address] - [address] * ACETAMINOPHEN LEVEL (04/24/2013 11:32 AM CDT) ACETAMINOPHEN 0.0 (L)Comment: 10 - 30 ug/ml [facility] ACCT#[id number], ,,,, SERVICES - [place] Specimen Blood specimen (specimen) Performing Organization Address City/State/Zipcoms Ph one Number INTERFACE SYSTEM [facility] LABORATORY SERVICES CLIA# [id number] [place] [address] - [address] documented in this encounter Visit Diagnoses Diagnosis Diabetes mellitus - Primary Type II or unspecified type diabetes me llitus without mention of complication, not stated as uncontrolled CAD (coronary artery disease) Coronary atherosclerosis of unspecified type of vessel, [place] or graft COPD (chronic obstructive pulmonary dis ease) Chronic airway obstruction, not elsewhe re classified Seizure disorder Unspecified epilepsy without mention of intractable epilepsy Depression Depressive disorder, not elsewhere clas sified Suicidal behavior Unspecified nonpsychotic mental disorde r documented in this encounter Administered Medications Action Date Dose Rate Site Medication Order MAR Action 04/24/2013 2:52 PM CDT 1 mg LORazepam (ATIVAN) tablet 1 mg Given 1 mg, Oral, ONE TIME ONLY, 1 dose, 04/24/13 at 1445, Routine documented in this encounter
--- OUTSIDE RECORDS SUMMARY | 2020-03-24 14:21 | XMS REPORT | Encounter Summary ---
Author Author [facility] Organization [facility] Address Unknown Phone Unavailable Care Team Providers Care Spa Assistant Manager Name Role Phone Shahram Mccallum MD PCP Unavailable Reason for Visit * Reason Comments Follow Up 2 wk Results xray Encounter Details Care Team Description Date Type Department Shahram Mccallum MD NO ADDRESS ON FILE Fracture of metacarpal base of right perez d, closed (Primary Dx) 05/01/2013 Office Visit [facility] [address] [place] [address] Social History Date Tobacco [...] Signs Reading Time Taken Comments Vital Sign 140/80 05/01/2013 11:43 AM CDT Blood Pressure - - Pulse - - Temperature - - Respiratory Rate - - Oxygen Saturation - - Inhaled Oxygen Concentration 89.4 kg (197 lb) 05/01/2013 11:43 AM CDT Weight 167.6 cm (5' 6") 05/01/2013 11:43 AM CDT Height 31.8 05/01/2013 11:43 AM CDT Body Mass Index documented in this encounter Progress Notes * Shahram Mccallum MD - 05/01/2013 8:29 PM CDT SUBJECTIVE:Recent fx 4th metacarpal R [...] 05-01-13: improved pain R hand and 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 Has had [facility] since last seen. He had threatened suicide but says is doing welll now and denies any suicide thoughts or ideations. OUt of splint minimal tender and full rom fingers. xr with healing of fx but some deformity that is not interfering with motion. Will cont splint x 10-14 more days but inc rease motion and strengthening documented in this encounter Plan of Treatment [...] subluxation. No new fractures. Procedure Note [facility] Incoming Radiology Results - 05/16/2013 10:03 [...] or Sudeck's atrophy. Performing Organization Address City/State/Zipcode one Number INTERFACE SYSTEM INTERFACE SYSTEM Refer to clinic/hospital department documented in this encounter Visit Diagnoses Diagnosis Fracture of metacarpal base of right mackenzie nd, closed - Primary Closed fracture of base of other metaca rpal bone(s) documented in this encounter
--- OUTSIDE RECORDS SUMMARY | 2020-03-24 14:21 | XMS REPORT | Encounter Summary ---
Author Author [facility] Organization [facility] Address Unknown Phone Unavailable Care Team Providers Care It Systems Engineer Name Role Phone Shahram Mccallum MD PCP Unavailable Reason for Visit * Auth/Cert Referred By Contact Referred To Contact Status Reason Specialty Diagnoses / Procedures [facility] [address] [place] [address] Closed Home Health Encounter Details Care Team Description Date Type Department Adwoa Lee RN SN - HOME VISIT [facility] [address] [place] [address] Social History Date Tobacco Use [...] Signs Reading Time Taken Comments Vital Sign 130/65 04/18/2013 10:00 PM CDT Blood Pressure - - Pulse 36.2 C (97.2 F) 04/18/2013 10:00 PM CDT Temperature 18 04/18/2013 10:00 PM CDT Respiratory Rate - - [...] Home Health Visit - Actions and Narratives teaching provided for safety to prevent falls, pt. is using a walker when walking. R. hand and lower arm is wrapped because of a wound, pt. states that it is OK. documented in this encounter
--- OUTSIDE RECORDS SUMMARY | 2020-03-24 14:21 | XMS REPORT | Encounter Summary ---
Author Author [facility] Organization [facility] Address Unknown Phone Unavailable Care Team Providers Care Nuclear Chemistry Technician Name Role Phone Shahram Mccallum MD PCP Unavailable Reason for Visit * Auth/Cert Referred By Contact Referred To Contact Status Reason Specialty Diagnoses / Procedures [facility] [address] [place] [address] Closed Home Health Encounter Details Care Team Description Date Type Department Karen Booker RN SN - OASIS TRANSFER W/OUT DC 04/25/[facility] [address] [place] [address] Social History Date Tobacco Use [...] - OASIS TRANS W/OUT DC Discipline - Group Home Status Goals Interventions Problem Descriptio Start Date n Active - 1 problem intervention scheduled/documented in this visit Medications Management 12/05/2012 Disciplines: of home Group Home medication s Variance Visit Notes Intervention Associated Status Problem/Go al Medication box Problem: Scheduled Description: Medication SN to fill medication box s every Wednesday. SN to instruct Patient and Caregiver and monitor for proper filling and administration. documented in this encounter
--- OUTSIDE RECORDS SUMMARY | 2020-03-24 14:21 | XMS REPORT | Encounter Summary ---
Author Author [facility] Organization [facility] Address Unknown Phone Unavailable Care Team Providers Care Well Site Drilling Engineer Name Role Phone Shahram Mccallum MD PCP Unavailable Reason for Visit * Reason Comments Chest Pain Encounter Details Care Team Description Date Type Department Zeke Abarca MD [address] [place] [address] Left shoulder pain (Primary Dx) 05/03/2013 Emergency [facility] Emergency Department [address] [id number] Social History Date Tobacco Use Types Packs/Day [...] Reading Time Taken Comments Vital Sign 112/58 05/03/2013 6:45 AM CDT Blood Pressure 99 05/03/2013 4:04 AM CDT Pulse 37.2 C (98.9 F) 05/03/2013 4:04 AM CDT Temperature 16 05/03/2013 6:45 AM CDT Respiratory Rate 94% 05/03/2013 6:45 AM CDT Oxygen Saturation - - Inhaled Oxygen Concentration 85.7 kg (189 lb) 05/03/2013 4:04 AM CDT Weight 167.6 cm (5' 6") 05/03/2013 4:04 AM CDT Height 30.51 05/03/2013 4:04 AM CDT Body Mass Index documented in this encounter Discharge Instructions * Instructions* Zeke Abarca MD - 05/03/2013 Take your medicines as directed and follow a diabetic diet Follow up with Dr. Mccallum and Dr. Oconnor as needed THANK YOU FOR CHOOSING [facility]! Our goal is to provide you with [...] attachments cannot be sent through Care Everywhere.* SHOULDER PAIN: AFTER YOUR VISIT (PERUVIAN) documented in this encounter Medications at Time [...] Procedure Notes * David Ferrer MD - 05/04/2013 9:50 AM CDT Associated Order(s): EKG 12-LEAD [address] [place] [address] Patient Name: OLIVERIO TINSLEY CSN: [id number] : 1950 Provider: David Bernard M.D. Admitted: 05/03/2013 ELECTROCARDIOGRAM DATE OF SERVICE: 05/03/2013 05/03/2013 at 0408. The rhythm is regular, sinus in origin with a rate of 100 beats per minute. Limb leads show low voltage. QT interval is prolonged for th e rate. Compared with previous tracing dated April 24 2013, electrical axis mackenzie s shifted to normal currently. QT interval is not prolonged previously. DIAGNO SIS: 1) Sinus tachycardia, rate 100 beats per minute. 2) Low voltage limb meggan ds. 3) Prolonged QT interval for rate, possibly due to drug effect and/or elect rolyte-metabolic abnormality. Dictated by: David Bernard M.D./MEDQ D: [id number] V: [id number] cc: MD Zeke Thakkar M.D. documented in this encounter ED Notes * Nayely Duff RN - 05/03/2013 6:28 AM CDT Pt c/o pain still to left arm Dr Enyart notified and orders received. Lab here for blood draw. * Zeke Abarca MD - 05/03/2013 4:32 AM CDT HISTORY OF PRESENT ILLNESS Oliverio Tinsley. HPI Comments: He has had chest pain off and on for a while now but tonight states it got worse to point that he had 1 episode of vomiting and left shoulder pain. He called EMS and has had constant pain since around 230 or 3 am. Patient is a 62 y.o. male presenting with chest pain. The history is provided by the patient, the EMS personnel and medical records. Chest Pain The chest pain began 1 - 2 hours ago. Chest pain occurs constantly. The chest pa in is not changed since onset. Associated with: unknown. The severity of the rah st pain is severe. The quality of the pain is described as similar to previous e pisodes, pressure-like and aching. The pain radiates to the left shoulder and le ft arm. Chest pain is worsened by nothing. Primary symptoms include fatigue (chr onic), shortness of breath (chronic), nausea and vomiting (x 1 episode). Pertine nt negatives for primary symptoms include no fever, no syncope, no cough, no whe ezing, no palpitations, no abdominal pain, no dizziness and no altered mental st atus. Associated symptoms include diaphoresis and weakness (generalized chronic). Pertinent negatives for associated symptoms include no claudication, no lower ex tremity edema, no near-syncope and no numbness. He tried aspirin, nitroglycerin and narcotics (EMS gave him 4 baby aspirin, 8 mg of Morphine and 3 nitroglycerin but he still complains of pain with only slight improvement) for the symptoms. His past medical history is significant for DM, HTN and DE. Risk factor(s) for D VT/PE include smoking. Risk factor(s) for ischemic heart disease include CAD, c oronary artery disease in family, diabetes, dyslipidemia, hypertension, male gen fatuma, obesity, sedentary lifestyle and smoking. The initial location of pain was left deltopectoral (left shoulder). REVIEW OF SYSTEMS Review of Systems Constitutional: Positive for diaphoresis and fatigue (chronic). Negative for fev er and chills. HENT: Negative for sore throat, trouble swallowing, neck pain and neck stiffness . Eyes: Negative for visual disturbance. Respiratory: Positive for shortness of breath (chronic). Negative for cough and wheezing. Cardiovascular: Positive for chest pain. Negative for palpitations, claudication , syncope and near-syncope. Gastrointestinal: Positive for nausea and vomiting (x 1 episode). Negative for a bdominal pain. Genitourinary: Negative for dysuria. Musculoskeletal: Positive for arthralgias (left shoulder pain) and gait problem (chronic). Skin: Negative for rash. Neurological: Positive for weakness (generalized chronic). Negative for dizzines s, numbness and headaches. Psychiatric/Behavioral: Negative for altered mental status. The patient is nervo us/anxious. PAST MEDICAL HISTORY REVIEWED Patient has a past medical history of Wrist sprain (08/10); Contusion, back (); Cataract; Unspecified disease of respiratory system; Glaucoma; Asthma; D iabetes; Seizure disorder; Unspecified disorder of lipoid metabolism; Coronary a rtery disease; Chronic ischemic heart disease, unspecified; Unspecified essentia l hypertension; COPD (chronic obstructive pulmonary disease); and Anxiety. Dana cox's family history includes Asthma in his mother and sister; Diabetes in his m other and sister; Healthy in his daughters and sons; Heart Disease in his sister and son; Lung Cancer in his brother; Other in his father, mother, and sister; R espiratory Disease in his mother and sister; and Seizures in his brother. Carlos wilhelm also has past surgical history that includes surgical other (05/2001); catara ct removal (2000); surgical other (2001); surgical other (1999); surgical other (11/2001); turp (08/2003); surgical other (04/12); surgical other (09/12); surgica l other (08/14); psa (09/13); surgical other (07/11); colonoscopy,diagnostic (01/07); hernia repair (1988); lap cholecystectomy (05/17/07); coronary artery by pass graft; heart catheterization (04/10); lap,appendectomy (05/28/2012); and repa ir umbilical colleen,5+y/o,reduc (05/28/2012). Patient reports that he quit smokin g about 18 years ago. His smoking use included Cigarettes. He has a 160 pack-yea r smoking history. He has never used smokeless tobacco. He reports that he does not currently engage in sexual activity. He reports that he does not drink alcoh ol or use illicit drugs. Patient has Renal stone; Cor athrscl-uns vessel; Unspecified essential hypertens ion; Other Convulsions; Chronic airway obstruction, not elsewhere classified; BP H w/o Urinary Obs/LUTS; Neurogenic bladder, NOS; Unspecified Glaucoma; Bipolar D isorder, Unspecified; Hyperlipidemia; Tubular Adenoma; Personal History of Colon ic Polyps; MRSA (methicillin resistant staph aureus) culture positive; Status po st laparoscopic appendectomy; Umbilical hernia without mention of obstruction or gangrene; Tendonitis of foot; Abdominal pain, suprapubic; Bradycardia; Urinary retention; Back pain; Urinary retention; Renal stone; LFT elevation; Osteoarthri tis of right knee; Carpal tunnel syndrome; Ulnar nerve entrapment at wrist; Diab etes mellitus; CAD (coronary artery disease); COPD (chronic obstructive pulmonar y disease); Seizure disorder; Depression; and Suicidal behavior on his problem l ist. ALLERGIES Codeine; Doxycycline; Phenobarbital; Piperacillin-tazobactam; Terazosin; and Flores ium HOME MEDICATIONS Patient's Home Medications Current Home Medications AEROBID IN ALBUTEROL IN ASPIRIN EC 81 MG ORAL TBEC BETHANECHOL (URECHOLINE) 25 MG ORAL TABLET BETIMOL 0.5 % OP DROP BLOOD SUGAR DIAGNOSTIC (ACCU-CHEK ACTIVE TEST) MISC STRP CLOPIDOGREL (PLAVIX) 75 MG ORAL TAB ESOMEPRAZOLE (NEXIUM) 40 MG ORAL CPDR EZETIMIBE (ZETIA) 10 MG ORAL TABLET FENOFIBRATE NANOCRYSTALLIZED (TRICOR) 145 MG ORAL TABLET FLUOXETINE (PROZAC) 20 MG ORAL TABLET IBUPROFEN (MOTRIN) 800 MG ORAL TABLET INSULIN GLARGINE (LANTUS) 100 UNIT/ML SUBCUT SOLN ISOSORBIDE MONONITRATE SR 24 HOUR (IMDUR) 60 MG ORAL TABLET LORATADINE (CLARITIN) 10 MG ORAL TABLET LORAZEPAM (ATIVAN) 1 MG ORAL TABLET MAGNESIUM OXIDE 250 MG ORAL TAB MULTIVITAMIN PO NAPROXEN SODIUM 220 MG ORAL CAP NITROGLYCERIN (NITROSTAT) 0.4 MG SUBLINGUAL SUBL OLANZAPINE (ZYPREXA) 2.5 MG ORAL TABLET OLANZAPINE (ZYPREXA) 2.5 MG ORAL TABLET ONDANSETRON (ZOFRAN ODT) 4 MG ORAL TBDL ONDANSETRON (ZOFRAN) 4 MG ORAL TAB OXYCODONE-ACETAMINOPHEN (PERCOCET) 5-325 MG ORAL TABLET PHENYTOIN SODIUM EXTENDED RELEASE (DILANTIN) 100 MG ORAL CAPSULE PIOGLITAZONE (ACTOS) 30 MG ORAL TABLET RAMIPRIL (ALTACE) 10 MG ORAL CAPSULE SIMVASTATIN (ZOCOR) 40 MG ORAL TABLET TAMSULOSIN (FLOMAX) 0.4 MG ORAL CAPSULE TYLENOL 325 MG ORAL TAB ZOLPIDEM (AMBIEN) 10 MG ORAL TABLET Medications Modified during this Encounter Medications Discontinued during this Encounter PHYSICAL EXAM INITIAL VS BP: 110/69 mmHg, Pulse: 99 , Resp: 18 , Temp: 98.9 F (37.2 C), Temp src: Tym panic, SpO2: 97 % Physical Exam Nursing note and vitals reviewed. Constitutional: He is oriented to person, place, and time. He appears well-devel oped and well-nourished. He is active and cooperative. Non-toxic appearance. No distress. HENT: Head: Normocephalic and atraumatic. Mouth/Throat: Oropharynx is clear and moist. Neck: Normal range of motion. Neck supple. Cardiovascular: Normal rate, regular rhythm and intact distal pulses. Pulmonary/Chest: Effort normal and breath sounds normal. No respiratory distress . He has no wheezes. He has no rales. He exhibits no tenderness. Abdominal: Soft. Bowel sounds are normal. He exhibits no distension. There is no tenderness. There is no rebound. Musculoskeletal: Normal range of motion. He exhibits tenderness (left shoulder p ain). Neurological: He is alert and oriented to person, place, and time. Skin: Skin is warm and dry. He is not diaphoretic. DIAGNOSTICS LAB: Results for orders placed during the hospital encounter of 05/03/13 (from the [facility] 24 hour(s)) CBC WITH DIFFERENTIAL Result Value Range WBC 6.00 3.0 - 10.4 x10E3 RBC 4.19 4.15 - 5.75 x10E6 HEMOGLOBIN 11.6 (*) 13.8 - 17.4 g/dL HEMATOCRIT 34.7 (*) 38.6 - 49.4 % MCV 82.9 79 - 100 fL MCH 27.6 (*) 28 - 34 pg MCHC 33.3 31 - 35 g/dL RDW 15.5 (*) 12.1 - 14.1 % PLATELETS 304 148 - 408 x10E3 MPV 7.9 7.4 - 10.6 fL NEUTROPHILS 64.4 43 - 73 % LYMPHOCYTES 26.4 19 - 47 % MONOCYTES 7.2 3 - 9 % EOSINOPHILS 1.8 0 - 6 % BASOPHILS 0.3 0 - 1.2 % NEUTROPHIL ABSOLUTE 3.86 1.3 - 7.6 x10E3 LYMPHOCYTE ABSOLUTE 1.58 0.6 - 4.9 x10E3 MONOCYTE ABSOLUTE 0.43 0.1 - 0.9 x10E3 EOSINOPHIL ABSOLUTE 0.11 0.0 - 0.2 x10E3 BASOPHILS ABSOLUTE 0.02 0 - 0.1 x10E3 COMPREHENSIVE METABOLIC PANEL Result Value Range GLUCOSE 303 (*) 70 - 100 mg/dl BUN 15.0 7 - 20 mg/dl CREATININE 0.80 0.67 - 1.17 mg/dl GFR 104 >60 ml/min SODIUM 144 134 - 145 mmol/L POTASSIUM 3.4 3.3 - 4.8 mmol/L CHLORIDE 108 (*) 98 - 107 mmol/L CO2 29.9 22 - 31 mmol/L ANION GAP 6 (*) 7 - 16 CALCIUM 8.5 8.5 - 10.1 mg/dl ALBUMIN 3.7 3.4 - 5.0 g/dl TOTAL PROTEIN 6.9 6.4 - 8.2 g/dl BILIRUBIN TOTAL 0.3 <1.1 mg/dl ALKALINE PHOSPHATASE 114 50 - 136 IU/L AST 20 10 - 40 IU/L ALT 38 25 - 70 IU/L MAGNESIUM LEVEL Result Value Range MAGNESIUM 1.6 (*) 1.8 - 2.4 mg/dl MYOGLOBIN Result Value Range MYOGLOBIN, PLASMA 29 16 - 97 ng/ml TROPONIN Result Value Range TROPONIN I 0.12 0 - 0.4 ng/ml MYOGLOBIN Result Value Range MYOGLOBIN, PLASMA 24 16 - 97 ng/ml TROPONIN Result Value Range TROPONIN I LESS THAN 0.04 0 - 0.4 ng/ml CARDIAC INTERPRETATION (3 HR) Result Value Range INTERPRETATION Test not performed RADIOLOGY: XR CHEST PA OR AP ED Interpretation: No acute process. Stable from Nov 2012 EKG: EKG: unchanged from previous tracings, normal sinus rhythm, nonspecific ST and T waves changes, prolonged QT interval. PROCEDURES Procedures MEDICAL DECISION MAKING AND PLAN OF CARE Check labs and ECG with CXR. Give IVF, Toradol, Norflex and Magnesium IV. Pt reports that Dr. Oconnor has told him there is nothing left to do for his heart but he came to ER emile because he is anxious that he is having a heart attack REEVALUATION 0510 On recheck his pain is now resolved and he has been talking non stop with noah velásquez that came to check on him. He has elevated sugar on labs and his troponin is 0.12. Will repeat enzymes at 3 hour jose to see if there is any change. 0620 Pt complains of hand pain. Will give his home medicine of Percocet 5/325 1 tab po. Awaiting 3 hour set of enzymes 0700 Repeat enzymes are negative. Discharge to home and have him follow up with pcp as needed CASE DISCUSSED Medications Administered During the ED Stay from 05/03/2013 0354 to 05/03/2013 0 706 Date/Time Order Dose Route Action 05/03/2013 044 ketorolac (TORADOL) injection 15 mg 15 mg IV Given 05/03/2013 0513 sodium chloride 0.9% bolus solution 500 mL 0 mL IV Stopped 05/03/2013440 sodium chloride 0.9% bolus solution 500 mL 500 mL IV New Bag 05/03/2013 0513 magnesium sulfate 1 gram/100 mL IVPB 0 mg IV Stopped 05/03/2013 0440 magnesium sulfate 1 gram/100 mL IVPB 1,000 mg IV New Bag 05/03/2013 044 ondansetron (ZOFRAN) 4 mg/2 mL injection 4 mg 4 mg IV Given 05/03/2013 044 orphenadrine citrate (NORFLEX) 30 mg/mL injection 60 mg 60 mg I V Given 05/03/2013 0625 oxyCODONE-acetaminophen (PERCOCET) 5-325 mg per tablet 1 Tab 1 Tab Oral Given . New Prescriptions for this Encounter LAST VITALS BP 112/58 | Pulse 99 | Temp(Src) 98.9 F (37.2 C) (Tympanic) | Resp 16 | Ht 5 ' 6" (1.676 m) | Wt 85.73 kg | BMI 30.52 kg/m2 | SpO2 94% CLINICAL IMPRESSION Final diagnoses: Left shoulder pain MDM Coding Reviewed: vitals, nursing note and previous chart Reviewed previous: labs, ECG and x-ray Interpretation: labs, ECG, x-ray, cardiac monitoring and SP02 DISPOSITION, EDUCATION AND MEDICATION RECONCILIATION Medications reconciled. See after visit summary for patient education on discha rged patients. * Nayely Duff RN - 05/03/2013 4:16 AM CDT Pt given 4 baby aspirins, 8 mg morphine and has had 3 nitro's field captain per ems. * Nayely Duff RN - 05/03/2013 4:14 AM CDT Pt with left shoulder and arm pain per ems. Pt instructed ems and this lyric writer p ain increases with movement, pain started 30 minutes field captain, and is aching and pres sure. documented in this encounter Plan of Treatment Not on filedocumented as of this encounter Procedures Comments Procedure Name Priority Date/Time Associated Diag nosis TELEMETRY REPORT 05/04/2013 2:13 PM CDT EKG 12-LEAD Stat 05/04/2013 12:37 PM CDT CARDIAC ENZYMES Stat 05/03/2013 4:06 PM CDT TROPONIN Stat 05/03/2013 4:06 PM CDT CARDIAC INTERPRETATION (6 Stat 05/03/2013 HR) 10:06 AM CDT TROPONIN Stat 05/03/2013 10:06 AM CDT CARDIAC INTERPRETATION (3 Stat 05/03/2013 HR) 6:34 AM CDT TROPONIN Stat 05/03/2013 6:34 AM CDT MYOGLOBIN Stat 05/03/2013 6:34 AM CDT XR CHEST PA OR AP 1 VW Stat 05/03/2013 4:15 AM CDT CBC WITH DIFFERENTIAL Stat 05/03/2013 4:00 AM CDT TROPONIN Stat 05/03/2013 4:00 AM CDT MYOGLOBIN Stat 05/03/2013 4:00 AM CDT MAGNESIUM LEVEL Stat 05/03/2013 4:00 AM CDT COMPREHENSIVE METABOLIC Stat 05/03/2013 PANEL 4:00 AM CDT documented in this encounter Results * TELEMETRY REPORT (05/04/2013 2:13 PM CDT) Narrative Performed At This result has an attachment that is n ot available. * EKG 12-LEAD (05/04/2013 12:37 PM CDT) Narrative Performed At This result has an attachment that is n ot available. Transcriptions David Bernard MD - 05/04/2013 9:50 AM CDT [address] [place] [address] Patient Name: OLIVERIO TINSLEY CSN: [id number] : 1950 Provider: David Bernard M.D. Admitted: 05/03/2013 ELECTROCARDIOGRAM DATE OF SERVICE: 05/03/2013 05/03/2013 at 0408. The rhythm is regu lar, sinus in origin with a rate of 100 beats per minute. Limb leads show low voltage. QT interval is prolonged for the rate. Compared with previous tracing dated April 24 2013, electrical axis has shifted to normal currently. QT interval is not prolonged previously. DIAGNOSIS: 1) Sinus tachycardia, rate 100 beats per minute. 2) Low voltage limb leads. 3) Prolonged QT interval for rate, possibly due to drug effect and/or electrolyte-metabolic abnormality. Dictated by: David Bernard M.D./MEDQ D: [id number] V: [id number] cc: MD Zeke Thakkar M.D. * CARDIAC ENZYMES (05/03/2013 4:06 PM CDT) INTERPRETATION See below. [facility] Comment: LABORATORY INTERPRETATION - 05/04/13 0736 [facility] Normal myoglobin, [facility] troponin-I results on initial testing, normal at three hours, probably within normal limits. Linda Elise. [facility] AC[facility]#[id number], ,,,, Specimen Narrative Performed At CARDIAC TROP-12HR TROP-12 HR from [id number]. INT ERFACE SYSTEM CARDIAC Final: FINAL from [id number] . Performing Organization Address [facility] one [facility] LABORATORY SERVICES CLIA# [id number] [place] [address] INTERFACE SYSTEM Refer to clinic/hospital department * TROPONIN (05/03/2013 4:06 PM CDT) TROPONIN I Test not performedComment: 0 - 0.4 ng/ml [facility] ACCT#[id number], ,,,, SERVICES - [place] Specimen Narrative Performed At CARDIAC TROP-12HR TROP-12 HR from [id number]. INT ERCE SYSTEM CARDIAC Final: FINAL from [id number] . Performing Organization Address [facility] LABORATORY SERVICES CLIA# [id number] [place], [place] [id number] [place] [address] INTERFACE SYSTEM Refer to clinic/hospital department * CARDIAC INTERPRETATION (6 HR) (05/03/2013 10:06 AM CDT) INTERPRETATION Test not performedComment: [facility] ACCT#[id number], ,,,, SERVICES [facility] Specimen Narrative Performed At CARDIAC TROP-6HR TROP-6 HR from [id number]. INTER FACE SYSTEM CARDIAC Interim: CAR6 from 625:[id number] S. Performing Organization Address [facility] one Number [facility] LABORATORY SERVICES CLIA# [id number] [place] [address] INTERFACE SYSTEM Refer to clinic/hospital department * TROPONIN (05/03/2013 10:06 AM CDT) TROPONIN I Test not performedComment: 0 - 0.4 ng/ml [facility] LABORATORY ACCT#[id number], ,,,, SERVICES [facility] FAYE Specimen Narrative Performed At CARDIAC TROP-6HR TROP-6 HR from [id number]. INTER FACE SYSTEM CARDIAC Interim: CAR6 from 625:[id number] S. Performing Organization Address [facility] Number [facility] SYSTEM [facility] LABORATORY SERVICES CLIA# [id number] [place] [id number] [place] [address] INTERFACE SYSTEM Refer to clinic/hospital department * CARDIAC INTERPRETATION (3 HR) (05/03/2013 6:34 AM CDT) INTERPRETATION Test not performedComment: [facility] LABORAT[facility] ACCT#[id number], ,,,, SERVICES - [facility] FAY[facility] Specimen Narrative Performed At CARDIAC NYLA-3HR NYLA-3 HR from [id number]. INTERFA CE SYSTEM CARDIAC TROP-3HR TROP-3 HR from 625:[id number]. CARDIAC Interim: CAR3 from 625:[id number] S. Performing Organization Address [facility] SYSTEM [facility] LABORATORY SERVICES CLIA# [id number] [place] [address] INTERFACE SYSTEM Refer to clinic/hospital department * TROPONIN (05/03/2013 6:34 AM CDT) TROPONIN I LESS THAN 0.04Comment: 0 - 0.4 ng/ml [facility] LABORATORY ACCT#[id number], ,,,, SERVICES [facility] Specimen Narrative Performed At CARDIAC NYLA-3HR NYLA-3 HR from [id number]. INTERFA CE SYSTEM CARDIAC TROP-3HR TROP-3 HR from 06:[id number]. CARDIAC Interim: CAR3 from 625:[id number] S. Performing Organization Address [facility] one Number INTERFACE SYSTEM [facility] LABORATORY SERVICES CLIA# [id number] [place], [place] [id number] [place] [address] INTERFACE SYSTEM Refer to clinic/hospital department * MYOGLOBIN (05/03/2013 6:34 AM CDT) MYOGLOBIN, 24Comment: GAB JUAN 16 - 97 ng/ml M [facility] PLASMA ACCT#[id number], ,,,, LABORATORY SERVICES - [place] Specimen Narrative Performed At CARDIAC NYLA-3HR NYLA-3 HR from [id number]. INTERFA CE SYSTEM CARDIAC TROP-3HR TROP-3 HR from 625:[id number]. CARDIAC Interim: CAR3 from 625:[id number] S. Performing Organization Address [facility] Ph one Number INTERFACE SYSTEM [facility] LABORATORY SERVICES CLIA# [id number] GAB [place] [address] - [place] [address] [facility] INTERFACE SYSTEM Refer to clinic/hospital department * XR CHEST PA OR AP (05/03/2013 [...] status post median sternotomy. Procedure Note Interface, [facility] Incoming Radiology Results - 05/03/2013 [...] No acute cardiopulmonary disease. Performing Organization Address [facility] one Number INTERFACE SYSTEM INTERFACE SYSTEM Refer to clinic/hospital department * TROPONIN (05/03/2013 4:00 AM CDT) TROPONIN I 0.12Comment: GAB JUAN 0 - 0.4 ng/ml [facility] AC[facility]#[id number], ,,,, LABORATORY SERVICES - [place] Specimen Narrative Performed At CARDIAC NYLA-0HR NYLA-0 HR from [id number]. INTERFA CE SYSTEM CARDIAC TROP-0HR TROP-0 HR from 625:[id number]. Performing Organization Address [facility] Ph one Number INTERFACE SYSTEM [facility] LABORATORY SERVICES CLIA# [id number] [place] [address] INTERFACE SYSTEM Refer to clinic/hospital department * MYOGLOBIN (05/03/2013 4:00 AM CDT) MYOGLOBIN, 29Comment: [place], [place] 16 - 97 ng/ml M ERCY PLASMA ACCT#[id number], ,,,, LABORATORY SERVICES - [place] Specimen Narrative Performed At CARDIAC NYLA-0HR NYLA-0 HR from [id number]. INTERFA CE SYSTEM CARDIAC TROP-0HR TROP-0 HR from 625:[id number]. Performing Organization Address [facility] one Number INTERFACE SYSTEM [facility] LABORATORY SERVICES CLIA# [id number] [place] [address] INTERFACE SYSTEM Refer to clinic/hospital department * MAGNESIUM LEVEL (05/03/2013 4:00 AM CDT) MAGNESIUM 1.6 (L)Comment: 1.8 - 2.4 mg/dl [place] LABORATORY ACCT#[id number], ,,,, SERVICES - [place] Specimen Blood specimen (specimen) Performing Organization Address [facility] one Number INTERFACE SYSTEM [facility] LABORATORY SERVICES CLIA# [id number] [place] [address] [place] [address] * COMPREHENSIVE METABOLIC PANEL (05/03/2013 4:00 AM CDT) GLUCOSE 303 (H) 70 - 100 mg/dl [facility] LABORATORY SERVICES - [place] BUN 15.0 7 - 20 mg/dl [facility] LABORATORY SERVICES - [place] CREATININE 0.80 0.67 - 1.17 mg/dl [facility] LABORATORY SERVICES - [place] GFR 104 >60 ml/min [facility] LABORATORY SERVICES - [place] SODIUM 144 134 - 145 mmol/L [facility] LABORATORY SERVICES - [place] POTASSIUM 3.4 3.3 - 4.8 mmol/L [facility] LABORATORY SERVICES - [place] CHLORIDE 108 (H) 98 - 107 mmol/L [facility] LABORATORY SERVICES - [place] CO2 29.9 22 - 31 mmol/L [facility] LABORATORY SERVICES - [place] ANION GAP 6 (L) 7 - 16 [facility] LABORATORY SERVICES - [place] CALCIUM 8.5 8.5 - 10.1 mg/dl [facility] - [place] ALBUMIN 3.7 3.4 - 5.0 g/dl [facility] - [place] TOTAL PROTEIN 6.9 6.4 - 8.2 g/dl [facility] - [place] BILIRUBIN TOTAL 0.3 <1.1 mg/dl [facility] - [place] ALKALINE 114 50 - 136 IU/L [facility] - [place] AST 20 10 - 40 IU/L [facility] - [place] ALT 38Comment: [facility] 25 - 70 IU/L M ERC ACCT#[id number], ,,,, LABORATORY SERVICES - [place] Specimen Blood specimen (specimen) Performing Organization Address City/State/[facility] Ph one Number INTERFACE SYSTEM [facility] CLIA# [id number] [place] [address] - [place] [address] [facility] * CBC WITH DIFFERENTIAL (05/03/2013 4:00 AM CDT) WBC 6.00 3.0 - 10.4 x10E3 [facility] - [place] RBC 4.19 4.15 - 5.75 x10E6 [facility] - [place] HEMOGLOBIN 11.6 (L) 13.8 - 17.4 g/dL [facility] - [place] HEMATOCRIT 34.7 (L) 38.6 - 49.4 % [facility] - [place] MCV 82.9 79 - 100 fL [facility] - [place] MCH 27.6 (L) 28 - 34 pg [facility] - [place] MCHC 33.3 31 - 35 g/dL [facility] - [place] RDW 15.5 (H) 12.1 - 14.1 % [facility] - [facility] FAYE PLATELETS 304 148 - 408 x10E3 [facility] - [place] MPV 7.9 7.4 - 10.6 fL [facility] - [place] NEUTROPHILS 64.4 43 - 73 % [facility] - [place] LYMPHOCYTES 26.4 19 - 47 % [facility] - [place] MONOCYTES 7.2 3 - 9 % [facility] - [place] EOSINOPHILS 1.8 0 - 6 % [facility] - [place] BASOPHILS 0.3 0 - 1.2 % [facility] - [place] NEUTROPHIL 3.86 1.3 - 7.6 x10E3 [facility] - [place] LYMPHOCYTE 1.58 0.6 - 4.9 x10E3 [facility] - [place] MONOCYTE 0.43 0.1 - 0.9 x10E3 [facility] - [place] EOSINOPHIL 0.11 0.0 - 0.2 x10E3 [facility] - [place] BASOPHILS 0.02Comment: [facility] LYNN 0 - 0.1 x10E3 [facility] ACCT#[id number], ,,,, LABORATORY SERVICES - [place] Specimen Blood specimen (specimen) Performing Organization Address City/State/[facility] Hospitalcode Ph one Number INTERFACE SYSTEM [facility] CLIA# [id number] [place] [address] - [place] [address] [facility] documented in this encounter Visit Diagnoses Diagnosis Left shoulder pain - Primary Pain in joint, shoulder region documented in this encounter Administered Medications Action Date Dose Rate Site Medication Order MAR Action 05/03/2013 4:41 AM CDT 15 mg ketorolac (TORADOL) injection 15 mg Given 15 mg, IV, ONE TIME ONLY, 1 dose, Wed05/03/13 at 0445, Routine 05/03/2013 4:40 AM CDT 1,000 mg 100 mL/hr magnesium sulfate 1 gram/100 mL IVPB New Bag 1,000 mg, IV, ONE TIME ONLY, 1 dose, We d 05/03/13 at 044, Routine 05/03/2013 4:42 AM CDT 4 mg ondansetron (ZOFRAN) 4 mg/2 mL injection Given 4 mg 4 mg, IV, ONE TIME ONLY, 1 dose, Wed05/03/13 at 044, Routine 05/03/2013 4:41 AM CDT 60 mg orphenadrine citrate (NORFLEX) 30 mg/mL Given injection 60 mg 60 mg, IV, ONE TIME ONLY, 1 dose, Wed05/03/13 at 0445, Routine 05/03/2013 6:25 AM CDT 1 Tablet oxyCODONE-acetaminophen (PERCOCET) 5-325 Given mg per tablet 1 Tab 1 Tablet, Oral, ONE TIME ONLY, 1 dose, 05/03/13 at 0630, Routine 05/03/2013 4:41 AM CDT 500 mL 1000 mL/hr sodium chloride 0.9% bolus solution 500 New Bag mL 500 mL, IV, ONE TIME ONLY, 1 dose, 05/03/13 at 0445, at 1,000 mL/hr, Administer over 30 Minutes, Routine documented in this encounter
--- OUTSIDE RECORDS SUMMARY | 2020-03-24 14:21 | XMS REPORT | Encounter Summary ---
Author [facility] Address Unknown Phone Unavailable Care Team Providers Care Varnish Thinner Name Role Phone Shahram Mccallum MD PCP Unavailable Reason for Visit * Auth/Cert Referred By Contact Referred To Contact Status Reason Specialty Diagnoses / Procedures [facility] [address] [place] [address] Closed Home Health Encounter Details Care Team Description Date Type Department Karen Booker RN SN - OASIS RESUMPTION OF CARE 04/29/2013 [facility] [address] [place] [address] Social History Date Tobacco [...] Reading Time Taken Comments Vital Sign 138/80 04/29/2013 10:00 PM CDT Blood Pressure - - Pulse 36.1 C (97 F) 04/29/2013 10:00 PM CDT Temperature 20 04/29/2013 10:00 PM CDT Respiratory Rate - - Oxygen Saturation - - Inhaled Oxygen Concentration - - Weight - - Height - - Body Mass Index documented in this encounter Plan of Treatment Not on filedocumented as of this encounter Visit Diagnoses Not on filedocumented in this encounter Home Health Visit - Care Plan Visit Type - SN - OASIS JOCE Discipline - Prison Status Goals Interventions Problem Descriptio Start Date n Active - 1 problem intervention scheduled/documented in this visit Failure to Comply With Behaviors 12/05/2012 Plan of Care of Disciplines: patient/ca Prison regiver that do not follow the plan of care. Active - 2 problem interventions scheduled/documented in this visit Home Safety Home 12/05/2012 Disciplines: safety Prison Active - 1 problem intervention scheduled/documented in this visit Medications Management 12/05/2012 Disciplines: of home Prison medication s Active - 2 problem interventions scheduled/documented in this visit Medications Management 04/29/2013 Disciplines: of home Prison medication s Active - 1 problem intervention scheduled/documented in this visit Pulse Oximetry Skilled 12/05/2012 Disciplines: assessment Prison and monitoring of O2 saturation s. Active - 3 problem interventions scheduled/documented in this visit Skilled Observation and Skilled 12/05/2012 Assessment nursing Disciplines: observatio Prison n and [...] for changes in the plan of care. Visit on 04/29/2013 by Karen Booker RN [[id number]] at 04/29/2013 11:49:44 AM Medication reconciliation done with hospital discharge med [...] overall correct predic tion rate of 90%. Instructed on high risk medications inc luding side effects and how and when to report problems. Instructed on constipation care and con stipation as a side effect to pain medication. Instructed on diabetic diet, daily foot inspection. Instructed on fall risk and fall precau tions. Physician not called about pain level a nieves 5 because he hasn't taken any pain medication today. Instructed on signs and symptoms to rep ort and who to report to. Patient has not checked blood sugar sin ce coming home from the hospital. documented in this encounter
--- OUTSIDE RECORDS SUMMARY | 2020-03-24 14:21 | XMS REPORT | Encounter Summary ---
Author Author [facility] Organization [facility] Address Unknown Phone Unavailable Care Team Providers Care Answering Service Telephone Operator Name Role Phone Shahram Mccallum MD PCP Unavailable Encounter Details Care Team Description Date Type Department Rosalinda Bal 05/01/2013 Orders Only [facility] Primar y Care [place] [address] [place] [phone] Social History Date Tobacco Use Types Packs/Day [...]
--- OUTSIDE RECORDS SUMMARY | 2020-03-24 14:21 | XMS REPORT | Encounter Summary ---
Author Author [facility] Organization [facility] Address Unknown Phone Unavailable Care Team Providers Care Solar Electric Installer Name Role Phone Shahram Mccallum MD PCP Unavailable Encounter Details Care Team Description Date Type Department Shahram Mccallum MD NO ADDRESS ON FILE [facility] [address] [place] [address] Social History Date Tobacco Use [...] nosis XR HAND 3+ VW RIGHT Routine 04/17/2013 Fracture o f metacarpal of 10:26 AM CDT right hand, closed documented in this encounter Results * XR HAND 3+ VW RIGHT (04/17/2013 10:26 AM CDT) Specimen Impressions Performed At IMPRESSION: Fourth and fifth metacarpal fractures. He aled old distal INTERFACE SYSTEM radial fracture. Narrative Performed At Right hand: INTERFACE SYSTEM HISTORY: Fracture metacarpal Comparison to April 04 Two views are obtained. There is fracture of the distal aspect of both the fourth and fifth metacarpal with angulation convex dorsa lly. Fractures do not appear significantly changed from prior exam. There is sclerosis seen in the distal radius consistent with an old ra dial fracture. There are degenerative changes. No bony masses ar e seen. Procedure Note Oliverio Muhammad MD - 04/17/2013 1:34 PM CDT Right hand: HISTORY: Fracture metacarpal Comparison to April 04 Two views are obtained. There is fracture of the distal aspect of both the fourth and fifth metacarpal with angulation convex dorsally. Fractures do not appear significantly changed from prior exam. There is sclerosis seen in the distal radius consistent with an old radial fracture. There are degenerative changes. No bony masses are seen. IMPRESSION IMPRESSION: Fourth and fifth metacarpal fractures. Healed old distal radial fracture. Performing Organization Address City/State/Zipcode Ph one Number INTERFACE SYSTEM INTERFACE SYSTEM Refer to clinic/hospital department documented in this encounter Visit Diagnoses Diagnosis Fracture of metacarpal of right hand, c losed Closed fracture of metacarpal bone(s), site unspecified documented in this encounter
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
--- OUTSIDE RECORDS SUMMARY | 2020-03-24 14:22 | XMS REPORT | Encounter Summary ---
Author Author [facility] Organization [facility] Address Unknown Phone Unavailable Care Team Providers Care Inspector Wire Products Name Role Phone Shahram Mccallum MD PCP Unavailable Encounter Details Care Team Description Date Type Department Karen Booker RN SN - HOME VISIT [facility] [address] [place] [address] Social History Date Tobacco Use [...] Signs Reading Time Taken Comments Vital Sign 106/68 03/28/2013 12:00 AM CDT Blood Pressure - - Pulse 36.1 C (97 F) 03/28/2013 12:00 AM CDT Temperature 18 03/28/2013 12:00 AM CDT Respiratory Rate - - [...] modifications to the treatment plan. Visit on 03/28/2013 by Karen Booker RN [[id number]] at 03/28/2013 4:35:38 PM Patient states that he has not checked his blood sugar in the last week. Instructed on importance of checking blood sugar on a regular basis. Skilled observation and Problem: Completed assessment general Skilled assessment Observatio Description: n and SN to perform general Assessment assessment to include vital signs, and temperature; General assessment of systems: pulmonary, cardiovascular, endocrine and integumentary and report any abnormalities or concerns to the physician. documented in this encounter
--- OUTSIDE RECORDS SUMMARY | 2020-03-24 14:22 | XMS REPORT | Encounter Summary ---
Author Author [facility] Organization [facility] Address Unknown Phone Unavailable Care Team Providers Care Pants Maker Name Role Phone Shahram Mccallum MD PCP Unavailable Reason for Visit * Reason Comments Medication Refill Encounter Details Care Team Description Date Type Department Shahram Mccallum MD NO ADDRESS ON FILE 04/11/2013 Refill [facility] Primar y Care [address] [phone] Social History Date Tobacco Use Types Packs/Day [...]
--- OUTSIDE RECORDS SUMMARY | 2020-03-24 14:22 | XMS REPORT | Encounter Summary ---
Author Author [facility] Organization [facility] Address Unknown Phone Unavailable Care Team Providers Care Community Engagement Manager Name Role Phone Shahram Mccallum MD PCP Unavailable Encounter Details Care Team Description Date Type Department 04/04/2013 Emergency [facility] Emergency Department [address] [phone] Social History Date Tobacco Use Types Packs/Day [...] needed for Shortness of Breath or Wheezing. 03/21/2013 04/11/2014 clopidogrel (PLAVIX) 75 Take 1 [...] 0 Oral Cap by mouth daily . 01/10/2013 04/11/2013 LORazepam (ATIVAN) 1 mg Take 1 Tab by 60 Tab 2 Oral tablet mouth 2 times daily. 01/03/2013 01/12/2014 ezetimibe (ZETIA) 10 mg Take [...]
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
--- OUTSIDE RECORDS SUMMARY | 2020-03-24 14:22 | XMS REPORT | Encounter Summary ---
Author Author [facility] Organization [facility] Address Unknown Phone Unavailable Care Team Providers Care Chainstitch Seat Joiner Name Role Phone Shahram Mccallum MD PCP Unavailable Encounter Details Care Team Description Date Type Department Karen Booker RN SN - HOME VISIT [facility] [address] [place] [address] Social History Date Tobacco Use [...] pain level a nieves 5 because patient is out of his pain medication. To miner pick new script this afternoon. Patient fell last night while he was as sisting in moving some pipe. Pipe was stuck, came loose and he fell over when that happened. Fell o nto right side ane elbow. Scraped right elbow and scratch on right knee.Instructed on fall precautio ns and fall prevention with verbalization of understanding. documented in this encounter
--- OUTSIDE RECORDS SUMMARY | 2020-03-24 14:22 | XMS REPORT | Encounter Summary ---
Author Author [facility] Organization [facility] Address Unknown Phone Unavailable Care Team Providers Care Gas Fitter Helper Name Role Phone Shahram Mccallum MD PCP Unavailable Reason for Visit * Reason Comments Medication Refill Encounter Details Care Team Description Date Type Department Shahram Mccallum MD NO ADDRESS ON FILE 03/21/[address] [facility] Primar y Care [address] [phone] Social History Date Tobacco Use Types Packs/Day [...]
--- OUTSIDE RECORDS SUMMARY | 2020-03-24 14:22 | XMS REPORT | Encounter Summary ---
Author Author [facility] Organization [facility] Address Unknown Phone Unavailable Care Team Providers Care Barrel And Receiver Aligner Name Role Phone Shahram Mccallum MD PCP Unavailable Encounter Details Care Team Description Date Type Department Blayne Alberts, DO [address] [facility] [employer] [address] [place] [phone] Marika Swann, Occupational Therapist Marika Madsen, Occupational Therapist 03/13/2013 [facility] ort Encounter [facility] [address] [place] [address] Social History Date Tobacco Use [...] needed for Shortness of Breath or Wheezing. 02/28/2013 06/06/2013 zolpidem (AMBIEN) 10 mg Take 1 Tab by 30 Tab 2 Oral tablet mouth nightly as needed for Insomnia. 02/28/2013 03/07/2014 loratadine (CLARITIN) 10 Take 1 Tab by 30 Tab 11 mg Oral tablet mouth daily. 02/07/2013 03/14/2013 oxyCODONE-acetaminophen Take 1-2 Tabs 100 Tab 0 (PERCOCET) 5-325 mg Oral by mouth tabletIndications: every 6 hours Staghorn renal calculus as needed for Pain, Moderate. 0.5 tab every 6 hours as needed for pain 11/27/2016 naproxen sodium 220 mg Take 440 [...] 8 hours as needed for Nausea/Emesis . 11/02/2012 03/14/2013 phenytoin sodium extended 200mg am 90 Cap 3 release (DILANTIN) 100 mg 100mg pm Oral capsule 10/24/2012 01/03/2015 ibuprofen (MOTRIN) 800 mg Take 1 Tab by 90 Tab 3 Oral tablet mouth 3 times daily with meals. 12/06/2014 FLUoxetine (PROZAC) 20 mg Take by 0 Oral tablet mouth daily. take 2 capsules daily 05/09/2013 simvastatin (ZOCOR) 40 mg Take 40 mg by 0 Oral tablet mouth Daily LATE. 03/14/2013 insulin glargine (LANTUS) Inject 30 0 100 unit/mL subCUT Soln Units by subcutaneous injection daily. 08/03/2012 08/22/2013 fenofibrate Take 1 Tab by [...] 30 Cap 11 Oral capsule mouth daily. 03/01/2012 03/21/2013 clopidogrel (PLAVIX) 75 Take 1 Tab by 30 Tab 11 mg Oral Tab mouth daily. 11/10/2011 05/09/2013 nitroglycerin (NITROSTAT) Place [...]
--- OUTSIDE RECORDS SUMMARY | 2020-03-24 14:22 | XMS REPORT | Encounter Summary ---
Author Author [facility] Organization [facility] Address Unknown Phone Unavailable Care Team Providers Care Mechanical Inspector Name Role Phone Shahram Mccallum MD PCP Unavailable Encounter Details Care Team Description Date Type Department Karen Booker RN SN - HOME VISIT 03/21/2013 [facility] [address] [place] [address] Social History Date Tobacco Use [...] Signs Reading Time Taken Comments Vital Sign 132/70 03/21/2013 12:00 PM CDT Blood Pressure - - Pulse 36.1 C (97 F) 03/21/2013 12:00 PM CDT Temperature 18 03/21/2013 12:00 PM CDT Respiratory Rate - - Oxygen [...] Health Visit - Actions and Narratives Patient reports that pain is much impro katie. He is now requiring less than 1 pain pill per day. Patient reports that he keeps forgettin g to check his blood sugars. States that his last blood sugar was 206 about 3 nights ago at bedtime. documented in this encounter
--- OUTSIDE RECORDS SUMMARY | 2020-03-24 14:22 | XMS REPORT | Encounter Summary ---
Author Author [facility] Address Unknown Phone Unavailable Care Team Providers Care Slot Technician Name Role Phone Shahram Mccallum MD PCP Unavailable Reason for Visit * Reason Comments Medication Refill Encounter Details Care Team Description Date Type Department Shahram Mccallum MD NO ADDRESS ON FILE 03/14/2013 Refill [facility] Primar y Care [address] [phone] Social History Date Tobacco Use Types Packs/Day [...]
--- OUTSIDE RECORDS SUMMARY | 2020-03-24 14:22 | XMS REPORT | Encounter Summary ---
Author Author [facility] Organization [facility] Address Unknown Phone Unavailable Care Team Providers Care Ditching Machine Engineer Name Role Phone Shahram Mccallum MD PCP Unavailable Encounter Details Care Team Description Date Type Department Gianfranco Alberts, DO [address] [facility] [address] [place] [phone] Marika Swann, Occupational Therapist Marika Madsen, Occupational Therapist 03/15/2013 [facility] ort Encounter [facility] [address] [place] [address] Social History Date Tobacco Use [...] needed for Shortness of Breath or Wheezing. 03/14/2013 05/16/2013 oxyCODONE-acetaminophen Take 1-2 Tabs 100 [...] with lunch. documented as of this encounter Miscellaneous Notes * Therapy Treatment - Marika Swann, Occupational Therapist - 03/15/2013 2:55 PM CDT Physician: DR. GIANFRANCO ALBERTS DO - Start of Services:01/24/2013Date of D/C: 03/15/2013 Diagnosis/Reason for Treatment: L carpal tunnel release, guyons canal release, t family assessment worker finger release of digits 3,4,5 DISCHARGE REPORT Compliance: Patient attended 11 out of 16 sessions. With: 3 Cancellations and 2 No shows Discharge Status: FUNCTION COMMENTS ADLs able to complete as needed IADLs Phani to complete as needed with same assistance as prior to injury Strength improving L fraud analyst 30lbs L pincer: 6 L tripod: 6 Lateral pinch: 11lbs ROM Fingers flex to palm Wrist extension: 45 degrees Wrist flexion: 70 degrees Neurological No complaints Pain 3/10 when stiff 0-1/10 after completing 5 minutes of simple ROm Other Progress: Goals Not Met: Wrist extension AROM to 50 Goals Met : Patient Goal: regain function of L hand and decreased pain Patient able to tolerate fraud analyst/pinch measurements with healed incisions Pain 1/10 at rest and 5/10 with activity Patient report completion of finger ROM Pain 0/10 at rest Pain 1/10 with ADLs Manage buttons/fasteners x 5 with no pain Wrist flexion AROM to 70 Functional supination to near 90 degrees All fingers flex to palm Reason for Discharge: [x] Patient's Goal met, therapy no longer required[] Patient choice to discontinue therapy [ ] Physician choice to discontinue therapy[ ] Lack of com pliance (see above) [ ] Lack of progress towards strength goals [ ] Other: Comments: Call [phone] with any questions: __Marika Swann, OT _ Therapist Signature 3:0 0 PM CDT * Therapy Evaluation - Marika Swann, Occupational Therapist - 03/01/2013 3:07 PM CDT [facility] [address] [place] [id number] , Occupational Therapy Plan of Care - Date: 03/01/2013 Oliverio Dalton Physician: DR. GIANFRANCO ALBERTS DO - Diagnosis: P/O carpal tunnel release, Guyons canal release, trigger finger relea se of digits 3,4,5 Treatment Diagnosis: Pain, decreased strength and ROM Date Of Injury: alen 01/12/2013 Accident/Injury: No Frequency: 2 x week for 4 weeks Treatments: Further Evaluation: Modalities: For: Pain and Edema: Ultrasound Ice Heat Procedures: Manual Therapy to effect changes in the soft tissues, articular structures, neur al or vascular systems using joint and soft tissue mobilization and stretching o f connective and soft tissues to improve function Therapeutic Exercise to develop strength, endurance, range of motion, and flexib ility Modalities can be used to deliver deep heat, increase circulation, reduce pain, soften scar tissues or reduce swelling and inflammation AND/OR to decrease pain, muscle spasm and/or inflammation or assist with muscle strengthening and retrai mariana Moist heat/Cold to reduce pain, increase circulation and/or decrease inflammatio n Therapeutic Activity: to increase functional skills through learning, re-learnin g or acquiring new skills to increase mobility and ADL function in day to day li ving Massage: Increase circulation, improve tissue extensibility and increase joint m obility and muscle function Rehabilitation Potential: good Goals: Increase strength to improve functional activities and mobility Increase ROM to allow for functional activities and mobility Decrease pain to allow participation in functional activities, ADLs and life int erests Increase functional status to promote independence Decrease risk factors for further injury or complications As a licensed occupational therapist I have completed an evaluation for the abov e patient and believe the following intervention/s are indicated for treatment o f this patient. Therapists Signature Marika Swann OT As the physician over-seeing the ongoing care of the above patient, I have read and reviewed this Plan of Care and deem it medically necessary and appropriate f or this patient. Please review and sign for agreement with this Plan of Care. By signing, I am indicating that I am the provider whose NPI is listed. DR. GIANFRANCO ALBERTS DO - Physician's Signature Please return vi a fax to [phone] 3:0 8 PM CDT documented in this encounter Plan of Treatment Not on filedocumented as of this encounter Visit Diagnoses Not on filedocumented in this encounter
--- OUTSIDE RECORDS SUMMARY | 2020-03-24 14:22 | XMS REPORT | Encounter Summary ---
Author Author [facility] Organization [facility] Address Unknown Phone Unavailable Care Team Providers Care Spanisher Name Role Phone Shahram Mccallum MD PCP Unavailable Reason for Visit * Reason Comments Medication Refill Encounter Details Care Team Description Date Type Department Rosalinda Bal Staghorn renal calculus (Primary Dx) 03/14/2013 Refill [facility] [address] [place] [phone] Social History Date Tobacco Use Types Packs/Day [...] * Telephone Encounter - Rosalinda Bal - 03/14/2013 10:[address] Mccallum may refill Percocet #100. documented in this encounter Plan of Treatment Not on filedocumented as of this encounter Visit Diagnoses Diagnosis Staghorn renal calculus - Primary Calculus of kidney documented in this encounter
--- OUTSIDE RECORDS SUMMARY | 2020-03-24 14:22 | XMS REPORT | Encounter Summary ---
Author Author [facility] Organization [facility] Address Unknown Phone Unavailable Care Team Providers Care Construction Consultant Name Role Phone Shahram Mccallum MD PCP Unavailable Reason for Visit * Auth/Cert Referred By Contact Referred To Contact Status Reason Specialty Diagnoses / Procedures [facility] [address] [place] [address] Closed Home Health Encounter Details Care Team Description Date Type Department Karen Booker RN SN - HOME VISIT 04/11[facility] [address] [place] [address] Social History Date Tobacco Use [...] visit Home Safety Home 12/05/2012 Disciplines: safety Mcfp Active - 1 problem intervention scheduled/documented in this visit Medications Management 12/05/2012 Disciplines: of home Mcfp medication s Active - 1 problem intervention scheduled/documented in this visit Pulse Oximetry Skilled 12/05/2012 Disciplines: assessment Mcfp and monitoring of O2 saturation s. Active - 1 problem intervention scheduled/documented in this visit Skilled Observation and Skilled 12/05/2012 Assessment nursing Disciplines: observatio Mcfp n and [...] Home Health Visit - Actions and Narratives Hasn't checked blood sugar since fractu ring fingers on right hand. Paid caregivers have not assisted patient with checking his blood sugars. Instructed patient to have caregivers assist him with checking his blood sugars every morning before breakfast. Enzo seems to be handling his grandd aughters a little better this week. States "I think I will live." Talking about past and good experiences in the past. Patients pain level in right hand is 8 and right knee is 3. Physician not called about pain level as he had just taken his pain medication. documented in this encounter
--- OUTSIDE RECORDS SUMMARY | 2020-03-24 14:22 | XMS REPORT | Encounter Summary ---
Author Author [facility] Organization [facility] Address Unknown Phone Unavailable Care Team Providers Care Repair Technician Name Role Phone Shahram Mccallum MD PCP Unavailable Encounter Details Care Team Description Date Type Department Macy Vaughn, TEXTILE DESIGNER [address] [place] [address] 04/04/2013 [facility] Encounter [place] [address] [place] [address] Social History Date Tobacco Use [...] nosis XR HAND 3+ VW RIGHT Routine 04/04/2013 Hand injur y 4:06 PM CDT documented in this encounter Results * XR HAND 3+ VW RIGHT (04/04/2013 4:06 PM CDT) Specimen Impressions Performed At IMPRESSION: Post right changes involving the fourth a nd fifth INTERFACE SYSTEM metacarpals as described with probable old fifth metacarpal fracture with new impacted fracture involving th e fourth metacarpal when compared with a prior wrist series. Narrative Performed At Right hand series INTERFACE SYSTEM INDICATION: Hand pain AP lateral and oblique views the right hand obtained. Comparison with prior wrist exam of 02/08/2013. There francis ears be an old fracture involving the fifth metacarpal which wa s apparent on the prior wrist series there is a new fracture involvin g the distal aspect of the fourth metacarpal with impaction as the prior wrist series. Procedure Note Interface, [facility] Incoming Radiology Results - 04/04/2013 4:17 PM CDT Right hand series INDICATION: Hand pain AP lateral and oblique views the right hand obtained. Comparison with prior wrist exam of 02/08/2013. There appears be an old fracture involving the fifth metacarpal which was apparent on the prior wrist series there is a new fracture involving the distal aspect of the fourth metacarpal with impaction as the prior wrist series. IMPRESSION IMPRESSION: Post right changes involving the fourth and fifth metacarpals as described with probable old fifth metacarpal fracture with new impacted fracture involving the fourth metacarpal when compared with a prior wrist series. Performing Organization Address [facility] one Number INTERFACE SYSTEM INTERFACE SYSTEM Refer to clinic/hospital department documented in this encounter Visit Diagnoses Diagnosis Hand injury Injury, other and unspecified, hand, ex cept finger documented in this encounter
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
--- OUTSIDE RECORDS SUMMARY | 2020-03-24 14:22 | XMS REPORT | Encounter Summary ---
Author [facility] Address Unknown Phone Unavailable Care Team Providers Care Slitter Operator Name Role Phone Shahram Mccallum MD PCP Unavailable Reason for Visit * Auth/Cert Referred By Contact Referred To Contact Status Reason Specialty Diagnoses / Procedures [facility] [address] [place] [address] Closed Home Health Encounter Details Care Team Description Date Type Department Karen Booker RN SN - OASIS RECERTIFICATION [facility]/04[facility] [address] [place] [address] Social History Date Tobacco Use [...] Signs Reading Time Taken Comments Vital Sign 132/80 04/04/2013 12:00 PM CDT Blood Pressure - - Pulse 36.6 C (97.8 F) 04/04/2013 12:00 PM CDT Temperature 18 04/04/2013 12:00 PM CDT Respiratory Rate - - [...] familiar with the test. Seconds to Complete: 25 Walking aid used? No Older adults (age 65+) who took 13.5 se conds or longer to perform the TUG were classified as fallers, with an overall correct predic tion rate of 90%. Instructed on constipation care and con stipation as a side effect to pain medication. Instructed on fall risk and fall precau tions. Instructed on high risk medications inc luding side effects and how and when to report problems. Instructed on signs and symptoms to rep ort and who to report to. documented in this encounter
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
--- OUTSIDE RECORDS SUMMARY | 2020-03-24 14:23 | XMS REPORT | Encounter Summary ---
Author Author [facility] Organization [facility] Address Unknown Phone Unavailable Care Team Providers Care Automotive Parts Counter Person Name Role Phone Shahram Mccallum MD PCP Unavailable Reason for Referral * Eval and Treat (Routine) Referred By Contact Referred To Contact Status Reason Specialty Diagnoses / Procedures Shahram Mccallum MD NO ADDRESS ON FILE Kentrell Santizo MD [address] [facility] [address] [place] [address] Closed Urology Diagnoses Kidney stone Encounter Details Care Team Description Date Type Department Rosalinda Bal Kidney stone (Primary Dx) 02/17/[address] [facility] [place] [address] [place] [address] Social History Date Tobacco Use [...] Name Type Priority Associated Diag noses Ordered: 02/17/2013 AMB REFERRAL TO UROLOGY Outpatient Routine Kidney stone Referral documented as of this encounter Visit Diagnoses Diagnosis Kidney stone - Primary Calculus of kidney documented in this encounter
--- OUTSIDE RECORDS SUMMARY | 2020-03-24 14:23 | XMS REPORT | Encounter Summary ---
Author Author [facility] Organization [facility] Address Unknown Phone Unavailable Care Team Providers Care Wound Nurse Name Role Phone Shahram Mccallum MD PCP Unavailable Reason for Referral * Outpatient Services (Routine) Referred By Contact Referred To Contact Status Reason Specialty Diagnoses / Procedures Self, Aries Montelongo MD [address] [place] [address] Closed Diagnoses Head injury P rocedures CT HEAD WO CONTRAST Reason for Visit * Reason Comments Fall fell over a rug at home 2 h rs ago, hitting head on stove, c/o back and rt wrist pain Encounter Details Care Team Description Date Type Department Self, Aries Montelongo MD [address] [place] [address] Fall (Primary Dx); Wrist pain, acute; Head injury 02/08/2013 Office Visit [facility] [place] [address] [place] [address] Social History Date Tobacco Use [...] Signs Reading Time Taken Comments Vital Sign 124/64 02/08/2013 2:53 PM CDT Blood Pressure - - Pulse - - Temperature - - Respiratory Rate - - Oxygen Saturation - - Inhaled Oxygen Concentration 85.7 kg (189 lb) 02/08/2013 2:53 PM CDT Weight 167.6 cm (5' 6") 02/08/2013 2:53 PM CDT Height 30.51 02/08/2013 2:53 PM CDT Body Mass Index documented in this encounter Progress Notes * Self, Aries Montelongo MD - 02/08/2013 3:12 PM CDT HISTORY OF PRESENT ILLNESS Oliverio Dalton, a 62 y.o. male. Fall This is a new problem. The current episode started 1 to 2 hours ago. The problem has not changed since onset.Associated symptoms include headaches. Pertinent ne gatives include no chest pain, no abdominal pain and no shortness of breath. The symptoms are aggravated by nothing. The symptoms are relieved by nothing. He has tried nothing for the symptoms. Wrist Pain This is a new problem. The current episode started 1 to 2 hours ago. The problem occurs constantly. The problem has not changed since onset.The pain is present in the right wrist. The quality of the pain is described as aching. The pain is moderate. There has been a history of trauma. Chief Complaint Patient presents with Fall fell over a rug at home 2 hrs ago, hitting head on stove, c/o back and rt wris t pain Oliverio Dalton is a 62 y.o. male with the following history as recorded in [facility]: Patient Active Problem List Diagnoses Date Noted Carpal tunnel syndrome 11/30/2012 Ulnar nerve entrapment [...] bladder, NOS Unspecified Glaucoma Bipolar Disorder, Unspecified Current Outpatient Prescriptions on File Prior to Visit Medication Sig Dispense Refill oxyCODONE-acetaminophen (PERCOCET) 5-325 mg Oral tablet Take 1-2 Tabs by henrik th every 6 hours as needed for Pain, Moderate. 0.5 tab every 6 hours as needed f or pain 100 Tab 0 ciprofloxacin (CIPRO) 500 mg Oral tablet Take 1 Tab by mouth 2 times daily f or 7 days. 14 Tab 0 naproxen sodium 220 mg Oral Cap Take by mouth daily. 2 tablets daily LORazepam (ATIVAN) 1 mg Oral tablet Take 1 Tab by mouth 2 times daily. 60 T ab 2 ezetimibe (ZETIA) 10 mg Oral tablet Take [...] daily before break fast. 30 Cap 11 zolpidem (AMBIEN) 10 mg Oral tablet Take 1 Tab by mouth nightly as needed fo r Insomnia. 30 Tab 2 ondansetron (ZOFRAN ODT) [address] 1 Tab under tongue every 8 karly rs as needed for Nausea/Emesis. 4 Tab 1 phenytoin sodium extended release (DILANTIN) 100 mg Oral capsule 200mg am 10 0mg pm 90 Cap 3 ondansetron (ZOFRAN) 4 mg Oral Tab Take 1 Tab by mouth every 6 hours as need ed for Nausea/Emesis. 15 Tab 0 ibuprofen (MOTRIN) 800 mg Oral tablet Take 1 Tab by mouth 3 times daily with meals. 90 Tab 3 FLUoxetine (PROZAC) 20 mg Oral tablet Take by mouth daily. take 2 capsules daily simvastatin (ZOCOR) 40 mg Oral tablet Take 40 mg by mouth Daily LATE. blood sugar diagnostic (ACCU-CHEK ACTIVE TEST) Misc Strp In the am & pm prn 1 Package 0 insulin glargine (LANTUS) 100 unit/mL subCUT Soln Inject 30 Units by subcuta neous injection daily. fenofibrate nanocrystallized (TRICOR) 145 mg Oral tablet Take 1 Tab by mouth daily with supper. 30 Tab 11 tamsulosin (FLOMAX) 0.4 mg Oral capsule Take 1 Cap by mouth daily. 30 min. A fter supper 30 Cap 11 pioglitazone (ACTOS) 30 mg Oral tablet Take 1 Tab by mouth daily. 30 Tab 1 1 ramipril (ALTACE) 10 mg Oral capsule Take 1 Cap by mouth daily. 30 Cap 11 clopidogrel (PLAVIX) 75 mg Oral Tab Take 1 Tab by mouth daily. 30 Tab 11 loratadine (CLARITIN) 10 mg Oral tablet Take 1 Tab by mouth daily. 30 Tab 11 nitroglycerin (NITROSTAT) 0.[address] 1 Tab under tongue ev len 5 minutes as needed for Chest Pain. 25 Tab prn magnesium oxide 250 mg Oral Tab Take [...] 4 hours as needed for P ain. Allergies: Codeine; Doxycycline; Phenobarbital; Piperacillin-tazobactam; Terazos in; and Valium Past Medical History Diagnosis Date Wrist sprain 08/10 Rt. Contusion, back 08/16/03 Fall Cataract Unspecified disease of respiratory system Glaucoma Asthma Diabetes Seizure disorder Unspecified disorder of lipoid metabolism Coronary artery disease Chronic ischemic heart disease, unspecified Unspecified essential hypertension COPD (chronic obstructive pulmonary disease) Past Surgical History Procedure Date Hx surgical other 05/2001 4 bypass [...] 02/01/2009 COLONOSCOPY performed by BEULAH ZHOU at [facility] OR Hx hernia repair 1988 And age 4 Hx lap cholecystectomy 05/17/07 Hx coronary artery bypass graft Hx heart catheterization 04/10 With angioplasty, 2 stents Pr lap,appendectomy 05/28/2012 APPENDECTOMY LAPAROSCOPIC performed by Beulah Zhou MD at [facility] OR Pr repair umbilical colleen,5+y/o,reduc 05/28/2012 HERNIA UMBILICAL REPAIR performed by Beulah Zhou MD at [facility] [place] Family History Problem Relation Age of Onset Other Mother Blood pressure Diabetes Mother Respiratory Disease Mother Asthma Mother Other Sister Blood pressure Diabetes Sister Respiratory Disease Sister Heart Disease Sister Asthma Sister Lung Cancer Brother Seizures Brother Other Father "brain anuerysm" Healthy Daughter Heart Disease Son Healthy Daughter Healthy Daughter Healthy Son Healthy Son Healthy Son Healthy Son History Substance Use Topics Smoking status: Former Smoker -- 4.0 packs/day for 40 years Types: Cigarettes Quit date: 03/08/1995 Smokeless tobacco: Never Used Alcohol Use: No REVIEW OF SYSTEMS Review of Systems Respiratory: Negative for shortness of breath. Cardiovascular: Negative for chest pain. Gastrointestinal: Negative for abdominal pain. Neurological: Positive for headaches. PHYSICAL EXAM BP 124/64 | Ht 5' 6" (1.676 m) | Wt 189 lb (85.73 kg) | BMI 30.51 kg/m2 Physical Exam Constitutional: He is oriented to person, place, and time. He appears well-devel oped and well-nourished. No distress. HENT: Head: Normocephalic and atraumatic. Eyes: Conjunctivae are normal. Pupils are equal, round, and reactive to light. Neck: Normal range of motion. Neck supple. Cardiovascular: Normal rate and regular rhythm. No murmur heard. Pulmonary/Chest: Effort normal and breath sounds normal. Abdominal: Soft. Bowel sounds are normal. Musculoskeletal: Normal range of motion. He exhibits tenderness. He exhibits no edema. Neurological: He is alert and oriented to person, place, and time. No cranial ne rve deficit. Skin: Skin is warm and dry. Psychiatric: He has a normal mood and affect. ASSESSMENT and PLAN: 1. Fall (E888.9) 2. Wrist pain, acute (719.43) XR WRIST 3+ VW RIGHT 3. Head injury (959.01) CT HEAD WO CONTRAST Pt reports fall from standing position, but struck his head (occiput) on his old gas stove moving it six inches. Afterwards he had trouble staying awake and ac tually fell asleep. Mild nausea, but no shortness of breath or chest pain; Berry pierre review xr and CT and make appropriate recommendations. We reviewed in home safety, particularly fall risks; he will get rid of the thro w rugs. Supportive care discussed in detail, including use of over the counter medications to alleviated symptoms. Discussed with the patient and all questione d fully answered. He will call me if any problems arise. Plan of care reviewed w ith patient in detail. documented in this encounter Plan of Treatment Not on filedocumented as of this encounter Results * CT HEAD WO CONTRAST (02/08/2013 3:34 PM CDT) Specimen Impressions Performed At IMPRESSION: No acute post traumatic abnormality. I NTERFACE SYSTEM Narrative Performed At CT head without contrast INTERFACE SYSTEM INDICATION: Head injury Noncontrast 5 mm axial images were obta ined and there are no prior exams for comparison. The ventricles and sulci appear within normal limits for the patient's age. There is no evidence for acute or chronic hemorrhage or infarction. No abnormal fluid collectio ns. No hydrocephalus or mass effect. No calvarial abnormality. Visualized paranasal sinuses and mastoi d air cells appear clear. Procedure Note Interface, [facility] Incoming Radiology Results - 02/08/2013 3:[address] head without contrast INDICATION: Head injury Noncontrast 5 mm axial images were obtained and there are no prior exams for comparison. The ventricles and sulci appear within normal limits for the patient's age. There is no evidence for acute or chronic hemorrhage or infarction. No abnormal fluid collections. No hydrocephalus or mass effect. No calvarial abnormality. Visualized paranasal sinuses and mastoid air cells appear clear. IMPRESSION IMPRESSION: No acute post traumatic abnormality. Performing Organization Address City/State/Zipcode Ph one Number INTERFACE SYSTEM INTERFACE SYSTEM Refer to clinic/hospital department * XR WRIST 3+ VW RIGHT (02/08/2013 3:27 PM CDT) Specimen Impressions Performed At IMPRESSION: No acute fracture or subluxation is ident ified involving INTERFACE SYSTEM the right wrist. Narrative Performed At Right wrist series INTERFACE SYSTEM INDICATION: Wrist pain following trauma AP and lateral and oblique views demons trate moderate degenerative change involving the right wrist withou t acute appearing fracture or subluxation identified. There appears b e an old fifth metacarpal fracture noted. Procedure Note Interface, [facility] [place] [facility] Incoming Radiology Results - 02/08/2013 3:38 PM CDT Right wrist series INDICATION: Wrist pain following trauma AP and lateral and oblique views demonstrate moderate degenerative change involving the right wrist without acute appearing fracture or subluxation identified. There appears be an old fifth metacarpal fracture noted. IMPRESSION IMPRESSION: No acute fracture or subluxation is identified involving the right wrist. Performing Organization Address City/State/Zipcode one Number INTERFACE SYSTEM INTERFACE SYSTEM Refer to clinic/hospital department documented in this encounter Visit Diagnoses Diagnosis Fall - Primary Unspecified fall Wrist pain, acute Pain in joint, forearm Head injury Head injury, unspecified documented in this encounter
--- OUTSIDE RECORDS SUMMARY | 2020-03-24 14:23 | XMS REPORT | Encounter Summary ---
Author Author [facility] Address Unknown Phone Unavailable Care Team Providers Care Hand Buffing Wheel Former Name Role Phone Shahram Mccallum MD PCP Unavailable Encounter Details Care Team Description Date Type Department Karen Booker RN SN - HOME VISIT 02/14/2013 [facility] [address] [place] [address] Social History Date Tobacco Use [...] Reading Time Taken Comments Vital Sign 128/70 02/14/2013 12:00 PM CDT Blood Pressure 100 02/14/2013 12:00 PM CDT Pulse - - Temperature 18 02/14/2013 12:00 PM CDT Respiratory Rate - - [...] Actions and Narratives Patient verbalizes that he is depressed because he can't seem to get his pain under control. He is awaiting appt with urologist to get his kidney stones taken care of. He is hoping this will help with his pain. documented in this encounter
--- OUTSIDE RECORDS SUMMARY | 2020-03-24 14:23 | XMS REPORT | Encounter Summary ---
Author Author [facility] Organization [facility] Address Unknown Phone Unavailable Care Team Providers Care Network Planner Name Role Phone Shahram Mccallum MD PCP Unavailable Encounter Details Care Team Description Date Type Department Blayne Alberts, DO [address] [facility][1] [address] [place] [phone] Marika Swann, Occupational Therapist Marika Madsen, Occupational Therapist 02/20/2013 [facility] ort Encounter [facility] [address] [place] [address] Social History Date Tobacco Use [...] needed for Shortness of Breath or Wheezing. 02/07/2013 03/14/2013 oxyCODONE-acetaminophen Take 1-2 Tabs 100 [...] mg Oral CpDR mouth daily before breakfast. 12/05/2012 02/28/2013 zolpidem (AMBIEN) 10 mg Take 1 Tab by 30 Tab 2 Oral tablet mouth nightly as needed for Insomnia. 11/24/2012 05/16/2013 ondansetron (ZOFRAN ODT) Place 1 [...] Tab 11 mg Oral Tab mouth daily. 02/23/2012 02/28/2013 loratadine (CLARITIN) 10 Take 1 Tab by [...]
--- OUTSIDE RECORDS SUMMARY | 2020-03-24 14:23 | XMS REPORT | Encounter Summary ---
Author Author [facility] Organization [facility] Address Unknown Phone Unavailable Care Team Providers Care Sales Activity Manager Name Role Phone Shahram Mccallum MD PCP Unavailable Encounter Details Care Team Description Date Type Department Blayne Alberts, DO [address] [facility] [employer] [address] [place] [phone] Marika Swann, Occupational Therapist Marika Madsen, Occupational Therapist 03/08/2013 [facility] ort Encounter [facility] [address] [place] [address] Social History Date Tobacco Use [...] Treatment - Marika Swann, Occupational Therapist - 03/08/2013 2:46 PM CDT [facility] Services [address] [place] [address] , Patient Information Today's Date: 03/08/2013 Oliverio Dalton Diagnosis: L carpal tunnel release Guyon's canal release trigger finger on 3,4,5 Referring Physician: Dr Blayne Alberts Progress Note Subjective: Pt was in a positive mood upon returning to therapy today. Objective: Pt's measurements at the end of tx were as follows Measurements today Left Hand General Laborer Strength 28 lbs. Wr Ext 35 Wr Flx 70 2nd PIP Flx 85 3rd PIP Flx 80 4th PIP Flx 80 5th PIP Flx 80 Assessment: Pt is improving however all goals have not been met yet. Pt. Still e xperiences inconsistent amounts of pain and swelling from 1 visit to the next. P t. Reports that scar massage is effective at reducing his pain and swelling in h is hand. Goals Met: 3/ STG met. / LTGs met Patient Goal Met NO Patient Goal: regain function of L hand and decreased pain Short Term Goals: Time Frame 2 weeks Patient able to tolerate coding quality analyst/pinch measurements with healed incisions Pain 1/10 at rest and 5/10 with activity Patient report completion of finger ROM Spiral Machine Operator Goals: Time Frame: 4 weeks Pain 0/10 at rest Pain 1/10 with ADLs Manage buttons/fasteners x 5 with no pain Wrist flexion AROM to 70 Wrist extension AROM to 50 Functional supination to near 90 degrees All fingers flex to palm Ongoing Screening of Patient: The patient has not been hospitalized recently The patient has not had any changes to medications The patient has not experienced any changes in allergies Plan: Cont POC towards unmet goals Marika Swann, OT 2:5 6 PM CDT documented in this encounter Plan of Treatment Not on filedocumented as of this encounter Visit Diagnoses Not on filedocumented in this encounter
--- OUTSIDE RECORDS SUMMARY | 2020-03-24 14:23 | XMS REPORT | Encounter Summary ---
Author Author [facility] Organization [facility] Address Unknown Phone Unavailable Care Team Providers Care Concrete Block Mason Name Role Phone Shahram Mccallum MD PCP Unavailable Encounter Details Care Team Description Date Type Department Karen Booker RN SN - HOME VISIT [facility]07[facility] [address] [place] [address] Social History Date Tobacco Use [...] Signs Reading Time Taken Comments Vital Sign 128/74 03/07/2013 12:00 PM CDT Blood Pressure - - Pulse 36.1 C (97 F) 03/07/2013 12:00 PM CDT Temperature 18 03/07/2013 12:00 PM CDT Respiratory Rate - - [...] 12/05/2012 Plan of Care of Disciplines: patient/ca Halfway regiver that do not follow the plan of care. Active - 2 problem interventions scheduled/documented in this visit Home Safety Home 12/05/2012 Disciplines: safety Halfway Active - 1 problem intervention scheduled/documented in this visit Medications Management 12/05/2012 Disciplines: of home Halfway medication s Active - 1 problem intervention scheduled/documented in this visit Pulse Oximetry Skilled 12/05/2012 Disciplines: assessment Halfway and monitoring of O2 saturation s. Active - 1 problem intervention scheduled/documented in this visit Skilled Observation and Skilled 12/05/2012 Assessment nursing Disciplines: observatio Halfway n and [...] Visit - Actions and Narratives Patient is happy and talkative today. documented in this encounter
--- OUTSIDE RECORDS SUMMARY | 2020-03-24 14:23 | XMS REPORT | Encounter Summary ---
Author Author [facility] Organization [facility] Address Unknown Phone Unavailable Care Team Providers Care Manager Intermediate Name Role Phone Shahram Mccallum MD PCP Unavailable Encounter Details Care Team Description Date Type Department Shahram Mccallum MD NO ADDRESS ON FILE 03/01/2013 Abstract [facility] Primar y Care [place] [address] [place] [phone] Social History Date Tobacco Use Types Packs/Day [...]
--- OUTSIDE RECORDS SUMMARY | 2020-03-24 14:23 | XMS REPORT | Encounter Summary ---
Author Author [facility] Organization [facility] Address Unknown Phone Unavailable Care Team Providers Care Hotel Office Manager Name Role Phone Shahram Mccallum MD PCP Unavailable Encounter Details Care Team Description Date Type Department Blayne Alberts, DO [address] [facility] [employer] [address] [place] [phone] Marika Swann, Occupational Therapist Marika Madsen, Occupational Therapist 02/13/2013 [facility] ort Encounter [facility] [address] [place] [address] Social History Date Tobacco Use [...] Miscellaneous Notes * Therapy Treatment - Marika Clark, Occupational Therapist - 02/13/2013 10:32 AM CDT [facility] Services [address] [place], [place] [phone] , Patient Information Today's Date: 02/13/2013 Oliverio Dalton Diagnosis: L carpal tunnel release Guyon's canal release trigger finger on 3,4,5 Referring Physician: Dr Blayne Alberts Progress Note Subjective: Pt arrived at therapy today and reported extreme tenderness and pain with wrist and finger movement this morning reported 10/10 pain with activity. Objective: Pt. Completed 15 min of paraffin tx with Left hand and wrist. Pt participated in 45 min of PROM to L wrist Flex/Ext., Pronation/Supinat ion, combined and individual finger Flex/Ext. Measurements today Left Hand Cs Associate Strength 15 lbs. Wr Ext 45 Wr Flx 70 2nd PIP Flx 85 3rd PIP Flx 70 4th PIP Flx 80 5th PIP Flx 80 Thumb Ext WFL Assessment: Pt is improving however all goals have not been met yet. Pt. Still e xperiences inconsistent amounts of pain and swelling from 1 visit to the next. P t. Reports that scar massage is effective at reducing his pain and swelling in h is hand. Goals Met: 11/10 STG met. 11/12 LTGs met Patient Goal Met NO Patient Goal: regain function of L hand and decreased pain Short Term Goals: Time Frame 2 weeks Patient able to tolerate muck farmer/pinch measurements with healed incisions Pain 1/10 at rest and 5/10 with activity Patient report completion of finger ROM Jail Goals: Time Frame: 4 weeks Pain 0/10 [...] Plan: Cont POC towards unmet goals Marika Clark, JARON 10 :59 AM CDT documented in this encounter Plan of Treatment Not on filedocumented as of this encounter Visit Diagnoses Not on filedocumented in this encounter
--- OUTSIDE RECORDS SUMMARY | 2020-03-24 14:23 | XMS REPORT | Encounter Summary ---
Author Author [facility] Organization [facility] Address Unknown Phone Unavailable Care Team Providers Care It Infrastructure Manager Name Role Phone Shahram Mccallum MD PCP Unavailable Encounter Details Care Team Description Date Type Department Blayne Alberts, DO [address] [facility] [employer] [address] [place] [phone] Marika Swann, Occupational Therapist Marika Madsen, Occupational Therapist 02/22/2013 [facility] ort Encounter [facility] [address] [place] [address] Social History Date Tobacco Use [...] as of this encounter Progress Notes * Marika Clark, Occupational Therapist - 02/22/2013 10:12 AM CDT Oliverio Dalton was scheduled for an appointment called and cancelled on 013. Mraika Clark OT 10 :12 AM CDT documented in this encounter Plan of Treatment Not on filedocumented as of this encounter Visit Diagnoses Not on filedocumented in this encounter
--- OUTSIDE RECORDS SUMMARY | 2020-03-24 14:23 | XMS REPORT | Encounter Summary ---
Author Author [facility] Organization [facility] Address Unknown Phone Unavailable Care Team Providers Care Psychiatric Specialist Name Role Phone Shahram Mccallum MD PCP Unavailable Encounter Details Care Team Description Date Type Department Blayne Alberts, DO [address] [facility] [employer] [address] [place] [phone] Marika Swann, Occupational Therapist Marika Madsen, Occupational Therapist 02/15/2013 [facility] ort Encounter [facility] [address] [place] [address] Social History Date Tobacco Use [...]
--- OUTSIDE RECORDS SUMMARY | 2020-03-24 14:23 | XMS REPORT | Encounter Summary ---
Author Author [facility] Organization [facility] Address Unknown Phone Unavailable Care Team Providers Care Sole Painter Name Role Phone Shahram Mccallum MD PCP Unavailable Reason for Referral * Outpatient Services (Routine) Referred By Contact Referred To Contact Status Reason Specialty Diagnoses / Procedures SelfAries MD [address] [place] [phone] Closed Diagnoses Head injury P rocedures CT HEAD WO CONTRAST Reason for Visit * Outpatient Services (Routine) Referred By Contact Referred To Contact Status Reason Specialty Diagnoses / Procedures Aries Fraser MD [address] [place] [phone] Closed Diagnoses Head injury P rocedures CT HEAD WO CONTRAST Encounter Details Care Team Description Date Type Department Aries Fraser MD [address] [place] [phone] 02/08/2013 [facility] F ort Encounter [facility] CT Scan [address] [place] [phone] Social History Date Tobacco Use Types [...] every 6 hours as needed for pain 02/06/2013 02/13/2013 ciprofloxacin (CIPRO) 500 Take 1 Tab by 14 Tab 0 mg Oral tablet mouth 2 times daily for 7 days. 11/27/2016 naproxen sodium 220 mg Take 440 [...] Procedure Name Priority Date/Time Associated Diag nosis CT HEAD WO CONTRAST Routine 02/08/2013 Head injur y 3:34 PM CDT documented in this encounter Results * CT HEAD WO [...] air cells appear clear. Procedure Note Interface, [facility] Incoming Radiology Results - 02/08/2013 3:46 [...] documented in this encounter Visit Diagnoses Diagnosis Head injury Head injury, unspecified documented in this encounter
--- OUTSIDE RECORDS SUMMARY | 2020-03-24 14:23 | XMS REPORT | Encounter Summary ---
Author Author [facility] Organization [facility] Address Unknown Phone Unavailable Care Team Providers Care Society Reporter Name Role Phone Shahram Mccallum MD PCP Unavailable Reason for Visit * Reason Comments Medication Refill Encounter Details Care Team Description Date Type Department Shahram Mccallum MD NO ADDRESS ON FILE 02/28/2013 Refill [facility] Primar y Care [address] [phone] Social History Date Tobacco Use Types Packs/Day [...]
--- OUTSIDE RECORDS SUMMARY | 2020-03-24 14:23 | XMS REPORT | Encounter Summary ---
Author Author [facility] Organization [facility] Address Unknown Phone Unavailable Care Team Providers Care Rover Tender Name Role Phone Shahram Mccallum MD PCP Unavailable Encounter Details Care Team Description Date Type Department Karen Booker RN SN - HOME VISIT 02/21[facility]2013 [facility] [address] [place] [address] Social History Date Tobacco Use [...] Reading Time Taken Comments Vital Sign 132/80 02/21/2013 12:00 PM CDT Blood Pressure - - Pulse 36.1 C (97 F) 02/21/2013 12:00 PM CDT Temperature 20 02/21/2013 12:00 PM CDT Respiratory Rate - - [...] Visit - Actions and Narratives Patient is very depressed today and cry ing. States that everything is going wrong. Voices that he wishes he could light a stick of dynami te under him and just . He also states taht he wishes he could take some valium and just not wak e up. States that he is not sleeping at night hardly at all. I did call Dr. Mccallum to report above and he wants me to see if his psychologist will see him emergently today for evaluation. Called Dr. Fajardo office and they will see him this afternoon. Patient made a contract with me that he will not do anything and will see the psychologist this afternoon. documented in this encounter
--- OUTSIDE RECORDS SUMMARY | 2020-03-24 14:23 | XMS REPORT | Encounter Summary ---
Author Author [facility] Organization [facility] Address Unknown Phone Unavailable Care Team Providers Care Admissions Specialist Name Role Phone Shahram Mccallum MD PCP Unavailable Reason for Visit * Reason Comments Medication Question could I start my Advil back , i haven't had any bleeding for several days. Encounter Details Care Team Description Date Type Department Rosalinda Bal Medication Question (could I start my Ad patti back, i haven't had any bleeding for several days.) 02/14/2013 Telephone [facility] Primar y Care [address] [phone] Social History Date Tobacco Use Types Packs/Day [...] * Telephone Encounter - Rosalinda Bal - 02/14/2013 2:[address] Mccallum may resume Advil. documented in this encounter Plan of Treatment Not on filedocumented as of this encounter Visit Diagnoses Not on filedocumented in this encounter
--- OUTSIDE RECORDS SUMMARY | 2020-03-24 14:23 | XMS REPORT | Encounter Summary ---
Author Author [facility] Organization [facility] Address Unknown Phone Unavailable Care Team Providers Care Financial Analyst Accountant Name Role Phone Shahram Mccallum MD PCP Unavailable Encounter Details Care Team Description Date Type Department Self, Aries Montelongo MD [address] [place] [phone] [facility] [place] [address] [place] [address] Social History Date Tobacco Use [...] Associated Diag nosis XR WRIST 3+ VW RIGHT Routine 02/08/2013 Wrist darinel n, acute 3:27 PM CDT documented in this encounter Results * XR WRIST 3+ VW RIGHT (02/08/2013 [...] fifth metacarpal fracture noted. Procedure Note Interface, [facility] Incoming Radiology Results - 02/08/2013 3:38 PM CDT Right wrist series INDICATION: Wrist pain following trauma AP and lateral and oblique views demonstrate moderate degenerative change involving the right wrist without acute appearing fracture or subluxation identified. There appears be an old fifth metacarpal fracture noted. IMPRESSION IMPRESSION: No acute fracture or subluxation is identified involving the right wrist. Performing Organization Address [facility]/State[facility] one Number INTERFACE SYSTEM INTERFACE SYSTEM Refer to clinic/hospital department documented in this encounter Visit Diagnoses Diagnosis Wrist pain, acute Pain in joint, forearm documented in this encounter
--- OUTSIDE RECORDS SUMMARY | 2020-03-24 14:23 | XMS REPORT | Encounter Summary ---
Author Author [facility] Organization [facility] Address Unknown Phone Unavailable Care Team Providers Care Oncology Technician Name Role Phone Shahram Mccallum MD PCP Unavailable Encounter Details Care Team Description Date Type Department Karen Booker RN SN - HOME VISIT 02/28/2013 [facility] [address] [place] [address] Social History Date Tobacco Use [...] Reading Time Taken Comments Vital Sign 124/70 02/28/2013 12:00 PM CDT Blood Pressure - - Pulse 36.1 C (97 F) 02/28/2013 12:00 PM CDT Temperature 18 02/28/2013 12:00 PM CDT Respiratory Rate - - [...] visit Home Safety Home 12/05/2012 Disciplines: safety [facility]itentiary Active - 1 problem intervention scheduled/documented in this visit Medications Management 12/05/2012 Disciplines: of home Penitentiary medication s Active - 1 problem intervention scheduled/documented in this visit Pulse Oximetry Skilled 12/05/2012 Disciplines: assessment Penitentiary and monitoring of O2 saturation s. Active - 1 problem intervention scheduled/documented in this visit Skilled Observation and Skilled 12/05/2012 Assessment nursing Disciplines: observatio Penitentiary n and [...] Visit - Actions and Narratives Patient is much happier this week. He d id see his psychologist last week which determined that his pain level was a lot of his problem wit h depression. He is also getting help with getting his yard cleaned up which really helps his mood a lot. Physician not called about pain level o f 5 as patient has not taken pain med since this AM and he can have it every 4 to 6 hours as zohreh siddiqui Encourage patient to take pain med before pain level gets above a 4. documented in this encounter
--- OUTSIDE RECORDS SUMMARY | 2020-03-24 14:24 | XMS REPORT | Encounter Summary ---
Author Author [facility] Organization [facility] Address Unknown Phone Unavailable Care Team Providers Care [employer] Name Role Phone Shahram Mccallum MD PCP Unavailable Encounter Details Care Team Description Date Type Department Blayne Alberts, DO [address] [facility] [address] [place] [phone] Dora Mcduffie, Pipe Liner 02/08/2013 [facility] F ort Encounter [facility] [address] [place] [address] Social History Date Tobacco Use [...]
--- OUTSIDE RECORDS SUMMARY | 2020-03-24 14:24 | XMS REPORT | Encounter Summary ---
Author Author [facility] Organization [facility] Address Unknown Phone Unavailable Care Team Providers Care Metal Dealer Name Role Phone Shahram Mccallum MD PCP Unavailable Encounter Details Care Team Description Date Type Department Karen Booker RN SN - OASIS RECERTIFICATION 01/31/2013 [facility] [address] [place] [address] Social History Date Tobacco Use [...] Reading Time Taken Comments Vital Sign 124/70 01/31/2013 1:00 PM CDT Blood Pressure - - Pulse 36.7 C (98 F) 01/31/2013 1:00 PM CDT Temperature 20 01/31/2013 1:00 PM CDT Respiratory Rate - - Oxygen Saturation - - Inhaled Oxygen Concentration - - Weight - - Height - - Body Mass Index documented in this encounter Plan of Treatment Not on filedocumented as of this encounter Visit Diagnoses Not on filedocumented in this encounter Home Health Visit - Care Plan Visit Type - SN - OASIS RECERT Discipline - Shelter Status Goals Interventions Problem Descriptio Start Date n Active - 2 problem interventions scheduled/documented in this visit Home Safety Home 12/05/2012 Disciplines: safety Shelter Active - 1 problem intervention scheduled/documented in this visit Medications Management 12/05/2012 Disciplines: of home Shelter medication s Active - 1 problem intervention scheduled/documented in this visit Pulse Oximetry Skilled 12/05/2012 Disciplines: assessment Shelter and monitoring of O2 saturation s. Active - 1 problem intervention scheduled/documented in this visit Skilled Observation and Skilled 12/05/2012 Assessment nursing Disciplines: observatio Shelter n and assessment . Variance Visit Notes [...] familiar with the test. Seconds to Complete: 24 Walking aid used? No Older adults (age 65+) who took 13.5 se conds or longer to perform the TUG were classified as fallers, with an overall correct predic tion rate of 90%. Physician not called about pain level a nieves 5 because is aware and has changed meds. Instructed on constipation care and con stipation [...]
--- OUTSIDE RECORDS SUMMARY | 2020-03-24 14:24 | XMS REPORT | Encounter Summary ---
Author Author [facility] Organization [facility] Address Unknown Phone Unavailable Care Team Providers Care Chainstitch Seat Joiner Name Role Phone Shahram Mccallum MD PCP Unavailable Encounter Details Care Team Description Date Type Department Shahram Mccallum MD NO ADDRESS ON FILE 02/03/2013 [facility] Primar y Care [place] [address] [place] [phone] Social History Date Tobacco Use Types Packs/Day [...]
--- OUTSIDE RECORDS SUMMARY | 2020-03-24 14:24 | XMS REPORT | Encounter Summary ---
Author Author [facility] Organization [facility] Address Unknown Phone Unavailable Care Team Providers Care Senior Software Tester Name Role Phone Shahram Mccallum MD PCP Unavailable Reason for Visit * Reason Comments Blood in Urine Encounter Details Care Team Description Date Type Department Zeke Abarca MD [address] [place] [address] Hematuria, unspecified (Primary Dx); Left flank pain; Kidney stones 02/06/2013 Emergency [facility] Emergency Department [address] [id number] Social History Date Tobacco Use Types Packs/Day [...] Signs Reading Time Taken Comments Vital Sign 117/70 02/06/2013 7:21 PM CDT Blood Pressure 82 02/06/2013 7:21 PM CDT Pulse 36.8 C (98.3 F) 02/06/2013 7:21 PM CDT Temperature 14 02/06/2013 7:21 PM CDT Respiratory Rate 100% 02/06/2013 7:21 PM CDT Oxygen Saturation - - Inhaled Oxygen Concentration 88.5 kg (195 lb) 02/06/2013 7:21 PM CDT Weight 167.6 cm (5' 6") 02/06/2013 7:21 PM CDT Height 31.47 02/06/2013 7:21 PM CDT Body Mass Index documented in this encounter Discharge Instructions * Patient Instructions* Willy Chaves - 02/07/2013 11:50 AM CDT Electronically signed by Sienna, Bong Aguilera Transcriptions Incoming at 3 11:50 AM CDT * Additional Instructions* Zeke Abarca MD - 02/06/2013 Continue to push fluid and drink more water. Follow up with primary doctor as well as urologist. If you have worsening symptoms or get to where you can not urinate at all then y ou will need to return to ER as you may need a catheter to clear out your bladde r of blood and clots. Take full course of antibiotic for urine infection THANK YOU FOR CHOOSING [facility]! Our goal [...] attachments cannot be sent through Care Everywhere.* BLOOD IN THE URINE: AFTER YOUR VISIT (MAORI) * FLANK PAIN: AFTER YOUR VISIT (MAORI) * KIDNEY STONE: AFTER YOUR VISIT (MAORI) documented in this encounter Medications at [...] needed for Shortness of Breath or Wheezing. 02/06/2013 02/13/2013 ciprofloxacin (CIPRO) 500 Take 1 Tab by 14 Tab 0 mg Oral tablet mouth 2 times daily for 7 days. 11/27/2016 naproxen sodium 220 mg Take 440 mg 0 Oral Cap by mouth daily . 01/10/2013 02/07/2013 oxyCODONE-acetaminophen Take 1 Tab by 50 Tab 0 (PERCOCET) 5-325 mg Oral mouth every 6 tablet hours as needed for Pain, Moderate. 0.5 tab every 6 hours as needed for pain 01/10/2013 04/11/2013 LORazepam (ATIVAN) 1 mg Take [...] ED Notes * Zeke Abarca MD - 02/06/2013 7:27 PM CDT HISTORY OF PRESENT ILLNESS Oliverio Dalton, a 62 y.o. male presents to the ED with a Chief Complaint of Bl ood in Urine HPI Comments: He has known kidney stones and one that is still in left kidney. H sarah has had intermittent pain since August when he had lithotripsy. Today he has had hematuria all day with clots. He has constant pain in left flank from the ki dney stone. He also takes plavix and aspirin. He has not been running a fever an d feels at baseline other than continued blood in urine without new pain. Patient is a 62 y.o. male presenting with hematuria. The history is provided by the patient and a caregiver. Blood in Urine This is a recurrent problem. The current episode started 12 to 24 hours ago. The problem occurs constantly. The problem has not changed since onset.Associated s ymptoms include abdominal pain (left flank pain). Pertinent negatives include no chest pain, no headaches and no shortness of breath. The symptoms are aggravated by nothing. The symptoms are relieved by nothing. He has tried nothing for the symptoms. REVIEW OF SYSTEMS Review of Systems Constitutional: Positive for fatigue (chronic). Negative for fever and chills. HENT: Negative for trouble swallowing, neck pain and neck stiffness. Respiratory: Negative for shortness of breath. Cardiovascular: Negative for chest pain. Gastrointestinal: Positive for vomiting (small amounts but this is chronic for h im) and abdominal pain (left flank pain). Genitourinary: Positive for hematuria and flank pain (left flank). Negative for dysuria, decreased urine volume, discharge and penile pain. Musculoskeletal: Negative for joint swelling. Neurological: Negative for dizziness, light-headedness and headaches. Psychiatric/Behavioral: The patient is not nervous/anxious. PAST MEDICAL HISTORY REVIEWED Past Medical History [...] Pr colonoscopy,diagnostic 02/01/2009 COLONOSCOPY performed by MARY ZHOU at [facility] OR Hx hernia repair 1988 And age 4 Hx lap cholecystectomy 05/17/07 Hx coronary artery bypass graft Hx heart catheterization 04/10 With angioplasty, 2 stents Pr lap,appendectomy 05/28/2012 APPENDECTOMY LAPAROSCOPIC performed by Mary Zhou MD at [facility] OR Pr repair umbilical colleen,4+y/o,reduc 05/28/2012 HERNIA UMBILICAL REPAIR performed by Mary Zhou MD at [facility] OR Family History Problem Relation Age of [...] Main Topics Smoking status: Former Smoker -- 4.0 packs/day for 40 years Types: Cigarettes Quit date: 03/08/1995 Smokeless tobacco: Never Used Alcohol Use: No Drug Use: No Sexually Active: Not Currently -- Female partner(s) Patient Active Problem List Diagnoses Date Noted [...] Home Medications Current Home Medications AEROBID IN Take 2 Puffs by inhalation 3 times daily. ALBUTEROL IN Take 2 Puffs by inhalation every 6 hours as needed ASPIRIN EC 81 MG ORAL TBEC Take 81 mg by mouth daily. BETHANECHOL (URECHOLINE) 25 MG ORAL TABLET Take 1 Tab by mouth 4 times daily . BETIMOL 0.5 % OP DROP Administer 1 Drop in both eyes 2 times daily. BLOOD SUGAR DIAGNOSTIC (ACCU-CHEK ACTIVE TEST) MISC STRP In the am & pm prn CLOPIDOGREL (PLAVIX) 75 MG ORAL TAB Take 1 Tab by mouth daily. ESOMEPRAZOLE (NEXIUM) 40 MG ORAL CPDR Take 1 Cap by mouth daily before break fast. EZETIMIBE (ZETIA) 10 MG ORAL TABLET Take 1 Tab by mouth daily at bedtime. FENOFIBRATE NANOCRYSTALLIZED (TRICOR) 145 MG ORAL TABLET Take 1 Tab by mouth daily with supper. FLUOXETINE (PROZAC) 20 MG ORAL TABLET Take by mouth daily. take 2 capsules daily IBUPROFEN (MOTRIN) 800 MG ORAL TABLET Take 1 Tab by mouth 3 times daily with meals. INSULIN GLARGINE (LANTUS) 100 UNIT/ML SUBCUT SOLN Inject 30 Units by subcuta neous injection daily. ISOSORBIDE MONONITRATE SR 24 HOUR (IMDUR) 60 MG ORAL TABLET Take 1 Tab by mo uth 2 times daily. LORATADINE (CLARITIN) 10 MG ORAL TABLET Take 1 Tab by mouth daily. LORAZEPAM (ATIVAN) 1 MG ORAL TABLET Take 1 Tab by mouth 2 times daily. MAGNESIUM OXIDE 250 MG ORAL TAB Take 1 Tab by mouth 3 times daily. MULTIVITAMIN PO Take 1 Tab by mouth daily with lunch. NAPROXEN SODIUM 220 MG ORAL CAP Take by mouth daily. 2 tablets daily NITROGLYCERIN (NITROSTAT) 0.[address] 1 Tab under tongue ev len 5 minutes as needed for Chest Pain. ONDANSETRON (ZOFRAN ODT) [address] 1 Tab under tongue every 8 karly rs as needed for Nausea/Emesis. ONDANSETRON (ZOFRAN) 4 MG ORAL TAB Take 1 Tab by mouth every 6 hours as need ed for Nausea/Emesis. OXYCODONE-ACETAMINOPHEN (PERCOCET) 5-325 MG ORAL TABLET Take 1 Tab by mouth every 6 hours as needed for Pain, Moderate. 0.5 tab every 6 hours as needed for pain PHENYTOIN SODIUM EXTENDED RELEASE (DILANTIN) 100 MG ORAL CAPSULE 200mg am 10 0mg pm PIOGLITAZONE (ACTOS) 30 MG ORAL TABLET Take 1 Tab by mouth daily. RAMIPRIL (ALTACE) 10 MG ORAL CAPSULE Take 1 Cap by mouth daily. SIMVASTATIN (ZOCOR) 40 MG ORAL TABLET Take 40 mg by mouth Daily LATE. TAMSULOSIN (FLOMAX) 0.4 MG ORAL CAPSULE Take 1 Cap by mouth daily. 30 min. A fter supper TYLENOL 325 MG ORAL TAB Take 1-2 Tabs by mouth every 4 hours as needed for P ain. ZOLPIDEM (AMBIEN) 10 MG ORAL TABLET Take 1 Tab by mouth nightly as needed fo r Insomnia. Medications Modified during this Encounter Medications Discontinued during this Encounter PHYSICAL EXAM Initial Vitals BP 02/06/131920 117/70 mmHg Pulse 02/06/131920 82 Resp 02/06/131 14 Temp 02/06/131920 98.3 F (36.8 C) Temp src 02/06/131920 Tympanic SpO2 02/06/131920 100 % Physical Exam Nursing note and vitals [...] Bowel sounds are normal. He exhibits no distension, no abdomina l bruit and no pulsatile midline mass. There is tenderness (left cva and flank p ain). There is CVA tenderness (left flank and cva tenderness). There is no rigid ity, no rebound, no guarding, no tenderness at McBurney's point and negative Mur phy's sign. Musculoskeletal: Normal range of motion. Neurological: He is alert and oriented to person, place, and time. Skin: Skin is warm and dry. He is not diaphoretic. DIAGNOSTICS LAB: Results for orders placed during the hospital encounter of 02/06/13 (from the [facility] 24 hour(s)) URINALYSIS WITH REFLEX CULTURE Component Value Range GLUCOSE UA Trace (*) Negative mg/dl BILIRUBIN UA Negative Negative KETONES UA Trace (*) Negative mg/dl SPECIFIC GRAVITY UA 1.020 1.002 - 1.030 PH UA 7.0 PROTEIN UA 100 (*) Negative mg/dl UROBILINOGEN UA 0.2 0.2 - 1.0 EU/dl NITRITE UA Positive (*) Negative BLOOD UA Large (*) Negative LEUKOCYTE ESTERASE UA Small (*) Negative WBC UA 2-5 0 - 5 /HPF RBC UA Packed Field (*) 0 - 2 /HPF BACTERIA UA Negative Negative /HPF MUCOUS, URINE Light COMMENT, URINE See Culture Report. CBC WITH DIFFERENTIAL Component Value Range WBC 6.97 3.0 - 10.4 x10E3 RBC 4.26 4.15 - 5.75 x10E6 HEMOGLOBIN 11.0 (*) 13.8 - 17.4 g/dL HEMATOCRIT 34.3 (*) 38.6 - 49.4 % MCV 80.5 79 - 100 fL MCH 25.9 (*) 28 - 34 pg MCHC 32.1 31 - 35 g/dL RDW 14.5 (*) 12.1 - 14.1 % PLATELETS 461 (*) 148 - 408 x10E3 MPV 6.6 (*) 7.4 - 10.6 fL NEUTROPHILS 66.3 43 - 73 % LYMPHOCYTES 23.9 19 - 47 % MONOCYTES 6.8 3 - 9 % EOSINOPHILS 2.9 0 - 6 % BASOPHILS 0.1 0 - 1.2 % NEUTROPHIL ABSOLUTE 4.62 1.3 - 7.6 x10E3 LYMPHOCYTE ABSOLUTE 1.66 0.6 - 4.9 x10E3 MONOCYTE ABSOLUTE 0.48 0.1 - 0.9 x10E3 EOSINOPHIL ABSOLUTE 0.20 0.0 - 0.2 x10E3 BASOPHILS ABSOLUTE 0.01 0 - 0.1 x10E3 COMPREHENSIVE METABOLIC PANEL Component Value Range GLUCOSE 274 (*) 70 - 100 mg/dl BUN 20.0 7 - 20 mg/dl CREATININE 0.72 0.67 - 1.17 mg/dl GFR 117 >60 ml/min SODIUM 134 134 - 145 mmol/L POTASSIUM 4.3 3.3 - 4.8 mmol/L CHLORIDE 101 98 - 107 mmol/L CO2 26.6 22 - 31 mmol/L ANION GAP 6 (*) 7 - 16 CALCIUM 8.9 8.5 - 10.1 mg/dl ALBUMIN 3.3 (*) 3.4 - 5.0 g/dl TOTAL PROTEIN 7.3 6.4 - 8.2 g/dl BILIRUBIN TOTAL 0.2 <1.1 mg/dl ALKALINE PHOSPHATASE 105 50 - 136 IU/L AST 13 10 - 40 IU/L ALT 28 25 - 70 IU/L PROTIME-INR Component Value Range PROTIME 12.6 (*) 10.1 - 11.3 Sec INR 1.19 (*) 2.0 - 3.0 PTT Component Value Range PTT 32 (*) 23 - 30 Sec RADIOLOGY: CT ABDOMEN PELVIS WO CONTRAST (Results Pending) CT ABDOMEN PELVIS WO CONTRAST (In process) Result time:02/06/132055 In process by Sienna, Bong Aok Incoming Radiology Results (02/06/13 20:56:31) Narrative: THIS IS A PRELIMINARY REPORT FROM [facility] CT ABDOMEN AND PELVIS WITHOUT CONTRAST CLINICAL HISTORY:Hematuria, flank pain TECHNIQUE: Noncontrast axial CT images were acquired through the abdomen and pelvis. COMPARISON: None FINDINGS: Evaluation of the solid organs and viscera is somewhat limited in this noncontrast CT. There has been cholecystectomy and appendectomy. There is mild left hydronephrosis. There are several left renal calyceal calculi, up to 7 x 5 mm. No hydroureter is evident. There is relative density of the left renal pelvis. There is no free air or free fluid in the abdomen or pelvis. There is hepatomegaly. No focal hepatic lesions are evident. There is no intrahepatic ductal dilatation. The common bile duct appear unremarkable. There is no abdominal aortic aneurysm. The pancreas appears unremarkable. There is splenomegaly. The adrenal glands appear unremarkable. The stomach appears unremarkable. There are a few sigmoid diverticula. The small bowel and colon appear otherwise unremarkable. There is no evidence of abdominal or pelvic lymphadenopathy. The bladder appears full. There are small fat containing inguinal hernias. No osseous abnormality is visualized. The lung bases appear unremarkable. IMPRESSION: Mild left hydronephrosis. Several left calyceal calculi. No ureterolithiasis Relative density in the left renal pelvis, of uncertain significance. Pyelonephritis cannot be excluded. Correlation to clinical and laboratory parameters is suggested. Other findings as above DICTATED BY: Daria Chappell on Wednesday02/06/2013 08:56PM CDT EKG: PROCEDURES Procedures REEVALUATION MEDICAL DECISION MAKING AND PLAN OF CARE . New Prescriptions for this Encounter CIPROFLOXACIN (CIPRO) 500 MG ORAL TABLET Take 1 Tab by mouth 2 times daily f or 7 days. Last vitals BP 117/70 | Pulse 82 | Temp(Src) 98.3 F (36.8 C) (Tympanic) | R barbara 14 | Ht 5' 6" (1.676 m) | Wt 88.451 kg | BMI 31.47 kg/m2 | SpO2 100% MDM Coding Reviewed: vitals, nursing note and previous chart Reviewed previous: labs and CT scan Interpretation: labs, CT scan and SP02 Will give IVF to dilute urine and check labs and CT to see if there is anything acute to cause problems. Labs look at baseline. His urine shows blood with nit/LE and blood. Will start a ntibiotic with cipro in ED and waiting on CT scan 2009 on recheck pt continues to feel well. CT done and waiting on report. Give C ipro for findings on UA. 2104 CT does not show anything acute. Continued stones in left kidney. With norm al CBC and BUN/Cr will discharge to home with antibiotic as long as he is able t o urinate. If he is unable to urinate will need to place catheter and do CBI ove rnight. Counseled on return precautions and sent Cipro prescription electronically to [facility] He was able to urinate and there was less blood and clots and more urine. W ill discharge to home as above. Medications Administered During the ED Stay from 02/06/2013 1906 to 02/06/2013 2 136 Date/Time Order Dose Route Action 02/06/20132133 sodium chloride 0.9% bolus solution 1,000 mL 0 mL IV Stopped 02/06/2013 193 sodium chloride 0.9% bolus solution 1,000 mL 1,000 mL IV New Ba g 02/06/20132012 ciprofloxacin (CIPRO) tablet 500 mg 500 mg Oral Given CLINICAL IMPRESSION Final diagnoses: Hematuria, unspecified Left flank pain Kidney stones CASE DISCUSSED DISPOSITION, EDUCATION AND MEDICATION RECONCILIATION Medications reconciled. See after visit summary for patient education on discha rged patients. * Nayely Duff RN - 02/06/2013 7:22 PM CDT Pt states started urinating blood this am, 3 episodes since, light red urine not ed. Pt states clots are present in urine. Pt with hx of kidney stones but no p ain this time. documented in this encounter Plan of Treatment Not on filedocumented as of this encounter Procedures Comments Procedure Name Priority Date/Time Associated Diag nosis CT ABDOMEN PELVIS WO Stat 02/06/2013 CONTRAST 8:17 PM CDT CBC WITH DIFFERENTIAL Stat 02/06/2013 7:26 PM CDT PTT Stat 02/06/2013 7:26 PM CDT PROTIME-INR Stat 02/06/2013 7:26 PM CDT COMPREHENSIVE METABOLIC Stat 02/06/2013 PANEL 7:26 PM CDT URINALYSIS WITH REFLEX Stat 02/06/2013 CULTURE 7:15 PM CDT URINE CULTURE Stat 02/06/2013 7:15 PM CDT documented in this encounter Results * CT ABDOMEN PELVIS WO CONTRAST (02/06/2013 8:17 PM CDT) Specimen Impressions Performed At IMPRESSION: Multiple left mid and lower pole renal ca lculi or Staghorn INTERFACE SYSTEM type calculus with increase since 2011. No evidence of hydronephrosis. Mild hepatosplenomegaly. Narrative Performed At CT abdomen and pelvis without contrast INTERFACE SYS TEM INDICATION: Hematuria and left flank pa in Comparison is made with 10/11/2012 FINDINGS: Images through the lung bases show no e ffusions or infiltrates. There are mild emphysematous changes noted. The liver and spleen appear mild enlarg ement the liver measuring 22 cm in length and the spleen measuring 15.4 cm in length. No masses are seen the liver or spleen. Gallbladder h as been removed. There are prominent splenic vessels noted near th e hilum. Adrenal glands and pancreas are unremar kable. There are multiple calculi or Staghorn type calculus present on the left extending into the lower pole re gion of the left kidney. These measures 3 cm in length by 9 mm in thic kness. These have increased in size and number since 10/11/2012. There is mild increased density in the left renal pelvis which may reflect hematuria. No right-sided renal calculi are seen. No hydronephros is or hydroureter identified. The aorta is normal in caliber. No mese nteric or retroperitoneal adenopathy. Unopacified bowel structures are grossl y negative. Imaging through the pelvis demonstrate postoperative change involve the cecum likely secondary to previous appendectomy. Urinary bladder is mild dilated. Prostate gland and anthony inal vesicles are grossly unremarkable. No pelvic mass or adenopa thy. Procedure Note Interface, Bong Aok Incoming Radiology Results - 02/07/2013 10:[address] abdomen and pelvis without contrast INDICATION: Hematuria and left flank pain Comparison is made with 10/11/2012 FINDINGS: Images through the lung bases show no effusions or infiltrates. There are mild emphysematous changes noted. The liver and spleen appear mild enlargement the liver measuring 22 cm in length and the spleen measuring 15.4 cm in length. No masses are seen the liver or spleen. Gallbladder has been removed. There are prominent splenic vessels noted near the hilum. Adrenal glands and pancreas are unremarkable. There are multiple calculi or Staghorn type calculus present on the left extending into the lower pole region of the left kidney. These measures 3 cm in length by 9 mm in thickness. These have increased in size and number since 10/11/2012. There is mild increased density in the left renal pelvis which may reflect hematuria. No right-sided renal calculi are seen. No hydronephrosis or hydroureter identified. The aorta is normal in caliber. No mesenteric or retroperitoneal adenopathy. Unopacified bowel structures are grossly negative. Imaging through the pelvis demonstrate postoperative change involve the cecum likely secondary to previous appendectomy. Urinary bladder is mild dilated. Prostate gland and seminal vesicles are grossly unremarkable. No pelvic mass or adenopathy. IMPRESSION IMPRESSION: Multiple left mid and lower pole renal calculi or Staghorn type calculus with increase since 10/11/2012. No evidence of hydronephrosis. Mild hepatosplenomegaly. Performing Organization Address [facility] Number INTERFACE SYSTEM INTERFACE SYSTEM Refer to clinic/hospital department * PTT (02/06/2013 7:26 PM CDT) PTT 32 (H)Comment: 23 - 30 Sec [place], [place] LABORATORY ACCT#[id number], ,,,, SERVICES - [place] Specimen Blood specimen (specimen) Performing Organization Address [facility] LABORATORY SERVICES CLIA# [id number] [place], [place] [address] [address] LABORATORY SERVICES CLIA# [id number] [place] [address] * PROTIME-INR (02/06/2013 7:26 PM CDT) PROTIME 12.6 (H) 10.1 - 11.3 Sec [facility] SERVICES - [place] INR 1.19 (L)Comment: 2.0 - 3.0 [place] LABORATORY ACCT#[id number], ,,,, SERVICES - [place] Specimen Blood specimen (specimen) Performing Organization Address [facility] LABORATORY SERVICES CLIA# [id number] [place], [place] [address] [address] LABORATORY SERVICES CLIA# [id number] [place] [address] - [address] * COMPREHENSIVE METABOLIC PANEL (02/06/2013 7:26 PM CDT) GLUCOSE 274 (H) 70 - 100 mg/dl [facility] LABORATORY SERVICES - [facility] BUN 20.0 7 - 20 mg/dl [facility] LABORATORY SERVICES - [place] CREATININE 0.72 0.67 - 1.17 mg/dl [facility] LABORATORY SERVICES - [place] GFR 117 >60 ml/min [facility] LABORATORY SERVICES - [place] SODIUM 134 134 - 145 mmol/L [facility] LABORATORY SERVICES - [place] POTASSIUM 4.3 3.3 - 4.8 mmol/L [facility] LABORATORY SERVICES - [place] CHLORIDE 101 98 - 107 mmol/L [facility] LABORATORY SERVICES - [place] CO2 26.6 22 - 31 mmol/L [facility] LABORATORY SERVICES - [place] ANION GAP 6 (L) 7 - 16 [facility] LAB[facility]ATORY SERVICES - [place] CALCIUM 8.9 8.5 - 10.1 mg/dl [facility] LABORATORY SERVICES - [place] ALBUMIN 3.3 (L) 3.4 - 5.0 g/dl [facility] LABORATORY SERVICES - [place] TOTAL PROTEIN 7.3 6.4 - 8.2 g/dl [facility] LABORATORY SERVICES - [place] BILIRUBIN TOTAL 0.2 <1.1 mg/dl [facility] LABORATORY SERVICES - [place] ALKALINE 105 50 - 136 IU/L [facility] PHOSPHATASE LABORATORY SERVICES - [place] AST 13 10 - 40 IU/L [facility] LABORATORY SERVICES - [place] ALT 28Comment: [place], [place] 25 - 70 IU/L [facility] ACCT#[id number], ,,,, LABORATORY SERVICES - [place] Specimen Blood specimen (specimen) Performing Organization Address City/State/[facility] Ph one Number [facility] LABORATORY SERVICES CLIA# [id number] [place] [address] [address] LABORATORY SERVICES CLIA# [id number] [place] [address] - [address] * CBC WITH DIFFERENTIAL (02/06/2013 7:26 PM CDT) WBC 6.97 3.0 - 10.4 x10E3 [facility] LABORATORY SERVICES - [place] RBC 4.26 4.15 - 5.75 x10E6 [facility] LAB[facility]ATORY SERVICES - [place] HEMOGLOBIN 11.0 (L) 13.8 - 17.4 g/dL [facility] LABORATORY SERVICES - [place] HEMATOCRIT 34.3 (L) 38.6 - 49.4 % [facility] LAB[facility]ATORY SERVICES - [place] MCV 80.5 79 - 100 fL [facility]ATORY SERVICES - [place] MCH 25.9 (L) 28 - 34 pg [facility] LAB[facility]ATORY SERVICES - [place] MCHC 32.1 31 - 35 g/dL [facility] LABORATORY SERVICES - [facility] [place] RDW 14.5 (H) 12.1 - 14.1 % [facility] LABORATORY SERVICES - [facility] [place] PLATELETS 461 (H) 148 - 408 x10E3 [facility] LABORATORY SERVICES - [facility] [place] MPV 6.6 (L) 7.4 - 10.6 fL [facility]ATORY SERVICES - [place] NEUTROPHILS 66.3 43 - 73 % [facility] LABORATORY SERVICES - [facility] [place] LYMPHOCYTES 23.9 19 - 47 % [facility]ATORY SERVICES - [place] MONOCYTES 6.8 3 - 9 % [facility]AT[facility] SERVICES - [facility] [place] EOSINOPHILS 2.9 0 - 6 % [facility] - [place] BASOPHILS 0.1 0 - 1.2 % [facility] - [place] NEUTROPHIL 4.62 1.3 - 7.6 x10E3 [facility] LABORATORY SERVICES - [facility] [place] LYMPHOCYTE 1.66 0.6 - 4.9 x10E3 [facility] - [place] MONOCYTE 0.48 0.1 - 0.9 x10E3 [facility] - [facility] [place] EOSINOPHIL 0.20 0.0 - 0.2 x10E3 [facility] SERVICES - [facility] [place] BASOPHILS 0.01Comment: GAB JUAN 0 - 0.1 x10E3 [facility] ABSOLUTE ACCT#[id number], ,,,, LABORATORY SERVICES - [facility] Specimen Blood specimen (specimen) Performing Organization Address City/State/Zipcode Ph one Number [facility] LABORATORY SERVICES CLIA# [id number] [place] [address] [place] [address] LABORATORY SERVICES CLIA# [id number] [place] [address] [address] [address] * URINE CULTURE (02/06/2013 7:15 PM CDT) URINE CULTURE NO GROWTH AFTER 2 DAYSComment: [facility] ACCT#[id number], ,,,, SERVICES - [place] Specimen Performing Organization Address [facility] Ph one Number [facility] LABORATORY SERVICES CLIA# [id number] GAB JEFFERSON [facility] [phone] - [place] [address] [place] [address] LABORATORY SERVICES CLIA# [id number] [place] [address] - [place] [address] * URINALYSIS WITH REFLEX CULTURE (02/06/2013 7:15 PM CDT) GLUCOSE UA Trace (H) Negative mg/dl [facility] LABORATORY SERVICES - [place] BILIRUBIN UA Negative Negative [facility] LABORATORY SERVICES - [facility] FAYE KETONES UA Trace (H) Negative mg/dl [facility] LABORATORY SERVICES - [place] SPECIFIC 1.020 1.002 - 1.030 [facility] GRAVITY UA LABORATORY SERVICES - [place] PH UA 7.0 [facility] LABORATORY SERVICES - [place] PROTEIN UA 100 (H) Negative mg/dl [facility] LABORATORY SERVICES - [place] UROBILINOGEN UA 0.2 0.2 - 1.0 EU/dl [facility] LABORATORY SERVICES - [facility] FAYE NITRITE UA Positive (H) Negative [facility] Comment: LABORATORY Urine is grossly bloody. SERVICES - [facility] Substances that cause abnormal [place] urine color may affect the readability of test pads on urinalysis reagent strips. These substances include visible levels of blood. BLOOD UA Large (H) Negative [facility] LABORATORY SERVICES - [place] LEUKOCYTE Small (H) Negative [facility] LAB[facility]ATORY SERVICES - [place] WBC UA 2-5 0 - 5 /HPF [facility] LABORATORY SERVICES - [place] RBC UA Packed Field (H) 0 - 2 /HPF [facility] LABORATORY SERVICES - [place] BACTERIA UA Negative Negative /HPF [facility]ORATORY SERVICES - [place] MUCOUS, URINE Light /LPF [facility] LABORATORY SERVICES - [place] COMMENT, URINE See Culture Report.Comment: [facility][id number], ,,,, SERVICES - [place] Specimen Urine, clean catch Performing Organization Address [facility] [place] Ph one Number [facility]ORATORY SERVICES CLIA# [id number] GAB JEFFERSON 667 - [place] [address] [place] [address] LABORATORY SERVICES CLIA# [id number] [place] [address] - [address] documented in this encounter Visit Diagnoses Diagnosis Hematuria, unspecified - Primary Left flank pain Abdominal pain, unspecified site Kidney stones Calculus of kidney documented in this encounter Administered Medications Action Date Dose Rate Site Medication Order MAR Action 02/06/2013 8:13 PM CDT 500 mg ciprofloxacin (CIPRO) tablet 500 mg Given 500 mg, Oral, ONE TIME ONLY, 1 dose, Mo n 02/06/13 at 2015, Routine 02/06/2013 7:31 PM CDT 1,000 mL 1000 mL/hr sodium chloride 0.9% bolus solution New Bag 1,000 mL 1,000 mL, IV, ONE TIME ONLY, 1 dose, Mo n 02/06/13 at 1930, at 1,000 mL/hr, Administer over 60 Minutes, Routine documented in this encounter
--- OUTSIDE RECORDS SUMMARY | 2020-03-24 14:24 | XMS REPORT | Encounter Summary ---
Author Author [facility] Organization [facility] Address Unknown Phone Unavailable Care Team Providers Care Rn Bariatric Name Role Phone Shahram Mccallum MD PCP Unavailable Encounter Details Care Team Description Date Type Department Blayne Alberts, DO [address] [facility] [address] [place] [address] Marika Swann, Occupational Therapist 02/06/2013 [facility] F ort Encounter [facility] [address] [place] [address] Social History Date Tobacco [...]
--- OUTSIDE RECORDS SUMMARY | 2020-03-24 14:24 | XMS REPORT | Encounter Summary ---
Author Author [facility] Organization [facility] Address Unknown Phone Unavailable Care Team Providers Care Snuff Maker Name Role Phone Shahram Mccallum MD PCP Unavailable Reason for Visit * Reason Comments Blood in Urine seen in ER last night Encounter Details Care Team Description Date Type Department Shahram Mccallum MD NO ADDRESS ON FILE Staghorn renal calculus (Primary Dx) 02/07/2013 Office Visit [facility] [address] [place] [address] Social History Date Tobacco Use [...] Reading Time Taken Comments Vital Sign 120/62 02/07/2013 2:42 PM CDT Blood Pressure 80 02/07/2013 2:42 PM CDT Pulse - - Temperature - - Respiratory Rate - - Oxygen Saturation - - Inhaled Oxygen Concentration 85.7 kg (189 lb) 02/07/2013 2:42 PM CDT Weight 167.6 cm (5' 6") 02/07/2013 2:42 PM CDT Height 30.51 02/07/2013 2:42 PM CDT Body Mass Index documented in this encounter Progress Notes * Shahram Mccallum MD - 02/08/2013 8:08 PM CDT Subjective: Oliverio Dalton is a 62 y.o. male. Patient Active Problem List Diagnoses Code Renal stone 592.0 Cor athrscl-uns vessel 414.00 Unspecified essential hypertension 401.9 Other Convulsions 780.39 Chronic airway obstruction, not elsewhere classified 496 BPH w/o Urinary Obs/LUTS 600.00 Neurogenic bladder, NOS 596.54 Unspecified Glaucoma 365.9 Bipolar Disorder, Unspecified 296.80 Hyperlipidemia 272.4 Tubular Adenoma 229.9 Personal History of Colonic Polyps V12.72 MRSA (methicillin resistant staph aureus) culture positive V02.54 Status post laparoscopic appendectomy V45.89 Umbilical hernia without mention of obstruction or gangrene 553.1 Tendonitis of foot 727.06 Abdominal pain, suprapubic 789.09 Bradycardia 427.89 Urinary retention 788.20 Back pain 724.5 Urinary retention 788.20 Renal stone 592.0 LFT elevation 790.6 Osteoarthritis of right knee 715.96 Carpal tunnel syndrome 354.0 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 HPI: Mr. Dalton complains of the following (by systems): recent ER visit with increased flank pain but mostly recurrent michael hematuria. has known staghorn calculus. did not clear with lithotripsy. no fever, chill or systemic sxs. Review of Systems: ROS Denies all of the following: Headache Dizziness Chest pain Shortness of breath Bowel changes Bladder changes Pain in muscle or joints Exam/Objective: Normal Exam for Routine Visits: \\Blood pressure 120/62, pulse 80, height 5' 6" ( 1.676 m), weight 189 lb (85.73 kg). General appearance: healthy appearing, active, alert, cooperative, social, anish lly nourished, and in no acute distress Lungs: breath sounds equal, clear to auscultation bilaterally, no retractions, n o stridor, normal respiratory effort Heart: regular rate and rhythm, S1, S2 normal, no murmur, click, rub, gallop, or abnormal sounds. Abdomen: soft, non-tender. Bowel sounds normal. No masses, no organomegaly. Ac tive bowel sounds. Extremities: symmetrical non edematous. Assessment and Plan: ASSESSMENT: Encounter Diagnosis Name Primary? Staghorn renal calculus Yes PLAN: Orders Placed This Encounter oxyCODONE-acetaminophen (PERCOCET) 5-325 mg Oral tablet discusse with Dr Galvan who recommends [facility] referral as needs surg resection of s tone. Tabatha is at increased risk related to copd CV diseased, diabetes etc. Appropriate medications prescribed (see detailed AVS). Appropriate [...]
--- OUTSIDE RECORDS SUMMARY | 2020-03-24 14:24 | XMS REPORT | Encounter Summary ---
Author Author [facility] Organization [facility] Address Unknown Phone Unavailable Care Team Providers Care Cover Making Machine Operator Name Role Phone Shahram Mccallum MD PCP Unavailable Encounter Details Care Team Description Date Type Department Shahram Mccallum MD NO ADDRESS ON FILE 01/24/2013 Abstract [facility] [place] [address] [place] [phone] Social History Date Tobacco Use Types Packs/Day [...]
--- OUTSIDE RECORDS SUMMARY | 2020-03-24 14:24 | XMS REPORT | Encounter Summary ---
Author Author [facility] Organization [facility] Address Unknown Phone Unavailable Care Team Providers Care Pharmacy Sales Representative Name Role Phone Shahram Mccallum MD PCP Unavailable Encounter Details Care Team Description Date Type Department Gianfranco Alberts, DO [address] [facility] [address] [place] [address] Marika Swann, Occupational Therapist 01/24/2013 [facility] F ort Encounter [facility] [address] [place] [address] Social History Date Tobacco Use [...] needed for Shortness of Breath or Wheezing. 11/27/2016 naproxen sodium 220 mg Take 440 [...] of this encounter Miscellaneous Notes * Therapy Evaluation - Marika Clark, Occupational Therapist - 01/24/2013 3:00 PM CDT [facility] Services [address] [place] [address] , Oliverio [place] Evaluation Date: 01/24/2013 Diagnosis: L carpal tunnel release, guyons canal release, trigger finger release of digits 3,4,5 Treatment Diagnosis: pain, decreased ROM and strength Referring Physician: DR. 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 Past Medical History Diagnosis Date Wrist sprain [...] 02/01/2009 COLONOSCOPY performed by BEULAH ZHOU at [facility] OR Hx hernia repair 1988 And age 4 Hx lap cholecystectomy 05/17/07 Hx coronary artery bypass graft Hx heart catheterization 04/10 With angioplasty, 2 stents Pr lap,appendectomy 05/28/2012 APPENDECTOMY LAPAROSCOPIC performed by Beulah Zhou MD at [facility] [place] Pr repair umbilical colleen,4+y/o,reduc 05/28/2012 HERNIA UMBILICAL REPAIR performed by Beulah Zhou MD at [facility] [place] Allergies Allergen Reactions Codeine Unknown Doxycycline Rash Phenobarbital Weakness "relaxes me too much" Piperacillin-Tazobactam Hives and Rash Breaks out Terazosin Other (See Comments) Chest heaviness, chest pain Valium (Diazepam) Other (See Comments) "stops breathing, no pulse" Precautions: limit resistance, patient still has stitches Pain: Location: L hand and wrist Duration: frequent Pain Level: Pain Now: 04/17 Rest: 01/15 With Activities: 08/17 Alleviating Factors: rest Aggravating Factors: Bumping hand on objects Occupational History: retired Compromised Activities Limitations ADLs Pain, ROM, strength, fine motor control/dexterity Environment: Living Situation: lives alone Type of Home:1-story Amount o f Assistance at home: 5 hours during day M-sat, 6hrs on wednesday Current Assistive Devices: W/C, Walker, Tub Bench, Glasses, Hearing Aid and Den tures OBJECTIVE ASSESSMENT Palpation: mild edema in 3rd digit Sensation: Intact Location: L UE, S/D: 07/18 Activities of Daily Living Functional Level: BADL Current Prior Feedin 4 Bathing 5 2 Toileting 5 4 UE Dressing 4 2 LE Dressing 4 2 IADL Meal Prep 0 0 Med Manage 4 4 Technology Use 6 6 Home Mobility 6 6 Housekeeping (laundry, cleaning) 0 0 Community Mobility 0 0 Safety Concerns: patient reports hitting hand on multiple doorways Upper Extremity Manual Muscle Test/Range of Motion: 0= No movement 1= Trace 2= Poor 3= Fair 4= Good 5= Normal Right ROM Left ROM Movement Right Left within normal limits within normal limits Elbow Flexion 4 NT within normal limits within normal limits Elbow Extension 4 NT 70 50 Wrist Flexion 4 NT 45 30 Wrist Extension 4 NT within normal limits 45 degrees Supination 4 NT within normal limits within normal limits Pronation 4 NT Hand Dominance: right handed Right Left Finger Flexion fingers: full and fingers flex to palm fingers: finger flexion to 2-3 cm from palm Finger Extension fingers: full fingers: full Opposition WFL WFL Thumb Abduction WFL WFL Right Left Intervention Specialist NT NT 3 Finger Pinch NT NT Lateral Pinch NT NT Pincer NT NT Wound: Multiple incisions from surgeries in palm of hand and wrist The following screens were completed, through Intake Form, during this patient's initial evaluation: Suicide/Homicide, Falls Risk, Medication, Allergies, Social History, Medical His tory, Surgical History, Family History, Nutrition, Spiritual/Ethical and Abuse All components are documented in [facility] through "Therapy Intake Form", OP navigato r, or as otherwise needed in chart. Plan Frequency/Duration: Patient to be seen 2 per week for 4 Weeks. Patient Goal: regain function of L hand and decreased pain Short Term Goals: Time Frame 2 weeks Patient able to tolerate electrical high tension tester/pinch measurements with healed incisions Pain 1/10 at rest and 5/10 with activity Patient report completion of finger ROM Flexible Nanny Goals: Time Frame: 4 weeks Pain 0/10 at rest Pain 1/10 with ADLs Manage buttons/fasteners x 5 with no pain Wrist flexion AROM to 70 Wrist extension AROM to 50 Functional supination to near 90 degrees All fingers flex to palm Treatment Conducted at Evaluation: ROM exercise Treatment Plan: See care plan Marika Swann OT Occupational Therapist Signature 3 :12 PM CDT * Therapy Evaluation - Marika Clark, Occupational Therapist - 01/24/2013 2:57 PM CDT [facility] Services [address] [place], [place] [id number] , Occupational Therapy Plan of Care - Date: 01/24/2013 Oliverio Dalton Physician: DR. GIANFRANCO ALBERTS DO [...] o f this patient. Therapists Signature Marika Swann, OT As the physician over-seeing the ongoing [...] Signature Please return vi a fax to [phone] 2 :59 PM CDT documented in this encounter Plan of Treatment Not on filedocumented as of this encounter Visit Diagnoses Not on filedocumented in this encounter
--- OUTSIDE RECORDS SUMMARY | 2020-03-24 14:24 | XMS REPORT | Encounter Summary ---
Author Author [facility] Organization [facility] Address Unknown Phone Unavailable Care Team Providers Care Canvas Cutter Hand Name Role Phone Shahram Mccallum MD PCP Unavailable Encounter Details Care Team Description Date Type Department Blayne Alberts, DO [address] [facility] [address] [place] [address] Marika Swann, Occupational Therapist 01/25/2013 [facility] F ort Encounter [facility] [address] [place] [address] Social History Date Tobacco Use [...]
--- OUTSIDE RECORDS SUMMARY | 2020-03-24 14:24 | XMS REPORT | Encounter Summary ---
Author Author [facility] Organization [facility] Address Unknown Phone Unavailable Care Team Providers Care Senior Writer Name Role Phone Shahram Mccallum MD PCP Unavailable Encounter Details Care Team Description Date Type Department Blayne Alberts, DO [address] [facility] [address] [place] [address] Marika Swann, Occupational Therapist 01/31/2013 [facility] F ort Encounter [facility] [address] [place] [address] Social History Date Tobacco Use [...]
--- OUTSIDE RECORDS SUMMARY | 2020-03-24 14:24 | XMS REPORT | Encounter Summary ---
Author Author [facility] Organization [facility] Address Unknown Phone Unavailable Care Team Providers Care Asphalt Paving Foreman Name Role Phone Shahram Mccallum MD PCP Unavailable Encounter Details Care Team Description Date Type Department Karen Booker, RN CASE COMMUNICATION 01/31/2013 Home Care Visit [facility] h [facility] [address] [place] [address] Social History Date Tobacco Use [...]
--- OUTSIDE RECORDS SUMMARY | 2020-03-24 14:24 | XMS REPORT | Encounter Summary ---
Author Author [facility] Organization [facility] Address Unknown Phone Unavailable Care Team Providers Care Mine Inspector Name Role Phone Shahram Mccallum MD PCP Unavailable Encounter Details Care Team Description Date Type Department Karen Booker RN SN - HOME VISIT 02/07/2013 [facility] [address] [place] [address] Social History Date Tobacco Use [...] Reading Time Taken Comments Vital Sign 124/70 02/07/2013 12:00 PM CDT Blood Pressure - - Pulse 36.1 C (97 F) 02/07/2013 12:00 PM CDT Temperature 20 02/07/2013 12:00 PM CDT Respiratory Rate - - [...] Health Visit - Actions and Narratives Patient was seen in ER last night. He w as advised to take 2 of his pain pills for pain relief which did help a lot. Called Larissa at Dr. Eusebia johnson office to report blood in urine and poor pain control. Instructed larissa that patient was taki ng tylenol 500mg 4 times per day, 2 Aleve daily and percocet 5/325mg 1/2 tablet four times per day a nd that patient level is still at a 7 most of the time. Patient is to come to office at 1415 fo r evaluation by Dr. Mccallum. Patient has seen Dr. Pena (urologist) in the past and he states t hat patient needs referred to [facility] for kidney stone. documented in this encounter
--- OUTSIDE RECORDS SUMMARY | 2020-03-24 14:25 | XMS REPORT | Encounter Summary ---
Author Author [facility] Organization [facility] Address Unknown Phone Unavailable Care Team Providers Care Construction Carpenters Helper Name Role Phone Shahram Mccallum MD PCP Unavailable Encounter Details Care Team Description Date Type Department Adwoa Lee RN SN - HOME VISIT [facility] [address] [place] [address] Social History Date Tobacco Use [...] Signs Reading Time Taken Comments Vital Sign 120/65 12/27/2012 12:15 PM ADULT NEUROLOGIST Blood Pressure - - Pulse 36.1 C (97 F) 12/27/2012 12:15 PM ADULT NEUROLOGIST Temperature 18 12/27/2012 12:15 PM ADULT NEUROLOGIST Respiratory Rate - - Oxygen Saturation - [...]
--- OUTSIDE RECORDS SUMMARY | 2020-03-24 14:25 | XMS REPORT | Encounter Summary ---
Author Author [facility] Organization [facility] Address Unknown Phone Unavailable Care Team Providers Care General Freight Agent Name Role Phone Shahram Mccallum MD PCP Unavailable Encounter Details Care Team Description Date Type Department Walter Oconnor MD [address] [place] [address] [phone] DONNA Chao [phone] 12/28/2012 Abstract [facility] [address] [place] [phone] Social History Date Tobacco Use Types Packs/Day [...]
--- OUTSIDE RECORDS SUMMARY | 2020-03-24 14:25 | XMS REPORT | Encounter Summary ---
Author Author [facility] Organization [facility] Address Unknown Phone Unavailable Care Team Providers Care Home Health Occupational Therapist Name Role Phone Shahram Mccallum MD PCP Unavailable Encounter Details Care Team Description Date Type Department Adwoa Lee RN SN - HOME VISIT 01/10/2013 [facility] [address] [place] [address] Social History Date Tobacco Use [...] Reading Time Taken Comments Vital Sign 120/70 01/10/2013 12:45 PM CONCIERGE RECEPTIONIST Blood Pressure - - Pulse 36.1 C (97 F) 01/10/2013 12:45 PM CONCIERGE RECEPTIONIST Temperature 18 01/10/2013 12:45 PM CONCIERGE RECEPTIONIST Respiratory Rate - - Oxygen Saturation - [...] Fpc and monitoring of O2 saturation s. Variance [...] Home Health Visit - Actions and Narratives medication box. documented in this encounter
--- OUTSIDE RECORDS SUMMARY | 2020-03-24 14:25 | XMS REPORT | Encounter Summary ---
Author Author [facility] Organization [facility] Address Unknown Phone Unavailable Care Team Providers Care Pinsetter Mechanic Automatic Name Role Phone Shahram Mccallum MD PCP Unavailable Encounter Details Care Team Description Date Type Department Karen Booker, RN TELEPHONE ENCOUNTER 12/13/2012 [facility] [address] [place] [address] Social History Date Tobacco Use [...]
--- OUTSIDE RECORDS SUMMARY | 2020-03-24 14:25 | XMS REPORT | Encounter Summary ---
Author Author [facility] Organization [facility] Address Unknown Phone Unavailable Care Team Providers Care Chamber Magistrate Name Role Phone Shahram Mccallum MD PCP Unavailable Reason for Visit * Reason Comments Follow Up check up Results lab Encounter Details Care Team Description Date Type Department Shahram Mccallum MD NO ADDRESS ON FILE Back pain (Primary Dx); Unspecified essential hypertension; Hyperlipidemia; ASHD (arteriosclerotic heart disease); Type 2 diabetes mellitus 01/02/2013 Office Visit [facility] [address] [phone] Social History Date Tobacco Use Types Packs/Day [...] Signs Reading Time Taken Comments Vital Sign 152/70 01/02/2013 10:51 AM GAS CHARGER Blood Pressure - - Pulse - - Temperature - - Respiratory Rate - - Oxygen Saturation - - Inhaled Oxygen Concentration 84.8 kg (187 lb) 01/02/2013 10:51 AM GAS CHARGER Weight 168.9 cm (5' 6.5") 01/02/2013 10:51 AM GAS CHARGER Height 29.73 01/02/2013 10:51 AM GAS CHARGER Body Mass Index documented in this encounter Progress Notes * Shahram Mccallum MD - 01/02/2013 8:12 PM GAS CHARGER Subjective: Oliverio Dalton is a 62 y.o. [...] Prior to Visit Medication Sig Dispense Refill bethanechol (URECHOLINE) 25 mg Oral tablet Take 1 Tab by mouth 4 times daily . 120 Tab 11 isosorbide mononitrate SR 24 hour (IMDUR) 60 mg Oral tablet Take 1 Tab by mo uth 2 times daily. 60 Tab 11 esomeprazole (NEXIUM) 40 mg Oral CpDR Take 1 Cap by mouth daily before break fast. 30 Cap 11 oxyCODONE-acetaminophen (PERCOCET) 5-325 mg Oral tablet Take 1 Tab by mouth every 6 hours as needed for Pain, Moderate. 0.5 tab every 6 hours as needed for pain 50 Tab 0 zolpidem (AMBIEN) 10 mg Oral tablet Take [...] Take 40 mg by mouth Daily LATE. LORazepam (ATIVAN) 1 mg Oral tablet Take 1 Tab by mouth 2 times daily. 60 T ab 2 blood sugar diagnostic (ACCU-CHEK ACTIVE TEST) Misc [...] min. A fter supper 30 Cap 11 ezetimibe (ZETIA) 10 mg Oral tablet Take 1 Tab by mouth daily at bedtime. 3 0 Tab 5 pioglitazone (ACTOS) 30 mg Oral tablet Take [...] 4 hours as needed for P ain. Lab Results Component Value Date CHOLESTEROL 137* 01/02/2013 CHOLESTEROL 214* 08/15/2012 CHOLESTEROL 210* 04/13/2012 HDL 48 01/02/2013 HDL 42 08/15/2012 HDL 43 04/13/2012 LDL CALCULATED 70 01/02/2013 LDL CALCULATED 103 08/15/2012 LDL CALCULATED 102 04/13/2012 LDL CHOLESTEROL, DIRECT 125 12/10/2011 LDL CHOLESTEROL, DIRECT 123 08/04/2011 LDL CHOLESTEROL, DIRECT 125 04/02/2011 TRIGLYCERIDE 95 01/02/2013 TRIGLYCERIDE 345* 08/15/2012 TRIGLYCERIDE 323* 04/13/2012 ALT 28 01/02/2013 AST 13 01/02/2013 Lab Results Component Value Date CREATININE 0.61* 01/02/2013 BUN 12.0 01/02/2013 SODIUM 135 01/02/2013 POTASSIUM 3.8 01/02/2013 CHLORIDE 99 01/02/2013 CO2 25.9 01/02/2013 GFR 142 01/02/2013 Lab Results Component Value Date ALT 28 01/02/2013 AST 13 01/02/2013 ALKALINE PHOSPHATASE 184* 01/02/2013 BILIRUBIN TOTAL 0.3 01/02/2013 HPI: Mr. Dalton complains of the following (by systems): Arthritis symptoms: diffuse arthralgias and planning carpal tunnel repair L side . Chest Pain symptoms: none and shortness of breath Depression like symptoms: depressed mood and eeing Dr Fajardo after this visit. Diabetes Type II complaints: medication compliance: compliant [...] of Systems: MARA Has all of the following: Headache Dizziness Chest pain Shortness of breath Bowel changes Bladder changes Pain in muscle or joints Exam/Objective: Normal Exam for Routine Visits: \\Blood pressure 152/70, height 5' 6.5" (1.689 m) , weight 187 lb (84.823 kg). General appearance: [facility] ill disability appearing, active, alert, cooperati ve, social, normally nourished, and in no acute distress Lungs: breath sounds equal, clear to auscultation bilaterally, no retractions, n o stridor, normal respiratory effort Heart: regular rate and rhythm, S1, S2 normal, no murmur, click, rub, gallop, or abnormal sounds. Abdomen: soft, non-tender. Bowel sounds normal. No masses, no organomegaly. Ac tive bowel sounds. Extremities: symmetrical non edematous. L forearm in splint. Assessment and Plan: ASSESSMENT: Encounter Diagnoses Name Primary? Back pain Yes Unspecified essential hypertension Hyperlipidemia ASHD (arteriosclerotic heart disease) Type 2 diabetes mellitus PLAN: Orders Placed This Encounter CMP (4 MONTHS X 1) LIPID PANEL (4 MONTHS X 1) HEMOGLOBIN A1C (4 MONTHS X 1) Appropriate medications prescribed (see detailed AVS). Appropriate patient instructions provided (see detailed AVS). Follow-up as I have indicated. Medications and options explained to include common side effects. Understanding of medications, course, diagnosis, and expectations were expressed by patient/g uardian. CHARGER documented in this encounter Plan of Treatment Not on filedocumented as of this encounter Results * HEMOGLOBIN A1C (10/12/2013 9:00 AM GAS CHARGER) HEMOGLOBIN A1C 8.0 (H) 0.0 - 6.0 % [facility] [place] EST. AVG 183 mg/dL [facility] GLUCOSE, A1C LABORATORY SERVICES - [place] Specimen Blood specimen (specimen) Performing Organization Address City/[facility] Ph one Number [facility] CLIA# [id number] [place], [place] [address] [address] LABORATORY SERVICES CLIA# [id number] [place] [address] - [address] * LIPID PANEL (10/12/2013 9:00 AM GAS CHARGER) CHOLESTEROL 210 mg/dL [facility] - [place] TRIGLYCERIDE 432 mg/dL [facility] - [place] HDL 38 mg/dL [facility] - [place] LDL CALCULATED Comment: Calculated LDL is not <=130 mg/dL [facility] accurate when the Triglyceride LABORATORY value exceeds 400. SERVICES - [place] Specimen Blood specimen (specimen) Narrative Performed At TOTAL CHOLESTEROL mg/dL [facility] LABORATORY Desirable <200 SERVICES - [facility] Borderline high 200-239 [place] High >=240 TRIGLYCERIDES mg/dL Normal <150 Borderline high 150-199 High 200-499 Very high >=500 HDL CHOLESTEROL mg/dL Low <40 Normal 40-60 Desirable >60 LDL CHOLESTEROL mg/dL Optimal <100 Low risk 100-129 Borderline high 130-159 High 160-189 Very high >=190 Based on AHA/NCEP Guidelines Performing Organization Address City/[facility] Ph one Number [facility] CLIA# [id number] [place] [address] [place] [address] [place] [address] LABORATORY SERVICES CLIA# [id number] [place] [address] - [place] [address] [place] [address] * COMPREHENSIVE METABOLIC PANEL (10/12/2013 9:00 AM GAS CHARGER) [facility] Signature SODIUM 133 (L) 134 - 145 mmol/L [facility] [place] POTASSIUM 4.2 3.5 - 5.1 mmol/L [facility] [place] CHLORIDE 100 98 - 107 mmol/L [facility] - [facility] [place] CO2 26 22 - 31 mmol/L [facility] - [facility] [place] CALCIUM 9.1 8.5 - 10.1 mg/dL [facility] - [facility] [place] BUN 26 (H) 7 - 20 mg/dL [facility] - [facility] [place] CREATININE 0.78 0.67 - 1.17 mg/dL [facility] - [facility] [place] GLUCOSE 244 (H) 70 - 100 mg/dL [facility] - [place] TOTAL PROTEIN 7.5 6.4 - 8.2 g/dL [facility] - [facility] [place] ALBUMIN 3.8 3.4 - 5.0 g/dL [facility] - [facility] [place] BILIRUBIN TOTAL 0.4 <=1.1 mg/dL [facility] - [facility] [place] ALKALINE 119 40 - 136 U/L [facility] PHOSPHATASE [facility] - [place] AST 18 10 - 40 U/L [facility] [place] ALT 38 25 - 70 U/L [facility] - [facility] [place] GFR 100 >=60 mL/min/1.73 sq [facility] Comment: meter LABORATORY [...] Education Program GFR, 121 >=60 mL/min/1.73 sq [facility] LAO Comment: meter LABORATORY eGFR has not been [...] Specimen Blood specimen (specimen) Performing Organization Address City/State/[facility] Ph one Number [facility] CLIA# [id number] [place] [address] [address] LABORATORY SERVICES CLIA# [id number] [place] [address] - [address] documented in this encounter Visit Diagnoses Diagnosis Back pain - Primary Backache, unspecified Unspecified essential hypertension Hyperlipidemia Other and unspecified hyperlipidemia ASHD (arteriosclerotic heart disease) Coronary atherosclerosis of unspecified type of vessel, [place] or graft Type 2 diabetes mellitus Type II or unspecified type diabetes me llitus without mention of complication, not stated as uncontrolled documented in this encounter
--- OUTSIDE RECORDS SUMMARY | 2020-03-24 14:25 | XMS REPORT | Encounter Summary ---
Author Author [facility] Organization [facility] Address Unknown Phone Unavailable Care Team Providers Care Hot Dipper Name Role Phone Shahram Mccallum MD PCP Unavailable Encounter Details Care Team Description Date Type Department Walter Oconnor MD [address] [place] [address] 320/330 [place] [phone] 01/02/2013 Chart Note [facility] [address] [place] [phone] Social History Date Tobacco Use Types Packs/Day [...]
--- OUTSIDE RECORDS SUMMARY | 2020-03-24 14:25 | XMS REPORT | Encounter Summary ---
Author Author [facility] Organization [facility] Address Unknown Phone Unavailable Care Team Providers Care Hydraulic Oil Tool Operator Name Role Phone Shahram Mccallum MD PCP Unavailable Reason for Referral * Eval and Treat (Routine) Referred By Contact Referred To Contact Status Reason Specialty Diagnoses / Procedures Shahram Mccallum MD NO ADDRESS ON FILE Jose Bailey MD [address] [place] [address] Closed Orthopedic Diagnoses Surgery Carpal tunnel syndrome Encounter Details Care Team Description Date Type Department Rosalinda Bal Carpal tunnel syndrome (Primary Dx) 12/20/2012 Orders Only [address] [phone] Social History Date Tobacco Use [...] Name Type Priority Associated Diag noses Ordered: 12/20/2012 AMB REFERRAL TO Outpatient Routine Carpal tunnel syndrome ORTHOPEDIC SURGERY Referral documented as of this encounter Visit Diagnoses Diagnosis Carpal tunnel syndrome - Primary documented in this encounter
--- OUTSIDE RECORDS SUMMARY | 2020-03-24 14:25 | XMS REPORT | Encounter Summary ---
Author Author [facility] Organization [facility] Address Unknown Phone Unavailable Care Team Providers Care Physician Internist Name Role Phone Shahram Mccallum MD PCP Unavailable Reason for Visit * Reason Comments Information referral to ortho Encounter Details Care Team Description Date Type Department Rosalinda Bal Information (referral to ortho) 12/20/2012 Telephone [facility] Primar y Care [place] [address] [place] [address] Social History Date Tobacco [...] * Telephone Encounter - Rosalinda Bal - 12/20/2012 12:23 PM SCUDDING INSPECTOR Patient already saw Dr Bailey and wants to go elsewhere now. DING INSPECTOR documented in this encounter Plan of Treatment Not on filedocumented as of this encounter Visit Diagnoses Not on filedocumented in this encounter
--- OUTSIDE RECORDS SUMMARY | 2020-03-24 14:25 | XMS REPORT | Encounter Summary ---
Author Author [facility] Organization [facility] Address Unknown Phone Unavailable Care Team Providers Care Film Numberer Name Role Phone Shahram Mccallum MD PCP Unavailable Encounter Details Care Team Description Date Type Department Shahram Mccallum MD NO ADDRESS ON FILE [facility], Lab Schedule 01/02/2013 [facility] General Encounter Laboratory Services [address] [phone] Social History Date Tobacco Use [...] needed for Shortness of Breath or Wheezing. 12/27/2012 01/11/2014 bethanechol (URECHOLINE) Take 1 Tab by 120 Tab 11 25 mg Oral tablet mouth 4 times daily. 12/27/2012 01/03/2014 isosorbide mononitrate SR Take 1 Tab by 60 Tab 11 24 hour (IMDUR) 60 mg mouth 2 times Oral tablet daily. 12/27/2012 01/03/2014 esomeprazole (NEXIUM) 40 Take 1 Cap by 30 Cap 11 mg Oral CpDR mouth daily before breakfast. 12/20/2012 01/10/2013 oxyCODONE-acetaminophen Take 1 Tab by 50 Tab 0 (PERCOCET) 5-325 mg Oral mouth every 6 tablet hours as needed for Pain, Moderate. 0.5 tab every 6 hours as needed for pain 12/05/2012 02/28/2013 zolpidem (AMBIEN) 10 mg Take [...] by 0 Oral tablet mouth Daily LATE. 10/18/2012 01/10/2013 LORazepam (ATIVAN) 1 mg Take 1 Tab by 60 Tab 2 Oral tablet mouth 2 times daily. 03/14/2013 insulin glargine (LANTUS) Inject 30 0 100 unit/mL subCUT Soln Units by subcutaneous injection daily. 08/03/2012 08/22/2013 fenofibrate Take 1 Tab by 30 Tab 11 nanocrystallized (TRICOR) mouth daily 145 mg Oral tablet with supper. 07/12/2012 07/11/2013 tamsulosin (FLOMAX) 0.4 Take 1 Cap by 30 Cap 11 mg Oral capsule mouth daily. 30 min. After supper 07/12/2012 01/03/2013 ezetimibe (ZETIA) 10 mg Take 1 Tab by 30 Tab 5 Oral tablet mouth daily at bedtime. 05/03/2012 05/09/2013 pioglitazone (ACTOS) 30 Take 1 [...] Date/Time Associated Diag nosis URIC ACID Routine 01/02/2013 Gout 9:50 AM PANTOGRAPH OPERATOR HEMOGLOBIN A1C Stat 01/02/2013 DM w/o complica tion type 9:50 AM PANTOGRAPH OPERATOR I LIPID PANEL Stat 01/02/2013 Hyperlipidemia 9:50 AM PANTOGRAPH OPERATOR COMPREHENSIVE METABOLIC Stat 01/02/2013 Hyperl ipidemia PANEL 9:50 AM PANTOGRAPH OPERATOR documented in this encounter Results * LIPID PANEL (01/02/2013 9:50 AM PANTOGRAPH OPERATOR) [facility] CHOLESTEROL 137 (L) 140 - 200 mg/dl [facility] [place] TRIGLYCERIDE 95 0 - 199 mg/dl [facility] Comment: LABORATORY REFERENCE RANGE - [facility] [place] NORMAL LESS THAN 150 mg/dl BORDERLINE HIGH 150 - 199 mg/dl HIGH 200 - 499 mg/dl VERY HIGH GREATER THAN OR = 500 mg/dl HDL 48 27 - 67 mg/dl [facility] [place] LDL CALCULATED 70 <130 mg/dl [facility] Comment: LAB[facility]ATORY SERVICES - [place] RISK CATEGORY LDL GOAL High risk: <100 mg/dl CHD or CHD risk equivalents (optional goal: <70 mg/dl) (10-year risk > 20%) Moderately high risk <130 mg/dl 2+ risk factors (10-year risk 10% to 20%) Moderate risk: <130 mg/dl 2+ risk factors (10-year risk < 10%) Lower risk: <160 mg/dl 0-1 risk factor [facility] ACCT#[id number], ,,,, Specimen Blood specimen (specimen) Performing Organization Address City/State/Zipcode Ph one Number [facility] CLIA# [id number] [place] [address] [place] [address] [place] [address] LABORATORY SERVICES CLIA# [id number] [place] [address] - [address] * HEMOGLOBIN A1C (01/02/2013 9:50 AM PANTOGRAPH OPERATOR) HEMOGLOBIN A1C 7.1 (H) 0 - 6.0 % [facility] - [place] GLUCOSE, MEAN 157Comment: [facility],[place] mg/dl [facility] BLOOD ACCT#[id number], ,,,, LAB[facility]ATORY SERVICES - [place] Specimen Blood specimen (specimen) Performing Organization Address [facility] Ph one Number [facility] CLIA# [id number] [place] [address] - [facility] [place] [address] [place] [address] LABORATORY SERVICES CLIA# [id number] [place] [address] - [address] * COMPREHENSIVE METABOLIC PANEL (01/02/2013 9:50 AM PANTOGRAPH OPERATOR) GLUCOSE 133 (H) 70 - 100 mg/dl [facility] - [place] BUN 12.0 7 - 20 mg/dl [facility] - [place] CREATININE 0.61 (L) 0.67 - 1.17 mg/dl [facility] - [place] GFR 142 >60 ml/min [facility] [place] SODIUM 135 134 - 145 mmol/L [facility] [place] POTASSIUM 3.8 3.3 - 4.8 mmol/L [facility] [place] CHLORIDE 99 98 - 107 mmol/L [facility] [place] CO2 25.9 22 - 31 mmol/L [facility] [place] ANION GAP 10 7 - 16 [facility] [place] CALCIUM 9.3 8.5 - 10.1 mg/dl [facility] - [place] ALBUMIN 3.4 3.4 - 5.0 g/dl [facility] - [place] TOTAL PROTEIN 7.7 6.4 - 8.2 g/dl [facility] [place] BILIRUBIN TOTAL 0.3 <1.1 mg/dl [facility] - [place] ALKALINE 184 (H) 50 - 136 IU/L [facility] PHOSPHATASE LAB[facility]ATORY SERVICES - [place] AST 13 10 - 40 IU/L [facility] - [place] ALT 28Comment: [facility] 25 - 70 IU/L [facility] ACCT#[id number], ,,,, LABORATORY SERVICES - [place] Specimen Blood specimen (specimen) Performing Organization Address [facility] Ph one Number [facility] CLIA# [id number] [place] [address] - [address] LABORATORY SERVICES CLIA# [id number] [place] [address] * URIC ACID (01/02/2013 9:50 AM PANTOGRAPH OPERATOR) URIC ACID 4.0Comment: [facility] 3.5 - 7.2 mg/dl [facility] ACCT#[id number], ,,,, LABORATORY SERVICES - [place] Specimen Blood specimen (specimen) Performing Organization Address City/State/Zipcode Ph one Number [facility] CLIA# [id number] [place] [address] - [place] [address] [place] [address] LABORATORY SERVICES CLIA# [id number] [place] [address] documented in this encounter Visit Diagnoses Diagnosis Gout Gout, unspecified Hyperlipidemia Other and unspecified hyperlipidemia DM w/o complication type I 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
--- OUTSIDE RECORDS SUMMARY | 2020-03-24 14:25 | XMS REPORT | Encounter Summary ---
Author Author [facility] Organization [facility] Address Unknown Phone Unavailable Care Team Providers Care Personal Lines Advisor Name Role Phone Shahram Mccallum MD PCP Unavailable Reason for Visit * Reason Comments Surgical Clearance for [facility]o [facility] -- surge ry scheduled 01/06/13 Encounter Details Care Team Description Date Type Department Walter Oconnor MD [address] [place] [address] [address] [place] [phone] Surgical Clearance (for [facility] - - surgery scheduled 01/06/13) 01/02/2013 Telephone [facility] [address] [place] [address] Social History Date Tobacco Use [...] encounter Miscellaneous Notes * Telephone Encounter - Alvina Sherman RN - 01/02/2013 1:03 PM AIRPORT ENGINEER Beverley Arizmendi RN paged Dr. Oconnor to discuss upcoming carpal tunnel surgery sc heduled @ [facility] 01/06/13. Dr. Oconnor gave verbal orders to her for pt to h old plavix times 1 week. And that he had sent a note re: clearance to myself in Home Energy Auditor. ORT ENGINEER documented in this encounter Plan of Treatment Not on filedocumented as of this encounter Visit Diagnoses Not on filedocumented in this encounter
--- OUTSIDE RECORDS SUMMARY | 2020-03-24 14:25 | XMS REPORT | Encounter Summary ---
Author Author [facility] Organization [facility] Address Unknown Phone Unavailable Care Team Providers Care Inspector Conveyor Line Name Role Phone Shahram Mccallum MD PCP Unavailable Reason for Visit * Reason Comments Surgical Clearance Encounter Details Care Team Description Date Type Department Walter Oconnor MD [address] [place] [address] 320/330 Zh[place] [phone] Surgical Clearance 01/02/2013 Telephone [facility] [address] [place] [address] Social History Date Tobacco Use [...] Encounter - Alvina Sherman RN - 01/02/2013 1:07 PM FISCAL SERVICES DIRECTOR Oceanologist Notice: This patient is at intermediate to high risk for any surgery requiring general anesthesiology due to known multi-vessel and small vessel CAD amendable only to medical therapy. He has long-standing atypical/stable chest pain. ----- Message ----- From: Pao Thibodeaux Sent: 12/28/2012 12:36 PM To: Walter Oconnor MD Subject: Edit The scan below was edited by Pao Thibodeaux [[id number]] on 12/28/2012 at 12:36 PM; it is attached to the following: Abstract on 12/28/2012 with Walter Oconnor MD. Description Cardiac Clearance from Dr. Alberts to Dr. Oconnor 12/28/12 Patient Oliverio Dalton This message was sent to myself and Beverley Arizmendi, PRIYA from Dr. Walter Oconnor v zack Marielager @ 1023a on 01/02/2013 [place] SERVICES DIRECTOR documented in this encounter Plan of Treatment Not on filedocumented as of this encounter Visit Diagnoses Not on filedocumented in this encounter
--- OUTSIDE RECORDS SUMMARY | 2020-03-24 14:25 | XMS REPORT | Encounter Summary ---
Author Author [facility] Organization [facility] Address Unknown Phone Unavailable Care Team Providers Care Emergency Medical Technician/Driver Name Role Phone Shahram Mccallum MD PCP Unavailable Encounter Details Care Team Description Date Type Department Karen Booker RN SN - HOME VISIT [facility] [address] [place] [address] Social History Date Tobacco Use [...] Reading Time Taken Comments Vital Sign 122/78 01/17/2013 1:00 PM CDT Blood Pressure - - Pulse 36.7 C (98 F) 01/17/2013 1:00 PM CDT Temperature 18 01/17/2013 1:00 PM CDT Respiratory Rate - - [...]
--- OUTSIDE RECORDS SUMMARY | 2020-03-24 14:25 | XMS REPORT | Encounter Summary ---
Author Author [facility] Organization [facility] Address Unknown Phone Unavailable Care Team Providers Care Manager Corporate Strategy Name Role Phone Shahram Mccallum MD PCP Unavailable Reason for Visit * Reason Comments Medication Refill Encounter Details Care Team Description Date Type Department Shahram Mccallum MD NO ADDRESS ON FILE 01/03/2013 Refill [facility] Primar y Care [address] [phone] Social History Date Tobacco Use Types Packs/Day [...]
--- OUTSIDE RECORDS SUMMARY | 2020-03-24 14:25 | XMS REPORT | Encounter Summary ---
Author Author [facility] Organization [facility] Address Unknown Phone Unavailable Care Team Providers Care Retail Coverage Merchandiser Name Role Phone Shahram Mccallum MD PCP Unavailable Encounter Details Care Team Description Date Type Department Karen Booker RN SN - HOME VISIT [facility] [address] [place] [address] Social History Date Tobacco Use [...] Plan of Care of Disciplines: patient/ca Senior Care regiver that do not follow the plan of care. Active - 2 problem interventions scheduled/documented in this visit Home Safety Home 12/05/2012 Disciplines: safety Senior Care Active - 1 [...] to patient Fall Risk Assessment. Visit on 12/20/2012 by Karen Booker RN [[id number]] at 12/20/2012 3:34:12 PM Medication neighborhood planner filled Medication box Problem: Completed Description: Medication SN [...] Health Visit - Actions and Narratives Patient had oxycodone script of 50 tabl ets filled on 12/02/12. He only has 5 pills left and is crying out in pain stating that he is just not getting pain relief and that he doesn't want to eat or do anything due to the pain. Script reads for patient to take 1/2 to 1 tablet every 6 hours as needed for pain. So script isn't even enough p ills to take 2 per day. This patient up until a couple of months ago did not ever complain of darinel n except for the occasional chest pain so this is definately different for him. I did call and speak with Rosalinda at Dr. Mccallum and explained the situation. She will talk to Dr. Mccallum and call me andrae castellanos. She did call me back at 1430 to say new script was sent to pharmacy for 50 tablets of the oxycodone. I called and gave this information to jose a esparza and he will have his paid caregiver fruit picker the medication. documented in this encounter
--- OUTSIDE RECORDS SUMMARY | 2020-03-24 14:25 | XMS REPORT | Encounter Summary ---
Author Author [facility] Organization [facility] Address Unknown Phone Unavailable Care Team Providers Care Java [id number] Software Engineer Name Role Phone Shahram Mccallum MD PCP Unavailable Reason for Visit * Reason Comments Medication Refill Encounter Details Care Team Description Date Type Department Shahram Mccallum MD NO ADDRESS ON FILE 12/27/2012 Refill [facility] Primar y Care [address] [phone] Social History Date Tobacco Use Types Packs/Day [...]
--- OUTSIDE RECORDS SUMMARY | 2020-03-24 14:25 | XMS REPORT | Encounter Summary ---
Author Author [facility] Organization [facility] Address Unknown Phone Unavailable Care Team Providers Care Window Shade Cutter And Mounter Name Role Phone Shahram Mccallum MD PCP Unavailable Reason for Visit * Reason Comments Erroneous encounter-disregard Encounter Details Care Team Description Date Type Department Walter Oconnor MD [address] [facility] [address] DON[place] Chao [phone] Erroneous encounter-disregard 01/02/2013 Telephone [facility] [address] [place] [address] Social History Date Tobacco [...]
--- OUTSIDE RECORDS SUMMARY | 2020-03-24 14:25 | XMS REPORT | Encounter Summary ---
Author Author [facility] Organization [facility] Address Unknown Phone Unavailable Care Team Providers Care Hat Braider Name Role Phone Shahram Mccallum MD PCP Unavailable Reason for Visit * Reason Comments Pain Depression Encounter Details Care Team Description Date Type Department Shahram Mccallum MD NO ADDRESS ON FILE Pain; Depression 12/13/2012 Telephone [facility] Primar y Care [place] [address] [place] [address] Social History Date Tobacco Use [...] * Telephone Encounter - Nuris Miramontes - 12/13/2012 3:54 PM ORGAN BUILDER Karen from [facility] states this patient has increased depression sxs. Pt is presently taking prozac 20 mg sig: one tab daily. Increase prozac 20 mg to two tabs daily. Pt has been taking celebrex and naprosyn both. Order given to d /c celebrex. N BUILDER documented in this encounter Plan of Treatment Not on filedocumented as of this encounter Visit Diagnoses Not on filedocumented in this encounter
--- OUTSIDE RECORDS SUMMARY | 2020-03-24 14:25 | XMS REPORT | Encounter Summary ---
Author Author [facility] Organization [facility] Address Unknown Phone Unavailable Care Team Providers Care Sand Carrier Name Role Phone Shahram Mccallum MD PCP Unavailable Reason for Visit * Reason Comments Medication Refill Encounter Details Care Team Description Date Type Department Shahram Mccallum MD NO ADDRESS ON FILE 01/10/2013 Refill [facility] Primar y Care [address] [phone] Social History Date Tobacco Use Types Packs/Day [...]
--- OUTSIDE RECORDS SUMMARY | 2020-03-24 14:25 | XMS REPORT | Encounter Summary ---
Author Author [facility] Organization [facility] Address Unknown Phone Unavailable Care Team Providers Care Emergency Services Dispatcher Name Role Phone Shahram Mccallum MD PCP Unavailable Encounter Details Care Team Description Date Type Department Karen Booker RN SN - HOME VISIT 01/03/2013 [facility] [address] [place] [address] Social History Date Tobacco Use [...] Reading Time Taken Comments Vital Sign 122/70 01/03/2013 1:00 PM CHEMICAL EQUIPMENT SALES ENGINEER Blood Pressure - - Pulse 36.6 C (97.8 F) 01/03/2013 1:00 PM CHEMICAL EQUIPMENT SALES ENGINEER Temperature 18 01/03/2013 1:00 PM CHEMICAL EQUIPMENT SALES ENGINEER Respiratory Rate - - Oxygen Saturation - [...] visit Home Safety Home 12/05/2012 Disciplines: safety Detention Active - 1 problem intervention scheduled/documented in this visit Medications Management 12/05/2012 Disciplines: of home Detention medication s Active - 1 problem intervention scheduled/documented in this visit Pulse Oximetry Skilled 12/05/2012 Disciplines: assessment Detention and monitoring of O2 saturation s. Active - 1 problem intervention scheduled/documented in this visit Skilled Observation and Skilled 12/05/2012 Assessment nursing Disciplines: observatio Detention n and [...] pain level a nieves 5 because patient had just taken a pain pill before I arrived. Patient is scheduled for surge ry this Wednesday to repair his carpal tunnel syndrome in [place]. He is hoping to get pain rel ief after recovering from surgery. documented in this encounter
--- OUTSIDE RECORDS SUMMARY | 2020-03-24 14:25 | XMS REPORT | Encounter Summary ---
Author Author [facility] Organization [facility] Address Unknown Phone Unavailable Care Team Providers Care Welcome Desk Agent Name Role Phone Shahram Mccallum MD PCP Unavailable Reason for Visit * Reason Comments Pain out of Percocet 5/325 recei katie #50 12/02/12 Encounter Details Care Team Description Date Type Department Rosalinda Bal Pain (out of Percocet 5/325 received #50 12/02/12) 12/20/2012 Telephone [facility] Prim[facility] y Care [address] [phone] Social History Date Tobacco Use Types Packs/Day [...] Telephone Encounter - Rosalinda Bal - 12/20/2012 2:53 PM GAMBLING BOX PERSON Per Dr Mccallum may refill Percoet 5/325 #50. LING BOX PERSON documented in this encounter Plan of Treatment Not on filedocumented as of this encounter Visit Diagnoses Not on filedocumented in this encounter
--- OUTSIDE RECORDS SUMMARY | 2020-03-24 14:25 | XMS REPORT | Encounter Summary ---
Author Author [facility] Organization [facility] Address Unknown Phone Unavailable Care Team Providers Care Addiction Therapist Name Role Phone Shahram Mccallum MD PCP Unavailable Encounter Details Care Team Description Date Type Department Karen Booker RN SN - HOME VISIT 01/24/2013 [facility] [address] [place] [address] Social History Date Tobacco Use [...] Reading Time Taken Comments Vital Sign 128/74 01/24/2013 1:00 PM CDT Blood Pressure - - Pulse 36.7 C (98 F) 01/24/2013 1:00 PM CDT Temperature 18 01/24/2013 1:00 PM CDT Respiratory Rate - - [...] to patient Fall Risk Assessment. Visit on 01/24/2013 by Karen Booker RN [[id number]] at 01/24/2013 3:28:45 PM Medication paraplanner filled. Medication box Problem: Completed Description: Medication SN [...] Home Health Visit - Actions and Narratives Medication paraplanner filled for one week. Patient is not having rehab on left wrist. States that the pain continues but is slowly improving. documented in this encounter
--- OUTSIDE RECORDS SUMMARY | 2020-03-24 14:25 | XMS REPORT | Encounter Summary ---
Author Author [facility] Organization [facility] Address Unknown Phone Unavailable Care Team Providers Care Director Oracle Retail Name Role Phone Shahram Mccallum MD PCP Unavailable Encounter Details Care Team Description Date Type Department Walter Oconnor MD [address] [place] [address] 320/330 [place] Chao [phone] 12/28/2012 Abstract [facility] [address] [place] [phone] Social History Date Tobacco Use Types Packs/Day [...]
--- OUTSIDE RECORDS SUMMARY | 2020-03-24 14:26 | XMS REPORT | Encounter Summary ---
Author Author [facility] Organization [facility] Address Unknown Phone Unavailable Care Team Providers Care Drill Instructor Name Role Phone Shahram Mccallum MD PCP Unavailable Reason for Visit * Auth/Cert Referred By Contact Referred To Contact Status Reason Specialty Diagnoses / Procedures [facility] Home Health [facility] [address] [place] [address] Closed Home Health Encounter Details Care Team Description Date Type Department Karen Booker RN 60 DAY SUMMARY 12/05/2012 Home Care Visit [facility] [address] [place] [address] Social History Date Tobacco Use [...] Visit - Care Plan Visit Type - 60 DAY SUMMARY Discipline - Long-Term Status Goals Interventions Problem Descriptio Start Date n Resolved on 12/05/2012 - 3 problem interventions scheduled/documented in this visit Apprehension/Nervousness Feelings 12/05/2012 - COPD of dread Disciplines: and Long-Term apprehensi on Resolved on 12/05/2012 - 3 problem interventions scheduled/documented in this visit Breathing Problems - COPD Inadequate 08/03/2012 Disciplines: breathing Long-Term pattern Resolved on 12/05/2012 - 3 problem interventions scheduled/documented in this visit Failure to Comply With Behaviors 08/03/2012 Plan of Care of Disciplines: patient/ca Long-Term regiver that do not follow the plan of care. Resolved on 12/05/2012 - 1 problem intervention scheduled/documented in this visit Continuum of Care Monitor/ed 08/03/2012 Disciplines: ucate/rein Long-Term force medical appointmen t compliance . Identify and facilitate appropriat e discipline referrals. Resolved on 12/05/2012 - 2 problem interventions scheduled/documented in this visit Injury Prevention - At risk 08/03/2012 Hypertension for Disciplines: injury: Long-Term related to internal factors resulting from complicati ons of hypertensi on Resolved on 12/05/2012 - 4 problem interventions scheduled/documented in this visit Learning/Teaching Needs - Learning 08/03/2012 Diabetes and Disciplines: teaching Long-Term needs associated with diagnosis Resolved on 12/05/2012 - 3 problem interventions scheduled/documented in this visit Learning/Teaching Needs - Lack of 08/03/2012 Hypertension knowledge Disciplines: re: Long-Term medical regimen related to controllin g/managing hypertensi on Resolved on 12/05/2012 - 4 problem interventions scheduled/documented in this visit Medications Management 08/03/2012 Disciplines: of home Long-Term medication s Active - 1 problem intervention scheduled/documented in this visit Medications Management 12/05/2012 Disciplines: of home Long-Term medication s Resolved on 12/05/2012 - 2 problem interventions scheduled/documented in this visit Problems with Activity - Decreased 08/03/2012 COPD tolerance Disciplines: to normal Long-Term activities related to dyspnea and fatigue. Variance Visit Notes Intervention Associated Status Problem/Go al Skilled assessment Problem: Scheduled anxiety Apprehensi Description: on/Nervous Assess patient's level of ness - anxiety and identify COPD precipitating factors. Evaluate the effectiveness of the current treatment regimen and notify physician for the need for changes in the plan of care. Skilled assessment coping Problem: Scheduled Description: Apprehensi Assess the Patient on/Nervous learning and coping ness - abilities, developmental COPD level, support system, willingness to learn, barriers to communication, and willingness to participate in the prescribed treatment regimen. Assist Patient in developing new coping mechanisms as needed. Teach anxiety reduction Problem: Scheduled techniques Apprehensi Description: on/Nervous Assist Patient in ness - providing a calm COPD environment with minimal disturbances. Encourage family members and friends to visit in small numbers to reduce stimulation. Instruct Patient on the proper administration and usage of medications prescribed to reduce anxiety and dyspnea. Instruct breathing Problem: Scheduled techniques Breathing Description: Problems - Instruct Patient in COPD deep-breathing and coughing exercises, pursed-lip and abdominal breathing, and positioning for optimal breathing pattern. Monitor oxygen saturation Problem: Scheduled Description: Breathing Monitor and record O2 Problems - saturation when sitting. COPD Skilled assessment Problem: Scheduled breathing pattern Breathing Description: Problems - Assess lung sounds, COPD ventilatory pattern, rate, and depth. Identify aggravating/alleviating factors that worsen/enhance breathing pattern. Behavioral contract Problem: Scheduled Description: Failure to Develop a behavioral Comply contract with Patient With Plan outlining cedeno elements of of Care the plan of care, goals, rewards, and strategies to adhere to the treatment regime. Instruct treatment Problem: Scheduled regimen Failure to Description: Comply Instruct Patient on the With Plan prescribed treatment of Care regimen, risks/negative implications related to not complying with physician's orders, and strategies to assist with compliance. Skilled assessment Problem: Scheduled noncompliance Failure to Description: Comply Assess and evaluate With Plan possible causes for of Care non-compliance including: access issues, financial concerns, misconceptions/perception s. Assess ability/willingness to learn and coping mechanisms. Evaluate the effectiveness of teaching and progress towards goals every visit and modify the plan of care as needed. HH Review Medical Problem: Scheduled Appointments Description: Continuum Review medical of Care appointments with patient and caregiver. Reinforce importance of compliance with scheduled appointments. Instruct home safety Problem: Scheduled Description: Injury Instruct on safe use of Prevention assistive devices and - home modifcations to Hypertensi increase safety. Instruct on regarding prevention of orthostatic event: slow position changes, "dangling" prior to rising from bed, proper hydration per patient requirements. Skilled assessment risk Problem: Scheduled for injury Injury Description: Prevention Assess patient's sensory - perception, ability for Hypertensi ambulation and movement, on disorientation or changes in mentation. Assess vital signs for indications of potential risk for injury (i.e. orthostatic blood pressures as applicable). Assess the home environment for potential hazards. Monitor ongoing changes in Fall Risk Assessment. Instruct diet Problem: Scheduled Description: Learning/T Instruct on diabetic diet eaching and any fluid Needs - restrictions/requirements Diabetes . Instruct on how to keep a daily log of blood sugars. Instruct s/s of Problem: Scheduled hyper/hypoglycemia Learning/T Description: eaching Instruct patient on the Needs - s/s of hyper/hypoglycemia Diabetes events, prevention, and the actions to take to resolve the events. Skilled assessment Problem: Scheduled nutrition Learning/T Description: eaching Assess patient's current Needs - nutritional status, Diabetes factors that affect the patient's ability to purchase and prepare meals, food preferences, current eating practices, and current knowledge of intake requirements. Assist with meal planning and instruct on nutritional requirements. Teach diabetes Problem: Scheduled Description: Learning/T SN to teach eaching patient/caregiver re: Needs - management of diabetes Diabetes diet, skin care, foot care, administration of insulin, blood glucose monitoring, signs and symptoms of hyper/hypoglycemia, management of hyper/hypoglycemia and sick day management and when to notify HH, physician, or EMS. Evaluate the effectiveness of the current treatment regimen and notify physician for the need for changes in the plan of care. Instruct daily log Problem: Scheduled Description: Learning/T SN to evaluate each eaching visit and notify Needs - physician of any abnormal Hypertensi readings. on Notify physician Problem: Scheduled Description: Learning/T Instruct Patient on signs eaching & symptoms of Needs - hypertension and when to Hypertensi call physician and on emergency management. Skilled assessment Problem: Scheduled knowledge deficit Learning/T Description: eaching Assess and evaluate Needs - Patient need for teaching Hypertensi related to COPD, on diabetes, signs and symptoms of infection, home safety and medications. Medication administration Problem: Scheduled Description: Medication Patient to take s medications from medication box set up by SN. Medication box Problem: Scheduled Description: Medication Fill Medication process planner s weekly. Skilled assessment Problem: Scheduled medications Medication Description: s Perform medication reconciliation. Review and identify any unnecessary therapeutic duplication. Assess patient/caregiver ability to manage medications. Assess patient/caregiver knowledge of drug allergies, dose/route/frequency, new or changed medications, classification, reason for taking, effectiveness, drug interactions, food interactions, side effects/adverse reactions, contraindications, duplicative therapy, lab tests required, and ability to use pill box and/or medication list. Assess ability to obtain medications (access/finacial). Evaluate the effectiveness of the current treatment regimen and notify physician for the need for changes in the plan of care. Teach medication Problem: Scheduled management Medication Description: s Instruct Patient in medication administration, purpose, dosages, preparation, scheduling, side effect, food/drug interactions, and potential complications. Review medications each visit and update patient's copy of medication list as needed. Medication box Problem: Scheduled Description: Medication SN to fill medication box s every Wednesday. SN to instruct Patient and Caregiver and monitor for proper filling and administration. Skilled assessment Problem: Scheduled activity intolerance Problems Description: with Assess patient's response Activity - to activities and COPD aggravating/alleviating factors. Identify and establish guidelines and goals for activity. Establish baseline Fall Risk Assessment and monitor ongoing for changes. Teach energy conservation Problem: Scheduled Description: Problems Teach Patient energy with conservation techniques: Activity - Use of bedside commode COPD and energy-saving devices, rest/activity balance, encourage patient to ask for assistance with ADLs/IADLs. documented in this encounter
--- OUTSIDE RECORDS SUMMARY | 2020-03-24 14:26 | XMS REPORT | Encounter Summary ---
Author Author [facility] Organization [facility] Address Unknown Phone Unavailable Care Team Providers Care Meat Counter Clerk Name Role Phone Shahram Mccallum MD PCP Unavailable Encounter Details Care Team Description Date Type Department Shahram Mccallum MD NO ADDRESS ON FILE 12/07/2012 Abstract [facility] Primar y Care [place] [address] [place] [phone] Social History Date Tobacco Use Types Packs/Day [...]
--- OUTSIDE RECORDS SUMMARY | 2020-03-24 14:26 | XMS REPORT | Encounter Summary ---
Author Author [facility] Organization [facility] Address Unknown Phone Unavailable Care Team Providers Care Manufacturing Helper Name Role Phone Shahram Mccallum MD PCP Unavailable Encounter Details Care Team Description Date Type Department Shahram Mccallum MD NO ADDRESS ON FILE Danette Go, Physical Therapist [phone] Danette Madsen 12/05/2012 [facility] Therapy [facility] Encounter [facility] [address] [place] [address] Social History Date Tobacco Use Types Packs/Day [...] needed for Shortness of Breath or Wheezing. 12/05/2012 02/28/2013 zolpidem (AMBIEN) 10 mg Take 1 Tab by 30 Tab 2 Oral tablet mouth nightly as needed for Insomnia. 11/29/2012 12/20/2012 oxyCODONE-acetaminophen Take 1 Tab by 50 Tab 0 (PERCOCET) 5-325 mg Oral mouth every 6 tablet hours as needed for Pain, Moderate. 0.5 tab every 6 hours as needed for pain 11/24/2012 05/16/2013 ondansetron (ZOFRAN ODT) Place 1 [...] daily 145 mg Oral tablet with supper. 07/19/2012 12/27/2012 bethanechol (URECHOLINE) Take 1 Tab by 120 Tab 11 25 mg Oral tablet mouth 4 times daily. 07/12/2012 07/11/2013 tamsulosin (FLOMAX) 0.4 Take 1 [...] Tab 11 mg Oral tablet mouth daily. 12/22/2011 12/27/2012 esomeprazole (NEXIUM) 40 Take 1 Cap by 30 Cap 11 mg Oral CpDR mouth daily before breakfast. 12/15/2011 12/27/2012 isosorbide mononitrate SR Take 1 Tab by 60 Tab 11 24 hour (IMDUR) 60 mg mouth 2 times Oral tablet daily. 11/10/2011 05/09/2013 nitroglycerin (NITROSTAT) Place 1 [...]
--- OUTSIDE RECORDS SUMMARY | 2020-03-24 14:26 | XMS REPORT | Encounter Summary ---
Author Author [facility] Organization [facility] Address Unknown Phone Unavailable Care Team Providers Care Emergency Planning And Response Manager Name Role Phone Shahram Mccallum MD PCP Unavailable Reason for Referral * Eval and Treat (Routine) Referred By Contact Referred To Contact Status Reason Specialty Diagnoses / Procedures Jona Doran APRN [address] [place] [address] 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 Encounter Details Care Team Description Date Type Department Jona Doran APRN [address] [place] [address] Carpal tunnel syndrome; Ulnar nerve entrapment at wrist; Wrist arthritis 11/30/2012 Orders Only [facility] [place] [address] [place] [address] Social History Date Tobacco Use [...] Name Type Priority Associated Diag noses Ordered: 11/30/2012 AMB REFERRAL TO Outpatient Routine Carpal tunnel syndrome OCCUPATIONAL THERAPY Referral Ulnar nerve entra pment at wrist Wrist arthritis documented as of this encounter Visit Diagnoses Diagnosis Carpal tunnel syndrome 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
--- OUTSIDE RECORDS SUMMARY | 2020-03-24 14:26 | XMS REPORT | Encounter Summary ---
Author Author [facility] Organization [facility] Address Unknown Phone Unavailable Care Team Providers Care Derrick Car Operator Name Role Phone Shahram Mccallum MD PCP Unavailable Reason for Visit * Reason Comments Medication Refill Percocet Encounter Details Care Team Description Date Type Department Rosalinda Bal 11/29/2012 Refill [facility] Primar y Care [place] [address] [place] [address] Social History Date Tobacco Use [...] * Telephone Encounter - Rosalinda Bal - 11/29/2012 11:59 AM TESTER ROCKET ENGINE Per Dr Mccallum may have refill Percocet #50, would still like to take lowe st amount as can to control pain. ER ROCKET ENGINE documented in this encounter Plan of Treatment Not on filedocumented as of this encounter Visit Diagnoses Not on filedocumented in this encounter
--- OUTSIDE RECORDS SUMMARY | 2020-03-24 14:26 | XMS REPORT | Encounter Summary ---
Author Author [facility] Organization [facility] Address Unknown Phone Unavailable Care Team Providers Care Manager Hospital Name Role Phone Shahram Mccallum MD PCP Unavailable Reason for Visit * Eval and Treat (Routine) Referred By Contact Referred To Contact Status Reason Specialty Diagnoses / Procedures Jona Doran, JONNATHAN [address] [place] [address] [facility] Occupational Therapy [address] [place] [phone] Closed Occupational Diagnoses Therapy Carpal tunnel syndrome 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 Occupational Therapy [address] [place] [phone] Social History Date Tobacco Use Types [...] needed for Shortness of Breath or Wheezing. 11/29/2012 12/20/2012 oxyCODONE-acetaminophen Take 1 Tab by [...] 2 Oral tablet mouth 2 times daily. 08/30/2012 12/05/2012 zolpidem (AMBIEN) 10 mg Take 1 Tab by 30 Tab 2 Oral tablet mouth nightly as needed for Insomnia. 03/14/2013 insulin glargine (LANTUS) Inject 30 0 [...] as of this encounter Progress Notes * Scanning, Aok - 12/27/2012 2:00 PM SAMPLE BOOK MAKER Electronically signed by Interface, [facility] Aok Transcriptions Incoming at 3 2:00 PM SAMPLE BOOK MAKER documented in this encounter Miscellaneous Notes * Scanned Form - Scanning, Aok - 12/27/2012 2:00 PM SAMPLE BOOK MAKER Electronically signed by Interface, [facility] Ao Transcriptions Incoming at 3 2:00 PM SAMPLE BOOK MAKER * Therapy Evaluation - Marika Clark, Occupational Therapist - 12/02/2012 4:16 PM SAMPLE BOOK MAKER [facility] Therapy Services [address] [place] [id number] , Oliverio Dalton Evaluation Date: 12/02/2012 Diagnosis: Carpal tunnel syndrome [354.0] Ulnar nerve entrapment at wrist [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.2] Wrist arthritis [716.93] Treatment Diagnosis: Pain, decreased ROM Referring Physician: JUAN Briscoe Time In/Time Out:822/915 SUBJECTIVE HISTORY Date of Onset:started about 6 months ago Mechanism of Injury: unknown Prior History: Patient [...] 02/01/2009 COLONOSCOPY performed by BEULAH ZHOU at [facility] OR Hx hernia repair 1988 And age 4 Hx lap cholecystectomy 05/17/07 Hx coronary artery bypass graft Hx heart catheterization 04/10 With angioplasty, 2 stents Pr lap,appendectomy 05/28/2012 APPENDECTOMY LAPAROSCOPIC performed by Beulah Zhou MD at [facility] OR Pr repair umbilical colleen,4+y/o,reduc 05/28/2012 HERNIA UMBILICAL REPAIR performed by Beulah Zhou MD at [facility] OR Allergies Allergen Reactions Codeine Unknown Doxycycline Rash Phenobarbital Weakness "relaxes me too much" Piperacillin-Tazobactam Hives and Rash Breaks out Terazosin Other (See Comments) Chest heaviness, chest pain Valium (Diazepam) Other (See Comments) "stops breathing, no pulse" Precautions: none Pain: Location: L UE, starts around wrist and can hurt all the way to shoulder Duration: constant Pain Level: Pain Now: 05/17 Rest: 03/17 With Activities: 08/17 Alleviating Factors: pain medication Aggravating Factors: Any movement or pressure to hand and wrist Occupational History: retired Compromised Activities Limitations ADLs and IADLs Pain, decreased ROM and strength Environment: Living Situation:lives alone Type of Home:1-story Steps to enter home: none steps Railing: RAMP Amount o f Assistance at home: 36 hours per week Current Assistive Devices: W/C, Cane, Walker, Tub Bench, Glasses, Hearing Aid a nd Dentures OBJECTIVE ASSESSMENT Palpation: painful to all touch, deficits in sharp dull in fingers, sensitive to heat Sensation: Hypersensitive Location: R UE Activities of Daily Living Functional Level: BADL Current Prior Feedin 6 Bathing 2 6 Toileting 3 6 UE Dressing 4 6 LE Dressing 3 6 IADL Meal Prep 0 0 Med Manage 5 5 Technology Use 1 6 Home Mobility 4 6 Housekeeping (laundry, cleaning) 0 0 Community Mobility 1 5 Safety Concerns:altered sensation in UE: Upper Extremity Manual Muscle Test/Range of Motion: MMT not completed due to level of pain with all movement 0= No movement 1= Trace 2= Poor 3= Fair 4= Good 5= Normal Right ROM Left ROM Movement Right Left within normal limits within normal limits Shoulder Flex NT NT within normal limits within normal limits Shoulder Abd NT NT within normal limits within normal limits Shoulder IR NT NT within normal limits within normal limits Shoulder ER NT NT within normal limits within normal limits Elbow Flexion NT NT within normal limits within normal limits Elbow Extension NT NT 70 45 Wrist Flexion NT NT 50 20 Wrist Extension NT NT within normal limits 45 Supination NT NT within normal limits within normal limits Pronation NT NT Hand Dominance: right handed Right Left Finger Flexion fingers: full, fingers flex to palm and thumb flexes to palm fing ers: finger flexion to 4.5 cm from palm Finger Extension fingers: full fingers: full Opposition WFL 4.0 cm thump to tip of 5th Thumb Abduction WFL Active motion of approximately 10 degrees Wound: no open wounds, hand bruising with unknown cause The following screens were completed, through Intake Form, during this patient's initial evaluation: Suicide/Homicide, Falls Risk, Medication, Allergies, Social History, Medical His tory, Surgical History, Family History, Nutrition, Spiritual/Ethical and Abuse All components are documented in EPIC through "Therapy Intake Form", OP navigato r, or as otherwise needed in chart. Plan Frequency/Duration: Patient to be seen 3 per week for 4 Weeks. Patient Goal: be able to use hand Short Term Goals: Time Frame 2 weeks Paitent report pain 7/10 at worst point in day Increase wrist extension to 60 degrees Increase wrist flexion to 60 degrees AROM of finger flexion to touch palm Interface Engineer Goals: Time Frame: 4 weeks Patient report ability to complete bathing at [place] Patient report ability to complete dressing at SBA x 2 days Patient report pain 4/10 at worst Patient tolerate stone hand measurement and achieve 20# Treatment Conducted at Evaluation: Modalities for pain Treatment Plan: See care plan Marika Swann OT Occupational Therapist Signtawandaur e 1 :15 PM SAMPLE BOOK MAKER * Therapy Evaluation - Marika Clark, Occupational Therapist - 12/02/2012 3:45 PM SAMPLE BOOK MAKER [facility] Therapy Services [address] [place] [id number] , Occupational Therapy Plan of Care - Date: 12/02/2012 Oliverio Dalton Physician: Diagnosis: carpal tunnel, wrist arthritis, wrist/hand pain Treatment Diagnosis: Pain, decreased ROM Date Of Injury: 05/2012 Accident/Injury: No Frequency: 3x week for 4 weeks Treatments: Further Evaluation: Modalities: For: Pain and Edema: Ultrasound Electrical Stimulation Ice Heat Paraffin Procedures: Manual Therapy to effect changes in [...] m obility and muscle function Rehabilitation Potential: fair Goals: Increase strength to improve functional activities [...] am the provider whose NPI is listed. Physician's Signature Please return vi a fax to [phone] 4 :01 PM SAMPLE BOOK MAKER documented in this encounter Plan of Treatment Order Schedule Name Type Priority Associated Diag noses Ordered: 11/30/2012 AMB REFERRAL TO Outpatient Routine Carpal tunnel syndrome OCCUPATIONAL THERAPY Referral Ulnar nerve entra pment at wrist Wrist arthritis documented as of this encounter Visit Diagnoses Not on filedocumented in this encounter
--- OUTSIDE RECORDS SUMMARY | 2020-03-24 14:26 | XMS REPORT | Encounter Summary ---
Author Author [facility] Organization [facility] Address Unknown Phone Unavailable Care Team Providers Care Microsoft Office Instructor Name Role Phone Shahram Mccallum MD PCP Unavailable Encounter Details Care Team Description Date Type Department Karen Booker RN SN - OASIS RECERTIFICATION 12/05/2012 Home Care Visit [facility] [address] [place] [address] Social History Date Tobacco Use [...] Reading Time Taken Comments Vital Sign 112/66 12/05/2012 12:00 AM PUBLIC TRANSIT SPECIALIST Blood Pressure - - Pulse 36.2 C (97.2 F) 12/05/2012 12:00 AM PUBLIC TRANSIT SPECIALIST Temperature 20 12/05/2012 12:00 AM PUBLIC TRANSIT SPECIALIST Respiratory Rate - - Oxygen Saturation - - Inhaled Oxygen Concentration - - Weight - - Height - - Body Mass Index documented in this encounter Plan of Treatment Not on filedocumented as of this encounter Visit Diagnoses Not on filedocumented in this encounter Home Health Visit - Care Plan Visit Type - SN - OASIS RECERT Discipline - Chcf Status Goals Interventions Problem Descriptio Start Date n Resolved on 12/05/2012 - 3 problem interventions scheduled/documented in this visit Apprehension/Nervousness Feelings 12/05/2012 - COPD of dread Disciplines: and Chcf apprehensi on Resolved on 12/05/2012 - 3 problem interventions scheduled/documented in this visit Breathing Problems - COPD Inadequate 08/03/2012 Disciplines: breathing Chcf pattern Resolved on 12/05/2012 - 3 problem interventions scheduled/documented in this visit Failure to Comply With Behaviors 08/03/2012 Plan of Care of Disciplines: patient/ca Chcf regiver that do not follow the plan of care. Resolved on 12/05/2012 - 1 problem intervention scheduled/documented in this visit HH Continuum of Care Monitor/ed 08/03/2012 Disciplines: ucate/rein Chcf force medical appointmen t compliance . Identify and facilitate appropriat e discipline referrals. Resolved on 12/05/2012 - 2 problem interventions scheduled/documented in this visit Injury Prevention - At risk 08/03/2012 Hypertension for Disciplines: injury: Chcf related to internal factors resulting from complicati ons of hypertensi on Resolved on 12/05/2012 - 4 problem interventions scheduled/documented in this visit Learning/Teaching Needs - Learning 08/03/2012 Diabetes and Disciplines: teaching Chcf needs associated with diagnosis Resolved on 12/05/2012 - 3 problem interventions scheduled/documented in this visit Learning/Teaching Needs - Lack of 08/03/2012 Hypertension knowledge Disciplines: re: Chcf medical regimen related to controllin g/managing hypertensi on Resolved on 12/05/2012 - 4 problem interventions scheduled/documented in this visit Medications Management 08/03/2012 Disciplines: of home Chcf medication s Active - 1 problem intervention scheduled/documented in this visit Medications Management 12/05/2012 Disciplines: of home Chcf medication s Resolved on 12/05/2012 - 2 problem interventions scheduled/documented in this visit Problems with Activity - Decreased 08/03/2012 COPD tolerance Disciplines: to normal Chcf activities related to dyspnea and fatigue. Variance Visit Notes Intervention Associated Status Problem/Go al Skilled assessment Problem: Completed anxiety Apprehensi Description: on/Nervous Assess patient's level of ness - anxiety and identify COPD precipitating factors. Evaluate the effectiveness of the current treatment regimen and notify physician for the need for changes in the plan of care. Skilled assessment coping Problem: Completed Description: Apprehensi Assess the Patient on/Nervous learning and coping ness - abilities, developmental COPD level, support system, willingness to learn, barriers to communication, and willingness to participate in the prescribed treatment regimen. Assist Patient in developing new coping mechanisms as needed. Teach anxiety reduction Problem: Completed techniques Apprehensi Description: on/Nervous Assist Patient in ness - providing a calm COPD environment with minimal disturbances. Encourage family members and friends to visit in small numbers to reduce stimulation. Instruct Patient on the proper administration and usage of medications prescribed to reduce anxiety and dyspnea. Instruct breathing Problem: Completed techniques Breathing Description: Problems - Instruct Patient in COPD deep-breathing and coughing exercises, pursed-lip and abdominal breathing, and positioning for optimal breathing pattern. Monitor oxygen saturation Problem: Completed Description: Breathing Monitor and record O2 Problems - saturation when sitting. COPD Skilled assessment Problem: Completed breathing pattern Breathing Description: Problems - Assess lung sounds, COPD ventilatory pattern, rate, and depth. Identify aggravating/alleviating factors that worsen/enhance breathing pattern. Behavioral contract Problem: Completed Description: Failure to Develop a behavioral Comply contract with Patient With Plan outlining cedeno elements of of Care the plan of care, goals, rewards, and strategies to adhere to the treatment regime. Instruct treatment Problem: Completed regimen Failure to Description: Comply Instruct Patient on the With Plan prescribed treatment of Care regimen, risks/negative implications related to not complying with physician's orders, and strategies to assist with compliance. Skilled assessment Problem: Completed noncompliance Failure to Description: Comply Assess and evaluate With Plan possible causes for of Care non-compliance including: access issues, financial concerns, misconceptions/perception s. Assess ability/willingness to learn and coping mechanisms. Evaluate the effectiveness of teaching and progress towards goals every visit and modify the plan of care as needed. HH Review Medical Problem: Completed Appointments Description: Continuum Review medical of Care appointments with patient and caregiver. Reinforce importance of compliance with scheduled appointments. Instruct home safety Problem: Completed Description: Injury Instruct on safe use of Prevention assistive devices and - home modifcations to Hypertensi increase safety. Instruct on regarding prevention of orthostatic event: slow position changes, "dangling" prior to rising from bed, proper hydration per patient requirements. Skilled assessment risk Problem: Completed for injury Injury Description: Prevention Assess patient's sensory - perception, ability for Hypertensi ambulation and movement, on disorientation or changes in mentation. Assess vital signs for indications of potential risk for injury (i.e. orthostatic blood pressures as applicable). Assess the home environment for potential hazards. Monitor ongoing changes in Fall Risk Assessment. Instruct diet Problem: Completed Description: Learning/T Instruct on diabetic diet eaching and any fluid Needs - restrictions/requirements Diabetes . Instruct on how to keep a daily log of blood sugars. Instruct s/s of Problem: Completed hyper/hypoglycemia Learning/T Description: eaching Instruct patient on the Needs - s/s of hyper/hypoglycemia Diabetes events, prevention, and the actions to take to resolve the events. Skilled assessment Problem: Completed nutrition Learning/T Description: eaching Assess patient's current Needs - nutritional status, Diabetes factors that affect the patient's ability to purchase and prepare meals, food preferences, current eating practices, and current knowledge of intake requirements. Assist with meal planning and instruct on nutritional requirements. Teach diabetes Problem: Completed Description: Learning/T SN to teach eaching patient/caregiver [...] plan of care. Instruct daily log Problem: Completed Description: Learning/T SN to evaluate each eaching visit and notify Needs - physician of any abnormal Hypertensi readings. on Notify physician Problem: Completed Description: Learning/T Instruct Patient on signs eaching & symptoms of Needs - hypertension and when to Hypertensi call physician and on emergency management. Skilled assessment Problem: Completed knowledge deficit Learning/T Description: eaching Assess and evaluate Needs - Patient need for teaching Hypertensi related to COPD, on diabetes, signs and symptoms of infection, home safety and medications. Medication administration Problem: Completed Description: Medication Patient to take s medications from medication box set up by SN. Medication box Problem: Completed Description: Medication Fill Medication sr. merchandise planner s weekly. Skilled assessment Problem: Completed medications Medication Description: [...] the plan of care. Teach medication Problem: Completed management Medication Description: s Instruct Patient in medication administration, purpose, dosages, preparation, scheduling, side effect, food/drug interactions, and potential complications. Review medications each visit and update patient's copy of medication list as needed. Medication box Problem: Completed Description: Medication SN to fill medication box s every Wednesday. SN to instruct Patient and Caregiver and monitor for proper filling and administration. Skilled assessment Problem: Completed activity intolerance Problems Description: with Assess patient's response Activity - to activities and COPD aggravating/alleviating factors. Identify and establish guidelines and goals for activity. Establish baseline Fall Risk Assessment and monitor ongoing for changes. Teach energy conservation Problem: Completed Description: Problems Teach Patient energy with conservation techniques: Activity - Use of bedside commode COPD and energy-saving devices, rest/activity balance, encourage patient to ask for assistance with ADLs/IADLs. documented in this encounter Home Health Visit [...] predic tion rate of 90%. Instructed on fall risk and fall precau tions. Instructed on high risk medications inc luding side effects and how and when to report problems. Instructed on constipation care and con stipation as a side effect to pain medication. documented in this encounter
--- OUTSIDE RECORDS SUMMARY | 2020-03-24 14:26 | XMS REPORT | Encounter Summary ---
Author Author [facility] Organization [facility] Address Unknown Phone Unavailable Care Team Providers Care Mdm Developer Name Role Phone Shahram Mccallum MD PCP Unavailable Reason for Visit * Eval and Treat (Routine) Referred By Contact Referred To Contact Status Reason Specialty Diagnoses / Procedures Jona Doran, JONNATHAN [address] [place] [address] 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 Therapist and staff made a ssumption that cancellation was for both modalities. Patient not feeling well. Marika Swann, OT 8 :19 AM FUR PULLER documented in this encounter Plan of Treatment Not on filedocumented as of this encounter Visit Diagnoses Not on filedocumented in this encounter
--- OUTSIDE RECORDS SUMMARY | 2020-03-24 14:26 | XMS REPORT | Encounter Summary ---
Author Author [facility] Organization [facility] Address Unknown Phone Unavailable Care Team Providers Care Ordnance Artificer Helper Name Role Phone Shahram Mccallum MD PCP Unavailable Encounter Details Care Team Description Date Type Department Karen Booker RN SN - HOME VISIT [facility] [address] [place] [address] Social History Date Tobacco Use [...] Reading Time Taken Comments Vital Sign 122/70 12/13/2012 10:00 PM BUILDING MOVER Blood Pressure - - Pulse 36.3 C (97.4 F) 12/13/2012 10:00 PM BUILDING MOVER Temperature 18 12/13/2012 10:00 PM BUILDING MOVER Respiratory Rate - - Oxygen Saturation - [...] 12/05/2012 Plan of Care of Disciplines: patient/ca Penitentiary regiver that do not follow the plan [...] Health Visit - Actions and Narratives Patient has oxycodone 1/2 to 1 ordered every 6 hours as needed for pain. He continues to complain of pain at a [address] Xena man led about pain level and the following medication question. Patient went to Dr. Bailey and he gave him samples of celebrex 200mg to take daily. He went to dr emma prince and he prescribed naproxen 220mg two tablets daily. He is also taking acetaminophen 500mg four times a day. He is also on aspirin 81mg daily. I am very concerned about all of these medications because he is also on plavi x. Left message at Dr. Mccallum office to advise if it is okay for him to take all of this medication or not as I am filling his medication workforce planner. Patient is depressed and has made arran gements to start seeing Dr. Fajardo twice monthly instead of just monthly due to increased depressio n. documented in this encounter
--- OUTSIDE RECORDS SUMMARY | 2020-03-24 14:26 | XMS REPORT | Encounter Summary ---
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
--- OUTSIDE RECORDS SUMMARY | 2020-03-24 14:26 | XMS REPORT | Encounter Summary ---
Author Author [facility] Organization [facility] Address Unknown Phone Unavailable Care Team Providers Care Mentally Impaired Teacher Name Role Phone Shahram Mccallum MD PCP Unavailable Reason for Visit * Reason Comments Chest Pain left arm pain/brought in by ems Encounter Details Care Team Description Date Type Department Kentrell Severino MD NO ADDRESS ON FILE Chest wall pain 12/02/2012 Emergency [facility] Emergency Department [address] [id number] Social History Date Tobacco Use [...] Reading Time Taken Comments Vital Sign 117/70 12/02/2012 10:15 PM AUDIO VISUAL SECRETARY Blood Pressure 91 12/02/2012 10:15 PM AUDIO VISUAL SECRETARY Pulse 36.1 C (96.9 F) 12/02/2012 9:38 PM AUDIO VISUAL SECRETARY Temperature 12 12/02/2012 10:15 PM AUDIO VISUAL SECRETARY Respiratory Rate 98% 12/02/2012 10:15 PM AUDIO VISUAL SECRETARY Oxygen Saturation - - Inhaled Oxygen Concentration 81.6 kg (180 lb) 12/02/2012 9:38 PM AUDIO VISUAL SECRETARY Weight 167.6 cm (5' 6") 12/02/2012 9:38 PM AUDIO VISUAL SECRETARY Height 29.05 12/02/2012 9:38 PM AUDIO VISUAL SECRETARY Body Mass Index documented in this encounter Discharge Summaries * Willy Chaves - 12/05/2012 12:58 PM AUDIO VISUAL SECRETARY Electronically signed by Interface, Bong Aok Transcriptions Incoming at 3 12:58 PM AUDIO VISUAL SECRETARY documented in this encounter Discharge Instructions * Instructions* Kentrell Sevreino MD - 12/02/2012 Use the Percocet as needed for any additional pain. If a significant change in condition occurs see Dr or return to ER. documented in this encounter Medications at Time [...] as of this encounter Procedure Notes * Willy Chaves - 12/06/2012 1:34 PM AUDIO VISUAL SECRETARY Associated Order(s): EKG 12-LEAD Electronically signed by Sienna, Bong Aguilera Transcriptions Incoming at 1:34 PM AUDIO VISUAL SECRETARY * David Ferrer MD - 12/05/2012 11:47 AM AUDIO VISUAL SECRETARY Associated Order(s): EKG 12-LEAD [facility]. [address] [facility]. [place], [place] [address] EKG OLIVERIO TINSLEY OU [id number] 12/02/12 at 21:38 The rhythm is regular, sinus in origin with a rate of 96 beats per minute. Limb leads show low voltage. T waves are flattened across the limb leads and lateral chest leads. Compared with previous tracing dated November 24, 2012, voltages are more prominent in the limb leads previously. Diagnosis: 1) Sinus rhythm, rat e 96 beats per minute. 2) Low voltage limb leads. 3) Nonspecific T wave flatten ing. Dictated by Debbie. Dictated by: EKG DD 12/05/12 TD 12/05/12/MING EKG REPORT # [id number] ORDER # O VISUAL SECRETARY documented in this encounter ED Notes * Kentrell Severino MD - 12/02/2012 9:48 PM AUDIO VISUAL SECRETARY HISTORY OF PRESENT ILLNESS Oliverio Tinsley, a 62 y.o. male presents to the ED with a Chief Complaint of Ch est Pain Had a chest pain starting about 6 PM tonight across left chest. Took two NTG wit hout relief. The EMS crew was seeing his family member and when he mentioned to them his pain they said he should have it checked out. Has frequent chest and ar m pain. Patient is a 62 y.o. male presenting with chest pain. The history is provided by the patient. Chest Pain The chest pain began 1 - 2 hours ago. Chest pain occurs constantly. The chest pa in is gradually improving. Radiates to: hurts down his left arm and across his l eft chest. Pertinent negatives for primary symptoms include no fever, no shortne ss of breath, no abdominal pain, no nausea and no vomiting. Pertinent negatives for associated symptoms include no diaphoresis, no lower ext remity edema and no numbness. He tried nitroglycerin (didnt help) for the sympto ms. The initial location of pain was left deltopectoral. REVIEW OF SYSTEMS Review of Systems Constitutional: Negative for fever and diaphoresis. Respiratory: Negative for shortness of breath. Cardiovascular: Positive for chest pain. Gastrointestinal: Negative for nausea, vomiting and abdominal pain. Neurological: Negative for numbness. PAST MEDICAL HISTORY REVIEWED Past Medical History [...] performed by Mary Moore MD at [facility] OR Pr repair umbilical colleen,5+y/o,reduc 05/28/2012 HERNIA UMBILICAL REPAIR performed by Mary Moore MD at [facility] OR Family History Problem Relation Age of [...] Prescriptions for this Encounter Current Home Medications AEROBID IN Take 2 [...] FLUOXETINE (PROZAC) 20 MG ORAL TABLET Take 20 mg by mouth daily. IBUPROFEN (MOTRIN) 800 MG ORAL TABLET Take [...] 1 Tab by mouth daily with lunch. NITROGLYCERIN (NITROSTAT) 0.[address] [...] this Encounter PHYSICAL EXAM Initial Vitals BP 12/02/12 2138 121/75 mmHg Pulse 12/02/12 2138 99 Resp 12/02/12 2138 22 Temp 12/02/12 2138 96.9 F (36.1 C) Temp src 12/02/12 2138 Tympanic SpO2 12/02/12 2138 98 % Physical Exam Nursing note and vitals [...] orders placed during the hospital encounter of 12/02/12 (from the [facility] 24 hour(s)) COMPREHENSIVE METABOLIC PANEL Component Value Range GLUCOSE 192 (*) 70 - 100 mg/dl BUN 16.0 7 - 20 mg/dl CREATININE 0.81 0.67 - 1.17 mg/dl BUN/CREAT RATIO 19.8 10 - 20 GFR 102 >60 ml/min SODIUM 136 134 - 145 mmol/L POTASSIUM 4.3 3.3 - 4.8 mmol/L CHLORIDE 99 98 - 107 mmol/L CO2 28.4 22 - 31 mmol/L ANION GAP 13 4 - 20 CALCIUM 9.4 8.5 - 10.1 mg/dl ALBUMIN 3.1 (*) 3.4 - 5.0 g/dl TOTAL PROTEIN 7.6 6.4 - 8.2 g/dl GLOBULIN (CALC) 4.5 ALBUMIN/GLOBULIN RATIO 0.7 BILIRUBIN TOTAL 0.3 <1.1 mg/dl ALKALINE PHOSPHATASE 164 (*) 50 - 136 IU/L AST 23 10 - 40 IU/L ALT 34 25 - 70 IU/L CBC WITH DIFFERENTIAL Component Value Range WBC 9.29 3.0 - 10.4 x10E3 RBC 4.38 4.15 - 5.75 x10E6 HEMOGLOBIN 12.1 (*) 13.8 - 17.4 g/dL HEMATOCRIT 36.7 (*) 38.6 - 49.4 % MCV 83.8 79 - 100 fL MCH 27.6 (*) 28 - 34 pg MCHC 32.9 31 - 35 g/dL RDW 13.8 12.1 - 14.1 % PLATELETS 582 (*) 148 - 408 x10E3 MPV 8.1 7.4 - 10.6 fL NEUTROPHILS 70.1 43 - 73 % LYMPHOCYTES 21.0 19 - 47 % MONOCYTES 7.7 3 - 9 % EOSINOPHILS 1.1 0 - 6 % BASOPHILS 0.2 0 - 1.2 % NEUTROPHIL ABSOLUTE 6.51 1.3 - 7.6 x10E3 LYMPHOCYTE ABSOLUTE 1.94 0.6 - 4.9 x10E3 MONOCYTE ABSOLUTE 0.71 0.1 - 0.9 x10E3 EOSINOPHIL ABSOLUTE 0.10 0.0 - 0.2 x10E3 BASOPHILS ABSOLUTE 0.01 0 - 0.1 x10E3 MYOGLOBIN Component Value Range MYOGLOBIN, PLASMA 18 16 - 97 ng/ml TROPONIN Component Value Range TROPONIN I LESS THAN 0.04 0 - 0.4 ng/ml RADIOLOGY: XR CHEST PA OR AP ED Interpretation: No infiltrate EKG: no acute changes PROCEDURES Procedures REEVALUATION MEDICAL DECISION MAKING AND PLAN OF CARE . New Prescriptions for this Encounter Last vitals BP 121/75 | Pulse 99 | Temp(Src) 96.9 F (36.1 C) (Tympanic) | R barbara 22 | Ht 5' 6" (1.676 m) | Wt 81.647 kg | BMI 29.05 kg/m2 | SpO2 98% Coding Medications Administered During the ED Stay from 12/02/2012 2134 to 12/02/2012 2 218 Date/Time Order Dose Route Action 12/02/2012 2150 fentaNYL PF (SUBLIMAZE) 50 mcg/mL injection 50 mcg 50 mcg IV Gi kathe CLINICAL IMPRESSION Final diagnoses: Chest wall pain CASE DISCUSSED DISPOSITION, EDUCATION AND MEDICATION RECONCILIATION Medications reconciled. See after visit summary for patient education on discha rged patients. Will give Fentanyl 50 mcg to eliminate pain. Sounds more like chest wall pain th an angina at this point. Will check enzymes. Pain is completely relieved now. Neg initial enyzmes about four hours from onset . Seems more likely chest wall pain. Ok to go home with family. Use the Percocet as needed for any additional pain. If a significant change in condition occurs see Dr or return to ER. O VISUAL SECRETARY * Nayely Duff RN - 12/02/2012 9:46 PM AUDIO VISUAL SECRETARY Pt states left arm and chest pain. Pt states wrist has been bothering him for s everal months and pain starts at wrist and moves up into chest. Pt states 2-3 e pisodes per day. Pt did take 2 nitro with no relief. O VISUAL SECRETARY * Kristina Keller RN - 12/02/2012 9:44 [address] AUDIO VISUAL SECRETARY Dr. Severino to room to assess pt. O VISUAL SECRETARY documented in this encounter Plan of Treatment Not on filedocumented as of this encounter Procedures Comments Procedure Name Priority Date/Time Associated Diag nosis EKG 12-LEAD Stat 12/06/2012 1:57 PM AUDIO VISUAL SECRETARY CARDIAC ENZYMES Stat 12/03/2012 9:50 AM AUDIO VISUAL SECRETARY TROPONIN Stat 12/03/2012 9:50 AM AUDIO VISUAL SECRETARY CARDIAC INTERPRETATION (6 Stat 12/03/2012 HR) 3:50 AM AUDIO VISUAL SECRETARY TROPONIN Stat 12/03/2012 3:50 AM AUDIO VISUAL SECRETARY CARDIAC INTERPRETATION (3 Stat 12/03/2012 HR) 12:50 AM AUDIO VISUAL SECRETARY TROPONIN Stat 12/03/2012 12:50 AM AUDIO VISUAL SECRETARY MYOGLOBIN Stat 12/03/2012 12:50 AM AUDIO VISUAL SECRETARY XR CHEST PA OR AP 1 VW Stat 12/02/2012 10:08 PM AUDIO VISUAL SECRETARY CBC WITH DIFFERENTIAL Stat 12/02/2012 9:43 PM AUDIO VISUAL SECRETARY TROPONIN Stat 12/02/2012 9:43 PM AUDIO VISUAL SECRETARY MYOGLOBIN Stat 12/02/2012 9:43 PM AUDIO VISUAL SECRETARY COMPREHENSIVE METABOLIC Stat 12/02/2012 PANEL 9:43 PM AUDIO VISUAL SECRETARY documented in this encounter Results * EKG 12-LEAD (12/06/2012 1:57 PM AUDIO VISUAL SECRETARY) Narrative Performed At This result has an attachment that is n ot available. Transcriptions David Bernard MD - 12/05/2012 11:47 AM AUDIO VISUAL SECRETARY [address] [place], [place] [address] EKG OLIVERIO TINSLEY OU [id number] 12/02/12 at 21:38 The rhythm is regular, sinus in origin with a rate of 96 beats per minute. Limb leads show low voltage. T waves are flattened across the limb leads and lateral chest leads. Compared with previous tracing dated November 24, 2012, voltages are more prominent in the limb leads previously. Diagnosis: 1) Sinus rhythm, rate 96 beats per minute. 2) Low voltage limb leads. 3) Nonspecific T wave flattening. Dictated by Debbie. Dictated by: EKG DD 12/05/12 TD 12/05/12/MING EKG REPORT # [id number] ORDER # 12/06/2012 1:34 PM AUDIO VISUAL SECRETARY * TROPONIN (12/03/2012 9:50 AM AUDIO VISUAL SECRETARY) TROPONIN I Test not performedComment: 0 - 0.4 ng/ml [facility] ACCT#[id number], ,,,, SERVICES - [place] Specimen Narrative Performed At CARDIAC TROP-12HR TROP-12 HR from 0125:[id number]. [facility] LABORATORY CARDIAC Final: FINAL from 0125:[id number]. [facility] Performing Organization Address City/State/Zipconj Ph one Number [facility] LABORATORY SERVICES CLIA# [id number] [place], [place] [address] [address] LABORATORY SERVICES CLIA# [id number] [place] [address] - [address] * CARDIAC ENZYMES (12/03/2012 9:50 AM AUDIO VISUAL SECRETARY) Pathologist [facility] INTERPRETATION See below. [facility] Comment: LABORATORY INTERPRETATION - 12/03/12 1206 [facility] Normal initial cardiac marker [place] results. Linda Elise. [facility] ACCT#[id number], ,,,, Specimen Blood specimen (specimen) Narrative Performed At CARDIAC TROP-12HR TROP-12 HR from 0125:[id number]. [facility] LABORATORY CARDIAC Final: FINAL from 0125:[id number]. SERVICES - [place] Performing Organization Address [facility] one [facility] SERVICES CLIA# [id number] GAB [place] 667 - [place] [address] [place] [address] LABORATORY SERVICES CLIA# [id number] [place] [address] [facility] FAYE [address] [place] [address] * CARDIAC INTERPRETATION (6 HR) (12/03/2012 3:50 AM AUDIO VISUAL SECRETARY) INTERPRETATION Test not performedComment: [facility] ACCT#[id number], ,,,, SERVICES - [place] Specimen Narrative Performed At CARDIAC TROP-6HR TROP-6 HR from 0125:[id number]. [facility] LABORATORY CARDIAC Interim: CAR6 from 0125:[id number]. SERVICES - [place] Performing Organization Address [facility] one [place] [facility] LABORATORY SERVICES CLIA# [id number] GAB JEFFERSON [facility] [phone] - [place] F[place] [address] [place] [place] [address] LABORATORY SERVICES CLIA# [id number] [place] [address] * TROPONIN (12/03/2012 3:50 AM AUDIO VISUAL SECRETARY) TROPONIN I Test not performedComment: 0 - 0.4 ng/ml [facility] ACCT#[id number], ,,,, SERVICES - [place] Specimen Narrative Performed At CARDIAC TROP-6HR TROP-6 HR from 0125:[id number]. [facility] LABORATORY CARDIAC Interim: CAR6 from 0125:[id number]. SERVICES - [place] Performing Organization Address [facility] Ph one [facility] LABORATORY SERVICES CLIA# [id number] GAB JEFFERSON [facility] [phone] - [place] [address] [place] [place] [address] LABORATORY SERVICES CLIA# [id number] [place] [address] * CARDIAC INTERPRETATION (3 HR) (12/03/2012 12:50 AM AUDIO VISUAL SECRETARY) INTERPRETATION Test not performedComment: [place] LABORATORY ACCT#[id number], ,,,, SERVICES [facility] Specimen Narrative Performed At CARDIAC NYLA-3HR NYLA-3 HR from 0125:[id number]. [facility] CARDIAC TROP-3HR TROP-3 HR from 0125:[id number]. [facility] CARDIAC Interim: CAR3 from 0125:[id number]. FAYE Performing Organization Address [facility] LABORATORY SERVICES CLIA# [id number] [place] [address] LABORATORY SERVICES CLIA# [id number] [place], [place] [address] [place] [address] * TROPONIN (12/03/2012 12:50 AM AUDIO VISUAL SECRETARY) TROPONIN I Test not performedComment: 0 - 0.4 ng/ml [place] LABORATORY ACCT#[id number], ,,,, SERVICES [facility] Specimen Narrative Performed At CARDIAC NYLA-3HR NYLA-3 HR from 0125:[id number]. [facility] CARDIAC TROP-3HR TROP-3 HR from 012:[id number]. [facility] CARDIAC Interim: CAR3 from 0125:[id number]. FAYE Performing Organization Address [facility] LABORATORY SERVICES CLIA# [id number] [place] [address] LABORATORY SERVICES CLIA# [id number] [place], [place] [address] [place] [address] * MYOGLOBIN (12/03/2012 12:50 AM AUDIO VISUAL SECRETARY) MYOGLOBIN, Test not performed 16 - 97 ng/ml [facility] PLASMA Comment: LABORATORY DISMISSED. [facility] ACCT#[id number], ,,,, Specimen Narrative Performed At CARDIAC NYLA-3HR NYLA-3 HR from 0125:[id number]. [facility] CARDIAC TROP-3HR TROP-3 HR from 0125:[id number]. [facility] CARDIAC Interim: CAR3 from 0125:[id number]. FAYE Performing Organization Address [facility] LABORATORY SERVICES CLIA# [id number] [place] [address] LABORATORY SERVICES CLIA# [id number] [place] [address] * XR CHEST PA OR AP (12/02/2012 10:08 PM AUDIO VISUAL SECRETARY) Specimen Impressions Performed At IMPRESSION: No acute abnormality seen in the chest. INTERFACE SYSTEM Narrative Performed At Portable chest INTERFACE SYSTEM INDICATION: Cough Cardiac size pulmonary vessels and medi astinal structures appear within normal limits. Lungs appear rocky r of acute infiltrates and there are no pleural effusions or pneum othoraces. Changes of COPD with prior midline sternotomy noted. No sign ificant change identified compared with 08/30/2012. Procedure Note Interface, [place] [facility] Aok Incoming Radiology Results - 12/05/2012 8:50 AM AUDIO VISUAL SECRETARY Portable chest INDICATION: Cough Cardiac size pulmonary vessels and mediastinal structures appear within normal limits. Lungs appear clear of acute infiltrates and there are no pleural effusions or pneumothoraces. Changes of COPD with prior midline sternotomy noted. No significant change identified compared with 08/30/2012. IMPRESSION IMPRESSION: No acute abnormality seen in the chest. Performing Organization Address [facility] INTERFACE SYSTEM INTERFACE SYSTEM Refer to clinic/hospital department * TROPONIN (12/02/2012 9:43 PM AUDIO VISUAL SECRETARY) TROPONIN I LESS THAN 0.04Comment: 0 - 0.4 ng/ml [facility] LABORATORY ACCT#[id number], ,,,, SERVICES - [place] Specimen Narrative Performed At CARDIAC NYLA-0HR NYLA-0 HR from 0125:[id number]. [facility] L ABORATORY CARDIAC TROP-0HR TROP-0 HR from 0125:[id number]. SERVI NICK - [place] Performing Organization Address [facility] LABORATORY SERVICES CLIA# [id number] [place] [address] LABORATORY SERVICES CLIA# [id number] [place] [address] * MYOGLOBIN (12/02/2012 9:43 PM AUDIO VISUAL SECRETARY) MYOGLOBIN, 18Comment: [facility] LYNN 16 - 97 ng/ml [facility] PLASMA ACCT#[id number], ,,,, LABORATORY SERVICES - [place] Specimen Narrative Performed At CARDIAC NYLA-0HR NYLA-0 HR from 0125:[id number]. [facility] CARDIAC TROP-0HR TROP-0 HR from 0125:[id number]. SERVI NICK - [place] Performing Organization Address City/State/[facility]code Ph one Number [facility] LABORATORY SERVICES CLIA# [id number] [place] [address] - [place] [address] [place] [place] [address] LABORATORY SERVICES CLIA# [id number] [place] [address] - [place] [address] [place] [address] * CBC WITH DIFFERENTIAL (12/02/2012 9:43 PM AUDIO VISUAL SECRETARY) WBC 9.29 3.0 - 10.4 x10E3 [facility] LABORATORY SERVICES - [place] RBC 4.38 4.15 - 5.75 x10E6 [facility] LABORATORY SERVICES - [place] HEMOGLOBIN 12.1 (L) 13.8 - 17.4 g/dL [facility] LABORATORY SERVICES - [place] HEMATOCRIT 36.7 (L) 38.6 - 49.4 % [facility] LABORATORY SERVICES - [place] MCV 83.8 79 - 100 fL [facility] LABORATORY SERVICES - [place] MCH 27.6 (L) 28 - 34 pg [facility] LABORATORY SERVICES - [place] MCHC 32.9 31 - 35 g/dL [facility] LABORATORY SERVICES - [place] RDW 13.8 12.1 - 14.1 % [facility] LABORATORY SERVICES - [place] PLATELETS 582 (H) 148 - 408 x10E3 [facility] LABORATORY SERVICES - [place] MPV 8.1 7.4 - 10.6 fL [facility] LABORATORY SERVICES - [place] NEUTROPHILS 70.1 43 - 73 % [facility] LABORATORY SERVICES - [place] LYMPHOCYTES 21.0 19 - 47 % [facility] LABORATORY SERVICES - [place] MONOCYTES 7.7 3 - 9 % [facility] LABORATORY SERVICES - [place] EOSINOPHILS 1.1 0 - 6 % [facility] LABORATORY SERVICES - [place] BASOPHILS 0.2 0 - 1.2 % [facility] LABORATORY SERVICES - [place] NEUTROPHIL 6.51 1.3 - 7.6 x10E3 [facility] ABSOLUTE LABORATORY SERVICES - [place] LYMPHOCYTE 1.94 0.6 - 4.9 x10E3 [facility] SERVICES - [place] MONOCYTE 0.71 0.1 - 0.9 x10E3 [facility] LABORATORY SERVICES - [place] EOSINOPHIL 0.10 0.0 - 0.2 x10E3 [facility] LAB[facility] SERVICES - [place] BASOPHILS 0.01Comment: [facility]-GAB LYNN 0 - 0.1 x10E3 [facility] ABSOLUTE ACCT#[id number], ,,,, LABORATORY SERVICES - [place] Specimen Blood specimen (specimen) Performing Organization Address City/State/Zipcode Ph one Number [facility] LABORATORY SERVICES CLIA# [id number] [place] [address] - [place] [address] [place] [place] [address] LABORATORY SERVICES CLIA# [id number] [place] [address] - [address] * COMPREHENSIVE METABOLIC PANEL (12/02/2012 9:43 PM AUDIO VISUAL SECRETARY) GLUCOSE 192 (H) 70 - 100 mg/dl [facility] LABORATORY SERVICES - [place] BUN 16.0 7 - 20 mg/dl [facility] LABORATORY SERVICES - [place] CREATININE 0.81 0.67 - 1.17 mg/dl [facility] LABORATORY SERVICES - [place] BUN/CREAT RATIO 19.8 10 - 20 [facility] LABORATORY SERVICES - [place] GFR 102 >60 ml/min [facility] LABORATORY SERVICES - [place] SODIUM 136 134 - 145 mmol/L [facility] LABORATORY SERVICES - [place] POTASSIUM 4.3 3.3 - 4.8 mmol/L [facility] LABORATORY SERVICES - [place] CHLORIDE 99 98 - 107 mmol/L [facility] LABORATORY SERVICES - [place] CO2 28.4 22 - 31 mmol/L [facility] - [place] ANION GAP 13 4 - 20 [facility] LABORATORY SERVICES - [place] CALCIUM 9.4 8.5 - 10.1 mg/dl [facility] LABORATORY SERVICES - [place] ALBUMIN 3.1 (L) 3.4 - 5.0 g/dl [facility] LABORATORY SERVICES - [place] TOTAL PROTEIN 7.6 6.4 - 8.2 g/dl [facility] LABORATORY SERVICES - [place] GLOBULIN (CALC) 4.5 [facility] SERVICES - [place] ALBUMIN/GLOBULI 0.7 [facility] LABORATORY SERVICES - [place] BILIRUBIN TOTAL 0.3 <1.1 mg/dl [facility] LABORATORY SERVICES - [place] ALKALINE 164 (H) 50 - 136 IU/L [facility] PHOSPHATASE LABORATORY SERVICES - [place] AST 23 10 - 40 IU/L [facility] LABORATORY SERVICES - [place] ALT 34Comment: GAB JUAN 25 - 70 IU/L M [facility] ACCT#[id number], ,,,, LABORATORY SERVICES - [place] Specimen Blood specimen (specimen) Performing Organization Address City/State/Zipconj Ph one Number [facility] LABORATORY SERVICES CLIA# [id number] [place] [address] - [place] [address] [place] [place] [address] LABORATORY SERVICES CLIA# [id number] [place] [address] - [address] documented in this encounter Visit Diagnoses Diagnosis Chest wall pain Painful respiration documented in this encounter Administered Medications Action Date Dose Rate Site Medication Order MAR Action 12/02/2012 9:50 PM AUDIO VISUAL SECRETARY 50 mcg fentaNYL PF (SUBLIMAZE) 50 mcg/mL Given injection 50 mcg 50 mcg, IV, ONE TIME ONLY, 1 dose, 12/02/12 at 2200, Routine documented in this encounter
--- OUTSIDE RECORDS SUMMARY | 2020-03-24 14:26 | XMS REPORT | Encounter Summary ---
Author Author [facility] Organization [facility] Address Unknown Phone Unavailable Care Team Providers Care Tarp Repairer Name Role Phone Shahram Mccallum MD PCP Unavailable Reason for Referral * Eval and Treat (Routine) Referred By Contact Referred To Contact Status Reason Specialty Diagnoses / Procedures Jose Antonio MD [address] [place] [address] [facility] [address] [place] [address] Closed Physical Therapy Diagnoses Arthritis of wrist, left Reason for Visit * Reason Comments Arm pain Lt Arm Pain-Possible Carpa l Tunnel/Consult Encounter Details Care Team Description Date Type Department Jose Antonio MD [address] [place] [address] Arthritis of wrist, left (Primary Dx); Carpal tunnel syndrome; Ulnar nerve entrapment at wrist 11/30/2012 Office Visit [facility] [place] [address] [place] [address] Social History Date Tobacco Use [...] Oxygen Saturation - - Inhaled Oxygen Concentration 88.6 kg (195 lb 6.6 oz) 11/30/2012 9:43 AM CARDIAC CATH RN Weight 167.6 cm (5' 6") 11/30/2012 9:43 AM CARDIAC CATH RN Height 31.54 11/30/2012 9:43 AM CARDIAC CATH RN Body Mass Index documented in this encounter Progress Notes * Jose Antonio MD - 11/30/2012 9:50 AM CARDIAC CATH RN S; left hand all five digits involved chief complaint of pain. he also has kenisha e numbness and tingling. he has had these symptoms about 6 months. he has been wearing a splint, dr mccallum and emg, ncs has been obtained. the thumb, index and long fingers are worse the ring and little fingers. he use s a walker. he also says he has pain in his left forearm, wrist and has had some swelling in his left wrist and fingers, long finger especially. O: he has a positive tinel median and ulnar nerves left wrist. he has a positi ve tinel cubital tunnel left arm as well. he has LOM left wrist, some swelling left wrist and a little into his digits left hand. there is no warmth or erythe ma left wrist. he has no effusion left elbow. his integument and n-v intact. question of atrophy thenar and hypothenar muscles tested. he has good elbow mot ion. guarding of his left wrist due to the pain. good color and good sensation digits left hand today. xrays left wrist [id number] show minimal early OA changes, essentially normal for ag e. A: left wrist pain and swelling, clinical cts, uts and question of cubital tunn el. arthritis flare left wrist P: the natural history of the problem was reviewed at length with the patient a nd options in treatment were discussed. questions and concerns answered. he has lost 26 pounds in the last month. his exam left wrist is out of proportion for just cts, uts. this is more in devendra e with left wrist arthritic flare. he is given samples of celebrex today to joaquín smith to help calm the left wrist down. we do not have the emg results today. we will rx PT for therapy left wrist. ne ed to get it calmed down before addressing any cts. continue the splint. take the celebrex and recheck in about 3 weeks. hopefully have the emg results then. he is given a total 18 capsules of celebrex 200 mg today. PT is ordered for left wrist x3/wk for 3 weeks. motion modalities prn. as noted today dr antonio I have reviewed the above and examined the patient with Solomon and agree IAC CATH RN documented in this encounter Plan of Treatment Order Schedule Name Type Priority Associated Diag noses Ordered: 11/30/2012 AMB REFERRAL TO PHYSICAL Outpatient Routine Arthr itis of wrist, left THERAPY Referral documented as of this encounter Visit Diagnoses Diagnosis Arthritis of wrist, left - Primary Unspecified arthropathy, forearm Carpal tunnel syndrome Ulnar nerve entrapment at wrist Lesion of ulnar nerve documented in this encounter
--- OUTSIDE RECORDS SUMMARY | 2020-03-24 14:26 | XMS REPORT | Encounter Summary ---
Author Author [facility] Organization [facility] Address Unknown Phone Unavailable Care Team Providers Care Transportation Maintenance Specialist Name Role Phone Sahhram Mccallum MD PCP Unavailable Reason for Visit * Reason Comments Medication Refill Encounter Details Care Team Description Date Type Department Shahram Mccallum MD NO ADDRESS ON FILE 12/05/2012 Refill [facility] Primar y Care [address] [phone] Social History Date Tobacco Use Types Packs/Day [...]
--- OUTSIDE RECORDS SUMMARY | 2020-03-24 14:27 | XMS REPORT | Encounter Summary ---
Author Author [facility] Organization [facility] Address Unknown Phone Unavailable Care Team Providers Care Chucker Name Role Phone Shahram Mccallum MD PCP Unavailable Reason for Visit * Reason Comments Arm pain Encounter Details Care Team Description Date Type Department Zeke Abarca MD [address] [place] [address] Left wrist pain; Left forearm pain 11/16/2012 Emergency [facility] - Emergency Department [place] 11/17/[address] [phone] Social History Date Tobacco Use Types Packs/Day [...] Signs Reading Time Taken Comments Vital Sign 129/93 11/16/2012 9:55 PM SELLING MANAGER Blood Pressure 118 11/16/2012 9:55 PM SELLING MANAGER Pulse 36.8 C (98.2 F) 11/16/2012 9:55 PM SELLING MANAGER Temperature 18 11/16/2012 9:55 PM SELLING MANAGER Respiratory Rate 97% 11/16/2012 9:55 PM SELLING MANAGER Oxygen Saturation - - Inhaled Oxygen Concentration 89.4 kg (197 lb) 11/16/2012 9:55 PM SELLING MANAGER Weight 167.6 cm (5' 6") 11/16/2012 9:55 PM SELLING MANAGER Height 31.8 11/16/2012 9:55 PM SELLING MANAGER Body Mass Index documented in this encounter Discharge Instructions * Patient Instructions* Scanning, Aok - 11/17/2012 1:32 PM SELLING MANAGER Electronically signed by Interface, Bong Aok Transcriptions Incoming at 3 1:32 PM SELLING MANAGER * Additional Instructions* Zeke Abarca MD - 11/16/2012 Try taking the percocet for pain but you need to work with Dr. Mccallum on contro lling your pain THANK YOU FOR CHOOSING [facility]! Our goal [...] attachments cannot be sent through Care Everywhere.* ARM PAIN: AFTER YOUR VISIT (IRISH) * CARPAL TUNNEL SYNDROME: AFTER YOUR VISIT (IRISH) documented in this encounter Medications at Time [...] needed for Shortness of Breath or Wheezing. 11/02/2012 03/14/2013 phenytoin sodium extended 200mg am [...] ED Notes * Zeke Abarca MD - 11/16/2012 10:01 PM SELLING MANAGER HISTORY OF PRESENT ILLNESS Oliverio Dread Cook, a 62 y.o. male presents to the ED with a Chief Complaint of Ar m pain HPI Comments: The only thing that has been helping his pain is Percocet but he r eports that when he was seen today he did not get a refill of medicine and he is now out of Percocet and pain was out of control. From looking at the note and p er the caregiver he was to try 1/2 tablet percocet with Tylenol. He states he tr ied that but it did not help. He complains of continued persistent wrist and for earm pain on left side. Patient is a 62 y.o. male presenting with arm pain. The history is provided by t he patient, a caregiver and medical records. Arm pain This is a chronic problem. The current episode started more than 1 week ago. The problem occurs constantly. The problem has been gradually worsening. The pain is present in the left wrist and left arm. The quality of the pain is described as aching, sharp and constant. The pain is severe. Associated symptoms include st iffness. Pertinent negatives include no numbness and no tingling. The symptoms a re aggravated by activity. He has tried OTC pain medications, arthritis medicati ons, OTC ointments and rest for the symptoms. The treatment provided no relief. There has been no history of extremity trauma. REVIEW OF SYSTEMS Review of Systems Constitutional: Negative for fever and chills. HENT: Negative for trouble swallowing and neck pain. Respiratory: Negative for shortness of breath. Cardiovascular: Negative for chest pain. Gastrointestinal: Negative for abdominal pain. Musculoskeletal: Positive for myalgias (left wrist and forearm), arthralgias (le ft wrist and forearm) and stiffness. Skin: Negative for rash. Neurological: Negative for tingling and numbness. Psychiatric/Behavioral: Negative for confusion and decreased concentration. The patient is nervous/anxious. PAST MEDICAL HISTORY REVIEWED Past Medical [...] performed by BEULAH ZHOU at [facility] OR Hx hernia repair 1989 And age 4 Hx lap cholecystectomy 05/17/07 Hx coronary artery bypass graft Hx heart catheterization 04/10 With angioplasty, 2 stents Pr lap,appendectomy 05/28/2012 APPENDECTOMY LAPAROSCOPIC performed by Beulah Zhou MD at [facility] OR Pr repair umbilical colleen,4+y/o,reduc 05/28/2012 HERNIA UMBILICAL REPAIR performed by Beulah Zhou MD at [facility] OR Family History Problem Relation Age of [...] Patient Active Problem List Diagnoses Date Noted Osteoarthritis of right knee 10/24/2012 LFT elevation [...] minutes as needed for Chest Pain. ONDANSETRON (ZOFRAN) 4 MG ORAL TAB Take 1 Tab by mouth every 6 hours as need ed for Nausea/Emesis. OXYCODONE-ACETAMINOPHEN (PERCOCET) 5-325 MG ORAL TABLET Take 1-2 Tabs by henrik th every 6 hours as needed for Pain, Moderate. PHENYTOIN SODIUM EXTENDED RELEASE (DILANTIN) 100 MG [...] this Encounter PHYSICAL EXAM Initial Vitals BP 11/16/12 2155 129/93 mmHg Pulse 11/16/12 2155 118 Resp 11/16/12 2155 18 Temp 11/16/12 2155 98.2 F (36.8 C) Temp src 11/16/12 2155 Oral SpO2 11/16/12 2155 97 % Physical Exam Nursing note and vitals reviewed. Constitutional: He is oriented to person, place, and time. He appears well-devel oped and well-nourished. No distress. Cardiovascular: Intact distal pulses. Neurological: He is alert and oriented to person, place, and time. Skin: Skin is warm and dry. He is not diaphoretic. Psychiatric: His mood appears anxious. DIAGNOSTICS LAB: RADIOLOGY: EKG: PROCEDURES Procedures REEVALUATION MEDICAL DECISION MAKING AND PLAN OF CARE . New Prescriptions for this Encounter Last vitals BP 129/93 | Pulse 118 | Temp(Src) 98.2 F (36.8 C) (Oral) | Resp 18 | Ht 5' 6" (1.676 m) | Wt 89.359 kg | BMI 31.80 kg/m2 | SpO2 97% MDM Coding Reviewed: vitals, nursing note and previous chart Interpretation: SP02 Since pt was just seen will try Percocet, Fentanyl and Norflex here in ER. Will discharge with 6 pack of percocet to get him through tonight. Instructed him modesto t I did not want to go against Dr. Mccallum wishes and prescribe more of the perc ocet for home but would send the 6 pack for tonight and he could check with Dr. Mccallum in the morning as to how to control his pain better. Medications Administered During the ED Stay from 11/16/2012 2148 to 11/16/2012 2 217 Date/Time Order Dose Route Action 11/16/20122206 fentaNYL PF (SUBLIMAZE) 50 mcg/mL injection 100 mcg 100 mcg IM Given 11/16/20122207 orphenadrine citrate (NORFLEX) 30 mg/mL injection 60 mg 60 mg I M Given 11/16/20122206 oxyCODONE-acetaminophen (PERCOCET) 5-325 mg per tablet 2 Tab 2 Tab Oral Given CLINICAL IMPRESSION Encounter Diagnoses Name Primary? Left wrist pain Left forearm pain CASE DISCUSSED PATIENT COUNSELING Diagnostics reviewed and questions answered. Diagnosis, treatment options and p brianna of care discussed with understanding verbalized. DISPOSITION, EDUCATION AND MEDICATION RECONCILIATION Medications reconciled. See after visit summary for patient education on discha rged patients. ING MANAGER * Nayely Duff RN - 11/16/2012 10:00 PM SELLING MANAGER Pt saw Dr Mccallum today and was instructed he would not give him any more pecoce t due to pt taking to many and having gi upset. Pt in with left arm and shoulde r pain, states he has only taken tylenol today. ING MANAGER documented in this encounter Plan of Treatment Not on filedocumented as of this encounter Visit Diagnoses Diagnosis Left wrist pain Pain in joint, forearm Left forearm pain Pain in limb documented in this encounter Administered Medications Action Date Dose Rate Site Medication Order MAR Action 11/16/2012 10:07 PM SELLING MANAGER 100 mcg Deltoid, Right fentaNYL PF (SUBLIMAZE) 50 mcg/mL Given injection 100 mcg 100 mcg, IM, ONE TIME ONLY, 1 dose, 11/16/12 at 2215, Routine 11/16/2012 10:08 PM SELLING MANAGER 60 mg Deltoid, Left orphenadrine citrate (NORFLEX) 30 mg/mL Given injection 60 mg 60 mg, IM, ONE TIME ONLY, 1 dose, 11/16/12 at 2215, Routine 11/16/2012 10:07 PM SELLING MANAGER 2 Tablets oxyCODONE-acetaminophen (PERCOCET) 5-325 Given mg per tablet 2 Tab 2 Tablet, Oral, ONE TIME ONLY, 1 dose, 11/16/12 at 2215, Routine documented in this encounter
--- OUTSIDE RECORDS SUMMARY | 2020-03-24 14:27 | XMS REPORT | Encounter Summary ---
Author Author [facility] Organization [facility] Address Unknown Phone Unavailable Care Team Providers Care Straight Knife Machine Cutter Name Role Phone Shahram Mccallum MD PCP Unavailable Reason for Visit * Reason Comments Joint Pain wrist Encounter Details Care Team Description Date Type Department Rosalinda Bal Joint Pain (wrist) 11/24/2012 Telephone [facility] [address] [place] [address] Social History Date Tobacco Use [...] * Telephone Encounter - Rosalinda Bal - 11/24/2012 12:14 PM UNIT REACTOR OPERATOR Per Dr Mccallum can not give any more pain medication. Ibrahim splint day and night . Keep appointment with Dr Bailey. REACTOR OPERATOR documented in this encounter Plan of Treatment Not on filedocumented as of this encounter Visit Diagnoses Not on filedocumented in this encounter
--- OUTSIDE RECORDS SUMMARY | 2020-03-24 14:27 | XMS REPORT | Encounter Summary ---
Author Author [facility] Organization [facility] Address Unknown Phone Unavailable Care Team Providers Care Sleeve Setter Safety Stitch Name Role Phone Shahram Mccallum MD PCP Unavailable Reason for Visit * Auth/Cert Referred By Contact Referred To Contact Status Reason Specialty Diagnoses / Procedures [facility] Home Health [facility] [address] [place] [address] Closed Home Health Encounter Details Care Team Description Date Type Department Karen Booker RN SN - HOME VISIT 11/22/2012 Home Care Visit [facility] [address] [place] [address] Social History Date Tobacco Use [...] 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 Active - 1 problem intervention scheduled/documented in this visit Continuum of Care Monitor/ed 08/03/2012 Disciplines: luis e/giorgi Mcc force medical appointmen t compliance . Identify and facilitate appropriat e discipline referrals. Active - 2 problem interventions scheduled/documented in this visit Injury Prevention - At risk 08/03/2012 Hypertension for Disciplines: injury: Mcc related to internal factors resulting from complicati ons of hypertensi on Active - 4 problem interventions scheduled/documented in this visit Learning/Teaching Needs - Learning 08/03/2012 Diabetes and Disciplines: teaching Mcc needs associated with diagnosis Active - 3 problem interventions scheduled/documented in this visit Learning/Teaching Needs - Lack of 08/03/2012 Hypertension knowledge Disciplines: re: Mcc medical regimen related to controllin g/managing hypertensi on Active - 4 problem interventions scheduled/documented in this visit Medications Management 08/03/2012 Disciplines: of home Mcc medication s Active - 2 problem interventions scheduled/documented in this visit Problems with Activity - Decreased 08/03/2012 COPD tolerance Disciplines: to normal Mcc activities related to dyspnea and fatigue. Variance [...] needed. HH Review Medical Problem: Completed Appointments HH Description: [facility] Review medical of Care appointments [...] list as needed. Skilled assessment Problem: Completed activity intolerance Problems [...]
--- OUTSIDE RECORDS SUMMARY | 2020-03-24 14:27 | XMS REPORT | Encounter Summary ---
Author Author [facility] Organization [facility] Address Unknown Phone Unavailable Care Team Providers Care Central Supply Assistant Name Role Phone Shahram Mccallum MD PCP Unavailable Reason for Referral * Outpatient Services (Routine) Referred By Contact Referred To Contact Status Reason Specialty Diagnoses / Procedures Shahram Mccallum MD NO ADDRESS ON FILE Closed Diagnoses Back pain P rocedures MRI LUMBAR WO CONTRAST Encounter Details Care Team Description Date Type Department Rosalinda Bal Back pain (Primary Dx) 11/18/2012 Orders Only [facility] Primar y Care [place] [address] [place] [phone] Social History Date Tobacco Use Types Packs/Day [...] filedocumented as of this encounter Results * MRI LUMBAR WO CONTRAST (11/23/2012 10:32 AM ELECTRIC FURNACE OPERATOR) Specimen Impressions Performed At IMPRESSION: Facet degenerative changes otherwise norm al MRI of the INTERFACE SYSTEM lumbar spine. Narrative Performed At MR lumbar spine INTERFACE SYSTEM HISTORY: Back pain Sagittal and axial T1 and T2 weighted i mages are obtained. There are no significant disc bulges, protrusions , extrusion seen at any level. There is no stenosis seen at any level. There facet degenerative changes diffusely. The neural foramina are patent bilaterally at all levels. Procedure Note Interface, Bong Aok Incoming Radiology Results - 11/23/2012 10:54 AM ELECTRIC FURNACE OPERATOR MR lumbar spine HISTORY: Back pain Sagittal and axial T1 and T2 weighted images are obtained. There are no significant disc bulges, protrusions, extrusion seen at any level. There is no stenosis seen at any level. There facet degenerative changes diffusely. The neural foramina are patent bilaterally at all levels. IMPRESSION IMPRESSION: Facet degenerative changes otherwise normal MRI of the lumbar spine. Performing Organization Address City/State/Zipcode Ph one Number INTERFACE SYSTEM INTERFACE SYSTEM Refer to clinic/hospital department documented in this encounter Visit Diagnoses Diagnosis Back pain - Primary Backache, unspecified documented in this encounter
--- OUTSIDE RECORDS SUMMARY | 2020-03-24 14:27 | XMS REPORT | Encounter Summary ---
Author Author [facility] Organization [facility] Address Unknown Phone Unavailable Care Team Providers Care Roving Department Supervisor Name Role Phone Shahram Mccallum MD PCP Unavailable Reason for Visit * Reason Comments Medication Refill Perdocet Encounter Details Care Team Description Date Type Department Rosalinda Bal 11/17/2012 Refill [facility] Primar y Care [place] [address] [place] [address] Social History Date Tobacco Use [...] * Telephone Encounter - Rosalinda Bal - 11/17/2012 12:24 PM SUPERVISOR FLOOR ASSEMBLY Per Dr Xena Sarkar 5/ 1/2 tab every 6 hours. RVISOR FLOOR ASSEMBLY documented in this encounter Plan of Treatment Not on filedocumented as of this encounter Visit Diagnoses Not on filedocumented in this encounter
--- OUTSIDE RECORDS SUMMARY | 2020-03-24 14:27 | XMS REPORT | Encounter Summary ---
Author Author [facility] Organization [facility] Address Unknown Phone Unavailable Care Team Providers Care Credit Collections Specialist Name Role Phone Shahram Mccallum MD PCP Unavailable Reason for Referral * Outpatient Services (Routine) Referred By Contact Referred To Contact Status Reason Specialty Diagnoses / Procedures Shahram Mccallum MD NO ADDRESS ON FILE Closed Diagnoses Back pain P rocedures MRI LUMBAR WO CONTRAST Reason for Visit * Outpatient Services (Routine) Referred By Contact Referred To Contact Status Reason Specialty Diagnoses / Procedures Shahram Mccallum MD NO ADDRESS ON FILE Closed Diagnoses Back pain P rocedures MRI LUMBAR WO CONTRAST Encounter Details Care Team Description Date Type Department Shahram Mccallum MD NO ADDRESS ON FILE 11/23/2012 [facility] F ort Encounter [facility] [address] [place] [address] Social History Date Tobacco Use [...] needed for Shortness of Breath or Wheezing. 11/17/2012 11/29/2012 oxyCODONE-acetaminophen Take 1 Tab by 40 Tab 0 (PERCOCET) 5-325 mg Oral mouth every 6 tablet hours as needed for Pain, Moderate. 0.5 tab every 6 hours as needed for pain 11/02/2012 03/14/2013 phenytoin sodium extended 200mg am [...] as of this encounter Miscellaneous Notes * Scanned Form - Scanning, Aok - 11/24/2012 1:22 PM HANDKERCHIEF SAMPLE CLERK Electronically signed by Interface, [facility] Aok Transcriptions Incoming at 3 1:22 PM HANDKERCHIEF SAMPLE CLERK * Scanned Form - Scanning, Aok - 11/24/2012 1:18 PM HANDKERCHIEF SAMPLE CLERK Electronically signed by Interface, [facility] Aok Transcriptions Incoming at 3 1:18 PM HANDKERCHIEF SAMPLE CLERK documented in this encounter Plan of Treatment Not on filedocumented as of this encounter Procedures Comments Procedure Name Priority Date/Time Associated Diag nosis MRI LUMBAR WO CONTRAST Routine 11/23/2012 Back pa in 10:32 AM HANDKERCHIEF SAMPLE CLERK documented in this encounter Results * MRI LUMBAR WO CONTRAST (11/23/2012 10:32 AM HANDKERCHIEF SAMPLE CLERK) Specimen Impressions Performed At IMPRESSION: Facet degenerative [...] bilaterally at all levels. Procedure Note Interface, [facility] Aok Incoming Radiology Results - 11/23/2012 10:54 AM HANDKERCHIEF SAMPLE CLERK MR lumbar spine HISTORY: Back pain Sagittal [...] the lumbar spine. Performing Organization Address City/State/Zipcode one Number INTERFACE SYSTEM INTERFACE SYSTEM Refer to clinic/hospital department documented in this encounter Visit Diagnoses Diagnosis Back pain Backache, unspecified documented in this encounter
--- OUTSIDE RECORDS SUMMARY | 2020-03-24 14:27 | XMS REPORT | Encounter Summary ---
Author Author [facility] Organization [facility] Address Unknown Phone Unavailable Care Team Providers Care Mid Level Business Analyst Name Role Phone Shahram Mccallum MD PCP Unavailable Reason for Visit * Auth/Cert Referred By Contact Referred To Contact Status Reason Specialty Diagnoses / Procedures [facility] [address] [place] [address] Closed Home Health Encounter Details Care Team Description Date Type Department Adwoa Lee RN SN - HOME VISIT 11/29/2012 [facility] [address] [place] [address] Social History Date Tobacco Use [...] Signs Reading Time Taken Comments Vital Sign 135/80 11/29/2012 11:15 AM MATERIAL EXPEDITER Blood Pressure - - Pulse 36.7 C (98 F) 11/29/2012 11:15 AM MATERIAL EXPEDITER Temperature 18 11/29/2012 11:15 AM MATERIAL EXPEDITER Respiratory Rate - - Oxygen Saturation - [...] 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 Active - 1 problem intervention scheduled/documented in this visit Continuum of Care Monitor/ed 08/03/2012 Disciplines: michelleate/rein Group Home force medical appointmen t compliance . Identify and facilitate appropriat e discipline referrals. Active - 2 problem interventions scheduled/documented in this visit Injury Prevention - At risk 08/03/2012 Hypertension for Disciplines: injury: Group Home related to internal factors resulting from complicati ons of hypertensi on Active - 4 problem interventions scheduled/documented in this visit Learning/Teaching Needs - Learning 08/03/2012 Diabetes and Disciplines: teaching Group Home needs associated with diagnosis Active - 3 problem interventions scheduled/documented in this visit Learning/Teaching Needs - Lack of 08/03/2012 Hypertension knowledge Disciplines: re: Group Home medical regimen related to controllin g/managing hypertensi on Active - 4 problem interventions scheduled/documented in this visit Medications Management 08/03/2012 Disciplines: of home Group Home medication s Active - 2 problem interventions scheduled/documented in this visit Problems with Activity - Decreased 08/03/2012 COPD tolerance Disciplines: to normal Group Home activities related to dyspnea and fatigue. Variance [...] box Problem: Completed Description: Medication Fill Medication video arcade manager s weekly. Skilled assessment Problem: Completed medications [...]
--- OUTSIDE RECORDS SUMMARY | 2020-03-24 14:27 | XMS REPORT | Encounter Summary ---
Author Author [facility] Organization [facility] Address Unknown Phone Unavailable Care Team Providers Care Assistant Director Of Residence Life Name Role Phone Shahram Mccallum MD PCP Unavailable Reason for Referral * Outpatient Services (Routine) Referred By Contact Referred To Contact Status Reason Specialty Diagnoses / Procedures Shahram Mccallum MD NO ADDRESS ON FILE Closed Diagnoses Back pain, lumbosacral P rocedures PT EVAL AND TREAT Encounter Details Care Team Description Date Type Department Shahram Mccallum MD NO ADDRESS ON FILE Back pain, lumbosacral (Primary Dx) 11/24/2012 Orders Only [facility] Primar y Care [place] [address] [place] [id number] Social History Date Tobacco Use Types Packs/Day [...] of this encounter Visit Diagnoses Diagnosis Back pain, lumbosacral - Primary Lumbago documented in this encounter
--- OUTSIDE RECORDS SUMMARY | 2020-03-24 14:27 | XMS REPORT | Encounter Summary ---
Author Author [facility] Organization [facility] Address Unknown Phone Unavailable Care Team Providers Care Tipple Operator Name Role Phone Shahram Mccallum MD PCP Unavailable Reason for Visit * Outpatient Services (Routine) Referred By Contact Referred To Contact Status Reason Specialty Diagnoses / Procedures Shahram Mccallum MD NO ADDRESS ON FILE Closed Diagnoses Back pain, lumbosacral P rocedures PT EVAL AND TREAT Encounter Details Care Team Description Date Type Department Shahram Mccallum MD NO ADDRESS ON FILE Danette Go, Physical Therapist [phone] Danette Madsen 11/25/2012 [facility] Therapy rvices Encounter [place] [address] [place] [address] Social History Date Tobacco Use [...] needed for Shortness of Breath or Wheezing. 11/24/2012 05/16/2013 ondansetron (ZOFRAN ODT) Place 1 Tab 4 Tab 1 4 mg Oral TbDL under tongue every 8 hours as needed for Nausea/Emesis . 11/17/2012 11/29/2012 oxyCODONE-acetaminophen Take 1 Tab by [...] as of this encounter Progress Notes * Willy Chaves - 02/14/2013 1:20 PM CDT Electronically signed by Interface, Bong Aguilera Transcriptions Incoming at 3 1:20 PM CDT * Danette Go, Physical Therapist - 11/25/2012 11:36 AM FINISH SAW OPERATOR [facility] [address] [place] [address] / PATIENT INFORMATION Oliverio Dalton 11/25/2012 Medical diagnosis: low back pain Treatment diagnosis: Back pain impairing tolerance to activity Referring Physician: Dr. Shahram Mccallum Primary Insurance: Medicare SUBJECTIVE Oliverio Dalton is a 62 y.o. male who presents with complaints of low back pain . The patient first noted symptoms over 6 months ago. No history of trauma as sociated with pain. Pt c/o pain "all over my body" and is poor historian. Tend s to digress to other body parts pain when talking about his symptoms. Pain Descriptions: Type: aching most of the time, sharp occasionally Location: Across low to mid lumbar area Aggravating Factors: constant but worse at night, wakes up frequently and has a difficult time arising due to pain in the am. Relieving Factors: "take pain medicine" Has not tried using heat ice or stretch ing Levels: Best: . Worst: "15" /10. Current: . 24 Hour Behavior: Keeps awake at night, Wakes from sleep, Constant Prior Level of Function: Bed Mobility: Modified independent Transfers:Modified independent Gait:Modified independent Stairs: Did not perform ADLs: Has caregiver assist for his ADL's IADLs: Patient was able to complete the following activities: Pt has a caregive r 5 hours thru the day that cleans his house and cooks for him. Comments: Pt reports living alone. Presented with wrist brace on left wrist, r eports he is scheduled to see Dr. Bailey next week and thinks he needs carpal tu nnel surgery. HISTORICAL INFORMATION Current Medications: Current Outpatient Prescriptions on File Prior to Encounter Medication Sig Dispense Refill ondansetron (ZOFRAN ODT) [address] 1 Tab under tongue every 8 karly rs as needed for Nausea/Emesis. 4 Tab 1 oxyCODONE-acetaminophen (PERCOCET) 5-325 mg Oral tablet Take 1 Tab by mouth every 6 hours as needed for Pain, Moderate. 0.5 tab every 6 hours as needed for pain 40 Tab 0 phenytoin sodium extended release (DILANTIN) [...] FLUoxetine (PROZAC) 20 mg Oral tablet Take 20 mg by mouth daily. simvastatin (ZOCOR) 40 mg Oral tablet Take 40 mg by mouth Daily LATE. LORazepam (ATIVAN) 1 mg Oral tablet Take 1 Tab by mouth 2 times daily. 60 T ab 2 zolpidem (AMBIEN) 10 mg Oral tablet Take 1 Tab by mouth nightly as needed fo r Insomnia. 30 Tab 2 blood sugar diagnostic (ACCU-CHEK ACTIVE TEST) Misc Strp In the am & pm prn 1 Package 0 insulin glargine (LANTUS) 100 unit/mL subCUT Soln Inject 30 Units by subcuta neous injection daily. fenofibrate nanocrystallized (TRICOR) 145 mg Oral tablet Take 1 Tab by mouth daily with supper. 30 Tab 11 bethanechol (URECHOLINE) 25 mg Oral tablet Take 1 Tab by mouth 4 times daily . 120 Tab 11 tamsulosin (FLOMAX) 0.4 mg Oral [...] Tab by mouth daily. 30 Tab 11 esomeprazole (NEXIUM) 40 mg Oral CpDR Take 1 Cap by mouth daily before break fast. 30 Cap 11 isosorbide mononitrate SR 24 hour (IMDUR) 60 mg Oral tablet Take 1 Tab by mo uth 2 times daily. 60 Tab 11 nitroglycerin (NITROSTAT) 0.4 mg Sublingual [...] 4 hours as needed for P ain. Current Facility-Administered Medications on File Prior to Encounter Medication Dose Route Frequency Provider Last Rate Last Dose ondansetron (ZOFRAN ODT) tablet 4 mg 4 mg Oral ONCE Kentrell Severino MD 4 mg at 11/24/12 1725 sodium chloride 0.9 % flush injection 3 mL 3 mL IV ONCE Kentrell Severino M D 3 mL at 11/24/12 1722 Medication Comments documented by Karen Booker RN on 10/18/2012 at 1514. Medications reconciled Treatment history of this condition: Pt reports he has had an MRI for his back p ain. Denies having any previous treatment for pain. Pt does report he was in [facility] some time ago and was given a TENS unit that "helped calm things zacarias n". Asked if he is currently using his TENS unit and he states, "I need to get those girls together and show them how to use it on me." (Pt was referring to evelyn arcos) Pt reports he was a walker and cane at home but did not use either d evices due to pain he is having in his left wrist. Ambulated very slow and unst adri from waiting room to treatment room. Past Medical History: Past Medical History Diagnosis Date Wrist sprain 08/10 Rt. Contusion, back 08/16/03 Fall Cataract Unspecified disease of respiratory system Glaucoma Asthma Diabetes Seizure disorder Unspecified disorder of lipoid metabolism Coronary artery disease Chronic ischemic heart disease, unspecified Unspecified essential hypertension COPD (chronic obstructive pulmonary disease) Surgical History: Past Surgical History Procedure Date Hx surgical [...] 02/01/2009 COLONOSCOPY performed by MARY ZHOU at [facility] OR Hx hernia repair 1988 And age 4 Hx lap cholecystectomy 05/17/07 Hx coronary artery bypass graft Hx heart catheterization 04/10 With angioplasty, 2 stents Pr lap,appendectomy 05/28/2012 [place]EN[place]CTOMY [place] [facility] [place] Pr repair umbilical colleen,4+y/o,reduc 05/28/2012 HERNIA UMBILICAL REPAIR performed [place] Mary Zhou [place] [facility] [place] Results Review: Radiology: facet degenerative changes, otherwise normal lumbar MRI OBJECTIVE Bowel and Bladder: Bowel: pt reports urgency and looseness to bowels. Bladder: no problems with bladder Postural Assessment: Observation: Pt ambulates with wide base slow gait, unsteady on feet Palpation: c/o tenderness in lumbar spine Strength/ROM ROM Assessment: Flexion: full Extension: full but stands back in neutral position and yells and almost loose s balance Right Side bendin deg Right Rotation: 30 deg Left Side Bendin deg Left Rotation: 30 deg Repetitive Movements: Flexion: increased back Pain level of 6/10 Extension increased back Pain level of 6/10 Functional Strength: Heel Walking (L4): Unable due to balance issues. Toe Walking (S1): Unable due to balance issues . Flexibility Assessment: Within normal limits unless commented below. Hamstring: Left: Mild tightness Right: Mild tightness Heel Cord: Nahid Test: tightness bilaterally Piriformis: tightness bilaterally Gastrocnemius/Soleus: Sensation: Intact, denies numbness Manual Muscle Test: Within functional limits unless noted below. Rectus Abdominus (T12): weak Paraspinals (L1): weak (5= Normal, 4=Good, 3= Fair, 2=Fair, 1=Trace, 0=Absent) Muscle Group Right Left Hip Flexors(L2) 5/5 5/5 Quadriceps(L3) 5/5 5/5 Tibialis Anterior(L4) 5/5 5/5 Hamstring (S2) 4/5 4/5 Special Tests Straight Leg Raise: bilateral is negative Sitting SLR: bilateral is negative Fabere's Test: negative True Leg Length: Equal Apparent Leg Length: Equal SI Compression: unaffected symptoms SI Distraction: unaffected symptoms SI Squish Test: unchanged symptoms Cough/Sneeze: unchanged symptoms ASSESSMENT Pt is a 62 year old male, presents with c/o pain "all over". Being seen for low back pain that he reports is constant and interrupts sleep at night. GOALS AND PLAN Short Term Goals to be completed in 2 weeks 1. Tolerate 10 repetitions of back flexibility/stabilization exercises without i ncrease in symptoms beyond baseline. 2. The patient will be able will verbalize understanding of correct posture and the correct mechanics of lifting. 3. The patient will rate pain as 5/10 4. Demonstrate tolerance of standing, walking and sitting without increased symp toms beyond baseline. Shadowgraph Scale Operator Goals to be completed in 4 weeks 1. The patient will be able to sleep all thru the night. 2. The patient will rate pain as 0-3/10 . 3. Demonstrate safe and proper body mechanics for lifting and other functional t asks. 4. LEATHA with HEP PATIENT GOAL: "Sleep thru the night and be able to do yard work" TREATMENT COMPLETED ON EVALUATION - SEE FLOW SHEET ROM exercise, Strengthening exercise, Functional Exercise, Modalities for pain a nd Hot/Cold Packs RECOMMENDATIONS See Plan of Care - Sent to MD for signature. Danette Go PT SH SAW OPERATOR * Danette Go Physical Therapist - 11/25/2012 11:27 AM FINISH SAW OPERATOR [facility] [address] [place] [phone] , - Please return via fax Patient Information Oliverio Dalton Date: 11/25/2012 Diagnosis: back pain Treatment Diagnosis: back pain Referring Physician: Dr. Shahram Mccallum Physical Therapy Plan of Care This is a recurring issue of back pain Frequency: 3 Xs per week for 2 weeks Certification Date Time Frame: From 11/25/12 To 01/06/13 Treatment Modalities: For: Pain Modalities:hot packs and Ultrasound/Electrical Stimulation Procedures: Therapeutic Exercise and ROM Goals Increase strength to improve functional activities and mobility Increase ROM to allow for functional activities and mobility Decrease pain to allow participation in functional activities, ADLs and life int erests Increase functional status to promote independence Decrease risk factors for further injury or complications: Rehabilitation Potential: good Therapist's Signature: Danette Go PT By signing this plan of care, I am indicating that I have read and reviewed this Plan of Care and deem it medically necessary and appropriate for this patient. By signing, I am indicating that I am the provider whose NPI is listed. Physician Signature SH SAW OPERATOR documented in this encounter Plan of Treatment Not on filedocumented as of this encounter Visit Diagnoses Diagnosis Back pain, lumbosacral Lumbago documented in this encounter
--- OUTSIDE RECORDS SUMMARY | 2020-03-24 14:27 | XMS REPORT | Encounter Summary ---
Author Author [facility] Organization [facility] Address Unknown Phone Unavailable Care Team Providers Care Auto Leasing Manager Name Role Phone Shahram Mccallum MD PCP Unavailable Reason for Visit * Reason Comments Vomiting Pt states that he has been sick for about an hour and vomited three times. Encounter Details Care Team Description Date Type Department Kentrell Severino MD NO ADDRESS ON FILE Vomiting 11/24/2012 Emergency [facility] Emergency Department [address] [address] Social History Date Tobacco [...] Signs Reading Time Taken Comments Vital Sign 117/85 11/24/2012 5:04 PM TEST CENTER ADMINISTRATOR Blood Pressure 114 11/24/2012 5:04 PM TEST CENTER ADMINISTRATOR Pulse 36.9 C (98.5 F) 11/24/2012 5:04 PM TEST CENTER ADMINISTRATOR Temperature 22 11/24/2012 5:04 PM TEST CENTER ADMINISTRATOR Respiratory Rate 96% 11/24/2012 5:04 PM TEST CENTER ADMINISTRATOR Oxygen Saturation - - Inhaled Oxygen Concentration 86.6 kg (191 lb) 11/24/2012 5:04 PM TEST CENTER ADMINISTRATOR Weight 167.6 cm (5' 6") 11/24/2012 5:04 PM TEST CENTER ADMINISTRATOR Height 30.83 11/24/2012 5:04 PM TEST CENTER ADMINISTRATOR Body Mass Index documented in this encounter Discharge Instructions * Patient Instructions* Willy Chaves - 11/25/2012 11:10 AM TEST CENTER ADMINISTRATOR Electronically signed by Interface, Bong Aok Transcriptions Incoming at 3 11:10 AM TEST CENTER ADMINISTRATOR * Additional Instructions* Kentrell Severino MD - 11/24/2012 Zofran ODT 4 mg as needed up to every six hours. * Attachments The following attachments cannot be sent through Care Everywhere.* NAUSEA AND VOMITING: AFTER YOUR VISIT (LUX[place]BOURGISH) documented in this encounter Medications at Time [...] encounter Procedure Notes * Willy Chaves - 11/25/2012 1:25 PM TEST CENTER ADMINISTRATOR Associated Order(s): EKG 12-LEAD Electronically signed by Sienna, Bong Aguilera Transcriptions Incoming at 3 1:25 PM TEST CENTER ADMINISTRATOR * David Ferrer MD - 11/25/2012 12:00 PM TEST CENTER ADMINISTRATOR Associated Order(s): EKG 12-LEAD [facility]. [address] [place] [address]. [place], [place] [address] EKG OLIVERIO DALTON EF05 [id number] 11/24/12 at 1717. The rhythm is regular, rapi d, sinus in origin with a rate of 112 beats per minute. T waves are flattened to inverted across the lateral limb and chest leads. Compared with previous tracing dated September 05 2012, the rate has increased significantly on the current t racing and the rhythm is clearly sinus in origin currently. Diagnosis: 1) Sinus tachycardia, rate 112 beats per minute. 2) Nonspecific T wave changes. Dictated by Debbie. Dictated by: EKG DD 11/25/12 TD 11/25/12/LRG EKG REPORT # [id number] ORDER # CENTER ADMINISTRATOR documented in this encounter ED Notes * Kentrell Severino MD - 11/24/2012 5:13 PM TEST CENTER ADMINISTRATOR HISTORY OF PRESENT ILLNESS Oliverio Dalton, a 62 y.o. male presents to the ED with a Chief Complaint of Vo miting Patient is a 62 y.o. male presenting with vomiting. The history is provided by t he patient. Vomiting This is a recurrent problem. The current episode started less than 1 hour ago. E pisode frequency: has intermittant vomiting of long standing, but tonight coughe d and vomited once. no diarrhea. The problem has been resolved. The emesis has a n appearance of stomach contents. There has been no fever. Associated symptoms i nclude cough. Pertinent negatives include no abdominal pain, no chills, no diarr hea, no fever and no sweats. REVIEW OF SYSTEMS Review of Systems Constitutional: Negative for fever and chills. Respiratory: Positive for cough. Cardiovascular: Positive for chest pain (had some chest pain before vomiting modesto t resolved with one NTG). Gastrointestinal: Positive for vomiting. Negative for abdominal pain, diarrhea a nd abdominal distention. PAST MEDICAL HISTORY REVIEWED Past Medical History [...] 02/01/2009 COLONOSCOPY performed by MARY ZHOU at [facility] OR Hx hernia repair 1988 And age 4 Hx lap cholecystectomy 05/17/07 Hx coronary artery bypass graft Hx heart catheterization 04/10 With angioplasty, 2 stents Pr lap,appendectomy 05/28/2012 APPENDECTOMY LAPAROSCOPIC performed by Mary Zhou MD at [facility] OR Pr repair umbilical colleen,4+y/o,reduc 05/28/2012 HERNIA UMBILICAL REPAIR performed by Mary Zhou MD at [facility] OR Family History Problem Relation Age of [...] Home Medications New Prescriptions for this Encounter ONDANSETRON (ZOFRAN ODT) [address] 1 Tab under tongue every 8 karly rs as needed for Nausea/Emesis. Current Home Medications AEROBID IN Take 2 [...] this Encounter PHYSICAL EXAM Initial Vitals BP 11/24/12 1704 117/85 mmHg Pulse 11/24/12 1704 114 Resp 11/24/12 1704 22 Temp 11/24/12 1704 98.5 F (36.9 C) Temp src -- SpO2 11/24/12 1704 96 % Physical Exam Nursing note and vitals [...] orders placed during the hospital encounter of 11/24/12 (from the [facility] 24 hour(s)) COMPREHENSIVE METABOLIC PANEL Component Value Range GLUCOSE 213 (*) 70 - 100 mg/dl BUN 8.0 7 - 20 mg/dl CREATININE 0.71 0.67 - 1.17 mg/dl BUN/CREAT RATIO 11.3 10 - 20 GFR 119 >60 ml/min SODIUM 134 134 - 145 mmol/L POTASSIUM 4.1 3.3 - 4.8 mmol/L CHLORIDE 100 98 - 107 mmol/L CO2 26.3 22 - 31 mmol/L ANION GAP 12 4 - 20 CALCIUM 9.6 8.5 - 10.1 mg/dl ALBUMIN 3.4 3.4 - 5.0 g/dl TOTAL PROTEIN 7.6 6.4 - 8.2 g/dl GLOBULIN (CALC) 4.2 ALBUMIN/GLOBULIN RATIO 0.8 BILIRUBIN TOTAL 0.4 <1.1 mg/dl ALKALINE PHOSPHATASE 153 (*) 50 - 136 IU/L AST 18 10 - 40 IU/L ALT 28 25 - 70 IU/L CBC WITH DIFFERENTIAL Component Value Range WBC 8.57 3.0 - 10.4 x10E3 RBC 4.40 4.15 - 5.75 x10E6 HEMOGLOBIN 12.3 (*) 13.8 - 17.4 g/dL HEMATOCRIT 36.8 (*) 38.6 - 49.4 % MCV 83.7 79 - 100 fL MCH 27.9 (*) 28 - 34 pg MCHC 33.3 31 - 35 g/dL RDW 13.7 12.1 - 14.1 % PLATELETS 601 (*) 148 - 408 x10E3 MPV 8.1 7.4 - 10.6 fL NEUTROPHILS 73.3 (*) 43 - 73 % LYMPHOCYTES 18.3 (*) 19 - 47 % MONOCYTES 5.8 3 - 9 % EOSINOPHILS 2.3 0 - 6 % BASOPHILS 0.3 0 - 1.2 % NEUTROPHIL ABSOLUTE 6.27 1.3 - 7.6 x10E3 LYMPHOCYTE ABSOLUTE 1.57 0.6 - 4.9 x10E3 MONOCYTE ABSOLUTE 0.50 0.1 - 0.9 x10E3 EOSINOPHIL ABSOLUTE 0.20 0.0 - 0.2 x10E3 BASOPHILS ABSOLUTE 0.03 0 - 0.1 x10E3 RADIOLOGY: EKG: no acute changes PROCEDURES Procedures REEVALUATION MEDICAL DECISION MAKING AND PLAN OF CARE . New Prescriptions for this Encounter ONDANSETRON (ZOFRAN ODT) [address] 1 Tab under tongue every 8 karly rs as needed for Nausea/Emesis. Last vitals BP 117/85 | Pulse 114 | Temp 98.5 F (36.9 C) | Resp 22 | Ht 5' 6" (1.676 m) | Wt 86.637 kg | BMI 30.83 kg/m2 | SpO2 96% Coding Medications Administered During the ED Stay from 11/24/2012 1658 to 11/24/2012 1 749 Date/Time Order Dose Route Action 11/24/2012 1725 ondansetron (ZOFRAN ODT) tablet 4 mg 4 mg Oral Given 11/24/2012 1722 sodium chloride 0.9 % flush injection 3 mL 3 mL IV Given CLINICAL IMPRESSION Final diagnoses: Vomiting CASE DISCUSSED DISPOSITION, EDUCATION AND MEDICATION RECONCILIATION Medications reconciled. See after visit summary for patient education on discha rged patients. Zofran ODT now. EKG, CBC,CMP OK to go home. Zofran ODT 4 mg as needed up to every six hours. CENTER ADMINISTRATOR documented in this encounter Plan of Treatment Not on filedocumented as of this encounter Procedures Comments Procedure Name Priority Date/Time Associated Diag nosis EKG 12-LEAD Stat 11/25/2012 1:25 PM TEST CENTER ADMINISTRATOR CBC WITH DIFFERENTIAL Stat 11/24/2012 5:15 PM TEST CENTER ADMINISTRATOR COMPREHENSIVE METABOLIC Stat 11/24/2012 PANEL 5:15 PM TEST CENTER ADMINISTRATOR documented in this encounter Results * EKG 12-LEAD (11/25/2012 1:25 PM TEST CENTER ADMINISTRATOR) Narrative Performed At This result has an attachment that is n ot available. Transcriptions David Bernard MD - 11/25/2012 12:00 PM TEST CENTER ADMINISTRATOR [facility]. [address] [place] [address]. [place] [address] EKG OLIVERIO DALTON EF05 [id number] 11/24/12 at 1717. The rhythm is regular, rapid, sinus in origin with a rate of 112 beats per minute. T waves are flattened to inverted across the lateral limb and chest leads. Compared with previous tracing dated September 05 2012, the rate has increased significantly on the current tracing and the rhythm is clearly sinus in origin currently. Diagnosis: 1) Sinus tachycardia, rate 112 beats per minute. 2) Nonspecific T wave changes. Dictated by S.V.W. Dictated by: EKG DD 11/25/12 TD 11/25/12/LRG EKG REPORT # [id number] ORDER # 11/25/2012 1:25 PM TEST CENTER ADMINISTRATOR * CBC WITH DIFFERENTIAL (11/24/2012 5:15 PM TEST CENTER ADMINISTRATOR) WBC 8.57 3.0 - 10.4 x10E3 [facility] [place] RBC 4.40 4.15 - 5.75 x10E6 [facility] [place] HEMOGLOBIN 12.3 (L) 13.8 - 17.4 g/dL [facility] HEMATOCRIT 36.8 (L) 38.6 - 49.4 % [facility] MCV 83.7 79 - 100 fL [facility] MCH 27.9 (L) 28 - 34 pg [facility] MCHC 33.3 31 - 35 g/dL [facility] RDW 13.7 12.1 - 14.1 % [facility] [place] PLATELETS 601 (H) 148 - 408 x10E3 [facility] MPV 8.1 7.4 - 10.6 fL [facility] [place] NEUTROPHILS 73.3 (H) 43 - 73 % [facility] [place] LYMPHOCYTES 18.3 (L) 19 - 47 % [facility] [place] MONOCYTES 5.8 3 - 9 % [facility] [place] EOSINOPHILS 2.3 0 - 6 % [facility] [place] BASOPHILS 0.3 0 - 1.2 % [facility] [place] NEUTROPHIL 6.27 1.3 - 7.6 x10E3 [facility] [place] LYMPHOCYTE 1.57 0.6 - 4.9 x10E3 [facility] [place] MONOCYTE 0.50 0.1 - 0.9 x10E3 [facility] [place] EOSINOPHIL 0.20 0.0 - 0.2 x10E3 [facility] [place] BASOPHILS 0.03Comment: [facility] 0 - 0.1 x10E3 [facility] ACCT#[id number], ,,,, [facility] [place] Specimen Blood specimen (specimen) Performing Organization Address City/State/Zipcode Ph one Number [facility] CLIA# [id number] [place] [address] - [place] [address] [place] [address] LABORATORY SERVICES CLIA# [id number] [place] [address] - [facility] [place] [address] [place] [address] * COMPREHENSIVE METABOLIC PANEL (11/24/2012 5:15 PM TEST CENTER ADMINISTRATOR) [facility] GLUCOSE 213 (H) 70 - 100 mg/dl [facility] [place] BUN 8.0 7 - 20 mg/dl [facility] [place] CREATININE 0.71 0.67 - 1.17 mg/dl [facility] [place] BUN/CREAT RATIO 11.3 10 - 20 [facility] [place] GFR 119 >60 ml/min [facility] [place] SODIUM 134 134 - 145 mmol/L [facility] [place] POTASSIUM 4.1 3.3 - 4.8 mmol/L [facility] [place] CHLORIDE 100 98 - 107 mmol/L [facility] [place] CO2 26.3 22 - 31 mmol/L [facility] [place] ANION GAP 12 4 - 20 [facility] [place] CALCIUM 9.6 8.5 - 10.1 mg/dl [facility] [place] ALBUMIN 3.4 3.4 - 5.0 g/dl [facility] [place] TOTAL PROTEIN 7.6 6.4 - 8.2 g/dl [facility] [place] GLOBULIN (CALC) 4.2 [facility] [place] ALBUMIN/GLOBULI 0.8 [facility] N [facility] [place] BILIRUBIN TOTAL 0.4 <1.1 mg/dl [facility] [place] ALKALINE 153 (H) 50 - 136 IU/L [facility] PHOSPHATASE [facility] [place] AST 18 10 - 40 IU/L [facility] [place] ALT 28Comment: [facility] 25 - 70 IU/L [facility] ACCT#[id number], ,,,, [facility] [place] Specimen Blood specimen (specimen) Performing Organization Address City/State/[facility] Ph one Number [facility] CLIA# [id number] [place] [address] - [place] [address] [place] [address] LABORATORY SERVICES CLIA# [id number] [place] [address] - [address] documented in this encounter Visit Diagnoses Diagnosis Vomiting Vomiting alone documented in this encounter Administered Medications Action Date Dose Rate Site Medication Order MAR Action 11/24/2012 5:25 PM TEST CENTER ADMINISTRATOR 4 mg ondansetron (ZOFRAN ODT) tablet 4 mg Given 4 mg, Oral, ONE TIME ONLY, 1 dose, Nancy 11/24/12 at 1715, Routine 11/24/2012 5:22 PM TEST CENTER ADMINISTRATOR 3 mL sodium chloride 0.9 % flush injection 3 Given mL 3 mL, IV, ONE TIME ONLY, 1 dose, Nancy 11/24/12 at 1730, Routine SODIUM CHLORIDE 0.9 % SYRINGE 1 dose, Starting Nancy 11/24/12 at 1712, Until Nancy 11/24/12 at 1722, Keller OMNICELL: cabinet override, documented in this encounter
--- OUTSIDE RECORDS SUMMARY | 2020-03-24 14:27 | XMS REPORT | Encounter Summary ---
Author Author [facility] Organization [facility] Address Unknown Phone Unavailable Care Team Providers Care Pizza Delivery Driver Name Role Phone Shahram Mccallum MD PCP Unavailable Encounter Details Care Team Description Date Type Department Shahram Mccallum MD NO ADDRESS ON FILE [facility] [place] [address] [place] [address] Social History Date Tobacco Use [...] needed for Shortness of Breath or Wheezing. 11/07/2012 11/17/2012 oxyCODONE-acetaminophen Take 1-2 Tabs 40 Tab 0 (PERCOCET) 5-325 mg Oral by mouth tablet every 6 hours as needed for Pain, Moderate. 11/02/2012 03/14/2013 phenytoin sodium extended 200mg am [...] Name Priority Date/Time Associated Diag nosis XR FOREARM 2 VW LEFT Routine 11/16/2012 Left arm pain 12:03 PM COLLECTIONS CLERK documented in this encounter Results * XR FOREARM 2 VW LEFT (11/16/2012 12:03 PM COLLECTIONS CLERK) Specimen Impressions Performed At IMPRESSION: No acute abnormality. INTERFACE SYSTEM Narrative Performed At Left forearm INTERFACE SYSTEM Indication forearm pain AP and lateral views and straight no fr acture or subluxation or abnormal radiopacity in the soft tissue s. Procedure Note Interface, [facility] Aok Incoming Radiology Results - 11/16/2012 12:16 PM COLLECTIONS CLERK Left forearm Indication forearm pain AP and lateral views and straight no fracture or subluxation or abnormal radiopacity in the soft tissues. IMPRESSION IMPRESSION: No acute abnormality. Performing Organization Address City/State/Zipcode Ph one Number INTERFACE SYSTEM INTERFACE SYSTEM Refer to clinic/hospital department documented in this encounter Visit Diagnoses Diagnosis Left arm pain Pain in limb documented in this encounter
--- OUTSIDE RECORDS SUMMARY | 2020-03-24 14:28 | XMS REPORT | Encounter Summary ---
Author Author [facility] Organization [facility] Address Unknown Phone Unavailable Care Team Providers Care Printed Circuit Boards Beveler Name Role Phone Shahram Mcacllum MD PCP Unavailable Reason for Referral * Eval and Treat (Routine) Referred By Contact Referred To Contact Status Reason Specialty Diagnoses / Procedures Shahram Mccallum MD NO ADDRESS ON FILE Nish Nicole MD [address] [place] [phone] Closed Neurology Diagnoses Carpal tunnel syndrome Reason for Visit * Reason Comments Leg Swelling right lower extremity, left upper extremity, leg onset 07/20, arm onset 09/19 Weight Loss 24 pounds in last 6 weeks Headache daily Vomiting almost daily, severe nausea Melena noticed large amount of blo od in stool 11/06/12 Sleep Problem insomnia, inability to rela x or sleep Encounter Details Care Team Description Date Type Department Shahram Mccallum MD NO ADDRESS ON FILE Left arm pain (Primary Dx); Left wrist pain; Leg edema, right; Carpal tunnel syndrome 11/16/2012 Office Visit [facility] [address] [address] Social History Date Tobacco Use [...] Signs Reading Time Taken Comments Vital Sign 118/82 11/16/2012 11:17 AM UNARMED SECURITY OFFICER Blood Pressure 94 11/16/2012 11:17 AM UNARMED SECURITY OFFICER Pulse - - Temperature - - Respiratory Rate - - Oxygen Saturation - - Inhaled Oxygen Concentration 89.6 kg (197 lb 8 oz) 11/16/2012 11:17 AM UNARMED SECURITY OFFICER Weight - - Height 32.87 10/28/2012 1:46 PM UNARMED SECURITY OFFICER Body Mass Index documented in this encounter Progress Notes * Shahram Mccallum MD - 11/16/2012 7:51 PM UNARMED SECURITY OFFICER Subjective: Oliverio Dlaton is a 62 y.o. male. Patient Active [...] elevation 790.6 Osteoarthritis of right knee 715.96 Current Outpatient Prescriptions on File Prior to Visit Medication Sig Dispense Refill oxyCODONE-acetaminophen (PERCOCET) 5-325 mg Oral tablet Take 1-2 Tabs by henrik th every 6 hours as needed for Pain, Moderate. 40 Tab 0 phenytoin sodium extended release [...] (by systems): Arthritis symptoms: diffuse arthralgias and pain L low back and L leg is better. today most pain L forearm, wrist and ? some carpal tunnel like sxs. uses this hand / wrist to gete out of chiar etc. no ohter injury. Chest Pain symptoms: none, shortness of breath and mild unilateral R lower leg w ith sl swelling. does not seem to related with worsening CHF Review of Systems: ROS has all of the following chronically: Headache Dizziness Chest pain Shortness of breath Bowel changes Bladder changes Pain in muscle or joints Exam/Objective: Normal Exam for Routine Visits: \Blood pressure 118/82, pulse 94, weight 197 lb 8 oz (89.585 kg). General appearance: chronic ill appearing, active, alert, cooperative, social, n ormally nourished, and in no acute distress Lungs: breath sounds equal, clear to auscultation bilaterally, no retractions, n o stridor, normal respiratory effort Heart: regular rate and rhythm, S1, S2 normal, no murmur, click, rub, gallop, or abnormal sounds. Abdomen: soft, non-tender. Bowel sounds normal. No masses, no organomegaly. Ac tive bowel sounds. Extremities: asymmetrical trace R lower leg edematous. Tender L distal forearm and carpal tunnel tender. Assessment and Plan: ASSESSMENT: Encounter Diagnoses Name Primary? Left arm pain Yes Left wrist pain Leg edema, right Carpal tunnel syndrome PLAN: Orders Placed This Encounter XR WRIST 3+ VW LEFT XR FOREARM 2 VW LEFT Nicole, Nish [place] WRIST COCK-UP NON-MOLDED Needs to reduce percocet. Take 1/2 along with ES TYlenol. See if nausea better a nd stabilizes wt and appetite Appropriate medications prescribed (see detailed AVS). Appropriate patient instructions provided (see detailed AVS). Follow-up as I have indicated. Medications and options explained to include common side effects. Understanding of medications, course, diagnosis, and expectations were expressed by patient/g uardian. MED SECURITY OFFICER documented in this encounter Plan of Treatment Order Schedule Name Type Priority Associated Diag noses Ordered: 11/16/2012 AMB REFERRAL TO NEUROLOGY Outpatient Routine Carp al tunnel syndrome Referral documented as of this encounter Results * XR WRIST 3+ VW LEFT (11/16/2012 12:03 PM UNARMED SECURITY OFFICER) Specimen Impressions Performed At IMPRESSION: No acute fracture or subluxation. INTERF JOSE SYSTEM Narrative Performed At Left wrist INTERFACE SYSTEM INDICATION: Wrist pain Three views left wrist obtained and str aight spotty bony demineralization . No acute fracture or subluxation involving the left wrist identified. Mild degenerative dionicio nge noted. Procedure Note Interface, [facility] A[facility] Incoming Radiology Results - 11/16/2012 12:15 PM UNARMED SECURITY OFFICER Left wrist INDICATION: Wrist pain Three views left wrist obtained and straight spotty bony demineralization . No acute fracture or subluxation involving the left wrist identified. Mild degenerative change noted. IMPRESSION IMPRESSION: No acute fracture or subluxation. Performing Organization Address [facility] one Number INTERFACE SYSTEM INTERFACE SYSTEM Refer to clinic/hospital department * XR FOREARM 2 VW LEFT (11/16/2012 12:03 PM UNARMED SECURITY OFFICER) Specimen Impressions Performed At IMPRESSION: No acute abnormality. INTERFACE SYSTEM Narrative Performed At Left forearm INTERFACE SYSTEM Indication forearm pain AP and lateral views and straight no fr acture or subluxation or abnormal radiopacity in the soft tissue s. Procedure Note Interface, [facility] Incoming Radiology Results - 11/16/2012 12:16 PM UNARMED SECURITY OFFICER Left forearm Indication forearm pain AP and lateral views and straight no fracture or subluxation or abnormal radiopacity in the soft tissues. IMPRESSION IMPRESSION: No acute abnormality. Performing Organization Address [facility] one Number INTERFACE SYSTEM INTERFACE SYSTEM Refer to clinic/hospital department documented in this encounter Visit Diagnoses Diagnosis Left arm pain - Primary Pain in limb Left wrist pain Pain in joint, forearm Leg edema, right Edema Carpal tunnel syndrome documented in this encounter
--- OUTSIDE RECORDS SUMMARY | 2020-03-24 14:28 | XMS REPORT | Encounter Summary ---
Author Author [facility] Organization [facility] Address Unknown Phone Unavailable Care Team Providers Care Sales Representative Electric Service Name Role Phone Shahram Mccallum MD PCP Unavailable Reason for Visit * Auth/Cert Referred By Contact Referred To Contact Status Reason Specialty Diagnoses / Procedures [facility] Home Health [facility] [address] [place] [address] Closed Home Health Encounter Details Care Team Description Date Type Department Karen Booker RN SN - HOME VISIT 11/02/2012 Home Care Visit [facility] Healt [facility] [address] [place] [address] Social History Date Tobacco Use [...] Signs Reading Time Taken Comments Vital Sign 138/76 11/02/2012 2:30 PM CRIME PREVENTION WORKER Blood Pressure - - Pulse 36.7 C (98 F) 11/02/2012 2:30 PM CRIME PREVENTION WORKER Temperature 18 11/02/2012 2:30 PM CRIME PREVENTION WORKER Respiratory Rate - - Oxygen Saturation - [...] 12/05/2012 - COPD of dread Disciplines: and Care Home apprehensi on Active - 3 problem interventions scheduled/documented in this visit Breathing Problems - COPD Inadequate 08/03/2012 Disciplines: breathing Care Home pattern Active - 3 problem interventions scheduled/documented in this visit Failure to Comply With Behaviors 08/03/2012 Plan of Care of Disciplines: patient/ca Care Home regiver that do not follow the plan of care. Active - 1 problem intervention scheduled/documented in this visit Continuum of Care Monitor/ed 08/03/2012 Disciplines: ucate/rein Care Home force medical appointmen t compliance . Identify and facilitate appropriat e discipline referrals. Active - 2 problem interventions scheduled/documented in this visit Injury Prevention - At risk 08/03/2012 Hypertension for Disciplines: injury: Care Home related to internal factors resulting from complicati ons of hypertensi on Active - 4 problem interventions scheduled/documented in this visit Learning/Teaching Needs - Learning 08/03/2012 Diabetes and Disciplines: teaching Care Home needs associated with diagnosis Active - 3 problem interventions scheduled/documented in this visit Learning/Teaching Needs - Lack of 08/03/2012 Hypertension knowledge Disciplines: re: Care Home medical regimen related to controllin g/managing hypertensi on Active - 4 problem interventions scheduled/documented in this visit Medications Management 08/03/2012 Disciplines: of home Care Home medication s Active - 2 problem interventions scheduled/documented in this visit Problems with Activity - Decreased 08/03/2012 COPD tolerance Disciplines: to normal Care Home activities related to dyspnea and fatigue. [...] box Problem: Completed Description: Medication Fill Medication space planner s weekly. Skilled assessment Problem: Completed [...] Health Visit - Actions and Narratives Patient tearful today during my visit. States that he just cant take this pain anymore. States that his left groin is very painful and not being controlled with pain pills. I did call donor relations manager (patients physician is not in) to repor t pain and he is to see Dr. Mccallum tomorrow or come to ER if pain worsens tonight. documented in this encounter
--- OUTSIDE RECORDS SUMMARY | 2020-03-24 14:28 | XMS REPORT | Encounter Summary ---
Author Author [facility] Organization [facility] Address Unknown Phone Unavailable Care Team Providers Care Car Ferry Master Name Role Phone Shahram Mccallum MD PCP Unavailable Reason for Visit * Reason Comments Medication Review Encounter Details Care Team Description Date Type Department Shahram Mccallum MD NO ADDRESS ON FILE Medication Review 11/07/2012 Telephone [facility] Primar y Care [address] [address] Social History Date Tobacco Use [...] * Telephone Encounter - Nuris Miramontes - 11/07/2012 3:18 PM WASHER CUTTER Request refill of oxycodone 5-325 mg #40. rx written and taken to [facility] pharmacy ER CUTTER documented in this encounter Plan of Treatment Not on filedocumented as of this encounter Visit Diagnoses Not on filedocumented in this encounter
--- OUTSIDE RECORDS SUMMARY | 2020-03-24 14:28 | XMS REPORT | Encounter Summary ---
Author Author [facility] Organization [facility] Address Unknown Phone Unavailable Care Team Providers Care Mold Shifter Name Role Phone Shahram Mccallum MD PCP Unavailable Reason for Visit * Reason Comments Diarrhea Encounter Details Care Team Description Date Type Department Shahram Mccallum MD NO ADDRESS ON FILE Diarrhea 11/04/2012 Telephone [facility] Primar y [facility] [address] [place] [address] Social History Date Tobacco Use [...] * Telephone Encounter - Nuris Miramontes - 11/04/2012 10:31 AM LOGISTICS OPERATIONS DIRECTOR Pt calls stating he had a diarrhea stool last night and noticed bright red blood in the stool and on the toilet paper. Pt Had another diarrhea stool this am and states he could not see any blood in the stool or on the toilet paper. Pt inst ructed to start a clear liquid diet for 24 hours. Pt will need to be seen if he has recurrent episode of blood in his stool. Pt states he has a history of hemor rhoids. STICS OPERATIONS DIRECTOR documented in this encounter Plan of Treatment Not on filedocumented as of this encounter Visit Diagnoses Not on filedocumented in this encounter
--- OUTSIDE RECORDS SUMMARY | 2020-03-24 14:28 | XMS REPORT | Encounter Summary ---
Author Author [facility] Organization [facility] Address Unknown Phone Unavailable Care Team Providers Care Elevator Repair Mechanic Name Role Phone Shahram Mccallum MD PCP Unavailable Reason for Visit * Auth/Cert Referred By Contact Referred To Contact Status Reason Specialty Diagnoses / Procedures [facility] Health [facility] [address] [place] [address] Closed Home Health Encounter Details Care Team Description Date Type Department Bree Reed RN SN - HOME VISIT 10/25/2012 Home Care Visit [facility] Healt h [facility] [address] [place] [address] Social History Date Tobacco Use [...] Signs Reading Time Taken Comments Vital Sign 136/70 10/25/2012 4:45 PM RAILROAD BRAKE REPAIRER Blood Pressure - - Pulse 36.6 C (97.8 F) 10/25/2012 4:45 PM RAILROAD BRAKE REPAIRER Temperature 18 10/25/2012 4:45 PM RAILROAD BRAKE REPAIRER Respiratory Rate - - Oxygen Saturation - [...] 12/05/2012 - COPD of dread Disciplines: and Senior Care apprehensi on Active - 3 problem interventions scheduled/documented in this visit Breathing Problems - COPD Inadequate 08/03/2012 Disciplines: breathing Senior Care pattern Active - 3 problem interventions scheduled/documented in this visit Failure to Comply With Behaviors 08/03/2012 Plan of Care of Disciplines: patient/ca Senior Care regiver that do not follow the plan of care. Active - 1 problem intervention scheduled/documented in this visit Continuum of Care Monitor/ed 08/03/2012 Disciplines: ucate/rein Senior Care force medical appointmen t compliance . Identify and facilitate appropriat e discipline referrals. Active - 2 problem interventions scheduled/documented in this visit Injury Prevention - At risk 08/03/2012 Hypertension for Disciplines: injury: Senior Care related to internal factors resulting from complicati ons of hypertensi on Active - 4 problem interventions scheduled/documented in this visit Learning/Teaching Needs - Learning 08/03/2012 Diabetes and Disciplines: teaching Senior Care needs associated with diagnosis Active - 3 problem interventions scheduled/documented in this visit Learning/Teaching Needs - Lack of 08/03/2012 Hypertension knowledge Disciplines: re: Senior Care medical regimen related to controllin g/managing hypertensi on Active - 4 problem interventions scheduled/documented in this visit Medications Management 08/03/2012 Disciplines: of home Senior Care medication s Active - 2 problem interventions scheduled/documented in this visit Problems with Activity - Decreased 08/03/2012 COPD tolerance Disciplines: to normal Senior Care activities related to dyspnea and fatigue. Variance [...] box Problem: Completed Description: Medication Fill Medication office workforce planner s weekly. Skilled assessment Problem: Completed [...] Health Visit - Actions and Narratives Pt. is very upset and crying. Pt. expr esses that he had made comments that he should shot himself prior to his last hospitalization.. Gun s have been taken out of home. Cannot protect himself. Pt. has appt. with Dr. Fajardo, pt.'s pschy logist on . Pt. expresses that he was in so much pain and could not get it in control. in low er back. Pt. expresses that his pain is under control at the present. Pt. received an injection in his rt. knee yesterday by Dr. Tamayo. Much imporved. Started Ibuprofen 800mg tid. Pt. was al so told that he has to have proximal rt. thumb joint replaced or fused. documented in this encounter
--- OUTSIDE RECORDS SUMMARY | 2020-03-24 14:28 | XMS REPORT | Encounter Summary ---
Author Author [facility] Organization [facility] Address Unknown Phone Unavailable Care Team Providers Care Outer Diameter Technician Name Role Phone Shahram Mccallum MD PCP Unavailable Reason for Visit * Reason Comments Medication Refill Encounter Details Care Team Description Date Type Department Nikky Woods 10/26/2012 Refill [facility] Primar y Care [address] [phone] Social History Date Tobacco Use Types Packs/Day [...]
--- OUTSIDE RECORDS SUMMARY | 2020-03-24 14:28 | XMS REPORT | Encounter Summary ---
Author [facility] Address Unknown Phone Unavailable Care Team Providers Care Prosthetist Name Role Phone Shahram Mccallum MD PCP Unavailable Reason for Visit * Auth/Cert Referred By Contact Referred To Contact Status Reason Specialty Diagnoses / Procedures [facility] Health [facility] [address] [place] [address] Closed Home Health Encounter Details Care Team Description Date Type Department Charles Frederick, Physical Therapist PT - HOME VISIT 11/04/2012 Home Care Visit [facility] Healt [facility] [address] [place] [address] [...] Signs Reading Time Taken Comments Vital Sign 132/85 11/04/2012 7:30 AM AEROSPACE TECHNICIAN Blood Pressure 110 11/04/2012 7:30 AM AEROSPACE TECHNICIAN Pulse - - Temperature - - Respiratory [...] problem intervention scheduled/documented in this visit Physical Mobility, Weakness, 10/19/2012 Impaired gait Disciplines: disturbanc Physical Therapy e, decreased activity tolerance, back and knee pain, assist required for bed mobility Variance Visit Notes Intervention Associated Status Problem/Go al Visit on 11/04/2012 by Charles Frederick, PT [[id number]] at 11/04/2012 10:01:33 AM See PT assessment for treatment. PT - STRENGTHENING Problem: Completed Physical Mobility, Impaired documented in this encounter Home Health Visit - Actions and Narratives Printed HEP given for standing ther ex. Pt demos understanding. Pt c/o blood in stool last night. Pt s poke with ' RN while PT was present. RN to call pt after speaking with Dr. Palak cosby, therefore pain was not reported to . is aware of pt's hand pain. Pt is now using Clifton balm on hands which seems to help with the pain. documented in this encounter
--- OUTSIDE RECORDS SUMMARY | 2020-03-24 14:28 | XMS REPORT | Encounter Summary ---
Author Author [facility] Organization [facility] Address Unknown Phone Unavailable Care Team Providers Care Health Assistant Name Role Phone Shahram Mccallum MD PCP Unavailable Reason for Visit * Auth/Cert Referred By Contact Referred To Contact Status Reason Specialty Diagnoses / Procedures [facility] Home Health [facility] [address] [place] [address] Closed Home Health Encounter Details Care Team Description Date Type Department Karen Booker RN SN - HOME VISIT 11/07/2012 Home Care Visit [facility] Healt [facility] [address] [place] [address] Social History Date Tobacco Use [...] Reading Time Taken Comments Vital Sign 128/74 11/07/2012 1:15 PM PEN RIDER Blood Pressure - - Pulse 36.1 C (97 F) 11/07/2012 1:15 PM PEN RIDER Temperature 18 11/07/2012 1:15 PM PEN RIDER Respiratory Rate - - Oxygen Saturation - [...] 12/05/2012 - COPD of dread Disciplines: and Detention apprehensi on Active - 3 problem interventions scheduled/documented in this visit Breathing Problems - COPD Inadequate 08/03/2012 Disciplines: breathing Detention pattern Active - 3 problem interventions scheduled/documented in this visit Failure to Comply With Behaviors 08/03/2012 Plan of Care of Disciplines: patient/ca Detention regiver that do not follow the plan of care. Active - 1 problem intervention scheduled/documented in this visit Continuum of Care Monitor/ed 08/03/2012 Disciplines: ucate/rein Detention force medical appointmen t compliance . Identify and facilitate appropriat e discipline referrals. Active - 2 problem interventions scheduled/documented in this visit Injury Prevention - At risk 08/03/2012 Hypertension for Disciplines: injury: Detention related to internal factors resulting from complicati ons of hypertensi on Active - 4 problem interventions scheduled/documented in this visit Learning/Teaching Needs - Learning 08/03/2012 Diabetes and Disciplines: teaching Detention needs associated with diagnosis Active - 3 problem interventions scheduled/documented in this visit Learning/Teaching Needs - Lack of 08/03/2012 Hypertension knowledge Disciplines: re: Detention medical regimen related to controllin g/managing hypertensi on Active - 4 problem interventions scheduled/documented in this visit Medications Management 08/03/2012 Disciplines: of home Detention medication s Active - 2 problem interventions scheduled/documented in this visit Problems with Activity - Decreased 08/03/2012 COPD tolerance Disciplines: to normal Detention activities related to dyspnea and fatigue. Variance [...] box Problem: Completed Description: Medication Fill Medication supply chain planner s weekly. Skilled assessment Problem: Completed [...] Health Visit - Actions and Narratives Physician called about pain level above 5 as patient is out of his pain medication. New script to be sent to [facility]. documented in this encounter
--- OUTSIDE RECORDS SUMMARY | 2020-03-24 14:28 | XMS REPORT | Encounter Summary ---
Author Author [facility] Organization [facility] Address Unknown Phone Unavailable Care Team Providers Care Shelter Advocate Name Role Phone Shahram Mccallum MD PCP Unavailable Reason for Visit * Auth/Cert Referred By Contact Referred To Contact Status Reason Specialty Diagnoses / Procedures [facility] [address] [place] [address] Closed Home Health Encounter Details Care Team Description Date Type Department Bree Reed RN SN - HOME VISIT 11/15/2012 Home Care Visit [facility] Healt [facility] [address] [place] [address] Social History Date Tobacco Use [...] Signs Reading Time Taken Comments Vital Sign 136/67 11/15/2012 1:00 PM PARKING CASHIER Blood Pressure - - Pulse 35.9 C (96.7 F) 11/15/2012 1:00 PM PARKING CASHIER Temperature 18 11/15/2012 1:00 PM PARKING CASHIER Respiratory Rate - - Oxygen Saturation - [...] Continuum of Care Monitor/ed 08/03/2012 Disciplines: ucate/rein Mcc force medical appointmen t compliance . [...] symptoms of infection, home safety and medications. Visit on 11/15/2012 by Bree Reed RN [[id number]] at 11/22/2012 8:22:12 AM Pt. is compliant with medication inventory planner usage. Weekly medication inventory planner prepared by nurse. Medication administration Problem: Completed Description: Medication Patient to take s medications from medication box set up by SN. Medication box Problem: Completed Description: Medication Fill Medication inventory planner s weekly. Skilled assessment Problem: Completed [...] Home Health Visit - Actions and Narratives Nurse did not contact physician with pt . rating pain above a 5 on pain scale of 0-20. Pt. was going to take pain medication when nurse comp letes visit. Pt. expresses that he is getting a second opinion later this month due to not be ing satisfied with pain control and possible treatment options for pain in rt. hand and lower back. documented in this encounter
--- OUTSIDE RECORDS SUMMARY | 2020-03-24 14:28 | XMS REPORT | Encounter Summary ---
Author Author [facility] Organization [facility] Address Unknown Phone Unavailable Care Team Providers Care Process Planner Name Role Phone Shahram Mccallum MD PCP Unavailable Reason for Visit * Reason Comments Post Hospital Check Encounter Details Care Team Description Date Type Department Shahram Mccallum MD NO ADDRESS ON FILE Back pain; Renal stone; Left wrist pain; Unspecified essential hypertension; Hyperlipidemia 10/28/2012 Office Visit [facility] Primar [address] [address] Social History Date Tobacco Use [...] Reading Time Taken Comments Vital Sign 124/60 10/28/2012 1:46 PM HOG TRADER Blood Pressure 96 10/28/2012 1:46 PM HOG TRADER Pulse - - Temperature - - Respiratory Rate - - Oxygen Saturation - - Inhaled Oxygen Concentration 92.1 kg (203 lb) 10/28/2012 1:46 PM HOG TRADER Weight 165.1 cm (5' 5") 10/28/2012 1:46 PM HOG TRADER Height 33.78 10/28/2012 1:46 PM HOG TRADER Body Mass Index documented in this encounter Progress Notes * Shahram Mccallum MD - 10/29/2012 9:59 PM HOG TRADER Subjective: Oliverio Dalton is a 62 y.o. [...] to Visit Medication Sig Dispense Refill ondansetron (ZOFRAN) 4 mg Oral Tab Take 1 Tab by mouth every 6 hours as need ed for Nausea/Emesis. 15 Tab 0 ibuprofen (MOTRIN) 800 mg Oral tablet Take 1 Tab by mouth 3 times daily with meals. 90 Tab 3 oxyCODONE-acetaminophen (PERCOCET) 10-325 mg Oral Tab Take 1 Tab by mouth ev len 4 hours as needed for Pain, Severe. 30 Tab 0 FLUoxetine (PROZAC) 20 mg Oral tablet Take 20 mg by mouth daily. simvastatin (ZOCOR) 40 mg Oral tablet Take 40 mg by mouth Daily LATE. phenytoin sodium extended release (DILANTIN) 100 mg Oral capsule Take 100 mg by mouth see administration instructions. 200mg am 100mg pm LORazepam (ATIVAN) 1 mg Oral tablet Take [...] (by systems): Arthritis symptoms: diffuse arthralgias and recent hosp with back pain that is n ow much better but still L lat low back lingering. also cont with bilat wrist p ain L>R. no new injury. Chest Pain symptoms: none, shortness of breath and not acutely changed Review of Systems: ROS Denies all of the following: Headache Dizziness Chest pain Shortness of breath Bowel changes Bladder changes: has known L renal stone but ?? If sxs of back are related. Has appt with Dr Gastelum Pain in muscle or joints Exam/Objective: Normal Exam for Routine Visits: \\Blood pressure 124/60, pulse 96, height 5' 5" ( 1.651 m), weight 203 lb (92.08 kg). General appearance: chronic ill but sl more healthy appearing, active, alert, co operative, social, normally nourished, and in no acute [...] ASSESSMENT: Encounter Diagnoses Name Primary? Back pain Renal stone Left wrist pain Unspecified essential hypertension Hyperlipidemia PLAN: No orders of the defined types were placed in this encounter. Cont current regimen Splint wrist See uro Appropriate medications prescribed (see detailed AVS). Appropriate patient instructions provided (see detailed AVS). Follow-up as I have indicated. Medications and options explained to include common side effects. Understanding of medications, course, diagnosis, and expectations were expressed by patient/g uardian. TRADER documented in this encounter Plan of Treatment Not on filedocumented as of this encounter Visit Diagnoses Diagnosis Back pain Backache, unspecified Renal stone Calculus of kidney Left wrist pain Pain in joint, forearm Unspecified essential hypertension Hyperlipidemia Other and unspecified hyperlipidemia documented in this encounter
--- OUTSIDE RECORDS SUMMARY | 2020-03-24 14:28 | XMS REPORT | Encounter Summary ---
Author Author [facility] Organization [facility] Address Unknown Phone Unavailable Care Team Providers Care Insurance Examiner Name Role Phone hSahram Mccallum MD PCP Unavailable Reason for Visit * Auth/Cert Referred By Contact Referred To Contact Status Reason Specialty Diagnoses / Procedures [facility] [address] [place] [address] Closed Home Health Encounter Details Care Team Description Date Type Department Charles Frederick, Physical Therapist PT - HOME VISIT 11/02/[facility] [address] [place] [address] Social History Date Tobacco Use [...] problem interventions scheduled/documented in this visit Physical Mobility, Weakness, 10/19/2012 Impaired gait Disciplines: disturbanc Physical Therapy e, decreased activity tolerance, back and knee pain, assist required for bed mobility Variance Visit Notes Intervention Associated Status Problem/Go al Visit on 11/02/2012 by Charles Frederick, PT [[id number]] at 11/02/2012 5:16:06 PM See PT assessment for treatment. PT - STRENGTHENING Problem: Completed Physical Mobility, Impaired Visit on 11/02/2012 by Charles Frederick, PT [[id number]] at 11/02/2012 5:16:06 PM See PT assessment for treatment. PT - BED MOBILITY Problem: TRAINING Physical Mobility, Impaired documented in this encounter Home Health Visit - Actions and Narratives Pain worse in am and then again in pm. Pain increases with WB. Positive hip scour. Pain increases with hip flexion and hip ER. Ice/heat do not help. documented in this encounter
--- OUTSIDE RECORDS SUMMARY | 2020-03-24 14:28 | XMS REPORT | Encounter Summary ---
Author Author [facility] Organization [facility] Address Unknown Phone Unavailable Care Team Providers Care Corporate Webmaster Name Role Phone Shahram Mccallum MD PCP Unavailable Reason for Visit * Reason Comments Medication Refill Encounter Details Care Team Description Date Type Department Shahram Mccallum MD NO ADDRESS ON FILE 11/02/2012 Refill [facility] Primar y Care [address] [phone] Social History Date Tobacco Use Types Packs/Day [...]
--- OUTSIDE RECORDS SUMMARY | 2020-03-24 14:28 | XMS REPORT | Encounter Summary ---
Author Author [facility] Organization [facility] [employer] [facility] Address Unknown Phone Unavailable Care Team Providers Care Faith Doctor Name Role Phone Shharam Mccallum MD PCP Unavailable Reason for Visit * Auth/Cert Referred By Contact Referred To Contact Status Reason Specialty Diagnoses / Procedures [facility] Home Health [facility] [address] [place] [address] Closed Home Health Encounter Details Care Team Description Date Type Department Charles Frederick, Physical Therapist PT - HOME VISIT 10/26/2012 [facility] [address] [place] [address] Social History Date Tobacco Use [...] Intervention Associated Status Problem/Go al Visit on 10/26/2012 [place] [id number] [[id number]] at 10/26/2012 4:31:37 PM See PT assessment for treatment. PT - STRENGTHENING Problem: Completed Physical Mobility, Impaired documented in this encounter Home Health Visit - Actions and Narratives Pt's swelling in R knee has significant ly decreased since last visit. Pt has not used TENS unit last couple of days. Only c/o pain is in hands. Discussed pain relief techniques. Pt verbalizes understanding. documented in this encounter
--- OUTSIDE RECORDS SUMMARY | 2020-03-24 14:28 | XMS REPORT | Encounter Summary ---
Author Author [facility] Organization [facility] Address Unknown Phone Unavailable Care Team Providers Care Electro Tech Name Role Phone Shahram Mccallum MD PCP Unavailable Reason for Visit * Auth/Cert Referred By Contact Referred To Contact Status Reason Specialty Diagnoses / Procedures [facility] Home Health [facility] [address] [place] [address] Closed Home Health Encounter Details Care Team Description Date Type Department Charles Frederick, Physical Therapist PT - HOME VISIT 11/07/2012 [facility] [address] [place] [address] Social History Date Tobacco Use [...] Intervention Associated Status Problem/Go al Visit on 11/07/2012 by Charles Frederick, PT [[id number]] at 11/07/2012 4:00:51 PM See PT assessment for treatment. PT - STRENGTHENING Problem: Completed Physical Mobility, Impaired documented in this encounter Home Health Visit - Actions and Narratives Pt has not had to use TENS unit. Knees , L hip and back feel pretty good. Main c/o hand pain. documented in this encounter
--- OUTSIDE RECORDS SUMMARY | 2020-03-24 14:28 | XMS REPORT | Encounter Summary ---
Author Author [facility] Organization [facility] Address Unknown Phone Unavailable Care Team Providers Care Retirement Sales Consultant Name Role Phone Shahram Mccallum MD PCP Unavailable Encounter Details Care Team Description Date Type Department Shahram Mccallum MD NO ADDRESS ON FILE [facility] En[facility] [place] [address] [place] [address] Social History Date Tobacco [...] nosis XR WRIST 3+ VW LEFT Routine 11/16/2012 Left wrist pain 12:03 PM TECHNICAL SPEC documented in this encounter Results * XR WRIST 3+ VW LEFT (11/16/2012 12:03 PM TECHNICAL SPEC) Specimen Impressions Performed At IMPRESSION: No acute fracture or subluxation. INTERF JOSE SYSTEM Narrative Performed At Left wrist INTERFACE SYSTEM INDICATION: Wrist pain Three views left wrist obtained and str aight spotty bony demineralization . No acute fracture or subluxation involving the left wrist identified. Mild degenerative dionicio nge noted. Procedure Note Interface, [facility] Incoming Radiology Results - 11/16/2012 12:15 PM TECHNICAL SPEC Left wrist INDICATION: Wrist pain Three views left wrist obtained and straight spotty bony demineralization . No acute fracture or subluxation involving the left wrist identified. Mild degenerative change noted. IMPRESSION IMPRESSION: No acute fracture or subluxation. Performing Organization Address City/State/Zipcode Ph one Number INTERFACE SYSTEM INTERFACE SYSTEM Refer to clinic/hospital department documented in this encounter Visit Diagnoses Diagnosis Left wrist pain Pain in joint, forearm documented in this encounter
--- OUTSIDE RECORDS SUMMARY | 2020-03-24 14:28 | XMS REPORT | Encounter Summary ---
Author Author [facility] Organization [facility] Address Unknown Phone Unavailable Care Team Providers Care Manufacturing Supervisor Name Role Phone Shahram Mccallum MD PCP Unavailable Reason for Visit * Auth/Cert Referred By Contact Referred To Contact Status Reason Specialty Diagnoses / Procedures [facility] [address] [place] [address] Closed Home Health Encounter Details Care Team Description Date Type Department Charles Frederick Physical Therapist PT - DISCIPLINE DISCHARGE 11/09/2012 Home Care Visit [facility] [address] [place] [address] Social History Date Tobacco Use [...] Signs Reading Time Taken Comments Vital Sign 110/81 11/09/2012 10:00 AM COMMISSIONING MANAGER Blood Pressure 97 11/09/2012 10:00 AM COMMISSIONING MANAGER Pulse - - Temperature - - Respiratory [...] Problem Descriptio Start Date n Resolved on 11/09/2012 - 1 problem intervention scheduled/documented in this visit Physical Mobility, Weakness, 10/19/2012 Impaired gait Disciplines: disturbanc Physical Therapy e, decreased activity tolerance, back and knee pain, assist required for bed mobility Variance Visit Notes Intervention Associated Status Problem/Go al PT - STRENGTHENING Problem: Completed Physical Mobility, Impaired documented in this encounter Home Health Visit - Actions and Narratives TENS applied to L hand/forearm. Unable to get adequate placement of electrodes as electrodes are losing adhesiveness. Pt did report dec rease in pain after TENS attempt. Pt's caregiver reports pt is having a b ad day. Pt considering getting a trapeze. PT recommends handirail instead to increase ease of b ed mobility. documented in this encounter
--- OUTSIDE RECORDS SUMMARY | 2020-03-24 14:29 | XMS REPORT | Encounter Summary ---
Author Author [facility] Organization [facility] Address Unknown Phone Unavailable Care Team Providers Care Personal Investment Adviser Name Role Phone Shahram Mccallum MD PCP Unavailable Reason for Visit * Auth/Cert Referred By Contact Referred To Contact Status Reason Specialty Diagnoses / Procedures [facility] [address] [place] [address] Closed Home Health Encounter Details Care Team Description Date Type Department Charles Frederick Physical Therapist PT - INITIAL DISCIPLINE VISIT 10/19/2012 [facility] [address] [place] [address] Social History [...] Signs Reading Time Taken Comments Vital Sign 140/76 10/19/2012 11:00 AM CAPSULE FILLING MACHINE OPERATOR Blood Pressure 96 10/19/2012 11:00 AM CAPSULE FILLING MACHINE OPERATOR Pulse - - Temperature - - [...] Intervention Associated Status Problem/Go al Visit on 10/19/2012 by Charles Frederick, PT [[id number]] at 10/19/2012 3:24:19 PM See PT assessment for treatment. PT - BED MOBILITY Problem: Completed TRAINING Physical Mobility, Impaired documented in this encounter Home Health Visit - Actions and Narratives Yes Type of aid: 4WW Unable to complete TUG due to significa nt pain. R knee evaluated. Negative for instabi lity. Positive for pain along medial joint line. Knee is swollen and warm. No redness noted. P t is able to fully extend the knee. Pain with end range flexion. Pt did not tolerate apley man uever. MMT B LE 5/5 except hip flexion 4/5. ROM B LE WFL. Instructed pt/caregiver on use of TENS unit. TENS applied to thoracic area. Pt/caregiver verbalize understanding. Pt hospitalized for a week due to sever e back pain. Cause not clear. S/p lithotripsy, possible lumbar disc pathology. Follow up with PCP. If pain persists, planning for a orthopedic (?) consult. Has new 4WW. Was using SPC o ccassionally prior to hospitalization. Pt has caregivers 5 hours/day. Pt c/o R knee swelling that he first noticed this morning when he woke up. Does recall stubbling in bathroom last night. Pain 8/10 at rest. documented in this encounter
--- OUTSIDE RECORDS SUMMARY | 2020-03-24 14:29 | XMS REPORT | Encounter Summary ---
Author Author [facility] Organization [facility] Address Unknown Phone Unavailable Care Team Providers Care User Experience Team Lead Name Role Phone Shahram Mccallum MD PCP Unavailable Reason for Visit * Reason Comments Question Could I get RX for walker a nd tens units? Encounter Details Care Team Description Date Type Department Rosalinda Bal Question (Could I get RX for walker and tens units?) 10/18/2012 Telephone [facility] [address] [address] Social History Date Tobacco Use [...] * Telephone Encounter - Rosalinda Bal - 10/18/2012 12:13 PM SEMI CONDUCTOR ASSEMBLER Prescription written and signed by Dr Mccallum, faxed to [address] CONDUCTOR ASSEMBLER documented in this encounter Plan of Treatment Not on filedocumented as of this encounter Visit Diagnoses Not on filedocumented in this encounter
--- OUTSIDE RECORDS SUMMARY | 2020-03-24 14:29 | XMS REPORT | Encounter Summary ---
Author Author [facility] Organization [facility] Address Unknown Phone Unavailable Care Team Providers Care Senior Center Manager Name Role Phone Shahram Mccallum MD PCP Unavailable Encounter Details Care Team Description Date Type Department Jada Fernandez MD NO ADDRESS ON FILE [facility] Se rvices Encounter [place] [address] [place] [address] Social History Date Tobacco Use [...] needed for Shortness of Breath or Wheezing. 12/06/2014 FLUoxetine (PROZAC) 20 mg Take by 0 Oral tablet mouth daily. take 2 capsules daily 05/09/2013 simvastatin (ZOCOR) 40 mg Take 40 mg by 0 Oral tablet mouth Daily LATE. 11/02/2012 phenytoin sodium extended Take 100 mg 0 release (DILANTIN) 100 mg by mouth see Oral capsule administratio n instructions. 200mg am 100mg pm 10/18/2012 01/10/2013 LORazepam (ATIVAN) 1 mg Take 1 Tab by 60 Tab 2 Oral tablet mouth 2 times daily. 10/24/2012 ibuprofen (MOTRIN) 800 mg Take 800 mg 0 Oral tablet by mouth every 6 hours as needed. 08/30/2012 12/05/2012 zolpidem (AMBIEN) 10 mg Take [...] Priority Date/Time Associated Diag nosis XR KNEE 1 OR 2 VW RIGHT Routine 10/19/2012 Knee p ain 3:19 PM MAKEUP EDITOR documented in this encounter Results * XR KNEE 1 OR 2 VW RIGHT (10/19/2012 3:19 PM MAKEUP EDITOR) Specimen Impressions Performed At IMPRESSION: Normal knee INTERFACE SYSTEM Narrative Performed At Right knee INTERFACE SYSTEM HISTORY: Pain To views are obtained No fractures or dislocations are seen. No bony masses are noted. No arthritic changes are seen. There are n umerous vascular clips present. Procedure Note Interface, [facility] Incoming Radiology Results - 10/19/2012 3:27 PM MAKEUP EDITOR Right knee HISTORY: Pain To views are obtained No fractures or dislocations are seen. No bony masses are noted. No arthritic changes are seen. There are numerous vascular clips present. IMPRESSION IMPRESSION: Normal knee Performing Organization Address City/State/Zipcode Ph one Number INTERFACE SYSTEM INTERFACE SYSTEM Refer to clinic/hospital department documented in this encounter Visit Diagnoses Diagnosis Knee pain Pain in joint, lower leg documented in this encounter
--- OUTSIDE RECORDS SUMMARY | 2020-03-24 14:29 | XMS REPORT | Encounter Summary ---
Author Author [facility] Organization [facility] Address Unknown Phone Unavailable Care Team Providers Care Referral Coordinator Name Role Phone Shahram Mccallum MD PCP Unavailable Reason for Visit * Reason Comments Medication Question needs refill of Lorazepam a nd correct med list Encounter Details Care Team Description Date Type Department Rosalinda Bal Medication Question (needs refill of [place] azepam and correct med list) 10/18/2012 Telephone [facility] [address] [address] Social History Date Tobacco Use [...] Telephone Encounter - Rosalinda Bal - 10/18/2012 4:[address] Mccallum may refill Lorazepam. OTYPIST documented in this encounter Plan of Treatment Not on filedocumented as of this encounter Visit Diagnoses Not on filedocumented in this encounter
--- OUTSIDE RECORDS SUMMARY | 2020-03-24 14:29 | XMS REPORT | Encounter Summary ---
Author Author [facility] Organization [facility] Address Unknown Phone Unavailable Care Team Providers Care Rubber Goods Assembler Name Role Phone Shahram Mccallum MD PCP Unavailable Reason for Referral * Eval and Treat (Routine) Referred By Contact Referred To Contact Status Reason Specialty Diagnoses / Procedures Jada Fernandez MD NO ADDRESS ON FILE Jose Bailey MD [address] [place] [address] Closed Orthopedic Diagnoses Surgery Knee pain Knee effusion, right Reason for Visit * Reason Comments Knee Pain right knee, swollen and hot Encounter Details Care Team Description Date Type Department Jada Fernandez MD NO ADDRESS ON FILE Knee pain; Knee effusion, right 10/19/2012 Office Visit [address] [address] Social History Date Tobacco Use [...] Reading Time Taken Comments Vital Sign 100/60 10/19/2012 2:56 PM CHILD SUPPORT OFFICER Blood Pressure - - Pulse - - Temperature - - Respiratory Rate - - Oxygen Saturation - - Inhaled Oxygen Concentration 99.8 kg (220 lb) 10/19/2012 2:56 PM CHILD SUPPORT OFFICER Weight 167.6 cm (5' 6") 10/19/2012 2:56 PM CHILD SUPPORT OFFICER Height 35.51 10/19/2012 2:56 PM CHILD SUPPORT OFFICER Body Mass Index documented in this encounter Progress Notes * Kaye Fernandez MD - 10/19/2012 4:12 PM CHILD SUPPORT OFFICER HISTORY OF PRESENT ILLNESS Oliverio Dalton, a 62 y.o. male. HPIhere with increased L knee pain and swelling and sensation of warmth. Underly ing degenerative arthritis. No fever. REVIEW OF SYSTEMS Review of Systems Constitutional: Negative for fever, chills, activity change, appetite change and unexpected weight change. HENT: Negative for congestion and neck pain. Eyes: Negative for visual disturbance. Respiratory: Negative for chest tightness and shortness of breath. Cardiovascular: Negative for chest pain. Gastrointestinal: Negative for abdominal pain. Genitourinary: Negative for difficulty urinating. Musculoskeletal: Positive for joint swelling and arthralgias. PHYSICAL EXAM BP 100/60 | Ht 5' 6" (1.676 m) | Wt 220 lb (99.791 kg) | BMI 35.51 kg/m2 Physical Exam Nursing note and vitals reviewed. [...] range of motion. He exhibits tenderness (R knee with sli ght effusion. neg drawer sign and neg Kelly). Neurological: He is alert and oriented to person, place, and time. Skin: Skin is warm and dry. There is erythema (slight over R knee). ASSESSMENT and PLAN: 1. Knee pain (719.46) AMB REFERRAL TO ORTHOPEDIC SURGERY, XR KNEE 1 OR 2 VW RIG HT, CBC WITH DIFFERENTIAL, COMPREHENSIVE METABOLIC PANEL, URIC ACID, sulfamethox azole-trimethoprim (BACTRIM DS) 800-160 mg Oral tablet, oxyCODONE-acetaminophen (PERCOCET) 10-325 mg Oral Tab 2. Knee effusion, right (719.06) AMB REFERRAL TO ORTHOPEDIC SURGERY D SUPPORT OFFICER documented in this encounter Plan of Treatment Order Schedule Name Type Priority Associated Diag noses Ordered: 10/19/2012 AMB REFERRAL TO Outpatient Routine Knee pain ORTHOPEDIC SURGERY Referral Knee effusion, righ t documented as of this encounter Results * URIC ACID (10/19/2012 3:34 PM CHILD SUPPORT OFFICER) URIC ACID 3.1 (L)Comment: 3.5 - 7.2 mg/dl [place], [place] LABORATORY ACCT#[id number], ,,,, SERVICES - [place] Specimen Blood specimen (specimen) Performing Organization Address City/State/[facility] Ph one Number [facility] CLIA# [id number] [place], [place] [address] [address] LABORATORY SERVICES CLIA# [id number] [place] [address] - [address] * COMPREHENSIVE METABOLIC PANEL (10/19/2012 3:34 PM CHILD SUPPORT OFFICER) GLUCOSE 226 (H) 70 - 100 mg/dl [facility] - [place] BUN 17.0 7 - 20 mg/dl [facility] - [place] CREATININE 0.61 (L) 0.67 - 1.17 mg/dl [facility] - [place] BUN/CREAT RATIO 27.9 (H) 10 - 20 [facility] - [place] GFR 142 >60 ml/min [facility] - [place] SODIUM 136 134 - 145 mmol/L [facility] - [place] POTASSIUM 4.0 3.3 - 4.8 mmol/L [facility] - [place] CHLORIDE 99 98 - 107 mmol/L [facility] - [place] CO2 25.9 22 - 31 mmol/L [facility] - [place] ANION GAP 15 4 - 20 [facility] - [place] CALCIUM 9.0 8.5 - 10.1 mg/dl [facility] - [place] ALBUMIN 3.3 (L) 3.4 - 5.0 g/dl [facility] - [place] TOTAL PROTEIN 7.6 6.4 - 8.2 g/dl [facility] - [place] GLOBULIN (CALC) 4.3 [facility] - [facility] ALBUMIN/GLOBULI 0.8 [facility] N RATIO LABORATORY SERVICES - [place] BILIRUBIN TOTAL 0.3 <1.1 mg/dl [facility] - [place] ALKALINE 192 (H) 50 - 136 IU/L [facility] - [place] AST 19 10 - 40 IU/L [facility] - [place] ALT 51Comment: [facility] 25 - 70 IU/L [facility] ACCT#[id number], ,,,, LABORATORY SERVICES - [place] Specimen Blood specimen (specimen) Performing Organization Address City/State/Zipcode Ph one Number [facility] CLIA# [id number] [place] [address] - [place] [address] [place] [address] LABORATORY SERVICES CLIA# [id number] [place] [address] - [place] [address] [place] [address] * CBC WITH DIFFERENTIAL (10/19/2012 3:34 PM CHILD SUPPORT OFFICER) [facility] Signature WBC 9.56 3.0 - 10.4 x10E3 [facility] - [place] RBC 4.48 4.15 - 5.75 x10E6 [facility] - [place] HEMOGLOBIN 12.6 (L) 13.8 - 17.4 g/dL [facility] - [place] HEMATOCRIT 37.9 (L) 38.6 - 49.4 % [facility] - [place] MCV 84.5 79 - 100 fL [facility] - [place] MCH 28.1 28 - 34 pg [facility] - [place] MCHC 33.3 31 - 35 g/dL [facility] - [place] RDW 12.9 12.1 - 14.1 % [facility] - [place] PLATELETS 478 (H) 148 - 408 x10E3 [facility] - [place] MPV 6.6 (L) 7.4 - 10.6 fL [facility] - [place] NEUTROPHILS 74.7 (H) 43 - 73 % [facility] - [facility] LYMPHOCYTES 16.6 (L) 19 - 47 % [facility] - [place] MONOCYTES 6.8 3 - 9 % [facility] - [place] EOSINOPHILS 1.5 0 - 6 % [facility] [place] BASOPHILS 0.3 0 - 1.2 % [facility] [place] NEUTROPHIL 7.15 1.3 - 7.6 x10E3 [facility] [place] LYMPHOCYTE 1.59 0.6 - 4.9 x10E3 [facility] [place] MONOCYTE 0.65 0.1 - 0.9 x10E3 [facility] - [place] EOSINOPHIL 0.15 0.0 - 0.2 x10E3 [facility] - [place] BASOPHILS 0.03Comment: SUGEYElis-GAB LYNN 0 - 0.1 x10E3 [facility]#[id number], ,,,, LABORATORY SERVICES - [place] Specimen Blood specimen (specimen) Performing Organization Address City/[facility] Ph one Number [facility] CLIA# [id number] [place] [address] - [place] [address] [place] [address] LABORATORY SERVICES CLIA# [id number] [place] [address] - [place] [address] [place] [address] * XR KNEE 1 OR 2 VW RIGHT (10/19/2012 3:19 PM CHILD SUPPORT OFFICER) Specimen Impressions Performed At IMPRESSION: Normal knee INTERFACE SYSTEM Narrative Performed At Right knee INTERFACE SYSTEM HISTORY: Pain To views are obtained No fractures or dislocations are seen. No bony masses are noted. No arthritic changes are seen. There are n umerous vascular clips present. Procedure Note Interface, [facility] Incoming Radiology Results - 10/19/2012 3:27 PM CHILD SUPPORT OFFICER Right knee HISTORY: Pain To views are obtained No fractures or dislocations are seen. No bony masses are noted. No arthritic changes are seen. There are numerous vascular clips present. IMPRESSION IMPRESSION: Normal knee Performing Organization Address City/[facility] Ph one Number INTERFACE SYSTEM INTERFACE SYSTEM Refer to clinic/hospital department documented in this encounter Visit Diagnoses Diagnosis Knee pain Pain in joint, lower leg Knee effusion, right Effusion of lower leg joint documented in this encounter
--- OUTSIDE RECORDS SUMMARY | 2020-03-24 14:29 | XMS REPORT | Encounter Summary ---
Author Author [facility] Organization [facility] Address Unknown Phone Unavailable Care Team Providers Care Teaseler Name Role Phone Shahram Mccallum MD PCP Unavailable Reason for Visit * Reason Comments Medication Refill pt walked into office reque sting refills on percocet. Pt received percocet 5/325 #20 on 10/18/12 and then received percocet 10/325 #30 on 10/19/12. When talking to pt, pt admits to have t aken all 50 tablets within a [address] Mccallum request is denie d pt is taking to much tylenol and that is going to harm his liver. pt not ified. Encounter Details Care Team Description Date Type Department Shahram Mccallum MD NO ADDRESS ON FILE 10/24/2012 [facility] [address] [place] [id number] Social History Date Tobacco Use Types Packs/Day [...]
--- OUTSIDE RECORDS SUMMARY | 2020-03-24 14:29 | XMS REPORT | Encounter Summary ---
Author Author [facility] Organization [facility] Address Unknown Phone Unavailable Care Team Providers Care Farm Labor Contractor Name Role Phone Shahram Mccallum MD PCP Unavailable Reason for Visit * Auth/Cert Referred By Contact Referred To Contact Status Reason Specialty Diagnoses / Procedures [facility] [address] [place] [address] Closed Home Health Encounter Details Care Team Description Date Type Department Charles Frederick, Physical Therapist PT - MISSED VISIT NO TRAVEL 10/24/2012 Home Care Visit [facility] [address] [place] [address] Social History Date Tobacco Use [...]
--- OUTSIDE RECORDS SUMMARY | 2020-03-24 14:29 | XMS REPORT | Encounter Summary ---
Author Author [facility] Organization [facility] Address Unknown Phone Unavailable Care Team Providers Care Export Administrator Name Role Phone Shahram Mccallum MD PCP Unavailable Reason for Visit * Auth/Cert Referred By Contact Referred To Contact Status Reason Specialty Diagnoses / Procedures [facility] [address] [place] [address] Closed Home Health Encounter Details Care Team Description Date Type Department Karen Booker RN SN - HOME VISIT 10/20/2012 Home Care Visit [facility] [address] [place] [address] Social History Date Tobacco [...] Reading Time Taken Comments Vital Sign 124/70 10/20/2012 3:15 PM FAIRING WORKER Blood Pressure - - Pulse 36.5 C (97.7 F) 10/20/2012 3:15 PM FAIRING WORKER Temperature 18 10/20/2012 3:15 PM FAIRING WORKER Respiratory Rate - - Oxygen Saturation [...] 12/05/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 Active - 1 problem intervention scheduled/documented in this visit Continuum of Care Monitor/ed 08/03/2012 Disciplines: ucate/rein Prison force medical appointmen t compliance . Identify and facilitate appropriat e discipline referrals. Active - 2 problem interventions scheduled/documented in this visit Injury Prevention - At risk 08/03/2012 Hypertension for Disciplines: injury: Prison related to internal factors resulting from complicati ons of hypertensi on Active - 4 problem interventions scheduled/documented in this visit Learning/Teaching Needs - Learning 08/03/2012 Diabetes and Disciplines: teaching Prison needs associated with diagnosis Active - 3 problem interventions scheduled/documented in this visit Learning/Teaching Needs - Lack of 08/03/2012 Hypertension knowledge Disciplines: re: Prison medical regimen related to controllin g/managing hypertensi on Active - 4 problem interventions scheduled/documented in this visit Medications Management 08/03/2012 Disciplines: of home Prison medication s Active - 2 problem interventions scheduled/documented in this visit Problems with Activity - Decreased 08/03/2012 COPD tolerance Disciplines: to normal Prison activities related to dyspnea and fatigue. Variance [...] from medication box set up by SN. Visit on 10/20/2012 by Karen Booker RN [[id number]] at 10/20/2012 3:18:52 PM Added antibiotics to med data processing systems project planner Medication box Problem: Completed Description: Medication Fill Medication data processing systems project planner s weekly. Skilled assessment Problem: Completed [...] - Actions and Narratives Patient was seen by yesterday after being sent in to dr by physical therapist due to sudden onset of swelling and redness of right knee. Swelling and redness of right knee continue. Patient was started on po bactrim and his oxycodone was increased from 5mg to 10mg. Patient states that even with the increase in the dosage that hi s pain is still severe. He had xrays done and is waiting on the results. documented in this encounter
--- OUTSIDE RECORDS SUMMARY | 2020-03-24 14:29 | XMS REPORT | Encounter Summary ---
Author [facility] Organization [facility] Address Unknown Phone Unavailable Care Team Providers Care Prosthodontist/Owner Name Role Phone Shahram Mccallum MD PCP Unavailable Reason for Visit * Auth/Cert Referred By Contact Referred To Contact Status Reason Specialty Diagnoses / Procedures [facility] [address] [place] [address] Closed Home Health Encounter Details Care Team Description Date Type Department Karen Booker RN SN - OASIS RESUMPTION OF CARE 10/18/2012 Home Care Visit [facility] [address] [place] [address] Social History Date Tobacco Use [...] Reading Time Taken Comments Vital Sign 128/74 10/18/2012 10:30 AM SLUG PRESS OPERATOR Blood Pressure - - Pulse 36.5 C (97.7 F) 10/18/2012 10:30 AM SLUG PRESS OPERATOR Temperature 20 10/18/2012 10:30 AM SLUG PRESS OPERATOR Respiratory Rate - - Oxygen Saturation - - Inhaled Oxygen Concentration - - Weight - - Height - - Body Mass Index documented in this encounter Plan of Treatment Not on filedocumented as of this encounter Visit Diagnoses Not on filedocumented in this encounter Home Health Visit - Care Plan Visit Type - SN - OASIS JOCE Discipline - Long Term Status Goals Interventions Problem Descriptio Start Date n Active - 3 problem interventions scheduled/documented in this visit Apprehension/Nervousness Feelings 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 Active - 1 problem intervention scheduled/documented in this visit Continuum of Care Monitor/ed 08/03/2012 Disciplines: ucate/rein Long Term force medical appointmen t compliance . Identify and facilitate appropriat e discipline referrals. Active - 1 problem intervention scheduled/documented in this visit Continuum of Care Monitor/ed 10/18/2012 Disciplines: ucate/rein Long Term force medical appointmen t compliance . Identify and facilitate appropriat e discipline referrals. Active - 2 problem interventions scheduled/documented in this visit Injury Prevention - At risk 08/03/2012 Hypertension for Disciplines: injury: Long Term related to internal factors resulting from complicati ons of hypertensi on Active - 4 problem interventions scheduled/documented in this visit Learning/Teaching Needs - Learning 08/03/2012 Diabetes and Disciplines: teaching Long Term needs associated with diagnosis Active - 3 problem interventions scheduled/documented in this visit Learning/Teaching Needs - Lack of 08/03/2012 Hypertension knowledge Disciplines: re: Long Term medical regimen related to controllin g/managing hypertensi on Active - 4 problem interventions scheduled/documented in this visit Medications Management 08/03/2012 Disciplines: of home Long Term medication s Active - 2 problem interventions scheduled/documented in this visit Problems with Activity - Decreased 08/03/2012 COPD tolerance Disciplines: to normal Long Term activities related to dyspnea and fatigue. Variance [...] modify the plan of care as needed. Review Medical Problem: Completed Appointments Description: Continuum Review medical of Care appointments with patient and caregiver. Reinforce importance of compliance with scheduled appointments. Visit on 10/18/2012 by Karen Booker RN [[id number]] at 10/18/2012 4:35:44 PM Referral given to PT. Discipline Referral Problem: Completed Description: HH Assess need for Continuum discipline referral. of Care Discipline referral recommendation: PTReferral reason: gait disturbance, endurance, fall risk, back pain. Instruct home safety Problem: Completed Description: Injury [...] box set up by SN. Visit on 10/18/2012 by Karen Booker RN [[id number]] at 10/18/2012 4:35:44 PM Med planner intern filled for 1 week. Medication box Problem: Completed Description: Medication Fill Medication planner intern s weekly. Visit on 10/18/2012 by Karen Booker RN [[id number]] at 10/18/2012 4:35:44 PM Medications reconciled with hospital discharge med list and patients medications in the home. DC med list has discrepancies. It shows phenytoin dose as 200mg BID when he takes 200mg in AM and 100mg at bedtime. Also it shows fluoxetine as 2 caps daily and he takes 1 daily. Med list also list zocor as 80mg tabs 1/2 tab daily, he has 40mg tabs and takes a whole pill daily. Also ativan listed and he is out of med. I did call Rosalinda at Dr. Mccallum and she verified that he is to take meds as before he was admitted to the hospital so my list is correct and we are to fill his med planner intern as we were before. Only change is pain medication. Skilled assessment Problem: Completed medications Medication Description: [...] Actions and Narratives Yes Type of aid: walker Timed Up and Go (TUG) Test Directions: [...] correct predic tion rate of 90%. Patient dismissed from hospital today. Post Hospital visit done today as patient needs med planner intern filled and he had medication changes. Instructed on high risk medications inc luding side effects and how and when to report problems. documented in this encounter
--- OUTSIDE RECORDS SUMMARY | 2020-03-24 14:29 | XMS REPORT | Encounter Summary ---
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 [employer]ARM EQUIPMENT URIC ACID Routine 10/19/2012 Knee pain 3:34 PM HEAVY DUTY MECHANIC [employer]ARM EQUIPMENT COMPREHENSIVE METABOLIC Routine 10/19/2012 Knee p ain PANEL 3:34 PM HEAVY DUTY MECHANIC FARM EQUIPMENT documented in this encounter Results * URIC ACID (10/19/2012 3:34 PM HEAVY DUTY MECHANIC FARM EQUIPMENT) URIC ACID 3.1 (L)Comment: 3.5 - 7.2 mg/dl [facility] [place] [facility] ACCT#[id number], ,,,, SERVICES - [place] Specimen Blood specimen (specimen) Performing Organization Address City/State/[facility] Ph one Number [facility] CLIA# [id number] [place], [place] [address] [address] LABORATORY SERVICES CLIA# [id number] [place] [address] - [address] * COMPREHENSIVE METABOLIC PANEL (10/19/2012 3:34 PM HEAVY D[employer] MECH[employer]IC [employer]ARM EQUIPMENT) GLUCOSE 226 (H) 70 - 100 mg/dl [facility] [place] BUN 17.0 7 - 20 mg/dl [facility] [place] CREATININE 0.61 (L) 0.67 - 1.17 mg/dl [facility] [place] BUN/CREAT RATIO 27.9 (H) 10 - 20 [facility] [place] GFR 142 >60 ml/min [facility] [place] SODIUM 136 134 - 145 mmol/L [facility] - [place] POTASSIUM 4.0 3.3 - 4.8 mmol/L [facility] - [place] CHLORIDE 99 98 - 107 mmol/L [facility] - [place] CO2 25.9 22 - 31 mmol/L [facility] [place] ANION GAP 15 4 - 20 [facility] CALCIUM 9.0 8.5 - 10.1 mg/dl [facility] - [facility] ALBUMIN 3.3 (L) 3.4 - 5.0 g/dl [facility] TOTAL PROTEIN 7.6 6.4 - 8.2 g/dl [facility] GLOBULIN (CALC) 4.3 [facility] ALBUMIN/GLOBULI 0.8 [facility] N [facility]AT[facility] LABORATORY SERVICES - [facility] BILIRUBIN TOTAL 0.3 <1.1 mg/dl [facility] - [facility] ALKALINE 192 (H) 50 - 136 IU/L [facility]ATORY [facility] - [facility] AST 19 10 - 40 IU/L [facility] - [facility] ALT 51Comment: MERCEDESGAB LYNN 25 - 70 IU/L [facility] ACCT#[id number], ,,,, LABORATORY SERVICES - [place] Specimen Blood specimen (specimen) Performing Organization Address City/State/Zipcode Ph one Number [facility] CLIA# [id number] [place] [address] [address] LABORATORY [facility] CLIA# [id number] [place] [address] [address] * CBC WITH DIFFERENTIAL (10/19/2012 3:34 PM HEAVY D[employer] MECH[employer]IC FARM EQUIPMENT) WBC 9.56 3.0 - 10.4 x10E3 [facility] RBC 4.48 4.15 - 5.75 x10E6 [facility] HEMOGLOBIN 12.6 (L) 13.8 - 17.4 g/dL [facility] HEMATOCRIT 37.9 (L) 38.6 - 49.4 % [facility] MCV 84.5 79 - 100 fL [facility] MCH 28.1 28 - 34 pg [facility] [place] MCHC 33.3 31 - 35 g/dL [facility] RDW 12.9 12.1 - 14.1 % [facility] PLATELETS 478 (H) 148 - 408 x10E3 [facility] MPV 6.6 (L) 7.4 - 10.6 fL [facility] - [place] NEUTROPHILS 74.7 (H) 43 - 73 % [facility] LYMPHOCYTES 16.6 (L) 19 - 47 % [facility] [place] MONOCYTES 6.8 3 - 9 % [facility] [place] EOSINOPHILS 1.5 0 - 6 % [facility] [place] BASOPHILS 0.3 0 - 1.2 % [facility] [place] NEUTROPHIL 7.15 1.3 - 7.6 x10E3 [facility] [place] LYMPHOCYTE 1.59 0.6 - 4.9 x10E3 [facility] [place] MONOCYTE 0.65 0.1 - 0.9 x10E3 [facility] [place] EOSINOPHIL 0.15 0.0 - 0.2 x10E3 [facility] [place] BASOPHILS 0.03Comment: [facility]NN 0 - 0.1 x10E3 [facility] ACCT#[id number], ,,,, LABORATORY SERVICES - [place] Specimen Blood specimen (specimen) Performing Organization Address City/State/Zipcosd Ph one Number [facility] CLIA# [id number] [place] [address] [address] LABORATORY SERVICES CLIA# [id number] [place] [address] - [address] documented in this encounter Visit Diagnoses Diagnosis Knee pain Pain in joint, lower leg documented in this encounter
--- OUTSIDE RECORDS SUMMARY | 2020-03-24 14:29 | XMS REPORT | Encounter Summary ---
Author Author [facility] Organization [facility] Address Unknown Phone Unavailable Care Team Providers Care Electric Welder Name Role Phone Shahram Mccallum MD PCP Unavailable Reason for Visit * Reason Comments Knee Pain Rt Knee Pain/Consult Dr.Par larsen * Eval and Treat (Routine) Referred By Contact Referred To Contact Status Reason Specialty Diagnoses / Procedures Jada Fernandez MD NO ADDRESS ON FILE Jose Bailey MD [address] [place] [address] Closed Orthopedic Diagnoses Surgery Knee pain Knee effusion, right Encounter Details Care Team Description Date Type Department Jose Bailey MD [address] [place] [address] Osteoarthritis of right knee (Primary Dx ) 10/24/[address] [facility] Orthop [address] [address] Social History Date Tobacco Use [...] Signs Reading Time Taken Comments Vital Sign 136/78 10/24/2012 9:07 AM CREDIT CARD SPECIALIST Blood Pressure - - Pulse - - Temperature - - Respiratory Rate - - Oxygen Saturation - - Inhaled Oxygen Concentration 99.8 kg (220 lb) 10/24/2012 9:07 AM CREDIT CARD SPECIALIST Weight 167.6 cm (5' 6") 10/24/2012 9:07 AM CREDIT CARD SPECIALIST Height 35.51 10/24/2012 9:07 AM CREDIT CARD SPECIALIST Body Mass Index documented in this encounter Progress Notes * Jose Bailey MD - 10/24/2012 10:23 AM CREDIT CARD SPECIALIST Chief complaint-right knee pain History of present illness-the patient is a 62-year-old white male who's been co mplaining of right knee pain for approximately one week. He was [facility] from October 11 through the and noted no knee pain at t hat time. He stated when he got home and started walking he started noticing kne e pain and swelling. He does remember getting up and going to the bathroom and t wisting his knee but other than that no previous injuries or prior problems. He saw Dr. Fernandez who referred him here for further evaluation and treatment. Befor e he was hospitalized he was taking Motrin 800 mg 3 times a day for his thumb. S rocco being hospitalized he has not been taking Motrin. He is on no other anti-in flammatories. He stated his knee was red and swollen and that Dr. Fernandez ordered some lab work that they do not know the results. He presently ambulates with a walker. He is taking oxycodone for the pain. He is also on Plavix that he's been on for several years and is taking the Motrin while on the Plavix without any p roblems. Exam of the right lower extremity reveals good motion hip without pain. He has a negative straight leg raise. He has slight limited flexion of the knee and pain with motion. He has mild effusion. He has minimal joint line pain and patellofe moral pain. He has no instability on varus valgus stress. He has a negative Lock man's, anterior and posterior drawer. Bertram's and pivot shift is difficult to assess as he is uncomfortable with flexion beyond 100. He has no calf tendern ess negative Homans. He has good motion of ankle without pain and no instability . No skin changes are noted. His sensation is normal. X-rays were reviewed to his right knee from 10/19. There is no joint space narro wing or loose bodies. There is no evidence of fractures. On the lateral view the re is a small spur off the superior articular aspect of the patella. No weightbe aring views are available or were obtained Impression-early arthritis right knee Plan-I've discussed the above with Mr. Dalton and his daughter. He did have a uri c acid drawn which was not elevated. Explained to him he can still have gout wit h a normal uric acid. He stated the knee was swollen and as well as red so he co uld have had a gouty attack in his knee. He also twisted his knee which could ag gravate some early arthritis. I would recommend treating this for his inflammati on with either nonsteroidal anti-inflammatories or a Celestone injection. He wou ld like to get back on his Motrin due to his thumb pain. But also would like an injection in the knee. He was prescribed Motrin 800 mg #90 with 3 refills. He ca n take one 3 times a day with food. He took this previously with the Plavix with out any problems but he needs to be aware bleeding problems been on both. Procedure-the right knee lateral joint line was prepped with Betadine and alcoho l and then injected with Celestone 12 mg in 4 mL's of 0.25% Marcaine. Area was c leansed with alcohol and a Band-Aid was applied. He can use ice on the area if h e has any increased pain or swelling. He can gradually increase activities as to lerated. He may note initial improvement with the Marcaine and then a Celestone usually starts working at 12-24 hours and may be significant over the next few d ays her gradual improvement over the next few weeks. If he continues with proble ms he may want to consider a Synvisc injection. He'll let us know if it does not improve. IT CARD SPECIALIST documented in this encounter Plan of Treatment Not on filedocumented as of this encounter Visit Diagnoses Diagnosis Osteoarthritis of right knee - Primary Osteoarthrosis, unspecified whether gen eralized or localized, lower leg documented in this encounter
--- OUTSIDE RECORDS SUMMARY | 2020-03-24 14:30 | XMS REPORT | Encounter Summary ---
Author [facility] Address Unknown Phone Unavailable Care Team Providers Care Plant Reliability Engineer Name Role Phone Shahram Mccallum MD PCP Unavailable Reason for Referral * Eval and Treat (Routine) Referred By Contact Referred To Contact Status Reason Specialty Diagnoses / Procedures Shahram Mccallum MD NO ADDRESS ON FILE Closed Diagnoses Back pain Coronary atherosclerosis of unspecified type of vessel, muscogee or graft Unspecified essential hypertension Reason for Visit * Auth/Cert Referred By Contact Referred To Contact Status Reason Specialty Diagnoses / Procedures [facility] S[facility] [address] [place] [address] Closed Inpatient Diagnoses L OW BACK PAIN Encounter Details Care Team Description Date Type Department Shahram Mccallum MD NO ADDRESS ON FILE Back pain 10/14/2012 Hospital [facility] - Encounter [facility] 10/18/2012 [address] [place] [address] Social History Date Tobacco Use [...] Signs Reading Time Taken Comments Vital Sign 157/86 10/18/2012 7:52 AM FARM REPORTER Blood Pressure 96 10/18/2012 7:52 AM FARM REPORTER Pulse 36.2 C (97.1 F) 10/18/2012 7:52 AM FARM REPORTER Temperature 20 10/18/2012 7:52 AM FARM REPORTER Respiratory Rate 98% 10/18/2012 7:52 AM FARM REPORTER Oxygen Saturation - - Inhaled Oxygen Concentration 95.5 kg (210 lb 8 oz) 10/14/2012 11:35 AM FARM REPORTER Weight 170.2 cm (5' 7") 10/14/2012 11:35 AM FARM REPORTER Height 32.97 10/14/2012 11:35 AM FARM REPORTER Body Mass Index documented in this encounter Discharge Summaries * Shahram Mccallum MD - 10/18/2012 11:45 AM FARM REPORTER [address] [place], [place] [address] Patient Name: OLIVERIO TINSLEY CSN: [id number] : 1950 Provider: Shahrma Mccallum MD Admitted: 10/14/2012 Discharged: 10/18/2012 DISCHARGE SUMMARY DISMISSAL DIAGNOSES: 1. Left low back pain, probably multi factor in etiology with history of renal s tones, lithotripsy and possible lumbar disk disease. 2. History of chronic myalgias. 3. Diabetes. 4. History of seizures. 5. History of coronary artery disease, ischemic cardiac disease. 6. History of hypertension. 7. History of chronic obstructive pulmonary disease. HISTORY: This is a 62-year-old gentlemen admitted to the acute care hospital wi th exacerbation of intense left low back pain. In the acute care area he had sh own improvement, but needed ongoing treatment of the back pain, adjustment of hi s medications, stabilization prior to dismissal home, and he was admitted to [facility]. LABORATORY AND X-RAY DATA: Point of service glucoses were followed with high at 228 on the morning of dismissal. It typically runs in the upper 100. CBC: La st WBCs are 7.65, hemoglobin 12.2, hematocrit 36.8, which is stable. Basic chem istries: Sodium at 132 is stable for him. BUN and creatinine are unchanged. G lucose is 243, alkaline phosphatase 198. His liver enzymes had peaked during th e hospital stay at AST of 132, ALT 157. They have returned to normal now. It i s unclear what the etiology of that was. HOSPITAL COURSE: Since his admission to [facility] bed, Oliverio has shown gradual pr ogressive improvement. The pain is diminished by 60%-70%. He has increased his ambulation without exacerbation. Dr. Pena is consulted. That note is on the chart. At this point, the pain is improved and he is being dismissed home to re sume his usual medications. Will also have home health involved for skilled fred sing review, but also for physical therapy. As this evolves over the next sever al weeks, he has an appointment to see Dr. Gastelum for followup of the urinary stones and further definition about treatment of that. It is unclear whether so me of this pain could have been related to lithotripsy. Furthermore, if the darinel n persists, he is going to need epidural steroids based on his CT scan or try fo r more definitive studies with an MRI. This is complicated some by an implant d irene he has. He will be seen on an ongoing basis as an outpatient. This decis ion will be made based on his clinical course. He, however, at the time of this dismissal is markedly improved from his earlier hospitalization. Medications at the time of dismissal include simvastatin, Ambien, Prozac, Lantus, TriCor, Com bivent, urecholine, Flomax, Zetia, Actos, Altace, Flonase, Plavix, Claritin, Nex ium, Imdur, p.r.n. nitroglycerin. He has Ativan, magnesium, aspirin daily, Betimol eyedrops. He has Tylenol for pain. I will confirm that he has also Per cocet or other adequate pain medications at time of dismissal. Dictated by: Shahram Mccallum MD/MEDQ D: [id number] V: [id number] REPORTER * Shahram Mccallum MD - 10/18/2012 8:18 AM FARM REPORTER This discharge note has been dictated. REPORTER documented in this encounter Discharge Instructions * Patient Instructions* Willy Chaves, Rajan - 10/19/2012 1:27 PM FARM REPORTER Electronically signed by Bong El Aoaldair Transcriptions Incoming at 2 1:27 PM FARM REPORTER * Additional Instructions* Marissa Dorado RN - 10/18/2012 Discharge to home Discharge services-Home health nurse to check meds, pain control, PT for gait an d strength, aid for am care FOLLOW-UP Follow up with Shahram Mccallum MD in 10 day(s) on WednesdayOct 28 at 1;[address] Gastelum for f/u renal stone SIGNS AND SYMPTOMS TO REPORT Contact me if you experience any of the following symptoms: any wosening or recu rrance of your problem. ACTIVITY Your activity level is: gradually increase. DIET Your diet is: Diabetic diet (specify calories / restrictions) and heart healthy YOUR HOSPITAL PROBLEMS ADDRESSED INCLUDE Principal Problem: *Back pain Active Problems: Urinary retention LFT elevation Home Instructions on pain, urinary retention, and medications. If you have CHF (Congestive Heart Failure) or (Heart Failure): *Make a follow-up appointment with your doctor within 1 month of discharge. *Weigh yourself on your scales as soon as you get home-this will be your Target Weight *It is important to weigh yourself daily. Report weight gain of 2 or more pound s above your target weight or increased shortness of breath to your physici an. *Signs and symptoms of Heart Failure worsening may include increased shortness o f breath, increased swelling and weight gain. If this occurs, make an appoi ntment with your physician. *Activity: Rest at least twice a day. Balance activity with rest periods. Do no t overexert yourself. *Diet: Eat small, well balanced meals that are low in saturated fat. *Do not smoke and avoid second hand smoke. documented in this encounter Medications at Time [...] needed for Shortness of Breath or Wheezing. 10/24/2012 ibuprofen (MOTRIN) 800 mg Take 800 [...] as of this encounter Progress Notes * Shahram Mccallum MD - 10/24/2012 10:54 AM FARM REPORTER [address] [place], [place] [address] PROGRESS NOTES OLIVERIO TINSLEY [id number] 10/14/12 ADDENDUM TO FINAL DIAGNOSIS: Type 2 diabetes with insulin use, controlled. Dictated by: Shahram Mccallum M.D. DD TD 10/24/12 1053/CAJ/mp PROGRESS NOTES # [id number] REPORTER * Scanning, Aok - 10/21/2012 2:17 PM FARM REPORTER Electronically signed by Interface, Bong Aok Transcriptions Incoming at 2 2:17 PM FARM REPORTER * Aok Scanning, Him - 10/19/2012 2:14 PM FARM REPORTER Electronically signed by Interface, Bong Aok Transcriptions Incoming at 2 2:14 PM FARM REPORTER * Shahram Mccallum MD - 10/17/2012 8:51 AM FARM REPORTER Admit Date: 10/14/2012 Subjective: Principal Problem: *Back pain Active Problems: Urinary retention LFT elevation Patient has complaints of lingering but much better pain. tolerating diet and a ctivity better. still with sanchez but having some awareness of need to void. . Objective: Patient Vitals for the past 8 hrs: BP Temp Temp src Pulse Resp SpO2 10/17/12 0739 142/74 mmHg 97.4 F (36.3 C) Tympanic 83 20 92 % 10/17/12 0638 - - - 89 20 99 % 10/17/12 0630 - - - 92 20 97 % Intake/Output Summary (Last 24 hours) at 10/17/12 0851 Last data filed at 10/17/12 0824 Gross per 24 hour Intake 4460 ml Output 1150 ml Net 3310 ml Results for orders placed during the hospital encounter of 10/14/12 (from the [facility] 24 hour(s)) POC GLUCOSE Component Value Range POC GLUCOSE 211 (*) 70 - 110 mg/dl POC GLUCOSE GRAPH VALUE 211 (*) 70 - 110 mg/dl POC GLUCOSE Component Value Range POC GLUCOSE 204 (*) 70 - 110 mg/dl POC GLUCOSE GRAPH VALUE 204 (*) 70 - 110 mg/dl POC GLUCOSE Component Value Range POC GLUCOSE 270 (*) 70 - 110 mg/dl POC GLUCOSE GRAPH VALUE 270 (*) 70 - 110 mg/dl COMPREHENSIVE METABOLIC PANEL Component Value Range GLUCOSE 243 (*) 70 - 100 mg/dl BUN 12.0 7 - 20 mg/dl CREATININE 0.60 (*) 0.67 - 1.17 mg/dl BUN/CREAT RATIO 20.0 10 - 20 GFR 145 >60 ml/min SODIUM 132 (*) 134 - 145 mmol/L POTASSIUM 3.7 3.3 - 4.8 mmol/L CHLORIDE 102 98 - 107 mmol/L CO2 24.1 22 - 31 mmol/L ANION GAP 10 4 - 20 CALCIUM 8.6 8.5 - 10.1 mg/dl ALBUMIN 2.8 (*) 3.4 - 5.0 g/dl TOTAL PROTEIN 6.5 6.4 - 8.2 g/dl GLOBULIN (CALC) 3.7 ALBUMIN/GLOBULIN RATIO 0.8 BILIRUBIN TOTAL 0.3 <1.1 mg/dl ALKALINE PHOSPHATASE 198 (*) 50 - 136 IU/L AST 20 10 - 40 IU/L ALT 52 25 - 70 IU/L BP 142/74 | Pulse 83 | Temp(Src) 97.4 F (36.3 C) (Tympanic) | Resp 20 | Ht 5 ' 7" (1.702 m) | Wt 210 lb 8 oz (95.482 kg) | BMI 32.97 kg/m2 | SpO2 92% General appearance: alert Back: less tender Reviewed lab Xrays: reviewed Assessment: Principal Problem: *Back pain Active Problems: Urinary retention LFT elevation Plan: See orders. Plan for home tomorrow. Will start appropriate arrangements. Try again to d/c sanchez D/c iv pain meds REPORTER * Ashtyn Ansari RN - 10/16/2012 4:00 PM FARM REPORTER No change in am assessment. Has been up in chair this shift. REPORTER * Aries Fraser MD - 10/16/2012 10:27 AM FARM REPORTER Admit Date: 10/14/2012 Subjective: Patient complains of back pain up to 7-8 on a ten scale. He has apparently not had his home flomax or urecholine, which might explain his recent retention. MAR reviewed. Objective: Patient Vitals for the past 8 hrs: BP Temp Temp src Pulse Resp SpO2 10/16/12 0839 - - - 102 18 - 10/16/12 0829 - - - 101 18 98 % 10/16/12 0750 164/94 mmHg 98 F (36.7 C) Tympanic 97 18 96 % Intake/Output Summary (Last 24 hours) at 10/16/12 1027 Last data filed at 10/16/12 0900 Gross per 24 hour Intake 4040 ml Output 2525 ml Net 1515 ml Lungs: clear to auscultation bilaterally, normal respiratory effort Heart: regular rate and rhythm Abdomen: Soft, non-tender. Bowel sounds normal. No masses Extremities: no cyanosis or edema Results for orders placed during the hospital encounter of 10/14/12 (from the [facility] 24 hour(s)) POC GLUCOSE Component Value Range POC GLUCOSE 287 (*) 70 - 110 mg/dl POC GLUCOSE GRAPH VALUE 287 (*) 70 - 110 mg/dl POC GLUCOSE Component Value Range POC GLUCOSE 194 (*) 70 - 110 mg/dl POC GLUCOSE GRAPH VALUE 194 (*) 70 - 110 mg/dl Assessment: Principal Problem: *Back pain Active Problems: Urinary retention LFT elevation Plan: See orders. Order reconciliation done with multiple home meds re ordered. Continue current care. REPORTER * Shahram Mccallum MD - 10/15/2012 8:38 AM FARM REPORTER Admit Date: 10/14/2012 Subjective: Principal Problem: *Back pain Active Problems: Urinary retention LFT elevation Patient has complaints of cont back pain 5/10 but overall improved. did have fo shahida replace last night and c/o poor ability to ambullate yesterday.. Objective: Patient Vitals for the past 8 hrs: BP Temp Temp src Pulse Resp SpO2 10/15/12 0800 151/93 mmHg 97.1 F (36.2 C) Tympanic 97 20 96 % 10/15/12 0711 - - - 84 16 100 % 10/15/12 0701 - - - 81 18 98 % 10/15/12 0408 123/79 mmHg - - - - - 10/15/12 0344 149/82 mmHg 98.1 F (36.7 C) Tympanic 92 20 97 % Intake/Output Summary (Last 24 hours) at 10/15/12 0838 Last data filed at 10/15/12 0600 Gross per 24 hour Intake 2366.75 ml Output 1500 ml Net 866.75 ml Results for orders placed during the hospital encounter of 10/14/12 (from the [facility] 24 hour(s)) POC GLUCOSE Component Value Range POC GLUCOSE 148 (*) 70 - 110 mg/dl POC GLUCOSE GRAPH VALUE 148 (*) 70 - 110 mg/dl POC GLUCOSE Component Value Range POC GLUCOSE 164 (*) 70 - 110 mg/dl POC GLUCOSE GRAPH VALUE 164 (*) 70 - 110 mg/dl POC GLUCOSE Component Value Range POC GLUCOSE 192 (*) 70 - 110 mg/dl POC GLUCOSE GRAPH VALUE 192 (*) 70 - 110 mg/dl URINALYSIS Component Value Range GLUCOSE UA 30 (*) Negative mg/dl BILIRUBIN UA Negative Negative KETONES UA Negative Negative mg/dl SPECIFIC GRAVITY UA 1.012 1.002 - 1.030 PH UA 7.0 PROTEIN UA Negative Negative mg/dl UROBILINOGEN UA <2.0 0.2 - 1.0 EU/dl NITRITE UA Negative Negative BLOOD UA Moderate (*) Negative LEUKOCYTE ESTERASE UA Negative Negative COLOR UA Yellow CLARITY UA Clear WBC UA 2-5 0 - 5 /HPF RBC UA 25-50 (*) 0 - 2 /HPF MUCOUS, URINE Light EPITHELIAL CELLS, URINE Rare squamous POC GLUCOSE Component Value Range POC GLUCOSE 179 (*) 70 - 110 mg/dl POC GLUCOSE GRAPH VALUE 179 (*) 70 - 110 mg/dl BP 151/93 | Pulse 97 | Temp(Src) 97.1 F (36.2 C) (Tympanic) | Resp 20 | Ht 5 ' 7" (1.702 m) | Wt 210 lb 8 oz (95.482 kg) | BMI 32.97 kg/m2 | SpO2 96% General appearance: alert, appears much improved Less tender Urine clear Xrays: reviewed Assessment: Principal Problem: *Back pain Active Problems: Urinary retention LFT elevation Plan: See orders. Try to reduce meds of pain and increase ambulation REPORTER * Iron Spivey RN - 10/15/2012 1:10 AM FARM REPORTER Patient unable to void since catheter removed. Bladder scanned revealing 606cc r esidual. Self informed. # 16 sanchez catheter inserted without difficulty with return of 600cc milagros urine . UA to lab per protocol. REPORTER * Iron Spivey RN - 10/14/2012 10:27 PM FARM REPORTER Patient complaining of severe pain in lt shoulder unrelieved with oral pain med or IV Fentanyl. Self notified of patient's complaint. New order received for IV Morphine. REPORTER * Karis Jones V., Physical Therapist - 10/14/2012 3:10 PM FARM REPORTER [facility] PHYSICAL THERAPY EVALUATION---PAIN Evaluation Date: 10/14/2012 Start Time: 1445 Stop Time: 1525 Admit Date: 10/14/2012 Diagnosis: LOW BACK PAIN Reason for therapy consult: Pain Ordering Physician: dr. Mccallum History: Past Medical History Diagnosis Date Wrist sprain 08/10 Rt. Contusion, back 08/16/03 Fall Cataract Unspecified disease of respiratory system Glaucoma Asthma Diabetes Seizure disorder Unspecified disorder of lipoid metabolism Coronary artery disease Chronic ischemic heart disease, unspecified Unspecified essential hypertension COPD (chronic obstructive pulmonary disease) Weight Bearing: full weight bearing on BLE Subjective Information provided by: patient, chronic back and neck pain /c radiation down L E. Pt reports neck is the worse. Patient lives alone-has care givers Home Environment: 1-Story / Trailer Prior Level Of Function Bed Mobility: Modified [place] Transfers: Modified [place] Ambulation: Distance household. Level of assist: Modified [place] Device: rolling walker Stairs: NA Prior ADL Function: Modified independent Objective Cognition: Person, Place, Date and Situation Pain: 06/17 at Neck and upper back the most intense pain then decreased in low ba ck and legs Described as: Current Status: Mobility not assessed at this time, consulted for pain only. Sensation: diminished Oxygen: room air ESTIM completed for 30 mins to B paraspinals c3-4 and between shoulder blades T6 -7 B paraspinalis. */10 pain prior to treatment then following- 10 Goals Will control pain to 3-4/10 to allow for mobility SEE PLAN OF CARE FOR DOCUMENTATION OF GOALS Patient has met the need for skilled services. Patient would benefit from PT to decrease pain to allow for independence with mo bility Probable discharge location: Discharge to home Karis Jones, PT Status After Therapy Session Patient in bed, Call light placed within reach of patient and Nursing notified o f patient location REPORTER * Ashtyn Ansari, RN - 10/14/2012 2:50 PM FARM REPORTER 1400- resuming care from Gloria Leger RN, was informed by Gloria Leger RN that during the SWB assessment interview patient told her he wanted to be a DNR. 1420- message left on Dr. Mccallum office VM. 1440- call back received from Dr. Mccallum if patient i s requesting DNR then order can be placed. 1445- this nurse went into to patient room to tell him that DNR order was received. Patient reports to this nurse that he wants resuscitation attempted he just doesn't want to be left alive with ahmet sheldon. Explained to patient that he would not be a DNR. Patient verbalizes that he will remain a full code at this time. Attempted to call Dr. Mccallum who has l eft for the day. 1450- Dr. Fraser administrative liaison paged. 1455- explained above note as wel l as orders for k pad prn per PT request. REPORTER documented in this encounter H&P Notes * Aok Scanning, Him - 10/18/2012 2:43 PM FARM REPORTER Electronically signed by Interface, [facility] Aok Transcriptions Incoming at 2 2:43 PM FARM REPORTER documented in this encounter Miscellaneous Notes * Scanned Form - Scanning, Aok - 10/26/2012 2:23 PM FARM REPORTER Electronically signed by Interface, [facility] Aok Transcriptions Incoming at 2 2:23 PM FARM REPORTER * Scanned Form - Scanning, Ao - 10/26/2012 2:23 PM FARM REPORTER Electronically signed by Interface, [facility] Aok Transcriptions Incoming at 2 2:23 PM FARM REPORTER * Care Plan - Karis Jones V. Physical Therapist - 10/19/2012 4:10 PM FARM REPORTER Problem: Physical Mobility, Impaired (Adult) Goal: Patient-specific goals Pt to report pain in neck 3-02/15 /c mobility Outcome: Completed Date Met: 10/19/12 Inpatient Physical Therapy Discharge Summary Oliverio Tinsley Discharge Date: 10/19/2012 Services Received: Gait Training, Transfer Training, Bed Mobility Training, Ther. Ex, Safety and Mo dalities Discharged to: home Follow-Up Services: Physical Therapy-possible OP Functional Skill Score Ambulation Modified independent /c FWW Transfers Modified independent Bed Mobility Modified independent Stairs Did not perform Goals were Met- no pain at time of d/c HEP: Not given- may benefit from OPPT if pain returns. Recommend the following treatments continue: Gait, Ice/Heat, Modalities and Safety REPORTER * Scanned Form - Aok Scanning, [facility] - 10/19/2012 2:51 PM FARM REPORTER Electronically signed by Sienna, [facility] Aok Transcriptions Incoming at 2 2:51 PM FARM REPORTER * Care Plan - Karen Wilcox Labor Relations Consultant - 10/17/2012 3:00 PM FARM REPORTER Problem: Physical Mobility, Impaired (Adult) Goal: Patient-specific goals Pt to report pain in neck 3-02/15 /c mobility Outcome: Adequate for Discharge Date Met: 10/17/12 PHYSICAL THERAPY TREATMENT NOTE Date of service: 10/17/2012 Time In: 1328 Time Out: 1403 Total Time: 30 min utes for estim and set up Therapy Recommendation for DC Planning: Home Health PT PRECAUTIONS: Fall Risk Weight Bearing: full weight bearing on right lower, left lower Treatment IFC for 25 minutes with intensity set at 21. Electrodes placed at approximately C5 and C6 region on both sides of transverse processes and 2 on rhomboids. Patie nt had minimal pain before treatment and no pain after treatment. Status After Treatment Patient up in chair after treatment Call light placed in reach of patient/family Nursing notified of patient's location after treatment Plan Continue plan of care Electronically signed by Karen Wilcox Labor Relations Consultant at 2011 3:00 PM FARM REPORTER * Scanned Form - Willy Scanning, Him - 10/17/2012 2:25 PM FARM REPORTER Electronically signed by Bong El Transcriptions Incoming at 2 2:25 PM FARM REPORTER * Care Plan - Jo Leger RN - 10/17/2012 1:12 PM FARM REPORTER Problem: General Plan of Care (Adult, Obstetrics) Goal: Plan of Care Review (Adult, Obstetrics) The patient and/or their dental detail representative will communicate an understanding of the ir plan of care. Outcome: Progressing Patient says he is planning to go home tomorrow REPORTER * Care Plan - Jo Leger RN - 10/17/2012 1:12 PM FARM REPORTER Problem: General Plan of Care (Adult, Obstetrics) Goal: Individualization/Patient-Specific Goal (Adult, Obstetrics) The patient and/or their dental detail representative will achieve their patient-specific goal s related to the plan of care. The patient-specific goals include: The patient s ays wants to go home soon Outcome: Progressing Patient is planning to go home tomorrow REPORTER * Care Plan - Karen Wilcox Labor Relations Consultant - 10/17/2012 11:26 AM FARM REPORTER Problem: Physical Mobility, Impaired (Adult) Goal: Patient-specific goals Pt to report pain in neck 3-02/15 mobility Outcome: Progressing PHYSICAL THERAPY TREATMENT NOTE Date of service: 10/17/2012 Time In: 937 Time Out: 952 Total Time: 15 min utes Therapy Recommendation for DC Planning: Home Health PT PRECAUTIONS: Fall Risk Weight Bearing: full weight bearing on right lower, left lower Treatment Functional Mobility on 10/17/2012 Completed transfer training requiring SBA assistance for sit to stand for safet y with fww as device. Patient is up in chair, no bed mobility completed Completed gait training on 10/17/2012 Gait pattern: Patient tends to present with difficulty with coordination on LLE > RLE, patient has more difficulty advancing LLE, no SOB, patient states before coming to the hospital felt like his legs were going to give out. Pt states "Does not feel like that now." Patient completed at SBA Patient ambulated a distance of 150 feet. Using assistive device: rolling walker. Patient ambulates with a cane at home feels more confident in the fww. Patient s tates he would like one when he goes home. No c/o of neck pain this morning. Status After Treatment Patient up in chair after treatment Call light placed in reach of patient/family Nursing notified of patient's location after treatment Plan Continue plan of care Electronically signed by Karen Wilcox, Labor Relations Consultant at 2011 11:26 AM FARM REPORTER * Care Plan - Maren Segovia, Physical Therapist - 10/15/2012 10:31 AM FARM REPORTER Problem: Physical Mobility, Impaired (Adult) Goal: Patient-specific goals Pt to report pain in neck 3-10 /c mobility Outcome: Progressing PHYSICAL THERAPY TREATMENT NOTE Date of service: 10/15/2012 Time In: 0940 Time Out: 1020 Total Time: 30 estim treatment + set-up Therapy Recommendation for DC Planning: Home Health PT PRECAUTIONS: Weight Bearing: full weight bearing Treatment Pain level prior to treatment 4/10. IFC estim applied in quadripolar position with electrodes on cervical paraspinal s and rhomboids. Level 16 x 30 min. Patient reported decreased pain following treatment of 2/10. TENS for home use? Status After Treatment Patient up in chair after treatment Call light placed in reach of patient/family Plan Continue plan of care 10:3 1 AM FARM REPORTER * Care Plan - Jo Leger RN - 10/14/2012 1:16 PM FARM REPORTER Problem: Fall/Trauma/Injury Risk (Adult) Goal: Fall/Trauma/Injury Risk: Absence of Trauma/Injury/Falls Patient will demonstrate the desired outcomes. Outcome: Progressing Is on fall precutions REPORTER * Care Plan - Jo Leger RN - 10/14/2012 1:16 PM FARM REPORTER Problem: General Plan of Care (Adult, Obstetrics) Goal: Plan of Care Review (Adult, Obstetrics) The patient and/or their dental detail representative will communicate an understanding of the ir plan of care. Outcome: Progressing Patient is told he went to swing bed REPORTER documented in this encounter Plan of Treatment Order Schedule Name Type Priority Associated Diag noses Ordered: 10/18/2012 AMB REFERRAL TO HOME CARE Outpatient Routine Back pain Referral Cor athrscl-uns vessel Unspecified essential hypertension documented as of this encounter Procedures Comments Procedure Name Priority Date/Time Associated Diag nosis POC GLUCOSE Routine 10/18/2012 6:10 AM FARM REPORTER POC GLUCOSE Routine 10/17/2012 9:20 PM FARM REPORTER POC GLUCOSE Routine 10/17/2012 4:04 PM FARM REPORTER POC GLUCOSE Routine 10/17/2012 11:21 AM FARM REPORTER URINALYSIS WITH REFLEX Routine 10/17/2012 CULTURE 9:35 AM FARM REPORTER COMPREHENSIVE METABOLIC Stat 10/17/2012 PANEL 5:10 AM FARM REPORTER POC GLUCOSE Routine 10/16/2012 8:32 PM FARM REPORTER POC GLUCOSE Routine 10/16/2012 5:00 PM FARM REPORTER POC GLUCOSE Routine 10/16/2012 11:53 AM FARM REPORTER POC GLUCOSE Routine 10/15/2012 9:51 PM FARM REPORTER POC GLUCOSE Routine 10/15/2012 6:32 PM FARM REPORTER POC GLUCOSE Routine 10/15/2012 6:41 AM FARM REPORTER URINALYSIS W/REFLEX Routine 10/15/2012 MICROSCOPIC 3:00 AM FARM REPORTER POC GLUCOSE Routine 10/14/2012 7:56 PM FARM REPORTER POC GLUCOSE Routine 10/14/2012 4:36 PM FARM REPORTER POC GLUCOSE Routine 10/14/2012 11:40 AM FARM REPORTER documented in this encounter Results * POC GLUCOSE (10/18/2012 6:10 AM FARM REPORTER) POC GLUCOSE 228 (H)Comment: [place], Ft 70 - 110 mg/dl Mariusz Guzman, Point of Care LABORATORY Site,,,, SERVICES - [place] POC GLUCOSE 228 (H) 70 - 110 mg/dl [facility] [employer] [facility] LABORATORY SERVICES - [place] Specimen Performing Organization Address [facility] Ph one Number [facility] LABORATORY SERVICES CLIA# [id number] MARIUSZ JEFFERSON [address] LABORATORY SERVICES CLIA# [id number] [place] [address] * POC GLUCOSE (10/17/2012 9:20 PM FARM REPORTER) POC GLUCOSE 188 (H)Comment: [place] Ft 70 - 110 mg/dl Mariusz Guzman, Point of Care LABORATORY Site,,,, SERVICES - [place] POC GLUCOSE 188 (H) 70 - 110 mg/dl [facility] [employer] LABORATORY SERVICES - [place] Specimen Capillary blood specimen (specimen) Performing Organization Address [facility]/Counts Include 234 Beds At [facility] one [facility] LABORATORY SERVICES CLIA# [id number] [place] [address] LABORATORY SERVICES CLIA# [id number] [place], [place] [address] [place] [address] * POC GLUCOSE (10/17/2012 4:04 PM FARM REPORTER) POC GLUCOSE 196 (H)Comment: Luigi Kaur 70 - 110 mg/dl Mariusz Guzman, Point of Care LABORATORY Site,,,, SERVICES - [place] POC GLUCOSE 196 (H) 70 - 110 mg/dl [facility] [employer] LABORATORY SERVICES - [place] Specimen Capillary blood specimen (specimen) Performing Organization Address City/[facility] Ph one Number [facility] LABORATORY SERVICES CLIA# [id number] [place] [address] LABORATORY SERVICES CLIA# [id number] [place] [address] * POC GLUCOSE (10/17/2012 11:21 AM FARM REPORTER) POC GLUCOSE 186 (H)Comment: [facility], Ft 70 - 110 mg/dl Mariusz Guzman, Point of Care LABORATORY Site,,,, SERVICES - [place] POC GLUCOSE 186 (H) 70 - 110 mg/dl [facility] [employer] LABORATORY SERVICES - [place] Specimen Capillary blood specimen (specimen) Performing Organization Address City/[facility] Ph one Number [facility] LABORATORY SERVICES CLIA# [id number] MARIUSZ JEFFERSON 667 01 - [place] [address] [place] [address] LABORATORY SERVICES CLIA# [id number] MARIUSZ JEFFERSON [address] - [place] [address] [place] [address] * URINALYSIS WITH REFLEX CULTURE (10/17/2012 9:35 AM FARM REPORTER) GLUCOSE UA 100 (H) Negative mg/dl [facility] LABORATORY SERVICES - [place] BILIRUBIN UA Negative Negative [facility] - [place] KETONES UA Negative Negative mg/dl [facility] LABORATORY SERVICES - [place] SPECIFIC 1.006 1.002 - 1.030 [facility] GRAVITY UA LABORATORY SERVICES - [place] PH UA 7.0 [facility] LABORATORY SERVICES - [place] PROTEIN UA 20 (H) Negative mg/dl [facility] LABORATORY SERVICES - [place] UROBILINOGEN UA <2.0 0.2 - 1.0 EU/dl [facility] SERVICES - [place] NITRITE UA Negative Negative [facility] SERVICES - [place] BLOOD UA Small (H) Negative [facility] SERVICES - [place] LEUKOCYTE Negative Negative [facility] [employer] LABORATORY SERVICES - [place] COLOR UA Light Yellow [facility] SERVICES - [place] CLARITY UA Clear [facility] SERVICES - [place] WBC UA 2-5 0 - 5 /HPF [facility] SERVICES - [place] RBC UA Greater than 50 (H) 0 - 2 /HPF [facility] SERVICES - [place] BACTERIA UA Rare Negative /HPF [facility] SERVICES - [place] MUCOUS, URINE Heavy /LPF [facility] SERVICES - [place] EPITHELIAL Rare squamous SUGEY CELLS, URINE LABORATORY SERVICES - [place] HYALINE CAST 0-5Comment: [facility] LYNN Negative /LPF [facility] ACCT#[id number], ,,,, LABORATORY SERVICES - [place] Specimen Urinary catheter specimen (specimen) Narrative Performed At for cath dc [facility] LABORATORY SERVICES - [place] Performing Organization Address City/[facility] Ph one Number [facility] LABORATORY SERVICES CLIA# [id number] MARIUSZ JEFFERSON 667 - [place] [address] [place] [address] LABORATORY SERVICES CLIA# [id number] MARIUSZ JEFFERSON [address] - [place] [address] [place] [address] * COMPREHENSIVE METABOLIC PANEL (10/17/2012 5:10 AM FARM REPORTER) [facility] Signature GLUCOSE 243 (H) 70 - 100 mg/dl [facility] LABORATORY SERVICES - [place] BUN 12.0 7 - 20 mg/dl [facility] LABORATORY SERVICES - [place] CREATININE 0.60 (L) 0.67 - 1.17 mg/dl [facility] LABORATORY SERVICES - [place] BUN/CREAT RATIO 20.0 10 - 20 [facility] LABORATORY SERVICES - [place] GFR 145 >60 ml/min [facility] LABORATORY SERVICES - [place] SODIUM 132 (L) 134 - 145 mmol/L [facility] LABORATORY SERVICES - [place] POTASSIUM 3.7 3.3 - 4.8 mmol/L [facility] LABORATORY SERVICES - [place] CHLORIDE 102 98 - 107 mmol/L [facility] LABORATORY SERVICES - [place] CO2 24.1 22 - 31 mmol/L [facility] LABORATORY SERVICES - [place] ANION GAP 10 4 - 20 [facility] LABORATORY SERVICES - [place] CALCIUM 8.6 8.5 - 10.1 mg/dl [facility] LABORATORY SERVICES - [place] ALBUMIN 2.8 (L) 3.4 - 5.0 g/dl [facility] LABORATORY SERVICES - [place] TOTAL PROTEIN 6.5 6.4 - 8.2 g/dl [facility] LABORATORY SERVICES - [place] GLOBULIN (CALC) 3.7 [facility] LABORATORY SERVICES - [place] ALBUMIN/GLOBULI 0.8 [facility] LABORATORY SERVICES - [place] BILIRUBIN TOTAL 0.3 <1.1 mg/dl [facility] LABORATORY SERVICES - [place] ALKALINE 198 (H) 50 - 136 IU/L [facility] PHOSPHATASE LABORATORY SERVICES - [place] AST 20 10 - 40 IU/L [facility] LABORATORY SERVICES - [place] ALT 52Comment: [facility] LYNN 25 - 70 IU/L Karena GALLARDO ACCT#[id number], ,,,, LABORATORY SERVICES - [place] Specimen Blood specimen (specimen) Performing Organization Address City/State/Zipcode Ph one Number [facility] LABORATORY SERVICES CLIA# [id number] MARIUSZ JEFFERSON 667 - [place] [address] [place] [address] LABORATORY SERVICES CLIA# [id number] [place] [address] * POC GLUCOSE (10/16/2012 8:32 PM FARM REPORTER) POC GLUCOSE 270 (H) 70 - 110 mg/dl [facility] Comment: LABORATORY [facility]-MARIUSZ LYNN SERVICES - [facility][id number], ,,,, [place] [facility], [place], Point of Care Site,,,, POC GLUCOSE 270 (H) 70 - 110 mg/dl [facility] [employer] LABORATORY SERVICES - [place] Specimen Capillary blood specimen (specimen) Performing Organization Address City/[facility] Ph one [facility] LABORATORY SERVICES CLIA# [id number] MARIUSZ JEFFERSON [facility] [phone] LABORATORY SERVICES CLIA# [id number] [place] [address] * POC GLUCOSE (10/16/2012 5:00 PM FARM REPORTER) POC GLUCOSE 204 (H)Comment: Mercedes 70 - 110 mg/dl SUGEY Mariusz Squires, Point of Care LABORATORY Site,,,, SERVICES - [place] POC GLUCOSE 204 (H) 70 - 110 mg/dl [facility] [employer] LABORATORY SERVICES - [place] Specimen Performing Organization Address [facility] Ph one [facility] LABORATORY SERVICES CLIA# [id number] MARIUSZ JEFFERSON [phone] [facility] [place] [address] [place] [address] LABORATORY SERVICES CLIA# [id number] [place] [address] * POC GLUCOSE (10/16/2012 11:53 AM FARM REPORTER) POC GLUCOSE 211 (H)Comment: [facility] Ft 70 - 110 mg/dl Mariusz Guzman, Point of Care LABORATORY Site,,,, SERVICES - [place] POC GLUCOSE 211 (H) 70 - 110 mg/dl SUGEY [employer] LABORATORY SERVICES - [place] Specimen Performing Organization Address City/[facility] Ph one [facility] LABORATORY SERVICES CLIA# [id number] MARIUSZ JEFFERSON [phone] - [facility] [place] [address] [place] [address] LABORATORY SERVICES CLIA# [id number] [place] [address] - [place] [address] [place] [address] * POC GLUCOSE (10/15/2012 9:51 PM FARM REPORTER) POC GLUCOSE 194 (H)Comment: [facility], Ft 70 - 110 mg/dl Mariusz Guzman, Point of Care LABORATORY Site,,,, SERVICES - [place] POC GLUCOSE 194 (H) 70 - 110 mg/dl [employer] LABORATORY SERVICES - [place] Specimen Performing Organization Address City/[facility] Ph one Number [facility] LABORATORY SERVICES CLIA# [id number] MARIUSZ JEFFERSON 66 - [place] [address] [place] [address] LABORATORY SERVICES CLIA# [id number] [place] [address] * POC GLUCOSE (10/15/2012 6:32 PM FARM REPORTER) POC GLUCOSE 287 (H)Comment: eMrcedes, Ft 70 - 110 mg/dl Mariusz Guzman, Point of Care LABORATORY Site,,,, SERVICES - [place] POC GLUCOSE 287 (H) 70 - 110 mg/dl [employer] LABORATORY SERVICES - [place] Specimen Performing Organization Address City/[facility] Ph one Number [facility] LABORATORY SERVICES CLIA# [id number] MARIUSZ JEFFERSON 66 - [place] [address] [place] [address] LABORATORY SERVICES CLIA# [id number] [place] [address] * POC GLUCOSE (10/15/2012 6:41 AM FARM REPORTER) POC GLUCOSE 179 (H)Comment: [place], Ft 70 - 110 mg/dl Mariusz Guzman, Point of Care LABORATORY Site,,,, SERVICES - [place] POC GLUCOSE 179 (H) 70 - 110 mg/dl [facility] [employer] LABORATORY SERVICES - [place] Specimen Capillary blood specimen (specimen) Performing Organization Address City/[facility] Ph one Number [facility] LABORATORY SERVICES CLIA# [id number] MARIUSZ JEFFERSON 667 - [place] [address] [place] [address] LABORATORY SERVICES CLIA# [id number] [place] [address] * URINALYSIS (10/15/2012 3:00 AM FARM REPORTER) GLUCOSE UA 30 (H) Negative mg/dl [facility] LABORATORY SERVICES - [place] BILIRUBIN UA Negative Negative [facility] LABORATORY SERVICES - [place] KETONES UA Negative Negative mg/dl [facility] LABORATORY SERVICES - [place] SPECIFIC 1.012 1.002 - 1.030 [facility] [employer] [facility] LABORATORY SERVICES - [place] PH UA 7.0 [facility] LABORATORY SERVICES - [place] PROTEIN UA Negative Negative mg/dl [facility] LABORATORY SERVICES - [place] UROBILINOGEN UA <2.0 0.2 - 1.0 EU/dl [facility] LABORATORY SERVICES - [place] NITRITE UA Negative Negative [facility] LABORATORY SERVICES - [place] BLOOD UA Moderate (H) Negative [facility] LABORATORY SERVICES - [place] LEUKOCYTE Negative Negative [facility] [employer] LABORATORY SERVICES - [place] COLOR UA Yellow [facility] LABORATORY SERVICES - [place] CLARITY UA Clear [facility] LABORATORY SERVICES - [place] WBC UA 2-5 0 - 5 /HPF [facility] LABORATORY SERVICES - [place] RBC UA 25-50 (H) 0 - 2 /HPF [facility] LABORATORY SERVICES - [place] MUCOUS, URINE Light /LPF [facility] LABORATORY SERVICES - [place] EPITHELIAL Rare squamousComment: [facility] CELLS, URINE [facility]-MARIUSZ LYNN LABORATORY ACCT#[id number], ,,,, SERVICES - [place] Specimen Urine, clean catch - Urine, clean catch Narrative Performed At URINE, CLEAN [facility] LABORATORY SERVICES - [place] Performing Organization Address City/[facility] Ph one Number [facility] LABORATORY SERVICES CLIA# [id number] MARIUSZ JEFFERSON 667 01 - [place] [address] [place] [address] LABORATORY SERVICES CLIA# [id number] [place] [address] - [address] * POC GLUCOSE (10/14/2012 7:56 PM FARM REPORTER) POC GLUCOSE 192 (H)Comment: Luigi Kaur 70 - 110 mg/dl Mariusz Guzman, Point of Care LABORATORY Site,,,, SERVICES - [place] POC GLUCOSE 192 (H) 70 - 110 mg/dl [facility] LABORATORY SERVICES - [place] Specimen Performing Organization Address City/[facility] Ph one Number [facility] LABORATORY SERVICES CLIA# [id number] MARIUSZ JEFFERSON [address] 01 - [address] LABORATORY SERVICES CLIA# [id number] [place] [address] * POC GLUCOSE (10/14/2012 4:36 PM FARM REPORTER) POC GLUCOSE 164 (H)Comment: [facility], Ft 70 - 110 mg/dl SUGEY Rugg[place], Point of Care LABORATORY Site,,,, SERVICES - [place] POC GLUCOSE 164 (H) 70 - 110 mg/dl [facility] [employer] LABORATORY SERVICES - [facility] [place] Specimen Performing Organization Address [facility] Ph one Number [facility] LABORATORY SERVICES CLIA# [id number] [place] RU[place] [facility] [phone] - [address] LABORATORY SERVICES CLIA# [id number] [place] [address] * POC GLUCOSE (10/14/2012 11:40 AM FARM REPORTER) POC GLUCOSE 148 (H)Comment: Mercedes, Ft 70 - 110 mg/dl SUGEY Ruggiero [place], Point of Care LABORATORY Site,,,, SERVICES - [place] POC GLUCOSE 148 (H) 70 - 110 mg/dl SUGEY [employer] LABORATORY SERVICES - [place] Specimen Performing Organization Address [facility] Ph one [facility] LABORATORY SERVICES CLIA# [id number] [place] [address] - [address] LABORATORY SERVICES CLIA# [id number] [place] [address] documented in this encounter Visit Diagnoses Diagnosis Back pain - Primary Backache, unspecified Cor athrscl-uns vessel Coronary atherosclerosis of unspecified type of vessel, muscogee or graft Unspecified essential hypertension LFT elevation Other abnormal blood chemistry documented in this encounter Administered Medications Action Date Dose Rate Site Medication Order MAR Action 10/17/2012 11:36 AM FARM REPORTER 15 mL aluminum-magnesium hydroxide-simethicone Given (MAALOX PLUS ES) oral suspension 15 mL 15 mL, Oral, EVERY 6 HOURS PRN, Startin g 10/17/12 at 1052, Until Tu 2 at 1136, Indigestion, Routine, Sub for Riopan, 10/18/2012 8:34 AM FARM REPORTER 25 mg bethanechol (URECHOLINE) tablet 25 mg Given 25 mg, Oral, FOUR TIMES DAILY, First dose on 10/16/12 at 0930, Until Discontinued, Routine, Previous Med: bethanechol (URECHOLINE) 25 mg Oral tablet - Orig Sig - Take 1 Tab by mouth 4 times daily. , 25 mg Given 10/17/2012 9:24 PM FARM REPORTER 25 mg Given 10/17/2012 5:24 PM FARM REPORTER 10/18/2012 8:33 AM FARM REPORTER 75 mg clopidogrel (PLAVIX) tablet 75 mg Given 75 mg, Oral, DAILY, First dose on 10/16/12 at 0930, Until Discontinued, Routine, Previous Med: clopidogrel (PLAVIX) 75 mg Oral Tab - Orig Sig - Take 1 Tab by mouth daily. , 75 mg Given 10/17/2012 9:02 AM FARM REPORTER 75 mg Given 10/16/2012 10:31 AM FARM REPORTER 10/17/2012 9:28 PM FARM REPORTER 10 mg cyclobenzaprine (FLEXERIL) tablet 10 mg Given 10 mg, Oral, TWO TIMES DAILY PRN, Starting Wed10/14/12 at 1137, Until Wed10/18/12 at 1136, Discomfort, Pain, Spasm, Routine 10 mg Given 10/16/2012 8:35 PM FARM REPORTER 10 mg Given 10/16/2012 10:31 AM FARM REPORTER 10/17/2012 3:16 PM FARM REPORTER 40 mg Abdomen, Left Lower Quadrant enoxaparin (LOVENOX) injection 40 mg Given 40 mg, subCUT, EVERY 24 HOURS, First dose on Wed10/14/12 at 1400, Until Discontinued, Routine 40 mg Abdomen, Right Lower Quadrant Given 10/16/2012 1:43 PM FARM REPORTER 40 mg Abdomen, Right Lower Quadrant Given 10/15/2012 2:44 PM FARM REPORTER 10/17/2012 9:17 PM FARM REPORTER 10 mg ezetimibe (ZETIA) tablet 10 mg Given 10 mg, Oral, DAILY AT BEDTIME, First dose on Wed10/16/12 at 2100, Until Discontinued, Routine, Previous Med: ezetimibe (ZETIA) 10 mg Oral tablet - Orig Sig - Take 1 Tab by mouth daily at bedtime. , 10 mg Given 10/16/2012 8:35 PM FARM REPORTER 10/17/2012 4:07 PM FARM REPORTER 145 mg fenofibrate nanocrystallized (TRICOR) Given tablet 145 mg 145 mg, Oral, DAILY WITH SUPPER, First dose on 10/16/12 at 1700, Until Discontinued, Routine, Previous Med: fenofibrate nanocrystallized (TRICOR) 145 mg Oral tablet - Orig Sig - Take 1 Tab by mouth daily with supper. , 145 mg Given 10/16/2012 5:03 PM FARM REPORTER 10/14/2012 9:39 PM FARM REPORTER 25 mcg fentaNYL PF (SUBLIMAZE) 50 mcg/mL Given injection 25 mcg 25 mcg, IV, EVERY 2 HOURS PRN, Starting 10/14/12 at 1137, Until 10/15/12 at 0836, Pain, Break-Through, Routine 25 mcg Given 10/14/2012 7:53 PM FARM REPORTER 25 mcg Given 10/14/2012 2:31 PM FARM REPORTER 10/16/2012 8:28 PM FARM REPORTER 25 mcg fentaNYL PF (SUBLIMAZE) 50 mcg/mL Given injection 25 mcg 25 mcg, IV, EVERY 4 HOURS PRN, Starting 10/15/12 at 0845, Until 10/17/12 at 0851, Pain, Break-Through, Routine 10/18/2012 8:34 AM FARM REPORTER 40 mg FLUoxetine (PROZAC) capsule 40 mg Given 40 mg, Oral, DAILY, First dose on 10/16/12 at 0930, Until Discontinued, Routine, Previous Med: FLUoxetine (PROZAC) 20 mg Oral capsule - Orig Sig - Take 2 Caps by mouth daily. , 40 mg Given 10/17/2012 9:01 AM FARM REPORTER 40 mg Given 10/16/2012 10:31 AM FARM REPORTER 10/18/2012 8:30 AM FARM REPORTER 2 Sprays fluticasone (FLONASE) 50 mcg/spray nasal Given inhaler 2 [place] 2 [place], Both Nostrils, DAILY, First dose on 10/16/12 at 0930, Until Discontinued, Routine, Previous Med: fluticasone (FLONASE) 50 mcg/spray Both Nostril SpSn - Orig Sig - Administer 2 Sprays in each nostril daily. , 2 Sprays Given 10/17/2012 9:03 AM FARM REPORTER 2 Sprays Given 10/16/2012 10:37 AM FARM REPORTER 10/17/2012 9:21 PM FARM REPORTER 30 Units Arm, Lef t Upper insulin glargine (LANTUS) 100 unit/mL Given injection 30 Units 30 Units, subCUT, DAILY AT BEDTIME, First dose on Wed10/17/12 at 2100, Until Discontinued, Routine 10/18/2012 6:17 AM FARM REPORTER 3 mL ipratropium-albuterol (DUONEB) 0.5 mg-3 Given mg(2.5 mg base)/3 mL inhalation solutio n 3 mL 3 mL, Inhalation, EVERY 8 HOURS RESPIRATORY, First dose on Wed10/14/12 at 1500, Until Discontinued, Routine 3 mL Given 10/17/2012 10:07 PM FARM REPORTER 3 mL Given 10/17/2012 2:07 PM FARM REPORTER 10/18/2012 8:33 AM FARM REPORTER 60 mg isosorbide mononitrate SR 24 hour Given (IMDUR) tablet 60 mg 60 mg, Oral, TWO TIMES DAILY, First dos e on 10/16/12 at 0930, Until Discontinued, Routine, Previous Med: isosorbide mononitrate SR 24 hour (IMDUR) 60 mg Oral tablet - Orig Sig - Take 1 Tab by mouth 2 times daily. , 60 mg Given 10/17/2012 9:17 PM FARM REPORTER 60 mg Given 10/17/2012 9:02 AM FARM REPORTER 10/18/2012 8:34 AM FARM REPORTER 10 mg loratadine (CLARITIN) tablet 10 mg Given 10 mg, Oral, DAILY, First dose on 10/16/12 at 0930, Until Discontinued, Routine, Previous Med: loratadine (CLARITIN) 10 mg Oral tablet - Orig Sig - Take 1 Tab by mouth daily. , 10 mg Given 10/17/2012 9:02 AM FARM REPORTER 10 mg Given 10/16/2012 11:53 AM FARM REPORTER 10/17/2012 12:22 AM FARM REPORTER 1 mg LORazepam (ATIVAN) tablet 1 mg Given 1 mg, Oral, EVERY 6 HOURS PRN, Starting Wed10/14/12 at 1137, Until Wed10/18/12 at 1136, Anxiety, Routine 10/18/2012 8:34 AM FARM REPORTER 400 mg magnesium oxide (MAG-OX) tablet 400 mg Given 400 mg, Oral, THREE TIMES DAILY, First dose on 10/16/12 at 0930, Until Discontinued, Routine, Previous Med: magnesium oxide 250 mg Oral Tab - Orig Sig - Take 1 Tab by mouth 3 times daily . , 400 mg Given 10/17/2012 9:16 PM FARM REPORTER 400 mg Given 10/17/2012 3:16 PM FARM REPORTER 10/15/2012 4:12 AM FARM REPORTER 2 mg morphine 5 mg/mL injection 2 mg Given 2 mg, IV, EVERY 2 HOURS PRN, Starting Wed10/14/12 at 2222, Until 10/15/12 at 0836, Pain, Severe, Routine 2 mg Given 10/15/2012 1:10 AM FARM REPORTER 2 mg Given 10/14/2012 10:33 PM FARM REPORTER 10/16/2012 8:42 PM FARM REPORTER 0.4 mg nitroglycerin (NITROSTAT) tablet 0.4 mg Given 0.4 mg, Sublingual, EVERY 5 MINUTES PRN , Starting Wed10/14/12 at 1137, Until Wed10/18/12 at 1136, Chest Pain, Routine 0.4 mg Given 10/15/2012 3:54 AM FARM REPORTER 10/18/2012 3:37 AM FARM REPORTER 1 Tablet oxyCODONE-acetaminophen (PERCOCET) 5-325 Given mg per tablet 1 Tab 1 Tablet, Oral, EVERY 4 HOURS PRN, Starting Wed10/14/12 at 1137, Until Wed10/18/12 at 1136, Pain, Routine 1 Tablet Given 10/17/2012 9:28 PM FARM REPORTER 1 Tablet Given 10/17/2012 9:08 AM FARM REPORTER 10/18/2012 6:08 AM FARM REPORTER 40 mg pantoprazole (PROTONIX) tablet 40 mg Given 40 mg, Oral, DAILY, First dose on Wed10/16/12 at 1000, Until Discontinued, Routine 40 mg Given 10/17/2012 5:46 AM FARM REPORTER 40 mg Given 10/16/2012 10:32 AM FARM REPORTER 10/18/2012 8:34 AM FARM REPORTER 200 mg phenytoin sodium extended release Given (DILANTIN) capsule 200 mg 200 mg, Oral, EVERY 12 HOURS (BlD), First dose on Wed10/14/12 at 2100, Unti l Discontinued, Routine 200 mg Given 10/17/2012 9:16 PM FARM REPORTER 200 mg Given 10/17/2012 9:02 AM FARM REPORTER 10/18/2012 8:33 AM FARM REPORTER 30 mg pioglitazone (ACTOS) tablet 30 mg Given 30 mg, Oral, DAILY, First dose on Wed10/16/12 at 0930, Until Discontinued, Routine, Previous Med: pioglitazone (ACTOS) 30 mg Oral tablet - Orig Sig - Take 1 Tab by mouth daily. , 30 mg Given 10/17/2012 9:01 AM FARM REPORTER 30 mg Given 10/16/2012 10:31 AM FARM REPORTER 10/18/2012 8:33 AM FARM REPORTER 10 mg ramipril (ALTACE) capsule 10 mg Given 10 mg, Oral, DAILY, First dose on 10/16/12 at 0930, Until Discontinued, Routine, Previous Med: ramipril (ALTACE ) 10 mg Oral capsule - Orig Sig - Take 1 Cap by mouth daily. , 10 mg Given 10/17/2012 9:03 AM FARM REPORTER 10 mg Given 10/16/2012 10:27 AM FARM REPORTER 10/16/2012 8:35 PM FARM REPORTER 1 Tablet sennosides-docusate sodium (SENNA-S) Given 8.6-50 mg per tablet 1 Tab 1 Tablet, Oral, DAILY AT BEDTIME, First dose on Wed10/14/12 at 2100, Until Discontinued, Routine 10/17/2012 9:16 PM FARM REPORTER 40 mg simvastatin (ZOCOR) tablet 40 mg Given 40 mg, Oral, DAILY AT BEDTIME, First dose on Wed10/16/12 at 2100, Until Discontinued, Routine, Previous Med: simvastatin (ZOCOR) 80 mg Oral tablet - Orig Sig - Take 0.5 Tabs by mouth Daily LATE. , 40 mg Given 10/16/2012 8:34 PM FARM REPORTER 10/15/2012 1:11 AM FARM REPORTER 3 mL sodium chloride 0.9 % flush injection 3 Given mL 3 mL, IV, SEE ADMIN INSTRUCTIONS, Starting Wed10/14/12 at 1137, Until Wed10/18/12 at 1136, Routine 3 mL Given 10/14/2012 10:33 PM FARM REPORTER 3 mL Given 10/14/2012 7:53 PM FARM REPORTER 10/17/2012 9:15 PM FARM REPORTER 3 mL sodium chloride 0.9 % flush injection 3 Given mL 3 mL, IV, TWO TIMES DAILY, First dose o n Wed10/17/12 at 0900, Until Discontinued, Routine 3 mL Given 10/17/2012 9:21 AM FARM REPORTER 10/17/2012 7:34 AM FARM REPORTER 75 mL/hr sodium chloride 0.9 % infusion Bag Switched IV, at 75 mL/hr, CONTINUOUS, Starting Wed10/14/12 at 1145, Until Wed10/17/12 at 0851, Routine 75 mL/hr Rate Verify 10/17/2012 6:00 AM FARM REPORTER 75 mL/hr Bag Switched 10/16/2012 5:59 PM FARM REPORTER 10/17/2012 5:23 PM FARM REPORTER 0.4 mg tamsulosin (FLOMAX) capsule 0.4 mg Given 0.4 mg, Oral, DAILY AFTER SUPPER, First dose on 10/16/12 at 1800, Until Discontinued, Routine, Previous Med: tamsulosin (FLOMAX) 0.4 mg Oral capsule - Orig Sig - Take 1 Cap by mouth daily. 30 min. After supper , 0.4 mg Given 10/16/2012 6:00 PM FARM REPORTER 10/18/2012 8:31 AM FARM REPORTER 1 Drop timolol (TIMOPTIC) 0.5 % ophthalmic Given solution 1 Drop 1 Drop, Both Eyes, TWO TIMES DAILY, First dose on 10/16/12 at 0930, Unti l Discontinued, Routine, Previous Med: BETIMOL 0.5 % OP Drop - Orig Sig - Administer 1 Drop in both eyes 2 times daily. , 1 Drop Given 10/17/2012 9:09 AM FARM REPORTER 1 Drop Given 10/16/2012 8:36 PM FARM REPORTER 10/17/2012 9:27 PM FARM REPORTER 10 mg zolpidem (AMBIEN) tablet 10 mg Given 10 mg, Oral, NIGHTLY PRN, Starting Wed10/14/12 at 1137, Until Wed10/18/12 at 1136, Insomnia, Routine 10 mg Given 10/16/2012 8:43 PM FARM REPORTER 10 mg Given 10/15/2012 9:49 PM FARM REPORTER documented in this encounter
--- OUTSIDE RECORDS SUMMARY | 2020-03-24 14:30 | XMS REPORT | Encounter Summary ---
Author Author [facility] Organization [facility] Address Unknown Phone Unavailable Care Team Providers Care Farm Demonstrator Name Role Phone Shahram Mccallum MD PCP Unavailable Reason for Visit * Auth/Cert Referred By Contact Referred To Contact Status Reason Specialty Diagnoses / Procedures [facility] Home Health [facility] [address] [place] [address] Closed Home Health Encounter Details Care Team Description Date Type Department Karen Booker RN SN - MISSED VISIT NO TRAVEL 10/11/2012 [facility] [address] [place] [address] Social History Date Tobacco Use [...] Care Plan Visit Type - SN - MISSED VISIT Discipline - Custodial Status Goals Interventions Problem Descriptio Start Date n Active - 3 problem interventions scheduled/documented in this visit Apprehension/Nervousness Feelings 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 Active - 1 problem intervention scheduled/documented in this visit HH Continuum of Care Monitor/ed 08/03/2012 Disciplines: luis e/giorgi Custodial force medical appointmen t compliance . Identify and facilitate appropriat e discipline referrals. Active - 2 problem interventions scheduled/documented in this visit Injury Prevention - At risk 08/03/2012 Hypertension for Disciplines: injury: Custodial related to internal factors resulting from complicati ons of hypertensi on Active - 4 problem interventions scheduled/documented in this visit Learning/Teaching Needs - Learning 08/03/2012 Diabetes and Disciplines: teaching Custodial needs associated with diagnosis Active - 3 problem interventions scheduled/documented in this visit Learning/Teaching Needs - Lack of 08/03/2012 Hypertension knowledge Disciplines: re: Custodial medical regimen related to controllin g/managing hypertensi on Active - 4 problem interventions scheduled/documented in this visit Medications Management 08/03/2012 Disciplines: of home Custodial medication s Active - 2 problem interventions scheduled/documented in this visit Problems with Activity - Decreased 08/03/2012 COPD tolerance Disciplines: to normal Custodial activities related to dyspnea and fatigue. Variance [...] needed. HH Review Medical Problem: Scheduled Appointments HH Description: Continuum Review medical of [...] box Problem: Scheduled Description: Medication Fill Medication telecommunications network planner s weekly. Skilled assessment Problem: Scheduled [...] medication list as needed. Skilled assessment Problem: Scheduled activity intolerance Problems [...]
--- OUTSIDE RECORDS SUMMARY | 2020-03-24 14:30 | XMS REPORT | Encounter Summary ---
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 mouth daily with supper. 30 Tab 11 albuterol-ipratropium (COMBIVENT) 103-18 mcg/Actuation Inhalation Aero Take 2 Puffs by inhalation every 12 hours. bethanechol (URECHOLINE) 25 mg Oral tablet Take [...] Cap by mouth daily. 30 Cap 11 fluticasone (FLONASE) 50 mcg/spray Both Nostril SpSn Administer 2 Sprays in each nostril daily. 1 Bottle 5 clopidogrel (PLAVIX) 75 mg Oral Tab Take [...] needed for Chest Pain. 25 Tab prn LORazepam (ATIVAN) 1 mg Oral tablet Take 1 Tab by mouth 2 times daily. 60 T ab 2 magnesium oxide 250 mg Oral Tab Take [...] 4 hours as needed for P ain. ibuprofen (MOTRIN) 800 mg Oral tablet Take 800 mg by mouth every 6 hours as needed. cyclobenzaprine (FLEXERIL) 10 mg Oral tablet Take 1 Tab by mouth 2 times conor ly as needed for Discomfort, Pain or Spasm for 10 days. 20 Tab 0 DISCONTD: cyclobenzaprine (FLEXERIL) 10 mg Oral tablet Take 10 mg by mouth e very 12 hours as needed for Spasm. insulin glargine (LANTUS) 100 unit/mL subCUT Soln Inject 30 Units by subcuta neous injection daily. Allergies Allergen Reactions Codeine Unknown Doxycycline Rash Phenobarbital Weakness "relaxes me too much" Piperacillin-Tazobactam Hives and Rash Breaks out Terazosin Other (See Comments) Chest heaviness, chest pain Valium (Diazepam) Other (See Comments) "stops breathing, no pulse" History Substance Use Topics Smoking status: Former Smoker -- 4.0 packs/day for 40 years Types: Cigarettes Quit date: 03/08/1995 Smokeless tobacco: Never Used Alcohol Use: No Family History Problem Relation [...] Healthy Son Healthy Son Review of Systems Behavioral/Psych: positive for depression. Objective: Mental Status Evaluation: Appearance: casually dressed, disheveled and in bed Behavior: cooperative with exam, psychomotor agitation, restless & fidgety and writhing with pain at times Speech: pressured, soft and sometimes slurred Mood: depressed Affect: flat and mood-congruent Thought Process: within normal limits and drowsy Thought Content: appropriate responses to questions asked Sensorium: person, place, situation and time/date Cognition: average for level of education Insight: fair Judgment: fair Assessment: [place] I: Adjustment Disorder with Depressed Mood Major Depression, Recurrent, Severe, without psychotic features supe rimposed on - Dysthymia [place] II: No diagnosis [place] III: Past Medical History Diagnosis Date Wrist sprain 08/10 Rt. Contusion, back 08/16/03 Fall Cataract Unspecified disease of respiratory system Glaucoma Asthma Diabetes Seizure disorder Unspecified disorder of lipoid metabolism Coronary artery disease Chronic ischemic heart disease, unspecified Unspecified essential hypertension COPD (chronic obstructive pulmonary disease) [place] IV: Economic problems, Other psychosocial or environmental problems and hea lth problems [place] V: 41-50 serious symptoms Plan: Patient may benefit from an antidepressant such as Cymbalta to address their sym ptoms of feeling depressed. Patient was previously on an antidepressant, we can not remember the name of it, but says he "weaned" himself off of it. Will monitor patient while in hospital and address symptoms as needed. Patient seems to benefit most from supportive therapy. Not considered to be suicidal at this time. Treatment options and alternatives reviewed with patient and he does agree with the above plan. Thank you for allowing me to participate in the care of this patient. I will fo llow along with you unless otherwise directed. Record Review: extensive for this admission. OW UP REP documented in this encounter ED Notes * Aly Nance RN - 10/11/2012 10:12 AM FOLLOW UP REP PT sleeping upon RN arriving to the room but he continues to rates his pain 08/08 0. PT dose not appear to be in severe pain at this time. PT is very drowsy at this time. OW UP REP * Sybil Henry, CUSTOMER SERVICES COORDINATOR - 10/11/2012 9:49 AM FOLLOW UP REP HISTORY OF PRESENT ILLNESS Oliverio Tinsley, a 62 y.o. male presents to the ED with a Chief Complaint of Ot her HPI Comments: Ongoing lbp into left groin and left leg the last 3 weeks. Onset post stone lithotripsy. Ct lumbar spine showed disk herniation, pt has tried ch iropractor. Saw primary 10/09 given percocet and indocin, again Seen yesterday a m in ed, given dec/depo im and fentanyl, norflex,. No improvement, worsening, T his am pain is severe. pt could not get out of bed, caregivers found pt in dist ress, tried percocet with no improvement. Denies recent falls, injury or overus e The history is provided by the patient. REVIEW OF SYSTEMS Review of Systems Constitutional: Negative for fever and chills. HENT: Negative for congestion. Respiratory: Negative for cough and shortness of breath. Cardiovascular: Negative for chest pain and leg swelling. Gastrointestinal: Negative for vomiting, abdominal pain and constipation. Genitourinary: Negative for difficulty urinating. Musculoskeletal: Positive for back pain and arthralgias. Skin: Negative for rash. Neurological: Negative for dizziness. PAST MEDICAL HISTORY REVIEWED Past Medical History [...] 02/01/2009 COLONOSCOPY performed by MARY MOORE at [facility] OR Hx hernia repair 1988 And age 4 Hx lap cholecystectomy 05/17/07 Hx coronary artery bypass graft Hx heart catheterization 04/10 With angioplasty, 2 stents Pr lap,appendectomy 05/28/2012 APPENDECTOMY LAPAROSCOPIC performed by Mary Moore MD at [facility] OR Pr repair umbilical colleen,4+y/o,reduc 05/28/2012 HERNIA UMBILICAL REPAIR performed by Mary Moore MD at [facility] OR Family History Problem Relation Age of [...] Patient Active Problem List Diagnoses Date Noted Abdominal pain, suprapubic 09/05/2012 Bradycardia 09/05/2012 Urinary retention 09/05/2012 Tendonitis of foot 07/14/2012 Status post laparoscopic appendectomy 05/28/2012 Umbilical hernia without mention of obstruction or gangrene 05/28/2012 MRSA (methicillin resistant staph aureus) culture positive 09/12/2010 Personal History of Colonic Polyps 02/06/2009 Tubular Adenoma 02/05/2009 Hyperlipidemia 11/12/2008 DM w/o complication type I Cor athrscl-uns vessel Unspecified essential hypertension Other [...] by inhalation every 6 hours as needed ALBUTEROL-IPRATROPIUM (COMBIVENT) 103-18 MCG/ACTUATION INHALATION AERO Take 2 Puffs by inhalation every 12 hours. ASPIRIN EC 81 MG ORAL TBEC Take [...] TAB Take 1 Tab by mouth daily. CYCLOBENZAPRINE (FLEXERIL) 10 MG ORAL TABLET Take 1 Tab by mouth 2 times conor ly as needed for Discomfort, Pain or Spasm for 10 days. CYCLOBENZAPRINE (FLEXERIL) 10 MG ORAL TABLET Take 10 mg by mouth every 12 ho urs as needed for Spasm. ESOMEPRAZOLE (NEXIUM) 40 MG ORAL CPDR Take 1 Cap by mouth daily before break fast. EZETIMIBE (ZETIA) 10 MG ORAL TABLET Take 1 Tab by mouth daily at bedtime. FENOFIBRATE NANOCRYSTALLIZED (TRICOR) 145 MG ORAL TABLET Take 1 Tab by mouth daily with supper. FLUOXETINE (PROZAC) 20 MG ORAL CAPSULE Take 2 Caps by mouth daily. FLUTICASONE (FLONASE) 50 MCG/SPRAY BOTH NOSTRIL SPSN Administer 2 Sprays in each nostril daily. IBUPROFEN (MOTRIN) 800 MG ORAL TABLET Take 800 mg by mouth every 6 hours as needed. INDOMETHACIN SR (INDOCIN SR) 75 MG ORAL CAPSULE Take 1 Cap by mouth daily. INSULIN GLARGINE (LANTUS) 100 UNIT/ML SUBCUT SOLN [...] 5 minutes as needed for Chest Pain. OXYCODONE-ACETAMINOPHEN (PERCOCET) 5-325 MG ORAL TABLET Take 1-2 Tabs by henrik th every 6 hours as needed for Pain, Severe for 5 days. PHENYTOIN SODIUM EXTENDED RELEASE (DILANTIN) 100 MG ORAL CAPSULE 2 capsules daily twice per day PIOGLITAZONE (ACTOS) 30 MG ORAL TABLET Take 1 Tab by mouth daily. RAMIPRIL (ALTACE) 10 MG ORAL CAPSULE Take 1 Cap by mouth daily. SIMVASTATIN (ZOCOR) 80 MG ORAL TABLET Take 0.5 Tabs by mouth Daily LATE. TAMSULOSIN (FLOMAX) 0.4 [...] this Encounter PHYSICAL EXAM Initial Vitals BP 10/11/12 0850 124/107 mmHg Pulse 10/11/12 0850 108 Resp 10/11/12 0850 28 Temp 10/11/12 0850 98.9 F (37.2 C) Temp src -- SpO2 10/11/12 0850 97 % Physical Exam Constitutional: He is oriented to person, place, and time. He appears well-devel oped and well-nourished. He appears distressed. HENT: Head: Normocephalic and atraumatic. Mouth/Throat: Oropharynx is clear and moist. Eyes: Pupils are equal, round, and reactive to light. Neck: Normal range of motion. Neck supple. Cardiovascular: Normal rate and regular rhythm. Murmur heard. Pulmonary/Chest: Effort normal and breath sounds normal. Abdominal: Soft. There is no tenderness. Musculoskeletal: He exhibits tenderness. Left hip: He exhibits tenderness. He exhibits no bony tenderness, no swelli ng and no deformity. Lumbar back: He exhibits decreased range of motion, tenderness, pain and sp asm. He exhibits no bony tenderness, no swelling and no edema. Back: Legs: Neurological: He is alert and oriented to person, place, and time. Skin: Skin is warm. He is diaphoretic. Psychiatric: His mood appears anxious. DIAGNOSTICS LAB: Results for orders placed during the hospital encounter of 10/11/12 (from the [facility] 24 hour(s)) URINALYSIS WITH REFLEX CULTURE Component Value Range GLUCOSE UA Negative Negative mg/dl BILIRUBIN UA Negative Negative KETONES UA Negative Negative mg/dl SPECIFIC GRAVITY UA 1.013 1.002 - 1.030 PH UA 6.0 PROTEIN UA Negative Negative mg/dl UROBILINOGEN UA <2.0 0.2 - 1.0 EU/dl NITRITE UA Negative Negative BLOOD UA Negative Negative LEUKOCYTE ESTERASE UA Trace (*) Negative COLOR UA Yellow CLARITY UA Clear WBC UA 5-10 (*) 0 - 5 /HPF RBC UA 2-5 0 - 2 /HPF MUCOUS, URINE Light EPITHELIAL CELLS, URINE Rare squamous HYALINE CAST 0-5 Negative /LPF CBC WITHOUT DIFFERENTIAL Component Value Range WBC 8.84 3.0 - 10.4 x10E3 RBC 4.54 4.15 - 5.75 x10E6 HEMOGLOBIN 13.1 (*) 13.8 - 17.4 g/dL HEMATOCRIT 39.0 38.6 - 49.4 % MCV 85.9 79 - 100 fL MCH 28.9 28 - 34 pg MCHC 33.6 31 - 35 g/dL RDW 13.0 12.1 - 14.1 % PLATELETS 443 (*) 148 - 408 x10E3 MPV 8.1 7.4 - 10.6 fL COMPREHENSIVE METABOLIC PANEL Component Value Range GLUCOSE 180 (*) 70 - 100 mg/dl BUN 25.0 (*) 7 - 20 mg/dl CREATININE 0.85 0.67 - 1.17 mg/dl BUN/CREAT RATIO 29.4 (*) 10 - 20 GFR 97 >60 ml/min SODIUM 133 (*) 134 - 145 mmol/L POTASSIUM 4.2 3.3 - 4.8 mmol/L CHLORIDE 98 98 - 107 mmol/L CO2 25.9 22 - 31 mmol/L ANION GAP 13 4 - 20 CALCIUM 9.3 8.5 - 10.1 mg/dl ALBUMIN 3.9 3.4 - 5.0 g/dl TOTAL PROTEIN 7.9 6.4 - 8.2 g/dl GLOBULIN (CALC) 4.0 ALBUMIN/GLOBULIN RATIO 1.0 BILIRUBIN TOTAL 0.4 <1.1 mg/dl ALKALINE PHOSPHATASE 103 50 - 136 IU/L AST 26 10 - 40 IU/L ALT 34 25 - 70 IU/L RADIOLOGY: XR PELVIS W LAT HIP LT Radiologist Impression: IMPRESSION: No acute abnormality. CT ABDOMEN PELVIS WO CONTRAST Radiologist Impression: IMPRESSION: Multiple stones seen in left kidney. These have an almost staghorn-like configuration. Stone volume is significantly increased over prior exam. EKG: PROCEDURES Procedures Ulloa to dd with 1300 cc urine output on placement. Pt has always refused to go home with catheters in the past. REEVALUATION Improved MEDICAL DECISION MAKING AND PLAN OF CARE Admit, pain mgmt, physical therapy, consult urology when available . New Prescriptions for this Encounter Last vitals BP 132/69 | Pulse 98 | Temp 98.9 F (37.2 C) | Resp 16 | Ht 5' 6 " (1.676 m) | Wt 98.884 kg | BMI 35.19 kg/m2 | SpO2 95% Coding Medications Administered During the ED Stay from 10/11/2012 0847 to 10/11/2012 1 147 Date/Time Order Dose Route Action 10/11/2012 0902 lidocaine (XYLOCAINE) 2 % jelly 10 mL 10 mL Urethral Given 10/11/2012 0902 fentaNYL PF (SUBLIMAZE) 50 mcg/mL injection 100 mcg 100 mcg IV Given 10/11/2012 0923 SODIUM CHLORIDE 0.9 % SYRINGE 10 mL Given 10/11/2012 0908 LORazepam (ATIVAN) 2 mg/mL injection 1 mg 1 mg IV Given 10/11/2012 0922 morphine injection 5 mg 5 mg IV Given 10/11/2012 0929 SODIUM CHLORIDE 0.9 % SYRINGE 10 mL Given 10/11/2012 0930 LORazepam (ATIVAN) 2 mg/mL injection 1 mg 1 mg IV Given 10/11/2012 1133 sodium chloride 0.9 % infusion IV New Bag 10/11/2012 1132 enoxaparin (LOVENOX) injection 40 mg 40 mg subCUT Given CLINICAL IMPRESSION Encounter Diagnoses Name Primary? Low back pain Urinary retention Kidney stones CASE DISCUSSED Dr Mccallum, primary PATIENT COUNSELING Diagnostics reviewed and questions answered. Diagnosis, treatment options and p brianna of care discussed with understanding verbalized. DISPOSITION, EDUCATION AND MEDICATION RECONCILIATION Medications reconciled. See after visit summary for patient education on discha rged patients. OW UP REP documented in this encounter Miscellaneous Notes * Scanned Form - Scanning, Aok - 10/21/2012 2:01 PM FOLLOW UP REP Electronically signed by Interface, [facility] Aok Transcriptions Incoming at 2 2:01 PM FOLLOW UP REP * Scanned Form - Aok Scanning, [facility] - 10/17/2012 2:25 PM FOLLOW UP REP Electronically signed by Interface, [facility] Aok Transcriptions Incoming at 2 2:25 PM FOLLOW UP REP * Scanned Form - Aok Scanning, [facility] - 10/17/2012 2:03 PM FOLLOW UP REP Electronically signed by Interface, [facility] Aok Transcriptions Incoming at 2 2:03 PM FOLLOW UP REP * Scanned Form - Aok Scanning, Him - 10/17/2012 2:03 PM FOLLOW UP REP Electronically signed by Bong El Transcriptions Incoming at 2 2:03 PM FOLLOW UP REP * Care Plan - Walter Stein. - 10/14/2012 10:27 AM FOLLOW UP REP Problem: Anxiety (Adult) Goal: Anxiety: Reduction/Resolution Patient will demonstrate the desired outcomes. Outcome: Progressing Problem:Enzo experiencing anxiety regarding his medical outcomes; i.e., surge ry, finding a surgeon, and rehabbing in a fdc care facility Goal:listen and affirm Enzo as a child of God worthy of God's love, care and protection Intervention(s): -explore Enzo's feelings around his current medical state -shared prayer -encouraged Enzo to stay in the present tense with gratitude Outcomes: OW UP REP * Care Plan - Jo Leger RN - 10/14/2012 10:11 AM FOLLOW UP REP Problem: Physical Mobility, Impaired (Adult) Goal: Patient-specific goals Decrease pain to 2-3/10 to allow for mobility Outcome: Completed Date Met: 10/14/12 Dismissed to swing OW UP REP * Care Plan - Jo Leger RN - 10/14/2012 10:10 AM FOLLOW UP REP Problem: Fall/Trauma/Injury Risk (Adult) Goal: Fall/Trauma/Injury Risk: Absence of Trauma/Injury/Falls Patient will demonstrate the desired outcomes. Outcome: Completed Date Met: 10/14/12 Dismissed to swing OW UP REP * Care Plan - Jo Leger RN - 10/14/2012 10:10 AM FOLLOW UP REP Problem: Pressure Ulcer Risk or Treatment Goal: Prevent/Manage Potential Problems Maintain/improve skin integrity Outcome: Completed Date Met: 10/14/12 Dismissed to swing this am OW UP REP * Care Plan - Jo Leger RN - 10/14/2012 10:10 AM FOLLOW UP REP Problem: Pain, Acute (Adult) Goal: Acute Pain: Acceptable Pain Control/Comfort Level Patient will demonstrate the desired outcomes. Outcome: Completed Date Met: 10/14/12 Dismissed to swing OW UP REP * Care Plan - Jo Leger RN - 10/14/2012 10:09 AM FOLLOW UP REP Problem: General Plan of Care (Adult, Obstetrics) Goal: Plan of Care Review (Adult, Obstetrics) The patient and/or their corporate representative will communicate an understanding of the ir plan of care. Outcome: Completed Date Met: 10/14/12 Dismissed to swing this am OW UP REP * Care Plan - Jo Leger RN - 10/14/2012 10:09 AM FOLLOW UP REP Problem: General Plan of Care (Adult, Obstetrics) Goal: Individualization/Patient-Specific Goal (Adult, Obstetrics) The patient and/or their corporate representative will achieve their patient-specific goal s related to the plan of care. The patient-specific goals include: relieve pain. Outcome: Completed Date Met: 10/14/12 Dismissed to swing today OW UP REP * Care Plan - Laura Peterson, Heavy Equipment Diesel Mechanic - 10/13/2012 2:15 PM FOLLOW UP REP Problem: Physical Mobility, Impaired (Adult) Goal: Patient-specific goals Decrease pain to 2-3/10 to allow for mobility Outcome: Progressing PHYSICAL THERAPY TREATMENT NOTE Date of service: 10/13/2012 Time In: 1327 Time Out: 1355 Total Time: 28 Therapy Recommendation for DC Planning: Retirement/Long-Term PRECAUTIONS: Fall Risk, Oxygen: 2L, IV pole and Catheter Weight Bearing: full weight bearing on BLE Treatment Patient presnt supine with HOB raised slightly, alert, with c/o 8/10 R side of n chandrakant pain and 6/10 L Low back/buttock pain. Patient received premod estim to R Upper trap. and R cervical paraspinals x15 mi nutes. Patient reported 4/10 R sided neck pain when sitting up post estim, but 8/10 R s ided neck pain when lying down post estim. Status After Treatment Patient in bed after treatment Call light placed in reach of patient/family Nursing notified of patient's location after treatment Plan Continue plan of care Electronically signed by Laura Peterson, Heavy Equipment Diesel Mechanic at 012 2:15 PM FOLLOW UP REP * Care Plan - Laura Peterson, Heavy Equipment Diesel Mechanic - 10/13/2012 12:09 PM FOLLOW UP REP Problem: Physical Mobility, Impaired (Adult) Goal: Patient-specific goals Decrease pain to 2-3/10 to allow for mobility Outcome: Progressing PHYSICAL THERAPY TREATMENT NOTE Date of service: 10/13/2012 Time In: 1015 Time Out: 1044 Total Time: 29 Therapy Recommendation for DC Planning: Retirement/Long-Term PRECAUTIONS: Fall Risk, Oxygen: 2L, IV pole and Catheter Weight Bearing: full weight bearing on BLE Treatment Patient present supine with HOB raised, alert, and with c/o 10/10 neck R neck pa in and 5-6/10 L low back/buttock pain. Patient preferred that estim be applied to his neck this time. Patient received estim on premod setting to the R upper trap and cervical parasp inal areas x15 minutes Patient related that R neck pain went down to a 8/10 with treatment. Status After Treatment Patient in bed after treatment Call light placed in reach of patient/family Nursing notified of patient's location after treatment Plan Continue plan of care Electronically signed by Laura Peterson, Heavy Equipment Diesel Mechanic at 012 12:09 PM FOLLOW UP REP * Care Plan - Althea Phipps RN - 10/13/2012 10:44 AM FOLLOW UP REP Problem: General Plan of Care (Adult, Obstetrics) Goal: Plan of Care Review (Adult, Obstetrics) The patient and/or their corporate representative will communicate an understanding of the ir plan of care. Outcome: Progressing Dr Mccallum reviewed with pt the plans for care,this staff reviewed the new order s with pt also,lab work and x-rays and ultra sound ordered and stop the IV finished cloth examiner f or pain,since pt will not wear the capnography OW UP REP * Care Plan - Walter Stein - 10/13/2012 9:21 AM FOLLOW UP REP Problem: Spiritual Distress, Risk/Actual (Adult) Goal: Spiritual Distress, Risk/Actual: Spiritual Well-being Patient will demonstrate the desired outcomes. Outcome: Progressing Problem:Enzo feels like his whole world is falling apart. Enzo feels distant from his God Goal:listen and affirm Enzo as a child of God. Intervention(s): -encouraged Enzo to stay in the present moment and be discriminatory as to wh at he wants to fill his mind; the good thoughts or negative -active listening -shared prayer Outcomes: Enzo finds some peace for his day OW UP REP * Care Plan - Laura Peterson, Heavy Equipment Diesel Mechanic - 10/12/2012 3:40 PM FOLLOW UP REP Problem: Physical Mobility, Impaired (Adult) Goal: Patient-specific goals Decrease pain to 2-3/10 to allow for mobility Outcome: Progressing PHYSICAL THERAPY TREATMENT NOTE Date of service: 10/12/2012 Time In: 1433 Time Out: 1507 Total Time: 34 Therapy Recommendation for DC Planning: Retirement/Long-Term PRECAUTIONS: Fall Risk, IV pole and Catheter Weight Bearing: full weight bearing on BLE Treatment Patient present supine with HOB raised slightly, alert, and with c/o 10/10 neck pain and 7/10 L back and buttock pain. Patient rolled to the R in bed and received IFC to the L piriformis region at le ava 27 intensity x15 minutes and rolled to back for the last 7 minutes of the tr eatment. Patient became ill during the treatment and emesis into emesis ruth. N ursing was notified. Patient stated that pain was still at a 7/10 in the back and buttock and 10/10 i n the neck. Status After Treatment Patient in bed after treatment Call light placed in reach of patient/family Nursing notified of patient's location after treatment Plan Continue plan of care Electronically signed by Laura Peterson, Heavy Equipment Diesel Mechanic at 012 3:40 PM FOLLOW UP REP * Scanned Form - Willy Chaves, Rajan - 10/12/2012 2:18 PM FOLLOW UP REP Electronically signed by Bong El Transcriptions Incoming at 2 2:18 PM FOLLOW UP REP * Care Plan - Althea Phipps RN - 10/12/2012 11:59 AM FOLLOW UP REP Problem: General Plan of Care (Adult, Obstetrics) Goal: Plan of Care Review (Adult, Obstetrics) The patient and/or their corporate representative will communicate an understanding of the ir plan of care. Outcome: Progressing Dr Mccallum talked with pt about the plans for care,this staff reviewed the plans . OW UP REP * Care Plan - Christian Michel, Physical Therapist - 10/11/2012 2:00 PM FOLLOW UP REP Problem: Physical Mobility, Impaired (Adult) Goal: Patient-specific goals Decrease pain to 2-3/10 to allow for mobility Outcome: Progressing [facility] PHYSICAL THERAPY EVALUATION---PAIN Evaluation Date: 10/12/2012 Start Time: 1340 Stop Time: 1350 Admit Date: 10/11/2012 Diagnosis: No admission diagnoses for [facility]. Reason for therapy consult: Pain Ordering Physician: Xena History: Past Medical History Diagnosis Date Wrist sprain 08/10 Rt. Contusion, back 08/16/03 Fall Cataract Unspecified disease of respiratory system Glaucoma Asthma Diabetes Seizure disorder Unspecified disorder of lipoid metabolism Coronary artery disease Chronic ischemic heart disease, unspecified Unspecified essential hypertension COPD (chronic obstructive pulmonary disease) Weight Bearing: full weight bearing on B LE Subjective Information provided by: patient Patient lives alone Home Environment: 1-Story / Trailer Prior Level Of Function Bed Mobility: Modified [place] Transfers: Modified [place] Ambulation: Distance HH. Level of assist: Modified [place] Device: rolling walker Stairs: NA Prior ADL Function: Modified independent Objective Cognition: Person, Place and Situation Pain: 9/10 at low back, mostly L buttocks, no central pain. Described as: Current Status: Mobility not assessed at this time, consulted for pain only. Sensation: diminished Oxygen: room air Goals Will control pain to 2-3/10 to allow for mobility SEE PLAN OF CARE FOR DOCUMENTATION OF GOALS Patient has met the need for skilled services. Patient would benefit from PT to increase functional mobility skills Probable discharge location: Discharge to retirement Christian Michel, PT Status After Therapy Session Patient in bed, Call light placed within reach of patient and Nursing notified o f patient location Attempted traction - towel x 3, no change in symptoms. Attempted sidelying extension, but increased pain. Will do estim to decrease - will follow-up 5 :51 PM FOLLOW UP REP documented in this encounter Plan of Treatment Not on filedocumented as of this encounter Procedures Comments Procedure Name Priority Date/Time Associated Diag nosis CBC WITH DIFFERENTIAL Routine 10/14/2012 5:10 AM FOLLOW UP REP COMPREHENSIVE METABOLIC Routine 10/14/2012 PANEL 5:10 AM FOLLOW UP REP POC GLUCOSE Routine 10/13/2012 10:06 PM FOLLOW UP REP POC GLUCOSE Routine 10/13/2012 4:26 PM FOLLOW UP REP US ABDOMEN COMPLETE Routine 10/13/2012 1:27 PM FOLLOW UP REP POC GLUCOSE Routine 10/13/2012 11:09 AM FOLLOW UP REP XR CERVICAL SPINE 2 OR 3 Routine 10/13/2012 VIEWS 11:01 AM FOLLOW UP REP CBC WITH DIFFERENTIAL Routine 10/13/2012 5:15 AM FOLLOW UP REP COMPREHENSIVE METABOLIC Routine 10/13/2012 PANEL 5:15 AM FOLLOW UP REP POC GLUCOSE Routine 10/12/2012 9:18 PM FOLLOW UP REP POC GLUCOSE Routine 10/12/2012 4:13 PM FOLLOW UP REP POC GLUCOSE Routine 10/12/2012 11:28 AM FOLLOW UP REP POC GLUCOSE Routine 10/12/2012 5:48 AM FOLLOW UP REP MRSA PCR RAPID SCREEN Routine 10/12/2012 12:27 AM FOLLOW UP REP POC GLUCOSE Routine 10/11/2012 8:30 PM FOLLOW UP REP MRSA PCR RAPID SCREEN Stat 10/11/2012 11:00 AM FOLLOW UP REP SEDIMENTATION RATE Routine 10/11/2012 9:53 AM FOLLOW UP REP CBC WITHOUT DIFFERENTIAL Stat 10/11/2012 9:53 AM FOLLOW UP REP MYOGLOBIN Routine 10/11/2012 9:53 AM FOLLOW UP REP MAGNESIUM LEVEL Routine 10/11/2012 9:53 AM FOLLOW UP REP PHENYTOIN LEVEL, TOTAL Routine 10/11/2012 9:53 AM FOLLOW UP REP COMPREHENSIVE METABOLIC Stat 10/11/2012 PANEL 9:53 AM FOLLOW UP REP CT ABDOMEN PELVIS WO Stat 10/11/2012 CONTRAST 9:51 AM FOLLOW UP REP XR PELVIS W LAT HIP LT Stat 10/11/2012 9:45 AM FOLLOW UP REP URINALYSIS WITH REFLEX Stat 10/11/2012 CULTURE 9:00 AM FOLLOW UP REP URINE CULTURE Stat 10/11/2012 9:00 AM FOLLOW UP REP documented in this encounter Results * CBC WITH DIFFERENTIAL (10/14/2012 5:10 AM FOLLOW UP REP) WBC 7.65 3.0 - 10.4 x10E3 [facility] - [facility] [place] RBC 4.25 4.15 - 5.75 x10E6 [facility] LABORATORY SERVICES - [facility] [place] HEMOGLOBIN 12.2 (L) 13.8 - 17.4 g/dL [facility] LABORATORY SERVICES - [facility] [place] HEMATOCRIT 36.8 (L) 38.6 - 49.4 % [facility] LABORATORY SERVICES - [facility] [place] MCV 86.5 79 - 100 fL [facility] LABORATORY SERVICES - [place] MCH 28.7 28 - 34 pg [facility] LABORATORY SERVICES - [place] MCHC 33.2 31 - 35 g/dL [facility] LABORATORY SERVICES - [place] RDW 13.0 12.1 - 14.1 % [facility] LABORATORY SERVICES - [facility] [place] PLATELETS 391 148 - 408 x10E3 [facility] LABORATORY SERVICES - [facility] [place] MPV 7.0 (L) 7.4 - 10.6 fL [facility] LABORATORY SERVICES - [place] NEUTROPHILS 77.9 (H) 43 - 73 % [facility] LABORATORY SERVICES - [facility] [place] LYMPHOCYTES 12.4 (L) 19 - 47 % [facility] LABORATORY SERVICES - [facility] [place] MONOCYTES 7.7 3 - 9 % [facility] - [facility] [place] EOSINOPHILS 1.8 0 - 6 % [facility] LABORATORY SERVICES - [facility] [place] BASOPHILS 0.3 0 - 1.2 % [facility] LABORATORY SERVICES - [facility] [place] NEUTROPHIL 5.96 1.3 - 7.6 x10E3 [facility]OLUTE LABORATORY SERVICES - [place] LYMPHOCYTE 0.94 0.6 - 4.9 x10E3 [facility] - [place] MONOCYTE 0.59 0.1 - 0.9 x10E3 [facility] - [place] EOSINOPHIL 0.14 0.0 - 0.2 x10E3 [facility] - [place] BASOPHILS 0.02Comment: [facility]-MARIUSZ LYNN 0 - 0.1 x10E3 [facility] ABSOLUTE ACCT#[id number], ,,,, LABORATORY SERVICES - [place] Specimen Blood specimen (specimen) Performing Organization Address City/State/Zipcode Ph one Number [facility] LABORATORY SERVICES CLIA# [id number] MARIUSZ JEFFERSON [address] - [place] [address] [place] [address] LABORATORY SERVICES CLIA# [id number] [place] [address] - [place] [address] [place] [address] * COMPREHENSIVE METABOLIC PANEL (10/14/2012 5:10 AM FOLLOW UP REP) [facility] GLUCOSE 176 (H) 70 - 100 mg/dl [facility] LABORATORY SERVICES - [place] BUN 12.0 7 - 20 mg/dl [facility] LABORATORY SERVICES - [facility] [place] CREATININE 0.56 (L) 0.67 - 1.17 mg/dl [facility] LABORATORY SERVICES - [place] BUN/CREAT RATIO 21.4 (H) 10 - 20 [facility] LABORATORY SERVICES - [place] GFR 157 >60 ml/min [facility] LABORATORY SERVICES - [place] SODIUM 133 (L) 134 - 145 mmol/L [facility] LABORATORY SERVICES - [place] POTASSIUM 3.8 3.3 - 4.8 mmol/L [facility] [place] CHLORIDE 96 (L) 98 - 107 mmol/L [facility] [place] CO2 28.0 22 - 31 mmol/L [facility] LABORATORY SERVICES - [place] ANION GAP 13 4 - 20 [facility] LABORATORY SERVICES - [place] CALCIUM 8.9 8.5 - 10.1 mg/dl [facility] LABORATORY SERVICES - [place] ALBUMIN 3.3 (L) 3.4 - 5.0 g/dl [facility] LABORATORY SERVICES - [place] TOTAL PROTEIN 7.1 6.4 - 8.2 g/dl [facility] LABORATORY SERVICES - [place] GLOBULIN (CALC) 3.8 [facility] - [place] ALBUMIN/GLOBULI 0.9 [facility] N RATIO LABORATORY SERVICES - [place] BILIRUBIN TOTAL 0.6 <1.1 mg/dl [facility] LABORATORY SERVICES - [place] ALKALINE 255 (H) 50 - 136 IU/L [facility] SERVICES - [place] AST 63 (H) 10 - 40 IU/L [facility] - [place] ALT 114 (H)Comment: 25 - 70 IU/L [facility]-MARIUS[facility]NN LABORATORY ACCT#[id number], ,,,, SERVICES - [place] Specimen Blood specimen (specimen) Performing Organization Address [facility] one [facility] CLIA# [id number] MARIUSZ JEFFERSON 66 - [place] [address] [place] [address] LABORATORY SERVICES CLIA# [id number] [place] [address] - [facility] [place] [address] [place] [address] * POC GLUCOSE (10/13/2012 10:06 PM FOLLOW UP REP) POC GLUCOSE 129 (H)Comment: Mercedes, Ft 70 - 110 mg/dl Mariusz Guzman, Point of Care LABORATORY Site,,,, SERVICES - [place] POC GLUCOSE 129 (H) 70 - 110 mg/dl [facility] [employer] LABORATORY SERVICES - [place] Specimen Performing Organization Address [facility] one [facility] CLIA# [id number] MARIUSZ JEFFERSON 66 - [place] [address] [place] [address] LABORATORY SERVICES CLIA# [id number] [place] [address] * POC GLUCOSE (10/13/2012 4:26 PM FOLLOW UP REP) POC GLUCOSE 200 (H)Comment: [facility], Ft 70 - 110 mg/dl Mariusz Guzman, Point of Care LABORATORY Site,,,, SERVICES - [place] POC GLUCOSE 200 (H) 70 - 110 mg/dl SUGEY [employer] LABORATORY SERVICES - [place] Specimen Capillary blood specimen (specimen) Performing Organization Address [facility] Ph [facility] CLIA# [id number] MARIUSZ JEFFERSON 667 - [place] [address] [place] [address] LABORATORY SERVICES CLIA# [id number] [place] [address] - [address] * US ABDOMEN COMPLETE (10/13/2012 1:27 PM FOLLOW UP REP) Specimen Impressions Performed At IMPRESSION: Status post cholecystectomy otherwise nor mal abdominal INTERFACE SYSTEM ultrasound Narrative Performed At Abdominal ultrasound: INTERFACE SYSTEM HISTORY: Elevated liver functions Longitudinal and transverse images are obtained through the abdomen. The gallbladder is surgically absent. T here is no intra or extrahepatic duct dilatation with the c ommon duct measuring 4 mm. The visualized portion of the liver, pancre as, and spleen appear normal. The kidneys are of normal size, shape, and contour. No solid or cystic masses are seen. There is no hydronephr osis. The proximal abdominal aorta and distal IVC appear normal. Procedure Note Interface, [facility] Incoming Radiology Results - 10/13/2012 3:34 PM FOLLOW UP REP Abdominal ultrasound: HISTORY: Elevated liver functions Longitudinal and transverse images are obtained through the abdomen. The gallbladder is surgically absent. There is no intra or extrahepatic duct dilatation with the common duct measuring 4 mm. The visualized portion of the liver, pancreas, and spleen appear normal. The kidneys are of normal size, shape, and contour. No solid or cystic masses are seen. There is no hydronephrosis. The proximal abdominal aorta and distal IVC appear normal. IMPRESSION IMPRESSION: Status post cholecystectomy otherwise normal abdominal ultrasound Performing Organization Address [facility] Ph one Number INTERFACE SYSTEM INTERFACE SYSTEM Refer to clinic/hospital department * POC GLUCOSE (10/13/2012 11:09 AM FOLLOW UP REP) POC GLUCOSE 161 (H)Comment: Luigi Kaur 70 - 110 mg/dl [facility], Point of Care LABORATORY Site,,,, SERVICES - [place] POC GLUCOSE 161 (H) 70 - 110 mg/dl [facility] VALUE LABORATORY SERVICES - [place] Specimen Capillary blood specimen (specimen) Performing Organization Address City/State/Zipcode Ph one Number [facility] LABORATORY SERVICES CLIA# [id number] [place], [place] [address] - [address] LABORATORY SERVICES CLIA# [id number] [place] [address] * XR CERVICAL SPINE 2 OR 3 VW (10/13/2012 11:01 AM FOLLOW UP REP) Specimen Impressions Performed At Impression: Degenerative changes. INTERFACE SYS TEM Narrative Performed At Cervical spine INTERFACE SYSTEM History: Neck pain. 3 views are obtained. Findings: There are degenerative lewis ges with osteophytosis. There are no fractures or subluxations sen. No bony masses noted. Prevertebral soft tissues are normal. T here is multilevel disc space narrowing. Procedure Note Interface, [facility] Incoming Radiology Results - 10/13/2012 11:26 AM FOLLOW UP REP Cervical spine History: Neck pain. 3 views are obtained. Findings: There are degenerative changes with osteophytosis. There are no fractures or subluxations sen. No bony masses noted. Prevertebral soft tissues are normal. There is multilevel disc space narrowing. IMPRESSION Impression: Degenerative changes. Performing Organization Address City/State/Zipcode Ph one Number INTERFACE SYSTEM INTERFACE SYSTEM Refer to clinic/hospital department * COMPREHENSIVE METABOLIC PANEL (10/13/2012 5:15 AM FOLLOW UP REP) GLUCOSE 148 (H) 70 - 100 mg/dl [facility] - [place] BUN 22.0 (H) 7 - 20 mg/dl [facility] LABORATORY SERVICES - [place] CREATININE 0.80 0.67 - 1.17 mg/dl [facility] - [place] BUN/CREAT RATIO 27.5 (H) 10 - 20 [facility] - [place] GFR 104 >60 ml/min [facility] - [place] SODIUM 135 134 - 145 mmol/L [facility] - [place] POTASSIUM 3.9 3.3 - 4.8 mmol/L [facility] - [place] CHLORIDE 99 98 - 107 mmol/L [facility] - [place] CO2 30.8 22 - 31 mmol/L [facility] - [place] ANION GAP 9 4 - 20 [facility] - [place] CALCIUM 9.0 8.5 - 10.1 mg/dl [facility] - [place] ALBUMIN 3.3 (L) 3.4 - 5.0 g/dl [facility] - [place] TOTAL PROTEIN 7.2 6.4 - 8.2 g/dl [facility] - [place] GLOBULIN (CALC) 3.9 [facility] - [place] ALBUMIN/GLOBULI 0.8 [facility] N RATIO LABORATORY SERVICES - [place] BILIRUBIN TOTAL 0.5 <1.1 mg/dl [facility] - [place] ALKALINE 278 (H) 50 - 136 IU/L [facility] PHOSPHATASE LABORATORY SERVICES - [place] AST 132 (H) 10 - 40 IU/L [facility] - [place] ALT 157 (H)Comment: 25 - 70 IU/L [facility] LABORATORY ACCT#[id number], ,,,, SERVICES - [place] Specimen Blood specimen (specimen) Performing Organization Address City/State/Zipcode Ph one Number [facility] LABORATORY SERVICES CLIA# [id number] [place] [address] - [place] [address] [place] [address] LABORATORY SERVICES CLIA# [id number] [place] [address] - [place] [address] [place] [address] * CBC WITH DIFFERENTIAL (10/13/2012 5:15 AM FOLLOW UP REP) WBC 6.22 3.0 - 10.4 x10E3 [facility] - [place] RBC 4.19 4.15 - 5.75 x10E6 [facility] - [place] HEMOGLOBIN 11.7 (L) 13.8 - 17.4 g/dL [facility] LABORATORY SERVICES - [place] HEMATOCRIT 36.6 (L) 38.6 - 49.4 % [facility] - [place] MCV 87.1 79 - 100 fL [facility] - [place] MCH 28.0 28 - 34 pg [facility] - [place] MCHC 32.1 31 - 35 g/dL [facility] LABORATORY SERVICES - [place] RDW 13.1 12.1 - 14.1 % [facility] - [place] PLATELETS 375 148 - 408 x10E3 [facility] - [place] MPV 7.0 (L) 7.4 - 10.6 fL [facility] LABORATORY SERVICES - [place] NEUTROPHILS 68.2 43 - 73 % [facility] - [place] LYMPHOCYTES 21.0 19 - 47 % [facility] - [place] MONOCYTES 8.5 3 - 9 % [facility] - [place] EOSINOPHILS 2.1 0 - 6 % [facility] - [place] BASOPHILS 0.2 0 - 1.2 % [facility] - [place] NEUTROPHIL 4.24 1.3 - 7.6 x10E3 [facility] LAB[facility]AT[facility] SERVICES - [place] LYMPHOCYTE 1.30 0.6 - 4.9 x10E3 [facility] - [place] MONOCYTE 0.53 0.1 - 0.9 x10E3 [facility] SERVICES - [place] EOSINOPHIL 0.13 0.0 - 0.2 x10E3 [facility] ABSOLUTE LABORATORY SERVICES - [facility] [place] BASOPHILS 0.01Comment: [facility]NN 0 - 0.1 x10E3 [facility] ABSOLUTE ACCT#[id number], ,,,, LABORATORY SERVICES - [place] Specimen Blood specimen (specimen) Performing Organization Address [facility] Ph one Number [facility] LABORATORY SERVICES CLIA# [id number] MARIUSZ JEFFERSON 667 - [place] [address] [place] [address] LABORATORY SERVICES CLIA# [id number] [place] [address] * POC GLUCOSE (10/12/2012 9:18 PM FOLLOW UP REP) POC GLUCOSE 145 (H)Comment: Mercedes Ft 70 - 110 mg/dl Mariusz Guzman, Point of Care LABORATORY Site,,,, SERVICES - [place] POC GLUCOSE 145 (H) 70 - 110 mg/dl [facility] [employer] LABORATORY SERVICES - [place] Specimen Capillary blood specimen (specimen) Performing Organization Address [facility] one [facility] LABORATORY SERVICES CLIA# [id number] MARIUSZ JEFFERSON [phone] - [facility] [place] [address] [place] [address] LABORATORY SERVICES CLIA# [id number] [place] [address] * POC GLUCOSE (10/12/2012 4:13 PM FOLLOW UP REP) POC GLUCOSE 165 (H)Comment: Mercedes Ft 70 - 110 mg/dl SUGEY Gillis BahmanMariusz, Point of Care LABORATORY Site,,,, SERVICES - [place] POC GLUCOSE 165 (H) 70 - 110 mg/dl [facility] [employer] LABORATORY SERVICES - [facility] [place] Specimen Capillary blood specimen (specimen) Performing Organization Address [facility] Ph one [facility] LABORATORY SERVICES CLIA# [id number] MARIUSZ JEFFERSON 66 - [place] [address] [place] [address] LABORATORY SERVICES CLIA# [id number] [place] [address] * POC GLUCOSE (10/12/2012 11:28 AM FOLLOW UP REP) POC GLUCOSE 161 (H)Comment: Merctirso, Ft 70 - 110 mg/dl SUGEY Gillis Bahman Mariusz, Point of Care LABORATORY Site,,,, SERVICES - [place] POC GLUCOSE 161 (H) 70 - 110 mg/dl [facility] LABORATORY SERVICES - [place] Specimen Capillary blood specimen (specimen) Performing Organization Address [facility] Ph one Number [facility] LABORATORY SERVICES CLIA# [id number] MARIUSZ JEFFERSON 667 - [place] [address] [place] [address] LABORATORY SERVICES CLIA# [id number] [place] [address] [facility] [address] [place] [address] * POC GLUCOSE (10/12/2012 5:48 AM FOLLOW UP REP) POC GLUCOSE 159 (H)Comment: Mercy, Ft 70 - 110 mg/dl Mariusz Guzman, Point of Care LABORATORY Site,,,, SERVICES - [place] POC GLUCOSE 159 (H) 70 - 110 mg/dl [facility] LABORATORY SERVICES - [place] Specimen Performing Organization Address [facility] one [facility] LABORATORY SERVICES CLIA# [id number] MARIUSZ JEFFERSON [facility] [phone] - [place] [address] [place] [address] LABORATORY SERVICES CLIA# [id number] [place] [address] * MRSA PCR RAPID SCREEN (10/12/2012 12:27 AM FOLLOW UP REP) [facility] MRSA PCR RESULT MRSA screen by PCR = [facility] NegativeComment: LABORATORY [facility]-MARIUSZ LYNN SERVICES - [facility]#[id number], ,,,, [place] Specimen Specimen of unknown material (specimen) - Tam Performing Organization Address [facility] Ph one Number [facility] LABORATORY SERVICES CLIA# [id number] MARIUSZ JEFFERSON 66 - [place] [address] [place] [address] LABORATORY SERVICES CLIA# [id number] [place] [address] * POC GLUCOSE (10/11/2012 8:30 PM FOLLOW UP REP) POC GLUCOSE 139 (H)Comment: Merctirso, Ft 70 - 110 mg/dl Mariusz Guzman, Point of Care LABORATORY Site,,,, SERVICES - [place] POC GLUCOSE 139 (H) 70 - 110 mg/dl [facility] LABORATORY SERVICES - [place] Specimen Capillary blood specimen (specimen) Performing Organization Address [facility] LABORATORY SERVICES CLIA# [id number] MARIUSZ JEFFERSON [facility] [phone] - [facility] [place] [address] [place] [address] LABORATORY SERVICES CLIA# [id number] [place] [address] - [address] * MRSA PCR RAPID SCREEN (10/11/2012 11:00 AM FOLLOW UP REP) [facility] MRSA PCR RESULT MRSA SCREEN BY PCR IS [facility] NEGATIVEComment: [facility] [place] SERVICES - [facility] ACCT#[id number], ,,,, [place] Specimen Specimen of unknown material (specimen) - Nares Performing Organization Address [facility] LABORATORY SERVICES CLIA# [id number] [place] [facility] [phone] - [address] LABORATORY SERVICES CLIA# [id number] [place] [address] - [address] * SEDIMENTATION RATE (10/11/2012 9:53 AM FOLLOW UP REP) [facility] ESR 73 (H)Comment: 0 - 15 mm/hr [facility] ([place] LABORATORY RATE) ACCT#[id number], ,,,, SERVICES - [place] Specimen Blood specimen (specimen) Performing Organization Address [facility] LABORATORY SERVICES CLIA# [id number] [place] [facility] [phone] - [address] LABORATORY SERVICES CLIA# [id number] [place] [address] * MYOGLOBIN (10/11/2012 9:53 AM FOLLOW UP REP) [facility] MYOGLOBIN, 46Comment: [facility] 16 - 97 ng/ml M [facility] ACCT#[id number], ,,,, LABORATORY SERVICES - [facility] [place] Specimen Blood specimen (specimen) Performing Organization Address [facility] LABORATORY SERVICES CLIA# [id number] MARIUSZ JEFFERSON 667 - [place] [address] [place] [address] LABORATORY SERVICES CLIA# [id number] [place] [address] * MAGNESIUM LEVEL (10/11/2012 9:53 AM FOLLOW UP REP) MAGNESIUM 1.9Comment: [facility] LYNN 1.8 - 2.4 mg/dl [facility] ACCT#[id number], ,,,, LABORATORY SERVICES - [place] Specimen Blood specimen (specimen) Performing Organization Address [facility] one [employer] [facility] LABORATORY SERVICES CLIA# [id number] MARIUSZ JEFFERSON [phone] - [place] [address] [place] [address] LABORATORY SERVICES CLIA# [id number] [place] [address] * PHENYTOIN LEVEL, TOTAL (10/11/2012 9:53 AM FOLLOW UP REP) PHENYTOIN TOTAL 9.0 (L)Comment: 10 - 20 ug/ml [facility] ACCT#[id number], ,,,, SERVICES - [place] Specimen Blood specimen (specimen) Performing Organization Address [facility] one [facility] LABORATORY SERVICES CLIA# [id number] MARIUSZ JEFFERSON 667 - [place] [address] [place] [address] LABORATORY SERVICES CLIA# [id number] [place] [address] * COMPREHENSIVE METABOLIC PANEL (10/11/2012 9:53 AM FOLLOW UP REP) GLUCOSE 180 (H) 70 - 100 mg/dl [facility] LABORATORY SERVICES - [place] BUN 25.0 (H) 7 - 20 mg/dl [facility] LABORATORY SERVICES - [place] CREATININE 0.85 0.67 - 1.17 mg/dl [facility] LABORATORY SERVICES - [place] BUN/CREAT RATIO 29.4 (H) 10 - 20 [facility] LABORATORY SERVICES - [place] GFR 97 >60 ml/min [facility] LABORATORY SERVICES - [place] SODIUM 133 (L) 134 - 145 mmol/L [facility] LABORATORY SERVICES - [place] POTASSIUM 4.2 3.3 - 4.8 mmol/L [facility] LABORATORY SERVICES - [facility] [place] CHLORIDE 98 98 - 107 mmol/L [facility] LABORATORY SERVICES - [place] CO2 25.9 22 - 31 mmol/L [facility] - [place] ANION GAP 13 4 - 20 [facility] - [facility] CALCIUM 9.3 8.5 - 10.1 mg/dl [facility] - [facility] ALBUMIN 3.9 3.4 - 5.0 g/dl [facility] - [place] TOTAL PROTEIN 7.9 6.4 - 8.2 g/dl [facility] - [place] GLOBULIN (CALC) 4.0 [facility] [place] ALBUMIN/GLOBULI 1.0 [facility] N RATIO LABORATORY SERVICES - [facility] BILIRUBIN TOTAL 0.4 <1.1 mg/dl [facility] LABORATORY SERVICES - [facility] ALKALINE 103 50 - 136 IU/L [facility] PHOSPHATASE LABORATORY SERVICES - [facility] AST 26 10 - 40 IU/L [facility] LABORATORY SERVICES - [place] ALT 34Comment: [facility] 25 - 70 IU/L M ERC ACCT#[id number], ,,,, LABORATORY SERVICES - [place] Specimen Blood specimen (specimen) Performing Organization Address City/State/Zipcoca Ph one Number [facility] LABORATORY [facility] CLIA# [id number] [place] [address] - [address] LABORATORY SERVICES CLIA# [id number] [place] [address] - [address] * CBC WITHOUT DIFFERENTIAL (10/11/2012 9:53 AM FOLLOW UP REP) WBC 8.84 3.0 - 10.4 x10E3 [facility] LABORATORY [facility] [place] RBC 4.54 4.15 - 5.75 x10E6 [facility] LABORATORY SERVICES - [place] HEMOGLOBIN 13.1 (L) 13.8 - 17.4 g/dL [facility] LABORATORY SERVICES - [facility] HEMATOCRIT 39.0 38.6 - 49.4 % [facility] LABORATORY SERVICES - [place] MCV 85.9 79 - 100 fL [facility] LABORATORY SERVICES - [facility] MCH 28.9 28 - 34 pg [facility] LABORATORY SERVICES - [facility] MCHC 33.6 31 - 35 g/dL [facility] LABORATORY SERVICES - [place] RDW 13.0 12.1 - 14.1 % [facility] LABORATORY SERVICES - [place] 443 (H) 148 - 408 x10E3 [facility] LABORATORY SERVICES - [place] MPV 8.1Comment: [facility] LYNN 7.4 - 10.6 fL [facility] ACCT#[id number], ,,,, LABORATORY SERVICES - [place] Specimen Blood specimen (specimen) Performing Organization Address City/State/Zipcode Ph one Number [facility] LABORATORY SERVICES CLIA# [id number] [place] [address] - [place] [address] [place] [address] LABORATORY SERVICES CLIA# [id number] [place] [address] - [address] * CT ABDOMEN PELVIS WO CONTRAST (10/11/2012 9:51 AM FOLLOW UP REP) Specimen Impressions Performed At IMPRESSION: Multiple stones seen in left kidney. Thes e have an almost INTERFACE SYSTEM staghorn-like configuration. Stone volu me is significantly increased over prior exam. Narrative Performed At CT abdomen and pelvis without contrast: INTERFACE SY STEM HISTORY: Flank pain Multiple axial images were obtained thr ough the abdomen and pelvis with no contrast given. Abdomen: Patient is status post median sternotomy. The lung bases appear normal. The liver, spleen, and p ancreas appear normal. The patient is status post cholecystectomy. The right kidney appears normal. There is a large stone seen in the left kidney. This has a configuration of a staghorn calculus ve rsus multiple stones immediately adjacent to each other. T hese are in the renal pelvis and extend into the calyces. On prior CT of August 30 there was a single stone seen in the renal pelvis. This co uld represent stone fragmentation from prior lithotripsy wi th growth of the individual stones. The largest contiguous conglome ration of stones measures 1.8 x 2.2 centimeters. There are multiple sma ller stones present. There is no significant hydronephrosis. There is no hydroureter. The visualized portion of the bowel is normal. Pelvis: The patient appears to be statu s post appendectomy. There is a Ulloa catheter in place in the bladder. No abnormal fluid collections or masses are seen. The visualized port ion of the bowel is normal. Procedure Note Interface, [facility] Incoming Radiology Results - 10/11/2012 10:31 AM FOLLOW UP REP CT abdomen and pelvis without contrast: HISTORY: Flank pain Multiple axial images were obtained through the abdomen and pelvis with no contrast given. Abdomen: Patient is status post median sternotomy. The lung bases appear normal. The liver, spleen, and pancreas appear normal. The patient is status post cholecystectomy. The right kidney appears normal. There is a large stone seen in the left kidney. This has a configuration of a staghorn calculus versus multiple stones immediately adjacent to each other. These are in the renal pelvis and extend into the calyces. On prior CT of August 30 there was a single stone seen in the renal pelvis. This could represent stone fragmentation from prior lithotripsy with growth of the individual stones. The largest contiguous conglomeration of stones measures 1.8 x 2.2 centimeters. There are multiple smal ler stones present. There is no significant hydronephrosis. There is no hydroureter. The visualized portion of the bowel is normal. Pelvis: The patient appears to be status post appendectomy. There is a Ulloa catheter in place in the bladder. No abnormal fluid collections or masses are seen. The visualized portion of the bowel is normal. IMPRESSION IMPRESSION: Multiple stones seen in left kidney. These have an almost staghorn-like configuration. Stone volume is significantly increased over prior exam. Performing Organization Address [facility] one Number INTERFACE SYSTEM INTERFACE SYSTEM Refer to clinic/hospital department * XR PELVIS W LAT HIP LT (10/11/2012 9:45 AM FOLLOW UP REP) Specimen Impressions Performed At IMPRESSION: No acute abnormality. INTERFACE SYSTEM Narrative Performed At AP pelvis and left hip INTERFACE SYSTEM HISTORY: Pain AP pelvis and frog-leg lateral views of the left hip are obtained. There are penile implants in place. No fractures or dislocations are seen. No bony masses are noted. There a re no significant arthritic changes. Procedure Note Interface, [facility] Incoming Radiology Results - 10/11/2012 10:09 AM FOLLOW UP REP AP pelvis and left hip HISTORY: Pain AP pelvis and frog-leg lateral views of the left hip are obtained. There are penile implants in place. No fractures or dislocations are seen. No bony masses are noted. There are no significant arthritic changes. IMPRESSION IMPRESSION: No acute abnormality. Performing Organization Address [facility] one Number INTERFACE SYSTEM INTERFACE SYSTEM Refer to clinic/hospital department * URINE CULTURE (10/11/2012 9:00 AM FOLLOW UP REP) URINE CULTURE NO GROWTH AFTER 2 DAYSComment: [facility] ACCT#[id number], ,,,, SERVICES - [place] Specimen Performing Organization Address City/[facility]/Zipcoca Ph one Number [facility] LABORATORY SERVICES CLIA# [id number] [place] [address] - [place] [address] [place] [address] LABORATORY SERVICES CLIA# [id number] [place] [address] - [address] * URINALYSIS WITH REFLEX CULTURE (10/11/2012 9:00 AM FOLLOW UP REP) GLUCOSE UA Negative Negative mg/dl [facility] LABORATORY SERVICES - [place] BILIRUBIN UA Negative Negative [facility] LABORATORY SERVICES - [place] KETONES UA Negative Negative mg/dl [facility] LABORATORY SERVICES - [place] SPECIFIC 1.013 1.002 - 1.030 [facility] GRAVITY UA LABORATORY SERVICES - [place] PH UA 6.0 [facility] LABORATORY SERVICES - [place] PROTEIN UA Negative Negative mg/dl [facility] LABORATORY SERVICES - [place] UROBILINOGEN UA <2.0 0.2 - 1.0 EU/dl [facility] LABORATORY SERVICES - [place] NITRITE UA Negative Negative [facility] LABORATORY SERVICES - [place] BLOOD UA Negative Negative [facility] LABORATORY SERVICES - [place] LEUKOCYTE Trace (H) Negative [facility] ESTERASE UA LABORATORY SERVICES - [place] COLOR UA Yellow [facility] [place] CLARITY UA Clear [facility] LABORATORY SERVICES - [place] WBC UA 5-10 (H) 0 - 5 /HPF [facility] LABORATORY SERVICES - [place] RBC UA 2-5 0 - 2 /HPF [facility] LABORATORY SERVICES - [place] MUCOUS, URINE Light /LPF [facility] - [place] EPITHELIAL Rare squamous [facility] CELLS, URINE LABORATORY SERVICES - [place] HYALINE CAST 0-5Comment: [facility] Negative /LPF [facility] ACCT#[id number], ,,,, LABORATORY SERVICES - [place] Specimen Urine specimen (specimen) Performing Organization Address City/[facility]/Zipmsde Ph one Number [facility] LABORATORY SERVICES CLIA# [id number] [place] [address] - [place] [address] [place] [address] LABORATORY SERVICES CLIA# [id number] [place] [address] - [place] [address] documented in this encounter Visit Diagnoses Diagnosis Back pain - Primary Backache, unspecified Low back pain Lumbago Urinary retention Retention of urine, unspecified Kidney stones Calculus of kidney Renal stone Calculus of kidney LFT elevation Other abnormal blood chemistry documented in this encounter Administered Medications Action Date Dose Rate Site Medication Order MAR Action 10/13/2012 5:25 PM FOLLOW UP REP 10 mg cyclobenzaprine (FLEXERIL) tablet 10 mg Given 10 mg, Oral, TWO TIMES DAILY PRN, Starting Wed10/11/12 at 1156, Until Wed10/14/12 at 1114, Discomfort, Pain, Spasm, Routine 10/13/2012 1:43 PM FOLLOW UP REP 40 mg Abdomen, Left Lower Quadrant enoxaparin (LOVENOX) injection 40 mg Given 40 mg, subCUT, EVERY 24 HOURS, First dose on Wed10/11/12 at 1115, Until Discontinued, Routine 40 mg Abdomen, Right Lower Quadrant Given 10/12/2012 3:00 PM FOLLOW UP REP 40 mg Abdominal Tissue Given 10/11/2012 11:32 AM FOLLOW UP REP FENTANYL (PF) 50 MCG/ML INJECTION 1 dose, Starting Wed10/11/12 at 0853, Until Wed10/11/12 at 0857, [place] OMNICELL: cabinet override, 10/11/2012 9:02 AM FOLLOW UP REP 100 mcg fentaNYL PF (SUBLIMAZE) 50 mcg/mL Given injection 100 mcg 100 mcg, IV, ONE TIME ONLY, 1 dose, Wed10/11/12 at 0900, Stat fentaNYL PF (SUBLIMAZE) 50 mcg/mL injection 50 mcg 50 mcg, IV, ONE TIME ONLY, 1 dose, Wed10/11/12 at 1000, Stat 10/14/2012 6:36 AM FOLLOW UP REP 3 mL ipratropium-albuterol (DUONEB) 0.5 mg-3 Given mg(2.5 mg base)/3 mL inhalation solutio n 3 mL 3 mL, Inhalation, EVERY 8 HOURS RESPIRATORY, First dose on Wed10/11/12 at 1300, Until Discontinued, Routine 3 mL Given 10/13/2012 9:55 PM FOLLOW UP REP 3 mL Given 10/13/2012 2:03 PM FOLLOW UP REP 10/12/2012 7:55 PM FOLLOW UP REP 15 mg ketorolac (TORADOL) injection 15 mg Given 15 mg, IV, EVERY 6 HOURS PRN, Starting Wed10/11/12 at 1156, Until Wed10/12/12 at 2355, Pain, Routine 10/11/2012 9:02 AM FOLLOW UP REP 10 mL lidocaine (XYLOCAINE) 2 % jelly 10 mL Given 10 mL, Urethral, ONE TIME ONLY, 1 dose, 10/11/12 at 0900, Routine 10/13/2012 6:19 AM FOLLOW UP REP 0.5 mg LORazepam (ATIVAN) 2 mg/mL injection 0.5 Given mg 0.5 mg, IV, EVERY 4 HOURS PRN, Starting Tu10/11/12 at 1156, Until Wed10/14/12 at 1114, Anxiety, Other (See Comment), spasms, Routine 0.5 mg Given 10/12/2012 8:52 PM FOLLOW UP REP 10/11/2012 9:08 AM FOLLOW UP REP 1 mg LORazepam (ATIVAN) 2 mg/mL injection 1 Given mg 1 mg, IV, ONE TIME ONLY, 1 dose, Tu10/11/12 at 0915, Routine 10/11/2012 9:30 AM FOLLOW UP REP 1 mg LORazepam (ATIVAN) 2 mg/mL injection 1 Given mg 1 mg, IV, ONE TIME ONLY, 1 dose, Wed10/11/12 at 0930, Routine LORAZEPAM 2 MG/ML INJECTION 1 dose, Starting Wed10/11/12 at 0904, Until Wed10/11/12 at 0908, [place] OMNICELL: cabinet override, 10/14/2012 7:37 AM FOLLOW UP REP 2 mg morphine 5 mg/mL injection 2 mg Given 2 mg, IV, EVERY 2 HOURS PRN, Starting Nancy 10/13/12 at 1022, Until Wed10/14/12 at 1114, Pain, Routine 2 mg Given 10/14/2012 4:23 AM FOLLOW UP REP 2 mg Given 10/13/2012 10:21 PM FOLLOW UP REP 10/12/2012 11:35 PM FOLLOW UP REP 150 mg mL/hr morphine in NS 150 mg/30 mL PROPERTY INSPECTOR Bag Switched IV, TITRATE, Starting 10/11/12 at 1200, Until Nancy 10/13/12 at 1023, Routin e 150 mg mL/hr New Bag 10/12/2012 8:20 AM FOLLOW UP REP 150 mg mL/hr New Bag 10/11/2012 2:22 PM FOLLOW UP REP 10/11/2012 9:22 AM FOLLOW UP REP 5 mg morphine injection 5 mg Given 5 mg, IV, ONE TIME ONLY, 1 dose, Wed10/11/12 at 0930, Routine nitroglycerin (NITROSTAT) tablet 0.4 mg 0.4 mg, Sublingual, EVERY 5 MINUTES PRN , Starting Nancy 10/13/12 at 1611, Until Wed10/14/12 at 1114, Chest Pain, Routine 10/14/2012 4:24 AM FOLLOW UP REP 4 mg ondansetron (ZOFRAN) 4 mg/2 mL injection Given 4 mg 4 mg, IV, EVERY 6 HOURS PRN, Starting Wed10/11/12 at 1156, Until Wed10/14/12 at 1114, Nausea/Emesis, Routine 4 mg Given 10/13/2012 11:12 AM FOLLOW UP REP 4 mg Given 10/12/2012 2:58 PM FOLLOW UP REP 10/11/2012 2:32 PM FOLLOW UP REP 40 mg pantoprazole (PROTONIX) tablet 40 mg Given 40 mg, Oral, DAILY BEFORE BREAKFAST, First dose on Wed10/11/12 at 1200, Unti l Discontinued, Routine, Previous Med: esomeprazole (NEXIUM) 40 mg Oral CpDR - Orig Sig - Take 1 Cap by mouth daily before breakfast. , 10/14/2012 9:15 AM FOLLOW UP REP 200 mg phenytoin sodium extended release Given (DILANTIN) capsule 200 mg 200 mg, Oral, EVERY 12 HOURS (BlD), First dose on Wed10/12/12 at 2100, Unti l Discontinued, Routine 200 mg Given 10/13/2012 10:07 PM FOLLOW UP REP 200 mg Given 10/13/2012 8:43 AM FOLLOW UP REP 10/13/2012 10:08 PM FOLLOW UP REP 1 Tablet sennosides-docusate sodium (SENNA-S) Given 8.6-50 mg per tablet 1 Tab 1 Tablet, Oral, DAILY AT BEDTIME, First dose on Wed10/11/12 at 2100, Until Discontinued, Routine 1 Tablet Given 10/12/2012 8:48 PM FOLLOW UP REP 1 Tablet Given 10/11/2012 8:22 PM FOLLOW UP REP 10/13/2012 10:21 PM FOLLOW UP REP 3 mL sodium chloride 0.9 % flush injection 3 Given mL 3 mL, IV, SEE ADMIN INSTRUCTIONS, Starting Wed10/11/12 at 1119, Until Wed10/14/12 at 1114, Routine 3 mL Given 10/13/2012 8:13 PM FOLLOW UP REP 10/14/2012 4:13 AM FOLLOW UP REP 75 mL/hr sodium chloride 0.9 % infusion Bag Switched IV, at 75 mL/hr, CONTINUOUS, Starting Wed10/11/12 at 1115, Until Wed10/14/12 at 1114, Routine 75 mL/hr Bag Switched 10/13/2012 3:01 PM FOLLOW UP REP 75 mL/hr Rate Verify 10/13/2012 6:00 AM FOLLOW UP REP 10/11/2012 9:23 AM FOLLOW UP REP 10 mL SODIUM CHLORIDE 0.9 % SYRINGE Given 1 dose, Starting Wed10/11/12 at 0858, Until Wed10/11/12 at 0923, [place] SOSA : cabinet override, 10/11/2012 9:29 AM FOLLOW UP REP 10 mL SODIUM CHLORIDE 0.9 % SYRINGE Given 1 dose, Starting Wed10/11/12 at 0921, Until Wed10/11/12 at 0929, [place] SOSA : cabinet override, 10/11/2012 9:30 AM FOLLOW UP REP mL SODIUM CHLORIDE 0.9 % SYRINGE Admin by 1 dose, Starting Wed10/11/12 at 0927, Another Until Wed10/11/12 at 0930, [place] SOSA: Clinician cabinet override, (Comment) 10/11/2012 10:00 AM FOLLOW UP REP mL SODIUM CHLORIDE 0.9 % SYRINGE Admin by 1 dose, Starting Wed10/11/12 at 0951, Another Until Wed10/11/12 at 1000, [place] SOSA: Clinician cabinet override, (Comment) 10/13/2012 10:12 PM FOLLOW UP REP 10 mg zolpidem (AMBIEN) tablet 10 mg Given 10 mg, Oral, NIGHTLY PRN, Starting Wed10/11/12 at 1156, Until Wed10/14/12 at 1114, Insomnia, Routine 10 mg Given 10/12/2012 8:50 PM FOLLOW UP REP documented in this encounter
--- OUTSIDE RECORDS SUMMARY | 2020-03-24 14:30 | XMS REPORT | Encounter Summary ---
Author Author [facility] Organization [facility] Address Unknown Phone Unavailable Care Team Providers Care Csr Name Role Phone Shahram Mccallum MD PCP Unavailable Reason for Visit * Auth/Cert Referred By Contact Referred To Contact Status Reason Specialty Diagnoses / Procedures [facility] Home Health [facility] [address] [place] [address] Closed Home Health Encounter Details Care Team Description Date Type Department Karen Booker RN SN - OASIS TRANSFER W/OUT DC 10/12[facility] [address] [place] [address] Social History Date Tobacco Use [...] - OASIS TRANS W/OUT DC Discipline - Long Term Status Goals Interventions [...] box Problem: Scheduled Description: Medication Fill Medication search planner s weekly. Skilled assessment Problem: Scheduled [...]
--- OUTSIDE RECORDS SUMMARY | 2020-03-24 14:31 | XMS REPORT | Encounter Summary ---
Author Author [facility] Organization [facility] Address Unknown Phone Unavailable Care Team Providers Care Gambling Counsellor Name Role Phone Shahram Mccallum MD PCP Unavailable Reason for Visit * Auth/Cert Referred By Contact Referred To Contact Status Reason Specialty Diagnoses / Procedures [facility] [address] [place] [address] Closed Home Health Encounter Details Care Team Description Date Type Department Bree Reed RN SN - HOME VISIT 09/20/2012 Home Care Visit [facility] [address] [place] [address] Social History Date Tobacco Use [...] Signs Reading Time Taken Comments Vital Sign 136/76 09/20/2012 10:00 PM [employer] Blood Pressure - - Pulse 36.8 C (98.3 F) 09/20/2012 10:00 PM [employer] Temperature 18 09/20/2012 10:00 PM [employer]ERSON Respiratory Rate - - Oxygen Saturation - [...] 12/05/2012 - COPD of dread Disciplines: and Longterm apprehensi on Active - 3 problem interventions scheduled/documented in this visit Breathing Problems - COPD Inadequate 08/03/2012 Disciplines: breathing Longterm pattern Active - 3 problem interventions scheduled/documented in this visit Failure to Comply With Behaviors 08/03/2012 Plan of Care of Disciplines: patient/ca Longterm regiver that do not follow the plan of care. Active - 1 problem intervention scheduled/documented in this visit Continuum of Care Monitor/ed 08/03/2012 Disciplines: ucate/rein Longterm force medical appointmen t compliance . Identify and facilitate appropriat e discipline referrals. Active - 2 problem interventions scheduled/documented in this visit Injury Prevention - At risk 08/03/2012 Hypertension for Disciplines: injury: Longterm related to internal factors resulting from complicati ons of hypertensi on Active - 4 problem interventions scheduled/documented in this visit Learning/Teaching Needs - Learning 08/03/2012 Diabetes and Disciplines: teaching Longterm needs associated with diagnosis Active - 3 problem interventions scheduled/documented in this visit Learning/Teaching Needs - Lack of 08/03/2012 Hypertension knowledge Disciplines: re: Longterm medical regimen related to controllin g/managing hypertensi on Active - 4 problem interventions scheduled/documented in this visit Medications Management 08/03/2012 Disciplines: of home Longterm medication s Active - 2 problem interventions scheduled/documented in this visit Problems with Activity - Decreased 08/03/2012 COPD tolerance Disciplines: to normal Longterm activities related to dyspnea and fatigue. Variance [...] box Problem: Completed Description: Medication Fill Medication discharge planner s weekly. Skilled assessment Problem: Completed [...] Health Visit - Actions and Narratives Nurse completed teaching on chest pain management including taking NTG x3 q5mins. If not resolved needs to seek emergency treatment. NTG expires 6 months after seal is broken. Monitor type of chest pain--frequency, characteristics of pain. Pt. verbalizes instrudtions. Pt. is scheduled for a lithotripsy [facility]. Pt. verbalizes pre surgery instructions. He has written instructions for pre ops. documented in this encounter
--- OUTSIDE RECORDS SUMMARY | 2020-03-24 14:31 | XMS REPORT | Encounter Summary ---
Author Author [facility] Organization [facility] Address Unknown Phone Unavailable Care Team Providers Care [place]rop [place] Hand Name Role Phone Shahram Mccallum MD PCP Unavailable Reason for Referral * Eval and Treat (Routine) Referred By Contact Referred To Contact Status Reason Specialty Diagnoses / Procedures Shahram Mccallum MD NO ADDRESS ON FILE Closed Diagnoses Back pain with radiation Reason for Visit * Reason Comments Back Pain Pain right thumb Encounter Details Care Team Description Date Type Department Shahram Mccallum MD NO ADDRESS ON FILE Gout; Back pain with radiation 10/07/2012 Office Visit [facility] Primar y Care [address] [phone] Social History Date Tobacco Use Types Packs/Day [...] Reading Time Taken Comments Vital Sign 122/60 10/07/2012 3:29 PM CONTROL SYSTEM MANAGER Blood Pressure 88 10/07/2012 3:29 PM CONTROL SYSTEM MANAGER Pulse - - Temperature - - Respiratory Rate - - Oxygen Saturation - - Inhaled Oxygen Concentration 100.2 kg (221 lb) 10/07/2012 3:29 PM CONTROL SYSTEM MANAGER Weight 167.6 cm (5' 6") 10/07/2012 3:29 PM CONTROL SYSTEM MANAGER Height 35.67 10/07/2012 3:29 PM CONTROL SYSTEM MANAGER Body Mass Index documented in this encounter Progress Notes * Shahram Mccallum MD - 10/09/2012 2:12 PM CONTROL SYSTEM MANAGER Subjective: Oliverio Dalton is a 62 y.o. male. Patient Active Problem List Diagnoses Code DM w/o complication type I 250.01 Cor athrscl-uns vessel 414.00 Unspecified essential hypertension [...] suprapubic 789.09 Bradycardia 427.89 Urinary retention 788.20 Current Outpatient Prescriptions on File Prior to Visit Medication Sig Dispense Refill ibuprofen (MOTRIN) 800 mg Oral tablet Take 800 mg by mouth every 6 hours as needed. phenytoin sodium extended release (DILANTIN) 100 mg Oral capsule 2 capsules daily twice per day cyclobenzaprine (FLEXERIL) 10 mg Oral tablet Take 1 Tab by mouth 2 times conor ly as needed for Discomfort, Pain or Spasm for 10 days. 20 Tab 0 oxyCODONE-acetaminophen (PERCOCET) 5-325 mg Oral tablet Take 1 Tab by mouth every 6 hours as needed for Pain, Severe for 5 days. 20 Tab 0 cyclobenzaprine (FLEXERIL) 10 mg Oral tablet Take 10 mg by mouth every 12 ho urs as needed for Spasm. simvastatin (ZOCOR) 80 mg Oral tablet Take [...] Caps by mouth daily. 60 Cap 11 insulin glargine (LANTUS) 100 unit/mL subCUT [...] systems): Arthritis symptoms: diffuse arthralgias and pain persists in R thumb base. has n ot cleared with splint. pain acute onset and spontaneous. see urgent care note. now also having low back pain and some radiation. no recent injury. chronic b ut no acute bowel or bladder changes. Review of Systems: ROS has all of the following: Headache Dizziness Chest pain Shortness of breath Bowel changes Bladder changes Pain in muscle or joints Exam/Objective: Normal Exam for Routine Visits: \\Blood pressure 122/60, pulse 88, height 5' 6" ( 1.676 m), weight 221 lb (100.245 kg). General appearance: healthy appearing, active, alert, [...] bowel sounds. Extremities: symmetrical non edematous. Tender and swollen base of R thumb but a lso sl across palm of hand / wrist. Low back is tender also Assessment and Plan: ASSESSMENT: Encounter Diagnoses Name Primary? Gout Back pain with radiation PLAN: Orders Placed This Encounter URIC ACID AMB REFERRAL TO PHYSICAL THERAPY indomethacin SR (INDOCIN SR) 75 mg Oral capsule if needs splint then needs spicca for thumb. Appropriate medications prescribed (see detailed AVS). Appropriate patient instructions provided (see detailed AVS). Follow-up as I have indicated. Medications and options explained to include common side effects. Understanding of medications, course, diagnosis, and expectations were expressed by patient/g uardian. ROL SYSTEM MANAGER documented in this encounter Plan of Treatment Order Schedule Name Type Priority Associated Diag noses Ordered: 10/07/2012 AMB REFERRAL TO PHYSICAL Outpatient Routine Back pain with radiation THERAPY Referral documented as of this encounter Results * URIC ACID (01/02/2013 9:50 AM CONTROL SYSTEM MANAGER) URIC ACID 4.0Comment: [facility] 3.5 - 7.2 mg/dl [facility] ACCT#[id number], ,,,, LABORATORY SERVICES - [place] Specimen Blood specimen (specimen) Performing Organization Address City/State/Zipcode Ph one Number [facility]ORY SERVICES CLIA# [id number] [place] [address] [address] LABORATORY SERVICES CLIA# [id number] [place] [address] - [address] documented in this encounter Visit Diagnoses Diagnosis Gout Gout, unspecified Back pain with radiation Backache, unspecified documented in this encounter
--- OUTSIDE RECORDS SUMMARY | 2020-03-24 14:31 | XMS REPORT | Encounter Summary ---
Author Author [facility] Organization [facility] Address Unknown Phone Unavailable Care Team Providers Care Optical Engineering Manager Name Role Phone Shahram Mccallum MD PCP Unavailable Reason for Visit * Reason Comments Appointment Notification Talked with patient, recomm end he go to urgent care for assessment as patient reported has never had swelling in hand before. Patient stated his customer care specialist will take him. Encounter Details Care Team Description Date Type Department Sheela Sharpe Appointment Notification (Talked with franchesca martinez, recommend he go to urgent care for assessment as patient reported has never had swelling in hand before. Patient stated his customer care specialist will take him. ) 10/01/[address] [phone] Social History Date Tobacco Use Types Packs/Day [...] encounter Miscellaneous Notes * Telephone Encounter - Sheela Sharpe - 10/01/2012 9:26 AM HOUSEKEEPING ASSOCIATE Message copied by Sheela SHARPE on Sat Oct 01, 2012 9:26 AM ------ Message from: STEFANO POPE Created: Sat Oct 01, 2012 8:37 AM Contact: Enzo Said his thumb and been swelling and is painful for the last three days. At times it is red. Wants to know what he should do. EKEEPING ASSOCIATE documented in this encounter Plan of Treatment Not on filedocumented as of this encounter Visit Diagnoses Not on filedocumented in this encounter
--- OUTSIDE RECORDS SUMMARY | 2020-03-24 14:31 | XMS REPORT | Encounter Summary ---
Author Author [facility] Organization [facility] Address Unknown Phone Unavailable Care Team Providers Care Photographer'S Model Name Role Phone Shahram Mccallum MD PCP Unavailable Reason for Visit * Reason Comments Hand Pain right hand Encounter Details Care Team Description Date Type Department Dora Maloney, REAL ESTATE CLOSER [address] [place] [address] De Quervain's tenosynovitis, right (Prim rolando Dx) 10/01/2012 Office Visit [facility] [address] [place] [address] Social History Date Tobacco [...] Reading Time Taken Comments Vital Sign 122/60 10/01/2012 10:16 AM BUILDING CONSTRUCTION CONTRACTOR Blood Pressure - - Pulse 35.8 C (96.4 F) 10/01/2012 10:16 AM BUILDING CONSTRUCTION CONTRACTOR Temperature - - Respiratory Rate - - Oxygen Saturation - - Inhaled Oxygen Concentration 100.2 kg (221 lb) 10/01/2012 10:16 AM BUILDING CONSTRUCTION CONTRACTOR Weight 167.6 cm (5' 6") 10/01/2012 10:16 AM BUILDING CONSTRUCTION CONTRACTOR Height 35.67 10/01/2012 10:16 AM BUILDING CONSTRUCTION CONTRACTOR Body Mass Index documented in this encounter Progress Notes * Dora Mandujano ARNP - 10/02/2012 9:26 PM BUILDING CONSTRUCTION CONTRACTOR HISTORY OF PRESENT ILLNESS Oliverio Dalton, a 62 y.o. male. Hand Pain This is a new problem. The current episode started more than 2 days ago. The pro blem occurs constantly. The problem has been gradually worsening. The pain is pr esent in the right wrist and right hand. The quality of the pain is described as sharp and constant. The pain is at a severity of 8/10. The pain is severe. Pert inent negatives include no numbness, full range of motion, no stiffness and no t ingling. The symptoms are aggravated by activity. He has tried OTC pain medicati ons and rest for the symptoms. The treatment provided no relief. There has been no history of extremity trauma. Family history is significant for no rheumatoid arthritis and no gout. REVIEW OF SYSTEMS Review of Systems Musculoskeletal: Negative for joint swelling and stiffness. Neurological: Negative for tingling, weakness and numbness. PHYSICAL EXAM BP 122/60 | Temp 96.4 F (35.8 C) | Ht 5' 6" (1.676 m) | Wt 221 lb (100.245 k g) | BMI 35.67 kg/m2 Physical Exam Cardiovascular: Normal rate, regular rhythm, normal heart sounds and intact dist al pulses. No murmur heard. Pulmonary/Chest: Effort normal and breath sounds normal. No respiratory distress . Musculoskeletal: Normal range of motion. He exhibits tenderness. He exhibits no edema. Right shoulder: Normal. He exhibits normal range of motion, no deformity, n ormal pulse and normal strength. Right elbow: Normal. Right wrist: He exhibits tenderness and swelling. He exhibits normal range of motion, no bony tenderness, no effusion, no deformity and no laceration. Arms: Skin: Skin is warm. No rash noted. There is erythema. Right medial wrist and proximal to thumb ASSESSMENT and PLAN: 1. De Quervain's tenosynovitis, right (727.04) Meds per orders. RICE strategies reviewed. F/u with PCP in 1-2 weeks. Pt given wrist splint for immobilization. DING CONSTRUCTION CONTRACTOR documented in this encounter Plan of Treatment Not on filedocumented as of this encounter Visit Diagnoses Diagnosis De Quervain's tenosynovitis, right - Pr imary Radial styloid tenosynovitis documented in this encounter
--- OUTSIDE RECORDS SUMMARY | 2020-03-24 14:31 | XMS REPORT | Encounter Summary ---
Author Author [facility] Organization [facility] Address Unknown Phone Unavailable Care Team Providers Care Spring Fitter Name Role Phone Shahram Mccallum MD PCP Unavailable Encounter Details Care Team Description Date Type Department Walter Oconnor MD [address] [facility] [phone] [place] Chao [phone] 09/22/2012 Abstract [facility] [address] [place] [address] Social History Date Tobacco Use [...] Date/Time Associated Diag nosis ECHO COMPLETE Routine 09/26/2012 documented in this encounter Results * ECHO COMPLETE (09/26/2012) EJECTION 55 - 85 percent EXTERNAL FRACTION RADIOLOGY Narrative Performed At This result has an attachment that is n ot available. Performing Organization Address City/State/Zipcode Ph one Number EXTERNAL RADIOLOGY documented in this encounter Visit Diagnoses Not on filedocumented in this encounter
--- OUTSIDE RECORDS SUMMARY | 2020-03-24 14:31 | XMS REPORT | Encounter Summary ---
Author Author [facility] Organization [facility] Address Unknown Phone Unavailable Care Team Providers Care Manager Trainee Name Role Phone Shahram Mccallum MD PCP Unavailable Encounter Details Care Team Description Date Type Department Shahram Mccallum MD NO ADDRESS ON FILE 09/28/2012 Abstract [facility] Prim[facility] Care [place] [address] [place] [phone] Social History Date Tobacco Use Types Packs/Day [...]
--- OUTSIDE RECORDS SUMMARY | 2020-03-24 14:31 | XMS REPORT | Encounter Summary ---
Author Author [facility] Organization [facility] Address Unknown Phone Unavailable Care Team Providers Care Garment Parts Cutter Hand Name Role Phone Shahram Mccallum MD PCP Unavailable Reason for Visit * Auth/Cert Referred By Contact Referred To Contact Status Reason Specialty Diagnoses / Procedures [facility] [address] [place] [address] Closed Home Health Encounter Details Care Team Description Date Type Department Bree Reed RN SN - HOME VISIT 09/27/2012 Home Care Visit [facility]alt [facility] [address] [place] [address] Social History Date Tobacco Use [...] Reading Time Taken Comments Vital Sign 118/66 09/27/2012 1:00 AM SPINDLE CARVER Blood Pressure - - Pulse 36.5 C (97.7 F) 09/27/2012 1:00 AM SPINDLE CARVER Temperature 18 09/27/2012 1:00 AM SPINDLE CARVER Respiratory Rate - - Oxygen Saturation - [...] of dread Disciplines: and Chcf apprehensi on Active - 3 problem interventions scheduled/documented in this visit Breathing Problems - COPD Inadequate 08/03/2012 Disciplines: breathing Chcf pattern Active - 3 problem interventions scheduled/documented [...] Disciplines: teaching Chcf needs associated with diagnosis Active - 3 [...] in the plan of care. Visit on 09/27/2012 by Bree Reed RN [[id number]] at 10/04/2012 9:28:22 AM Nurse complieted teaching on managment of chest pain and seeking emergency managment. Pt. verbalizes understanding. Instruct daily log Problem: Completed Description: Learning/T [...] box Problem: Completed Description: Medication Fill Medication paraplanner s weekly. Skilled assessment Problem: Completed medications [...]
--- OUTSIDE RECORDS SUMMARY | 2020-03-24 14:31 | XMS REPORT | Encounter Summary ---
Author Author [facility] Organization [facility] Address Unknown Phone Unavailable Care Team Providers Care Remote Advisor Name Role Phone Shahram Mccallum MD PCP Unavailable Reason for Visit * Auth/Cert Referred By Contact Referred To Contact Status Reason Specialty Diagnoses / Procedures [facility] Home Health [facility] [address] [place] [address] Closed Home Health Encounter Details Care Team Description Date Type Department Marissa Pitts RN SN - HOME VISIT 10/08/2012 Home Care Visit [facility] [address] [place] [address] Social History Date Tobacco Use [...] of Care Monitor/ed 08/03/2012 Disciplines: luis e/giorgi Chcf force medical appointmen t compliance . [...] box Problem: Scheduled Description: Medication Fill Medication site planner s weekly. Skilled assessment Problem: Scheduled [...] Health Visit - Actions and Narratives To pt. home for medication site planner katty quinteros, as pt states he added Indocin to his own med site planner, but was not certain he did it right. Checke d each dose of med site planner, and all are filled correctly. documented in this encounter
--- OUTSIDE RECORDS SUMMARY | 2020-03-24 14:31 | XMS REPORT | Encounter Summary ---
Author Author [facility] Organization [facility] Address Unknown Phone Unavailable Care Team Providers Care Supervisor Billposting Name Role Phone Shahram Mccallum MD PCP Unavailable Encounter Details Care Team Description Date Type Department Shahram Mccallum MD NO ADDRESS ON FILE 09/28/2012 Abstract [facility] Primar y Care [place] [address] [place] [phone] Social History Date Tobacco Use Types Packs/Day [...]
--- OUTSIDE RECORDS SUMMARY | 2020-03-24 14:31 | XMS REPORT | Encounter Summary ---
Author Author [facility] Organization [facility] Address Unknown Phone Unavailable Care Team Providers Care Charge Lpn Name Role Phone Shahram Mccallum MD PCP Unavailable Reason for Visit * Auth/Cert Referred By Contact Referred To Contact Status Reason Specialty Diagnoses / Procedures [facility] [address] [place] [address] Closed Home Health Encounter Details Care Team Description Date Type Department Karen Booker RN SN - OASIS RECERTIFICATION 10/04/[facility] [address] [place] [address] Social History Date Tobacco [...] Signs Reading Time Taken Comments Vital Sign 136/74 10/04/2012 1:30 PM TAIL END RIDER Blood Pressure - - Pulse 36.4 C (97.6 F) 10/04/2012 1:30 PM TAIL END RIDER Temperature 20 10/04/2012 1:30 PM TAIL END RIDER Respiratory Rate - - Oxygen Saturation - - Inhaled Oxygen Concentration - - Weight - - Height - - Body Mass Index documented in this encounter Plan of Treatment Not on filedocumented as of this encounter Visit Diagnoses Not on filedocumented in this encounter Home Health Visit - Care Plan Visit Type - SN - OASIS RECERT Discipline - Care Home Status Goals Interventions [...] visit Continuum of Care Monitor/ed 08/03/2012 Disciplines: michelleate/giorig Care Home force medical appointmen t compliance [...] meal planning and instruct on nutritional requirements. Visit on 10/04/2012 by Karen Booker RN [[id number]] at 10/04/2012 3:16:36 PM instructed on taking blood sugar before he eats. Teach diabetes Problem: Completed Description: Learning/T SN [...] box Problem: Completed Description: Medication Fill Medication senior program planner s weekly. Skilled assessment Problem: Completed [...] familiar with the test. Seconds to Complete: 28 Walking aid used? No Older adults (age 65+) who took 13.5 se conds or longer to perform the TUG were classified as fallers, with an overall correct predic tion rate of 90%. documented in this encounter
--- OUTSIDE RECORDS SUMMARY | 2020-03-24 14:31 | XMS REPORT | Encounter Summary ---
Author Author [facility] Organization [facility] Address Unknown Phone Unavailable Care Team Providers Care Director External Communications Name Role Phone Shahram Mccallum MD PCP Unavailable Reason for Visit * Auth/Cert Referred By Contact Referred To Contact Status Reason Specialty Diagnoses / Procedures [facility] Home Health [facility] [address] [place] [address] Closed Home Health Encounter Details Care Team Description Date Type Department Karen Booker, RN CARE CONFERENCE 10/04/2012 Home Care Visit [facility] Healt [facility] [address] [place] [address] Social History Date Tobacco Use [...]
--- OUTSIDE RECORDS SUMMARY | 2020-03-24 14:31 | XMS REPORT | Encounter Summary ---
Author Author [facility] Organization [facility] Address Unknown Phone Unavailable Care Team Providers Care Baseball Winder Name Role Phone Shahram Mccallum MD PCP Unavailable Reason for Visit * Reason Comments Back Pain * Auth/Cert Referred By Contact Referred To Contact Status Reason Specialty Diagnoses / Procedures [facility] [address] [place] [address] Closed Inpatient Encounter Details Care Team Description Date Type Department Jada Fernandez MD NO ADDRESS ON FILE Sciatica 10/10/2012 Emergency [facility] Emergency Department [address] [address] Social History Date Tobacco Use [...] Signs Reading Time Taken Comments Vital Sign 119/68 10/10/2012 3:52 AM FOOD STYLIST Blood Pressure 101 10/10/2012 3:52 AM FOOD STYLIST Pulse 37 C (98.6 F) 10/10/2012 3:52 AM FOOD STYLIST Temperature 18 10/10/2012 3:52 AM FOOD STYLIST Respiratory Rate 99% 10/10/2012 3:52 AM FOOD STYLIST Oxygen Saturation - - Inhaled Oxygen Concentration 98.9 kg (218 lb) 10/10/2012 3:52 AM FOOD STYLIST Weight 167.6 cm (5' 6") 10/10/2012 3:52 AM FOOD STYLIST Height 35.19 10/10/2012 3:52 AM FOOD STYLIST Body Mass Index documented in this encounter Discharge Summaries * Aok Scanning, Him - 10/10/2012 1:17 PM FOOD STYLIST Electronically signed by Interface, Bong Aok Transcriptions Incoming at 2 1:17 PM FOOD STYLIST documented in this encounter Discharge Instructions * Attachments The following attachments cannot be sent through Care Everywhere.* SCIATICA: AFTER YOUR VISIT (INDONESIAN) documented in this encounter Medications at Time [...] (DILANTIN) 100 mg times daily. Oral capsule 10/11/2012 cyclobenzaprine Take 10 mg by 0 (FLEXERIL) 10 mg Oral mouth every tablet 12 hours as needed for Spasm. 08/30/2012 12/05/2012 zolpidem (AMBIEN) 10 mg Take [...] ED Notes * Kaye Fernandez MD - 10/10/2012 4:44 AM FOOD STYLIST HISTORY OF PRESENT ILLNESS Oliverio Dalton, a 62 y.o. male presents to the ED with a Chief Complaint of Ba ck Pain HPI Comments: Here with persistent LLE sciatica pain Patient is a 62 y.o. male presenting with back pain. Back Pain Pertinent negatives include no chest pain, no fever and no abdominal pain. REVIEW OF SYSTEMS Review of Systems Constitutional: Negative for fever, chills, activity change, appetite change and unexpected weight change. HENT: Negative for congestion and neck pain. Eyes: Negative for visual disturbance. Respiratory: Negative for chest tightness and shortness of breath. Cardiovascular: Negative for chest pain. Gastrointestinal: Negative for abdominal pain. Genitourinary: Negative for difficulty urinating. Musculoskeletal: Positive for back pain. Negative for arthralgias. Neurological: LLE radicular pain PAST MEDICAL HISTORY REVIEWED Past Medical History [...] 02/01/2009 COLONOSCOPY performed by BEULAH ZHOU at [facility] OR Hx hernia repair 1989 And age 4 Hx lap cholecystectomy 05/17/07 Hx coronary artery bypass graft Hx heart catheterization 04/10 With angioplasty, 2 stents Pr lap,appendectomy 05/28/2012 APPENDECTOMY LAPAROSCOPIC performed by Beulah Zhou MD at [facility] [place] [place] OR Pr repair umbilical colleen,4+y/o,reduc 05/28/2012 HERNIA UMBILICAL REPAIR performed by Beulah Zhou MD at [facility] [place] [place] OR Family History Problem Relation Age of [...] 5 minutes as needed for Chest Pain. PHENYTOIN SODIUM EXTENDED RELEASE (DILANTIN) 100 MG [...] r Insomnia. Medications Modified during this Encounter Modified Medication Previous Medication OXYCODONE-ACETAMINOPHEN (PERCOCET) 5-325 MG ORAL TABLET oxyCODONE-acetaminophen (PERCOCET) 5-325 mg Oral tablet Take 1-2 Tabs by mouth every 6 hours as needed for Pain, Severe for 5 days. Take 1 Tab by mouth every 6 hours as needed for Pain, Severe for 5 days. Medications Discontinued during this Encounter PHYSICAL EXAM Initial Vitals BP 10/10/12 0352 119/68 mmHg Pulse 10/10/12 0352 101 Resp 10/10/12 0352 18 Temp 10/10/12 0352 98.6 F (37 C) Temp src 10/10/12 0352 Oral SpO2 10/10/12 0352 99 % Physical Exam Nursing note and vitals [...] are normal. Musculoskeletal: Normal range of motion. Neurological: He is alert and oriented to person, place, and time. Absent reflex LE bilat, no muscle wasting Skin: Skin is warm and dry. DIAGNOSTICS LAB: RADIOLOGY: EKG: PROCEDURES Procedures REEVALUATION MEDICAL DECISION MAKING AND PLAN OF CARE . New Prescriptions for this Encounter Last vitals BP 119/68 | Pulse 101 | Temp(Src) 98.6 F (37 C) (Oral) | Resp 1 8 | Ht 5' 6" (1.676 m) | Wt 98.884 kg | BMI 35.19 kg/m2 | SpO2 99% MDM Coding Reviewed: previous chart, nursing note and vitals Medications Administered During the ED Stay from 10/10/2012 0345 to 10/10/2012 0 444 Date/Time Order Dose Route Action 10/10/2012 0406 fentaNYL PF (SUBLIMAZE) 50 mcg/mL injection 100 mcg 100 mcg IM Given 10/10/20126 orphenadrine citrate (NORFLEX) 30 mg/mL injection 60 mg 60 mg I M Given CLINICAL IMPRESSION Encounter Diagnoses Code Name Primary? 724.3 Sciatica CASE DISCUSSED PATIENT COUNSELING Diagnostics reviewed and questions answered. Diagnosis, treatment options and p brianna of care discussed with understanding verbalized. DISPOSITION, EDUCATION AND MEDICATION RECONCILIATION Medications reconciled. See after visit summary for patient education on discha rged patients. Decadron 4 mg/ depo-medrol 80 mg IM Analgesia follow up with PCP, consider orthopedic vs neurosurgical consult STYLIST * Nayely Duff, RN - 10/10/2012 4:11 AM FOOD STYLIST Pt states he was diagnosed with sciatica 5-6 days ago, states he has had continu ed pain, comes in wanting something more for pain. Dr Fernandez paged orders recei katie for pain medication. STYLIST documented in this encounter Plan of Treatment Not on filedocumented as of this encounter Visit Diagnoses Diagnosis Sciatica documented in this encounter Administered Medications Action Date Dose Rate Site Medication Order MAR Action 10/10/2012 4:46 AM FOOD STYLIST 4 mg Deltoid, Right dexamethasone (DECADRON) injection 4 mg Given 4 mg, IM, ONE TIME ONLY, 1 dose, 10/10/12 at 0445, Routine 10/10/2012 4:06 AM FOOD STYLIST 100 mcg Vastus L ateralis, Left fentaNYL PF (SUBLIMAZE) 50 mcg/mL Given injection 100 mcg 100 mcg, IM, ONE TIME ONLY, 1 dose, 10/10/12 at 0400, Routine 10/10/2012 4:47 AM FOOD STYLIST 80 mg Deltoid, Left methylPREDNISolone Acetate (DEPO-MEDROL) Given injection 80 mg 80 mg, IM, ONE TIME ONLY, 1 dose, 10/10/12 at 0445, Routine 10/10/2012 4:06 AM FOOD STYLIST 60 mg Vastus L ateralis, Left orphenadrine citrate (NORFLEX) 30 mg/mL Given injection 60 mg 60 mg, IM, ONE TIME ONLY, 1 dose, 10/10/12 at 0400, Routine documented in this encounter
--- OUTSIDE RECORDS SUMMARY | 2020-03-24 14:31 | XMS REPORT | Encounter Summary ---
Author Author [facility] Organization [facility] Address Unknown Phone Unavailable Care Team Providers Care Supervisor Pastry Name Role Phone Shahram Mccallum MD PCP Unavailable Encounter Details Care Team Description Date Type Department Shahram Mccallum MD NO ADDRESS ON FILE 10/07/2012 Abstract [facility] Primar y Care [place] [address] [place] [id number] Social History Date Tobacco Use Types Packs/Day [...]
--- OUTSIDE RECORDS SUMMARY | 2020-03-24 14:31 | XMS REPORT | Encounter Summary ---
Author Author [facility] Organization [facility] Address Unknown Phone Unavailable Care Team Providers Care Yard Pipe Grader Name Role Phone Shahram Mccallum MD PCP Unavailable Reason for Visit * Reason Comments Leg Pain Left Back Pain pt went to chiropractor for adjustment yesterday Encounter Details Care Team Description Date Type Department Zeke Abarca MD [address] [place] [address] Left groin pain; Low back pain; Kidney stones; Sciatica 10/04/2012 Emergency [facility] Emergency Department [address] [id number] Social History Date Tobacco Use [...] Signs Reading Time Taken Comments Vital Sign 135/75 10/04/2012 3:21 AM TRUCK UNLOADER Blood Pressure 76 10/04/2012 3:28 AM TRUCK UNLOADER Pulse 36.1 C (96.9 F) 10/04/2012 12:54 AM TRUCK UNLOADER Temperature 18 10/04/2012 2:31 AM TRUCK UNLOADER Respiratory Rate 96% 10/04/2012 3:21 AM TRUCK UNLOADER Oxygen Saturation - - Inhaled Oxygen Concentration 97.5 kg (215 lb) 10/04/2012 12:54 AM TRUCK UNLOADER Weight 167.6 cm (5' 6") 10/04/2012 12:54 AM TRUCK UNLOADER Height 34.7 10/04/2012 12:54 AM TRUCK UNLOADER Body Mass Index documented in this encounter Discharge Instructions * Patient Instructions* Aok Scanning, Him - 10/04/2012 12:35 PM TRUCK UNLOADER Electronically signed by Sienna, Bong Aguilera Transcriptions Incoming at 2 12:35 PM TRUCK UNLOADER * Additional Instructions* Zeke Abarca MD - 10/04/[address] Mccallum if you continue to have pain Try Flexeril for muscle spasms. Percocet for severe pain. The Flexeril (Cyclobenzaprine) prescription was sent electronically to [facility] to be filled after they open in the morning. THANK YOU FOR CHOOSING [facility]! Our goal is to provide you with [...] attachments cannot be sent through Care Everywhere.* BACK PAIN, EMERGENCY OR URGENT SYMPTOMS: AFTER YOUR VISIT (SURINAMESE) * FLANK PAIN: AFTER YOUR VISIT (SURINAMESE) * SCIATICA: AFTER YOUR VISIT (SURINAMESE) documented in this encounter Medications at Time [...] needed for Shortness of Breath or Wheezing. 10/04/2012 10/05/2012 oxyCODONE-acetaminophen Take 1 Tab by 6 Tab 0 (PERCOCET) 5-325 mg Oral mouth every 6 tablet hours as needed for Pain, Severe for 1 day. 10/04/2012 10/14/2012 cyclobenzaprine Take 1 Tab by [...] (DILANTIN) 100 mg times daily. Oral capsule 10/04/2012 10/10/2012 oxyCODONE-acetaminophen Take 1 Tab by 20 Tab 0 (PERCOCET) 5-325 mg Oral mouth every 6 tablet hours as needed for Pain, Severe for 5 days. 08/30/2012 12/05/2012 zolpidem (AMBIEN) 10 mg Take [...] ED Notes * Haris Rosario RN - 10/04/2012 3:51 AM TRUCK UNLOADER Percocet medication leaflet provided. K UNLOADER * Haris Rosario RN - 10/04/2012 3:45 AM TRUCK UNLOADER Pt states he feels like he is able to go home now. K UNLOADER * Zeke Abarca MD - 10/04/2012 1:07 AM TRUCK UNLOADER HISTORY OF PRESENT ILLNESS Oliverio Dalton, a 62 y.o. male presents to the ED with a Chief Complaint of Le g Pain and Back Pain HPI Comments: He has had 4-5 days of left groin and low back pain. He has not ta pamela anything for it. He saw chiropractor for adjustment which helped some and th jung was told that he had a hernia by the chiropractor. The home health nurse told him he had a blood clot over the phone and to go to ER. Patient is a 62 y.o. male presenting with leg pain and back pain. The history is provided by the patient and a caregiver. Leg Pain This is a new problem. The current episode started more than 2 days ago. The pro blem occurs constantly. The problem has been gradually worsening. The pain is pr esent in the left upper leg, left hip and back. The quality of the pain is descr ibed as sharp. The pain is severe. Associated symptoms include limited range of motion (due to pain). Pertinent negatives include no numbness, no stiffness, no tingling and no itching. The symptoms are aggravated by activity. Treatments tri ed: saw chiropractor today after having pain for 4 or 5 days. The treatment prov ided mild relief. There has been no history of extremity trauma. Back Pain This is a new problem. The current episode started more than 2 days ago. The pro blem occurs constantly. The problem has been gradually worsening. The pain is as sociated with no known injury. The pain is present in the lumbar spine. The qual ity of the pain is described as stabbing and shooting. The pain radiates to the left thigh. The pain is severe. The symptoms are aggravated by certain positions . Associated symptoms include leg pain. Pertinent negatives include no chest darinel n, no fever, no numbness, no weight loss, no headaches, no abdominal pain, no ab dominal swelling, no bowel incontinence, no perianal numbness, no bladder incont inence, no dysuria, no pelvic pain, no paresthesias, no paresis, no tingling and no weakness. REVIEW OF SYSTEMS Review of Systems Constitutional: Negative for fever, chills and weight loss. HENT: Negative for neck pain and neck stiffness. Respiratory: Negative for shortness of breath. Cardiovascular: Negative for chest pain and leg swelling. Gastrointestinal: Negative for nausea, vomiting, abdominal pain and bowel incont inence. Genitourinary: Negative for bladder incontinence, dysuria and pelvic pain. Musculoskeletal: Positive for myalgias, back pain, arthralgias and gait problem (chronic but worse with this pain). Negative for stiffness. Low back pain with radiation into left groin and upper leg Skin: Negative for itching and rash. Neurological: Negative for tingling, weakness, numbness, headaches and paresthes ias. Psychiatric/Behavioral: The patient is nervous/anxious. PAST MEDICAL [...] 02/01/2009 COLONOSCOPY performed by MARY ZHOU at [facility] OR Hx hernia repair 1988 And age 4 Hx lap cholecystectomy 05/17/07 Hx coronary artery bypass graft Hx heart catheterization 04/10 With angioplasty, 2 stents Pr lap,appendectomy 05/28/2012 APPENDECTOMY LAPAROSCOPIC performed by Mary Zhou MD at [facility] OR Pr repair umbilical colleen,4+y/o,reduc 05/28/2012 HERNIA UMBILICAL REPAIR performed by Mary Zhou MD at [facility] OR Family History Problem Relation Age of [...] Home Medications New Prescriptions for this Encounter CYCLOBENZAPRINE (FLEXERIL) 10 MG ORAL TABLET Take 1 Tab by mouth 2 times conor ly as needed for Discomfort, Pain or Spasm for 10 days. OXYCODONE-ACETAMINOPHEN (PERCOCET) 5-325 MG ORAL TABLET Take 1 Tab by mouth every 6 hours as needed for Pain, Severe for 1 day. OXYCODONE-ACETAMINOPHEN (PERCOCET) 5-325 MG ORAL TABLET Take 1 Tab by mouth every 6 hours as needed for Pain, Severe for 5 days. Current Home Medications AEROBID IN Take 2 Puffs by inhalation 3 times daily. ALBUTEROL IN Take 2 Puffs by inhalation every 6 hours as needed ALBUTEROL-IPRATROPIUM (COMBIVENT) 103-18 MCG/ACTUATION INHALATION AERO Take 2 Puffs by inhalation every 12 hours. ASPIRIN EC 81 MG ORAL TBEC Take 81 mg by mouth daily. BENZONATATE (TESSALON) 200 MG ORAL CAPSULE Take 1 Cap by mouth every 4 hours as needed for Cough. BETHANECHOL (URECHOLINE) 25 MG ORAL TABLET Take [...] 1 Tab by mouth daily with supper. FLAXSEED OIL 1,000 MG ORAL CAP Take 1000 mg by mouth 3 times daily. FLUOXETINE (PROZAC) 20 MG ORAL CAPSULE Take 2 Caps by mouth daily. FLUTICASONE (FLONASE) 50 MCG/SPRAY BOTH NOSTRIL SPSN Administer 2 Sprays in each nostril daily. IBUPROFEN (MOTRIN) 800 MG ORAL TABLET Take 800 mg by mouth every 6 hours as needed. INSULIN GLARGINE (LANTUS) 100 UNIT/ML SUBCUT SOLN [...] 5 minutes as needed for Chest Pain. PIOGLITAZONE (ACTOS) 30 MG ORAL TABLET Take 1 Tab by mouth daily. PROMETHAZINE (PHENERGAN) 12.5 MG ORAL TAB Take 12.5 mg by mouth every 8 hour s as needed. RAMIPRIL (ALTACE) 10 MG ORAL CAPSULE Take [...] during this Encounter Modified Medication Previous Medication PHENYTOIN SODIUM EXTENDED RELEASE (DILANTIN) 100 MG ORAL CAPSULE phenytoin sodi um extended release (PHENYTEK) 100 mg Oral capsule 2 capsules daily twice per day 2 capsules daily in the morning And 1 capsule daily at bedtime. Medications Discontinued during this Encounter PHYSICAL EXAM Initial Vitals BP 10/04/12 0054 118/74 mmHg Pulse 10/04/12 0054 78 Resp 10/04/12 0054 24 Temp 10/04/12 0054 96.9 F (36.1 C) Temp src 10/04/12 0054 Axillary SpO2 10/04/12 0054 93 % Physical Exam Nursing note and vitals reviewed. Constitutional: He is oriented to person, place, and time. He appears well-devel oped and well-nourished. He is active and cooperative. No distress. HENT: Head: Normocephalic and atraumatic. Mouth/Throat: Oropharynx is clear and moist. Abdominal: Soft. Bowel sounds are normal. He exhibits no distension. There is no tenderness. Musculoskeletal: He exhibits tenderness. Left hip: He exhibits decreased range of motion (due to pain) and tendernes s. He exhibits no swelling, no crepitus, no deformity and no laceration. Lumbar back: He exhibits tenderness, pain and spasm. He exhibits no swellin g, no edema, no deformity, no laceration and normal pulse. Neurological: He is alert and oriented to person, place, and time. Skin: Skin is warm and dry. No rash noted. He is not diaphoretic. DIAGNOSTICS LAB: RADIOLOGY: CT PELVIS WO CONTRAST (Results Pending) CT LUMBAR SPINE WO CONTRAST (Results Pending) Prelim report shows several Left renal pelvis stones with dilation of renal pelv is. No fractures or incarcerated hernia. CT PELVIS WO CONTRAST (In process) Result time:10/04/12 024 In process by Interface, [facility] Incoming Radiology Results (10/04/12 02:42:24) Narrative: THIS IS A PRELIMINARY REPORT FROM [facility] Comparison: Lumbar spine CT today. FINDINGS: No distal ureteral calculi. Fat containing bilateral inguinal hernias. Appendectomy. Atherosclerosis. Left intrarenal calculi. Penile prosthesis. 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 No pelvic fractures. Bilateral hip alignment is normal. Small bilateral hip joint effusions. IMPRESSION: 1. No acute fractures. 2. Small bilateral hip joint effusions. 3. Nonemergent findings above. DICTATED BY: Chu Canales on Wednesday10/04/2012 02:42AM CDT CT LUMBAR SPINE WO CONTRAST (In process) Result time:10/04/12231 In process by Interface, [facility] Incoming Radiology Results (10/04/12 02:32:09) Narrative: THIS IS A PRELIMINARY REPORT FROM [facility] Comparison: None provided at time of dictation. FINDINGS: No posttraumatic malalignment. Lumbar spine degenerative disease. Mild multilevel central canal narrowing. Mild-moderate left and L5-S1 neural foramen stenosis. Mild right L5-S1 neural foramen stenosis. No acute lumbar spine fractures. Multiple left renal pelvis calculi. Mild dilation the left renal pelvis up to 15 mm. Left ureter is normal in caliber. Correlation with prior imaging is suggested. IMPRESSION: 1. No acute lumbar spine abnormalities. 2. Multiple left renal pelvis calculi. Mild dilation the left renal pelvis up to 15 mm. Left ureter is normal in caliber. Correlation with prior imaging is suggested. DICTATED BY: Chu Canales on Wednesday10/04/2012 02:32AM CDT EKG: PROCEDURES Procedures REEVALUATION MEDICAL DECISION MAKING AND PLAN OF CARE . New Prescriptions for this Encounter CYCLOBENZAPRINE (FLEXERIL) 10 MG ORAL TABLET Take 1 Tab by mouth 2 times conor ly as needed for Discomfort, Pain or Spasm for 10 days. OXYCODONE-ACETAMINOPHEN (PERCOCET) 5-325 MG ORAL TABLET Take 1 Tab by mouth every 6 hours as needed for Pain, Severe for 1 day. OXYCODONE-ACETAMINOPHEN (PERCOCET) 5-325 MG ORAL TABLET Take 1 Tab by mouth every 6 hours as needed for Pain, Severe for 5 days. Last vitals BP 135/75 | Pulse 76 | Temp(Src) 96.9 F (36.1 C) (Axillary) | R barbaar 18 | Ht 5' 6" (1.676 m) | Wt 97.523 kg | BMI 34.70 kg/m2 | SpO2 96% MDM Coding Reviewed: vitals, nursing note and previous chart Interpretation: CT scan and SP02 He has pain in his left groin and low back. This is worse with palpation and mov ement. He seems to be having pain with spasms. Will try Fentanyl and Norflex. C heck Ct of lumbar spine and pelvis to evaluate for potential cause of pain. 0145 pt reports pain is worse since having to move around and to lay on CT table for scan. He is moaning and grunting. Will repeat Fentanyl 50 mcg IV. 0215 after second pain shot he still complains that his pain is severe. However , he initially said that his pain was way worse than any 0-10 pain scale and the re was no number for how severe his pain was when he first got here. Now he rate s his pain 8/10 so he apparently has had significant improvement. Still awaitin g CT to see if it shows anything for explaining his pain. He is also very chatty with his caregiver that drove him to ER. He is no longer moaning and grunting w ith pain either. [address] results with patient and caregiver. Will Try another dose of F entanyl and add on Toradol and Decadron to see if that will help from an anti-in flammatory standpoint. He reports having Dr. Gastelum break up his large kidney stone from left side at [facility]. He was told they removed it all. CT tonight shows a stone still present. Some of this pain may be sciatica for his pain in back of his leg. The burning sensation and pain to groin and front of leg could be either a stone trying to pass through or early shingles that has not had an outbreak of rash yet. If the repeat medicine and anti-inflammatory medicine help s will continue pain medicine and muscle relaxer at home. Encouraged to check ba ck with Dr. Mccallum his PCP today if he continues to have severe pain. Caregiver is not able to stay with him emile as she has a child at home she has to get ready for school. She is concerned that he may fall after getting the medicines here in ER [facility]. She would like him admitted for pain control if possible. I advised that insurance does not usually pay for that to be done. I would try ch ecking with Dr. Beal the service loss control consultant doctor if he continues to have significant pain after repeat dose of Fentanyl and Decadron with Toradol added on. He rates his p ain 5/10 before getting these medicines. The patient is ok with trying things at home but wants the pain tolerable. 0350 Pt asking to go after medicine given. Discharge orders prepared. Give Perc ocet 6 pack for tonight. Script for more if needed also provided. Electronic pre scription [facility]. Medications Administered During the ED Stay from 10/04/2012 0044 to 10/04/2012 0 352 Date/Time Order Dose Route Action 10/04/2012 0336 sodium chloride 0.9 % flush injection 3 mL 3 mL IV Given 10/04/2012 0333 sodium chloride 0.9 % flush injection 3 mL 3 mL IV Given 10/04/2012 0200 sodium chloride 0.9 % flush injection 3 mL 3 mL IV Given 10/04/2012 0115 sodium chloride 0.9 % flush injection 3 mL 3 mL IV Given 10/04/2012 0118 fentaNYL PF (SUBLIMAZE) 50 mcg/mL injection 50 mcg 50 mcg IV Gi kathe 10/04/2012 0116 orphenadrine citrate (NORFLEX) 30 mg/mL injection 60 mg 60 mg I V Given 10/04/2012 0158 fentaNYL PF (SUBLIMAZE) 50 mcg/mL injection 50 mcg 50 mcg IV Gi kathe 10/04/2012 0328 fentaNYL PF (SUBLIMAZE) 50 mcg/mL injection 50 mcg 50 mcg IV Gi kathe 10/04/2012 0330 dexamethasone (DECADRON) injection 4 mg 4 mg IV Given 10/04/2012 0334 ketorolac (TORADOL) injection 15 mg 15 mg IV Given CLINICAL IMPRESSION Encounter Diagnoses Name Primary? Left groin pain Low back pain Kidney stones Sciatica CASE DISCUSSED PATIENT COUNSELING Diagnostics reviewed and questions answered. Diagnosis, treatment options and p brianna of care discussed with understanding verbalized. DISPOSITION, EDUCATION AND MEDICATION RECONCILIATION Medications reconciled. See after visit summary for patient education on discha rged patients. K UNLOADER documented in this encounter Miscellaneous Notes * Scanned Form - Aok Scanning, Him - 10/04/2012 12:35 PM TRUCK UNLOADER Electronically signed by Bong El Aoaldair Transcriptions Incoming at 2 12:35 PM TRUCK UNLOADER documented in this encounter Plan of Treatment Not on filedocumented as of this encounter Procedures Comments Procedure Name Priority Date/Time Associated Diag nosis CT LUMBAR SPINE WO Stat 10/04/2012 CONTRAST 1:[address] PELVIS WO CONTRAST Stat 10/04/2012 1:54 AM TRUCK UNLOADER documented in this encounter Results * CT LUMBAR SPINE WO CONTRAST (10/04/2012 1:54 AM TRUCK UNLOADER) Specimen Impressions Performed At IMPRESSION: Mild degenerative disc change as describe d without acute INTERFACE SYSTEM fracture or subluxation. If symptoms pe rsist MRI of the lumbar spine may be of benefit. If there is clini donovan concern for upper urinary tract obstruction then a CT abdomen and pelvis stone protocol be helpful. Narrative Performed At CT lumbar spine: INTERFACE SYSTEM Noncontrast axial imaging performed and sagittal and coronal reconstructed images obtained. Examin ation obtained for history of left hip pain. Sagittal coronal and axial thin section reconstructed images obtained. FINDINGS: Lumbar vertebral body heights and align ment appear maintained. No acute fracture or subluxation. Mild deg enerative disc change at L1-2 and L2-3. Mild central compression defo rmity at L1 noted without soft tissue swelling may be related to prior compression fracture. Axial imaging demonstrates no gross are as of disc protrusion or spinal stenosis. Posterior disc bulging noted at L4-5 and L5-S1. Left renal calculi are noted. No ayanna dence of obstruction. Procedure Note Wally Sharpe MD - 10/04/2012 3:[address] lumbar spine: Noncontrast axial imaging performed and sagittal and coronal reconstructed images obtained. Examination obtained for history of left hip pain. Sagittal coronal and axial thin section reconstructed images obtained. FINDINGS: Lumbar vertebral body heights and alignment appear maintained. No acute fracture or subluxation. Mild degenerative disc change at L1-2 and L2-3. Mild central compression deformity at L1 noted without soft tissue swelling may be related to prior compression fracture. Axial imaging demonstrates no gross areas of disc protrusion or spinal stenosis. Posterior disc bulging noted at L4-5 and L5-S1. Left renal calculi are noted. No evidence of obstruction. IMPRESSION IMPRESSION: Mild degenerative disc change as described without acute fracture or subluxation. If symptoms persist MRI of the lumbar spine may be of benefit. If there is clinical concern for upper urinary tract obstruction then a CT abdomen and pelvis stone protocol be helpful. Performing Organization Address City/State/Zipcode Ph one Number INTERFACE SYSTEM INTERFACE SYSTEM Refer to clinic/hospital department * CT PELVIS WO CONTRAST (10/04/2012 1:54 AM TRUCK UNLOADER) Specimen Impressions Performed At IMPRESSION: No acute fracture or subluxation involvin g the bony INTERFACE SYSTEM structures of the pelvis. Bilateral hip joint effusions with degenerative change in left lower pole renal calculi noted. Narrative Performed At CT of the pelvis without contrast: INTERFACE SYSTEM INDICATION: Left groin pain Noncontrast imaging through the pelvis demonstrates left lower pole renal calculi. There are no fractures o r subluxations or areas of adenopathy. There is moderate fluid d istention of the bladder noted. Penile prosthesis noted. Postoperative changes with clips in the right lower quadrant suggest previous appende ctomy. There appear to be small bilateral hip joint effusions present. Coronal reconstructed views demonstrate moderate degenerative oleary e with superior joint space narrowing. No fracture or subluxation i nvolving the hip joints. Procedure Note Wally Sharpe MD - 10/04/2012 3:[address] of the pelvis without contrast: INDICATION: Left groin pain Noncontrast imaging through the pelvis demonstrates left lower pole renal calculi. There are no fractures or subluxations or areas of adenopathy. There is moderate fluid distention of the bladder noted. Penile prosthesis noted. Postoperative changes with clips in the right lower quadrant suggest previous appendectomy. There appear to be small bilateral hip joint effusions present. Coronal reconstructed views demonstrate moderate degenerative change with superior joint space narrowing. No fracture or subluxation involving the hip joints. IMPRESSION IMPRESSION: No acute fracture or subluxation involving the bony structures of the pelvis. Bilateral hip joint effusions with degenerative change in left lower pole renal calculi noted. Performing Organization Address City/State/[facility] one Number INTERFACE SYSTEM INTERFACE SYSTEM Refer to clinic/hospital department documented in this encounter Visit Diagnoses Diagnosis Left groin pain Abdominal pain, left lower quadrant Low back pain Lumbago Kidney stones Calculus of kidney Sciatica documented in this encounter Administered Medications Action Date Dose Rate Site Medication Order MAR Action 10/04/2012 3:30 AM TRUCK UNLOADER 4 mg Arm, Lef t dexamethasone (DECADRON) injection 4 mg Given 4 mg, IV, ONE TIME ONLY, 1 dose, 10/04/12 at 0330, Routine 10/04/2012 1:18 AM TRUCK UNLOADER 50 mcg Arm, Lef t fentaNYL PF (SUBLIMAZE) 50 mcg/mL Given injection 50 mcg 50 mcg, IV, ONE TIME ONLY, 1 dose, 10/04/12 at 0115, Routine 10/04/2012 1:58 AM TRUCK UNLOADER 50 mcg Arm, Lef t fentaNYL PF (SUBLIMAZE) 50 mcg/mL Given injection 50 mcg 50 mcg, IV, ONE TIME ONLY, 1 dose, 10/04/12 at 0200, Routine 10/04/2012 3:28 AM TRUCK UNLOADER 50 mcg Arm, Lef t fentaNYL PF (SUBLIMAZE) 50 mcg/mL Given injection 50 mcg 50 mcg, IV, ONE TIME ONLY, 1 dose, 10/04/12 at 0330, Routine 10/04/2012 3:34 AM TRUCK UNLOADER 15 mg Arm, Lef t ketorolac (TORADOL) injection 15 mg Given 15 mg, IV, ONE TIME ONLY, 1 dose, 10/04/12 at 0330, Routine 10/04/2012 1:16 AM TRUCK UNLOADER 60 mg Arm, Lef t orphenadrine citrate (NORFLEX) 30 mg/mL Given injection 60 mg 60 mg, IV, ONE TIME ONLY, 1 dose, 10/04/12 at 0115, Routine 10/04/2012 3:36 AM TRUCK UNLOADER 3 mL Arm, Lef t sodium chloride 0.9 % flush injection 3 Given mL 3 mL, IV, TWO TIMES DAILY, First dose o n 10/04/12 at 0115, Until Discontinued, Routine 3 mL Arm, Left Given 10/04/2012 3:33 AM TRUCK UNLOADER 3 mL Arm, Left Given 10/04/2012 2:00 AM TRUCK UNLOADER documented in this encounter
--- OUTSIDE RECORDS SUMMARY | 2020-03-24 14:31 | XMS REPORT | Encounter Summary ---
Author Author [facility] Organization [facility] Address Unknown Phone Unavailable Care Team Providers Care Statistical Reporting Analyst Name Role Phone Shahram Mccallum MD PCP Unavailable Encounter Details Care Team Description Date Type Department Shahram Mccallum MD NO ADDRESS ON FILE 09/28/2012 Abstract [facility] Primar y Care [place] [address] [place] [id number] Social History Date Tobacco Use Types Packs/Day [...]
--- OUTSIDE RECORDS SUMMARY | 2020-03-24 14:32 | XMS REPORT | Encounter Summary ---
Author Author [facility] Organization [facility] Address Unknown Phone Unavailable Care Team Providers Care Waist Cutter Name Role Phone Shahram Mccallum MD PCP Unavailable Reason for Visit * Reason Comments Leg Swelling Encounter Details Care Team Description Date Type Department Walter Oconnor MD [address] [facility] [address] [place] Chao [id number] Leg Swelling 09/02/2012 Telephone [facility] [address] [place] [address] Social History Date Tobacco Use [...] Telephone Encounter - Kim Naranjo LPN - 09/02/2012 1:07 PM CDT Patient c/o swelling in his right leg that goes from his ankle to his hip. Start ed approx 2 months ago and says his leg feels cold to the touch. Also says he mackenzie s been having spells where he gets very sob, feels clammy, and his heart rate dr ops down into the 40's. Denies chest pain, but just feels awful and leg is very painful. Today he has been having dry heaves. Went to his local ER a month ago a nd they could not find anything wrong. Agrees to come to [facility] in [place]. He will let us know what they find. FYI to Dr Oconnor. documented in this encounter Plan of Treatment Not on filedocumented as of this encounter Visit Diagnoses Not on filedocumented in this encounter
--- OUTSIDE RECORDS SUMMARY | 2020-03-24 14:32 | XMS REPORT | Encounter Summary ---
Author Author [facility] Organization [facility] Address Unknown Phone Unavailable Care Team Providers Care Seasonal Warehouse Associate Name Role Phone Shahram Mccallum MD PCP Unavailable Reason for Visit * Reason Comments Chest Pain Pt has come to ER with cc o f abd and chest pain that has been ongoing for the last month. PT states his pain sta rts in his abd and goes upward into his chest and into his shoulder and arm s. Pt rates the pain upon arrival to ER 02/15. Pt reporrts this has been an ongoing cycle for the last several weeks. Encounter Details Care Team Description Date Type Department Bradycardia; Urinary retention; BPH (benign prostatic hypertrophy) with urinary retention 09/05/2012 Emergency [facility] Emergency Department [address] [address] Social History Date Tobacco Use [...] Signs Reading Time Taken Comments Vital Sign 122/43 09/05/2012 2:22 PM CDT Blood Pressure 47 09/05/2012 2:22 PM CDT Pulse 36.7 C (98.1 F) 09/05/2012 2:22 PM CDT Temperature 18 09/05/2012 2:22 PM CDT Respiratory Rate 96% 09/05/2012 2:22 PM CDT Oxygen Saturation - - Inhaled Oxygen Concentration 96.6 kg (213 lb) 09/05/2012 2:22 PM CDT Weight 167.6 cm (5' 6") 09/05/2012 2:22 PM CDT Height 34.38 09/05/2012 2:22 PM CDT Body Mass Index documented in this encounter Discharge Instructions * Patient Instructions* Willy Chaves, Him - 09/06/2012 11:01 AM CDT Electronically signed by Interface, Bong Aok Transcriptions Incoming at 2 11:01 AM CDT * Additional Instructions* Sybil Henry APRN - 09/05/2012 Stop all Metoprolol. Decrease Dilantin as ordered. Urology Appt as scheduled. Pulse check daily by Home Health. Call Dr Mccallum office Wednesday with Readings. PRN intermittent strait cath bladder emptying Home Health documented in this encounter Medications at Time [...] needed for Shortness of Breath or Wheezing. 09/05/2012 10/18/2012 phenytoin sodium extended 200 mg 2 0 release (DILANTIN) 100 mg times daily. Oral capsule 09/05/2012 10/04/2012 phenytoin sodium extended 2 capsules 90 Cap 0 release (PHENYTEK) 100 mg daily in the Oral capsule morning And 1 capsule daily at bedtime. 08/30/2012 12/05/2012 zolpidem (AMBIEN) 10 mg Take [...] as of this encounter Procedure Notes * Aok Scanning, [facility] - 09/07/2012 2:40 PM CDT Associated Order(s): EKG 12 LEAD UNIT PERFORMED Electronically signed by Sienna, Bong Aok Transcriptions Incoming at 2 2:40 PM CDT * David Ferrer MD - 09/06/2012 10:14 AM CDT Associated Order(s): EKG 12 LEAD UNIT PERFORMED [facility], [facility]. [address] [place] [address]. [place], [place] [address] EKG OLIVERIO DALTON [id number] 09/05/12 at 1427. The rhythm is slightl y irregular, sinus in origin with a single electrical spike between supraventric ular complexes in inferior limb leads, not seen in limb lead I, possibly represe nting premature ventricular contraction versus electrical artifact, rate 52 beat s per minute. Electrical axis is leftward. T waves are flattened to inverted ac ross the lateral limb and chest leads. Q waves are seen in limb lead III. Compar ed with previous tracing dated August 30 2012, P waves are of low amplitude b ut are present preceding QRS complexes currently. Electrical axis has shifted le ftward currently. Diagnosis: 1) Supraventricular rhythm, apparently sinus rhythm with single interpolated electrical spike, possibly premature ventricular contr action, rate 52 beats per minute. 2) Leftward axis. 3) Nonspecific STT changes. 4) Borderline inferior limb lead Q waves, old inferior wall myocardial infarct cannot be completely ruled out. Dictated by Bronwyn Dictated by: EKG DD 09/06/12 TD 09/06/12/LRG EKG REPORT # [id number] ORDER # documented in this encounter Consult Notes * Walter Oconnor MD - 09/05/2012 3:04 PM CDT CARDIOLOGY CONSULT NOTE Patient: Oliverio Dalton 1950 [id number] Requesting Physician: Dr. Mccallum Primary Care Provider: Shahram Mccallum MD Reason for Consultation: Symptomatic bradycardia History: Oliverio Dalton is a 62 y.o. male with multiple chronic medical proble ms who is well known to me. He was referred to the ER today for recurrent episod es of suprapubic pain radiating to the umbilical region followed by diaphoresis, SOB and sinus bradycardia. Telemetry and EKG confirm sinus bradycardia and he h as no EKG changes. He has a known left renal pelvis stone nad has chronic urinar y retention. Past Medical History Diagnosis Date Wrist sprain 08/10 Rt. Contusion, back 08/16/03 Fall Cataract Unspecified disease of respiratory system Glaucoma Asthma Diabetes Seizure disorder Unspecified disorder of lipoid metabolism Coronary artery disease Chronic ischemic heart disease, unspecified Unspecified essential hypertension COPD (chronic obstructive pulmonary disease) I've reviewed the home and current hospital medications. Allergies Allergen Reactions Codeine Unknown Doxycycline Rash Phenobarbital Weakness "relaxes me too much" Piperacillin-Tazobactam Hives and Rash Breaks out Terazosin Other (See Comments) Chest heaviness, chest pain Valium (Diazepam) Other (See Comments) "stops breathing, no pulse" Family History Problem Relation Age of Onset Other Mother Blood pressure Diabetes Mother Respiratory Disease Mother Asthma Mother Other Sister Blood pressure Diabetes Sister Respiratory Disease Sister Heart Disease Sister Asthma Sister Lung Cancer Brother Seizures Brother Other Father "brain anuerysm" Healthy Daughter Heart Disease Son Healthy Daughter Healthy Daughter Healthy Son Healthy Son Healthy Son Healthy Son History Social History Marital Status: Spouse Name: [...] Social History Narrative No narrative on file No current facility-administered medications on file prior to encounter. Current Outpatient Prescriptions on File Prior to Encounter Medication Sig Dispense Refill ASPIRIN EC 81 mg Oral TbEC Take 81 mg by mouth daily. TYLENOL 325 mg Oral Tab Take 1-2 Tabs by mouth every 4 hours as needed for P ain. zolpidem (AMBIEN) 10 mg Oral tablet Take 1 Tab by mouth nightly as needed fo r Insomnia. 30 Tab 2 blood sugar diagnostic (ACCU-CHEK ACTIVE TEST) Misc Strp In the am & pm prn 1 Package 0 metoprolol succinate ER 24 hour (TOPROL XL) 25 mg Oral tablet Take 0.5 Tabs by mouth daily. 30 Tab 0 promethazine (PHENERGAN) 12.5 mg Oral Tab Take 12.5 mg by mouth every 8 hour s as needed. FLUoxetine (PROZAC) 20 mg Oral capsule Take 2 Caps by mouth daily. 60 Cap 11 insulin glargine (LANTUS) 100 unit/mL subCUT Soln Inject 30 Units by subcuta neous injection daily. fenofibrate nanocrystallized (TRICOR) 145 mg Oral tablet Take 1 Tab by mouth daily with supper. 30 Tab 11 oxyCODONE-acetaminophen (PERCOCET) 10-325 mg Oral Tab Take 1 Tab by mouth ev len 4 hours as needed for Pain. diclofenac sodium (VOLTAREN) 50 mg Oral TbEC Take 50 mg by mouth 2 times conor ly. albuterol-ipratropium (COMBIVENT) 103-18 mcg/Actuation Inhalation Aero Take [...] Cap by mouth daily. 30 Cap 11 phenytoin (PHENYTEK) 200 mg Oral Cap Take 1 Cap by mouth 2 times daily. In t he morning and at bedtime. 60 Cap 5 fluticasone (FLONASE) 50 mcg/spray Both Nostril SpSn Administer 2 Sprays in each nostril daily. 1 Bottle 5 clopidogrel (PLAVIX) 75 mg Oral Tab Take 1 Tab by mouth daily. 30 Tab 11 loratadine (CLARITIN) 10 mg Oral tablet Take 1 Tab by mouth daily. 30 Tab 11 simvastatin (ZOCOR) 80 mg Oral tablet Take 40 mg by mouth Daily LATE. benzonatate (TESSALON) 200 mg Oral capsule Take 1 Cap by mouth every 4 hours as needed for Cough. 30 Cap 0 esomeprazole (NEXIUM) 40 mg Oral CpDR Take [...] 1 Tab by mouth 3 times daily. flaxseed Oil 1,000 mg Oral Cap Take 1000 mg by mouth 3 times daily. MULTIVITAMIN PO Take 1 Tab by mouth daily with lunch. AEROBID IN Take 2 Puffs by inhalation 3 times daily. ALBUTEROL IN Take 2 Puffs by inhalation every 6 hours as needed BETIMOL 0.5 % OP Drop Administer 1 Drop in both eyes 2 times daily. REVIEW OF SYSTEMS: Review of Systems - History obtained from the patient General ROS: negative for weight changes, fever Allergy and Immunology ROS: negative for itchy eyes, nasal congestion, sneezing, lymphadenopathy Hematological and Lymphatic ROS: negative for swollen glands or abnormal bleedin g Endocrine ROS: negative for polyuria/polydipsia or new changes in weight Respiratory ROS: positive for - dyspnea on exertion and shortness of breath negative for - cough, hemoptysis, sputum changes or wheezing Cardiovascular ROS: positive for - dyspnea on exertion and bradycardia negative for - chest pain, orthopnea or syncope Gastrointestinal ROS: positive for - abdominal pain, gas/bloating and nausea/vom iting negative for - blood in stools, constipation, diarrhea, hematemesis or melena Genito-Urinary ROS: positive for - urinary retention negative for - dysuria or hematuria Neurological ROS: negative for TIA or stroke symptoms positive for - seizures and recently elevated dilantin levels Other systems negative PHYSICAL EXAM: BP 122/43 | Pulse 47 | Temp(Src) 98.1 F (36.7 C) (Oral) | Resp 18 | Ht 5' 6" (1.676 m) | Wt 213 lb (96.616 kg) | BMI 34.38 kg/m2 | SpO2 96% General appearance: alert, in no distress Neck: thyroid: not enlarged, symmetric, no tenderness/mass/nodules, no carotid b ruit and no JVD Lungs: diminished breath sounds diffuse, normal respiratory effort, no wheezing Heart: bradycardia, distant tones Abdomen: abnormal findings: tenderness mild in the L flank and suprapubic, no r ebound, normal bowel sounds Extremities: extremities normal, atraumatic, no cyanosis or edema Pulses: 2+ and symmetric Neurologic: Grossly normal LAB: I have reviewed the available labs. Results for orders placed during the hospital encounter of 09/05/12 (from the [facility] 24 hour(s)) MYOGLOBIN Component Value Range MYOGLOBIN, PLASMA 57 16 - 97 ng/ml TROPONIN Component Value Range TROPONIN I LESS THAN 0.04 0 - 0.4 ng/ml CBC WITH MANUAL DIFFERENTIAL Component Value Range EOSINOPHILS 2 0 - 8 %Manual BANDS 2 0 - 22 %Manual NEUTROPHILS, SEG 54 30 - 68 %Manual LYMPHOCYTES 36 14 - 50 %Manual MONOCYTE 6 0 - 11 %Manual PLATELET EST. Normal WBC ESTIMATE Normal WBC 8.74 3.0 - 10.4 x10E3 RBC 4.73 4.15 - 5.75 x10E6 HEMOGLOBIN 13.8 13.8 - 17.4 g/dL HEMATOCRIT 41.3 38.6 - 49.4 % MCV 87.4 79 - 100 fL MCH 29.3 28 - 34 pg MCHC 33.5 31 - 35 g/dL RDW 13.9 12.1 - 14.1 % PLATELETS 322 148 - 408 x10E3 MPV 8.2 7.4 - 10.6 fL NEUTROPHILS 59.2 43 - 73 % LYMPHOCYTES 30.7 19 - 47 % MONOCYTES 6.9 3 - 9 % EOSINOPHILS 2.6 0 - 6 % BASOPHILS 0.6 0 - 1.2 % NEUTROPHIL ABSOLUTE 5.17 1.3 - 7.6 x10E3 LYMPHOCYTE ABSOLUTE 2.68 0.6 - 4.9 x10E3 MONOCYTE ABSOLUTE 0.60 0.1 - 0.9 x10E3 EOSINOPHIL ABSOLUTE 0.23 (*) 0.0 - 0.2 x10E3 BASOPHILS ABSOLUTE 0.06 0 - 0.1 x10E3 EKG: SB, minor nonspecific T changes (nothing new) CHEST X-RAY: Results for orders placed during the hospital encounter of 08/30/12 XR CHEST PA OR AP Narrative: AP or PA chest Comparison: August 24 Clinical history: Chest pain. Findings: The patient is status post median sternotomy for apparent CABG. The cardiac silhouette and pulmonary vascularity are within normal limits. There are no infiltrates or masses seen. No evidence of pneumothorax. Impression: Impression: No acute cardiopulmonary disease. IMPRESSIONS: Patient Active Problem List Diagnoses Code DM [...] suprapubic 789.09 Bradycardia 427.89 Urinary retention 788.20 RECOMMENDATIONS: 1) DC metoprolol 2) Decrease Dilantin to 400 mg am and 200 mg pm 3) Refer to Urology for urinary retention and nephrolithiasis 4) In my opinion the bradycardia is due to the bladder distention,abdominal pain and patient's tendency to valsalva. Ultimately he made need a pacemaker if the medication changes don't help and he refuses treatment of chronic urinary retent ion (intermittent straight cath or urostomy) Walter Oconnor MD 09/05/2012 3:05 PM documented in this encounter ED Notes * Aok Scanning, Him - 09/06/2012 11:01 AM CDT Electronically signed by Bong El Aok Transcriptions Incoming at 2 11:01 AM CDT * Aly Nance RN - 09/05/2012 4:11 PM CDT Straight cath prior to pt leaving - 500cc urine obtained. * Sybil Henry APRN - 09/05/2012 2:25 PM CDT HISTORY OF PRESENT ILLNESS Oliverio Dalton, a 62 y.o. male presents to the ED with a Chief Complaint of Ch est Pain Patient is a 62 y.o. male presenting with chest pain. The history is provided by the patient. Chest Pain The chest pain began less than 1 hour ago. The chest pain is resolved. At its mo st intense, the pain is at 5/10. The pain is currently at 0/10. The severity of the pain is moderate. The pain does not radiate. Primary symptoms include shortn ess of breath and nausea. Pertinent negatives for primary symptoms include no fe mejia, no fatigue, no syncope, no cough, no wheezing, no palpitations, no abdomina l pain, no vomiting, no dizziness and no altered mental status. Pertinent negatives for associated symptoms include no claudication, no diaphore sis, no lower extremity edema, no near-syncope, no numbness, no orthopnea, no pa roxysmal nocturnal dyspnea and no weakness. Risk factor(s) for ischemic heart di sease include CAD, diabetes, dyslipidemia, hypertension, male gender, obesity an d sedentary lifestyle. Risk factor(s) for ischemic heart disease do not include coronary artery disease in family and post-menopausal. REVIEW OF SYSTEMS Review of Systems Constitutional: Negative for fever, diaphoresis and fatigue. HENT: Negative for congestion. Respiratory: Positive for shortness of breath. Negative for cough and wheezing. Cardiovascular: Positive for chest pain. Negative for palpitations, orthopnea, c laudication, syncope and near-syncope. Gastrointestinal: Positive for nausea. Negative for vomiting and abdominal pain. Genitourinary: Negative for dysuria and difficulty urinating. Neurological: Negative for dizziness, weakness and numbness. Psychiatric/Behavioral: Negative for altered mental status. PAST MEDICAL HISTORY REVIEWED Past Medical History [...] 02/01/2009 COLONOSCOPY performed by MARY ZHOU at [facility] OR Hx hernia repair 1988 And age 4 Hx lap cholecystectomy 05/17/07 Hx coronary artery bypass graft Hx heart catheterization 04/10 With angioplasty, 2 stents Pr lap,appendectomy 05/28/2012 APPENDECTOMY LAPAROSCOPIC performed by Mary Zhou MD at [facility] [place] [facility] OR Pr repair umbilical colleen,4+y/o,reduc 05/28/2012 HERNIA UMBILICAL REPAIR performed by Mary Zhou MD at [facility] OR Family History Problem [...] TAB Take 1 Tab by mouth daily. DICLOFENAC SODIUM (VOLTAREN) 50 MG ORAL TBEC Take 50 mg by mouth 2 times conor ly. ESOMEPRAZOLE (NEXIUM) 40 MG ORAL CPDR Take [...] Administer 2 Sprays in each nostril daily. INSULIN GLARGINE (LANTUS) 100 UNIT/ML SUBCUT [...] as needed for Chest Pain. OXYCODONE-ACETAMINOPHEN (PERCOCET) 10-325 MG ORAL TAB Take 1 Tab by mouth ev len 4 hours as needed for Pain. PIOGLITAZONE (ACTOS) 30 MG ORAL TABLET Take 1 Tab by mouth daily. PROMETHAZINE (PHENERGAN) 12.5 MG ORAL TAB Take 12.5 mg by mouth every 8 hour s as needed. RAMIPRIL (ALTACE) 10 MG ORAL CAPSULE Take 1 Cap by mouth daily. SIMVASTATIN (ZOCOR) 80 MG ORAL TABLET Take 40 mg by [...] Medication Previous Medication PHENYTOIN SODIUM EXTENDED RELEASE (PHENYTEK) 100 MG ORAL CAPSULE phenytoin (PHE NYTEK) 200 mg Oral Cap 2 capsules daily in the morning And 1 capsule daily at bedtime. Take 1 Cap by mouth 2 times daily. In the mor mariana and at bedtime. Medications Discontinued during this Encounter METOPROLOL SUCCINATE ER 24 HOUR (TOPROL XL) 25 MG ORAL TABLET Take 0.5 Tabs by mouth daily. PHYSICAL EXAM Initial Vitals BP 09/05/12 1422 122/43 mmHg Pulse 09/05/12 1422 47 Resp 09/05/12 1422 18 Temp 09/05/12 1422 98.1 F (36.7 C) Temp src 09/05/12 1422 Oral SpO2 09/05/12 1422 96 % Physical Exam Constitutional: He is oriented to person, place, and time. He appears well-devel oped and well-nourished. HENT: Head: Normocephalic and atraumatic. Right Ear: External ear normal. Left Ear: External ear normal. Nose: Nose normal. Mouth/Throat: Oropharynx is clear and moist. Eyes: Pupils are equal, round, and reactive to light. Neck: Normal range of motion. Neck supple. Cardiovascular: Regular rhythm and intact distal pulses. Bradycardia present. Murmur heard. Pulmonary/Chest: Effort normal and breath [...] orders placed during the hospital encounter of 09/05/12 (from the [facility] 24 hour(s)) MYOGLOBIN Component Value Range MYOGLOBIN, PLASMA 57 16 - 97 ng/ml TROPONIN Component Value Range TROPONIN I LESS THAN 0.04 0 - 0.4 ng/ml CBC WITH MANUAL DIFFERENTIAL Component Value Range EOSINOPHILS 2 0 - 8 %Manual BANDS 2 0 - 22 %Manual NEUTROPHILS, SEG 54 30 - 68 %Manual LYMPHOCYTES 36 14 - 50 %Manual MONOCYTE 6 0 - 11 %Manual PLATELET EST. Normal WBC ESTIMATE Normal WBC 8.74 3.0 - 10.4 x10E3 RBC 4.73 4.15 - 5.75 x10E6 HEMOGLOBIN 13.8 13.8 - 17.4 g/dL HEMATOCRIT 41.3 38.6 - 49.4 % MCV 87.4 79 - 100 fL MCH 29.3 28 - 34 pg MCHC 33.5 31 - 35 g/dL RDW 13.9 12.1 - 14.1 % PLATELETS 322 148 - 408 x10E3 MPV 8.2 7.4 - 10.6 fL NEUTROPHILS 59.2 43 - 73 % LYMPHOCYTES 30.7 19 - 47 % MONOCYTES 6.9 3 - 9 % EOSINOPHILS 2.6 0 - 6 % BASOPHILS 0.6 0 - 1.2 % NEUTROPHIL ABSOLUTE 5.17 1.3 - 7.6 x10E3 LYMPHOCYTE ABSOLUTE 2.68 0.6 - 4.9 x10E3 MONOCYTE ABSOLUTE 0.60 0.1 - 0.9 x10E3 EOSINOPHIL ABSOLUTE 0.23 (*) 0.0 - 0.2 x10E3 BASOPHILS ABSOLUTE 0.06 0 - 0.1 x10E3 PHENYTOIN LEVEL, TOTAL Component Value Range PHENYTOIN TOTAL 27.8 (*) 10 - 20 ug/ml RADIOLOGY: EKG: NSB PROCEDURES Procedures Strait cath with 500cc u.o. Pt refused indwelling catheter REEVALUATION MEDICAL DECISION MAKING AND PLAN OF CARE Dr Oconnor over to see pt in the ER, see consult . New Prescriptions for this Encounter Last vitals BP 122/43 | Pulse 47 | Temp(Src) 98.1 F (36.7 C) (Oral) | Resp 18 | Ht 5' 6" (1.676 m) | Wt 96.616 kg | BMI 34.38 kg/m2 | SpO2 96% Coding CLINICAL IMPRESSION Encounter Diagnoses Name Primary? Bradycardia Urinary retention BPH (benign prostatic hypertrophy) with urinary retention CASE DISCUSSED Dr Xena Oconnor PATIENT COUNSELING Diagnostics reviewed and questions answered. Diagnosis, treatment options and p brianna of care discussed with understanding verbalized. DISPOSITION, EDUCATION AND MEDICATION RECONCILIATION Medications reconciled. See after visit summary for patient education on discha rged patients. documented in this encounter Miscellaneous Notes * Scanned Form - Aok Scanning, [facility] - 09/06/2012 11:01 AM CDT 2 11:01 AM CDT documented in this encounter Plan of Treatment Not on filedocumented as of this encounter Procedures Comments Procedure Name Priority Date/Time Associated Diag nosis EKG 12 LEAD UNIT Stat 09/07/2012 PERFORMED 2:40 PM CDT CBC WITH MANUAL Stat 09/05/2012 DIFFERENTIAL 2:14 PM CDT TROPONIN Stat 09/05/2012 2:14 PM CDT MYOGLOBIN Stat 09/05/2012 2:14 PM CDT PHENYTOIN LEVEL, TOTAL Stat 09/05/2012 2:14 PM CDT documented in this encounter Results * EKG 12 LEAD UNIT PERFORMED (09/07/2012 2:40 PM CDT) Narrative Performed At This result has an attachment that is n ot available. Transcriptions David Bernard MD - 09/06/2012 10:14 AM CDT [facility], [facility]. [address] [place] [address] EKG OLIVERIO DALTON [facility] OU [id number] 09/05/12 at 1427. The rhythm is slightly irregular, sinus in origin with a single electrical spike between supraventricular complexes in inferior limb leads, not seen in limb lead I, possibly representing premature ventricular contraction versus electrical artifact, rate 52 beats per minute. Electrical axis is leftward. T waves are flattened to inverted across the lateral limb and chest leads. Q waves are seen in limb lead III. Compared with previous tracing dated August 30 2012, P waves are of low amplitude but are present preceding QRS complexes currently. Electrical axis has shifted leftward currently. Diagnosis: 1) Supraventricular rhythm, apparently sinus rhythm with single interpolated electrical spike, possibly premature ventricular contraction, rate 52 beats per minute. 2) Leftward axis. 3) Nonspecific STT changes. 4) Borderline inferior limb lead Q waves, old inferior wall myocardial infarct cannot be completely ruled out. Dictated by S.JericaW. Dictated by: EKG DD 09/06/12 TD 09/06/12/LRG EKG REPORT # [id number] ORDER # 09/07/2012 2:40 PM CDT * PHENYTOIN LEVEL, TOTAL (09/05/2012 2:14 PM CDT) [facility] PHENYTOIN TOTAL 27.8 (H)Comment: 10 - 20 ug/ml [facility] ACCT#[id number], ,,,, SERVICES - [place] Specimen Blood specimen (specimen) Performing Organization Address City/State/Zipcode Ph one Number [facility] CLIA# [id number] [place] [address] - [place] [address] [place] [address] LABORATORY SERVICES CLIA# [id number] [place] [address] - [address] * CBC WITH MANUAL DIFFERENTIAL (09/05/2012 2:14 PM CDT) Pathologist [facility] EOSINOPHILS 2 0 - 8 %Manual [facility] [place] BANDS 2 0 - 22 %Manual [facility] [place] NEUTROPHILS, 54 30 - 68 %Manual [facility] [place] LYMPHOCYTES 36 14 - 50 %Manual [facility] [place] MONOCYTE 6 0 - 11 %Manual [facility] [place] PLATELET EST. Normal [facility] - [facility] WBC ESTIMATE Normal [facility] - [place] WBC 8.74 3.0 - 10.4 x10E3 [facility] [place] RBC 4.73 4.15 - 5.75 x10E6 [facility] [place] HEMOGLOBIN 13.8 13.8 - 17.4 g/dL [facility] - [place] HEMATOCRIT 41.3 38.6 - 49.4 % [facility] [place] MCV 87.4 79 - 100 fL [facility] - [place] MCH 29.3 28 - 34 pg [facility] [place] MCHC 33.5 31 - 35 g/dL [facility] - [place] RDW 13.9 12.1 - 14.1 % [facility] - [facility] PLATELETS 322 148 - 408 x10E3 [facility] - [place] MPV 8.2 7.4 - 10.6 fL [facility] - [place] NEUTROPHILS 59.2 43 - 73 % [facility] [place] LYMPHOCYTES 30.7 19 - 47 % [facility] [place] MONOCYTES 6.9 3 - 9 % [facility] [place] EOSINOPHILS 2.6 0 - 6 % [facility] [place] BASOPHILS 0.6 0 - 1.2 % [facility] [place] NEUTROPHIL 5.17 1.3 - 7.6 x10E3 [facility] [place] LYMPHOCYTE 2.68 0.6 - 4.9 x10E3 [facility] [place] MONOCYTE 0.60 0.1 - 0.9 x10E3 [facility] - [facility] EOSINOPHIL 0.23 (H) 0.0 - 0.2 x10E3 [facility] - [facility] BASOPHILS 0.06Comment: [place], [place] 0 - 0.1 x10E3 [facility] ACCT#[id number], ,,,, LABORATORY SERVICES - [place] Specimen Blood specimen (specimen) Performing Organization Address [facility] one [facility] LABORATORY SERVICES CLIA# [id number] [place] [address] LABORATORY SERVICES CLIA# [id number] [place] [address] * TROPONIN (09/05/2012 2:14 PM CDT) TROPONIN I LESS THAN 0.04Comment: 0 - 0.4 ng/ml [place] LABORATORY ACCT#[id number], ,,,, SERVICES - [place] Specimen Blood specimen (specimen) Performing Organization Address [facility] LABORATORY SERVICES CLIA# [id number] [place] [address] LABORATORY SERVICES CLIA# [id number] [place] [address] * MYOGLOBIN (09/05/2012 2:14 PM CDT) MYOGLOBIN, 57Comment: [facility] [place] [address] - 97 ng/ml M ERCY PLASMA ACCT#[id number], ,,,, LABORATORY SERVICES - [place]GRIM Specimen Blood specimen (specimen) Performing Organization Address City/[facility] Ph one [facility] LABORATORY SERVICES CLIA# [id number] [place], [place] [address] [address] LABORATORY SERVICES CLIA# [id number] [place] [address] - [address] documented in this encounter Visit Diagnoses Diagnosis Bradycardia Other specified cardiac dysrhythmias Urinary retention Retention of urine, unspecified BPH (benign prostatic hypertrophy) with urinary retention Hypertrophy of prostate with urinary ob struction and other lower urinary tract symptoms (LUTS) Abdominal pain, suprapubic Abdominal pain, other specified site Neurogenic bladder Neurogenic bladder, NOS Chronic airway obstruction, not elsewhe re classified documented in this encounter
--- OUTSIDE RECORDS SUMMARY | 2020-03-24 14:32 | XMS REPORT | Encounter Summary ---
Author Author [facility] Organization [facility] Address Unknown Phone Unavailable Care Team Providers Care Blower Blast Furnace Name Role Phone Shahram Mccallum MD PCP Unavailable Reason for Visit * Auth/Cert Referred By Contact Referred To Contact Status Reason Specialty Diagnoses / Procedures [facility] [address] [place] [address] Closed Home Health Encounter Details Care Team Description Date Type Department Karen Booker RN SN - HOME VISIT 09/05/2012 Home Care Visit [facility] [address] [place] [address] Social History Date Tobacco Use [...] Signs Reading Time Taken Comments Vital Sign 112/70 09/05/2012 7:15 AM CDT Blood Pressure - - Pulse - - Temperature 20 09/05/2012 7:15 AM CDT Respiratory Rate - - Oxygen [...] 12/05/2012 - COPD of dread Disciplines: and Mcfp apprehensi on Active - 3 problem interventions scheduled/documented in this visit Breathing Problems - COPD Inadequate 08/03/2012 Disciplines: breathing Mcfp pattern Active - 3 problem interventions scheduled/documented in this visit Failure to Comply With Behaviors 08/03/2012 Plan of Care of Disciplines: patient/ca Mcfp regiver that do not follow the plan of care. Active - 1 problem intervention scheduled/documented in this visit Continuum of Care Monitor/ed 08/03/2012 Disciplines: michelleate/rein Mcfp force medical appointmen t compliance . Identify and facilitate appropriat e discipline referrals. Active - 2 problem interventions scheduled/documented in this visit Injury Prevention - At risk 08/03/2012 Hypertension for Disciplines: injury: Mcfp related to internal factors resulting from complicati ons of hypertensi on Active - 4 problem interventions scheduled/documented in this visit Learning/Teaching Needs - Learning 08/03/2012 Diabetes and Disciplines: teaching Mcfp needs associated with diagnosis Active - 3 problem interventions scheduled/documented in this visit Learning/Teaching Needs - Lack of 08/03/2012 Hypertension knowledge Disciplines: re: Mcfp medical regimen related to controllin g/managing hypertensi on Active - 4 problem interventions scheduled/documented in this visit Medications Management 08/03/2012 Disciplines: of home Mcfp medication s Active - 2 problem interventions scheduled/documented in this visit Problems with Activity - Decreased 08/03/2012 COPD tolerance Disciplines: to normal Mcfp activities related to dyspnea and fatigue. Variance [...] box Problem: Completed Description: Medication Fill Medication production planner s weekly. Skilled assessment Problem: Completed [...] Home Health Visit - Actions and Narratives Sent patient to ER at my visit earlier today. Received called from ER physician that medication changes were made: metoprolol was disco ntinued, levaquin added, Dilantin decreased to 200mg AM and 100mg PM. Requests that I go to home to fix med production planner as patient is unable to do and the last time a paid caregiver said she would do it, the meds were not changed. To home to make med changes in med production planner and instruct patient on new med ications and medication changes. Paid caregiver is to check pulse and blood pressure daily via mach ine in home. documented in this encounter
--- OUTSIDE RECORDS SUMMARY | 2020-03-24 14:32 | XMS REPORT | Encounter Summary ---
Author Author [facility] Organization [facility] Address Unknown Phone Unavailable Care Team Providers Care Food Assembler Commissary Kitchen Name Role Phone Shahram Mccallum MD PCP Unavailable Reason for Visit * Auth/Cert Referred By Contact Referred To Contact Status Reason Specialty Diagnoses / Procedures [facility] Home [facility] [address] [place] [address] Closed Home Health Encounter Details Care Team Description Date Type Department Bree Reed RN SN - HOME VISIT 09/13/2012 Home Care Visit [facility] [address] [place] [address] Social History Date Tobacco Use [...] Signs Reading Time Taken Comments Vital Sign 136/64 09/13/2012 9:15 AM PIGMENT WEIGHER Blood Pressure - - Pulse 37 C (98.6 F) 09/13/2012 9:15 AM PIGMENT WEIGHER Temperature 16 09/13/2012 9:15 AM PIGMENT WEIGHER Respiratory Rate - - Oxygen Saturation - [...] 12/05/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 Active - 1 problem intervention scheduled/documented in this visit Continuum of Care Monitor/ed 08/03/2012 Disciplines: ucate/rein [facility] force medical appointmen t compliance . Identify and facilitate appropriat e discipline referrals. Active - 2 problem interventions scheduled/documented in this visit Injury Prevention - At risk 08/03/2012 Hypertension for Disciplines: injury: [facility] related to internal factors resulting from complicati ons of hypertensi on Active - 4 problem interventions scheduled/documented in this visit Learning/Teaching Needs - Learning 08/03/2012 Diabetes and Disciplines: teaching [facility] needs associated with diagnosis Active - 3 problem interventions scheduled/documented in this visit Learning/Teaching Needs - Lack of 08/03/2012 Hypertension knowledge Disciplines: re: [facility] medical regimen related to controllin g/managing hypertensi on Active - 4 problem interventions scheduled/documented in this visit Medications Management 08/03/2012 Disciplines: of home [facility] medication s Active - 2 problem interventions scheduled/documented in this visit Problems with Activity - Decreased 08/03/2012 COPD tolerance Disciplines: to normal [facility] activities related to dyspnea and fatigue. Variance [...] box Problem: Completed Description: Medication Fill Medication special events planner s weekly. Skilled assessment Problem: Completed [...] Health Visit - Actions and Narratives Teaching completed on chest pain manage ment: Using NTG q5min x3. If chest pain not controlled call 911. Note charactorists of pain. Precipitat ing factors. S/S of exacerbation Manage. Keep follow up physician's appt. Storage of NTG. Af ter breaking seal on NTG bottle--date bottle--renew in 6 months documented in this encounter
--- OUTSIDE RECORDS SUMMARY | 2020-03-24 14:32 | XMS REPORT | Encounter Summary ---
Author Author [facility] Organization [facility] Address Unknown Phone Unavailable Care Team Providers Care Production Control Coordinating Clerk Name Role Phone Shahram Mccallum MD PCP Unavailable Reason for Visit * Auth/Cert Referred By Contact Referred To Contact Status Reason Specialty Diagnoses / Procedures [facility] [address] [place] [address] Closed Home Health Encounter Details Care Team Description Date Type Department Karen Booker RN SN - HOME VISIT 08/30/2012 Home Care Visit [facility] [address] [place] [address] Social History Date Tobacco Use [...] Signs Reading Time Taken Comments Vital Sign 108/70 08/30/2012 6:15 AM CDT Blood Pressure - - Pulse 36.2 C (97.2 F) 08/30/2012 6:15 AM CDT Temperature 22 08/30/2012 6:15 AM CDT Respiratory Rate - - Oxygen [...] 12/05/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 Active - 1 problem intervention scheduled/documented in this visit HH Continuum of Care Monitor/ed 08/03/2012 Disciplines: michelleate/rein [facility] force medical appointmen t compliance . Identify and facilitate appropriat e discipline referrals. Active - 2 problem interventions scheduled/documented in this visit Injury Prevention - At risk 08/03/2012 Hypertension for Disciplines: injury: [facility] related to internal factors resulting from complicati ons of hypertensi on Active - 4 problem interventions scheduled/documented in this visit Learning/Teaching Needs - Learning 08/03/2012 Diabetes and Disciplines: teaching [place] needs associated with diagnosis Active - 3 problem interventions scheduled/documented in this visit Learning/Teaching Needs - Lack of 08/03/2012 Hypertension knowledge Disciplines: re: [facility] medical regimen related to controllin g/managing hypertensi on Active - 4 problem interventions scheduled/documented in this visit Medications Management 08/03/2012 Disciplines: of home [facility] medication s Active - 2 problem interventions scheduled/documented in this visit Problems with Activity - Decreased 08/03/2012 COPD tolerance Disciplines: to normal [facility] activities related to dyspnea and fatigue. Variance [...] box Problem: Completed Description: Medication Fill Medication merchandise planner s weekly. Skilled assessment Problem: [...] - Actions and Narratives To home to take out reglan pills as the y have been discontinued. Also cut all metoprolol pills in half per drs orders. Instructed on fole y catheter care including cleaning, empyting and changing to dependent drainage bags. documented in this encounter
--- OUTSIDE RECORDS SUMMARY | 2020-03-24 14:32 | XMS REPORT | Encounter Summary ---
Author Author [facility] Organization [facility] Address Unknown Phone Unavailable Care Team Providers Care Entertainment Lawyer Name Role Phone Shahram Mccallum MD PCP Unavailable Encounter Details Care Team Description Date Type Department Shahram Mccallum MD NO ADDRESS ON FILE 09/07/2012 Abstract [facility] Primar y Care [address] [place] [phone] Social History Date Tobacco Use Types Packs/Day [...]
--- OUTSIDE RECORDS SUMMARY | 2020-03-24 14:32 | XMS REPORT | Encounter Summary ---
Author Author [facility] Organization [facility] Address Unknown Phone Unavailable Care Team Providers Care Cosmetic Sales Assistant Name Role Phone Shahram Mccallum MD PCP Unavailable Reason for Visit * Reason Comments Medication Refill Encounter Details Care Team Description Date Type Department Shahram Mccallum MD NO ADDRESS ON FILE 09/05/2012 Refill [facility] Primar y Care [address] [phone] Social History Date Tobacco Use Types Packs/Day [...]
--- OUTSIDE RECORDS SUMMARY | 2020-03-24 14:32 | XMS REPORT | Encounter Summary ---
Author Author [facility] Organization [facility] Address Unknown Phone Unavailable Care Team Providers Care Sash Sticker Name Role Phone Shahram Mccallum MD PCP Unavailable Reason for Visit * Auth/Cert Referred By Contact Referred To Contact Status Reason Specialty Diagnoses / Procedures [facility] [address] [place] [address] Closed Home Health Encounter Details Care Team Description Date Type Department Karen Booker RN SN - HOME VISIT 09/01/2012 Home Care Visit [facility] [address] [place] [address] Social History Date Tobacco Use [...] - - Blood Pressure - - Pulse 36.1 C (97 F) 09/01/2012 9:30 AM CDT Temperature 20 09/01/2012 9:30 AM CDT Respiratory Rate - - Oxygen [...] box set up by SN. Visit on 09/01/2012 by Karen Booker RN [[id number]] at 09/01/2012 12:56:54 PM med box not filled as it is not due until next week. Medication box Problem: Completed Description: Medication Fill Medication financial planner s weekly. Skilled assessment Problem: Completed [...] Home Health Visit - Actions and Narratives Ulloa catheter removed as ordered witho ut difficulty. documented in this encounter
--- OUTSIDE RECORDS SUMMARY | 2020-03-24 14:32 | XMS REPORT | Encounter Summary ---
Author Author [facility] Organization [facility] Address Unknown Phone Unavailable Care Team Providers Care Rn Forensic Name Role Phone Shahram Mccallum MD PCP Unavailable Reason for Visit * Reason Comments Medication Refill Encounter Details Care Team Description Date Type Department Shahram Mccallum MD NO ADDRESS ON FILE 08/30/2012 Refill [facility] Primar y Care [address] [phone] Social History Date Tobacco Use Types Packs/Day [...]
--- OUTSIDE RECORDS SUMMARY | 2020-03-24 14:32 | XMS REPORT | Encounter Summary ---
Author Author [facility] Organization [facility] Address Unknown Phone Unavailable Care Team Providers Care Crown Perforator Operator Name Role Phone Shahram Mccallum MD PCP Unavailable Reason for Visit * Auth/Cert Referred By Contact Referred To Contact Status Reason Specialty Diagnoses / Procedures [facility] [address] [place] [address] Closed Home Health Encounter Details Care Team Description Date Type Department Karen Booker RN SN - HOME VISIT 09/06/2012 Home Care Visit [facility] [address] [place] [address] Social History Date Tobacco Use [...] of Care Monitor/ed 08/03/2012 Disciplines: luis e/giorgi Mcfp force medical appointmen t compliance . [...] infection, home safety and medications. Visit on 09/05/2012 by Karen Booker RN [[id number]] at 09/06/2012 8:12:23 AM Medication media planner set up for one week. Medication administration Problem: Completed Description: Medication Patient to take s medications from medication box set up by SN. Medication box Problem: Completed Description: Medication Fill Medication media planner s weekly. Skilled assessment Problem: Completed [...] Health Visit - Actions and Narratives Medication media planner filled with regularl y scheduled medications and also with walt (new script). Patient was in hospital in [facility] for observation due to chest pain and shortness of breath. During visit patient all of the sudden started having pain in upper abdomen that then moved up to middle of chest with pain and pre ssure. This was followed by skin becoming cold and clammy, shortness of breath and then vomited X1 . Called and spoke with Dr. Mccallum and he wants me to call EMS to pick patient up and to call card iologist (who is at [facility] today) to evaluate patient in ER. Called 911 for ambulance transpo rt and then spoke with Dr. Merritt nurse and he will see patient in ER. Report given to EMS when they arrived. Patient transported by ambulance to [facility] ER. documented in this encounter
--- OUTSIDE RECORDS SUMMARY | 2020-03-24 14:32 | XMS REPORT | Encounter Summary ---
Author Author [facility] Organization [facility] Address Unknown Phone Unavailable Care Team Providers Care Bolting Machine Operator Name Role Phone Shahram Mccallum MD PCP Unavailable Reason for Visit * Auth/Cert Referred By Contact Referred To Contact Status Reason Specialty Diagnoses / Procedures [facility] [address] [place] [address] Closed Home Health Encounter Details Care Team Description Date Type Department Karen Booker RN SN - HOME VISIT 09/02/2012 Home Care Visit [facility] [address] [place] [address] Social [...] Reading Time Taken Comments Vital Sign 136/74 09/02/2012 2:00 PM CDT Blood Pressure - - Pulse 36.2 C (97.2 F) 09/02/2012 2:00 PM CDT Temperature 20 09/02/2012 2:00 PM CDT Respiratory Rate - - [...] Continuum of Care Monitor/ed 08/03/2012 Disciplines: michelleate/rein Care Home force medical appointmen t compliance [...] infection, home safety and medications. Visit on 09/02/2012 by Karen Booker RN [[id number]] at 09/04/2012 7:07:17 PM Med box not due to be filled until Wednesday Medication administration Problem: Completed Description: Medication Patient to take s medications from medication box set up by SN. Medication box Problem: Completed Description: Medication Fill Medication c4 planner s weekly. Skilled assessment Problem: Completed [...] Home Health Visit - Actions and Narratives Post void catheterization done with 400 cc yellow urine returned. Catheter not left in as orders were to leave in if more than 600cc returned . Patient had received call from Dr. Merritt (principal android developer) office and he reported symptoms that he has been having in last couple of weeks and Dr Oconnor wants him brought to ER in [place] for an eval uation. Found a friend to take him to [place] for evaluation. documented in this encounter
--- OUTSIDE RECORDS SUMMARY | 2020-03-24 14:33 | XMS REPORT | Encounter Summary ---
Author Author [facility] Organization [facility] Address Unknown Phone Unavailable Care Team Providers Care Overlock Collar Setter Name Role Phone Shahram Mccallum MD PCP Unavailable Reason for Visit * Reason Comments Breathing Problem worsening chronic dyspnea t yessica along with diaphoresis. State he did have some pain in left arm earlier that was better after nitro sl. 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 Encounter Details Care Team Description Date Type Department Urinary retention; Bradycardia 08/30/2012 Emergency [facility] Emergency Department [address] [phone] Social History Date Tobacco Use Types Packs/Day [...] Signs Reading Time Taken Comments Vital Sign 122/53 08/30/2012 1:05 PM CDT Blood Pressure 53 08/30/2012 1:05 PM CDT Pulse 36.5 C (97.7 F) 08/30/2012 12:45 PM CDT Temperature 20 08/30/2012 1:05 PM CDT Respiratory Rate 97% 08/30/2012 12:45 PM CDT Oxygen Saturation - - Inhaled Oxygen Concentration 98.9 kg (218 lb) 08/30/2012 12:45 PM CDT Weight 167.6 cm (5' 6") 08/30/2012 12:45 PM CDT Height 35.19 08/30/2012 12:45 PM CDT Body Mass Index documented in this encounter Discharge Instructions * Patient Instructions* Henryk Scanning, Him - 09/01/2012 1:53 PM CDT Electronically signed by Bong El Aok Transcriptions Incoming at 2 1:53 PM CDT * Additional Instructions* Sybil Henry APRN - 08/30/2012 STOP Reglan (Metoclopromide) Make Sure that dose of Metoprolol for the next week is 12.5mg daily only!! Check Pulse Daily and log. Remove Catheter morning. Wednesday morning check Post Void Residual Urine via Catheter or bladder scan. Call Dr Mccallum with your Findings on Wednesday. * Attachments The following attachments cannot be sent through Care Everywhere.* ACUTE URINARY RETENTION: AFTER YOUR VISIT TO THE EMERGENCY ROOM (BRITISH) documented in this encounter Medications at Time of Discharge Start Date End Date Medication Sig Dispensed Refills 08/30/2012 blood sugar diagnostic In the am & 1 Package 0 (ACCU-CHEK ACTIVE TEST) pm prn Misc Strp 12/29/2007 BETIMOL 0.5 % OP Drop Administer 1 0 Drop in both eyes 2 times daily. 08/30/2012 12/05/2012 zolpidem (AMBIEN) 10 mg Take 1 Tab by 30 Tab 2 Oral tablet mouth nightly as needed for Insomnia. 08/24/2012 2012 metoclopramide HCl Take 1 Tab by 40 Tab 0 (REGLAN) 5 mg Oral tablet mouth 4 times daily before meals and at bedtime for 10 days. 08/24/2012 09/05/2012 metoprolol succinate ER Take 0.5 Tabs 30 Tab 0 24 hour (TOPROL XL) 25 mg by mouth Oral tablet daily. 03/14/2013 insulin glargine (LANTUS) Inject 30 [...] 30 Cap 11 Oral capsule mouth daily. 04/19/2012 09/05/2012 phenytoin (PHENYTEK) 200 Take 1 Cap by 60 Cap 5 mg Oral Cap mouth 2 times daily. In the morning and at bedtime. 03/01/2012 03/21/2013 clopidogrel (PLAVIX) 75 Take 1 Tab by 30 Tab 11 mg Oral Tab mouth daily. 02/23/2012 02/28/2013 loratadine (CLARITIN) 10 Take 1 Tab by 30 Tab 11 mg Oral tablet mouth daily. 09/05/2012 simvastatin (ZOCOR) 80 mg Take 40 mg by 0 Oral tablet mouth Daily LATE. 12/22/2011 12/27/2012 esomeprazole (NEXIUM) 40 Take 1 [...] of this encounter Procedure Notes * Willy Chaves, [facility] - 09/02/2012 12:55 PM CDT Associated Order(s): EKG 12-LEAD Electronically signed by Sienna, [facility] Aok Transcriptions Incoming at 2 12:55 PM CDT * David Ferrer MD - 08/31/2012 12:29 PM CDT Associated Order(s): EKG 12-LEAD [facility]. [address] [place] [address]. [place], [place] [address] EKG OLIVERIO TINSLEY OU [id number] 08/30/12 at 1246. The rhythm is slow, r egular, supraventricular in origin with a rate of 45 beats per minute. Reproduci ble P waves are not seen preceding QRS complexes. Q waves are noted in limb lead III without abnormal Q waves in leads II or aVF. T waves are flattened to inver roma in lateral limb leads. Compared with previous tracing dated August 09, the rhythm mechanism is sinus in origin previously. Complexes are similar. El ectrical axis has shifted to normal currently. Diagnosis: 1) Supraventricular rh ythm, possibly atrial fibrillation or sinus arrest with junctional escape rhythm , rate 45 beats per minute. 2) Borderline inferior limb lead Q waves, probably w ithin normal limits. 3) Nonspecific T wave changes. Dictated by JaymeW. Dictated by: EKG DD 08/31/12 TD 08/31/12/LRG EKG REPORT # [id number] ORDER # documented in this encounter ED Notes * Candido Wallace RN - 08/30/2012 2:30 PM CDT Bladder scan performed on the patient showing 687 ml on the bladder scanner. Pt tolerated this procedure well. * Shahram Henry RN - 08/30/2012 1:02 PM CDT Pt sent to ED by rn due to bradycardia and being sweaty today. * Sybil Henry APRN - 08/30/2012 12:52 PM CDT HISTORY OF PRESENT ILLNESS Oliverio Tinsley, a 61 y.o. male presents to the ED with a Chief Complaint of Br eathing Problem HPI Comments: Recurrent dyspnea, vague abdominal pain. Saw Dr Guadarrama in office , was given reglan, phenergan and told to decrease metoprolol to 1/2 da maribel r/t 25mg qd. Home health makes his trays up ahead of time, and pt cannot re call if change was made or additional 1/2 added. Today pt had the dyspnea, ongo ing, worse with activity, vague abdominal pain, diaphoresis, left arm pain and c hest pain today. HH evaluated pt instructed pt to come to ed, on arrival denies any pain. Patient is a 61 y.o. male presenting with difficulty breathing. The history is p rovided by the patient. Breathing Problem This is a recurrent problem. Associated symptoms include chest pain, vomiting, a bdominal pain and leg swelling (chronic, mild). Pertinent negatives include no f ever, no cough and no rash. REVIEW OF SYSTEMS Review of Systems Constitutional: Negative for fever and chills. HENT: Negative for congestion. Respiratory: Positive for shortness of breath. Negative for cough. Cardiovascular: Positive for chest pain and leg swelling (chronic, mild). Negati ve for palpitations. Gastrointestinal: Positive for nausea, vomiting and abdominal pain. Negative for diarrhea and constipation. Genitourinary: Negative for dysuria and difficulty urinating. Skin: Negative for rash. Neurological: Negative for dizziness and light-headedness. Psychiatric/Behavioral: Negative for confusion. PAST MEDICAL HISTORY REVIEWED Past Medical History [...] 02/01/2009 COLONOSCOPY performed by MARY MOORE at [facility] OR Hx hernia repair 1988 And age 4 Hx lap cholecystectomy 05/17/07 Hx coronary artery bypass graft Hx heart catheterization 04/10 With angioplasty, 2 stents Pr lap,appendectomy 05/28/2012 APPENDECTOMY LAPAROSCOPIC performed by Mary Moore MD at [facility] OR Pr repair umbilical colleen,4+y/o,reduc 05/28/2012 HERNIA UMBILICAL REPAIR performed by Mary Moore MD at [facility] OR Family History [...] Patient Active Problem List Diagnoses Date Noted Tendonitis of foot 07/14/2012 Acute appendicitis 05/28/2012 Status post laparoscopic appendectomy 05/28/2012 Umbilical hernia without mention of obstruction or gangrene 05/28/2012 MRSA (methicillin resistant staph aureus) culture positive 09/12/2010 Cellulitis 09/10/2010 Personal History of Colonic Polyps 02/06/2009 Tubular Adenoma 02/05/2009 Hyperlipidemia 11/12/2008 Anemia 11/12/2008 DM w/o complication type I Cor athrscl-uns vessel Unspecified essential hypertension Other Convulsions Chronic airway obstruction, not elsewhere classified BPH w/o Urinary Obs/LUTS Neurogenic Bladder, NOS Unspecified Glaucoma Bipolar Disorder, Unspecified ALLERGIES [...] Drop in both eyes 2 times daily. CLOPIDOGREL (PLAVIX) 75 MG ORAL TAB Take [...] 1 Tab by mouth 3 times daily. METOCLOPRAMIDE HCL (REGLAN) 5 MG ORAL TABLET Take 1 Tab by mouth 4 times conor ly before meals and at bedtime for 10 days. METOPROLOL SUCCINATE ER 24 HOUR (TOPROL XL) 25 MG ORAL TABLET Take 0.5 Tabs by mouth daily. MULTIVITAMIN PO Take 1 Tab by mouth daily with lunch. NITROGLYCERIN (NITROSTAT) 0.[address] 1 Tab under tongue ev len 5 minutes as needed for Chest Pain. OXYCODONE-ACETAMINOPHEN (PERCOCET) 10-325 MG ORAL TAB Take 1 Tab by mouth ev len 4 hours as needed for Pain. PHENYTOIN (PHENYTEK) 200 MG ORAL CAP Take 1 Cap by mouth 2 times daily. In t he morning and at bedtime. PIOGLITAZONE (ACTOS) 30 MG ORAL TABLET Take [...] 4 hours as needed for P ain. Medications Modified during this Encounter Modified Medication Previous Medication BLOOD SUGAR DIAGNOSTIC (ACCU-CHEK ACTIVE TEST) MISC STRP ACCU-CHEK ACTIVE TEST Strp In the am & pm prn by See Admin Instructions route 2 times daily. In the am & pm prn ZOLPIDEM (AMBIEN) 10 MG ORAL TABLET zolpidem (AMBIEN) 10 mg Oral tablet Take 1 Tab by mouth nightly as needed for Insomnia. Take 1 Tab by mouth n ightly as needed for Insomnia. Medications Discontinued during this Encounter PHYSICAL EXAM Initial Vitals BP 08/30/12 1245 135/52 mmHg Pulse 08/30/12 1245 48 Resp 08/30/12 1245 24 Temp 08/30/12 1245 97.7 F (36.5 C) Temp src 08/30/12 1245 Tympanic SpO2 08/30/12 1245 97 % Physical Exam Constitutional: He is oriented to person, place, and time. He appears well-devel oped and well-nourished. Neck: Normal range of motion. Neck supple. Cardiovascular: Normal rate and regular rhythm. Murmur heard. Pulmonary/Chest: Effort normal. Abdominal: Soft. There is generalized tenderness. There is no rigidity, no guard ing, no tenderness at McBurney's point and negative Townsend's sign. Musculoskeletal: Normal range of motion. He exhibits edema (trace). Neurological: He is alert and oriented to person, place, and time. Skin: Skin is warm and dry. Psychiatric: He has a normal mood and affect. His behavior is normal. DIAGNOSTICS LAB: Results for orders placed during the hospital encounter of 08/30/12 (from the [facility] 24 hour(s)) CBC WITH MANUAL DIFFERENTIAL Component Value Range BASOPHILS 1 0 - 2 %Manual BANDS 6 0 - 22 %Manual NEUTROPHILS, SEG 62 30 - 68 %Manual LYMPHOCYTES 29 14 - 50 %Manual MONOCYTE 2 0 - 11 %Manual PLATELET EST. Normal WBC ESTIMATE Normal WBC 6.98 3.0 - 10.4 x10E3 RBC 4.53 4.15 - 5.75 x10E6 HEMOGLOBIN 12.8 (*) 13.8 - 17.4 g/dL HEMATOCRIT 39.0 38.6 - 49.4 % MCV 86.0 79 - 100 fL MCH 28.2 28 - 34 pg MCHC 32.8 31 - 35 g/dL RDW 14.0 12.1 - 14.1 % PLATELETS 307 148 - 408 x10E3 MPV 7.3 (*) 7.4 - 10.6 fL NEUTROPHILS 59.7 43 - 73 % LYMPHOCYTES 31.8 19 - 47 % MONOCYTES 5.5 3 - 9 % EOSINOPHILS 2.7 0 - 6 % BASOPHILS 0.3 0 - 1.2 % NEUTROPHIL ABSOLUTE 4.17 1.3 - 7.6 x10E3 LYMPHOCYTE ABSOLUTE 2.23 0.6 - 4.9 x10E3 MONOCYTE ABSOLUTE 0.38 0.1 - 0.9 x10E3 EOSINOPHIL ABSOLUTE 0.19 0.0 - 0.2 x10E3 BASOPHILS ABSOLUTE 0.02 0 - 0.1 x10E3 COMPREHENSIVE METABOLIC PANEL Component Value Range GLUCOSE 101 (*) 70 - 100 mg/dl BUN 27.0 (*) 7 - 20 mg/dl CREATININE 1.09 0.8 - 1.3 mg/dl BUN/CREAT RATIO 24.8 (*) 10 - 20 GFR 73 >60 ml/min SODIUM 135 134 - 145 mmol/L POTASSIUM 4.6 3.3 - 4.8 mmol/L CHLORIDE 102 98 - 107 mmol/L CO2 21.6 (*) 22 - 31 mmol/L ANION GAP 16 4 - 20 CALCIUM 8.5 8.5 - 10.1 mg/dl ALBUMIN 3.8 3.4 - 5.0 g/dl TOTAL PROTEIN 6.7 6.4 - 8.2 g/dl GLOBULIN (CALC) 2.9 ALBUMIN/GLOBULIN RATIO 1.3 BILIRUBIN TOTAL 0.2 <1.1 mg/dl ALKALINE PHOSPHATASE 62 50 - 136 IU/L AST 22 10 - 40 IU/L ALT 34 25 - 70 IU/L BRAIN NATRIURETIC PEPTIDE, BNP OR PROBNP Component Value Range BRAIN NATRIURETIC PEPTIDE 235 (*) 0 - 125 pg/ml MYOGLOBIN Component Value Range MYOGLOBIN, PLASMA 35 16 - 97 ng/ml TROPONIN Component Value Range TROPONIN I LESS THAN 0.04 0 - 0.4 ng/ml PROTIME-INR Component Value Range PROTIME 12.1 (*) 10.1 - 11.5 Sec INR 1.12 (*) 2.0 - 3.0 URINALYSIS WITH REFLEX CULTURE Component Value Range GLUCOSE UA Negative Negative mg/dl BILIRUBIN UA Negative Negative KETONES UA Negative Negative mg/dl SPECIFIC GRAVITY UA 1.009 1.002 - 1.030 PH UA 6.5 PROTEIN UA Negative Negative mg/dl UROBILINOGEN UA <2.0 0.2 - 1.0 EU/dl NITRITE UA Negative Negative BLOOD UA Negative Negative LEUKOCYTE ESTERASE UA Trace (*) Negative COLOR UA Yellow CLARITY UA Clear WBC UA 2-5 0 - 5 /HPF RBC UA 2-5 0 - 2 /HPF BACTERIA UA Rare Negative /HPF MUCOUS, URINE Light EPITHELIAL CELLS, URINE 1+ squamous POC GLUCOSE Component Value Range POC GLUCOSE 84 70 - 110 mg/dl POC GLUCOSE GRAPH VALUE 84 70 - 110 mg/dl RADIOLOGY: XR CHEST PA OR AP Radiologist Impression: Impression: No acute cardiopulmonary disease. CT ABDOMEN PELVIS WO CONTRAST Radiologist Impression: IMPRESSION: Large left renal pelvis stone without obstr uction. Postsurgical changes. EKG: NSB 45 PROCEDURES Procedures Bladder scan with 700cc urine REEVALUATION Pt pleasant, active, cheerful in ed. No c/o. MEDICAL DECISION MAKING AND PLAN OF longterm, stop reglan, make sure dose of bb is 12.5mg as decreased per dr guadarrama, angel o not think this dose was changed. Keep sanchez to dd, remove morning, c ath for residual Wednesday, may need urology referral. Pulse daily per home health , call dr mccallum Wednesday with pulses and urine residual results. . New Prescriptions for this Encounter Last vitals BP 122/53 | Pulse 53 | Temp(Src) 97.7 F (36.5 C) (Tympanic) | R barbara 20 | Ht 5' 6" (1.676 m) | Wt 98.884 kg | BMI 35.19 kg/m2 | SpO2 97% Coding Medications Administered During the ED Stay from 08/30/2012 1236 to 08/30/2012 1 538 Date/Time Order Dose Route Action 08/30/2012 1257 aspirin (AMELIA CHEWABLE) chew tablet 324 mg 324 mg Oral Given CLINICAL IMPRESSION Encounter Diagnoses Name Primary? Urinary retention Bradycardia CASE DISCUSSED Dr Mccallum PATIENT COUNSELING Diagnostics reviewed and questions answered. Diagnosis, treatment options and p brianna of care discussed with understanding verbalized. DISPOSITION, EDUCATION AND MEDICATION RECONCILIATION Medications reconciled. See after visit summary for patient education on discha rged patients. documented in this encounter Miscellaneous Notes * Scanned Form - Aok Scanning, Him - 08/31/2012 1:26 PM CDT Electronically signed by Interface, Bong Aok Transcriptions Incoming at 2 1:26 PM CDT documented in this encounter Plan of Treatment Not on filedocumented as of this encounter Procedures Comments Procedure Name Priority Date/Time Associated Diag nosis EKG 12-LEAD Stat 09/02/2012 12:55 PM CDT CARDIAC ENZYMES Stat 08/31/2012 12:50 AM CDT TROPONIN Stat 08/31/2012 12:50 AM CDT CARDIAC INTERPRETATION (6 Stat 08/30/2012 HR) 6:50 PM CDT TROPONIN Stat 08/30/2012 6:50 PM CDT CARDIAC INTERPRETATION (3 Stat 08/30/2012 HR) 3:50 PM CDT TROPONIN Stat 08/30/2012 3:50 PM CDT MYOGLOBIN Stat 08/30/2012 3:50 PM CDT POC GLUCOSE Routine 08/30/2012 3:28 PM CDT URINALYSIS WITH REFLEX Stat 08/30/2012 CULTURE 2:[address] ABDOMEN PELVIS WO Stat 08/30/2012 CONTRAST 2:02 PM CDT XR CHEST PA OR AP 1 VW Stat 08/30/2012 1:39 PM CDT PROTIME-INR Stat 08/30/2012 1:20 PM CDT CBC WITH MANUAL Stat 08/30/2012 DIFFERENTIAL 12:51 PM CDT TROPONIN Stat 08/30/2012 12:51 PM CDT BRAIN NATRIURETIC Stat 08/30/2012 PEPTIDE, BNP OR PROBNP 12:51 PM CDT MYOGLOBIN Stat 08/30/2012 12:51 PM CDT COMPREHENSIVE METABOLIC Stat 08/30/2012 PANEL 12:51 PM CDT documented in this encounter Results * EKG 12-LEAD (09/02/2012 12:55 PM CDT) Narrative Performed At This result has an attachment that is n ot available. Transcriptions David Bernard MD - 08/31/2012 12:29 PM CDT [facility], [address] [place], [place] [address] EKG ALVINAOLIVERIO TOM SAGAR OU [id number] 08/30/12 at 1246. The rhythm is slow, regular, supraventricular in origin with a rate of 45 beats per minute. Reproducible P waves are not seen preceding QRS complexes. Q waves are noted in limb lead III without abnormal Q waves in leads II or aVF. T waves are flattened to inverted in lateral limb leads. Compared with previous tracing dated August 09 2012, the rhythm mechanism is sinus in origin previously. Complexes are similar. Electrical axis has shifted to normal currently. Diagnosis: 1) Supraventricular rhythm, possibly atrial fibrillation or sinus arrest with junctional escape rhythm, rate 45 beats per minute. 2) Borderline inferior limb lead Q waves, probably within normal limits. 3) Nonspecific T wave changes. Dictated by S.V.W. Dictated by: EKG DD 08/31/12 TD 08/31/12/LRG EKG REPORT # [id number] ORDER # 09/02/2012 12:55 PM CDT * TROPONIN (08/31/2012 12:50 AM CDT) TROPONIN I Test not performedComment: 0 - 0.4 ng/ml [facility] [place], [place] LABORATORY ACCT#[id number], ,,,, [facility] Specimen Narrative Performed At CARDIAC TROP-12HR TROP-12 HR from 1023:[id number]. [facility] CARDIAC Final: FINAL from 1023:[id number]. [facility] Performing Organization Address [facility] Ph one [facility] LABORATORY SERVICES CLIA# [id number] GAB JEFFERSON [phone] - [facility] FAYE [address] [place] [address] LABORATORY SERVICES CLIA# [id number] [place] [address] * CARDIAC ENZYMES (08/31/2012 12:50 AM CDT) INTERPRETATION See below. [facility] Comment: LABORATORY INTERPRETATION - 08/31/12 0747 [facility] Normal initial cardiac marker FAYE results. Linda Elise. [facility] [place] ACCT#[id number], ,,,, Specimen Blood specimen (specimen) Narrative Performed At CARDIAC TROP-12HR TROP-12 HR from 1023:[id number]. [facility] LABORATORY CARDIAC Final: FINAL from 1023:[id number]. SERVICES - [place] Performing Organization Address [facility] one [place] [facility] LABORATORY SERVICES CLIA# [id number] GAB JEFFERSON [facility] [phone] [facility] FAYE [address] [place] [address] LABORATORY SERVICES CLIA# [id number] [place] [address] * CARDIAC INTERPRETATION (6 HR) (08/30/2012 6:50 PM CDT) INTERPRETATION Test not performedComment: [facility] [place] [facility] ACCT#[id number], ,,,, SERVICES - [facility] FAYE Specimen Narrative Performed At CARDIAC TROP-6HR TROP-6 HR from 1023:[id number]. [facility] CARDIAC Interim: CAR6 from 1023:[id number]. SERVICES - [facility] PATIENT WENT HOME FAYE Performing Organization Address [facility] Ph one [place] [facility] LABORATORY SERVICES CLIA# [id number] GAB JEFFERSON [facility] [phone] LABORATORY SERVICES CLIA# [id number] [place] [address] * TROPONIN (08/30/2012 6:50 PM CDT) TROPONIN I Test not performedComment: 0 - 0.4 ng/ml [facility] ACCT#[id number], ,,,, SERVICES - [facility] FAYE Specimen Narrative Performed At CARDIAC TROP-6HR TROP-6 HR from 1023:[id number]. [facility] LABORATORY CARDIAC Interim: CAR6 from 1023:[id number]. [facility] PATIENT WENT HOME FAYE Performing Organization Address [facility] one [facility] LABORATORY SERVICES CLIA# [id number] [place] [address] [address] LABORATORY SERVICES CLIA# [id number] [place] [address] * CARDIAC INTERPRETATION (3 HR) (08/30/2012 3:50 PM CDT) INTERPRETATION Test not performedComment: [facility] ACCT#[id number], ,,,, SERVICES - [facility] FAYE Specimen Narrative Performed At CARDIAC NYLA-3HR NYLA-3 HR from 1023:[id number]. [facility] CARDIAC TROP-3HR TROP-3 HR from 1023:[id number]. SERVI [facility] - [facility] CARDIAC Interim: CAR3 from 1023:[id number]. FAYE PATIENT WENT HOME Performing Organization Address [facility] one [facility] LABORATORY SERVICES CLIA# [id number] [place] [address] [address] LABORATORY SERVICES CLIA# [id number] [place], [place] [id number] [place] [address] * TROPONIN (08/30/2012 3:50 PM CDT) TROPONIN I Test not performedComment: 0 - 0.4 ng/ml [facility] [employer] [facility] [facility] ACCT#[id number], ,,,, SERVICES [facility] FYAE Specimen Narrative Performed At CARDIAC NYLA-3HR NYLA-3 HR from 1023:[id number]. [facility] CARDIAC TROP-3HR TROP-3 HR from 1023:[id number]. SERVI [facility] - [facility] CARDIAC Interim: CAR3 from 1023:[id number]. FAYE PATIENT WENT HOME Performing Organization Address [facility]/Zipcode Ph one Number [facility] LABORATORY SERVICES CLIA# [id number] GAB JEFFERSON [phone] - [place] [address] [place] [address] LABORATORY SERVICES CLIA# [id number] [place] [address] * MYOGLOBIN (08/30/2012 3:50 PM CDT) MYOGLOBIN, Test not performedComment: 16 - 97 ng/ml MAN[facility]EL [facility] [place] LAB[facility] ACCT#[id number], ,,,, SERVICES - [place] Specimen Narrative Performed At CARDIAC NYLA-3HR NYLA-3 HR from 1023:[id number]. [facility] ABORATORY CARDIAC TROP-3HR TROP-3 HR from 1023:[id number]. SERVI NICK - [facility] CARDIAC Interim: CAR3 from 1023:[id number]. FAYE PATIENT WENT HOME Performing Organization Address City/[facility] Ph one [facility] LABORATORY SERVICES CLIA# [id number] GAB JEFFERSON [phone] - [facility] FAYE [address] [place] [address] LABORATORY SERVICES CLIA# [id number] [place] [address] * POC GLUCOSE (08/30/2012 3:28 PM CDT) [facility] Signature POC GLUCOSE 84Comment: Luigi Kaur, 70 - 110 mg/dl [facility], Point of Care Site,,,, LABORATORY SERVICES - [place] POC GLUCOSE 84 70 - 110 mg/dl [facility] LABORATORY SERVICES - [place] Specimen Performing Organization Address City/[facility] Ph one [facility] LABORATORY SERVICES CLIA# [id number] GAB JEFFERSON [phone] - [facility] FAYE [address] [place] [address] LABORATORY SERVICES CLIA# [id number] [place] [address] * URINALYSIS WITH REFLEX CULTURE (08/30/2012 2:43 PM CDT) GLUCOSE UA Negative Negative mg/dl [facility] LABORATORY SERVICES - [place] BILIRUBIN UA Negative Negative [facility] LABORATORY SERVICES - [place] KETONES UA Negative Negative mg/dl [facility] LABORATORY SERVICES - [place] SPECIFIC 1.009 1.002 - 1.030 [facility] LABORATORY SERVICES - [place] PH UA 6.5 [facility] LABORATORY SERVICES - [place] PROTEIN UA Negative Negative mg/dl [facility] LABORATORY SERVICES - [place] UROBILINOGEN UA <2.0 0.2 - 1.0 EU/dl [facility] LABORATORY SERVICES - [place] NITRITE UA Negative Negative [facility] LABORATORY SERVICES - [place] BLOOD UA Negative Negative [facility] LABORATORY SERVICES - [place] LEUKOCYTE Trace (H) Negative [facility] ESTERASE UA LABORATORY SERVICES - [place] COLOR UA Yellow [facility] LABORATORY SERVICES - [place] CLARITY UA Clear [facility] - [place] WBC UA 2-5 0 - 5 /HPF [facility] LABORATORY SERVICES - [place] RBC UA 2-5 0 - 2 /HPF [facility] LABORATORY SERVICES - [place] BACTERIA UA Rare Negative /HPF [facility] LABORATORY SERVICES - [place] MUCOUS, URINE Light /LPF [facility] LABORATORY SERVICES - [place] EPITHELIAL 1+ squamousComment: MERC CELLS, URINE [facility] LABORATORY ACCT#[id number], ,,,, SERVICES - [place] Specimen Urine, clean catch Performing Organization Address City/State/[place] Ph one Number [facility] LAB[facility]ORY SERVICES CLIA# [id number] [place], [place] [address] [address] LABORATORY SERVICES CLIA# [id number] [place] [address] - [address] * CT ABDOMEN PELVIS WO CONTRAST (08/30/2012 2:02 PM CDT) Specimen Impressions Performed At IMPRESSION: Large left renal pelvis stone without obs truction. INTERFACE SYSTEM Postsurgical changes. Narrative Performed At CT abdomen and pelvis without contrast INTERFACE SYS TEM HISTORY: Pain Multiple axial images retained to the a bdomen and pelvis with with no contrast given. Abdomen: The lung bases appear normal. The liver, spleen, and pancreas appear normal. The patient is status po st cholecystectomy. The right kidney appears normal. There is a promi nent renal pelvis on the left. There is a 1.4 x 1.0 cm stones seen wit hin the renal pelvis. No hydronephrosis is seen. There is no hyd roureter. The visualized portion the bowel is normal. Pelvis: The bladder appears distended. The bladder is extends to the level of the umbilicus. There are ather osclerotic changes. The patient appears to be status post appendectomy. The visualized portion of the bowel is normal. No abnormal fluid katharine ections or masses seen. Procedure Note Interface, [facility] Incoming Radiology Results - 08/30/2012 2:[address] abdomen and pelvis without contrast HISTORY: Pain Multiple axial images retained to the abdomen and pelvis with with no contrast given. Abdomen: The lung bases appear normal. The liver, spleen, and pancreas appear normal. The patient is status post cholecystectomy. The right kidney appears normal. There is a prominent renal pelvis on the left. There is a 1.4 x 1.0 cm stones seen within the renal pelvis. No hydronephrosis is seen. There is no hydroureter. The visualized portion the bowel is normal. Pelvis: The bladder appears distended. The bladder is extends to the level of the umbilicus. There are atherosclerotic changes. The patient appears to be status post appendectomy. The visualized portion of the bowel is normal. No abnormal fluid collections or masses seen. IMPRESSION IMPRESSION: Large left renal pelvis stone without obstruction. Postsurgical changes. Performing Organization Address [facility] one Number INTERFACE SYSTEM INTERFACE SYSTEM Refer to clinic/hospital department * XR CHEST PA OR AP (08/30/2012 1:39 PM CDT) Specimen Impressions Performed At Impression: No acute cardiopulmonary disease. INTE RFACE SYSTEM Narrative Performed At AP or PA chest INTERFACE SYSTEM Comparison: August 24 Clinical history: Chest pain. Findings: The patient is status post me jamarcus sternotomy for apparent CABG. The cardiac silhouette and pulmon rolando vascularity are within normal limits. There are no infiltrat es or masses seen. No evidence of pneumothorax. Procedure Note [facility], [facility] Incoming Radiology Results - 08/30/2012 1:58 PM CDT AP or PA chest Comparison: August 24 Clinical history: Chest pain. Findings: The patient is status post median sternotomy for apparent CABG. The cardiac silhouette and pulmonary vascularity are within normal limits. There are no infiltrates or masses seen. No evidence of pneumothorax. IMPRESSION Impression: No acute cardiopulmonary disease. Performing Organization Address [facility] one Number INTERFACE SYSTEM INTERFACE SYSTEM Refer to clinic/hospital department * PROTIME-INR (08/30/2012 1:20 PM CDT) PROTIME 12.1 (H) 10.1 - 11.5 Sec [facility] [place] INR 1.12 (L)Comment: 2.0 - 3.0 [facility] ACCT#[id number], ,,,, SERVICES - [place] Specimen Blood specimen (specimen) Performing Organization Address [facility] Ph one [facility] LABORATORY SERVICES CLIA# [id number] G[place] JEFF[place] [address] LABORATORY SERVICES CLIA# [id number] [place] [address] * TROPONIN (08/30/2012 12:51 PM CDT) TROPONIN I LESS THAN 0.04Comment: 0 - 0.4 ng/ml [facility] ACCT#[id number], ,,,, SERVICES - [place] Specimen Narrative Performed At CARDIAC NYLA-0HR NYLA-0 HR from [id number]. [facility] ABORAT[facility] CARDIAC TROP-0HR TROP-0 HR from [id number]. DEVANG ROMERO [place] Performing Organization Address [facility] Ph one [facility] LABORATORY SERVICES CLIA# [id number] [address] [facility] [phone] LABORATORY SERVICES CLIA# [id number] [place] [id number] [place] [address] * MYOGLOBIN (08/30/2012 12:51 PM CDT) MYOGLOBIN, 35Comment: [facility] 16 - 97 ng/ml M ERCY PLASMA ACCT#[id number], ,,,, LABORATORY SERVICES - [place] Specimen Narrative Performed At CARDIAC NYLA-0HR NYLA-0 HR from [id number]. SUGEYY L ABORATORY CARDIAC TROP-0HR TROP-0 HR from [id number]. DEVANG ROMERO [place] Performing Organization Address [facility] Ph one Number [facility] LABORATORY SERVICES CLIA# [id number] GAB JEFFERSON [address] [facility] FAYE [address] [place] [address] LABORATORY SERVICES CLIA# [id number] [place] [address] - [place] [address] [place] [address] * BRAIN NATRIURETIC PEPTIDE, BNP OR PROBNP (08/30/2012 12:51 PM CDT) BRAIN 235 (H)Comment: 0 - 125 pg/ml [facility] NATRIURETIC [facility] LABORATORY PEPTIDE ACCT#[id number], ,,,, SERVICES - [place] Specimen Blood specimen (specimen) Performing Organization Address City/State/Zipcode Ph one Number [facility] LABORATORY SERVICES CLIA# [id number] [place] [address] - [place] [address] [place] [address] LABORATORY SERVICES CLIA# [id number] [place] [address] - [address] * COMPREHENSIVE METABOLIC PANEL (08/30/2012 12:51 PM CDT) GLUCOSE 101 (H) 70 - 100 mg/dl [facility] - [place] BUN 27.0 (H) 7 - 20 mg/dl [facility] - [place] CREATININE 1.09 0.8 - 1.3 mg/dl [facility] LABORATORY SERVICES - [place] BUN/CREAT RATIO 24.8 (H) 10 - 20 [facility]ATORY SERVICES - [place] GFR 73 >60 ml/min [facility] SERVICES - [place] SODIUM 135 134 - 145 mmol/L [facility] - [place] POTASSIUM 4.6 3.3 - 4.8 mmol/L [facility] Comment: LABORATORY SPECIMEN HEMOLYZED, RESULT MAY SERVICES - [place] INCREASED BY AT LEAST 10%. FAYE 1+ CHLORIDE 102 98 - 107 mmol/L [facility] - [place] CO2 21.6 (L) 22 - 31 mmol/L [facility] - [place] ANION GAP 16 4 - 20 [facility] LAB[facility] SERVICES - [place] CALCIUM 8.5 8.5 - 10.1 mg/dl [facility] - [place] ALBUMIN 3.8 3.4 - 5.0 g/dl [facility] - [place] TOTAL PROTEIN 6.7 6.4 - 8.2 g/dl [facility] - [place] GLOBULIN (CALC) 2.9 [facility] - [place] ALBUMIN/GLOBULI 1.3 [facility] N [facility]ATIO LABORATORY SERVICES - [place] BILIRUBIN TOTAL 0.2 <1.1 mg/dl [facility] - [facility] FAYE ALKALINE 62 50 - 136 IU/L [facility] LABORATORY SERVICES - [place] AST 22 10 - 40 IU/L [facility] Comment: LABORATORY SPECIMEN HEMOLYZED, RESULT MAY SERVICES - [facility] BE INCREASED BY AT LEAST 10%. FAYE 1+ ALT 34Comment: [facility] L[facility]NN 25 - 70 IU/L M ERCY ACCT#[id number], ,,,, LABORATORY SERVICES - [place] Specimen Blood specimen (specimen) Performing Organization Address City/State/Zipcode Ph one Number [facility] LABORATORY SERVICES CLIA# [id number] [place] [address] - [place] [address] [place] [address] LABORATORY SERVICES CLIA# [id number] [place] [address] - [address] * CBC WITH MANUAL DIFFERENTIAL (08/30/2012 12:51 PM CDT) BASOPHILS 1 0 - 2 %Manual [facility] LAB[facility]ATORY SERVICES - [place] BANDS 6 0 - 22 %Manual [facility] LABORATORY SERVICES - [place] NEUTROPHILS, 62 30 - 68 %Manual [facility] SEG LABORATORY SERVICES - [facility] FAY[place] LYMPHOCYTES 29 14 - 50 %Manual [facility] LABORATORY SERVICES - [facility] FAY[facility] MONOCYTE 2 0 - 11 %Manual [facility] LABORATORY SERVICES - [place] PLATELET EST. Normal [facility]ATORY SERVICES - [place] WBC ESTIMATE Normal [facility] LABORATORY SERVICES - [place] WBC 6.98 3.0 - 10.4 x10E3 [facility] LAB[facility]ATORY SERVICES - [place] RBC 4.53 4.15 - 5.75 x10E6 [facility] LABORATORY SERVICES - [place] HEMOGLOBIN 12.8 (L) 13.8 - 17.4 g/dL [facility] LABORATORY SERVICES - [place] HEMATOCRIT 39.0 38.6 - 49.4 % [facility] LABORATORY SERVICES - [facility] FAYE MCV 86.0 79 - 100 fL [facility] LABORATORY SERVICES - [facility] FAYE MCH 28.2 28 - 34 pg [facility] LABORATORY SERVICES - [place] MCHC 32.8 31 - 35 g/dL [facility] LABORATORY SERVICES - [facility] FAY[facility] RDW 14.0 12.1 - 14.1 % [facility] LABORATORY SERVICES - [facility] FAY[place] PLATELETS 307 148 - 408 x10E3 [facility] LABORATORY SERVICES - [facility] FAY[facility] MPV 7.3 (L) 7.4 - 10.6 fL [facility] LABORATORY SERVICES - [facility] FAY[place] NEUTROPHILS 59.7 43 - 73 % [facility] - [place] LYMPHOCYTES 31.8 19 - 47 % [facility] - [place] MONOCYTES 5.5 3 - 9 % [facility] - [place] EOSINOPHILS 2.7 0 - 6 % [facility] - [place] BASOPHILS 0.3 0 - 1.2 % [facility] - [place] NEUTROPHIL 4.17 1.3 - 7.6 x10E3 [facility] LABORAT[facility] SERVICES - [place] LYMPHOCYTE 2.23 0.6 - 4.9 x10E3 [facility] - [place] MONOCYTE 0.38 0.1 - 0.9 x10E3 [facility] LABOR[facility] SERVICES - [place] EOSINOPHIL 0.19 0.0 - 0.2 x10E3 [facility] LABOR[facility] SERVICES - [place] BASOPHILS 0.02Comment: [facility] LYNN 0 - 0.1 x10E3 [facility] ABSOLUTE ACCT#[id number], ,,,, LABORATORY SERVICES - [place] Specimen Blood specimen (specimen) Performing Organization Address City/State/Zipcode Ph one Number [facility] LABORATORY SERVICES CLIA# [id number] [place] [address] - [address] LABORATORY SERVICES CLIA# [id number] [place] [address] - [address] documented in this encounter Visit Diagnoses Diagnosis Urinary retention Retention of urine, unspecified Bradycardia Other specified cardiac dysrhythmias documented in this encounter Administered Medications Action Date Dose Rate Site Medication Order MAR Action 08/30/2012 12:57 PM CDT 324 mg aspirin (AMELIA CHEWABLE) chew tablet 324 Given mg 324 mg, Oral, ONE TIME ONLY, 1 dose, 08/30/12 at 1300, Stat documented in this encounter
--- OUTSIDE RECORDS SUMMARY | 2020-03-24 14:33 | XMS REPORT | Encounter Summary ---
Author Author [employer] [facility] Organization [employer] [facility] Address Unknown Phone Unavailable Care Team Providers Care Order Packer Or Packager Name Role Phone Shahram Mccallum MD PCP Unavailable Reason for Visit * Reason Comments Chest Pain (Angina) * Auth/Cert Referred By Contact Referred To Contact Status Reason Specialty Diagnoses / Procedures [facility] Home Health [place] [id number] [place] [address] Closed Home Health Encounter Details Care Team Description Date Type Department Karen Booker RN SN - HOME VISIT 08/11/2012 [facility] [address] [place] [address] Social History Date Tobacco Use [...] Reading Time Taken Comments Vital Sign 128/74 08/11/2012 12:00 AM CDT Blood Pressure - - Pulse 36.6 C (97.8 F) 08/11/2012 12:00 AM CDT Temperature 20 08/11/2012 12:00 AM CDT Respiratory Rate - - [...] 12/05/2012 - COPD of dread Disciplines: and Correction apprehensi on Active - 3 problem interventions scheduled/documented in this visit Breathing Problems - COPD Inadequate 08/03/2012 Disciplines: breathing Correction pattern Active - 3 problem interventions scheduled/documented in this visit Failure to Comply With Behaviors 08/03/2012 Plan of Care of Disciplines: patient/ca Correction regiver that do not follow the plan of care. Active - 1 problem intervention scheduled/documented in this visit HH Continuum of Care Monitor/ed 08/03/2012 Disciplines: michelleate/giorgi Correction force medical appointmen t compliance . Identify and facilitate appropriat e discipline referrals. Active - 2 problem interventions scheduled/documented in this visit Injury Prevention - At risk 08/03/2012 Hypertension for Disciplines: injury: Correction related to internal factors resulting from complicati ons of hypertensi on Active - 4 problem interventions scheduled/documented in this visit Learning/Teaching Needs - Learning 08/03/2012 Diabetes and Disciplines: teaching Correction needs associated with diagnosis Active - 3 problem interventions scheduled/documented in this visit Learning/Teaching Needs - Lack of 08/03/2012 Hypertension knowledge Disciplines: re: Correction medical regimen related to controllin g/managing hypertensi on Active - 4 problem interventions scheduled/documented in this visit Medications Management 08/03/2012 Disciplines: of home Correction medication s Active - 2 problem interventions scheduled/documented in this visit Problems with Activity - Decreased 08/03/2012 COPD tolerance Disciplines: to normal Correction activities related to dyspnea and fatigue. Variance [...] from medication box set up by SN. Skilled assessment Problem: Completed medications Medication Description: [...] patient's copy of medication list as needed. Visit on 08/11/2012 by Karen Booker RN [[id number]] at 08/12/2012 9:47:33 AM Visit was extra SNV. med box not needed this visit. 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 Skilled assessment Problem: Completed activity intolerance Problems [...] Home Health Visit - Actions and Narratives Extra SNV today for assessment as emeka wilhelm was in observation bed overnight at [facility] for bradycardia and chest pain. Cardiac mann ts negative and patient was dismissed after overnight stay. Instructed patient on emergency managem ent of chest pain and how and when to report problems, go to ER if chest pain not relieved by rest o r nitros or if sharp stabbing chest pain present with radiation. Patient verbalized understan ding of these instructions. documented in this encounter
--- OUTSIDE RECORDS SUMMARY | 2020-03-24 14:33 | XMS REPORT | Encounter Summary ---
Author Author [facility] Organization [facility] Address Unknown Phone Unavailable Care Team Providers Care Clinical Sociologist Name Role Phone Shahram Mccallum MD PCP Unavailable Reason for Visit * Auth/Cert Referred By Contact Referred To Contact Status Reason Specialty Diagnoses / Procedures [facility] Home Health [facility] [address] [place] [address] Closed Home Health Encounter Details Care Team Description Date Type Department Karen Booker RN SN - HOME VISIT 08/23/2012 Home Care Visit [facility] [address] [place] [address] Social History Date Tobacco [...] Signs Reading Time Taken Comments Vital Sign 132/78 08/23/2012 12:00 PM CDT Blood Pressure - - Pulse 36.4 C (97.6 F) 08/23/2012 12:00 PM CDT Temperature 20 08/23/2012 12:00 PM CDT Respiratory Rate - - [...] Continuum of Care Monitor/ed 08/03/2012 Disciplines: michelleate/rein Detention force medical appointmen t compliance . [...] box set up by SN. 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 Medication box Problem: Completed Description: Medication Fill Medication marine air ground task force planners s weekly. Skilled assessment Problem: Completed medications [...] Health Visit - Actions and Narratives Medication Foreign Student Adviser filled with regularl y scheduled medications. Refills called in to [facility]. documented in this encounter
--- OUTSIDE RECORDS SUMMARY | 2020-03-24 14:33 | XMS REPORT | Encounter Summary ---
Author Author [facility] Organization [facility] Address Unknown Phone Unavailable Care Team Providers Care Engineer First Assistant Name Role Phone Shahram Mccallum MD PCP Unavailable Reason for Visit * Reason Comments Shortness of Breath pt reports this occurs jono y in morning and occasionally in the afternoon, pt reports dry heaves with the sob Encounter Details Care Team Description Date Type Department Claus Couch MD [address] [place] [address] Abdominal pain, generalized (Primary Dx) ; Bradycardia 08/24/2012 Office Visit [facility] Primar y Care [place] [address] [place] [address] Social History Date Tobacco Use [...] Signs Reading Time Taken Comments Vital Sign 104/54 08/24/2012 9:34 AM CDT Blood Pressure 62 08/24/2012 9:34 AM CDT Pulse - - Temperature - - Respiratory Rate 97% 08/24/2012 9:34 AM CDT RA Oxygen Saturation - - Inhaled Oxygen Concentration 98.9 kg (218 lb) 08/24/2012 9:34 AM CDT Weight 167.6 cm (5' 6") 08/24/2012 9:34 AM CDT Height 35.19 08/24/2012 9:34 AM CDT Body Mass Index documented in this encounter Progress Notes * Claus Couch MD - 08/24/2012 9:36 AM CDT HISTORY OF PRESENT ILLNESS Oliverio Dalton, a 61 y.o. male. Shortness of Breath This is a recurrent problem. The problem has been rapidly improving. Pertinent n egatives include no fever, no rhinorrhea, no cough, no chest pain, no vomiting, no abdominal pain and no leg swelling. this been going on for the last several weeks. The shortness of breath is assoc iated predominantly with abdominal pain he has a wave of abdominal pain with und erlying nausea nausea has been going on according to him for the last 6 months. He states it just comes on all of a sudden and then will not go away. Has been h aving some pain in the abdomen. Has had an ileus in the past. In addition has been having difficulties with bradycardia his pulse dropping zacarias n into the 40s REVIEW OF SYSTEMS Review of Systems Constitutional: Negative for fever, chills, activity change, appetite change and fatigue. HENT: Negative for hearing loss, congestion, facial swelling, rhinorrhea and sne ezing. Eyes: Negative for discharge and itching. Respiratory: Positive for shortness of breath. Negative for apnea, cough, chokin g and chest tightness. Cardiovascular: Negative for chest pain and leg swelling. Gastrointestinal: Negative for vomiting, abdominal pain, diarrhea and abdominal distention. Genitourinary: Negative for hematuria, flank pain and difficulty urinating. Musculoskeletal: Negative for back pain. Skin: Negative for color change. Neurological: Negative for dizziness, syncope, facial asymmetry and numbness. Psychiatric/Behavioral: Negative for behavioral problems and agitation. PHYSICAL EXAM BP 104/54 | Pulse 62 | Ht 5' 6" (1.676 m) | Wt 218 lb (98.884 kg) | BMI 35.19 kg /m2 | SpO2 97% Physical Exam Constitutional: He appears well-developed and well-nourished. HENT: Head: Normocephalic and atraumatic. Right Ear: External ear normal. Left Ear: External ear normal. Eyes: EOM are normal. Pupils are equal, round, and reactive to light. Neck: Normal range of motion. Cardiovascular: Normal rate, regular rhythm, normal heart sounds and intact dist al pulses. Pulmonary/Chest: Effort normal and breath sounds normal. Abdominal: Soft. Bowel sounds are normal. ASSESSMENT and PLAN: 1. Abdominal pain, generalized (789.07) XR ABDOMEN ACUTE SERIES W CXR 2. Bradycardia (427.89) Orders Placed This Encounter XR ABDOMEN ACUTE SERIES W CXR metoprolol succinate ER 24 hour (TOPROL XL) 25 mg Oral tablet DISCONTD: ondansetron (ZOFRAN ODT) 4 mg Oral TbDL metoclopramide HCl (REGLAN) 5 mg Oral tablet Will have him cut his metoprolol in half get an acute abdominal series on him to day start him on Reglan for 10 days explained to him why we do not keep him on a long-term basis follow up with Dr. Mccallum if no improvement documented in this encounter Plan of Treatment Not on filedocumented as of this encounter Results * XR ABDOMEN ACUTE SERIES W CXR (08/24/2012 10:10 AM CDT) Specimen Impressions Performed At IMPRESSION: Postoperative change of previous cholecys tectomy and INTERFACE SYSTEM probable appendectomy without acute abn ormality identified in the chest or abdomen. 1.4 cm calcific densi ty in the left mid abdomen consistent with renal calculus likely i n the left renal pelvis. If additional evaluation is warranted clin ically CT may be of benefit. Narrative Performed At Acute abdominal series: INTERFACE SYSTEM INDICATION: Abdominal pain Frontal view of the chest and supine an d upright views of the abdomen were obtained. There is mild cardiomegaly. There has been prior midline sternotomy and coronary artery bypass surgery. T here is no evidence of pneumonia or congestive failure or pleural effusi on. Supine and upright views of the abdomen demonstrate an unremarkable bowel gas pattern. There has been a prior cholecystectomy. There are postoperative changes noted with clips in the right lower quadrant. There is an oval calcific density in th e left mid abdomen at the level of L3-L4. This measures 1.[address] This was shown to represent a calculus in the left renal pelvis on the prior CT of 05/28/2012. Procedure Note Wally Sharpe MD - 08/24/2012 3:04 PM CDT Acute abdominal series: INDICATION: Abdominal pain Frontal view of the chest and supine and upright views of the abdomen were obtained. There is mild cardiomegaly. There has been prior midline sternotomy and coronary artery bypass surgery. There is no evidence of pneumonia or congestive failure or pleural effusion. Supine and upright views of the abdomen demonstrate an unremarkable bowel gas pattern. There has been a prior cholecystectomy. There are postoperative changes noted with clips in the right lower quadrant. There is an oval calcific density in the left mid abdomen at the level of L3-L4. This measures 1.4 cm in diameter. This was shown to represent a calculus in the left renal pelvis on the prior CT of 05/28/2012. IMPRESSION IMPRESSION: Postoperative change of previous cholecystectomy and probable appendectomy without acute abnormality identified in the chest or abdomen. 1.4 cm calcific density in the left mid abdomen consistent with renal calculus likely in the left renal pelvis. If additional evaluation is warranted clinically CT may be of benefit. Performing Organization Address City/State/Zipcode one Number INTERFACE SYSTEM INTERFACE SYSTEM Refer to clinic/hospital department documented in this encounter Visit Diagnoses Diagnosis Abdominal pain, generalized - Primary Bradycardia Other specified cardiac dysrhythmias documented in this encounter
--- OUTSIDE RECORDS SUMMARY | 2020-03-24 14:33 | XMS REPORT | Encounter Summary ---
Author Author [facility] Organization [facility] Address Unknown Phone Unavailable Care Team Providers Care Residential Builder Name Role Phone Shahram Mccallum MD PCP Unavailable Reason for Visit * Reason Comments Medication Review zofran not covered. Encounter Details Care Team Description Date Type Department Claus Couch MD [address] [place] [address] Medication Review (zofran not covered. ) 08/24/2012 Telephone [facility] Primar y Care [place] [address] [place] [address] Social History Date Tobacco Use [...] encounter Miscellaneous Notes * Telephone Encounter - Eleonora Hill - 08/24/2012 10:20 AM CDT Pharmacy called stating zofran not covered per Dr. Couch changed to phenergan 12.5 every 6 hrs prn. Pharmacy notified. Med list updated. documented in this encounter Plan of Treatment Not on filedocumented as of this encounter Visit Diagnoses Not on filedocumented in this encounter
--- OUTSIDE RECORDS SUMMARY | 2020-03-24 14:33 | XMS REPORT | Encounter Summary ---
Author Author [facility] Organization [facility] Address Unknown Phone Unavailable Care Team Providers Care Director Of Ancillary Services Name Role Phone Shahram Mccallum MD PCP Unavailable Reason for Visit * Reason Comments Medication Question What is correct dose Latus 20 units or 30units. Encounter Details Care Team Description Date Type Department Rosalinda Bal Medication Question (What is correct dos e Latus 20 units or 30units.) 08/19/2012 Telephone [facility] Primar Care [place] [address] [place] [address] Social History Date Tobacco Use [...] * Telephone Encounter - Rosalinda Bal - 08/19/2012 1:[address] Mccallum increased Lantus to 30 units hs at last visit. documented in this encounter Plan of Treatment Not on filedocumented as of this encounter Visit Diagnoses Not on filedocumented in this encounter
--- OUTSIDE RECORDS SUMMARY | 2020-03-24 14:33 | XMS REPORT | Encounter Summary ---
Author Author [facility] Organization [facility] Address Unknown Phone Unavailable Care Team Providers Care Manager Planning Name Role Phone Shahram Mccallum MD PCP Unavailable Encounter Details Care Team Description Date Type Department Shahram Mccallum MD NO ADDRESS ON FILE [facility], Lab Schedule 08/15/2012 [facility] General Encounter Laboratory Services [address] [address] Social History Date Tobacco Use [...] Date End Date Medication Sig Dispensed Refills 12/29/2007 BETIMOL 0.5 % OP Drop Administer 1 0 Drop in both eyes 2 times daily. 08/03/2012 08/22/2013 fenofibrate Take 1 Tab [...] 5 Oral tablet mouth daily at bedtime. 05/31/2012 08/30/2012 zolpidem (AMBIEN) 10 mg Take 1 Tab by 30 Tab 2 Oral tablet mouth nightly as needed for Insomnia. 05/30/2012 08/24/2012 metoclopramide HCl Take 1 Tab by 30 Tab 0 (REGLAN) 5 mg Oral tablet mouth 4 times daily before meals and at bedtime. 05/03/2012 05/09/2013 pioglitazone (ACTOS) 30 Take 1 Tab by 30 Tab 11 mg Oral tablet mouth daily. 05/03/2012 08/24/2012 metoprolol succinate ER Take 1 Tab by 30 Tab 11 24 hour (TOPROL XL) 25 mg mouth daily. Oral tablet 04/26/2012 05/01/2013 ramipril (ALTACE) 10 mg Take [...] 5 minutes as needed for Chest Pain. 06/30/2011 08/23/2012 FLUoxetine (PROZAC) 20 mg Take 2 Caps 60 Cap 11 Oral capsule by mouth daily. 09/10/2010 10/18/2012 LORazepam (ATIVAN) 1 mg Take 1 Tab by 60 Tab 2 Oral tablet mouth 2 times daily. 09/10/2010 04/26/2018 MULTIVITAMIN PO Take 1 Tab by 0 mouth daily with lunch. 02/14/2008 08/30/2012 ACCU-CHEK ACTIVE TEST by See Admin 0 Strp Instructions route 2 times daily. In the am & pm prn documented as of this encounter Plan of Treatment Not on filedocumented as of this encounter Procedures Comments Procedure Name Priority Date/Time Associated Diag nosis MICROALBUMIN/CREATININE Routine 08/15/2012 Type I (juvenile type) RATIO, RANDOM UR 8:43 AM CDT diabetes mellitus w ithout mention of complication, not stated as uncontrolled HEMOGLOBIN A1C Routine 08/15/2012 Type I (juvenil e type) 8:40 AM CDT diabetes mellitus without mention of complication, not stated as uncontrolled PHENYTOIN LEVEL, TOTAL Routine 08/15/2012 Other c onvulsions 8:40 AM CDT LIPID PANEL Routine 08/15/2012 Hyperlipidemia 8:40 AM CDT COMPREHENSIVE METABOLIC Routine 08/15/2012 Hyperl ipidemia PANEL 8:40 AM CDT documented in this encounter Results * MICROALBUMIN/CREATININE RATIO, RANDOM UR (08/15/2012 8:43 AM CDT) MICROALBUMIN, 32.2 mg/L [facility] URINE LABORATORY [facility] [place] Creatinine, 104 40 - 278 mg/dl [facility] Urine LABORATORY SERVICES - [place] MICROALBUMIN/CR 30.9 (H) <30 ug/mg [facility] RATIO, UR Comment: LABORATORY UNITS OF MEASURE: ug/mg [facility] [place] [employer] DEFINES ABNORMALITIES IN ALBUMIN EXCRETION FOLLOWS: CATEGORY RESULT (ug/mg Creatinine) NORMAL < 30 MICROALBUMINURIA 30 - 299 CLINICAL ALBUMINURIA > OR = 300 THE ADA RECOMMENDS THAT AT LEAST TWO OF THREE SPECIMENS COLLECTED WITHIN A 3-6 MONTH PERIOD BE ABNORMAL BEFORE CONSIDERING A PATIENT TO BE WITHIN A DIAGNOSTIC CATEGORY. [facility]AB [facility]AN ACCT#[id number], ,,,, Specimen Urine specimen (specimen) Performing Organization Address City/State/[facility] Ph one Number [facility] LABORATORY SERVICES CLIA# [id number] [place] [address] - [place] [address] [facility] LABORATORY SERVICES CLIA# [id number] [place] [address] - [address] * PHENYTOIN LEVEL, TOTAL (08/15/2012 8:40 AM CDT) Pathologist [facility] PHENYTOIN TOTAL 25.2 (H)Comment: 10 - 20 ug/ml [facility] ACCT#[id number], ,,,, SERVICES - [place] Specimen Blood specimen (specimen) Performing Organization Address City/State/Zipcode Ph one Number [facility] LABORATORY SERVICES CLIA# [id number] [place] [address] - [facility] [address] [place] [address] LABORATORY SERVICES CLIA# [id number] [place] [address] - [address] * LIPID PANEL (08/15/2012 8:40 AM CDT) Pathologist [facility] CHOLESTEROL 214 (H) 140 - 200 mg/dl [facility] [email or web address] [facility] TRIGLYCERIDE 345 (H) 0 - 199 mg/dl [facility] Comment: LABORATORY REFERENCE RANGE - [facility] [place] NORMAL LESS THAN 150 mg/dl BORDERLINE HIGH 150 - 199 mg/dl HIGH 200 - 499 mg/dl VERY HIGH GREATER THAN OR = 500 mg/dl HDL 42 27 - 67 mg/dl [facility] [email or web address] [facility] - [facility] LDL CALCULATED 103 <130 mg/dl [facility] Comment: LABORATORY SERVICES - [facility] RISK CATEGORY LDL GOAL High risk: <100 mg/dl CHD or CHD risk equivalents (optional goal: <70 mg/dl) (10-year risk > 20%) Moderately high risk <130 mg/dl 2+ risk factors (10-year risk 10% to 20%) Moderate risk: <130 mg/dl 2+ risk factors (10-year risk < 10%) Lower risk: <160 mg/dl 0-1 risk factor [facility] ACCT#[id number], ,,,, Specimen Blood specimen (specimen) Performing Organization Address [facility] LABORATORY SERVICES CLIA# [id number] [place] [address] - [address] LABORATORY SERVICES CLIA# [id number] [place] [address] * HEMOGLOBIN A1C (08/15/2012 8:40 AM CDT) [facility] HEMOGLOBIN A1C 6.8 (H) 0 - 6.0 % [facility] LABORATORY SERVICES - [place] GLUCOSE, MEAN 149Comment: [facility] mg/dl [facility] BLOOD ACCT#[id number], ,,,, LABORATORY SERVICES - [place] Specimen Blood specimen (specimen) Performing Organization Address [facility] one [facility]ly [facility] LABORATORY SERVICES CLIA# [id number] [place] [address] - [address] LABORATORY SERVICES CLIA# [id number] [place] [address] - [address] * COMPREHENSIVE METABOLIC PANEL (08/15/2012 8:40 AM CDT) [facility] Signature GLUCOSE 158 (H) 70 - 100 mg/dl [facility] LABORATORY SERVICES - [place] BUN 33.0 (H) 7 - 20 mg/dl [facility] LABORATORY SERVICES - [place] CREATININE 1.04 0.8 - 1.3 mg/dl [facility] LABORATORY SERVICES - [place] BUN/CREAT RATIO 31.7 (H) 10 - 20 [facility] LABORATORY SERVICES - [place] GFR 77 >60 ml/min [facility] LABORATORY SERVICES - [place] SODIUM 135 134 - 145 mmol/L [facility] LABORATORY SERVICES - [place] POTASSIUM 4.1 3.3 - 4.8 mmol/L [facility] - [place] CHLORIDE 103 98 - 107 mmol/L [facility] - [place] CO2 24.9 22 - 31 mmol/L [facility] LABORATORY SERVICES - [place] ANION GAP 11 4 - 20 [facility] LAB[facility]ATORY SERVICES - [place] CALCIUM 8.4 (L) 8.5 - 10.1 mg/dl [facility] LABORATORY SERVICES - [place] ALBUMIN 4.0 3.4 - 5.0 g/dl [facility] LABORATORY SERVICES - [place] TOTAL PROTEIN 7.1 6.4 - 8.2 g/dl [facility] LABORATORY SERVICES - [place] GLOBULIN (CALC) 3.1 [facility] LABORATORY SERVICES - [place] ALBUMIN/GLOBULI 1.3 [facility] LAB[facility] SERVICES - [place] BILIRUBIN TOTAL 0.2 <1.1 mg/dl [facility] LABORATORY SERVICES - [place] ALKALINE 70 50 - 136 IU/L [facility] PHOSPHATASE LABORATORY SERVICES - [place] AST 16 10 - 40 IU/L [facility] LABORATORY SERVICES - [place] ALT 34Comment: [facility]-SHANENH 25 - 70 IU/L M [facility] ACCT#[id number], ,,,, LABORATORY SERVICES - [place] Specimen Blood specimen (specimen) Performing Organization Address City/State/Zipcofl Ph one Number [facility] LABORATORY SERVICES CLIA# [id number] [place] [address] - [place] [address] [place] [address] LABORATORY SERVICES CLIA# [id number] [place] [address] - [address] documented in this encounter Visit Diagnoses Diagnosis Hyperlipidemia Other and unspecified hyperlipidemia Type I (juvenile type) diabetes mellitu s without mention of complication, not stated as uncontrolled Other convulsions documented in this encounter
--- OUTSIDE RECORDS SUMMARY | 2020-03-24 14:33 | XMS REPORT | Encounter Summary ---
Author Author [facility] Organization [facility] Address Unknown Phone Unavailable Care Team Providers Care Christmas Tree Farm Manager Name Role Phone Shahram Mccallum MD PCP Unavailable Encounter Details Care Team Description Date Type Department Claus Couch MD [address] [place] [address] 08/24/2012 [facility] Imaging Se rvices Encounter [address] [address] Social History Date Tobacco Use [...] Drop in both eyes 2 times daily. 08/24/2012 2012 metoclopramide HCl Take 1 Tab [...] tablet mouth nightly as needed for Insomnia. 05/03/2012 05/09/2013 pioglitazone (ACTOS) 30 Take 1 [...] nosis XR ABDOMEN ACUTE SERIES W Routine 08/24/2012 Abdo mary pain, CXR 10:10 AM CDT generalized documented in this encounter Results * XR [...] be of benefit. Performing Organization Address City/State/Zipcode Ph one Number INTERFACE SYSTEM INTERFACE SYSTEM Refer to clinic/hospital department documented in this encounter Visit Diagnoses Diagnosis Abdominal pain, generalized documented in this encounter
--- OUTSIDE RECORDS SUMMARY | 2020-03-24 14:33 | XMS REPORT | Encounter Summary ---
Author [facility] Organization [facility] Address Unknown Phone Unavailable Care Team Providers Care Betting Agency Manager Name Role Phone Shahram Mccallum MD PCP Unavailable Reason for Visit * Auth/Cert Referred By Contact Referred To Contact Status Reason Specialty Diagnoses / Procedures [facility] [address] [place] [address] Closed Home Health Encounter Details Care Team Description Date Type Department Bree Reed RN SN - HOME VISIT 08/16/2012 Home Care Visit [facility] [address] [place] [address] Social History Date Tobacco Use [...] Signs Reading Time Taken Comments Vital Sign 136/54 08/16/2012 12:00 AM CDT Blood Pressure - - Pulse - - Temperature 18 08/16/2012 12:00 AM CDT Respiratory Rate - - [...] Continuum of Care Monitor/ed 08/03/2012 Disciplines: ucate/[facility] force medical appointmen t compliance [...] box Problem: Scheduled Description: Medication Fill Medication cyber policy and strategy planner s weekly. Skilled assessment Problem: Scheduled [...] Home Health Visit - Actions and Narratives Progress toward goals. Pt. did have re curring chest pain yesterday which pt. treated with NTG in home. Pt. was re-evaluated by Dr. Donovan king late last week. Pt.'s Lantus Insulin dosing changed to 30 units. Pt. denies any problems toda y. documented in this encounter
--- OUTSIDE RECORDS SUMMARY | 2020-03-24 14:33 | XMS REPORT | Encounter Summary ---
Author Author [facility] Organization [facility] Address Unknown Phone Unavailable Care Team Providers Care Machine Feeder Name Role Phone Shahram Mccallum MD PCP Unavailable Reason for Visit * Reason Comments Diabetes Cholesterol Problem lab results Encounter Details Care Team Description Date Type Department Shahram Mccallum MD NO ADDRESS ON FILE Bradycardia; DM w/o complication type I; Hyperlipidemia; Unspecified essential hypertension 08/15/2012 Office Visit [facility] [address] [place] [address] Social History Date Tobacco Use [...] Reading Time Taken Comments Vital Sign 118/60 08/15/2012 10:41 AM CDT Blood Pressure 64 08/15/2012 10:41 AM CDT Pulse - - Temperature - - Respiratory Rate - - Oxygen Saturation - - Inhaled Oxygen Concentration 101.2 kg (223 lb) 08/15/2012 10:41 AM CDT Weight 167.6 cm (5' 6") 08/15/2012 10:41 AM CDT Height 35.99 08/15/2012 10:41 AM CDT Body Mass Index documented in this encounter Progress Notes * Shahram Mccallum MD - 08/15/2012 11:13 AM CDT Subjective: Oliverio Dalton is a 61 y.o. male. Patient Active Problem List Diagnoses Code DM w/o complication type I 250.01 Cor athrscl-uns vessel 414.00 Unspecified essential hypertension 401.9 Other Convulsions 780.39 Chronic airway obstruction, not elsewhere classified 496 BPH w/o Urinary Obs/LUTS 600.00 Neurogenic Bladder, NOS 596.54 Unspecified Glaucoma 365.9 Bipolar Disorder, Unspecified 296.80 Hyperlipidemia 272.4 Anemia 285.9 Tubular Adenoma 229.9 Personal History of Colonic Polyps V12.72 Cellulitis 682.9 MRSA (methicillin resistant staph aureus) culture positive V02.54 Acute appendicitis 540.9 Status post laparoscopic appendectomy V45.89 Umbilical hernia without mention of obstruction or gangrene 553.1 Tendonitis of foot 727.06 Current Outpatient Prescriptions on File Prior to Visit Medication Sig Dispense Refill fenofibrate nanocrystallized (TRICOR) 145 mg Oral tablet [...] daily at bedtime. 3 0 Tab 5 zolpidem (AMBIEN) 10 mg Oral tablet Take 1 Tab by mouth nightly as needed fo r Insomnia. 30 Tab 2 metoclopramide HCl (REGLAN) 5 mg Oral tablet Take 1 Tab by mouth 4 times conor ly before meals and at bedtime. 30 Tab 0 pioglitazone (ACTOS) 30 mg Oral tablet Take 1 Tab by mouth daily. 30 Tab 1 1 metoprolol succinate ER 24 hour (TOPROL XL) 25 mg Oral tablet Take 1 Tab by mouth daily. 30 Tab 11 ramipril (ALTACE) 10 mg Oral capsule Take [...] daily before break fast. 30 Cap 11 insulin glargine (LANTUS) 100 unit/mL subCUT Soln 20 units at hs 10 mL 11 isosorbide mononitrate SR 24 hour (IMDUR) 60 mg Oral tablet Take 1 Tab by mo uth 2 times daily. 60 Tab 11 nitroglycerin (NITROSTAT) 0.[address] 1 Tab under tongue ev len 5 minutes as needed for Chest Pain. 25 Tab prn FLUoxetine (PROZAC) 20 mg Oral capsule Take 2 Caps by mouth daily. 60 Cap 11 LORazepam (ATIVAN) 1 mg Oral tablet Take 1 Tab by mouth 2 times daily. 60 T ab 2 magnesium oxide 250 mg Oral Tab Take 1 Tab by mouth 3 times daily. ASPIRIN EC 81 mg Oral TbEC Take 81 mg by mouth daily. flaxseed Oil 1,000 mg Oral Cap Take 1000 mg by mouth 3 times daily. MULTIVITAMIN PO Take 1 Tab by mouth daily with lunch. AEROBID IN Take 2 Puffs by inhalation 3 times daily. ALBUTEROL IN Take 2 Puffs by inhalation every 6 hours as needed BETIMOL 0.5 % OP Drop Administer 1 Drop in both eyes 2 times daily. ACCU-CHEK ACTIVE TEST Strp by See Admin Instructions route 2 times daily. In the am & pm prn TYLENOL 325 mg Oral Tab Take 1-2 Tabs by mouth every 4 hours as needed for P ain. Lab Results Component Value Date HEMOGLOBIN A1C 6.8* 08/15/2012 HEMOGLOBIN A1C 6.9* 04/13/2012 HEMOGLOBIN A1C 6.4* 12/10/2011 MICROALBUMIN, URINE 32.2 08/15/2012 LDL CALCULATED 103 08/15/2012 LDL CHOLESTEROL, DIRECT 125 12/10/2011 CREATININE 1.04 08/15/2012 Lab Results Component Value Date CHOLESTEROL 214* 08/15/2012 CHOLESTEROL 210* 04/13/2012 CHOLESTEROL 217* 12/10/2011 HDL 42 08/15/2012 HDL 43 04/13/2012 HDL 51 12/10/2011 LDL CALCULATED 103 08/15/2012 LDL CALCULATED 102 04/13/2012 LDL CALCULATED 0 06/29/2008 LDL CHOLESTEROL, DIRECT 125 12/10/2011 LDL CHOLESTEROL, DIRECT 123 08/04/2011 LDL CHOLESTEROL, DIRECT 125 04/02/2011 TRIGLYCERIDE 345* 08/15/2012 TRIGLYCERIDE 323* 04/13/2012 TRIGLYCERIDE 348* 12/10/2011 ALT 34 08/15/2012 AST 16 08/15/2012 Lab Results Component Value Date CREATININE 1.04 08/15/2012 BUN 33.0* 08/15/2012 SODIUM 135 08/15/2012 POTASSIUM 4.1 08/15/2012 CHLORIDE 103 08/15/2012 CO2 24.9 08/15/2012 GFR 77 08/15/2012 Lab Results Component Value Date ALT 34 08/15/2012 AST 16 08/15/2012 ALKALINE PHOSPHATASE 70 08/15/2012 BILIRUBIN TOTAL 0.2 08/15/2012 HPI: Mr. Dalton complains of the following (by systems): Chest Pain symptoms: hospitalized last week with bradycardia and chest pain. no recurrance and neg w/u. Diabetes Type II complaints: patient is asymptomatic, is compliant with meds a nd diet; glucose monitoring is usually in normal ranges Hypertension related symtoms/issues: taking medications as instructed, no side effects of medications, no chest pain on exertion, no dyspnea on exertion, no ed lian Review of Systems: ROS Denies all of the following: Headache Dizziness Chest pain Shortness of breath Bowel changes Bladder changes Pain in muscle or joints Exam/Objective: Normal Exam for Routine Visits: \\Blood pressure 118/60, pulse 64, height 5' 6" ( 1.676 m), weight 223 lb (101.152 kg). General appearance: active, alert, cooperative, social, normally nourished, and [...] and Plan: ASSESSMENT: Encounter Diagnoses Name Primary? Bradycardia DM w/o complication type I Hyperlipidemia Unspecified essential hypertension PLAN: Orders Placed This Encounter CMP (4 MONTHS X 1) LIPID PANEL (4 MONTHS X 1) HEMOGLOBIN A1C (4 MONTHS X 1) Increase lantus to 30units HS May need event monitor if cont with low pulse sxs like last week May need metoprolol reduced but episodes are unpredictable Appropriate medications prescribed (see detailed AVS). Appropriate patient instructions provided (see detailed AVS). Follow-up as I have indicated. Medications and options explained to include common side effects. Understanding of medications, course, diagnosis, and expectations were expressed by patient/g uardian. documented in this encounter Plan of Treatment Not on filedocumented as of this encounter Results * HEMOGLOBIN A1C (01/02/2013 9:50 AM WIRE STRAIGHTENER) HEMOGLOBIN A1C 7.1 (H) 0 - 6.0 % [facility] [place] GLUCOSE, MEAN 157Comment: [facility] mg/dl [facility] BLOOD ACCT#[id number], ,,,, LABORATORY SERVICES - [place] Specimen Blood specimen (specimen) Performing Organization Address City/State/Zipcowv Ph one Number [facility] CLIA# [id number] [place], [place] [address] [address] LABORATORY SERVICES CLIA# [id number] [place] [address] [address] * LIPID PANEL (01/02/2013 9:50 AM WIRE STRAIGHTENER) CHOLESTEROL 137 (L) 140 - 200 mg/dl [facility] - [place] TRIGLYCERIDE 95 0 - 199 mg/dl [facility] Comment: LABORATORY REFERENCE RANGE - SERVICES - [place] NORMAL LESS THAN 150 mg/dl BORDERLINE HIGH 150 - 199 mg/dl HIGH 200 - 499 mg/dl VERY HIGH GREATER THAN OR = 500 mg/dl HDL 48 27 - 67 mg/dl [facility] [place] LDL CALCULATED 70 <130 [...] Lower risk: <160 mg/dl 0-1 risk factor [facility] ACCT#[id number], ,,,, Specimen Blood specimen (specimen) Performing Organization Address City/[facility] Ph one Number [facility] CLIA# [id number] [place] [address] [place] [address] [place] [address] LABORATORY SERVICES CLIA# [id number] [place] [address] [place] [address] [place] [address] * COMPREHENSIVE METABOLIC PANEL (01/02/2013 9:50 AM WIRE STRAIGHTENER) [facility] GLUCOSE 133 (H) 70 - 100 mg/dl [facility] [place] BUN 12.0 7 - 20 mg/dl [facility] - [facility] CREATININE 0.61 (L) 0.67 - 1.17 mg/dl [facility] - [place] GFR 142 >60 ml/min [facility] [place] SODIUM 135 134 - 145 mmol/L [facility] [place] POTASSIUM 3.8 3.3 - 4.8 mmol/L [facility] [place] CHLORIDE 99 98 - 107 mmol/L [facility] [place] CO2 25.9 22 - 31 mmol/L [facility] [place] ANION GAP 10 7 - 16 [facility] - [place] CALCIUM 9.3 8.5 - 10.1 mg/dl [facility] [place] ALBUMIN 3.4 3.4 - 5.0 g/dl [facility] [place] TOTAL PROTEIN 7.7 6.4 - 8.2 g/dl [facility] [place] BILIRUBIN TOTAL 0.3 <1.1 mg/dl [facility] [place] ALKALINE 184 (H) 50 - 136 IU/L [facility] PHOSPHATASE LABORATORY SERVICES - [place] AST 13 10 - 40 IU/L [facility] [place] ALT 28Comment: [facility] 25 - 70 IU/L [facility] ACCT#[id number], ,,,, LAB[facility]ATORY [facility] - [place] Specimen Blood specimen (specimen) Performing Organization Address City/[facility] Ph one Number [facility] CLIA# [id number] [place] [address] - [place] [address] [place] [address] LABORATORY SERVICES CLIA# [id number] [place] [address] documented in this encounter Visit Diagnoses Diagnosis Bradycardia Other specified cardiac dysrhythmias DM w/o complication type I Type I (juvenile type) diabetes mellitu s without mention of complication, not stated as uncontrolled Hyperlipidemia Other and unspecified hyperlipidemia Unspecified essential hypertension documented in this encounter
--- OUTSIDE RECORDS SUMMARY | 2020-03-24 14:33 | XMS REPORT | Encounter Summary ---
Author Author [facility] Organization [facility] Address Unknown Phone Unavailable Care Team Providers Care Circuit Court Magistrate Name Role Phone Shahram Mccallum MD PCP Unavailable Reason for Visit * Auth/Cert Referred By Contact Referred To Contact Status Reason Specialty Diagnoses / Procedures [facility] [address] [place] [address] Closed Home Health Encounter Details Care Team Description Date Type Department Bree Reed RN SN - HOME VISIT 08/30/[address] [facility] [address] [place] [address] Social History Date Tobacco Use [...] Signs Reading Time Taken Comments Vital Sign 122/56 08/30/2012 12:00 PM CDT Blood Pressure - - Pulse 36.4 C (97.5 F) 08/30/2012 12:00 PM CDT Temperature 22 08/30/2012 12:00 PM CDT Respiratory Rate - - Oxygen Saturation - - Inhaled Oxygen Concentration - - Weight - - Height - - Body Mass Index documented in this encounter Plan of Treatment Not on filedocumented as of this encounter Visit Diagnoses Not on filedocumented in this encounter Home Health Visit - Care Plan Visit Type - SN - HOME VISIT Discipline - Fci Status Goals Interventions Problem Descriptio Start Date n Active - 3 problem interventions scheduled/documented in this visit Apprehension/Nervousness Feelings 12/05/2012 - COPD of dread Disciplines: and Fci apprehensi on Active - 3 problem interventions scheduled/documented in this visit Breathing Problems - COPD Inadequate 08/03/2012 Disciplines: breathing Fci pattern Active - 3 problem interventions scheduled/documented in this visit Failure to Comply With Behaviors 08/03/2012 Plan of Care of Disciplines: patient/ca Fci regiver that do not follow the plan of care. Active - 1 problem intervention scheduled/documented in this visit Continuum of Care Monitor/ed 08/03/2012 Disciplines: michelleate/rein Fci force medical appointmen t compliance . Identify and facilitate appropriat e discipline referrals. Active - 2 problem interventions scheduled/documented in this visit Injury Prevention - At risk 08/03/2012 Hypertension for Disciplines: injury: Fci related to internal factors resulting from complicati ons of hypertensi on Active - 4 problem interventions scheduled/documented in this visit Learning/Teaching Needs - Learning 08/03/2012 Diabetes and Disciplines: teaching Fci needs associated with diagnosis Active - 3 problem interventions scheduled/documented in this visit Learning/Teaching Needs - Lack of 08/03/2012 Hypertension knowledge Disciplines: re: Fci medical regimen related to controllin g/managing hypertensi on Active - 4 problem interventions scheduled/documented in this visit Medications Management 08/03/2012 Disciplines: of home Fci medication s Active - 2 problem interventions scheduled/documented in this visit Problems with Activity - Decreased 08/03/2012 COPD tolerance Disciplines: to normal Fci activities related to dyspnea and fatigue. Variance [...] box set up by SN. Visit on 08/30/2012 by Bree Reed RN [[id number]] at 08/31/2012 10:00:08 AM Weekly medication raw material planner filled with scheduled medications. Medication box Problem: Completed Description: Medication Fill Medication raw material planner s weekly. Skilled assessment Problem: Completed [...] Health Visit - Actions and Narratives Pt. was very anxious when this nurse ar rived. Pt. having pressure in chest. Nurse notes pt. SOB. History by pt. as follows: Had not fel t well for 2 days. This AM approx. 1000 increase in chest pressure. Pt. contacted [facility] jennifer vick that the nurse was scheduled to visit today. Instructed to NTG., Metoclopramide, and 1/2 tab of Phernergan 25mg. Pt. completed task. Min. relief. Pt.'s paid caregiver took pt.'s pulse--48. P t. got very anxious. When nurse arrived--evaluation completed. Pt. describes to nurse pres sure began in mid abd radiating to chest causing SOB. Sometimes pressure goes from rt. to lt. lower chest. Pt.'s skin is cool and clammy. This nurse did contact Dr. Mccallum' office. Miss Angelina pierre directed pt. to ER. Pt. was going to drive self. Nurse stated absolutely not. Pt. contacted p aid caregiver for transportation. Nurse contacted ER. Report given to Shahram in ER with above history. Nurse waited on paid caregiver to arrive to transport pt. Pt. declined EMS. documented in this encounter
--- OUTSIDE RECORDS SUMMARY | 2020-03-24 14:33 | XMS REPORT | Encounter Summary ---
Author Author [facility] Organization [facility] Address Unknown Phone Unavailable Care Team Providers Care Fur Nailer Name Role Phone Shahram Mccallum MD PCP Unavailable Reason for Visit * Reason Comments Foot Pain right, follow up Encounter Details Care Team Description Date Type Department Jona Doran, COPYING MACHINE REPAIRER [address] [place] [phone] Tendonitis of foot (Primary Dx) 08/16/2012 Office Visit [facility] [address] [address] Social History Date Tobacco Use [...] Reading Time Taken Comments Vital Sign 122/70 08/16/2012 1:35 PM CDT Blood Pressure - - Pulse - - Temperature - - Respiratory Rate - - Oxygen Saturation - - Inhaled Oxygen Concentration 101.2 kg (223 lb) 08/16/2012 1:35 PM CDT Weight 167.6 cm (5' 6") 08/16/2012 1:35 PM CDT Height 35.99 08/16/2012 1:35 PM CDT Body Mass Index documented in this encounter Progress Notes * Jona Doran, JONNATHAN - 08/16/2012 2:12 PM CDT This patient is seen for followup evaluation foot pain in his forefeet, dorsum. He states he has been stretching. He has a lady that comes in at his house has been helping him with this. He states that this is helped a great deal is very pleased. He is stop the NSAID. He states that he has no pain in his feet or legs. He does state that he said a little swelling in his right ankle and foot, which is his only complaint, today. He's had this he states since about early June. It began just after "his b linda surgery." The swelling goes down when he wakes up in the morning after having his foot and ankle up all night long. He doesn't get any swelling in the left foot and ankl e. Again he has no pain. No erythema. On examination, he has no right foot pain today. Mild swelling, right foot and ankle supple calf. Negative Homans sign. No instability. His integument. Madgalena rovascular status is intact. 4 foot pain, tendinitis, hammertoes, early neurogenic foot, improved. Plan activity as tolerated continue stretching mentioned, the swelling when he s ees his medical doctor and followup. I see no evidence of DVT today, and we'll plan to recheck him, when necessary he'll call if he has problems documented in this encounter Plan of Treatment Not on filedocumented as of this encounter Visit Diagnoses Diagnosis Tendonitis of foot - Primary Tenosynovitis of foot and ankle documented in this encounter
--- OUTSIDE RECORDS SUMMARY | 2020-03-24 14:33 | XMS REPORT | Encounter Summary ---
Author Author [facility] Address Unknown Phone Unavailable Care Team Providers Care Scrap Hooker Name Role Phone Shahram Mccallum MD PCP Unavailable Reason for Visit * Reason Comments Medication Refill Encounter Details Care Team Description Date Type Department Shahram Mccallum MD NO ADDRESS ON FILE 08/23/2012 Refill [facility] [address] [phone] Social History Date Tobacco Use Types Packs/Day [...]
--- OUTSIDE RECORDS SUMMARY | 2020-03-24 14:34 | XMS REPORT | Encounter Summary ---
Author [facility] Organization [facility] Address Unknown Phone Unavailable Care Team Providers Care Yacht Master Name Role Phone Shahram Mccallum MD PCP Unavailable Reason for Visit * Auth/Cert Referred By Contact Referred To Contact Status Reason Specialty Diagnoses / Procedures [facility] [address] [place] [address] Closed Home Health Encounter Details Care Team Description Date Type Department Bree Reed RN SN - HOME VISIT 08/09/2012 Home Care Visit [facility] [address] [place] [address] Social History Date Tobacco [...] Signs Reading Time Taken Comments Vital Sign 156/66 08/09/2012 12:00 AM CDT Blood Pressure - - Pulse - - Temperature 20 08/09/2012 12:00 AM CDT Respiratory Rate - - [...] 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 Active - 1 problem intervention scheduled/documented in this visit Continuum of Care Monitor/ed 08/03/2012 Disciplines: ucate/rein Fpc force medical appointmen t compliance . Identify and facilitate appropriat e discipline referrals. Active - 2 problem interventions scheduled/documented in this visit Injury Prevention - At risk 08/03/2012 Hypertension for Disciplines: injury: Fpc related to internal factors resulting from complicati ons of hypertensi on Active - 4 problem interventions scheduled/documented in this visit Learning/Teaching Needs - Learning 08/03/2012 Diabetes and Disciplines: teaching Fpc needs associated with diagnosis Active - 3 problem interventions scheduled/documented in this visit Learning/Teaching Needs - Lack of 08/03/2012 Hypertension knowledge Disciplines: re: Fpc medical regimen related to controllin g/managing hypertensi on Active - 4 problem interventions scheduled/documented in this visit Medications Management 08/03/2012 Disciplines: of home Fpc medication s Active - 2 problem interventions scheduled/documented in this visit Problems with Activity - Decreased 08/03/2012 COPD tolerance Disciplines: to normal Fpc activities related to dyspnea and fatigue. Variance [...] box Problem: Scheduled Description: Medication Fill Medication land planner s weekly. Skilled assessment Problem: Scheduled [...] Health Visit - Actions and Narratives Pt. expresses that he has not felt good all day. Aching -intense pain throughout chest penetrating to thoracic back. Skin is cool and cla mmy. Apical Pulse rate is 44 and regular when checking x4. Pt. expresses that he does have increas ed SOB. Nurse ismael notify Dr. Fernandez' office commercial parts professional for Dr. Mccallum--spoke with Nikky. Instructed to go to ER. Nurse did phon e ER nurse, Miss Valdez with report. Paid Caregiver will transport pt. at pt.'s request. documented in this encounter
--- OUTSIDE RECORDS SUMMARY | 2020-03-24 14:34 | XMS REPORT | Encounter Summary ---
Author Author [facility] Organization [facility] Address Unknown Phone Unavailable Care Team Providers Care Set Staff Fitter Name Role Phone Shahram Mccallum MD PCP Unavailable Encounter Details Care Team Description Date Type Department Karen Booker RN 60 DAY SUMMARY 08/04/2012 Home Care Visit [facility] [address] [place] [address] Social History Date Tobacco Use [...] Type - 60 DAY SUMMARY Discipline - Penitentiary Status Goals Interventions Problem Descriptio Start Date n Active - 3 problem interventions scheduled/documented in this visit Apprehension/Nervousness Feelings 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 Active - 1 problem intervention scheduled/documented in this visit Continuum of Care Monitor/ed 08/03/2012 Disciplines: ucate/rein Penitentiary force medical appointmen t compliance . Identify and facilitate appropriat e discipline referrals. Active - 2 problem interventions scheduled/documented in this visit Injury Prevention - At risk 08/03/2012 Hypertension for Disciplines: injury: Penitentiary related to internal factors resulting from complicati ons of hypertensi on Active - 4 problem interventions scheduled/documented in this visit Learning/Teaching Needs - Learning 08/03/2012 Diabetes and Disciplines: teaching Penitentiary needs associated with diagnosis Active - 3 problem interventions scheduled/documented in this visit Learning/Teaching Needs - Lack of 08/03/2012 Hypertension knowledge Disciplines: re: Penitentiary medical regimen related to controllin g/managing hypertensi on Active - 4 problem interventions scheduled/documented in this visit Medications Management 08/03/2012 Disciplines: of home Penitentiary medication s Active - 2 problem interventions scheduled/documented in this visit Problems with Activity - Decreased 08/03/2012 COPD tolerance Disciplines: to normal Penitentiary activities related to dyspnea and fatigue. Variance [...] box Problem: Scheduled Description: Medication Fill Medication hydrographer s weekly. Skilled assessment Problem: Scheduled medications [...]
--- OUTSIDE RECORDS SUMMARY | 2020-03-24 14:34 | XMS REPORT | Encounter Summary ---
Author Author [facility] Organization [facility] Address Unknown Phone Unavailable Care Team Providers Care Sales Department Supervisor Name Role Phone Shahram Mccallum MD PCP Unavailable Reason for Visit * Reason Comments Results Encounter Details Care Team Description Date Type Department Shahram Mccallum MD NO ADDRESS ON FILE Results 07/08/2012 Telephone [facility] Primar y [facility] [address] [place] [address] Social History Date Tobacco Use [...] * Telephone Encounter - Nuris Miramontes - 07/08/2012 12:54 PM CDT Arterial doppler reported to patient. documented in this encounter Plan of Treatment Not on filedocumented as of this encounter Visit Diagnoses Not on filedocumented in this encounter
--- OUTSIDE RECORDS SUMMARY | 2020-03-24 14:34 | XMS REPORT | Encounter Summary ---
Author Author [facility] Organization [facility] Address Unknown Phone Unavailable Care Team Providers Care Production Control Analyst Name Role Phone Shahram Mccallum MD PCP Unavailable Reason for Visit * Reason Comments Medication Refill Encounter Details Care Team Description Date Type Department Shahram Mccallum MD NO ADDRESS ON FILE 07/12/2012 Refill [facility] Primar y Care [address] [phone] Social History Date Tobacco Use Types Packs/Day [...]
--- OUTSIDE RECORDS SUMMARY | 2020-03-24 14:34 | XMS REPORT | Encounter Summary ---
Author Author [facility] Organization [facility] Address Unknown Phone Unavailable Care Team Providers Care Summer Nanny Name Role Phone Shahram Mccallum MD PCP Unavailable Reason for Visit * Reason Comments Follow Up Encounter Details Care Team Description Date Type Department Jose Bailey MD [address] [place] [phone] Tendonitis of foot; Neurogenic pain of foot 07/28/2012 Office Visit [facility] [address] [phone] Social History Date Tobacco Use [...] Inhaled Oxygen Concentration 99.8 kg (220 lb) 07/28/2012 9:52 AM CDT Weight 167.6 cm (5' 6") 07/28/2012 9:52 AM CDT Height 35.51 07/28/2012 9:52 AM CDT Body Mass Index documented in this encounter Progress Notes * Jose Bailey MD - 07/28/2012 9:58 AM CDT S: the right foot pain is better. he has been wearing the boot most of the donis e. he takes it off around the house. he stopped the indocin. he has been taking diclofenac 50 mg one po bid. On exam, he has pain primarily the second through fourth fifth, to a lesser degr ee extensor tendon distal metatarsal pain. He also has pain in same area throug h the metatarsal head, neck region, plantar aspect to a lesser degree the pain i s primarily remains in the extensor tendon area. He has pes cavus noted early h ammertoe formation. It appears to be has some degree of early neurogenic foot p roblems. There is no swelling, warmth, or erythema. Assessment right forefoot pain, tendinitis, neurogenic foot. Plan of gone over the problem with him. I recommended continuing the medication continuing the boot at this time. Will add stretching exercises, particularly in plantar flexion of his toes have gone over the these with him. He has ladies at come in and help him that can do this for him to work on some extension of t he toes as well. I think this will help due to his apparent neurogenic foot in early hammertoe problem. We'll plan to recheck in 3 weeks, sooner when necessar y I have reviewed the above and examined the patient with Solomon and agree documented in this encounter Plan of Treatment Not on filedocumented as of this encounter Visit Diagnoses Diagnosis Tendonitis of foot Tenosynovitis of foot and ankle Neurogenic pain of foot Mononeuritis of lower limb, unspecified documented in this encounter
--- OUTSIDE RECORDS SUMMARY | 2020-03-24 14:34 | XMS REPORT | Encounter Summary ---
Author Author [facility] Organization [facility] Address Unknown Phone Unavailable Care Team Providers Care Cyber Systems Administrator Name Role Phone Shahram Mccallum MD PCP Unavailable Reason for Visit * Reason Comments Medication Refill Encounter Details Care Team Description Date Type Department Shahram Mccallum MD NO ADDRESS ON FILE 08/03/2012 Refill [facility] Primar y Care [address] [phone] Social History Date Tobacco Use Types Packs/Day [...]
--- OUTSIDE RECORDS SUMMARY | 2020-03-24 14:34 | XMS REPORT | Encounter Summary ---
Author Author [facility] Organization [facility] Address Unknown Phone Unavailable Care Team Providers Care Supervisor Stitching Department Name Role Phone Shahram Mccallum MD PCP Unavailable Reason for Referral * Eval and Treat (Routine) Referred By Contact Referred To Contact Status Reason Specialty Diagnoses / Procedures Shahram Mccallum MD NO ADDRESS ON FILE Jose Bailey MD [address] [place] [address] Closed Orthopedic Diagnoses Surgery Foot pain, right Encounter Details Care Team Description Date Type Department Shahram Mccallum MD NO ADDRESS ON FILE Foot pain, right (Primary Dx) 07/08/2012 Orders Only [facility] [address] [place] [address] Social History Date [...] Name Type Priority Associated Diag noses Ordered: 07/08/2012 AMB REFERRAL TO Outpatient Routine Foot pain, rig ht ORTHOPEDIC SURGERY Referral documented as of this encounter Visit Diagnoses Diagnosis Foot pain, right - Primary Pain in limb documented in this encounter
--- OUTSIDE RECORDS SUMMARY | 2020-03-24 14:34 | XMS REPORT | Encounter Summary ---
Author Author [facility] Organization [facility] Address Unknown Phone Unavailable Care Team Providers Care Aquatic Life Laborer Name Role Phone Shahram Mccallum MD PCP Unavailable Reason for Referral * Outpatient Services (Routine) Referred By Contact Referred To Contact Status Reason Specialty Diagnoses / Procedures Shahram Mccallum MD NO ADDRESS ON FILE [facility] [address] [place] [address] Closed Radiology Diagnoses Peripheral vascular disease, unspecified P rocedures US DUPLEX ARTERIAL LEG RIGHT Reason for Visit * Outpatient Services (Routine) Referred By Contact Referred To Contact Status Reason Specialty Diagnoses / Procedures Shahram Mccallum MD NO ADDRESS ON FILE [facility] [address] [place] [address] Closed Radiology Diagnoses Peripheral vascular disease, unspecified P rocedures US DUPLEX ARTERIAL LEG RIGHT Encounter Details Care Team Description Date Type Department Shahram Mccallum MD NO ADDRESS ON FILE 07/06/2012 [facility] F ort Encounter [facility] [address] [place] [address] Social History Date Tobacco Use [...] Drop in both eyes 2 times daily. 06/30/2011 08/10/2012 FLUoxetine (PROZAC) 20 mg Take 20 mg by 0 Oral capsule mouth daily. 05/31/2012 08/30/2012 zolpidem (AMBIEN) 10 mg Take [...] 5 minutes as needed for Chest Pain. 08/04/2011 08/03/2012 fenofibrate Take 1 Tab by 30 Tab 11 nanocrystallized (TRICOR) mouth daily 145 mg Oral tablet with supper. 07/28/2011 07/19/2012 bethanechol (URECHOLINE) Take 1 Tab by 120 Tab 11 25 mg Oral tablet mouth 4 times daily. 07/21/2011 07/12/2012 tamsulosin (FLOMAX) 0.4 Take 1 Cap by 30 Cap 11 mg Oral capsule mouth daily. 30 min. After supper 06/30/2011 08/23/2012 FLUoxetine (PROZAC) 20 mg Take 2 Caps 60 Cap 11 Oral capsule by mouth daily. 09/10/2010 10/18/2012 LORazepam (ATIVAN) 1 mg Take 1 Tab by 60 Tab 2 Oral tablet mouth 2 times daily. 12/29/2007 07/12/2012 ZETIA 10 mg Oral Tab Take 10 mg by 0 mouth daily at bedtime. 09/10/2010 04/26/2018 MULTIVITAMIN PO Take 1 Tab by 0 mouth daily with lunch. 02/14/2008 08/30/2012 ACCU-CHEK ACTIVE TEST by See Admin 0 Strp Instructions route 2 times daily. In the am & pm prn documented as of this encounter Plan of Treatment Not on filedocumented as of this encounter Procedures Comments Procedure Name Priority Date/Time Associated Diag nosis US DUPLEX ARTERIAL LEG Routine 07/06/2012 Periphe ral vascular RIGHT 10:34 AM CDT disease, unspecifie d documented in this encounter Results * US DUPLEX ARTERIAL LEG RIGHT (07/06/2012 10:34 AM CDT) Specimen Impressions Performed At IMPRESSION: No evidence of significant peripheral vas cular change in INTERFACE SYSTEM the right lower extremity on screening right lower extremity arterial ultrasound. Narrative Performed At Right lower extremity arterial ultrasound: INTERFACE SYSTEM Color and grayscale and duplex Doppler ultrasound was used to evaluate the right leg arterial supply. There is triphasic flow throughout the right common femoral, superficial femoral and popliteal arter ies. Triphasic flow also present within the posterior tibial and dorsalis pedis arteries. No significant stenosis identified. Procedure Note Wally Sharpe MD - 07/06/2012 12:57 PM CDT Right lower extremity arterial ultrasound: Color and grayscale and duplex Doppler ultrasound was used to evaluate the right leg arterial supply. There is triphasic flow throughout the right common femoral, superficial femoral and popliteal arteries. Triphasic flow also present within the posterior tibial and dorsalis pedis arteries. No significant stenosis identified. IMPRESSION IMPRESSION: No evidence of significant peripheral vascular change in the right lower extremity on screening right lower extremity arterial ultrasound. Performing Organization Address City/State/Zipcode Ph one Number INTERFACE SYSTEM INTERFACE SYSTEM Refer to clinic/hospital department documented in this encounter Visit Diagnoses Diagnosis Peripheral vascular disease, unspecifie d documented in this encounter
--- OUTSIDE RECORDS SUMMARY | 2020-03-24 14:34 | XMS REPORT | Encounter Summary ---
Author Author [facility] Organization [facility] Address Unknown Phone Unavailable Care Team Providers Care Lamp Replacer Name Role Phone Shahram Mccallum MD PCP Unavailable Reason for Visit * Reason Comments Chest Pain pt sent in by home care [facility] for c/o chest pain, shortness of breath and HR of 40-44 reported - pt c/o slight ch est pain since yesterday, slight SOB and pain to upper chest and left should er that is worse w/ palpation * Auth/Cert Referred By Contact Referred To Contact Status Reason Specialty Diagnoses / Procedures [facility] Med Surg [address] [place] [address] Closed Inpatient Encounter Details Care Team Description Date Type Department Jada Fernandez MD NO ADDRESS ON FILE 08/09/2012 Emergency [facility] Medical Surgical 08/10/2012 [address] [place] [address] Social History Date Tobacco Use [...] Reading Time Taken Comments Vital Sign 124/62 08/10/2012 7:28 AM CDT Blood Pressure 50 08/10/2012 7:28 AM CDT Pulse 36.3 C (97.3 F) 08/10/2012 7:28 AM CDT Temperature 16 08/10/2012 7:28 AM CDT Respiratory Rate 95% 08/10/2012 7:28 AM CDT Oxygen Saturation - - Inhaled Oxygen Concentration 102.3 kg (225 lb 8 oz) 08/09/2012 5:44 PM CDT Weight 167.6 cm (5' 6") 08/09/2012 5:44 PM CDT Height 36.4 08/09/2012 5:44 PM CDT Body Mass Index documented in this encounter Discharge Summaries * Kaye Fernandez MD - 08/10/2012 10:55 AM CDT [address] [place], [place] [address] Patient Name: OLIVERIO TINSLEY CSN: [id number] : 1950 Provider: Kaye Fernandez M.D. Admitted: 08/09/2012 Discharged: 08/10/2012 DISCHARGE SUMMARY ADMITTING DIAGNOSIS: Chest pain with history of coronary artery disease. DISCHARGE DIAGNOSIS: Chest pain with history of coronary artery disease. HISTORY AND PHYSICAL: Please see acute care H and P. HOSPITAL COURSE: The patient came in the emergency room with some increased malinda rtness of breath and chest pain radiating through to his back and subsequently h ad negative cardiac markers drawn. EKG was stable without evidence for acute ch anges. Not exertion related. His shortness of breath abated. Pain was able to be controlled with oral hydrocodone-type medication. He had some tenderness to palpation of his back, and it was believed it was muscular in etiology. The pa tient was reassured, dismissed in improved condition, this morning up and about without difficulty. Dictated by: Kaye Fernandez M.D./MEDQ D: [id number] V: [id number] * Kaye Fernandez MD - 08/10/2012 9:55 AM CDT This has been dictated 08/10/12 documented in this encounter Discharge Instructions * Patient Instructions* Rajan Duque - 08/11/2012 1:51 PM CDT Electronically signed by Bong El Transcriptions Incoming at 2 1:51 PM CDT * Additional Instructions* Kentrell Bledsoe RN - 08/09/2012 DISCHARGE DESTINATION: Home. PRESCRIPTIONS: Prescriptions given? No SIGNS AND SYMPTOMS TO REPORT Contact your health care provider if you experience any of the following symptom s: increase in pain. ACTIVITY Your activity level is: increase activity as tolerated and no smoking. If you smoke you are advised to quit. Ask your health care provider for advice if you need assistance to stop smoking. Avoid second-hand smoke exposure and do not le t people smoke in your home. You may return to work/school call if not improving. DIET Your diet is: heart healthy MEDICATIONS Reminders: Please discard any old medication [...] the event of emergency situations ................................................................................ ...................................................... If you have a history of CHF (Congestive Heart Failure) or (Heart Failure): *Make a follow-up appointment with your doctor within 1 month of discharge. *Weigh yourself on your scales as soon as you get home-this will be your Target Weight *It is important to weigh yourself daily. Report weight gain of 2 or more pound s above your target weight or increased shortness of breath to your physi oumou. *Signs and symptoms of Heart Failure worsening [...] not smoke and avoid second hand smoke. THANK YOU FOR CHOOSING [facility] Our goal is to provide you with the highest level of care and service. Your fe edback about the positive experience and opportunities for us to better serve yo u is important to us. Patients will be randomly selected for either a phone or e-mail survey. * Phone surveys will be conducted by a non-[facility] employed attendant to patients of [facility] inpatient unit, surgery, emergency department, home health or convenient care. * E-mail surveys will be delivered to [facility] Clinic patients and outpatients. ................................................................................ ...................................................... IMPORTANT EMERGENCY PHONE NUMBERS Poison Control [place] Crisis Hotline- Domestic Violence Suicide Prevention Lifeline * Attachments The following attachments cannot be sent through Care Everywhere.* CHEST PAIN (ANGINA): AFTER YOUR VISIT (GERMAN) documented in this encounter Medications at Time [...] pm prn documented as of this encounter Progress Notes * Carmella López RN - 08/09/2012 11:45 PM CDT 2310: Patient reporting "knotting" pain in left shoulder, upper back and chest. Nitro given at this time (see MAR for details). Vital signs stable. No associate d shortness of breath or diaphoresis. 2325: No relief with first nitro, vital signs stable, second nitro given at this time. 2333: No relief with second nitro, vital signs stable, third nitro given at this time. 2338: No relief, hydrocodone given. 2345: Dr. Fernandez paged, updated on patient condition, no new orders received. Wi ll continue to monitor patient. documented in this encounter H&P Notes * Kaye Fernandez MD - 08/10/2012 1:49 PM CDT [address] [place] [address] Patient Name: OLIVERIO TINSLEY CSN: [id number] : 1950 Provider: Kaye Fernandez M.D. Admitted: 08/09/2012 HISTORY AND PHYSICAL PATIENT PROFILE: A 61-year-old local resident. CHIEF COMPLAINT: Chest pain. HISTORY OF PRESENT ILLNESS: This gentleman has had some chest pain with some ra diation through to his back and a history of coronary artery disease, not exerti on related, without palpitations. He has had some mild shortness of breath and was anxious. He was evaluated by nurse practitioner Sybil Henry, in the [facility] room. EKG and cardiac enzymes were normal but decision was made to place him in observation bed because of his past history. PAST MEDICAL HISTORY: Insulin-requiring type 2 diabetes mellitus, seizure disor fatuma, chronic ischemic coronary artery disease, obstructive lung disease, degener ative arthritis. PAST SURGICAL HISTORY: Coronary artery bypass surgery 4 vessels, bilateral rakel ract surgery, TURP, laparoscopic cholecystectomy, appendectomy, umbilical hernia repair. SOCIAL HISTORY: Retired, disabled. Habits: Remote tobacco. No alcohol. ALLERGIES: CODEINE, DOXYCYCLINE, PHENOBARBITAL, PIPERACILLIN, TERAZOSIN, VALIUM . HOME MEDICATIONS: Albuterol by MDI, Tessalon 200 mg q.4 hours p.r.n. cough, Lori vix 75 mg per day, Voltaren 50 mg b.i.d., Zetia 10 mg per day, TriCor 145 mg tab let per day, insulin Lantus 20 units h.s., isosorbide 1 tablet b.i.d., Reglan 5 mg q.i.d., Actos 30 mg per day, phenytoin 1 tablet b.i.d., Ambien 10 mg h.s.. REVIEW OF SYSTEMS: HEENT: Denies any headache, blurry vision, double vision or dysphagia. RESPIRATORY: Underlying history of chronic shortness of breath and increased shortness of breath with anxiety here in the last 24 hours. CARDIOVAS CULAR: History of coronary artery bypass surgery and chest pain. See above. G I: No nausea, vomiting, diarrhea or bowel disorder. : No dysuria, frequency, hematuria or urologic abnormality. Neurologic: Underlying anxiety disorder. No CVA, syncope or other neurologic abnormality. Endocrine: Type 2 insulin-requ iring diabetes mellitus. PHYSICAL EXAM: GENERAL: Appeared to be in acute distress secondary to anxiety over chest disco mfort. VITAL SIGNS: Blood pressure 132/73. HEENT: Pupils equal, round, react to light. TMs clear. NECK: Supple without adenopathy or increased thyroid. LUNGS: Clear to auscultation and percussion. HEART: Has a 2/6 systolic ejection murmur. Normal rate and rhythm. EKG showin g no acute changes. ABDOMEN: Soft, obese, nontender. No organomegaly or masses. EXTREMITIES: Trace edema of lower extremities. NEUROLOGIC: Alert, anxious, oriented x3. Moving all extremities. No pathologi c reflexes. LABORATORY DATA: Other notable findings include white count 7600, hemoglobin of 13. Glucose 162, creatinine 1.18, sodium 135, potassium 4.6. Liver enzymes wit hin normal limits. BNP of 208. INR 1.12. D-dimer less than 100. Myoglobin 42 , troponin less than 0.04. Chest x-ray shows no acute changes. EKG is normal sinus rhythm, rate of 57. IMPRESSION: 1. Chest pain. 2. History of coronary artery disease. PLAN: Place on observation bed for further evaluation and therapy. Dictated by: Kaye Fernandez M.D./MEDUncovet D: [id number] V: [id number] * Kaye Fernandez MD - 08/10/2012 9:51 AM CDT This has been dictated For 08/09/12 documented in this encounter Procedure Notes * Aok Scanning, [facility] - 09/08/2012 10:15 AM CDT Associated Order(s): EKG 12-LEAD Electronically signed by Interface, [facility] Aok Transcriptions Incoming at 2 10:15 AM CDT * Aok Scanning, [facility] - 08/11/2012 2:17 PM CDT Associated Order(s): TELEMETRY REPORT Electronically signed by Interface, [facility] Aok Transcriptions Incoming at 2 2:17 PM CDT * David Ferrer MD - 08/10/2012 2:58 PM CDT Associated Order(s): EKG 12-LEAD [facility]. [address] [place] [address]. [place], [place] [address] EKG OLIVERIO TINSLEY [id number] 08/09/12 at 1524. The rhythm is regular, sin us in origin with a rate of 57 beats per minute. Electrical axis is leftward. Li mb leads show low voltage. T waves are flattened across the tracing. Compared wi previous tracing dated May 28 2012, R waves are better seen in limb lead I II currently. Diagnosis: 1) Sinus rhythm, rate 57 beats per minute. 2) Low volt age limb leads. 3) Leftward axis. 4) Nonspecific T wave flattening. Dictated by Debbie. Dictated by: EKG DD 08/10/12 TD 08/10/12/LRG EKG REPORT # [id number] ORDER # documented in this encounter ED Notes * Sybil Henry, GERIATRIC PHYSICAL THERAPIST - 08/09/2012 3:50 PM CDT HISTORY OF PRESENT ILLNESS Oliverio Tinsley, a 61 y.o. male presents to the ED with a Chief Complaint of Ch est Pain HPI Comments: Chest pain on and off the last 24 hours. HH checked pulse today a t 40. The history is provided by the patient. REVIEW OF SYSTEMS Review of Systems Constitutional: Negative for fever, chills, diaphoresis and fatigue. HENT: Negative for congestion. Respiratory: Positive for shortness of breath. Negative for cough. Cardiovascular: Positive for chest pain and leg swelling (chronic no change). Gastrointestinal: Negative for nausea, vomiting, abdominal pain and diarrhea. Genitourinary: Negative for dysuria and flank pain. Skin: Negative for rash. Psychiatric/Behavioral: Negative for confusion. PAST MEDICAL HISTORY [...] 02/01/2009 COLONOSCOPY performed by MARY MOORE at [facility] OR Hx hernia repair 1988 And age 4 Hx lap cholecystectomy 05/17/07 Hx coronary artery bypass graft Hx heart catheterization 04/10 With angioplasty, 2 stents Pr lap,appendectomy 05/28/2012 APPENDECTOMY LAPAROSCOPIC performed by Mary Moore MD at [facility] [place] Pr repair umbilical colleen,4+y/o,reduc 05/28/2012 HERNIA UMBILICAL REPAIR performed by Mary Moore MD at [facility] [place] Family History Problem Relation Age of [...] Never Used Alcohol Use: No Drug Use: Yes Special: Prescription Drugs Sexually Active: Not Currently Patient Active Problem List Diagnoses Date Noted [...] MEDICATIONS Patient's Home Medications Current Home Medications ACCU-CHEK ACTIVE TEST STRP by See Admin Instructions route 2 times daily. In the am & pm prn AEROBID IN Take 2 Puffs by inhalation [...] CAPSULE Take 2 Caps by mouth daily. FLUOXETINE (PROZAC) 20 MG ORAL CAPSULE Take 20 mg by mouth daily. FLUTICASONE (FLONASE) 50 MCG/SPRAY BOTH NOSTRIL SPSN Administer 2 Sprays in each nostril daily. INDOMETHACIN SR (INDOCIN SR) 75 MG ORAL CAPSULE Take 1 Cap by mouth daily. INSULIN GLARGINE (LANTUS) 100 UNIT/ML SUBCUT SOLN 20 units at hs ISOSORBIDE MONONITRATE SR 24 HOUR (IMDUR) 60 [...] conor ly before meals and at bedtime. METOPROLOL SUCCINATE ER 24 HOUR (TOPROL XL) 25 MG ORAL TABLET Take 1 Tab by mouth daily. MULTIVITAMIN PO Take 1 [...] CAPSULE Take 1 Cap by mouth daily. RIFAMPIN (RIFADINE) 300 MG ORAL CAPSULE Take 1 Cap by mouth every 12 hours. SIMVASTATIN (ZOCOR) 80 MG ORAL TABLET Take [...] Encounter PHYSICAL EXAM Initial Vitals BP -- 132/73 Pulse -- 54 Resp -- 14 Temp -- Temp src -- SpO2 -- 96% Physical Exam Constitutional: He is oriented to person, place, and time. He appears well-devel oped and well-nourished. He appears distressed. Cardiovascular: Normal rate, regular rhythm and intact distal pulses. Murmur heard. Pulmonary/Chest: Effort normal and breath sounds normal. Abdominal: Soft. Bowel sounds are normal. Musculoskeletal: He exhibits edema (trace bilateral lower extremity). Neurological: He is alert and oriented to person, place, and time. Skin: Skin is warm and dry. Psychiatric: His mood appears anxious. DIAGNOSTICS LAB: Results for orders placed during the hospital encounter of 08/09/12 (from the [facility] 24 hour(s)) CBC WITH MANUAL DIFFERENTIAL Component Value Range EOSINOPHILS 3 0 - 8 (%Manual) BANDS 2 0 - 22 (%Manual) NEUTROPHILS, SEG 61 30 - 68 (%Manual) LYMPHOCYTES 31 14 - 50 (%Manual) MONOCYTE 3 0 - 11 (%Manual) PLATELET EST. Normal WBC ESTIMATE Normal WBC 7.64 3.0 - 10.4 (x10E3) RBC 4.54 4.15 - 5.75 (x10E6) HEMOGLOBIN 13.0 (*) 13.8 - 17.4 (g/dL) HEMATOCRIT 38.7 38.6 - 49.4 (%) MCV 85.3 79 - 100 (fL) MCH 28.6 28 - 34 (pg) MCHC 33.6 31 - 35 (g/dL) RDW 13.9 12.1 - 14.1 (%) PLATELETS 297 148 - 408 (x10E3) MPV 7.3 (*) 7.4 - 10.6 (fL) NEUTROPHILS 65.5 43 - 73 (%) LYMPHOCYTES 27.1 19 - 47 (%) MONOCYTES 4.8 3 - 9 (%) EOSINOPHILS 2.2 0 - 6 (%) BASOPHILS 0.3 0 - 1.2 (%) NEUTROPHIL ABSOLUTE 5.01 1.3 - 7.6 (x10E3) LYMPHOCYTE ABSOLUTE 2.08 0.6 - 4.9 (x10E3) MONOCYTE ABSOLUTE 0.37 0.1 - 0.9 (x10E3) EOSINOPHIL ABSOLUTE 0.17 0.0 - 0.2 (x10E3) BASOPHILS ABSOLUTE 0.02 0 - 0.1 (x10E3) COMPREHENSIVE METABOLIC PANEL Component Value Range GLUCOSE 162 (*) 70 - 100 (mg/dl) BUN 32.0 (*) 7 - 20 (mg/dl) CREATININE 1.18 0.8 - 1.3 (mg/dl) BUN/CREAT RATIO 27.1 (*) 10 - 20 GFR 66 >60 (ml/min) SODIUM 135 134 - 145 (mmol/L) POTASSIUM 4.6 3.3 - 4.8 (mmol/L) CHLORIDE 104 98 - 107 (mmol/L) CO2 23.2 22 - 31 (mmol/L) ANION GAP 12 4 - 20 CALCIUM 8.7 8.5 - 10.1 (mg/dl) ALBUMIN 4.0 3.4 - 5.0 (g/dl) TOTAL PROTEIN 7.1 6.4 - 8.2 (g/dl) GLOBULIN (CALC) 3.1 ALBUMIN/GLOBULIN RATIO 1.3 BILIRUBIN TOTAL 0.3 <1.1 (mg/dl) ALKALINE PHOSPHATASE 62 50 - 136 (IU/L) AST 20 10 - 40 (IU/L) ALT 35 25 - 70 (IU/L) BRAIN NATRIURETIC PEPTIDE, BNP OR PROBNP Component Value Range BRAIN NATRIURETIC PEPTIDE 208 (*) 0 - 125 (pg/ml) PROTIME-INR Component Value Range PROTIME 12.1 (*) 10.1 - 11.5 (Sec) INR 1.12 (*) 2.0 - 3.0 D-DIMER Component Value Range D-DIMER QUANT Less than 100 0 - 400 (ng/mL) MYOGLOBIN Component Value Range MYOGLOBIN, PLASMA 42 16 - 97 (ng/ml) TROPONIN Component Value Range TROPONIN I LESS THAN 0.04 0 - 0.4 (ng/ml) RADIOLOGY: XR CHEST PA OR AP Radiologist Impression: IMPRESSION: No acute abnormalities identified in the est. EKG: NSR 57 PROCEDURES Procedures REEVALUATION MEDICAL DECISION MAKING AND PLAN OF CARE Continued pain, admit observation, pain mgmt, r/o cardiac enzymes . New Prescriptions for this Encounter Last vitals BP 118/76 | Pulse 54 | Resp 18 | SpO2 95% Coding Medications Administered During the ED Stay from 08/09/2012 1511 to 08/09/2012 1 706 Date/Time Order Dose Route Action 08/09/2012 1530 sodium chloride 0.9 % flush injection 3 mL 3 mL IV Given 08/09/2012 1535 nitroglycerin (NITROSTAT) tablet 0.4 mg 0.4 mg Sublingual Given 08/09/2012 1530 nitroglycerin (NITROSTAT) tablet 0.4 mg 0.4 mg Sublingual Given 08/09/2012 1539 fentaNYL PF (SUBLIMAZE) 50 mcg/mL injection 50 mcg 50 mcg IV Gi kathe 08/09/2012 1540 aspirin (AMELIA CHEWABLE) chew tablet 324 mg 324 mg Oral Given 08/09/2012 1559 fentaNYL PF (SUBLIMAZE) 50 mcg/mL injection 50 mcg 50 mcg IV Gi kathe 08/09/2012 1616 fentaNYL PF (SUBLIMAZE) 50 mcg/mL injection 50 mcg 50 mcg IV Gi kathe 08/09/2012 1642 LORazepam (ATIVAN) 2 mg/mL injection 1 mg 1 mg IV Given CLINICAL IMPRESSION Chest pain CASE DISCUSSED Dr Fernandez, agusto mpg Dr Mccallum PATIENT COUNSELING Diagnostics reviewed and questions answered. Diagnosis, treatment options and p biranna of care discussed with understanding verbalized. DISPOSITION, EDUCATION AND MEDICATION RECONCILIATION Medications reconciled. See after visit summary for patient education on discha rged patients. documented in this encounter Miscellaneous Notes * Scanned Form - Andie, Willy - 11/11/2012 11:44 AM IVORY CARVER Electronically signed by Bong El Transcriptions Incoming at 11:44 AM IVORY CARVER * Scanned Form - Aok Scanning, [facility] - 08/11/2012 2:40 PM CDT Electronically signed by Interface, [facility] Aok Transcriptions Incoming at 2 2:40 PM CDT * Scanned Form - Aok Scanning, [facility] - 08/11/2012 1:51 PM CDT Electronically signed by Interface, [facility] Aok Transcriptions Incoming at 2 1:51 PM CDT * Care Plan - Christi Dalton RN - 08/09/2012 7:03 PM CDT Problem: General Plan of Care (Adult, Obstetrics) Goal: Plan of Care Review (Adult, Obstetrics) The patient and/or their branch customer service representative will communicate an understanding of the ir plan of care. Outcome: Progressing Discussed plan of care with Mr Tinsley and he verbalized understanding. documented in this encounter Plan of Treatment Not on filedocumented as of this encounter Procedures Comments Procedure Name Priority Date/Time Associated Diag nosis EKG 12-LEAD Stat 09/08/2012 10:15 AM CDT TELEMETRY REPORT 08/11/2012 2:17 PM CDT CARDIAC ENZYMES Stat 08/10/2012 3:30 AM CDT TROPONIN Stat 08/10/2012 3:30 AM CDT POC GLUCOSE Routine 08/10/2012 12:03 AM CDT URINALYSIS WITH REFLEX Stat 08/09/2012 CULTURE 10:20 PM CDT CARDIAC INTERPRETATION (6 Stat 08/09/2012 HR) 9:35 PM CDT TROPONIN Stat 08/09/2012 9:35 PM CDT CARDIAC INTERPRETATION (3 Stat 08/09/2012 HR) 6:15 PM CDT TROPONIN Stat 08/09/2012 6:15 PM CDT MYOGLOBIN Stat 08/09/2012 6:15 PM CDT XR CHEST PA OR AP 1 VW Stat 08/09/2012 3:41 PM CDT PROTIME-INR Stat 08/09/2012 3:30 PM CDT D-DIMER Stat 08/09/2012 3:30 PM CDT CBC WITH MANUAL Stat 08/09/2012 DIFFERENTIAL 3:30 PM CDT TROPONIN Stat 08/09/2012 3:30 PM CDT BRAIN NATRIURETIC Stat 08/09/2012 PEPTIDE, BNP OR PROBNP 3:30 PM CDT MYOGLOBIN Stat 08/09/2012 3:30 PM CDT COMPREHENSIVE METABOLIC Stat 08/09/2012 PANEL 3:30 PM CDT documented in this encounter Results * EKG 12-LEAD (09/08/2012 10:15 AM CDT) Narrative Performed At This result has an attachment that is n ot available. Transcriptions David Bernard MD - 08/10/2012 2:58 PM CDT [facility]. [address] [place] [address] EKG OLIVERIO TINSLEY [id number] 08/09/12 at 1524. The rhythm is regular, sinus in origin with a rate of 57 beats per minute. Electrical axis is leftward. Limb leads show low voltage. T waves are flattened across the tracing. Compared with previous tracing dated May 28 2012, R waves are better seen in limb lead III currently. Diagnosis: 1) Sinus rhythm, rate 57 beats per minute. 2) Low voltage limb leads. 3) Leftward axis. 4) Nonspecific T wave flattening. Dictated by S.VaKrlosW. Dictated by: EKG DD 08/10/12 TD 08/10/12/LRG EKG REPORT # [id number] ORDER # 09/08/2012 10:15 AM CDT * TELEMETRY REPORT (08/11/2012 2:17 PM CDT) Narrative Performed At This result has an attachment that is n ot available. Procedure Note Interface, Bong Aok Transcriptions Incoming - 08/11/2012 2:17 PM CDT * TROPONIN (08/10/2012 3:30 AM CDT) [facility] TROPONIN I 0.08Comment: MARTIFAYEMARIUSZ 0 - 0.4 ng/ml [facility] ACCT#[id number], ,,,, LABORATORY SERVICES - [place] Specimen Narrative Performed At CARDIAC TROP-12HR TROP-12 HR from [id number]. [facility] LABORATORY CARDIAC Final: FINAL from [id number]. SERVICES - [place] [facility] Performing Organization Address [facility] one Number [facility] LABORATORY SERVICES CLIA# [id number] MARIUSZ JEFFERSON 667 - [place] [address] [place] [address] LABORATORY SERVICES CLIA# [id number] [place] [address] - [address] * CARDIAC ENZYMES (08/10/2012 3:30 AM CDT) [facility] INTERPRETATION See below. SUGEY Comment: LABORATORY INTERPRETATION - 08/10/12 0816 SERVICES [facility] cardiac marker seriesFAYE no evidence of acute myocardial infarction. Linda Elise. [facility] ACCT#[id number], ,,,, Specimen Blood specimen (specimen) Narrative Performed At CARDIAC TROP-12HR TROP-12 HR from [id number]:[id number]. [facility] LABORATORY CARDIAC Final: FINAL from [id number]. SERVICES - [place] Performing Organization Address [facility] one Number [facility] LABORATORY SERVICES CLIA# [id number] MARIUSZ JEFFERSON 667 - [facility] FAYE [address] [place] [address] LABORATORY SERVICES CLIA# [id number] [place] [address] * POC GLUCOSE (08/10/2012 12:03 AM CDT) Pathologist [facility] POC GLUCOSE 136 (H)Comment: Luigi Kaur 70 - 110 mg/dl Mariusz Guzman, Point of Care LABORATORY Site,,,, SERVICES - [place] POC GLUCOSE 136 (H) 70 - 110 mg/dl [facility] LABORATORY SERVICES - [place] Specimen Capillary blood specimen (specimen) Performing Organization Address [facility]/Zipcode Ph one Number [facility] LABORATORY SERVICES CLIA# [id number] MARIUSZ JEFFERSON [address] 01 - [place] [address] [place] [address] LABORATORY SERVICES CLIA# [id number] MARIUSZ [place]ERSON [address] - [place] [address] [place] [address] * URINALYSIS WITH REFLEX CULTURE (08/09/2012 10:20 PM CDT) GLUCOSE UA Negative Negative mg/dl [facility] LABORATORY SERVICES - [place] BILIRUBIN UA Negative Negative [facility] LABORATORY SERVICES - [place] KETONES UA Negative Negative mg/dl [facility] LABORATORY SERVICES - [place] SPECIFIC 1.017 1.002 - 1.030 [facility] GRAVITY UA LABORATORY SERVICES - [place] PH UA 6.0 [facility] LABORATORY SERVICES - [place] PROTEIN UA Negative Negative mg/dl [facility] - [place] UROBILINOGEN UA <2.0 0.2 - 1.0 EU/dl [facility] - [place] NITRITE UA Negative Negative [facility] - [place] BLOOD UA Negative Negative [facility] - [place] LEUKOCYTE Negative Negative [facility] ESTERASE UA LABORATORY SERVICES - [place] COLOR UA Yellow [facility] - [place] CLARITY UA Clear [facility] SERVICES - [place] WBC UA 2-5 0 - 5 /HPF [facility] LAB[facility] SERVICES - [place] RBC UA 2-5 0 - 2 /HPF [facility] LAB[facility] - [place] MUCOUS, URINE Light /LPF [facility] LABORATORY SERVICES - [place] EPITHELIAL Rare squamous [facility] CELLS, URINE LABORATORY SERVICES - [place] HYALINE CAST 0-5Comment: [facility] [facility] LYNN Negative /LPF [facility] ACCT#[id number], ,,,, LABORATORY SERVICES - [place] Specimen Urine, clean catch Performing Organization Address City/[facility] Ph one Number [facility] LABORATORY SERVICES CLIA# [id number] MARIUSZ JEFFERSON [address] - [place] [address] [place] [address] LABORATORY SERVICES CLIA# [id number] MARIUSZ JEFFERSON [address] - [place] [address] [place] [address] * CARDIAC INTERPRETATION (6 HR) (08/09/2012 9:35 PM CDT) INTERPRETATION Test not performedComment: [facility] LABORATORY ACCT#[id number], ,,,, SERVICES - [place] Specimen Narrative Performed At CARDIAC TROP-6HR TROP-6 HR from 1002:[id number]. [facility] LABORATORY CARDIAC Interim: CAR6 from 1002:[id number]. SERVICES - [place] Performing Organization Address [facility] one Number [facility] LABORATORY SERVICES CLIA# [id number] [place] [address] LABORATORY SERVICES CLIA# [id number] [place] [address] * TROPONIN (08/09/2012 9:35 PM CDT) TROPONIN I 0.04Comment: [facility] 0 - 0.4 ng/ml [facility] ACCT#[id number], ,,,, LABORATORY SERVICES - [place] Specimen Narrative Performed At CARDIAC TROP-6HR TROP-6 HR from 1002:[id number]. [facility] CARDIAC Interim: CAR6 from 1002:[id number]. SERVICES - [facility] FAYE Performing Organization Address [facility] one Number [facility] LABORATORY SERVICES CLIA# [id number] [place] MCK[place]NEY [facility] [phone] - [address] LABORATORY SERVICES CLIA# [id number] [place], [place] [id number] [place] [address] * CARDIAC INTERPRETATION (3 HR) (08/09/2012 6:15 PM CDT) INTERPRETATION Test not performedComment: [facility] LAB[facility] ACCT#[id number], ,,,, SERVICES - [facility] FAYE Specimen Narrative Performed At CARDIAC NYLA-3HR NYLA-3 HR from 1002:[id number]. [facility] ABORATORY CARDIAC TROP-3HR TROP-3 HR from 1002:[id number]. SERVI [facility] CARDIAC Interim: CAR3 from 1002:[id number]. FAYE Performing Organization Address [facility] Ph one Formerly [facility], [facility] LABORATORY SERVICES CLIA# [id number] [place] [address] LABORATORY SERVICES CLIA# [id number] [place], [place] [id number] [place] [address] * TROPONIN (08/09/2012 6:15 PM CDT) TROPONIN I LESS THAN 0.04Comment: 0 - 0.4 ng/ml [place] LABORATORY ACCT#[id number], ,,,, SERVICES - [place] Specimen Narrative Performed At CARDIAC NYLA-3HR NYLA-3 HR from 1002:[id number]. [facility] CARDIAC TROP-3HR TROP-3 HR from 1002:[id number]. [facility] CARDIAC Interim: CAR3 from 1002:[id number]. FAYE Performing Organization Address [facility] Ph one Formerly [facility], [facility] LABORATORY SERVICES CLIA# [id number] [place] [address] LABORATORY SERVICES CLIA# [id number] [place], [place] [address] [place] [address] * MYOGLOBIN (08/09/2012 6:15 PM CDT) MYOGLOBIN, 43Comment: [facility] 16 - 97 ng/ml M [facility] ACCT#[id number], ,,,, LABORATORY SERVICES - [place] Specimen Narrative Performed At CARDIAC NYLA-3HR NYLA-3 HR from 1002:[id number]. [facility] CARDIAC TROP-3HR TROP-3 HR from 1002:[id number]. [facility] CARDIAC Interim: CAR3 from 1002:[id number]. FAYE Performing Organization Address [facility] one Formerly [facility] LABORATORY SERVICES CLIA# [id number] [place], [place] [address] LABORATORY SERVICES CLIA# [id number] [place] [address] * XR CHEST PA OR AP (08/09/2012 3:41 PM CDT) Specimen Impressions Performed At IMPRESSION: No acute abnormalities identified in the chest. INTERFACE SYSTEM Narrative Performed At Portable chest INTERFACE SYSTEM Upright portable chest is compared with 05/28/2012. Mild cardiomegaly with prior midline st ernotomy and coronary artery bypass surgery noted. There and r dionicio nges of COPD. No evidence of congestive failure or acute pneumonia o r pleural effusion or pneumothorax. Procedure Note Interface, [facility] Incoming Radiology Results - 08/09/2012 3:49 PM CDT Portable chest Upright portable chest is compared with 05/28/2012. Mild cardiomegaly with prior midline sternotomy and coronary artery bypass surgery noted. There and r changes of COPD. No evidence of congestive failure or acute pneumonia or pleural effusion or pneumothorax. IMPRESSION IMPRESSION: No acute abnormalities identified in the chest. Performing Organization Address [facility] one [facility] INTERFACE SYSTEM INTERFACE SYSTEM Refer to clinic/hospital department * TROPONIN (08/09/2012 3:30 PM CDT) TROPONIN I LESS THAN 0.04Comment: 0 - 0.4 ng/ml [facility] ACCT#[id number], ,,,, SERVICES - [place] Specimen Narrative Performed At CARDIAC NYLA-0HR NYLA-0 HR from 1002:[id number]. [facility] AB[facility] CARDIAC TROP-0HR TROP-0 HR from 1002:[id number]. DEVANG MCKINNEY Performing Organization Address [facility] one Formerly [facility] LABORATORY SERVICES CLIA# [id number] [place], [place] [address] LABORATORY SERVICES CLIA# [id number] [place] [address] * MYOGLOBIN (08/09/2012 3:30 PM CDT) MYOGLOBIN, 42Comment: [facility] 16 - 97 ng/ml [facility] ACCT#[id number], ,,,, LABORATORY SERVICES - [place] Specimen Narrative Performed At CARDIAC NYLA-0HR NYLA-0 HR from 1002:[id number]. [facility] AB[facility] CARDIAC TROP-0HR TROP-0 HR from 1002:[id number]. DEVANG MCKINNEY Performing Organization Address [facility] one Formerly [facility] LABORATORY SERVICES CLIA# [id number] [place], [place] [address] LABORATORY SERVICES CLIA# [id number] [place] [address] * D-DIMER (08/09/2012 3:30 PM CDT) Pathologist [facility] D-DIMER QUANT Less than 100 0 - 400 ng/mL [facility] Comment: LABORATORY 90% of patients testing below SERVICES - [facility] 400 ng/ml have proven negative FAYE for Thromboembolic Events. [facility] ACCT#[id number], ,,,, Specimen Blood specimen (specimen) Performing Organization Address [facility] one Formerly [facility] LABORATORY SERVICES CLIA# [id number] [place] M[place] [facility] [phone] LABORATORY SERVICES CLIA# [id number] [place] [address] * PROTIME-INR (08/09/2012 3:30 PM CDT) [facility] PROTIME 12.1 (H) 10.1 - 11.[address] [facility] INR 1.12 (L)Comment: 2.0 - 3.0 [facility] LAB[facility]ORY ACCT#[id number], ,,,, SERVICES - [place] Specimen Blood specimen (specimen) Performing Organization Address [facility] LABORATORY SERVICES CLIA# [id number] [place] MCKIN[place] [facility] [phone] LABORATORY SERVICES CLIA# [id number] [place] [address] * BRAIN NATRIURETIC PEPTIDE, BNP OR PROBNP (08/09/2012 3:30 PM CDT) [facility] BRAIN 208 (H)Comment: 0 - 125 pg/ml [facility]URETIC [facility] PEPTIDE ACCT#[id number], ,,,, SERVICES - [place] Specimen Blood specimen (specimen) Performing Organization Address [facility] LABORATORY SERVICES CLIA# [id number] MARIUSZ JEFFERSON [facility] [phone] LABORATORY SERVICES CLIA# [id number] [place] [address] - [address] * COMPREHENSIVE METABOLIC PANEL (08/09/2012 3:30 PM CDT) [facility] GLUCOSE 162 (H) 70 - 100 mg/dl [facility] LABORATORY SERVICES - [place] BUN 32.0 (H) 7 - 20 mg/dl [facility] LABORATORY SERVICES - [facility] CREATININE 1.18 0.8 - 1.3 mg/dl [facility] LABORATORY SERVICES - [place] BUN/CREAT RATIO 27.1 (H) 10 - 20 [facility] LABORATORY SERVICES - [place] GFR 66 >60 ml/min [facility] LABORATORY SERVICES - [facility] SODIUM 135 134 - 145 mmol/L [facility] LABORATORY SERVICES - [facility] POTASSIUM 4.6 3.3 - 4.8 mmol/L [facility] LABORATORY SERVICES - [facility] CHLORIDE 104 98 - 107 mmol/L [facility] LABORATORY SERVICES - [place] CO2 23.2 22 - 31 mmol/L [facility] LABORATORY SERVICES - [place] ANION GAP 12 4 - 20 [facility] LABORATORY SERVICES - [facility] CALCIUM 8.7 8.5 - 10.1 mg/dl [facility] LABORATORY SERVICES - [facility] ALBUMIN 4.0 3.4 - 5.0 g/dl [facility] LABORATORY SERVICES - [facility] F[facility] TOTAL PROTEIN 7.1 6.4 - 8.2 g/dl [facility] LABORATORY SERVICES - [facility] GLOBULIN (CALC) 3.1 [facility] LABORATORY SERVICES - [facility] F[facility] ALBUMIN/GLOBULI 1.3 [facility] N RATIO LABORATORY SERVICES - [facility] FAYE BILIRUBIN TOTAL 0.3 <1.1 mg/dl [facility] LABORATORY SERVICES - [place] ALKALINE 62 50 - 136 IU/L [facility] PHOSPHATASE LABORATORY SERVICES - [place] AST 20 10 - 40 IU/L [facility] LABORATORY SERVICES - [facility] FAYE ALT 35Comment: [facility] 25 - 70 IU/L [facility] ACCT#[id number], ,,,, LABORATORY SERVICES - [facility] FAYE Specimen Blood specimen (specimen) Performing Organization Address City/State/Zipcode Ph one Number [facility] LABORATORY SERVICES CLIA# [id number] [place] [address] - [facility] FAYE [address] [place] [address] LABORATORY SERVICES CLIA# [id number] [place] [address] - [address] * CBC WITH MANUAL DIFFERENTIAL (08/09/2012 3:30 PM CDT) EOSINOPHILS 3 0 - 8 %Manual [facility] - [place] BANDS 2 0 - 22 %Manual [facility] - [place] NEUTROPHILS, 61 30 - 68 %Manual [facility] LABORATORY SERVICES - [place] LYMPHOCYTES 31 14 - 50 %Manual [facility] SERVICES - [place] MONOCYTE 3 0 - 11 %Manual [facility] - [place] PLATELET EST. Normal [facility] SERVICES - [facility] WBC ESTIMATE Normal [facility] SERVICES - [place] WBC 7.64 3.0 - 10.4 x10E3 [facility] SERVICES - [place] RBC 4.54 4.15 - 5.75 x10E6 [facility] SERVICES - [place] HEMOGLOBIN 13.0 (L) 13.8 - 17.4 g/dL [facility] SERVICES - [place] HEMATOCRIT 38.7 38.6 - 49.4 % [facility] SERVICES - [place] MCV 85.3 79 - 100 fL [facility] SERVICES - [place] MCH 28.6 28 - 34 pg [facility] SERVICES - [place] MCHC 33.6 31 - 35 g/dL [facility] - [place] RDW 13.9 12.1 - 14.1 % [facility] SERVICES - [place] PLATELETS 297 148 - 408 x10E3 [facility] SERVICES - [place] MPV 7.3 (L) 7.4 - 10.6 fL [facility] - [place] NEUTROPHILS 65.5 43 - 73 % [facility] SERVICES - [place] LYMPHOCYTES 27.1 19 - 47 % [facility] - [place] MONOCYTES 4.8 3 - 9 % [facility] - [place] EOSINOPHILS 2.2 0 - 6 % [facility] - [place] BASOPHILS 0.3 0 - 1.2 % [facility] - [place] NEUTROPHIL 5.01 1.3 - 7.6 x10E3 [facility] LABORAT[facility] SERVICES - [place] LYMPHOCYTE 2.08 0.6 - 4.9 x10E3 [facility] LABORATORY SERVICES - [place] MONOCYTE 0.37 0.1 - 0.9 x10E3 [facility] LABORATORY SERVICES - [place] EOSINOPHIL 0.17 0.0 - 0.2 x10E3 [facility] LABORATORY SERVICES - [place] BASOPHILS 0.02Comment: [facility] 0 - 0.1 x10E3 [facility] ACCT#[id number], ,,,, LABORATORY SERVICES - [place] Specimen Blood specimen (specimen) Performing Organization Address City/State/Zipcoaz Ph one Number [facility] LABORATORY SERVICES CLIA# [id number] MARIUSZ JEFFERSON [address] - [place] [address] [place] [address] LABORATORY SERVICES CLIA# [id number] MARIUSZ JEFF[place] [address] - [place] [address] documented in this encounter Visit Diagnoses Not on filedocumented in this encounter Administered Medications Action Date Dose Rate Site Medication Order MAR Action 08/10/2012 3:12 AM CDT 650 mg acetaminophen (TYLENOL) tablet 650 mg Given 650 mg, Oral, EVERY 4 HOURS PRN, Starting Wed08/09/12 at 1741, Until Wed08/10/12 at 1247, Temperature, For fever greater than 101 F, Routine 08/09/2012 3:40 PM CDT 324 mg aspirin (AMELIA CHEWABLE) chew tablet 324 Given mg 324 mg, Oral, ONE TIME ONLY, 1 dose, 08/09/12 at 1545, Routine ASPIRIN 81 MG CHEWABLE TABLET 1 dose, Starting Wed08/09/12 at 1533, Until Wed08/09/12 at 1540, Leny OMNMARCELO: cabinet override, 08/09/2012 9:00 PM CDT 25 mg bethanechol (URECHOLINE) tablet 25 mg Given 25 mg, Oral, FOUR TIMES DAILY BEFORE MEALS AND AT BEDTIME, First dose (after last reorder) on Wed08/09/12 at 2100, Until Discontinued, Routine 08/09/2012 8:30 PM CDT 50 mg diclofenac sodium (VOLTAREN) tablet 50 Given mg 50 mg, Oral, TWO TIMES DAILY, First dos e (after last reorder) on Wed08/09/12 at 2030, Until Discontinued, Routine 08/09/2012 5:24 PM CDT 40 mg Abdomen, Left Upper Quadrant enoxaparin (LOVENOX) injection 40 mg Given 40 mg, subCUT, DAILY, First dose on Wed08/09/12 at 1800, Until Discontinued, Routine 08/09/2012 11:29 PM CDT 10 mg ezetimibe (ZETIA) tablet 10 mg Given 10 mg, Oral, DAILY AT BEDTIME, First dose (after last reorder) on Wed 2 at 2100, Until Discontinued, Routine 08/09/2012 8:45 PM CDT 145 mg fenofibrate nanocrystallized (TRICOR) Given tablet 145 mg 145 mg, Oral, DAILY WITH SUPPER, First dose (after last reorder) on Wed 2 at 2045, Until Discontinued, Routine FENTANYL (PF) 50 MCG/ML INJECTION 1 dose, Starting Wed08/09/12 at 1537, Until Wed08/09/12 at 1539, Leny SOSA: cabinet override, 08/09/2012 3:39 PM CDT 50 mcg Hand, Ri ght fentaNYL PF (SUBLIMAZE) 50 mcg/mL Given injection 50 mcg 50 mcg, IV, ONE TIME ONLY, 1 dose, Wed08/09/12 at 1545, Stat 08/09/2012 3:59 PM CDT 50 mcg Hand, Ri ght fentaNYL PF (SUBLIMAZE) 50 mcg/mL Given injection 50 mcg 50 mcg, IV, ONE TIME ONLY, 1 dose, Wed08/09/12 at 1600, Routine 08/09/2012 4:16 PM CDT 50 mcg fentaNYL PF (SUBLIMAZE) 50 mcg/mL Given injection 50 mcg 50 mcg, IV, ONE TIME ONLY, 1 dose, Wed08/09/12 at 1615, Stat 08/09/2012 5:14 PM CDT 50 mcg Hand, Ri ght fentaNYL PF (SUBLIMAZE) 50 mcg/mL Given injection 50 mcg 50 mcg, IV, ONE TIME ONLY, 1 dose, Wed08/09/12 at 1715, Routine 08/10/2012 10:33 AM CDT 45 mcg Arm, Lef t Upper flu vaccine 2011 (36 mos+)(PF) (FLUZONE) Given 45 mcg (15 mcg x 3)/0.5 mL syringe 45 mcg 45 mcg (0.5 mL), IM, ONE TIME ONLY, 1 dose, Wed08/10/12 at 1000, Routine 08/09/2012 11:38 PM CDT 1 Tablet HYDROcodone-acetaminophen (NORCO) 5-325 Given mg per tablet 1 Tab 1 Tablet, Oral, EVERY 4 HOURS PRN, Starting Wed08/09/12 at 1741, Until Wed08/10/12 at 1247, Pain, Mild, For Pain Scale 1-3, Routine 08/10/2012 12:04 AM CDT 20 Units Arm, Lef t Upper insulin glargine (LANTUS) 100 unit/mL Given injection 20 Units 20 Units, subCUT, DAILY AT BEDTIME, First dose (after last reorder) on Wed08/09/12 at 2100, Until Discontinued, Routine, Previous Med: insulin glargine (LANTUS) 100 unit/mL subCUT Soln - Orig Sig - Inject by subcutaneous injection . 20 units at hs., 08/09/2012 4:42 PM CDT 1 mg Hand, Ri ght LORazepam (ATIVAN) 2 mg/mL injection 1 Given mg 1 mg, IV, ONE TIME ONLY, 1 dose, Wed08/09/12 at 1645, Routine LORAZEPAM 2 MG/ML INJECTION 1 dose, Starting Wed08/09/12 at 1641, Until Wed08/09/12 at 1642, Leny SOSA: cabinet override, 08/09/2012 9:00 PM CDT 400 mg magnesium oxide (MAG-OX) tablet 400 mg Given 400 mg, Oral, THREE TIMES DAILY, First dose (after last reorder) on Wed 2 at 2100, Until Discontinued, Routine 08/09/2012 3:35 PM CDT 0.4 mg nitroglycerin (NITROSTAT) tablet 0.4 mg Given 0.4 mg, Sublingual, EVERY 5 MINUTES PRN , 3 doses, Starting Wed08/09/12 at 1533, Until Wed08/09/12 at 1741, Chest Pain, Routine 0.4 mg Given 08/09/2012 3:30 PM CDT 08/09/2012 11:33 PM CDT 0.4 mg nitroglycerin (NITROSTAT) tablet 0.4 mg Given 0.4 mg, Sublingual, EVERY 5 MINUTES PRN , Starting Wed08/09/12 at 2042, Until Wed08/10/12 at 1247, Chest Pain, Routine 0.4 mg Given 08/09/2012 11:25 PM CDT 0.4 mg Given 08/09/2012 11:16 PM CDT NITROGLYCERIN 0.4 MG SUBLINGUAL TABLET 1 dose, Starting Wed08/09/12 at 1523, Until Wed08/09/12 at 1530, Leny SOSA: cabinet override, 08/09/2012 7:00 PM CDT mg NITROGLYCERIN 0.4 MG SUBLINGUAL TABLET Admin by 1 dose, Starting Wed08/09/12 at 1849, Another Until Wed08/09/12 at 1900, Leny SOSA: mattinet override, (Comment) 08/10/2012 1:47 AM CDT 1 Tablet oxyCODONE-acetaminophen (PERCOCET) 5-325 Given mg per tablet 1 Tab 1 Tablet, Oral, EVERY 4 HOURS PRN, Starting Wed08/09/12 at 1741, Until Wed08/10/12 at 1247, Pain, Moderate, For Pain Scale 4-6, Routine 1 Tablet Given 08/09/2012 6:44 PM CDT 08/10/2012 6:37 AM CDT 40 mg pantoprazole (PROTONIX) tablet 40 mg Given 40 mg, Oral, DAILY BEFORE BREAKFAST, First dose (after last reorder) on Wed08/10/12 at 0730, Until Discontinued, Routine, Previous Med: esomeprazole (NEXIUM) 40 mg Oral CpDR - Orig Sig - Take 1 Cap by mouth daily before breakfast. , 08/09/2012 9:00 PM CDT 200 mg phenytoin sodium extended release Given (DILANTIN) capsule 200 mg 200 mg, Oral, TWO TIMES DAILY, First dose (after last reorder) on Wed 2 at 2100, Until Discontinued, Routine 08/09/2012 9:00 PM CDT 40 mg simvastatin (ZOCOR) tablet 40 mg Given 40 mg, Oral, DAILY LATE, First dose (after last reorder) on Wed08/09/12 at 2100, Until Discontinued, Routine 08/09/2012 3:30 PM CDT 3 mL Hand, Ri ght sodium chloride 0.9 % flush injection 3 Given mL 3 mL, IV, TWO TIMES DAILY, First dose o n Wed08/09/12 at 2100, Until Discontinued , Routine 08/09/2012 11:57 PM CDT 3 mL sodium chloride 0.9 % flush injection 3 Given mL 3 mL, IV, TWO TIMES DAILY, First dose o n Wed08/09/12 at 2100, Until Discontinued , Routine SODIUM CHLORIDE 0.9 % SYRINGE 1 dose, Starting Wed08/09/12 at 1523, Until Wed08/09/12 at 1530, Leny SOSA: cabinet override, 08/09/2012 9:00 PM CDT 0.4 mg tamsulosin (FLOMAX) capsule 0.4 mg Given 0.4 mg, Oral, DAILY AFTER SUPPER, First dose on Wed08/09/12 at 2100, Until Discontinued, Routine 08/09/2012 11:00 PM CDT 10 mg zolpidem (AMBIEN) tablet 10 mg Given 10 mg, Oral, NIGHTLY PRN, Starting Wed08/09/12 at 2358, Until Wed08/10/12 at 1247, Insomnia, Routine documented in this encounter
--- OUTSIDE RECORDS SUMMARY | 2020-03-24 14:34 | XMS REPORT | Encounter Summary ---
Author Author [facility] Organization [facility] Address Unknown Phone Unavailable Care Team Providers Care Radio Interference Expert Name Role Phone Shahram Mccallum MD PCP Unavailable Reason for Visit * Reason Comments Medication Refill Encounter Details Care Team Description Date Type Department Shahram Mccallum MD NO ADDRESS ON FILE 07/19/2012 Refill [facility] Primar y Care [address] [phone] Social History Date Tobacco Use Types Packs/Day [...]
--- OUTSIDE RECORDS SUMMARY | 2020-03-24 14:34 | XMS REPORT | Encounter Summary ---
Author Author [facility] Organization [facility] Address Unknown Phone Unavailable Care Team Providers Care Panama Hat Blocker Name Role Phone Shahram Mccallum MD PCP Unavailable Reason for Visit * Reason Comments Foot Pain Encounter Details Care Team Description Date Type Department Shahram Mccallum MD NO ADDRESS ON FILE Foot Pain 07/08/2012 Telephone [facility] Primar y Care [place] [address] [place] [address] Social History Date Tobacco Use [...] Telephone Encounter - Nuris Miramontes - 07/08/2012 3:18 PM CDT Referral made to Dr. Bailey for c/o rt foot pain and swelling. Pt notified of ap pt date and time. Referral completed. documented in this encounter Plan of Treatment Not on filedocumented as of this encounter Visit Diagnoses Not on filedocumented in this encounter
--- OUTSIDE RECORDS SUMMARY | 2020-03-24 14:34 | XMS REPORT | Encounter Summary ---
Author Author [facility] Organization [facility] Address Unknown Phone Unavailable Care Team Providers Care Sales Compensation Analyst Name Role Phone Shahram Mccallum MD PCP Unavailable Reason for Visit * Reason Comments Medication Review Encounter Details Care Team Description Date Type Department Shahram Mccallum MD NO ADDRESS ON FILE Medication Review 07/05/2012 Telephone [facility] Primar y Care [place] [address] [place] [address] Social History Date Tobacco Use [...] * Telephone Encounter - Nuris Miramontes - 07/05/2012 4:29 PM CDT Phone call with KarenGastrofy. D/c indomethacin and resume voltaren. documented in this encounter Plan of Treatment Not on filedocumented as of this encounter Visit Diagnoses Not on filedocumented in this encounter
--- OUTSIDE RECORDS SUMMARY | 2020-03-24 14:34 | XMS REPORT | Encounter Summary ---
Author Author [facility] Organization [facility] Address Unknown Phone Unavailable Care Team Providers Care Fermentation Scientist Name Role Phone Shahram Mccallum MD PCP Unavailable Reason for Visit * Reason Comments Leg Pain Rt Leg Pain & Swelling/Cons ult * Eval and Treat (Routine) Referred By Contact Referred To Contact Status Reason Specialty Diagnoses / Procedures Shahram Mccallum MD NO ADDRESS ON FILE Jose Bailey MD [address] [place] [address] Closed Orthopedic Diagnoses Surgery Foot pain, right Encounter Details Care Team Description Date Type Department Shahram Mccallum MD NO ADDRESS ON FILE Jose Bailey MD [address] [place] [address] Tendonitis of foot (Primary Dx) 07/14/2012 Initial consult [facility] Orthop edics [address] [phone] Social History Date Tobacco Use [...] Reading Time Taken Comments Vital Sign 122/68 07/14/2012 2:26 PM CDT Blood Pressure - - Pulse - - Temperature - - Respiratory Rate - - Oxygen Saturation - - Inhaled Oxygen Concentration 99.8 kg (220 lb) 07/14/2012 2:26 PM CDT Weight 167.6 cm (5' 6") 07/14/2012 2:26 PM CDT Height 35.51 07/14/2012 2:26 PM CDT Body Mass Index documented in this encounter Progress Notes * Jose Bailey MD - 07/14/2012 4:11 PM CDT Chief complaint-swelling and pain right foot History of present illness-the patient is a 61-year-old white male who has noted pain and swelling over the dorsum of the right foot for approximately one month. He lower leg was also swollen but not painful. He denied any injury or change in activity. He states the pain is only over the top of the foot. With increased activity he gets increased pain and swelling. The pain is present to touch as w ell as weightbearing. He did have an appendectomy done by Dr. Mayorga June 03 and thought that the symptoms started shortly after the surgery. He has had a couple sores on the bottom of the foot that have been non-painful. Prior to his foot p ain starting he had been on diclofenac [address] Mccallum switched h im over to Indocin for 10 days and he noticed no change while on the Indocin. He 's also had an x-ray of the foot as well as a bone scan. He continues to wear re gular shoes. With walking he notes when he comes up on the toes he has increased pain. Exam-he has full range of motion of the right hip without pain. He has full rang e of motion of the knee without pain. He has no swelling or instability the knee . He has no calf tenderness and negative Homans. He has multiple well-healed inc isions of the right lower extremity from previous bypass graft harvest and also superficial wounds. There is no redness or drainage from any of the wounds are i ncisions. He has no pain at the ankle with full range of motion and no instabili ty. He has good pulses on palpation. He has normal sensation in the foot and toe s. He has a surgical absent great toenail. He has pain over the extensor tendons to the lesser toes. There is mild swelling and pitting edema over the lateral a spect of the foot. He has no pain with motion of the toes. He has no pain at the MTP joints. X-rays of the right foot from 06/17 were reviewed and I see no bony abnormalities . Her is no evidence of fractures or stress fractures. A bone scan right foot wa s reviewed from 06/27 and this was negative. Impression-extensor tendinitis right foot Plan-I discussed the above with the patient. Since he is already on an anti-infl ammatory I would recommend that he continue on the Diclofenac. He had been tried on Indocin thinking this could be gout. I think he might benefit from a Cam Wal ker or walking boot to take the stress off the distal foot and extensor tendons. This does appear to be a tendinitis specimen with a negative bone scan and x-ra y. He was started with a Cam Walker. We'll have them use this for walking for 3 weeks. He does not need to wear it when he is not weightbearing. Return in 3 wee ks if he continues with problems. documented in this encounter Plan of Treatment Order Schedule Name Type Priority Associated Diag noses Ordered: 07/08/2012 AMB REFERRAL TO Outpatient Routine Foot pain, rig ht ORTHOPEDIC SURGERY Referral documented as of this encounter Visit Diagnoses Diagnosis Tendonitis of foot - Primary Tenosynovitis of foot and ankle documented in this encounter
--- OUTSIDE RECORDS SUMMARY | 2020-03-24 14:34 | XMS REPORT | Encounter Summary ---
Author Author [facility] Organization [facility] Address Unknown Phone Unavailable Care Team Providers Care Composite Engineer Name Role Phone Shahram Mccallum MD PCP Unavailable Encounter Details Care Team Description Date Type Department Shahram Mccallum MD NO ADDRESS ON FILE 07/04/[address] [facility] Primar y Care [place] [address] [place] [phone] Social History Date Tobacco Use Types Packs/Day [...]
--- OUTSIDE RECORDS SUMMARY | 2020-03-24 14:34 | XMS REPORT | Encounter Summary ---
Author Author [facility] Organization [facility] Address Unknown Phone Unavailable Care Team Providers Care Wheel Fitter Name Role Phone Shahram Mccallum MD PCP Unavailable Reason for Visit * Reason Comments Medication Refill Encounter Details Care Team Description Date Type Department Shahram Mccallum MD NO ADDRESS ON FILE 07/12/2012 Refill [facility] Primar y Care [address] [phone] Social History Date Tobacco Use Types Packs/Day [...]
--- OUTSIDE RECORDS SUMMARY | 2020-03-24 14:34 | XMS REPORT | Encounter Summary ---
Author Author [facility] Organization [facility] Address Unknown Phone Unavailable Care Team Providers Care Taximeter Repairer Name Role Phone Shahram Mccallum MD PCP Unavailable Reason for Visit * Reason Comments Medication Refill Encounter Details Care Team Description Date Type Department Walter Oconnor MD [address] [place] [address] 320/330 DONNA Chao [phone] 07/06/2012 Refill [facility] [address] [place] [phone] Social History Date Tobacco Use Types Packs/Day [...]
--- OUTSIDE RECORDS SUMMARY | 2020-03-24 14:34 | XMS REPORT | Encounter Summary ---
Author Author [facility] Organization [facility] Address Unknown Phone Unavailable Care Team Providers Care Fitness Teacher Name Role Phone Shahram Mccallum MD PCP Unavailable Reason for Visit * Reason Comments Asthma * Auth/Cert Referred By Contact Referred To Contact Status Reason Specialty Diagnoses / Procedures [facility] [address] [place] [address] Closed Home Health Encounter Details Care Team Description Date Type Department Karen Booker, RN GO LIVE-SN OASIS RECERTIFICATION 08/03/2012 [facility] [address] [place] [address] Social History Date Tobacco Use [...] Reading Time Taken Comments Vital Sign 122/78 08/03/2012 10:00 PM CDT Blood Pressure - - Pulse 36.4 C (97.6 F) 08/03/2012 10:00 PM CDT Temperature 20 08/03/2012 10:00 PM CDT Respiratory Rate - - Oxygen Saturation - - Inhaled Oxygen Concentration 99.3 kg (219 lb) 08/03/2012 10:00 PM CDT Weight 167.6 cm (5' 6") 08/03/2012 10:00 PM CDT Height 35.35 08/03/2012 10:00 PM CDT Body Mass Index documented in this encounter Plan of Treatment Not on filedocumented as of this encounter Visit Diagnoses Not on filedocumented in this encounter Home Health Visit - Care Plan Visit Type - GO LIVE-SN OASIS RECERT Discipline - Mcc Status Goals Interventions Problem [...] Continuum of Care Monitor/ed 08/03/2012 Disciplines: michelleate/giorgi Mcc force medical appointmen t compliance . [...] box set up by SN. Visit on 08/03/2012 by Karen Booker RN [[id number]] at 08/05/2012 9:52:55 AM Filled medication community planner with regularly scheduled meds for 7 days Medication box Problem: Completed Description: Medication Fill Medication community planner s weekly. Skilled assessment Problem: Completed [...]
--- OUTSIDE RECORDS SUMMARY | 2020-03-24 14:35 | XMS REPORT | Encounter Summary ---
Author Author [facility] Organization [facility] Address Unknown Phone Unavailable Care Team Providers Care Archaeologist Name Role Phone Shahram Mccallum MD PCP Unavailable Reason for Visit * Reason Comments Arm pain has pain off and on and joaquín es nitro and that relieves it. Encounter Details Care Team Description Date Type Department Rosalinda Bal Arm pain (has pain off and on and takes nitro and that relieves it.) 05/31/2012 Telephone [facility] Primar y Care [place] [address] [place] [phone] Social History Date Tobacco Use Types Packs/Day [...] * Telephone Encounter - Rosalinda Bal - 05/31/2012 1:[address]T Reported to Dr Mccallum. No new orders at this time. Continue to monitor. documented in this encounter Plan of Treatment Not on filedocumented as of this encounter Visit Diagnoses Not on filedocumented in this encounter
--- OUTSIDE RECORDS SUMMARY | 2020-03-24 14:35 | XMS REPORT | Encounter Summary ---
Author Author [facility] Organization [facility] Address Unknown Phone Unavailable Care Team Providers Care Electrical Estimator Name Role Phone Shahram Mccallum MD PCP Unavailable Reason for Referral * Outpatient Services (Routine) Referred By Contact Referred To Contact Status Reason Specialty Diagnoses / Procedures Shahram Mccallum MD NO ADDRESS ON FILE [facility] Nuclear Medicine [address] [place] [address] Closed Radiology Diagnoses Right foot pain P rocedures NM BONE SCAN LIMITED AREA Reason for Visit * Reason Comments Foot Swelling left foot x's 2 weeks Encounter Details Care Team Description Date Type Department Shahram Mccallum MD NO ADDRESS ON FILE Right foot pain (Primary Dx) 06/23/2012 Office Visit [facility] [address] [place] [address] Social History Date Tobacco Use [...] Signs Reading Time Taken Comments Vital Sign 106/60 06/23/2012 9:35 AM CDT Blood Pressure 68 06/23/2012 9:35 AM CDT Pulse 37 C (98.6 F) 06/23/2012 9:35 AM CDT Temperature - - Respiratory Rate - - Oxygen Saturation - - Inhaled Oxygen Concentration 99.6 kg (219 lb 8 oz) 06/23/2012 9:35 AM CDT Weight 167.6 cm (5' 6") 06/23/2012 9:35 AM CDT Height 35.43 06/23/2012 9:35 AM CDT Body Mass Index documented in this encounter Progress Notes * Shahram Mccallum MD - 06/23/2012 7:36 PM CDT Subjective: Oliverio Dalton is a 61 [...] without mention of obstruction or gangrene 553.1 Current Outpatient Prescriptions on File Prior to Visit Medication Sig Dispense Refill zolpidem (AMBIEN) 10 mg Oral tablet Take 1 Tab by mouth nightly as needed fo r Insomnia. 30 Tab 2 metoclopramide HCl (REGLAN) 5 mg Oral tablet Take 1 Tab by mouth 4 times conor ly before meals and at bedtime. 30 Tab 0 polyethylene glycol (MIRALAX) 17 gram Oral PwPk Take 1 Packet by mouth daily for 30 days. 30 Packet 3 pioglitazone (ACTOS) 30 mg Oral tablet Take [...] needed for Chest Pain. 25 Tab prn fenofibrate nanocrystallized (TRICOR) 145 mg Oral tablet Take 1 Tab by mouth daily with supper. 30 Tab 11 bethanechol (URECHOLINE) 25 mg Oral tablet Take 1 Tab by mouth 4 times daily . 120 Tab 11 tamsulosin (FLOMAX) 0.4 mg Oral capsule Take 1 Cap by mouth daily. 30 min. A fter supper 30 Cap 11 FLUoxetine (PROZAC) 20 mg Oral capsule Take 2 Caps by mouth daily. 60 Cap 11 rifampin (RIFADINE) 300 mg Oral capsule Take 1 Cap by mouth every 12 hours. 20 Cap 0 LORazepam (ATIVAN) 1 mg Oral tablet Take 1 Tab by mouth 2 times daily. 60 T ab 2 magnesium oxide 250 mg Oral Tab Take 1 Tab by mouth 3 times daily. ASPIRIN EC 81 mg Oral TbEC Take 81 mg by mouth daily. flaxseed Oil 1,000 mg Oral Cap Take 1000 mg by mouth 3 times daily. ZETIA 10 mg Oral Tab Take 10 mg by mouth daily at bedtime. MULTIVITAMIN PO Take 1 Tab by mouth [...] 4 hours as needed for P ain. DISCONTD: diclofenac sodium (VOLTAREN) 50 mg Oral TbEC Take 1 Tab by mouth 2 times daily. 60 Tab 11 DISCONTD: oxaprozin (DAYPRO) 600 mg Oral tablet Take 1 Tab by mouth daily. 30 Tab 11 See uric acid HPI: Mr. Dalton complains of the following (by systems): Arthritis symptoms: cont pain dorsum of R foot wihtout injury. increased pain w ith wt bearing. no systemic sxs. See previous note for earlier details. Review of Systems: ROS Denies all of the following: Headache Dizziness Chest pain Shortness of breath Bowel changes Bladder changes Pain in muscle or joints Exam/Objective: Normal Exam for Routine Visits: \\Blood pressure 106/60, pulse 68, temperature 98 .6 F (37 C), height 5' 6" (1.676 m), weight 219 lb 8 oz (99.565 kg). General appearance: , active, alert, cooperative, social, normally nourished, an d in no acute distress Extremities: symmetrical non edematous. R foot with dorsum swelling and cont ten derness base of toes. Cap refill good. Reviewed previous xrays. Assessment and Plan: ASSESSMENT: Encounter Diagnosis Name Primary? Right foot pain Yes PLAN: Orders Placed This Encounter NM BONE SCAN LIMITED AREA (Bone Scan,limited without flow) URIC ACID indomethacin SR (INDOCIN SR) 75 mg Oral capsule Appropriate medications prescribed (see detailed AVS). Appropriate patient instructions provided (see detailed AVS). Follow-up as I have indicated. Medications and options explained to include common side effects. Understanding of medications, course, diagnosis, and expectations were expressed by patient/g uardian. documented in this encounter Plan of Treatment Not on filedocumented as of this encounter Results * NM BONE SCAN LIMITED AREA (06/27/2012 1:24 PM CDT) Specimen Impressions Performed At IMPRESSION: Normal limited bone scan INTERFACE CAM [place] Narrative Performed At Limited bone scan INTERFACE SYSTEM HISTORY: Foot pain The patient was sent to 21.4 mCi of eliane hnetium 99m MDP intravenously. Films are obtained over both ankle and feet. There is no significant increased activity seen in near the rig ht or left foot. Procedure Note Interface, [facility] Incoming Radiology Results - 06/27/2012 2:08 PM CDT Limited bone scan HISTORY: Foot pain The patient was sent to 21.4 mCi of technetium 99m MDP intravenously. Films are obtained over both ankle and feet. There is no significant increased activity seen in near the right or left foot. IMPRESSION IMPRESSION: Normal limited bone scan Performing Organization Address [facility] one Number INTERFACE SYSTEM INTERFACE SYSTEM Refer to clinic/hospital department * URIC ACID (06/23/2012 10:48 AM CDT) URIC ACID 4.1Comment: GAB JUAN 3.5 - 7.2 mg/dl [facility] ACCT#[id number], ,,,, LABORATORY SERVICES - [place] FAY[place] Specimen Blood specimen (specimen) Performing Organization Address [facility] one Number [facility] LABORATORY SERVICES CLIA# [id number] [place] [address] [address] LABORATORY SERVICES CLIA# [id number] [place] [address] - [address] documented in this encounter Visit Diagnoses Diagnosis Right foot pain - Primary Pain in limb documented in this encounter
--- OUTSIDE RECORDS SUMMARY | 2020-03-24 14:35 | XMS REPORT | Encounter Summary ---
Author Author [facility] Organization [facility] Address Unknown Phone Unavailable Care Team Providers Care Rehabilitation Aide/Scheduler Name Role Phone Shahram Mccallum MD PCP Unavailable Encounter Details Care Team Description Date Type Department Shahram Mccallum MD NO ADDRESS ON FILE 06/27/2012 [facility] F ort Encounter [facility] [address] [place] [address] Social History Date Tobacco Use [...] mouth nightly as needed for Insomnia. 05/30/2012 06/29/2012 polyethylene glycol Take 1 Packet 30 Packet 3 (MIRALAX) 17 gram Oral by mouth PwPk daily for 30 days. 05/30/2012 08/24/2012 metoclopramide HCl Take 1 Tab [...] Name Priority Date/Time Associated Diag nosis NM BONE SCAN LIMITED AREA Routine 06/27/2012 Righ t foot pain 1:24 PM CDT documented in this encounter Results * NM BONE SCAN LIMITED AREA (06/27/2012 1:24 PM CDT) Specimen Impressions Performed At IMPRESSION: Normal limited bone scan INTERFACE CAM [place] Narrative Performed At Limited bone scan INTERFACE SYSTEM HISTORY: Foot pain The patient was sent to 21.4 mCi of leiane hnetium 99m MDP intravenously. Films are obtained over both ankle and feet. There is no significant increased activity seen in near the rig ht or left foot. Procedure Note Interface, [facility] Incoming Radiology Results - 06/27/2012 2:08 PM CDT Limited bone scan HISTORY: Foot pain The patient was sent to 21.4 mCi of technetium 99m MDP intravenously. Films are obtained over both ankle and feet. There is no significant increased activity seen in near the right or left foot. IMPRESSION IMPRESSION: Normal limited bone scan Performing Organization Address City/State/Zipcode Ph one Number INTERFACE SYSTEM INTERFACE SYSTEM Refer to clinic/hospital department documented in this encounter Visit Diagnoses Not on filedocumented in this encounter
--- OUTSIDE RECORDS SUMMARY | 2020-03-24 14:35 | XMS REPORT | Encounter Summary ---
Author Author [facility] Organization [facility] Address Unknown Phone Unavailable Care Team Providers Care Club Car Attendant Name Role Phone Shahram Mccallum MD PCP Unavailable Reason for Referral * Outpatient Services (Routine) Referred By Contact Referred To Contact Status Reason Specialty Diagnoses / Procedures Shahram Mccallum MD NO ADDRESS ON FILE [facility] Nuclear Medicine [address] [place] [phone] Closed Radiology Diagnoses Right foot pain P rocedures NM BONE SCAN LIMITED AREA Reason for Visit * Outpatient Services (Routine) Referred By Contact Referred To Contact Status Reason Specialty Diagnoses / Procedures Shahram Mccallum MD NO ADDRESS ON FILE [facility] Nuclear Medicine [address] [place] [phone] Closed Radiology Diagnoses Right foot pain P rocedures NM BONE SCAN LIMITED AREA Encounter Details Care Team Description Date Type Department Shahram Mccallum MD NO ADDRESS ON FILE 06/27/2012 [facility] F ort Encounter [facility] [address] [place] [phone] Social History Date Tobacco Use Types [...] At IMPRESSION: Normal limited bone scan INTERFACE SYSTE M Narrative Performed At Limited bone scan INTERFACE SYSTEM HISTORY: Foot pain The patient was sent to 21.4 mCi of eliane hnetium 99m MDP intravenously. Films are obtained over both ankle and feet. There is no significant increased activity seen in near the rig ht or left foot. Procedure Note Interface, [facility] Incoming Radiology Results - 06/27/2012 2:08 [...] encounter Visit Diagnoses Diagnosis Right foot pain Pain in limb documented in this encounter
--- OUTSIDE RECORDS SUMMARY | 2020-03-24 14:35 | XMS REPORT | Encounter Summary ---
Author Author [facility] Organization [facility] Address Unknown Phone Unavailable Care Team Providers Care Senior Tax Specialist Name Role Phone Shahram Mccallum MD PCP Unavailable Reason for Visit * Reason Comments Abdominal Pain Pt has come to ER with cc o f rt sided abd pain that started yeserday. PT reports some vomiting and diarrhea sinc e yesterday. * Auth/Cert Referred By Contact Referred To Contact Status Reason Specialty Diagnoses / Procedures [facility] Med Surg [address] [place] [address] Closed Inpatient Encounter Details Care Team Description Date Type Department Mary Moore MD NO ADDRESS ON FILE Status post laparoscopic appendectomy 05/28/2012 [facility] - Encounter [facility] 05/30/2012 [address] [place] [address] Social History Date Tobacco Use [...] Signs Reading Time Taken Comments Vital Sign 130/71 05/30/2012 7:13 AM CDT Blood Pressure 76 05/30/2012 7:13 AM CDT Pulse 36.9 C (98.5 F) 05/30/2012 7:13 AM CDT Temperature 20 05/30/2012 7:13 AM CDT Respiratory Rate 98% 05/30/2012 7:13 AM CDT Oxygen Saturation - - Inhaled Oxygen Concentration 104.8 kg (231 lb 2 oz) 05/29/2012 10:17 PM CDT Weight 167.6 cm (5' 6") 05/29/2012 10:17 PM CDT Height 37.3 05/29/2012 10:17 PM CDT Body Mass Index documented in this encounter Discharge Summaries * Mary Moore MD - 05/30/2012 9:29 AM CDT Physician Discharge Summary Patient: Oliverio Tinsley / 61 y.o. / male : 1950 Admit date: 05/28/2012 Indication for Admission: acute appendicitis. Admitting Diagnoses: No admission diagnoses for hospital encounter. Attending Physician: Mary Moore MD Consults: family medicine. Problem List: Patient Active Problem List Diagnoses Code DM [...] without mention of obstruction or gangrene 553.1 Treatments: antibiotics: levofloxacin (LEVAQUIN) and metronidazole and surgery: laparoscopic appendectomy. Significant Diagnostic Studies: radiology: CT scan: acute appendicitis. Hospital Course: Uncomplicated and uneventful. Discharge date: 05/30/2012 Discharge Exam: BP 130/71 | Pulse 76 | Temp(Src) 98.5 F (36.9 C) (Tympanic) | Resp 20 | Ht 5 ' 6" (1.676 m) | Wt 231 lb 2 oz (104.838 kg) | BMI 37.30 kg/m2 | SpO2 98% General appearance: alert, in no distress Abdomen: distended, soft. Incisions clean and dry. Discharge Condition: improving. Discharge Diagnoses: acute appendicitis status post laparoscopic appendectomy Disposition: home. MEDICATIONS Prior to admission: Prescriptions prior to admission Medication Sig Dispense Refill zolpidem (AMBIEN) 10 mg Oral tablet Take 1 Tab by mouth nightly as needed fo r Insomnia. 30 Tab 0 pioglitazone (ACTOS) 30 mg [...] Tab by mouth daily. 30 Tab 11 diclofenac sodium (VOLTAREN) 50 mg Oral TbEC Take 1 Tab by mouth 2 times conor ly. 60 Tab 11 loratadine (CLARITIN) 10 mg Oral [...] needed for Chest Pain. 25 Tab prn oxaprozin (DAYPRO) 600 mg Oral tablet Take 1 Tab by mouth daily. 30 Tab 11 fenofibrate nanocrystallized (TRICOR) 145 mg Oral [...] 4 hours as needed for P ain. Discharge medications and new prescriptions: Current Discharge Medication List START taking these medications Details oxyCODONE-acetaminophen (PERCOCET) 10-325 mg Oral Tab Take 0.5-1 Tabs by mouth e very 4 hours as needed for Pain or Pain, Severe. Qty: 40 Tab, Refills: 0 metoclopramide HCl (REGLAN) 5 mg Oral tablet Take 1 Tab by mouth 4 times daily b efore meals and at bedtime. Qty: 30 Tab, Refills: 0 polyethylene glycol (MIRALAX) 17 gram Oral PwPk Take 1 Packet by mouth daily for 30 days. Qty: 30 Packet, Refills: 3 levofloxacin (LEVAQUIN) 500 mg Oral tablet Take 1 Tab by mouth daily for 7 days. Qty: 7 Tab, Refills: 0 metroNIDAZOLE (FLAGYL) 250 mg Oral tablet Take 1 Tab by mouth 3 times daily for 7 days. Qty: 21 Tab, Refills: 0 CONTINUE these medications which have NOT CHANGED Details zolpidem (AMBIEN) 10 mg Oral tablet Take 1 Tab by mouth nightly as needed for In somnia. Qty: 30 Tab, Refills: 0 pioglitazone (ACTOS) 30 mg Oral tablet Take 1 Tab by mouth daily. Qty: 30 Tab, Refills: 11 metoprolol succinate ER 24 hour (TOPROL XL) 25 mg Oral tablet Take 1 Tab by mout h daily. Qty: 30 Tab, Refills: 11 ramipril (ALTACE) 10 mg Oral capsule Take 1 Cap by mouth daily. Qty: 30 Cap, Refills: 11 phenytoin (PHENYTEK) 200 mg Oral Cap Take 1 Cap by mouth 2 times daily. In the m orning and at bedtime. Qty: 60 Cap, Refills: 5 fluticasone (FLONASE) 50 mcg/spray Both Nostril SpSn Administer 2 Sprays in each nostril daily. Qty: 1 Bottle, Refills: 5 clopidogrel (PLAVIX) 75 mg Oral Tab Take 1 Tab by mouth daily. Qty: 30 Tab, Refills: 11 diclofenac sodium (VOLTAREN) 50 mg Oral TbEC Take 1 Tab by mouth 2 times daily. Qty: 60 Tab, Refills: 11 loratadine (CLARITIN) 10 mg Oral tablet Take 1 Tab by mouth daily. Qty: 30 Tab, Refills: 11 simvastatin (ZOCOR) 80 mg Oral tablet Take 40 mg by mouth Daily LATE. benzonatate (TESSALON) 200 mg Oral capsule Take 1 Cap by mouth every 4 hours as needed for Cough. Qty: 30 Cap, Refills: 0 esomeprazole (NEXIUM) 40 mg Oral CpDR Take 1 Cap by mouth daily before breakfast . Qty: 30 Cap, Refills: 11 insulin glargine (LANTUS) 100 unit/mL subCUT Soln 20 units at hs Qty: 10 mL, Refills: 11 isosorbide mononitrate SR 24 hour (IMDUR) 60 mg Oral tablet Take 1 Tab by mouth 2 times daily. Qty: 60 Tab, Refills: 11 nitroglycerin (NITROSTAT) 0.[address] 1 Tab under tongue every 5 minutes as needed for Chest Pain. Qty: 25 Tab, Refills: prn oxaprozin (DAYPRO) 600 mg Oral tablet Take 1 Tab by mouth daily. Qty: 30 Tab, Refills: 11 fenofibrate nanocrystallized (TRICOR) 145 mg Oral tablet Take 1 Tab by mouth conor ly with supper. Qty: 30 Tab, Refills: 11 bethanechol (URECHOLINE) 25 mg Oral tablet Take 1 Tab by mouth 4 times daily. Qty: 120 Tab, Refills: 11 tamsulosin (FLOMAX) 0.4 mg Oral capsule Take 1 Cap by mouth daily. 30 min. After supper Qty: 30 Cap, Refills: 11 FLUoxetine (PROZAC) 20 mg Oral capsule Take 2 Caps by mouth daily. Qty: 60 Cap, Refills: 11 rifampin (RIFADINE) 300 mg Oral capsule Take 1 Cap by mouth every 12 hours. Qty: 20 Cap, Refills: 0 LORazepam (ATIVAN) 1 mg Oral tablet Take 1 Tab by mouth 2 times daily. Qty: 60 Tab, Refills: 2 magnesium oxide 250 mg Oral Tab [...] every 4 hours as needed for Pain. Patient instructions: Activity: activity as tolerated. Diet: Diabetic Diet. Wound Care: As directed. Follow-up with Mary Moore MD in 7 day(s). Signed: Mary Moore MD 05/30/2012, 9:29 AM documented in this encounter Discharge Instructions * Patient Instructions* Willy Chaves [facility] - 05/31/2012 2:08 PM CDT Electronically signed by Sienna, Bong Aguilera Transcriptions Incoming at 2 2:08 PM CDT * Additional Instructions* Lashon Biggs, RN - 05/30/2012 Discharge to home. No Home care services ordered. Prescriptions printed and given to patient. 1. Call office, , for any questions. Office hours are 8 am to 5 pm Wednesday to , and 8 am to 12 noon on Wednesday. 2. Follow up with Dr. Moore in 7 days. Wednesday, June 06 at 2:30. Please keep mark eduled appointments prior to admission with Dr Mccallum. 3. Shower over incisions with soap and water daily. 4. Leave open to air day. Apply small amount of antibiotic ointment to incisio ns twice daily. 5. May take MOM 30 ml at bedtime for constipation. 6. Resume aspirin and Plavix on Wednesday. Appendectomy, Laparoscopic Care After Surgery Please read the instructions outlined below and refer to this sheet in the next few weeks. These discharge instructions provide you with general information on caring for yourself after you leave the hospital. Your caregiver may also give y ou specific instructions. While your treatment has been planned according to the most current medical practices available, unavoidable complications occasionally occur. If you have any problems or questions after discharge, please call your caregiver. Home care instructions after your surgery Once you are home an ice pack applied to the operative site may help with dis comfort and keep swelling down. After two to three days a heating pad may be francis lied for fifteen minutes, four times per day, as needed for comfort or as direct ed by your caregiver. Stop using the heat or ice if either one of those treatmen ts causes discomfort for you. Do not sleep with the heating pad. Change dressings as directed. Keep the wounds dry and clean. The wounds may be washed gently with soap and water. Gently blot or dab dry following cleansing without rubbing. Do not take b aths, use swimming pools or use hot tubs for ten days, or as instructed by your caregiver. You may use acetaminophen (Tylenol) or ibuprofen (Advil or Motrin) for pain and discomfort unless your surgeon has given medications which could interf ere with this. These are [id number] medications and may be given according to the package insert instructions. You may continue normal diet as directed. There should be no heavy lifting or contact sports for three weeks, or as dir ected. Seek medical care if: There is redness, swelling, or increasing pain in the wound or wounds. There is pus coming from the wounds. There is drainage from a wound lasting longer than one day. An unexplained oral temperature above 102 F (38.9 C) develops. You notice a foul smell coming from the wounds or dressing. A breaking open of the wound (edges not staying together) after sutures have been removed. You notice increasing pain in the shoulders (shoulder strap areas). You develop dizzy episodes or fainting while standing or develop shortness of breath. You develop persistent nausea or vomiting. seek immediate medical attention if: You develop a rash. You have difficulty breathing You develop any reaction or side effects to medications given. [facility] Patient Information 2006 [place]. MEDICATIONS Reminder-- Please discard any old medication lists and update records with all o f your medication providers and retail pharmacies. If you have CHF (Congestive Heart Failure) [...] not smoke and avoid second hand smoke. ................................................................................ ....................................................... THANK YOU FOR CHOOSING [facility] Our goal is to provide you with the highest level of care and service. Your fe edback about the positive experience and opportunities for us to better serve yo u is important to us. Patients will be randomly selected for either a phone or e-mail survey. * Phone surveys will be conducted by a non-[facility] employed attendant to patients of [facility] inpatient unit, surgery, emergency department, home health or convenient care. * E-mail surveys will be delivered to [facility] patients and outpatients. ................................................................................ ....................................................... IMPORTANT EMERGENCY PHONE NUMBERS Poison Control [place] Crisis Hotline- Domestic Violence Suicide Prevention Lifeline * Attachments The following attachments cannot be sent through Care Everywhere.* APPENDECTOMY: WHAT TO EXPECT AT HOME (UKRAINIAN) documented in this encounter Medications at Time of Discharge Start Date End Date Medication Sig Dispensed Refills 12/29/2007 BETIMOL 0.5 % OP Drop Administer 1 0 Drop in both eyes 2 times daily. 06/30/2011 08/10/2012 FLUoxetine (PROZAC) 20 mg Take 20 mg by 0 Oral capsule mouth daily. 05/30/2012 06/29/2012 polyethylene glycol Take 1 Packet 30 Packet 3 (MIRALAX) 17 gram Oral by mouth PwPk daily for 30 days. 05/30/2012 06/06/2012 levofloxacin (LEVAQUIN) Take 1 Tab by 7 Tab 0 500 mg Oral tablet mouth daily for 7 days. 05/30/2012 06/06/2012 metroNIDAZOLE (FLAGYL) Take 1 Tab by 21 Tab 0 250 mg Oral tablet mouth 3 times daily for 7 days. 05/30/2012 08/24/2012 metoclopramide HCl Take 1 Tab by 30 Tab 0 (REGLAN) 5 mg Oral tablet mouth 4 times daily before meals and at bedtime. 05/03/2012 05/31/2012 zolpidem (AMBIEN) 10 mg Take 1 Tab by 30 Tab 0 Oral tablet mouth nightly as needed for [...] Tab 11 mg Oral Tab mouth daily. 03/01/2012 06/23/2012 diclofenac sodium Take 1 Tab by 60 Tab 11 (VOLTAREN) 50 mg Oral mouth 2 times TbEC daily. 02/23/2012 02/28/2013 loratadine (CLARITIN) 10 Take [...] minutes as needed for Chest Pain. 08/04/2011 06/23/2012 oxaprozin (DAYPRO) 600 mg Take 1 Tab by 30 Tab 11 Oral tablet mouth daily. 08/04/2011 08/03/2012 fenofibrate Take 1 Tab by [...] as of this encounter Progress Notes * Lashon Biggs RN - 05/30/2012 11:04 AM CDT Oliverio Tinsley will be discharged via wheelchair to home. Oliverio Tinsley is accompanied by family member(s) and will be transported via private vehicle. * Shahram Mccallum MD - 05/30/2012 8:34 AM CDT Admit Date: 05/28/2012 Subjective: Principal Problem: *Status post laparoscopic appendectomy Active Problems: Acute appendicitis Umbilical hernia without mention of obstruction or gangrene Patient has no complaint of acute changes in medical condition. is feeling bett er post op and is anticipating home today. Objective: Patient Vitals for the past 8 hrs: BP Temp Temp src Pulse Resp SpO2 05/30/12 0713 130/71 mmHg 98.5 F (36.9 C) Tympanic 76 20 98 % 05/30/12 0502 130/70 mmHg 98.9 F (37.2 C) Tympanic 87 22 96 % 05/30/12 0306 123/89 mmHg - - 84 22 97 % 05/30/12 0301 131/70 mmHg 99.2 F (37.3 C) Tympanic 83 26 97 % Intake/Output Summary (Last 24 hours) at 05/30/12 0835 Last data filed at 05/30/12 0500 Gross per 24 hour Intake 1040 ml Output 1830 ml Net -790 ml Results for orders placed during the hospital encounter of 05/28/12 (from the ma st 24 hour(s)) POC GLUCOSE Component Value Range POC GLUCOSE 194 (*) 70 - 110 (mg/dl) POC GLUCOSE GRAPH VALUE 194 (*) 70 - 110 (mg/dl) POC GLUCOSE Component Value Range POC GLUCOSE 160 (*) 70 - 110 (mg/dl) POC GLUCOSE GRAPH VALUE 160 (*) 70 - 110 (mg/dl) POC GLUCOSE Component Value Range POC GLUCOSE 180 (*) 70 - 110 (mg/dl) POC GLUCOSE GRAPH VALUE 180 (*) 70 - 110 (mg/dl) BP 130/71 | Pulse 76 | Temp(Src) 98.5 F (36.9 C) (Tympanic) | Resp 20 | Ht 5 ' 6" (1.676 m) | Wt 231 lb 2 oz (104.838 kg) | BMI 37.30 kg/m2 | SpO2 98% General appearance: alert Lungs: clear to auscultation bilaterally, normal respiratory effort Heart: normal rate, regular rhythm, normal S1, S2, no murmurs, rubs, clicks or g allops Xrays: reviewed Assessment: Principal Problem: *Status post laparoscopic appendectomy Active Problems: Acute appendicitis Umbilical hernia without mention of obstruction or gangrene Plan: See orders. Medically stable and agree with current regimen. If dismissed advised to resume pre- hospital regimen and f/u per prior sched appts with me. * Carmella López RN - 05/30/2012 3:06 AM CDT 0300: patient reporting dull precordial chest pressure with radiation to jaw and shoulder. No associated shortness of breath. Telemetry showing normal sinus rhy thm. 0.4 mg nitroglycerin sublingual given at this time. 0306: patient reports pressure has completely resolved. Will continue to monitor patient. * Mary Moore MD - 05/29/2012 11:53 AM CDT Admit Date: 05/28/2012 Hospital day: 2 Post-operative day: 1 Subjective: Patient has finally voided. Minimal discomfort. Passing flatus. Current Facility-Administered Medications Medication Dose Route Frequency Provider Last Rate Last Dose furosemide (LASIX) injection 20 mg 20 mg IV ONCE Mary Moore MD polyethylene glycol (MIRALAX) packet 17 Gram 17 Gram Oral Daily Delores Moore MD DISCONTD: sodium chloride 0.9 % flush injection 3 mL 3 mL IV BID Artur Moore MD metroNIDAZOLE (FLAGYL) IVPB 500 mg 500 mg IV ONCE Leisure, Sybil Lara APRN 500 mg at 05/28/12 1155 phenytoin sodium extended release (DILANTIN) capsule 200 mg 200 mg Oral BID Mary Moore MD 200 mg at 05/29/12 0850 pioglitazone (ACTOS) tablet 30 mg 30 mg Oral Daily Mary Moore MD 30 mg at 05/29/12 0850 simvastatin (ZOCOR) tablet 40 mg 40 mg Oral Daily LATE Mary Moore MD 40 mg at 05/28/12 1605 ramipril (ALTACE) capsule 10 mg 10 mg Oral Daily Mary Moore MD 10 mg at 05/29/12 0849 rifampin (RIFADINE) capsule 300 mg 300 mg Oral q 12 hour (BID) Daysi Moore MD 300 mg at 05/29/12 0910 benzonatate (TESSALON) capsule 200 mg 200 mg Oral q 4 hour PRN Daysi Moore MD tamsulosin (FLOMAX) capsule 0.4 mg 0.4 mg Oral Daily Mary Moore MD 0 .4 mg at 05/28/12 1711 metoprolol succinate ER 24 hour (TOPROL-XL) tablet 25 mg 25 mg Oral Daily H Mary worthy MD 25 mg at 05/29/12 0845 insulin glargine (LANTUS) 100 unit/mL injection 20 Units 20 Units subCUT Da maribel BEDTIME Mary Moore MD 20 Units at 05/28/122000 fenofibrate nanocrystallized (TRICOR) tablet 145 mg 145 mg Oral Daily SUPPE R Mary Moore MD 145 mg at 05/28/12 1611 ezetimibe (ZETIA) tablet 10 mg 10 mg Oral Daily BEDTIME Mary Moore MD 10 mg at 05/28/122001 magnesium oxide (MAG-OX) tablet 400 mg 400 mg Oral TID Mary Moore MD 400 mg at 05/29/12 0847 timolol (TIMOPTIC) 0.5 % ophthalmic solution 1 Drop 1 Drop Both Eyes BID Ho Mary renee MD 1 Drop at 05/29/12 0851 diclofenac sodium (VOLTAREN) tablet 50 mg 50 mg Oral BID Mary Moore MD 50 mg at 05/29/12 0757 bethanechol (URECHOLINE) tablet 25 mg 25 mg Oral ACHS QID Mary Moore M D 25 mg at 05/29/12 1132 pantoprazole (PROTONIX) tablet 40 mg 40 mg Oral AC Daily Breakfast Tiesha Moore MD 40 mg at 05/29/12 0647 zolpidem (AMBIEN) tablet 10 mg 10 mg Oral HS PRN Mary Moore MD FLUoxetine (PROZAC) capsule 40 mg 40 mg Oral Daily Mary Moore MD 40 mg at 05/29/12 0846 isosorbide mononitrate SR 24 hour (IMDUR) tablet 60 mg 60 mg Oral BID Mary Moore MD 60 mg at 05/29/12 0847 nitroglycerin (NITROSTAT) tablet 0.4 mg 0.4 mg Sublingual q 5 min PRN Mary Moore MD 0.4 mg at 05/28/12 1357 diphenhydrAMINE (BENADRYL) injection 25 mg 25 mg IV Post-Proc Once PRN Walter Kebede, K9 HANDLER 25 mg at 05/28/12 1319 ondansetron (ZOFRAN) 4 mg/2 mL injection 4 mg 4 mg IV Post-Proc Once PRN Keith galoWalter adams, K9 HANDLER 4 mg at 05/28/12 1255 sodium chloride 0.9 % flush injection 3 mL 3 mL IV BID Mary Moore MD 3 mL at 05/29/12 0934 lactated ringers solution IV Continuous Mary Moore MD naloxone (NARCAN) 0.4 mg/mL injection 0.1 mg 0.1 mg IV See Admin Notes Mary Reilly MD ondansetron (ZOFRAN) 4 mg/2 mL injection 4-8 mg 4-8 mg IV q 6 hour PRN Mary Reilly MD ibuprofen (MOTRIN) tablet 800 mg 800 mg Oral q 8 hour PRN Mary Moore M D 800 mg at 05/28/12 1823 magnesium hydroxide (MILK OF MAGNESIA) oral suspension 30 mL 30 mL Oral Conor ly PRN Mary Moore MD oxyCODONE-acetaminophen (PERCOCET) 5-325 mg per tablet 1 Tab 1 Tab Oral q 4 hour PRN Mary Moore MD oxyCODONE-acetaminophen (PERCOCET) 10-325 mg per tablet 1 Tab 1 Tab Oral q 4 hour PRN Mary Moore MD 1 Tab at 05/29/12 0752 ibuprofen (MOTRIN) tablet 600 mg 600 mg Oral q 8 hour PRN Mary Moore M D levofloxacin (LEVAQUIN) 500 mg/100 mL in D5W IVPB 500 mg 500 mg IV ONCE Hor Mary vick MD 500 mg at 05/29/12 0647 fentaNYL PF (SUBLIMAZE) 50 mcg/mL injection 50 mcg 50 mcg IV q 1 hour PRN H Mary worthy MD 50 mcg at 05/29/12 0700 fentaNYL PF (SUBLIMAZE) 50 mcg/mL injection 75 mcg 75 mcg IV q 1 hour PRN H Mary worthy MD 75 mcg at 05/29/12 0915 fentaNYL PF (SUBLIMAZE) 50 mcg/mL injection 25 mcg 25 mcg IV q 1 hour PRN H Mary worthy MD albuterol (PROVENTIL,VENTOLIN) inhalation solution 2.5 mg 2.5 mg Inhalation Resp q 6 h PRN Mary Moore MD metoclopramide HCl (REGLAN) injection 5 mg 5 mg IV q 6 hour Mary Moore MD 5 mg at 05/29/12 0847 metroNIDAZOLE (FLAGYL) IVPB 500 mg 500 mg IV q 8 hour Mary Moore MD 500 mg at 05/29/12 0908 sodium chloride 0.9 % flush injection 3 mL 3 mL IV See Admin Notes Tiesha Moore MD dextrose 50% (D50) syringe 12.5 Gram 12.5 Gram IV See Admin Notes Claus Couch MD glucagon human recombinant (GLUCAGEN) 1 mg injection 1 mg 1 mg IM See Admin Notes Claus Couch MD insulin lispro (HUMALOG) 100 unit/mL injection subCUT ACHS QID Moises Couch MD 4 Units at 05/29/12 0755 DISCONTD: sodium chloride 0.9 % flush injection 3 mL 3 mL IV BID Palak Henry, MAINTENANCE TECH DISCONTD: famotidine PF (PEPCID) 20 mg/2 mL injection 20 mg 20 mg IV BID Sybil Matt MAINTENANCE TECH 20 mg at 05/28/12 0902 DISCONTD: oxaprozin (DAYPRO) tablet 600 mg 600 mg Oral Daily Mary Moore MD DISCONTD: fentaNYL PF (SUBLIMAZE) 50 mcg/mL injection 25 mcg 25 mcg IV Post -Proc q 3 min PRN Walter Beaver CRNA DISCONTD: sodium chloride 0.9 % infusion IV Continuous Mary Moore MD 30 mL/hr at 05/28/12 1713 Objective: Patient Vitals for the past 8 hrs: BP Temp Temp src Pulse Resp SpO2 05/29/12 1128 104/53 mmHg 96.9 F (36.1 C) Tympanic 56 21 95 % 05/29/12 0727 111/62 mmHg 97.6 F (36.4 C) Tympanic 67 20 96 % 05/29/12 0412 108/60 mmHg 98.1 F (36.7 C) Tympanic 77 20 98 % Intake/Output Summary (Last 24 hours) at 05/29/12 1153 Last data filed at 05/29/12 1100 Gross per 24 hour Intake 2460 ml Output 830 ml Net 1630 ml BP 104/53 | Pulse 56 | Temp(Src) 96.9 F (36.1 C) (Tympanic) | Resp 21 | Ht 5 ' 6" (1.676 m) | Wt 223 lb (101.152 kg) | BMI 35.99 kg/m2 | SpO2 95% General appearance: alert, in no distress Abdomen: mildly distended, soft. Incisions clean and dry with umbilicus showing nonblanching erythema. Results for orders placed during the hospital encounter of 05/28/12 (from the ma st 48 hour(s)) CBC WITH MANUAL DIFFERENTIAL Collection Time 05/28/12 9:08 AM Component Value Range BANDS 10 0 - 22 (%Manual) NEUTROPHILS, SEG 73 (*) 30 - 68 (%Manual) LYMPHOCYTES 7 (*) 14 - 50 (%Manual) MONOCYTE 7 0 - 11 (%Manual) ATYPICAL LYMPHOCYTE 3 0 - 6 (%Manual) PLATELET EST. Normal WBC ESTIMATE Increased WBC 14.69 (*) 3.0 - 10.4 (x10E3) RBC 4.84 4.15 - 5.75 (x10E6) HEMOGLOBIN 13.9 13.8 - 17.4 (g/dL) HEMATOCRIT 41.6 38.6 - 49.4 (%) MCV 86.0 79 - 100 (fL) MCH 28.7 28 - 34 (pg) MCHC 33.4 31 - 35 (g/dL) RDW 13.4 12.1 - 14.1 (%) PLATELETS 254 148 - 408 (x10E3) MPV 7.8 7.4 - 10.6 (fL) NEUTROPHILS 82.9 (*) 43 - 73 (%) LYMPHOCYTES 8.1 (*) 19 - 47 (%) MONOCYTES 8.3 3 - 9 (%) EOSINOPHILS 0.5 0 - 6 (%) BASOPHILS 0.2 0 - 1.2 (%) NEUTROPHIL ABSOLUTE 12.18 (*) 1.3 - 7.6 (x10E3) LYMPHOCYTE ABSOLUTE 1.18 0.6 - 4.9 (x10E3) MONOCYTE ABSOLUTE 1.21 (*) 0.1 - 0.9 (x10E3) EOSINOPHIL ABSOLUTE 0.08 0.0 - 0.2 (x10E3) BASOPHILS ABSOLUTE 0.03 0 - 0.1 (x10E3) COMPREHENSIVE METABOLIC PANEL Collection Time 05/28/12 9:08 AM Component Value Range GLUCOSE 185 (*) 70 - 100 (mg/dl) BUN 12.0 7 - 20 (mg/dl) CREATININE 1.06 0.8 - 1.3 (mg/dl) BUN/CREAT RATIO 11.3 10 - 20 GFR 75 >60 (ml/min) SODIUM 136 134 - 145 (mmol/L) POTASSIUM 3.9 3.3 - 4.8 (mmol/L) CHLORIDE 102 98 - 107 (mmol/L) CO2 28.2 22 - 31 (mmol/L) ANION GAP 10 4 - 20 CALCIUM 9.1 8.5 - 10.1 (mg/dl) ALBUMIN 4.0 3.4 - 5.0 (g/dl) TOTAL PROTEIN 7.6 6.4 - 8.2 (g/dl) GLOBULIN (CALC) 3.6 ALBUMIN/GLOBULIN RATIO 1.1 BILIRUBIN TOTAL 0.8 <1.1 (mg/dl) ALKALINE PHOSPHATASE 77 50 - 136 (IU/L) AST 19 10 - 40 (IU/L) ALT 37 25 - 70 (IU/L) LIPASE Collection Time 05/28/12 9:08 AM Component Value Range LIPASE 103 84 - 319 (U/L) MYOGLOBIN Collection Time 05/28/12 9:08 AM Component Value Range MYOGLOBIN, PLASMA 31 16 - 97 (ng/ml) Narrative: CARDIAC GRABIEL-0HR GRABIEL-0 HR from 720:[id number]. CARDIAC TROP-0HR TROP-0 HR from [id number]. TROPONIN Collection Time 05/28/12 9:08 AM Component Value Range TROPONIN I 0.05 0 - 0.4 (ng/ml) Narrative: CARDIAC GRABIEL-0HR GRABIEL-0 HR from 720:[id number]. CARDIAC TROP-0HR TROP-0 HR from 4S. MYOGLOBIN Collection Time 05/28/12 12:55 PM Component Value Range MYOGLOBIN, PLASMA 51 16 - 97 (ng/ml) Narrative: CARDIAC GRABIEL-3HR GRABIEL-3 HR from 720:[id number]. CARDIAC TROP-3HR TROP-3 HR from 720:[id number]. CARDIAC Interim: CAR3 from 4S. TROPONIN Collection Time 05/28/12 12:55 PM Component Value Range TROPONIN I 0.08 0 - 0.4 (ng/ml) Narrative: CARDIAC GRABIEL-3HR GRABIEL-3 HR from 720:[id number]. CARDIAC TROP-3HR TROP-3 HR from 720:[id number]. CARDIAC Interim: CAR3 from 720:[id number]. CARDIAC INTERPRETATION (3 HR) Collection Time 05/28/12 12:55 PM Component Value Range INTERPRETATION Test not performed Narrative: CARDIAC GRABIEL-3HR GRABIEL-3 HR from 720:[id number]. CARDIAC TROP-3HR TROP-3 HR from 720:[id number]. CARDIAC Interim: CAR3 from . TROPONIN Collection Time 05/28/12 3:45 PM Component Value Range TROPONIN I 0.08 0 - 0.4 (ng/ml) Narrative: CARDIAC TROP-6HR TROP-6 HR from 720:[id number]. CARDIAC Interim: CAR6 from [id number]. CARDIAC INTERPRETATION (6 HR) Collection Time 05/28/12 3:45 PM Component Value Range INTERPRETATION Test not performed Narrative: CARDIAC TROP-6HR TROP-6 HR from 720:[id number]. CARDIAC Interim: CAR6 from 720:[id number]. POC GLUCOSE Collection Time 05/28/12 4:56 PM Component Value Range POC GLUCOSE 168 (*) 70 - 110 (mg/dl) POC GLUCOSE GRAPH VALUE 168 (*) 70 - 110 (mg/dl) POC GLUCOSE Collection Time 05/28/12 7:57 PM Component Value Range POC GLUCOSE 140 (*) 70 - 110 (mg/dl) POC GLUCOSE GRAPH VALUE 140 (*) 70 - 110 (mg/dl) CARDIAC ENZYMES Collection Time 05/28/12 9:50 PM Narrative: CARDIAC TROP-12HR TROP-12 HR from 720:[id number]. CARDIAC Final: FINAL from 720:. TROPONIN Collection Time 05/28/12 9:50 PM Component Value Range TROPONIN I 0.27 0 - 0.4 (ng/ml) Narrative: CARDIAC TROP-12HR TROP-12 HR from 21:[id number]. CARDIAC Final: FINAL from 720:[id number]. POC GLUCOSE Collection Time 05/28/12 11:29 PM Component Value Range POC GLUCOSE 157 (*) 70 - 110 (mg/dl) POC GLUCOSE GRAPH VALUE 157 (*) 70 - 110 (mg/dl) TROPONIN Collection Time 05/29/12 5:55 AM Component Value Range TROPONIN I 0.20 0 - 0.4 (ng/ml) MYOGLOBIN Collection Time 05/29/12 5:55 AM Component Value Range MYOGLOBIN, PLASMA 36 16 - 97 (ng/ml) POC GLUCOSE Collection Time 05/29/12 6:43 AM Component Value Range POC GLUCOSE 152 (*) 70 - 110 (mg/dl) POC GLUCOSE GRAPH VALUE 152 (*) 70 - 110 (mg/dl) Assessment: Status post lap appendectomy, stable. Will try to mobilize third space fluid wi th small dose of Lasix. Plan: See orders. Advance diet. Increase activity. * Claus Couch MD - 05/29/2012 10:17 AM CDT Admit Date: 05/28/2012 8:30 AM Subjective: Oliverio Tinsley is a 61 y.o. male admitted for Principal Problem: *Status post laparoscopic appendectomy Active Problems: Acute appendicitis Umbilical hernia without mention of obstruction or gangrene no new complaints. Overall symptoms are improving. Objective: Patient Vitals for the past 8 hrs: BP Temp Temp src Pulse Resp SpO2 05/29/12 0727 111/62 mmHg 97.6 F (36.4 C) Tympanic 67 20 96 % 05/29/12 0412 108/60 mmHg 98.1 F (36.7 C) Tympanic 77 20 98 % Intake/Output Summary (Last 24 hours) at 05/29/12 1017 Last data filed at 05/29/12 0900 Gross per 24 hour Intake 2460 ml Output 800 ml Net 1660 ml BP 111/62 | Pulse 67 | Temp(Src) 97.6 F (36.4 C) (Tympanic) | Resp 20 | Ht 5 ' 6" (1.676 m) | Wt 223 lb (101.152 kg) | BMI 35.99 kg/m2 | SpO2 96% General appearance: alert, in no distress Head: atraumatic, Normocephalic, without obvious abnormality Lungs: clear to auscultation bilaterally, normal respiratory [...] reviewed and time marked in EPIC Assessment: Principal Problem: *Status post laparoscopic appendectomy Active Problems: Acute appendicitis Umbilical hernia without mention of obstruction or gangrene Plan: Continue current treatment plan and see orders for any additional changes. Patient overall doing better however chest pain has improved troponins were norm al this morning in addition urine output is still low will continue to monitor t he patient's progress * Carmella López RN - 05/29/2012 4:[address] Couch paged regarding patient's inability to void, no orders received. Berry l continue to monitor patient. * Carmella López RN - 05/29/2012 3:34 AM CDT Patient has not voided since surgery yesterday. Patient states he has no urge to void, bladder scanned with 95 mls noted. Box Packer notified, advised to contin ue to monitor patient. * Carmella López RN - 05/29/2012 2:37 AM CDT Troponins noted to be trending upward, 0.05, 0.08,0.08,0.27. Patient has no comp laints at this time. Dr. Couch paged, order received for one time troponin/grabiel globin in the morning. Will continue to monitor patient. * Jo Leger RN - 05/28/2012 2:10 PM CDT Patient placed in bed at 1330 to room 118 bed two. He is awake and alert. O2 L/n c applied cause then he states he is having left shoulder pain and axilla pain.. . He says "I am scared." BP at chest pain time is 142/70 And Nitro one given s ublinguil 0.4mg. After 5 min he said that the pain went from 10 to 8 and another Nitro 0.4mg S is given at 1357. He said he is much better now and is talking to company. Also Fentenyl 50mcg was given at 1351 IV for the chest discomfort. He is much better now at 1415. He is visiting with [employer] with no left axilla pain. * Pauline Andrews RN - 05/28/2012 1:08 PM CDT Correction, IV fluids hanging are NS. documented in this encounter H&P Notes * Mary Moore MD - 05/28/2012 10:50 AM CDT Subjective: Oliverio Tinsley is an 61 y.o. male who presents for evaluation of acute appendi citis. The patient developed acute abdominal pain, nausea, vomiting and diarrhea . Initial presentation in ED was not clear, so patient underwent CT scan for fu rther evaluation. CT confirmed acute appendicitis. Past Medical History Diagnosis Date Wrist sprain [...] 02/01/2009 COLONOSCOPY performed by MARY MOORE at [facility] OR hernia repair 1988 And age 4 Hx lap cholecystectomy 05/17/07 Hx coronary artery bypass graft Hx heart catheterization 04/10 With angioplasty, 2 stents Family History Problem Relation Age of Onset Other Mother Blood pressure Diabetes Mother Respiratory Disease Mother Asthma Mother Other Sister Blood pressure Diabetes Sister Respiratory Disease Sister Heart Disease Sister Asthma Sister Lung Cancer Brother Seizures Brother Other Father "brain anuerysm" Healthy Daughter Heart Disease Son Healthy Daughter Healthy Daughter Healthy Son Healthy Son Healthy Son Healthy Son Current Facility-Administered Medications Medication Dose Route Frequency Provider Last Rate Last Dose sodium chloride 0.9 % flush injection 3 mL 3 mL IV BID LeisureSybil APRN famotidine PF (PEPCID) 20 mg/2 mL injection 20 mg 20 mg IV BID Leisure, Ammy Lara MAINTENANCE TECH 20 mg at 05/28/12901 ondansetron (ZOFRAN) 4 mg/2 mL injection 4 mg 4 mg IV ONCE Leisure, Sybil Lara MAINTENANCE TECH 4 mg at 05/28/12901 GI cocktail oral suspension 30 mL 30 mL Oral ONCE Leisure, Sybil Lara, MAINTENANCE TECH 30 mL at 05/28/12901 fentaNYL PF (SUBLIMAZE) 50 mcg/mL injection 50 mcg 50 mcg IV ONCE Leisure, Sybil Lara, MAINTENANCE TECH 50 mcg at 05/28/12 1006 levofloxacin (LEVAQUIN) 750 mg/150 mL in D5W IVPB 750 mg 750 mg IV ONCE Lei sure, Sybil Lara, MAINTENANCE TECH 750 mg at 05/28/12 1012 metroNIDAZOLE (FLAGYL) IVPB 500 mg 500 mg IV ONCE Leisure, Sybil Lara MAINTENANCE TECH fentaNYL PF (SUBLIMAZE) 50 mcg/mL injection 50 mcg 50 mcg IV ONCE Leisure, Sybil Lara, MAINTENANCE TECH Current Outpatient Prescriptions Medication Sig Dispense Refill zolpidem (AMBIEN) 10 mg Oral tablet Take 1 Tab by mouth nightly as needed fo r Insomnia. 30 Tab 0 pioglitazone (ACTOS) 30 mg [...] Tab by mouth daily. 30 Tab 11 diclofenac sodium (VOLTAREN) 50 mg Oral TbEC Take 1 Tab by mouth 2 times conor ly. 60 Tab 11 loratadine (CLARITIN) 10 mg Oral [...] needed for Chest Pain. 25 Tab prn oxaprozin (DAYPRO) 600 mg Oral tablet Take 1 Tab by mouth daily. 30 Tab 11 fenofibrate nanocrystallized (TRICOR) 145 mg Oral [...] 4 hours as needed for P ain. Allergies Allergen Reactions Codeine Unknown Doxycycline Rash [...] Special: Prescription Drugs Sexually Active: Not Currently Other Topics Concern Not on file Social History Narrative No narrative on file Review of Systems Pertinent items are noted in HPI. Objective: BP 150/83 | Pulse 96 | Temp(Src) 99.1 F (37.3 C) (Tympanic) | Resp 18 | Ht 5' 6" (1.676 m) | Wt 223 lb (101.152 kg) | BMI 35.99 kg/m2 | SpO2 95% General: alert, in no distress Skin: Normal. Eyes: negative Mouth: MMM no lesions Lymph Nodes: Cervical, supraclavicular, and axillary nodes normal. Lungs: normal respiratory effort Heart: regular rate and rhythm Abdomen: Obese, mildly distended, periumbilical tenderness. Umbilical hernia. CVA: absent Genitourinary: Penile implant Extremities: extremities normal, atraumatic, no cyanosis or edema Neurologic: negative Psychiatric: non focal Results for orders placed during the hospital encounter of 05/28/12 (from the ma st 336 hour(s)) CBC WITH MANUAL DIFFERENTIAL Collection Time 05/28/12 9:08 AM Component Value Range BANDS 10 0 - 22 (%Manual) NEUTROPHILS, SEG 73 (*) 30 - 68 (%Manual) LYMPHOCYTES 7 (*) 14 - 50 (%Manual) MONOCYTE 7 0 - 11 (%Manual) ATYPICAL LYMPHOCYTE 3 0 - 6 (%Manual) PLATELET EST. Normal WBC ESTIMATE Increased WBC 14.69 (*) 3.0 - 10.4 (x10E3) RBC 4.84 4.15 - 5.75 (x10E6) HEMOGLOBIN 13.9 13.8 - 17.4 (g/dL) HEMATOCRIT 41.6 38.6 - 49.4 (%) MCV 86.0 79 - 100 (fL) MCH 28.7 28 - 34 (pg) MCHC 33.4 31 - 35 (g/dL) RDW 13.4 12.1 - 14.1 (%) PLATELETS 254 148 - 408 (x10E3) MPV 7.8 7.4 - 10.6 (fL) NEUTROPHILS 82.9 (*) 43 - 73 (%) LYMPHOCYTES 8.1 (*) 19 - 47 (%) MONOCYTES 8.3 3 - 9 (%) EOSINOPHILS 0.5 0 - 6 (%) BASOPHILS 0.2 0 - 1.2 (%) NEUTROPHIL ABSOLUTE 12.18 (*) 1.3 - 7.6 (x10E3) LYMPHOCYTE ABSOLUTE 1.18 0.6 - 4.9 (x10E3) MONOCYTE ABSOLUTE 1.21 (*) 0.1 - 0.9 (x10E3) EOSINOPHIL ABSOLUTE 0.08 0.0 - 0.2 (x10E3) BASOPHILS ABSOLUTE 0.03 0 - 0.1 (x10E3) COMPREHENSIVE METABOLIC PANEL Collection Time 05/28/12 9:08 AM Component Value Range GLUCOSE 185 (*) 70 - 100 (mg/dl) BUN 12.0 7 - 20 (mg/dl) CREATININE 1.06 0.8 - 1.3 (mg/dl) BUN/CREAT RATIO 11.3 10 - 20 GFR 75 >60 (ml/min) SODIUM 136 134 - 145 (mmol/L) POTASSIUM 3.9 3.3 - 4.8 (mmol/L) CHLORIDE 102 98 - 107 (mmol/L) CO2 28.2 22 - 31 (mmol/L) ANION GAP 10 4 - 20 CALCIUM 9.1 8.5 - 10.1 (mg/dl) ALBUMIN 4.0 3.4 - 5.0 (g/dl) TOTAL PROTEIN 7.6 6.4 - 8.2 (g/dl) GLOBULIN (CALC) 3.6 ALBUMIN/GLOBULIN RATIO 1.1 BILIRUBIN TOTAL 0.8 <1.1 (mg/dl) ALKALINE PHOSPHATASE 77 50 - 136 (IU/L) AST 19 10 - 40 (IU/L) ALT 37 25 - 70 (IU/L) LIPASE Collection Time 05/28/12 9:08 AM Component Value Range LIPASE 103 84 - 319 (U/L) MYOGLOBIN Collection Time 05/28/12 9:08 AM Component Value Range MYOGLOBIN, PLASMA 31 16 - 97 (ng/ml) Narrative: CARDIAC GRABIEL-0HR GRABIEL-0 HR from [id number]. CARDIAC TROP-0HR TROP-0 HR from [id number]. TROPONIN Collection Time 05/28/12 9:08 AM Component Value Range TROPONIN I 0.05 0 - 0.4 (ng/ml) Narrative: CARDIAC GRABIEL-0HR GRABIEL-0 HR from 720:[id number]. CARDIAC TROP-0HR TROP-0 HR from 720:[id number]. Results for orders placed during the hospital encounter of 05/14/12 (from the pa st 336 hour(s)) XR CHEST PA OR AP Collection Time 05/14/12 9:25 AM Narrative: AP or PA chest Comparison: December 12 Clinical history: Chest pain. Findings: The cardiac silhouette and pulmonary vascularity are within normal limits. There are no infiltrates or masses seen. No evidence of pneumothorax. The patient is status post median sternotomy. Impression: Impression: No acute cardiopulmonary disease. MYOGLOBIN Collection Time 05/14/12 12:28 PM Component Value Range MYOGLOBIN, PLASMA 36 16 - 97 (ng/ml) Narrative: CARDIAC GRABIEL-3HR GRABIEL-3 HR from 706:[id number]. CARDIAC TROP-3HR TROP-3 HR from 706:[id number]. CARDIAC Interim: CAR3 from [id number]. TROPONIN Collection Time 05/14/12 12:28 PM Component Value Range TROPONIN I LESS THAN 0.04 0 - 0.4 (ng/ml) Narrative: CARDIAC GRABIEL-3HR GRABIEL-3 HR from 706:[id number]. CARDIAC TROP-3HR TROP-3 HR from 706:[id number]. CARDIAC Interim: CAR3 from 706:[id number]. CARDIAC INTERPRETATION (3 HR) Collection Time 05/14/12 12:28 PM Component Value Range INTERPRETATION Test not performed Narrative: CARDIAC GRABIEL-3HR GRABIEL-3 HR from 706:[id number]. CARDIAC TROP-3HR TROP-3 HR from 706:[id number]. CARDIAC Interim: CAR3 from 706:[id number]. TROPONIN Collection Time 05/14/12 3:25 PM Component Value Range TROPONIN I Test not performed 0 - 0.4 (ng/ml) Narrative: CARDIAC TROP-6HR TROP-6 HR from 706:[id number]. CARDIAC Interim: CAR6 from 706:[id number]. CARDIAC INTERPRETATION (6 HR) Collection Time 05/14/12 3:25 PM Component Value Range INTERPRETATION Test not performed Narrative: CARDIAC TROP-6HR TROP-6 HR from 706:[id number]. CARDIAC Interim: CAR6 from 706:[id number]. CARDIAC ENZYMES Collection Time 05/14/12 9:25 PM Component Value Range INTERPRETATION See below. Narrative: CARDIAC TROP-12HR TROP-12 HR from 706:[id number]. CARDIAC Final: FINAL from 706:[id number]. TROPONIN Collection Time 05/14/12 9:25 PM Component Value Range TROPONIN I Test not performed 0 - 0.4 (ng/ml) Narrative: CARDIAC TROP-12HR TROP-12 HR from 706:[id number]. CARDIAC Final: FINAL from 706:[id number]. Assessment: CT showed enlarged appendix of 13 cm consistent with acute appendicitis. Has an umbilical hernia which showed probable incarcerated fat. To OR for surgical tr eatment. Plan: 1. Discussed the risk of surgery including bleeding and infection, and the risk s of general anesthetic including OH, CVA, sudden or even reaction to anes thetic medications. The patient understands the risks, any and all questions wer e answered to the patient's satisfaction. 2. Laparoscopic appendectomy, possible open, and umbilical hernia repair. 3. Preoperative IV Levaquin and IV Flagyl. documented in this encounter Procedure Notes * Aok Scanning, [facility] - 05/31/2012 3:03 PM CDT Associated Order(s): ECG REPORT Electronically signed by Interface, [facility] Aok Transcriptions Incoming at 2 3:03 PM CDT * Aok Scanning, [facility] - 05/31/2012 3:01 PM CDT Associated Order(s): TELEMETRY REPORT Electronically signed by Interface, [facility] Aok Transcriptions Incoming at 2 3:01 PM CDT * David Ferrer MD - 05/30/2012 2:16 PM CDT Associated Order(s): ECG REPORT [address] [address] EKG OLIVERIO TINSLEY [id number] 05/28/12 at 1347. The rhythm is regular, sin us in origin with a rate of 87 beats per minute. DC interval is prolonged. Elect rical axis is leftward. T waves are flattened to inverted in lateral limb leads. QS waves are seen in limb lead III without abnormal Q waves in leads II or aVF. Compared with previous tracing, same day, R wave transition occurs slightly ear lier across the chest currently. Minimal R waves are noted in limb lead III prev iously. Diagnosis: 1) Sinus rhythm, rate 87 beats per minute. 2) Leftward axis. 3) 1st degree AV block. 4) Low voltage limb leads. 5) Borderline inferior limb l ead Q waves, inferior wall myocardial infarct of undetermined age cannot be comp letely ruled out. 6) Nonspecific T wave changes. Dictated by S.V.W. Dictated by: EKG DD 05/30/12 TD 05/30/12/LRG EKG REPORT # [id number] ORDER # * David Ferrer MD - 05/30/2012 2:16 PM CDT Associated Order(s): ECG REPORT [facility], [address] [address] EKG OLIVERIO TINSLEY [id number] 05/28/12 at 0920. The rhythm is regular, sin us in origin with a rate of 93 beats per minute. DC interval is borderline prolo nged. Electrical axis is leftward. Slow R wave progression is seen in the anter oseptal chest leads. R wave transition is delayed. T waves are inverted in later al limb leads. Compared with previous tracing dated May 14 2012, R wave trans ition occurs slightly earlier across the chest previously. Diagnosis: 1) Sinus r hythm, rate 93 beats per minute. 2) Borderline prolonged DC interval. 3) Leftwar d axis. 4) Clockwise rotation of horizontal electrical axis. 5) Nonspecific T wa ve changes. Dictated by SVinnyW. Dictated by: EKG DD 05/30/12 TD 05/30/12/LRG EKG REPORT # [id number] ORDER # documented in this encounter Consult Notes * Claus Couch MD - 05/28/2012 2:42 PM CDT Associated Order(s): IP CONSULT TO FAMILY PRACTICE Oliverio Tinsley is a 61 y.o. male [facility] to abdominal pain was found to have acute appendicitis was taken to surgery are now being consult said for chest pain arising secondary patient admits to t he chest pain actually had started last night radiating down towards his left ar m some numbness associated with his fingers it came on suddenly one nitroglyceri n did resolve the pain last night he does have a history of coronary artery dise ase the chest pain he had short after surgery required 2 nitroglycerin however h is chest pain did improve shortness of breath improved diapiresis improved as we ll. Currently he is feeling much better denies any chest pain nausea vomiting di zziness shortness of breath has abdominal pain however he is just status post valero rgery less than one to 2 hour which is appropriate No current facility-administered medications on file prior to encounter. Current Outpatient Prescriptions on File Prior to Encounter Medication Sig Dispense Refill zolpidem (AMBIEN) 10 mg Oral tablet Take 1 Tab by mouth nightly as needed fo r Insomnia. 30 Tab 0 pioglitazone (ACTOS) 30 mg [...] Tab by mouth daily. 30 Tab 11 diclofenac sodium (VOLTAREN) 50 mg Oral TbEC Take 1 Tab by mouth 2 times conor ly. 60 Tab 11 loratadine (CLARITIN) 10 mg Oral [...] needed for Chest Pain. 25 Tab prn oxaprozin (DAYPRO) 600 mg Oral tablet Take 1 Tab by mouth daily. 30 Tab 11 fenofibrate nanocrystallized (TRICOR) 145 mg Oral [...] 02/01/2009 COLONOSCOPY performed by MARY MOORE at [facility] OR Hx hernia repair 1988 And age 4 Hx lap cholecystectomy 05/17/07 Hx coronary artery bypass graft Hx heart catheterization 04/10 With angioplasty, 2 stents Family History Problem Relation Age of Onset [...] Smokeless tobacco: Never Used Alcohol Use: No A review of relevant systems is otherwise negative OBJECTIVE: Physical Exam: BP 125/73 | Pulse 89 | Temp(Src) 99 F (37.2 C) (Tympanic) | Resp 22 | Ht 5' 6" (1.676 m) | Wt 223 lb (101.152 kg) | BMI 35.99 kg/m2 | SpO2 92% General appearance: alert, in no distress Head: atraumatic, Normocephalic, without obvious abnormality Lungs: clear to auscultation bilaterally, normal respiratory [...] strength, normal tone Lab Results Component Value Date WBC 14.69* 05/28/2012 HEMOGLOBIN 13.9 05/28/2012 HEMATOCRIT 41.6 05/28/2012 PLATELETS 254 05/28/2012 MCV 86.0 05/28/2012 Lab Results Component Value Date SODIUM 136 05/28/2012 POTASSIUM 3.9 05/28/2012 CHLORIDE 102 05/28/2012 CO2 28.2 05/28/2012 CALCIUM 9.1 05/28/2012 BUN 12.0 05/28/2012 CREATININE 1.06 05/28/2012 GLUCOSE 185* 05/28/2012 TOTAL PROTEIN 7.6 05/28/2012 ALBUMIN 4.0 05/28/2012 BILIRUBIN TOTAL 0.8 05/28/2012 ALKALINE PHOSPHATASE 77 05/28/2012 AST 19 05/28/2012 ALT 37 05/28/2012 ANION GAP 10 05/28/2012 BUN/CREAT RATIO 11.3 05/28/2012 ASSESSMENT: Principal Problem: *Status post laparoscopic appendectomy Active Problems: Acute appendicitis Umbilical hernia without mention of obstruction or gangrene PLAN: See orders will continue to monitor cardiac enzymes for a total of 12 hours as w ell as EKGs initial EKGs with no changes continue patient on telemetry chest darinel n protocol we'll continue to monitor him along side documented in this encounter OR Notes * OR Anesthesia - Aok Scanning, Him - 05/31/2012 2:08 PM CDT Electronically signed by Sienna, Bong Aok Transcriptions Incoming at 2 2:08 PM CDT * OR Anesthesia - Walter Beaver CRNA - 05/29/2012 9:33 AM CDT Post Operative Anesthesia Note Patient: Oliverio Tinsley Medical record: [id number] Post: APPENDECTOMY LAPAROSCOPIC, HERNIA UMBILICAL REPAIR Anesthesia Problems: Has had some complaints of chest pain, same as prior to surgery. Has not voided since surgery. 05/29/2012, 9:33 AM Will MERCEDEZ Beaver * OR Anesthesia - Walter Beaver CRNA - 05/29/2012 9:32 AM CDT Post Anesthesia Evaluation Note Anesthesia Type: General Airway Patency: normal Vital Signs: Temp: 97.6 F (36.4 C) (05/29/12726) Pulse: 67 (05/29/12726) BP: 111/62 mmHg (05/29/12726) Resp: 20 (05/29/12726) SpO2: 96 % (05/29/12726) Pain Assessment: Presence of Pain: denies pain/discomfort (05/29/12 0300) Pain Rating: Rest: 7 (05/29/12 0752) Gastrointestinal Assessment: Gastrointestinal (WDL): Re-assessment completed an d no changes noted from last filed value (05/29/12 030) Last Nausea: Signs/Symptoms: (denies at this time) (05/28/12 195) Last Emesis: Post-Op hydration: Intake/Output Summary (Last 24 hours) at 05/29/12 0932 Last data filed at 05/29/12 0900 Gross per 24 hour Intake 2460 ml Output 800 ml Net 1660 ml Post Anesthesia Modified Ofelia: Activity: able to move 4 extremities voluntarily or on command (07/21/12 1319) Respiration: able to breath and cough freely (05/28/121318) Circulation: BP within 20% of preanesthetic level (05/28/121318) Consciousness: arousable on calling (05/28/121318) O2 Saturation: able to maintain O2 saturation greater than 92% on room air (05/09) Will MERCEDEZ Beaver 05/29/2012; 9:32 AM * Zohra-OP - Pauline Andrews RN - 05/28/2012 1:07 PM CDT Resting quietly, no further c/o nausea, eyes closed, resp. Unlabored. O 2 sat 97 -99% on 10 liters by face tent. * Zohra-OP - Pauline Andrews RN - 05/28/2012 12:55 PM CDT Patient nauseated, zofran given, cool cloth to forehead, HOB elevated. Gagged a couple of times but no emesis. Resting with eyes closed. * Zohra-OP - Sourav Cesar - 05/28/2012 12:53 PM CDT Local of Sensorcaine 0.5% used by Dr. Moore. * Operative Report - Mary Moore MD - 05/28/2012 12:46 PM CDT Appendectomy, Lap, Procedure Note Indications: The patient was admitted to the hospital with a brief history of ri ght-sided abdominal pain. A CT scan revealed findings consistent with acute appe ndicitis. Pre-operative Diagnosis: Acute appendicitis Post-operative Diagnosis: Acute appendicitis Surgeon: Mary Moore MD Assistants: none Anesthesia: General endotracheal anesthesia ASA Class: 3 Procedure Details The patient was seen in the Holding Room. After obtaining appropriate consent, t he patient was taken to the operating theatre. The site of surgery properly not ed/marked. With the presence of all operating room staff members, the patient wa s identified as Oliverio Tinsley and the procedure verified as laparoscopic appe ndectomy, possible open. A Time Out was held and the above information confirme d. The patient was placed supine , and bilateral Alternating Leg Pressure device wa s placed. After induction of satisfactory general anesthesia, a Ulloa catheter was inserted sterilely for perioperative bladder decompression. The abdomen was prepped and draped in a sterile fashion. Local anesthetic agent of 0.5% Marcaine was injected into the skin near the umbilicus and an incision made. The midline fascia incised and a Jacoby technique was used to introduce a 12 mm port under direct vision. The pneumoperitoneum was then established to steady pressure of 15 mmHg with Carbon Dioxide gas. A 5-mm port was placed suprapubic under direct visualization and facilitated by the blade-less trocar. Additional 5 mm cannula was placed in the right flank area under direct vision, and facilitated by a bl barbara-less trocar. A careful evaluation of the entire abdomen was carried out. The patient was placed in Trendelenburg and partial left lateral decubitus position. The small intestines were retracted in the cephalad direction away from the pe lvis. The patient was found have an enlarged and inflamed appendix that was exte nding into the pelvis. There was no evidence of perforation. The appendix was carefully dissected. A window was made in the mesoappendix at t he base of the appendix. A vascular load endo-GLORIA was fired across the mesoappen reno. The appendix was divided at its base using an endo-GLORIA stapler. Minimal francis endiceal stump was left in place. Hemostasis was assured with vascular clips. Copious irrigation was achieved with sterile normal saline. Irrigation fluid as pirated. All ports were removed and the pneumoperitoneum decompressed. The umbilical port was extended, with hernia sac excised and the fascia edges ci rcumferentially identified. The fascia was closed with interrupted 0 PDS. Afte r irrigation, the subcutaneous layer for the umbilicus was closed with 0 Vicryl. All skin incisions were closed with skin dominic. Antibiotic ointment and Ban d-Aids complete the procedure. Instrument, sponge, and needle counts were reportedly correct prior to abdominal closure and at the conclusion of the case. Findings: The appendix was found to be inflamed. There was signs of necrosis. There was n o perforation. There was no abscess formation. Umbilical hernia defect with inc arcerated preperitoneal fat. Estimated Blood Loss: Minimal Drains: none Specimens: appendix Complications: None; patient tolerated the procedure well. Patient transferred to PACU in stable condition. * OR Anesthesia - Walter Beaver CRNA - 05/28/2012 12:44 PM CDT Post Operative Anesthesia Note Patient: Oliverio Tinsley Medical record: [id number] Post: APPENDECTOMY LAPAROSCOPIC, HERNIA UMBILICAL REPAIR Anesthesia Problems: No anesthesia problems/complications 05/28/2012, 12:44 PM Will MERCEDEZ Beaver * Zohra-OP - Pauline Andrews RN - 05/28/2012 12:39 PM CDT Arrived to PACU skin pink, warm & dry to touch. Resp. Unlabored at 18/min. O2 per face tent with O2 @ 10 liters. O2 sat. 95-96%. IV of LR infusing to right hand without difficulty. Abd. Soft with 3 dressings noted. Clean, dry & intact. Alp's on bilaterally. Vitals taken & charted, see for details. Will continue to monitor patient. * OR Anesthesia - Walter Beaver CRNA - 05/28/2012 11:51 AM CDT Subjective: 05/28/2012 , the patient and caregivers were interviewed in the ER. Patient is a 61 y.o. male scheduled for Procedure(s): APPENDECTOMY LAPAROSCOPIC. Medical record [id number]. Patient Active Problem List Diagnoses Date Noted Acute appendicitis 05/28/2012 MRSA (methicillin resistant staph aureus) culture positive 09/12/2010 Cellulitis 09/10/2010 Personal History of Colonic Polyps 02/06/2009 Tubular Adenoma 02/05/2009 Hyperlipidemia 11/12/2008 Anemia 11/12/2008 DM w/o complication type I Cor athrscl-uns vessel Unspecified essential hypertension Other Convulsions Chronic airway obstruction, not elsewhere classified BPH w/o Urinary Obs/LUTS Neurogenic Bladder, NOS Unspecified Glaucoma Bipolar Disorder, Unspecified Past [...] 02/01/2009 COLONOSCOPY performed by MARY MOORE at [facility] OR hernia repair 1988 And age 4 Hx lap cholecystectomy 05/17/07 Hx coronary artery bypass graft Hx heart catheterization 04/10 With angioplasty, 2 stents History Social History Marital Status: Spouse Name: N/A Number of Children: N/A Years of Education: N/A Occupational History Disabled Social History Main Topics Smoking status: Former Smoker -- 4.0 packs/day for 40 years Types: Cigarettes Quit date: 03/08/1995 Smokeless tobacco: Never Used Alcohol Use: No Drug Use: Yes Special: Prescription Drugs Sexually Active: Not Currently Other Topics Concern Not on file Social History Narrative No narrative on file No current facility-administered medications on file prior to encounter. Current Outpatient Prescriptions on File Prior to Encounter Medication Sig Dispense Refill zolpidem (AMBIEN) 10 mg Oral tablet Take 1 Tab by mouth nightly as needed fo r Insomnia. 30 Tab 0 pioglitazone (ACTOS) 30 mg [...] Tab by mouth daily. 30 Tab 11 diclofenac sodium (VOLTAREN) 50 mg Oral TbEC Take 1 Tab by mouth 2 times conor ly. 60 Tab 11 loratadine (CLARITIN) 10 mg Oral [...] needed for Chest Pain. 25 Tab prn oxaprozin (DAYPRO) 600 mg Oral tablet Take 1 Tab by mouth daily. 30 Tab 11 fenofibrate nanocrystallized (TRICOR) 145 mg Oral [...] hours as needed for P ain. Current facility-administered medications:sodium chloride 0.9 % flush injection 3 mL, 3 mL, IV, BID, Leisure, Lynieta L., MAINTENANCE TECH; famotidine PF (PEPCID) 20 mg/2 mL injection 20 mg, 20 mg, IV, BID, Leisure, Lynieta L., MAINTENANCE TECH, 20 mg at 05/28/12901; ondansetron (ZOFRAN) 4 mg/2 mL injection 4 mg, 4 mg, IV, ONCE, Leisure, Lynieta L., MAINTENANCE TECH, 4 mg at 05/28/12901 GI cocktail oral suspension 30 mL, 30 mL, Oral, ONCE, Leisure, Lynieta L., MAINTENANCE TECH, 30 mL at 05/28/12901; fentaNYL PF (SUBLIMAZE) 50 mcg/mL injection 50 mcg, 50 mcg, IV, ONCE, Leisure, Lynieta L., MAINTENANCE TECH, 50 mcg at 05/28/12 1006; levofloxacin (LEVAQUIN) 750 mg/150 mL in D5W IVPB 750 mg, 750 mg, IV, ONCE, Leisure, Lynieta L., MAINTENANCE TECH, 750 mg at 05/28/12 1012; metroNIDAZOLE (FLAGYL) IVPB 500 mg, 500 mg, IV, ONCE, Leisure, Lynieta L., MAINTENANCE TECH fentaNYL PF (SUBLIMAZE) 50 mcg/mL injection 50 mcg, 50 mcg, IV, ONCE, Leisure, L ynieta L., MAINTENANCE TECH, 50 mcg at 05/28/12 1054 Allergies Allergen Reactions Codeine Unknown Doxycycline Rash Phenobarbital Weakness "relaxes me too much" Piperacillin-Tazobactam Hives and Rash Breaks out Terazosin Other (See Comments) Chest heaviness, chest pain Valium (Diazepam) Other (See Comments) "stops breathing, no pulse" Anesthesia Concerns Risks discussed, questonsanswered. ASA Risk ASA 3 - Patient with moderate systemic disease with functional limitations Plan: Monitoring explained. Airway assessment was perfomed; a Mallampati score of II (soft palate, uvula, fauces visible) was given. The risks and benefits of the p roposed anesthetic have been discussed with patient and caregivers. The patient /designee has agreed to GETA with GETA as a backup. Anesthesia guideline orders initiated. documented in this encounter ED Notes * Sybil HenryKarlos, MAINTENANCE TECH - 05/28/2012 9:48 AM CDT HISTORY OF PRESENT ILLNESS Oliverio Tinsley, a 61 y.o. male presents to the ED with a Chief Complaint of Ab dominal Pain Patient is a 61 y.o. male presenting with abdominal pain. The history is provide d by the patient. Abdominal Pain The primary symptoms of the illness include abdominal pain, nausea, vomiting and diarrhea. The primary symptoms of the illness do not include fever, fatigue, he matemesis, hematochezia or dysuria. The current episode started less than 1 hour ago. Additional symptoms associated with the illness include heartburn. Symptoms asso ciated with the illness do not include chills, anorexia, diaphoresis, constipati on, urgency, hematuria, frequency or back pain. REVIEW OF SYSTEMS Review of Systems Constitutional: Negative for fever, chills, diaphoresis and fatigue. Gastrointestinal: Positive for heartburn, nausea, vomiting, abdominal pain and d iarrhea. Negative for constipation, hematochezia, anorexia and hematemesis. Genitourinary: Negative for dysuria, urgency, frequency and hematuria. Musculoskeletal: Negative for back pain. PAST MEDICAL HISTORY REVIEWED Past Medical History [...] 02/01/2009 COLONOSCOPY performed by MARY MOORE at [facility] OR Hx hernia repair 1988 And age 4 Hx lap cholecystectomy 05/17/07 Hx coronary artery bypass graft Hx heart catheterization 04/10 With angioplasty, 2 stents Family History Problem Relation Age of Onset [...] Patient Active Problem List Diagnoses Date Noted Acute appendicitis 05/28/2012 MRSA (methicillin resistant staph aureus) culture [...] SODIUM (VOLTAREN) 50 MG ORAL TBEC Take 1 Tab by mouth 2 times conor ly. ESOMEPRAZOLE (NEXIUM) 40 MG ORAL CPDR Take 1 Cap by mouth daily before break fast. FENOFIBRATE NANOCRYSTALLIZED (TRICOR) 145 MG ORAL TABLET [...] 1 Tab by mouth 3 times daily. METOPROLOL SUCCINATE ER 24 HOUR (TOPROL XL) 25 MG ORAL TABLET Take 1 Tab by mouth daily. MULTIVITAMIN PO Take 1 Tab by mouth daily with lunch. NITROGLYCERIN (NITROSTAT) 0.[address] 1 Tab under tongue ev len 5 minutes as needed for Chest Pain. OXAPROZIN (DAYPRO) 600 MG ORAL TABLET Take 1 Tab by mouth daily. PHENYTOIN (PHENYTEK) 200 MG ORAL CAP Take [...] 4 hours as needed for P ain. ZETIA 10 MG ORAL TAB Take 10 mg by mouth daily at bedtime. ZOLPIDEM (AMBIEN) 10 MG ORAL TABLET Take 1 Tab by mouth nightly as needed fo r Insomnia. Medications Modified during this Encounter Medications Discontinued during this Encounter PHYSICAL EXAM Initial Vitals BP 05/28/12 0837 150/83 mmHg Pulse 05/28/12 0837 96 Resp 05/28/12 0837 18 Temp 05/28/12 0837 99.1 F (37.3 C) Temp src 05/28/12 0837 Tympanic SpO2 05/28/12 0837 95 % Physical Exam Constitutional: He is oriented to person, place, and time. He appears well-devel oped and well-nourished. HENT: Head: Normocephalic and atraumatic. Mouth/Throat: Oropharynx is clear and moist. Eyes: Pupils are equal, round, and reactive to light. Neck: Normal range of motion. Neck supple. Cardiovascular: Normal rate, regular rhythm and normal heart sounds. Pulmonary/Chest: Effort normal and breath sounds normal. Abdominal: He exhibits distension. He exhibits no mass. There is tenderness. The re is rebound. There is no guarding. Musculoskeletal: Normal range of motion. He exhibits edema (trace bilateral lowe r extremity edema). Lymphadenopathy: He has no cervical adenopathy. Neurological: He is alert and oriented to person, place, and time. Skin: Skin is warm and dry. Psychiatric: He has a normal mood and affect. DIAGNOSTICS LAB: Results for orders placed during the hospital encounter of 05/28/12 (from the [facility] 24 hour(s)) CBC WITH MANUAL DIFFERENTIAL Component Value Range BANDS 10 0 - 22 (%Manual) NEUTROPHILS, SEG 73 (*) 30 - 68 (%Manual) LYMPHOCYTES 7 (*) 14 - 50 (%Manual) MONOCYTE 7 0 - 11 (%Manual) ATYPICAL LYMPHOCYTE 3 0 - 6 (%Manual) PLATELET EST. Normal WBC ESTIMATE Increased WBC 14.69 (*) 3.0 - 10.4 (x10E3) RBC 4.84 4.15 - 5.75 (x10E6) HEMOGLOBIN 13.9 13.8 - 17.4 (g/dL) HEMATOCRIT 41.6 38.6 - 49.4 (%) MCV 86.0 79 - 100 (fL) MCH 28.7 28 - 34 (pg) MCHC 33.4 31 - 35 (g/dL) RDW 13.4 12.1 - 14.1 (%) PLATELETS 254 148 - 408 (x10E3) MPV 7.8 7.4 - 10.6 (fL) NEUTROPHILS 82.9 (*) 43 - 73 (%) LYMPHOCYTES 8.1 (*) 19 - 47 (%) MONOCYTES 8.3 3 - 9 (%) EOSINOPHILS 0.5 0 - 6 (%) BASOPHILS 0.2 0 - 1.2 (%) NEUTROPHIL ABSOLUTE 12.18 (*) 1.3 - 7.6 (x10E3) LYMPHOCYTE ABSOLUTE 1.18 0.6 - 4.9 (x10E3) MONOCYTE ABSOLUTE 1.21 (*) 0.1 - 0.9 (x10E3) EOSINOPHIL ABSOLUTE 0.08 0.0 - 0.2 (x10E3) BASOPHILS ABSOLUTE 0.03 0 - 0.1 (x10E3) COMPREHENSIVE METABOLIC PANEL Component Value Range GLUCOSE 185 (*) 70 - 100 (mg/dl) BUN 12.0 7 - 20 (mg/dl) CREATININE 1.06 0.8 - 1.3 (mg/dl) BUN/CREAT RATIO 11.3 10 - 20 GFR 75 >60 (ml/min) SODIUM 136 134 - 145 (mmol/L) POTASSIUM 3.9 3.3 - 4.8 (mmol/L) CHLORIDE 102 98 - 107 (mmol/L) CO2 28.2 22 - 31 (mmol/L) ANION GAP 10 4 - 20 CALCIUM 9.1 8.5 - 10.1 (mg/dl) ALBUMIN 4.0 3.4 - 5.0 (g/dl) TOTAL PROTEIN 7.6 6.4 - 8.2 (g/dl) GLOBULIN (CALC) 3.6 ALBUMIN/GLOBULIN RATIO 1.1 BILIRUBIN TOTAL 0.8 <1.1 (mg/dl) ALKALINE PHOSPHATASE 77 50 - 136 (IU/L) AST 19 10 - 40 (IU/L) ALT 37 25 - 70 (IU/L) LIPASE Component Value Range LIPASE 103 84 - 319 (U/L) MYOGLOBIN Component Value Range MYOGLOBIN, PLASMA 31 16 - 97 (ng/ml) TROPONIN Component Value Range TROPONIN I 0.05 0 - 0.4 (ng/ml) RADIOLOGY: CT ABDOMEN PELVIS WO CONTRAST (Results Pending) Per virtual radiologic, acute appendicitis, stone left renal pelvis without hydr onephrosis XR CHEST PA OR AP (Results Pending) EKG: NSR 77 PROCEDURES Procedures below REEVALUATION MEDICAL DECISION MAKING AND PLAN OF CARE Surgery today, Dr Moore . New Prescriptions for this Encounter Last vitals BP 150/83 | Pulse 96 | Temp(Src) 99.1 F (37.3 C) (Tympanic) | R barbara 18 | Ht 5' 6" (1.676 m) | Wt 101.152 kg | BMI 35.99 kg/m2 | SpO2 95% Coding Medications Administered During the ED Stay from 05/28/2012 0823 to 05/28/2012 1 039 Date/Time Order Dose Route Action 05/28/2012 1007 sodium chloride 0.9 % flush injection 3 mL mL IV Given 05/28/2012 0901 sodium chloride 0.9 % flush injection 3 mL mL IV Given 05/28/2012 0902 famotidine PF (PEPCID) 20 mg/2 mL injection 20 mg 20 mg IV Give n 05/28/2012 0902 ondansetron (ZOFRAN) 4 mg/2 mL injection 4 mg 4 mg IV Given 05/28/2012 0902 GI cocktail oral suspension 30 mL 30 mL Oral Given 05/28/2012 1006 fentaNYL PF (SUBLIMAZE) 50 mcg/mL injection 50 mcg 50 mcg IV Gi kathe 05/28/2012 1012 levofloxacin (LEVAQUIN) 750 mg/150 mL in D5W IVPB 750 mg 750 mg IV Given CLINICAL IMPRESSION Encounter Diagnoses Code Name Primary? 540.9 Acute appendicitis CASE DISCUSSED Dr Moore, to take pt to surgery today PATIENT COUNSELING Diagnostics reviewed and questions answered. Diagnosis, treatment options and p brianna of care discussed with understanding verbalized. DISPOSITION, EDUCATION AND MEDICATION RECONCILIATION Medications reconciled. See after visit summary for patient education on discha rged patients. documented in this encounter Miscellaneous Notes * Scanned Form - Aok Scanning, [facility] - 06/02/2012 1:29 PM CDT Electronically signed by Interface, [facility] Aok Transcriptions Incoming at 2 1:29 PM CDT * Scanned Form - Aok Scanning, [facility] - 05/31/2012 2:08 PM CDT Electronically signed by Interface, [facility] Aok Transcriptions Incoming at 2 2:08 PM CDT * Scanned Form - Aok Scanning, [facility] - 05/31/2012 2:08 PM CDT Electronically signed by Interface, [facility] Aok Transcriptions Incoming at 2 2:08 PM CDT * Scanned Form - Aok Scanning, [facility] - 05/31/2012 2:05 PM CDT Electronically signed by Interface, [facility] Aok Transcriptions Incoming at 2 2:05 PM CDT * Scanned Form - Aok Scanning, [facility] - 05/30/2012 12:40 PM CDT Electronically signed by Interface, [facility] Aok Transcriptions Incoming at 2 12:40 PM CDT * Care Plan - Jo Leger RN - 05/29/2012 10:47 AM CDT Problem: General Plan of Care (Adult, Obstetrics) Goal: Plan of Care Review (Adult, Obstetrics) The patient and/or their patient portal representative will communicate an understanding of the ir plan of care. Outcome: Progressing Will get IV antibiotics as ordered and use the incentive spirometer and be monit ored for pain med * Care Plan - Jo Leger RN - 05/29/2012 10:46 AM CDT Problem: General Plan of Care (Adult, Obstetrics) Goal: Individualization/Patient-Specific Goal (Adult, Obstetrics) The patient and/or their patient portal representative will achieve their patient-specific goal s related to the plan of care. The patient-specific goals include: Patient says he wants to get better and than go home. Outcome: Progressing Patient is wanting to get better and than go home. * Care Plan - Jo Leger RN - 05/28/2012 2:54 PM CDT Problem: Fall/Trauma/Injury Risk (Adult) Goal: Fall/Trauma/Injury Risk: Absence of Trauma/Injury/Falls Patient will demonstrate the desired outcomes. Outcome: Progressing Fall precautions are in effort * Care Plan - Jo Leger RN - 05/28/2012 2:54 PM CDT Problem: General Plan of Care (Adult, Obstetrics) Goal: Plan of Care Review (Adult, Obstetrics) The patient and/or their patient portal representative will communicate an understanding of the ir plan of care. Outcome: Progressing Patient is told about the IV and the pain meds that he can have and the oxygen documented in this encounter Plan of Treatment Not on filedocumented as of this encounter Procedures Comments Procedure Name Priority Date/Time Associated Diag nosis ECG REPORT 05/31/2012 3:03 PM CDT TELEMETRY REPORT 05/31/2012 3:01 PM CDT ECG REPORT 05/30/2012 2:40 PM CDT POC GLUCOSE Routine 05/30/2012 7:02 AM CDT POC GLUCOSE Routine 05/29/2012 10:00 PM CDT POC GLUCOSE Routine 05/29/2012 4:15 PM CDT POC GLUCOSE Routine 05/29/2012 11:29 AM CDT POC GLUCOSE Routine 05/29/2012 6:43 AM CDT TROPONIN Routine 05/29/2012 5:55 AM CDT MYOGLOBIN Routine 05/29/2012 5:55 AM CDT POC GLUCOSE Routine 05/28/2012 11:29 PM CDT CARDIAC ENZYMES Stat 05/28/2012 9:50 PM CDT TROPONIN Stat 05/28/2012 9:50 PM CDT POC GLUCOSE Routine 05/28/2012 7:57 PM CDT PATHOLOGY Routine 05/28/2012 6:17 PM CDT POC GLUCOSE Routine 05/28/2012 4:56 PM CDT CARDIAC INTERPRETATION (6 Stat 05/28/2012 HR) 3:45 PM CDT TROPONIN Stat 05/28/2012 3:45 PM CDT CARDIAC INTERPRETATION (3 Stat 05/28/2012 HR) 12:55 PM CDT TROPONIN Stat 05/28/2012 12:55 PM CDT MYOGLOBIN Stat 05/28/2012 12:55 PM CDT HERNIA UMBILICAL REPAIR 05/28/2012 11:07 AM CDT APPENDECTOMY LAPAROSCOPIC 05/28/2012 11:07 AM CDT XR CHEST PA OR AP 1 VW Stat 05/28/2012 10:[address] ABDOMEN PELVIS WO Stat 05/28/2012 CONTRAST 9:42 AM CDT CBC WITH MANUAL Stat 05/28/2012 DIFFERENTIAL 9:08 AM CDT TROPONIN Stat 05/28/2012 9:08 AM CDT MYOGLOBIN Stat 05/28/2012 9:08 AM CDT LIPASE Stat 05/28/2012 9:08 AM CDT COMPREHENSIVE METABOLIC Stat 05/28/2012 PANEL 9:08 AM CDT documented in this encounter Results * ECG REPORT (05/31/2012 3:03 PM CDT) Narrative Performed At This result has an attachment that is n ot available. Transcriptions David Bernard MD - 05/30/2012 2:16 PM CDT [facility]. [address] [place] [address]. [place], [place] [address] EKG OLIVERIO TINSLEY EF118 [id number] 05/28/12 at 0920. The rhythm is regular, sinus in origin with a rate of 93 beats per minute. DC interval is borderline prolonged. Electrical axis is leftward. Slow R wave progression is seen in the anteroseptal chest leads. R wave transition is delayed. T waves are inverted in lateral limb leads. Compared with previous tracing dated May 14 2012, R wave transition occurs slightly earlier across the chest previously. Diagnosis: 1) Sinus rhythm, rate 93 beats per minute. 2) Borderline prolonged DC interval. 3) Leftward axis. 4) Clockwise rotation of horizontal electrical axis. 5) Nonspecific T wave changes. Dictated by S.V.W. Dictated by: EKG DD 05/30/12 TD 05/30/12/LRG EKG REPORT # [id number] ORDER # 05/31/2012 3:03 PM CDT * TELEMETRY REPORT (05/31/2012 3:01 PM CDT) Narrative Performed At This result has an attachment that is n ot available. Transcriptions 05/31/2012 3:01 PM CDT * ECG REPORT (05/30/2012 2:40 PM CDT) Transcriptions David Bernard MD - 05/30/2012 2:16 PM CDT [facility]. [address] [place] [address]. [place], [place] [address] EKG OLIVERIO TINSLEY TOM [id number] 05/28/12 at 1347. The rhythm is regular, sinus in origin with a rate of 87 beats per minute. DC interval is prolonged. Electrical axis is leftward. T waves are flattened to inverted in lateral limb leads. QS waves are seen in limb lead III without abnormal Q waves in leads II or aVF. Compared with previous tracing, same day, R wave transition occurs slightly earlier across the chest currently. Minimal R waves are noted in limb lead III previously. Diagnosis: 1) Sinus rhythm, rate 87 beats per minute. 2) Leftward axis. 3) 1st degree AV block. 4) Low voltage limb leads. 5) Borderline inferior limb lead Q waves, inferior wall myocardial infarct of undetermined age cannot be completely ruled out. 6) Nonspecific T wave changes. Dictated by S.V.W. Dictated by: EKG DD 05/30/12 TD 05/30/12/LRG EKG REPORT # [id number] ORDER # * POC GLUCOSE (05/30/2012 7:02 AM CDT) POC GLUCOSE 180 (H)Comment: Luigi Kaur 70 - 110 mg/dl Mariusz Guzman, Point of Care LABORATORY Site,,,, SERVICES - [place] POC GLUCOSE 180 (H) 70 - 110 mg/dl [facility] - [place] Specimen Capillary blood specimen (specimen) Performing Organization Address City/State/Zipcode Ph one Number [facility] CLIA# [id number] MARIUSZ JEFFERSON [phone] - [place] [address] [place] [address] LABORATORY SERVICES CLIA# [id number] [place] [address] [place] [address] [place] [address] * POC GLUCOSE (05/29/2012 10:00 PM CDT) POC GLUCOSE 160 (H)Comment: [place], [place] 70 - 110 mg/dl SUGEY Elis Ruggiero Mariusz, Point of Care LABORATORY Site,,,, SERVICES - [place] POC GLUCOSE 160 (H) 70 - 110 mg/dl [employer] [facility] LABORATORY SERVICES - [place] Specimen Performing Organization Address City/[facility] Ph one Number [facility] LABORATORY SERVICES CLIA# [id number] MARIUSZ JEFFERSON [facility] [phone] - [place] [address] [place] [address] LABORATORY SERVICES CLIA# [id number] [place] [address] [place] [address] [place] [address] * POC GLUCOSE (05/29/2012 4:15 PM CDT) POC GLUCOSE 194 (H)Comment: [place], [place] 70 - 110 mg/dl SUGEY Ruggiero Mariusz, Point of Care LABORATORY Site,,,, SERVICES - [place] POC GLUCOSE 194 (H) 70 - 110 mg/dl [facility] SERVICES - [place] Specimen Capillary blood specimen (specimen) Performing Organization Address [facility] one [facility] LABORATORY SERVICES CLIA# [id number] MARIUSZ JEFFERSON [phone] - [place] [address] [place] [address] LABORATORY SERVICES CLIA# [id number] [place] [address] * POC GLUCOSE (05/29/2012 11:29 AM CDT) POC GLUCOSE 129 (H)Comment: [place], [place] 70 - 110 mg/dl SUGEY Ruggiero Mariusz, Point of Care LABORATORY Site,,,, SERVICES - [place] POC GLUCOSE 129 (H) 70 - 110 mg/dl [facility] LAB[facility]AT[facility] SERVICES - [place] Specimen Performing Organization Address City/[facility] Ph one Number [facility] LABORATORY SERVICES CLIA# [id number] MARIUSZ JEFFERSON [phone] - [place] [address] [place] [address] LABORATORY SERVICES CLIA# [id number] [place] [address] [place] [address] [place] [address] * POC GLUCOSE (05/29/2012 6:43 AM CDT) [facility] POC GLUCOSE 152 (H) 70 - 110 mg/dl [facility] Comment: [facility] - [place] ACCT#[id number], ,,,, [place] [facility] [place], Point of Care Site,,,, POC GLUCOSE 152 (H) 70 - 110 mg/dl [facility] LABORATORY SERVICES - [place] Specimen Capillary blood specimen (specimen) Performing Organization Address [facility] Ph one [facility] LABORATORY SERVICES CLIA# [id number] MARIUSZ JEFFERSON [facility] [phone] - [place] [address] [place] [address] LABORATORY SERVICES CLIA# [id number] [place] [address] [place] [address] [place] [address] * MYOGLOBIN (05/29/2012 5:55 AM CDT) [facility] MYOGLOBIN, 36Comment: [facility] 16 - 97 ng/ml M [facility] PLASMA ACCT#[id number], ,,,, LABORATORY SERVICES - [place] Specimen Blood specimen (specimen) Performing Organization Address [facility] one [facility] LABORATORY SERVICES CLIA# [id number] MARIUSZ JEFFERSON 667 - [place] [address] [place] [address] LABORATORY SERVICES CLIA# [id number] [place] [address] [facility] [place] [address] [place] [address] * TROPONIN (05/29/2012 5:55 AM CDT) [facility] TROPONIN I 0.20Comment: [facility] 0 - 0.4 ng/ml [facility] ACCT#[id number], ,,,, LABORATORY SERVICES - [place] Specimen Blood specimen (specimen) Performing Organization Address City/[facility] Ph one [facility] LABORATORY SERVICES CLIA# [id number] MARIUSZ JEFFERSON 667 - [place] [address] [place] [address] LABORATORY SERVICES CLIA# [id number] [place] [address] [place] [address] [place] [address] * POC GLUCOSE (05/28/2012 11:29 PM CDT) POC GLUCOSE 157 (H)Comment: Luigi Kaur 70 - 110 mg/dl [facility] [place], Point of Care LABORATORY Site,,,, SERVICES - [place] POC GLUCOSE 157 (H) 70 - 110 mg/dl [facility] LABORATORY SERVICES - [place] Specimen Performing Organization Address City/[facility] Ph one Number [facility] LABORATORY SERVICES CLIA# [id number] MARIUSZ JEFFERSON 667 01 - [place] [address] [place] [address] LABORATORY SERVICES CLIA# [id number] [place] [address] * TROPONIN (05/28/2012 9:50 PM CDT) [facility] TROPONIN I 0.27Comment: [facility] 0 - 0.4 ng/ml [facility] ACCT#[id number], ,,,, LABORATORY SERVICES - [place] Specimen Narrative Performed At CARDIAC TROP-12HR TROP-12 HR from [id number]. [facility] CARDIAC Final: FINAL from [id number]. SERVICES - [place] Performing Organization Address City/[facility] Ph one Number [facility] LABORATORY SERVICES CLIA# [id number] MARIUSZ JEFFERSON [address] - [place] [address] [place] [address] LABORATORY SERVICES CLIA# [id number] [place] [address] - [address] * CARDIAC ENZYMES (05/28/2012 9:50 PM CDT) INTERPRETATION See below. SUGEY Comment: LABORATORY INTERPRETATION - 05/30/12 0745 [facility] increased troponin-I [place] result at 12 hours. Acute myocardial injury cannot be completely ruled out. Correlation with clinical history and EKG findings is recommended. Linda Elise. [facility] LYNN ACCT#[id number], ,,,, Specimen Blood specimen (specimen) Narrative Performed At CARDIAC TROP-12HR TROP-12 HR from 720:[id number]. [place] LABORATORY CARDIAC Final: FINAL from 720:[id number]. SERVICES - [place] Performing Organization Address City/[facility]/Zipcode Ph one Number [facility] LABORATORY SERVICES CLIA# [id number] [place], [place] [address] - [address] LABORATORY SERVICES CLIA# [id number] [place] [address] * POC GLUCOSE (05/28/2012 7:57 PM CDT) POC GLUCOSE 140 (H)Comment: Mercedes 70 - 110 mg/dl [place], Point of Care LABORATORY Site,,,, SERVICES - [place] POC GLUCOSE 140 (H) 70 - 110 mg/dl [facility] LABORATORY SERVICES - [place] Specimen Performing Organization Address City/[facility] Ph one Number [facility] LABORATORY SERVICES CLIA# [id number] [place], [place] [address] - [address] LABORATORY SERVICES CLIA# [id number] [place] [address] * PATHOLOGY (05/28/2012 6:17 PM CDT) SURGICAL Name: OLIVERIO TINSLEY PATHOLOGY : PATHOLOGY 49 Location: [facility], [facility] MHCFMEDSJOSE CRUZ Sex: M Unit#: [id number] Room/Bed: [place] [address] Ordering Physician: Mary Moore M.D. RECD: 05/28/12 PROCEDURE DATE: 05/28/[address] [facility] [facility] [address]: Mary Moore M.D. [facility] DR: ICD CODES: 540.9 PROCEDURES: [id number] LOCATION: [facility] EPIC MATERIAL SUBMITTED Appendix. CLINICAL DIAGNOSIS: Acute appendicitis, umbilical hernia. Procedure: Laparoscopic appendectomy and umbilical hernia repair. Technical component performed at [facility], [address] [place] [address]. GROSS DESCRIPTION The specimen is labeled appendix. Received in formalin is a specimen recognized grossly as appendix with attached periappendiceal fat. The appendix measures 7.5 cm in length by up to 1.4 cm in diameter. There is exudate over the distal end of the appendix and the distal 80% of the appendix is discolored, brown to red, focally fluctuant. Metal dominic are present across the proximal end. Abundant periappendiceal fat is present measuring 6.5x2.4x1.7 cm. Perforation is not recognized grossly. The lumen appears patent along the length of the appendix. Floor Runner sections submitted in one cassette. Dictated by:Mahsa Bernard M.D., V. TD:05/30/12847 NARGIS MICROSCOPIC DESCRIPTION Sections reveal ulcerations of the colonic mucosa lining the appendix lumen. There is abundant acute inflammatory exudate filling the lumen and extending through the appendix wall, onto the serosal surface. Perforation is not recognized. Dictated by:Mahsa Bernard M.D., V. TD:05/30/121452 NARGIS FINAL DIAGNOSIS Appendix: Acute appendicitis. Dictated by: Mahsa Bernard M.D., V. TD:05/30/121452 NARGIS Signed (electronic signature) David Bernard M.D. 05/30/12 7195 END OF REPORT Comment: , ,,,, Specimen Specimen of unknown material (specimen) Performing Organization Address City/[facility] Cent[facility] Ph one Number [facility] LABORATORY SERVICES CLIA# [id number] [place], [place] [address] - [place] [address] PATHOLOGY CLIA# [id number] [place], [place] [address] [facility], [place]IS[place] [address] [place] [address] * POC GLUCOSE (05/28/2012 4:56 PM CDT) POC GLUCOSE 168 (H)Comment: Luigi Kaur 70 - 110 mg/dl Mariusz Guzman, Point of Care LABORATORY Site,,,, SERVICES - [place] POC GLUCOSE 168 (H) 70 - 110 mg/dl [facility] LABORATORY SERVICES - [place] Specimen Performing Organization Address City/[facility] Ph one Number [facility] LABORATORY SERVICES CLIA# [id number] [place], [place] [address] LABORATORY SERVICES CLIA# [id number] [place] [address] * CARDIAC INTERPRETATION (6 HR) (05/28/2012 3:45 PM CDT) INTERPRETATION Test not performedComment: [facility]ITALElisMARIUS[facility] LYNN LABORATORY ACCT#[id number], ,,,, SERVICES - [place] Specimen Narrative Performed At CARDIAC TROP-6HR TROP-6 HR from 720:[id number]. [facility] CARDIAC Interim: CAR6 from 720:[id number]. SERVICES - [place] Performing Organization Address City/State/[facility] Centercode Ph one Number [facility] LABORATORY SERVICES CLIA# [id number] MARIUSZ JEFFERSON [address] LABORATORY SERVICES CLIA# [id number] [place] [address] * TROPONIN (05/28/2012 3:45 PM CDT) TROPONIN I 0.08Comment: [facility]ALSANJEEVMI 0 - 0.4 ng/ml [facility] ACCT#[id number], ,,,, LABORATORY SERVICES - [place] Specimen Narrative Performed At CARDIAC TROP-6HR TROP-6 HR from 720:[id number]. [facility] CARDIAC Interim: CAR6 from 720:[id number]. SERVICES - [place] Performing Organization Address City/State/Zipcode Ph one Number [facility] LABORATORY SERVICES CLIA# [id number] MARIUSZ JEFFERSON [address] [place] [address] [place] [address] LABORATORY SERVICES CLIA# [id number] [place] [address] * CARDIAC INTERPRETATION (3 HR) (05/28/2012 12:55 PM CDT) INTERPRETATION Test not performedComment: [facility] LAB[facility]ATORY ACCT#[id number], ,,,, SERVICES - [place] Specimen Narrative Performed At CARDIAC GRABIEL-3HR GRABIEL-3 HR from 720:[id number]. [facility] ABORATORY CARDIAC TROP-3HR TROP-3 HR from 720:[id number]. [facility]I [place] CARDIAC Interim: CAR3 from 720:[id number]. [place] Performing Organization Address [facility] one [facility] LABORATORY SERVICES CLIA# [id number] MARIUSZ JEFFERSON 66 - [facility] [place] [address] [place] [address] LABORATORY SERVICES CLIA# [id number] [place] [address] * TROPONIN (05/28/2012 12:55 PM CDT) TROPONIN I 0.08Comment: [facility] 0 - 0.4 ng/ml [facility] ACCT#[id number], ,,,, LABORATORY SERVICES - [place] Specimen Narrative Performed At CARDIAC GRABIEL-3HR GRABIEL-3 HR from 720:[id number]. [facility] CARDIAC TROP-3HR TROP-3 HR from 720:[id number]. SERVI [facility] - [facility] CARDIAC Interim: CAR3 from 720:[id number]. [place] Performing Organization Address [facility] one [facility] LABORATORY SERVICES CLIA# [id number] MARIUSZ JEFFERSON [phone] - [address] LABORATORY SERVICES CLIA# [id number] [place] [address] [place] [address] * MYOGLOBIN (05/28/2012 12:55 PM CDT) MYOGLOBIN, 51Comment: [facility]PITALBAHMANMI 16 - 97 ng/ml [facility] PLASMA ACCT#[id number], ,,,, LABORATORY SERVICES - [place] Specimen Narrative Performed At CARDIAC GRABIEL-3HR GRABIEL-3 HR from 720:[id number]. [facility] CARDIAC TROP-3HR TROP-3 HR from 720:[id number]. SERVI [place] - [facility] CARDIAC Interim: CAR3 from 720:[id number]. [place] Performing Organization Address [facility] one [facility] LABORATORY SERVICES CLIA# [id number] MARIUSZ JEFFERSON [address] - [address] LABORATORY SERVICES CLIA# [id number] [place] [address] - [place] [address] [facility] * XR CHEST PA OR AP (05/28/2012 10:54 AM CDT) Specimen Impressions Performed At IMPRESSION: No acute abnormality identified in the ch est. INTERFACE SYSTEM Narrative Performed At Chest one view INTERFACE SYSTEM Indication: Fever. Comparison with 05/14/2012. Prior midline sternotomy. Changes of CO PD. Cardiac size and mediastinal structures similar in appearance. No evidence of pneumonia or pleural effusi on or pneumothorax. Mild scarring left lung base. Procedure Note Wally Sharpe MD - 05/30/2012 10:40 AM CDT Chest one view Indication: Fever. Comparison with 05/14/2012. Prior midline sternotomy. Changes of COPD. Cardiac size and mediastinal structures similar in appearance. No evidence of pneumonia or pleural effusion or pneumothorax. Mild scarring left lung base. IMPRESSION IMPRESSION: No acute abnormality identified in the chest. Performing Organization Address City/State/Zipcode Ph one Number INTERFACE SYSTEM INTERFACE SYSTEM Refer to clinic/hospital department * CT ABDOMEN PELVIS WO CONTRAST (05/28/2012 9:42 AM CDT) Specimen Impressions Performed At IMPRESSION: Findings suggest appendicitis. Left 1.2 c m renal pelvis INTERFACE SYSTEM calculi noted. No significant obstructi on. Narrative Performed At CT abdomen pelvis without contrast INTERFACE SYSTEM INDICATION: Right lower quadrant pain Noncontrast imaging performed. No IV or oral contrast dural given. No prior exams Lung bases clear. Liver and spleen show no gross abnormality. Gallbladder removed. Adrenal glands and pancreas are unremarkable. Kidneys demonstrate a calculus in the l eft renal pelvis measuring 1.2 cm. Mild dilatation left renal pelvis n oted. No hydroureter identified. Aorta normal in caliber. No adenopathy. No free air free fluid. Images through the right lower quadrant demonstrate stranding with small calcification and dilated tumor s tructures suggesting appendicitis. No other pelvic abnormali ty. Procedure Note Bong El Incoming Radiology Results - 05/30/2012 10:[address] abdomen pelvis without contrast INDICATION: Right lower quadrant pain Noncontrast imaging performed. No IV or oral contrast dural given. No prior exams Lung bases clear. Liver and spleen show no gross abnormality. Gallbladder removed. Adrenal glands and pancreas are unremarkable. Kidneys demonstrate a calculus in the left renal pelvis measuring 1.2 cm. Mild dilatation left renal pelvis noted. No hydroureter identified. Aorta normal in caliber. No adenopathy. No free air free fluid. Images through the right lower quadrant demonstrate stranding with small calcification and dilated tumor structures suggesting appendicitis. No other pelvic abnormality. IMPRESSION IMPRESSION: Findings suggest appendicitis. Left 1.2 cm renal pelvis calculi noted. No significant obstruction. Performing Organization Address [facility] Number INTERFACE SYSTEM INTERFACE SYSTEM Refer to clinic/hospital department * TROPONIN (05/28/2012 9:08 AM CDT) TROPONIN I 0.05Comment: [facility]ITALElisMARIUSZ LYNN 0 - 0.4 ng/ml [facility] ACCT#[id number], ,,,, LABORATORY SERVICES - [place] Specimen Narrative Performed At CARDIAC GRABIEL-0HR GRABIEL-0 HR from 720:[id number]. [facility] CARDIAC TROP-0HR TROP-0 HR from 0721:[id number]. DEVANG [place] Performing Organization Address [facility] LABORATORY SERVICES CLIA# [id number] MARIUSZ JEFFERSON [address] - [address] LABORATORY SERVICES CLIA# [id number] [place] [address] * MYOGLOBIN (05/28/2012 9:08 AM CDT) MYOGLOBIN, 31Comment: [facility]ITALElisMARIUSZ LYNN 16 - 97 ng/ml [facility] PLASMA ACCT#[id number], ,,,, LABORATORY SERVICES - [place] Specimen Narrative Performed At CARDIAC GRABIEL-0HR GRABIEL-0 HR from 0721:[id number]. [facility] CARDIAC TROP-0HR TROP-0 HR from 0721:[id number]. DEVANG [place] Performing Organization Address [facility] LABORATORY SERVICES CLIA# [id number] MARIUSZ JEFFERSON [address] - [address] LABORATORY SERVICES CLIA# [id number] [place] [address] * LIPASE (05/28/2012 9:08 AM CDT) LIPASE 103Comment: [facility]ITALMARIUSZ LYNN 84 - 319 U/L [facility] ACCT#[id number], ,,,, LABORATORY SERVICES - [place] Specimen Blood specimen (specimen) Performing Organization Address City/State/[facility] Centercode Ph one Number [facility] LABORATORY SERVICES CLIA# [id number] [place] [address] - [place] [address] [place] [address] LABORATORY SERVICES CLIA# [id number] [place] [address] - [address] * COMPREHENSIVE METABOLIC PANEL (05/28/2012 9:08 AM CDT) Pathologist [facility] GLUCOSE 185 (H) 70 - 100 mg/dl [facility] LABORATORY SERVICES - [place] BUN 12.0 7 - 20 mg/dl [facility] LABORATORY SERVICES - [place] CREATININE 1.06 0.8 - 1.3 mg/dl [facility] LABORATORY SERVICES - [place] BUN/CREAT RATIO 11.3 10 - 20 [facility] LABORATORY SERVICES - [place] GFR 75 >60 ml/min [facility] LABORATORY SERVICES - [place] SODIUM 136 134 - 145 mmol/L [facility] SERVICES - [place] POTASSIUM 3.9 3.3 - 4.8 mmol/L [facility] - [place] CHLORIDE 102 98 - 107 mmol/L [facility] SERVICES - [place] CO2 28.2 22 - 31 mmol/L [facility] SERVICES - [place] ANION GAP 10 4 - 20 [facility] LABORATORY SERVICES - [place] CALCIUM 9.1 8.5 - 10.1 mg/dl [facility] SERVICES - [place] ALBUMIN 4.0 3.4 - 5.0 g/dl [facility] SERVICES - [facility] [place] TOTAL PROTEIN 7.6 6.4 - 8.2 g/dl [facility] SERVICES - [place] GLOBULIN (CALC) 3.6 [facility] SERVICES - [facility] [place] ALBUMIN/GLOBULI 1.1 [facility] N RATIO LABORATORY SERVICES - [place] BILIRUBIN TOTAL 0.8 <1.1 mg/dl [facility] LABORATORY SERVICES - [place] ALKALINE 77 50 - 136 IU/L [facility] PHOSPHATASE LABORATORY SERVICES - [place] AST 19 10 - 40 IU/L [facility] SERVICES - [place] ALT 37Comment: [facility]ITALMARIUSZ SANCHEZ 25 - 70 IU/L [facility] ACCT#[id number], ,,,, LABORATORY SERVICES - [place] Specimen Blood specimen (specimen) Performing Organization Address City/State/Zipcode Ph one Number [facility] LABORATORY SERVICES CLIA# [id number] MARIUSZ JEFFERSON [address] - [place] [address] [place] [address] LABORATORY SERVICES CLIA# [id number] MARIUSZ [place] [address] - [place] [address] [place] [address] * CBC WITH MANUAL DIFFERENTIAL (05/28/2012 9:08 AM CDT) BANDS 10 0 - 22 %Manual [facility] - [place] NEUTROPHILS, 73 (H) 30 - 68 %Manual [facility] LABORATORY SERVICES - [place] LYMPHOCYTES 7 (L) 14 - 50 %Manual [facility] - [place] MONOCYTE 7 0 - 11 %Manual [facility] - [place] ATYPICAL 3 0 - 6 %Manual [facility] LYMPHOC[facility] LABORATORY SERVICES - [place] PLATELET EST. Normal [facility] SERVICES - [place] WBC ESTIMATE Increased [facility] - [place] WBC 14.69 (H) 3.0 - 10.4 x10E3 [facility] - [place] RBC 4.84 4.15 - 5.75 x10E6 [facility] SERVICES - [place] HEMOGLOBIN 13.9 13.8 - 17.4 g/dL [facility] SERVICES - [place] HEMATOCRIT 41.6 38.6 - 49.4 % [facility] - [place] MCV 86.0 79 - 100 fL [facility] - [place] MCH 28.7 28 - 34 pg [facility] - [place] MCHC 33.4 31 - 35 g/dL [facility] LABORATORY SERVICES - [place] RDW 13.4 12.1 - 14.1 % [facility] - [place] PLATELETS 254 148 - 408 x10E3 [facility] LAB[facility] - [place] MPV 7.8 7.4 - 10.6 fL [facility] - [place] NEUTROPHILS 82.9 (H) 43 - 73 % [facility] - [place] LYMPHOCYTES 8.1 (L) 19 - 47 % [facility] - [place] MONOCYTES 8.3 3 - 9 % [facility] SERVICES - [place] EOSINOPHILS 0.5 0 - 6 % [facility] SERVICES - [place] BASOPHILS 0.2 0 - 1.2 % [facility] - [place] NEUTROPHIL 12.18 (H) 1.3 - 7.6 x10E3 [facility] LABORAT[facility] SERVICES - [place] LYMPHOCYTE 1.18 0.6 - 4.9 x10E3 [facility] LABORATORY SERVICES - [facility] [place] MONOCYTE 1.21 (H) 0.1 - 0.9 x10E3 [facility] LABORATORY SERVICES - [facility] [place] EOSINOPHIL 0.08 0.0 - 0.2 x10E3 [facility] LABORATORY SERVICES - [place] BASOPHILS 0.03Comment: [facility]-MARIUSZ LYNN 0 - 0.1 x10E3 [facility]is [facility]OLUTE ACCT#[id number], ,,,, LABORATORY SERVICES - [place] Specimen Blood specimen (specimen) Performing Organization Address City/State/Zipcode Ph one Number [facility] LABORATORY SERVICES CLIA# [id number] [place] [address] - [place] [address] LABORATORY SERVICES CLIA# [id number] [place] [address] - [address] documented in this encounter Visit Diagnoses Diagnosis Status post laparoscopic appendectomy - Primary Other postprocedural status Acute appendicitis Acute appendicitis without mention of p eritonitis Umbilical hernia without mention of obs truction or gangrene documented in this encounter Administered Medications Action Date Dose Rate Site Medication Order MAR Action 05/30/2012 6:58 AM CDT 25 mg bethanechol (URECHOLINE) tablet 25 mg Given 25 mg, Oral, FOUR TIMES DAILY BEFORE MEALS AND AT BEDTIME, First dose on 05/28/12 at 1630, Until Discontinued, Routine 25 mg Given 05/29/2012 9:56 PM CDT 25 mg Given 05/29/2012 4:06 PM CDT 05/30/2012 8:06 AM CDT 50 mg diclofenac sodium (VOLTAREN) tablet 50 Given mg 50 mg, Oral, TWO TIMES DAILY, First dos e on 05/28/12 at 1700, Until Discontinued, Routine 50 mg Given 05/29/2012 4:06 PM CDT 50 mg Given 05/29/2012 7:57 AM CDT 05/28/2012 1:19 PM CDT 25 mg diphenhydrAMINE (BENADRYL) injection 25 Given mg 25 mg, IV, POST-PROCEDURE ONCE PRN, 1 dose, Starting 05/28/12 at 1158, Until 05/28/12 at 1319, Nausea, Routine 05/29/2012 9:56 PM CDT 10 mg ezetimibe (ZETIA) tablet 10 mg Given 10 mg, Oral, DAILY AT BEDTIME, First dose on 05/28/12 at 2100, Until Discontinued, Routine 10 mg Given 05/28/2012 8:02 PM CDT 05/28/2012 9:02 AM CDT 20 mg famotidine PF (PEPCID) 20 mg/2 mL Given injection 20 mg 20 mg, IV, TWO TIMES DAILY, First dose on 05/28/12 at 0900, Until Discontinued, Routine 05/29/2012 4:05 PM CDT 145 mg fenofibrate nanocrystallized (TRICOR) Given tablet 145 mg 145 mg, Oral, DAILY WITH SUPPER, First dose on 05/28/12 at 1700, Until Discontinued, Routine 145 mg Given 05/28/2012 4:11 PM CDT FENTANYL (PF) 50 MCG/ML INJECTION 1 dose, Starting 05/28/12 at 1348, Until 05/28/12 at 1601, Roy OMNICELL: cabinet override, 05/28/2012 10:06 AM CDT 50 mcg fentaNYL PF (SUBLIMAZE) 50 mcg/mL Given injection 50 mcg 50 mcg, IV, ONE TIME ONLY, 1 dose, 05/28/12 at 1000, Stat 05/28/2012 10:54 AM CDT 50 mcg fentaNYL PF (SUBLIMAZE) 50 mcg/mL Given injection 50 mcg 50 mcg, IV, ONE TIME ONLY, 1 dose, 05/28/12 at 1045, Stat 05/30/2012 1:05 AM CDT 50 mcg fentaNYL PF (SUBLIMAZE) 50 mcg/mL Given injection 50 mcg 50 mcg, IV, EVERY 1 HOUR PRN, Starting 05/28/12 at 1336, Until 05/30/12 at 1306, Pain, Moderate, Routine 50 mcg Given 05/29/2012 9:49 PM CDT 50 mcg Given 05/29/2012 6:57 PM CDT 05/29/2012 9:15 AM CDT 75 mcg fentaNYL PF (SUBLIMAZE) 50 mcg/mL Given injection 75 mcg 75 mcg, IV, EVERY 1 HOUR PRN, Starting 05/28/12 at 1336, Until 05/30/12 at 1306, Pain, Severe, Routine 75 mcg Given 05/28/2012 4:01 PM CDT 75 mcg Given 05/28/2012 1:51 PM CDT 05/30/2012 8:06 AM CDT 40 mg FLUoxetine (PROZAC) capsule 40 mg Given 40 mg, Oral, DAILY, First dose on 05/28/12 at 1630, Until Discontinued, Routine 40 mg Given 05/29/2012 8:46 AM CDT 40 mg Given 05/28/2012 5:11 PM CDT 05/29/2012 12:14 PM CDT 20 mg furosemide (LASIX) injection 20 mg Given 20 mg, IV, ONE TIME ONLY, 1 dose, 05/29/12 at 1145, Routine 05/28/2012 9:02 AM CDT 30 mL GI cocktail oral suspension 30 mL Given 30 mL, Oral, ONE TIME ONLY, 1 dose, 05/28/12 at 0845, Stat 05/30/2012 4:57 AM CDT 800 mg ibuprofen (MOTRIN) tablet 800 mg Given 800 mg, Oral, EVERY 8 HOURS PRN, Starting 05/28/12 at 1336, Until 05/30/12 at 1306, Temperature, for fever greater than 101 degrees, Routine 800 mg Given 05/28/2012 6:23 PM CDT 05/29/2012 10:02 PM CDT 20 Units Arm, Rig ht Upper insulin glargine (LANTUS) 100 unit/mL Given injection 20 Units 20 Units, subCUT, DAILY AT BEDTIME, First dose on 05/28/12 at 2100, Unti l Discontinued, Routine 20 Units Arm, Right Upper Given 05/28/2012 8:01 PM CDT 05/30/2012 7:55 AM CDT 4 Units Arm, Rig ht Upper insulin lispro (HUMALOG) 100 unit/mL Given injection subCUT, FOUR TIMES DAILY BEFORE MEALS AND AT BEDTIME, First dose on 05/28/12 at 1700, Until Discontinued, Routine 4 Units Arm, Left Upper Given 05/29/2012 10:02 PM CDT 4 Units Arm, Left Given 05/29/2012 4:17 PM CDT 05/30/2012 8:07 AM CDT 60 mg isosorbide mononitrate SR 24 hour Given (IMDUR) tablet 60 mg 60 mg, Oral, TWO TIMES DAILY, First dos e on 05/28/12 at 2100, Until Discontinued, Routine 60 mg Given 05/29/2012 9:56 PM CDT 60 mg Given 05/29/2012 8:47 AM CDT 05/29/2012 6:47 AM CDT 500 mg 100 mL/hr levofloxacin (LEVAQUIN) 500 mg/100 mL in Given D5W IVPB 500 mg 500 mg, IV, ONE TIME ONLY, 1 dose, 05/29/12 at 0600, Routine 05/28/2012 10:12 AM CDT 750 mg 100 mL/hr levofloxacin (LEVAQUIN) 750 mg/150 mL in Given D5W IVPB 750 mg 750 mg, IV, ONE TIME ONLY, 1 dose, 05/28/12 at 1015, Routine 05/30/2012 8:06 AM CDT 400 mg magnesium oxide (MAG-OX) tablet 400 mg Given 400 mg, Oral, THREE TIMES DAILY, First dose on 05/28/12 at 1500, Until Discontinued, Routine 400 mg Given 05/29/2012 10:11 PM CDT 400 mg Given 05/29/2012 2:14 PM CDT 05/29/2012 8:47 AM CDT 5 mg metoclopramide HCl (REGLAN) injection 5 Given mg 5 mg, IV, EVERY 6 HOURS, First dose on 05/28/12 at 1430, Until Discontinued , Routine 5 mg Given 05/29/2012 3:15 AM CDT 5 mg Given 05/28/2012 8:01 PM CDT 05/30/2012 6:59 AM CDT 5 mg metoclopramide HCl (REGLAN) tablet 5 mg Given 5 mg, Oral, FOUR TIMES DAILY BEFORE MEALS AND AT BEDTIME, First dose on 05/29/12 at 1200, Until Discontinued, Routine 5 mg Given 05/29/2012 9:56 PM CDT 5 mg Given 05/29/2012 4:05 PM CDT 05/30/2012 8:05 AM CDT 25 mg metoprolol succinate ER 24 hour Given (TOPROL-XL) tablet 25 mg 25 mg, Oral, DAILY, First dose on 05/28/12 at 1645, Until Discontinued, Routine 25 mg Given 05/29/2012 8:45 AM CDT 25 mg Given 05/28/2012 5:12 PM CDT 05/28/2012 11:55 AM CDT 500 mg metroNIDAZOLE (FLAGYL) IVPB 500 mg Given 500 mg, IV, ONE TIME ONLY, 1 dose, 05/28/12 at 1015, Routine 05/30/2012 9:34 AM CDT 500 mg metroNIDAZOLE (FLAGYL) IVPB 500 mg Given 500 mg, IV, EVERY 8 HOURS, First dose o n 05/28/12 at 1800, Until Discontinued , Routine 500 mg Given 05/30/2012 2:52 AM CDT 500 mg Given 05/29/2012 5:51 PM CDT 05/30/2012 3:03 AM CDT 0.4 mg nitroglycerin (NITROSTAT) tablet 0.4 mg Given 0.4 mg, Sublingual, EVERY 5 MINUTES PRN , Starting 05/28/12 at 1336, Until 05/30/12 at 1306, Chest Pain, Routine 0.4 mg Given 05/28/2012 1:57 PM CDT 0.4 mg Given 05/28/2012 1:48 PM CDT 05/28/2012 9:02 AM CDT 4 mg ondansetron (ZOFRAN) 4 mg/2 mL injection Given 4 mg 4 mg, IV, ONE TIME ONLY, 1 dose, 05/28/12 at 0845, Stat 05/28/2012 12:55 PM CDT 4 mg ondansetron (ZOFRAN) 4 mg/2 mL injection Given 4 mg 4 mg, IV, POST-PROCEDURE ONCE PRN, 1 dose, Starting 05/28/12 at 1158, Until 05/28/12 at 1255, Nausea/Emesis, Routine 05/29/2012 7:01 PM CDT 4 mg ondansetron (ZOFRAN) 4 mg/2 mL injection Given 4-8 mg 4-8 mg, IV, EVERY 6 HOURS PRN, Starting 05/28/12 at 1336, Until 05/30/12 at 1306, Nausea/Emesis, Routine 05/30/2012 9:35 AM CDT 1 Tablet oxyCODONE-acetaminophen (PERCOCET) Given 10-325 mg per tablet 1 Tab 1 Tablet, Oral, EVERY 4 HOURS PRN, Starting 05/28/12 at 1336, Until 05/30/12 at 1306, Pain, Severe, For Pain Scale 7-10, Routine 1 Tablet Given 05/29/2012 4:04 PM CDT 1 Tablet Given 05/29/2012 12:18 PM CDT 05/30/2012 6:58 AM CDT 40 mg pantoprazole (PROTONIX) tablet 40 mg Given 40 mg, Oral, DAILY BEFORE BREAKFAST, First dose on 05/28/12 at 1630, Unti l Discontinued, Routine, Previous Med: esomeprazole (NEXIUM) 40 mg Oral CpDR - Orig Sig - Take 1 Cap by mouth daily before breakfast. , 40 mg Given 05/29/2012 6:47 AM CDT 40 mg Given 05/28/2012 5:11 PM CDT 05/30/2012 8:06 AM CDT 200 mg phenytoin sodium extended release Given (DILANTIN) capsule 200 mg 200 mg, Oral, TWO TIMES DAILY, First dose on 05/28/12 at 2100, Until Discontinued, Routine 200 mg Given 05/29/2012 9:56 PM CDT 200 mg Given 05/29/2012 8:50 AM CDT 05/29/2012 8:50 AM CDT 30 mg pioglitazone (ACTOS) tablet 30 mg Given 30 mg, Oral, DAILY, First dose on 05/29/12 at 0900, Until Discontinued, Routine 05/30/2012 8:07 AM CDT 17 Grams polyethylene glycol (MIRALAX) packet 17 Given Gram 17 Gram, Oral, DAILY, First dose on 05/29/12 at 1145, Until Discontinued, Routine 17 Grams Given 05/29/2012 12:18 PM CDT 05/30/2012 8:06 AM CDT 10 mg ramipril (ALTACE) capsule 10 mg Given 10 mg, Oral, DAILY, First dose on 05/28/12 at 1645, Until Discontinued, Routine 10 mg Given 05/29/2012 8:49 AM CDT 10 mg Given 05/28/2012 5:12 PM CDT 05/30/2012 9:35 AM CDT 300 mg rifampin (RIFADINE) capsule 300 mg Given 300 mg, Oral, EVERY 12 HOURS (BlD), First dose on 05/28/12 at 2100, Unti l Discontinued, Routine, Previous Med: rifampin (RIFADINE) 300 mg Oral capsule - Orig Sig - Take 1 Cap by mouth every 12 hours. , 300 mg Given 05/29/2012 9:56 PM CDT 300 mg Given 05/29/2012 9:10 AM CDT 05/29/2012 4:06 PM CDT 40 mg simvastatin (ZOCOR) tablet 40 mg Given 40 mg, Oral, DAILY LATE, First dose on [facility] 05/28/12 at 1700, Until Discontinued , Routine 40 mg Given 05/28/2012 4:05 PM CDT 05/28/2012 10:07 AM CDT mL sodium chloride 0.9 % flush injection 3 Given mL 3 mL, IV, TWO TIMES DAILY, First dose o n [facility] 05/28/12 at 0900, Until Discontinued , Routine mL Given 05/28/2012 9:01 AM CDT 05/30/2012 8:06 AM CDT 3 mL sodium chloride 0.9 % flush injection 3 Given mL 3 mL, IV, TWO TIMES DAILY, First dose o n [facility] 05/28/12 at 2100, Until Discontinued , Routine 3 mL Given 05/29/2012 9:00 PM CDT 3 mL Given 05/29/2012 12:15 PM CDT 05/30/2012 1:05 AM CDT 3 mL sodium chloride 0.9 % flush injection 3 Given mL 3 mL, IV, SEE ADMIN INSTRUCTIONS, Starting [facility] 05/28/12 at 1348, Until [facility] 05/30/12 at 1306, Routine 3 mL Given 05/30/2012 12:59 AM CDT 05/29/2012 11:45 AM CDT 3 mL sodium chloride 0.9 % flush injection 3 Given mL 3 mL, IV, TWO TIMES DAILY, First dose o n [facility] 05/29/12 at 1145, Until Discontinued , Routine 05/28/2012 5:13 PM CDT 30 mL/hr sodium chloride 0.9 % infusion Rate Change IV, at 30 mL/hr, CONTINUOUS, Starting [facility] 05/28/12 at 1715, Until [facility] 05/29/12 at 1144, Routine 05/29/2012 5:52 PM CDT 0.4 mg tamsulosin (FLOMAX) capsule 0.4 mg Given 0.4 mg, Oral, DAILY, First dose on [facility] 05/28/12 at 1800, Until Discontinued, Routine 0.4 mg Given 05/28/2012 5:11 PM CDT 05/30/2012 8:07 AM CDT 1 Drop timolol (TIMOPTIC) 0.5 % ophthalmic Given solution 1 Drop 1 Drop, Both Eyes, TWO TIMES DAILY, First dose on [facility] 05/28/12 at 2100, Unti l Discontinued, Routine 1 Drop Given 05/29/2012 9:58 PM CDT 1 Drop Given 05/29/2012 8:51 AM CDT 05/29/2012 9:49 PM CDT 10 mg zolpidem (AMBIEN) tablet 10 mg Given 10 mg, Oral, NIGHTLY PRN, Starting 05/28/12 at 1336, Until 05/30/12 at 1306, Insomnia, Routine documented in this encounter
--- OUTSIDE RECORDS SUMMARY | 2020-03-24 14:35 | XMS REPORT | Encounter Summary ---
Author Author [facility] Organization [facility] Address Unknown Phone Unavailable Care Team Providers Care Customer Engagement Specialist Name Role Phone Shahram Mccallum MD PCP Unavailable Encounter Details Care Team Description Date Type Department Shahram Mccallum MD NO ADDRESS ON FILE [facility] [place] [address] [place] [address] Social History Date Tobacco Use [...] Associated Diag nosis XR FOOT 3+ VW RIGHT Routine 06/17/2012 Right foot pain 9:43 AM CDT documented in this encounter Results * XR FOOT 3+ VW RIGHT (06/17/2012 9:43 AM CDT) Specimen Impressions Performed At Impression: Normal foot. INTERFACE SYSTEM Narrative Performed At Right Foot INTERFACE SYSTEM Clinical indication: Pain. 3 views were obtained. Findings: There are no fractures or d islocations seen. No bony masses are noted. Procedure Note Interface, [facility] Incoming Radiology Results - 06/17/2012 10:32 AM CDT Right Foot Clinical indication: Pain. 3 views were obtained. Findings: There are no fractures or dislocations seen. No bony masses are noted. IMPRESSION Impression: Normal foot. Performing Organization Address City/State/Zipcode Ph one Number INTERFACE SYSTEM INTERFACE SYSTEM Refer to clinic/hospital department documented in this encounter Visit Diagnoses Diagnosis Right foot pain Pain in limb documented in this encounter
--- OUTSIDE RECORDS SUMMARY | 2020-03-24 14:35 | XMS REPORT | Encounter Summary ---
Author Author [facility] Organization [facility] Address Unknown Phone Unavailable Care Team Providers Care Data Management Associate Name Role Phone Shahram Mccallum MD PCP Unavailable Reason for Referral * Outpatient Services (Routine) Referred By Contact Referred To Contact Status Reason Specialty Diagnoses / Procedures Shahram Mccallum MD NO ADDRESS ON FILE [facility] Ultrasound [address] [place] [address] Closed Radiology Diagnoses Peripheral vascular disease, unspecified P rocedures US DUPLEX ARTERIAL LEG RIGHT Encounter Details Care Team Description Date Type Department MallyRosalinda Peripheral vascular disease, unspecified (Primary Dx) 07/01/2012 Orders Only [facility] Primar y Care [place] [address] [place] [address] Social History Date Tobacco Use [...] as of this encounter Results * US DUPLEX ARTERIAL [...] Diagnoses Diagnosis Peripheral vascular disease, unspecifie d - Primary documented in this encounter
--- OUTSIDE RECORDS SUMMARY | 2020-03-24 14:35 | XMS REPORT | Encounter Summary ---
Author Author [facility] Organization [facility] Address Unknown Phone Unavailable Care Team Providers Care Director Of Media Name Role Phone Shahram Mccallum MD PCP Unavailable Reason for Visit * Reason Comments Foot Pain rt foot and leg painful and swelling Encounter Details Care Team Description Date Type Department Shahram Mccallum MD NO ADDRESS ON FILE Right foot pain (Primary Dx) 06/17/2012 Office Visit [facility]ar [facility] [address] [place] [address] Social History Date Tobacco Use [...] Signs Reading Time Taken Comments Vital Sign 144/78 06/17/2012 9:17 AM CDT Blood Pressure 64 06/17/2012 9:17 AM CDT Pulse - - Temperature - - Respiratory Rate - - Oxygen Saturation - - Inhaled Oxygen Concentration 100.7 kg (222 lb) 06/17/2012 9:17 AM CDT Weight 167.6 cm (5' 6") 06/17/2012 9:17 AM CDT Height 35.83 06/17/2012 9:17 AM CDT Body Mass Index documented in this encounter Progress Notes * Shahram Mccallum MD - 06/20/2012 8:17 AM CDT Subjective: lOiverio Dalton is a 61 y.o. male. Patient [...] of the following (by systems): Arthritis symptoms: recent acute onset / progressive onset R foot pain and ?? mi ld swelling foot and lower leg. no distinct injury . no other systemic related sxs. Review of Systems: ROS Denies all of the following acutely changed except as above: Headache Dizziness Chest pain Shortness of breath Bowel changes Bladder changes Pain in muscle or joints Exam/Objective: Normal Exam for Routine Visits: \\Blood pressure 144/78, pulse 64, height 5' 6" ( 1.676 m), weight 222 lb (100.699 kg). General appearance: active, alert, cooperative, social, normally nourished, and in no acute distress Lungs: breath sounds equal, clear to auscultation bilaterally, no retractions, n o stridor, normal respiratory effort Heart: regular rate and rhythm, S1, S2 normal, no murmur, click, rub, gallop, or abnormal sounds. Abdomen: soft, non-tender. Bowel sounds normal. No masses, no organomegaly. Ac tive bowel sounds. Extremities: symmetrical trace edematous. wash tank tender distal metatarsals at bas e of toes but not swollen, red, bruised. xr neg. Neg cords or callie Assessment and Plan: ASSESSMENT: Encounter Diagnosis Name Primary? Right foot pain Yes PLAN: Orders Placed This Encounter XR FOOT 3+ VW RIGHT limit wt bearing, elevate, ice / wmp Appropriate medications prescribed (see detailed AVS). Appropriate [...] bony masses are noted. Procedure Note Interface, [facility] Incoming Radiology Results - 06/17/2012 10:32 [...]
--- OUTSIDE RECORDS SUMMARY | 2020-03-24 14:35 | XMS REPORT | Encounter Summary ---
Author Author [facility] Organization [facility] Address Unknown Phone Unavailable Care Team Providers Care Heel Edge Inker Machine Name Role Phone Shahram Mccallum MD PCP Unavailable Reason for Visit * Reason Comments Post-op With No Problems po lap appendectomy Encounter Details Care Team Description Date Type Department Mary Zhou MD NO ADDRESS ON FILE Status post laparoscopic appendectomy (P rimary Dx) 06/06/2012 Office Visit [address] [address] Social History Date Tobacco Use [...] Signs Reading Time Taken Comments Vital Sign 120/58 06/07/2012 8:21 AM CDT Blood Pressure 64 06/07/2012 8:21 AM CDT Pulse 36.4 C (97.6 F) 06/07/2012 8:21 AM CDT Temperature - - Respiratory Rate - - Oxygen Saturation - - Inhaled Oxygen Concentration - - Weight - - Height - - Body Mass Index documented in this encounter Progress Notes * Mary Zhou MD - 06/07/2012 4:29 PM CDT Subjective: Patient no new complaints. Current Outpatient Prescriptions Medication Sig Dispense Refill zolpidem (AMBIEN) 10 mg Oral tablet Take 1 Tab by mouth nightly as needed fo r Insomnia. 30 Tab 2 oxyCODONE-acetaminophen (PERCOCET) 10-325 mg Oral Tab Take 0.5-1 Tabs by henrik th every 4 hours as needed for Pain or Pain, Severe. 40 Tab 0 metoclopramide HCl (REGLAN) 5 mg Oral tablet Take 1 Tab by mouth 4 times conor ly before meals and at bedtime. 30 Tab 0 polyethylene glycol (MIRALAX) 17 gram Oral PwPk Take 1 Packet by mouth daily for 30 days. 30 Packet 3 levofloxacin (LEVAQUIN) 500 mg Oral tablet Take 1 Tab by mouth daily for 7 d ays. 7 Tab 0 metroNIDAZOLE (FLAGYL) 250 mg Oral tablet Take 1 Tab by mouth 3 times daily for 7 days. 21 Tab 0 pioglitazone (ACTOS) 30 mg Oral [...] 4 hours as needed for P ain. Objective: BP 120/58 | Pulse 64 | Temp 97.6 F (36.4 C) General appearance: alert, in no distress Abdomen: Soft, non-tender. Bowel sounds normal. No masses, no organomegaly. In cisions closed, clean and dry. Results for orders placed during the hospital encounter of 05/28/12 (from [facility] [place] 336 hour(s)) CT ABDOMEN PELVIS WO CONTRAST Collection Time 05/28/12 9:00 AM Narrative: CT abdomen pelvis without contrast INDICATION: Right [...] structures suggesting appendicitis. No other pelvic abnormality. Impression: IMPRESSION: Findings suggest appendicitis. Left 1.2 cm renal pelvis calculi noted. No significant obstruction. CBC WITH MANUAL DIFFERENTIAL Collection Time 05/28/12 [...] 31 16 - 97 (ng/ml) Narrative: CARDIAC NYLA-0HR NYLA-0 HR from 0721:[id number]. CARDIAC TROP-0HR TROP-0 HR from 07:[id number]. TROPONIN Collection Time 05/28/12 9:08 AM Component Value Range TROPONIN I 0.05 0 - 0.4 (ng/ml) Narrative: CARDIAC NYLA-0HR NYLA-0 HR from 0721:[id number]. CARDIAC TROP-0HR TROP-0 HR from 07:[id number]. XR CHEST PA OR AP Collection Time 05/28/12 10:25 AM Narrative: Chest one view Indication: Fever. Comparison with 05/14/2012. Prior midline sternotomy. Changes of COPD. Cardiac size and mediastinal structures similar in appearance. No evidence of pneumonia or pleural effusion or pneumothorax. Mild scarring left lung base. Impression: IMPRESSION: No acute abnormality identified in the chest. MYOGLOBIN Collection Time 05/28/12 12:55 PM Component Value Range MYOGLOBIN, PLASMA 51 16 - 97 (ng/ml) Narrative: CARDIAC NYLA-3HR NYLA-3 HR from 0721:[id number]. CARDIAC TROP-3HR TROP-3 HR from 720:[id number]. CARDIAC Interim: CAR3 from 720:[id number]. TROPONIN Collection Time 05/28/12 12:55 PM Component Value Range TROPONIN I 0.08 0 - 0.4 (ng/ml) Narrative: CARDIAC NYLA-3HR NYLA-3 HR from 720:[id number]. CARDIAC TROP-3HR TROP-3 HR from 720:[id number]. CARDIAC Interim: CAR3 from 720:[id number]. CARDIAC INTERPRETATION (3 HR) Collection Time 05/28/12 12:55 PM Component Value Range INTERPRETATION Test not performed Narrative: CARDIAC NYLA-3HR NYLA-3 HR from 720:[id number]. CARDIAC TROP-3HR TROP-3 HR from 720:[id number]. CARDIAC Interim: CAR3 from 720:[id number]. TROPONIN Collection Time 05/28/12 3:45 PM Component Value Range TROPONIN I 0.08 0 - 0.4 (ng/ml) Narrative: CARDIAC TROP-6HR TROP-6 HR from 720:[id number]. CARDIAC Interim: CAR6 from 720:[id number]. CARDIAC INTERPRETATION (6 HR) Collection Time 05/28/12 3:45 PM Component Value Range INTERPRETATION Test not performed Narrative: CARDIAC TROP-6HR TROP-6 HR from 720:[id number]. CARDIAC Interim: CAR6 from 720:[id number]. POC GLUCOSE Collection Time 05/28/12 4:56 PM Component Value Range POC GLUCOSE 168 (*) 70 - 110 (mg/dl) POC GLUCOSE GRAPH VALUE 168 (*) 70 - 110 (mg/dl) PATHOLOGY Collection Time 05/28/12 6:17 PM Component Value Range SURGICAL PATHOLOGY Value: Name: OLIVERIO DALTON : 48 Location: [facility] Sex: M Unit#: [id number] Room/Bed: [place] [address] Ordering Physician: Mary Zhou M.D. RECD: 05/28/121618 PROCEDURE DATE: 05/28/[address]: Mary Zhou M.D. OTHR DR: ICD CODES: 540.9 PROCEDURES: [id number] LOCATION: [facility] EPIC MATERIAL SUBMITTED Appendix. CLINICAL DIAGNOSIS: Acute appendicitis, umbilical hernia. Procedure: Lapar oscopic appendectomy and umbilical hernia repair. Technical component performed at [facility], [address] [place] [address]. GROSS DESCRIPTION The specimen is labeled appendix. Received in formalin is a specimen recogni zed grossly as appendix with attached periappendiceal fat. The appendix measures 7.5 cm in length by up to 1.4 cm in diameter. There is exudate over the distal end of the appendix and the distal 80% of the appendix is discolored, brown to red, focally fluctuant. Metal st aples are present across the proximal end. Abundant periappendiceal fat is present delmi suring 6.5x2.4x1.7 cm. Perforation is not recognized grossly. The lumen appears pa tent along the length of the appendix. Medical Secretary Teacher sections submitted in one cassette. Dictated by:Mahsa Bernard M.D., V. TD:05/30/12847 FSRACHIDG MICROSCOPIC DESCRIPTION Sections reveal ulcerations of the colonic mucosa lining the appendix lumen. There is abundant acute inflammatory exudate filling the lumen and extending through t he appendix wall, onto the serosal surface. Perforation is not recognized. Dictated by:Mahsa Bernard M.D., V. TD:05/30/121452 RODOLFO FINAL DIAGNOSIS Appendix: Acute appendicitis. Dictated by: Mahsa Bernard M.D., V. TD:05/30/121452 FSNARGIS Signed (electronic signature) David Bernard M.D. 05/30 0801 END OF REPORT POC GLUCOSE Collection Time 05/28/12 7:57 PM Component Value Range POC GLUCOSE 140 (*) 70 - 110 (mg/dl) POC GLUCOSE GRAPH VALUE 140 (*) 70 - 110 (mg/dl) CARDIAC ENZYMES Collection Time 05/28/12 9:50 PM Component Value Range INTERPRETATION See below. Narrative: CARDIAC TROP-12HR TROP-12 HR from 720:[id number]. CARDIAC Final: FINAL from 720:[id number]. TROPONIN Collection Time 05/28/12 9:50 PM Component Value Range TROPONIN I 0.27 0 - 0.4 (ng/ml) Narrative: CARDIAC TROP-12HR TROP-12 HR from 0721:[id number]. CARDIAC Final: FINAL from 0721:[id number]. POC GLUCOSE Collection Time 05/28/12 11:29 PM [...] VALUE 152 (*) 70 - 110 (mg/dl) POC GLUCOSE Collection Time 05/29/12 4:15 PM Component Value Range POC GLUCOSE 194 (*) 70 - 110 (mg/dl) POC GLUCOSE GRAPH VALUE 194 (*) 70 - 110 (mg/dl) POC GLUCOSE Collection Time 05/29/12 10:00 PM Component Value Range POC GLUCOSE 160 (*) 70 - 110 (mg/dl) POC GLUCOSE GRAPH VALUE 160 (*) 70 - 110 (mg/dl) POC GLUCOSE Collection Time 05/30/12 7:02 AM Component Value Range POC GLUCOSE 180 (*) 70 - 110 (mg/dl) POC GLUCOSE GRAPH VALUE 180 (*) 70 - 110 (mg/dl) Assessment: Status post laparoscopic appendectomy, no complications. Plan: [place] removed today. Follow up as needed. documented in this encounter Plan of Treatment Not on filedocumented as of this encounter Visit Diagnoses Diagnosis Status post laparoscopic appendectomy - Primary Other postprocedural status documented in this encounter"
--- OUTSIDE RECORDS SUMMARY | 2020-03-24 14:35 | XMS REPORT | Encounter Summary ---
Author Author [facility] Organization [facility] Address Unknown Phone Unavailable Care Team Providers Care Analysis Evaluator Name Role Phone Shahram Mccallum MD PCP Unavailable Encounter Details Care Team Description Date Type Department Shahram Mccallum MD NO ADDRESS ON FILE [facility], Lab Schedule 06/23/2012 [facility] General Encounter Laboratory Services [address] [address] Social History Date Tobacco Use [...] Date/Time Associated Diag nosis URIC ACID Routine 06/23/2012 Right foot pain 10:48 AM CDT documented in this encounter Results * URIC ACID (06/23/2012 10:48 AM CDT) URIC ACID 4.1Comment: GAB JUAN 3.5 - 7.2 mg/dl [facility] ACCT#[id number], ,,,, LABORATORY SERVICES - [place] Specimen Blood specimen (specimen) Performing Organization Address City/State/[facility] Ph one Number [facility] LABORATORY SERVICES CLIA# [id number] [place], [place] [address] [address] LABORATORY SERVICES CLIA# [id number] [place] [address] - [address] documented in this encounter Visit Diagnoses Diagnosis Right foot pain Pain in limb documented in this encounter
--- OUTSIDE RECORDS SUMMARY | 2020-03-24 14:35 | XMS REPORT | Encounter Summary ---
Author Author [facility] Organization [facility] Address Unknown Phone Unavailable Care Team Providers Care Technical Support Engineer Name Role Phone Shahram Mccallum MD PCP Unavailable Encounter Details Care Team Description Date Type Department Rosalinda Bal 06/30/2012 Orders Only [facility] Primar y Care [place] [address] [place] [phone] Social History Date Tobacco Use Types Packs/Day [...]
--- OUTSIDE RECORDS SUMMARY | 2020-03-24 14:36 | XMS REPORT | Encounter Summary ---
Author Author [facility] Organization [facility] Address Unknown Phone Unavailable Care Team Providers Care Etched Circuit Processor Name Role Phone Shahram Mccallum MD PCP Unavailable Reason for Visit * Reason Comments Medication Refill Encounter Details Care Team Description Date Type Department Shahram Mccallum MD NO ADDRESS ON FILE 05/03/2012 Refill [facility] Primar y Care [address] [phone] Social History Date Tobacco Use Types Packs/Day [...]
--- OUTSIDE RECORDS SUMMARY | 2020-03-24 14:36 | XMS REPORT | Encounter Summary ---
Author Author [facility] Organization [facility] Address Unknown Phone Unavailable Care Team Providers Care Crib Pad Maker Name Role Phone Shahram Mccallum MD PCP Unavailable Reason for Visit * Reason Comments Medication Question rash after starting doxycyc line, stopped antibiotic Encounter Details Care Team Description Date Type Department Rosalinda Bal Medication Question (rash after starting doxycycline, stopped antibiotic) 04/26/2012 Telephone [facility] Primar y Care [place] [address] [place] [address] Social History Date Tobacco Use [...] * Telephone Encounter - Rosalinda Bal - 04/26/2012 12:11 PM CDT Doxycycline added to allergy list due to rash. documented in this encounter Plan of Treatment Not on filedocumented as of this encounter Visit Diagnoses Not on filedocumented in this encounter
--- OUTSIDE RECORDS SUMMARY | 2020-03-24 14:36 | XMS REPORT | Encounter Summary ---
Author Author [facility] Organization [facility] Address Unknown Phone Unavailable Care Team Providers Care Perfume Compounder Name Role Phone Shahram Mccallum MD PCP Unavailable Reason for Visit * Reason Comments Medication Refill Encounter Details Care Team Description Date Type Department Shahram Mccallum MD NO ADDRESS ON FILE 04/26/[address] [facility] Primar y Care [address] [phone] Social History Date Tobacco Use Types Packs/Day [...]
--- OUTSIDE RECORDS SUMMARY | 2020-03-24 14:36 | XMS REPORT | Encounter Summary ---
Author Author [facility] Organization [facility] Address Unknown Phone Unavailable Care Team Providers Care Magnetic Observer Name Role Phone Shahram Mccallum MD PCP Unavailable Reason for Visit * Reason Comments Epigastric Pain epigastric sharp pressure r adiating up into lower mid chest. started earlier this morning. reports increase in chronic dyspnea and nausea without emisis. Encounter Details Care Team Description Date Type Department Kentrell Severino MD NO ADDRESS ON FILE Abdominal pain, epigastric; Vomiting 05/14/2012 Emergency [facility] Emergency Department [address] [id number] Social History Date Tobacco Use Types Packs/Day [...] Signs Reading Time Taken Comments Vital Sign 122/65 05/14/2012 9:50 AM CDT Blood Pressure 45 05/14/2012 11:00 AM CDT Pulse - - Temperature 24 05/14/2012 9:08 AM CDT Respiratory Rate 100% 05/14/2012 11:00 AM CDT Oxygen Saturation - - Inhaled Oxygen Concentration 102.1 kg (225 lb) 05/14/2012 9:08 AM CDT Weight 167.6 cm (5' 6") 05/14/2012 9:08 AM CDT Height 36.32 05/14/2012 9:08 AM CDT Body Mass Index documented in this encounter Discharge Instructions * Patient Instructions* Rajan Duque - 05/16/2012 1:56 PM CDT Electronically signed by Interface, Bong Aok Transcriptions Incoming at 2 1:56 PM CDT * Additional Instructions* Kentrell Severino MD - 05/14/2012 use Maalox as needed for unrelieved stomach pain. If a significant change in co ndition occurs see Dr Mccallum or return to ER. documented in this encounter Medications at Time of Discharge Start Date End Date Medication Sig Dispensed Refills 12/29/2007 BETIMOL 0.5 % OP Drop Administer 1 0 Drop in both eyes 2 times daily. 06/30/2011 08/10/2012 FLUoxetine (PROZAC) 20 mg Take 20 mg by 0 Oral capsule mouth daily. 05/03/2012 05/31/2012 zolpidem (AMBIEN) 10 mg Take [...] pm prn documented as of this encounter Procedure Notes * Aok Scanning, [facility] - 05/16/2012 2:21 PM CDT Associated Order(s): EKG 12-LEAD Electronically signed by Sienna, Bong Aok Transcriptions Incoming at 2 2:21 PM CDT * David Ferrer MD - 05/16/2012 1:12 PM CDT Associated Order(s): EKG 12-LEAD [facility] [address] [place] [address]. [place], [place] [address] EKG OLIVERIO DALTON [id number] 05/14/12 at 0906. The rhythm is slow, regular, sinus in origin with a rate of 43 beats per minute. T waves are inverte d in lateral limb leads. Compared with previous tracing dated December 12 2011, the rate has slowed currently. Complexes are similar. Diagnosis: 1) Sinus jana cardia, rate 43 beats per minute. 2) Nonspecific T wave changes. Dictated by Debbie. Dictated by: EKG DD 05/16/12 TD 05/16/12/LRG EKG REPORT # [id number] ORDER # documented in this encounter ED Notes * Jennifer Michele RN - 05/14/2012 1:36 PM CDT Pt provided discharge instructions related to diagnosis with opportunity given f or patient to ask questions. Questions answered and pt verbalized understanding of discharge instructions to include follow-up process. Pt ambulatory out of E R. * Jennifer Michele RN - 05/14/2012 1:23 PM CDT Pt has been sleeping on cart in no acute distress. Dr. Severino in to talk w/ pt about test results and treatment disposition. * Jennifer Michele RN - 05/14/2012 10:07 AM CDT Pt reports his pain continues to come and go but is slightly better. * Kentrell Severino MD - 05/14/2012 9:24 AM CDT HISTORY OF PRESENT ILLNESS Oliverio Dalton, a 61 y.o. male presents to the ED with a Chief Complaint of Ep igastric Pain Was feeling fine last evening and thru the night but awoke this morning with epi gastric pain and bloating, a pressure in upper abd and lower chest and a feeling like he couldn't get his breath. Did not take any NTG, but on the May 11, when he was out in the heat, he had some chest pain and shortness of breath relieved by NTG. Has known CAD, and came to ER to be checked. Has dry heaved a couple of times without complete relief. Has some chronic dyspnea problems related to ob esity and CAD. Patient is a 61 y.o. male presenting with epigastric pain. The history is provid ed by the patient. Epigastric Pain The primary symptoms of the illness include abdominal pain, shortness of breath, nausea and vomiting. The primary symptoms of the illness do not include fever or diarrhea. The current episode started 3 to 5 hours ago. The onset of the illness was gradual. The problem has not changed since onset. The patient has not had a change in bowel habit. Symptoms associated with the il lness do not include chills, diaphoresis, heartburn or constipation. Significant associated medical issues include diabetes and cardiac disease. REVIEW OF SYSTEMS Review of Systems Constitutional: Negative for fever, chills and diaphoresis. Respiratory: Positive for chest tightness and shortness of breath. Negative for cough. Gastrointestinal: Positive for nausea, vomiting and abdominal pain. Negative for heartburn, diarrhea and constipation. Genitourinary: Negative for flank pain. PAST MEDICAL HISTORY REVIEWED Past Medical [...] Pr colonoscopy,diagnostic 02/01/2009 COLONOSCOPY performed by BEULAH MOORE at [facility] OR hernia repair 1988 And age [...] Patient Active Problem List Diagnoses Date Noted MRSA (methicillin resistant staph aureus) culture positive [...] this Encounter PHYSICAL EXAM Initial Vitals BP 05/14/12 0908 162/70 mmHg Pulse 05/14/12 0908 44 Resp 05/14/12907 24 Temp -- Temp src -- SpO2 05/14/12907 98 % Physical Exam Nursing note and [...] Soft. Bowel sounds are normal. He exhibits distension. He exhibits no mass. There is tenderness. A little tender in the epigastric area Musculoskeletal: Normal range of motion. He exhibits [...] the hospital encounter of 05/14/12 (from the [facility] 24 hour(s)) COMPREHENSIVE METABOLIC PANEL Component Value Range GLUCOSE 147 (*) 70 - 100 (mg/dl) BUN 23.0 (*) 7 - 20 (mg/dl) CREATININE 1.10 0.8 - 1.3 (mg/dl) BUN/CREAT RATIO 20.9 (*) 10 - 20 GFR 72 >60 (ml/min) SODIUM 133 (*) 134 - 145 (mmol/L) POTASSIUM 4.8 3.3 - 4.8 (mmol/L) CHLORIDE 98 98 - 107 (mmol/L) CO2 24.1 22 - 31 (mmol/L) ANION GAP 16 4 - 20 CALCIUM 8.9 8.5 - 10.1 (mg/dl) ALBUMIN 4.0 3.4 - 5.0 (g/dl) TOTAL PROTEIN 7.5 6.4 - 8.2 (g/dl) GLOBULIN (CALC) 3.5 ALBUMIN/GLOBULIN RATIO 1.1 BILIRUBIN TOTAL 0.4 <1.1 (mg/dl) ALKALINE PHOSPHATASE 67 50 - 136 (IU/L) AST 20 10 - 40 (IU/L) ALT 37 25 - 70 (IU/L) CBC WITH DIFFERENTIAL Component Value Range WBC 8.74 3.0 - 10.4 (x10E3) RBC 5.08 4.15 - 5.75 (x10E6) HEMOGLOBIN 14.7 13.8 - 17.4 (g/dL) HEMATOCRIT 43.3 38.6 - 49.4 (%) MCV 85.2 79 - 100 (fL) MCH 28.8 28 - 34 (pg) MCHC 33.9 31 - 35 (g/dL) RDW 13.5 12.1 - 14.1 (%) PLATELETS 335 148 - 408 (x10E3) MPV 8.1 7.4 - 10.6 (fL) NEUTROPHILS 65.3 43 - 73 (%) LYMPHOCYTES 27.1 19 - 47 (%) MONOCYTES 5.0 3 - 9 (%) EOSINOPHILS 2.0 0 - 6 (%) BASOPHILS 0.6 0 - 1.2 (%) NEUTROPHIL ABSOLUTE 5.71 1.3 - 7.6 (x10E3) LYMPHOCYTE ABSOLUTE 2.37 0.6 - 4.9 (x10E3) MONOCYTE ABSOLUTE 0.44 0.1 - 0.9 (x10E3) EOSINOPHIL ABSOLUTE 0.18 0.0 - 0.2 (x10E3) BASOPHILS ABSOLUTE 0.05 0 - 0.1 (x10E3) PROTIME-INR Component Value Range PROTIME 11.9 (*) 10.1 - 11.5 (Sec) INR 1.10 (*) 2.0 - 3.0 BRAIN NATRIURETIC PEPTIDE, BNP OR PROBNP Component Value Range BRAIN NATRIURETIC PEPTIDE 139 (*) 0 - 125 (pg/ml) MYOGLOBIN Component Value Range MYOGLOBIN, PLASMA 48 16 - 97 (ng/ml) TROPONIN Component Value Range TROPONIN I 0.11 0 - 0.4 (ng/ml) RADIOLOGY: XR CHEST PA OR AP (Results Pending) EKG: no acute changes noted PROCEDURES Procedures REEVALUATION MEDICAL DECISION MAKING AND PLAN OF CARE . New Prescriptions for this Encounter Last vitals BP 122/65 | Pulse 46 | Resp 24 | Ht 5' 6" (1.676 m) | Wt 102.059 kg | BMI 36.32 kg/m2 | SpO2 99% Coding CLINICAL IMPRESSION Encounter Diagnoses Code Name Primary? 789.06 Abdominal pain, epigastric 787.03 Vomiting CASE DISCUSSED PATIENT COUNSELING Diagnostics reviewed and questions answered. Diagnosis, treatment options and p brianna of care discussed with understanding verbalized. DISPOSITION, EDUCATION AND MEDICATION RECONCILIATION Medications reconciled. See after visit summary for patient education on discha rged patients. Will give NTG as BP elevated, Zofran for nausea and check cardiac enzymes 1030A--feeling better. Will await three hour enzyme. Initials were reassuring. 130 PM feeling back to normal. No chest pain or epigastric distress. Discussed o ptions and with three hour enzyme negative unlikely to have had myocardial damag e. He would prefer to go home. To use Maalox as needed for unrelieved stomach pa in. If a significant change in condition occurs see Dr Mccallum or return to ER. documented in this encounter Plan of Treatment Not on filedocumented as of this encounter Procedures Comments Procedure Name Priority Date/Time Associated Diag nosis EKG 12-LEAD Stat 05/16/2012 2:21 PM CDT CARDIAC ENZYMES Stat 05/14/2012 9:25 PM CDT TROPONIN Stat 05/14/2012 9:25 PM CDT CARDIAC INTERPRETATION (6 Stat 05/14/2012 HR) 3:25 PM CDT TROPONIN Stat 05/14/2012 3:25 PM CDT CARDIAC INTERPRETATION (3 Stat 05/14/2012 HR) 12:28 PM CDT TROPONIN Stat 05/14/2012 12:28 PM CDT MYOGLOBIN Stat 05/14/2012 12:28 PM CDT XR CHEST PA OR AP 1 VW Stat 05/14/2012 9:39 AM CDT CBC WITH DIFFERENTIAL Stat 05/14/2012 9:15 AM CDT PROTIME-INR Stat 05/14/2012 9:15 AM CDT TROPONIN Stat 05/14/2012 9:15 AM CDT BRAIN NATRIURETIC Stat 05/14/2012 PEPTIDE, BNP OR PROBNP 9:15 AM CDT MYOGLOBIN Stat 05/14/2012 9:15 AM CDT COMPREHENSIVE METABOLIC Stat 05/14/2012 PANEL 9:15 AM CDT documented in this encounter Results * EKG 12-LEAD (05/16/2012 2:21 PM CDT) Narrative Performed At This result has an attachment that is n ot available. Transcriptions David Bernard MD - 05/16/2012 1:12 PM CDT [facility]. [address] [place] [address]. [place], [place] [address] EKG OLIVERIO DALTON [id number] 05/14/12 at 0906. The rhythm is slow, regular, sinus in origin with a rate of 43 beats per minute. T waves are inverted in lateral limb leads. Compared with previous tracing dated December 12 2011, the rate has slowed currently. Complexes are similar. Diagnosis: 1) Sinus bradycardia, rate 43 beats per minute. 2) Nonspecific T wave changes. Dictated by S.V.W. Dictated by: EKG DD 05/16/12 TD 05/16/12/LRG EKG REPORT # [id number] ORDER # 05/16/2012 2:21 PM CDT * TROPONIN (05/14/2012 9:25 PM CDT) TROPONIN I Test not performedComment: 0 - 0.4 ng/ml [facility] [place] [facility] ACCT#[id number], ,,,, SERVICES - PA MCKINNEY Specimen Narrative Performed At CARDIAC TROP-12HR TROP-12 HR from [id number]. [facility] LABORATORY CARDIAC Final: FINAL from [id number]. SERVICES - PA MCKINNEY Performing Organization Address City/State/Zipcode Ph one Number [facility] LABORATORY SERVICES CLIA# [id number] [facility] [place] [address] [address] LABORATORY SERVICES CLIA# [id number] [place] [address] - [address] * CARDIAC ENZYMES (05/14/2012 9:25 PM CDT) INTERPRETATION See below. [facility] Comment: LABORATORY INTERPRETATION - 05/15/12 1013 SERVICES [facility] Normal cardiac marker results FAYE through three hours. Linda Elise. GAB JUAN ACCT#[id number], ,,,, Specimen Blood specimen (specimen) Narrative Performed At CARDIAC TROP-12HR TROP-12 HR from [id number]. [facility] LABORATORY CARDIAC Final: FINAL from [id number]. ANAND Rochelle MCKINNEY Performing Organization Address [facility] one [facility] LABORATORY SERVICES CLIA# [id number] GAB JEFFERSON [address] LABORATORY SERVICES CLIA# [id number] [place] [address] * CARDIAC INTERPRETATION (6 HR) (05/14/2012 3:25 PM CDT) INTERPRETATION Test not performedComment: [facility] LAB[facility] ACCT#[id number], ,,,, SERVICES - [facility] FAYE Specimen Narrative Performed At CARDIAC TROP-6HR TROP-6 HR from [id number]. [facility] CARDIAC Interim: CAR6 from [id number]. ANAND Rochelle MCKINNEY Performing Organization Address [facility] one [facility] LABORATORY SERVICES CLIA# [id number] GAB JEFFERSON [address] LABORATORY SERVICES CLIA# [id number] [place] [address] * TROPONIN (05/14/2012 3:25 PM CDT) TROPONIN I Test not performedComment: 0 - 0.4 ng/ml [facility] LABORATORY ACCT#[id number], ,,,, SERVICES - [place] MCKINNEY Specimen Narrative Performed At CARDIAC TROP-6HR TROP-6 HR from [id number]. [facility] CARDIAC Interim: CAR6 from [id number]. ANAND PA MCKINNEY Performing Organization Address [facility] one [facility] LABORATORY SERVICES CLIA# [id number] PA MCK[place]NEY [place] [address] LABORATORY SERVICES CLIA# [id number] [place] [address] * CARDIAC INTERPRETATION (3 HR) (05/14/2012 12:28 PM CDT) INTERPRETATION Test not performedComment: [place] LABORATORY ACCT#[id number], ,,,, SERVICES - [place] Specimen Narrative Performed At CARDIAC NYLA-3HR NYLA-3 HR from [id number]. [facility] ABORATORY CARDIAC TROP-3HR TROP-3 HR from [id number]. SERVI [facility] CARDIAC Interim: CAR3 from [id number]. FAYE Performing Organization Address [facility] Ph one [facility] LABORATORY SERVICES CLIA# [id number] PA MCK[place] [facility] [phone] LABORATORY SERVICES CLIA# [id number] [place] [address] * TROPONIN (05/14/2012 12:28 PM CDT) TROPONIN I LESS THAN 0.04Comment: 0 - 0.4 ng/ml [facility] [place] LAB[facility] ACCT#[id number], ,,,, SERVICES - [place] Specimen Narrative Performed At CARDIAC NYLA-3HR NYLA-3 HR from [id number]. [facility] ABORATORY CARDIAC TROP-3HR TROP-3 HR from [id number]. SERVI [facility] CARDIAC Interim: CAR3 from [id number]. FAYE Performing Organization Address City/[facility] Ph one [facility] LABORATORY SERVICES CLIA# [id number] [place] MCK[facility] [facility] [phone] LABORATORY SERVICES CLIA# [id number] [place] [address] * MYOGLOBIN (05/14/2012 12:28 PM CDT) MYOGLOBIN, 36Comment: GAB JUAN 16 - 97 ng/ml M ERCY PLASMA ACCT#[id number], ,,,, LABORATORY SERVICES - [place] MCKINNEY Specimen Narrative Performed At CARDIAC NYLA-3HR NYLA-3 HR from [id number]. [facility] AB[facility]ATORY CARDIAC TROP-3HR TROP-3 HR from [id number]. [facility] CARDIAC Interim: CAR3 from [id number]. FAYE Performing Organization Address [facility] one Number [facility] LABORATORY SERVICES CLIA# [id number] GAB JEFFERSON [address] - [facility] FAYE [address] [place] [address] LABORATORY SERVICES CLIA# [id number] GAB JEFFERSON [address] [address] * XR CHEST PA OR AP (05/14/2012 9:39 AM CDT) Specimen Impressions Performed At Impression: No acute cardiopulmonary disease. INTE RFACE SYSTEM Narrative Performed At AP or PA chest INTERFACE SYSTEM Comparison: December 12 Clinical history: Chest pain. Findings: The cardiac silhouette and pulmonary vascularity are within normal limits. There are no infiltrat es or masses seen. No evidence of pneumothorax. The patient is status post median sternotomy. Procedure Note Interface, [facility] Aok Incoming Radiology Results - 05/16/2012 9:55 AM CDT AP or PA chest Comparison: December 12 Clinical history: Chest pain. Findings: The cardiac silhouette and pulmonary vascularity are within normal limits. There are no infiltrates or masses seen. No evidence of pneumothorax. The patient is status post median sternotomy. IMPRESSION Impression: No acute cardiopulmonary disease. Performing Organization Address [facility] one Number INTERFACE SYSTEM INTERFACE SYSTEM Refer to clinic/hospital department * TROPONIN (05/14/2012 9:15 AM CDT) TROPONIN I 0.11Comment: GAB JUAN 0 - 0.4 ng/ml [facility] ACCT#[id number], ,,,, LABORATORY SERVICES - [place] MCKIN[place] Specimen Narrative Performed At CARDIAC NYLA-0HR NYLA-0 HR from [id number]. [facility] ABORATORY CARDIAC TROP-0HR TROP-0 HR from [id number]. SERVI NICK PA MCKINNEY Performing Organization Address [facility] one [facility] LABORATORY SERVICES CLIA# [id number] PA MCKIN[place] [facility] [phone] LABORATORY SERVICES CLIA# [id number] [place] [address] * MYOGLOBIN (05/14/2012 9:15 AM CDT) MYOGLOBIN, 48Comment: [facility] [place] 16 - 97 ng/ml M ERCY PLASMA ACCT#[id number], ,,,, LABORATORY SERVICES - [place] Specimen Narrative Performed At CARDIAC NYLA-0HR NYLA-0 HR from [id number]. [facility] L ABORATORY CARDIAC TROP-0HR TROP-0 HR from [id number]. DEVANG MCKINNEY Performing Organization Address [facility] one [facility] LABORATORY SERVICES CLIA# [id number] [place] [address] LABORATORY SERVICES CLIA# [id number] [place] [address] * BRAIN NATRIURETIC PEPTIDE, BNP OR PROBNP (05/14/2012 9:15 AM CDT) BRAIN 139 (H)Comment: 0 - 125 pg/ml [facility] NATRIURETIC [place] LABORATORY PEPTIDE ACCT#[id number], ,,,, SERVICES - [facility] FAYE Specimen Blood specimen (specimen) Performing Organization Address [facility] one [facility] LABORATORY SERVICES CLIA# [id number] [place] [address] LABORATORY SERVICES CLIA# [id number] [place] [address] * PROTIME-INR (05/14/2012 9:15 AM CDT) PROTIME 11.9 (H) 10.1 - 11.5 Sec [facility] LABORATORY SERVICES - [place] FAYE INR 1.10 (L)Comment: 2.0 - 3.0 [facility] [place] LABORATORY ACCT#[id number], ,,,, SERVICES - [place] MCKINNEY Specimen Blood specimen (specimen) Performing Organization Address City/State/Zipcode Ph one Number [facility] LABORATORY SERVICES CLIA# [id number] GAB JEFF[place] [address] - [place] [address] [place] [address] LABORATORY SERVICES CLIA# [id number] [place] [address] - [place] [address] [place] [address] * CBC WITH DIFFERENTIAL (05/14/2012 9:15 AM CDT) WBC 8.74 3.0 - 10.4 x10E3 [facility] - [facility] FAY[facility] RBC 5.08 4.15 - 5.75 x10E6 [facility] LAB[facility]AT[facility] SERVICES - [place] HEMOGLOBIN 14.7 13.8 - 17.4 g/dL [facility] LAB[facility]AT[facility] SERVICES - [place] HEMATOCRIT 43.3 38.6 - 49.4 % [facility] - [place] MCV 85.2 79 - 100 fL [facility] - [place] MCH 28.8 28 - 34 pg [facility] - [place] MCHC 33.9 31 - 35 g/dL [facility] - [place] RDW 13.5 12.1 - 14.1 % [facility] SERVICES - [place] PLATELETS 335 148 - 408 x10E3 [facility] SERVICES - [place] MPV 8.1 7.4 - 10.6 fL [facility] - [place] NEUTROPHILS 65.3 43 - 73 % [facility] SERVICES - [place] LYMPHOCYTES 27.1 19 - 47 % [facility] - [place] MONOCYTES 5.0 3 - 9 % [facility] - [place] EOSINOPHILS 2.0 0 - 6 % [facility] - [place] BASOPHILS 0.6 0 - 1.2 % [facility] - [place] NEUTROPHIL 5.71 1.3 - 7.6 x10E3 [facility] LABORATORY SERVICES - [place] LYMPHOCYTE 2.37 0.6 - 4.9 x10E3 [facility] LABORATORY SERVICES - [place] MONOCYTE 0.44 0.1 - 0.9 x10E3 [facility] LABORATORY SERVICES - [place] EOSINOPHIL 0.18 0.0 - 0.2 x10E3 [facility] LABORATORY SERVICES - [place] BASOPHILS 0.05Comment: [facility] 0 - 0.1 x10E3 [facility] ACCT#[id number], ,,,, LABORATORY SERVICES - [place] MCKIN[place] Specimen Blood specimen (specimen) Performing Organization Address City/[facility] Ph one Number [facility] LABORATORY SERVICES CLIA# [id number] GAB JEFFERSON [address] - [place] [address] [place] [address] LABORATORY SERVICES CLIA# [id number] GAB [place] [address] - [place] [address] [place] [address] * COMPREHENSIVE METABOLIC PANEL (05/14/2012 9:15 AM CDT) [facility] GLUCOSE 147 (H) 70 - 100 mg/dl [facility] LABORATORY SERVICES - [facility] BUN 23.0 (H) 7 - 20 mg/dl [facility] LABORATORY SERVICES - [facility] CREATININE 1.10 0.8 - 1.3 mg/dl [facility] LABORATORY SERVICES - [place] BUN/CREAT RATIO 20.9 (H) 10 - 20 [facility] LABORATORY SERVICES - [place] GFR 72 >60 ml/min [facility] LABORATORY SERVICES - [facility] SODIUM 133 (L) 134 - 145 mmol/L [facility] LABORATORY SERVICES - [facility] POTASSIUM 4.8 3.3 - 4.8 mmol/L [facility] - [facility] CHLORIDE 98 98 - 107 mmol/L [facility] LABORATORY SERVICES - [place] CO2 24.1 22 - 31 mmol/L [facility] LABORATORY SERVICES - [facility] [place] ANION GAP 16 4 - 20 [facility] LABORATORY SERVICES - [place] CALCIUM 8.9 8.5 - 10.1 mg/dl [facility] LABORATORY SERVICES - [facility] ALBUMIN 4.0 3.4 - 5.0 g/dl [facility] LABORATORY SERVICES - [facility] TOTAL PROTEIN 7.5 6.4 - 8.2 g/dl [facility] LABORATORY SERVICES - [facility] GLOBULIN (CALC) 3.5 [facility] - [place] ALBUMIN/GLOBULI 1.1 [facility] LABORATORY SERVICES - [facility] [place] BILIRUBIN TOTAL 0.4 <1.1 mg/dl [facility] LABORATORY SERVICES - PA FAYE ALKALINE 67 50 - 136 IU/L [facility] PHOSPHATASE LABORATORY SERVICES - [place] FAY[place] AST 20 10 - 40 IU/L [facility] LABORATORY SERVICES - [facility] ALT 37Comment: [facility] 25 - 70 IU/L M ERCY ACCT#[id number], ,,,, LABORATORY SERVICES - [place] MCKIN[place] Specimen Blood specimen (specimen) Performing Organization Address City/State/[facility] Ph one Number [facility] LABORATORY SERVICES CLIA# [id number] GAB JEFFERSON [address] - [place] [address] [place] [address] LABORATORY SERVICES CLIA# [id number] GAB JEFF[place] [address] [address] documented in this encounter Visit Diagnoses Diagnosis Abdominal pain, epigastric Vomiting Vomiting alone documented in this encounter Administered Medications Action Date Dose Rate Site Medication Order MAR Action 05/14/2012 9:52 AM CDT 50 mcg Arm, Rig ht fentaNYL PF (SUBLIMAZE) 50 mcg/mL Given injection 50 mcg 50 mcg, IV, ONE TIME ONLY, 1 dose, 05/14/12 at 1000, Routine 05/14/2012 11:19 AM CDT 50 mcg fentaNYL PF (SUBLIMAZE) 50 mcg/mL Given injection 50 mcg 50 mcg, IV, ONE TIME ONLY, 1 dose, 05/14/12 at 1130, Routine 05/14/2012 9:35 AM CDT 0.4 mg nitroglycerin (NITROSTAT) tablet 0.4 mg Given 0.4 mg, Sublingual, ONE TIME ONLY, 1 dose, 05/14/12 at 0930, Routine 0.4 mg Given 05/14/2012 9:28 AM CDT 05/14/2012 9:28 AM CDT 4 mg Arm, Rig ht ondansetron (ZOFRAN) 4 mg/2 mL injection Given 4 mg 4 mg, IV, ONE TIME ONLY, 1 dose, 05/14/12 at 0930, Routine 05/14/2012 11:20 AM CDT 3 mL sodium chloride 0.9 % flush injection 3 Given mL 3 mL, IV, TWO TIMES DAILY, First dose o n 05/14/12 at 0930, Until Discontinued, Routine 3 mL Arm, Right Admin by Another Clinician (Comment) 05/14/2012 9:15 AM CDT SODIUM CHLORIDE 0.9 % SYRINGE 1 dose, Starting 05/14/12 at 0907, Until 05/14/12 at 0915, Leny IAN: cabinet override, 05/14/2012 9:50 AM CDT 250 mL 500 mL/hr Arm, Lef t sodium chloride 0.9% bolus solution 250 Given mL 250 mL, IV, ONE TIME ONLY, 1 dose, 05/14/12 at 1000, at 500 mL/hr, Administe r over 30 Minutes, Routine documented in this encounter
--- OUTSIDE RECORDS SUMMARY | 2020-03-24 14:36 | XMS REPORT | Encounter Summary ---
Author Author [facility] Organization [facility] Address Unknown Phone Unavailable Care Team Providers Care Hat Body Inspector Name Role Phone Shahram Mccallum MD PCP Unavailable Reason for Visit * Reason Comments Abdominal Pain Pt has come to ER with cc o f rt sided abd pain that started yeserday. PT reports some vomiting and diarrhea sinc e yesterday. * Auth/Cert Referred By Contact Referred To Contact Status Reason Specialty Diagnoses / Procedures [facility] [address] [place] [address] Closed Inpatient Encounter Details Care Team Description Date Type Department Mary Moore MD NO ADDRESS ON FILE APPENDECTOMY LAPAROSCOPIC 05/28/2012 Surgery [facility] Operating Room [address] [place] [address] Social History Date Tobacco Use [...] AM CDT Physician Discharge Summary Patient: Oliverio Canada Cook / 61 y.o. / male : 1950 [...] Discharge Instructions * Patient Instructions* Willy Chaves [facility] - 05/31/2012 2:08 PM CDT Electronically signed by Bong El Aok Transcriptions Incoming at 2 2:08 PM [...] up with Dr. Moore in 7 days. June 06 at 2:30. Please keep mark [...] could interf ere with this. These are tagy-sob-mpzxjjz medications and may be given according to [...] reaction or side effects to medications given. [facility] Patient Information 2006 [employer]. MEDICATIONS Reminder-- Please discard any old medication [...] smoke. ................................................................................ ....................................................... THANK YOU FOR CHOOSING [facility] Our goal is to provide you with the highest level of care and service. Your fe edback about the positive experience and opportunities for us to better serve [facility] is important to us. Patients will be randomly selected for either a phone or e-mail survey. * Phone surveys will be conducted by a non-[facility] employed attendant to patients of [facility] inpatient unit, surgery, emergency department, home health or convenient care. * E-mail surveys will be delivered to [facility] patients and outpatients. ................................................................................ ....................................................... IMPORTANT EMERGENCY PHONE NUMBERS Poison Control [place] Crisis Hotline- Domestic Violence Suicide Prevention Lifeline * Attachments The following attachments cannot be sent through Care Everywhere.* APPENDECTOMY: WHAT TO EXPECT AT HOME (PALESTINIAN) documented in this encounter Medications at Time [...] the hospital encounter of 05/28/12 (from the [facility] 24 hour(s)) POC GLUCOSE Component Value Range [...] prior sched appts with me. * Carmella Lpóez RN - 05/30/2012 3:06 AM CDT 0300: [...] 500 mg IV ONCE Leisure, Sybil Lara MANGLE OPERATOR GARMENTS 500 mg at 05/28/12 1155 phenytoin sodium [...] mg IV Post-Proc Once PRN Walter Kebede, TRANS ROUTER 25 mg at 05/28/12 1319 ondansetron (ZOFRAN) 4 mg/2 mL injection 4 mg 4 mg IV Post-Proc Once PRN Walter Maloney, TRANS ROUTER 4 mg at 05/28/12 1255 sodium chloride 0.9 % flush injection 3 mL 3 mL IV BID Mary Mooer MD 3 mL at 05/29/12 0934 lactated [...] mL 3 mL IV BID Palak Henry, MANGLE OPERATOR GARMENTS DISCONTD: famotidine PF (PEPCID) 20 mg/2 mL injection 20 mg 20 mg IV BID Sybil Matt MANGLE OPERATOR GARMENTS 20 mg at 05/28/12 0902 DISCONTD: oxaprozin [...] the hospital encounter of 05/28/12 (from the [facility] 48 hour(s)) CBC WITH MANUAL DIFFERENTIAL Collection [...] (ng/ml) Narrative: CARDIAC GRABIEL-0HR GRABIEL-0 HR from [id number]. CARDIAC TROP-0HR TROP-0 HR from [id number]. TROPONIN Collection Time 05/28/12 9:08 AM Component Value Range TROPONIN I 0.05 0 - 0.4 (ng/ml) Narrative: CARDIAC GRABIEL-0HR GRABIEL-0 HR from [id number]. CARDIAC TROP-0HR TROP-0 HR from . MYOGLOBIN Collection Time 05/28/12 12:55 PM Component Value Range MYOGLOBIN, PLASMA 51 16 - 97 (ng/ml) Narrative: CARDIAC GRABIEL-3HR GRABIEL-3 HR from [id number]. CARDIAC TROP-3HR TROP-3 HR from 720:[id number]. CARDIAC Interim: CAR3 from S. TROPONIN Collection Time 05/28/12 12:55 PM Component Value Range TROPONIN I 0.08 0 - 0.4 (ng/ml) Narrative: CARDIAC GRABIEL-3HR GRABIEL-3 HR from 720:[id number]. CARDIAC TROP-3HR TROP-3 HR from 720:[id number]. CARDIAC Interim: CAR3 from . CARDIAC INTERPRETATION (3 HR) Collection Time 05/28/12 12:55 PM Component Value Range INTERPRETATION Test not performed Narrative: CARDIAC GRABIEL-3HR GRABIEL-3 HR from S. CARDIAC TROP-3HR TROP-3 HR from . CARDIAC Interim: CAR3 from . TROPONIN Collection Time 05/28/12 3:45 PM Component Value Range TROPONIN I 0.08 0 - 0.4 (ng/ml) Narrative: CARDIAC TROP-6HR TROP-6 HR from 720:[id number]. CARDIAC Interim: CAR6 from . CARDIAC INTERPRETATION (6 HR) Collection Time 05/28/12 3:45 PM Component Value Range INTERPRETATION Test not performed Narrative: CARDIAC TROP-6HR TROP-6 HR from [id number]. CARDIAC Interim: CAR6 from . POC GLUCOSE Collection Time 05/28/12 4:56 PM [...] PM Narrative: CARDIAC TROP-12HR TROP-12 HR from 720:[id number]. CARDIAC Final: FINAL from . TROPONIN Collection Time 05/28/12 9:50 PM Component Value Range TROPONIN I 0.27 0 - 0.4 (ng/ml) Narrative: CARDIAC TROP-12HR TROP-12 HR from 720:[id number]. CARDIAC Final: FINAL from 720:[id number]. POC GLUCOSE Collection Time 05/28/12 11:29 PM [...] void, bladder scanned with 95 mls noted. Psychiatric Aides Teacher notified, advised to contin ue to monitor [...] much better now and is talking to Venturepax. Also Fentenyl 50mcg was given at 1351 IV for the chest discomfort. He is much better now at 1415. He is visiting with Venturepax with no left axilla pain. * Pauline [...] 02/01/2009 COLONOSCOPY performed by MARY MOORE at [facility] OR hernia repair 1989 And age 4 [...] injection 3 mL 3 mL IV BID Leisure, Sybil Lara APRN famotidine PF (PEPCID) 20 mg/2 mL injection 20 mg 20 mg IV BID Leisure, Ammy Lara MANGLE OPERATOR GARMENTS 20 mg at 05/28/12901 ondansetron (ZOFRAN) 4 mg/2 mL injection 4 mg 4 mg IV ONCE Leisure, Sybil Lara MANGLE OPERATOR GARMENTS 4 mg at 05/28/12901 GI cocktail oral suspension 30 mL 30 mL Oral ONCE Leisure, Sybil Lara, MANGLE OPERATOR GARMENTS 30 mL at 05/28/12901 fentaNYL PF (SUBLIMAZE) 50 mcg/mL injection 50 mcg 50 mcg IV ONCE Leisure, Sybil Lara, MANGLE OPERATOR GARMENTS 50 mcg at 05/28/12 1006 levofloxacin (LEVAQUIN) 750 mg/150 mL in D5W IVPB 750 mg 750 mg IV ONCE Lei sure, Sybil Lara MANGLE OPERATOR GARMENTS 750 mg at 05/28/12 1012 metroNIDAZOLE (FLAGYL) IVPB 500 mg 500 mg IV ONCE Leisure, Sybil Lara MANGLE OPERATOR GARMENTS fentaNYL PF (SUBLIMAZE) 50 mcg/mL injection 50 mcg 50 mcg IV ONCE Leisure, Sybil Lara MANGLE OPERATOR GARMENTS Current Outpatient Prescriptions Medication Sig Dispense Refill [...] the hospital encounter of 05/28/12 (from the [facility] 336 hour(s)) CBC WITH MANUAL DIFFERENTIAL Collection [...] (ng/ml) Narrative: CARDIAC GRABIEL-0HR GRABIEL-0 HR from 720:[id number]. CARDIAC TROP-0HR TROP-0 HR from [id number]. TROPONIN Collection Time 05/28/12 9:08 AM Component Value Range TROPONIN I 0.05 0 - 0.4 (ng/ml) Narrative: CARDIAC GRABIEL-0HR GRABIEL-0 HR from [id number]. CARDIAC TROP-0HR TROP-0 HR from [id number]. Results for orders placed during the hospital encounter of 05/14/12 (from the [facility] 336 hour(s)) XR CHEST PA OR [...] (ng/ml) Narrative: CARDIAC GRABIEL-3HR GRABIEL-3 HR from [id number]. CARDIAC TROP-3HR TROP-3 HR from [id number]. CARDIAC Interim: CAR3 from [id number]. TROPONIN Collection Time 05/14/12 12:28 PM Component Value Range TROPONIN I LESS THAN 0.04 0 - 0.4 (ng/ml) Narrative: CARDIAC GRABIEL-3HR GRABIEL-3 HR from 706:[id number]. CARDIAC TROP-3HR TROP-3 HR from 706:[id number]. CARDIAC Interim: CAR3 from 706:[id number]. CARDIAC INTERPRETATION (3 HR) Collection Time 05/14/12 12:28 PM Component Value Range INTERPRETATION Test not performed Narrative: CARDIAC GRABIEL-3HR GRABIEL-3 HR from 706:[id number]. CARDIAC TROP-3HR TROP-3 HR from 706:[id number]. CARDIAC Interim: CAR3 from 706:[id number]. TROPONIN Collection Time 05/14/12 3:25 PM Component Value Range TROPONIN I Test not performed 0 - 0.4 (ng/ml) Narrative: CARDIAC TROP-6HR TROP-6 HR from 706:[id number]. CARDIAC Interim: CAR6 from 706:[id number]. CARDIAC INTERPRETATION (6 HR) Collection Time 05/14/12 3:25 PM Component Value Range INTERPRETATION Test not performed Narrative: CARDIAC TROP-6HR TROP-6 HR from 706:[id number]. CARDIAC Interim: CAR6 from 706:[id number]. CARDIAC ENZYMES Collection Time 05/14/12 9:25 PM Component Value Range INTERPRETATION See below. Narrative: CARDIAC TROP-12HR TROP-12 HR from 706:[id number]. CARDIAC Final: FINAL from 706:[id number]. TROPONIN Collection Time 05/14/12 9:25 PM Component Value Range TROPONIN I Test not performed 0 - 0.4 (ng/ml) Narrative: CARDIAC TROP-12HR TROP-12 HR from 706:[id number]. CARDIAC Final: FINAL from 706:[id number]. Assessment: CT showed enlarged appendix of 13 cm consistent with acute appendicitis. Has an umbilical hernia which showed probable incarcerated fat. To OR for surgical tr eatment. Plan: 1. Discussed the risk of surgery including bleeding and infection, and the risk s of general anesthetic including RI, CVA, sudden or even reaction to anes thetic medications. The patient understands the risks, any and all questions wer e answered to the patient's satisfaction. 2. Laparoscopic appendectomy, possible open, and umbilical hernia repair. 3. Preoperative IV Levaquin and IV Flagyl. documented in this encounter Procedure Notes * Aok Scanning, [facility] - 05/31/2012 3:03 PM CDT Associated Order(s): ECG REPORT Electronically signed by Interface, [facility] Aok Transcriptions Incoming at 2 3:03 PM CDT * Aok Scanning, [facility] - 05/31/2012 3:01 PM CDT Associated Order(s): TELEMETRY REPORT Electronically signed by Interface, Bong Aok Transcriptions Incoming at 2 3:01 PM CDT * David Ferrer MD - 05/30/2012 2:16 PM CDT Associated Order(s): ECG REPORT [address] [address] EKG OLIVERIO TINSLEY EF118 [id number] 05/28/12 at 1347. The rhythm is regular, sin us in origin with a rate of 87 beats per minute. VT interval is prolonged. Elect rical axis is [...] DD 05/30/12 TD 05/30/12/LRG EKG REPORT # [id number] ORDER # * David Ferrer MD - 05/30/2012 2:16 PM CDT Associated Order(s): ECG REPORT [facility], [address] [address] EKG OLIVERIO TINSLEY EF118 [id number] 05/28/12 at 0920. The rhythm is regular, sin us in origin with a rate of 93 beats per minute. VT interval is borderline prolo nged. Electrical axis [...] 93 beats per minute. 2) Borderline prolonged VT interval. 3) Leftwar d axis. 4) Clockwise rotation of horizontal electrical axis. 5) Nonspecific T wa ve changes. Dictated by S.V.W. Dictated by: EKG DD 05/30/12 TD 05/30/12/LRG EKG REPORT # [id number] ORDER # documented in this encounter Consult Notes * Claus Couch MD - 05/28/2012 2:42 PM CDT Associated Order(s): IP CONSULT TO FAMILY PRACTICE Oliverio Tinsley is a 61 y.o. male [facility] [employer] to abdominal pain was found to have [...] 02/01/2009 COLONOSCOPY performed by MARY MOORE at [facility] OR Hx hernia repair 1989 And age [...] 05/31/2012 2:08 PM CDT Electronically signed by Bong El Transcriptions Incoming at 2 2:08 PM CDT * OR Anesthesia - Walter Beaver CRNA - 05/29/2012 9:33 AM CDT Post Operative Anesthesia Note Patient: Oliverio Tinsley Medical record: [id number] Post: APPENDECTOMY LAPAROSCOPIC, HERNIA UMBILICAL REPAIR Anesthesia [...] Nausea: Signs/Symptoms: (denies at this time) (05/28/12 1954) Last Emesis: Post-Op hydration: Intake/Output Summary (Last 24 hours) at 05/29/12 0932 Last data filed at 05/29/12 0900 Gross per 24 hour Intake 2460 ml Output 800 ml Net 1660 ml Post Anesthesia Modified Ofelia: Activity: able to move 4 extremities voluntarily or on command (05/28/12 1319) Respiration: able to breath and cough [...] Local of Sensorcaine 0.5% used by Dr. oMore. * Operative Report - Mary Moore MD [...] Anesthesia Note Patient: Oliverio Tinsley Medical record: [id number] Post: APPENDECTOMY LAPAROSCOPIC, HERNIA UMBILICAL REPAIR Anesthesia [...] scheduled for Procedure(s): APPENDECTOMY LAPAROSCOPIC. Medical record [id number]. Patient Active Problem List Diagnoses Date Noted [...] 02/01/2009 COLONOSCOPY performed by MARY MOORE at [facility] OR hernia repair 1989 And age 4 [...] 3 mL, IV, BID, Leisure, Lynieta L., MANGLE OPERATOR GARMENTS; famotidine PF (PEPCID) 20 mg/2 mL injection 20 mg, 20 mg, IV, BID, Leisure, Lynieta L., MANGLE OPERATOR GARMENTS, 20 mg at 05/28/12901; ondansetron (ZOFRAN) 4 mg/2 mL injection 4 mg, 4 mg, IV, ONCE, Leisure, Lynieta L., MANGLE OPERATOR GARMENTS, 4 mg at 05/28/12901 GI cocktail oral suspension 30 mL, 30 mL, Oral, ONCE, Leisure, Lynieta L., MANGLE OPERATOR GARMENTS, 30 mL at 05/28/12901; fentaNYL PF (SUBLIMAZE) 50 mcg/mL injection 50 mcg, 50 mcg, IV, ONCE, Leisure, Lynieta L., MANGLE OPERATOR GARMENTS, 50 mcg at 05/28/12 1006; levofloxacin (LEVAQUIN) 750 mg/150 mL in D5W IVPB 750 mg, 750 mg, IV, ONCE, Leisure, Lynieta L., MANGLE OPERATOR GARMENTS, 750 mg at 05/28/12 1012; metroNIDAZOLE (FLAGYL) IVPB 500 mg, 500 mg, IV, ONCE, Leisure, Lynieta L., MANGLE OPERATOR GARMENTS fentaNYL PF (SUBLIMAZE) 50 mcg/mL injection 50 mcg, 50 mcg, IV, ONCE, Leisure, L ynieta L., MANGLE OPERATOR GARMENTS, 50 mcg at 05/28/12 1054 Allergies Allergen [...] documented in this encounter ED Notes * Sbyil Henry, MANGLE OPERATOR GARMENTS - 05/28/2012 9:48 AM CDT HISTORY OF [...] 02/01/2009 COLONOSCOPY performed by MARY MOORE at [facility] OR Hx hernia repair 1989 And age [...] the hospital encounter of 05/28/12 (from the [facility] 24 hour(s)) CBC WITH MANUAL DIFFERENTIAL Component [...] Notes * Scanned Form - Aok Scanning, [facility] - 06/02/2012 1:29 PM CDT Electronically signed by Interface, [facility] Aok Transcriptions Incoming at 2 1:29 PM CDT * Scanned Form - Aok Scanning, [facility] - 05/31/2012 2:08 PM CDT Electronically signed by Interface, [facility] Aok Transcriptions Incoming at 2 2:08 PM CDT * Scanned Form - Aok Scanning, [facility] - 05/31/2012 2:08 PM CDT Electronically signed by Interface, [facility] Aok Transcriptions Incoming at 2 2:08 PM CDT * Scanned Form - Aok Scanning, [facility] 05/31/2012 2:05 PM CDT Electronically signed by Interface, [facility] Aok Transcriptions Incoming at 2 2:05 PM CDT * Scanned Form - Aok Scanning, [facility] - 05/30/2012 12:40 PM CDT Electronically signed by Interface, [facility] Aok Transcriptions Incoming at 2 12:40 PM CDT * Care Plan - Jo Leger RN - 05/29/2012 10:47 AM CDT Problem: General Plan of Care (Adult, Obstetrics) Goal: Plan of Care Review (Adult, Obstetrics) The patient and/or their payroll representative will communicate an understanding of the ir plan of care. Outcome: Progressing Will get IV antibiotics as ordered and use the incentive spirometer and be monit ored for pain med * Care Plan - Jo Leger RN - 05/29/2012 10:46 AM CDT Problem: General Plan of Care (Adult, Obstetrics) Goal: Individualization/Patient-Specific Goal (Adult, Obstetrics) The patient and/or their payroll representative will achieve their patient-specific goal s [...] Review (Adult, Obstetrics) The patient and/or their payroll representative will communicate an understanding of the [...] Bernard MD - 05/30/2012 2:[address] [facility]. [address] [place] [address]. [place], [place] [address] EKG OLIVERIO TINSLEY EF118 [id number] 05/28/12 at 0920. The rhythm is regular, sinus in origin with a rate of 93 beats per minute. VT interval is borderline prolonged. Electrical axis is leftward. Slow R wave progression is seen in the anteroseptal chest leads. R wave transition is delayed. T waves are inverted in lateral limb leads. Compared with previous tracing dated May 14 2012, R wave transition occurs slightly earlier across the chest previously. Diagnosis: 1) Sinus rhythm, rate 93 beats per minute. 2) Borderline prolonged VT interval. 3) Leftward axis. 4) Clockwise rotation of horizontal electrical axis. 5) Nonspecific T wave changes. Dictated by S.V.W. Dictated by: EKG DD 05/30/12 TD 05/30/12/LRG EKG REPORT # [id number] ORDER # 05/31/2012 3:03 PM CDT * TELEMETRY REPORT (05/31/2012 3:01 PM CDT) Narrative Performed At This result has an attachment that is n ot available. Transcriptions 05/31/2012 3:01 PM CDT * ECG REPORT (05/30/2012 2:40 PM CDT) Transcriptions David Bernard MD - 05/30/2012 2:[address] [facility]. [address] [place] [address]. [place], [place] [address] EKG OLIVERIO TINSLEY EF118 [id number] 05/28/12 at 1347. The rhythm is regular, sinus in origin with a rate of 87 beats per minute. VT interval is prolonged. Electrical axis is leftward. [...] DD 05/30/12 TD 05/30/12/LRG EKG REPORT # [id number] ORDER # * POC GLUCOSE (05/30/2012 7:02 AM CDT) POC GLUCOSE 180 (H)Comment: Luigi Kaur 70 - 110 mg/dl Mariusz Guzman, Point of Care LABORATORY Site,,,, SERVICES - [place] POC GLUCOSE 180 (H) 70 - 110 mg/dl [facility] VALUE LABORATORY SERVICES - [place] Specimen Capillary blood specimen (specimen) Performing Organization Address City/State/Zipcode Ph one Number [facility] CLIA# [id number] MARIUSZ JEFF[place] [address] - [place] [address] [place] [address] LABORATORY SERVICES CLIA# [id number] [place] [address] [place] [address] [place] [address] * POC GLUCOSE (05/29/2012 10:00 PM CDT) POC GLUCOSE 160 (H)Comment: [place] 70 - 110 mg/dl SUGEY Tirso RuggieroMariusz, Point of Care LABORATORY Site,,,, SERVICES - [place] POC GLUCOSE 160 (H) 70 - 110 mg/dl [place] VALUE LABORATORY SERVICES - [place] Specimen Performing Organization Address [facility] one [facility] LABORATORY SERVICES CLIA# [id number] [place]IUS[place] 667 - [place] [address] [place] [address] LABORATORY SERVICES CLIA# [id number] [place] [address] [facility] [place] [address] [place] [address] * POC GLUCOSE (05/29/2012 4:15 PM CDT) POC GLUCOSE 194 (H)Comment: [place] 70 - 110 mg/dl SUGEY Ruggiero Mariusz, Point of Care LABORATORY Site,,,, SERVICES - [place] POC GLUCOSE 194 (H) 70 - 110 mg/dl [place] VALUE LABORATORY SERVICES - [place] Specimen Capillary blood specimen (specimen) Performing Organization Address [facility] LABORATORY SERVICES CLIA# [id number] MARIUSZ [place] 667 - [place] [address] [place] [address] LABORATORY SERVICES CLIA# [id number] [place] [address] * POC GLUCOSE (05/29/2012 11:29 AM CDT) POC GLUCOSE 129 (H)Comment: [facility] 70 - 110 mg/dl SUGEY Ruggiero Mariusz, Point of Care LABORATORY Site,,,, SERVICES - [place] POC GLUCOSE 129 (H) 70 - 110 mg/dl [facility] [place] VALUE LABORATORY SERVICES - [place] Specimen Performing Organization Address City/[facility] LABORATORY SERVICES CLIA# [id number] MARIUSZ JEFFERSON 667 - [place] [address] [place] [address] LABORATORY SERVICES CLIA# [id number] [place] [address] [place] [address] [place] [address] * POC GLUCOSE (05/29/2012 6:43 AM CDT) Pathologist [facility] POC GLUCOSE 152 (H) 70 - 110 mg/dl [facility] Comment: LABORATORY [facility] LYNN SERVICES - [facility] [place] ACCT#[id number], ,,,, BAHMAN [facility], [facility], [place], Point of Care Site,,,, POC GLUCOSE 152 (H) 70 - 110 mg/dl [facility] [employer] VALUE LABORATORY SERVICES - [place] Specimen Capillary blood specimen (specimen) Performing Organization Address [facility] LABORATORY SERVICES CLIA# [id number] MARIUSZ JEFFERSON [facility] [phone] [place] [address] [place] [address] LABORATORY SERVICES CLIA# [id number] [place] [address] * MYOGLOBIN (05/29/2012 5:55 AM CDT) Pathologist [facility] MYOGLOBIN, 36Comment: [facility] PACE 16 - 97 ng/ml [facility] PLASMA ACCT#[id number], ,,,, LABORATORY SERVICES - [place] Specimen Blood specimen (specimen) Performing Organization Address [facility] LABORATORY SERVICES CLIA# [id number] MARIUSZ JEFFERSON [facility] [phone] [place] [address] [place] [address] LABORATORY SERVICES CLIA# [id number] [place] [address] * TROPONIN (05/29/2012 5:55 AM CDT) [facility] TROPONIN I 0.20Comment: [facility] PACE 0 - 0.4 ng/ml [facility] ACCT#[id number], ,,,, LABORATORY SERVICES - [place] Specimen Blood specimen (specimen) Performing Organization Address [facility] LABORATORY SERVICES CLIA# [id number] MARIUSZ JEFFERSON [address] [place] [address] [place] [address] LABORATORY SERVICES CLIA# [id number] [place] [address] * POC GLUCOSE (05/28/2012 11:29 PM CDT) POC GLUCOSE 157 (H)Comment: SugeytirsoLuigi 70 - 110 mg/dl [facility] [place], Point of Care LABORATORY Site,,,, SERVICES - [place] POC GLUCOSE 157 (H) 70 - 110 mg/dl [facility] LABORATORY SERVICES - [place] Specimen Performing Organization Address City/[facility] Ph one Number [facility] LABORATORY SERVICES CLIA# [id number] MARIUSZ JEFFERSON 667 - [place] [address] [place] [address] LABORATORY SERVICES CLIA# [id number] [place] [address] - [address] * TROPONIN (05/28/2012 9:50 PM CDT) Pathologist [facility] TROPONIN I 0.27Comment: MARIUSZ JUAN 0 - 0.4 ng/ml [facility] ACCT#[id number], ,,,, LABORATORY SERVICES - [place] Specimen Narrative Performed At CARDIAC TROP-12HR TROP-12 HR from 720:[id number]. MANUEL [place] LABORATORY CARDIAC Final: FINAL from 720:[id number]. SERVICES - [place] Performing Organization Address City/[facility] Medical Centercode Ph one Number [facility] LABORATORY SERVICES CLIA# [id number] MARIUSZ JEFFERSON 667 - [place] [address] [place] [address] LABORATORY SERVICES CLIA# [id number] [place] [address] - [address] * CARDIAC ENZYMES (05/28/2012 9:50 PM CDT) INTERPRETATION See below. [facility] Comment: LABORATORY INTERPRETATION - 05/30/12 0745 [facility] Jon increased troponin-I BAHMAN result at 12 hours. Acute myocardial injury cannot be completely ruled out. Correlation with clinical history and EKG findings is recommended. Linda Elise. MERCEDESMARIUSZ L[place]NN ACCT#[id number], ,,,, Specimen Blood specimen (specimen) Narrative Performed At CARDIAC TROP-12HR TROP-12 HR from 720:[id number]. MANUEL [place] LABORATORY CARDIAC Final: FINAL from 720:[id number]. SERVICES - [place] Performing Organization Address City/[facility] [facility] Ph one Number [facility] LABORATORY SERVICES CLIA# [id number] [place], [place] [address] - [address] LABORATORY SERVICES CLIA# [id number] [place] [address] * POC GLUCOSE (05/28/2012 7:57 PM CDT) POC GLUCOSE 140 (H)Comment: Mercedes, 70 - 110 mg/dl [place], Point of Care LABORATORY Site,,,, SERVICES - [place] POC GLUCOSE 140 (H) 70 - 110 mg/dl [facility] LABORATORY SERVICES - [place] Specimen Performing Organization Address [facility] Ph one Number [facility] LABORATORY SERVICES CLIA# [id number] [place] [address] [address] LABORATORY SERVICES CLIA# [id number] [place], [place] [address] [place] [address] * PATHOLOGY (05/28/2012 6:17 PM CDT) SURGICAL Name: OLIVERIO TINSLEY SHIRAOMI Castro PATHOLOGY : PATHOLOGY 48 Location: [facility] [place] [facility] Sex: M Unit#: [id number] Room/Bed: [place] [address] Ordering Physician: Mary Moore M.D. RECD: 05/28/12 PROCEDURE DATE: 05/28/[address] [facility] [address]: Mary Moore M.D. [facility] DR: ICD CODES: 540.9 PROCEDURES: [id number] LOCATION: [facility] EPIC MATERIAL SUBMITTED Appendix. CLINICAL DIAGNOSIS: Acute appendicitis, umbilical hernia. Procedure: Laparoscopic appendectomy and umbilical hernia repair. Technical component performed at [facility], [address] [place] [address]. GROSS DESCRIPTION The specimen is labeled appendix. [...] patent along the length of the appendix. Head Of Store Operations sections submitted in one cassette. Dictated by:Mahsa Bernard M.D., V. TD:05/30/12847 [facility] Sections reveal ulcerations of the colonic mucosa lining the appendix lumen. There is abundant acute inflammatory exudate filling the lumen and extending through the appendix wall, onto the serosal surface. Perforation is not recognized. Dictated by:Mahsa Bernard M.D., V. TD:05/30/121452 NARGIS FINAL DIAGNOSIS Appendix: Acute appendicitis. Dictated by: Mahsa Bernard M.D., V. TD:05/30/128 NARGIS Signed (electronic signature) David Bernard M.D. 05/30/12 0344 END OF REPORT Comment: , ,,,, Specimen Specimen of unknown material (specimen) Performing Organization Address City/[facility] Ph one Number [facility] LABORATORY SERVICES CLIA# [id number] [place] [address] - [address] [facility] PATH[facility] CLIA# [id number] [place], [place] [address] [facility], [place] [address] [place] [address] * POC GLUCOSE (05/28/2012 4:56 PM CDT) POC GLUCOSE 168 (H)Comment: Luigi Kaur 70 - 110 mg/dl Mariusz Guzman, Point of Care LABORATORY Site,,,, SERVICES - [place] POC GLUCOSE 168 (H) 70 - 110 mg/dl [facility] - [place] Specimen Performing Organization Address City/[facility] Ph one Number [facility] LABORATORY SERVICES CLIA# [id number] [place] [address] [address] LABORATORY SERVICES CLIA# [id number] [place] [address] * CARDIAC INTERPRETATION (6 HR) (05/28/2012 3:45 PM CDT) INTERPRETATION Test not performedComment: [facility] ACCT#[id number], ,,,, SERVICES - [facility] [place] Specimen Narrative Performed At CARDIAC TROP-6HR TROP-6 HR from 720:[id number]. [facility] CARDIAC Interim: CAR6 from 720:[id number]. SERVICES - [place] Performing Organization Address City/[facility] Ph one Number [facility] LABORATORY SERVICES CLIA# [id number] [place] [address] LABORATORY SERVICES CLIA# [id number] [place] [address] * TROPONIN (05/28/2012 3:45 PM CDT) TROPONIN I 0.08Comment: [facility] [place] 0 - 0.4 ng/ml [facility] ACCT#[id number], ,,,, LABORATORY SERVICES - [facility] [place] Specimen Narrative Performed At CARDIAC TROP-6HR TROP-6 HR from 720:[id number]. [facility] CARDIAC Interim: CAR6 from 720:[id number]. SERVICES - [place] Performing Organization Address City/[facility] Ph one Number [facility] LABORATORY SERVICES CLIA# [id number] [place] [address] LABORATORY SERVICES CLIA# [id number] [place] [address] * CARDIAC INTERPRETATION (3 HR) (05/28/2012 12:55 PM CDT) INTERPRETATION Test not performedComment: [facility] ACCT#[id number], ,,,, SERVICES - [place] Specimen Narrative Performed At CARDIAC GRABIEL-3HR GRABIEL-3 HR from 720:[id number]. [facility] AB[facility] CARDIAC TROP-3HR TROP-3 HR from 720:[id number]. [facility] CARDIAC Interim: CAR3 from 720:[id number]. [place] Performing Organization Address [facility] one [facility] LABORATORY SERVICES CLIA# [id number] [place] [facility] [phone] - [address] LABORATORY SERVICES CLIA# [id number] [place], [place] [address] [place] [address] * TROPONIN (05/28/2012 12:55 PM CDT) TROPONIN I 0.08Comment: [place], [place] 0 - 0.4 ng/ml [facility] ACCT#[id number], ,,,, LABORATORY SERVICES - [place] Specimen Narrative Performed At CARDIAC GRABIEL-3HR GRABIEL-3 HR from 720:[id number]. [facility] CARDIAC TROP-3HR TROP-3 HR from 720:[id number]. [facility] CARDIAC Interim: CAR3 from 720:[id number]. [place] Performing Organization Address [facility] one [facility] LABORATORY SERVICES CLIA# [id number] [place] [facility] [phone] - [address] LABORATORY SERVICES CLIA# [id number] [place], [place] [address] [place] [address] * MYOGLOBIN (05/28/2012 12:55 PM CDT) MYOGLOBIN, 51Comment: [place] [facility], [place] 16 - 97 ng/ml [facility] ACCT#[id number], ,,,, LABORATORY SERVICES - [place] Specimen Narrative Performed At CARDIAC GRABIEL-3HR GRABIEL-3 HR from 720:[id number]. [facility] CARDIAC TROP-3HR TROP-3 HR from 720:[id number]. [facility] CARDIAC Interim: CAR3 from 720:[id number]. [place] Performing Organization Address [facility] Ph one [facility] LABORATORY SERVICES CLIA# [id number] [place] [facility] [phone] - [address] LABORATORY SERVICES CLIA# [id number] [place] [address] - [place] [address] [facility] * XR CHEST PA OR AP (05/28/2012 [...] pelvic abnormali ty. Procedure Note Bong El Aoaldair Incoming Radiology Results - 05/30/2012 10:13 AM [...] noted. No significant obstruction. Performing Organization Address [facility] one Number INTERFACE SYSTEM INTERFACE SYSTEM Refer to clinic/hospital department * TROPONIN (05/28/2012 9:08 AM CDT) TROPONIN I 0.05Comment: [facility]ANETN 0 - 0.4 ng/ml [facility] ACCT#[id number], ,,,, LABORATORY SERVICES - [place] Specimen Narrative Performed At CARDIAC GRABIEL-0HR GRABIEL-0 HR from 720:[id number]. [facility] CARDIAC TROP-0HR TROP-0 HR from 720:[id number]. DEVANG [place] Performing Organization Address [facility] LABORATORY SERVICES CLIA# [id number] [place] [address] - [address] LABORATORY SERVICES CLIA# [id number] [place] [address] * MYOGLOBIN (05/28/2012 9:08 AM CDT) MYOGLOBIN, 31Comment: [facility]ANETN 16 - 97 ng/ml [facility] ACCT#[id number], ,,,, LABORATORY SERVICES - [place] Specimen Narrative Performed At CARDIAC GRABIEL-0HR GRABIEL-0 HR from 720:[id number]. [facility] CARDIAC TROP-0HR TROP-0 HR from 0721:[id number]. DEVANG [place] Performing Organization Address [facility] one [facility] LABORATORY SERVICES CLIA# [id number] [place] [address] LABORATORY SERVICES CLIA# [id number] [place] [address] * LIPASE (05/28/2012 9:08 AM CDT) LIPASE 103Comment: [facility]ALSANJEEVTN 84 - 319 U/L [facility] ACCT#[id number], ,,,, LABORATORY SERVICES - [place] Specimen Blood specimen (specimen) Performing Organization Address City/State/[facility] Ph one Number [facility] LABORATORY SERVICES CLIA# [id number] [place] [address] - [place] [address] [place] [address] LABORATORY SERVICES CLIA# [id number] [place] [address] - [facility] [place] [address] [place] [address] * COMPREHENSIVE METABOLIC PANEL (05/28/2012 9:08 AM CDT) Pathologist [facility] GLUCOSE 185 (H) 70 - 100 mg/dl [facility] LABORATORY SERVICES - [place] BUN 12.0 7 - 20 mg/dl [facility] LABORATORY SERVICES - [facility] CREATININE 1.06 0.8 - 1.3 mg/dl [facility] LABORATORY SERVICES - [place] BUN/CREAT RATIO 11.3 10 - 20 [facility] LABORATORY SERVICES - [place] GFR 75 >60 ml/min [facility] LABORATORY SERVICES - [facility] SODIUM 136 134 - 145 mmol/L [facility] LABORATORY SERVICES - [facility] POTASSIUM 3.9 3.3 - 4.8 mmol/L [facility] LAB[facility]ATORY SERVICES - [facility] CHLORIDE 102 98 - 107 mmol/L [facility] SERVICES - [place] CO2 28.2 22 - 31 mmol/L [facility] LABORATORY SERVICES - [facility] ANION GAP 10 4 - 20 [facility] LABORATORY SERVICES - [facility] CALCIUM 9.1 8.5 - 10.1 mg/dl [facility] LABORATORY SERVICES - [facility] ALBUMIN 4.0 3.4 - 5.0 g/dl [facility] LABORATORY SERVICES - [facility] TOTAL PROTEIN 7.6 6.4 - 8.2 g/dl [facility] LABORATORY SERVICES - [facility] GLOBULIN (CALC) 3.6 [facility] LABORATORY SERVICES - [place] ALBUMIN/GLOBULI 1.1 [facility] N RATIO LABORATORY SERVICES - [place] BILIRUBIN TOTAL 0.8 <1.1 mg/dl [facility] LABORATORY SERVICES - [place] ALKALINE 77 50 - 136 IU/L [facility] PHOSPHATASE LABORATORY SERVICES - [place] AST 19 10 - 40 IU/L [facility] LABORATORY SERVICES - [place] ALT 37Comment: [facility] 25 - 70 IU/L [facility] ACCT#[id number], ,,,, LABORATORY SERVICES - [place] Specimen Blood specimen (specimen) Performing Organization Address City/State/Zipcode Ph one Number [facility] CLIA# [id number] [place] [address] - [place] [address] [place] [address] [facility]ATORY SERVICES CLIA# [id number] [place] [address] - [place] [address] [place] [address] * CBC WITH MANUAL DIFFERENTIAL (05/28/2012 9:08 [...] 6 %Manual [facility] LYMPHOCYTE LABORATORY SERVICES - [facility] [place] PLATELET EST. Normal [facility] LABORATORY SERVICES - [facility] [place] WBC ESTIMATE Increased [facility] SERVICES - [place] WBC 14.69 (H) 3.0 - 10.4 x10E3 [facility]AT[facility] SERVICES - [place] RBC 4.84 4.15 - 5.75 x10E6 [facility] SERVICES - [place] HEMOGLOBIN 13.9 13.8 - 17.4 g/dL [facility] SERVICES - [place] HEMATOCRIT 41.6 38.6 - 49.4 % [facility] SERVICES - [place] MCV 86.0 79 - 100 fL [facility] SERVICES - [place] MCH 28.7 28 - 34 pg [facility] - [place] MCHC 33.4 31 - 35 g/dL [facility] - [place] RDW 13.4 12.1 - 14.1 % [facility] - [place] PLATELETS 254 148 - 408 x10E3 [facility] SERVICES - [place] MPV 7.8 [...] NEUTROPHIL 12.18 (H) 1.3 - 7.6 x10E3 [facility] ABSOLUTE LABORATORY SERVICES - [place] LYMPHOCYTE 1.18 0.6 - 4.9 x10E3 [facility]UTE LAB[facility]AT[facility] SERVICES - [place] MONOCYTE 1.21 (H) 0.1 - 0.9 x10E3 [facility] ABSOLUTE LABORATORY SERVICES - [place] EOSINOPHIL 0.08 0.0 - 0.2 x10E3 [facility] LAB[facility]AT[facility] SERVICES - [place] BASOPHILS 0.03Comment: MARIUSZ JUAN 0 - 0.1 x10E3 [facility] ABSOLUTE ACCT#[id number], ,,,, LABORATORY SERVICES - [place] Specimen Blood specimen (specimen) Performing Organization Address City/State/Zipcode Ph one Number [facility] LABORATORY SERVICES CLIA# [id number] [place] [address] - [place] [address] [place] [address] LABORATORY SERVICES CLIA# [id number] [place] [address] - [place] [address] documented in this encounter Visit Diagnoses Not on filedocumented in this encounter
--- OUTSIDE RECORDS SUMMARY | 2020-03-24 14:37 | XMS REPORT | Encounter Summary ---
Author Author [facility] Organization [facility] Address Unknown Phone Unavailable Care Team Providers Care Motor Lodge Clerk Name Role Phone Shahram Mccallum MD PCP Unavailable Reason for Visit * Reason Comments Medication Review Dr Mccallum would like to lo wer Simvastatin to 40mg daily Encounter Details Care Team Description Date Type Department Rosalinda Bal Medication Review (Dr Mccallum would like to lower Simvastatin to 40mg daily) 02/18/2012 Telephone [facility] [address] [place] [address] Social History Date Tobacco Use [...] * Telephone Encounter - Rosalinda Bal - 02/18/2012 9:[address] Mccallum reduce Simvastatin to 40mg daily. Patient states if will make th at change. Keep scheduled follow up. documented in this encounter Plan of Treatment Not on filedocumented as of this encounter Visit Diagnoses Not on filedocumented in this encounter
--- OUTSIDE RECORDS SUMMARY | 2020-03-24 14:37 | XMS REPORT | Encounter Summary ---
Author Author [facility] Organization [facility] Address Unknown Phone Unavailable Care Team Providers Care Senior Program Manager Name Role Phone Shahram Mccallum MD PCP Unavailable Reason for Visit * Reason Comments Medication Review Encounter Details Care Team Description Date Type Department Nuris Miramontes Medication Review 01/28/2012 Telephone [facility] Primar y [facility] [address] [place] [address] Social History Date Tobacco Use [...] * Telephone Encounter - Nuris Miramontes - 01/28/2012 5:36 PM CDT Pt is presently taking daypro 600 mg. This med is on back order until february. New order for voltaren 50 mg sig: one bid #60 given to Pilar at [facility] pharmacy. documented in this encounter Plan of Treatment Not on filedocumented as of this encounter Visit Diagnoses Not on filedocumented in this encounter
--- OUTSIDE RECORDS SUMMARY | 2020-03-24 14:37 | XMS REPORT | Encounter Summary ---
Author Author [facility] Organization [facility] Address Unknown Phone Unavailable Care Team Providers Care Edge Polisher Name Role Phone Shahram Mccallum MD PCP Unavailable Reason for Visit * Reason Comments Medication Refill Encounter Details Care Team Description Date Type Department Shahram Mccallum MD NO ADDRESS ON FILE 04/19/2012 Refill [facility] Primar y Care [address] [phone] Social History Date Tobacco Use Types Packs/Day [...]
--- OUTSIDE RECORDS SUMMARY | 2020-03-24 14:37 | XMS REPORT | Encounter Summary ---
Author Author [facility] Organization [facility] Address Unknown Phone Unavailable Care Team Providers Care Product Support Sales Representative Name Role Phone Shahram Mccallum MD PCP Unavailable Reason for Visit * Reason Comments Medication Refill Encounter Details Care Team Description Date Type Department Shahram Mccallum MD NO ADDRESS ON FILE 03/01/2012 Refill [facility] Primar y Care [address] [phone] Social History Date Tobacco Use Types Packs/Day [...]
--- OUTSIDE RECORDS SUMMARY | 2020-03-24 14:37 | XMS REPORT | Encounter Summary ---
Author Author [facility] Organization [facility] Address Unknown Phone Unavailable Care Team Providers Care Cross Tie Turner Name Role Phone Shahram Mccallum MD PCP Unavailable Reason for Referral * Eval and Treat (Routine) Referred By Contact Referred To Contact Status Reason Specialty Diagnoses / Procedures Aries Fraser MD [address] [place] [address] Andres Colon, [address] [place] [address] Closed Surgery / Diagnoses General Surgery Right inguinal hernia Reason for Visit * Reason Comments Cough x 1 wk Sleep Problem not able to rest at night d ue to coughing Abdominal Pain RUQ & RLQ, started this am, tender to touch Encounter Details Care Team Description Date Type Department Aries Fraser MD [address] [place] [address] Acute bronchitis; Right inguinal hernia 01/27/2012 Office Visit [facility] Primar y Care [place] [address] [place] [address] Social History Date Tobacco [...] Signs Reading Time Taken Comments Vital Sign 156/82 01/27/2012 10:59 AM CDT Blood Pressure - - Pulse 37.3 C (99.2 F) 01/27/2012 10:59 AM CDT Temperature - - Respiratory Rate - - Oxygen Saturation - - Inhaled Oxygen Concentration 102.1 kg (225 lb) 01/27/2012 10:59 AM CDT Weight 167.6 cm (5' 6") 01/27/2012 10:59 AM CDT Height 36.32 01/27/2012 10:59 AM CDT Body Mass Index documented in this encounter Progress Notes * Self, Aries Montelongo MD - 01/27/2012 11:41 AM CDT HISTORY OF PRESENT ILLNESS Oliverio Dalton, a 61 y.o. male. Cough This is a new problem. The current episode started more than 2 days ago. The pro blem occurs constantly. The problem has not changed since onset.The cough is pro ductive of sputum. The maximum temperature recorded prior to his arrival was 100 to 100.9 F. Pertinent negatives include no headaches and no myalgias. Abdominal Pain This is a new problem. The current episode started 6 to 12 hours ago. The proble m occurs constantly. The problem has not changed since onset.Associated with: co uging. The pain is located in the RLQ (radiates to right teste). The quality of the pain is aching and sharp. The pain is moderate. Associated symptoms include fever, nausea and vomiting (started prior to abd pain with illness). Pertinent n egatives include anorexia, diarrhea, constipation, dysuria, frequency, hematuria , headaches, arthralgias and myalgias. The symptoms are aggravated by coughing. Chief Complaint Patient presents with Cough x 1 wk Sleep Problem not able to rest at night due to coughing Abdominal Pain RUQ & RLQ, started this am, tender to touch Oliverio Dalton is a 61 y.o. male with the following history as [...] Bladder, NOS Unspecified Glaucoma Bipolar Disorder, Unspecified Current Outpatient Prescriptions on File Prior to Visit Medication Sig Dispense Refill zolpidem (AMBIEN) 10 mg Oral tablet Take 1 Tab by mouth nightly as needed fo r Insomnia. 30 Tab 2 esomeprazole (NEXIUM) 40 mg Oral CpDR Take 1 Cap by mouth daily before break fast. 30 Cap 11 insulin glargine (LANTUS) 100 unit/mL subCUT Soln 20 units at hs 10 mL 11 isosorbide mononitrate SR 24 hour (IMDUR) 60 mg Oral tablet Take 1 Tab by mo uth 2 times daily. 60 Tab 11 ramipril (ALTACE) 10 mg Oral capsule Take 10 mg by mouth daily. nitroglycerin (NITROSTAT) 0.[address] 1 Tab under tongue ev len 5 minutes as needed for Chest Pain. 25 Tab prn phenytoin (PHENYTEK) 200 mg Oral Cap Take 1 Cap by mouth 2 times daily. In t he morning and at bedtime. 60 Cap 5 oxaprozin (DAYPRO) 600 mg Oral tablet Take 1 Tab by mouth daily. 30 Tab 11 simvastatin (ZOCOR) 80 mg Oral tablet Take 1 Tab by mouth daily at bedtime. 30 Tab 11 fenofibrate nanocrystallized (TRICOR) 145 [...] Caps by mouth daily. 60 Cap 11 metoprolol succinate ER 24 hour (TOPROL XL) 25 mg Oral tablet Take 1 Tab by mouth daily. 30 Tab 11 pioglitazone (ACTOS) 30 mg Oral tablet Take 1 Tab by mouth daily. 30 Tab 1 1 clopidogrel (PLAVIX) 75 mg Oral Tab Take 1 Tab by mouth daily. 30 Tab 11 loratadine (CLARITIN) 10 mg Oral tablet Take 1 Tab by mouth daily. 30 Tab 11 rifampin (RIFADINE) 300 mg Oral capsule Take 1 Cap by mouth every 12 hours. 20 Cap 0 LORazepam (ATIVAN) 1 mg Oral tablet Take 1 Tab by mouth 2 times daily. 60 T ab 2 magnesium oxide 250 mg Oral Tab Take 1 Tab by mouth 3 times daily. FLONASE 50 mcg/Actuation Both Nostril SpSn Administer 2 Sprays in each nostr il daily. ASPIRIN EC 81 mg Oral TbEC [...] as needed for P ain. Allergies: Codeine; Phenobarbital; Piperacillin-tazobactam; Terazosin; and Valiu m Past Medical History Diagnosis Date Wrist sprain [...] 02/01/2009 COLONOSCOPY performed by BEULAH MOORE at [facility] OR Hx hernia repair 1988 And [...] No REVIEW OF SYSTEMS Review of Systems Constitutional: Positive for fever. Respiratory: Positive for cough. Gastrointestinal: Positive for nausea, vomiting (started prior to abd pain with illness) and abdominal pain. Negative for diarrhea, constipation and anorexia. Genitourinary: Negative for dysuria, frequency and hematuria. Musculoskeletal: Negative for myalgias and arthralgias. Neurological: Negative for headaches. PHYSICAL EXAM BP 156/82 | Temp(Src) 99.2 F (37.3 C) (Tympanic) | Ht 5' 6" (1.676 m) | Wt 2 25 lb (102.059 kg) | BMI 36.32 kg/m2 Physical Exam Constitutional: He is oriented [...] He exhibits distension. He exhibits no mass. Tenderness (RLQ) is present. He has no rebound and no guarding. Genitourinary: Examined for hernia; palpated what feels like very enlarged inguinal ring a nd very tender. Musculoskeletal: Normal range of motion. He exhibits no edema. Neurological: He is alert and oriented to person, place, and time. Skin: Skin is warm and dry. Psychiatric: He has a normal mood and affect. ASSESSMENT and PLAN: 1. Acute bronchitis (466.0) DEXAMETHASONE SODIUM PHOSPHATE 4 MG/ML INJECTION, M ETHYLPREDNISOLONE ACETATE 80 MG/ML INJECTION 2. Right inguinal hernia (550.90) DEXAMETHASONE SODIUM PHOSPHATE 4 MG/ML INJECT ION, METHYLPREDNISOLONE ACETATE 80 MG/ML INJECTION, AMB REFERRAL TO GENERAL SURG LEN Attempt to reduce cough and strain on groin with dec/depo and tessalon perls. N eeds short term follow up with surgeon to assess hernia further; advised to retu rn if he has persistent emesis (was able to keep down breakfast this am). Discu ssed risks of strangulation as well. Differential includes simple abdominal wal l strain as well as kidney stone; latter unlikely based on presentation. Appoin tment made for tomorrow at [address] Colon. Advised to come to ED if worsening. Discussed with the patient and all questioned fully answered. He will call me if any problems arise. documented in this encounter Plan of Treatment Order Schedule Name Type Priority Associated Diag noses Ordered: 01/27/2012 AMB REFERRAL TO GENERAL Outpatient Routine Right inguinal hernia SURGERY Referral documented as of this encounter Visit Diagnoses Diagnosis Acute bronchitis Right inguinal hernia Inguinal hernia without mention of obst ruction or gangrene, unilateral or unspecified, (not specified as recurrent) documented in this encounter
--- OUTSIDE RECORDS SUMMARY | 2020-03-24 14:37 | XMS REPORT | Encounter Summary ---
Author Author [facility] Organization [facility] Address Unknown Phone Unavailable Care Team Providers Care Pallet Repairer Name Role Phone Shahram Mccallum MD PCP Unavailable Encounter Details Care Team Description Date Type Department Shahram Mccallum MD NO ADDRESS ON FILE 01/06/2012 Abstract [facility] Primar y Care [place] [address] [place] [phone] Social History Date Tobacco Use Types Packs/Day [...]
--- OUTSIDE RECORDS SUMMARY | 2020-03-24 14:37 | XMS REPORT | Encounter Summary ---
Author Author [facility] Organization [facility] Address Unknown Phone Unavailable Care Team Providers Care Payroll Examiner Name Role Phone Shahram Mccallum MD PCP Unavailable Reason for Visit * Reason Comments Medication Refill Encounter Details Care Team Description Date Type Department Shahram Mccallum MD NO ADDRESS ON FILE 12/15/[address] [facility] Primar y Care [address] [id number] Social History Date Tobacco Use Types Packs/Day [...]
--- OUTSIDE RECORDS SUMMARY | 2020-03-24 14:37 | XMS REPORT | Encounter Summary ---
Author Author [facility] Organization [facility] Address Unknown Phone Unavailable Care Team Providers Care Professional Shopper Name Role Phone Shahram Mccallum MD PCP Unavailable Reason for Visit * Reason Comments Possible Hernia rt. ing. hernia, ref. by Dr Monzon * Eval and Treat (Routine) Referred By Contact Referred To Contact Status Reason Specialty Diagnoses / Procedures Aries Fraser MD [address] [place] [address] [facility] [address] [place] [address] Closed Surgery / Diagnoses General Surgery Right inguinal hernia Encounter Details Care Team Description Date Type Department VandemereAndres [facility] [address] [place] [address] Inguinal strain (Primary Dx) 01/28/2012 [facility] [place] [address] [place] [address] Social History Date Tobacco Use [...] Signs Reading Time Taken Comments Vital Sign 120/56 01/28/2012 4:04 PM CDT Blood Pressure 64 01/28/2012 4:04 PM CDT Pulse 36.1 C (96.9 F) 01/28/2012 4:04 PM CDT Temperature - - Respiratory Rate - - Oxygen Saturation - - Inhaled Oxygen Concentration 98 kg (216 lb) 01/28/2012 4:04 PM CDT Weight 167.6 cm (5' 6") 01/28/2012 4:04 PM CDT Height 34.86 01/28/2012 4:04 PM CDT Body Mass Index documented in this encounter Progress Notes * Andres Colon, DO - 01/28/2012 7:26 PM CDT Oliverio Dalton is a 61 y.o. male referred for evaluation of R inguinal pain b y Dr. Fraser. Coughing spell over last week has caused increasing R inguinal pain Past Medical History Diagnosis Date Wrist sprain [...] 02/01/2009 COLONOSCOPY performed by BEULAH MOORE at [facility] OR hernia repair 1988 And age 4 Hx lap cholecystectomy 05/17/07 Hx coronary artery bypass graft Hx heart catheterization 04/10 With angioplasty, 2 stents Current Outpatient Prescriptions Medication Sig Dispense Refill dexamethasone (DECADRON) 4 mg/mL Injection Soln Inject 1 mL by intramuscular injection one time only for 1 dose. 1 mL 0 methylPREDNISolone Acetate (DEPO-MEDROL) 80 mg/mL Injection Susp Inject 1 mL by intramuscular injection one time only for 1 dose. 1 mL 0 benzonatate (TESSALON) 200 mg Oral capsule Take 1 Cap by mouth every 4 hours as needed for Cough. 30 Cap 0 doxycycline hyclate (VIBRAMYCIN) 100 mg Oral capsule Take 1 Cap by mouth 2 t imes daily for 10 days. 20 Cap 0 zolpidem (AMBIEN) 10 mg Oral tablet [...] P ain. Allergies Allergen Reactions Codeine Unknown Phenobarbital Weakness "relaxes me too much" Piperacillin-Tazobactam [...] Healthy Son Healthy Son Healthy Son History Smoking status Former Smoker -- 4.0 packs/day for 40 years Types: Cigarettes Quit date: 03/08/1995 Smokeless tobacco Never Used History Alcohol Use No REVIEW OF SYSTEMS: Cardiovascular: positive for chest pain, chest pressure/discomfort, claudication , diaphoresis. Gastrointestinal: negative for abdominal pain, blood, change in bowel habits and constipation. Respiratory: positive for cough, negative for hemoptysis. PHYSICAL EXAM: BP 120/56 | Pulse 64 | Temp 96.9 F (36.1 C) | Ht 5' 6" (1.676 m) | Wt 216 lb (97.977 kg) | BMI 34.86 kg/m2 Lungs: clear to auscultation bilaterally, normal respiratory effort Heart: normal rate, regular rhythm, normal S1, S2, no murmurs, rubs, clicks or g allops Abdomen: Soft, non-tender. Bowel sounds normal. No masses, no organomegaly. Inguinal area on Right palpated tender but no bulge appreciated DATA REVIEW: No results found for this or any previous visit (from the past 336 hour(s)). ASSESSMENT: Inguinal strain PLAN: No surgery at this time return for any increasing pain or bulge documented in this encounter Plan of Treatment Not on filedocumented as of this encounter Visit Diagnoses Diagnosis Inguinal strain - Primary Sprain and strain of unspecified site o f hip and thigh documented in this encounter
--- OUTSIDE RECORDS SUMMARY | 2020-03-24 14:37 | XMS REPORT | Encounter Summary ---
Author Author [facility] Organization [facility] Address Unknown Phone Unavailable Care Team Providers Care Farm Technician Name Role Phone Shahram Mccallum MD PCP Unavailable Encounter Details Care Team Description Date Type Department Shahram Mccallum MD NO ADDRESS ON FILE [facility], Lab Schedule 04/13/2012 [facility] General Encounter Laboratory Services [address] [phone] Social History Date Tobacco Use [...] mg by 0 Oral capsule mouth daily. 04/13/2012 04/26/2012 doxycycline hyclate Take 1 Cap by 20 Cap 0 (VIBRAMYCIN) 100 mg Oral mouth 2 times capsuleIndications: daily. Cellulitis of hand 04/05/2012 05/03/2012 zolpidem (AMBIEN) 10 mg Take 1 Tab by 30 Tab 0 Oral tablet mouth nightly as needed for Insomnia. 04/05/2012 05/03/2012 pioglitazone (ACTOS) 30 Take 1 Tab by 30 Tab 0 mg Oral tablet mouth daily. 03/01/2012 03/21/2013 clopidogrel (PLAVIX) 75 [...] mg mouth 2 times Oral tablet daily. 04/26/2012 ramipril (ALTACE) 10 mg Take 10 mg by 0 Oral capsule mouth daily. 11/10/2011 05/09/2013 nitroglycerin (NITROSTAT) Place 1 Tab 25 Tab 0 0.4 mg Sublingual Subl under tongue every 5 minutes as needed for Chest Pain. 10/20/2011 04/19/2012 phenytoin (PHENYTEK) 200 Take 1 Cap by 60 Cap 5 mg Oral Cap mouth 2 times daily. In the morning and at bedtime. 08/04/2011 06/23/2012 oxaprozin (DAYPRO) 600 mg Take [...] Cap 11 Oral capsule by mouth daily. 05/05/2011 05/03/2012 metoprolol succinate ER Take 1 Tab by 30 Tab 11 24 hour (TOPROL XL) 25 mg mouth daily. Oral tablet 09/10/2010 10/18/2012 LORazepam (ATIVAN) 1 mg Take [...] Associated Diag nosis CBC WITH DIFFERENTIAL Routine 04/13/2012 Other co nvulsions 7:31 AM CDT HEMOGLOBIN A1C Routine 04/13/2012 DM w/o complica tion type 7:31 AM CDT I LIPID PANEL Routine 04/13/2012 Hyperlipidemia 7:31 AM CDT COMPREHENSIVE METABOLIC Routine 04/13/2012 Hyperl ipidemia PANEL 7:31 AM CDT documented in this encounter Results * LIPID PANEL (04/13/2012 7:31 AM CDT) [facility] CHOLESTEROL 210 (H) 140 - 200 mg/dl [facility] [place] TRIGLYCERIDE 323 (H) 0 - 199 mg/dl [facility] Comment: LABORATORY REFERENCE RANGE - [facility] [place] NORMAL LESS THAN 150 mg/dl BORDERLINE HIGH 150 - 199 mg/dl HIGH 200 - 499 mg/dl VERY HIGH GREATER THAN OR = 500 mg/dl HDL 43 27 - 67 mg/dl [facility] [place] LDL CALCULATED 102 <130 mg/dl [facility] Comment: LABORATORY SERVICES - [facility] RISK CATEGORY LDL GOAL High risk: <100 mg/dl CHD or CHD risk equivalents (optional goal: <70 mg/dl) (10-year risk > 20%) Moderately high risk <130 mg/dl 2+ risk factors (10-year risk 10% to 20%) Moderate risk: <130 mg/dl 2+ risk factors (10-year risk < 10%) Lower risk: <160 mg/dl 0-1 risk factor [facility] ACCT#[id number], ,,,, Specimen Blood specimen (specimen) Performing Organization Address City/State/[facility] Ph one Number [facility] [employer] [facility] CLIA# [id number] [place] [address] - [place] [address] [place], [place] [address]Elis [employer] SERVICES CLIA# [id number] [place] [address] - [place] [address] [place] [address] * HEMOGLOBIN A1C (04/13/2012 7:31 AM CDT) HEMOGLOBIN A1C 6.9 (H) 0 - 6.0 % [facility] [employer] [facility] - [place] GLUCOSE, MEAN 153Comment: DRAKEKS mg/dl [facility] BLOOD ACCT#[id number], ,,,, LABORATORY SERVICES - [place] Specimen Blood specimen (specimen) Performing Organization Address City/[facility] Ph one Number [facility] LABOR[facility]ORY SERVICES CLIA# [id number] [place] [address] - [place] [address] [place] [address] LABORATORY SERVICES CLIA# [id number] [place] [address] - [place] [address] [place] [address] * COMPREHENSIVE METABOLIC PANEL (04/13/2012 7:31 AM CDT) [facility] GLUCOSE 149 (H) 70 - 100 mg/dl [facility] LAB[facility]ATORY SERVICES - [place] BUN 21.0 (H) 7 - 20 mg/dl [facility]ORY [facility] - [place] CREATININE 0.97 0.8 - 1.3 mg/dl [facility] LAB[facility]ATORY SERVICES - [place] BUN/CREAT RATIO 21.6 (H) 10 - 20 [facility]ORY [facility] - [place] GFR 83 >60 ml/min [facility] - [place] SODIUM 139 134 - 145 mmol/L [facility]ATORY SERVICES - [place] POTASSIUM 4.6 3.3 - 4.8 mmol/L [facility] LABORATORY SERVICES - [facility] CHLORIDE 103 98 - 107 mmol/L [facility] LABORATORY SERVICES - [place] CO2 30.4 22 - 31 mmol/L [facility] LAB[facility]ATORY SERVICES - [place] ANION GAP 10 4 - 20 [facility] LABORATORY SERVICES - [place] CALCIUM 8.8 8.5 - 10.1 mg/dl [facility] LABORATORY SERVICES - [place] ALBUMIN 3.8 3.4 - 5.0 g/dl [facility] LABORATORY SERVICES - [facility] TOTAL PROTEIN 7.0 6.4 - 8.2 g/dl [facility] LABORATORY SERVICES - [place] GLOBULIN (CALC) 3.2 [facility] - [facility] ALBUMIN/GLOBULI 1.2 [facility] LABORATORY SERVICES - [facility] BILIRUBIN TOTAL 0.3 <1.1 mg/dl [facility] LABORATORY SERVICES - [place] ALKALINE 83 50 - 136 IU/L [facility] PHOSPHATASE LABORATORY SERVICES - [place] AST 17 10 - 40 IU/L [facility] LABORATORY SERVICES - [place] ALT 35Comment: [facility] 25 - 70 IU/L M ERCY ACCT#[id number], ,,,, LABORATORY SERVICES - [place] Specimen Blood specimen (specimen) Performing Organization Address City/State/Zipcode Ph one Number [facility] LABORATORY SERVICES CLIA# [id number] [place] [address] - [place] [address] [place] [address] LABORATORY SERVICES CLIA# [id number] [place] [address] - [place] [address] [place] [address] * CBC WITH DIFFERENTIAL (04/13/2012 7:31 AM CDT) [facility] WBC 5.93 3.0 - 10.4 x10E3 [facility] [place] RBC 4.60 4.15 - 5.75 x10E6 [facility] [place] HEMOGLOBIN 13.1 (L) 13.8 - 17.4 g/dL [facility] [place] HEMATOCRIT 39.2 38.6 - 49.4 % [facility] [place] MCV 85.3 79 - 100 fL [facility] [place] MCH 28.5 28 - 34 pg [facility] [place] MCHC 33.4 31 - 35 g/dL [facility] [place] RDW 13.5 12.1 - 14.1 % [facility] [place] PLATELETS 297 148 - 408 x10E3 [facility] [place] MPV 8.3 7.4 - 10.6 fL [facility] [place] NEUTROPHILS 61.6 43 - 73 % [facility] [place] LYMPHOCYTES 30.0 19 - 47 % [facility] [place] MONOCYTES 5.4 3 - 9 % [facility] [place] EOSINOPHILS 2.6 0 - 6 % [facility] [place] BASOPHILS 0.4 0 - 1.2 % [facility] [place] NEUTROPHIL 3.65 1.3 - 7.6 x10E3 [facility] [place] LYMPHOCYTE 1.79 0.6 - 4.9 x10E3 [facility] [place] MONOCYTE 0.32 0.1 - 0.9 x10E3 [facility] - [place] EOSINOPHIL 0.16 0.0 - 0.2 x10E3 [facility] - [place] BASOPHILS 0.02Comment: [facility] LYNN 0 - 0.1 x10E3 [facility] ACCT#[id number], ,,,, LABORATORY SERVICES - [place] Specimen Blood specimen (specimen) Performing Organization Address City/State/Zipcode Ph one Number [facility] LABORATORY SERVICES CLIA# [id number] [place] [address] - [address] LABORATORY SERVICES CLIA# [id number] [place] [address] - [address] documented in this encounter Visit Diagnoses Diagnosis Other convulsions Hyperlipidemia Other and unspecified hyperlipidemia 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
--- OUTSIDE RECORDS SUMMARY | 2020-03-24 14:37 | XMS REPORT | Encounter Summary ---
Author Author [facility] Organization [facility] Address Unknown Phone Unavailable Care Team Providers Care Cotton Farmworker Name Role Phone Shahram Mccallum MD PCP Unavailable Reason for Visit * Reason Comments Cholesterol Problem Hypertension Encounter Details Care Team Description Date Type Department Shahram Mccallum MD NO ADDRESS ON FILE Cellulitis of hand (Primary Dx); DM w/o complication type I; Cor athrscl-uns vessel; Chronic airway obstruction, not elsewhere classified; Unspecified essential hypertension; Anemia; Hyperlipidemia; Other convulsions 04/13/2012 Office Visit [facility] Primar y Care [address] [phone] Social History Date Tobacco Use Types Packs/Day [...] Signs Reading Time Taken Comments Vital Sign 146/78 04/13/2012 9:08 AM CDT Blood Pressure 70 04/13/2012 9:08 AM CDT Pulse - - Temperature - - Respiratory Rate - - Oxygen Saturation - - Inhaled Oxygen Concentration 102.1 kg (225 lb) 04/13/2012 9:08 AM CDT Weight 167.6 cm (5' 6") 04/13/2012 9:08 AM CDT Height 36.32 04/13/2012 9:08 AM CDT Body Mass Index documented in this encounter Progress Notes * Shahram Mccallum MD - 04/13/2012 9:33 AM CDT Subjective: Oliverio Dalton is [...] (methicillin resistant staph aureus) culture positive V02.54 Current Outpatient Prescriptions on File Prior to Visit Medication Sig Dispense Refill zolpidem (AMBIEN) 10 mg Oral tablet Take 1 Tab by mouth nightly as needed fo r Insomnia. 30 Tab 0 pioglitazone (ACTOS) 30 mg Oral tablet Take 1 Tab by mouth daily. 30 Tab 0 fluticasone (FLONASE) 50 mcg/spray Both Nostril SpSn [...] Lab Results Component Value Date HEMOGLOBIN A1C 6.9* 04/13/2012 HEMOGLOBIN A1C 6.4* 12/10/2011 HEMOGLOBIN A1C 6.2* 08/04/2011 MICROALBUMIN, URINE 17.7 11/24/2010 LDL CALCULATED 102 04/13/2012 LDL CHOLESTEROL, DIRECT 125 12/10/2011 CREATININE 0.97 04/13/2012 Lab Results Component Value Date CHOLESTEROL 210* 04/13/2012 CHOLESTEROL 217* 12/10/2011 CHOLESTEROL 223* 08/04/2011 HDL 43 04/13/2012 HDL 51 12/10/2011 HDL 52 08/04/2011 LDL CALCULATED 102 04/13/2012 LDL CALCULATED 0 06/29/2008 LDL CALCULATED 0 04/26/2006 LDL CHOLESTEROL, DIRECT 125 12/10/2011 LDL CHOLESTEROL, DIRECT 123 08/04/2011 LDL CHOLESTEROL, DIRECT 125 04/02/2011 TRIGLYCERIDE 323* 04/13/2012 TRIGLYCERIDE 348* 12/10/2011 TRIGLYCERIDE 226* 08/04/2011 ALT 35 04/13/2012 AST 17 04/13/2012 Lab Results Component Value Date CREATININE 0.97 04/13/2012 BUN 21.0* 04/13/2012 SODIUM 139 04/13/2012 POTASSIUM 4.6 04/13/2012 CHLORIDE 103 04/13/2012 CO2 30.4 04/13/2012 GFR 83 04/13/2012 Lab Results Component Value Date WBC 5.93 04/13/2012 HEMOGLOBIN 13.1* 04/13/2012 HEMATOCRIT 39.2 04/13/2012 PLATELETS 297 04/13/2012 MCV 85.3 04/13/2012 Lab Results Component Value Date ALT 35 04/13/2012 AST 17 04/13/2012 ALKALINE PHOSPHATASE 83 04/13/2012 BILIRUBIN TOTAL 0.3 04/13/2012 HPI: Mr. Dalton complains of the following (by systems): Arthritis symptoms: diffuse arthralgias Chest Pain symptoms: none Depression like symptoms: depressed mood, difficulty concentrating and stable Diabetes Type II complaints: patient is asymptomatic, is compliant with meds a nd diet; glucose monitoring is usually in normal ranges Hypertension related symtoms/issues: taking medications as instructed, no side effects of medications, no chest pain on exertion, no dyspnea on exertion, no ed lian recent recurrent excoraited rash and cellulitis R hand No complications related to lipids or lipid therapy. Review of Systems: ROS has all of the following chronically but not acutely: Headache Dizziness Chest pain: occ post prandial pain relieved with ntg. Will limit post meal exer cise Shortness of breath Bowel changes Bladder changes Pain in muscle or joints Is still sexually active Exam/Objective: Normal Exam for Routine Visits: \\Blood pressure 146/78, pulse 70, height 5' 6" ( 1.676 m), weight 225 lb (102.059 kg). General appearance: healthy appearing, active, alert, [...] and Plan: ASSESSMENT: Encounter Diagnoses Name Primary? Cellulitis of hand Yes DM w/o complication type I Cor athrscl-uns vessel Chronic airway obstruction, not elsewhere classified Unspecified essential hypertension Anemia Hyperlipidemia Other convulsions PLAN: Orders Placed This Encounter CMP (4 MONTHS X 1) LIPID PANEL (4 MONTHS X 1) HEMOGOLBIN A1C (4 MONTHS X1) MICROALBUMIN/CREATININE RATIO, RANDOM UR (4 MONTHS X 1) PHENYTOIN TOTAL doxycycline hyclate (VIBRAMYCIN) 100 mg Oral capsule discussed diet and exercise Still has help with [employer] Appropriate medications prescribed (see detailed AVS). Appropriate [...] (08/15/2012 8:43 AM CDT) MICROALBUMIN, 32.2 mg/L [facility] URINE LABORATORY [facility] - [place] Creatinine, 104 40 - 278 mg/dl [facility] Urine LABORATORY SERVICES - [facility] MICROALBUMIN/CR 30.9 (H) <30 ug/mg [facility], UR Comment: LABORATORY UNITS OF MEASURE: ug/mg [facility] [place] [employer] DEFINES ABNORMALITIES IN ALBUMIN EXCRETION FOLLOWS: CATEGORY RESULT (ug/mg Creatinine) NORMAL < 30 MICROALBUMINURIA 30 - 299 CLINICAL ALBUMINURIA > OR = 300 THE ADA RECOMMENDS THAT AT LEAST TWO OF THREE SPECIMENS COLLECTED WITHIN A 3-6 MONTH PERIOD BE ABNORMAL BEFORE CONSIDERING A PATIENT TO BE WITHIN A DIAGNOSTIC CATEGORY. GAB JUAN ACCT#[id number], ,,,, Specimen Urine specimen (specimen) Performing Organization Address [facility] one [facility] LABORATORY SERVICES CLIA# [id number] GAB [place] [address] [place] [address] [place] [address] LABORATORY SERVICES CLIA# [id number] [place] [address] [place] [address] [place] [address] * PHENYTOIN LEVEL, TOTAL (08/15/2012 8:40 AM CDT) PHENYTOIN TOTAL 25.2 (H)Comment: 10 - 20 ug/ml [facility] ACCT#[id number], ,,,, SERVICES - [place] Specimen Blood specimen (specimen) Performing Organization Address [facility] one [facility] LABORATORY SERVICES CLIA# [id number] G[place] [facility] [phone] [place] [address] [place] [address] LABORATORY SERVICES CLIA# [id number] [place] [address] * HEMOGLOBIN A1C (08/15/2012 8:40 AM CDT) HEMOGLOBIN A1C 6.8 (H) 0 - 6.0 % [facility] LABORATORY SERVICES - [place] GLUCOSE, MEAN 149Comment: [facility] mg/dl [facility] BLOOD ACCT#[id number], ,,,, LABORATORY SERVICES - [place] Specimen Blood specimen (specimen) Performing Organization Address [facility] LABORATORY SERVICES CLIA# [id number] [place] [facility] [phone] [place] [address] [place] [address] LABORATORY SERVICES CLIA# [id number] [place] [address] * LIPID PANEL (08/15/2012 8:40 AM CDT) CHOLESTEROL 214 (H) 140 - 200 mg/dl [facility] LABORATORY SERVICES - [place] TRIGLYCERIDE 345 (H) 0 - 199 mg/dl [facility] Comment: LABORATORY REFERENCE RANGE - SERVICES - [place] NORMAL LESS THAN 150 mg/dl BORDERLINE HIGH 150 - 199 mg/dl HIGH 200 - 499 mg/dl VERY HIGH GREATER THAN OR = 500 mg/dl HDL 42 27 - 67 mg/dl [facility] SERVICES - [place] LDL CALCULATED 103 <130 mg/dl [facility] Comment: LABORATORY SERVICES - [place] RISK CATEGORY LDL GOAL High risk: <100 mg/dl CHD or CHD risk equivalents (optional goal: <70 mg/dl) (10-year risk > 20%) Moderately high risk <130 mg/dl 2+ risk factors (10-year risk 10% to 20%) Moderate risk: <130 mg/dl 2+ risk factors (10-year risk < 10%) Lower risk: <160 mg/dl 0-1 risk factor GAB JUAN ACCT#[id number], ,,,, Specimen Blood specimen (specimen) Performing Organization Address City/[facility] Ph one Number [facility] LABORATORY SERVICES CLIA# [id number] G[place] [address] - [place] [address] [place] [address] LABORATORY SERVICES CLIA# [id number] [place] [address] - [place] [address] [place] [address] * COMPREHENSIVE METABOLIC PANEL (08/15/2012 8:40 AM CDT) GLUCOSE 158 (H) 70 - 100 mg/dl [facility] LABORATORY SERVICES - [facility] BUN 33.0 (H) 7 - 20 mg/dl [facility] LABORATORY SERVICES - [facility] CREATININE 1.04 0.8 - 1.3 mg/dl [facility] LABORATORY SERVICES - [place] BUN/CREAT RATIO 31.7 (H) 10 - 20 [facility] LABORATORY SERVICES - [place] GFR 77 >60 ml/min [facility] LABORATORY SERVICES - [place] SODIUM 135 134 - 145 mmol/L [facility] LABORATORY SERVICES - [place] POTASSIUM 4.1 3.3 - 4.8 mmol/L [facility] LABORATORY SERVICES - [facility] CHLORIDE 103 98 - 107 mmol/L [facility] LABORATORY SERVICES - [place] CO2 24.9 22 - 31 mmol/L [facility] LABORATORY SERVICES - [facility] ANION GAP 11 4 - 20 [facility] LABORATORY SERVICES - [place] CALCIUM 8.4 (L) 8.5 - 10.1 mg/dl [facility] LABORATORY SERVICES - [place] ALBUMIN 4.0 3.4 - 5.0 g/dl [facility] LABORATORY SERVICES - [facility] TOTAL PROTEIN 7.1 6.4 - 8.2 g/dl [facility] LABORATORY SERVICES - [place] GLOBULIN (CALC) 3.1 [facility] LABORATORY SERVICES - [facility] ALBUMIN/GLOBULI 1.3 [facility] LABORATORY SERVICES - [facility] BILIRUBIN TOTAL 0.2 <1.1 mg/dl [facility] LABORATORY SERVICES - [place] ALKALINE 70 50 - 136 IU/L [facility] PHOSPHATASE LABORATORY SERVICES - [place] AST 16 10 - 40 IU/L [facility] LABORATORY SERVICES - [place] ALT 34Comment: [facility] 25 - 70 IU/L [facility] ACCT#[id number], ,,,, LABORATORY SERVICES - [place] Specimen Blood specimen (specimen) Performing Organization Address City/[facility] Ph one Number [facility] LABORATORY SERVICES CLIA# [id number] G[place] [address] [address] [address] LABORATORY SERVICES CLIA# [id number] [place] [address] - [address] documented in this encounter Visit Diagnoses Diagnosis Cellulitis of hand - Primary Cellulitis and abscess of hand, except fingers and thumb 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
--- OUTSIDE RECORDS SUMMARY | 2020-03-24 14:37 | XMS REPORT | Encounter Summary ---
Author Author [facility] Organization [facility] Address Unknown Phone Unavailable Care Team Providers Care Business Services Analyst Name Role Phone Shahram Mccallum MD PCP Unavailable Reason for Visit * Reason Comments Medication Refill Encounter Details Care Team Description Date Type Department Shahram Mccallum MD NO ADDRESS ON FILE 12/22/2011 Refill [facility] Primar y Care [address] [phone] Social History Date Tobacco Use Types Packs/Day [...]
--- OUTSIDE RECORDS SUMMARY | 2020-03-24 14:37 | XMS REPORT | Encounter Summary ---
Author Author [facility] Organization [facility] Address Unknown Phone Unavailable Care Team Providers Care Data Center Consultant Name Role Phone Shahram Mccallum MD PCP Unavailable Reason for Visit * Reason Comments Follow Up Encounter Details Care Team Description Date Type Department Walter Oconnor MD [address] [place] [address] 320/330 DONNA Chao [phone] Cor athrscl-uns vessel; Unspecified essential hypertension; DM w/o complication type I; Hyperlipidemia; Chronic airway obstruction, not elsewhere classified; Bipolar disorder, unspecified 12/14/2011 Office Visit [facility] [address] [place] [address] Social History Date Tobacco Use [...] Signs Reading Time Taken Comments Vital Sign 122/64 12/14/2011 1:08 PM [employer] ENGINEER Blood Pressure 66 12/14/2011 1:08 PM [employer] SE[employer] ENGINEER regular Pulse - - Temperature - - Respiratory Rate - - Oxygen Saturation - - Inhaled Oxygen Concentration 102.5 kg (226 lb) 12/14/2011 1:08 PM [employer] SE[employer] ENGINEER Weight 167.6 cm (5' 6") 12/14/2011 1:08 PM [employer] SE[employer]ATION PLANT ENGINEER Height 36.48 12/14/2011 1:08 PM [employer] SE[employer] ENGINEER Body Mass Index documented in this encounter Progress Notes * Walter Oconnor MD - 12/14/2011 1:19 PM [employer] ENGINEER HISTORY OF PRESENT ILLNESS Oliverio Dalton, a 61 y.o. male. HPI The patient presents for follow-up of coronary artery disease. Since the last vi sit he has had some chest pain associated with an upset stomach. He went to the ER recently for these symptoms. His evaluation was unremarkable. His medicatio ns and most recent lab have been reviewed. Dr. Mccallum manages his labs for him. The patient's past medical, social and family history were reviewed. Current Outpatient Prescriptions on File Prior to Visit Medication Sig Dispense Refill predniSONE (DELTASONE) 20 mg Oral tablet Take 2 Tabs by mouth daily with latosha akfast for 5 days. Next dose due on Wednesday12/13/2011 10 Tab None nitroglycerin (NITROSTAT) 0.[address] 1 Tab under tongue ev len 5 minutes as needed for Chest Pain. 25 Tab prn phenytoin (PHENYTEK) 200 mg Oral Cap Take 1 Cap by mouth 2 times daily. In t he morning and at bedtime. 60 Cap 5 zolpidem (AMBIEN) 10 mg Oral tablet Take 1 Tab by mouth nightly as needed fo r Insomnia. 30 Tab 2 oxaprozin (DAYPRO) 600 mg Oral tablet Take [...] glargine (LANTUS) 100 unit/mL subCUT Soln Inject by subcutaneous in jection. 20 units at hs 10 mL 5 loratadine (CLARITIN) 10 mg Oral tablet Take 1 Tab by mouth daily. 30 Tab 11 isosorbide mononitrate SR 24 hour (IMDUR) 60 mg Oral tablet Take 1 Tab by mo uth 2 times daily. 60 Tab 11 esomeprazole (NEXIUM) 40 mg Oral CpDR Take 1 Cap by mouth daily before break fast. 30 Cap 11 magnesium oxide 250 mg [...] Drop in both eyes 2 times daily. rifampin (RIFADINE) 300 mg Oral capsule Take 1 Cap by mouth every 12 hours. 20 Cap 0 LORazepam (ATIVAN) 1 mg Oral tablet Take 1 Tab by mouth 2 times daily. 60 T ab 2 FLONASE 50 mcg/Actuation Both Nostril SpSn Administer 2 Sprays in each nostr il daily. ACCU-CHEK ACTIVE TEST Strp by See Admin Instructions route 2 times daily. In the am & pm prn TYLENOL 325 mg Oral Tab Take 1-2 Tabs by mouth every 4 hours as needed for P ain. REVIEW OF SYSTEMS Review of Systems Constitutional: [...] urgency, frequency and hematuria. Musculoskeletal: Positive for myalgias and arthralgias. Negative for back pain a nd gait problem. Skin: Negative for color change and pallor. Neurological: Negative for dizziness, syncope, facial asymmetry, speech difficul ty, weakness, light-headedness and headaches. Hematological: Does not bruise/bleed easily. Psychiatric/Behavioral: Negative for behavioral problems and confusion. PHYSICAL EXAM BP 122/64 | Pulse 66 | Ht 5' 6" (1.676 m) | Wt 226 lb (102.513 kg) | BMI 36.48 k g/m2 Physical Exam Constitutional: He is oriented to [...] and intact distal pulses. Exam reve als no gallop and no friction rub. Murmur heard. Systolic murmur is present with a grade of 1/6 Pulmonary/Chest: Effort normal. No respiratory distress. He has decreased breath sounds. He has no wheezes. He has no rhonchi. He has no rales. Abdominal: Soft. Normal appearance and bowel sounds are normal. No tenderness. Musculoskeletal: Normal range of motion. He exhibits no edema and no tenderness. Neurological: He is alert and oriented to person, place, and time. Skin: Skin is warm and dry. Abrasion noted. No rash noted. No erythema. Psychiatric: He has a normal mood and affect. His behavior is normal. Judgment n ormal. ASSESSMENT and PLAN: 1. Cor athrscl-uns vessel (414.00) 2. Unspecified essential hypertension (401.9) 3. DM w/o complication type I (250.01) 4. Hyperlipidemia (272.4) 5. Chronic airway obstruction, not elsewhere classified (496) 6. Bipolar disorder, unspecified (296.80) Same medication; his symptoms are stable. Lab per primary Next visit 9 months ON [employer] ENGINE[employer] documented in this encounter Plan of Treatment Not on filedocumented as of this encounter Visit Diagnoses Diagnosis Coronary atherosclerosis of unspecified type of vessel, [place] or graft Unspecified essential hypertension Type I (juvenile type) diabetes mellitu s without mention of complication, not stated as uncontrolled Hyperlipidemia Other and unspecified hyperlipidemia Chronic airway obstruction, not elsewhe re classified Bipolar disorder, unspecified documented in this encounter
--- OUTSIDE RECORDS SUMMARY | 2020-03-24 14:37 | XMS REPORT | Encounter Summary ---
Author Author [facility] Organization [facility] Address Unknown Phone Unavailable Care Team Providers Care Metal Wire Coating Operator Name Role Phone Shahram Mccallum MD PCP Unavailable Reason for Visit * Reason Comments Medication Refill Encounter Details Care Team Description Date Type Department Shahram Mccallum MD NO ADDRESS ON FILE 03/15/2012 Refill [facility] Primar y Care [address] [phone] Social History Date Tobacco Use Types Packs/Day [...]
--- OUTSIDE RECORDS SUMMARY | 2020-03-24 14:37 | XMS REPORT | Encounter Summary ---
Author Author [facility] Organization [facility] Address Unknown Phone Unavailable Care Team Providers Care Tanning Solution Maker Name Role Phone Shahram Mccallum MD PCP Unavailable Reason for Visit * Reason Comments Medication Refill Encounter Details Care Team Description Date Type Department Shahram Mccallum MD NO ADDRESS ON FILE 04/05/2012 Refill [facility] Primar y Care [address] [phone] Social History Date Tobacco Use Types Packs/Day [...]
--- OUTSIDE RECORDS SUMMARY | 2020-03-24 14:37 | XMS REPORT | Encounter Summary ---
Author Author [facility] Organization [facility] Address Unknown Phone Unavailable Care Team Providers Care Outdoor Studies Professor Name Role Phone Shahram Mccallum MD PCP Unavailable Reason for Visit * Reason Comments Medication Refill Encounter Details Care Team Description Date Type Department Shahram Mccallum MD NO ADDRESS ON FILE 02/23/2012 Refill [facility] Primar y Care [address] [phone] Social History Date Tobacco Use Types Packs/Day [...]
--- OUTSIDE RECORDS SUMMARY | 2020-03-24 14:37 | XMS REPORT | Encounter Summary ---
Author Author [facility] Organization [facility] Address Unknown Phone Unavailable Care Team Providers Care Drama Teacher Name Role Phone Shahram Mccallum MD PCP Unavailable Encounter Details Care Team Description Date Type Department Shahram Mccallum MD NO ADDRESS ON FILE [facility], Lab Schedule 01/11/2012 [facility] General Encounter Laboratory Services [address] [phone] Social History Date Tobacco Use [...] mg by 0 Oral capsule mouth daily. 12/22/2011 04/05/2012 zolpidem (AMBIEN) 10 mg Take 1 Tab by 30 Tab 2 Oral tablet mouth nightly as needed for Insomnia. 12/22/2011 12/27/2012 esomeprazole (NEXIUM) 40 Take 1 [...] XL) 25 mg mouth daily. Oral tablet 04/07/2011 04/05/2012 pioglitazone (ACTOS) 30 Take 1 Tab by 30 Tab 11 mg Oral tablet mouth daily. 03/10/2011 03/01/2012 clopidogrel (PLAVIX) 75 Take 1 Tab by 30 Tab 11 mg Oral Tab mouth daily. 03/03/2011 02/23/2012 loratadine (CLARITIN) 10 Take 1 Tab by 30 Tab 11 mg Oral tablet mouth daily. 09/10/2010 10/18/2012 LORazepam (ATIVAN) 1 mg Take 1 Tab by 60 Tab 2 Oral tablet mouth 2 times daily. 03/15/2012 FLONASE 50 mcg/Actuation Administer 2 0 Both Nostril SpSn Sprays in each nostril daily. 12/29/2007 07/12/2012 ZETIA 10 mg Oral [...] Associated Diag nosis PHENYTOIN LEVEL, TOTAL Routine 01/11/2012 Elevate d Dilantin level 8:46 AM HUB BORER documented in this encounter Results * PHENYTOIN LEVEL, TOTAL (01/11/2012 8:46 AM HUB BORER) PHENYTOIN TOTAL 20.1 (H)Comment: 10 - 20 ug/ml [facility] ACCT#[id number], ,,,, SERVICES - [place] Specimen Blood specimen (specimen) Performing Organization Address City/State/Zipcode Ph one Number [facility] LABORATORY SERVICES CLIA# [id number] [place], [place] [address] [address] LABORATORY SERVICES CLIA# [id number] [place] [address] documented in this encounter Visit Diagnoses Diagnosis Elevated Dilantin level Other abnormal blood chemistry documented in this encounter
--- OUTSIDE RECORDS SUMMARY | 2020-03-24 14:38 | XMS REPORT | Encounter Summary ---
Author Author [facility] Organization [facility] Address Unknown Phone Unavailable Care Team Providers Care Assurance Engineer Name Role Phone Shahram Mccallum MD PCP Unavailable Reason for Visit * Reason Comments Medication Refill Encounter Details Care Team Description Date Type Department Shahram Mccallum MD NO ADDRESS ON FILE 08/04/2011 Refill [facility] Primar y Care [address] [phone] Social History Date Tobacco Use Types Packs/Day [...]
--- OUTSIDE RECORDS SUMMARY | 2020-03-24 14:38 | XMS REPORT | Encounter Summary ---
Author Author [facility] Organization [facility] Address Unknown Phone Unavailable Care Team Providers Care Environmental Director Name Role Phone Shahram Mccallum MD PCP Unavailable Reason for Visit * Reason Comments Medication Refill Encounter Details Care Team Description Date Type Department Shahram Mccallum MD NO ADDRESS ON FILE 09/29/2011 Refill [facility] Primar y Care [address] [phone] Social History Date Tobacco Use Types Packs/Day [...]
--- OUTSIDE RECORDS SUMMARY | 2020-03-24 14:38 | XMS REPORT | Encounter Summary ---
Author Author [facility] Organization 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) GLUCOSE UA 30 (H) Negative mg/dl [facility] BILIRUBIN UA Negative Negative [facility] KETONES UA Negative Negative mg/dl [facility] SPECIFIC 1.010 [facility] GRAVITY UA [facility] PH UA 7.0 [facility] PROTEIN UA Negative Negative mg/dl [facility] UROBILINOGEN UA <2.0 0.2 - 1.0 EU/dl [facility] NITRITE UA Negative Negative [facility] BLOOD UA Negative Negative [facility] LEUKOCYTE Negative Negative [facility] ESTERASE UA [facility] COLOR UA Yellow [facility] CLARITY UA Clear [facility] WBC UA 0-2 0 - 5 /HPF [facility] [place] [facility] RBC UA 0-2 0 - 2 /HPF [facility] [place] [facility] MUCOUS, URINE Light /LPF [facility] [place] [facility] EPITHELIAL Rare squamous [facility] CELLS, URINE [facility] [place] [facility] AMORPHOUS 1+Comment[facility] Negative /HPF [facility] ACCT#[id number], ,,,, [facility] [place] [facility] Specimen Urine, clean catch Performing Organization Address City/State/Zipcode Ph one Number [facility] CLIA# [id number] [place] [address] - [place] [address] [facility] CLIA# [id number] [place] [address] [facility] [facility] 401 [facility] documented in this encounter Visit Diagnoses Diagnosis Hematuria - Primary Hematuria, unspecified documented in this encounter
--- OUTSIDE RECORDS SUMMARY | 2020-03-24 14:38 | XMS REPORT | Encounter Summary ---
Author Author [facility] Organization [facility] Address Unknown Phone Unavailable Care Team Providers Care Tire Specialist Name Role Phone Shahram Mccallum MD PCP Unavailable Reason for Visit * Reason Comments Diabetes lab results Cholesterol Problem Encounter Details Care Team Description Date Type Department Shahram Mccallum MD NO ADDRESS ON FILE DM w/o complication type I; Cor athrscl-uns vessel; Other convulsions; Hyperlipidemia; Unspecified essential hypertension 12/10/2011 Office Visit [address] [phone] Social History Date Tobacco Use Types Packs/Day [...] Signs Reading Time Taken Comments Vital Sign 142/68 12/10/2011 9:17 AM INFORMATION SUPPORT PROJECT MANAGER Blood Pressure 60 12/10/2011 9:17 AM INFORMATION SUPPORT PROJECT MANAGER Pulse - - Temperature - - Respiratory Rate - - Oxygen Saturation - - Inhaled Oxygen Concentration 98.9 kg (218 lb) 12/10/2011 9:17 AM INFORMATION SUPPORT PROJECT MANAGER Weight 166.4 cm (5' 5.5") 12/10/2011 9:17 AM INFORMATION SUPPORT PROJECT MANAGER Height 35.73 12/10/2011 9:17 AM INFORMATION SUPPORT PROJECT MANAGER Body Mass Index documented in this encounter Progress Notes * Shahram Mccallum MD - 12/10/2011 10:03 AM INFORMATION SUPPORT PROJECT MANAGER Subjective: Oliverio Dalton is a 61 y.o. male. Patient Active Problem List Diagnoses Code DM w/o complication type I 250.01 Cor athrscl-uns vessel 414.00 Unspecified essential hypertension 401.9 Other Convulsions 780.39 Chronic airway obstruction, not elsewhere classified 496 Unspecified Retention of Urine 788.20 BPH w/o Urinary Obs/LUTS 600.00 Neurogenic Bladder, NOS 596.54 Unspecified Glaucoma 365.9 Unspecified Asthma 493.90 Other Specified Forms of Chronic Ischemic Heart Disease 414.8 Bipolar Disorder, Unspecified 296.80 Hyperlipidemia 272.4 Anemia 285.9 Follow-Up Examination, Following Unspecified Surgery V67.00 Tubular Adenoma 229.9 Personal History of Colonic Polyps V12.72 Cellulitis 682.9 MRSA (methicillin resistant staph aureus) culture positive V02.54 Current Outpatient Prescriptions on File Prior to Visit Medication Sig Dispense Refill nitroglycerin (NITROSTAT) 0.[address] [...] daily before break fast. 30 Cap 11 rifampin (RIFADINE) 300 mg Oral [...] Lab Results Component Value Date HEMOGLOBIN A1C 6.4* 12/10/2011 HEMOGLOBIN A1C 6.2* 08/04/2011 HEMOGLOBIN A1C 6.5* 04/02/2011 MICROALBUMIN, URINE 17.7 11/24/2010 LDL CALCULATED 0 06/29/2008 LDL CHOLESTEROL, DIRECT 123 08/04/2011 CREATININE 1.04 08/04/2011 Lab Results Component Value Date CHOLESTEROL 223* 08/04/2011 CHOLESTEROL 227* 04/02/2011 CHOLESTEROL 215* 11/24/2010 HDL 52 08/04/2011 HDL 47 04/02/2011 HDL 46 11/24/2010 LDL CALCULATED 0 06/29/2008 LDL CALCULATED 0 04/26/2006 LDL CHOLESTEROL, DIRECT 123 08/04/2011 LDL CHOLESTEROL, DIRECT 125 04/02/2011 LDL CHOLESTEROL, DIRECT 124 11/24/2010 TRIGLYCERIDE 226* 08/04/2011 TRIGLYCERIDE 348* 04/02/2011 TRIGLYCERIDE 280* 11/24/2010 ALT 59 08/04/2011 AST 40 08/04/2011 Lab Results Component Value Date CREATININE 1.04 08/04/2011 BUN 26.0* 08/04/2011 SODIUM 139 08/04/2011 POTASSIUM 4.3 08/04/2011 CHLORIDE 104 08/04/2011 CO2 27.7 08/04/2011 GFR 77 08/04/2011 Lab Results Component Value Date ALT 59 08/04/2011 AST 40 08/04/2011 ALKALINE PHOSPHATASE 62 08/04/2011 BILIRUBIN TOTAL 0.2 08/04/2011 HPI: Mr. Dalton complains of the following (by systems): Arthritis symptoms: diffuse arthralgias and stable Chest Pain symptoms: occ vague chest discomft with exercise but stable and not p rogressive COPD related symtoms: dyspnea, cough, increased sputum and stable without progre ssion. still limiting Diabetes Type II complaints: medication compliance: compliant most of the time , diabetic diet compliance: noncompliant some of the time, home glucose monitori ng: is performed regularly, irratic probably related to poor diet consistency Hypertension related symtoms/issues: taking medications as instructed, no side effects of medications, no chest pain on exertion, no dyspnea on exertion, no ed lian No complications related to lipids or lipid therapy. Review of Systems: ROS Denies all of the following:acutely changed Headache Dizziness Chest pain Shortness of breath Bowel changes Bladder changes Pain in muscle or joints Exam/Objective: Normal Exam for Routine Visits: \\Blood pressure 142/68, pulse 60, height 5' 5.5" (1.664 m), weight 218 lb (98.884 kg). General appearance active, alert, cooperative, social, normally nourished, and i n no acute distress Lungs: breath sounds equal, clear, diminished to auscultation bilaterally, no re tractions, no stridor, normal respiratory effort Heart: regular rate and rhythm, S1, S2 normal, no murmur, click, rub, gallop, or abnormal sounds. Abdomen: soft, non-tender. Bowel sounds normal. No masses, no organomegaly. Ac tive bowel sounds. Extremities: symmetrical non edematous. Assessment and Plan: ASSESSMENT: Encounter Diagnoses Name Primary? DM w/o complication type I Cor athrscl-uns vessel Other convulsions Hyperlipidemia Unspecified essential hypertension PLAN: Orders Placed This Encounter CMP (4 MONTHS X 1) LIPID PANEL (4 MONTHS X 1) HEMOGOLBIN A1C (4 MONTHS X1) CBC WITH DIFFERENTIAL (4 MONTHS X 1) Labs still pending but overall doing better Appropriate medications prescribed (see detailed AVS). Appropriate patient instructions provided (see detailed AVS). Follow-up as I have indicated. Medications and options explained to include common side effects. Understanding of medications, course, diagnosis, and expectations were expressed by patient/g uardian. RMATION SUPPORT PROJECT MANAGER documented in this encounter Plan of Treatment Not on filedocumented as of this encounter Results * CBC WITH DIFFERENTIAL (04/13/2012 7:31 AM CDT) WBC 5.93 3.0 - 10.4 x10E3 [facility] [place] RBC 4.60 4.15 - 5.75 x10E6 [facility] [place] HEMOGLOBIN 13.1 (L) 13.8 - 17.4 g/dL [facility] [place] HEMATOCRIT 39.2 38.6 - 49.4 % [facility] [place] MCV 85.3 79 - 100 fL [facility] [place] MCH 28.5 28 - 34 pg [facility] [place] MCHC 33.4 31 - 35 g/dL [facility] [place] RDW 13.5 12.1 - 14.1 % [facility] [place] PLATELETS 297 148 - 408 x10E3 [facility] [place] MPV 8.3 7.4 - 10.6 fL [facility] [place] NEUTROPHILS 61.6 [...] [place] MONOCYTE 0.32 0.1 - 0.9 x10E3 [facility] [place] EOSINOPHIL 0.16 0.0 - 0.2 x10E3 [facility] [place] BASOPHILS 0.02Comment: [facility] 0 - 0.1 x10E3 [facility] ACCT#[id number], ,,,, [facility] [place] Specimen Blood specimen (specimen) Performing Organization Address [facility] Ph one Number [facility] CLIA# [id number] [place] [facility] [phone] - [place] [address] [place] [address] LABORATORY SERVICES CLIA# [id number] [place] [address] * HEMOGLOBIN A1C (04/13/2012 7:31 AM CDT) HEMOGLOBIN A1C 6.9 (H) 0 - 6.0 % [facility] [place] GLUCOSE, MEAN 153Comment: [facility] [place] mg/dl [facility] ACCT#[id number], ,,,, [facility] - [place] Specimen Blood specimen (specimen) Performing Organization Address [facility] one [facility] LABORATORY SERVICES CLIA# [id number] [place] [facility] [phone] - [facility] [address] [place] [address] LABORATORY SERVICES CLIA# [id number] [place] [address] * LIPID PANEL (04/13/2012 7:31 AM CDT) CHOLESTEROL 210 (H) 140 - 200 mg/dl [facility] [place] TRIGLYCERIDE 323 (H) 0 - 199 mg/dl [facility] Comment: LABORATORY REFERENCE RANGE - [facility] [place] NORMAL LESS THAN 150 mg/dl BORDERLINE HIGH 150 - 199 mg/dl HIGH 200 - 499 mg/dl VERY HIGH GREATER THAN OR = 500 mg/dl HDL 43 27 - 67 mg/dl [facility] [place] LDL CALCULATED 102 <130 mg/dl [facility] Comment: LABORATORY SERVICES - [facility] RISK CATEGORY LDL GOAL High risk: <100 mg/dl CHD or CHD risk equivalents (optional goal: <70 mg/dl) (10-year risk > 20%) Moderately high risk <130 mg/dl 2+ risk factors (10-year risk 10% to 20%) Moderate risk: <130 mg/dl 2+ risk factors (10-year risk < 10%) Lower risk: <160 mg/dl 0-1 risk factor [facility] ACCT#[id number], ,,,, Specimen Blood specimen (specimen) Performing Organization Address City/State/[facility] one Number [facility] CLIA# [id number] [place] [address] - [place] [address] [place] [address] LABORATORY SERVICES CLIA# [id number] [place] [address] - [facility] [address] [place] [address] * COMPREHENSIVE METABOLIC PANEL (04/13/2012 7:31 AM CDT) [facility] Signature GLUCOSE 149 (H) 70 - 100 mg/dl [facility] [place] BUN 21.0 (H) 7 - 20 mg/dl [facility] [place] CREATININE 0.97 0.8 - 1.3 mg/dl [facility] [place] BUN/CREAT RATIO 21.6 (H) 10 - 20 [facility] [place] GFR 83 >60 ml/min [facility] [place] SODIUM 139 134 - 145 mmol/L [facility] [place] POTASSIUM 4.6 3.3 - 4.8 mmol/L [facility] [place] CHLORIDE 103 98 - 107 mmol/L [facility] [place] CO2 30.4 22 - 31 mmol/L [facility] [place] ANION GAP 10 4 - 20 [facility] [place] CALCIUM 8.8 8.5 - 10.1 mg/dl [facility] [place] ALBUMIN 3.8 3.4 - 5.0 g/dl [facility] [place] TOTAL PROTEIN 7.0 6.4 - 8.2 g/dl [facility] [place] GLOBULIN (CALC) 3.2 [facility] [place] ALBUMIN/GLOBULI 1.2 [facility] N [facility] [place] BILIRUBIN TOTAL 0.3 <1.1 mg/dl [facility] [place] ALKALINE 83 50 - 136 IU/L [facility] [place] AST 17 10 - 40 IU/L [facility] [place] ALT 35Comment: [facility] 25 - 70 IU/L [facility] ACCT#[id number], ,,,, [facility] [place] Specimen Blood specimen (specimen) Performing Organization Address City/State/Zipcode Ph one Number [facility] CLIA# [id number] [place] [address] - [place] [address] [place] [address] LABORATORY SERVICES CLIA# [id number] [place] [address] - [facility] [address] [place] [address] documented in this encounter Visit Diagnoses Diagnosis Type I (juvenile type) diabetes mellitu s without mention of complication, not stated as uncontrolled Coronary atherosclerosis of unspecified type of vessel, [place] or graft Other convulsions Hyperlipidemia Other and unspecified hyperlipidemia Unspecified essential hypertension documented in this encounter
--- OUTSIDE RECORDS SUMMARY | 2020-03-24 14:38 | XMS REPORT | Encounter Summary ---
Author Author [facility] Organization [facility] Address Unknown Phone Unavailable Care Team Providers Care Web Operations Administrator Name Role Phone Shahram Mccallum MD PCP Unavailable Reason for Visit * Reason Comments Medication Refill Encounter Details Care Team Description Date Type Department Shahram Mccallum MD NO ADDRESS ON FILE 11/10/2011 Refill [facility] Primar y Care [address] [phone] Social History Date Tobacco Use Types Packs/Day [...]
--- OUTSIDE RECORDS SUMMARY | 2020-03-24 14:38 | XMS REPORT | Encounter Summary ---
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
--- OUTSIDE RECORDS SUMMARY | 2020-03-24 14:38 | XMS REPORT | Encounter Summary ---
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 New order for zpak e-scribed to [facility] OL HEALTH ASSISTANT documented in this encounter Plan of Treatment Not on filedocumented as of this encounter Visit Diagnoses Not on filedocumented in this encounter
--- OUTSIDE RECORDS SUMMARY | 2020-03-24 14:38 | XMS REPORT | Encounter Summary ---
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 PT states that he frequently has chest darinel n that ussually goes away after a few minetes, but today he seem to be mo re sob with this pain episode and came to er for evaluation. PT denies p ain upon arrival to ER. Encounter Details Care Team Description Date Type Department Zeke Abarca MD [address] [place] [address] COPD exacerbation; Hypomagnesemia 12/12/2011 Emergency [facility] Emergency Department [address] [address] Social History Date Tobacco Use [...] Signs Reading Time Taken Comments Vital Sign 100/49 12/12/2011 12:21 PM [employer] [employer] Blood Pressure 71 12/12/2011 12:21 PM [employer] Pulse 36.8 C (98.3 F) 12/12/2011 10:07 AM [employer] Temperature 18 12/12/2011 12:21 PM [employer] Respiratory Rate 99% 12/12/2011 12:21 PM [employer] Oxygen Saturation - - Inhaled Oxygen Concentration 98 kg (216 lb) 12/12/2011 10:07 AM [employer] Weight 167.6 cm (5' 6") 12/12/2011 10:07 AM [employer] Height 34.86 12/12/2011 10:07 AM [employer] Body Mass Index documented in this encounter Discharge Instructions * Patient Instructions* Willy Scanning, Him - 12/14/2011 11:50 AM [employer] Electronically signed by Interface, Bong Aok Transcriptions Incoming at 11:50 AM [employer] * Additional Instructions* Zeke Abarca MD - 12/12/2011 Your magnesium level was a little low as well so you were given an IV dose of th is to help raise it up as well as a first dose of steroids. * Attachments The following attachments cannot be sent through Care Everywhere.* COPD EXACERBATION PLAN: AFTER YOUR VISIT (TAMAZIGHT) documented in this encounter Medications at Time of Discharge Start Date End Date Medication Sig Dispensed Refills 12/29/2007 BETIMOL 0.5 % OP Drop Administer 1 0 Drop in both eyes 2 times daily. 06/30/2011 08/10/2012 FLUoxetine (PROZAC) 20 mg Take 20 mg by 0 Oral capsule mouth daily. 12/12/2011 12/17/2011 predniSONE (DELTASONE) 20 Take 2 Tabs 10 Tab 0 mg Oral tablet by mouth daily with breakfast for 5 days. Next dose due on Wednesday12/13/2011 11/10/2011 05/09/2013 nitroglycerin (NITROSTAT) Place 1 Tab 25 Tab 0 0.4 mg Sublingual Subl under tongue every 5 minutes as needed for Chest Pain. 10/20/2011 04/19/2012 phenytoin (PHENYTEK) 200 Take 1 Cap by 60 Cap 5 mg Oral Cap mouth 2 times daily. In the morning and at bedtime. 09/29/2011 12/22/2011 zolpidem (AMBIEN) 10 mg Take 1 Tab by 30 Tab 2 Oral tablet mouth nightly as needed for Insomnia. 08/04/2011 06/23/2012 oxaprozin (DAYPRO) 600 mg Take [...] Tab 11 mg Oral Tab mouth daily. 03/09/2011 12/22/2011 insulin glargine (LANTUS) Inject by 10 mL 5 100 unit/mL subCUT Soln subcutaneous injection. 20 units at hs 03/03/2011 02/23/2012 loratadine (CLARITIN) 10 Take 1 Tab by 30 Tab 11 mg Oral tablet mouth daily. 12/15/2010 12/15/2011 isosorbide mononitrate SR Take 1 Tab by 60 Tab 11 24 hour (IMDUR) 60 mg mouth 2 times Oral tablet daily. 12/15/2010 12/22/2011 esomeprazole (NEXIUM) 40 Take 1 Cap by 30 Cap 11 mg Oral CpDR mouth daily before breakfast. 09/10/2010 10/18/2012 LORazepam (ATIVAN) 1 mg Take [...] this encounter Procedure Notes * Aok Scanning, Him - 12/15/2011 7:33 AM [employer] Associated Order(s): EKG 12-LEAD Electronically signed by Interface, Bong Aok Transcriptions Incoming at 2 7:33 AM [employer] * Willy ChavesRajan - 12/14/2011 2:09 PM [employer] Associated Order(s): EKG 12-LEAD Electronically signed by Interface, Bong Aok Transcriptions Incoming at 2 2:09 PM [employer] * David Ferrer MD - 12/14/2011 11:19 AM [employer] Associated Order(s): EKG 12-LEAD [facility]. [address] [facility]. [place], [place] [address] EKG OLIVERIO DALTON OU [id number] 12/12/11 at 1013. The rhythm is regular , sinus in origin with a rate of 82 beats per minute. ID interval is borderline prolonged. T waves are flattened across the tracing with T wave inversion in lat eral limb leads. No old tracings are available for comparison. Diagnosis: 1) Sin us rhythm, rate 82 beats per minute 2) Nonspecific T wave changes. Dictated by S.VKarlosW. Dictated by: EKG DD 12/14/11 TD 12/14/11/LRG EKG REPORT # [id number] ORDER # [employer] documented in this encounter ED Notes * Aly Nance RN - 12/12/2011 10:39 AM [employer] Pt resting on cart without complaint. [employer] * Zeke Abarca MD - 12/12/2011 10:11 AM [employer] HISTORY OF PRESENT ILLNESS Oliverio Dalton, a 61 y.o. male presents to the ED with a Chief Complaint of Ch est Pain HPI Comments: He woke up with pressure in his chest and got sick to his stomach. He says this feels different than when he has had heart issues in the past. He has a pain in the back of his neck as well. This has gradually improved since he got up but he wanted to come get it checked out. Patient is a 61 y.o. male presenting with shortness of breath. The history is pr ovided by the patient. Shortness of Breath This is a chronic problem. The problem occurs continuously.The current episode s tarted 3 to 5 hours ago. The problem has been gradually improving. Associated sy mptoms include neck pain, cough, chest pain (pressure in chest) and vomiting. Pe rtinent negatives include no fever, no headaches, no coryza, no rhinorrhea, no s ore throat, no swollen glands, no ear pain, no sputum production, no hemoptysis, no wheezing, no syncope, no abdominal pain, no rash, no leg pain and no leg swe lling. It is unknown what precipitated the problem. Associated medical issues in clude COPD, chronic lung disease, CAD and past DE. REVIEW OF SYSTEMS Review of Systems Constitutional: Negative for fever and chills. HENT: Positive for neck pain. Negative for ear pain, sore throat, rhinorrhea and neck stiffness. Eyes: Negative for visual disturbance. Respiratory: Positive for cough, chest tightness and shortness of breath. Negati ve for hemoptysis, sputum production and wheezing. Cardiovascular: Positive for chest pain (pressure in chest). Negative for palpit ations, leg swelling and syncope. Gastrointestinal: Positive for nausea and vomiting. Negative for abdominal pain. Genitourinary: Negative for dysuria. Musculoskeletal: Negative for gait problem. Skin: Negative for rash. Neurological: Negative for dizziness, weakness, light-headedness, numbness and h eadaches. PAST MEDICAL HISTORY REVIEWED Past Medical History Diagnosis Date Wrist sprain 08/10 Rt. Contusion, back 08/16/03 Fall Cataract Unspecified disease of respiratory system Glaucoma Asthma Diabetes Seizure disorder Unspecified disorder of lipoid metabolism Coronary artery disease Chronic ischemic heart disease, unspecified Unspecified essential hypertension Past Surgical History Procedure Date Hx surgical [...] 02/01/2009 COLONOSCOPY performed by BEULAH MOORE at [facility] OR Hx hernia repair 1988 And age 4 Hx heart catheterization 04/10 With angioplasty, 2 stents Hx lap cholecystectomy 05/17/07 Family History Problem Relation Age of Onset Other Mother Blood pressure Diabetes Mother Respiratory Disease Mother Asthma Mother Other Sister Blood pressure Diabetes Sister Respiratory Disease Sister Heart Disease Sister Asthma Sister Lung Cancer Brother Seizures Brother Other Father "brain anuerysm" Healthy Daughter Heart Disease Son Healthy Daughter Healthy Daughter Healthy Son Healthy Son Healthy Son Healthy Son History Social History Main Topics Smoking status: Former Smoker -- 4.0 packs/day for 40 years Types: Cigarettes Quit date: 03/08/1995 Smokeless tobacco: Never Used Alcohol Use: No Drug Use: Yes Special: Prescription Drugs Sexually Active: Not Currently Patient Active Problem List Diagnoses Date Noted MRSA (methicillin resistant staph aureus) culture positive 09/12/2010 Cellulitis 09/10/2010 Personal History of Colonic Polyps 02/06/2009 Tubular Adenoma 02/05/2009 Follow-Up Examination, Following Unspecified Surgery 02/01/2009 Hyperlipidemia 11/12/2008 Anemia 11/12/2008 DM w/o complication type I Cor athrscl-uns vessel Unspecified essential hypertension Other Convulsions Chronic airway obstruction, not elsewhere classified Unspecified Retention of Urine BPH w/o Urinary Obs/LUTS Neurogenic Bladder, NOS Unspecified Glaucoma Unspecified Asthma Other Specified Forms of Chronic Ischemic Heart Disease Bipolar Disorder, Unspecified ALLERGIES Codeine; Phenobarbital; Piperacillin-tazobactam; Terazosin; and Valium HOME MEDICATIONS Patient's Home Medications New Prescriptions for this Encounter PREDNISONE (DELTASONE) 20 MG ORAL TABLET Take 2 Tabs by mouth daily with [facility] for 5 days. Next dose due on Wednesday12/13/2011 Current Home Medications ACCU-CHEK ACTIVE TEST STRP [...] 1000 mg by mouth 3 times daily. FLONASE 50 MCG/ACTUATION BOTH NOSTRIL SPSN Administer 2 Sprays in each nostr il daily. FLUOXETINE (PROZAC) 20 MG ORAL CAPSULE Take 2 Caps by mouth daily. INSULIN GLARGINE (LANTUS) 100 UNIT/ML SUBCUT SOLN Inject by subcutaneous in jection. 20 units at hs ISOSORBIDE MONONITRATE SR [...] TABLET Take 1 Tab by mouth daily. RIFAMPIN (RIFADINE) 300 MG ORAL CAPSULE Take 1 Cap by mouth every 12 hours. SIMVASTATIN (ZOCOR) 80 MG ORAL TABLET Take 1 Tab by mouth daily at bedtime. TAMSULOSIN (FLOMAX) 0.4 MG ORAL CAPSULE Take [...] this Encounter PHYSICAL EXAM Initial Vitals BP 12/12/11 1007 97/77 mmHg Pulse 12/12/11 1007 80 Resp 12/12/11 1007 20 Temp 12/12/11 1007 98.3 F (36.8 C) Temp src 12/12/11 1007 Oral SpO2 12/12/11 1007 98 % Physical Exam Nursing note and [...] and normal heart sounds. Pulmonary/Chest: Effort normal. No respiratory distress. He has decreased breath sounds. He has no wheezes. He has no rales. He exhibits no tenderness. Abdominal: Soft. Bowel sounds are normal. He exhibits no distension and no mass. No tenderness. He has no rebound and no guarding. Musculoskeletal: He exhibits no edema. Neurological: He is alert and oriented to person, place, and time. Skin: Skin is warm and dry. He is not diaphoretic. DIAGNOSTICS LAB: Results for orders placed during the hospital encounter of 12/12/11 (from the [facility] 24 hour(s)) CBC WITH DIFFERENTIAL Component Value Range WBC 5.28 3.0 - 10.4 (x10E3) RBC 4.51 4.15 - 5.75 (x10E6) HEMOGLOBIN 13.1 (*) 13.8 - 17.4 (g/dL) HEMATOCRIT 38.0 (*) 38.6 - 49.4 (%) MCV 84.3 79 - 100 (fL) MCH 29.1 28 - 34 (pg) MCHC 34.5 32 - 35 (g/dL) RDW 14.3 (*) 12.1 - 14.1 (%) PLATELETS 301 148 - 408 (x10E3) MPV 6.6 (*) 7.4 - 10.6 (fL) NEUTROPHILS 66.4 43 - 73 (%) LYMPHOCYTES 26.1 19 - 47 (%) MONOCYTES 5.1 3 - 9 (%) EOSINOPHILS 2.0 0 - 6 (%) BASOPHILS 0.4 0 - 1.2 (%) NEUTROPHIL ABSOLUTE 3.51 1.3 - 7.6 (x10E3) LYMPHOCYTE ABSOLUTE 1.38 0.6 - 4.9 (x10E3) MONOCYTE ABSOLUTE 0.27 0.1 - 0.9 (x10E3) EOSINOPHIL ABSOLUTE 0.10 0.0 - 0.2 (x10E3) BASOPHILS ABSOLUTE 0.02 0 - 0.1 (x10E3) BRAIN NATRIURETIC PEPTIDE, BNP OR PROBNP Component Value Range BRAIN NATRIURETIC PEPTIDE 101 0 - 125 (pg/ml) MAGNESIUM LEVEL Component Value Range MAGNESIUM 1.6 (*) 1.8 - 2.4 (mg/dl) PTT Component Value Range PTT 26 24 - 33 (Sec) PROTIME-INR Component Value Range PROTIME 12.1 (*) 9.8 - 11.1 (Sec) INR 1.18 (*) 2.0 - 3.0 COMPREHENSIVE METABOLIC PANEL Component Value Range GLUCOSE 231 (*) 70 - 100 (mg/dl) BUN 27.0 (*) 7 - 20 (mg/dl) CREATININE 1.03 0.8 - 1.3 (mg/dl) BUN/CREAT RATIO 26.2 (*) 10 - 20 GFR 78 >60 (ml/min) SODIUM 138 134 - 145 (mmol/L) POTASSIUM 4.0 3.3 - 4.8 (mmol/L) CHLORIDE 101 98 - 107 (mmol/L) CO2 27.0 22 - 31 (mmol/L) ANION GAP 14 4 - 20 CALCIUM 8.4 (*) 8.5 - 10.1 (mg/dl) ALBUMIN 3.9 3.4 - 5.0 (g/dl) TOTAL PROTEIN 6.9 6.4 - 8.2 (g/dl) GLOBULIN (CALC) 3.0 ALBUMIN/GLOBULIN RATIO 1.3 BILIRUBIN TOTAL 0.4 <1.1 (mg/dl) ALKALINE PHOSPHATASE 73 50 - 136 (IU/L) AST 22 10 - 40 (IU/L) ALT 37 25 - 70 (IU/L) MYOGLOBIN Component Value Range MYOGLOBIN, PLASMA 26 16 - 97 (ng/ml) TROPONIN Component Value Range TROPONIN I LESS THAN 0.04 0 - 0.4 (ng/ml) RADIOLOGY: XR CHEST PA OR AP ED Interpretation: No acute process. Stable from old xray 09/11/2010 EKG: PROCEDURES Procedures REEVALUATION MEDICAL DECISION MAKING AND PLAN OF CARE Last vitals BP 137/69 | Pulse 85 | Temp(Src) 98.3 F (36.8 C) (Oral) | Resp 20 | Ht 5' 6" (1.676 m) | Wt 97.977 kg | BMI 34.86 kg/m2 | SpO2 97% MDM Coding Reviewed: nursing note, vitals and previous chart Reviewed previous: labs, ECG and x-ray Interpretation: labs, ECG and x-ray Check labs and try a duoneb for his breathing. Will also get ECG and cardiac lab s since he has a strong cardiac history. Patient doing better after duoneb breathing treatment and some ivf. He was give n IV magnesium as well and started on steroids for his breathing. Follow up with his doctor if not doing better this week or return to ER if worse ns. CLINICAL IMPRESSION Encounter Diagnoses Code Name Primary? 491.21 COPD exacerbation 275.2 Hypomagnesemia CASE DISCUSSED PATIENT COUNSELING Diagnostics reviewed and questions answered. Diagnosis, treatment options and p brianna of care discussed with understanding verbalized. DISPOSITION, EDUCATION AND MEDICATION RECONCILIATION Medications reconciled. See after visit summary for patient education on discha rged patients. [employer] documented in this encounter Plan of Treatment Not on filedocumented as of this encounter Procedures Comments Procedure Name Priority Date/Time Associated Diag nosis EKG 12-LEAD Stat 12/15/2011 7:33 AM [employer] CARDIAC ENZYMES Stat 12/12/2011 10:15 PM [employer] TROPONIN Stat 12/12/2011 10:15 PM [employer] CARDIAC INTERPRETATION (6 Stat 12/12/2011 HR) 4:15 PM [employer] TROPONIN Stat 12/12/2011 4:15 PM [employer] CARDIAC INTERPRETATION (3 Stat 12/12/2011 HR) 1:15 PM [employer] TROPONIN Stat 12/12/2011 1:15 PM [employer] MYOGLOBIN Stat 12/12/2011 1:15 PM [employer] XR CHEST PA OR AP 1 VW Stat 12/12/2011 10:38 AM [employer] CBC WITH DIFFERENTIAL Stat 12/12/2011 10:20 AM [employer] PTT Stat 12/12/2011 10:20 AM [employer] PROTIME-INR Stat 12/12/2011 10:20 AM [employer] TROPONIN Stat 12/12/2011 10:20 AM [employer] BRAIN NATRIURETIC Stat 12/12/2011 PEPTIDE, BNP OR PROBNP 10:20 AM [employer] MYOGLOBIN Stat 12/12/2011 10:20 AM [employer] MAGNESIUM LEVEL Stat 12/12/2011 10:20 AM [employer] COMPREHENSIVE METABOLIC Stat 12/12/2011 PANEL 10:20 AM [employer] documented in this encounter Results * EKG 12-LEAD (12/15/2011 7:33 AM [employer]) Narrative Performed At This result has an attachment that is n ot available. Transcriptions David Bernard MD - 12/14/2011 11:19 AM [employer] [facility]. [address] [place] [address]. [place], [place] [address] EKG OLIVERIO DALTON [id number] 12/12/11 at 1013. The rhythm is regular, sinus in origin with a rate of 82 beats per minute. ID interval is borderline prolonged. T waves are flattened across the tracing with T wave inversion in lateral limb leads. No old tracings are available for comparison. Diagnosis: 1) Sinus rhythm, rate 82 beats per minute 2) Nonspecific T wave changes. Dictated by SAshley. Dictated by: EKG DD 12/14/11 TD 12/14/11/LRG EKG REPORT # [id number] ORDER # 12/14/2011 2:09 PM [employer] 12/15/2011 7:33 AM [employer] * TROPONIN (12/12/2011 10:15 PM [employer]) TROPONIN I Test not performedComment: 0 - 0.4 ng/ml [facility]#[id number], ,,,, [facility] Specimen Narrative Performed At CARDIAC TROP-12HR TROP-12 HR from 0204:[id number]. [facility] CARDIAC Final: FINAL from 0204:[id number]. [facility] Performing Organization Address [facility] one [facility] LABORATORY SERVICES CLIA# [id number] GAB JEFFERSON [address] - [place] [facility] [address] [place] [address] [place] CLIA# [id number] Leonides JEFFERSON [address] [facility] [address] [place] [address] * CARDIAC ENZYMES (12/12/2011 10:15 PM [employer]) INTERPRETATION See below. [facility] Comment: CENTER [place] INTERPRETATION - 12/13/11 0821 [facility] Single set of cardiac markers is not indicative of acute DE. Linda Cerrato. [facility]ANER[facility] ACCT#[id number], ,,,, Specimen Blood specimen (specimen) Narrative Performed At CARDIAC TROP-12HR TROP-12 HR from 0204:[id number]. [facility] CARDIAC Final: FINAL from 0204:[id number]. [facility] Performing Organization Address [facility] one [place] LABORATORY SERVICES CLIA# [id number] GAB JEFFERSON [address] - [place] [facility] [address] [place] [address] [place] CLIA# [id number] Leonides JEFFERSON [address] * CARDIAC INTERPRETATION (6 HR) (12/12/2011 4:15 PM [facility] [employer]) INTERPRETATION Test not performedComment: [facility] ACCT#[id number], ,,,, [facility] Specimen Narrative Performed At CARDIAC TROP-6HR TROP-6 HR from 0204:[id number]. [facility] CARDIAC Interim: CAR6 from 0204:[id number]. [facility] Performing Organization Address [facility] one [place] LABORATORY SERVICES CLIA# [id number] GAB JEFFERSON [address] - [place] [facility] [address] [place] [address] [place] CLIA# [id number] Leonides JEFFERSON [address] [facility] [address] [place] [address] * TROPONIN (12/12/2011 4:15 PM [employer]) TROPONIN I Test not performedComment: 0 - 0.4 ng/ml [facility] [place] ACCT#[id number], ,,,, [facility] Specimen Narrative Performed At CARDIAC TROP-6HR TROP-6 HR from 0204:[id number]. [facility] CARDIAC Interim: CAR6 from 0204:[id number]. [facility] Performing Organization Address [facility], [facility] one [facility] LABORATORY SERVICES CLIA# [id number] [place], [place] [address] [address] [place] CLIA# [id number] Leonides JEFFERSON S [address] * CARDIAC INTERPRETATION (3 HR) (12/12/2011 1:15 PM [employer]) INTERPRETATION Test not performedComment: [facility] [place] ACCT#[id number], ,,,, [facility] Specimen Narrative Performed At CARDIAC NYLA-3HR NYLA-3 HR from 0204:[id number]. [facility] CARDIAC TROP-3HR TROP-3 HR from 0204:[id number]. [facility] CARDIAC Interim: CAR3 from 0204:[id number] S. Performing Organization Address [facility] one [facility] LABORATORY SERVICES CLIA# [id number] [place] [address] [address] [place] CLIA# [id number] Leonides JEFFERSON S [address] * TROPONIN (12/12/2011 1:15 PM [employer]) TROPONIN I Test not performedComment: 0 - 0.4 ng/ml [facility] [place] ACCT#[id number], ,,,, [facility] Specimen Narrative Performed At CARDIAC NYLA-3HR NYLA-3 HR from 0204:[id number]. [facility] CARDIAC TROP-3HR TROP-3 HR from 0204:[id number]. [facility] CARDIAC Interim: CAR3 from 0204:[id number] S. Performing Organization Address [facility] one [place] [facility] LABORATORY SERVICES CLIA# [id number] GAB JEFFES[place] [address] - [facility] [address] [place] [address] [place] CLIA# [id number] Leonides [place] [address] [facility] [address] [place] [address] * MYOGLOBIN (12/12/2011 1:15 PM [employer]) MYOGLOBIN, Test not performedComment: 16 - 97 ng/ml [facility] ACCT#[id number], ,,,, [facility] Specimen Narrative Performed At CARDIAC NYLA-3HR NYLA-3 HR from 0204:[id number]. [facility] CARDIAC TROP-3HR TROP-3 HR from 020:[id number]. [facility] CARDIAC Interim: CAR3 from 0204:[id number] S. Performing Organization Address [facility] one [place] [facility] LABORATORY SERVICES CLIA# [id number] GAB JEFFERSON [address] - [place] [address] [place] [address] CLIA# [id number] Leonides JEFF[place] [address] [facility] [address] [place] [address] * XR CHEST PA OR AP (12/12/2011 10:38 AM [employer]) Specimen Impressions Performed At : No acute cardiopulmonary disease. Narrative Performed At PORTABLE CHEST: HISTORY: Shortness of breath. Exam is compared to the prior exam of 11-11-09. The patient is status post median sternotomy. The cardiac silhou ette and pulmonary vascularity are normal. No infiltrates or masses are seen. No pneumothorax. Procedure Note Oliverio Muhammad MD - 12/14/2011 11:36 AM [employer] PORTABLE CHEST: HISTORY: Shortness of breath. Exam is compared to the prior exam of 09-11-10. The patient is status post median sternotomy. The cardiac silhouette and pulmonary vascularity are normal. No infiltrates or masses are seen. No pneumothorax. IMPRESSION: No acute cardiopulmonary disease. * TROPONIN (12/12/2011 10:20 AM [employer]) TROPONIN I LESS THAN 0.04Comment: 0 - 0.4 ng/ml [facility] ACCT#[id number], ,,,, [facility] Specimen Narrative Performed At CARDIAC NYLA-0HR NYLA-0 HR from 0204:[id number]. [facility] CARDIAC TROP-0HR TROP-0 HR from 0204:[id number]. [facility] Performing Organization Address [facility] one [facility] LABORATORY SERVICES CLIA# [id number] GAB JEFFERSON [address] - [facility] [address] [place] [address] [place] CLIA# [id number] Leonides [place] [address] [facility] [address] [place] [address] * MYOGLOBIN (12/12/2011 10:20 AM [facility] [employer] [facility] [employer]) MYOGLOBIN, 26Comment: [place], [place] 16 - 97 ng/ml [facility] ACCT#[id number], ,,,, CENTER [facility] Specimen Narrative Performed At CARDIAC NYLA-0HR NYLA-0 HR from 0204:[id number]. [facility] CARDIAC TROP-0HR TROP-0 HR from 0204:[id number]. [facility] Performing Organization Address [facility] [facility] one [facility] LABORATORY SERVICES CLIA# [id number] GAB JEFFERSON 667 - [place] [address] [place] [address] [place] CLIA# [id number] Leonides JEFFERSON S [address] [facility] [address] [place] [address] * COMPREHENSIVE METABOLIC PANEL (12/12/2011 10:20 AM [employer]) GLUCOSE 231 (H) 70 - 100 mg/dl [facility] BUN 27.0 (H) 7 - 20 mg/dl [facility] CREATININE 1.03 0.8 - 1.3 mg/dl [facility] BUN/CREAT RATIO 26.2 (H) 10 - 20 [facility] GFR 78 >60 ml/min [facility] SODIUM 138 134 - 145 mmol/L [facility] POTASSIUM 4.0 3.3 - 4.8 mmol/L [facility] CHLORIDE 101 98 - 107 mmol/L [facility] CO2 27.0 22 - 31 mmol/L [facility] ANION GAP 14 4 - 20 [facility] CALCIUM 8.4 (L) 8.5 - 10.1 mg/dl [facility] ALBUMIN 3.9 3.4 - 5.0 g/dl [facility] TOTAL PROTEIN 6.9 6.4 - 8.2 g/dl [facility] GLOBULIN (CALC) 3.0 [facility] ALBUMIN/GLOBULI 1.3 [facility] RATIO [place] [facility] BILIRUBIN TOTAL 0.4 <1.1 mg/dl [facility] ALKALINE 73 50 - 136 IU/L [facility] AST 22 10 - 40 IU/L [facility] ALT 37Comment: [facility] 25 - 70 IU/L [facility] ACCT#[id number], ,,,, [place] [facility] Specimen Blood specimen (specimen) Performing Organization Address City/[facility] Ph one [facility] LABORATORY SERVICES CLIA# [id number] [place] [address] CLIA# [id number] Leonides JEFFERSON [address] * PROTIME-INR (12/12/2011 10:20 AM [employer]) PROTIME 12.1 (H) 9.8 - 11.1 Sec [facility] INR 1.18 (L)Comment: 2.0 - 3.0 [facility] ACCT#[id number], ,,,[facility] Specimen Blood specimen (specimen) Performing Organization Address City/[facility] Ph one [facility] LABORATORY SERVICES CLIA# [id number] GAB JEFFERSON 667 01 - [facility] FAYE [address] [place] [address] CLIA# [id number] Leonides JEFFERSON [address] * PTT (12/12/2011 10:20 AM [employer]) PTT 26Comment: [facility] 24 - 33 Sec M [facility] ACCT#[id number], ,,,, [place] [facility] Specimen Blood specimen (specimen) Performing Organization Address [facility] one [facility] LABORATORY SERVICES CLIA# [id number] GAB JEFFERSON - [address] [place] CLIA# [id number] Leonides JEFFERSON [address] [facility] [address] [place] [address] * MAGNESIUM LEVEL (12/12/2011 10:20 AM [employer]) Pathologist [facility] MAGNESIUM 1.6 (L)Comment: 1.8 - 2.4 mg/dl [facility] ACCT#[id number], ,,,, [facility] Specimen Blood specimen (specimen) Performing Organization Address [facility], [facility] one [facility] LABORATORY SERVICES CLIA# [id number] GAB JEFFERSON [facility] [phone] - [facility] FAYE [address] [place] [address] [place] CLIA# [id number] Leonides JEFFERSON [address] * BRAIN NATRIURETIC PEPTIDE, BNP OR PROBNP (12/12/2011 10:20 AM [employer]) BRAIN 101Comment: [facility]NN 0 - 125 pg/ml [facility] NATRIURET[facility] ACCT#[id number], ,,,, [place] PEPTIDE [facility] Specimen Blood specimen (specimen) Performing Organization Address [facility] one [facility] LABORATORY SERVICES CLIA# [id number] GAB JEFFERSON 667 - [facility] FAYE [address] [place] [address] [place] CLIA# [id number] Leonides JEFFERSON [address] * CBC WITH DIFFERENTIAL (12/12/2011 10:20 AM [employer]) Pathologist [facility] WBC 5.28 3.0 - 10.4 x10E3 [facility] RBC 4.51 4.15 - 5.75 x10E6 [facility] HEMOGLOBIN 13.1 (L) 13.8 - 17.4 g/dL [facility] PA [facility] HEMATOCRIT 38.0 (L) 38.6 - 49.4 % [facility] PA [facility] MCV 84.3 79 - 100 fL [facility] MCH 29.1 28 - 34 pg [facility] MCHC 34.5 32 - 35 g/dL [facility] RDW 14.3 (H) 12.1 - 14.1 % [facility] PA [facility] PLATELETS 301 148 - 408 x10E3 [facility] MPV 6.6 (L) 7.4 - 10.6 fL [facility] NEUTROPHILS 66.4 43 - 73 % [facility] LYMPHOCYTES 26.1 19 - 47 % [facility] MONOCYTES 5.1 3 - 9 % [facility] EOSINOPHILS 2.0 0 - 6 % [facility] BASOPHILS 0.4 0 - 1.2 % [facility] NEUTROPHIL 3.51 1.3 - 7.6 x10E3 [facility] PA [facility] LYMPHOCYTE 1.38 0.6 - 4.9 x10E3 [facility] MONOCYTE 0.27 0.1 - 0.9 x10E3 [facility] EOSINOPHIL 0.10 0.0 - 0.2 x10E3 [facility] PA [facility] BASOPHILS 0.02Comment: [facility] LYNN 0 - 0.1 x10E3 [facility] ACCT#[id number], ,,,, CENTER [facility] Specimen Blood specimen (specimen) Performing Organization Address City/State/Zipcode Ph one Number [facility] LABORATORY SERVICES CLIA# [id number] GAB JEFFERSON 667 01 - [place] [address] [place] [address] RIVERIA# [id number] Leonides JEFFERSON [address] documented in this encounter Visit Diagnoses Diagnosis COPD exacerbation Obstructive chronic bronchitis with exa cerbation Hypomagnesemia Disorders of magnesium metabolism documented in this encounter Administered Medications Action Date Dose Rate Site Medication Order MAR Action 12/12/2011 10:15 AM [employer] 324 mg aspirin (AMELIA CHEWABLE) chew tablet 324 Given mg 324 mg, Oral, ONE TIME ONLY, 1 dose, Sa t 12/12/11 at 1015, Routine 12/12/2011 10:22 AM [employer] 3 mL ipratropium-albuterol (DUONEB) 0.5 mg-3 Given mg(2.5 mg base)/3 mL inhalation solutio n 3 mL 3 mL, Inhalation, ONE TIME ONLY RESPIRATORY, 1 dose, 12/12/11 at 1015 , Routine 12/12/2011 11:37 AM [employer] 1,000 mg 100 mL/hr magnesium sulfate 1 gram/100 mL IVPB Given 1,000 mg, IV, ONE TIME ONLY, 1 dose, Sa t 12/12/11 at 1115, Routine 12/12/2011 11:23 AM [employer] 125 mg methylPREDNISolone sodium succinate Given (SOLU-MEDROL) injection 125 mg 125 mg, IV, ONE TIME ONLY, 1 dose, 12/12/11 at 1130, Routine 12/12/2011 10:16 AM [employer] mL 1000 mL/hr sodium chloride 0.9% bolus solution 500 Given mL 500 mL, IV, ONE TIME ONLY, 1 dose, 12/12/11 at 1015, at 1,000 mL/hr, Administer over 30 Minutes, Routine documented in this encounter
--- OUTSIDE RECORDS SUMMARY | 2020-03-24 14:38 | XMS REPORT | Encounter Summary ---
Author Author [facility] Organization [facility] Address Unknown Phone Unavailable Care Team Providers Care Intervention Specialist Name Role Phone Shahram Mccallum MD PCP Unavailable Reason for Visit * Reason Comments Medication Refill Encounter Details Care Team Description Date Type Department Shahram Mccallum MD NO ADDRESS ON FILE 10/20/2011 Refill [facility] Primar y Care [address] [phone] Social History Date Tobacco Use Types Packs/Day [...]
--- OUTSIDE RECORDS SUMMARY | 2020-03-24 14:38 | XMS REPORT | Encounter Summary ---
Author Author [facility] Organization [facility] Address Unknown Phone Unavailable Care Team Providers Care Employment Service Specialist Name Role Phone Shahram Mccallum MD PCP Unavailable Encounter Details Care Team Description Date Type Department Shahram Mccallum MD NO ADDRESS ON FILE [facility], Lab Schedule 08/04/2011 [facility] General Encounter Laboratory Services [address] [phone] Social History Date Tobacco Use [...] mg by 0 Oral capsule mouth daily. 08/04/2011 06/23/2012 oxaprozin (DAYPRO) 600 mg Take [...] mouth daily. 30 min. After supper 06/30/2011 09/29/2011 zolpidem (AMBIEN) 10 mg Take 1 Tab by 30 Tab 2 Oral tablet mouth nightly as needed for Insomnia. 06/30/2011 08/23/2012 FLUoxetine (PROZAC) 20 mg Take 2 Caps 60 Cap 11 Oral capsule by mouth daily. 05/05/2011 05/03/2012 metoprolol succinate ER Take 1 Tab by 30 Tab 11 24 hour (TOPROL XL) 25 mg mouth daily. Oral tablet 04/29/2011 10/20/2011 phenytoin (PHENYTEK) 200 Take 1 Cap by 60 Cap 5 mg Oral Cap mouth 2 times daily. In the morning and at bedtime. 04/07/2011 04/05/2012 pioglitazone (ACTOS) 30 Take 1 [...] 2 Oral tablet mouth 2 times daily. 07/30/2010 11/10/2011 nitroglycerin (NITROSTAT) Place 1 Tab 25 Tab 0 0.4 mg Sublingual Subl under tongue every 5 minutes as needed for Chest Pain. 03/15/2012 FLONASE 50 mcg/Actuation Administer 2 0 [...] Associated Diag nosis CBC WITH DIFFERENTIAL Routine 08/04/2011 Anemia 9:05 AM CDT HEMOGLOBIN A1C Routine 08/04/2011 DM w/o complica tion type 9:05 AM CDT I PHENYTOIN LEVEL, TOTAL Routine 08/04/2011 Other c onvulsions 9:05 AM CDT LIPID PANEL Routine 08/04/2011 Hyperlipidemia 9:05 AM CDT COMPREHENSIVE METABOLIC Routine 08/04/2011 DM w/o complication type PANEL 9:05 AM CDT I Unspecified essential hypertension Hyperlipidemia documented in this encounter Results * PHENYTOIN LEVEL, TOTAL (08/04/2011 9:05 AM CDT) PHENYTOIN TOTAL 20.2 (H)Comment: 10 - 20 ug/ml [facility] L[facility]N [facility] ACCT#[id number], ,,,, [facility] Specimen Blood specimen (specimen) Performing Organization Address City/State/Zipcode Ph one Number [facility] LABORATORY SERVICES CLIA# [id number] GAB JEFFERSON 667 01 - [place] [address] [place] [address] CLIA# [id number] [facility] Leonides MCKINNEY S [address] * LIPID PANEL (08/04/2011 9:05 AM CDT) CHOLESTEROL 223 (H) 140 - 200 mg/dl [facility] TRIGLYCERIDE 226 (H) 0 - 199 mg/dl [facility] Comment: [facility] REFERENCE RANGE - [facility] TRIGLYCERIDES NORMAL LESS THAN 150 mg/dl [facility] HIGH 150 - 199 mg/dl HIGH 200 - 499 mg/dl VERY HIGH GREATER THAN OR = 500 mg/dl HDL 52 27 - 67 mg/dl [facility] LDL 123 <130 mg/dl [facility] CHOLESTEROL, Comment: CENTER PA DIRECT [facility] RISK CATEGORY LDL GOAL High risk: <100 mg/dl CHD or CHD risk equivalents (optional goal: <70 mg/dl) (10-year risk > 20%) Moderately high risk <130 mg/dl 2+ risk factors (10-year risk 10% to 20%) Moderate risk: <130 mg/dl 2+ risk factors (10-year risk < 10%) Lower risk: <160 mg/dl 0-1 risk factor GAB JUAN ACCT#[id number], ,,,, Specimen Blood specimen (specimen) Performing Organization Address City/[facility] Ph one Number [facility] LABORATORY SERVICES CLIA# [id number] GAB JEFFERSON 667 01 - [place] [address] [place] [address] [place] CLIA# [id number] Leonides JEFFERSON S [address] [facility] [address] [place] [address] * HEMOGLOBIN A1C (08/04/2011 9:05 AM CDT) HEMOGLOBIN A1C 6.2 (H) 0 - 6.0 % [facility] PA [facility] GLUCOSE, MEAN 131Comment: [facility] mg/dl [facility] BLOOD ACCT#[id number], ,,,, CENTER [facility] Specimen Blood specimen (specimen) Performing Organization Address [facility] Ph one Number [facility] LABORATORY SERVICES CLIA# [id number] GAB JEFFERSON 667 01 - [place] [address] [place] [address] [place] CLIA# [id number] PA FAYELeonides S [address] [facility] [address] [place] [address] * COMPREHENSIVE METABOLIC PANEL (08/04/2011 9:05 AM CDT) GLUCOSE 118 (H) 70 - 100 mg/dl [facility] BUN 26.0 (H) 7 - 20 mg/dl [facility] CREATININE 1.04 0.8 - 1.3 mg/dl [facility] BUN/CREAT RATIO 25.0 (H) 10 - 20 [facility] GFR 77 >60 ml/min [facility] SODIUM 139 135 - 145 mmol/L [facility] POTASSIUM 4.3 3.3 - 4.8 mmol/L [facility] CHLORIDE 104 98 - 107 mmol/L [facility] CO2 27.7 22 - 31 mmol/L [facility] ANION GAP 12 4 - 20 [facility] CALCIUM 8.9 8.5 - 10.1 mg/dl [facility] ALBUMIN 4.1 3.4 - 5.0 g/dl [facility] TOTAL PROTEIN 6.9 6.4 - 8.2 g/dl [facility] GLOBULIN (CALC) 2.8 [facility] ALBUMIN/GLOBULI 1.5 [facility] N RATIO [facility] BILIRUBIN TOTAL 0.2 <1.1 mg/dl [facility] ALKALINE 62 50 - 136 IU/L [facility] PHOSPHATASE [facility] PA [facility] AST 40 10 - 40 IU/L [facility] ALT 59Comment: [facility] L[facility]NN 25 - 70 IU/L [facility] ACCT#[id number], ,,,, CENTER [facility] Specimen Blood specimen (specimen) Performing Organization Address City/State/Zipcode Ph one Number [facility] LABORATORY SERVICES CLIA# [id number] GAB JEFFERSON 667 01 - [place] [address] [facility] CLIA# [id number] Leonides JEFFERSON S [address] [facility] [address] [facility] * CBC WITH DIFFERENTIAL (08/04/2011 9:05 AM CDT) WBC 6.57 3.0 - 10.4 x10E3 [facility] RBC 4.47 4.15 - 5.75 x10E6 [facility] PA [facility] HEMOGLOBIN 13.0 (L) 13.8 - 17.4 g/dL [facility] PA [facility] HEMATOCRIT 39.4 38.6 - 49.4 % [facility] MCV 88.2 79 - 100 fL [facility] MCH 29.1 28 - 34 pg [facility] MCHC 33.0 32 - 35 g/dL [facility] RDW 14.1 12.1 - 14.1 % [facility] PA [facility] PLATELETS 309 148 - 408 x10E3 [facility] MPV 6.9 (L) 7.4 - 10.6 fL [facility] NEUTROPHILS 67.8 43 - 73 % [facility] PA [facility] LYMPHOCYTES 24.9 19 - 47 % [facility] PA [facility] MONOCYTES 5.4 3 - 9 % [facility] EOSINOPHILS 1.7 0 - 6 % [facility] BASOPHILS 0.3 0 - 1.2 % [facility] PA [facility] NEUTROPHIL 4.45 1.3 - 7.6 x10E3 [facility] PA MKCINNEY LAB LYMPHOCYTE 1.64 0.6 - 4.9 x10E3 [facility] PA [facility] MONOCYTE 0.35 0.1 - 0.9 x10E3 [facility] PA [facility] EOSINOPHIL 0.11 0.0 - 0.2 x10E3 [facility] PA [facility] BASOPHILS 0.02Comment: [facility]PITALElisGAB LYNN 0 - 0.1 x10E3 [facility] ACCT#[id number], ,,,, CENTER [facility] Specimen Blood specimen (specimen) Performing Organization Address City/State/Zipcode Ph one Number [facility] LABORATORY SERVICES CLIA# [id number] GAB JEFFERSON 667 01 - [place] [address] [place] [address] CLIA# [id number] Leonides JEFFERSON [address] documented in this encounter Visit Diagnoses Diagnosis Anemia Anemia, unspecified 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
--- OUTSIDE RECORDS SUMMARY | 2020-03-24 14:38 | XMS REPORT | Encounter Summary ---
Author Author [facility] Organization [facility] Address Unknown Phone Unavailable Care Team Providers Care Water Jet Loom Fixer Name Role Phone Shahram Mccallum MD PCP Unavailable Encounter Details Care Team Description Date Type Department Shahram Mccallum MD NO ADDRESS ON FILE Mhcf, Lab Schedule 11/25/2011 [facility] General Encounter Laboratory Services [address] [phone] Social History Date Tobacco Use [...] Associated Diag nosis URINALYSIS WITH REFLEX Stat 11/25/2011 Hematur ia CULTURE 9:52 AM STITCHING MACHINE FEEDER OR OFFBEARER documented in this encounter Results * URINALYSIS WITH REFLEX CULTURE (11/25/2011 9:52 AM STITCHING MACHINE FEEDER OR OFFBEARER) GLUCOSE UA 30 (H) Negative mg/dl [facility] LAB BILIRUBIN UA Negative Negative [facility] KETONES UA Negative Negative mg/dl [facility] PA [facility] LAB SPECIFIC 1.010 [facility] GRAVITY UA [facility] PH UA 7.0 [facility] PA [facility] LAB PROTEIN UA Negative Negative mg/dl [facility] UROBILINOGEN UA <2.0 0.2 - 1.0 EU/dl [facility] AP [facility] NITRITE UA Negative Negative [facility] PA [facility] LAB BLOOD UA Negative Negative [facility] LEUKOCYTE Negative Negative [facility] ESTERASE UA [facility] COLOR UA Yellow [facility] PA [facility] CLARITY UA Clear [facility] WBC UA 0-2 0 - 5 /HPF [facility] RBC UA 0-2 0 - 2 /HPF [facility] PA [facility] MUCOUS, URINE Light /LPF [facility] EPITHELIAL Rare squamous [facility] CELLS, URINE [facility] AMORPHOUS 1+Comment: [facility]ITAL[facility] LYNN Negative /HPF [facility] ACCT#[id number], ,,,, CENTER [facility] Specimen Urine, clean catch Performing Organization Address City/State/Zipcode Ph one Number [facility] LABORATORY SERVICES CLIA# [id number] GAB JEFFERSON 667 01 - [place] [address] [place] [address] CLIA# [id number] Leonides JEFFERSON [address] documented in this encounter Visit Diagnoses Diagnosis Hematuria Hematuria, unspecified documented in this encounter
--- OUTSIDE RECORDS SUMMARY | 2020-03-24 14:38 | XMS REPORT | Encounter Summary ---
Author Author [facility] Organization [facility] Address Unknown Phone Unavailable Care Team Providers Care Border Machine Operator Name Role Phone Shahram Mccallum MD PCP Unavailable Reason for Visit * Reason Comments Headache Encounter Details Care Team Description Date Type Department Shahram Mccallum MD NO ADDRESS ON FILE Headache; Needs flu shot 09/01/2011 Office Visit [facility] [address] [place] [address] Social History Date Tobacco Use [...] Signs Reading Time Taken Comments Vital Sign 134/72 09/01/2011 5:03 PM CDT Blood Pressure 66 09/01/2011 5:03 PM CDT Pulse - - Temperature - - Respiratory Rate - - Oxygen Saturation - - Inhaled Oxygen Concentration 103.4 kg (228 lb) 09/01/2011 5:03 PM CDT Weight 166.4 cm (5' 5.5") 09/01/2011 5:03 PM CDT Height 37.36 09/01/2011 5:03 PM CDT Body Mass Index documented in this encounter Progress Notes * Shahram Mccallum MD - 09/02/2011 8:36 PM CDT Subjective: Oliverio Dalton is a 60 y.o. male. Patient Active Problem List Diagnoses Code DM w/o Complication Type I 250.01 Cor Athrscl-Uns Vessel 414.00 Unspecified Essential Hypertension 401.9 Other Convulsions 780.39 Chronic Airway Obstruction, not Elsewhere Classified 496 Unspecified Retention of Urine 788.20 BPH w/o Urinary Obs/LUTS 600.00 Neurogenic Bladder, NOS 596.54 Unspecified Glaucoma 365.9 Unspecified Asthma 493.90 Other Specified Forms of Chronic Ischemic Heart Disease 414.8 Bipolar Disorder, Unspecified 296.80 Hyperlipidemia 272.4S Anemia 285.9AA Follow-Up Examination, Following Unspecified Surgery V67.00 Tubular Adenoma 229.9ED Personal History of Colonic Polyps V12.72 Cellulitis 682.9N MRSA (methicillin resistant staph aureus) culture positive V02.54P Current outpatient prescriptions ordered prior to encounter Medication Sig Dispense Refill oxaprozin (DAYPRO) 600 mg Oral tablet Take [...] min. A fter supper 30 Cap 11 zolpidem (AMBIEN) 10 mg Oral tablet Take 1 Tab by mouth nightly as needed fo r Insomnia. 30 Tab 2 FLUoxetine (PROZAC) 20 mg Oral capsule Take 2 Caps by mouth daily. 60 Cap 11 metoprolol succinate ER 24 hour (TOPROL XL) 25 mg Oral tablet Take 1 Tab by mouth daily. 30 Tab 11 phenytoin (PHENYTEK) 200 mg Oral Cap Take 1 Cap by mouth 2 times daily. In t he morning and at bedtime. 60 Cap 5 pioglitazone (ACTOS) 30 mg Oral tablet [...] 2 times daily. 60 T ab 2 nitroglycerin (NITROSTAT) 0.[address] [...] Dalton complains of the following (by systems): 2-3 days of OLIVIA R post occipital radicualr across scalp. no other acute neuro ch anges, vision chanages,NVD etc. no injury. Review of Systems: ROS Denies all of the following: Dizziness Chest pain Shortness of breath Bowel changes Bladder changes Pain in muscle or joints Exam/Objective: Normal Exam for Routine Visits: \\Blood pressure 134/72, pulse 66, height 5' 5.5" (1.664 m), weight 228 lb (103.42 kg). General appearance:chronic appearing, active, alert, cooperative, social, normal ly nourished, and in no acute distress Lungs: breath sounds equal, clear to auscultation bilaterally, no retractions, n o stridor, normal respiratory effort Heart: regular rate and rhythm, S1, S2 normal, no murmur, click, rub, gallop, or abnormal sounds. Abdomen: soft, non-tender. Bowel sounds normal. No masses, no organomegaly. Ac tive bowel sounds. Extremities: symmetrical non edematous. HEENT: tender R post occipit and neck ms. OHFFMAN, IOM-I Assessment and Plan: ASSESSMENT: Encounter Diagnoses Name Primary? Headache Needs flu shot PLAN: Orders Placed This Encounter Ketorolac 30 mg/ml injection Influenza vaccine split 3+years im (adult) Ketorolac (toradol) 30 mg/ml (1 ml) injection soln Appropriate medications prescribed (see detailed AVS). Appropriate patient instructions provided (see detailed AVS). Follow-up as I have indicated. Medications and options explained to include common side effects. Understanding of medications, course, diagnosis, and expectations were expressed by patient/g uardian. documented in this encounter Plan of Treatment Not on filedocumented as of this encounter Visit Diagnoses Diagnosis Headache(784.0) Headache Needs flu shot Need for prophylactic vaccination and i noculation against influenza documented in this encounter
--- OUTSIDE RECORDS SUMMARY | 2020-03-24 14:38 | XMS REPORT | Encounter Summary ---
Author Author [facility] Organization [facility] Address Unknown Phone Unavailable Care Team Providers Care Slabber Light Name Role Phone Shahram Mccallum MD PCP Unavailable Encounter Details Care Team Description Date Type Department Shahram Mccallum MD NO ADDRESS ON FILE [facility], Lab Schedule 12/10/2011 [facility] General Encounter Laboratory Services [address] [phone] Social History Date Tobacco Use [...] pm prn documented as of this encounter Miscellaneous Notes * Scanned Form - Aok Scanning, Him - 12/11/2011 10:55 AM GRAPHIC EDITOR Electronically signed by Interface, Bong Aok Transcriptions Incoming at 2 10:55 AM GRAPHIC EDITOR documented in this encounter Plan of Treatment Not on filedocumented as of this encounter Procedures Comments Procedure Name Priority Date/Time Associated Diag nosis CBC WITH DIFFERENTIAL Routine 12/10/2011 Anemia 9:05 AM GRAPHIC EDITOR TESTOSTERONE, TOTAL Routine 12/10/2011 BPH w/o ur inary obs/LUTS 9:05 AM GRAPHIC EDITOR Other testicular hypofunction PSA Routine 12/10/2011 BPH w/o urinary obs/LUTS 9:05 AM GRAPHIC EDITOR Other testicular hypofunction HEMOGLOBIN A1C Routine 12/10/2011 DM w/o complica tion type 9:05 AM GRAPHIC EDITOR I PHENYTOIN LEVEL, TOTAL Routine 12/10/2011 Seizure 9:05 AM GRAPHIC EDITOR LIPID PANEL Routine 12/10/2011 Hyperlipidemia 9:05 AM GRAPHIC EDITOR COMPREHENSIVE METABOLIC Routine 12/10/2011 Hyperl ipidemia PANEL 9:05 AM GRAPHIC EDITOR documented in this encounter Results * PHENYTOIN LEVEL, TOTAL (12/10/2011 9:05 AM GRAPHIC EDITOR) PHENYTOIN TOTAL 22.0 (H)Comment: 10 - 20 ug/ml [facility] ACCT#[id number], ,,,, [facility] Specimen Blood specimen (specimen) Performing Organization Address City/State/Zipcode Ph one Number [facility] LABORATORY SERVICES CLIA# [id number] [place] [address] - [place] [address] [place] [address] CLIA# [id number] [place] [address] * LIPID PANEL (12/10/2011 9:05 AM GRAPHIC EDITOR) [facility] CHOLESTEROL 217 (H) 140 - 200 mg/dl [facility] LAB TRIGLYCERIDE 348 (H) 0 - 199 mg/dl [facility] Comment: [facility] REFERENCE RANGE - [facility] TRIGLYCERIDES NORMAL LESS THAN 150 mg/dl BORDERLINE HIGH 150 - 199 mg/dl HIGH 200 - 499 mg/dl VERY HIGH GREATER THAN OR = 500 mg/dl HDL 51 27 - 67 mg/dl [facility] LAB LDL 125 <130 mg/dl [facility] CHOLESTEROL, Comment: [facility] DIRECT [place] LAB RISK CATEGORY LDL GOAL High risk: <100 mg/dl CHD or CHD risk equivalents (optional goal: <70 mg/dl) (10-year risk > 20%) Moderately high risk <130 mg/dl 2+ risk factors (10-year risk 10% to 20%) Moderate risk: <130 mg/dl 2+ risk factors (10-year risk < 10%) Lower risk: <160 mg/dl 0-1 risk factor [facility] ACCT#[id number], ,,,, Specimen Blood specimen (specimen) Performing Organization Address [facility] LABORATORY SERVICES CLIA# [id number] [place] [address] - [facility] [address] [place] [address] [place] CLIA# [id number] [place] [address] * HEMOGLOBIN A1C (12/10/2011 9:05 AM GRAPHIC EDITOR) HEMOGLOBIN A1C 6.4 (H) 0 - 6.0 % [facility] GLUCOSE, MEAN 137Comment: [facility] mg/dl [facility] BLOOD ACCT#[id number], ,,,, CENTER [facility] Specimen Blood specimen (specimen) Performing Organization Address [facility] LABORATORY SERVICES CLIA# [id number] [place] [address] - [facility] [address] [place] [address] [place] CLIA# [id number] [place] [address] [facility] [address] [place] [address] * COMPREHENSIVE METABOLIC PANEL (12/10/2011 9:05 AM GRAPHIC EDITOR) GLUCOSE 135 (H) 70 - 100 mg/dl [facility] [place] [facility] BUN 28.0 (H) 7 - 20 mg/dl [facility] [place] [facility] CREATININE 1.29 0.8 - 1.3 mg/dl [facility] [place] [facility] BUN/CREAT RATIO 21.7 (H) 10 - 20 [facility] GFR 60 >60 ml/min [facility] [place] [facility] SODIUM 135 134 - 145 mmol/L [facility] LAB POTASSIUM 4.6 3.3 - 4.8 mmol/L [facility] [place] [facility] CHLORIDE 101 98 - 107 mmol/L [facility] [place] [facility] CO2 27.7 22 - 31 mmol/L [facility] [place] [facility] ANION GAP 11 4 - 20 [facility] [place] [facility] CALCIUM 8.6 8.5 - 10.1 mg/dl [facility] LAB ALBUMIN 4.2 3.4 - 5.0 g/dl [facility] [place] TOTAL PROTEIN 7.3 6.4 - 8.2 g/dl [facility] [place] [facility] GLOBULIN (CALC) 3.1 [facility] [place] [facility] ALBUMIN/GLOBULI 1.4 [facility] [place] [facility] BILIRUBIN TOTAL 0.4 <1.1 mg/dl [facility] [place] [facility] ALKALINE 71 50 - 136 IU/L [facility] AST 19 10 - 40 IU/L [facility] ALT 41Comment: [facility] 25 - 70 IU/L [facility] ACCT#[id number], ,,,, CENTER [place] [facility] Specimen Blood specimen (specimen) Performing Organization Address City/State/Zipcode Ph one Number [facility] LABORATORY SERVICES CLIA# [id number] [place] [address] - [place] [address] [place] [address] CLIA# [id number] [place] [address] * CBC WITH DIFFERENTIAL (12/10/2011 9:05 AM GRAPHIC EDITOR) WBC 7.03 3.0 - 10.4 x10E3 [facility] RBC 4.64 4.15 - 5.75 x10E6 [facility] [place] [facility] HEMOGLOBIN 13.5 (L) 13.8 - 17.4 g/dL [facility] [place] [facility] HEMATOCRIT 39.7 38.6 - 49.4 % [facility] [facility] MCV 85.4 79 - 100 fL [facility] MCH 29.0 28 - 34 pg [facility] MCHC 34.0 32 - 35 g/dL [facility] RDW 14.3 (H) 12.1 - 14.1 % [facility] [place] [facility] PLATELETS 332 148 - 408 x10E3 [facility] [place] [facility] MPV 7.0 (L) 7.4 - 10.6 fL [facility] [place] [facility] NEUTROPHILS 66.9 43 - 73 % [facility] [place] [facility] LYMPHOCYTES 26.2 19 - 47 % [facility] [place] [facility] MONOCYTES 5.1 3 - 9 % [facility] [place] [facility] EOSINOPHILS 1.4 0 - 6 % [facility] [place] [facility] BASOPHILS 0.3 0 - 1.2 % [facility] [place] [facility] NEUTROPHIL 4.70 1.3 - 7.6 x10E3 [facility] [place] [facility] LYMPHOCYTE 1.84 0.6 - 4.9 x10E3 [facility] [place] [facility] MONOCYTE 0.36 0.1 - 0.9 x10E3 [facility] [place] [facility] EOSINOPHIL 0.10 0.0 - 0.2 x10E3 [facility] [place] [facility] BASOPHILS 0.02Comment: [facility] 0 - 0.1 x10E3 [facility] ACCT#[id number], ,,,, CENTER [facility] Specimen Blood specimen (specimen) Performing Organization Address City/[facility] one [facility]ly [facility] LABORATORY SERVICES CLIA# [id number] [place], [place] [address] - [address] CLIA# [id number] [place] [address] * TESTOSTERONE (12/10/2011 9:05 AM GRAPHIC EDITOR) TESTOSTERONE 619 () ng/dL [facility] Comment: [facility] Reference Range [facility] Adult 241-827 Aging men with clinically significant hypogonadal symptoms and testosterone values repeatedly in the range of 200-300 ng/dL or less, may benefit from testosterone treatment after adequate risk and benefits counseling. Test performed at [facility] [address] [address] [place] [address] Director: CHICHI CARTWRIGHT DO,MPH [facility], ,,,, Specimen Blood specimen (specimen) Performing Organization Address City/[facility] Ph one Number [facility] LABORATORY SERVICES CLIA# [id number] [facility] [place] [address] [address] [id number] [place] [address] * PSA (12/10/2011 9:05 AM GRAPHIC EDITOR) PSA 0.5 < OR = 4.0 ng/mL [facility] Comment: [facility] This test was performed using [facility] DSOUZA the Siemens chemiluminescent method. Values obtained from different assay methods cannot be used interchangeably. PSA levels, regardless of value, should not be interpreted as absolute evidence of the presence or absence of disease. Test performed at [facility] [address] [place] [address] Director: CHICHI CARTWRIGHT DO,MPH [facility], ,,,, Specimen Blood specimen (specimen) Performing Organization Address City/State/Zipcode Ph one Number [facility] LABORATORY SERVICES CLIA# [id number] [place] [address] - [address] [id number] [place] [address] documented in this encounter Visit Diagnoses Diagnosis Hypertrophy of prostate without urinary obstruction and other lower urinary tract symptoms (LUTS) Other testicular hypofunction Anemia Anemia, unspecified Hyperlipidemia Other and unspecified hyperlipidemia 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
--- OUTSIDE RECORDS SUMMARY | 2020-03-24 14:38 | XMS REPORT | Encounter Summary ---
Author Author [facility] Organization [facility] Address Unknown Phone Unavailable Care Team Providers Care Tube Building Machine Operator Name Role Phone Shahram Mccallum MD PCP Unavailable Reason for Visit * Reason Comments Diabetes Hypertension Cholesterol Problem Encounter Details Care Team Description Date Type Department Shahram Mccallum MD NO ADDRESS ON FILE DM w/o complication type I; Cor athrscl-uns vessel; Unspecified essential hypertension; Hyperlipidemia; Anemia; Seizure 08/03/2011 [facility] [address] [place] [phone] Social History Date Tobacco Use Types Packs/Day [...] Reading Time Taken Comments Vital Sign 112/60 08/03/2011 9:56 AM CDT Blood Pressure 88 08/03/2011 9:56 AM CDT Pulse - - Temperature - - Respiratory Rate - - Oxygen Saturation - - Inhaled Oxygen Concentration 101.2 kg (223 lb) 08/03/2011 9:56 AM CDT Weight 166.4 cm (5' 5.5") 08/03/2011 9:56 AM CDT Height 36.54 08/03/2011 9:56 AM CDT Body Mass Index documented in this encounter Progress Notes * Shahram Mccallum MD - 08/03/2011 8:03 PM CDT Subjective: Oliverio Dalton is a [...] prior to encounter Medication Sig Dispense Refill bethanechol (URECHOLINE) 25 [...] Tab by mouth daily. 30 Tab 11 magnesium oxide 250 mg Oral Tab Take 1 Tab by mouth 3 times daily. simvastatin (ZOCOR) 80 mg Oral Tab Take 1 Tab by mouth daily at bedtime. 30 Tab 5 FLONASE 50 mcg/Actuation Both Nostril SpSn Administer 2 Sprays in each nostr il daily. ASPIRIN EC 81 mg Oral TbEC Take 81 mg by mouth daily. flaxseed Oil 1,000 mg Oral Cap Take 1000 mg by mouth 3 times daily. TRICOR 145 mg Oral Tab Take 145 mg by mouth daily with supper. ZETIA 10 mg Oral Tab Take 10 [...] 4 hours as needed for P ain. Component Value Date CHOLESTEROL 227* 04/02/2011 CHOLESTEROL 215* 11/24/2010 CHOLESTEROL 225* 05/08/2010 HDL 47 04/02/2011 HDL 46 11/24/2010 HDL 48 05/08/2010 LDL CALCULATED 0 06/29/2008 LDL CALCULATED 0 04/26/2006 LDL CHOLESTEROL, DIRECT 125 04/02/2011 LDL CHOLESTEROL, DIRECT 124 11/24/2010 LDL CHOLESTEROL, DIRECT 130 05/08/2010 TRIGLYCERIDE 348* 04/02/2011 TRIGLYCERIDE 280* 11/24/2010 TRIGLYCERIDE 363* 05/08/2010 ALT 31 04/02/2011 AST 20 04/02/2011 Component Value Date CREATININE 0.90 04/02/2011 BUN 23.0* 04/02/2011 SODIUM 134* 04/02/2011 POTASSIUM 4.3 04/02/2011 CHLORIDE 99 04/02/2011 CO2 26.3 04/02/2011 GFR 91 04/02/2011 Component Value Date ALT 31 04/02/2011 AST 20 04/02/2011 ALKALINE PHOSPHATASE 66 04/02/2011 BILIRUBIN TOTAL 0.3 04/02/2011 Component Value Date TSH 1.69 10/01/2006 HPI: Mr. Dalton complains of the following (by systems): Anxiety symptoms: racing thoughts and anxious but stable Arthritis symptoms: diffuse arthralgias and more active than usual x several mon ths. drives short distances. Chest Pain symptoms: chest wall pain Diabetes Type II complaints: medication compliance: compliant all of the time, diabetic diet compliance: noncompliant some of the time, home glucose monitorin g: is performed regularly Hypertension related symtoms/issues: taking medications as instructed, no side effects of medications, no chest pain on exertion, no dyspnea on exertion, no ed lian No complications related to lipids or lipid therapy. Review of Systems: MARA Has many of the following: Headache Dizziness Chest pain Shortness of breath Bowel changes Bladder changes Pain in muscle or joints Exam/Objective: Normal Exam for Routine Visits: \\Blood pressure 112/60, pulse 88, height 5' 5.5" (1.664 m), weight 223 lb (101.152 kg). General appearance:chronic ill but more healthy appearing, active, alert, marnie ative, social, normally nourished, and in no acute distress Lungs: breath sounds equal, clear to auscultation bilaterally, no retractions, n o stridor, normal respiratory effort Heart: regular rate and rhythm, S1, S2 normal, no murmur, click, rub, gallop, or abnormal sounds. Abdomen: soft, non-tender. Bowel sounds normal. No masses, no organomegaly. Ac tive bowel sounds. Extremities: symmetrical trace edematous. Assessment and Plan: ASSESSMENT: Encounter Diagnoses Name Primary? DM w/o complication type I Cor athrscl-uns vessel Unspecified essential hypertension Hyperlipidemia Anemia Seizure PLAN: Orders Placed This Encounter Cmp (4 months x 1) Lipid panel (4 months x 1) Hemogolbin a1c (4 months x1) Cbc with differential (4 months x 1) Phenytoin total Appropriate medications prescribed (see detailed AVS). Appropriate patient instructions provided (see detailed AVS). Follow-up as I have indicated. Medications and options explained to include common side effects. Understanding of medications, course, diagnosis, and expectations were expressed by patient/g uardian. documented in this encounter Plan of Treatment Not on filedocumented as of this encounter Results * PHENYTOIN LEVEL, TOTAL (12/10/2011 9:05 AM HEATING PLANT SUPERINTENDENT) PHENYTOIN TOTAL 22.0 (H)Comment: 10 - 20 ug/ml [facility] ACCT#[id number], ,,,, [facility] Specimen Blood specimen (specimen) Performing Organization Address City/State/Zipcode Ph one Number [facility] LABORATORY SERVICES CLIA# [id number] [place] [address] - [place] [address] [place] [address] CLIA# [id number] Leon[place] S [address] [facility] [address] [place] [address] * CBC WITH DIFFERENTIAL (12/10/2011 9:05 AM HEATING PLANT SUPERINTENDENT) Pathologist [facility] WBC 7.03 3.0 - 10.4 x10E3 [facility] RBC 4.64 4.15 - 5.75 x10E6 [facility] LAB HEMOGLOBIN 13.5 (L) 13.8 - 17.4 g/dL [facility] HEMATOCRIT 39.7 38.6 - 49.4 % [facility] MCV 85.4 79 - 100 fL [facility] MCH 29.0 28 - 34 pg [facility] MCHC 34.0 32 - 35 g/dL [facility] [place] [facility] RDW 14.3 (H) 12.1 - 14.1 % [facility] PLATELETS 332 148 - 408 x10E3 [facility] MPV 7.0 (L) 7.4 - 10.6 fL [facility] NEUTROPHILS 66.9 43 - 73 % [facility] LYMPHOCYTES 26.2 19 - 47 % [facility] MONOCYTES 5.1 3 - 9 % [facility] EOSINOPHILS 1.4 0 - 6 % [facility] [place] [facility] BASOPHILS 0.3 0 - 1.2 % [facility] [place] [facility] NEUTROPHIL 4.70 1.3 - 7.6 x10E3 [facility] [place] [facility] LYMPHOCYTE 1.84 0.6 - 4.9 x10E3 [facility] [place] [facility] MONOCYTE 0.36 0.1 - 0.9 x10E3 [facility] [place] [facility] EOSINOPHIL 0.10 0.0 - 0.2 x10E3 [facility] [place] LAB BASOPHILS 0.02Comment: [facility] 0 - 0.[address] [facility] ABSOLUTE ACCT#[id number], ,,,, CENTER [place] [facility] Specimen Blood specimen (specimen) Performing Organization Address City/[facility] Ph one [facility] hospital LABORATORY SERVICES CLIA# [id number] GAB [place] [address] - [facility] FAY[facility] [address] [place] [address] CLIA# [id number] Leon[place] [address] [facility] [address] [place] [address] * HEMOGLOBIN A1C (12/10/2011 9:05 AM HEATING PLANT SUPERINTENDENT) HEMOGLOBIN A1C 6.4 (H) 0 - 6.0 % [facility] [place] [facility] GLUCOSE, MEAN 137Comment: [facility] mg/dl [facility] BLOOD ACCT#[id number], ,,,, CENTER [place] [facility] Specimen Blood specimen (specimen) Performing Organization Address City/[facility] Ph one Critical access hospital LABORATORY SERVICES CLIA# [id number] [place] [address] - [address] [place] CLIA# [id number] [place] S [address] [facility] [address] [place] [address] * LIPID PANEL (12/10/2011 9:05 AM HEATING PLANT SUPERINTENDENT) CHOLESTEROL 217 (H) 140 - 200 mg/dl [facility] TRIGLYCERIDE 348 (H) 0 - 199 mg/dl [facility] Comment: [facility] [place] [facility] TRIGLYCERIDES NORMAL LESS THAN 150 mg/dl BORDERLINE HIGH 150 - 199 mg/dl HIGH 200 - 499 mg/dl VERY HIGH GREATER THAN OR = 500 mg/dl HDL 51 27 - 67 mg/dl [facility] [place] [facility] LDL 125 <130 mg/dl [facility] CHOLESTEROL, Comment: CENTER [facility] [facility] RISK CATEGORY LDL GOAL High risk: <100 mg/dl CHD or CHD risk equivalents (optional goal: <70 mg/dl) (10-year risk > 20%) Moderately high risk <130 mg/dl 2+ risk factors (10-year risk 10% to 20%) Moderate risk: <130 mg/dl 2+ risk factors (10-year risk < 10%) Lower risk: <160 mg/dl 0-1 risk factor GAB [facility]UAN ACCT#[id number], ,,,, Specimen Blood specimen (specimen) Performing Organization Address City/[facility] Ph one Number [facility] LABORATORY SERVICES CLIA# [id number] [place] [address] - [place] [address] [facility] [place] CLIA# [id number] [place] S [address] [facility] [address] [facility] * COMPREHENSIVE METABOLIC PANEL (12/10/2011 9:05 AM HEATING PLANT SUPERINTENDENT) GLUCOSE 135 (H) 70 - 100 mg/dl [facility] BUN 28.0 (H) 7 - 20 mg/dl [facility] CREATININE 1.29 0.8 - 1.3 mg/dl [facility] BUN/CREAT RATIO 21.7 (H) 10 - 20 [facility] GFR 60 >60 ml/min [facility] SODIUM 135 134 - 145 mmol/L [facility] POTASSIUM 4.6 3.3 - 4.8 mmol/L [facility] CHLORIDE 101 98 - 107 mmol/L [facility] CO2 27.7 22 - 31 mmol/L [facility] ANION GAP 11 4 - 20 [facility] CALCIUM 8.6 8.5 - 10.1 mg/dl [facility] ALBUMIN 4.2 3.4 - 5.0 g/dl [facility] TOTAL PROTEIN 7.3 6.4 - 8.2 g/dl [facility] GLOBULIN (CALC) 3.1 [facility] ALBUMIN/GLOBULI 1.4 [place] [facility] BILIRUBIN TOTAL 0.4 <1.1 mg/dl [facility] ALKALINE 71 50 - 136 IU/L [facility] PHOSPHATASE [facility] LAB AST 19 10 - 40 IU/L [facility] ALT 41Comment: [facility] 25 - 70 IU/L [facility] ACCT#[id number], ,,,, CENTER [place] [facility] Specimen Blood specimen (specimen) Performing Organization Address City/[facility] Ph one Number [facility] LABORATORY SERVICES CLIA# [id number] [place] [address] - [place] [address] [facility] MICHELLE# [id number] Leon[place] JE[place] [address] [facility] 401 [facility] documented in this encounter Visit Diagnoses Diagnosis Type I (juvenile type) diabetes mellitu s without mention of complication, not stated as uncontrolled Coronary atherosclerosis of unspecified type of vessel, [place] or graft Unspecified essential hypertension Hyperlipidemia Other and unspecified hyperlipidemia Anemia Anemia, unspecified Seizure Other convulsions documented in this encounter
--- OUTSIDE RECORDS SUMMARY | 2020-03-24 14:39 | XMS REPORT | Encounter Summary ---
Author Author [facility] Organization [facility] Address Unknown Phone Unavailable Care Team Providers Care Body Cleaner Name Role Phone Shahram Mccallum MD PCP Unavailable Reason for Visit * Reason Comments Medication Refill Encounter Details Care Team Description Date Type Department Shahram Mccallum MD NO ADDRESS ON FILE 12/30/2010 Refill [facility] Primar y Care [address] [phone] Social History Date Tobacco Use Types Packs/Day Years Used Quit: 03/08/1995 Former Smoker Cigarettes 4 40 Drinks/Week oz/Week Comments Alcohol Use No Sex [...]
--- OUTSIDE RECORDS SUMMARY | 2020-03-24 14:39 | XMS REPORT | Encounter Summary ---
Author Author [facility] Organization [facility] Address Unknown Phone Unavailable Care Team Providers Care Rn Enterostomal Name Role Phone Shahram Mccallum MD PCP Unavailable Reason for Visit * Reason Comments Medication Refill Encounter Details Care Team Description Date Type Department Shahram Mccallum MD NO ADDRESS ON FILE 04/29/2011 Refill [facility] Primar y Care [address] [phone] Social History Date Tobacco Use Types Packs/Day [...]
--- OUTSIDE RECORDS SUMMARY | 2020-03-24 14:39 | XMS REPORT | Encounter Summary ---
Author Author [facility] Organization [facility] Address Unknown Phone Unavailable Care Team Providers Care Coordinator Of Evaluation Name Role Phone Shahram Mccallum MD PCP Unavailable Encounter Details Care Team Description Date Type Department Walter Oconnor MD [address] [place] [address] 320/[phone] DONNA Chao [phone] 02/05/2011 Abstract [facility] [address] [place] [phone] Social History Date Tobacco Use Types Packs/Day [...] Procedure Name Priority Date/Time Associated Diag nosis CL LT HEART Routine 02/05/2011 CATHETERIZATION documented in this encounter Results * CL LT HEART CATHETERIZATION (02/05/2011) Narrative Performed At This result has an attachment that is n ot available. Performing Organization Address City/State/Zipcode Ph one Number EXTERNAL RADIOLOGY documented in this encounter Visit Diagnoses Not on filedocumented in this encounter
--- OUTSIDE RECORDS SUMMARY | 2020-03-24 14:39 | XMS REPORT | Encounter Summary ---
Author Author [facility] Organization [facility] Address Unknown Phone Unavailable Care Team Providers Care Design Engineering Intern Name Role Phone Shahram Mccallum MD PCP Unavailable Reason for Visit * Reason Comments Medication Refill Encounter Details Care Team Description Date Type Department Shahram Mccallum MD NO ADDRESS ON FILE 03/10/2011 Refill [facility] Primar y Care [address] [phone] Social History Date Tobacco Use Types Packs/Day [...]
--- OUTSIDE RECORDS SUMMARY | 2020-03-24 14:39 | XMS REPORT | Encounter Summary ---
Author Author [facility] Organization [facility] Address Unknown Phone Unavailable Care Team Providers Care Optics Manufacturing Technician Name Role Phone Shahram Mccallum MD PCP Unavailable Encounter Details Care Team Description Date Type Department Walter Oconnor MD [address] [place] [address] 320/330 DONNA Chao [phone] 02/06/2011 Abstract [facility] [address] [place] [phone] Social History Date Tobacco Use Types Packs/Day [...] Date/Time Associated Diag nosis EKG 12-LEAD Routine 02/06/2011 documented in this encounter Results * EKG 12-LEAD (02/06/2011) Narrative Performed At This result has an attachment that is n ot available. Performing Organization Address City/State/Zipcode Ph one Number EXTERNAL RADIOLOGY documented in this encounter Visit Diagnoses Not on filedocumented in this encounter
--- OUTSIDE RECORDS SUMMARY | 2020-03-24 14:39 | XMS REPORT | Encounter Summary ---
Author Author [facility] Organization [facility] Address Unknown Phone Unavailable Care Team Providers Care Mobile Marketing Specialist Name Role Phone Shahram Mccallum MD PCP Unavailable Reason for Visit * Reason Comments Medication Refill Encounter Details Care Team Description Date Type Department Nuris Miramontes 06/15/2011 Refill [facility] Primar y Care [place] [address] [place] [address] Social History Date Tobacco Use [...] * Telephone Encounter - Nuris Miramontes - 06/15/2011 3:31 PM CDT Refill allbuterol inhaler prn at [facility] and new order for flovent 110 mcg one puf f bid called to [facility] pharmacy. documented in this encounter Plan of Treatment Not on filedocumented as of this encounter Visit Diagnoses Not on filedocumented in this encounter
--- OUTSIDE RECORDS SUMMARY | 2020-03-24 14:39 | XMS REPORT | Encounter Summary ---
Author Author [facility] Organization [facility] Address Unknown Phone Unavailable Care Team Providers Care Fuel Cell Engineer Name Role Phone Shahram Mccallum MD PCP Unavailable Reason for Visit * Reason Comments Medication Refill Encounter Details Care Team Description Date Type Department Self, Aries Montelongo MD [address] [place] [address] 12/03/2010 Refill [facility] Primar y Care [place] [address] [place] [address] Social History Date Tobacco Use [...]
--- OUTSIDE RECORDS SUMMARY | 2020-03-24 14:39 | XMS REPORT | Encounter Summary ---
Author Author [facility] Organization [facility] Address Unknown Phone Unavailable Care Team Providers Care Harness Repairer Name Role Phone Shahram Mccallum MD PCP Unavailable Reason for Visit * Reason Comments Medication Refill Encounter Details Care Team Description Date Type Department Shahram Mccallum MD NO ADDRESS ON FILE 03/31/2011 Refill [facility] Primar y Care [address] [phone] Social History Date Tobacco Use Types Packs/Day [...]
--- OUTSIDE RECORDS SUMMARY | 2020-03-24 14:39 | XMS REPORT | Encounter Summary ---
Author Author [facility] Organization [facility] Address Unknown Phone Unavailable Care Team Providers Care Materials Handler Name Role Phone Shahram Mccallum MD PCP Unavailable Reason for Visit * Reason Comments Erectile Dysfunction Encounter Details Care Team Description Date Type Department Jamey Pena MD [address] [place] [address] Erectile Dysfunction 11/25/2010 Telephone [facility] Urolog y Medical [place] [phone] Social History Date Tobacco Use Types [...] encounter Miscellaneous Notes * Telephone Encounter - Nhung Ruggiero - 11/25/2010 10:46 AM ELECTRONIC COILS SUPERVISOR Patient requesting urology appt re: EDKarlos Bustos w/ Dr Pena, , 12/04/10 @ 0 850am @ [facility]. Patient verbalized understanding./sscottrn TRONIC COILS SUPERVISOR documented in this encounter Plan of Treatment Not on filedocumented as of this encounter Visit Diagnoses Not on filedocumented in this encounter
--- OUTSIDE RECORDS SUMMARY | 2020-03-24 14:39 | XMS REPORT | Encounter Summary ---
Author Author [facility] Organization [facility] Address Unknown Phone Unavailable Care Team Providers Care Territory Sales Consultant Name Role Phone Shahram Mccallum MD PCP Unavailable Reason for Visit * Reason Comments Diabetes lab results Cholesterol Problem Encounter Details Care Team Description Date Type Department Shahram Mccallum MD NO ADDRESS ON FILE DM w/o complication type I; Other convulsions; Unspecified essential hypertension; Hyperlipidemia; Anemia 04/03/2011 Office Visit [facility] [address] [place] [address] Social History Date Tobacco Use [...] Signs Reading Time Taken Comments Vital Sign 108/56 04/03/2011 10:42 AM CDT Blood Pressure 72 04/03/2011 10:42 AM CDT Pulse - - Temperature - - Respiratory Rate - - Oxygen Saturation - - Inhaled Oxygen Concentration 101.2 kg (223 lb) 04/03/2011 10:42 AM CDT Weight 165.1 cm (5' 5") 04/03/2011 10:42 AM CDT Height 37.11 04/03/2011 10:42 AM CDT Body Mass Index documented in this encounter Progress Notes * Shahram Mccallum MD - 04/06/2011 8:49 PM CDT Subjective: Oliverio Dalton is a [...] prior to encounter Medication Sig Dispense Refill zolpidem (AMBIEN) 10 mg Oral tablet Take 1 Tab by mouth nightly as needed fo r Insomnia. 30 Tab 2 clopidogrel (PLAVIX) 75 mg Oral Tab [...] daily before break fast. 30 Cap 11 phenytoin (PHENYTEK) 200 mg Oral Cap Take 1 Cap by mouth 2 times daily. In t he morning and at bedtime. 60 Cap 5 rifampin (RIFADINE) 300 mg Oral capsule Take 1 Cap by mouth every 12 hours. 20 Cap 0 nitroglycerin (NITROSTAT) 0.[address] 1 Tab under tongue ev len 5 minutes as needed for Chest Pain. 25 Tab prn oxaprozin (DAYPRO) 600 mg Oral tablet Take 1 Tab by mouth daily. 30 Tab 11 bethanechol (URECHOLINE) 25 mg Oral tablet Take 1 Tab by mouth 4 times daily . 120 Tab 11 tamsulosin (FLOMAX) 0.4 mg Oral capsule Take 1 Cap by mouth daily. 30 min. A fter supper 30 Cap 11 metoprolol succinate ER 24 hour (TOPROL XL) 25 mg Oral tablet Take 1 Tab by mouth daily. 30 Tab 11 FLUoxetine (PROZAC) 20 mg Oral capsule Take 2 Caps by mouth daily. 60 Cap 11 pioglitazone (ACTOS) 30 mg Oral tablet Take 1 Tab by mouth daily. 30 Tab 1 1 simvastatin (ZOCOR) 80 mg Oral Tab Take [...] 4 hours as needed for P ain. LORazepam (ATIVAN) 1 mg Oral tablet Take 1 Tab by mouth 2 times daily. 60 T ab 2 magnesium oxide 250 mg Oral Tab Take 1 Tab by mouth 3 times daily. Component Value Date HEMOGLOBIN A1C 6.5* 04/02/2011 HEMOGLOBIN A1C 6.8* 11/24/2010 HEMOGLOBIN A1C 6.7* 05/08/2010 MICROALBUMIN, URINE 17.7 11/24/2010 LDL CALCULATED 0 06/29/2008 LDL CHOLESTEROL, DIRECT 125 04/02/2011 CREATININE 0.90 04/02/2011 Component Value Date CHOLESTEROL 227* 04/02/2011 CHOLESTEROL [...] 04/02/2011 GFR 91 04/02/2011 Component Value Date WBC 5.98 11/24/2010 HEMOGLOBIN 14.0 11/24/2010 HEMATOCRIT 40.5 11/24/2010 PLATELETS 284 11/24/2010 MCV 85.3 11/24/2010 Component Value Date ALT 31 04/02/2011 AST 20 04/02/2011 ALKALINE PHOSPHATASE 66 04/02/2011 BILIRUBIN TOTAL 0.3 04/02/2011 HPI: Mr. Dalton complains of the following (by systems): Chest Pain symptoms: had recent repaet cardiac eval with stenting Depression like symptoms: depressed mood, difficulty concentrating, fatigue, imp aired memory, psychomotor agitation and stable and doing better recently Diabetes Type II complaints: medication compliance: compliant most of the time , diabetic diet compliance: noncompliant some of the time, home glucose monitori ng: is performed sporadically Hypertension related symtoms/issues: taking medications as instructed, no side effects of medications, no chest pain on exertion, no dyspnea on exertion, no ed lian no recent seizures. is adamant about cont tegretol. Review of Systems: ROS Denies all of the following: Headache Dizziness Chest pain Shortness of breath: chronic Bowel changes Bladder changes Pain in muscle or joints Exam/Objective: Normal Exam for Routine Visits: \\Blood pressure 108/56, pulse 72, height 5' 5" ( 1.651 m), weight 223 lb (101.152 kg). General appearance: chronic ill appearing, active, [...] Name Primary? DM w/o complication type I Other convulsions Unspecified essential hypertension Hyperlipidemia Anemia PLAN: Orders Placed This Encounter Lipid panel Hemoglobin a1c Cmp Cbc with differential Phenytoin total Also, he has additional complaints of penile implant surg. Appropriate medications prescribed (see detailed AVS). Appropriate patient instructions provided (see detailed AVS). Follow-up as I have indicated. Medications and options explained to include common side effects. Understanding of medications, course, diagnosis, and expectations were expressed by patient/g uardian. documented in this encounter Plan of Treatment Not on filedocumented as of this encounter Results * PHENYTOIN LEVEL, TOTAL (08/04/2011 9:05 AM CDT) Pathologist [facility] PHENYTOIN TOTAL 20.2 (H)Comment: 10 - 20 ug/ml [facility] ACCT#[id number], ,,,, [facility] Specimen Blood specimen (specimen) Performing Organization Address City/State/Zipcode Ph one Number [facility] CLIA# [id number] [place] [address] - [place] [address]# [id number] [facility] [place] [address] * CBC WITH DIFFERENTIAL (08/04/2011 9:05 AM CDT) Pathologist [facility] WBC 6.57 3.0 - 10.4 x10E3 [facility] [facility] RBC 4.47 4.15 - 5.75 x10E6 [facility] HEMOGLOBIN 13.0 (L) 13.8 - 17.4 g/dL [facility] HEMATOCRIT 39.4 38.6 - 49.4 % [facility] [facility] MCV 88.2 79 - 100 fL [facility] [place] [facility] MCH 29.1 28 - 34 pg [facility] MCHC 33.0 32 - 35 g/dL [facility] RDW 14.1 12.1 - 14.1 % [facility] [facility] PLATELETS 309 148 - 408 x10E3 [facility] [place] [facility] MPV 6.9 (L) 7.4 - 10.6 fL [facility] [place] [facility] NEUTROPHILS 67.8 43 - 73 % [facility] [place] [facility] LYMPHOCYTES 24.9 19 - 47 % [facility] MONOCYTES 5.4 3 - 9 % [facility] EOSINOPHILS 1.7 0 - 6 % [facility] [place] [facility] BASOPHILS 0.3 0 - 1.2 % [facility] NEUTROPHIL 4.45 1.3 - 7.6 x10E3 [facility] [place] LYMPHOCYTE 1.64 0.6 - 4.9 x10E3 [facility] MONOCYTE 0.35 0.1 - 0.9 x10E3 [facility] EOSINOPHIL 0.11 0.0 - 0.2 x10E3 [facility] BASOPHILS 0.02Comment: [facility] 0 - 0.1 x10E3 [facility] ACCT#[id number], ,,,, CENTER [place] [facility] Specimen Blood specimen (specimen) Performing Organization Address City/State/Zipcode Ph one Number [facility] CLIA# [id number] [place] [address] - [place] [address] [place] [address] CLIA# [id number] [place] [address] [address] * COMPREHENSIVE METABOLIC PANEL (08/04/2011 9:05 AM CDT) GLUCOSE 118 (H) 70 - 100 mg/dl [facility] BUN 26.0 (H) 7 - 20 mg/dl [facility] CREATININE 1.04 0.8 - 1.3 mg/dl [facility] BUN/CREAT RATIO 25.0 (H) 10 - 20 [facility] GFR 77 >60 ml/min [facility] SODIUM 139 135 - 145 mmol/L [facility] POTASSIUM 4.3 3.3 - 4.8 mmol/L [facility] CHLORIDE 104 98 - 107 mmol/L [facility] CO2 27.7 22 - 31 mmol/L [facility] ANION GAP 12 4 - 20 [facility] CALCIUM 8.9 8.5 - 10.1 mg/dl [facility] ALBUMIN 4.1 3.4 - 5.0 g/dl [facility] TOTAL PROTEIN 6.9 6.4 - 8.2 g/dl [facility] LAB GLOBULIN (CALC) 2.8 [facility] ALBUMIN/GLOBULI 1.5 [facility] N [facility] [place] [facility] BILIRUBIN TOTAL 0.2 <1.1 mg/dl [facility] ALKALINE 62 50 - 136 IU/L [facility] PHOSPHATASE [facility] AST 40 10 - 40 IU/L [facility] ALT 59Comment: [facility] 25 - 70 IU/L [facility] ACCT#[id number], ,,,, CENTER [facility] Specimen Blood specimen (specimen) Performing Organization Address [facility] Ph one Count includes the [facility] LABORATORY SERVICES CLIA# [id number] [place] [address] - [facility] [address] [place] [address] [place] CLIA# [id number] [place] [address] [facility] [address] [place] [address] * HEMOGLOBIN A1C (08/04/2011 9:05 AM CDT) HEMOGLOBIN A1C 6.2 (H) 0 - 6.0 % [facility] GLUCOSE, MEAN 131Comment: [facility] mg/dl [facility] BLOOD ACCT#[id number], ,,,, CENTER [facility] Specimen Blood specimen (specimen) Performing Organization Address City/[facility] Ph one Number [facility] CLIA# [id number] [place] [address] - [facility] [address] [place] [address] [place] CLIA# [id number] [place] [address] [facility] [address] [place] [address] * LIPID PANEL (08/04/2011 9:05 AM CDT) CHOLESTEROL 223 (H) 140 - 200 mg/dl [facility] TRIGLYCERIDE 226 (H) 0 - 199 mg/dl [facility] Comment: [facility] REFERENCE RANGE - [facility] TRIGLYCERIDES NORMAL LESS THAN 150 mg/dl BORDERLINE HIGH 150 - 199 mg/dl HIGH 200 - 499 mg/dl VERY HIGH GREATER THAN OR = 500 mg/dl HDL 52 27 - 67 mg/dl [facility] LDL 123 <130 mg/dl [facility] CHOLESTEROL, Comment: [facility] DIRECT [facility] RISK CATEGORY LDL GOAL High risk: <100 mg/dl CHD or CHD risk equivalents (optional goal: <70 mg/dl) (10-year risk > 20%) Moderately high risk <130 mg/dl 2+ risk factors (10-year risk 10% to 20%) Moderate risk: <130 mg/dl 2+ risk factors (10-year risk < 10%) Lower risk: <160 mg/dl 0-1 risk factor [facility] ACCT#[id number], ,,,, Specimen Blood specimen (specimen) Performing Organization Address City/State/Zipcode Ph one Number [facility] CLIA# [id number] [place] [address] - [place] [address] [place] [address] CLIA# [id number] [place] [id number] documented in this encounter Visit Diagnoses Diagnosis Type I (juvenile type) diabetes mellitu s without mention of complication, not stated as uncontrolled Other convulsions Unspecified essential hypertension Hyperlipidemia Other and unspecified hyperlipidemia Anemia Anemia, unspecified documented in this encounter
--- OUTSIDE RECORDS SUMMARY | 2020-03-24 14:39 | XMS REPORT | Encounter Summary ---
Author Author [facility] Organization [facility] Address Unknown Phone Unavailable Care Team Providers Care Steam Clothes Press Operator Name Role Phone Shahram Mccallum MD PCP Unavailable Encounter Details Care Team Description Date Type Department Shahram Mccallum MD NO ADDRESS ON FILE 02/17/2011 Abstract [facility] Primar y Care [place] [address] [place] [phone] Social History Date Tobacco Use Types Packs/Day [...]
--- OUTSIDE RECORDS SUMMARY | 2020-03-24 14:39 | XMS REPORT | Encounter Summary ---
Author Author [facility] Organization [facility] Address Unknown Phone Unavailable Care Team Providers Care Report Manager Name Role Phone Shahram Mccallum MD PCP Unavailable Encounter Details Care Team Description Date Type Department Shahram Mccallum MD NO ADDRESS ON FILE [facility], Lab Schedule 04/02/2011 Hospital [facility] General Encounter Laboratory Services [address] [phone] Social History Date Tobacco Use [...] Drop in both eyes 2 times daily. 03/31/2011 06/30/2011 zolpidem (AMBIEN) 10 mg Take 1 Tab by 30 Tab 2 Oral tablet mouth nightly as needed for Insomnia. 03/10/2011 03/01/2012 clopidogrel (PLAVIX) 75 Take 1 [...] mg Oral CpDR mouth daily before breakfast. 10/22/2010 04/29/2011 phenytoin (PHENYTEK) 200 Take 1 Cap by 60 Cap 5 mg Oral Cap mouth 2 times daily. In the morning and at bedtime. 09/10/2010 10/18/2012 LORazepam (ATIVAN) 1 mg Take 1 Tab by 60 Tab 2 Oral tablet mouth 2 times daily. 07/30/2010 11/10/2011 nitroglycerin (NITROSTAT) Place 1 Tab 25 Tab 0 0.4 mg Sublingual Subl under tongue every 5 minutes as needed for Chest Pain. 07/22/2010 08/04/2011 oxaprozin (DAYPRO) 600 mg Take 1 Tab by 30 Tab 11 Oral tablet mouth daily. 07/22/2010 07/28/2011 bethanechol (URECHOLINE) Take 1 Tab by 120 Tab 11 25 mg Oral tablet mouth 4 times daily. 07/16/2010 07/21/2011 tamsulosin (FLOMAX) 0.4 Take 1 Cap by 30 Cap 11 mg Oral capsule mouth daily. 30 min. After supper 05/14/2010 05/05/2011 metoprolol succinate ER Take 1 Tab by 30 Tab 11 24 hour (TOPROL XL) 25 mg mouth daily. Oral tablet 05/07/2010 06/30/2011 FLUoxetine (PROZAC) 20 mg Take 2 Caps 60 Cap 11 Oral capsule by mouth daily. 04/09/2010 04/07/2011 pioglitazone (ACTOS) 30 Take 1 Tab by 30 Tab 11 mg Oral tablet mouth daily. 01/23/2009 08/04/2011 simvastatin (ZOCOR) 80 mg Take 1 Tab by 30 Tab 5 Oral Tab mouth daily at bedtime. 03/15/2012 FLONASE 50 mcg/Actuation Administer 2 0 Both Nostril SpSn Sprays in each nostril daily. 12/29/2007 08/04/2011 TRICOR 145 mg Oral Tab Take 145 mg 0 by mouth daily with supper. 12/29/2007 07/12/2012 ZETIA 10 mg Oral Tab [...] Date/Time Associated Diag nosis HEMOGLOBIN A1C Stat 04/02/2011 DM w/o complica tion type 8:46 AM CDT I LIPID PANEL Stat 04/02/2011 Hyperlipidemia 8:46 AM CDT COMPREHENSIVE METABOLIC Stat 04/02/2011 Hyperl ipidemia PANEL 8:46 AM CDT documented in this encounter Results * COMPREHENSIVE METABOLIC PANEL (04/02/2011 8:46 AM CDT) GLUCOSE 149 (H) 70 - 100 mg/dl [facility] BUN 23.0 (H) 7 - 20 mg/dl [facility] CREATININE 0.90 0.8 - 1.3 mg/dl [facility] BUN/CREAT RATIO 25.6 (H) 10 - 20 [facility] GFR 91 >60 ml/min [facility] SODIUM 134 (L) 135 - 145 mmol/L [facility] POTASSIUM 4.3 3.3 - 4.8 mmol/L [facility] CHLORIDE 99 98 - 107 mmol/L [facility] CO2 26.3 22 - 31 mmol/L [facility] ANION GAP 13 4 - 20 [facility] CALCIUM 9.0 8.5 - 10.1 mg/dl [facility] ALBUMIN 4.3 3.4 - 5.0 g/dl [facility] TOTAL PROTEIN 7.3 6.4 - 8.2 g/dl [facility] GLOBULIN (CALC) 3.0 [facility] ALBUMIN/GLOBULI 1.4 [facility] BILIRUBIN TOTAL 0.3 <1.1 mg/dl [facility] ALKALINE 66 50 - 136 IU/L [facility] AST 20 10 - 40 IU/L [facility] ALT 31Comment: [facility] 25 - 70 IU/L [facility] ACCT#[id number], ,,,, CENTER [facility] Specimen Blood specimen (specimen) Performing Organization Address City/[facility] Ph one Number [facility] LABORATORY SERVICES CLIA# [id number] [place] [address] - [place] [address] [place] [address] [place] CLIA# [id number] Leon[place] [address] [facility] [address] [place] [address] * HEMOGLOBIN A1C (04/02/2011 8:46 AM CDT) HEMOGLOBIN A1C 6.5 (H) 0 - 6.0 % [facility] GLUCOSE, MEAN 140Comment: [facility] mg/dl [facility] BLOOD ACCT#[id number], ,,,, [place] [facility] Specimen Blood specimen (specimen) Performing Organization Address [facility] one Number [facility] LABORATORY SERVICES CLIA# [id number] GAB [place] [address] - [facility] [address] [place] [address] [place] CLIA# [id number] [place] [address] [facility] [address] [place] [address] * LIPID PANEL (04/02/2011 8:46 AM CDT) CHOLESTEROL 227 (H) 140 - 200 mg/dl [facility] [facility] TRIGLYCERIDE 348 (H) 0 - 199 mg/dl [facility] Comment: [place] REFERENCE RANGE - [facility] TRIGLYCERIDES NORMAL LESS THAN 150 mg/dl BORDERLINE HIGH 150 - 199 mg/dl HIGH 200 - 499 mg/dl VERY HIGH GREATER THAN OR = 500 mg/dl HDL 47 27 - 67 mg/dl [facility] LDL 125 <130 mg/dl [facility] CHOLESTEROL, Comment: [facility] RISK CATEGORY LDL GOAL High risk: <100 mg/dl CHD or CHD risk equivalents (optional goal: <70 mg/dl) (10-year risk > 20%) Moderately high risk <130 mg/dl 2+ risk factors (10-year risk 10% to 20%) Moderate risk: <130 mg/dl 2+ risk factors (10-year risk < 10%) Lower risk: <160 mg/dl 0-1 risk factor [facility] ACCT#[id number], ,,,, Specimen Blood specimen (specimen) Performing Organization Address City/State/[facility] Ph one Number [facility] LABORATORY SERVICES CLIA# [id number] [place] [address] - [place] [address] [place] [address] CLIA# [id number] Leonides JEFF[place] [address] [address] documented in this encounter Visit Diagnoses Diagnosis Hyperlipidemia Other and unspecified hyperlipidemia 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
--- OUTSIDE RECORDS SUMMARY | 2020-03-24 14:39 | XMS REPORT | Encounter Summary ---
Author Author [facility] Organization [facility] Address Unknown Phone Unavailable Care Team Providers Care Cranberry Sorter Name Role Phone Shahram Mccallum MD PCP Unavailable Encounter Details Care Team Description Date Type Department Shahram Mccallum MD NO ADDRESS ON FILE 12/29/2010 Abstract [facility] Primar y Care [place] [address] [place] [phone] Social History Date Tobacco Use Types Packs/Day [...]
--- OUTSIDE RECORDS SUMMARY | 2020-03-24 14:39 | XMS REPORT | Encounter Summary ---
Author Author [facility] Organization [facility] Address Unknown Phone Unavailable Care Team Providers Care Operations Business Partner Name Role Phone Shahram Mccallum MD PCP Unavailable Reason for Visit * Reason Comments Medication Refill Encounter Details Care Team Description Date Type Department Shahram Mccallum MD NO ADDRESS ON FILE 06/30/2011 Refill [facility] Primar y Care [address] [phone] Social History Date Tobacco Use Types Packs/Day [...]
--- OUTSIDE RECORDS SUMMARY | 2020-03-24 14:39 | XMS REPORT | Encounter Summary ---
Author Author [facility] Organization [facility] Address Unknown Phone Unavailable Care Team Providers Care Filter Washer And Presser Name Role Phone Shahram Mccallum MD PCP Unavailable Reason for Visit * Reason Comments Medication Refill Encounter Details Care Team Description Date Type Department Shahram Mccallum MD NO ADDRESS ON FILE 05/05/2011 Refill [facility] Primar y Care [address] [phone] Social History Date Tobacco Use Types Packs/Day [...]
--- OUTSIDE RECORDS SUMMARY | 2020-03-24 14:39 | XMS REPORT | Encounter Summary ---
Author Author [facility] Organization [facility] Address Unknown Phone Unavailable Care Team Providers Care Electrician Supervisor Name Role Phone Shahram Mccallum MD PCP Unavailable Reason for Visit * Reason Comments Medication Refill Encounter Details Care Team Description Date Type Department Shahram Mccallum MD NO ADDRESS ON FILE 03/03/2011 Refill [facility] Primar y Care [address] [phone] Social History Date Tobacco Use Types Packs/Day [...]
--- OUTSIDE RECORDS SUMMARY | 2020-03-24 14:39 | XMS REPORT | Encounter Summary ---
Author Author [facility] Organization [facility] Address Unknown Phone Unavailable Care Team Providers Care Telecommunications Facility Examiner Name Role Phone Shahram Mccallum MD PCP Unavailable Reason for Visit * Reason Comments Medication Refill Encounter Details Care Team Description Date Type Department Shahram Mccallum MD NO ADDRESS ON FILE 04/07/2011 Refill [facility] Primar y Care [address] [phone] Social History Date Tobacco Use Types Packs/Day [...]
--- OUTSIDE RECORDS SUMMARY | 2020-03-24 14:39 | XMS REPORT | Encounter Summary ---
Author Author [facility] Organization [facility] Address Unknown Phone Unavailable Care Team Providers Care Owner Professional Engineer Name Role Phone Shahram Mccallum MD PCP Unavailable Reason for Visit * Reason Comments Medication Refill Encounter Details Care Team Description Date Type Department Shahram Mccallum MD NO ADDRESS ON FILE 07/21/2011 Refill [facility] Primar y Care [address] [phone] Social History Date Tobacco Use Types Packs/Day [...]
--- OUTSIDE RECORDS SUMMARY | 2020-03-24 14:39 | XMS REPORT | Encounter Summary ---
Author Author [facility] Organization [facility] Address Unknown Phone Unavailable Care Team Providers Care Oxidized Finish Plater Name Role Phone Shharam Mccallum MD PCP Unavailable Encounter Details Care Team Description Date Type Department Shahram Mccallum MD NO ADDRESS ON FILE 02/24/2011 Abstract [facility] Primar y Care [place] [address] [place] [phone] Social History Date Tobacco Use Types Packs/Day [...]
--- OUTSIDE RECORDS SUMMARY | 2020-03-24 14:39 | XMS REPORT | Encounter Summary ---
Author Author [facility] Organization [facility] Address Unknown Phone Unavailable Care Team Providers Care Cad Designer Name Role Phone Shahram Mccallum MD PCP Unavailable Reason for Visit * Reason Comments Medication Refill Encounter Details Care Team Description Date Type Department Shahram Mccallum MD NO ADDRESS ON FILE 06/30/2011 Refill [facility] Primar y Care [address] [phone] Social History Date Tobacco Use Types Packs/Day [...]
--- OUTSIDE RECORDS SUMMARY | 2020-03-24 14:39 | XMS REPORT | Encounter Summary ---
Author Author [facility] Organization [facility] Address Unknown Phone Unavailable Care Team Providers Care Supervisor Dog License Officer Name Role Phone Shahram Mccallum MD PCP Unavailable Reason for Visit * Reason Comments Medication Refill Encounter Details Care Team Description Date Type Department Shahram Mccallum MD NO ADDRESS ON FILE 03/09/2011 Refill [facility] Primar y Care [address] [phone] Social History Date Tobacco Use Types Packs/Day [...]
--- OUTSIDE RECORDS SUMMARY | 2020-03-24 14:39 | XMS REPORT | Encounter Summary ---
Author Author [facility] Organization [facility] Address Unknown Phone Unavailable Care Team Providers Care Launch Engineer Name Role Phone Shahram Mccallum MD PCP Unavailable Reason for Visit * Reason Comments Medication Refill Encounter Details Care Team Description Date Type Department Shahram Mccallum MD NO ADDRESS ON FILE 12/15/2010 Refill [facility] Primar y Care [address] [phone] Social History Date Tobacco Use Types Packs/Day [...]
--- OUTSIDE RECORDS SUMMARY | 2020-03-24 14:39 | XMS REPORT | Encounter Summary ---
Author Author [facility] Organization [facility] Address Unknown Phone Unavailable Care Team Providers Care Reporting Coordinator Name Role Phone Shahram Mccallum MD PCP Unavailable Reason for Visit * Reason Comments Medication Refill Encounter Details Care Team Description Date Type Department Shahram Mccallum MD NO ADDRESS ON FILE 07/28/2011 Refill [facility] Primar y Care [address] [phone] Social History Date Tobacco Use Types Packs/Day [...]
--- OUTSIDE RECORDS SUMMARY | 2020-03-24 14:39 | XMS REPORT | Encounter Summary ---
Author Author [facility] Organization [facility] Address Unknown Phone Unavailable Care Team Providers Care Trauma Coordinator Name Role Phone Shahram Mccallum MD PCP Unavailable Encounter Details Care Team Description Date Type Department Jamey Pena MD [address] [place] [address] [facility], Lab Schedule 12/04/[address] [facility] General Encounter Laboratory Services [address] [phone] Social History Date Tobacco Use [...] Drop in both eyes 2 times daily. 12/03/2010 12/30/2010 zolpidem (AMBIEN) 10 mg Take 1 Tab by 30 Tab 0 Oral tablet mouth nightly as needed for Insomnia. 10/22/2010 04/29/2011 phenytoin (PHENYTEK) 200 Take 1 Cap by 60 Cap 5 mg Oral Cap mouth 2 times daily. In the morning and at bedtime. 09/10/2010 10/18/2012 LORazepam (ATIVAN) 1 mg Take 1 Tab by 60 Tab 2 Oral tablet mouth 2 times daily. 09/10/2010 03/09/2011 insulin glargine (LANTUS) Inject 20 0 100 unit/mL subCUT Soln Units by subcutaneous injection daily at bedtime. 07/30/2010 11/10/2011 nitroglycerin (NITROSTAT) Place 1 Tab [...] Tab 11 mg Oral tablet mouth daily. 02/19/2010 03/03/2011 loratadine (CLARITIN) 10 Take 1 Tab by 30 Tab 11 mg Oral tablet mouth daily. 02/04/2010 03/10/2011 clopidogrel (PLAVIX) 75 Take 1 Tab by 30 Tab 11 mg Oral Tab mouth daily. 12/25/2009 12/15/2010 isosorbide mononitrate SR Take 1 Tab by 60 Tab 11 24 hour (IMDUR) 60 mg mouth 2 times Oral tablet daily. 12/11/2009 12/15/2010 esomeprazole (NEXIUM) 40 Take 1 Cap by 30 Cap 11 mg Oral CpDR mouth daily before breakfast. 01/23/2009 08/04/2011 simvastatin (ZOCOR) 80 mg Take [...] Notes * Scanned Form - Aok Scanning, Amb Physician - 12/05/2010 10:37 AM TREATING PLANT PUMPER documented in this encounter Plan of Treatment Not on filedocumented as of this encounter Procedures Comments Procedure Name Priority Date/Time Associated Diag nosis PSA Routine 12/04/2010 BPH (benign pro static 9:35 AM TREATING PLANT PUMPER hyperplasia) BPH w urinary obs/LUTS BASIC METABOLIC PANEL Routine 12/04/2010 BPH (tacos ign prostatic 9:35 AM TREATING PLANT PUMPER hyperplasia) BPH w urinary obs/LUTS documented in this encounter Results * BASIC METABOLIC PANEL (12/04/2010 9:35 AM TREATING PLANT PUMPER) GLUCOSE 111 (H) 70 - 100 mg/dl [facility] BUN 20.0 7 - 20 mg/dl [facility] CREATININE 1.00 0.8 - 1.3 mg/dl [facility] BUN/CREAT RATIO 20.0 10 - 20 [facility] GFR 81 >60 ml/min [facility] SODIUM 138 135 - 145 mmol/L [facility] POTASSIUM 4.4 3.3 - 4.8 mmol/L [facility] CHLORIDE 101 98 - 107 mmol/L [facility] CO2 27.3 22 - 31 mmol/L [facility] ANION GAP 14 4 - 20 [facility] CALCIUM 9.0Comment: GAB JUAN 8.5 - 10.1 mg/dl [facility] ACCT#[id number], ,,,, [facility] Specimen Blood specimen (specimen) Performing Organization Address City/State/Zipcode Ph one Number [facility] CLIA# [id number] [place] [address] [address] [place] [address] [place], [place] [address]PEÑA# [id number] [place] [address] * PSA (12/04/2010 9:35 AM TREATING PLANT PUMPER) PSA 0.4 < OR = 4.0 ng/mL [facility] Comment: [facility] This test was performed using [facility] DS[facility]ZA the Siemens chemiluminescent method. Values obtained from different assay methods cannot be used interchangeably. PSA levels, regardless of value, should not be interpreted as absolute evidence of the presence or absence of disease. Test performed at Who@ [address] [place] [id number] Director: CHICHI CARTWRIGHT DO,MPH [employer]), ,,,, Specimen Blood specimen (specimen) Performing Organization Address City/State/Zipcode Ph one Number [facility] IA# [id number] [place] [address] [address] [place] [address] [place], [place] [address]PEÑA# [id number] Leon[place] [address] [place] [address] [address] [place] [address] documented in this encounter Visit Diagnoses Diagnosis BPH (benign prostatic hyperplasia) Unspecified hyperplasia of prostate wit hout urinary obstruction and other lower urinary tract symptoms (LUTS) Hypertrophy of prostate with urinary ob struction and other lower urinary tract symptoms (LUTS) documented in this encounter
--- NOTE | 2020-03-24 14:40 | NUR ---
Called Hellen Veloz, patients Power of Manufacturing Engineering Manager, to update on patient condition. Hellen states that if admitted, [facility] is where she would like him to go unless it is related to his heart. If heart related, his car distributor is Dr Oconnor in [place].
--- OUTSIDE RECORDS SUMMARY | 2020-03-24 14:40 | XMS REPORT | Encounter Summary ---
Author Author [facility] Organization [facility] Address Unknown Phone Unavailable Care Team Providers Care Title Searcher Name Role Phone Shahram Mccallum MD PCP Unavailable Reason for Visit * Reason Comments Medication Refill Encounter Details Care Team Description Date Type Department Self, Aries Montelongo MD [address] [place] [phone] 10/22/2010 Refill [facility] Primar y Care [place] [address] [place] [phone] Social History Date Tobacco Use [...]
--- OUTSIDE RECORDS SUMMARY | 2020-03-24 14:40 | XMS REPORT | Encounter Summary ---
Author Author [facility] Organization [facility] Address Unknown Phone Unavailable Care Team Providers Care Mimeographer Name Role Phone Shahram Mccallum MD PCP Unavailable Encounter Details Care Team Description Date Type Department Shahram Mccallum MD NO ADDRESS ON FILE 09/30/2010 Abstract [facility] Primar y Care [place] [address] [place] [phone] Social History Date Tobacco Use Types Packs/Day [...]
--- OUTSIDE RECORDS SUMMARY | 2020-03-24 14:40 | XMS REPORT | Encounter Summary ---
Author Author [facility] Organization [facility] Address Unknown Phone Unavailable Care Team Providers Care Technical Advisor Name Role Phone Shahram Mccallum MD PCP Unavailable Reason for Visit * Reason Comments Post Hospital Check Encounter Details Care Team Description Date Type Department Shahram Mccallum MD NO ADDRESS ON FILE DM w/o complication type I; Other convulsions; Cellulitis; Bipolar disorder, unspecified; Hyperlipidemia 09/29/2010 Office Visit [facility] Prim[facility] [address] [place] [phone] Social History Date Tobacco [...] Signs Reading Time Taken Comments Vital Sign 118/74 09/29/2010 11:10 AM RETAIL ASSISTANT Blood Pressure 64 09/29/2010 11:10 AM RETAIL ASSISTANT Pulse - - Temperature - - Respiratory Rate - - Oxygen Saturation - - Inhaled Oxygen Concentration 98.4 kg (217 lb) 09/29/2010 11:10 AM RETAIL ASSISTANT Weight - - Height 35.02 09/13/2010 12:45 PM CDT Body Mass Index documented in this encounter Progress Notes * Shahram Mccallum MD - 09/29/2010 1:29 PM RETAIL ASSISTANT Subjective: Oliverio Dalton is a 60 y.o. [...] needed fo r Insomnia. 30 Tab 0 rifampin (RIFADINE) 300 mg Oral capsule Take 1 Cap by mouth every 12 hours. 20 Cap 0 LORazepam (ATIVAN) 1 mg Oral tablet Take 1 Tab by mouth 2 times daily. 60 T ab 2 insulin glargine (LANTUS) 100 unit/mL subCUT Soln Inject 20 Units by subcuta neous injection daily at bedtime. nitroglycerin (NITROSTAT) 0.[address] [...] Caps by mouth daily. 60 Cap 11 phenytoin (PHENYTEK) 200 mg Oral Cap Take 1 Cap by mouth 2 times daily. In t he morning and at bedtime. 60 Cap 5 pioglitazone (ACTOS) 30 mg Oral tablet Take 1 Tab by mouth daily. 30 Tab 1 1 loratadine (CLARITIN) 10 mg Oral tablet Take 1 Tab by mouth daily. 30 Tab 11 clopidogrel (PLAVIX) 75 mg Oral Tab [...] daily. In the am & pm prn ALTACE 10 mg Oral Cap Take 10 mg by mouth daily with lunch. TYLENOL 325 mg Oral Tab Take 1-2 Tabs by mouth every 4 hours as needed for P ain. Component Value Date CREATININE 1.16 09/16/2010 BUN 21.0 09/16/2010 SODIUM 133 09/16/2010 POTASSIUM 4.5 09/16/2010 CHLORIDE 100 09/16/2010 CO2 30.2 09/16/2010 GFR 68 09/16/2010 Component Value Date WBC 6.50 09/16/2010 HEMOGLOBIN 12.7 09/16/2010 HEMATOCRIT 35.5 09/16/2010 PLATELETS 281 09/16/2010 MCV 86.1 09/16/2010 HPI: Mr. Dalton complains of the following (by systems): Anxiety symptoms: anxious and stressed but stable Arthritis symptoms: diffuse arthralgias Chest Pain symptoms: none COPD related symtoms: cough and wheezing recent hosp with cellulitis and MRSA. now has completed antibiotics and recogni zemckay leg is much better Review of Systems: ROS Denies all of the following: Headache Dizziness Chest pain Shortness of breath Bowel changes Bladder changes Pain in muscle or joints No recurrent seizures and tolerating increased dose of dilantin Exam/Objective: Normal Exam for Routine Visits: \Blood pressure 118/74, pulse 64, weight 217 lb (98.431 kg). General appearance: active, alert, cooperative, social, normally nourished, and in no acute distress Lungs: breath sounds equal, clear to auscultation bilaterally, no retractions, n o stridor, normal respiratory effort Heart: regular rate and rhythm, S1, S2 normal, murmur, click, rub, gallop, or a bnormal sounds. Abdomen: soft, non-tender. Bowel sounds normal. No masses, no organomegaly. Ac tive bowel sounds. Extremities: symmetrical non edematous. Bandaged R lower leg but area is much im proved with no redness, drainage and essential complete closure of area. Assessment and Plan: ASSESSMENT: Encounter Diagnoses Name Primary? DM w/o complication type I Other convulsions Cellulitis Bipolar disorder, unspecified Hyperlipidemia PLAN: Orders Placed This Encounter Cmp Lipid panel Hemoglobin a1c Phenytoin total Cbc with differential complete therapeutic dressings this week F/u per ongoing schedule Appropriate medications prescribed (see detailed AVS). Appropriate patient instructions provided (see detailed AVS). Follow-up as I have indicated. Medications and options explained to include common side effects. Understanding of medications, course, diagnosis, and expectations were expressed by patient/g uardian. [place] ASSISTANT documented in this encounter Plan of Treatment Not on filedocumented as of this encounter Results * CBC WITH DIFFERENTIAL (11/24/2010 7:37 AM RETAIL ASSISTANT) WBC 5.98 3.0 - 10.4 x10E3 [facility] RBC 4.75 4.15 - 5.75 x10E6 [facility] HEMOGLOBIN 14.0 13.8 - 17.4 g/dL [facility] HEMATOCRIT 40.5 38.6 - 49.4 % [facility] MCV 85.3 79 - 100 fL [facility] MCH 29.4 28 - 34 pg [facility] MCHC 34.5 32 - 35 g/dL [facility] RDW 13.7 12.1 - 14.1 % [facility] PLATELETS 284 148 - 408 x10E3 [facility] MPV 6.9 (L) 7.4 - 10.6 fL [facility] NEUTROPHILS 67.5 43 - 73 % [facility] LYMPHOCYTES 23.9 19 - 47 % [facility] MONOCYTES 6.3 3 - 9 % [facility] EOSINOPHILS 2.0 0 - 6 % [facility] BASOPHILS 0.3 0 - 1.2 % [facility] NEUTROPHIL 4.04 1.3 - 7.6 x10E3 [facility] LYMPHOCYTE 1.43 0.6 - 4.9 x10E3 [facility] MONOCYTE 0.38 0.1 - 0.9 x10E3 [facility] EOSINOPHIL 0.12 0.0 - 0.2 x10E3 [facility] BASOPHILS 0.02Comment: MERCEDESGAB LYNN 0 - 0.1 x10E3 [facility] ACCT#[id number], ,,,, [facility] Specimen Blood specimen (specimen) Performing Organization Address City/[facility] Ph one Number [facility] CLIA# [id number] [place] [address] - [email or web address] [address] [place] [address] [place] CLIA# [id number] Leon[place] [address] * PHENYTOIN LEVEL, TOTAL (11/24/2010 7:33 AM RETAIL ASSISTANT) PHENYTOIN TOTAL 21.0 (H)Comment: 10 - 20 ug/ml [facility] [place] ACCT#[id number], ,,,[facility] Specimen Blood specimen (specimen) Performing Organization Address City/[facility] Ph one Number [facility] CLIA# [id number] [place] [address] - [place] [address] [place] [address] [place] CLIA# [id number] Leonides JEFF[place] [address] [facility] [address] [place] [address] * HEMOGLOBIN A1C (11/24/2010 7:33 AM RETAIL ASSISTANT) HEMOGLOBIN A1C 6.8 (H) 0 - 6.0 % [facility] GLUCOSE, MEAN 148Comment: SUGEYZAYDASANJEEVGAB mg/dl [facility] ACCT#[id number], ,,,, [facility] Specimen Blood specimen (specimen) Performing Organization Address City/State/[facility] Ph one Number [facility] CLIA# [id number] [place] [address] - [place] [address] [place] [address] CLIA# [id number] [place] [address] [facility] [address] [place] [address] * LIPID PANEL (11/24/2010 7:33 AM RETAIL ASSISTANT) CHOLESTEROL 215 (H) 140 - 200 mg/dl [facility] TRIGLYCERIDE 280 (H) 0 - 199 mg/dl [facility] Comment: [facility] TRIGLYCERIDES NORMAL LESS THAN 150 mg/dl [place] HIGH 150 - 199 mg/dl HIGH 200 - 499 mg/dl VERY HIGH GREATER THAN OR = 500 mg/dl HDL 46 27 - 67 mg/dl [facility] LDL 124 <130 mg/dl [facility] CHOLESTEROL, Comment: TALYA WINN DIRECT [facility] RISK CATEGORY LDL GOAL High risk: <100 mg/dl CHD or CHD risk equivalents (optional goal: <70 mg/dl) (10-year risk > 20%) Moderately high risk <130 mg/dl 2+ risk factors (10-year risk 10% to 20%) Moderate risk: <130 mg/dl 2+ risk factors (10-year risk < 10%) Lower risk: <160 mg/dl 0-1 risk factor [facility] ACCT#[id number], ,,,, Specimen Blood specimen (specimen) Performing Organization Address City/State/[facility] Ph one Number [facility] CLIA# [id number] [place] [address] - [place] [address] [place] [address] CLIA# [id number] Leonides [place] S [address] * COMPREHENSIVE METABOLIC PANEL (11/24/2010 7:33 AM RETAIL ASSISTANT) [facility] GLUCOSE 134 (H) 70 - 100 mg/dl [facility] BUN 28.0 (H) 7 - 20 mg/dl [facility] CREATININE 0.98 0.8 - 1.3 mg/dl [facility] BUN/CREAT RATIO 28.6 (H) 10 - 20 [facility] GFR 83 >60 ml/min [facility] SODIUM 140 135 - 145 mmol/L [facility] POTASSIUM 4.2 3.3 - 4.8 mmol/L [facility] CHLORIDE 106 98 - 107 mmol/L [facility] CO2 25.9 22 - 31 mmol/L [facility] ANION GAP 12 4 - 20 [facility] CALCIUM 8.8 8.5 - 10.1 mg/dl [facility] ALBUMIN 4.1 3.4 - 5.0 g/dl [facility] TOTAL PROTEIN 7.0 6.4 - 8.2 g/dl [facility] GLOBULIN (CALC) 2.9 [facility] ALBUMIN/GLOBULI 1.4 [facility] RATIO [facility] BILIRUBIN TOTAL 0.3 <1.1 mg/dl [facility] ALKALINE 56 50 - 136 IU/L [facility] PHOSPHATASE [facility] AST 22 10 - 40 IU/L [facility] ALT 31Comment: [facility]NN 25 - 70 IU/L [facility] ACCT#[id number], ,,,, [facility] Specimen Blood specimen (specimen) Performing Organization Address City/State/Zipcode Ph one Number [facility] CLIA# [id number] [place] [address] - [place] [address] [place] [address] CLIA# [id number] Leonides [place] [address] documented in this encounter Visit Diagnoses Diagnosis Type I (juvenile type) diabetes mellitu s without mention of complication, not stated as uncontrolled Other convulsions Cellulitis Cellulitis and abscess of unspecified s ite Bipolar disorder, unspecified Hyperlipidemia Other and unspecified hyperlipidemia documented in this encounter
--- OUTSIDE RECORDS SUMMARY | 2020-03-24 14:40 | XMS REPORT | Encounter Summary ---
Author Author [facility] Organization [facility] Address Unknown Phone Unavailable Care Team Providers Care Meat [employer]er And Slicer Name Role Phone Shahram Mccallum MD PCP Unavailable Reason for Visit * Reason Comments Diabetes Encounter Details Care Team Description Date Type Department Shahram Mccallum MD NO ADDRESS ON FILE DM w/o complication type I; Cor athrscl-uns vessel; Other convulsions; Chronic airway obstruction, not elsewhere classified; Unspecified essential hypertension; Dysuria; Hyperlipidemia 11/24/2010 Office Visit [facility] [address] [id number] Social History Date Tobacco Use Types Packs/Day [...] Reading Time Taken Comments Vital Sign 120/74 11/24/2010 10:43 AM GLASS ARTIST Blood Pressure 64 11/24/2010 10:43 AM GLASS ARTIST Pulse - - Temperature - - Respiratory Rate - - Oxygen Saturation - - Inhaled Oxygen Concentration 100.7 kg (222 lb) 11/24/2010 10:43 AM GLASS ARTIST Weight - - Height 35.83 09/13/2010 12:45 PM CDT Body Mass Index documented in this encounter Progress Notes * Shahram Mccallum MD - 11/24/2010 11:09 AM GLASS ARTIST Subjective: Oliverio Dalton is a 60 y.o. [...] needed fo r Insomnia. 30 Tab 0 phenytoin (PHENYTEK) 200 mg Oral Cap Take [...] Lab Results Component Value Date HEMOGLOBIN A1C 6.8 11/24/2010 HEMOGLOBIN A1C 6.7 05/08/2010 HEMOGLOBIN A1C 7.3 02/06/2010 MICROALBUMIN, URINE 17.7 11/24/2010 LDL CALCULATED 0 06/29/2008 LDL CHOLESTEROL, DIRECT 124 11/24/2010 CREATININE 0.98 11/24/2010 Lab Results Component Value Date CHOLESTEROL 215 11/24/2010 CHOLESTEROL 225 05/08/2010 CHOLESTEROL 273 02/06/2010 HDL 46 11/24/2010 HDL 48 05/08/2010 HDL 46 02/06/2010 LDL CALCULATED 0 06/29/2008 LDL CALCULATED 0 04/26/2006 LDL CHOLESTEROL, DIRECT 124 11/24/2010 LDL CHOLESTEROL, DIRECT 130 05/08/2010 LDL CHOLESTEROL, DIRECT 148 02/06/2010 TRIGLYCERIDE 280 11/24/2010 TRIGLYCERIDE 363 05/08/2010 TRIGLYCERIDE 573 02/06/2010 ALT 31 11/24/2010 AST 22 11/24/2010 Lab Results Component Value Date CREATININE 0.98 11/24/2010 BUN 28.0 11/24/2010 SODIUM 140 11/24/2010 POTASSIUM 4.2 11/24/2010 CHLORIDE 106 11/24/2010 CO2 25.9 11/24/2010 GFR 83 11/24/2010 Lab Results Component Value Date ALT 31 11/24/2010 AST 22 11/24/2010 ALKALINE PHOSPHATASE 56 11/24/2010 BILIRUBIN TOTAL 0.3 11/24/2010 HPI: Mr. Dalton complains of the following (by systems): Chest Pain symptoms: none Depression like symptoms: depressed mood, difficulty concentrating and impaired memory Diabetes Type II complaints: medication compliance: compliant most of the time , diabetic diet compliance: compliant most of the time, home glucose monitoring: is performed regularly Hypertension related symtoms/issues: taking medications as instructed, no side effects of medications, no chest pain on exertion, no dyspnea on exertion, no ed lian having more difficutly with ED. is not candidate for viagra No complications related to lipids or lipid therapy. Review of Systems: ROS Denies all of the following: Headache Dizziness Chest pain Shortness of breath Bowel changes Bladder changes Pain in muscle or joints Exam/Objective: Normal Exam for Routine Visits: \Blood pressure 120/74, pulse 64, weight 222 lb (100.699 kg). General appearance: chronic ill appearing, active, [...] organomegaly. Ac tive bowel sounds. Extremities: asymmetrical non edematous. Assessment and Plan: ASSESSMENT: Encounter Diagnoses Name Primary? DM w/o complication type I Cor athrscl-uns vessel Other convulsions Chronic airway obstruction, not elsewhere classified Unspecified essential hypertension Dysuria Hyperlipidemia PLAN: Orders Placed This Encounter Urinalysis with reflex culture Cmp (4 months x 1) Lipid panel (4 months x 1) Hemoglobin a1c (4 months x 1) See uro re: ED, this is sociallly important to him Appropriate medications prescribed (see detailed AVS). Appropriate patient instructions provided (see detailed AVS). Follow-up as I have indicated. Medications and options explained to include common side effects. Understanding of medications, course, diagnosis, and expectations were expressed by patient/g uardian. S ARTIST documented in this encounter Plan of Treatment Not on filedocumented as of this encounter Results * HEMOGLOBIN A1C (04/02/2011 8:46 AM CDT) HEMOGLOBIN A1C 6.5 (H) 0 - 6.0 % [facility] GLUCOSE, MEAN 140Comment: GAB JUAN mg/dl [facility] BLOOD ACCT#[id number], ,,,, [facility] Specimen Blood specimen (specimen) Performing Organization Address City/State/Zipcode Ph one Number [facility] CLIA# [id number] [place] [phone] - [place] [facility] [address] [place] [address] CLIA# [id number] Leonides [place] S [address] * LIPID PANEL (04/02/2011 8:46 AM CDT) CHOLESTEROL 227 (H) 140 - 200 mg/dl [facility] TRIGLYCERIDE 348 (H) 0 - 199 mg/dl [facility] Comment: [facility] TRIGLYCERIDES NORMAL LESS THAN 150 mg/dl BORDERLINE HIGH 150 - 199 mg/dl HIGH 200 - 499 mg/dl VERY HIGH GREATER THAN OR = 500 mg/dl HDL 47 27 - 67 mg/dl [facility] LDL 125 <130 mg/dl [facility] CHOLESTEROL, Comment: [facility] RISK CATEGORY LDL GOAL High risk: <100 mg/dl CHD or CHD risk equivalents (optional goal: <70 mg/dl) (10-year risk > 20%) Moderately high risk <130 mg/dl 2+ risk factors (10-year risk 10% to 20%) Moderate risk: <130 mg/dl 2+ risk factors (10-year risk < 10%) Lower risk: <160 mg/dl 0-1 risk factor [facility] ACCT#[id number], ,,,, Specimen Blood specimen (specimen) Performing Organization Address City/State/Zipcode Ph one Number [facility] CLIA# [id number] [place] [phone] - [place] [facility] [address] [place] [address] [place]# [id number] Leonides [place] [id number] * COMPREHENSIVE METABOLIC PANEL (04/02/2011 8:46 AM CDT) GLUCOSE 149 (H) 70 - 100 mg/dl [facility] BUN 23.0 (H) 7 - 20 mg/dl [facility] CREATININE 0.90 0.8 - 1.3 mg/dl [facility] BUN/CREAT RATIO 25.6 (H) 10 - 20 [facility] GFR 91 >60 ml/min [facility] SODIUM 134 (L) 135 - 145 mmol/L [facility] POTASSIUM 4.3 3.3 - 4.8 mmol/L [facility] CHLORIDE 99 98 - 107 mmol/L [facility] CO2 26.3 22 - 31 mmol/L [facility] ANION GAP 13 4 - 20 [facility] CALCIUM 9.0 8.5 - 10.1 mg/dl [facility] ALBUMIN 4.3 3.4 - 5.0 g/dl [facility] TOTAL PROTEIN 7.3 6.4 - 8.2 g/dl [facility] GLOBULIN (CALC) 3.0 [facility] ALBUMIN/GLOBULI 1.4 [facility] N RATIO [facility] BILIRUBIN TOTAL 0.3 <1.1 mg/dl [facility] ALKALINE 66 50 - 136 IU/L [facility] PHOSPHATASE [facility] AST 20 10 - 40 IU/L [facility] ALT 31Comment: [facility] 25 - 70 IU/L [facility] ACCT#[id number], ,,,, [facility] Specimen Blood specimen (specimen) Performing Organization Address City/State/Zipcode Ph one Number [facility] CLIA# [id number] [place] [phone] - [place] [facility] [address] [place] [address] CLIA# [id number] Leonides JEFF[place] [address] documented in this encounter Visit Diagnoses Diagnosis Type I (juvenile type) diabetes mellitu s without mention of complication, not stated as uncontrolled Coronary atherosclerosis of unspecified type of vessel, [place] or graft Other convulsions Chronic airway obstruction, not elsewhe re classified Unspecified essential hypertension Dysuria Hyperlipidemia Other and unspecified hyperlipidemia documented in this encounter
--- OUTSIDE RECORDS SUMMARY | 2020-03-24 14:40 | XMS REPORT | Encounter Summary ---
Author Author [facility] Organization [facility] Address Unknown Phone Unavailable Care Team Providers Care River Boat Captain Name Role Phone Shahram Mccallum MD PCP Unavailable Reason for Referral * Eval and Treat (Routine) Referred By Contact Referred To Contact Status Reason Specialty Diagnoses / Procedures Shahram Mccallum MD NO ADDRESS ON FILE Closed Diagnoses MRSA (methicillin resistant staph aureus) culture positive Cellulitis Reason for Visit * Auth/Cert Referred By Contact Referred To Contact Status Reason Specialty Diagnoses / Procedures [facility] [address] [place] [address] Closed Inpatient Diagnoses CELLULITIS Encounter Details Care Team Description Date Type Department Shahram Mccallum MD NO ADDRESS ON FILE MRSA (methicillin resistant staph aureus ) culture positive 09/13/2010 [facility] - Encounter [facility] 09/16/2010 [address] [place] [address] Social History Date Tobacco Use [...] Signs Reading Time Taken Comments Vital Sign 132/91 09/16/2010 8:41 AM PER DIEM REGISTERED NURSE Blood Pressure 69 09/16/2010 8:41 AM PER DIEM REGISTERED NURSE Pulse 36.3 C (97.3 F) 09/16/2010 8:41 AM PER DIEM REGISTERED NURSE Temperature 16 09/16/2010 8:41 AM PER DIEM REGISTERED NURSE Respiratory Rate 99% 09/16/2010 8:41 AM PER DIEM REGISTERED NURSE Oxygen Saturation - - Inhaled Oxygen Concentration 98.9 kg (218 lb 1.6 oz) 09/15/2010 5:28 AM PER DIEM REGISTERED NURSE Weight 167.6 cm (5' 6") 09/13/2010 12:45 PM CDT Height 35.2 09/13/2010 12:45 PM CDT Body Mass Index documented in this encounter Discharge Summaries * Shahram Mccallum MD - 09/16/2010 8:17 AM PER DIEM REGISTERED NURSE [address] [address] DISCHARGE SUMMARY Patient: OLIVERIO DALTON Location: [facility] Room#: 112 [facility]: [id number] Date of Admission: 09/13/2010 Date of Discharge: DISMISSAL DIAGNOSES: 1. MRSA (methicillin-resistant Staphylococcus aureus) cellulitis of right forele g. 2. Arteriosclerotic vascular disease. 3. Diabetes. HISTORY: This is a 60-year-old gentleman who is admitted acute care [facility] developing progressive cellulitis to the right lower leg unresponsive to outp atient management. Subsequently was treated with vancomycin, is improved but ad mitted to swing bed for ongoing care. LABORATORY AND X-RAY DATA: Followed sequentially on the day of dismissal his WB C's are 6.5, hemoglobin 12.7, hematocrit 35 which is stable. Lab chemistries so dium is 133 this too is stable. Liver function studies recently is 09/10 are no rmal. D-dimers are normal. Point of service glucoses have been moderately elev ated in the 170-220 range. HOSPITAL COURSE: Since his admission to a swing bed the patient has done well. He had some cardiac rhythm issues during the acute care stay, but these have not recurred. He is tolerating adequate activity well. The lesion on the right l ower leg is markedly improved with less erythema, less angry, no surrounding tanner lulitis. Today prior to dismissal he was started back on his regimen of Septra and we added Rifampin. He will complete a 10-day course of these 2 medications. Home health will be involved for follow up in wound care followup. The patient has ongoing appointments in our office which he will keep and we will monitor his other multiple medical problems at that time as well as any skin issues. He , of course, will follow up acutely if there is increased difficulties or compli cations. Dictated by: Shahram Mccallum MD/MEDQ d: 09/16/2010 07:59:56 t: 09/16/2010 08:10:40 Voice job id: [id number] Internal Job id: [id number] DIEM REGISTERED NURSE * Shahram Mccallum MD - 09/16/2010 7:51 AM PER DIEM REGISTERED NURSE This discharge note has been dictated. DIEM REGISTERED NURSE documented in this encounter Discharge Instructions * Patient Instructions* Johnnie Duque Physician - 09/17/2010 11:56 AM PER DIEM REGISTERED NURSE * Additional Instructions* Justine Simmons RN - 09/16/2010 FOLLOW-UP Follow up with Shahram Mccallum MD as already scheduled. SIGNS AND SYMPTOMS TO REPORT Contact me if you experience any of the following symptoms: any worsening of you r condition. ACTIVITY Your activity level is: activity as tolerated and remember good hand washing. DIET Your diet is: Diabetic diet (specify calories / restrictions) and heart healthy YOUR HOSPITAL PROBLEMS ADDRESSED INCLUDE Patient Active Hospital Problem List: *MRSA (methicillin resistant staph aureus) culture positive (09/12/2010) PRESCRIPTIONS: Prescriptions given? Yes and Printed WOUND CARE For your wound/incision: MRSA positive leg wound, Clean with sterile water, franca sten silver seal and guaze with sterile water. Cover with a dry ABD, on Wednesday, Wed, and Wednesday. Contact Janell Marie RN wound care for any questions. MEDICATIONS Reminder-- Please discard any old medication [...] second hand smoke. THANK YOU FOR CHOOSING [facility] We are committed to providing you very good care and we want to exceed your expe ctations. When you get home, you may receive a letter from our President/RIVET HAMMER MACHINE OPERATOR a nd a survey. We sincerely ask that you take a few moments to fill out the surve y and return it in the postage paid envelope. * Attachments The following attachments cannot be sent through Care Everywhere.* MRSA: AFTER YOUR VISIT ([place]) documented in this encounter Medications at Time of Discharge Start Date End Date Medication Sig Dispensed Refills 12/29/2007 BETIMOL 0.5 % OP Drop Administer 1 0 Drop in both eyes 2 times daily. 09/10/2010 10/18/2012 LORazepam (ATIVAN) 1 mg Take 1 Tab by 60 Tab 2 Oral tablet mouth 2 times daily. 09/10/2010 03/09/2011 insulin glargine (LANTUS) Inject 20 0 100 unit/mL subCUT Soln Units by subcutaneous injection daily at bedtime. 09/07/2010 09/17/2010 trimethoprim-sulfamethoxa Take 1 Tab by 20 Tab 0 zole (BACTRIM DS) 800-160 mouth 2 times mg Oral daily for 10 tabletIndications: days. Cellulitis 07/30/2010 11/10/2011 nitroglycerin (NITROSTAT) Place 1 Tab [...] capsule mouth daily. 30 min. After supper 07/03/2010 09/24/2010 zolpidem (AMBIEN) 10 mg Take 1 Tab by 30 Tab 2 Oral tablet mouth nightly as needed for Insomnia. 05/14/2010 05/05/2011 metoprolol succinate ER Take 1 Tab by 30 Tab 11 24 hour (TOPROL XL) 25 mg mouth daily. Oral tablet 05/07/2010 06/30/2011 FLUoxetine (PROZAC) 20 mg Take 2 Caps 60 Cap 11 Oral capsule by mouth daily. 04/23/2010 10/22/2010 phenytoin (PHENYTEK) 200 Take 1 Cap by 60 Cap 5 mg Oral Cap mouth 2 times daily. In the morning and at bedtime. 04/09/2010 04/07/2011 pioglitazone (ACTOS) 30 Take 1 [...] as of this encounter Progress Notes * Aok Scanning, Amb Physician - 09/23/2010 11:48 AM PER DIEM REGISTERED NURSE * Aok Scanning, Amb Physician - 09/18/2010 11:22 AM PER DIEM REGISTERED NURSE * Johnnie Duque Physician - 09/17/2010 11:56 AM PER DIEM REGISTERED NURSE * Justine Simmons, PRIYA - 09/16/2010 8:44 AM PER DIEM REGISTERED NURSE [facility] currently has patient on service, notified Salma that patient wa s being dismissed home today, and to observe MRSA precautions, discharge instruc tions and home medication list faxed to home care. DIEM REGISTERED NURSE * Shahram Mccallum MD - 09/15/2010 7:56 AM PER DIEM REGISTERED NURSE Admit Date: 09/13/2010 Subjective: Patient Active Hospital Problem List: *MRSA (methicillin resistant staph aureus) culture positive (09/12/2010) Patient has no complaint of increased pain, fever, drainage. had chest wall pain last noc. note mod elevated sugars but not acutely changed. Objective: Patient Vitals in the past 8 hrs: SpO2 Weight 09/15/10 0729 100 % - 09/15/10 0528 - 218 lb 1.6 oz (98.93 kg) Intake/Output Summary (Last 24 hours) at 09/15/10 0756 Last data filed at 09/15/10 0500 Gross per 24 hour Intake 2550 ml Output 2200 ml Net 350 ml Results for orders placed during the hospital encounter of 09/13/10 (from the [facility] 24 hour(s)) POC GLUCOSE Component Value Range POC GLUCOSE 234 (*) 70-110 (mg/dl) POC GLUCOSE GRAPH VALUE 234 (*) 70-110 (mg/dl) POC GLUCOSE Component Value Range POC GLUCOSE 222 (*) 70-110 (mg/dl) POC GLUCOSE GRAPH VALUE 222 (*) 70-110 (mg/dl) VANCOMYCIN LEVEL TROUGH Component Value Range VANCOMYCIN, TROUGH 13.6 10-20 (ug/ml) POC GLUCOSE Component Value Range POC GLUCOSE 118 (*) 70-110 (mg/dl) POC GLUCOSE GRAPH VALUE 118 (*) 70-110 (mg/dl) BP 124/70 | Pulse 64 | Temp(Src) 97.5 F (36.4 C) (Tympanic) | Resp 18 | Ht 5 ' 6" (1.676 m) | Wt 218 lb 1.6 oz (98.93 kg) | SpO2 100% General appearance: alert, in no distress Lungs: clear to auscultation bilaterally, normal respiratory effort Heart: normal rate, regular rhythm, normal S1, S2, no murmurs, rubs, clicks or g allops Leg healing Xrays: reviewed Assessment: Patient Active Hospital Problem List: *MRSA (methicillin resistant staph aureus) culture positive (09/12/2010) Plan: See orders. Add / change to zyvox and plan for home in am if stable DIEM REGISTERED NURSE * Shahram Mccallum MD - 09/14/2010 11:36 AM PER DIEM REGISTERED NURSE Admit Date: 09/13/2010 Subjective: Patient Active Hospital Problem List: * No active hospital problems. * Patient has no complaint of c-v or resp ill or changes. legs are feeling better and he thinks lesions are smaller. Objective: Patient Vitals in the past 8 hrs: BP Temp Temp src Resp SpO2 09/14/10 0834 157/81 mmHg 96.7 F (35.9 C) Tympanic 19 98 % 09/14/10 0715 - - - - 100 % Intake/Output Summary (Last 24 hours) at 09/14/10 1136 Last data filed at 09/14/10 0200 Gross per 24 hour Intake 1340 ml Output 2100 ml Net -760 ml Results for orders placed during the hospital encounter of 09/13/10 (from the [facility] 24 hour(s)) POC GLUCOSE Component Value Range POC GLUCOSE 197 (*) 70-110 (mg/dl) POC GLUCOSE GRAPH VALUE 197 (*) 70-110 (mg/dl) POC GLUCOSE Component Value Range POC GLUCOSE 162 (*) 70-110 (mg/dl) POC GLUCOSE GRAPH VALUE 162 (*) 70-110 (mg/dl) VANCOMYCIN LEVEL TROUGH Component Value Range VANCOMYCIN, TROUGH 13.6 10-20 (ug/ml) BP 157/81 | Pulse 73 | Temp(Src) 96.7 F (35.9 C) (Tympanic) | Resp 19 | Ht 5 ' 6" (1.676 m) | Wt 218 lb (98.884 kg) | SpO2 98% General appearance: alert, in no distress Area on leg is reducing in size and less angry apperaing Xrays: reviewed Assessment: Patient Active Hospital Problem List: * No active hospital problems. * Plan: See orders. Will con vanco today Plan for zyvox and home if tolerates and is approved for med. DIEM REGISTERED NURSE * Fara Sommer RN - 09/13/2010 2:12 PM CDT Patient changed to swingbed status @ 1235, per physician's order. Patient remained in same room with same primary RN. SAMPLE BUILDER med list not updated at this time. All other pieces of admission assessment completed; see admission navigator and doc flowsheets for further details. documented in this encounter H&P Notes * Aok Scanning, [facility] Physician - 09/16/2010 12:38 PM PER DIEM REGISTERED NURSE documented in this encounter Procedure Notes * Aok Scanning, [facility] Physician - 09/17/2010 12:24 PM PER DIEM REGISTERED NURSE Associated Order(s): TELEMETRY REPORT; TELEMETRY REPORT documented in this encounter Miscellaneous Notes * Scanned Form - Aok Scanning, [facility] Physician - 09/24/2010 12:45 PM PER DIEM REGISTERED NURSE * Scanned Form - Aok Scanning, [facility] Physician - 09/17/2010 11:56 AM PER DIEM REGISTERED NURSE * Code Documentation - Aok Scanning, [facility] Physician - 09/17/2010 11:56 AM PER DIEM REGISTERED NURSE * Scanned Form - Aok Scanning, [facility] Physician - 09/17/2010 11:56 AM PER DIEM REGISTERED NURSE * Scanned Form - Aok Scanning, [facility] Physician - 09/17/2010 11:56 AM PER DIEM REGISTERED NURSE * Care Plan - Fara Sommer RN - 09/16/2010 12:15 PM PER DIEM REGISTERED NURSE Problem: Infection, Risk/Actual (Adult, OB) Goal: Verbalize Understanding: Condition, plan of care, self-management of healt h/lifestyle alterations Patient/Family/S.O. will verbalize an understanding of Infection, Risk/Actual (A dult) its impact on present/future lifestyle, health status and functional perfo rmance Outcome: Completed Date Met: 09/16/10 Goal met. Patient and caregiver verbalized understanding of above information prior to the patient's dismissal. Patient was discharged to home with home health to follow, per physician's order s, on 09/16/2010 @ 1015. Goal: Infection Prevention/Resolution/Control Refer to Clinical Practice Guideline Outcome: Completed Date Met: 09/16/10 Goal ongoing. Patient was dismissed to home with home health to continue wound care. Patient, family, and caregiver educated regarding infection control. Patient was discharged to home with home health to follow, per physician's order s, on 09/16/2010 @ 1015. Problem: Trauma/Injury Risk (Adult, OB) Goal: Verbalize Understanding: Condition, plan of care, self-management of healt h/lifestyle alterations Patient/Family/S.O. will verbalize an understanding of Trauma/Injury Risk (Adult , OB, Pediatric) its impact on present/future lifestyle, health status and funct ional performance Outcome: Completed Date Met: 09/16/10 Goal met. Patient and caregiver verbalized understanding of above information pr ior to dismissal. Patient was discharged to home with home health to follow, per physician's order s, on 09/16/2010 @ 1015. Goal: Absence of Trauma/Injury/Falls Refer to Clinical Practice Guideline Outcome: Completed Date Met: 09/16/10 Goal met. Pt did not sustain any injuries during his hospitalization. Patient was discharged to home with home health to follow, per physician's order s, on 09/16/2010 @ 1015. DIEM REGISTERED NURSE * Scanned Form - Johnnie Duque Physician - 09/16/2010 11:40 AM PER DIEM REGISTERED NURSE * Care Plan - Patti Taylor - 09/15/2010 3:45 PM PER DIEM REGISTERED NURSE Problem: Functional Deficit (Adult, OB, Pediatric) Goal: Patient-specific goals Patient will participate in individual or group activities per preference while on this unit. Outcome: Ongoing Oliverio Dalton's activities assessment has been completed. Client reports that he likes to listen to music, especially Country, likes to pl ay games on the computer, do word finds, spend time with his dogs and cats, enjo ys community outings and watching TV. Pt has a word search puzzle at bedside. DIEM REGISTERED NURSE documented in this encounter Plan of Treatment Order Schedule Name Type Priority Associated Diag noses Ordered: 09/16/2010 AMB REFERRAL TO HOME CARE Outpatient Routine MRSA (methicillin Referral resistant staph aureus) culture positive Cellulitis documented as of this encounter Procedures Comments Procedure Name Priority Date/Time Associated Diag nosis TELEMETRY REPORT 09/17/2010 12:24 PM PER DIEM REGISTERED NURSE CBC WITH DIFFERENTIAL Routine 09/16/2010 4:30 AM PER DIEM REGISTERED NURSE BASIC METABOLIC PANEL Routine 09/16/2010 4:30 AM PER DIEM REGISTERED NURSE POC GLUCOSE Routine 09/15/2010 8:40 PM PER DIEM REGISTERED NURSE POC GLUCOSE Routine 09/15/2010 4:54 PM PER DIEM REGISTERED NURSE POC GLUCOSE Routine 09/15/2010 12:17 PM PER DIEM REGISTERED NURSE POC GLUCOSE Routine 09/14/2010 8:39 PM PER DIEM REGISTERED NURSE POC GLUCOSE Routine 09/14/2010 4:24 PM PER DIEM REGISTERED NURSE POC GLUCOSE Routine 09/14/2010 12:08 PM PER DIEM REGISTERED NURSE VANCOMYCIN LEVEL TROUGH Routine 09/14/2010 10:55 AM PER DIEM REGISTERED NURSE POC GLUCOSE Routine 09/14/2010 7:17 AM PER DIEM REGISTERED NURSE POC GLUCOSE Routine 09/13/2010 9:16 PM CDT POC GLUCOSE Routine 09/13/2010 3:50 PM CDT documented in this encounter Results * TELEMETRY REPORT (09/17/2010 12:24 PM PER DIEM REGISTERED NURSE) Narrative Performed At This result has an attachment that is n ot available. Procedure Note 09/17/2010 12:24 PM PER DIEM REGISTERED NURSE * BASIC METABOLIC PANEL (09/16/2010 4:30 AM PER DIEM REGISTERED NURSE) GLUCOSE 103 (H) 70 - 100 mg/dl [facility] BUN 21.0 (H) 7 - 20 mg/dl [facility] CREATININE 1.16 0.8 - 1.3 mg/dl [facility] BUN/CREAT RATIO 18.1 10 - 20 [facility] GFR 68 >60 ml/min [facility] [place] [facility] SODIUM 133 (L) 135 - 145 mmol/L [facility] POTASSIUM 4.5 3.3 - 4.8 mmol/L [facility] [facility] CHLORIDE 100 98 - 107 mmol/L [facility] [facility] CO2 30.2 22 - 31 mmol/L [facility] [facility] ANION GAP 7 4 - 20 [facility] CALCIUM 8.7Comment: [facility] 8.5 - 10.1 mg/dl [facility] ACCT#[id number], ,,,, [facility] [facility] Specimen Blood specimen (specimen) Performing Organization Address City/State/Zipcode Ph one Number [facility] CLIA# [id number] [place] [address] - [place] [address] [facility] CLIA# [id number] [place] [address] [facility] [address] [place] [address] * CBC WITH DIFFERENTIAL (09/16/2010 4:30 AM PER DIEM REGISTERED NURSE) WBC 6.50 3.0 - 10.4 x10E3 [facility] [facility] RBC 4.12 (L) 4.15 - 5.75 x10E6 [facility] [place] [facility] HEMOGLOBIN 12.7 (L) 13.8 - 17.4 g/dL [facility] [place] [facility] HEMATOCRIT 35.5 (L) 38.6 - 49.4 % [facility] [place] [facility] MCV 86.1 79 - 100 fL [facility] [facility] MCH 30.8 28 - 34 pg [facility] [facility] MCHC 35.7 (H) 32 - 35 g/dL [facility] [place] [facility] RDW 14.1 12.1 - 14.1 % [facility] PLATELETS 281 148 - 408 x10E3 [facility] [place] [facility] MPV 6.7 (L) 7.4 - 10.6 fL [facility] NEUTROPHILS 57.9 43 - 73 % [facility] [facility] LYMPHOCYTES 30.5 19 - 47 % [facility] MONOCYTES 6.2 3 - 9 % [facility] EOSINOPHILS 5.0 0 - 6 % [facility] BASOPHILS 0.4 0 - 1.2 % [facility] [facility] NEUTROPHIL 3.76 1.3 - 7.6 x10E3 [facility] LYMPHOCYTE 1.98 0.6 - 4.9 x10E3 [facility] MONOCYTE 0.40 0.1 - 0.9 x10E3 [facility] [facility] EOSINOPHIL 0.33 (H) 0.0 - 0.2 x10E3 [facility] BASOPHILS 0.02Comment: [facility] [place] 0 - 0.1 x10E3 [facility] ACCT#[id number], ,,,, [facility] Specimen Blood specimen (specimen) Performing Organization Address [facility] one [facility] CLIA# [id number] [place] [address] [address] CLIA# [id number] [place] [address] [facility] [address] [place] [address] * POC GLUCOSE (09/15/2010 8:40 PM PER DIEM REGISTERED NURSE) POC GLUCOSE 172 (H) 70 - 110 mg/dl [facility] Comment: [facility] ACCT#[id number], ,,,, [place], Point of Care [facility],,,, POC GLUCOSE 172 (H) 70 - 110 mg/dl [facility] Specimen Capillary blood specimen (specimen) Performing Organization Address City/[facility] Ph one Number [facility] CLIA# [id number] [place], [place] [address] [address] CLIA# [id number] [facility] [place] [address] * POC GLUCOSE (09/15/2010 4:54 PM PER DIEM REGISTERED NURSE) POC GLUCOSE 178 (H)Comment: [facility] 70 - 110 mg/dl [facility], Point of Care [facility],,,, [facility] POC GLUCOSE 178 (H) 70 - 110 mg/dl [facility] Specimen Performing Organization Address City/[facility] Ph one Number [facility] CLIA# [id number] MARIUSZ JEFFERSON [address] - [facility] [address] [place] [address] [place] CLIA# [id number] [place] [address] [facility] [address] [place] [address] * POC GLUCOSE (09/15/2010 12:17 PM PER DIEM REGISTERED NURSE) POC GLUCOSE 221 (H)Comment: [facility] [place] 70 - 110 mg/dl [facility] [place], Point of Care [facility],,,, [facility] POC GLUCOSE 221 (H) 70 - 110 mg/dl [facility] Specimen Performing Organization Address City/[facility] one [facility] CLIA# [id number] MARIUSZ JEFFERSON [phone] - [address] [place] CLIA# [id number] [place] [address] [facility] [address] [place] [address] * POC GLUCOSE (09/14/2010 8:39 PM PER DIEM REGISTERED NURSE) POC GLUCOSE 222 (H)Comment: [facility] [place] 70 - 110 mg/dl [facility] LORI [facility] Mariusz, Point of Care [facility],,,, [facility] POC GLUCOSE 222 (H) 70 - 110 mg/dl [facility] Specimen Capillary blood specimen (specimen) Performing Organization Address City/[facility] Ph one Number [facility] CLIA# [id number] MARIUSZ JEFF[place] [address] - [facility] [address] [place] [address] [place] CLIA# [id number] [place] [address] [facility] [address] [place] [address] * POC GLUCOSE (09/14/2010 4:24 PM PER DIEM REGISTERED NURSE) POC GLUCOSE 234 (H)Comment: [facility], [place] 70 - 110 mg/dl [facility] Mariusz, Point of Care [facility],,,, [facility] POC GLUCOSE 234 (H) 70 - 110 mg/dl [facility] Specimen Capillary blood specimen (specimen) Performing Organization Address City/[facility] one Number [facility] CLIA# [id number] MARIUSZ JEFFERSON [address] - [facility] [address] [place] [address] [place] CLIA# [id number] [place] [address] [facility] [address] [place] [address] * POC GLUCOSE (09/14/2010 12:08 PM PER DIEM REGISTERED NURSE) POC GLUCOSE 118 (H)Comment: [place], [place] 70 - 110 mg/dl [facility], Point of Care [facility],,,, [facility] POC GLUCOSE 118 (H) 70 - 110 mg/dl [facility] Specimen Performing Organization Address [facility] one [facility] CLIA# [id number] MARIUSZ JEFFERSON - [facility] [address] [place] [address] CLIA# [id number] [place] JE[place] [address] [facility] [address] [place] [address] * VANCOMYCIN LEVEL TROUGH (09/14/2010 10:55 AM PER DIEM REGISTERED NURSE) VANCOMYCIN, 13.6Comment: [facility] 10 - 20 ug/ml [facility] TROUGH ACCT#[id number], ,,,, [facility] Specimen Blood specimen (specimen) Performing Organization Address [facility] one Number [facility] CLIA# [id number] MARIUSZ JEFFERSON [address] [facility] [address] [place] [address] CLIA# [id number] Leon[place] JEFF[place] [address] [facility] [address] [address] * POC GLUCOSE (09/14/2010 7:17 AM PER DIEM REGISTERED NURSE) POC GLUCOSE 135 (H)Comment: [facility], [place] - 110 mg/dl [facility] Bahman Mariusz, Point of Care [facility],,,, [facility] POC GLUCOSE 135 (H) 70 - 110 mg/dl [facility] Specimen Capillary blood specimen (specimen) Performing Organization Address [facility] one [facility] LABORATORY SERVICES CLIA# [id number] MARIUSZ JEFFERSON 667 - [facility] [address] [place] [address] [place] CLIA# [id number] Leonides JEFFERSON [address] [facility] [address] [place] [address] * POC GLUCOSE (09/13/2010 9:16 PM CDT) POC GLUCOSE 162 (H)Comment: [place], [place] - 110 mg/dl [facility] Bahman Ut, Point of Care [facility],,,, [facility] POC GLUCOSE 162 (H) 70 - 110 mg/dl [facility] Specimen Capillary blood specimen (specimen) Performing Organization Address City/[facility] Cent[facility] Ph one Number [facility] CLIA# [id number] MARIUSZ JEFFERSON 667 - [facility] [address] [place] [address] [place] CLIA# [id number] Leonides JEFFERSON [address] [facility] [address] [place] [address] * POC GLUCOSE (09/13/2010 3:50 PM CDT) POC GLUCOSE 197 (H)Comment: [facility], [place] - 110 mg/dl [facility] Bahman Ut, Point of Care [facility],,,, [facility] POC GLUCOSE 197 (H) 70 - 110 mg/dl [facility] Specimen Capillary blood specimen (specimen) Performing Organization Address City/State/[facility] Centerc[facility] Ph one Number [facility] LABORATORY SERVICES CLIA# [id number] MARIUSZ JEFFERSON 667 - [facility] [address] [place] [address] [place] CLIA# [id number] Leonides JEFFERSON [address] [facility] [address] [place] [address] documented in this encounter Visit Diagnoses Diagnosis MRSA (methicillin resistant staph aureu s) culture positive - Primary Carrier or suspected carrier of Methici llin resistant Staphylococcus aureus Cellulitis Cellulitis and abscess of unspecified s ite documented in this encounter Administered Medications Action Date Dose Rate Site Medication Order MAR Action 09/16/2010 8:44 AM PER DIEM REGISTERED NURSE 81 mg aspirin (ECOTRIN EC) tablet 81 mg Given 81 mg, Oral, DAILY, First dose on 09/14/10 at 0800, Until Discontinued, Routine 81 mg Given 09/15/2010 8:07 AM PER DIEM REGISTERED NURSE 81 mg Given 09/14/2010 8:35 AM PER DIEM REGISTERED NURSE 09/16/2010 8:46 AM PER DIEM REGISTERED NURSE 25 mg bethanechol (URECHOLINE) tablet 25 mg Given 25 mg, Oral, FOUR TIMES DAILY, First dose on 09/13/10 at 1300, Until Discontinued, Routine 25 mg Given 09/15/2010 8:33 PM PER DIEM REGISTERED NURSE 25 mg Given 09/15/2010 4:52 PM PER DIEM REGISTERED NURSE 09/16/2010 8:45 AM PER DIEM REGISTERED NURSE 10 mg cetirizine (ZYRTEC) tablet 10 mg Given 10 mg, Oral, DAILY, First dose on 09/14/10 at 0900, Until Discontinued, Routine 10 mg Given 09/15/2010 8:07 AM PER DIEM REGISTERED NURSE 10 mg Given 09/14/2010 8:35 AM PER DIEM REGISTERED NURSE 09/15/2010 3:09 PM PER DIEM REGISTERED NURSE 75 mg clopidogrel (PLAVIX) tablet 75 mg Given 75 mg, Oral, DAILY, First dose on 09/13/10 at 1500, Until Discontinued, Routine 75 mg Given 09/14/2010 4:21 PM PER DIEM REGISTERED NURSE 75 mg Given 09/13/2010 2:29 PM CDT 09/15/2010 3:10 PM PER DIEM REGISTERED NURSE 40 mg Abdomen, Left Upper Quadrant enoxaparin (LOVENOX) injection 40 mg Given 40 mg, subCUT, DAILY, First dose on 09/13/10 at 1600, Until Discontinued, Routine 40 mg Abdomen, Right Upper Quadrant Given 09/14/2010 4:22 PM PER DIEM REGISTERED NURSE 40 mg Abdomen, Left Upper Quadrant Given 09/13/2010 3:51 PM CDT 09/15/2010 8:33 PM PER DIEM REGISTERED NURSE 10 mg ezetimibe (ZETIA) tablet 10 mg Given 10 mg, Oral, DAILY AT BEDTIME, First dose on 09/13/10 at 2100, Until Discontinued, Routine 10 mg Given 09/14/2010 8:34 PM PER DIEM REGISTERED NURSE 10 mg Given 09/13/2010 9:13 PM CDT 09/15/2010 4:52 PM PER DIEM REGISTERED NURSE 145 mg fenofibrate nanocrystallized (TRICOR) Given tablet 145 mg 145 mg, Oral, DAILY WITH SUPPER, First dose on 09/13/10 at 1700, Until Discontinued, Routine 145 mg Given 09/14/2010 4:22 PM PER DIEM REGISTERED NURSE 145 mg Given 09/13/2010 5:09 PM CDT 09/16/2010 8:44 AM PER DIEM REGISTERED NURSE 40 mg FLUoxetine (PROZAC) capsule 40 mg Given 40 mg, Oral, DAILY, First dose on 09/14/10 at 0900, Until Discontinued, Routine 40 mg Given 09/15/2010 8:07 AM PER DIEM REGISTERED NURSE 40 mg Given 09/14/2010 8:35 AM PER DIEM REGISTERED NURSE 09/16/2010 8:47 AM PER DIEM REGISTERED NURSE 2 Sprays fluticasone (FLONASE) 50 mcg/spray nasal Given inhaler 2 [place] 2 [place], Both Nostrils, DAILY, First dose on 09/14/10 at 0900, Until Discontinued, Routine 2 Sprays Given 09/15/2010 8:07 AM PER DIEM REGISTERED NURSE 2 Sprays Given 09/14/2010 8:36 AM PER DIEM REGISTERED NURSE 09/14/2010 8:35 PM PER DIEM REGISTERED NURSE 600 mg ibuprofen (MOTRIN) tablet 600 mg Given 600 mg, Oral, EVERY 8 HOURS PRN, Starting 09/13/10 at 1258, Until Wed09/16/10 at 1421, Pain, Routine 600 mg Given 09/13/2010 5:09 PM CDT 09/15/2010 8:35 PM PER DIEM REGISTERED NURSE 20 Units Arm, Rig ht Upper insulin glargine (LANTUS) 100 unit/mL Given injection 20 Units 20 Units, subCUT, DAILY AT BEDTIME, First dose on 09/13/10 at 2100, Unti l Discontinued, Routine 20 Units Abdominal Tissue Given 09/14/2010 8:40 PM PER DIEM REGISTERED NURSE 20 Units Arm, Right Upper Given 09/13/2010 9:14 PM CDT 09/16/2010 8:44 AM PER DIEM REGISTERED NURSE 60 mg isosorbide mononitrate SR 24 hour Given (IMDUR) tablet 60 mg 60 mg, Oral, TWO TIMES DAILY, First dos e on 09/13/10 at 2100, Until Discontinued, Routine 60 mg Given 09/15/2010 8:32 PM PER DIEM REGISTERED NURSE 60 mg Given 09/15/2010 8:07 AM PER DIEM REGISTERED NURSE 09/16/2010 8:45 AM PER DIEM REGISTERED NURSE 1 mg LORazepam (ATIVAN) tablet 1 mg Given 1 mg, Oral, TWO TIMES DAILY, First dose on 09/13/10 at 2100, Until Discontinued, Routine 1 mg Given 09/15/2010 8:32 PM PER DIEM REGISTERED NURSE 1 mg Given 09/15/2010 8:06 AM PER DIEM REGISTERED NURSE 09/14/2010 8:34 PM PER DIEM REGISTERED NURSE 30 mL magnesium hydroxide (MILK OF MAGNESIA) Given oral suspension 30 mL 30 mL, Oral, DAILY PRN, Starting Wed09/13/10 at 1258, Until Wed09/16/10 at 1421, Constipation, Routine 09/16/2010 8:45 AM PER DIEM REGISTERED NURSE 400 mg magnesium oxide (MAG-OX) tablet 400 mg Given 400 mg, Oral, TWO TIMES DAILY, First dose on Wed09/13/10 at 2100, Until Discontinued, Routine 400 mg Given 09/15/2010 8:33 PM PER DIEM REGISTERED NURSE 400 mg Given 09/15/2010 8:06 AM PER DIEM REGISTERED NURSE 09/15/2010 12:17 PM PER DIEM REGISTERED NURSE 1 Tablet multivitamin,rx-awjj-mg-min (THERA-M) Given tablet 1 Tab 1 Tablet, Oral, DAILY, First dose on t 09/13/10 at 1300, Until Discontinued, Routine 1 Tablet Given 09/14/2010 12:08 PM PER DIEM REGISTERED NURSE 09/14/2010 9:13 PM PER DIEM REGISTERED NURSE 0.4 mg nitroglycerin (NITROSTAT) tablet 0.4 mg Given 0.4 mg, Sublingual, EVERY 5 MINUTES PRN , Starting Wed09/13/10 at 1258, Until Wed09/16/10 at 1421, Chest Pain, Routine 0.4 mg Given 09/14/2010 9:08 PM PER DIEM REGISTERED NURSE 09/16/2010 8:43 AM PER DIEM REGISTERED NURSE 1 Tablet oxyCODONE-acetaminophen (PERCOCET) 5-325 Given mg per tablet 1 Tab 1 Tablet, Oral, EVERY 4 HOURS PRN, Starting Wed09/13/10 at 1258, Until Wed09/16/10 at 1421, Pain, Moderate, For Pain Scale 4-6, Routine 1 Tablet Given 09/16/2010 3:47 AM PER DIEM REGISTERED NURSE 1 Tablet Given 09/15/2010 3:09 PM PER DIEM REGISTERED NURSE 09/16/2010 8:46 AM PER DIEM REGISTERED NURSE 40 mg pantoprazole (PROTONIX) tablet 40 mg Given 40 mg, Oral, DAILY, First dose on 09/14/10 at 0730, Until Discontinued, Routine 40 mg Given 09/15/2010 8:07 AM PER DIEM REGISTERED NURSE 40 mg Given 09/14/2010 8:35 AM PER DIEM REGISTERED NURSE 09/16/2010 8:45 AM PER DIEM REGISTERED NURSE 200 mg phenytoin sodium extended release Given (DILANTIN) capsule 200 mg 200 mg, Oral, TWO TIMES DAILY, First dose on Wed09/13/10 at 2100, Until Discontinued, Routine 200 mg Given 09/15/2010 8:32 PM PER DIEM REGISTERED NURSE 200 mg Given 09/15/2010 8:06 AM PER DIEM REGISTERED NURSE 09/15/2010 3:09 PM PER DIEM REGISTERED NURSE 30 mg pioglitazone (ACTOS) tablet 30 mg Given 30 mg, Oral, DAILY, First dose on Wed09/13/10 at 1500, Until Discontinued, Routine 30 mg Given 09/14/2010 4:22 PM PER DIEM REGISTERED NURSE 30 mg Given 09/13/2010 2:29 PM CDT 09/15/2010 12:17 PM PER DIEM REGISTERED NURSE 10 mg ramipril (ALTACE) capsule 10 mg Given 10 mg, Oral, DAILY, First dose on Wed09/13/10 at 1300, Until Discontinued, Routine 10 mg Given 09/14/2010 12:08 PM PER DIEM REGISTERED NURSE 09/16/2010 8:45 AM PER DIEM REGISTERED NURSE 300 mg rifampin (RIFADINE) capsule 300 mg Given 300 mg, Oral, EVERY 12 HOURS (BlD), First dose on Wed09/15/10 at 0900, Unti l Discontinued, Routine 300 mg Given 09/15/2010 8:33 PM PER DIEM REGISTERED NURSE 300 mg Given 09/15/2010 8:56 AM PER DIEM REGISTERED NURSE 09/15/2010 8:32 PM PER DIEM REGISTERED NURSE 80 mg simvastatin (ZOCOR) tablet 80 mg Given 80 mg, Oral, DAILY AT BEDTIME, First dose on Wed09/13/10 at 2100, Until Discontinued, Routine 80 mg Given 09/14/2010 8:35 PM PER DIEM REGISTERED NURSE 80 mg Given 09/13/2010 9:13 PM CDT 09/16/2010 8:45 AM PER DIEM REGISTERED NURSE 3 mL sodium chloride 0.9 % flush injection 3 Given mL 3 mL, IV, TWO TIMES DAILY, First dose o n 09/13/10 at 2100, Until Discontinued , Routine 3 mL Given 09/15/2010 8:34 PM PER DIEM REGISTERED NURSE 3 mL Given 09/15/2010 8:08 AM PER DIEM REGISTERED NURSE 09/14/2010 12:07 AM CDT 3 mL sodium chloride 0.9 % flush injection 3 Given mL 3 mL, IV, SEE ADMIN INSTRUCTIONS, Starting Wed09/13/10 at 1258, Until Wed09/16/10 at 1421, Routine 09/15/2010 5:58 PM PER DIEM REGISTERED NURSE 0.4 mg tamsulosin (FLOMAX) capsule 0.4 mg Given 0.4 mg, Oral, DAILY, First dose on Wed09/13/10 at 1800, Until Discontinued, Routine 0.4 mg Given 09/14/2010 7:10 PM PER DIEM REGISTERED NURSE 0.4 mg Given 09/13/2010 5:09 PM CDT 09/16/2010 8:48 AM PER DIEM REGISTERED NURSE 1 Drop timolol (TIMOPTIC) 0.5 % ophthalmic Given solution 1 Drop 1 Drop, Both Eyes, TWO TIMES DAILY, First dose on 09/13/10 at 2100, Unti l Discontinued, Routine 1 Drop Given 09/15/2010 8:35 PM PER DIEM REGISTERED NURSE 1 Drop Given 09/15/2010 8:07 AM PER DIEM REGISTERED NURSE 09/16/2010 8:46 AM PER DIEM REGISTERED NURSE 1 Tablet trimethoprim-sulfamethoxazole (BACTRIM Given DS) 800-160 mg per tablet 1 Tab 1 Tablet, Oral, EVERY 12 HOURS (BlD), First dose on Wed09/15/10 at 0900, Unti l Discontinued, Routine 1 Tablet Given 09/15/2010 8:33 PM PER DIEM REGISTERED NURSE 1 Tablet Given 09/15/2010 8:56 AM PER DIEM REGISTERED NURSE 09/14/2010 12:06 AM CDT 1,000 mg 222.9 mL/hr vancomycin (VANCOCIN) 1,000 mg in sodium Given chloride 0.9 % 250 mL IVPB 1,000 mg, IV, EVERY 12 HOURS (BlD), First dose on 09/14/10 at 0000, Unti l Discontinued, Routine 09/15/2010 12:19 AM PER DIEM REGISTERED NURSE 1,250 mg 250 mL/hr vancomycin (VANCOCIN) 1,250 mg in sodium Given chloride 0.9 % 250 mL IVPB 1,250 mg, IV, EVERY 12 HOURS (BlD), First dose on 09/14/10 at 1200, Unti l Discontinued, Routine 1,250 mg 250 mL/hr Given 09/14/2010 12:08 PM PER DIEM REGISTERED NURSE 09/15/2010 12:19 PM PER DIEM REGISTERED NURSE 1,250 mg 250 mL/hr vancomycin (VANCOCIN) 1,250 mg in sodium Given chloride 0.9 % 250 mL IVPB 1,250 mg, IV, EVERY 12 HOURS (BlD), 1 dose, First dose (after last modification) on Wed09/15/10 at 1200, Routine 09/15/2010 8:33 PM PER DIEM REGISTERED NURSE 10 mg zolpidem (AMBIEN) tablet 10 mg Given 10 mg, Oral, NIGHTLY PRN, Starting 09/13/10 at 1258, Until Wed09/16/10 at 1421, Insomnia, Routine 10 mg Given 09/14/2010 9:19 PM PER DIEM REGISTERED NURSE 10 mg Given 09/13/2010 9:18 PM CDT documented in this encounter
--- OUTSIDE RECORDS SUMMARY | 2020-03-24 14:40 | XMS REPORT | Encounter Summary ---
Author Author [facility] Organization [facility] Address Unknown Phone Unavailable Care Team Providers Care Property Claims Manager Name Role Phone Shahram Mccallum MD PCP Unavailable Reason for Visit * Reason Comments Medication Refill Encounter Details Care Team Description Date Type Department Shahram Mccallum MD NO ADDRESS ON FILE 10/22/2010 Refill [facility] Primar y Care [address] [phone] Social History Date Tobacco Use Types Packs/Day [...]
--- OUTSIDE RECORDS SUMMARY | 2020-03-24 14:40 | XMS REPORT | Encounter Summary ---
Author Author [facility] Organization [facility] Address Unknown Phone Unavailable Care Team Providers Care Hot Molder Name Role Phone Shahram Mccallum MD PCP Unavailable Reason for Visit * Reason Comments Medication Refill Encounter Details Care Team Description Date Type Department Shahram Mccallum MD NO ADDRESS ON FILE 09/24/[address] [facility] Primar y Care [address] [phone] Social History Date Tobacco Use Types Packs/Day [...]
--- OUTSIDE RECORDS SUMMARY | 2020-03-24 14:40 | XMS REPORT | Encounter Summary ---
Author Author [facility] Organization [facility] Address Unknown Phone Unavailable Care Team Providers Care Cooker Casing Name Role Phone Shahram Mccallum MD PCP Unavailable Encounter Details Care Team Description Date Type Department Shahram Mccallum MD NO ADDRESS ON FILE [facility], Lab Schedule 11/24/2010 [facility] General Encounter Laboratory Services [address] [phone] Social History Date Tobacco Use [...] Drop in both eyes 2 times daily. 10/22/2010 12/03/2010 zolpidem (AMBIEN) 10 mg Take 1 Tab [...] Priority Date/Time Associated Diag nosis MICROALBUMIN/CREATININE Routine 11/24/2010 DM w/o complication type RATIO, RANDOM UR 7:37 AM DIRECTOR WHOLESALE I CBC WITH DIFFERENTIAL Routine 11/24/2010 Other co nvulsions 7:37 AM DIRECTOR WHOLESALE HEMOGLOBIN A1C Routine 11/24/2010 DM w/o complica tion type 7:33 AM DIRECTOR WHOLESALE I PHENYTOIN LEVEL, TOTAL Routine 11/24/2010 Other c onvulsions 7:33 AM DIRECTOR WHOLESALE LIPID PANEL Routine 11/24/2010 Hyperlipidemia 7:33 AM DIRECTOR WHOLESALE COMPREHENSIVE METABOLIC Routine 11/24/2010 Hyperl ipidemia PANEL 7:33 AM DIRECTOR WHOLESALE documented in this encounter Results * MICROALBUMIN/CREATININE RATIO, RANDOM UR (11/24/2010 7:37 AM DIRECTOR WHOLESALE) MICROALBUMIN, 17.7 mg/L [facility] Creatinine, 72 40 - 278 mg/dl [facility] LAB MICROALBUMIN/CR 24.5 <30 ug/mg [facility] EAT RATIO, UR Comment: [facility] UNITS OF MEASURE: ug/mg [place] [facility] Creatinine THE [employer] DEFINES ABNORMALITIES IN ALBUMIN EXCRETION FOLLOWS: CATEGORY RESULT (ug/mg Creatinine) NORMAL < 30 MICROALBUMINURIA 30 - 299 CLINICAL ALBUMINURIA > OR = 300 THE ADA RECOMMENDS THAT AT LEAST TWO OF THREE SPECIMENS COLLECTED WITHIN A 3-6 MONTH PERIOD BE ABNORMAL BEFORE CONSIDERING A PATIENT TO BE WITHIN A DIAGNOSTIC CATEGORY. GAB JUAN ACCT#[id number], ,,,, Specimen Urine specimen (specimen) Performing Organization Address City/State/Zipcode Ph one Number [facility] LABORATORY SERVICES CLIA# [id number] GAB JEFFERSON 667 [address] - [place] 401 [facility] CLIA# [id number] [place] Leonides S [address] [facility] 401 [facility] * CBC WITH DIFFERENTIAL (11/24/2010 7:37 AM DIRECTOR WHOLESALE) WBC 5.98 3.0 - 10.4 x10E3 [facility] RBC 4.75 4.15 - 5.75 x10E6 [facility] HEMOGLOBIN 14.0 13.8 - 17.4 g/dL [facility] HEMATOCRIT 40.5 38.6 - 49.4 % [facility] MCV 85.3 79 - 100 fL [facility] MCH 29.4 28 - 34 pg [facility] MCHC 34.5 32 - 35 g/dL [facility] RDW 13.7 12.1 - 14.1 % [facility] PLATELETS 284 148 - 408 x10E3 [facility] MPV 6.9 (L) 7.4 - 10.6 fL [facility] NEUTROPHILS 67.5 43 - 73 % [facility] [place] LYMPHOCYTES 23.9 19 - 47 % [facility] [place] MONOCYTES 6.3 3 - 9 % [facility] [place] [facility] EOSINOPHILS 2.0 0 - 6 % [facility] [place] BASOPHILS 0.3 0 - 1.2 % [facility] [place] NEUTROPHIL 4.04 1.3 - 7.6 x10E3 [facility] [place] [facility] LYMPHOCYTE 1.43 0.6 - 4.9 x10E3 [facility] MONOCYTE 0.38 0.1 - 0.9 x10E3 [facility] EOSINOPHIL 0.12 0.0 - 0.2 x10E3 [facility] BASOPHILS 0.02Comment: [facility]ITAL[facility]is[facility] LYNN 0 - 0.1 x10E3 [facility] ACCT#[id number], ,,,, CENTER [place] [facility] Specimen Blood specimen (specimen) Performing Organization Address City/State/Zipcode Ph one Number [facility]OR[facility]ORY [facility] CLIA# [id number] GAB JEFF[place] [address] - [place] 401 [facility] CLIA# [id number] Leonides JE[place] S [address] [facility] [address] [place] [address] * PHENYTOIN LEVEL, TOTAL (11/24/2010 7:33 AM DIRECTOR WHOLESALE) [facility] PHENYTOIN TOTAL 21.0 (H)Comment: 10 - 20 ug/ml [facility][NOTE 3]GAB PACE [facility] ACCT#[id number], ,,,, [facility] Specimen Blood specimen (specimen) Performing Organization Address City/State/Zipcode Ph one Number [facility] CLIA# [id number] GAB JEFFERSON [address] - [place] [address] [place] [address] CLIA# [id number] Leonides JEFFERSON S [address] [facility] [address] [place] [address] * LIPID PANEL (11/24/2010 7:33 AM DIRECTOR WHOLESALE) [facility] CHOLESTEROL 215 (H) 140 - 200 mg/dl [facility] TRIGLYCERIDE 280 (H) 0 - 199 mg/dl [facility] Comment: [facility] REFERENCE RANGE - [facility] TRIGLYCERIDES NORMAL LESS THAN 150 mg/dl BORDERLINE HIGH 150 - 199 mg/dl HIGH 200 - 499 mg/dl VERY HIGH GREATER THAN OR = 500 mg/dl HDL 46 27 - 67 mg/dl [facility] LDL 124 <130 mg/dl [facility] CHOLESTEROL, Comment: [facility] DIRECT [facility] RISK CATEGORY LDL GOAL High risk: <100 mg/dl CHD or CHD risk equivalents (optional goal: <70 mg/dl) (10-year risk > 20%) Moderately high risk <130 mg/dl 2+ risk factors (10-year risk 10% to 20%) Moderate risk: <130 mg/dl 2+ risk factors (10-year risk < 10%) Lower risk: <160 mg/dl 0-1 risk factor [facility] ACCT#[id number], ,,,, Specimen Blood specimen (specimen) Performing Organization Address [facility] LABORATORY SERVICES CLIA# [id number] GAB JEFFERSON [address] [address]# [id number] Leonides JEFFERSON [address] * HEMOGLOBIN A1C (11/24/2010 7:33 AM DIRECTOR WHOLESALE) HEMOGLOBIN A1C 6.8 (H) 0 - 6.0 % [facility] [place] [facility] GLUCOSE, MEAN 148Comment: [facility] SANCHEZ mg/dl [facility] BLOOD ACCT#[id number], ,,,, CENTER [place] [facility] Specimen Blood specimen (specimen) Performing Organization Address [facility] LABORATORY SERVICES CLIA# [id number] GAB JE[place] [address] - [place] [address] [place], [place] [address]IA# [id number] Leonides JEFFERSON [address] [facility] [address] [place] [address] * COMPREHENSIVE METABOLIC PANEL (11/24/2010 7:33 AM DIRECTOR WHOLESALE) GLUCOSE 134 (H) 70 - 100 mg/dl [facility] BUN 28.0 (H) 7 - 20 mg/dl [facility] CREATININE 0.98 0.8 - 1.3 mg/dl [facility] BUN/CREAT RATIO 28.6 (H) 10 - 20 [facility] [place] [facility] GFR 83 >60 ml/min [facility] SODIUM 140 135 - 145 mmol/L [facility] [place] [facility] POTASSIUM 4.2 3.3 - 4.8 mmol/L [facility] CHLORIDE 106 98 - 107 mmol/L [facility] [place] [facility] CO2 25.9 22 - 31 mmol/L [facility] [place] [facility] ANION GAP 12 4 - 20 [facility] [place] [facility] CALCIUM 8.8 8.5 - 10.1 mg/dl [facility] ALBUMIN 4.1 3.4 - 5.0 g/dl [facility] TOTAL PROTEIN 7.0 6.4 - 8.2 g/dl [facility] [place] [facility] GLOBULIN (CALC) 2.9 [facility] [place] [facility] ALBUMIN/GLOBULI 1.4 [facility] BILIRUBIN TOTAL 0.3 <1.1 mg/dl [facility] [place] [facility] ALKALINE 56 50 - 136 IU/L [facility] PHOSPHATASE [place] [facility] AST 22 10 - 40 IU/L [facility] ALT 31Comment: [facility] L[facility]NN 25 - 70 IU/L [facility] ACCT#[id number], ,,,, CENTER [place] [facility] Specimen Blood specimen (specimen) Performing Organization Address City/State/Zipcode Ph one Number [facility] CLIA# [id number] GAB JEFF[place] [address] - [place] [address] [place] [address] [place] HOL[place]IA# [id number] Leonides JEFFERSON [address] [facility] [address] documented in this encounter Visit Diagnoses Diagnosis Other convulsions Hyperlipidemia Other and unspecified hyperlipidemia 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
--- OUTSIDE RECORDS SUMMARY | 2020-03-24 14:41 | XMS REPORT | Encounter Summary ---
Author Author [facility] Organization [facility] Address Unknown Phone Unavailable Care Team Providers Care Planner Name Role Phone Shahram Mccallum MD PCP Unavailable Reason for Visit * Reason Comments Medication Refill Encounter Details Care Team Description Date Type Department Shahram Mccallum MD NO ADDRESS ON FILE 07/03/2010 Refill [facility] Primar y Care [address] [phone] Social History Date Tobacco Use Types Packs/Day Years Used Quit: 03/08/1995 Former Smoker Drinks/Week oz/Week Comments Alcohol Use No [...]
--- OUTSIDE RECORDS SUMMARY | 2020-03-24 14:41 | XMS REPORT | Encounter Summary ---
Author Author [facility] Organization [facility] Address Unknown Phone Unavailable Care Team Providers Care Transplant Rn Name Role Phone Shahram Mccallum MD PCP Unavailable Reason for Visit * Reason Comments Medication Refill Encounter Details Care Team Description Date Type Department Shahram Mccallum MD NO ADDRESS ON FILE 06/04/2010 Refill [facility] Primar y Care [address] [phone] Social History Date Tobacco Use Types Packs/Day [...]
--- OUTSIDE RECORDS SUMMARY | 2020-03-24 14:41 | XMS REPORT | Encounter Summary ---
Author Author [facility] Organization [facility] Address Unknown Phone Unavailable Care Team Providers Care Garage Laborer Name Role Phone Shahram Mccallum MD PCP Unavailable Reason for Visit * Reason Comments Medication Refill Encounter Details Care Team Description Date Type Department Shahram Mccallum MD NO ADDRESS ON FILE 05/07/2010 Refill [facility] Primar y Care [address] [phone] Social History Date Tobacco Use Types Packs/Day [...]
--- OUTSIDE RECORDS SUMMARY | 2020-03-24 14:41 | XMS REPORT | Encounter Summary ---
Author Author [facility] Organization [facility] Address Unknown Phone Unavailable Care Team Providers Care Tool Supervisor Name Role Phone Shahram Mccallum MD PCP Unavailable Reason for Visit * Reason Comments Insect Bite ? spider bite to right lowe r leg x 1 week Encounter Details Care Team Description Date Type Department Lora Manning MD NO ADDRESS ON FILE Cellulitis (Primary Dx) 09/10/2010 Office Visit [facility] Primar y Care [address] [place] [address] Social History Date Tobacco Use [...] Reading Time Taken Comments Vital Sign 132/70 09/10/2010 2:03 PM CDT Blood Pressure - - Pulse 36.4 C (97.6 F) 09/10/2010 2:03 PM CDT Temperature - - Respiratory Rate - - Oxygen Saturation - - Inhaled Oxygen Concentration 98.9 kg (218 lb) 09/10/2010 2:03 PM CDT Weight - - Height 35.19 04/21/2010 10:19 AM CDT Body Mass Index documented in this encounter Progress Notes * Lora Manning MD - 09/10/2010 6:32 PM CDT Pt admitted, see H&P documented in this encounter Plan of Treatment Not on filedocumented as of this encounter Visit Diagnoses Diagnosis Cellulitis - Primary Cellulitis and abscess of unspecified s ite documented in this encounter
--- OUTSIDE RECORDS SUMMARY | 2020-03-24 14:41 | XMS REPORT | Encounter Summary ---
Author Author [facility] Organization [facility] Address Unknown Phone Unavailable Care Team Providers Care Change Number Operator Name Role Phone Shahram Mccallum MD PCP Unavailable Reason for Visit * Reason Comments Diabetes lab results Cholesterol Problem Encounter Details Care Team Description Date Type Department Shahram Mccallum MD NO ADDRESS ON FILE DM w/o Complication Type I; Other Convulsions; Chronic Airway Obstruction, not Elsewhere Classified; Cor Athrscl-Uns Vessel; Unspecified Essential Hypertension; Hyperlipidemia; Anemia; Epididymitis without Abscess 05/13/2010 Office Visit [facility] Primar [address] [phone] Social History Date Tobacco Use Types Packs/Day [...] Reading Time Taken Comments Vital Sign 120/60 05/13/2010 9:51 AM CDT Blood Pressure 68 05/13/2010 9:51 AM CDT Pulse - - Temperature - - Respiratory Rate - - Oxygen Saturation - - Inhaled Oxygen Concentration 99.8 kg (220 lb) 05/13/2010 9:51 AM CDT Weight - - Height 35.51 04/21/2010 10:19 AM CDT Body Mass Index documented in this encounter Progress Notes * Shahram Mccallum MD - 05/13/2010 10:17 AM CDT Subjective: Oliverio Dalton is a 59 y.o. male. Patient Active Problem List Diagnoses [...] 229.9ED Personal History of Colonic Polyps V12.72 Current outpatient prescriptions ordered prior to encounter Medication Sig Dispense Refill FLUoxetine (PROZAC) 20 mg Oral capsule Take 2 Caps by mouth daily. 60 Cap 11 phenytoin (PHENYTEK) 200 mg Oral Cap Take 1 Cap by mouth 2 times daily. In t he morning and at bedtime. 60 Cap 5 ramipril (ALTACE) 10 mg Oral capsule Take 10 mg by mouth daily. pioglitazone (ACTOS) 30 mg Oral tablet Take 1 Tab by mouth daily. 30 Tab 1 1 LORazepam (ATIVAN) 1 mg Oral tablet Take 1 Tab by mouth 2 times daily. 60 T ab 2 insulin glargine (LANTUS) 100 unit/mL subCUT Soln Inject by subcutaneous in jection. 20 units at hs. 10 mL 11 zolpidem (AMBIEN) 10 mg Oral tablet Take 1 Tab by mouth nightly as needed fo r Insomnia. ok'd by dr yeh it web development consultant. 30 Tab 2 polyethylene glycol 3350 (MIRALAX) 17 gram/dose Oral Powd Take 1 SCOOP by mo ut daily. Dissolve in 8 ounces of fluid and drink entire liquid 17 Gram 0 loratadine (CLARITIN) 10 mg Oral tablet Take 1 Tab by mouth daily. 30 Tab 11 clopidogrel (PLAVIX) 75 mg Oral Tab Take 1 Tab by mouth daily. 30 Tab 11 bethanechol (URECHOLINE) 25 mg Oral tablet Take 1 Tab by mouth 4 times daily . 120 Tab 5 oxaprozin (DAYPRO) 600 mg Oral tablet Take 1 Tab by mouth daily. 30 Tab 5 tamsulosin SR 24 hour (FLOMAX) 0.4 mg Oral capsule Take 1 Cap by mouth daily . 30 min. After supper 30 Cap 5 nitroglycerin (NITROSTAT) 0.[address] 1 Tab under tongue ev len 5 minutes as needed for Chest Pain. 25 Tab prn isosorbide mononitrate SR 24 hour (IMDUR) 60 mg Oral tablet Take 1 Tab by mo uth 2 times daily. 60 Tab 11 esomeprazole (NEXIUM) 40 mg Oral CpDR Take 1 Cap by mouth daily before break fast. 30 Cap 11 metoprolol succinate ER 24 hour (TOPROL XL) 25 mg Oral tablet Take 1 Tab by mouth daily. 30 Tab 5 magnesium oxide 250 mg Oral Tab [...] bedtime. MULTIVITAMIN PO Take 1 Tab by mouth. Daily at noon AEROBID IN Take 2 Puffs by inhalation [...] Oral Cap Take 10 mg by mouth daily. At noon TYLENOL 325 mg Oral Tab Take 1-2 Tabs by mouth every 4 hours as needed for P ain. Lab Results Component Value Date HEMOGLOBIN A1C 6.7 05/08/2010 HEMOGLOBIN A1C 7.3 02/06/2010 HEMOGLOBIN A1C 6.4 05/09/2009 LDL CALCULATED 0 06/29/2008 LDL CHOLESTEROL, DIRECT 130 05/08/2010 CREATININE 0.93 05/08/2010 Lab Results Component Value Date CHOLESTEROL 225 05/08/2010 CHOLESTEROL 273 02/06/2010 CHOLESTEROL 234 08/16/2009 HDL 48 05/08/2010 HDL 46 02/06/2010 HDL 54 08/16/2009 LDL CALCULATED 0 06/29/2008 LDL CALCULATED 0 04/26/2006 LDL CHOLESTEROL, DIRECT 130 05/08/2010 LDL CHOLESTEROL, DIRECT 148 02/06/2010 LDL CHOLESTEROL, DIRECT 134 08/16/2009 TRIGLYCERIDE 363 05/08/2010 TRIGLYCERIDE 573 02/06/2010 TRIGLYCERIDE 207 08/16/2009 ALT 34 05/08/2010 AST 17 05/08/2010 Lab Results Component Value Date CREATININE 0.93 05/08/2010 BUN 22.0 05/08/2010 SODIUM 139 05/08/2010 POTASSIUM 4.5 05/08/2010 CHLORIDE 104 05/08/2010 CO2 24.1 05/08/2010 GFR 88 05/08/2010 Lab Results Component Value Date ALT 34 05/08/2010 AST 17 05/08/2010 ALKALINE PHOSPHATASE 48 05/08/2010 BILIRUBIN TOTAL 0.2 05/08/2010 HPI: Mr. Dalton complains of the following (by systems): Chest Pain symptoms: none Diabetes Type II complaints: medication compliance: compliant most of the time , diabetic diet compliance: noncompliant some of the time, home glucose monitori ng: fasting values range 100-rarely 200, nonfasting values range ave 180 Hypertension related symtoms/issues: taking medications as instructed, no side effects of medications, no chest pain on exertion, no dyspnea on exertion, no ed lian no lipid related sxs. watching diet Review of Systems: ROS Denies all of the following: Headache Dizziness Chest pain Shortness of breath Bowel changes Bladder changes Pain in muscle or joints No seizuer activity for > 6 weeks[address] Rarely [address] if urgent but advised against until seizure free x 6 mo. Exam/Objective: Normal Exam for Routine Visits: \Blood pressure 120/60, pulse 68, weight 220 lb (99.791 kg). General appearance: chronic disabled appearing, active, alert, cooperative, no d istress, social, normally nourished, and in no acute [...] ASSESSMENT: Encounter Diagnoses Name Primary? 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 Also, he has additional complaints of c/o L testicle pain that is chronic but ac utely increased. Testicle mod tender but no masses and cord sttuctures sl tende r. Prostate sl tender. Will rx with levaquin. Appropriate medications prescribed (see detailed AVS). Appropriate patient instructions provided (see detailed AVS). Follow-up as I have indicated. Medications and options explained to include common side effects. Understanding of medications, course, diagnosis, and expectations were expressed by patient/g uardian. documented in this encounter Plan of Treatment Not on filedocumented as of this encounter Results * MICROALBUMIN/CREATININE RATIO, RANDOM UR (11/24/2010 7:37 AM PRODUCT CONTROLLER) MICROALBUMIN, 17.7 mg/L [facility] Creatinine, 72 40 - 278 mg/dl [facility] MICROALBUMIN/CR 24.5 <30 ug/mg [facility] EAT RATIO, UR Comment: [facility] UNITS OF MEASURE: ug/mg [facility] Creatinine THE [employer] DEFINES ABNORMALITIES IN ALBUMIN EXCRETION FOLLOWS: CATEGORY RESULT (ug/mg Creatinine) NORMAL < 30 MICROALBUMINURIA 30 - 299 CLINICAL ALBUMINURIA > OR = 300 THE ADA RECOMMENDS THAT AT LEAST TWO OF THREE SPECIMENS COLLECTED WITHIN A 3-6 MONTH PERIOD BE ABNORMAL BEFORE CONSIDERING A PATIENT TO BE WITHIN A DIAGNOSTIC CATEGORY. GAB JUAN ACCT#[id number], ,,,, Specimen Urine specimen (specimen) Performing Organization Address City/State/Zipcode Ph one Number [facility] CLIA# [id number] [place] [address] [address] [place] [address] [facility] CLIA# [id number] [place] [address] [facility] [address] documented in this encounter Visit Diagnoses Diagnosis Type I (juvenile type) diabetes mellitu s without mention of complication, not stated as uncontrolled Other convulsions Chronic airway obstruction, not elsewhe re classified Coronary atherosclerosis of unspecified type of vessel, nikolski or graft Unspecified essential hypertension Hyperlipidemia Other and unspecified hyperlipidemia Anemia Anemia, unspecified Epididymitis without abscess Orchitis and epididymitis, unspecified documented in this encounter
--- OUTSIDE RECORDS SUMMARY | 2020-03-24 14:41 | XMS REPORT | Encounter Summary ---
Author Author [facility] Organization [facility] Address Unknown Phone Unavailable Care Team Providers Care Analytical Chemist Name Role Phone Shahram Mccallum MD PCP Unavailable Reason for Visit * Reason Comments Erroneous encounter-disregard Encounter Details Care Team Description Date Type Department Peggy Nikky Gimenezn 09/10/2010 Refill [facility] Primar Care [address] [phone] Social History Date Tobacco Use Types Packs/Day [...]
--- OUTSIDE RECORDS SUMMARY | 2020-03-24 14:41 | XMS REPORT | Encounter Summary ---
Author Author [facility] Organization [facility] Address Unknown Phone Unavailable Care Team Providers Care Bread Baker Name Role Phone Shahram Mccallum MD PCP Unavailable Reason for Visit * Auth/Cert Referred By Contact Referred To Contact Status Reason Specialty Diagnoses / Procedures [facility] [address] [place] [address] Closed Inpatient Diagnoses cellulitis Encounter Details Care Team Description Date Type Department Lora Manning MD NO ADDRESS ON FILE Shahram Mccallum MD NO ADDRESS ON FILE MRSA (methicillin resistant staph aureus ) culture positive 09/10/2010 [facility] - Encounter [facility] 09/13/2010 [address] [place] [address] Social History Date Tobacco Use [...] Signs Reading Time Taken Comments Vital Sign 142/70 09/13/2010 11:00 AM CDT Blood Pressure 73 09/13/2010 11:00 AM CDT Pulse 36.2 C (97.1 F) 09/13/2010 11:00 AM CDT Temperature 18 09/13/2010 11:00 AM CDT Respiratory Rate 98% 09/13/2010 11:00 AM CDT Oxygen Saturation - - Inhaled Oxygen Concentration 99.3 kg (218 lb 14.4 oz) 09/13/2010 5:26 AM CDT Weight 167.6 cm (5' 6") 09/10/2010 3:19 PM CDT Height 35.33 09/10/2010 3:19 PM CDT Body Mass Index documented in this encounter Discharge Summaries * Shahram Mccallum MD - 09/13/2010 2:50 PM CDT [address] [place], [place] [address] DISCHARGE SUMMARY Patient: OLIVERIO TINSLEY Location: [facility] Room#: 112 CSN: [id number] Date of Admission: 09/10/2010 Date of Discharge: DIAGNOSES: 1. Right lower extremity methicillin-resistant staph aureus ulcer cellulitis. 2. Episode of tachycardia. 3. History of arteriosclerotic vascular disease. 4. Diabetes mellitus. 5. Chronic obstructive pulmonary disease. 6. Hypertension. 7. History of seizure disorder. HISTORY: This 60-year-old gentleman admitted through the office after he presen roma with problems of worsening cellulitis, ulceration of the right lower leg. T his is an area with known MRSA. Because of failure to respond to outpatient roxie atment, he was admitted for inpatient care. LABORATORY AND X-RAY DATA: CBC: WBCs on admission were 7.9 and day of dismissa l 5.4. Hemoglobin stable at 12.7. Lab chemistry: Cardiac ISO series was negat humberto for any ischemic injury. Basic chemistries: Sodium is at 132, potassium no rmal 4.0, BUN 22, creatinine 1.0. Glucoses ranged on the fasting panels from 17 0-105. During the evening last night, it was 300. D-dimers are less than 100. ABGs on 09/11/2010: ph 7.46, pCO2 36, pO2 is 106. Vancomycin levels were foll owed sequentially on the chart. Chest x-ray is negative for acute changes. HOSPITAL COURSE/HOSPITALIZATION: The patient was evaluated as above. He was tr eated with IV vancomycin and Wound Care consultation. The wound is starting to stabilize and improve. There is no increase in cellulitis or pain. He has been in contact isolation. At this time, he needs ongoing treatment for this with t he vancomycin and he is being dismissed to a swing bed for that reason. The patient's hospital course was complicated with an episode of weakness, short ness of breath and tachycardia. He was therefore monitored in the Intensive Car e Unit. However, this resolved without evidence of ischemic injury. At the donis e of his dismissal to the swing bed, he will continue Tylenol, albuterol, Ecotri n, Urecholine, Zyrtec, Plavix, Lovenox, Zetia, TriCor, Prozac, Flonase, Motrin, Lantus, Imdur, Ativan, magnesium oxide, p.r.n. nitroglycerin, Percocet, Protonix , Dilantin, Altace, Zocor, Timoptic and the vancomycin which is being adjusted a ccording to levels and by Pharmacy. It is our plan that the patient will contin ue this until we are confident he is stable, then we would anticipate eventual dismissal home on Zyvox. He does need a few more days, however, before this is adequately controlled. Therefore, the dismissed to a swing bed. Dictated by: Shahram Mccallum MD/MEDQ d: 09/13/2010 10:25:42 t: 09/13/2010 14:47:01 Voice job id: [id number] Internal Job id: [id number] * Shahram Mccallum MD - 09/13/2010 10:15 AM CDT This discharge note has been dictated. documented in this encounter Discharge Instructions * Patient Instructions* Johnnie Duque Physician - 09/15/2010 11:26 AM FINAL TOUCH UP PAINTER documented in this encounter Medications at Time [...] Progress Notes * Althea Phipps RN - 09/13/2010 12:35 PM CDT Status changed to swing bed at this time.Pt will remain in this same bed and yovani avendaño #. * Janell Marie RN - 09/12/2010 3:25 PM CDT WOCN to evaluate and treat right mid thigh ulceration with redness and increased warmth. Base with rough brown loose surface. Cleansed with sterile water, 4x4, #11 blade to remove crusty base, pink tissue with small areas of fibrin slough, no drainage expelled. Covered with silver seal and gauze moist with sterile lovely er, dry piece of ABD, surginet to secure, Change MWF and prn. 2 distal dry scabb ed ulcerations with healing ridge noted. These left open to air. Update to Althea POWERS * Diana Oconnor - 09/12/2010 3:05 PM CDT Rec'd call from supervisor boiler repair that patient may be going home Wednesday with IV vanco, but if it is given more than once a day home care can not provide that service a nd since he lives along and has no one teachable in the home this presents a pro blem. If he has to come in for OP IV therapy getting him to the hospital will b e a problem because he lives alone and has no one to take care of him or to driv e him and the home situation may be questionable at this point. If he only has medicare it will not be covered in the home and if he has to come to the [facility] for IV's he will no longer qualify for home care because he will not be home b ound. May need to consider a skilled stay for IV and then home. This repairer typewriter mackenzie s called Dr. Mccallum office and awaiting a call back for more details on dosage and times to be given. If the patient has medicare and medicaid we could get th e meds through [facility], but then that will depend on how many t imes a day he will be taking it and if there is someone teachable in the home to do the treatments. Awaiting Dr. Mccallum nurse to call me back. Kera Kentrell is out for the day. Patti Taylor is out for the day. Left a [employer] for Elvin Feliciano to call this repairer typewriter. * Christi Dalton, PRIYA - 09/12/2010 2:41 PM CDT Golf Sales Manager and Pharmacy made aware of discharge planning for Wednesday with co ntinued outpatient IV vancomycin therapy for several more days. Spoke with Alvina. * Althea Andrews, PHARMACIST - 09/12/2010 10:30 AM CDT Vancomycin trough 20.4 on 09/12 am. Hold x 6 hours then decrease to 1000mg IV q1 2h. Next trough ordered on 09/14 @ 1100. T * Shahram Mccallum MD - 09/12/2010 7:38 AM CDT Admit Date: 09/10/2010 Subjective: Patient Active Hospital Problem List: *MRSA (methicillin resistant staph aureus) culture positive (09/12/2010) DM w/o Complication Type I () Cor Athrscl-Uns Vessel () Unspecified Essential Hypertension () Chronic Airway Obstruction, not Elsewhere Classified () Cellulitis (09/10/2010) Patient has no complaint of chest pain, heaviness, sob. this has resolved since episode yesterday. ? spell started with onset a fib which has resolved. leg h as no increased pain . Objective: Patient Vitals in the past 8 hrs: BP Temp Temp src Resp SpO2 Weight 09/12/10 0601 104/56 mmHg - - 18 99 % - 09/12/10 0501 132/60 mmHg - - 8 99 % - 09/12/10 0402 144/76 mmHg 96 F (35.6 C) Tympanic 16 100 % 219 lb 9.6 oz (99 .61 kg) 09/12/10 0019 111/68 mmHg 96.7 F (35.9 C) Tympanic 16 95 % - Intake/Output Summary (Last 24 hours) at 09/12/10 0738 Last data filed at 09/12/10 0402 Gross per 24 hour Intake 1650 ml Output 950 ml Net 700 ml Results for orders placed during the hospital encounter of 09/10/10 (from the [facility] 24 hour(s)) POC GLUCOSE Component Value Range POC GLUCOSE 205 (*) 70-110 (mg/dl) POC GLUCOSE GRAPH VALUE 205 (*) 70-110 (mg/dl) MYOGLOBIN Component Value Range MYOGLOBIN, PLASMA 29 16-97 (ng/ml) TROPONIN Component Value Range TROPONIN I LESS THAN 0.04 0-0.4 (ng/ml) MYOGLOBIN Component Value Range MYOGLOBIN, PLASMA 37 16-97 (ng/ml) TROPONIN Component Value Range TROPONIN I LESS THAN 0.04 0-0.4 (ng/ml) BLOOD GAS ARTERIAL Component Value Range PH ARTERIAL 7.46 (*) 7.35-7.45 PO2 ARTERIAL 106 (*) 80-100 PCO2 ARTERIAL 36 35-48 HCO3 ARTERIAL 25.6 TCO2, ARTERIAL 26.7 24-28 BASE EXCESS ABG 1.9 O2 SAT EST ARTERIAL 98 (*) 90-97 (%) ALLENS TEST OK PUNC SITE RIGHT RADIAL TROPONIN Component Value Range TROPONIN I LESS THAN 0.04 0-0.4 (ng/ml) D-DIMER Component Value Range D-DIMER QUANT Less than 100 0-400 (ng/mL) CARDIAC INTERPRETATION (6 HR) Component Value Range INTERPRETATION Test not performed TROPONIN Component Value Range TROPONIN I LESS THAN 0.04 0-0.4 (ng/ml) GLUCOSE LEVEL Component Value Range GLUCOSE 121 (*) 70-100 (mg/dl) POC GLUCOSE Component Value Range POC GLUCOSE 133 (*) 70-110 (mg/dl) POC GLUCOSE GRAPH VALUE 133 (*) 70-110 (mg/dl) VANCOMYCIN LEVEL TROUGH Component Value Range VANCOMYCIN, TROUGH 20.4 (*) 10-20 (ug/ml) BP 104/56 | Pulse 70 | Temp(Src) 96 F (35.6 C) (Tympanic) | Resp 18 | Ht 5' 6" (1.676 m) | Wt 219 lb 9.6 oz (99.61 kg) | SpO2 99% General appearance: alert, in no distress Lungs: clear to auscultation bilaterally, normal respiratory effort Heart: normal rate, regular rhythm, normal S1, S2, no murmurs, rubs, clicks or g allops Leg lesion remains red, sl swollen, no drainage Lab reviewed RSR now. Xrays: reviewed Assessment: Patient Active Hospital Problem List: *MRSA (methicillin resistant staph aureus) culture positive (09/12/2010) DM w/o Complication Type I () Cor Athrscl-Uns Vessel () Unspecified Essential Hypertension () Chronic Airway Obstruction, not Elsewhere Classified () Cellulitis (09/10/2010) Plan: See orders. Cont IV antibiotics Monitor cardiac status. Cont to hold toprol Will need several days of IV vanco and will see about home rx probably starting next week. * Francie Duff RN - 09/11/2010 8:51 PM CDT Paged project control manager with pt's heart rate (running in 30's when first moved back and running mainly 50's now)and blood pressures-history on pt admission given as we ll. Questioning pm dose of imdur 60mg and ativan 1mg. Orders to continue with p m doses of both scheduled meds. * Jo Leger RN - 09/11/2010 3:45 PM CDT This pt suddenly developed chest pain and shortness of breath. o2 placed on and the pt had just received ms 4mg iv for the rt. Leg pain before the chest pain de veloped...... HOB elevated.... BP is at first hard to register on the machine th en it registered by manual to be 146/86.... Pt was not on the web feeder bu t has now been placed on one....... The Dr Manning was called and came to the [facility] home..... Lab draw of is0's, D-Dimer , and ABG's were done. Pt moved to CCU.... Family notified.... Pt Was given one Nitro. At the beginning of the chest pain. Report given to Althea POWERS after being moved to CCU. * Jeri Anderson RN - 09/11/2010 3:40 PM CDT 1540 Pt arrive from Med-surg via bed, Dr Manning at bedside along with Jo POWERS, and Kentrell RN supervisor boiler repair. Lab here to draw blood per orders, pt having chest pain , SOB, nauseated and diaphoretic. Pt placed on ICU monitor, VSS. Althea POWERS receiv ing report from Jo POWERS, new orders placed by Dr aMnning. * Lora Manning MD - 09/11/2010 11:24 AM CDT Subjective: Doing well, no fevers. No N/V. Objective: Patient Vitals in the past 8 hrs: BP Temp Temp src Pulse Resp SpO2 Weight 09/11/10 0900 - - - - - 99 % - 09/11/10 0715 127/60 mmHg 98.4 F (36.9 C) Tympanic 58 20 99 % - 09/11/10 0500 - - - - - - 215 lb 8 oz (97.75 kg) 09/11/10 0424 135/78 mmHg 98.9 F (37.2 C) Tympanic 84 20 99 % - 09/11/10 0415 117/63 mmHg 96.6 F (35.9 C) Tympanic 65 20 94 % - Intake/Output Summary (Last 24 hours) at 09/11/10 1124 Last data filed at 09/11/10 0829 Gross per 24 hour Intake 860 ml Output 600 ml Net 260 ml Results for orders placed during the hospital encounter of 09/10/10 (from the in st 24 hour(s)) CBC WITH DIFFERENTIAL Collection Time 09/10/10 3:25 PM Component Value Range WBC 7.94 3.0-10.4 (x10E3) RBC 4.58 4.15-5.75 (x10E6) HEMOGLOBIN 13.8 13.8-17.4 (g/dL) HEMATOCRIT 39.4 38.6-49.4 (%) MCV 86.0 79-100 (fL) MCH 30.2 28-34 (pg) MCHC 35.1 (*) 32-35 (g/dL) RDW 14.4 (*) 12.1-14.1 (%) PLATELETS 400 148-408 (x10E3) MPV 6.5 (*) 7.4-10.6 (fL) NEUTROPHILS 65.1 43-73 (%) LYMPHOCYTES 24.8 19-47 (%) MONOCYTES 5.7 3-9 (%) EOSINOPHILS 4.0 0-6 (%) BASOPHILS 0.4 0-1.2 (%) NEUTROPHIL ABSOLUTE 5.17 1.3-7.6 (x10E3) LYMPHOCYTE ABSOLUTE 1.97 0.6-4.9 (x10E3) MONOCYTE ABSOLUTE 0.45 0.1-0.9 (x10E3) EOSINOPHIL ABSOLUTE 0.31 (*) 0.0-0.2 (x10E3) BASOPHILS ABSOLUTE 0.03 0-0.1 (x10E3) COMPREHENSIVE METABOLIC PANEL Collection Time 09/10/10 3:25 PM Component Value Range GLUCOSE 170 (*) 70-100 (mg/dl) BUN 24.0 (*) 7-20 (mg/dl) CREATININE 1.22 0.8-1.3 (mg/dl) BUN/CREAT RATIO 19.7 10-20 GFR 64 >60 (ml/min) SODIUM 133 (*) 135-145 (mmol/L) POTASSIUM 4.4 3.3-4.8 (mmol/L) CHLORIDE 96 (*) 98-107 (mmol/L) CO2 27.4 22-31 (mmol/L) ANION GAP 14 4-20 CALCIUM 9.1 8.5-10.1 (mg/dl) ALBUMIN 4.5 3.4-5.0 (g/dl) TOTAL PROTEIN 7.5 6.4-8.2 (g/dl) GLOBULIN (CALC) 3.0 ALBUMIN/GLOBULIN RATIO 1.5 BILIRUBIN TOTAL 0.3 <1.1 (mg/dl) ALKALINE PHOSPHATASE 56 50-136 (IU/L) AST 24 10-40 (IU/L) ALT 38 25-70 (IU/L) POC GLUCOSE Collection Time 09/10/10 10:01 PM Component Value Range POC GLUCOSE 96 70-110 (mg/dl) POC GLUCOSE GRAPH VALUE 96 70-110 (mg/dl) POC GLUCOSE Collection Time 09/11/10 5:04 AM Component Value Range POC GLUCOSE 136 (*) 70-110 (mg/dl) POC GLUCOSE GRAPH VALUE 136 (*) 70-110 (mg/dl) General appearance: alert, in no distress Lungs: clear to auscultation bilaterally, normal respiratory effort Heart: normal rate, regular rhythm, normal S1, S2, no murmurs, rubs, clicks or g allops Abdomen: Soft, non-tender. Bowel sounds normal. No masses, no organomegaly. Extremities: moves all extremities equally, normal strength, normal tone Skin: Unchanged lesion to leg Assessment: Patient Active Hospital Problem List: *Cellulitis (09/10/2010) DM w/o Complication Type I () Unspecified Essential Hypertension () Plan: Continue vancomycin Will consult wound care nurse BS and BP well controlled, so continue current regimen * Tri Billingsley RN - 09/10/2010 7:10 PM CDT Pt complaints of largest sore on right lower leg causing him pain. Wound is more reddened since admit. Paged physician of condition. Will continue to monitor. No new orders received from physician. Will continue to monitor. * Blayne Telles, PHARMACIST - 09/10/2010 6:16 PM CDT While in hospital: Change Nexium to Protonix 40mg po daily. Change Claritin to Zyrtec 10mg po daily. Change Mag-Ox 250mg po TID to Mag-Ox 400mg po BID Change Betimolol to Timolol 0.5% 1 drop each eye BID. Per [employer] / Dr Manning / Blayne Telles, PHARMACIST * Blayne Telles, PHARMACIST - 09/10/2010 4:44 PM CDT Vancomycin Consult to Pharmacy Oliverio Tinsley is a 60 y.o. male Temp (24hrs), Av.6 F (36.4 C), Min:97.5 F (36.4 C), Max:97.6 F (36 .4 C) BP 122/66 | Pulse 62 | Temp(Src) 97.5 F (36.4 C) (Tympanic) | Resp 16 | Ht 5 ' 6" (1.676 m) | Wt 218 lb (98.884 kg) | SpO2 95% WBC Date/Time Value Range Status 09/10/2010 3:25 PM 7.94 3.0-10.4 (x10E3) Final 04/09/2010 12:45 PM 6.59 3.0-10.4 (x10E3) Final 03/01/2010 4:43 PM 7.65 3.0-10.4 (x10E3) Final BUN Date/Time Value Range Status 09/10/2010 3:25 PM 24.0* 7-20 (mg/dl) Final 05/08/2010 7:50 AM 22.0* 7-20 (mg/dl) Final 04/09/2010 12:45 PM 19.0 7-20 (mg/dl) Final CREATININE Date/Time Value Range Status 09/10/2010 3:25 PM 1.22 0.8-1.3 (mg/dl) Final 05/08/2010 7:50 AM 0.93 0.8-1.3 (mg/dl) Final 04/09/2010 12:45 PM 0.93 0.8-1.3 (mg/dl) Final Last documented weight: Weight: 218 lb (98.884 kg) (09/10/10 1519) [place] BW = 63.8 kg Dosing Weight = 98.9 kg Estimated CrCl is 70 mL/min Current Antibiotic Therapies Vancomycin Day # 1 of therapy Assessment: Oliverio Tinsley is a 60 y.o. male who is currently receiving Vancomycin 1750mg IV loading dose, followed by 1500mg IV every 12 hours for cellulitis. Plan: Vancomycin trough ordered for 09/12/10 at 0500. Dose is to be held if trough gre ater than 18 Thank you for the consult and involving us in the care of this patient, we will continue to monitor. Blayne Telles, PHARMACIST documented in this encounter H&P Notes * Lora Manning MD - 09/10/2010 6:01 PM CDT Subjective: Patient is a 60 y.o. male presents with worsening ulcerative celluliti s of RLE. He was seen 3 days ago in urgent care for this and given Bactrim. Wo und culture grew out MRSA susceptible to Bactrim. Home health nurse came to see pt and was very concerned by lesion, and pt says it has worsened, become more e rythematous and painful. No fevers or other systemic sx. Patient Active Problem List Diagnoses Date Noted Cellulitis [682.9N] 09/10/2010 Personal History of Colonic Polyps [V12.72] 02/06/2009 Tubular Adenoma [229.9ED] 02/05/2009 Follow-Up Examination, Following Unspecified Surgery [V67.00] 02/01/2009 Hyperlipidemia [272.4S] 11/12/2008 Anemia [285.9AA] 11/12/2008 DM w/o Complication Type I [250.01] Cor Athrscl-Uns Vessel [414.00] Unspecified Essential Hypertension [401.9] Other Convulsions [780.39] Chronic Airway Obstruction, not Elsewhere Classified [496] Unspecified Retention of Urine [788.20] BPH w/o Urinary Obs/LUTS [600.00] Neurogenic Bladder, NOS [596.54] Unspecified Glaucoma [365.9] Unspecified Asthma [493.90] Other Specified Forms of Chronic Ischemic Heart Disease [414.8] Bipolar Disorder, Unspecified [296.80] Past Medical History Diagnosis Date Wrist sprain 08/10 Rt. Contusion, back 08/16/03 Fall Cataract Unspecified disease of respiratory system Glaucoma Asthma Diabetes Seizure disorder Unspecified disorder of lipoid metabolism Coronary artery disease Unspecified chronic ischemic heart disease Unspecified essential hypertension Past Surgical History Procedure [...] 02/01/2009 COLONOSCOPY performed by BEULAH MOORE at [facility] OR hernia repair 1988 And age 4 Hx heart catheterization 04/10 With angioplasty, 2 stents Hx lap cholecystectomy 05/17/07 Prescriptions prior to admission Medication Sig Dispense Refill trimethoprim-sulfamethoxazole (BACTRIM DS) 800-160 mg Oral tablet Take 1 Tab by mouth 2 times daily for 10 days. 20 Tab 0 nitroglycerin (NITROSTAT) 0.[address] 1 Tab under tongue ev len 5 minutes as needed for Chest Pain. 25 Tab prn zolpidem (AMBIEN) 10 mg Oral tablet Take [...] by mouth daily. 30 Tab 1 1 DISCONTD: LORazepam (ATIVAN) 1 mg Oral tablet Take 1 Tab by mouth 2 times da maribel. 60 Tab 2 insulin glargine (LANTUS) 100 unit/mL subCUT Soln Inject by subcutaneous in jection. 20 units at hs. 10 mL 11 loratadine (CLARITIN) 10 mg Oral tablet Take 1 Tab by mouth daily. 30 Tab 11 simvastatin (ZOCOR) 80 mg Oral Tab Take 1 Tab by mouth daily at bedtime. 30 Tab 5 FLONASE 50 mcg/Actuation Both Nostril SpSn Administer 2 Sprays in each nostr il daily. ASPIRIN EC 81 mg Oral TbEC Take 81 mg by mouth daily. BETIMOL 0.5 % OP Drop Administer 1 Drop in both eyes 2 times daily. ACCU-CHEK ACTIVE TEST Strp by See Admin Instructions route 2 times daily. In the am & pm prn oxaprozin (DAYPRO) 600 mg Oral tablet [...] by inhalation every 6 hours as needed ALTACE 10 mg Oral Cap Take 10 mg by mouth daily. At noon TYLENOL 325 mg Oral Tab Take 1-2 Tabs by mouth every 4 hours as needed for P ain. Allergies Allergen Reactions Valium (Diazepam) Other (See Comments) "stops breathing, no pulse" Piperacillin-tazobactam Hives and Rash Breaks out Phenobarbital Weakness "relaxes me too much" Terazosin Other (See Comments) Chest heaviness, chest pain Codeine Unknown History Substance Use Topics Tobacco Use: Quit Quit date: 03/08/1995 Alcohol Use: No Family History Problem Relation Other Mother Blood pressure Diabetes Mother Respiratory Disease Mother Asthma Mother Other Sister Blood pressure Diabetes Sister Respiratory Disease Sister Heart Disease Sister Asthma Sister Lung Cancer Brother Seizures Brother Other Father "brain anuerysm" Healthy Daughter Healthy Son Healthy Daughter Healthy Daughter Healthy Son Healthy Son Healthy Son Healthy Son Review of Systems Allergic/Immunologic: negative. Cardiovascular: extensive cardiac hx. Constitutional: negative. Ears, nose, mouth, throat, and face: negative. Endocrine: DM. Gastrointestinal: negative. Genitourinary:negative. Integument/breast: see HPI. Musculoskeletal:negative. Neurological: negative. Respiratory: negative. Objective: Patient Vitals in the past 8 hrs: BP Temp Temp src Pulse Resp SpO2 Height Weight 09/10/10 1519 122/66 mmHg 97.5 F (36.4 C) Tympanic 62 16 95 % 5' 6" (1.676 m) 218 lb (98.884 kg) Intake/Output Summary (Last 24 hours) at 09/10/10 1801 Last data filed at 09/10/10 1736 Gross per 24 hour Intake 500 ml Output 0 ml Net 500 ml General appearance: alert, in no distress Back: symmetric, no curvature. ROM normal. No CVA tenderness. Lungs: clear to auscultation bilaterally, normal respiratory effort Heart: normal rate, regular rhythm, normal S1, S2, no murmurs, rubs, clicks or g allops Abdomen: Soft, non-tender. Bowel sounds normal. No masses, no organomegaly. Extremities: moves all extremities equally, normal strength, normal tone, ulcera tion with surrounding induration and erythema of RLE Skin: see above Lymph nodes: Cervical, supraclavicular, and axillary nodes normal. Neurologic: Grossly normal Musculoskeletal: no joint tenderness, deformity or swelling Assessment: Patient Active Hospital Problem List: *Cellulitis (09/10/2010) DM w/o Complication Type I () Unspecified Essential Hypertension () Plan: Vancomycin Continue current outpt regimen to manage DM and HTN documented in this encounter Procedure Notes * Henryk Scanning, Johnnie Physician - 09/16/2010 1:13 PM FINAL TOUCH UP PAINTER Associated Order(s): EKG 12-LEAD; EKG 12-LEAD * Henryk ScanningJohnnie Physician - 09/15/2010 11:50 AM FINAL TOUCH UP PAINTER Associated Order(s): TELEMETRY REPORT; TELEMETRY REPORT * Michele Dye MD - 09/12/2010 12:22 PM CDT Associated Order(s): EKG 12-LEAD; EKG 12-LEAD [address] [place], [place] [address] EKG OLIVERIO TINSLEY [id number] 09/11/10 at 1436. Rate 68, QRS 0.10, [place] + 1 degree. The rhythm is totally irregular and reproducible P waves are not identi fied preceding QRS complexes. Voltages are decreased in the limb leads. There is baseline movement which distorts the ST segments. R wave progression is minimal across the chest and borderline Q waves are present in the anteroseptal leads. Compared with previous tracing 04-21-10, R wave amplitudes were somewhat better i n V1 and V2. The rhythm was sinus at that time. Diagnosis: 1) Atrial fibrillatio n, ventricular rate 68. 2) Limb lead low voltage. 3) Poor R wave progression in chest leads; anteroseptal myocardial infarct of undetermined age cannot be ruled out. Dictated by Cirilo ICD: 412 Dictated by: EKG DD 09/12/10 TD 09/12/10/LRG EKG REPORT # [id number] ORDER # documented in this encounter Miscellaneous Notes * Scanned Form - Aok Scanning, [facility] Physician - 09/18/2010 12:51 PM FINAL TOUCH UP PAINTER * Scanned Form - Aok Scanning, [facility] Physician - 09/15/2010 11:26 AM FINAL TOUCH UP PAINTER * Scanned Form - Aok Scanning, [facility] Physician - 09/15/2010 11:26 AM FINAL TOUCH UP PAINTER * Care Plan - Althea Phipps RN - 09/13/2010 12:35 PM CDT Problem: Cellulitis (Adult, OB) Goal: Verbalize Understanding: Condition, plan of care, self-management of healt h/lifestyle alterations Patient/Family/S.O. will verbalize an understanding of Cellulitis (Adult, NICU, OB, Pediatric) its impact on present/future lifestyle, health status and functio nal performance Outcome: Met This Shift Reviewed with pt the plans given by Dr Mccallum this am,to change his status to s wing bed,leave him in this same room. * Care Plan - Althea Phipps RN - 09/12/2010 8:10 PM CDT Problem: Cellulitis (Adult, OB) Goal: Verbalize Understanding: Condition, plan of care, self-management of healt h/lifestyle alterations Patient/Family/S.O. will verbalize an understanding of Cellulitis (Adult, NICU, OB, Pediatric) its impact on present/future lifestyle, health status and functio nal performance Outcome: Ongoing This shift 7 am to 7 pm update report of plans for care given to pt,pt is aware of the lab test ordered in the am and that imcu specialist to check right calf reg ion as ordered by Dr Mccallum.This am Dr Mccallum talked with pt about his plans w gemma in the hospital. * Scanned Form - Willy Chaves, Johnnie Physician - 09/12/2010 11:38 AM CDT documented in this encounter Plan of Treatment Not on filedocumented as of this encounter Procedures Comments Procedure Name Priority Date/Time Associated Diag nosis EKG 12-LEAD Stat 09/16/2010 1:13 PM FINAL TOUCH UP PAINTER TELEMETRY REPORT 09/15/2010 11:50 AM FINAL TOUCH UP PAINTER POC GLUCOSE Routine 09/13/2010 11:20 AM CDT CBC WITH DIFFERENTIAL Routine 09/13/2010 5:00 AM CDT BASIC METABOLIC PANEL Routine 09/13/2010 5:00 AM CDT POC GLUCOSE Routine 09/12/2010 8:37 PM CDT POC GLUCOSE Routine 09/12/2010 3:53 PM CDT POC GLUCOSE Routine 09/12/2010 11:43 AM CDT POC GLUCOSE Routine 09/12/2010 7:27 AM CDT VANCOMYCIN LEVEL TROUGH Routine 09/12/2010 6:15 AM CDT CARDIAC ENZYMES Stat 09/12/2010 3:50 AM CDT TROPONIN Stat 09/12/2010 3:50 AM CDT CARDIAC INTERPRETATION (6 Stat 09/11/2010 HR) 10:12 PM CDT TROPONIN Stat 09/11/2010 10:12 PM CDT POC GLUCOSE Routine 09/11/2010 9:20 PM CDT CARDIAC INTERPRETATION (3 Stat 09/11/2010 HR) 6:30 PM CDT TROPONIN Stat 09/11/2010 6:30 PM CDT MYOGLOBIN Stat 09/11/2010 6:30 PM CDT XR CHEST PA OR AP 1 VW Routine 09/11/2010 5:10 PM CDT D-DIMER Stat 09/11/2010 3:50 PM CDT TROPONIN Stat 09/11/2010 3:45 PM CDT MYOGLOBIN Stat 09/11/2010 3:45 PM CDT GLUCOSE LEVEL Routine 09/11/2010 3:45 PM CDT BLOOD GAS ARTERIAL Stat 09/11/2010 3:45 PM CDT POC GLUCOSE Routine 09/11/2010 5:04 AM CDT POC GLUCOSE Routine 09/10/2010 10:01 PM CDT CBC WITH DIFFERENTIAL Routine 09/10/2010 3:25 PM CDT COMPREHENSIVE METABOLIC Routine 09/10/2010 PANEL 3:25 PM CDT documented in this encounter Results * EKG 12-LEAD (09/16/2010 1:13 PM FINAL TOUCH UP PAINTER) Narrative Performed At This result has an attachment that is n ot available. Procedure Note Michele Dye MD - 09/12/2010 12:22 PM CDT [facility]. [address] [place] [address]. [place], [place] [address] EKG OLIVERIO TINSLEY [id number] 09/11/10 at 1436. Rate 68, QRS 0.10, [place] + 1 degree. The rhythm is totally irregular and reproducible P waves are not identified preceding QRS complexes. Voltages are decreased in the limb leads. There is baseline movement which distorts the ST segments. R wave progression is minimal across the chest and borderline Q waves are present in the anteroseptal leads. Compared with previous tracing 04-21-10, R wave amplitudes were somewhat better in V1 and V2. The rhythm was sinus at that time. Diagnosis: 1) Atrial fibrillation, ventricular rate 68. 2) Limb lead low voltage. 3) Poor R wave progression in chest leads; anteroseptal myocardial infarct of undetermined age cannot be ruled out. Dictated by Cirilo ICD: 412 Dictated by: EKG DD 09/12/10 TD 09/12/10/LRG EKG REPORT # [id number] ORDER # Transcriptions 09/16/2010 1:13 PM FINAL TOUCH UP PAINTER * TELEMETRY REPORT (09/15/2010 11:50 AM FINAL TOUCH UP PAINTER) Narrative Performed At This result has an attachment that is n ot available. Procedure Note 09/15/2010 11:50 AM FINAL TOUCH UP PAINTER * POC GLUCOSE (09/13/2010 11:20 AM CDT) POC GLUCOSE 149 (H)Comment: Luigi Kaur 70 - 110 mg/dl [facility] De, Point of Care CENTER [facility],,,, [facility] POC GLUCOSE 149 (H) 70 - 110 mg/dl [facility] Specimen Capillary blood specimen (specimen) Performing Organization Address City/State/Zipcode Ph one Number [facility]ORATORY SERVICES CLIA# [id number] [place] [address] - [facility] [address] [place] [address] CLIA# [id number] Leonides JEFFERSON [address] [facility] [address] [place] [address] * BASIC METABOLIC PANEL (09/13/2010 5:00 AM CDT) GLUCOSE 105 (H) 70 - 100 mg/dl [facility] BUN 22.0 (H) 7 - 20 mg/dl [facility] CREATININE 1.00 0.8 - 1.3 mg/dl [facility] BUN/CREAT RATIO 22.0 (H) 10 - 20 [facility] [place] [facility] GFR 81 >60 ml/min [facility] PA [facility] SODIUM 132 (L) 135 - 145 mmol/L [facility] POTASSIUM 4.0 3.3 - 4.8 mmol/L [facility] CHLORIDE 99 98 - 107 mmol/L [facility] CO2 31.1 (H) 22 - 31 mmol/L [facility] ANION GAP 6 4 - 20 [facility] CALCIUM 8.6Comment: [facility] 8.5 - 10.1 mg/dl [facility] ACCT#[id number], ,,,, CENTER [facility] Specimen Blood specimen (specimen) Performing Organization Address City/State/Zipcovt Ph one Number [facility] CLIA# [id number] [place] [address] - [place] [address] [place] [address] CLIA# [id number] [place] [address] * CBC WITH DIFFERENTIAL (09/13/2010 5:00 AM CDT) WBC 5.48 3.0 - 10.4 x10E3 [facility] RBC 4.10 (L) 4.15 - 5.75 x10E6 [facility] HEMOGLOBIN 12.7 (L) 13.8 - 17.4 g/dL [facility] HEMATOCRIT 35.0 (L) 38.6 - 49.4 % [facility] MCV 85.4 79 - 100 fL [facility] MCH 30.9 28 - 34 pg [facility] [place] LAB MCHC 36.1 (H) 32 - 35 g/dL [facility] RDW 14.1 12.1 - 14.1 % [facility] PLATELETS 279 148 - 408 x10E3 [facility] MPV 6.7 (L) 7.4 - 10.6 fL [facility] [place] [facility] NEUTROPHILS 56.1 43 - 73 % [facility] [place] LYMPHOCYTES 34.1 19 - 47 % [facility] MONOCYTES 5.5 3 - 9 % [facility] EOSINOPHILS 3.8 0 - 6 % [facility] BASOPHILS 0.5 0 - 1.2 % [facility] NEUTROPHIL 3.07 1.3 - 7.6 x10E3 [facility] LAB LYMPHOCYTE 1.87 0.6 - 4.9 x10E3 [facility] MONOCYTE 0.30 0.1 - 0.9 x10E3 [facility] EOSINOPHIL 0.21 (H) 0.0 - 0.2 x10E3 [facility] BASOPHILS 0.03Comment: [facility] LYNN 0 - 0.1 x10E3 [facility] ACCT#[id number], ,,,, CENTER [facility] Specimen Blood specimen (specimen) Performing Organization Address City/[facility] Ph one Number [facility] CLIA# [id number] [place] MARIUSZ [address] - [address] [place] CLIA# [id number] Leonides JEFFERSNO [address] [facility] [address] [place] [address] * POC GLUCOSE (09/12/2010 8:37 PM CDT) [facility] POC GLUCOSE 196 (H)Comment: [facility] - 110 mg/dl [facility] De, Point of Care CENTER [facility],,,, [facility] POC GLUCOSE 196 (H) 70 - 110 mg/dl [facility] Specimen Capillary blood specimen (specimen) Performing Organization Address City/[facility] Ph one Number [facility] CLIA# [id number] MARIUSZ JEFFERSON [address] - [address] [place] CLIA# [id number] Leonides JEFFERSON [address] * POC GLUCOSE (09/12/2010 3:53 PM CDT) POC GLUCOSE 312 (H)Comment: [place] 70 - 110 mg/dl [facility] Faye De, Point of Care [facility],,,, [facility] POC GLUCOSE 312 (H) 70 - 110 mg/dl [facility] Specimen Capillary blood specimen (specimen) Performing Organization Address City/[facility] Ph one Number [facility] CLIA# [id number] [facility] [place] [address] [place] CLIA# [id number] Leonides JEFFERSON [address] * POC GLUCOSE (09/12/2010 11:43 AM CDT) POC GLUCOSE 244 (H)Comment: [place] 70 - 110 mg/dl [facility] Mariusz Ruggiero, Point of Care [facility],,,, [facility] POC GLUCOSE 244 (H) 70 - 110 mg/dl [facility] Specimen Performing Organization Address City/[facility] Ph one Number [facility] CLIA# [id number] [place] [address] [place] CLIA# [id number] Leonides JEFFERSON [address] * POC GLUCOSE (09/12/2010 7:27 AM CDT) POC GLUCOSE 133 (H)Comment: [place] 70 - 110 mg/dl [facility] Faye De, Point of Care [facility],,,, [facility] POC GLUCOSE 133 (H) 70 - 110 mg/dl [facility] [place] Specimen Capillary blood specimen (specimen) Performing Organization Address City/[facility] Ph one Number [facility] CLIA# [id number] [place] [address] - [facility] [address] [place] [address] [place] CLIA# [id number] Leonides JEFF[place] [address] [facility] [address] [place] [address] * VANCOMYCIN LEVEL TROUGH (09/12/2010 6:15 AM CDT) Pathologist [facility] VANCOMYCIN, 20.4 (HH) 10 - 20 ug/ml [facility] TROUGH Comment: [facility] Called to: Francie [facility] LAB Test results read back. Called by: Teo Lozada 09/12/10 0631 [facility] ACCT#[id number], ,,,, Specimen Blood specimen (specimen) Performing Organization Address [facility] one Critical access hospital LABORATORY SERVICES CLIA# [id number] MARIUSZ JEFFERSON - [address] CLIA# [id number] Leonides JEFF[place] [address] * TROPONIN (09/12/2010 3:50 AM CDT) [facility] TROPONIN I LESS THAN 0.04Comment: 0 - 0.4 ng/ml [facility] [place] ACCT#[id number], ,,,, [facility] Specimen Performing Organization Address [facility] one Critical access hospital LABORATORY SERVICES CLIA# [id number] MARIUSZ JEFFERSON [address] CLIA# [id number] [facility] Leonides RUGGIERO [address] * CARDIAC ENZYMES (09/12/2010 3:50 AM CDT) [facility] INTERPRETATION See below. [facility] Comment: [facility] INTERPRETATION - 09/12/10 0758 [facility] Complete series is negative for acute [place]. Linda Cerrato. [facility] ACCT#[id number], ,,,, Specimen Blood specimen (specimen) Performing Organization Address [facility] one Critical access hospital LABORATORY SERVICES CLIA# [id number] MARIUSZ JEFFERSON 667 - [facility] [address] [place] [address] CLIA# [id number] Leonides JEFFERSON [address] [facility] [address] * CARDIAC INTERPRETATION (6 HR) (09/11/2010 10:12 PM CDT) Pathologist [facility] INTERPRETATION Test not performedComment: [facility] [place] ACCT#[id number], ,,,, [facility] Specimen Performing Organization Address [facility] Ph one Critical access hospital LABORATORY SERVICES CLIA# [id number] [place], [place] [address] - [address] [place] CLIA# [id number] Leonides [place] S [address] [facility] [address] [place] [address] * TROPONIN (09/11/2010 10:12 PM CDT) [facility] TROPONIN I LESS THAN 0.04Comment: 0 - 0.4 ng/ml [facility] [place] ACCT#[id number], ,,,, [facility] Specimen Performing Organization Address [facility] one Critical access hospital LABORATORY SERVICES CLIA# [id number] [place] [address] [place] CLIA# [id number] Leonides JEFFERSON S [address] [facility] [address] [place] [address] * POC GLUCOSE (09/11/2010 9:20 PM CDT) [facility] POC GLUCOSE 205 (H)Comment: Mercedes 70 - 110 mg/dl [facility] Point of Care CENTER [facility],,,, [facility] POC GLUCOSE 205 (H) 70 - 110 mg/dl [facility] PA [facility] LAB Specimen Capillary blood specimen (specimen) Performing Organization Address [facility] one Critical access hospital LABORATORY SERVICES CLIA# [id number] [place], [place] [address] - [address] [place] CLIA# [id number] Leon[place] [address] * CARDIAC INTERPRETATION (3 HR) (09/11/2010 6:30 PM CDT) [facility] INTERPRETATION Test not performedComment: [facility] [place] ACCT#[id number], ,,,, [facility] Specimen Performing Organization Address [facility] Ph one Critical access hospital LABORATORY SERVICES CLIA# [id number] MARIUSZ JEFFERSON 66 - [facility] [address] [place] [address] [place] CLIA# [id number] [place] S [address] [facility] [address] [place] [address] * TROPONIN (09/11/2010 6:30 PM CDT) TROPONIN I LESS THAN 0.04Comment: 0 - 0.4 ng/ml [facility] LYNN [facility] ACCT#[id number], ,,,, [facility] Specimen Performing Organization Address [facility] one Critical access hospital LABORATORY SERVICES CLIA# [id number] MARIUSZ JEFFERSON 66 [facility] [address] [place] [address] CLIA# [id number] [place] S [address] [facility] [address] [place] [address] * MYOGLOBIN (09/11/2010 6:30 PM CDT) MYOGLOBIN, 37Comment: [facility]NN 16 - 97 ng/ml [facility] ACCT#[id number], ,,,, CENTER [facility] Specimen Performing Organization Address [facility] Ph one Critical access hospital LABORATORY SERVICES CLIA# [id number] MARIUSZ JEFFERSON 66 [facility] [address] [place] [address] [place] CLIA# [id number] [place] S [address] [facility] [address] [place] [address] * XR CHEST PA OR AP (09/11/2010 5:10 PM CDT) Specimen Impressions Performed At : No acute abnormality identified in the chest. If symptoms persist follow up PA and lateral exam may be of benefi t. Narrative Performed At Reason For Exam: Chest Pain ONE VIEW CHEST: INDICATION: Chest pain. One view chest obtained and comparison is made with 6-2-10. Previous midline sternotomy noted. No evidence for pneumonia, congestive failure, pleural effusion or pneumothor ax. Mild cardiomegaly is present. Procedure Note Wally Sharpe MD - 09/23/2010 11:24 AM FINAL TOUCH UP PAINTER Reason For Exam: Chest Pain ONE VIEW CHEST: INDICATION: Chest pain. One view chest obtained and comparison is made with 6-10. Previous midline sternotomy noted. No evidence for pneumonia, congestive failure, pleural effusion or pneumothorax. Mild cardiomegaly is present. IMPRESSION: No acute abnormality identified in the chest. If symptoms persist follow up PA and lateral exam may be of benefit. * D-DIMER (09/11/2010 3:50 PM CDT) [facility] D-DIMER QUANT Less than 100 0 - 400 ng/mL [facility] Comment: [facility] 90% of patients testing below [facility] 400 ng/ml have proven negative for Thromboembolic Events. [place], [place] ACCT#[id number], ,,,, Specimen Blood specimen (specimen) Performing Organization Address [facility] one Critical access hospital LABORATORY [facility] CLIA# [id number] [place] [address] CLIA# [id number] [place] [address] [facility] [address] [place] [address] * GLUCOSE LEVEL (09/11/2010 3:45 PM CDT) [facility] GLUCOSE 121 (H)Comment: 70 - 100 mg/dl [facility] ACCT#[id number], ,,,, [facility] Specimen Blood specimen (specimen) Performing Organization Address [facility] Ph one Critical access hospital LABORATORY SERVICES CLIA# [id number] [place], [place] [address] - [address] CLIA# [id number] [place] [address] [place] [facility] [address] [place] [address] * TROPONIN (09/11/2010 3:45 PM CDT) [facility] TROPONIN I LESS THAN 0.04Comment: 0 - 0.4 ng/ml [facility] ACCT#[id number], ,,,, [facility] Specimen Performing Organization Address [facility] Ph one Number [facility] LABORATORY SERVICES CLIA# [id number] MARIUSZ JEFFERSON [address] [place] [address] [place] [address] [place] CLIA# [id number] Leonides JEFFERSON [address] [facility] [address] [place] [address] * MYOGLOBIN (09/11/2010 3:45 PM CDT) Pathologist [facility] MYOGLOBIN, 29Comment: [facility] 16 - 97 ng/ml [facility] ACCT#[id number], ,,,, CENTER [facility] LAB Specimen Performing Organization Address [facility] one Critical access hospital LABORATORY SERVICES CLIA# [id number] MARIUSZ JEFFERSON [address] [place] [address] [place] [address] [place] CLIA# [id number] Leonides JEFFERSON [address] [facility] [address] [place] [address] * BLOOD GAS ARTERIAL (09/11/2010 3:45 PM CDT) [facility] PH ARTERIAL 7.46 (H) 7.35 - 7.45 [facility] PA [facility] LAB PO2 ARTERIAL 106 (H) 80 - 100 [facility] PA [facility] PCO2 ARTERIAL 36 35 - 48 [facility] PA [facility] HCO3 ARTERIAL 25.6 [facility] TCO2, ARTERIAL 26.7 24 - 28 [facility] PA [facility] LAB BASE EXCESS ABG 1.9 [facility] PA [facility] O2 SAT EST 98 (H) 90 - 97 % [facility] PA [facility] LAB ALLENS TEST OK [facility] PA [facility] LAB PUNC SITE RIGHT RADIALComment: [facility] [place] ACCT#[id number], ,,,, [facility] Specimen Arterial blood specimen (specimen) Performing Organization Address [facility] Ph one Number [facility] LABORATORY SERVICES CLIA# [id number] MARIUSZ JEFFERSON [address] PA [place] [address] [place] [address] [place] CLIA# [id number] Leonides JEFFERSON [address] [facility] [address] [place] [address] * POC GLUCOSE (09/11/2010 5:04 AM CDT) POC GLUCOSE 136 (H) 70 - 110 mg/dl [facility] Comment: [facility] ACCT#[id number], ,,,, [facility] [place], Point of Care Site,,,, POC GLUCOSE 136 (H) 70 - 110 mg/dl [facility] PA [facility] LAB Specimen Performing Organization Address City/[facility] Ph one Number [facility] LABORATORY SERVICES CLIA# [id number] MARIUSZ JEFFERSON [address] - PA [place] [address] [place] [address] [place] CLIA# [id number] Leonides JEFFERSON [address] [facility] [address] [place] [address] * POC GLUCOSE (09/10/2010 10:01 PM CDT) [facility] Signature POC GLUCOSE 96Comment: [facility] Faye, 70 - 110 mg/dl [facility], Point of Care Site,,,, GRAY [facility] POC GLUCOSE 96 70 - 110 mg/dl [facility] PA [facility] LAB Specimen Capillary blood specimen (specimen) Performing Organization Address City/[facility] Ph one Number [facility] LABORATORY SERVICES CLIA# [id number] MARIUSZ JEFFERSON [address] - PA [facility] [address] [place] [address] [place] CLIA# [id number] Leonides JEFFERSON [address] [facility] [address] [place] [address] * COMPREHENSIVE METABOLIC PANEL (09/10/2010 3:25 PM CDT) GLUCOSE 170 (H) 70 - 100 mg/dl [facility] BUN 24.0 (H) 7 - 20 mg/dl [facility] LAB CREATININE 1.22 0.8 - 1.3 mg/dl [facility] PA [facility] LAB BUN/CREAT RATIO 19.7 10 - 20 [facility] LAB GFR 64 >60 ml/min [facility] LAB SODIUM 133 (L) 135 - 145 mmol/L [facility] LAB POTASSIUM 4.4 3.3 - 4.8 mmol/L [facility] CHLORIDE 96 (L) 98 - 107 mmol/L [facility] LAB CO2 27.4 22 - 31 mmol/L [facility] LAB ANION GAP 14 4 - 20 [facility] LAB CALCIUM 9.1 8.5 - 10.1 mg/dl [facility] PA [facility] LAB ALBUMIN 4.5 3.4 - 5.0 g/dl [facility] PA [facility] TOTAL PROTEIN 7.5 6.4 - 8.2 g/dl [facility] GLOBULIN (CALC) 3.0 [facility] PA [facility] LAB ALBUMIN/GLOBULI 1.5 [facility] PA [facility] LAB BILIRUBIN TOTAL 0.3 <1.1 mg/dl [facility] PA [facility] LAB ALKALINE 56 50 - 136 IU/L [facility] PHOSPHATASE GRAY PA [facility] LAB AST 24 10 - 40 IU/L [facility] ALT 38Comment: [facility] LYNN 25 - 70 IU/L [facility] ACCT#[id number], ,,,, CENTER [facility] Specimen Blood specimen (specimen) Performing Organization Address City/State/[facility] Ph one Number [facility] LABORATORY SERVICES CLIA# [id number] [place] [address] - [place] [address] [place] [address] CLIA# [id number] [place] [address] * CBC WITH DIFFERENTIAL (09/10/2010 3:25 PM CDT) WBC 7.94 3.0 - 10.4 x10E3 [facility] PA [facility] LAB RBC 4.58 4.15 - 5.75 x10E6 [facility] PA [facility] LAB HEMOGLOBIN 13.8 13.8 - 17.4 g/dL [facility] PA [facility] LAB HEMATOCRIT 39.4 38.6 - 49.4 % [facility] LAB MCV 86.0 79 - 100 fL [facility] LAB MCH 30.2 28 - 34 pg [facility] MCHC 35.1 (H) 32 - 35 g/dL [facility] LAB RDW 14.4 (H) 12.1 - 14.1 % [facility] PLATELETS 400 148 - 408 x10E3 [facility] MPV 6.5 (L) 7.4 - 10.6 fL [facility] NEUTROPHILS 65.1 43 - 73 % [facility] LYMPHOCYTES 24.8 19 - 47 % [facility] MONOCYTES 5.7 3 - 9 % [facility] EOSINOPHILS 4.0 0 - 6 % [facility] BASOPHILS 0.4 0 - 1.2 % [facility] NEUTROPHIL 5.17 1.3 - 7.6 x10E3 [facility] LYMPHOCYTE 1.97 0.6 - 4.9 x10E3 [facility] [place] [facility] MONOCYTE 0.45 0.1 - 0.9 x10E3 [facility] [place] [facility] EOSINOPHIL 0.31 (H) 0.0 - 0.2 x10E3 [facility] BASOPHILS 0.03Comment: [facility] - 0.1 x10E3 [facility] ACCT#[id number], ,,,, [facility] [facility] Specimen Blood specimen (specimen) Performing Organization Address City/State/Zipcode Ph one Number [facility] CLIA# [id number] [place] [address] - [place] [address]# [id number] [facility] [place] [address] documented in this encounter Visit Diagnoses Diagnosis MRSA (methicillin resistant staph aureu s) culture positive - Primary Carrier or suspected carrier of Methici llin resistant Staphylococcus aureus Cellulitis Cellulitis and abscess of unspecified s ite Renal stone Calculus of kidney Essential hypertension Unspecified essential hypertension Coronary atherosclerosis of unspecified type of vessel, anvik or graft Chronic airway obstruction, not elsewhe re classified documented in this encounter Administered Medications Action Date Dose Rate Site Medication Order MAR Action 09/11/2010 4:02 PM CDT 2.5 mg albuterol (PROVENTIL,VENTOLIN) 2.5 mg /3 Given mL (0.083 %) inhalation solution 2.5 mg 2.5 mg, Inhalation, ONE TIME ONLY RESPIRATORY, 1 dose, Nancy 09/11/10 at 1545, Stat 09/13/2010 8:02 AM CDT 81 mg aspirin (ECOTRIN EC) tablet 81 mg Given 81 mg, Oral, DAILY, First dose on Wed09/11/10 at 0800, Until Discontinued, Routine 81 mg Given 09/12/2010 7:51 AM CDT 81 mg Given 09/11/2010 9:33 AM CDT 09/13/2010 8:04 AM CDT 25 mg bethanechol (URECHOLINE) tablet 25 mg Given 25 mg, Oral, FOUR TIMES DAILY, First dose on Wed09/10/10 at 1815, Until Discontinued, Routine 25 mg Given 09/12/2010 9:14 PM CDT 25 mg Given 09/12/2010 5:47 PM CDT 09/13/2010 8:04 AM CDT 10 mg cetirizine (ZYRTEC) tablet 10 mg Given 10 mg, Oral, DAILY, First dose on Wed09/11/10 at 0900, Until Discontinued, Routine 10 mg Given 09/12/2010 8:46 AM CDT 10 mg Given 09/11/2010 9:35 AM CDT 09/12/2010 3:22 PM CDT 75 mg clopidogrel (PLAVIX) tablet 75 mg Given 75 mg, Oral, DAILY, First dose on Wed09/11/10 at 1200, Until Discontinued, Routine 75 mg Given 09/11/2010 12:22 PM CDT 09/12/2010 3:23 PM CDT 40 mg Abdomen, Right Upper Quadrant enoxaparin (LOVENOX) injection 40 mg Given 40 mg, subCUT, DAILY, First dose on Wed09/10/10 at 1600, Until Discontinued, Routine 40 mg Abdomen, Left Lower Quadrant Given 09/11/2010 3:55 PM CDT 40 mg Abdomen, Left Lower Quadrant Given 09/10/2010 5:35 PM CDT 09/12/2010 9:14 PM CDT 10 mg ezetimibe (ZETIA) tablet 10 mg Given 10 mg, Oral, DAILY AT BEDTIME, First dose on Wed09/10/10 at 2100, Until Discontinued, Routine 10 mg Given 09/11/2010 9:15 PM CDT 10 mg Given 09/10/2010 10:50 PM CDT 09/12/2010 5:47 PM CDT 145 mg fenofibrate nanocrystallized (TRICOR) Given tablet 145 mg 145 mg, Oral, DAILY WITH SUPPER, First dose on Wed09/10/10 at 1800, Until Discontinued, Routine 145 mg Given 09/11/2010 6:08 PM CDT 145 mg Given 09/10/2010 6:25 PM CDT 09/13/2010 8:04 AM CDT 40 mg FLUoxetine (PROZAC) capsule 40 mg Given 40 mg, Oral, DAILY, First dose on Wed09/11/10 at 0900, Until Discontinued, Routine 40 mg Given 09/12/2010 8:45 AM CDT 40 mg Given 09/11/2010 9:33 AM CDT 09/13/2010 8:05 AM CDT 2 Sprays fluticasone (FLONASE) 50 mcg/spray nasal Given inhaler 2 [place] 2 [place], Both Nostrils, DAILY, First dose on Wed09/11/10 at 0900, Until Discontinued, Routine 2 Sprays Given 09/12/2010 8:46 AM CDT 2 Sprays Given 09/11/2010 9:35 AM CDT 09/12/2010 9:15 PM CDT 600 mg ibuprofen (MOTRIN) tablet 600 mg Given 600 mg, Oral, EVERY 8 HOURS PRN, Starting Wed09/10/10 at 1507, Until 09/13/10 at 1248, Pain, Routine 600 mg Given 09/11/2010 6:57 PM CDT 09/12/2010 9:15 PM CDT 20 Units Arm, Rig ht Upper insulin glargine (LANTUS) 100 unit/mL Given injection 20 Units 20 Units, subCUT, DAILY AT BEDTIME, First dose on Wed09/10/10 at 2100, Unti l Discontinued, Routine 20 Units Arm, Right Upper Given 09/11/2010 9:26 PM CDT 20 Units Arm, Left Upper Given 09/10/2010 10:50 PM CDT 09/13/2010 8:03 AM CDT 60 mg isosorbide mononitrate SR 24 hour Given (IMDUR) tablet 60 mg 60 mg, Oral, TWO TIMES DAILY, First dos e on Wed09/10/10 at 2100, Until Discontinued, Routine 60 mg Given 09/12/2010 9:19 PM CDT 60 mg Given 09/12/2010 8:45 AM CDT 09/13/2010 8:05 AM CDT 1 mg LORazepam (ATIVAN) tablet 1 mg Given 1 mg, Oral, TWO TIMES DAILY, First dose on Wed09/10/10 at 2100, Until Discontinued, Routine 1 mg Given 09/12/2010 9:15 PM CDT 1 mg Given 09/12/2010 8:47 AM CDT 09/13/2010 8:04 AM CDT 400 mg magnesium oxide (MAG-OX) tablet 400 mg Given 400 mg, Oral, TWO TIMES DAILY, First dose on Wed09/10/10 at 2100, Until Discontinued, Routine 400 mg Given 09/12/2010 9:15 PM CDT 400 mg Given 09/12/2010 8:47 AM CDT 09/11/2010 9:34 AM CDT 25 mg metoprolol succinate ER 24 hour Given (TOPROL-XL) tablet 25 mg 25 mg, Oral, DAILY, First dose on Wed09/11/10 at 0900, Until Discontinued, Routine 09/11/2010 3:19 PM CDT 4 mg morphine 5 mg/mL injection 4 mg Given 4 mg, IV, EVERY 1 HOUR PRN, Starting 09/10/10 at 1507, Until 09/13/10 at 1248, Pain, Severe, For Pain Scale 7-10 , Routine 09/13/2010 11:21 AM CDT 1 Tablet multivitamin,vd-hfwt-bm-min (THERA-M) Given tablet 1 Tab 1 Tablet, Oral, DAILY, First dose on 09/11/10 at 1200, Until Discontinued, Routine 1 Tablet Given 09/12/2010 11:45 AM CDT 1 Tablet Given 09/11/2010 1:55 PM CDT 09/11/2010 3:34 PM CDT 0.4 mg nitroglycerin (NITROSTAT) tablet 0.4 mg Given 0.4 mg, Sublingual, EVERY 5 MINUTES PRN , Starting Wed09/10/10 at 1757, Until 09/13/10 at 1248, Chest Pain, Routine 09/10/2010 7:23 PM CDT 1 Tablet oxyCODONE-acetaminophen (PERCOCET) 5-325 Given mg per tablet 1 Tab 1 Tablet, Oral, EVERY 4 HOURS PRN, Starting Wed09/10/10 at 1507, Until 09/13/10 at 1248, Pain, Moderate, For Pain Scale 4-6, Routine 09/13/2010 8:03 AM CDT 40 mg pantoprazole (PROTONIX) tablet 40 mg Given 40 mg, Oral, DAILY, First dose on Wed09/11/10 at 0730, Until Discontinued, Routine 40 mg Given 09/12/2010 7:50 AM CDT 40 mg Given 09/11/2010 6:38 AM CDT 09/13/2010 8:03 AM CDT 200 mg phenytoin sodium extended release Given (DILANTIN) capsule 200 mg 200 mg, Oral, TWO TIMES DAILY, First dose on Wed09/10/10 at 2100, Until Discontinued, Routine 200 mg Given 09/12/2010 9:14 PM CDT 200 mg Given 09/12/2010 8:45 AM CDT 09/12/2010 3:22 PM CDT 30 mg pioglitazone (ACTOS) tablet 30 mg Given 30 mg, Oral, DAILY, First dose on Wed09/11/10 at 1200, Until Discontinued, Routine 30 mg Given 09/11/2010 1:55 PM CDT 09/13/2010 11:21 AM CDT 10 mg ramipril (ALTACE) capsule 10 mg Given 10 mg, Oral, DAILY, First dose on Wed09/11/10 at 1200, Until Discontinued, Routine 10 mg Given 09/12/2010 11:45 AM CDT 10 mg Given 09/11/2010 1:56 PM CDT 09/12/2010 9:14 PM CDT 80 mg simvastatin (ZOCOR) tablet 80 mg Given 80 mg, Oral, DAILY AT BEDTIME, First dose on Wed09/10/10 at 2100, Until Discontinued, Routine 80 mg Given 09/11/2010 9:15 PM CDT 80 mg Given 09/10/2010 10:53 PM CDT 09/13/2010 8:06 AM CDT 3 mL sodium chloride 0.9 % flush injection 3 Given mL 3 mL, IV, TWO TIMES DAILY, First dose o n Wed09/10/10 at 2100, Until Discontinued , Routine 3 mL Given 09/12/2010 9:15 PM CDT 3 mL Given 09/12/2010 8:48 AM CDT 09/13/2010 11:25 AM CDT 3 mL sodium chloride 0.9 % flush injection 3 Given mL 3 mL, IV, SEE ADMIN INSTRUCTIONS, Starting Wed09/10/10 at 1511, Until Wed09/13/10 at 1248, Routine 3 mL Given 09/13/2010 2:42 AM CDT 3 mL Given 09/13/2010 12:43 AM CDT 09/12/2010 5:47 PM CDT 0.4 mg tamsulosin (FLOMAX) capsule 0.4 mg Given 0.4 mg, Oral, DAILY, First dose on Wed09/10/10 at 1815, Until Discontinued, Routine 0.4 mg Given 09/11/2010 5:59 PM CDT 0.4 mg Given 09/10/2010 6:25 PM CDT 09/13/2010 8:06 AM CDT 1 Drop timolol (TIMOPTIC) 0.5 % ophthalmic Given solution 1 Drop 1 Drop, Both Eyes, TWO TIMES DAILY, First dose on Wed09/10/10 at 2100, Unti l Discontinued, Routine 1 Drop Given 09/13/2010 12:43 AM CDT 1 Drop Given 09/12/2010 8:49 AM CDT 09/13/2010 11:22 AM CDT 1,000 mg 222.9 mL/hr vancomycin (VANCOCIN) 1,000 mg in sodium Given chloride 0.9 % 250 mL IVPB 1,000 mg, IV, EVERY 12 HOURS (BlD), First dose (after last modification) on Wed09/12/10 at 1200, Until Discontinued , Routine 1,000 mg 222.9 mL/hr Given 09/13/2010 12:42 AM CDT 1,000 mg 222.9 mL/hr Given 09/12/2010 11:45 AM CDT 09/11/2010 5:59 PM CDT 1,500 mg 132.5 mL/hr vancomycin (VANCOCIN) 1,500 mg in sodium Given chloride 0.9 % 250 mL IVPB 1,500 mg, IV, EVERY 12 HOURS (BlD), First dose on Wed09/11/10 at 0600, Unti l Discontinued, Routine 1,500 mg 132.5 mL/hr Given 09/11/2010 6:34 AM CDT 09/10/2010 5:36 PM CDT 1,750 mg 133.8 mL/hr vancomycin (VANCOCIN) 1,750 mg in sodium Given chloride 0.9 % 250 mL IVPB 1,750 mg, IV, ONE TIME ONLY, 1 dose, We d 09/10/10 at 1700, Routine 09/12/2010 9:19 PM CDT 10 mg zolpidem (AMBIEN) tablet 10 mg Given 10 mg, Oral, NIGHTLY PRN, Starting Wed09/10/10 at 1757, Until 09/13/10 at 1248, Insomnia, Routine 10 mg Given 09/11/2010 9:23 PM CDT 10 mg Given 09/10/2010 9:57 PM CDT documented in this encounter
--- OUTSIDE RECORDS SUMMARY | 2020-03-24 14:41 | XMS REPORT | Encounter Summary ---
Author Author [facility] Organization [facility] Address Unknown Phone Unavailable Care Team Providers Care Inspector Materials And Processes Name Role Phone Shahram Mccallum MD PCP Unavailable Reason for Visit * Reason Comments Wound Infection x 2 days on right lower leg . Encounter Details Care Team Description Date Type Department Fransisca Grijalva, CONCRETE [employer] [address] [place] [address] Cellulitis (Primary Dx) 09/07/2010 [facility] [address] [place] [phone] Social History Date Tobacco Use Types Packs/Day [...] Comments Vital Sign - - Blood Pressure 69 09/07/2010 3:49 PM CDT Pulse 36.7 C (98 F) 09/07/2010 3:49 PM CDT Temperature - - Respiratory Rate 98% 09/07/2010 3:49 PM CDT Oxygen Saturation - - Inhaled Oxygen Concentration - - Weight - - Height - - Body Mass Index documented in this encounter Progress Notes * Fransisca Grijalva ARNP - 09/07/2010 8:25 PM CDT Subjective: Oliverio Dalton is an 60 y.o. male who presents for evaluation of a possible sk in infection located on the right lower leg.. Symptom onset has been worsening for a time period of 2 days. Symptoms include pain, redness, exudate and warmth. Patient denies fever and chills. There is not a history trauma to the area. Kevin atment to date has included none with no relief. Objective: Pulse 69 | Temp 98 F (36.7 C) | SpO2 98% General appearance: alert, well appearing, and in no distress and well hydrated. Skin exam - cellulitis noted on right lower leg. The rest of the skin exam is in tact. Assessment: Cellulitis of right lower leg. Plan: Apply warm compresses. Elevate and rest affected area as appropriate. Antibiotics per orders. I have asked the patient to be on the alert for new or increasing symptoms such as persisting or increased redness or fever and to call directly or RTC promptly if such should occur. documented in this encounter Plan of Treatment Not on filedocumented as of this encounter Visit Diagnoses Diagnosis Cellulitis - Primary Cellulitis and abscess of unspecified s ite documented in this encounter"
--- OUTSIDE RECORDS SUMMARY | 2020-03-24 14:41 | XMS REPORT | Encounter Summary ---
Author Author [facility] Organization [facility] Address Unknown Phone Unavailable Care Team Providers Care Supervisor Pipe Finishing Name Role Phone Shahram Mccallum MD PCP Unavailable Reason for Visit * Reason Comments Results Encounter Details Care Team Description Date Type Department Nikky Woods Results 09/09/2010 Telephone [facility] Primar y Care [place] [address] [place] [address] Social History Date Tobacco Use [...] encounter Miscellaneous Notes * Telephone Encounter - Nikky Woods - 09/09/2010 3:53 PM CDT Patient called for would culture results per self personal development educator patient needs to fi suleiman bactrim ds, if not better patient needs to f/u documented in this encounter Plan of Treatment Not on filedocumented as of this encounter Visit Diagnoses Not on filedocumented in this encounter
--- OUTSIDE RECORDS SUMMARY | 2020-03-24 14:41 | XMS REPORT | Encounter Summary ---
Author Author [facility] Organization [facility] Address Unknown Phone Unavailable Care Team Providers Care Supervisor Printing Shop Name Role Phone Shahram Mccallum MD PCP Unavailable Reason for Visit * Reason Comments Scrotal Pain Encounter Details Care Team Description Date Type Department Shahram Mccallum MD NO ADDRESS ON FILE Epididymitis (Primary Dx); Pain in Scrotum or Testicle 05/22/2010 Office Visit [facility] [address] [place] [address] Social History Date Tobacco Use [...] Progress Notes * Shahram Mccallum MD - 05/24/2010 1:32 PM CDT Subjective: Oliverio Dalton is a 59 [...] prior to encounter Medication Sig Dispense Refill metoprolol succinate ER 24 hour (TOPROL XL) 25 mg Oral tablet Take 1 Tab by mouth daily. 30 Tab 11 levofloxacin (LEVAQUIN) 500 mg Oral tablet Take 1 Tab by mouth daily. 10 Ta b 0 FLUoxetine (PROZAC) 20 mg Oral capsule [...] fo r Insomnia. ok'd by dr yeh structural iron worker. 30 Tab 2 polyethylene glycol 3350 (MIRALAX) 17 gram/dose Oral Powd Take 1 SCOOP by mo uth daily. Dissolve in 8 ounces of fluid [...] Dalton complains of the following (by systems): persistent pain L scrotum / testicle despite rx prostate. no urinary sxs otherw ise. he can feel fulness Review of Systems: ROS Denies all of the following except his recognized chronic issues Headache Dizziness Chest pain Shortness of breath Bowel changes Bladder changes Pain in muscle or joints Exam/Objective: Normal Exam for Routine Visits: \There were no vitals taken for this visit. General appearance: chronic ill appearing, active, alert, cooperative, social, normally nourished, and in mod acute distress Thickening of cord structures L testicle. Assessment and Plan: ASSESSMENT: Encounter Diagnoses Name Primary? Epididymitis Yes Pain in Scrotum or Testicle PLAN: No orders of the defined types were placed in this encounter. Ultrasound and has ongoing f/u with uro. Appropriate medications prescribed (see detailed AVS). Appropriate patient instructions provided (see detailed AVS). Follow-up as I have indicated. Medications and options explained to include common side effects. Understanding of medications, course, diagnosis, and expectations were expressed by patient/g uardian. documented in this encounter Plan of Treatment Not on filedocumented as of this encounter Visit Diagnoses Diagnosis Epididymitis - Primary Orchitis and epididymitis, unspecified Pain in scrotum or testicle Unspecified disorder of male genital or keyshawn documented in this encounter
--- OUTSIDE RECORDS SUMMARY | 2020-03-24 14:41 | XMS REPORT | Encounter Summary ---
Author Author [facility] Organization [facility] Address Unknown Phone Unavailable Care Team Providers Care Director Of Religious Activities Name Role Phone Shahram Mccallum MD PCP Unavailable Reason for Visit * Reason Comments Diarrhea no fever or abd pain, hasn' t tried any thing to control Encounter Details Care Team Description Date Type Department Rosalinda Bal Diarrhea (no fever or abd pain, hasn't t ried any thing to control) 08/15/2010 Telephone [facility] Primar y Care [place] [address] [place] [address] Social History Date Tobacco [...] * Telephone Encounter - Rosalinda Bal - 08/15/2010 12:[address] Mccallum clear liq diet for 24 hours and Imodium. If not improved after th at needs seen. documented in this encounter Plan of Treatment Not on filedocumented as of this encounter Visit Diagnoses Not on filedocumented in this encounter
--- OUTSIDE RECORDS SUMMARY | 2020-03-24 14:41 | XMS REPORT | Encounter Summary ---
Author Author [facility] Organization [facility] Address Unknown Phone Unavailable Care Team Providers Care Hammer Repairer Name Role Phone Shahram Mccallum MD PCP Unavailable Reason for Visit * Reason Comments Medication Refill Encounter Details Care Team Description Date Type Department Shahram Mccallum MD NO ADDRESS ON FILE 05/14/2010 Refill [facility] Primar y Care [address] [phone] Social History Date Tobacco Use Types Packs/Day [...]
--- OUTSIDE RECORDS SUMMARY | 2020-03-24 14:41 | XMS REPORT | Encounter Summary ---
Author Author [facility] Organization [facility] Address Unknown Phone Unavailable Care Team Providers Care Superintendent Menagerie Name Role Phone Shahram Mccallum MD PCP Unavailable Encounter Details Care Team Description Date Type Department Shahram Mccallum MD NO ADDRESS ON FILE 05/16/2010 Abstract [facility] Primar y Care [place] [address] [place] [phone] Social History Date Tobacco Use Types Packs/Day [...]
--- OUTSIDE RECORDS SUMMARY | 2020-03-24 14:41 | XMS REPORT | Encounter Summary ---
Author Author [facility] Organization [facility] Address Unknown Phone Unavailable Care Team Providers Care Production Specialist Name Role Phone Shahram Mccallum MD PCP Unavailable Reason for Visit * Reason Comments Medication Refill Encounter Details Care Team Description Date Type Department Judy Irvin RN 07/30/2010 Refill [facility] Primar y Care [address] [phone] Social History Date Tobacco Use Types Packs/Day [...]
--- OUTSIDE RECORDS SUMMARY | 2020-03-24 14:41 | XMS REPORT | Encounter Summary ---
Author Author [facility] Organization [facility] Address Unknown Phone Unavailable Care Team Providers Care Guest Service Supervisor Name Role Phone Shahram Mccallum MD PCP Unavailable Reason for Visit * Reason Comments Medication Refill Encounter Details Care Team Description Date Type Department Lora Manning MD NO ADDRESS ON FILE 09/10/2010 Refill [facility] Primar y Care [address] [phone] Social History Date Tobacco Use Types Packs/Day [...]
--- OUTSIDE RECORDS SUMMARY | 2020-03-24 14:41 | XMS REPORT | Encounter Summary ---
Author Author [facility] Address Unknown Phone Unavailable Care Team Providers Care Linux Consultant Name Role Phone Shahram Mccallum MD PCP Unavailable Reason for Referral * Outpatient Services (Routine) Referred By Contact Referred To Contact Status Reason Specialty Diagnoses / Procedures [facility] Primary Care [address] [phone] [employer] [facility] [address] [place] [address] Closed Radiology Diagnoses Scrotum swelling P rocedures US SCROTUM AND TESTICLES Reason for Visit * Outpatient Services (Routine) Referred By Contact Referred To Contact Status Reason Specialty Diagnoses / Procedures [facility] Primary Care [facility] [address] [place] [address] [employer] [facility] [address] [place] [address] Closed Radiology Diagnoses Scrotum swelling P rocedures US SCROTUM AND TESTICLES Encounter Details Care Team Description Date Type Department Shahram Mccallum MD NO ADDRESS ON FILE 05/27/2010 Hospital [facility] F or[facility] Encounter [facility] [address] [place] [address] Social History Date Tobacco Use [...] Drop in both eyes 2 times daily. 05/14/2010 05/05/2011 metoprolol succinate ER Take 1 [...] Tab 11 mg Oral tablet mouth daily. 03/13/2010 09/10/2010 LORazepam (ATIVAN) 1 mg Take 1 Tab by 60 Tab 2 Oral tablet mouth 2 times daily. 03/05/2010 09/10/2010 insulin glargine (LANTUS) Inject by 10 mL 11 100 unit/mL subCUT Soln subcutaneous injection. 20 units at hs. 03/05/2010 06/04/2010 zolpidem (AMBIEN) 10 mg Take 1 Tab by 30 Tab 2 Oral tablet mouth nightly as needed for Insomnia. ok'd by dr yeh lead radiation therapist. 02/19/2010 03/03/2011 loratadine (CLARITIN) 10 Take 1 Tab by 30 Tab 11 mg Oral tablet mouth daily. 02/04/2010 03/10/2011 clopidogrel (PLAVIX) 75 Take 1 Tab by 30 Tab 11 mg Oral Tab mouth daily. 01/22/2010 07/22/2010 bethanechol (URECHOLINE) Take 1 Tab by 120 Tab 5 25 mg Oral tablet mouth 4 times daily. 01/22/2010 07/22/2010 oxaprozin (DAYPRO) 600 mg Take 1 Tab by 30 Tab 5 Oral tablet mouth daily. 01/15/2010 07/16/2010 tamsulosin SR 24 hour Take 1 Cap by 30 Cap 5 (FLOMAX) 0.4 mg Oral mouth daily. capsule 30 min. After supper 01/09/2010 07/30/2010 nitroglycerin (NITROSTAT) Place 1 Tab 25 Tab 0 0.4 mg Sublingual Subl under tongue every 5 minutes as needed for Chest Pain. 12/25/2009 12/15/2010 isosorbide mononitrate SR Take 1 [...] Name Priority Date/Time Associated Diag nosis US SCROTUM AND TESTICLES Routine 05/27/2010 Scrot um Swelling 10:10 AM CDT documented in this encounter Results * US SCROTUM AND TESTICLES (05/27/2010 10:10 AM CDT) Specimen Impressions Performed At : Small hydroceles. Narrative Performed At [facility]: HISTORY: Swelling. Multiple longitudinal and transverse im ages are obtained through the scrotum. The right testis is of anish l size, shape, and contour measuring 5.2x2.0x3.3 cm. There is normal echog enicity. There is normal flow on doppler. There is a small right hydro black. The left testis is of normal size, shape, and contour measuring 4.1x 2.1x3.5 cm. There is normal echogenicity. There is normal flow on doppler. There is a small to moderate left hydrocele. Procedure Note Oliverio Muhammad MD - 05/27/2010 2:26 PM CDT [facility]: HISTORY: Swelling. Multiple longitudinal and transverse images are obtained through the scrotum. The right testis is of normal size, shape, and contour measuring 5.2x2.0x3.3 cm. There is normal echogenicity. There is normal flow on doppler. There is a small right hydrocele. The left testis is of normal size, shape, and contour measuring 4.1x2.1x3.5 cm. There is normal echogenicity. There is normal flow on doppler. There is a small to moderate left hydrocele. IMPRESSION: Small hydroceles. documented in this encounter Visit Diagnoses Diagnosis Scrotum swelling Edema of male genital organs documented in this encounter
--- OUTSIDE RECORDS SUMMARY | 2020-03-24 14:41 | XMS REPORT | Encounter Summary ---
Author Author [facility] Organization [facility] Address Unknown Phone Unavailable Care Team Providers Care Ocular Pathologist Name Role Phone Shahram Mccallum MD PCP Unavailable Reason for Visit * Reason Comments Medication Refill Encounter Details Care Team Description Date Type Department Shahram Mccallum MD NO ADDRESS ON FILE 07/22/2010 Refill [facility] Primar y Care [address] [phone] Social History Date Tobacco Use Types Packs/Day [...]
--- OUTSIDE RECORDS SUMMARY | 2020-03-24 14:41 | XMS REPORT | Encounter Summary ---
Author Author [facility] Organization [facility] Address Unknown Phone Unavailable Care Team Providers Care Automatic Riveting Machine Operator Name Role Phone Shahram Mccallum MD PCP Unavailable Reason for Visit * Auth/Cert Referred By Contact Referred To Contact Status Reason Specialty Diagnoses / Procedures [facility] Med Surg [address] [place] [phone] Closed Inpatient Diagnoses cellulitis Encounter Details Care Team Description Date Type Department Fransisca Grijalva, MILITARY AIRCRAFT DESIGNER [address] [place] [address] Cellulitis (Primary Dx) 09/07/2010 Orders Only [facility] Lab Services [address] [phone] Social History Date Tobacco [...] Procedure Name Priority Date/Time Associated Diag nosis WOUND CULTURE WITH GRAM Routine 09/07/2010 Cellul itis STAIN 4:09 PM CDT documented in this encounter Results * WOUND CULTURE WITH GRAM STAIN (09/07/2010 4:09 PM CDT) WOUND CULTURE PLEASE NOTE ORGANISM PRESENT [facility] 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 [facility] SPECIAL PRECAUTIONS ARE NEEDED FOR PREVENTION OF NOSOCOMIAL TRANSMISSION. ORGANISM STAPHYLOCOCCUS AUREUS (A) [facility] WOUND CULTURE QUANTITY OF ORGANISM: [facility] Specimen Specimen from wound (specimen) - Leg, right Antibiotic Method Susceptibility Organism CIPROFLOXACIN MAURI MCG/ML >=8: Resistant Staphylococcus aureus ERYTHROMYCIN MAURI MCG/ML >=8: Resistant Staphylococcus aureus GENTAMICIN MAURI MCG/ML <=0.5: Susceptible Staphylococcus aureus LEVOFLOXACIN MAURI MCG/ML 4: Resistant Staphylococcus aureus LINEZOLID MAURI MCG/ML 2: Susceptible Staphylococcus aureus OXACILLIN MAURI MCG/ML >=4: Resistant Staphylococcus aureus PENICILLIN MAURI MCG/ML >=0.5: Resistant Staphylococcus aureus RIFAMPIN MAURI MCG/ML <=0.5: Susceptible Staphylococcus aureus TETRACYCLINE MAURI MCG/ML >=16: Resistant Staphylococcus aureus TRIMETHOPRIM/ SULFAMETHOXAZOLE MAURI MCG/ML <=10: Susceptible Staphylococcus aureus VANCOMYCIN MAURI MCG/ML <=0.5: Susceptible Staphylococcus aureus Comment: GAB [facility]AN ACCT#[id number], ,,,, Performing Organization Address City/State/Zipcode Ph one Number [facility] LABORATORY SERVICES CLIA# [id number] [place] [address] - [place] [address] [place] [address] RIVER[place]# [id number] [place] [address] documented in this encounter Visit Diagnoses Diagnosis Cellulitis - Primary Cellulitis and abscess of unspecified s ite documented in this encounter
--- OUTSIDE RECORDS SUMMARY | 2020-03-24 14:41 | XMS REPORT | Encounter Summary ---
Author Author [facility] Organization [facility] Address Unknown Phone Unavailable Care Team Providers Care Ekg Tech Name Role Phone Shahram Mccallum MD PCP Unavailable Reason for Referral * Outpatient Services (Routine) Referred By Contact Referred To Contact Status Reason Specialty Diagnoses / Procedures [facility] Primary Care [facility] [address] [place] [address] [facility] Mammography [address] [place] [address] Closed Radiology Diagnoses Scrotum swelling P rocedures US SCROTUM AND TESTICLES Encounter Details Care Team Description Date Type Department Rosalinda Bal Scrotum Swelling (Primary Dx) 05/22/2010 Orders Only [facility] Primar y Care [place] [address] [place] [address] Social History Date Tobacco Use [...] as of this encounter Results * US SCROTUM AND [...] this encounter Visit Diagnoses Diagnosis Scrotum swelling - Primary Edema of male genital organs documented in this encounter
--- OUTSIDE RECORDS SUMMARY | 2020-03-24 14:41 | XMS REPORT | Encounter Summary ---
Author Author [facility] Organization [facility] Address Unknown Phone Unavailable Care Team Providers Care Elevating Grader Operator Name Role Phone Shahram Mccallum MD PCP Unavailable Reason for Visit * Reason Comments Medication Refill Encounter Details Care Team Description Date Type Department Shahram Mccallum MD NO ADDRESS ON FILE 07/16/[address] [facility] Primar y Care [address] [phone] Social History Date Tobacco Use Types Packs/Day [...]
--- OUTSIDE RECORDS SUMMARY | 2020-03-24 14:41 | XMS REPORT | Encounter Summary ---
Author Author [facility] Organization [facility] Address Unknown Phone Unavailable Care Team Providers Care Communications Officer Name Role Phone Shahram Mccallum MD PCP Unavailable Encounter Details Care Team Description Date Type Department Shahram Mccallum MD NO ADDRESS ON FILE [facility], Lab Schedule Walter Oconnor MD [address] [facility] [address] [place] [address] 05/08/2010 [facility] General Encounter Laboratory Services [address] [phone] Social History Date Tobacco Use [...] Drop in both eyes 2 times daily. 05/07/2010 06/30/2011 FLUoxetine (PROZAC) 20 mg Take [...] needed for Insomnia. ok'd by dr yeh control supervisor. 02/19/2010 03/03/2011 loratadine (CLARITIN) 10 Take 1 [...] mg Oral CpDR mouth daily before breakfast. 10/30/2009 05/14/2010 metoprolol succinate ER Take 1 Tab by 30 Tab 5 24 hour (TOPROL XL) 25 mg mouth daily. Oral tablet 01/23/2009 08/04/2011 simvastatin (ZOCOR) 80 mg Take [...] Priority Date/Time Associated Diag nosis HEMOGLOBIN A1C Routine 05/08/2010 DM w/o Complica tion Type 7:50 AM CDT I PHENYTOIN LEVEL, TOTAL Routine 05/08/2010 Seizure Disorder 7:50 AM CDT LIPID PANEL Routine 05/08/2010 Hyperlipidemia 7:50 AM CDT COMPREHENSIVE METABOLIC Routine 05/08/2010 Hyperl ipidemia PANEL 7:50 AM CDT documented in this encounter Results * PHENYTOIN LEVEL, TOTAL (05/08/2010 7:50 AM CDT) PHENYTOIN TOTAL 20.2 (H)Comment: 10 - 20 ug/ml [facility] ACCT#[id number], ,,,, [facility] Specimen Blood specimen (specimen) Performing Organization Address City/State/Zipcode Ph one Number [facility]ORY [facility] CLIA# [id number] [place] [address] - [place] [address] [place] [address] CLIA# [id number] [place] [address] [address] * COMPREHENSIVE METABOLIC PANEL (05/08/2010 7:50 AM CDT) GLUCOSE 152 (H) 70 - 100 mg/dl [facility] BUN 22.0 (H) 7 - 20 mg/dl [facility] CREATININE 0.93 0.8 - 1.3 mg/dl [facility] BUN/CREAT RATIO 23.7 (H) 10 - 20 [facility] GFR 88 >90 ml/min [facility] SODIUM 139 135 - 145 mmol/L [facility] POTASSIUM 4.5 3.3 - 4.8 mmol/L [facility] CHLORIDE 104 98 - 107 mmol/L [facility] CO2 24.1 22 - 31 mmol/L [facility] ANION GAP 15 4 - 20 [facility] CALCIUM 8.9 8.5 - 10.1 mg/dl [facility] ALBUMIN 4.2 3.4 - 5.0 g/dl [facility] TOTAL PROTEIN 7.0 6.4 - 8.2 g/dl [facility] GLOBULIN (CALC) 2.8 [facility] ALBUMIN/GLOBULI 1.5 [facility] BILIRUBIN TOTAL 0.2 <1.1 mg/dl [facility] ALKALINE 48 (L) 50 - 136 IU/L [facility] PHOSPHATASE [place] [facility] AST 17 10 - 40 IU/L [facility] ALT 34Comment: [facility] PACE 25 - 70 IU/L [facility] ACCT#[id number], ,,,, CENTER [facility] Specimen Blood specimen (specimen) Performing Organization Address City/[facility] Ph one Number [facility] CLIA# [id number] [place] [address] [place] [address] [place] [address] CLIA# [id number] [place] [address] * HEMOGLOBIN A1C (05/08/2010 7:50 AM CDT) HEMOGLOBIN A1C 6.7 (H) 0 - 6.0 % [facility] GLUCOSE, MEAN 146Comment: [facility] [place] mg/dl [facility] BLOOD ACCT#[id number], ,,,, [facility]ENTER [facility] Specimen Blood specimen (specimen) Performing Organization Address City/[facility] Ph one Number [facility] CLIA# [id number] [facility] [place] [address] [address] [place] [address] [place] [address] [place]# [id number] [place] [address] * LIPID PANEL (05/08/2010 7:50 AM CDT) [facility] CHOLESTEROL 225 (H) 140 - 200 mg/dl [facility] TRIGLYCERIDE 363 (H) 0 - 199 mg/dl [facility] Comment: [facility] TRIGLYCERIDES NORMAL LESS THAN 150 mg/dl BORDERLINE HIGH 150 - 199 mg/dl HIGH 200 - 499 mg/dl VERY HIGH GREATER THAN OR = 500 mg/dl HDL 48 27 - 67 mg/dl [facility] LDL 130 <130 mg/dl [facility] CHOLESTEROL, Comment: [facility] DIRECT [facility] RISK CATEGORY LDL GOAL High risk: <100 mg/dl CHD or CHD risk equivalents (optional goal: <70 mg/dl) (10-year risk > 20%) Moderately high risk <130 mg/dl 2+ risk factors (10-year risk 10% to 20%) Moderate risk: <130 mg/dl 2+ risk factors (10-year risk < 10%) Lower risk: <160 mg/dl 0-1 risk factor [facility] ACCT#[id number], ,,,, Specimen Blood specimen (specimen) Performing Organization Address City/State/[facility] Ph one Number [facility] CLIA# [id number] [place] [address] - [place] [address] [place] [address] CLIA# [id number] [place] [address] documented in this encounter Visit Diagnoses Diagnosis Hyperlipidemia Other and unspecified hyperlipidemia 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
--- OUTSIDE RECORDS SUMMARY | 2020-03-24 14:42 | XMS REPORT | Encounter Summary ---
Author Author [facility] Organization [facility] Address Unknown Phone Unavailable Care Team Providers Care Rubber Moulding Machine Operator Name Role Phone Shahram Mccallum MD PCP Unavailable Reason for Visit * Reason Comments Medication Refill Encounter Details Care Team Description Date Type Department Shahram Mccallum MD NO ADDRESS ON FILE 02/04/2010 Refill [facility] Primar y Care [address] [phone] Social History Date Tobacco Use Types Packs/Day [...]
--- OUTSIDE RECORDS SUMMARY | 2020-03-24 14:42 | XMS REPORT | Encounter Summary ---
Author Author [facility] Organization [facility] Address Unknown Phone Unavailable Care Team Providers Care Development Mgr Name Role Phone Shahram Mccallum MD PCP Unavailable Reason for Visit * Reason Comments Chest Pain Pt to er wtih cc of upper l eft side chest pain. Pt states this pain started today and pain is much worse wi th movement or lifting of his left arm and his pain is worse with taking a deep breath. Pt very concerned and came to er for evaluation. Encounter Details Care Team Description Date Type Department Costochondritis 04/21/2010 Emergency [facility] Emergency Department [address] [phone] Social History Date Tobacco Use Types Packs/Day [...] Signs Reading Time Taken Comments Vital Sign 172/81 04/21/2010 10:19 AM CDT Blood Pressure 70 04/21/2010 10:19 AM CDT Pulse 36.8 C (98.3 F) 04/21/2010 10:19 AM CDT Temperature 20 04/21/2010 10:19 AM CDT Respiratory Rate 95% 04/21/2010 10:19 AM CDT Oxygen Saturation - - Inhaled Oxygen Concentration 102.1 kg (225 lb) 04/21/2010 10:19 AM CDT Weight 167.6 cm (5' 6") 04/21/2010 10:19 AM CDT Height 36.32 04/21/2010 10:19 AM CDT Body Mass Index documented in this encounter Discharge Instructions * Instructions* Mal [place] PA - 04/21/2010 You have lot's of chest wall pain. An anti-inflammatory might help. I suggest Aleve, 220 mg tablets. You can try 2 tablets twice per day for a week. Let your doctor know if this helps. I would increase from 1 aspirin daily to 2 d aily while on Aleve. documented in this encounter Medications at Time of Discharge Start Date End Date Medication Sig Dispensed Refills 12/29/2007 BETIMOL 0.5 % OP Drop Administer 1 0 Drop in both eyes 2 times daily. 04/09/2010 04/07/2011 pioglitazone (ACTOS) 30 Take [...] needed for Insomnia. ok'd by dr yeh concrete tester. 02/19/2010 03/03/2011 loratadine (CLARITIN) 10 Take 1 [...] XL) 25 mg mouth daily. Oral tablet 10/30/2009 05/07/2010 fluoxetine (PROZAC) 20 mg Take 2 Caps 60 Cap 5 Oral Cap by mouth daily. 08/07/2009 04/23/2010 phenytoin (PHENYTEK) 200 Take 1 Cap by 60 Cap 5 mg Oral Cap mouth 2 times daily. 01/23/2009 08/04/2011 simvastatin (ZOCOR) 80 mg [...] as of this encounter Procedure Notes * Johnnie Duque Physician - 04/24/2010 11:50 AM CDT Associated Order(s): EKG 12-LEAD; EKG 12-LEAD * Michele Dye MD - 04/22/2010 11:13 AM CDT Associated Order(s): EKG 12-LEAD; EKG 12-LEAD [facility] [address] [place] [address] EKG OLIVERIO DALTON OU [id number] 04/21/10 at 1025. Rate 74, CO 0.19, QRS 0.08, [place] +9 degrees. The rhythm is regular and of sinus origin. R wave progres moira is slow across the chest. T waves tend to be flattened in many leads. Erfugio red with previous tracing 04-09-10, there are no major differences. Diagnosis: 1) Normal sinus rhythm. 2) Limb lead low voltage. 3) Clockwise rotation of horizont al electrical axis. 4) Nonspecific T wave changes. Dictated by Cirilo ICD: 794.31 Dictated by: EKG DD 04/22/10 TD 04/22/10/LRG EKG REPORT # [id number] ORDER # documented in this encounter ED Notes * Johnnie Duque Physician - 04/22/2010 9:24 AM CDT * Aly Nance RN - 04/21/2010 11:25 AM CDT Pt resting on cart and no pain at this time. documented in this encounter Plan of Treatment Not on filedocumented as of this encounter Procedures Comments Procedure Name Priority Date/Time Associated Diag nosis EKG 12-LEAD Stat 04/24/2010 11:50 AM CDT TROPONIN Stat 04/21/2010 10:52 AM CDT documented in this encounter Results * EKG 12-LEAD (04/24/2010 11:50 AM CDT) Narrative Performed At This result has an attachment that is n ot available. Procedure Note Michele Dye MD - 04/22/2010 11:13 AM CDT [facility] [address] [place] [address]. [place], [place] [address] EKG OLIVERIO DALTON OU [id number] 04/21/10 at 1025. Rate 74, CO 0.19, QRS 0.08, [place] +9 degrees. The rhythm is regular and of sinus origin. R wave progression is slow across the chest. T waves tend to be flattened in many leads. Compared with previous tracing 04-09-10, there are no major differences. Diagnosis: 1) Normal sinus rhythm. 2) Limb lead low voltage. 3) Clockwise rotation of horizontal electrical axis. 4) Nonspecific T wave changes. Dictated by Cirilo ICD: 794.31 Dictated by: EKG DD 04/22/10 TD 04/22/10/LRG EKG REPORT # [id number] ORDER # Transcriptions 04/24/2010 11:50 AM CDT * TROPONIN (04/21/2010 10:52 AM CDT) TROPONIN I 0.04Comment: MERCEDESGAB LYNN 0 - 0.4 ng/ml [facility] ACCT#[id number], ,,,, CENTER [facility] Specimen Blood specimen (specimen) Performing Organization Address City/State/Zipcode Ph one Number [facility]OR[facility]ORY SERVICES CLIA# [id number] [place] [address] - [place] [address] [place] [address] CLIA# [id number] [place] [address] [address] documented in this encounter Visit Diagnoses Diagnosis Costochondritis Tietze's disease documented in this encounter
--- OUTSIDE RECORDS SUMMARY | 2020-03-24 14:42 | XMS REPORT | Encounter Summary ---
Author Author [facility] Organization [facility] Address Unknown Phone Unavailable Care Team Providers Care Bung Remover Name Role Phone Shahram Mccallum MD PCP Unavailable Reason for Visit * Reason Comments Medication Refill Encounter Details Care Team Description Date Type Department Shahram Mccallum MD NO ADDRESS ON FILE 04/09/2010 Refill [facility] Primar y Care [address] [phone] Social History Date Tobacco Use Types Packs/Day [...]
--- OUTSIDE RECORDS SUMMARY | 2020-03-24 14:42 | XMS REPORT | Encounter Summary ---
Author Author [facility] Organization [facility] Address Unknown Phone Unavailable Care Team Providers Care Lumpia Wrapper Maker Name Role Phone Shahram Mccallum MD PCP Unavailable Reason for Visit * Reason Comments Medication Refill Encounter Details Care Team Description Date Type Department Shahram Mccallum MD NO ADDRESS ON FILE 03/13/2010 Refill [facility] Primar y Care [address] [phone] Social History Date Tobacco Use Types Packs/Day [...]
--- OUTSIDE RECORDS SUMMARY | 2020-03-24 14:42 | XMS REPORT | Encounter Summary ---
Author Author [facility] Organization [facility] Address Unknown Phone Unavailable Care Team Providers Care Manager Therapy Name Role Phone Shahram Mccallum MD PCP Unavailable Reason for Visit * Reason Comments Medication Refill Encounter Details Care Team Description Date Type Department Shahram Mccallum MD NO ADDRESS ON FILE 03/05/2010 Refill [facility] Primar y Care [address] [phone] Social History Date Tobacco Use Types Packs/Day [...]
--- OUTSIDE RECORDS SUMMARY | 2020-03-24 14:42 | XMS REPORT | Encounter Summary ---
Author Author [facility] Organization [facility] Address Unknown Phone Unavailable Care Team Providers Care Health And Physical Education Teacher Name Role Phone Shahram Mccallum MD PCP Unavailable Reason for Visit * Reason Comments Medication Refill Encounter Details Care Team Description Date Type Department Fadumo Flores 02/18/2010 Refill [facility] l Surgery [address] [phone] Social History Date Tobacco Use [...]
--- OUTSIDE RECORDS SUMMARY | 2020-03-24 14:42 | XMS REPORT | Encounter Summary ---
Author Author [facility] Organization [facility] Address Unknown Phone Unavailable Care Team Providers Care Maintenance Clerk Name Role Phone Shahram Mccallum MD PCP Unavailable Reason for Visit * Reason Comments Seizure f/u emergency room yesterda y Encounter Details Care Team Description Date Type Department Shahram Mccallum MD NO ADDRESS ON FILE Other Convulsions (Primary Dx) 03/03/2010 Office Visit [facility] Primar y [facility] [address] [place] [address] Social History Date Tobacco Use [...] Reading Time Taken Comments Vital Sign 120/74 03/03/2010 12:31 PM CDT Blood Pressure 64 03/03/2010 12:31 PM CDT Pulse - - Temperature 16 03/03/2010 12:31 PM CDT Respiratory Rate - - Oxygen Saturation - - Inhaled Oxygen Concentration - - Weight - - Height - - Body Mass Index documented in this encounter Progress Notes * Shahram Mccallum MD - 03/03/2010 12:58 PM CDT Subjective: Oliverio Dalton is a [...] prior to encounter Medication Sig Dispense Refill lorazepam (ATIVAN) 1 mg Oral tablet Take 0.5 Tabs by mouth every 6 hours as needed. 5 Tab None polyethylene glycol 3350 (MIRALAX) 17 gram/dose Oral Powd Take 1 SCOOP by mo uth daily. Dissolve in 8 ounces of fluid and drink entire liquid 17 Gram 0 loratadine (CLARITIN) 10 mg Oral tablet Take 1 Tab by mouth daily. 30 Tab 11 clopidogrel (PLAVIX) 75 mg Oral Tab Take 1 Tab by mouth daily. 30 Tab 11 zolpidem (AMBIEN) 10 mg Oral tablet Take 1 Tab by mouth nightly as needed fo r Insomnia. ok'd by dr yeh nurse monitoring. 30 Tab 0 lorazepam (ATIVAN) 1 mg Oral tablet Take 1 Tab by mouth 2 times daily. ok'd by dr yeh nurse monitoring 60 Tab 0 bethanechol (URECHOLINE) 25 mg Oral tablet Take [...] Tab by mouth daily. 30 Tab 5 fluoxetine (PROZAC) 20 mg Oral Cap Take 2 Caps by mouth daily. 60 Cap 5 DISCONTD: phenytoin (DILANTIN) 100 mg Oral Cap Take 1 Cap by mouth daily ear ly morning. 30 Cap 5 magnesium oxide 250 mg Oral Tab Take 1 Tab by mouth 3 times daily. phenytoin (PHENYTEK) 200 mg Oral Cap Take 1 Cap by mouth 2 times daily. 60 Cap 5 pioglitazone (ACTOS) 30 mg Oral Tab Take 1 Tab by mouth daily. 30 Tab 11 HYDROCODONE BIT/ACETAMINOPHEN (HYDROCODONE-ACETAMINOPHEN) 7.5-500 mg Oral Ta b Take 1 Tab by mouth every 4 hours as needed for Pain. 20 Tab None simvastatin (ZOCOR) 80 mg Oral Tab Take 1 Tab by mouth daily at bedtime. 30 Tab 5 FLONASE 50 mcg/Actuation Both Nostril SpSn Administer 2 Sprays in each nostr il daily. insulin glargine (LANTUS) 100 unit/mL subCUT Soln Inject by subcutaneous in jection. 20 units at hs. 10 mL 5 ASPIRIN EC 81 mg Oral TbEC Take [...] Drop in both eyes 2 times daily. DEEP SEA NASAL NA Administer 2 Sprays in each nostril 2 times daily. ACCU-CHEK ACTIVE TEST Strp by See Admin Instructions route 2 times daily. In the am & pm prn ALTACE 10 mg Oral Cap Take 10 mg by mouth daily. At noon TYLENOL 325 mg Oral Tab Take 1-2 Tabs by mouth every 4 hours as needed for P ain. See dilantin level HPI: Mr. Dalton complains of the following (by systems): had prolonged seizure like episode yesterday with mild posturing and tremor. no LOC or lat neuro deficits. some vague chest discomfort but neg lab in ER. Review of Systems: ROS Denies all of the following: Headache Dizziness Chest pain Shortness of breath Bowel changes Bladder changes Pain in muscle or joints Exam/Objective: Normal Exam for Routine Visits: \Blood pressure 120/74, pulse 64, resp. rate 16. General appearance: alert, cooperative, no distress, social, normally nourished, and in no acute [...] and Plan: ASSESSMENT: Encounter Diagnosis Name Primary? Other Convulsions Yes PLAN: No orders of the defined types were placed in this encounter. Increase dilantin 200mg to bid Appropriate medications prescribed (see detailed AVS). Appropriate patient instructions provided (see detailed AVS). Follow-up as I have indicated. Medications and options explained to include common side effects. Understanding of medications, course, diagnosis, and expectations were expressed by patient/g uardian. documented in this encounter Plan of Treatment Not on filedocumented as of this encounter Visit Diagnoses Diagnosis Other convulsions - Primary documented in this encounter
--- OUTSIDE RECORDS SUMMARY | 2020-03-24 14:42 | XMS REPORT | Encounter Summary ---
Author Author [facility] Organization [facility] Address Unknown Phone Unavailable Care Team Providers Care Rippler Name Role Phone Shahram Mccallum MD PCP Unavailable Reason for Visit * Reason Comments Medication Refill Encounter Details Care Team Description Date Type Department Shahram Mccallum MD NO ADDRESS ON FILE 04/23/2010 Refill [facility] Primar y Care [address] [phone] Social History Date Tobacco Use Types Packs/Day [...]
--- OUTSIDE RECORDS SUMMARY | 2020-03-24 14:42 | XMS REPORT | Encounter Summary ---
Author Author [facility] Organization [facility] Address Unknown Phone Unavailable Care Team Providers Care General Dentist Name Role Phone Shahram Mccallum MD PCP Unavailable Encounter Details Care Team Description Date Type Department Shahram Mccallum MD NO ADDRESS ON FILE [facility], Lab Schedule 02/06/2010 Hospital [facility] General Encounter Laboratory Services [address] [phone] Social History Date Tobacco Use [...] Drop in both eyes 2 times daily. 02/04/2010 03/10/2011 clopidogrel (PLAVIX) 75 Take 1 Tab by 30 Tab 11 mg Oral Tab mouth daily. 01/22/2010 03/05/2010 zolpidem (AMBIEN) 10 mg Take 1 Tab by 30 Tab 0 Oral tablet mouth nightly as needed for Insomnia. ok'd by dr yeh contract design agent. 01/22/2010 07/22/2010 bethanechol (URECHOLINE) Take 1 Tab [...] Cap 5 Oral Cap by mouth daily. 10/21/2009 03/03/2010 phenytoin (DILANTIN) 100 Take 1 Cap by 30 Cap 5 mg Oral Cap mouth daily burglar alarm superintendent. 08/21/2009 02/19/2010 loratadine (CLARITIN) 10 Take 1 Tab by 30 Tab 5 mg Oral Tab mouth daily. 08/07/2009 04/23/2010 phenytoin (PHENYTEK) 200 Take 1 Cap by 60 Cap 5 mg Oral Cap mouth 2 times daily. 04/18/2009 04/09/2010 pioglitazone (ACTOS) 30 Take 1 Tab by 30 Tab 11 mg Oral Tab mouth daily. 01/23/2009 08/04/2011 simvastatin (ZOCOR) 80 mg Take 1 Tab by 30 Tab 5 Oral Tab mouth daily at bedtime. 03/15/2012 FLONASE 50 mcg/Actuation Administer 2 0 Both Nostril SpSn Sprays in each nostril daily. 10/18/2008 03/05/2010 insulin glargine (LANTUS) Inject by 10 mL 5 100 unit/mL subCUT Soln subcutaneous injection. 20 units at hs. 12/29/2007 08/04/2011 TRICOR 145 mg Oral Tab [...] Form - Aok Scanning, Amb Physician - 02/07/2010 12:44 PM CDT * Scanned Form - Aok Scanning, Amb Physician - 02/07/2010 12:43 PM CDT documented in this encounter Plan of Treatment Not on filedocumented as of this encounter Procedures Comments Procedure Name Priority Date/Time Associated Diag nosis PSA Routine 02/06/2010 BPH (Benign Pro static 7:28 AM CDT Hyperplasia) BPH w/o Urinary Obs/LUTS DM w/o Complication Type I Hyperlipidemia HEMOGLOBIN A1C Routine 02/06/2010 DM w/o Complica tion Type 7:28 AM CDT I LIPID PANEL Routine 02/06/2010 Hyperlipidemia 7:28 AM CDT COMPREHENSIVE METABOLIC Routine 02/06/2010 PANEL 7:28 AM CDT documented in this encounter Results * PSA (02/06/2010 7:28 AM CDT) Pathologist [facility] PSA 0.5 < OR = 4.0 ng/mL [facility] Comment: [facility] This test was performed using FAYE DSOUZA the Siemens chemiluminescent method. Values obtained from different assay methods cannot be used interchangeably. PSA levels, regardless of value, should not be interpreted as absolute evidence of the presence or absence of disease. Test performed at [facility] [place] [address] [place] [address] Director: CHICHI CARTWRIGHT DO,MPH [facility], ,,,, Specimen Blood specimen (specimen) Performing Organization Address City/State/Zipcode Ph one Number INTERFACE SYSTEM [facility] PA MARTINEZ# [id number] [place] [address] [place] [address] [facility] * LIPID PANEL (02/06/2010 7:28 AM CDT) CHOLESTEROL 273 (H) 140 - 200 mg/dl [facility] PA DSOUZA TRIGLYCERIDE 573 (H) 0 - 199 mg/dl [facility] Comment: [facility] REFERENCE RANGE - [facility] TRIGLYCERIDES NORMAL LESS THAN 150 mg/dl BORDERLINE HIGH 150 - 199 mg/dl HIGH 200 - 499 mg/dl VERY HIGH GREATER THAN OR = 500 mg/dl HDL 46 27 - 67 mg/dl [facility] LDL 148 (H) <130 mg/dl [facility] CHOLESTEROL, Comment: [place] DIRECT [facility] RISK CATEGORY LDL GOAL High risk: <100 mg/dl CHD or CHD risk equivalents (optional goal: <70 mg/dl) (10-year risk > 20%) Moderately high risk <130 mg/dl 2+ risk factors (10-year risk 10% to 20%) Moderate risk: <130 mg/dl 2+ risk factors (10-year risk < 10%) Lower risk: <160 mg/dl 0-1 risk factor [id number] ACCT#[id number], ,,,, Specimen Blood specimen (specimen) Performing Organization Address City/[facility] [place] [place] Ph one Number INTERFACE SYSTEM [facility] [place] CLIA# [id number] [place] [address] [facility] [address] [place] [address] * HEMOGLOBIN A1C (02/06/2010 7:28 AM CDT) HEMOGLOBIN A1C 7.3 (H) 0 - 6.0 % [facility] GLUCOSE, MEAN 163Comment: [place] mg/dl [facility] BLOOD ACCT#[id number], ,,,, CENTER [facility] Specimen Blood specimen (specimen) Performing Organization Address [facility] [place] [place] Ph one Number [facility] [id number] [place] [address] [facility] [address] [place] [address] * COMPREHENSIVE METABOLIC PANEL (02/06/2010 7:28 AM CDT) GLUCOSE 209 (H) 70 - 100 mg/dl [facility] BUN 23.0 (H) 7 - 20 mg/dl [facility] CREATININE 0.99 0.8 - 1.3 mg/dl [facility] BUN/CREAT RATIO 23.2 (H) 10 - 20 [facility] GFR 82 >90 ml/min [facility] SODIUM 136 135 - 145 mmol/L [facility] POTASSIUM 4.3 3.3 - 4.8 mmol/L [facility] CHLORIDE 101 98 - 107 mmol/L [facility] CO2 27.0 22 - 31 mmol/L [facility] ANION GAP 12 4 - 20 [facility] CALCIUM 8.6 8.5 - 10.1 mg/dl [facility] ALBUMIN 4.2 3.4 - 5.0 g/dl [facility] TOTAL PROTEIN 7.4 6.4 - 8.2 g/dl [facility] GLOBULIN (CALC) 3.2 [facility] [place] [facility] ALBUMIN/GLOBULI 1.3 [facility] N RATIO [place] [facility] BILIRUBIN TOTAL 0.3 <1.1 mg/dl [facility] ALKALINE 77 50 - 136 IU/L [facility] PHOSPHATASE [place] [facility] AST 19 10 - 40 IU/L [facility] ALT 43Comment: [facility],[place] 25 - 70 IU/L [facility] ACCT#[id number], ,,,, CENTER [facility] Specimen Blood specimen (specimen) Performing Organization Address City/State/Zipcode Ph one Number INTERFACE SYSTEM [facility] CLIA# [id number] [place] [address] [facility] [address] [facility] documented in this encounter Visit Diagnoses Diagnosis Type I (juvenile type) diabetes mellitu s without mention of complication, not stated as uncontrolled Hyperlipidemia Other and unspecified hyperlipidemia BPH (benign prostatic hyperplasia) Unspecified hyperplasia of prostate wit hout urinary obstruction and other lower urinary tract symptoms (LUTS) Hypertrophy of prostate without urinary obstruction and other lower urinary tract symptoms (LUTS) documented in this encounter
--- OUTSIDE RECORDS SUMMARY | 2020-03-24 14:42 | XMS REPORT | Encounter Summary ---
Author Author [facility] Organization [facility] Address Unknown Phone Unavailable Care Team Providers Care Oracle Sql Developer Name Role Phone Shahram Mccallum MD PCP Unavailable Reason for Visit * Reason Comments Medication Refill Encounter Details Care Team Description Date Type Department Shahram Mccallum MD NO ADDRESS ON FILE 03/05/2010 Refill [facility] Primar y Care [address] [phone] Social History Date Tobacco Use Types Packs/Day [...]
--- OUTSIDE RECORDS SUMMARY | 2020-03-24 14:42 | XMS REPORT | Encounter Summary ---
Author Author [facility] Organization [facility] Address Unknown Phone Unavailable Care Team Providers Care Gluer Name Role Phone Shahram Mccallum MD PCP Unavailable Reason for Visit * Reason Comments Medication Refill Encounter Details Care Team Description Date Type Department Shahram Mccallum MD NO ADDRESS ON FILE 02/19/2010 Refill [facility] Primar y Care [address] [phone] Social History Date Tobacco Use Types Packs/Day [...]
--- OUTSIDE RECORDS SUMMARY | 2020-03-24 14:42 | XMS REPORT | Encounter Summary ---
Author Author [facility] Organization [facility] Address Unknown Phone Unavailable Care Team Providers Care Managing Editor Name Role Phone Shahram Mccallum MD PCP Unavailable Reason for Visit * Reason Comments Seizure Pt to er with cc of seizure activity for the past hour, pt did have some chest pain after about 1 hour of seizur e activity. Pt did take a ntg at home and his chest pain went away. Encounter Details Care Team Description Date Type Department Walter Goldberg MD [address] [phone] Other Convulsions 03/01/[address] [facility] Emergency Department [address] [phone] Social History Date Tobacco [...] Signs Reading Time Taken Comments Vital Sign 133/60 03/01/2010 4:46 PM CDT Blood Pressure 78 03/01/2010 4:46 PM CDT Pulse 36.9 C (98.4 F) 03/01/2010 4:46 PM CDT Temperature 16 03/01/2010 4:46 PM CDT Respiratory Rate 99% 03/01/2010 4:46 PM CDT Oxygen Saturation - - Inhaled Oxygen Concentration 90.7 kg (200 lb) 03/01/2010 4:46 PM CDT Weight 170.2 cm (5' 7") 03/01/2010 4:46 PM CDT Height 31.32 03/01/2010 4:46 PM CDT Body Mass Index documented in this encounter Discharge Instructions * Instructions* Trinh Corona, RN - 03/01/2010 *Call your doctor on Wednesday and make him aware of your er visit. *Fill your prescription for ativan and take as directed. No strenuous activity until you discuss your ER visit with your PCP. * Attachments The following attachments cannot be sent through Care Everywhere.* SEIZURE: AFTER YOUR VISIT TO THE EMERGENCY ROOM ([facility]) documented in this encounter Medications at Time of Discharge Start Date End Date Medication Sig Dispensed Refills 12/29/2007 BETIMOL 0.5 % OP Drop Administer 1 0 Drop in both eyes 2 times daily. 03/01/2010 03/13/2010 lorazepam (ATIVAN) 1 mg Take 0.5 Tabs 5 Tab 0 Oral tablet by mouth every 6 hours as needed. 02/19/2010 03/03/2011 loratadine (CLARITIN) 10 Take 1 Tab by 30 Tab 11 mg Oral tablet mouth daily. 02/04/2010 03/10/2011 clopidogrel (PLAVIX) 75 Take 1 Tab by 30 Tab 11 mg Oral Tab mouth daily. 01/22/2010 03/05/2010 zolpidem (AMBIEN) 10 mg Take 1 Tab by 30 Tab 0 Oral tablet mouth nightly as needed for Insomnia. ok'd by dr yeh television cable installer. 01/22/2010 07/22/2010 bethanechol (URECHOLINE) Take 1 Tab [...] Cap 5 mg Oral Cap mouth daily vascular surgery physician. 08/07/2009 04/23/2010 phenytoin (PHENYTEK) 200 Take 1 [...] Procedure Notes * Johnnie Duque Physician - 03/04/2010 11:06 AM CDT Associated Order(s): EKG 12-LEAD; EKG 12-LEAD * Michele Dye MD - 03/03/2010 11:21 AM CDT Associated Order(s): EKG 12-LEAD; EKG 12-LEAD [facility]. [address] [place] [address]. [place], [place] [id number] EKG OLIVERIO TINSLEY [id number] 03/01/10 @ 1706 Rate 70, ID 0.20, QRS 0.08, axis +72 degrees. The rhythm is regular and of sinu s origin. R wave progression is minimal through V4. T waves are generally flatte tessy. Compared with the previous tracing 10-19-09, there were similar T wave lewis ges. R wave amplitudes were better in V3 and V4. Diagnosis: 1) Normal sinus rhyt hm. 2) Poor R wave progression in anterior chest leads consistent with clockwise rotation of horizontal electrical axis. 3) Nonspecific T wave changes. Dictated by [employer] ICD: 794.31 Dictated by: EKG DD 03/03/10 TD 03/03/10/NEC EKG REPORT # [id number] ORDER # documented in this encounter ED Notes * Aok Scanning, Amb Physician - 03/03/2010 9:55 AM CDT documented in this encounter Plan of Treatment Not on filedocumented as of this encounter Procedures Comments Procedure Name Priority Date/Time Associated Diag nosis EKG 12-LEAD Stat 03/04/2010 11:06 AM CDT URINALYSIS WITH REFLEX Stat 03/01/2010 CULTURE 6:13 PM CDT XR CHEST PA OR AP 1 VW Stat 03/01/2010 5:18 PM CDT CBC WITH DIFFERENTIAL Stat 03/01/2010 4:43 PM CDT TROPONIN Stat 03/01/2010 4:43 PM CDT MYOGLOBIN Stat 03/01/2010 4:43 PM CDT PHENYTOIN LEVEL, TOTAL Stat 03/01/2010 4:43 PM CDT COMPREHENSIVE METABOLIC Stat 03/01/2010 PANEL 4:43 PM CDT documented in this encounter Results * EKG 12-LEAD (03/04/2010 11:06 AM CDT) Narrative Performed At This result has an attachment that is n ot available. Procedure Note Michele Dye MD - 03/03/2010 11:[address] [facility]. [address] [place] [address]. [place], [place] [address] EKG OLIVERIO TINSLEY [id number] 03/01/10 @ 1706 Rate 70, ID 0.20, QRS 0.08, axis +72 degrees. The rhythm is regular and of sinus origin. R wave progression is minimal through V4. T waves are generally flattened. Compared with the previous tracing 10-19-09, there were similar T wave changes. R wave amplitudes were better in V3 and V4. Diagnosis: 1) Normal sinus rhythm. 2) Poor R wave progression in anterior chest leads consistent with clockwise rotation of horizontal electrical axis. 3) Nonspecific T wave changes. Dictated by [employer]ilo ICD: 794.31 Dictated by: EKG DD 03/03/10 TD 03/03/10/NEC EKG REPORT # [id number] ORDER # Transcriptions 03/04/2010 11:06 AM CDT * URINALYSIS WITH REFLEX CULTURE (03/01/2010 6:13 PM CDT) GLUCOSE UA Negative Negative mg/dl [facility] BILIRUBIN UA Negative Negative [facility] KETONES UA Negative Negative mg/dl [facility] SPECIFIC 1.010 [facility] GRAVITY UA [facility] PH UA 6.5 [facility] PROTEIN UA Negative Negative mg/dl [facility] UROBILINOGEN UA <2.0 0.2 - 1.0 EU/dl [facility] NITRITE UA Negative Negative [facility] BLOOD UA Negative Negative [facility] LEUKOCYTE Negative Negative [facility] ESTERASE UA [facility] COLOR UA Yellow [facility] CLARITY UA Clear [facility] WBC UA 2-5 0 - 5 /HPF [facility] RBC UA 0-2 0 - 2 /HPF [facility] BACTERIA UA 1+ Negative /HPF [facility] MUCOUS, URINE Light /LPF [facility] EPITHELIAL Rare squamous [facility] CELLS, URINE [facility] AMORPHOUS 1+Comment: [place] Negative /HPF [facility] CRYSTAL ACCT#[id number], ,,,, CENTER [facility] Specimen Urine, clean catch Performing Organization Address [facility] Ph one Number [facility] CLIA# [id number] GAB [place] [address] [place] CLIA# [id number] [place] [facility] [place] [address] * XR CHEST PA OR AP (03/01/2010 5:18 PM CDT) Specimen Impressions Performed At : No acute abnormality is identified in t he chest. Narrative Performed At Reason For Exam: Chest Pain PORTABLE CHEST Portable view of the chest obtained at 17:16 hours is compared with 10/18/2009. There are postoperative c hanges of previous midline sternotomy and coronary artery bypass s urgery. No evidence of pneumonia, congestive failure, pleural effusion or pneumothorax identified. Procedure Note Wally Sharpe MD - 03/03/2010 4:15 PM CDT Reason For Exam: Chest Pain PORTABLE CHEST Portable view of the chest obtained at 17:16 hours is compared with 10/18/2009. There are postoperative changes of previous midline sternotomy and coronary artery bypass surgery. No evidence of pneumonia, congestive failure, pleural effusion or pneumothorax identified. IMPRESSION: No acute abnormality is identified in the chest. * MYOGLOBIN (03/01/2010 4:43 PM CDT) MYOGLOBIN, 37Comment: [place] 16 - 97 ng/ml [facility] PLASMA ACCT#[id number], ,,,, CENTER [facility] Specimen Blood specimen (specimen) Performing Organization Address [facility] Ph one Number [facility] CLIA# [id number] [place] [address] - [facility] F[facility] [address] [place] [address] [place] CLIA# [id number] [place] [address] * TROPONIN (03/01/2010 4:43 PM CDT) Pathologist [facility] TROPONIN I 0.04Comment: [facility] 0 - 0.4 ng/ml [id number], ,,,, CENTER [facility] Specimen Blood specimen (specimen) Performing Organization Address City/State/Zipcode Ph one Number [facility] CLIA# [id number] [place] [address] - [place] [address] [place] [address] CLIA# [id number] [place] [address] [facility] [address] [place] [address] * COMPREHENSIVE METABOLIC PANEL (03/01/2010 4:43 PM CDT) [facility] GLUCOSE 209 (H) 70 - 100 mg/dl [facility] BUN 19.0 7 - 20 mg/dl [facility] CREATININE 0.93 0.8 - 1.3 mg/dl [facility] BUN/CREAT RATIO 20.4 (H) 10 - 20 [facility] GFR 88 >90 ml/min [facility] SODIUM 135 135 - 145 mmol/L [facility] POTASSIUM 4.2 3.3 - 4.8 mmol/L [facility] CHLORIDE 102 98 - 107 mmol/L [facility] CO2 28.8 22 - 31 mmol/L [facility] ANION GAP 8 4 - 20 [facility] CALCIUM 9.0 8.5 - 10.1 mg/dl [facility] ALBUMIN 4.3 3.4 - 5.0 g/dl [facility] TOTAL PROTEIN 7.4 6.4 - 8.2 g/dl [facility] GLOBULIN (CALC) 3.1 [facility] ALBUMIN/GLOBULI 1.4 [facility] BILIRUBIN TOTAL 0.2 <1.1 mg/dl [facility] PA [facility] ALKALINE 71 50 - 136 IU/L [facility] PA [facility] AST 25 10 - 40 IU/L [facility] ALT 43Comment: [facility] 25 - 70 IU/L M [facility] ACCT#[id number], ,,,, CENTER [facility] Specimen Blood specimen (specimen) Performing Organization Address City/State/Zipcode Ph one Number [facility] CLIA# [id number] [place] [address] - [place] [address] [facility] CLIA# [id number] [place] [address] [facility] [address] [facility] * CBC WITH DIFFERENTIAL (03/01/2010 4:43 PM CDT) WBC 7.65 3.0 - 10.4 x10E3 [facility] RBC 4.72 4.15 - 5.75 x10E6 [facility] HEMOGLOBIN 13.7 (L) 13.8 - 17.4 g/dL [facility] HEMATOCRIT 39.3 38.6 - 49.4 % [facility] MCV 83.3 79 - 100 fL [facility] PA [facility] MCH 28.9 28 - 34 pg [facility] MCHC 34.7 33 - 36 g/dL [facility] RDW 13.8 12.1 - 14.1 % [facility] PA [facility] PLATELETS 389 148 - 408 x10E3 [facility] PA [facility] MPV 7.0 (L) 7.4 - 10.6 [facility] PA [facility] NEUTROPHILS 65.7 43 - 73 % [facility] LYMPHOCYTES 25.9 19 - 47 % [facility] MONOCYTES 6.1 3 - 9 % [facility] EOSINOPHILS 2.0 0 - 6 % [facility] BASOPHILS 0.3 0 - 1.2 % [facility] NEUTROPHIL 5.03 1.3 - 7.6 x10E3 [facility] LYMPHOCYTE 1.98 0.6 - 4.9 x10E3 [facility] MONOCYTE 0.47 0.1 - 0.9 x10E3 [facility] EOSINOPHIL 0.15 0.0 - 0.2 x10E3 [facility] BASOPHILS 0.02Comment: [place] 0 - 0.1 x10E3 [facility] ABSOLUTE ACCT#[id number], ,,,, CENTER [facility] Specimen Blood specimen (specimen) Performing Organization Address City/[facility] Ph one Number [facility] CLIA# [id number] [place] [address] - [place] [address] [place] [address] [place] CLIA# [id number] [place] [address] * PHENYTOIN LEVEL, TOTAL (03/01/2010 4:43 PM CDT) PHENYTOIN TOTAL 11.0Comment: [place]AB [place]AN 10 - 20 ug/ml [facility] ACCT#[id number], ,,,, CENTER [facility] Specimen Blood specimen (specimen) Performing Organization Address [facility] one Number [facility] CLIA# [id number] GAB [place] [address] - [place] [address] [place] [address] [place] CLIA# [id number] [place] [address] documented in this encounter Visit Diagnoses Diagnosis Other convulsions documented in this encounter Administered Medications Action Date Dose Rate Site Medication Order MAR Action 03/01/2010 5:01 PM CDT 1 mg LORAZEPAM 2 MG/ML INJECTION Given 1 dose, Starting Sat 10 at 1659, Until Sat 10 at 1701, Lee Ann SOSA : Cabinet Override, 03/01/2010 5:01 PM CDT mL SODIUM CHLORIDE 0.9 % SYRINGE Given 1 dose, Starting 03/01/10 at 1659, Until Sat 410 at 1701, Lee Ann BARAHONALL : Cabinet Override, documented in this encounter
--- OUTSIDE RECORDS SUMMARY | 2020-03-24 14:42 | XMS REPORT | Encounter Summary ---
Author Author [facility] Organization [facility] Address Unknown Phone Unavailable Care Team Providers Care Wedding Florist Name Role Phone Shahram Mccallum MD PCP Unavailable Reason for Visit * Reason Comments Follow Up with lab work Encounter Details Care Team Description Date Type Department Shahram Mccallum MD NO ADDRESS ON FILE DM w/o Complication Type I; Other Convulsions; Chronic Airway Obstruction, not Elsewhere Classified; Hyperlipidemia; Anemia; Cor Athrscl-Uns Vessel; Unspecified Essential Hypertension 02/12/2010 [facility] [address] [place] [id number] Social History Date Tobacco Use Types Packs/Day [...] Signs Reading Time Taken Comments Vital Sign 132/72 02/12/2010 9:07 AM CDT Blood Pressure 88 02/12/2010 9:07 AM CDT Pulse - - Temperature - - Respiratory Rate - - Oxygen Saturation - - Inhaled Oxygen Concentration - - Weight - - Height - - Body Mass Index documented in this encounter Progress Notes * Shahram Mccallum MD - 02/12/2010 9:47 AM CDT Subjective: Oliverio Dalton is a [...] of Colonic Polyps V12.72 Current outpatient prescriptions prior to encounter Medication Sig Dispense Refill clopidogrel (PLAVIX) 75 mg Oral Tab Take 1 Tab by mouth daily. 30 Tab 11 zolpidem (AMBIEN) 10 mg Oral tablet Take 1 Tab by mouth nightly as needed fo r Insomnia. ok'd by dr yeh safety and occupational health manager. 30 Tab 0 lorazepam (ATIVAN) 1 mg Oral tablet Take 1 Tab by mouth 2 times daily. ok'd by dr yeh safety and occupational health manager 60 Tab 0 bethanechol (URECHOLINE) 25 mg [...] Caps by mouth daily. 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 30 Cap 5 magnesium oxide 250 mg Oral Tab Take 1 Tab by mouth 3 times daily. levofloxacin (LEVAQUIN) 500 mg Oral Tab Take 1 Tab by mouth daily. 10 Tab 0 loratadine (CLARITIN) 10 mg Oral Tab Take 1 Tab by mouth daily. 30 Tab 5 phenytoin (PHENYTEK) 200 mg Oral Cap Take [...] for P ain. Lab Results Component Value Date/Time HEMOGLOBIN A1C 7.3 02/06/10 7:28 AM HEMOGLOBIN A1C 6.4 05/09/09 7:27 AM HEMOGLOBIN A1C 6.0 02/06/09 8:04 AM LDL CALCULATED 0 06/29/08 3:50 AM LDL CHOLESTEROL, DIRECT 148 02/06/10 7:28 AM CREATININE 0.99 02/06/10 7:28 AM Lab Results Component Value Date/Time CHOLESTEROL 273 02/06/10 7:28 AM CHOLESTEROL 234 08/16/09 7:56 AM CHOLESTEROL 241 05/09/09 7:27 AM HDL 46 02/06/10 7:28 AM HDL 54 08/16/09 7:56 AM HDL 48 05/09/09 7:27 AM LDL CALCULATED 0 06/29/08 3:50 AM LDL CALCULATED 0 04/26/06 5:45 AM LDL CHOLESTEROL, DIRECT 148 02/06/10 7:28 AM LDL CHOLESTEROL, DIRECT 134 08/16/09 7:56 AM LDL CHOLESTEROL, DIRECT 140 05/09/09 7:27 AM TRIGLYCERIDE 573 02/06/10 7:28 AM TRIGLYCERIDE 207 08/16/09 7:56 AM TRIGLYCERIDE 326 05/09/09 7:27 AM ALT 43 02/06/10 7:28 AM AST 19 02/06/10 7:28 AM Lab Results Component Value Date/Time CREATININE 0.99 02/06/10 7:28 AM BUN 23.0 02/06/10 7:28 AM SODIUM 136 02/06/10 7:28 AM POTASSIUM 4.3 02/06/10 7:28 AM CHLORIDE 101 02/06/10 7:28 AM CO2 27.0 02/06/10 7:28 AM GFR 82 02/06/10 7:28 AM Lab Results Component Value Date/Time WBC 7.54 10/19/09 5:25 AM HEMOGLOBIN 11.6 10/19/09 5:25 AM HEMATOCRIT 33.2 10/19/09 5:25 AM PLATELETS 293 10/19/09 5:25 AM MCV 83.7 10/19/09 5:25 AM Lab Results Component Value Date/Time ALT 43 02/06/10 7:28 AM AST 19 02/06/10 7:28 AM ALKALINE PHOSPHATASE 77 02/06/10 7:28 AM BILIRUBIN TOTAL 0.3 02/06/10 7:28 AM HPI: Mr. Dalton complains of the following (by systems): Chest Pain symptoms: none COPD related symtoms: cough, wheezing and some sob with exertion post meals if h e walks.. this is better when he eats smaller meals Diabetes Type II complaints: medication compliance: compliant most of the time , diabetic diet compliance: noncompliant some of the time, home glucose monitori ng: fasting values range 100, nonfasting values range 130-170 Hypertension related symtoms/issues: taking medications as instructed, no side effects of medications, no chest pain on exertion, no dyspnea on exertion, no ed lian no lipid related sxs did have recent seizure that was brief and no further recurrance. Review of Systems: ROS Denies all of the following: Headache Dizziness Chest pain Shortness of breath Bowel changes Bladder changes Pain in muscle or joints: chronic but has been walking more. Has health care coach that walks with he and his new dog Less anxiety and depression Exam/Objective: Normal Exam for Routine Visits: \Blood pressure 132/72, pulse 88. General appearance: chroinc ill appearing, active, alert, cooperative, no distre ss, social, normally nourished, and in no acute distress Lungs: breath sounds equal, clear to auscultation bilaterally, no retractions, n o stridor, normal respiratory effort Heart: regular rate and rhythm, S1, S2 normal, murmur, click, rub, gallop, or a bnormal sounds. Abdomen: soft, non-tender. Bowel sounds normal. No masses, no organomegaly. Ac tive bowel sounds. Extremities: symmetrical non edematous. Sl red R great nail base where has parti al nail removed. Otherwise no acute diabetic foot changes pulses intact, fine to uch generally intact. Assessment and Plan: ASSESSMENT: Encounter Diagnoses Name Primary? DM w/o Complication Type I Other Convulsions Chronic Airway Obstruction, not Elsewhere Classified Hyperlipidemia Anemia Cor Athrscl-Uns Vessel Unspecified Essential Hypertension PLAN: Orders Placed This Encounter Lipid panel Comprehensive metabolic panel Hemoglobin a1c discussed DIET and exercise TAC for toenail If lab not better in 3 mo will need med changes Bring list of sugars and BPs Appropriate medications prescribed (see detailed AVS). Appropriate patient instructions provided (see detailed AVS). Follow-up as I have indicated. Medications and options explained to include common side effects. Understanding of medications, course, diagnosis, and expectations were expressed by patient/g uardian. documented in this encounter Plan of Treatment Not on filedocumented as of this encounter Results * HEMOGLOBIN A1C (05/08/2010 7:50 AM CDT) HEMOGLOBIN A1C 6.7 (H) 0 - 6.0 % [facility] GLUCOSE, MEAN 146Comment: [facility] mg/dl [facility] BLOOD ACCT#[id number], ,,,, [facility] Specimen Blood specimen (specimen) Performing Organization Address City/[facility] [place] Ph one Number [facility] CLIA# [id number] GAB JEFFERSON [address] - [place] MCK[place] [address] [facility] CLIA# [id number] [place] Leonides MCKIN[place] S [address] [facility] [address] [facility] [place] * COMPREHENSIVE METABOLIC PANEL (05/08/2010 7:50 AM CDT) GLUCOSE 152 (H) 70 - 100 mg/dl [facility] BUN 22.0 (H) 7 - 20 mg/dl [facility] CREATININE 0.93 0.8 - 1.3 mg/dl [facility] BUN/CREAT RATIO 23.7 (H) 10 - 20 [facility] GFR 88 >90 ml/min [facility] SODIUM 139 135 - 145 mmol/L [facility] POTASSIUM 4.5 3.3 - 4.8 mmol/L [facility] CHLORIDE 104 98 - 107 mmol/L [facility] CO2 24.1 22 - 31 mmol/L [facility] ANION GAP 15 4 - 20 [facility] CALCIUM 8.9 8.5 - 10.1 mg/dl [facility] ALBUMIN 4.2 3.4 - 5.0 g/dl [facility] TOTAL PROTEIN 7.0 6.4 - 8.2 g/dl [facility] GLOBULIN (CALC) 2.8 [facility] ALBUMIN/GLOBULI 1.5 [facility] BILIRUBIN TOTAL 0.2 <1.1 mg/dl [facility] ALKALINE 48 (L) 50 - 136 IU/L [facility] PHOSPHATASE [facility] AST 17 10 - 40 IU/L [facility] ALT 34Comment: [facility] 25 - 70 IU/L [facility] ACCT#[id number], ,,,, CENTER [place] [facility] Specimen Blood specimen (specimen) Performing Organization Address City/State/Zipcode Ph one Number [facility] CLIA# [id number] GAB JEFF[place] [address] - [place] FAY[place] [address] [place] [address] PA MARTINEZ# [id number] [place] Leonides MCKINNEY [address] * LIPID PANEL (05/08/2010 7:50 AM CDT) [facility] CHOLESTEROL 225 (H) 140 - 200 mg/dl [facility] TRIGLYCERIDE 363 (H) 0 - 199 mg/dl [facility] Comment: [facility] TRIGLYCERIDES NORMAL LESS THAN 150 mg/dl BORDERLINE HIGH 150 - 199 mg/dl HIGH 200 - 499 mg/dl VERY HIGH GREATER THAN OR = 500 mg/dl HDL 48 27 - 67 mg/dl [facility] LDL 130 <130 mg/dl [facility] CHOLESTEROL, Comment: [facility] DIRECT [facility] LAB RISK CATEGORY LDL GOAL High risk: <100 mg/dl CHD or CHD risk equivalents (optional goal: <70 mg/dl) (10-year risk > 20%) Moderately high risk <130 mg/dl 2+ risk factors (10-year risk 10% to 20%) Moderate risk: <130 mg/dl 2+ risk factors (10-year risk < 10%) Lower risk: <160 mg/dl 0-1 risk factor [facility] ACCT#[id number], ,,,, Specimen Blood specimen (specimen) Performing Organization Address City/State/Zipcode Ph one Number [facility] CLIA# [id number] GAB JEFF[place] [address] - [place] [address] [place] [address] MICHELLE# [id number] Leonides JEFFERSON [address] documented in this encounter Visit Diagnoses Diagnosis Type I (juvenile type) diabetes mellitu s without mention of complication, not stated as uncontrolled Other convulsions Chronic airway obstruction, not elsewhe re classified Hyperlipidemia Other and unspecified hyperlipidemia Anemia Anemia, unspecified Coronary atherosclerosis of unspecified type of vessel, yurok or graft Unspecified essential hypertension documented in this encounter
--- OUTSIDE RECORDS SUMMARY | 2020-03-24 14:42 | XMS REPORT | Encounter Summary ---
Author Author [facility] Organization [facility] Address Unknown Phone Unavailable Care Team Providers Care Shop Clerk Name Role Phone Shahram Mccallum MD PCP Unavailable Reason for Visit * Reason Comments Question Patient would like toe look ed at by wound care nurse Encounter Details Care Team Description Date Type Department Rosalinda Bal Question (Patient would like toe looked at by wound care nurse) 03/14/2010 Telephone [facility] [address] [place] [address] Social History Date Tobacco Use [...] * Telephone Encounter - Rosalinda Bal - 03/14/2010 4:[address] Mccallum have wound care nurse see when Home Health goes out. Home health notified and they will call Cindy. documented in this encounter Plan of Treatment Not on filedocumented as of this encounter Visit Diagnoses Not on filedocumented in this encounter
--- OUTSIDE RECORDS SUMMARY | 2020-03-24 14:42 | XMS REPORT | Encounter Summary ---
Author Author [facility] Organization [facility] Address Unknown Phone Unavailable Care Team Providers Care Roll Weigher Name Role Phone Shahram Mccallum MD PCP Unavailable Reason for Visit * Reason Comments Medication Refill refill miralax Encounter Details Care Team Description Date Type Department Fadumo Flores 02/20/[address] [phone] Social History Date Tobacco Use [...]
--- OUTSIDE RECORDS SUMMARY | 2020-03-24 14:42 | XMS REPORT | Encounter Summary ---
Author Author [facility] Organization [facility] Address Unknown Phone Unavailable Care Team Providers Care Sanitation Tank Washer Name Role Phone Shahram Mccallum MD PCP Unavailable Reason for Visit * Reason Comments Shortness of Breath Chronic issue. States hurt s his chest to take a deep breath. Reportedly told HH nurse about this and she report edly told him to come to the ER. Chest Pain Chronis issue, seems to be more on the rt side than left per pt. Encounter Details Care Team Description Date Type Department Kentrell Severino MD NO ADDRESS ON FILE Chest Wall Pain 04/09/2010 Emergency [facility] Emergency Department [address] [id number] Social History Date Tobacco Use [...] Signs Reading Time Taken Comments Vital Sign 117/64 04/09/2010 1:15 PM CDT Blood Pressure 62 04/09/2010 1:15 PM CDT Pulse 36.8 C (98.3 F) 04/09/2010 12:19 PM CDT Temperature 16 04/09/2010 1:15 PM CDT Respiratory Rate 98% 04/09/2010 1:15 PM CDT Oxygen Saturation - - Inhaled Oxygen Concentration 99.8 kg (220 lb) 04/09/2010 12:19 PM CDT Weight 167.6 cm (5' 6") 04/09/2010 12:19 PM CDT Height 35.51 04/09/2010 12:19 PM CDT Body Mass Index documented in [...] needed for Insomnia. ok'd by dr yeh primary care nurse practitioner. 02/19/2010 03/03/2011 loratadine (CLARITIN) 10 Take 1 [...] Procedure Notes * Johnnie Duque Physician - 04/11/2010 10:51 AM CDT Associated Order(s): EKG 12-LEAD; EKG 12-LEAD * David Ferrer MD - 04/10/2010 11:28 AM CDT Associated Order(s): EKG 12-LEAD; EKG 12-LEAD [facility]. [address] [place] [address] EKG OLIVERIO DALTON [id number] 04/09/10 at 1222. The rhythm is regular, sinus in origin with a rate of 62 beats per minute. Limb leads show low voltage. R wave transition is delayed across the chest. T waves are flattened to inverted in lateral limb and chest leads. Compared with previous tracing dated March 01 2010, electrical axis has shifted. Complexes are similar. R wave transition occurs earlier across the chest previously. Diagnosis: 1) Sinus rhythm, rate 62 beats per minute. 2) Low voltage limb leads. 3) Clockwise rotation of horizontal electrical axis. 4) Nonspecific T wave changes. Dictated by Debbie. Dictated by: EKG DD 04/10/10 TD 04/10/10/LRG EKG REPORT # [id number] ORDER # * Aok Scanning, [facility] Physician - 04/10/2010 11:14 AM CDT Associated Order(s): TELEMETRY REPORT; TELEMETRY REPORT documented in this encounter ED Notes * Aok Scanning, Johnnie Physician - 04/10/2010 9:24 AM CDT * Kristina Keller RN - 04/09/2010 1:[address] Severino back to room to visit with pt concerning lab results. Pt is to be di scharged home. * Kristina Keller RN - 04/09/2010 1:16 PM CDT CXR "nothing acute" per Dr. Qureshi. Dr. Severino aware. * Kristina Keller RN - 04/09/2010 1:02 PM CDT Appears to be sleeping at this time. Resp even & unlabored. No obvious distress noted. Waiting on lab results. * Kentrell Severino MD - 04/09/2010 12:38 PM CDT HISTORY OF PRESENT ILLNESS Oliverio Dalton, a 59 y.o. male presents to the ED with a Chief Complaint of Sh ortness of Breath and Chest Pain Since yesterday has been having left lateral chest pain, most of the time, now r esolved. Hurts to deep breath, and he thought it was probably chest wall pain as he has had before, but home health wanted him to come to ER to be checked. Patient is a 59 y.o. male presenting with chest pain. The history is provided by the patient. Chest Pain This is a recurrent problem. The current episode started yesterday. The problem occurs constantly. The problem has been resolved. The pain is associated with br eathing and movement. The pain is present in the lateral region (left lateral ch est and under the arm). The pain is at a severity of 3/10. The quality of the pa in is described as pleuritic. The pain does not radiate. The symptoms are aggrav ated by deep breathing and certain positions. Associated symptoms include shortn ess of breath. Pertinent negatives include no diaphoresis, no fever, no exertion al chest pressure, no orthopnea, no abdominal pain, no nausea, no vomiting, no h eadaches, no back pain, no dizziness, no cough, no hemoptysis and no sputum prod uction. He has tried nitroglycerin (NTG may have helped some, not sure. ) for th e symptoms. REVIEW OF SYSTEMS Review of Systems Constitutional: Negative for fever, chills and diaphoresis. HENT: Negative for congestion, sore throat and ear discharge. Respiratory: Positive for shortness of breath. Negative for cough, hemoptysis an d sputum production. Cardiovascular: Positive for chest pain. Negative for orthopnea and leg swelling . Gastrointestinal: Negative for nausea, vomiting, abdominal pain and blood in sto ol. Genitourinary: Negative for dysuria and frequency. Musculoskeletal: Negative for back pain and joint pain. Skin: Negative for rash. Neurological: Negative for dizziness, tingling, focal weakness and headaches. PAST MEDICAL HISTORY REVIEWED Past Medical History Diagnosis Date Wrist Sprain 08/10 Rt. Contusion, Back 08/16/03 Fall Cataract Unspecified Disease of Respiratory System Glaucoma Asthma Diabetes Seizure Disorder Unspecified Disorder of Lipoid Metabolism Coronary Artery Disease Unspecified Chronic Ischemic Heart Disease Unspecified Essential Hypertension Past Surgical History Procedure Date Hx surgical [...] 02/01/2009 COLONOSCOPY performed by BEULAH MOORE at [facility] OR hernia repair 1988 And age 4 Hx heart catheterization 04/10 With angioplasty, 2 stents Hx lap cholecystectomy 05/17/07 Family History Problem Relation Other Mother Blood pressure Diabetes Mother Respiratory Disease Mother Asthma Mother Other Sister Blood pressure Diabetes Sister Respiratory Disease Sister Heart Disease Sister Asthma Sister Lung Cancer Brother Seizures Brother Other Father "brain anuerysm" Healthy Daughter Healthy Son Healthy Daughter Healthy Daughter Healthy Son Healthy Son Healthy Son Healthy Son History Social History Main Topics Tobacco Use: Quit Quit date: 03/08/1995 Alcohol Use: No Drug Use: No Sexually Active: Not Currently ALLERGIES Valium, Piperacillin-tazobactam, Phenobarbital, Terazosin and Codeine HOME MEDICATIONS Patient's Home Medications New Prescriptions for this Encounter Current Home Medications ACCU-CHEK ACTIVE TEST STRP by See Admin Instructions route 2 times daily. In the am & pm prn AEROBID IN Take 2 Puffs by inhalation 3 times daily. ALBUTEROL IN Take 2 Puffs by inhalation every 6 hours as needed ALTACE 10 MG ORAL CAP Take 10 mg by mouth daily. At noon ASPIRIN EC 81 MG ORAL TBEC Take [...] Cap by mouth daily before break fast. FLAXSEED OIL 1,000 MG ORAL CAP Take 1000 mg by mouth 3 times daily. FLONASE 50 MCG/ACTUATION BOTH NOSTRIL SPSN Administer 2 Sprays in each nostr il daily. FLUOXETINE (PROZAC) 20 MG ORAL CAP Take 2 Caps by mouth daily. INSULIN GLARGINE (LANTUS) 100 UNIT/ML SUBCUT SOLN Inject by subcutaneous in jection. 20 units at hs. ISOSORBIDE MONONITRATE SR 24 HOUR (IMDUR) 60 [...] daily. MULTIVITAMIN PO Take 1 Tab by mouth. Daily at noon NITROGLYCERIN (NITROSTAT) 0.[address] 1 Tab under tongue ev len 5 minutes as needed for Chest Pain. OXAPROZIN (DAYPRO) 600 MG ORAL TABLET Take 1 Tab by mouth daily. PHENYTOIN (PHENYTEK) 200 MG ORAL CAP Take 1 Cap by mouth 2 times daily. POLYETHYLENE GLYCOL 3350 (MIRALAX) 17 GRAM/DOSE ORAL POWD Take 1 SCOOP by mo uth daily. Dissolve in 8 ounces of fluid and drink entire liquid SIMVASTATIN (ZOCOR) 80 MG ORAL TAB Take 1 Tab by mouth daily at bedtime. TAMSULOSIN SR 24 HOUR (FLOMAX) 0.4 MG ORAL CAPSULE Take 1 Cap by mouth daily . 30 min. After supper TRICOR 145 MG ORAL TAB Take 145 mg by mouth daily with supper. TYLENOL 325 MG ORAL TAB Take 1-2 Tabs by mouth every 4 hours as needed for P ain. ZETIA 10 MG ORAL TAB Take 10 mg by mouth daily at bedtime. ZOLPIDEM (AMBIEN) 10 MG ORAL TABLET Take 1 Tab by mouth nightly as needed fo r Insomnia. ok'd by dr yeh primary care nurse practitioner. Medications Modified during this Encounter Modified Medication Previous Medication PIOGLITAZONE (ACTOS) 30 MG ORAL TABLET pioglitazone (ACTOS) 30 mg Oral Tab Take 1 Tab by mouth daily. Take 1 Tab by mouth daily. Medications Discontinued during this Encounter PHYSICAL EXAM Initial Vitals BP 04/09/10 1219 132/80 mmHg Pulse 04/09/10 1219 63 Resp 04/09/10 1219 18 Temp 04/09/10 1219 98.3 F (36.8 C) Temp src 04/09/10 1219 Oral SpO2 04/09/10 1219 97 % Physical Exam Nursing note and [...] no distension and no mass. No tenderness. Musculoskeletal: Normal range of motion. He exhibits no edema. Lymphadenopathy: He has no cervical adenopathy. Neurological: He is alert and oriented to person, place, and time. No cranial ne rve deficit. Skin: Skin is warm and dry. No rash noted. Psychiatric: He has a normal mood and affect. His behavior is normal. Coding DIAGNOSTICS LAB: Results for orders placed during the hospital encounter of 04/09/10 (from the [facility] 24 hour(s)) COMPREHENSIVE METABOLIC PANEL Component Value Range GLUCOSE 154 (*) 70-100 (mg/dl) BUN 19.0 7-20 (mg/dl) CREATININE 0.93 0.8-1.3 (mg/dl) BUN/CREAT RATIO 20.4 (*) 10-20 GFR 88 >90 (ml/min) SODIUM 133 (*) 135-145 (mmol/L) POTASSIUM 4.2 3.3-4.8 (mmol/L) CHLORIDE 100 98-107 (mmol/L) CO2 25.9 22-31 (mmol/L) ANION GAP 11 4-20 CALCIUM 8.7 8.5-10.1 (mg/dl) ALBUMIN 4.0 3.4-5.0 (g/dl) TOTAL PROTEIN 6.8 6.4-8.2 (g/dl) GLOBULIN (CALC) 2.8 ALBUMIN/GLOBULIN RATIO 1.4 BILIRUBIN TOTAL 0.2 <1.1 (mg/dl) ALKALINE PHOSPHATASE 61 50-136 (IU/L) AST 20 10-40 (IU/L) ALT 34 25-70 (IU/L) MYOGLOBIN Component Value Range MYOGLOBIN, PLASMA 30 16-97 (ng/ml) TROPONIN Component Value Range TROPONIN I 0.06 0-0.4 (ng/ml) CBC WITH DIFFERENTIAL Component Value Range WBC 6.59 3.0-10.4 (x10E3) RBC 4.41 4.15-5.75 (x10E6) HEMOGLOBIN 12.8 (*) 13.8-17.4 (g/dL) HEMATOCRIT 37.2 (*) 38.6-49.4 (%) MCV 84.3 79-100 (fL) MCH 29.1 28-34 (pg) MCHC 34.6 33-36 (g/dL) RDW 13.5 12.1-14.1 (%) PLATELETS 303 148-408 (x10E3) MPV 7.0 (*) 7.4-10.6 (fL) NEUTROPHILS 63.8 43-73 (%) LYMPHOCYTES 25.5 19-47 (%) MONOCYTES 6.5 3-9 (%) EOSINOPHILS 4.1 0-6 (%) BASOPHILS 0.2 0-1.2 (%) NEUTROPHIL ABSOLUTE 4.20 1.3-7.6 (x10E3) LYMPHOCYTE ABSOLUTE 1.68 0.6-4.9 (x10E3) MONOCYTE ABSOLUTE 0.43 0.1-0.9 (x10E3) EOSINOPHIL ABSOLUTE 0.27 (*) 0.0-0.2 (x10E3) BASOPHILS ABSOLUTE 0.01 0-0.1 (x10E3) RADIOLOGY: XR CHEST PA OR AP (Results Pending) neg EKG: no acute changes PROCEDURES MEDICAL DECISION MAKING AND PLAN OF CARE Last vitals BP 123/64 | Pulse 64 | Temp(Src) 98.3 F (36.8 C) (Oral) | Resp 16 | Ht 5' 6" (1.676 m) | Wt 99.791 kg | SpO2 98% CLINICAL IMPRESSION Encounter Diagnoses Code Name Primary? 786.52Q Chest Wall Pain CASE DISCUSSED PATIENT COUNSELING Diagnostics reviewed and questions answered. Diagnosis, treatment options and p brianna of care discussed with understanding verbalized. DISPOSITION, EDUCATION AND MEDICATION RECONCILIATION Medications reconciled. See after visit summary for patient education on discha rged patients. Neg enzymes. Pain is most suggestive of chest wall pain, a problem patient has h ad before. Ok to go home. Return if increased problems. * Kristina Keller RN - 04/09/2010 12:35 PM CDT L.E: 1220: Pt exhibited no dyspnea on exertion when he ambulated to ER 5. * Kristina Keller RN - 04/09/2010 12:[address] Severino to room to visit with pt. * Kristina Keller RN - 04/09/2010 12:26 PM CDT Pt ambulatory to ER 5 in no obvious distress. Reports that when the nurse ca me to see him, he told her that last night he had some chest pain and that it hu rt to take a deep breath. Pt was reportedly told by Nurse to come to the ER . Pt states that he did not start getting short of breath until after being outsid e in the heat for about 5 minutes. Pt reports that shortness of breath increases when he tries to take a deep breat h, causing the pain in the rt side of his chest to increase. Dr. Severino aware of pt with no orders received. documented in this encounter Plan of Treatment Not on filedocumented as of this encounter Procedures Comments Procedure Name Priority Date/Time Associated Diag nosis EKG 12-LEAD Stat 04/11/2010 10:51 AM CDT TELEMETRY REPORT 04/10/2010 11:14 AM CDT XR CHEST PA OR AP 1 VW Stat 04/09/2010 12:55 PM CDT CBC WITH DIFFERENTIAL Stat 04/09/2010 12:45 PM CDT TROPONIN Stat 04/09/2010 12:45 PM CDT MYOGLOBIN Stat 04/09/2010 12:45 PM CDT COMPREHENSIVE METABOLIC Stat 04/09/2010 PANEL 12:45 PM CDT POC GLUCOSE Routine 04/09/2010 12:26 PM CDT documented in this encounter Results * EKG 12-LEAD (04/11/2010 10:51 AM CDT) Narrative Performed At This result has an attachment that is n ot available. Procedure Note David Bernard MD - 04/10/2010 11:28 AM CDT [facility]. [address] [place] [address]. [place], [place] [address] EKG OLIVERIO DALTON [id number] 04/09/10 at 1222. The rhythm is regular, sinus in origin with a rate of 62 beats per minute. Limb leads show low voltage. R wave transition is delayed across the chest. T waves are flattened to inverted in lateral limb and chest leads. Compared with previous tracing dated March 01 2010, electrical axis has shifted. Complexes are similar. R wave transition occurs earlier across the chest previously. Diagnosis: 1) Sinus rhythm, rate 62 beats per minute. 2) Low voltage limb leads. 3) Clockwise rotation of horizontal electrical axis. 4) Nonspecific T wave changes. Dictated by S.V.W. Dictated by: EKG DD 04/10/10 TD 04/10/10/LRG EKG REPORT # [id number] ORDER # Transcriptions 04/11/2010 10:51 AM CDT * TELEMETRY REPORT (04/10/2010 11:14 AM CDT) Narrative Performed At This result has an attachment that is n ot available. Procedure Note 04/10/2010 11:14 AM CDT * XR CHEST PA OR AP (04/09/2010 12:55 PM CDT) Specimen Impressions Performed At : No acute cardiopulmonary disease. Narrative Performed At PORTABLE CHEST X-RAY Done April 09, 2010 compared to prior exa m of March 01. History: Chest pain. The patient is status post median sternotomy. The cardiac silhouette and pulmonary va scularity are normal. No infiltrates or masses are seen. No pn eumothorax. Procedure Note Oliverio Muhammad MD - 04/09/2010 2:03 PM CDT PORTABLE CHEST X-RAY Done April 09, 2010 compared to prior exam of March 01. History: Chest pain. The patient is status post median sternotomy. The cardiac silhouette and pulmonary vascularity are normal. No infiltrates or masses are seen. No pneumothorax. IMPRESSION: No acute cardiopulmonary disease. * CBC WITH DIFFERENTIAL (04/09/2010 12:45 PM CDT) WBC 6.59 3.0 - 10.4 x10E3 [facility] RBC 4.41 4.15 - 5.75 x10E6 [facility] HEMOGLOBIN 12.8 (L) 13.8 - 17.4 g/dL [facility] HEMATOCRIT 37.2 (L) 38.6 - 49.4 % [facility] MCV 84.3 79 - 100 fL [facility] MCH 29.1 28 - 34 pg [facility] MCHC 34.6 33 - 36 g/dL [facility] RDW 13.5 12.1 - 14.1 % [facility] PLATELETS 303 148 - 408 x10E3 [facility] MPV 7.0 (L) 7.4 - 10.6 fL [facility] NEUTROPHILS 63.8 43 - 73 % [facility] LYMPHOCYTES 25.5 19 - 47 % [facility] MONOCYTES 6.5 3 - 9 % [facility] EOSINOPHILS 4.1 0 - 6 % [facility] BASOPHILS 0.2 0 - 1.2 % [facility] NEUTROPHIL 4.20 1.3 - 7.6 x10E3 [facility] LYMPHOCYTE 1.68 0.6 - 4.9 x10E3 [facility] MONOCYTE 0.43 0.1 - 0.9 x10E3 [facility] EOSINOPHIL 0.27 (H) 0.0 - 0.2 x10E3 [facility] BASOPHILS 0.01Comment: [facility] 0 - 0.1 x10E3 [facility] ACCT#[id number], ,,,, [facility] Specimen Blood specimen (specimen) Performing Organization Address City/State/Zipcode Ph one Number [facility] CLIA# [id number] [place] [address] [address] [place] [address] [place] [address] CLIA# [id number] [place] [address] [address] * TROPONIN (04/09/2010 12:45 PM CDT) TROPONIN I 0.06Comment: [facility] [place] 0 - 0.4 ng/ml [facility] ACCT#[id number], ,,,, [place] [facility] Specimen Blood specimen (specimen) Performing Organization Address [facility] Ph one Number [facility] CLIA# [id number] [place] [address] [address] [place] [address] [place] [address] [place] CLIA# [id number] [place] [address] [facility] [address] [place] [address] * MYOGLOBIN (04/09/2010 12:45 PM CDT) Pathologist [facility] MYOGLOBIN, 30Comment: [facility] [place] 16 - 97 ng/ml [facility] ACCT#[id number], ,,,, [place] [facility] Specimen Blood specimen (specimen) Performing Organization Address [facility] one Number [facility] CLIA# [id number] [place] [address] - [place] [address] [place] [address] [place] CLIA# [id number] [place] [address] [facility] [address] [place] [address] * COMPREHENSIVE METABOLIC PANEL (04/09/2010 12:45 PM CDT) Pathologist [facility] GLUCOSE 154 (H) 70 - 100 mg/dl [facility] BUN 19.0 7 - 20 mg/dl [facility] CREATININE 0.93 0.8 - 1.3 mg/dl [facility] BUN/CREAT RATIO 20.4 (H) 10 - 20 [facility] GFR 88 >90 ml/min [facility] SODIUM 133 (L) 135 - 145 mmol/L [facility] POTASSIUM 4.2 3.3 - 4.8 mmol/L [facility] CHLORIDE 100 98 - 107 mmol/L [facility] CO2 25.9 22 - 31 mmol/L [facility] ANION GAP 11 4 - 20 [facility] CALCIUM 8.7 8.5 - 10.1 mg/dl [facility] ALBUMIN 4.0 3.4 - 5.0 g/dl [facility] TOTAL PROTEIN 6.8 6.4 - 8.2 g/dl [facility] GLOBULIN (CALC) 2.8 [facility] ALBUMIN/GLOBULI 1.4 [facility] N RATIO [place] [facility] BILIRUBIN TOTAL 0.2 <1.1 mg/dl [facility] ALKALINE 61 50 - 136 IU/L [facility] PHOSPHATASE [place] [facility] AST 20 10 - 40 IU/L [facility] ALT 34Comment: [facility] 25 - 70 IU/L [facility] ACCT#[id number], ,,,, [facility] Specimen Blood specimen (specimen) Performing Organization Address City/[facility] Ph one Number [facility] CLIA# [id number] [place], [place] [address] - [address] CLIA# [id number] [place] [address] [facility] [address] [place] [address] * POC GLUCOSE (04/09/2010 12:26 PM CDT) POC GLUCOSE 152 (H)Comment: Natasha 70 - 110 mg/dl [place], Point of Care CENTER [facility] Kacey,,,, [facility] POC GLUCOSE 152 (H) 70 - 110 mg/dl [facility] Specimen Performing Organization Address City/[facility] Ph one Number [facility] CLIA# [id number] [place], [place] [address] - [address] [place] CLIA# [id number] [place] [address] [facility] [address] [place] [address] documented in this encounter Visit Diagnoses Diagnosis Chest wall pain Painful respiration documented in this encounter
--- OUTSIDE RECORDS SUMMARY | 2020-03-24 14:43 | XMS REPORT | Encounter Summary ---
Author Author [facility] Organization [facility] Address Unknown Phone Unavailable Care Team Providers Care Buzzsaw Operator Name Role Phone Shahram Mccallum MD PCP Unavailable Encounter Details Care Team Description Date Type Department Shahram Mccallum MD NO ADDRESS ON FILE 10/30/2009 Abstract [facility] Primar y Care [place] [address] [place] [id number] Social History Date Tobacco Use Types Packs/Day [...]
--- OUTSIDE RECORDS SUMMARY | 2020-03-24 14:43 | XMS REPORT | Encounter Summary ---
Author Author [facility] Organization [facility] Address Unknown Phone Unavailable Care Team Providers Care Inspector Hairspring Name Role Phone Shahram Mccallum MD PCP Unavailable Reason for Visit * Reason Comments Medication Refill Encounter Details Care Team Description Date Type Department Shahram Mccallum MD NO ADDRESS ON FILE 12/25/2009 Refill [facility] Primar y Care [address] [phone] Social History Date Tobacco Use Types Packs/Day [...]
--- OUTSIDE RECORDS SUMMARY | 2020-03-24 14:43 | XMS REPORT | Encounter Summary ---
Author Author [facility] Organization [facility] Address Unknown Phone Unavailable Care Team Providers Care Link Machine Operator Name Role Phone Shahram Mccallum MD PCP Unavailable Encounter Details Care Team Description Date Type Department Shahram Mccallum MD NO ADDRESS ON FILE [facility], Lab Schedule 10/17/2009 Hospital [facility] General Encounter Laboratory Services [address] [phone] Social History Date Tobacco Use [...] Drop in both eyes 2 times daily. 08/21/2009 02/19/2010 loratadine (CLARITIN) 10 Take 1 Tab by 30 Tab 5 mg Oral Tab mouth daily. 08/07/2009 10/30/2009 zolpidem (AMBIEN) 10 mg Take 1 Tab by 30 Tab 2 Oral Tab mouth nightly as needed for Insomnia. 08/07/2009 04/23/2010 phenytoin (PHENYTEK) 200 Take 1 Cap by 60 Cap 5 mg Oral Cap mouth 2 times daily. 07/31/2009 01/22/2010 bethanechol (URECHOLINE) Take 1 Tab by 120 Tab 5 25 mg Oral Tab mouth 4 times daily. 07/31/2009 01/22/2010 oxaprozin (DAYPRO) 600 mg Take 1 Tab by 30 Tab 5 Oral Tab mouth daily. 07/24/2009 01/15/2010 tamsulosin SR 24 hour Take 1 Cap by 30 Cap 5 (FLOMAX) 0.4 mg Oral Cp24 mouth daily. 30 min. After supper 06/26/2009 12/25/2009 isosorbide mononitrate Take 1 Tab by 60 Tab 5 (IMDUR) 60 mg Oral Tb24 mouth 2 times daily. 04/18/2009 04/09/2010 pioglitazone (ACTOS) 30 Take 1 Tab by 30 Tab 11 mg Oral Tab mouth daily. 02/13/2009 02/04/2010 clopidogrel (PLAVIX) 75 Take 1 Tab by 30 Tab 11 mg Oral Tab mouth daily. 10/30/2009 PROZAC 40 mg Oral Cap Take 40 mg by 0 mouth daily. 01/23/2009 08/04/2011 simvastatin (ZOCOR) 80 mg Take 1 Tab by 30 Tab 5 Oral Tab mouth daily at bedtime. 01/07/2009 12/11/2009 esomeprazole (NEXIUM) 40 Take 1 Cap by 30 Cap 11 mg Oral CpDR mouth daily before a meal. 03/15/2012 FLONASE 50 mcg/Actuation Administer 2 0 [...] Tab by 0 mouth daily with lunch. 12/29/2007 10/18/2009 Tcfeiae-Zzrqkgdsj-Wxwd Take by mouth 0 Oral Tab 2 times daily. 02/14/2008 08/30/2012 ACCU-CHEK ACTIVE TEST by See Admin 0 Strp Instructions route 2 times daily. In the am & pm prn 02/14/2008 10/30/2009 TOPROL XL PO Take 25 mg by 0 mouth daily. 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 PLASTER MECHANIC documented in this encounter Results * URINALYSIS WITH REFLEX CULTURE (10/17/2009 11:10 AM PLASTER MECHANIC) GLUCOSE UA Trace Negative mg/dl [facility] BILIRUBIN UA Negative Negative [facility] KETONES UA Negative Negative mg/dl [facility] SPECIFIC 1.020 [facility] GRAVITY [facility] [place] [facility] PH UA 7.5 [facility] PROTEIN UA Negative Negative mg/dl [facility] UROBILINOGEN UA 0.2 0.2 - 1.0 EU/dl [facility] NITRITE UA Negative Negative [facility] BLOOD UA Large (H) Negative [facility] LEUKOCYTE Negative Negative [facility] ESTERASE [facility] [place] [facility] WBC UA 2-5 0 - 5 /HPF [facility] RBC UA GREATER THAN 50 (H) 0 - 2 /HPF [facility] EPITHELIAL Neg [facility] CELLS, URINE [place] [facility] WBC CLUMPS Neg Negative /LPF [facility] CASTS, URINE Neg 0-4 Hyaline /LPF [facility] CRYSTALS, URINE 1+ [facility] CRYSTALS, URINE Amorph PO4 [facility] BACTERIA UA NEG NEG [facility] COMMENT, URINE Light MucousComment: [facility] ACCT#[id number], ,,,, [facility] Specimen Urine, clean catch Performing Organization Address City/State/Zipcode Ph one Number INTERFACE SYSTEM [facility] CLIA# [id number] [place] [address] [facility] [address] [facility] documented in this encounter Visit Diagnoses Diagnosis Dysuria documented in this encounter
--- OUTSIDE RECORDS SUMMARY | 2020-03-24 14:43 | XMS REPORT | Encounter Summary ---
Author Author [facility] Organization [facility] Address Unknown Phone Unavailable Care Team Providers Care Space Officer Name Role Phone Shahram Mccallum MD PCP Unavailable Reason for Visit * Reason Comments Toe Pain 2 nd toe left foot red and painful Encounter Details Care Team Description Date Type Department Shahram Mccallum MD NO ADDRESS ON FILE Toe Pain; Other Convulsions 01/14/2010 Office Visit [facility] [address] [place] [address] Social History Date Tobacco Use [...] Reading Time Taken Comments Vital Sign 124/68 01/14/2010 2:52 PM LAMPS TESTER AND INSPECTOR Blood Pressure 68 01/14/2010 2:52 PM LAMPS TESTER AND INSPECTOR Pulse - - Temperature 16 01/14/2010 2:52 PM LAMPS TESTER AND INSPECTOR Respiratory Rate - - Oxygen Saturation - - Inhaled Oxygen Concentration - - Weight - - Height - - Body Mass Index documented in this encounter Progress Notes * Shahram Mccallum MD - 01/19/2010 5:29 PM CDT Subjective: Oliverio Dalton is a [...] prior to encounter Medication Sig Dispense Refill nitroglycerin (NITROSTAT) 0.[address] 1 Tab under tongue ev len 5 minutes as needed for Chest Pain. 25 Tab prn zolpidem (AMBIEN) 10 mg Oral tablet Take 1 Tab by mouth nightly as needed fo r Insomnia. ok'd by dr yeh drone software development engineer. 30 Tab 0 isosorbide mononitrate SR 24 hour (IMDUR) 60 mg Oral tablet Take 1 Tab by mo uth 2 times daily. 60 Tab 11 esomeprazole (NEXIUM) 40 mg Oral CpDR Take 1 Cap by mouth daily before break fast. 30 Cap 11 lorazepam (ATIVAN) 1 mg Oral tablet Take 1 Tab by mouth 2 times daily. 60 T ab 0 metoprolol succinate ER 24 hour (TOPROL XL) 25 mg Oral tablet Take 1 Tab by mouth daily. 30 Tab 5 fluoxetine (PROZAC) 20 mg Oral Cap Take 2 Caps by mouth daily. 60 Cap 5 phenytoin (DILANTIN) 100 mg Oral Cap Take 1 Cap by mouth daily snow blower . 30 Cap 5 magnesium oxide 250 [...] mouth 2 times daily. 60 Cap 5 bethanechol (URECHOLINE) 25 mg Oral Tab Take 1 Tab by mouth 4 times daily. 120 Tab 5 oxaprozin (DAYPRO) 600 mg Oral Tab Take 1 Tab by mouth daily. 30 Tab 5 pioglitazone (ACTOS) 30 mg Oral Tab Take 1 Tab by mouth daily. 30 Tab 11 HYDROCODONE BIT/ACETAMINOPHEN (HYDROCODONE-ACETAMINOPHEN) 7.5-500 mg Oral Ta b Take 1 Tab by mouth every 4 hours as needed for Pain. 20 Tab None clopidogrel (PLAVIX) 75 mg Oral Tab Take [...] of the following (by systems): Arthritis symptoms: c/o pain 2nd toe R foot. denies trauma but possibly rubs on shoe. no fever or chills had recent mild recurrent seizure although no post ictal recovery time discovery described. Review of Systems: MARA Denies all of the following: Headache Dizziness Chest pain Bowel changes Bladder changes Pain in muscle or joints Exam/Objective: Normal Exam for Routine Visits: \Blood pressure 124/68, pulse 68, resp. rate 16. General appearance:chroninc ill appearing, active, alert, cooperative, no distre [...] tive bowel sounds. Extremities: symmetrical non edematous. Ecchymosis base of nail 2nd toe R foot. Cap refill intact. Assessment and Plan: ASSESSMENT: Encounter Diagnoses Name Primary? Toe Pain Other Convulsions PLAN: Orders Placed This Encounter Phenytoin level, total Appropriate medications prescribed (see detailed AVS). Appropriate patient instructions provided (see detailed AVS). Follow-up as I have indicated. Medications and options explained to include common side effects. Understanding of medications, course, diagnosis, and expectations were expressed by patient/g uardian. documented in this encounter Plan of Treatment Not on filedocumented as of this encounter Results * PHENYTOIN LEVEL, TOTAL (01/14/2010 3:51 PM LAMPS TESTER AND INSPECTOR) PHENYTOIN TOTAL 10.4Comment: GAB JUAN 10 - 20 ug/ml [facility] ACCT#[id number], ,,,, [facility] Specimen Blood specimen (specimen) Performing Organization Address City/State/Zipcode Ph one Number INTERFACE SYSTEM [facility]# [id number] [place] [address] [facility] [address] [facility] documented in this encounter Visit Diagnoses Diagnosis Toe pain Pain in limb Other convulsions documented in this encounter
--- OUTSIDE RECORDS SUMMARY | 2020-03-24 14:43 | XMS REPORT | Encounter Summary ---
Author Author [facility] Organization [facility] Address Unknown Phone Unavailable Care Team Providers Care Pilot Control Operator Name Role Phone Shahram Mccallum MD PCP Unavailable Reason for Visit * Reason Comments Medication Refill Encounter Details Care Team Description Date Type Department Shahram Mccallum MD NO ADDRESS ON FILE 11/27/2009 Refill [facility] Primar y Care [address] [phone] Social History Date Tobacco Use Types Packs/Day [...]
--- OUTSIDE RECORDS SUMMARY | 2020-03-24 14:43 | XMS REPORT | Encounter Summary ---
Author Author [facility] Organization [facility] Address Unknown Phone Unavailable Care Team Providers Care Filler Leaf Cutter Long Name Role Phone Shahram Mccallum MD PCP Unavailable Encounter Details Care Team Description Date Type Department Rosalinda Bal Seizure Disorder (Primary Dx) 10/21/2009 Orders Only [facility] Primar y Care [place] [address] [place] [phone] Social History Date Tobacco Use Types Packs/Day [...] TOTAL 20.2 (H)Comment: 10 - 20 ug/ml [facility] ACCT#[id number], ,,,, [facility] Specimen Blood specimen (specimen) Performing Organization Address City/State/Zipcode Ph one Number [facility] CLIA# [id number] [place], [place] [address] - [place] [address] [facility] CLIA# [id number] [place] [facility] [address] [facility] [address] [place] [address] documented in this encounter Visit Diagnoses Diagnosis Seizure disorder - Primary Unspecified epilepsy without mention of intractable epilepsy documented in this encounter
--- OUTSIDE RECORDS SUMMARY | 2020-03-24 14:43 | XMS REPORT | Encounter Summary ---
Author Author [facility] Organization [facility] Address Unknown Phone Unavailable Care Team Providers Care Land Acquisition Specialist Name Role Phone Shahram Mccallum MD PCP Unavailable Reason for Visit * Reason Comments Medication Refill Encounter Details Care Team Description Date Type Department Shahram Mccallum MD NO ADDRESS ON FILE 10/30/2009 Refill [facility] Primar y Care [address] [phone] Social History Date Tobacco Use Types Packs/Day [...]
--- OUTSIDE RECORDS SUMMARY | 2020-03-24 14:43 | XMS REPORT | Encounter Summary ---
Author Author [facility] Organization [facility] Address Unknown Phone Unavailable Care Team Providers Care Welder Helper Name Role Phone Shahram Mccallum MD PCP Unavailable Reason for Visit * Reason Comments Medication Refill Encounter Details Care Team Description Date Type Department Shahram Mccallum MD NO ADDRESS ON FILE 01/15/2010 Refill [facility] Primar y Care [address] [phone] Social History Date Tobacco Use Types Packs/Day [...]
--- OUTSIDE RECORDS SUMMARY | 2020-03-24 14:43 | XMS REPORT | Encounter Summary ---
Author Author [facility] Organization [facility] Address Unknown Phone Unavailable Care Team Providers Care Pharmaceutical Sales Specialist Name Role Phone Shahram Mccallum MD PCP Unavailable Reason for Visit * Reason Comments Diabetes Encounter Details Care Team Description Date Type Department Shahram Mccallum MD NO ADDRESS ON FILE Other Convulsions; Bipolar Disorder, Unspecified; Cor Athrscl-Uns Vessel; Unspecified Essential Hypertension 12/19/2009 Office Visit [facility] [address] [place] [address] Social History Date [...] Reading Time Taken Comments Vital Sign 138/74 12/19/2009 10:56 AM ESCAPE WHEEL TOOTH CUTTER Blood Pressure 60 12/19/2009 10:56 AM ESCAPE WHEEL TOOTH CUTTER Pulse - - Temperature - - Respiratory Rate - - Oxygen Saturation - - Inhaled Oxygen Concentration 102.1 kg (225 lb) 12/19/2009 10:56 AM ESCAPE WHEEL TOOTH CUTTER Weight - - Height 35.24 10/18/2009 2:25 PM ESCAPE WHEEL TOOTH CUTTER Body Mass Index documented in this encounter Progress Notes * Shahram Mccallum MD - 12/19/2009 11:18 AM ESCAPE WHEEL TOOTH CUTTER Subjective: Oliverio Dalton is a 59 y.o. [...] prior to encounter Medication Sig Dispense Refill esomeprazole (NEXIUM) 40 mg Oral CpDR Take 1 Cap by mouth daily before break fast. 30 Cap 11 zolpidem (AMBIEN) 10 mg Oral tablet Take 1 Tab by mouth nightly as needed fo r Insomnia. ok'd by dr rodriguez supervisor bonding 30 Tab 0 lorazepam (ATIVAN) 1 mg [...] Cap Take 1 Cap by mouth daily ceramic restorer . 30 Cap 5 magnesium oxide 250 [...] SR 24 hour (FLOMAX) 0.4 mg Oral Cp24 Take 1 Cap by mouth daily. 3 0 min. After supper 30 Cap 5 isosorbide mononitrate (IMDUR) 60 mg Oral Tb24 Take 1 Tab by mouth 2 times d aily. 60 Tab 5 pioglitazone (ACTOS) 30 mg Oral [...] 1000 mg by mouth 3 times daily. NITROQUICK 0.[address] 0.4 mg under tongue. As needed for p ain up to 3 tabs TRICOR 145 mg Oral Tab Take 145 [...] 4 hours as needed for P ain. Dilantin level HPI: Mr. Dalton complains of the following (by systems): no further seizure and dilantin lever 12.1 Review of Systems: MARA Denies all of the following: Headache Dizziness Chest pain: no recurrent since hosp Shortness of breath Bowel changes Bladder changes Pain in muscle or joints: chronic Exam/Objective: Normal Exam for Routine Visits: \Blood pressure 138/74, pulse 60, weight 225 lb (102.059 kg). General appearance: chronic ill appearing, active, [...] and Plan: ASSESSMENT: Encounter Diagnoses Name Primary? Other Convulsions Bipolar Disorder, Unspecified Cor Athrscl-Uns Vessel Unspecified Essential Hypertension PLAN: No orders of the defined types were placed in this encounter. Same regimen and jean marie at visit in late January / early february Appropriate medications prescribed (see detailed AVS). Appropriate patient instructions provided (see detailed AVS). Follow-up as I have indicated. Medications and options explained to include common side effects. Understanding of medications, course, diagnosis, and expectations were expressed by patient/g uardian. PE WHEEL TOOTH CUTTER documented in this encounter Plan of Treatment Not on filedocumented as of this encounter Visit Diagnoses Diagnosis Other convulsions Bipolar disorder, unspecified Coronary atherosclerosis of unspecified type of vessel, [place] or graft Unspecified essential hypertension documented in this encounter
--- OUTSIDE RECORDS SUMMARY | 2020-03-24 14:43 | XMS REPORT | Encounter Summary ---
Author Author [facility] Organization [facility] Address Unknown Phone Unavailable Care Team Providers Care Damper Worker Name Role Phone Shahram Mccallum MD PCP Unavailable Encounter Details Care Team Description Date Type Department [facility], Lab Schedule 01/14/2010 Hospital [facility] General Encounter Laboratory Services [address] [phone] Social History Date Tobacco Use [...] Drop in both eyes 2 times daily. 01/09/2010 07/30/2010 nitroglycerin (NITROSTAT) Place 1 Tab 25 Tab 0 0.4 mg Sublingual Subl under tongue every 5 minutes as needed for Chest Pain. 12/25/2009 01/22/2010 zolpidem (AMBIEN) 10 mg Take 1 Tab by 30 Tab 0 Oral tablet mouth nightly as needed for Insomnia. ok'd by dr yeh inclusion teacher. 12/25/2009 12/15/2010 isosorbide mononitrate SR Take 1 Tab by 60 Tab 11 24 hour (IMDUR) 60 mg mouth 2 times Oral tablet daily. 12/11/2009 12/15/2010 esomeprazole (NEXIUM) 40 Take 1 Cap by 30 Cap 11 mg Oral CpDR mouth daily before breakfast. 11/13/2009 01/22/2010 lorazepam (ATIVAN) 1 mg Take 1 Tab by 60 Tab 0 Oral tablet mouth 2 times daily. 10/30/2009 05/14/2010 metoprolol succinate ER Take 1 Tab by 30 Tab 5 24 hour (TOPROL XL) 25 mg mouth daily. Oral tablet 10/30/2009 05/07/2010 fluoxetine (PROZAC) 20 mg Take 2 Caps 60 Cap 5 Oral Cap by mouth daily. 10/21/2009 03/03/2010 phenytoin (DILANTIN) 100 Take 1 Cap by 30 Cap 5 mg Oral Cap mouth daily lead java software engineer. 08/21/2009 02/19/2010 loratadine (CLARITIN) 10 Take 1 [...] Cp24 mouth daily. 30 min. After supper 04/18/2009 04/09/2010 pioglitazone (ACTOS) 30 Take 1 [...] Associated Diag nosis PHENYTOIN LEVEL, TOTAL Routine 01/14/2010 Other C onvulsions 3:51 PM PASSENGER BRAKEMAN documented in this encounter Results * PHENYTOIN LEVEL, TOTAL (01/14/2010 3:51 PM PASSENGER BRAKEMAN) PHENYTOIN TOTAL 10.4Comment: GAB JUAN 10 - 20 ug/ml [facility] ACCT#[id number], ,,,, [facility] Specimen Blood specimen (specimen) Performing Organization Address City/State/Zipcode Ph one Number INTERFACE SYSTEM [facility]# [id number] [place] [address] [facility] [address] [facility] documented in this encounter Visit Diagnoses Diagnosis Other convulsions documented in this encounter
--- OUTSIDE RECORDS SUMMARY | 2020-03-24 14:43 | XMS REPORT | Encounter Summary ---
Author Author [facility] Organization [facility] Address Unknown Phone Unavailable Care Team Providers Care Drug Safety Specialist Name Role Phone Shahram Mccallum MD PCP Unavailable Reason for Visit * Reason Comments Medication Refill Encounter Details Care Team Description Date Type Department Self, Aries Montelongo MD [address] [place] [address] 01/22/2010 Refill [facility] Primar y Care [place] [address] [place] [address] Social History Date Tobacco Use [...]
--- OUTSIDE RECORDS SUMMARY | 2020-03-24 14:43 | XMS REPORT | Encounter Summary ---
Author Author [facility] Organization [facility] Address Unknown Phone Unavailable Care Team Providers Care Financial Coordinator Name Role Phone Shahram Mccallum MD PCP Unavailable Reason for Visit * Reason Comments Medication Refill Encounter Details Care Team Description Date Type Department Shahram Mccallum MD NO ADDRESS ON FILE 12/25/2009 Refill [facility] Primar y Care [address] [phone] Social History Date Tobacco Use Types Packs/Day [...]
--- OUTSIDE RECORDS SUMMARY | 2020-03-24 14:43 | XMS REPORT | Encounter Summary ---
Author Author [facility] Organization [facility] Address Unknown Phone Unavailable Care Team Providers Care Leather Sorter Name Role Phone Shahram Mccallum MD PCP Unavailable Reason for Visit * Reason Comments Medication Refill Encounter Details Care Team Description Date Type Department Claus Couch MD [address] [place] [address] 11/13/2009 Refill [facility] Primar y Care [place] [address] [place] [address] Social History Date Tobacco Use [...]
--- OUTSIDE RECORDS SUMMARY | 2020-03-24 14:43 | XMS REPORT | Encounter Summary ---
Author Author [facility] Organization [facility] Address Unknown Phone Unavailable Care Team Providers Care Size Tester Name Role Phone Shahram Mccallum MD PCP Unavailable Reason for Visit * Reason Comments Medication Refill Encounter Details Care Team Description Date Type Department Shahram Mccallum MD NO ADDRESS ON FILE 01/09/2010 Refill [facility] Primar y Care [address] [phone] Social History Date Tobacco Use Types Packs/Day [...]
--- OUTSIDE RECORDS SUMMARY | 2020-03-24 14:43 | XMS REPORT | Encounter Summary ---
Author Author [facility] Organization [facility] Address Unknown Phone Unavailable Care Team Providers Care Gravity Prospecting Observer Helper Name Role Phone Shahram Mccallum MD PCP Unavailable Reason for Visit * Reason Comments Results dilantin level to high Encounter Details Care Team Description Date Type Department Rosalinda Bal Results (dilantin level to high) 10/21/2009 Telephone [facility] Primar Care [place] [address] [place] [address] Social History Date Tobacco Use [...] * Telephone Encounter - Rosalinda Bal - 10/21/2009 5:13 PM WEB APPLICATIONS PROGRAMMER Patient has Phentek 200mg capsules, per Dr Mccallum decrease to pm only and start Phentek 100mg a.m. Only. Repeat dilantin level 3 weeks. APPLICATIONS PROGRAMMER documented in this encounter Plan of Treatment Not on filedocumented as of this encounter Visit Diagnoses Not on filedocumented in this encounter
--- OUTSIDE RECORDS SUMMARY | 2020-03-24 14:43 | XMS REPORT | Encounter Summary ---
Author Author [facility] Organization [facility] Address Unknown Phone Unavailable Care Team Providers Care Before School Name Role Phone Shahram Mccallum MD PCP Unavailable Encounter Details Care Team Description Date Type Department Nuris Miramontes Chronic Airway Obstruction, not Elsewher e Classified; DM w/o Complication Type I; Hyperlipidemia 12/19/2009 Orders Only [facility] Primar y Care [place] [address] [place] [address] Social History Date Tobacco Use [...] of this encounter Results * HEMOGLOBIN A1C (02/06/2010 7:28 AM CDT) HEMOGLOBIN A1C 7.3 (H) 0 - 6.0 % [facility] GLUCOSE, MEAN 163Comment: [place], [place] mg/dl [facility] BLOOD ACCT#[id number], ,,,, [facility] [place] [facility] Specimen Blood specimen (specimen) Performing Organization Address City/State/Zipcode Ph one Number INTERFACE SYSTEM [facility] CLIA# [id number] [place] [facility] [address] [facility] [address] [facility] * LIPID PANEL (02/06/2010 7:28 AM CDT) CHOLESTEROL 273 (H) 140 - 200 mg/dl [facility] TRIGLYCERIDE 573 (H) 0 - 199 mg/dl [facility] Comment: [facility] REFERENCE RANGE - [facility] TRIGLYCERIDES NORMAL LESS THAN 150 mg/dl BORDERLINE HIGH 150 - 199 mg/dl HIGH 200 - 499 mg/dl VERY HIGH GREATER THAN OR = 500 mg/dl HDL 46 27 - 67 mg/dl [facility] LDL 148 (H) <130 mg/dl [facility] CHOLESTEROL, Comment: [facility] DIRECT [facility] RISK CATEGORY LDL GOAL High risk: <100 mg/dl CHD or CHD risk equivalents (optional goal: <70 mg/dl) (10-year risk > 20%) Moderately high risk <130 mg/dl 2+ risk factors (10-year risk 10% to 20%) Moderate risk: <130 mg/dl 2+ risk factors (10-year risk < 10%) Lower risk: <160 mg/dl 0-1 [facility] factor [id number], ,,,, Specimen Blood specimen (specimen) Performing Organization Address City/State/[facility] Ph one Number [facility] [id number] [place] [address] [facility] [address] [facility] * COMPREHENSIVE METABOLIC PANEL (02/06/2010 7:28 AM CDT) [facility] GLUCOSE 209 (H) 70 - 100 mg/dl [facility] BUN 23.0 (H) 7 - 20 mg/dl [facility] CREATININE 0.99 0.8 - 1.3 mg/dl [facility] BUN/CREAT RATIO 23.2 (H) 10 - 20 [facility] [place] [facility] GFR 82 >90 ml/min [facility] SODIUM 136 135 - 145 mmol/L [facility] POTASSIUM 4.3 3.3 - 4.8 mmol/L [facility] CHLORIDE 101 98 - 107 mmol/L [facility] CO2 27.0 22 - 31 mmol/L [facility] ANION GAP 12 4 - 20 [facility] CALCIUM 8.6 8.5 - 10.1 mg/dl [facility] ALBUMIN 4.2 3.4 - 5.0 g/dl [facility] TOTAL PROTEIN 7.4 6.4 - 8.2 g/dl [facility] GLOBULIN (CALC) 3.2 [facility] ALBUMIN/GLOBULI 1.3 [facility] BILIRUBIN TOTAL 0.3 <1.1 mg/dl [facility] [place] [facility] ALKALINE 77 50 - 136 IU/L [facility] PHOSPHATASE [facility] AST 19 10 - 40 IU/L [facility] ALT 43Comment: GAB JUAN 25 - 70 IU/L [facility] ACCT#[id number], ,,,, [facility] [place] [facility] Specimen Blood specimen (specimen) Performing Organization Address City/State/Zipcode Ph one Number INTERFACE SYSTEM [facility] MICHELLE# [id number] [place] [id number] [facility] [address] [facility] documented in this encounter Visit Diagnoses Diagnosis Chronic airway obstruction, not elsewhe re classified Type I (juvenile type) diabetes mellitu s without mention of complication, not stated as uncontrolled Hyperlipidemia Other and unspecified hyperlipidemia documented in this encounter
--- OUTSIDE RECORDS SUMMARY | 2020-03-24 14:43 | XMS REPORT | Encounter Summary ---
Author Author [facility] Organization [facility] Address Unknown Phone Unavailable Care Team Providers Care Engineering Team Supervisor Name Role Phone Shahram Mccallum MD PCP Unavailable Reason for Visit * Reason Comments Medication Refill Encounter Details Care Team Description Date Type Department Shahram Mccallum MD NO ADDRESS ON FILE 01/22/2010 Refill [facility] Primar y Care [address] [id number] Social History Date Tobacco Use Types Packs/Day [...]
--- OUTSIDE RECORDS SUMMARY | 2020-03-24 14:43 | XMS REPORT | Encounter Summary ---
Author Author [facility] Organization [facility] Address Unknown Phone Unavailable Care Team Providers Care Taping Machine Operator Name Role Phone Shahram Mccallum MD PCP Unavailable Reason for Visit * Reason Comments Chest Pain started in his back earlier this morning. Later moved into his chest 08/17 with some releif from nitro sl x 1. Rep orts frequent episodes of chest pain with a significant cardiac hx. * Auth/Cert Referred By Contact Referred To Contact Status Reason Specialty Diagnoses / Procedures [facility] Med Surg [address] [place] [address] Closed Inpatient Encounter Details Care Team Description Date Type Department Shahram Mccallum MD NO ADDRESS ON FILE 10/18/2009 Emergency [facility] Medical Surgical 10/19/2009 [address] [place] [address] Social History Date Tobacco [...] Signs Reading Time Taken Comments Vital Sign 122/63 10/19/2009 9:46 AM REGULATORY AUDITOR Blood Pressure 57 10/19/2009 9:46 AM REGULATORY AUDITOR Pulse 37.2 C (98.9 F) 10/19/2009 9:46 AM REGULATORY AUDITOR Temperature 18 10/19/2009 9:46 AM REGULATORY AUDITOR Respiratory Rate 98% 10/19/2009 9:46 AM REGULATORY AUDITOR Oxygen Saturation - - Inhaled Oxygen Concentration 100.4 kg (221 lb 4.8 oz) 10/18/2009 2:25 PM REGULATORY AUDITOR Weight 170.2 cm (5' 7") 10/18/2009 2:25 PM REGULATORY AUDITOR Height 34.66 10/18/2009 2:25 PM REGULATORY AUDITOR Body Mass Index documented in this encounter Discharge Summaries * Shahram Mccallum MD - 10/22/2009 8:55 AM REGULATORY AUDITOR [facility]. [address] [place] [address]. [place] [address] DISCHARGE SUMMARY Patient: OLIVERIO TINSLEY Location: [facility] Room#: TL441-5 Unit#: [id number] Attending Physician: Karena Person. Admitted: 10/18/09 Discharged: 10/19/09 DISMISSAL DIAGNOSIS: 1. Chest wall pain. 2. History of arteriosclerotic vascular disease. 3. History of chronic obstructive pulmonary disease. 4. Diabetes. 5. Hyperlipidemia. 6. Hypertension. 7. Glaucoma. HISTORY: This is a 59-year-old gentleman admitted through the emergency room to an observation bed. He had presented with chest pain that was unrelieved in the emergency room. Details are on the H P. LABORATORY AND X-RAY DATA: Cardiac iso series is negative. He did have a tropon in up to 0.11 but otherwise less than 0.4. CBC, hemoglobin initially was 13, hem atocrit 37.3. Follow up today the hemoglobin is 11.6, hematocrit 33.2, this is a fter IV hydration. Thoracic spine films showed mild degenerative changes involvi ng the thoracic spine, no other acute bony abnormalities. Chest x-ray showed no acute infiltrates or abnormalities about the chest. HOSPITAL COURSE: On hospitalization, Oliverio had been watched carefully. At thi s time his pain is essentially resolved. No other issues, no worsening shortness of breath. In light of that resolution, without evidence of cardiac change or e specially any recent cardiac ischemic injury he is being dismissed home. He will resume his home medications which are detailed on the chart that include Ativan, magnesium oxide, Levaquin, Claritin, Ambien, Dilantin, Urecholine, Daypro, Kendall max, Imdur, Actos, hydrocodone, Plavix, Prozac, Zocor, Nexium, Flonase, Lantus i nsulin, aspirin, flax seed, Tricor, Zetia, multiple vitamin, Aerobid, Albuterol, Betimol 0.5% saline nasal drops, Toprol, Altace, Nitroquick and Tylenol. He has ongoing appointments scheduled in our office and will see him at that time. He understands that he can follow up at any time for urgent or emergent care. Dictated by: Shahram Mccallum M.D. DD 10/19/09 TD 10/22/09 0855/DCJ DISCHARGE SUMMARY # [id number] LATORY AUDITOR * Shahram Mccallum MD - 10/19/2009 9:31 AM REGULATORY AUDITOR This discharge note has been dictated. LATORY AUDITOR * Shahram Mccallum MD - 10/19/2009 9:20 AM REGULATORY AUDITOR .dict LATORY AUDITOR documented in this encounter Discharge Instructions * Patient Instructions* Johnnie Duque - 10/21/2009 1:54 PM REGULATORY AUDITOR * Additional Instructions* Shahram Mccallum MD - 10/19/2009 FOLLOW-UP Follow up with Shahram Mccallum MD as scheduled. SIGNS AND SYMPTOMS TO REPORT Contact me if you experience any of the following symptoms: any increased proble ms. ACTIVITY Your activity level is: activity as tolerated. DIET Your diet is: Diabetic diet (specify calories / restrictions) and heart healthy YOUR HOSPITAL PROBLEMS ADDRESSED INCLUDE Chest wall pain documented in this encounter Medications at Time of Discharge Start Date End Date Medication Sig Dispensed Refills 12/29/2007 BETIMOL 0.5 % OP Drop Administer 1 0 Drop in both eyes 2 times daily. 11/13/2009 lorazepam (ATIVAN) 1 mg Take 1 mg by 0 Oral Tab mouth daily at bedtime. 08/21/2009 02/19/2010 loratadine (CLARITIN) 10 Take 1 [...] mouth daily. documented as of this encounter Progress Notes * Julia Le RN - 10/19/2009 11:19 AM REGULATORY AUDITOR Oliverio Tinsley will be discharged via wheelchair to home. Oliverio Tinsley is accompanied by significant other and will be transported via private vehicle. LATORY AUDITOR * Neela Solorio RN - 10/19/2009 3:24 AM REGULATORY AUDITOR Pt c/o chest pain, radiating to left side of chest. Notified Dr. Couch, order received for nitro 0.4mg. Nitro given x2, with minimal relief. Morphine 2mg also given. Pt then felt that the pain might be anxiety related. Paged , n ew order for xanax 0.5mg. Will cont to monitor. LATORY AUDITOR * Althea Andrews, PHARMACIST - 10/18/2009 4:59 PM REGULATORY AUDITOR Screened per protocol and patient is current on pneumonia and seasonal flu vacci nida. T documented in this encounter H&P Notes * Shahram Mccallum MD - 10/19/2009 12:36 PM REGULATORY AUDITOR [facility]. [address] [place] [address] HISTORY AND PHYSICAL Patient: OLIVERIO TINSLEY Location: [facility] Room#: FT841-3 Unit#: [id number] Attending Physician: Karena Person Admitted: 10/18/09 Service Date: 10/18/09 CHIEF COMPLAINT: "I am hurting in my chest and back". HISTORY OF PRESENT ILLNESS: This is a 59 year-old gentleman with multiple medic al problems who presented to the emergency room complaining of progressive onset of pain initially in his mid upper back but then pain into the left chest. He is a difficult historian. It seems that the pain may be radicular into the area. In the emergency room he was evaluated and his troponins were negative but analg esia, rest and conservative treatment didn't give him adequate relief so he is a dmitted to an observation bed to further control this and evaluate as necessary. PAST MEDICAL HISTORY: Arteriosclerotic heart disease, diabetes, seizures, hyper lipidemia, hypertension, chronic respiratory illness with asthma. SURGICALLY he has had cardiac stents on multiple occasions, colonoscopy and cholecystectomy. FAMILY HISTORY: Contributory for diabetes and asthma. SOCIAL SITUATION: He lives independently but has friends and agency assistance. He has stopped smoking and he has stopped drinking alcohol. MEDICATIONS PRIOR TO ADMISSION: Ativan, Magnesium, Levaquin, Claritin, Ambien, Dilantin, urecholine, Daypro, Flomax, Imdur, Actos, Vicodin 7.5/500, Plavix, Pro erik, Zocor, Nexium, Flonase, Lantus, aspirin, Flax seed, Tricor, Zetia, multiple vitamin, Aerobid, Albuterol, Betimol eye drops, [place] nasal spray, Toprol XL, A ltace and p.r.n. nitroglycerin and Tylenol. ALLERGIES: VALIUM caused respiratory problems, ZOSYN caused hives, PHENOBARB al so caused respiratory problems, HYTRIN and CODEINE are also listed as allergies. REVIEW OF SYSTEMS: As per HPI. He did not have increased cardiac like pressure, heaviness, tightness nor worsening shortness of breath. No nausea, vomiting or diarrhea. No fever, no chills. No acute bowel or bladder changes. No lateralizin g neurologic deficits. PHYSICAL EXAMINATION VITAL SIGNS: On admission, he was afebrile. Pulse 77, resp 16, BP 141/88. GENER AL: Natalie appeared to be moderately uncomfortable with the pain however not in marked cardiac or respiratory distress. HEENT: Pupils are equal, round and reactive. Mucous membranes are moist. NECK: Without masses. JVD is not elevated. CHEST: Bilaterally diminished through scattered coarse breath sounds is typical for him. There was some tenderness along the sternum and left upper chest into the back. No rashes. This reproduced part of the pain. CARDIOVASCULAR: Distant. There is a murmur present. No other rubs or gallops. A BDOMEN: Slightly heavy. Bowel sounds are present. No tenderness, rebound, guardi ng or masses. RECTAL: Not done. EXTREMITIES: Trace of edema which is chronic. NEUROLOGIC: He is anxious but otherwise no acute deficits. IMPRESSION: Chest pain without evidence of ischemic injury but unrelieved with conservative management in the emergency room. PLAN: Admit to an observation bed. Dictated by: Shahram Mccallum M.D. DD 10/19/09 TD 10/19/09 1236/NEC HISTORY AND PHYSICAL # [id number] LATORY AUDITOR documented in this encounter Procedure Notes * Aok Scanning, [facility] Physician - 10/23/2009 9:55 AM REGULATORY AUDITOR Associated Order(s): PHENYTOIN LEVEL, FREE; PHENYTOIN LEVEL, FREE * Aok Scanning, [facility] Physician - 10/22/2009 11:23 AM REGULATORY AUDITOR Associated Order(s): ECG REPORT; ECG REPORT * Aok Scanning, [facility] Physician - 10/22/2009 11:13 AM REGULATORY AUDITOR Associated Order(s): EKG 12-LEAD; EKG 12-LEAD * Aok Scanning, [facility] Physician - 10/22/2009 10:59 AM REGULATORY AUDITOR Associated Order(s): TELEMETRY REPORT; TELEMETRY REPORT * Michele Dye MD - 10/21/2009 9:30 AM REGULATORY AUDITOR Associated Order(s): ECG REPORT; ECG REPORT [place] [address] EKG OLIVERIO TINSLEY EF118 [id number] 10/19/09 at 0745. Rate 51, CA 0.19, QRS 0.08, [place] +6 degrees. Compared with previous day's tracing, T waves remain flattened across the chest. R wave progression is better in the chest leads. Diagnosis: 1) Sinus bradycardia. 2) Limb lead low voltage. 3) Nonspecific T wave changes. Dictated by Cirilo ICD: 427.81 Dictated by: EKG DD 10/21/09 TD 10/21/09/LRG EKG REPORT # [id number] ORDER # LATORY AUDITOR * Michele Dye MD - 10/21/2009 9:26 AM REGULATORY AUDITOR Associated Order(s): ECG REPORT; ECG REPORT [facility] [address] [facility]. [place], [place] [address] EKG OLIVERIO TINSLEY EF118 [id number] 10/18/09 at 0934. Rate 72, CA 0.19, QRS 0.07, [place] +27 degrees. The rhythm is regular and of sinus origin. T waves are invert ed in the lateral limb leads and flattened across the chest. R wave progression is slow across the chest. Compared with previous tracing 03-27-09, there were sim ilar T wave changes. A similar slow R wave progression was also present. Diagnos is: 1) Normal sinus rhythm. 2) Limb lead low voltage. 3) Slow R wave progression in the anteroseptal leads probably due to clockwise rotation of horizontal elec trical axis. 4) Nonspecific T wave changes Dictated by Guanaco. ICD: 794.31 Dictated by: EKG DD 10/21/09 TD 10/21/09/LRG EKG REPORT # [id number] ORDER # LATORY AUDITOR documented in this encounter ED Notes * Kristina Keller RN - 10/18/2009 1:04 PM REGULATORY AUDITOR Assumed care of pt. Pt laughing & visiting with staff. No c/o at this present time. Aware that we are waiting on his 3 hr lab results. LATORY AUDITOR * Shahram Henry RN - 10/18/2009 11:35 AM REGULATORY AUDITOR Pain still comes and goes. All lab returned and v/s within normal. Plan to keep pt in ED for 3 hour cardiac enzymes. LATORY AUDITOR * Shahram Henry RN - 10/18/2009 10:47 AM REGULATORY AUDITOR Pain still present at a low level 12/18, however pain appears more relaxed. LATORY AUDITOR * Shahram Henry RN - 10/18/2009 10:14 AM REGULATORY AUDITOR Pt with no releif from nitro sl. Pain veries and comes and goes. Morphine order received. LATORY AUDITOR * Sybil Henry ARNP - 10/18/2009 9:44 AM REGULATORY AUDITOR HISTORY OF PRESENT ILLNESS Oliverio Tinsley, a 59 y.o. male presents to the ED with a Chief Complaint of Ch est Pain HPI Comments: Pain began in back, radiated to chest this am, denies injury or tr auma. Some relief with ntg at home. Patient is a 59 y.o. male presenting with chest pain. The history is provided by the patient. Chest Pain This is a new problem. The current episode started 1 to 2 hours ago. The pain is present in the substernal region and lateral region. The pain quality is descri bed as heavy. The pain radiates to the upper back. Associated symptoms include d iaphoresis, exertional chest pressure, nausea, vomiting and shortness of breath. Pertinent negatives include no fever, no irregular heartbeat, no syncope, no ab dominal pain, no cough, no hemoptysis and no sputum production. The treatment pr ovided mild relief. Risk factors include diabetes mellitus, obesity, a sedentary lifestyle and being male (cad, s/p cabg 15 stents). Procedure history is signif icant for cardiac catheterization. He has tried nitroglycerin for the symptoms. REVIEW OF SYSTEMS Review of Systems Constitutional: Positive for diaphoresis. Negative for fever. Respiratory: Positive for shortness of breath. Negative for cough, hemoptysis an d sputum production. Cardiovascular: Positive for chest pain. Negative for syncope. Gastrointestinal: Positive for nausea and vomiting. Negative for abdominal pain. PAST MEDICAL HISTORY REVIEWED Past Medical History Diagnosis Date Wrist Sprain 08/10 Rt. Contusion, Back 08/16/03 Fall Cataract Unspecified Disease of Respiratory System Glaucoma Unspecified Disorder of Lipoid Metabolism Asthma Diabetes Seizure Disorder Coronary Artery Disease Unspecified Chronic Ischemic Heart [...] Psa 09/13 Hx surgical other 07/11 Colonoscopy Hx hernia repair 1988 And age 4 Hx heart catheterization 04/10 With angioplasty, 2 stents Hx lap cholecystectomy 05/17/07 Pr colonoscopy,diagnostic 02/01/2009 COLONOSCOPY performed by BEULAH MOORE at [facility] Family History Problem Relation Other Mother Blood pressure Diabetes Mother Respiratory Disease Mother Asthma Mother Other Sister Blood pressure Diabetes Sister Respiratory Disease Sister Heart Disease Sister Asthma Sister Lung Cancer Brother Seizures Brother History Social History Main Topics Tobacco Use: Quit Quit date: 03/08/1995 Alcohol Use: No Drug Use: No Sexually Active: No ALLERGIES Valium, Piperacillin-tazobactam, Phenobarbital, Terazosin and Codeine HOME MEDICATIONS levofloxacin (LEVAQUIN) 500 mg Oral Tab Take 1 Tab by mouth daily. lorazepam (ATIVAN) 1 mg Oral Tab Take 1 Tab by mouth 2 times daily. ok'd by dr yeh transformation lead loratadine (CLARITIN) 10 mg Oral Tab Take 1 Tab by mouth daily. zolpidem (AMBIEN) 10 mg Oral Tab Take 1 Tab by mouth nightly as needed for I nsomnia. phenytoin (PHENYTEK) 200 mg Oral Cap Take 1 Cap by mouth 2 times daily. bethanechol (URECHOLINE) 25 mg Oral Tab Take 1 Tab by mouth 4 times daily. oxaprozin (DAYPRO) 600 mg Oral Tab Take 1 Tab by mouth daily. tamsulosin SR 24 hour (FLOMAX) 0.4 mg Oral Cp24 Take 1 Cap by mouth daily. 3 0 min. After supper isosorbide mononitrate (IMDUR) 60 mg Oral Tb24 Take 1 Tab by mouth 2 times d aily. pioglitazone (ACTOS) 30 mg Oral Tab Take 1 Tab by mouth daily. HYDROCODONE BIT/ACETAMINOPHEN (HYDROCODONE-ACETAMINOPHEN) 7.5-500 mg Oral Ta b Take 1 Tab by mouth every 4 hours as needed for Pain. clopidogrel (PLAVIX) 75 mg Oral Tab Take 1 Tab by mouth daily. PROZAC 40 mg Oral Cap Take 40 mg by mouth daily. simvastatin (ZOCOR) 80 mg Oral Tab Take 1 Tab by mouth daily at bedtime. esomeprazole (NEXIUM) 40 mg Oral CpDR Take 1 Cap by mouth daily before a delmi l. FLONASE 50 mcg/Actuation Both Nostril SpSn Administer 2 Sprays in each nostr il daily. insulin glargine (LANTUS) 100 unit/mL subCUT Soln Inject by subcutaneous in jection. 20 units at hs. ASPIRIN EC 81 mg Oral TbEC Take 81 mg by mouth daily. flaxseed Oil 1,000 mg Oral Cap Take 1000 mg by mouth 3 times daily. magnesium chloride (SLOW-MAG) 64 mg Oral TbSR Take 64 mg by mouth 3 times da maribel. NITROQUICK 0.[address] 0.4 [...] by inhalation every 6 hours as needed COMBIVENT IN Take 2 Puffs by inhalation 2 times daily. Or every 4 hours as n eeded BETIMOL 0.5 % OP Drop Administer 1 Drop in both eyes 2 times daily. Ycwchul-Ygruoxhwx-Hnkn Oral Tab Take by mouth 2 times daily. DEEP SEA NASAL NA Administer 2 Sprays in each nostril 2 times daily. ACCU-CHEK ACTIVE TEST Strp by See Admin Instructions route 2 times daily. In the am & pm prn TOPROL XL PO Take 25 mg by mouth daily. ALTACE 10 mg Oral Cap Take 10 mg by mouth daily. At noon TYLENOL 325 mg Oral Tab Take 1-2 Tabs by mouth every 4 hours as needed for P ain. PHYSICAL EXAM Initial Vitals BP 10/18/09928 141/88 mmHg Pulse 10/18/09928 77 Resp 10/18/09928 16 Temp 10/18/09928 97.8 F (36.6 C) Temp src 10/18/09928 Oral SpO2 10/18/09928 96 % Physical Exam Constitutional: He is oriented. He appears well-developed and well-nourished. HENT: Head: Normocephalic and atraumatic. Mouth/Throat: Oropharynx is clear and moist. Eyes: Pupils are equal, round, and reactive to light. Neck: Normal range of motion. Neck supple. Cardiovascular: Normal rate, regular rhythm and normal heart sounds. Pulmonary/Chest: Effort normal and breath sounds normal. He exhibits tenderness. Pain in chest and back worse with mvt, and raising left arm Abdominal: Soft. Bowel sounds are normal. Musculoskeletal: Normal range of motion. Left shoulder: He exhibits normal range of motion, no tenderness, no bony t enderness, no swelling, no effusion, no crepitus, no deformity, no pain, no spas m, normal pulse and normal strength. Arms: Pain worse with mvt of trunk, palpation and lifting left arm Neurological: He is alert and oriented. Skin: Skin is warm and dry. Psychiatric: He has a normal mood and affect. His behavior is normal. MDM Coding Reviewed: previous chart, nursing note and vitals Interpretation: labs and ECG Consults: admitting MD DIAGNOSTICS LAB: Results for orders placed during the hospital encounter of 10/18/09 (from the [facility] 24 hour(s)) BRAIN NATRIURETIC PEPTIDE, BNP OR PROBNP Component Value Range BRAIN NATRIURETIC PEPTIDE 111 0-125 (pg/ml) CBC WITH DIFFERENTIAL Component Value Range WBC 5.87 3.0-10.4 (x10E3) RBC 4.47 4.15-5.75 (x10E6) HEMOGLOBIN 13.0 (*) 13.8-17.4 (g/dL) HEMATOCRIT 37.3 (*) 38.6-49.4 (%) MCV 83.4 79-100 (fL) MCH 29.2 28-34 (pg) MCHC 35.0 33-36 (g/dL) RDW 13.9 12.1-14.1 (%) PLATELETS 308 148-408 (x10E3) MPV 6.4 (*) 7.4-10.6 (fL) NEUTROPHILS 69.8 43-73 (%) LYMPHOCYTES 21.0 19-47 (%) MONOCYTES 5.9 3-9 (%) EOSINOPHILS 3.0 0-6 (%) BASOPHILS 0.2 0-1.2 (%) NEUTROPHIL ABSOLUTE 4.10 1.3-7.6 (x10E3) LYMPHOCYTE ABSOLUTE 1.24 0.6-4.9 (x10E3) MONOCYTE ABSOLUTE 0.35 0.1-0.9 (x10E3) EOSINOPHIL ABSOLUTE 0.18 0.0-0.2 (x10E3) BASOPHILS ABSOLUTE 0.01 0-0.1 (x10E3) COMPREHENSIVE METABOLIC PANEL Component Value Range GLUCOSE 243 (*) 70-110 (mg/dl) BUN 15.0 7-20 (mg/dl) CREATININE 0.95 0.8-1.3 (mg/dl) BUN/CREAT RATIO 15.8 10-20 GFR 86 - (ml/min) SODIUM 137 135-145 (mmol/L) POTASSIUM 4.2 3.3-4.8 (mmol/L) CHLORIDE 103 98-107 (mmol/L) CO2 27.1 22-31 (mmol/L) ANION GAP 11 4-20 CALCIUM 8.7 8.5-10.1 (mg/dl) ALBUMIN 4.1 3.4-5.0 (g/dl) TOTAL PROTEIN 6.7 6.4-8.2 (g/dl) GLOBULIN (CALC) 2.6 - ALBUMIN/GLOBULIN RATIO 1.6 - BILIRUBIN TOTAL 0.3 - (mg/dl) ALKALINE PHOSPHATASE 89 50-136 (IU/L) AST 20 10-40 (IU/L) ALT 36 25-70 (IU/L) MYOGLOBIN Component Value Range MYOGLOBIN, PLASMA 26 16-97 (ng/ml) TROPONIN Component Value Range TROPONIN I LESS THAN 0.04 0-0.4 (ng/ml) MYOGLOBIN Component Value Range MYOGLOBIN, PLASMA 27 16-97 (ng/ml) TROPONIN Component Value Range TROPONIN I LESS THAN 0.04 0-0.4 (ng/ml) RADIOLOGY: XR CHEST PA OR AP (Results Pending) No acute changes per radiologist EKG: NSR 72, no acute st changes PROCEDURES MEDICAL DECISION MAKING AND PLAN OF CARE Active pain in ed, no relief with ntg, ms and toradol improve pain. Chest pain, most likely ms related, however pt high cardiac risk, will admit r/o with 24 h enzymes, xr thoracic spine, Pain mgmt. Last vitals BP 118/61 | Pulse 59 | Temp(Src) 97.8 F (36.6 C) (Oral) | Resp 16 | Wt 102.513 kg | SpO2 98% CLINICAL IMPRESSION Chest pain CASE DISCUSSED Dr mccallum, primary PATIENT COUNSELING Diagnostics reviewed and questions answered. Diagnosis, treatment options and p brianna of care discussed with understanding verbalized. DISPOSITION, EDUCATION AND MEDICATION RECONCILIATION Medications reconciled. See after visit summary for patient education on discha rged patients. LATORY AUDITOR documented in this encounter Miscellaneous Notes * Scanned Form - Aok Scanning, [facility] Physician - 10/22/2009 9:57 AM REGULATORY AUDITOR * Scanned Form - Aok Scanning, [facility] Physician - 10/21/2009 1:54 PM REGULATORY AUDITOR documented in this encounter Plan of Treatment Not on filedocumented as of this encounter Procedures Comments Procedure Name Priority Date/Time Associated Diag nosis ECG REPORT 10/22/2009 11:27 AM REGULATORY AUDITOR EKG 12-LEAD Routine 10/22/2009 11:21 AM REGULATORY AUDITOR TELEMETRY REPORT 10/22/2009 11:05 AM REGULATORY AUDITOR ECG REPORT 10/21/2009 9:30 AM REGULATORY AUDITOR POC GLUCOSE Routine 10/19/2009 8:40 AM REGULATORY AUDITOR POC GLUCOSE Routine 10/19/2009 5:30 AM REGULATORY AUDITOR CBC WITHOUT DIFFERENTIAL Stat 10/19/2009 5:25 AM REGULATORY AUDITOR CARDIAC ENZYMES Stat 10/18/2009 9:50 PM REGULATORY AUDITOR TROPONIN Stat 10/18/2009 9:50 PM REGULATORY AUDITOR PHENYTOIN LEVEL, FREE Stat 10/18/2009 9:50 PM REGULATORY AUDITOR POC GLUCOSE Routine 10/18/2009 9:06 PM REGULATORY AUDITOR POC GLUCOSE Routine 10/18/2009 4:36 PM REGULATORY AUDITOR TROPONIN Stat 10/18/2009 4:10 PM REGULATORY AUDITOR XR THORACIC SPINE 3 VW Stat 10/18/2009 2:05 PM REGULATORY AUDITOR TROPONIN Stat 10/18/2009 12:50 PM REGULATORY AUDITOR MYOGLOBIN Stat 10/18/2009 12:50 PM REGULATORY AUDITOR XR CHEST PA OR AP 1 VW Stat 10/18/2009 10:03 AM REGULATORY AUDITOR CBC WITH DIFFERENTIAL Stat 10/18/2009 9:40 AM REGULATORY AUDITOR TROPONIN Stat 10/18/2009 9:40 AM REGULATORY AUDITOR BRAIN NATRIURETIC Stat 10/18/2009 PEPTIDE, BNP OR PROBNP 9:40 AM REGULATORY AUDITOR MYOGLOBIN Stat 10/18/2009 9:40 AM REGULATORY AUDITOR COMPREHENSIVE METABOLIC Stat 10/18/2009 PANEL 9:40 AM REGULATORY AUDITOR documented in this encounter Results * ECG REPORT (10/22/2009 11:27 AM REGULATORY AUDITOR) Narrative Performed At This result has an attachment that is n ot available. Procedure Note Michele Dye MD - 10/21/2009 9:26 AM REGULATORY AUDITOR [facility]. [address] [place] [address]. [place], [place] [address] EKG OLIVERIO TINSLEY EF118 [id number] 10/18/09 at 0934. Rate 72, CA 0.19, QRS 0.07, [place] +27 degrees. The rhythm is regular and of sinus origin. T waves are inverted in the lateral limb leads and flattened across the chest. R wave progression is slow across the chest. Compared with previous tracing 03-27-09, there were similar T wave changes. A similar slow R wave progression was also present. Diagnosis: 1) Normal sinus rhythm. 2) Limb lead low voltage. 3) Slow R wave progression in the anteroseptal leads probably due to clockwise rotation of horizontal electrical axis. 4) Nonspecific T wave changes Dictated by Guanaco. ICD: 794.31 Dictated by: EKG DD 10/21/09 TD 10/21/09/LRG EKG REPORT # [id number] ORDER # Transcriptions 10/22/2009 11:23 AM REGULATORY AUDITOR * EKG 12-LEAD (10/22/2009 11:21 AM REGULATORY AUDITOR) Narrative Performed At This result has an attachment that is n ot available. Procedure Note 10/22/2009 11:13 AM REGULATORY AUDITOR * TELEMETRY REPORT (10/22/2009 11:05 AM REGULATORY AUDITOR) Narrative Performed At This result has an attachment that is n ot available. Procedure Note 10/22/2009 10:59 AM REGULATORY AUDITOR * ECG REPORT (10/21/2009 9:30 AM REGULATORY AUDITOR) Procedure Note Michele Dye MD - 10/21/2009 9:[address] [facility]. [address] [place] [address]. [place], [place] [address] EKG OLIVERIO TINSLEY [id number] 10/19/09 at 0745. Rate 51, CA 0.19, QRS 0.08, [place] +6 degrees. Compared with previous day's tracing, T waves remain flattened across the chest. R wave progression is better in the chest leads. Diagnosis: 1) Sinus bradycardia. 2) Limb lead low voltage. 3) Nonspecific T wave changes. Dictated by Cirilo ICD: 427.81 Dictated by: EKG DD 10/21/09 TD 10/21/09/LRG EKG REPORT # [id number] ORDER # * POC GLUCOSE (10/19/2009 8:40 AM REGULATORY AUDITOR) [facility] POC GLUCOSE 149 (H)Comment: Luigi Kaur 70 - 110 mg/dl [place], Point of Care [facility],,,, [facility] POC GLUCOSE 149 (H) 70 - 110 mg/dl [facility] LAB Specimen Performing Organization Address [facility] Ph one Number [facility]FACE [facility] [id number] [place] [address] [facility] [address] [place] [address] * POC GLUCOSE (10/19/2009 5:30 AM REGULATORY AUDITOR) [facility] POC GLUCOSE 108Comment: Luigi Kaur, 70 - 110 mg/dl [facility], Point of Care [facility],,,, CENTER [place] [facility] POC GLUCOSE 108 70 - 110 mg/dl [facility] LAB Specimen Performing Organization Address [facility] Ph one Number INTERFACE [facility] [id number] [place], [place] [address] [facility] [address] [place] [address] * CBC WITHOUT DIFFERENTIAL (10/19/2009 5:25 AM REGULATORY AUDITOR) [facility] WBC 7.54 3.0 - 10.4 x10E3 [facility] RBC 3.97 (L) 4.15 - 5.75 x10E6 [facility] HEMOGLOBIN 11.6 (L) 13.8 - 17.4 g/dL [facility] HEMATOCRIT 33.2 (L) 38.6 - 49.4 % [facility] MCV 83.7 79 - 100 fL [facility] MCH 29.2 28 - 34 pg [facility] MCHC 34.9 33 - 36 g/dL [facility] RDW 13.9 12.1 - 14.1 % [facility] PLATELETS 293 148 - 408 x10E3 [facility] MPV 7.0 (L)Comment: 7.4 - 10.6 fL [facility] ACCT#[id number], ,,,, [facility] Specimen Blood specimen (specimen) Performing Organization Address [facility]# [id number] [place] [address] * PHENYTOIN LEVEL, FREE (10/18/2009 9:50 PM REGULATORY AUDITOR) Specimen Blood specimen (specimen) Narrative Performed At This result has an attachment that is n ot available. Procedure Note 10/23/2009 9:55 AM REGULATORY AUDITOR Performing Organization Address [facility] SERVICES CLIA# [id number] GAB JEFFERSON [address] - [facility] [address] [place] [address] * TROPONIN (10/18/2009 9:50 PM REGULATORY AUDITOR) Pathologist [facility] [place] TROPONIN I 0.07Comment: [facility] 0 - 0.4 ng/ml [facility] ACCT#[id number], ,,,, [facility] Specimen Performing Organization Address [facility] Number [facility] CLIA# [id number] [place] [address] * CARDIAC ENZYMES (10/18/2009 9:50 PM REGULATORY AUDITOR) Pathologist [facility] [place] INTERPRETATION See below. [facility] Comment: [facility] INTERPRETATION - 10/19/09 2315 [facility] Complete series is negative for acute [place]. Linda Salinas. [facility] ACCT#[id number], ,,,, Specimen Blood specimen (specimen) Performing Organization Address [facility] Number INTERFACE SYSTEM [facility] CLIA# [id number] [place] [address] [facility] [address] [place] [address] * POC GLUCOSE (10/18/2009 9:06 PM REGULATORY AUDITOR) POC GLUCOSE 195 (H)Comment: [facility], [place] 70 - 110 mg/dl [facility] [place], Point of Care CENTER [facility],,,, [facility] POC GLUCOSE 195 (H) 70 - 110 mg/dl [facility] LAB Specimen Performing Organization Address [facility] CLIA# [id number] [place], [place] [address] [facility] [address] [place] [address] * POC GLUCOSE (10/18/2009 4:36 PM REGULATORY AUDITOR) POC GLUCOSE 150 (H)Comment: [facility], [place] 70 - 110 mg/dl [facility], [place], Point of Care CENTER [facility],,,, [facility] POC GLUCOSE 150 (H) 70 - 110 mg/dl [facility] Specimen Performing Organization Address [facility] INTERFACE [facility] CLIA# [id number] [facility] [place], [place] S [address] [facility] [address] [place] [address] * TROPONIN (10/18/2009 4:10 PM REGULATORY AUDITOR) TROPONIN I 0.11Comment: [facility]FAYENH 0 - 0.4 ng/ml [facility] ACCT#[id number], ,,,, CENTER [facility] Specimen Performing Organization Address [facility]# [id number] [place] [address] [facility] [address] [place] [address] * XR THORACIC SPINE 3 VW (10/18/2009 2:05 PM REGULATORY AUDITOR) Specimen Impressions Performed At : No acute bony abnormalities identified involving the thoracic spine. Narrative Performed At Reason For Exam: Trauma THORACIC SPINE AP and lateral views of the thoracic sp ine were obtained. Examination was obtained for back pain and history of t rauma. No acute bony abnormality is identified involving the thoracic spine. Moderate bony demineralization is noted . Mild degenerative change is noted invol ving the thoracic spine. Procedure Note Wally Sharpe MD - 10/18/2009 4:08 PM REGULATORY AUDITOR Reason For Exam: Trauma THORACIC SPINE AP and lateral views of the thoracic spine were obtained. Examination was obtained for back pain and history of trauma. No acute bony abnormality is identified involving the thoracic spine. Moderate bony demineralization is noted. Mild degenerative change is noted involving the thoracic spine. IMPRESSION: No acute bony abnormalities identified involving the thoracic spine. * TROPONIN (10/18/2009 12:50 PM REGULATORY AUDITOR) TROPONIN I LESS THAN 0.04Comment: 0 - 0.4 ng/ml [facility] ACCT#[id number], ,,,, [facility] Specimen Performing Organization Address [facility] Ph one Number INTERFACE [facility] CLIA# [id number] [place] [address] [facility] [address] [place] [address] * MYOGLOBIN (10/18/2009 12:50 PM REGULATORY AUDITOR) MYOGLOBIN, 27Comment: [facility]H 16 - 97 ng/ml [facility] ACCT#[id number], ,,,, CENTER [facility] Specimen Performing Organization Address [facility] Ph one Number INTERFACE SYSTEM [facility] CLIA# [id number] [facility] [place] [address] [facility] [address] [place] [address] * XR CHEST PA OR AP (10/18/2009 10:03 AM REGULATORY AUDITOR) Specimen Impressions Performed At : No acute abnormality is identified in t he chest. Narrative Performed At Reason For Exam: Chest Pain PORTABLE CHEST: A portable view of the chest was obtain ed and is compared with 03-27-09. There are postoperative changes noted w ith previous midline sternotomy. There are changes of COPD. There is n o evidence of pneumonia, congestive failure or pneumothorax. Procedure Note Wally Sharpe MD - 10/18/2009 2:22 PM REGULATORY AUDITOR Reason For Exam: Chest Pain PORTABLE CHEST: A portable view of the chest was obtained and is compared with 03-27-09. There are postoperative changes noted with previous midline sternotomy. There are changes of COPD. There is no evidence of pneumonia, congestive failure or pneumothorax. IMPRESSION: No acute abnormality is identified in the chest. * TROPONIN (10/18/2009 9:40 AM REGULATORY AUDITOR) [facility] TROPONIN I LESS THAN 0.04Comment: 0 - 0.4 ng/ml [facility] ACCT#[id number], ,,,[facility] Specimen Performing Organization Address [facility] Number INTERFACE [facility] CLIA# [id number] [place] S [address] [facility] [address] [place] [address] * MYOGLOBIN (10/18/2009 9:40 AM REGULATORY AUDITOR) [facility] MYOGLOBIN, 26Comment: [facility] 16 - 97 ng/ml [facility] ACCT#[id number], ,,,, [facility] Specimen Performing Organization Address [facility] Ph one Number INTERFACE [facility] CLIA# [id number] [facility], [place] [address] [facility] [address] [place] [address] * COMPREHENSIVE METABOLIC PANEL (10/18/2009 9:40 AM REGULATORY AUDITOR) [facility] GLUCOSE 243 (H) 70 - 110 mg/dl [facility] LAB BUN 15.0 7 - 20 mg/dl [facility] CREATININE 0.95 0.8 - 1.3 mg/dl [facility] BUN/CREAT RATIO 15.8 10 - 20 [facility] GFR 86 >90 ml/min [facility] SODIUM 137 135 - 145 mmol/L [facility] POTASSIUM 4.2 3.3 - 4.8 mmol/L [facility] CHLORIDE 103 98 - 107 mmol/L [facility] CO2 27.1 22 - 31 mmol/L [facility] LAB ANION GAP 11 4 - 20 [facility] CALCIUM 8.7 8.5 - 10.1 mg/dl [facility] ALBUMIN 4.1 3.4 - 5.0 g/dl [facility] TOTAL PROTEIN 6.7 6.4 - 8.2 g/dl [facility] GLOBULIN (CALC) 2.6 [facility] ALBUMIN/GLOBULI 1.6 [facility] BILIRUBIN TOTAL 0.3 <1.1 mg/dl [facility] ALKALINE 89 50 - 136 IU/L [facility] PHOSPHATASE [place] [facility] AST 20 10 - 40 IU/L [facility] ALT 36Comment: [facility],[place] 25 - 70 IU/L [facility] ACCT#[id number], ,,,, CENTER [facility] Specimen Blood specimen (specimen) Performing Organization Address City/State/Zipcode Ph one Number INTERFACE SYSTEM [facility] CLIA# [id number] [place] S [address] [facility] [address] [facility] * CBC WITH DIFFERENTIAL (10/18/2009 9:40 AM REGULATORY AUDITOR) WBC 5.87 3.0 - 10.4 x10E3 [facility] RBC 4.47 4.15 - 5.75 x10E6 [facility] HEMOGLOBIN 13.0 (L) 13.8 - 17.4 g/dL [facility] HEMATOCRIT 37.3 (L) 38.6 - 49.4 % [facility] MCV 83.4 79 - 100 fL [facility] MCH 29.2 28 - 34 pg [facility] MCHC 35.0 33 - 36 g/dL [facility] RDW 13.9 12.1 - 14.1 % [facility] PLATELETS 308 148 - 408 x10E3 [facility] MPV 6.4 (L) 7.4 - 10.6 fL [facility] NEUTROPHILS 69.8 43 - 73 % [facility] LYMPHOCYTES 21.0 19 - 47 % [facility] MONOCYTES 5.9 3 - 9 % [facility] EOSINOPHILS 3.0 0 - 6 % [facility] BASOPHILS 0.2 0 - 1.2 % [facility] NEUTROPHIL 4.10 1.3 - 7.6 x10E3 [facility] LYMPHOCYTE 1.24 0.6 - 4.9 x10E3 [facility] MONOCYTE 0.35 0.1 - 0.9 x10E3 [facility] EOSINOPHIL 0.18 0.0 - 0.2 x10E3 [facility] BASOPHILS 0.01Comment: GAB JUAN 0 - 0.1 x10E3 [facility] ABSOLUTE ACCT#[id number], ,,,, CENTER [facility] Specimen Blood specimen (specimen) Performing Organization Address City/[facility]/Zipcode Ph one Number INTERFACE SYSTEM [facility] HOLMANIA# [id number] [place] JE[place] [address] [facility] [address] [place] [address] * BRAIN NATRIURETIC PEPTIDE, BNP OR PROBNP (10/18/2009 9:40 AM REGULATORY AUDITOR) BRAIN 111Comment: [facility] LYNN 0 - 125 pg/ml [facility] NATRIURETIC ACCT#[id number], ,,,, CENTER [facility] ASTRID [facility] Specimen Blood specimen (specimen) Performing Organization Address City/[facility] Ph one Number INTERFACE SYSTEM [facility] HOLMANIA# [id number] [place] [address] [facility] [address] [place] [address] documented in this encounter Visit Diagnoses Diagnosis Chest pain Chest pain, unspecified Back pain Backache, unspecified documented in this encounter Administered Medications Action Date Dose Rate Site Medication Order MAR Action 10/19/2009 3:14 AM REGULATORY AUDITOR 0.5 mg alprazolam (XANAX) tablet 0.5 mg Given 0.5 mg, Oral, EVERY 8 HOURS PRN, Starting 10/19/09 at 0303, Until Sa t 10/19/09 at 1425, Anxiety, Routine 10/19/2009 8:25 AM REGULATORY AUDITOR 324 mg aspirin (AMELIA CHEWABLE) chew tablet 324 Given mg 324 mg, Oral, DAILY, First dose on Wed10/18/09 at 0945, Until Discontinued, Routine 324 mg Given 10/18/2009 9:51 AM REGULATORY AUDITOR 10/19/2009 6:54 AM REGULATORY AUDITOR 0.5 mg budesonide (PULMICORT RESPULE) 0.5 mg/2 Given mL inhalation solution 0.5 mg 0.5 mg, Inhalation, TWICE DAILY RESPIRATORY, First dose on Wed10/18/09 at 2100, Until Discontinued, Routine, Sub for Aerobid, 0.5 mg Given 10/18/2009 9:22 PM REGULATORY AUDITOR 10/19/2009 8:25 AM REGULATORY AUDITOR 75 mg clopidogrel (PLAVIX) tablet 75 mg Given 75 mg, Oral, DAILY, First dose on Wed10/19/09 at 0900, Until Discontinued, Routine, Previous Med: clopidogrel (PLAVIX) 75 mg Oral Tab - Orig Sig - Take 1 Tab by mouth daily., 10/18/2009 2:10 PM REGULATORY AUDITOR 40 mg Abdomen, Left Lower Quadrant enoxaparin (LOVENOX) injection 40 mg Given 40 mg, subCUT, DAILY, First dose on Wed10/18/09 at 1345, Until Discontinued, Routine 10/18/2009 9:06 PM REGULATORY AUDITOR 20 Units Arm, Lef t Upper insulin glargine (LANTUS) 100 unit/mL Given injection 20 Units 20 Units, subCUT, DAILY AT BEDTIME, First dose on Wed10/18/09 at 2100, Until Discontinued, Routine, Previous Med: insulin glargine (LANTUS) 100 unit/mL subCUT Soln - Orig Sig - Inject by subcutaneous injection. 20 units at hs., 10/19/2009 8:24 AM REGULATORY AUDITOR 60 mg isosorbide mononitrate (IMDUR) tablet 60 Given mg 60 mg, Oral, TWO TIMES DAILY, First dos e on Wed10/18/09 at 2100, Until Discontinued, Routine, Previous Med: isosorbide mononitrate (IMDUR) 60 mg Oral Tb24 - Orig Sig - Take 1 Tab by mouth 2 times daily., 60 mg Given 10/18/2009 8:48 PM REGULATORY AUDITOR 10/18/2009 11:02 AM REGULATORY AUDITOR 30 mg ketorolac (TORADOL) injection 30 mg Given 30 mg, IV, ONE TIME ONLY, 1 dose, Wed10/18/09 at 1100, Stat 10/18/2009 4:39 PM REGULATORY AUDITOR 500 mg levofloxacin (LEVAQUIN) tablet 500 mg Given 500 mg, Oral, DAILY, First dose (after last modification) on Wed10/18/09 at 1645, Until Discontinued, Routine, Previous Med: levofloxacin (LEVAQUIN) 500 mg Oral Tab - Orig Sig - Take 1 Tab by mouth daily., 10/18/2009 10:24 AM REGULATORY AUDITOR 1 mg lorazepam (ATIVAN) 2 mg/mL injection 1 Given mg 1 mg, IV, ONE TIME ONLY, 1 dose, Wed10/18/09 at 1030, Routine 10/19/2009 8:36 AM REGULATORY AUDITOR 64 mg magnesium chloride (SLOW-MAG) tablet 64 Given mg 64 mg, Oral, THREE TIMES DAILY, First dose on Wed10/18/09 at 1500, Until Discontinued, Routine, Previous Med: magnesium chloride (SLOW-MAG) 64 mg Ora l TbSR - Orig Sig - Take 64 mg by mouth 3 times daily. , 64 mg Given 10/18/2009 9:04 PM REGULATORY AUDITOR 64 mg Given 10/18/2009 3:12 PM REGULATORY AUDITOR 10/18/2009 1:47 PM REGULATORY AUDITOR 125 mg methylPREDNISolone sodium succinate Given (SOLU-MEDROL) injection 125 mg 125 mg, IV, ONE TIME ONLY, 1 dose, Wed10/18/09 at 1315, Routine 10/19/2009 8:24 AM REGULATORY AUDITOR 25 mg metoprolol succinate (TOPROL-XL) tablet Given 25 mg 25 mg, Oral, DAILY, First dose on 10/19/09 at 0900, Until Discontinued, Routine 10/19/2009 2:44 AM REGULATORY AUDITOR 2 mg MORphine 2 mg/mL injection 2 mg Given 2 mg, IV, EVERY 1 HOUR PRN, Starting Fr i 10/18/09 at 1009, Until 10/19/09 at 1425, Chest Pain, Routine 2 mg Given 10/18/2009 10:30 PM REGULATORY AUDITOR 2 mg Given 10/18/2009 8:49 PM REGULATORY AUDITOR 10/18/2009 11:02 AM REGULATORY AUDITOR 2 mg MORphine 2 mg/mL injection 2 mg Given 2 mg, IV, ONE TIME ONLY, 1 dose, Wed10/18/09 at 1100, Routine 10/18/2009 11:48 AM REGULATORY AUDITOR 2 mg MORphine 2 mg/mL injection 2 mg Given 2 mg, IV, ONE TIME ONLY, 1 dose, Wed10/18/09 at 1200, Routine 10/18/2009 12:27 PM REGULATORY AUDITOR 2 mg MORphine 2 mg/mL injection 2 mg Given 2 mg, IV, ONE TIME ONLY, 1 dose, Wed10/18/09 at 1230, Routine 10/18/2009 9:51 AM REGULATORY AUDITOR 0.4 mg nitroglycerin (NITROSTAT) tablet 0.4 mg Given 0.4 mg, Sublingual, EVERY 5 MINUTES PRN , 3 doses, Starting Wed10/18/09 at 0942, Until Wed10/18/09 at 1417, Chest Pain, Routine 10/19/2009 2:41 AM REGULATORY AUDITOR 0.4 mg nitroglycerin (NITROSTAT) tablet 0.4 mg Given 0.4 mg, Sublingual, EVERY 5 MINUTES PRN , Starting 10/19/09 at 0230, Until Sa t 10/19/09 at 1425, Chest Pain, Routine 0.4 mg Given 10/19/2009 2:35 AM REGULATORY AUDITOR 10/18/2009 1:47 PM REGULATORY AUDITOR 40 mg pantoprazole (PROTONIX) injection 40 mg Given 40 mg, IV, DAILY, First dose on Wed10/18/09 at 1345, Until Discontinued, Stat 10/19/2009 8:24 AM REGULATORY AUDITOR 200 mg phenytoin (DILANTIN) capsule 200 mg Given 200 mg, Oral, TWO TIMES DAILY, First dose on Wed10/18/09 at 2100, Until Discontinued, Routine, Previous Med: phenytoin (PHENYTEK) 200 mg Oral Cap - Orig Sig - Take 1 Cap by mouth 2 times daily., 200 mg Given 10/18/2009 8:49 PM REGULATORY AUDITOR 10/18/2009 4:15 PM REGULATORY AUDITOR 10 mg ramipril (ALTACE) capsule 10 mg Given 10 mg, Oral, DAILY, First dose on Wed10/18/09 at 1430, Until Discontinued, Routine, Previous Med: ALTACE 10 mg Ora l Cap - Orig Sig - Take 10 mg by mouth daily. At noon , 10/19/2009 8:27 AM REGULATORY AUDITOR 3 mL sodium chloride 0.9 % flush injection 3 Given mL 3 mL, IV, TWO TIMES DAILY, First dose o n Wed10/18/09 at 0945, Until Discontinued, Routine 3 mL Given 10/18/2009 8:49 PM REGULATORY AUDITOR 10/18/2009 9:54 AM REGULATORY AUDITOR 3 mL SODIUM CHLORIDE 0.9 % SYRINGE Given 1 dose, Starting Wed10/18/09 at 0936, Until Wed10/18/09 at 0954, Created by cabinet override pull, 10/18/2009 10:30 PM REGULATORY AUDITOR 10 mg zolpidem (AMBIEN) tablet 10 mg Given 10 mg, Oral, NIGHTLY PRN, Starting Wed10/18/09 at 2141, Until 10/19/09 at 1425, Insomnia, Routine documented in this encounter
--- OUTSIDE RECORDS SUMMARY | 2020-03-24 14:43 | XMS REPORT | Encounter Summary ---
Author Author [facility] Organization [facility] Address Unknown Phone Unavailable Care Team Providers Care Airdox Fitter Name Role Phone Shahram Mccallum MD PCP Unavailable Encounter Details Care Team Description Date Type Department Nuris Miramontes DM w/o Complication Type I (Primary Dx) 10/17/2009 Orders Only [facility] Primar y Care [place] [address] [place] [phone] Social History Date Tobacco Use [...] of this encounter Visit Diagnoses Diagnosis Type I (juvenile type) diabetes mellitu s without mention of complication, not stated as uncontrolled - Primary documented in this encounter
--- OUTSIDE RECORDS SUMMARY | 2020-03-24 14:43 | XMS REPORT | Encounter Summary ---
Author Author [facility] Organization [facility] Address Unknown Phone Unavailable Care Team Providers Care Brush Clearer Surveying Name Role Phone Shahram Mccallum MD PCP Unavailable Reason for Visit * Reason Comments Medication Refill Encounter Details Care Team Description Date Type Department Shahram Mccallum MD NO ADDRESS ON FILE 12/11/2009 Refill [facility] Primar y Care [address] [phone] Social History Date Tobacco Use Types Packs/Day [...]
--- OUTSIDE RECORDS SUMMARY | 2020-03-24 14:44 | XMS REPORT | Encounter Summary ---
Author Author [facility] Organization [facility] Address Unknown Phone Unavailable Care Team Providers Care Fitness Trainer Name Role Phone Shahram Mccallum MD PCP Unavailable Reason for Visit * Reason Comments Medication Refill Encounter Details Care Team Description Date Type Department Shahram Mccallum MD NO ADDRESS ON FILE 07/31/2009 Refill [facility] Primar y Care [address] [phone] Social History Date Tobacco Use Types Packs/Day [...]
--- OUTSIDE RECORDS SUMMARY | 2020-03-24 14:44 | XMS REPORT | Encounter Summary ---
Author Author [facility] Organization [facility] Address Unknown Phone Unavailable Care Team Providers Care Business Services Administrator Name Role Phone Shahram Mccallum MD PCP Unavailable Reason for Visit * Reason Comments Medication Refill Encounter Details Care Team Description Date Type Department Shahram Mccallum MD NO ADDRESS ON FILE 08/21/2009 Refill [facility] Primar y Care [address] [phone] Social History Date Tobacco Use Types Packs/Day [...]
--- OUTSIDE RECORDS SUMMARY | 2020-03-24 14:44 | XMS REPORT | Encounter Summary ---
Author Author [facility] Organization [facility] Address Unknown Phone Unavailable Care Team Providers Care Sheep Or Calf Grader Name Role Phone Shahram Mccallum MD PCP Unavailable Reason for Visit * Reason Comments Diabetes Encounter Details Care Team Description Date Type Department Shahram Mccallum MD NO ADDRESS ON FILE DM w/o Complication Type I; Chronic Airway Obstruction, not Elsewhere Classified; Hyperlipidemia; Anemia; Unspecified Essential Hypertension; Cor Athrscl-Uns Vessel; Anxiety State 05/16/2009 Office Visit [facility] [address] [phone] Social History Date Tobacco Use Types Packs/Day [...] Reading Time Taken Comments Vital Sign 128/74 05/16/2009 10:36 AM CDT Blood Pressure 64 05/16/2009 10:36 AM CDT Pulse - - Temperature - - Respiratory Rate - - Oxygen Saturation - - Inhaled Oxygen Concentration 98 kg (216 lb) 05/16/2009 10:36 AM CDT Weight - - Height 31.9 03/27/2009 10:05 AM CDT Body Mass Index documented in this encounter Progress Notes * Shahram Mccallum MD - 05/16/2009 11:06 AM CDT Subjective: Oliverio Dalton is a 58 y.o. male. Patient Active Problem List Diagnoses [...] Dispense Refill lorazepam (ATIVAN) 1 mg Oral Tab Take 1 Tab by mouth every 8 hours as needed . 30 Tab 0 zolpidem (AMBIEN) 10 mg Oral Tab Take 1 Tab by mouth nightly as needed for I nsomnia. 30 Tab 0 pioglitazone (ACTOS) 30 mg Oral Tab Take [...] mouth 2 times daily. 60 Cap 5 PROZAC 40 mg Oral Cap Take 40 mg by mouth daily. simvastatin (ZOCOR) 80 mg Oral Tab Take 1 Tab by mouth daily at bedtime. 30 Tab 5 bethanechol (URECHOLINE) 25 mg Oral Tab Take 1 Tab by mouth 4 times daily. 120 Tab 5 esomeprazole (NEXIUM) 40 mg Oral CpDR Take 1 Cap by mouth daily before a delmi l. 30 Cap 11 isosorbide mononitrate (IMDUR) 60 mg Oral Tb24 Take 1 Tab by mouth 2 times d aily. 60 Tab 5 oxaprozin (DAYPRO) 600 mg Oral Tab Take 1 Tab by mouth daily. 30 Tab 5 FLONASE 50 mcg/Actuation Both Nostril SpSn Administer 2 Sprays in each nostr il daily. insulin glargine (LANTUS) 100 unit/mL subCUT Soln Inject by subcutaneous in jection. 20 units at hs. 10 mL 5 ASPIRIN EC 81 mg Oral TbEC Take 81 mg by mouth daily. FLOMAX 0.4 mg Oral Cp24 Take 0.4 mg by mouth daily. 30 min. After supper flaxseed Oil 1,000 mg Oral Cap Take 1000 mg by mouth 3 times daily. loratadine (CLARITIN) 10 mg Oral Tab Take 10 mg by mouth daily. magnesium chloride (SLOW-MAG) 64 mg Oral [...] Drop in both eyes 2 times daily. Fhrmnka-Dhjiigsff-Ktyl Oral Tab Take by mouth 2 times [...] Lab Results Component Value Date/Time HEMOGLOBIN A1C 6.4 05/09/09 7:27 AM HEMOGLOBIN A1C 6.0 02/06/09 8:04 AM HEMOGLOBIN A1C 6.7 10/29/08 7:25 AM LDL CALCULATED 0 06/29/08 3:50 AM LDL CHOLESTEROL, DIRECT 140 05/09/09 7:27 AM CREATININE 0.80 05/09/09 7:27 AM Lab Results Component Value Date/Time CHOLESTEROL 241 05/09/09 7:27 AM CHOLESTEROL 216 02/06/09 8:04 AM CHOLESTEROL 231 10/29/08 7:25 AM HDL 48 05/09/09 7:27 AM HDL 49 02/06/09 8:04 AM HDL 60 10/29/08 7:25 AM LDL CALCULATED 0 06/29/08 3:50 AM LDL CALCULATED 0 04/26/06 5:45 AM LDL CHOLESTEROL, DIRECT 140 05/09/09 7:27 AM LDL CHOLESTEROL, DIRECT 145 02/06/09 8:04 AM LDL CHOLESTEROL, DIRECT 143 10/29/08 7:25 AM TRIGLYCERIDE 326 05/09/09 7:27 AM TRIGLYCERIDE 233 02/06/09 8:04 AM TRIGLYCERIDE 191 10/29/08 7:25 AM ALT 38 05/09/09 7:27 AM AST 20 05/09/09 7:27 AM Lab Results Component Value Date/Time CREATININE 0.80 05/09/09 7:27 AM BUN 27.0 05/09/09 7:27 AM SODIUM 136 05/09/09 7:27 AM POTASSIUM 4.4 05/09/09 7:27 AM CHLORIDE 100 05/09/09 7:27 AM CO2 28.6 05/09/09 7:27 AM GFR 105 05/09/09 7:27 AM Lab Results Component Value Date/Time ALT 38 05/09/09 7:27 AM AST 20 05/09/09 7:27 AM ALKALINE PHOSPHATASE 55 05/09/09 7:27 AM BILIRUBIN TOTAL 0.3 05/09/09 7:27 AM HPI: Mr. Dalton complains of the following (by systems): Chest Pain symptoms: none Diabetes Type II complaints: medication compliance: compliant all of the time, diabetic diet compliance: noncompliant some of the time, home glucose monitorin g: is performed sporadically Hypertension related symtoms/issues: taking medications as instructed, no side effects of medications, no chest pain on exertion, no dyspnea on exertion, no e sharon eating more overall calories and lipid and a1c reflect that. no med intolerance Review of Systems: ROS Denies all of the following: Headache Dizziness Chest pain Shortness of breath Bowel changes Bladder changes Pain in muscle or joints: R shoulder / scapula pain post fall. Recurrent but not progressive. Does have episodes of anxiety restless but overall stable on meds Exam/Objective: Normal Exam for Routine Visits: \Blood pressure 128/74, pulse 64, weight 216 lb (97.977 kg). General appearance: active, alert, cooperative, no distress, social, normally n ourished, and in no acute distress Lungs: breath sounds equal, clear to auscultation bilaterally, no retractions, n o stridor, normal respiratory effort Heart: regular rate and rhythm, S1, S2 normal, no murmur, click, rub, gallop, or abnormal sounds. Abdomen: soft, non-tender. Bowel sounds normal. No masses, no organomegaly. Ac tive bowel sounds. Extremities: symmetrical non edematous. Sl tender R scapula Discussed ED and danger of viagra. Assessment and Plan: ASSESSMENT: Encounter Diagnoses Name Primary? DM w/o Complication Type I Chronic Airway Obstruction, not Elsewhere Classified Hyperlipidemia Anemia Unspecified Essential Hypertension Cor Athrscl-Uns Vessel Anxiety State PLAN: No orders of the defined types were placed in this encounter. ice and heat to shoulder Cont med regimen Exercise More reg accu and review next visit No viagra Appropriate medications prescribed (see detailed AVS). Appropriate [...] mention of complication, not stated as uncontrolled Chronic airway obstruction, not elsewhe re classified Hyperlipidemia Other and unspecified hyperlipidemia Anemia Anemia, unspecified Unspecified essential hypertension Coronary atherosclerosis of unspecified type of vessel, mi'kmaq or graft Anxiety state Anxiety state, unspecified documented in this encounter
--- OUTSIDE RECORDS SUMMARY | 2020-03-24 14:44 | XMS REPORT | Encounter Summary ---
Author Author [facility] Organization [facility] Address Unknown Phone Unavailable Care Team Providers Care Aerobics Instructor Name Role Phone Shahram Mccallum MD PCP Unavailable Reason for Visit * Reason Comments Medication Refill Encounter Details Care Team Description Date Type Department Self, Aries Montelongo MD [address] [place] [phone] 05/01/2009 Refill [facility] [place] [address] [place] [address] Social History Date Tobacco Use [...]
--- OUTSIDE RECORDS SUMMARY | 2020-03-24 14:44 | XMS REPORT | Encounter Summary ---
Author Author [facility] Organization [facility] Address Unknown Phone Unavailable Care Team Providers Care Safety Equipment Tester Name Role Phone Shahram Mccallum MD PCP Unavailable Encounter Details Care Team Description Date Type Department Walter Oconnor MD [address] [facility] [address] [place], [place] [id number] [facility], Lab Schedule 08/16/2009 [facility] General Encounter Laboratory Services [address] [phone] Social History Date Tobacco Use [...] Drop in both eyes 2 times daily. 08/07/2009 10/30/2009 zolpidem (AMBIEN) 10 mg [...] Cp24 mouth daily. 30 min. After supper 07/09/2009 09/18/2009 lorazepam (ATIVAN) 1 mg Take 1 Tab by 60 Tab 1 Oral TabIndications: mouth 2 times Anxiety state daily. 06/26/2009 12/25/2009 isosorbide mononitrate Take 1 Tab [...] subcutaneous injection. 20 units at hs. 12/29/2007 08/21/2009 loratadine (CLARITIN) 10 Take 10 mg by 0 mg Oral Tab mouth daily. 12/29/2007 08/04/2011 TRICOR 145 mg Oral Tab Take 145 mg 0 by mouth daily with supper. 12/29/2007 07/12/2012 ZETIA 10 mg Oral Tab Take 10 mg by 0 mouth daily at bedtime. 09/10/2010 04/26/2018 MULTIVITAMIN PO Take 1 Tab by 0 mouth daily with lunch. 12/29/2007 10/18/2009 Bkgxtiz-Qhrgdwlpo-Maic Take by mouth 0 Oral Tab 2 times daily. 02/14/2008 08/30/2012 ACCU-CHEK ACTIVE TEST by See Admin 0 Strp Instructions route 2 times daily. In the am & pm prn 02/14/2008 10/30/2009 TOPROL XL PO Take 25 mg by 0 mouth daily. documented as of this encounter Miscellaneous Notes * Scanned Form - Aok Andie, Johnnie Physician - 08/19/2009 1:12 PM CDT documented in this encounter Plan of Treatment Not on filedocumented as of this encounter Procedures Comments Procedure Name Priority Date/Time Associated Diag nosis LIPID PANEL Routine 08/16/2009 Unspecified Ess ential 7:56 AM CDT Hypertension Other and Unspecified Hyperlipidemia COMPREHENSIVE METABOLIC Routine 08/16/2009 Unspec ified Essential PANEL 7:56 AM CDT Hypertension Other and Unspecified Hyperlipidemia documented in this encounter Results * COMPREHENSIVE METABOLIC PANEL (08/16/2009 7:56 AM CDT) GLUCOSE 140 (H) 70 - 110 mg/dl [facility] BUN 21.0 (H) 7 - 20 mg/dl [facility] CREATININE 0.95 0.8 - 1.3 mg/dl [facility] BUN/CREAT RATIO 22.1 (H) 10 - [address] [facility] GFR 86 >90 ml/min [facility] SODIUM 138 135 - 145 mmol/L [facility] POTASSIUM 4.6 3.3 - 4.8 mmol/L [facility] CHLORIDE 103 98 - 107 mmol/L [facility] CO2 29.2 22 - 31 mmol/L [facility] ANION GAP 10 4 - [address] [facility] CALCIUM 9.2 8.5 - 10.1 mg/dl [facility] ALBUMIN 4.3 3.4 - 5.0 g/dl [facility] TOTAL PROTEIN 7.3 6.4 - 8.2 g/dl [facility] GLOBULIN (CALC) 3.[address] [facility] ALBUMIN/GLOBULI 1.4 [facility] BILIRUBIN TOTAL 0.3 <1.1 mg/dl [facility] ALKALINE 59 50 - 136 IU/L [facility] PHOSPHATASE [facility] AST 22 10 - 40 IU/L [facility] ALT 38Comment: [facility] 25 - 70 IU/L [facility] ACCT#[id number], ,,,, [facility] Specimen Blood specimen (specimen) Performing Organization Address City/State/Zipcode Ph one Number [facility] CLIA# [id number] [place] [address] [facility] [address] * LIPID PANEL (08/16/2009 7:56 AM CDT) Pathologist [facility] [place] CHOLESTEROL 234 (H) 140 - 200 mg/dl [facility] TRIGLYCERIDE 207 (H) 0 - 199 mg/dl [facility] Comment: [facility] TRIGLYCERIDES NORMAL LESS THAN 150 mg/dl [place] HIGH 150 - 199 mg/dl HIGH 200 - 499 mg/dl VERY HIGH GREATER THAN OR = 500 mg/dl HDL 54 27 - 67 mg/dl [facility] LDL 134 (H) <130 mg/dl [facility] CHOLESTEROL, Comment: [place] [place] [facility] RISK CATEGORY LDL GOAL High risk: <100 mg/dl CHD or CHD risk equivalents (optional goal: <70 mg/dl) (10-year risk > 20%) Moderately high risk <130 mg/dl 2+ risk factors (10-year risk 10% to 20%) Moderate risk: <130 mg/dl 2+ risk factors (10-year risk < 10%) Lower risk: <160 mg/dl 0-1 risk factor [facility] ACCT#[id number], ,,,, Specimen Blood specimen (specimen) Performing Organization Address City/State/Zipcode Ph one Number [facility] MARTINEZ# [id number] [place] [id number] [facility] [address] documented in this encounter Visit Diagnoses Diagnosis Unspecified essential hypertension Other and unspecified hyperlipidemia documented in this encounter
--- OUTSIDE RECORDS SUMMARY | 2020-03-24 14:44 | XMS REPORT | Encounter Summary ---
Author Author [facility] Organization [facility] Address Unknown Phone Unavailable Care Team Providers Care Community Service Manager Name Role Phone Shahram Mccallum MD PCP Unavailable Encounter Details Care Team Description Date Type Department Shahram Mccallum MD NO ADDRESS ON FILE Janell Marie RN 05/17/2009 [facility] F ort Encounter [facility] [address] [place] [address] Social History Date Tobacco Use [...] Drop in both eyes 2 times daily. 05/03/2009 06/05/2009 lorazepam (ATIVAN) 1 mg Take 1 Tab by 30 Tab 0 Oral TabIndications: mouth every 8 Anxiety state hours as needed. 05/01/2009 06/05/2009 zolpidem (AMBIEN) 10 mg Take 1 Tab by 30 Tab 0 Oral Tab mouth nightly as needed for Insomnia. 04/18/2009 04/09/2010 pioglitazone (ACTOS) 30 Take 1 Tab by 30 Tab 11 mg Oral Tab mouth daily. 02/13/2009 02/04/2010 clopidogrel (PLAVIX) 75 Take 1 Tab by 30 Tab 11 mg Oral Tab mouth daily. 02/13/2009 08/07/2009 phenytoin (PHENYTEK) 200 Take 1 Cap by 60 Cap 5 mg Oral Cap mouth 2 times daily. 10/30/2009 PROZAC 40 mg Oral Cap Take 40 mg by 0 mouth daily. 01/23/2009 08/04/2011 simvastatin (ZOCOR) 80 mg Take 1 Tab by 30 Tab 5 Oral Tab mouth daily at bedtime. 01/23/2009 07/31/2009 bethanechol (URECHOLINE) Take 1 Tab by 120 Tab 5 25 mg Oral Tab mouth 4 times daily. 01/07/2009 12/11/2009 esomeprazole (NEXIUM) 40 Take 1 Cap by 30 Cap 11 mg Oral CpDR mouth daily before a meal. 12/19/2008 06/26/2009 isosorbide mononitrate Take 1 Tab by 60 Tab 5 (IMDUR) 60 mg Oral Tb24 mouth 2 times daily. 12/05/2008 06/05/2009 oxaprozin (DAYPRO) 600 mg Take 1 Tab by 30 Tab 5 Oral Tab mouth daily. 03/15/2012 FLONASE 50 mcg/Actuation Administer 2 0 Both Nostril SpSn Sprays in each nostril daily. 10/18/2008 03/05/2010 insulin glargine (LANTUS) Inject by 10 mL 5 100 unit/mL subCUT Soln subcutaneous injection. 20 units at hs. 12/29/2007 07/24/2009 FLOMAX 0.4 mg Oral Cp24 Take 0.4 mg 0 by mouth daily. 30 min. After supper 12/29/2007 08/21/2009 loratadine (CLARITIN) 10 Take 10 mg by 0 mg Oral Tab mouth daily. 12/29/2007 08/04/2011 TRICOR 145 mg Oral Tab Take 145 mg 0 by mouth daily with supper. 12/29/2007 07/12/2012 ZETIA 10 mg Oral Tab Take 10 mg by 0 mouth daily at bedtime. 09/10/2010 04/26/2018 MULTIVITAMIN PO Take 1 Tab by 0 mouth daily with lunch. 12/29/2007 10/18/2009 Qnovctr-Faiyfojzi-Nomk Take by mouth 0 Oral Tab 2 times daily. 02/14/2008 08/30/2012 ACCU-CHEK ACTIVE TEST by See Admin 0 Strp Instructions route 2 times daily. In the am & pm prn 02/14/2008 10/30/2009 TOPROL XL PO Take 25 mg by 0 mouth daily. documented as of this encounter Progress Notes * Janell Marie, RN - 05/17/2009 10:00 AM CDT OP WOCN to trim diabetic toenails. No corns or callous noted. Denies any problem s with blood sugar levels. documented in this encounter Plan of Treatment Not on filedocumented as of this encounter Visit Diagnoses Not on filedocumented in this encounter
--- OUTSIDE RECORDS SUMMARY | 2020-03-24 14:44 | XMS REPORT | Encounter Summary ---
Author Author [facility] Organization [facility] Address Unknown Phone Unavailable Care Team Providers Care Conveyor Mechanic Name Role Phone Shahram Mccallum MD PCP Unavailable Reason for Visit * Reason Comments Medication Refill Encounter Details Care Team Description Date Type Department Jada Fernandez MD NO ADDRESS ON FILE Anxiety State 06/05/2009 Refill [facility] Primar y Care [address] [phone] Social History Date Tobacco Use Types Packs/Day [...] as of this encounter Visit Diagnoses Diagnosis Anxiety state Anxiety state, unspecified documented in this encounter
--- OUTSIDE RECORDS SUMMARY | 2020-03-24 14:44 | XMS REPORT | Encounter Summary ---
Author Author [facility] Organization [facility] Address Unknown Phone Unavailable Care Team Providers Care Information Security Systems Instructor Name Role Phone Shahram Mccallum MD PCP Unavailable Reason for Visit * Reason Comments Chest Pain Started having pain in his chest more so on the left axillary area. Pt reported to have fallen yesterday at [facility]. Has cardiac history of bypass and sevaral stents. Encounter Details Care Team Description Date Type Department Danii Reynolds MD NO ADDRESS ON FILE Contusion, Chest Wall 03/27/2009 Emergency [facility] [address] [id number] Social History Date Tobacco Use Types Packs/Day [...] Signs Reading Time Taken Comments Vital Sign 137/70 03/27/2009 10:05 AM CDT Blood Pressure 67 03/27/2009 10:05 AM CDT Pulse 37.1 C (98.7 F) 03/27/2009 8:49 AM CDT Temperature 13 03/27/2009 10:05 AM CDT Respiratory Rate 99% 03/27/2009 10:05 AM CDT Oxygen Saturation - - Inhaled Oxygen Concentration 97.5 kg (215 lb) 03/27/2009 10:05 AM CDT Weight 175.3 cm (5' 9") 03/27/2009 10:05 AM CDT Height 31.75 03/27/2009 10:05 AM CDT Body Mass Index documented in this encounter Discharge Instructions * Instructions* Danii Reynolds MD - 03/27/2009 Follow up in 3 to 5 days or return with any worsening. * Attachments The following attachments cannot be sent through Care Everywhere.* Musculoskeletal Chest Pain: After Your Visit documented in this encounter Medications at Time of Discharge Start Date End Date Medication Sig Dispensed Refills 12/29/2007 BETIMOL 0.5 % OP Drop Administer 1 0 Drop in both eyes 2 times daily. 02/13/2009 05/03/2009 lorazepam (ATIVAN) 1 mg Take 1 Tab by 30 Tab 2 Oral TabIndications: mouth every 8 Anxiety state hours as needed. 02/13/2009 02/04/2010 clopidogrel (PLAVIX) 75 Take 1 [...] 30 Tab 5 Oral Tab mouth daily. 11/21/2008 04/03/2009 zolpidem (AMBIEN) 10 mg Take 1 Tab by 30 Tab 3 Oral Tab mouth nightly as needed for Insomnia. 04/18/2009 ACTOS 30 mg Oral Tab Take 30 mg by 0 mouth daily. 03/15/2012 FLONASE 50 mcg/Actuation Administer [...] 0 mouth daily with lunch. 12/29/2007 10/18/2009 Dpvkjdr-Wosftotzk-Pwtq Take by mouth 0 Oral Tab 2 times daily. 02/14/2008 08/30/2012 ACCU-CHEK ACTIVE TEST by See Admin 0 Strp Instructions route 2 times daily. In the am & pm prn 02/14/2008 10/30/2009 TOPROL XL PO Take 25 mg by 0 mouth daily. documented as of this encounter Procedure Notes * Aok Scanning, [facility] Physician - 03/28/2009 10:39 AM CDT Associated Order(s): EKG 12-LEAD; EKG 12-LEAD * Aok Scanning, [facility] Physician - 03/28/2009 10:36 AM CDT Associated Order(s): TELEMETRY REPORT; TELEMETRY REPORT * David Ferrer MD - 03/28/2009 9:47 AM CDT Associated Order(s): ECG REPORT; ECG REPORT [facility]. [address] [place] [address] EKG OLIVERIO TINSLEY [id number] 03/27/09 at 0859. The rhythm is regular, sinus in origin with a rate of 71 beats per minute. T waves are flattened across the tracing. There is slow R wave progression through V3 across the chest. Com pared with previous tracing dated 01-28-09, complexes are similar. Diagnosis: 1) Sinus rhythm, rate 71 beats per minute. 2) Low voltage limb leads. 3) Nonspecifi c T wave flattening. 4) Slow R wave progression, septal chest leads, old anteros eptal wall myocardial infarct cannot be completely ruled out. Dictated by S.JericaW. Dictated by: EKG DD 03/28/09 TD 03/28/09/LRG EKG REPORT # [id number] ORDER # documented in this encounter ED Notes * Willy Chaves, [facility] Physician - 03/28/2009 12:40 PM CDT * Trinh Corona RN - 03/27/2009 10:44 AM CDT Pt given script for Hydrocodone to take every 4 hours as needed for pain. Pt di scharged from ER and left via wheelchair by PRIYA Acevedo and caregiver. * Trinh Corona RN - 03/27/2009 10:[address] Reynolds back in room to see pt. * Kristina Keller RN - 03/27/2009 9:50 AM CDT Pt sleeping soundly. Does not arouse when staff enters room. Waiting on lab re sults. Caregiver remains at bedside with pt. * Trinh Corona RN - 03/27/2009 9:46 AM CDT LE 0912 Radiology here to do chest xray. * Kristina Keller RN - 03/27/2009 9:36 AM CDT Pt visiting with director career services appears in no distress, but when staff enters ro om, pt immediately starts moaning and stating that the pain is coming back. Req uested "a big morphine shot." No change in MP or VS with reported increase in p ain level. * Trinh Corona RN - 03/27/2009 9:26 AM CDT Radiology reports nothing acute on chest xray per Dr. Pedroza. * Trinh Corona RN - 03/27/2009 8:48 AM CDT Pt presents to ER with chest pain. He is moaning and groaning in the registrati on room. Took pt to ER 5. Dr. Reynolds immediately started her assessment on e computer so this development writer is charting assessment after treatment was done. PT s tates he fell yesterday at home in the driveway. He complains of left sided rah st pain more so in the axillary/rib area. Has had shortness of breath at home a nd some diaphoresis. Pt seems to be a little on the anxious side. He moans and then he will carry on a normal conversation with staff. Pt's caregiver at [facility] helping answer historical questions. Pt has history of MR. * Danii Reynolds MD - 03/27/2009 8:45 AM CDT HISTORY OF PRESENT ILLNESS Oliverio Tinsley, a 58 y.o. male presents to the ED with a Chief Complaint of Ch est Pain HPI Comments: Patient tripped and fell from standing 2 days ago, he has had waxi ng and waning left sided chest pain since then. He also has an abrasion on his left knee. Patient is a 58 y.o. male presenting with chest pain. The history is provided by the patient and a caregiver. No automotive parts interpreter was used. Chest Pain This is a new problem. The current episode started 2 days ago. The problem occur s constantly. Progression Since Onset: waxing and waning. The pain is associated with breathing and walking (moving). The pain is present in the lateral region (left lateral). The pain is at a severity of 10/10. The pain is severe. The pain quality is described as sharp. The pain radiates to the left neck. The average episode lasts 2 days. The symptoms are worsened by deep breathing (movements). A ssociated symptoms include diaphoresis, exertional chest pressure, nausea and sh ortness of breath. Pertinent negatives include no fever, no back pain, no lower extremity edema, no cough and no sputum production. Leg pain: 2. dry heaves, leg sorenessThe treatment provided mild relief. Risk factors include a sedentary li festyle, being male, obesity and dyslipidemia (Quit smoking 15 years). His past medical history is significant for DM and HTN. Procedure history is significant for cardiac catheterization. cabg x4, 15 stents He has tried nitroglycerin for the symptoms. REVIEW OF SYSTEMS Review of Systems Constitutional: Positive for diaphoresis. Negative for fever. Respiratory: Positive for shortness of breath. Negative for cough and sputum pro duction. Gastrointestinal: Positive for nausea. Musculoskeletal: Negative for back pain. All other systems reviewed and are negative. [...] surgical other 07/11 Colonoscopy Hx hernia repair 1989 And age 4 Hx heart catheterization 04/10 With angioplasty, 2 stents Hx lap cholecystectomy 05/17/07 Pr colonoscopy,diagnostic 02/01/2009 COLONOSCOPY performed by BEULAH MOORE at [facility] OR Family History Problem Relation Other Mother [...] Piperacillin-tazobactam, Phenobarbital, Terazosin and Codeine HOME MEDICATIONS lorazepam (ATIVAN) 1 mg Oral Tab Take 1 Tab by mouth every 8 hours as needed . clopidogrel (PLAVIX) 75 mg Oral Tab Take 1 Tab by mouth daily. phenytoin (PHENYTEK) 200 mg Oral Cap Take 1 Cap by mouth 2 times daily. PROZAC 40 mg Oral Cap Take 40 mg by mouth daily. simvastatin (ZOCOR) 80 mg Oral Tab Take 1 Tab by mouth daily at bedtime. bethanechol (URECHOLINE) 25 mg Oral Tab Take 1 Tab by mouth 4 times daily. esomeprazole (NEXIUM) 40 mg Oral CpDR Take 1 Cap by mouth daily before a delmi l. isosorbide mononitrate (IMDUR) 60 mg Oral Tb24 Take 1 Tab by mouth 2 times d aily. oxaprozin (DAYPRO) 600 mg Oral Tab Take 1 Tab by mouth daily. zolpidem (AMBIEN) 10 mg Oral Tab Take 1 Tab by mouth nightly as needed for I nsomnia. ACTOS 30 mg Oral Tab Take 30 mg by mouth daily. FLONASE 50 mcg/Actuation Both Nostril SpSn [...] Drop in both eyes 2 times daily. Oxmcxmf-Xaybjgqvh-Kocv Oral Tab Take by mouth 2 times [...] P ain. PHYSICAL EXAM Initial Vitals BP -- Pulse -- Resp -- Temp -- Temp src -- SpO2 -- Physical Exam Nursing note and vitals reviewed. Constitutional: He is oriented. He appears not diaphoretic. He appears distresse d. Frail, obese, walking with difficulty Neck: Normal range of motion. Neck supple. No JVD present. No bruits Cardiovascular: Normal rate, regular rhythm and intact distal pulses. Heart sounds distant Pulmonary/Chest: He is in respiratory distress. He has no wheezes. He has no ral es. He exhibits tenderness. Slight wheezes left chest, left chest wall very ttp Abdominal: Bowel sounds are normal. Obesity limiting Musculoskeletal: He exhibits no edema and no tenderness. Neurological: He is alert and oriented. Skin: Skin is warm and dry. He is not diaphoretic. Abrasion left knee Psychiatric: He has a normal mood and affect. MDM Coding Reviewed: previous chart, nursing note and vitals Reviewed previous: x-ray, ECG and labs Interpretation: x-ray, ECG and labs DIAGNOSTICS LAB: Results for orders placed during the hospital encounter of 03/27/2009 (from the past 24 hour(s)) CBC WITH DIFFERENTIAL Component Value Range WBC 7.36 3.0-10.4 (x10E3) RBC 4.57 4.15-5.75 (x10E6) HEMOGLOBIN 13.3 (*) 13.8-17.4 (g/dL) HEMATOCRIT 37.8 (*) 38.6-49.4 (%) MCV 82.7 79-100 (fL) MCH 29.1 28-34 (pg) MCHC 35.2 33-36 (g/dL) RDW 13.7 12.1-14.1 (%) PLATELETS 317 148-408 (x10E3) MPV 8.5 7.4-10.6 (fL) NEUTROPHILS 72.1 43-73 (%) LYMPHOCYTES 21.3 19-47 (%) MONOCYTES 4.5 3-9 (%) EOSINOPHILS 1.9 0-6 (%) BASOPHILS 0.2 0-1.2 (%) NEUTROPHIL ABSOLUTE 5.31 1.3-7.6 (x10E3) LYMPHOCYTE ABSOLUTE 1.57 0.6-4.9 (x10E3) MONOCYTE ABSOLUTE 0.33 0.1-0.9 (x10E3) EOSINOPHIL ABSOLUTE 0.14 0.0-0.2 (x10E3) BASOPHILS ABSOLUTE 0.02 0-0.1 (x10E3) BRAIN NATRIURETIC PEPTIDE, BNP OR PROBNP Component Value Range BRAIN NATRIURETIC PEPTIDE 62 0-125 (pg/ml) D-DIMER Component Value Range D-DIMER QUANT Less than 100 0-400 (ng/mL) PTT Component Value Range PTT 27 23-31 (Sec) PROTIME-INR Component Value Range PROTIME 11.7 (*) 9.5-11.5 (Sec) INR 1.12 (*) 2.0-3.0 COMPREHENSIVE METABOLIC PANEL Component Value Range GLUCOSE 198 (*) 70-110 (mg/dl) BUN 26.0 (*) 7-20 (mg/dl) CREATININE 0.90 0.8-1.3 (mg/dl) BUN/CREAT RATIO 28.9 (*) 10-20 GFR 92 - (ml/min) SODIUM 132 (*) 135-145 (mmol/L) POTASSIUM 4.4 3.3-4.8 (mmol/L) CHLORIDE 96 (*) 98-107 (mmol/L) CO2 29.7 22-31 (mmol/L) ANION GAP 11 4-20 CALCIUM 9.8 8.5-10.1 (mg/dl) ALBUMIN 4.6 3.4-5.0 (g/dl) TOTAL PROTEIN 7.6 6.4-8.2 (g/dl) GLOBULIN (CALC) 3.0 - ALBUMIN/GLOBULIN RATIO 1.5 - BILIRUBIN TOTAL 0.3 - (mg/dl) ALKALINE PHOSPHATASE 57 50-136 (IU/L) AST 25 10-40 (IU/L) ALT 40 25-70 (IU/L) TROPONIN Component Value Range TROPONIN I 0.06 0-0.4 (ng/ml) RADIOLOGY: XR CHEST PA OR AP (Results Pending) No acute changes EKG: Sinus rhythm, rate 71, non-specific ST changes, unchanged from 02/12/2008 PROCEDURES MEDICAL DECISION MAKING AND PLAN OF CARE Last vitals BP 137/70 | Pulse 67 | Temp(Src) 98.7 F (37.1 C) (Oral) | Resp 13 | Ht 5' 9" (1.753 m) | Wt 97.523 kg | SpO2 99% CLINICAL IMPRESSION Encounter Diagnoses Code Name Primary? 922.1B Contusion, Chest Wall CASE DISCUSSED PATIENT COUNSELING Diagnostics reviewed and questions answered. Diagnosis, treatment options and p brianna of care discussed with understanding verbalized. DISPOSITION, EDUCATION AND MEDICATION RECONCILIATION Medications reconciled. See after visit summary for patient education on discha rged patients. documented in this encounter Plan of Treatment Not on filedocumented as of this encounter Procedures Comments Procedure Name Priority Date/Time Associated Diag nosis ECG REPORT 03/28/2009 12:13 PM CDT EKG 12-LEAD Stat 03/28/2009 10:44 AM CDT TELEMETRY REPORT 03/28/2009 10:38 AM CDT XR CHEST PA OR AP 1 VW Stat 03/27/2009 9:23 AM CDT CBC WITH DIFFERENTIAL Stat 03/27/2009 8:58 AM CDT PTT Stat 03/27/2009 8:58 AM CDT PROTIME-INR Stat 03/27/2009 8:58 AM CDT D-DIMER Stat 03/27/2009 8:58 AM CDT TROPONIN Stat 03/27/2009 8:58 AM CDT BRAIN NATRIURETIC Stat 03/27/2009 PEPTIDE, BNP OR PROBNP 8:58 AM CDT COMPREHENSIVE METABOLIC Stat 03/27/2009 PANEL 8:58 AM CDT OXYGEN, NASAL CANNULA Stat 03/27/2009 8:55 AM CDT PULSE OXIMETRY, Stat 03/27/2009 CONTINUOUS 8:55 AM CDT documented in this encounter Results * ECG REPORT (03/28/2009 12:13 PM CDT) Procedure Note David Bernard MD - 03/28/2009 9:47 AM CDT [facility]. [address] [place] [address]. [place], [place] [address] EKG OLIVERIO TINSLEY OU [id number] 03/27/09 at 0859. The rhythm is regular, sinus in origin with a rate of 71 beats per minute. T waves are flattened across the tracing. There is slow R wave progression through V3 across the chest. Compared with previous tracing dated 01-28-09, complexes are similar. Diagnosis: 1) Sinus rhythm, rate 71 beats per minute. 2) Low voltage limb leads. 3) Nonspecific T wave flattening. 4) Slow R wave progression, septal chest leads, old anteroseptal wall myocardial infarct cannot be completely ruled out. Dictated by Bronwyn Dictated by: EKG DD 03/28/09 TD 03/28/09/LRG EKG REPORT # [id number] ORDER # * EKG 12-LEAD (03/28/2009 10:44 AM CDT) Narrative Performed At This result has an attachment that is n ot available. Procedure Note 03/28/2009 10:39 AM CDT * TELEMETRY REPORT (03/28/2009 10:38 AM CDT) Narrative Performed At This result has an attachment that is n ot available. Procedure Note 03/28/2009 10:36 AM CDT * XR CHEST PA OR AP (03/27/2009 9:23 AM CDT) Specimen Impressions Performed At : No acute cardiopulmonary disease. Narrative Performed At PORTABLE CHEST X-RAY: Done 03/27, compared to prior exam of 31/07. HISTORY: CHEST PAIN. The patient is status post median evangelista otomy. The cardiac silhouette and pulmonary vascularity are normal. No in filtrates or masses are seen. No pneumothorax. Procedure Note Oliverio Muhammad MD - 03/27/2009 3:57 PM CDT PORTABLE CHEST X-RAY: Done 03/27, compared to prior exam of 01/28/09. HISTORY: CHEST PAIN. The patient is status post median sternotomy. The cardiac silhouette and pulmonary vascularity are normal. No infiltrates or masses are seen. No pneumothorax. IMPRESSION: No acute cardiopulmonary disease. * TROPONIN (03/27/2009 8:58 AM CDT) TROPONIN I 0.06Comment: [facility] 0 - 0.4 ng/ml [facility] ACCT#[id number], ,,,, [facility] Specimen Blood specimen (specimen) Performing Organization Address City/State/Zipcode Ph one Number INTERFACE SYSTEM [facility] [id number] [place] S [address] [facility] [address] [facility] * COMPREHENSIVE METABOLIC PANEL (03/27/2009 8:58 AM CDT) GLUCOSE 198 (H) 70 - 110 mg/dl [facility] BUN 26.0 (H) 7 - 20 mg/dl [facility] CREATININE 0.90 0.8 - 1.3 mg/dl [facility] BUN/CREAT RATIO 28.9 (H) 10 - 20 [facility] GFR 92 >90 ml/min [facility] SODIUM 132 (L) 135 - 145 mmol/L [facility] POTASSIUM 4.4 3.3 - 4.8 mmol/L [facility] CHLORIDE 96 (L) 98 - 107 mmol/L [facility] CO2 29.7 22 - 31 mmol/L [facility] ANION GAP 11 4 - 20 [facility] CALCIUM 9.8 8.5 - 10.1 mg/dl [facility] ALBUMIN 4.6 3.4 - 5.0 g/dl [facility] TOTAL PROTEIN 7.6 6.4 - 8.2 g/dl [facility] GLOBULIN (CALC) 3.0 [facility] ALBUMIN/GLOBULI 1.5 [facility] BILIRUBIN TOTAL 0.3 <1.1 mg/dl [facility] ALKALINE 57 50 - 136 IU/L [facility] AST 25 10 - 40 IU/L [facility] ALT 40Comment: [facility] 25 - 70 IU/L [facility] ACCT#[id number], ,,,, [facility] Specimen Blood specimen (specimen) Performing Organization Address [facility] Ph one Number INTERFACE SYSTEM [facility] CLIA# [id number] [place] [id number] [facility] [address] [place] [address] * PROTIME-INR (03/27/2009 8:58 AM CDT) [facility] PROTIME 11.7 (H) 9.5 - 11.5 Sec [facility] INR 1.12 (L)Comment: 2.0 - 3.0 [facility] ACCT#[id number], ,,,, [facility] Specimen Blood specimen (specimen) Performing Organization Address [facility] one Number [facility]FACE [facility] [id number] [facility] [place] [address] * PTT (03/27/2009 8:58 AM CDT) [facility] PTT 27Comment: [facility] SOUTHJANICEGAB 23 - 31 Sec [facility] eduFire ACCT#[id number], ,,,, [facility] Specimen Blood specimen (specimen) Performing Organization Address [facility] Ph one Number INTERFACE [facility] IA# [id number] Leon[place]FF[place] [address] [facility] [address] [place] [address] * D-DIMER (03/27/2009 8:58 AM CDT) [facility] D-DIMER QUANT Less than 100 0 - 400 ng/mL [facility] Comment: [facility] 90% of patients testing below [facility] 400 ng/ml have proven negative for Thromboembolic Events. [facility] ACCT#[id number], ,,,, Specimen Blood specimen (specimen) Performing Organization Address [facility] Ph one Number INTERFACE [facility]# [id number] [place] [address] [facility] [address] [place] [address] * BRAIN NATRIURETIC PEPTIDE, BNP OR PROBNP (03/27/2009 8:58 AM CDT) [facility] BRAIN 62Comment: [facility] 0 - 125 pg/ml [facility] NATRIURETIC ACCT#[id number], ,,,, [facility] [place] [facility] Specimen Blood specimen (specimen) Performing Organization Address City/State/[facility] Ph one Number INTERFACE SYSTEM [facility] CLIA# [id number] [place] S [address] [facility] [address] [facility] * CBC WITH DIFFERENTIAL (03/27/2009 8:58 AM CDT) WBC 7.36 3.0 - 10.4 x10E3 [facility] RBC 4.57 4.15 - 5.75 x10E6 [facility] HEMOGLOBIN 13.3 (L) 13.8 - 17.4 g/dL [facility] HEMATOCRIT 37.8 (L) 38.6 - 49.4 % [facility] MCV 82.7 79 - 100 fL [facility] MCH 29.1 28 - 34 pg [facility] MCHC 35.2 33 - 36 g/dL [facility] RDW 13.7 12.1 - 14.1 % [facility] PLATELETS 317 148 - 408 x10E3 [facility] MPV 8.5 7.4 - 10.6 fL [facility] NEUTROPHILS 72.1 43 - 73 % [facility] LYMPHOCYTES 21.3 19 - 47 % [facility] MONOCYTES 4.5 3 - 9 % [facility] EOSINOPHILS 1.9 0 - 6 % [facility] BASOPHILS 0.2 0 - 1.2 % [facility] NEUTROPHIL 5.31 1.3 - 7.6 x10E3 [facility] LYMPHOCYTE 1.57 0.6 - 4.9 x10E3 [facility] MONOCYTE 0.33 0.1 - 0.9 x10E3 [facility] EOSINOPHIL 0.14 0.0 - 0.2 x10E3 [facility] BASOPHILS 0.02Comment: [facility] 0 - 0.1 x10E3 [facility] ABSOLUTE ACCT#[id number], ,,,, [facility] Specimen Blood specimen (specimen) Performing Organization Address City/State/Zipcode Ph one Number INTERFACE SYSTEM [facility] MARTINEZ# [id number] Leon[place] [address] [facility] [address] [facility] documented in this encounter Visit Diagnoses Diagnosis Contusion, chest wall Contusion of chest wall documented in this encounter Administered Medications Action Date Dose Rate Site Medication Order MAR Action 03/27/2009 9:05 AM CDT 324 mg aspirin (AMELIA CHEWABLE) chew tablet 324 Given mg 324 mg, Oral, ONE TIME ONLY, 1 dose, We d 03/27/09 at 0900, Routine 03/27/2009 10:40 AM CDT 2 mg MORphine 2 mg/mL injection 2 mg Given 2 mg, IV, EVERY 5 MINUTES PRN, 5 doses, Starting Wed03/27/09 at 0854, Until Wed03/27/09 at 1250, Pain, Severe, Routine 2 mg Given 03/27/2009 9:51 AM CDT 03/27/2009 9:35 AM CDT 0.4 mg nitroglycerin (NITROSTAT) tablet 0.4 mg Given 0.4 mg, Sublingual, EVERY 5 MINUTES PRN , 3 doses, Starting Wed03/27/09 at 0853, Until Wed03/27/09 at 0935, Chest Pain, Routine 0.4 mg Given 03/27/2009 9:14 AM CDT 0.4 mg Given 03/27/2009 9:06 AM CDT 03/27/2009 9:05 AM CDT 5 mL sodium chloride 0.9 % flush injection 3 Given mL 3 mL, IV, TWO TIMES DAILY, First dose o n Wed03/27/09 at 0900, Until Discontinued , Routine SODIUM CHLORIDE 0.9 % SYRINGE 1 dose, Starting Wed03/27/09 at 0848, Until Wed03/27/09 at 0905, Keller OMNICELL: Cabinet Override, documented in this encounter
--- OUTSIDE RECORDS SUMMARY | 2020-03-24 14:44 | XMS REPORT | Encounter Summary ---
Author Author [facility] Organization [facility] Address Unknown Phone Unavailable Care Team Providers Care Farm Consultant Name Role Phone Shahram Mccallum MD PCP Unavailable Reason for Visit * Reason Comments Medication Refill Encounter Details Care Team Description Date Type Department Self, Aries Montelongo MD [address] [place] [address] Anxiety State 05/03/2009 Refill [facility] Primar y Care [place]elly [address] [place] [address] Social History Date Tobacco Use [...]
--- OUTSIDE RECORDS SUMMARY | 2020-03-24 14:44 | XMS REPORT | Encounter Summary ---
Author Author [facility] Organization [facility] Address Unknown Phone Unavailable Care Team Providers Care Electrotherapist Name Role Phone Shahram Mccallum MD PCP Unavailable Reason for Visit * Reason Comments Medication Refill Encounter Details Care Team Description Date Type Department Jada Fernandez MD NO ADDRESS ON FILE 04/03/2009 Refill [facility] Primar y Care [address] [id number] Social History Date Tobacco Use Types Packs/Day [...]
--- OUTSIDE RECORDS SUMMARY | 2020-03-24 14:44 | XMS REPORT | Encounter Summary ---
Author Author [facility] Organization [facility] Address Unknown Phone Unavailable Care Team Providers Care Night Shift Name Role Phone Shahram Mccallum MD PCP Unavailable Encounter Details Care Team Description Date Type Department Mhcf, Lab Schedule 05/09/2009 Hospital [facility] General Encounter Laboratory Services [address] [phone] Social History Date Tobacco Use [...] 0 mouth daily with lunch. 12/29/2007 10/18/2009 Zkoyytf-Chnmjynog-Wbhn Take by mouth 0 Oral Tab 2 [...] Date/Time Associated Diag nosis HEMOGLOBIN A1C Routine 05/09/2009 DM w/o Complica tion Type 7:27 AM CDT I LIPID PANEL Routine 05/09/2009 Hyperlipidemia 7:27 AM CDT COMPREHENSIVE METABOLIC Routine 05/09/2009 Hyperl ipidemia PANEL 7:27 AM CDT documented in this encounter Results * LIPID PANEL (05/09/2009 7:27 AM CDT) [facility] CHOLESTEROL 241 (H) 140 - 200 mg/dl [facility] TRIGLYCERIDE 326 (H) 0 - 199 mg/dl [facility] Comment: [facility] TRIGLYCERIDES NORMAL LESS THAN 150 mg/dl BORDERLINE HIGH 150 - 199 mg/dl HIGH 200 - 499 mg/dl VERY HIGH GREATER THAN OR = 500 mg/dl HDL 48 27 - 67 mg/dl [facility] LDL 140 (H) <130 mg/dl [facility] CHOLESTEROL, Comment: [place] [facility] RISK CATEGORY LDL GOAL High risk: <100 mg/dl CHD or CHD risk equivalents (optional goal: <70 mg/dl) (10-year risk > 20%) Moderately high risk <130 mg/dl 2+ risk factors (10-year risk 10% to 20%) Moderate risk: <130 mg/dl 2+ risk factors (10-year risk < 10%) Lower risk: <160 mg/dl 0-1 risk factor [facility] [place] ACCT#[id number], ,,,, Specimen Blood specimen (specimen) Performing Organization Address [facility] Ph one Number INTERFACE SYSTEM [facility] [id number] [facility] F[place], S [address] [facility] [address] [place] [address] * HEMOGLOBIN A1C (05/09/2009 7:27 AM CDT) HEMOGLOBIN A1C 6.4 (H) 0 - 6.0 % [facility] GLUCOSE, MEAN 137Comment: [facility] mg/dl [facility] BLOOD ACCT#[id number], ,,,, [facility] [place] [facility] Specimen Blood specimen (specimen) Performing Organization Address [facility] Ph one Number INTERFACE SYSTEM [facility] CLIA# [id number] [place], [place] [address] [facility] [address] [place] [address] * COMPREHENSIVE METABOLIC PANEL (05/09/2009 7:27 AM CDT) GLUCOSE 162 (H) 70 - 110 mg/dl [facility] BUN 27.0 (H) 7 - 20 mg/dl [facility] CREATININE 0.80 0.8 - 1.3 mg/dl [facility] BUN/CREAT RATIO 33.8 (H) 10 - 20 [facility] GFR 105 >90 ml/min [facility] [facility] SODIUM 136 135 - 145 mmol/L [facility] POTASSIUM 4.4 3.3 - 4.8 mmol/L [facility] CHLORIDE 100 98 - 107 mmol/L [facility] CO2 28.6 22 - 31 mmol/L [facility] ANION GAP 12 4 - 20 [facility] CALCIUM 8.9 8.5 - 10.1 mg/dl [facility] ALBUMIN 4.2 3.4 - 5.0 g/dl [facility] TOTAL PROTEIN 7.1 6.4 - 8.2 g/dl [facility] GLOBULIN (CALC) 2.9 [facility] ALBUMIN/GLOBULI 1.4 [facility] BILIRUBIN TOTAL 0.3 <1.1 mg/dl [facility] ALKALINE 55 50 - 136 IU/L [facility] PHOSPHATASE [place] [facility] AST 20 10 - 40 IU/L [facility] ALT 38Comment: [facility] 25 - 70 IU/L [facility] ACCT#[id number], ,,,, [facility] [facility] Specimen Blood specimen (specimen) Performing Organization Address City/State/Zipcode Ph one Number INTERFACE SYSTEM [facility] HOL[place]IA# [id number] [place] [address] [facility] [address] documented in this encounter Visit Diagnoses Diagnosis Hyperlipidemia Other and unspecified hyperlipidemia 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
--- OUTSIDE RECORDS SUMMARY | 2020-03-24 14:44 | XMS REPORT | Encounter Summary ---
Author Author [facility] Organization [facility] Address Unknown Phone Unavailable Care Team Providers Care Manager Grant Name Role Phone Shahram Mccallum MD PCP Unavailable Reason for Visit * Reason Comments Diabetes Encounter Details Care Team Description Date Type Department Shahram Mccallum MD NO ADDRESS ON FILE DM w/o Complication Type I; Chronic Airway Obstruction, not Elsewhere Classified; Hyperlipidemia; Unspecified Essential Hypertension; Cor Athrscl-Uns Vessel 09/13/2009 Office Visit [facility] [address] [place] [phone] Social History Date Tobacco Use Types Packs/Day [...] Reading Time Taken Comments Vital Sign 128/80 09/13/2009 10:34 AM POULTRY DEBEAKER Blood Pressure 72 09/13/2009 10:34 AM POULTRY DEBEAKER Pulse - - Temperature - - Respiratory Rate - - Oxygen Saturation - - Inhaled Oxygen Concentration 100.7 kg (222 lb) 09/13/2009 10:34 AM POULTRY DEBEAKER Weight - - Height 32.78 03/27/2009 10:05 AM CDT Body Mass Index documented in this encounter Progress Notes * Shahram Mccallum MD - 09/13/2009 10:57 AM POULTRY DEBEAKER Subjective: Oliverio Dalton is a 59 y.o. [...] prior to encounter Medication Sig Dispense Refill loratadine (CLARITIN) 10 mg Oral Tab Take 1 Tab by mouth daily. 30 Tab 5 zolpidem (AMBIEN) 10 mg Oral Tab Take 1 Tab by mouth nightly as needed for I nsomnia. 30 Tab 2 phenytoin (PHENYTEK) 200 mg Oral Cap Take [...] 0 min. After supper 30 Cap 5 lorazepam (ATIVAN) 1 mg Oral Tab Take 1 Tab by mouth 2 times daily. 60 Tab 1 isosorbide mononitrate (IMDUR) 60 mg Oral Tb24 [...] Tab by mouth daily. 30 Tab 11 PROZAC 40 mg Oral Cap Take 40 mg by mouth daily. simvastatin (ZOCOR) 80 mg Oral Tab Take 1 Tab by mouth daily at bedtime. 30 Tab 5 esomeprazole (NEXIUM) 40 mg Oral CpDR Take 1 Cap by mouth daily before a delmi l. 30 Cap 11 FLONASE 50 mcg/Actuation Both Nostril SpSn Administer [...] Drop in both eyes 2 times daily. Joeiwtv-Sjjojiift-Otah Oral Tab Take by mouth 2 times [...] as needed for P ain. Component Value Date/Time CHOLESTEROL 234 08/16/09 7:56 AM CHOLESTEROL 241 05/09/09 7:27 AM CHOLESTEROL 216 02/06/09 8:04 AM HDL 54 08/16/09 7:56 AM HDL 48 05/09/09 7:27 AM HDL 49 02/06/09 8:04 AM LDL CALCULATED 0 06/29/08 3:50 AM LDL CALCULATED 0 04/26/06 5:45 AM LDL CHOLESTEROL, DIRECT 134 08/16/09 7:56 AM LDL CHOLESTEROL, DIRECT 140 05/09/09 7:27 AM LDL CHOLESTEROL, DIRECT 145 02/06/09 8:04 AM TRIGLYCERIDE 207 08/16/09 7:56 AM TRIGLYCERIDE 326 05/09/09 7:27 AM TRIGLYCERIDE 233 02/06/09 8:04 AM ALT 38 08/16/09 7:56 AM AST 22 08/16/09 7:56 AM Component Value Date/Time CREATININE 0.95 08/16/09 7:56 AM BUN 21.0 08/16/09 7:56 AM SODIUM 138 08/16/09 7:56 AM POTASSIUM 4.6 08/16/09 7:56 AM CHLORIDE 103 08/16/09 7:56 AM CO2 29.2 08/16/09 7:56 AM GFR 86 08/16/09 7:56 AM Component Value Date/Time ALT 38 08/16/09 7:56 AM AST 22 08/16/09 7:56 AM ALKALINE PHOSPHATASE 59 08/16/09 7:56 AM BILIRUBIN TOTAL 0.3 08/16/09 7:56 AM HPI: Mr. Dalton complains of the following (by systems): Chest Pain symptoms: none and saw Dr Oconnor and reports he can take Viagra but ne eds to stop imdur 3 days before. we will confimr in writing before prescribing. Diabetes Type II complaints: medication compliance: compliant all of the time, diabetic diet compliance: compliant most of the time Hypertension related symtoms/issues: taking medications as instructed, no side effects of medications, no chest pain on exertion, no dyspnea on exertion, no ed lian no lipid med related sxs. Review of Systems: ROS Denies all of the following: Headache Dizziness Chest pain Shortness of breath Bowel changes Bladder changes Pain in muscle or joints Exam/Objective: Normal Exam for Routine Visits: \Blood pressure 128/80, pulse 72, weight 222 lb (100.699 kg). General appearance: chronic ill appearing, active, alert, cooperative, no distre [...] symmetrical non edematous. Assessment and Plan: ASSESSMENT: No diagnosis found. PLAN: No orders of the defined types were placed in this encounter. Will taper and use ativan prn only Appropriate medications prescribed (see detailed AVS). Appropriate patient instructions provided (see detailed AVS). Follow-up as I have indicated. Medications and options explained to include common side effects. Understanding of medications, course, diagnosis, and expectations were expressed by patient/g uardian. TRY DEBEAKER documented in this encounter Plan of Treatment Not on filedocumented as of this encounter Visit Diagnoses Diagnosis Type I (juvenile type) diabetes mellitu s without mention of complication, not stated as uncontrolled Chronic airway obstruction, not elsewhe re classified Hyperlipidemia Other and unspecified hyperlipidemia Unspecified essential hypertension Coronary atherosclerosis of unspecified type of vessel, [place]-apache or graft documented in this encounter
--- OUTSIDE RECORDS SUMMARY | 2020-03-24 14:44 | XMS REPORT | Encounter Summary ---
Author Author [facility] Organization [facility] Address Unknown Phone Unavailable Care Team Providers Care Chopped Strand Operator Name Role Phone Shahram Mccallum MD PCP Unavailable Reason for Visit * Reason Comments Medication Refill Encounter Details Care Team Description Date Type Department Shahram Mccallum MD NO ADDRESS ON FILE 06/26/2009 Refill [facility] Primar y Care [address] [phone] Social History Date Tobacco Use Types Packs/Day [...]
--- OUTSIDE RECORDS SUMMARY | 2020-03-24 14:44 | XMS REPORT | Encounter Summary ---
Author Author [facility] Organization [facility] Address Unknown Phone Unavailable Care Team Providers Care Inclusion Special Education Teacher Name Role Phone Shahram Mccallum MD PCP Unavailable Reason for Visit * Reason Comments Blood in Urine Encounter Details Care Team Description Date Type Department Shahram Mccallum MD NO ADDRESS ON FILE Dysuria (Primary Dx); Prostatitis 10/17/2009 Office Visit [facility] [address] [place] [address] Social History Date Tobacco Use [...] Reading Time Taken Comments Vital Sign 124/78 10/17/2009 10:57 AM ENGRAVER STEEL PLATE Blood Pressure - - Pulse 36.4 C (97.5 F) 10/17/2009 10:57 AM ENGRAVER STEEL PLATE Temperature - - Respiratory Rate - - Oxygen Saturation - - Inhaled Oxygen Concentration 101.2 kg (223 lb) 10/17/2009 10:57 AM ENGRAVER STEEL PLATE Weight - - Height 32.93 03/27/2009 10:05 AM CDT Body Mass Index documented in this encounter Progress Notes * Shahram Mccallum MD - 10/17/2009 12:14 PM ENGRAVER STEEL PLATE Subjective: Oliverio Dalton is a 59 y.o. [...] 2 times daily. ok'd by dr yeh subway conductor 60 Tab 0 loratadine (CLARITIN) 10 mg Oral [...] Drop in both eyes 2 times daily. Lraweat-Xfnsntafu-Bezy Oral Tab Take by mouth 2 times [...] hours as needed for P ain. See UA HPI: Mr. Dalton complains of the following (by systems): UTI associated symptoms: hematuria and 2 weeks of pain L testicle and cord struc tures. hx of TURP last year. Review of Systems: ROS Denies all of the following: Headache Dizziness Chest pain Shortness of breath Bowel changes Bladder changes Pain in muscle or joints Sugars have been higher but does not correlate with urinary changes. Exam/Objective: Normal Exam for Routine Visits: \Blood pressure 124/78, temperature 97.5 F (36 .4 C), weight 223 lb (101.152 kg). General appearance: chronic ill, active, alert, cooperative, no distress, social , normally nourished, and in no acute distress Abdomen: soft, non-tender. Bowel sounds normal. No masses, no organomegaly. Ac tive bowel sounds. Extremities: symmetrical non edematous. : L testicle tender, and cord tender. No masses. Prostate mild tender. Assessment and Plan: ASSESSMENT: Encounter Diagnoses Name Primary? Dysuria Yes Prostatitis PLAN: Orders Placed This Encounter Urinalysis with reflex culture Levofloxacin 500 mg tab if not clearing will need w/u including scrotal ultrasound and / or uro referra l Appropriate medications prescribed (see detailed AVS). Appropriate patient instructions provided (see detailed AVS). Follow-up as I have indicated. Medications and options explained to include common side effects. Understanding of medications, course, diagnosis, and expectations were expressed by patient/g uardian. AVER STEEL PLATE documented in this encounter Plan of Treatment Not on filedocumented as of this encounter Results * URINALYSIS WITH REFLEX CULTURE (10/17/2009 11:10 AM ENGRAVER STEEL PLATE) GLUCOSE UA Trace Negative mg/dl [facility] BILIRUBIN UA Negative Negative [facility] KETONES UA Negative Negative mg/dl [facility] SPECIFIC 1.020 [facility] GRAVITY UA [facility] PH UA 7.5 [facility] PROTEIN UA Negative Negative mg/dl [facility] UROBILINOGEN UA 0.2 0.2 - 1.0 EU/dl [facility] NITRITE UA Negative Negative [facility] BLOOD UA Large (H) Negative [facility] LEUKOCYTE Negative Negative [facility] ESTERASE UA [facility] WBC UA 2-5 0 - 5 /HPF [facility] RBC UA GREATER THAN 50 (H) 0 - 2 /HPF [facility] EPITHELIAL Neg [facility] CELLS, URINE [facility] WBC CLUMPS Neg Negative /LPF [facility] CASTS, URINE Neg 0-4 Hyaline /LPF [facility] CRYSTALS, URINE 1+ [facility] CRYSTALS, URINE Amorph PO4 [facility] BACTERIA UA NEG NEG [facility] COMMENT, URINE Light MucousComment: [facility][id number], ,,,, [facility] Specimen Urine, clean catch Performing Organization Address City/State/Zipcode Ph one Number INTERFACE SYSTEM [facility]# [id number] [place] [address] [facility] [address] [facility] documented in this encounter Visit Diagnoses Diagnosis Dysuria - Primary Prostatitis Prostatitis, unspecified documented in this encounter
--- OUTSIDE RECORDS SUMMARY | 2020-03-24 14:44 | XMS REPORT | Encounter Summary ---
Author Author [facility] Organization [facility] Address Unknown Phone Unavailable Care Team Providers Care Consumer Attorney Name Role Phone Shahram Mccallum MD PCP Unavailable Reason for Visit * Reason Comments Medication Refill Encounter Details Care Team Description Date Type Department Self, Aries Montelongo MD [address] [place] [address] Anxiety State 07/03/[address] [facility] Primar y Care [place] [address] [place] [address] Social History Date Tobacco [...]
--- OUTSIDE RECORDS SUMMARY | 2020-03-24 14:44 | XMS REPORT | Encounter Summary ---
Author Author [facility] Organization [facility] Address Unknown Phone Unavailable Care Team Providers Care Nurse Clinical Name Role Phone Shahram Mccallum MD PCP Unavailable Reason for Visit * Reason Comments Medication Refill Encounter Details Care Team Description Date Type Department Rosalinda Bal Anxiety State 07/09/2009 Refill [facility] Primar y Care [place] [address] [place] [phone] Social History Date Tobacco Use [...] * Telephone Encounter - Rosalinda Bal - 07/09/2009 2:[address] Mccallum may have Ativan 1 mg 1/2 am and 1 pm #60 with one refill called jeremias Kaur documented in this encounter Plan of Treatment Not on filedocumented as of this encounter Visit Diagnoses Diagnosis Anxiety state Anxiety state, unspecified documented in this encounter
--- OUTSIDE RECORDS SUMMARY | 2020-03-24 14:44 | XMS REPORT | Encounter Summary ---
Author Author [facility] Organization [facility] Address Unknown Phone Unavailable Care Team Providers Care Chauffeur [place] Limousine Name Role Phone Shahram Mccallum MD PCP Unavailable Reason for Visit * Reason Comments Medication Refill Encounter Details Care Team Description Date Type Department Shahram Mccallum MD NO ADDRESS ON FILE 07/24/2009 Refill [facility] Primar y Care [address] [phone] Social History Date Tobacco Use Types Packs/Day [...]
--- OUTSIDE RECORDS SUMMARY | 2020-03-24 14:44 | XMS REPORT | Encounter Summary ---
Author Author [facility] Organization [facility] Address Unknown Phone Unavailable Care Team Providers Care Beater Worker Helper Name Role Phone Shahram Mccallum MD PCP Unavailable Reason for Visit * Reason Comments Medication Refill Encounter Details Care Team Description Date Type Department Shahram Mccallum MD NO ADDRESS ON FILE 08/27/2009 Refill [facility] Primar y Care [place] [address] [place] [address] Social History Date Tobacco Use [...] encounter Miscellaneous Notes * Telephone Encounter - Rebeka Rodriguez - 08/27/2009 11:08 AM CDT Pt is requesting refill on timolol 0.5% eye drops. Pt hasn't had these filled si cae 01/18/2007. vo dr mccallum, he would like pt to contact his office, is want ing to know why he hasn't been using these and why he is wanting to restart. [facility] pharm notified. documented in this encounter Plan of Treatment Not on filedocumented as of this encounter Visit Diagnoses Not on filedocumented in this encounter
--- OUTSIDE RECORDS SUMMARY | 2020-03-24 14:44 | XMS REPORT | Encounter Summary ---
Author Author [facility] Organization [facility] Address Unknown Phone Unavailable Care Team Providers Care Spragger Name Role Phone Shahram Mccallum MD PCP Unavailable Reason for Visit * Reason Comments Medication Refill Encounter Details Care Team Description Date Type Department Shahram Mccallum MD NO ADDRESS ON FILE 08/07/2009 Refill [facility] Primar y Care [address] [phone] Social History Date Tobacco Use Types Packs/Day [...]
--- OUTSIDE RECORDS SUMMARY | 2020-03-24 14:44 | XMS REPORT | Encounter Summary ---
Author Author [facility] Organization [facility] Address Unknown Phone Unavailable Care Team Providers Care Cementer Helper Name Role Phone Shahram Mccallum MD PCP Unavailable Reason for Visit * Reason Comments Medication Refill Encounter Details Care Team Description Date Type Department Shahram Mccallum MD NO ADDRESS ON FILE 04/18/2009 Refill [facility] Primar y Care [address] [phone] Social History Date Tobacco Use Types Packs/Day [...]
--- OUTSIDE RECORDS SUMMARY | 2020-03-24 14:44 | XMS REPORT | Encounter Summary ---
Author Author [facility] Organization [facility] Address Unknown Phone Unavailable Care Team Providers Care Bleach Analyst Name Role Phone Shahram Mccallum MD PCP Unavailable Reason for Visit * Reason Comments Medication Refill Encounter Details Care Team Description Date Type Department Shahram Mccallum MD NO ADDRESS ON FILE Anxiety State 09/18/2009 Refill [facility] Primar y Care [address] [phone] Social History Date Tobacco Use Types Packs/Day [...]
[2020-03-24] MEDS ORDERED: cefTRIAXone FOR IV USE 1,000 MG in WATER (STERILE) FOR INJECTION 10 ML IV ONE (14:45)
--- OUTSIDE RECORDS SUMMARY | 2020-03-24 14:45 | XMS REPORT | Encounter Summary ---
Author Author [facility] Organization [facility] Address Unknown Phone Unavailable Care Team Providers Care President & Founder Name Role Phone Shahram Mccallum MD PCP Unavailable Reason for Visit * Reason Comments Results colonoscopy reults Encounter Details Care Team Description Date Type Department Shahram Mccallum MD NO ADDRESS ON FILE DM w/o Complication Type I; Chronic Airway Obstruction, not Elsewhere Classified; Unspecified Asthma; Other Specified Forms of Chronic Ischemic Heart Disease; Tubular Adenoma; Anxiety State 02/05/2009 Office Visit [facility] [address] [place] [phone] Social History Date Tobacco Use Types Packs/Day [...] Reading Time Taken Comments Vital Sign 122/78 02/05/2009 9:17 AM CDT Blood Pressure 64 02/05/2009 9:17 AM CDT Pulse - - Temperature - - Respiratory Rate - - Oxygen Saturation - - Inhaled Oxygen Concentration 98.4 kg (217 lb) 02/05/2009 9:17 AM CDT Weight - - Height 35.02 01/28/2009 9:19 PM CDT Body Mass Index documented in this encounter Progress Notes * Shahram Mccallum MD - 02/05/2009 9:53 AM CDT Subjective: Oliverio Dalton is a [...] Following Unspecified Surgery V67.00 Tubular Adenoma 229.9ED Current outpatient prescriptions prior to encounter Medication Sig Dispense Refill polyethylene glycol 3350 (MIRALAX) 100 % Oral Powd Take 1 SCOOP by mouth conor ly for 30 days. Dissolve in 8 ounces of fluid and drink entire liquid 510 Gram 3 PROZAC 40 mg Oral Cap Take 40 mg by mouth daily. simvastatin (ZOCOR) 80 mg Oral Tab Take 1 Tab by mouth daily at bedtime. 30 Tab 5 bethanechol (URECHOLINE) 25 mg Oral Tab Take 1 Tab by mouth 4 times daily. 120 Tab 5 phenytoin (PHENYTEK) 200 mg Oral Cap Take 1 Cap by mouth 2 times daily. 60 Cap 0 esomeprazole (NEXIUM) 40 mg Oral [...] as needed for I nsomnia. 30 Tab 3 ACTOS 30 mg Oral Tab Take 30 [...] for p ain up to 3 tabs PLAVIX 75 mg Oral Tab Take 75 mg by mouth daily. TRICOR 145 mg Oral Tab Take [...] Drop in both eyes 2 times daily. Cjrddck-Jgjcczbvb-Vsjz Oral Tab Take by mouth 2 times [...] of the following (by systems): Anxiety symptoms: palpitations, sweating, shortness of breath, insomnia and psyc homotor agitation Depression like symptoms: depressed mood, impaired memory and psychomotor agitat ion recent hospital but recovering and colo neg except for sl colitis and tubular ad emona. Review of Systems: ROS Denies all of the following: Headache Dizziness Chest pain Shortness of breath Bowel changes Bladder changes Pain in muscle or joints Exam/Objective: Normal Exam for Routine Visits: \Blood pressure 122/78, pulse 64, weight 217 lb (98.431 kg). General appearance:chronical ill appearing, active, alert, cooperative, no distr ess, social, normally nourished, and in no acute [...] I Chronic Airway Obstruction, not Elsewhere Classified Unspecified Asthma Other Specified Forms of Chronic Ischemic Heart Disease Tubular Adenoma PLAN: No orders of the defined types were placed in this encounter. Has hx of bipolar so will watch as increase prozac and may need another choice. Xanax 0.5 tid prn Appropriate medications prescribed (see detailed AVS). Appropriate [...] airway obstruction, not elsewhe re classified Unspecified asthma(493.90) Unspecified asthma Other specified forms of chronic ischem ic heart disease Tubular adenoma Benign neoplasm of unspecified site Anxiety state Anxiety state, unspecified documented in this encounter
--- OUTSIDE RECORDS SUMMARY | 2020-03-24 14:45 | XMS REPORT | Encounter Summary ---
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; Chronic Airway Obstruction, not Elsewhere Classified; Hyperlipidemia; Unspecified Essential Hypertension; Anxiety State 02/13/2009 Office Visit [facility] [address] [place] [phone] Social History Date Tobacco Use Types Packs/Day [...] Signs Reading Time Taken Comments Vital Sign 112/64 02/13/2009 9:35 AM CDT Blood Pressure 60 02/13/2009 9:35 AM CDT Pulse - - Temperature - - Respiratory Rate - - Oxygen Saturation - - Inhaled Oxygen Concentration 98.9 kg (218 lb) 02/13/2009 9:35 AM CDT Weight - - Height 35.19 01/28/2009 9:19 PM CDT Body Mass Index documented in this encounter Progress Notes * hSahram Mccallum MD - 02/13/2009 10:16 AM CDT Subjective: Oliverio Dalton is a [...] prior to encounter Medication Sig Dispense Refill alprazolam (XANAX) 0.5 mg Oral Tab Take 1 Tab by mouth 3 times daily as need ed for Anxiety. 30 Tab 2 polyethylene glycol 3350 (MIRALAX) 100 % Oral [...] Drop in both eyes 2 times daily. Zxfwnye-Zkoyxtbyq-Jjgk Oral Tab Take by mouth 2 times [...] needed for P ain. Component Value Date/Time HEMOGLOBIN A1C 6.0 02/06/09 8:04 AM HEMOGLOBIN A1C 6.7 10/29/08 7:25 AM HEMOGLOBIN A1C 5.9 02/07/08 10:55 AM LDL CALCULATED 0 06/29/08 3:50 AM LDL CHOLESTEROL, DIRECT 145 02/06/09 8:04 AM CREATININE 1.00 02/06/09 8:04 AM Component Value Date/Time CHOLESTEROL 216 02/06/09 8:04 AM CHOLESTEROL 231 10/29/08 7:25 AM CHOLESTEROL 215 06/29/08 3:50 AM HDL 49 02/06/09 8:04 AM HDL 60 10/29/08 7:25 AM HDL 33 06/29/08 3:50 AM LDL CALCULATED 0 06/29/08 3:50 AM LDL CALCULATED 0 04/26/06 5:45 AM LDL CHOLESTEROL, DIRECT 145 02/06/09 8:04 AM LDL CHOLESTEROL, DIRECT 143 10/29/08 7:25 AM LDL CHOLESTEROL, DIRECT 119 02/12/08 4:55 AM TRIGLYCERIDE 233 02/06/09 8:04 AM TRIGLYCERIDE 191 10/29/08 7:25 AM TRIGLYCERIDE 412 06/29/08 3:50 AM ALT 44 02/06/09 8:04 AM AST 24 02/06/09 8:04 AM Component Value Date/Time CREATININE 1.00 02/06/09 8:04 AM BUN 18.0 02/06/09 8:04 AM SODIUM 135 02/06/09 8:04 AM POTASSIUM 4.1 02/06/09 8:04 AM CHLORIDE 101 02/06/09 8:04 AM CO2 25.7 02/06/09 8:04 AM GFR 81 02/06/09 8:04 AM Component Value Date/Time ALT 44 02/06/09 8:04 AM AST 24 02/06/09 8:04 AM ALKALINE PHOSPHATASE 70 02/06/09 8:04 AM BILIRUBIN TOTAL 0.3 02/06/09 8:04 AM HPI: Mr. Dalton complains of the following (by systems): Anxiety symptoms: psychomotor agitation Chest Pain symptoms: chest wall pain Diabetes Type II complaints: medication compliance: compliant all of the time, diabetic diet compliance: compliant most of the time, home glucose monitoring: fasting values range 125, nonfasting values range 135 Hypertension related symtoms/issues: taking medications as instructed, no side effects of medications, no chest pain on exertion, no dyspnea on exertion, no e sharon Review of Systems: ROS Denies all of the following: Headache Dizziness Chest pain Shortness of breath Bowel changes Bladder changes Pain in muscle or joints Exam/Objective: Normal Exam for Routine Visits: \Blood pressure 112/64, pulse 60, weight 218 lb (98.884 kg). General appearance: chronic ill appearing, active, [...] defined types were placed in this encounter. Appropriate medications prescribed (see detailed AVS). Appropriate patient instructions provided (see detailed AVS). Follow-up as I have indicated. Medications and options explained to include common side effects. Understanding of medications, course, diagnosis, and expectations were expressed by patient/g uardian. documented in this encounter Plan of Treatment Not on filedocumented as of this encounter Results * LIPID PANEL (05/09/2009 7:27 AM CDT) [facility] CHOLESTEROL 241 (H) 140 - 200 mg/dl [facility] TRIGLYCERIDE 326 (H) 0 - 199 mg/dl [place] Comment: [facility] REFERENCE RANGE - [facility] TRIGLYCERIDES NORMAL LESS THAN 150 mg/dl BORDERLINE HIGH 150 - 199 mg/dl HIGH 200 - 499 mg/dl VERY HIGH GREATER THAN OR = 500 mg/dl HDL 48 27 - 67 mg/dl [facility] LDL 140 (H) <130 mg/dl [place] CHOLESTEROL, Comment: TALYA WINN DIRECT [facility] RISK CATEGORY LDL GOAL High risk: <100 mg/dl CHD or CHD risk equivalents (optional goal: <70 mg/dl) (10-year risk > 20%) Moderately high risk <130 mg/dl 2+ risk factors (10-year risk 10% to 20%) Moderate risk: <130 mg/dl 2+ risk factors (10-year risk < 10%) Lower risk: <160 mg/dl 0-1 risk factor [facility] ACCT#[id number], ,,,, Specimen Blood specimen (specimen) Performing Organization Address [facility] one Number INTERFACE SYSTEM [facility] [place]# [id number] [place] [address] * HEMOGLOBIN A1C (05/09/2009 7:27 AM CDT) HEMOGLOBIN A1C 6.4 (H) 0 - 6.0 % [facility] GLUCOSE, MEAN 137Comment: [facility]ANE[facility]AB mg/dl [place] BLOOD ACCT#[id number], ,,,, [facility]ENTER [facility] Specimen Blood specimen (specimen) Performing Organization Address [facility] Ph one Number INTERFACE SYSTEM [facility] [place]# [id number] [place] S [address] * COMPREHENSIVE METABOLIC PANEL (05/09/2009 7:27 AM CDT) GLUCOSE 162 (H) 70 - 110 mg/dl [facility] BUN 27.0 (H) 7 - 20 mg/dl [facility] CREATININE 0.80 0.8 - 1.3 mg/dl [facility] BUN/CREAT RATIO 33.8 (H) 10 - 20 [facility] GFR 105 >90 ml/min [facility] SODIUM 136 135 - 145 mmol/L [facility] POTASSIUM 4.4 3.3 - 4.8 mmol/L [facility] CHLORIDE 100 98 - 107 mmol/L [facility] CO2 28.6 22 - 31 mmol/L [facility] ANION GAP 12 4 - 20 [facility] CALCIUM 8.9 8.5 - 10.1 mg/dl [facility] ALBUMIN 4.2 3.4 - 5.0 g/dl [facility] TOTAL PROTEIN 7.1 6.4 - 8.2 g/dl [facility] GLOBULIN (CALC) 2.9 [facility] ALBUMIN/GLOBULI 1.4 [facility] BILIRUBIN TOTAL 0.3 <1.1 mg/dl [facility] ALKALINE 55 50 - 136 IU/L [place] PHOSPHATASE [place] [facility] AST 20 10 - 40 IU/L [facility] ALT 38Comment: [facility] SANCHEZ 25 - 70 IU/L [facility] ACCT#[id number], ,,,, [facility]ENTER [place] [facility] Specimen Blood specimen (specimen) Performing Organization Address City/State/Zipcode Ph one Number INTERFACE SYSTEM [facility] [place] MARTINE[place]# [id number] [place] S [address] [facility] [address] [facility] documented in this encounter Visit Diagnoses Diagnosis Type I (juvenile type) diabetes mellitu s without mention of complication, not stated as uncontrolled Chronic airway obstruction, not elsewhe re classified Hyperlipidemia Other and unspecified hyperlipidemia Unspecified essential hypertension Anxiety state Anxiety state, unspecified documented in this encounter
--- OUTSIDE RECORDS SUMMARY | 2020-03-24 14:45 | XMS REPORT | Encounter Summary ---
Author Author [facility] Organization [facility] Address Unknown Phone Unavailable Care Team Providers Care Knockout Worker Name Role Phone Shahram Mccallum MD PCP Unavailable Reason for Visit * Reason Comments Medication Refill Encounter Details Care Team Description Date Type Department Shahram Mccallum MD NO ADDRESS ON FILE 02/13/2009 Refill [facility] Primar y Care [address] [phone] Social History Date Tobacco Use Types Packs/Day [...]
--- OUTSIDE RECORDS SUMMARY | 2020-03-24 14:45 | XMS REPORT | Encounter Summary ---
Author Author [facility] Organization [facility] Address Unknown Phone Unavailable Care Team Providers Care Road Freight Firer Name Role Phone Shahram Mccallum MD PCP Unavailable Reason for Visit * Reason Comments Follow Up fu after colonoscopy Encounter Details Care Team Description Date Type Department Mary Zhou MD NO ADDRESS ON FILE Personal History of Colonic Polyps (Prim rolando Dx) 02/06/2009 Office Visit [address] [phone] Social History Date Tobacco Use [...] Reading Time Taken Comments Vital Sign 112/60 02/06/2009 1:27 PM CDT Blood Pressure 60 02/06/2009 1:27 PM CDT Pulse 36.8 C (98.2 F) 02/06/2009 1:27 PM CDT Temperature - - Respiratory Rate - - Oxygen Saturation - - Inhaled Oxygen Concentration - - Weight - - Height - - Body Mass Index documented in this encounter Progress Notes * Mary Zhou MD - 02/06/2009 2:06 PM CDT Subjective: Patient denies diarrhea. No constipation. No abdominal pain. Current outpatient prescriptions Medication Sig Dispense Refill alprazolam (XANAX) 0.5 [...] Drop in both eyes 2 times daily. Smilqbh-Kctdrxtsf-Obvi Oral Tab Take by mouth 2 times [...] as needed for P ain. Objective: BP 112/60 | Pulse 60 | Temp 98.2 F (36.8 C) General appearance: alert, in no distress Abdomen: Soft, non-tender. Bowel sounds normal. No masses, no organomegaly. Hospital Encounter on 02/06/2009 Component Date Value Range Status PHENYTOIN TOTAL (ug/ml) 02/06/2009 18.5 10-20 Final CHOLESTEROL (mg/dl) 02/06/2009 216* 140-200 Final TRIGLYCERIDE (mg/dl) 02/06/2009 233* 0-199 Final HDL (mg/dl) 02/06/2009 49 27-67 Final LDL CHOLESTEROL, DIRECT (mg/dl) 02/06/2009 145* - Final HEMOGLOBIN A1C (%) 02/06/2009 6.0 0-6.0 Final GLUCOSE, MEAN BLOOD (mg/dl) 02/06/2009 124 - Final GLUCOSE (mg/dl) 02/06/2009 116* 70-110 Final BUN (mg/dl) 02/06/2009 18.0 7-20 Final CREATININE (mg/dl) 02/06/2009 1.00 0.8-1.3 Final BUN/CREAT RATIO 02/06/2009 18.0 10-20 Final GFR (ml/min) 02/06/2009 81 - Final SODIUM (mmol/L) 02/06/2009 135 135-145 Final POTASSIUM (mmol/L) 02/06/2009 4.1 3.3-4.8 Final CHLORIDE (mmol/L) 02/06/2009 101 98-107 Final CO2 (mmol/L) 02/06/2009 25.7 22-31 Final ANION GAP 02/06/2009 12 4-20 Final CALCIUM (mg/dl) 02/06/2009 9.0 8.5-10.1 Final ALBUMIN (g/dl) 02/06/2009 4.2 3.4-5.0 Final TOTAL PROTEIN (g/dl) 02/06/2009 7.3 6.4-8.2 Final GLOBULIN (CALC) 02/06/2009 3.1 - Final ALBUMIN/GLOBULIN RATIO 02/06/2009 1.4 - Final BILIRUBIN TOTAL (mg/dl) 02/06/2009 0.3 - Final ALKALINE PHOSPHATASE (IU/L) 02/06/2009 70 50-136 Final AST (IU/L) 02/06/2009 24 10-40 Final ALT (IU/L) 02/06/2009 44 25-70 Final WBC (x10E3) 02/06/2009 6.29 3.0-10.4 Final RBC (x10E6) 02/06/2009 4.41 4.15-5.75 Final HEMOGLOBIN (g/dL) 02/06/2009 13.0* 13.8-17.4 Final HEMATOCRIT (%) 02/06/2009 36.5* 38.6-49.4 Final MCV (fL) 02/06/2009 82.8 79-100 Final MCH (pg) 02/06/2009 29.4 28-34 Final MCHC (g/dL) 02/06/2009 35.5 33-36 Final RDW (%) 02/06/2009 14.0 12.1-14.1 Final PLATELETS (x10E3) 02/06/2009 362 148-408 Final MPV (fL) 02/06/2009 7.1* 7.4-10.6 Final NEUTROPHILS (%) 02/06/2009 67.0 43-73 Final LYMPHOCYTES (%) 02/06/2009 24.8 19-47 Final MONOCYTES (%) 02/06/2009 5.7 3-9 Final EOSINOPHILS (%) 02/06/2009 2.2 0-6 Final BASOPHILS (%) 02/06/2009 0.3 0-1.2 Final NEUTROPHIL ABSOLUTE (x10E3) 02/06/2009 4.21 1.3-7.6 Final LYMPHOCYTE ABSOLUTE (x10E3) 02/06/2009 1.56 0.6-4.9 Final MONOCYTE ABSOLUTE (x10E3) 02/06/2009 0.36 0.1-0.9 Final EOSINOPHIL ABSOLUTE (x10E3) 02/06/2009 0.14 0.0-0.2 Final BASOPHILS ABSOLUTE (x10E3) 02/06/2009 0.02 0-0.1 Final Pathology FINAL DIAGNOSIS A) Biopsy of appendiceal orifice: Benign colonic mucosa with mild active colitis . B) Biopsy, ileocecal valve: Benign colonic mucosa. C) Biopsy polyp at 30 cm: Tubular adenoma. Assessment: Status post colonoscopy with finding of single benign polyp. Mild colitis likel y secondary to bowel prep. Plan: Add Benefiber or FiberSure to regimen. Decrease stool softener and laxative to half prescribed. Repeat colonoscopy in 5 years if asymptomatic. documented in this encounter Plan of Treatment Not on filedocumented as of this encounter Visit Diagnoses Diagnosis Personal history of colonic polyps - Pr imary documented in this encounter"
--- OUTSIDE RECORDS SUMMARY | 2020-03-24 14:45 | XMS REPORT | Encounter Summary ---
Author Author [facility] Organization [facility] Address Unknown Phone Unavailable Care Team Providers Care Livestock Brands Inspector Name Role Phone Shahram Mccallum MD PCP Unavailable Encounter Details Care Team Description Date Type Department Shahram Mccallum MD NO ADDRESS ON FILE [facility], Lab Schedule 02/06/2009 Hospital [facility] General Encounter Laboratory Services [address] [phone] Social History Date Tobacco Use [...] in both eyes 2 times daily. 02/13/2009 02/04/2010 clopidogrel (PLAVIX) 75 Take 1 Tab by 30 Tab 11 mg Oral Tab mouth daily. 02/05/2009 02/13/2009 alprazolam (XANAX) 0.5 mg Take 1 Tab by 30 Tab 2 Oral TabIndications: mouth 3 times Anxiety state daily as needed for Anxiety. 02/02/2009 03/04/2009 polyethylene glycol 3350 Take 1 SCOOP 510 Gram 3 (MIRALAX) 100 % Oral Powd by mouth daily for 30 days. Dissolve in 8 ounces of fluid and drink entire liquid 10/30/2009 PROZAC 40 mg Oral Cap Take 40 mg by 0 mouth daily. 01/23/2009 08/04/2011 simvastatin (ZOCOR) 80 mg Take 1 Tab by 30 Tab 5 Oral Tab mouth daily at bedtime. 01/23/2009 07/31/2009 bethanechol (URECHOLINE) Take 1 Tab by 120 Tab 5 25 mg Oral Tab mouth 4 times daily. 01/09/2009 02/13/2009 phenytoin (PHENYTEK) 200 Take 1 Cap by 60 Cap 0 mg Oral Cap mouth 2 times daily. 01/07/2009 12/11/2009 esomeprazole (NEXIUM) 40 [...] 0 mg Oral Tab mouth daily. 12/29/2007 02/13/2009 PLAVIX 75 mg Oral Tab Take 75 mg by 0 mouth daily. 12/29/2007 08/04/2011 TRICOR 145 mg Oral Tab Take 145 mg 0 by mouth daily with supper. 12/29/2007 07/12/2012 ZETIA 10 mg Oral Tab Take 10 mg by 0 mouth daily at bedtime. 09/10/2010 04/26/2018 MULTIVITAMIN PO Take 1 Tab by 0 mouth daily with lunch. 12/29/2007 10/18/2009 Lvntwha-Jvzgobphf-Ttpk Take by mouth 0 Oral Tab 2 [...] Associated Diag nosis CBC WITH DIFFERENTIAL Routine 02/06/2009 Anemia 8:04 AM CDT HEMOGLOBIN A1C Routine 02/06/2009 DM w/o Complica tion Type 8:04 AM CDT I PHENYTOIN LEVEL, TOTAL Routine 02/06/2009 Other C onvulsions 8:04 AM CDT LIPID PANEL Routine 02/06/2009 Hyperlipidemia 8:04 AM CDT COMPREHENSIVE METABOLIC Routine 02/06/2009 Hyperl ipidemia PANEL 8:04 AM CDT documented in this encounter Results * CBC WITH DIFFERENTIAL (02/06/2009 8:04 AM CDT) WBC 6.29 3.0 - 10.4 x10E3 [facility] RBC 4.41 4.15 - 5.75 x10E6 [facility] HEMOGLOBIN 13.0 (L) 13.8 - 17.4 g/dL [facility] HEMATOCRIT 36.5 (L) 38.6 - 49.4 % [facility] MCV 82.8 79 - 100 fL [facility] MCH 29.4 28 - 34 pg [facility] MCHC 35.5 33 - 36 g/dL [facility] RDW 14.0 12.1 - 14.1 % [facility] PLATELETS 362 148 - 408 x10E3 [facility] MPV 7.1 (L) 7.4 - 10.6 fL [facility] NEUTROPHILS 67.0 43 - 73 % [facility] LYMPHOCYTES 24.8 19 - 47 % [facility] MONOCYTES 5.7 3 - 9 % [facility] EOSINOPHILS 2.2 0 - 6 % [facility] BASOPHILS 0.3 0 - 1.2 % [facility] NEUTROPHIL 4.21 1.3 - 7.6 x10E3 [facility] LYMPHOCYTE 1.56 0.6 - 4.9 x10E3 [facility] MONOCYTE 0.36 0.1 - 0.9 x10E3 [facility] EOSINOPHIL 0.14 0.0 - 0.2 x10E3 [facility] BASOPHILS 0.02Comment: [facility],[place] 0 - 0.1 x10E3 [facility] ACCT#[id number], ,,,, [facility] Specimen Blood specimen (specimen) Performing Organization Address City/State/Zipcode Ph one Number INTERFACE SYSTEM [facility] [place]# [id number] [place] JEFF[place] S [address] [facility] [address] [facility] * COMPREHENSIVE METABOLIC PANEL (02/06/2009 8:04 AM CDT) GLUCOSE 116 (H) 70 - 110 mg/dl [facility] BUN 18.0 7 - 20 mg/dl [facility] CREATININE 1.00 0.8 - 1.3 mg/dl [facility] BUN/CREAT RATIO 18.0 10 - 20 [facility] GFR 81 >90 ml/min [facility] SODIUM 135 135 - 145 mmol/L [facility] POTASSIUM 4.1 3.3 - 4.8 mmol/L [facility] CHLORIDE 101 98 - 107 mmol/L [facility] CO2 25.7 22 - 31 mmol/L [facility] ANION GAP 12 4 - 20 [facility] CALCIUM 9.0 8.5 - 10.1 mg/dl [facility] ALBUMIN 4.2 3.4 - 5.0 g/dl [facility] TOTAL PROTEIN 7.3 6.4 - 8.2 g/dl [facility] GLOBULIN (CALC) 3.1 [facility] ALBUMIN/GLOBULI 1.4 [facility] N RATIO [facility] BILIRUBIN TOTAL 0.3 <1.1 mg/dl [facility] ALKALINE 70 50 - 136 IU/L [facility] PHOSPHATASE [facility] AST 24 10 - 40 IU/L [facility] ALT 44Comment: [place] 25 - 70 IU/L M [facility] ACCT#[id number], ,,,, [facility] Specimen Blood specimen (specimen) Performing Organization Address [facility] Ph one Number INTERFACE SYSTEM [facility] CLIA# [id number] [place] S [address] [facility] [address] [facility] * HEMOGLOBIN A1C (02/06/2009 8:04 AM CDT) [facility] HEMOGLOBIN A1C 6.0 0 - 6.0 % [facility] GLUCOSE, MEAN 124Comment: [facility],[place] mg/dl [facility] BLOOD ACCT#[id number], ,,,, [facility] [place] [facility] Specimen Blood specimen (specimen) Performing Organization Address [facility] one Number INTERFACE [facility] CLIA# [id number] [facility] FAYE, Leonides S [address] [facility] [address] [place] [address] * LIPID PANEL (02/06/2009 8:04 AM CDT) [facility] CHOLESTEROL 216 (H) 140 - 200 mg/dl [facility] TRIGLYCERIDE 233 (H) 0 - 199 mg/dl [facility] Comment: [place] REFERENCE RANGE - [facility] TRIGLYCERIDES NORMAL LESS THAN 150 mg/dl BORDERLINE HIGH 150 - 199 mg/dl HIGH 200 - 499 mg/dl VERY HIGH GREATER THAN OR = 500 mg/dl HDL 49 27 - 67 mg/dl [facility] LDL 145 (H) <130 mg/dl [facility] CHOLESTEROL, Comment: TALYA IRENE [facility] RISK CATEGORY LDL GOAL High risk: <100 mg/dl CHD or CHD risk equivalents (optional goal: <70 mg/dl) (10-year risk > 20%) Moderately high risk <130 mg/dl 2+ risk factors (10-year risk 10% to 20%) Moderate risk: <130 mg/dl 2+ risk factors (10-year risk < 10%) Lower risk: <160 mg/dl 0-1 risk factor [facility] ACCT#[id number], ,,,, Specimen Blood specimen (specimen) Performing Organization Address City/State/Zipcode Ph one Number INTERFACE SYSTEM [facility] MARTINEZ# [id number] Leonides JEFFERSON [address] [facility] DSOUZA [address] [place] [address] * PHENYTOIN LEVEL, TOTAL (02/06/2009 8:04 AM CDT) PHENYTOIN TOTAL 18.5Comment: [facility] 10 - 20 ug/ml [facility] ACCT#[id number], ,,,, [facility] Specimen Blood specimen (specimen) Performing Organization Address City/State/Zipcode Ph one Number INTERFACE SYSTEM [facility] MARTINEZ# [id number] [place] JEFF[place] [address] [facility] [address] [facility] documented in this encounter Visit Diagnoses Diagnosis Other convulsions Hyperlipidemia Other and unspecified hyperlipidemia Type I (juvenile type) diabetes mellitu s without mention of complication, not stated as uncontrolled Anemia Anemia, unspecified documented in this encounter
--- OUTSIDE RECORDS SUMMARY | 2020-03-24 14:45 | XMS REPORT | Encounter Summary ---
Author Author [facility] Organization [facility] Address Unknown Phone Unavailable Care Team Providers Care Patient Clerical Assistant Name Role Phone Shahram Mccallum MD PCP Unavailable Reason for Visit * Reason Comments Chest Pain onset 1 hour CONCRETE CARPENTER took Nitro SL X 2 [employer]PENTER with out relief/ diaphoretic Pt was watching TV when chest pain started. Shortness of Breath Nausea * Auth/Cert Referred By Contact Referred To Contact Status Reason Specialty Diagnoses / Procedures [facility] [address] [place] [address] Closed Inpatient Encounter Details Care Team Description Date Type Department Mary Zhou MD NO ADDRESS ON FILE COLONOSCOPY 02/01/2009 Surgery [facility] Operating Room [address] [place] [address] Social History Date Tobacco Use [...] Signs Reading Time Taken Comments Vital Sign 118/71 02/01/2009 10:59 AM CDT Blood Pressure 85 02/01/2009 10:59 AM CDT Pulse 36.7 C (98.1 F) 02/01/2009 10:59 AM CDT Temperature 18 02/01/2009 10:59 AM CDT Respiratory Rate 97% 02/01/2009 10:59 AM CDT Oxygen Saturation - - Inhaled Oxygen Concentration 100 kg (220 lb 8 oz) 02/01/2009 4:44 AM CDT Weight 167.6 cm (5' 6") 01/28/2009 9:19 PM CDT Height 35.59 01/28/2009 9:19 PM CDT Body Mass Index documented in this encounter Discharge Summaries * Junior Beal MD - 02/01/2009 9:26 AM CDT [facility] [address] [place] [address]. [place], [place] [address] DISCHARGE SUMMARY Patient: OLIVERIO TINSLEY Location: [facility] Room#: MA161-9 Unit#: [id number] Attending Physician: Unknown Admitted: 01/28/09 Discharged: For the acute H P please see the dictated History and Physical from Dr. Mccallum which is back on the . HOSPITAL COURSE: The patient was admitted as presumptive rule out. He ruled out for SC with serial EKGs and enzymes. However, he was felt to have possible pain due to pancreatitis. Pancreatitis was treated accordingly. The patient's pain i mproved. However, as part of the work up, a CT scan was done. It showed some que stionable cecal thickening. I actually did this patient's last colonoscopy a yea r ago and he had a very poor prep so there was very poor visualization of the ce cum. Dr. Colon is planning on re-scoping him this morning. The tentative plan at this time is that as long as his colonoscopy has no revealing features that he w ill go home today with good pain, no recurrent chest pain, pressure, tightness a nd fairly normal p.o. intake, at least as documented in the chart. Last labs before going home which includes blood work from this morning; white count 5.5, H H 13 and 36, platelets 277, BUN/creatinine 11 and 0.8 and his other enzymes were all normal. Lipase was 215 two days ago but not recently checked. Again, tentative going home pending the scope and no obvious findings there. FINAL DIAGNOSIS: Pancreatitis. Chest pain. Again, ruled out for SC. Known histo ry of underlying coronary artery disease, hypertension as well as previous diabe mann and seizure disorder. DISCHARGE INSTRUCTIONS DISPOSITION: Tentatively Enzo will go home post colon oscopy. He will follow up with Dr. Mccallum in five days. Diet, cardiac. Activity as tolerated. He will obviously also continue to follow a 2000 ADA diet as well. Tentatively at this time as well, his home medications have not made any signi ficant changes so Zocor 20 daily, Urecholine 25 q.i.d., Phenytek 200 b.i.d., Nex ium 40 daily, Imdur 60 b.i.d., Daypro 600 daily, Actos 30 daily, Flonase two spr ays in each nostril daily, Lantus insulin 20 units nightly, baby aspirin a day, Flomax 0.4 daily, flaxseed oil 1 gm t.i.d., Claritin 10 daily, Slow-mag 64 t.i.d ., prn NitroQuick, Plavix 75 daily, Tricor 145 daily, Zetia 10 daily, multivitam in daily, Aerobid two puffs t.i.d., albuterol two puffs q6h prn. He has a Combiv ent that he can use as a back up if he does not use the albuterol and then calci um, zinc, magnesium tablets two times daily, Dupage nasal spray, Accu-Cheks, Topr ol XL 25 daily, Prozac 40 daily, Ambien nightly as needed for sleep, Altace 10 d aily, prn Tylenol and Betimol eye drops one drop in each eye b.i.d. Again, it lo oks like the Prozac dose was titrated from 20 to 40 so I have continued that at home. Again, should there be any concern on the colonoscopy or any other obvious problems related to that then we can always hold his discharge if need be. Dictated by: Junior Beal M.D. DD 02/01/09 TD 02/01/09 0926/HGD DISCHARGE SUMMARY # [id number] * Mary Zhou MD - 02/01/2009 9:16 AM CDT Physician Discharge Summary Patient: Oliverio Tinsley / 58 y.o. / male : 1950 Admit date: 01/28/2009 Indication for Admission: acute pancreatitis and chest pain. Admitting Diagnoses: No admission diagnoses for hospital encounter. Attending Physician: Shahram Mccallum MD Consults: general surgery. Problem List: Patient Active Problem List Diagnoses [...] 285.9AA Follow-Up Examination, Following Unspecified Surgery V67.00 Treatments: IV hydration, analgesia: Morphine and procedures: colonoscopy. Significant Diagnostic Studies: radiology: CT scan: prominence at cecum. Hospital Course: Improved with bowel rest and fluid hydration. Due to the findi ng of prominence at cecum, colonoscopy was performed. No gross neoplasm was fou nd at cecum. Biopsies done and are pending at time of discharge. Discharge date: 02/01/2009 Discharge Exam: BP 149/89 | Pulse 95 | Temp(Src) 97.9 F (36.6 C) (Tympanic) | Resp 20 | Ht 5 ' 6" (1.676 m) | Wt 220 lb 8 oz (100.018 kg) | SpO2 96% General appearance: in no distress Abdomen: distended, soft. Non-tender. . Discharge Condition: stable. Discharge Diagnoses: acute pancreatitis, chest pain, rare sigmoid diverticulosis , small internal hemorrhoids Disposition: home. MEDICATIONS Prior to admission: Prescriptions prior to admission Medication Sig Dispense Refill FLUOXETINE 20 mg Oral Tab Take 20 mg by mouth daily. BETIMOL 0.5 % OP Drop Administer 1 Drop in both eyes 2 times daily. simvastatin (ZOCOR) 80 mg Oral [...] Tab by mouth daily. 30 Tab 5 ACTOS 30 mg Oral Tab Take 30 [...] Or every 4 hours as n eeded Sdlayha-Dgobndbve-Ebri Oral Tab Take by mouth 2 times daily. DEEP SEA NASAL NA Administer 2 Sprays in each nostril 2 times daily. ACCU-CHEK ACTIVE TEST Strp by See Admin Instructions route 2 times daily. In the am & pm prn TOPROL XL PO Take 25 mg by mouth daily. PROZAC 40 mg Oral Cap Take 40 mg by mouth daily. DISCONTD: ZOLPIDEM 10 mg Oral Tab Take 10 mg by mouth nightly as needed for Insomnia. DISCONTD: RAMIPRIL 10 mg Oral Tab Take by mouth. DISCONTD: NEXIUM 40 mg Oral CpDR Take 40 mg by mouth daily. zolpidem (AMBIEN) 10 mg Oral Tab Take 1 Tab by mouth nightly as needed for I nsomnia. 30 Tab 3 BETIMOL 0.5 % OP Drop Administer 1 Drop in both eyes 2 times daily. ALTACE 10 mg Oral Cap Take 10 mg by mouth daily. At noon TYLENOL 325 mg Oral Tab Take 1-2 Tabs by mouth every 4 hours as needed for P ain. DISCONTD: oxaprozin (DAYPRO) 600 mg Oral Tab Take 600 mg by mouth daily. Discharge medications and new prescriptions: START taking these medications polyethylene glycol 3350 (MIRALAX) 100 % Oral Powd Take 1 SCOOP by mouth daily for 30 days. Dissolve in 8 ounces of fluid and drin k entire liquid Qty: 510 Gram Refills: 3 CONTINUE these medications which have NOT CHANGED simvastatin (ZOCOR) 80 mg Oral Tab Take 1 Tab by mouth daily at bedtime. Qty: 30 Tab Refills: 5 bethanechol (URECHOLINE) 25 mg Oral Tab Take 1 Tab by mouth 4 times daily. Qty: 120 Tab Refills: 5 phenytoin (PHENYTEK) 200 mg Oral Cap Take 1 Cap by mouth 2 times daily. Qty: 60 Cap Refills: 0 esomeprazole (NEXIUM) 40 mg Oral CpDR Take 1 Cap by mouth daily before a meal. Qty: 30 Cap Refills: 11 isosorbide mononitrate (IMDUR) 60 mg Oral Tb24 Take 1 Tab by mouth 2 times daily. Qty: 60 Tab Refills: 5 oxaprozin (DAYPRO) 600 mg Oral Tab Take 1 Tab by mouth daily. Qty: 30 Tab Refills: 5 ACTOS 30 mg Oral Tab Take 30 mg by mouth daily. FLONASE 50 mcg/Actuation Both Nostril SpSn Administer 2 Sprays in each nostril daily. insulin glargine (LANTUS) 100 unit/mL subCUT Soln Inject by subcutaneous injection. 20 units at hs. Qty: 10 mL Refills: 5 ASPIRIN EC 81 mg Oral TbEC [...] 64 mg by mouth 3 times daily. NITROQUICK 0.[address] 0.4 mg under tongue. As needed for pain up to 3 tabs PLAVIX 75 mg [...] times daily. Or every 4 hours as needed Olzkuoa-Pzmtozorz-Telz Oral Tab Take by mouth 2 times daily. DEEP SEA NASAL NA Administer 2 Sprays in each nostril 2 times daily. ACCU-CHEK ACTIVE TEST Strp by See Admin Instructions route 2 times daily. In the am & pm prn TOPROL XL PO Take 25 mg by mouth daily. PROZAC 40 mg Oral Cap Take 40 mg by mouth daily. zolpidem (AMBIEN) 10 mg Oral Tab Take 1 Tab by mouth nightly as needed for Insomnia. Qty: 30 Tab Refills: 3 BETIMOL 0.5 % OP Drop Administer 1 Drop in both eyes 2 times daily. ALTACE 10 mg Oral Cap Take 10 mg by mouth daily. At noon TYLENOL 325 mg Oral Tab Take 1-2 Tabs by mouth every 4 hours as needed for Pain. STOP taking these medications FLUOXETINE 20 mg Oral Tab Comments: Reason for Stopping: Patient instructions: Activity: activity as tolerated and no driving for today. Diet: Cardiac Diet and Diabetic Diet. Follow-up with Mary Zhou MD in 5 to 7 day(s). Signed: Mary Zhou MD 02/01/2009, 9:17 AM * Junior Beal MD - 02/01/2009 6:41 AM CDT This office note has been dictated. documented in this encounter Discharge Instructions * Patient Instructions* Johnnie Duque Physician - 02/04/2009 2:32 PM CDT * Additional Instructions* Fara Sommer RN - 02/01/2009 Discharge patient to home Follow up with dr mccallum in 5 days Diet cardiac 2000 ada Activity as tolerated Home health as previously ordered prior to your hospitalization ([facility] notified) 1. Call office, , for any questions. Office hours are 8 am to 5 pm Wednesday to , and 8 am to 12 noon on Wednesday. 2. Follow up with Dr. Zhou in 5 to 7 days. 3. May take MOM 30 ml at bedtime for constipation. 4. Avoid Aspirin or Aspirin-containing products for at least 3 days. 5. May take Tylenol 500 mg to 1000 mg every 6 hours as needed for [...] and reduce the bloated feeling in your abdo men (belly). No driving for 24 hours (because of the anesthesia (medicine) used during the te st). You may shower. Do not sign any important legal documents or operate any machinery for 24 hours (because of the anesthesia used during the test). NUTRITION Drink plenty of fluids. You may resume your normal diet as instructed by your doctor. Begin with a light meal and progress to your normal diet. Heavy or fried foods a re harder to digest and may make you [...] that is severe or gets worse throughout day. [facility] Patient Information [employer]. * Attachments The following attachments cannot be sent through Care Everywhere.* Chest Pain (Angina): After Your Visit documented in this encounter Medications at Time of Discharge Start Date End Date Medication Sig Dispensed Refills 12/29/2007 BETIMOL 0.5 % OP Drop Administer 1 0 Drop in both eyes 2 times daily. 02/13/2009 02/04/2010 clopidogrel (PLAVIX) 75 Take 1 Tab by 30 Tab 11 mg Oral Tab mouth daily. 02/02/2009 03/04/2009 polyethylene glycol 3350 Take 1 [...] 0 mouth daily with lunch. 12/29/2007 10/18/2009 Tnbaece-Vqnfbiust-Xbrk Take by mouth 0 Oral Tab 2 times daily. 02/14/2008 08/30/2012 ACCU-CHEK ACTIVE TEST by See Admin 0 Strp Instructions route 2 times daily. In the am & pm prn 02/14/2008 10/30/2009 TOPROL XL PO Take 25 mg by 0 mouth daily. documented as of this encounter Progress Notes * Fara Sommer RN - 02/01/2009 12:57 PM CDT Patient discharged to home at [facility] on 02/01/2009, per physician's orders. Pt to have home care follow up; [facility] notified. All belongings returned to the patient prior to his dismissal; all questions ans wered. * Fara Sommer RN - 02/01/2009 8:50 AM CDT 0850 - pt returned from scope at this time. Report received from Leila Coffman RN. * Fara Sommer RN - 02/01/2009 8:00 AM CDT 0800 - pt to outpatient for colonoscopy at this time. * Althea Phipps RN - 01/31/2009 4:52 PM CDT Gave pt sensi-care and skin protectant to apply after each bowel movement. * Althea Phipps RN - 01/31/2009 10:40 AM CDT Consent and permit for colonoscopy, possible biopsy,moderate sedation signed at this time. * Mary Zhou MD - 01/31/2009 9:44 AM CDT Admit Date: 01/28/2009 Hospital day: 4 Subjective: Patient no new complaints. Current hospital medications Medication Dose Route Frequency Provider Last Rate Last Dose alprazolam (XANAX) tablet 0.5 mg 0.5 mg Oral TID PRN Shahram Mccallum MD Last Dose: 0.5 mg at 01/31/09 0858 sodium chloride 0.9 % flush injection 3 mL 3 mL IV BID Shahram Mccallum MD Last Dose: 3 mL at 01/31/09 0852 bisacodyl delayed release (DULCOLAX) tablet 10 mg 10 mg Oral ONCE Mary renee MD Last Dose: 10 mg at 01/30/092053 bisacodyl delayed release (DULCOLAX) tablet 20 mg 20 mg Oral ONCE Mary renee MD peg 3350-electrolytes (GOLYTELY) oral solution 1 Each 1 Bottle Oral ONCE Artur Zhou MD metoclopramide (REGLAN) injection 10 mg 10 mg IV q 6 hour Mary Zhou MD Last Dose: 10 mg at 01/31/09 0619 influen Tr-Split 2008 Vac (PF) 45 mcg/0.5 mL injection 45 mcg 0.5 mL IM ONCE Shahram Mccallum MD Last Dose: 45 mcg at 01/30/09 1711 DISCONTD: OTHER MEDICATION CONSULT TO PHARMACY 1 Each See Admin Instructions See Admin Notes Shahram Mccallum MD fluoxetine (PROZAC) capsule 20 mg 20 mg Oral Daily Danii Reynolds MD Last Dose: 20 mg at 01/31/09 0849 sodium chloride 0.9 % flush injection 3 mL 3 mL IV See Admin Notes Danii guerra MD Last Dose: 3 mL at 01/31/09 0619 cetirizine (ZYRTEC) tablet 10 mg 10 mg Oral Daily Danii Reynolds MD Last Dose: 10 mg at 01/31/09 0849 tamsulosin SR 24 hour (FLOMAX) capsule 0.4 mg 0.4 mg Oral PC Daily Danii guerra MD Last Dose: 0.4 mg at 01/30/09 171 phenytoin (DILANTIN) capsule 200 mg 200 mg Oral BID Danii Reynolds MD [place] Dose: 200 mg at 01/31/09 0848 FENtanyl PF (SUBLIMAZE) 50 mcg/mL injection 25 mcg 25 mcg IV q 1 hour PRN Ro demetrice Mccallum MD albuterol-ipratropium (DUONEB) 0.5-2.5 mg/3 mL inhalation solution 3 mL 3 mL Inhalation Resp q 6 hour Shahram Mccallum MD Last Dose: 3 mL at 01/31/09 07 24 fluticasone (FLOVENT) 110 mcg/Actuation inhaler 2 Puff 2 Puff Inhalation Res p q 12 hour Danii Reynolds MD Last Dose: 2 Puff at 01/31/09 0850 pioglitazone (ACTOS) tablet 30 mg 30 mg Oral Daily Shahram Mccallum MD L ast Dose: 30 mg at 01/30/09 1523 DISCONTD: enoxaparin (LOVENOX) injection 40 mg 40 mg subCUT Daily Shahram Mccallum MD SODIUM CHLORIDE 0.9 % SYRINGE albuterol (PROVENTIL,VENTOLIN) 90 mcg/Actuation inhaler 2 Puff 2 Puff Inhala tion Resp q 4 h PRN Danii Reynolds MD ramipril (ALTACE) capsule 10 mg 10 mg Oral Daily Danii Reynolds MD Last D ose: 10 mg at 01/31/09 0849 bethanechol (URECHOLINE) tablet 25 mg 25 mg Oral QID Danii Reynolds MD [place] st Dose: 25 mg at 01/31/09 0850 timolol (TIMOPTIC) 0.5 % ophthalmic solution 1 Drop 1 Drop Both Eyes BID Edy Reynolds MD Last Dose: 1 Drop at 01/31/09 0853 fluticasone (FLONASE) nasal spray 2 [place] 2 [place] Both Nostrils Daily Danii Reynolds MD Last Dose: 2 [place] at 01/31/09 0852 isosorbide mononitrate (IMDUR) tablet 60 mg 60 mg Oral BID Karena Harman Last Dose: 60 mg at 01/31/0949 simvastatin (ZOCOR) tablet 80 mg 80 mg Oral Daily BEDTIME Danii Reynolds MD Last Dose: 80 mg at 01/30/092053 metoprolol succinate (TOPROL-XL) tablet 25 mg 25 mg Oral Daily Danii rivera MD Last Dose: 25 mg at 01/31/0949 fenofibrate nanocrystallized (TRICOR) tablet 145 mg 145 mg Oral Daily SUPPER Danii Reynolds MD Last Dose: 145 mg at 01/30/09 171 ezetimibe (ZETIA) tablet 10 mg 10 mg Oral Daily BEDTIME Danii Reynolds MD Last Dose: 10 mg at 01/30/092053 pantoprazole (PROTONIX) injection 40 mg 40 mg IV Daily Danii Reynolds MD Last Dose: 40 mg at 01/30/092052 ondansetron (ZOFRAN) 4 mg/2 mL injection 4 mg 4 mg IV q 6 hour PRN Danii guerra MD MORPHINE 2 MG/ML SYRINGE insulin glargine (LANTUS) 100 unit/mL injection 20 Units 20 Units subCUT ONC E Danii Reynolds MD DISCONTD: aspirin (ECOTRIN EC) tablet 81 mg 81 mg Oral Daily Danii Reynolds MD Last Dose: 81 mg at 01/30/09 0931 DISCONTD: clopidogrel (PLAVIX) tablet 75 mg 75 mg Oral Daily Danii Reynolds MD Last Dose: 75 mg at 01/29/09 1527 Objective: Patient Vitals in the past 8 hrs: BP Temp Temp src Pulse Resp SpO2 Height Wt - Scale 01/31/09 0730 148/90 mmHg 98.5 F (36.9 C) Tympanic 76 22 97 % - - 01/31/09 0724 - - - 90 22 98 % - - 01/31/09 0403 143/70 mmHg 97.2 F (36.2 C) Tympanic - 18 97 % - 224 lb 3.2 o z (101.696 kg) Intake/Output Summary (Last 24 hours) at 01/31/09943 Last data filed at 01/31/09 0403 Gross per 24 hour Intake 2830 ml Output 2250 ml Net 580 ml BP 148/90 | Pulse 76 | Temp(Src) 98.5 F (36.9 C) (Tympanic) | Resp 22 | Ht 5 ' 6" (1.676 m) | Wt 224 lb 3.2 oz (101.696 kg) | SpO2 97% General appearance: alert, in no distress Abdomen: obese and moderately distended, soft, and non-tender. Hospital Encounter on 01/28/2009 Component Date Value Range Status LIPASE (U/L) 01/28/2009 296* 114-286 Final D-DIMER QUANT (ng/mL) 01/28/2009 Less than 100 0-400 Final BRAIN NATRIURETIC PEPTIDE (pg/ml) 01/28/2009 146* 0-125 Final GLUCOSE (mg/dl) 01/28/2009 147* 70-110 Final BUN (mg/dl) 01/28/2009 21.0* 7-20 Final CREATININE (mg/dl) 01/28/2009 1.20 0.8-1.3 Final BUN/CREAT RATIO 01/28/2009 17.5 10-20 Final GFR (ml/min) 01/28/2009 66 - Final SODIUM (mmol/L) 01/28/2009 136 135-145 Final POTASSIUM (mmol/L) 01/28/2009 4.3 3.3-4.8 Final CHLORIDE (mmol/L) 01/28/2009 101 98-107 Final CO2 (mmol/L) 01/28/2009 28.2 22-31 Final ANION GAP 01/28/2009 11 4-20 Final CALCIUM (mg/dl) 01/28/2009 9.2 8.5-10.1 Final ALBUMIN (g/dl) 01/28/2009 4.4 3.4-5.0 Final TOTAL PROTEIN (g/dl) 01/28/2009 7.4 6.4-8.2 Final GLOBULIN (CALC) 01/28/2009 3.0 - Final ALBUMIN/GLOBULIN RATIO 01/28/2009 1.5 - Final BILIRUBIN TOTAL (mg/dl) 01/28/2009 0.3 - Final ALKALINE PHOSPHATASE (IU/L) 01/28/2009 63 50-136 Final AST (IU/L) 01/28/2009 22 10-40 Final ALT (IU/L) 01/28/2009 37 25-70 Final BASOPHILS (%Manual) 01/28/2009 1 0-2 Final NEUTROPHILS, SEG (%Manual) 01/28/2009 59 30-68 Final LYMPHOCYTES (%Manual) 01/28/2009 31 14-50 Final MONOCYTE (%Manual) 01/28/2009 9 0-11 Final PLATELET EST. 01/28/2009 Normal - Final WBC ESTIMATE 01/28/2009 Normal - Final WBC (x10E3) 01/28/2009 6.89 3.0-10.4 Final RBC (x10E6) 01/28/2009 4.47 4.15-5.75 Final HEMOGLOBIN (g/dL) 01/28/2009 13.5* 13.8-17.4 Final HEMATOCRIT (%) 01/28/2009 36.7* 38.6-49.4 Final MCV (fL) 01/28/2009 82.2 79-100 Final MCH (pg) 01/28/2009 30.1 28-34 Final MCHC (g/dL) 01/28/2009 36.6* 33-36 Final RDW (%) 01/28/2009 14.0 12.1-14.1 Final PLATELETS (x10E3) 01/28/2009 350 148-408 Final MPV (fL) 01/28/2009 6.9* 7.4-10.6 Final NEUTROPHILS (%) 01/28/2009 62.1 43-73 Final LYMPHOCYTES (%) 01/28/2009 29.1 19-47 Final MONOCYTES (%) 01/28/2009 6.0 3-9 Final EOSINOPHILS (%) 01/28/2009 2.6 0-6 Final BASOPHILS (%) 01/28/2009 0.2 0-1.2 Final NEUTROPHIL ABSOLUTE (x10E3) 01/28/2009 4.28 1.3-7.6 Final LYMPHOCYTE ABSOLUTE (x10E3) 01/28/2009 2.01 0.6-4.9 Final MONOCYTE ABSOLUTE (x10E3) 01/28/2009 0.42 0.1-0.9 Final EOSINOPHIL ABSOLUTE (x10E3) 01/28/2009 0.18 0.0-0.2 Final BASOPHILS ABSOLUTE (x10E3) 01/28/2009 0.01 0-0.1 Final MAGNESIUM (mg/dl) 01/28/2009 1.8 1.8-2.4 Final PROTIME (Sec) 01/28/2009 11.3 9.5-11.5 Final INR 01/28/2009 1.08* 2.0-3.0 Final INTERPRETATION 01/29/2009 See below. - Final MYOGLOBIN, PLASMA (ng/ml) 01/28/2009 36 16-97 Final TROPONIN I (ng/ml) 01/28/2009 LESS THAN 0.04 0-0.4 Final MYOGLOBIN, PLASMA (ng/ml) 01/28/2009 35 16-97 Final TROPONIN I (ng/ml) 01/28/2009 LESS THAN 0.04 0-0.4 Final TROPONIN I (ng/ml) 01/29/2009 LESS THAN 0.04 0-0.4 Final TROPONIN I (ng/ml) 01/29/2009 0.04 0-0.4 Final PHENYTOIN TOTAL (ug/ml) 01/28/2009 21.9* 10-20 Final POC GLUCOSE (mg/dl) 01/28/2009 130* 70-110 Final LIPASE (U/L) 01/29/2009 188 114-286 Final WBC (x10E3) 01/29/2009 5.04 3.0-10.4 Final RBC (x10E6) 01/29/2009 4.04* 4.15-5.75 Final HEMOGLOBIN (g/dL) 01/29/2009 12.4* 13.8-17.4 Final HEMATOCRIT (%) 01/29/2009 33.7* 38.6-49.4 Final MCV (fL) 01/29/2009 83.4 79-100 Final MCH (pg) 01/29/2009 30.7 28-34 Final MCHC (g/dL) 01/29/2009 36.7* 33-36 Final RDW (%) 01/29/2009 13.7 12.1-14.1 Final PLATELETS (x10E3) 01/29/2009 268 148-408 Final MPV (fL) 01/29/2009 7.5 7.4-10.6 Final NEUTROPHILS (%) 01/29/2009 57.3 43-73 Final LYMPHOCYTES (%) 01/29/2009 32.2 19-47 Final MONOCYTES (%) 01/29/2009 7.7 3-9 Final EOSINOPHILS (%) 01/29/2009 2.7 0-6 Final BASOPHILS (%) 01/29/2009 0.1 0-1.2 Final NEUTROPHIL ABSOLUTE (x10E3) 01/29/2009 2.88 1.3-7.6 Final LYMPHOCYTE ABSOLUTE (x10E3) 01/29/2009 1.63 0.6-4.9 Final MONOCYTE ABSOLUTE (x10E3) 01/29/2009 0.39 0.1-0.9 Final EOSINOPHIL ABSOLUTE (x10E3) 01/29/2009 0.14 0.0-0.2 Final BASOPHILS ABSOLUTE (x10E3) 01/29/2009 0.01 0-0.1FinalGLUCOSE (mg/dl)01/0798 70-110FinalBUN (mg/dl)01/29/200924.0*7-20FinalCREATININE (mg/dl)0 01/29/20091.10 0.8-1.3FinalBUN/CREAT RATIO 01/29/200921.8*10-20FinalGFR (ml /min)01/29/200973 -FinalSODIUM (mmol/L)01/29/2009140 135-145FinalPOTASSIUM (mmol/L)01/29/20094.1 3.3-4.8FinalCHLORIDE (mmol/L)01/29/2009104 98-107Final CO2 (mmol/L)01/29/200925.6 22-31FinalANION GAP 01/29/200915 4-20FinalCA LCIUM (mg/dl)01/29/20098.4*8.5-10.1FinalALBUMIN (g/dl)01/29/20093.7 3.4-5.0Fi nalTOTAL PROTEIN (g/dl)01/29/20096.5 6.4-8.2FinalGLOBULIN (CALC) 92.8 -FinalALBUMIN/GLOBULIN RATIO 01/29/20091.3 -FinalBILIRUBIN TOTAL (mg/ dl)01/29/20090.4 -FinalALKALINE PHOSPHATASE (IU/L)01/29/200965 50-136Final AST (IU/L)01/29/2009217*10-40FinalALT (IU/L)01/29/2009103*25-70FinalWBC (x 10E3)01/30/20094.14 3.0-10.4FinalRBC (x10E6)01/30/20093.86*4.15-5.75FinalH EMOGLOBIN (g/dL)01/30/200911.7*13.8-17.4FinalHEMATOCRIT (%)01/30/200932.4*38. 6-49.4FinalMCV (fL)01/30/200983.9 79-100FinalMCH (pg)01/30/200930.4 28-34F inalMCHC (g/dL)01/30/200936.2*33-36FinalRDW (%)01/30/200913.7 12.1-14.1Fin alPLATELETS (x10E3)01/30/2009244 148-408FinalMPV (fL)01/30/20098.3 7.4-10. 6FinalNEUTROPHILS (%)01/30/200960.6 43-73FinalLYMPHOCYTES (%)01/30/200929. 4 19-47FinalMONOCYTES (%)01/30/20096.8 3-9FinalEOSINOPHILS (%)01/30/20093. 0 0-6FinalBASOPHILS (%)01/30/20090.1 0-1.2FinalNEUTROPHIL ABSOLUTE (x10E3) 01/30/20092.51 1.3-7.6FinalLYMPHOCYTE ABSOLUTE (x10E3)01/30/20091.22 0.6-4.9F inalMONOCYTE ABSOLUTE (x10E3)01/30/20090.28 0.1-0.9FinalEOSINOPHIL ABSOLUT E (x10E3)01/30/20090.13 0.0-0.2FinalBASOPHILS ABSOLUTE (x10E3)01/30/20090.00 0-0.1FinalGLUCOSE (mg/dl)01/30/2009120*70-110FinalBUN (mg/dl)01/30/200913. 0 7-20FinalCREATININE (mg/dl)01/30/20090.90 0.8-1.3FinalBUN/CREAT RATIO 14.4 10-20FinalGFR (ml/min)01/30/200992 -FinalSODIUM (mmol/L)01/30135 135-145FinalPOTASSIUM (mmol/L)01/30/20093.6 3.3-4.8FinalCHLORIDE (mmol/L)01/30/2009104 98-247OrcrjWZ0 (mmol/L)01/30/200927.2 22-31FinalANIO N GAP 01/30/20097 4-20FinalCALCIUM (mg/dl)01/30/20098.5 8.5-10.1FinalLIPAS E (U/L)01/30/2009215 114-286Final Assessment: No new problems. Needs colonoscopy to evaluate prominence in cecum on CT scan. Plan: Bowel prep today. NPO after midnight. * Shahram Mccallum MD - 01/31/2009 8:22 AM CDT Admit Date: 01/28/2009 Subjective: Patient has complaints of feeling anxious but abd pain is essentially cleared. I s prepping for colo by Dr. Zhou. Objective: Patient Vitals in the past 8 hrs: BP Temp Temp src Pulse Resp SpO2 Height Wt - Scale 01/31/09 0730 148/90 mmHg 98.5 F (36.9 C) Tympanic 76 22 97 % - - 01/31/09 0724 - - - 90 22 98 % - - 01/31/09 0403 143/70 mmHg 97.2 F (36.2 C) Tympanic - 18 97 % - 224 lb 3.2 o z (101.696 kg) Intake/Output Summary (Last 24 hours) at 01/31/09 08 Last data filed at 01/31/09 0403 Gross per 24 hour Intake 2830 ml Output 2250 ml Net 580 ml No results found for this or any previous visit (from the past 24 hour(s)). BP 148/90 | Pulse 76 | Temp(Src) 98.5 F (36.9 C) (Tympanic) | Resp 22 | Ht 5 ' 6" (1.676 m) | Wt 224 lb 3.2 oz (101.696 kg) | SpO2 97% General appearance: alert, in no distress Xrays: reviewed Assessment: Patient Active Hospital Problem List: * No active hospital problems. * Plan: See orders. This man could not do prep at home so will do that here and then plan for home p ost colo if neg study. Dr Fernandez will see in my absence. * Blayne Telles, PHARMACIST - 01/30/2009 1:13 PM CDT Clarification: Patient does not qualify for Pneumococcal vaccine (current). Do not administer. Patient meets risk criteria for Influenza vaccine. Administer 0.5ml IM 1x. Plan to give prior to discharge. (Hold if patient has had 2 consecutive Temperatures greater than 101 F within 24 hours of planned administration). Per vaccine screening protocol / Dr Mccallum / Blayne Telles, PHARMACIST * Keshia Howell RN - 01/30/2009 10:10 AM CDT 1010 - Bladder scan post void, 210 ml's showing in bladder, scan posted on paper chart. Dr Mccallum texted with this information. * Keshia Howell RN - 01/30/2009 8:[address] Zhou notified via phone about consult on patient from Dr Mccallum. * Shahram Mccallum MD - 01/30/2009 8:27 AM CDT Admit Date: 01/28/2009 Subjective: Patient has no complaint of cont pain in chest and ROS otherwise neg for cv, res p, or abd c/o. Objective: Patient Vitals in the past 8 hrs: BP Temp Temp src Pulse Resp SpO2 Height Wt - Scale 01/30/09 0650 - - - 54 - 99 % - - 01/30/09 0644 - - - 56 18 96 % - - 01/30/09 0404 115/56 mmHg 97 F (36.1 C) Tympanic 57 16 98 % - 228 lb 1.6 o z (103.465 kg) Intake/Output Summary (Last 24 hours) at 01/30/09 0827 Last data filed at 01/30/09 0400 Gross per 24 hour Intake 2085 ml Output 2925 ml Net -840 ml Results for orders placed during the hospital encounter of 01/28/2009 (from the past 24 hour(s)) CBC WITH DIFFERENTIAL Component Value Range WBC 4.14 3.0-10.4 (x10E3) RBC 3.86 (*) 4.15-5.75 (x10E6) HEMOGLOBIN 11.7 (*) 13.8-17.4 (g/dL) HEMATOCRIT 32.4 (*) 38.6-49.4 (%) MCV 83.9 79-100 (fL) MCH 30.4 28-34 (pg) MCHC 36.2 (*) 33-36 (g/dL) RDW 13.7 12.1-14.1 (%) PLATELETS 244 148-408 (x10E3) MPV 8.3 7.4-10.6 (fL) NEUTROPHILS 60.6 43-73 (%) LYMPHOCYTES 29.4 19-47 (%) MONOCYTES 6.8 3-9 (%) EOSINOPHILS 3.0 0-6 (%) BASOPHILS 0.1 0-1.2 (%) NEUTROPHIL ABSOLUTE 2.51 1.3-7.6 (x10E3) LYMPHOCYTE ABSOLUTE 1.22 0.6-4.9 (x10E3) MONOCYTE ABSOLUTE 0.28 0.1-0.9 (x10E3) EOSINOPHIL ABSOLUTE 0.13 0.0-0.2 (x10E3) BASOPHILS ABSOLUTE 0.00 0-0.1 (x10E3) BASIC METABOLIC PANEL Component Value Range GLUCOSE 120 (*) 70-110 (mg/dl) BUN 13.0 7-20 (mg/dl) CREATININE 0.90 0.8-1.3 (mg/dl) BUN/CREAT RATIO 14.4 10-20 GFR 92 - (ml/min) SODIUM 135 135-145 (mmol/L) POTASSIUM 3.6 3.3-4.8 (mmol/L) CHLORIDE 104 98-107 (mmol/L) CO2 27.2 22-31 (mmol/L) ANION GAP 7 4-20 CALCIUM 8.5 8.5-10.1 (mg/dl) LIPASE Component Value Range LIPASE 215 114-286 (U/L) BP 115/56 | Pulse 54 | Temp(Src) 97 F (36.1 C) (Tympanic) | Resp 18 | Ht 5' 6" (1.676 m) | Wt 228 lb 1.6 oz (103.465 kg) | SpO2 99% General appearance: alert, in no distress Lungs: clear to auscultation bilaterally, normal respiratory effort Abdomen: Soft, non-tender. Bowel sounds normal. No masses, no organomegaly. Ct abd has abnl findings lower colon Xrays: reviewed Assessment: Patient Active Hospital Problem List: * No active hospital problems. * Plan: See orders. Will advance diet and consult surg. * Keshia Howell RN - 01/29/2009 4:[address] Mccallum with CT Results * Keshia Howell V. RN - 01/29/2009 11:19 AM CDT Pt to radiology via wheelchair, campus monitor on. 02 per order. Pt accompani ed by radiology staff. 1150 - Pt back from radiology. * Blayne Telles, PHARMACIST - 01/29/2009 7:58 AM CDT While in hospital: Change Aerobid to Flovent 110mcg 2 puffs inhaled into lungs BID. Change Claritin to Zyrtec 10mg po daily. Per P&T autosub / Dr Reynolds / Blayne Telles, PHARMACIST documented in this encounter H&P Notes * Shahram Mccallum MD - 01/29/2009 9:57 AM CDT [facility], [place] [address] HISTORY AND PHYSICAL Patient: OLIVERIO TINSLEY Location: [facility] Room#: ZT031-4 Unit#: [id number] Attending Physician: Unknown Admitted: 01/28/09 Service Date: 01/28/09 CHIEF COMPLAINT: My chest and side are hurting. HISTORY OF PRESENT ILLNESS: This is a 58 year old gentleman with known CAD who presented with at least hours of upper abdominal left sided pain and pain involv ing the left anterior anterolateral chest. Some mild shortness of breath. Some n ausea. No vomiting. No stool changes that I am aware of. He was seen in the ER a nd appeared to be acute ill. He was recognized to have an elevated amylase and w as admitted for inpatient evaluation and treatment of the chest pain but with po ssible pancreatitis. PAST MEDICAL HISTORY: He has a hx of severe CAD with multiple interventions, gl aucoma, COPD, diabetes, seizures, hypertension. PAST SURGICAL HISTORY: He has had coronary artery stents on multiple occasions, colonoscopy, TURP, cholecystectomy, hernia repair. CURRENT MEDICATIONS prior to admission were Ambien, Prozac 20 mg, recently incr eased to b.i.d., Ramipril 10 mg daily, Betamol 0.5% Eye Drops, Zocor, Urecholine , Dilantin, Nexium, Imdur, Daypro, Actos, Flonase, Lantus 20 units at hs, Aspiri n, Flomax, Flax Seed Oil, Claritin, Slow-mag, NitroQuick, Daypro, Plavix, Tricor , Zetia, multiple vitamin, Aerobid, Albuterol, Combivent, Calcium, Magnesium, Zi nc tablet, nasal spray, Toprol XL. ALLERGIES: VALIUM, PIPERACILLIN, PHENOBARBITOL, TERAZOSIN AND CODEINE. REVIEW OF SYSTEMS: As per HPI. SOCIAL SITUATION: Enzo has been under some stress. The woman who lived in [facility] for sometime recently moved out. He has less help in that way. He also w orries about her. They are still friends. His several years ago. PHYSICAL EXAMINATION: VITAL SIGNS: He is afebrile. Pulse is 45-55, respirations 12, BP 133/68. GENERA L: Enzo is alert this morning. He is not in marked distress. HEENT: The pupil s are equal, round, and reactive. No acute changes in his gaze. Mucous membranes are hydrated. NECK: Is without masses. CHEST: Diminished but clear breath sounds this morning. CARDIOVASCULAR: Regular, distant. There is a murmur present. He is not tender i n the chest wall. ABDOMEN: Mildly distended. Bowel sounds are present. There is some mild upper a bdominal tenderness without rebound, guarding or palpable masses. /RECTAL: Exams not done. EXTREMITIES: Minimal edema. NEUROLOGIC: Alert. No lateralizing deficits. IMPRESSION: 1) Pain possibly related to pancreatitis. 2) Chest pain with known hx of CAD. 3) Multiple medical problems including diabetes. PLAN: Admit for inpatient treatment and evaluation. Dictated by: Shahram Mccallum M.D. DD 01/29/09 TD 01/29/09 0957/CECILY HISTORY AND PHYSICAL # [id number] documented in this encounter Procedure Notes * Johnnie Duque Physician - 02/05/2009 10:41 AM CDT Associated Order(s): EKG 12-LEAD; EKG 12-LEAD * Aok Scanning, Johnnie Physician - 02/04/2009 1:51 PM CDT Associated Order(s): PROCEDURE PHOTOGRAPHS; PROCEDURE PHOTOGRAPHS * Aok Scanning, [facility] Physician - 02/04/2009 1:11 PM CDT Associated Order(s): TELEMETRY REPORT; TELEMETRY REPORT * David Ferrer MD - 01/29/2009 10:51 AM CDT Associated Order(s): ECG REPORT; ECG REPORT [facility]. [address] [place] [address]. [place], [place] [address] EKG OLIVERIO TINSLEY [id number] [id number] 01/28/09 at 1850. The rhythm is regular, sinu s in origin with a rate of 61 beats per minute. T waves are flattened to inverte d across the tracing. Limb leads show low voltage. Slow R wave progression is se en across the anterior chest leads. Compared with previous tracing dated November 28 2008, electrical axis has shifted to normal currently. Diagnosis: 1) Sinus rhythm, rate 61 beats per minute. 2) Low voltage limb leads. 3) Nonspecific T w ave changes. 4) Slow R wave progression, anteroseptal chest leads, old anterosep henrik wall myocardial infarct cannot be completely ruled out. Dictated by Bronwyn Dictated by: EKG DD 01/29/09 TD 01/29/09/LRG EKG REPORT # [id number] ORDER # * Aok Scanning, [facility] Physician - 01/29/2009 10:31 AM CDT Associated Order(s): TELEMETRY REPORT; TELEMETRY REPORT documented in this encounter Consult Notes * Mary Zhou MD - 01/30/2009 11:50 AM CDT Associated Order(s): IP CONSULT TO GENERAL SURGERY Oliverio Tinsley is a 58 y.o. male referred for evaluation of abnormal CT scan by Dr. Mccallum. Patient complains of abdominal pain and chest pain. The pain was worked up to ex clude cardiac etiology. Laboratory data suggest pancreatitis and since resuscit ation, patient has been pain free. During evaluation, patient had a CT scan modesto t showed soft tissue thickening in the cecum consistent with either prominent il eocecal valve or neoplasm. Patient has had colonoscopy with no pathology noted in the cecal area, but the last one done one year ago was of poor prep. Now modesto t symptoms have resolved, colonoscopy was requested. Past Medical History Diagnosis Date Wrist Sprain [...] angioplasty, 2 stents Hx lap cholecystectomy 05/17/07 Current hospital medications Medication Dose Route Frequency Provider Last Rate Last Dose sodium chloride 0.9 % flush injection 3 mL 3 mL IV BID Shahram Mccallum MD bisacodyl delayed release (DULCOLAX) tablet 10 mg 10 mg Oral See Admin Notes Mary Zhou MD bisacodyl delayed release (DULCOLAX) tablet 20 mg 20 mg Oral See Admin Notes Mary Zhou MD peg 3350-electrolytes (GOLYTELY) oral solution 1 Each 1 Bottle Oral ONCE Artur Zhou MD metoclopramide (REGLAN) injection 10 mg 10 mg IV q 6 hour Mary Zhou MD fluoxetine (PROZAC) capsule 20 mg 20 mg Oral Daily Danii Reynolds MD Last Dose: 20 mg at 01/30/09 09 sodium chloride 0.9 % flush injection 3 mL 3 mL IV See Admin Notes Danii guerra MD Last Dose: 3 mL at 01/29/092121 cetirizine (ZYRTEC) tablet 10 mg 10 mg Oral Daily Danii Reynolds MD Last Dose: 10 mg at 01/30/09 0945 tamsulosin SR 24 hour (FLOMAX) capsule 0.4 mg 0.4 mg Oral PC Daily Danii guerra MD Last Dose: 0.4 mg at 01/29/09 1740 phenytoin (DILANTIN) capsule 200 mg 200 mg Oral BID Danii Reynolds MD [place] Dose: 200 mg at 01/30/09 0932 FENtanyl PF (SUBLIMAZE) 50 mcg/mL injection 25 mcg 25 mcg IV q 1 hour PRN Ro demetrice Mccallum MD albuterol-ipratropium (DUONEB) 0.5-2.5 mg/3 mL inhalation solution 3 mL 3 mL Inhalation Resp q 6 hour Shahram Mccallum MD Last Dose: 3 mL at 01/30/09 11 22 fluticasone (FLOVENT) 110 mcg/Actuation inhaler 2 Puff 2 Puff Inhalation Res p q 12 hour Danii Reynolds MD Last Dose: 2 Puff at 01/30/09 0938 pioglitazone (ACTOS) tablet 30 mg 30 mg Oral Daily Shahram Mccallum MD L ast Dose: 30 mg at 01/29/09 1319 DISCONTD: fluticasone (FLOVENT) 110 mcg/Actuation inhaler 3 Puff 3 Puff Inha lation Resp q 12 hour Danii Reynolds MD Last Dose: 3 Puff at 01/29/09 0935 DISCONTD: enoxaparin (LOVENOX) injection 40 mg 40 mg subCUT Daily Shahram Mccallum MD SODIUM CHLORIDE 0.9 % SYRINGE albuterol (PROVENTIL,VENTOLIN) 90 mcg/Actuation inhaler 2 Puff 2 Puff Inhala tion Resp q 4 h PRN Danii Reynolds MD ramipril (ALTACE) capsule 10 mg 10 mg Oral Daily Danii Reynolds MD Last D ose: 10 mg at 01/30/09 0931 bethanechol (URECHOLINE) tablet 25 mg 25 mg Oral QID Danii Reynolds MD La st Dose: 25 mg at 01/30/09 0900 timolol (TIMOPTIC) 0.5 % ophthalmic solution 1 Drop 1 Drop Both Eyes BID Edy Reynolds MD Last Dose: 1 Drop at 01/30/09 0938 fluticasone (FLONASE) nasal spray 2 [place] 2 [place] Both Nostrils Daily Danii Reynolds MD Last Dose: 2 [place] at 01/30/09937 isosorbide mononitrate (IMDUR) tablet 60 mg 60 mg Oral BID Karena Harman Last Dose: 60 mg at 01/30/09930 simvastatin (ZOCOR) tablet 80 mg 80 mg Oral Daily BEDTIME Danii Reynolds MD Last Dose: 80 mg at 01/29/092121 metoprolol succinate (TOPROL-XL) tablet 25 mg 25 mg Oral Daily Danii rivera MD Last Dose: 25 mg at 01/30/09944 fenofibrate nanocrystallized (TRICOR) tablet 145 mg 145 mg Oral Daily SUPPER Danii Reynolds MD Last Dose: 145 mg at 01/29/091739 ezetimibe (ZETIA) tablet 10 mg 10 mg Oral Daily BEDTIME Danii Reynolds MD Last Dose: 10 mg at 01/29/092121 pantoprazole (PROTONIX) injection 40 mg 40 mg IV Daily Danii Reynolds MD Last Dose: 40 mg at 01/29/092121 ondansetron (ZOFRAN) 4 mg/2 mL injection 4 mg 4 mg IV q 6 hour PRN Danii guerra MD MORPHINE 2 MG/ML SYRINGE insulin glargine (LANTUS) 100 unit/mL injection 20 Units 20 Units subCUT ONC E Danii Reynolds MD DISCONTD: pioglitazone (ACTOS) tablet 30 mg 30 mg Oral Daily Danii Reynolds MD DISCONTD: aspirin (ECOTRIN EC) tablet 81 mg 81 mg Oral Daily Danii Reynolds MD Last Dose: 81 mg at 01/30/09930 DISCONTD: clopidogrel (PLAVIX) tablet 75 mg 75 mg Oral Daily Danii Reynolds MD Last Dose: 75 mg at 01/29/09 152 DISCONTD: sodium chloride 0.9 % infusion IV Continuous Shahram Mccallum MD Stopped at: 01/30/09928 Allergies Allergen Reactions Valium (Diazepam) Other (See Comments) "stops breathing, no pulse" Piperacillin-tazobactam Hives and Rash Breaks out Phenobarbital Other (See Comments) "stops breathing, no pulse" Terazosin Other (See Comments) Chest heaviness, chest pain Codeine Unknown Family History Problem Relation Other Mother Blood pressure Diabetes Mother Respiratory Disease Mother Asthma Mother Other Sister Blood pressure Diabetes Sister Respiratory Disease Sister Heart Disease Sister Asthma Sister Lung Cancer Brother Seizures Brother History Tobacco Use Quit Quit date: 03/08/1995 History Alcohol Use REVIEW OF SYSTEMS: No recent weight loss. No recent history of lower GI bleed. PHYSICAL EXAM: BP 115/56 | Pulse 56 | Temp(Src) 97 F (36.1 C) (Tympanic) | Resp 20 | Ht 5' 6" (1.676 m) | Wt 228 lb 1.6 oz (103.465 kg) | SpO2 100% General appearance: alert, in no distress Lungs: normal respiratory effort Heart: normal rate and regular rhythm Abdomen: obese and distended. Bowel tones present. Non-tender. Extremities: extremities normal, atraumatic, no cyanosis or edema DATA REVIEW: Laboratory data: Lab Results Component Value Date/Time WBC 4.14 01/30/09 4:01 AM HEMOGLOBIN 11.7 01/30/09 4:01 AM HEMATOCRIT 32.4 01/30/09 4:01 AM PLATELETS 244 01/30/09 4:01 AM MCV 83.9 01/30/09 4:01 AM Lab Results Component Value Date/Time SODIUM 135 01/30/09 4:01 AM POTASSIUM 3.6 01/30/09 4:01 AM CHLORIDE 104 01/30/09 4:01 AM CO2 27.2 01/30/09 4:01 AM CALCIUM 8.5 01/30/09 4:01 AM BUN 13.0 01/30/09 4:01 AM CREATININE 0.90 01/30/09 4:01 AM GLUCOSE 120 01/30/09 4:01 AM TOTAL PROTEIN 6.5 01/29/09 6:15 AM ALBUMIN 3.7 01/29/09 6:15 AM BILIRUBIN TOTAL 0.4 01/29/09 6:15 AM ALKALINE PHOSPHATASE 65 01/29/09 6:15 AM AST 217 01/29/09 6:15 AM ALT 103 01/29/09 6:15 AM ANION GAP 7 01/30/09 4:01 AM BUN/CREAT RATIO 14.4 01/30/09 4:01 AM Lab Results Component Value Date/Time AMYLASE 78 06/28/08 9:18 AM Lab Results Component Value Date/Time LIPASE 215 3/25/09 4:01 AM Radiologic Studies: CT ABDOMEN WITH CONTRAST Indication: Abdominal pain. Thin section post contrast imaging performed following administration of IV and oral contrast material. Images reconstructed and reviewed at 1.25 mm intervals. No comparisons. Findings: Images through the lung bases demonstrate postoperative change of previous midli ne sternotomy. Lung bases appear clear apart from mild pleural thickening. Liver and spleen are negative. Gallbladder has been removed. Adrenal glands, pancreas and aorta are unremarkable. Images through the kidneys demonstrate a cystic str ucture arising from the lower pole of the left kidney with an area of high densi ty within it suggesting calcification. This cystic structure measures 2.5 cm x 3 .5 cm and the calcification measures 1 cm in diameter. No hydronephrosis is iden tified. Additional calculus is also present in the lower pole of the left kidney which measures 9 cm. Right kidney is unremarkable. No adenopathy or mesenteric or retroperitoneal adenopathy or mass is identified. CT PELVIS Post contrast images were obtained through the pelvis following administration o f IV and oral contrast material. No comparisons available. Findings: There is a soft tissue density with thickening of the wall in the cecal region s uggesting possible cecal mass versus prominent ileocecal valve. There is marked distention of the urinary bladder. No adenopathy is identified. Seminal vesicles and prostate gland are unremarkable. IMPRESSION: 1. Cystic structure involving the left kidney as described above which may repre sent a dilated duplicated renal collecting system with calculus or cystic lesion with calcification. Additional calculus is also noted in the lower pole of the left kidney. 2. Soft tissue prominence with question of mass versus prominence of the ileocec al valve within the cecum. Would recommend correlation with colonoscopy for peggy tional characterization. 3. Moderate dilatation of the bladder and clinical correlation regarding possibl e bladder outlet obstruction is suggested. ASSESSMENT: Soft tissue prominence in cecum, neoplasm suspected. Due to poor pr ep previously, colonoscopy one year ago was not definitive. Will need aggressiv e bowel prep and repeat colonoscopy. PLAN: 1. Stop Aspirin, Plavix, and Lovenox. 2. Clear liquid diet for 2 days. 3. Will use Golytely prep. 4. Colonoscopy scheduled for Wednesday. documented in this encounter OR Notes * OR Anesthesia - Aok Andie, Johnnie Physician - 02/04/2009 2:32 PM CDT documented in this encounter ED Notes * Kayla Holliday RN - 01/28/2009 7:43 PM CDT Pt states pain "better, tolerable". * Danii Reynolds MD - 01/28/2009 6:40 PM CDT HISTORY OF PRESENT ILLNESS Oliverio Tinsley, a 58 y.o. male presents to the ED with a Chief Complaint of Ch est Pain, Shortness of Breath and Nausea HPI Comments: Pt with extensive cardiac hx, was sitting resting post eating sudd en onset sv mid back pain, with diaphoresis, dyspnea. Dyspnea onset 3 mo ago, g radually worsening. Back Pain This is a new problem. The current episode started less than 1 hour ago. The pro blem occurs constantly. The pain is associated with no known injury. The pain qu ality is described as stabbing. Associated symptoms include chest pain and tingl ing. Pertinent negatives include no fever, no headaches, no abdominal pain, no a bdominal swelling and no bowel incontinence. Patient is a 58 y.o. male presenting with back pain. The history is provided by the patient. REVIEW OF SYSTEMS Review of Systems Constitutional: Positive for diaphoresis. Negative for fever and chills. HENT: Negative for sore throat and neck pain. Respiratory: Positive for shortness of breath (worsening over the last 3 mo). Ne gative for cough and sputum production. Cardiovascular: Positive for chest pain. Negative for palpitations and leg swell ing. Gastrointestinal: Negative for heartburn, nausea, vomiting, abdominal pain and d iarrhea. Musculoskeletal: Positive for back pain. Neurological: Positive for tingling. Negative for dizziness, focal weakness and headaches. Tremors: left arm today. All other systems reviewed and are negative. [...] Piperacillin-tazobactam, Phenobarbital, Terazosin and Codeine HOME MEDICATIONS ZOLPIDEM 10 mg Oral Tab Take 10 mg by mouth nightly as needed for Insomnia. FLUOXETINE 20 mg Oral Tab Take 20 mg by mouth daily. RAMIPRIL 10 mg Oral Tab Take by mouth. BETIMOL 0.5 % OP Drop Administer 1 Drop in both eyes 2 times daily. PROZAC 40 mg Oral Cap Take 40 mg by mouth daily. simvastatin (ZOCOR) 80 mg Oral Tab Take 1 Tab by mouth daily at bedtime. bethanechol (URECHOLINE) 25 mg Oral Tab Take 1 Tab by mouth 4 times daily. phenytoin (PHENYTEK) 200 mg Oral Cap Take 1 Cap by mouth 2 times daily. esomeprazole (NEXIUM) 40 mg Oral CpDR Take 1 Cap by mouth daily before a delmi l. NEXIUM 40 mg Oral CpDR Take 40 mg by mouth daily. isosorbide mononitrate (IMDUR) 60 mg Oral Tb24 [...] 2 Sprays in each nostr il daily. DISCONTD: PROZAC 20 mg Oral Cap Take 20 mg by mouth daily. insulin glargine (LANTUS) 100 unit/mL subCUT [...] for p ain up to 3 tabs oxaprozin (DAYPRO) 600 mg Oral Tab Take 600 mg by mouth daily. PLAVIX 75 mg Oral Tab Take 75 [...] Drop in both eyes 2 times daily. Wqijhdo-Rklbqbziu-Rxsm Oral Tab Take by mouth 2 times [...] 4 hours as needed for P ain. Physical Exam Nursing note and vitals reviewed. Constitutional: He appears well-developed. He appears distressed. HENT: Head: Normocephalic and atraumatic. Eyes: Pupils are equal, round, and reactive to light. Neck: Normal range of motion. Neck supple. Cardiovascular: Normal rate, regular rhythm and intact distal pulses. Pulmonary/Chest: Tachypnea noted. He has decreased breath sounds. He has no whee zes. He has no rhonchi. He has no rales. Abdominal: Soft. Bowel sounds are normal. No tenderness. Musculoskeletal: He exhibits edema (trace right ankle). Skin: Skin is warm and dry. Psychiatric: His mood appears anxious. MDM Coding Reviewed: nursing note and vitals Reviewed previous: x-ray and labs Interpretation: labs, ECG and x-ray DIAGNOSTICS LAB: Results for orders placed during the hospital encounter of 01/28/2009 (from the past 24 hour(s)) LIPASE Component Value Range LIPASE 296 (*) 114-286 (U/L) BRAIN NATRIURETIC PEPTIDE, BNP OR PROBNP Component Value Range BRAIN NATRIURETIC PEPTIDE 146 (*) 0-125 (pg/ml) COMPREHENSIVE METABOLIC PANEL Component Value Range GLUCOSE 147 (*) 70-110 (mg/dl) BUN 21.0 (*) 7-20 (mg/dl) CREATININE 1.20 0.8-1.3 (mg/dl) BUN/CREAT RATIO 17.5 10-20 GFR 66 - (ml/min) SODIUM 136 135-145 (mmol/L) POTASSIUM 4.3 3.3-4.8 (mmol/L) CHLORIDE 101 98-107 (mmol/L) CO2 28.2 22-31 (mmol/L) ANION GAP 11 4-20 CALCIUM 9.2 8.5-10.1 (mg/dl) ALBUMIN 4.4 3.4-5.0 (g/dl) TOTAL PROTEIN 7.4 6.4-8.2 (g/dl) GLOBULIN (CALC) 3.0 - ALBUMIN/GLOBULIN RATIO 1.5 - BILIRUBIN TOTAL 0.3 - (mg/dl) ALKALINE PHOSPHATASE 63 50-136 (IU/L) AST 22 10-40 (IU/L) ALT 37 25-70 (IU/L) CBC WITH MANUAL DIFFERENTIAL Component Value Range BASOPHILS 1 0-2 (%Manual) NEUTROPHILS, SEG 59 30-68 (%Manual) LYMPHOCYTES 31 14-50 (%Manual) MONOCYTE 9 0-11 (%Manual) PLATELET EST. Normal - WBC ESTIMATE Normal - WBC 6.89 3.0-10.4 (x10E3) RBC 4.47 4.15-5.75 (x10E6) HEMOGLOBIN 13.5 (*) 13.8-17.4 (g/dL) HEMATOCRIT 36.7 (*) 38.6-49.4 (%) MCV 82.2 79-100 (fL) MCH 30.1 28-34 (pg) MCHC 36.6 (*) 33-36 (g/dL) RDW 14.0 12.1-14.1 (%) PLATELETS 350 148-408 (x10E3) MPV 6.9 (*) 7.4-10.6 (fL) NEUTROPHILS 62.1 43-73 (%) LYMPHOCYTES 29.1 19-47 (%) MONOCYTES 6.0 3-9 (%) EOSINOPHILS 2.6 0-6 (%) BASOPHILS 0.2 0-1.2 (%) NEUTROPHIL ABSOLUTE 4.28 1.3-7.6 (x10E3) LYMPHOCYTE ABSOLUTE 2.01 0.6-4.9 (x10E3) MONOCYTE ABSOLUTE 0.42 0.1-0.9 (x10E3) EOSINOPHIL ABSOLUTE 0.18 0.0-0.2 (x10E3) BASOPHILS ABSOLUTE 0.01 0-0.1 (x10E3) MAGNESIUM LEVEL Component Value Range MAGNESIUM 1.8 1.8-2.4 (mg/dl) PROTIME-INR Component Value Range PROTIME 11.3 9.5-11.5 (Sec) INR 1.08 (*) 2.0-3.0 MYOGLOBIN Component Value Range MYOGLOBIN, PLASMA 36 16-97 (ng/ml) TROPONIN Component Value Range TROPONIN I LESS THAN 0.04 0-0.4 (ng/ml) PHENYTOIN LEVEL, TOTAL Component Value Range PHENYTOIN TOTAL 21.9 (*) 10-20 (ug/ml) POC GLUCOSE Component Value Range POC GLUCOSE 130 (*) 70-110 (mg/dl) RADIOLOGY: XR CHEST PA OR AP (Results Pending) CXR status post cabg, stable cardiomegaly, unchanged from 06/28/08 EKG: Rate 61, normal sinus, low voltage QRS, anterior q wave PROCEDURES O2 NC, ASA, NTG SL with pain decreased to 6/10, however pain returned to 8/10, M S started tapering MEDICAL DECISION MAKING AND PLAN OF CARE CLINICAL IMPRESSION Encounter Diagnoses Code Name Primary? 577.0 Acute Pancreatitis 786.50F Chest Pain CASE DISCUSSED Pending labs, xray care of pt transferred to Dr Reynolds at 1900 D/w Dr. Fraser will admit to Dr. Mccallum PATIENT COUNSELING Diagnostics reviewed and questions answered. Diagnosis, treatment options and p brianna of care discussed with understanding verbalized. DISPOSITION, EDUCATION AND MEDICATION RECONCILIATION Medications reconciled. See after visit summary for patient education on discha rged patients. documented in this encounter Miscellaneous Notes * Scanned Form - Aok Scanning, [facility] Physician - 02/06/2009 10:49 AM CDT * Scanned Form - Aok Scanning, [facility] Physician - 02/04/2009 2:32 PM CDT * Scanned Form - Aok Scanning, [facility] Physician - 02/04/2009 2:32 PM CDT * Scanned Form - Aok Scanning, [facility] Physician - 02/04/2009 2:32 PM CDT * Care Plan - Fara Sommer RN - 02/01/2009 1:08 PM CDT Problem: Acute Coronary Syndrome (Adult, OB) Goal: Verbalize Understanding: Condition, plan of care, self-management of healt h/lifestyle alterations Patient/Family/S.O. will verbalize an understanding of Acute Coronary Syndrome ( Adult, OB) its impact on present/future lifestyle, health status and functional performance Outcome: Completed Date Met: 02/01/09 Goal met. Pt verbalized understanding of above information during discharge education. Patient discharged to home at 1257 on 02/01/2009, per physician's orders. Pt to have home care follow up; [facility] notified. Goal: Prevent/manage acute pain Refer to Clinical Practice Guideline Outcome: Completed Date Met: 02/01/09 Goal met. Pt denied pain/discomfort prior to his discharge to home. Patient discharged to home at 1257 on 02/01/2009, per physician's orders. Pt to have home care follow up; [facility] notified. Goal: Prevent/manage cardiovascular structural defects Refer to Clinical Practice Guideline Outcome: Completed Date Met: 02/01/09 Goal met. Patient discharged to home at 1257 on 02/01/2009, per physician's orders. Pt to have home care follow up; [facility] notified. Goal: Prevent/manage ischemia --> infarction Refer to Clinical Practice Guideline Outcome: Completed Date Met: 02/01/09 Goal met. No signs or symptoms of ischemia/infarction noted prior to the patient's dismiss al to home. Patient discharged to home at 1257 on 02/01/2009, per physician's orders. Pt to have home care follow up; [facility] notified. Problem: Pancreatitis, Acute/Chronic (Adult, OB) Goal: Verbalize Understanding: Condition, plan of care, self-management of healt h/lifestyle alterations Patient/Family/S.O. will verbalize an understanding of Pancreatitis, Acute/Chron ic (Adult, OB, Pediatric) its impact on present/future lifestyle, health status and functional performance Outcome: Completed Date Met: 02/01/09 Goal met. Pt verbalized understanding of above information during discharge education. Patient discharged to home at 1257 on 02/01/2009, per physician's orders. Pt to have home care follow up; [facility] notified. Goal: Prevent/manage acute pain Refer to Clinical Practice Guideline Outcome: Completed Date Met: 02/01/09 Goal met. Pt denied pain/discomfort prior to his dismissal to home. Patient discharged to home at 1257 on 02/01/2009, per physician's orders. Pt to have home care follow up; [facility] notified. Goal: Prevent/manage fluid imbalance Refer to Clinical Practice Guideline Outcome: Completed Date Met: 02/01/09 Goal met. No signs or symptoms of fluid imbalance noted prior to the patient's dismissal. Pt was tolerating PO fluids and voiding without difficulty. PO fluid intake enco uraged. Patient discharged to home at 1257 on 02/01/2009, per physician's orders. Pt to have home care follow up; [facility] notified. Goal: Prevent/manage gastrointestinal complications Refer to Clinical Practice Guideline Outcome: Completed Date Met: 02/01/09 Goal met. No signs or symptoms of gastrointestinal complications noted prior to the patien t's dismissal to home. Pt was tolerating a cardiac/1800 calorie ADA diet without difficulty. Denied nausea; no vomiting. Patient discharged to home at 1257 on 02/01/2009, per physician's orders. Pt to have home care follow up; [facility] notified. Goal: Prevent/manage metabolic imbalances Refer to Clinical Practice Guideline Outcome: Completed Date Met: 02/01/09 Goal met. No signs or symptoms of metabolic imbalance noted prior to the patient's dismiss al to home. Patient discharged to home at 1257 on 02/01/2009, per physician's orders. Pt to have home care follow up; [facility] notified. * OR Post-Procedure Note - Mary Zhou MD - 02/01/2009 8:42 AM CDT Colonoscopy Procedure Note Procedure: Colonoscopy --diagnostic Pre-operative Diagnosis: Abnormal CT scan Post-operative Diagnosis: rare diverticulosis sigmoid colon; small polyp at 30 c m; internal hemorrhoids Indications: Abdominal CT scan showed prominence at cecum. Sedation: Demerol 50 mg IV, Versed 6 mg IV Pre-Procedure Physical: Current hospital medications Medication Dose Route Frequency Provider Last Rate Last Dose alprazolam (XANAX) tablet 0.5 mg 0.5 mg Oral TID PRN Shahram Mccallum MD Last Dose: 0.5 mg at 01/31/092028 sodium chloride 0.9 % flush injection 3 mL 3 mL IV BID Shahram Mccallum MD Last Dose: 3 mL at 01/31/092033 bisacodyl delayed release (DULCOLAX) tablet 20 mg 20 mg Oral ONCE Mary renee MD Last Dose: 20 mg at 01/31/092032 peg 3350-electrolytes (GOLYTELY) oral solution 1 Each 1 Bottle Oral ONCE Artur Zhou MD Last Dose: 1 Each at 01/31/09 1414 metoclopramide (REGLAN) injection 10 mg 10 mg IV q 6 hour Mary Zhou MD Last Dose: 10 mg at 02/01/09 0630 fluoxetine (PROZAC) capsule 20 mg 20 mg Oral Daily Danii Reynolds MD Last Dose: 20 mg at 01/31/09 0849 sodium chloride 0.9 % flush injection 3 mL 3 mL IV See Admin Notes Danii guerra MD Last Dose: 3 mL at 02/01/09 0631 cetirizine (ZYRTEC) tablet 10 mg 10 mg Oral Daily Danii Reynolds MD Last Dose: 10 mg at 01/31/09 0849 tamsulosin SR 24 hour (FLOMAX) capsule 0.4 mg 0.4 mg Oral PC Daily Danii guerra MD Last Dose: 0.4 mg at 01/31/09 1709 phenytoin (DILANTIN) capsule 200 mg 200 mg Oral BID Danii Reynolds MD [place] Dose: 200 mg at 01/31/092032 FENtanyl PF (SUBLIMAZE) 50 mcg/mL injection 25 mcg 25 mcg IV q 1 hour PRN Ana Maria Mccallum MD albuterol-ipratropium (DUONEB) 0.5-2.5 mg/3 mL inhalation solution 3 mL 3 mL Inhalation Resp q 6 hour Shahram Mccallum MD Last Dose: 3 mL at 02/01/09 06 15 fluticasone (FLOVENT) 110 mcg/Actuation inhaler 2 Puff 2 Puff Inhalation Res p q 12 hour Danii Reynolds MD Last Dose: 2 Puff at 01/31/092029 pioglitazone (ACTOS) tablet 30 mg 30 mg Oral Daily Shahram Mccallum MD L ast Dose: 30 mg at 01/31/09 1514 SODIUM CHLORIDE 0.9 % SYRINGE albuterol (PROVENTIL,VENTOLIN) 90 mcg/Actuation inhaler 2 Puff 2 Puff Inhala tion Resp q 4 h PRN Danii Reynolds MD ramipril (ALTACE) capsule 10 mg 10 mg Oral Daily Danii Reynolds MD Last D ose: 10 mg at 01/31/09 0849 bethanechol (URECHOLINE) tablet 25 mg 25 mg Oral QID Danii Reynolds MD [place] st Dose: 25 mg at 01/31/092031 timolol (TIMOPTIC) 0.5 % ophthalmic solution 1 Drop 1 Drop Both Eyes BID Edy Reynolds MD Last Dose: 1 Drop at 01/31/092029 fluticasone (FLONASE) nasal spray 2 [place] 2 [place] Both Nostrils Daily Danii Reynolds MD Last Dose: 2 [place] at 01/31/0952 isosorbide mononitrate (IMDUR) tablet 60 mg 60 mg Oral BID Karena Harman Last Dose: 60 mg at 01/31/092031 simvastatin (ZOCOR) tablet 80 mg 80 mg Oral Daily BEDTIME Danii Reynolds MD Last Dose: 80 mg at 01/31/092031 metoprolol succinate (TOPROL-XL) tablet 25 mg 25 mg Oral Daily Danii rivera MD Last Dose: 25 mg at 01/31/09 0849 fenofibrate nanocrystallized (TRICOR) tablet 145 mg 145 mg Oral Daily SUPPER Danii Reynolds MD Last Dose: 145 mg at 01/31/09 1709 ezetimibe (ZETIA) tablet 10 mg 10 mg Oral Daily BEDTIME Danii Reynolds MD Last Dose: 10 mg at 01/31/092031 pantoprazole (PROTONIX) injection 40 mg 40 mg IV Daily Danii Reynolds MD Last Dose: 40 mg at 01/31/092030 ondansetron (ZOFRAN) 4 mg/2 mL injection 4 mg 4 mg IV q 6 hour PRN Danii guerra MD MORPHINE 2 MG/ML SYRINGE insulin glargine (LANTUS) 100 unit/mL injection 20 Units 20 Units subCUT ONC E Danii Reynolds MD Valium, Piperacillin-tazobactam, Phenobarbital, Terazosin and Codeine BP 149/89 | Pulse 95 | Temp(Src) 97.9 F (36.6 C) (Tympanic) | Resp 20 | Ht 5 ' 6" (1.676 m) | Wt 220 lb 8 oz (100.018 kg) | SpO2 96% Airway: normal Heart: normal S1 and S2 Lungs: Diffuse bronchial breath sounds Abdomen: soft, nontender, normal bowel sounds Mental Status: awake and alert; oriented to person, place, and time Procedure Details Informed consent was obtained for the procedure, including sedation. Risks of p erforation, hemorrhage, adverse drug reaction and aspiration were discussed. The patient was placed in the left lateral decubitus position. Based on the pre-pr ocedure assessment, including review of the patient's medical history, medicatio ns, allergies, and review of systems, he had been deemed to be an appropriate ca ndidate for conscious sedation; he was therefore sedated with the medications li sted below. The patient was monitored continuously with ECG tracing, pulse oxi metry, blood pressure monitoring, and direct observations. A rectal examination was performed. The Olympus colonoscope was inserted into t he rectum and advanced under direct vision to the cecum, which was identified by the appendiceal orifice. The quality of the colonic preparation was satisfacto ry. A careful inspection was made as the colonoscope was withdrawn, including a retroflexed view of the rectum; findings and interventions are described below. Appropriate photodocumentation was obtained. Findings: -diverticulosis, mild in degree, involving the sigmoid -hemorrhoids (internal), Small in size -polyp(s) - #1, 2 mm in size, located in 30 cm, removed by cold biopsy and sent for pathology Specimens: biopsies of appendiceal orifice, ileocecal valve, and 30 cm polyp Complications: None; patient tolerated the procedure well. Impression: -See post-procedure diagnoses. Recommendations: -Await pathology., -Follow up with me. * Care Plan - Althea Phipps RN - 01/31/2009 10:19 AM CDT Problem: Acute Coronary Syndrome (Adult, OB) Goal: Prevent/manage acute pain Refer to Clinical Practice Guideline Outcome: Ongoing Reviewed with pt the plans for care today, is aware will have the prep for the c olonoscopy at 2 pm today,Dr Zhou will do the colonoscopy,possible biopsy,modera te sedation in the am. * Care Plan - Monique Sarmiento RN - 01/30/2009 11:57 PM CDT Problem: Acute Coronary Syndrome (Adult, OB) Goal: Prevent/manage acute pain Refer to Clinical Practice Guideline Outcome: Ongoing Oxygen therapy prn. Pt. Remains pain free. * Scanned Form - Aok Scanning, [facility] Physician - 01/30/2009 10:36 AM CDT * Scanned Form - Aok Scanning, [facility] Physician - 01/29/2009 11:37 AM CDT * Care Plan - Jennifer Sumner RN - 01/28/2009 11:22 PM CDT Problem: Pancreatitis, Acute/Chronic (Adult, OB) Goal: Verbalize Understanding: Condition, plan of care, self-management of healt h/lifestyle alterations Patient/Family/S.O. will verbalize an understanding of Pancreatitis, Acute/Chron ic (Adult, OB, Pediatric) its impact on present/future lifestyle, health status and functional performance Outcome: Ongoing Pt aware he will not be given food until further orders * Care Plan - Jennifer Sumner RN - 01/28/2009 11:20 PM CDT Problem: Acute Coronary Syndrome (Adult, OB) Goal: Prevent/manage acute pain Refer to Clinical Practice Guideline Outcome: Ongoing PAIN MEDS WILL BE GIVEN ORDERED documented in this encounter Plan of Treatment Order Schedule Name Type Priority Associated Diag noses Ordered: 02/01/2009 AMB REFERRAL TO HOME CARE Outpatient Routine Foll ow-Up Examination, Referral Following Unspecified Surgery documented as of this encounter Procedures Comments Procedure Name Priority Date/Time Associated Diag nosis EKG 12-LEAD Stat 02/05/2009 10:44 AM CDT PROCEDURE PHOTOGRAPHS 02/04/2009 1:57 PM CDT TELEMETRY REPORT 02/04/2009 1:16 PM CDT COLONOSCOPY 02/01/2009 3:45 PM CDT PATHOLOGY Routine 02/01/2009 1:18 PM CDT POC GLUCOSE Routine 02/01/2009 10:59 AM CDT CBC WITH DIFFERENTIAL Routine 02/01/2009 4:30 AM CDT BASIC METABOLIC PANEL Routine 02/01/2009 4:30 AM CDT CBC WITH DIFFERENTIAL Routine 01/30/2009 4:01 AM CDT LIPASE Routine 01/30/2009 4:01 AM CDT BASIC METABOLIC PANEL Routine 01/30/2009 4:[address] ABDOMEN PELVIS W Routine 01/29/2009 CONTRAST 11:48 AM CDT ECG REPORT 01/29/2009 10:52 AM CDT TELEMETRY REPORT 01/29/2009 10:38 AM CDT CARDIAC ENZYMES Stat 01/29/2009 6:15 AM CDT CBC WITH DIFFERENTIAL Routine 01/29/2009 6:15 AM CDT TROPONIN Stat 01/29/2009 6:15 AM CDT LIPASE Routine 01/29/2009 6:15 AM CDT COMPREHENSIVE METABOLIC Routine 01/29/2009 PANEL 6:15 AM CDT TROPONIN Stat 01/29/2009 1:00 AM CDT TROPONIN Stat 01/28/2009 10:10 PM CDT MYOGLOBIN Stat 01/28/2009 10:10 PM CDT POC GLUCOSE Routine 01/28/2009 7:17 PM CDT XR CHEST PA OR AP 1 VW Stat 01/28/2009 7:10 PM CDT PROTIME-INR Stat 01/28/2009 6:51 PM CDT D-DIMER Stat 01/28/2009 6:51 PM CDT CBC WITH MANUAL Stat 01/28/2009 DIFFERENTIAL 6:51 PM CDT TROPONIN Stat 01/28/2009 6:51 PM CDT BRAIN NATRIURETIC Stat 01/28/2009 PEPTIDE, BNP OR PROBNP 6:51 PM CDT MYOGLOBIN Stat 01/28/2009 6:51 PM CDT MAGNESIUM LEVEL Stat 01/28/2009 6:51 PM CDT LIPASE Stat 01/28/2009 6:51 PM CDT PHENYTOIN LEVEL, TOTAL Stat 01/28/2009 6:51 PM CDT COMPREHENSIVE METABOLIC Stat 01/28/2009 PANEL 6:51 PM CDT documented in this encounter Results * EKG 12-LEAD (02/05/2009 10:44 AM CDT) Narrative Performed At This result has an attachment that is n ot available. Procedure Note 02/05/2009 10:41 AM CDT * PROCEDURE PHOTOGRAPHS (02/04/2009 1:57 PM CDT) Narrative Performed At This result has an attachment that is n ot available. Procedure Note 02/04/2009 1:51 PM CDT * TELEMETRY REPORT (02/04/2009 1:16 PM CDT) Narrative Performed At This result has an attachment that is n ot available. Procedure Note 02/04/2009 1:11 PM CDT * PATHOLOGY (02/01/2009 1:18 PM CDT) SURGICAL Name: [facility] PATHOLOGY : PATHOLOGY 49 Location: [facility] Sex: M Unit#: [id number] Room/Bed: [place] [address] Att: U Unknown RECD: 02/01/09 PROCEDURE DATE: 02/01/[address] [facility] [address]: Mary Zhou M.D. DR: ICD CODES: 211.3 PROCEDURES: [id number] LOCATION: [facility] MATERIAL SUBMITTED A) Biopsy of appendiceal orifice. B) Biopsy of ileocecal valve. C) Biopsy of polyp at 30 cm. CLINICAL HISTORY: Polyp 30 cm, rare diverticulosis sigmoid, internal hemorrhoids. Procedure: Colonoscopy. Technical component performed at [facility], [address] [place] [address]. GROSS DESCRIPTION A) In formalin labeled appendiceal orifice biopsy is a cylindrical piece of echeverria to brown tissue which is 0.6 cm long and 0.1 cm in diameter. 1//NG. B) In formalin labeled ileocecal valve biopsy are two fragments of soft echeverria tissue measuring up to 0.1 cm in greatest dimension. 2//NG. C) In formalin labeled 30 cm polyp biopsy are two fragments of echeverria tissue measuring up to 0.3 cm in greatest dimension. 2//NG. Dictated by:Rafael Dye M.D. TD:02/01/09 - 3425 [facility] MICROSCOPIC DESCRIPTION A) Sections reveal benign colonic mucosa. Colon crypts are simple, straight. Goblet cell population is decreased. Inflammatory cells are increased in the lamina propria. Neutrophils are seen in the lamina propria and rarely in crypt epithelium. Focally, epithelium lining some crypts appears tufted and serrated. Neoplastic changes are not recognized. B) Sections are of benign colonic mucosa. Colon crypts are simple, straight and extend to the muscularis mucosa layer. Goblet cell population appears slightly decreased. Inflammatory cells are prominent, consisting mostly of mononuclear cells. Basal plasmacytosis is not appreciated. Active inflammation is not seen. No evidence of neoplasia is identified. C) Sections reveal focal ulceration of the colonic mucosa. Enlarged crypts are seen lined by adenomatous type columnar epithelial cells. These cells have enlarged, hyperchromatic, pseudostratified nuclei. Mitotic figures are seen at all levels of the crypts and near the surface. Some of the crypts have tufted epithelium giving luminal surfaces a serrated CONTINUED ON NEXT PAGE Specimen # [id number] OLIVERIO TINSLEY (Continued) MICROSCOPIC DESCRIPTION (Continued) appearance. Invasive neoplasm is not recognized. Dictated by:Mahsa Bernard M.D., V. TD:02/04/091040 [place] FINAL DIAGNOSIS A) Biopsy of appendiceal orifice: Benign colonic mucosa with mild active colitis. B) Biopsy, ileocecal valve: Benign colonic mucosa. C) Biopsy polyp at 30 cm: Tubular adenoma. Dictated by: Mahsa Bernard M.D., V. TD:02/04/09 - 1041 [place] Signed (electronic signature) David Bernard M.D. 02/04/09 7215 END OF REPORT Comment: , ,,,, Specimen Specimen of unknown material (specimen) Performing Organization Address City/State/Zipcode Ph one Number [facility] CLIA# [id number] [place], [place] [address] [facility] [address] [place] [address] * POC GLUCOSE (02/01/2009 10:59 AM CDT) POC GLUCOSE 206 (H)Comment: Luigi Kaur 70 - 110 mg/dl [facility], Point of Care [facility] Kacey,,,[facility] Specimen Capillary blood specimen (specimen) Performing Organization Address City/[facility] Ph one Number [facility]FACE [facility] CLIA# [id number] Leonides JE[place] S [address] [facility] [address] [place] [address] * BASIC METABOLIC PANEL (02/01/2009 4:30 AM CDT) [facility] GLUCOSE 125 (H) 70 - 110 mg/dl [facility] BUN 11.0 7 - 20 mg/dl [facility] CREATININE 0.80 0.8 - 1.3 mg/dl [facility] BUN/CREAT RATIO 13.8 10 - 20 [facility] GFR 105 >90 ml/min [facility] SODIUM 135 135 - 145 mmol/L [facility] POTASSIUM 3.5 3.3 - 4.8 mmol/L [facility] CHLORIDE 103 98 - 107 mmol/L [facility] CO2 23.9 22 - 31 mmol/L [facility] ANION GAP 12 4 - 20 [facility] CALCIUM 9.2Comment: [facility] 8.5 - 10.1 mg/dl [facility] ACCT#[id number], ,,,, [facility] Specimen Blood specimen (specimen) Performing Organization Address City/[facility] Ph one Number INTERFACE [facility] CLIA# [id number] [place] [facility], Leonides S [address] [facility] [address] [facility] * CBC WITH DIFFERENTIAL (02/01/2009 4:30 AM CDT) [facility] WBC 5.05 3.0 - 10.4 x10E3 [facility] RBC 4.31 4.15 - 5.75 x10E6 [facility] HEMOGLOBIN 13.1 (L) 13.8 - 17.4 g/dL [facility] HEMATOCRIT 36.0 (L) 38.6 - 49.4 % [facility] MCV 83.6 79 - 100 fL [facility] MCH 30.3 28 - 34 pg [facility] MCHC 36.3 (H) 33 - 36 g/dL [facility] RDW 13.7 12.1 - 14.1 % [facility] PLATELETS 277 148 - 408 x10E3 [facility] MPV 8.2 7.4 - 10.6 fL [facility] NEUTROPHILS 67.7 43 - 73 % [facility] LYMPHOCYTES 21.3 19 - 47 % [facility] MONOCYTES 8.3 3 - 9 % [facility] EOSINOPHILS 2.4 0 - 6 % [facility] BASOPHILS 0.2 0 - 1.2 % [facility] NEUTROPHIL 3.42 1.3 - 7.6 x10E3 [facility] LYMPHOCYTE 1.08 0.6 - 4.9 x10E3 [facility] MONOCYTE 0.42 0.1 - 0.9 x10E3 [facility] EOSINOPHIL 0.12 0.0 - 0.2 x10E3 [facility] BASOPHILS 0.01Comment: [facility]ITAL[facility]ANIEL[facility] 0 - 0.1 x10E3 [facility] ABSOLUTE ACCT#[id number], ,,,, [facility] Specimen Blood specimen (specimen) Performing Organization Address City/[facility] one Number [facility] CLIA# [id number] [place] [facility], Leonides S [address] [facility] [address] [place] [address] * LIPASE (01/30/2009 4:01 AM CDT) LIPASE 215Comment: [facility] 114 - 286 U/L [facility] ACCT#[id number], ,,,, [place] [facility] Specimen Blood specimen (specimen) Performing Organization Address [facility] Ph one Number [facility] CLIA# [id number] [place] [facility], Leonides S [address] [facility] [address] [place] [address] * BASIC METABOLIC PANEL (01/30/2009 4:01 AM CDT) GLUCOSE 120 (H) 70 - 110 mg/dl [facility] BUN 13.0 7 - 20 mg/dl [facility] CREATININE 0.90 0.8 - 1.3 mg/dl [facility] BUN/CREAT RATIO 14.4 10 - 20 [facility] GFR 92 >90 ml/min [facility] SODIUM 135 135 - 145 mmol/L [facility] POTASSIUM 3.6 3.3 - 4.8 mmol/L [facility] CHLORIDE 104 98 - 107 mmol/L [facility] CO2 27.2 22 - 31 mmol/L [facility] ANION GAP 7 4 - 20 [facility] CALCIUM 8.5Comment: [facility],[place] 8.5 - 10.1 mg/dl [facility] ACCT#[id number], ,,,, [facility] Specimen Blood specimen (specimen) Performing Organization Address City/State/Zipcode Ph one Number [facility] HOLMANIA# [id number] Leonides JEFFERSON S [address] [facility] [address] [facility] * CBC WITH DIFFERENTIAL (01/30/2009 4:01 AM CDT) WBC 4.14 3.0 - 10.4 x10E3 [facility] RBC 3.86 (L) 4.15 - 5.75 x10E6 [facility] HEMOGLOBIN 11.7 (L) 13.8 - 17.4 g/dL [facility] HEMATOCRIT 32.4 (L) 38.6 - 49.4 % [facility] MCV 83.9 79 - 100 fL [facility] MCH 30.4 28 - 34 pg [facility] MCHC 36.2 (H) 33 - 36 g/dL [facility] RDW 13.7 12.1 - 14.1 % [facility] PLATELETS 244 148 - 408 x10E3 [facility] MPV 8.3 7.4 - 10.6 fL [facility] NEUTROPHILS 60.6 43 - 73 % [facility] LYMPHOCYTES 29.4 19 - 47 % [facility] MONOCYTES 6.8 3 - 9 % [facility] EOSINOPHILS 3.0 0 - 6 % [facility] BASOPHILS 0.1 0 - 1.2 % [facility] NEUTROPHIL 2.51 1.3 - 7.6 x10E3 [facility] LYMPHOCYTE 1.22 0.6 - 4.9 x10E3 [facility] MONOCYTE 0.28 0.1 - 0.9 x10E3 [facility] EOSINOPHIL 0.13 0.0 - 0.2 x10E3 [facility] BASOPHILS 0.00Comment: [facility]ANJ[facility]V,GAB 0 - 0.1 x10E3 [facility] ACCT#[id number], ,,,, [facility] Specimen Blood specimen (specimen) Performing Organization Address City/State/Zipcode Ph one Number [facility] [id number] [facility] Leonides S [address] [facility] [address] [facility] * CT ABDOMEN PELVIS W CONTRAST (01/29/2009 11:48 AM CDT) Specimen Impressions Performed At : 1. Cystic structure involving the lef t kidney as described above which may represent a dilated duplicated garland l collecting system with calculus or cystic lesion with calcification. Additional calculus is also noted in the lower pole of the left kidney. 2. Soft tissue prominence with questi on of mass versus prominence of the ileocecal valve within the cecum. Wou ld recommend correlation with colonoscopy for additional characteriza tion. 3. Moderate dilatation of the bladder and clinical correlation regarding possible bladder outlet obstruction is suggested. Narrative Performed At CT ABDOMEN WITH CONTRAST Indication: Abdominal pain. Thin section post contrast imaging perf ormed following administration of IV and oral contrast material. Images reconstructed and reviewed at 1.25 mm intervals. No comparisons. Findings: Images through the lung bases demonstra te postoperative change of previous midline sternotomy. Lung bas es appear clear apart from mild pleural thickening. Liver and spleen are negative. Gallbladder has been removed. Adrenal glands, pancreas and aorta are unremarkable. Images through the kidneys demonstrate a cysti c structure arising from the lower pole of the left kidney with an area of high density within it suggesting calcification. This cystic structure measures 2.5 cm x 3.5 cm and the calcification measures 1 cm in diameter . No hydronephrosis is identified. Additional calculus is al so present in the lower pole of the left kidney which measures 9 cm. Righ t kidney is unremarkable. No adenopathy or mesenteric or retroperito serafin adenopathy or mass is identified. CT PELVIS Post contrast images were obtained thro ugh the pelvis following administration of IV and oral contrast material. No comparisons available. Findings: There is a soft tissue density with thi ckening of the wall in the cecal region suggesting possible cecal mass v ersus prominent ileocecal valve. There is marked distention of the urina ry bladder. No adenopathy is identified. Seminal vesicles and pros whitt gland are unremarkable. Procedure Note Wally Sharpe MD - 01/29/2009 3:[address] ABDOMEN WITH CONTRAST Indication: Abdominal pain. Thin section post contrast imaging performed following administration of IV and oral contrast material. Images reconstructed and reviewed at 1.25 mm intervals. No comparisons. Findings: Images through the lung bases demonstrate postoperative change of previous midline sternotomy. Lung bases appear clear apart from mild pleural thickening. Liver and spleen are negative. Gallbladder has been removed. Adrenal glands, pancreas and aorta are unremarkable. Images through the kidneys demonstrate a cystic structure arising from the lower pole of the left kidney with an area of high density within it suggesting calcification. This cystic structure measures 2.5 cm x 3.5 cm and the calcification measures 1 cm in diameter. No hydronephrosis is identified. Additional calculus is also present in the lower pole of the left kidney which measures 9 cm. Right kidney is unremarkable. No adenopathy or mesenteric or retroperitoneal adenopathy or mass is identified. CT PELVIS Post contrast images were obtained through the pelvis following administration of IV and oral contrast material. No comparisons available. Findings: There is a soft tissue density with thickening of the wall in the cecal region suggesting possible cecal mass versus prominent ileocecal valve. There is marked distention of the urinary bladder. No adenopathy is identified. Seminal vesicles and prostate gland are unremarkable. IMPRESSION: 1. Cystic structure involving the left kidney as described above which may represent a dilated duplicated renal collecting system with calculus or cystic lesion with calcification. Additional calculus is also noted in the lower pole of the left kidney. 2. Soft tissue prominence with question of mass versus prominence of the ileocecal valve within the cecum. Would recommend correlation with colonoscopy for additional characterization. 3. Moderate dilatation of the bladder a nd clinical correlation regarding possible bladder outlet obstruction is suggested. * ECG REPORT (01/29/2009 10:52 AM CDT) Procedure Note David Bernard MD - 01/29/2009 10:51 AM CDT [facility]. [address] [place] [address]. [place], [place] [address] EKG OLIVERIO TINSLEY [id number] 01/28/09 at 1850. The rhythm is regular, sinus in origin with a rate of 61 beats per minute. T waves are flattened to inverted across the tracing. Limb leads show low voltage. Slow R wave progression is seen across the anterior chest leads. Compared with previous tracing dated November 28 2008, electrical axis has shifted to normal currently. Diagnosis: 1) Sinus rhythm, rate 61 beats per minute. 2) Low voltage limb leads. 3) Nonspecific T wave changes. 4) Slow R wave progression, anteroseptal chest leads, old anteroseptal wall myocardial infarct cannot be completely ruled out. Dictated by Debbie. Dictated by: EKG DD 01/29/09 TD 01/29/09/LRG EKG REPORT # [id number] ORDER # * TELEMETRY REPORT (01/29/2009 10:38 AM CDT) Narrative Performed At This result has an attachment that is n ot available. Procedure Note 01/29/2009 10:31 AM CDT * COMPREHENSIVE METABOLIC PANEL (01/29/2009 6:15 AM CDT) GLUCOSE 98 70 - 110 mg/dl [facility] BUN 24.0 (H) 7 - 20 mg/dl [facility] CREATININE 1.10 0.8 - 1.3 mg/dl [facility] BUN/CREAT RATIO 21.8 (H) 10 - 20 [facility] GFR 73 >90 ml/min [facility] SODIUM 140 135 - 145 mmol/L [facility] POTASSIUM 4.1 3.3 - 4.8 mmol/L [facility] CHLORIDE 104 98 - 107 mmol/L [facility] CO2 25.6 22 - 31 mmol/L [facility] ANION GAP 15 4 - 20 [facility] CALCIUM 8.4 (L) 8.5 - 10.1 mg/dl [facility] ALBUMIN 3.7 3.4 - 5.0 g/dl [facility] TOTAL PROTEIN 6.5 6.4 - 8.2 g/dl [facility] GLOBULIN (CALC) 2.8 [facility] ALBUMIN/GLOBULI 1.3 [facility] RATIO [place] [facility] BILIRUBIN TOTAL 0.4 <1.1 mg/dl [facility] ALKALINE 65 50 - 136 IU/L [facility] AST 217 (H) 10 - 40 IU/L [facility] ALT 103 (H)Comment: 25 - 70 IU/L [facility] ACCT#[id number], ,,,, [facility] Specimen Blood specimen (specimen) Performing Organization Address City/State/Zipcode Ph one Number INTERFACE SYSTEM [facility] [place]# [id number] Leonides JEFF[place] S [address] [facility] [address] [facility] * CBC WITH DIFFERENTIAL (01/29/2009 6:15 AM CDT) WBC 5.04 3.0 - 10.4 x10E3 [facility] RBC 4.04 (L) 4.15 - 5.75 x10E6 [facility] HEMOGLOBIN 12.4 (L) 13.8 - 17.4 g/dL [facility] HEMATOCRIT 33.7 (L) 38.6 - 49.4 % [facility] MCV 83.4 79 - 100 fL [facility] MCH 30.7 28 - 34 pg [facility] MCHC 36.7 (H) 33 - 36 g/dL [facility] RDW 13.7 12.1 - 14.1 % [facility] PLATELETS 268 148 - 408 x10E3 [facility] MPV 7.5 7.4 - 10.6 fL [facility] NEUTROPHILS 57.3 43 - 73 % [facility] LYMPHOCYTES 32.2 19 - 47 % [facility] MONOCYTES 7.7 3 - 9 % [facility] EOSINOPHILS 2.7 0 - 6 % [facility] BASOPHILS 0.1 0 - 1.2 % [facility] NEUTROPHIL 2.88 1.3 - 7.6 x10E3 [facility] LYMPHOCYTE 1.63 0.6 - 4.9 x10E3 [facility] MONOCYTE 0.39 0.1 - 0.9 x10E3 [facility] EOSINOPHIL 0.14 0.0 - 0.2 x10E3 [facility] BASOPHILS 0.01Comment: [facility] [place] 0 - 0.1 x10E3 [facility] ACCT#[id number], ,,,, CENTER [facility] Specimen Blood specimen (specimen) Performing Organization Address [facility] one Number INTERFACE [facility] [id number] [place] JEFF[place] [address] [facility] [address] [place] [address] * LIPASE (01/29/2009 6:15 AM CDT) LIPASE 188Comment: [facility] [place] 114 - 286 U/L [facility] ACCT#[id number], ,,,, CENTER [facility] Specimen Blood specimen (specimen) Performing Organization Address [facility] one Number INTERFACE SYSTEM [facility] CLIA# [id number] [place] S [address] [facility] [address] [place] [address] * TROPONIN (01/29/2009 6:15 AM CDT) TROPONIN I 0.04Comment: [facility] 0 - 0.4 ng/ml [facility] ACCT#[id number], ,,,, CENTER [facility] Specimen Performing Organization Address [facility] one Number INTERFACE SYSTEM [facility] CLIA# [id number] [place] [address] [facility] [address] [place] [address] * CARDIAC ENZYMES (01/29/2009 6:15 AM CDT) INTERPRETATION See below. [facility] Comment: [place] INTERPRETATION - 01/29/09 [facility] Normal cardiac marker series, no evidence of acute myocardial infarction. Linda Elise. [place], [place] ACCT#[id number], ,,,, Specimen Blood specimen (specimen) Performing Organization Address [facility] CLIA# [id number] [place] S [address] [facility] [address] [place] [address] * TROPONIN (01/29/2009 1:00 AM CDT) [facility] TROPONIN I LESS THAN 0.04Comment: 0 - 0.4 ng/ml [facility] ACCT#[id number], ,,,, [facility] Specimen Performing Organization Address [facility] [place] CLIA# [id number] Leonides JEFFERSON [address] [facility] [address] [place] [address] * TROPONIN (01/28/2009 10:10 PM CDT) [facility] TROPONIN I LESS THAN 0.04Comment: 0 - 0.4 ng/ml [facility] ACCT#[id number], ,,,, [facility] Specimen Performing Organization Address [facility] CLIA# [id number] [place] JEFFERSON [address] [facility] [address] [place] [address] * MYOGLOBIN (01/28/2009 10:10 PM CDT) [facility] MYOGLOBIN, 35Comment: [facility] 16 - 97 ng/ml [facility] PLASMA ACCT#[id number], ,,,, CENTER [facility] Specimen Performing Organization Address [facility] CLIA# [id number] Leon[place] JEFF[place] [address] [facility] [address] [place] [address] * POC GLUCOSE (01/28/2009 7:17 PM CDT) [facility] POC GLUCOSE 130 (H)Comment: Mercedes 70 - 110 mg/dl [facility], Point of Care CENTER [facility],,,, [facility] Specimen Capillary blood specimen (specimen) Performing Organization Address [facility] Ph one Number [facility] CLIA# [id number] [place] [address] [facility] [address] [place] [address] * XR CHEST PA OR AP (01/28/2009 7:10 PM CDT) Specimen Impressions Performed At : Pulmonary vascular congestion with smal l left pleural effusion. Narrative Performed At PORTABLE CHEST Indication: Chest pain. Comparison is made with November 28 9. Postoperative change of previous midlin e sternotomy is noted. There is mild cardiomegaly. There is a small l eft pleural effusion present. There is mild pulmonary vascular conges tion. Gross congestive failure, pneumothorax or consolidating pneumonia is not identified. Procedure Note Wally Sharpe MD - 01/29/2009 12:15 PM CDT PORTABLE CHEST Indication: Chest pain. Comparison is made with November 28, 2008. Postoperative change of previous midline sternotomy is noted. There is mild cardiomegaly. There is a small left pleural effusion present. There is mild pulmonary vascular congestion. Gross congestive failure, pneumothorax or consolidating pneumonia is not identified. IMPRESSION: Pulmonary vascular congestion with small left pleural effusion. * PHENYTOIN LEVEL, TOTAL (01/28/2009 6:51 PM CDT) PHENYTOIN TOTAL 21.9 (H)Comment: 10 - 20 ug/ml [facility] ACCT#[id number], ,,,, [facility] Specimen Blood specimen (specimen) Performing Organization Address [facility] one Number [facility]# [id number] [facility] Leonides [place]IN[place] [address] [facility] [address] [place] [address] * TROPONIN (01/28/2009 6:51 PM CDT) TROPONIN I LESS THAN 0.04Comment: 0 - 0.4 ng/ml [facility] ACCT#[id number], ,,,, [facility] Specimen Performing Organization Address [facility] Ph one Number INTERFACE [facility]# [id number] Leonides JEFF[place] [address] [facility] [address] [place] [address] * MYOGLOBIN (01/28/2009 6:51 PM CDT) Pathologist [facility] MYOGLOBIN, 36Comment: [facility] S[facility] 16 - 97 ng/ml [facility] PLASMA ACCT#[id number], ,,,, CENTER [facility] Specimen Performing Organization Address [facility] Ph one Number INTERFACE [facility]# [id number] Leonides JEFFERSON [address] [facility] [address] [place] [address] * PROTIME-INR (01/28/2009 6:51 PM CDT) Pathologist [facility] PROTIME 11.3 9.5 - 11.5 Sec [facility] INR 1.08 (L)Comment: 2.0 - 3.0 [facility] ACCT#[id number], ,,,[facility] Specimen Blood specimen (specimen) Performing Organization Address [facility] one Number INTERFACE [facility]# [id number] Leonides JEFFEROSN [address] [facility] [address] [place] [address] * MAGNESIUM LEVEL (01/28/2009 6:51 PM CDT) [facility] MAGNESIUM 1.8Comment: [facility] LYNN 1.8 - 2.4 mg/dl [facility] ACCT#[id number], ,,,, [place] [facility] Specimen Blood specimen (specimen) Performing Organization Address [facility] Ph one Number INTERFACE [facility]# [id number] Leonides JEFFERSON [address] [facility] [address] [place] [address] * CBC WITH MANUAL DIFFERENTIAL (01/28/2009 6:51 PM CDT) BASOPHILS 1 0 - 2 %Manual [facility] NEUTROPHILS, 59 30 - 68 %Manual [facility] LYMPHOCYTES 31 14 - 50 %Manual [facility] MONOCYTE 9 0 - 11 %Manual [facility] PLATELET EST. Normal [facility] WBC ESTIMATE Normal [facility] WBC 6.89 3.0 - 10.4 x10E3 [facility] RBC 4.47 4.15 - 5.75 x10E6 [facility] HEMOGLOBIN 13.5 (L) 13.8 - 17.4 g/dL [facility] HEMATOCRIT 36.7 (L) 38.6 - 49.4 % [facility] MCV 82.2 79 - 100 fL [facility] MCH 30.1 28 - 34 pg [facility] MCHC 36.6 (H) 33 - 36 g/dL [facility] RDW 14.0 12.1 - 14.1 % [facility] PLATELETS 350 148 - 408 x10E3 [facility] MPV 6.9 (L) 7.4 - 10.6 fL [facility] NEUTROPHILS 62.1 43 - 73 % [facility] LYMPHOCYTES 29.1 19 - 47 % [facility] MONOCYTES 6.0 3 - 9 % [facility] EOSINOPHILS 2.6 0 - 6 % [facility] BASOPHILS 0.2 0 - 1.2 % [facility] NEUTROPHIL 4.28 1.3 - 7.6 x10E3 [facility] LYMPHOCYTE 2.01 0.6 - 4.9 x10E3 [facility] MONOCYTE 0.42 0.1 - 0.9 x10E3 [facility] EOSINOPHIL 0.18 0.0 - 0.2 x10E3 [facility] BASOPHILS 0.01Comment: [facility]IAL[facility],GAB 0 - 0.1 x10E3 [facility] ACCT#[id number], ,,,, CENTER [facility] Specimen Blood specimen (specimen) Performing Organization Address City/State/Zipcode Ph one Number INTERFACE SYSTEM [facility] [place]# [id number] Leonides JEFFERSON [address] [facility] [address] [facility] * COMPREHENSIVE METABOLIC PANEL (01/28/2009 6:51 PM CDT) GLUCOSE 147 (H) 70 - 110 mg/dl [facility] BUN 21.0 (H) 7 - 20 mg/dl [facility] CREATININE 1.20 0.8 - 1.3 mg/dl [facility] BUN/CREAT RATIO 17.5 10 - 20 [facility] GFR 66 >90 ml/min [facility] SODIUM 136 135 - 145 mmol/L [facility] POTASSIUM 4.3 3.3 - 4.8 mmol/L [facility] CHLORIDE 101 98 - 107 mmol/L [facility] CO2 28.2 22 - 31 mmol/L [facility] ANION GAP 11 4 - 20 [facility] CALCIUM 9.2 8.5 - 10.1 mg/dl [facility] ALBUMIN 4.4 3.4 - 5.0 g/dl [facility] TOTAL PROTEIN 7.4 6.4 - 8.2 g/dl [facility] GLOBULIN (CALC) 3.0 [facility] ALBUMIN/GLOBULI 1.5 [facility] N R[facility]IO [facility] BILIRUBIN TOTAL 0.3 <1.1 mg/dl [facility] ALKALINE 63 50 - 136 IU/L [facility] PHOSPHATASE [facility] AST 22 10 - 40 IU/L [facility] ALT 37Comment: GAB JUAN 25 - 70 IU/L [facility] ACCT#[id number], ,,,, CENTER [facility] Specimen Blood specimen (specimen) Performing Organization Address [facility] Ph one Number INTERFACE SYSTEM [facility] CLIA# [id number] Leonides JEFFERSON [address] [facility] [address] [place] [address] * BRAIN NATRIURETIC PEPTIDE, BNP OR PROBNP (01/28/2009 6:51 PM CDT) BRAIN 146 (H)Comment: 0 - 125 pg/ml [facility] NATRIURETIC [facility] PEPTIDE ACCT#[id number], ,,,[facility] Specimen Blood specimen (specimen) Performing Organization Address [facility] Ph one Number INTERFACE SYSTEM [facility] CLIA# [id number] Leonides JEFFERSON [address] [facility] [address] [place] [address] * D-DIMER (01/28/2009 6:51 PM CDT) D-DIMER QUANT Less than 100 0 - 400 ng/mL [facility] Comment: [facility] 90% of patients testing below [facility] 400 ng/ml have proven negative for Thromboembolic Events. [facility]ITAL[facility] ACCT#[id number], ,,,, Specimen Blood specimen (specimen) Performing Organization Address [facility] one Number INTERFACE [facility]# [id number] Leonides JEFFERSON [address] [facility] [address] [facility] * LIPASE (01/28/2009 6:51 PM CDT) Pathologist [facility] LIPASE 296 (H)Comment: 114 - 286 U/L [facility] ACCT#[id number], ,,,, [facility] Specimen Blood specimen (specimen) Performing Organization Address [facility] one Number [facility] CLIA# [id number] Leonides JEFFERSON [address] [facility] [address] [facility] documented in this encounter Visit Diagnoses Not on filedocumented in this encounter
--- OUTSIDE RECORDS SUMMARY | 2020-03-24 14:45 | XMS REPORT | Encounter Summary ---
Author Author [facility] Organization [facility] Address Unknown Phone Unavailable Care Team Providers Care Spanish Medical Interpreter Name Role Phone Shahram Mccallum MD PCP Unavailable Reason for Visit * Auth/Cert Referred By Contact Referred To Contact Status Reason Specialty Diagnoses / Procedures [facility] Ost[facility] [address] [place] [address] Closed Wound Care Encounter Details Care Team Description Date Type Department Shahram Mccallum MD NO ADDRESS ON FILE Janell Marie RN 03/05/2009 [facility] F ort Encounter [facility] [address] [place] [address] Social History Date Tobacco Use [...] 0 mouth daily with lunch. 12/29/2007 10/18/2009 Bkjndlj-Yfzeqiunn-Sgaz Take by mouth 0 Oral Tab 2 times daily. 02/14/2008 08/30/2012 ACCU-CHEK ACTIVE TEST by See Admin 0 Strp Instructions route 2 times daily. In the am & pm prn 02/14/2008 10/30/2009 TOPROL XL PO Take 25 mg by 0 mouth daily. documented as of this encounter Progress Notes * Janell Marie, RN - 03/05/2009 12:10 PM CDT OP WOCN to trim diabetic toenails. No corns or callous noted.Wearing diabetic sh oes with inserts documented in this encounter Plan of Treatment Not on filedocumented as of this encounter Visit Diagnoses Not on filedocumented in this encounter
--- OUTSIDE RECORDS SUMMARY | 2020-03-24 14:46 | XMS REPORT | Encounter Summary ---
Author Author [facility] Organization [facility] Address Unknown Phone Unavailable Care Team Providers Care Malted Milk Masher Name Role Phone Shahram Mccallum MD PCP Unavailable Reason for Visit * Reason Comments Ankle Pain right ankle, fell yesterday Toe Pain great toe on right foot, di scolored (purple) Palpitations patient can feel this, at l east once each day Encounter Details Care Team Description Date Type Department Shahram Mccallum MD NO ADDRESS ON FILE Pain in Ankle Joint (Primary Dx) 01/09/2009 [facility] Visit [facility] [address] [phone] Social History Date Tobacco Use Types Packs/Day [...] Signs Reading Time Taken Comments Vital Sign 108/64 01/09/2009 10:35 AM DENTAL AIDE Blood Pressure 60 01/09/2009 10:35 AM DENTAL AIDE Pulse 36.9 C (98.5 F) 01/09/2009 10:35 AM DENTAL AIDE Temperature - - Respiratory Rate - - Oxygen Saturation - - Inhaled Oxygen Concentration - - Weight - - Height - - Body Mass Index documented in this encounter Progress Notes * Shahram Mccallum MD - 01/09/2009 10:57 AM DENTAL AIDE HISTORY OF PRESENT ILLNESS Oliverio Dalton, a 58 y.o. male. HPI Chief Complaint Patient presents with Ankle Pain right ankle, fell yesterday Toe Pain great toe on right foot, discolored (purple) Palpitations patient can feel this, at least once each day REVIEW OF SYSTEMS Review of Systems Constitutional: Negative. Cardiovascular: Negative. Genitourinary: Negative. Musculoskeletal: Positive for joint pain (pain R ankli and toes post tripped goi ng down stairs.). Neurological: Negative for loss of consciousness. PHYSICAL EXAM BP 108/64 | Pulse 60 | Temp 98.5 F (36.9 C) Physical Exam Pulmonary/Chest: No respiratory distress. He has no rales. Musculoskeletal: He exhibits tenderness (tender and swollen rt lat mallelous. br uised tip of rt great toe). ASSESSMENT and PLAN: Encounter Diagnoses Code Name Primary? Qualifier 719.47B Pain in Ankle Joint Yes Plan: XR ANKLE 3+ VW RIGHT rest ,ice/ WMPs F/u failure to improve. He is now living alone. AL AIDE documented in this encounter Plan of Treatment Not on filedocumented as of this encounter Results * XR ANKLE 3+ VW RIGHT (01/09/2009 11:11 AM DENTAL AIDE) Specimen Impressions Performed At : Soft tissue swelling about the lateral malleolus without acute fracture or subluxation identified. Narrative Performed At RIGHT ANKLE: 3 views. INDICATION: ANKLE PAIN. AP, lateral and oblique views demonstra te marked soft tissue swelling about the lateral malleolus. No acute appearing fracture or subluxation is identified. Ankle mortise appears maintained. Procedure Note Wally Sharpe MD - 01/09/2009 4:18 PM DENTAL AIDE RIGHT ANKLE: 3 views. INDICATION: ANKLE PAIN. AP, lateral and oblique views demonstrate marked soft tissue swelling about the lateral malleolus. No acute appearing fracture or subluxation is identified. Ankle mortise appears maintained. IMPRESSION: Soft tissue swelling about the lateral malleolus without acute fracture or subluxation identified. documented in this encounter Visit Diagnoses Diagnosis Pain in ankle joint - Primary Pain in joint, ankle and foot documented in this encounter"
--- OUTSIDE RECORDS SUMMARY | 2020-03-24 14:46 | XMS REPORT | Encounter Summary ---
Author Author [facility] Organization [facility] Address Unknown Phone Unavailable Care Team Providers Care In Store Marketing Associate Name Role Phone Shahram Mccallum MD PCP Unavailable Reason for Visit * Reason Comments Medication Refill Encounter Details Care Team Description Date Type Department Shahram Mccallum MD NO ADDRESS ON FILE 01/23/2009 Refill [facility] Primar y Care [address] [phone] Social History Date Tobacco Use Types Packs/Day [...]
--- OUTSIDE RECORDS SUMMARY | 2020-03-24 14:46 | XMS REPORT | Encounter Summary ---
Author Author [facility] Organization [facility] Address Unknown Phone Unavailable Care Team Providers Care Corrections Counselor Name Role Phone Shahram Mccallum MD PCP Unavailable Reason for Visit * Reason Comments Medication Refill Encounter Details Care Team Description Date Type Department Shahram Mccallum MD NO ADDRESS ON FILE 01/09/2009 Refill [facility] Primar y Care [address] [phone] Social History Date Tobacco Use Types Packs/Day [...]
--- OUTSIDE RECORDS SUMMARY | 2020-03-24 14:46 | XMS REPORT | Encounter Summary ---
Author Author [facility] Organization [facility] Address Unknown Phone Unavailable Care Team Providers Care Mesh Man Name Role Phone Shahram Mccallum MD PCP Unavailable Reason for Visit * Auth/Cert Referred By Contact Referred To Contact Status Reason Specialty Diagnoses / Procedures [facility] Imaging Services [address] [place] [phone] Closed Radiology Encounter Details Care Team Description Date Type Department Shahram Mccallum MD NO ADDRESS ON FILE 01/09/2009 [facility] Imaging Se rvices Encounter [place] [address] [place] [phone] Social History Date Tobacco Use [...] Drop in both eyes 2 times daily. 01/09/2009 02/13/2009 phenytoin (PHENYTEK) 200 Take 1 Cap by 60 Cap 0 mg Oral Cap mouth 2 times daily. 01/07/2009 12/11/2009 esomeprazole (NEXIUM) 40 Take 1 Cap by 30 Cap 11 mg Oral CpDR mouth daily before a meal. 01/30/2009 NEXIUM 40 mg Oral CpDR Take 40 mg by 0 mouth daily. 12/19/2008 06/26/2009 isosorbide mononitrate Take 1 Tab [...] subcutaneous injection. 20 units at hs. 12/29/2007 01/23/2009 bethanechol (URECHOLINE) Take 25 mg by 0 25 mg Oral Tab mouth 4 times daily. 12/29/2007 07/24/2009 FLOMAX 0.4 mg Oral Cp24 Take 0.4 mg 0 by mouth daily. 30 min. After supper 12/29/2007 08/21/2009 loratadine (CLARITIN) 10 Take 10 mg by 0 mg Oral Tab mouth daily. 12/29/2007 01/30/2009 oxaprozin (DAYPRO) 600 mg Take 600 mg 0 Oral Tab by mouth daily. 12/29/2007 02/13/2009 PLAVIX 75 mg Oral Tab Take 75 mg by 0 mouth daily. 12/29/2007 08/04/2011 TRICOR 145 mg Oral Tab Take 145 mg 0 by mouth daily with supper. 12/29/2007 07/12/2012 ZETIA 10 mg Oral Tab Take 10 mg by 0 mouth daily at bedtime. 09/10/2010 04/26/2018 MULTIVITAMIN PO Take 1 Tab by 0 mouth daily with lunch. 12/29/2007 10/18/2009 Uiukalj-Gnqxikewb-Ovvo Take by mouth 0 Oral Tab 2 times daily. 12/29/2007 01/23/2009 simvastatin (ZOCOR) 80 mg Take 80 mg by 0 Oral Tab mouth daily at bedtime. 02/14/2008 08/30/2012 ACCU-CHEK ACTIVE TEST by See Admin 0 Strp Instructions route 2 times daily. In the am & pm prn 02/14/2008 10/30/2009 TOPROL XL PO Take 25 mg by 0 mouth daily. documented as of this encounter Plan of Treatment Not on filedocumented as of this encounter Procedures Comments Procedure Name Priority Date/Time Associated Diag nosis XR ANKLE 3+ VW RIGHT Routine 01/09/2009 Pain in A nkle Joint 11:11 AM ASSOCIATE DIRECTOR documented in this encounter Results * XR ANKLE 3+ VW RIGHT (01/09/2009 11:11 AM ASSOCIATE DIRECTOR) Specimen Impressions Performed At : Soft tissue [...] Wally Sharpe MD - 01/09/2009 4:18 PM ASSOCIATE DIRECTOR RIGHT ANKLE: 3 views. INDICATION: ANKLE PAIN. AP, lateral and oblique views demonstrate marked soft tissue swelling about the lateral malleolus. No acute appearing fracture or subluxation is identified. Ankle mortise appears maintained. IMPRESSION: Soft tissue swelling about the lateral malleolus without acute fracture or subluxation identified. documented in this encounter Visit Diagnoses Diagnosis Pain in ankle joint Pain in joint, ankle and foot documented in this encounter
--- OUTSIDE RECORDS SUMMARY | 2020-03-24 14:46 | XMS REPORT | Encounter Summary ---
Author Author [facility] Organization [facility] Address Unknown Phone Unavailable Care Team Providers Care Manager Lighting Name Role Phone Shahram Mccallum MD PCP Unavailable Encounter Details Care Team Description Date Type Department Jamey Pena MD [address] [place] [address] [facility], Lab Schedule 01/24/2009 [facility] General Encounter Laboratory Services [address] [phone] Social History Date Tobacco Use [...] Drop in both eyes 2 times daily. 01/23/2009 08/04/2011 simvastatin (ZOCOR) [...] 0 mouth daily with lunch. 12/29/2007 10/18/2009 Cxtdkfp-Xbgxbmljf-Jsen Take by mouth 0 Oral Tab 2 times daily. 02/14/2008 08/30/2012 ACCU-CHEK ACTIVE TEST by See Admin 0 Strp Instructions route 2 times daily. In the am & pm prn 02/14/2008 10/30/2009 TOPROL XL PO Take 25 mg by 0 mouth daily. documented as of this encounter Miscellaneous Notes * Scanned Form - Aok Scanning, Amb Physician - 01/28/2009 9:03 AM CDT documented in this encounter Plan of Treatment Not on filedocumented as of this encounter Procedures Comments Procedure Name Priority Date/Time Associated Diag nosis PSA Routine 01/24/2009 BPH 9:40 AM CDT BASIC METABOLIC PANEL Routine 01/24/2009 BPH 9:40 AM CDT documented in this encounter Results * PSA (01/24/2009 9:40 AM CDT) PSA 0.6 < OR = 4.0 ng/mL [facility] Comment: [facility] THIS TEST WAS PERFORMED USING [facility] [employer] SIEMENS (Abazab) CHEMILUMINESCENT METHOD. VALUES OBTAINED FROM DIFFERENT ASSAY METHODS CANNOT BE USED INTERCHANGEABLY. PSA LEVELS, REGARDLESS OF VALUE, SHOULD NOT BE INTERPRETED ABSOLUTE EVIDENCE OF THE PRESENCE OR ABSENCE OF DISEASE. Test performed [facility] [facility] [address] [place] [address] [employer], ,,,, Specimen Blood specimen (specimen) Performing Organization Address City/State/Zipcode Ph one Number [facility]# [id number] [place] [address] [facility] [address] [facility] * BASIC METABOLIC PANEL (01/24/2009 9:40 AM CDT) GLUCOSE 118 (H) 70 - 110 mg/dl [facility] BUN 22.0 (H) 7 - 20 mg/dl [facility] CREATININE 0.90 0.8 - 1.3 mg/dl [facility] BUN/CREAT RATIO 24.4 (H) 10 - 20 [facility] GFR 92 >90 ml/min [facility] SODIUM 131 (L) 135 - 145 mmol/L [facility] POTASSIUM 4.1 3.3 - 4.8 mmol/L [facility] CHLORIDE 97 (L) 98 - 107 mmol/L [facility] CO2 27.8 22 - 31 mmol/L [facility] ANION GAP 10 4 - 20 [facility] CALCIUM 9.1Comment: [facility]NN 8.5 - 10.1 mg/dl [facility] ACCT#[id number], ,,,, [facility] Specimen Blood specimen (specimen) Performing Organization Address City/State/Zipcode Ph one Number [facility]# [id number] [place] [address] [facility] [address] [facility] documented in this encounter Visit Diagnoses Diagnosis BPH Hypertrophy of prostate without urinary obstruction and other lower urinary tract symptoms (LUTS) documented in this encounter
--- OUTSIDE RECORDS SUMMARY | 2020-03-24 14:46 | XMS REPORT | Encounter Summary ---
Author Author [facility] Organization [facility] Address Unknown Phone Unavailable Care Team Providers Care Treatment Specialist Name Role Phone Shahram Mccallum MD PCP Unavailable Reason for Visit * Reason Comments Medication Question Dr Fajardo recommend someth ing more for depression Encounter Details Care Team Description Date Type Department Rosalinda Bal Medication Question (Dr Fajardo recommen d something more for depression) 01/28/2009 Telephone [facility] Primar y Care [address] [phone] Social History Date Tobacco [...] * Telephone Encounter - Rosalinda Bal - 01/28/2009 4:[address] Mccallum instructed patient to ncrease Prozac to 40mg daily. documented in this encounter Plan of Treatment Not on filedocumented as of this encounter Visit Diagnoses Not on filedocumented in this encounter
--- OUTSIDE RECORDS SUMMARY | 2020-03-24 14:46 | XMS REPORT | Encounter Summary ---
Author Author [facility] Organization [facility] Address Unknown Phone Unavailable Care Team Providers Care Wildlife Protector Name Role Phone Shahram Mccallum MD PCP Unavailable Reason for Visit * Reason Comments Medication Question omeprazole not controlling sx, insurance will not cover Protonix he had been on Encounter Details Care Team Description Date Type Department Rosalinda Bal Medication Question (omeprazole not cont rolling sx, insurance will not cover Protonix he had been on) 01/07/2009 Telephone [facility] Primar y Care [place] [address] [place] [phone] Social History Date Tobacco Use Types Packs/Day [...] * Telephone Encounter - Rosalinda Bal - 01/07/2009 11:52 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
--- OUTSIDE RECORDS SUMMARY | 2020-03-24 14:46 | XMS REPORT | Encounter Summary ---
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 Shortness of Breath Nausea * Auth/Cert Referred By Contact Referred To Contact Status Reason Specialty Diagnoses / Procedures [facility] [address] [place] [address] Closed Inpatient Encounter Details Care Team Description Date Type Department Danii Reynolds MD NO ADDRESS ON FILE Shahram Mccallum MD NO ADDRESS ON FILE Junior Beal MD [address] [place] [id number] Mary Zhou MD NO ADDRESS ON FILE Aries Fraser MD [address] [place] [phone] 01/28/2009 [facility] F ort - Encounter [facility] 02/01/[address] [place] [phone] Social History Date Tobacco Use Types [...] Beal MD - 02/01/2009 9:26 AM CDT [facility]. [address] [place] [address] DISCHARGE SUMMARY Patient: OLIVERIO TINSLEY Location: [facility] Room#: IS024-6 Unit#: [id number] Attending Physician: Unknown Admitted: 01/28/09 Discharged: For the acute H P please see the dictated History and Physical from Dr. Mccallum which is back on the . HOSPITAL COURSE: The patient was admitted as presumptive rule out. He ruled out for HI with serial EKGs and enzymes. However, he [...] Pancreatitis. Chest pain. Again, ruled out for HI. Known histo ry of underlying coronary artery disease, hypertension as well as previous diabe mann and seizure disorder. DISCHARGE INSTRUCTIONS DISPOSITION: Tentatively Enzo will go home post colon oscopy. He will follow up with Dr. Mccallum in five days. Diet, cardiac. Activity as tolerated. He will obviously also continue to follow a 1999 ADA diet as well. Tentatively at this [...] um, zinc, magnesium tablets two times daily, R[place] nasal spray, Accu-Cheks, Topr ol XL 25 [...] 02/01/09 TD 02/01/09 0926/HGD DISCHARGE SUMMARY # [id number] * Mary Zhou MD - 02/01/2009 9:16 [...] Or every 4 hours as n eeded Oxbvenz-Dwamhksyy-Cabf Oral Tab Take by mouth 2 times [...] daily. Or every 4 hours as needed Dblqmkx-Uzvfnxmol-Fpmj Oral Tab Take by mouth 2 times [...] as previously ordered prior to your hospitalization ([facility] notified) 1. Call office, , for [...] treatment has been planned according to the vt st current medical practices available, unavoidable complications [...] is severe or gets worse throughout day. [facility] Patient Information 2007 [employer] ([employer]). * Attachments The following attachments cannot be [...] 0 mouth daily with lunch. 12/29/2007 10/18/2009 Lzjsimf-Xcbeymfou-Djum Take by mouth 0 Oral Tab 2 times daily. 02/14/2008 08/30/2012 ACCU-CHEK ACTIVE TEST by See Admin 0 Strp Instructions route 2 times daily. In the am & pm prn 02/14/2008 10/30/2009 TOPROL XL PO Take 25 mg by 0 mouth daily. documented as of this encounter Progress Notes * Fara Sommer RN - 02/01/2009 12:57 PM CDT Patient discharged to home at 1257 on 02/01/2009, per physician's orders. Pt to have home care follow up; [facility] notified. All belongings returned to the [...] 10 mg at 01/31/09 0619 influen Tr-Split 2007 Vac (PF) 45 mcg/0.5 mL injection 45 mcg 0.5 mL IM ONCE Shahram Mccallum MD Last Dose: 45 mcg at 01/30/091710 DISCONTD: OTHER MEDICATION CONSULT TO PHARMACY 1 Each See Admin Instructions See Admin Notes Shahram Mccallum MD fluoxetine (PROZAC) capsule 20 mg 20 mg Oral Daily Danii Reynolds MD Last Dose: 20 mg at 01/31/09 0849 sodium chloride 0.9 % flush injection 3 mL 3 mL IV See Admin Notes Danii guerra MD Last Dose: 3 mL at 01/31/09 06 cetirizine (ZYRTEC) tablet 10 mg 10 mg [...] 01/31/09 0853 fluticasone (FLONASE) nasal spray 2 [place] 2 [place] Both Nostrils Daily Danii Reynolds MD Last Dose: 2 [place] at 01/31/09 0852 isosorbide mononitrate (IMDUR) tablet 60 mg 60 mg Oral BID Karean Harman Last Dose: 60 mg at 01/31/09 0849 simvastatin (ZOCOR) tablet 80 mg 80 mg [...] tablet 75 mg 75 mg Oral Daily aDnii Reynolds MD Last Dose: 75 mg at [...] at 01/31/09943 Last data filed at 01/31/09 040 Gross per 24 hour Intake 2830 ml [...] Final BASOPHILS ABSOLUTE (x10E3) 01/29/2009 0.01 0-0.1FinalGLUCOSE (mg/dl)01/07 70-110FinalBUN (mg/dl)01/29/200924.0*7-20FinalCREATININE (mg/dl)0 01/29/20091.10 0.8-1.3FinalBUN/CREAT RATIO 01/29/200921.8*10-20FinalGFR [...] (ml/min)01/30/200992 -FinalSODIUM (mmol/L)01/30135 135-145FinalPOTASSIUM (mmol/L)01/30/20093.6 3.3-4.8FinalCHLORIDE (mmol/L)01/30/2009104 98-225WvtdhVQ5 (mmol/L)01/30/200927.2 22-31FinalANIO N GAP 01/30/20097 4-20FinalCALCIUM (mg/dl)01/30/20098.5 [...] / Blayne Telles, PHARMACIST * Keshia Howell V. RN - 01/30/2009 10:10 AM CDT 1010 [...] AM CDT Pt to radiology via wheelchair, cardiac monitor on. 02 per order. Pt accompani [...] Mccallum MD - 01/29/2009 9:57 AM CDT [facility]. [address] [place] [id number] HISTORY AND PHYSICAL Patient: OLIVERIO TINSLEY Location: [facility] Room#: [id number] Unit#: [id number] Attending Physician: Unknown Admitted: 01/28/09 Service Date: [...] some stress. The woman who lived in [facility] for sometime recently moved out. He has [...] TD 01/29/09 0957/CECILY HISTORY AND PHYSICAL # [id number] documented in this encounter Procedure Notes * Aok Scanning, [facility] Physician - 02/05/2009 10:41 AM CDT Associated Order(s): EKG 12-LEAD; EKG 12-LEAD * Aok Scanning, [facility] Physician - 02/04/2009 1:51 PM CDT Associated Order(s): PROCEDURE PHOTOGRAPHS; PROCEDURE PHOTOGRAPHS * Aok Scanning, [facility] Physician - 02/04/2009 1:11 PM CDT Associated Order(s): TELEMETRY REPORT; TELEMETRY REPORT * David Ferrer MD - 01/29/2009 10:51 AM CDT Associated Order(s): ECG REPORT; ECG REPORT [facility]. [address] [place] [address] EKG OLIVERIO TINSLEY EF113 [id number] 01/28/09 at 1850. The rhythm is regular, [...] DD 01/29/09 TD 01/29/09/LRG EKG REPORT # [id number] ORDER # * Henryaldair Johnnie Chaves Physician - 01/29/2009 10:31 AM CDT Associated [...] MD Last Dose: 20 mg at 01/30/09 0931 sodium chloride 0.9 % flush injection 3 mL 3 mL IV See Admin Notes Danii guerra MD Last Dose: 3 mL at 01/29/092 cetirizine (ZYRTEC) tablet 10 mg 10 mg [...] MD Last D ose: 10 mg at 01/30/09930 bethanechol (URECHOLINE) tablet 25 mg 25 mg Oral QID Danii Reynolds MD [place] st Dose: 25 mg at 01/30/09899 timolol (TIMOPTIC) 0.5 % ophthalmic solution 1 Drop 1 Drop Both Eyes BID Edy Reynolds MD Last Dose: 1 Drop at 01/30/09937 fluticasone (FLONASE) nasal spray 2 [place] 2 [place] Both Nostrils Daily Danii Reynolds MD Last Dose: 2 [place] at 01/30/09937 isosorbide mononitrate (IMDUR) tablet 60 [...] Reynolds MD Last Dose: 145 mg at 01/29/09 174 ezetimibe (ZETIA) tablet 10 mg 10 mg [...] Last Dose: 75 mg at 01/29/09 1527 DISCONTD: sodium chloride 0.9 % infusion IV [...] Lab Results Component Value Date/Time LIPASE 215 01/30/09 4:01 AM Radiologic Studies: CT ABDOMEN WITH [...] encounter OR Notes * OR Anesthesia - Johnnie Duque Physician - 02/04/2009 2:32 PM CDT documented [...] Drop in both eyes 2 times daily. Vojrebu-Nrsakkfdx-Sviq Oral Tab Take by mouth 2 times [...] Notes * Scanned Form - Aok Scanning, [facility] Physician - 02/06/2009 10:49 AM CDT * Scanned Form - Aok Scanning, [facility] Physician - 02/04/2009 2:32 PM CDT * Scanned Form - Aok Scanning, [facility] Physician - 02/04/2009 2:32 PM CDT * Scanned Form - Aok Scanning, [facility] Physician - 02/04/2009 2:32 PM CDT * [...] Pt to have home care follow up; [facility] notified. Goal: Prevent/manage acute pain Refer to Clinical Practice Guideline Outcome: Completed Date Met: 02/01/09 Goal met. Pt denied pain/discomfort prior to his discharge to home. Patient discharged to home at 1257 on 02/01/2009, per physician's orders. Pt to have home care follow up; [facility] notified. Goal: Prevent/manage cardiovascular structural defects Refer to Clinical Practice Guideline Outcome: Completed Date Met: 02/01/09 Goal met. Patient discharged to home at 1257 on 02/01/2009, per physician's orders. Pt to have home care follow up; [facility] notified. Goal: Prevent/manage ischemia --> infarction Refer to Clinical Practice Guideline Outcome: Completed Date Met: 02/01/09 Goal met. No signs or symptoms of ischemia/infarction noted prior to the patient's dismiss al to home. Patient discharged to home at 1257 on 02/01/2009, per physician's orders. Pt to have home care follow up; [facility] notified. Problem: Pancreatitis, Acute/Chronic (Adult, OB) [...] Pt to have home care follow up; [facility] notified. Goal: Prevent/manage acute pain Refer to Clinical Practice Guideline Outcome: Completed Date Met: 02/01/09 Goal met. Pt denied pain/discomfort prior to his dismissal to home. Patient discharged to home at 1257 on 02/01/2009, per physician's orders. Pt to have home care follow up; [facility] notified. Goal: Prevent/manage fluid imbalance Refer to Clinical Practice Guideline Outcome: Completed Date Met: 02/01/09 Goal met. No signs or symptoms of fluid imbalance noted prior to the patient's dismissal. Pt was tolerating PO fluids and voiding without difficulty. PO fluid intake enco uraged. Patient discharged to home at 1257 on 02/01/2009, per physician's orders. Pt to have home care follow up; [facility] notified. Goal: Prevent/manage gastrointestinal complications Refer [...] Pt to have home care follow up; [facility] notified. Goal: Prevent/manage metabolic imbalances Refer to Clinical Practice Guideline Outcome: Completed Date Met: 02/01/09 Goal met. No signs or symptoms of metabolic imbalance noted prior to the patient's dismiss al to home. Patient discharged to home at 1257 on 02/01/2009, per physician's orders. Pt to have home care follow up; [facility] notified. * OR Post-Procedure Note - [...] Las t Dose: 200 mg at 01/31/09 2033 FENtanyl PF (SUBLIMAZE) 50 mcg/mL injection 25 [...] MD Last Dose: 2 Puff at 01/31/09 2030 pioglitazone (ACTOS) tablet 30 mg 30 mg [...] at 01/31/092029 fluticasone (FLONASE) nasal spray 2 [place] 2 [place] Both Nostrils Daily Danii Reynolds MD Last Dose: 2 [place] at 01/31/09 0852 isosorbide mononitrate (IMDUR) tablet [...] free. * Scanned Form - Aok Scanning, [facility] Physician - 01/30/2009 10:36 AM CDT * Scanned Form - Aok Scanning, [facility] Physician - 01/29/2009 11:37 AM CDT * [...] 1:18 PM CDT) SURGICAL Name: OLIVERIO TINSLEY SHIAROMI Gloria PATHOLOGY : PATHOLOGY 49 [facility] [place] Unit#: [id number] Room/Bed: [place] [address] Att: U Unknown RECD: 02/01/09 PROCEDURE DATE: 02/01/[address]: Mary Zhou M.D. [facility] DR: ICD CODES: 211.3 PROCEDURES: [id number] LOCATION: [facility] MATERIAL SUBMITTED A) Biopsy of appendiceal orifice. B) Biopsy of ileocecal valve. C) Biopsy of polyp at 30 cm. CLINICAL HISTORY: Polyp 30 cm, rare diverticulosis sigmoid, internal hemorrhoids. Procedure: Colonoscopy. Technical component performed at [facility], [address] [place] [address]. GROSS DESCRIPTION A) In formalin labeled appendiceal orifice biopsy is a cylindrical piece of echeverria to brown tissue which is 0.6 cm long and 0.1 cm in diameter. 1/1/NG. B) In formalin labeled ileocecal valve biopsy are two fragments of soft echeverria tissue measuring up to 0.1 cm in greatest dimension. 2/1/NG. C) In formalin labeled 30 cm polyp biopsy are two fragments of echeverria tissue measuring up to 0.3 cm in greatest dimension. 2//NG. Dictated by:Hardik Dixon,HKarlos GKarlos TD:02/01/09 - 6883 FSILRNE MICROSCOPIC DESCRIPTION A) Sections reveal benign colonic [...] appearance. Invasive neoplasm is not recognized. Dictated by:Joana Dixon,S. VKarlos TD:02/04/09 - 1041 FSMDRLRG FINAL DIAGNOSIS A) Biopsy of appendiceal orifice: Benign colonic mucosa with mild active colitis. B) Biopsy, ileocecal valve: Benign colonic mucosa. C) Biopsy polyp at 30 cm: Tubular adenoma. Dictated by: Joana Dixon,S. V. TD:02/04/09 - 1042 FSMDRLRG Signed (electronic signature) David Bernard M.D. 02/04/09 1435 END OF REPORT Comment: , ,,,, Specimen Specimen of unknown material (specimen) Performing Organization Address [facility] Ph one Number INTERFACE [facility] CLIA# [id number] [place] [address] [facility] [address] * POC GLUCOSE (02/01/2009 10:59 AM CDT) POC GLUCOSE 206 (H)Comment: [facility] 70 - 110 mg/dl [facility] Sc, Point of Care CENTER [facility],,,, [facility] Specimen Capillary blood specimen (specimen) Performing Organization Address [facility] Ph one Number INTERFACE SYSTEM [facility] CLIA# [id number] [place] [address] [facility] [address] [facility] * BASIC METABOLIC PANEL (02/01/2009 4:30 AM CDT) Pathologist [facility] GLUCOSE 125 (H) 70 - 110 mg/dl [facility] BUN 11.0 7 - 20 mg/dl [facility] CREATININE 0.80 0.8 - 1.3 mg/dl [facility] BUN/CREAT RATIO 13.8 10 - 20 [facility] GFR 105 >90 ml/min [facility] SODIUM 135 135 - 145 mmol/L [facility] POTASSIUM 3.5 3.3 - 4.8 mmol/L [facility] [place] [facility] CHLORIDE 103 98 - 107 mmol/L [facility] CO2 23.9 22 - 31 mmol/L [facility] ANION GAP 12 4 - 20 [facility] CALCIUM 9.2Comment: [facility] [place] 8.5 - 10.1 mg/dl [facility] ACCT#[id number], ,,,, CENTER [place] [facility] Specimen Blood specimen (specimen) Performing Organization Address City/[facility] Ph one Number INTERFACE [facility] CLIA# [id number] [place] [address] [facility] [address] [facility] * CBC WITH DIFFERENTIAL (02/01/2009 4:30 AM CDT) WBC 5.05 3.0 - 10.4 x10E3 [facility] [place] [facility] RBC 4.31 4.15 - 5.75 x10E6 [facility] [place] [facility] HEMOGLOBIN 13.1 (L) 13.8 - 17.4 g/dL [facility] [place] [facility] HEMATOCRIT 36.0 (L) 38.6 - 49.4 % [facility] [place] [facility] MCV 83.6 79 - 100 fL [facility] [place] [facility] MCH 30.3 28 - 34 pg [facility] [place] [facility] MCHC 36.3 (H) 33 - 36 g/dL [facility] [place] [facility] RDW 13.7 12.1 - 14.1 % [facility] [place] [facility] PLATELETS 277 148 - 408 x10E3 [facility] [place] [facility] MPV 8.2 7.4 - 10.6 fL [facility] [place] [facility] NEUTROPHILS 67.7 43 - 73 % [facility] [place] [facility] LYMPHOCYTES 21.3 19 - 47 % [facility] [place] [facility] MONOCYTES 8.3 3 - 9 % [facility] [place] [facility] EOSINOPHILS 2.4 0 - 6 % [facility] [place] [facility] BASOPHILS 0.2 0 - 1.2 % [facility] [place] [facility] NEUTROPHIL 3.42 1.3 - 7.6 x10E3 [facility] [place] [facility] LYMPHOCYTE 1.08 0.6 - 4.9 x10E3 [facility] MONOCYTE 0.42 0.1 - 0.9 x10E3 [facility] LAB EOSINOPHIL 0.12 0.0 - 0.2 x10E3 [facility] [place] [facility] BASOPHILS 0.01Comment: [facility] 0 - 0.1 x10E3 [facility] ACCT#[id number], ,,,, CENTER [place] [facility] Specimen Blood specimen (specimen) Performing Organization Address City/State/Zipcode Ph one Number [facility] [place]# [id number] [place] [address] [facility] [address] [facility] * LIPASE (01/30/2009 4:01 AM CDT) Pathologist [facility] LIPASE 215Comment: MARIUSZ JUAN 114 - 286 U/L [facility] ACCT#[id number], ,,,, CENTER [place] [facility] Specimen Blood specimen (specimen) Performing Organization Address [facility] HomeIA# [id number] [place] [address] [facility] [address] [facility] * BASIC METABOLIC PANEL (01/30/2009 4:01 AM CDT) [facility] GLUCOSE 120 (H) 70 - 110 mg/dl [facility] [place] [facility] BUN 13.0 7 - 20 mg/dl [facility] CREATININE 0.90 0.8 - 1.3 mg/dl [facility] BUN/CREAT RATIO 14.4 10 - 20 [facility] [place] [facility] GFR 92 >90 ml/min [facility] SODIUM 135 135 - 145 mmol/L [facility] POTASSIUM 3.6 3.3 - 4.8 mmol/L [facility] CHLORIDE 104 98 - 107 mmol/L [facility] CO2 27.2 22 - 31 mmol/L [facility] ANION GAP 7 4 - 20 [facility] CALCIUM 8.5Comment: MARIUSZ JUAN 8.5 - 10.1 mg/dl [facility] ACCT#[id number], ,,,, CENTER [place] [facility] Specimen Blood specimen (specimen) Performing Organization Address [facility] IA# [id number] [place] [address] [facility] [address] [facility] * CBC WITH DIFFERENTIAL (01/30/2009 4:01 AM CDT) Pathologist [facility] WBC 4.14 3.0 - 10.4 x10E3 [facility] RBC 3.86 (L) 4.15 - 5.75 x10E6 [facility] HEMOGLOBIN 11.7 (L) 13.8 - 17.4 g/dL [facility] [place] [facility] HEMATOCRIT 32.4 (L) 38.6 - 49.4 % [facility] [place] [facility] MCV 83.9 79 - 100 fL [facility] [place] [facility] MCH 30.4 28 - 34 pg [facility] [place] [facility] MCHC 36.2 (H) 33 - 36 g/dL [facility] [place] [facility] RDW 13.7 12.1 - 14.1 % [facility] [place] [facility] PLATELETS 244 148 - 408 x10E3 [facility] [place] [facility] MPV 8.3 7.4 - 10.6 fL [facility] [place] [facility] NEUTROPHILS 60.6 43 - 73 % [facility] [place] [facility] LYMPHOCYTES 29.4 19 - 47 % [facility] [place] [facility] MONOCYTES 6.8 3 - 9 % [facility] [place] [facility] EOSINOPHILS 3.0 0 - 6 % [facility] [place] [facility] BASOPHILS 0.1 0 - 1.2 % [facility] [place] [facility] NEUTROPHIL 2.51 1.3 - 7.6 x10E3 [facility] [place] [facility] LYMPHOCYTE 1.22 0.6 - 4.9 x10E3 [facility] [place] [facility] MONOCYTE 0.28 0.1 - 0.9 x10E3 [facility] LAB EOSINOPHIL 0.13 0.0 - 0.2 x10E3 [facility] [place] [facility] BASOPHILS 0.00Comment: [facility] 0 - 0.1 x10E3 [facility] ACCT#[id number], ,,,, CENTER [place] [facility] Specimen Blood specimen (specimen) Performing Organization Address City/State/Zipcode Ph one Number [facility]# [id number] [place] [address] [facility] [address] [facility] * CT ABDOMEN PELVIS W CONTRAST [...] PELVIS Post contrast images were obtained thro h the pelvis following administration of IV and [...] Bernard MD - 01/29/2009 10:51 AM CDT [facility]. [address] [place] [address] EKG OLIVERIO TINSLEY [id number] 01/28/09 at 1850. The rhythm is regular, [...] DD 01/29/09 TD 01/29/09/LRG EKG REPORT # [id number] ORDER # * TELEMETRY REPORT (01/29/2009 10:38 AM CDT) Narrative Performed At This result has an attachment that is n ot available. Procedure Note 01/29/2009 10:31 AM CDT * COMPREHENSIVE METABOLIC PANEL (01/29/2009 6:15 AM CDT) Pathologist [facility] GLUCOSE 98 70 - 110 mg/dl [facility] BUN 24.0 (H) 7 - 20 mg/dl [facility] CREATININE 1.10 0.8 - 1.3 mg/dl [facility] BUN/CREAT RATIO 21.8 (H) 10 - 20 [facility] GFR 73 >90 ml/min [facility] SODIUM 140 135 - 145 mmol/L [facility] POTASSIUM 4.1 3.3 - 4.8 mmol/L [facility] CHLORIDE 104 98 - 107 mmol/L [facility] CO2 25.6 22 - 31 mmol/L [facility] ANION GAP 15 4 - 20 [facility] CALCIUM 8.4 (L) 8.5 - 10.1 mg/dl [facility] ALBUMIN 3.7 3.4 - 5.0 g/dl [facility] TOTAL PROTEIN 6.5 6.4 - 8.2 g/dl [facility] GLOBULIN (CALC) 2.8 [facility] LAB ALBUMIN/GLOBULI 1.3 [facility] LAB BILIRUBIN TOTAL 0.4 <1.1 mg/dl [facility] ALKALINE 65 50 - 136 IU/L [facility] AST 217 (H) 10 - 40 IU/L [facility] ALT 103 (H)Comment: 25 - 70 IU/L [facility]#[id number], ,,,, [facility] Specimen Blood specimen (specimen) Performing Organization Address City/State/Zipcode Ph one Number INTERFACE SYSTEM [facility] CLIA# [id number] [place] [address] [facility] [address] [facility] * CBC WITH DIFFERENTIAL (01/29/2009 6:15 AM CDT) WBC 5.04 3.0 - 10.4 x10E3 [facility] RBC 4.04 (L) 4.15 - 5.75 x10E6 [facility] HEMOGLOBIN 12.4 (L) 13.8 - 17.4 g/dL [facility] HEMATOCRIT 33.7 (L) 38.6 - 49.4 % [facility] [place] [facility] MCV 83.4 79 - 100 fL [facility] [place] [facility] MCH 30.7 28 - 34 pg [facility] [place] [facility] MCHC 36.7 (H) 33 - 36 g/dL [facility] [place] [facility] RDW 13.7 12.1 - 14.1 % [facility] [place] [facility] PLATELETS 268 148 - 408 x10E3 [facility] [place] [facility] MPV 7.5 7.4 - 10.6 fL [facility] [place] [facility] NEUTROPHILS 57.3 43 - 73 % [facility] [place] [facility] LYMPHOCYTES 32.2 19 - 47 % [facility] [place] [facility] MONOCYTES 7.7 3 - 9 % [facility] [place] [facility] EOSINOPHILS 2.7 0 - 6 % [facility] [place] [facility] BASOPHILS 0.1 0 - 1.2 % [facility] [place] [facility] NEUTROPHIL 2.88 1.3 - 7.6 x10E3 [facility] [place] [facility] LYMPHOCYTE 1.63 0.6 - 4.9 x10E3 [facility] [place] [facility] MONOCYTE 0.39 0.1 - 0.9 x10E3 [facility] [place] [facility] EOSINOPHIL 0.14 0.0 - 0.2 x10E3 [facility] [place] [facility] BASOPHILS 0.01Comment: [facility]ALION HOSPITALFAYEAK 0 - 0.1 x10E3 [facility] ABSOLUTE ACCT#[id number], ,,,, CENTER [facility] Specimen Blood specimen (specimen) Performing Organization Address City/[facility] Ph one Number INTERFACE SYSTEM [facility] CLIA# [id number] Aldair JEFFERSON [address] [facility] [address] [facility] * LIPASE (01/29/2009 6:15 AM CDT) LIPASE 188Comment: [facility]OSPITALSANJEEV,AK 114 - 286 U/L [facility] ACCT#[id number], ,,,, [facility] Specimen Blood specimen (specimen) Performing Organization Address City/[facility] Ph one Number INTERFACE SYSTEM [facility]OSPITALIA# [id number] Aldair JEFFERSON S [address] [facility] [address] [place] [address] * TROPONIN (01/29/2009 6:15 AM CDT) Pathologist [facility] TROPONIN I 0.04Comment: [facility]OD[facility]Z CAMACHO 0 - 0.4 ng/ml [facility] ACCT#[id number], ,,,, [facility] Specimen Performing Organization Address [facility] one Number INTERFACE [facility] SERVICESIA# [id number] [facility] Aldair RUGGIERO S [address] [facility] [address] [place] [address] * CARDIAC ENZYMES (01/29/2009 6:15 AM CDT) [facility] INTERPRETATION See below. [facility] Comment: [facility] INTERPRETATION - 01/29/09 0755 [facility] Normal cardiac marker series, no evidence of acute myocardial infarction. Linda Elise. [facility]ALSANJEEVAK ACCT#[id number], ,,,, Specimen Blood specimen (specimen) Performing Organization Address [facility] one [facility] HospitalIA# [id number] [facility] Aldair S [address] [facility] [address] [place] [address] * TROPONIN (01/29/2009 1:00 AM CDT) [facility] TROPONIN I LESS THAN 0.04Comment: 0 - 0.4 ng/ml [facility] HOSPITALTirsoFORMERLY [facility] HOSPITALFAYEMERCYONE [facility] ACCT#[id number], ,,,, [facility] Specimen Performing Organization Address [facility] one Number [facility] SYSTEMIA# [id number] Aldair JEFFERSON S [address] [facility] [address] [place] [address] * TROPONIN (01/28/2009 10:10 PM CDT) [facility] TROPONIN I LESS THAN 0.04Comment: 0 - 0.4 ng/ml [facility] HOSPITALFAYEMERCYONE [facility] ACCT#[id number], ,,,, [facility] Specimen Performing Organization Address [facility] Ph one Number INTERFACE [facility] SERVICESIA# [id number] PA Aldair RUGGIERO S [address] [facility] [address] [place] [address] * MYOGLOBIN (01/28/2009 10:10 PM CDT) MYOGLOBIN, 35Comment: MERCEDESMARIUSZ LYNN 16 - 97 ng/ml [facility] PLASMA ACCT#[id number], ,,,, CENTER [facility] Specimen Performing Organization Address [facility] Ph one Number INTERFACE SYSTEM [facility] CLIA# [id number] Aldair JEFFERSON S [address] [facility] [address] [place] [address] * POC GLUCOSE (01/28/2009 7:17 PM CDT) POC GLUCOSE 130 (H)Comment: [facility] 70 - 110 mg/dl [facility] Mariusz Ruggiero, Point of Care CENTER [facility],,,, [facility] Specimen Capillary blood specimen (specimen) Performing Organization Address [facility] Ph one Number INTERFACE SYSTEM [facility] CLIA# [id number] Aldair JEFFERSON [address] [facility] [address] [place] [address] * XR CHEST PA OR AP (01/28/2009 7:10 PM CDT) Specimen Impressions Performed At : Pulmonary vascular congestion with smal l left pleural effusion. Narrative Performed At PORTABLE CHEST Indication: Chest pain. Comparison is made with November 28. Postoperative change of previous midlin e sternotomy [...] TOTAL 21.9 (H)Comment: 10 - 20 ug/ml [facility]ITALMARIUSZ LYNN [facility] ACCT#[id number], ,,,, [facility] Specimen Blood specimen (specimen) Performing Organization Address [facility] Ph one Number INTERFACE [facility] CLIA# [id number] Aldair JEFFERSON [address] [facility] [address] [place] [address] * TROPONIN (01/28/2009 6:51 PM CDT) Pathologist [facility] TROPONIN I LESS THAN 0.04Comment: 0 - 0.4 ng/ml [facility] HOSPITALMARIUSZ RUGGIERO [facility] ACCT#[id number], ,,,, [facility] Specimen Performing Organization Address [facility] Ph one Number INTERFACE [facility] CLIA# [id number] Aldair JEFFERSON [address] [facility] [address] [place] [address] * MYOGLOBIN (01/28/2009 6:51 PM CDT) Pathologist [facility] MYOGLOBIN, 36Comment: [facility] GALION HOSPITALFAYEMARIUSZ 16 - 97 ng/ml [facility] ACCT#[id number], ,,,, [place] [facility] Specimen Performing Organization Address [facility] Ph one Number INTERFACE [facility] CLIA# [id number] Aldair JEFFERSON [address] [facility] [address] [place] [address] * PROTIME-INR (01/28/2009 6:51 PM CDT) [facility] PROTIME 11.3 9.5 - 11.5 Sec [facility] PA [facility] INR 1.08 (L)Comment: 2.0 - 3.0 FORMERLY NAMED [facility] CENTERMARIUSZ RUGGIERO [facility] ACCT#[id number], ,,,, [facility] Specimen Blood specimen (specimen) Performing Organization Address [facility] one Number [facility] CLIA# [id number] Aldair JEFFERSON [address] [facility] [address] [place] [address] * MAGNESIUM LEVEL (01/28/2009 6:51 PM CDT) MAGNESIUM 1.8Comment: [facility] GALION HOSPITALFAYEMARIUSZ 1.8 - 2.4 mg/dl [facility] ACCT#[id number], ,,,, TAL[place] [facility] Specimen Blood specimen (specimen) Performing Organization Address City/State/Zipcode Ph one Number INTERFACE SYSTEM [facility] PA [place]IA# [id number] Aldair JEFFERSON [address] [facility] [address] [facility] [facility] * CBC WITH MANUAL DIFFERENTIAL (01/28/2009 6:51 PM CDT) BASOPHILS 1 0 - 2 %[facility] PA [facility] NEUTROPHILS, 59 30 - 68 %Manual [facility] PA [facility] LYMPHOCYTES 31 14 - 50 %[facility] PA [facility] MONOCYTE 9 0 - 11 %[facility] PA [facility] PLATELET EST. Normal [facility] PA [facility] WBC ESTIMATE Normal [facility] PA [facility] WBC 6.89 3.0 - 10.4 x10E3 [facility] PA [facility] RBC 4.47 4.15 - 5.75 x10E6 [facility] PA [facility] HEMOGLOBIN 13.5 (L) 13.8 - 17.4 g/dL [facility] PA [facility] HEMATOCRIT 36.7 (L) 38.6 - 49.4 % [facility] PA [facility] MCV 82.2 79 - 100 fL [facility] PA [facility] MCH 30.1 28 - 34 pg [facility] PA [facility] MCHC 36.6 (H) 33 - 36 g/dL [facility] PA [facility] RDW 14.0 12.1 - 14.1 % [facility] PA [facility] PLATELETS 350 148 - 408 x10E3 [facility] PA [facility] MPV 6.9 (L) 7.4 - 10.6 fL [facility] PA [facility] NEUTROPHILS 62.1 43 - 73 % [facility] PA [facility] LYMPHOCYTES 29.1 19 - 47 % [facility] PA [facility] MONOCYTES 6.0 3 - 9 % [facility] PA [facility] EOSINOPHILS 2.6 0 - 6 % [facility] PA [facility] BASOPHILS 0.2 0 - 1.2 % [facility] PA [facility] NEUTROPHIL 4.28 1.3 - 7.6 x10E3 [facility] PA [facility] LYMPHOCYTE 2.01 0.6 - 4.9 x10E3 [facility] PA [facility] MONOCYTE 0.42 0.1 - 0.9 x10E3 [facility] PA [facility] EOSINOPHIL 0.18 0.0 - 0.2 x10E3 [facility] LAB BASOPHILS 0.01Comment: [facility] HOSPITALFAYE,KS 0 - 0.1 x10E3 [facility] ABSOLUTE ACCT#[id number], ,,,, CENTER [facility] Specimen Blood specimen (specimen) Performing Organization Address City/[facility] Ph one Number INTERFACE SYSTEM [facility] CLIA# [id number] PA [facility] Ald[place] S [address] [facility] [address] [facility] * COMPREHENSIVE METABOLIC PANEL (01/28/2009 6:51 PM CDT) GLUCOSE 147 (H) 70 - 110 mg/dl [facility] LAB BUN 21.0 (H) 7 - 20 mg/dl [facility] CREATININE 1.20 0.8 - 1.3 mg/dl [facility] BUN/CREAT RATIO 17.5 10 - 20 [facility] GFR 66 >90 ml/min [facility] SODIUM 136 135 - 145 mmol/L [facility] POTASSIUM 4.3 3.3 - 4.8 mmol/L [facility] CHLORIDE 101 98 - 107 mmol/L [facility] CO2 28.2 22 - 31 mmol/L [facility] ANION GAP 11 4 - 20 [facility] CALCIUM 9.2 8.5 - 10.1 mg/dl [facility] ALBUMIN 4.4 3.4 - 5.0 g/dl [facility] TOTAL PROTEIN 7.4 6.4 - 8.2 g/dl [facility] GLOBULIN (CALC) 3.0 [facility] LAB ALBUMIN/GLOBULI 1.5 [facility] LAB BILIRUBIN TOTAL 0.3 <1.1 mg/dl [facility] LAB ALKALINE 63 50 - 136 IU/L [facility] PHOSPHATASE [facility] LAB AST 22 10 - 40 IU/L [facility] LAB ALT 37Comment: [facility] HOSPITALSANJEEVKS 25 - 70 IU/L [facility] ACCT#[id number], ,,,, C[facility] Specimen Blood specimen (specimen) Performing Organization Address City/[facility] Ph one Number INTERFACE [facility] CLIA# [id number] [facility] Aldair RUGGIERO [address] [facility] [address] [place] [address] * BRAIN NATRIURETIC PEPTIDE, BNP OR PROBNP (01/28/2009 6:51 PM CDT) BRAIN 146 (H)Comment: 0 - 125 pg/ml [facility] NATRIURETIC [facility]ITALFAYEL[facility] PEPTIDE ACCT#[id number], ,,,, [facility] Specimen Blood specimen (specimen) Performing Organization Address [facility] one Number [facility] CLIA# [id number] [facility] [place] RUGGIERO [address] [facility] [address] [facility] [facility] * D-DIMER (01/28/2009 6:51 PM CDT) Pathologist [facility] D-DIMER QUANT Less than 100 0 - 400 ng/mL [facility] Comment: [facility] 90% of patients testing below [place] [facility] 400 ng/ml have proven negative for Thromboembolic Events. [facility] HOSPITALMARIUSZ [facility] ACCT#[id number], ,,,, Specimen Blood specimen (specimen) Performing Organization Address [facility] [place] CLIA# [id number] Aldair JEFFERSON [address] [facility] [address] [place] [address] * LIPASE (01/28/2009 6:51 PM CDT) LIPASE 296 (H)Comment: 114 - 286 U/L FOR[facility]LY NAMED [facility] CENTERFAYEMERCYONE [facility] ACCT#[id number], ,,,, [facility] Specimen Blood specimen (specimen) Performing Organization Address [facility] one [facility] [place] CLIA# [id number] [facility] Ald[place] RUGGIERO [address] [facility] [address] [place] [address] documented in this encounter Visit Diagnoses Diagnosis Acute pancreatitis Chest pain Chest pain, unspecified Follow-up examination, following unspec ified surgery documented in this encounter Administered Medications Action Date Dose Rate Site Medication Order MAR Action 02/01/2009 6:15 AM CDT 3 mL albuterol-ipratropium (DUONEB) 0.5-2.5 Given mg/3 mL inhalation solution 3 mL 3 mL, Inhalation, EVERY 6 HOURS RESPIRATORY, First dose on Wed01/29/09 at 1100, Until Discontinued, Routine 3 mL Given 01/31/2009 9:59 PM CDT 3 mL Given 01/31/2009 5:55 PM CDT 02/01/2009 9:35 AM CDT 0.5 mg alprazolam (XANAX) tablet 0.5 mg Given 0.5 mg, Oral, THREE TIMES DAILY PRN, Starting Nancy 01/31/09 at 0821, Until Wed02/01/09 at 1520, Anxiety, Routine 0.5 mg Given 01/31/2009 8:29 PM CDT 0.5 mg Given 01/31/2009 8:58 AM CDT 01/28/2009 6:47 PM CDT 243 mg aspirin (AMELIA CHEWABLE) chew tablet 324 Given mg 324 mg, Oral, ONE TIME ONLY, 1 dose, Mo n 01/28/09 at 1900, Stat 01/30/2009 9:31 AM CDT 81 mg aspirin (ECOTRIN EC) tablet 81 mg Given 81 mg, Oral, DAILY, First dose on Wed01/28/09 at 2130, Until Discontinued, Routine, OUTPATIENT INSTRUCTIONSApolinar e 81 mg by mouth daily. , 81 mg Given 01/29/2009 1:12 PM CDT ASPIRIN 81 MG CHEWABLE TAB 1 dose, Starting Wed01/28/09 at 1843, Until Wed01/28/09 at 1847, Splitter OMNICELL: Cabinet Override, 02/01/2009 12:40 PM CDT 25 mg bethanechol (URECHOLINE) tablet 25 mg Given 25 mg, Oral, FOUR TIMES DAILY, First dose on Wed01/28/09 at 2130, Until Discontinued, Routine, OUTPATIENT INSTRUCTIONSTake 1 Tab by mouth 4 times daily. , 25 mg Given 02/01/2009 9:25 AM CDT 25 mg Given 01/31/2009 8:32 PM CDT 01/30/2009 8:54 PM CDT 10 mg bisacodyl delayed release (DULCOLAX) Given tablet 10 mg 10 mg, Oral, ONE TIME ONLY, 1 dose, 01/30/09 at 2100, Routine 01/31/2009 8:33 PM CDT 20 mg bisacodyl delayed release (DULCOLAX) Given tablet 20 mg 20 mg, Oral, ONE TIME ONLY, 1 dose, Nancy 01/31/09 at 2100, Routine 02/01/2009 9:25 AM CDT 10 mg cetirizine (ZYRTEC) tablet 10 mg Given 10 mg, Oral, DAILY, First dose on Wed01/29/09 at 0900, Until Discontinued, Routine 10 mg Given 01/31/2009 8:49 AM CDT 10 mg Given 01/30/2009 9:45 AM CDT 01/29/2009 3:27 PM CDT 75 mg clopidogrel (PLAVIX) tablet 75 mg Given 75 mg, Oral, DAILY, First dose on Wed01/28/09 at 2030, Until Discontinued, Routine, OUTPATIENT INSTRUCTIONSApolinar e 75 mg by mouth daily. , 75 mg Given 01/28/2009 8:29 PM CDT 01/29/2009 9:35 AM CDT 100 mg Abdomen, Left Upper Quadrant enoxaparin (LOVENOX) injection 100 mg Given 100 mg (1 mg/kg 99.8 kg), subCUT, EVERY 12 HOURS (BlD), First dose on Wed01/28/09 at 2100, Unti l Discontinued, Routine 100 mg Abdomen, Left Lower Quadrant Given 01/28/2009 8:56 PM CDT 01/31/2009 8:32 PM CDT 10 mg ezetimibe (ZETIA) tablet 10 mg Given 10 mg, Oral, DAILY AT BEDTIME, First dose on Wed01/28/09 at 2130, Until Discontinued, Routine, OUTPATIENT INSTRUCTIONSTake 10 mg by mouth daily at bedtime. , 10 mg Given 01/30/2009 8:54 PM CDT 10 mg Given 01/29/2009 9:22 PM CDT 01/31/2009 5:09 PM CDT 145 mg fenofibrate nanocrystallized (TRICOR) Given tablet 145 mg 145 mg, Oral, DAILY WITH SUPPER, First dose on Wed01/29/09 at 1700, Until Discontinued, Routine, OUTPATIENT INSTRUCTIONSTake 145 mg by mouth jono y with supper. , 145 mg Given 01/30/2009 5:11 PM CDT 145 mg Given 01/29/2009 5:40 PM CDT 02/01/2009 9:25 AM CDT 20 mg fluoxetine (PROZAC) capsule 20 mg Given 20 mg, Oral, DAILY, First dose on Wed01/29/09 at 0900, Until Discontinued, Routine 20 mg Given 01/31/2009 8:49 AM CDT 20 mg Given 01/30/2009 9:31 AM CDT 02/01/2009 9:25 AM CDT 2 Sprays fluticasone (FLONASE) nasal spray 2 Given [place] 2 [place], Both Nostrils, DAILY, First dose on Wed01/28/09 at 2130, Until Discontinued, Routine, OUTPATIENT INSTRUCTIONSAdminister 2 Sprays in each nostril daily. , 2 Sprays Given 01/31/2009 8:52 AM CDT 2 Sprays Given 01/30/2009 9:38 AM CDT 02/01/2009 9:25 AM CDT 2 Puffs fluticasone (FLOVENT) 110 mcg/Actuation Given inhaler 2 Puff 2 Puff, Inhalation, EVERY 12 HOURS RESPIRATORY, First dose (after last modification) on Wed01/29/09 at 2100, Until Discontinued, Routine 2 Puffs Given 01/31/2009 8:30 PM CDT 2 Puffs Given 01/31/2009 8:50 AM CDT 01/29/2009 9:35 AM CDT 3 Puffs fluticasone (FLOVENT) 110 mcg/Actuation Given inhaler 3 Puff 3 Puff, Inhalation, EVERY 12 HOURS RESPIRATORY, First dose on Wed01/29/09 at 0900, Until Discontinued, Routine 01/30/2009 5:11 PM CDT 45 mcg Arm, Lef t Upper influen Tr-Split 2007 Vac (PF) 45 Given mcg/0.5 mL injection 45 mcg 45 mcg (0.5 mL), IM, ONE TIME ONLY, 1 dose, 01/30/09 at 1500, Routine 01/29/2009 11:35 AM CDT ioversol (OPTIRAY 320) 320 mg/mL Given injection IV, INTRA-PROCEDURE ONCE, 1 dose, Starting Wed01/29/09 at 1149, Until Wed01/29/09 at 1135 02/01/2009 9:25 AM CDT 60 mg isosorbide mononitrate (IMDUR) tablet 60 Given mg 60 mg, Oral, TWO TIMES DAILY, First dos e on Wed01/28/09 at 2130, Until Discontinued, Routine, OUTPATIENT INSTRUCTIONSTake 1 Tab by mouth 2 times daily. , 60 mg Given 01/31/2009 8:32 PM CDT 60 mg Given 01/31/2009 8:49 AM CDT 02/01/2009 6:30 AM CDT 10 mg metoclopramide (REGLAN) injection 10 mg Given 10 mg, IV, EVERY 6 HOURS, First dose on Wed01/30/09 at 1200, Until Discontinued , Routine 10 mg Given 02/01/2009 12:13 AM CDT 10 mg Given 01/31/2009 5:10 PM CDT 02/01/2009 9:25 AM CDT 25 mg metoprolol succinate (TOPROL-XL) tablet Given 25 mg 25 mg, Oral, DAILY, First dose on Wed01/28/09 at 2130, Until Discontinued, Routine 25 mg Given 01/31/2009 8:49 AM CDT 25 mg Given 01/30/2009 9:45 AM CDT 01/29/2009 12:02 AM CDT 2 mg MORphine 2 mg/mL injection 2 mg Given 2 mg, IV, EVERY 1 HOUR PRN, Starting Mo n 01/28/09 at 2031, Until Wed01/29/09 at 0907, Pain, Routine 2 mg Given 01/28/2009 10:38 PM CDT 2 mg Given 01/28/2009 9:40 PM CDT 01/28/2009 7:04 PM CDT 2 mg MORPHINE 2 MG/ML SYRINGE Given 1 dose, Starting Wed01/28/09 at 1901, Until Wed01/28/09 at 1904, Splitter OMNICELL: Cabinet Override, 01/28/2009 7:30 PM CDT 2 mg MORPHINE 2 MG/ML SYRINGE Given 1 dose, Starting Wed01/28/09 at 1916, Until Wed01/28/09 at 1930, Splitter OMNICELL: Cabinet Override, 01/28/2009 6:57 PM CDT 0.4 mg nitroglycerin (NITROSTAT) tablet 0.4 mg Given 0.4 mg, Sublingual, EVERY 5 MINUTES PRN , 3 doses, Starting Wed01/28/09 at 1847, Until Wed01/28/09 at 2126, Chest Pain, Routine 0.4 mg Given 01/28/2009 6:52 PM CDT NITROGLYCERIN 0.4 MG SUBLINGUAL TAB 1 dose, Starting Wed01/28/09 at 1843, Until Wed01/28/09 at 1852, Splitter OMNICELL: Erick Override, 01/31/2009 8:31 PM CDT 40 mg pantoprazole (PROTONIX) injection 40 mg Given 40 mg, IV, DAILY, First dose on Wed01/28/09 at 2030, Until Discontinued, Routine 40 mg Given 01/30/2009 8:53 PM CDT 40 mg Given 01/29/2009 9:22 PM CDT 01/31/2009 2:14 PM CDT 1 Each peg 3350-electrolytes (GOLYTELY) oral Given solution 1 Each 1 Each (1 Bottle), Oral, ONE TIME ONLY, 1 dose, [facility] 01/31/09 at 1400, Routine, Begin at 2 pm on 01/31. Drink 8 oz of the mixture every 30 minutes. Try to finish entire amount. If nauseated or bloated, stop for one hour., 02/01/2009 9:25 AM CDT 200 mg phenytoin (DILANTIN) capsule 200 mg Given 200 mg, Oral, TWO TIMES DAILY, First dose (after last modification) on Wed01/29/09 at 0900, Until Discontinued, Routine 200 mg Given 01/31/2009 8:33 PM CDT 200 mg Given 01/31/2009 8:48 AM CDT 01/31/2009 3:14 PM CDT 30 mg pioglitazone (ACTOS) tablet 30 mg Given 30 mg, Oral, DAILY, First dose on Wed01/29/09 at 1500, Until Discontinued, Routine 30 mg Given 01/30/2009 3:23 PM CDT 30 mg Given 01/29/2009 1:19 PM CDT 02/01/2009 9:25 AM CDT 10 mg ramipril (ALTACE) capsule 10 mg Given 10 mg, Oral, DAILY, First dose on Wed01/28/09 at 2130, Until Discontinued, Routine, OUTPATIENT INSTRUCTIONSApolinar e 10 mg by mouth daily. At noon , 10 mg Given 01/31/2009 8:49 AM CDT 10 mg Given 01/30/2009 9:31 AM CDT 01/31/2009 8:32 PM CDT 80 mg simvastatin (ZOCOR) tablet 80 mg Given 80 mg, Oral, DAILY AT BEDTIME, First dose on Wed01/28/09 at 2130, Until Discontinued, Routine 80 mg Given 01/30/2009 8:54 PM CDT 80 mg Given 01/29/2009 9:22 PM CDT 01/28/2009 7:19 PM CDT 3 mL sodium chloride 0.9 % flush injection 3 Given mL 3 mL, IV, TWO TIMES DAILY, First dose o n Wed01/28/09 at 2100, Until Discontinued , Routine 02/01/2009 6:31 AM CDT 3 mL sodium chloride 0.9 % flush injection 3 Given mL 3 mL, IV, SEE ADMIN INSTRUCTIONS, Starting Wed01/29/09 at 0715, Until Wed02/01/09 at 1520, Routine 3 mL Given 02/01/2009 12:12 AM CDT 3 mL Given 01/31/2009 8:30 PM CDT 02/01/2009 9:26 AM CDT 3 mL sodium chloride 0.9 % flush injection 3 Given mL 3 mL, IV, TWO TIMES DAILY, First dose o n Wed01/30/09 at 2100, Until Discontinued , Routine 3 mL Given 01/31/2009 8:34 PM CDT 3 mL Given 01/31/2009 8:52 AM CDT 01/29/2009 9:22 PM CDT 40 mL/hr sodium chloride 0.9 % infusion New Bag IV, at 40 mL/hr, CONTINUOUS, Starting Wed01/28/09 at 2030, Until Wed01/30/09 at 0840, Routine 40 mL/hr 40 mL/hr Rate Change 01/29/2009 9:07 AM CDT 125 mL/hr New Bag 01/28/2009 8:25 PM CDT SODIUM CHLORIDE 0.9 % SYRINGE 1 dose, Starting Wed01/28/09 at 1843, Until Wed01/28/09 at 1919, Splitter OMNICELL: Cabinet Override, 01/31/2009 5:09 PM CDT 0.4 mg tamsulosin SR 24 hour (FLOMAX) capsule Given 0.4 mg 0.4 mg, Oral, DAILY AFTER BREAKFAST, First dose (after last modification) on Wed01/29/09 at 1800, Until Discontinued , Routine 0.4 mg Given 01/30/2009 5:11 PM CDT 0.4 mg Given 01/29/2009 5:40 PM CDT 02/01/2009 9:25 AM CDT 1 Drop timolol (TIMOPTIC) 0.5 % ophthalmic Given solution 1 Drop 1 Drop, Both Eyes, TWO TIMES DAILY, First dose on 01/28/09 at 2130, Unti l Discontinued, Routine 1 Drop Given 01/31/2009 8:30 PM CDT 1 Drop Given 01/31/2009 8:53 AM CDT documented in this encounter
--- OUTSIDE RECORDS SUMMARY | 2020-03-24 14:47 | XMS REPORT | Encounter Summary ---
Author Author [facility] Organization [facility] Address Unknown Phone Unavailable Care Team Providers Care Corporate Development Officer Name Role Phone Shahram Mccallum MD PCP Unavailable Reason for Visit * Reason Comments Diabetes lab results Encounter Details Care Team Description Date Type Department Shahram Mccallum MD NO ADDRESS ON FILE Other Convulsions; DM w/o Complication Type I; Chronic Airway Obstruction, not Elsewhere Classified; Cor Athrscl-Uns Vessel; Hyperlipidemia; Anemia 11/12/2008 Office Visit [address] [address] Social History Date Tobacco Use [...] Signs Reading Time Taken Comments Vital Sign 124/66 11/12/2008 8:56 AM CUSTOM FEED MILL OPERATOR Blood Pressure 64 11/12/2008 8:56 AM CUSTOM FEED MILL OPERATOR Pulse - - Temperature - - Respiratory Rate - - Oxygen Saturation - - Inhaled Oxygen Concentration 101.6 kg (224 lb) 11/12/2008 8:56 AM CUSTOM FEED MILL OPERATOR Weight - - Height - - Body Mass Index documented in this encounter Progress Notes * Shahram Mccallum MD - 11/12/2008 9:36 AM CUSTOM FEED MILL OPERATOR Subjective: Oliverio Dalton is a 58 y.o. [...] Disorder, Unspecified 296.80 Hyperlipidemia 272.4S Anemia 285.9AA Current outpatient prescriptions prior to encounter Medication Sig Dispense Refill DISCONTD: fluoxetine (PROZAC) 20 mg Oral Tab Take 2 Tabs by mouth daily. 60 Tab 11 insulin glargine (LANTUS) 100 unit/mL subCUT Soln Inject by subcutaneous in jection. 20 units at hs. 10 mL 5 zolpidem (AMBIEN) 10 mg Oral Tab Take 1 Tab by mouth nightly as needed for I nsomnia. 30 Tab 3 DISCONTD: doxycycline hyclate (VIBRAMYCIN) 100 mg Oral Cap Take 1 Cap by henrik th daily. 11 Cap 0 DISCONTD: PHENYTOIN PO Take 200 mg by mouth. Two tabs twice daily ASPIRIN EC 81 mg Oral TbEC Take 81 mg by mouth daily. bethanechol (URECHOLINE) 25 mg Oral Tab Take 25 mg by mouth 4 times daily. FLOMAX 0.4 mg Oral Cp24 Take [...] Tab Take 75 mg by mouth daily. PROTONIX 40 mg Oral TbEC Take 40 mg by mouth daily. TRICOR 145 mg [...] Drop in both eyes 2 times daily. isosorbide mononitrate (IMDUR) 60 mg Oral Tb24 Take 60 mg by mouth 2 times d aily. Vshbish-Lsttkxott-Vgto Oral Tab Take by mouth 2 times daily. DEEP SEA NASAL NA Administer 2 Sprays in each nostril 2 times daily. simvastatin (ZOCOR) 80 mg Oral Tab Take 80 mg by mouth daily at bedtime. PHENYTEK 200 mg Oral Cap Take 200 mg by mouth 2 times daily. ACCU-CHEK ACTIVE TEST Strp by See Admin Instructions route 2 times daily. In the am & pm prn TOPROL XL PO Take 25 mg by mouth daily. ALTACE 10 mg Oral Cap Take 10 mg by mouth daily. At noon TYLENOL 325 mg Oral Tab Take 1-2 Tabs by mouth every 4 hours as needed for P ain. DISCONTD: AVANDIA 8 mg Oral Tab Take 8 mg by mouth daily. DISCONTD: LANTUS SC Inject 20 Units by subcutaneous injection daily at bedti me. 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 DISCONTD: NOVOLIN R 100 unit/mL Injection Soln Inject by subcutaneous inject ion. Sliding scale with accuchecks call if blood sugar less than 50 or greater t perez 450. 150-200-4 units, 201-250-6 units, 251-300-8 units, 301-350-10 units, 35 2-121-45osbya, 401-450- 14 units DISCONTD: SENOKOT-S 8.6-50 mg Oral Tab Take 2 Tabs by mouth daily at bedtime . Lab Results Component Value Date/Time HEMOGLOBIN A1C 6.7 10/29/08 7:25 AM HEMOGLOBIN A1C 5.9 02/07/08 10:55 AM HEMOGLOBIN A1C 5.8 10/21/07 8:02 AM LDL CALCULATED 0 06/29/08 3:50 AM LDL CHOLESTEROL, DIRECT 143 10/29/08 7:25 AM CREATININE 0.90 10/29/08 7:25 AM Lab Results Component Value Date/Time CHOLESTEROL 231 10/29/08 7:25 AM CHOLESTEROL 215 06/29/08 3:50 AM CHOLESTEROL 208 4/6/08 4:55 AM HDL 60 10/29/08 7:25 AM HDL 33 06/29/08 3:50 AM HDL 32 02/12/08 4:55 AM LDL CALCULATED 0 06/29/08 3:50 AM LDL CHOLESTEROL, DIRECT 143 10/29/08 7:25 AM LDL CHOLESTEROL, DIRECT 119 02/12/08 4:55 AM LDL CHOLESTEROL, DIRECT 142 02/07/08 10:55 AM TRIGLYCERIDE 191 10/29/08 7:25 AM TRIGLYCERIDE 412 06/29/08 3:50 AM TRIGLYCERIDE 554 02/12/08 4:55 AM ALT 41 10/29/08 7:25 AM AST 25 10/29/08 7:25 AM Lab Results Component Value Date/Time CREATININE 0.90 10/29/08 7:25 AM BUN 22.0 10/29/08 7:25 AM SODIUM 138 10/29/08 7:25 AM POTASSIUM 4.2 10/29/08 7:25 AM CHLORIDE 100 10/29/08 7:25 AM CO2 29.1 10/29/08 7:25 AM GFR 92 10/29/08 7:25 AM Lab Results Component Value Date/Time WBC 7.90 06/28/08 9:18 AM HEMOGLOBIN 13.1 06/28/08 9:18 AM HEMATOCRIT 38.5 06/28/08 9:18 AM PLATELETS 418 06/28/08 9:18 AM MCV 86.3 06/28/08 9:18 AM Lab Results Component Value Date/Time ALT 41 10/29/08 7:25 AM AST 25 10/29/08 7:25 AM ALKALINE PHOSPHATASE 57 10/29/08 7:25 AM BILIRUBIN TOTAL 0.2 10/29/08 7:25 AM Lab Results Component Value Date/Time INR 1.14 02/07/08 10:55 AM PROTIME 11.9 02/07/08 10:55 AM HPI: Mr. Dalton complains of the following (by systems): Diabetes Type II complaints: patient is asymptomatic, is compliant with meds a nd diet; glucose monitoring is usually in normal ranges Hypertension related symtoms/issues: taking medications as instructed, no side effects of medications, no chest pain on exertion, no dyspnea on exertion, no e sharon recent possible seizure but not like prior episodes. almost absence like. happen ed x 2. last 3 month ago. Review of Systems: ROS Denies all of the following: Headache Dizziness Chest pain: no change in cardiac situation. Did have transient rt chest pain at rest last week. Sl sob no diaphoresis Shortness of breath Bowel changes Bladder changes Pain in muscle or joints Exam/Objective: Normal Exam for Routine Visits: \Blood pressure 124/66, pulse 64, weight 224 lb (101.606 kg). General appearance: chronically ill appearing, active, alert, cooperative, no di stress, social, normally nourished, and in no acute distress Lungs: breath sounds equal, clear to auscultation bilaterally, no retractions, n o stridor, normal respiratory effort Heart: regular rate and rhythm, S1, S2 normal, no murmur, click, rub, gallop, or abnormal sounds. Abdomen: soft, non-tender. Bowel sounds normal. No masses, no organomegaly. Ac tive bowel sounds. Extremities: symmetrical non edematous. Neuro: alert no lat deficits. No seizure activity Assessment and Plan: ASSESSMENT: Encounter Diagnoses Name Primary? Other Convulsions DM w/o Complication Type I Chronic Airway Obstruction, not Elsewhere Classified Cor Athrscl-Uns Vessel Hyperlipidemia Anemia PLAN: Orders Placed This Encounter Phenytoin level, total Comprehensive metabolic panel Hemoglobin a1c Lipid panel Cbc with differential Phenytoin level, total Appropriate medications prescribed (see detailed AVS). Appropriate patient instructions provided (see detailed AVS). Follow-up as I have indicated. Medications and options explained to include common side effects. Understanding of medications, course, diagnosis, and expectations were expressed by patient/g uardian. OM FEED MILL OPERATOR documented in this encounter Plan of Treatment Not on filedocumented as of this encounter Results * PHENYTOIN LEVEL, TOTAL (02/06/2009 8:04 AM CDT) PHENYTOIN TOTAL 18.5Comment: [facility] 10 - 20 ug/ml [facility] ACCT#[id number], ,,,, CENTER [facility] Specimen Blood specimen (specimen) Performing Organization Address City/State/Zipcode Ph one Number INTERFACE SYSTEM [facility] CLIA# [id number] Leonides JEFFERSON [address] [facility] [address] [place] [address] * CBC WITH DIFFERENTIAL (02/06/2009 8:04 AM CDT) WBC 6.29 3.0 - 10.4 x10E3 [facility] RBC 4.41 4.15 - 5.75 x10E6 [facility] HEMOGLOBIN 13.0 (L) 13.8 - 17.4 g/dL [facility] HEMATOCRIT 36.5 (L) 38.6 - 49.4 % [facility] MCV 82.8 79 - 100 fL [facility] MCH 29.4 28 - 34 pg [facility] MCHC 35.5 33 - 36 g/dL [facility] RDW 14.0 12.1 - 14.1 % [facility] PLATELETS 362 148 - 408 x10E3 [facility] MPV 7.1 (L) 7.4 - 10.6 fL [facility] NEUTROPHILS 67.0 43 - 73 % [facility] LYMPHOCYTES 24.8 19 - 47 % [facility] MONOCYTES 5.7 3 - 9 % [facility] EOSINOPHILS 2.2 0 - 6 % [facility] BASOPHILS 0.3 0 - 1.2 % [facility] NEUTROPHIL 4.21 1.3 - 7.6 x10E3 [facility] LYMPHOCYTE 1.56 0.6 - 4.9 x10E3 [facility] MONOCYTE 0.36 0.1 - 0.9 x10E3 [facility] EOSINOPHIL 0.14 0.0 - 0.2 x10E3 [facility] BASOPHILS 0.02Comment: [facility],[place] 0 - 0.1 x10E3 [facility] ACCT#[id number], ,,,, [facility] Specimen Blood specimen (specimen) Performing Organization Address City/State/Zipcode Ph one Number INTERFACE SYSTEM [facility] [place]# [id number] Leonides JEFFERSON [address] [facility] [address] [facility] * LIPID PANEL (02/06/2009 8:04 AM CDT) CHOLESTEROL 216 (H) 140 - 200 mg/dl [facility] TRIGLYCERIDE 233 (H) 0 - 199 mg/dl [facility] Comment: [facility] REFERENCE RANGE - [facility] TRIGLYCERIDES NORMAL LESS THAN 150 mg/dl BORDERLINE HIGH 150 - 199 mg/dl HIGH 200 - 499 mg/dl VERY HIGH GREATER THAN OR = 500 mg/dl HDL 49 27 - 67 mg/dl [facility] LDL 145 (H) <130 mg/dl [facility] CHOLESTEROL, Comment: [facility] DIRECT [facility] RISK CATEGORY LDL GOAL High risk: <100 mg/dl CHD or CHD risk equivalents (optional goal: <70 mg/dl) (10-year risk > 20%) Moderately high risk <130 mg/dl 2+ risk factors (10-year risk 10% to 20%) Moderate risk: <130 mg/dl 2+ risk factors (10-year risk < 10%) Lower risk: <160 mg/dl 0-1 risk factor [facility] ACCT#[id number], ,,,, Specimen Blood specimen (specimen) Performing Organization Address [facility] Ph one Number INTERFACE SYSTEM [facility] CLIA# [id number] Leonides JEFFERSON [address] [facility] [address] [place] [address] * HEMOGLOBIN A1C (02/06/2009 8:04 AM CDT) HEMOGLOBIN A1C 6.0 0 - 6.0 % [facility] GLUCOSE, MEAN 124Comment: GAB JUAN mg/dl [facility] BLOOD ACCT#[id number], ,,,, [facility] Specimen Blood specimen (specimen) Performing Organization Address [facility] Ph one Number INTERFACE SYSTEM [facility] CLIA# [id number] Leonides JEFFERSON [address] [facility] [address] [place] [address] * COMPREHENSIVE METABOLIC PANEL (02/06/2009 8:04 AM CDT) GLUCOSE 116 (H) 70 - 110 mg/dl [facility] BUN 18.0 7 - 20 mg/dl [facility] CREATININE 1.00 0.8 - 1.3 mg/dl [facility] BUN/CREAT RATIO 18.0 10 - 20 [facility] GFR 81 >90 ml/min [facility] SODIUM 135 135 - 145 mmol/L [facility] POTASSIUM 4.1 3.3 - 4.8 mmol/L [facility] CHLORIDE 101 98 - 107 mmol/L [facility] CO2 25.7 22 - 31 mmol/L [facility] ANION GAP 12 4 - 20 [facility] CALCIUM 9.0 8.5 - 10.1 mg/dl [facility] ALBUMIN 4.2 3.4 - 5.0 g/dl [facility] TOTAL PROTEIN 7.3 6.4 - 8.2 g/dl [facility] GLOBULIN (CALC) 3.1 [facility] ALBUMIN/GLOBULI 1.4 [facility] N RATIO [facility] BILIRUBIN TOTAL 0.3 <1.1 mg/dl [facility] ALKALINE 70 50 - 136 IU/L [facility] PHOSPHATASE [facility] AST 24 10 - 40 IU/L [facility] ALT 44Comment: DRAKEKS 25 - 70 IU/L [facility] ACCT#[id number], ,,,, CENTER [facility] Specimen Blood specimen (specimen) Performing Organization Address City/[facility] Ph one Number INTERFACE SYSTEM [facility] CLIA# [id number] Leonides JEFFERSON [address] [facility] [address] [facility] * PHENYTOIN LEVEL, TOTAL (11/12/2008 10:25 AM CUSTOM FEED MILL OPERATOR) PHENYTOIN TOTAL 16.3Comment: [facility] 10 - 20 ug/ml [facility] ACCT#[id number], ,,,, CENTER [facility] Specimen Blood specimen (specimen) Performing Organization Address City/[facility] Ph one Number INTERFACE SYSTEM [facility] CLIA# [id number] Leonides JEFFERSON [address] [facility] [address] [facility] documented in this encounter Visit Diagnoses Diagnosis Other convulsions Type I (juvenile type) diabetes mellitu s without mention of complication, not stated as uncontrolled Chronic airway obstruction, not elsewhe re classified Coronary atherosclerosis of unspecified type of vessel, [place] or graft Hyperlipidemia Other and unspecified hyperlipidemia Anemia Anemia, unspecified documented in this encounter
--- OUTSIDE RECORDS SUMMARY | 2020-03-24 14:47 | XMS REPORT | Encounter Summary ---
Author Author [facility] Organization [facility] Address Unknown Phone Unavailable Care Team Providers Care Opal Polisher Name Role Phone Shahram Mccallum MD PCP Unavailable Encounter Details Care Team Description Date Type Department Shahram Mccallum MD NO ADDRESS ON FILE [facility], Lab Schedule 10/29/2008 [facility] General Encounter Laboratory Services [address] [address] Social History Date Tobacco Use [...] Drop in both eyes 2 times daily. 10/18/2008 03/05/2010 insulin glargine (LANTUS) Inject by 10 mL 5 100 unit/mL subCUT Soln subcutaneous injection. 20 units at hs. 08/29/2008 11/21/2008 zolpidem (AMBIEN) 10 mg Take 1 Tab by 30 Tab 3 Oral Tab mouth nightly as needed for Insomnia. 12/29/2007 01/23/2009 bethanechol (URECHOLINE) Take 25 mg [...] by 0 mouth daily with lunch. 12/29/2007 12/19/2008 isosorbide mononitrate Take 60 mg by 0 (IMDUR) 60 mg Oral Tb24 mouth 2 times daily. 12/29/2007 10/18/2009 Plotcss-Mbcnrqmuw-Ikfz Take by mouth 0 Oral Tab 2 times daily. 12/29/2007 01/23/2009 simvastatin (ZOCOR) 80 mg Take 80 mg by 0 Oral Tab mouth daily at bedtime. 02/14/2008 01/09/2009 PHENYTEK 200 mg Oral Cap Take 200 mg 0 by mouth 2 times daily. 02/14/2008 08/30/2012 ACCU-CHEK ACTIVE TEST by See Admin 0 Strp Instructions route 2 times daily. In the am & pm prn 02/14/2008 10/30/2009 TOPROL XL PO Take 25 mg by 0 mouth daily. documented as of this encounter Plan of Treatment Not on filedocumented as of this encounter Procedures Comments Procedure Name Priority Date/Time Associated Diag nosis MAGNESIUM LEVEL Routine 10/29/2008 ASHD (Arterios clerotic 7:25 AM SALES REPRESENTATIVE AIRCRAFT Heart Disease) HEMOGLOBIN A1C Routine 10/29/2008 DM w/o Complica tion Type 7:25 AM SALES REPRESENTATIVE AIRCRAFT II LIPID PANEL Routine 10/29/2008 ASHD (Arteriosc lerotic 7:25 AM SALES REPRESENTATIVE AIRCRAFT Heart Disease) COMPREHENSIVE METABOLIC Routine 10/29/2008 ASHD ( Arteriosclerotic PANEL 7:25 AM SALES REPRESENTATIVE AIRCRAFT Heart Disease) documented in this encounter Results * MAGNESIUM LEVEL (10/29/2008 7:25 AM SALES REPRESENTATIVE AIRCRAFT) MAGNESIUM 1.6 (L)Comment: 1.8 - 2.4 mg/dl [facility] ACCT#[id number], ,,,, [facility] Specimen Blood specimen (specimen) Performing Organization Address City/State/Zipcode Ph one Number INTERFACE SYSTEM [facility] CLIA# [id number] Leonides JEFFERSON S [address] [facility] [address] [facility] * LIPID PANEL (10/29/2008 7:25 AM SALES REPRESENTATIVE AIRCRAFT) CHOLESTEROL 231 (H) 140 - 200 mg/dl [facility] TRIGLYCERIDE 191 0 - 199 mg/dl [facility] Comment: [facility] REFERENCE RANGE - [facility] TRIGLYCERIDES NORMAL LESS THAN 150 mg/dl BORDERLINE HIGH 150 - 199 mg/dl HIGH 200 - 499 mg/dl VERY HIGH GREATER THAN OR = 500 mg/dl HDL 60 27 - 67 mg/dl [facility] LDL 143 (H) <130 mg/dl [facility] CHOLESTEROL, Comment: [place] [facility] DIRECT [facility] RISK CATEGORY LDL GOAL High risk: <100 mg/dl CHD or CHD risk equivalents (optional goal: <70 mg/dl) (10-year risk > 20%) Moderately high risk <130 mg/dl 2+ risk factors (10-year risk 10% to 20%) Moderate risk: <130 mg/dl 2+ risk factors (10-year risk < 10%) Lower risk: <160 mg/dl 0-1 risk factor GAB JUAN ACCT#[id number], ,,,, Specimen Blood specimen (specimen) Performing Organization Address City/State/Zipcode Ph one Number INTERFACE SYSTEM [facility] [place]# [id number] Leonides JEFFERSON S [address] [facility] [address] [facility] * COMPREHENSIVE METABOLIC PANEL (10/29/2008 7:25 AM SALES REPRESENTATIVE AIRCRAFT) GLUCOSE 127 (H) 70 - 110 mg/dl [facility] BUN 22.0 (H) 7 - 20 mg/dl [facility] CREATININE 0.90 0.8 - 1.3 mg/dl [facility] BUN/CREAT RATIO 24.4 (H) 10 - 20 [facility] GFR 92 >90 ml/min [facility] SODIUM 138 135 - 145 mmol/L [facility] POTASSIUM 4.2 3.3 - 4.8 mmol/L [facility] CHLORIDE 100 98 - 107 mmol/L [facility] CO2 29.1 22 - 31 mmol/L [facility] ANION GAP 13 4 - 20 [facility] CALCIUM 9.0 8.5 - 10.1 mg/dl [facility] ALBUMIN 4.2 3.4 - 5.0 g/dl [facility] TOTAL PROTEIN 7.0 6.4 - 8.2 g/dl [facility] GLOBULIN (CALC) 2.8 [facility] ALBUMIN/GLOBULI 1.5 [facility] RATIO [place] [facility] BILIRUBIN TOTAL 0.2 <1.1 mg/dl [facility] ALKALINE 57 50 - 136 IU/L [facility] PHOSPHATASE [place] [facility] [place] [facility] AST 25 10 - 40 IU/L [facility] ALT 41Comment: [facility] 25 - 70 IU/L [facility] ACCT#[id number], ,,,, [facility] Specimen Blood specimen (specimen) Performing Organization Address City/[facility]/Zipcode Ph one Number INTERFACE SYSTEM [facility] CLIA# [id number] [place] [address] [facility] [address] * HEMOGLOBIN A1C (10/29/2008 7:25 AM SALES REPRESENTATIVE AIRCRAFT) HEMOGLOBIN A1C 6.7 (H) 0 - 6.0 % [facility] GLUCOSE, MEAN 146Comment: [facility]GAB mg/dl [facility] BLOOD ACCT#[id number], ,,,, [facility] Specimen Blood specimen (specimen) Performing Organization Address City/[facility] Ph one Number INTERFACE [facility] CLIA# [id number] Leonides JEFFERSON S [address] [facility] [address] documented in this encounter Visit Diagnoses Diagnosis ASHD (arteriosclerotic heart disease) Coronary atherosclerosis of unspecified type of vessel, [place] or graft Type II or unspecified type diabetes me llitus without mention of complication, not stated as uncontrolled documented in this encounter
--- OUTSIDE RECORDS SUMMARY | 2020-03-24 14:47 | XMS REPORT | Encounter Summary ---
Author Author [facility] Organization [facility] Address Unknown Phone Unavailable Care Team Providers Care Wheelabrator Operator Name Role Phone Shahram Mccallum MD PCP Unavailable Reason for Visit * Reason Comments Slow Heart Rate Encounter Details Care Team Description Date Type Department Walter Oconnor MD [address] [facility] [address] [place] [address] Bradycardia; CAD (Coronary Artery Disease); COPD; DM Complication NOS Type II, Uncontrolled; HTN; Seizure Disorder; Dyslipidemia 12/03/2008 Orders Only [facility] [address] [place] [address] Social History Date Tobacco Use [...] filedocumented as of this encounter Results * HOLTER MONITOR (12/11/2008 10:05 AM RAIL OPERATIONS CONTROLLER) Specimen Narrative Performed At This result has an attachment that is n ot available. Procedure Note Walter Oconnor MD - 12/10/2008 2:35 PM RAIL OPERATIONS CONTROLLER [facility]. [address] [place] [address]. [place], [place] [address] HOLTER MONITOR Pt OLIVERIO DALTON Date: : 58 Sex: M Location: [facility]# OPS Rm# Att: Walter Sullivan M.D. Ord: Fam: ER: 24 HOUR HOLTER MONITOR: Date of the tracin12-06-08 Clinical history: 58 year old with known coronary artery disease. The study is requested for atypical chest pain with complaints of palpitations and possible episodes of bradycardia. This is a 24 hour Holter monitor tracing. The rhythm during the study was sinus. The average heart rate was 68 beats per minute with a maximum of 97 beats per minute and a minimum of 52 beats per minute (sinus bradycardia). There were rare PVC's and very rare PAC's noted. There were no pauses, supraventricular tachycardia or ventricular tachycardia. During multiple diary entries of back pain, dizziness, shortness of breath and "fluttering in the chest" the rhythm was always sinus. IMPRESSION: 1. Sinus rhythm with periods of sinus bradycardia. 2. Rare PVC's. 3. Rare PAC's. 4. No arrhythmia to correlate with patient's diary entries of symptoms. Dictated by: Walter Oconnor M.D. DD 12/10/08 TD 12/10/08 1435 /LRG HOLTER MONITOR # [id number] Transcriptions 12/11/2008 10:00 AM RAIL OPERATIONS CONTROLLER documented in this encounter Visit Diagnoses Diagnosis Bradycardia Other specified cardiac dysrhythmias CAD (coronary artery disease) Coronary atherosclerosis of unspecified type of vessel, [place] or graft COPD Chronic airway obstruction, not elsewhe re classified Type II or unspecified type diabetes me llitus with unspecified complication, uncontrolled HTN Unspecified essential hypertension Seizure disorder Unspecified epilepsy without mention of intractable epilepsy Dyslipidemia Other and unspecified hyperlipidemia documented in this encounter
--- OUTSIDE RECORDS SUMMARY | 2020-03-24 14:47 | XMS REPORT | Encounter Summary ---
Author Author [facility] Organization [facility] Address Unknown Phone Unavailable Care Team Providers Care Grazing Aide Name Role Phone Shahram Mccallum MD PCP Unavailable Reason for Visit * Consult, Test & Treat (Routine) Referred By Contact Referred To Contact Status Reason Specialty Diagnoses / Procedures Walter Oconnor MD [address] [facility] [address] [place] [address] [facility] Cardiopulmonary [address] [place] [address] Closed Cardiopulmonary Diagnoses Rehabilitation holter moniter dx bradycardia dr nisha owens HOLTER MONITOR Encounter Details Care Team Description Date Type Department 12/06/2008 [facility] F ort Encounter [facility] [address] [place] [address] Social History Date Tobacco Use [...] Drop in both eyes 2 times daily. 12/05/2008 06/05/2009 oxaprozin (DAYPRO) [...] Tb24 mouth 2 times daily. 12/29/2007 10/18/2009 Trpdsmf-Wxtggkzff-Msws Take by mouth 0 Oral Tab 2 [...] Procedure Notes * Johnnie Duque Physician - 12/11/2008 10:00 AM PLASTIC SURGERY MANAGER Associated Order(s): HOLTER MONITOR; HOLTER MONITOR * Walter Oconnor MD - 12/10/2008 2:35 PM PLASTIC SURGERY MANAGER Associated Order(s): HOLTER MONITOR; HOLTER MONITOR [facility], [address] [address] HOLTER MONITOR Pt OLIVERIO TINSLEY Date: : 58 Sex: M Location: [facility] Rm# Att: Walter Sullivan M.D. Ord: Fam: ER: 24 HOUR HOLTER MONITOR: Date of the tracin12-06-08 Clinical history: 58 year old with known coronary artery disease. The study is requested for atypical chest pain with complaints of palpitations and possible e pisodes of bradycardia. This is a 24 hour Holter monitor tracing. The rhythm during the study was sinus . The average heart rate was 68 beats per minute with a maximum of 97 beats per minute and a minimum of 52 beats per minute (sinus bradycardia). There were rare PVC's and very rare PAC's noted. There were no pauses, supraventricular tachyca rdia or ventricular tachycardia. During multiple diary entries of back pain, diz ziness, shortness of breath and "fluttering in the chest" the rhythm was always sinus. IMPRESSION: 1. Sinus rhythm with periods of sinus bradycardia. 2. Rare PVC's. 3. Rare PAC's. 4. No arrhythmia to correlate with patient's diary entries of symptoms. Dictated by: Walter Oconnor M.D. DD 12/10/08 TD 12/10/08 1435 /LRG HOLTER MONITOR # [id number] TIC SURGERY MANAGER documented in this encounter Plan of Treatment Not on filedocumented as of this encounter Procedures Comments Procedure Name Priority Date/Time Associated Diag nosis HOLTER MONITOR Routine 12/11/2008 Bradycardia 10:05 AM PLASTIC SURGERY MANAGER CAD (Coronary Artery Disease) COPD DM Complication NOS Type II, Uncontrolled HTN Seizure Disorder Dyslipidemia documented in this encounter Results * HOLTER MONITOR (12/11/2008 10:05 AM PLASTIC SURGERY MANAGER) Specimen Narrative Performed At This result has an attachment that is n ot available. Procedure Note Walter Oconnor MD - 12/10/2008 2:35 PM PLASTIC SURGERY MANAGER [facility], [facility]. [address] [place] [address]. [place], [place] [address] HOLTER MONITOR Pt OLIVERIO TINSLEY Date: : 58 Sex: M Location: [facility]# OPS Rm# Att: Walter Sullivan M.D. [...] TD 12/10/08 1435 /LRG HOLTER MONITOR # [id number] Transcriptions 12/11/2008 10:00 AM PLASTIC SURGERY MANAGER documented in this encounter Visit Diagnoses Diagnosis Bradycardia Other specified cardiac dysrhythmias CAD (coronary artery disease) Coronary atherosclerosis of unspecified type of vessel, [place] or graft COPD Chronic airway obstruction, not elsewhe re classified Type II or unspecified type diabetes me llitus with unspecified complication, uncontrolled HTN Unspecified essential hypertension Seizure disorder Unspecified epilepsy without mention of intractable epilepsy Dyslipidemia Other and unspecified hyperlipidemia documented in this encounter
--- OUTSIDE RECORDS SUMMARY | 2020-03-24 14:47 | XMS REPORT | Encounter Summary ---
Author Author [facility] Organization [facility] Address Unknown Phone Unavailable Care Team Providers Care Animal Science Instructor Name Role Phone Shahram Mccallum MD PCP Unavailable Reason for Visit * Reason Comments Medication Refill Encounter Details Care Team Description Date Type Department Briseida Rodriguez, Driver License Agent 09/04/2008 Refill [facility] Primar y [facility] [address] [place] [address] Social History Date Tobacco Use [...] * Telephone Encounter - Rebeka Rodriguez - 09/04/2008 4:26 PM CDT Pt needs refill on oxaprozin 600mg #30. vo dr tavarez this was okd x3 [facility]. documented in this encounter Plan of Treatment Not on filedocumented as of this encounter Visit Diagnoses Not on filedocumented in this encounter
--- OUTSIDE RECORDS SUMMARY | 2020-03-24 14:47 | XMS REPORT | Encounter Summary ---
Author Author [facility] Organization [facility] Address Unknown Phone Unavailable Care Team Providers Care Supervisor Hospitality House Name Role Phone Shahram Mccallum MD PCP Unavailable Encounter Details Care Team Description Date Type Department [facility], Lab Schedule 11/12/2008 [facility] General Encounter Laboratory Services [address] [address] Social History Date Tobacco Use [...] Drop in both eyes 2 times daily. 04/18/2009 ACTOS 30 mg Oral Tab Take [...] Tb24 mouth 2 times daily. 12/29/2007 10/18/2009 Mybunyd-Lmhfxdfvz-Alau Take by mouth 0 Oral Tab 2 [...] Associated Diag nosis PHENYTOIN LEVEL, TOTAL Routine 11/12/2008 Other C onvulsions 10:25 AM INVENTORY CHECKER documented in this encounter Results * PHENYTOIN LEVEL, TOTAL (11/12/2008 10:25 AM INVENTORY CHECKER) PHENYTOIN TOTAL 16.3Comment: [facility] 10 - 20 ug/ml [facility] ACCT#[id number], ,,,, [facility] Specimen Blood specimen (specimen) Performing Organization Address City/State/Zipcode Ph one Number [facility]# [id number] [place] [address] [facility] [address] [facility] documented in this encounter Visit Diagnoses Diagnosis Other convulsions documented in this encounter
--- OUTSIDE RECORDS SUMMARY | 2020-03-24 14:47 | XMS REPORT | Encounter Summary ---
Author Author [facility] Organization [facility] Address Unknown Phone Unavailable Care Team Providers Care Director Of Clinical Education Name Role Phone Shahram Mccallum MD PCP Unavailable Reason for Visit * Reason Comments Medication Refill Encounter Details Care Team Description Date Type Department Briseida Rodriguez, Mail Handler Assistant 11/21/2008 Refill [facility] [address] [phone] Social History Date Tobacco Use Types Packs/Day [...]
--- OUTSIDE RECORDS SUMMARY | 2020-03-24 14:47 | XMS REPORT | Encounter Summary ---
Author Author [facility] Organization [facility] Address Unknown Phone Unavailable Care Team Providers Care Radiology Supervisor Name Role Phone Shahram Mccallum MD PCP Unavailable Reason for Visit * Reason Comments Medication Refill Encounter Details Care Team Description Date Type Department Briseida Rodriguez, Pin Pusher 10/18/2008 Refill [facility] [address] [phone] Social History Date Tobacco Use Types Packs/Day [...]
--- OUTSIDE RECORDS SUMMARY | 2020-03-24 14:47 | XMS REPORT | Encounter Summary ---
Author Author [facility] Organization [facility] Address Unknown Phone Unavailable Care Team Providers Care Picker And Packer Name Role Phone Shahram Mccallum MD PCP Unavailable Encounter Details Care Team Description Date Type Department Janell Marie RN 12/20/2008 [facility] F ort Encounter [facility] [address] [place] [address] Social History Date Tobacco Use [...] Drop in both eyes 2 times daily. 12/19/2008 06/26/2009 isosorbide mononitrate Take 1 [...] 0 mouth daily with lunch. 12/29/2007 10/18/2009 Rhwonsq-Aslxytjew-Qprk Take by mouth 0 Oral Tab 2 [...] Progress Notes * Janell Marie RN - 12/20/2008 2:00 PM INNERSOLE MAKER OP WOCN to trim diabetic toenails. No corns or callous noted. Pedal pulses +2 ca pillary refill less than 3 seconds.Wears extra depth diabetic shoes RSOLE MAKER documented in this encounter Plan of Treatment Not on filedocumented as of this encounter Visit Diagnoses Not on filedocumented in this encounter
--- OUTSIDE RECORDS SUMMARY | 2020-03-24 14:47 | XMS REPORT | Encounter Summary ---
Author Author [facility] Organization [facility] Address Unknown Phone Unavailable Care Team Providers Care Body Service Team Member Name Role Phone Shahram Mccallum MD PCP Unavailable Reason for Visit * Reason Comments Medication Refill Encounter Details Care Team Description Date Type Department Briseida Rodriguez, Drop Forger 10/24/2008 Refill [facility] [address] [phone] Social History Date Tobacco Use Types Packs/Day [...]
--- OUTSIDE RECORDS SUMMARY | 2020-03-24 14:47 | XMS REPORT | Encounter Summary ---
Author Author [facility] Organization [facility] Address Unknown Phone Unavailable Care Team Providers Care Digital Technician Name Role Phone Shahram Mccallum MD PCP Unavailable Reason for Visit * Reason Comments Medication Refill Encounter Details Care Team Description Date Type Department Shahram Mccallum MD NO ADDRESS ON FILE 12/19/2008 Refill [facility] Primar y Care [address] [phone] Social History Date Tobacco Use Types Packs/Day [...]
--- OUTSIDE RECORDS SUMMARY | 2020-03-24 14:47 | XMS REPORT | Encounter Summary ---
Author Author [facility] Organization [facility] Address Unknown Phone Unavailable Care Team Providers Care Asic Verification Engineer Name Role Phone Shahram Mccallum MD PCP Unavailable Encounter Details Care Team Description Date Type Department Janell Marie RN 10/12/2008 [facility] ort Encounter [facility] [address] [place] [address] Social History Date Tobacco Use [...] Drop in both eyes 2 times daily. 08/29/2008 11/21/2008 zolpidem (AMBIEN) 10 mg Take [...] by 0 mouth daily with lunch. 12/29/2007 10/24/2008 fluoxetine (PROZAC) 20 mg Take 20 mg by 0 Oral Tab mouth 2 times daily. 12/29/2007 12/19/2008 isosorbide mononitrate Take 60 mg by 0 (IMDUR) 60 mg Oral Tb24 mouth 2 times daily. 12/29/2007 10/18/2009 Fcvkdge-Cphrxcldd-Oohe Take by mouth 0 Oral Tab 2 [...] Progress Notes * Janell Marie RN - 10/12/2008 10:30 AM IRON PLASTIC BULLET MAKER OP WOCN to trim/debride fungal x2 toenails. No corns or callous noted. PLASTIC BULLET MAKER documented in this encounter Plan of Treatment Not on filedocumented as of this encounter Visit Diagnoses Not on filedocumented in this encounter
--- OUTSIDE RECORDS SUMMARY | 2020-03-24 14:47 | XMS REPORT | Encounter Summary ---
Author Author [facility] Organization [facility] Address Unknown Phone Unavailable Care Team Providers Care Field Supervisor Seed Production Name Role Phone Shahram Mccallum MD PCP Unavailable Reason for Visit * Reason Comments Nausea Encounter Details Care Team Description Date Type Department Nuris Miramontes Nausea 10/08/2008 Telephone [facility] Primar y Care [place] [address] [place] [address] Social History Date Tobacco Use [...] * Telephone Encounter - Nuris Miramontes - 10/08/2008 4:31 PM SCRIPT GIRL phenergan 25mg #30sig: one tab every 4-6 hours prn called to joe payne PT GIRL documented in this encounter Plan of Treatment Not on filedocumented as of this encounter Visit Diagnoses Not on filedocumented in this encounter
--- OUTSIDE RECORDS SUMMARY | 2020-03-24 14:47 | XMS REPORT | Encounter Summary ---
Author Author [facility] Organization [facility] Address Unknown Phone Unavailable Care Team Providers Care Medicinal Plant Picker Name Role Phone Shahram Mccallum MD PCP Unavailable Reason for Visit * Reason Comments Chest Pain dull ache left chest Shortness of Breath Dizziness Slow Heart Rate reported by home health pul se of 48 Nausea Encounter Details Care Team Description Date Type Department Kentrell Severino MD NO ADDRESS ON FILE Chest Wall Pain 11/28/[address] [facility] Emergency Department [address] [id number] Social History Date Tobacco [...] Signs Reading Time Taken Comments Vital Sign 143/73 11/28/2008 3:41 PM EXTRAS CASTING DIRECTOR Blood Pressure 61 11/28/2008 3:39 PM EXTRAS CASTING DIRECTOR Pulse 36.4 C (97.5 F) 11/28/2008 3:39 PM EXTRAS CASTING DIRECTOR Temperature 21 11/28/2008 3:39 PM EXTRAS CASTING DIRECTOR Respiratory Rate 100% 11/28/2008 4:14 PM EXTRAS CASTING DIRECTOR Oxygen Saturation - - Inhaled Oxygen Concentration - - Weight - - Height - - Body Mass Index documented in this encounter Discharge Instructions * Instructions* Kentrell Severino MD - 11/28/2008 documented in this encounter Medications at Time of Discharge Start Date End Date Medication Sig Dispensed Refills 12/29/2007 BETIMOL 0.5 % OP Drop Administer 1 0 Drop in both eyes 2 times daily. 11/21/2008 04/03/2009 zolpidem (AMBIEN) 10 mg [...] Tb24 mouth 2 times daily. 12/29/2007 10/18/2009 Iewpobr-Gmdqmnulz-Ljlq Take by mouth 0 Oral Tab 2 [...] Procedure Notes * Johnnie Duque Physician - 11/30/2008 2:11 PM EXTRAS CASTING DIRECTOR Associated Order(s): XR CHEST PA OR AP; XR CHEST PA OR AP * David Ferrer MD - 11/30/2008 8:26 AM EXTRAS CASTING DIRECTOR Associated Order(s): EKG 12-LEAD; EKG 12-LEAD [address] [address] EKG OLIVERIO DALTON [id number] 11/28/08 @ 1609 The rhythm is regular, sinus in origin with a rate of 53 beats per minute. Ther e is left axis deviation. R wave transition is delayed across the chest. T waves are flattened to inverted in lateral limb and chest leads. Compared with the pr evious tracing dated 06-29-08, the electrical axis has shifted further leftward currently. R wave transition occurs earlier across the chest previously. Diagnos is: 1) Sinus rhythm, rate 53 beats per minute. 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 3) Nonspecific T wave changes. 4) Clockwise rotation of horizontal electrical axis. Dictated by Bronwyn Dictated by: EKG DD 11/30/08 TD 11/30/08/[facility] EKG REPORT # [id number] ORDER # AS CASTING DIRECTOR documented in this encounter ED Notes * Johnnie Duque Physician - 11/30/2008 9:54 AM EXTRAS CASTING DIRECTOR * Kentrell Severino MD - 11/28/2008 3:58 PM EXTRAS CASTING DIRECTOR HISTORY OF PRESENT ILLNESS Oliverio Dalton, a 58 y.o. male presents to the ED with a Chief Complaint of Ch est Pain, Shortness of Breath, Dizziness, Slow Heart Rate and Nausea Patient is a 58 y.o. male presenting with chest pain, shortness of breath, dizzi ness, and nausea. The history is provided by the patient. Chest Pain This is a recurrent problem. The current episode started 6 to 12 hours ago. The problem occurs hourly. The problem has not changed since onset. Associated With: at rest, lasts about a minute. today made him sweaty. The pain is present in t he substernal region and lateral region (lateral left chest is hurting). The darinel n is at a severity of 2/10. The pain quality is described as sharp. The pain campos s not radiate. The average episode lasts 1 minute. Associated symptoms include n ausea, dizziness and shortness of breath. Pertinent negatives include no fever, no orthopnea, no abdominal pain, no vomiting, no headaches, no back pain, no cou gh, no hemoptysis and no sputum production. Shortness of Breath Associated symptoms include chest pain. Pertinent negatives include no fever, no headaches, no sore throat, no cough, no sputum production, no hemoptysis, no or thopnea, no vomiting, no abdominal pain, no rash and no leg swelling. Dizziness Associated symptoms include chest pain, nausea and dizziness. Pertinent negative s include no fever, no abdominal pain, no vomiting, no congestion, no headaches, no back pain and no focal weakness. Nausea Pertinent negatives include no chills, no fever, no abdominal pain, no headaches and no cough. REVIEW OF SYSTEMS Review of Systems Constitutional: Negative for fever and chills. HENT: Negative for congestion, sore throat and ear discharge. Respiratory: Positive for shortness of breath. Negative for cough, hemoptysis an d sputum production. Cardiovascular: Positive for chest pain. Negative for orthopnea and leg swelling . Gastrointestinal: Positive for nausea. Negative for vomiting, abdominal pain and blood in stool. Genitourinary: Negative for dysuria and frequency. Musculoskeletal: Negative for back pain and joint pain. Skin: Negative for rash. Neurological: Positive for dizziness. Negative for tingling, focal weakness and headaches. PAST MEDICAL [...] Piperacillin-tazobactam, Phenobarbital, Terazosin and Codeine HOME MEDICATIONS zolpidem (AMBIEN) 10 mg Oral Tab Take 1 Tab by mouth nightly as needed for I nsomnia. PROZAC 20 mg Oral Cap Take 20 mg by mouth daily. ACTOS 30 mg Oral Tab Take 30 [...] mg by mouth 2 times d aily. Mjprcck-Tqzdyezwy-Fvkk Oral Tab Take by mouth 2 times [...] P ain. PHYSICAL EXAM Initial Vitals BP 11/28/08 1541 143/73 mmHg Pulse 11/28/08 1539 61 Resp 11/28/08 1539 21 Temp 11/28/08 1539 97.5 F (36.4 C) Temp src 11/28/08 1539 Tympanic SpO2 11/28/08 1539 97 % Physical Exam Nursing note and vitals reviewed. Constitutional: He is oriented. He appears well-developed and well-nourished. No distress. [...] cervical adenopathy. Neurological: He is alert and oriented. No cranial nerve deficit. Skin: Skin is warm and dry. No rash noted. Psychiatric: He has a normal mood and affect. His behavior is normal. Coding DIAGNOSTICS LAB: Results for orders placed during the hospital encounter of 11/28/2008 (from the past 24 hour(s)) COMPREHENSIVE METABOLIC PANEL Component Value Range GLUCOSE 173 (*) 70-110 (mg/dl) BUN 22.0 (*) 7-20 (mg/dl) CREATININE 1.00 0.8-1.3 (mg/dl) BUN/CREAT RATIO 22.0 (*) 10-20 GFR 81 - (ml/min) SODIUM 134 (*) 135-145 (mmol/L) POTASSIUM 4.7 3.3-4.8 (mmol/L) CHLORIDE 101 98-107 (mmol/L) CO2 26.8 22-31 (mmol/L) ANION GAP 11 4-20 CALCIUM 9.2 8.5-10.1 (mg/dl) ALBUMIN 4.2 3.4-5.0 (g/dl) TOTAL PROTEIN 7.1 6.4-8.2 (g/dl) GLOBULIN (CALC) 2.9 - ALBUMIN/GLOBULIN RATIO 1.4 - BILIRUBIN TOTAL 0.3 - (mg/dl) ALKALINE PHOSPHATASE 56 50-136 (IU/L) AST 24 10-40 (IU/L) ALT 42 25-70 (IU/L) CBC WITH DIFFERENTIAL Component Value Range WBC 7.15 3.0-10.4 (x10E3) RBC 4.44 4.15-5.75 (x10E6) HEMOGLOBIN 13.4 (*) 13.8-17.4 (g/dL) HEMATOCRIT 36.6 (*) 38.6-49.4 (%) MCV 82.3 79-100 (fL) MCH 30.2 28-34 (pg) MCHC 36.7 (*) 33-36 (g/dL) RDW 13.8 12.1-14.1 (%) PLATELETS 342 148-408 (x10E3) MPV 7.0 (*) 7.4-10.6 (fL) NEUTROPHILS 64.3 43-73 (%) LYMPHOCYTES 27.2 19-47 (%) MONOCYTES 5.3 3-9 (%) EOSINOPHILS 3.0 0-6 (%) BASOPHILS 0.2 0-1.2 (%) NEUTROPHIL ABSOLUTE 4.60 1.3-7.6 (x10E3) LYMPHOCYTE ABSOLUTE 1.94 0.6-4.9 (x10E3) MONOCYTE ABSOLUTE 0.38 0.1-0.9 (x10E3) EOSINOPHIL ABSOLUTE 0.22 (*) 0.0-0.2 (x10E3) BASOPHILS ABSOLUTE 0.01 0-0.1 (x10E3) BRAIN NATRIURETIC PEPTIDE, BNP OR PROBNP Component Value Range BRAIN NATRIURETIC PEPTIDE 118 0-125 (pg/ml) MYOGLOBIN Component Value Range MYOGLOBIN, PLASMA 36 16-97 (ng/ml) TROPONIN Component Value Range TROPONIN I LESS THAN 0.04 0-0.4 (ng/ml) RADIOLOGY: XR CHEST PA OR AP (Results Pending) negative EKG: No acute changes PROCEDURES MEDICAL DECISION MAKING AND PLAN OF CARE Last vitals BP 143/73 | Pulse 61 | Temp(Src) 97.5 F (36.4 C) (Tympanic) | R barbara 21 | SpO2 100% CLINICAL IMPRESSION Encounter Diagnoses Code Name Primary? Qualifier 786.52Q Chest Wall Pain CASE DISCUSSED PATIENT COUNSELING Diagnostics reviewed and questions answered. Diagnosis, treatment options and p brianna of care discussed with understanding verbalized. DISPOSITION, EDUCATION AND MEDICATION RECONCILIATION Medications reconciled. See after visit summary for patient education on discha rged patients. Enzo tells me his CP is like what he has all the time, almost daily. Never la sts more than a minute and feels like it is under his left breast area. He came to ER as homehealth was worried about his heart rate in the 50s. He is on Toprol . With negative initial enzymes and atypical pain, think he is low risk to go ho me. Will see PCP if increased problems. AS CASTING DIRECTOR * Chanda Arreola, RN - 11/28/2008 3:52 PM EXTRAS CASTING DIRECTOR Pt. Was brought in by private vehicle. States that home health nurse wanted pt. To come into the ER d/t the chest pain/pressure, dizziness, nausea, diaphoresis, SOB, and heart rate of 48. Pt. Having chest pain/pressure on far left side of chest rated 4. No other symptoms present at this time. Heart rate 61. Dr. Pardeep logan notified. AS CASTING DIRECTOR documented in this encounter Plan of Treatment Not on filedocumented as of this encounter Procedures Comments Procedure Name Priority Date/Time Associated Diag nosis EKG 12-LEAD Stat 11/30/2008 8:28 AM EXTRAS CASTING DIRECTOR CARDIAC ENZYMES Stat 11/29/2008 4:00 AM EXTRAS CASTING DIRECTOR XR CHEST PA OR AP 1 VW Stat 11/28/2008 4:06 PM EXTRAS CASTING DIRECTOR CBC WITH DIFFERENTIAL Stat 11/28/2008 3:50 PM EXTRAS CASTING DIRECTOR TROPONIN Stat 11/28/2008 3:50 PM EXTRAS CASTING DIRECTOR BRAIN NATRIURETIC Stat 11/28/2008 PEPTIDE, BNP OR PROBNP 3:50 PM EXTRAS CASTING DIRECTOR MYOGLOBIN Stat 11/28/2008 3:50 PM EXTRAS CASTING DIRECTOR COMPREHENSIVE METABOLIC Stat 11/28/2008 PANEL 3:50 PM EXTRAS CASTING DIRECTOR documented in this encounter Results * EKG 12-LEAD (11/30/2008 8:28 AM EXTRAS CASTING DIRECTOR) Procedure Note David Bernard MD - 11/30/2008 8:26 AM EXTRAS CASTING DIRECTOR [facility]. [address] [place] [address]. [place], [place] [address] EKG OLIVERIO DALTON [id number] 11/28/08 @ 1609 The rhythm is regular, sinus in origin with a rate of 53 beats per minute. There is left axis deviation. R wave transition is delayed across the chest. T waves are flattened to inverted in lateral limb and chest leads. Compared with the previous tracing dated 06-29-08, the electrical axis has shifted further leftward currently. R wave transition occurs earlier across the chest previously. Diagnosis: 1) Sinus rhythm, rate 53 beats per minute. 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 3) Nonspecific T wave changes. 4) Clockwise rotation of horizontal electrical axis. Dictated by S.V.W. Dictated by: EKG DD 11/30/08 TD 11/30/08/[facility] EKG REPORT # [id number] ORDER # * CARDIAC ENZYMES (11/29/2008 4:00 AM EXTRAS CASTING DIRECTOR) [facility] INTERPRETATION See below. [facility] Comment: [facility] INTERPRETATION - 11/29/08 0848 [facility] Normal initial cardiac marker results. Linda Elise. [facility] ACCT#[id number], ,,,, Specimen Blood specimen (specimen) Performing Organization Address [facility] Ph one Number INTERFACE [facility] CLIA# [id number] Leonides JEFFERSON [address] [facility] [address] [place] [address] * XR CHEST PA OR AP (11/28/2008 4:06 PM EXTRAS CASTING DIRECTOR) Specimen Impressions Performed At -- The following data has been recovere d by the [employer] [id number] cleanup utility -- : No acute abnormalities identified in th e chest. Narrative Performed At This result has an attachment that is n ot available. PORTABLE CHEST: INDICATIONS: CHEST PAIN. Comparison is made with 06-28-08. There are postoperative changes of prev ious midline sternotomy noted. There is no evidence of congestive fail ure or acute pneumonia or pleural effusions or pneumothorax identified. Transcriptions 11/30/2008 2:11 PM EXTRAS CASTING DIRECTOR * TROPONIN (11/28/2008 3:50 PM EXTRAS CASTING DIRECTOR) [facility] TROPONIN I LESS THAN 0.04Comment: 0 - 0.4 ng/ml [facility] ACCT#[id number], ,,,, [facility] Specimen Performing Organization Address [facility] Ph one Number INTERFACE SYSTEM [facility] CLIA# [id number] Leonides JEFFERSON [address] [facility] [address] [facility] [place] * MYOGLOBIN (11/28/2008 3:50 PM EXTRAS CASTING DIRECTOR) [facility] MYOGLOBIN, 36Comment: [facility] 16 - 97 ng/ml [facility] ACCT#[id number], ,,,, [place] [facility] Specimen Performing Organization Address [facility] Ph one Number INTERFACE SYSTEM [facility] CLIA# [id number] Leonides JEFFERSON [place] [address] [facility] [address] * BRAIN NATRIURETIC PEPTIDE, BNP OR PROBNP (11/28/2008 3:50 PM EXTRAS CASTING DIRECTOR) Pathologist [facility] BRAIN 118Comment: [place] 0 - 125 pg/ml [facility] NATRIURETIC ACCT#[id number], ,,,, [facility] [place] PEPTIDE [facility] Specimen Blood specimen (specimen) Performing Organization Address City/State/Zipcode Ph one Number INTERFACE SYSTEM [facility] CLIA# [id number] Leonides JEFFERSON [address] [facility] [address] [facility] [place] * CBC WITH DIFFERENTIAL (11/28/2008 3:50 PM EXTRAS CASTING DIRECTOR) [facility] WBC 7.15 3.0 - 10.4 x10E3 [facility] RBC 4.44 4.15 - 5.75 x10E6 [facility] HEMOGLOBIN 13.4 (L) 13.8 - 17.4 g/dL [facility] HEMATOCRIT 36.6 (L) 38.6 - 49.4 % [facility] MCV 82.3 79 - 100 fL [facility] MCH 30.2 28 - 34 pg [facility] MCHC 36.7 (H) 33 - 36 g/dL [facility] RDW 13.8 12.1 - 14.1 % [facility] PLATELETS 342 148 - 408 x10E3 [facility] MPV 7.0 (L) 7.4 - 10.6 fL [facility] NEUTROPHILS 64.3 43 - 73 % [facility] LYMPHOCYTES 27.2 19 - 47 % [facility] MONOCYTES 5.3 3 - 9 % [facility] EOSINOPHILS 3.0 0 - 6 % [facility] BASOPHILS 0.2 0 - 1.2 % [facility] NEUTROPHIL 4.60 1.3 - 7.6 x10E3 [facility] LYMPHOCYTE 1.94 0.6 - 4.9 x10E3 [facility] MONOCYTE 0.38 0.1 - 0.9 x10E3 [facility] EOSINOPHIL 0.22 (H) 0.0 - 0.2 x10E3 [facility] BASOPHILS 0.01Comment: [facility] 0 - 0.1 x10E3 [facility] ABSOLUTE ACCT#[id number], ,,,, [facility] Specimen Blood specimen (specimen) Performing Organization Address City/State/Zipcode Ph one Number INTERFACE SYSTEM [facility] [place]# [id number] Leonides JEFFERSON S [address] [facility] [address] * COMPREHENSIVE METABOLIC PANEL (11/28/2008 3:50 PM EXTRAS CASTING DIRECTOR) GLUCOSE 173 (H) 70 - 110 mg/dl [facility] BUN 22.0 (H) 7 - 20 mg/dl [facility] CREATININE 1.00 0.8 - 1.3 mg/dl [facility] BUN/CREAT RATIO 22.0 (H) 10 - 20 [facility] GFR 81 >90 ml/min [facility] SODIUM 134 (L) 135 - 145 mmol/L [facility] POTASSIUM 4.7 3.3 - 4.8 mmol/L [facility] CHLORIDE 101 98 - 107 mmol/L [facility] CO2 26.8 22 - 31 mmol/L [facility] ANION GAP 11 4 - 20 [facility] CALCIUM 9.2 8.5 - 10.1 mg/dl [facility] ALBUMIN 4.2 3.4 - 5.0 g/dl [facility] TOTAL PROTEIN 7.1 6.4 - 8.2 g/dl [facility] GLOBULIN (CALC) 2.9 [facility] ALBUMIN/GLOBULI 1.4 [facility] BILIRUBIN TOTAL 0.3 <1.1 mg/dl [facility] ALKALINE 56 50 - 136 IU/L [facility] PHOSPHATASE [place] [facility] AST 24 10 - 40 IU/L [facility] ALT 42Comment: [facility] SANCHEZ 25 - 70 IU/L [facility][id number], ,,,, [facility] Specimen Blood specimen (specimen) Performing Organization Address City/State/Zipcode Ph one Number INTERFACE SYSTEM [facility] MARTINEZ# [id number] Leonides JEFFERSON [address] [facility] [address] [facility] [place] documented in this encounter Visit Diagnoses Diagnosis Chest wall pain Painful respiration documented in this encounter Administered Medications Action Date Dose Rate Site Medication Order MAR Action 11/28/2008 4:00 PM EXTRAS CASTING DIRECTOR mL sodium chloride 0.9 % flush injection 3 Given mL 3 mL, IV, DAILY, First dose on Wed11/28/08 at 1600, Until Discontinued, Routine SODIUM CHLORIDE 0.9 % SYRINGE 1 dose, Starting Wed11/28/08 at 1547, Until Wed11/28/08 at 1600, [place] [facility]: Cabinet Override, documented in this encounter"
--- OUTSIDE RECORDS SUMMARY | 2020-03-24 14:47 | XMS REPORT | Encounter Summary ---
Author Author [facility] Organization [facility] Address Unknown Phone Unavailable Care Team Providers Care Talent Solutions Manager Name Role Phone Shahram Mccallum MD PCP Unavailable Reason for Visit * Reason Comments Medication Refill Encounter Details Care Team Description Date Type Department Shahram Mccallum MD NO ADDRESS ON FILE 12/05/2008 Refill [facility] Primar y Care [address] [id number] Social History Date Tobacco Use Types Packs/Day [...]
--- OUTSIDE RECORDS SUMMARY | 2020-03-24 14:48 | XMS REPORT | Encounter Summary ---
Author Author [facility] Organization [facility] Address Unknown Phone Unavailable Care Team Providers Care Nut Sifter Name Role Phone PCP Unavailable Encounter Details Care Team Description Date Type Department Conversion, History 02/22/2008 Orders Only HIS CONVERSION Social History Date Tobacco Use Types Packs/Day Years Used Never Assessed Sex Assigned at Date Recorded Not on file Industry Job Start Date Occupation Not on file Not on file Not on file Travel End Travel History Travel Start No recent travel history available. documented as of this encounter Progress Notes * Bong [place] [facility] Transcriptions - 08/10/2008 4:14 PM CDT 4 :14 PM CDT documented in this encounter Plan of Treatment Not on filedocumented as of this encounter Visit Diagnoses Not on filedocumented in this encounter
--- OUTSIDE RECORDS SUMMARY | 2020-03-24 14:48 | XMS REPORT | Encounter Summary ---
Author Author [facility] Organization [facility] Address Unknown Phone Unavailable Care Team Providers Care Club Concierge Name Role Phone Sharham Mccallum MD PCP Unavailable Claus Couch MD PCP Encounter Details Care Team Description Date Type Department Shahram Mccallum MD NO ADDRESS ON FILE Unspecified Chest Pain (Primary Dx) 06/28/2008 Outpatient [facility] Historical Social History Date Tobacco Use Types Packs/Day [...] Procedure Name Priority Date/Time Associated Diag nosis LIPASE Routine 06/29/2008 3:50 AM CDT PHENYTOIN LEVEL, TOTAL Routine 06/29/2008 3:50 AM CDT LIPID PANEL Routine 06/29/2008 3:50 AM CDT COMPREHENSIVE METABOLIC Routine 06/29/2008 PANEL 3:50 AM CDT CARDIAC ENZYMES Routine 06/28/2008 9:25 PM CDT TROPONIN Routine 06/28/2008 9:25 PM CDT TROPONIN Routine 06/28/2008 3:25 PM CDT TROPONIN Routine 06/28/2008 12:17 PM CDT MYOGLOBIN Routine 06/28/2008 12:17 PM CDT D-DIMER Routine 06/28/2008 9:18 AM CDT CBC WITH MANUAL Routine 06/28/2008 DIFFERENTIAL 9:18 AM CDT TROPONIN Routine 06/28/2008 9:18 AM CDT BRAIN NATRIURETIC Routine 06/28/2008 PEPTIDE, BNP OR PROBNP 9:18 AM CDT MYOGLOBIN Routine 06/28/2008 9:18 AM CDT MAGNESIUM LEVEL Routine 06/28/2008 9:18 AM CDT LIPASE Routine 06/28/2008 9:18 AM CDT AMYLASE Routine 06/28/2008 9:18 AM CDT PHENYTOIN LEVEL, TOTAL Routine 06/28/2008 9:18 AM CDT COMPREHENSIVE METABOLIC Routine 06/28/2008 PANEL 9:18 AM CDT documented in this encounter Results * LIPASE (06/29/2008 3:50 AM CDT) LIPASE 221 114 - 286 U/L INTERFACE SYSTEM Specimen Narrative Performed At COMMENT: FASTING INTERFACE SYSTEM Preop Test? N Performing Organization Address [facility] one Number INTERFACE SYSTEM INTERFACE SYSTEM Refer to clinic/hospital department * PHENYTOIN LEVEL, TOTAL (06/29/2008 3:50 AM CDT) PHENYTOIN TOTAL 16.1 10 - 20 ug/ml INTERFACE SYSTEM Specimen Narrative Performed At COMMENT: FASTING INTERFACE SYSTEM Preop Test? N Performing Organization Address [facility] one Number INTERFACE SYSTEM INTERFACE SYSTEM Refer to clinic/hospital department * LIPID PANEL (06/29/2008 3:50 AM CDT) CHOLESTEROL 215 (H) 140 - 200 mg/dl INTERFACE SYSTEM TRIGLYCERIDE 412 (H) 0 - 199 mg/dl INTERFACE Comment: SYSTEM REFERENCE RANGE - TRIGLYCERIDES NORMAL LESS THAN 150 mg/dl BORDERLINE HIGH 150 - 199 mg/dl HIGH 200 - 499 mg/dl VERY HIGH GREATER THAN OR = 500 mg/dl HDL 33 27 - 67 mg/dl INTERFACE SYSTEM LDL CALCULATED 0 <130 mg/dl INTERFACE Comment: SYSTEM RISK CATEGORY LDL GOAL High risk: <100 mg/dl CHD or CHD risk equivalents (optional goal: <70 mg/dl) (10-year risk > 20%) Moderately high risk <130 mg/dl 2+ risk factors (10-year risk 10% to 20%) Moderate risk: <130 mg/dl 2+ risk factors (10-year risk < 10%) Lower risk: <160 mg/dl 0-1 risk factor Specimen Narrative Performed At COMMENT: FASTING INTERFACE SYSTEM Preop Test? N Performing Organization Address City/State/Zipcode Ph one [facility] INTERFACE SYSTEM INTERFACE SYSTEM Refer to clinic/hospital department * COMPREHENSIVE METABOLIC PANEL (06/29/2008 3:50 AM CDT) GLUCOSE 104 70 - 110 mg/dl INTERFACE SYSTEM BUN 16.0 7 - 20 mg/dl INTERFACE SYSTEM CREATININE 0.87 0.67 - 1.17 mg/dl INTERFACE SYSTEM BUN/CREAT RATIO 18.4 10 - 20 INTERFACE SYSTEM GFR 90 >90 ml/min INTERFACE SYSTEM GFR - CG 126 >90 ml/min INTERFACE FORMULA SYSTEM SODIUM 141 135 - 145 mmol/L INTERFACE SYSTEM POTASSIUM 3.8 3.3 - 4.8 mmol/L INTERFACE SYSTEM CHLORIDE 108 (H) 98 - 107 mmol/L INTERFACE SYSTEM CO2 27.4 22 - 31 mmol/L INTERFACE SYSTEM ANION GAP 9 4 - 20 INTERFACE SYSTEM CALCIUM 8.2 (L) 8.5 - 10.1 mg/dl INTERFACE SYSTEM ALBUMIN 3.5 3.4 - 5.0 g/dl INTERFACE SYSTEM TOTAL PROTEIN 5.8 (L) 6.4 - 8.2 g/dl INTERFACE SYSTEM GLOBULIN (CALC) 2.4 INTERFACE SYSTEM ALBUMIN/GLOBULI 1.4 INTERFACE N RATIO SYSTEM BILIRUBIN TOTAL 0.2 <1.1 mg/dl INTERFACE SYSTEM ALKALINE 47 (L) 50 - 136 IU/L INTERFACE PHOSPHATASE SYSTEM AST 17 10 - 40 IU/L INTERFACE SYSTEM ALT 29 25 - 70 IU/L INTERFACE SYSTEM Specimen Narrative Performed At COMMENT: FASTING INTERFACE SYSTEM Preop Test? N Performing Organization Address [facility] INTERFACE SYSTEM INTERFACE SYSTEM Refer to clinic/hospital department * CARDIAC ENZYMES (06/28/2008 9:25 PM CDT) Pathologist [facility] INTERPRETATION See below. INTERFACE Comment: SYSTEM INTERPRETATION - 06/29/08 0812 Normal cardiac marker series, no evidence of acute myocardial infarction. Linda Elise. Specimen Narrative Performed At CARDIAC TROP-12HR TROP-12 HR from [id number]. INT ERFACE SYSTEM CARDIAC Final: FINAL from [id number] . Performing Organization Address [facility] one Number INTERFACE SYSTEM INTERFACE SYSTEM Refer to clinic/hospital department * TROPONIN (06/28/2008 9:25 PM CDT) Pathologist [facility] TROPONIN I 0.06 0 - 0.4 ng/ml INTERFACE SYSTEM Specimen Narrative Performed At CARDIAC TROP-12HR TROP-12 HR from [id number]. INT ERFACE SYSTEM CARDIAC Final: FINAL from [id number] . Performing Organization Address [facility] one Number INTERFACE SYSTEM INTERFACE SYSTEM Refer to clinic/hospital department * TROPONIN (06/28/2008 3:25 PM CDT) TROPONIN I LESS THAN 0.04 0 - 0.4 ng/ml INTERFACE SYSTEM Specimen Narrative Performed At CARDIAC TROP-6HR TROP-6 HR from [id number]. INTER FACE SYSTEM CARDIAC Interim: CAR6 from [id number]. Performing Organization Address [facility] one Number INTERFACE SYSTEM INTERFACE SYSTEM Refer to clinic/hospital department * TROPONIN (06/28/2008 12:17 PM CDT) TROPONIN I LESS THAN 0.04 0 - 0.4 ng/ml INTERFACE SYSTEM Specimen Narrative Performed At CARDIAC NYLA-3HR NYLA-3 HR from [id number]. INTERFA CE SYSTEM CARDIAC TROP-3HR TROP-3 HR from [id number]. CARDIAC Interim: CAR3 from 820:[id number] S. Performing Organization Address [facility] one Number INTERFACE SYSTEM INTERFACE SYSTEM Refer to clinic/hospital department * MYOGLOBIN (06/28/2008 12:17 PM CDT) MYOGLOBIN, 51 16 - 97 ng/ml INTERFACE PLASMA SYSTEM Specimen Narrative Performed At CARDIAC NYLA-3HR NYLA-3 HR from [id number]. INTERFA CE SYSTEM CARDIAC TROP-3HR TROP-3 HR from 820:[id number]. CARDIAC Interim: CAR3 from 820:[id number] S. Performing Organization Address [facility] one Number INTERFACE SYSTEM INTERFACE SYSTEM Refer to clinic/hospital department * D-DIMER (06/28/2008 9:18 AM CDT) D-DIMER QUANT <100.0 (L) 100 - 400 ng/mL INTERFACE Comment: SYSTEM 90% of patients testing below 400 ng/ml have proven negative for Thromboembolic Events. Specimen Performing Organization Address [facility] one Number INTERFACE SYSTEM INTERFACE SYSTEM Refer to clinic/hospital department * CBC WITH MANUAL DIFFERENTIAL (06/28/2008 9:18 AM CDT) WBC 7.90 3.0 - 10.4 x10E3 INTERFACE SYSTEM RBC 4.47 4.15 - 5.75 x10E6 INTERFACE SYSTEM HEMOGLOBIN 13.1 (L) 13.8 - 17.4 g/dL INTERFACE SYSTEM HEMATOCRIT 38.5 (L) 38.6 - 49.4 % INTERFACE SYSTEM MCV 86.3 79 - 100 fL INTERFACE SYSTEM MCH 29.4 28 - 34 pg INTERFACE SYSTEM MCHC 34.1 33 - 36 g/dL INTERFACE SYSTEM RDW 14.1 12.1 - 14.1 % INTERFACE SYSTEM PLATELETS 418 (H) 148 - 408 x10E3 INTERFACE SYSTEM MPV 7.6 7.4 - 10.6 fL INTERFACE SYSTEM NEUTROPHILS 61.4 43 - 73 % INTERFACE SYSTEM LYMPHOCYTES 29.9 19 - 47 % INTERFACE SYSTEM MONOCYTES 5.6 3 - 9 % INTERFACE SYSTEM EOSINOPHILS 2.7 0 - 6 % INTERFACE SYSTEM BASOPHILS 0.4 0 - 1.2 % INTERFACE SYSTEM NEUTROPHIL 4.85 1.3 - 7.6 x10E3 INTERFACE ABSOLUTE SYSTEM LYMPHOCYTE 2.36 0.6 - 4.9 x10E3 INTERFACE ABSOLUTE SYSTEM MONOCYTE 0.44 0.1 - 0.9 x10E3 INTERFACE ABSOLUTE SYSTEM EOSINOPHIL 0.22 (H) 0.0 - 0.2 x10E3 INTERFACE ABSOLUTE SYSTEM BASOPHILS 0.03 0 - 0.1 x10E3 INTERFACE ABSOLUTE SYSTEM EOSINOPHILS 3 0 - 8 % INTERFACE SYSTEM NEUTROPHILS, 57 30 - 68 % INTERFACE SEG SYSTEM LYMPHOCYTES 34 14 - 50 % INTERFACE SYSTEM MONOCYTE 6 0 - 11 % INTERFACE SYSTEM PLATELET EST. Normal INTERFACE SYSTEM WBC ESTIMATE Normal INTERFACE SYSTEM Specimen Performing Organization Address [facility] one Number INTERFACE SYSTEM INTERFACE SYSTEM Refer to clinic/hospital department * LIPASE (06/28/2008 9:18 AM CDT) LIPASE 317 (H) 114 - 286 U/L INTERFACE SYSTEM Specimen Performing Organization Address [facility] one Number INTERFACE SYSTEM INTERFACE SYSTEM Refer to clinic/hospital department * PHENYTOIN LEVEL, TOTAL (06/28/2008 9:18 AM CDT) PHENYTOIN TOTAL 21.7 (H) 10 - 20 ug/ml INTERFACE SYSTEM Specimen Performing Organization Address [facility] one Number INTERFACE SYSTEM INTERFACE SYSTEM Refer to clinic/hospital department * AMYLASE (06/28/2008 9:18 AM CDT) AMYLASE 78 25 - 115 IU/L INTERFACE SYSTEM Specimen Performing Organization Address [facility] one Number INTERFACE SYSTEM INTERFACE SYSTEM Refer to clinic/hospital department * TROPONIN (06/28/2008 9:18 AM CDT) TROPONIN I 0.05 0 - 0.4 ng/ml INTERFACE SYSTEM Specimen Narrative Performed At CARDIAC NYLA-0HR NYLA-0 HR from [facility]:[id number]. INTERFA CE SYSTEM CARDIAC TROP-0HR TROP-0 HR from :[id number]. Performing Organization Address [facility] one Number INTERFACE SYSTEM INTERFACE SYSTEM Refer to clinic/hospital department * MYOGLOBIN (06/28/2008 9:18 AM CDT) MYOGLOBIN, 42 16 - 97 ng/ml INTERFACE PLASMA SYSTEM Specimen Narrative Performed At CARDIAC NYLA-0HR NYLA-0 HR from :[id number]. INTERFA CE SYSTEM CARDIAC TROP-0HR TROP-0 HR from :[id number]. Performing Organization Address [facility] one Number INTERFACE SYSTEM INTERFACE SYSTEM Refer to clinic/hospital department * BRAIN NATRIURETIC PEPTIDE, BNP OR PROBNP (06/28/2008 9:18 AM CDT) BRAIN 261 (H) 0 - 125 pg/ml INTERFACE NATRIURETIC SYSTEM PEPTIDE Specimen Performing Organization Address [facility] one Number INTERFACE SYSTEM INTERFACE SYSTEM Refer to clinic/hospital department * MAGNESIUM LEVEL (06/28/2008 9:18 AM CDT) MAGNESIUM 1.6 (L) 1.8 - 2.4 mg/dl INTERFACE SYSTEM Specimen Performing Organization Address [facility] one Number INTERFACE SYSTEM INTERFACE SYSTEM Refer to clinic/hospital department * COMPREHENSIVE METABOLIC PANEL (06/28/2008 9:18 AM CDT) GLUCOSE 122 (H) 70 - 110 mg/dl INTERFACE SYSTEM BUN 21.0 (H) 7 - 20 mg/dl INTERFACE SYSTEM CREATININE 0.90 0.67 - 1.17 mg/dl INTERFACE SYSTEM BUN/CREAT RATIO 23.3 (H) 10 - 20 INTERFACE SYSTEM GFR 87 >90 ml/min INTERFACE SYSTEM SODIUM 138 135 - 145 mmol/L INTERFACE SYSTEM POTASSIUM 4.3 3.3 - 4.8 mmol/L INTERFACE SYSTEM CHLORIDE 101 98 - 107 mmol/L INTERFACE SYSTEM CO2 26.7 22 - 31 mmol/L INTERFACE SYSTEM ANION GAP 15 4 - 20 INTERFACE SYSTEM CALCIUM 8.9 8.5 - 10.1 mg/dl INTERFACE SYSTEM ALBUMIN 4.5 3.4 - 5.0 g/dl INTERFACE SYSTEM TOTAL PROTEIN 7.6 6.4 - 8.2 g/dl INTERFACE SYSTEM GLOBULIN (CALC) 3.1 INTERFACE SYSTEM ALBUMIN/GLOBULI 1.5 INTERFACE N RATIO SYSTEM BILIRUBIN TOTAL 0.3 <1.1 mg/dl INTERFACE SYSTEM ALKALINE 58 50 - 136 IU/L INTERFACE PHOSPHATASE SYSTEM AST 23 10 - 40 IU/L INTERFACE SYSTEM ALT 36 25 - 70 IU/L INTERFACE SYSTEM Specimen Performing Organization Address City/State/Zipcode Ph one Number INTERFACE SYSTEM INTERFACE SYSTEM Refer to clinic/hospital department documented in this encounter Visit Diagnoses Diagnosis Chest pain, unspecified - Primary documented in this encounter
--- OUTSIDE RECORDS SUMMARY | 2020-03-24 14:48 | XMS REPORT | Encounter Summary ---
Author Author [facility] Organization [facility] Address Unknown Phone Unavailable Care Team Providers Care Trim Operator Name Role Phone Shahram Mccallum MD PCP Unavailable Claus Couch MD PCP Encounter Details Care Team Description Date Type Department Shahram Mccallum MD NO ADDRESS ON FILE Cor Athrscl-Uns Vessel (Primary Dx) 07/02/2008 Outpatient [facility] Consol idated Historical [facility] [address] [place] [address] Social History Date Tobacco Use Types Packs/Day [...] Coronary atherosclerosis of unspecified type of vessel, [place] or graft - Primary documented in this encounter
--- OUTSIDE RECORDS SUMMARY | 2020-03-24 14:48 | XMS REPORT | Encounter Summary ---
Author Author [facility] Organization [facility] Address Unknown Phone Unavailable Care Team Providers Care Corporate Coordinator Name Role Phone Shahram Mccallum MD PCP Unavailable Claus Couch MD PCP Encounter Details Care Team Description Date Type Department Walter Oconnor MD [address] [facility] [address] [place] [address] No Proc for Reasons NEC (Primary Dx) 03/05/2008 Outpatient [facility] Historical [employer] Social History Date Tobacco Use Types Packs/Day Years Used Never Assessed Sex Assigned at Date Recorded Not on file Industry Job Start Date Occupation Not on file Not on file Not on file Travel End Travel History Travel Start No recent travel history available. documented as of this encounter Plan of Treatment Not on filedocumented as of this encounter Visit Diagnoses Diagnosis No proc for reasons NEC - Primary Procedure not carried out for other sue sons documented in this encounter
--- OUTSIDE RECORDS SUMMARY | 2020-03-24 14:48 | XMS REPORT | Encounter Summary ---
Author Author [facility] Organization [facility] Address Unknown Phone Unavailable Care Team Providers Care First Officer Name Role Phone Shahram Mccallum MD PCP Unavailable Claus Couch MD PCP Encounter Details Care Team Description Date Type Department Shahram Mccallum MD NO ADDRESS ON FILE Other Convulsions (Primary Dx) 06/28/2008 Outpatient [facility] [address] [place] [address] Social History Date Tobacco Use [...]
--- OUTSIDE RECORDS SUMMARY | 2020-03-24 14:48 | XMS REPORT | Encounter Summary ---
Author Author [facility] Organization [facility] Address Unknown Phone Unavailable Care Team Providers Care Medical Assistant Ob Gyn Name Role Phone Shahram Mccallum MD PCP Unavailable Claus Couch MD PCP Encounter Details Care Team Description Date Type Department Shahram Mccallum MD NO ADDRESS ON FILE DM Manif NEC Type II (Primary Dx) 02/27/2008 Outpatient [facility] Historical Social History Date Tobacco Use Types [...] of this encounter Visit Diagnoses Diagnosis Type II or unspecified type diabetes me llitus with other specified manifestations, not stated as uncontrolled - Primary documented in this encounter
--- OUTSIDE RECORDS SUMMARY | 2020-03-24 14:48 | XMS REPORT | Encounter Summary ---
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 documented as of this encounter Plan of Treatment Not on filedocumented as of this encounter Visit Diagnoses Diagnosis Benign neoplasm of colon - Primary documented in this encounter
--- OUTSIDE RECORDS SUMMARY | 2020-03-24 14:48 | XMS REPORT | Encounter Summary ---
Author Author [facility] Organization [facility] Address Unknown Phone Unavailable Care Team Providers Care Instructor Military Science Name Role Phone Shahram Mccallum MD PCP Unavailable Reason for Visit * Reason Comments Skin Problem sores Encounter Details Care Team Description Date Type Department Shahram Mccallum MD NO ADDRESS ON FILE Cellulitis and Abscess of Upper Arm and Forearm; Acute URI 08/24/2008 [facility] [address] [place] [address] Social History Date Tobacco Use [...] Reading Time Taken Comments Vital Sign 116/60 08/24/2008 2:24 PM CDT Blood Pressure 64 08/24/2008 2:24 PM CDT Pulse 36.2 C (97.1 F) 08/24/2008 2:24 PM CDT Temperature - - Respiratory Rate - - Oxygen Saturation - - Inhaled Oxygen Concentration - - Weight - - Height - - Body Mass Index documented in this encounter Progress Notes * Shahram Mccallum MD - 08/26/2008 4:22 PM CDT HISTORY OF PRESENT ILLNESS Oliverio Dalton, a 57 y.o. male. HPI Comments: Several days developing sores on both arms lft more than rt. No i tch. Thought from dog scratches. Now scabbing and sl weeping. Otherwise reasona masood good as relates to chronic ill. REVIEW OF SYSTEMS Review of Systems Constitutional: Negative. Respiratory: Negative. Cardiovascular: Negative. Gastrointestinal: Negative. Musculoskeletal: Negative. Skin: Negative for rash. PHYSICAL EXAM BP 116/60 | Pulse 64 | Temp 97.1 F (36.2 C) Physical Exam Constitutional: He appears well-developed. HENT: Head: Normocephalic. Mouth/Throat: Oropharyngeal exudate (nasal and pharynx congested) present. Cardiovascular: Normal rate and regular rhythm. Exam reveals no gallop. Murmur heard. Skin: Skin is warm. Rash (on exposed area of arms, superficial ulcers, sl cruste d, not erythematous) noted. ASSESSMENT and PLAN: Encounter Diagnoses Code Name Primary? Qualifier 682.3 Cellulitis and Abscess of Upper Arm and Forearm 465.9C Acute URI documented in this encounter Plan of Treatment Not on filedocumented as of this encounter Visit Diagnoses Diagnosis Cellulitis and abscess of upper arm and forearm Acute URI Acute upper respiratory infections of u nspecified site documented in this encounter"
--- OUTSIDE RECORDS SUMMARY | 2020-03-24 14:48 | XMS REPORT | Encounter Summary ---
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 documented as of this encounter Plan of Treatment Not on filedocumented as of this encounter Visit Diagnoses Diagnosis Paralytic ptosis - Primary documented in this encounter
--- OUTSIDE RECORDS SUMMARY | 2020-03-24 14:48 | XMS REPORT | Encounter Summary ---
Author Author [facility] Organization [facility] Address Unknown Phone Unavailable Care Team Providers Care Chip Silo Tender Name Role Phone PCP Unavailable Encounter Details Care Team Description Date Type Department Conversion, History 05/05/2008 Orders Only HIS CONVERSION Social History Date Tobacco Use Types Packs/Day Years Used Never Assessed Sex Assigned at Date Recorded Not on file Industry Job Start Date Occupation Not on file Not on file Not on file Travel End Travel History Travel Start No recent travel history available. documented as of this encounter Progress Notes * Bong El Conv Transcriptions - 08/10/2008 4:15 PM CDT 4 :15 PM CDT documented in this encounter Plan of Treatment Not on filedocumented as of this encounter Visit Diagnoses Not on filedocumented in this encounter
--- OUTSIDE RECORDS SUMMARY | 2020-03-24 14:48 | XMS REPORT | Encounter Summary ---
Author Author [facility] Organization [facility] Address Unknown Phone Unavailable Care Team Providers Care Grant Specialist Name Role Phone Shahram Mccallum MD PCP Unavailable Claus Couch MD PCP Encounter Details Care Team Description Date Type Department Shahram Mccallum MD NO ADDRESS ON FILE Unspecified Essential Hypertension (Prim rolando Dx) 07/02/2008 Outpatient HIS [facility] [address] [facility] Historical MEDICAID Social History Date Tobacco Use Types Packs/Day [...] Date/Time Associated Diag nosis MAGNESIUM LEVEL Routine 07/02/2008 9:30 AM CDT documented in this encounter Results * MAGNESIUM LEVEL (07/02/2008 9:30 AM CDT) MAGNESIUM 1.6 (L) 1.8 - 2.4 mg/dl INTERFACE SYSTEM Specimen Performing Organization Address City/State/Zipcode Ph one Number INTERFACE SYSTEM INTERFACE SYSTEM Refer to clinic/hospital department documented in this encounter Visit Diagnoses Diagnosis Unspecified essential hypertension - Pr imary documented in this encounter
--- OUTSIDE RECORDS SUMMARY | 2020-03-24 14:48 | XMS REPORT | Encounter Summary ---
Author Author [facility] Organization [facility] Address Unknown Phone Unavailable Care Team Providers Care Sales Associate Cashier Name Role Phone Shahram Mccallum MD PCP Unavailable Claus Couch MD PCP Encounter Details Care Team Description Date Type Department Heath Julien ARNP [address] [place] [address] Angioneurotic Edema (Primary Dx) 05/05/2008 Emergency [facility] Emergency Department [address] [address] Social History Date Tobacco Use [...] as of this encounter Visit Diagnoses Diagnosis Angioneurotic edema - Primary Angioneurotic edema not elsewhere class ified documented in this encounter
--- OUTSIDE RECORDS SUMMARY | 2020-03-24 14:48 | XMS REPORT | Encounter Summary ---
Author Author [facility] Organization [facility] Address Unknown Phone Unavailable Care Team Providers Care Computer Repairer Name Role Phone Shahram Mccallum MD PCP Unavailable Claus Couch MD PCP Encounter Details Care Team Description Date Type Department Shahram Mccallum MD NO ADDRESS ON FILE 07/27/2008 Outpatient [facility] Historical Social [...]
--- OUTSIDE RECORDS SUMMARY | 2020-03-24 14:48 | XMS REPORT | Encounter Summary ---
Author Author [facility] Organization [facility] Address Unknown Phone Unavailable Care Team Providers Care Increment Manager Name Role Phone Shahram Mccallum MD PCP Unavailable Claus Couch MD PCP Encounter Details Care Team Description Date Type Department Leisure, Sybil Cid, OPERATIONS MANAGER/COORDINATOR NO ADDRESS ON FILE Cellulitis and Abscess of Unspecified Si te (Primary Dx) 05/08/2008 Outpatient [facility] [address] [phone] Social History Date Tobacco Use Types Packs/Day [...] Visit Diagnoses Diagnosis Cellulitis and abscess of unspecified s ite - Primary documented in this encounter
--- OUTSIDE RECORDS SUMMARY | 2020-03-24 14:48 | XMS REPORT | Encounter Summary ---
Author Author [facility] Organization [facility] Address Unknown Phone Unavailable Care Team Providers Care Director Of Partnerships Name Role Phone Shahram Mccallum MD PCP Unavailable Claus Couch MD PCP Encounter Details Care Team Description Date Type Department Leisure, Sybil Cid, HAND PROFILER NO ADDRESS ON FILE Cellulitis and Abscess of Unspecified Si te (Primary Dx) 05/08/2008 Outpatient [facility] [address] [phone] Social History Date Tobacco Use Types Packs/Day [...]
--- OUTSIDE RECORDS SUMMARY | 2020-03-24 14:48 | XMS REPORT | Encounter Summary ---
Author Author [facility] Organization [facility] Address Unknown Phone Unavailable Care Team Providers Care Pollution Control Engineer Name Role Phone PCP Unavailable Encounter Details Care Team Description Date Type Department Conversion, History 02/27/2008 Orders Only HIS CONVERSION Social History Date [...]
--- OUTSIDE RECORDS SUMMARY | 2020-03-24 14:48 | XMS REPORT | Encounter Summary ---
Author Author [facility] Address Unknown Phone Unavailable Care Team Providers Care Pilot Manager Name Role Phone PCP Unavailable Encounter Details Care Team Description Date Type Department Conversion, History 07/02/2008 Orders Only HIS CONVERSION Social History Date Tobacco Use Types Packs/Day Years Used Never Assessed Sex Assigned at Date Recorded Not on file Industry Job Start Date Occupation Not on file Not on file Not on file Travel End Travel History Travel Start No recent travel history available. documented as of this encounter Progress Notes * Interface, Bong Aguilera Conv Transcriptions - 08/13/2008 4:28 AM CDT 4 :28 AM CDT * Interface, [employer]ong [employer] Conv Transcriptions - 08/10/2008 4:15 PM CDT Electronically signed by Interface, [facility] [employer] Conv Transcriptions at 08/10/2008 4 :15 PM CDT documented in this encounter Plan of Treatment Not on filedocumented as of this encounter Visit Diagnoses Not on filedocumented in this encounter
--- OUTSIDE RECORDS SUMMARY | 2020-03-24 14:48 | XMS REPORT | Encounter Summary ---
Author Author [facility] Organization [facility] Address Unknown Phone Unavailable Care Team Providers Care Nuclear Waste Management Engineer Name Role Phone Shahram Mccallum MD PCP Unavailable Reason for Visit * Reason Comments Medication Refill Encounter Details Care Team Description Date Type Department Briseida Rodriguez, Mirror Machine Feeder 08/29/2008 Refill [facility] [address] [phone] Social History Date Tobacco Use Types Packs/Day [...]
--- OUTSIDE RECORDS SUMMARY | 2020-03-24 14:48 | XMS REPORT | Encounter Summary ---
Author Author [facility] Organization [facility] Address Unknown Phone Unavailable Care Team Providers Care Reed Press Feeder Name Role Phone PCP Unavailable Encounter Details Care Team Description Date Type Department Provider, Abstract 02/27/2008 Abstract [facility] ABSTRACTION Social History Date Tobacco Use Types Packs/Day Years Used Never Assessed Sex Assigned at Date Recorded Not on file Industry Job Start Date Occupation Not on file Not on file Not on file Travel End Travel History Travel Start No recent travel history available. documented as of this encounter Last Filed Vital Signs Reading Time Taken Comments Vital Sign 102/64 02/27/2008 9:06 AM CDT Blood Pressure 72 02/27/2008 9:06 AM CDT Pulse - - Temperature - - Respiratory Rate - - Oxygen Saturation - - Inhaled Oxygen Concentration 98.4 kg (217 lb) 02/27/2008 9:06 AM CDT Weight - - Height - - Body Mass Index documented in this encounter Plan of Treatment Not on filedocumented as of this encounter Visit Diagnoses Not on filedocumented in this encounter
--- OUTSIDE RECORDS SUMMARY | 2020-03-24 14:48 | XMS REPORT | Encounter Summary ---
Author Author [facility] Organization [facility] Address Unknown Phone Unavailable Care Team Providers Care Tube Tester Name Role Phone PCP Unavailable Encounter Details Care Team Description Date Type Department Conversion, History 05/08/2008 Orders Only HIS CONVERSION Social History Date [...]
--- OUTSIDE RECORDS SUMMARY | 2020-03-24 14:48 | XMS REPORT | Encounter Summary ---
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
--- OUTSIDE RECORDS SUMMARY | 2020-03-24 14:48 | XMS REPORT | Encounter Summary ---
Author Author [facility] Organization [facility] Address Unknown Phone Unavailable Care Team Providers Care Powderer Name Role Phone Shahram Mccallum MD PCP Unavailable Reason for Visit * Reason Comments Medication Refill Encounter Details Care Team Description Date Type Department Briseida Rodriguez, Setter Automatic Spinning Lathe 09/04/2008 Refill [facility] [address] [phone] Social History Date Tobacco Use Types Packs/Day [...]
--- OUTSIDE RECORDS SUMMARY | 2020-03-24 14:48 | XMS REPORT | Encounter Summary ---
Author Author [facility] Organization [facility] Address Unknown Phone Unavailable Care Team Providers Care Utility Worker Driver Name Role Phone PCP Unavailable Encounter Details Care Team Description Date Type Department Conversion, History 06/28/2008 Orders Only HIS CONVERSION Social History Date [...]
--- OUTSIDE RECORDS SUMMARY | 2020-03-24 14:48 | XMS REPORT | Encounter Summary ---
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 Outpatient [facility] [address] [place] Historical MEDICAID Social History Date Tobacco Use [...] Name Priority Date/Time Associated Diag nosis URINALYSIS W/REFLEX Routine 02/27/2008 MICROSCOPIC 8:55 AM CDT CBC WITHOUT DIFFERENTIAL Routine 02/27/2008 8:55 AM CDT COMPREHENSIVE METABOLIC Routine 02/27/2008 PANEL 8:55 AM CDT documented in this encounter Results * URINALYSIS (02/27/2008 8:55 AM CDT) GLUCOSE UA Negative Negative mg/dl INTERFACE SYSTEM BILIRUBIN UA Negative Negative INTERFACE SYSTEM KETONES UA Negative Negative mg/dl INTERFACE SYSTEM SPECIFIC 1.015 INTERFACE GRAVITY UA SYSTEM PH UA 7.0 INTERFACE SYSTEM PROTEIN UA Negative Negative mg/dl INTERFACE SYSTEM UROBILINOGEN UA 0.2 0.2 - 1.0 EU/dl INTERFACE SYSTEM NITRITE UA Negative Negative INTERFACE SYSTEM BLOOD UA Small (H) Negative INTERFACE SYSTEM LEUKOCYTE Negative Negative INTERFACE ESTERASE UA SYSTEM WBC UA Negative 0 - 5 /HPF INTERFACE SYSTEM RBC UA 5-10 (H) 0 - 3 /HPF INTERFACE SYSTEM EPITHELIAL rare sq INTERFACE CELLS, URINE SYSTEM WBC CLUMPS Neg Negative /LPF INTERFACE SYSTEM CASTS, URINE Neg 0-4 Hyaline /LPF INTERFACE SYSTEM CRYSTALS, URINE Neg INTERFACE SYSTEM BACTERIA UA RARE NEG INTERFACE SYSTEM Specimen Narrative Performed At FASTING INTERFACE SYSTEM Performing Organization Address [facility] one Number INTERFACE SYSTEM INTERFACE SYSTEM Refer to clinic/hospital department * CBC WITHOUT DIFFERENTIAL (02/27/2008 8:55 AM CDT) WBC 4.24 3.0 - 10.4 x10E3 INTERFACE SYSTEM RBC 3.74 (L) 4.15 - 5.75 x10E6 INTERFACE SYSTEM HEMOGLOBIN 11.6 (L) 13.8 - 17.4 g/dL INTERFACE SYSTEM HEMATOCRIT 32.7 (L) 38.6 - 49.4 % INTERFACE SYSTEM MCV 87.6 79 - 100 fL INTERFACE SYSTEM MCH 31.0 28 - 34 pg INTERFACE SYSTEM MCHC 35.4 33 - 36 g/dL INTERFACE SYSTEM RDW 13.8 12.1 - 14.1 % INTERFACE SYSTEM PLATELETS 313 148 - 408 x10E3 INTERFACE SYSTEM MPV 7.7 7.4 - 10.6 fL INTERFACE SYSTEM Specimen Narrative Performed At FASTING INTERFACE SYSTEM Performing Organization Address [facility] one Number INTERFACE SYSTEM INTERFACE SYSTEM Refer to clinic/hospital department * COMPREHENSIVE METABOLIC PANEL (02/27/2008 8:55 AM CDT) GLUCOSE 92 70 - 110 mg/dl INTERFACE SYSTEM BUN 17.0 7 - 20 mg/dl INTERFACE SYSTEM CREATININE 0.9 0.8 - 1.3 mg/dl INTERFACE SYSTEM BUN/CREAT RATIO 18.9 10 - 20 INTERFACE SYSTEM GFR 92 >90 ml/min INTERFACE SYSTEM SODIUM 138 135 - 145 mmol/L INTERFACE SYSTEM POTASSIUM 4.2 3.3 - 4.8 mmol/L INTERFACE SYSTEM CHLORIDE 104 98 - 107 mmol/L INTERFACE SYSTEM CO2 27.0 22 - 31 mmol/L INTERFACE SYSTEM ANION GAP 11 4 - 20 INTERFACE SYSTEM CALCIUM 8.9 8.5 - 10.1 mg/dl INTERFACE SYSTEM ALBUMIN 3.9 3.4 - 5.0 g/dl INTERFACE SYSTEM TOTAL PROTEIN 6.9 6.4 - 8.2 g/dl INTERFACE SYSTEM GLOBULIN (CALC) 3.0 INTERFACE SYSTEM ALBUMIN/GLOBULI 1.3 INTERFACE N RATIO SYSTEM BILIRUBIN TOTAL 0.3 <1.1 mg/dl INTERFACE SYSTEM ALKALINE 44 (L) 50 - 136 IU/L INTERFACE PHOSPHATASE SYSTEM AST 22 10 - 40 IU/L INTERFACE SYSTEM ALT 36 25 - 70 IU/L INTERFACE SYSTEM Specimen Narrative Performed At FASTING INTERFACE SYSTEM Performing Organization Address City/State/Zipcode Ph one Number INTERFACE SYSTEM INTERFACE SYSTEM Refer to clinic/hospital department documented in this encounter Visit Diagnoses Diagnosis Benign neoplasm of colon - Primary documented in this encounter
--- OUTSIDE RECORDS SUMMARY | 2020-03-24 14:49 | XMS REPORT | Encounter Summary ---
Author Author [facility] Organization [facility] Address Unknown Phone Unavailable Care Team Providers Care Veterinary Anatomist Name Role Phone Shahram Mccallum MD PCP Unavailable Claus Couch MD PCP Encounter Details Care Team Description Date Type Department Shahram Mccallum MD NO ADDRESS ON FILE Urinary Tract Infection, Site not Specif ied (Primary Dx) 02/11/2008 Inpatient [facility] SURG TELEME TRY Historical Social History Date Tobacco Use Types [...] Name Priority Date/Time Associated Diag nosis CBC WITHOUT DIFFERENTIAL Routine 02/14/2008 5:40 AM CDT CBC WITHOUT DIFFERENTIAL Routine 02/13/2008 2:35 PM CDT OCCULT BLOOD GUAIAC Routine 02/13/2008 DIAGNOSTIC LIPID PANEL Routine 02/12/2008 4:55 AM CDT URINALYSIS W/REFLEX Routine 02/11/2008 MICROSCOPIC 10:20 PM CDT CARDIAC ENZYMES Routine 02/11/2008 9:40 PM CDT TROPONIN Routine 02/11/2008 9:40 PM CDT TROPONIN Routine 02/11/2008 3:40 PM CDT TROPONIN Routine 02/11/2008 12:44 PM CDT MYOGLOBIN Routine 02/11/2008 12:44 PM CDT CBC WITH MANUAL Routine 02/11/2008 DIFFERENTIAL 9:35 AM CDT TROPONIN Routine 02/11/2008 9:35 AM CDT BRAIN NATRIURETIC Routine 02/11/2008 PEPTIDE, BNP OR PROBNP 9:35 AM CDT MYOGLOBIN Routine 02/11/2008 9:35 AM CDT MAGNESIUM LEVEL Routine 02/11/2008 9:35 AM CDT COMPREHENSIVE METABOLIC Routine 02/11/2008 PANEL 9:35 AM CDT documented in this encounter Results * CBC WITHOUT DIFFERENTIAL (02/14/2008 5:40 AM CDT) WBC 5.76 3.0 - 10.4 x10E3 INTERFACE SYSTEM RBC 4.21 4.15 - 5.75 x10E6 INTERFACE SYSTEM HEMOGLOBIN 12.7 (L) 13.8 - 17.4 g/dL INTERFACE SYSTEM HEMATOCRIT 36.0 (L) 38.6 - 49.4 % INTERFACE SYSTEM MCV 85.5 79 - 100 fL INTERFACE SYSTEM MCH 30.2 28 - 34 pg INTERFACE SYSTEM MCHC 35.3 33 - 36 g/dL INTERFACE SYSTEM RDW 14.6 (H) 12.1 - 14.1 % INTERFACE SYSTEM PLATELETS 379 148 - 408 x10E3 INTERFACE SYSTEM MPV 8.4 7.4 - 10.6 fL INTERFACE SYSTEM Specimen Performing Organization Address City/State/Zipcode Ph one Number INTERFACE SYSTEM INTERFACE SYSTEM Refer to clinic/hospital department * CBC WITHOUT DIFFERENTIAL (02/13/2008 2:35 PM CDT) WBC 5.24 3.0 - 10.4 x10E3 INTERFACE SYSTEM RBC 3.89 (L) 4.15 - 5.75 x10E6 INTERFACE SYSTEM HEMOGLOBIN 12.0 (L) 13.8 - 17.4 g/dL INTERFACE SYSTEM HEMATOCRIT 33.6 (L) 38.6 - 49.4 % INTERFACE SYSTEM MCV 86.3 79 - 100 fL INTERFACE SYSTEM MCH 30.8 28 - 34 pg INTERFACE SYSTEM MCHC 35.7 33 - 36 g/dL INTERFACE SYSTEM RDW 13.8 12.1 - 14.1 % INTERFACE SYSTEM PLATELETS 401 148 - 408 x10E3 INTERFACE SYSTEM MPV 8.3 7.4 - 10.6 fL INTERFACE SYSTEM Specimen Performing Organization Address [facility] Ph one Number INTERFACE SYSTEM INTERFACE SYSTEM Refer to clinic/hospital department * OCCULT BLOOD, STOOL (02/13/2008) Pathologist [facility] OCCULT BLOOD #1 Positive INTERFACE SYSTEM Specimen Performing Organization Address [facility] one Number INTERFACE SYSTEM INTERFACE SYSTEM Refer to clinic/hospital department * LIPID PANEL (02/12/2008 4:55 AM CDT) CHOLESTEROL 208 (H) 140 - 200 mg/dl INTERFACE SYSTEM TRIGLYCERIDE 554 (H) 0 - 199 mg/dl INTERFACE Comment: SYSTEM REFERENCE RANGE - TRIGLYCERIDES NORMAL LESS THAN 150 mg/dl BORDERLINE HIGH 150 - 199 mg/dl HIGH 200 - 499 mg/dl VERY HIGH GREATER THAN OR = 500 mg/dl HDL 32 27 - 67 mg/dl INTERFACE SYSTEM LDL 119 <130 mg/dl INTERFACE CHOLESTEROL, Comment: SYSTEM DIRECT --- RISK CATEGORY LDL GOAL High risk: <100 mg/dl CHD or CHD risk equivalents (optional goal: <70 mg/dl) (10-year risk > 20%) Moderately high risk <130 mg/dl 2+ risk factors (10-year risk 10% to 20%) Moderate risk: <130 mg/dl 2+ risk factors (10-year risk < 10%) Lower risk: <160 mg/dl 0-1 risk factor Specimen Narrative Performed At COMMENT: FASTING INTERFACE SYSTEM Performing Organization Address [facility] Ph one Number INTERFACE SYSTEM INTERFACE SYSTEM Refer to clinic/hospital department * URINALYSIS (02/11/2008 10:20 PM CDT) GLUCOSE UA Negative Negative mg/dl INTERFACE SYSTEM BILIRUBIN UA Negative Negative INTERFACE SYSTEM KETONES UA Negative Negative mg/dl INTERFACE SYSTEM SPECIFIC 1.015 INTERFACE GRAVITY UA SYSTEM PH UA 7.5 INTERFACE SYSTEM PROTEIN UA Negative Negative mg/dl INTERFACE SYSTEM UROBILINOGEN UA 1.0 0.2 - 1.0 EU/dl INTERFACE SYSTEM NITRITE UA Negative Negative INTERFACE SYSTEM BLOOD UA Trace (H) Negative INTERFACE SYSTEM LEUKOCYTE Moderate (H) Negative INTERFACE ESTERASE UA SYSTEM WBC UA 30-35 (H) 0 - 5 /HPF INTERFACE SYSTEM RBC UA 3-5 (H) 0 - 3 /HPF INTERFACE SYSTEM EPITHELIAL rare sq INTERFACE CELLS, URINE SYSTEM WBC CLUMPS 5-10 (H) Negative /LPF INTERFACE SYSTEM CASTS, URINE Neg 0-4 Hyaline /LPF INTERFACE SYSTEM CRYSTALS, URINE Amorph PO4 INTERFACE SYSTEM BACTERIA UA 1+ (H) NEG INTERFACE SYSTEM COMMENT, URINE See Culture Report. INTERFACE SYSTEM Specimen Performing Organization Address [facility] Ph one Number INTERFACE SYSTEM INTERFACE SYSTEM Refer to clinic/hospital department * CARDIAC ENZYMES (02/11/2008 9:40 PM CDT) INTERPRETATION See below. INTERFACE Comment: SYSTEM INTERPRETATION - 02/12/08 1411 Normal cardiac marker series, no evidence of acute myocardial infarction. Linda Elise. Specimen Narrative Performed At CARDIAC TROP-12HR TROP-12 HR from [id number]. INT ERFACE SYSTEM CARDIAC Final: FINAL from [id number] . Performing Organization Address [facility] one Number INTERFACE SYSTEM INTERFACE SYSTEM Refer to clinic/hospital department * TROPONIN (02/11/2008 9:40 PM CDT) TROPONIN I LESS THAN 0.04 0 - 0.4 ng/ml INTERFACE SYSTEM Specimen Narrative Performed At CARDIAC TROP-12HR TROP-12 HR from [id number]. INT ERFACE SYSTEM CARDIAC Final: FINAL from [id number] . Performing Organization Address [facility] one Number INTERFACE SYSTEM INTERFACE SYSTEM Refer to clinic/hospital department * TROPONIN (02/11/2008 3:40 PM CDT) TROPONIN I 0.04 0 - 0.4 ng/ml INTERFACE SYSTEM Specimen Narrative Performed At CARDIAC TROP-6HR TROP-6 HR from [id number]. INTER FACE SYSTEM CARDIAC Interim: CAR6 from [id number]. Performing Organization Address [facility] one Number INTERFACE SYSTEM INTERFACE SYSTEM Refer to clinic/hospital department * TROPONIN (02/11/2008 12:44 PM CDT) TROPONIN I 0.08 0 - 0.4 ng/ml INTERFACE SYSTEM Specimen Narrative Performed At CARDIAC NYLA-3HR NYLA-3 HR from [id number]. INTERFA CE SYSTEM CARDIAC TROP-3HR TROP-3 HR from [id number]. CARDIAC Interim: CAR3 from [id number]. Performing Organization Address [facility] one Number INTERFACE SYSTEM INTERFACE SYSTEM Refer to clinic/hospital department * MYOGLOBIN (02/11/2008 12:44 PM CDT) MYOGLOBIN, 38 16 - 97 ng/ml INTERFACE PLASMA SYSTEM Specimen Narrative Performed At CARDIAC NYLA-3HR NYLA-3 HR from [id number]. INTERFA CE SYSTEM CARDIAC TROP-3HR TROP-3 HR from [id number]. CARDIAC Interim: CAR3 from [id number]. Performing Organization Address [facility] one Number INTERFACE SYSTEM INTERFACE SYSTEM Refer to clinic/hospital department * CBC WITH MANUAL DIFFERENTIAL (02/11/2008 9:35 AM CDT) WBC 5.54 3.0 - 10.4 x10E3 INTERFACE SYSTEM RBC 4.03 (L) 4.15 - 5.75 x10E6 INTERFACE SYSTEM HEMOGLOBIN 12.5 (L) 13.8 - 17.4 g/dL INTERFACE SYSTEM HEMATOCRIT 34.4 (L) 38.6 - 49.4 % INTERFACE SYSTEM MCV 85.5 79 - 100 fL INTERFACE SYSTEM MCH 30.9 28 - 34 pg INTERFACE SYSTEM MCHC 36.2 (H) 33 - 36 g/dL INTERFACE SYSTEM RDW 13.9 12.1 - 14.1 % INTERFACE SYSTEM PLATELETS 452 (H) 148 - 408 x10E3 INTERFACE SYSTEM MPV 8.4 7.4 - 10.6 fL INTERFACE SYSTEM NEUTROPHILS 66.2 43 - 73 % INTERFACE SYSTEM LYMPHOCYTES 25.3 19 - 47 % INTERFACE SYSTEM MONOCYTES 5.0 3 - 9 % INTERFACE SYSTEM EOSINOPHILS 3.0 0 - 6 % INTERFACE SYSTEM BASOPHILS 0.4 0 - 1.2 % INTERFACE SYSTEM NEUTROPHIL 3.67 1.3 - 7.6 x10E3 INTERFACE ABSOLUTE SYSTEM LYMPHOCYTE 1.40 0.6 - 4.9 x10E3 INTERFACE ABSOLUTE SYSTEM MONOCYTE 0.28 0.1 - 0.9 x10E3 INTERFACE ABSOLUTE SYSTEM EOSINOPHIL 0.17 0.0 - 0.2 x10E3 INTERFACE ABSOLUTE SYSTEM BASOPHILS 0.02 0 - 0.1 x10E3 INTERFACE ABSOLUTE SYSTEM BASOPHILS 1 % INTERFACE SYSTEM EOSINOPHILS 6 % INTERFACE SYSTEM BANDS 4 % INTERFACE SYSTEM NEUTROPHILS, 55 % INTERFACE SEG SYSTEM LYMPHOCYTES 32 % INTERFACE SYSTEM MONOCYTE 2 % INTERFACE SYSTEM PLATELET EST. Normal INTERFACE SYSTEM WBC ESTIMATE Normal INTERFACE SYSTEM Specimen Narrative Performed At COMMENT: CHEST PAIN INTERFACE SYSTEM Performing Organization Address City/[facility] one Number INTERFACE SYSTEM INTERFACE SYSTEM Refer to clinic/hospital department * TROPONIN (02/11/2008 9:35 AM CDT) TROPONIN I 0.06 0 - 0.4 ng/ml INTERFACE SYSTEM Specimen Narrative Performed At CARDIAC NYLA-0HR NYLA-0 HR from [id number]. INTERFA CE SYSTEM CARDIAC TROP-0HR TROP-0 HR from [id number]. Performing Organization Address [facility] one Number INTERFACE SYSTEM INTERFACE SYSTEM Refer to clinic/hospital department * MYOGLOBIN (02/11/2008 9:35 AM CDT) MYOGLOBIN, 45 16 - 97 ng/ml INTERFACE PLASMA SYSTEM Specimen Narrative Performed At CARDIAC NYLA-0HR NYLA-0 HR from [id number]. INTERFA CE SYSTEM CARDIAC TROP-0HR TROP-0 HR from [id number]. Performing Organization Address [facility] one Number INTERFACE SYSTEM INTERFACE SYSTEM Refer to clinic/hospital department * BRAIN NATRIURETIC PEPTIDE, BNP OR PROBNP (02/11/2008 9:35 AM CDT) BRAIN 80 0 - 125 pg/ml INTERFACE NATRIURETIC SYSTEM PEPTIDE Specimen Narrative Performed At COMMENT: CHEST PAIN INTERFACE SYSTEM Performing Organization Address [facility] one Number INTERFACE SYSTEM INTERFACE SYSTEM Refer to clinic/hospital department * MAGNESIUM LEVEL (02/11/2008 9:35 AM CDT) MAGNESIUM 1.6 (L) 1.8 - 2.4 mg/dl INTERFACE SYSTEM Specimen Narrative Performed At COMMENT: CHEST PAIN INTERFACE SYSTEM Performing Organization Address [facility] one Number INTERFACE SYSTEM INTERFACE SYSTEM Refer to clinic/hospital department * COMPREHENSIVE METABOLIC PANEL (02/11/2008 9:35 AM CDT) GLUCOSE 179 (H) 70 - 110 mg/dl INTERFACE SYSTEM BUN 26.0 (H) 7 - 20 mg/dl INTERFACE SYSTEM CREATININE 1.0 0.8 - 1.3 mg/dl INTERFACE SYSTEM BUN/CREAT RATIO 26.0 (H) 10 - 20 INTERFACE SYSTEM GFR 82 >90 ml/min INTERFACE SYSTEM SODIUM 135 135 - 145 mmol/L INTERFACE SYSTEM POTASSIUM 4.0 3.3 - 4.8 mmol/L INTERFACE SYSTEM CHLORIDE 98 98 - 107 mmol/L INTERFACE SYSTEM CO2 27.9 22 - 31 mmol/L INTERFACE SYSTEM ANION GAP 13 4 - 20 INTERFACE SYSTEM CALCIUM 8.5 8.5 - 10.1 mg/dl INTERFACE SYSTEM ALBUMIN 4.0 3.4 - 5.0 g/dl INTERFACE SYSTEM TOTAL PROTEIN 6.6 6.4 - 8.2 g/dl INTERFACE SYSTEM GLOBULIN (CALC) 2.6 INTERFACE SYSTEM ALBUMIN/GLOBULI 1.5 INTERFACE N RATIO SYSTEM BILIRUBIN TOTAL 0.3 <1.1 mg/dl INTERFACE SYSTEM ALKALINE 49 (L) 50 - 136 IU/L INTERFACE PHOSPHATASE SYSTEM AST 23 10 - 40 IU/L INTERFACE SYSTEM ALT 39 25 - 70 IU/L INTERFACE SYSTEM Specimen Narrative Performed At COMMENT: CHEST PAIN INTERFACE SYSTEM Performing Organization Address City/State/Zipcode Ph one Number INTERFACE SYSTEM INTERFACE SYSTEM Refer to clinic/hospital department documented in this encounter Visit Diagnoses Diagnosis Urinary tract infection, site not speci fied - Primary documented in this encounter
--- OUTSIDE RECORDS SUMMARY | 2020-03-24 14:49 | XMS REPORT | Encounter Summary ---
Author Author [facility] Organization [facility] Address Unknown Phone Unavailable Care Team Providers Care Cardiology Technologist Name Role Phone Shahram Mccallum MD PCP Unavailable Claus Couch MD PCP Encounter Details Care Team Description Date Type Department Junior Beal MD [address] [place] [phone] Cor Athrscl-Uns Vessel (Primary Dx) 09/19/2007 [facility]patient [facility] Historical [address] [phone] Social History Date Tobacco Use Types Packs/Day [...] Coronary atherosclerosis of unspecified type of vessel, [place] or graft - Primary documented in this encounter
--- OUTSIDE RECORDS SUMMARY | 2020-03-24 14:49 | XMS REPORT | Encounter Summary ---
Author Author [facility] Organization [facility] Address Unknown Phone Unavailable Care Team Providers Care Forensic Computer Examiner Name Role Phone Shahram Mccallum MD PCP Unavailable Claus Couch MD PCP Encounter Details Care Team Description Date Type Department Shahram Mccallum MD NO ADDRESS ON FILE Pure Hypercholesterolem (Primary Dx) 10/21/2007 Outpatient [facility] [address] [facility] Historical MEDICAID Social History Date Tobacco Use [...] Associated Diag nosis CBC WITH DIFFERENTIAL Routine 10/21/2007 8:02 AM ANTHROPOMETRIST ALT Routine 10/21/2007 8:02 AM ANTHROPOMETRIST AST Routine 10/21/2007 8:02 AM ANTHROPOMETRIST HEMOGLOBIN A1C Routine 10/21/2007 8:02 AM ANTHROPOMETRIST PHENYTOIN LEVEL, TOTAL Routine 10/21/2007 8:02 AM ANTHROPOMETRIST LIPID PANEL Routine 10/21/2007 8:02 AM ANTHROPOMETRIST BASIC METABOLIC PANEL Routine 10/21/2007 8:02 AM ANTHROPOMETRIST documented in this encounter Results * HEMOGLOBIN A1C (10/21/2007 8:02 AM ANTHROPOMETRIST) HEMOGLOBIN A1C 5.8 0 - 6.0 % INTERFACE SYSTEM GLUCOSE, MEAN 118 mg/dl INTERFACE BLOOD SYSTEM Specimen Narrative Performed At [facility]STING INTERFACE SYSTEM Performing Organization Address [facility] INTERFACE SYSTEM INTERFACE SYSTEM Refer to clinic/hospital department * CBC WITH DIFFERENTIAL (10/21/2007 8:02 AM ANTHROPOMETRIST) Pathologist [facility] WBC 5.16 4.0 - 10.8 x10E3 INTERFACE SYSTEM RBC 4.41 (L) 4.7 - 6.1 x10E6 INTERFACE SYSTEM HEMOGLOBIN 13.4 (L) 14.0 - 18.0 g/dL INTERFACE SYSTEM HEMATOCRIT 37.9 (L) 42 - 52 % INTERFACE SYSTEM MCV 86.0 80.0 - 97 fL INTERFACE SYSTEM MCH 30.5 27 - 33 pg INTERFACE SYSTEM MCHC 35.5 32 - 38 g/dL INTERFACE SYSTEM RDW 14.2 12.7 - 16.5 % INTERFACE SYSTEM PLATELETS 347 130 - 400 x10E3 INTERFACE SYSTEM MPV 8.2 7.4 - 10.4 fL INTERFACE SYSTEM NEUTROPHILS 66.9 37.0 - 75.0 % INTERFACE SYSTEM LYMPHOCYTES 23.9 10.0 - 50.0 % INTERFACE SYSTEM MONOCYTES 5.5 0.0 - 12.0 % INTERFACE SYSTEM EOSINOPHILS 3.5 0.0 - 7.0 % INTERFACE SYSTEM BASOPHILS 0.2 0.0 - 2.5 % INTERFACE SYSTEM NEUTROPHIL 3.45 2.0 - 6.9 x10E3 INTERFACE ABSOLUTE SYSTEM LYMPHOCYTE 1.24 0.6 - 3.4 x10E3 INTERFACE ABSOLUTE SYSTEM MONOCYTE 0.28 0.0 - 0.9 x10E3 INTERFACE ABSOLUTE SYSTEM EOSINOPHIL 0.18 0.0 - 0.7 x10E3 INTERFACE ABSOLUTE SYSTEM BASOPHILS 0.01 0 - 0.2 x10E3 INTERFACE ABSOLUTE SYSTEM Specimen Narrative Performed At [facility] INTERFACE SYSTEM Performing Organization Address [facility] one Number INTERFACE SYSTEM INTERFACE SYSTEM Refer to clinic/hospital department * PHENYTOIN LEVEL, TOTAL (10/21/2007 8:02 AM ANTHROPOMETRIST) Pathologist [facility] PHENYTOIN TOTAL 19.1 10 - 20 ug/ml INTERFACE SYSTEM Specimen Narrative Performed At [facility] INTERFACE SYSTEM Performing Organization Address [facility] one Number INTERFACE SYSTEM INTERFACE SYSTEM Refer to clinic/hospital department * ALT (10/21/2007 8:02 AM ANTHROPOMETRIST) Pathologist [facility] ALT 31 25 - 70 IU/L INTERFACE SYSTEM Specimen Narrative Performed At [facility]STING INTERFACE SYSTEM Performing Organization Address [facility]/Zipcode Ph one Number INTERFACE SYSTEM INTERFACE SYSTEM Refer to clinic/hospital department * AST (10/21/2007 8:02 AM ANTHROPOMETRIST) AST 21 10 - 40 IU/L INTERFACE SYSTEM Specimen Narrative Performed At [facility] INTERFACE SYSTEM Performing Organization Address [facility] one Number INTERFACE SYSTEM INTERFACE SYSTEM Refer to clinic/hospital department * LIPID PANEL (10/21/2007 8:02 AM ANTHROPOMETRIST) CHOLESTEROL 221 (H) 140 - 200 mg/dl INTERFACE SYSTEM TRIGLYCERIDE 324 (H) 0 - 199 mg/dl INTERFACE Comment: SYSTEM REFERENCE RANGE - TRIGLYCERIDES NORMAL LESS THAN 150 mg/dl BORDERLINE HIGH 150 - 199 mg/dl HIGH 200 - 499 mg/dl VERY HIGH GREATER THAN OR = 500 mg/dl HDL 42 27 - 67 mg/dl INTERFACE SYSTEM LDL 133 (H) <130 mg/dl INTERFACE CHOLESTEROL, Comment: SYSTEM DIRECT [...] 0-1 risk factor Specimen Narrative Performed At FASTING INTERFACE SYSTEM Performing Organization Address [facility] one Number INTERFACE SYSTEM INTERFACE SYSTEM Refer to clinic/hospital department * BASIC METABOLIC PANEL (10/21/2007 8:02 AM ANTHROPOMETRIST) GLUCOSE 92 70 - 110 mg/dl INTERFACE SYSTEM BUN 21.0 (H) 7 - 20 mg/dl INTERFACE SYSTEM CREATININE 0.8 0.8 - 1.3 mg/dl INTERFACE SYSTEM BUN/CREAT RATIO 26.3 (H) 10 - 20 INTERFACE SYSTEM GFR 106 >90 ml/min INTERFACE SYSTEM SODIUM 138 135 - 145 mmol/L INTERFACE SYSTEM POTASSIUM 4.2 3.3 - 4.8 mmol/L INTERFACE SYSTEM CHLORIDE 100 98 - 107 mmol/L INTERFACE SYSTEM CO2 28.3 22 - 31 mmol/L INTERFACE SYSTEM ANION GAP 14 4 - 20 INTERFACE SYSTEM CALCIUM 9.1 8.5 - 10.1 mg/dl INTERFACE SYSTEM Specimen Narrative Performed At FASTING INTERFACE SYSTEM Performing Organization Address [facility] one [facility] INTERFACE SYSTEM INTERFACE SYSTEM Refer to clinic/hospital department documented in this encounter Visit Diagnoses Diagnosis Pure hypercholesterolem - Primary Pure hypercholesterolemia documented in this encounter
--- OUTSIDE RECORDS SUMMARY | 2020-03-24 14:49 | XMS REPORT | Encounter Summary ---
Author Author [facility] Organization [facility] Address Unknown Phone Unavailable Care Team Providers Care Technology Applications Consultant Name Role Phone PCP Unavailable Encounter Details Care Team Description Date Type Department Provider, Abstract 02/07/2008 Abstract [facility] ABSTRACTION Social History Date Tobacco Use Types Packs/Day Years Used Never Assessed Sex Assigned at Date Recorded Not on file Industry Job Start Date Occupation Not on file Not on file Not on file Travel End Travel History Travel Start No recent travel history available. documented as of this encounter Last Filed Vital Signs Reading Time Taken Comments Vital Sign 108/56 02/07/2008 8:54 AM CDT Blood Pressure 56 02/07/2008 8:54 AM CDT Reg. Pulse - - Temperature - - Respiratory Rate - - Oxygen Saturation - - Inhaled Oxygen Concentration - - Weight - - Height - - Body Mass Index documented in this encounter Plan of Treatment Not on filedocumented as of this encounter Visit Diagnoses Not on filedocumented in this encounter
--- OUTSIDE RECORDS SUMMARY | 2020-03-24 14:49 | XMS REPORT | Encounter Summary ---
Author Author [facility] Organization [facility] Address Unknown Phone Unavailable Care Team Providers Care Plc Controls Engineer Name Role Phone Shahram Mccallum MD PCP Unavailable Claus Couch MD PCP Encounter Details Care Team Description Date Type Department Shahram Mccallum MD NO ADDRESS ON FILE Obstructive Chronic Bronchitis with Exac erbation (Primary Dx) 12/29/2007 Outpatient [facility] [address] [address] Social History Date Tobacco Use Types Packs/Day Years Used Never Assessed Sex Assigned at Date Recorded Not on file Industry Job Start Date Occupation Not on file Not on file Not on file Travel End Travel History Travel Start No recent travel history available. documented as of this encounter Plan of Treatment Not on filedocumented as of this encounter Visit Diagnoses Diagnosis Obstructive chronic bronchitis with exa cerbation - Primary documented in this encounter
--- OUTSIDE RECORDS SUMMARY | 2020-03-24 14:49 | XMS REPORT | Encounter Summary ---
Author Author [facility] Organization [facility] Address Unknown Phone Unavailable Care Team Providers Care Boiler Tube Reamer Name Role Phone PCP Unavailable Encounter Details Care Team Description Date Type Department Conversion, History 02/11/2008 Orders Only HIS CONVERSION Social History Date Tobacco Use Types Packs/Day Years Used Never Assessed Sex Assigned at Date Recorded Not on file Industry Job Start Date Occupation Not on file Not on file Not on file Travel End Travel History Travel Start No recent travel history available. documented as of this encounter Progress Notes * Bong lE Conv Transcriptions - 08/10/2008 4:14 PM CDT 4 :14 PM CDT documented in this encounter Plan of Treatment Not on filedocumented as of this encounter Visit Diagnoses Not on filedocumented in this encounter
--- OUTSIDE RECORDS SUMMARY | 2020-03-24 14:49 | XMS REPORT | Encounter Summary ---
Author Author [facility] Organization [facility] Address Unknown Phone Unavailable Care Team Providers Care Slitter Scorer Name Role Phone Shahram Mccallum MD PCP Unavailable Claus Couch MD PCP Encounter Details Care Team Description Date Type Department Walter Oconnor MD [address] [facility] [address] [place] [address] Angina Pectoris NEC/NOS (Primary Dx) 12/22/2007 Outpatient [facility] Historical [address] [address] Social History Date Tobacco [...] as of this encounter Visit Diagnoses Diagnosis Angina pectoris NEC/NOS - Primary Other and unspecified angina pectoris documented in this encounter
--- OUTSIDE RECORDS SUMMARY | 2020-03-24 14:49 | XMS REPORT | Encounter Summary ---
Author Author [facility] Organization [facility] Address Unknown Phone Unavailable Care Team Providers Care Continuity Writer Name Role Phone Shahram Mccallum MD PCP Unavailable Claus Couch MD PCP Encounter Details Care Team Description Date Type Department Shahram Mccallum MD NO ADDRESS ON FILE Diarrhea (Primary Dx) 02/07/2008 Outpatient [facility] Consol idated Historical [address] [address] Social History Date Tobacco Use Types Packs/Day Years Used Never Assessed Sex Assigned at Date Recorded Not on file Industry Job Start Date Occupation Not on file Not on file Not on file Travel End Travel History Travel Start No recent travel history available. documented as of this encounter Plan of Treatment Not on filedocumented as of this encounter Visit Diagnoses Diagnosis Diarrhea - Primary documented in this encounter
--- OUTSIDE RECORDS SUMMARY | 2020-03-24 14:49 | XMS REPORT | Encounter Summary ---
Author Author [facility] Organization [facility] Address Unknown Phone Unavailable Care Team Providers Care Enrollment Counselor Name Role Phone Shahram Mccallum MD PCP Unavailable Claus Couch MD PCP Encounter Details Care Team Description Date Type Department Shahram Mccallum MD NO ADDRESS ON FILE Other Malaise and Fatigue (Primary Dx) 09/02/2007 Outpatient [facility] Consol idated Historical [facility] [address] [place] [address] Social History Date Tobacco Use Types Packs/Day Years Used Never Assessed Sex Assigned at Date Recorded Not on file Industry Job Start Date Occupation Not on file Not on file Not on file Travel End Travel History Travel Start No recent travel history available. documented as of this encounter Plan of Treatment Not on filedocumented as of this encounter Visit Diagnoses Diagnosis Other malaise and fatigue - Primary documented in this encounter
--- OUTSIDE RECORDS SUMMARY | 2020-03-24 14:49 | XMS REPORT | Encounter Summary ---
Author Author [facility] Organization [facility] Address Unknown Phone Unavailable Care Team Providers Care Solidworks Drafter Name Role Phone Shahram Mccallum MD PCP Unavailable Claus Couch MD PCP Encounter Details Care Team Description Date Type Department Shahram Mccallum MD NO ADDRESS ON FILE No Proc for Reasons NEC (Primary Dx) 10/17/2007 Outpatient [facility] [address] [facility] Historical MEDICAID Social History Date Tobacco Use [...]
--- OUTSIDE RECORDS SUMMARY | 2020-03-24 14:49 | XMS REPORT | Encounter Summary ---
Author Author [facility] Organization [facility] Address Unknown Phone Unavailable Care Team Providers Care Medication Specialist Name Role Phone Shahram Mccallum MD PCP Unavailable Claus Couch MD PCP Encounter Details Care Team Description Date Type Department Shahram Mccallum MD NO ADDRESS ON FILE DM Manif NEC Type II (Primary Dx) 12/14/2007 Outpatient [facility] Historical Social [...]
--- OUTSIDE RECORDS SUMMARY | 2020-03-24 14:49 | XMS REPORT | Encounter Summary ---
Author Author [facility] Organization [facility] Address Unknown Phone Unavailable Care Team Providers Care Audio Visual Design Engineer Name Role Phone Shahram Mccallum MD PCP Unavailable Claus Couch MD PCP Encounter Details Care Team Description Date Type Department Shahram Mccallum MD NO ADDRESS ON FILE Abn Urine Findings NEC (Primary Dx) 02/07/2008 Outpatient [facility] [address] [facility] [...] Associated Diag nosis CBC WITH DIFFERENTIAL Routine 02/07/2008 10:55 AM CDT PTT Routine 02/07/2008 10:55 AM CDT PROTIME-INR Routine 02/07/2008 10:55 AM CDT HEMOGLOBIN A1C Routine 02/07/2008 10:55 AM CDT LIPID PANEL Routine 02/07/2008 10:55 AM CDT COMPREHENSIVE METABOLIC Routine 02/07/2008 PANEL 10:55 AM CDT URINALYSIS W/REFLEX Routine 02/07/2008 MICROSCOPIC 10:54 AM CDT documented in this encounter Results * HEMOGLOBIN A1C (02/07/2008 10:55 AM CDT) HEMOGLOBIN A1C 5.9 0 - 6.0 % INTERFACE SYSTEM GLUCOSE, MEAN 121 mg/dl INTERFACE BLOOD SYSTEM Specimen Performing Organization Address [facility] one Number INTERFACE SYSTEM INTERFACE SYSTEM Refer to clinic/hospital department * CBC WITH DIFFERENTIAL (02/07/2008 10:55 AM CDT) WBC 6.44 3.0 - 10.4 x10E3 INTERFACE SYSTEM RBC 4.11 (L) 4.15 - 5.75 x10E6 INTERFACE SYSTEM HEMOGLOBIN 12.5 (L) 13.8 - 17.4 g/dL INTERFACE SYSTEM HEMATOCRIT 35.5 (L) 38.6 - 49.4 % INTERFACE SYSTEM MCV 86.2 79 - 100 fL INTERFACE SYSTEM MCH 30.4 28 - 34 pg INTERFACE SYSTEM MCHC 35.3 33 - 36 g/dL INTERFACE SYSTEM RDW 13.9 12.1 - 14.1 % INTERFACE SYSTEM PLATELETS 409 (H) 148 - 408 x10E3 INTERFACE SYSTEM MPV 7.7 7.4 - 10.6 fL INTERFACE SYSTEM NEUTROPHILS 60.0 43 - 73 % INTERFACE SYSTEM LYMPHOCYTES 31.6 19 - 47 % INTERFACE SYSTEM MONOCYTES 5.6 3 - 9 % INTERFACE SYSTEM EOSINOPHILS 2.6 0 - 6 % INTERFACE SYSTEM BASOPHILS 0.2 0 - 1.2 % INTERFACE SYSTEM NEUTROPHIL 3.86 1.3 - 7.6 x10E3 INTERFACE ABSOLUTE SYSTEM LYMPHOCYTE 2.04 0.6 - 4.9 x10E3 INTERFACE ABSOLUTE SYSTEM MONOCYTE 0.36 0.1 - 0.9 x10E3 INTERFACE ABSOLUTE SYSTEM EOSINOPHIL 0.17 0.0 - 0.2 x10E3 INTERFACE ABSOLUTE SYSTEM BASOPHILS 0.01 0 - 0.1 x10E3 INTERFACE ABSOLUTE SYSTEM Specimen Performing Organization Address [facility] one Number INTERFACE SYSTEM INTERFACE SYSTEM Refer to clinic/hospital department * PTT (02/07/2008 10:55 AM CDT) PTT 25 23 - 31 Sec INTERFACE SYSTEM Specimen Performing Organization Address [facility] one Number INTERFACE SYSTEM INTERFACE SYSTEM Refer to clinic/hospital department * PROTIME-INR (02/07/2008 10:55 AM CDT) PROTIME 11.9 (H) 9.5 - 11.5 Sec INTERFACE SYSTEM INR 1.14 (L) 2.0 - 3.0 INTERFACE SYSTEM Specimen Performing Organization Address City/State/Zipcode Ph one Number INTERFACE SYSTEM INTERFACE SYSTEM Refer to clinic/hospital department * LIPID PANEL (02/07/2008 10:55 AM CDT) CHOLESTEROL 207 (H) 140 - 200 mg/dl INTERFACE SYSTEM TRIGLYCERIDE 293 (H) 0 - 199 mg/dl INTERFACE Comment: SYSTEM REFERENCE RANGE - TRIGLYCERIDES NORMAL LESS THAN 150 mg/dl BORDERLINE HIGH 150 - 199 mg/dl HIGH 200 - 499 mg/dl VERY HIGH GREATER THAN OR = 500 mg/dl HDL 37 27 - 67 mg/dl INTERFACE SYSTEM LDL 142 (H) <130 mg/dl INTERFACE CHOLESTEROL, Comment: SYSTEM DIRECT --- RISK CATEGORY LDL GOAL High risk: <100 mg/dl CHD or CHD risk equivalents (optional goal: <70 mg/dl) (10-year risk > 20%) Moderately high risk <130 mg/dl 2+ risk factors (10-year risk 10% to 20%) Moderate risk: <130 mg/dl 2+ risk factors (10-year risk < 10%) Lower risk: <160 mg/dl 0-1 risk factor Specimen Performing Organization Address [facility] one Number INTERFACE SYSTEM INTERFACE SYSTEM Refer to clinic/hospital department * COMPREHENSIVE METABOLIC PANEL (02/07/2008 10:55 AM CDT) GLUCOSE 117 (H) 70 - 110 mg/dl INTERFACE SYSTEM BUN 24.0 (H) 7 - 20 mg/dl INTERFACE SYSTEM CREATININE 1.0 0.8 - 1.3 mg/dl INTERFACE SYSTEM BUN/CREAT RATIO 24.0 (H) 10 - 20 INTERFACE SYSTEM GFR 82 >90 ml/min INTERFACE SYSTEM SODIUM 134 (L) 135 - 145 mmol/L INTERFACE SYSTEM POTASSIUM 4.4 3.3 - 4.8 mmol/L INTERFACE SYSTEM CHLORIDE 96 (L) 98 - 107 mmol/L INTERFACE SYSTEM CO2 27.7 22 - 31 mmol/L INTERFACE SYSTEM ANION GAP 15 4 - 20 INTERFACE SYSTEM CALCIUM 9.1 8.5 - 10.1 mg/dl INTERFACE SYSTEM ALBUMIN 4.2 3.4 - 5.0 g/dl INTERFACE SYSTEM TOTAL PROTEIN 6.8 6.4 - 8.2 g/dl INTERFACE SYSTEM GLOBULIN (CALC) 2.6 INTERFACE SYSTEM ALBUMIN/GLOBULI 1.6 INTERFACE N RATIO SYSTEM BILIRUBIN TOTAL 0.3 <1.1 mg/dl INTERFACE SYSTEM ALKALINE 44 (L) 50 - 136 IU/L INTERFACE PHOSPHATASE SYSTEM AST 31 10 - 40 IU/L INTERFACE SYSTEM ALT 45 25 - 70 IU/L INTERFACE SYSTEM Specimen Performing Organization Address [facility] one Number INTERFACE SYSTEM INTERFACE SYSTEM Refer to clinic/hospital department * URINALYSIS (02/07/2008 10:54 AM CDT) GLUCOSE UA Negative Negative mg/dl INTERFACE SYSTEM BILIRUBIN UA Negative Negative INTERFACE SYSTEM KETONES UA Negative Negative mg/dl INTERFACE SYSTEM SPECIFIC 1.015 INTERFACE GRAVITY UA SYSTEM PH UA 7.0 INTERFACE SYSTEM PROTEIN UA Negative Negative mg/dl INTERFACE SYSTEM UROBILINOGEN UA 0.2 0.2 - 1.0 EU/dl INTERFACE SYSTEM NITRITE UA Positive (H) Negative INTERFACE SYSTEM BLOOD UA Small (H) Negative INTERFACE SYSTEM LEUKOCYTE Small (H) Negative INTERFACE ESTERASE UA SYSTEM WBC UA 15-20 (H) 0 - 5 /HPF INTERFACE SYSTEM RBC UA 5-10 (H) 0 - 3 /HPF INTERFACE SYSTEM EPITHELIAL 1+ sq INTERFACE CELLS, URINE SYSTEM WBC CLUMPS Neg Negative /LPF INTERFACE SYSTEM CASTS, URINE Neg 0-4 Hyaline /LPF INTERFACE SYSTEM CRYSTALS, URINE Neg INTERFACE SYSTEM BACTERIA UA 2+ (H) NEG INTERFACE SYSTEM COMMENT, URINE See Culture Report. INTERFACE SYSTEM Specimen Performing Organization Address City/State/Zipcode Ph one Number INTERFACE SYSTEM INTERFACE SYSTEM Refer to clinic/hospital department documented in this encounter Visit Diagnoses Diagnosis Abn urine findings NEC - Primary Other nonspecific finding on examinatio n of urine documented in this encounter
--- OUTSIDE RECORDS SUMMARY | 2020-03-24 14:49 | XMS REPORT | Encounter Summary ---
Author Author [facility] Organization [facility] Address Unknown Phone Unavailable Care Team Providers Care Erp Business Analyst Name Role Phone Shahram Mccallum MD PCP Unavailable Claus Couch MD PCP Encounter Details Care Team Description Date Type Department Shahram Mccallum MD NO ADDRESS ON FILE Pain in Limb (Primary Dx) 09/05/2007 Outpatient [facility] Ultrasound [address] [place] [address] Social History Date Tobacco Use [...] of this encounter Visit Diagnoses Diagnosis Pain in limb - Primary Pain in soft tissues of limb documented in this encounter
--- OUTSIDE RECORDS SUMMARY | 2020-03-24 14:49 | XMS REPORT | Encounter Summary ---
Author Author [facility] Organization [facility] Address Unknown Phone Unavailable Care Team Providers Care Linux System Engineer Name Role Phone Shahram Mccallum MD PCP Unavailable Claus Couch MD PCP Encounter Details Care Team Description Date Type Department Shahram Mccallum MD NO ADDRESS ON FILE DM Manif NEC Type II (Primary Dx) 10/05/2007 Outpatient [facility] Historical Social [...]
--- OUTSIDE RECORDS SUMMARY | 2020-03-24 14:49 | XMS REPORT | Encounter Summary ---
Author Author [facility] Organization [facility] Address Unknown Phone Unavailable Care Team Providers Care Anti Air Warfare Operations Officer Name Role Phone Shahram Mccallum MD PCP Unavailable Claus Couch MD PCP Encounter Details Care Team Description Date Type Department Shahram Mccallum MD NO ADDRESS ON FILE Unspecified Chest Pain (Primary Dx) 12/26/2007 Outpatient [facility] Consol idated Historical [facility] [address] [place] [address] Social History Date Tobacco Use Types Packs/Day Years Used Never Assessed Sex Assigned at Date Recorded Not on file Industry Job Start Date Occupation Not on file Not on file Not on file Travel End Travel History Travel Start No recent travel history available. documented as of this encounter Plan of Treatment Not on filedocumented as of this encounter Visit Diagnoses Diagnosis Chest pain, unspecified - Primary documented in this encounter
--- OUTSIDE RECORDS SUMMARY | 2020-03-24 14:49 | XMS REPORT | Encounter Summary ---
Author Author [facility] Organization [facility] Address Unknown Phone Unavailable Care Team Providers Care Clear Coat Sprayer Name Role Phone Shahram Mccallum MD PCP Unavailable Claus Couch MD PCP Encounter Details Care Team Description Date Type Department Shahram Mccallum MD NO ADDRESS ON FILE Cor Athrscl-Uns Vessel (Primary Dx) 10/24/2007 Outpatient [facility] Consol idated Historical [facility] [address] [place] [address] Social History Date Tobacco Use Types Packs/Day [...] of unspecified type of vessel, [place] or graft - Primary documented in this encounter
--- OUTSIDE RECORDS SUMMARY | 2020-03-24 14:49 | XMS REPORT | Encounter Summary ---
Author Author [facility] Organization [facility] Address Unknown Phone Unavailable Care Team Providers Care Metallurgical Tester Name Role Phone Shahram Mccallum MD PCP Unavailable Claus Couch MD PCP Encounter Details Care Team Description Date Type Department Junior Beal MD [address] [place] [address] Cor Athrscl-Uns Vessel (Primary Dx) 09/19/2007 Outpatient [facility] Consol idated Historical [facility] [address] [place] [address] Social History Date Tobacco Use Types Packs/Day [...] Coronary atherosclerosis of unspecified type of vessel, [place] or graft - Primary documented in this encounter
--- OUTSIDE RECORDS SUMMARY | 2020-03-24 14:49 | XMS REPORT | Encounter Summary ---
Author Author [facility] Organization [facility] Address Unknown Phone Unavailable Care Team Providers Care Horse Race Timer Name Role Phone Shahram Mccallum MD PCP Unavailable Claus Couch MD PCP Encounter Details Care Team Description Date Type Department Junior Beal MD [address] [place] [address] Routine Medical Exam (Primary Dx) 09/09/2007 Outpatient [facility] Consol idated Historical [address] [address] Social History Date Tobacco Use Types Packs/Day Years Used Never Assessed Sex Assigned at Date Recorded Not on file Industry Job Start Date Occupation Not on file Not on file Not on file Travel End Travel History Travel Start No recent travel history available. documented as of this encounter Plan of Treatment Not on filedocumented as of this encounter Visit Diagnoses Diagnosis Routine medical exam - Primary Routine general medical examination at a health care facility documented in this encounter
--- OUTSIDE RECORDS SUMMARY | 2020-03-24 14:49 | XMS REPORT | Encounter Summary ---
Author Author [facility] Organization [facility] Address Unknown Phone Unavailable Care Team Providers Care Quality Assurance Tech Name Role Phone Shahram Mccallum MD PCP Unavailable Claus Couch MD PCP Encounter Details Care Team Description Date Type Department Shahram Mccallum MD NO ADDRESS ON FILE Other Malaise and Fatigue (Primary Dx) 09/02/2007 Outpatient [facility] [address] [facility] [place] [...] Associated Diag nosis CBC WITH DIFFERENTIAL Routine 09/02/2007 5:20 PM CDT documented in this encounter Results * CBC WITH DIFFERENTIAL (09/02/2007 5:20 PM CDT) WBC 5.94 4.0 - 10.8 x10E3 INTERFACE SYSTEM RBC 4.02 (L) 4.7 - 6.1 x10E6 INTERFACE SYSTEM HEMOGLOBIN 12.3 (L) 14.0 - 18.0 g/dL INTERFACE SYSTEM HEMATOCRIT 34.6 (L) 42 - 52 % INTERFACE SYSTEM MCV 86.1 80.0 - 97 fL INTERFACE SYSTEM MCH 30.7 27 - 33 pg INTERFACE SYSTEM MCHC 35.7 32 - 38 g/dL INTERFACE SYSTEM RDW 14.4 12.7 - 16.5 % INTERFACE SYSTEM PLATELETS 371 130 - 400 x10E3 INTERFACE SYSTEM MPV 7.4 7.4 - 10.4 fL INTERFACE SYSTEM NEUTROPHILS 58.0 37.0 - 75.0 % INTERFACE SYSTEM LYMPHOCYTES 32.9 10.0 - 50.0 % INTERFACE SYSTEM MONOCYTES 6.0 0.0 - 12.0 % INTERFACE SYSTEM EOSINOPHILS 2.8 0.0 - 7.0 % INTERFACE SYSTEM BASOPHILS 0.4 0.0 - 2.5 % INTERFACE SYSTEM NEUTROPHIL 3.45 2.0 - 6.9 x10E3 INTERFACE ABSOLUTE SYSTEM LYMPHOCYTE 1.96 0.6 - 3.4 x10E3 INTERFACE ABSOLUTE SYSTEM MONOCYTE 0.35 0.0 - 0.9 x10E3 INTERFACE ABSOLUTE SYSTEM EOSINOPHIL 0.16 0.0 - 0.7 x10E3 INTERFACE ABSOLUTE SYSTEM BASOPHILS 0.02 0 - 0.2 x10E3 INTERFACE ABSOLUTE SYSTEM Specimen Performing Organization Address City/State/Zipcode Ph one Number INTERFACE SYSTEM INTERFACE SYSTEM Refer to clinic/hospital department documented in this encounter Visit Diagnoses Diagnosis Other malaise and fatigue - Primary documented in this encounter
--- OUTSIDE RECORDS SUMMARY | 2020-03-24 14:49 | XMS REPORT | Encounter Summary ---
Author Author [facility] Organization [facility] Address Unknown Phone Unavailable Care Team Providers Care Director Of Radiology Name Role Phone Shahram Mccallum MD PCP Unavailable Claus Couch MD PCP Encounter Details Care Team Description Date Type Department Junior Beal MD [address] [place] [address] Postsurgical States NEC (Primary Dx) 09/19/2007 Outpatient [facility] Cardiac Rehab [address] [place] [phone] Social History Date Tobacco Use Types Packs/Day Years Used Never Assessed Sex Assigned at Date Recorded Not on file Industry Job Start Date Occupation Not on file Not on file Not on file Travel End Travel History Travel Start No recent travel history available. documented as of this encounter Plan of Treatment Not on filedocumented as of this encounter Visit Diagnoses Diagnosis Postsurgical states NEC - Primary Other postprocedural status documented in this encounter
--- OUTSIDE RECORDS SUMMARY | 2020-03-24 14:49 | XMS REPORT | Encounter Summary ---
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
--- OUTSIDE RECORDS SUMMARY | 2020-03-24 14:49 | XMS REPORT | Encounter Summary ---
Author Author [facility] Organization [facility] Address Unknown Phone Unavailable Care Team Providers Care Microfilm Duplicating Unit Supervisor Name Role Phone Shahram Mccallum MD PCP Unavailable Claus Couch MD PCP Encounter Details Care Team Description Date Type Department Shahram Mccallum MD NO ADDRESS ON FILE Routine Medical Exam (Primary Dx) 02/03/2008 Outpatient [facility] Consol idated Historical [facility] [address] [place] [address] Social History Date Tobacco Use Types Packs/Day [...]
--- OUTSIDE RECORDS SUMMARY | 2020-03-24 14:49 | XMS REPORT | Encounter Summary ---
Author Author [facility] Organization [facility] Address Unknown Phone Unavailable Care Team Providers Care Controller Mechanic Name Role Phone PCP Unavailable Encounter Details Care Team Description Date Type Department Conversion, History 12/22/2007 Orders Only HIS CONVERSION Social History Date Tobacco Use Types Packs/Day Years Used Never Assessed Sex Assigned at Date Recorded Not on file Industry Job Start Date Occupation Not on file Not on file Not on file Travel End Travel History Travel Start No recent travel history available. documented as of this encounter Progress Notes * [facility] [place] Transcriptions - 08/07/2008 4:53 AM CDT 4 :53 AM CDT documented in this encounter Plan of Treatment Not on filedocumented as of this encounter Visit Diagnoses Not on filedocumented in this encounter
--- OUTSIDE RECORDS SUMMARY | 2020-03-24 14:50 | XMS REPORT | Encounter Summary ---
Author Author [facility] Organization [facility] Address Unknown Phone Unavailable Care Team Providers Care Library Historian Name Role Phone Shahram Mccallum MD PCP Unavailable Claus Couch MD PCP Encounter Details Care Team Description Date Type Department Shahram Mccallum MD NO ADDRESS ON FILE DM w/o Complication Type II (Primary Dx) 06/20/2007 Outpatient [facility] [address] [facility] Historical MEDICAID Social History Date Tobacco [...] Procedure Name Priority Date/Time Associated Diag nosis ALT Routine 06/20/2007 7:32 AM CDT AST Routine 06/20/2007 7:32 AM CDT HEMOGLOBIN A1C Routine 06/20/2007 7:32 AM CDT LIPID PANEL Routine 06/20/2007 7:32 AM CDT BASIC METABOLIC PANEL Routine 06/20/2007 7:32 AM CDT documented in this encounter Results * HEMOGLOBIN A1C (06/20/2007 7:32 AM CDT) HEMOGLOBIN A1C 6.0 0 - 6.0 % INTERFACE SYSTEM GLUCOSE, MEAN 124 mg/dl INTERFACE BLOOD SYSTEM Specimen Narrative Performed At [facility] INTERFACE SYSTEM Performing Organization Address City/State/Zipcode Ph one Number INTERFACE SYSTEM INTERFACE SYSTEM Refer to clinic/hospital department * ALT (06/20/2007 7:32 AM CDT) ALT 38 25 - 70 IU/L INTERFACE SYSTEM Specimen Narrative Performed At [facility] INTERFACE SYSTEM Performing Organization Address [facility] Ph one Number INTERFACE SYSTEM INTERFACE SYSTEM Refer to clinic/hospital department * AST (06/20/2007 7:32 AM CDT) AST 27 10 - 40 IU/L INTERFACE SYSTEM Specimen Narrative Performed At [facility] INTERFACE SYSTEM Performing Organization Address [facility] one Number INTERFACE SYSTEM INTERFACE SYSTEM Refer to clinic/hospital department * LIPID PANEL (06/20/2007 7:32 AM CDT) CHOLESTEROL 289 (H) 140 - 200 mg/dl INTERFACE SYSTEM TRIGLYCERIDE 525 (H) 0 - 199 mg/dl INTERFACE Comment: SYSTEM REFERENCE RANGE - TRIGLYCERIDES NORMAL LESS THAN 150 mg/dl BORDERLINE HIGH 150 - 199 mg/dl HIGH 200 - 499 mg/dl VERY HIGH GREATER THAN OR = 500 mg/dl HDL 43 27 - 67 mg/dl INTERFACE SYSTEM LDL 173 (H) <130 mg/dl INTERFACE CHOLESTEROL, Comment: SYSTEM [...] At [facility] INTERFACE SYSTEM Performing Organization Address [facility] one Number INTERFACE SYSTEM INTERFACE SYSTEM Refer to clinic/hospital department * BASIC METABOLIC PANEL (06/20/2007 7:32 AM CDT) GLUCOSE 119 (H) 70 - 110 mg/dl INTERFACE SYSTEM BUN 21.0 (H) 7 - 20 mg/dl INTERFACE SYSTEM CREATININE 1.0 0.8 - 1.3 mg/dl INTERFACE SYSTEM BUN/CREAT RATIO 21.0 (H) 10 - 20 INTERFACE SYSTEM GFR 82 >90 ml/min INTERFACE SYSTEM SODIUM 138 135 - 145 mmol/L INTERFACE SYSTEM POTASSIUM 4.0 3.3 - 4.8 mmol/L INTERFACE SYSTEM CHLORIDE 104 98 - 107 mmol/L INTERFACE SYSTEM CO2 25.3 22 - 31 mmol/L INTERFACE SYSTEM ANION GAP 13 4 - 20 INTERFACE SYSTEM CALCIUM 9.4 8.5 - 10.1 mg/dl INTERFACE SYSTEM Specimen Narrative Performed At [facility] INTERFACE SYSTEM Performing Organization Address [facility] one Number INTERFACE SYSTEM INTERFACE SYSTEM Refer to clinic/hospital department documented in this encounter Visit Diagnoses Diagnosis Type II or unspecified type diabetes me llitus without mention of complication, not stated as uncontrolled - Primary documented in this encounter
--- OUTSIDE RECORDS SUMMARY | 2020-03-24 14:50 | XMS REPORT | Encounter Summary ---
Author Author [facility] Organization [facility] Address Unknown Phone Unavailable Care Team Providers Care Sectional Belt Mold Assembler Name Role Phone Shahram Mccallum MD PCP Unavailable Claus Couch MD PCP Encounter Details Care Team Description Date Type Department Shahram Mccallum MD NO ADDRESS ON FILE Other Postoperative Infection (Primary D x) 05/20/2007 Outpatient [facility] Historical Social History Date Tobacco Use Types [...] of this encounter Visit Diagnoses Diagnosis Other postoperative infection - Primary documented in this encounter
--- OUTSIDE RECORDS SUMMARY | 2020-03-24 14:50 | XMS REPORT | Encounter Summary ---
Author Author [facility] Organization [facility] Address Unknown Phone Unavailable Care Team Providers Care Attorney Name Role Phone Shahram Mccallum MD PCP Unavailable Claus Couch MD PCP Encounter Details Care Team Description Date Type Department [place] MD [address] [place] [address] Painful Respiration (Primary Dx) 04/06/2007 Inpatient [facility] MED SURG TELEME TRY Historical [...] as of this encounter Visit Diagnoses Diagnosis Painful respiration - Primary documented in this encounter
--- OUTSIDE RECORDS SUMMARY | 2020-03-24 14:50 | XMS REPORT | Encounter Summary ---
Author Author [facility] Organization [facility] Address Unknown Phone Unavailable Care Team Providers Care Python Programmer Name Role Phone Shahram Mccallum MD PCP Unavailable Claus Couch MD PCP Encounter Details Care Team Description Date Type Department Shahram Mccallum MD NO ADDRESS ON FILE DM w/o Complication Type II (Primary Dx) 08/01/2007 Outpatient [facility] Historical Social [...]
--- OUTSIDE RECORDS SUMMARY | 2020-03-24 14:50 | XMS REPORT | Encounter Summary ---
Author Author [facility] Organization [facility] Address Unknown Phone Unavailable Care Team Providers Care Automation Engineering Manager Name Role Phone Shahram Mccallum MD PCP Unavailable Claus Couch MD PCP Encounter Details Care Team Description Date Type Department Mary Zhou MD NO ADDRESS ON FILE Follow-Up Examination, Following Unspeci fied Surgery (Primary Dx) 05/25/2007 Outpatient [facility] Consol idated Historical [facility] [address] [place] [address] Social History Date Tobacco Use Types Packs/Day Years Used Never Assessed Sex Assigned at Date Recorded Not on file Industry Job Start Date Occupation Not on file Not on file Not on file Travel End Travel History Travel Start No recent travel history available. documented as of this encounter Plan of Treatment Not on filedocumented as of this encounter Visit Diagnoses Diagnosis Follow-up examination, following unspec ified surgery - Primary documented in this encounter
--- OUTSIDE RECORDS SUMMARY | 2020-03-24 14:50 | XMS REPORT | Encounter Summary ---
Author Author [facility] Organization [facility] Address Unknown Phone Unavailable Care Team Providers Care Mix Mill Tender Name Role Phone Shahram Mccallum MD PCP Unavailable Claus Couch MD PCP Encounter Details Care Team Description Date Type Department Shahram Mccallum MD NO ADDRESS ON FILE Cor Athrscl-Uns Vessel (Primary Dx) 04/22/2007 Outpatient [facility] Consol idated Historical [facility] [address] [place] [address] Social History Date Tobacco Use Types Packs/Day [...] Coronary atherosclerosis of unspecified type of vessel, chemehuevi or graft - Primary documented in this encounter
--- OUTSIDE RECORDS SUMMARY | 2020-03-24 14:50 | XMS REPORT | Encounter Summary ---
Author Author [facility] Organization [facility] Address Unknown Phone Unavailable Care Team Providers Care Bookstore Manager Name Role Phone Shahram Mccallum MD PCP Unavailable Claus Couch MD PCP Encounter Details Care Team Description Date Type Department Shahram Mccallum MD NO ADDRESS ON FILE Speech Disturbance NEC (Primary Dx) 05/11/2007 Outpatient [facility] Surgery [address] [address] Social History Date Tobacco Use [...] Priority Date/Time Associated Diag nosis CBC WITH MANUAL Routine 05/11/2007 DIFFERENTIAL 7:21 PM CDT PHENYTOIN LEVEL, TOTAL Routine 05/11/2007 7:21 PM CDT COMPREHENSIVE METABOLIC Routine 05/11/2007 PANEL 7:21 PM CDT documented in this encounter Results * CBC WITH MANUAL DIFFERENTIAL (05/11/2007 7:21 PM CDT) WBC 6.92 4.0 - 10.8 x10E3 INTERFACE SYSTEM RBC 4.71 4.7 - 6.1 x10E6 INTERFACE SYSTEM HEMOGLOBIN 14.2 14.0 - 18.0 g/dL INTERFACE SYSTEM HEMATOCRIT 40.1 (L) 42 - 52 % INTERFACE SYSTEM MCV 85.1 80.0 - 97 fL INTERFACE SYSTEM MCH 30.2 27 - 33 pg INTERFACE SYSTEM MCHC 35.4 32 - 38 g/dL INTERFACE SYSTEM RDW 13.9 12.7 - 16.5 % INTERFACE SYSTEM PLATELETS 278 130 - 400 x10E3 INTERFACE SYSTEM MPV 6.8 (L) 7.4 - 10.4 fL INTERFACE SYSTEM NEUTROPHILS 76.9 (H) 37.0 - 75.0 % INTERFACE SYSTEM LYMPHOCYTES 15.6 10.0 - 50.0 % INTERFACE SYSTEM MONOCYTES 5.1 0.0 - 12.0 % INTERFACE SYSTEM EOSINOPHILS 2.1 0.0 - 7.0 % INTERFACE SYSTEM BASOPHILS 0.2 0.0 - 2.5 % INTERFACE SYSTEM NEUTROPHIL 5.32 2.0 - 6.9 x10E3 INTERFACE ABSOLUTE SYSTEM LYMPHOCYTE 1.08 0.6 - 3.4 x10E3 INTERFACE ABSOLUTE SYSTEM MONOCYTE 0.35 0.0 - 0.9 x10E3 INTERFACE ABSOLUTE SYSTEM EOSINOPHIL 0.15 0.0 - 0.7 x10E3 INTERFACE ABSOLUTE SYSTEM BASOPHILS 0.02 0 - 0.2 x10E3 INTERFACE ABSOLUTE SYSTEM EOSINOPHILS 1 % INTERFACE SYSTEM BANDS 2 % INTERFACE SYSTEM NEUTROPHILS, 75 % INTERFACE SEG SYSTEM LYMPHOCYTES 19 % INTERFACE SYSTEM MONOCYTE 3 % INTERFACE SYSTEM PLATELET EST. Normal INTERFACE SYSTEM WBC ESTIMATE Normal INTERFACE SYSTEM Specimen Performing Organization Address [facility] Ph one Number INTERFACE SYSTEM INTERFACE SYSTEM Refer to clinic/hospital department * PHENYTOIN LEVEL, TOTAL (05/11/2007 7:21 PM CDT) PHENYTOIN TOTAL 16.9 10 - 20 ug/ml INTERFACE SYSTEM Specimen Performing Organization Address [facility] Ph one Number INTERFACE SYSTEM INTERFACE SYSTEM Refer to clinic/hospital department * COMPREHENSIVE METABOLIC PANEL (05/11/2007 7:21 PM CDT) GLUCOSE 151 (H) 70 - 110 mg/dl INTERFACE SYSTEM BUN 18.0 7 - 20 mg/dl INTERFACE SYSTEM CREATININE 0.9 0.8 - 1.3 mg/dl INTERFACE SYSTEM BUN/CREAT RATIO 20.0 10 - 20 INTERFACE SYSTEM GFR 92 >90 ml/min INTERFACE SYSTEM SODIUM 135 135 - 145 mmol/L INTERFACE SYSTEM POTASSIUM 3.5 3.3 - 4.8 mmol/L INTERFACE SYSTEM CHLORIDE 95 (L) 98 - 107 mmol/L INTERFACE SYSTEM CO2 25.1 22 - 31 mmol/L INTERFACE SYSTEM ANION GAP 18 4 - 20 INTERFACE SYSTEM CALCIUM 8.1 (L) 8.5 - 10.1 mg/dl INTERFACE SYSTEM ALBUMIN 4.2 3.4 - 5.0 g/dl INTERFACE SYSTEM TOTAL PROTEIN 6.9 6.4 - 8.2 g/dl INTERFACE SYSTEM GLOBULIN (CALC) 2.7 INTERFACE SYSTEM ALBUMIN/GLOBULI 1.6 INTERFACE N RATIO SYSTEM BILIRUBIN TOTAL 0.4 <1.1 mg/dl INTERFACE SYSTEM ALKALINE 56 50 - 136 IU/L INTERFACE PHOSPHATASE SYSTEM AST 28 10 - 40 IU/L INTERFACE SYSTEM ALT 37 25 - 70 IU/L INTERFACE SYSTEM Specimen Performing Organization Address City/State/Zipcode Ph one Number INTERFACE SYSTEM INTERFACE SYSTEM Refer to clinic/hospital department documented in this encounter Visit Diagnoses Diagnosis Speech disturbance NEC - Primary Other speech disturbance documented in this encounter
--- OUTSIDE RECORDS SUMMARY | 2020-03-24 14:50 | XMS REPORT | Encounter Summary ---
Author Author [facility] Organization [facility] Address Unknown Phone Unavailable Care Team Providers Care Advertising Sales Executive Name Role Phone Shahram Mccallum MD PCP Unavailable Claus Couch MD PCP Encounter Details Care Team Description Date Type Department Shahram Mccallum MD NO ADDRESS ON FILE DM Manif NEC Type II (Primary Dx) 03/14/2007 Outpatient [facility] Historical Social [...]
--- OUTSIDE RECORDS SUMMARY | 2020-03-24 14:50 | XMS REPORT | Encounter Summary ---
Author Author [facility] Organization [facility] Address Unknown Phone Unavailable Care Team Providers Care Rn Examiner Name Role Phone Shahram Mccallum MD PCP Unavailable Claus Couch MD PCP Encounter Details Care Team Description Date Type Department Shahram Mccallum MD NO ADDRESS ON FILE DM w/o Complication Type I (Primary Dx) 02/24/2007 Outpatient [facility] Consol idated Historical [facility] [address] [place] [address] Social History Date Tobacco Use Types Packs/Day [...]
--- OUTSIDE RECORDS SUMMARY | 2020-03-24 14:50 | XMS REPORT | Encounter Summary ---
Author Author [facility] Organization [facility] Address Unknown Phone Unavailable Care Team Providers Care Traffic Court Magistrate Name Role Phone Shahram Mccallum MD PCP Unavailable Claus Couch MD PCP Encounter Details Care Team Description Date Type Department Mary Zhou MD NO ADDRESS ON FILE Follow-Up Examination, Following Unspeci fied Surgery (Primary Dx) 06/17/2007 Outpatient [facility] Consol idated Historical [facility] [address] [place] [address] Social History Date Tobacco Use Types Packs/Day [...]
--- OUTSIDE RECORDS SUMMARY | 2020-03-24 14:50 | XMS REPORT | Encounter Summary ---
Author Author [facility] Organization [facility] Address Unknown Phone Unavailable Care Team Providers Care Molder Setter Name Role Phone Shahram Mccallum MD PCP Unavailable Claus Couch MD PCP Encounter Details Care Team Description Date Type Department Shahram Mccallum MD NO ADDRESS ON FILE Pure Hypercholesterolem (Primary Dx) 02/17/2007 Outpatient [facility] [address] [facility] Historical MEDICAID Social History Date Tobacco [...] as of this encounter Visit Diagnoses Diagnosis Pure hypercholesterolem - Primary Pure hypercholesterolemia documented in this encounter
--- OUTSIDE RECORDS SUMMARY | 2020-03-24 14:50 | XMS REPORT | Encounter Summary ---
Author Author [facility] Organization [facility] Address Unknown Phone Unavailable Care Team Providers Care Die Maker Apprentice Name Role Phone Shahram Mccallum MD PCP Unavailable Claus Couch MD PCP Encounter Details Care Team Description Date Type Department Walter Oconnor MD [address] [facility] [address] [place] [phone] No Proc for Reasons NEC (Primary Dx) 05/23/2007 Outpatient HIS [facility] Historical [facility] Social History Date Tobacco [...]
--- OUTSIDE RECORDS SUMMARY | 2020-03-24 14:50 | XMS REPORT | Encounter Summary ---
Author Author [facility] Organization [facility] Address Unknown Phone Unavailable Care Team Providers Care Respiratory Physician Name Role Phone Shahram Mccallum MD PCP Unavailable Claus Couch MD PCP Encounter Details Care Team Description Date Type Department Jada Fernandez MD NO ADDRESS ON FILE Headache (Primary Dx) 03/03/2007 Outpatient [facility] Consol idated Historical [address] [address] Social History Date Tobacco Use Types Packs/Day Years Used Never Assessed Sex Assigned at Date Recorded Not on file Industry Job Start Date Occupation Not on file Not on file Not on file Travel End Travel History Travel Start No recent travel history available. documented as of this encounter Plan of Treatment Not on filedocumented as of this encounter Visit Diagnoses Diagnosis Headache(784.0) - Primary Headache documented in this encounter
--- OUTSIDE RECORDS SUMMARY | 2020-03-24 14:50 | XMS REPORT | Encounter Summary ---
Author Author [facility] Organization [facility] Address Unknown Phone Unavailable Care Team Providers Care Sleeve Setter Lockstitch Name Role Phone Shahram Mccallum MD PCP Unavailable Claus Couch MD PCP Encounter Details Care Team Description Date Type Department Mary Zhou MD NO ADDRESS ON FILE Follow-Up Examination, Following Unspeci fied Surgery (Primary Dx) 05/20/[address] [facility] Consol idated Historical [facility] [address] [place] [address] Social History Date Tobacco Use Types Packs/Day [...]
--- OUTSIDE RECORDS SUMMARY | 2020-03-24 14:50 | XMS REPORT | Encounter Summary ---
Author Author [facility] Organization [facility] Address Unknown Phone Unavailable Care Team Providers Care Licensed Appraiser Name Role Phone Shahram Mccallum MD PCP Unavailable Claus Couch MD PCP Encounter Details Care Team Description Date Type Department Shahram Mccallum MD NO ADDRESS ON FILE DM w/o Complication Type II (Primary Dx) 05/20/2007 Outpatient [facility] Historical Social [...]
--- OUTSIDE RECORDS SUMMARY | 2020-03-24 14:50 | XMS REPORT | Encounter Summary ---
Author Author [facility] Organization [facility] Address Unknown Phone Unavailable Care Team Providers Care Bolt Machine Operator Name Role Phone Shahram Mccallum MD PCP Unavailable Claus Couch MD PCP Encounter Details Care Team Description Date Type Department Shahram Mccallum MD NO ADDRESS ON FILE Other Postoperative Infection (Primary D x) 06/28/2007 Outpatient [facility] Historical Social [...]
--- OUTSIDE RECORDS SUMMARY | 2020-03-24 14:50 | XMS REPORT | Encounter Summary ---
Author Author [facility] Organization [facility] Address Unknown Phone Unavailable Care Team Providers Care Tire Bladder Maker Name Role Phone Shahram Mccallum MD PCP Unavailable Claus Couch MD PCP Encounter Details Care Team Description Date Type Department Shahram Mccallum MD NO ADDRESS ON FILE Vomiting Alone (Primary Dx) 05/13/2007 Outpatient [facility] Ul[facility]ound [address] [place] [address] Social History Date Tobacco Use [...] as of this encounter Visit Diagnoses Diagnosis Vomiting alone - Primary documented in this encounter
--- OUTSIDE RECORDS SUMMARY | 2020-03-24 14:50 | XMS REPORT | Encounter Summary ---
Author Author [facility] Organization [facility] Address Unknown Phone Unavailable Care Team Providers Care Slag Motor Operator Name Role Phone Shahram Mccallum MD PCP Unavailable Encounter Details Care Team Description Date Type Department Walter Oconnor MD [address] [place] [address] [address] [place] [phone] 08/24/2007 Abstract [facility] [address] [place] [phone] Social History Date Tobacco Use Types Packs/Day [...]
--- OUTSIDE RECORDS SUMMARY | 2020-03-24 14:50 | XMS REPORT | Encounter Summary ---
Author Author [facility] Organization [facility] Address Unknown Phone Unavailable Care Team Providers Care Tight Cooper Name Role Phone Shahram Mccallum MD PCP Unavailable Claus Couch MD PCP Encounter Details Care Team Description Date Type Department Mary Zhou MD NO ADDRESS ON FILE Vomiting Alone (Primary Dx) 05/16/2007 Outpatient [facility] Consol idated Historical [facility] [address] [place] [address] Social History Date Tobacco Use Types Packs/Day [...]
--- OUTSIDE RECORDS SUMMARY | 2020-03-24 14:50 | XMS REPORT | Encounter Summary ---
Author Author [facility] Organization [facility] Address Unknown Phone Unavailable Care Team Providers Care Painter Touch Up Name Role Phone Shahram Mccallum MD PCP Unavailable Claus Couch MD PCP Encounter Details Care Team Description Date Type Department Shahram Mccallum MD NO ADDRESS ON FILE Other Postoperative Infection (Primary D x) 07/07/2007 Outpatient [facility] Historical Social [...]
--- OUTSIDE RECORDS SUMMARY | 2020-03-24 14:50 | XMS REPORT | Encounter Summary ---
Author Author [facility] Organization [facility] Address Unknown Phone Unavailable Care Team Providers Care Sagger Maker Name Role Phone Shahram Mccallum MD PCP Unavailable Encounter Details Care Team Description Date Type Department Walter Oconnor MD [address] [place] [address] 320/330 [place] Chao [phone] 08/22/2007 Abstract [facility] [address] [place] [phone] Social History Date Tobacco Use Types Packs/Day [...]
--- OUTSIDE RECORDS SUMMARY | 2020-03-24 14:50 | XMS REPORT | Encounter Summary ---
Author Author [facility] Organization [facility] Address Unknown Phone Unavailable Care Team Providers Care Abrasive Grader Name Role Phone Shahram Mccallum MD PCP Unavailable Claus Couch MD PCP Encounter Details Care Team Description Date Type Department Shahram Mccallum MD NO ADDRESS ON FILE Precordial Pain (Primary Dx) 08/22/2007 Emergency [facility] Emergency Department [address] [address] Social History Date Tobacco Use [...] Procedure Name Priority Date/Time Associated Diag nosis CARDIAC ENZYMES Routine 08/23/2007 2:51 AM CDT CBC WITH MANUAL Routine 08/22/2007 DIFFERENTIAL 2:42 PM CDT TROPONIN Routine 08/22/2007 2:42 PM CDT BRAIN NATRIURETIC Routine 08/22/2007 PEPTIDE, BNP OR PROBNP 2:42 PM CDT MYOGLOBIN Routine 08/22/2007 2:42 PM CDT MAGNESIUM LEVEL Routine 08/22/2007 2:42 PM CDT COMPREHENSIVE METABOLIC Routine 08/22/2007 PANEL 2:42 PM CDT documented in this encounter Results * CARDIAC ENZYMES (08/23/2007 2:51 AM CDT) Pathologist [facility] INTERPRETATION See below. INTERFACE Comment: SYSTEM INTERPRETATION - 08/23/07 0807 Normal initial cardiac marker results. Linda Elise Specimen Narrative Performed At CARDIAC TROP-12HR TROP-12 HR from [id number]. INT ERFACE SYSTEM CARDIAC Final: FINAL from [id number] . Performing Organization Address City/State/[facility] Ph one Number INTERFACE SYSTEM INTERFACE SYSTEM Refer to clinic/hospital department * CBC WITH MANUAL DIFFERENTIAL (08/22/2007 2:42 PM CDT) WBC 5.88 4.0 - 10.8 x10E3 INTERFACE SYSTEM RBC 4.25 (L) 4.7 - 6.1 x10E6 INTERFACE SYSTEM HEMOGLOBIN 12.9 (L) 14.0 - 18.0 g/dL INTERFACE SYSTEM HEMATOCRIT 36.0 (L) 42 - 52 % INTERFACE SYSTEM MCV 84.6 80.0 - 97 fL INTERFACE SYSTEM MCH 30.2 27 - 33 pg INTERFACE SYSTEM MCHC 35.7 32 - 38 g/dL INTERFACE SYSTEM RDW 14.4 12.7 - 16.5 % INTERFACE SYSTEM PLATELETS 347 130 - 400 x10E3 INTERFACE SYSTEM MPV 8.0 7.4 - 10.4 fL INTERFACE SYSTEM NEUTROPHILS 58.9 37.0 - 75.0 % INTERFACE SYSTEM LYMPHOCYTES 30.8 10.0 - 50.0 % INTERFACE SYSTEM MONOCYTES 5.6 0.0 - 12.0 % INTERFACE SYSTEM EOSINOPHILS 4.5 0.0 - 7.0 % INTERFACE SYSTEM BASOPHILS 0.2 0.0 - 2.5 % INTERFACE SYSTEM NEUTROPHIL 3.47 2.0 - 6.9 x10E3 INTERFACE ABSOLUTE SYSTEM LYMPHOCYTE 1.81 0.6 - 3.4 x10E3 INTERFACE ABSOLUTE SYSTEM MONOCYTE 0.33 0.0 - 0.9 x10E3 INTERFACE ABSOLUTE SYSTEM EOSINOPHIL 0.26 0.0 - 0.7 x10E3 INTERFACE ABSOLUTE SYSTEM BASOPHILS 0.01 0 - 0.2 x10E3 INTERFACE ABSOLUTE SYSTEM EOSINOPHILS 3 % INTERFACE SYSTEM BANDS 1 % INTERFACE SYSTEM NEUTROPHILS, 65 % INTERFACE SEG SYSTEM LYMPHOCYTES 24 % INTERFACE SYSTEM MONOCYTE 7 % INTERFACE SYSTEM PLATELET EST. Normal INTERFACE SYSTEM WBC ESTIMATE Normal INTERFACE SYSTEM Specimen Performing Organization Address City/[facility]/Zipcode Ph one Number INTERFACE SYSTEM INTERFACE SYSTEM Refer to clinic/hospital department * TROPONIN (08/22/2007 2:42 PM CDT) TROPONIN I Less than 0.04 0 - 0.4 ng/ml INTERFACE SYSTEM Specimen Narrative Performed At CARDIAC NYLA-0HR NYLA-0 HR from [id number]. INTERFA CE SYSTEM CARDIAC TROP-0HR TROP-0 HR from [id number]. Performing Organization Address [facility] one Number INTERFACE SYSTEM INTERFACE SYSTEM Refer to clinic/hospital department * MYOGLOBIN (08/22/2007 2:42 PM CDT) MYOGLOBIN, 50 16 - 97 ng/ml INTERFACE PLASMA SYSTEM Specimen Narrative Performed At CARDIAC NYLA-0HR NYLA-0 HR from [id number]. INTERFA CE SYSTEM CARDIAC TROP-0HR TROP-0 HR from [id number]. Performing Organization Address [facility] one Number INTERFACE SYSTEM INTERFACE SYSTEM Refer to clinic/hospital department * BRAIN NATRIURETIC PEPTIDE, BNP OR PROBNP (08/22/2007 2:42 PM CDT) BRAIN 122 0 - 125 pg/ml INTERFACE NATRIURETIC SYSTEM PEPTIDE Specimen Performing Organization Address [facility] one Number INTERFACE SYSTEM INTERFACE SYSTEM Refer to clinic/hospital department * MAGNESIUM LEVEL (08/22/2007 2:42 PM CDT) MAGNESIUM 1.8 1.8 - 2.4 mg/dl INTERFACE SYSTEM Specimen Performing Organization Address [facility] one Number INTERFACE SYSTEM INTERFACE SYSTEM Refer to clinic/hospital department * COMPREHENSIVE METABOLIC PANEL (08/22/2007 2:42 PM CDT) GLUCOSE 94 70 - 110 mg/dl INTERFACE SYSTEM BUN 21.0 (H) 7 - 20 mg/dl INTERFACE SYSTEM CREATININE 0.9 0.8 - 1.3 mg/dl INTERFACE SYSTEM BUN/CREAT RATIO 23.3 (H) 10 - 20 INTERFACE SYSTEM GFR 92 >90 ml/min INTERFACE SYSTEM SODIUM 138 135 - 145 mmol/L INTERFACE SYSTEM POTASSIUM 4.1 3.3 - 4.8 mmol/L INTERFACE SYSTEM CHLORIDE 103 98 - 107 mmol/L INTERFACE SYSTEM CO2 27.2 22 - 31 mmol/L INTERFACE SYSTEM ANION GAP 12 4 - 20 INTERFACE SYSTEM CALCIUM 9.0 8.5 - 10.1 mg/dl INTERFACE SYSTEM ALBUMIN 4.2 3.4 - 5.0 g/dl INTERFACE SYSTEM TOTAL PROTEIN 7.3 6.4 - 8.2 g/dl INTERFACE SYSTEM GLOBULIN (CALC) 3.1 INTERFACE SYSTEM ALBUMIN/GLOBULI 1.4 INTERFACE N RATIO SYSTEM BILIRUBIN TOTAL 0.3 <1.1 mg/dl INTERFACE SYSTEM ALKALINE 51 50 - 136 IU/L INTERFACE PHOSPHATASE SYSTEM AST 24 10 - 40 IU/L INTERFACE SYSTEM ALT 38 25 - 70 IU/L INTERFACE SYSTEM Specimen Performing Organization Address City/State/Zipcode Ph one Number INTERFACE SYSTEM INTERFACE SYSTEM Refer to clinic/hospital department documented in this encounter Visit Diagnoses Diagnosis Precordial pain - Primary documented in this encounter
--- OUTSIDE RECORDS SUMMARY | 2020-03-24 14:50 | XMS REPORT | Encounter Summary ---
Author Author [facility] Organization [facility] Address Unknown Phone Unavailable Care Team Providers Care Finisher [employer] Name Role Phone Shahram Mccallum MD PCP Unavailable Claus Couch MD PCP Encounter Details Care Team Description Date Type Department Jaime III, Oliverio Magdaleno MD [address] [place] [address] Hematuria (Primary Dx) 07/29/2007 [facility]patient [facility] Historical [address] [phone] Social History Date Tobacco Use Types Packs/Day Years Used Never Assessed Sex Assigned at Date Recorded Not on file Industry Job Start Date Occupation Not on file Not on file Not on file Travel End Travel History Travel Start No recent travel history available. documented as of this encounter Plan of Treatment Not on filedocumented as of this encounter Visit Diagnoses Diagnosis Hematuria - Primary documented in this encounter
--- OUTSIDE RECORDS SUMMARY | 2020-03-24 14:50 | XMS REPORT | Encounter Summary ---
Author Author [facility] Organization [facility] Address Unknown Phone Unavailable Care Team Providers Care Pearler Name Role Phone Shahram Mccallum MD PCP Unavailable Claus Couch MD PCP Encounter Details Care Team Description Date Type Department Shahram Mccallum MD NO ADDRESS ON FILE Cor Athrscl-Uns Vessel (Primary Dx) 06/27/2007 Outpatient [facility] Consol idated Historical [facility] [address] [place] [address] Social History Date Tobacco Use Types Packs/Day [...] of unspecified type of vessel, [place] or graft - Primary documented in this encounter
--- OUTSIDE RECORDS SUMMARY | 2020-03-24 14:50 | XMS REPORT | Encounter Summary ---
Author Author [facility] Organization [facility] Address Unknown Phone Unavailable Care Team Providers Care Entrepreneurial Finance Professor Name Role Phone Shahram Mccallum MD PCP Unavailable Encounter Details Care Team Description Date Type Department Walter Oconnor MD [address] [facility] [phone] [place] Chao [phone] 08/23/2007 Abstract [facility] [address] [place] [address] Social History Date Tobacco Use [...] Associated Diag nosis CL LT HEART Routine 08/23/2007 CATHETERIZATION documented in this encounter Results * CL LT HEART CATHETERIZATION (08/23/2007) Narrative Performed At This result has an attachment that is n ot available. Performing Organization Address City/State/Zipcode Ph one Number EXTERNAL RADIOLOGY documented in this encounter Visit Diagnoses Not on filedocumented in this encounter
--- OUTSIDE RECORDS SUMMARY | 2020-03-24 14:50 | XMS REPORT | Encounter Summary ---
Author Author [facility] Organization [facility] Address Unknown Phone Unavailable Care Team Providers Care Lead Systems Engineer Name Role Phone Shahram Mccallum MD PCP Unavailable Cluas Couch MD PCP Encounter Details Care Team Description Date Type Department Mary Zhou MD NO ADDRESS ON FILE Calculus of GB w/ Other Cystitis (Primar y Dx) 05/17/2007 Outpatient [facility] ICU OVERFLOW Historical Social History [...] Procedure Name Priority Date/Time Associated Diag nosis GLUCOSE LEVEL Routine 05/17/2007 6:55 AM CDT documented in this encounter Results * GLUCOSE LEVEL (05/17/2007 6:55 AM CDT) GLUCOSE 156 (H) 70 - 110 mg/dl INTERFACE SYSTEM Specimen Narrative Performed At Preop Test? Y INTERFACE SYSTEM COMMENT: OPS 9 Performing Organization Address City/State/Zipcode Ph one Number INTERFACE SYSTEM INTERFACE SYSTEM Refer to clinic/hospital department documented in this encounter Visit Diagnoses Diagnosis Calculus of gallbladder with other chol ecystitis, without mention of obstruction - Primary documented in this encounter
--- OUTSIDE RECORDS SUMMARY | 2020-03-24 14:50 | XMS REPORT | Encounter Summary ---
Author Author [facility] Organization [facility] Address Unknown Phone Unavailable Care Team Providers Care Retail Maintenance Technician Name Role Phone Shahram Mccallum MD PCP Unavailable Claus Couch MD PCP Encounter Details Care Team Description Date Type Department Mary Zhou MD NO ADDRESS ON FILE Abn Urine Findings NEC (Primary Dx) 05/20/2007 Outpatient [facility] [address] [facility] Historical MEDICAID Social History Date Tobacco [...] Associated Diag nosis URINALYSIS WITH REFLEX Routine 05/20/2007 CULTURE 11:03 AM CDT CBC WITH DIFFERENTIAL Routine 05/20/2007 11:00 AM CDT COMPREHENSIVE METABOLIC Routine 05/20/2007 PANEL 11:00 AM CDT documented in this encounter Results * URINALYSIS WITH REFLEX CULTURE (05/20/2007 11:03 AM CDT) GLUCOSE UA Negative Negative mg/dl INTERFACE SYSTEM BILIRUBIN UA Negative Negative INTERFACE SYSTEM KETONES UA Negative Negative mg/dl INTERFACE SYSTEM SPECIFIC <=1.005 INTERFACE GRAVITY UA SYSTEM PH UA 7.5 INTERFACE SYSTEM PROTEIN UA Negative Negative mg/dl INTERFACE SYSTEM UROBILINOGEN UA 0.2 0.2 - 1.0 EU/dl INTERFACE SYSTEM NITRITE UA Negative Negative INTERFACE SYSTEM BLOOD UA Negative Negative INTERFACE SYSTEM LEUKOCYTE Small (H) Negative INTERFACE ESTERASE UA SYSTEM WBC UA 5-10 (H) 0 - 5 /HPF INTERFACE SYSTEM RBC UA Negative 0 - 3 /HPF INTERFACE SYSTEM EPITHELIAL 2+ sq INTERFACE CELLS, URINE SYSTEM WBC CLUMPS Neg Negative /LPF INTERFACE SYSTEM CASTS, URINE Neg 0-4 Hyaline /LPF INTERFACE SYSTEM CRYSTALS, URINE Neg INTERFACE SYSTEM BACTERIA UA NEG NEG INTERFACE SYSTEM COMMENT, URINE See Culture Report. INTERFACE SYSTEM Specimen Narrative Performed At Preop Test? N INTERFACE SYSTEM Performing Organization Address [facility] one Number INTERFACE SYSTEM INTERFACE SYSTEM Refer to clinic/hospital department * CBC WITH DIFFERENTIAL (05/20/2007 11:00 AM CDT) WBC 6.51 4.0 - 10.8 x10E3 INTERFACE SYSTEM RBC 4.34 (L) 4.7 - 6.1 x10E6 INTERFACE SYSTEM HEMOGLOBIN 13.1 (L) 14.0 - 18.0 g/dL INTERFACE SYSTEM HEMATOCRIT 37.1 (L) 42 - 52 % INTERFACE SYSTEM MCV 85.5 80.0 - 97 fL INTERFACE SYSTEM MCH 30.1 27 - 33 pg INTERFACE SYSTEM MCHC 35.2 32 - 38 g/dL INTERFACE SYSTEM RDW 14.0 12.7 - 16.5 % INTERFACE SYSTEM PLATELETS 406 (H) 130 - 400 x10E3 INTERFACE SYSTEM MPV 6.8 (L) 7.4 - 10.4 fL INTERFACE SYSTEM NEUTROPHILS 63.3 37.0 - 75.0 % INTERFACE SYSTEM LYMPHOCYTES 23.3 10.0 - 50.0 % INTERFACE SYSTEM MONOCYTES 5.6 0.0 - 12.0 % INTERFACE SYSTEM EOSINOPHILS 7.5 (H) 0.0 - 7.0 % INTERFACE SYSTEM BASOPHILS 0.4 0.0 - 2.5 % INTERFACE SYSTEM NEUTROPHIL 4.12 2.0 - 6.9 x10E3 INTERFACE ABSOLUTE SYSTEM LYMPHOCYTE 1.52 0.6 - 3.4 x10E3 INTERFACE ABSOLUTE SYSTEM MONOCYTE 0.36 0.0 - 0.9 x10E3 INTERFACE ABSOLUTE SYSTEM EOSINOPHIL 0.49 0.0 - 0.7 x10E3 INTERFACE ABSOLUTE SYSTEM BASOPHILS 0.03 0 - 0.2 x10E3 INTERFACE ABSOLUTE SYSTEM Specimen Narrative Performed At Preop Test? N INTERFACE SYSTEM Performing Organization Address [facility] Ph one Number INTERFACE SYSTEM INTERFACE SYSTEM Refer to clinic/hospital department * COMPREHENSIVE METABOLIC PANEL (05/20/2007 11:00 AM CDT) GLUCOSE 130 (H) 70 - 110 mg/dl INTERFACE SYSTEM BUN 13.0 7 - 20 mg/dl INTERFACE SYSTEM CREATININE 0.8 0.8 - 1.3 mg/dl INTERFACE SYSTEM BUN/CREAT RATIO 16.3 10 - 20 INTERFACE SYSTEM GFR 106 >90 ml/min INTERFACE SYSTEM SODIUM 137 135 - 145 mmol/L INTERFACE SYSTEM POTASSIUM 4.2 3.3 - 4.8 mmol/L INTERFACE SYSTEM CHLORIDE 97 (L) 98 - 107 mmol/L INTERFACE SYSTEM CO2 28.3 22 - 31 mmol/L INTERFACE SYSTEM ANION GAP 16 4 - 20 INTERFACE SYSTEM CALCIUM 9.3 8.5 - 10.1 mg/dl INTERFACE SYSTEM ALBUMIN 4.0 3.4 - 5.0 g/dl INTERFACE SYSTEM TOTAL PROTEIN 7.1 6.4 - 8.2 g/dl INTERFACE SYSTEM GLOBULIN (CALC) 3.1 INTERFACE SYSTEM ALBUMIN/GLOBULI 1.3 INTERFACE N RATIO SYSTEM BILIRUBIN TOTAL 0.4 <1.1 mg/dl INTERFACE SYSTEM ALKALINE 86 50 - 136 IU/L INTERFACE PHOSPHATASE SYSTEM AST 97 (H) 10 - 40 IU/L INTERFACE SYSTEM ALT 119 (H) 25 - 70 IU/L INTERFACE SYSTEM Specimen Performing Organization Address City/State/Zipcode Ph one Number INTERFACE SYSTEM INTERFACE SYSTEM Refer to clinic/hospital department documented in this encounter Visit Diagnoses Diagnosis Abn urine findings NEC - Primary Other nonspecific finding on examinatio n of urine documented in this encounter
--- OUTSIDE RECORDS SUMMARY | 2020-03-24 14:50 | XMS REPORT | Encounter Summary ---
Author Author [facility] Organization [facility] Address Unknown Phone Unavailable Care Team Providers Care Equity Research Analyst Name Role Phone Shahram Mccallum MD PCP Unavailable Claus Couch MD PCP Encounter Details Care Team Description Date Type Department Shahram Mccallum MD NO ADDRESS ON FILE Unspecified Chest Pain (Primary Dx) 08/22/2007 Outpatient [facility] [address] [place] [address] Social History Date Tobacco Use [...]
--- OUTSIDE RECORDS SUMMARY | 2020-03-24 14:51 | XMS REPORT | Encounter Summary ---
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
--- OUTSIDE RECORDS SUMMARY | 2020-03-24 14:51 | XMS REPORT | Encounter Summary ---
Author Author [facility] Organization [facility] Address Unknown Phone Unavailable Care Team Providers Care Fishing Worker Name Role Phone Shahram Mccallum MD PCP Unavailable Claus Couch MD PCP Encounter Details Care Team Description Date Type Department Walter Oconnor MD [address] [facility] [address] [place] [phone] No Proc for Reasons NEC (Primary Dx) 08/16/2006 Outpatient [facility] Historical [place] [place] Social History Date Tobacco [...]
--- OUTSIDE RECORDS SUMMARY | 2020-03-24 14:51 | XMS REPORT | Encounter Summary ---
Author Author [facility] Organization [facility] Address Unknown Phone Unavailable Care Team Providers Care Ignition Expert Name Role Phone Shahram Mccallum MD PCP Unavailable Claus Couch MD PCP Encounter Details Care Team Description Date Type Department Shahram Mccallum MD NO ADDRESS ON FILE Cor Athrscl-Uns Vessel (Primary Dx) 07/19/2006 Outpatient [facility] Consol idated Historical [facility] [address] [place] [address] Social History Date Tobacco Use Types Packs/Day [...] Coronary atherosclerosis of unspecified type of vessel, [place] or graft - Primary documented in this encounter
--- OUTSIDE RECORDS SUMMARY | 2020-03-24 14:51 | XMS REPORT | Encounter Summary ---
Author Author [facility] Organization [facility] Address Unknown Phone Unavailable Care Team Providers Care Collections Rep Name Role Phone Shahram Mccallum MD PCP Unavailable Claus Couch MD PCP Encounter Details Care Team Description Date Type Department Shahram Mccallum MD NO ADDRESS ON FILE Unspecified Chest Pain (Primary Dx) 09/16/2006 Outpatient [facility] Consol idated Historical [facility] [address] [place] [address] Social History Date Tobacco Use Types Packs/Day [...]
--- OUTSIDE RECORDS SUMMARY | 2020-03-24 14:51 | XMS REPORT | Encounter Summary ---
Author Author [facility] Organization [facility] Address Unknown Phone Unavailable Care Team Providers Care Associate Program Manager Name Role Phone Shahram Mccallum MD PCP Unavailable Claus Couch MD PCP Encounter Details Care Team Description Date Type Department Shahram Mccallum MD NO ADDRESS ON FILE Cor Athrscl-Uns Vessel (Primary Dx) 10/26/2006 Outpatient [facility] Consol idated Historical [facility] [address] [place] [address] Social History Date Tobacco Use Types Packs/Day [...] Coronary atherosclerosis of unspecified type of vessel, [place] or graft - Primary documented in this encounter
--- OUTSIDE RECORDS SUMMARY | 2020-03-24 14:51 | XMS REPORT | Encounter Summary ---
Author Author [facility] Organization [facility] Address Unknown Phone Unavailable Care Team Providers Care Manager Erp Name Role Phone Shahram Mccallum MD PCP Unavailable Claus Couch MD PCP Encounter Details Care Team Description Date Type Department Shahram Mccallum MD NO ADDRESS ON FILE Dermatophytosis of Nail (Primary Dx) 01/04/2007 Outpatient [facility] Historical Social [...] as of this encounter Visit Diagnoses Diagnosis Dermatophytosis of nail - Primary documented in this encounter
--- OUTSIDE RECORDS SUMMARY | 2020-03-24 14:51 | XMS REPORT | Encounter Summary ---
Author Author [facility] Organization [facility] Address Unknown Phone Unavailable Care Team Providers Care Animal Warden Name Role Phone Shahram Mccallum MD PCP Unavailable Claus Couch MD PCP Encounter Details Care Team Description Date Type Department Shahram Mccallum MD NO ADDRESS ON FILE Acute Sinusitis, Unspecified (Primary Dx ) 12/30/2006 Outpatient [facility] Consol idated Historical [facility] [address] [place] [address] Social History Date Tobacco Use Types Packs/Day Years Used Never Assessed Sex Assigned at Date Recorded Not on file Industry Job Start Date Occupation Not on file Not on file Not on file Travel End Travel History Travel Start No recent travel history available. documented as of this encounter Plan of Treatment Not on filedocumented as of this encounter Visit Diagnoses Diagnosis Acute sinusitis, unspecified - Primary documented in this encounter
--- OUTSIDE RECORDS SUMMARY | 2020-03-24 14:51 | XMS REPORT | Encounter Summary ---
Author Author [facility] Organization [facility] Address Unknown Phone Unavailable Care Team Providers Care Director Of Group Counseling Program Name Role Phone Shahram Mccallum MD PCP Unavailable Claus Couch MD PCP Encounter Details Care Team Description Date Type Department Shahram Mccallum MD NO ADDRESS ON FILE Unspecified Chest Pain (Primary Dx) 08/28/2006 Emergency [facility] Emergency Department [address] [address] Social History Date Tobacco Use [...] Date/Time Associated Diag nosis LIPID PANEL Routine 08/29/2006 5:20 AM CDT CARDIAC ENZYMES Routine 08/29/2006 12:45 AM CDT TROPONIN Routine 08/29/2006 12:45 AM CDT TROPONIN Routine 08/28/2006 6:28 PM CDT TROPONIN Routine 08/28/2006 3:45 PM CDT MYOGLOBIN Routine 08/28/2006 3:45 PM CDT CBC WITH MANUAL Routine 08/28/2006 DIFFERENTIAL 12:55 PM CDT TROPONIN Routine 08/28/2006 12:55 PM CDT BRAIN NATRIURETIC Routine 08/28/2006 PEPTIDE, BNP OR PROBNP 12:55 PM CDT MYOGLOBIN Routine 08/28/2006 12:55 PM CDT MAGNESIUM LEVEL Routine 08/28/2006 12:55 PM CDT COMPREHENSIVE METABOLIC Routine 08/28/2006 PANEL 12:55 PM CDT documented in this encounter Results * LIPID PANEL (08/29/2006 5:20 AM CDT) [facility] CHOLESTEROL 323 (H) 140 - 200 mg/dl INTERFACE SYSTEM TRIGLYCERIDE 1,120 (H) 0 - 199 mg/dl INTERFACE Comment: SYSTEM REFERENCE RANGE - TRIGLYCERIDES NORMAL LESS THAN 150 mg/dl BORDERLINE HIGH 150 - 199 mg/dl HIGH 200 - 499 mg/dl VERY HIGH GREATER THAN OR = 500 mg/dl HDL 31 27 - 67 mg/dl INTERFACE SYSTEM LDL 161 (H) <130 mg/dl INTERFACE CHOLESTEROL, Comment: SYSTEM [...] COMMENT: FASTING INTERFACE SYSTEM Performing Organization Address [facility] one [facility] INTERFACE SYSTEM INTERFACE SYSTEM Refer to clinic/hospital department * CARDIAC ENZYMES (08/29/2006 12:45 AM CDT) INTERPRETATION See below. INTERFACE Comment: SYSTEM INTERPRETATION - 08/29/06 0943 Normal cardiac marker series, no evidence of acute myocardial infarction. Linda Elise. Specimen Narrative Performed At CARDIAC TROP-12HR TROP-12 HR from 1021:[id number]. [employer] CARDIAC Final: FINAL from 1021:[id number] . Performing Organization Address [facility] one Number INTERFACE SYSTEM INTERFACE SYSTEM Refer to clinic/hospital department * TROPONIN (08/29/2006 12:45 AM CDT) TROPONIN I 0.05 0 - 0.4 ng/ml INTERFACE SYSTEM Specimen Narrative Performed At CARDIAC TROP-12HR TROP-12 HR from 1021:[id number]. [employer] CARDIAC Final: FINAL from 1021:[id number] . Performing Organization Address [facility] one Number INTERFACE SYSTEM INTERFACE SYSTEM Refer to clinic/hospital department * TROPONIN (08/28/2006 6:28 PM CDT) TROPONIN I 0.04 0 - 0.4 ng/ml INTERFACE SYSTEM Specimen Narrative Performed At CARDIAC TROP-6HR TROP-6 HR from 1021:[id number]. INTER FACE SYSTEM CARDIAC Interim: CAR6 from 1021:[id number]. Performing Organization Address [facility] Ph one Number INTERFACE SYSTEM INTERFACE SYSTEM Refer to clinic/hospital department * TROPONIN (08/28/2006 3:45 PM CDT) TROPONIN I Less than 0.04 0 - 0.4 ng/ml INTERFACE SYSTEM Specimen Narrative Performed At CARDIAC NYLA-3HR NYLA-3 HR from 1021:[id number]. INTERFA CE SYSTEM CARDIAC TROP-3HR TROP-3 HR from 1021:[id number]. CARDIAC Interim: CAR3 from 1021:[id number] S. Performing Organization Address [facility] Ph one Number INTERFACE SYSTEM INTERFACE SYSTEM Refer to clinic/hospital department * MYOGLOBIN (08/28/2006 3:45 PM CDT) MYOGLOBIN, 39 16 - 97 ng/ml INTERFACE PLASMA SYSTEM Specimen Narrative Performed At CARDIAC NYLA-3HR NYLA-3 HR from 1021:[id number]. INTERFA CE SYSTEM CARDIAC TROP-3HR TROP-3 HR from 1021:[id number]. CARDIAC Interim: CAR3 from 1021:[id number] S. Performing Organization Address [facility] one Number INTERFACE SYSTEM INTERFACE SYSTEM Refer to clinic/hospital department * CBC WITH MANUAL DIFFERENTIAL (08/28/2006 12:55 PM CDT) WBC 7.5 4.0 - 10.8 x10E3 INTERFACE SYSTEM RBC 4.57 (L) 4.7 - 6.1 x10E6 INTERFACE SYSTEM HEMOGLOBIN 13.3 (L) 14.0 - 18.0 g/dL INTERFACE SYSTEM HEMATOCRIT 38.5 (L) 42 - 52 % INTERFACE SYSTEM MCV 84.3 80.0 - 94.0 fL INTERFACE SYSTEM MCH 29.1 27 - 33 pg INTERFACE SYSTEM MCHC 34.6 32 - 35 g/dL INTERFACE SYSTEM RDW 14.3 12.7 - 16.5 % INTERFACE SYSTEM PLATELETS 301 130 - 400 x10E3 INTERFACE SYSTEM MPV 6.1 (L) 7.4 - 10.4 fL INTERFACE SYSTEM NEUTROPHILS 57.4 37.0 - 75.0 % INTERFACE SYSTEM MONOCYTES 7.0 0.0 - 12.0 % INTERFACE SYSTEM EOSINOPHILS 2.4 0.0 - 7.0 % INTERFACE SYSTEM BASOPHILS 0.4 0.0 - 2.5 % INTERFACE SYSTEM NEUTROPHIL 4.3 2.0 - 6.9 x10E3 INTERFACE ABSOLUTE SYSTEM MONOCYTE 0.5 0.0 - 0.9 x10E3 INTERFACE ABSOLUTE SYSTEM EOSINOPHIL 0.2 0.0 - 0.7 x10E3 INTERFACE ABSOLUTE SYSTEM BASOPHILS 0.0 0 - 0.2 x10E3 INTERFACE ABSOLUTE SYSTEM EOSINOPHILS 1 % INTERFACE SYSTEM NEUTROPHILS, 62 % INTERFACE SEG SYSTEM LYMPHOCYTES 28 % INTERFACE SYSTEM MONOCYTE 8 % INTERFACE SYSTEM ATYPICAL 1 % INTERFACE LYMPHOCYTE SYSTEM PLATELET EST. Normal INTERFACE SYSTEM WBC ESTIMATE Normal INTERFACE SYSTEM Specimen Performing Organization Address [facility] one Number INTERFACE SYSTEM INTERFACE SYSTEM Refer to clinic/hospital department * TROPONIN (08/28/2006 12:55 PM CDT) TROPONIN I 0.05 0 - 0.4 ng/ml INTERFACE SYSTEM Specimen Narrative Performed At CARDIAC NYLA-0HR NYLA-0 HR from 1021:[id number]. INTERFA CE SYSTEM CARDIAC TROP-0HR TROP-0 HR from 1021:[id number]. Performing Organization Address [facility] one Number INTERFACE SYSTEM INTERFACE SYSTEM Refer to clinic/hospital department * MYOGLOBIN (08/28/2006 12:55 PM CDT) MYOGLOBIN, 44 16 - 97 ng/ml INTERFACE PLASMA SYSTEM Specimen Narrative Performed At CARDIAC NYLA-0HR NYLA-0 HR from 1021:[id number]. INTERFA CE SYSTEM CARDIAC TROP-0HR TROP-0 HR from 1021:[id number]. Performing Organization Address [facility] one Number INTERFACE SYSTEM INTERFACE SYSTEM Refer to clinic/hospital department * BRAIN NATRIURETIC PEPTIDE, BNP OR PROBNP (08/28/2006 12:55 PM CDT) BRAIN 265 (H) 0 - 125 pg/ml INTERFACE NATRIURETIC SYSTEM PEPTIDE Specimen Performing Organization Address [facility] one Number INTERFACE SYSTEM INTERFACE SYSTEM Refer to clinic/hospital department * MAGNESIUM LEVEL (08/28/2006 12:55 PM CDT) MAGNESIUM 2.2 1.8 - 2.4 mg/dl INTERFACE SYSTEM Specimen Performing Organization Address [facility] one Number INTERFACE SYSTEM INTERFACE SYSTEM Refer to clinic/hospital department * COMPREHENSIVE METABOLIC PANEL (08/28/2006 12:55 PM CDT) GLUCOSE 112 (H) 70 - 110 mg/dl INTERFACE SYSTEM BUN 21.0 (H) 7 - 20 mg/dl INTERFACE SYSTEM CREATININE 1.0 0.8 - 1.3 mg/dl INTERFACE SYSTEM BUN/CREAT RATIO 21.0 (H) 10 - 20 INTERFACE SYSTEM GFR 82 >90 ml/min INTERFACE SYSTEM SODIUM 140 135 - 145 mmol/L INTERFACE SYSTEM POTASSIUM 4.6 3.3 - 4.8 mmol/L INTERFACE SYSTEM CHLORIDE 104 98 - 107 mmol/L INTERFACE SYSTEM CO2 23.1 22 - 31 mmol/L INTERFACE SYSTEM ANION GAP 18 4 - 20 INTERFACE SYSTEM CALCIUM 9.3 8.5 - 10.1 mg/dl INTERFACE SYSTEM ALBUMIN 4.3 3.4 - 5.0 g/dl INTERFACE SYSTEM TOTAL PROTEIN 7.0 6.4 - 8.2 g/dl INTERFACE SYSTEM GLOBULIN (CALC) 2.7 INTERFACE SYSTEM ALBUMIN/GLOBULI 1.6 INTERFACE N RATIO SYSTEM BILIRUBIN TOTAL 0.3 <1.1 mg/dl INTERFACE SYSTEM ALKALINE 58 50 - 136 IU/L INTERFACE PHOSPHATASE SYSTEM AST 29 10 - 40 IU/L INTERFACE SYSTEM ALT 37 25 - 70 IU/L INTERFACE SYSTEM Specimen Performing Organization Address City/State/Zipcode Ph one Number INTERFACE SYSTEM INTERFACE SYSTEM Refer to clinic/hospital department documented in this encounter Visit Diagnoses Diagnosis Chest pain, unspecified - Primary documented in this encounter
--- OUTSIDE RECORDS SUMMARY | 2020-03-24 14:51 | XMS REPORT | Encounter Summary ---
Author Author [facility] Organization [facility] Address Unknown Phone Unavailable Care Team Providers Care Network Infrastructure Architect Name Role Phone Shahram Mccallum MD PCP Unavailable Claus Couch MD PCP Encounter Details Care Team Description Date Type Department Shahram Mccallum MD NO ADDRESS ON FILE Cardiac Dysrhythmias NEC (Primary Dx) 09/30/2006 Outpatient [facility] ICU [address] [place] [address] Social History Date Tobacco Use [...] Associated Diag nosis CBC WITHOUT DIFFERENTIAL Routine 10/01/2006 5:40 AM DIETARY SERVICES MANAGER TSH Routine 10/01/2006 5:40 AM DIETARY SERVICES MANAGER PHENYTOIN LEVEL, TOTAL Routine 10/01/2006 5:40 AM DIETARY SERVICES MANAGER LIPID PANEL Routine 10/01/2006 5:40 AM DIETARY SERVICES MANAGER BASIC METABOLIC PANEL Routine 10/01/2006 5:40 AM DIETARY SERVICES MANAGER CARDIAC ENZYMES Routine 09/30/2006 11:35 PM DIETARY SERVICES MANAGER TROPONIN Routine 09/30/2006 11:35 PM DIETARY SERVICES MANAGER TROPONIN Routine 09/30/2006 5:45 PM DIETARY SERVICES MANAGER TROPONIN Routine 09/30/2006 2:58 PM DIETARY SERVICES MANAGER MYOGLOBIN Routine 09/30/2006 2:58 PM DIETARY SERVICES MANAGER CBC WITH MANUAL Routine 09/30/2006 DIFFERENTIAL 11:45 AM DIETARY SERVICES MANAGER TROPONIN Routine 09/30/2006 11:45 AM DIETARY SERVICES MANAGER BRAIN NATRIURETIC Routine 09/30/2006 PEPTIDE, BNP OR PROBNP 11:45 AM DIETARY SERVICES MANAGER MYOGLOBIN Routine 09/30/2006 11:45 AM DIETARY SERVICES MANAGER MAGNESIUM LEVEL Routine 09/30/2006 11:45 AM DIETARY SERVICES MANAGER COMPREHENSIVE METABOLIC Routine 09/30/2006 PANEL 11:45 AM DIETARY SERVICES MANAGER documented in this encounter Results * CBC WITHOUT DIFFERENTIAL (10/01/2006 5:40 AM DIETARY SERVICES MANAGER) Pathologist [facility] WBC 4.8 4.0 - 10.8 x10E3 INTERFACE SYSTEM RBC 4.09 (L) 4.7 - 6.1 x10E6 INTERFACE SYSTEM HEMOGLOBIN 12.1 (L) 14.0 - 18.0 g/dL INTERFACE SYSTEM HEMATOCRIT 34.8 (L) 42 - 52 % INTERFACE SYSTEM MCV 85.1 80.0 - 94.0 fL INTERFACE SYSTEM MCH 29.5 27 - 33 pg INTERFACE SYSTEM MCHC 34.7 32 - 35 g/dL INTERFACE SYSTEM RDW 15.3 12.7 - 16.5 % INTERFACE SYSTEM PLATELETS 240 130 - 400 x10E3 INTERFACE SYSTEM Specimen Performing Organization Address City[facility] one Number INTERFACE SYSTEM INTERFACE SYSTEM Refer to clinic/hospital department * PHENYTOIN LEVEL, TOTAL (10/01/2006 5:40 AM DIETARY SERVICES MANAGER) Pathologist [facility] PHENYTOIN TOTAL 16.5 10 - 20 ug/ml INTERFACE SYSTEM Specimen Narrative Performed At COMMENT: FASTING INTERFACE SYSTEM Performing Organization Address City/[facility] [place] one Number INTERFACE SYSTEM INTERFACE SYSTEM Refer to clinic/hospital department * TSH (10/01/2006 5:40 AM DIETARY SERVICES MANAGER) Pathologist [facility] TSH 1.69 0.34 - 4.82 uIU/ml INTERFACE SYSTEM Specimen Narrative Performed At COMMENT: FASTING INTERFACE SYSTEM Performing Organization Address City/State/Zipcode Ph one Number INTERFACE SYSTEM INTERFACE SYSTEM Refer to clinic/hospital department * LIPID PANEL (10/01/2006 5:40 AM DIETARY SERVICES MANAGER) CHOLESTEROL 250 (H) 140 - 200 mg/dl INTERFACE SYSTEM TRIGLYCERIDE 647 (H) 0 - 199 mg/dl INTERFACE Comment: SYSTEM REFERENCE RANGE - TRIGLYCERIDES NORMAL LESS THAN 150 mg/dl BORDERLINE HIGH 150 - 199 mg/dl HIGH 200 - 499 mg/dl VERY HIGH GREATER THAN OR = 500 mg/dl HDL 29 27 - 67 mg/dl INTERFACE SYSTEM LDL 146 (H) <130 mg/dl INTERFACE CHOLESTEROL, Comment: SYSTEM [...] COMMENT: FASTING INTERFACE SYSTEM Performing Organization Address [facility] one [facility] INTERFACE SYSTEM INTERFACE SYSTEM Refer to clinic/hospital department * BASIC METABOLIC PANEL (10/01/2006 5:40 AM DIETARY SERVICES MANAGER) GLUCOSE 104 70 - 110 mg/dl INTERFACE SYSTEM BUN 17.0 7 - 20 mg/dl INTERFACE SYSTEM CREATININE 1.0 0.8 - 1.3 mg/dl INTERFACE SYSTEM BUN/CREAT RATIO 17.0 10 - 20 INTERFACE SYSTEM GFR 82 >90 ml/min INTERFACE SYSTEM SODIUM 140 135 - 145 mmol/L INTERFACE SYSTEM POTASSIUM 3.8 3.3 - 4.8 mmol/L INTERFACE SYSTEM CHLORIDE 102 98 - 107 mmol/L INTERFACE SYSTEM CO2 30.9 22 - 31 mmol/L INTERFACE SYSTEM ANION GAP 11 4 - 20 INTERFACE SYSTEM CALCIUM 8.7 8.5 - 10.1 mg/dl INTERFACE SYSTEM Specimen Narrative Performed At COMMENT: FASTING INTERFACE SYSTEM Performing Organization Address [facility] INTERFACE SYSTEM INTERFACE SYSTEM Refer to clinic/hospital department * CARDIAC ENZYMES (09/30/2006 11:35 PM DIETARY SERVICES MANAGER) Pathologist [facility] INTERPRETATION See below. INTERFACE Comment: SYSTEM INTERPRETATION - 10/01/06 0826 Normal cardiac marker series, no evidence of acute myocardial infarction. Linda Elise Specimen Narrative Performed At CARDIAC TROP-12HR TROP-12 HR from [id number]. INT [facility] CARDIAC Final: FINAL from [id number]:[id number] . Performing Organization Address [facility] one [facility] INTERFACE SYSTEM INTERFACE SYSTEM Refer to clinic/hospital department * TROPONIN (09/30/2006 11:35 PM DIETARY SERVICES MANAGER) TROPONIN I 0.05 0 - 0.4 ng/ml INTERFACE SYSTEM Specimen Narrative Performed At CARDIAC TROP-12HR TROP-12 HR from [id number]. INT ERFACE SYSTEM CARDIAC Final: FINAL from 1123:[id number] . Performing Organization Address [facility] one Number INTERFACE SYSTEM INTERFACE SYSTEM Refer to clinic/hospital department * TROPONIN (09/30/2006 5:45 PM DIETARY SERVICES MANAGER) TROPONIN I Less than 0.04 0 - 0.4 ng/ml INTERFACE SYSTEM Specimen Narrative Performed At CARDIAC TROP-6HR TROP-6 HR from [id number]. INTER FACE SYSTEM CARDIAC Interim: CAR6 from 1123:[id number] S. Performing Organization Address [facility] one Number INTERFACE SYSTEM INTERFACE SYSTEM Refer to clinic/hospital department * TROPONIN (09/30/2006 2:58 PM DIETARY SERVICES MANAGER) TROPONIN I Less than 0.04 0 - 0.4 ng/ml INTERFACE SYSTEM Specimen Narrative Performed At CARDIAC NYLA-3HR NYLA-3 HR from [id number]. INTERFA CE SYSTEM CARDIAC TROP-3HR TROP-3 HR from 1123:[id number]. CARDIAC Interim: CAR3 from 1123:[id number] S. Performing Organization Address [facility] one Number INTERFACE SYSTEM INTERFACE SYSTEM Refer to clinic/hospital department * MYOGLOBIN (09/30/2006 2:58 PM DIETARY SERVICES MANAGER) MYOGLOBIN, 41 16 - 97 ng/ml INTERFACE PLASMA SYSTEM Specimen Narrative Performed At CARDIAC NYLA-3HR NYLA-3 HR from 1123:[id number]. INTERFA CE SYSTEM CARDIAC TROP-3HR TROP-3 HR from 1123:[id number]. CARDIAC Interim: CAR3 from 1123:[id number]. Performing Organization Address [facility] one Number INTERFACE SYSTEM INTERFACE SYSTEM Refer to clinic/hospital department * CBC WITH MANUAL DIFFERENTIAL (09/30/2006 11:45 AM DIETARY SERVICES MANAGER) WBC 6.0 4.0 - 10.8 x10E3 INTERFACE SYSTEM RBC 4.06 (L) 4.7 - 6.1 x10E6 INTERFACE SYSTEM HEMOGLOBIN 11.8 (L) 14.0 - 18.0 g/dL INTERFACE SYSTEM HEMATOCRIT 34.3 (L) 42 - 52 % INTERFACE SYSTEM MCV 84.6 80.0 - 94.0 fL INTERFACE SYSTEM MCH 29.0 27 - 33 pg INTERFACE SYSTEM MCHC 34.3 32 - 35 g/dL INTERFACE SYSTEM RDW 15.8 12.7 - 16.5 % INTERFACE SYSTEM PLATELETS 286 130 - 400 x10E3 INTERFACE SYSTEM MPV 6.5 (L) 7.4 - 10.4 fL INTERFACE SYSTEM NEUTROPHILS 53.6 37.0 - 75.0 % INTERFACE SYSTEM MONOCYTES 9.6 0.0 - 12.0 % INTERFACE SYSTEM EOSINOPHILS 2.4 0.0 - 7.0 % INTERFACE SYSTEM BASOPHILS 1.0 0.0 - 2.5 % INTERFACE SYSTEM NEUTROPHIL 3.2 2.0 - 6.9 x10E3 INTERFACE ABSOLUTE SYSTEM MONOCYTE 0.6 0.0 - 0.9 x10E3 INTERFACE ABSOLUTE SYSTEM EOSINOPHIL 0.1 0.0 - 0.7 x10E3 INTERFACE ABSOLUTE SYSTEM BASOPHILS 0.1 0 - 0.2 x10E3 INTERFACE ABSOLUTE SYSTEM EOSINOPHILS 3 % INTERFACE SYSTEM BANDS 4 % INTERFACE SYSTEM NEUTROPHILS, 37 % INTERFACE SEG SYSTEM LYMPHOCYTES 46 % INTERFACE SYSTEM MONOCYTE 10 % INTERFACE SYSTEM ANISOCYTOSIS 1+ INTERFACE SYSTEM PLATELET EST. Normal INTERFACE SYSTEM WBC ESTIMATE Normal INTERFACE SYSTEM Specimen Narrative Performed At COMMENT: CHEST PAIN INTERFACE SYSTEM Performing Organization Address [facility] one Number INTERFACE SYSTEM INTERFACE SYSTEM Refer to clinic/hospital department * TROPONIN (09/30/2006 11:45 AM DIETARY SERVICES MANAGER) TROPONIN I Less than 0.04 0 - 0.4 ng/ml INTERFACE SYSTEM Specimen Narrative Performed At CARDIAC NYLA-0HR NYLA-0 HR from [id number]. INTERFA CE SYSTEM CARDIAC TROP-0HR TROP-0 HR from 1123:[id number]. Performing Organization Address [facility] one Number INTERFACE SYSTEM INTERFACE SYSTEM Refer to clinic/hospital department * MYOGLOBIN (09/30/2006 11:45 AM DIETARY SERVICES MANAGER) MYOGLOBIN, 40 16 - 97 ng/ml INTERFACE PLASMA SYSTEM Specimen Narrative Performed At CARDIAC NYLA-0HR NYLA-0 HR from [id number]. INTERFA CE SYSTEM CARDIAC TROP-0HR TROP-0 HR from 1123:[id number]. Performing Organization Address [facility] one Number INTERFACE SYSTEM INTERFACE SYSTEM Refer to clinic/hospital department * BRAIN NATRIURETIC PEPTIDE, BNP OR PROBNP (09/30/2006 11:45 AM DIETARY SERVICES MANAGER) BRAIN 170 (H) 0 - 125 pg/ml INTERFACE NATRIURETIC SYSTEM PEPTIDE Specimen Narrative Performed At COMMENT: CHEST PAIN INTERFACE SYSTEM Performing Organization Address [facility] [place] one Number INTERFACE SYSTEM INTERFACE SYSTEM Refer to clinic/hospital department * MAGNESIUM LEVEL (09/30/2006 11:45 AM DIETARY SERVICES MANAGER) MAGNESIUM 2.0 1.8 - 2.4 mg/dl INTERFACE SYSTEM Specimen Narrative Performed At COMMENT: CHEST PAIN INTERFACE SYSTEM Performing Organization Address [facility] one Number INTERFACE SYSTEM INTERFACE SYSTEM Refer to clinic/hospital department * COMPREHENSIVE METABOLIC PANEL (09/30/2006 11:45 AM DIETARY SERVICES MANAGER) GLUCOSE 113 (H) 70 - 110 mg/dl INTERFACE SYSTEM BUN 18.0 7 - 20 mg/dl INTERFACE SYSTEM CREATININE 0.9 0.8 - 1.3 mg/dl INTERFACE SYSTEM BUN/CREAT RATIO 20.0 10 - 20 INTERFACE SYSTEM GFR 92 >90 ml/min INTERFACE SYSTEM SODIUM 138 135 - 145 mmol/L INTERFACE SYSTEM POTASSIUM 4.4 3.3 - 4.8 mmol/L INTERFACE SYSTEM CHLORIDE 103 98 - 107 mmol/L INTERFACE SYSTEM CO2 27.1 22 - 31 mmol/L INTERFACE SYSTEM ANION GAP 12 4 - 20 INTERFACE SYSTEM CALCIUM 8.6 8.5 - 10.1 mg/dl INTERFACE SYSTEM ALBUMIN 3.9 3.4 - 5.0 g/dl INTERFACE SYSTEM TOTAL PROTEIN 6.9 6.4 - 8.2 g/dl INTERFACE SYSTEM GLOBULIN (CALC) 3.0 INTERFACE SYSTEM ALBUMIN/GLOBULI 1.3 INTERFACE N RATIO SYSTEM BILIRUBIN TOTAL 0.3 <1.1 mg/dl INTERFACE SYSTEM ALKALINE 59 50 - 136 IU/L INTERFACE PHOSPHATASE SYSTEM AST 36 10 - 40 IU/L INTERFACE SYSTEM ALT 45 25 - 70 IU/L INTERFACE SYSTEM Specimen Narrative Performed At COMMENT: CHEST PAIN INTERFACE SYSTEM Performing Organization Address [facility] one Number INTERFACE SYSTEM INTERFACE SYSTEM Refer to clinic/hospital department documented in this encounter Visit Diagnoses Diagnosis Cardiac dysrhythmias NEC - Primary Other specified cardiac dysrhythmias documented in this encounter
--- OUTSIDE RECORDS SUMMARY | 2020-03-24 14:51 | XMS REPORT | Encounter Summary ---
Author Author [facility] Organization [facility] Address Unknown Phone Unavailable Care Team Providers Care Hand Tufter Name Role Phone Shahram Mccallum MD PCP Unavailable Claus Couch MD PCP Encounter Details Care Team Description Date Type Department Shahram Mccallum MD NO ADDRESS ON FILE Cor Athrscl-Uns Vessel (Primary Dx) 07/15/2006 Outpatient [facility] [address] [facility] [...] Procedure Name Priority Date/Time Associated Diag nosis AST Routine 07/15/2006 8:00 AM CDT HEMOGLOBIN A1C Routine 07/15/2006 8:00 AM CDT LIPID PANEL Routine 07/15/2006 8:00 AM CDT BASIC METABOLIC PANEL Routine 07/15/2006 8:00 AM CDT documented in this encounter Results * HEMOGLOBIN A1C (07/15/2006 8:00 AM CDT) HEMOGLOBIN A1C 6.6 (H) 0 - 6.0 % INTERFACE SYSTEM GLUCOSE, MEAN 143 mg/dl INTERFACE BLOOD SYSTEM Specimen Narrative Performed At 14 HR FAST INTERFACE SYSTEM Performing Organization Address City/State/Zipcode Ph one Number INTERFACE SYSTEM INTERFACE SYSTEM Refer to clinic/hospital department * AST (07/15/2006 8:00 AM CDT) AST 25 10 - 40 IU/L INTERFACE SYSTEM Specimen Narrative Performed At 14 HR FAST INTERFACE SYSTEM Performing Organization Address City/State/[facility] Ph one Number INTERFACE SYSTEM INTERFACE SYSTEM Refer to clinic/hospital department * LIPID PANEL (07/15/2006 8:00 AM CDT) CHOLESTEROL 296 (H) 140 - 200 mg/dl INTERFACE SYSTEM TRIGLYCERIDE 676 (H) 0 - 199 mg/dl INTERFACE Comment: SYSTEM REFERENCE RANGE - TRIGLYCERIDES NORMAL LESS THAN 150 mg/dl BORDERLINE HIGH 150 - 199 mg/dl HIGH 200 - 499 mg/dl VERY HIGH GREATER THAN OR = 500 mg/dl HDL 34 27 - 67 mg/dl INTERFACE SYSTEM LDL 159 (H) <130 mg/dl INTERFACE CHOLESTEROL, Comment: SYSTEM [...] 0-1 risk factor Specimen Narrative Performed At 14 HR FAST INTERFACE SYSTEM Performing Organization Address [facility] one Number INTERFACE SYSTEM INTERFACE SYSTEM Refer to clinic/hospital department * BASIC METABOLIC PANEL (07/15/2006 8:00 AM CDT) GLUCOSE 142 (H) 70 - 110 mg/dl INTERFACE SYSTEM BUN 19.0 7 - 20 mg/dl INTERFACE SYSTEM CREATININE 0.9 0.8 - 1.3 mg/dl INTERFACE SYSTEM BUN/CREAT RATIO 21.1 (H) 10 - 20 INTERFACE SYSTEM GFR 93 >90 ml/min INTERFACE SYSTEM SODIUM 141 135 - 145 mmol/L INTERFACE SYSTEM POTASSIUM 3.9 3.3 - 4.8 mmol/L INTERFACE SYSTEM CHLORIDE 105 98 - 107 mmol/L INTERFACE SYSTEM CO2 24.9 22 - 31 mmol/L INTERFACE SYSTEM ANION GAP 15 4 - 20 INTERFACE SYSTEM CALCIUM 8.9 8.5 - 10.1 mg/dl INTERFACE SYSTEM Specimen Narrative Performed At 14 HR FAST INTERFACE SYSTEM Performing Organization Address [facility] one Number INTERFACE SYSTEM INTERFACE SYSTEM Refer to clinic/hospital department documented in this encounter Visit Diagnoses Diagnosis Coronary atherosclerosis of unspecified type of vessel, [place] or graft - Primary documented in this encounter
--- OUTSIDE RECORDS SUMMARY | 2020-03-24 14:51 | XMS REPORT | Encounter Summary ---
Author Author [facility] Organization [facility] Address Unknown Phone Unavailable Care Team Providers Care Customer Support Engineer Name Role Phone Shahram Mccallum MD PCP Unavailable Claus Couch MD PCP Encounter Details Care Team Description Date Type Department Shahram Mccallum MD NO ADDRESS ON FILE DM Manif NEC Type II (Primary Dx) 05/18/2006 Outpatient [facility] Historical Social [...]
--- OUTSIDE RECORDS SUMMARY | 2020-03-24 14:51 | XMS REPORT | Encounter Summary ---
Author Author [facility] Organization [facility] Address Unknown Phone Unavailable Care Team Providers Care Leak Hunter Name Role Phone Shahram Mccallum MD PCP Unavailable Claus Couch MD PCP Encounter Details Care Team Description Date Type Department Walter Oconnor MD [address] [facility] [address] [place] [address] No Proc for Reasons NEC (Primary Dx) 09/20/2006 Outpatient [facility] Historical [place] Social History Date [...]
--- OUTSIDE RECORDS SUMMARY | 2020-03-24 14:51 | XMS REPORT | Encounter Summary ---
Author Author [facility] Organization [facility] Address Unknown Phone Unavailable Care Team Providers Care Photoengraver Apprentice Name Role Phone Shahram Mccallum MD PCP Unavailable Claus Couch MD PCP Encounter Details Care Team Description Date Type Department Shahram Mccallum MD NO ADDRESS ON FILE Unspecified Chest Pain (Primary Dx) 05/14/2006 Outpatient [facility] Consol idated Historical [facility] [address] [place] [address] Social History Date Tobacco Use Types Packs/Day [...]
--- OUTSIDE RECORDS SUMMARY | 2020-03-24 14:51 | XMS REPORT | Encounter Summary ---
Author Author [facility] Organization [facility] Address Unknown Phone Unavailable Care Team Providers Care Ux Researcher Name Role Phone Shahram Mccallum MD PCP Unavailable Claus Couch MD PCP Encounter Details Care Team Description Date Type Department Junior Beal MD [address] [place] [phone] Cor Athrscl-Uns Vessel (Primary Dx) 09/02/2006 Outpatient [facility] Historical [address] [phone] Social History Date Tobacco Use Types Packs/Day [...] of vessel, [place] or graft - Primary documented in this encounter
--- OUTSIDE RECORDS SUMMARY | 2020-03-24 14:51 | XMS REPORT | Encounter Summary ---
Author Author [facility] Organization [facility] Address Unknown Phone Unavailable Care Team Providers Care Leather Splitter Name Role Phone Shahram Mccallum MD PCP Unavailable Claus Couch MD PCP Encounter Details Care Team Description Date Type Department Shahram Mccallum MD NO ADDRESS ON FILE Cardiac Dysrhythmias NEC (Primary Dx) 10/02/2006 Outpatient [facility] Historical Social History Date Tobacco [...] as of this encounter Visit Diagnoses Diagnosis Cardiac dysrhythmias NEC - Primary Other specified cardiac dysrhythmias documented in this encounter
--- OUTSIDE RECORDS SUMMARY | 2020-03-24 14:51 | XMS REPORT | Encounter Summary ---
Author Author [facility] Organization [facility] Address Unknown Phone Unavailable Care Team Providers Care Quartz Cutter Name Role Phone Shahram Mccallum MD PCP Unavailable Claus Couch MD PCP Encounter Details Care Team Description Date Type Department Junior Beal MD [address] [place] [address] Cor Athrscl-Uns Vessel (Primary Dx) 08/31/2006 Outpatient [facility] Consol idated Historical [facility] [address] [place] [address] Social History Date Tobacco Use Types Packs/Day [...] Coronary atherosclerosis of unspecified type of vessel, [place] or graft - Primary documented in this encounter
--- OUTSIDE RECORDS SUMMARY | 2020-03-24 14:51 | XMS REPORT | Encounter Summary ---
Author Author [facility] Organization [facility] Address Unknown Phone Unavailable Care Team Providers Care Multi Share Program Coordinator Name Role Phone Shahram Mccallum MD PCP Unavailable Claus Couch MD PCP Encounter Details Care Team Description Date Type Department Shahram Mccallum MD NO ADDRESS ON FILE DM Manif NEC Type II (Primary Dx) 07/27/2006 Outpatient [facility] Historical Social [...]
--- OUTSIDE RECORDS SUMMARY | 2020-03-24 14:51 | XMS REPORT | Encounter Summary ---
Author Author [facility] Organization [facility] Address Unknown Phone Unavailable Care Team Providers Care Charge Nurse Name Role Phone Shahram Mccallum MD PCP Unavailable Claus Couch MD PCP Encounter Details Care Team Description Date Type Department Shahram Mccallum MD NO ADDRESS ON FILE Unspecified Hypertrophic and Atrophic Co ndition of Skin (Primary Dx) 08/06/2006 Outpatient [facility] Consol idated Historical [address] [phone] Social History Date Tobacco Use Types Packs/Day Years Used Never Assessed Sex Assigned at Date Recorded Not on file Industry Job Start Date Occupation Not on file Not on file Not on file Travel End Travel History Travel Start No recent travel history available. documented as of this encounter Plan of Treatment Not on filedocumented as of this encounter Visit Diagnoses Diagnosis Unspecified hypertrophic and atrophic c ondition of skin - Primary documented in this encounter
--- OUTSIDE RECORDS SUMMARY | 2020-03-24 14:51 | XMS REPORT | Encounter Summary ---
Author Author [facility] Organization [facility] Address Unknown Phone Unavailable Care Team Providers Care Nonprofit Director Name Role Phone Shahram Mccallum MD PCP Unavailable Claus Couch MD PCP Encounter Details Care Team Description Date Type Department Shahram Mccallum MD NO ADDRESS ON FILE Hyperlipidemia NEC/NOS (Primary Dx) 10/22/2006 Outpatient [facility] [address] [facility] [...] Date/Time Associated Diag nosis MAGNESIUM LEVEL Routine 10/22/2006 7:30 AM REGIONAL BUSINESS MANAGER HEMOGLOBIN A1C Routine 10/22/2006 7:30 AM REGIONAL BUSINESS MANAGER LIPID PANEL Routine 10/22/2006 7:30 AM REGIONAL BUSINESS MANAGER COMPREHENSIVE METABOLIC Routine 10/22/2006 PANEL 7:30 AM REGIONAL BUSINESS MANAGER documented in this encounter Results * HEMOGLOBIN A1C (10/22/2006 7:30 AM REGIONAL BUSINESS MANAGER) HEMOGLOBIN A1C 6.0 0 - 6.0 % INTERFACE SYSTEM GLUCOSE, MEAN 124 mg/dl INTERFACE BLOOD SYSTEM Specimen Narrative Performed At FASTING INTERFACE SYSTEM Performing Organization Address City/State/Zipcode Ph one Number INTERFACE SYSTEM INTERFACE SYSTEM Refer to clinic/hospital department * MAGNESIUM LEVEL (10/22/2006 7:30 AM REGIONAL BUSINESS MANAGER) MAGNESIUM 1.8 1.8 - 2.4 mg/dl INTERFACE SYSTEM Specimen Narrative Performed At FASTING INTERFACE SYSTEM Performing Organization Address City/State/Zipcode Ph one Number INTERFACE SYSTEM INTERFACE SYSTEM Refer to clinic/hospital department * LIPID PANEL (10/22/2006 7:30 AM REGIONAL BUSINESS MANAGER) CHOLESTEROL 278 (H) 140 - 200 mg/dl INTERFACE SYSTEM TRIGLYCERIDE 498 (H) 0 - 199 mg/dl INTERFACE Comment: SYSTEM REFERENCE RANGE - TRIGLYCERIDES NORMAL LESS THAN 150 mg/dl BORDERLINE HIGH 150 - 199 mg/dl HIGH 200 - 499 mg/dl VERY HIGH GREATER THAN OR = 500 mg/dl HDL 37 ([place]) 27 - 67 mg/dl INTERFACE SYSTEM LDL 162 (H) <130 mg/dl INTERFACE CHOLESTEROL, Comment: SYSTEM [...] At FASTING INTERFACE SYSTEM Performing Organization Address City/[facility] Ph one Number INTERFACE SYSTEM INTERFACE SYSTEM Refer to clinic/hospital department * COMPREHENSIVE METABOLIC PANEL (10/22/2006 7:30 AM REGIONAL BUSINESS MANAGER) GLUCOSE 104 70 - 110 mg/dl INTERFACE SYSTEM BUN 19.0 7 - 20 mg/dl INTERFACE SYSTEM CREATININE 0.8 0.8 - 1.3 mg/dl INTERFACE SYSTEM BUN/CREAT RATIO 23.8 (H) 10 - 20 INTERFACE SYSTEM GFR 106 >90 ml/min INTERFACE SYSTEM SODIUM 141 135 - 145 mmol/L INTERFACE SYSTEM POTASSIUM 4.0 3.3 - 4.8 mmol/L INTERFACE SYSTEM CHLORIDE 104 98 - 107 mmol/L INTERFACE SYSTEM CO2 27.4 22 - 31 mmol/L INTERFACE SYSTEM ANION GAP 14 4 - 20 INTERFACE SYSTEM CALCIUM 8.8 8.5 - 10.1 mg/dl INTERFACE SYSTEM ALBUMIN 4.1 3.4 - 5.0 g/dl INTERFACE SYSTEM TOTAL PROTEIN 6.9 6.4 - 8.2 g/dl INTERFACE SYSTEM GLOBULIN (CALC) 2.8 INTERFACE SYSTEM ALBUMIN/GLOBULI 1.5 INTERFACE N RATIO SYSTEM BILIRUBIN TOTAL 0.2 <1.1 mg/dl INTERFACE SYSTEM ALKALINE 60 50 - 136 IU/L INTERFACE PHOSPHATASE SYSTEM AST 27 10 - 40 IU/L INTERFACE SYSTEM ALT 34 25 - 70 IU/L INTERFACE SYSTEM Specimen Narrative Performed At FASTING INTERFACE SYSTEM Performing Organization Address [facility] one Number INTERFACE SYSTEM INTERFACE SYSTEM Refer to clinic/hospital department documented in this encounter Visit Diagnoses Diagnosis Hyperlipidemia NEC/NOS - Primary Other and unspecified hyperlipidemia documented in this encounter
--- OUTSIDE RECORDS SUMMARY | 2020-03-24 14:51 | XMS REPORT | Encounter Summary ---
Author Author [facility] Organization [facility] Address Unknown Phone Unavailable Care Team Providers Care Textile Finisher Name Role Phone Shahram Mccallum MD PCP Unavailable Claus Couch MD PCP Encounter Details Care Team Description Date Type Department Jaime III, Oliverio Magdaleno MD [address] [place] [address] Hematuria (Primary Dx) 06/14/2006 Outpatient [facility] Historical [address] [phone] Social History Date Tobacco Use Types Packs/Day [...] Procedure Name Priority Date/Time Associated Diag nosis BLEEDING TIME/PLATELET Routine 06/14/2006 FUNCTION 12:24 PM CDT documented in this encounter Results * BLEEDING TIME/PLATELET FUNCTION (06/14/2006 12:24 PM CDT) BLEEDING TIME 30.0 (H)Comment: TEST STOPPED 1.5 - 7.0 Min INTERFACE AT THIRTY MIN. PATIENT STILL SYSTEM BLEEDING Specimen Performing Organization Address City/State/Zipcode Ph one Number INTERFACE SYSTEM INTERFACE SYSTEM Refer to clinic/hospital department documented in this encounter Visit Diagnoses Diagnosis Hematuria - Primary documented in this encounter
--- OUTSIDE RECORDS SUMMARY | 2020-03-24 14:52 | XMS REPORT | Encounter Summary ---
Author Author [facility] Organization [facility] Address Unknown Phone Unavailable Care Team Providers Care Principal Systems Engineer Name Role Phone Shahram Mccallum MD PCP Unavailable Claus Couch MD PCP Encounter Details Care Team Description Date Type Department Shahram Mccallum MD NO ADDRESS ON FILE Unspecified Chest Pain (Primary Dx) 03/01/2006 Emergency [facility] Emergency Department [address] [phone] Social History Date Tobacco Use [...] Date/Time Associated Diag nosis CARDIAC ENZYMES Routine 03/02/2006 2:38 AM CDT CBC WITH MANUAL Routine 03/01/2006 DIFFERENTIAL 2:56 PM CDT TROPONIN Routine 03/01/2006 2:56 PM CDT MYOGLOBIN Routine 03/01/2006 2:56 PM CDT MAGNESIUM LEVEL Routine 03/01/2006 2:56 PM CDT COMPREHENSIVE METABOLIC Routine 03/01/2006 PANEL 2:56 PM CDT documented in this encounter Results * CARDIAC ENZYMES (03/02/2006 2:38 AM CDT) INTERPRETATION See below. INTERFACE Comment: SYSTEM INTERPRETATION - 03/02/06 0830 Single set of cardiac markers is not indicative of acute [place]. Linda Cerrato. Specimen Narrative Performed At CARDIAC TROP-12HR TROP-12 HR from [id number]. INT ERFACE SYSTEM CARDIAC Final: FINAL from [id number] . Performing Organization Address [facility] one Number INTERFACE SYSTEM INTERFACE SYSTEM Refer to clinic/hospital department * CBC WITH MANUAL DIFFERENTIAL (03/01/2006 2:56 PM CDT) [facility] WBC 6.5 4.0 - 10.8 x10E3 INTERFACE SYSTEM RBC 4.35 (L) 4.7 - 6.1 x10E6 INTERFACE SYSTEM HEMOGLOBIN 12.5 (L) 14.0 - 18.0 g/dL INTERFACE SYSTEM HEMATOCRIT 36.4 (L) 42 - 52 % INTERFACE SYSTEM MCV 83.6 80.0 - 94.0 fL INTERFACE SYSTEM MCH 28.8 27 - 33 pg INTERFACE SYSTEM MCHC 34.4 32 - 35 g/dL INTERFACE SYSTEM RDW 14.5 12.7 - 16.5 % INTERFACE SYSTEM PLATELETS 258 130 - 400 x10E3 INTERFACE SYSTEM MPV 6.1 (L) 7.4 - 10.4 fL INTERFACE SYSTEM NEUTROPHILS 57.1 37.0 - 75.0 % INTERFACE SYSTEM MONOCYTES 5.6 0.0 - 12.0 % INTERFACE SYSTEM EOSINOPHILS 2.1 0.0 - 7.0 % INTERFACE SYSTEM BASOPHILS 0.4 0.0 - 2.5 % INTERFACE SYSTEM NEUTROPHIL 3.7 2.0 - 6.9 x10E3 INTERFACE ABSOLUTE SYSTEM MONOCYTE 0.4 0.0 - 0.9 x10E3 INTERFACE ABSOLUTE SYSTEM EOSINOPHIL 0.1 0.0 - 0.7 x10E3 INTERFACE ABSOLUTE SYSTEM BASOPHILS 0.0 0 - 0.2 x10E3 INTERFACE ABSOLUTE SYSTEM EOSINOPHILS 1 % INTERFACE SYSTEM BANDS 11 % INTERFACE SYSTEM NEUTROPHILS, 39 % INTERFACE SEG SYSTEM LYMPHOCYTES 48 % INTERFACE SYSTEM MONOCYTE 1 % INTERFACE SYSTEM PLATELET EST. Normal INTERFACE SYSTEM WBC ESTIMATE Normal INTERFACE SYSTEM Specimen Narrative Performed At COMMENT: CHEST PAIN INTERFACE SYSTEM Performing Organization Address [facility] one Number INTERFACE SYSTEM INTERFACE SYSTEM Refer to clinic/hospital department * TROPONIN (03/01/2006 2:56 PM CDT) [facility] TROPONIN I 0.05 0 - 0.4 ng/ml INTERFACE SYSTEM Specimen Narrative Performed At CARDIAC NYLA-0HR NYLA-0 HR from [id number]. INTERFA CE SYSTEM CARDIAC TROP-0HR TROP-0 HR from [id number]. Performing Organization Address [facility] Ph one Number INTERFACE SYSTEM INTERFACE SYSTEM Refer to clinic/hospital department * MYOGLOBIN (03/01/2006 2:56 PM CDT) MYOGLOBIN, 46 16 - 97 ng/ml INTERFACE PLASMA SYSTEM Specimen Narrative Performed At CARDIAC NYLA-0HR NYLA-0 HR from [id number]. INTERFA CE SYSTEM CARDIAC TROP-0HR TROP-0 HR from [id number]. Performing Organization Address [facility] one Number INTERFACE SYSTEM INTERFACE SYSTEM Refer to clinic/hospital department * MAGNESIUM LEVEL (03/01/2006 2:56 PM CDT) MAGNESIUM 1.9 1.8 - 2.4 mg/dl INTERFACE SYSTEM Specimen Narrative Performed At COMMENT: CHEST PAIN INTERFACE SYSTEM Performing Organization Address [facility] one Number INTERFACE SYSTEM INTERFACE SYSTEM Refer to clinic/hospital department * COMPREHENSIVE METABOLIC PANEL (03/01/2006 2:56 PM CDT) GLUCOSE 127 (H) 70 - 110 mg/dl INTERFACE SYSTEM BUN 20.0 7 - 20 mg/dl INTERFACE SYSTEM CREATININE 1.0 0.8 - 1.3 mg/dl INTERFACE SYSTEM BUN/CREAT RATIO 20.0 10 - 20 INTERFACE SYSTEM SODIUM 136 135 - 145 mmol/L INTERFACE SYSTEM POTASSIUM 4.3 3.5 - 5.1 mmol/L INTERFACE SYSTEM CHLORIDE 100 98 - 107 mmol/L INTERFACE SYSTEM CO2 25.7 22 - 31 mmol/L INTERFACE SYSTEM ANION [...] - 136 IU/L INTERFACE PHOSPHATASE SYSTEM AST 25 10 - 40 IU/L INTERFACE SYSTEM ALT 37 25 - 70 IU/L INTERFACE SYSTEM Specimen Narrative Performed At COMMENT: CHEST PAIN INTERFACE SYSTEM Performing Organization Address City/State/Zipcode Ph one Number INTERFACE SYSTEM INTERFACE SYSTEM Refer to clinic/hospital department documented in this encounter Visit Diagnoses Diagnosis Chest pain, unspecified - Primary documented in this encounter
--- OUTSIDE RECORDS SUMMARY | 2020-03-24 14:52 | XMS REPORT | Encounter Summary ---
Author Author [facility] Organization [facility] Address Unknown Phone Unavailable Care Team Providers Care News Broadcaster Name Role Phone Shahram Mccallum MD PCP Unavailable Claus Couch MD PCP Encounter Details Care Team Description Date Type Department Shahram Mccallum MD NO ADDRESS ON FILE Atrial Fibrillation (Primary Dx) 04/25/2006 Inpatient [facility] [address] [place] [address] Social History Date Tobacco Use [...] Associated Diag nosis CBC WITHOUT DIFFERENTIAL Routine 04/26/2006 5:45 AM CDT LIPID PANEL Routine 04/26/2006 5:45 AM CDT BASIC METABOLIC PANEL Routine 04/26/2006 5:45 AM CDT CARDIAC ENZYMES Routine 04/25/2006 11:45 PM CDT TROPONIN Routine 04/25/2006 11:45 PM CDT TROPONIN Routine 04/25/2006 6:00 PM CDT TROPONIN Routine 04/25/2006 3:01 PM CDT MYOGLOBIN Routine 04/25/2006 3:01 PM CDT CBC WITH MANUAL Routine 04/25/2006 DIFFERENTIAL 11:55 AM CDT TROPONIN Routine 04/25/2006 11:55 AM CDT BRAIN NATRIURETIC Routine 04/25/2006 PEPTIDE, BNP OR PROBNP 11:55 AM CDT MYOGLOBIN Routine 04/25/2006 11:55 AM CDT MAGNESIUM LEVEL Routine 04/25/2006 11:55 AM CDT PHENYTOIN LEVEL, TOTAL Routine 04/25/2006 11:55 AM CDT COMPREHENSIVE METABOLIC Routine 04/25/2006 PANEL 11:55 AM CDT PTT Routine 04/25/2006 PROTIME-INR Routine 04/25/2006 documented in this encounter Results * CBC WITHOUT DIFFERENTIAL (04/26/2006 5:45 AM CDT) WBC 5.9 4.0 - 10.8 x10E3 INTERFACE SYSTEM RBC 4.30 (L) 4.7 - 6.1 x10E6 INTERFACE SYSTEM HEMOGLOBIN 12.6 (L) 14.0 - 18.0 g/dL INTERFACE SYSTEM HEMATOCRIT 36.6 (L) 42 - 52 % INTERFACE SYSTEM MCV 85.1 80.0 - 94.0 fL INTERFACE SYSTEM MCH 29.3 27 - 33 pg INTERFACE SYSTEM MCHC 34.5 32 - 35 g/dL INTERFACE SYSTEM RDW 14.6 12.7 - 16.5 % INTERFACE SYSTEM PLATELETS 252 130 - 400 x10E3 INTERFACE SYSTEM Specimen Narrative Performed At COMMENT: FASTING INTERFACE SYSTEM Performing Organization Address City/State/Zipcode Ph one Number INTERFACE SYSTEM INTERFACE SYSTEM Refer to clinic/hospital department * LIPID PANEL (04/26/2006 5:45 AM CDT) CHOLESTEROL 389 (H) 140 - 200 mg/dl INTERFACE SYSTEM TRIGLYCERIDE 1,496 (H) 0 - 199 mg/dl INTERFACE Comment: SYSTEM REFERENCE RANGE - TRIGLYCERIDES NORMAL LESS THAN 150 mg/dl BORDERLINE HIGH 150 - 199 mg/dl HIGH 200 - 499 mg/dl VERY HIGH GREATER THAN OR = 500 mg/dl HDL 21 (L) 27 - 67 mg/dl INTERFACE SYSTEM LDL [...] COMMENT: FASTING INTERFACE SYSTEM Performing Organization Address [facility] one Number INTERFACE SYSTEM INTERFACE SYSTEM Refer to clinic/hospital department * BASIC METABOLIC PANEL (04/26/2006 5:45 AM CDT) GLUCOSE 143 (H) 70 - 110 mg/dl INTERFACE SYSTEM BUN 22.0 (H) 7 - 20 mg/dl INTERFACE SYSTEM CREATININE 1.0 0.8 - 1.3 mg/dl INTERFACE SYSTEM BUN/CREAT RATIO 22.0 (H) 10 - 20 INTERFACE SYSTEM GFR 82 >90 ml/min INTERFACE SYSTEM SODIUM 136 135 - 145 mmol/L INTERFACE SYSTEM POTASSIUM 4.2 3.3 - 4.8 mmol/L INTERFACE SYSTEM CHLORIDE 103 98 - 107 mmol/L INTERFACE SYSTEM CO2 26.5 22 - 31 mmol/L INTERFACE SYSTEM ANION GAP 11 4 - 20 INTERFACE SYSTEM CALCIUM 8.5 8.5 - 10.1 mg/dl INTERFACE SYSTEM Specimen Narrative Performed At COMMENT: FASTING INTERFACE SYSTEM Performing Organization Address [facility] one [facility] INTERFACE SYSTEM INTERFACE SYSTEM Refer to clinic/hospital department * CARDIAC ENZYMES (04/25/2006 11:45 PM CDT) INTERPRETATION See below. INTERFACE Comment: SYSTEM INTERPRETATION - 04/26/06 1013 Normal cardiac marker series, no evidence of acute myocardial infarction. Linda Elise. Specimen Narrative Performed At CARDIAC TROP-12HR TROP-12 HR from [id number]. INT [employer] SYSTEM CARDIAC Final: FINAL from [id number] . Performing Organization Address [facility] one Number INTERFACE SYSTEM INTERFACE SYSTEM Refer to clinic/hospital department * TROPONIN (04/25/2006 11:45 PM CDT) TROPONIN I 0.05 0 - 0.4 ng/ml INTERFACE SYSTEM Specimen Narrative Performed At CARDIAC TROP-12HR TROP-12 HR from [id number]. [employer] SYSTEM CARDIAC Final: FINAL from [id number] . Performing Organization Address [facility] one Number INTERFACE SYSTEM INTERFACE SYSTEM Refer to clinic/hospital department * TROPONIN (04/25/2006 6:00 PM CDT) TROPONIN I 0.05 0 - 0.4 ng/ml INTERFACE SYSTEM Specimen Narrative Performed At CARDIAC TROP-6HR TROP-6 HR from [id number]. INTER FACE SYSTEM CARDIAC Interim: CAR6 from [id number] S. Performing Organization Address [facility] Ph one Number INTERFACE SYSTEM INTERFACE SYSTEM Refer to clinic/hospital department * TROPONIN (04/25/2006 3:01 PM CDT) TROPONIN I 0.04 0 - 0.4 ng/ml INTERFACE SYSTEM Specimen Narrative Performed At CARDIAC NYLA-3HR NYLA-3 HR from [id number]. INTERFA CE SYSTEM CARDIAC TROP-3HR TROP-3 HR from [id number]. CARDIAC Interim: CAR3 from [id number] S. Performing Organization Address [facility] Ph one Number INTERFACE SYSTEM INTERFACE SYSTEM Refer to clinic/hospital department * MYOGLOBIN (04/25/2006 3:01 PM CDT) MYOGLOBIN, 29 16 - 97 ng/ml INTERFACE PLASMA SYSTEM Specimen Narrative Performed At CARDIAC NYLA-3HR NYLA-3 HR from [id number]. INTERFA CE SYSTEM CARDIAC TROP-3HR TROP-3 HR from [id number]. CARDIAC Interim: CAR3 from [id number] S. Performing Organization Address [facility] Ph one Number INTERFACE SYSTEM INTERFACE SYSTEM Refer to clinic/hospital department * CBC WITH MANUAL DIFFERENTIAL (04/25/2006 11:55 AM CDT) WBC 7.9 4.0 - 10.8 x10E3 INTERFACE SYSTEM RBC 4.42 (L) 4.7 - 6.1 x10E6 INTERFACE SYSTEM HEMOGLOBIN 12.9 (L) 14.0 - 18.0 g/dL INTERFACE SYSTEM HEMATOCRIT 37.5 (L) 42 - 52 % INTERFACE SYSTEM MCV 84.7 80.0 - 94.0 fL INTERFACE SYSTEM MCH 29.3 27 - 33 pg INTERFACE SYSTEM MCHC 34.6 32 - 35 g/dL INTERFACE SYSTEM RDW 14.5 12.7 - 16.5 % INTERFACE SYSTEM PLATELETS 275 130 - 400 x10E3 INTERFACE SYSTEM MPV 6.4 (L) 7.4 - 10.4 fL INTERFACE SYSTEM NEUTROPHILS 60.7 37.0 - 75.0 % INTERFACE SYSTEM MONOCYTES 6.9 0.0 - 12.0 % INTERFACE SYSTEM EOSINOPHILS 2.0 0.0 - 7.0 % INTERFACE SYSTEM BASOPHILS 0.9 0.0 - 2.5 % INTERFACE SYSTEM NEUTROPHIL 4.8 2.0 - 6.9 x10E3 INTERFACE ABSOLUTE SYSTEM MONOCYTE 0.5 0.0 - 0.9 x10E3 INTERFACE ABSOLUTE SYSTEM EOSINOPHIL 0.2 0.0 - 0.7 x10E3 INTERFACE ABSOLUTE SYSTEM BASOPHILS 0.1 0 - 0.2 x10E3 INTERFACE ABSOLUTE SYSTEM BASOPHILS 1 % INTERFACE SYSTEM EOSINOPHILS 2 % INTERFACE SYSTEM METAMYELOCYTE 1 % INTERFACE SYSTEM BANDS 1 % INTERFACE SYSTEM NEUTROPHILS, 58 % INTERFACE SEG SYSTEM LYMPHOCYTES 33 % INTERFACE SYSTEM MONOCYTE 4 % INTERFACE SYSTEM PLATELET EST. Normal INTERFACE SYSTEM WBC ESTIMATE Normal INTERFACE SYSTEM Specimen Narrative Performed At COMMENT: CHEST PAIN INTERFACE SYSTEM Performing Organization Address [facility] one Number INTERFACE SYSTEM INTERFACE SYSTEM Refer to clinic/hospital department * TROPONIN (04/25/2006 11:55 AM CDT) TROPONIN I 0.05 0 - 0.4 ng/ml INTERFACE SYSTEM Specimen Narrative Performed At CARDIAC NYLA-0HR NYLA-0 HR from [id number]. INTERFA CE SYSTEM CARDIAC TROP-0HR TROP-0 HR from [id number]. Performing Organization Address [facility] one Number INTERFACE SYSTEM INTERFACE SYSTEM Refer to clinic/hospital department * MYOGLOBIN (04/25/2006 11:55 AM CDT) MYOGLOBIN, 36 16 - 97 ng/ml INTERFACE PLASMA SYSTEM Specimen Narrative Performed At CARDIAC NYLA-0HR NYLA-0 HR from [id number]. INTERFA CE SYSTEM CARDIAC TROP-0HR TROP-0 HR from [id number]. Performing Organization Address [facility] one Number INTERFACE SYSTEM INTERFACE SYSTEM Refer to clinic/hospital department * BRAIN NATRIURETIC PEPTIDE, BNP OR PROBNP (04/25/2006 11:55 AM CDT) BRAIN 177 (H) 0 - 125 pg/ml INTERFACE NATRIURETIC SYSTEM PEPTIDE Specimen Narrative Performed At COMMENT: CHEST PAIN INTERFACE SYSTEM Performing Organization Address [facility] one Number INTERFACE SYSTEM INTERFACE SYSTEM Refer to clinic/hospital department * PHENYTOIN LEVEL, TOTAL (04/25/2006 11:55 AM CDT) PHENYTOIN TOTAL 19.5 10 - 20 ug/ml INTERFACE SYSTEM Specimen Narrative Performed At COMMENT: CHEST PAIN INTERFACE SYSTEM Performing Organization Address [facility] one Number INTERFACE SYSTEM INTERFACE SYSTEM Refer to clinic/hospital department * MAGNESIUM LEVEL (04/25/2006 11:55 AM CDT) MAGNESIUM 1.8 1.8 - 2.4 mg/dl INTERFACE SYSTEM Specimen Narrative Performed At COMMENT: CHEST PAIN INTERFACE SYSTEM Performing Organization Address [facility] one Number INTERFACE SYSTEM INTERFACE SYSTEM Refer to clinic/hospital department * COMPREHENSIVE METABOLIC PANEL (04/25/2006 11:55 AM CDT) GLUCOSE 163 (H) 70 - 110 mg/dl INTERFACE SYSTEM BUN 23.0 (H) 7 - 20 mg/dl INTERFACE SYSTEM CREATININE 0.9 0.8 - 1.3 mg/dl INTERFACE SYSTEM BUN/CREAT RATIO 25.6 (H) 10 - 20 INTERFACE SYSTEM GFR 93 >90 ml/min INTERFACE SYSTEM SODIUM 135 135 - 145 mmol/L INTERFACE SYSTEM POTASSIUM 4.3 3.3 - 4.8 mmol/L INTERFACE SYSTEM CHLORIDE 100 98 - 107 mmol/L INTERFACE SYSTEM CO2 25.0 22 - 31 mmol/L INTERFACE SYSTEM ANION GAP 14 4 - 20 INTERFACE SYSTEM CALCIUM 9.0 8.5 - 10.1 mg/dl INTERFACE SYSTEM ALBUMIN 4.1 3.4 - 5.0 g/dl INTERFACE SYSTEM TOTAL PROTEIN 6.8 6.4 - 8.2 g/dl INTERFACE SYSTEM GLOBULIN (CALC) 2.7 INTERFACE SYSTEM ALBUMIN/GLOBULI 1.5 INTERFACE N RATIO SYSTEM BILIRUBIN TOTAL 0.3 <1.1 mg/dl INTERFACE SYSTEM ALKALINE 64 50 - 136 IU/L INTERFACE PHOSPHATASE SYSTEM AST 27 10 - 40 IU/L INTERFACE SYSTEM ALT 39 25 - 70 IU/L INTERFACE SYSTEM Specimen Narrative Performed At COMMENT: CHEST PAIN INTERFACE SYSTEM Performing Organization Address [facility] one Number INTERFACE SYSTEM INTERFACE SYSTEM Refer to clinic/hospital department * PTT (04/25/2006) PTT 26 23 - 31 Sec INTERFACE SYSTEM Specimen Performing Organization Address [facility] one Number INTERFACE SYSTEM INTERFACE SYSTEM Refer to clinic/hospital department * PROTIME-INR (04/25/2006) PROTIME 11.4 (H) 9.0 - 11.0 Sec INTERFACE SYSTEM INR 1.14 (L) 2.0 - 3.0 INTERFACE SYSTEM Specimen Performing Organization Address City/State/Zipcode Ph one Number INTERFACE SYSTEM INTERFACE SYSTEM Refer to clinic/hospital department documented in this encounter Visit Diagnoses Diagnosis Atrial fibrillation - Primary documented in this encounter
--- OUTSIDE RECORDS SUMMARY | 2020-03-24 14:52 | XMS REPORT | Encounter Summary ---
Author Author [facility] Organization [facility] Address Unknown Phone Unavailable Care Team Providers Care Toilet Products Molder Name Role Phone Shahram Mccallum MD PCP Unavailable Claus Couch MD PCP Encounter Details Care Team Description Date Type Department Junior Beal MD [address] [place] [address] Other Convulsions (Primary Dx) 03/22/2006 Outpatient [facility] [address] [facility] Historical MEDICAID Social History Date Tobacco [...] Date/Time Associated Diag nosis MAGNESIUM LEVEL Routine 03/22/2006 11:25 AM CDT PHENYTOIN LEVEL, TOTAL Routine 03/22/2006 11:25 AM CDT BASIC METABOLIC PANEL Routine 03/22/2006 11:25 AM CDT documented in this encounter Results * PHENYTOIN LEVEL, TOTAL (03/22/2006 11:25 AM CDT) PHENYTOIN TOTAL 16.7 10 - 20 ug/ml INTERFACE SYSTEM Specimen Narrative Performed At NON-FASTING INTERFACE SYSTEM Performing Organization Address City/State/Zipcode Ph one Number INTERFACE SYSTEM INTERFACE SYSTEM Refer to clinic/hospital department * MAGNESIUM LEVEL (03/22/2006 11:25 AM CDT) MAGNESIUM 1.7 (L) 1.8 - 2.4 mg/dl INTERFACE SYSTEM Specimen Narrative Performed At NON-FASTING INTERFACE SYSTEM Performing Organization Address [facility] one Number INTERFACE SYSTEM INTERFACE SYSTEM Refer to clinic/hospital department * BASIC METABOLIC PANEL (03/22/2006 11:25 AM CDT) GLUCOSE 167 (H) 70 - 110 mg/dl INTERFACE SYSTEM BUN 18.0 7 - 20 mg/dl INTERFACE SYSTEM CREATININE 0.9 0.8 - 1.3 mg/dl INTERFACE SYSTEM BUN/CREAT RATIO 20.0 10 - 20 INTERFACE SYSTEM SODIUM 137 135 - 145 mmol/L INTERFACE SYSTEM POTASSIUM 4.1 3.3 - 4.8 mmol/L INTERFACE SYSTEM CHLORIDE 101 98 - 107 mmol/L INTERFACE SYSTEM CO2 25.3 22 - 31 mmol/L INTERFACE SYSTEM ANION GAP 15 4 - 20 INTERFACE SYSTEM CALCIUM 8.6 8.5 - 10.1 mg/dl INTERFACE SYSTEM Specimen Narrative Performed At NON-FASTING INTERFACE SYSTEM Performing Organization Address City/[facility] one Number INTERFACE SYSTEM INTERFACE SYSTEM Refer to clinic/hospital department documented in this encounter Visit Diagnoses Diagnosis Other convulsions - Primary documented in this encounter
--- OUTSIDE RECORDS SUMMARY | 2020-03-24 14:52 | XMS REPORT | Encounter Summary ---
Author Author [facility] Organization [facility] Address Unknown Phone Unavailable Care Team Providers Care Investigative Agent Name Role Phone Shahram Mccallum MD PCP Unavailable Claus Couch MD PCP Encounter Details Care Team Description Date Type Department Shahram Mccallum MD NO ADDRESS ON FILE Allergic rhinitis NEC (Primary Dx) 08/25/2005 Outpatient [facility] Consol idated Historical [facility] [address] [place] [address] Social History Date Tobacco Use Types Packs/Day Years Used Never Assessed Sex Assigned at Date Recorded Not on file Industry Job Start Date Occupation Not on file Not on file Not on file Travel End Travel History Travel Start No recent travel history available. documented as of this encounter Plan of Treatment Not on filedocumented as of this encounter Visit Diagnoses Diagnosis Allergic rhinitis NEC - Primary Allergic rhinitis due to other allergen documented in this encounter
--- OUTSIDE RECORDS SUMMARY | 2020-03-24 14:52 | XMS REPORT | Encounter Summary ---
Author Author [facility] Organization [facility] Address Unknown Phone Unavailable Care Team Providers Care Water Leak Repairer Name Role Phone Shahram Mccallum MD PCP Unavailable Claus Couch MD PCP Encounter Details Care Team Description Date Type Department Junior Beal MD [address] [place] [id number] Unspecified Essential Hypertension (Prim rolando Dx) 02/02/2006 Outpatient [facility] Consol idated Historical [address] [address] Social History Date Tobacco Use Types Packs/Day Years Used Never Assessed Sex Assigned at Date Recorded Not on file Industry Job Start Date Occupation Not on file Not on file Not on file Travel End Travel History Travel Start No recent travel history available. documented as of this encounter Plan of Treatment Not on filedocumented as of this encounter Visit Diagnoses Diagnosis Unspecified essential hypertension - Pr imary documented in this encounter
--- OUTSIDE RECORDS SUMMARY | 2020-03-24 14:52 | XMS REPORT | Encounter Summary ---
Author Author [facility] Organization [facility] Address Unknown Phone Unavailable Care Team Providers Care Sales Host Name Role Phone Shahram Mccallum MD PCP Unavailable Claus Couch MD PCP Encounter Details Care Team Description Date Type Department Junior Beal MD [address] [place] [address] Ami, Episd (Primary Dx) 02/02/2006 Outpatient [facility] Historical [address] [address] Social History Date Tobacco Use [...] encounter Visit Diagnoses Diagnosis Acute myocardial infarction, unspecifie d site, episode of care unspecified - Primary documented in this encounter
--- OUTSIDE RECORDS SUMMARY | 2020-03-24 14:52 | XMS REPORT | Encounter Summary ---
Author Author [facility] Organization [facility] Address Unknown Phone Unavailable Care Team Providers Care Motor Coach Supervisor Name Role Phone Shahram Mccallum MD PCP Unavailable Claus Couch MD PCP Encounter Details Care Team Description Date Type Department Shahram Mccallum MD NO ADDRESS ON FILE DM w/o Complication Type I (Primary Dx) 03/01/2006 Outpatient [facility] Historical Social [...]
--- OUTSIDE RECORDS SUMMARY | 2020-03-24 14:52 | XMS REPORT | Encounter Summary ---
Author Author [facility] Organization [facility] Address Unknown Phone Unavailable Care Team Providers Care Lan Manager Name Role Phone Shahram Mccallum MD PCP Unavailable Claus Couch MD PCP Encounter Details Care Team Description Date Type Department Shahram Mccallum MD NO ADDRESS ON FILE DIABETES MELLITUS TYPE I-UNCOMPL (Primar y Dx) 11/24/2005 Outpatient [facility] [address] [facility] Historical MEDICAID Social History Date [...] Date/Time Associated Diag nosis HEMOGLOBIN A1C Routine 11/24/2005 8:35 AM LAMINATION OPERATOR LIPID PANEL Routine 11/24/2005 8:35 AM LAMINATION OPERATOR COMPREHENSIVE METABOLIC Routine 11/24/2005 PANEL 8:35 AM LAMINATION OPERATOR documented in this encounter Results * HEMOGLOBIN A1C (11/24/2005 8:35 AM LAMINATION OPERATOR) HEMOGLOBIN A1C 6.2 (H) 0 - 6.0 % INTERFACE SYSTEM GLUCOSE, MEAN 130 mg/dl INTERFACE BLOOD SYSTEM Specimen Performing Organization Address City/State/Zipcode Ph one Number INTERFACE SYSTEM INTERFACE SYSTEM Refer to clinic/hospital department * LIPID PANEL (11/24/2005 8:35 AM LAMINATION OPERATOR) CHOLESTEROL 307 (H) 140 - 200 mg/dl INTERFACE SYSTEM TRIGLYCERIDE 705 (H) 0 - 199 mg/dl INTERFACE Comment: SYSTEM REFERENCE RANGE - TRIGLYCERIDES NORMAL LESS THAN 150 mg/dl BORDERLINE HIGH 150 - 199 mg/dl HIGH 200 - 499 mg/dl VERY HIGH GREATER THAN OR = 500 mg/dl HDL 40 27 - 67 mg/dl INTERFACE SYSTEM LDL 176 (H) <130 mg/dl INTERFACE CHOLESTEROL, Comment: SYSTEM [...] HR FAST INTERFACE SYSTEM Performing Organization Address [facility] one Number INTERFACE SYSTEM INTERFACE SYSTEM Refer to clinic/hospital department * COMPREHENSIVE METABOLIC PANEL (11/24/2005 8:35 AM LAMINATION OPERATOR) GLUCOSE 140 (H) 70 - 110 mg/dl INTERFACE SYSTEM BUN 20.0 7 - 20 mg/dl INTERFACE SYSTEM CREATININE 1.0 0.8 - 1.3 mg/dl INTERFACE SYSTEM BUN/CREAT RATIO 20.0 10 - 20 INTERFACE SYSTEM SODIUM 138 135 - 145 mmol/L INTERFACE SYSTEM POTASSIUM 4.3 3.5 - 5.1 mmol/L INTERFACE SYSTEM CHLORIDE 98 98 - 107 mmol/L INTERFACE SYSTEM CO2 26.4 22 - 31 mmol/L INTERFACE SYSTEM ANION GAP 18 4 - 20 INTERFACE SYSTEM CALCIUM 8.8 8.5 - 10.1 mg/dl INTERFACE SYSTEM ALBUMIN 4.3 3.4 - 5.0 g/dl INTERFACE SYSTEM TOTAL PROTEIN 7.0 6.4 - 8.2 g/dl INTERFACE SYSTEM GLOBULIN (CALC) 2.7 INTERFACE SYSTEM ALBUMIN/GLOBULI 1.6 INTERFACE N RATIO SYSTEM BILIRUBIN TOTAL 0.3 <1.1 mg/dl INTERFACE SYSTEM ALKALINE 50 50 - 136 IU/L INTERFACE PHOSPHATASE SYSTEM AST 27 10 - 40 IU/L INTERFACE SYSTEM ALT 35 25 - 70 IU/L INTERFACE SYSTEM Specimen Narrative Performed At 14 HR FAST INTERFACE SYSTEM Performing Organization Address [facility] one Number INTERFACE SYSTEM INTERFACE SYSTEM Refer to clinic/hospital department documented in this encounter Visit Diagnoses Diagnosis Type I (juvenile type) diabetes mellitu s without mention of complication, not stated as uncontrolled - Primary documented in this encounter
--- OUTSIDE RECORDS SUMMARY | 2020-03-24 14:52 | XMS REPORT | Encounter Summary ---
Author Author [facility] Organization [facility] Address Unknown Phone Unavailable Care Team Providers Care Plugger Worker Name Role Phone Shahram Mccallum MD PCP Unavailable Claus Couch MD PCP Encounter Details Care Team Description Date Type Department Shahram Mccallum MD NO ADDRESS ON FILE Unspecified Chest Pain (Primary Dx) 03/01/2006 Outpatient [facility] [address] [place] [address] Social History Date Tobacco Use [...]
--- OUTSIDE RECORDS SUMMARY | 2020-03-24 14:52 | XMS REPORT | Encounter Summary ---
Author Author [facility] Organization [facility] Address Unknown Phone Unavailable Care Team Providers Care Meteorological Observer Name Role Phone Shahram Mccallum MD PCP Unavailable Claus Couch MD PCP Encounter Details Care Team Description Date Type Department Shahram Mccallum MD NO ADDRESS ON FILE DIABETES MELLITUS TYPE I-UNCOMPL (Primar y Dx) 08/13/2005 Outpatient [facility] Consol idated Historical [address] [address] Social History Date Tobacco Use Types Packs/Day [...]
--- OUTSIDE RECORDS SUMMARY | 2020-03-24 14:52 | XMS REPORT | Encounter Summary ---
Author Author [facility] Organization [facility] Address Unknown Phone Unavailable Care Team Providers Care Binder Folder Operator Name Role Phone Shahram Mccallum MD PCP Unavailable Claus Couch MD PCP Encounter Details Care Team Description Date Type Department Shahram Mccallum MD NO ADDRESS ON FILE Cor Athrscl-Uns Vessel (Primary Dx) 04/12/2006 Outpatient [facility] Consol idated Historical [facility] [address] [place] [address] Social History Date Tobacco Use Types Packs/Day [...] Coronary atherosclerosis of unspecified type of vessel, [place] or graft - Primary documented in this encounter
--- OUTSIDE RECORDS SUMMARY | 2020-03-24 14:52 | XMS REPORT | Encounter Summary ---
Author Author [facility] Organization [facility] Address Unknown Phone Unavailable Care Team Providers Care Nuclear Licensing Engineer Name Role Phone Shahram Mccallum MD PCP Unavailable Claus Couch MD PCP Encounter Details Care Team Description Date Type Department Shahram Mccallum MD NO ADDRESS ON FILE Routine Medical Exam (Primary Dx) 03/02/2006 Outpatient [facility] Consol idated Historical [facility] [address] [place] [address] Social History Date Tobacco Use Types Packs/Day [...]
--- OUTSIDE RECORDS SUMMARY | 2020-03-24 14:52 | XMS REPORT | Encounter Summary ---
Author Author [facility] Organization [facility] Address Unknown Phone Unavailable Care Team Providers Care Wildlife Refuge Specialist Name Role Phone Shahram Mccallum MD PCP Unavailable Claus Couch MD PCP Encounter Details Care Team Description Date Type Department Shahram Mccallum MD NO ADDRESS ON FILE DIABETES MELLITUS TYPE II-UNCOMPL (Prima ry Dx) 12/03/2005 Outpatient [facility] Historical Social [...]
--- OUTSIDE RECORDS SUMMARY | 2020-03-24 14:52 | XMS REPORT | Encounter Summary ---
Author Author [facility] Organization [facility] Address Unknown Phone Unavailable Care Team Providers Care Educational Psychology Professor Name Role Phone Shahram Mccallum MD PCP Unavailable Claus Couch MD PCP Encounter Details Care Team Description Date Type Department Walter Oconnor MD [address] [facility] [address] [place] [address] No proc for reasons NEC (Primary Dx) 10/26/2005 Outpatient [facility] [address] [address] Social History Date Tobacco Use [...]
--- OUTSIDE RECORDS SUMMARY | 2020-03-24 14:52 | XMS REPORT | Encounter Summary ---
Author Author [facility] Organization [facility] Address Unknown Phone Unavailable Care Team Providers Care Retail Solar Advisor Name Role Phone Shahram Mccallum MD PCP Unavailable Claus Couch MD PCP Encounter Details Care Team Description Date Type Department Shahram Mccallum MD NO ADDRESS ON FILE Cor Athrscl-Uns Vessel (Primary Dx) 02/25/2006 Outpatient [facility] [address] [facility] [...] Priority Date/Time Associated Diag nosis AST Routine 02/25/2006 7:40 AM CDT HEMOGLOBIN A1C Routine 02/25/2006 7:40 AM CDT LIPID PANEL Routine 02/25/2006 7:40 AM CDT BASIC METABOLIC PANEL Routine 02/25/2006 7:40 AM CDT documented in this encounter Results * HEMOGLOBIN A1C (02/25/2006 7:40 AM CDT) HEMOGLOBIN A1C 6.1 (H) 0 - 6.0 % INTERFACE SYSTEM GLUCOSE, MEAN 127 mg/dl INTERFACE BLOOD SYSTEM Specimen Narrative Performed At 14 HR FAST INTERFACE SYSTEM Performing Organization Address City/State/Zipcode Ph one Number INTERFACE SYSTEM INTERFACE SYSTEM Refer to clinic/hospital department * AST (02/25/2006 7:40 AM CDT) AST 23 10 - 40 IU/L INTERFACE SYSTEM Specimen Narrative Performed At 14 HR FAST INTERFACE SYSTEM Performing Organization Address City/State[facility] Ph one Number INTERFACE SYSTEM INTERFACE SYSTEM Refer to clinic/hospital department * LIPID PANEL (02/25/2006 7:40 AM CDT) CHOLESTEROL 389 (H) 140 - 200 mg/dl INTERFACE SYSTEM TRIGLYCERIDE 980 (H) 0 - 199 mg/dl INTERFACE Comment: SYSTEM REFERENCE RANGE - TRIGLYCERIDES NORMAL LESS THAN 150 mg/dl BORDERLINE HIGH 150 - 199 mg/dl HIGH 200 - 499 mg/dl VERY HIGH GREATER THAN OR = 500 mg/dl HDL 36 27 - 67 mg/dl INTERFACE SYSTEM LDL 212 (H) <130 mg/dl INTERFACE CHOLESTEROL, Comment: SYSTEM [...] HR FAST INTERFACE SYSTEM Performing Organization Address City/[facility] Ph one Number INTERFACE SYSTEM INTERFACE SYSTEM Refer to clinic/hospital department * BASIC METABOLIC PANEL (02/25/2006 7:40 AM CDT) GLUCOSE 145 (H) 70 - 110 mg/dl INTERFACE SYSTEM BUN 18.0 7 - 20 mg/dl INTERFACE SYSTEM CREATININE 1.0 0.8 - 1.3 mg/dl INTERFACE SYSTEM BUN/CREAT RATIO 18.0 10 - 20 INTERFACE SYSTEM SODIUM 139 135 - 145 mmol/L INTERFACE SYSTEM POTASSIUM 4.2 3.5 - 5.1 mmol/L INTERFACE SYSTEM CHLORIDE 101 98 - 107 mmol/L INTERFACE SYSTEM CO2 25.3 22 - 31 mmol/L INTERFACE SYSTEM ANION GAP 17 4 - 20 INTERFACE SYSTEM CALCIUM 8.8 8.5 - 10.1 mg/dl INTERFACE SYSTEM Specimen Narrative Performed At 14 HR FAST INTERFACE SYSTEM Performing Organization Address City/[facility] Ph one Number INTERFACE SYSTEM INTERFACE SYSTEM Refer to clinic/hospital department documented in this encounter Visit Diagnoses Diagnosis Coronary atherosclerosis of unspecified type of vessel, [place] dee-ni' or graft - Primary documented in this encounter
--- OUTSIDE RECORDS SUMMARY | 2020-03-24 14:52 | XMS REPORT | Encounter Summary ---
Author Author [facility] Organization [facility] Address Unknown Phone Unavailable Care Team Providers Care Crematory Operator Name Role Phone Shahram Mccallum MD PCP Unavailable Claus Couch MD PCP Encounter Details Care Team Description Date Type Department Walter Oconnor MD [address] [facility] [address] [place] [address] Dermatitis due to Drugs and Medicines Ta pamela Thibodeaux (Primary Dx) 02/08/2006 Outpatient [facility] Services [address] [address] Social History Date Tobacco Use [...] Associated Diag nosis CBC WITHOUT DIFFERENTIAL Routine 02/08/2006 11:30 AM CDT documented in this encounter Results * CBC WITHOUT DIFFERENTIAL (02/08/2006 11:30 AM CDT) WBC 6.2 4.0 - 10.8 x10E3 INTERFACE SYSTEM RBC 4.51 (L) 4.7 - 6.1 x10E6 INTERFACE SYSTEM HEMOGLOBIN 13.1 (L) 14.0 - 18.0 g/dL INTERFACE SYSTEM HEMATOCRIT 37.4 (L) 42 - 52 % INTERFACE SYSTEM MCV 82.9 80.0 - 94.0 fL INTERFACE SYSTEM MCH 29.0 27 - 33 pg INTERFACE SYSTEM MCHC 35.0 32 - 35 g/dL INTERFACE SYSTEM RDW 15.7 12.7 - 16.5 % INTERFACE SYSTEM PLATELETS 272 130 - 400 x10E3 INTERFACE SYSTEM Specimen Performing Organization Address City/State/Zipcode Ph one Number INTERFACE SYSTEM INTERFACE SYSTEM Refer to clinic/hospital department documented in this encounter Visit Diagnoses Diagnosis Dermatitis due to drugs and medicines jeremias alonso internally(693.0) - Primary Dermatitis due to drugs and medicines jeremias alonso internally documented in this encounter
--- OUTSIDE RECORDS SUMMARY | 2020-03-24 14:52 | XMS REPORT | Encounter Summary ---
Author Author [facility] Organization [facility] Address Unknown Phone Unavailable Care Team Providers Care Bean Sorter Name Role Phone Shahram Mccallum MD PCP Unavailable Claus Couch MD PCP Encounter Details Care Team Description Date Type Department Shahram Mccallum MD NO ADDRESS ON FILE CORONARY ATHEROSCLER UNSPEC VESSEL (Prim rolando Dx) 12/01/2005 Outpatient [facility] Consol idated Historical [facility] [address] [place] [address] Social History Date Tobacco Use Types Packs/Day [...] Coronary atherosclerosis of unspecified type of vessel, [place] or graft - Primary documented in this encounter
--- OUTSIDE RECORDS SUMMARY | 2020-03-24 14:52 | XMS REPORT | Encounter Summary ---
Author Author [facility] Organization [facility] Address Unknown Phone Unavailable Care Team Providers Care Freight Brakeman Name Role Phone Shahram Mccallum MD PCP Unavailable Claus Couch MD PCP Encounter Details Care Team Description Date Type Department Damien Odell, DO [address] [place], [place] [address] Other Specified Disorder of Bladder (Farhana matta Dx) 01/16/2006 Emergency [facility] Emergency Department [address] [address] Social History Date Tobacco Use [...] of this encounter Visit Diagnoses Diagnosis Other specified disorder of bladder - P rimary documented in this encounter
--- OUTSIDE RECORDS SUMMARY | 2020-03-24 14:52 | XMS REPORT | Encounter Summary ---
Author Author [facility] Organization [facility] Address Unknown Phone Unavailable Care Team Providers Care Chief Of Field Operations Name Role Phone Shahram Mccallum MD PCP Unavailable Claus Couch MD PCP Encounter Details Care Team Description Date Type Department Shahram Mccallum MD NO ADDRESS ON FILE DIABETES TYPE II W MANIF NEC (Primary Dx ) 09/25/2005 Outpatient [facility] Historical Social [...]
--- OUTSIDE RECORDS SUMMARY | 2020-03-24 14:52 | XMS REPORT | Encounter Summary ---
Author Author [facility] Organization [facility] Address Unknown Phone Unavailable Care Team Providers Care Dress Designer Name Role Phone Shahram Mccallum MD PCP Unavailable Claus Couch MD PCP Encounter Details Care Team Description Date Type Department Junior Nazario MD Intermed coronary synd (Primary Dx) 09/14/2005 Emergency [facility] Emergency Department [address] [address] Social History Date Tobacco Use [...] Date/Time Associated Diag nosis CARDIAC ENZYMES Routine 09/15/2005 6:27 AM AVICULTURIST CBC WITH MANUAL Routine 09/14/2005 DIFFERENTIAL 6:00 PM AVICULTURIST TROPONIN Routine 09/14/2005 6:00 PM AVICULTURIST MYOGLOBIN Routine 09/14/2005 6:00 PM AVICULTURIST MAGNESIUM LEVEL Routine 09/14/2005 6:00 PM AVICULTURIST COMPREHENSIVE METABOLIC Routine 09/14/2005 PANEL 6:00 PM AVICULTURIST documented in this encounter Results * CARDIAC ENZYMES (09/15/2005 6:27 AM AVICULTURIST) INTERPRETATION See below. INTERFACE Comment: SYSTEM INTERPRETATION - 09/15/05 0538 Single set of markers suggests an element of myocardial injury. Linda Cerrato. Specimen Narrative Performed At CARDIAC TROP-12HR TROP-12 HR from [id number]. INT ERFACE SYSTEM CARDIAC Final: FINAL from [id number] . Performing Organization Address City/[facility] Ph one Number INTERFACE SYSTEM INTERFACE SYSTEM Refer to clinic/hospital department * CBC WITH MANUAL DIFFERENTIAL (09/14/2005 6:00 PM AVICULTURIST) WBC 6.3 4.0 - 10.8 x10E3 INTERFACE SYSTEM RBC 4.34 (L) 4.7 - 6.1 x10E6 INTERFACE SYSTEM HEMOGLOBIN 12.5 (L) 14.0 - 18.0 g/dL INTERFACE SYSTEM HEMATOCRIT 36.4 (L) 42 - 52 % INTERFACE SYSTEM MCV 84.0 80.0 - 94.0 fL INTERFACE SYSTEM MCH 28.8 27 - 33 pg INTERFACE SYSTEM MCHC 34.2 32 - 35 g/dL INTERFACE SYSTEM RDW 14.7 12.7 - 16.5 % INTERFACE SYSTEM PLATELETS 251 130 - 400 x10E3 INTERFACE SYSTEM MPV 6.4 (L) 7.4 - 10.4 fL INTERFACE SYSTEM NEUTROPHILS 55.1 37.0 - 75.0 % INTERFACE SYSTEM MONOCYTES 7.6 0.0 - 12.0 % INTERFACE SYSTEM EOSINOPHILS 3.3 0.0 - 7.0 % INTERFACE SYSTEM BASOPHILS 1.1 0.0 - 2.5 % INTERFACE SYSTEM NEUTROPHIL 3.5 2.0 - 6.9 x10E3 INTERFACE ABSOLUTE SYSTEM MONOCYTE 0.5 0.0 - 0.9 x10E3 INTERFACE ABSOLUTE SYSTEM EOSINOPHIL 0.2 0.0 - 0.7 x10E3 INTERFACE ABSOLUTE SYSTEM BASOPHILS 0.1 0 - 0.2 x10E3 INTERFACE ABSOLUTE SYSTEM BASOPHILS 3 % INTERFACE SYSTEM EOSINOPHILS 1 % INTERFACE SYSTEM NEUTROPHILS, 49 % INTERFACE SEG SYSTEM LYMPHOCYTES 47 % INTERFACE SYSTEM PLATELET EST. Normal INTERFACE SYSTEM WBC ESTIMATE Normal INTERFACE SYSTEM Specimen Performing Organization Address [facility] one Number INTERFACE SYSTEM INTERFACE SYSTEM Refer to clinic/hospital department * TROPONIN (09/14/2005 6:00 PM AVICULTURIST) TROPONIN I 0.46 (HH)Comment: CALLED TO 0 - 0.4 ng/ml IN [facility]LLY [facility]CKINNEY IN ER AT 1932/MD SYSTEM Specimen Narrative Performed At CARDIAC NYLA-0HR NYLA-0 HR from [id number]. INTERFA CE SYSTEM CARDIAC TROP-0HR TROP-0 HR from [id number]. Performing Organization Address [facility] one Number INTERFACE SYSTEM INTERFACE SYSTEM Refer to clinic/hospital department * MYOGLOBIN (09/14/2005 6:00 PM AVICULTURIST) MYOGLOBIN, 30 16 - 97 ng/ml INTERFACE PLASMA SYSTEM Specimen Narrative Performed At CARDIAC NYLA-0HR NYLA-0 HR from [id number]. INTERFA CE SYSTEM CARDIAC TROP-0HR TROP-0 HR from [id number]. Performing Organization Address [facility] one Number INTERFACE SYSTEM INTERFACE SYSTEM Refer to clinic/hospital department * MAGNESIUM LEVEL (09/14/2005 6:00 PM AVICULTURIST) MAGNESIUM 1.9 1.8 - 2.4 mg/dl INTERFACE SYSTEM Specimen Performing Organization Address [facility] one Number INTERFACE SYSTEM INTERFACE SYSTEM Refer to clinic/hospital department * COMPREHENSIVE METABOLIC PANEL (09/14/2005 6:00 PM AVICULTURIST) GLUCOSE 125 (H) 70 - 110 mg/dl INTERFACE SYSTEM BUN 17.0 7 - 20 mg/dl INTERFACE SYSTEM CREATININE 1.0 0.8 - 1.3 mg/dl INTERFACE SYSTEM BUN/CREAT RATIO 17.0 10 - 20 INTERFACE SYSTEM SODIUM 139 135 - 145 mmol/L INTERFACE SYSTEM POTASSIUM 4.1 3.5 - 5.1 mmol/L INTERFACE SYSTEM CHLORIDE 100 98 - 107 mmol/L INTERFACE SYSTEM CO2 25.9 22 - 31 mmol/L INTERFACE SYSTEM ANION GAP 17 4 - 20 INTERFACE SYSTEM CALCIUM 9.1 8.5 - 10.1 mg/dl INTERFACE SYSTEM ALBUMIN 4.5 3.4 - 5.0 g/dl INTERFACE SYSTEM TOTAL PROTEIN 7.0 6.4 - 8.2 g/dl INTERFACE SYSTEM GLOBULIN (CALC) 2.5 INTERFACE SYSTEM ALBUMIN/GLOBULI 1.8 INTERFACE N RATIO SYSTEM BILIRUBIN TOTAL 0.2 <1.1 mg/dl INTERFACE SYSTEM ALKALINE 57 50 - 136 IU/L INTERFACE PHOSPHATASE SYSTEM AST 20 10 - 40 IU/L INTERFACE SYSTEM ALT 33 25 - 70 IU/L INTERFACE SYSTEM Specimen Performing Organization Address [facility] one Number INTERFACE SYSTEM INTERFACE SYSTEM Refer to clinic/hospital department documented in this encounter Visit Diagnoses Diagnosis Intermed coronary synd - Primary Intermediate coronary syndrome documented in this encounter
--- OUTSIDE RECORDS SUMMARY | 2020-03-24 14:52 | XMS REPORT | Encounter Summary ---
Author Author [facility] Organization [facility] Address Unknown Phone Unavailable Care Team Providers Care Manager Nursing Name Role Phone Shahram Mccallum MD PCP Unavailable Claus Couch MD PCP Encounter Details Care Team Description Date Type Department Shahram Mccallum MD NO ADDRESS ON FILE Unspecified Chest Pain (Primary Dx) 03/01/2006 Outpatient [facility] Consol idated Historical [facility] [address] [place] [address] Social History Date Tobacco Use Types Packs/Day [...]
--- OUTSIDE RECORDS SUMMARY | 2020-03-24 14:52 | XMS REPORT | Encounter Summary ---
Author Author [facility] Organization [facility] Address Unknown Phone Unavailable Care Team Providers Care Procedural Nurse Name Role Phone Shahram Mccallum MD PCP Unavailable Claus Couch MD PCP Encounter Details Care Team Description Date Type Department Junior Beal MD [address] [place] [address] AMI NOS, Subsequent Episd (Primary Dx) 02/02/2006 Outpatient [facility] [address] [place] [phone] Social History Date Tobacco Use Types [...] Diagnosis Acute myocardial infarction, unspecifie d site, subsequent episode of care - Primary documented in this encounter
--- OUTSIDE RECORDS SUMMARY | 2020-03-24 14:53 | XMS REPORT | Encounter Summary ---
Author Author [facility] Organization [facility] Address Unknown Phone Unavailable Care Team Providers Care Psychopaedic Nurse Name Role Phone Shahram Mccallum MD PCP Unavailable Claus Couch MD PCP Encounter Details Care Team Description Date Type Department Shahram Mccallum MD NO ADDRESS ON FILE HEMORRHAGE COMPLIC PROCEDURE (Primary Dx ) 07/24/2005 Outpatient [facility] Consol idated Historical [facility] [address] [place] [address] Social History Date Tobacco Use Types Packs/Day Years Used Never Assessed Sex Assigned at Date Recorded Not on file Industry Job Start Date Occupation Not on file Not on file Not on file Travel End Travel History Travel Start No recent travel history available. documented as of this encounter Plan of Treatment Not on filedocumented as of this encounter Visit Diagnoses Diagnosis Hemorrhage complicating a procedure - P rimary documented in this encounter
--- OUTSIDE RECORDS SUMMARY | 2020-03-24 14:53 | XMS REPORT | Encounter Summary ---
Author Author [facility] Organization [facility] Address Unknown Phone Unavailable Care Team Providers Care Equipment Sterilizer Name Role Phone Shahram Mccallum MD PCP Unavailable Claus Couch MD PCP Encounter Details Care Team Description Date Type Department Shahram Mccallum MD NO ADDRESS ON FILE Fx metacarpal NOS-closed (Primary Dx) 01/02/2005 Outpatient [facility] Consol idated Historical [address] [address] Social History Date Tobacco Use Types Packs/Day Years Used Never Assessed Sex Assigned at Date Recorded Not on file Industry Job Start Date Occupation Not on file Not on file Not on file Travel End Travel History Travel Start No recent travel history available. documented as of this encounter Plan of Treatment Not on filedocumented as of this encounter Visit Diagnoses Diagnosis Fx metacarpal NOS-closed - Primary Closed fracture of metacarpal bone(s), site unspecified documented in this encounter
--- OUTSIDE RECORDS SUMMARY | 2020-03-24 14:53 | XMS REPORT | Encounter Summary ---
Author Author [facility] Organization [facility] Address Unknown Phone Unavailable Care Team Providers Care Latent Print Examiner Name Role Phone Shahram Mccallum MD PCP Unavailable Claus Couch MD PCP Encounter Details Care Team Description Date Type Department Shahram Mccallum MD NO ADDRESS ON FILE CHEST PAIN NOS (Primary Dx) 04/30/2005 [facility] [address] [place] [address] Social History Date Tobacco Use [...]
--- OUTSIDE RECORDS SUMMARY | 2020-03-24 14:53 | XMS REPORT | Encounter Summary ---
Author Author [facility] Organization [facility] Address Unknown Phone Unavailable Care Team Providers Care Wet Washer Machine Name Role Phone Shahram Mccallum MD PCP Unavailable Claus Couch MD PCP Encounter Details Care Team Description Date Type Department Sahhram Mccallum MD NO ADDRESS ON FILE Fx metacarpal NOS-closed (Primary Dx) 02/13/2005 Outpatient [facility] Consol idated Historical [address] [address] Social History Date Tobacco Use Types Packs/Day [...]
--- OUTSIDE RECORDS SUMMARY | 2020-03-24 14:53 | XMS REPORT | Encounter Summary ---
Author Author [facility] Organization [facility] Address Unknown Phone Unavailable Care Team Providers Care Wood Heel Flap Inserter Name Role Phone Shahram Mccallum MD PCP Unavailable Claus Couch MD PCP Encounter Details Care Team Description Date Type Department Shahram Mccallum MD NO ADDRESS ON FILE DIABETES MELLITUS TYPE I-UNCOMPL (Primar y Dx) 04/23/2005 Outpatient [facility] Historical Social [...]
--- OUTSIDE RECORDS SUMMARY | 2020-03-24 14:53 | XMS REPORT | Encounter Summary ---
Author Author [facility] Organization [facility] Address Unknown Phone Unavailable Care Team Providers Care Substance Abuse Technician Name Role Phone Shahram Mccallum MD PCP Unavailable Claus Couch MD PCP Encounter Details Care Team Description Date Type Department Shahram Mccallum MD NO ADDRESS ON FILE LOCAL SUPRFICIAL SWELLNG (Primary Dx) 11/07/2004 Outpatient [facility] Consol idated Historical [address] [address] Social History Date Tobacco Use Types Packs/Day Years Used Never Assessed Sex Assigned at Date Recorded Not on file Industry Job Start Date Occupation Not on file Not on file Not on file Travel End Travel History Travel Start No recent travel history available. documented as of this encounter Plan of Treatment Not on filedocumented as of this encounter Visit Diagnoses Diagnosis Localized superficial swelling, mass, o r lump - Primary documented in this encounter
--- OUTSIDE RECORDS SUMMARY | 2020-03-24 14:53 | XMS REPORT | Encounter Summary ---
Author Author [facility] Organization [facility] Address Unknown Phone Unavailable Care Team Providers Care Etched Circuit Processor Name Role Phone Shahram Mccallum MD PCP Unavailable Claus Couch MD PCP Encounter Details Care Team Description Date Type Department Walter Oconnor MD [address] [facility] [address] [place] [address] No proc for reasons NEC (Primary Dx) 03/30/2005 Outpatient [facility] Laboratory Services [address] [address] Social History Date Tobacco Use [...]
--- OUTSIDE RECORDS SUMMARY | 2020-03-24 14:53 | XMS REPORT | Encounter Summary ---
Author Author [facility] Organization [facility] Address Unknown Phone Unavailable Care Team Providers Care Senior Software Development Manager Name Role Phone Shahram Mccallum MD PCP Unavailable Claus Couch MD PCP Encounter Details Care Team Description Date Type Department Shahram Mccallum MD NO ADDRESS ON FILE Pain in limb (Primary Dx) 02/13/2005 [facility] Historical [address] [address] Social History Date Tobacco Use [...]
--- OUTSIDE RECORDS SUMMARY | 2020-03-24 14:53 | XMS REPORT | Encounter Summary ---
Author Author [facility] Organization [facility] Address Unknown Phone Unavailable Care Team Providers Care Clinical Research Manager Name Role Phone Shahram Mccallum MD PCP Unavailable Claus Couch MD PCP Encounter Details Care Team Description Date Type Department Walter Oconnor MD [address] [facility] [address] [place] [address] CORONARY ATHEROSCLER UNSPEC VESSEL (Prim rolando Dx) 06/01/2005 Outpatient [facility] Laboratory Services [address] [address] Social History Date Tobacco Use [...] Date/Time Associated Diag nosis LIPID PANEL Routine 06/01/2005 8:12 AM CDT COMPREHENSIVE METABOLIC Routine 06/01/2005 PANEL 8:12 AM CDT documented in this encounter Results * LIPID PANEL (06/01/2005 8:12 AM CDT) CHOLESTEROL 231 (H) 140 - 200 mg/dl INTERFACE SYSTEM TRIGLYCERIDE 419 (H) 0 - 199 mg/dl INTERFACE Comment: SYSTEM REFERENCE RANGE - TRIGLYCERIDES NORMAL LESS THAN 150 mg/dl BORDERLINE HIGH 150 - 199 mg/dl HIGH 200 - 499 mg/dl VERY HIGH GREATER THAN OR = 500 mg/dl HDL 32 27 - 67 mg/dl INTERFACE SYSTEM LDL 127 <130 mg/dl INTERFACE CHOLESTEROL, SYSTEM DIRECT Specimen Narrative Performed At 12 HR FAST INTERFACE SYSTEM Performing Organization Address [facility] Ph one Number INTERFACE SYSTEM INTERFACE SYSTEM Refer to clinic/hospital department * COMPREHENSIVE METABOLIC PANEL (06/01/2005 8:12 AM CDT) GLUCOSE 121 (H) 70 - 110 mg/dl INTERFACE SYSTEM BUN 25.0 (H) 7 - 20 mg/dl INTERFACE SYSTEM CREATININE 0.9 0.8 - 1.3 mg/dl INTERFACE SYSTEM BUN/CREAT RATIO 27.8 (H) 10 - 20 INTERFACE SYSTEM SODIUM 139 135 - 145 mmol/L INTERFACE SYSTEM POTASSIUM 4.3 3.5 - 5.1 mmol/L INTERFACE SYSTEM CHLORIDE 102 98 - 107 mmol/L INTERFACE SYSTEM CO2 27.8 22 - 31 mmol/L INTERFACE SYSTEM ANION GAP 14 4 - 20 INTERFACE SYSTEM CALCIUM 8.5 8.5 - 10.1 mg/dl INTERFACE SYSTEM ALBUMIN 4.4 3.4 - 5.0 g/dl INTERFACE SYSTEM TOTAL PROTEIN 6.8 6.4 - 8.2 g/dl INTERFACE SYSTEM GLOBULIN (CALC) 2.4 INTERFACE SYSTEM ALBUMIN/GLOBULI 1.8 INTERFACE N RATIO SYSTEM BILIRUBIN TOTAL 0.3 <1.1 mg/dl INTERFACE SYSTEM ALKALINE 45 (L) 50 - 136 IU/L INTERFACE PHOSPHATASE SYSTEM AST 21 10 - 40 IU/L INTERFACE SYSTEM ALT 34 25 - 70 IU/L INTERFACE SYSTEM Specimen Narrative Performed At 12 HR FAST INTERFACE SYSTEM Performing Organization Address [facility] Ph one Number INTERFACE SYSTEM INTERFACE SYSTEM Refer to clinic/hospital department documented in this encounter Visit Diagnoses Diagnosis Coronary atherosclerosis of unspecified type of vessel, [place] or graft - Primary documented in this encounter
--- OUTSIDE RECORDS SUMMARY | 2020-03-24 14:53 | XMS REPORT | Encounter Summary ---
Author Author [facility] Organization [facility] Address Unknown Phone Unavailable Care Team Providers Care Optometric Assistant Name Role Phone Shahram Mccallum MD PCP Unavailable Claus Couch MD PCP Encounter Details Care Team Description Date Type Department Shahram Mccallum MD NO ADDRESS ON FILE Fx metacarpal NOS-closed (Primary Dx) 01/23/2005 Outpatient [facility] Consol idated Historical [address] [address] Social History Date Tobacco Use Types Packs/Day [...]
--- OUTSIDE RECORDS SUMMARY | 2020-03-24 14:53 | XMS REPORT | Encounter Summary ---
Author Author [facility] Organization [facility] Address Unknown Phone Unavailable Care Team Providers Care Insurance Marketing Rep Name Role Phone Shahram Mccallum MD PCP Unavailable Claus Couch MD PCP Encounter Details Care Team Description Date Type Department Shahram Mccallum MD NO ADDRESS ON FILE [place] NOS FIRST EPISODE CARE (Primary Dx) 04/30/2005 Inpatient [facility] [address] [place] [address] Social History Date Tobacco Use [...] Date/Time Associated Diag nosis CARDIAC ENZYMES Routine 04/30/2005 1:00 PM CDT PTT Routine 04/30/2005 6:30 AM CDT TROPONIN Routine 04/30/2005 6:30 AM CDT CARDIAC INTERPRETATION (3 Routine 04/30/2005 HR) 3:55 AM CDT TROPONIN Routine 04/30/2005 3:55 AM CDT MYOGLOBIN Routine 04/30/2005 3:55 AM CDT PTT Routine 04/30/2005 1:00 AM CDT PROTIME-INR Routine 04/30/2005 1:00 AM CDT CBC WITH MANUAL Routine 04/30/2005 DIFFERENTIAL 1:00 AM CDT TROPONIN Routine 04/30/2005 1:00 AM CDT MYOGLOBIN Routine 04/30/2005 1:00 AM CDT MAGNESIUM LEVEL Routine 04/30/2005 1:00 AM CDT PHENYTOIN LEVEL, TOTAL Routine 04/30/2005 1:00 AM CDT COMPREHENSIVE METABOLIC Routine 04/30/2005 PANEL 1:00 AM CDT documented in this encounter Results * CARDIAC ENZYMES (04/30/2005 1:00 PM CDT) INTERPRETATION See below. INTERFACE Comment: SYSTEM INTERPRETATION - 05/01/05 0755 Abnormal increasing troponin-I results through 6 hours. Findings suggest acute myocardial ischemia or injury. Correlation with clinical history and EKG changes is recommended. Linda Elise. Specimen Narrative Performed At CARDIAC TROP-12HR TROP-12 HR from [id number]. INT ERFACE SYSTEM CARDIAC Final: FINAL from [id number] . Performing Organization Address City/[facility] Ph one Number INTERFACE SYSTEM INTERFACE SYSTEM Refer to clinic/hospital department * PTT (04/30/2005 6:30 AM CDT) PTT 79 (H) 25 - 33 Sec INTERFACE SYSTEM Specimen Narrative Performed At Preop Test? N INTERFACE SYSTEM Performing Organization Address City/[facility] Ph one Number INTERFACE SYSTEM INTERFACE SYSTEM Refer to clinic/hospital department * TROPONIN (04/30/2005 6:30 AM CDT) TROPONIN I 0.80 (HH)Comment: CALLED T0 0 - 0.4 ng/ml IN TERFACE OREN AT 0740. SYSTEM Specimen Narrative Performed At CARDIAC TROP-6HR TROP-6 HR from [id number]. INTER FACE SYSTEM CARDIAC Interim: CAR6 from [id number] S. Performing Organization Address City/[facility] Ph one Number INTERFACE SYSTEM INTERFACE SYSTEM Refer to clinic/hospital department * CARDIAC INTERPRETATION (3 HR) (04/30/2005 3:55 AM CDT) INTERPRETATION See comment. INTERFACE Comment: SYSTEM COMMENT - 04/30/05 1131 Borderline increased troponin-I is noted at 3 hours, suggesting possible acute myocardial ischemia or injury. Correlation with clinical history, EKG findings and remainder of the cardiac markers in this series is recommended. Linda Elise. Specimen Narrative Performed At CARDIAC NYLA-3HR NYLA-3 HR from [id number]. INTERFA CE SYSTEM CARDIAC TROP-3HR TROP-3 HR from [id number]. CARDIAC Interim: CAR3 from [id number] S. Performing Organization Address [facility] one Number INTERFACE SYSTEM INTERFACE SYSTEM Refer to clinic/hospital department * TROPONIN (04/30/2005 3:55 AM CDT) TROPONIN I 0.38 0 - 0.4 ng/ml INTERFACE SYSTEM Specimen Narrative Performed At CARDIAC NYLA-3HR NYLA-3 HR from [id number]. INTERFA CE SYSTEM CARDIAC TROP-3HR TROP-3 HR from [id number]. CARDIAC Interim: CAR3 from [id number] S. Performing Organization Address [facility] one Number INTERFACE SYSTEM INTERFACE SYSTEM Refer to clinic/hospital department * MYOGLOBIN (04/30/2005 3:55 AM CDT) MYOGLOBIN, 71 16 - 97 ng/ml INTERFACE PLASMA SYSTEM Specimen Narrative Performed At CARDIAC NYLA-3HR NYLA-3 HR from [id number]. INTERFA CE SYSTEM CARDIAC TROP-3HR TROP-3 HR from [id number]. CARDIAC Interim: CAR3 from [id number] S. Performing Organization Address [facility] one Number INTERFACE SYSTEM INTERFACE SYSTEM Refer to clinic/hospital department * CBC WITH MANUAL DIFFERENTIAL (04/30/2005 1:00 AM CDT) WBC 5.3 4.0 - 10.8 x10E3 INTERFACE SYSTEM RBC 4.17 (L) 4.7 - 6.1 x10E6 INTERFACE SYSTEM HEMOGLOBIN 12.1 (L) 14.0 - 18.0 g/dL INTERFACE SYSTEM HEMATOCRIT 35.3 (L) 42 - 52 % INTERFACE SYSTEM MCV 84.8 80.0 - 94.0 fL INTERFACE SYSTEM MCH 29.0 27 - 33 pg INTERFACE SYSTEM MCHC 34.2 32 - 35 g/dL INTERFACE SYSTEM RDW 15.7 12.7 - 16.5 % INTERFACE SYSTEM PLATELETS 276 130 - 400 x10E3 INTERFACE SYSTEM MPV 6.5 (L) 7.4 - 10.4 fL INTERFACE SYSTEM NEUTROPHILS 56.4 37.0 - 75.0 % INTERFACE SYSTEM MONOCYTES 7.9 0.0 - 12.0 % INTERFACE SYSTEM EOSINOPHILS 3.2 0.0 - 7.0 % INTERFACE SYSTEM BASOPHILS 1.2 0.0 - 2.5 % INTERFACE SYSTEM NEUTROPHIL 3.0 2.0 - 6.9 x10E3 INTERFACE ABSOLUTE SYSTEM MONOCYTE 0.4 0.0 - 0.9 x10E3 INTERFACE ABSOLUTE SYSTEM EOSINOPHIL 0.2 0.0 - 0.7 x10E3 INTERFACE ABSOLUTE SYSTEM BASOPHILS 0.1 0 - 0.2 x10E3 INTERFACE ABSOLUTE SYSTEM EOSINOPHILS 5 % INTERFACE SYSTEM NEUTROPHILS, 59 % INTERFACE SEG SYSTEM LYMPHOCYTES 33 % INTERFACE SYSTEM MONOCYTE 3 % INTERFACE SYSTEM PLATELET EST. Normal INTERFACE SYSTEM WBC ESTIMATE Normal INTERFACE SYSTEM Specimen Performing Organization Address [facility] one Number INTERFACE SYSTEM INTERFACE SYSTEM Refer to clinic/hospital department * PTT (04/30/2005 1:00 AM CDT) PTT 25 25 - 33 Sec INTERFACE SYSTEM Specimen Performing Organization Address [facility] one Number INTERFACE SYSTEM INTERFACE SYSTEM Refer to clinic/hospital department * PROTIME-INR (04/30/2005 1:00 AM CDT) PROTIME 11.9 (H) 9.3 - 11.3 Sec INTERFACE SYSTEM INR 1.18 (L) 2.0 - 3.0 INTERFACE SYSTEM Specimen Performing Organization Address [facility] one Number INTERFACE SYSTEM INTERFACE SYSTEM Refer to clinic/hospital department * PHENYTOIN LEVEL, TOTAL (04/30/2005 1:00 AM CDT) PHENYTOIN TOTAL 18.5 10 - 20 ug/ml INTERFACE SYSTEM Specimen Narrative Performed At Preop Test? N INTERFACE SYSTEM COMMENT: MAY RUN OFF BLOOD DRAWN IN ER Performing Organization Address [facility] one Number INTERFACE SYSTEM INTERFACE SYSTEM Refer to clinic/hospital department * TROPONIN (04/30/2005 1:00 AM CDT) TROPONIN I 0.04 0 - 0.4 ng/ml INTERFACE SYSTEM Specimen Narrative Performed At CARDIAC NYLA-0HR NYLA-0 HR from [id number]. INTERFA CE SYSTEM CARDIAC TROP-0HR TROP-0 HR from 23:[id number]. Performing Organization Address City/[facility] Ph one Number INTERFACE SYSTEM INTERFACE SYSTEM Refer to clinic/hospital department * MYOGLOBIN (04/30/2005 1:00 AM CDT) MYOGLOBIN, 53 16 - 97 ng/ml INTERFACE PLASMA SYSTEM Specimen Narrative Performed At CARDIAC NYLA-0HR NYLA-0 HR from [id number]. INTERFA CE SYSTEM CARDIAC TROP-0HR TROP-0 HR from [id number]. Performing Organization Address [facility] Ph one Number INTERFACE SYSTEM INTERFACE SYSTEM Refer to clinic/hospital department * MAGNESIUM LEVEL (04/30/2005 1:00 AM CDT) MAGNESIUM 1.5 (L) 1.8 - 2.4 mg/dl INTERFACE SYSTEM Specimen Narrative Performed At COMMENT: Stat on Admission, unless done in ER. INTER FACE SYSTEM Performing Organization Address [facility] Ph one Number INTERFACE SYSTEM INTERFACE SYSTEM Refer to clinic/hospital department * COMPREHENSIVE METABOLIC PANEL (04/30/2005 1:00 AM CDT) GLUCOSE 224 (H) 70 - 110 mg/dl INTERFACE SYSTEM BUN 24.0 (H) 7 - 20 mg/dl INTERFACE SYSTEM CREATININE 1.0 0.8 - 1.3 mg/dl INTERFACE SYSTEM BUN/CREAT RATIO 24.0 (H) 10 - 20 INTERFACE SYSTEM SODIUM 141 135 - 145 mmol/L INTERFACE SYSTEM POTASSIUM 4.1 3.5 - 5.1 mmol/L INTERFACE SYSTEM CHLORIDE 101 98 - 107 mmol/L INTERFACE SYSTEM CO2 25.9 22 - 31 mmol/L INTERFACE SYSTEM ANION GAP 18 4 - 20 INTERFACE SYSTEM CALCIUM 8.9 8.5 - 10.1 mg/dl INTERFACE SYSTEM ALBUMIN 4.4 3.4 - 5.0 g/dl INTERFACE SYSTEM TOTAL PROTEIN 6.8 6.4 - 8.2 g/dl INTERFACE SYSTEM GLOBULIN (CALC) 2.4 INTERFACE SYSTEM ALBUMIN/GLOBULI 1.8 INTERFACE N RATIO SYSTEM BILIRUBIN TOTAL 0.2 <1.1 mg/dl INTERFACE SYSTEM ALKALINE 56 50 - 136 IU/L INTERFACE PHOSPHATASE SYSTEM AST 34 10 - 40 IU/L INTERFACE SYSTEM ALT 36 25 - 70 IU/L INTERFACE SYSTEM Specimen Narrative Performed At COMMENT: Stat on Admission, unless done in ER. INTER FACE SYSTEM Performing Organization Address City/State/Zipcode Ph one Number INTERFACE SYSTEM INTERFACE SYSTEM Refer to clinic/hospital department documented in this encounter Visit Diagnoses Diagnosis Acute myocardial infarction, unspecifie d site, initial episode of care - Primary documented in this encounter
--- OUTSIDE RECORDS SUMMARY | 2020-03-24 14:53 | XMS REPORT | Encounter Summary ---
Author Author [facility] Organization [facility] Address Unknown Phone Unavailable Care Team Providers Care Metal Machine Setter Name Role Phone Shahram Mccallum MD PCP Unavailable Claus Couch MD PCP Encounter Details Care Team Description Date Type Department Shahram Mccallum MD NO ADDRESS ON FILE CORONARY ATHEROSCLER UNSPEC VESSEL (Prim rolando Dx) 08/10/2005 Outpatient [facility] [address] [facility] ICA [...] Priority Date/Time Associated Diag nosis AST Routine 08/10/2005 8:02 AM CDT HEMOGLOBIN A1C Routine 08/10/2005 8:02 AM CDT LIPID PANEL Routine 08/10/2005 8:02 AM CDT BASIC METABOLIC PANEL Routine 08/10/2005 8:02 AM CDT documented in this encounter Results * HEMOGLOBIN A1C (08/10/2005 8:02 AM CDT) HEMOGLOBIN A1C 5.7 0 - 6.0 % INTERFACE SYSTEM GLUCOSE, MEAN 115 mg/dl INTERFACE BLOOD SYSTEM Specimen Narrative Performed At 14 HR FAST INTERFACE SYSTEM Performing Organization Address City/State/Zipcode Ph one Number INTERFACE SYSTEM INTERFACE SYSTEM Refer to clinic/hospital department * AST (08/10/2005 8:02 AM CDT) AST 20 10 - 40 IU/L INTERFACE SYSTEM Specimen Narrative Performed At 14 HR FAST INTERFACE SYSTEM Performing Organization Address [facility] INTERFACE SYSTEM INTERFACE SYSTEM Refer to clinic/hospital department * LIPID PANEL (08/10/2005 8:02 AM CDT) CHOLESTEROL 268 (H) 140 - 200 mg/dl INTERFACE SYSTEM TRIGLYCERIDE 466 (H) 0 - 199 mg/dl INTERFACE Comment: SYSTEM REFERENCE RANGE - TRIGLYCERIDES NORMAL LESS THAN 150 mg/dl BORDERLINE HIGH 150 - 199 mg/dl HIGH 200 - 499 mg/dl VERY HIGH GREATER THAN OR = 500 mg/dl HDL 43 27 - 67 mg/dl INTERFACE SYSTEM LDL 146 (H) <130 mg/dl INTERFACE CHOLESTEROL, SYSTEM DIRECT Specimen Narrative Performed At 14 HR FAST INTERFACE SYSTEM Performing Organization Address [facility] INTERFACE SYSTEM INTERFACE SYSTEM Refer to clinic/hospital department * BASIC METABOLIC PANEL (08/10/2005 8:02 AM CDT) GLUCOSE 138 (H) 70 - 110 mg/dl INTERFACE SYSTEM BUN 17.0 7 - 20 mg/dl INTERFACE SYSTEM CREATININE 1.0 0.8 - 1.3 mg/dl INTERFACE SYSTEM BUN/CREAT RATIO 17.0 10 - 20 INTERFACE SYSTEM SODIUM 141 135 - 145 mmol/L INTERFACE SYSTEM POTASSIUM 4.1 3.5 - 5.1 mmol/L INTERFACE SYSTEM CHLORIDE 103 98 - 107 mmol/L INTERFACE SYSTEM CO2 26.1 22 - 31 mmol/L INTERFACE SYSTEM ANION GAP 16 4 - 20 INTERFACE SYSTEM CALCIUM 8.9 8.5 - 10.1 mg/dl INTERFACE SYSTEM Specimen Narrative Performed At 14 HR FAST INTERFACE SYSTEM Performing Organization Address [facility] INTERFACE SYSTEM INTERFACE SYSTEM Refer to clinic/hospital department documented in this encounter Visit Diagnoses Diagnosis Coronary atherosclerosis of unspecified type of vessel, mcgrath or graft - Primary documented in this encounter
--- OUTSIDE RECORDS SUMMARY | 2020-03-24 14:53 | XMS REPORT | Encounter Summary ---
Author Author [facility] Organization [facility] Address Unknown Phone Unavailable Care Team Providers Care Integrity Manager Name Role Phone Shahram Mccallum MD PCP Unavailable Claus Couch MD PCP Encounter Details Care Team Description Date Type Department Shahram Mccallum MD NO ADDRESS ON FILE SHLDR/UPPER ARM INJURY NOS (Primary Dx) [facility] [address] [id number] Social History Date Tobacco Use Types Packs/Day Years Used Never Assessed Sex Assigned at Date Recorded Not on file Industry Job Start Date Occupation Not on file Not on file Not on file Travel End Travel History Travel Start No recent travel history available. documented as of this encounter Plan of Treatment Not on filedocumented as of this encounter Visit Diagnoses Diagnosis Injury, other and unspecified, shoulder and upper arm - Primary documented in this encounter
--- OUTSIDE RECORDS SUMMARY | 2020-03-24 14:53 | XMS REPORT | Encounter Summary ---
Author Author [facility] Organization [facility] Address Unknown Phone Unavailable Care Team Providers Care Rail Detector Car Operator Name Role Phone Shahram Mccallum MD PCP Unavailable Claus Couch MD PCP Encounter Details Care Team Description Date Type Department Shahram Mccallum MD NO ADDRESS ON FILE CORONARY ATHEROSCLER UNSPEC VESSEL (Prim rolando Dx) 05/14/2005 Outpatient [facility] Consol idated Historical [facility] [address] [place] [address] Social History Date Tobacco Use Types Packs/Day [...] Coronary atherosclerosis of unspecified type of vessel, ak chin or graft - Primary documented in this encounter
--- OUTSIDE RECORDS SUMMARY | 2020-03-24 14:53 | XMS REPORT | Encounter Summary ---
Author Author [facility] Organization [facility] Address Unknown Phone Unavailable Care Team Providers Care Para Professional Name Role Phone Shahram Mccallum MD PCP Unavailable Claus Couch MD PCP Encounter Details Care Team Description Date Type Department Chikis Negrete, ICHTHYOLOGY TEACHER [address] [place] [address] CHEST PAIN NOS (Primary Dx) 03/27/2005 Outpatient [facility] Consol idated Historical [address] [address] Social History Date Tobacco Use Types Packs/Day [...]
--- OUTSIDE RECORDS SUMMARY | 2020-03-24 14:53 | XMS REPORT | Encounter Summary ---
Author Author [facility] Organization [facility] Address Unknown Phone Unavailable Care Team Providers Care Wheat Washer Name Role Phone Shahram Mccallum MD PCP Unavailable Claus Couch MD PCP Encounter Details Care Team Description Date Type Department Shahram Mccallum MD NO ADDRESS ON FILE DIABETES TYPE II W MANIF NEC (Primary Dx ) 07/07/2005 Outpatient [facility] Historical Social [...]
--- OUTSIDE RECORDS SUMMARY | 2020-03-24 14:53 | XMS REPORT | Encounter Summary ---
Author Author [facility] Organization [facility] Address Unknown Phone Unavailable Care Team Providers Care Wood Molder Name Role Phone Shahram Mccallum MD PCP Unavailable Claus Couch MD PCP Encounter Details Care Team Description Date Type Department Caden Chikisflorian Kemp, BUSINESS INTELLIGENCE ETL DEVELOPER [address] [place] [address] CHEST PAIN NOS (Primary Dx) 03/27/2005 Outpatient [facility] [address] [facility] Historical MEDICAID Social History Date Tobacco [...] Procedure Name Priority Date/Time Associated Diag nosis TROPONIN Routine 03/27/2005 12:09 PM CDT MYOGLOBIN Routine 03/27/2005 12:09 PM CDT documented in this encounter Results * MYOGLOBIN (03/27/2005 12:09 PM CDT) MYOGLOBIN, 34 16 - 97 ng/ml INTERFACE PLASMA SYSTEM Specimen Performing Organization Address [facility] Ph one Number INTERFACE SYSTEM INTERFACE SYSTEM Refer to clinic/hospital department * TROPONIN (03/27/2005 12:09 PM CDT) TROPONIN I LESS THAN 0.04 0 - 0.4 ng/ml INTERFACE SYSTEM Specimen Performing Organization Address [facility]/State/Zipcode Ph one Number INTERFACE SYSTEM INTERFACE SYSTEM Refer to clinic/hospital department documented in this encounter Visit Diagnoses Diagnosis Chest pain, unspecified - Primary documented in this encounter
--- OUTSIDE RECORDS SUMMARY | 2020-03-24 14:53 | XMS REPORT | Encounter Summary ---
Author Author [facility] Organization [facility] Address Unknown Phone Unavailable Care Team Providers Care Community Outreach Advocate Name Role Phone Shahram Mccallum MD PCP Unavailable Claus Couch MD PCP Encounter Details Care Team Description Date Type Department Shahram Mccallum MD NO ADDRESS ON FILE Routine medical exam (Primary Dx) 04/30/2005 Outpatient [facility] Consol idated Historical [facility] [address] [place] [address] Social History Date Tobacco Use Types Packs/Day [...]
--- OUTSIDE RECORDS SUMMARY | 2020-03-24 14:53 | XMS REPORT | Encounter Summary ---
Author Author [facility] Organization [facility] Address Unknown Phone Unavailable Care Team Providers Care Tobacco Farmworker Name Role Phone Shahram Mccallum MD PCP Unavailable Claus Couch MD PCP Encounter Details Care Team Description Date Type Department Chikis Negrete, CLIENT SERVICES VICE PRESIDENT [address] [place] [address] BRONCHITIS NOS (Primary Dx) 03/10/2005 Outpatient [facility] Consol idated Historical [address] [address] Social History Date Tobacco Use Types Packs/Day Years Used Never Assessed Sex Assigned at Date Recorded Not on file Industry Job Start Date Occupation Not on file Not on file Not on file Travel End Travel History Travel Start No recent travel history available. documented as of this encounter Plan of Treatment Not on filedocumented as of this encounter Visit Diagnoses Diagnosis Bronchitis, not specified as acute or c hronic - Primary documented in this encounter
--- OUTSIDE RECORDS SUMMARY | 2020-03-24 14:53 | XMS REPORT | Encounter Summary ---
Author Author [facility] Organization [facility] Address Unknown Phone Unavailable Care Team Providers Care Senior Engineering Tech Name Role Phone Shahram Mccallum MD PCP Unavailable Claus Couch MD PCP Encounter Details Care Team Description Date Type Department Shahram Mccallum MD NO ADDRESS ON FILE Pain in limb (Primary Dx) 01/23/[facility] [address] [address] Social History Date Tobacco Use [...]
--- OUTSIDE RECORDS SUMMARY | 2020-03-24 14:53 | XMS REPORT | Encounter Summary ---
Author Author [facility] Organization [facility] Address Unknown Phone Unavailable Care Team Providers Care Title Agent Name Role Phone Shahram Mccallum MD PCP Unavailable Claus Couch MD PCP Encounter Details Care Team Description Date Type Department Shahram Mccallum MD NO ADDRESS ON FILE Hyperlipidemia NEC/NOS (Primary Dx) 12/22/2004 Outpatient [facility] [address] [facility] ICA [...] Priority Date/Time Associated Diag nosis AST Routine 12/22/2004 8:15 AM CATTLE BROKER HEMOGLOBIN A1C Routine 12/22/2004 8:15 AM CATTLE BROKER BASIC METABOLIC PANEL Routine 12/22/2004 8:15 AM CATTLE BROKER documented in this encounter Results * HEMOGLOBIN A1C (12/22/2004 8:15 AM CATTLE BROKER) HEMOGLOBIN A1C 6.0 0 - 6.0 % INTERFACE SYSTEM GLUCOSE, MEAN 124 mg/dl INTERFACE BLOOD SYSTEM Specimen Narrative Performed At 14 HR FAST INTERFACE SYSTEM Performing Organization Address City[facility] Ph one Number INTERFACE SYSTEM INTERFACE SYSTEM Refer to clinic/hospital department * AST (12/22/2004 8:15 AM CATTLE BROKER) AST 23 10 - 40 IU/L INTERFACE SYSTEM Specimen Narrative Performed At 14 HR FAST INTERFACE SYSTEM Performing Organization Address City/[facility] Ph one Number INTERFACE SYSTEM INTERFACE SYSTEM Refer to clinic/hospital department * BASIC METABOLIC PANEL (12/22/2004 8:15 AM CATTLE BROKER) GLUCOSE 149 (H) 70 - 110 mg/dl INTERFACE SYSTEM BUN 19.0 7 - 20 mg/dl INTERFACE SYSTEM CREATININE 1.1 0.8 - 1.3 mg/dl INTERFACE SYSTEM BUN/CREAT RATIO 17.3 12 - 25 INTERFACE SYSTEM SODIUM 138 135 - 145 mmol/L INTERFACE SYSTEM POTASSIUM 4.0 3.5 - 5.1 mmol/L INTERFACE SYSTEM CHLORIDE 102 98 - 107 mmol/L INTERFACE SYSTEM CO2 26.4 22 - 31 mmol/L INTERFACE SYSTEM ANION GAP 14 4 - 20 INTERFACE SYSTEM CALCIUM 9.1 8.5 - 10.1 mg/dl INTERFACE SYSTEM Specimen Narrative Performed At 14 HR FAST INTERFACE SYSTEM Performing Organization Address [facility] Ph one Number INTERFACE SYSTEM INTERFACE SYSTEM Refer to clinic/hospital department documented in this encounter Visit Diagnoses Diagnosis Hyperlipidemia NEC/NOS - Primary Other and unspecified hyperlipidemia documented in this encounter
--- OUTSIDE RECORDS SUMMARY | 2020-03-24 14:53 | XMS REPORT | Encounter Summary ---
Author Author [facility] Organization [facility] Address Unknown Phone Unavailable Care Team Providers Care Silica Mixer Operator Name Role Phone Shahram Mccallum MD PCP Unavailable Claus Couch MD PCP Encounter Details Care Team Description Date Type Department Shahram Mccallum MD NO ADDRESS ON FILE Fx metacarpal NOS-closed (Primary Dx) 01/02/[facility] [address] Social History Date Tobacco Use [...]
--- OUTSIDE RECORDS SUMMARY | 2020-03-24 14:53 | XMS REPORT | Encounter Summary ---
Author Author [facility] Organization [facility] Address Unknown Phone Unavailable Care Team Providers Care Stone And Concrete Washer Name Role Phone Shahram Mccallum MD PCP Unavailable Claus Couch MD PCP Encounter Details Care Team Description Date Type Department [place] Oconnor [place] [address] [facility] [address] [place] [address] No proc for reasons NEC (Primary Dx) 08/03/2005 Outpatient [facility] [address] [address] Social History Date Tobacco Use [...]
--- OUTSIDE RECORDS SUMMARY | 2020-03-24 14:53 | XMS REPORT | Encounter Summary ---
Author Author [facility] Organization [facility] Address Unknown Phone Unavailable Care Team Providers Care Microelectronics Engineer Name Role Phone Shahram Mccallum MD PCP Unavailable Claus Couch MD PCP Encounter Details Care Team Description Date Type Department Shahram Mccallum MD NO ADDRESS ON FILE DIABETES MELLITUS TYPE I-UNCOMPL (Primar y Dx) 12/19/[address] [facility] Consol idated Historical [address] [address] Social History Date Tobacco Use Types Packs/Day [...]
--- OUTSIDE RECORDS SUMMARY | 2020-03-24 14:53 | XMS REPORT | Encounter Summary ---
Author Author [facility] Organization [facility] Address Unknown Phone Unavailable Care Team Providers Care Fishing Lure Assembler Name Role Phone Shahram Mccallum MD PCP Unavailable Claus Couch MD PCP Encounter Details Care Team Description Date Type Department Shahram Mccallum MD NO ADDRESS ON FILE Pure hypercholesterolem (Primary Dx) 04/21/2005 Outpatient [facility] [address] ICARE [...] Priority Date/Time Associated Diag nosis AST Routine 04/21/2005 8:15 AM CDT HEMOGLOBIN A1C Routine 04/21/2005 8:15 AM CDT LIPID PANEL Routine 04/21/2005 8:15 AM CDT BASIC METABOLIC PANEL Routine 04/21/2005 8:15 AM CDT documented in this encounter Results * HEMOGLOBIN A1C (04/21/2005 8:15 AM CDT) HEMOGLOBIN A1C 6.3 (H) 0 - 6.0 % INTERFACE SYSTEM GLUCOSE, MEAN 134 mg/dl INTERFACE BLOOD SYSTEM Specimen Narrative Performed At 14 HR FAST INTERFACE SYSTEM Performing Organization Address City/State/Zipcode Ph one Number INTERFACE SYSTEM INTERFACE SYSTEM Refer to clinic/hospital department * AST (04/21/2005 8:15 AM CDT) AST 27 10 - 40 IU/L INTERFACE SYSTEM Specimen Narrative Performed At 14 HR FAST INTERFACE SYSTEM Performing Organization Address [facility] one [facility] INTERFACE SYSTEM INTERFACE SYSTEM Refer to clinic/hospital department * LIPID PANEL (04/21/2005 8:15 AM CDT) CHOLESTEROL 275 (H) 140 - 200 mg/dl INTERFACE SYSTEM TRIGLYCERIDE 545 (H) 0 - 199 mg/dl INTERFACE Comment: SYSTEM REFERENCE RANGE - TRIGLYCERIDES NORMAL LESS THAN 150 mg/dl BORDERLINE HIGH 150 - 199 mg/dl HIGH 200 - 499 mg/dl VERY HIGH GREATER THAN OR = 500 mg/dl HDL 32 27 - 67 mg/dl INTERFACE SYSTEM LDL 154 (H) <130 mg/dl INTERFACE CHOLESTEROL, SYSTEM DIRECT Specimen Narrative Performed At 14 HR FAST INTERFACE SYSTEM Performing Organization Address [facility] INTERFACE SYSTEM INTERFACE SYSTEM Refer to clinic/hospital department * BASIC METABOLIC PANEL (04/21/2005 8:15 AM CDT) GLUCOSE 141 (H) 70 - 110 mg/dl INTERFACE SYSTEM BUN 21.0 (H) 7 - 20 mg/dl INTERFACE SYSTEM CREATININE 1.0 0.8 - 1.3 mg/dl INTERFACE SYSTEM BUN/CREAT RATIO 21.0 (H) 10 - 20 INTERFACE SYSTEM SODIUM 138 135 - 145 mmol/L INTERFACE SYSTEM POTASSIUM 4.8 3.5 - 5.1 mmol/L INTERFACE SYSTEM CHLORIDE 100 98 - 107 mmol/L INTERFACE SYSTEM CO2 28.9 22 - 31 mmol/L INTERFACE SYSTEM ANION GAP 14 4 - 20 INTERFACE SYSTEM CALCIUM 9.0 8.5 - 10.1 mg/dl INTERFACE SYSTEM Specimen Narrative Performed At 14 HR FAST INTERFACE SYSTEM Performing Organization Address [facility] one [facility] INTERFACE SYSTEM INTERFACE SYSTEM Refer to clinic/hospital department documented in this encounter Visit Diagnoses Diagnosis Pure hypercholesterolem - Primary Pure hypercholesterolemia documented in this encounter
--- OUTSIDE RECORDS SUMMARY | 2020-03-24 14:53 | XMS REPORT | Encounter Summary ---
Author Author [facility] Organization [facility] Address Unknown Phone Unavailable Care Team Providers Care Mechanical System Technician Name Role Phone Shahram Mccallum MD PCP Unavailable Claus Couch MD PCP Encounter Details Care Team Description Date Type Department Shahram Mccallum MD NO ADDRESS ON FILE Fx metacarpal NOS-closed (Primary Dx) 12/26/[address] [facility] Consol idated Historical [address] [address] Social History Date Tobacco Use Types Packs/Day [...]
--- OUTSIDE RECORDS SUMMARY | 2020-03-24 14:54 | XMS REPORT | Encounter Summary ---
Author Author [facility] Organization [facility] Address Unknown Phone Unavailable Care Team Providers Care Sports Teacher Name Role Phone Shahram Mccallum MD PCP Unavailable Claus Couch MD PCP Encounter Details Care Team Description Date Type Department Shahram Mccallum MD NO ADDRESS ON FILE SHORTNESS OF BREATH (Primary Dx) 01/15/2004 Outpatient [facility] [address] [place] [address] Social History Date Tobacco Use [...] as of this encounter Visit Diagnoses Diagnosis Shortness of breath - Primary documented in this encounter
--- OUTSIDE RECORDS SUMMARY | 2020-03-24 14:54 | XMS REPORT | Encounter Summary ---
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
--- OUTSIDE RECORDS SUMMARY | 2020-03-24 14:54 | XMS REPORT | Encounter Summary ---
Author Author [facility] Organization [facility] Address Unknown Phone Unavailable Care Team Providers Care Dye Tank Tender Name Role Phone Shahram Mccallum MD PCP Unavailable Claus Couch MD PCP Encounter Details Care Team Description Date Type Department Shahram Mccallum MD NO ADDRESS ON FILE DIABETES UNCOMPL CHARLES-TYPE I (Primary D x) 02/13/2004 Outpatient HIS [facility] [address] [facility] Historical MEDICAID Social History Date [...]
--- OUTSIDE RECORDS SUMMARY | 2020-03-24 14:54 | XMS REPORT | Encounter Summary ---
Author Author [facility] Organization [facility] Address Unknown Phone Unavailable Care Team Providers Care Housing Relocation Name Role Phone Shahram Mccallum MD PCP Unavailable Claus Couch MD PCP Encounter Details Care Team Description Date Type Department Shahram Mccallum MD NO ADDRESS ON FILE DIABETES UNCOMPL CHARLES-TYPE I (Primary D x) 03/06/2004 Outpatient [facility] Consol idated Historical [address] [address] Social History Date Tobacco Use Types Packs/Day [...]
--- OUTSIDE RECORDS SUMMARY | 2020-03-24 14:54 | XMS REPORT | Encounter Summary ---
Author Author [facility] Organization [facility] Address Unknown Phone Unavailable Care Team Providers Care Carbon Sequestration Plant Manager Name Role Phone Shahram Mccallum MD PCP Unavailable Claus Couch MD PCP Encounter Details Care Team Description Date Type Department Bahman Roberts, DO [address] [place] [address] Joint pain-forearm (Primary Dx) 08/31/[address] [facility] Consol idated Historical [address] [address] Social History Date Tobacco Use Types Packs/Day Years Used Never Assessed Sex Assigned at Date Recorded Not on file Industry Job Start Date Occupation Not on file Not on file Not on file Travel End Travel History Travel Start No recent travel history available. documented as of this encounter Plan of Treatment Not on filedocumented as of this encounter Visit Diagnoses Diagnosis Joint pain-forearm - Primary Pain in joint, forearm documented in this encounter
--- OUTSIDE RECORDS SUMMARY | 2020-03-24 14:54 | XMS REPORT | Encounter Summary ---
Author Author [facility] Organization [facility] Address Unknown Phone Unavailable Care Team Providers Care Oncology Rn Name Role Phone Shahram Mccallum MD PCP Unavailable Claus Couch MD PCP Encounter Details Care Team Description Date Type Department Jaime III, Oliverio Magdaleno MD [address] [place] [address] HEMATURIA (Primary Dx) 07/31/2004 Outpatient [facility] Laboratory Services [address] [address] Social History Date Tobacco [...]
--- OUTSIDE RECORDS SUMMARY | 2020-03-24 14:54 | XMS REPORT | Encounter Summary ---
Author Author [facility] Organization [facility] Address Unknown Phone Unavailable Care Team Providers Care Accounting Bookkeeper Name Role Phone Shahram Mccallum MD PCP Unavailable Claus Couch MD PCP Encounter Details Care Team Description Date Type Department Shahram Mccallum MD NO ADDRESS ON FILE Postsurgical states NEC (Primary Dx) 09/06/2003 Outpatient [facility] Consol idated Historical [facility] [address] [place] [address] Social History Date Tobacco Use Types Packs/Day [...]
--- OUTSIDE RECORDS SUMMARY | 2020-03-24 14:54 | XMS REPORT | Encounter Summary ---
Author Author [facility] Address Unknown Phone Unavailable Care Team Providers Care Boring Mill Set Up Operator Name Role Phone Shahram Mccallum MD PCP Unavailable Claus Couch MD PCP Encounter Details Care Team Description Date Type Department Shahram Mccallum MD NO ADDRESS ON FILE Hyperlipidemia NEC/NOS (Primary Dx) 11/15/2003 Outpatient [facility] [address] [facility] Historical MEDICAID Social History Date Tobacco [...] as of this encounter Visit Diagnoses Diagnosis Hyperlipidemia NEC/NOS - Primary Other and unspecified hyperlipidemia documented in this encounter
--- OUTSIDE RECORDS SUMMARY | 2020-03-24 14:54 | XMS REPORT | Encounter Summary ---
Author Author [facility] Organization [facility] Address Unknown Phone Unavailable Care Team Providers Care Software Tester Name Role Phone Shahram Mccallum MD PCP Unavailable Claus Couch MD PCP Encounter Details Care Team Description Date Type Department Walter Oconnor MD [address] [facility] [address] [place] [address] No proc for reasons NEC (Primary Dx) 04/21/2004 Outpatient [facility] Laboratory Services [address] [address] Social History Date Tobacco [...]
--- OUTSIDE RECORDS SUMMARY | 2020-03-24 14:54 | XMS REPORT | Encounter Summary ---
Author Author [facility] Organization [facility] Address Unknown Phone Unavailable Care Team Providers Care Kraft Digester Operator Name Role Phone Shahram Mccallum MD PCP Unavailable Claus Couch MD PCP Encounter Details Care Team Description Date Type Department Shahram Mccallum MD NO ADDRESS ON FILE POLYMYALGIA RHEUMATICA (Primary Dx) 12/19/2003 Outpatient [facility] [address] [facility] Historical MEDICAID Social History Date Tobacco Use [...] as of this encounter Visit Diagnoses Diagnosis Polymyalgia rheumatica - Primary documented in this encounter
--- OUTSIDE RECORDS SUMMARY | 2020-03-24 14:54 | XMS REPORT | Encounter Summary ---
Author Author [facility] Organization [facility] Address Unknown Phone Unavailable Care Team Providers Care Straw Baler Name Role Phone Shahram Mccallum MD PCP Unavailable Claus Couch MD PCP Encounter Details Care Team Description Date Type Department Shahram Mccallum MD NO ADDRESS ON FILE Dermatitis NOS (Primary Dx) 07/08/2004 Outpatient [facility] Consol idated Historical [address] [address] Social History Date Tobacco Use Types Packs/Day Years Used Never Assessed Sex Assigned at Date Recorded Not on file Industry Job Start Date Occupation Not on file Not on file Not on file Travel End Travel History Travel Start No recent travel history available. documented as of this encounter Plan of Treatment Not on filedocumented as of this encounter Visit Diagnoses Diagnosis Dermatitis NOS - Primary Contact dermatitis and other eczema, du e to unspecified cause documented in this encounter
--- OUTSIDE RECORDS SUMMARY | 2020-03-24 14:54 | XMS REPORT | Encounter Summary ---
Author Author [facility] Organization [facility] Address Unknown Phone Unavailable Care Team Providers Care Historical Archeologist Name Role Phone Shahram cMcallum MD PCP Unavailable Claus Couch MD PCP Encounter Details Care Team Description Date Type Department Shahram Mccallum MD NO ADDRESS ON FILE POLYMYALGIA RHEUMATICA (Primary Dx) 01/04/2004 Outpatient [facility] [address] [facility] MEDICAID Social History Date Tobacco [...]
--- OUTSIDE RECORDS SUMMARY | 2020-03-24 14:54 | XMS REPORT | Encounter Summary ---
Author Author [facility] Organization [facility] Address Unknown Phone Unavailable Care Team Providers Care Circus Rider Name Role Phone Shahram Mccallum MD PCP Unavailable Claus Couch MD PCP Encounter Details Care Team Description Date Type Department Shahram Mccallum MD NO ADDRESS ON FILE DIABETES UNCOMPL CHARLES-TYPE I (Primary D x) 04/24/2004 Outpatient HIS [facility] [address] [facility] Historical MEDICAID Social History Date Tobacco [...]
--- OUTSIDE RECORDS SUMMARY | 2020-03-24 14:54 | XMS REPORT | Encounter Summary ---
Author Author [facility] Organization [facility] Address Unknown Phone Unavailable Care Team Providers Care Psychiatric Rn Name Role Phone Shahram Mccallum MD PCP Unavailable Claus Couch MD PCP Encounter Details Care Team Description Date Type Department Shahram Mccallum MD NO ADDRESS ON FILE VIRAL ENTERITIS NOS (Primary Dx) 01/10/2004 Inpatient [facility] ICU [address] [place] [address] Social History Date Tobacco Use [...] as of this encounter Visit Diagnoses Diagnosis Intestinal infection due to other organ ism, not elsewhere classified - Primary documented in this encounter
--- OUTSIDE RECORDS SUMMARY | 2020-03-24 14:54 | XMS REPORT | Encounter Summary ---
Author Author [facility] Organization [facility] Address Unknown Phone Unavailable Care Team Providers Care Oiler Bander Name Role Phone Shahram Mccallum MD PCP Unavailable Claus Couch MD PCP Encounter Details Care Team Description Date Type Department Shahram Mccallum MD NO ADDRESS ON FILE ACUTE URI NOS (Primary Dx) 04/14/2004 Outpatient [facility] Consol idated Historical [facility] [address] [place] [address] Social History Date Tobacco Use Types Packs/Day Years Used Never Assessed Sex Assigned at Date Recorded Not on file Industry Job Start Date Occupation Not on file Not on file Not on file Travel End Travel History Travel Start No recent travel history available. documented as of this encounter Plan of Treatment Not on filedocumented as of this encounter Visit Diagnoses Diagnosis Acute upper respiratory infections of u nspecified site - Primary documented in this encounter
--- OUTSIDE RECORDS SUMMARY | 2020-03-24 14:54 | XMS REPORT | Encounter Summary ---
Author Author [facility] Organization [facility] Address Unknown Phone Unavailable Care Team Providers Care Geometry Professor Name Role Phone Shahram Mccallum MD PCP Unavailable Claus Couch MD PCP Encounter Details Care Team Description Date Type Department Shahram Mccallum MD NO ADDRESS ON FILE Elevated sediment rate (Primary Dx) 10/11/2003 Outpatient [facility] [address] [facility] Historical MEDICAID Social History Date Tobacco [...] as of this encounter Visit Diagnoses Diagnosis Elevated sediment rate - Primary Elevated sedimentation rate documented in this encounter
--- OUTSIDE RECORDS SUMMARY | 2020-03-24 14:54 | XMS REPORT | Encounter Summary ---
Author Author [facility] Organization [facility] Address Unknown Phone Unavailable Care Team Providers Care Supervisor Filling And Packing Name Role Phone Shahram Mccallum MD PCP Unavailable Claus Couch MD PCP Encounter Details Care Team Description Date Type Department Shahram Mccallum MD NO ADDRESS ON FILE DIABETES UNCOMPL CHARLES-TYPE I (Primary D x) 11/19/2003 Outpatient [facility] Consol idated Historical [address] [address] Social History Date Tobacco Use Types Packs/Day [...]
--- OUTSIDE RECORDS SUMMARY | 2020-03-24 14:54 | XMS REPORT | Encounter Summary ---
Author Author [facility] Organization [facility] Address Unknown Phone Unavailable Care Team Providers Care Intermission Coordinator Name Role Phone Shahram Mccallum MD PCP Unavailable Claus Couch MD PCP Encounter Details Care Team Description Date Type Department Jada Fernandez MD NO ADDRESS ON FILE SYNCOPE AND COLLAPSE (Primary Dx) 03/19/2004 Emergency [facility] Emergency Department [address] [address] Social History Date Tobacco Use [...] as of this encounter Visit Diagnoses Diagnosis Syncope and collapse - Primary documented in this encounter
--- OUTSIDE RECORDS SUMMARY | 2020-03-24 14:54 | XMS REPORT | Encounter Summary ---
Author Author [facility] Organization [facility] Address Unknown Phone Unavailable Care Team Providers Care Controlled Atmospheric Furnace Brazer Name Role Phone Shahram Mccallum MD PCP Unavailable Claus Couch MD PCP Encounter Details Care Team Description Date Type Department Walter Oconnor MD [address] [facility] [address] [place] [address] No proc for reasons NEC (Primary Dx) 09/17/2003 Outpatient [facility] Laboratory Services [address] [address] Social History Date Tobacco Use [...]
--- OUTSIDE RECORDS SUMMARY | 2020-03-24 14:54 | XMS REPORT | Encounter Summary ---
Author Author [facility] Organization [facility] Address Unknown Phone Unavailable Care Team Providers Care Director Telehealth Name Role Phone Shahram Mccallum MD PCP Unavailable Claus Couch MD PCP Encounter Details Care Team Description Date Type Department Shahram Mccallum MD NO ADDRESS ON FILE DIABETES UNCOMPL CHARLES-TYPE I (Primary D x) 04/24/2004 Outpatient [facility] Consol idated Historical [address] [address] Social History Date Tobacco Use Types Packs/Day [...]
--- OUTSIDE RECORDS SUMMARY | 2020-03-24 14:54 | XMS REPORT | Encounter Summary ---
Author Author [facility] Organization [facility] Address Unknown Phone Unavailable Care Team Providers Care Historic Site Administrator Name Role Phone Shahram Mccallum MD PCP Unavailable Claus Couch MD PCP Encounter Details Care Team Description Date Type Department Walter Oconnor MD [address] [facility] [address] [place] [address] CORONARY ATHEROSCLER UNSPEC VESSEL (Prim rolando Dx) 09/07/2003 Outpatient [facility] Historical [facility] [address] [place] [address] Social History Date Tobacco Use [...] Coronary atherosclerosis of unspecified type of vessel, diomede or graft - Primary documented in this encounter
--- OUTSIDE RECORDS SUMMARY | 2020-03-24 14:54 | XMS REPORT | Encounter Summary ---
Author Author [facility] Organization [facility] Address Unknown Phone Unavailable Care Team Providers Care Nailing Machine Feeder Name Role Phone Shahram Mccallum MD PCP Unavailable Claus Couch MD PCP Encounter Details Care Team Description Date Type Department Shahram Mccallum MD NO ADDRESS ON FILE OTHER GENERAL SYMPTOMS (Primary Dx) 12/29/2003 Outpatient [facility] Consol idated Historical [facility] [address] [place] [address] Social History Date Tobacco Use Types Packs/Day Years Used Never Assessed Sex Assigned at Date Recorded Not on file Industry Job Start Date Occupation Not on file Not on file Not on file Travel End Travel History Travel Start No recent travel history available. documented as of this encounter Plan of Treatment Not on filedocumented as of this encounter Visit Diagnoses Diagnosis Other general symptoms(780.99) - Primar y Other general symptoms documented in this encounter
--- OUTSIDE RECORDS SUMMARY | 2020-03-24 14:54 | XMS REPORT | Encounter Summary ---
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
--- OUTSIDE RECORDS SUMMARY | 2020-03-24 14:54 | XMS REPORT | Encounter Summary ---
Author Author [facility] Organization [facility] Address Unknown Phone Unavailable Care Team Providers Care Aerial Tram Operator Name Role Phone Shahram Mccallum MD PCP Unavailable Claus Couch MD PCP Encounter Details Care Team Description Date Type Department Shahram Mccallum MD NO ADDRESS ON FILE HEMATURIA (Primary Dx) 05/30/2004 [facility] Historical [address] [address] Social History Date Tobacco Use [...]
--- OUTSIDE RECORDS SUMMARY | 2020-03-24 14:54 | XMS REPORT | Encounter Summary ---
Author Author [facility] Organization [facility] Address Unknown Phone Unavailable Care Team Providers Care Electrical Technician Instructor Name Role Phone Shahram Mccallum MD PCP Unavailable Claus Couch MD PCP Encounter Details Care Team Description Date Type Department Bahman Roberts, DO [address] [place] [address] ELB/FOREARM/WRST INJURY NOS (Primary Dx) 09/26/2003 Outpatient HIS [facility] XRAY LAB Historical Social History Date Tobacco Use Types [...] Visit Diagnoses Diagnosis Injury, other and unspecified, elbow, f orearm, and wrist - Primary documented in this encounter
--- OUTSIDE RECORDS SUMMARY | 2020-03-24 14:54 | XMS REPORT | Encounter Summary ---
Author Author [facility] Organization [facility] Address Unknown Phone Unavailable Care Team Providers Care Kennel Staff Member Name Role Phone Shahram Mccallum MD PCP Unavailable Claus Couch MD PCP Encounter Details Care Team Description Date Type Department Shahram Mccallum MD NO ADDRESS ON FILE Pain in limb (Primary Dx) 01/31/2004 Outpatient [facility] [address] [facility] Historical MEDICAID Social History Date [...]
--- OUTSIDE RECORDS SUMMARY | 2020-03-24 14:54 | XMS REPORT | Encounter Summary ---
Author Author [facility] Organization [facility] Address Unknown Phone Unavailable Care Team Providers Care Guest Experience Representative Name Role Phone Shahram Mccallum MD PCP Unavailable Claus Couch MD PCP Encounter Details Care Team Description Date Type Department Shahram Mccallum MD NO ADDRESS ON FILE CORONARY ATHEROSCLER UNSPEC VESSEL (Prim rolando Dx) 08/08/2004 Inpatient [facility] ICU [address] [place] [address] Social History Date Tobacco Use [...] Coronary atherosclerosis of unspecified type of vessel, ely shoshone or graft - Primary documented in this encounter
--- OUTSIDE RECORDS SUMMARY | 2020-03-24 14:54 | XMS REPORT | Encounter Summary ---
Author Author [facility] Organization [facility] Address Unknown Phone Unavailable Care Team Providers Care Assistant Professor Of Dietetics Name Role Phone Shahram Mccallum MD PCP Unavailable Claus Couch MD PCP Encounter Details Care Team Description Date Type Department Shaharm Mccallum MD NO ADDRESS ON FILE Pain in limb (Primary Dx) 10/25/2003 Outpatient [facility] [address] [facility] Historical MEDICAID Social History Date [...]
--- OUTSIDE RECORDS SUMMARY | 2020-03-24 14:54 | XMS REPORT | Encounter Summary ---
Author Author [facility] Organization [facility] Address Unknown Phone Unavailable Care Team Providers Care President + Publisher Name Role Phone Shahram Mccallum MD PCP Unavailable Claus Couch MD PCP Encounter Details Care Team Description Date Type Department Walter Oconnor MD [address] [facility] [address] [place] [address] [facility] USE MEDICATN (Primar y Dx) 05/29/2004 Outpatient [facility] [address] [facility] ICARE [...] as of this encounter Visit Diagnoses Diagnosis Encounter for long-term (current) use o f other medications - Primary documented in this encounter
--- OUTSIDE RECORDS SUMMARY | 2020-03-24 14:54 | XMS REPORT | Encounter Summary ---
Author Author [facility] Organization [facility] Address Unknown Phone Unavailable Care Team Providers Care Practice Administrator Name Role Phone Shahram Mccallum MD PCP Unavailable Claus Couch MD PCP Encounter Details Care Team Description Date Type Department Bahman Roberts, DO [address] [place] [address] SPRAIN OF WRIST NOS (Primary Dx) 09/26/2003 Outpatient [facility] Consol idated Historical [facility] [address] [place] [address] Social History Date Tobacco Use Types Packs/Day Years Used Never Assessed Sex Assigned at Date Recorded Not on file Industry Job Start Date Occupation Not on file Not on file Not on file Travel End Travel History Travel Start No recent travel history available. documented as of this encounter Plan of Treatment Not on filedocumented as of this encounter Visit Diagnoses Diagnosis Sprain of wrist, unspecified site - Farhana matta documented in this encounter
--- OUTSIDE RECORDS SUMMARY | 2020-03-24 14:54 | XMS REPORT | Encounter Summary ---
Author Author [facility] Organization [facility] Address Unknown Phone Unavailable Care Team Providers Care Financial Reporting Accountant Name Role Phone Shahram Mccallum MD PCP Unavailable Claus Couch MD PCP Encounter Details Care Team Description Date Type Department Shahram Mccallum MD NO ADDRESS ON FILE DIABETES MELLITUS TYPE I-UNCOMPL (Primar y Dx) 09/02/2004 Outpatient [facility] Consol idated Historical [address] [address] Social History Date Tobacco Use Types Packs/Day [...]
--- OUTSIDE RECORDS SUMMARY | 2020-03-24 14:54 | XMS REPORT | Encounter Summary ---
Author Author [facility] Organization [facility] Address Unknown Phone Unavailable Care Team Providers Care Canteen Manager Name Role Phone Shahram Mccallum MD PCP Unavailable Claus Couch MD PCP Encounter Details Care Team Description Date Type Department Shahram Mccallum MD NO ADDRESS ON FILE POLYMYALGIA RHEUMATICA (Primary Dx) 12/04/2003 Outpatient [facility] [address] [facility] Historical MEDICAID Social History Date Tobacco [...]
--- OUTSIDE RECORDS SUMMARY | 2020-03-24 14:54 | XMS REPORT | Encounter Summary ---
Author Author [facility] Organization [facility] Address Unknown Phone Unavailable Care Team Providers Care Search Engine Optimization Manager Name Role Phone Shahram Mccallum MD PCP Unavailable Claus Couch MD PCP Encounter Details Care Team Description Date Type Department Shahram Mccallum MD NO ADDRESS ON FILE HEMATURIA (Primary Dx) 05/29/2004 Outpatient [facility] Consol idated Historical [facility] [address] [place] [address] Social History Date Tobacco Use Types Packs/Day [...]
--- OUTSIDE RECORDS SUMMARY | 2020-03-24 14:54 | XMS REPORT | Encounter Summary ---
Author Author [facility] Organization [facility] Address Unknown Phone Unavailable Care Team Providers Care Dental Billing Specialist Name Role Phone Shahram Mccallum MD PCP Unavailable Claus Couch MD PCP Encounter Details Care Team Description Date Type Department Shahram Mccallum MD NO ADDRESS ON FILE DIABETES MELLITUS TYPE I-UNCOMPL (Primar y Dx) 09/02/2004 Outpatient [facility] [address] [facility] Historical MEDICAID Social History Date Tobacco Use [...]
--- OUTSIDE RECORDS SUMMARY | 2020-03-24 14:55 | XMS REPORT | Encounter Summary ---
Author Author [facility] Organization [facility] Address Unknown Phone Unavailable Care Team Providers Care Nuclear Engineering Technician Name Role Phone Shahram Mccallum MD PCP Unavailable Claus Couch MD PCP Encounter Details Care Team Description Date Type Department Shahram Mccallum MD NO ADDRESS ON FILE 07/31/2003 Outpatient [facility] Laboratory Services [address] [address] Social History Date Tobacco Use [...]
--- OUTSIDE RECORDS SUMMARY | 2020-03-24 14:55 | XMS REPORT | Encounter Summary ---
Author Author [facility] Organization [facility] Address Unknown Phone Unavailable Care Team Providers Care Shoe Stamper Name Role Phone Shahram Mccallum MD PCP Unavailable Claus Couch MD PCP Encounter Details Care Team Description Date Type Department Jada Fernandez MD NO ADDRESS ON FILE ROTATOR CUFF SYND NOS (Primary Dx) 05/30/2003 Outpatient [facility] [address] [facility] [...] as of this encounter Visit Diagnoses Diagnosis Disorders of bursae and tendons in [facility] region, unspecified - Primary documented in this encounter
--- OUTSIDE RECORDS SUMMARY | 2020-03-24 14:55 | XMS REPORT | Encounter Summary ---
Author Author [facility] Organization [facility] Address Unknown Phone Unavailable Care Team Providers Care Sock Liner Name Role Phone Shahram Mccallum MD PCP Unavailable Claus Couch MD PCP Encounter Details Care Team Description Date Type Department Roger Heard, DO [address] [place] [address] ROTATOR CUFF SYND NOS (Primary Dx) 05/28/2003 Emergency [facility] Emergency Department [address] [address] Social History Date Tobacco Use [...] Diagnosis Disorders of bursae and tendons in [place] region, unspecified - Primary documented in this encounter
--- OUTSIDE RECORDS SUMMARY | 2020-03-24 14:55 | XMS REPORT | Encounter Summary ---
Author Author [facility] Organization [facility] Address Unknown Phone Unavailable Care Team Providers Care Fats And Oils Loader Name Role Phone Shahram Mccallum MD PCP Unavailable Claus Couch MD PCP Encounter Details Care Team Description Date Type Department Shahram Mccallum MD NO ADDRESS ON FILE DIABETES UNCOMPL CHARLES-UNCONTRLLED (Prim rolando Dx) 06/28/2003 Outpatient [facility] Historical [address] [place] [address] Social History Date Tobacco Use Types Packs/Day [...] diabetes mellitu s without mention of complication, uncontrolled - Primary documented in this encounter
--- OUTSIDE RECORDS SUMMARY | 2020-03-24 14:55 | XMS REPORT | Encounter Summary ---
Author Author [facility] Organization [facility] Address Unknown Phone Unavailable Care Team Providers Care Packager Hand Name Role Phone Shahram Mccallum MD PCP Unavailable Claus Couch MD PCP Encounter Details Care Team Description Date Type Department Bahman Roberts, DO [address] [place] [address] Joint pain-forearm (Primary Dx) 08/17/2003 Outpatient [facility] XRAY LAB Historical Social History Date Tobacco [...]
--- OUTSIDE RECORDS SUMMARY | 2020-03-24 14:55 | XMS REPORT | Encounter Summary ---
Author Author [facility] Organization [facility] Address Unknown Phone Unavailable Care Team Providers Care Social Psychologist Name Role Phone Shahram Mccallum MD PCP Unavailable Claus Couch MD PCP Encounter Details Care Team Description Date Type Department Shahram Mccallum MD NO ADDRESS ON FILE HYPOGLYCEMIA NOS (Primary Dx) 07/17/2003 Outpatient [facility] [address] [facility] Historical MEDICAID Social History Date [...] as of this encounter Visit Diagnoses Diagnosis Hypoglycemia, unspecified - Primary documented in this encounter
--- OUTSIDE RECORDS SUMMARY | 2020-03-24 14:55 | XMS REPORT | Encounter Summary ---
Author Author [facility] Organization [facility] Address Unknown Phone Unavailable Care Team Providers Care Geospatial Intelligence Analyst Name Role Phone Shahram Mccallum MD PCP Unavailable Claus Couch MD PCP Encounter Details Care Team Description Date Type Department Shahram Mccallum MD NO ADDRESS ON FILE POLYMYALGIA RHEUMATICA (Primary Dx) 07/03/2003 Outpatient [facility] Consol idated Historical [address] [address] Social History Date Tobacco Use Types Packs/Day [...]
--- OUTSIDE RECORDS SUMMARY | 2020-03-24 14:55 | XMS REPORT | Encounter Summary ---
Author Author [facility] Organization [facility] Address Unknown Phone Unavailable Care Team Providers Care Jtac Name Role Phone Shahram Mccallum MD PCP Unavailable Claus Couch MD PCP Encounter Details Care Team Description Date Type Department Shahram Mccallum MD NO ADDRESS ON FILE MYALGIA AND MYOSITIS NOS (Primary Dx) 06/09/[address] [address] Social History Date Tobacco Use [...] as of this encounter Visit Diagnoses Diagnosis Myalgia and myositis, unspecified - Farhana sigrid Mylagia and myositis, unspecified documented in this encounter
--- OUTSIDE RECORDS SUMMARY | 2020-03-24 14:55 | XMS REPORT | Encounter Summary ---
Author Author [facility] Organization [facility] Address Unknown Phone Unavailable Care Team Providers Care Supervisor Bottle House Cleaners Name Role Phone Shahram Mccallum MD PCP Unavailable Claus Couch MD PCP Encounter Details Care Team Description Date Type Department Bahman Roberts, DO [address] [place] [address] ELB/FOREARM/WRST INJURY NOS (Primary Dx) 08/31/2003 Outpatient HIS [facility] XRAY LAB Historical Social History [...]
--- OUTSIDE RECORDS SUMMARY | 2020-03-24 14:55 | XMS REPORT | Encounter Summary ---
Author Author [facility] Organization [facility] Address Unknown Phone Unavailable Care Team Providers Care Arc Air Operator Name Role Phone Shahram Mccallum MD PCP Unavailable Claus Couch MD PCP Encounter Details Care Team Description Date Type Department Shahram Mccallum MD NO ADDRESS ON FILE DIABETES UNCOMPL ADULT-TYPE II (Primary Dx) 08/30/2003 Outpatient [facility] [address] [facility] Historical MEDICAID Social History Date Tobacco Use [...]
--- OUTSIDE RECORDS SUMMARY | 2020-03-24 14:55 | XMS REPORT | Encounter Summary ---
Author Author [facility] Organization [facility] Address Unknown Phone Unavailable Care Team Providers Care Adobe Cq Developer Name Role Phone Shahram Mccallum MD PCP Unavailable Claus Couch MD PCP Encounter Details Care Team Description Date Type Department Junior Beal MD [address] [place] [id number] RECTAL & ANAL HEMORRHAGE (Primary Dx) 07/06/2003 Outpatient [facility] [address] [facility] Historical MEDICAID Social History Date Tobacco Use [...] of this encounter Visit Diagnoses Diagnosis Hemorrhage of rectum and anus - Primary documented in this encounter
--- OUTSIDE RECORDS SUMMARY | 2020-03-24 14:55 | XMS REPORT | Encounter Summary ---
Author Author [facility] Organization [facility] Address Unknown Phone Unavailable Care Team Providers Care Network Architect Name Role Phone Shahram Mccallum MD PCP Unavailable Claus Couch MD PCP Encounter Details Care Team Description Date Type Department Shahram Mccallum MD NO ADDRESS ON FILE DIABETES UNCOMPL ADULT-TYPE II (Primary Dx) 06/07/2003 Outpatient [facility] Consol idated Historical [facility] [address] [place] [address] Social History Date Tobacco Use Types Packs/Day [...]
--- OUTSIDE RECORDS SUMMARY | 2020-03-24 14:55 | XMS REPORT | Encounter Summary ---
Author Author [facility] Organization [facility] Address Unknown Phone Unavailable Care Team Providers Care Kelp Or Seagrass Gatherer Name Role Phone Shahram Mccallum MD PCP Unavailable Claus Couch MD PCP Encounter Details Care Team Description Date Type Department Jaime III, Oliverio Magdaleno MD [address] [place] [address] RETENTION OF URINE UNSPEC (Primary Dx) 05/24/2003 Outpatient HIS [facility] ED Historical Social History Date Tobacco Use Types Packs/Day Years Used Never Assessed Sex Assigned at Date Recorded Not on file Industry Job Start Date Occupation Not on file Not on file Not on file Travel End Travel History Travel Start No recent travel history available. documented as of this encounter Plan of Treatment Not on filedocumented as of this encounter Visit Diagnoses Diagnosis Retention of urine, unspecified - Prima ry documented in this encounter
--- OUTSIDE RECORDS SUMMARY | 2020-03-24 14:55 | XMS REPORT | Encounter Summary ---
Author Author [facility] Organization [facility] Address Unknown Phone Unavailable Care Team Providers Care Slotter Operator Helper Name Role Phone Shahram Mccallum MD PCP Unavailable Claus Couch MD PCP Encounter Details Care Team Description Date Type Department Jaime III, Oliverio Magdaleno MD [address] [place] [address] PREOP EXAM OTHER UNSPECIFIED (Primary Dx ) 08/02/2003 Outpatient [facility] Laboratory Services [address] [address] Social History Date Tobacco [...] as of this encounter Visit Diagnoses Diagnosis Preoperative examination, unspecified - Primary documented in this encounter
--- OUTSIDE RECORDS SUMMARY | 2020-03-24 14:55 | XMS REPORT | Encounter Summary ---
Author Author [facility] Organization [facility] Address Unknown Phone Unavailable Care Team Providers Care Editorial Project Manager Name Role Phone Shahram Mccallum MD PCP Unavailable Claus Couch MD PCP Encounter Details Care Team Description Date Type Department Junior Beal MD [address] [place] [address] DIVERTICULOSIS OF COLON W BLEED (Primary Dx) 07/11/2003 Outpatient [facility] SURG Historical Social History [...] as of this encounter Visit Diagnoses Diagnosis Diverticulosis of colon with hemorrhage - Primary documented in this encounter
--- OUTSIDE RECORDS SUMMARY | 2020-03-24 14:55 | XMS REPORT | Encounter Summary ---
Author Author [facility] Organization [facility] Address Unknown Phone Unavailable Care Team Providers Care Syrup Mixer Name Role Phone Shahram Mccallum MD PCP Unavailable Claus Couch MD PCP Encounter Details Care Team Description Date Type Department Sandee Flood, JET SKI MECHANIC [address] [place] [address] HEMATURIA (Primary Dx) 05/03/2003 Outpatient HIS [facility] XRAY LAB Historical Social History [...]
--- OUTSIDE RECORDS SUMMARY | 2020-03-24 14:55 | XMS REPORT | Encounter Summary ---
Author Author [facility] Organization [facility] Address Unknown Phone Unavailable Care Team Providers Care Public Health Sanitarian Name Role Phone Shahram Mccallum MD PCP Unavailable Claus Couch MD PCP Encounter Details Care Team Description Date Type Department Jada Fernandez MD NO ADDRESS ON FILE ROTATOR CUFF SYND NOS (Primary Dx) 05/30/2003 Outpatient [facility] Consol idated Historical [facility] [address] [place] [address] Social History Date Tobacco Use Types Packs/Day [...] Diagnosis Disorders of bursae and tendons in [facility] region, unspecified - Primary documented in this encounter
--- OUTSIDE RECORDS SUMMARY | 2020-03-24 14:55 | XMS REPORT | Encounter Summary ---
Author Author [facility] Organization [facility] Address Unknown Phone Unavailable Care Team Providers Care Rural Route Mail Carrier Name Role Phone Shahram Mccallum MD PCP Unavailable Claus Couch MD PCP Encounter Details Care Team Description Date Type Department Jaime III, Oliverio Magdaleno MD [address] [place] [address] HYPERTROPHY PROSTATE WITH OBST (Primary Dx) 08/23/2003 Inpatient [facility] Surgery [address] [address] Social History Date Tobacco Use [...] as of this encounter Visit Diagnoses Diagnosis Hypertrophy of prostate with urinary ob struction and other lower urinary tract symptoms (LUTS) - Primary documented in this encounter
--- OUTSIDE RECORDS SUMMARY | 2020-03-24 14:55 | XMS REPORT | Encounter Summary ---
Author Author [facility] Organization [facility] Address Unknown Phone Unavailable Care Team Providers Care Green Marketing Analyst Name Role Phone Shahram Mccallum MD PCP Unavailable Claus Couch MD PCP Encounter Details Care Team Description Date Type Department Shahram Mccallum MD NO ADDRESS ON FILE Joint pain-shlder (Primary Dx) 06/05/2003 Outpatient [facility] Consol idated Historical [facility] [address] [place] [address] Social History Date Tobacco Use Types Packs/Day Years Used Never Assessed Sex Assigned at Date Recorded Not on file Industry Job Start Date Occupation Not on file Not on file Not on file Travel End Travel History Travel Start No recent travel history available. documented as of this encounter Plan of Treatment Not on filedocumented as of this encounter Visit Diagnoses Diagnosis Joint pain-shlder - Primary Pain in joint, shoulder region documented in this encounter
--- OUTSIDE RECORDS SUMMARY | 2020-03-24 14:55 | XMS REPORT | Encounter Summary ---
Author Author [facility] Organization [facility] Address Unknown Phone Unavailable Care Team Providers Care Advertising Rep Name Role Phone Shahram Mccallum MD PCP Unavailable Claus Couch MD PCP Encounter Details Care Team Description Date Type Department Shahram Mccallum MD NO ADDRESS ON FILE Elevated sediment rate (Primary Dx) 08/14/2003 Outpatient [facility] [address] [facility] Historical MEDICAID Social History Date [...]
--- OUTSIDE RECORDS SUMMARY | 2020-03-24 14:55 | XMS REPORT | Encounter Summary ---
Author Author [facility] Organization [facility] Address Unknown Phone Unavailable Care Team Providers Care Extended Day Teacher Name Role Phone Shahram Mccallum MD PCP Unavailable Claus Couch MD PCP Encounter Details Care Team Description Date Type Department Shahram Mccallum MD NO ADDRESS ON FILE HYPOGLYCEMIA NOS (Primary Dx) 07/17/2003 Outpatient [facility] Consol idated Historical [facility] [address] [place] [address] Social History Date Tobacco Use Types Packs/Day [...]
--- OUTSIDE RECORDS SUMMARY | 2020-03-24 14:55 | XMS REPORT | Encounter Summary ---
Author Author [facility] Organization [facility] Address Unknown Phone Unavailable Care Team Providers Care Scrap Crane Operator Name Role Phone Shahram Mccallum MD PCP Unavailable Claus Couch MD PCP Encounter Details Care Team Description Date Type Department Shahram Mccallum MD NO ADDRESS ON FILE 07/10/2003 Outpatient [facility] Laboratory Services [address] [address] Social History Date Tobacco Use [...]
--- OUTSIDE RECORDS SUMMARY | 2020-03-24 14:55 | XMS REPORT | Encounter Summary ---
Author Author [facility] Organization [facility] Address Unknown Phone Unavailable Care Team Providers Care Operator Specialist Communications Name Role Phone Shahram Mccallum MD PCP Unavailable Claus Couch MD PCP Encounter Details Care Team Description Date Type Department Shahram Mccallum MD NO ADDRESS ON FILE CONTUSION OF BACK (Primary Dx) 08/16/2003 Emergency [facility] Emergency Department [address] [address] Social History Date Tobacco Use [...] as of this encounter Visit Diagnoses Diagnosis Contusion of back(922.31) - Primary Contusion of back documented in this encounter
--- OUTSIDE RECORDS SUMMARY | 2020-03-24 14:55 | XMS REPORT | Encounter Summary ---
Author Author [facility] Organization [facility] Address Unknown Phone Unavailable Care Team Providers Care Manager Fire Name Role Phone Shahram Mccallum MD PCP Unavailable Claus Couch MD PCP Encounter Details Care Team Description Date Type Department CONTUSION OF HAND(S) (Primar y Dx) 08/11/2003 Emergency [facility] Emergency Department [address] [address] Social History Date Tobacco Use [...] this encounter Visit Diagnoses Diagnosis Contusion of hand(s) - Primary documented in this encounter
--- OUTSIDE RECORDS SUMMARY | 2020-03-24 14:55 | XMS REPORT | Encounter Summary ---
Author Author [facility] Organization [facility] Address Unknown Phone Unavailable Care Team Providers Care Cushion Spring Assembler Name Role Phone Shahram Mccallum MD PCP Unavailable Claus Couch MD PCP Encounter Details Care Team Description Date Type Department Jaime III, Oliverio Magdaleno MD [address] [place] [address] No proc for reasons NEC (Primary Dx) 04/30/2003 [facility]patient [facility] Historical [address] [phone] Social History Date Tobacco Use Types Packs/Day [...]
--- OUTSIDE RECORDS SUMMARY | 2020-03-24 14:55 | XMS REPORT | Encounter Summary ---
Author Author [facility] Address Unknown Phone Unavailable Care Team Providers Care Biometrics Head Name Role Phone Shahram Mccallum MD PCP Unavailable Claus Couch MD PCP Encounter Details Care Team Description Date Type Department Junior Beal MD [address] [place] [id number] RECTAL & ANAL HEMORRHAGE (Primary Dx) 07/06/2003 Outpatient [facility] Consol idated Historical [address] [address] Social History Date Tobacco Use Types Packs/Day [...]
--- OUTSIDE RECORDS SUMMARY | 2020-03-24 14:55 | XMS REPORT | Encounter Summary ---
Author Author [facility] Organization [facility] Address Unknown Phone Unavailable Care Team Providers Care Sales Correspondent Name Role Phone Shahram Mccallum MD PCP Unavailable Claus Couch MD PCP Encounter Details Care Team Description Date Type Department Shahram Mccallum MD NO ADDRESS ON FILE Physical therapy NEC (Primary Dx) 06/13/2003 Inpatient [facility] Historical Social History Date Tobacco Use [...] as of this encounter Visit Diagnoses Diagnosis Physical therapy NEC - Primary Other physical therapy documented in this encounter
--- OUTSIDE RECORDS SUMMARY | 2020-03-24 14:55 | XMS REPORT | Encounter Summary ---
Author Author [facility] Organization [facility] Address Unknown Phone Unavailable Care Team Providers Care Benefits Administrator Name Role Phone Shahram Mccallum MD PCP Unavailable Claus Couch MD PCP Encounter Details Care Team Description Date Type Department Shahram Mccallum MD NO ADDRESS ON FILE POLYMYALGIA RHEUMATICA (Primary Dx) 07/02/2003 Outpatient [facility] [address] [facility] Historical MEDICAID Social History Date [...]
--- OUTSIDE RECORDS SUMMARY | 2020-03-24 14:55 | XMS REPORT | Encounter Summary ---
Author Author [facility] Organization [facility] Address Unknown Phone Unavailable Care Team Providers Care Bilingual Account Manager Name Role Phone Shahram Mccallum MD PCP Unavailable Claus Couch MD PCP Encounter Details Care Team Description Date Type Department Jaime III, Oliverio Magdaleno MD [address] [place] [address] HEMATURIA (Primary Dx) 05/01/2003 Outpatient [facility] Historical [address] [phone] Social History Date Tobacco Use Types Packs/Day [...]
--- OUTSIDE RECORDS SUMMARY | 2020-03-24 14:55 | XMS REPORT | Encounter Summary ---
Author Author [facility] Organization [facility] Address Unknown Phone Unavailable Care Team Providers Care Chief Of Police Name Role Phone Shahram Mccallum MD PCP Unavailable Claus Couch MD PCP Encounter Details Care Team Description Date Type Department Bahman Roberts, DO [address] [place] [address] SPRAIN OF ANKLE NOS (Primary Dx) 08/17/[address] [facility] Consol idated Historical [facility] [address] [place] [address] Social History Date Tobacco Use Types Packs/Day [...] this encounter Visit Diagnoses Diagnosis Sprain of ankle, unspecified site - Farhana matta documented in this encounter
--- OUTSIDE RECORDS SUMMARY | 2020-03-24 14:55 | XMS REPORT | Encounter Summary ---
Author Author [facility] Organization [facility] Address Unknown Phone Unavailable Care Team Providers Care Electric Meter Repairer Apprentice Name Role Phone Shahram Mccallum MD PCP Unavailable Claus Couch MD PCP Encounter Details Care Team Description Date Type Department Shahram Mccallum MD NO ADDRESS ON FILE INJURY OF FACE AND NECK (Primary Dx) 08/16/2003 Outpatient [facility] [address] [place] [phone] Social History Date Tobacco Use Types Packs/Day Years Used Never Assessed Sex Assigned at Date Recorded Not on file Industry Job Start Date Occupation Not on file Not on file Not on file Travel End Travel History Travel Start No recent travel history available. documented as of this encounter Plan of Treatment Not on filedocumented as of this encounter Visit Diagnoses Diagnosis Injury of face and neck - Primary documented in this encounter
--- OUTSIDE RECORDS SUMMARY | 2020-03-24 14:55 | XMS REPORT | Encounter Summary ---
Author Author [facility] Organization [facility] Address Unknown Phone Unavailable Care Team Providers Care Project Manager/Design Manager Name Role Phone Shahram Mccallum MD PCP Unavailable Claus Couch MD PCP Encounter Details Care Team Description Date Type Department Jaime III, Oliverio Magdaleno MD [address] [place] [address] HYPERTROPHY PROSTATE WITH OBST (Primary Dx) 08/09/2003 Inpatient [facility] Surgery [address] [address] Social History Date Tobacco [...]
--- OUTSIDE RECORDS SUMMARY | 2020-03-24 14:56 | XMS REPORT | Encounter Summary ---
Author Author [facility] Organization [facility] Address Unknown Phone Unavailable Care Team Providers Care Motorcycle Subassembler Name Role Phone Shahram Mccallum MD PCP Unavailable Claus Couch MD PCP Encounter Details Care Team Description Date Type Department Shahram Mccallum MD NO ADDRESS ON FILE 12/18/2002 Outpatient [facility] Historical Social History Date Tobacco Use Types [...]
--- OUTSIDE RECORDS SUMMARY | 2020-03-24 14:56 | XMS REPORT | Encounter Summary ---
Author Author [facility] Organization [facility] Address Unknown Phone Unavailable Care Team Providers Care Reports Analysis Manager Name Role Phone Shahram Mccallum MD PCP Unavailable Claus Couch MD PCP Encounter Details Care Team Description Date Type Department Shahram Mccallum MD NO ADDRESS ON FILE HEADACHE (Primary Dx) 08/07/2002 Outpatient [facility] Consol idated Historical [address] [address] Social History Date Tobacco Use Types Packs/Day [...]
--- OUTSIDE RECORDS SUMMARY | 2020-03-24 14:56 | XMS REPORT | Encounter Summary ---
Author Author [facility] Organization [facility] Address Unknown Phone Unavailable Care Team Providers Care Video Producer Name Role Phone Shahram Mccallum MD PCP Unavailable Claus Couch MD PCP Encounter Details Care Team Description Date Type Department Shahram Mccallum MD NO ADDRESS ON FILE DIABETES UNCOMPL ADULT-TYPE II (Primary Dx) 10/19/2002 Outpatient [facility] Consol idated Historical [facility] [address] [place] [address] Social History Date Tobacco Use Types Packs/Day [...]
--- OUTSIDE RECORDS SUMMARY | 2020-03-24 14:56 | XMS REPORT | Encounter Summary ---
Author Author [facility] Address Unknown Phone Unavailable Care Team Providers Care Sheet Manufacturing Supervisor Name Role Phone Shahram Mccallum MD PCP Unavailable Claus Couch MD PCP Encounter Details Care Team Description Date Type Department Shahram Mccallum MD NO ADDRESS ON FILE 07/14/2001 Outpatient [facility] Laboratory Services [address] [address] Social History Date Tobacco [...]
--- OUTSIDE RECORDS SUMMARY | 2020-03-24 14:56 | XMS REPORT | Encounter Summary ---
[...] FILE DIABETES UNCOMPL ADULT-TYPE II (Primary Dx) 12/25/2002 Outpatient [facility] Consol idated Historical [facility] [address] [place] [address] Social History Date Tobacco Use Types Packs/Day [...]
--- OUTSIDE RECORDS SUMMARY | 2020-03-24 14:56 | XMS REPORT | Encounter Summary ---
Author Author [facility] Organization [facility] Address Unknown Phone Unavailable Care Team Providers Care Agricultural Aircraft Pilot Name Role Phone Shahram Mccallum MD PCP Unavailable Claus Couch MD PCP Encounter Details Care Team Description Date Type Department Shahram Mcclalum MD NO ADDRESS ON FILE CHEST PAIN NOS (Primary Dx) 03/21/2003 [facility] [address] [place] [address] Social History Date Tobacco Use [...]
--- OUTSIDE RECORDS SUMMARY | 2020-03-24 14:56 | XMS REPORT | Encounter Summary ---
Author Author [facility] Organization [facility] Address Unknown Phone Unavailable Care Team Providers Care Hip Hop Performers Name Role Phone Shahram Mccallum MD PCP Unavailable Claus Couch MD PCP Encounter Details Care Team Description Date Type Department Shahram Mccallum MD NO ADDRESS ON FILE Pure hypercholesterolem (Primary Dx) 03/16/2002 Outpatient [facility] MEDICARE Historical MEDICAID Social History Date Tobacco Use [...]
--- OUTSIDE RECORDS SUMMARY | 2020-03-24 14:56 | XMS REPORT | Encounter Summary ---
Author Author [facility] Organization [facility] Address Unknown Phone Unavailable Care Team Providers Care Lead Nitrate Processor Name Role Phone Shahram Mccallum MD PCP Unavailable Claus Couch MD PCP Encounter Details Care Team Description Date Type Department Shahram Mccallum MD NO ADDRESS ON FILE 01/20/2002 Outpatient [facility] Consol idated Historical [facility] [address] [place] [address] Social History Date Tobacco Use Types Packs/Day [...]
--- OUTSIDE RECORDS SUMMARY | 2020-03-24 14:56 | XMS REPORT | Encounter Summary ---
Author Author [facility] Organization [facility] Address Unknown Phone Unavailable Care Team Providers Care Break Off Worker Name Role Phone Shahram Mccallum MD PCP Unavailable Claus Couch MD PCP Encounter Details Care Team Description Date Type Department Junior Nazario MD HEMATURIA (Primary Dx) 04/20/2003 Outpatient [facility] Consol idated Historical [facility] [address] [place] [address] Social History Date Tobacco Use Types Packs/Day [...]
--- OUTSIDE RECORDS SUMMARY | 2020-03-24 14:56 | XMS REPORT | Encounter Summary ---
Author Author [facility] Organization [facility] Address Unknown Phone Unavailable Care Team Providers Care Pill Maker Name Role Phone Shahram Mccallum MD PCP Unavailable Claus Couch MD PCP Encounter Details Care Team Description Date Type Department Shahram Mccallum MD NO ADDRESS ON FILE DIABETES UNCOMPL ADULT-TYPE II (Primary Dx) 06/22/2002 Outpatient [facility] MEDICARE Historical MEDICAID Social [...]
--- OUTSIDE RECORDS SUMMARY | 2020-03-24 14:56 | XMS REPORT | Encounter Summary ---
Author Author [facility] Organization [facility] Address Unknown Phone Unavailable Care Team Providers Care Special Ed Assistant Name Role Phone Shahram Mccallum MD PCP Unavailable Claus Couch MD PCP Encounter Details Care Team Description Date Type Department Walter Oconnor MD [address] [facility] [address] [place] [address] No proc for reasons NEC (Primary Dx) 08/28/2002 Outpatient [facility] Laboratory Services [address] [address] Social History Date Tobacco Use [...]
--- OUTSIDE RECORDS SUMMARY | 2020-03-24 14:56 | XMS REPORT | Encounter Summary ---
Author Author [facility] Organization [facility] Address Unknown Phone Unavailable Care Team Providers Care Front Line Leader Name Role Phone Shahram Mccallum MD PCP Unavailable Claus Couch MD PCP Encounter Details Care Team Description Date Type Department Shahram Mccallum MD NO ADDRESS ON FILE CORONARY ATHEROSCLER UNSPEC VESSEL (Prim rolando Dx) 12/15/2001 [facility] MEDICAID Social History Date Tobacco [...] Coronary atherosclerosis of unspecified type of vessel, [place] or graft - Primary documented in this encounter
--- OUTSIDE RECORDS SUMMARY | 2020-03-24 14:56 | XMS REPORT | Encounter Summary ---
Author Author [facility] Organization [facility] Address Unknown Phone Unavailable Care Team Providers Care Program Director/Morning Show Host Name Role Phone Shahram Mccallum MD PCP Unavailable Claus Couch MD PCP Encounter Details Care Team Description Date Type Department Shahram Mccallum MD NO ADDRESS ON FILE Pure hypercholesterolem (Primary Dx) 09/20/2001 Outpatient [facility] MEDICARE Historical MEDICAID Social [...]
--- OUTSIDE RECORDS SUMMARY | 2020-03-24 14:56 | XMS REPORT | Encounter Summary ---
Author Author [facility] Organization [facility] Address Unknown Phone Unavailable Care Team Providers Care Narcotics Agent Name Role Phone Shahram Mccallum MD PCP Unavailable Claus Couch MD PCP Encounter Details Care Team Description Date Type Department hSahram Mccallum MD NO ADDRESS ON FILE Chest Pain NEC (Primary Dx) 10/20/2001 Emergency [facility] [place] [facility] Emergency Department [address] [address] Social History Date Tobacco Use [...] of this encounter Visit Diagnoses Diagnosis Chest Pain NEC - Primary Other chest pain documented in this encounter
--- OUTSIDE RECORDS SUMMARY | 2020-03-24 14:56 | XMS REPORT | Encounter Summary ---
Author Author [facility] Organization [facility] Address Unknown Phone Unavailable Care Team Providers Care Windows Systems Administrator Name Role Phone Shahram Mcclalum MD PCP Unavailable Claus Couch MD PCP Encounter Details Care Team Description Date Type Department Shahram Mccallum MD NO ADDRESS ON FILE SCHUMACHER'S PALSY (Primary Dx) 07/06/2002 Outpatient [facility] Consol idated Historical [address] [address] Social History Date Tobacco Use Types Packs/Day [...]
--- OUTSIDE RECORDS SUMMARY | 2020-03-24 14:56 | XMS REPORT | Encounter Summary ---
Author Author [facility] Organization [facility] Address Unknown Phone Unavailable Care Team Providers Care Aligner Name Role Phone Shahram Mccallum MD PCP Unavailable Claus Couch MD PCP Encounter Details Care Team Description Date Type Department Shahram Mccallum MD NO ADDRESS ON FILE 05/08/2002 Outpatient [facility] Consol idated Historical [facility] [address] [place] [address] Social History Date Tobacco Use Types Packs/Day [...]
--- OUTSIDE RECORDS SUMMARY | 2020-03-24 14:56 | XMS REPORT | Encounter Summary ---
Author Author [facility] Organization [facility] Address Unknown Phone Unavailable Care Team Providers Care Insurance Coder Name Role Phone Shahram Mccallum MD PCP Unavailable Claus Couch MD PCP Encounter Details Care Team Description Date Type Department Shahram Mccallum MD NO ADDRESS ON FILE Pure hypercholesterolem (Primary Dx) 03/13/2003 Outpatient [facility] Consol idated Historical [address] [address] Social History Date Tobacco Use Types Packs/Day [...]
--- OUTSIDE RECORDS SUMMARY | 2020-03-24 14:56 | XMS REPORT | Encounter Summary ---
Author Author [facility] Organization [facility] Address Unknown Phone Unavailable Care Team Providers Care Bench Worker Apprentice Name Role Phone Shahram Mccallum MD PCP Unavailable Claus Couch MD PCP Encounter Details Care Team Description Date Type Department Shahram Mccallum MD NO ADDRESS ON FILE 12/21/2001 Outpatient [facility] Consol idated Historical [facility] [address] [place] [address] Social History Date Tobacco Use Types Packs/Day [...]
--- OUTSIDE RECORDS SUMMARY | 2020-03-24 14:56 | XMS REPORT | Encounter Summary ---
Author Author [facility] Organization [facility] Address Unknown Phone Unavailable Care Team Providers Care Claim Specialist Name Role Phone Shahram Mccallum MD PCP Unavailable Claus Couch MD PCP Encounter Details Care Team Description Date Type Department Junior Nazario MD HEMATURIA (Primary Dx) 04/20/2003 Outpatient [facility] [address] [facility] Historical MEDICAID Social History Date Tobacco [...]
--- OUTSIDE RECORDS SUMMARY | 2020-03-24 14:56 | XMS REPORT | Encounter Summary ---
Author Author [facility] Organization [facility] Address Unknown Phone Unavailable Care Team Providers Care Workers Compensation Claims Analyst Name Role Phone Shahram Mccallum MD PCP Unavailable Claus Couch MD PCP Encounter Details Care Team Description Date Type Department Self, Aries Montelongo MD [address] [place] [address] 01/11/2002 Outpatient [facility] Consol idated Historical [facility] [address] [place] [address] Social History Date Tobacco Use Types Packs/Day [...]
--- OUTSIDE RECORDS SUMMARY | 2020-03-24 14:56 | XMS REPORT | Encounter Summary ---
Author Author [facility] Organization [facility] Address Unknown Phone Unavailable Care Team Providers Care Tmr Teacher Name Role Phone Shahram Mccallum MD PCP Unavailable Claus Couch MD PCP Encounter Details Care Team Description Date Type Department Shahram Mccallum MD NO ADDRESS ON FILE 06/29/2002 Outpatient [facility] Consol idated Historical [facility] [address] [place] [address] Social History Date Tobacco Use Types Packs/Day [...]
--- OUTSIDE RECORDS SUMMARY | 2020-03-24 14:56 | XMS REPORT | Encounter Summary ---
Author Author [facility] Organization [facility] Address Unknown Phone Unavailable Care Team Providers Care Oyster Preparer Name Role Phone Shahram Mccallum MD PCP Unavailable Claus Couch MD PCP Encounter Details Care Team Description Date Type Department Self, Aries Montelongo MD [address] [place] [address] Coronary atherosclerosis of [place] coron rolando vessel (Primary Dx) 03/21/2003 Inpatient [facility] Historical [facility] [place] [address] [place] [address] Social History Date Tobacco Use [...] encounter Visit Diagnoses Diagnosis Coronary atherosclerosis of [place] thom nary vessel - Primary Coronary atherosclerosis of [place] thom nary artery documented in this encounter
--- OUTSIDE RECORDS SUMMARY | 2020-03-24 14:56 | XMS REPORT | Encounter Summary ---
Author Author [facility] Organization [facility] Address Unknown Phone Unavailable Care Team Providers Care Feltmaker And Weigher Name Role Phone Shahram Mccallum MD PCP Unavailable Claus Couch MD PCP Encounter Details Care Team Description Date Type Department Shahram Mccallum MD NO ADDRESS ON FILE CHRONIC AIRWAY OBSTRUCTION NEC (Primary Dx) 12/20/2002 Outpatient [facility] [address] [facility] Historical MEDICAID Social History Date [...] as of this encounter Visit Diagnoses Diagnosis Chronic airway obstruction, not elsewhe re classified - Primary documented in this encounter
--- OUTSIDE RECORDS SUMMARY | 2020-03-24 14:56 | XMS REPORT | Encounter Summary ---
Author Author [facility] Organization [facility] Address Unknown Phone Unavailable Care Team Providers Care Cheese Pancake Roller Name Role Phone Shahram Mccallum MD PCP Unavailable Claus Couch MD PCP Encounter Details Care Team Description Date Type Department Junior Nazario MD HEMATURIA (Primary Dx) 04/23/2003 Outpatient [facility] [address] [place] [address] Social History Date Tobacco Use [...]
--- OUTSIDE RECORDS SUMMARY | 2020-03-24 14:56 | XMS REPORT | Encounter Summary ---
Author Author [facility] Organization [facility] Address Unknown Phone Unavailable Care Team Providers Care Mine Engineering Superintendent Name Role Phone Shahram Mccallum MD PCP Unavailable Claus Couch MD PCP Encounter Details Care Team Description Date Type Department Shahram Mccallum MD NO ADDRESS ON FILE CORONARY ATHEROSCLER UNSPEC VESSEL (Prim rolando Dx) 09/27/2001 Outpatient [facility] Consol idated Historical [facility] [address] [place] [address] Social History Date Tobacco Use Types Packs/Day [...] Coronary atherosclerosis of unspecified type of vessel, [place] or graft - Primary documented in this encounter
--- OUTSIDE RECORDS SUMMARY | 2020-03-24 14:56 | XMS REPORT | Encounter Summary ---
Author Author [facility] Organization [facility] Address Unknown Phone Unavailable Care Team Providers Care Chucking Machine Operator Name Role Phone Shahram Mccallum MD PCP Unavailable Claus Couch MD PCP Encounter Details Care Team Description Date Type Department Shahram Mccallum MD NO ADDRESS ON FILE Hyperlipidemia NEC/NOS (Primary Dx) 07/19/2001 Outpatient [facility] Consol idated Historical [facility] [address] [place] [address] Social History Date Tobacco Use Types Packs/Day [...]
--- OUTSIDE RECORDS SUMMARY | 2020-03-24 14:56 | XMS REPORT | Encounter Summary ---
Author Author [facility] Organization [facility] Address Unknown Phone Unavailable Care Team Providers Care Licensed Funeral Director And Embalmer Name Role Phone Shahram Mccallum MD PCP Unavailable Claus Couch MD PCP Encounter Details Care Team Description Date Type Department Shahram Mccallum MD NO ADDRESS ON FILE SCHUMACHER'S PALSY (Primary Dx) 07/06/2002 Inpatient [facility] ICU [address] [place] [address] Social History Date Tobacco Use [...]
--- OUTSIDE RECORDS SUMMARY | 2020-03-24 14:56 | XMS REPORT | Encounter Summary ---
Author Author [facility] Organization [facility] Address Unknown Phone Unavailable Care Team Providers Care Janitorial Maintenance Worker Name Role Phone Shahram Mccallum MD PCP Unavailable Claus Couch MD PCP Encounter Details Care Team Description Date Type Department Walter Oconnor MD [address] [facility] [address] [place] [address] No proc for reasons NEC (Primary Dx) 03/12/2003 Outpatient [facility] Laboratory Services [address] [address] Social History Date Tobacco Use [...]
--- OUTSIDE RECORDS SUMMARY | 2020-03-24 14:56 | XMS REPORT | Encounter Summary ---
Author Author [facility] Organization [facility] Address Unknown Phone Unavailable Care Team Providers Care Kiln Fireman Name Role Phone Shahram Mccallum MD PCP Unavailable Claus Couch MD PCP Encounter Details Care Team Description Date Type Department Chu Back [address] [place] [address] SCHUMACHER'S PALSY (Primary Dx) [facility] Historical [address] [address] Social History Date Tobacco Use [...]
--- OUTSIDE RECORDS SUMMARY | 2020-03-24 14:56 | XMS REPORT | Encounter Summary ---
Author Author [facility] Organization [facility] Address Unknown Phone Unavailable Care Team Providers Care Artificial Flower Maker Name Role Phone Shahram Mccallum MD PCP Unavailable Claus Couch MD PCP Encounter Details Care Team Description Date Type Department Shahram Mccallum MD NO ADDRESS ON FILE 03/21/2002 Outpatient [facility] Consol idated Historical [facility] [address] [place] [address] Social History Date Tobacco Use Types Packs/Day [...]
--- OUTSIDE RECORDS SUMMARY | 2020-03-24 14:56 | XMS REPORT | Encounter Summary ---
Author Author [facility] Organization [facility] Address Unknown Phone Unavailable Care Team Providers Care Fire Control Assistant Name Role Phone Shahram Mccallum MD PCP Unavailable Claus Couch MD PCP Encounter Details Care Team Description Date Type Department Shahram Mccallum MD NO ADDRESS ON FILE DIABETES UNCOMPL ADULT-TYPE II (Primary Dx) 03/08/2003 Outpatient [facility] [address] [facility] Historical MEDICAID Social History Date [...]
--- OUTSIDE RECORDS SUMMARY | 2020-03-24 14:56 | XMS REPORT | Encounter Summary ---
Author Author [facility] Organization [facility] Address Unknown Phone Unavailable Care Team Providers Care Lecturer In Computer Science Name Role Phone Shahram Mccallum MD PCP Unavailable Claus Couch MD PCP Encounter Details Care Team Description Date Type Department Ayana Alfaro ARNP [address] [place] [address] Hyperlipidemia NEC/NOS (Primary Dx) 07/12/2002 Outpatient [facility] Consol idated Historical [address] [address] Social History Date Tobacco Use Types Packs/Day [...]
--- OUTSIDE RECORDS SUMMARY | 2020-03-24 14:57 | XMS REPORT | Encounter Summary ---
Author Author [facility] Organization [facility] Address Unknown Phone Unavailable Care Team Providers Care Insecticide Expert Name Role Phone Shahram Mccallum MD PCP Unavailable Claus Couch MD PCP Encounter Details Care Team Description Date Type Department Shahram Mccallum MD NO ADDRESS ON FILE Chronic airway obstruction, not elsewher e classified (Primary Dx) 02/21/[address] [facility] Consol idated Historical [address] [address] Social History Date Tobacco Use Types Packs/Day [...]
--- OUTSIDE RECORDS SUMMARY | 2020-03-24 14:57 | XMS REPORT | Encounter Summary ---
Author Author [facility] Organization [facility] Address Unknown Phone Unavailable Care Team Providers Care Final Canoe Inspector Name Role Phone Shahram Mccallum MD PCP Unavailable Claus Couch MD PCP Encounter Details Care Team Description Date Type Department Shahram Mccallum MD NO ADDRESS ON FILE Chest Pain NEC (Primary Dx) 09/01/2000 Inpatient Historical Social History Date Tobacco Use Types [...]
--- OUTSIDE RECORDS SUMMARY | 2020-03-24 14:57 | XMS REPORT | Encounter Summary ---
Author Author [facility] Organization [facility] Address Unknown Phone Unavailable Care Team Providers Care Accounting Clerks Supervisor Name Role Phone Shahram Mccallum MD PCP Unavailable Claus Couch MD PCP Encounter Details Care Team Description Date Type Department Shahram Mccallum MD NO ADDRESS ON FILE 10/01/2000 Outpatient [facility] Laboratory Services [address] [address] Social History Date Tobacco Use [...]
--- OUTSIDE RECORDS SUMMARY | 2020-03-24 14:57 | XMS REPORT | Encounter Summary ---
Author Author [facility] Organization [facility] Address Unknown Phone Unavailable Care Team Providers Care Farm Equipment Service Technician Name Role Phone Shahram Mccallum MD PCP Unavailable Claus Couch MD PCP Encounter Details Care Team Description Date Type Department Shahram Mccallum MD NO ADDRESS ON FILE Coronary atherosclerosis of unspecified type of vessel, [place] or graft (Primary Dx) 10/01/[address] [facility] Consol idated Historical [address] [address] Social History Date Tobacco Use Types Packs/Day [...] Coronary atherosclerosis of unspecified type of vessel, [place] or graft - Primary documented in this encounter
--- OUTSIDE RECORDS SUMMARY | 2020-03-24 14:57 | XMS REPORT | Encounter Summary ---
Author Author [facility] Organization [facility] Address Unknown Phone Unavailable Care Team Providers Care Technical System Analyst Name Role Phone Shahram Mccallum MD PCP Unavailable Claus Couch MD PCP Encounter Details Care Team Description Date Type Department Shahram Mccallum MD NO ADDRESS ON FILE 05/12/[address] [facility] Laboratory Services [address] [address] Social History Date Tobacco Use [...]
--- OUTSIDE RECORDS SUMMARY | 2020-03-24 14:57 | XMS REPORT | Encounter Summary ---
Author Author [facility] Organization [facility] Address Unknown Phone Unavailable Care Team Providers Care Hadoop Application Developer Name Role Phone Shahram Mccallum MD PCP Unavailable Claus Couch MD PCP Encounter Details Care Team Description Date Type Department Shahram Mccallum MD NO ADDRESS ON FILE Aortocoronary bypass (Primary Dx) 07/05/2000 Outpatient [facility] Consol idated Historical [facility] [address] [place] [address] Social History Date Tobacco Use Types Packs/Day Years Used Never Assessed Sex Assigned at Date Recorded Not on file Industry Job Start Date Occupation Not on file Not on file Not on file Travel End Travel History Travel Start No recent travel history available. documented as of this encounter Plan of Treatment Not on filedocumented as of this encounter Visit Diagnoses Diagnosis Aortocoronary bypass - Primary Postsurgical aortocoronary bypass statu s documented in this encounter
--- OUTSIDE RECORDS SUMMARY | 2020-03-24 14:57 | XMS REPORT | Encounter Summary ---
Author Author [facility] Organization [facility] Address Unknown Phone Unavailable Care Team Providers Care Possum Trapper Name Role Phone Shahram Mccallum MD PCP Unavailable Claus Couch MD PCP Encounter Details Care Team Description Date Type Department Jona Sloan Laxmi, DO [address] [place] [address] Senile nuclear cataract (Primary Dx) 02/15/2001 Outpatient Historical Social History Date Tobacco Use Types Packs/Day Years Used Never Assessed Sex Assigned at Date Recorded Not on file Industry Job Start Date Occupation Not on file Not on file Not on file Travel End Travel History Travel Start No recent travel history available. documented as of this encounter Plan of Treatment Not on filedocumented as of this encounter Visit Diagnoses Diagnosis Senile nuclear cataract - Primary Senile nuclear sclerosis documented in this encounter
--- OUTSIDE RECORDS SUMMARY | 2020-03-24 14:57 | XMS REPORT | Encounter Summary ---
Author Author [facility] Organization [facility] Address Unknown Phone Unavailable Care Team Providers Care Housekeeper/Custodian/Laundry Worker Name Role Phone Shahram Mccallum MD PCP Unavailable Claus Couch MD PCP Encounter Details Care Team Description Date Type Department Shahram Mccallum MD NO ADDRESS ON FILE Type II or unspecified type diabetes clayton litus without mention of complication, not stated as uncontrolled (Primary Dx) 10/05/2000 Outpatient [facility] Consol idated Historical [address] [address] Social History Date Tobacco Use Types Packs/Day [...]
--- OUTSIDE RECORDS SUMMARY | 2020-03-24 14:57 | XMS REPORT | Encounter Summary ---
Author Author [facility] Organization [facility] Address Unknown Phone Unavailable Care Team Providers Care Street Sweeper Name Role Phone Shahram Mccallum MD PCP Unavailable Claus Couch MD PCP Encounter Details Care Team Description Date Type Department Shahram Mccallum MD NO ADDRESS ON FILE Joint pain-shlder (Primary Dx) 03/09/2001 Outpatient [facility] Consol idated Historical [facility] [address] [place] [address] Social History Date Tobacco Use Types Packs/Day [...]
--- OUTSIDE RECORDS SUMMARY | 2020-03-24 14:57 | XMS REPORT | Encounter Summary ---
Author Author [facility] Organization [facility] Address Unknown Phone Unavailable Care Team Providers Care Candy Cutter Hand Name Role Phone Shahram Mccallum MD PCP Unavailable Claus Couch MD PCP Encounter Details Care Team Description Date Type Department Shahram Mccallum MD NO ADDRESS ON FILE Non-healing surg wound (Primary Dx) 08/05/2000 Outpatient [facility] Laboratory Services [address] [address] Social History Date Tobacco Use [...] as of this encounter Visit Diagnoses Diagnosis Non-healing surg wound - Primary Non-healing surgical wound documented in this encounter
--- OUTSIDE RECORDS SUMMARY | 2020-03-24 14:57 | XMS REPORT | Encounter Summary ---
Author Author [facility] Organization [facility] Address Unknown Phone Unavailable Care Team Providers Care Fuel Cell Builder Name Role Phone Shahram Mccallum MD PCP Unavailable Claus Couch MD PCP Encounter Details Care Team Description Date Type Department Shahram Mccallum MD NO ADDRESS ON FILE 08/11/2000 Outpatient [facility] Laboratory Services [address] [address] Social History Date Tobacco [...]
--- OUTSIDE RECORDS SUMMARY | 2020-03-24 14:57 | XMS REPORT | Encounter Summary ---
Author Author [facility] Organization [facility] Address Unknown Phone Unavailable Care Team Providers Care Inventory Coordinator Name Role Phone Shahram Mccallum MD PCP Unavailable Claus Couch MD PCP Encounter Details Care Team Description Date Type Department Shahram Mccallum MD NO ADDRESS ON FILE Coronary atherosclerosis of unspecified type of vessel, [place] or graft (Primary Dx) 12/22/[address] [facility] Consol idated Historical [address] [address] Social History Date Tobacco Use Types Packs/Day [...] Coronary atherosclerosis of unspecified type of vessel, [place] or graft - Primary documented in this encounter
--- OUTSIDE RECORDS SUMMARY | 2020-03-24 14:57 | XMS REPORT | Encounter Summary ---
Author Author [facility] Organization [facility] Address Unknown Phone Unavailable Care Team Providers Care Online Marketer Name Role Phone Shahram Mccallum MD PCP Unavailable Claus Couch MD PCP Encounter Details Care Team Description Date Type Department Shahram Mccallum MD NO ADDRESS ON FILE Asthma w/o status asthm (Primary Dx) 11/22/[address] [facility] Consol idated Historical [facility] [address] [place] [address] Social History Date Tobacco Use Types Packs/Day Years Used Never Assessed Sex Assigned at Date Recorded Not on file Industry Job Start Date Occupation Not on file Not on file Not on file Travel End Travel History Travel Start No recent travel history available. documented as of this encounter Plan of Treatment Not on filedocumented as of this encounter Visit Diagnoses Diagnosis Asthma w/o status asthm - Primary Unspecified asthma documented in this encounter
--- OUTSIDE RECORDS SUMMARY | 2020-03-24 14:57 | XMS REPORT | Encounter Summary ---
Author Author [facility] Organization [facility] Address Unknown Phone Unavailable Care Team Providers Care Red Hat Open Stack Administrator Name Role Phone Shahram Mccallum MD PCP Unavailable Claus Couch MD PCP Encounter Details Care Team Description Date Type Department Shahram Mccallum MD NO ADDRESS ON FILE Chest pain, unspecified (Primary Dx) 07/08/2000 Outpatient [facility] Consol idated Historical [facility] [address] [place] [address] Social History Date Tobacco Use Types Packs/Day [...]
--- OUTSIDE RECORDS SUMMARY | 2020-03-24 14:57 | XMS REPORT | Encounter Summary ---
Author Author [facility] Organization [facility] Address Unknown Phone Unavailable Care Team Providers Care Principal Android Developer Name Role Phone Shahram Mccallum MD PCP Unavailable Claus Couch MD PCP Encounter Details Care Team Description Date Type Department Self, Aries Montelongo MD [address] [place] [address] Chest pain, unspecified (Primary Dx) 02/23/2001 Outpatient [facility] Consol idated Historical [facility] [address] [place] [address] Social History Date Tobacco Use Types Packs/Day [...]
--- OUTSIDE RECORDS SUMMARY | 2020-03-24 14:57 | XMS REPORT | Encounter Summary ---
Author Author [facility] Organization [facility] Address Unknown Phone Unavailable Care Team Providers Care Claim Agent Name Role Phone Shahram Mccallum MD PCP Unavailable Claus Couch MD PCP Encounter Details Care Team Description Date Type Department Junior Beal MD [address] [place] [id number] Routine medical exam (Primary Dx) 03/28/2001 Outpatient [facility] Historical Social History Date Tobacco Use Types [...]
--- OUTSIDE RECORDS SUMMARY | 2020-03-24 14:57 | XMS REPORT | Encounter Summary ---
Author Author [facility] Organization [facility] Address Unknown Phone Unavailable Care Team Providers Care Site Supervisor Name Role Phone Shahram Mccallum MD PCP Unavailable Claus Couch MD PCP Encounter Details Care Team Description Date Type Department Junior Beal MD [address] [place] [id number] Aortocoronary bypass (Primary Dx) 12/15/2000 Outpatient [facility] Historical Social History Date [...]
--- OUTSIDE RECORDS SUMMARY | 2020-03-24 14:57 | XMS REPORT | Encounter Summary ---
Author Author [facility] Organization [facility] Address Unknown Phone Unavailable Care Team Providers Care Commercial Roofing Estimator Name Role Phone Shahram Mccallum MD PCP Unavailable Claus Couch MD PCP Encounter Details Care Team Description Date Type Department Shahram Mccallum MD NO ADDRESS ON FILE Respiratory abnorm NEC (Primary Dx) 05/02/2001 Outpatient [facility] [address] [place] [address] Social History Date Tobacco Use [...] as of this encounter Visit Diagnoses Diagnosis Respiratory abnorm NEC - Primary Other dyspnea and respiratory abnormali ty documented in this encounter
--- OUTSIDE RECORDS SUMMARY | 2020-03-24 14:57 | XMS REPORT | Encounter Summary ---
Author Author [facility] Organization [facility] Address Unknown Phone Unavailable Care Team Providers Care Securities Adviser Name Role Phone Shahram Mccallum MD PCP Unavailable Claus Couch MD PCP Encounter Details Care Team Description Date Type Department Chikis Negrete, BIOPHYSICS PROFESSOR [address] [place] [address] Nonsuppurative otitis media, not specifi ed as acute or chronic (Primary Dx) 09/20/2000 Outpatient [facility] Consol idated Historical [address] [address] Social History Date Tobacco Use Types Packs/Day Years Used Never Assessed Sex Assigned at Date Recorded Not on file Industry Job Start Date Occupation Not on file Not on file Not on file Travel End Travel History Travel Start No recent travel history available. documented as of this encounter Plan of Treatment Not on filedocumented as of this encounter Visit Diagnoses Diagnosis Nonsuppurative otitis media, not specif ied as acute or chronic - Primary documented in this encounter
--- OUTSIDE RECORDS SUMMARY | 2020-03-24 14:57 | XMS REPORT | Encounter Summary ---
Author Author [facility] Organization [facility] Address Unknown Phone Unavailable Care Team Providers Care Coke Still Cleaner Name Role Phone Shahram Mccallum MD PCP Unavailable Claus Couch MD PCP Encounter Details Care Team Description Date Type Department Shahram Mccallum MD NO ADDRESS ON FILE 12/22/2000 Outpatient [facility] Laboratory Services [address] [address] Social History Date Tobacco Use [...]
--- OUTSIDE RECORDS SUMMARY | 2020-03-24 14:57 | XMS REPORT | Encounter Summary ---
Author Author [facility] Organization [facility] Address Unknown Phone Unavailable Care Team Providers Care Charger Operator Helper Name Role Phone Shahram Mccallum MD PCP Unavailable Claus Couch MD PCP Encounter Details Care Team Description Date Type Department Shahram Mccallum MD NO ADDRESS ON FILE 07/08/2000 Outpatient [facility] Laboratory Services [address] [address] Social History Date Tobacco [...]
--- OUTSIDE RECORDS SUMMARY | 2020-03-24 14:57 | XMS REPORT | Encounter Summary ---
Author Author [facility] Organization [facility] Address Unknown Phone Unavailable Care Team Providers Care Forming Yardage Control Operator Name Role Phone Shahram Mccallum MD PCP Unavailable Claus Couch MD PCP Encounter Details Care Team Description Date Type Department Jona Sloan Laxmi, DO [address] [place] [address] Senile nuclear cataract (Primary Dx) 04/14/2001 Outpatient Historical Social History Date Tobacco Use [...]
--- OUTSIDE RECORDS SUMMARY | 2020-03-24 14:57 | XMS REPORT | Encounter Summary ---
Author Author [facility] Organization [facility] Address Unknown Phone Unavailable Care Team Providers Care Transmission Repairer Name Role Phone Shahram Mccallum MD PCP Unavailable Claus Couch MD PCP Encounter Details Care Team Description Date Type Department Shahram Mccallum MD NO ADDRESS ON FILE Unspecified epilepsy without mention of intractable epilepsy (Primary Dx) 05/12/2001 Outpatient [facility] Consol idated Historical [address] [address] Social History Date Tobacco Use Types Packs/Day Years Used Never Assessed Sex Assigned at Date Recorded Not on file Industry Job Start Date Occupation Not on file Not on file Not on file Travel End Travel History Travel Start No recent travel history available. documented as of this encounter Plan of Treatment Not on filedocumented as of this encounter Visit Diagnoses Diagnosis Unspecified epilepsy without mention of intractable epilepsy - Primary documented in this encounter
--- OUTSIDE RECORDS SUMMARY | 2020-03-24 14:57 | XMS REPORT | Encounter Summary ---
Author Author [facility] Organization [facility] Address Unknown Phone Unavailable Care Team Providers Care Aquatic Habitat Biologist Name Role Phone Shahram Mccallum MD PCP Unavailable Claus Couch MD PCP Encounter Details Care Team Description Date Type Department Junior Beal MD [address] [place] [address] No proc for reasons NEC (Primary Dx) 03/28/2001 Outpatient [facility] Historical Social History Date Tobacco [...]
--- OUTSIDE RECORDS SUMMARY | 2020-03-24 14:57 | XMS REPORT | Encounter Summary ---
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 documented as of this encounter Plan of Treatment Not on filedocumented as of this encounter Visit Diagnoses Diagnosis Unspecified disorder of lipoid metaboli sm - Primary documented in this encounter
--- OUTSIDE RECORDS SUMMARY | 2020-03-24 14:57 | XMS REPORT | Encounter Summary ---
Author Author [facility] Organization [facility] Address Unknown Phone Unavailable Care Team Providers Care Medical Equipment Repairer Name Role Phone Shahram Mccallum MD PCP Unavailable Claus Couch MD PCP Encounter Details Care Team Description Date Type Department Junior Beal MD [address] [place] [address] Coronary atherosclerosis of unspecified type of vessel, [place]ock or graft (Primary Dx) 12/10/2000 Outpatient [facility] Historical Social History Date Tobacco Use Types [...] Coronary atherosclerosis of unspecified type of vessel, levelock or graft - Primary documented in this encounter
--- OUTSIDE RECORDS SUMMARY | 2020-03-24 14:57 | XMS REPORT | Encounter Summary ---
Author Author [facility] Organization [facility] Address Unknown Phone Unavailable Care Team Providers Care Hod Carrier Name Role Phone Shahram Mccallum MD PCP Unavailable Claus Couch MD PCP Encounter Details Care Team Description Date Type Department Shharam Mccallum MD NO ADDRESS ON FILE Coronary atherosclerosis of unspecified type of vessel, elem or graft (Primary Dx) 05/01/2001 Inpatient Historical Social History Date Tobacco Use [...] Coronary atherosclerosis of unspecified type of vessel, elem or graft - Primary documented in this encounter
--- OUTSIDE RECORDS SUMMARY | 2020-03-24 14:57 | XMS REPORT | Encounter Summary ---
Author Author [facility] Organization [facility] Address Unknown Phone Unavailable Care Team Providers Care Channel Program Manager Name Role Phone Shahram Mccallum MD PCP Unavailable Claus Couch MD PCP Encounter Details Care Team Description Date Type Department Walter Oconnor MD [address] [facility] [address] [place] [address] Aortocoronary bypass (Primary Dx) 12/10/2000 Outpatient HIS [facility] XRAY LAB Historical Social [...]
--- OUTSIDE RECORDS SUMMARY | 2020-03-24 14:57 | XMS REPORT | Encounter Summary ---
Author Author [facility] Organization [facility] Address Unknown Phone Unavailable Care Team Providers Care Porcelain Finisher Name Role Phone Shahram Mccallum MD PCP Unavailable Claus Couch MD PCP Encounter Details Care Team Description Date Type Department Shahram Mccallum MD NO ADDRESS ON FILE Nausea with vomiting (Primary Dx) 03/31/2001 Outpatient [facility] Consol idated Historical [facility] [address] [place] [address] Social History Date Tobacco Use Types Packs/Day Years Used Never Assessed Sex Assigned at Date Recorded Not on file Industry Job Start Date Occupation Not on file Not on file Not on file Travel End Travel History Travel Start No recent travel history available. documented as of this encounter Plan of Treatment Not on filedocumented as of this encounter Visit Diagnoses Diagnosis Nausea with vomiting - Primary documented in this encounter
--- OUTSIDE RECORDS SUMMARY | 2020-03-24 14:57 | XMS REPORT | Encounter Summary ---
Author Author [facility] Organization [facility] Address Unknown Phone Unavailable Care Team Providers Care Associate Agent Insurance Sales Name Role Phone Shahram Mccallum MD PCP Unavailable Claus Couch MD PCP Encounter Details Care Team Description Date Type Department Shahram Mccallum MD NO ADDRESS ON FILE 02/17/2001 Outpatient [facility] Laboratory Services [address] [address] Social History Date Tobacco Use [...]
--- OUTSIDE RECORDS SUMMARY | 2020-03-24 14:57 | XMS REPORT | Encounter Summary ---
Author Author [facility] Organization [facility] Address Unknown Phone Unavailable Care Team Providers Care Cannery Worker Name Role Phone Shahram Mccallum MD PCP Unavailable Claus Couch MD PCP Encounter Details Care Team Description Date Type Department Shahram Mccallum MD NO ADDRESS ON FILE Pleurisy w/o effus or TB (Primary Dx) 05/16/2001 Outpatient [facility] Consol idated Historical [address] [address] Social History Date Tobacco Use Types Packs/Day Years Used Never Assessed Sex Assigned at Date Recorded Not on file Industry Job Start Date Occupation Not on file Not on file Not on file Travel End Travel History Travel Start No recent travel history available. documented as of this encounter Plan of Treatment Not on filedocumented as of this encounter Visit Diagnoses Diagnosis Pleurisy w/o effus or TB - Primary Pleurisy without mention of effusion or current tuberculosis documented in this encounter
--- OUTSIDE RECORDS SUMMARY | 2020-03-24 14:57 | XMS REPORT | Encounter Summary ---
Author Author [facility] Organization [facility] Address Unknown Phone Unavailable Care Team Providers Care Tortilla Maker Name Role Phone Shahram Mccallum MD PCP Unavailable Claus Couch MD PCP Encounter Details Care Team Description Date Type Department Shahram Mccallum MD NO ADDRESS ON FILE Obstructive chronic bronchitis with exac erbation (Primary Dx) 11/11/2000 Inpatient Historical Social History Date Tobacco Use [...]
--- OUTSIDE RECORDS SUMMARY | 2020-03-24 14:57 | XMS REPORT | Encounter Summary ---
Author Author [facility] Organization [facility] Address Unknown Phone Unavailable Care Team Providers Care Business Performance Analyst Name Role Phone Shahram Mccallum MD PCP Unavailable Claus Couch MD PCP Encounter Details Care Team Description Date Type Department Shahram Mccallum MD NO ADDRESS ON FILE Pure hypercholesterolem (Primary Dx) 07/14/2001 Outpatient [facility] Consol idated Historical [address] [address] Social History Date Tobacco Use Types Packs/Day [...]
--- OUTSIDE RECORDS SUMMARY | 2020-03-24 14:57 | XMS REPORT | Encounter Summary ---
Author Author [facility] Organization [facility] Address Unknown Phone Unavailable Care Team Providers Care [place]ing Supervisor Name Role Phone Shahram Mccallum MD PCP Unavailable Claus Couch MD PCP Encounter Details Care Team Description Date Type Department Shahram Mccallum MD NO ADDRESS ON FILE Obstructive chronic bronchitis with exac erbation (Primary Dx) 01/14/2001 Inpatient Historical Social History Date Tobacco Use [...]
--- OUTSIDE RECORDS SUMMARY | 2020-03-24 14:58 | XMS REPORT | Encounter Summary ---
Author Author [facility] Organization [facility] Address Unknown Phone Unavailable Care Team Providers Care Diamond Cleaner Name Role Phone Shahram Mccallum MD PCP Unavailable Claus Couch MD PCP Encounter Details Care Team Description Date Type Department ColonAndres, [address] [place] [address] Ulcer of lower limbs, except pressure ul cer (Primary Dx) 03/18/2000 Outpatient HIS [facility] Historical Social History Date Tobacco Use Types [...] this encounter Visit Diagnoses Diagnosis Ulcer of lower limbs, except pressure u lcer - Primary ulcer of lower limbs, except pressure u lcer documented in this encounter
--- OUTSIDE RECORDS SUMMARY | 2020-03-24 14:58 | XMS REPORT | Encounter Summary ---
Author Author [facility] Organization [facility] Address Unknown Phone Unavailable Care Team Providers Care Family Program Specialist Name Role Phone Shahram Mccallum MD PCP Unavailable Claus Couch MD PCP Encounter Details Care Team Description Date Type Department Eliseo Castrejon [phone] 06/22/2000 Outpatient [facility] Laboratory Services [address] [address] Social History Date Tobacco Use [...]
--- OUTSIDE RECORDS SUMMARY | 2020-03-24 14:58 | XMS REPORT | Encounter Summary ---
Author Author [facility] Organization [facility] Address Unknown Phone Unavailable Care Team Providers Care Tripper Name Role Phone Shahram Mccallum MD PCP Unavailable Claus Couch MD PCP Encounter Details Care Team Description Date Type Department Colon Andres Fletcher, [address] [place] [address] Osteomyelitis NOS-ankle (Primary Dx) 04/19/2000 Outpatient HIS [facility] Historical Social History Date Tobacco Use Types Packs/Day Years Used Never Assessed Sex Assigned at Date Recorded Not on file Industry Job Start Date Occupation Not on file Not on file Not on file Travel End Travel History Travel Start No recent travel history available. documented as of this encounter Plan of Treatment Not on filedocumented as of this encounter Visit Diagnoses Diagnosis Osteomyelitis NOS-ankle - Primary Unspecified osteomyelitis, ankle and fo ot documented in this encounter
--- OUTSIDE RECORDS SUMMARY | 2020-03-24 14:58 | XMS REPORT | Encounter Summary ---
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
--- OUTSIDE RECORDS SUMMARY | 2020-03-24 14:58 | XMS REPORT | Encounter Summary ---
Author Author [facility] Organization [facility] Address Unknown Phone Unavailable Care Team Providers Care Tomato Grader Name Role Phone Shahram Mccallum MD PCP Unavailable Claus Couch MD PCP Encounter Details Care Team Description Date Type Department Shahram Mccallum MD NO ADDRESS ON FILE Chest pain, unspecified (Primary Dx) 04/14/2000 Outpatient [facility] Consol idated Historical [facility] [address] [place] [address] Social History Date Tobacco Use Types Packs/Day [...]
--- OUTSIDE RECORDS SUMMARY | 2020-03-24 14:58 | XMS REPORT | Encounter Summary ---
Author Author [facility] Organization [facility] Address Unknown Phone Unavailable Care Team Providers Care Professor/Nurse Anesthetist Name Role Phone Shahram Mccalulm MD PCP Unavailable Claus Couch MD PCP Encounter Details Care Team Description Date Type Department Shahram Mccallum MD NO ADDRESS ON FILE 06/10/1999 Outpatient [facility] Consol idated Historical [facility] [address] [place] [address] Social History Date Tobacco Use Types Packs/Day [...]
--- OUTSIDE RECORDS SUMMARY | 2020-03-24 14:58 | XMS REPORT | Encounter Summary ---
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
--- OUTSIDE RECORDS SUMMARY | 2020-03-24 14:58 | XMS REPORT | Encounter Summary ---
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
--- OUTSIDE RECORDS SUMMARY | 2020-03-24 14:58 | XMS REPORT | Encounter Summary ---
Author Author [facility] Organization [facility] Address Unknown Phone Unavailable Care Team Providers Care Business Job Titles Name Role Phone Shahram Mccallum MD PCP Unavailable Claus Couch MD PCP Encounter Details Care Team Description Date Type Department Shahram Mccallum MD NO ADDRESS ON FILE Head injury, unspecified (Primary Dx) 10/25/1999 Outpatient Historical Social History Date Tobacco Use [...] as of this encounter Visit Diagnoses Diagnosis Head injury, unspecified - Primary documented in this encounter
--- OUTSIDE RECORDS SUMMARY | 2020-03-24 14:58 | XMS REPORT | Encounter Summary ---
Author Author [facility] Organization [facility] Address Unknown Phone Unavailable Care Team Providers Care Machine Shop Repair Technician Name Role Phone Shahram Mccallum MD PCP Unavailable Claus Couch MD PCP Encounter Details Care Team Description Date Type Department Shahram Mccallum MD NO ADDRESS ON FILE Routine medical exam (Primary Dx) 07/08/1999 Outpatient [facility] Consol idated Historical [facility] [address] [place] [address] Social History Date Tobacco Use Types Packs/Day [...]
--- OUTSIDE RECORDS SUMMARY | 2020-03-24 14:58 | XMS REPORT | Encounter Summary ---
Author Author [facility] Organization [facility] Address Unknown Phone Unavailable Care Team Providers Care Lathe Spotter Name Role Phone Shahram Mccallum MD PCP Unavailable Claus Couch MD PCP Encounter Details Care Team Description Date Type Department Jr Walter Pickard DO [address] [place] [address] Obstructive chronic bronchitis with exac erbation (Primary Dx) 02/26/2000 Outpatient [facility] Consol idated Historical [address] [address] Social History Date Tobacco Use Types Packs/Day [...]
--- OUTSIDE RECORDS SUMMARY | 2020-03-24 14:58 | XMS REPORT | Encounter Summary ---
Author Author [facility] Organization [facility] Address Unknown Phone Unavailable Care Team Providers Care Waste Paper Hammermill Operator Name Role Phone Shahram Mccallum MD PCP Unavailable Claus Couch MD PCP Encounter Details Care Team Description Date Type Department Shahram Mccallum MD NO ADDRESS ON FILE Chest pain, unspecified (Primary Dx) 04/26/2000 Outpatient [facility] Cardiopulmonary [address] [place] [address] Social History Date Tobacco Use Types Packs/Day [...]
--- OUTSIDE RECORDS SUMMARY | 2020-03-24 14:58 | XMS REPORT | Encounter Summary ---
Author Author [facility] Organization [facility] Address Unknown Phone Unavailable Care Team Providers Care Electronic Warfare Technical Name Role Phone Shahram Mccallum MD PCP Unavailable Claus Couch MD PCP Encounter Details Care Team Description Date Type Department Shahram Mccallum MD NO ADDRESS ON FILE Face, neck, and scalp, except eye, abras ion or friction burn, without mention of infection (Primary Dx) 11/13/1999 Outpatient HIS [facility] Historical Social History Date Tobacco Use Types Packs/Day Years Used Never Assessed Sex Assigned at Date Recorded Not on file Industry Job Start Date Occupation Not on file Not on file Not on file Travel End Travel History Travel Start No recent travel history available. documented as of this encounter Plan of Treatment Not on filedocumented as of this encounter Visit Diagnoses Diagnosis Face, neck, and scalp, except eye, monica moira or friction burn, without mention of infection - Primary documented in this encounter
--- OUTSIDE RECORDS SUMMARY | 2020-03-24 14:58 | XMS REPORT | Encounter Summary ---
Author Author [facility] Organization [facility] Address Unknown Phone Unavailable Care Team Providers Care Cobbler Apprentice Name Role Phone Shahram Mccallum MD PCP Unavailable Claus Couch MD PCP Encounter Details Care Team Description Date Type Department Shahram Mccallum MD NO ADDRESS ON FILE 01/07/2000 Outpatient [facility] Laboratory Services [address] [address] Social History Date Tobacco Use [...]
--- OUTSIDE RECORDS SUMMARY | 2020-03-24 14:58 | XMS REPORT | Encounter Summary ---
Author Author [facility] Organization [facility] Address Unknown Phone Unavailable Care Team Providers Care Geomorphologist Name Role Phone Shahram Mccallum MD PCP Unavailable Claus Couch MD PCP Encounter Details Care Team Description Date Type Department Isaiah Andres Fletcher, [address] [place] [address] Pressure ulcer (Primary Dx) 03/19/2000 Outpatient [facility] Historical Social History Date Tobacco [...] this encounter Visit Diagnoses Diagnosis Pressure ulcer - Primary documented in this encounter
--- OUTSIDE RECORDS SUMMARY | 2020-03-24 14:58 | XMS REPORT | Encounter Summary ---
Author Author [facility] Organization [facility] Address Unknown Phone Unavailable Care Team Providers Care Letterer Name Role Phone Shahram Mccallum MD PCP Unavailable Claus Couch MD PCP Encounter Details Care Team Description Date Type Department Shahram Mccallum MD NO ADDRESS ON FILE Other postoperative infection (Primary D x) 03/12/2000 Inpatient Historical Social History Date Tobacco Use [...]
--- OUTSIDE RECORDS SUMMARY | 2020-03-24 14:58 | XMS REPORT | Encounter Summary ---
Author Author [facility] Organization [facility] Address Unknown Phone Unavailable Care Team Providers Care Cable Armorer Operator Name Role Phone Shahram Mccallum MD PCP Unavailable Claus Couch MD PCP Encounter Details Care Team Description Date Type Department Shahram Mccallum MD NO ADDRESS ON FILE Other postoperative infection (Primary D x) 03/07/2000 Inpatient Historical Social History Date Tobacco Use [...]
--- OUTSIDE RECORDS SUMMARY | 2020-03-24 14:58 | XMS REPORT | Encounter Summary ---
Author Author [facility] Organization [facility] Address Unknown Phone Unavailable Care Team Providers Care Ham Doctor Name Role Phone Shahram Mccallum MD PCP Unavailable Claus Couch MD PCP Encounter Details Care Team Description Date Type Department Isaiah Andres Fletcher, [address] [place] [address] Osteomyelitis NOS-ankle (Primary Dx) 03/24/2000 Outpatient Historical Social History Date Tobacco Use [...]
--- OUTSIDE RECORDS SUMMARY | 2020-03-24 14:58 | XMS REPORT | Encounter Summary ---
Author Author [facility] Organization [facility] Address Unknown Phone Unavailable Care Team Providers Care Dye Box Operator Name Role Phone Shahram Mccallum MD PCP Unavailable Claus Couch MD PCP Encounter Details Care Team Description Date Type Department Andres Colon DO [address] [place] [address] Ingrowing nail (Primary Dx) 03/01/2000 Outpatient Historical Social History Date Tobacco Use [...] as of this encounter Visit Diagnoses Diagnosis Ingrowing nail - Primary documented in this encounter
--- OUTSIDE RECORDS SUMMARY | 2020-03-24 14:58 | XMS REPORT | Encounter Summary ---
Author Author [facility] Organization [facility] Address Unknown Phone Unavailable Care Team Providers Care Maintenance Porter Name Role Phone Shahram Mccallum MD PCP Unavailable Claus Couch MD PCP Encounter Details Care Team Description Date Type Department Andres Colon, [address] [place] [address] Ingrowing nail (Primary Dx) 02/25/2000 Outpatient HIS [facility] Historical Social History Date Tobacco Use [...]
--- OUTSIDE RECORDS SUMMARY | 2020-03-24 14:58 | XMS REPORT | Encounter Summary ---
Author Author [facility] Organization [facility] Address Unknown Phone Unavailable Care Team Providers Care Ground Equipment Mechanic Name Role Phone Shahram Mccallum MD PCP Unavailable Claus Couch MD PCP Encounter Details Care Team Description Date Type Department ColonAndres, [address] [place] [address] Ulcer of lower limbs, except pressure ul cer (Primary Dx) 03/22/2000 Outpatient HIS [facility] Historical Social History Date Tobacco [...]
--- OUTSIDE RECORDS SUMMARY | 2020-03-24 14:58 | XMS REPORT | Encounter Summary ---
Author Author [facility] Organization [facility] Address Unknown Phone Unavailable Care Team Providers Care Programmable Logic Controller Assembler Name Role Phone Shahram Mccallum MD PCP Unavailable Claus Couch MD PCP Encounter Details Care Team Description Date Type Department Shahram Mccallum MD NO ADDRESS ON FILE Coronary atherosclerosis of unspecified type of vessel, alturas or graft (Primary Dx) 04/30/2000 Inpatient Historical Social History Date Tobacco Use [...] Coronary atherosclerosis of unspecified type of vessel, alturas or graft - Primary documented in this encounter
--- OUTSIDE RECORDS SUMMARY | 2020-03-24 14:58 | XMS REPORT | Encounter Summary ---
Author Author [facility] Organization [facility] Address Unknown Phone Unavailable Care Team Providers Care Milk Handler Name Role Phone Shahram Mccallum MD PCP Unavailable Claus Couch MD PCP Encounter Details Care Team Description Date Type Department ColonAndres, [address] [place] [address] Ulcer of lower limbs, except pressure ul cer (Primary Dx) 05/10/2000 Outpatient HIS [facility] Historical Social History Date Tobacco Use Types [...]
--- OUTSIDE RECORDS SUMMARY | 2020-03-24 14:58 | XMS REPORT | Encounter Summary ---
Author Author [facility] Organization [facility] Address Unknown Phone Unavailable Care Team Providers Care Snow Ranger Name Role Phone Shaharm Mccallum MD PCP Unavailable Calus Couch MD PCP Encounter Details Care Team Description Date Type Department Shahram Mccallum MD NO ADDRESS ON FILE Other convulsions (Primary Dx) 06/10/1999 Outpatient [facility] Consol idated Historical [facility] [address] [place] [address] Social History Date Tobacco Use Types Packs/Day [...]
--- OUTSIDE RECORDS SUMMARY | 2020-03-24 14:58 | XMS REPORT | Encounter Summary ---
Author Author [facility] Organization [facility] Address Unknown Phone Unavailable Care Team Providers Care Power Reactor Operator Name Role Phone Shahram Mccallum MD PCP Unavailable Claus Couch MD PCP Encounter Details Care Team Description Date Type Department Colon Andres Fletcher, [address] [place] [address] Osteomyelitis NOS-ankle (Primary Dx) 04/01/[address] [facility] Historical Social History Date Tobacco Use [...]
--- OUTSIDE RECORDS SUMMARY | 2020-03-24 14:58 | XMS REPORT | Encounter Summary ---
Author Author [facility] Organization [facility] Address Unknown Phone Unavailable Care Team Providers Care All Source Analyst Name Role Phone Shahram Mccallum MD PCP Unavailable Claus Couch MD PCP Encounter Details Care Team Description Date Type Department Shahram Mccallum MD NO ADDRESS ON FILE Angina pectoris NEC/NOS (Primary Dx) 05/10/2000 Outpatient [facility] Consol idated Historical [facility] [address] [place] [address] Social History Date Tobacco Use Types Packs/Day [...]
--- OUTSIDE RECORDS SUMMARY | 2020-03-24 14:58 | XMS REPORT | Encounter Summary ---
Author Author [facility] Organization [facility] Address Unknown Phone Unavailable Care Team Providers Care Call Worker Name Role Phone Shahram Mccallum MD PCP Unavailable Claus Couch MD PCP Encounter Details Care Team Description Date Type Department Jr Walter Pickard DO [address] [place] [address] Blisters with epidermal loss due to burn (second degree) of unspecified site of hand(944.20) (Primary Dx) 05/05/1999 Outpatient [facility] Laboratory Services [address] [address] Social History Date Tobacco Use [...] as of this encounter Visit Diagnoses Diagnosis Blisters with epidermal loss due to bur n (second degree) of unspecified site of hand(944.20) - Primary Blisters with epidermal loss due to bur n (second degree) of unspecified site of hand documented in this encounter
--- OUTSIDE RECORDS SUMMARY | 2020-03-24 14:58 | XMS REPORT | Encounter Summary ---
Author Author [facility] Organization [facility] Address Unknown Phone Unavailable Care Team Providers Care Decorating And Assembly Supervisor Name Role Phone Shahram Mccallum MD PCP Unavailable Claus Couch MD PCP Encounter Details Care Team Description Date Type Department Jr Walter Pickard, [address] [place] [address] Chest pain, unspecified (Primary Dx) 04/30/2000 Outpatient [facility] [address] [place] [address] Social History Date Tobacco Use [...]
--- OUTSIDE RECORDS SUMMARY | 2020-03-24 14:58 | XMS REPORT | Encounter Summary ---
Author Author [facility] Organization [facility] Address Unknown Phone Unavailable Care Team Providers Care Data Governance Consultant Name Role Phone Shahram Mccallum MD PCP Unavailable Claus Couch MD PCP Encounter Details Care Team Description Date Type Department ColonAndres, [address] [place] [address] Non-healing surg wound (Primary Dx) 03/24/2000 Outpatient [facility] Historical [address] [place] [address] Social History Date Tobacco Use Types Packs/Day [...]
--- OUTSIDE RECORDS SUMMARY | 2020-03-24 14:58 | XMS REPORT | Encounter Summary ---
Author Author [facility] Organization [facility] Address Unknown Phone Unavailable Care Team Providers Care Quality Assurance Manager Name Role Phone Shahram Mccallum MD PCP Unavailable Claus Couch MD PCP Encounter Details Care Team Description Date Type Department Shahram Mccallum MD NO ADDRESS ON FILE Chest pain, unspecified (Primary Dx) 05/04/2000 Outpatient [facility] [address] [place] [address] Social History Date Tobacco Use Types Packs/Day [...]
--- OUTSIDE RECORDS SUMMARY | 2020-03-24 14:58 | XMS REPORT | Encounter Summary ---
Author Author [facility] Organization [facility] Address Unknown Phone Unavailable Care Team Providers Care Bus Assistant Name Role Phone Shahram Mccallum MD PCP Unavailable Claus Couch MD PCP Encounter Details Care Team Description Date Type Department Shahram Mccallum MD NO ADDRESS ON FILE 02/26/2000 Outpatient [facility] Laboratory Services [address] [address] Social History Date Tobacco Use [...]
--- OUTSIDE RECORDS SUMMARY | 2020-03-24 14:58 | XMS REPORT | Encounter Summary ---
Author Author [facility] Organization [facility] Address Unknown Phone Unavailable Care Team Providers Care Cleaning Machine Operator Name Role Phone Shahram Mccallum MD PCP Unavailable Claus Couch MD PCP Encounter Details Care Team Description Date Type Department Jr Walter Pickard DO [address] [place] [address] Chest pain, unspecified (Primary Dx) 06/02/2000 Emergency [facility] Emergency Department [address] [phone] Social History Date Tobacco Use Types Packs/Day [...]
--- OUTSIDE RECORDS SUMMARY | 2020-03-24 14:58 | XMS REPORT | Encounter Summary ---
Author Author [facility] Organization [facility] Address Unknown Phone Unavailable Care Team Providers Care Gusset Folder Name Role Phone Shahram Mccallum MD PCP Unavailable Claus Couch MD PCP Encounter Details Care Team Description Date Type Department Shahram Mccallum MD NO ADDRESS ON FILE Head injury, unspecified (Primary Dx) 10/25/1999 Outpatient [facility] [address] [place] [address] Social History Date Tobacco Use Types Packs/Day [...]
--- OUTSIDE RECORDS SUMMARY | 2020-03-24 14:59 | XMS REPORT | Encounter Summary ---
Author Author [facility] Organization [facility] Address Unknown Phone Unavailable Care Team Providers Care Long Term Care Administrator Name Role Phone Shahram Mccallum MD PCP Unavailable Claus Couch MD PCP Encounter Details Care Team Description Date Type Department Wally Nelson [phone] 07/11/1997 Outpatient Historical Social History Date Tobacco Use [...]
--- OUTSIDE RECORDS SUMMARY | 2020-03-24 14:59 | XMS REPORT | Encounter Summary ---
Author Author [facility] Organization [facility] Address Unknown Phone Unavailable Care Team Providers Care Product Lead Name Role Phone Shahram Mccallum MD PCP Unavailable Claus Couch MD PCP Encounter Details Care Team Description Date Type Department Heath Julien ARNP [address] [place] [address] Other convulsions (Primary Dx) 12/06/1997 Outpatient Historical Social History Date Tobacco Use [...]
--- OUTSIDE RECORDS SUMMARY | 2020-03-24 14:59 | XMS REPORT | Encounter Summary ---
Author Author [facility] Organization [facility] Address Unknown Phone Unavailable Care Team Providers Care Harmonic Analyst Name Role Phone Shahram Mccallum MD PCP Unavailable Claus Couch MD PCP Encounter Details Care Team Description Date Type Department David Otto [phone] Joint pain-forearm (Primary Dx) 03/29/1999 Outpatient Historical Social History Date Tobacco Use [...]
--- OUTSIDE RECORDS SUMMARY | 2020-03-24 14:59 | XMS REPORT | Encounter Summary ---
Author Author [facility] Organization [facility] Address Unknown Phone Unavailable Care Team Providers Care Temper Mill Roller Name Role Phone Shahram Mccallum MD PCP Unavailable Claus Couch MD PCP Encounter Details Care Team Description Date Type Department Heath Julien ARNP [address] [place] [address] Esophagitis (Primary Dx) 01/26/1993 Outpatient Historical Social History Date Tobacco Use [...] as of this encounter Visit Diagnoses Diagnosis Esophagitis - Primary documented in this encounter
--- OUTSIDE RECORDS SUMMARY | 2020-03-24 14:59 | XMS REPORT | Encounter Summary ---
Author Author [facility] Organization [facility] Address Unknown Phone Unavailable Care Team Providers Care Material Attendant Name Role Phone Shahram Mccallum MD PCP Unavailable Claus Couch MD PCP Encounter Details Care Team Description Date Type Department Beck Le MD NO ADDRESS ON FILE Old FB in soft tissue (Primary Dx) 10/11/1992 Outpatient Historical Social History Date Tobacco Use [...] as of this encounter Visit Diagnoses Diagnosis Old FB in soft tissue - Primary Residual foreign body in soft tissue documented in this encounter
--- OUTSIDE RECORDS SUMMARY | 2020-03-24 14:59 | XMS REPORT | Encounter Summary ---
Author Author [facility] Organization [facility] Address Unknown Phone Unavailable Care Team Providers Care Photonics Technician Name Role Phone Shahram Mccallum MD PCP Unavailable Claus Couch MD PCP Encounter Details Care Team Description Date Type Department Contusion of foot (Primary D x) 06/14/1994 Outpatient Historical Social History Date Tobacco Use [...] this encounter Visit Diagnoses Diagnosis Contusion of foot - Primary documented in this encounter
--- OUTSIDE RECORDS SUMMARY | 2020-03-24 14:59 | XMS REPORT | Encounter Summary ---
Author Author [facility] Organization [facility] Address Unknown Phone Unavailable Care Team Providers Care Stem Lead Former Name Role Phone Shahram Mccallum MD PCP Unavailable Claus Couch MD PCP Encounter Details Care Team Description Date Type Department Rene Nash Unspecified otitis media (Primary Dx) 03/02/1992 Outpatient Historical Social History Date Tobacco Use [...] of this encounter Visit Diagnoses Diagnosis Unspecified otitis media - Primary documented in this encounter
--- OUTSIDE RECORDS SUMMARY | 2020-03-24 14:59 | XMS REPORT | Encounter Summary ---
Author Author [facility] Organization [facility] Address Unknown Phone Unavailable Care Team Providers Care Rougher Machine Operator Name Role Phone Shahram Mccallum MD PCP Unavailable Claus Couch MD PCP Encounter Details Care Team Description Date Type Department Heath Julien ARNP [address] [place] [address] Obstructive chronic bronchitis with exac erbation (Primary Dx) 02/11/1998 Inpatient Historical Social History Date Tobacco Use [...]
--- OUTSIDE RECORDS SUMMARY | 2020-03-24 14:59 | XMS REPORT | Encounter Summary ---
Author Author [facility] Organization [facility] Address Unknown Phone Unavailable Care Team Providers Care Shank Archer Name Role Phone Shahram Mccallum MD PCP Unavailable Claus Couch MD PCP Encounter Details Care Team Description Date Type Department Peter Corona MD [address] [place] [id number] 11/22/1998 Outpatient Historical Social History Date Tobacco Use [...]
--- OUTSIDE RECORDS SUMMARY | 2020-03-24 14:59 | XMS REPORT | Encounter Summary ---
Author Author [facility] Organization [facility] Address Unknown Phone Unavailable Care Team Providers Care Community Administrator Name Role Phone Shahram Mccallum MD PCP Unavailable Claus Couch MD PCP Encounter Details Care Team Description Date Type Department Heath Julien ARNP [address] [place] [address] 12/31/1997 Outpatient Historical Social History Date Tobacco Use [...]
--- OUTSIDE RECORDS SUMMARY | 2020-03-24 14:59 | XMS REPORT | Encounter Summary ---
Author Author [facility] Organization [facility] Address Unknown Phone Unavailable Care Team Providers Care Librarian Head Name Role Phone Shahram Mccallum MD PCP Unavailable Claus Couch MD PCP Encounter Details Care Team Description Date Type Department Heath Julien ARNP [address] [place] [address] 11/07/1996 Outpatient Historical Social History Date Tobacco Use [...]
--- OUTSIDE RECORDS SUMMARY | 2020-03-24 14:59 | XMS REPORT | Encounter Summary ---
Author Author [facility] Organization [facility] Address Unknown Phone Unavailable Care Team Providers Care Signal Operator Technical Name Role Phone Shahram Mccallum MD PCP Unavailable Claus Couch MD PCP Encounter Details Care Team Description Date Type Department Roger Heard, DO [address] [place] [address] Acute prostatitis (Primary Dx) 03/30/1992 Outpatient Historical Social History Date Tobacco Use [...] of this encounter Visit Diagnoses Diagnosis Acute prostatitis - Primary documented in this encounter
--- OUTSIDE RECORDS SUMMARY | 2020-03-24 14:59 | XMS REPORT | Encounter Summary ---
Author Author [facility] Organization [facility] Address Unknown Phone Unavailable Care Team Providers Care Mathematics Academic Chair Name Role Phone Shahram Mccallum MD PCP Unavailable Claus Couch MD PCP Encounter Details Care Team Description Date Type Department Jona Sloan Laxmi, DO [address] [place] [address] Redness/discharge of eye (Primary Dx) 08/16/1998 Outpatient Historical Social History Date Tobacco Use [...] as of this encounter Visit Diagnoses Diagnosis Redness/discharge of eye - Primary Redness or discharge of eye documented in this encounter
--- OUTSIDE RECORDS SUMMARY | 2020-03-24 14:59 | XMS REPORT | Encounter Summary ---
Author Author [facility] Organization [facility] Address Unknown Phone Unavailable Care Team Providers Care Finishing Range Feeder Name Role Phone Shahram Mccallum MD PCP Unavailable Claus Couch MD PCP Encounter Details Care Team Description Date Type Department Shahram Mccallum MD NO ADDRESS ON FILE Dysuria (Primary Dx) 03/03/1999 Emergency [facility] Emergency Department [address] [id number] Social History Date Tobacco Use [...] as of this encounter Visit Diagnoses Diagnosis Dysuria - Primary documented in this encounter
--- OUTSIDE RECORDS SUMMARY | 2020-03-24 14:59 | XMS REPORT | Encounter Summary ---
Author Author [facility] Organization [facility] Address Unknown Phone Unavailable Care Team Providers Care Commercial Pest Control Technician Name Role Phone Shahram Mccallum MD PCP Unavailable Claus Couch MD PCP Encounter Details Care Team Description Date Type Department Heath Julien ARNP [address] [place] [address] 08/22/1998 Outpatient Historical Social History Date Tobacco Use [...]
--- OUTSIDE RECORDS SUMMARY | 2020-03-24 14:59 | XMS REPORT | Encounter Summary ---
Author Author [facility] Organization [facility] Address Unknown Phone Unavailable Care Team Providers Care Warning Coordination Meteorologist Name Role Phone Shahram Mccallum MD PCP Unavailable Claus Couch MD PCP Encounter Details Care Team Description Date Type Department Heath Julien ARNP [address] [place] [address] Respiratory malfunction arising from men henrik factors (Primary Dx) 09/12/1995 Outpatient Historical Social History Date Tobacco Use [...] of this encounter Visit Diagnoses Diagnosis Respiratory malfunction arising from me ntal factors - Primary documented in this encounter
--- OUTSIDE RECORDS SUMMARY | 2020-03-24 14:59 | XMS REPORT | Encounter Summary ---
Author Author [facility] Organization [facility] Address Unknown Phone Unavailable Care Team Providers Care Electronic Equipment Maint Tech Name Role Phone Shahram Mccallum MD PCP Unavailable Claus Couch MD PCP Encounter Details Care Team Description Date Type Department Heath Julien ARNP [address] [place] [address] Respiratory abnorm NEC (Primary Dx) 09/12/1995 Outpatient Historical Social History [...]
--- OUTSIDE RECORDS SUMMARY | 2020-03-24 14:59 | XMS REPORT | Encounter Summary ---
Author Author [facility] Organization [facility] Address Unknown Phone Unavailable Care Team Providers Care Larry Operator Name Role Phone Shahram Mccallum MD PCP Unavailable Claus Couch MD PCP Encounter Details Care Team Description Date Type Department Heath Julien ARNP [address] [place] [address] Chronic airway obstruction, not elsewher e classified (Primary Dx) 05/02/1995 Inpatient Historical Social History Date Tobacco Use [...]
--- OUTSIDE RECORDS SUMMARY | 2020-03-24 14:59 | XMS REPORT | Encounter Summary ---
Author Author [facility] Organization [facility] Address Unknown Phone Unavailable Care Team Providers Care Gas Truck Driver Name Role Phone Shahram Mccallum MD PCP Unavailable Claus Couch MD PCP Encounter Details Care Team Description Date Type Department Heath Julien ARNP [address] [place] [address] Hyperventilation (Primary Dx) 12/06/1997 Outpatient Historical Social History [...] as of this encounter Visit Diagnoses Diagnosis Hyperventilation - Primary documented in this encounter
--- OUTSIDE RECORDS SUMMARY | 2020-03-24 14:59 | XMS REPORT | Encounter Summary ---
Author Author [facility] Organization [facility] Address Unknown Phone Unavailable Care Team Providers Care Junior Paralegal Name Role Phone Shahram Mccallum MD PCP Unavailable Claus Couch MD PCP Encounter Details Care Team Description Date Type Department David Otto [phone] Enthesopathy of wrist (Primary Dx) 04/03/1999 Outpatient [facility] Historical Social History Date Tobacco Use Types Packs/Day Years Used Never Assessed Sex Assigned at Date Recorded Not on file Industry Job Start Date Occupation Not on file Not on file Not on file Travel End Travel History Travel Start No recent travel history available. documented as of this encounter Plan of Treatment Not on filedocumented as of this encounter Visit Diagnoses Diagnosis Enthesopathy of wrist - Primary Enthesopathy of wrist and carpus documented in this encounter
--- OUTSIDE RECORDS SUMMARY | 2020-03-24 14:59 | XMS REPORT | Encounter Summary ---
Author Author [facility] Organization [facility] Address Unknown Phone Unavailable Care Team Providers Care Latex Caster Name Role Phone Shahram Mccallum MD PCP Unavailable Claus Couch MD PCP Encounter Details Care Team Description Date Type Department Dizziness and giddiness (Farhana sigrid Dx) 12/26/1995 Outpatient Historical Social History Date Tobacco Use [...] as of this encounter Visit Diagnoses Diagnosis Dizziness and giddiness - Primary documented in this encounter
--- OUTSIDE RECORDS SUMMARY | 2020-03-24 15:01 | XMS REPORT | Continuity of Care Document ---
Author Organization Unknown Address Unknown Phone Unavailable Allergies Active Description Code Type Severity Reaction Onset Reported/Identified Relationship to Patient Clinical Status Yes codeine [id number] Drug Allergy Unknown N/A 03/07/2017 Yes diazepam [id number] Drug Allergy Unknown N/A 03/07/2017 Yes doxycycline [id number] Drug Aller gy Unknown RASH 03/07/2017 Yes phenobarbital [id number] Erich g Allergy Unknown N/A 03/07/2017 Yes piperacillin [id number] Drug Allergy Unknown RASH 03/07/2017 Yes terazosin [id number] Drug Allergy Unknown N/A 03/07/2017 Yes piperacillin [id number] Drug Allergy Unknown RASH, PT HAS RE 03/08/2017 Yes codeine [id number] Drug Allergy Mild N/A 03/09/2017 Yes Penicillins [id number] Drug Aller gy Unknown N/A 04/22/2017 Yes sulfamethoxazole [id number] Drug Allergy Unknown N/A 04/22/2017 Medications There [...] DO Ot I25.10 ATHSCL HEART DISEASE OF [place] CORONARY 03/09/2017 SARY MCCRARY DO, Ot J44.9 [...] MCCRARY DO Ot Y92.[address] IN [facility] NON-INSTITUTIONAL RESI 03/09/2017 SARY MCCRARY DO Ot [...] DO Ot I25.10 ATHSCL HEART DISEASE OF [place] CORONARY 03/10/2017 SARY MCCRARY DO Ot J44.9 CHRONIC OBSTRUCTIVE PULMONARY DISEASE, U 03/10/2017 SARY MCCRARY DO Ot K21.9 GASTRO-ESOPHAGEAL REFLUX DISEASE WITHOUT 03/10/2017 HERMANNSARY JFEFREY DO Ot M19.91 PRIMARY OSTEOARTHRITIS, UNSPECIFIED SITE [...] DO Ot I25.10 ATHSCL HEART DISEASE OF [place] CORONARY 03/10/2017 SARY MCCRARY DO Ot J44.9 [...] DO Ot I25.10 ATHSCL HEART DISEASE OF [place] CORONARY 03/11/2017 SARY MCCRARY DO Ot J44.9 [...] Ot I25.1 0 ATHSCL HEART DISEASE OF [place] CORONARY 03/24/2017 RON KINNEY MD, Ot J44.9 [...] CARLOS Ot I25.10 ATHSCL HEART DISEASE OF [place] CORONARY 04/26/2017 JEVON MCMILLAN CARLOS Ot J44.9 CHRONIC OBSTRUCTIVE PULMONARY DISEASE, U 04/26/2017 JEVON MCMILLAN CARLOS Ot K21.9 GASTRO-ESOPHAGEAL REFLUX DISEASE WITHOUT 04/26/2017 JEVON MCMILLAN CARLOS Ot K59.09 OTHER CONSTIPATION 04/26/2017 JEVON MCMILLAN CARLOS Ot M19.91 PRIMARY OSTEOARTHRITIS, UNSPECIFIED SITE 04/26/2017 JEVON MCMILLAN CARLOS Ot M25.56 1 PAIN IN RIGHT KNEE 04/26/2017 JEOVN MCMILLAN CARLOS Ot M54.6 PAIN IN THORACIC SPINE 04/26/2017 MATT ESCOTO DOI Ot M62.81 MUSCLE WEAKNESS (GENERALIZED) 04/26/2017 ESCOTO DO, CARLOS Ot N31.9 NEUROMUSCULAR DYSFUNCTION OF BLADDER, UN 04/26/2017 JEVON MCMILLAN CARLOS Ot N39.0 URINARY TRACT INFECTION, SITE NOT SPECIF 04/26/2017 JEVON MCMILLAN CARLOS Ot R33.9 RETENTION OF URINE, UNSPECIFIED 04/26/2017 JEVON MCMILLAN CARLOS Ot Z79.84 [employer] (CURRENT) USE OF ORAL HYPOGLYC 04/26/2017 JEVON MCMILLAN CARLOS Ot Z79.89 1 ALF (CURRENT) USE OF OPIATE ANALGE 04/26/2017 JEVON [...] CARLOS Ot I25.10 ATHSCL HEART DISEASE OF [place] CORONARY 04/26/2017 JEVON MCMILLAN CARLOS Ot J44.9 [...] UNSPECIFIED 04/26/2017 JEVON MCMILLAN CARLOS Ot Z79.84 [employer] (CURRENT) USE OF ORAL HYPOGLYC 04/26/2017 JEVON MCMILLAN CARLOS Ot Z79.89 1 [employer] (CURRENT) USE OF OPIATE ANALGE 04/26/2017 JEVON [...] DO Ot I25.10 ATHSCL HEART DISEASE OF [place] CORONARY 04/26/2017 CARLOS ESCOTO DO Ot J44.9 [...] UNSPECIFIED 04/26/2017 CARLOS ESCOTO DO Ot Z79.84 ALF (CURRENT) USE OF ORAL HYPOGLYC 04/26/2017 CARLOS ESCOTO DO Ot Z79.89 1 ALF (CURRENT) USE OF OPIATE ANALGE 04/26/2017 CARLOS [...] DO Ot I25.10 ATHSCL HEART DISEASE OF [place] CORONARY 07/26/2017 CARLOS ESCOTO DO Ot I34.0 [...] DO Ot Y92.[address] [facility] NON-INSTITUT (PRIVATE 07/26/2017 JEVON MCMILLAN CARLOS Ot Z66 DO NOT RESUSCITATE 07/26/2017 MATT ESCOTO DOI Ot Z95.1 PRESENCE OF AORTOCORONARY BYPASS GRAFT 07/26/2017 MATT ESCOTO DOI Ot Z95.5 PRESENCE OF CORONARY ANGIOPLASTY IMPLANT 01/29/2019 THEODORE DO, SYL L Ot E11.9 TYPE 2 DIABETES MELLITUS WITHOUT COMPLIC 01/29/2019 THEDOORE DO, SYL L Ot E78.0 0 PURE [...] Ot I25.1 0 ATHSCL HEART DISEASE OF [place] CORONARY 01/29/2019 THEODORE DO, SYL L Ot [...] THEODORE DO, SYL L Ot Z79.0 2 ALF (CURRENT) USE OF ANTITHROMBOTI 01/29/2019 THEODORE DO, SYL L Ot Z79.5 1 ALF (CURRENT) USE OF INHALED STERO 01/29/2019 THEODORE DO, SYL L Ot Z79.8 2 [employer] (CURRENT) USE OF ASPIRIN 01/29/2019 THEODORE DO, [...] Ot E78.0 0 PURE HYPERCHOLESTEROLEMIA, UNSPECIFIED 01/31/2019 TEHODORE DO, SYL L Ot F31.9 BIPOLAR DISORDER, [...] Ot I25.1 0 ATHSCL HEART DISEASE OF [place] CORONARY 01/31/2019 THEOODRE DO, SYL L Ot J43.9 EMPHYSEMA, UNSPECIFIED 01/31/2019 THEODORE DO, SYL L Ot K21.9 GASTRO-ESOPHAGEAL REFLUX DISEASE WITHOUT 01/31/2019 THEODORE DO, SYL L Ot R07.8 9 OTHER CHEST PAIN 01/31/2019 THEODORE DO, SYL L Ot R79.8 9 OTHER SPECIFIED ABNORMAL FINDINGS OF BLO 01/31/2019 THEODORE DO, YSL L Ot Z77.2 2 CNTCT W AND EXPSR TO ENVIRON TOBACCO SMO 01/31/2019 THEODORE DO, SYL L Ot Z79.0 2 ALF (CURRENT) USE OF ANTITHROMBOTI 01/31/2019 THEODORE DO, SYL L Ot Z79.5 1 ALF (CURRENT) USE OF INHALED STERO 01/31/2019 THEODORE DO, SYL L Ot Z79.8 2 [employer] (CURRENT) USE OF ASPIRIN 01/31/2019 THEODORE DO, SYL L Ot Z87.1 9 PERSONAL HISTORY OF OTHER DISEASES OF TH 01/31/2019 THEODORE DO, SYL L Ot Z87.4 42 PERSONAL HISTORY OF URINARY CALCULI 01/31/2019 THEODORE DO, SYL L Ot Z87.4 48 PERSONAL HISTORY OF OTHER DISEASES OF UR 01/31/2019 THEODORE DO, SYL L Ot Z88.0 ALLERGY STATUS TO PENICILLIN 01/31/2019 THEDOORE DO, YSL L Ot Z88.1 ALLERGY STATUS TO OTHER [...] DO, Ot I25.10 ATHSCL HEART DISEASE OF [place] CORONARY 06/05/2019 CHICHI CARDENAS DO, Ot J43.9 [...] ENCOUNTER 06/05/2019 CHICHI CARDENAS DO, Ot Y92.[address] [facility] NON-INSTITUT (PRIVATE 06/05/2019 CHICHI CARDENAS DO, Ot Z79.02 [employer] (CURRENT) USE OF ANTITHROMBOTI 06/05/2019 CHICHI CARDENAS DO, Ot 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 06/05/2019 CHICHI CARDENAS DO, Ot Z79.82 ALF (CURRENT) USE OF ASPIRIN 06/05/2019 CHICHI CARDENAS [...] DO, Ot I25.10 ATHSCL HEART DISEASE OF [place] CORONARY 06/07/2019 CHICHI CARDENAS DO, Ot J43.9 [...] ENCOUNTER 06/07/2019 CHICHI CARDENAS DO, Ot Y92.[address] [facility] [address] IN [facility] NON-INSTITUT (PRIVATE 06/07/2019 CHICHI CARDENAS DO, Ot Z79.02 [employer] (CURRENT) USE OF ANTITHROMBOTI 06/07/2019 CHICHI CARDENAS DO, Ot Z79.51 ALF (CURRENT) USE OF INHALED STERO 06/07/2019 CHICHI CARDENAS DO, Ot Z79.82 [employer] (CURRENT) USE OF ASPIRIN 06/07/2019 CHICHI CARDENAS [...] 12/19/2019 LOUANN COREY MD Ot Z79.899 OTHER ALF (CURRENT) DRUG THERAPY 12/20/2019 ALBERT KNOTT MD Ot N40.1 BENIGN PROSTATIC HYPERPLASIA WITH LOWER 12/20/2019 LOUANN COREY MD Ot Z01.89 ENCOUNTER FOR OTHER SPECIFIED SPECIAL EX 12/20/2019 LOUANN COREY MD Ot Z79.899 OTHER ALF (CURRENT) DRUG THERAPY 12/24/2019 LOUANN COREY MD Ot Z01.89 ENCOUNTER FOR OTHER SPECIFIED SPECIAL EX 12/24/2019 LOUANN COREY MD Ot Z79.899 OTHER [employer] (CURRENT) DRUG THERAPY 01/26/2020 ALBERT KNOTT MD Ot N40.1 BENIGN PROSTATIC HYPERPLASIA WITH LOWER 01/26/2020 LEORA TINSLEY, LOUANN Coyle Ot Z01.89 ENCOUNTER FOR OTHER SPECIFIED SPECIAL EX 01/26/2020 LOUANN COREY MD Ot Z79.899 OTHER ALF (CURRENT) DRUG THERAPY 01/26/2020 ISABELLA DEAL MD Ot E11.9 TYPE 2 DIABETES MELLITUS WITHOUT COMPLIC 01/26/2020 ISABELLA DEAL MD Ot E78.00 PURE HYPERCHOLESTEROLEMIA, UNSPECIFIED 01/26/2020 ISABELLA DEAL MD Ot E87.1 HYPO-OSMOLALITY AND HYPONATREMIA 01/26/2020 ISABELLA DEAL MD Ot F17.210 NICOTINE DEPENDENCE, CIGARETTES, UNCOMPL 01/26/2020 ISABELLA DEAL MD Ot F31.9 BIPOLAR DISORDER, UNSPECIFIED 01/26/2020 ISABELLA DEAL MD Ot F41.9 ANXIETY DISORDER, UNSPECIFIED 01/26/2020 ISABELLA DEAL MD Ot G40.909 EPILEPSY, UNSP, NOT INTRACTABLE, WITHOUT 01/26/2020 ISABELLA DEAL MD Ot G43.909 MIGRAINE, UNSP, NOT INTRACTABLE, WITHOUT 01/26/2020 ISABELLA DEAL MD Ot I1 0 ESSENTIAL (PRIMARY) HYPERTENSION 01/26/2020 ISABELLA DEAL MD Ot I25.10 ATHSCL HEART DISEASE OF [place] CORONARY 01/26/2020 ISABELLA DEAL MD Ot J43.9 EMPHYSEMA, UNSPECIFIED 01/26/2020 ISABELLA DEAL MD Ot J45.909 UNSPECIFIED ASTHMA, UNCOMPLICATED 01/26/2020 ISABELLA DEAL MD Ot K21.9 GASTRO-ESOPHAGEAL REFLUX DISEASE WITHOUT 01/26/2020 ISABELLA DEAL MD Ot N39.0 URINARY TRACT INFECTION, SITE NOT SPECIF 01/26/2020 ISABELLA DEAL MD Ot R56.9 UNSPECIFIED CONVULSIONS 01/26/2020 ISABELLA DEAL MD Ot Z79.02 [employer] (CURRENT) USE OF ANTITHROMBOTI 01/26/2020 ISABELLA DEAL MD Ot Z88.0 ALLERGY STATUS TO PENICILLIN 01/26/2020 ISABELLA DEAL MD Ot Z88.1 ALLERGY STATUS TO OTHER ANTIBIOTIC AGENT 01/26/2020 ISABELLA DEAL MD Ot Z88.2 ALLERGY STATUS TO SULFONAMIDES STATUS 01/26/2020 ISABELLA DEAL MD Ot Z88.8 ALLERGY STATUS TO OTH DRUG/MEDS/BIOL SUB 01/26/2020 ISABELLA DEAL MD Ot Z95.1 PRESENCE OF AORTOCORONARY BYPASS GRAFT 01/26/2020 ALBERT KNOTT MD Ot N40.1 BENIGN PROSTATIC HYPERPLASIA WITH LOWER 01/26/2020 LOUANN COREY MD Ot Z01.89 ENCOUNTER FOR OTHER SPECIFIED SPECIAL EX 01/26/2020 LOUANN COREY MD Ot Z79.899 OTHER [employer]ORY TE[employer]ER (CURRENT) DRUG THERAPY 01/26/2020 ALBERT KNOTT MD Ot N40.1 BENIGN PROSTATIC HYPERPLASIA WITH LOWER 01/26/2020 LOUANN COREY MD Ot Z01.89 ENCOUNTER FOR OTHER SPECIFIED SPECIAL EX 01/26/2020 LOUANN COREY MD Ot Z79.899 OTHER ALF (CURRENT) DRUG THERAPY 01/31/2020 ISABELLA DEAL MD [...] MD Ot I25.10 ATHSCL HEART DISEASE OF [place] CORONARY 01/31/2020 ISABELLA DEAL MD Ot J43.9 EMPHYSEMA, UNSPECIFIED 01/31/2020 ISABELLA DEAL MD Ot J45.909 UNSPECIFIED ASTHMA, UNCOMPLICATED 01/31/2020 ISABELLA DEAL MD Ot K21.9 GASTRO-ESOPHAGEAL REFLUX DISEASE WITHOUT 01/31/2020 ISABELLA DEAL MD Ot N39.0 URINARY TRACT INFECTION, SITE NOT SPECIF 01/31/2020 ISABELLA DEAL MD Ot R56.9 UNSPECIFIED CONVULSIONS 01/31/2020 ISABELLA DEAL MD Ot Z79.02 [employer]ORY TE[employer]ER (CURRENT) USE OF ANTITHROMBOTI 01/31/2020 SAY TINSLEY, ISABELLA Cid Ot Z88.0 ALLERGY STATUS TO PENICILLIN 01/31/2020 ISABELLA DEAL MD Ot Z88.1 ALLERGY STATUS TO OTHER ANTIBIOTIC AGENT 01/31/2020 ISABELLA DEAL MD Ot Z88.2 ALLERGY STATUS TO SULFONAMIDES STATUS 01/31/2020 ISABELLA DEAL MD Ot Z88.8 ALLERGY STATUS TO OTH DRUG/MEDS/BIOL SUB 01/31/2020 ISABELLA DEAL MD Ot Z95.1 PRESENCE OF AORTOCORONARY BYPASS GRAFT 02/16/2020 ALBERT KNOTT MD Ot N40.1 BENIGN PROSTATIC HYPERPLASIA WITH LOWER 02/16/2020 LOUANN COREY MD Ot Z01.89 ENCOUNTER FOR OTHER SPECIFIED SPECIAL EX 02/16/2020 LOUANN COREY MD, Ot Z79.899 OTHER [employer]ORY TE[employer]ER (CURRENT) DRUG THERAPY 02/16/2020 ALBERT KNOTT MD Ot N40.1 BENIGN PROSTATIC HYPERPLASIA WITH LOWER 02/16/2020 LOUANN COREY MD Ot Z01.89 ENCOUNTER FOR OTHER SPECIFIED SPECIAL EX 02/16/2020 LOUANN COREY MD, Ot Z79.899 OTHER [employer]ISTORY TE[employer]ER (CURRENT) DRUG THERAPY 02/16/2020 SIRIA PAIGE DO Ot E11 .9 TYPE 2 DIABETES MELLITUS WITHOUT COMPLIC 02/16/2020 SIRIA PAIGE DO Ot E78.00 PURE HYPERCHOLESTEROLEMIA, UNSPECIFIED 02/16/2020 SIRIA PAIGE DO, Ot F31 .9 BIPOLAR DISORDER, UNSPECIFIED 02/16/2020 SIRIA PAIGE DO, Ot F41 .9 ANXIETY DISORDER, UNSPECIFIED 02/16/2020 SIRIA PAIGE DO, Ot G40.909 EPILEPSY, UNSP, NOT INTRACTABLE, WITHOUT 02/16/2020 SIRIA PAIGE DO Ot I10 ESSENTIAL (PRIMARY) HYPERTENSION 02/16/2020 SIRIA PAIGE DO, Ot I25.10 ATHSCL HEART DISEASE OF [place] CORONARY 02/16/2020 SIRIA PAIGE DO, Ot J43 .9 EMPHYSEMA, UNSPECIFIED 02/16/2020 SIRIA PAIGE DO Ot K21 .9 GASTRO-ESOPHAGEAL REFLUX DISEASE WITHOUT 02/16/2020 SIRIA PAIGE DO, Ot R31 .9 HEMATURIA, UNSPECIFIED 02/16/2020 SIRIA PAIGE DO, Ot Z77.22 CNTCT W AND EXPSR TO ENVIRON TOBACCO SMO 02/16/2020 ROYAL SIRIA Ot Z79.02 [employer]ISTORY TE[employer]ER (CURRENT) USE OF ANTITHROMBOTI 02/16/2020 [facility] Ot 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 02/16/2020 [facility] [place] Ot Z79.82 ALF (CURRENT) USE OF ASPIRIN 02/16/2020 [facility] [place] Ot Z88 .0 ALLERGY STATUS TO PENICILLIN 02/16/2020 [facility] [place] Ot Z88 .1 ALLERGY STATUS TO OTHER ANTIBIOTIC AGENT 02/16/2020 [facility] [place] Ot Z88 .2 ALLERGY STATUS TO SULFONAMIDES STATUS 02/16/2020 [facility] Ot Z95 .1 PRESENCE OF AORTOCORONARY BYPASS GRAFT 02/16/2020 [facility] Ot Z95 .5 PRESENCE OF CORONARY ANGIOPLASTY IMPLANT 02/16/2020 ALBERT KNOTT MD Ot N40.1 BENIGN PROSTATIC HYPERPLASIA WITH LOWER 02/16/2020 LOUANN COREY MD Ot Z01.89 ENCOUNTER FOR OTHER SPECIFIED SPECIAL EX 02/16/2020 LOUANN COREY MD Ot Z79.899 OTHER ALF (CURRENT) DRUG THERAPY 02/17/2020 ALBERT KNOTT MD Ot N40.1 BENIGN PROSTATIC HYPERPLASIA WITH LOWER 02/17/2020 LOUANN COREY MD Ot Z01.89 ENCOUNTER FOR OTHER SPECIFIED SPECIAL EX 02/17/2020 LOUANN COREY MD Ot Z79.899 OTHER ALF (CURRENT) DRUG THERAPY 02/17/2020 ALBERT KNOTT MD Ot N40.1 BENIGN PROSTATIC HYPERPLASIA WITH LOWER 02/17/2020 LOUANN COREY MD Ot Z01.89 ENCOUNTER FOR OTHER SPECIFIED SPECIAL EX 02/17/2020 LOUANN COREY MD Ot Z79.899 OTHER [employer] HISTORY TE[employer]ER (CURRENT) DRUG THERAPY 02/17/2020 ALBERT KNOTT MD Ot N40.1 BENIGN PROSTATIC HYPERPLASIA WITH LOWER 02/17/2020 LOUANN COREY MD Ot Z01.89 ENCOUNTER FOR OTHER SPECIFIED SPECIAL EX 02/17/2020 LOUANN COREY MD Ot Z79.899 OTHER ALF (CURRENT) DRUG THERAPY 02/17/2020 ALBERT KNOTT MD Ot N40.1 BENIGN PROSTATIC HYPERPLASIA WITH LOWER 02/17/2020 LOUANN COREY MD Ot Z01.89 ENCOUNTER FOR OTHER SPECIFIED SPECIAL EX 02/17/2020 LOUANN COREY MD, Ot Z79.899 OTHER ALF (CURRENT) DRUG THERAPY 02/17/2020 ALBERT KNOTT MD Ot N40.1 BENIGN PROSTATIC HYPERPLASIA WITH LOWER 02/17/2020 LOUANN COREY MD Ot Z01.89 ENCOUNTER FOR OTHER SPECIFIED SPECIAL EX 02/17/2020 LOUANN COREY MD, Ot Z79.899 OTHER ALF (CURRENT) DRUG THERAPY 02/19/2020 SIRIA PAIGE DO, Ot E11 .9 TYPE 2 DIABETES MELLITUS WITHOUT COMPLIC 02/19/2020 SIRIA PAIGE DO, Ot E78.00 PURE HYPERCHOLESTEROLEMIA, UNSPECIFIED 02/19/2020 SIRIA PAIGE DO, Ot F31 .9 BIPOLAR DISORDER, UNSPECIFIED 02/19/2020 SIRIA PAIGE DO, Ot F41 .9 ANXIETY DISORDER, UNSPECIFIED 02/19/2020 SIRIA PAIGE DO, Ot G40.909 EPILEPSY, UNSP, NOT INTRACTABLE, WITHOUT 02/19/2020 SRIIA PAIGE DO, Ot I10 ESSENTIAL (PRIMARY) HYPERTENSION 02/19/2020 SIRIA PAIGE DO, Ot I25.10 ATHSCL HEART DISEASE OF [place] CORONARY 02/19/2020 SIRIA PAIGE DO, Ot J43 .9 EMPHYSEMA, UNSPECIFIED 02/19/2020 SIRIA PAIGE DO, Ot K21 .9 GASTRO-ESOPHAGEAL REFLUX DISEASE WITHOUT 02/19/2020 SIRIA PAIGE DO, Ot R31 .9 HEMATURIA, UNSPECIFIED 02/19/2020 SIRAI PAIGE DO, Ot Z77.22 CNTCT W AND EXPSR TO ENVIRON TOBACCO SMO 02/19/2020 SIRIA PAIGE DO, Ot Z79.02 ALF (CURRENT) USE OF ANTITHROMBOTI 02/19/2020 SIRIA PAIGE DO, Ot 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 02/19/2020 SIRIA PAIGE DO, Ot Z79.82 ALF (CURRENT) USE OF ASPIRIN 02/19/2020 SIRIA PAIGE DO, Ot Z88 .0 ALLERGY STATUS TO PENICILLIN 02/19/2020 SIRIA PAIGE DO Ot Z88 .1 ALLERGY STATUS TO OTHER ANTIBIOTIC AGENT 02/19/2020 SIRIA PAIGE DO Ot Z88 .2 ALLERGY STATUS TO SULFONAMIDES STATUS 02/19/2020 SIRIA PAIGE DO Ot Z95 .1 PRESENCE OF AORTOCORONARY BYPASS GRAFT 02/19/2020 SIRIA PAIGE DO Ot Z95 .5 PRESENCE OF CORONARY ANGIOPLASTY IMPLANT 02/19/2020 LOTUS FREIRE MD Ot E11. 9 TYPE 2 DIABETES MELLITUS WITHOUT COMPLIC 02/19/2020 TANI TINSLEY, LOTUS Montelongo Ot E78. 00 PURE HYPERCHOLESTEROLEMIA, UNSPECIFIED 02/19/2020 LOTUS FREIRE MD Ot F17.210 NICOTINE DEPENDENCE, CIGARETTES, UNCOMPL 02/19/2020 LOTUS FREIRE MD Ot F31. 9 BIPOLAR DISORDER, UNSPECIFIED 02/19/2020 LOTUS FREIRE MD Ot F41. 9 ANXIETY DISORDER, UNSPECIFIED 02/19/2020 LOTUS FREIRE MD Ot G40.909 EPILEPSY, UNSP, NOT INTRACTABLE, WITHOUT 02/19/2020 LOTUS FREIRE MD Ot I10 ESSENTIAL (PRIMARY) HYPERTENSION 02/19/2020 LOTUS FREIRE MD Ot I25. 10 ATHSCL HEART DISEASE OF [place] CORONARY 02/19/2020 LOTUS FREIRE MD Ot K21. 9 GASTRO-ESOPHAGEAL REFLUX DISEASE WITHOUT 02/19/2020 LOTUS FREIRE MD Ot M19. 91 PRIMARY OSTEOARTHRITIS, UNSPECIFIED SITE 02/19/2020 LOTUS FREIRE MD Ot M25.551 PAIN IN RIGHT HIP 02/19/2020 LOTUS FREIRE MD Ot M54. 5 LOW BACK PAIN 02/19/2020 LOTUS FREIRE MD Ot N40. 1 BENIGN PROSTATIC HYPERPLASIA WITH LOWER 02/19/2020 LOTUS FREIRE MD Ot R33. 9 RETENTION OF URINE, UNSPECIFIED 02/19/2020 LOTUS FREIRE MD Ot S40.811A ABRASION OF RIGHT UPPER ARM, INITIAL ENC 02/19/2020 LOTUS FREIRE MD Ot W06.XXXA FALL FROM BED, INITIAL ENCOUNTER 02/19/2020 LOTUS FREIRE MD Ot Z79. 02 ALF (CURRENT) USE OF ANTITHROMBOTI 02/19/2020 LOTUS FREIRE MD Ot Z79. 82 [employer]ORY TE[employer]ER (CURRENT) USE OF ASPIRIN 02/19/2020 LOTUS FREIRE MD, Ot Z79.899 OTHER ALF (CURRENT) DRUG THERAPY 02/19/2020 LOTUS FREIRE MD, Ot Z88. 0 ALLERGY STATUS TO PENICILLIN 02/19/2020 LOTUS FREIRE MD, Ot Z88. 2 ALLERGY STATUS TO SULFONAMIDES STATUS 02/19/2020 LOTUS FREIRE MD, Ot Z88. 8 ALLERGY STATUS TO OTH DRUG/MEDS/BIOL SUB 02/19/2020 LOTUS FREIRE MD, Ot Z95. 1 PRESENCE OF AORTOCORONARY BYPASS GRAFT 02/19/2020 LOTUS FREIRE MD, Ot Z95. 5 PRESENCE OF CORONARY ANGIOPLASTY IMPLANT Procedures Code Description Performed By Per tad On [id number] RE POSITION LEFT UPPER FEMUR WITH INTRAME 03/08/2017 [id number] IN SPECTION OF BLADDER, ENDO 03/10/2017 Results [...] mg/dL 70-110 Automated blood complete blood count ( mogram) panel - 03/10/17 06:10 Blood leukocytes [...] FOR INFLUENZA A AND B ANTIGENS BY [facility] Comprehensive metabolic panel - 01/29/19 13:00 Serum [...] culture - 06/08/19 08:50 Bacterial urine culture [id number] NRG COLONY COUNT >100,000/ML NRG FTX;REPORTABLE UNKNOWN [...] DOCUMENTATION - 07/19/19 11:00 COMMENT NRG CONTACT LOUANN COREY MD NRG TESTS AFFECTED MICROALBUMIN NRG LIPID PANEL - 10/18/19 09:12 CHOLESTEROL, TOTAL 123 mg/dL <200 HDL CHOLESTEROL 58 mg/dL >40 TRIGLYCERIDES 66 mg/dL <150 LDL-CHOLESTEROL 50 mg/dL (calc) NRG CHOL/HDLC RATIO 2.1 (calc) <5.0 NON HDL CHOLESTEROL 65 mg/dL (calc) <130 CMP - 10/18/19 09:12 GLUCOSE 136 mg/dL 65-99 UREA NITROGEN (BUN) 15 mg/dL 7-25 CREATININE 0.74 mg/dL 0.70-1.18 eGFR NON-AFR. MARTINIQUAIS 93 mL/min/1.73m2 > OR = 60 eGFR [...] culture - 12/18/19 12:00 Bacterial urine culture [id number] NRG COLONY COUNT >100,000/ML NRG FTX;REPORTABLE SEE [...] culture - 01/26/20 20:20 Bacterial urine culture [id number] NRG COLONY COUNT >100,000/ML NRG SUSCEPTIBILITY NOT CORYNEBACTERIUM UREALYTICUM NRG MRSA SCREEN SEE COMMENT NRG Complete blood count (CBC) with automate [...] 01/26/20 20:27 DILANTIN PHEN 15.5 % 10.0-20.0 Complete blood count (CBC) with automate d white blood cell (WBC) differential - 02/16/20 11:45 Blood leukocytes automated count (number/volume) 13.0 10*3/uL 4.3-11.0 Blood erythrocytes automated count (number/volume) 4.04 10*6/uL 4.35-5.85 Venous blood hemoglobin measurement (mass/volume) 11.3 g/dL 13.3-17.7 Blood hematocrit (volume fraction) 33 % 40-54 Automated erythrocyte mean corpuscular volume 83 [ foz_us] 80-99 Automated erythrocyte mean corpuscular h emoglobin (mass per erythrocyte) 28 pg 25-34 Automated erythrocyte mean corpuscular h emoglobin concentration measurement (mass/volume) 34 g/dL 32-36 Automated erythrocyte distribution width ratio 15. 9 % 10.0- 14.5 Automated blood platelet count (count/volume) 382 10*3/uL 130-400 Automated blood platelet mean volume measurement 7.9 [foz_us] 7.4-10.4 Automated blood neutrophils/100 leukocytes 82 % 42-75 Automated blood lymphocytes/100 leukocytes 10 % 12-44 Blood monocytes/100 leukocytes 7 % 0-12 Automated blood eosinophils/100 leukocytes 0 % 0-10 Automated blood basophils/100 leukocytes 0 % 0-10 Blood neutrophils automated count (number/volume) 10.7 10*3 1.8-7.8 Blood lymphocytes automated count (number/volume) 1.3 10*3 1.0-4.0 Blood monocytes automated count (number/volume) 0. 9 10*3 0.0-1.0 Automated eosinophil count 0.0 10*3/uL 0 .0-0.3 Automated blood basophil count (count/volume) 0.0 10*3/uL 0.0-0.1 PT panel in platelet poor plasma by coag ulation assay - 02/16/20 11:45 Prothrombin time (PT) in platelet poor plasma by coagu lation assay 14.8 s 12.2-14.7 INR in platelet poor plasma or blood by coagulation as say 1.1 0.8-1.4 Activated partial thromboplastin time (a PTT) in platelet poor plasma bycoagulation assay - 02/16/20 11:45 Activated partial thromboplastin time (a PTT) in platelet poor plasma bycoagulation assay 41 s 24-35 Comprehensive metabolic panel - 02/16/20 11:45 Serum or plasma sodium measurement (moles/volume) 129 mmol/L 135-145 Serum or plasma potassium measurement (moles/volume) 4.5 mmol/L 3.6-5.0 Serum or plasma chloride measurement (moles/volume) 96 mmol/L 98-107 Carbon dioxide 22 mmol/L 21-32 Serum or plasma anion gap determination (moles/volume) 11 mmol/L 5-14 Serum or plasma urea nitrogen measurement (mass/volume ) 17 mg/dL 7-18 Serum or plasma creatinine measurement (mass/volume) 0.68 mg/dL 0.60-1.30 Serum or plasma urea nitrogen/creatinine mass ratio 25 NRG Serum or plasma creatinine measurement w ith calculation of estimated glomerular filtration rate > NRG Serum or plasma glucose measurement (mass/volume) 123 mg/dL 70-105 Serum or plasma calcium measurement (mass/volume) 8.8 mg/dL 8.5-10.1 Serum or plasma total bilirubin measurement (mass/volu me) 0.3 mg/dL 0.1-1.0 Serum or plasma alkaline phosphatase delmi surement (enzymatic activity/volume) 59 U/L 40-136 Serum or plasma aspartate aminotransfera se measurement (enzymatic activity/volume) 14 U/L 5-34 Serum or plasma alanine aminotransferase measurement (enzymatic activity/volume) 7 U/L 0-55 Serum or plasma protein measurement (mass/volume) 6.4 g/dL 6.4-8.2 Serum or plasma albumin measurement (mass/volume) 3.9 g/dL 3.2-4.5 CALCIUM CORRECTED 8.9 mg/dL 8.5-10.1 Complete urinalysis with reflex to cultu re - 02/16/20 12:51 Urine color determination RED NRG Urine clarity determination CLOUDY NR G Urine pH measurement by test strip 6.5 5-9 Specific gravity of urine by test strip 1.015 1.016-1.022 Urine protein assay by test strip, semi-quantitative 2+ NEGATIVE Urine glucose detection by automated test strip NE GATIVE NEGATIVE Erythrocytes detection in urine sediment by light micr oscopy 3+ NEGATIVE Urine ketones detection by automated test strip NE GATIVE NEGATIVE Urine nitrite detection by test strip NEGATIVE NEGATIVE Urine total bilirubin detection by test strip NEGA TIVE NEGATIVE Urine urobilinogen measurement by automated test strip (mass/volume) 0.2 mg/dL < = 1.0 Urine leukocyte esterase detection by dipstick 2+ NEGATIVE Automated urine sediment erythrocyte cou nt by microscopy (number/high power field) > [HPF] NRG Automated urine sediment leukocyte count by microscopy (number/high power field) [HPF] NRG Bacteria detection in urine sediment by light microsco py TRACE NRG Crystals detection in urine sediment by light microsco py NONE NRG Casts detection in urine sediment by light microscopy NONE NRG Mucus detection in urine sediment by light microscopy NEGATIVE NRG Complete urinalysis with reflex to culture YES NRG Bacterial urine culture - 02/16/20 12:51 Bacterial urine culture NG NRG Complete blood count (CBC) with automate d white blood cell (WBC) differential - 02/17/20 09:15 Blood leukocytes automated count (number/volume) 8.9 10*3/uL 4.3-11.0 Blood erythrocytes automated count (number/volume) 4.33 10*6/uL 4.35-5.85 Venous blood hemoglobin measurement (mass/volume) 11.9 g/dL 13.3-17.7 Blood hematocrit (volume fraction) 35 % 40-54 Automated erythrocyte mean corpuscular volume 82 [ foz_us] 80-99 Automated erythrocyte mean corpuscular h emoglobin (mass per erythrocyte) 27 pg 25-34 Automated erythrocyte mean corpuscular h emoglobin concentration measurement (mass/volume) 34 g/dL 32-36 Automated erythrocyte distribution width ratio 15. 6 % 10.0- 14.5 Automated blood platelet count (count/volume) 371 10*3/uL 130-400 Automated blood platelet mean volume measurement 7.7 [foz_us] 7.4-10.4 Automated blood neutrophils/100 leukocytes 81 % 42-75 Automated blood lymphocytes/100 leukocytes 11 % 12-44 Blood monocytes/100 leukocytes 7 % 0-12 Automated blood eosinophils/100 leukocytes 1 % 0-10 Automated blood basophils/100 leukocytes 0 % 0-10 Blood neutrophils automated count (number/volume) 7.2 10*3 1.8-7.8 Blood lymphocytes automated count (number/volume) 1.0 10*3 1.0-4.0 Blood monocytes automated count (number/volume) 0. 6 10*3 0.0-1.0 Automated eosinophil count 0.1 10*3/uL 0 .0-0.3 Automated blood basophil count (count/volume) 0.0 10*3/uL 0.0-0.1 Comprehensive metabolic panel - 02/17/20 09:15 Serum or plasma sodium measurement (moles/volume) 132 mmol/L 135-145 Serum or plasma potassium measurement (moles/volume) 4.4 mmol/L 3.6-5.0 Serum or plasma chloride measurement (moles/volume) 96 mmol/L 98-107 Carbon dioxide 25 mmol/L 21-32 Serum or plasma anion gap determination (moles/volume) 11 mmol/L 5-14 Serum or plasma urea nitrogen measurement (mass/volume ) 18 mg/dL 7-18 Serum or plasma creatinine measurement (mass/volume) 0.76 mg/dL 0.60-1.30 Serum or plasma urea nitrogen/creatinine [...] plasma alkaline phosphatase delmi surement (enzymatic activity/volume) 60 U/L 40-136 Serum or plasma aspartate aminotransfera se measurement (enzymatic activity/volume) 12 U/L 5-34 Serum or plasma alanine aminotransferase measurement (enzymatic activity/volume) 7 U/L 0-55 Serum or plasma protein measurement (mass/volume) 6.7 g/dL 6.4-8.2 Serum or plasma albumin measurement (mass/volume) 4.0 g/dL 3.2-4.5 CALCIUM CORRECTED 9.3 mg/dL 8.5-10.1 Serum or plasma creatine kinase measurem ent (enzymatic activity/volume) - 02/17/20 09:15 Serum or plasma creatine kinase measurem ent (enzymatic activity/volume) 30 U/L 30-200 MICROALBUMIN/CREATININE RATIO, URINE - 0 02/21/20 12:09 CREATININE, RANDOM URINE 23 mg/dL 20-32 0 MICROALBUMIN 0.9 mg/dL See Note: MICROALBUMIN/CREATININE RATIO, RANDOM URINE 39 mcg /mg creat <30 CMP - 02/21/20 12:09 GLUCOSE 133 mg/dL 65-99 UREA NITROGEN (BUN) 16 mg/dL 7-25 CREATININE 0.79 mg/dL 0.70-1.18 eGFR NON-AFR. MARTINIQUAIS 91 mL/min/1.73m2 > OR = 60 eGFR 105 mL/min/1.73m2 > OR = 60 BUN/CREATININE RATIO NOT APPLICABLE (calc) 6-22 SODIUM 133 mmol/L 135-146 POTASSIUM 4.6 mmol/L 3.5-5.3 CHLORIDE 100 mmol/L 98-110 CARBON DIOXIDE 24 mmol/L 20-32 CALCIUM 9.5 mg/dL 8.6-10.3 PROTEIN, TOTAL 6.6 g/dL 6.1-8.1 ALBUMIN 4.1 g/dL 3.6-5.1 GLOBULIN 2.5 g/dL (calc) 1.9-3.7 ALBUMIN/GLOBULIN RATIO 1.6 (calc) 1.0-2. 5 BILIRUBIN, TOTAL 0.4 mg/dL 0.2-1.2 ALKALINE PHOSPHATASE 69 U/L 35-144 AST 14 U/L 10-35 ALT 10 U/L 9-46 CBC - 02/21/20 12:09 WHITE BLOOD CELL COUNT 6.5 Thousand/uL 3 .8-10.8 RED BLOOD CELL COUNT 4.29 Million/uL 4.2 0-5.80 HEMOGLOBIN 11.8 g/dL 13.2-17.1 HEMATOCRIT 35.1 % 38.5-50.0 MCV 81.8 fL 80.0-100.0 MCH 27.5 pg 27.0-33.0 MCHC 33.6 g/dL 32.0-36.0 RDW 15.3 % 11.0-15.0 PLATELET COUNT 375 Thousand/uL 140-400 MPV 8.1 fL 7.5-12.5 ABSOLUTE NEUTROPHILS 4518 cells/uL 1500- 7800 ABSOLUTE LYMPHOCYTES 1372 cells/uL 850-3 900 ABSOLUTE MONOCYTES 553 cells/uL 200-950 ABSOLUTE EOSINOPHILS 39 cells/uL 15-500 ABSOLUTE BASOPHILS 20 cells/uL 0-200 NEUTROPHILS 69.5 % NRG LYMPHOCYTES 21.1 % NRG MONOCYTES 8.5 % NRG EOSINOPHILS 0.6 % NRG BASOPHILS 0.3 % NRG DILANTIN - 02/21/20 12:09 PHENYTOIN 26.9 mg/L 10.0-20.0 A1C - 02/21/20 12:09 HEMOGLOBIN A1c 5.7 % of total Hgb <5.7 CULTURE, URINE - 02/27/20 14:24 CULTURE, URINE, ROUTINE SEE NOTE NRG Complete blood count (CBC) with automate d white blood cell (WBC) differential - 03/24/20 13:30 Blood leukocytes automated count (number/volume) 8.5 10*3/uL 4.3-11.0 Blood erythrocytes automated count (number/volume) 4.09 10*6/uL 4.35-5.85 Venous blood hemoglobin measurement (mass/volume) 11.5 g/dL 13.3-17.7 Blood hematocrit (volume fraction) 33 % 40-54 Automated erythrocyte mean corpuscular volume 81 [ foz_us] 80-99 Automated erythrocyte mean corpuscular h emoglobin (mass per erythrocyte) 28 pg 25-34 Automated erythrocyte mean corpuscular h emoglobin concentration measurement (mass/volume) 35 g/dL 32-36 Automated erythrocyte distribution width ratio 15. 3 % 10.0- 14.5 Automated blood platelet count (count/volume) 366 10*3/uL 130-400 Automated blood platelet mean volume measurement 7.0 [foz_us] 7.4-10.4 Automated blood neutrophils/100 leukocytes 69 % 42-75 Automated blood lymphocytes/100 leukocytes 22 % 12-44 Blood monocytes/100 leukocytes 8 % 0-12 Automated blood eosinophils/100 leukocytes 1 % 0-10 Automated blood basophils/100 leukocytes 0 % 0-10 Blood neutrophils automated count (number/volume) 5.9 10*3 1.8-7.8 Blood lymphocytes automated count (number/volume) 1.8 10*3 1.0-4.0 Blood monocytes automated count (number/volume) 0. 7 10*3 0.0-1.0 Automated eosinophil count 0.1 10*3/uL 0 .0-0.3 Automated blood basophil count (count/volume) 0.0 10*3/uL 0.0-0.1 PT panel in platelet poor plasma by coag ulation assay - 03/24/20 13:30 Prothrombin time (PT) in platelet poor plasma by coagu lation assay 15.1 s 12.2-14.7 INR in platelet poor plasma or blood by coagulation as say 1.1 0.8-1.4 Blood lactic acid measurement (moles/vol ume) - 03/24/20 13:30 Blood lactic acid measurement (moles/volume) 0.84 mmol/L 0.50-2.00 Comprehensive metabolic panel - 03/24/20 13:30 Serum or plasma sodium measurement (moles/volume) 130 mmol/L 135-145 Serum or plasma potassium measurement (moles/volume) 4.3 mmol/L 3.6-5.0 Serum or plasma chloride measurement (moles/volume) 93 mmol/L 98-107 Carbon dioxide 23 mmol/L 21-32 Serum or plasma anion gap determination (moles/volume) 14 mmol/L 5-14 Serum or plasma urea nitrogen measurement (mass/volume ) 22 mg/dL 7-18 Serum or plasma creatinine measurement (mass/volume) 0.82 mg/dL 0.60-1.30 Serum or plasma urea nitrogen/creatinine mass ratio 27 NRG Serum or plasma creatinine measurement w ith calculation of estimated glomerular filtration rate > NRG Serum or plasma glucose measurement (mass/volume) 138 mg/dL 70-105 Serum or plasma calcium measurement (mass/volume) 8.9 mg/dL 8.5-10.1 Serum or plasma total bilirubin measurement (mass/volu me) 0.3 mg/dL 0.1-1.0 Serum or plasma alkaline phosphatase delmi surement (enzymatic activity/volume) 62 U/L 40-136 Serum or plasma aspartate aminotransfera se measurement (enzymatic activity/volume) 13 U/L 5-34 Serum or plasma alanine aminotransferase measurement (enzymatic activity/volume) 8 U/L 0-55 Serum or plasma protein measurement (mass/volume) 6.4 g/dL 6.4-8.2 Serum or plasma albumin measurement (mass/volume) 3.9 g/dL 3.2-4.5 CALCIUM CORRECTED 9.0 mg/dL 8.5-10.1 TROPONIN I FS - 03/24/20 13:30 TROPONIN I FS < 0.30 <0.30 Serum or plasma salicylates measurement (mass/volume) - 03/24/20 13:30 Serum or plasma salicylates measurement (mass/volume) < mg/dL 5.0-20.0 Serum or plasma acetaminophen measuremen t (mass/volume) - 03/24/20 13:30 Serum or plasma acetaminophen measurement (mass/volume ) < ug/mL 10-30 Serum or plasma ethanol measurement (mas s/volume) - 03/24/20 13:30 Serum or plasma ethanol measurement (mass/volume) < mg/dL <10 Urine drug screening test - 03/24/20 14: 00 Urine phencyclidine detection by screening method NEGATIVE NEGATIVE Urine benzodiazepines detection by screening method POSITIVE NEGATIVE Urine cocaine detection NEGATIVE NEGATI VE Urine amphetamines detection by screening method N EGATIVE NEGATIVE Urine methamphetamine detection by screening method NEGATIVE NEGATIVE Urine cannabinoids detection by screening method N EGATIVE NEGATIVE Urine opiates detection by screening method NEGATI VE NEGATIVE Urine barbiturates detection POSITIVE N EGATIVE Screening urine tricyclic antidepressants detection NEGATIVE NEGATIVE Urine methadone detection by screening method NEGA TIVE NEGATIVE Urine oxycodone detection NEGATIVE NEGA TIVE Urine propoxyphene detection NEGATIVE N EGATIVE Complete urinalysis with reflex to cultu re - 03/24/20 14:00 Urine color determination PALE YELLOW N RG Urine clarity determination SLT CLOUDY NRG Urine pH measurement by test strip 7.0 5-9 Specific gravity of urine by test strip 1.010 1.016-1.022 Urine protein assay by test strip, semi-quantitative NEGATIVE NEGATIVE Urine glucose detection by automated test strip NE GATIVE NEGATIVE Erythrocytes detection in urine sediment by light micr oscopy 1+ NEGATIVE Urine ketones detection by automated test [...] in urine sediment by light microsco py TRACE NRG Squamous epithelial cells detection in u rine sediment by light microscopy RARE NRG Crystals detection in urine sediment by light microsco py NONE NRG Casts detection in urine sediment by light microscopy NONE NRG Mucus detection in urine sediment by light microscopy NONE NRG Complete urinalysis with reflex to culture YES NRG Encounters ACCT No. Visit Date/Time Discharge Status Pt. Type Provider Facility Loc./Unit Complaint [id number] 02/27/2020 14:15:00 02/27/2020 23:59: 59 [facility] Outpatient [facility] [id number] 02/27/2020 14:15:00 Document Registration [id number] 02/21/2020 10:30:00 Document Registration [id number] 10/18/2019 10:45:00 Document Registration [id number] 07/19/2019 10:15:00 Document Registration [id number] 02/17/2020 09:05:00 12:05:00 DIS Outpatient LOTUS FREIRE MD [facility] ER FS FALL [id number] 02/16/2020 11:29:00 13:14:00 DIS Emergency SIRIA PAIGE DO [facility] ER FS HEMATURIA [id number] 01/26/2020 19:25:00 020 22:16:00 DIS Emergency ISABELLA DEAL MD [facility] ER FS SEIZURE [id number] 12/18/2019 12:30:00 23:59:59 CLS Outpatient LEORA TINSLEY, LOUANN Coyle [facility] IHC CMP UA [id number] 06/08/2019 08:50:00 23:59:59 CLS Outpatient ALBERT KNOTT MD [facility] LAB FS N40.1 [id number] 06/05/2019 17:54:00 19:39:00 DIS Emergency CHICHI CARDENAS DO [facility] ER FS PT FELL AT HOME [id number] 01/29/2019 12:42:00 019 17:15:00 DIS Emergency SYL THEODORE DO [facility] ER FS CHEST PAIN [id number] 07/23/2017 06:25:00 017 14:15:00 DIS Inpatient ESCOTO DO CARLOS [facility] 4TH HIP FRACTURE [id number] 04/22/2017 14:30:00 017 14:40:00 DIS Inpatient ESCOTO DO CARLOS V [facility] 4TH HYPONATREMIA COMPLICATE D UTI [id number] 03/11/2017 09:51:00 017 10:10:00 DIS Inpatient GREGORIA TINSLEY, RON Paulson [facility] IRF DISPLACED INTERTROCHANT RON FX LEFT FEMUR [id number] 03/07/2017 21:00:00 017 09:43:00 DIS Inpatient SARY MCCRARY DO [facility] 4TH L HIP FRACTURE; SEIZUR E DISORDER; CAD [id number] 03/24/2020 13:55:00 Document Registration [id number] 01/12/2013 10:45:00 Document Registration [id number] 12/28/2012 12:32:00 Document Registration [id number] 09/21/2012 12:42:00 Document Registration [id number] 09/15/2012 11:36:00 Document Registration
--- NOTE | 2020-03-24 15:03 | NUR ---
Called Hellen Veloz, patients poa, to update on patient admission.
[2020-03-24 16:00] VITALS: BP 124/68
[2020-03-24] MEDS ORDERED: ENOXAPARIN 40 MG/0.4 ML (LOVENOX) SYR SC SCH (16:00)
--- NOTE | 2020-03-24 16:00 | NUR ---
JONATHON TINSLEY admitted to room 408-1, with an admitting diagnosis of UTI, AMS AND HYPONATREMIA, on 03/24/20 from ED via [facility], accompanied by EMS.JONATHON TINSLEY introduced to surroundings, call light, bed controls, phone, TV, temperature control, lights, meal times, smoking policy, visitor policy, side rail policy, bathrooms and showers. Patient Rights given to patient in the handbook. JONATHON TINSLEY verbalizes understanding that [facility] is not responsible for the loss or damage to any personal effects or valuables that are kept in the patients posession during their hospitalization.
--- NOTE | 2020-03-24 16:42 | Diagnostic Imaging Report ---
PROCEDURE: CT head without contrast. TECHNIQUE: Multiple contiguous axial images were obtained through the brain without the use of intravenous contrast. Auto Exposure Controls were utilized during the CT exam to meet ALARA standards for radiation dose reduction. INDICATION: Altered mental status. FINDINGS: This exam is less than optimal as the patient was difficult to position. There is also streak artifact. There is no mass, shift of the midline or hemorrhage to suggest an acute abnormality. The ventricles are not abnormally dilated and similar in size to the prior exam of 02/17/2020. The senescent changes, seen on the prior study, are again evident and no different. The bone windows show no sign of a fracture or of a destructive lesion. The orbits are symmetrical and within normal limits. The sinuses are generally clear. IMPRESSION: 1. There is no evidence for an acute intracranial abnormality. When compared to the prior study, there does not appear to have been any significant change. 2. If clinical concern regarding acute abnormality persists, then MRI would be recommended for further evaluation. Dictated by: Dictated on workstation # [id number]
[2020-03-24 16:45] LABS: ABG BASE EXCESS 0.7 MMOL/L (-2.5-2.5); ABG OXYGEN SATURATION 98 % (94-100); ABG PCO2 38 MMHG (35-45); ABG PH 7.42 (7.37-7.43); ABG PO2 88 MMHG (79-93); ABG TCO2 26.1 MMOL/L (21.0-31.0)
[2020-03-24 16:46] LABS: ALLENS TEST YES-POS; INSPIRED O2 ROOM AIR; VENTILATOR NO
[2020-03-24] MEDS: NS IV 1000 ML 1,000 ML IV SCH (16:48)
[2020-03-24 16:55] VITALS: BP 124/68
[2020-03-24] MEDS ORDERED: RT-ALBUTEROL SULF 2.5 MG/3 ML PRE-MIX VIAL INH PRN (17:15)
[2020-03-24] MEDS ORDERED: oxyCODONE/APAP 10/325MG (PERCOCET 10) TABLET PO PRN (17:15)
[2020-03-24] MEDS ORDERED: RT-ALBUTEROL/IPRATROPIUM 3 ML (DUONEB) VIAL INH PRN (17:15)
--- NOTE | 2020-03-24 18:11 | NUR ---
PT'S DPOA, SISTER, SRINATH CALLED THIS NURSE CIGARETTE MACHINE FILLER TO GIVE INFORMATION REGARDING PT, SINCE AT THE TIME OF HIS ARRIVAL HE WAS VERY LETHARGIC AND UNABLE TO STAY AWAKE LONG ENOUGH TO TELL THIS RN HIS HISTORY. SRINATH SAID SHE WOULD BE IN [place] TOMORROW AND WOULD BRING BY CLOTHES AND HIS DENTURES. SHE ALSO STATED HE HAS EYE DROPS FROM HIS EYE DR IN [place] BUT WAS UNSURE OF NAME OF MEDICATION. HIS PHARMACY IS [facility] IN [place]. SRINATH REPORTED THAT HE HAS HOME HEALTH THRU [facility] IN [place]. A NURSE COMES BY WEEKLY TO SET UP MEDICATIONS AND HOME HEALTH AIDES ARE IN HOUSE WITH HIM MOST OF THE DAY TO PERFORM ADL'S AND ALL NEEDS. SRINATH SAID THAT ONE OF THESE WORKERS WILL ADMIN MEDICATIONS TO HIM THAT THE NURSE SETS UP. SRINATH ALSO SAID THAT PT IS TO SELF CATH MULTIPLE TIMES DAILY BUT WILL ONLY DO SO ONCE DAILY AND HAS HAD MANY UTI'S RECENTLY. SHE ALSO STATED THAT HE HAS BECOME MUCH WEAKER LATELY, REFUSES TO DO EXERCISES THAT HE IS TOLD TO DO AND CAN ONLY TRANSFER SELF FROM W/C TO BED. THE PT TOLD THIS CIGARETTE MACHINE FILLER THIS WELL, RE HIS WEAKNESS AND MOBILITY. SRINATH SAID SHE IS AVAILABLE AT ANY TIME IF STAFF NEEDS ANYTHING. PT CONTINUES TO BE LETHARGIC AND CAN NOT STAY AWAKE MORE THAN A FEW MINUTES. WHEN ASKED ORIENTATION QUESTIONS HE ANSWERS NAME, YEAR AND LOCATION CORRECTLY. HE DOES REPORT PAIN TO BACK AND THEN WILL FALL BACK TO SLEEP. ALL MEDICATIONS HAVE BEEN RECONCILED AT THIS TIME. PT DID TELL RN THAT HE PREFERS PILLS TO BE CRUSHED AND PUT IN APPLESAUCE OR PUDDING SO HE CAN TAKE THEM. THIS RN WILL PASS ON TO PM RN THAT PHARMACY DOES NEED TO BE CONTACTED TOMORROW REGARDING EYE DROPS AND THE NAME OF MED AND DOSING.
--- NOTE | 2020-03-24 18:25 | NUR ---
PT CONTINUES TO C/O PAIN AT 11 ON SCALE OF 0-10, TO HIS BACK. THIS RN CONTACTED INSIDE WIREMAN, EVELYN Porras RN AND SHE WAS ABLE TO OVERRIDE PERCOCET IN OMNICELL. WHEN THIS NURSE PARTY PLAN SALES HOST/HOSTESS ADMIN MEDICATION PT WAS AWAKE AND ALERT AND ORIENTED. THIS RN CRUSHED PILL AND ADMIN TO PT IN APPLESAUCE AND HE HAD NO DIFFICULTY SWALLOWING.
--- NOTE | 2020-03-24 18:46 | NUR ---
DR ESCOTO AWARE OF RASH TO LEFT SIDE OF BACK AND SAID TO MONITOR ONLY VIA PHONE.
[2020-03-24 20:00] VITALS: BP 134/60
[2020-03-24] MEDS ORDERED: GABAPENTIN 300 MG (NEURONTIN) CAP PO SCH (21:00)
[2020-03-24] MEDS ORDERED: FLUTICASONE 110 MCG INHALER (FLOVENT) 12 GM INH SCH (21:00)
[2020-03-24] MEDS ORDERED: eZETimibe 10 MG (ZETIA) TABLET PO SCH (21:00)
[2020-03-24] MEDS: oxyCODONE ER 20 MG (OxyCONTIN CR) TAB PO SCH (21:20)
[2020-03-24] MEDS: BETHANECHOL 25 MG (URECHOLINE) TAB PO SCH (21:20)
[2020-03-24] MEDS ORDERED: MELATONIN 3 MG TABLET PO PRN (21:30)
[2020-03-24] MEDS ORDERED: LOPERAMIDE 2 MG (IMODIUM) TABLET PO PRN (21:30)
[2020-03-24] MEDS ORDERED: ACETAMINOPHEN 500 MG TAB (TYLENOL) PO PRN (21:30)
[2020-03-24] MEDS ORDERED: ONDANSETRON 4 MG/2 ML (SDV) Z0FRAN IVP PRN (21:30)
[2020-03-24] MEDS ORDERED: CALCIUM CARBONATE 500 MG (TUMS) TAB.CHEW PO PRN (21:30)
[2020-03-24] MEDS ORDERED: DOCUSATE SODIUM 100 MG (COLACE) CAP PO PRN (21:30)
[2020-03-24] MEDS ORDERED: ONDANSETRON 4 MG (ZOFRAN) ORAL DISSOLVE TAB PO PRN (21:30)
[2020-03-24] MEDS ORDERED: diphenhydrAMINE 25 MG TAB (BENADRYL) PO PRN (21:30)
[2020-03-24] MEDS ORDERED: ALPRAZolam 0.25 MG (XANAX) TAB PO PRN (21:30)
[2020-03-24 23:48] VITALS: BP 138/62
[2020-03-25] MEDS: NS IV 1000 ML 1,000 ML IV SCH (03:53)
[2020-03-25 04:15] VITALS: BP 128/73
[2020-03-25 05:29] LABS: BASOPHILS % (AUTO) 0 % (0-10); EOSINOPHILS # (AUTO) 0.1 10^3/uL (0.0-0.3); EOSINOPHILS % (AUTO) 1 % (0-10); HEMATOCRIT 35 % (40-54); LYMPHOCYTES # (AUTO) 1.2 X 10^3 (1.0-4.0); LYMPHOCYTES % (AUTO) 20 % (12-44); MEAN CORPUSCULAR HEMOGLOBIN 28 PG (25-34); MEAN CORPUSCULAR HGB CONC 35 G/DL (32-36); MEAN CORPUSCULAR VOLUME 81 FL (80-99); MEAN PLATELET VOLUME 7.3 FL (7.4-10.4); MONOCYTES # (AUTO) 0.6 X 10^3 (0.0-1.0); MONOCYTES % (AUTO) 10 % (0-12); NEUTROPHILS # (AUTO) 4.3 X 10^3 (1.8-7.8); NEUTROPHILS % (AUTO) 70 % (42-75); PLATELET COUNT 357 10^3/uL (130-400); RED CELL DISTRIBUTION WIDTH 15.8 % (10.0-14.5); WHITE BLOOD COUNT 6.2 10^3/uL (4.3-11.0)
[2020-03-25 05:46] LABS: ALBUMIN 3.8 GM/DL (3.2-4.5)
[2020-03-25 05:47] LABS: CHLORIDE 104 MMOL/L (98-107); POTASSIUM 4.3 MMOL/L (3.6-5.0); SODIUM 136 MMOL/L (135-145)
[2020-03-25 05:48] LABS: CALCIUM 8.9 MG/DL (8.5-10.1)
[2020-03-25 05:49] LABS: GLUCOSE 125 MG/DL (70-105); TOTAL PROTEIN 6.6 GM/DL (6.4-8.2)
[2020-03-25 05:50] LABS: CARBON DIOXIDE 22 MMOL/L (21-32)
[2020-03-25 05:51] LABS: BILIRUBIN,TOTAL 0.3 MG/DL (0.1-1.0)
[2020-03-25 05:53] LABS: ALKALINE PHOSPHATASE 73 U/L (40-136); CREATININE SERUM 0.78 MG/DL (0.60-1.30); GFR ESTIMATED > 60
[2020-03-25 05:54] LABS: BUN/CREATININE RATIO 21
[2020-03-25 05:56] LABS: ALANINE AMINOTRANSFERASE 17 U/L (0-55)
--- NOTE | 2020-03-25 07:48 | NUR ---
PHU FLYNN'D PER ORDERS FROM DR BARNEY
[2020-03-25 08:00] VITALS: BP 160/64
[2020-03-25] MEDS ORDERED: SENNA W/DOCUSATE (SENOKOT S) TABLET PO SCH (09:00)
[2020-03-25] MEDS ORDERED: CLOPIDOGREL 75 MG (PLAVIX) TABLET PO SCH (09:00)
[2020-03-25] MEDS ORDERED: ASPIRIN E.C. 81 MG (ECOTRIN) TAB PO SCH (09:00)
[2020-03-25] MEDS ORDERED: FLUoxetine HCL 20 MG (PROzac) CAP PO SCH (09:00)
[2020-03-25] MEDS ORDERED: FERROUS SULF 325 MG (IRON) TAB PO SCH (09:00)
[2020-03-25] MEDS ORDERED: cefTRIAXone FOR IV USE 1,000 MG in WATER (STERILE) FOR INJECTION 10 ML IV SCH (09:00)
[2020-03-25] MEDS ORDERED: FLUTICASONE NASAL SPRAY (FLONASE) 16 GM BTL NS SCH (09:00)
[2020-03-25] MEDS: oxyCODONE ER 20 MG (OxyCONTIN CR) TAB PO SCH (09:18)
[2020-03-25] MEDS: BETHANECHOL 25 MG (URECHOLINE) TAB PO SCH ×2 (09:29→12:37)
--- NOTE | 2020-03-25 10:01 | Short Stay Summary-Hospitalist ---
History of Present Illness HPI/Chief Complaint CC: Altered mental status with hyponatremia and UTI HPI: THis is a 69yoWM pt known to me from prior admissions who presented with altered mental status from [facility] ER with UTI, hyponatremia of 130 was managed with fluid restriction and gentle IV fluids initiated. Rocephin given empirically for UTI although the last urine test showed yeast. Pt did well through the night, cardiology was consulted to be sure there were no cardiac issues of which he usually sees cardiology in [place]. Pt is a very poor historian and very difficult to grasp any reliable information but he does have a caregiver at home and will be monitored closely. I will restart all of his home medication and he will go home on Omnicef and Diflucan for empiric treatment of UTI with close follow up with [facility]. Source: patient Exam Limitations: no limitations Date Seen 03/25/20 Time Seen by a Provider: 10:00 Attending Physician Kelly Hartman Pankaj K MD Referring Physician Date of Admission March 24, 2020 at 15:01 Home Medications & Allergies Home Medications Reviewed patient Home Medication Reconciliation performed by pharmacy medication reconciliations process mold technician and/or nursing. Patients Allergies have been reviewed. Allergies Allergies Coded Allergies Penicillins (Verified Allergy, Unknown, 04/22/17) diazepam (Unverified Allergy, Unknown, 03/07/17) doxycycline (Unverified Allergy, Unknown, RASH, 03/07/17) phenobarbital (Unverified Allergy, Unknown, 03/07/17) RELAXES ME TOO MUCH piperacillin (Unverified Allergy, Unknown, RASH, PT HAS RECEIVED CEFAZOLIN IN THE PAST W/O ISSUE, 03/08/17) sulfamethoxazole (Verified Allergy, Unknown, 04/22/17) terazosin (Unverified Allergy, Unknown, 03/07/17) CHEST PAIN Past Nxsmpuc-[id number]-Mxszgf Hx Past Med/Social Hx: Reviewed Nursing Past Med/Soc Hx, Reviewed and Corrections made Patient Social History Marrital Status: single Employed/Student: unemployed Alcohol Use: Denies Use Recreational Drug Use: No Smoking Status: Former Smoker Type Used: Cigarettes 2nd Hand Smoke Exposure: Yes Recent Foreign Travel: No Contact w/other who traveled: No Recent Hopitalizations: No Recent Infectious Disease Expo: No Immunizations Up To Date Date of Pneumonia Vaccine: Nov 24, 2016 Date of Influenza Vaccine: Aug 08, 2012 Seasonal Allergies Seasonal Allergies: No Past Medical History Surgeries: Appendectomy, Cardiac, CABG, Coronary Stent, Gallbladder, Orthopedic, Penile Implant, Renal, Transurethral Resection Respiratory: COPD Currently Using CPAP: No Currently Using BIPAP: No Cardiac: Coronary Artery Disease, High Cholesterol, Hypertension Neurological: Headaches /Migraines, Seizure Disorder Reproductive: Yes (ED--PENILE IMPLANT) Sexually Transmitted Disease: No HIV/AIDS: No Genitourinary: Benign Prostatic Hyperpl, Kidney Stones Gastrointestinal: Gastroesophageal Reflux, Ulcer Musculoskeletal: Arthritis Endocrine: Diabetes, Non-Insulin dep HEENT: Cataract, Glaucoma Loss of Vision: Denies Hearing Impairment: Hard of Hearing Psychosocial: Anxiety, Bipolar, Depression History of Blood Disorders: No Adverse Reaction to Blood Coffman: No Family History Patient reports no known family medical history. Review of Systems Constitutional: see HPI, malaise, weakness Physical Exam Physical Exam Vital Signs Vital Signs - First Documented 03/24/20 13:25 Temp 36.6 Pulse 63 Resp 16 B/P (MAP) 98/53 (68) Pulse Ox 94 Capillary Refill : Less Than 3 Seconds Height, Weight, BMI Height: 5'5.00" Weight: 160lbs. 15.4oz. 73.752940el; 23.07 BMI Method:Estimated General Appearance: No Apparent Distress, WD/WN HEENT: PERRL/EOMI, TMs Normal, Normal ENT Inspection, Pharynx Normal Neck: Full Range of Motion, Normal Inspection, Non Tender, Supple, Carotid Bruit Respiratory: Chest Non Tender, Lungs Clear, Normal Breath Sounds, No Accessory Muscle Use, No Respiratory Distress Cardiovascular: Regular Rate, Rhythm, No Edema, No Gallop, No JVD, No Murmur, Normal Peripheral Pulses Gastrointestinal: Normal Bowel Sounds, No Organomegaly, No Pulsatile Mass, Non Tender, Soft Back: Normal Inspection, No CVA Tenderness, No Vertebral Tenderness Extremity: Normal Capillary Refill, Normal Inspection, Normal Range of Motion, Non Tender, No Calf Tenderness, No Pedal Edema Neurologic/Psychiatric: Alert, Oriented x3, No Motor/Sensory Deficits, Normal Mood/Affect Skin: Normal Color, Warm/Dry Results Results/Procedures Labs Laboratory Tests 03/24/20 13:30 03/25/20 04:50 03/25/20 05:05 Patient resulted labs reviewed. Short Stay Diagnosis Discharge Diagnosis-Short Stay Admission Diagnosis Assessment: Hyponatremia UTI HTN Seizure d/o Falls Final Discharge Diagnosis Assessment: Hyponatremia resolved UTI HTN Seizure d/o Falls Conclusion Plan DC home unexpectedly 1 day earlier due to improvement in hyponatremia and patient stable and deemed ready for DC Diagnosis/Problems Diagnosis/Problems (1) Hyponatremia (2) Urinary tract infection Status: Acute Clinical Quality Measures DVT/VTE Risk/Contraindication: Risk Factor Score Per Nursin RFS Level Per Nursing on Admit: 4+=Very High KELLY HARTMAN DO March 25, 2020 10:01
[2020-03-25] MEDS ORDERED: FLUC100T PO (10:55)
[2020-03-25] MEDS ORDERED: CEFD300C3 PO (10:55)
[2020-03-25] MEDS ORDERED: fluCOnazole (DIFLUCAN) 100 MG TAB PO SCH (11:00)
[2020-03-25 11:02] VITALS: BP 146/72
--- NOTE | 2020-03-25 11:05 | NUR ---
I SPOKE WITH THE PT AND WENT THRU THE EXT MED HISTORY BUT DISCHARGE ORDERS WERE PUT IN BEFORE I COULD COMPLETE THE MED REC THERE WAS A MED LIST ON HIS CHART (POSSIBLY FROM HIS [facility] OFFICE) THAT I ALSO WENT THRU- PT SAYS SHE DOES NOT TAKE CARE OF HIS MEDICATIONS BUT HAS A HOME HEALTH NURSE THAT SET THEM UP FOR HIM. IT LOOKS IF THE MEDICATIONS ON HIS MED LIST MATCH WHAT IS ON THE EXT MED HISTORY AND I WILL NOT CHANGE ANYTHING AT THIS TIME
--- NOTE | 2020-03-25 11:15 | Consultation-Cardiology ---
HPI-Cardiology Cardiology Consultation Date of Consultation 03/25/20 Date of Admission Time Seen by Provider: 11:11 Indication: coronary artery disease HPI 69 years old gentleman was admitted for change in mental status. On my evaluation he denied any chest pain or shortness of breath, had extensive cardiac history as described below. Has been followed by Dr. Oconnor. Being roxie ated for UTI at this point. Home Medications & Allergies Allergies: Coded Allergies: Penicillins (Verified Allergy, Unknown, 04/22/17) diazepam (Unverified Allergy, Unknown, 03/07/17) doxycycline (Unverified Allergy, Unknown, RASH, 03/07/17) phenobarbital (Unverified Allergy, Unknown, 03/07/17) RELAXES ME TOO MUCH piperacillin (Unverified Allergy, Unknown, RASH, PT HAS RECEIVED CEFAZOLIN IN THE PAST W/O ISSUE, 03/08/17) sulfamethoxazole (Verified Allergy, Unknown, 04/22/17) terazosin (Unverified Allergy, Unknown, 03/07/17) CHEST PAIN Home Medication List Reviewed: Yes CQH-[id number]-Odazku Hx Patient Social History Alcohol Use: Denies Use Recreational Drug Use: No Type Used: Cigarettes 2nd Hand Smoke Exposure: Yes Recent Foreign Travel: No Recent Infectious Disease Expo: No Recent Hopitalizations: No Immunizations Up To Date Date of Pneumonia Vaccine: Nov 24, 2016 Date of Influenza Vaccine: Aug 08, 2012 Family Medical History Family History: Patient reports no known family medical history. Review of Systems-General Review of Systems Constitutional: see HPI, malaise EENTM: No see HPI, No no symptoms reported, No ear discharge, No hearing loss, No ear pain, No blurred vision, No double vision, No eye pain, No tearing, No vision loss, No dental problems, No hoarseness, No mouth pain, No mouth swelling, No epistaxis, No nose congestion, No nose pain, No throat pain, No throat swelling, No other Respiratory: see HPI; No cough, No dyspnea on exertion, No hemoptysis, No orthopnea, No phlegm, No short of breath, No stridor, No wheezing, No other Cardiovascular: see HPI; No chest pain; edema; No Hx of Intervention, No palpitations, No syncope, No vascular heart diseas, No other Gastrointestinal: No RUQ, No LUQ, No RLQ, No LLQ, No no symptoms reported, No see HPI, No abdominal pain, No constipation, No diarrhea, No dysphagia, No hematemesis, No heartburn, No jaundice, No loss of appetite, No melena, No nausea, No vomiting, No other Genitourinary: see HPI Musculoskeletal: No no symptoms reported, No see HPI, No back pain, No gout, No joint pain, No joint swelling, No muscle pain, No muscle stiffness, No muscle cramps, No muscle twitching, No muscle weakness, No neck pain, No other Skin: No no symptoms reported, No see HPI, No change in color, No change in hair/nails, No dryness, No hx of skin cancer, No lesions, No lumps, No pruritus, No rash, No other Psychiatric/Neurological: Denies No Symptoms Reported; See HPI; Denies Anxiety, Denies Depressed, Denies Emotional Problems, Denies Headache, Denies Numbness, Denies Paresthesia, Denies Pre-Existing Deficit, Denies Seizure, Denies Tingling, Denies Tremors; Weakness; Denies Other All Other Systems Reviewed Negative Unless Noted: Yes Reviewed Test Results Reviewed Test Results Lab Laboratory Tests Test 03/24/20 13:30 03/24/20 14:00 03/24/20 16:30 03/24/20 16:31 Range/Units White Blood Count 8.5 4.3-11.0 10^3/uL Red Blood Count 4.09 L 4.35-5.85 10^6/uL Hemoglobin 11.5 L 13.3-17.7 G/DL Hematocrit 33 L 40-54 % Mean Corpuscular Volume 81 80-99 FL Mean Corpuscular Hemoglobin 28 25-34 PG Mean Corpuscular Hemoglobin Concent 35 32-36 G/DL Red Cell Distribution Width 15.3 H 10.0-14.5 % Platelet Count 366 130-400 10^3/uL Mean Platelet Volume 7.0 L 7.4-10.4 FL Neutrophils (%) (Auto) 69 42-75 % Lymphocytes (%) (Auto) 22 12-44 % Monocytes (%) (Auto) 8 0-12 % Eosinophils (%) (Auto) 1 0-10 % Basophils (%) (Auto) 0 0-10 % Neutrophils # (Auto) 5.9 1.8-7.8 X 10^3 Lymphocytes # (Auto) 1.8 1.0-4.0 X 10^3 Monocytes # (Auto) 0.7 0.0-1.0 X 10^3 Eosinophils # (Auto) 0.1 0.0-0.3 10^3/uL Basophils # (Auto) 0.0 0.0-0.1 10^3/uL Prothrombin Time 15.1 H 12.2-14.7 SEC INR Comment 1.1 0.8-1.4 Sodium Level 130 L 135-145 MMOL/L Potassium Level 4.3 3.6-5.0 MMOL/L Chloride Level 93 L 98-107 MMOL/L Carbon Dioxide Level 23 21-32 MMOL/L Anion Gap 14 5-14 MMOL/L Blood Urea Nitrogen 22 H 7-18 MG/DL Creatinine 0.82 0.60-1.30 MG/DL Estimat Glomerular Filtration Rate > 60 BUN/Creatinine Ratio 27 Glucose Level 138 H 70-105 MG/DL Lactic Acid Level 0.84 0.50-2.00 MMOL/L Calcium Level 8.9 8.5-10.1 MG/DL Corrected Calcium 9.0 8.5-10.1 MG/DL Total Bilirubin 0.3 0.1-1.0 MG/DL Aspartate Amino Transf (AST/SGOT) 13 5-34 U/L Alanine Aminotransferase (ALT/SGPT) 8 0-55 U/L Alkaline Phosphatase 62 40-136 U/L Troponin I < 0.30 < 0.028 <0.028 NG/ML Total Protein 6.4 6.4-8.2 GM/DL Albumin 3.9 3.2-4.5 GM/DL Salicylates Level < 0.3 L 5.0-20.0 MG/DL Acetaminophen Level < 10 L 10-30 UG/ML Serum Alcohol < 10 <10 MG/DL Urine Color PALE YELLOW Urine Clarity SLT CLOUDY Urine pH 7.0 5-9 Urine Specific Tracy 1.010 L 1.016-1.022 Urine Protein NEGATIVE NEGATIVE Urine Glucose (UA) NEGATIVE NEGATIVE Urine Ketones NEGATIVE NEGATIVE Urine Nitrite NEGATIVE NEGATIVE Urine Bilirubin NEGATIVE NEGATIVE Urine Urobilinogen 0.2 < = 1.0 MG/DL Urine Leukocyte Esterase 3+ H NEGATIVE Urine RBC (Auto) 1+ H NEGATIVE Urine RBC RARE /HPF Urine WBC 50-100 H /HPF Urine Squamous Epithelial Cells RARE /HPF Urine Crystals NONE /LPF Urine Bacteria TRACE /HPF Urine Casts NONE /LPF Urine Mucus NONE /LPF Urine Culture Indicated YES Urine Opiates Screen NEGATIVE NEGATIVE Urine Oxycodone Screen NEGATIVE NEGATIVE Urine Methadone Screen NEGATIVE NEGATIVE Urine Propoxyphene Screen NEGATIVE NEGATIVE Urine Barbiturates Screen POSITIVE H NEGATIVE Ur Tricyclic Antidepressants Screen NEGATIVE NEGATIVE Urine Phencyclidine Screen NEGATIVE NEGATIVE Urine Amphetamines Screen NEGATIVE NEGATIVE Urine Methamphetamines Screen NEGATIVE NEGATIVE Urine Benzodiazepines Screen POSITIVE H NEGATIVE Urine Cocaine Screen NEGATIVE NEGATIVE Urine Cannabinoids Screen NEGATIVE NEGATIVE Blood Gas Puncture Site LT RAD Blood Gas Patient Temperature 36.0 Arterial Blood pH 7.42 7.37-7.43 Arterial Blood Partial Pressure CO2 38 35-45 MMHG Arterial Blood Partial Pressure O2 88 79-93 MMHG Arterial Blood HCO3 25 23-27 MMOL/L Arterial Blood Total CO2 26.1 21.0-31.0 MMOL/L Arterial Blood Oxygen Saturation 98 94-100 % Arterial Blood Base Excess 0.7 -2.5-2.5 MMOL/L Cj Test YES-POS Blood Gas Ventilator Setting NO Blood Gas Inspired Oxygen ROOM AIR B-Type Natriuretic Peptide 91.8 <100.0 PG/ML Test 03/25/20 04:50 03/25/20 05:05 Range/Units White Blood Count 6.2 4.3-11.0 10^3/uL Red Blood Count 4.30 L 4.35-5.85 10^6/uL Hemoglobin 12.0 L 13.3-17.7 G/DL Hematocrit 35 L 40-54 % Mean Corpuscular Volume 81 80-99 FL Mean Corpuscular Hemoglobin 28 25-34 PG Mean Corpuscular Hemoglobin Concent 35 32-36 G/DL Red Cell Distribution Width 15.8 H 10.0-14.5 % Platelet Count 357 130-400 10^3/uL Mean Platelet Volume 7.3 L 7.4-10.4 FL Neutrophils (%) (Auto) 70 42-75 % Lymphocytes (%) (Auto) 20 12-44 % Monocytes (%) (Auto) 10 0-12 % Eosinophils (%) (Auto) 1 0-10 % Basophils (%) (Auto) 0 0-10 % Neutrophils # (Auto) 4.3 1.8-7.8 X 10^3 Lymphocytes # (Auto) 1.2 1.0-4.0 X 10^3 Monocytes # (Auto) 0.6 0.0-1.0 X 10^3 Eosinophils # (Auto) 0.1 0.0-0.3 10^3/uL Basophils # (Auto) 0.0 0.0-0.1 10^3/uL Sodium Level 136 135-145 MMOL/L Potassium Level 4.3 3.6-5.0 MMOL/L Chloride Level 104 98-107 MMOL/L Carbon Dioxide Level 22 21-32 MMOL/L Anion Gap 10 5-14 MMOL/L Blood Urea Nitrogen 16 7-18 MG/DL Creatinine 0.78 0.60-1.30 MG/DL Estimat Glomerular Filtration Rate > 60 BUN/Creatinine Ratio 21 Glucose Level 125 H 70-105 MG/DL Calcium Level 8.9 8.5-10.1 MG/DL Corrected Calcium 9.1 8.5-10.1 MG/DL Total Bilirubin 0.3 0.1-1.0 MG/DL Aspartate Amino Transf (AST/SGOT) 58 H 5-34 U/L Alanine Aminotransferase (ALT/SGPT) 17 0-55 U/L Alkaline Phosphatase 73 40-136 U/L Total Protein 6.6 6.4-8.2 GM/DL Albumin 3.8 3.2-4.5 GM/DL Physical Exam Physical Exam Vital Signs Vital Signs - First Documented 03/24/20 13:25 Temp 36.6 Pulse 63 Resp 16 B/P (MAP) 98/53 (68) Pulse Ox 94 Capillary Refill : Less Than 3 Seconds Height, Weight, BMI Height: 5'5.00" Weight: 160lbs. 15.4oz. [id number]; 23.07 BMI Method:Estimated General Appearance: No Apparent Distress, WD/WN HEENT: PERRL/EOMI, TMs Normal, Normal ENT Inspection, Pharynx Normal Neck: Full Range of Motion, Normal Inspection, Non Tender, Supple, Carotid Bruit Respiratory: Chest Non Tender, Lungs Clear, Normal Breath Sounds, No Accessory Muscle Use, No Respiratory Distress Cardiovascular: Regular Rate, Rhythm, No Edema, No Gallop, No JVD, No Murmur, Normal Peripheral Pulses Gastrointestinal: Normal Bowel Sounds, No Organomegaly, No Pulsatile Mass, Non Tender, Soft Back: Normal Inspection, No CVA Tenderness, No Vertebral Tenderness Extremity: Normal Capillary Refill, Normal Inspection, Normal Range of Motion, Non Tender, No Calf Tenderness, No Pedal Edema Neurologic/Psychiatric: Alert, Oriented x3, No Motor/Sensory Deficits, Normal Mood/Affect Skin: Normal Color, Warm/Dry A/P-Cardiology Admission Diagnosis Acute change in mental status Coronary artery disease Hypertension Hyperlipidemia Assessment/Plan Acute change in mental status, appear to be improved at this time. No new complaint. Managed by medical team UTI, managed by primary care physician Coronary artery disease, H/o CABG in 2004 at [facility] with several stents post CABG most recently in 2011 per pt report (he reports 17 st[address]) Dr. Oconnor is his primary employee benefits attorney, has been following with him. Currently asymptomatic. Continue to monitor LVEF 55-60% and mild MR on echo of 07/23/17, continue to monitor. Hyperlipidemia, maintained on statin. Continue to monitor lipids Hypertension, continue on current medication monitor blood pressure Tobaccoism, educated on smoking cessation. COPD, managed by primary care physician Diabetes mellitus, followed and managed by primary care physician Clinical Quality Measures DVT/VTE Risk/Contraindication: Risk Factor Score Per Nursin RFS Level Per Nursing on Admit: 4+=Very High MANE VARGAS MD March 25, 2020 11:15
--- NOTE | 2020-03-25 11:16 | NUR ---
RD ASSESSMENT PMHx: COPD; emphysema; CAD; HTN; BPH; GERD; DM; AMS PT INTERACTION: Pt was awake and pleasant during nutrition assessment. Note pt has AMS, per chart review. Pt states current appetite is "so-so" and has been this way for years. Note PO intake of 38% x2meal, per chart review. Pt states following a regular diet at home, and has issues with chewing/swallowing "sometimes." Pt states no recent issues with nausea, vomiting, constipation, or diarrhea, and that his last BM was 03/23. Note pt currently on bowel regimen of senna BID, per chart review. Pt states no recent wt changes. Note recent 6# wt loss x1mon, per chart review. Pt states current DM management is "so-so" and has also been this way for some time. Note unable to determine recent HbA1c, per chart review. ABNORMAL NUTRITION-RELATED LAB VALUES LOW: HIGH: glu 125; AST 58 Est. kcal needs: 6477-9487 kcal | 25-30 kcal/kg Est. Pro needs: 59-74 g Pro | 0.8-1.0 g Pro/kg PES STATEMENT: Inadequate oral intake (NI-2.1) related to loss of appetite as evidenced by pt interview | avg PO intake 38% x2meal INTERVENTION: Continue with current diet order of Regular diet. Pt may benefit from consistent CHO restriction if blood glucose levels become elevated. Encouraged pt to eat when able. Discontinue current supplementation order of Ensure Enlive (vary) with meals TID. Add Glucerna (vary) to meals TID, for increased kcal intake. Provides 220 kcal and 10 g Pro per serving. Offered dietary education on DM management, but pt declined at this time. Will attempt to offer again prior to discharge. Will continue to follow and reassess as pt needs, intake, and status change. MONITOR/EVALUATE: PO Intake; Plan of Care; Hydration Status; Weight Status; Lab Values Mahsa Camacho, MS, RD, LD
--- NOTE | 2020-03-25 13:42 | NUR ---
CM/SS visited with patient for social service consult. Plan: The patient will return home with resumption of Home Health with [facility] in [place]. CM/SS contacted Salma from [facility] to discuss resuming the patients care. There isn't any home health orders but Salma stated they could get them from his primary care due to primary care doing the face to face. CM/SS faxed finalized discharge to agency. CM/SS informed the patient that paperwork was sent to agency. He verbalized understanding. CM/SS attempted to contact Alba to assist with finding his client care coordinator for an update. A voice mail was left with a call back number. Addendum: 03/25/20 at 1416 by [employer] Alba from [facility] contacted this ss back and stated his client care coordinator is Patti Taylor ([phone]). CM/SS will update Patti. Addendum: 03/26/20 at 1025 by [employer] On 03/26/20 Patti kamara contacted this ss and is set up with caregivers for 66 hours a week and sleep support. She is going to contact the patient to follow up. She was thankful for the call.
--- NOTE | 2020-03-25 13:47 | Physical Therapy Evaluation ---
PT Evaluation-General Medical Diagnosis Admission Date March 24, 2020 at 15:01 Medical Diagnosis: AMS Onset Date: March 24, 2020 Therapy Diagnosis Therapy Diagnosis: debility Height/Weight Height (Feet): 5 Height (Inches): 5.00 Weight (Pounds): 160 Weight (Ounces): 15.4 Precautions Precautions/Isolations: Seizure, Fall Prevention, Standard Precautions Referral Physician: Devan Reason for Referral: Evaluation/Treatment Medical History Pertinent Medical History: Arthritis, CABG, CAD, DM, GERD, HTN, IA, Smoking Current History EMS secondary to lethargy and weakness/31/05 care at home Reviewed History: Yes Social History Home: Single Level Current Living Status: 31/05 care Prior Prior Level of Function SCALE: Activities may be completed with or without assistive devices. 1-Vksgfsnccn-vpmrbwg completes the activity by him/herself with no assistance from a helper. 5-Set-up or Clean-up Assistance-helper sets up or cleans up; patient completes activity. [place] assists only prior to or following the activity. 4-Supervision or Touching Assistance-helper provides verbal cues and/or touching/steadying and/or contact guard assistance as patient completes activity. Assistance may be provided throughout the activity or intermittently. 3-Partial/Moderate Assistance-helper does LESS THAN HALF the effort. [place] lifts, holds or supports trunk or limbs, but provides less than half the effort. 2-Substantial/Maximal Assistance-helper does MORE THAN HALF the effort. [place] lifts or holds trunk or limbs and provides more than half the effort. 4-Fwlxxosrt-sblwxp does ALL the effort. Patient does none of the effort to complete the activity. Or, the assistance of 2 or more helpers is required for the patient to complete the activity. If activity was not attempted, code reason: 7-Patient Refused. 9-Not Applicable-not attempted and the patient did not perform the activity before the current illness, exacerbation or injury. 10-Not Attempted due to Environmental Limitations-(lack of equipment, weather restraints, etc.). 88-Not Attempted due to Medical Conditions or Safety Concerns. Bed Mobility: 5 Transfers (B,C,W/C): 5 Gait: 5 Stairs: 9 Indoor Mobility (Ambulation): Needed Some Help Prior Devices Use: Walker PT Evaluation-Current Subjective Patient agrees to PT. He reports he is going home today. Pain Numeric Pain Scale: 0-No Pain Location: No Pain Reported Objective Patient Orientation: Normal For Age Attachments: [place] Catheter, IV ROM/Strength ROM Lower Extremities noted left LE leg length but WFL/right LE WFL Strength Lower Extremities 3+/5 grossly bilateral LE Integumentary/Posture Integumentary refer to nursing notes Bowel Incontinence: No Bladder Incontinence: [place] Cath Posture WFL Neuromuscular (Tone, Coordination, Reflexes) grossly intact Sensory Vision: Functional Hearing: Impaired Sensation Right Lower Extremit: Intact Sensation Left Lower Extremity: Intact Transfers Roll Left to Right (QC): 5 Lying to Sitting/Side of Bed(Q: 5 Sit to Stand (QC): 4 Chair/Xjo-vd-Ajjke Xfer(QC): 4 Toilet Transfer (QC): 4 Gait Does the Patient Walk?: Yes Mode of Locomotion: Walk Anticipated Mode of Locomotion: Walk Walk 10 feet (QC): 4 Walk 50 ft with 2 Turns(QC): 4 Walk 150 ft (QC): 88 Gait Assistive Device: FWW Comments/Gait Description CGA for safety Balance Sitting Static: Normal Sitting Dynamic: Normal Standing Static: Fair Standing Dynamic: Fair Assessment/Needs 69 y.o. male, will be seen short term by skilled PT to address functional mobility to ensure safe return to home with 31/05 caregivers. Rehab Potential: Fair PT Short Term Goals Short Term Goals Time Frame: March 30, 2020 Roll Left & Right: 5 Sit to lyin Lying to sitting on side of be: 5 Sit to stand: 5 Chair/sup-ce-xribs transfer: 5 Toilet transfer: 5 Car transfer: 5 Walk 10 feet: 5 Walk 50 feet with two turns: 5 PT Plan Problem List Problem List: Activity Tolerance, Balance, Gait Treatment/Plan Treatment Plan: Continue Plan of Care Treatment Plan: Bed Mobility, Education, Functional Activity Daniel, Functional Strength, Gait, Safety, Therapeutic Exercise, Transfers Treatment Duration: March 30, 2020 Frequency: 5 times per week Estimated Hrs Per Day: .25 hour per day Patient and/or Family Agrees t: Yes Discharge Recommendations Therapy Discharge Recommendati: 24 Hour Supervision Time/GCodes Time In: 1250 Time Out: 1304 Total Billed Treatment Time: 14 Total Billed Treatment 1 visit EVLow 14 min MINERVA STEWART PT March 25, 2020 13:47
[2020-03-25 13:57] VITALS: BP 146/72
== END 2020-03-25 13:50 | disposition home health service (06) | DRG 641 ==
LOC: EDUNIT# 13:24 → ER FS 13:25 → 4TH 15:01
PROVIDERS: ADMIT Internal Medicine; ATTEND Internal Medicine
DX: E87.1 Hypo-osmolality and hyponatremia (principal); N39.0 Urinary tract infection, site not specified; R00.1 Bradycardia, unspecified; E11.9 Type 2 diabetes mellitus without complications; J43.9 Emphysema, unspecified; I25.10 Atherosclerotic heart disease of native coronary artery without angina pectoris; E78.00 Pure hypercholesterolemia, unspecified; I10 Essential (primary) hypertension; G40.909 Epilepsy, unspecified, not intractable, without status epilepticus; N40.0 Benign prostatic hyperplasia without lower urinary tract symptoms; K21.9 Gastro-esophageal reflux disease without esophagitis; M19.91 Primary osteoarthritis, unspecified site; F41.9 Anxiety disorder, unspecified; F31.9 Bipolar disorder, unspecified; Z87.891 Personal history of nicotine dependence; Z95.1 Presence of aortocoronary bypass graft; Z95.5 Presence of coronary angioplasty implant and graft; Z90.49 Acquired absence of other specified parts of digestive tract
CPT/HCPCS: 36415; 36600; 51702; 70450; 71045; 80053; 80185; 80306; 80320; 80329; 81000; 82805; 83605; 83880; 84484; 85025; 85610; 87077; 87088; 93005; 96374; 96375

== ENCOUNTER → 2020-05-22 | Outpatient (CLI) | payer MEDICARE, MEDICAID ==
[~2020-05-22] MED LIST changes: +CEFD300C3 PO; +FLUC100T PO; -NALOXONE 0.4 MG/ML 1 ML (NARCAN) VIAL ONE
[2020-05-22 16:08] LABS: BUN/CREATININE RATIO 27; CARBON DIOXIDE 25 MMOL/L (21-32); CHLORIDE 90 MMOL/L (98-107); CREATININE SERUM 0.81 MG/DL (0.60-1.30); GFR ESTIMATED > 60; GLUCOSE 122 MG/DL (70-105); POTASSIUM 4.7 MMOL/L (3.6-5.0); SODIUM 127 MMOL/L (135-145)
[2020-05-22 16:09] LABS: CALCIUM 9.3 MG/DL (8.5-10.1)
== END ==
LOC: LAB FS 15:06
PROVIDERS: ATTEND Urology
DX: N40.0 Benign prostatic hyperplasia without lower urinary tract symptoms (principal)
CPT/HCPCS: 36415; 80048; 84153

== ENCOUNTER 2020-06-04 15:05 | Emergency (ER) | payer MEDICARE, MEDICAID ==
[~2020-06-04] VITALS: Ht 160 cm; Wt 74.2 kg
[2020-06-04 15:14] VITALS: BP 151/71
--- NOTE | 2020-06-04 15:18 | ED General ---
General Chief Complaint: General Problems/Pain Stated Complaint: JAW PAIN Source of Information: Patient, EMS, Old Records History of Present Illness Date Seen by Provider: Jun 04, 2020 Time Seen by Provider: 15:00 Initial Comments This patient is a 69-year-old male with a long medical history presents to the emergency department complaining of jaw pain for 1-2 months. Patient has been seen multiple times by his PCP for the same pain in the right jaw. Patient is currently on pain medications for the same. Patient has no new complaints. Denies chest pain denies dizziness denies visual problems denies source breath and denies cough. Patient states his chronic pain and takes oxycodone and OxyContin at home. Physical exam does not reveal any root cause of his chronic jaw pain. We'll review medical records and evaluate treat further needed. Severity: Mild Associated Systoms: No Denies Symptoms, No Chest Pain, No Cough, No Diaphoresis, No Fever/Chills, No Headaches, No Loss of Appetite, No Malaise, No Nausea/Vomiting, No Rash, No Seizure, No Shortness of Air, No Syncope, No Weakness, No Other Allergies and Home Medications Allergies Coded Allergies: Penicillins (Verified Allergy, Unknown, 04/22/17) diazepam (Unverified Allergy, Unknown, 03/07/17) doxycycline (Unverified Allergy, Unknown, RASH, 03/07/17) phenobarbital (Unverified Allergy, Unknown, 03/07/17) RELAXES ME TOO MUCH piperacillin (Unverified Allergy, Unknown, RASH, PT HAS RECEIVED CEFAZOLIN IN THE PAST W/O ISSUE, 03/08/17) sulfamethoxazole (Verified Allergy, Unknown, 04/22/17) terazosin (Unverified Allergy, Unknown, 03/07/17) CHEST PAIN Home Medications Albuterol Sulfate 1 Puff Puff, 2 PUFF INH Q4H PRN for SHORTNESS OF BREATH, (Reported) Aspirin 81 Mg Tablet.dr, 81 MG PO DAILY, (Reported) Bethanechol Chloride 25 Mg Tablet, 25 MG PO QID, (Reported) Cefdinir 300 Mg Capsule, 300 MG PO BID Prescribed by: CARLOS ESCOTO on 03/25/20 1055 Clopidogrel Bisulfate 75 Mg Tablet, 75 MG PO DAILY, (Reported) Ezetimibe 10 Mg Tablet, 10 MG PO HS, (Reported) Fenofibrate Nanocrystallized 145 Mg Tablet, 145 MG PO DAILY, (Reported) Fentanyl 1 Each Patch.td72, 50 MCG TD Q72H Prescribed by: CARLOS ESCOTO on 07/26/17945 Ferrous Sulfate 325 Mg Tablet, 325 MG PO DAILY Prescribed by: CARLOS ESCOTO on 07/26/17945 Fluconazole 100 Mg Tablet, 100 MG PO DAILY Prescribed by: CARLOS ESCOTO on 03/25/20 1055 Fluoxetine HCl 20 Mg Capsule, 40 MG PO DAILY, (Reported) TAKES 2 (20MG) CAPSULES Fluticasone Propionate 1 Ea Aero, 1 PUFF INH BID, (Reported) Fluticasone Propionate 16 Gm [place].susp, 2 SPRAYS NS DAILY, (Reported) Gabapentin 300 Mg Capsule, 300 MG PO HS, (Reported) Isosorbide Mononitrate 60 Mg Tab, 60 MG PO BID, (Reported) Lactulose 20 Gm/30 Ml Solution, 10 GM PO BID Prescribed by: CARLOS ESCOTO on 07/26/17946 Lorazepam 1 Mg Tablet, 1 MG PO BID, (Reported) Multivitamin 1 Each Capsule, 1 CAP PO DAILY, (Reported) Nitroglycerin 0.4 Mg Tab.subl, 0.4 MG SL UD PRN for CHEST PAIN, (Reported) Olanzapine 2.5 Mg Tablet, 2.5 MG PO HS, (Reported) Oxycodone HCl 20 Mg Tab.er.12h, 20 MG PO BID Prescribed by: CARLOS ESCOTO on 07/26/17945 Oxycodone HCl/Acetaminophen 1 Each Tablet, 1 TAB PO Q4H PRN for BREAKTHROUGH PAIN Prescribed by: CARLOS ESCOTO on 07/26/17945 Phenytoin Sodium Extended 100 Mg Capsule, 200 MG PO BID, (Reported) TAKES 2 (100MG) CAPSULES Pioglitazone HCl 30 Mg Tablet, 30 MG PO DAILY, (Reported) Ramipril 10 Mg Capsule, 10 MG PO DAILY, (Reported) Ranitidine HCl 150 Mg Tablet, 150 MG PO HS, (Reported) Sennosides/Docusate Sodium 1 Each Tablet, 1 EA PO BID Prescribed by: CARLOS ESCOTO on 07/26/17946 Simvastatin 40 Mg Tablet, 40 MG PO 1800, (Reported) Tamsulosin HCl 0.4 Mg Cap, 0.4 MG PO HS, (Reported) Temazepam 7.5 Mg Capsule, 7.5 MG PO HS PRN for INSOMNIA, (Reported) Timolol 5 Ml Drops, 1 DROP OU BID, (Reported) 0.5% Trazodone HCl 50 Mg Tablet, 50 MG PO HS, (Reported) Patient Home Medication List Home Medication List Reviewed: Yes Review of Systems Review of Systems Constitutional: No no symptoms reported, No see HPI, No chills, No diaphoresis, No dizziness, No fever, No malaise, No weakness, No weight gain, No weight loss, No other EENTM: mouth pain, other Respiratory: No no symptoms reported, No see HPI, No cough, No dyspnea on exertion, No hemoptysis, No orthopnea, No phlegm, No short of breath, No stridor, No wheezing, No other Cardiovascular: No no symptoms reported, No see HPI, No chest pain, No edema, No Hx of Intervention, No palpitations, No syncope, No vascular heart diseas, No other Gastrointestinal: No RUQ, No LUQ, No RLQ, No LLQ, No no symptoms reported, No see HPI, No abdominal pain, No constipation, No diarrhea, No dysphagia, No hematemesis, No heartburn, No jaundice, No loss of appetite, No melena, No nausea, No vomiting, No other Genitourinary: No no symptoms reported, No see HPI, No decreased output, No discharge, No dysuria, No frequency, No hematuria, No hesitancy, No incontinence, No nocturia, No pain, No other Musculoskeletal: No no symptoms reported, No see HPI, No back pain, No gout, No joint pain, No joint swelling, No muscle pain, No muscle stiffness, No muscle cramps, No muscle twitching, No muscle weakness, No neck pain, No other Past Ciwkmjf-Kqohfs-Wusfyp Hx Patient Social History Type Used: Cigarettes 2nd Hand Smoke Exposure: Yes Recent Hopitalizations: No Immunizations Up To Date Date of Pneumonia Vaccine: Nov 24, 2016 Date of Influenza Vaccine: Aug 08, 2012 Seasonal Allergies Seasonal Allergies: No Past Medical History Surgeries: Yes Appendectomy, Cardiac, CABG, Coronary Stent, Gallbladder, Orthopedic, Penile Implant, Renal, Transurethral Resection Respiratory: Yes Asthma, COPD, Emphysema Currently Using CPAP: No Currently Using BIPAP: No Cardiac: Yes (CABG IN 1999; 16 CARDIAC STENTS) Coronary Artery Disease, High Cholesterol, Hypertension Neurological: Yes Headaches /Migraines, Seizure Disorder Reproductive Disorders: Yes (ED--PENILE IMPLANT) Sexually Transmitted Disease: No HIV/AIDS: No Genitourinary: Yes Benign Prostatic Hyperpl, Kidney Stones Gastrointestinal: Yes Gastroesophageal Reflux, Ulcer Musculoskeletal: Yes Arthritis Endocrine: Yes Diabetes, Non-Insulin dep HEENT: Yes Cataract, Glaucoma Loss of Vision: Denies Hearing Impairment: Hard of Hearing Cancer: No Psychosocial: Yes Anxiety, Bipolar, Depression Integumentary: No Blood Disorders: No Adverse Reaction/Blood Tranf: No Family Medical History Patient reports no known family medical history. Physical Exam Vital Signs Capillary Refill : Height, Weight, BMI Height: 5'5.00" Weight: 160lbs. 15.4oz. 73.699768sr; 23.07 BMI Method:Estimated General Appearance: No Apparent Distress, WD/WN HEENT: PERRL/EOMI, TMs Normal, Normal ENT Inspection, Pharynx Normal, Other (pain on palpation of the TMJ joint. Patient has no obvious signs of dental abscess or any abnormalities inside the oral cavity.) Respiratory: Chest Non Tender, Lungs Clear, Normal Breath Sounds, No Accessory Muscle Use, No Respiratory Distress Cardiovascular: Regular Rate, Rhythm, No Edema, No Gallop, No JVD, No Murmur, Normal Peripheral Pulses Gastrointestinal: Normal Bowel Sounds, No Organomegaly, No Pulsatile Mass, Non Tender, Soft Neurologic/Psychiatric: Alert Skin: Normal Color, Warm/Dry Progress/Results/Core Measures Suspected Sepsis SIRS Temperature: Pulse: Respiratory Rate: Blood Pressure / Mean: Results/Orders Vital Signs/I&O Capillary Refill : Progress Note : Time: 15:16 Progress Note Patient is having complaint of right jaw pain/TMJ for over a month close to 2 months. Patient has been seen by his PCP multiple times. Patient does take chronic pain medications including oxycodone and OxyContin 20 mg. Patient also takes antianxiety medications. Patient does not appear to have any acute oral abnormalities. Did discuss at length with patient. Patient is on multiple medications for pain and anxiety. Patient is also on aspirin and Plavix. Patient should wear mouthguard/mouthpiece as tolerated due to TMJ pain. Patient is to continue his narcotic pain medication and benzodiazepine medication to help with this pain. Patient is to follow-up with his primary care physician and also needs to be referred to ENT for further evaluation. Patient may alternate heat and ice as needed as tolerable to affected area. Departure Impression Primary Impression: TMJ arthralgia Additional Impression: Chronic pain Disposition: 01 HOME, SELF-CARE Condition: Stable Departure-Patient Inst. Decision time for Depature: 15:19 Referrals: LOUANN COREY MD (PCP/Family) Primary Care Physician Patient Instructions: Temporomandibular Joint (TMJ) Disorders (DC), Chronic Pain (DC) Add. Discharge Instructions: Patient should wear mouthguard/mouthpiece as tolerated due to TMJ pain. Patient is to continue his narcotic pain medication and benzodiazepine medication to help with this pain. Patient is to follow-up with his primary care physician and also needs to be referred to ENT for further evaluation. Patient may alternate heat and ice as needed as tolerable to affected area. All discharge instructions reviewed with patient and/or family. Voiced understanding. ASHTYN GATES MD Jun 04, 2020 15:18
--- OUTSIDE RECORDS SUMMARY | 2020-06-04 19:29 | XMS REPORT ---
Author Author Oliverio COREY Organization [facility] Address [address] [place] [address] Care Team Providers Care Farm General Manager Name Role Phone LOUANN COREY Unavailable PROBLEMS Type Condition ICD9-CM Code JPF89-CD Code Onset Dates Condition S tatus SNOMED Code Problem Unspecified glaucoma(365.9) H40.9 Ac tive 13366865 Problem Hypertrophy of prostate with out urinary obstruction and other lower urinary tract symptoms (LUTS) N40.0 Active 614925759 Problem Status post colonoscopy Z98.890 Jan, Act humberto 918087878832 Problem Osteoarthritis of right knee M17.11 Oct, 2 Active 829695455 Problem Tubular adenoma D36.9 Jan, Active 1 1948549 Problem Cigarette nicotine dependence, uncomplicated F1 7.210 Aug, Active 305560391 Problem Back pain M54.9 Oct, Active 3008251 05 Problem Essential hypertension I10 Active 90467903 Problem Hyponatremia E87.1 Apr, Active 8962 7008 Problem Hyperlipidemia E78.5 Nov, Active 55 944615 Problem COPD (chronic obstructive pulmonary disease) J4 4.9 Apr, Active 50942141 Problem Major depression F32.9 Dec, Active 400798113 Problem Acute cystitis without hematuria N30.00 Apr, Active 47829765 Problem CAD (coronary artery disease) I25.10 18 Apr, 20 13 Active 98505380 Problem Right lateral epicondylitis M77.11 May, Active 175154982126098 Problem Renal stone N20.0 Oct, Active 32094 007 Problem Seizure disorder G40.909 Apr, Active 511245974 Problem Bipolar 1 disorder, depressed F31.9 Active 43681861 Problem LFT elevation R94.5 Oct, Active 672 93911 Problem Hypomagnesemia E83.42 Active 24678 5004 Problem Umbilical hernia without mention of obstruction or hanna grene K42.9 May, Active 566212095 Problem Stable angina I20.8 Dec, Active 233 405256 Problem Carpal tunnel syndrome G56.00 Nov, Acti ve 40407944 Problem Gastroesophageal reflux disease without esophagitis K21.9 Active 588861473 Problem Neurogenic bladder N31.9 Active 3 44127480 Problem Type 2 diabetes mellitus wit h other specified complication, without long-term current use of insulin E11.69 Active 92984719 ALLERGIES No Information ENCOUNTERS Encounter Location Date Diagnosis [address] [id number], [place] [address] Jun, [address] [id number], [place] [address] March, Back pain M54.[address] [id number], [place] [address] March, [address] [id number], [place] [address] Feb, Acute non-recurrent maxillar y sinusitis J01.[address] [id number], [place] [address] Feb, Acute cystitis with hematuri a N30.[address] [id number], [place] [address] Feb, [address] [id number], [place] [address] Feb, Acute cystitis with hematuri a N30.[address] [id number], [place] [address] Feb, [address] [id number], [place] [address] Feb, Bipolar disorder F31.[address] [id number], [place] [address] Feb, Acute cystitis with hematuri a N30.01 ; Type 2 diabetes mellitus with other specified complication, without long-term current use of insulin E11.69 and Seizure disorder G40.[address] [id number] [place] [address] 08 Feb, 2020 Back pain M54.9 [place] [address] [id number] [place] [address] 06 Feb, 2020 [facility] [address] [facility] [id number] [address] [place] [address] 02 Feb, 2020 [facility] [address] [place] [address] [facility] [id number] [place] [address] 31 Jan, 2020 [place] [address] [id number], [place] [address] 30 Jan, 2020 High risk medications (not a nticoagulants) long-term [...] N40.0 and Bilious vomiting with nausea R11.[address] [id number] [place] [address] 24 Jan, 2020 Seizure disorder G40.[address] [id number], [place] [address] Jan, [address] [id number], [place] [address] 11 Jan, 2020 Gastroesophageal reflux dise ase without esophagitis K21.[address] [id number] [place] [address] Jan, [facility] [address] [id number], [place] [address] Dec, [address] [id number], [place] [address] Dec, [address] 340 [id number], [place] [address] Dec, [address] [id number], [place] [address] Dec, [address] 340 [id number], [place] [address] Dec, [facility] [address] [facility] [id number] [address] [place] [address] Dec, [address] 340 [id number], [place] [address] Dec, [address] [id number], [place] [address] Dec, Seizure disorder G40.909 and Hypomagnesemia E83.[address] [id number], [place] [address] 10 Dec, 2019 Neurogenic bladder N31.9 and Frequency of urination R35.[address] [id number], [place] [address] 05 Dec, 2019 Cigarette nicotine dependenc e, uncomplicated F17.[address] [id number], [place] [address] Nov, Gastroesophageal reflux dise ase without esophagitis K21.[address] [id number], [place] [address] Nov, [address] [id number], [place] [address] Nov, Encounter for Medicare prachi pierre wellness exam Z00.00 ; Hypertension I10 ; COPD (chronic obstructive pulmonary disease) J44.9 ; Type 2 diabetes mellitus with other specified complication, without long-term current use of insulin E11.69 and Hyperlipemia E78.5 [facility] [address] [facility] [id number] [address] [place] [address] 14 Nov, [address] 340 [id number], [place] [address] 09 Nov, 2019 [facility] [address] [facility] [id number] [place] [address] 07 Nov, 2019 Gastroesophageal reflux dise ase without esophagitis K21.[address] [id number], [place] [address] 07 Nov, [address] [id number] [place] [address] Oct, High risk medications (not a nticoagulants) long-term use Z79.[address] [id number], [place] [address] 19 Oct, [address] [id number], [place] [address] Oct, High risk medications (not a nticoagulants) long-term use Z79.[address] [id number], [place] [address] 13 Oct, [address] [id number], [place] [address] 11 Oct, 2019 Hypertension I10 ; Type 2 di abetes mellitus with other specified complication, without long-term current use of insulin E11.69 ; Bipolar 1 disorder, depressed F31.9 and Neurogenic bladder N31.[address] [id number] [place] [address] Oct, [address] [id number], [place] [address] Sep, High risk medications (not a nticoagulants) long-term use Z79.899 [facility] [address] [id number] [place] [address] Sep, [facility] [address] [id number] [place] [address] Sep, High risk medications (not a nticoagulants) long-term use Z79.899 [facility] [address] [id number] [place] [address] Aug, [facility] [address] 340 [id number], [place] [address] Aug, Encounter for immunization Z 23 ; Impacted cerumen of both ears H61.23 and Type 2 diabetes mellitus with other specified complication, without long-term current use of insulin E11.69 [facility] [address] 340 [id number], [place] [address] Aug, COPD (chronic obstructive pu lmonary disease) J44.9 [employer] [address] [place] [id number] Aug COPD (chronic obstructive pulmonary disease) J44.9 and Muscle cramps R25.2 [facility] [address] 340 [id number] [place] [address] Aug, [facility] [address] 340 [id number] [place] [address] Aug, [facility] [address] [facility] [id number] [address] [place] [address] Jul, [facility] [address] 340 [id number], [place] [address] Jul, High risk medications (not a nticoagulants) long-term use Z79.899 [facility] [address] [id number] [place] [address] Jul, [facility] [address] 340 [id number] [place] [address] Jul, Hypertension I10 [address] [id number] [place] [address] Jul, High risk medications (not a nticoagulants) long-term use Z79.899 ; Coronary artery disease I25.10 ; Hyperlipemia E78.5 ; Bipolar 1 disorder, depressed F31.9 ; Bipolar disorder F31.9 and Type 2 diabetes mellitus E11.[address] [id number], [place] [address] Jul, [address] [id number], [place] [address] Jul, Seizure disorder G40.909 ; H igh risk medications (not anticoagulants) long-term use Z79.899 ; Type 2 diabetes mellitus with other specified complication, without long-term current use of insulin E11.69 ; Bipolar 1 disorder, depressed F31.9 and Chronic obstructive airway disease J44.[address] [id number], [place] [address] Jul, [facility] [address] [facility] [id number] [address] [place] [address] Jun, [address] [id number], [place] [address] Jun, Rash R21 ; Bipolar 1 disorde r, depressed F31.9 ; Type 2 diabetes mellitus E11.9 ; Hypertension I10 ; Lesion of left shoulder M75.92 ; Bipolar disorder F31.9 ; Coronary artery disease I25.10 and Hyperlipemia E78.[address] [id number], [place] [address] May, Bipolar 1 disorder, depresse d F31.[address] [id number], [place] [address] May, [address] [id number], [place] [address] May, Rash R21 [facility] [address] [id number] [place] [address] May, [facility] [address] [id number] [place] [address] Apr, [facility] [address] [id number] [place] [address] Apr, Bipolar 1 disorder, depresse d F31.9 ; Rash R21 and Type 2 diabetes mellitus with other specified complication, without long-term current use of insulin E11.69 [facility] [address] [id number] [place] [address] Apr, [facility] [address] [id number] [place] [address] Apr, [facility] [address] [id number] [place] [address] March, [facility] [address] [id number] [place] [address] March, [facility] [address] [id number], [place] [address] March, [facility] [address] [id number] [place] [address] March, Cellulitis of other specifie d site L03.818 and Lesion of left shoulder M75.92 [facility] [address] [facility] [id number] [address] [place] [address] March, [facility] [address] [id number] [place] [address] Feb, [facility] [address] [id number] [place] [address] Feb, [facility] [address] [id number] [place] [address] Feb, [facility] [address] [id number] [place] [address] Feb, [facility] [address] [id number] [place] [address] Feb, [facility] [address] [id number] [place] [address] Feb, Open wound of right upper ar m, subsequent encounter S41.101D ; CAD (coronary artery disease) 414.00 ; Hypertension I10 ; COPD (chronic obstructive pulmonary disease) J44.9 and CAD (coronary artery disease) I25.10 [facility] [address] [id number] [place] [address] Jan, Abrasion of arm, right S40.8 11A [facility] [address] [id number] [place] [address] Jan, [facility] [address] [facility] [id number] [address] [place] [address] Jan, Bilious vomiting with nausea R11.14 [facility] [address] [id number], [place] [address] Jan, [facility] [address] [id number], [place] [address] Dec, [facility] [address] [facility] [id number] [address] [place] [address] Dec, [facility] [address] [facility] [id number] [address] [place] [address] Dec, [address] [id number], [place] [address] Dec, Itching L29.9 ; Bilious vomi ting with nausea R11.14 ; Hypertension I10 ; Neurogenic bladder N31.9 ; Bipolar disorder F31.9 ; Hyperlipemia E78.5 ; Type 2 diabetes mellitus E11.9 and Coronary artery disease I25.10 [facility] [address] [facility] [id number] [address] [place] [address] Dec, [address] [id number] [place] [address] Dec, Gastroesophageal reflux dise ase without esophagitis K21.9 [facility] [address] [facility] [id number] [address] [place] [address] Nov, [facility] [address] [facility] [id number] [address] [place] [address] Oct, [facility] [address] [facility] [id number] [address] [place] [address] Oct, [facility] [address] [facility] [id number] [address] [place] [address] Sep, [facility] [address] [facility] [id number] [address] [place] [address] Aug, IMMUNIZATIONS No Known Immunizations SOCIAL HISTORY Never Assessed REASON FOR VISIT Controlled Med Refill PLAN OF CARE VITAL SIGNS MEDICATIONS Medication Instructions Dosage Frequency Start Date End Date Duration S tatus OxyContin 20 MG Orally 2 times a day 1 tablet 12h Feb, 28 days Active RESULTS No Results PROCEDURES No Known [...]
--- OUTSIDE RECORDS SUMMARY | 2020-06-04 19:29 | XMS REPORT | Clinical Summary ---
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 If you d o not see the information that you expected, contact Release of Information in [facility] Information Management department at [phone] for further assistan ce in locating additional records.[facility] Allergies Comments Active Allergy Reactions [...] [facility] P[facility]. 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
--- OUTSIDE RECORDS SUMMARY | 2020-06-04 19:31 | XMS REPORT | Continuity of Care Document ---
Author Organization Unknown Address Unknown Phone Unavailable Allergies Active Description Code Type Severity Reaction Onset Reported/Identified Relationship to Patient Clinical Status Yes codeine [id number] Drug Allergy Unknown N/A 03/07/2017 Yes diazepam [id number] Drug Allergy Unknown N/A 03/07/2017 Yes doxycycline [id number] Drug Aller gy Unknown RASH 03/07/2017 Yes phenobarbital [id number] Erich g Allergy Unknown N/A 03/07/2017 Yes piperacillin [id number] Drug Allergy Unknown RASH 03/07/2017 Yes terazosin [id number] Drug Allergy Unknown N/A 03/07/2017 Yes piperacillin [id number] Drug Allergy Unknown RASH, PT HAS RE 03/08/2017 Yes codeine [id number] Drug Allergy Mild N/A 03/09/2017 Yes Penicillins [id number] Drug Aller gy Unknown N/A 04/22/2017 Yes sulfamethoxazole [id number] Drug Allergy Unknown N/A 04/22/2017 Medications There [...] DO Ot I25.10 ATHSCL HEART DISEASE OF [place] CORONARY 03/09/2017 SARY MCCRARY DO, Ot J44.9 [...] MCCRARY DO Ot Y92.[address] IN [facility] NON-INSTITUTIONAL RESI 03/09/2017 SARY MCCRARY DO Ot [...] DO Ot I25.10 ATHSCL HEART DISEASE OF [place] CORONARY 03/10/2017 SARY MCCRARY DO Ot J44.9 [...] DO Ot I25.10 ATHSCL HEART DISEASE OF [place] CORONARY 03/10/2017 SARY MCCRARY DO Ot J44.9 [...] DO Ot I25.10 ATHSCL HEART DISEASE OF [place] CORONARY 03/11/2017 SARY MCCRARY DO Ot J44.9 [...] Ot I25.1 0 ATHSCL HEART DISEASE OF [place] CORONARY 03/24/2017 RON KINNEY MD, Ot J44.9 [...] CARLOS Ot I25.10 ATHSCL HEART DISEASE OF [place] CORONARY 04/26/2017 JEVON MCMILLAN CARLOS Ot J44.9 [...] UNSPECIFIED 04/26/2017 JEVON MCMILLAN CARLOS Ot Z79.84 MEDICAL SALES ASSOCIATE (CURRENT) USE OF ORAL HYPOGLYC 04/26/2017 JEVON MCMILLAN ACRLOS Ot Z79.89 1 CORRECTION (CURRENT) USE OF OPIATE ANALGE 04/26/2017 JEVON [...] CARLOS Ot I25.10 ATHSCL HEART DISEASE OF [place] CORONARY 04/26/2017 JEVON MCMILLAN CARLOS Ot J44.9 [...] UNSPECIFIED 04/26/2017 JEVON MCMILLAN CARLOS Ot Z79.84 MEDICAL SALES ASSOCIATE (CURRENT) USE OF ORAL HYPOGLYC 04/26/2017 JEVON MCMILLAN CARLOS Ot Z79.89 1 MEDICAL SALES ASSOCIATE (CURRENT) USE OF OPIATE ANALGE 04/26/2017 JEVON [...] DO Ot I25.10 ATHSCL HEART DISEASE OF [place] CORONARY 04/26/2017 CARLOS ESCOTO DO Ot J44.9 [...] TRACT INFECTION, SITE NOT SPECIF 04/26/2017 CARLOS SECOTO DO Ot R33.9 RETENTION OF URINE, UNSPECIFIED 04/26/2017 CARLOS ESCOTO DO Ot Z79.84 CORRECTION (CURRENT) USE OF ORAL HYPOGLYC 04/26/2017 CARLOS ESCOTO DO Ot Z79.89 1 CORRECTION (CURRENT) USE OF OPIATE ANALGE 04/26/2017 CARLOS [...] DO Ot I25.10 ATHSCL HEART DISEASE OF [place] CORONARY 07/26/2017 CARLOS ESCOTO DO Ot I34.0 [...] DO Ot Y92.[address] [facility] NON-INSTITUT (PRIVATE 07/26/2017 JEVON MCMILLAN CARLOS Ot [...] I10 ESSENTIAL (PRIMARY) HYPERTENSION 01/29/2019 THEODORE DO, YSL L Ot I25.1 0 ATHSCL HEART DISEASE OF [place] CORONARY 01/29/2019 THEODORE DO, SYL L Ot [...] THEODORE DO, SYL L Ot Z79.0 2 CORRECTION (CURRENT) USE OF ANTITHROMBOTI 01/29/2019 THEODORE DO, SYL L Ot Z79.5 1 CORRECTION (CURRENT) USE OF INHALED STERO 01/29/2019 THEODORE DO, SYL L Ot Z79.8 2 MEDICAL SALES ASSOCIATE (CURRENT) USE OF ASPIRIN 01/29/2019 THEODORE DO, [...] Ot I25.1 0 ATHSCL HEART DISEASE OF [place] CORONARY 01/31/2019 THEODORE DO, SYL L Ot [...] THEODORE DO, SYL L Ot Z79.0 2 CORRECTION (CURRENT) USE OF ANTITHROMBOTI 01/31/2019 THEODORE DO, SYL L Ot Z79.5 1 CORRECTION (CURRENT) USE OF INHALED STERO 01/31/2019 THEODORE DO, SYL L Ot Z79.8 2 MEDICAL SALES ASSOCIATE (CURRENT) USE OF ASPIRIN 01/31/2019 THEODORE DO, [...] DO, Ot I25.10 ATHSCL HEART DISEASE OF [place] CORONARY 06/05/2019 CHICHI CARDENAS DO, Ot J43.9 [...] ENCOUNTER 06/05/2019 CHICHI CARDENAS DO, Ot Y92.[address] [facility] [address] [facility] NON-INSTITUT (PRIVATE 06/05/2019 CHICHI CARDENAS DO, Ot Z79.02 MEDICAL SALES ASSOCIATE (CURRENT) USE OF ANTITHROMBOTI 06/05/2019 CHICHI CARDENAS DO, Ot Z79.51 MEDICAL SALES ASSOCIATE (CURRENT) USE OF INHALED STERO 06/05/2019 CHICHI CARDENAS DO, Ot Z79.82 CORRECTION (CURRENT) USE OF ASPIRIN 06/05/2019 CHICHI CARDENAS [...] DO, Ot I25.10 ATHSCL HEART DISEASE OF [place] CORONARY 06/07/2019 CHICHI CARDENAS DO, Ot J43.9 [...] ENCOUNTER 06/07/2019 CHICHI CARDENAS DO, Ot Y92.[address] [facility] [address] IN [facility] NON-INSTITUT (PRIVATE 06/07/2019 CHICHI CARDENAS DO, Ot Z79.02 MEDICAL SALES ASSOCIATE (CURRENT) USE OF ANTITHROMBOTI 06/07/2019 CHICHI CARDENAS DO, Ot Z79.51 CORRECTION (CURRENT) USE OF INHALED STERO 06/07/2019 CHICHI CARDENAS DO, Ot Z79.82 MEDICAL SALES ASSOCIATE (CURRENT) USE OF ASPIRIN 06/07/2019 CHICHI CARDENAS [...] 12/19/2019 LOUANN COREY MD Ot Z79.899 OTHER CORRECTION (CURRENT) DRUG THERAPY 12/20/2019 ALBERT KNOTT MD Ot N40.1 BENIGN PROSTATIC HYPERPLASIA WITH LOWER 12/20/2019 LOUANN COREY MD Ot Z01.89 ENCOUNTER FOR OTHER SPECIFIED SPECIAL EX 12/20/2019 LOUANN COREY MD Ot Z79.899 OTHER CORRECTION (CURRENT) DRUG THERAPY 12/24/2019 LOUANN COREY MD Ot Z01.89 ENCOUNTER FOR OTHER SPECIFIED SPECIAL EX 12/24/2019 LOUANN COREY MD Ot Z79.899 OTHER MEDICAL SALES ASSOCIATE (CURRENT) DRUG THERAPY 01/26/2020 ALBERT KNOTT MD Ot N40.1 BENIGN PROSTATIC HYPERPLASIA WITH LOWER 01/26/2020 LEORA TINSLEY, LOUANN Coyle Ot Z01.89 ENCOUNTER FOR OTHER SPECIFIED SPECIAL EX 01/26/2020 LOUANN COREY MD Ot Z79.899 OTHER CORRECTION (CURRENT) DRUG THERAPY 01/26/2020 ISABELLA DEAL MD [...] MD Ot I25.10 ATHSCL HEART DISEASE OF [place] CORONARY 01/26/2020 ISABELLA DEAL MD Ot J43.9 EMPHYSEMA, UNSPECIFIED 01/26/2020 ISABELLA DEAL MD Ot J45.909 UNSPECIFIED ASTHMA, UNCOMPLICATED 01/26/2020 ISABELLA DEAL MD Ot K21.9 GASTRO-ESOPHAGEAL REFLUX DISEASE WITHOUT 01/26/2020 ISABELLA DEAL MD Ot N39.0 URINARY TRACT INFECTION, SITE NOT SPECIF 01/26/2020 ISABELLA DEAL MD Ot R56.9 UNSPECIFIED CONVULSIONS 01/26/2020 ISABELLA DEAL MD Ot Z79.02 MEDICAL SALES ASSOCIATE (CURRENT) USE OF ANTITHROMBOTI 01/26/2020 ISABELLA DEAL [...] 01/26/2020 LOUANN COREY MD Ot Z79.899 OTHER MEDICAL SALES ASSOCIATE (CURRENT) DRUG THERAPY 01/26/2020 ALBERT KNOTT MD Ot N40.1 BENIGN PROSTATIC HYPERPLASIA WITH LOWER 01/26/2020 LOUANN COREY MD Ot Z01.89 ENCOUNTER FOR OTHER SPECIFIED SPECIAL EX 01/26/2020 LOUANN COREY MD Ot Z79.899 OTHER CORRECTION (CURRENT) DRUG THERAPY 01/31/2020 ISABELLA DEAL MD [...] MD Ot I25.10 ATHSCL HEART DISEASE OF [place] CORONARY 01/31/2020 ISABELLA DEAL MD Ot J43.9 EMPHYSEMA, UNSPECIFIED 01/31/2020 ISABELLA DEAL MD Ot J45.909 UNSPECIFIED ASTHMA, UNCOMPLICATED 01/31/2020 ISABELLA DEAL MD Ot K21.9 GASTRO-ESOPHAGEAL REFLUX DISEASE WITHOUT 01/31/2020 ISABELLA DEAL MD Ot N39.0 URINARY TRACT INFECTION, SITE NOT SPECIF 01/31/2020 ISABELLA DEAL MD Ot R56.9 UNSPECIFIED CONVULSIONS 01/31/2020 ISABELLA DEAL MD Ot Z79.02 MEDICAL SALES ASSOCIATE (CURRENT) USE OF ANTITHROMBOTI 01/31/2020 SAY TINSLEY, [...] 02/16/2020 LOUANN COREY MD, Ot Z79.899 OTHER MEDICAL SALES ASSOCIATE (CURRENT) DRUG THERAPY 02/16/2020 ALBERT KNOTT MD Ot N40.1 BENIGN PROSTATIC HYPERPLASIA WITH LOWER 02/16/2020 LOUANN COREY MD Ot Z01.89 ENCOUNTER FOR OTHER SPECIFIED SPECIAL EX 02/16/2020 LOUANN COREY MD, Ot Z79.899 OTHER MEDICAL SALES ASSOCIATE (CURRENT) DRUG THERAPY 02/16/2020 SIRIA PAIGE DO [...] DO, Ot I25.10 ATHSCL HEART DISEASE OF [place] CORONARY 02/16/2020 SIRIA PAIGE DO, Ot J43 .9 EMPHYSEMA, UNSPECIFIED 02/16/2020 SIRIA PAIGE DO Ot K21 .9 GASTRO-ESOPHAGEAL REFLUX DISEASE WITHOUT 02/16/2020 SIRIA PAIGE DO, Ot R31 .9 HEMATURIA, UNSPECIFIED 02/16/2020 SIRIA PAIGE DO, Ot Z77.22 CNTCT W AND EXPSR TO ENVIRON TOBACCO SMO 02/16/2020 ROYAL SIRIA Ot Z79.02 MEDICAL SALES ASSOCIATE (CURRENT) USE [facility] MEDICAL SALES ASSOCIATE (CURRENT) USE OF INHALED STERO 02/16/2020 [facility] Z79.82 CORRECTION (CURRENT) USE OF ASPIRIN 02/16/2020 [facility] Z88 .0 ALLERGY STATUS TO PENICILLIN 02/16/2020 [facility] Z88 .1 ALLERGY STATUS TO OTHER ANTIBIOTIC AGENT 02/16/2020 [facility] Z88 .2 ALLERGY STATUS TO SULFONAMIDES STATUS 02/16/2020 [facility] Z95 .1 PRESENCE OF AORTOCORONARY BYPASS GRAFT 02/16/2020 [facility] Z95 .5 PRESENCE OF CORONARY ANGIOPLASTY IMPLANT 02/16/2020 ALBERT KNOTT MD Ot N40.1 BENIGN PROSTATIC HYPERPLASIA WITH LOWER 02/16/2020 LOUANN COREY MD Ot Z01.89 ENCOUNTER FOR OTHER SPECIFIED SPECIAL EX 02/16/2020 OLUANN COREY MD Ot Z79.899 OTHER CORRECTION (CURRENT) DRUG THERAPY 02/17/2020 ALBERT KNOTT MD Ot N40.1 BENIGN PROSTATIC HYPERPLASIA WITH LOWER 02/17/2020 LOUANN COREY MD Ot Z01.89 ENCOUNTER FOR OTHER SPECIFIED SPECIAL EX 02/17/2020 LOUANN COREY MD Ot Z79.899 OTHER CORRECTION (CURRENT) DRUG THERAPY 02/17/2020 ALBERT KNOTT MD Ot N40.1 BENIGN PROSTATIC HYPERPLASIA WITH LOWER 02/17/2020 LOUANN COREY MD Ot Z01.89 ENCOUNTER FOR OTHER SPECIFIED SPECIAL EX 02/17/2020 LOUANN COREY MD Ot Z79.899 OTHER MEDICAL SALES ASSOCIATE (CURRENT) DRUG THERAPY 02/17/2020 ALBERT KNOTT MD Ot N40.1 BENIGN PROSTATIC HYPERPLASIA WITH LOWER 02/17/2020 LOUANN COREY MD Ot Z01.89 ENCOUNTER FOR OTHER SPECIFIED SPECIAL EX 02/17/2020 LOUANN COREY MD Ot Z79.899 OTHER CORRECTION (CURRENT) DRUG THERAPY 02/17/2020 ALBERT KNOTT MD Ot N40.1 BENIGN PROSTATIC HYPERPLASIA WITH LOWER 02/17/2020 LOUANN COREY MD Ot Z01.89 ENCOUNTER FOR OTHER SPECIFIED SPECIAL EX 02/17/2020 LOUANN COREY MD Ot Z79.899 OTHER CORRECTION (CURRENT) DRUG THERAPY 02/17/2020 LOTUS FREIRE MD Ot E11. 9 TYPE 2 DIABETES MELLITUS WITHOUT COMPLIC 02/17/2020 LOTUS FREIRE MD Ot E78. 00 PURE HYPERCHOLESTEROLEMIA, UNSPECIFIED 02/17/2020 LOTUS FREIRE MD Ot F17.210 NICOTINE DEPENDENCE, CIGARETTES, UNCOMPL 02/17/2020 LOTUS FREIRE MD Ot F31. 9 BIPOLAR DISORDER, UNSPECIFIED 02/17/2020 LOTUS FREIRE MD Ot F41. 9 ANXIETY DISORDER, UNSPECIFIED 02/17/2020 LOTUS FREIRE MD Ot G40.909 EPILEPSY, UNSP, NOT INTRACTABLE, WITHOUT 02/17/2020 LOTUS FREIRE MD Ot I10 ESSENTIAL (PRIMARY) HYPERTENSION 02/17/2020 LOTUS FREIRE MD Ot I25. 10 ATHSCL HEART DISEASE OF [place] CORONARY 02/17/2020 LOTUS FREIRE MD Ot K21. 9 GASTRO-ESOPHAGEAL REFLUX DISEASE WITHOUT 02/17/2020 LOTUS FREIRE MD Ot M19. 91 PRIMARY OSTEOARTHRITIS, UNSPECIFIED SITE 02/17/2020 LOTUS FREIRE MD Ot M25.551 PAIN IN RIGHT HIP 02/17/2020 LOTUS FREIRE MD Ot M54. 5 LOW BACK PAIN 02/17/2020 LOTUS FREIRE MD Ot N40. 1 BENIGN PROSTATIC HYPERPLASIA WITH LOWER 02/17/2020 LOTUS FREIRE MD Ot R33. 9 RETENTION OF URINE, UNSPECIFIED 02/17/2020 LOTUS FREIRE MD Ot S40.811A ABRASION OF RIGHT UPPER ARM, INITIAL ENC 02/17/2020 LOTUS FREIRE MD Ot W06.XXXA FALL FROM BED, INITIAL ENCOUNTER 02/17/2020 LOTUS FREIRE MD Ot Z79. 02 MEDICAL SALES ASSOCIATE (CURRENT) USE OF ANTITHROMBOTI 02/17/2020 LOTUS FREIRE MD Ot Z79. 82 MEDICAL SALES ASSOCIATE (CURRENT) USE OF ASPIRIN 02/17/2020 LOTUS FREIRE MD, Ot Z79.899 OTHER MEDICAL SALES ASSOCIATE (CURRENT) DRUG THERAPY 02/17/2020 LOTUS FREIRE MD Ot Z88. 0 ALLERGY STATUS TO PENICILLIN 02/17/2020 LOTUS FREIRE MD Ot Z88. 2 ALLERGY STATUS TO SULFONAMIDES STATUS 02/17/2020 LOTUS FREIRE MD Ot Z88. 8 ALLERGY STATUS TO OTH DRUG/MEDS/BIOL SUB 02/17/2020 LOTUS FREIRE MD Ot Z95. 1 PRESENCE OF AORTOCORONARY BYPASS GRAFT 02/17/2020 LOTUS FREIRE MD Ot Z95. 5 PRESENCE OF CORONARY ANGIOPLASTY IMPLANT 02/17/2020 NIKOS TINSLEY, ALBERT Alvarez Ot N40.1 BENIGN PROSTATIC HYPERPLASIA WITH LOWER 02/17/2020 LOUANN COREY MD Ot Z01.89 ENCOUNTER FOR OTHER SPECIFIED SPECIAL EX 02/17/2020 LOUANN COREY MD, Ot Z79.899 OTHER MEDICAL SALES ASSOCIATE (CURRENT) DRUG THERAPY 02/19/2020 SIRIA PAIGE DO, Ot E11 .9 TYPE 2 DIABETES MELLITUS WITHOUT COMPLIC 02/19/2020 SIRIA PAIGE DO, Ot E78.00 PURE HYPERCHOLESTEROLEMIA, UNSPECIFIED 02/19/2020 SIRIA PAIGE DO, Ot F31 .9 BIPOLAR DISORDER, UNSPECIFIED 02/19/2020 SIRIA PAIGE DO, Ot F41 .9 ANXIETY DISORDER, UNSPECIFIED 02/19/2020 SIRIA PAIGE DO, Ot G40.909 EPILEPSY, UNSP, NOT INTRACTABLE, WITHOUT 02/19/2020 SIRIA PAIGE DO, Ot I10 ESSENTIAL (PRIMARY) HYPERTENSION 02/19/2020 SIRIA PAIGE DO, Ot I25.10 ATHSCL HEART DISEASE OF [place] CORONARY 02/19/2020 SIRIA PAIGE DO, Ot J43 .9 EMPHYSEMA, UNSPECIFIED 02/19/2020 SIRIA PAIGE DO, Ot K21 .9 GASTRO-ESOPHAGEAL REFLUX DISEASE WITHOUT 02/19/2020 SIRIA PAIGE DO, Ot R31 .9 HEMATURIA, UNSPECIFIED 02/19/2020 SIRIA PAIGE DO, Ot Z77.22 CNTCT W AND EXPSR TO ENVIRON TOBACCO SMO 02/19/2020 SIRIA PAIGE DO, Ot Z79.02 MEDICAL SALES ASSOCIATE (CURRENT) USE OF ANTITHROMBOTI 02/19/2020 SIRIA PAIGE DO Ot Z79.51 MEDICAL SALES ASSOCIATE (CURRENT) USE OF INHALED STERO 02/19/2020 SIRIA PAIGE DO Ot Z79.82 CORRECTION (CURRENT) USE OF ASPIRIN 02/19/2020 SIRIA PAIGE DO Ot Z88 .0 ALLERGY STATUS TO PENICILLIN [...] TYPE 2 DIABETES MELLITUS WITHOUT COMPLIC 02/19/2020 LOTUS FREIRE MD J Ot E78. 00 PURE HYPERCHOLESTEROLEMIA, UNSPECIFIED 02/19/2020 LOTUS FREIRE MD Ot F17.210 NICOTINE DEPENDENCE, CIGARETTES, UNCOMPL 02/19/2020 LOTUS FREIRE MD Ot F31. 9 BIPOLAR DISORDER, UNSPECIFIED 02/19/2020 LOTUS FREIRE MD Ot F41. 9 ANXIETY DISORDER, UNSPECIFIED 02/19/2020 LOTUS FREIRE MD Ot G40.909 EPILEPSY, UNSP, NOT INTRACTABLE, WITHOUT 02/19/2020 LOTUS FREIRE MD J Ot I10 ESSENTIAL (PRIMARY) HYPERTENSION 02/19/2020 LOTUS FREIRE MD Ot I25. 10 ATHSCL HEART DISEASE OF [place] CORONARY 02/19/2020 LOTUS FREIRE MD J Ot K21. 9 GASTRO-ESOPHAGEAL REFLUX DISEASE WITHOUT 02/19/2020 LOTUS FREIRE MD J Ot M19. 91 PRIMARY OSTEOARTHRITIS, UNSPECIFIED SITE 02/19/2020 LOTUS FREIRE MD J Ot M25.551 PAIN IN RIGHT HIP 02/19/2020 LOTUS FREIRE MD Ot M54. 5 LOW BACK PAIN 02/19/2020 LOTUS FREIRE MD Ot N40. 1 BENIGN PROSTATIC HYPERPLASIA WITH LOWER 02/19/2020 LOTUS FREIRE MD J Ot R33. 9 RETENTION OF URINE, UNSPECIFIED 02/19/2020 LOTUS FREIRE MD J Ot S40.811A ABRASION OF RIGHT UPPER ARM, INITIAL ENC 02/19/2020 LOTUS FREIRE MD, Ot W06.XXXA FALL FROM BED, INITIAL ENCOUNTER 02/19/2020 LOTUS FREIRE MD, Ot Z79. 02 CORRECTION (CURRENT) USE OF ANTITHROMBOTI 02/19/2020 LOTUS FREIRE MD, Ot Z79. 82 CORRECTION (CURRENT) USE OF ASPIRIN 02/19/2020 LOTUS FREIRE MD, Ot Z79.899 OTHER CORRECTION (CURRENT) DRUG THERAPY 02/19/2020 LOTUS FREIRE MD, Ot Z88. 0 ALLERGY STATUS TO PENICILLIN 02/19/2020 LOTUS FREIRE MD, Ot Z88. 2 ALLERGY STATUS TO SULFONAMIDES STATUS 02/19/2020 LOTUS FREIRE MD, Ot Z88. 8 ALLERGY STATUS TO OTH DRUG/MEDS/BIOL SUB 02/19/2020 LOTUS FREIRE MD Ot Z95. 1 PRESENCE OF AORTOCORONARY BYPASS GRAFT 02/19/2020 LOTUS FREIRE MD, Ot Z95. 5 PRESENCE OF CORONARY ANGIOPLASTY IMPLANT 03/24/2020 ALBERT KNOTT MD Ot N40.1 BENIGN PROSTATIC HYPERPLASIA WITH LOWER 03/24/2020 LOUANN COREY MD Ot Z01.89 ENCOUNTER FOR OTHER SPECIFIED SPECIAL EX 03/24/2020 LOUANN COREY MD Ot Z79.899 OTHER CORRECTION (CURRENT) DRUG THERAPY 03/24/2020 ALBERT KNOTT MD Ot N40.1 BENIGN PROSTATIC HYPERPLASIA WITH LOWER 03/24/2020 LOUANN COREY MD Ot Z01.89 ENCOUNTER FOR OTHER SPECIFIED SPECIAL EX 03/24/2020 LOUANN COREY MD Ot Z79.899 OTHER CORRECTION (CURRENT) DRUG THERAPY 03/24/2020 ALBERT KNOTT MD Ot N40.1 BENIGN PROSTATIC HYPERPLASIA WITH LOWER 03/24/2020 LOUANN COREY MD Ot Z01.89 ENCOUNTER FOR OTHER SPECIFIED SPECIAL EX 03/24/2020 LOUANN COREY MD Ot Z79.899 OTHER CORRECTION (CURRENT) DRUG THERAPY 03/24/2020 ALBERT KNOTT MD Ot N40.1 BENIGN PROSTATIC HYPERPLASIA WITH LOWER 03/24/2020 LOUANN COREY MD Ot Z01.89 ENCOUNTER FOR OTHER SPECIFIED SPECIAL EX 03/24/2020 LOUANN COREY MD Ot Z79.899 OTHER CORRECTION (CURRENT) DRUG THERAPY 03/24/2020 ALBERT KNOTT MD Ot N40.1 BENIGN PROSTATIC HYPERPLASIA WITH LOWER 03/24/2020 LOUANN COREY MD Ot Z01.89 ENCOUNTER FOR OTHER SPECIFIED SPECIAL EX 03/24/2020 LOUANN COREY MD Ot Z79.899 OTHER CORRECTION (CURRENT) DRUG THERAPY 03/25/2020 ALBERT KNOTT MD Ot N40.1 BENIGN PROSTATIC HYPERPLASIA WITH LOWER 03/25/2020 LOUANN COREY MD Ot Z01.89 ENCOUNTER FOR OTHER SPECIFIED SPECIAL EX 03/25/2020 LOUANN COREY MD Ot Z79.899 OTHER CORRECTION (CURRENT) DRUG THERAPY 03/25/2020 ESCOTO DO, CARLOS Ot E11.9 TYPE 2 DIABETES MELLITUS WITHOUT COMPLIC 03/25/2020 ESCOTO DO, CARLOS Ot E78.00 PURE HYPERCHOLESTEROLEMIA, UNSPECIFIED 03/25/2020 ESCOTO DO, CARLOS Ot E87.1 HYPO-OSMOLALITY AND HYPONATREMIA 03/25/2020 ESCOTO DO, CARLOS Ot F31.9 BIPOLAR DISORDER, UNSPECIFIED 03/25/2020 ESCOTO DO, CARLOS Ot F41.9 ANXIETY DISORDER, UNSPECIFIED 03/25/2020 ESCOTO DO, CARLOS Ot G40.90 9 EPILEPSY, UNSP, NOT INTRACTABLE, WITHOUT 03/25/2020 ESCOTO DO, CARLOS Ot I10 ESSENTIAL (PRIMARY) HYPERTENSION 03/25/2020 ESCOTO DO, CARLOS Ot I25.10 ATHSCL HEART DISEASE OF [place] CORONARY 03/25/2020 ESCOTO DO, CARLOS Ot J43.9 EMPHYSEMA, UNSPECIFIED 03/25/2020 ESCOTO DO, CARLOS Ot K21.9 GASTRO-ESOPHAGEAL REFLUX DISEASE WITHOUT 03/25/2020 ESCOTO DO, CARLOS Ot M19.91 PRIMARY OSTEOARTHRITIS, UNSPECIFIED SITE 03/25/2020 ESCOTO DO, CARLOS Ot N39.0 URINARY TRACT INFECTION, SITE NOT SPECIF 03/25/2020 ESCOTO DO, CARLOS Ot N40.0 BENIGN PROSTATIC HYPERPLASIA WITHOUT LOW 03/25/2020 ESCOTO DO, CARLOS Ot R00.1 BRADYCARDIA, UNSPECIFIED 03/25/2020 ESCOTO DO, CARLOS Ot Z87.89 1 PERSONAL HISTORY OF NICOTINE DEPENDENCE 03/25/2020 MATT ESCOTO DOI Ot Z90.49 ACQUIRED ABSENCE OF OTHER SPECIFIED PART 03/25/2020 JEVON MCMILLAN CARLOS Ot Z95.1 PRESENCE OF AORTOCORONARY BYPASS GRAFT 03/25/2020 ESCOTO CARLOS MCMILLAN Ot Z95.5 PRESENCE OF CORONARY ANGIOPLASTY IMPLANT 03/25/2020 NIKOS TINSLEY, ALBERT Alvarez Ot N40.1 BENIGN PROSTATIC HYPERPLASIA WITH LOWER 03/25/2020 LEORA TINSLEY, LOUANN Coyle Ot Z01.89 ENCOUNTER FOR OTHER SPECIFIED SPECIAL EX 03/25/2020 LOUANN COREY MD Ot Z79.899 OTHER CORRECTION (CURRENT) DRUG THERAPY Procedures Code Description Performed By Per formed On [id number] RE POSITION LEFT UPPER FEMUR WITH INTRAME 03/08/2017 [id number] IN SPECTION OF BLADDER, ENDO 03/10/2017 Results [...] INFLUENZA A AND B ANTIGENS BY IA [facility] Comprehensive metabolic panel - 01/29/19 13:00 Serum [...] culture - 06/08/19 08:50 Bacterial urine culture [id number] NRG COLONY COUNT >100,000/ML NRG FTX;REPORTABLE UNKNOWN [...] 7-25 CREATININE 0.74 mg/dL 0.70-1.18 eGFR NON-AFR. [place] 93 mL/min/1.73m2 > OR = 60 eGFR [...] culture - 12/18/19 12:00 Bacterial urine culture [id number] NRG COLONY COUNT >100,000/ML NRG FTX;REPORTABLE SEE [...] culture - 01/26/20 20:20 Bacterial urine culture [id number] NRG COLONY COUNT >100,000/ML NRG SUSCEPTIBILITY NOT [...] 7-25 CREATININE 0.79 mg/dL 0.70-1.18 eGFR NON-AFR. [place] 91 mL/min/1.73m2 > OR = 60 eGFR [...] culture YES NRG Bacterial urine culture - 03/24/20 14:00 Bacterial urine culture [id number] NRG COLONY COUNT 80,000 CFU/ML NRG SUSCEPTIBILITY SUSCEPTIBILITY REPORTED [id number] 5. NRG Dirithromycin susceptibility test by dis k diffusion - 03/24/20 14:00 Vancomycin susceptibility test by minimum inhibitory c oncentration 2 NRG Levofloxacin susceptibility test by minimum inhibitory concentration <= NRG Ampicillin susceptibility test by minimum inhibitory c oncentration 2 NRG Nitrofurantoin susceptibility test by az nimum inhibitory concentration <= NRG Linezolid susceptibility test by minimum inhibitory co ncentration <= NRG Daptomycin susc MAURI <= NRG Arterial blood gas measurement - 0 16:30 Blood pCO2 38 mm[Hg] 35-45 Blood pO2 88 mm[Hg] 79-93 Arterial blood bicarbonate measurement (moles/volume) 25 mmol/L 23-27 Arterial blood base excess by calculation 0.7 mmol /L -2.5-2.5 Arterial blood oxygen saturation measurement 98 % 94-100 * Inhaled oxygen flow rate ROOM AIR NRG Arterial blood pH measurement with patient temperature correction 7.42 7.37-7.43 Arterial blood carbon dioxide, total measurement (mole s/volume) 26.1 mmol/L 21.0-31.0 Body site LT RAD NRG Assessment of wrist artery patency prior to arterial p uncture YES-POS NRG Setting of ventilation mode NO NR G Measurement of body temperature 36.0 NRG Serum or plasma lithium measurement (mol es/volume) - 03/24/20 16:31 BNP PT 91.8 pg/mL <100.0 Serum or plasma troponin i.cardiac measu rement (mass/volume) - 03/24/20 16:31 Serum or plasma troponin i.cardiac measurement (mass/v olume) < ng/mL <0.028 DILANTIN (PHENYTOIN) - 03/24/20 16:31 DILANTIN PHEN 27.7 % 10.0-20.0 Complete blood count (CBC) with automate d white blood cell (WBC) differential - 03/25/20 04:50 Blood leukocytes automated count (number/volume) 6.2 10*3/uL 4.3-11.0 Blood erythrocytes automated count (number/volume) 4.30 10*6/uL 4.35-5.85 Venous blood hemoglobin measurement (mass/volume) 12.0 g/dL 13.3-17.7 Blood hematocrit (volume fraction) 35 % 40-54 Automated erythrocyte mean corpuscular volume 81 [ foz_us] 80-99 Automated erythrocyte mean corpuscular h emoglobin (mass per erythrocyte) 28 pg 25-34 Automated erythrocyte mean corpuscular h emoglobin concentration measurement (mass/volume) 35 g/dL 32-36 Automated erythrocyte distribution width ratio 15. 8 % 10.0- 14.5 Automated blood platelet count (count/volume) 357 10*3/uL 130-400 Automated blood platelet mean volume measurement 7.3 [foz_us] 7.4-10.4 Automated blood neutrophils/100 leukocytes 70 % 42-75 Automated blood lymphocytes/100 leukocytes 20 % 12-44 Blood monocytes/100 leukocytes 10 % 0-12 Automated blood eosinophils/100 leukocytes 1 % 0-10 Automated blood basophils/100 leukocytes 0 % 0-10 Blood neutrophils automated count (number/volume) 4.3 10*3 1.8-7.8 Blood lymphocytes automated count (number/volume) 1.2 10*3 1.0-4.0 Blood monocytes automated count (number/volume) 0. 6 10*3 0.0-1.0 Automated eosinophil count 0.1 10*3/uL 0 .0-0.3 Automated blood basophil count (count/volume) 0.0 10*3/uL 0.0-0.1 Comprehensive metabolic panel - 03/25/20 05:05 Serum or plasma sodium measurement (moles/volume) 136 mmol/L 135-145 Serum or plasma potassium measurement (moles/volume) 4.3 mmol/L 3.6-5.0 Serum or plasma chloride measurement (moles/volume) 104 mmol/L 98-107 Carbon dioxide 22 mmol/L 21-32 [...] plasma alkaline phosphatase delmi surement (enzymatic activity/volume) 73 U/L 40-136 Serum or plasma aspartate aminotransfera se measurement (enzymatic activity/volume) 58 U/L 5-34 Serum or plasma alanine aminotransferase measurement (enzymatic activity/volume) 17 U/L 0-55 Serum or plasma protein measurement (mass/volume) 6.6 g/dL 6.4-8.2 Serum or plasma albumin measurement (mass/volume) 3.8 g/dL 3.2-4.5 CALCIUM CORRECTED 9.1 mg/dL 8.5-10.1 CULTURE, URINE - 04/04/20 12:35 CULTURE, URINE, ROUTINE SEE NOTE NR CULTURE, URINE - 05/13/20 17:04 CULTURE, URINE, ROUTINE SEE NOTE [facility] Whole blood basic metabolic panel - 05/08 03/27 15:19 Serum or plasma sodium measurement (moles/volume) 127 mmol/L 135-145 Serum or plasma potassium measurement (moles/volume) 4.7 mmol/L 3.6-5.0 Serum or plasma chloride measurement (moles/volume) 90 mmol/L 98-107 Carbon dioxide 25 mmol/L 21-32 Serum or plasma anion gap determination (moles/volume) 12 mmol/L 5-14 Serum or plasma urea nitrogen measurement (mass/volume ) 22 mg/dL 7-18 Serum or plasma creatinine measurement (mass/volume) 0.81 mg/dL 0.60-1.30 Serum or plasma urea nitrogen/creatinine mass ratio 27 NRG Serum or plasma creatinine measurement w ith calculation of estimated glomerular filtration rate > NRG Serum or plasma glucose measurement (mass/volume) 122 mg/dL 70-105 Serum or plasma calcium measurement (mass/volume) 9.3 mg/dL 8.5-10.1 Prostate specific ag [mass/volume] in se rum or plasma - 05/22/20 15:19 PSA EQUIMOLAR (AMELIA) 1.22 % 0.00-4.0 0 Encounters ACCT No. Visit Date/Time Discharge Status Pt. Type Provider Facility Loc./Unit Complaint [id number] 05/27/2020 13:30:00 05/27/2020 23:59: 59 CLS Outpatient [facility] [id number] 05/13/2020 16:20:00 Document Registration [id number] 04/04/2020 11:15:00 Document Registration [id number] 02/27/2020 14:15:00 Document Registration [id number] 02/21/2020 10:30:00 Document Registration [id number] 10/18/2019 10:45:00 Document Registration [id number] 07/19/2019 10:15:00 Document Registration [id number] 05/22/2020 15:06:00 020 23:59:59 CLS Outpatient ALBERT KNOTT MD [facility] LAB FS N40.1 [id number] 03/24/2020 15:01:00 020 13:50:00 DIS Inpatient JEVON DO, CARLOS V [facility] 4TH ALTERED MENTAL STATUS [id number] 02/17/2020 09:05:00 12:05:00 DIS Emergency TANI TINSLEY, LOTUS Montelongo [facility] ER FS FALL [id number] 02/16/2020 11:29:00 13:14:00 DIS Emergency ROYAL SIRIA [facility] ER FS HEMATURIA [id number] 01/26/2020 19:25:00 22:16:00 DIS Emergency SAY TINSELY, ISABELLA Cid [facility] ER FS SEIZURE [id number] 12/18/2019 12:30:00 23:59:59 CLS Outpatient LEORA TINSLEY, LOUANN Coyle [facility] IHC CMP UA [id number] 06/08/2019 08:50:00 23:59:59 CLS Outpatient NIKOS TINSLEY, ALBERT Alvarez [facility] LAB FS N40.1 [id number] 06/05/2019 17:54:00 019 19:39:00 DIS Emergency CHICHI CARDENAS DO [facility] ER FS PT FELL AT HOME [id number] 01/29/2019 12:42:00 019 17:15:00 DIS Emergency SYL THEODORE DO [facility] ER FS CHEST PAIN [id number] 07/23/2017 06:25:00 017 14:15:00 DIS Inpatient MATT ESCOTO DOI [facility] 4TH HIP FRACTURE [id number] 04/22/2017 14:30:00 017 14:40:00 DIS Inpatient JEVON MCMILLAN CARLOS [facility] 4TH HYPONATREMIA COMPLICATE D UTI [id number] 03/11/2017 09:51:00 017 10:10:00 DIS Inpatient RON KINNEY MD [facility] IRF DISPLACED INTERTROCHANT RON FX LEFT FEMUR [id number] 03/07/2017 21:00:00 017 09:43:00 DIS Inpatient SARY MCCRARY DO [facility] 4TH L HIP FRACTURE; SEIZUR E DISORDER; CAD [id number] 01/12/2013 10:45:00 Document Registration [id number] 12/28/2012 12:32:00 Document Registration [id number] 09/21/2012 12:42:00 Document Registration [id number] 09/15/2012 11:36:00 Document Registration
== END 2020-06-04 15:34 | disposition home or self-care (01) ==
LOC: EDUNIT# 15:05 → ER FS 15:06
DX: M26.621 Arthralgia of right temporomandibular joint (principal); G89.29 Other chronic pain; F41.9 Anxiety disorder, unspecified; F31.9 Bipolar disorder, unspecified; E11.9 Type 2 diabetes mellitus without complications; I10 Essential (primary) hypertension; J44.9 Chronic obstructive pulmonary disease, unspecified; E78.00 Pure hypercholesterolemia, unspecified; K21.9 Gastro-esophageal reflux disease without esophagitis; N40.0 Benign prostatic hyperplasia without lower urinary tract symptoms; N20.0 Calculus of kidney; G40.909 Epilepsy, unspecified, not intractable, without status epilepticus; I25.10 Atherosclerotic heart disease of native coronary artery without angina pectoris; H40.9 Unspecified glaucoma; Z88.0 Allergy status to penicillin; Z88.1 Allergy status to other antibiotic agents; Z88.2 Allergy status to sulfonamides; Z88.8 Allergy status to other drugs, medicaments and biological substances; Z95.1 Presence of aortocoronary bypass graft; Z95.5 Presence of coronary angioplasty implant and graft; Z77.22 Contact with and (suspected) exposure to environmental tobacco smoke (acute) (chronic); Z79.82 Long term (current) use of aspirin; Z79.891 Long term (current) use of opiate analgesic; Z79.51 Long term (current) use of inhaled steroids

== ENCOUNTER → 2020-06-25 | Outpatient (CLI) | payer MEDICARE, MEDICAID ==
--- NOTE | 2020-06-25 11:22 | Diagnostic Imaging Report ---
PROCEDURE: CT maxillofacial without contrast. TECHNIQUE: Multiple contiguous axial images were obtained through the facial bones without the use of intravenous contrast. Auto Exposure Controls were utilized during the CT exam to meet ALARA standards for radiation dose reduction. INDICATION: Jaw pain. COMPARISON: CT head of 03/24/2020. FINDINGS: The left mandibular condyle is appropriately positioned within the glenoid fossa of the temporal bone. No fracture within the temporal bone. The right mandibular condyle sits in a physiologic position just below the articular eminence of the temporal bone. No advanced degenerative changes are noted within the temporomandibular joint on either side. The patient is edentulous. No erosive changes in the mandible or maxilla. There is a small mucosal retention cysts in the left maxillary sinus measuring approximately 11 x 11 mm. Otherwise, the paranasal sinuses are clear. No abnormality within the nasal cavity. Bilateral cataract surgeries have been performed. Otherwise, globes are unremarkable. No hydrocephalus or space-occupying mass within the visualized aspects of the brain. IMPRESSION: 1. No dislocation of the temporomandibular joints. 2. No mandibular fracture or erosions. 3. No degenerative changes are appreciated within the temporomandibular joint on either side. Dictated by: Dictated on workstation # [id number]
== END ==
LOC: RAD FS 09:54
PROVIDERS: ATTEND Family Medicine
DX: R68.84 Jaw pain (principal)
CPT/HCPCS: 70486

== ENCOUNTER 2020-07-14 11:30 | Emergency (ER) | payer MEDICARE, MEDICAID ==
[~2020-07-14 11:30] MED LIST changes: +ASPI-1238 PO; -ASPI-983 PO; -OXYC-465 PO; +OXYC-556 PO
[2020-07-14] MEDS ORDERED: LEVETIRACETAM INJECTION 1,000 MG in NS (IVPB) 100 ML IV STA (11:41)
--- NOTE | 2020-07-14 12:06 | ED General ---
General Chief Complaint: Neurological Problems Stated Complaint: SEIZURE Nursing Triage Note: brought in by ems for seizure activity. Was witnessed by home health. They stated it was the longest seizure they have witnessed. Patient is alert and able to answer questions. Nursing Sepsis Screen: No Definite Risk History of Present Illness Date Seen by Provider: Jul 14, 2020 Time Seen by Provider: 11:30 Initial Comments The patient is a 69-year-old male with a complicated past medical history including hypertension, hyperlipidemia, coronary artery disease, seizure disorder on phenytoin, chronic pain on oxycodone and OxyContin daily. He presents for evaluation of a reported breakthrough seizure at home prior to ar rival. Generalized convulsions of arms and legs were witnessed by the patient's in home health aide who stated to EMS that they lasted for less than 5 minutes before spontaneously resolving prior to EMS arrival. Patient did lose control of his bladder during the episode. He was seated in a chair and did not sustain any injury during the episode. Per EMS he was initially responsive but a little slow to respond but during transport his mental status resolved and at the present time nursing staff here in the emergency department as well as the EMS crew, who are familiar with the patient, state that he is at his neurocognitive baseline. Patient is alert and responsive and moves all extremities equally and follows commands appropriately and is in no acute distress upon initial assessment here in the emergency department. Accu-Chek was in the 150s per EMS en route. Vital signs are completely appropriate here. The patient denies fevers, nausea or vomiting, headache, focal weakness, numbness, tingling, neck stiffness/pain/meningismus, vision changes, shortness of breath or chest pain of any kind, flank pain, abdominal pain, dysuria or hematuria, changes in bowel habits. His only complaint is of mild low midline back pain, acute on chronic, which he states began bothering him when the ambulance "jostled me" enroute. Home health aide reported to EMS that the patient had been compliant with all of his medications recently, including his phenytoin. Allergies and Home Medications Allergies Coded Allergies: Penicillins (Verified Allergy, Unknown, 04/22/17) diazepam (Unverified Allergy, Unknown, 03/07/17) doxycycline (Unverified Allergy, Unknown, RASH, 03/07/17) phenobarbital (Unverified Allergy, Unknown, 03/07/17) RELAXES ME TOO MUCH piperacillin (Unverified Allergy, Unknown, RASH, PT HAS RECEIVED CEFAZOLIN IN THE PAST W/O ISSUE, 03/08/17) sulfamethoxazole (Verified Allergy, Unknown, 04/22/17) terazosin (Unverified Allergy, Unknown, 03/07/17) CHEST PAIN Home Medications Albuterol Sulfate 1 Puff Puff, 2 PUFF INH Q4H PRN for SHORTNESS OF BREATH, (Reported) Aspirin 81 Mg Tablet.dr, 81 MG PO DAILY, (Reported) Bethanechol Chloride 25 Mg Tablet, 25 MG PO QID, (Reported) Cefdinir 300 Mg Capsule, 300 MG PO BID Prescribed by: CARLOS ESCOTO on 03/25/20 105 Clopidogrel Bisulfate 75 Mg Tablet, 75 MG PO DAILY, (Reported) Ezetimibe 10 Mg Tablet, 10 MG PO HS, (Reported) Fenofibrate Nanocrystallized 145 Mg Tablet, 145 MG PO DAILY, (Reported) Fentanyl 1 Each Patch.td72, 50 MCG TD Q72H Prescribed by: CARLOS ESCOTO on 07/26/17 09 Ferrous Sulfate 325 Mg Tablet, 325 MG PO DAILY Prescribed by: CARLOS ESCOTO on 07/26/17945 Fluconazole 100 Mg Tablet, 100 MG PO DAILY Prescribed by: CARLOS ESCOTO on 03/25/20 105 Fluoxetine HCl 20 Mg Capsule, 40 MG PO DAILY, (Reported) TAKES 2 (20MG) CAPSULES Fluticasone Propionate 1 Ea Aero, 1 PUFF INH BID, (Reported) Fluticasone Propionate 16 Gm [place].susp, 2 SPRAYS NS DAILY, (Reported) Gabapentin 300 Mg Capsule, 300 MG PO HS, (Reported) Isosorbide Mononitrate 60 Mg Tab, 60 MG PO BID, (Reported) Lactulose 20 Gm/30 Ml Solution, 10 GM PO BID Prescribed by: CARLOS ESCOTO on 07/26/17 09 Lorazepam 1 Mg Tablet, 1 MG PO BID, (Reported) Multivitamin 1 Each Capsule, 1 CAP PO DAILY, (Reported) Nitroglycerin 0.4 Mg Tab.subl, 0.4 MG SL UD PRN for CHEST PAIN, (Reported) Olanzapine 2.5 Mg Tablet, 2.5 MG PO HS, (Reported) Oxycodone HCl 20 Mg Tab.er.12h, 20 MG PO BID Prescribed by: CARLOS ESCOTO on 07/26/17 09 Oxycodone HCl/Acetaminophen 1 Each Tablet, 1 TAB PO Q4H PRN for BREAKTHROUGH PAIN Prescribed by: CARLOS ESCOTO on 07/26/17 09 Phenytoin Sodium Extended 100 Mg Capsule, 200 MG PO BID, (Reported) TAKES 2 (100MG) CAPSULES Pioglitazone HCl 30 Mg Tablet, 30 MG PO DAILY, (Reported) Ramipril 10 Mg Capsule, 10 MG PO DAILY, (Reported) Ranitidine HCl 150 Mg Tablet, 150 MG PO HS, (Reported) Sennosides/Docusate Sodium 1 Each Tablet, 1 EA PO BID Prescribed by: CARLOS ESCOTO on 07/26/17 0947 Simvastatin 40 Mg Tablet, 40 MG PO 1800, (Reported) Tamsulosin HCl 0.4 Mg Cap, 0.4 MG PO HS, (Reported) Temazepam 7.5 Mg Capsule, 7.5 MG PO HS PRN for INSOMNIA, (Reported) Timolol 5 Ml Drops, 1 DROP OU BID, (Reported) 0.5% Trazodone HCl 50 Mg Tablet, 50 MG PO HS, (Reported) Patient Home Medication List Home Medication List Reviewed: Yes Review of Systems Review of Systems Constitutional: see HPI All Other Systems Reviewed Negative Unless Noted: Yes (Negative excepted noted.) Past Abwprsk-Bxqygt-Xgriip Hx Past Med/Social Hx: Reviewed Nursing Past Med/Soc Hx Patient Social History Alcohol Use: Denies Use Recreational Drug Use: No Smoking Status: Current Everyday Smoker Type Used: Cigarettes 2nd Hand Smoke Exposure: Yes Recent Foreign Travel: No Contact w/Someone Who Travel: No Recent Infectious Disease Expo: No Recent Hopitalizations: No Immunizations Up To Date Date of Pneumonia Vaccine: Nov 24, 2016 Date of Influenza Vaccine: Aug 08, 2012 Seasonal Allergies Seasonal Allergies: No Past Medical History Surgeries: Yes Appendectomy, Cardiac, CABG, Coronary Stent, Gallbladder, Orthopedic, Penile Implant, Renal, Transurethral Resection Respiratory: Yes Asthma, COPD, Emphysema Currently Using CPAP: No Currently Using BIPAP: No Cardiac: Yes (CABG IN 1999; 16 CARDIAC STENTS) Coronary Artery Disease, High Cholesterol, Hypertension Neurological: Yes Headaches /Migraines, Seizure Disorder Reproductive Disorders: Yes (ED--PENILE IMPLANT) Sexually Transmitted Disease: No HIV/AIDS: No Genitourinary: Yes Benign Prostatic Hyperpl, Kidney Stones Gastrointestinal: Yes Gastroesophageal Reflux, Ulcer Musculoskeletal: Yes Arthritis Endocrine: Yes Diabetes, Non-Insulin dep HEENT: Yes Cataract, Glaucoma Loss of Vision: Denies Hearing Impairment: Hard of Hearing Cancer: No Psychosocial: Yes Anxiety, Bipolar, Depression Integumentary: No Blood Disorders: No Adverse Reaction/Blood Tranf: No Family Medical History Reviewed Nursing Family Hx Patient reports no known family medical history. Physical Exam Vital Signs Vital Signs - First Documented 07/14/20 11:36 Temp 35.8 Pulse 73 Resp 16 B/P (MAP) 136/63 (87) Pulse Ox 97 Capillary Refill : Less Than 3 Seconds Height, Weight, BMI Height: 5'5.00" Weight: 160lbs. 15.4oz. 73.090868zy; 28.00 BMI Method:Estimated General Appearance: No Apparent Distress Comments This is an elderly, chronically ill appearing male who appears nontoxic and in no acute distress. Head is normocephalic and atraumatic. Neck is supple and nontender. Oropharynx is moist. Lungs are clear to auscultation at all stations. There is a normal S1 and S2 without rubs or gallops and capillary refill is appropriate, less than 2 seconds globally. Abdomen is soft, nontender and nondistended. Skin is warm and dry without cyanosis, clubbing or edema. Examination the back reveals no erythema, warmth, swelling, step-offs or deformities. There is mild low lumbar midline tenderness to palpation which the patient states is typical for him and is not new. Psychiatrically, the patient demonstrates appropriate mood and affect and is alert. Neurologically, cranial nerves II through XII are intact and there are no lateralizing deficits noted. Visual alexander are intact to confrontation bilaterally. Speech is normal. Leg which is normal. Coordination is normal. There is no dysmetria with ruyvon-uy-nmax or suzl-if-dlur bilaterally. Strength is 5 out of 5 in all joints of bilateral upper and lower extremities. Sensation is intact to light touch in bilateral upper and lower extremities. Ambulation testing is deferred. Patient is alert and oriented to self and situation and year. Progress/Results/Core Measures Suspected Sepsis Recent Fever Within 48 Hours: No Infection Criteria Present: None New/Unexplained Altered Menta: No Sepsis Screen: No Definite Risk SIRS Temperature: Pulse: 73 Respiratory Rate: 16 Blood Pressure 136 /63 Mean: 87 Results/Orders Lab Results Laboratory Tests Test 07/14/20 11:45 Range/Units My Orders Orders - SONIA HERNANDEZ MD Oxycodone Immediate Rel Tablet (Oxyir Ta (07/14/20 11:45) Levetiracetam Injection (Keppra Injectio (07/14/20 11:41) Dilantin (Phenytoin) (07/14/20 11:41) Medications Given in ED Current Medications Medications Dose Ordered Sig/Brenna Route Start Time Stop Time Status Last Admin Dose Admin Oxycodone HCl 5 mg ONCE ONCE PO 07/14/20 11:45 07/14/20 11:46 DC 07/14/20 11:50 5 MG Vital Signs/I&O 07/14/20 11:36 Temp 35.8 Pulse 73 Resp 16 B/P (MAP) 136/63 (87) Pulse Ox 97 Capillary Refill : Less Than 3 Seconds Blood Pressure Mean: 87 Progress Note : Time: 12:10 Progress Note Elderly gentleman with a seizure disorder on phenytoin who presents for evaluation of a witnessed breakthrough seizure lasting less than 5 minutes at home prior to arrival. No report of, or sign of, any injury sustained during the episode. Patient has recovered to his neurocognitive baseline. Clinical examination reassuring and neurologic examination nonfocal. Accu-Chek appropriate in route. Vital signs appropriate here. We will check a phenytoin level although unfortunately this is a send out from this facility so we will not have this back for disposition. Therefore, we'll administer a gram of Keppra to prevent further breakthrough seizures today. We will observe for a time. If no further seizure activity is identified, anticipate disposition home with instructions to follow-up very closely with primary care and with neurology immediately after the long weekend. Patient understands and agrees with this plan of care. We'll give a dose of the patient's home oxycodone for low back discomfort, acute on chronic, without red flags today. 1300: Patient is resting comfortably in no acute distress upon reassessment. He is completely alert and responsive consistent with his typical neurocognitive baseline per EMS and nursing staff report. He reports his low back discomfort is well-controlled at this time. Keppra load has finished. We will proceed with discharge home as per plan above. The patient understands that if he feels worse is that of better or develops other new symptoms of concern that he will need to return to the emergency department immediately for reevaluation. As above, have counseled very close follow-up with neurology and with primary care immediately after the weekend. All questions are answered. Departure Impression Primary Impression: Other seizures Disposition: HOME, SELF-CARE Condition: Improved Departure-Patient Inst. Referrals: LOUANN COREY MD (PCP/Family) Primary Care Physician Patient Instructions: Seizures Add. Discharge Instructions: Follow-up very closely with Dr. Corey and with your neurologist immediately after the weekend for a reevaluation of your symptoms and a discussion of next steps in care. You will need to discuss with your neurologist whether your antiseizure medicines need to be adjusted or increased. Return to the emergency department right away with worsening symptoms of any kind or with any other new symptoms of concern. SONIA HERNANDEZ MD Jul 14, 2020 12:06
[2020-07-14 13:05] VITALS: BP 133/70
== END 2020-07-14 13:04 | disposition home or self-care (01) ==
LOC: EDUNIT# 11:30 → ER FS 11:31
DX: G40.89 Other seizures (principal); I10 Essential (primary) hypertension; E78.5 Hyperlipidemia, unspecified; I25.10 Atherosclerotic heart disease of native coronary artery without angina pectoris; J43.9 Emphysema, unspecified; E78.00 Pure hypercholesterolemia, unspecified; G43.909 Migraine, unspecified, not intractable, without status migrainosus; K21.9 Gastro-esophageal reflux disease without esophagitis; F41.9 Anxiety disorder, unspecified; F31.9 Bipolar disorder, unspecified; E11.9 Type 2 diabetes mellitus without complications; G89.29 Other chronic pain; F17.210 Nicotine dependence, cigarettes, uncomplicated; Z88.0 Allergy status to penicillin; Z88.1 Allergy status to other antibiotic agents; Z88.2 Allergy status to sulfonamides; Z88.8 Allergy status to other drugs, medicaments and biological substances; Z79.82 Long term (current) use of aspirin; Z79.02 Long term (current) use of antithrombotics/antiplatelets; Z79.51 Long term (current) use of inhaled steroids
CPT/HCPCS: 36415; 80185

== ENCOUNTER 2020-07-15 18:12 | Emergency (ER) | payer MEDICARE, MEDICAID ==
[~2020-07-15] VITALS: Ht 165.1 cm; Wt 70.0 kg
[2020-07-15] MEDS ORDERED: NS IV 500 ML 500 ML IV ONE (18:20)
[2020-07-15] MEDS ORDERED: morphine INJ 10 MG/ML 1ML (SYR OR VIAL) IVP STA (18:20)
[2020-07-15 18:43] LABS: BASOPHILS % (AUTO) 0 % (0-10); EOSINOPHILS # (AUTO) 0.1 10^3/uL (0.0-0.3); EOSINOPHILS % (AUTO) 1 % (0-10); HEMATOCRIT 30 % (40-54); HEMOGLOBIN 10.2 G/DL (13.3-17.7); LYMPHOCYTES # (AUTO) 1.7 X 10^3 (1.0-4.0); LYMPHOCYTES % (AUTO) 16 % (12-44); MEAN CORPUSCULAR HEMOGLOBIN 28 PG (25-34); MEAN CORPUSCULAR HGB CONC 35 G/DL (32-36); MEAN CORPUSCULAR VOLUME 81 FL (80-99); MEAN PLATELET VOLUME 7.3 FL (7.4-10.4); MONOCYTES # (AUTO) 0.8 X 10^3 (0.0-1.0); MONOCYTES % (AUTO) 7 % (0-12); NEUTROPHILS % (AUTO) 76 % (42-75); PLATELET COUNT 543 10^3/uL (130-400); WHITE BLOOD COUNT 10.6 10^3/uL (4.3-11.0)
[2020-07-15 18:56] LABS: INR 1.1 (0.8-1.4); PROTHROMBIN TIME PATIENT 14.6 SEC (12.2-14.7)
[2020-07-15] MEDS ORDERED: CATHETER FLUSH 10 ML SYR IV PRN (19:00)
[2020-07-15] MEDS ORDERED: HOLD METFORMIN - RECEIVED CONTRAST 20 ML VIAL IV SCH (19:00)
[2020-07-15] MEDS ORDERED: IOHEXOL 350 MG/ML 100 ML (OMNIPAQUE 350) VIAL IV ONE (19:00)
[2020-07-15] MEDS ORDERED: NS 100 ML (IVPB) BAG IV ONE (19:00)
--- NOTE | 2020-07-15 19:00 | NUR ---
Report to Kieran POWERS. To CT.
[2020-07-15 19:13] LABS: ALANINE AMINOTRANSFERASE 6 U/L (0-55); ALBUMIN 3.9 GM/DL (3.2-4.5); ALKALINE PHOSPHATASE 75 U/L (40-136); BILIRUBIN,TOTAL 0.3 MG/DL (0.1-1.0); BUN/CREATININE RATIO 21; CALCIUM 9.3 MG/DL (8.5-10.1); CARBON DIOXIDE 20 MMOL/L (21-32); CHLORIDE 91 MMOL/L (98-107); CREATININE SERUM 0.67 MG/DL (0.60-1.30); GFR ESTIMATED > 60; GLUCOSE 109 MG/DL (70-105); POTASSIUM 4.1 MMOL/L (3.6-5.0); SODIUM 127 MMOL/L (135-145); TOTAL PROTEIN 6.8 GM/DL (6.4-8.2)
[2020-07-15 19:14] LABS: LIPASE 54 U/L (8-78)
--- NOTE | 2020-07-15 19:18 | Diagnostic Imaging Report ---
EXAM: CHEST 1 VIEW AP/PA ONLY INDICATION: Chest pain. COMPARISON: Chest radiograph 03/24/2020. FINDINGS: Normal heart size and central pulmonary vascularity. Calcified aorta. Coronary stent. Sternotomy. No focal pulmonary opacity, pleural effusion or pneumothorax. No acute osseous findings. IMPRESSION: No acute cardiopulmonary findings. Dictated by: Dictated on workstation # [id number]
[2020-07-15 19:27] LABS: AMPHETAMINE SCREEN, URINE NEGATIVE (NEGATIVE); BARBITURATE SCREEN URINE POSITIVE (NEGATIVE); BENZODIAZEPINES SCREEN URINE POSITIVE (NEGATIVE); CANNABINOID SCREEN, URINE NEGATIVE (NEGATIVE); COCAINE SCREEN URINE NEGATIVE (NEGATIVE); METHADONE STAT NEGATIVE (NEGATIVE); METHAMPHETAMINE SCREEN URINE S NEGATIVE (NEGATIVE); OPIATE SCREEN URINE NEGATIVE (NEGATIVE); OXYCODONE STAT NEGATIVE (NEGATIVE); PROPOXYPHENE STAT NEGATIVE (NEGATIVE); TRICYCLIC ANTIDEPRESSANTS SCRE NEGATIVE (NEGATIVE)
[2020-07-15 19:31] LABS: BILIRUBIN,URINE NEGATIVE (NEGATIVE); CLARITY,URINE CLOUDY; COLOR,URINE YELLOW; GLUCOSE, URINE (UA) NEGATIVE (NEGATIVE); KETONES,URINE NEGATIVE (NEGATIVE); LEUKOCYTE ESTERASE ,URINE 2+ (NEGATIVE); NITRITE,URINE NEGATIVE (NEGATIVE); PROTEIN,URINE NEGATIVE (NEGATIVE)
[2020-07-15 19:32] LABS: BACTERIA,URINE FEW /HPF; WBC,URINE 50-100 /HPF
--- NOTE | 2020-07-15 19:32 | Diagnostic Imaging Report ---
PROCEDURE: CT head without contrast. TECHNIQUE: Multiple contiguous axial images were obtained through the brain without the use of intravenous contrast. Auto Exposure Controls were utilized during the CT exam to meet ALARA standards for radiation dose reduction. INDICATION: Altered mental status. Increasing seizure frequency. COMPARISON: CT head without contrast 03/24/2020. FINDINGS: Moderate generalized cerebral and cerebellar parenchymal volume loss. No CT evidence of a territorial infarction. No intracranial hemorrhage, mass effect, hydrocephalus or extra-axial fluid collections. Osseous structures are intact. Mild mucosal thickening in the left maxillary sinus. The mastoids are unremarkable. IMPRESSION: No acute intracranial CT findings. Dictated by: Dictated on workstation # [id number]
--- NOTE | 2020-07-15 19:40 | ED General ---
General Chief Complaint: Altered Mental Status Stated Complaint: SEIZURES,AMS Nursing Triage Note: Patient presents to ED with [facility] for medical alert call for seizure. Pt reported per himself that he was having a seizure. Pt arrives awake and not appearing ictal. Pt was seen by ER staff yesterday. Nursing Sepsis Screen: No Definite Risk History of Present Illness Date Seen by Provider: Jul 15, 2020 Time Seen by Provider: 18:15 Initial Comments The patient is a 69-year-old male with a complicated past medical history including hypertension, hyperlipidemia, coronary artery disease s/p stenting and CABG, wjr-orgjvmk-rgtbrqvvy diabetes, COPD not on home oxygen, seizure disorder on phenytoin, neurogenic bladder reliant on straight catheterization, chronic pain on oxycodone and OxyContin daily. At baseline, he is quite dysarthric and nearly immobile but is alert and oriented and follows commands without difficulty. He was seen in this emergency department yesterday for a witnessed generalized breakthrough seizure at home lasting less than 5 minutes. By the time he arrived to the emergency department yesterday, he was back to his neurocognitive baseline. A serum phenytoin level was obtained however this is a send out and still is not back. Note is made of the fact that in March of this year the patient did have an elevated phenytoin level. Patient was ultimately loaded with a gram of Keppra, observed for time to ensure no further seizure activity and discharged home with instructions to follow-up very closely with his neurologist immediately after the weekend for further discussion of his breakthrough seizure activity. Mr. Dalton presents today after hitting his [employer] button at home. When the company called, the patient reported to them that he was having a seizure. For EMS, the patient's complaint was both that he was "having a seizure" and also that he had "pain all over." Upon arrival here he repeats these complaints to me. Patient is alert and oriented, moving all extremities equally and is communicative with some dysarthria just as he was yesterday (his baseline as per EMS and nursing staff who are familiar with him). When asked to identify where he is having pain he points to his chest and abdomen. He is not further able to localize the pain that he is having. He reports compliance with his home oxycodone and OxyContin for chronic pain. He denies fevers, nausea or vomiting, headache, focal weakness, numbness, tingling, neck stiffness/pain/meningismus, v ision changes, shortness of breath, urinary symptoms. Vital signs are entirely appropriate here. I had a conversation with the patient's sister and DPOA, Hellen Veloz ([phone]). She reports that he has been having breakthrough seizures "every other day" for a couple of weeks. She reports that this is atypical for him. Allergies and Home Medications Allergies Coded Allergies: Penicillins (Verified Allergy, Unknown, 04/22/17) diazepam (Unverified Allergy, Unknown, 03/07/17) doxycycline (Unverified Allergy, Unknown, RASH, 03/07/17) phenobarbital (Unverified Allergy, Unknown, 03/07/17) RELAXES ME TOO MUCH piperacillin (Unverified Allergy, Unknown, RASH, PT HAS RECEIVED CEFAZOLIN IN THE PAST W/O ISSUE, 03/08/17) sulfamethoxazole (Verified Allergy, Unknown, 04/22/17) terazosin (Unverified Allergy, Unknown, 03/07/17) CHEST PAIN Home Medications Albuterol Sulfate 1 Puff Puff, 2 PUFF INH Q4H PRN for SHORTNESS OF BREATH, (Reported) Aspirin 81 Mg Tablet.dr, 81 MG PO DAILY, (Reported) Bethanechol Chloride 25 Mg Tablet, 25 MG PO QID, (Reported) Cefdinir 300 Mg Capsule, 300 MG PO BID Prescribed by: CARLOS ESCOTO on 03/25/20 1055 Clopidogrel Bisulfate 75 Mg Tablet, 75 MG PO DAILY, (Reported) Ezetimibe 10 Mg Tablet, 10 MG PO HS, (Reported) Fenofibrate Nanocrystallized 145 Mg Tablet, 145 MG PO DAILY, (Reported) Fentanyl 1 Each Patch.td72, 50 MCG TD Q72H Prescribed by: CARLOS ESCOTO on 07/26/17 0946 Ferrous Sulfate 325 Mg Tablet, 325 MG PO DAILY Prescribed by: CARLOS ESCOTO on 07/26/17 09 Fluconazole 100 Mg Tablet, 100 MG PO DAILY Prescribed by: CARLOS ESCOTO on 03/25/20 1055 Fluoxetine HCl 20 Mg Capsule, 40 MG PO DAILY, (Reported) TAKES 2 (20MG) CAPSULES Fluticasone Propionate 1 Ea Aero, 1 PUFF INH BID, (Reported) Fluticasone Propionate 16 Gm [place].susp, 2 SPRAYS NS DAILY, (Reported) Gabapentin 300 Mg Capsule, 300 MG PO HS, (Reported) Isosorbide Mononitrate 60 Mg Tab, 60 MG PO BID, (Reported) Lactulose 20 Gm/30 Ml Solution, 10 GM PO BID Prescribed by: CARLOS ESCOTO on 07/26/17946 Lorazepam 1 Mg Tablet, 1 MG PO BID, (Reported) Multivitamin 1 Each Capsule, 1 CAP PO DAILY, (Reported) Nitroglycerin 0.4 Mg Tab.subl, 0.4 MG SL UD PRN for CHEST PAIN, (Reported) Olanzapine 2.5 Mg Tablet, 2.5 MG PO HS, (Reported) Oxycodone HCl 20 Mg Tab.er.12h, 20 MG PO BID Prescribed by: CARLOS ESCOTO on 07/26/17945 Oxycodone HCl/Acetaminophen 1 Each Tablet, 1 TAB PO Q4H PRN for BREAKTHROUGH PAIN Prescribed by: CARLOS ESCOTO on 07/26/17945 Phenytoin Sodium Extended 100 Mg Capsule, 200 MG PO BID, (Reported) TAKES 2 (100MG) CAPSULES Pioglitazone HCl 30 Mg Tablet, 30 MG PO DAILY, (Reported) Ramipril 10 Mg Capsule, 10 MG PO DAILY, (Reported) Ranitidine HCl 150 Mg Tablet, 150 MG PO HS, (Reported) Sennosides/Docusate Sodium 1 Each Tablet, 1 EA PO BID Prescribed by: CARLOS ESCOTO on 07/26/17946 Simvastatin 40 Mg Tablet, 40 MG PO 1800, (Reported) Tamsulosin HCl 0.4 Mg Cap, 0.4 MG PO HS, (Reported) Temazepam 7.5 Mg Capsule, 7.5 MG PO HS PRN for INSOMNIA, (Reported) Timolol 5 Ml Drops, 1 DROP OU BID, (Reported) 0.5% Trazodone HCl 50 Mg Tablet, 50 MG PO HS, (Reported) Patient Home Medication List Home Medication List Reviewed: Yes Review of Systems Review of Systems Constitutional: see HPI All Other Systems Reviewed Negative Unless Noted: Yes (Negative excepted noted.) Past Xaijhcm-Alpbyl-Lscvyj Hx Past Med/Social Hx: Reviewed Nursing Past Med/Soc Hx Patient Social History Alcohol Use: Occasionally Uses Recreational Drug Use: No Smoking Status: Former Smoker Type Used: Cigarettes 2nd Hand Smoke Exposure: Yes Recent Foreign Travel: No Contact w/Someone Who Travel: No Recent Infectious Disease Expo: No Recent Hopitalizations: No Physical Abuse: No Sexual Abuse: No Mistreated: No Fear: No Immunizations Up To Date Tetanus Booster (TDap): Unknown Date of Pneumonia Vaccine: Nov 24, 2016 Date of Influenza Vaccine: Aug 08, 2012 Seasonal Allergies Seasonal Allergies: No Past Medical History Surgeries: Yes Appendectomy, Cardiac, CABG, Coronary Stent, Gallbladder, Orthopedic, Penile Implant, Renal, Transurethral Resection Respiratory: Yes Asthma, COPD, Emphysema Currently Using CPAP: No Currently Using BIPAP: No Cardiac: Yes (CABG IN 1999; 16 CARDIAC STENTS) Coronary Artery Disease, High Cholesterol, Hypertension Neurological: Yes Headaches /Migraines, Seizure Disorder Reproductive Disorders: Yes (ED--PENILE IMPLANT) Sexually Transmitted Disease: No HIV/AIDS: No Genitourinary: Yes Benign Prostatic Hyperpl, Kidney Stones Gastrointestinal: Yes Gastroesophageal Reflux, Ulcer Musculoskeletal: Yes Arthritis Endocrine: Yes Diabetes, Non-Insulin dep HEENT: Yes Cataract, Glaucoma Loss of Vision: Denies Hearing Impairment: Hard of Hearing Cancer: No Psychosocial: Yes Anxiety, Bipolar, Depression Integumentary: No Blood Disorders: No Adverse Reaction/Blood Tranf: No Family Medical History Reviewed Nursing Family Hx Patient reports no known family medical history. Physical Exam Vital Signs Vital Signs - First Documented 07/15/20 18:20 Temp 36.4 Pulse 76 Resp 25 B/P (MAP) 162/65 (97) Pulse Ox 98 O2 Delivery Room Air Capillary Refill : Less Than 3 Seconds Height, Weight, BMI Height: 5'5.00" Weight: 160lbs. 15.4oz. [id number]; 25.00 BMI Method:Estimated General Appearance: No Apparent Distress Comments Examination examination of the back This is an elderly male appearing chronically ill but nontoxic and in no acute distress. Head is normocephalic and atraumatic. Neck is supple and nontender. Oropharynx is moist. Lungs are clear to auscultation at all stations. There is a normal S1 and S2 without rubs or gallops and capillary refill is appropriate, less than 2 seconds globally. Abdomen is soft, nontender and nondistended. Skin is warm and dry without cyanosis, clubbing or edema. Psychiatrically, the patient demonstrates appropriate mood and affect and is alert. Neurologically, cranial nerves II through XII are intact and there are no lateralizing deficits noted. Visual alexander are intact to confrontation bilaterally. Speech is normal. Language is normal. Coordination is normal. There is no dysmetria with boynkt-te-hwtp bilaterally. Strength is 5 out of 5 in all joints of bilateral upper and lower extremities. Sensation is intact to light touch in bilateral upper and lower extremities. Ambulation testing is deferred. Patient is alert to self and situation and year. Examination of the back and the groin reveal no skin breakdown, erythema, warmth, swelling, tenderness or other acute abnormality. Progress/Results/Core Measures Suspected Sepsis Recent Fever Within 48 Hours: No Infection Criteria Present: None New/Unexplained Altered Menta: No Sepsis Screen: No Definite Risk SIRS Temperature: Pulse: 76 Respiratory Rate: 25 Laboratory Tests 07/15/20 18:25: White Blood Count 10.6 Blood Pressure 162 /65 Mean: 97 Laboratory Tests 07/15/20 18:25: Creatinine 0.67, INR Comment 1.1, Platelet Count 543H, Total Bilirubin 0.3 Results/Orders Lab Results Laboratory Tests Test 07/15/20 18:25 07/15/20 18:45 Range/Units White Blood Count 10.6 4.3-11.0 10^3/uL Red Blood Count 3.64 L 4.35-5.85 10^6/uL Hemoglobin 10.2 L 13.3-17.7 G/DL Hematocrit 30 L 40-54 % Mean Corpuscular Volume 81 80-99 FL Mean Corpuscular Hemoglobin 28 25-34 PG Mean Corpuscular Hemoglobin Concent 35 32-36 G/DL Red Cell Distribution Width 15.5 H 10.0-14.5 % Platelet Count 543 H 130-400 10^3/uL Mean Platelet Volume 7.3 L 7.4-10.4 FL Neutrophils (%) (Auto) 76 H 42-75 % Lymphocytes (%) (Auto) 16 12-44 % Monocytes (%) (Auto) 7 0-12 % Eosinophils (%) (Auto) 1 0-10 % Basophils (%) (Auto) 0 0-10 % Neutrophils # (Auto) 8.0 H 1.8-7.8 X 10^3 Lymphocytes # (Auto) 1.7 1.0-4.0 X 10^3 Monocytes # (Auto) 0.8 0.0-1.0 X 10^3 Eosinophils # (Auto) 0.1 0.0-0.3 10^3/uL Basophils # (Auto) 0.0 0.0-0.1 10^3/uL Prothrombin Time 14.6 12.2-14.7 SEC INR Comment 1.1 0.8-1.4 Activated Partial Thromboplast Time 49 H 24-35 SEC Sodium Level 127 L 135-145 MMOL/L Potassium Level 4.1 3.6-5.0 MMOL/L Chloride Level 91 L 98-107 MMOL/L Carbon Dioxide Level 20 L 21-32 MMOL/L Anion Gap 16 H 5-14 MMOL/L Blood Urea Nitrogen 14 7-18 MG/DL Creatinine 0.67 0.60-1.30 MG/DL Estimat Glomerular Filtration Rate > 60 BUN/Creatinine Ratio 21 Glucose Level 109 H 70-105 MG/DL Calcium Level 9.3 8.5-10.1 MG/DL Corrected Calcium 9.4 8.5-10.1 MG/DL Total Bilirubin 0.3 0.1-1.0 MG/DL Aspartate Amino Transf (AST/SGOT) 12 5-34 U/L Alanine Aminotransferase (ALT/SGPT) 6 0-55 U/L Alkaline Phosphatase 75 40-136 U/L Troponin I < 0.30 <0.30 NG/ML Total Protein 6.8 6.4-8.2 GM/DL Albumin 3.9 3.2-4.5 GM/DL Lipase 54 8-78 U/L Serum Alcohol < 10 <10 MG/DL Urine Color YELLOW Urine Clarity CLOUDY H Urine pH 6.0 5-9 Urine Specific [place] <=1.005 1.016-1.022 Urine Protein NEGATIVE NEGATIVE Urine Glucose (UA) NEGATIVE NEGATIVE Urine Ketones NEGATIVE NEGATIVE Urine Nitrite NEGATIVE NEGATIVE Urine Bilirubin NEGATIVE NEGATIVE Urine Urobilinogen 0.2 < = 1.0 MG/DL Urine Leukocyte Esterase 2+ H NEGATIVE Urine RBC (Auto) 1+ H NEGATIVE Urine RBC 2-5 H /HPF Urine WBC 50-100 H /HPF Urine Squamous Epithelial Cells 2-5 /HPF Urine Crystals NONE /LPF Urine Bacteria FEW H /HPF Urine Casts NONE /LPF Urine Mucus NEGATIVE /LPF Urine Culture Indicated YES Urine Opiates Screen NEGATIVE NEGATIVE Urine Oxycodone Screen NEGATIVE NEGATIVE Urine Methadone Screen NEGATIVE NEGATIVE Urine Propoxyphene Screen NEGATIVE NEGATIVE Urine Barbiturates Screen POSITIVE H NEGATIVE Ur Tricyclic Antidepressants Screen NEGATIVE NEGATIVE Urine Phencyclidine Screen NEGATIVE NEGATIVE Urine Amphetamines Screen NEGATIVE NEGATIVE Urine Methamphetamines Screen NEGATIVE NEGATIVE Urine Benzodiazepines Screen POSITIVE H NEGATIVE Urine Cocaine Screen NEGATIVE NEGATIVE Urine Cannabinoids Screen NEGATIVE NEGATIVE My Orders Orders - SONIA HERNANDEZ MD Cbc With Automated Diff (07/15/20 18:20) Comprehensive Metabolic Panel (07/15/20 18:20) Troponin I Fs (07/15/20 18:20) Ekg Tracing (07/15/20 18:20) Chest 1 View Ap/Pa Only (07/15/20 18:20) Protime With Inr (07/15/20 18:20) Partial Thromboplastin Time (07/15/20 18:20) Lipase (07/15/20 18:20) Ua Culture If Indicated (07/15/20 18:20) Ct Head Wo (07/15/20 18:20) Ct Chest/Abdomen/Pelvis W (07/15/20 18:20) Creatine Kinase (07/15/20 18:20) Alcohol (07/15/20 18:20) Drug Screen Stat (Urine) (07/15/20 18:20) Dilantin (Phenytoin) (07/15/20 18:20) Ed Iv/Invasive Line Start (07/15/20 18:20) Ns Iv 500 Ml (Sodium Chloride 0.9%) (07/15/20 18:20) Morphine Injection (Morphine Injection (07/15/20 18:20) Iohexol Injection (Omnipaque 350 Mg/Ml 1 (07/15/20 19:00) Received Contrast (Hold Metformin- Contr (07/15/20 19:00) Sodium Chloride Flush (Catheter Flush Sy (07/15/20 19:00) Ns (Ivpb) (Sodium Chloride 0.9% Ivpb Bag (07/15/20 19:00) Urine Culture (07/15/20 18:45) Ceftriaxone For Iv Use (Rocephin For I (07/15/20 20:00) Medications Given in ED Current Medications Medications Dose Ordered Sig/Brenna Route Start Time Stop Time Status Last Admin Dose Admin Ceftriaxone Sodium 1000 mg/ Sterile Water 10 ml @ 200 mls/hr ONCE ONCE IV 07/15/20 20:00 07/15/20 20:02 DC 07/15/20 19:55 200 MLS/HR Iohexol 100 ml ONCE ONCE IV 07/15/20 19:00 07/15/20 19:01 DC 07/15/20 19:16 100 ML Sodium Chloride 100 ml ONCE ONCE IV 07/15/20 19:00 07/15/20 19:01 DC 07/15/20 19:16 100 ML Sodium Chloride 500 ml @ 0 mls/hr Q0M ONCE IV 07/15/20 18:20 07/15/20 18:24 DC 07/15/20 18:37 0 MLS/HR Vital Signs/I&O 07/15/20 07/15/20 18:20 18:38 Temp 36.4 36.4 Pulse 76 Resp 25 B/P (MAP) 162/65 (97) Pulse Ox 98 O2 Delivery Room Air Capillary Refill : Less Than 3 Seconds Blood Pressure Mean: 97 Progress Note : Time: 19:43 Progress Note Elderly comorbid gentleman reporting breakthrough seizure activity at home; was able to report this himself today; may reflect some degree of partial seizure activity, but per his sister he has been having witnessed breakthrough seizures "every other day" for a couple of weeks. This is atypical for him. This is his second visit in 2 days with seizure concerns. He has a secondary complaint of burning "pain all over my body" localizing to his chest and abdomen, nonspecifically, when he is asked to identify where the pain is. Difficult diagnostic situation. We will check labs, EKG and imaging as noted, give a small fluid bolus and some medication for discomfort and then reevaluate. 2000: Patient is resting comfortably in no acute distress upon reassessment. Workup is complete and reveals pronounced evidence of cystitis with left-sided hydronephrosis and hydroureter of unclear significance, without obstructing calculus or other lesion seen. Patient also has a mildly low serum sodium at 127 (slightly worse than his baseline) and is slightly more anemic than his typical baseline (baseline Hgb is about 11). Feel the most likely explanation for his increased breakthrough seizure frequency recently is urinary tract infection. We'll give a dose of Rocephin. A urine culture has been sent. Patient has a documented allergy to penicillins but has tolerated cephalosporins in the past per records. Given age, comorbidities, and frequent breakthrough seizures recently, will need admission. Case is discussed with Dr. Escoto who agrees with me that the patient will benefit from neurology consultation while inpatient. Therefore, we'll transfer to [facility] where the patient is graciously accepted in transfer by Dr. Moise on behalf of attending Dr. Vila. Strongly recommend that once Mr. Dalton arrives at [facility] that a phenytoin level be checked. This is a send out for us and we do not have a level back from yesterday or today. ECG EKG : Comment Sinus rhythm, first-degree AV block, no acute ST elevation or depression, VT 232, QRS 91, QTC 428, EP interpretation. Diagnostic Imaging Comments CHEST 1 VIEW AP/PA ONLY EXAM: CHEST 1 VIEW AP/PA ONLY INDICATION: Chest pain. COMPARISON: Chest radiograph 03/24/2020. FINDINGS: Normal heart size and central pulmonary vascularity. Calcified aorta. Coronary stent. Sternotomy. No focal pulmonary opacity, pleural effusion or pneumothorax. No acute osseous findings. IMPRESSION: No acute cardiopulmonary findings. Dictated on workstation # [id number] CT CHEST/ABDOMEN/PELVIS W PROCEDURE: CT chest, abdomen, and pelvis with contrast. TECHNIQUE: Multiple contiguous axial images were obtained through the chest, abdomen, and pelvis after the administration of intravenous contrast. Auto Exposure Controls were utilized during the CT exam to meet ALARA standards for radiation dose reduction. INDICATION: Altered mental status. Weakness. Increasing seizure activity. Pain all over. COMPARISON: None. FINDINGS: CT CHEST: Lungs are clear. No pleural effusion or pneumothorax. Normal heart size. No pericardial effusion. Sternotomy with CABG. No mediastinal, hilar or axillary lymphadenopathy. No acute osseous findings. CT ABDOMEN AND PELVIS: Cholecystectomy. The liver, pancreas, spleen, adrenals, right kidney are negative. Marked wall thickening of the urinary bladder. There is also moderate left hydronephrosis with no obstructing lesion identified. The prostate is not well seen but does not appear significantly enlarged. Views of the pelvis are obscured by streak artifact from postoperative changes in both hips. Penile prosthesis. Appendectomy. No free intraperitoneal air or fluid. No lymphadenopathy. No evidence of bowel obstruction. No acute osseous findings. IMPRESSION: 1. Diffuse bladder wall thickening. There is also left hydronephrosis. No obstructing lesion identified. The prostate does not appear significantly enlarged but is obscured by streak artifact from bilateral postoperative changes in the hips. Recommend correlation with urinalysis. 2. No acute CT findings in the chest. Dictated on workstation # [id number] PROCEDURE: CT head without contrast. TECHNIQUE: Multiple contiguous axial images were obtained through the brain without the use of intravenous contrast. Auto Exposure Controls were utilized during the CT exam to meet ALARA standards for radiation dose reduction. INDICATION: Altered mental status. Increasing seizure frequency. COMPARISON: CT head without contrast 03/24/2020. FINDINGS: Moderate generalized cerebral and cerebellar parenchymal volume loss. No CT evidence of a territorial infarction. No intracranial hemorrhage, mass effect, hydrocephalus or extra-axial fluid collections. Osseous structures are intact. Mild mucosal thickening in the left maxillary sinus. The mastoids are unremarkable. IMPRESSION: No acute intracranial CT findings. Dictated on workstation # [id number] Departure Impression Primary Impression: Acute hyponatremia Additional Impressions: Breakthrough seizure Allodynia Catheter-associated urinary tract infection Qualified Codes: T83.511A - Infection and inflammatory reaction due to indwelling urethral catheter, initial encounter; N39.0 - Urinary tract infection, site not specified Hydronephrosis of left kidney Disposition: XF [facility]OS[facility] Condition: Stable Transfer Transfer Reason: Exceeds level of care Transfer Progress Notes Spoke with Dr. Escoto concerning [facility] admission; she recommends transfer to a facility with neurology coverage, which I agree with. Therefore, transferring to [facility]. Method of Transfer: EMS Departure-Patient Inst. Referrals: LOUANN COREY MD (PCP/Family) Primary Care Physician SONIA HERNANDEZ MD Jul 15, 2020 19:40
--- NOTE | 2020-07-15 19:47 | Diagnostic Imaging Report ---
PROCEDURE: CT chest, abdomen, and pelvis with contrast. TECHNIQUE: Multiple contiguous axial images were obtained through the chest, abdomen, and pelvis after the administration of intravenous contrast. Auto Exposure Controls were utilized during the CT exam to meet ALARA standards for radiation dose reduction. INDICATION: Altered mental status. Weakness. Increasing seizure activity. Pain all over. COMPARISON: None. FINDINGS: CT CHEST: Lungs are clear. No pleural effusion or pneumothorax. Normal heart size. No pericardial effusion. Sternotomy with CABG. No mediastinal, hilar or axillary lymphadenopathy. No acute osseous findings. CT ABDOMEN AND PELVIS: Cholecystectomy. The liver, pancreas, spleen, adrenals, right kidney are negative. Marked wall thickening of the urinary bladder. There is also moderate left hydronephrosis with no obstructing lesion identified. The prostate is not well seen but does not appear significantly enlarged. Views of the pelvis are obscured by streak artifact from postoperative changes in both hips. Penile prosthesis. Appendectomy. No free intraperitoneal air or fluid. No lymphadenopathy. No evidence of bowel obstruction. No acute osseous findings. IMPRESSION: 1. Diffuse bladder wall thickening. There is also left hydronephrosis. No obstructing lesion identified. The prostate does not appear significantly enlarged but is obscured by streak artifact from bilateral postoperative changes in the hips. Recommend correlation with urinalysis. 2. No acute CT findings in the chest. Dictated by: Dictated on workstation # [id number]
[2020-07-15] MEDS ORDERED: cefTRIAXone FOR IV USE 1,000 MG in WATER (STERILE) FOR INJECTION 10 ML IV ONE (20:00)
--- NOTE | 2020-07-15 20:05 | NUR ---
Dr. Barton contacted Pts sister Hellen in regards to transferring the pt to another hospital. She prefers [facility] but if that is not an option she states [facility] in [place] is okay.
--- NOTE | 2020-07-15 20:10 | NUR ---
Per Dr. Oralia Kaur and Abdulkadir are both on divert.
--- NOTE | 2020-07-15 20:58 | NUR ---
[facility] called with room number 2009.
--- NOTE | 2020-07-15 21:00 | NUR ---
EMS contacted with request for transfer.
[2020-07-15 21:21] VITALS: BP 127/58
--- NOTE | 2020-07-15 21:45 | NUR ---
Report called to PRIYA Stern
[2020-07-16 02:09] LABS: CREATINE KINASE 22 U/L (30-200)
== END 2020-07-15 21:21 | disposition short-term general hospital (02) ==
LOC: EDUNIT# 18:12 → ER FS 18:13
DX: E87.1 Hypo-osmolality and hyponatremia (principal); R20.3 Hyperesthesia; T83.511A Infection and inflammatory reaction due to indwelling urethral catheter, initial encounter; N39.0 Urinary tract infection, site not specified; N13.39 Other hydronephrosis; E78.00 Pure hypercholesterolemia, unspecified; G40.909 Epilepsy, unspecified, not intractable, without status epilepticus; F41.9 Anxiety disorder, unspecified; F31.9 Bipolar disorder, unspecified; I10 Essential (primary) hypertension; E11.9 Type 2 diabetes mellitus without complications; K21.9 Gastro-esophageal reflux disease without esophagitis; N40.0 Benign prostatic hyperplasia without lower urinary tract symptoms; Z87.891 Personal history of nicotine dependence; Z95.5 Presence of coronary angioplasty implant and graft; Z95.9 Presence of cardiac and vascular implant and graft, unspecified; Z88.0 Allergy status to penicillin; Z88.1 Allergy status to other antibiotic agents; Z88.2 Allergy status to sulfonamides; Z88.8 Allergy status to other drugs, medicaments and biological substances; Z79.82 Long term (current) use of aspirin
CPT/HCPCS: 36415; 51701; 70450; 71045; 71260; 74177; 80053; 80185; 80306; 81000; 82550; 83690; 84484; 85025; 85610; 85730; 87077; 87088; 93005; 99284; G0480; 80320

== ENCOUNTER 2020-07-20 09:05 | Emergency (ER) | payer MEDICARE, MEDICAID ==
[~2020-07-20] VITALS: Ht 167 cm; Wt 85.0 kg
--- NOTE | 2020-07-20 09:37 | ED General ---
General Chief Complaint: Neurological Problems Stated Complaint: SEIZURE Nursing Triage Note: PT CALLED HOME HEALTH AND TOLD THEM HE WAS ACTIVELY HAVING A SEIZURE. EMS WAS CALLED. PER EMS PT WAS NOT POSTSTICTAL. Nursing Sepsis Screen: No Definite Risk Source of Information: Patient, EMS Exam Limitations: No Limitations History of Present Illness Date Seen by Provider: Jul 20, 2020 Time Seen by Provider: 09:25 Initial Comments 69-year-old male with history of intermittent seizures and on seizure medication presents via EMS with complaint of recurrent seizure. Patient called home health this morning to notify them that he was having a seizure, they advised to go to the ER. Patient recently admitted and discharged, (no information available) from a hospital in [place] regarding his seizure disorder and states that his medications were changed at discharge, although he states he hasn't changed what he normally takes yet. Allergies and Home Medications Allergies Coded Allergies: Penicillins (Verified Allergy, Unknown, 04/22/17) diazepam (Unverified Allergy, Unknown, 03/07/17) doxycycline (Unverified Allergy, Unknown, RASH, 03/07/17) phenobarbital (Unverified Allergy, Unknown, 03/07/17) RELAXES ME TOO MUCH piperacillin (Unverified Allergy, Unknown, RASH, PT HAS RECEIVED CEFAZOLIN IN THE PAST W/O ISSUE, 03/08/17) sulfamethoxazole (Verified Allergy, Unknown, 04/22/17) terazosin (Unverified Allergy, Unknown, 03/07/17) CHEST PAIN Home Medications Albuterol Sulfate 1 Puff Puff, 2 PUFF INH Q4H PRN for SHORTNESS OF BREATH, (Reported) Aspirin 81 Mg Tablet.dr, 81 MG PO DAILY, (Reported) Bethanechol Chloride 25 Mg Tablet, 25 MG PO QID, (Reported) Cefdinir 300 Mg Capsule, 300 MG PO BID Prescribed by: CARLOS ESCOTO on 03/25/20 1055 Clopidogrel Bisulfate 75 Mg Tablet, 75 MG PO DAILY, (Reported) Ezetimibe 10 Mg Tablet, 10 MG PO HS, (Reported) Fenofibrate Nanocrystallized 145 Mg Tablet, 145 MG PO DAILY, (Reported) Fentanyl 1 Each Patch.td72, 50 MCG TD Q72H Prescribed by: CARLOS ESCOTO on 07/26/17 0946 Ferrous Sulfate 325 Mg Tablet, 325 MG PO DAILY Prescribed by: CARLOS ESCOTO on 07/26/17945 Fluconazole 100 Mg Tablet, 100 MG PO DAILY Prescribed by: CARLOS ESCOTO on 03/25/20 105 Fluoxetine HCl 20 Mg Capsule, 40 MG PO DAILY, (Reported) TAKES 2 (20MG) CAPSULES Fluticasone Propionate 1 Ea Aero, 1 PUFF INH BID, (Reported) Fluticasone Propionate 16 Gm [place].susp, 2 SPRAYS NS DAILY, (Reported) Gabapentin 300 Mg Capsule, 300 MG PO HS, (Reported) Isosorbide Mononitrate 60 Mg Tab, 60 MG PO BID, (Reported) Lactulose 20 Gm/30 Ml Solution, 10 GM PO BID Prescribed by: CARLOS ESCOTO on 07/26/17946 Lorazepam 1 Mg Tablet, 1 MG PO BID, (Reported) Multivitamin 1 Each Capsule, 1 CAP PO DAILY, (Reported) Nitroglycerin 0.4 Mg Tab.subl, 0.4 MG SL UD PRN for CHEST PAIN, (Reported) Olanzapine 2.5 Mg Tablet, 2.5 MG PO HS, (Reported) Oxycodone HCl 20 Mg Tab.er.12h, 20 MG PO BID Prescribed by: CARLOS ESCOTO on 07/26/17945 Oxycodone HCl/Acetaminophen 1 Each Tablet, 1 TAB PO Q4H PRN for BREAKTHROUGH PAIN Prescribed by: CARLOS ESCOTO on 07/26/17945 Phenytoin Sodium Extended 100 Mg Capsule, 200 MG PO BID, (Reported) TAKES 2 (100MG) CAPSULES Pioglitazone HCl 30 Mg Tablet, 30 MG PO DAILY, (Reported) Ramipril 10 Mg Capsule, 10 MG PO DAILY, (Reported) Ranitidine HCl 150 Mg Tablet, 150 MG PO HS, (Reported) Sennosides/Docusate Sodium 1 Each Tablet, 1 EA PO BID Prescribed by: CARLOS ESCOTO on 07/26/17946 Simvastatin 40 Mg Tablet, 40 MG PO 1800, (Reported) Tamsulosin HCl 0.4 Mg Cap, 0.4 MG PO HS, (Reported) Temazepam 7.5 Mg Capsule, 7.5 MG PO HS PRN for INSOMNIA, (Reported) Timolol 5 Ml Drops, 1 DROP OU BID, (Reported) 0.5% Trazodone HCl 50 Mg Tablet, 50 MG PO HS, (Reported) Patient Home Medication List Home Medication List Reviewed: Yes Review of Systems Review of Systems Constitutional: No dizziness, No fever, No malaise Respiratory: no symptoms reported; No cough, No short of breath Cardiovascular: no symptoms reported; No chest pain, No edema, No palpitations Gastrointestinal: No abdominal pain, No nausea, No vomiting Musculoskeletal: No back pain, No joint pain Psychiatric/Neurological: Denies Numbness, Denies Paresthesia; Seizure Past Gtkdhfy-Iozace-Cpcwqx Hx Past Med/Social Hx: Reviewed Nursing Past Med/Soc Hx Patient Social History Alcohol Use: Denies Use Recreational Drug Use: No Smoking Status: Current Everyday Smoker Type Used: Cigarettes 2nd Hand Smoke Exposure: Yes Recent Foreign Travel: No Contact w/Someone Who Travel: No Recent Infectious Disease Expo: No Recent Hopitalizations: Yes (Discharged 07/19/2020) Physical Abuse: No Sexual Abuse: No Mistreated: No Fear: No Immunizations Up To Date Tetanus Booster (TDap): Unknown Date of Pneumonia Vaccine: Nov 24, 2016 Date of Influenza Vaccine: Aug 08, 2012 Seasonal Allergies Seasonal Allergies: No Past Medical History Surgeries: Yes Appendectomy, Cardiac, CABG, Coronary Stent, Gallbladder, Orthopedic, Penile Implant, Renal, Transurethral Resection Respiratory: Yes Asthma, COPD, Emphysema Currently Using CPAP: No Currently Using BIPAP: No Cardiac: Yes (CABG [place] 1999; 16 CARDIAC STENTS) Coronary Artery Disease, High Cholesterol, Hypertension Neurological: Yes Headaches /Migraines, Seizure Disorder Reproductive Disorders: Yes (ED--PENILE IMPLANT) Sexually Transmitted Disease: No HIV/AIDS: No Genitourinary: Yes Benign Prostatic Hyperpl, Kidney Stones Gastrointestinal: Yes Gastroesophageal Reflux, Ulcer Musculoskeletal: Yes Arthritis Endocrine: Yes Diabetes, Non-Insulin dep HEENT: Yes Cataract, Glaucoma Loss of Vision: Denies Hearing Impairment: Hard of Hearing Cancer: No Psychosocial: Yes Anxiety, Bipolar, Depression Integumentary: No Blood Disorders: No Adverse Reaction/Blood Tranf: No Family Medical History Patient reports no known family medical history. Physical Exam Vital Signs Vital Signs - First Documented 07/20/20 09:11 Temp 36.5 Pulse 79 Resp 18 B/P (MAP) 142/56 (84) Pulse Ox 97 O2 Delivery Room Air Capillary Refill : Less Than 3 Seconds Height, Weight, BMI Height: 5'5.00" Weight: 160lbs. 15.4oz. [id number]; 30.00 BMI Method:Estimated General Appearance: No Apparent Distress, WD/WN Respiratory: Chest Non Tender, Lungs Clear Cardiovascular: Regular Rate, Rhythm, No Edema Gastrointestinal: Non Tender, Soft Extremity: Normal Capillary Refill, Non Tender, No Calf Tenderness Neurologic/Psychiatric: Alert, Oriented x3, No Motor/Sensory Deficits, Normal Mood/Affect Skin: Normal Color, Warm/Dry Progress/Results/Core Measures Suspected Sepsis Recent Fever Within 48 Hours: No Infection Criteria Present: None New/Unexplained Altered Menta: No Sepsis Screen: No Definite Risk SIRS Temperature: Pulse: 79 Respiratory Rate: 18 Laboratory Tests 07/20/20 09:30: White Blood Count 8.6 Blood Pressure 142 /56 Mean: 84 Laboratory Tests 07/20/20 09:30: Creatinine 0.63, Platelet Count 578H, Total Bilirubin 0.4 Results/Orders Lab Results Laboratory Tests Test 07/20/20 09:30 Range/Units White Blood Count 8.6 4.3-11.0 10^3/uL Red Blood Count 4.02 L 4.35-5.85 10^6/uL Hemoglobin 11.1 L 13.3-17.7 G/DL Hematocrit 33 L 40-54 % Mean Corpuscular Volume 83 80-99 FL Mean Corpuscular Hemoglobin 28 25-34 PG Mean Corpuscular Hemoglobin Concent 33 32-36 G/DL Red Cell Distribution Width 15.7 H 10.0-14.5 % Platelet Count 578 H 130-400 10^3/uL Mean Platelet Volume 7.5 7.4-10.4 FL Neutrophils (%) (Auto) 78 H 42-75 % Lymphocytes (%) (Auto) 11 L 12-44 % Monocytes (%) (Auto) 9 0-12 % Eosinophils (%) (Auto) 1 0-10 % Basophils (%) (Auto) 0 0-10 % Neutrophils # (Auto) 6.8 1.8-7.8 X 10^3 Lymphocytes # (Auto) 0.9 L 1.0-4.0 X 10^3 Monocytes # (Auto) 0.8 0.0-1.0 X 10^3 Eosinophils # (Auto) 0.1 0.0-0.3 10^3/uL Basophils # (Auto) 0.0 0.0-0.1 10^3/uL Sodium Level 135 135-145 MMOL/L Potassium Level 4.4 3.6-5.0 MMOL/L Chloride Level 98 98-107 MMOL/L Carbon Dioxide Level 24 21-32 MMOL/L Anion Gap 13 5-14 MMOL/L Blood Urea Nitrogen 9 7-18 MG/DL Creatinine 0.63 0.60-1.30 MG/DL Estimat Glomerular Filtration Rate > 60 BUN/Creatinine Ratio 14 Glucose Level 147 H 70-105 MG/DL Calcium Level 9.8 8.5-10.1 MG/DL Corrected Calcium 9.9 8.5-10.1 MG/DL Total Bilirubin 0.4 0.1-1.0 MG/DL Aspartate Amino Transf (AST/SGOT) 13 5-34 U/L Alanine Aminotransferase (ALT/SGPT) 8 0-55 U/L Alkaline Phosphatase 106 40-136 U/L Total Protein 7.3 6.4-8.2 GM/DL Albumin 3.9 3.2-4.5 GM/DL My Orders Orders - SNOW MARTINI DO Cbc With Automated Diff (07/20/20 09:26) Comprehensive Metabolic Panel (07/20/20 09:26) Urinalysis (07/20/20 09:26) Gabapentin Plasma (07/20/20 09:36) Vital Signs/I&O 07/20/20 07/20/20 09:11 10:08 Temp 36.5 36.5 Pulse 79 82 Resp 18 18 B/P (MAP) 142/56 (84) 138/62 (84) Pulse Ox 97 97 O2 Delivery Room Air Capillary Refill : Less Than 3 Seconds Blood Pressure Mean: 84 Departure Impression Primary Impression: Seizure disorder Disposition: 01 HOME, SELF-CARE Condition: Stable Departure-Patient Inst. Decision time for Depature: 10:01 Referrals: LOUANN COUCH MD (PCP/Family) Primary Care Physician Add. Discharge Instructions: see Dr Couch for follow-up in 1 week to discuss your seizure episodes and multiple ER visits. All discharge instructions reviewed with patient and/or family. Voiced understanding. SNOW MARTINI DO Jul 20, 2020 09:37
[2020-07-20 09:43] LABS: BASOPHILS % (AUTO) 0 % (0-10); EOSINOPHILS # (AUTO) 0.1 10^3/uL (0.0-0.3); EOSINOPHILS % (AUTO) 1 % (0-10); HEMATOCRIT 33 % (40-54); HEMOGLOBIN 11.1 G/DL (13.3-17.7); LYMPHOCYTES # (AUTO) 0.9 X 10^3 (1.0-4.0); LYMPHOCYTES % (AUTO) 11 % (12-44); MEAN CORPUSCULAR HEMOGLOBIN 28 PG (25-34); MEAN CORPUSCULAR HGB CONC 33 G/DL (32-36); MEAN CORPUSCULAR VOLUME 83 FL (80-99); MEAN PLATELET VOLUME 7.5 FL (7.4-10.4); MONOCYTES # (AUTO) 0.8 X 10^3 (0.0-1.0); MONOCYTES % (AUTO) 9 % (0-12); NEUTROPHILS # (AUTO) 6.8 X 10^3 (1.8-7.8); NEUTROPHILS % (AUTO) 78 % (42-75); PLATELET COUNT 578 10^3/uL (130-400); WHITE BLOOD COUNT 8.6 10^3/uL (4.3-11.0)
[2020-07-20 09:56] LABS: ALANINE AMINOTRANSFERASE 8 U/L (0-55); ALBUMIN 3.9 GM/DL (3.2-4.5); ALKALINE PHOSPHATASE 106 U/L (40-136); BILIRUBIN,TOTAL 0.4 MG/DL (0.1-1.0); BUN/CREATININE RATIO 14; CALCIUM 9.8 MG/DL (8.5-10.1); CARBON DIOXIDE 24 MMOL/L (21-32); CHLORIDE 98 MMOL/L (98-107); CREATININE SERUM 0.63 MG/DL (0.60-1.30); GFR ESTIMATED > 60; GLUCOSE 147 MG/DL (70-105); POTASSIUM 4.4 MMOL/L (3.6-5.0); SODIUM 135 MMOL/L (135-145); TOTAL PROTEIN 7.3 GM/DL (6.4-8.2)
[2020-07-20 10:08] VITALS: BP 138/62
== END 2020-07-20 10:09 | disposition home or self-care (01) ==
LOC: EDUNIT# 09:05 → ER FS 09:06
DX: G40.909 Epilepsy, unspecified, not intractable, without status epilepticus (principal); F17.210 Nicotine dependence, cigarettes, uncomplicated; J43.9 Emphysema, unspecified; I25.10 Atherosclerotic heart disease of native coronary artery without angina pectoris; E78.00 Pure hypercholesterolemia, unspecified; I10 Essential (primary) hypertension; E11.9 Type 2 diabetes mellitus without complications; F41.9 Anxiety disorder, unspecified; F31.9 Bipolar disorder, unspecified; K21.9 Gastro-esophageal reflux disease without esophagitis; G43.909 Migraine, unspecified, not intractable, without status migrainosus; Z88.0 Allergy status to penicillin; Z88.1 Allergy status to other antibiotic agents; Z95.1 Presence of aortocoronary bypass graft; Z88.8 Allergy status to other drugs, medicaments and biological substances; Z88.2 Allergy status to sulfonamides; Z79.82 Long term (current) use of aspirin; Z79.02 Long term (current) use of antithrombotics/antiplatelets; Z79.51 Long term (current) use of inhaled steroids
CPT/HCPCS: 36415; 80053; 80171; 85025

== ENCOUNTER 2020-08-17 22:55 | Inpatient (IN) | payer MEDICARE, MEDICAID ==
[~2020-08-17] VITALS: Ht 165.1 cm; Wt 73.0 kg
--- NOTE | 2020-08-17 23:41 | ED Respiratory ---
General Chief Complaint: Respiratory Problems Stated Complaint: RESP DISTRESS History of Present Illness Date Seen by Provider: Aug 17, 2020 Time Seen by Provider: 23:00 Initial Comments The patient is a 69-year-old male with a complicated past medical history including hypertension, hyperlipidemia, coronary artery disease s/p stenting and CABG, vwq-rrrspww-mahjdawkv diabetes, COPD not on home oxygen, seizure disorder on phenytoin, neurogenic bladder reliant on straight catheterization, chronic pain on oxycodone and OxyContin daily. At baseline, he is quite dysarthric and nearly immobile but is alert and oriented and follows commands without difficulty. Mr. Dalton presents for evaluation of progressive shortness of breath and dyspnea with exertion with onset over the last 1 week, slowly progressive since onset. He has been compliant with his home breathing medicines without relief of symptoms. He was administered Solu-Medrol en route by EMS. He reports associated left-sided sternal chest pain, onset about the last 1-2 days. He states he chest pain has been constant and is unable to further characterize it. He reports a cough that is a little worse than usual. He denies associated fevers, upper respiratory congestion/rhinorrhea, abdominal pain, flank pain, back pain, dysuria, changes in bowel habits. Patient is alert and appropriately interactive, moving all extremities, dysarthric as per his baseline, and in no acute distress with appropriate vital signs including oxygenation upon initial evaluation here in the emergency department. He is audibly wheezing and slightly to Neck. Patient's sister and DPOA is Hellen Veloz ([phone]). Allergies and Home Medications Allergies Coded Allergies: Penicillins (Verified Allergy, Unknown, 04/22/17) diazepam (Unverified Allergy, Unknown, 03/07/17) doxycycline (Unverified Allergy, Unknown, RASH, 03/07/17) phenobarbital (Unverified Allergy, Unknown, 03/07/17) RELAXES ME TOO MUCH piperacillin (Unverified Allergy, Unknown, RASH, PT HAS RECEIVED CEFAZOLIN IN THE PAST W/O ISSUE, 03/08/17) sulfamethoxazole (Verified Allergy, Unknown, 04/22/17) terazosin (Unverified Allergy, Unknown, 03/07/17) CHEST PAIN Home Medications Albuterol Sulfate 1 Puff Puff, 2 PUFF INH Q4H PRN for SHORTNESS OF BREATH, (Reported) Aspirin 81 Mg Tablet.dr, 81 MG PO DAILY, (Reported) Bethanechol Chloride 25 Mg Tablet, 25 MG PO QID, (Reported) Cefdinir 300 Mg Capsule, 300 MG PO BID Prescribed by: CARLOS ESCOTO on 03/25/201054 Clopidogrel Bisulfate 75 Mg Tablet, 75 MG PO DAILY, (Reported) Ezetimibe 10 Mg Tablet, 10 MG PO HS, (Reported) Fenofibrate Nanocrystallized 145 Mg Tablet, 145 MG PO DAILY, (Reported) Fentanyl 1 Each Patch.td72, 50 MCG TD Q72H Prescribed by: CARLOS ESCOTO on 07/26/17945 Ferrous Sulfate 325 Mg Tablet, 325 MG PO DAILY Prescribed by: CARLOS ESCOTO on 07/26/17945 Fluconazole 100 Mg Tablet, 100 MG PO DAILY Prescribed by: CARLOS ESCOTO on 03/25/201054 Fluoxetine HCl 20 Mg Capsule, 40 MG PO DAILY, (Reported) TAKES 2 (20MG) CAPSULES Fluticasone Propionate 1 Ea Aero, 1 PUFF INH BID, (Reported) Fluticasone Propionate 16 Gm [place].susp, 2 SPRAYS NS DAILY, (Reported) Gabapentin 300 Mg Capsule, 300 MG PO HS, (Reported) Isosorbide Mononitrate 60 Mg Tab, 60 MG PO BID, (Reported) Lactulose 20 Gm/30 Ml Solution, 10 GM PO BID Prescribed by: CARLOS ESCOTO on 07/26/17946 Lorazepam 1 Mg Tablet, 1 MG PO BID, (Reported) Multivitamin 1 Each Capsule, 1 CAP PO DAILY, (Reported) Nitroglycerin 0.4 Mg Tab.subl, 0.4 MG SL UD PRN for CHEST PAIN, (Reported) Olanzapine 2.5 Mg Tablet, 2.5 MG PO HS, (Reported) Oxycodone HCl 20 Mg Tab.er.12h, 20 MG PO BID Prescribed by: CARLOS ESCOTO on 07/26/17945 Oxycodone HCl/Acetaminophen 1 Each Tablet, 1 TAB PO Q4H PRN for BREAKTHROUGH PAIN Prescribed by: CARLOS ESCOTO on 07/26/17945 Phenytoin Sodium Extended 100 Mg Capsule, 200 MG PO BID, (Reported) TAKES 2 (100MG) CAPSULES Pioglitazone HCl 30 Mg Tablet, 30 MG PO DAILY, (Reported) Ramipril 10 Mg Capsule, 10 MG PO DAILY, (Reported) Ranitidine HCl 150 Mg Tablet, 150 MG PO HS, (Reported) Sennosides/Docusate Sodium 1 Each Tablet, 1 EA PO BID Prescribed by: CARLOS ESCOTO on 07/26/17 0947 Simvastatin 40 Mg Tablet, 40 MG PO 1800, (Reported) Tamsulosin HCl 0.4 Mg Cap, 0.4 MG PO HS, (Reported) Temazepam 7.5 Mg Capsule, 7.5 MG PO HS PRN for INSOMNIA, (Reported) Timolol 5 Ml Drops, 1 DROP OU BID, (Reported) 0.5% Trazodone HCl 50 Mg Tablet, 50 MG PO HS, (Reported) Patient Home Medication List Home Medication List Reviewed: Yes Review of Systems Review of Systems Constitutional: see HPI All Other Systems Reviewed Negative Unless Noted: Yes (Negative excepted noted.) Past Vuxommh-Vqouug-Vfgues Hx Past Med/Social Hx: Reviewed Nursing Past Med/Soc Hx Patient Social History Type Used: Cigarettes 2nd Hand Smoke Exposure: Yes Recent Foreign Travel: No Contact w/Someone Who Travel: No Recent Hopitalizations: Yes (Discharged 07/19/2020) Immunizations Up To Date Tetanus Booster (TDap): Unknown Date of Pneumonia Vaccine: Nov 24, 2016 Date of Influenza Vaccine: Aug 08, 2012 Seasonal Allergies Seasonal Allergies: No Past Medical History Surgeries: Yes Appendectomy, Cardiac, CABG, Coronary Stent, Gallbladder, Orthopedic, Penile Implant, Renal, Transurethral Resection Respiratory: Yes Asthma, COPD, Emphysema Currently Using CPAP: No Currently Using BIPAP: No Cardiac: Yes (CABG [place] 1999; 16 CARDIAC STENTS) Coronary Artery Disease, High Cholesterol, Hypertension Neurological: Yes Headaches /Migraines, Seizure Disorder Reproductive Disorders: Yes (ED--PENILE IMPLANT) Sexually Transmitted Disease: No HIV/AIDS: No Genitourinary: Yes Benign Prostatic Hyperpl, Kidney Stones Gastrointestinal: Yes Gastroesophageal Reflux, Ulcer Musculoskeletal: Yes Arthritis Endocrine: Yes Diabetes, Non-Insulin dep HEENT: Yes Cataract, Glaucoma Loss of Vision: Denies Hearing Impairment: Hard of Hearing Cancer: No Psychosocial: Yes Anxiety, Bipolar, Depression Integumentary: No Blood Disorders: No Adverse Reaction/Blood Tranf: No Family Medical History Reviewed Nursing Family Hx Patient reports no known family medical history. Physical Exam Capillary Refill : Height: 5'5.00" Weight: 160lbs. 15.4oz. [id number]; 30.00 BMI Method:Estimated General Appearance: no apparent distress This is an elderly chronically ill-appearing male appearing nontoxic and in no acute distress. Head is normocephalic and atraumatic. Neck is supple and nontender. Oropharynx is moist. Lungs with wheezes and crackles to all alexander and diminished air movement bilaterally. Patient is speaking comfortably in full sentences. There is a normal S1 and S2 without rubs or gallops and capillary refill is appropriate, less than 2 seconds globally. Abdomen is soft, nontender and nondistended. Skin is warm and dry without cyanosis, clubbing or edema. Psychiatrically, the patient demonstrates appropriate mood and affect and is alert. Examination of the bilateral lower extremities is remarkable for no calf tenderness or swelling bilaterally, intact 2+ DP and PT pulses bilaterally and mild pitting peripheral edema, 1+, to level of the mid shins bilaterally. Progress/Results/Core Measures Suspected Sepsis SIRS Temperature: Pulse: Respiratory Rate: Laboratory Tests 08/17/20 23:00: White Blood Count 7.6 Blood Pressure / Mean: Laboratory Tests 08/17/20 23:00: Creatinine 0.77, INR Comment 1.2, Platelet Count 336, Total Bilirubin 0.4 Results/Orders Lab Results Laboratory Tests Test 08/17/20 23:00 08/17/20 23:17 Range/Units White Blood Count 7.6 4.3-11.0 10^3/uL Red Blood Count 3.71 L 4.35-5.85 10^6/uL Hemoglobin 10.2 L 13.3-17.7 G/DL Hematocrit 31 L 40-54 % Mean Corpuscular Volume 83 80-99 FL Mean Corpuscular Hemoglobin 27 25-34 PG Mean Corpuscular Hemoglobin Concent 33 32-36 G/DL Red Cell Distribution Width 14.6 H 10.0-14.5 % Platelet Count 336 130-400 10^3/uL Mean Platelet Volume 8.6 7.4-10.4 FL Immature Granulocyte % (Auto) 0 % Neutrophils (%) (Auto) 74 42-75 % Lymphocytes (%) (Auto) 17 12-44 % Monocytes (%) (Auto) 8 0-12 % Eosinophils (%) (Auto) 1 0-10 % Basophils (%) (Auto) 0 0-10 % Neutrophils # (Auto) 5.6 1.8-7.8 X 10^3 Lymphocytes # (Auto) 1.3 1.0-4.0 X 10^3 Monocytes # (Auto) 0.6 0.0-1.0 X 10^3 Eosinophils # (Auto) 0.1 0.0-0.3 10^3/uL Basophils # (Auto) 0.0 0.0-0.1 10^3/uL Immature Granulocyte # (Auto) 0.0 0.0-0.1 10^3/uL Prothrombin Time 15.8 H 12.2-14.7 SEC INR Comment 1.2 0.8-1.4 Activated Partial Thromboplast Time 41 H 24-35 SEC Sodium Level 139 135-145 MMOL/L Potassium Level 4.1 3.6-5.0 MMOL/L Chloride Level 103 98-107 MMOL/L Carbon Dioxide Level 23 21-32 MMOL/L Anion Gap 13 5-14 MMOL/L Blood Urea Nitrogen 8 7-18 MG/DL Creatinine 0.77 0.60-1.30 MG/DL Estimat Glomerular Filtration Rate > 60 BUN/Creatinine Ratio 10 Glucose Level 118 H 70-105 MG/DL Calcium Level 9.3 8.5-10.1 MG/DL Corrected Calcium 9.2 8.5-10.1 MG/DL Total Bilirubin 0.4 0.1-1.0 MG/DL Aspartate Amino Transf (AST/SGOT) 17 5-34 U/L Alanine Aminotransferase (ALT/SGPT) 8 0-55 U/L Alkaline Phosphatase 56 40-136 U/L Troponin I < 0.30 <0.30 NG/ML Pro-B-Type Natriuretic Peptide 6123.0 H <75.0 PG/ML Total Protein 6.9 6.4-8.2 GM/DL Albumin 4.1 3.2-4.5 GM/DL Urine Color YELLOW Urine Clarity CLEAR Urine pH 7.5 5-9 Urine Specific [place] 1.010 L 1.016-1.022 Urine Protein NEGATIVE NEGATIVE Urine Glucose (UA) NEGATIVE NEGATIVE Urine Ketones NEGATIVE NEGATIVE Urine Nitrite NEGATIVE NEGATIVE Urine Bilirubin NEGATIVE NEGATIVE Urine Urobilinogen 0.2 < = 1.0 MG/DL Urine Leukocyte Esterase 1+ H NEGATIVE Urine RBC (Auto) TRACE-I NEGATIVE Urine RBC 2-5 H /HPF Urine WBC 50-100 H /HPF Urine Squamous Epithelial Cells 5-10 /HPF Urine Crystals NONE /LPF Urine Bacteria TRACE /HPF Urine Casts NONE /LPF Urine Mucus NEGATIVE /LPF Urine Culture Indicated YES My Orders Orders - SONIA HERNANDEZ MD Cbc With Automated Diff (08/17/20:42) Comprehensive Metabolic Panel (08/17/20:42) Troponin I Fs (08/17/20 23:42) Ekg Tracing (08/17/20:42) Chest 1 View Ap/Pa Only (08/17/20:42) Protime With Inr (08/17/20:42) Partial Thromboplastin Time (08/17/20:42) Probnp Fs (08/17/20:42) Blood Culture (08/17/20:) Lactic Acid Analyzer (08/17/20:) Ua Culture If Indicated (08/17/20:42) Coronavirus Sars-Cov-2 So 2018 (08/17/20 23:42) Levofloxacin 750 Mg/150 Ml Iv (Levaquin (08/17/20 23:45) Acetaminophen Tablet (Tylenol Tablet) (08/17/20 23:45) Albuterol/Ipra Inhalation Soln (Duoneb I (08/17/20 23:45) Svn Small Volume Nebulizer (08/17/20:42) Urine Culture (08/17/20 23:17) Furosemide Injection (Lasix Injection) (08/18/20 00:15) Aspirin Tablet (Aspirin Tablet) (08/18/20 00:15) Vital Signs/I&O Capillary Refill : Progress Note : Time: 00:29 Progress Note Elderly comorbid male who presents for evaluation of progressive shortness of breath over a week. Large workup is as above, concerning for elevated BNP and evidence of fluid overload on chest x-ray without focal infiltrate or consolid ation. Patient is also wheezing and heart failure exacerbation with superimposed COPD exacerbation is favored as the underlying primary process. Cannot exclude the possibility of COVID-19 infection and have swabbed the patient, though relatively low suspicion. Patient received Solu-Medrol in the EMS rig and he has received bronchodilators and a dose of levofloxacin after cultures (selected due to pattern of antibiotic allergies), as well as a full strength aspirin. Have initiated diuresis with 40 mg of IV Lasix. Have asked nursing to place a [place] as the patient straight catheterizes in order to urinate at baseline and will have great difficulty with this if we are diuresing with Lasix. Urinalysis does have some evidence of infection; favor colonization in this patient who chronically straight caths; have covered with levofloxacin in any event. Patient will require admission. We will proceed with admission to [facility] [place]; patient is graciously accepted for admission by Dr. Escoto. She requests that cardiology be consulted. Unable to reach Dr. Goodman at any of his listed telephone numbers after multiple attempts so I have asked the [place] warehouse supervisor to ensure that he is notified first thing in the morning of the need to consult on Mr. Dalton. Stable for transfer at this time. ECG EKG : Comment Sinus rhythm, rate 101, no acute ST elevation or depression, frequent PVCs, EP interpretation. Nonischemic tracing. Diagnostic Imaging Comments Some degree of congestive failure. No confluent infiltrates. No pneumothorax. EP interpretation; formal radiology read to follow. Departure Impression Primary Impression: Acute exacerbation of congestive heart failure Qualified Codes: I50.9 - Heart failure, unspecified Additional Impressions: COPD exacerbation Chest pain Qualified Codes: R07.89 - Other chest pain Acute cystitis Qualified Codes: N30.00 - Acute cystitis without hematuria Person under investigation for COVID-19 Disposition: 09 ADMITTED INPATIENT Condition: Stable Departure-Patient Inst. Referrals: LOUANN COREY MD (PCP/Family) Primary Care Physician SONIA HERNANDEZ MD Aug 17, 2020 23:41
[2020-08-17] MEDS ORDERED: RT-ALBUTEROL/IPRATROPIUM 3 ML (DUONEB) VIAL INH ONE (23:45)
[2020-08-17] MEDS ORDERED: ACETAMINOPHEN 500 MG TAB (TYLENOL) PO ONE (23:45)
[2020-08-17] MEDS ORDERED: LEVOFLOXACIN 750 MG/150 ML IV 150 ML IV ONE (23:45)
[2020-08-17 23:50] LABS: BASOPHILS % (AUTO) 0 % (0-10); EOSINOPHILS % (AUTO) 1 % (0-10); HEMATOCRIT 31 % (40-54); HEMOGLOBIN 10.2 G/DL (13.3-17.7); LYMPHOCYTES # (AUTO) 1.3 X 10^3 (1.0-4.0); LYMPHOCYTES % (AUTO) 17 % (12-44); MEAN CORPUSCULAR HEMOGLOBIN 27 PG (25-34); MEAN CORPUSCULAR HGB CONC 33 G/DL (32-36); MEAN CORPUSCULAR VOLUME 83 FL (80-99); MEAN PLATELET VOLUME 8.6 FL (7.4-10.4); MONOCYTES % (AUTO) 8 % (0-12); NEUTROPHILS # (AUTO) 5.6 X 10^3 (1.8-7.8); NEUTROPHILS % (AUTO) 74 % (42-75); PLATELET COUNT 336 10^3/uL (130-400); WHITE BLOOD COUNT 7.6 10^3/uL (4.3-11.0)
[2020-08-17 23:51] LABS: EOSINOPHILS # (AUTO) 0.1 10^3/uL (0.0-0.3); MONOCYTES # (AUTO) 0.6 X 10^3 (0.0-1.0)
[2020-08-17 23:52] LABS: CHLORIDE 103 MMOL/L (98-107); POTASSIUM 4.1 MMOL/L (3.6-5.0); SODIUM 139 MMOL/L (135-145)
[2020-08-17 23:53] LABS: ALANINE AMINOTRANSFERASE 8 U/L (0-55); ALBUMIN 4.1 GM/DL (3.2-4.5); ALKALINE PHOSPHATASE 56 U/L (40-136); BILIRUBIN,TOTAL 0.4 MG/DL (0.1-1.0); BUN/CREATININE RATIO 10; CALCIUM 9.3 MG/DL (8.5-10.1); CARBON DIOXIDE 23 MMOL/L (21-32); CREATININE SERUM 0.77 MG/DL (0.60-1.30); GFR ESTIMATED > 60; GLUCOSE 118 MG/DL (70-105); TOTAL PROTEIN 6.9 GM/DL (6.4-8.2)
[2020-08-17 23:54] LABS: BILIRUBIN,URINE NEGATIVE (NEGATIVE); CLARITY,URINE CLEAR; COLOR,URINE YELLOW; GLUCOSE, URINE (UA) NEGATIVE (NEGATIVE); KETONES,URINE NEGATIVE (NEGATIVE); LEUKOCYTE ESTERASE ,URINE 1+ (NEGATIVE); NITRITE,URINE NEGATIVE (NEGATIVE); PH,URINE 7.5 (5-9); PROTEIN,URINE NEGATIVE (NEGATIVE); WBC,URINE 50-100 /HPF
[2020-08-17 23:55] LABS: BACTERIA,URINE TRACE /HPF
[2020-08-18 00:01] LABS: INR 1.2 (0.8-1.4); PROTHROMBIN TIME PATIENT 15.8 SEC (12.2-14.7)
[2020-08-18] MEDS ORDERED: FUROSEMIDE 40 MG/4 ML INJ (LASIX) IVP ONE (00:15)
[2020-08-18] MEDS ORDERED: ASPIRIN 325 MG (5 GR) TABLET PO ONE (00:15)
[2020-08-18 02:50] VITALS: BP 134/80
[2020-08-18] MEDS ORDERED: ONDANSETRON 4 MG/2 ML (SDV) Z0FRAN IVP PRN (03:00)
[2020-08-18] MEDS ORDERED: morphine INJ 10 MG/ML 1ML (SYR OR VIAL) IVP PRN (03:00)
[2020-08-18 03:20] VITALS: BP 134/80
[2020-08-18] MEDS ORDERED: FUROSEMIDE 40 MG/4 ML INJ (LASIX) ONE (03:22)
[2020-08-18 04:02] LABS: ALBUMIN 3.8 GM/DL (3.2-4.5); CHLORIDE 103 MMOL/L (98-107); POTASSIUM 3.7 MMOL/L (3.6-5.0); SODIUM 138 MMOL/L (135-145)
[2020-08-18 04:04] LABS: GLUCOSE 158 MG/DL (70-105); TOTAL PROTEIN 6.7 GM/DL (6.4-8.2)
[2020-08-18 04:05] LABS: CARBON DIOXIDE 22 MMOL/L (21-32)
[2020-08-18 04:06] LABS: BILIRUBIN,TOTAL 0.5 MG/DL (0.1-1.0)
[2020-08-18 04:08] LABS: ALKALINE PHOSPHATASE 51 U/L (40-136); CREATININE SERUM 0.86 MG/DL (0.60-1.30); GFR ESTIMATED > 60
[2020-08-18 04:09] LABS: BUN/CREATININE RATIO 10
[2020-08-18 04:11] LABS: ALANINE AMINOTRANSFERASE 10 U/L (0-55)
[2020-08-18 04:16] LABS: BASOPHILS % (AUTO) 0 % (0-10); EOSINOPHILS % (AUTO) 0 % (0-10); HEMATOCRIT 29 % (40-54); HEMOGLOBIN 9.3 g/dL (13.3-17.7); LYMPHOCYTES # (AUTO) 0.2 10^3/uL (1.0-4.0); LYMPHOCYTES % (AUTO) 5 % (12-44); MEAN CORPUSCULAR HEMOGLOBIN 27 pg (25-34); MEAN CORPUSCULAR HGB CONC 32 g/dL (32-36); MEAN CORPUSCULAR VOLUME 85 fL (80-99); MEAN PLATELET VOLUME 8.8 fL (9.0-12.2); MONOCYTES % (AUTO) 1 % (0-12); NEUTROPHILS # (AUTO) 3.8 10^3/uL (1.8-7.8); NEUTROPHILS % (AUTO) 94 % (42-75); PLATELET COUNT 218 10^3/uL (130-400)
[2020-08-18] MEDS: methylPREDNISolone 125 MG (Solu-MEDROL) VIAL IVP SCH ×3 (04:46→22:42)
[2020-08-18] MEDS: FUROSEMIDE 40 MG/4 ML INJ (LASIX) IVP SCH ×2 (04:46→17:17)
[2020-08-18 04:56] LABS: HYPOCHROMASIA MODERATE; LYMPHOCYTES % (MANUAL) 5 %; MONOCYTES % (MANUAL) 1 %; NEUTROPHILS % (MANUAL) 94 %; POIKILOCYTOSIS SLIGHT
[2020-08-18 04:57] LABS: ANISOCYTOSIS SLIGHT
--- NOTE | 2020-08-18 06:36 | Diagnostic Imaging Report ---
INDICATION: Chest pain, shortness of air COMPARISON: 07/15/2020 TECHNIQUE: Single radiograph of the chest dated 08/17/2020. FINDINGS: Postsurgical changes of a CABG. The cardiac silhouette is mildly enlarged. Central pulmonary vascular congestion is present. Background chronic obstructive pulmonary disease is noted. Diffuse increase in prominence of the pulmonary interstitium is noted with Fatimah B lines bilaterally. Developing small bibasilar pleural effusions. No pneumothorax. No acute osseous abnormality. Osseous structures appear demineralized. IMPRESSION: Developing congestive heart failure with interstitial edema and small bibasilar pleural effusions. Background chronic obstructive pulmonary disease. Dictated by: Dictated on workstation # [id number]
--- NOTE | 2020-08-18 06:48 | History & Physical-Hospitalist ---
History of Present Illness HPI/Chief Complaint CC: Dyspnea with CHF and COPD exacerbations HPI: This is a very complicated 69yoWM with h/o seizure d/o, CAD, CHF and COPD who presents to the [facility] ER with dyspnea. No fever but he was swabbed for COVID and remains in isolation. PPE used during interview and exam. Seizure meds will be restarted. Cardiology was consulted. Patient denies pain. Source: patient Exam Limitations: clinical condition Date Seen 08/18/20 Time Seen by a Provider: 11:00 Attending Physician Kelly Hartman Pankaj K MD Referring Physician Date of Admission Aug 18, 2020 at 02:40 Home Medications & Allergies Home Medications Reviewed patient Home Medication Reconciliation performed by pharmacy medication reconciliations packaging technician and/or nursing. Patients Allergies have been reviewed. Allergies Allergies Coded Allergies Penicillins (Verified Allergy, Unknown, 04/22/17) diazepam (Unverified Allergy, Unknown, 03/07/17) doxycycline (Unverified Allergy, Unknown, RASH, 03/07/17) phenobarbital (Unverified Allergy, Unknown, 03/07/17) RELAXES ME TOO MUCH piperacillin (Unverified Allergy, Unknown, RASH, PT HAS RECEIVED CEFAZOLIN IN THE PAST W/O ISSUE, 03/08/17) sulfamethoxazole (Verified Allergy, Unknown, 04/22/17) terazosin (Unverified Allergy, Unknown, 03/07/17) CHEST PAIN Past Fgyccdg-Dpilly-Wqufbv Hx Past Med/Social Hx: Reviewed Nursing Past Med/Soc Hx, Reviewed and Corrections made Patient Social History Marrital Status: single Employed/Student: employed, retired Alcohol Use: Denies Use Recreational Drug Use: No Smoking Status: Current Everyday Smoker Type Used: Cigarettes 2nd Hand Smoke Exposure: Yes Recent Foreign Travel: No Contact w/other who traveled: No Recent Hopitalizations: Yes (Discharged 07/19/2020) Recent Infectious Disease Expo: No Immunizations Up To Date Tetanus Booster (TDap): Unknown Date of Pneumonia Vaccine: Nov 24, 2016 Date of Influenza Vaccine: Aug 08, 2012 Seasonal Allergies Seasonal Allergies: No Past Medical History Surgeries: Appendectomy, Cardiac, CABG, Coronary Stent, Gallbladder, Orthopedic, Penile Implant, Renal, Transurethral Resection Respiratory: COPD Currently Using CPAP: No Currently Using BIPAP: No Cardiac: Chronic Edema/Swelling, Coronary Artery Disease, High Cholesterol, Hypertension Neurological: Headaches /Migraines, Seizure Disorder Reproductive: Yes (ED--PENILE IMPLANT) Sexually Transmitted Disease: No HIV/AIDS: No Genitourinary: Benign Prostatic Hyperpl, Kidney Stones Gastrointestinal: Gastroesophageal Reflux, Ulcer Musculoskeletal: Arthritis Endocrine: Diabetes, Non-Insulin dep HEENT: Cataract, Glaucoma Loss of Vision: Denies Hearing Impairment: Hard of Hearing Psychosocial: Anxiety, Bipolar, Depression History of Blood Disorders: No Adverse Reaction to Blood Coffman: No Family History Reviewed Nursing Family Hx Patient reports no known family medical history. Review of Systems Constitutional: see HPI Respiratory: dyspnea on exertion, short of breath Physical Exam Physical Exam Vital Signs Vital Signs - First Documented 08/17/20 08/18/20 23:51 01:39 Temp 36.7 Pulse 110 Resp 20 B/P (MAP) 159/67 (97) Pulse Ox 96 O2 Delivery Room Air O2 Flow Rate 2.00 Capillary Refill : Less Than 3 Seconds Height, Weight, BMI Height: 5'5.00" Weight: 160lbs. 15.4oz. 73.505537pt; 27.60 BMI Method:Estimated General Appearance: No Apparent Distress, Anxious, Chronically ill, Other (tearful) Eyes: Right Eye Normal Inspection, Right Eye PERRL HEENT: PERRL/EOMI, Normal ENT Inspection, Pharynx Normal, Moist Mucous Membranes Neck: Full Range of Motion, Normal Inspection, Non Tender Respiratory: Chest Non Tender, Lungs Clear, No Accessory Muscle Use, No Respiratory Distress, Decreased Breath Sounds Cardiovascular: Regular Rate, Rhythm, No Edema, No Gallop, No JVD, No Murmur, Normal Peripheral Pulses Gastrointestinal: Normal Bowel Sounds, No Organomegaly, No Pulsatile Mass, Non Tender, Soft Back: Normal Inspection, No CVA Tenderness, No Vertebral Tenderness Extremity: Normal Capillary Refill, Normal Inspection, Normal Range of Motion, Non Tender, No Calf Tenderness, No Pedal Edema Neurologic/Psychiatric: Alert, Oriented x3, No Motor/Sensory Deficits, Normal Mood/Affect, Disoriented Skin: Normal Color, Warm/Dry Lymphatic: No Adenopathy Results Results/Procedures Labs Laboratory Tests 08/17/20 23:00 08/18/20 03:10 Patient resulted labs reviewed. Assessment/Plan Admission Diagnosis Assessment: AECHF AECOPD Seizure d/o Labile and tearful mood currently HTN Anemia of chronic disease Plan: IV diuresis O2 Supportive care Admission Status: Inpatient Order (span 2 midnights) Reason for Inpatient Admission: chf and copd Diagnosis/Problems Diagnosis/Problems (1) Acute exacerbation of congestive heart failure Status: Acute Qualifiers: Heart failure type: unspecified Qualified Codes: I50.9 - Heart failure, unspecified (2) Person under investigation for COVID-19 Status: Acute (3) COPD exacerbation Status: Acute (4) Chest pain Status: Acute Qualifiers: Chest pain type: other chest pain Qualified Codes: R07.89 - Other chest pain (5) Seizure disorder Status: Acute Clinical Quality Measures DVT/VTE Risk/Contraindication: Risk Factor Score Per Nursin RFS Level Per Nursing on Admit: 4+=Very High KELLY HARTMAN DO Aug 18, 2020 06:48
[2020-08-18] MEDS ORDERED: FLU QUAD HIGH DOSE 240 MCG/0.7 ML 2020-21 (FLUZONE) IM ONE (07:15)
[2020-08-18 07:31] VITALS: BP 161/79
[2020-08-18] MEDS ORDERED: morphine INJ 4 MG/ML 1 ML (VIAL/SYRINGE) IV PRN (07:45)
[2020-08-18] MEDS: RT-ALBUTEROL INHALER HFA (VENTOLIN HFA) 18 GM IH SCH ×5 (10:39→22:17)
[2020-08-18] MEDS ORDERED: ENOXAPARIN 100 MG/1 ML (LOVENOX) SYR SC SCH (11:30)
--- NOTE | 2020-08-18 11:32 | Consultation-Cardiology ---
HPI-Cardiology Cardiology Consultation Date of Consultation 08/18/20 Date of Admission Time Seen by Provider: 11:29 Indication: congestive heart failure HPI 69 years old gentleman with history of coronary artery disease, CABG, multiple stenting, hypertension hyperlipidemia. Severe COPD not on home oxygen and history of seizure disorder. Patient was brought to the emergency room for increasing shortness of breath with exertion started about a week ago which has been progressive. He denied any chest pain, has difficulty remembering the reason he is in the hospital for. No fever or chills. No palpitation or syncope. Home Medications & Allergies Allergies: Coded Allergies: Penicillins (Verified Allergy, Unknown, 04/22/17) diazepam (Unverified Allergy, Unknown, 03/07/17) doxycycline (Unverified Allergy, Unknown, RASH, 03/07/17) phenobarbital (Unverified Allergy, Unknown, 03/07/17) RELAXES ME TOO MUCH piperacillin (Unverified Allergy, Unknown, RASH, PT HAS RECEIVED CEFAZOLIN IN THE PAST W/O ISSUE, 03/08/17) sulfamethoxazole (Verified Allergy, Unknown, 04/22/17) terazosin (Unverified Allergy, Unknown, 03/07/17) CHEST PAIN Home Medication List Reviewed: Yes ABB-Zdgxmi-Rpcwuy Hx Patient Social History Alcohol Use: Denies Use Recreational Drug Use: No Type Used: Cigarettes 2nd Hand Smoke Exposure: Yes Recent Foreign Travel: No Recent Infectious Disease Expo: No Recent Hopitalizations: Yes (Discharged 07/19/2020) Immunizations Up To Date Tetanus Booster (TDap): Unknown Date of Pneumonia Vaccine: Nov 24, 2016 Date of Influenza Vaccine: Aug 08, 2012 Past Medical History Discussed below Family Medical History Family Medical Hx Noncontributory Family History: Patient reports no known family medical history. Review of Systems-General Review of Systems Constitutional: see HPI EENTM: see HPI, no symptoms reported Respiratory: see HPI, cough, dyspnea on exertion; No hemoptysis, No orthopnea, No phlegm; short of breath; No stridor, No wheezing, No other Cardiovascular: see HPI; No chest pain; edema; No Hx of Intervention, No palpitations, No syncope, No vascular heart diseas, No other Gastrointestinal: no symptoms reported, see HPI Genitourinary: no symptoms reported, see HPI Musculoskeletal: no symptoms reported, see HPI Skin: no symptoms reported, see HPI Psychiatric/Neurological: No Symptoms Reported, See HPI All Other Systems Reviewed Negative Unless Noted: Yes (Negative excepted noted.) Reviewed Test Results Reviewed Test Results Lab Laboratory Tests Test 08/17/20 23:00 08/17/20 23:17 08/18/20 00:25 08/18/20 03:10 Range/Units White Blood Count 7.6 4.0 L 4.3-11.0 10^3/uL Red Blood Count 3.71 L 3.43 L 4.30-5.52 10^6/uL Hemoglobin 10.2 L 9.3 L 13.3-17.7 g/dL Hematocrit 31 L 29 L 40-54 % Mean Corpuscular Volume 83 85 80-99 fL Mean Corpuscular Hemoglobin 27 27 25-34 pg Mean Corpuscular Hemoglobin Concent 33 32 32-36 g/dL Red Cell Distribution Width 14.6 H 14.4 10.0-14.5 % Platelet Count 336 218 130-400 10^3/uL Mean Platelet Volume 8.6 8.8 L 9.0-12.2 fL Immature Granulocyte % (Auto) 0 0 % Neutrophils (%) (Auto) 74 94 H 42-75 % Lymphocytes (%) (Auto) 17 5 L 12-44 % Monocytes (%) (Auto) 8 1 0-12 % Eosinophils (%) (Auto) 1 0 0-10 % Basophils (%) (Auto) 0 0 0-10 % Neutrophils # (Auto) 5.6 3.8 1.8-7.8 10^3/uL Lymphocytes # (Auto) 1.3 0.2 L 1.0-4.0 10^3/uL Monocytes # (Auto) 0.6 0.0 0.0-1.0 10^3/uL Eosinophils # (Auto) 0.1 0.0 0.0-0.3 10^3/uL Basophils # (Auto) 0.0 0.0 0.0-0.1 10^3/uL Immature Granulocyte # (Auto) 0.0 0.0 0.0-0.1 10^3/uL Prothrombin Time 15.8 H 12.2-14.7 SEC INR Comment 1.2 0.8-1.4 Activated Partial Thromboplast Time 41 H 24-35 SEC Sodium Level 139 138 135-145 MMOL/L Potassium Level 4.1 3.7 3.6-5.0 MMOL/L Chloride Level 103 103 98-107 MMOL/L Carbon Dioxide Level 23 22 21-32 MMOL/L Anion Gap 13 13 5-14 MMOL/L Blood Urea Nitrogen 8 9 7-18 MG/DL Creatinine 0.77 0.86 0.60-1.30 MG/DL Estimat Glomerular Filtration Rate > 60 > 60 BUN/Creatinine Ratio 10 10 Glucose Level 118 H 158 H 70-105 MG/DL Calcium Level 9.3 9.0 8.5-10.1 MG/DL Corrected Calcium 9.2 9.2 8.5-10.1 MG/DL Total Bilirubin 0.4 0.5 0.1-1.0 MG/DL Aspartate Amino Transf (AST/SGOT) 17 19 5-34 U/L Alanine Aminotransferase (ALT/SGPT) 8 10 0-55 U/L Alkaline Phosphatase 56 51 40-136 U/L Troponin I < 0.30 < 0.028 <0.028 NG/ML Pro-B-Type Natriuretic Peptide 6123.0 H <75.0 PG/ML Total Protein 6.9 6.7 6.4-8.2 GM/DL Albumin 4.1 3.8 3.2-4.5 GM/DL Urine Color YELLOW Urine Clarity CLEAR Urine pH 7.5 5-9 Urine Specific [place] 1.010 L 1.016-1.022 Urine Protein NEGATIVE NEGATIVE Urine Glucose (UA) NEGATIVE NEGATIVE Urine Ketones NEGATIVE NEGATIVE Urine Nitrite NEGATIVE NEGATIVE Urine Bilirubin NEGATIVE NEGATIVE Urine Urobilinogen 0.2 < = 1.0 MG/DL Urine Leukocyte Esterase 1+ H NEGATIVE Urine RBC (Auto) TRACE-I NEGATIVE Urine RBC 2-5 H /HPF Urine WBC 50-100 H /HPF Urine Squamous Epithelial Cells 5-10 /HPF Urine Crystals NONE /LPF Urine Bacteria TRACE /HPF Urine Casts NONE /LPF Urine Mucus NEGATIVE /LPF Urine Culture Indicated YES Lactic Acid Level 0.56 0.50-2.00 MMOL/L Neutrophils % (Manual) 94 % Lymphocytes % (Manual) 5 % Monocytes % (Manual) 1 % Hypochromasia MODERATE Poikilocytosis SLIGHT Basophilic Stippling Anisocytosis SLIGHT Test 08/18/20 03:20 08/18/20 09:15 Range/Units B-Type Natriuretic Peptide 1065.6 H <100.0 PG/ML Troponin I < 0.028 <0.028 NG/ML Physical Exam Physical Exam Vital Signs Vital Signs - First Documented 08/17/20 08/18/20 23:51 01:39 Temp 36.7 Pulse 110 Resp 20 B/P (MAP) 159/67 (97) Pulse Ox 96 O2 Delivery Room Air O2 Flow Rate 2.00 Capillary Refill : Less Than 3 Seconds Height, Weight, BMI Height: 5'5.00" Weight: 160lbs. 15.4oz. 73.485928au; 27.60 BMI Method:Estimated General Appearance: No Apparent Distress, WD/WN Eyes: Bilateral Eye Normal Inspection, Bilateral Eye PERRL, Bilateral Eye EOMI HEENT: PERRL/EOMI, TMs Normal, Normal ENT Inspection, Pharynx Normal, Moist Mucous Membranes Neck: Full Range of Motion, Normal Inspection, Non Tender, Supple, Carotid Bruit Respiratory: Chest Non Tender, Normal Breath Sounds, No Accessory Muscle Use, No Respiratory Distress Cardiovascular: Regular Rate, Rhythm, No Edema, No Gallop, No JVD, No Murmur, Normal Peripheral Pulses Gastrointestinal: Normal Bowel Sounds, No Organomegaly, No Pulsatile Mass, Non Tender, Soft Back: Normal Inspection, No CVA Tenderness, No Vertebral Tenderness Extremity: Normal Capillary Refill, Normal Inspection, Normal Range of Motion, Non Tender, No Calf Tenderness, No Pedal Edema Neurologic/Psychiatric: Alert, Oriented x3, No Motor/Sensory Deficits, Normal Mood/Affect Skin: Normal Color, Warm/Dry Lymphatic: No Adenopathy A/P-Cardiology Admission Diagnosis Congestive heart failure Coronary artery disease Hypertension Hyperlipidemia Assessment/Plan Congestive heart failure, new onset, deteriorating shortness of breath over the past week. Started on IV Lasix. 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 Denied any active chest pain LVEF 55-60% and mild MR on echo of 07/23/17, planning to repeat 2-D echo once patient is off isolation Hyperlipidemia, maintained on statin. Continue to monitor lipids Hypertension, continue on current medication monitor blood pressure COPD, managed by primary care physician Diabetes mellitus, followed and managed by primary care physician History of seizure disorder History of neurogenic bladder Clinical Quality Measures DVT/VTE Risk/Contraindication: Risk Factor Score Per Nursin RFS Level Per Nursing on Admit: 4+=Very High MANE VARGAS MD Aug 18, 2020 11:32
[2020-08-18 12:30] VITALS: BP 145/81
[2020-08-18] MEDS ORDERED: LAMO25TA8 PO (12:35)
[2020-08-18] MEDS ORDERED: LEVE500T6 PO (12:37)
[2020-08-18] MEDS ORDERED: METF-398 PO (12:39)
[2020-08-18] MEDS ORDERED: CLOPIDOGREL 75 MG (PLAVIX) TABLET ONE (12:40)
[2020-08-18] MEDS ORDERED: ISOSORBIDE MONONITRATE 30 MG (IMDUR) TAB PO ONE (12:41)
[2020-08-18] MEDS ORDERED: ASPIRIN E.C. 81 MG (ECOTRIN) TAB PO ONE (12:41)
[2020-08-18] MEDS ORDERED: lamoTRIgine 25 MG (LaMICtal) TAB PO SCH (12:45)
[2020-08-18] MEDS ORDERED: CATHETER FLUSH 10 ML SYR IV PRN (13:00)
[2020-08-18] MEDS: ENOXAPARIN 80 MG/0.8 ML (LOVENOX) SYR SC SCH ×2 (13:00→22:42)
[2020-08-18] MEDS: LEVETIRACETAM 500 MG (KEPPRA) TAB PO SCH ×2 (13:01→21:28)
[2020-08-18] MEDS: ISOSORBIDE MONONITRATE 30 MG (IMDUR) TAB PO SCH (13:01)
[2020-08-18] MEDS: ASPIRIN E.C. 81 MG (ECOTRIN) TAB PO SCH (13:01)
[2020-08-18] MEDS: CLOPIDOGREL 75 MG (PLAVIX) TABLET PO SCH (13:01)
[2020-08-18] MEDS: CATHETER FLUSH 10 ML SYR IV SCH ×2 (13:33→22:45)
[2020-08-18 17:18] VITALS: BP 147/68
[2020-08-18 19:55] VITALS: BP 131/78
[2020-08-18] MEDS: FENOFIBRATE 134 MG (LOFIBRA) CAPSULE PO SCH (21:29)
[2020-08-18] MEDS: eZETimibe 10 MG (ZETIA) TABLET PO SCH (21:29)
[2020-08-18] MEDS: MIRTAZAPINE 15 MG (REMERON) TAB PO SCH (21:29)
[2020-08-19 00:06] VITALS: BP 147/68
[2020-08-19] MEDS ORDERED: LEVOFLOXACIN 750 MG/D5W 150 ML PRE-MIX IV SCH (01:00)
[2020-08-19] MEDS: RT-ALBUTEROL INHALER HFA (VENTOLIN HFA) 18 GM IH SCH ×6 (03:36→22:40)
[2020-08-19 04:14] VITALS: BP 136/72
[2020-08-19 04:17] LABS: BASOPHILS % (AUTO) 0 % (0-10); EOSINOPHILS % (AUTO) 0 % (0-10); HEMATOCRIT 28 % (40-54); HEMOGLOBIN 9.1 g/dL (13.3-17.7); LYMPHOCYTES # (AUTO) 0.3 10^3/uL (1.0-4.0); LYMPHOCYTES % (AUTO) 5 % (12-44); MEAN CORPUSCULAR HEMOGLOBIN 27 pg (25-34); MEAN CORPUSCULAR HGB CONC 32 g/dL (32-36); MEAN CORPUSCULAR VOLUME 83 fL (80-99); MEAN PLATELET VOLUME 8.9 fL (9.0-12.2); MONOCYTES # (AUTO) 0.2 10^3/uL (0.0-1.0); MONOCYTES % (AUTO) 3 % (0-12); NEUTROPHILS # (AUTO) 5.6 10^3/uL (1.8-7.8); NEUTROPHILS % (AUTO) 92 % (42-75); PLATELET COUNT 264 10^3/uL (130-400); WHITE BLOOD COUNT 6.1 10^3/uL (4.3-11.0)
[2020-08-19 06:23] LABS: ALANINE AMINOTRANSFERASE 8 U/L (0-55); ALBUMIN 3.9 GM/DL (3.2-4.5); ALKALINE PHOSPHATASE 45 U/L (40-136); BILIRUBIN,TOTAL 0.5 MG/DL (0.1-1.0); BUN/CREATININE RATIO 23; CALCIUM 9.2 MG/DL (8.5-10.1); CARBON DIOXIDE 26 MMOL/L (21-32); CHLORIDE 98 MMOL/L (98-107); CREATININE SERUM 0.96 MG/DL (0.60-1.30); GFR ESTIMATED > 60; GLUCOSE 157 MG/DL (70-105); POTASSIUM 3.6 MMOL/L (3.6-5.0); SODIUM 137 MMOL/L (135-145); TOTAL PROTEIN 6.6 GM/DL (6.4-8.2)
[2020-08-19] MEDS: FUROSEMIDE 40 MG/4 ML INJ (LASIX) IVP SCH ×2 (06:28→16:34)
[2020-08-19] MEDS: CATHETER FLUSH 10 ML SYR IV SCH ×3 (06:28→22:09)
[2020-08-19] MEDS: methylPREDNISolone 125 MG (Solu-MEDROL) VIAL IVP SCH ×2 (06:28→13:41)
--- NOTE | 2020-08-19 09:55 | Progress Note - Cardiology ---
Cardiology SOAP Progress Note Subjective: Lying in bed. States he feels much better today. No c/o CP, palpitations, syncope or near syncope. Reports he wants to go home. Feels breathing is better than before. Objective: I&O/Vital Signs 08/19/20 08/19/20 08/19/20 08/19/20 04:00 04:14 06:36 07:56 Temp 36.3 Pulse 93 86 Resp 18 B/P (MAP) 136/72 (93) Pulse Ox 95 95 O2 Delivery Nasal Cannula Room Air Room Air O2 Flow Rate 2.00 08/19/20 08/19/20 08/19/20 08/19/20 08:00 09:42 12:04 12:47 Temp 36.4 Pulse 90 94 Resp 17 B/P (MAP) 129/64 (85) Pulse Ox 95 94 O2 Delivery Room Air Room Air Room Air 08/19/20 00:00 Intake Total 600 ml Output Total 5520 ml Balance -4920 ml Weight (Pounds): 160 Weight (Ounces): 15.4 Weight (Calculated Kilograms): 73.129836 Constitutional: AAO x 3, well-developed, well-nourished Respiratory: No accessory muscle use; chest expansion is symmetric, chest is bilaterally symmetric Cardiovascular: regular rate-rhythm Gastrointestional: No tender; soft, round, audible bowel sounds Extremities: no lower extremity edema bilateral Neurologic/Psychiatric: grossly intact (moves all extremities) Skin: No rash on exposed areas, No ulcerations on exposed areas Results/Procedures: Labs Laboratory Tests 08/18/20 15:09: Troponin I < 0.028 08/19/20 03:52: White Blood Count 6.1, Red Blood Count 3.41L, Hemoglobin 9.1L, Hematocrit 28L, Mean Corpuscular Volume 83, Mean Corpuscular Hemoglobin 27, Mean Corpuscular Hemoglobin Concent 32, Red Cell Distribution Width 14.1, Platelet Count 264, Mean Platelet Volume 8.9L, Immature Granulocyte % (Auto) 1, Neutrophils (%) (Auto) 92H, Lymphocytes (%) (Auto) 5L, Monocytes (%) (Auto) 3, Eosinophils (%) (Auto) 0, Basophils (%) (Auto) 0, Neutrophils # (Auto) 5.6, Lymphocytes # (Auto) 0.3L, Monocytes # (Auto) 0.2, Eosinophils # (Auto) 0.0, Basophils # (Auto) 0.0, Immature Granulocyte # (Auto) 0.0, Sodium Level 137, Potassium Level 3.6, Chloride Level 98, Carbon Dioxide Level 26, Anion Gap 13, Blood Urea Nitrogen 22H, Creatinine 0.96, Estimat Glomerular Filtration Rate > 60, BUN/Creatinine Ratio 23, Glucose Level 157H, Calcium Level 9.2, Corrected Calcium 9.3, Total Bilirubin 0.5, Aspartate Amino Transf (AST/SGOT) 15, Alanine Aminotransferase (ALT/SGPT) 8, Alkaline Phosphatase 45, Total Protein 6.6, Albumin 3.9 Laboratory Tests 08/17/20 23:00 08/18/20 03:10 08/19/20 03:52 A/P: Assessment: Congestive heart failure, new onset No evidence of acute coronary syndrome Anemia of undetermined etiology, managed by the Medical service COVID-19 PUI, testing results are pending Urinary tract infection, managed by primary care physician Coronary artery disease, H/o CABG in 2004 at [facility]; several stents post CABG, most recently in 2011 per pt report (he reports 17 stents) 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 LVEF 55-60% and mild MR on echo of 07/23/17 Hyperlipidemia Hypertension COPD Diabetes mellitus History of seizure disorder History of neurogenic bladder Plan: Continue diuretics to treat decompensated heart failure Echo to eval if CHF systolic or diastolic. If systolic, then add bb and JOSE- inhib Request records from [facility] Monitor lab Replace electrolytes as indicated Physician Assessment Physician Assessment Neela Mead APRN, and I mutually evaluated the patient I have updated the note with my recommendations that are noted in italics above NEELA MEAD MEDIA RECONCILIATION SPECIALIST Aug 19, 2020 09:55 CODY HOPPER MD [facility] Aug 19, 2020 14:53
[2020-08-19] MEDS: ASPIRIN E.C. 81 MG (ECOTRIN) TAB PO SCH (10:42)
[2020-08-19] MEDS: ISOSORBIDE MONONITRATE 30 MG (IMDUR) TAB PO SCH (10:42)
[2020-08-19] MEDS: CLOPIDOGREL 75 MG (PLAVIX) TABLET PO SCH (10:42)
[2020-08-19] MEDS: LEVETIRACETAM 500 MG (KEPPRA) TAB PO SCH ×2 (10:42→20:32)
[2020-08-19] MEDS: ENOXAPARIN 80 MG/0.8 ML (LOVENOX) SYR SC SCH ×2 (10:43→22:30)
[2020-08-19 12:04] VITALS: BP 129/64
--- NOTE | 2020-08-19 15:34 | NUR ---
"RD ASSESSMENT PMHx: CAD; COPD; CHF; HTN; GERD; DM; hypercholesterolemia; PT INTERACTION: Note pt is currently in COVID isolation, per chart review. Note all information gathered for nutrition assessment is per chart review. Note avg PO intake 33% x1d. Note no BM has been recorded, and pt not currently on bowel regimen. Note recent 26# wt loss x1mon. Note unable to determine current level of DM management, and unable to determine recent HbA1c. ABNORMAL NUTRITION-RELATED LAB VALUES LOW: HIGH: BUN 22; glu 157 Est. kcal needs: 1450 kcal | 20 kcal/kg Est. Pro needs: 73 g Pro | 1.0 g Pro/kg PES STATEMENT: Inadequate oral intake (NI-2.1) related to loss of appetite as evidenced by chart review | avg PO intake 33% x1d INTERVENTION: Continue with current diet order of Heart Healthy diet. Pt may benefit from consistent CHO restriction if blood glucose levels become elevated. Add Glucerna (vary) to meals TID, for increased kcal intake. Provides 220 kcal and 10 g Pro per serving. Will continue to follow and reassess as pt needs, intake, and status change. Mahsa Camacho, MS RD LD"
[2020-08-19 15:55] VITALS: BP 132/83
[2020-08-19] MEDS ORDERED: BTH10T PO (17:47)
[2020-08-19] MEDS ORDERED: FLUO20CA46 PO (17:47)
[2020-08-19] MEDS ORDERED: RAMI5CAP65 PO (17:47)
[2020-08-19] MEDS ORDERED: FAMO20TA3 PO (17:47)
[2020-08-19] MEDS ORDERED: OLAN5TAB25 PO (17:47)
[2020-08-19 19:20] VITALS: BP 144/79
--- NOTE | 2020-08-19 19:36 | Progress Note ---
Subjective Subjective/Events-last exam Pt reports his breathing doesn't feel great, but he is on room air today. He is hopeful to go home soon. Focused Exam Lactate Level 08/18/20 00:25: Lactic Acid Level 0.56 Objective Exam Last Set of Vital Signs Vital Signs Date Time Temp Pulse Resp B/P (MAP) Pulse Ox O2 Delivery O2 Flow Rate FiO2 08/19/20 18:54 97 Room Air 08/19/20 16:00 2.00 08/19/20 15:55 36.1 87 19 132/83 (99) Capillary Refill : Less Than 3 Seconds I&O Intake and Output 08/19/20 00:00 Intake Total 900 ml Output Total 6570 ml Balance -5670 ml Intake Oral 750 ml IV Total 150 ml Output Urine Total 6570 ml Daily Weight Change No No General: Alert, No Acute Distress Lungs: Normal Air Movement, Other (faint inspiratory wheezing) Heart: Regular Rate, No Murmurs Abdomen: Normal Bowel Sounds, Soft Extremities: No Edema Psych/Mental Status: Mood NL Results/Procedures Lab Laboratory Tests 08/19/20 03:52: White Blood Count 6.1, Red Blood Count 3.41L, Hemoglobin 9.1L, Hematocrit 28L, Mean Corpuscular Volume 83, Mean Corpuscular Hemoglobin 27, Mean Corpuscular Hemoglobin Concent 32, Red Cell Distribution Width 14.1, Platelet Count 264, Mean Platelet Volume 8.9L, Immature Granulocyte % (Auto) 1, Neutrophils (%) (Auto) 92H, Lymphocytes (%) (Auto) 5L, Monocytes (%) (Auto) 3, Eosinophils (%) (Auto) 0, Basophils (%) (Auto) 0, Neutrophils # (Auto) 5.6, Lymphocytes # (Auto) 0.3L, Monocytes # (Auto) 0.2, Eosinophils # (Auto) 0.0, Basophils # (Auto) 0.0, Immature Granulocyte # (Auto) 0.0, Sodium Level 137, Potassium Level 3.6, Chloride Level 98, Carbon Dioxide Level 26, Anion Gap 13, Blood Urea Nitrogen 22H, Creatinine 0.96, Estimat Glomerular Filtration Rate > 60, BUN/Creatinine Ratio 23, Glucose Level 157H, Calcium Level 9.2, Corrected Calcium 9.3, Total Bilirubin 0.5, Aspartate Amino Transf (AST/SGOT) 15, Alanine Aminotransferase (ALT/SGPT) 8, Alkaline Phosphatase 45, Total Protein 6.6, Albumin 3.9 Microbiology 08/18/20 Blood Culture - Preliminary, Resulted Bacillus species Assessment/Plan Assessment/Plan (1) Chest pain Status: Acute Assessment & Plan: Cardiology consulted, echo pending. Troponin normal. Qualifiers: Qualified Codes: R07.89 - Other chest pain (2) Elevated brain natriuretic peptide (BNP) level Status: Acute Assessment & Plan: Reviewed clinic chart and echo at [facility] in summer 2018 did not show dysfunction. Echo pending. IV lasix BID per Cardiology. (3) COPD exacerbation Status: Acute Assessment & Plan: Received IV solumedrol initially, will transition to oral prednisone given now on room air. Continue albuterol. (4) Pyuria Status: Acute Assessment & Plan: Uses intermittent cath at home and has only few bacteria in UA, will await culture. (5) Urinary retention Status: Chronic Assessment & Plan: Uses intermittent cath at home. Currently has sanchez in. Continue home bethanechol, tamsulosin. (6) COPD (chronic obstructive pulmonary disease) Status: Chronic Assessment & Plan: Resume home fluticasone. Qualifiers: Qualified Codes: J41.0 - Simple chronic bronchitis (7) Coronary artery disease Status: Chronic Assessment & Plan: Continue home Plavix, ezetemibe, fenofibrate, simvastatin. Qualifiers: (8) Hyperlipidemia Status: Chronic Assessment & Plan: Resume home simvastatin, ezetemibe and fenofibrate. (9) Hypertension Status: Chronic Assessment & Plan: Resume home rampiril Qualifiers: Qualified Codes: I10 - Essential (primary) hypertension (10) Seizure disorder Status: Chronic Assessment & Plan: Resume home lamotrigine, Keppra, gabapentin, lorazepam. (11) Depression Status: Chronic Assessment & Plan: Continue home fluoxetine. (12) Diabetes mellitus Status: Chronic Assessment & Plan: Hold home metformin and pioglitazone- depending on echo results, may need to d/c pioglitazone. Diabetic diet and sliding scale insulin. Qualifiers: Qualified Codes: E11.69 - Type 2 diabetes mellitus with other specified com plication (13) Bipolar disorder Status: Chronic Assessment & Plan: Resume home olanzepine (14) Glaucoma Status: Chronic Assessment & Plan: Home eye drops (15) Person under investigation for COVID-19 Status: Acute Assessment & Plan: Results still pending. (16) Chronic pain Status: Chronic Assessment & Plan: Resume home oxycontin and oxycodone. Qualifiers: Qualified Codes: G89.4 - Chronic pain syndrome (17) DVT prophylaxis Status: Acute Assessment & Plan: On therapeutic enoxaparin Clinical Quality Measures DVT/VTE Risk/Contraindication: Risk Factor Score Per Nursin RFS Level Per Nursing on Admit: 4+=Very High PHI ALVARADO MD Aug 19, 2020 19:36
[2020-08-19] MEDS ORDERED: oxyCODONE/APAP 10/325MG (PERCOCET 10) TABLET PO PRN (19:45)
[2020-08-19] MEDS ORDERED: TEMAZEPAM 7.5 MG CAP (RESTORIL) PO PRN (19:45)
[2020-08-19] MEDS: eZETimibe 10 MG (ZETIA) TABLET PO SCH ×2 (20:32→22:09)
[2020-08-19] MEDS: FENOFIBRATE 134 MG (LOFIBRA) CAPSULE PO SCH (20:32)
[2020-08-19] MEDS: MIRTAZAPINE 15 MG (REMERON) TAB PO SCH (20:33)
[2020-08-19] MEDS ORDERED: traZODone 50 MG (DESYREL) TAB PO SCH (21:00)
[2020-08-19] MEDS ORDERED: GABAPENTIN 300 MG (NEURONTIN) CAP PO SCH (21:00)
[2020-08-19] MEDS ORDERED: TIMOLOL OU SCH (21:00)
[2020-08-19] MEDS ORDERED: OLANZapine 5 MG (ZyPREXA) TAB PO SCH (21:00)
[2020-08-19] MEDS ORDERED: TAMSULOSIN 0.4 MG (FLOMAX) CAP PO SCH (21:00)
[2020-08-19] MEDS ORDERED: FAMOTIDINE 20 MG (PEPCID) TABLET PO SCH (21:00)
[2020-08-19] MEDS: oxyCODONE ER 20 MG (OxyCONTIN CR) TAB PO SCH (22:09)
[2020-08-19] MEDS: LORazepam 1 MG (ATIVAN) TAB PO SCH (22:09)
[2020-08-19] MEDS: BETHANECHOL 10 MG (URECHOLINE) TAB PO SCH (22:10)
[2020-08-20] VITALS (7 sets, daily range): BP systolic 97–156; BP diastolic 51–65
[2020-08-20] MEDS: RT-ALBUTEROL INHALER HFA (VENTOLIN HFA) 18 GM IH SCH ×4 (03:18→15:17)
[2020-08-20 04:14] LABS: HEMOGLOBIN 8.1 g/dL (13.3-17.7); WHITE BLOOD COUNT 6.8 10^3/uL (4.3-11.0)
[2020-08-20 04:19] LABS: CHLORIDE 95 MMOL/L (98-107); POTASSIUM 3.1 MMOL/L (3.6-5.0); SODIUM 136 MMOL/L (135-145)
[2020-08-20 04:20] LABS: CALCIUM 8.7 MG/DL (8.5-10.1)
[2020-08-20 04:21] LABS: GLUCOSE 122 MG/DL (70-105)
[2020-08-20 04:22] LABS: CARBON DIOXIDE 29 MMOL/L (21-32)
[2020-08-20 04:25] LABS: CREATININE SERUM 1.18 MG/DL (0.60-1.30); GFR ESTIMATED > 60
[2020-08-20 04:26] LABS: BUN/CREATININE RATIO 34
[2020-08-20 04:27] LABS: MAGNESIUM 1.6 MG/DL (1.6-2.4)
[2020-08-20] MEDS: FLUTICASONE 110 MCG INHALER (FLOVENT) 12 GM INH SCH ×2 (06:44→15:17)
[2020-08-20] MEDS ORDERED: predniSONE 20 MG TAB PO SCH (07:00)
[2020-08-20] MEDS ORDERED: KCL 20 MEQ TAB (K-DUR) PO NR (07:45)
[2020-08-20] MEDS: CATHETER FLUSH 10 ML SYR IV SCH ×2 (07:52→14:32)
[2020-08-20] MEDS: LORazepam 1 MG (ATIVAN) TAB PO SCH (08:54)
[2020-08-20] MEDS: ASPIRIN E.C. 81 MG (ECOTRIN) TAB PO SCH (08:54)
[2020-08-20] MEDS: BETHANECHOL 10 MG (URECHOLINE) TAB PO SCH (08:55)
[2020-08-20] MEDS: oxyCODONE ER 20 MG (OxyCONTIN CR) TAB PO SCH (08:55)
[2020-08-20] MEDS: ISOSORBIDE MONONITRATE 30 MG (IMDUR) TAB PO SCH (08:55)
[2020-08-20] MEDS: LEVETIRACETAM 500 MG (KEPPRA) TAB PO SCH (08:55)
[2020-08-20] MEDS: CLOPIDOGREL 75 MG (PLAVIX) TABLET PO SCH (08:55)
[2020-08-20] MEDS: FUROSEMIDE 40 MG/4 ML INJ (LASIX) IVP SCH (08:56)
[2020-08-20] MEDS ORDERED: RAMIPRIL 5 MG (ALTACE) CAP PO SCH (09:00)
[2020-08-20] MEDS ORDERED: FLUoxetine HCL 20 MG (PROzac) CAP PO SCH (09:00)
--- NOTE | 2020-08-20 11:04 | Progress Note - Cardiology ---
Cardiology SOAP Progress Note Subjective: Denies shortness of breath or cp or palp or syncope Denies n/v/d Some gen weakness Denies focal weakness Objective: I&O/Vital Signs 08/20/20 08/20/20 08/20/20 08/20/20 00:00 00:00 01:00 04:00 Temp 36.8 36.2 Pulse 66 88 75 Resp 18 19 B/P (MAP) 156/64 (94) 115/65 (82) Pulse Ox 96 96 O2 Delivery Room Air Room Air Room Air O2 Flow Rate 0.00 08/20/20 08/20/20 08/20/20 08/20/20 04:00 06:36 06:44 07:47 Temp 37.0 Pulse 66 69 Resp 19 B/P (MAP) 104/51 (68) Pulse Ox 95 92 O2 Delivery Room Air Room Air Room Air O2 Flow Rate 0.00 08/20/20 08/20/20 08/20/20 08:00 08:50 09:00 B/P (MAP) 114/55 (74) O2 Delivery Room Air Room Air 08/20/20 00:00 Intake Total 1120 ml Output Total 2200 ml Balance -1080 ml Weight (Pounds): 160 Weight (Ounces): 15.4 Weight (Calculated Kilograms): 73.226277 Constitutional: AAO x 3, well-developed, well-nourished Respiratory: No accessory muscle use; chest expansion is symmetric, chest is bilaterally symmetric Cardiovascular: regular rate-rhythm Gastrointestional: No tender; soft, round, audible bowel sounds Extremities: no lower extremity edema bilateral Neurologic/Psychiatric: grossly intact (moves all extremities) Skin: No rash on exposed areas, No ulcerations on exposed areas Results/Procedures: Labs Laboratory Tests 08/20/20 03:45: White Blood Count 6.8, Red Blood Count 3.02L, Hemoglobin 8.1L, Hematocrit 25L, Mean Corpuscular Volume 83, Mean Corpuscular Hemoglobin 27, Mean Corpuscular Hemoglobin Concent 32, Red Cell Distribution Width 14.1, Platelet Count 287, Mean Platelet Volume 9.0, Sodium Level 136, Potassium Level 3.1L, Chloride Level 95L, Carbon Dioxide Level 29, Anion Gap 12, Blood Urea Nitrogen 40H, Creatinine 1.18, Estimat Glomerular Filtration Rate > 60, BUN/Creatinine Ratio 34, Glucose Level 122H, Calcium Level 8.7, Magnesium Level 1.6 Microbiology 08/18/20 Blood Culture - Preliminary, Resulted Bacillus species 08/17/20 Urine Culture - Final, Complete Mixed Bacterial Na Laboratory Tests 08/19/20 03:52 08/20/20 03:45 A/P: Assessment: Ac diastolic CHF. Echo of 08/20/20: LVEF 60-65%, mild dilated left atrium, mild MAC, AoV sclerosis without stenosis, mild AI, normal PASP No evidence of acute coronary syndrome Anemia of undetermined etiology, managed by the Medical service COVID-19 negative Urinary tract infection, managed by primary care physician Coronary artery disease, H/o CABG in 2004 at [facility]; several stents post CABG, most recently in 2011 per pt report (he reports 17 st[address]) Dr. Oconnor is his primary in school suspension coordinator, has been following with him. Hyperlipidemia Hypertension COPD Diabetes mellitus History of seizure disorder History of neurogenic bladder Plan: Change diuretics to oral Replenish K Continue other meds Monitor labs Ok to d/c from cardiac standpoint if does well on oral meds. We advise close outpt f/u, including f/u on labs CODY HOPPER MD FACP [facility] Aug 20, 2020 11:04
--- NOTE | 2020-08-20 11:17 | NUR ---
DR HOPPER NOTIFIED THIS NURSE PT MAY GO HOME FROM [facility]. DR HOPPER PUT IN MEDICATION ORDERS. PT NEEDS A BMP, POTASSIUM, AND MAG LEVEL DRAWN IN ONE WEEK TO ADJUST MEDICATIONS NEEDED. PT ALSO NEEDS TO FOLLOW UP WITH HIS PIPE MAKER IN 1-[address] ALVARADO NOTIFIED.
--- NOTE | 2020-08-20 11:23 | NUR ---
Palliative RN and Medical Student Elvin went to see patient due to his Hx of CAD, COPD, DM and other medical factors. We had long discussion with him regarding various topics, the most lengthy of which was about his dogs. Patient called his sister Hellen whom I spoke with on speaker phone. She did confirm that the patient has Oxygen at home which he is supposed to wear at [facility], but does not due to the canula irritating his nose. Hellen report he had HHC through [facility] and also has in hoe care attendants throughout the day. Patient reports he would like additional care in the morning due to needing assistance in getting up. Cardiology is good with discharge today. Echo is not read yet but is in question as to result by his sister.
[2020-08-20] MEDS ORDERED: POTA20TA8 PO (11:43)
[2020-08-20] MEDS ORDERED: FURO40TA4 PO (11:43)
[2020-08-20] MEDS ORDERED: PRD20T PO (11:54)
--- NOTE | 2020-08-20 11:54 | Discharge Summary ---
Discharge Summary Reconcile Patient Problems Problems Reviewed?: Yes Instructions for Patient [facility] Assessment/Instructions Follow up with primary Dye Tub Tender within the week if possible. Get BMP and and magnesium level checked in one week. Physician to follow Patient: Dr. Couch, follow up appt on 08/26 at 3 pm Discharge Diet for Home: ADA Diet, Cardiac Diet, Low Sodium Diet Hospital Course Date of Admission: Aug 18, 2020 at 02:40 Admission Diagnosis : Chest pain See problem list Family Physician/Provider: Claus Couch MD Date of Discharge: 08/20/20 Discharge Diagnosis: Chest pain- Cardiology consulted, troponin negative x 4, no acute EKG changes COPD exacerbation- started on IV solumedrol and albuterol, changed to oral with improved respiratory status and on room air more than 24 hours before d/c. CHF exacerbation- Cardiology consulted, echo with grade 1 diastolic dysfunction, EF normal, given IV lasix and converted to PO on discharge, needs to have BMP and magnesium checked in one week and follow up with primary Dye Tub Tender. COVID PUI- ruled out DMII- resumed home meds on d/c, consider changing pioglitazone depending on c ourse of CHF. Pyriua- urine culture with mixed bacteria, suspect due to intermittent self- cath, no evidence of infection. Hospital Course: [ ] Labs and Pending Lab Test: Laboratory Tests 08/20/20 03:45: White Blood Count 6.8, Red Blood Count 3.02L, Hemoglobin 8.1L, Hematocrit 25L, Mean Corpuscular Volume 83, Mean Corpuscular Hemoglobin 27, Mean Corpuscular Hemoglobin Concent 32, Red Cell Distribution Width 14.1, Platelet Count 287, Mean Platelet Volume 9.0, Sodium Level 136, Potassium Level 3.1L, Chloride Level 95L, Carbon Dioxide Level 29, Anion Gap 12, Blood Urea Nitrogen 40H, Creatinine 1.18, Estimat Glomerular Filtration Rate > 60, BUN/Creatinine Ratio 34, Glucose Level 122H, Calcium Level 8.7, Magnesium Level 1.6 Microbiology 08/18/20 Blood Culture - Preliminary, Resulted Bacillus species 08/17/20 Urine Culture - Final, Complete Mixed Bacterial Na Home Meds Active Furosemide 40 Mg Tablet 40 Mg PO DAILY@ Klor-Con M20 (Potassium Chloride) 20 Meq Tab.er.prt 20 Meq PO DAILY@0700 Fluoxetine HCl 20 Mg Capsule 20 Mg PO DAILY 1 Days Oxycontin (Oxycodone HCl) 20 Mg Tab.er.12h 20 Mg PO BID Oxycodone-Acetaminophen 10-325 (Oxycodone HCl/Acetaminophen) 1 Each Tablet 1 Tab PO Q4H PRN Reported Acid Hand I Thermal Cutter (FAMOTIDINE) (Famotidine) 20 Mg Tablet 20 Mg PO HS Ramipril 5 Mg Capsule 5 Mg PO DAILY Urecholine (Bethanechol Chloride) 10 Mg Tablet 25 Mg PO BID Olanzapine 5 Mg Tablet 5 Mg PO HS Metformin HCl 850 Mg Tablet 850 Mg PO DAILY Levetiracetam 500 Mg Tablet 500 Mg PO BID Lamotrigine 25 Mg Tablet 100 Mg PO BID Proair Hfa (Albuterol Sulfate) 1 Puff Puff 2 Puff INH Q4H PRN Fenofibrate (Fenofibrate Nanocrystallized) 145 Mg Tablet 145 Mg PO DAILY Pioglitazone HCl 30 Mg Tablet 30 Mg PO DAILY Ezetimibe 10 Mg Tablet 10 Mg PO HS Clopidogrel (Clopidogrel Bisulfate) 75 Mg Tablet 75 Mg PO DAILY Gabapentin 300 Mg Capsule 300 Mg PO HS Temazepam 7.5 Mg Capsule 7.5 Mg PO HS PRN Aspirin EC (Aspirin) 81 Mg Tablet.dr 81 Mg PO DAILY Trazodone HCl 50 Mg Tablet 50 Mg PO HS Lorazepam 1 Mg Tablet 1 Mg PO BID Fluticasone Propionate 16 Gm Tappan.susp 2 Sprays NS DAILY Betimol (Timolol) 5 Ml Drops 1 Drop OU BID 0.5% Flomax (Tamsulosin HCl) 0.4 Mg Cap 0.4 Mg PO HS Simvastatin 40 Mg Tablet 40 Mg PO 1800 Flovent Hfa 110 mcg (Fluticasone Propionate) 1 Ea Aero 1 Puff INH BID Patient Allergies: Coded Allergies: Penicillins (Verified Allergy, Unknown, 04/22/17) diazepam (Unverified Allergy, Unknown, 03/07/17) doxycycline (Unverified Allergy, Unknown, RASH, 03/07/17) phenobarbital (Unverified Allergy, Unknown, 03/07/17) RELAXES ME TOO MUCH piperacillin (Unverified Allergy, Unknown, RASH, PT HAS RECEIVED CEFAZOLIN IN THE PAST W/O ISSUE, 03/08/17) sulfamethoxazole (Verified Allergy, Unknown, 04/22/17) terazosin (Unverified Allergy, Unknown, 03/07/17) CHEST PAIN Height (Feet): 5 Height (Inches): 5.00 Weight (Pounds): 160 Weight (Ounces): 15.4 Home Health Need/Face to Face Date of Face to Face: Aug 20, 2020 Clinical Findings: Instability, Unsteady gait I have seen Pt [id number]: Yes Discharged To: Home Diagnosis/Conditions: See problem list Patient is Homebound due to: Stella fall risk due to instabilty Homebound Status Due to the above stated illness, injury or surgical procedure (medical condition or diagnosis) and associated clinical findings, the patient is homebound because of his/her inability to leave home except with aid of a supportive device and/or person AND leaving the home requires a considerable and taxing effort or is medically contraindicated. Pt req the following assistanc: Aid of another person, [facility] Nursing Orders Home Health Services Order: Nursing Services, Physical Therapy-Evaluate & Treat Home Health Infusion Therapy Line Start Date: Aug 17, 2020 Home Health Lab Orders Labs (specify type/freq): BMP and magnesium on 08/27/20 Therapy Orders Therapy Orders: Physical Therapy, PT to assess for OT Certify Stmt I certify that this patient is under my care and that I, a nurse practitioner or a physician; a litigation legal assistant working with me, had a face to face encounter that -meets the physician face to face encounter requirements with this patient as dated. Discharge Physical Exam General: Alert, No Acute Distress Lungs: Clear to Auscultation, Normal Air Movement Heart: Regular Rate, No Murmurs Abdomen: Normal Bowel Sounds, Soft Neuro: Normal Speech Psych/Mental Status: Mood NL Diagnosis/Problems Problems/Diagonsis (1) Elevated brain natriuretic peptide (BNP) level Status: Acute (2) Chest pain Status: Acute Qualifiers: Qualified Codes: R07.89 - Other chest pain (3) COPD exacerbation Status: Acute (4) Person under investigation for COVID-19 Status: Acute (5) Acute exacerbation of congestive heart failure Status: Acute Qualifiers: Qualified Codes: I50.9 - Heart failure, unspecified (6) Glaucoma Status: Chronic (7) Bipolar disorder Status: Chronic (8) Diabetes mellitus Status: Chronic Qualifiers: Qualified Codes: E11.69 - Type 2 diabetes mellitus with other specified complication (9) Depression Status: Chronic (10) Seizure disorder Status: Chronic (11) Hypertension Status: Chronic Qualifiers: Qualified Codes: I10 - Essential (primary) hypertension (12) Hyperlipidemia Status: Chronic (13) Coronary artery disease Status: Chronic Qualifiers: (14) COPD (chronic obstructive pulmonary disease) Status: Chronic Qualifiers: Qualified Codes: J41.0 - Simple chronic bronchitis (15) Urinary retention Status: Chronic (16) Chronic pain Status: Chronic Qualifiers: Qualified Codes: G89.4 - Chronic pain syndrome (17) Pyuria Status: Acute PHI ALVARADO MD Aug 20, 2020 11:49
--- NOTE | 2020-08-20 12:12 | NUR ---
THIS NURSE CALLED MARINA RN WITH [facility]. DISCHARGE PAPER WORKED FAXED. MARINA SAID PT IS ALL SET UP.
--- NOTE | 2020-08-20 14:07 | NUR ---
CM/SS: Visited with pt as to his plan for discharge, confirming his Home Care with [facility], and transportation arrangements Plan: Pt to return home with [facility] Resumed Summary: Pt is sitting up in his recliner eating his lunch. Pt is able to confirm that he has [facility]. This worker lets pt know that he will continue to have their services when he is discharged. Pt does report that his sister can pick him up, however she will do so after she gets off work as she is a preschool teacher aide. This worker calls and leaves message for pt's sister - Hellen - [phone] checking that she can pick him up when she gets off work today. Contact number is left for her to call this worker back. Telephone call from Hellen - she can bean picker pt after she gets off work. It will be after 4pm and she is coming from [place]. PRIYA Hairston on floor is notified of the above Information is faxed to [facility]. .
--- NOTE | 2020-08-20 14:35 | NUR ---
PT EDUCATED ON DC PAPERWORK. PT STATED UNDERSTANDING.
[2020-08-20] MEDS: ENOXAPARIN 80 MG/0.8 ML (LOVENOX) SYR SC SCH (14:38)
[2020-08-20] MEDS ORDERED: FUROSEMIDE 40 MG (LASIX) TAB PO SCH (17:00)
[2020-08-20] MEDS ORDERED: SIMvastatin 40 MG (ZOCOR) TAB PO SCH (18:00)
[2020-08-21] MEDS ORDERED: KCL 20 MEQ TAB (K-DUR) PO SCH (07:00)
== END 2020-08-20 16:40 | disposition home or self-care (01) | DRG 190 ==
LOC: EDUNIT# 22:55 → ER FS 22:58 → CSD 08-18 02:40
PROVIDERS: ADMIT Internal Medicine; ATTEND Family Medicine
DX: J44.1 Chronic obstructive pulmonary disease with (acute) exacerbation (principal); I50.33 Acute on chronic diastolic (congestive) heart failure; I11.0 Hypertensive heart disease with heart failure; Z20.828 Contact with and (suspected) exposure to other viral communicable diseases; E11.9 Type 2 diabetes mellitus without complications; R82.81 Pyuria; I25.10 Atherosclerotic heart disease of native coronary artery without angina pectoris; E78.00 Pure hypercholesterolemia, unspecified; K21.9 Gastro-esophageal reflux disease without esophagitis; M19.90 Unspecified osteoarthritis, unspecified site; F31.9 Bipolar disorder, unspecified; F41.9 Anxiety disorder, unspecified; G40.909 Epilepsy, unspecified, not intractable, without status epilepticus; R33.9 Retention of urine, unspecified; H40.9 Unspecified glaucoma; G89.29 Other chronic pain; D64.9 Anemia, unspecified; Z95.1 Presence of aortocoronary bypass graft; Z95.5 Presence of coronary angioplasty implant and graft
CPT/HCPCS: 36415; 51702; 71045; 80048; 80053; 81000; 83605; 83735; 83880; 84484; 85007; 85025; 85027; 85610; 85730; 87040; 87088; 87635; 93005; 94640; 94760

== ENCOUNTER 2020-08-31 21:17 | Day surgery (SDC) | payer MEDICARE, MEDICAID ==
[~2020-08-31] VITALS: Ht 165.1 cm; Wt 73.0 kg
[~2020-08-31 21:17] MED LIST changes: +BTH10T PO; +FAMO20TA3 PO; +FURO40TA4 PO; +LAMO25TA8 PO; +LEVE500T6 PO; +METF-398 PO; +OLAN5TAB25 PO; +POTA20TA8 PO; +PRD20T PO; +RAMI5CAP65 PO
--- NOTE | 2020-08-31 21:19 | NUR ---
PT TO OR 5 PER EMS C/O SOB ET CHEST PAIN. ASA 325MG, NTG 0.4MG, ZOFRAN 4MG ET LASIX 40MG ADMINISTERED BY EMS ENGINE RESEARCH ENGINEER 2119-BLOOD DRAWN AT THIS TIME 2127-NTG 0.4MG SL ADMINISTERED 2131-CONSENT FOR CARDIAC CATH DISCUSSED W/ PT. RISKS ET BENEFITS DISCUSSED, PT VOICED UNDERSTANDING. THIS RN ET SHANA POWERS WITNESSED CONSENT PT UNABLE TO SIGN DUE TO DETERIORATING CONDITION. 2132-PLANS TO INTUBATE 2144-ETOMIDATE 20MG IVP 2146-SUCCS 100MG IVP 2148-7.5 ET TUBE PLACED BY ASTRID MS3, DR KEY AT BEDSIDE, 23@ TEETH, COLOR CHANGE NOTED, BILAT BREATH SOUNDS AUSCULTATED, CONDENSATION NOTED IN THE TUBE. 2150-16F OG PLACED BY DELMAR POWERS 2152-VERSED 2.5MG, FENTANYL 50MCG ADMINISTERED IV 2154-LAND USE PLANNER HERE FOR PT 2156-16F LARA PLACED BY DELMAR POWERS 2156-CXR AT BEDSIDE 2201-PT TO LAND USE PLANNER AT THIS TIME
[2020-08-31] MEDS ORDERED: NITROGLYCERIN 0.4 MG SL TABS BTL 25'S SL ONE (21:28)
[2020-08-31] MEDS ORDERED: fentaNYL INJECTION 100 MCG/2 ML AMP IV ONE (21:34)
[2020-08-31] MEDS ORDERED: MIDAZOLAM 5 MG/5 ML (VERSED) VIAL IJ ONE (21:34)
[2020-08-31] MEDS ORDERED: ETOMIDATE IV SOLN 20 MG/10 ML VIAL IV ONE (21:34)
[2020-08-31] MEDS ORDERED: SUCCINYLCHOLINE INJ 100 MG/5 ML SYR/VIAL INJ ONE (21:34)
[2020-08-31 21:35] LABS: BASOPHILS % (AUTO) 0 % (0-10); EOSINOPHILS # (AUTO) 0.1 10^3/uL (0.0-0.3); EOSINOPHILS % (AUTO) 1 % (0-10); HEMATOCRIT 27 % (40-54); HEMOGLOBIN 8.8 g/dL (13.3-17.7); LYMPHOCYTES # (AUTO) 3.7 10^3/uL (1.0-4.0); LYMPHOCYTES % (AUTO) 19 % (12-44); MEAN CORPUSCULAR HEMOGLOBIN 26 pg (25-34); MEAN CORPUSCULAR HGB CONC 32 g/dL (32-36); MEAN CORPUSCULAR VOLUME 81 fL (80-99); MEAN PLATELET VOLUME 8.7 fL (9.0-12.2); MONOCYTES # (AUTO) 1.4 10^3/uL (0.0-1.0); MONOCYTES % (AUTO) 7 % (0-12); NEUTROPHILS # (AUTO) 14.6 10^3/uL (1.8-7.8); NEUTROPHILS % (AUTO) 73 % (42-75); PLATELET COUNT 630 10^3/uL (130-400)
[2020-08-31 21:45] LABS: INR 1.3 (0.8-1.4); PROTHROMBIN TIME PATIENT 16.2 SEC (12.2-14.7)
[2020-08-31] MEDS ORDERED: fentaNYL INJECTION 100 MCG/2 ML AMP ONE (21:48)
[2020-08-31] MEDS ORDERED: HEParin 1000 UNIT/ML (10ML VIAL) FOR BOLUS ONE (21:48)
[2020-08-31] MEDS ORDERED: MIDAZOLAM 5 MG/5 ML (VERSED) VIAL ONE (21:48)
[2020-08-31] MEDS ORDERED: LIDOCAINE 1% INJ 20 ML 20 ML VIAL ONE (21:48)
--- NOTE | 2020-08-31 21:48 | Consultation-Cardiology ---
HPI-Cardiology Cardiology Consultation Date of Consultation 08/31/20 Date of Admission Time Seen by Provider: 21:44 Indication: acute respiratory failure HPI 69 years old gentleman with extensive cardiac history, congestive heart failure left ventricular diastolic dysfunction and coronary artery disease started to have increased shortness of breath, progressed to respiratory failure, brought by EMS, currently in acute respiratory failure on BiPAP and we are proceeding with intubation. Unable to provide full history. No fever or chills. Patient has new onset left bundle branch block Home Medications & Allergies Allergies: Coded Allergies: Penicillins (Verified Allergy, Unknown, 04/22/17) diazepam (Unverified Allergy, Unknown, 03/07/17) doxycycline (Unverified Allergy, Unknown, RASH, 03/07/17) phenobarbital (Unverified Allergy, Unknown, 03/07/17) RELAXES ME TOO MUCH piperacillin (Unverified Allergy, Unknown, RASH, PT HAS RECEIVED CEFAZOLIN IN THE PAST W/O ISSUE, 03/08/17) sulfamethoxazole (Verified Allergy, Unknown, 04/22/17) terazosin (Unverified Allergy, Unknown, 03/07/17) CHEST PAIN Home Medication List Reviewed: Yes FEA-Thyutw-Ijinru Hx Patient Social History Alcohol Use: Denies Use Recreational Drug Use: No Type Used: Cigarettes 2nd Hand Smoke Exposure: Yes Recent Foreign Travel: No Recent Infectious Disease Expo: No Recent Hopitalizations: Yes (Discharged 07/19/2020) Immunizations Up To Date Tetanus Booster (TDap): Unknown Date of Pneumonia Vaccine: Nov 24, 2016 Date of Influenza Vaccine: Aug 08, 2012 Past Medical History Discussed below Family Medical History Family History: Patient reports no known family medical history. Review of Systems-General Review of Systems Constitutional: malaise, weakness, other (unable to provide full review of systems due to respiratory failure) Respiratory: dyspnea on exertion, short of breath Reviewed Test Results Reviewed Test Results Lab Labs are pending ECG Impression ECG Initial ECG Rhythm: Normal Sinus Initial ECG Intervals Left bundle branch block Physical Exam Physical Exam Vital Signs Vital Signs - First Documented 08/31/20 21:19 Temp 36.3 Pulse 108 Resp 28 B/P (MAP) 173/127 (142) Pulse Ox 100 O2 Delivery Nasal Cannula Capillary Refill : Less Than 3 Seconds Height, Weight, BMI Height: 5'5.00" Weight: 160lbs. 15.4oz. 73.519214ep; 25.00 BMI Method:Estimated General Appearance: No Apparent Distress, WD/WN Eyes: Bilateral Eye Normal Inspection, Bilateral Eye PERRL, Bilateral Eye EOMI HEENT: PERRL/EOMI, TMs Normal, Normal ENT Inspection, Pharynx Normal, Moist Mucous Membranes Neck: Full Range of Motion, Normal Inspection, Non Tender, Supple, Carotid Bruit Respiratory: Chest Non Tender, Crackles, Decreased Breath Sounds, Respiratory Distress Cardiovascular: Regular Rate, Rhythm, No JVD, Normal Peripheral Pulses, Systolic Murmur, Gallop/S3 Gastrointestinal: Normal Bowel Sounds, No Organomegaly, No Pulsatile Mass, Non Tender, Soft Back: Normal Inspection, No CVA Tenderness, No Vertebral Tenderness Extremity: Normal Capillary Refill, Normal Inspection, Normal Range of Motion, Non Tender, No Calf Tenderness, No Pedal Edema Neurologic/Psychiatric: Alert, Oriented x3, No Motor/Sensory Deficits, Normal Mood/Affect Skin: Normal Color, Warm/Dry Lymphatic: No Adenopathy A/P-Cardiology Admission Diagnosis Acute respiratory failure Acute myocardial infarction Acute congestive heart failure Acute renal failure Assessment/Plan Acute respiratory failure, acute pulmonary edema. Proceeding with emergency intubation. New-onset left bundle branch block, extensive cardiac history, will be treated as acute cardiogenic shock and myocardial infarction, will proceed with emergency cardiac catheterization COVID-19 PUI, will do rapid testing Coronary artery disease, H/o CABG in 2004 at [facility] with several stents post CABG most recently in 2011 per pt report (he reports 17 stents) Dr. Oconnor is his primary wharf builder, has been following with him. I'll proceed with emergency cardiac catheterization Acute renal failure, started on IV fluid Hyperlipidemia, maintained on statin. Continue to monitor lipids Hypertension, start medication, monitor blood pressure COPD, managed by primary care physician Diabetes mellitus, followed and managed by primary care physician History of seizure disorder History of neurogenic bladder MANE VARGAS MD Aug 31, 2020 9:48 pm
[2020-08-31] MEDS ORDERED: HEParin (CATH LAB) 1,000 ML IV ONE (21:49)
[2020-08-31] MEDS ORDERED: NS IV 1000 ML 1,000 ML ONE ×2 (21:49→22:22)
[2020-08-31] MEDS ORDERED: NITRO DRIP 25000 MCG/D5W 0 ML IV ONE (21:49)
--- NOTE | 2020-08-31 21:49 | Cardiac Procedure Note-CS/ASA ---
Pre-Procedure Note Pre-Op Procedure Note H&P Reviewed The H&P was reviewed, patient examined and no changes noted. Date H&P Reviewed: Aug 31, 2020 Time H&P Reviewed: 21:48 Conscious Sedation Pre-Proced Time 21:48 ASA Score 3 For ASA 3 and 4: Consider anesthesia and medical clearance. Also, for patients with a history of failed moderate sedation consider anesthesia. Airway Lungs Heart ASA score ASA 1: a normal healthy patient ASA 2: a patient with a mild systemic disease (mid diabetes, controlled hypertension, obesity ASA 3: a patient with a severe systemic disease that limits activity (angina, COPD, prior Myocardial infarction) x ASA 4: a patient with an incapacitating disease that is a constant threat to life (CHF, renal failure) ASA 5: a moribund patient not expected to survive 24 hrs. (ruptured aneurysm) ASA 6: a declared brain- patient whose organs are being harvested. For emergent operations, add the letter E after the classification Mallampati Classification Grade 3 Sedation Plan Analgesia, Amnesia, Plan communicated to team members, Discussed options with patient/fam, Discussed risks with patient/fam The patient is an appropriate candidate to undergo the planned procedure, sedation, and anesthesia. The patient immediately re-assessed prior to indication. MANE VARGAS MD Aug 31, 2020 21:49
--- NOTE | 2020-08-31 22:00 | ED Chest Pain ---
General Chief Complaint: Chest Pain Stated Complaint: STEMI Nursing Triage Note: PT TO ED W/ C/O CHEST PAIN ONSET 2016 THIS EVENING. PER EMS, GAVE SELF BREATHING TX W/O IMPROVEMENT. EMS REPORTS ADMINISTERING NTG 0.4MG X1, ASA 324MG, ZOFRAN 4MG ET LASIX 40MG Nursing Sepsis Screen: No Definite Risk Source: patient, EMS Exam Limitations: clinical condition History of Present Illness Date Seen by Provider: Aug 31, 2020 Time Seen by Provider: 21:15 Initial Comments Here by EMS with report of respiratory distress and concerns for EKG changes w ith history of multiple previous MIs and stents as well as CABG. Seen here 2 weeks ago for respiratory problems and had normal EF at that time. Patient is having difficult time with talking due to distress. Is requiring oxygen and has to sit up to breathe. Does not specifically report chest pain. EMS notes that blood pressures were 170s systolic. They did give ASA 324 mg by mouth as well as 1 sublingual nitroglycerin and Lasix 40 mg IV. Patient states that he feels weak and not well. Otherwise not able to tell history very well due to distress. Onset was acute this evening. He did receive Zofran 4 mg IV for nausea. Timing/Duration: 1 hour, constant Severity/Quality: severe, other (shortness of breath) Location: central Radiation: no radiation Prior CP/Workup: cardiac cath, echocardiography, heart attack Modifying Factors: improves with nitroglycerin, improves with oxygen, improves with rest ASA po MANAGER MASS: Yes NTG SL MANAGER MASS: Yes Associated Symptoms: No abdominal pain, No back pain; diaphoresis; No fever/chills; nausea/vomiting, shortness of breath, weakness Allergies and Home Medications Allergies Coded Allergies: Penicillins (Verified Allergy, Unknown, 04/22/17) diazepam (Unverified Allergy, Unknown, 03/07/17) doxycycline (Unverified Allergy, Unknown, RASH, 03/07/17) phenobarbital (Unverified Allergy, Unknown, 03/07/17) RELAXES ME TOO MUCH piperacillin (Unverified Allergy, Unknown, RASH, PT HAS RECEIVED CEFAZOLIN IN THE PAST W/O ISSUE, 03/08/17) sulfamethoxazole (Verified Allergy, Unknown, 04/22/17) terazosin (Unverified Allergy, Unknown, 03/07/17) CHEST PAIN Home Medications Albuterol Sulfate 1 Puff Puff, 2 PUFF INH Q4H PRN for SHORTNESS OF BREATH, (Reported) Aspirin 81 Mg Tablet.dr, 81 MG PO DAILY, (Reported) Bethanechol Chloride 10 Mg Tablet, 25 MG PO BID, (Reported) Clopidogrel Bisulfate 75 Mg Tablet, 75 MG PO DAILY, (Reported) Ezetimibe 10 Mg Tablet, 10 MG PO HS, (Reported) Famotidine 20 Mg Tablet, 20 MG PO HS, (Reported) Fenofibrate Nanocrystallized 145 Mg Tablet, 145 MG PO DAILY, (Reported) Fluoxetine HCl 20 Mg Capsule, 20 MG PO DAILY Prescribed by: PHI ALVARADO on 08/19/20 174 Fluticasone Propionate 1 Ea Aero, 1 PUFF INH BID, (Reported) Fluticasone Propionate 16 Gm [place].susp, 2 SPRAYS NS DAILY, (Reported) Furosemide 40 Mg Tablet, 40 MG PO DAILY@ Prescribed by: PHI ALVARADO on 08/20/20 114 Gabapentin 300 Mg Capsule, 300 MG PO HS, (Reported) Lamotrigine 25 Mg Tablet, 100 MG PO BID, (Reported) Levetiracetam 500 Mg Tablet, 500 MG PO BID, (Reported) Lorazepam 1 Mg Tablet, 1 MG PO BID, (Reported) Metformin HCl 850 Mg Tablet, 850 MG PO DAILY, (Reported) Olanzapine 5 Mg Tablet, 5 MG PO HS, (Reported) Oxycodone HCl 20 Mg Tab.er.12h, 20 MG PO BID Prescribed by: CARLOS ESCOTO on 07/26/17 09 Oxycodone HCl/Acetaminophen 1 Each Tablet, 1 TAB PO Q4H PRN for BREAKTHROUGH PAIN Prescribed by: CARLOS ESCOTO on 07/26/17 09 Pioglitazone HCl 30 Mg Tablet, 30 MG PO DAILY, (Reported) Potassium Chloride 20 Meq Tab.er.prt, 20 MEQ PO DAILY@0700 Prescribed by: PHI ALVARADO on 08/20/20 1143 Prednisone 20 Mg Tab, 40 MG PO DAILY@0700 Prescribed by: PHI ALVARADO on 08/20/20 1154 Ramipril 5 Mg Capsule, 5 MG PO DAILY, (Reported) Simvastatin 40 Mg Tablet, 40 MG PO 1800, (Reported) Tamsulosin HCl 0.4 Mg Cap, 0.4 MG PO HS, (Reported) Temazepam 7.5 Mg Capsule, 7.5 MG PO HS PRN for INSOMNIA, (Reported) Timolol 5 Ml Drops, 1 DROP OU BID, (Reported) 0.5% Trazodone HCl 50 Mg Tablet, 50 MG PO HS, (Reported) Patient Home Medication List Home Medication List Reviewed: Yes Review of Systems Review of Systems Constitutional: see HPI, diaphoresis, weakness, other (unable to provide full review of systems due to respiratory failure) EENTM: No Symptoms Reported Respiratory: See HPI, Cough, Shortness of Air Cardiovascular: Denies Chest Pain; Edema Gastrointestinal: Nausea; Denies Vomiting Genitourinary: No Symptoms Reported All Other Systems Reviewed Negative Unless Noted: Yes Past Sbvpfkz-Dkrszo-Rqozbf Hx Past Med/Social Hx: Reviewed Nursing Past Med/Soc Hx Patient Social History Alcohol Use: Denies Use Recreational Drug Use: No Type Used: Cigarettes 2nd Hand Smoke Exposure: Yes Recent Foreign Travel: No Contact w/Someone Who Travel: No Recent Infectious Disease Expo: No Recent Hopitalizations: Yes (Discharged 07/19/2020) Immunizations Up To Date Tetanus Booster (TDap): Unknown Date of Pneumonia Vaccine: Nov 24, 2016 Date of Influenza Vaccine: Aug 08, 2012 Seasonal Allergies Seasonal Allergies: No Past Medical History Surgeries: Yes Appendectomy, Cardiac, CABG, Coronary Stent, Gallbladder, Orthopedic, Penile Implant, Renal, Transurethral Resection Respiratory: Yes Asthma, COPD, Emphysema Currently Using CPAP: No Currently Using BIPAP: No Cardiac: Yes (CABG [place] 1999; 16 CARDIAC STENTS) Chronic Edema/Swelling, Coronary Artery Disease, High Cholesterol, Hypertension Neurological: Yes Headaches /Migraines, Seizure Disorder Reproductive Disorders: Yes (ED--PENILE IMPLANT) Sexually Transmitted Disease: No HIV/AIDS: No Genitourinary: Yes Benign Prostatic Hyperpl, Kidney Stones Gastrointestinal: Yes Gastroesophageal Reflux, Ulcer Musculoskeletal: Yes Arthritis Endocrine: Yes Diabetes, Non-Insulin dep HEENT: Yes Cataract, Glaucoma Loss of Vision: Denies Hearing Impairment: Hard of Hearing Cancer: No Psychosocial: Yes Anxiety, Bipolar, Depression Integumentary: No Blood Disorders: No Adverse Reaction/Blood Tranf: No Family Medical History Reviewed Nursing Family Hx Patient reports no known family medical history. Physical Exam Vital Signs Vital Signs - First Documented 08/31/20 08/31/20 21:19 21:28 Temp 36.3 Pulse 108 Resp 28 B/P (MAP) 173/127 (142) Pulse Ox 100 O2 Delivery Nasal Cannula FiO2 35 Capillary Refill : Less Than 3 Seconds Height, Weight, BMI Height: 5'5.00" Weight: 160lbs. 15.4oz. 73.177503pt; 25.00 BMI Method:Estimated General Appearance: Chronically ill, Severe Distress HEENT: PERRL/EOMI, Pharynx Normal Neck: Non Tender, Supple Respiratory: Crackles (bilateral), Respiratory Distress Cardiovascular: No Murmur, Tachycardia Gastrointestinal: Non Tender, Soft Extremity: Normal Range of Motion, Non Tender, Pedal Edema (2+ bilateral to just above the ankles) Neurologic/Psychiatric: Alert, Oriented x3 Skin: Warm/Dry, Pallor Focused Exam Lactate Level 08/31/20 21:20: Lactic Acid Level 1.59 Lactic Acid Level Laboratory Tests Test 08/31/20 21:20 Lactic Acid Level 1.59 MMOL/L (0.50-2.00) Procedures/Interventions Date of ETT Placement: Aug 31, 2020 Time of ETT Placement: 21:49 Intubation Method: orotracheal Tube Size: 7.5 Medications: Etomidate, Fentanyl, Propofol, Succinylcholine, Versed Positive End Tide CO2: Yes Breath Sounds after Intubation: bilateral-equal Intubation Complications: no complications Post Intubation Xray: Yes ET tube in good position Progress/Results/Core Measures Results/Orders Lab Results Laboratory Tests Test 08/31/20 21:20 Range/Units White Blood Count 20.0 H 4.3-11.0 10^3/uL Red Blood Count 3.40 L 4.30-5.52 10^6/uL Hemoglobin 8.8 L 13.3-17.7 g/dL Hematocrit 27 L 40-54 % Mean Corpuscular Volume 81 80-99 fL Mean Corpuscular Hemoglobin 26 25-34 pg Mean Corpuscular Hemoglobin Concent 32 32-36 g/dL Red Cell Distribution Width 14.0 10.0-14.5 % Platelet Count 630 H 130-400 10^3/uL Mean Platelet Volume 8.7 L 9.0-12.2 fL Immature Granulocyte % (Auto) 1 % Neutrophils (%) (Auto) 73 42-75 % Lymphocytes (%) (Auto) 19 12-44 % Monocytes (%) (Auto) 7 0-12 % Eosinophils (%) (Auto) 1 0-10 % Basophils (%) (Auto) 0 0-10 % Neutrophils # (Auto) 14.6 H 1.8-7.8 10^3/uL Lymphocytes # (Auto) 3.7 1.0-4.0 10^3/uL Monocytes # (Auto) 1.4 H 0.0-1.0 10^3/uL Eosinophils # (Auto) 0.1 0.0-0.3 10^3/uL Basophils # (Auto) 0.0 0.0-0.1 10^3/uL Immature Granulocyte # (Auto) 0.1 0.0-0.1 10^3/uL Neutrophils % (Manual) 77 % Lymphocytes % (Manual) 16 % Monocytes % (Manual) 6 % Eosinophils % (Manual) 0 % Basophils % (Manual) 1 % Band Neutrophils 0 % Blood Morphology Comment NORMAL Prothrombin Time 16.2 H 12.2-14.7 SEC INR Comment 1.3 0.8-1.4 Activated Partial Thromboplast Time 33 24-35 SEC D-Dimer 0.58 H 0.00-0.49 UG/ML Sodium Level 129 L 135-145 MMOL/L Potassium Level 5.7 H 3.6-5.0 MMOL/L Chloride Level 97 L 98-107 MMOL/L Carbon Dioxide Level 19 L 21-32 MMOL/L Anion Gap 13 5-14 MMOL/L Blood Urea Nitrogen 26 H 7-18 MG/DL Creatinine 1.45 H 0.60-1.30 MG/DL Estimat Glomerular Filtration Rate 48 BUN/Creatinine Ratio 18 Glucose Level 132 H 70-105 MG/DL Lactic Acid Level 1.59 0.50-2.00 MMOL/L Calcium Level 8.9 8.5-10.1 MG/DL Corrected Calcium 8.8 8.5-10.1 MG/DL Magnesium Level 2.0 1.6-2.4 MG/DL Total Bilirubin 0.3 0.1-1.0 MG/DL Aspartate Amino Transf (AST/SGOT) 19 5-34 U/L Alanine Aminotransferase (ALT/SGPT) 10 0-55 U/L Alkaline Phosphatase 43 40-136 U/L Myoglobin 46.8 10.0-92.0 NG/ML Troponin I 0.205 H <0.028 NG/ML Total Protein 7.0 6.4-8.2 GM/DL Albumin 4.1 3.2-4.5 GM/DL My Orders Orders - SONNY KEY MD Cbc With Automated Diff (08/31/20:) Magnesium (08/31/20) Chest 1 View, Ap/Pa Only (08/31/20) Ekg Tracing (08/31/20:) Comprehensive Metabolic Panel (08/31/20) Myoglobin Serum (08/31/20) Protime With Inr (08/31/20) Partial Thromboplastin Time (08/31/20:) O2 (08/31/20:) Monitor-Rhythm Ecg Trace Only (08/31/20) Ed Iv/Invasive Line Start (08/31/20) Fibrin Degradation Products (08/31/20) Troponin I (08/31/20:) Blood Culture (08/31/20:) Sputum Culture (08/31/20) Urinalysis (08/31/20) Urine Culture (08/31/20:) Vital Signs Adult Sepsis Patie Q15M (08/31/20:25) Remove Rings In Anticipation O (08/31/20:) Lactic Acid Analyzer (08/31/20:) Nitroglycerin 0.4 Mg Btl 25's (Nitrostat (08/31/20 21:28) Manual Differential (08/31/20:20) Vital Signs/I&O 08/31/20 08/31/20 21:19 21:28 Temp 36.3 Pulse 108 Resp 28 B/P (MAP) 173/127 (142) Pulse Ox 100 100 O2 Delivery Nasal Cannula NIV Bilevel FiO2 35 Blood Pressure Mean: 142 Progress Progress Note : Progress Note Seen and evaluated on arrival by EMS. I did discuss the case with Dr. Goodman prior to patient arrival based on EMS EKG concerns. Cvt Rn team was activated at that time. After arrival, both sepsis and chest pain protocol initiated. EKG does show new left bundle-branch block and sinus tachycardia. In the setting of previous history of cardiac events as well as his extremist currently, we still are concerned about acute [place] equivalent and patient will continue to go to Cvt Rn. Patient was having respiratory difficulty and required oxygen and needed to be sat up to breathe effectively. Placed on BiPAP briefly and then after discussion with the patient and Dr. Goodman, intubation was elected. Patient intubated due to respiratory failure and extremis. Followed procedure well with no complications. Patient did have NG tube and Ull[place] catheter placed as well. Blood pressure improved from 170 systolic to 130's systolic. 2225: I have updated both Dr. Urbina on-call for patient's primary care provider in the pending sale to [facility] team as well as the ICU team. The patient did have rapid COVID testing performed which was negative and confirmatory testing is pending which will continue his person under investigation status. Low risk at this point but still a consideration. I did discuss with the ICU team regarding the chest x-ray findings. Could have infiltrates although appears to be more central vascular congestion but does have elevated white count. Troponin noted to be elevated as well as BNP. Patient went to Cvt Rn at 2201 Initial ECG Impression Date: Aug 31, 2020 Initial ECG Impression Time: 21:16 Initial ECG Rate: 108 Initial ECG Rhythm: S.Tach Comment Sinus tachycardia with left bundle branch block. Left axis deviation. Concerning for acute [place]. Change from previous which was sinus tachycardia without bundle branch block on 08/17/20. Interpreted by me. Diagnostic Imaging Diagonstic Imaging: Xray Plain Films/CT/US/NM/MRI: chest Comments Central pulmonary vascular congestion and pulmonary edema. Question scattered infiltrates medial aspect bilateral. Departure Communication (Admissions) Time/Spoke to Admitting Phy: 22:03 Time/Spoke to Consulting Phy: 21:29 Impression Primary Impression: Acute electrocardiogram changes Additional Impressions: Elevated troponin Respiratory failure Qualified Codes: J96.01 - Acute respiratory failure with hypoxia Acute diastolic heart failure Disposition: ADMITTED INPATIENT Condition: Critical Admissions Decision to Admit Reason: Admit from ER (General) Decision to Admit/Date: Aug 31, 2020 Time/Decision to Admit Time: 21:29 Departure-Patient Inst. Referrals: LOUANN COREY MD (PCP/Family) Primary Care Physician SONNY KEY MD Aug 31, 2020 22:00
[2020-08-31 22:01] LABS: ALBUMIN 4.1 GM/DL (3.2-4.5); BAND NEUTROPHILS 0 %; BASOPHILS % (MANUAL) 1 %; BILIRUBIN,TOTAL 0.3 MG/DL (0.1-1.0); CALCIUM 8.9 MG/DL (8.5-10.1); CREATININE SERUM 1.45 MG/DL (0.60-1.30); EOSINOPHILS % (MANUAL) 0 %; LYMPHOCYTES % (MANUAL) 16 %; MONOCYTES % (MANUAL) 6 %; NEUTROPHILS % (MANUAL) 77 %; POTASSIUM 5.7 MMOL/L (3.6-5.0); RBC MORPH NORMAL
[2020-08-31] MEDS: PROPOFOL DRIP (ICU) 100 ML IV SCH (22:01)
[2020-08-31] MEDS ORDERED: DOPamine DRIP 250 ML IV ONE (22:19)
[2020-08-31] MEDS: NS IV 1000 ML 1,000 ML IV SCH (22:59)
[2020-08-31] MEDS ORDERED: PATIENT MAY USE OWN MEDS, ALL PO SCH (23:00)
--- NOTE | 2020-08-31 23:03 | Cardiac Cath Report ---
Cardiac Cath Report Physician (s)/Lead Machinist (s) Physician MANE VARGAS MD Pre-Procedure Diagnosis Pre-Procedure Diagnosis: acute respiratory failure Post-Procedure Note Procedure Start Date: Aug 31, 2020 Name of Procedure: Left heart catheterization Left ventriculogram Vein graft angiogram POWELL angiogram Attempt for angioplasty to the vein graft Central venous line insertion Findings/Procedure Note PROCEDURE NOTE: 69 years old gentleman with extensive coronary artery disease, CABG, multiple intervention the past, presented with acute respiratory failure and new onset left bundle branch block, presumed acute myocardial infarction and acute respiratory failure, we proceeded with emergency cardiac catheterization possible PTCA After explaining the procedure to the patient, all pros and cons were explained, all questions were answered. The patient signed the consent and then he was placed on the cardiac catheterization laboratory. Groin was prepped SL fashion local anesthesia was used. Sheath placed in the right femoral artery. Lynn right and left catheter were used to access the coronary system.Vein Graft evaluated. POWELL evaluated. Pigtail was used to access the left ventricular cavity. Vein graft angiogram was done using Lynn right guide. The vein graft to the diagonal artery has multiple stents and is patent and filling the LAD system. There is another vein graft that is totally occluded presumably to an obtuse marginal branch, it appear to be chronic total occlusion but due to the fact that patient is with new-onset left bundle-branch block and elevation in troponin respiratory failure I decided to attempt intervention on that and graft to evaluate the occlusion. Patient was given 5000 units of heparin and I attempted to cross the lesion using a BMW wire without success then I used whisper extra support without any success then I used balloon 2.5 x 15 mm to support the wire trying to On the Above the occlusion. I was unable to advance any wire through that occlusion which makes it probably chronic total occlusion at this point. Left ventriculogram was done At the end of the procedure the sheath was removed. Closure device was deployed Patient had limited venous access and required large amount of IV fluid. I was able to access the right femoral vein, 5 Macedonian sheath was placed in the right femoral vein and use to give fluid. It was sutured in place FINDINGS: Hemodynamics LV 110/15, end-diastolic pressure 15 Aorta 103/58 mean of 79 ANATOMY: Left Main is free of obstructive disease Left Anterior Descending is occluded proximally, the vein graft to the diagonal artery is patent and filling the LAD Left Circumflex is large dominant artery, the first obtuse marginal branch is occluded, there is a vein graft presumably to the marginal branch is also occluded Right Coronory Artery is small nondominant artery with severe stenosis at the midportion POWELL is small, appear to be free Vein Graft evaluation showed 2 vein graft Vein graft to the diagonal artery is patent filling the LAD system The upper vein graft presumably to the obtuse marginal branch is occluded, I was unable to cross that lesion, probably chronic total occlusion LV Gram was done showing normal left ventricular size, EF 50 percent CONCLUSION: 1. Total occlusion in the proximal LAD, vein graft to the diagonal artery has multiple stents and is patent filling the LAD system 2. 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 Small nondominant right with severe stenosis at the midportion 4. Normal left ventricular size, normal left ventricular end-diastolic pressure, EF 50 percent 5. Successful insertion of a central venous line in the right femoral vein DISCUSSION AND RECOMMENDATION: Patient is in hypotensive shock, probably septic. He has underlying left ventricular diastolic dysfunction. Started on dopamine drip. Given heparin 5000 unit. Intubated and he will be transferred to intensive care unit Anesthesia Type: Conscious Sedation Estimated blood loss (mL): 25 ml Contrast Amount: 77 ml Total Radiation Dose: 499 mGy Post-Procedure Diagnosis Post-operative diagnosis: Acute respiratory failure Acute on chronic congestive heart failure left ventricular diastolic dysfunction Acute renal failure Acute myocardial infarction MANE VARGAS MD Aug 31, 2020 23:03
[2020-08-31 23:10] VITALS: BP 108/61
[2020-08-31 23:20] LABS: BILIRUBIN,URINE NEGATIVE (NEGATIVE); CLARITY,URINE CLEAR; COLOR,URINE YELLOW; GLUCOSE, URINE (UA) NEGATIVE (NEGATIVE); KETONES,URINE NEGATIVE (NEGATIVE); LEUKOCYTE ESTERASE ,URINE NEGATIVE (NEGATIVE); NITRITE,URINE NEGATIVE (NEGATIVE); PROTEIN,URINE NEGATIVE (NEGATIVE)
--- NOTE | 2020-08-31 23:44 | NUR ---
This RN contacted pt's DPOA, pt's sister Hellen Veloz, and updated her on pt's condition. Password set up at this time/
[2020-08-31 23:57] LABS: BACTERIA,URINE NEGATIVE /HPF; SQUAMOUS EPITHELIAL CELL,UR RARE /HPF; WBC,URINE 0-2 /HPF
[2020-09-01] MEDS: PROPOFOL DRIP (ICU) 100 ML IV SCH ×5 (00:23→20:20)
[2020-09-01] MEDS: NS IV 1000 ML 1,000 ML IV SCH ×3 (00:23→10:48)
[2020-09-01 00:58] LABS: ABG OXYGEN SATURATION 96 % (94-100); ABG PCO2 41 MMHG (35-45); ABG PO2 87 MMHG (79-93); ABG TCO2 21.8 MMOL/L (21.0-31.0)
[2020-09-01 00:59] LABS: ALLENS TEST POSITIVE; INSPIRED O2 50%; PATIENT TEMP 35.8; VENTILATOR YES
[2020-09-01 01:01] LABS: ABG PH 7.31 (7.37-7.43)
[2020-09-01 01:02] LABS: ALBUMIN 3.6 GM/DL (3.2-4.5)
[2020-09-01 01:03] LABS: CALCIUM 7.8 MG/DL (8.5-10.1)
[2020-09-01 01:06] LABS: BILIRUBIN,TOTAL 0.7 MG/DL (0.1-1.0)
[2020-09-01 01:08] LABS: CREATININE SERUM 1.3 MG/DL (0.60-1.30)
[2020-09-01] MEDS: NOREPINEPHRINE 4 MG/250 ML 250 ML IV SCH ×3 (01:13→17:49)
[2020-09-01 01:30] VITALS: BP 108/61
[2020-09-01 03:44] LABS: HEMOGLOBIN 8.4 g/dL (13.3-17.7); MEAN PLATELET VOLUME 8.4 fL (9.0-12.2); WHITE BLOOD COUNT 14.3 10^3/uL (4.3-11.0)
[2020-09-01 04:04] LABS: CALCIUM 8.3 MG/DL (8.5-10.1); CREATININE SERUM 1.33 MG/DL (0.60-1.30); POTASSIUM 4.8 MMOL/L (3.6-5.0)
[2020-09-01] MEDS ORDERED: DOPamine DRIP 250 ML IV ONE (08:03)
--- NOTE | 2020-09-01 08:10 | Diagnostic Imaging Report ---
EXAMINATION: Chest radiograph, portable AP view. DATE: 08/31/2020 10:06 PM hours. INDICATION: 69-year-old male, chest pain. COMPARISON: August 17, 2020. FINDINGS: There are median sternotomy wires. The endotracheal tube is approximately 1.8 cm above the german. The nasogastric tube extends below the included field of view. Stable overall appearance of the cardiomediastinal silhouette. There is no identified pneumothorax. There is blunting of the left lateral costophrenic angle and obscuration of visualization of the left hemidiaphragm. There are bilateral predominantly interstitial appearing opacities which are unchanged. IMPRESSION: 1. Interval placement of the endotracheal tube and nasogastric tube as above. 2. Grossly unchanged bilateral predominantly interstitial opacities. 3. Probable left pleural effusion. Dictated by: Dictated on workstation # [id number]
[2020-09-01] MEDS: DOPamine DRIP 250 ML IV SCH ×2 (08:19→17:51)
[2020-09-01] MEDS: PANTOPRAZOLE 40 MG (PROTONIX) VIAL IV SCH (08:20)
--- NOTE | 2020-09-01 10:09 | History & Physical-Hospitalist ---
History of Present Illness HPI/Chief Complaint this is a 69-year-old white male who was admitted on 08/31/20 with chest pain and respiratory failure. While awaiting the arrival to the catheter team the patient's respiratory status declined and he was electively intubated before the heart catheter was performed. Heart catheter was indicated by the history of chest pain and a new left bundle branch block. Heart catheter showed no new obstructing lesions but evidence of the previous stents and bypass been in the same state as they were on the last heart catheter. The patient has been ventilated overnight in an abundance of caution. This morning when I saw the patient he was on 50 percent FiO2 with oxygen saturations of 98 percent and stable vital signs. He was sedated and nonresponsive. As such history is obtained from the old charts Source: old records Exam Limitations: clinical condition Date Seen 09/01/20 Time Seen by a Provider: 09:15 Attending Physician Delmar Goodman MD PCP Claus Couch MD Referring Physician Date of Admission Home Medications & Allergies Home Medications Reviewed patient Home Medication Reconciliation performed by pharmacy medication reconciliations automobile glass technician and/or nursing. Patients Allergies have been reviewed. Allergies Allergies Coded Allergies Penicillins (Verified Allergy, Unknown, 04/22/17) diazepam (Unverified Allergy, Unknown, 03/07/17) doxycycline (Unverified Allergy, Unknown, RASH, 03/07/17) phenobarbital (Unverified Allergy, Unknown, 03/07/17) RELAXES ME TOO MUCH piperacillin (Unverified Allergy, Unknown, RASH, PT HAS RECEIVED CEFAZOLIN IN THE PAST W/O ISSUE, 03/08/17) sulfamethoxazole (Verified Allergy, Unknown, 04/22/17) terazosin (Unverified Allergy, Unknown, 03/07/17) CHEST PAIN Past Uoqdwja-Jxyoif-Mfkimo Hx Past Med/Social Hx: Reviewed Nursing Past Med/Soc Hx Patient Social History Marrital Status: single Employed/Student: retired Alcohol Use: Denies Use Recreational Drug Use: No Type Used: Cigarettes 2nd Hand Smoke Exposure: Yes Recent Foreign Travel: No Contact w/other who traveled: No Recent Hopitalizations: Yes (Discharged 07/19/2020) Recent Infectious Disease Expo: No Immunizations Up To Date Tetanus Booster (TDap): Unknown Date of Pneumonia Vaccine: Nov 24, 2016 Date of Influenza Vaccine: Aug 08, 2012 Seasonal Allergies Seasonal Allergies: No Past Medical History Surgeries: Appendectomy, Cardiac, CABG, Coronary Stent, Gallbladder, Orthopedic, Penile Implant, Renal, Transurethral Resection Respiratory: COPD Currently Using CPAP: No Currently Using BIPAP: No Cardiac: Chronic Edema/Swelling, Coronary Artery Disease, High Cholesterol, Hypertension Neurological: Headaches /Migraines, Seizure Disorder Reproductive: Yes (ED--PENILE IMPLANT) Sexually Transmitted Disease: No HIV/AIDS: No Genitourinary: Benign Prostatic Hyperpl, Kidney Stones Gastrointestinal: Gastroesophageal Reflux, Ulcer Musculoskeletal: Arthritis Endocrine: Diabetes, Non-Insulin dep HEENT: Cataract, Glaucoma Loss of Vision: Denies Hearing Impairment: Hard of Hearing Psychosocial: Anxiety, Bipolar, Depression History of Blood Disorders: No Adverse Reaction to Blood [place]ff[place]: No Family History Reviewed Nursing Family Hx Patient reports no known family medical history. Review of Systems Constitutional: no symptoms reported EENTM: no symptoms reported Respiratory: see HPI Cardiovascular: see HPI Gastrointestinal: no symptoms reported Psychiatric/Neurological: See HPI, Anxiety Physical Exam Physical Exam Vital Signs Vital Signs - First Documented 08/31/20 08/31/20 08/31/20 21:19 21:28 23:13 Temp 36.3 Pulse 108 Resp 28 B/P (MAP) 173/127 (142) Pulse Ox 100 O2 Delivery Nasal Cannula O2 Flow Rate 100.00 FiO2 35 Capillary Refill : Less Than 3 Seconds Height, Weight, BMI Height: 5'5.00" Weight: 160lbs. 15.4oz. 73.968996ya; 25.00 BMI Method:Estimated General Appearance: Obese, Other (sedated and intubated) Neck: Limited Range of Motion Respiratory: Rales Cardiovascular: Regular Rate, Rhythm, Systolic Murmur Gastrointestinal: Normal Bowel Sounds, Soft Extremity: Pedal Edema Neurologic/Psychiatric: Other Skin: Warm/Dry, Pallor Results Results/Procedures Labs Laboratory Tests 08/31/20 21:20 09/01/20 00:20 09/01/20 02:55 Patient resulted labs reviewed. Imaging: Reviewed Imaging Report Assessment/Plan Admission Diagnosis chest pain status post heart cath without intervention Pulmonary edema with respiratory failure currently intubated Hypotension currently on pressor support Coronary artery disease with previous coronary artery bypass graft multiple stents and previous interventions-no intervention required last night Chronic renal insufficiency Obesity COPD History of bipolar disorder insulin resistance with a history of taking metformin currently being held Plan: continue current treatment and wean off pressors , then begin weaning off ventilator- prognosis guarded Admission Status: Inpatient Order (span 2 midnights) Reason for Inpatient Admission: multiple medical problems requiring intervention Clinical Quality Measures AMI/AHF: ASA po Prior to arrival: Yes DVT/VTE Risk/Contraindication: Risk Factor Score Per Nursin RFS Level Per Nursing on Admit: 4+=Very High DAIJA STATON MD Sep 01, 2020 10:09
[2020-09-01 10:56] VITALS: BP 112/67
--- NOTE | 2020-09-01 11:57 | Diagnostic Imaging Report ---
HISTORY: Central line placement. Intubated. COMPARISON: 08/31/2020. TECHNIQUE: Frontal view of the chest. FINDINGS: The endotracheal tube is 3.8 cm above the german. The right jugular line tip projects over the right atrium. Sternotomy wires and post-CABG changes are seen. An enteric tube projects over the stomach. There is increased linear opacity in the right upper lobe. No pleural effusion or pneumothorax is seen. IMPRESSION: 1. The right jugular line tip projects over the right atrium. 2. Increased linear opacity in the right upper lobe, likely due to atelectasis. Dictated by: Dictated on workstation # [id number]
[2020-09-01] MEDS ORDERED: methylPREDNISolone 40 MG/ML (Solu-MEDROL) VIAL IV SCH (12:00)
[2020-09-01] MEDS ORDERED: HEParin (CATH LAB) 1,000 ML IV ONE (12:41)
--- NOTE | 2020-09-01 13:13 | Cardiology Progress Note ---
Subjective Date Seen by Provider: Sep 01, 2020 Time Seen by Provider: 13:09 Subjective/Events-last exam Patient is intubated, ventilatory dependent Review of Systems General: Other (unable to provide review of systems) Focused Exam Lactate Level 08/31/20 21:20: Lactic Acid Level 1.59 09/01/20 00:20: Lactic Acid Level 0.34L Objective-Cardiology Exam Last Set of Vital Signs Vital Signs 09/01/20 09/01/20 09/01/20 10:56 11:58 12:00 Temp 36.6 Pulse 101 Resp 15 B/P (MAP) 110/63 Pulse Ox 98 O2 Delivery Mechanical Ventilator O2 Flow Rate 28.00 FiO2 28 Capillary Refill : Less Than 3 Seconds I&O l Intake and Output 09/01/20 00:00 Daily Weight Change Unsure/Unresponsive General: Other (sedated and intubated) HEENT: Atraumatic, PERRLA Lungs: Normal Air Movement, Other (bilateral rhonchi) Heart: Regular Rate, Normal S1, Normal S2 Abdomen: Normal Bowel Sounds Extremities: No Clubbing, No Cyanosis Skin: No Rashes Neuro: Other (sedated and intubated) Psych/Mental Status: Other (sedated and intubated) Results Lab Laboratory Tests 08/31/20 21:20 09/01/20 00:20 09/01/20 02:55 A/P-Cardiology Admission Diagnosis Acute respiratory failure Acute myocardial infarction Acute congestive heart failure Acute renal failure Assessment/Plan Acute respiratory failure, acute pulmonary edema. Ventilator dependent. Continue to monitor Coronary artery disease, extensive history with history of CABG in 2004, multiple intervention in the past, reporting that he required 17 stents. Cardiac catheterization was carried out emergently yesterday which showed occluded LAD with patent vein graft to the diagonal artery that is filling the LAD. There is another vein graft presumably to an obtuse marginal branch that is occluded. Dominant circumflex artery that has welp-nu-jatljdli disease with patent stent, the first obtuse marginal branch is occluded and appeared to be chronic total occlusion. The right coronary artery is small nondominant artery with severe stenosis at the midportion. I attempted to cross the chronically occluded vein graft without any success. I used backup balloon and used multiple different wires without the ability to cross the chronic total occlusion. Troponin level is very minimal and elevation. Will continue maximizing medical therapy Congestive heart failure, acute left ventricular systolic dysfunction, ischemic in nature, ejection fraction 30-35 percent compared to the last echo that was done 2 weeks ago with normal EF. We'll start with diuretics, try to wean him off the pressors. Hypotensive shock, started on pressors, trying to wean him off the pressors at this time Acute renal failure, continue to monitor renal function Hyperlipidemia, maintained on statin. Continue to monitor lipids COPD, managed by primary care physician Diabetes mellitus, followed and managed by primary care physician History of seizure disorder History of neurogenic bladder Clinical Quality Measures AMI/AHF: ASA po Prior to arrival: Yes DVT/VTE Risk/Contraindication: Risk Factor Score Per Nursin RFS Level Per Nursing on Admit: 4+=Very High MANE VARGAS MD Sep 01, 2020 13:13
[2020-09-01] MEDS ORDERED: FUROSEMIDE 40 MG/4 ML INJ (LASIX) IVP NR (13:15)
--- NOTE | 2020-09-01 14:20 | Consultation - Surgery ---
History of Present Illness History of Present Illness Patient Consulted On(heena/time) 09/01/20 10:14 Date Seen by Provider: Sep 01, 2020 Time Seen by Provider: 10:14 Reason for Visit: acute respiratory failure History of Present Illness Consult requested by Dr. Goodman for hypotension need for pressors poor venous access Patient is a 69-year-old male who was having chest pain and new left bundle branch block. Patient declined and had to be intubated. Patient is intubated and on pressors. Patient needing central line placement due to poor venous access at this time. Patient unable to provide any information due to being intubated and sedated. Allergies and Home Medications Allergies Coded Allergies: Penicillins (Verified Allergy, Unknown, 04/22/17) diazepam (Unverified Allergy, Unknown, 03/07/17) doxycycline (Unverified Allergy, Unknown, RASH, 03/07/17) phenobarbital (Unverified Allergy, Unknown, 03/07/17) RELAXES ME TOO MUCH piperacillin (Unverified Allergy, Unknown, RASH, PT HAS RECEIVED CEFAZOLIN IN THE PAST W/O ISSUE, 03/08/17) sulfamethoxazole (Verified Allergy, Unknown, 04/22/17) terazosin (Unverified Allergy, Unknown, 03/07/17) CHEST PAIN Home Medications Albuterol Sulfate 1 Puff Puff, 2 PUFF INH Q4H PRN for SHORTNESS OF BREATH, (Reported) Aspirin 81 Mg Tablet.dr, 81 MG PO DAILY, (Reported) Bethanechol Chloride 10 Mg Tablet, 25 MG PO BID, (Reported) Clopidogrel Bisulfate 75 Mg Tablet, 75 MG PO DAILY, (Reported) Ezetimibe 10 Mg Tablet, 10 MG PO HS, (Reported) Famotidine 20 Mg Tablet, 20 MG PO HS, (Reported) Fenofibrate Nanocrystallized 145 Mg Tablet, 145 MG PO DAILY, (Reported) Fluoxetine HCl 20 Mg Capsule, 20 MG PO DAILY Prescribed by: PHI ALVARADO on 08/19/20 1747 Fluticasone Propionate 1 Ea Aero, 1 PUFF INH BID, (Reported) Fluticasone Propionate 16 Gm [place].susp, 2 SPRAYS NS DAILY, (Reported) Furosemide 40 Mg Tablet, 40 MG PO DAILY@ Prescribed by: PHI ALVARADO on 08/20/20 1143 Gabapentin 300 Mg Capsule, 300 MG PO HS, (Reported) Lamotrigine 25 Mg Tablet, 100 MG PO BID, (Reported) Levetiracetam 500 Mg Tablet, 500 MG PO BID, (Reported) Lorazepam 1 Mg Tablet, 1 MG PO BID, (Reported) Metformin HCl 850 Mg Tablet, 850 MG PO DAILY, (Reported) Olanzapine 5 Mg Tablet, 5 MG PO HS, (Reported) Oxycodone HCl 20 Mg Tab.er.12h, 20 MG PO BID Prescribed by: CARLOS ESCOTO on 07/26/17 0946 Oxycodone HCl/Acetaminophen 1 Each Tablet, 1 TAB PO Q4H PRN for BREAKTHROUGH PAIN Prescribed by: CARLOS ESCOTO on 07/26/17 0946 Pioglitazone HCl 30 Mg Tablet, 30 MG PO DAILY, (Reported) Potassium Chloride 20 Meq Tab.er.prt, 20 MEQ PO DAILY@0700 Prescribed by: PHI ALVARADO on 08/20/20 1143 Prednisone 20 Mg Tab, 40 MG PO DAILY@0700 Prescribed by: PHI ALVARADO on 08/20/20 1154 Ramipril 5 Mg Capsule, 5 MG PO DAILY, (Reported) Simvastatin 40 Mg Tablet, 40 MG PO 1800, (Reported) Tamsulosin HCl 0.4 Mg Cap, 0.4 MG PO HS, (Reported) Temazepam 7.5 Mg Capsule, 7.5 MG PO HS PRN for INSOMNIA, (Reported) Timolol 5 Ml Drops, 1 DROP OU BID, (Reported) 0.5% Trazodone HCl 50 Mg Tablet, 50 MG PO HS, (Reported) Patient Home Medication List Home Medication List Reviewed: Yes Past Tuvrplv-Knkijw-Prcimo Hx Patient Social History Alcohol Use: Denies Use Recreational Drug Use: No Type Used: Cigarettes 2nd Hand Smoke Exposure: Yes Recent Foreign Travel: No Contact w/Someone Who Travel: No Recent Infectious Disease Expo: No Recent Hopitalizations: Yes (Discharged 07/19/2020) Immunizations Up To Date Tetanus Booster (TDap): Unknown Date of Pneumonia Vaccine: Nov 24, 2016 Date of Influenza Vaccine: Aug 08, 2012 Seasonal Allergies Seasonal Allergies: No Surgeries History of Surgeries: Yes Surgeries: Appendectomy, Cardiac, CABG, Coronary Stent, Gallbladder, Orthopedic, Penile Implant, Renal, Transurethral Resection Respiratory History of Respiratory Disorde: Yes Respiratory Disorders: Asthma, COPD, Emphysema Cardiovascular History of Cardiac Disorders: Yes (CABG [place] 1999; 16 CARDIAC STENTS) Cardiac Disorders: Chronic Edema/Swelling, Coronary Artery Disease, High Cholesterol, Hypertension Neurological History of Neurological Disord: Yes Neurological Disorders: Headaches /Migraines, Seizure Disorder Reproductive System Hx Reproductive Disorders: Yes (ED--PENILE IMPLANT) Sexually Transmitted Disease: No HIV/AIDS: No Genitourinary History of Genitourinary Disor: Yes Genitourinary Disorders: Benign Prostatic Hyperpl, Kidney Stones Gastrointestinal History of Gastrointestinal Di: Yes Gastrointestinal Disorders: Gastroesophageal Reflux, Ulcer Musculoskeletal History of Musculoskeletal Dis: Yes Musculoskeletal Disorders: Arthritis Endocrine History of Endocrine Disorders: Yes Endocrine Disorders: Diabetes, Non-Insulin dep HEENT History of HEENT Disorders: Yes HEENT Disorders: Cataract, Glaucoma Loss of Vision: Denies Hearing Impairment: Hard of Hearing Cancer History of Cancer: No Psychosocial History of Psychiatric Problem: Yes Behavioral Health Disorders: Anxiety, Bipolar, Depression Integumentary History of Skin or Integumenta: No Blood Transfusions History of Blood Disorders: No Adverse Reaction to a Blood Tr: No Reviewed Nursing Assessment Reviewed/Agree w Nursing PMH: Yes Family Medical History Significant Family History: No Pertinent Family Hx Family Medial History: Patient reports no known family medical history. Review of Systems-General ROS-Unable to Obtain: Patient intubated and sedated unable to provide. Physical Exam-General Problems Physical Exam Vital Signs Vital Signs - First Documented 08/31/20 08/31/20 08/31/20 21:19 21:28 23:13 Temp 36.3 Pulse 108 Resp 28 B/P (MAP) 173/127 (142) Pulse Ox 100 O2 Delivery Nasal Cannula O2 Flow Rate 100.00 FiO2 35 Capillary Refill : Less Than 3 Seconds General Appearance: other (Intubated and sedated) HEENT: normal ENT inspection Neck: supple, normal inspection Respiratory: other (Equal chest rise) Cardiovascular: regular rate, rhythm, no edema Gastrointestinal: non tender, soft Rectal: deferred Extremities: normal inspection, no pedal edema Neurologic/Psychiatric: No alert, No oriented x 3; other (Intubated and sedated) Skin: normal color, warm/dry Lymphatic: no adenopathy Data Review Labs Laboratory Tests 08/31/20 21:20: White Blood Count 20.0H, Red Blood Count 3.40L, Hemoglobin 8.8L, Hematocrit 27L, Mean Corpuscular Volume 81, Mean Corpuscular Hemoglobin 26, Mean Corpuscular Hemoglobin Concent 32, Red Cell Distribution Width 14.0, Platelet Count 630H, Mean Platelet Volume 8.7L, Immature Granulocyte % (Auto) 1, Neutrophils (%) (Auto) 73, Lymphocytes (%) (Auto) 19, Monocytes (%) (Auto) 7, Eosinophils (%) (Auto) 1, Basophils (%) (Auto) 0, Neutrophils # (Auto) 14.6H, Lymphocytes # (Auto) 3.7, Monocytes # (Auto) 1.4H, Eosinophils # (Auto) 0.1, Basophils # (Auto) 0.0, Immature Granulocyte # (Auto) 0.1, Neutrophils % (Manual) 77, Lymp hocytes % (Manual) 16, Monocytes % (Manual) 6, Eosinophils % (Manual) 0, Basophils % (Manual) 1, Band Neutrophils 0, Blood Morphology Comment NORMAL, Prothrombin Time 16.2H, INR Comment 1.3, Activated Partial Thromboplast Time 33, D-Dimer 0.58H, Sodium Level 129L, Potassium Level 5.7H, Chloride Level 97L, Carbon Dioxide Level 19L, Anion Gap 13, Blood Urea Nitrogen 26H, Creatinine 1.45H, Estimat Glomerular Filtration Rate 48, BUN/Creatinine Ratio 18, Glucose Level 132H, Lactic Acid Level 1.59, Calcium Level 8.9, Corrected Calcium 8.8, Magnesium Level 2.0, Total Bilirubin 0.3, Aspartate Amino Transf (AST/SGOT) 19, Alanine Aminotransferase (ALT/SGPT) 10, Alkaline Phosphatase 43, Myoglobin 46.8, Troponin I 0.205H, Total Protein 7.0, Albumin 4.1 08/31/20 21:40: Coronavirus 2019 (EMILY) Negative 08/31/20 21:45: B-Type Natriuretic Peptide 1296.0H, Triglycerides Level 74 08/31/20 21:59: Urine Color YELLOW, Urine Clarity CLEAR, Urine pH 6.0, Urine Specific [place] 1.015L, Urine Protein NEGATIVE, Urine Glucose (UA) NEGATIVE, Urine Ketones NEGATIVE, Urine Nitrite NEGATIVE, Urine Bilirubin NEGATIVE, Urine Urobilinogen 0.2, Urine Leukocyte Esterase NEGATIVE, Urine RBC (Auto) NEGATIVE, Urine RBC NONE, Urine WBC 0-2, Urine Squamous Epithelial Cells RARE, Urine Crystals NONE, Urine Bacteria NEGATIVE, Urine Casts NONE, Urine Mucus NEGATIVE, Urine Culture Indicated NO 09/01/20 00:20: Blood Gas Puncture Site RIGHT RADIAL, Blood Gas Patient Temperature 35.8, Ar terial Blood pH 7.31*L, Arterial Blood Partial Pressure CO2 41, Arterial Blood Partial Pressure O2 87, Arterial Blood HCO3 20L, Arterial Blood Total CO2 21.8, Arterial Blood Oxygen Saturation 96, Arterial Blood Base Excess -5.0L, Cj Test POSITIVE, Blood Gas Ventilator Setting YES, Blood Gas Inspired Oxygen 50%, Sodium Level 128L, Potassium Level 5.0, Chloride Level 99, Carbon Dioxide Level 18L, Anion Gap 11, Blood Urea Nitrogen 24H, Creatinine 1.30, Estimat Glomerular Filtration Rate 55, BUN/Creatinine Ratio 18, Glucose Level 192H, Lactic Acid Level 0.34L, Calcium Level 7.8L, Corrected Calcium 8.1L, Total Bilirubin 0.7, Aspartate Amino Transf (AST/SGOT) 27, Alanine Aminotransferase (ALT/SGPT) 10, Alkaline Phosphatase 37L, Troponin I 0.212H, Total Protein 6.0L, Albumin 3.6 09/01/20 02:55: Sodium Level 129L, Potassium Level 4.8, Chloride Level 98, Carbon Dioxide Level 20L, Anion Gap 11, Blood Urea Nitrogen 26H, Creatinine 1.33H, Estimat Glomerular Filtration Rate 53, BUN/Creatinine Ratio 20, Glucose Level 172H, Calcium Level 8.3L, White Blood Count 14.3H, Red Blood Count 3.19L, Hemoglobin 8.4L, Hematocrit 26L, Mean Corpuscular Volume 80, Mean Corpuscular Hemoglobin 26, Mean Corpuscular Hemoglobin Concent 33, Red Cell Distribution Width 13.9, Platelet Count 497H, Mean Platelet Volume 8.4L, Triglycerides Level 108, Cholesterol Level 107, LDL Cholesterol Direct 40, VLDL Cholesterol 22, HDL Cholesterol 48 09/01/20 11:57: Glucometer 162H Assessment/Plan Assessment/Plan Assessment/Plan Chest pain Poor venous access Respiratory failure requiring intubation Hypotension requiring pressor support Patient needing central line placement for hypotension and pressor support. Central line to be placed. Chest x-ray pending central line placement We will sign off please call if needed. Clinical Quality Measures AMI/AHF: ASA po Prior to arrival: Yes DVT/VTE Risk/Contraindication: Risk Factor Score Per Nursin RFS Level Per Nursing on Admit: 4+=Very High TONJA AVERY DO Sep 01, 2020 14:19
[2020-09-01] MEDS: CLOPIDOGREL 75 MG (PLAVIX) TABLET PO SCH (14:52)
[2020-09-01] MEDS: ASPIRIN E.C. 81 MG (ECOTRIN) TAB PO SCH (14:52)
[2020-09-01 16:07] VITALS: BP 110/63
[2020-09-01] MEDS ORDERED: ARTIFICIAL TEARS OINT (LACRI-LUBE) 3.5 GM TUBE OU PRN (18:00)
[2020-09-01 18:15] VITALS: BP 89/52
[2020-09-01] MEDS: methylPREDNISolone 40 MG/ML (Solu-MEDROL) VIAL IV SCH (20:20)
[2020-09-01 22:18] VITALS: BP 109/62
--- NOTE | 2020-09-01 22:38 | OPERATIVE REPORT ---
DATE OF SERVICE: 09/01/2020 PREOPERATIVE DIAGNOSIS: Hypotension, need for pressors per venous access. POSTOPERATIVE DIAGNOSIS: Hypotension, need for pressors per venous access. PROCEDURE: Ultrasound-guided right internal jugular vein central line placement. SURGEON: Tonja Eastman DO. ANESTHESIA: The patient is intubated and sedated. INDICATIONS: The patient is a 69-year-old male who is hypotensive and requiring pressors, he need central line placed as requested by Dr. Goodman. Consent has been obtained. TECHNIQUE: The patient was prepped and draped in sterile fashion. Timeout was performed. The right internal jugular vein was visualized using ultrasound, the right internal jugular vein was accessed, dark nonpulsatile blood was withdrawn. The guidewire was inserted through the needle and the needle was removed. A #11 blade scalpel was used to make a small skin incision at the insertion point. Dilator was then advanced over the wire and removed. The triple lumen catheter was inserted over the wire and the wire was removed. All ports were accessed and flushed without difficulty. The triple lumen catheter was secured in the usual fashion. The area was then washed and dried and sterile bandage was applied. The patient tolerated procedure well without any complications. Chest x-ray pending. Job ID: [id number] DocumentID: [id number] Dictated Date: 09/01/2020 14:27:27 Admission Nurse Coordinator Date: 09/01/2020 22:37:44 Dictated By: TONJA EASTMAN DO
--- NOTE | 2020-09-02 00:51 | NUR ---
This RN walked into patient's room as his vent was alarming. Patient had self-extubated. Placed on oxygen and sating 99%. Patient alert and oriented, slightly groggy. Propofol turned off, EICU notifed. ABG obtained from right radial artery while on 4L NC. Patient asking for water and requests to sleep. Answers all questions appropriately and follows commands. Will continue to monitor.
[2020-09-02 01:21] LABS: ABG BASE EXCESS -0.7 MMOL/L (-2.5-2.5); ABG OXYGEN SATURATION 98 % (94-100); ABG PCO2 34 MMHG (35-45); ABG PH 7.44 (7.37-7.43); ABG PO2 87 MMHG (79-93); ABG TCO2 24.2 MMOL/L (21.0-31.0)
[2020-09-02 01:24] LABS: ALLENS TEST ARTLINE; INSPIRED O2 21; VENTILATOR NO
[2020-09-02 03:32] LABS: BASOPHILS % (AUTO) 0 % (0-10); EOSINOPHILS % (AUTO) 0 % (0-10); HEMATOCRIT 24 % (40-54); HEMOGLOBIN 7.9 g/dL (13.3-17.7); LYMPHOCYTES % (AUTO) 10 % (12-44); MEAN CORPUSCULAR HEMOGLOBIN 26 pg (25-34); MEAN CORPUSCULAR HGB CONC 33 g/dL (32-36); MEAN CORPUSCULAR VOLUME 78 fL (80-99); MEAN PLATELET VOLUME 8.4 fL (9.0-12.2); MONOCYTES # (AUTO) 0.7 10^3/uL (0.0-1.0); MONOCYTES % (AUTO) 6 % (0-12); NEUTROPHILS # (AUTO) 8.4 10^3/uL (1.8-7.8); NEUTROPHILS % (AUTO) 83 % (42-75); PLATELET COUNT 338 10^3/uL (130-400); WHITE BLOOD COUNT 10.1 10^3/uL (4.3-11.0)
[2020-09-02 03:41] LABS: ALBUMIN 3.3 GM/DL (3.2-4.5); CHLORIDE 103 MMOL/L (98-107); SODIUM 135 MMOL/L (135-145)
[2020-09-02 03:42] LABS: CALCIUM 8.5 MG/DL (8.5-10.1)
[2020-09-02 03:43] LABS: GLUCOSE 139 MG/DL (70-105); TOTAL PROTEIN 5.7 GM/DL (6.4-8.2); TRIGLYCERIDES 136 MG/DL (<150)
[2020-09-02 03:44] LABS: CARBON DIOXIDE 23 MMOL/L (21-32)
[2020-09-02 03:45] LABS: BILIRUBIN,TOTAL 0.4 MG/DL (0.1-1.0)
[2020-09-02 03:47] LABS: ALKALINE PHOSPHATASE 37 U/L (40-136); GFR ESTIMATED > 60
[2020-09-02 03:48] LABS: BUN/CREATININE RATIO 18
[2020-09-02 03:49] LABS: MAGNESIUM 1.8 MG/DL (1.6-2.4)
[2020-09-02 03:50] LABS: ALANINE AMINOTRANSFERASE 10 U/L (0-55)
--- NOTE | 2020-09-02 04:27 | Pulmonary Consultation ---
NICHOLE NOLAND MED STUDENT 09/02/20 0427: History of Present Illness History of Present Illness Date Seen by Provider: Sep 02, 2020 Time Seen by Provider: 04:22 Date of Admission 08/31 Reason for Visit: acute respiratory failure History of Present Illness Pt is a 69 y/o male presenting with a CC of acute respiratory failure. Pt is unsure of what brought about the symptoms, and believed they happened spontaneously while he was just sitting in his chair. He denies aggravating and associated symptoms, and at sx onset immediately pressed his med-alert bracelet. Pt charts and notes reviewed d/t pt having some trouble answering and comprehending questions. He admits to using 2L O2 at home, but at night only. He admits to a hx of breathing. He also admitted to having 4 bypasses and 17 stents. He has a long hx of smoking 1ppd, unsure of when he first began smoking. Allergies and Home Medications Allergies Coded Allergies: Penicillins (Verified Allergy, Unknown, 04/22/17) diazepam (Unverified Allergy, Unknown, 03/07/17) doxycycline (Unverified Allergy, Unknown, RASH, 03/07/17) phenobarbital (Unverified Allergy, Unknown, 03/07/17) RELAXES ME TOO MUCH piperacillin (Unverified Allergy, Unknown, RASH, PT HAS RECEIVED CEFAZOLIN IN THE PAST W/O ISSUE, 03/08/17) sulfamethoxazole (Verified Allergy, Unknown, 04/22/17) terazosin (Unverified Allergy, Unknown, 03/07/17) CHEST PAIN Home Medications Albuterol Sulfate 1 Puff Puff, 2 PUFF INH Q4H PRN for SHORTNESS OF BREATH, (Reported) Aspirin 81 Mg Tablet.dr, 81 MG PO DAILY, (Reported) Bethanechol Chloride 10 Mg Tablet, 25 MG PO BID, (Reported) Clopidogrel Bisulfate 75 Mg Tablet, 75 MG PO DAILY, (Reported) Ezetimibe 10 Mg Tablet, 10 MG PO HS, (Reported) Famotidine 20 Mg Tablet, 20 MG PO HS, (Reported) Fenofibrate Nanocrystallized 145 Mg Tablet, 145 MG PO DAILY, (Reported) Fluoxetine HCl 20 Mg Capsule, 20 MG PO DAILY Prescribed by: PHI ALVARADO on 08/19/20 607 Fluticasone Propionate 1 Ea Aero, 1 PUFF INH BID, (Reported) Fluticasone Propionate 16 Gm [place].susp, 2 SPRAYS NS DAILY, (Reported) Furosemide 40 Mg Tablet, 40 MG PO DAILY@ Prescribed by: PHI ALVARADO on 08/20/20 1143 Gabapentin 300 Mg Capsule, 300 MG PO HS, (Reported) Lamotrigine 25 Mg Tablet, 100 MG PO BID, (Reported) Levetiracetam 500 Mg Tablet, 500 MG PO BID, (Reported) Lorazepam 1 Mg Tablet, 1 MG PO BID, (Reported) Metformin HCl 850 Mg Tablet, 850 MG PO DAILY, (Reported) Olanzapine 5 Mg Tablet, 5 MG PO HS, (Reported) Oxycodone HCl 20 Mg Tab.er.12h, 20 MG PO BID Prescribed by: CARLOS ESCOTO on 07/26/17 0946 Oxycodone HCl/Acetaminophen 1 Each Tablet, 1 TAB PO Q4H PRN for BREAKTHROUGH PAIN Prescribed by: CARLOS ESCOTO on 07/26/17 0946 Pioglitazone HCl 30 Mg Tablet, 30 MG PO DAILY, (Reported) Potassium Chloride 20 Meq Tab.er.prt, 20 MEQ PO DAILY@0700 Prescribed by: PHI ALVARADO on 08/20/20 1143 Prednisone 20 Mg Tab, 40 MG PO DAILY@0700 Prescribed by: PHI ALVARADO on 08/20/20 1154 Ramipril 5 Mg Capsule, 5 MG PO DAILY, (Reported) Simvastatin 40 Mg Tablet, 40 MG PO 1800, (Reported) Tamsulosin HCl 0.4 Mg Cap, 0.4 MG PO HS, (Reported) Temazepam 7.5 Mg Capsule, 7.5 MG PO HS PRN for INSOMNIA, (Reported) Timolol 5 Ml Drops, 1 DROP OU BID, (Reported) 0.5% Trazodone HCl 50 Mg Tablet, 50 MG PO HS, (Reported) Past Aazkorp-Jiwnsd-Vlkcjv Hx Past Med/Social Hx: Reviewed Nursing Past Med/Soc Hx Patient Social History Alcohol Use: Denies Use Recreational Drug Use: No Type Used: Cigarettes (1 ppd, many years (pt doesn't remember when he started smoking)) 2nd Hand Smoke Exposure: Yes Recent Foreign Travel: No Contact w/Someone Who Travel: No Recent Infectious Disease Expo: No Recent Hopitalizations: Yes (Discharged 07/19/2020) Immunizations Up To Date Tetanus Booster (TDap): Unknown Date of Pneumonia Vaccine: Nov 24, 2016 Date of Influenza Vaccine: Aug 08, 2012 Seasonal Allergies Seasonal Allergies: No Past Medical History Surgeries: Yes Appendectomy, Cardiac, CABG, Coronary Stent, Gallbladder, Orthopedic, Penile Imp lant, Renal, Transurethral Resection Respiratory: Yes Asthma, COPD, Emphysema Currently Using CPAP: No Currently Using BIPAP: No Cardiac: Yes (CABG [place] 1999; 16 CARDIAC STENTS) Chronic Edema/Swelling, Coronary Artery Disease, High Cholesterol, Hypertension Neurological: Yes Headaches /Migraines, Seizure Disorder Reproductive Disorders: Yes (ED--PENILE IMPLANT) Sexually Transmitted Disease: No HIV/AIDS: No Genitourinary: Yes Benign Prostatic Hyperpl, Kidney Stones Gastrointestinal: Yes Gastroesophageal Reflux, Ulcer Musculoskeletal: Yes Arthritis Endocrine: Yes Diabetes, Non-Insulin dep HEENT: Yes Cataract, Glaucoma Loss of Vision: Denies Hearing Impairment: Hard of Hearing Cancer: No Psychosocial: Yes Anxiety, Bipolar, Depression Integumentary: No Blood Disorders: No Adverse Reaction/Blood Tranf: No Family Medical History Reviewed Nursing Family Hx Patient reports no known family medical history. No Pertinent Family Hx Review of Systems Constitutional: No: Fever, Chills Respiratory: Shortness of breath; No: Wheezing Cardiovascular: Edema; No: Chest Pain Gastrointestinal: Abdominal Pain; No: Nausea Sepsis Event Evaluation Height, Weight, BMI Height: 5'5.00" Weight: 160lbs. 15.4oz. 73.290250cj; 25.00 BMI Method:Estimated Exam Exam Vital Signs Date Time Temp Pulse Resp B/P (MAP) Pulse Ox O2 Delivery O2 Flow Rate FiO2 09/02/20 04:00 71 19 127/72 99 High Flow N/C 3.00 09/02/20 03:00 84 16 121/58 98 High Flow N/C 3.00 09/02/20 02:13 78 22 100 High Flow N/C 3.00 09/02/20 02:00 79 17 122/69 100 Nasal Cannula 4.00 09/02/20 01:00 96 15 125/71 99 Nasal Cannula 4.00 09/02/20 01:00 96 09/02/20 00:52 100 93 Nasal Cannula 4.00 09/02/20 00:19 105/57 09/02/20 00:18 36.0 92 33 105/57 94 Mechanical Ventilator 21.00 09/02/20 00:00 91 15 105/63 99 Mechanical Ventilator 28.00 09/01/20 23:00 96 15 111/64 98 Mechanical Ventilator 28.00 09/01/20 22:18 96 16 97 28 09/01/20 22:00 95 15 106/62 97 Mechanical Ventilator 28.00 09/01/20 21:00 28 Mechanical Ventilator 09/01/20 21:00 105 24 110/62 96 Mechanical Ventilator 28.00 09/01/20 20:30 104 16 111/61 97 Mechanical Ventilator 28.00 09/01/20 20:20 107/95 09/01/20 20:02 77/52 09/01/20 20:00 36.7 09/01/20 19:58 101 25 90/52 97 Mechanical Ventilator 28.00 09/01/20 19:00 100 09/01/20 19:00 100 25 85/52 97 Mechanical Ventilator 28.00 09/01/20 18:15 103 16 96 28 09/01/20 18:00 104 15 91/52 96 Mechanical Ventilator 28.00 09/01/20 17:51 100 88/53 09/01/20 17:51 101 107/59 09/01/20 17:00 101 107/59 98 Mechanical Ventilator 28.00 09/01/20 16:07 87 16 98 28 09/01/20 16:00 98 110/63 98 Mechanical Ventilator 28.00 09/01/20 16:00 36.8 09/01/20 15:00 95 16 105/57 97 Mechanical Ventilator 28.00 09/01/20 14:00 97 15 99/60 98 Mechanical Ventilator 28.00 09/01/20 13:00 101 09/01/20 13:00 98 14 104/63 99 Mechanical Ventilator 28.00 09/01/20 12:00 101 15 110/63 98 Mechanical Ventilator 28.00 09/01/20 11:58 36.6 09/01/20 11:00 101 18 120/69 97 Mechanical Ventilator 28.00 09/01/20 10:56 101 16 96 28 09/01/20 10:48 101 09/01/20 10:00 103 17 113/67 96 Mechanical Ventilator 28.00 09/01/20 09:00 105 21 115/66 96 Mechanical Ventilator 28.00 09/01/20 08:19 98 96/60 09/01/20 08:00 81 13 113/63 97 Mechanical Ventilator 28.00 09/01/20 08:00 28 Mechanical Ventilator 09/01/20 07:00 81 18 113/67 95 Mechanical Ventilator 28.00 09/01/20 07:00 104 09/01/20 06:00 70 18 72/47 100 Mechanical Ventilator 28.00 09/01/20 05:39 Mechanical Ventilator 28.00 09/01/20 05:00 96 12 97/63 96 Mechanical Ventilator 30.00 I & O 09/02/20 07:00 Intake Total 1100 ml Output Total 3350 ml Balance -2250 ml Height & Weight Height: 5'5.00" Weight: 160lbs. 15.4oz. 73.285692ez; 25.00 BMI Method:Estimated General Appearance: No Apparent Distress, WD/WN HEENT: PERRL/EOMI, Pharynx Normal Respiratory: Chest Non Tender, Rales (Left lower lobe) Cardiovascular: Regular Rate, Rhythm, No Gallop, No JVD, Normal Peripheral Pulses, Systolic Murmur Capillary Refill: Less Than 3 Seconds Peripheral Pulses: 2+ Dorsalis Pedis (R), 2+ Left Dors-Pedis (L), 2+ Radial Pulses (R), 2+ Radial Pulses (L) Gastrointestinal: normal bowel sounds, non tender, soft, no organomegaly, no pulsatile mass Extremity: Normal Capillary Refill, Non Tender, No Calf Tenderness, Pedal Edema Neurologic/Psychiatric: Alert, Oriented x3, Other Skin: Normal Color, Cool (feet were cold), Pallor Lymphatic: No Adenopathy Results Lab Laboratory Tests 08/31/20 21:20 09/01/20 00:20 09/01/20 02:55 09/02/20 03:21 Assessment/Plan Assessment/Plan Acute respiratory failure, acute pulmonary edema -pt currently extubated -pt on flovent -CXR reviewed- left lower pleural effusion -monitor, breathing treatments prn New-onset left bundle branch block -cardiac consult -monitor -serial troponins relatively stable -s/p emergency cardiac catheterization -s/p CABG 2004 -complex cardiac history, currently being followed by Dr. Goodman -primary psych nurse is Dr. Elvin RANDHAWA-19 R/O -negative rapid Acute renal failure -IV fluids -monitor Hyperlipidemia -Statin, -monitor lipids HTN hx -currently normotensive, -monitor -PRN COPD -currently on flovent -monitor Diabetic -monitor blood glucose -ISS Epilepsy -fall risk -monitor Neurogenic bladder -sanchez catheter in place DVT and GI prophylaxis -pt on plavix, aspirin and lovenox -Protonix EVANS BARNEY DO 09/02/20 0531: Allergies and Home Medications Allergies Coded Allergies: Penicillins (Verified Allergy, Unknown, 04/22/17) diazepam (Unverified Allergy, Unknown, 03/07/17) doxycycline (Unverified Allergy, Unknown, RASH, 03/07/17) phenobarbital (Unverified Allergy, Unknown, 03/07/17) RELAXES ME TOO MUCH piperacillin (Unverified Allergy, Unknown, RASH, PT HAS RECEIVED CEFAZOLIN IN THE PAST W/O ISSUE, 03/08/17) sulfamethoxazole (Verified Allergy, Unknown, 04/22/17) terazosin (Unverified Allergy, Unknown, 03/07/17) CHEST PAIN Home Medications Albuterol Sulfate 1 Puff Puff, 2 PUFF INH Q4H PRN for SHORTNESS OF BREATH, (Reported) Aspirin 81 Mg Tablet.dr, 81 MG PO DAILY, (Reported) Bethanechol Chloride 10 Mg Tablet, 25 MG PO BID, (Reported) Clopidogrel Bisulfate 75 Mg Tablet, 75 MG PO DAILY, (Reported) Ezetimibe 10 Mg Tablet, 10 MG PO HS, (Reported) Famotidine 20 Mg Tablet, 20 MG PO HS, (Reported) Fenofibrate Nanocrystallized 145 Mg Tablet, 145 MG PO DAILY, (Reported) Fluoxetine HCl 20 Mg Capsule, 20 MG PO DAILY Prescribed by: PHI ALVARADO on 08/19/20 1747 Fluticasone Propionate 1 Ea Aero, 1 PUFF INH BID, (Reported) Fluticasone Propionate 16 Gm [place].susp, 2 SPRAYS NS DAILY, (Reported) Furosemide 40 Mg Tablet, 40 MG PO DAILY@ Prescribed by: PHI ALVARADO on 08/20/20 1143 Gabapentin 300 Mg Capsule, 300 MG PO HS, (Reported) Lamotrigine 25 Mg Tablet, 100 MG PO BID, (Reported) Levetiracetam 500 Mg Tablet, 500 MG PO BID, (Reported) Lorazepam 1 Mg Tablet, 1 MG PO BID, (Reported) Metformin HCl 850 Mg Tablet, 850 MG PO DAILY, (Reported) Olanzapine 5 Mg Tablet, 5 MG PO HS, (Reported) Oxycodone HCl 20 Mg Tab.er.12h, 20 MG PO BID Prescribed by: CARLOS ESCOTO on 07/26/17945 Oxycodone HCl/Acetaminophen 1 Each Tablet, 1 TAB PO Q4H PRN for BREAKTHROUGH PAIN Prescribed by: CARLOS ESCOTO on 07/26/17945 Pioglitazone HCl 30 Mg Tablet, 30 MG PO DAILY, (Reported) Potassium Chloride 20 Meq Tab.er.prt, 20 MEQ PO DAILY@0700 Prescribed by: PHI ALVARADO on 08/20/20 1143 Prednisone 20 Mg Tab, 40 MG PO DAILY@0700 Prescribed by: PHI ALVARADO on 08/20/20 1154 Ramipril 5 Mg Capsule, 5 MG PO DAILY, (Reported) Simvastatin 40 Mg Tablet, 40 MG PO 1800, (Reported) Tamsulosin HCl 0.4 Mg Cap, 0.4 MG PO HS, (Reported) Temazepam 7.5 Mg Capsule, 7.5 MG PO HS PRN for INSOMNIA, (Reported) Timolol 5 Ml Drops, 1 DROP OU BID, (Reported) 0.5% Trazodone HCl 50 Mg Tablet, 50 MG PO HS, (Reported) Past Hmewima-Mbthgw-Hkiozc Hx Family Medical History Patient reports no known family medical history. Review of Systems Time Seen by Provider: 05:31 Assessment/Plan Assessment/Plan Acute respiratory failure, acute pulmonary edema -Self extubated this morning -Currenlty on 2 liters NC -COVID is negative -pt on flovent -CXR reviewed- left lower pleural effusion -monitor, breathing treatments prn New-onset left bundle branch block -cardiac consult -monitor -s/p emergency cardiac catheterization -s/p CABG 2004 -complex cardiac history, currently being followed by Dr. Maxine RANDHAWA-19 R/O -negative rapid Acute renal failure -IV fluids -monitor Hyperlipidemia -Statin, -monitor lipids HTN hx -currently normotensive, -monitor -PRN COPD -currently on flovent -monitor Diabetic -monitor blood glucose -ISS Epilepsy -fall risk -monitor Neurogenic bladder -sanchez catheter in place DVT and GI prophylaxis -pt on plavix, aspirin and lovenox -Protonix NICHOLE NOLAND STUDENT Sep 02, 2020 04:27 EVANS BARNEY DO Sep 02, 2020 05:31
[2020-09-02] MEDS: NOREPINEPHRINE 4 MG/250 ML 250 ML IV SCH (04:28)
[2020-09-02] MEDS: methylPREDNISolone 40 MG/ML (Solu-MEDROL) VIAL IV SCH ×5 (04:49→23:50)
--- NOTE | 2020-09-02 07:31 | Diagnostic Imaging Report ---
EXAMINATION: Chest 1 view HISTORY: RESP Distress, post CATH COMPARISON: Chest radiograph 09/01/2020 FINDINGS: Surgical changes from CABG. Heart size and pulmonary vasculature is stable. Interval removal of the endotracheal tube and enteric catheter. Right IJ central line is unchanged. Stable opacities of the right upper lung. No pneumothorax. No pleural effusion. The osseous structures are intact. IMPRESSION: 1. Stable right upper lung opacities. 2. Interval removal of the endotracheal tube and enteric catheter. No pneumothorax. Dictated by: Dictated on workstation # [id number]
[2020-09-02] MEDS: PANTOPRAZOLE 40 MG (PROTONIX) VIAL IV SCH (09:52)
[2020-09-02] MEDS: ASPIRIN E.C. 81 MG (ECOTRIN) TAB PO SCH (09:52)
[2020-09-02] MEDS: CLOPIDOGREL 75 MG (PLAVIX) TABLET PO SCH (09:52)
[2020-09-02] MEDS ORDERED: FUROSEMIDE 40 MG/4 ML INJ (LASIX) IVP ONE (10:00)
--- NOTE | 2020-09-02 10:01 | Cardiology Progress Note ---
Subjective Date Seen by Provider: Sep 02, 2020 Time Seen by Provider: 10:00 Subjective/Events-last exam Patient self extubated, seen in stepdown room, feeling better, laying down comfortably, mild dyspnea. Not using any oxygen. Review of Systems General: No Chills, No Night Sweats, No Fatigue, No Malaise, No Appetite, No Other HEENT: No Head Aches, No Visual Changes, No Eye Pain, No Ear Pain, No Dysphasia, No Sinus Congestion, No Post Nasal Drip, No Sore Throat, No Other Pulmonary: No Dyspnea, No Cough, No Pleuritic Chest Pain, No Other Cardiovascular: No: Chest Pain, Palpitations, Orthopnea, Paroxysmal Noc. Dyspnea, Edema, Lt Headedness, Other Focused Exam Lactate Level 08/31/20 21:20: Lactic Acid Level 1.59 09/01/20 00:20: Lactic Acid Level 0.34L Objective-Cardiology Exam Last Set of Vital Signs Vital Signs 09/01/20 09/02/20 09/02/20 22:18 04:52 06:00 Temp 36.9 Pulse 73 Resp 22 B/P (MAP) 138/67 Pulse Ox 95 O2 Delivery High Flow N/C O2 Flow Rate 2.00 FiO2 28 Capillary Refill : Less Than 3 Seconds I&O Intake and Output 09/02/20 00:00 Intake Total 1100 ml Output Total 5550 ml Balance -4450 ml Intake Oral 0 ml IV Total 1100 ml Output Urine Total 5550 ml General: Alert, Oriented X3, Cooperative HEENT: Atraumatic, PERRLA Neck: Supple, No JVD Lungs: Normal Air Movement, Other (bilateral rhonchi) Heart: Regular Rate, Normal S1, Normal S2 Abdomen: Normal Bowel Sounds Extremities: No Clubbing, No Cyanosis Skin: No Rashes Neuro: Normal Speech Psych/Mental Status: Mental Status NL, Mood NL Results Lab Laboratory Tests 09/02/20 03:21 A/P-Cardiology Admission Diagnosis Acute respiratory failure Acute myocardial infarction Acute congestive heart failure Acute renal failure Assessment/Plan Status post acute respiratory failure with flash pulmonary edema, extubated and doing well at this time. I will give additional dose of Lasix. Coronary artery disease, extensive history with history of CABG in 2004, multiple intervention in the past, reporting that he required 17 stents. Cardiac catheterization was carried out emergently yesterday which showed occluded LAD with patent vein graft to the diagonal artery that is filling the LAD. There is another vein graft presumably to an obtuse marginal branch that is occluded. Dominant circumflex artery that has kpdo-xg-ntaiettc disease with patent stent, the first obtuse marginal branch is occluded and appeared to be chronic total occlusion. The right coronary artery is small nondominant artery with severe stenosis at the midportion. I attempted to cross the chronically occluded vein graft without any success. I used backup balloon and used multiple different wires without the ability to cross the chronic total occlusion. Troponin level is very minimal and elevation. Continue on aspirin and Plavix Congestive heart failure, acute left ventricular systolic dysfunction, ischemic in nature, ejection fraction 30-35 percent compared to the last echo that was done 2 weeks ago with normal EF. I am planning to start on low-dose beta blockers and JOSE inhibitor Hypotensive shock, better at this time, monitor blood pressure Acute renal failure, improved, continue to monitor renal function Hyperlipidemia, maintained on statin. Continue to monitor lipids COPD, managed by primary care physician Diabetes mellitus, followed and managed by primary care physician History of seizure disorder History of neurogenic bladder Clinical Quality Measures AMI/AHF: ASA po Prior to arrival: Yes DVT/VTE Risk/Contraindication: Risk Factor Score Per Nursin RFS Level Per Nursing on Admit: 4+=Very High MANE VARGAS MD Sep 02, 2020 10:01 am
[2020-09-02] MEDS ORDERED: DIPH25TA65 PO (11:29)
[2020-09-02] MEDS ORDERED: LAMO100T5 PO (11:29)
[2020-09-02] MEDS ORDERED: OXYC-464 PO (11:29)
[2020-09-02] MEDS ORDERED: FLUO20CA46 PO (11:29)
[2020-09-02] MEDS ORDERED: ONDA4TAB11 PO (11:29)
[2020-09-02] MEDS ORDERED: POLY17PO6 PO (11:29)
[2020-09-02] MEDS ORDERED: NITR100C10 PO (11:29)
[2020-09-02] MEDS ORDERED: NALO4SPR NS (11:29)
[2020-09-02] MEDS ORDERED: POTA20TA15 PO (11:29)
[2020-09-02] MEDS ORDERED: LORA10TA7 PO (11:29)
[2020-09-02] MEDS ORDERED: FURO40TA4 PO (11:29)
[2020-09-02] MEDS ORDERED: MAGN250T13 PO (11:29)
[2020-09-02] MEDS ORDERED: DOCU100C37 PO (11:29)
[2020-09-02] MEDS ORDERED: MELO15TA39 PO (11:29)
[2020-09-02] MEDS ORDERED: LORA-405 PO ×2 (11:29)
[2020-09-02] MEDS ORDERED: OXYC20TA54 PO (11:29)
[2020-09-02] MEDS ORDERED: GABA300C PO (11:29)
[2020-09-02] MEDS ORDERED: CLOT15CR28 TP (11:29)
[2020-09-02] MEDS ORDERED: ACET-2267 PO (11:29)
--- NOTE | 2020-09-02 11:33 | NUR ---
SPOKE WITH THE PT, HE WAS NOT ABLE TO GIVE ME ANY INFORMATION ABOUT HIS MEDICATIONS BUT DID SAY HE HAS HOME HEALTH THRU [facility] AND THEY SET UP HIS MEDICATIONS. I CALLED [facility] AND HAD THEM FAX ME A MEDICATION AND WENT THRU THE EXT MED HISTORY TO COMPLETE THE MED REC ON THE MEDICATION LIST FROM [facility] IT HAS FUROSEMIDE 40MG DAILY, HOWEVER THE LAST TIME THE PT WAS DISCHARGED THEY HAD DIRECTIONS OF 40MG BID. I CALLED [facility] AND SPOKE WITH HIS NURSE SULLY AND WAS TOLD HE IS STILL JUST TAKING 1 TAB DAILY OXYCODONE: STRENGTH ON THE MED LIST IS 5/325MG HOWEVER THE 7.5/325MG WAS LAST FILLED, THEREFORE THE 7.5/325MG IS WHAT I ENTERED ON THE MED REC
--- NOTE | 2020-09-02 11:54 | Physical Therapy Evaluation ---
PT Evaluation-General Medical Diagnosis Admission Date August 31, 2020 Medical Diagnosis: STEMI Onset Date: Aug 31, 2020 Therapy Diagnosis Therapy Diagnosis: generalized weakness/debility Height/Weight Height (Feet): 5 Height (Inches): 5.00 Weight (Pounds): 160 Weight (Ounces): 15.4 Precautions Precautions/Isolations: Airborne Isolation, Fall Prevention, Standard Precautions Referral Physician: Neda Reason for Referral: Evaluation/Treatment Medical History Pertinent Medical History: Arthritis, CABG, CAD, COPD, DM, GERD, HTN, [place], Smoking Additional Medical History seizure disorder Current History EMS secondary to CP and SOA Reviewed History: Yes Social History Home: Single Level Current Living Status: caregivers Entry Into Home: Level Entry Prior Prior Level of Function SCALE: Activities may be completed with or without assistive devices. 1-Piebibfgue-nmnblih completes the activity by him/herself with no assistance from a helper. 5-Set-up or Clean-up Assistance-helper sets up or cleans up; patient completes activity. Orange assists only prior to or following the activity. 4-Supervision or Touching Assistance-helper provides verbal cues and/or touching/steadying and/or contact guard assistance as patient completes activity. Assistance may be provided throughout the activity or intermittently. 3-Partial/Moderate Assistance-helper does LESS THAN HALF the effort. Orange lifts, holds or supports trunk or limbs, but provides less than half the effort. 2-Substantial/Maximal Assistance-helper does MORE THAN HALF the effort. Orange lifts or holds trunk or limbs and provides more than half the effort. 1-Odcpbyibf-duuupf does ALL the effort. Patient does none of the effort to complete the activity. Or, the assistance of 2 or more helpers is required for the patient to complete the activity. If activity was not attempted, code reason: 7-Patient Refused. 9-Not Applicable-not attempted and the patient did not perform the activity before the current illness, exacerbation or injury. 10-Not Attempted due to Environmental Limitations-(lack of equipment, weather restraints, etc.). 88-Not Attempted due to Medical Conditions or Safety Concerns. Bed Mobility: 5 Transfers (B,C,W/C): 5 Gait: 5 Indoor Mobility (Ambulation): Independent Prior Devices Use: Walker PT Evaluation-Current Subjective Patient reluctantly agrees to PT. Multiple attachments Objective Patient Orientation: Normal For Age Attachments: [place] Catheter telemetry, SAO2 monitor, BP ROM/Strength ROM Lower Extremities bilateral LE WFL Strength Lower Extremities 4-/5 grossly bilateral LE Integumentary/Posture Integumentary refer to nursing notes Bladder Incontinence: [place] Cath Posture kyphotic Neuromuscular (Tone, Coordination, Reflexes) grossly intact Sensory Vision: Functional Hearing: Impaired Transfers Lying to Sitting/Side of Bed(Q: 5 Sit to Stand (QC): 4 Chair/Jkp-bq-Tnnji Xfer(QC): 4 Gait Does the Patient Walk?: Yes Mode of Locomotion: Walk Anticipated Mode of Locomotion: Walk Distance: 5' Gait Assistive Device: FWW Balance Sitting Static: Normal Sitting Dynamic: Normal Standing Static: Fair Standing Dynamic: Fair Assessment/Needs 69 y.o. male, will benefit from skilled PT to address functional strength and mobility to improve current LOF to safely return to home with caregivers at maximum LOF. 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 Goals Nursing Home Goals PT Nursing Home Goals Time Frame: Sep 14, 2020 Roll Left & Right (QC): 5 Sit to Lying (QC): 5 Lying-Sitting on Side/Bed(QC): 5 Sit to Stand (QC): 5 Chair/Qbq-rz-Mofms Xfer(QC): 5 Toilet Transfer (QC): 5 Does the Patient Walk: Yes Walk 10 feet (QC): 5 Walk 50ft with 2 Turns (QC): 5 Walk 150 ft (QC): 5 PT Plan Problem List Problem List: Activity Tolerance, Functional Strength, Safety, Balance, Gait, Transfer Treatment/Plan Treatment Plan: Continue Plan of Care Treatment Plan: Bed Mobility, Education, Functional Activity Daniel, Functional Strength, Gait, Safety, Therapeutic Exercise, Transfers Treatment Duration: Sep 14, 2020 Frequency: 6 times per week Estimated Hrs Per Day: .25 hour per day Patient and/or Family Agrees t: Yes Time/GCodes Time In: 1115 Time Out: 1125 Total Billed Treatment Time: 10 Total Billed Treatment 1 visit EVModC 10 min MINERVA STEWART PT Sep 02, 2020 11:54
--- NOTE | 2020-09-02 13:27 | Progress Note ---
Subjective Subjective/Events-last exam Patient doing much better this AM. Extubated early this AM. Breathing improved. Tolerating CLD. Review of Systems Pulmonary: Dyspnea Cardiovascular: Edema; No: Chest Pain, Palpitations Neurological: Weakness, Incoordination Focused Exam Lactate Level 08/31/20 21:20: Lactic Acid Level 1.59 09/01/20 00:20: Lactic Acid Level 0.34L Objective Exam Last Set of Vital Signs Vital Signs Date Time Temp Pulse Resp B/P (MAP) Pulse Ox O2 Delivery O2 Flow Rate FiO2 09/02/20 13:00 78 09/02/20 12:03 36.4 20 134/71 100 Room Air 2.00 09/01/20 22:18 28 Capillary Refill : Less Than 3 Seconds I&O Intake and Output 09/02/20 00:00 Intake Total 1100 ml Output Total 5550 ml Balance -4450 ml Intake Oral 0 ml IV Total 1100 ml Output Urine Total 5550 ml General: Alert, Cooperative, Mild Distress (with conversational dyspnea) HEENT: Mucous Memb Moist/[place] Lungs: Clear to Auscultation, Normal Air Movement Heart: Regular Rate, No Murmurs Abdomen: Normal Bowel Sounds, Soft, No Tenderness Extremities: Other (1+ pitting edema) Skin: No Rashes, No Breakdown Neuro: Other (LE strength 4/5 bilaterally) Psych/Mental Status: Mood NL Results/Procedures Lab Laboratory Tests 09/01/20 18:04: Glucometer 171H 09/02/20 00:02: Glucometer 172H 09/02/20 01:08: Blood Gas Puncture Site ARTLINE, Blood Gas Patient Temperature UNKNOWN, Arterial Blood pH 7.44H, Arterial Blood Partial Pressure CO2 34L, Arterial Blood Partial Pressure O2 87, Arterial Blood HCO3 23, Arterial Blood Total CO2 24.2, Arterial Blood Oxygen Saturation 98, Arterial Blood Base Excess -0.7, Cj Test ARTLINE, Blood Gas Ventilator Setting NO, Blood Gas Inspired Oxygen 21 09/02/20 03:21: White Blood Count 10.1, Red Blood Count 3.07L, Hemoglobin 7.9L, Hematocrit 24L, Mean Corpuscular Volume 78L, Mean Corpuscular Hemoglobin 26, Mean Corpuscular Hemoglobin Concent 33, Red Cell Distribution Width 13.7, Platelet Count 338, Mean Platelet Volume 8.4L, Immature Granulocyte % (Auto) 1, Neutrophils (%) (Auto) 83H, Lymphocytes (%) (Auto) 10L, Monocytes (%) (Auto) 6, Eosinophils (%) (Auto) 0, Basophils (%) (Auto) 0, Neutrophils # (Auto) 8.4H, Lymphocytes # (Auto) 1.0, Monocytes # (Auto) 0.7, Eosinophils # (Auto) 0.0, Basophils # (Auto) 0.0, Immature Granulocyte # (Auto) 0.1, Sodium Level 135, Potassium Level 4.0, Chloride Level 103, Carbon Dioxide Level 23, Anion Gap 9, Blood Urea Nitrogen 16, Creatinine 0.90, Estimat Glomerular Filtration Rate > 60, BUN/Creatinine Ratio 18, Glucose Level 139H, Calcium Level 8.5, Corrected Calcium 9.1, Phosph orus Level 4.0, Magnesium Level 1.8, Total Bilirubin 0.4, Aspartate Amino Transf (AST/SGOT) 21, Alanine Aminotransferase (ALT/SGPT) 10, Alkaline Phosphatase 37L, Troponin I 0.238H, Total Protein 5.7L, Albumin 3.3, Triglycerides Level 136 Microbiology 08/31/20 Blood Culture - Preliminary, Resulted No growth Assessment/Plan Assessment/Plan (1) STEMI (ST elevation myocardial infarction) Status: Acute Assessment & Plan: 09/02: Cardiology consulted, patient had Cath by Dr Goodman, maximize medical management (2) Acute respiratory failure Status: Chronic Assessment & Plan: 09/02: Patient extubated this AM, bedside swallow pending Qualifiers: Qualified Codes: J96.01 - Acute respiratory failure with hypoxia (3) Acute renal failure (ARF) Status: Resolved (4) Microcytic anemia Assessment & Plan: 09/02: Will get Iron studies, Hemoccult stool, no signs of acute bleeding at this time (5) Acute systolic (congestive) heart failure Status: Acute Assessment & Plan: 09/02: Previous echo with compensated EF, Now decreased at 30%, Cardiology managing, appreciate recommendations (6) CAD (coronary artery disease) Status: Chronic (7) HLD (hyperlipidemia) Status: Chronic Qualifiers: Qualified Codes: E78.5 - Hyperlipidemia, unspecified (8) DVT prophylaxis Status: Acute Clinical Quality Measures AMI/AHF: ASA po Prior to arrival: Yes DVT/VTE Risk/Contraindication: Risk Factor Score Per Nursin RFS Level Per Nursing on Admit: 4+=Very High GAULT,VANCE R MD Sep 02, 2020 13:27
[2020-09-02] MEDS: LEVETIRACETAM 500 MG (KEPPRA) TAB PO SCH ×2 (14:09→20:42)
--- NOTE | 2020-09-02 14:10 | Occupational Therapy Eval ---
OT Evaluation-General/PLF Medical Diagnosis Admission Date Medical Diagnosis: STEMI Onset Date: Aug 31, 2020 Therapy Diagnosis Therapy Diagnosis: decreased ADL status, weakness Height/Weight Height (Feet): 5 Height (Inches): 5.00 Weight (Pounds): 160 Weight (Ounces): 15.4 Precautions Precautions/Isolations: Airborne Isolation, Fall Prevention, Standard Precautions Referral Physician: Neda Referral Reason: Evaluation/Treatment Medical History Pertinent Medical History: Arthritis, CABG, CAD, COPD, DM, GERD, HTN, [place], Smoking Social History Home: Single Level Current Living Status: caregivers Entry Into Home: Level Entry ADL-Prior Level of Function SCALE: Activities may be completed with or without assistive devices. 8-Mggzrqoshp-egufnln completes the activity by him/herself with no assistance from a helper. 5-Set-up or Clean-up Assistance-helper sets up or cleans up; patient completes activity. [place] assists only prior to or following the activity. 4-Supervision or Touching Assistance-helper provides verbal cues and/or touching/steadying and/or contact guard assistance as patient completes activity. Assistance may be provided throughout the activity or intermittently. 3-Partial/Moderate Assistance-helper does LESS THAN HALF the effort. [place] lifts, holds or supports trunk or limbs, but provides less than half the effort. 2-Substantial/Maximal Assistance-helper does MORE THAN HALF the effort. [place] lifts or holds trunk or limbs and provides more than half the effort. 1-Fpksdvbca-tbzhla does ALL the effort. Patient does none of the effort to complete the activity. Or, the assistance of 2 or more helpers is required for the patient to complete the activity. If activity was not attempted, code reason: 7-Patient Refused. 9-Not Applicable-not attempted and the patient did not perform the activity bef ore the current illness, exacerbation or injury. 10-Not Attempted due to Environmental Limitations-(lack of equipment, weather r estraints, etc.). 88-Not Attempted due to Medical Conditions or Safety Concerns. ADL PLOF Comments Pt indicates he lives alone at home with 4 dogs, upon further questioning, pt indicates he has caregiver assistance throughout the day. Pt indicates caregivers/home health assist him from 9 AM-8PM and 10PM-4AM. Pt has assistance with cooking, cleaning, bathing and dressing. Pt does not cook meals himself, but if needed he would be able to make himself a sandwich. Pt typically uses a w/c for functional mobility but has a walker to use if needed. He has a shower and a tub, but typically uses the shower with a shower chair. Self Care: Needed Some Help Functional Cognition: Independent OT Current Status Subjective Pt seated in recliner, lunch tray in front of him untouched. Pt agreeable to OT evaluation and tx. Mental Status/Objective Attachments: Ulloa Catheter, Oxygen, Other-See Comments (SAO2 Monitor) Current Glasses/Contacts: Yes Hearing Aids: Yes Dentures/Partials: Yes Hand Dominance: Right Upper Extremity ROM WFL, BUE shoulder flexion to approx 150 degrees. Upper Extremity Coordination WFL Upper Extremity Sensation pt denies tingling/numbness BUEs Upper Extremity Strength grossly 4/5 BUEs ADL-Treatment Eating (QC): 4 Other Treatments Pt seated in recliner, agreeable to OT Tx. OT educated pt on purpose and benefits of OT, he provided information about PLOF and home set up as well as participated in UE screen. Pt's lunch tray sitting in front of him on tray table. OT asked pt if he was hungry informing him his lunch was in front of him. OT placed tray closer to pt and took lid off of food, pt able to reach forward with his hands and tear off a piece of food to bring to his mouth to taste. Pt returned piece of food to tray stating he did not like the taste of hospital food. OT encouraged pt to eat other items on tray such as mandarin oranges, broccoli and salad but pt declined stating he does not like veggies. OT asked pt if he would like a sandwich, pt debated back and forth. OT called dietary for pt and requested a ham sandwich per pt's request. Pt states he wants to call his sister Hellen Veloz, but unable to recall her phone number. OT notified nurse of pt's request and nurse states she will assist pt later. Throughout session, pt's O2 sat dropped into the 80%'s, pt cued to take deep breaths, O2 returned to 90%'s within a couple seconds each time. Pt unaware of what the "beeping" was when O2 dropped, but throughout session he was able to take deep breaths when he heard the beeping. Post OT tx, pt seated in recliner, call light in reach and all needs met. Education OT Patient Education: Correct positioning, Modified ADL techniques, Progress toward Goal/Update tx plan, Purpose of tx/functional activities, Rehab process, Safety issues, Transfer techniques Teaching Recipient: Patient Teaching Methods: Discussion Response to Teaching: Verbalize Understanding OT Mcc Goals Director Of [employer]anthropy Goals Time Frame: Sep 11, 2020 Eating (QC): 5 Oral Hygiene (QC): 5 Toileting Hygiene (QC): 3 Shower/Bathe Self (QC): 2 Upper Body Dressing (QC): 3 Lower Body Dressing (QC): 2 On/Off Footwear (QC): 1 Additional Goals: 1-Demonstrate ADL Tasks, 3-ImproveStrength/Daniel 1=Demonstrate adherence to instructed precautions during ADL tasks. 2=Patient will verbalize/demonstrate understanding of assistive devices/modifications for ADL. 3=Patient will improve strength/tolerance for activity to enable patient to perform ADL's. OT Education/Plan Problem List/Assessment Assessment: Decreased Activ Tolerance, Decreased UE Strength, Impaired I ADL's, Impaired Self-Care Skills Pt would benefit from short term skilled OT to increase BUE strength and functional endurance to maximize LOF to return home with caregiver assistance. Discharge Recommendations Plan/Recommendations: Continue POC Treatment Plan/Plan of Care Patient would benefit from OT for education, treatment and training to promote independence in ADL's, mobility, safety and/or upper extremity function for ADL's. Plan of Care: ADL Retraining, Functional Mobility, UE Funct Exercise/Act Treatment Duration: Sep 11, 2020 Frequency: 5 times per week Estimated Hrs Per Day: .25 hour per day Rehab Potential: Fair Time/GCodes Start Time: 13:27 Stop Time: 13:45 Total Time Billed (hr/min): 18 Billed Treatment Time 1, ANDRE CADE OT Sep 02, 2020 14:09
[2020-09-02] MEDS: NS IV 1000 ML 1,000 ML IV SCH (15:40)
--- NOTE | 2020-09-02 15:48 | NUR ---
1535 PT TO ROOM 402 VIA WC ACCOMPANIED BY ICU STAFF. REPORT GIVEN TO PRIYA HUBBARD PRIOR TO TRANSFER.
--- NOTE | 2020-09-02 15:50 | NUR ---
JONATHON TINSLEY admitted to room 402-1, with an admitting diagnosis of NSTEMI and chest pain, directly from [facility] ICU via wheelchair, accompanied by staff.JONATHON TINSLEY introduced to surroundings, call light, bed controls, phone, TV, temperature control, lights, meal times, smoking policy, visitor policy, side rail policy, bathrooms and showers. Patient Rights given to patient in the handbook. JONATHON TINSLEY verbalizes understanding that [facility] is not responsible for the loss or damage to any personal effects or valuables that are kept in the patients posession during their hospitalization.
[2020-09-02] MEDS: CARVEDILOL 3.125 MG (COREG) TABLET PO SCH (20:43)
[2020-09-02] MEDS: ZOLPIDEM 5 MG (AMBIEN) TAB PO PRN (21:42)
[2020-09-03] MEDS: NS IV 1000 ML 1,000 ML IV SCH ×2 (03:24→11:14)
[2020-09-03 04:55] LABS: BASOPHILS % (AUTO) 0 % (0-10); EOSINOPHILS % (AUTO) 0 % (0-10); HEMATOCRIT 23 % (40-54); HEMOGLOBIN 7.7 g/dL (13.3-17.7); LYMPHOCYTES # (AUTO) 0.6 10^3/uL (1.0-4.0); LYMPHOCYTES % (AUTO) 9 % (12-44); MEAN CORPUSCULAR HEMOGLOBIN 26 pg (25-34); MEAN CORPUSCULAR HGB CONC 34 g/dL (32-36); MEAN CORPUSCULAR VOLUME 78 fL (80-99); MEAN PLATELET VOLUME 8.7 fL (9.0-12.2); MONOCYTES # (AUTO) 0.3 10^3/uL (0.0-1.0); MONOCYTES % (AUTO) 5 % (0-12); NEUTROPHILS # (AUTO) 5.8 10^3/uL (1.8-7.8); NEUTROPHILS % (AUTO) 85 % (42-75); PLATELET COUNT 289 10^3/uL (130-400); WHITE BLOOD COUNT 6.7 10^3/uL (4.3-11.0)
[2020-09-03 05:16] LABS: ALANINE AMINOTRANSFERASE 14 U/L (0-55); ALBUMIN 3.5 GM/DL (3.2-4.5); ALKALINE PHOSPHATASE 35 U/L (40-136); BILIRUBIN,TOTAL 0.6 MG/DL (0.1-1.0); BUN/CREATININE RATIO 20; CALCIUM 8.7 MG/DL (8.5-10.1); CARBON DIOXIDE 22 MMOL/L (21-32); CHLORIDE 101 MMOL/L (98-107); CHOLESTEROL 139 MG/DL (< 200); CREATININE SERUM 0.83 MG/DL (0.60-1.30); GFR ESTIMATED > 60; GLUCOSE 142 MG/DL (70-105); HDL CHOLESTEROL 39 MG/DL (40-60); MAGNESIUM 1.5 MG/DL (1.6-2.4); PHOSPHORUS 2.7 MG/DL (2.3-4.7); POTASSIUM 4.1 MMOL/L (3.6-5.0); SODIUM 134 MMOL/L (135-145); TRIGLYCERIDES 147 MG/DL (<150); VLDL CHOLESTEROL 29 MG/DL (5-40)
[2020-09-03] MEDS: methylPREDNISolone 40 MG/ML (Solu-MEDROL) VIAL IV SCH (05:41)
[2020-09-03] MEDS: CARVEDILOL 3.125 MG (COREG) TABLET PO SCH ×2 (08:00→20:17)
[2020-09-03] MEDS: CLOPIDOGREL 75 MG (PLAVIX) TABLET PO SCH (08:00)
[2020-09-03] MEDS: LEVETIRACETAM 500 MG (KEPPRA) TAB PO SCH ×2 (08:00→20:17)
[2020-09-03] MEDS: PANTOPRAZOLE 40 MG (PROTONIX) VIAL IV SCH (08:00)
[2020-09-03] MEDS: MAGNESIUM OXIDE (MAG-OX)400 MG TAB PO SCH ×2 (08:00→18:30)
[2020-09-03] MEDS: ASPIRIN E.C. 81 MG (ECOTRIN) TAB PO SCH (08:00)
--- NOTE | 2020-09-03 08:25 | NUR ---
Dr. Goodman requested 40 Lasix once verbally in patients room. Order placed at this time.
[2020-09-03] MEDS ORDERED: FUROSEMIDE 40 MG/4 ML INJ (LASIX) IVP NR (08:30)
[2020-09-03] MEDS: RAMIPRIL 2.5 MG (ALTACE) CAP PO SCH (08:38)
--- NOTE | 2020-09-03 08:49 | Cardiology Progress Note ---
Subjective Date Seen by Provider: Sep 03, 2020 Time Seen by Provider: 08:47 Subjective/Events-last exam Patient is feeling better, still having generalized weakness, no chest pain, mild dyspnea Review of Systems General: No Chills, No Night Sweats, No Fatigue, No Malaise, No Appetite, No O ther HEENT: No Head Aches, No Visual Changes, No Eye Pain, No Ear Pain, No Dys phasia, No Sinus Congestion, No Post Nasal Drip, No Sore Throat, No Other Pulmonary: Dyspnea; No Cough, No Pleuritic Chest Pain, No Other Cardiovascular: No: Chest Pain, Palpitations, Orthopnea, Paroxysmal Noc. Dyspnea, Edema, Lt Headedness, Other Focused Exam Lactate Level 08/31/20 21:20: Lactic Acid Level 1.59 09/01/20 00:20: Lactic Acid Level 0.34L Objective-Cardiology Exam Last Set of Vital Signs Vital Signs 09/01/20 09/02/20 09/03/20 22:18 19:43 05:22 Temp 36.4 Pulse 71 Resp 22 B/P (MAP) 165/72 Pulse Ox 95 O2 Delivery Room Air O2 Flow Rate 2.00 FiO2 28 Capillary Refill : Less Than 3 Seconds I&O Intake and Output 09/03/20 00:00 Intake Total 1235 ml Output Total 3475 ml Balance -2240 ml Intake Oral 1140 ml IV Total 95 ml Output Urine Total 3475 ml General: Alert, Oriented X3, Cooperative HEENT: Mucous Memb Moist/[place]ck: Supple, No JVD Lungs: Clear to Auscultation, Normal Air Movement Heart: Regular Rate, Normal S1, Normal S2, No Murmurs Abdomen: Normal Bowel Sounds, Soft, No Tenderness Extremities: Other (1+ pitting edema) Skin: No Rashes, No Breakdown Neuro: Normal Speech, Other (LE strength 4/5 bilaterally) Psych/Mental Status: Mental Status NL, Mood NL Results Lab Laboratory Tests 09/03/20 04:41 A/P-Cardiology Admission Diagnosis Acute respiratory failure Acute myocardial infarction Acute congestive heart failure Acute renal failure Assessment/Plan Status post acute respiratory failure with flash pulmonary edema, responded to diuretics, better at this time, still having mild dyspnea Coronary artery disease, extensive history with history of CABG in 2004, multipl e intervention in the past, reporting that he required 17 stents. Cardiac catheterization was carried out emergently yesterday which showed occluded LAD with patent vein graft to the diagonal artery that is filling the LAD. There is another vein graft presumably to an obtuse marginal branch that is occluded. Dominant circumflex artery that has bblg-aa-lkqzxaom disease with patent stent, the first obtuse marginal branch is occluded and appeared to be chronic total occlusion. The right coronary artery is small nondominant artery with severe stenosis at the midportion. I attempted to cross the chronically occluded vein graft without any success. I used backup balloon and used multiple different wires without the ability to cross the chronic total occlusion. Troponin level is very minimal and elevation. Conservative management is recommended. Continue on aspirin and Plavix Congestive heart failure, acute left ventricular systolic dysfunction, ischemic in nature, ejection fraction 30-35 percent compared to the last echo that was done 2 weeks ago with normal EF. Starting beta blockers and JOSE inhibitor and evaluate tolerance and response Generalized weakness, debility, PT/OT are consulted Status post hypotensive shock, blood pressure is better. Acute renal failure, improved, continue to monitor renal function Hyperlipidemia, maintained on statin. Continue to monitor lipids COPD, managed by primary care physician Diabetes mellitus, followed and managed by primary care physician History of seizure disorder History of neurogenic bladder Clinical Quality Measures AMI/AHF: ASA po Prior to arrival: Yes DVT/VTE Risk/Contraindication: Risk Factor Score Per Nursin RFS Level Per Nursing on Admit: 4+=Very High MANE VARGAS MD Sep 03, 2020 08:49
--- NOTE | 2020-09-03 09:52 | Physical Therapy Daily Note ---
PT Daily Note-Current Subjective Patient is on the commode for BM. AGrees to PT. Mental Status Patient Orientation: Normal For Age Attachments: Oxygen, Ulloa Catheter Transfers SCALE: Activities may be completed with or without assistive devices. 5-Fgnaahgrqt-asrxkjs completes the activity by him/herself with no assistance from a helper. 5-Set-up or Clean-up Assistance-helper sets up or cleans up; patient completes activity. [place] assists only prior to or following the activity. 4-Supervision or Touching Assistance-helper provides verbal cues and/or touching/steadying and/or contact guard assistance as patient completes activity. Assistance may be provided throughout the activity or intermittently. 3-Partial/Moderate Assistance-helper does LESS THAN HALF the effort. [place] lifts, holds or supports trunk or limbs, but provides less than half the effort. 2-Substantial/Maximal Assistance-helper does MORE THAN HALF the effort. [place] lifts or holds trunk or limbs and provides more than half the effort. 9-Dlheondae-kpjmai does ALL the effort. Patient does none of the effort to complete the activity. Or, the assistance of 2 or more helpers is required for the patient to complete the activity. If activity was not attempted, code reason: 7-Patient Refused. 9-Not Applicable-not attempted and the patient did not perform the activity before the current illness, exacerbation or injury. 10-Not Attempted due to Environmental Limitations-(lack of equipment, weather restraints, etc.). 88-Not Attempted due to Medical Conditions or Safety Concerns. Sit to Stand (QC): 2 slightly retropulsive with sit to stand to FWW and use of gait belt. Gait Training Distance: 5' Gait Assistive Device: FWW Patient is in w/c at home for mobility. Patient able to take some steps [facility] Noted increase SOA with minimal activity. Wheelchair Training Does the Pt Use a Wheelchair?: Yes Exercises Seated Therapy Exercises: Long arc quads, Hip flexion Seated Reps: 15 Assessment Patient tolerates minimal activity and is nonambulatory per his report, at home and utilize w/c for mobility. Patient has caregivers at home PLOF. PT Usp Goals Usp Goals PT Usp Goals Time Frame: Sep 14, 2020 Roll Left & Right (QC): 5 Sit to Lying (QC): 5 Lying-Sitting on Side/Bed(QC): 5 Sit to Stand (QC): 5 Chair/Cyv-qd-Mgpep Xfer(QC): 5 Toilet Transfer (QC): 5 Does the Patient Walk: Yes Walk 10 feet (QC): 5 Walk 50ft with 2 Turns (QC): 5 Walk 150 ft (QC): 5 PT Plan Treatment/Plan Treatment Plan: Continue Plan of Care Treatment Plan: Bed Mobility, Education, Functional Activity Daniel, Functional Strength, Gait, Safety, Therapeutic Exercise, Transfers Treatment Duration: Sep 14, 2020 Frequency: 6 times per week Estimated Hrs Per Day: .25 hour per day Patient and/or Family Agrees t: Yes Time/GCodes Time In: 925 Time Out: 936 Total Billed Treatment Time: 11 Total Billed Treatment 1 visit FA 11 min MINERVA STEWART PT Sep 03, 2020 09:52
--- NOTE | 2020-09-03 10:30 | Occupational Ther Daily Note ---
OT Current Status-Daily Note Subjective Pt in chair upon OT entry. Pt alert. Pt agrees to OT tx, stating desire for sponge bath. Pt has caregivers that assist in this task. Pt is encouraged throughout to complete as much as he can. Mental Status/Objective Attachments: Oxygen (1.5) ADL-Treatment Therapy Code Descriptions/Definitions Functional [place] Measure: 0=Not Assessed/NA 4=Minimal Assistance 1=Total Assistance 5=Supervision or Setup 2=Maximal Assistance 6=Modified [place] 3=Moderate Assistance 7=Complete IndependenceSCALE: Activities may be completed with or without assistive devices. 6-Kgosgohurf-exyatvm completes the activity by him/herself with no assistance from a helper. 5-Set-up or Clean-up Assistance-helper sets up or cleans up; patient completes activity. [place] assists only prior to or following the activity. 4-Supervision or Touching Assistance-helper provides verbal cues and/or touching/steadying and/or contact guard assistance as patient completes activity. Assistance may be provided throughout the activity or intermittently. 3-Partial/Moderate Assistance-helper does LESS THAN HALF the effort. [place] lifts, holds or supports trunk or limbs, but provides less than half the effort. 2-Substantial/Maximal Assistance-helper does MORE THAN HALF the effort. [place] lifts or holds trunk or limbs and provides more than half the effort. 4-Hrxmiqpiw-ndusjd does ALL the effort. Patient does none of the effort to complete the activity. Or, the assistance of 2 or more helpers is required for the patient to complete the activity. If activity was not attempted, code reason: 7-Patient Refused. 9-Not Applicable-not attempted and the patient did not perform the activity before the current illness, exacerbation or injury. 10-Not Attempted due to Environmental Limitations-(lack of equipment, weather restraints, etc.). 88-Not Attempted due to Medical Conditions or Safety Concerns. Eating (QC): 6 (per pt completed) Bathing Location: L Arm, R Arm, L Upper Leg, R Upper Leg, Chest, Abdomen, Perineal Area Shower/Bathe Self (QC): 3 ( mod A BLE and bottom hygiene in stance. Pt is educated on toe hygiene/ ensuring cleaning between as very dirty.) Upper Body Dressing (QC): 3 On/Off Footwear: 1 Toileting Hygiene (QC): 2 Other Treatment Pt completes sponge bath as outlined. Requires encouragement. Pt sit to stand with CGA x2 and L knee blocking with assist from nurse as pt states it "gives out" when he stands. Pt's bottom completed and [place] placed under pt. Pt sits with control, all needs met, call light in reach. Education OT Patient Education: Correct positioning, Purpose of tx/functional activities, Safety issues, Transfer techniques Teaching Recipient: Patient Teaching Methods: Demonstration, Discussion Response to Teaching: Verbalize Understanding, Return Demonstration OT Halfway Goals Manager [employer] Goals Time Frame: Sep 11, 2020 Eating (QC): 5 Oral Hygiene (QC): 5 Toileting Hygiene (QC): 3 Shower/Bathe Self (QC): 2 Upper Body Dressing (QC): 3 Lower Body Dressing (QC): 2 On/Off Footwear (QC): 1 Additional Goals: 1-Demonstrate ADL Tasks, 3-ImproveStrength/Daniel 1=Demonstrate adherence to instructed precautions during ADL tasks. 2=Patient will verbalize/demonstrate understanding of assistive devices/modifications for ADL. 3=Patient will improve strength/tolerance for activity to enable patient to perform ADL's. OT Education/Plan Problem List/Assessment Assessment: Decreased Activ Tolerance, Decreased UE Strength, Dependent Transfers, Impaired Funct Balance, Impaired I ADL's, Impaired Self-Care Skills Pt would benefit from short term skilled OT to increase BUE strength and functional endurance to maximize LOF to return home with caregiver assistance. Discharge Recommendations Plan/Recommendations: Continue POC Therapy Discharge Recommendati: Scheduled Assistance Treatment Plan/Plan of Care Treatment,Training & Education: Yes Patient would benefit from OT for education, treatment and training to promote independence in ADL's, mobility, safety and/or upper extremity function for ADL's. Plan of Care: ADL Retraining, Functional Mobility, UE Funct Exercise/Act Treatment Duration: Sep 11, 2020 Frequency: 5 times per week Estimated Hrs Per Day: .25 hour per day Rehab Potential: Fair Time/GCodes Start Time: 08:35 Stop Time: 08:50 Total Time Billed (hr/min): 15 Billed Treatment Time 1, ADL (15) MANUEL NEUMANN OTR Sep 03, 2020 10:30
[2020-09-03 12:00] VITALS: BP 162/67
--- NOTE | 2020-09-03 12:00 | NUR ---
Informed Dr. Red that the patient stool sample was positive for occult blood
--- NOTE | 2020-09-03 13:17 | NUR ---
"RD ASSESSMENT PMHx: COPD; CAD; hypercholesterolemia; HTN; BPH; GERD; DM PT INTERACTION: Pt was awake and pleasant during nutrition assessment. Note pt needed redirection at times during assessment. Pt states current appetite is not good and has been this way since admit. Note no meals have been recorded, per chart review. Pt states following a regular diet at home, and has no issues with chewing/swallowing food, despite not having teeth. Pt states some recent issues with nausea, vomiting, and diarrhea, and that his last BM was 09/03. Note pt not currently on bowel regimen per chart review. Pt states recent wt loss, but unsure of amount/timeframe. Note recent 13# wt loss x6mon, per chart review. Pt states current DM management is pretty good. Note unable to determine recent HbA1c, per chart review. ABNORMAL NUTRITION-RELATED LAB VALUES LOW: Na 134; Mg 1.5; alkphos 35; Pro 6.0; HDL 39 HIGH: glu 142 Est. kcal needs: 1775 kcal | 25 kcal/kg Est. Pro needs: 71 g Pro | 1.0 g Pro/kg PES STATEMENT: Inadequate oral intake (NI-2.1) related to loss of appetite | nausea | vomiting | diarrhea as evidenced pt interview INTERVENTION: Continue with current diet order of Heart Healthy diet. Pt may benefit from consistent CHO restriction if blood glucose levels become elevated. Add Glucerna (vary) to meals TID, for increased kcal intake. Provides 220 kcal and 10 g Pro per serving. Offered diet education, but pt declined at this time. Will attempt to offer again prior to discharge. Will continue to follow and reassess as pt needs, intake, and status change. Mahsa Camacho, MS RD LD"
--- NOTE | 2020-09-03 13:33 | NUR ---
CM/SS: Visited with pt as to plan for discharge Plan: Undetermined at this time - pt is from home and has home community based service hours to assist him in the home. Pt also has had [facility] Summary: Pt is known to this worker based on a recent stay at the hospital. Pt reports feeling better today than he did on yesterday. Pt is asking about going home. He is reminded that the physician will decide when he will be able to leave. Pt reports when it is time that he would have his sister pick him up. Pt reports he does still have [facility]. This worker will follow up.
--- NOTE | 2020-09-03 15:43 | NUR ---
Patient states that his hip is hurting because of the cold weather and would like something for pain. Dr. Red notified at this time.
[2020-09-03 16:00] VITALS: BP 146/73
--- NOTE | 2020-09-03 16:23 | NUR ---
Patient anxious to get home and is continuously hitting his light he asks that I call Dr. Red. I contact her and she orders 0.5 Ativan and IV venofer at this time. SHe states she informed him previously that she was keeping him another night because of his low hemoglobin. I informed patient and asked about his allergy to diazepam. Patient states he is not allergic to diazepam. Orders placed at this time.
[2020-09-03] MEDS ORDERED: IRON SUCROSE 200 MG/10 ML (VENOFER) VIAL IV NR (16:30)
[2020-09-03] MEDS ORDERED: LORazepam 0.5 MG (ATIVAN) TABLET ONE (16:31)
[2020-09-03] MEDS: LORazepam 0.5 MG (ATIVAN) TABLET PO PRN ×2 (16:35→20:17)
--- NOTE | 2020-09-03 18:57 | Progress Note ---
Subjective Subjective/Events-last exam Patient states that he is doing much better. Tolerating PO diet. States that he transferred over to the chair. Review of Systems Pulmonary: Dyspnea; No Cough Cardiovascular: No: Chest Pain, Palpitations Gastrointestinal: No: Nausea, Vomiting, Abdominal Pain, Diarrhea, Constipation Focused Exam Lactate Level 08/31/20 21:20: Lactic Acid Level 1.59 09/01/20 00:20: Lactic Acid Level 0.34L Objective Exam Last Set of Vital Signs Vital Signs Date Time Temp Pulse Resp B/P (MAP) Pulse Ox O2 Delivery O2 Flow Rate FiO2 09/03/20 16:00 36.5 81 18 146/73 (97) 97 Nasal Cannula 2.00 09/01/20 22:18 28 Capillary Refill : Less Than 3 Seconds I&O Intake and Output 09/03/20 00:00 Intake Total 1235 ml Output Total 3475 ml Balance -2240 ml Intake Oral 1140 ml IV Total 95 ml Output Urine Total 3475 ml General: Alert, Oriented X3, No Acute Distress HEENT: Mucous Memb Moist/[place] Lungs: Clear to Auscultation, Normal Air Movement Heart: Regular Rate, No Murmurs Abdomen: Normal Bowel Sounds, Soft, No Tenderness, No Masses Extremities: No Edema, No Tenderness/Swelling Skin: No Rashes, No Breakdown Neuro: Normal Speech, Sensation Intact, Cranial Nerves 3-12 NL Results/Procedures Lab Laboratory Tests 09/03/20 04:41: White Blood Count 6.7, Red Blood Count 2.93L, Hemoglobin 7.7L, Hematocrit 23L, Mean Corpuscular Volume 78L, Mean Corpuscular Hemoglobin 26, Mean Corpuscular Hemoglobin Concent 34, Red Cell Distribution Width 13.9, Platelet Count 289, Mean Platelet Volume 8.7L, Immature Granulocyte % (Auto) 0, Neutrophils (%) (Auto) 85H, Lymphocytes (%) (Auto) 9L, Monocytes (%) (Auto) 5, Eosinophils (%) (Auto) 0, Basophils (%) (Auto) 0, Neutrophils # (Auto) 5.8, Lymphocytes # (Auto) 0.6L, Monocytes # (Auto) 0.3, Eosinophils # (Auto) 0.0, Basophils # (Auto) 0.0, Immature Granulocyte # (Auto) 0.0, Sodium Level 134L, Potassium Level 4.1, Chloride Level 101, Carbon Dioxide Level 22, Anion Gap 11, Blood Urea Nitrogen 17, Creatinine 0.83, Estimat Glomerular Filtration Rate > 60, BUN/Creatinine Ratio 20, Glucose Level 142H, Calcium Level 8.7, Corrected Calcium 9.1, Phosphorus Level 2.7, Magnesium Level 1.5L, Total Bilirubin 0.6, Aspartate Amino Transf (AST/SGOT) 23, Alanine Aminotransferase (ALT/SGPT) 14, Alkaline Phosphatase 35L, Total Protein 6.0L, Albumin 3.5, Triglycerides Level 147, Cholesterol Level 139, LDL Cholesterol Direct 81, VLDL Cholesterol 29, HDL Chol esterol 39L 09/03/20 11:47: Stool Occult Blood Immunoassay POSITIVEH Microbiology 08/31/20 Urine Culture - Final, Complete NO GROWTH 08/31/20 Blood Culture - Preliminary, Resulted No growth Assessment/Plan Assessment/Plan (1) STEMI (ST elevation myocardial infarction) Status: Acute Assessment & Plan: 09/02: Cardiology consulted, patient had Cath by Dr Goodman, maximize medical management 09/03: Patient on heparin and anti-plts (2) Acute respiratory failure Status: Chronic Assessment & Plan: 09/02: Patient extubated this AM, bedside swallow pending 09/03: Doing well on NC 2L Qualifiers: Qualified Codes: J96.01 - Acute respiratory failure with hypoxia (3) Acute renal failure (ARF) Status: Resolved (4) Microcytic anemia Assessment & Plan: 09/02: Will get Iron studies, Hemoccult stool, no signs of acute bleeding at this time 09/03: Hemoccult Pos, will need outpatient workup, Venafer today (5) Acute systolic (congestive) heart failure Status: Acute Assessment & Plan: 09/02: Previous echo with compensated EF, Now decreased at 30%, Cardiology managing, appreciate recommendations (6) CAD (coronary artery disease) Status: Chronic (7) HLD (hyperlipidemia) Status: Chronic Qualifiers: Qualified Codes: E78.5 - Hyperlipidemia, unspecified (8) DVT prophylaxis Status: Acute Clinical Quality Measures AMI/AHF: ASA po Prior to arrival: Yes DVT/VTE Risk/Contraindication: Risk Factor Score Per Nursin RFS Level Per Nursing on Admit: 4+=Very High VANCE VARELA MD Sep 03, 2020 18:57
[2020-09-03 20:00] VITALS: BP 152/67
[2020-09-03] MEDS: ZOLPIDEM 5 MG (AMBIEN) TAB PO PRN (20:17)
--- NOTE | 2020-09-03 22:49 | NUR ---
THIS RN REMOVED DIAZEPAM FROM PT'S ALLERGY LIST-- PT AND FAMILY MEMBER BOTH STATE THAT THE PATIENT DOES NOT HAVE A KNOWN ALLERGY TO THIS MEDICATION. PHARMACY NOTIFIED.
[2020-09-03 23:24] VITALS: BP 140/64
[2020-09-04 04:10] VITALS: BP 150/69
[2020-09-04 05:49] LABS: BASOPHILS % (AUTO) 0 % (0-10); EOSINOPHILS % (AUTO) 0 % (0-10); HEMATOCRIT 38 % (40-54); HEMOGLOBIN 12.2 G/DL (13.3-17.7); LYMPHOCYTES % (AUTO) 16 % (12-44); MEAN CORPUSCULAR HEMOGLOBIN 25 PG (25-34); MEAN CORPUSCULAR HGB CONC 32 G/DL (32-36); MEAN CORPUSCULAR VOLUME 79 FL (80-99); MEAN PLATELET VOLUME 8.9 FL (7.4-10.4); MONOCYTES % (AUTO) 9 % (0-12); NEUTROPHILS # (AUTO) 3.2 X 10^3 (1.8-7.8); NEUTROPHILS % (AUTO) 74 % (42-75); PLATELET COUNT 209 10^3/uL (130-400); WHITE BLOOD COUNT 4.3 10^3/uL (4.3-11.0)
[2020-09-04 05:50] LABS: LYMPHOCYTES # (AUTO) 0.7 X 10^3 (1.0-4.0); MONOCYTES # (AUTO) 0.4 X 10^3 (0.0-1.0)
[2020-09-04 05:58] LABS: BUN/CREATININE RATIO 20; CARBON DIOXIDE 25 MMOL/L (21-32); CHLORIDE 97 MMOL/L (98-107); CREATININE SERUM 0.74 MG/DL (0.60-1.30); GFR ESTIMATED > 60; GLUCOSE 123 MG/DL (70-105); POTASSIUM 3.7 MMOL/L (3.6-5.0); SODIUM 133 MMOL/L (135-145)
[2020-09-04 05:59] LABS: CALCIUM 8.7 MG/DL (8.5-10.1); MAGNESIUM 1.6 MG/DL (1.6-2.4); PHOSPHORUS 2.1 MG/DL (2.3-4.7)
[2020-09-04] MEDS ORDERED: predniSONE 20 MG TAB PO SCH ×2 (07:00)
[2020-09-04 07:53] VITALS: BP 148/69
[2020-09-04] MEDS: MAGNESIUM OXIDE (MAG-OX)400 MG TAB PO SCH (08:41)
[2020-09-04] MEDS: ASPIRIN E.C. 81 MG (ECOTRIN) TAB PO SCH (08:41)
[2020-09-04] MEDS: RAMIPRIL 2.5 MG (ALTACE) CAP PO SCH (08:41)
[2020-09-04] MEDS: LORazepam 0.5 MG (ATIVAN) TABLET PO PRN (08:41)
[2020-09-04] MEDS: CLOPIDOGREL 75 MG (PLAVIX) TABLET PO SCH (08:41)
[2020-09-04] MEDS: LEVETIRACETAM 500 MG (KEPPRA) TAB PO SCH (08:41)
[2020-09-04] MEDS: CARVEDILOL 3.125 MG (COREG) TABLET PO SCH (08:41)
[2020-09-04 09:00] LABS: HEMOGLOBIN 8.8 g/dL (13.3-17.7)
[2020-09-04] MEDS ORDERED: PANTOPRAZOLE 40 MG (PROTONIX) TAB PO SCH (09:00)
--- NOTE | 2020-09-04 09:47 | Cardiology Progress Note ---
Subjective Date Seen by Provider: Sep 04, 2020 Time Seen by Provider: 09:46 Subjective/Events-last exam Patient is sitting up in chair. No active chest pain. Denies dizziness or lightheadedness. Review of Systems General: No Chills, No Night Sweats; Fatigue, Malaise; No Appetite, No Other HEENT: No Head Aches, No Visual Changes, No Eye Pain, No Ear Pain, No Dysphasi a, No Sinus Congestion, No Post Nasal Drip, No Sore Throat, No Other Pulmonary: Dyspnea; No Cough, No Pleuritic Chest Pain, No Other Cardiovascular: Edema; No: Chest Pain, Palpitations, Orthopnea, Paroxysmal Noc. Dyspnea, Lt Headedness, Other Objective-Cardiology Exam Last Set of Vital Signs Vital Signs 09/01/20 09/04/20 22:18 11:44 Temp 36.6 Pulse 72 Resp 16 B/P (MAP) 168/70 (102) Pulse Ox 97 O2 Delivery Nasal Cannula O2 Flow Rate 2.00 FiO2 28 Capillary Refill : Less Than 3 Seconds I&O Intake and Output0 09/04/20 00:00 Intake Total 4000 ml Output Total 4200 ml Balance -200 ml Intake Oral 3000 ml IV Total 1000 ml Output Urine Total 4200 ml # Bowel Movements 4 General: Alert, Oriented X3, No Acute Distress HEENT: Mucous Memb Moist/[place] Neck: Supple, No JVD Lungs: Clear to Auscultation, Normal Air Movement Heart: Regular Rate, No Murmurs Abdomen: Normal Bowel Sounds, Soft, No Tenderness, No Masses Extremities: No Edema, No Tenderness/Swelling Skin: No Rashes, No Breakdown Neuro: Normal Speech, Sensation Intact, Cranial Nerves 3-12 NL Psych/Mental Status: Mental Status NL, Mood NL Results Lab Laboratory Tests 09/04/20 04:55 09/04/20 08:50 A/P-Cardiology Admission Diagnosis Acute respiratory failure Acute myocardial infarction Acute congestive heart failure Acute renal failure Assessment/Plan Status post acute respiratory failure with flash pulmonary edema, responded to diuretics, better at this time, continue to monitor. Coronary artery disease, extensive history with history of CABG in 2004, multiple intervention in the past, reporting that he required 17 stents. Cardiac catheterization was carried out emergently yesterday which showed occluded LAD with patent vein graft to the diagonal artery that is filling the LAD. There is another vein graft presumably to an obtuse marginal branch that is occluded. Dominant circumflex artery that has [id number] disease with patent stent, the first obtuse marginal branch is occluded and appeared to be chronic total occlusion. The right coronary artery is small nondominant artery with severe stenosis at the midportion. I attempted to cross the chronically occluded vein graft without any success. I used backup balloon and used multiple different wires without the ability to cross the chronic total occlusion. Troponin level is very minimal and elevation. Conservative man agement is recommended. Continue on aspirin and Plavix Congestive heart failure, acute left ventricular systolic dysfunction, ischemic in nature, ejection fraction 30-35 percent compared to the last echo that was done 2 weeks ago with normal EF. Starting beta blockers and JOSE inhibitor and evaluate tolerance and response Generalized weakness, debility, continue PT/OT Status post hypotensive shock, blood pressure is better. Acute renal failure, improved, continue to monitor renal function Hyperlipidemia, maintained on statin. Continue to monitor lipids COPD, managed by primary care physician Diabetes mellitus, followed and managed by primary care physician History of seizure disorder History of neurogenic bladder Patient was seen and evaluated with Jatin, examination performed, management plan was discussed, agree with the current scribed note, I made few changes to the note using Italic font Patient is sitting comfortably and requesting to low Had a long discussion of possibility of inpatient rehabilitation, patient preferred to go home Discussed with Dr. Red regarding the management plan. Okay for discharge from cardiology standpoint Clinical Quality Measures AMI/AHF: ASA po Prior to arrival: Yes DVT/VTE Risk/Contraindication: Risk Factor Score Per Nursin RFS Level Per Nursing on Admit: 4+=Very High JATIN MARTÍNEZ Sep 04, 2020 09:47 MANE VARGAS MD Sep 04, 2020 12:47
--- NOTE | 2020-09-04 10:14 | Occupational Ther Daily Note ---
OT Current Status-Daily Note Subjective Pt in bed upon entry. No c/o pain. Pt has 1.5 L 02 on. Pt's nurse states pt was somewhat anxious and desired 02. Pt states okay to doff end of tx. Pt denies pain. Mental Status/Objective Attachments: Oxygen (1.5 L, end of session doffs) ADL-Treatment Therapy Code Descriptions/Definitions Functional [place] Measure: 0=Not Assessed/NA 4=Minimal Assistance 1=Total Assistance 5=Supervision or Setup 2=Maximal Assistance 6=Modified [place] 3=Moderate Assistance 7=Complete IndependenceSCALE: Activities may be completed with or without assistive devices. 8-[id number]-[id number] completes the activity by him/herself with no assistance from a helper. 5-Set-up or Clean-up Assistance-helper sets up or cleans up; patient completes activity. [place] assists only prior to or following the activity. 4-Supervision or Touching Assistance-helper provides verbal cues and/or touching/steadying and/or contact guard assistance as patient completes activity. Assistance may be provided throughout the activity or intermittently. 3-Partial/Moderate Assistance-helper does LESS THAN HALF the effort. [place] lifts, holds or supports trunk or limbs, but provides less than half the effort. 2-Substantial/Maximal Assistance-helper does MORE THAN HALF the effort. [place] lifts or holds trunk or limbs and provides more than half the effort. 4-Cfcdiewth-thnpyz does ALL the effort. Patient does none of the effort to complete the activity. Or, the assistance of 2 or more helpers is required for the patient to complete the activity. If activity was not attempted, code reason: 7-Patient Refused. 9-Not Applicable-not attempted and the patient did not perform the activity before the current illness, exacerbation or injury. 10-Not Attempted due to Environmental Limitations-(lack of equipment, weather restraints, etc.). 88-Not Attempted due to Medical Conditions or Safety Concerns. Other Treatment Pt completes bed mob with SBA. Sit to stand EOB with SBA. Pt ambulates to recliner with CGA, increased time for pt. Pt sits with control. Pt has phone donovan l and desires for OT to communicate- Diana from [facility] on phone desiring to know if pt requires O2 to go home. Pt's nurse notified and nursing states 02 not necessary, Diana notified. Pt states he does not think he needs 02 at this time. Agrees to doff during end of tx. Pt completes treatment with no SOB. Pt in recliner with all needs met, call light in reach. Education OT Patient Education: Correct positioning, Purpose of tx/functional activities, Safety issues, Transfer techniques Teaching Recipient: Patient Teaching Methods: Demonstration, Discussion Response to Teaching: Verbalize Understanding, Return Demonstration OT Custodial Goals Direct Support Specialist Goals Time Frame: Sep 11, 2020 Eating (QC): 5 Oral Hygiene (QC): 5 Toileting Hygiene (QC): 3 Shower/Bathe Self (QC): 2 Upper Body Dressing (QC): 3 Lower Body Dressing (QC): 2 On/Off Footwear (QC): 1 Additional Goals: 1-Demonstrate ADL Tasks, 3-ImproveStrength/Daniel 1=Demonstrate adherence to instructed precautions during ADL tasks. 2=Patient will verbalize/demonstrate understanding of assistive devices/modific ations for ADL. 3=Patient will improve strength/tolerance for activity to enable patient to perform ADL's. OT Education/Plan Problem List/Assessment Assessment: Decreased Activ Tolerance, Decreased UE Strength, Dependent Transfers, Impaired Bed Mobility, Impaired Cognition, Impaired Funct Balance, Impaired I ADL's, Impaired Self-Care Skills Pt would benefit from short term skilled OT to increase BUE strength and functional endurance to maximize LOF to return home with caregiver assistance. Discharge Recommendations Plan/Recommendations: Continue POC Therapy Discharge Recommendati: 24 Hour Supervision, Scheduled Assistance, Post Acute OT Treatment Plan/Plan of Care Treatment,Training & Education: Yes Patient would benefit from OT for education, treatment and training to promote independence in ADL's, mobility, safety and/or upper extremity function for ADL's. Plan of Care: ADL Retraining, Functional Mobility, UE Funct Exercise/Act Treatment Duration: Sep 11, 2020 Frequency: 5 times per week Estimated Hrs Per Day: .25 hour per day Rehab Potential: Fair Time/GCodes Start Time: 09:24 Stop Time: 09:42 Total Time Billed (hr/min): 18 Billed Treatment Time 1, ANDREA (18) MANUEL NEUMANN OTR Sep 04, 2020 10:14
--- NOTE | 2020-09-04 10:15 | NUR ---
ASSISTED PATIENT WITH STRAIGHT CATH 16 SPANISH 450 MLS CLEAR RAYNA URINE
--- NOTE | 2020-09-04 10:18 | Discharge Summary ---
Discharge Summary Reconcile Patient Problems Problems Reviewed?: Yes Instructions for Patient Via [employer], Assessment/Instructions STEMI Acute Respiratory Failure Microcytic Anemia Acute Renal Failure Acute Systolic CHF CAD HLD COPD Physician to follow Patient: Iza Discharge Diet for Home: Cardiac Diet Hospital Course Date of Admission: Admission Diagnosis : Family Physician/Provider: Claus Couch MD Date of Discharge: 09/04/20 Discharge Diagnosis: STEMI Acute Respiratory Failure: Resolved Microcytic Anemia Acute Renal Failure: Resolved Acute Systolic CHF CAD HLD COPD Hospital Course: 70 yo M with extensive cardiac history that presented with acute respiratory failure and STEMI. Patient was taken to laboratory development technician by Dr Goodman and did not require any intervention. He had some total occlusions. Patient remained intubated for a day after the STEMI and was able to transition to RA during his admission. He was also noted to have anemia that trended down with a positive hemoccult and stablized any will need outpatient f.u as he states that it has been many years since he has had a colonoscopy. Previous Echo done several months ago showed normal EF and during cath patient was found to have decompensated CHF with EF 30-35%. Renal Failure resolved during admission. Labs and Pending Lab Test: Laboratory Tests 09/03/20 11:47: Stool Occult Blood Immunoassay POSITIVEH 09/04/20 04:55: White Blood Count 4.3, Red Blood Count 4.80, Hemoglobin 12.2L, Hematocrit 38L, Mean Corpuscular Volume 79L, Mean Corpuscular Hemoglobin 25, Mean Corpuscular Hemoglobin Concent 32, Red Cell Distribution Width 13.7, Platelet Count 209, Mean Platelet Volume 8.9, Immature Granulocyte % (Auto) 0, Neutrophils (%) (Auto) 74, Lymphocytes (%) (Auto) 16, Monocytes (%) (Auto) 9, Eosinophils (%) (Auto) 0, Basophils (%) (Auto) 0, Neutrophils # (Auto) 3.2, Lymphocytes # (Auto) 0.7L, Monocytes # (Auto) 0.4, Eosinophils # (Auto) 0.0, Basophils # (Auto) 0.0, Immature Granulocyte # (Auto) 0.0, Sodium Level 133L, Potassium Level 3.7, Chloride Level 97L, Carbon Dioxide Level 25, Anion Gap 11, Blood Urea Nitrogen 15, Creatinine 0.74, Estimat Glomerular Filtration Rate > 60, BUN/Creatinine Ratio 20, Glucose Level 123H, Calcium Level 8.7, Phosphorus Level 2.1L, Magnesium Level 1.6 09/04/20 08:50: Hemoglobin 8.8L, Hematocrit 28L Microbiology 08/31/20 Urine Culture - Final, Complete NO GROWTH 08/31/20 Blood Culture - Preliminary, Resulted No growth Home Meds Active Reported Oxycodon-Acetaminophen 7.5-325 (Oxycodone HCl/Acetaminophen) 1 Each Tablet 1 Ea PO DAILY PRN Docusate Sodium 100 Mg Capsule 100 Mg PO BID Oxycontin (Oxycodone HCl) 20 Mg Tab.er.12h 20 Mg PO BID Ondansetron Odt (Ondansetron) 4 Mg Tab.rapdis 4 Mg PO Q4 -6H PRN Nitrofurantoin [place]-Mcr 100 mg (Nitrofurantoin Monohyd/M-Cryst) 100 Mg Capsule 1 Ea PO DAILY Narcan (Naloxone HCl) 4 Mg [place] 4 Mg NS UD 1 SPRAY IN ONE NOSTRIL NEEDED FOR OVERDOSE, MAY REPEAT 1 TIME IN 2-3 MINUTES IF NO RESPONSE Miralax (Polyethylene Glycol 3350) 17 Gm Powd.pack 17 Gm PO DAILY PRN Meloxicam 15 Mg Tablet 15 Mg PO DAILY Magnesium (Magnesium Oxide) 250 Mg Tablet 250 Mg PO DAILY Ativan (Lorazepam) 1 Mg Tablet 1 Mg PO 1200 PRN Ativan (Lorazepam) 1 Mg Tablet 1 Mg PO BID Loratadine 10 Mg Tablet 10 Mg PO DAILY Lamotrigine 100 Mg Tablet 100 Mg PO BID Potassium Chloride 20 Meq Tab.er.prt 20 Meq PO DAILY Neurontin (Gabapentin) 300 Mg Capsule 300 Mg PO DAILY Furosemide 40 Mg Tablet 40 Mg PO DAILY Fluoxetine HCl 20 Mg Capsule 20 Mg PO DAILY Clotrimazole 15 Gm Cream..g. 1 Applic TP BID Benadryl Allergy (Diphenhydramine HCl) 25 Mg Tablet 25 Mg PO UD PRN Tylenol Extra Strength (Acetaminophen) 500 Mg Tablet 1,000 Mg PO Q6H PRN Acid Aircraft Dispatcher (FAMOTIDINE) (Famotidine) 20 Mg Tablet 20 Mg PO HS Ramipril 5 Mg Capsule 5 Mg PO DAILY Urecholine (Bethanechol Chloride) 10 Mg Tablet 25 Mg PO BID Olanzapine 5 Mg Tablet 5 Mg PO DAILY Metformin HCl 850 Mg Tablet 850 Mg PO DAILY Levetiracetam 500 Mg Tablet 500 Mg PO BID Fenofibrate (Fenofibrate Nanocrystallized) 145 Mg Tablet 145 Mg PO 1700 TAKES WITH SUPPER Pioglitazone HCl 30 Mg Tablet 30 Mg PO DAILY Ezetimibe 10 Mg Tablet 10 Mg PO HS Clopidogrel (Clopidogrel Bisulfate) 75 Mg Tablet 75 Mg PO DAILY Temazepam 7.5 Mg Capsule 7.5 Mg PO HS Trazodone HCl 50 Mg Tablet 50 Mg PO HS Betimol (Timolol) 5 Ml Drops 1 Drop OU BID Flomax (Tamsulosin HCl) 0.4 Mg Cap 0.4 Mg PO 1700 TAKES 30 MINUTES AFTER DINNER Simvastatin 40 Mg Tablet 40 Mg PO [address] Booker: Pulmonology Dr Goodman: Cardiology Patient Allergies: Coded Allergies: Penicillins (Verified Allergy, Unknown, 04/22/17) doxycycline (Unverified Allergy, Unknown, RASH, 03/07/17) phenobarbital (Unverified Allergy, Unknown, 03/07/17) RELAXES ME TOO MUCH piperacillin (Unverified Allergy, Unknown, RASH, PT HAS RECEIVED CEFAZOLIN IN THE PAST W/O ISSUE, 03/08/17) sulfamethoxazole (Verified Allergy, Unknown, 04/22/17) terazosin (Unverified Allergy, Unknown, 03/07/17) CHEST PAIN Height (Feet): 5 Height (Inches): 5.00 Weight (Pounds): 160 Weight (Ounces): 15.4 New Medications: Aspirin (Aspirin EC) 81 Mg Tablet.dr 81 MG PO DAILY, #30 TAB Carvedilol (Carvedilol) 3.125 Mg Tablet 3.125 MG PO BID, #60 TAB Continued Medications: Acetaminophen (Tylenol Extra Strength) 500 Mg Tablet 1000 MG PO Q6H PRN for PAIN-MILD (1-4), TAB Bethanechol Chloride (Urecholine) 10 Mg Tablet 25 MG PO BID, TAB Clopidogrel Bisulfate (Clopidogrel) 75 Mg Tablet 75 MG PO DAILY, TAB Clotrimazole (Clotrimazole) 15 Gm Cream..g. 1 APPLIC TP BID, TUBE Docusate Sodium (Docusate Sodium) 100 Mg Capsule 100 MG PO BID, CAP Ezetimibe (Ezetimibe) 10 Mg Tablet 10 MG PO HS, TAB Famotidine (Acid Aircraft Dispatcher (FAMOTIDINE)) 20 Mg Tablet 20 MG PO HS, TAB Fenofibrate Nanocrystallized (Fenofibrate) 145 Mg Tablet 145 MG PO 1700, TAB TAKES WITH SUPPER Fluoxetine HCl (Fluoxetine HCl) 20 Mg Capsule 20 MG PO DAILY, CAP Furosemide (Furosemide) 40 Mg Tablet 40 MG PO DAILY, TAB Gabapentin (Neurontin) 300 Mg Capsule 300 MG PO DAILY, CAP Lamotrigine (Lamotrigine) 100 Mg Tablet 100 MG PO BID, TAB Levetiracetam (Levetiracetam) 500 Mg Tablet 500 MG PO BID, TAB Loratadine (Loratadine) 10 Mg Tablet 10 MG PO DAILY, TAB Lorazepam (Ativan) 1 Mg Tablet 1 MG PO BID, TAB Lorazepam (Ativan) 1 Mg Tablet 1 MG PO 1200 PRN for SEIZURE ACTIVITY, TAB Magnesium Oxide (Magnesium) 250 Mg Tablet 250 MG PO DAILY, TAB Metformin HCl (Metformin HCl) 850 Mg Tablet 850 MG PO DAILY Naloxone HCl (Narcan) 4 Mg [place] 4 MG NS UD for OD, SPRAY 1 SPRAY IN ONE NOSTRIL NEEDED FOR OVERDOSE, MAY REPEAT 1 TIME IN 2-3 MINUTES IF NO RESPONSE Nitrofurantoin Monohyd/M-Cryst (Nitrofurantoin [place]-Mcr 100 mg) 100 Mg Capsule 1 EA PO DAILY, CAP Olanzapine (Olanzapine) 5 Mg Tablet 5 MG PO DAILY, TAB Oxycodone HCl (Oxycontin) 20 Mg Tab.er.12h 20 MG PO BID, TAB Oxycodone HCl/Acetaminophen (Oxycodon-Acetaminophen 7.5-325) 1 Each Tablet 1 EA PO DAILY PRN for PAIN-BREAKTHROUGH, TAB Pioglitazone HCl (Pioglitazone HCl) 30 Mg Tablet 30 MG PO DAILY, TAB Polyethylene Glycol 3350 (Miralax) 17 Gm Powd.pack 17 GM PO DAILY PRN for CONSTIPATION-2ND LINE, EACH Potassium Chloride (Potassium Chloride) 20 Meq Tab.er.prt 20 MEQ PO DAILY, TAB Ramipril (Ramipril) 5 Mg Capsule 5 MG PO DAILY, CAP Simvastatin (Simvastatin) 40 Mg Tablet 40 MG PO 1800, TAB Tamsulosin HCl (Flomax) 0.4 Mg Cap 0.4 MG PO 1700, CAP TAKES 30 MINUTES AFTER DINNER Temazepam (Temazepam) 7.5 Mg Capsule 7.5 MG PO HS, CAP Timolol (Betimol) 5 Ml Drops 1 DROP OU BID, DROPS Trazodone HCl (Trazodone HCl) 50 Mg Tablet 50 MG PO HS, TAB Discontinued Medications: Diphenhydramine HCl (Benadryl Allergy) 25 Mg Tablet 25 MG PO UD PRN for ITCHING, TAB Meloxicam (Meloxicam) 15 Mg Tablet 15 MG PO DAILY, TAB Ondansetron (Ondansetron Odt) 4 Mg Tab.rapdis 4 MG PO Q4 -6H PRN for NAUSEA/VOMITING-1ST LINE, TAB Home Health Need/Face to Face Date of Face to Face: Sep 04, 2020 Clinical Findings: Generalized weakness and fatigue, Muscle weakness, Non or partial weight bearing, Unsteady gait I have seen Pt [id number]: Yes Discharged To: Home Diagnosis/Conditions: See Above Patient is Homebound due to: Stella fall risk due to instabilty, Muscle weakness Homebound Status Due to the above stated illness, injury or surgical procedure (medical condition or diagnosis) and associated clinical findings, the patient is homebound because of his/her inability to leave home except with aid of a supportive device and/or person AND leaving the home requires a considerable and taxing effort or is medically contraindicated. Pt req the following assistanc: Wheelchair Home Health Nursing Orders Home Health Services Order: Nursing Services, Human Resources Trainer-Evaluate & Treat, Physical Therapy-Evaluate & Treat Home Health Infusion Therapy Line Start Date: Aug 31, 2020 Therapy Orders Therapy Orders: OT (must have SN or PT order), Physical Therapy, PT to assess for OT Therapy Specific Orders: Teach enviro modifications/safety, Gait training, Increase strength/endurance Certify Stmt I certify that this patient is under my care and that I, a nurse practitioner or a physician; a engineer first assistant working with me, had a face to face encounter that - meets the physician face to face encounter requirements with this patient as dated. Discharge Physical Exam General: Alert, Oriented X3, Cooperative, No Acute Distress HEENT: Mucous Memb Moist/[place] Lungs: Clear to Auscultation, Normal Air Movement Heart: Regular Rate, No Murmurs Abdomen: Normal Bowel Sounds, Soft, No Tenderness, No Masses Extremities: No Edema, No Tenderness/Swelling Skin: No Rashes, No Breakdown Neuro: Normal Speech, Sensation Intact, Cranial Nerves 3-12 NL, Other (3/5 LE strength bilaterally) Psych/Mental Status: Mental Status NL, Mood NL VANCE VARELA MD Sep 04, 2020 10:16
[2020-09-04] MEDS ORDERED: ASPI-1238 PO (10:20)
[2020-09-04] MEDS ORDERED: CARV3.122 PO (10:20)
[2020-09-04 11:44] VITALS: BP 168/70
--- NOTE | 2020-09-04 14:02 | Physical Therapy Progress Note ---
Therapy Progress Note MANAGER BOOKS checked on pt as DC summary was already documented. Per Nurse, pt to DC after 4pm in afternoon. Pt declined need for PT tx. 1 visit, no tx rendered RASHMI OLIVER MANAGER BOOKS Sep 04, 2020 14:02
[2020-09-04 15:51] VITALS: BP 155/70
[2020-09-04 16:30] VITALS: BP 155/70
--- NOTE | 2020-09-04 16:32 | NUR ---
CM/SS: Visited with pt as to plan for discharge and coordinate transportation Plan: Pt to discharge to home with [facility] resumed as well as [facility]. Summary: Pt would like for his sister to be notified to pick him up from hospital. Telephone call to Hellen - sister of pt [phone] - she will be able to pick pulling machine operator pt when she gets off work. She will be off around 4pm. She will pick pulling machine operator pt at that time. She is coming from [place]. Pt is notified that his sister will be able to pick him up when she gets off work. PRIYA Soni is notified as well. Email to [place], Patti Taylor that pt would be discharging from hospital today.
== END 2020-09-04 16:30 | disposition home health service (06) ==
LOC: EDUNIT# 21:17 → ER 21:19 → CATH 21:33 → ICU 23:21 → CSD 09-02 07:52 → 4TH 09-02 15:40 → CATH 09-04 16:30
PROVIDERS: ATTEND Internal Medicine Cardiovascular Disease
DX: J96.01 Acute respiratory failure with hypoxia (principal); I13.0 Hypertensive heart and chronic kidney disease with heart failure and stage 1 through stage 4 chronic kidney disease, or unspecified chronic kidney disease; E11.22 Type 2 diabetes mellitus with diabetic chronic kidney disease; I50.33 Acute on chronic diastolic (congestive) heart failure; N17.9 Acute kidney failure, unspecified; N18.9 Chronic kidney disease, unspecified; I21.3 ST elevation (STEMI) myocardial infarction of unspecified site; J43.9 Emphysema, unspecified; E78.00 Pure hypercholesterolemia, unspecified; N40.0 Benign prostatic hyperplasia without lower urinary tract symptoms; M19.90 Unspecified osteoarthritis, unspecified site; F41.9 Anxiety disorder, unspecified; F32.9 Major depressive disorder, single episode, unspecified; G43.909 Migraine, unspecified, not intractable, without status migrainosus; E66.9 Obesity, unspecified; Z68.26 Body mass index [BMI] 26.0-26.9, adult; F17.210 Nicotine dependence, cigarettes, uncomplicated; Z79.899 Other long term (current) drug therapy; Z79.82 Long term (current) use of aspirin; Z79.51 Long term (current) use of inhaled steroids; Z79.84 Long term (current) use of oral hypoglycemic drugs; Z88.0 Allergy status to penicillin; Z88.8 Allergy status to other drugs, medicaments and biological substances; Z95.1 Presence of aortocoronary bypass graft; Z95.5 Presence of coronary angioplasty implant and graft
CPT/HCPCS: 71045 ×2; 80048; 80053; 81000; 83605; 83735 ×2; 83874; 83880; 84100; 84478; 84484; 85007; 85014; 85018; 85025; 85027; 85347; 85379; 85610; 85730; 87040; 87088; 93005; 93041; 93306; 93459; 94002; 94760; 97530; 99285; C1725; C1760; C1769 ×2; C1887; C1894 ×2; U0002; 36415; 87635

== ENCOUNTER 2020-09-13 01:59 | Emergency (ER) | payer MEDICAID, MEDICARE ==
[~2020-09-13 01:59] MED LIST changes: +ACET-2267 PO; +CARV3.122 PO; +CLOT15CR28 TP; +DIPH25TA65 PO; +DOCU100C37 PO; +GABA300C PO; +LAMO100T5 PO; +LORA-405 PO; +MAGN250T13 PO; +MELO15TA39 PO; +NALO4SPR NS; +NITR100C10 PO; +ONDA4TAB11 PO; +OXYC-464 PO; +POTA20TA15 PO
--- NOTE | 2020-09-13 02:13 | ED Fall/Injury ---
General Chief Complaint: Trauma-Non Activation Stated Complaint: FALL History of Present Illness Date Seen by Provider: Sep 13, 2020 Time Seen by Provider: 02:11 Initial Comments 70-year-old male brought via EMS. Patient brought in following a fall. He reports that he was having help getting into bed when that "kid helping him" dropped him and he hit his knee on a railing. Patient complains of pain in left hip and left knee. Patient has previously injured his left hip and has a tanvir in it. He has limited and painful range of motion that is chronic. He denies any other injury. Patient was not given any medication in route Allergies and Home Medications Allergies Coded Allergies: Penicillins (Verified Allergy, Unknown, 04/22/17) doxycycline (Unverified Allergy, Unknown, RASH, 03/07/17) phenobarbital (Unverified Allergy, Unknown, 03/07/17) RELAXES ME TOO MUCH piperacillin (Unverified Allergy, Unknown, RASH, PT HAS RECEIVED CEFAZOLIN IN THE PAST W/O ISSUE, 03/08/17) sulfamethoxazole (Verified Allergy, Unknown, 04/22/17) terazosin (Unverified Allergy, Unknown, 03/07/17) CHEST PAIN Home Medications Acetaminophen 500 Mg Tablet, 1,000 MG PO Q6H PRN for PAIN-MILD (1-4), (Reported) Aspirin 81 Mg Tablet.dr, 81 MG PO DAILY Prescribed by: VANCE VARELA on 09/04/20 1020 Bethanechol Chloride 10 Mg Tablet, 25 MG PO BID, (Reported) Carvedilol 3.125 Mg Tablet, 3.125 MG PO BID Prescribed by: VANCE VARELA on 09/04/20 1020 Clopidogrel Bisulfate 75 Mg Tablet, 75 MG PO DAILY, (Reported) Clotrimazole 15 Gm Cream..g., 1 APPLIC TP BID, (Reported) Docusate Sodium 100 Mg Capsule, 100 MG PO BID, (Reported) Ezetimibe 10 Mg Tablet, 10 MG PO HS, (Reported) Famotidine 20 Mg Tablet, 20 MG PO HS, (Reported) Fenofibrate Nanocrystallized 145 Mg Tablet, 145 MG PO 1700, (Reported) TAKES WITH SUPPER Fluoxetine HCl 20 Mg Capsule, 20 MG PO DAILY, (Reported) Furosemide 40 Mg Tablet, 40 MG PO DAILY, (Reported) Gabapentin 300 Mg Capsule, 300 MG PO DAILY, (Reported) Lamotrigine 100 Mg Tablet, 100 MG PO BID, (Reported) Levetiracetam 500 Mg Tablet, 500 MG PO BID, (Reported) Loratadine 10 Mg Tablet, 10 MG PO DAILY, (Reported) Lorazepam 1 Mg Tablet, 1 MG PO BID, (Reported) Lorazepam 1 Mg Tablet, 1 MG PO 1200 PRN for SEIZURE ACTIVITY, (Reported) Magnesium Oxide 250 Mg Tablet, 250 MG PO DAILY, (Reported) Metformin HCl 850 Mg Tablet, 850 MG PO DAILY, (Reported) Naloxone HCl 4 Mg [place], 4 MG NS UD, (Reported) 1 SPRAY IN ONE NOSTRIL NEEDED FOR OVERDOSE, MAY REPEAT 1 TIME IN 2-3 MINUTES IF NO RESPONSE Nitrofurantoin Monohyd/M-Cryst 100 Mg Capsule, 1 EA PO DAILY, (Reported) Olanzapine 5 Mg Tablet, 5 MG PO DAILY, (Reported) Oxycodone HCl 20 Mg Tab.er.12h, 20 MG PO BID, (Reported) Oxycodone HCl/Acetaminophen 1 Each Tablet, 1 EA PO DAILY PRN for PAIN- BREAKTHROUGH, (Reported) Pioglitazone HCl 30 Mg Tablet, 30 MG PO DAILY, (Reported) Polyethylene Glycol 3350 17 Gm Powd.pack, 17 GM PO DAILY PRN for CONSTIPATION- 2ND LINE, (Reported) Potassium Chloride 20 Meq Tab.er.prt, 20 MEQ PO DAILY, (Reported) Ramipril 5 Mg Capsule, 5 MG PO DAILY, (Reported) Simvastatin 40 Mg Tablet, 40 MG PO 1800, (Reported) Tamsulosin HCl 0.4 Mg Cap, 0.4 MG PO 1700, (Reported) TAKES 30 MINUTES AFTER DINNER Temazepam 7.5 Mg Capsule, 7.5 MG PO HS, (Reported) Timolol 5 Ml Drops, 1 DROP OU BID, (Reported) Trazodone HCl 50 Mg Tablet, 50 MG PO HS, (Reported) Patient Home Medication List Home Medication List Reviewed: Yes Review of Systems Review of Systems Constitutional: no symptoms reported Ears, Nose, Mouth, Throat: no symptoms reported Respiratory: no symptoms reported Cardiovascular: no symptoms reported Gastrointestinal: no symptoms reported Genitourinary: no symptoms reported Musculoskeletal: see HPI Skin: no symptoms reported Psychiatric/Neurological: No Symptoms Reported Past [id number]-Chptro Hx Past Med/Social Hx: Reviewed Nursing Past Med/Soc Hx Patient Social History Type Used: Cigarettes 2nd Hand Smoke Exposure: Yes Recent Foreign Travel: No Contact w/Someone Who Travel: No Recent Hopitalizations: Yes (Discharged 07/19/2020) Immunizations Up To Date Tetanus Booster (TDap): Unknown Date of Pneumonia Vaccine: Nov 24, 2016 Date of Influenza Vaccine: Aug 08, 2012 Seasonal Allergies Seasonal Allergies: No Past Medical History Surgeries: Yes Appendectomy, Cardiac, CABG, Coronary Stent, Gallbladder, Orthopedic, Penile Implant, Renal, Transurethral Resection Respiratory: Yes Asthma, COPD, Emphysema Currently Using CPAP: No Currently Using BIPAP: No Cardiac: Yes (CABG [place] 1999; 16 CARDIAC STENTS) Chronic Edema/Swelling, Coronary Artery Disease, High Cholesterol, Hypertension Neurological: Yes Headaches /Migraines, Seizure Disorder Reproductive Disorders: Yes (ED--PENILE IMPLANT) Sexually Transmitted Disease: No HIV/AIDS: No Genitourinary: Yes Benign Prostatic Hyperpl, Kidney Stones Gastrointestinal: Yes Gastroesophageal Reflux, Ulcer Musculoskeletal: Yes Arthritis Endocrine: Yes Diabetes, Non-Insulin dep HEENT: Yes Cataract, Glaucoma Loss of Vision: Denies Hearing Impairment: Hard of Hearing Cancer: No Psychosocial: Yes Anxiety, Bipolar, Depression Integumentary: No Blood Disorders: No Adverse Reaction/Blood Tranf: No Family Medical History Patient reports no known family medical history. No Pertinent Family Hx Physical Exam Vital Signs Vital Signs - First Documented 09/13/20 02:00 Temp 36.6 Pulse 72 Resp 18 B/P (MAP) 104/52 (69) Pulse Ox 99 O2 Delivery Room Air Capillary Refill : Height, Weight, BMI Height: 5'5.00" Weight: 160lbs. 15.4oz. [id number]; 25.00 BMI Method:Estimated General Appearance: no apparent distress Neck: supple, normal inspection Cardiovascular: normal peripheral pulses, regular rate, rhythm Respiratory: chest non-tender, lungs clear Gastrointestinal: non tender, soft Back: no vertebral tenderness Extremities: other (mild tenderness left hip and left knee, no deformity, swelling or acute injury noted) Neurologic/Psychiatric: alert, normal mood/affect, oriented x 3 Skin: normal color, warm/dry Procedures/Interventions Date of ETT Placement: Sep 01, 2020 Time of ETT Placement: 2148 Progress/Results/Core Measures Results/Orders My Orders Orders - SYL THEODORE DO Hip 2-3 View Left (09/13/20 02:13) Knee 3 View Left (09/13/20 02:13) Vital Signs/I&O 09/13/20 02:00 Temp 36.6 Pulse 72 Resp 18 B/P (MAP) 104/52 (69) Pulse Ox 99 O2 Delivery Room Air Progress Progress Note : Time: 02:43 Progress Note Patient's x-ray shows no acute findings, there is no acute findings on physical exam he will be discharged home in stable condition Diagnostic Imaging Diagonstic Imaging: Xray Plain Films/CT/US/NM/MRI: hip, knee Comments No acute findings on hip or knee x-ray Reviewed: Reviewed by Me Departure Impression Primary Impression: Contusion of left knee and lower leg Qualified Codes: S80.02XA - Contusion of left knee, initial encounter; S80.12XA - Contusion of left lower leg, initial encounter Additional Impression: Fall Qualified Codes: W19.XXXA - Unspecified fall, initial encounter Disposition: 01 HOME, SELF-CARE Condition: Stable Departure-Patient Inst. Referrals: LOUANN COREY MD (PCP/Family) Primary Care Physician Patient Instructions: Getting Up From a Fall, Contusion (DC) Add. Discharge Instructions: Follow-up with your primary care provider as needed All discharge instructions reviewed with patient and/or family. Voiced understanding. SYL THEODORE DO Sep 13, 2020 02:12
[2020-09-13 02:42] VITALS: BP 104/52
--- NOTE | 2020-09-13 07:05 | Diagnostic Imaging Report ---
CLINICAL INDICATIONS: Patient status post fall. EXAM: X-ray of the left knee, 3 views. COMPARISON: X-ray of the left femur dated 03/07/2017. FINDINGS: There is no acute fracture or dislocation. There is interval placement of a partially visualized intramedullary femoral tanvir. There is minimal spurring of the patellofemoral compartment. There is no knee effusion. Vascular calcifications are seen. There is osteopenia. IMPRESSION: There is no acute fracture seen. Dictated by: Dictated on workstation # [id number]
--- NOTE | 2020-09-13 07:05 | Diagnostic Imaging Report ---
CLINICAL INDICATIONS: Patient is status post fall. EXAM: X-ray of pelvis, AP view x-ray of left hip, AP and frog-leg views. COMPARISON: X-ray left hip dated 03/18/2017. FINDINGS: Intramedullary nail affixing the healed proximal left femoral intertrochanteric fracture is seen. There is no interval fracture seen. There are 3 screws internally fixing the healed right proximal femoral neck region. Remainder of this exam shows no evidence of interval acute fracture. Bowel gas obscures some portions of the sacrum and iliac bones. Penile implants are again noted. IMPRESSION: There is no acute fracture or dislocation. Dictated by: Dictated on workstation # [id number]
== END 2020-09-13 02:49 | disposition home or self-care (01) ==
LOC: EDUNIT# 01:59 → ER FS 02:01
DX: S80.02XA Contusion of left knee, initial encounter (principal); S80.12XA Contusion of left lower leg, initial encounter; E78.00 Pure hypercholesterolemia, unspecified; I10 Essential (primary) hypertension; K21.9 Gastro-esophageal reflux disease without esophagitis; F41.9 Anxiety disorder, unspecified; N40.0 Benign prostatic hyperplasia without lower urinary tract symptoms; E11.9 Type 2 diabetes mellitus without complications; F31.9 Bipolar disorder, unspecified; G40.909 Epilepsy, unspecified, not intractable, without status epilepticus; Z20.828 Contact with and (suspected) exposure to other viral communicable diseases; Z95.1 Presence of aortocoronary bypass graft; Z95.5 Presence of coronary angioplasty implant and graft; Z77.22 Contact with and (suspected) exposure to environmental tobacco smoke (acute) (chronic); Z88.0 Allergy status to penicillin; Z88.1 Allergy status to other antibiotic agents; Z88.2 Allergy status to sulfonamides; Z88.8 Allergy status to other drugs, medicaments and biological substances; Z79.84 Long term (current) use of oral hypoglycemic drugs; Z79.82 Long term (current) use of aspirin; W18.39XA Other fall on same level, initial encounter; W22.8XXA Striking against or struck by other objects, initial encounter
CPT/HCPCS: 73502; 73562

== ENCOUNTER 2020-09-15 17:59 | Emergency (ER) | payer MEDICARE, MEDICAID ==
[~2020-09-15] VITALS: Ht 165 cm; Wt 80.0 kg
[2020-09-15 18:00] VITALS: BP 129/68
--- NOTE | 2020-09-15 18:16 | ED Lower Extremity ---
General Chief Complaint: Lower Extremity Stated Complaint: FALL; KNEE PAIN Nursing Triage Note: PT REPORTS HE FELL MAYBE 4 DAYS AGO AND HE WANTED TO GET CHECKED OUT TONIGHT. HE CAME DOWN TO HIS KNEES FROM HIS WHEELCHAIR. C/O RIGHT KNEE PAIN. NO BRUISING, SWELLING, OR LIMITATIONS NOTED. Nursing Sepsis Screen: No Definite Risk Source: patient Exam Limitations: no limitations History of Present Illness Date Seen by Provider: Sep 15, 2020 Time Seen by Provider: 18:00 Initial Comments Patient is a 70-year-old male who presents to the emergency department today with a chief complaint of right lower extremity pain and difficulty lifting his leg. Patient states that he was being moved/transferred by 3 of his caregivers 2 to 4 days ago he cannot exactly recall which, and he fell. He states he fell on his kneecaps. Patient complains of bilateral knee pain. He denies any numbness tingling, he denies that his leg is weak is just painful. He points in the area of his right hip. Patient states that he has had bilateral hip replacements. Patient is for the most part immobile in a wheelchair. He does not ambulate. He denies any complaints of illness, fevers, chills, cough, congestion, no GI or symptoms. All other review of systems reviewed and negative except as stated above. Onset: last week Pain/Injury Location: right hip, right thigh Method of Injury: fell Modifying Factors: Improves With Movement Allergies and Home Medications Allergies Coded Allergies: Penicillins (Verified Allergy, Unknown, 04/22/17) doxycycline (Unverified Allergy, Unknown, RASH, 03/07/17) phenobarbital (Unverified Allergy, Unknown, 03/07/17) RELAXES ME TOO MUCH piperacillin (Unverified Allergy, Unknown, RASH, PT HAS RECEIVED CEFAZOLIN IN THE PAST W/O ISSUE, 03/08/17) sulfamethoxazole (Verified Allergy, Unknown, 04/22/17) terazosin (Unverified Allergy, Unknown, 03/07/17) CHEST PAIN Home Medications Acetaminophen 500 Mg Tablet, 1,000 MG PO Q6H PRN for PAIN-MILD (1-4), (Reported) Aspirin 81 Mg Tablet.dr 81 MG PO DAILY Prescribed by: VANCE VARELA on 09/04/20 1020 Bethanechol Chloride 10 Mg Tablet, 25 MG PO BID, (Reported) Carvedilol 3.125 Mg Tablet, 3.125 MG PO BID Prescribed by: VANCE VARELA on 09/04/20 1020 Clopidogrel Bisulfate 75 Mg Tablet, 75 MG PO DAILY, (Reported) Clotrimazole 15 Gm Cream..g., 1 APPLIC TP BID, (Reported) Docusate Sodium 100 Mg Capsule, 100 MG PO BID, (Reported) Ezetimibe 10 Mg Tablet, 10 MG PO HS, (Reported) Famotidine 20 Mg Tablet, 20 MG PO HS, (Reported) Fenofibrate Nanocrystallized 145 Mg Tablet, 145 MG PO 1700, (Reported) TAKES WITH SUPPER Fluoxetine HCl 20 Mg Capsule, 20 MG PO DAILY, (Reported) Furosemide 40 Mg Tablet, 40 MG PO DAILY, (Reported) Gabapentin 300 Mg Capsule, 300 MG PO DAILY, (Reported) Lamotrigine 100 Mg Tablet, 100 MG PO BID, (Reported) Levetiracetam 500 Mg Tablet, 500 MG PO BID, (Reported) Loratadine 10 Mg Tablet, 10 MG PO DAILY, (Reported) Lorazepam 1 Mg Tablet, 1 MG PO BID, (Reported) Lorazepam 1 Mg Tablet, 1 MG PO 1200 PRN for SEIZURE ACTIVITY, (Reported) Magnesium Oxide 250 Mg Tablet, 250 MG PO DAILY, (Reported) Metformin HCl 850 Mg Tablet, 850 MG PO DAILY, (Reported) Naloxone HCl 4 Mg [place], 4 MG NS UD, (Reported) 1 SPRAY IN ONE NOSTRIL NEEDED FOR OVERDOSE, MAY REPEAT 1 TIME IN 2-3 MINUTES IF NO RESPONSE Nitrofurantoin Monohyd/M-Cryst 100 Mg Capsule, 1 EA PO DAILY, (Reported) Olanzapine 5 Mg Tablet, 5 MG PO DAILY, (Reported) Oxycodone HCl 20 Mg Tab.er.12h, 20 MG PO BID, (Reported) Oxycodone HCl/Acetaminophen 1 Each Tablet, 1 EA PO DAILY PRN for PAIN- BREAKTHROUGH, (Reported) Pioglitazone HCl 30 Mg Tablet, 30 MG PO DAILY, (Reported) Polyethylene Glycol 3350 17 Gm Powd.pack, 17 GM PO DAILY PRN for CONSTIPATION- 2ND LINE, (Reported) Potassium Chloride 20 Meq Tab.er.prt, 20 MEQ PO DAILY, (Reported) Ramipril 5 Mg Capsule, 5 MG PO DAILY, (Reported) Simvastatin 40 Mg Tablet, 40 MG PO 1800, (Reported) Tamsulosin HCl 0.4 Mg Cap, 0.4 MG PO 1700, (Reported) TAKES 30 MINUTES AFTER DINNER Temazepam 7.5 Mg Capsule, 7.5 MG PO HS, (Reported) Timolol 5 Ml Drops, 1 DROP OU BID, (Reported) Trazodone HCl 50 Mg Tablet, 50 MG PO HS, (Reported) Patient Home Medication List Home Medication List Reviewed: Yes Review of Systems Constitutional: no symptoms reported EENTM: no symptoms reported Respiratory: no symptoms reported Cardiovascular: no symptoms reported Gastrointestinal: no symptoms reported Genitourinary: no symptoms reported Musculoskeletal: joint pain (Right hip right thigh), muscle pain Skin: no symptoms reported Psychiatric/Neurological: No Symptoms Reported All Other Systems Reviewed Negative Unless Noted: Yes Past Sdiwsof-Xccvzn-Agujjk Hx Patient Social History Alcohol Use: Denies Use Recreational Drug Use: No Smoking Status: Current Everyday Smoker Type Used: Cigarettes 2nd Hand Smoke Exposure: Yes Recent Foreign Travel: No Contact w/Someone Who Travel: No Recent Infectious Disease Expo: No Recent Hopitalizations: Yes (Discharged 07/19/2020) Physical Abuse: No Sexual Abuse: No Mistreated: No Fear: No Immunizations Up To Date Tetanus Booster (TDap): Unknown Date of Pneumonia Vaccine: Nov 24, 2016 Date of Influenza Vaccine: Aug 08, 2012 Seasonal Allergies Seasonal Allergies: No Past Medical History Surgeries: Yes Appendectomy, Cardiac, CABG, Coronary Stent, Gallbladder, Orthopedic, Penile Implant, Renal, Transurethral Resection Respiratory: Yes Asthma, COPD, Emphysema Currently Using CPAP: No Currently Using BIPAP: No Cardiac: Yes (CABG IN 1999; 16 CARDIAC STENTS) Chronic Edema/Swelling, Coronary Artery Disease, High Cholesterol, Hypertension Neurological: Yes Headaches /Migraines, Seizure Disorder Reproductive Disorders: Yes (ED--PENILE IMPLANT) Sexually Transmitted Disease: No HIV/AIDS: No Genitourinary: Yes Benign Prostatic Hyperpl, Kidney Stones Gastrointestinal: Yes Gastroesophageal Reflux, Ulcer Musculoskeletal: Yes Arthritis Endocrine: Yes Diabetes, Non-Insulin dep HEENT: Yes Cataract, Glaucoma Loss of Vision: Denies Hearing Impairment: Hard of Hearing Cancer: No Psychosocial: Yes Anxiety, Bipolar, Depression Integumentary: No Blood Disorders: No Adverse Reaction/Blood Tranf: No Family Medical History Patient reports no known family medical history. No Pertinent Family Hx Physical Exam Vital Signs Vital Signs - First Documented 09/15/20 18:00 Temp 36.4 Pulse 80 Resp 16 B/P (MAP) 129/68 (88) Pulse Ox 98 O2 Delivery Nasal Cannula O2 Flow Rate 2.00 Capillary Refill : Less Than 3 Seconds Height, Weight, BMI Height: 5'5.00" Weight: 160lbs. 15.4oz. 73.403661mt; 29.00 BMI Method:Estimated General Appearance: WD/WN, no apparent distress Cardiovascular: regular rate, rhythm Respiratory: normal breath sounds, no respiratory distress, no accessory muscle use, wheezing (Scattered, mild expiratory wheezes noted more so on the left than the right) Gastrointestinal: non tender, soft, no pulsatile mass Hips: left hip non-tender, left hip normal inspection, left hip normal range of motion, left hip no evidence of injury; right hip limited range of motion Legs: left leg non-tender, left leg normal inspection, left leg normal range of motion, left leg no evidence of injury; right leg limited range of motion Knees: left knee non-tender, left knee normal inspection, left knee normal range of motion, left knee no evidence of injury Ankles: bilateral ankle non-tender, bilateral ankle normal inspection, bilateral ankle normal range of motion, bilateral ankle no evidence of injury Feet: bilateral foot non-tender, bilateral foot normal inspection, bilateral foot normal range of motion, bilateral foot no evidence of injury Neurologic/Tendon: normal sensation, normal motor functions, normal tendon functions Neurologic/Psychiatric: no motor/sensory deficits, alert, normal mood/affect, oriented x 3 Skin: normal color, warm/dry Procedures/Interventions Date of ETT Placement: Sep 01, 2020 Time of ETT Placement: 2148 Progress/Results/Core Measures Results/Orders My Orders Orders - BIRD MARSH MD Pelvis With Right Hip 2-3 View (09/15/20 18:17) Vital Signs/I&O 09/15/20 18:00 Temp 36.4 Pulse 80 Resp 16 B/P (MAP) 129/68 (88) Pulse Ox 98 O2 Delivery Nasal Cannula O2 Flow Rate 2.00 Blood Pressure Mean: 88 Progress Progress Note : Time: 18:16 Progress Note 70-year-old male presents to the emergency room with a chief complaint of right leg pain. Patient states that he fell 2 to 4 days ago. Evaluation today includes physical exam and 2 views of the right hip as well as a pelvis x-ray. Patient's x-rays will be reviewed. Low suspicion for fracture/dislocation. 1843 Right hip and pelvis x-rays reviewed, patient has bilateral hardware in both hips it appears intact. There is no evidence of fractures or dislocations. Patient is demonstrating good active range of motion at this time. No concerns for acute pathology. Patient will be discharged home conservative management. I reviewed the findings of the x-rays with the patient. All questions are sought and answered, he is comfortable with the plan of care and stable for discharge. Departure Impression Primary Impression: Right leg pain Disposition: 01 HOME, SELF-CARE Condition: Stable Departure-Patient Inst. Decision time for Depature: 18:45 Referrals: LOUANN COREY MD (PCP/Family) Primary Care Physician Patient Instructions: Contusion (DC) Add. Discharge Instructions: Use ibuprofen or tylenol as needed for pain, ice packs to swollen, sore areas. Follow up with your primary care doctor. Return to the emergency department for any further, worsening symptoms or emergent conditions. BIRD MARSH MD Sep 15, 2020 18:16
--- NOTE | 2020-09-15 18:38 | Diagnostic Imaging Report ---
INDICATION: Fell two days ago. Right hip pain. EXAMINATION: Three views of the pelvis and right hip were obtained. FINDINGS: There are changes of prior internal fixation of both hips. No acute fracture, dislocation or other acute bony abnormality is seen. There is no significant change from a prior study from 02/17/2020. IMPRESSION: No acute abnormality is seen. Dictated by: Dictated on workstation # [id number]
[2020-09-16] MEDS ORDERED: CARV3.122 PO (15:06)
[2020-09-16] MEDS ORDERED: PRD10T PO (15:07)
[2020-09-16] MEDS ORDERED: ASPI-999 PO (15:07)
== END 2020-09-15 18:48 | disposition home or self-care (01) ==
LOC: EDUNIT# 17:59 → ER FS 18:00
DX: M79.661 Pain in right lower leg (principal); I10 Essential (primary) hypertension; E78.00 Pure hypercholesterolemia, unspecified; I25.10 Atherosclerotic heart disease of native coronary artery without angina pectoris; E11.9 Type 2 diabetes mellitus without complications; F31.9 Bipolar disorder, unspecified; F41.9 Anxiety disorder, unspecified; G40.909 Epilepsy, unspecified, not intractable, without status epilepticus; G43.909 Migraine, unspecified, not intractable, without status migrainosus; N40.0 Benign prostatic hyperplasia without lower urinary tract symptoms; K21.9 Gastro-esophageal reflux disease without esophagitis; F17.210 Nicotine dependence, cigarettes, uncomplicated; Z95.1 Presence of aortocoronary bypass graft; Z95.5 Presence of coronary angioplasty implant and graft; J43.9 Emphysema, unspecified; Z88.0 Allergy status to penicillin; Z88.1 Allergy status to other antibiotic agents; Z88.8 Allergy status to other drugs, medicaments and biological substances; Z88.2 Allergy status to sulfonamides; Z79.82 Long term (current) use of aspirin; Z79.84 Long term (current) use of oral hypoglycemic drugs
CPT/HCPCS: 73502

== ENCOUNTER 2020-09-16 06:22 | Observation (INO) | payer MEDICARE, MEDICAID ==
[~2020-09-16] VITALS: Ht 167.7 cm; Wt 65.0 kg
--- NOTE | 2020-09-16 06:27 | ED General ---
General Stated Complaint: BREATHING PROBLEM History of Present Illness Date Seen by Provider: Sep 16, 2020 Time Seen by Provider: 06:26 Initial Comments Patient presenting the emergency department for evaluation of cough and shortness of breath that he says started earlier this morning as he was trying to go to the bathroom and says that he was short of breath when walking to the bathroom. He has a cough that is nonproductive. Patient says that he has some chronic back pain but no other pain that is new. Patient says that his lower extremity swelling might be slightly worse. He denies any fevers chills nausea vomiting chest pain abdominal pain or diaphoresis. Patient appears to be in very poor health and based off the review of the records it appears that he has been decompensating. He was admitted twice last month for cardiac and respiratory reasons appears that he has decompensated heart failure and he has COPD as well. EMS reports that they heard wheezing and gave him a breathing treatment and he feels much better now. Patient denies being on antibiotics or steroids at this time. Patient does not wear oxygen at home and his oxygen saturation here is in the mid 90s from the 94-97% range and he appears to be in mild respiratory distress but nontoxic. 09/04 70 yo M with extensive cardiac history that presented with acute respiratory failure and STEMI. Patient was taken to laboratory aide by Dr Goodman and did not require any intervention. He had some total occlusions. Patient remained intubated for a day after the STEMI and was able to transition to RA during his admission. He was also noted to have anemia that trended down with a positive hemoccult and stablized any will need outpatient f.u as he states that it has been many years since he has had a colonoscopy. Previous Echo done several months ago showed normal EF and during cath patient was found to have decompensated CHF with EF 30-35%. Renal Failure resolved during admission. 08/20 Chest pain- Cardiology consulted, troponin negative x 4, no acute EKG changes COPD exacerbation- started on IV solumedrol and albuterol, changed to oral with improved respiratory status and on room air more than 24 hours before d/c. CHF exacerbation- Cardiology consulted, echo with grade 1 diastolic dysfunction, EF normal, given IV lasix and converted to PO on discharge, needs to have BMP and magnesium checked in one week and follow up with primary [facility]. COVID PUI- ruled out DMII- resumed home meds on d/c, consider changing pioglitazone depending on course of CHF. Pyriua- urine culture with mixed bacteria, suspect due to intermittent self- cath, no evidence of infection. Allergies and Home Medications Allergies Coded Allergies: Penicillins (Verified Allergy, Unknown, 04/22/17) doxycycline (Unverified Allergy, Unknown, RASH, 03/07/17) phenobarbital (Unverified Allergy, Unknown, 03/07/17) RELAXES ME TOO MUCH piperacillin (Unverified Allergy, Unknown, RASH, PT HAS RECEIVED CEFAZOLIN IN THE PAST W/O ISSUE, 03/08/17) sulfamethoxazole (Verified Allergy, Unknown, 04/22/17) terazosin (Unverified Allergy, Unknown, 03/07/17) CHEST PAIN Home Medications Acetaminophen 500 Mg Tablet, 1,000 MG PO Q6H PRN for PAIN-MILD (1-4), (Reported) Aspirin 81 Mg Tablet.dr, 81 MG PO DAILY Prescribed by: VANCE VARELA on 09/04/20 1020 Bethanechol Chloride 10 Mg Tablet, 25 MG PO BID, (Reported) Carvedilol 3.125 Mg Tablet, 3.125 MG PO BID Prescribed by: VANCE VARELA on 09/04/20 1020 Clopidogrel Bisulfate 75 Mg Tablet, 75 MG PO DAILY, (Reported) Clotrimazole 15 Gm Cream..g., 1 APPLIC TP BID, (Reported) Docusate Sodium 100 Mg Capsule, 100 MG PO BID, (Reported) Ezetimibe 10 Mg Tablet, 10 MG PO HS, (Reported) Famotidine 20 Mg Tablet, 20 MG PO HS, (Reported) Fenofibrate Nanocrystallized 145 Mg Tablet, 145 MG PO 1700, (Reported) TAKES WITH SUPPER Fluoxetine HCl 20 Mg Capsule, 20 MG PO DAILY, (Reported) Furosemide 40 Mg Tablet, 40 MG PO DAILY, (Reported) Gabapentin 300 Mg Capsule, 300 MG PO DAILY, (Reported) Lamotrigine 100 Mg Tablet, 100 MG PO BID, (Reported) Levetiracetam 500 Mg Tablet, 500 MG PO BID, (Reported) Loratadine 10 Mg Tablet, 10 MG PO DAILY, (Reported) Lorazepam 1 Mg Tablet, 1 MG PO BID, (Reported) Lorazepam 1 Mg Tablet, 1 MG PO 1200 PRN for SEIZURE ACTIVITY, (Reported) Magnesium Oxide 250 Mg Tablet, 250 MG PO DAILY, (Reported) Metformin HCl 850 Mg Tablet, 850 MG PO DAILY, (Reported) Naloxone HCl 4 Mg [place], 4 MG NS UD, (Reported) 1 SPRAY IN ONE NOSTRIL NEEDED FOR OVERDOSE, MAY REPEAT 1 TIME IN 2-3 MINUTES IF NO RESPONSE Nitrofurantoin Monohyd/M-Cryst 100 Mg Capsule, 1 EA PO DAILY, (Reported) Olanzapine 5 Mg Tablet, 5 MG PO DAILY, (Reported) Oxycodone HCl 20 Mg Tab.er.12h, 20 MG PO BID, (Reported) Oxycodone HCl/Acetaminophen 1 Each Tablet, 1 EA PO DAILY PRN for PAIN- BREAKTHROUGH, (Reported) Pioglitazone HCl 30 Mg Tablet, 30 MG PO DAILY, (Reported) Polyethylene Glycol 3350 17 Gm Powd.pack, 17 GM PO DAILY PRN for CONSTIPATION- 2ND LINE, (Reported) Potassium Chloride 20 Meq Tab.er.prt, 20 MEQ PO DAILY, (Reported) Ramipril 5 Mg Capsule, 5 MG PO DAILY, (Reported) Simvastatin 40 Mg Tablet, 40 MG PO 1800, (Reported) Tamsulosin HCl 0.4 Mg Cap, 0.4 MG PO 1700, (Reported) TAKES 30 MINUTES AFTER DINNER Temazepam 7.5 Mg Capsule, 7.5 MG PO HS, (Reported) Timolol 5 Ml Drops, 1 DROP OU BID, (Reported) Trazodone HCl 50 Mg Tablet, 50 MG PO HS, (Reported) Patient Home Medication List Home Medication List Reviewed: Yes Review of Systems Review of Systems Constitutional: no symptoms reported EENTM: no symptoms reported Respiratory: cough, short of breath Cardiovascular: no symptoms reported Gastrointestinal: no symptoms reported Genitourinary: no symptoms reported Musculoskeletal: back pain Skin: no symptoms reported Psychiatric/Neurological: No Symptoms Reported All Other Systems Reviewed Negative Unless Noted: Yes Physical Exam Vital Signs Vital Signs - First Documented 09/16/20 06:26 Temp 36.7 Pulse 88 Resp 20 B/P (MAP) 147/73 (97) Pulse Ox 99 O2 Delivery Room Air Capillary Refill : Height, Weight, BMI Height: '" Weight: lbs. oz. kg; BMI Method: General Appearance: Chronically ill, Mild Distress HEENT: PERRL/EOMI Neck: Supple Respiratory: Crackles, Wheezing Cardiovascular: Regular Rate, Rhythm, Other (1+ PTE BL LE) Gastrointestinal: Non Tender, Soft Back: Normal Inspection Extremity: Normal Capillary Refill Neurologic/Psychiatric: Alert, Oriented x3 Skin: Warm/Dry Progress/Results/Core Measures Suspected Sepsis SIRS Temperature: Pulse: Respiratory Rate: Laboratory Tests 09/16/20 06:42: White Blood Count 7.5 Blood Pressure / Mean: Laboratory Tests 09/16/20 06:42: Creatinine 0.80, INR Comment 1.2, Platelet Count 289, Total Bilirubin 0.4 Results/Orders Lab Results Laboratory Tests Test 09/16/20 06:42 Range/Units White Blood Count 7.5 4.3-11.0 10^3/uL Red Blood Count 3.15 L 4.35-5.85 10^6/uL Hemoglobin 8.0 L 13.3-17.7 G/DL Hematocrit 26 L 40-54 % Mean Corpuscular Volume 81 80-99 FL Mean Corpuscular Hemoglobin 25 25-34 PG Mean Corpuscular Hemoglobin Concent 31 L 32-36 G/DL Red Cell Distribution Width 15.3 H 10.0-14.5 % Platelet Count 289 130-400 10^3/uL Mean Platelet Volume 9.0 7.4-10.4 FL Immature Granulocyte % (Auto) 0 % Neutrophils (%) (Auto) 74 42-75 % Lymphocytes (%) (Auto) 17 12-44 % Monocytes (%) (Auto) 9 0-12 % Eosinophils (%) (Auto) 0 0-10 % Basophils (%) (Auto) 0 0-10 % Neutrophils # (Auto) 5.5 1.8-7.8 X 10^3 Lymphocytes # (Auto) 1.3 1.0-4.0 X 10^3 Monocytes # (Auto) 0.7 0.0-1.0 X 10^3 Eosinophils # (Auto) 0.0 0.0-0.3 10^3/uL Basophils # (Auto) 0.0 0.0-0.1 10^3/uL Immature Granulocyte # (Auto) 0.0 0.0-0.1 10^3/uL Prothrombin Time 15.5 H 12.2-14.7 SEC INR Comment 1.2 0.8-1.4 Activated Partial Thromboplast Time 31 24-35 SEC Sodium Level 132 L 135-145 MMOL/L Potassium Level 4.9 3.6-5.0 MMOL/L Chloride Level 97 L 98-107 MMOL/L Carbon Dioxide Level 23 21-32 MMOL/L Anion Gap 12 5-14 MMOL/L Blood Urea Nitrogen 19 H 7-18 MG/DL Creatinine 0.80 0.60-1.30 MG/DL Estimat Glomerular Filtration Rate > 60 BUN/Creatinine Ratio 24 Glucose Level 85 70-105 MG/DL Calcium Level 9.6 8.5-10.1 MG/DL Corrected Calcium 9.8 8.5-10.1 MG/DL Total Bilirubin 0.4 0.1-1.0 MG/DL Aspartate Amino Transf (AST/SGOT) 29 5-34 U/L Alanine Aminotransferase (ALT/SGPT) 12 0-55 U/L Alkaline Phosphatase 41 40-136 U/L Troponin I < 0.30 <0.30 NG/ML Pro-B-Type Natriuretic Peptide 88771.0 H <75.0 PG/ML Total Protein 6.2 L 6.4-8.2 GM/DL Albumin 3.7 3.2-4.5 GM/DL My Orders Orders - SIRIA PAIGE DO Iv/Invasive Line Insertion .IV start (09/16/20 06:34) Cbc With Automated Diff (09/16/20 06:34) Comprehensive Metabolic Panel (09/16/20 06:34) Ekg Tracing (09/16/20 06:34) Chest 1 View Ap/Pa Only (09/16/20 06:34) Probnp Fs (09/16/20 06:34) Partial Thromboplastin Time (09/16/20 06:34) Protime With Inr (09/16/20 06:34) Troponin I Fs (09/16/20 06:34) Albuterol/Ipra Inhalation Soln (Duoneb I (09/16/20 06:45) Svn Small Volume Nebulizer (09/16/20 06:34) Methylprednisolone Sod Succ (Solu-Medrol (09/16/20 06:45) Furosemide Injection (Lasix Injection) (09/16/20 08:00) Medications Given in ED Current Medications Medications Dose Ordered Sig/Brenna Route Start Time Stop Time Status Last Admin Dose Admin Albuterol/ Ipratropium 3 ml ONCE ONCE INH 09/16/20 06:45 09/16/20 06:46 DC 09/16/20 06:54 3 ML Methylprednisolone Sodium Succinate 125 mg ONCE ONCE IM 09/16/20 06:45 09/16/20 06:46 DC 09/16/20 06:54 125 MG Vital Signs/I&O 09/16/20 06:26 Temp 36.7 Pulse 88 Resp 20 B/P (MAP) 147/73 (97) Pulse Ox 99 O2 Delivery Room Air Capillary Refill : Progress Note : Progress Note Patient with shortness of breath is likely a combination of his CHF and COPD but given he is having worsening cough and wheezing improving with breathing treatments will treat him for COPD with Solu-Medrol and continue breathing treatments and check labs chest x-ray and reassess. Unfortunately patient appears to have pulmonary edema on chest x-ray and BNP has almost doubled from prior. He is now on 2 L his oxygen saturation has gone down into the low 90s. I spoke to Dr. Arellano of the cardiology services and sounds as if he is getting towards end-stage heart failure and they can try and treat him up with Lasix at this time but may need to manage his long-term care with a heart failure program. Patient will be transferred in stable condition and was accepted by Dr. Landers. Departure Impression Primary Impression: Acute exacerbation of congestive heart failure Qualified Codes: I50.43 - Acute on chronic combined systolic (congestive) and diastolic (congestive) heart failure Additional Impressions: Pulmonary edema Qualified Codes: J81.0 - Acute pulmonary edema Hypoxia Disposition: ADMITTED INPATIENT Condition: Improved Transfer Transfer Reason: Exceeds level of care Time Spoke to Accepting Phy: 08:00 Transfer Facility: [facility] Method of Transfer: EMS SIRIA PAIGE DO Sep 16, 2020 06:27
[2020-09-16] MEDS ORDERED: methylPREDNISolone 125 MG (Solu-MEDROL) VIAL IM ONE (06:45)
[2020-09-16] MEDS ORDERED: RT-ALBUTEROL/IPRATROPIUM 3 ML (DUONEB) VIAL INH ONE (06:45)
[2020-09-16 06:49] LABS: BASOPHILS % (AUTO) 0 % (0-10); EOSINOPHILS % (AUTO) 0 % (0-10); HEMATOCRIT 26 % (40-54); LYMPHOCYTES # (AUTO) 1.3 X 10^3 (1.0-4.0); LYMPHOCYTES % (AUTO) 17 % (12-44); MEAN CORPUSCULAR HEMOGLOBIN 25 PG (25-34); MEAN CORPUSCULAR HGB CONC 31 G/DL (32-36); MEAN CORPUSCULAR VOLUME 81 FL (80-99); MONOCYTES # (AUTO) 0.7 X 10^3 (0.0-1.0); MONOCYTES % (AUTO) 9 % (0-12); NEUTROPHILS # (AUTO) 5.5 X 10^3 (1.8-7.8); NEUTROPHILS % (AUTO) 74 % (42-75); PLATELET COUNT 289 10^3/uL (130-400); WHITE BLOOD COUNT 7.5 10^3/uL (4.3-11.0)
[2020-09-16 07:00] LABS: INR 1.2 (0.8-1.4); PROTHROMBIN TIME PATIENT 15.5 SEC (12.2-14.7)
--- NOTE | 2020-09-16 07:07 | Diagnostic Imaging Report ---
Indication: Shortness of breath, coronary disease. Comparison: 09/02/2020 Findings: Single view of the chest demonstrates cardiac enlargement with new borderline edema and vascular congestion. There is no pneumothorax or effusion. The right upper lobe infiltrate is no longer seen. Sternal wires midline. Osseous structures are age-appropriate. Impression: Cardiac enlargement with central vascular congestion and borderline pulmonary edema. Dictated by: Dictated on workstation # [id number]
[2020-09-16 07:18] LABS: ALANINE AMINOTRANSFERASE 12 U/L (0-55); ALBUMIN 3.7 GM/DL (3.2-4.5); ALKALINE PHOSPHATASE 41 U/L (40-136); BILIRUBIN,TOTAL 0.4 MG/DL (0.1-1.0); BUN/CREATININE RATIO 24; CALCIUM 9.6 MG/DL (8.5-10.1); CARBON DIOXIDE 23 MMOL/L (21-32); CHLORIDE 97 MMOL/L (98-107); GFR ESTIMATED > 60; GLUCOSE 85 MG/DL (70-105); POTASSIUM 4.9 MMOL/L (3.6-5.0); SODIUM 132 MMOL/L (135-145); TOTAL PROTEIN 6.2 GM/DL (6.4-8.2)
[2020-09-16] MEDS ORDERED: FUROSEMIDE 40 MG/4 ML INJ (LASIX) IVP ONE (08:00)
--- NOTE | 2020-09-16 08:15 | NUR ---
Pt signed consent for transfer. Not a suspected PUI here, no prior testing known, and lives in own residence with some in-home care givers.
--- NOTE | 2020-09-16 08:16 | NUR ---
Called [facility] Courtney POWERS to request bed. Await room assignment.
--- NOTE | 2020-09-16 08:22 | NUR ---
Notified of bed assignment room 421. Nurse Saul.
--- NOTE | 2020-09-16 08:57 | NUR ---
Attempted to call patients sister Hellen vasquez 2. Left message to have her call back.
--- NOTE | 2020-09-16 10:20 | NUR ---
JONATHON TINSLEY admitted to room 421-1, with an admitting diagnosis of CHF, on 09/16/[address] [facility] ED via EMS, accompanied by EMS. JONATHON TINSLEY introduced to surroundings, call light, bed controls, phone, TV, temperature control, lights, meal times, smoking policy, visitor policy, side rail policy, bathrooms and showers. Patient Rights given to patient in the handbook. JONATHON TINSLEY verbalizes understanding that [facility] is not responsible for the loss or damage to any personal effects or valuables that are kept in the patients posession during their hospitalization. The following Patient Care Plans were discussed with the PT: Discharge Planning, PAIN, CHF. JONATHON TINSLEY verbalizes understanding of Interdisciplinary Patient Education. Patient and/or family were informed about the Rapid Response Team and its purpose.
[2020-09-16 10:53] VITALS: BP 141/61
[2020-09-16] MEDS ORDERED: CATHETER FLUSH 10 ML SYR IV PRN (11:00)
--- NOTE | 2020-09-16 11:00 | NUR ---
Pt nurse requests look at possible sores on patient's posterior side. Left forearm shows a small 1.0cmx 1.0cm x 0.0cm skin tear with an allevyn already covering it. patient turns to right side for assessment of gluteal sore. area reddened, pink, and blanchable at this time. patient then rolls to left side for assessment of gluteal area, 0.5cm X 0.5cm X 0.0cm pink, blanchable area noted. barrier cream applied. enc. patient to lay on right or left side, not simply on his back to help this area stay dry and continue to heal. patient requests to turn onto his right side, pillow bolsters used to help keep patient turned. Barrier cream would help at this time, but the floor stock was out. RN notified, will con't to monitor.
[2020-09-16] MEDS ORDERED: FUROSEMIDE 40 MG/4 ML INJ (LASIX) ONE (11:03)
[2020-09-16] MEDS ORDERED: FUROSEMIDE 40 MG/4 ML INJ (LASIX) IV NR (11:15)
[2020-09-16 12:00] VITALS: BP 136/58
--- NOTE | 2020-09-16 13:10 | NUR ---
PALLIATIVE CARE RN in to see patient at the request of the PRIYA Lindquist. Ameena had gotten a call from [facility] who informed her that they were set to have a meeting with DPOA and patient about transition to Hospice. I visited with the patient in the room at bedside. He is complaining of left sided rib and upper abdominal pain likely associated with his fluid overload. He also complained of a headache. Patient does confirm that he has Oxygen at home that he does not wear all the time. He reports living at home by self but having people help him. Patient does report his desire to be a NO CODE for ventilator and for compressions. I did confirm no CODE with his Living will. I also look back at my note from his stay in August and at that time I noted he does have Oxygen and that he has home care attendants. I have attempted to get in touch with CHANG Veloz..left call back number. I also spoke with Dr. Landers who will be caring for this patient this week.
[2020-09-16] MEDS ORDERED: ACETAMINOPHEN 500 MG TAB (TYLENOL) PO PRN (14:30)
--- NOTE | 2020-09-16 14:32 | History & Physical ---
HPI History of Present Illness: 70 yo male presented to ER this morning due to shortness of breath. He has history of heart failure and uses oxygen at baseline, he states his oxygen broke this morning- when he was trying to pull it closer, the oxygen tube broke off the can. He started feeling short of breath around 4 am. He denies fever, admits occasional cough. Admits nasal congestion associated with oxygen use. He feels very tired and is drowsy at time of my exam and doesn't give clear answers to some questions. He denies headache, constipation, abdominal pain. Admits nausea. Source: patient Exam Limitations: clinical condition Date seen by provider: Sep 16, 2020 Time Seen by Provider: 11:50 Attending Physician Phi Landers MD PCP Claus Couch MD Consult Date of Admission Sep 16, 2020 at 10:43 Home Medications Home Medications Reviewed patient Home Medication Reconciliation performed by pharmacy medication reconciliations fire technician and/or nursing. Patients Allergies have been reviewed. Allergies Coded Allergies: Penicillins (Verified Allergy, Unknown, 09/16/20) doxycycline (Verified Allergy, Unknown, RASH, 09/16/20) phenobarbital (Verified Allergy, Unknown, 09/16/20) RELAXES ME TOO MUCH piperacillin (Verified Allergy, Unknown, RASH, PT HAS RECEIVED CEFAZOLIN IN THE PAST W/O ISSUE, 09/16/20) sulfamethoxazole (Verified Allergy, Unknown, 09/16/20) terazosin (Verified Allergy, Unknown, 09/16/20) CHEST PAIN [id number] Hx Patient Social History Alcohol Use: Denies Use Recreational Drug Use: No Smoking Status: Former Smoker Type Used: Cigarettes 2nd Hand Smoke Exposure: Yes Recent Foreign Travel: No Contact w/other who traveled: No Recent Hopitalizations: Yes (Discharged 07/19/2020) Recent Infectious Disease Expo: No Physical Abuse Screen: No Sexual Abuse: No Immunizations Up To Date Tetanus Booster (TDap): Unknown Date of Pneumonia Vaccine: Nov 24, 2016 Date of Influenza Vaccine: Aug 08, 2012 Past Medical History PMHx: Glaucoma CHF Hypertension COPD Chronic pain Family Medical History Significant Family History: No Pertinent Family Hx Family History: Patient reports no known family medical history. Review of Systems (CHC) Constitutional: see HPI Reviewed Test Results Reviewed Test Results Lab Laboratory Tests Test 09/16/20 06:42 Range/Units White Blood Count 7.5 4.3-11.0 10^3/uL Red Blood Count 3.15 L 4.35-5.85 10^6/uL Hemoglobin 8.0 L 13.3-17.7 G/DL Hematocrit 26 L 40-54 % Mean Corpuscular Volume 81 80-99 FL Mean Corpuscular Hemoglobin 25 25-34 PG Mean Corpuscular Hemoglobin Concent 31 L 32-36 G/DL Red Cell Distribution Width 15.3 H 10.0-14.5 % Platelet Count 289 130-400 10^3/uL Mean Platelet Volume 9.0 7.4-10.4 FL Immature Granulocyte % (Auto) 0 % Neutrophils (%) (Auto) 74 42-75 % Lymphocytes (%) (Auto) 17 12-44 % Monocytes (%) (Auto) 9 0-12 % Eosinophils (%) (Auto) 0 0-10 % Basophils (%) (Auto) 0 0-10 % Neutrophils # (Auto) 5.5 1.8-7.8 X 10^3 Lymphocytes # (Auto) 1.3 1.0-4.0 X 10^3 Monocytes # (Auto) 0.7 0.0-1.0 X 10^3 Eosinophils # (Auto) 0.0 0.0-0.3 10^3/uL Basophils # (Auto) 0.0 0.0-0.1 10^3/uL Immature Granulocyte # (Auto) 0.0 0.0-0.1 10^3/uL Prothrombin Time 15.5 H 12.2-14.7 SEC INR Comment 1.2 0.8-1.4 Activated Partial Thromboplast Time 31 24-35 SEC Sodium Level 132 L 135-145 MMOL/L Potassium Level 4.9 3.6-5.0 MMOL/L Chloride Level 97 L 98-107 MMOL/L Carbon Dioxide Level 23 21-32 MMOL/L Anion Gap 12 5-14 MMOL/L Blood Urea Nitrogen 19 H 7-18 MG/DL Creatinine 0.80 0.60-1.30 MG/DL Estimat Glomerular Filtration Rate > 60 BUN/Creatinine Ratio 24 Glucose Level 85 70-105 MG/DL Calcium Level 9.6 8.5-10.1 MG/DL Corrected Calcium 9.8 8.5-10.1 MG/DL Total Bilirubin 0.4 0.1-1.0 MG/DL Aspartate Amino Transf (AST/SGOT) 29 5-34 U/L Alanine Aminotransferase (ALT/SGPT) 12 0-55 U/L Alkaline Phosphatase 41 40-136 U/L Troponin I < 0.30 <0.30 NG/ML Pro-B-Type Natriuretic Peptide 67733.0 H <75.0 PG/ML Total Protein 6.2 L 6.4-8.2 GM/DL Albumin 3.7 3.2-4.5 GM/DL Radiology 09/16 CXR: Impression: Cardiac enlargement with central vascular congestion and borderline pulmonary edema. Physical Exam-([facility]) Physical Exam Vital Signs VS - Last 72 Hours, by Label 09/16/20 09/16/20 09/16/20 09/16/20 06:26 09:35 10:53 10:53 Temp 36.7 36.5 36.5 Pulse 88 87 95 95 Resp 20 19 18 18 B/P (MAP) 147/73 (97) 136/61 141/61 141/61 (87) Pulse Ox 99 98 96 96 O2 Delivery Room Air Nasal Cannula Nasal Cannula O2 Flow Rate 2.00 2.00 09/16/20 09/16/20 11:48 12:00 Temp 36.3 Pulse 87 94 Resp 18 B/P (MAP) 136/58 (84) Pulse Ox 97 O2 Delivery Nasal Cannula O2 Flow Rate 2.00 Capillary Refill : Less Than 3 Seconds General Appearance: mild distress Respiratory: accessory muscle use, rales Cardiovascular: regular rate, rhythm Gastrointestinal: normal bowel sounds, non tender, soft Extremities: no pedal edema Neurologic/Psychiatric: alert, other (oriented to self and location) Skin: warm/dry Assessment/Plan Assessment/Plan Admission Status: Inpatient Order (span 2 midnights) Reason for Inpatient Admission: CHF exacerbation with multiple underlying comorbidities. (1) Pulmonary edema Status: Acute Assessment & Plan: Recent hospitalizations for fluid overload and elevated BNP. Previous echo with diastolic dysfunction. Echo pending, has had marked diuresis with lasix 80 mg IV given in ER, repeat on arrival. Cardiology consulted, appreciate recommendations. Qualifiers: Qualified Codes: J81.0 - Acute pulmonary edema (2) Hypoxia Status: Acute Assessment & Plan: On home oxygen, although possibly not continuously. Requiring 2 lpm currently, continue treatment for fluid overload and COPD, no clear evidence of COPD exacerbation, suspect more pulmonary edema related. (3) HLD (hyperlipidemia) Status: Chronic (4) CAD (coronary artery disease) Status: Chronic (5) Urinary retention Status: Chronic (6) COPD (chronic obstructive pulmonary disease) Status: Chronic (7) Hypertension Status: Chronic (8) Seizure disorder Status: Chronic (9) Diabetes mellitus Status: Chronic Assessment & Plan: Hold home oral meds, sliding scale insulin, diabetic diet. Qualifiers: (10) Chronic pain Status: Chronic (11) DVT prophylaxis Status: Acute Assessment & Plan: Enoxaparin Clinical Quality Measures DVT/VTE Risk/Contraindication: Risk Factor Score Per Nursin RFS Level Per Nursing on Admit: 4+=Very High PHI LANDERS MD Sep 16, 2020 14:32
[2020-09-16] MEDS ORDERED: CARV3.122 PO (15:06)
[2020-09-16] MEDS ORDERED: ASPI-999 PO (15:07)
[2020-09-16] MEDS ORDERED: PRD10T PO (15:07)
--- NOTE | 2020-09-16 15:38 | NUR ---
I SPOKE WITH [facility] AND WENT THROUGH THE MED LIST THAT THEY FAXED OVER AND WENT THROUGH THE EXTERNAL MED HISTORY TO COMPLETE THIS MED REC. OXYCODONE: STRENGTH ON THE MED LIST IN 5/325MG, HOWEVER THE 7.5/325MG WAS LAST FILLED THEREFORE I PUT THE 7.5/325MG ON THE MED REC.
[2020-09-16 15:51] VITALS: BP 132/60
[2020-09-16] MEDS: CATHETER FLUSH 10 ML SYR IV SCH ×2 (16:07→19:37)
[2020-09-16] MEDS ORDERED: oxyCODONE/APAP 7.5-325 MG (PERCOCET 7.5) TABLET PO PRN (16:15)
[2020-09-16] MEDS ORDERED: polyethylene glycoL POWDER 17 GM (MIRALAX) PACK PO PRN (16:15)
[2020-09-16] MEDS: SIMvastatin 40 MG (ZOCOR) TAB PO SCH (17:05)
[2020-09-16] MEDS: ENOXAPARIN 40 MG/0.4 ML (LOVENOX) SYR SC SCH (17:05)
[2020-09-16] MEDS: TAMSULOSIN 0.4 MG (FLOMAX) CAP PO SCH (17:05)
[2020-09-16] MEDS ORDERED: ONDANSETRON 4 MG/2 ML (SDV) Z0FRAN IVP PRN (19:15)
[2020-09-16] MEDS: FAMOTIDINE 20 MG (PEPCID) TABLET PO SCH (19:27)
[2020-09-16] MEDS: FENOFIBRATE 134 MG (LOFIBRA) CAPSULE PO SCH (19:27)
[2020-09-16] MEDS: eZETimibe 10 MG (ZETIA) TABLET PO SCH (19:27)
[2020-09-16] MEDS: LEVETIRACETAM 500 MG (KEPPRA) TAB PO SCH (19:28)
[2020-09-16] MEDS: GABAPENTIN 300 MG (NEURONTIN) CAP PO SCH (19:28)
[2020-09-16] MEDS: OLANZapine 5 MG (ZyPREXA) TAB PO SCH (19:28)
[2020-09-16] MEDS: DOCUSATE SODIUM 100 MG (COLACE) CAP PO SCH (19:28)
[2020-09-16] MEDS: traZODone 50 MG (DESYREL) TAB PO SCH (19:28)
[2020-09-16] MEDS: BETHANECHOL 10 MG (URECHOLINE) TAB PO SCH (19:29)
[2020-09-16] MEDS: oxyCODONE ER 20 MG (OxyCONTIN CR) TAB PO SCH (19:29)
[2020-09-16] MEDS: TIMOLOL MALEATE 0.5% 5 ML (TIMOPTIC) BTL OU SCH (19:30)
[2020-09-16] MEDS: CARVEDILOL 3.125 MG (COREG) TABLET PO SCH (19:30)
[2020-09-16] MEDS: ASPIRIN 81 MG CHEW (CHILDREN'S ASA) PO SCH (19:30)
[2020-09-16] MEDS: TEMAZEPAM 7.5 MG CAP (RESTORIL) PO SCH (19:37)
--- NOTE | 2020-09-16 19:51 | Consultation-Cardiology ---
HPI-Cardiology Cardiology Consultation: Date of Consultation 09/16/20 Date of Admission Attending Physician Elli Landers MD Admitting Physician Claus Couch MD Consulting Physician Karena ARELLANO MD HPI: Time Seen by a Provider: 10:00 Chief Complaint: Shortness of breath This is a 70-year-old gentleman who has known history of STEMI and was taken to the catheter lab with Dr. Goodman but did not require any intervention. Acute respiratory failure at that point in time, requiring intubation. At that point in time he was also found to be anemic with Hemoccult stool positive. Echocardiogram had shown EF of 30-35 percent with decompensated congestive heart failure. Also had renal failure in that admission. He has history of CAD/CABG and multiple PCI. He presents to [facility] with complains of shortness of breath and cough. Also complains of lower extremity swelling. Denies active smoking. Pertinent family history is negative. Review of Systems-Cardiology Review of Systems Constitutional: As described under HPI; No As described under HPI, No no symptoms reported, No chills, No fever, No lightheadedness Eyes: No As described under HPI, No no symptoms reported, No blindness, No blurred vision, No contact lenses, No drainage, No decreased acuity, No foreign body sensation, No pain, No vision change Ears/Nose/Throat: No As described under HPI, No no symptoms reported, No chronic hearing loss, No ear discharge, No ear pain, No nasal drainage, No ulcerations Respiratory: No no symptoms reported; As described under HPI; No As described under HPI; cough; No orthopnea, No shortness of breath, No SOB with excertion Cardiovascular: No no symptoms reported; As described under HPI; No As describ ed under HPI; chest pain; No edema, No irregular heart rate, No lightheadedness, No palpitations Gastrointestinal: No no symptoms reported, No As described under HPI, No abdomen distended, No abdominal pain, No blood streaked bowels, No constipation, No diarrhea, No nausea, No vomiting, No stool coloration changes Genitourinary: No As described under HPI, No burning, No dysuria, No discharge, No frequency, No flank pain, No hematuria, No urgency Skin: No rash, No skin related problems, No ulcerations Psychiatric/Neurological: No anxiety, No depression, No seizure, No focal weakness, No syncope Hematologic: No bleeding abnormalities All Other Systems Reviewed Negative Unless Noted: Yes [id number] Hx Patient Social History Alcohol Use: Denies Use Recreational Drug Use: No Smoking Status: Former Smoker Type Used: Cigarettes 2nd Hand Smoke Exposure: Yes Recent Foreign Travel: No Recent Infectious Disease Expo: No Hospitalization with Isolation: Denies Physical Abuse Screen: No Sexual Abuse: No Immunizations Up To Date Tetanus Booster (TDap): Unknown Date of Pneumonia Vaccine: Nov 24, 2016 Date of Influenza Vaccine: Aug 08, 2012 Past Medical History PMH As described under Assessment. Family Medical History Family Medical History: He does not report fam h/o early CAD Family History: Patient reports no known family medical history. Allergies and Home Medications Allergies Coded Allergies: Penicillins (Verified Allergy, Unknown, 09/16/20) doxycycline (Verified Allergy, Unknown, RASH, 09/16/20) phenobarbital (Verified Allergy, Unknown, 09/16/20) RELAXES ME TOO MUCH piperacillin (Verified Allergy, Unknown, RASH, PT HAS RECEIVED CEFAZOLIN IN THE PAST W/O ISSUE, 09/16/20) sulfamethoxazole (Verified Allergy, Unknown, 09/16/20) terazosin (Verified Allergy, Unknown, 09/16/20) CHEST PAIN Home Medications Acetaminophen 500 Mg Tablet, 1,000 MG PO Q6H PRN for PAIN-MILD (1-4), (Reported) Aspirin 81 Mg Tab.chew, 81 MG PO HS, (Reported) Bethanechol Chloride 10 Mg Tablet, 25 MG PO BID, (Reported) Carvedilol 3.125 Mg Tablet, 3.125 MG PO BID, (Reported) Clopidogrel Bisulfate 75 Mg Tablet, 75 MG PO DAILY, (Reported) Clotrimazole 15 Gm Cream..g., 1 APPLIC TP BID, (Reported) Docusate Sodium 100 Mg Capsule, 100 MG PO BID, (Reported) Ezetimibe 10 Mg Tablet, 10 MG PO HS, (Reported) Famotidine 20 Mg Tablet, 20 MG PO HS, (Reported) Fenofibrate Nanocrystallized 145 Mg Tablet, 145 MG PO 1700, (Reported) TAKES WITH SUPPER Fluoxetine HCl 20 Mg Capsule, 20 MG PO DAILY, (Reported) Furosemide 40 Mg Tablet, 40 MG PO DAILY, (Reported) Gabapentin 300 Mg Capsule, 300 MG PO HS, (Reported) Lamotrigine 100 Mg Tablet, 100 MG PO BID, (Reported) Levetiracetam 500 Mg Tablet, 500 MG PO BID, (Reported) Loratadine 10 Mg Tablet, 10 MG PO DAILY, (Reported) Lorazepam 1 Mg Tablet, 1 MG PO TID PRN for ANXIETY, (Reported) Magnesium Oxide 250 Mg Tablet, 250 MG PO DAILY, (Reported) Metformin HCl 850 Mg Tablet, 850 MG PO DAILY, (Reported) Naloxone HCl 4 Mg [place], 4 MG NS UD, (Reported) 1 SPRAY IN ONE NOSTRIL NEEDED FOR OVERDOSE, MAY REPEAT 1 TIME IN 2-3 MINUTES IF NO RESPONSE Nitrofurantoin Monohyd/M-Cryst 100 Mg Capsule, 1 EA PO DAILY, (Reported) Olanzapine 5 Mg Tablet, 5 MG PO HS, (Reported) Oxycodone HCl 20 Mg Tab.er.12h, 20 MG PO BID, (Reported) Oxycodone HCl/Acetaminophen 1 Each Tablet, 1 EA PO DAILY PRN for PAIN-[facility], (Reported) Polyethylene Glycol 3350 17 Gm Powd.pack, 17 GM PO DAILY PRN for CONSTIPATION- 2ND LINE, (Reported) Potassium Chloride 20 Meq Tab.er.prt, 20 MEQ PO DAILY, (Reported) Prednisone 10 Mg Tab, MG PO DAILY, (Reported) TAKING TAPER DOSE Ramipril 5 Mg Capsule, 5 MG PO DAILY, (Reported) Simvastatin 40 Mg Tablet, 40 MG PO 1800, (Reported) Tamsulosin HCl 0.4 Mg Cap, 0.4 MG PO 1700, (Reported) TAKES 30 MINUTES AFTER DINNER Temazepam 7.5 Mg Capsule, 7.5 MG PO HS, (Reported) Timolol 5 Ml Drops, 1 DROP OU BID, (Reported) Trazodone HCl 50 Mg Tablet, 50 MG PO HS, (Reported) Patient Home Medication List Home Medication List Reviewed: Yes Physical Exam-Cardiology Physical Exam Vital Signs/I&O 09/17/20 09/17/20 09/17/20 09/17/20 06:47 08:00 08:00 11:21 Temp 35.9 Pulse 77 64 Resp 16 B/P (MAP) 150/64 (92) Pulse Ox 99 O2 Delivery Nasal Cannula Nasal Cannula Nasal Cannula O2 Flow Rate 2.00 2.00 2.00 09/17/20 09/17/20 09/17/20 12:00 12:36 15:44 Temp 36.0 36.3 Pulse 58 70 62 Resp 16 18 B/P (MAP) 120/56 (77) 104/55 (71) Pulse Ox 96 99 O2 Delivery Nasal Cannula Nasal Cannula O2 Flow Rate 2.00 2.00 09/17/20 00:00 Intake Total 1440 ml Output Total 4400 ml Balance -2960 ml Capillary Refill : Less Than 3 SecondsLess Than 3 Seconds Constitutional: appears stated age, AAO x 3; No apparent distress; well- developed, well-nourished HEENT: PERRL; No discharge; hearing is well preserved, oral hygience is good; No ulceration, No xanthelasmas are seen Neck: No carotid bruit; carotid pulses are 2 + bilaterally Respiratory: other (decreased breath sounds bilaterally.) Cardiovascular: regular rate-rhythm, S1 and S2; No diastolic murmur, No systolic murmur Gastrointestinal: soft, audible bowel sounds; No spleenomegaly Rectal: deferred Extremities: normal range of motion, non-tender, normal inspection, pedal edema; No clubbing, No cyanosis, No significant edema Neurologic/Psychiatric: no motor/sensory deficits, alert, normal mood/affect, oriented x 3, power is 5/5 both on sides Skin: No rash, No ulcerations Data Review Labs Laboratory Tests 09/17/20 05:58: White Blood Count 5.2, Red Blood Count 3.22L, Hemoglobin 8.1L, Hematocrit 26L, Mean Corpuscular Volume 80, Mean Corpuscular Hemoglobin 25, Mean Corpuscular Hemoglobin Concent 31L, Red Cell Distribution Width 15.0H, Platelet Count 266, Mean Platelet Volume 8.6L, Immature Granulocyte % (Auto) 0, Neutrophils (%) (Auto) 57, Lymphocytes (%) (Auto) 31, Monocytes (%) (Auto) 11, Eosinophils (%) (Auto) 0, Basophils (%) (Auto) 0, Neutrophils # (Auto) 3.0, Lymphocytes # (Auto) 1.6, Monocytes # (Auto) 0.6, Eosinophils # (Auto) 0.0, Basophils # (Auto) 0.0, Immature Granulocyte # (Auto) 0.0, Sodium Level 135, Potassium Level 4.1, C hloride Level 93L, Carbon Dioxide Level 32, Anion Gap 10, Blood Urea Nitrogen 31H, Creatinine 1.21, Estimat Glomerular Filtration Rate 59, BUN/Creatinine Ratio 26, Glucose Level 106H, Calcium Level 9.6, Corrected Calcium 9.9, Total Bilirubin 0.4, Aspartate Amino Transf (AST/SGOT) 12, Alanine Aminotransferase (ALT/SGPT) 13, Alkaline Phosphatase 31L, Total Protein 6.1L, Albumin 3.6 ECG Impression ECG Initial ECG Rhythm: Normal Sinus Initial ECG Impression: Nonspecific Changes A/P-Cardiology Assessment/Admission Diagnosis COPD exacerbation, Decompensated systolic congestive heart failure, CABG, CAD, ischemic cardiomyopathy Anemia Plan COPD exacerbation, inhalers and IV steroids. Defer to the primary team. Acute Decompensated systolic congestive heart failure, recent echocardiogram showed an EF of 30-35 percent. Continue IV Lasix. Patient has severe end-stage ischemic cardiomyopathy. Will likely require transfer to advanced heart failure center for further management once he is ambulatory. History of CABG and coronary angiography done on 08/[address] Goodman, which showed total occlusion of the proximal LAD, vein graft to the diagonal artery has multiple stent and is patent filling the LAD system. Large dominant circumflex artery with occluded first OM branch and chronic total occlusion of t he vein graft probably to OM branch. Dr. Goodman tried to intervene on the chronic total occlusion without success. Small dominant right with severe stenosis of the midportion. EF during coronary angiography and left heart catheterization was 50 percent. Thank you for your consultation. Please call me if you have any questions. Linda Arellano MD, FACP, FACC, FSCAI, FHRS, CCDS Interventional Cardiology Cardiac Electrophysiology Vascular Medicine and Endovascular Interventions Clinical Quality Measures DVT/VTE Risk/Contraindication: Risk Factor Score Per Nursin RFS Level Per Nursing on Admit: 4+=Very High Karena ARELLANO MD Sep 16, 2020 19:51
[2020-09-16 20:10] VITALS: BP 114/52
[2020-09-16] MEDS: LORazepam 1 MG (ATIVAN) TAB PO PRN (21:16)
[2020-09-17] VITALS (7 sets, daily range): BP systolic 91–150; BP diastolic 52–64
[2020-09-17] MEDS: CATHETER FLUSH 10 ML SYR IV SCH ×3 (05:18→20:47)
[2020-09-17 06:12] LABS: BASOPHILS % (AUTO) 0 % (0-10); EOSINOPHILS % (AUTO) 0 % (0-10); HEMATOCRIT 26 % (40-54); HEMOGLOBIN 8.1 g/dL (13.3-17.7); LYMPHOCYTES # (AUTO) 1.6 10^3/uL (1.0-4.0); LYMPHOCYTES % (AUTO) 31 % (12-44); MEAN CORPUSCULAR HEMOGLOBIN 25 pg (25-34); MEAN CORPUSCULAR HGB CONC 31 g/dL (32-36); MEAN CORPUSCULAR VOLUME 80 fL (80-99); MEAN PLATELET VOLUME 8.6 fL (9.0-12.2); MONOCYTES # (AUTO) 0.6 10^3/uL (0.0-1.0); MONOCYTES % (AUTO) 11 % (0-12); NEUTROPHILS % (AUTO) 57 % (42-75); PLATELET COUNT 266 10^3/uL (130-400); WHITE BLOOD COUNT 5.2 10^3/uL (4.3-11.0)
[2020-09-17 06:38] LABS: ALBUMIN 3.6 GM/DL (3.2-4.5); BILIRUBIN,TOTAL 0.4 MG/DL (0.1-1.0); CALCIUM 9.6 MG/DL (8.5-10.1); CREATININE SERUM 1.21 MG/DL (0.60-1.30); POTASSIUM 4.1 MMOL/L (3.6-5.0); TOTAL PROTEIN 6.1 GM/DL (6.4-8.2)
[2020-09-17] MEDS: metFORMIN 850 MG (GLUCOPHAGE) TAB PO SCH (08:13)
[2020-09-17] MEDS: BETHANECHOL 10 MG (URECHOLINE) TAB PO SCH ×2 (08:13→20:47)
[2020-09-17] MEDS: RAMIPRIL 5 MG (ALTACE) CAP PO SCH (08:13)
[2020-09-17] MEDS: DOCUSATE SODIUM 100 MG (COLACE) CAP PO SCH ×2 (08:13→20:45)
[2020-09-17] MEDS: LEVETIRACETAM 500 MG (KEPPRA) TAB PO SCH ×2 (08:13→20:46)
[2020-09-17] MEDS: NITROFURANTOIN 100 MG (MACROBID) CAPSULE PO SCH (08:14)
[2020-09-17] MEDS: MAGNESIUM OXIDE (MAG-OX)400 MG TAB PO SCH (08:14)
[2020-09-17] MEDS: CARVEDILOL 3.125 MG (COREG) TABLET PO SCH ×2 (08:14→20:46)
[2020-09-17] MEDS: FLUoxetine HCL 20 MG (PROzac) CAP PO SCH (08:14)
[2020-09-17] MEDS: TIMOLOL MALEATE 0.5% 5 ML (TIMOPTIC) BTL OU SCH ×2 (08:15→20:50)
[2020-09-17] MEDS: CLOPIDOGREL 75 MG (PLAVIX) TABLET PO SCH (08:15)
[2020-09-17] MEDS: oxyCODONE ER 20 MG (OxyCONTIN CR) TAB PO SCH ×2 (08:15→20:46)
--- NOTE | 2020-09-17 09:31 | NUR ---
Palliative Care RN in to see patient. He has diuresed significantly and is feeling like himself today. Denies pain in his rib abdomen area as he had yesterday. Dr Landers indicates possible discharge today if Cardiology feels that he is ready. Hellen his sister does the transport. He has caregivers that help him through the day and ento the night. He reports having to straight cath himself every 6 hours but that if he is going to have an accident it is always in the morning after 4 when his attendants leave...and he laughed. Patient reports that he is going to get physical therapy to get him up and moving. He had [facility] previously and it was reported to us by them that they were going to discuss transition to Hospcie with the sister, Hellen.
[2020-09-17] MEDS ORDERED: FUROSEMIDE 40 MG (LASIX) TAB PO NR (10:30)
--- NOTE | 2020-09-17 11:46 | Progress Note ---
Subjective Subjective/Events-last exam Afebrile, feeling much better, states breathing feels about baseline for him. Discussed that we had heard hospice was being considered outpatient and he stated that sounded okay, but his sister is the one who makes those kind of decisions, and she will be working until 4 pm. Objective Exam Last Set of Vital Signs Vital Signs Date Time Temp Pulse Resp B/P (MAP) Pulse Ox O2 Delivery O2 Flow Rate FiO2 09/17/20 11:21 Nasal Cannula 2.00 09/17/20 08:00 35.9 64 16 150/64 (92) 99 Capillary Refill : Less Than 3 SecondsLess Than 3 Seconds I&O Intake and Output 09/17/20 00:00 Intake Total 1440 ml Output Total 7900 ml Balance -6460 ml Intake Oral 1440 ml Output Urine Total 7900 ml Daily Weight Change Unsure Unsure/Unresponsive General: Alert, No Acute Distress Lungs: Other (rales) Heart: Regular Rate Abdomen: Normal Bowel Sounds, Soft Psych/Mental Status: Mental Status NL, Mood NL Results/Procedures Lab Laboratory Tests 09/17/20 05:58: White Blood Count 5.2, Red Blood Count 3.22L, Hemoglobin 8.1L, Hematocrit 26L, Mean Corpuscular Volume 80, Mean Corpuscular Hemoglobin 25, Mean Corpuscular Hemoglobin Concent 31L, Red Cell Distribution Width 15.0H, Platelet Count 266, Mean Platelet Volume 8.6L, Immature Granulocyte % (Auto) 0, Neutrophils (%) (Auto) 57, Lymphocytes (%) (Auto) 31, Monocytes (%) (Auto) 11, Eosinophils (%) (Auto) 0, Basophils (%) (Auto) 0, Neutrophils # (Auto) 3.0, Lymphocytes # (Auto) 1.6, Monocytes # (Auto) 0.6, Eosinophils # (Auto) 0.0, Basophils # (Auto) 0.0, Immature Granulocyte # (Auto) 0.0, Sodium Level 135, Potassium Level 4.1, Chloride Level 93L, Carbon Dioxide Level 32, Anion Gap 10, Blood Urea Nitrogen 31H, Creatinine 1.21, Estimat Glomerular Filtration Rate 59, BUN/Creatinine Ratio 26, Glucose Level 106H, Calcium Level 9.6, Corrected Calcium 9.9, Total Bilirubin 0.4, Aspartate Amino Transf (AST/SGOT) 12, Alanine Aminotransferase (A LT/SGPT) 13, Alkaline Phosphatase 31L, Total Protein 6.1L, Albumin 3.6 Radiology 09/16 CXR: Impression: Cardiac enlargement with central vascular congestion and borderline pulmonary edema. Assessment/Plan Assessment/Plan (1) Pulmonary edema Status: Acute Assessment & Plan: Recent hospitalizations for fluid overload and elevated BNP. Previous echo with diastolic dysfunction. Echo pending, has had marked diuresis with lasix 80 mg IV given in ER, repeat on arrival. Cardiology consulted, appreciate recommendations. 09/17- resume home oral lasix, echo pending Qualifiers: Qualified Codes: J81.0 - Acute pulmonary edema (2) Hypoxia Status: Acute Assessment & Plan: On home oxygen, although possibly not continuously. Requiring 2 lpm currently, continue treatment for fluid overload and COPD, no clear evidence of COPD exacerbation, suspect more pulmonary edema related. (3) HLD (hyperlipidemia) Status: Chronic (4) CAD (coronary artery disease) Status: Chronic (5) Urinary retention Status: Chronic (6) COPD (chronic obstructive pulmonary disease) Status: Chronic (7) Hypertension Status: Chronic (8) Seizure disorder Status: Chronic (9) Diabetes mellitus Status: Chronic Assessment & Plan: Hold home oral meds, sliding scale insulin, diabetic diet. Qualifiers: (10) Chronic pain Status: Chronic (11) DVT prophylaxis Status: Acute Assessment & Plan: Enoxaparin Clinical Quality Measures DVT/VTE Risk/Contraindication: Risk Factor Score Per Nursin RFS Level Per Nursing on Admit: 4+=Very High PHI ALVARADO MD Sep 17, 2020 11:46
--- NOTE | 2020-09-17 13:48 | NUR ---
Pastoral care visit, life review, provided support and prayer.
--- NOTE | 2020-09-17 14:08 | NUR ---
RD ASSESSMENT PMHx: CHF; COPD; HTN; DM PT INTERACTION: Pt was awake and pleasant during dietary consult for MST score. Note pt has AMS and needed redirection at times during assessment. Pt states current appetite is "so-so." Note PO intake 38% x2meal, per chart review. Pt states following a regular diet at home, and has no issues with chewing/swallowing food "when I have my dentures." Note pt does not currently have dentures with him. Pt states some recent issues with nausea. Pt states no recent issues with constipation or diarrhea, and that his last BM was "Wednesday." Note pt has no recorded BM, and currently on bowel regimen of colace BID, per chart review. Pt states some recent wt loss, but is unsure of amount/timeframe. Note recent 12# wt loss x6mon, per chart review. This is not significant wt loss at 7.7%, per ASPEN guidelines. Pt states current DM management is good. "I trying to keep my sugars at 145 or lower." Note unable to determine recent HbA1c, per chart review. Upon visual assessment, pt appears to be adequately nourished with no visible signs of muscle/fat loss, and a BMI of 24.3 (Normal BMI for age). Given visual assessment, PO intake, and wt hx, pt does not meet criteria for malnutrition per ASPEN guidelines. ABNORMAL NUTRITION-RELATED LAB VALUES LOW: Cl 93; alkphos 31; Pro 6.1; HIGH: 68-82 g Pro | 1.0-1.2 g Pro/kg Est. kcal needs: 2855-0894 kcal | 25-30 kcal/kg Est. Pro needs: 68-82 g Pro | 1.0-1.2 g Pro/kg PES STATEMENT: Inadequate oral intake (NI-2.1) related to loss of appetite and nausea, as evidenced by pt interview and avg PO intake 38% x2meal. INTERVENTION: Continue with current diet order of 2000mg Na diet. Pt may benefit from consistent CHO restriction if blood glucose levels become elevated. Add Glucerna (alessandro/van) to meals TID, for increased kcal intake. Provides 220 kcal and 10 g Pro per serving. Did not offer diet education on DM management, d/t pt's AMS. Will attempt to offer again when pt is more lucid, prior to discharge. Will continue to follow and reassess as pt needs, intake, and status change. Mahsa Camacho, MS RD LD
[2020-09-17] MEDS: ENOXAPARIN 40 MG/0.4 ML (LOVENOX) SYR SC SCH (14:30)
--- NOTE | 2020-09-17 16:43 | Cardiology Progress Note ---
Cardiology SOAP Progress Note Subjective: Improved shortness of breath. Complains of fatigue. Objective: I&O/Vital Signs 09/17/20 09/17/20 09/17/20 09/17/20 06:47 08:00 08:00 11:21 Temp 35.9 Pulse 77 64 Resp 16 B/P (MAP) 150/64 (92) Pulse Ox 99 O2 Delivery Nasal Cannula Nasal Cannula Nasal Cannula O2 Flow Rate 2.00 2.00 2.00 09/17/20 09/17/20 09/17/20 12:00 12:36 15:44 Temp 36.0 36.3 Pulse 58 70 62 Resp 16 18 B/P (MAP) 120/56 (77) 104/55 (71) Pulse Ox 96 99 O2 Delivery Nasal Cannula Nasal Cannula O2 Flow Rate 2.00 2.00 09/17/20 00:00 Intake Total 1440 ml Output Total 4400 ml Balance -2960 ml Weight (Pounds): 160 Weight (Ounces): 15.4 Weight (Calculated Kilograms): 73.980228 Constitutional: appears stated age, AAO x 3; No apparent distress; well- developed, well-nourished Respiratory: other (decreased breath sounds bilaterally.) Cardiovascular: regular rate-rhythm, S1 and S2; No diastolic murmur, No systolic murmur Gastrointestional: soft, audible bowel sounds; No spleenomegaly Extremities: normal range of motion, non-tender, normal inspection, pedal edema; No clubbing, No cyanosis, No significant edema Neurologic/Psychiatric: no motor/sensory deficits, alert, normal mood/affect, oriented x 3, power is 5/5 both on sides Skin: No rash, No ulcerations Results/Procedures: Labs Laboratory Tests 09/17/20 05:58: White Blood Count 5.2, Red Blood Count 3.22L, Hemoglobin 8.1L, Hematocrit 26L, Mean Corpuscular Volume 80, Mean Corpuscular Hemoglobin 25, Mean Corpuscular Hemoglobin Concent 31L, Red Cell Distribution Width 15.0H, Platelet Count 266, Mean Platelet Volume 8.6L, Immature Granulocyte % (Auto) 0, Neutrophils (%) ( Auto) 57, Lymphocytes (%) (Auto) 31, Monocytes (%) (Auto) 11, Eosinophils (%) (Auto) 0, Basophils (%) (Auto) 0, Neutrophils # (Auto) 3.0, Lymphocytes # (Auto) 1.6, Monocytes # (Auto) 0.6, Eosinophils # (Auto) 0.0, Basophils # (Auto) 0.0, Immature Granulocyte # (Auto) 0.0, Sodium Level 135, Potassium Level 4.1, Chloride Level 93L, Carbon Dioxide Level 32, Anion Gap 10, Blood Urea Nitrogen 31H, Creatinine 1.21, Estimat Glomerular Filtration Rate 59, BUN/Creatinine Rat io 26, Glucose Level 106H, Calcium Level 9.6, Corrected Calcium 9.9, Total Bilirubin 0.4, Aspartate Amino Transf (AST/SGOT) 12, Alanine Aminotransferase (ALT/SGPT) 13, Alkaline Phosphatase 31L, Total Protein 6.1L, Albumin 3.6 A/P: Assessment/Dx: COPD exacerbation, Decompensated systolic congestive heart failure, CABG, CAD, ischemic cardiomyopathy Anemia Plan: COPD exacerbation, inhalers and IV steroids. Defer to the primary team. Acute Decompensated systolic congestive heart failure, recent echocardiogram showed an EF of 30-35 percent. Continue IV Lasix. Patient has severe end-stage ischemic cardiomyopathy. Will likely require transfer to advanced heart failure center for further management once he is ambulatory. History of CABG and coronary angiography done on 08/[address] Goodman, which showed total occlusion of the proximal LAD, vein graft to the diagonal artery has multiple stent and is patent filling the LAD system. Large dominant circumflex artery with occluded first OM branch and chronic total occlusion of the vein graft probably to OM branch. Dr. Goodman tried to intervene on the chronic total occlusion without success. Small dominant right with severe stenosis of the midportion. EF during coronary angiography and left heart catheterization was 50 percent. Thank you for your consultation. Please call me if you have any questions. Linda Arellano MD, FACP, FACC, FSCAI, FHRS, CCDS Interventional Cardiology Cardiac Electrophysiology Vascular Medicine and Endovascular Interventions Karena ARELLANO MD Sep 17, 2020 16:43
--- NOTE | 2020-09-17 17:07 | NUR ---
this RN took over patient care at this time. patient resting with eyed closed, verbalizes no needs at this time
[2020-09-17] MEDS: TAMSULOSIN 0.4 MG (FLOMAX) CAP PO SCH (17:17)
[2020-09-17] MEDS: SIMvastatin 40 MG (ZOCOR) TAB PO SCH (17:17)
[2020-09-17] MEDS: FAMOTIDINE 20 MG (PEPCID) TABLET PO SCH (20:45)
[2020-09-17] MEDS: GABAPENTIN 300 MG (NEURONTIN) CAP PO SCH (20:45)
[2020-09-17] MEDS: traZODone 50 MG (DESYREL) TAB PO SCH (20:45)
[2020-09-17] MEDS: ASPIRIN 81 MG CHEW (CHILDREN'S ASA) PO SCH (20:46)
[2020-09-17] MEDS: eZETimibe 10 MG (ZETIA) TABLET PO SCH (20:46)
[2020-09-17] MEDS: OLANZapine 5 MG (ZyPREXA) TAB PO SCH (20:46)
[2020-09-17] MEDS: FENOFIBRATE 134 MG (LOFIBRA) CAPSULE PO SCH (20:46)
[2020-09-17] MEDS: LORazepam 1 MG (ATIVAN) TAB PO PRN (20:53)
[2020-09-17] MEDS: TEMAZEPAM 7.5 MG CAP (RESTORIL) PO SCH (20:53)
[2020-09-18 04:02] VITALS: BP 98/53
[2020-09-18 06:00] LABS: HEMOGLOBIN 7.8 g/dL (13.3-17.7); MEAN PLATELET VOLUME 8.7 fL (9.0-12.2); WHITE BLOOD COUNT 5.4 10^3/uL (4.3-11.0)
[2020-09-18 06:07] LABS: CHLORIDE 95 MMOL/L (98-107); POTASSIUM 3.9 MMOL/L (3.6-5.0); SODIUM 137 MMOL/L (135-145)
[2020-09-18 06:08] LABS: CALCIUM 9.2 MG/DL (8.5-10.1)
[2020-09-18 06:09] LABS: GLUCOSE 83 MG/DL (70-105)
[2020-09-18 06:10] LABS: CARBON DIOXIDE 28 MMOL/L (21-32)
[2020-09-18 06:13] LABS: CREATININE SERUM 1.16 MG/DL (0.60-1.30); GFR ESTIMATED > 60
[2020-09-18 06:14] LABS: BUN/CREATININE RATIO 32
[2020-09-18] MEDS: CATHETER FLUSH 10 ML SYR IV SCH ×2 (06:14→14:21)
[2020-09-18 08:00] VITALS: BP 128/58
[2020-09-18] MEDS: MAGNESIUM OXIDE (MAG-OX)400 MG TAB PO SCH (08:55)
--- NOTE | 2020-09-18 08:55 | NUR ---
DISCHARGE PLANNING: this Palliative Care RN had message to call Salma, with [facility]. She informed this RN that patient's DPOA/Sister, Hellen, let them know that instead of HHC on discharge that he would go with Hospice. I have been unable to speak directly with the sister due to her position as a teacher. I will let Dr. Landers know and send the clinical information and discharge orders when available. Sister is usually in charge of transport and expect this to be the case for this discharge as well. Addendum: 09/18/20 at 0948 by STEPHAN KEY RN AGNES RN was able to get in touch with patient's sister. She teaches and will be here after 4 to pick him up. I will arrange with Hospice for her to pickle sorter a "go tank" for travel home. SHe will be at the ED entrance for pickle sorter.
[2020-09-18] MEDS: metFORMIN 850 MG (GLUCOPHAGE) TAB PO SCH (08:56)
[2020-09-18] MEDS: RAMIPRIL 5 MG (ALTACE) CAP PO SCH (08:56)
[2020-09-18] MEDS: CARVEDILOL 3.125 MG (COREG) TABLET PO SCH (08:56)
[2020-09-18] MEDS: FLUoxetine HCL 20 MG (PROzac) CAP PO SCH (08:56)
[2020-09-18] MEDS: TIMOLOL MALEATE 0.5% 5 ML (TIMOPTIC) BTL OU SCH (08:56)
[2020-09-18] MEDS: DOCUSATE SODIUM 100 MG (COLACE) CAP PO SCH (08:57)
[2020-09-18] MEDS: LEVETIRACETAM 500 MG (KEPPRA) TAB PO SCH (08:57)
[2020-09-18] MEDS: CLOPIDOGREL 75 MG (PLAVIX) TABLET PO SCH (08:57)
[2020-09-18] MEDS: oxyCODONE ER 20 MG (OxyCONTIN CR) TAB PO SCH (08:57)
[2020-09-18] MEDS: BETHANECHOL 10 MG (URECHOLINE) TAB PO SCH (08:57)
[2020-09-18] MEDS ORDERED: FUROSEMIDE 40 MG (LASIX) TAB PO SCH (09:00)
[2020-09-18] MEDS: NITROFURANTOIN 100 MG (MACROBID) CAPSULE PO SCH (09:02)
[2020-09-18 12:00] VITALS: BP 160/75
--- NOTE | 2020-09-18 14:46 | Cardiology Progress Note ---
Subjective Date Seen by Provider: Sep 18, 2020 Time Seen by Provider: 11:05 Subjective/Events-last exam Patient sitting up in bed, denies any chest pain or dyspnea. Review of Systems General: No Chills, No Night Sweats; Fatigue, Malaise; No Appetite, No Other HEENT: No Head Aches, No Visual Changes, No Eye Pain, No Ear Pain, No Dysphasia, No Sinus Congestion, No Post Nasal Drip, No Sore Throat, No Other Pulmonary: No Dyspnea, No Cough, No Pleuritic Chest Pain, No Other Cardiovascular: No: Chest Pain, Palpitations, Orthopnea, Paroxysmal Noc. Dyspnea, Edema, Lt Headedness, Other Objective-Cardiology Exam Last Set of Vital Signs Vital Signs 09/18/20 09/18/20 12:00 12:27 Temp 35.6 Pulse 60 Resp 18 B/P (MAP) 160/75 (103) Pulse Ox 98 O2 Delivery Nasal Cannula O2 Flow Rate 2.00 Capillary Refill : Less Than 3 SecondsLess Than 3 Seconds I&O Intake and Output 09/18/20 00:00 Intake Total 1890 ml Output Total 2800 ml Balance -910 ml Intake Oral 1890 ml Output Urine Total 2800 ml General: Alert, Cooperative, No Acute Distress Neck: No JVD Lungs: Other (rhonchi) Heart: Regular Rate, Normal S1, Normal S2 Abdomen: Normal Bowel Sounds, Soft Extremities: No Clubbing Psych/Mental Status: Mental Status NL, Mood NL Results Lab Laboratory Tests 09/18/20 05:26 A/P-Cardiology Admission Diagnosis CHF COPD CAD HLP Assessment/Plan Acute on chronic LV CHF, ischemic in nature, ejection fraction 30-35 percent compared to the last echo that was done last month with normal EF. Maintained on JOSE-I, beta arya, lasix, I will repeat 2-D echo AE COPD, management per medical services Coronary artery disease, extensive history with history of CABG in 2004, multiple intervention in the past, reporting that he required 17 stents. Cardiac catheterization was carried out emergently yesterday which showed occluded LAD with patent vein graft to the diagonal artery that is filling the L AD. There is another vein graft presumably to an obtuse marginal branch that is occluded. Dominant circumflex artery that has [id number] disease with patent stent, the first obtuse marginal branch is occluded and appeared to be chronic total occlusion. The right coronary artery is small nondominant artery with severe stenosis at the midportion. Attempted to cross the chronically occluded vein graft without any success. Used backup balloon and used multiple different wires without the ability to cross the chronic total occlusion. Conservative management is recommended. Continue on aspirin and Plavix Generalized weakness, debility, continue PT/OT Hyperlipidemia, maintained on statin. Continue to monitor lipids Diabetes mellitus, followed and managed by primary care physician History of seizure disorder History of neurogenic bladder Patient was seen and evaluated with Karis, examination performed, management plan was discussed, agree with the current scribed note, I made few changes to the note using Italic font Patient was seen at bedside laying down comfortably, denied any active pain. No new complaint. Continue on current medication with diuretics, monitor, does not exhibit symptoms and signs of congestive heart failure, I will repeat 2-D echocardiogram Clinical Quality Measures DVT/VTE Risk/Contraindication: Risk Factor Score Per Nursin RFS Level Per Nursing on Admit: 4+=Very High KARIS MARTÍNEZ Sep 18, 2020 14:46 MANE VARGAS MD Sep 18, 2020 15:40
[2020-09-18] MEDS: SIMvastatin 40 MG (ZOCOR) TAB PO SCH (15:39)
[2020-09-18] MEDS: ENOXAPARIN 40 MG/0.4 ML (LOVENOX) SYR SC SCH (15:39)
[2020-09-18] MEDS: TAMSULOSIN 0.4 MG (FLOMAX) CAP PO SCH (15:39)
[2020-09-18 16:12] VITALS: BP 125/57
--- NOTE | 2020-09-18 18:08 | Physician Query Clarification ---
"Physician Query-General Query to Physician: The medical record reflects the following clinical scenario: History/Risk factors: Severe End stage ischemic cardiomyopathy, Clinical Findings: BNP 10,410, CXR: Central vascular congestion and borderline pulmonary edema Treatment: Lasix 80 mg IV X 2, I and 0 monitoring, Cardiology consult, Echo Question: Do you agree with the impression of Acute Systolic Heart failure per Dr. Magana and Dr. Arellano? If you agree, please document in Progress Notes or Discharge Summary. 1. Yes; will document Pulmonary Edema due to Acute Systolic Heart failure present on admission in the Progress Notes 2. No; will continue to document Pulmonary Edema in the Progress Notes 3. Other; will document explanation of clinical findings 4. Clinically undetermined; no explanation for clinical findings Please remember a lack of response to the above will prompt a phone page by CDI/coding staff. In responding to this query, please exercise your independent professional judgment. The purpose of this communication is to more accurately reflect the complexity of your patients condition. The fact that a question is asked does not imply that any particular answer is desired or expected. Thank you for timely response to this clarification. Amrita Kothari, MSN, RN RN Specialist-Clinical Doc Improvement CD -Health Info Mgmt Operations [address] [facility] t: [phone] | f: [phone] If you are unable to reach me at my extension, I may be working from home. Please contact me at [phone] PHYSICIAN RESPONSE: Based on the clinical findings in the record, please respond to the query above on this document as an addendum. Physician Response: Physician Response 1 If you have questions please contact: Cpc: Ext: Thank you for your time and cooperation. Clinical Soil Biology Teacher/Cpc This is a permanent part of the medical record AMRITA KOTHARI Sep 18, 2020 18:08 PHI ALVARADO MD Sep 20, 2020 14:22"
[2020-09-18 18:24] VITALS: BP 125/57
--- NOTE | 2020-09-18 21:40 | Discharge Summary ---
Discharge Summary Hospital Course Problems/Diagnosis: (1) Acute systolic (congestive) heart failure Status: Acute Assessment & Plan: Present on admission, EF low on prior admission. Went home on hospice per his and family's request. (2) Pulmonary edema Status: Acute Assessment & Plan: Secondary to acute systolic CHF. Recent hospitalizations for fluid overload and elevated BNP. Previous echo with EF 30%. Had marked diuresis with lasix 80 mg IV given in ER, repeat on arrival. Cardiology consulted, appreciate recommendations. 09/17- resumed home oral lasix Qualifiers: Qualified Codes: J81.0 - Acute pulmonary edema (3) Hypoxia Status: Acute Assessment & Plan: On home oxygen, although possibly not continuously. Requiring 2 lpm currently, continue treatment for fluid overload and COPD, no clear evidence of COPD exacerbation, suspect more pulmonary edema related. (4) HLD (hyperlipidemia) Status: Chronic (5) CAD (coronary artery disease) Status: Chronic (6) Urinary retention Status: Chronic (7) COPD (chronic obstructive pulmonary disease) Status: Chronic (8) Hypertension Status: Chronic (9) Seizure disorder Status: Chronic (10) Diabetes mellitus Status: Chronic Qualifiers: (11) Chronic pain Status: Chronic Hospital Course Date of Admission: Sep 16, 2020 at 10:43 Admission Diagnosis : Family Physician/Provider: Claus Couch MD Date of Discharge: 09/18/20 Discharge Diagnosis: End stage systolic congestive heart failure See problem list Hospital Course: See problem list, pt chose to discharge with hospice services. Labs and Pending Lab Test: Laboratory Tests 09/18/20 05:26: White Blood Count 5.4, Red Blood Count 3.12L, Hemoglobin 7.8L, Hematocrit 25L, Mean Corpuscular Volume 80, Mean Corpuscular Hemoglobin 25, Mean Corpuscular Hemoglobin Concent 31L, Red Cell Distribution Width 15.1H, Platelet Count 271, Mean Platelet Volume 8.7L, Sodium Level 137, Potassium Level 3.9, Chloride Level 95L, Carbon Dioxide Level 28, Anion Gap 14, Blood Urea Nitrogen 37H, Creatinine 1.16, Estimat Glomerular Filtration Rate > 60, BUN/Creatinine Ratio 32, Glucose Level 83, Calcium Level 9.2 Home Meds Active Reported Prednisone 10 Mg Tab Mg PO DAILY TAKING TAPER DOSE Aspirin 81 Mg Tab.chew 81 Mg PO HS Carvedilol 3.125 Mg Tablet 3.125 Mg PO BID Oxycodon-Acetaminophen 7.5-325 (Oxycodone HCl/Acetaminophen) 1 Each Tablet 1 Ea PO DAILY PRN Docusate Sodium 100 Mg Capsule 100 Mg PO BID Oxycontin (Oxycodone HCl) 20 Mg Tab.er.12h 20 Mg PO BID Nitrofurantoin [place]-Mcr 100 mg (Nitrofurantoin Monohyd/M-Cryst) 100 Mg Capsule 1 Ea PO DAILY Narcan (Naloxone HCl) 4 Mg [place] 4 Mg NS UD 1 SPRAY IN ONE NOSTRIL NEEDED FOR OVERDOSE, MAY REPEAT 1 TIME IN 2-3 MINUTES IF NO RESPONSE Miralax (Polyethylene Glycol 3350) 17 Gm Powd.pack 17 Gm PO DAILY PRN Magnesium (Magnesium Oxide) 250 Mg Tablet 250 Mg PO DAILY Ativan (Lorazepam) 1 Mg Tablet 1 Mg PO TID PRN Loratadine 10 Mg Tablet 10 Mg PO DAILY Lamotrigine 100 Mg Tablet 100 Mg PO BID Potassium Chloride 20 Meq Tab.er.prt 20 Meq PO DAILY Neurontin (Gabapentin) 300 Mg Capsule 300 Mg PO HS Furosemide 40 Mg Tablet 40 Mg PO DAILY Fluoxetine HCl 20 Mg Capsule 20 Mg PO DAILY Clotrimazole 15 Gm Cream..g. 1 Applic TP BID Tylenol Extra Strength (Acetaminophen) 500 Mg Tablet 1,000 Mg PO Q6H PRN Acid Christmas Tree Farmer (FAMOTIDINE) (Famotidine) 20 Mg Tablet 20 Mg PO HS Ramipril 5 Mg Capsule 5 Mg PO DAILY Urecholine (Bethanechol Chloride) 10 Mg Tablet 25 Mg PO BID Olanzapine 5 Mg Tablet 5 Mg PO HS Metformin HCl 850 Mg Tablet 850 Mg PO DAILY Levetiracetam 500 Mg Tablet 500 Mg PO BID Fenofibrate (Fenofibrate Nanocrystallized) 145 Mg Tablet 145 Mg PO 1700 TAKES WITH SUPPER Ezetimibe 10 Mg Tablet 10 Mg PO HS Clopidogrel (Clopidogrel Bisulfate) 75 Mg Tablet 75 Mg PO DAILY Temazepam 7.5 Mg Capsule 7.5 Mg PO HS Trazodone HCl 50 Mg Tablet 50 Mg PO HS Betimol (Timolol) 5 Ml Drops 1 Drop OU BID Flomax (Tamsulosin HCl) 0.4 Mg Cap 0.4 Mg PO 1700 TAKES 30 MINUTES AFTER DINNER Simvastatin 40 Mg Tablet 40 Mg PO 1800 Assessment/Pt DC Instructions Discharged with hospice services. Discharge Diet: Low Sodium Diet Activity as Tolerated: Yes Discharge Physical Examination Allergies: Coded Allergies: Penicillins (Verified Allergy, Unknown, 09/16/20) doxycycline (Verified Allergy, Unknown, RASH, 09/16/20) phenobarbital (Verified Allergy, Unknown, 09/16/20) RELAXES ME TOO MUCH piperacillin (Verified Allergy, Unknown, RASH, PT HAS RECEIVED CEFAZOLIN IN THE PAST W/O ISSUE, 09/16/20) sulfamethoxazole (Verified Allergy, Unknown, 09/16/20) terazosin (Verified Allergy, Unknown, 09/16/20) CHEST PAIN General Appearance: No Apparent Distress Respiratory: No Accessory Muscle Use, Rales Cardiovascular: Regular Rate, Rhythm Skin: Normal Color, Warm/Dry Neurologic/Psychiatric: Alert Clinical Quality Measures DVT/VTE Risk/Contraindication: Risk Factor Score Per Nursin RFS Level Per Nursing on Admit: 4+=Very High PHI ALVARADO MD Sep 18, 2020 12:01
== END 2020-09-18 11:49 | disposition hospice, home (50) ==
LOC: EDUNIT# 06:22 → ER FS 06:27 → 4TH 10:30 → INTOOBSV 10:43 → UNDOADMOB 10:43 → 4TH 10:43 → UNDODISOB 09-18 18:30
PROVIDERS: ADMIT Family Medicine; ATTEND Family Medicine
DX: I11.0 Hypertensive heart disease with heart failure (principal); I50.43 Acute on chronic combined systolic (congestive) and diastolic (congestive) heart failure; I50.84 End stage heart failure; J81.0 Acute pulmonary edema; R09.02 Hypoxemia; E78.5 Hyperlipidemia, unspecified; I25.10 Atherosclerotic heart disease of native coronary artery without angina pectoris; J44.9 Chronic obstructive pulmonary disease, unspecified; R33.9 Retention of urine, unspecified; E11.9 Type 2 diabetes mellitus without complications; G89.29 Other chronic pain; I34.0 Nonrheumatic mitral (valve) insufficiency; J44.1 Chronic obstructive pulmonary disease with (acute) exacerbation; Z79.82 Long term (current) use of aspirin; Z79.899 Other long term (current) drug therapy; Z79.84 Long term (current) use of oral hypoglycemic drugs; Z88.0 Allergy status to penicillin; Z88.2 Allergy status to sulfonamides; Z88.8 Allergy status to other drugs, medicaments and biological substances; Z88.1 Allergy status to other antibiotic agents; Z87.891 Personal history of nicotine dependence
CPT/HCPCS: 36415; 71045; 80048; 80053 ×2; 83880; 84484; 85025 ×2; 85027; 85610; 85730; 93005; 93306; 99283; G0378